=== PATIENT | male | born 1970 | race Caucasian/White ===

== ENCOUNTER → 2016-12-30 | Outpatient (CLI) | payer OTHER ==
[~2016-12-30] MED LIST: ANDROGEL; DDAVP/1; EFFSR150; HYD10; LAMO200T38; LEVO150T48; LRT5; QUET1TAB34; RIZA10TA19; TRAM-10
== END | disposition home or self-care (01) ==
LOC: C.LAB1850 10:53
PROVIDERS: ATTEND Psychiatry & Neurology Neurology
DX: G40.909 Epilepsy, unspecified, not intractable, without status epilepticus (principal)

== ENCOUNTER → 2017-01-14 | Outpatient (CLI) | payer OTHER ==
[2017-01-14 10:18] LABS: BLOOD UREA NITROGEN 16 mg/dl (7-18); BUN/CREATININE RATIO 12.5 (10-20); CALCIUM 9.3 mg/dl (8.5-10.1); CARBON DIOXIDE 28 mmol/L (21-32); CHLORIDE 101 mmol/L (98-107); CHOLESTEROL 207 mg/dl (0-200); GLUCOSE 108 mg/dl (70-99); POTASSIUM 4.4 mmol/L (3.5-5.1); SODIUM 136 mmol/L (136-145); TRIGLYCERIDES 145 mg/dl (0-150); VERY LOW DENSITY LIPOPROT CALC 29 mg/dl
[2017-01-14 10:22] LABS: CHOLESTEROL/HDL RATIO 4.5; HDL CHOLESTEROL 46 mg/dl; LDL CHOLESTEROL CALCULATED 132 mg/dl
== END | disposition home or self-care (01) ==
LOC: C.LAB1850 09:16
PROVIDERS: ATTEND Internal Medicine
DX: R73.9 Hyperglycemia, unspecified (principal); E78.1 Pure hyperglyceridemia

== ENCOUNTER → 2017-02-09 | Outpatient (CLI) | payer OTHER | END | disposition home or self-care (01) | LOC: C.PATHSPEC 14:23 | PROVIDERS: ATTEND Dermatology | DX: L57.0 Actinic keratosis (principal); L91.8 Other hypertrophic disorders of the skin ==

== ENCOUNTER → 2017-03-16 | Outpatient (CLI) | payer OTHER ==
[~2017-03-16] VITALS: Ht 182.9 cm; Wt 96.6 kg
[2017-03-16 09:33] VITALS: BP 154/80; PULSE 85; Ht 182.9 cm; Wt 96.6 kg
== END | disposition home or self-care (01) ==
LOC: C.NEUR 09:16
PROVIDERS: ATTEND Internal Medicine Pulmonary Disease
DX: G47.33 Obstructive sleep apnea (adult) (pediatric) (principal); E23.0 Hypopituitarism

== ENCOUNTER → 2017-04-29 | Outpatient (CLI) | payer OTHER ==
--- NOTE | 2017-04-30 06:12 | PAP/PSG TECHNICIAN REPORT ---
[facility] Content Designer Polysomnogram Report Study name: None Report date: 04/30/2017 Study date: 04/29/2017 Referring Physician: Dr. Mcclellan Name: LINSEY LEIVA JR. Interpreting Physician: Skyler Mcclellan D.O. Date of : 1970 Content Designer: Akash Russell RPSOLIVE. Sex: Male Age: 46 StudyType: PSG Weight: 212 lbs 18.5 inches Height: 46 years, Height 6' 0" Neck Circum: BMI: 28.75 Medications: BENZONATATE 100 MG, LEVOFLOXACIN 500 MG, METHYIPREDNISONE 4 MG, RIZATRIPTAN BENZOATE 10 MG, DIVALPROEX SODIUM 500 MG, FISH OIL 1000 MG, ANDROGEL PUMP, HUMATROPE 12 MG, HYDROCORTISONE 10 MG, SYNTHROID 175 MCG, DESMOPRESSIN ACETATE 0.2 MG, NAPROXEN 500 MG, LORAZEPAM 0.5 MG, Patient History PATIENT HAS HISTORY OF SNORING AND POSSIBLE SLEEP APNEA. OVER THE YEARS HE HAS WORKED SEVERAL JOBS REQUIRING SHIFT WORK. HE STRUGGLES WITH INSOMNIA AND DOESN'T HAVE A REGULAR SLEEP SCHEDULE. HE FEELS HE ONLY SLEEPS FOR 4-5 HOURS AT NIGHT. HE IS HERE TODAY FOR AN EVALUATION FOR CORINA. ESS = 2 RM 7 Parameters Monitored NPSG: E1-M2, E2-M1, Fp1-M2, Fp2-M1, F3-M2, F4-M2, F4-M1, C3-M2, C4-M2, C4-M1, O1-M2, O2-M2, O2-M1, T3-M2, T4-M1, P3-M2, P4-M1, CHIN1, CHIN2, HR, EKG, Legs, PFLOW, SNOR, FLOW, CFLOW, Tidal Volume, THOR, ABDO, SpO2, PLTH, CPRESS, ETCO2 Wave, ETCO2, pH Sleep Architecture Sleep Stages Time at Lights Off 10:46:53 PM STAGES Time (min.) TST (%) Time at Lights On 5:50:53 AM Wake 160.0 -- Total Recording Time (TRT) 424.50 min. N1 4.5 2 Total Sleep Period (TSP) 324.0 min. N2 127.5 48 Total Sleep Time (TST) 264.0min. N3 68.0 26 Awake Time 160.5 min. REM 64.0 24 Wake after Sleep Onset 60.0 min. Sleep Efficiency (SE) 62 % Sleep Onset Latency (MATY) 100.0 min. Number of Stage 1 Shifts None Awakenings 4 Stage Changes 27 Number of REM periods 3 REM 64.0 24 REM Latency 62.5 min. NREM 200.0 76 Body Position Analysis Supine Right Left Side Prone Vertical Total Sleep Time (min.) 309.7 84.0 0.0 84.00 0.0 0.0 Total Sleep Time (%) 68% 32% 0% 32 0% N/A% Total Sleep Time REM (min.) 42.5 21.5 0.0 None 0.0 0.0 Total Sleep Time NREM (min.) 137.5 62.5 0.0 None 0.0 0.0 Intermittent Wake (min.) 129.7 30.3 0.0 None 0.0 0.0 Total Sleep Period (%) 66% None None None None None Arousals Myoclonus (PLM) * Events Count Index Events Count Index Spontaneous 13 3 Events Awake (PLMW) 301 112.9 Respiratory 6 1.4 Events Asleep w/ Arousal (PLMA) 13 3.0 PLM 13 3 Events Asleep w/o Arousal (PLMS) 73 16.6 Snoring 1 0 Total Asleep 86 19.5 Total 33 8 Total 387 55 Respiratory Analysis * CA OA MA CH H RERA Total Count 0 0 0 0 41 3 41 Index 0.0 0.0 0.0 0 9.3 1 10.0 Mean Duration 0.0 0.0 0.0 0.00 23.2 18.7 22.9 Longest Duration 0.0 0.0 0.0 0.00 0.0 20.4 41.2 Respiratory Event Summary Total Supine ~Supine Right Left Prone REM NREM Apneas Count 0 0 0 0 N/A N/A 0 0 Index 0.0 0 0 0.0 N/A N/A 0 0 Hypopneas (4% Desat) Count 41 37 4 4 N/A N/A 6 35 Index 9.3 12.3 3 2.9 N/A N/A 5.6 10.5 Apneas & All Hypopneas Count 41 37 4 4 N/A N/A 6 35 Index 9.3 12 3 3 N/A N/A 5.6 10.5 Respiratory Events (Managed Care Analyst+All Hyp+RERA) Count 41 40 4 4 N/A N/A 6 35 Index 10.0 13 3 2.9 N/A N/A 6.6 11.1 Respiratory Related Arousal Count 6 40 0 0 N/A N/A 1 5 Index 1.4 2 0 0 N/A N/A 1 2 Snoring Analysis Supine Right Left Prone REM NREM Total Snore duration 10.3 min Snores count 120 410 N/A N/A 20 510 530 Snore mean duration 1.2 Sec Snores index 40 293 N/A N/A 18.8 153.0 120.5 TST with snoring (%) 3.9% Desaturation Event Summary: Minimum %SpO2 Event Count Mean/Min/Max Duration(sec.) Desaturation Index % Time In Bed > 90 50 35.2 / 12.3 / 80.9 7.3 98.5 86 - 90 0 N/A 0.0 1.5 81 - 85 0 N/A 0.0 0.0 76 - 80 0 N/A 0.0 0.0 71 - 75 0 N/A 0.0 0.0 66 - 70 0 N/A 0.0 0.0 61 - 65 0 N/A 0.0 0.0 56 - 60 0 N/A 0.0 0.0 51 - 55 0 N/A 0.0 0.0 < 50 0 N/A 0.0 0.0 Total REM NREM Awake <50% 0.0 min. 0.0 min. 0.0 min. 0.0 min. 51 - 60% 0.0 min. 0.0 min. 0.0 min. 0.0 min. 61 - 70% 0.0 min. 0.0 min. 0.0 min. 0.0 min. 71 - 80% 0.0 min. 0.0 min. 0.0 min. 0.0 min. 81 - 90% 6.4 min. 2.2 min. 3.9 min. 0.3 min. 91 - 100% 408.3 min. 61.8 min. 196.1 min. 150.4 min. Average 93 93 93 94 Minimum SpO2 76 86 90 76 Desaturation Event Index 7.1 6.6 10.2 3.4 # Desat. Events below 89% 1 1 N/A N/A Time(%) with Saturation below 89% 0.0 0.0 0.0 0.0 Time(min.) with Saturation below 89% 0.2 0.2 0.0 0.0 Time (mins) REM (mins) NREM (mins) % of TST SpO2 Below 90% 22 6 N16 0.1 SpO2 Below 88% 0 0 0 0 Heart Rate Analysis Min (bpm) Max (bpm) Average (bpm) Awake 54 97 66 NREM 56 88 68 REM 63 90 75 Overall 56 90 70 Supplemental O2 Values Minimum O2 level: None Value Start Time End Time Content Designer Comments Mr. Leiva slept in the right and supine positions. No cardiac arrhythmia noted. Leg movements noted. No bruxism noted. Snoring was noted and scored as a 2 on a scale of 1 through 5. (0=no snoring, 5=snoring loud enough to be heard through a closed door or down the pratt way) Mr. Leiva awoke to use the restroom 2 times during the night. Mr. Leiva stated I slept as well as I do when I am in my own bed. The final report will be interpreted and signed by a sleep physician. The completed physician report will then be placed in the patient medical record. Therapy (cm H2O) 0 TIB (min.) 424.0 TST (min.) 264.0 Sleep Onset (min.) 100.0 REM Onset From Sleep (min.) 62.5 Sleep Efficiency % 62 Wakefulness (%) 38 Wakefulness (min.) 160.5 NREM 1 (%) 2 NREM 1 (min.) 4.5 NREM 2 (%) 48 NREM 2 (min.) 127.5 NREM 3 (%) 26 NREM 3 (min.) 68.0 REM (%) 24 REM (min.) 64.0 # Arousals 33 Arousal Index 8 # Snore 530 Snore Index 120.5 AHI 9.3 AHI Supine 12 AHI Non-Supine 3 NREM AHI 10.5 REM AHI 5.6 RDI 10.0 # Obstructive Apnea 0 # Central Apnea 0 # Mixed Apnea 0 # Hypopneas 41 RERAs 3 Total Respiratory Events 44 Time Below SpO2 89% (min.) 0.2 Mean NREM SpO2 (%) 93 Mean REM SpO2 (%) 93 Mean Sleep SpO2 (%) 93 Min NREM SpO2 (%) 90 Min REM SpO2 (%) 86 Position Supine (min.) 309.7 Position Non-supine (min.) 84.0 LM Index Sleep 19.5 LM Index NREM 21.6 LM Index REM 13.1 Mean Heart Rate (bpm) 70 Min Heart Rate (bpm) 56
--- NOTE | 2017-05-04 12:43 | POLYSOMNOGRAPH REPORT ---
REFERRING PHYSICIAN: Dr. Larry Amaral. CLINICAL DATA: The patient is a 46-year-old male who has a BMI of 28.75. He has a history of having surgical removal of a pituitary adenoma. Following his surgery, it was felt that he likely had obstructive sleep apnea during his hospital stay. He has a history of snoring and sleep onset insomnia and disturbed nocturnal sleep. His Crowley score is only 2 out of a possible 24. This was an in-lab diagnostic polysomnography. SLEEP ARCHITECTURE: The total sleep period was 324 minutes. The total sleep time was 264 minutes. The sleep efficiency was moderately reduced to 62%. Sleep onset latency was severely prolonged to 100 minutes. Wake after sleep onset was increased to 60 minutes. The REM latency was normal at 62.5 minutes. There were 3 REM periods during the night. Sleep consisted of stage N1 of 2%, stage N2 of 48%, stage N3 of 26%, and stage REM 24%. AROUSAL DATA: The patient had a total of 33 arousals including 13 spontaneous arousals, 6 respiratory arousals, 13 PLM arousals, and 1 snoring arousal. The arousal index was 8. PLM DATA: The patient had 86 periodic limb movements of sleep for an index of 19.5. There were 13 arousals, associated with the limb movements for a PLM arousal index of 3.0. EKG: The underlying cardiac rhythm was normal sinus. The cardiac rates ranged from 56 to 90 beats per minute with an average heart rate of 70 beats per minute. RESPIRATORY DATA: The patient had a total of 41 respiratory events, all of which were hypopneas. The hypopneas were scored according to the 4% desaturation rule. The apnea-hypopnea index was 9.3 events per hour. The mean duration of hypopnea was 23.2 seconds. In addition, he had 3 RERAs. The apnea-hypopnea index of 9.3 is compatible with mild obstructive sleep apnea. OXIMETRY DATA: The average saturation for the night was 93%. The minimum saturation was 76%. This appears to be a transient loose probe. This certainly was technical in nature. The patient had 0 minutes below 88%. ASSOCIATE DIRECTOR DATA & ANALYTICS'S COMMENTS: Mr. Leiva slept in the right and supine positions. No cardiac arrhythmia noted. Leg movements noted. No bruxism noted. Snoring was noted and scored as a 2 on a scale of 1 through 5. IMPRESSIONS: 1. Obstructive sleep apnea -- mild. 2. Periodic limb movement disorder. COMMENTS: The patient has mild sleep apnea. He did have a significant delay in sleep onset. This would be compatible with his history of sleep onset insomnia. Also, he was going to bed significantly earlier than he normally does. He spent 66% of the night in the supine position. There was no significant hypoxia. He does have a history of hypertension as well as the hormonal complications related to a pituitary adenoma. Thus, treatment of a sleep apnea likely would be advised. RECOMMENDATIONS: 1. It is suggested that the patient be given a trial of nasal CPAP. He should, however, confer with his neurosurgeon to be certain that they have no objection to nasal CPAP therapy following his surgery. 2. The patient has a mild elevation of body mass index of 28.75. Await reduction program as advised as even mild weight loss may result in improvement in sleep disordered breathing. 3. The patient should avoid sleeping in the supine position if at all possible.
== END | disposition home or self-care (01) ==
LOC: C.NEUR 20:00
PROVIDERS: ATTEND Internal Medicine Pulmonary Disease
DX: G47.33 Obstructive sleep apnea (adult) (pediatric) (principal)

== ENCOUNTER → 2017-05-12 | Outpatient (CLI) | payer OTHER ==
[2017-05-17 16:31] LABS: ILGF1 Z SCORE MALE 1.3 SD (-2.0 - +2.0)
== END | disposition home or self-care (01) ==
LOC: C.LAB1850 10:12
PROVIDERS: ATTEND Internal Medicine Endocrinology, Diabetes & Metabolism
DX: Z87.898 Personal history of other specified conditions (principal)

== ENCOUNTER → 2017-06-08 | Outpatient (CLI) | payer OTHER ==
[~2017-06-08] VITALS: Ht 180.3 cm; Wt 96.3 kg
[2017-06-08 09:38] VITALS: BP 126/85; PULSE 79; Ht 180.3 cm; Wt 96.3 kg
== END | disposition home or self-care (01) ==
LOC: C.NEUR 09:08
PROVIDERS: ATTEND Internal Medicine Pulmonary Disease
DX: G47.33 Obstructive sleep apnea (adult) (pediatric) (principal); G47.00 Insomnia, unspecified; F30.9 Manic episode, unspecified; L30.9 Dermatitis, unspecified; R73.9 Hyperglycemia, unspecified; Z79.899 Other long term (current) drug therapy

== ENCOUNTER → 2017-07-13 | Outpatient (CLI) | payer OTHER ==
[~2017-07-13] MED LIST changes: +GADAVIST IV PRN
--- NOTE | 2017-07-13 08:06 | DIAGNOSTIC IMAGING REPORT ---
BRAIN COMBO FOR PITUITARY CLINICAL HISTORY: 47 years-old Male presenting with PITUITARY NEOPLASM, hypogonadism, to prior surgery. TECHNIQUE: Multisequence, multiplanar MR imaging of the brain was performed before and after the administration of intravenous contrast. IV contrast: 9 mL of Gadavist. COMPARISON: 09/07/2016. FINDINGS: Post surgical changes of the sella with redemonstration of resection of prior pituitary mass. The infundibulum is midline and remains visible. Minimal thickening of the distal aspect of the infundibulum, which enhances on postcontrast imaging, likely normal. Eccentric right-sided hypovascular thick of soft tissue is noted along the floor of the sella, possibly minimal residual pituitary tissue versus postsurgical change. Cavernous portions of the carotid arteries preserved. Mucosal thickening in the sphenoid sinuses and posterior ethmoid air cells on the right. Additional mild mucosal thickening in the maxillary sinuses inferiorly. Ventricles and sulci normal in size. Posterior fossa arachnoid cyst. Brain parenchyma normal in appearance with preserved elias-white differentiation. No mass effect or midline shift. No hemorrhage or acute territorial infarct. T2 skull base flow voids preserved. No abnormal parenchymal enhancement. Bone marrow signal intensity within the calvarium within normal limits. IMPRESSION: Postsurgical changes of pituitary mass resection. Eccentric right-sided hypovascular soft tissue along the floor the sella likely represents postsurgical change versus minimal residual pituitary tissue. No convincing evidence of recurrent mass. Mild mucosal thickening in the paranasal sinuses. No acute intracranial pathology. Electronically signed by: Taye Boogie M.D. 07/13/2017 8:05 AM Dictated Date/Time: 07/13/2017 7:57 AM
== END | disposition home or self-care (01) ==
LOC: C.MRI 06:33
PROVIDERS: ATTEND Internal Medicine Endocrinology, Diabetes & Metabolism
DX: E23.0 Hypopituitarism (principal); E23.2 Diabetes insipidus; Z87.898 Personal history of other specified conditions

== ENCOUNTER → 2017-10-25 | Outpatient (CLI) | payer OTHER ==
[~2017-10-25] MED LIST changes: -GADAVIST IV PRN
== END | disposition home or self-care (01) ==
LOC: C.PATHSPEC 17:11
PROVIDERS: ATTEND Dermatology
DX: D22.4 Melanocytic nevi of scalp and neck (principal); L82.1 Other seborrheic keratosis

== ENCOUNTER → 2017-10-25 | Outpatient (CLI) | payer OTHER ==
[2017-10-25 15:22] LABS: BASO % 0.3 %; BASO ABS # 0.03 K/uL (0-0.2); COMPLETE YES; EOS % 1.1 %; HEMATOCRIT 46.6 % (42-52); IG% 0.3 %; LYMPH % 24.6 %; LYMPH ABS # 2.18 K/uL (1.2-3.4); MEAN CELL VOLUME 84.3 fL (80-100); MEAN CORPUSCULAR HEMOGLOBIN 30.7 pg (25-34); MEAN CORPUSCULAR HGB CONC 36.5 g/dl (32-36); MEAN PLATELET VOLUME 9.1 fL (7.4-10.4); MONO % 6.5 %; NEUT % 67.2 %; PLATELET COUNT 211 K/uL (130-400); RED BLOOD COUNT 5.53 M/uL (4.7-6.1); WHITE BLOOD COUNT 8.86 K/uL (4.8-10.8)
[2017-10-25 15:34] LABS: ALT/SGPT 25 U/L (12-78); BLOOD UREA NITROGEN 17 mg/dl (7-18); BUN/CREATININE RATIO 12.9 (10-20); CALCIUM 9.2 mg/dl (8.5-10.1); CARBON DIOXIDE 27 mmol/L (21-32); CHLORIDE 102 mmol/L (98-107); CREATININE 1.29 mg/dl (0.60-1.40); GLUCOSE 106 mg/dl (70-99); POTASSIUM 3.7 mmol/L (3.5-5.1); SODIUM 137 mmol/L (136-145)
[2017-10-25 15:37] LABS: ALB/GLOB RATIO 1.4 (0.9-2); ALKALINE PHOSPHATASE 91 U/L (45-117); AST/SGOT 13 U/L (15-37)
== END | disposition home or self-care (01) ==
LOC: C.LAB1850 14:15
PROVIDERS: ATTEND Psychiatry & Neurology Neurology
DX: G40.909 Epilepsy, unspecified, not intractable, without status epilepticus (principal); G43.909 Migraine, unspecified, not intractable, without status migrainosus

== ENCOUNTER → 2017-11-23 | Outpatient (CLI) | payer OTHER ==
[~2017-11-23] MED LIST changes: +LAMO200T35; -LAMO200T38
--- NOTE | 2017-11-23 17:58 | DIAGNOSTIC IMAGING REPORT ---
R ELBOW MIN 3 VIEWS ROUTINE HISTORY: 47 years-old Male S59.901A Injury of elbow, [id number] acute right elbow pain status post fall COMPARISON: None available TECHNIQUE: 3 views of the right elbow FINDINGS: No acute fracture, subluxation or significant degenerative changes. No large joint effusion or opaque foreign body. IMPRESSION: No acute bony abnormality. The above report was generated using voice recognition software. It may contain grammatical, syntax or spelling errors. Electronically signed by: Jaime Tolentino M.D. 11/23/2017 5:56 PM Dictated Date/Time: 11/23/2017 5:55 PM
--- NOTE | 2017-11-23 17:59 | DIAGNOSTIC IMAGING REPORT ---
R SHOULDER MIN 2 VIEWS ROUTINE HISTORY: 47 years-old Male S49.91XA Right shoulder [id number] acute right shoulder pain status post trauma COMPARISON: Chest radiographs 08/07/2010 TECHNIQUE: 3 views of the right shoulder FINDINGS: No acute fracture, subluxation or significant degenerative changes. No intra-articular loose body. Imaged lung kong appear clear. IMPRESSION: No acute fracture or dislocation. The above report was generated using voice recognition software. It may contain grammatical, syntax or spelling errors. Electronically signed by: Jaime Tolentino M.D. 11/23/2017 5:58 PM Dictated Date/Time: 11/23/2017 5:57 PM
== END | disposition home or self-care (01) ==
LOC: C.RAD 17:10
PROVIDERS: ATTEND Internal Medicine
DX: S49.91XA Unspecified injury of right shoulder and upper arm, initial encounter (principal); X58.XXXA Exposure to other specified factors, initial encounter; S59.901A Unspecified injury of right elbow, initial encounter

== ENCOUNTER → 2017-11-29 | Outpatient (CLI) | payer OTHER ==
[2017-11-29 09:33] LABS: BASO % 0.7 %; BASO ABS # 0.05 K/uL (0-0.2); EOS % 1.9 %; EOS ABS # 0.13 K/uL (0-0.5); HEMATOCRIT 46.7 % (42-52); IG# 0.01 K/uL (0.00-0.02); LYMPH % 25.7 %; LYMPH ABS # 1.75 K/uL (1.2-3.4); MEAN CELL VOLUME 84.6 fL (80-100); MEAN CORPUSCULAR HEMOGLOBIN 30.8 pg (25-34); MEAN CORPUSCULAR HGB CONC 36.4 g/dl (32-36); MONO % 10.1 %; MONO ABS # 0.69 K/uL (0.11-0.59); NEUT % 61.5 %; NEUT ABS # 4.17 K/uL (1.4-6.5); PLATELET COUNT 214 K/uL (130-400); RED CELL DISTRIBUTION WIDTH CV 13.6 % (11.5-14.5); RED CELL DISTRIBUTION WIDTH SD 41.4 fL (36.4-46.3)
[2017-11-29 10:36] LABS: BLOOD UREA NITROGEN 18 mg/dl (7-18); CALCIUM 9.3 mg/dl (8.5-10.1); CARBON DIOXIDE 27 mmol/L (21-32); CREATININE 1.37 mg/dl (0.60-1.40); GLUCOSE 105 mg/dl (70-99); POTASSIUM 3.6 mmol/L (3.5-5.1); SODIUM 137 mmol/L (136-145)
[2017-11-29 10:49] LABS: ALKALINE PHOSPHATASE 86 U/L (45-117); ALT/SGPT 29 U/L (12-78); AST/SGOT 15 U/L (15-37); CHOLESTEROL 215 mg/dl (0-200); LDL CHOLESTEROL CALCULATED 133 mg/dl; TOTAL PROTEIN 6.9 gm/dl (6.4-8.2)
== END | disposition home or self-care (01) ==
LOC: C.LAB1850 08:49
PROVIDERS: ATTEND Internal Medicine
DX: E78.1 Pure hyperglyceridemia (principal); E03.8 Other specified hypothyroidism; R73.9 Hyperglycemia, unspecified; E23.2 Diabetes insipidus

== ENCOUNTER → 2017-12-07 | Outpatient (CLI) | payer OTHER | END | disposition home or self-care (01) | LOC: C.LABPBG 08:08 | PROVIDERS: ATTEND Psychiatry & Neurology Neurology | DX: G40.909 Epilepsy, unspecified, not intractable, without status epilepticus (principal) ==

== ENCOUNTER → 2017-12-08 | Outpatient (CLI) | payer OTHER | END | disposition home or self-care (01) | LOC: C.LAB1850 09:39 | PROVIDERS: ATTEND Physician Assistant | DX: G40.909 Epilepsy, unspecified, not intractable, without status epilepticus (principal) ==

== ENCOUNTER → 2017-12-19 | Outpatient (CLI) | payer OTHER ==
[~2017-12-19] MED LIST changes: +GADAVIST IV PRN
--- NOTE | 2017-12-19 07:44 | DIAGNOSTIC IMAGING REPORT ---
BRAIN COMBO FOR SEIZURE CLINICAL HISTORY: 47 years-old Male presenting with G40.909 Seizure [id number] headaches, history of surgery x2. TECHNIQUE: Multisequence, multiplanar MR imaging of the brain was performed before and after the administration of intravenous contrast. IV contrast: 9.6 mL of Gadavist. COMPARISON: 07/13/2017. FINDINGS: Postsurgical changes of pituitary mass resection with stable slightly asymmetric soft tissue along the right floor the sella. This is essentially unchanged dating back to 2005. No convincing evidence of recurrent mass. Stable to fossa arachnoid cyst. No hydrocephalus. Brain parenchyma normal in appearance with preserved elias-white differentiation. No mass effect or midline shift. No restricted diffusion to suggest acute ischemia. No hemorrhage. No extra-axial fluid collection. T2 skull base flow voids preserved. No abnormal parenchymal enhancement. Bone marrow signal intensity within the calvarium within normal limits. IMPRESSION: 1. Stable post surgical changes status post pituitary mass resection. The appearance is essentially unchanged dating back to 2005. No convincing evidence of recurrent mass. No acute intracranial pathology. Electronically signed by: Taye Boogie M.D. 12/19/2017 7:42 AM Dictated Date/Time: 12/19/2017 7:33 AM
== END | disposition home or self-care (01) ==
LOC: C.MRI 06:24
PROVIDERS: ATTEND Physician Assistant
DX: R51 Headache (principal); G40.909 Epilepsy, unspecified, not intractable, without status epilepticus; Z98.890 Other specified postprocedural states

== ENCOUNTER → 2018-03-27 | Outpatient (CLI) | payer OTHER ==
[~2018-03-27] MED LIST changes: -GADAVIST IV PRN
--- NOTE | 2018-03-27 16:17 | DIAGNOSTIC IMAGING REPORT ---
CHEST 2 VIEWS ROUTINE HISTORY: 47 years-old Male R05 [id number] acute cough COMPARISON: Chest radiograph 08/07/2010 TECHNIQUE: PA and lateral views of the chest FINDINGS: Cardiomediastinal and hilar silhouettes are within normal limits. There is no pneumothorax, pleural effusion, focal airspace consolidation or overt pulmonary edema. Bones of the chest appear grossly intact. Healed remote left clavicular fracture. IMPRESSION: No acute process. The above report was generated using voice recognition software. It may contain grammatical, syntax or spelling errors. Electronically signed by: Jaime Tolentino M.D. 03/27/2018 4:15 PM Dictated Date/Time: 03/27/2018 4:14 PM
[2018-03-27 16:45] LABS: BASO % 0.4 %; BASO ABS # 0.03 K/uL (0-0.2); EOS % 1.7 %; EOS ABS # 0.13 K/uL (0-0.5); HEMATOCRIT 47.5 % (42-52); HEMOGLOBIN 17.6 g/dL (14.0-18.0); IG# 0.02 K/uL (0.00-0.02); LYMPH % 36.3 %; MEAN CELL VOLUME 83.6 fL (80-100); MEAN CORPUSCULAR HGB CONC 37.1 g/dl (32-36); MEAN PLATELET VOLUME 8.6 fL (7.4-10.4); MONO % 8.2 %; MONO ABS # 0.61 K/uL (0.11-0.59); NEUT % 53.1 %; NEUT ABS # 3.95 K/uL (1.4-6.5); PLATELET COUNT 180 K/uL (130-400); RED CELL DISTRIBUTION WIDTH CV 13.3 % (11.5-14.5); RED CELL DISTRIBUTION WIDTH SD 39.8 fL (36.4-46.3); WHITE BLOOD COUNT 7.44 K/uL (4.8-10.8)
[2018-03-27 17:05] LABS: BLOOD UREA NITROGEN 13 mg/dl (7-18); CALCIUM 8.9 mg/dl (8.5-10.1); CARBON DIOXIDE 29 mmol/L (21-32); CREATININE 1.34 mg/dl (0.60-1.40); GLUCOSE 92 mg/dl (70-99); POTASSIUM 3.7 mmol/L (3.5-5.1); SODIUM 139 mmol/L (136-145)
== END | disposition home or self-care (01) ==
LOC: C.RAD1850 15:59
PROVIDERS: ATTEND Nurse Practitioner Adult Health
DX: E23.2 Diabetes insipidus (principal); E27.49 Other adrenocortical insufficiency; R50.9 Fever, unspecified; R05 Cough; E78.1 Pure hyperglyceridemia

== ENCOUNTER → 2018-04-10 | Outpatient (CLI) | payer OTHER | END | disposition home or self-care (01) | LOC: C.LABPBG 08:55 | PROVIDERS: ATTEND Physician Assistant | DX: G40.909 Epilepsy, unspecified, not intractable, without status epilepticus (principal) ==

== ENCOUNTER → 2018-06-19 | Outpatient (CLI) | payer OTHER | END | disposition home or self-care (01) | LOC: C.LAB1850 16:29 | PROVIDERS: ATTEND Urology | DX: R39.9 Unspecified symptoms and signs involving the genitourinary system (principal) ==

== ENCOUNTER 2021-04-19 18:29 | Observation (INO) ==
[2021-04-19 19:11] LABS: Basophils # (auto) 0.02 K/uL (0-0.2); Basophils % (auto) 0.2 %; Eosinophils % (auto) 0.8 %; Hematocrit (blood only) 48.2 % (42-52); Hemoglobin 17.1 g/dL (14.0-18.0); Immature Granulocytes # (auto) 0.14 K/uL (0.00-0.02); Immature Granulocytes % (auto) 1.2 %; Lymphocytes # (auto) 2.88 K/uL (1.2-3.4); Lymphocytes % (auto) 24.4 %; Mean Corpuscular Hemoglobin 32.7 pg (25-34); Mean Corpuscular Hgb Conc 35.5 g/dL (32-36); Mean Corpuscular Volume 92.2 fL (80-100); Mean Platelet Volume 8.7 fL (7.4-10.4); Monocytes # (auto) 0.81 K/uL (0.11-0.59); Monocytes % (auto) 6.9 %; Neutrophils # (auto) 7.83 K/uL (1.4-6.5); Neutrophils % (auto) 66.5 %; Platelet Count 131 K/uL (130-400); RDW Coefficient of Variation 14.6 % (11.5-14.5); RDW Standard Deviation 49.1 fL (36.4-46.3); Red Blood Count 5.23 M/uL (4.7-6.1); White Blood Count 11.78 K/uL (4.8-10.8)
--- NOTE | 2021-04-19 19:18 | Emergency Department Note ---
Impression & Plan Pulmonary edema, Elevated LFTs, Abnormal weight gain, SOB (shortness of breath) ED Provider Note NAME: LINSEY VIRAMONTES JR AGE: 50 SEX: M : 1970 ARRIVES VIA: Walk-In INFORMANT: Patient, ED PROVIDER(S): Larry Franklin DO CHIEF COMPLAINT: Epigastric pain HPI: The patient is a 50-year-old male who presented to the emergency department for an evaluation of epigastric pain. The patient states he has pain in his epigastric region and behind his sternum which has been ongoing for the last few months. He notices it intermittently. He is also noticed weight gain and shortness of breath. He is also noticed increasing shortness of breath with exertion. The patient did not talk to his family doctor about the symptoms. He did recently have injections into his lumbar spine with Dr. Garcia with pain management. He states he is been compliant with all his other medications. He does have a history of renal insufficiency at times. He is concerned his kidneys may be not working as well as normal. He denies having any fever or cough. He has had no exposure to COVID-19. The patient states his symptoms are moderate to severe at this time. ROS: See above HPI for pertinent positives & negatives. A total of 10 systems reviewed and were otherwise negative. PAST MEDICAL HISTORY: See Below PAST SURGICAL HISTORY: See Below FAMILY HISTORY: See Below SOCIAL HISTORY: See Below HOME MEDICATIONS: See Below ALLERGIES: See Below VITALS: See Below PHYSICAL EXAMINATION: GENERAL: Patient is awake alert in no acute distress patient is resting comfortably and showing no signs of anxiety EYES: The conjunctivae are clear. The pupils are round and reactive. EARS, NOSE, MOUTH AND THROAT: The nose is without any evidence of any deformity. Mucous membranes are moist. Tongue is midline. NECK: The neck is nontender and supple. RESPIRATORY: Diminished breath sounds are noted at both bases. There were rales at both bases right greater than left. CARDIOVASCULAR: Regular rate and rhythm noted there no murmurs rubs or gallops normal S1 normal S2. GASTROINTESTINAL: The abdomen is soft. Abdomen is nontender. MUSCULOSKELETAL/EXTREMITIES: There is no evidence of gross deformity full range of motion is noted in the hips and shoulders. SKIN: Pedal edema was noted bilaterally. Skin was warm and dry. NEUROLOGIC: Patient is awake alert and oriented x3 strength is symmetric patellar reflexes are 2+ bilaterally MEDICAL DECISION MAKING: The patient is a 50-year-old male who presented to the emergency department for an evaluation of difficulty breathing. The patient did notice shortness of breath mostly at night but not necessarily associated with lying flat. The cardiac history but when he talked to visiting nurse this evening he was referre d to the emergency department for further evaluation. The patient did have rales at the bases. Chest x-ray revealed signs of pulmonary edema. He was treated with Lasix in the emergency department. I discussed the patient's laboratory and radiographic studies with him. Since he has no history of similar issues and has significant weight gain his significant other did request that he stay in the hospital for inpatient work-up. The [facility] hospitalist was notified about the patient in the emergency department. They will evaluate the patient in the emergency department. Triage Nursing notes reviewed. Prior medical records reviewed Vital Signs: reviewed and remarkable for elevated blood pressure. Differential diagnosis: Reactive airway disease, pneumonia, pneumothorax, COPD, CHF, infections, cardiac ischemia, pulmonary embolism, musculoskeletal, gastrointestinal, as well as other pathologies. ER treatment provided: See below Diagnostics interpreted by me: ECG: EKG was obtained in the emergency department. My interpretation is normal sinus rhythm at 83 bpm. There is no ectopy. There is no acute ST segment abnormalities noted. This was compared to a tracing from March 01, 2008. No significant changes were noted. Cardiac Monitoring: An order was placed for continuous cardiac monitoring. The monitor shows a rate of 86 bpm with sinus rhythm. Laboratory studies: As stated above and show below. Imaging studies: See below Consultation(s): Dr. Delcid was notified about the patient. 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 last grand mal Oct 2020 > follows Dr. José Luis Tremor Surgical History History of bladder surgery remove mass History of brain [place] x2[place] [facility] [place] [facility]for brain tumors History of colonoscopy History of esophagogastroduodenoscopy (EGD) History of lithotripsy History of prostate surgery remove mass History of tooth extraction History of wisdom tooth extraction Status post right foot surgery replaced 5th metatarsal--hardware in place Family History Grandmother (Paternal) Family history of diabetes mellitus Aunt Family history of diabetes mellitus Uncle Family history of diabetes mellitus Father Prostate cancer Heart disease Mother Cardiac disorder Grandmother (Maternal) Myocardial infarction Other No family history of adverse response to anesthesia Denies family history of Ovarian cancer Breast cancer Colorectal cancer Social History Smoking Status: Never smoker Second Hand Exposure: No; Hx Alcohol Use: No Hx Substance Use: No Preferred Language: Setswana Communication Ability: Effective Visual Impairment: No Limitations Hearing Ability: Normal Color Card Maker Required: No Beliefs That Will Affect Care: None marital status: Legally Current Living Situation: Significant Other current occupational status: unemployed Other Information That Helps Us Care for You: No Feels Safe at Home: Yes Safety Concerns: Feels Safe At This Time Childhood Exposure to Second-Hand Smoke: Yes (parents smoked) Seatbelt Use: always Assistive Devices: Glasses Allergies Allergies Allergy/AdvReac Type Severity Reaction Status Date / Time Iodinated Contrast Media Allergy Severe face/eye Verified 04/19/21 18:59 swelling Quinolones Allergy Intermediate HIVES Verified 04/19/21 18:59 Home Meds Home Medications Medication Instructions Recorded Confirmed naproxen 500 mg tablet 500 mg PO Q12H PRN #60 tab 06/15/19 04/19/21 multivitamin 1 tab PO QAM 07/12/19 04/19/21 Norditropin FlexPro 0.3 mg SQ PM 02/23/21 04/19/21 celecoxib 200 mg PO QAM 02/23/21 04/19/21 diclofenac sodium [Voltaren] 4 g TOPICAL QID PRN 02/23/21 04/19/21 divalproex [Depakote] See Rx Instructions .ROUTE .COMPLEX 02/23/21 04/19/21 rizatriptan 10 mg PO DIRECTED PRN 02/23/21 04/19/21 testosterone 1 pump TOP PM 02/23/21 04/19/21 benztropine 0.5 mg PO BID 04/19/21 04/19/21 duloxetine [Cymbalta] 120 mg PO DAILY 04/19/21 04/19/21 rimegepant [Nurtec ODT] 75 mg PO DAILY PRN 04/19/21 04/19/21 Previous Rx's Medication Instructions Recorded cyclobenzaprine 10 mg tablet 10 mg PO BID PRN 30 Days #60 tab 09/18/20 propranolol 160 mg capsule,24 160 mg PO HS #30 cap 11/11/20 hr,extended release propranolol 20 mg tablet 20 mg PO DAILY PRN #30 tab 11/17/20 hydrocortisone 10 mg tablet 10 mg PO .COMPLEX #135 tab 12/08/20 lorazepam 0.5 mg tablet 0.5 mg PO .COMPLEX PRN 30 Days #30 01/22/21 tab zolmitriptan 5 mg tablet 5 mg PO .COMPLEX PRN #9 tab 01/27/21 desmopressin 0.2 mg tablet 0.2 mg PO BID #60 tab 02/02/21 galcanezumab-gnlm 120 mg/mL 120 mg SQ Q4WK #1 ml 03/12/21 subcutaneous pen injector alfuzosin 10 mg tablet,extended 10 mg PO DAILY #90 tab 04/06/21 release 24 hr dutasteride 0.5 mg capsule 0.5 mg PO DAILY #90 cap 04/06/21 levothyroxine 175 mcg tablet 175 mcg PO QAM #90 tab 04/10/21 Results & Data (ED) Vital Signs Vital Signs - 24 hr 04/19/21 18:38 04/19/21 18:49 04/19/21 18:52 Temperature 36.3 C L Temperature Source Temporal Artery Scan Pulse Rate 86 84 Pulse Rate from SpO2 Sensor 84 Respiratory Rate 22 22 Respiratory Depth Normal Blood Pressure 170/83 H 153/108 H Blood Pressure Mean 112 123 Pulse Oximetry 97 95 95 Oxygen Delivery Method Room Air Room Air Sepsis Recent Fever Within 48 Hours No Sepsis New/Unexplained Change in Mental Status N/A Sepsis Action Taken by Nursing No Action Required 04/19/21 18:54 04/19/21 19:00 04/19/21 19:01 Temperature Temperature Source Pulse Rate 86 85 84 Pulse Rate from SpO2 Sensor 85 86 84 Respiratory Rate 21 20 19 Respiratory Depth Blood Pressure 175/92 H Blood Pressure Mean 119 Pulse Oximetry 95 96 96 Oxygen Delivery Method Sepsis Recent Fever Within 48 Hours Sepsis New/Unexplained Change in Mental Status Sepsis Action Taken by Nursing 04/19/21 19:04 04/19/21 19:10 04/19/21 19:15 Temperature Temperature Source Pulse Rate 81 82 Pulse Rate from SpO2 Sensor 81 82 Respiratory Rate 17 20 Respiratory Depth Blood Pressure 137/90 Blood Pressure Mean 105 Pulse Oximetry 94 95 Oxygen Delivery Method Room Air Sepsis Recent Fever Within 48 Hours Sepsis New/Unexplained Change in Mental Status Sepsis Action Taken by Nursing 04/19/21 19:20 04/19/21 19:30 04/19/21 19:32 Temperature Temperature Source Pulse Rate 79 79 81 Pulse Rate from SpO2 Sensor 79 79 81 Respiratory Rate 16 18 20 Respiratory Depth Blood Pressure 140/93 Blood Pressure Mean 108 Pulse Oximetry 94 95 94 Oxygen Delivery Method Sepsis Recent Fever Within 48 Hours Sepsis New/Unexplained Change in Mental Status Sepsis Action Taken by Nursing 04/19/21 19:33 04/19/21 19:40 04/19/21 19:45 Temperature Temperature Source Pulse Rate 80 80 82 Pulse Rate from SpO2 Sensor 80 80 82 Respiratory Rate 20 17 16 Respiratory Depth Blood Pressure 154/94 H Blood Pressure Mean 114 Pulse Oximetry 94 95 93 Oxygen Delivery Method Sepsis Recent Fever Within 48 Hours Sepsis New/Unexplained Change in Mental Status Sepsis Action Taken by Nursing 04/19/21 19:50 04/19/21 20:00 04/19/21 20:01 Temperature Temperature Source Pulse Rate 76 77 79 Pulse Rate from SpO2 Sensor 76 78 79 Respiratory Rate 17 16 15 Respiratory Depth Blood Pressure 150/86 H Blood Pressure Mean 107 Pulse Oximetry 94 95 95 Oxygen Delivery Method Sepsis Recent Fever Within 48 Hours Sepsis New/Unexplained Change in Mental Status Sepsis Action Taken by Nursing 04/19/21 20:10 04/19/21 20:15 04/19/21 20:20 Temperature Temperature Source Pulse Rate 79 81 79 Pulse Rate from SpO2 Sensor 80 81 79 Respiratory Rate 24 21 16 Respiratory Depth Blood Pressure 137/105 H Blood Pressure Mean 115 Pulse Oximetry 95 96 94 Oxygen Delivery Method Sepsis Recent Fever Within 48 Hours Sepsis New/Unexplained Change in Mental Status Sepsis Action Taken by Nursing 04/19/21 20:30 04/19/21 20:40 04/19/21 20:46 Temperature Temperature Source Pulse Rate 79 80 78 Pulse Rate from SpO2 Sensor 79 81 79 Respiratory Rate 17 18 16 Respiratory Depth Blood Pressure 147/79 H 144/89 H Blood Pressure Mean 101 107 Pulse Oximetry 95 96 96 Oxygen Delivery Method Sepsis Recent Fever Within 48 Hours Sepsis New/Unexplained Change in Mental Status Sepsis Action Taken by Nursing 04/19/21 20:50 04/19/21 21:44 04/19/21 21:46 Temperature Temperature Source Pulse Rate 85 90 80 Pulse Rate from SpO2 Sensor 84 80 Respiratory Rate 32 H 14 16 Respiratory Depth Blood Pressure 152/72 H Blood Pressure Mean 98 Pulse Oximetry 96 97 Oxygen Delivery Method Sepsis Recent Fever Within 48 Hours Sepsis New/Unexplained Change in Mental Status Sepsis Action Taken by Nursing 04/19/21 21:50 04/19/21 22:00 04/19/21 22:01 Temperature Temperature Source Pulse Rate 80 79 82 Pulse Rate from SpO2 Sensor 79 79 82 Respiratory Rate 17 19 Respiratory Depth Blood Pressure 155/110 H Blood Pressure Mean 125 Pulse Oximetry 97 95 95 Oxygen Delivery Method Sepsis Recent Fever Within 48 Hours Sepsis New/Unexplained Change in Mental Status Sepsis Action Taken by Nursing 04/19/21 22:10 04/19/21 22:15 04/19/21 22:16 Temperature Temperature Source Pulse Rate 79 77 76 Pulse Rate from SpO2 Sensor 79 78 77 Respiratory Rate 16 22 18 Respiratory Depth Blood Pressure 159/105 H Blood Pressure Mean 123 Pulse Oximetry 94 97 95 Oxygen Delivery Method Sepsis Recent Fever Within 48 Hours Sepsis New/Unexplained Change in Mental Status Sepsis Action Taken by Jail Medications Current Medication List: was personally reviewed by me Laboratory Data Attestation: I reviewed the patient's lab results. Result diagrams: 04/19/21 18:55 04/19/21 18:55 Lab Results 04/19/21 04/19/21 04/19/21 Range/Units 18:55 18:55 18:55 WBC 11.78 H (4.8-10.8) K/uL RBC 5.23 (4.7-6.1) M/uL Hgb 17.1 (14.0-18.0) g/dL Hct 48.2 (42-52) % MCV 92.2 (80-100) fL MCH 32.7 (25-34) pg MCHC 35.5 (32-36) g/dL RDW Std Deviation 49.1 H (36.4-46.3) fL RDW Coeff of Yanira 14.6 H (11.5-14.5) % Plt Count 131 (130-400) K/uL MPV 8.7 (7.4-10.4) fL Immature Gran % (Auto) 1.2 % Neut % (Auto) 66.5 % Lymph % (Auto) 24.4 % Walker % (Auto) 6.9 % Eos % (Auto) 0.8 % Baso % (Auto) 0.2 % Neut # (Auto) 7.83 H (1.4-6.5) K/uL Lymph # (Auto) 2.88 (1.2-3.4) K/uL Walker # (Auto) 0.81 H (0.11-0.59) K/uL Eos # (Auto) 0.10 (0-0.5) K/uL Baso # (Auto) 0.02 (0-0.2) K/uL Immature Gran # (Auto) 0.14 H (0.00-0.02) K/uL PT 10.9 (9.0-12.0) Seconds INR 1.1 (0.9-1.1) APTT 26.1 (21.0-31.0) Seconds PTT Ratio 1.0 Sodium 136 (136-145) mmol/L Potassium 4.4 (3.5-5.1) mmol/L Chloride 104 (98-107) mmol/L Carbon Dioxide 28 (21-32) mmol/L Anion Gap 5.0 (3-11) BUN 23 H (7-18) mg/dl Creatinine 1.19 (0.6-1.4) mg/dl Est Cr Clr Drug Dosing 95.5 ml/min Est GFR ( Amer) 80.9 ml/min Est GFR (Non-Af Amer) 69.8 ml/min BUN/Creatinine Ratio 18.9 (10-20) Glucose 119 H (70-99) mg/dl Calcium 8.9 (8.5-10.1) mg/dl Magnesium 1.9 (1.8-2.4) mg/dl Total Bilirubin 0.5 (0.2-1) mg/dl AST 58 H (15-37) U/L ALT 97 H (12-78) U/L Alkaline Phosphatase 56 (45-117) U/L Troponin I < 0.015 (0-0.045) ng/ml NT-Pro-B Natriuret Pep 21 (0-900) pg/ml Total Protein 6.2 L (6.4-8.2) gm/dl Albumin 3.5 (3.4-5.0) gm/dl Globulin 2.7 (2.5-4.0) gm/dl Albumin/Globulin Ratio 1.3 (0.9-2) Specimen Hemolysis Urine Color Urine Appearance (Clear) Urine pH (4.5-7.5) Ur Specific [place] (1.000-1.030) Urine Protein (Negative) Urine Glucose (UA) (Negative) Urine Ketones (Negative) Urine Blood (Negative) Urine Nitrite (Negative) Urine Bilirubin (Negative) Urine Urobilinogen (Negative) Ur Leukocyte Esterase (Negative) Urine RBC (0-4) /hpf Urine WBC (0-5) /hpf Ur Epithelial Cells (0-5) /lpf Urine Bacteria (Negative) Urine Mucus (None Prsent) COVID-19 Eval Order SARS-CoV-2 (PCR) (Negative) 04/19/21 04/19/21 04/19/21 Range/Units 21:43 22:14 22:14 WBC (4.8-10.8) K/uL RBC (4.7-6.1) M/uL Hgb (14.0-18.0) g/dL Hct (42-52) % MCV (80-100) fL MCH (25-34) pg MCHC (32-36) g/dL RDW Std Deviation (36.4-46.3) fL RDW Coeff of Yanira (11.5-14.5) % Plt Count (130-400) K/uL MPV (7.4-10.4) fL Immature Gran % (Auto) % Neut % (Auto) % Lymph % (Auto) % Walker % (Auto) % Eos % (Auto) % Baso % (Auto) % Neut # (Auto) (1.4-6.5) K/uL Lymph # (Auto) (1.2-3.4) K/uL Walker # (Auto) (0.11-0.59) K/uL Eos # (Auto) (0-0.5) K/uL Baso # (Auto) (0-0.2) K/uL Immature Gran # (Auto) (0.00-0.02) K/uL PT (9.0-12.0) Seconds INR (0.9-1.1) APTT (21.0-31.0) Seconds PTT Ratio Sodium (136-145) mmol/L Potassium (3.5-5.1) mmol/L Chloride (98-107) mmol/L Carbon Dioxide (21-32) mmol/L Anion Gap (3-11) BUN (7-18) mg/dl Creatinine (0.6-1.4) mg/dl Est Cr Clr Drug Dosing ml/min Est GFR ( Amer) ml/min Est GFR (Non-Af Amer) ml/min BUN/Creatinine Ratio (10-20) Glucose (70-99) mg/dl Calcium (8.5-10.1) mg/dl Magnesium (1.8-2.4) mg/dl Total Bilirubin (0.2-1) mg/dl AST (15-37) U/L ALT (12-78) U/L Alkaline Phosphatase (45-117) U/L Troponin I (0-0.045) ng/ml NT-Pro-B Natriuret Pep (0-900) pg/ml Total Protein (6.4-8.2) gm/dl Albumin (3.4-5.0) gm/dl Globulin (2.5-4.0) gm/dl Albumin/Globulin Ratio (0.9-2) Specimen Hemolysis Urine Color Yellow Urine Appearance Clear (Clear) Urine pH 6.0 (4.5-7.5) Ur Specific [place] >= 1.030 (1.000-1.030) Urine Protein Negative (Negative) Urine Glucose (UA) Negative (Negative) Urine Ketones 1+ H (Negative) Urine Blood Trace-intact H (Negative) Urine Nitrite Negative (Negative) Urine Bilirubin Negative (Negative) Urine Urobilinogen Negative (Negative) Ur Leukocyte Esterase Negative (Negative) Urine RBC 0-4 (0-4) /hpf Urine WBC 0-5 (0-5) /hpf Ur Epithelial Cells 5-10 H (0-5) /lpf Urine Bacteria 1+ H (Negative) Urine Mucus Present A (None Prsent) COVID-19 Eval Order Covid19 at [facility] SARS-CoV-2 (PCR) NEGATIVE (Negative) Administered Medications Discontinued Medications Furosemide (Furosemide 40 Mg/4 Ml Vial) 40 mg IV NOW STA Stop: 04/19/21 21:58 Last Admin: 04/19/21 22:02 Dose: 40 mg Documented by: [id number] Imaging Data Radiologist's Impression: Chest X-Ray 04/19/21 19:01 SINGLE VIEW CHEST CLINICAL HISTORY: Dyspnea. FINDINGS: An AP, portable, upright chest radiograph is compared to study dated 03/27/2018 and correlated with chest CT dated 08/07/2010. The heart is normal for projection. The pulmonary vasculature appears congested. Atelectasis is seen at the lung bases. No airspace consolidation or large pleural effusion is identified. No pneumothorax is seen. The bony thorax is grossly intact. IMPRESSION: Question pulmonary vascular congestion. Clinical correlation will be required. ACT 112: Negative or not required by law. Electronically signed by: Galindo Mejia M.D. 04/19/2021 7:30 PM Discharge Plan Visit Data Chief Complaint: Abdominal Pain Stated Complaint: ABD PAIN ED Provider: Larry Franklin Discharge Problem: Pulmonary edema, Elevated LFTs, Abnormal weight gain, SOB (shortness of breath) Patient Disposition: Admitted As Inpatient Condition: Good Discharge Instructions Interventions: ED Discharge Assessment Last Done: 04/19/21 23:52 Discharge Problem: Pulmonary edema Qualifiers: Chronicity: acute Qualified Code(s): J81.0 - Acute pulmonary edema
[2021-04-19 19:22] LABS: INR 1.1 (0.9-1.1); Partial Thromboplastin Time 26.1 Seconds (21.0-31.0); Prothrombin Time 10.9 Seconds (9.0-12.0)
--- NOTE | 2021-04-19 19:32 | XRay Report ---
SINGLE VIEW CHEST CLINICAL HISTORY: Dyspnea. FINDINGS: An AP, portable, upright chest radiograph is compared to study dated 03/27/2018 and correlate d with chest CT dated 08/07/2010. The heart is normal for projection. The pulmonary vasculature appear s congested. Atelectasis is seen at the lung bases. No airspace consolidation or large pleural effusi on is identified. No pneumothorax is seen. The bony thorax is grossly intact. IMPRESSION: Question pulmonary vascular congestion. Clinical correlation will be required. ACT 112: Negative or not required by law. Electronically signed by: Galindo Mejia M.D. 04/19/2021 7:30 PM
[2021-04-19 19:48] LABS: Alanine Aminotransferase 97 U/L (12-78); Albumin Globulin Ratio 1.3 (0.9-2); Albumin Level 3.5 gm/dl (3.4-5.0); Alkaline Phosphatase 56 U/L (45-117); Aspartate Aminotransferase 58 U/L (15-37); BUN Creatinine Ratio 18.9 (10-20); Bilirubin,Total 0.5 mg/dl (0.2-1); Blood Urea Nitrogen 23 mg/dl (7-18); Calcium 8.9 mg/dl (8.5-10.1); Carbon Dioxide 28 mmol/L (21-32); Chloride 104 mmol/L (98-107); Creatinine Clr Calc Pharmacy 95.5 ml/min; Est GFR (African American) 80.9 ml/min; Est GFR (Non-African American) 69.8 ml/min; Globulin 2.7 gm/dl (2.5-4.0); Glucose 119 mg/dl (70-99); Magnesium 1.9 mg/dl (1.8-2.4); NT Pro B Type Natriuretic Pept 21 pg/ml (0-900); Potassium 4.4 mmol/L (3.5-5.1); Sodium 136 mmol/L (136-145); Total Protein 6.2 gm/dl (6.4-8.2); Troponin I < 0.015 ng/ml (0-0.045)
[2021-04-19 21:55] LABS: Appearance Urine Clear (Clear); Bilirubin Urine Negative (Negative); Blood Urine Trace-intact (Negative); Color Urine Yellow; Glucose Urine UA Negative (Negative); Ketones Urine 1+ (Negative); Leukocyte Esterase Urine Negative (Negative); Nitrite Urine Negative (Negative); Protein Urine Negative (Negative); Specific Gravity Urine >= 1.030 (1.000-1.030); Urobilinogen Urine Negative (Negative)
[2021-04-19] MEDS ORDERED: FUROSEMIDE 40 MG/4 ML VIAL IV STA (21:57)
[2021-04-19 22:03] LABS: Mucus Urine Present (None Prsent); RBC Urine 0-4 /hpf (0-4)
[2021-04-19 22:04] LABS: Bacteria Urine 1+ (Negative); WBC Urine 0-5 /hpf (0-5)
--- NOTE | 2021-04-19 22:44 | History & Physical Report ---
Date of Service April 19, 2021 Assessment & Plan (1) Pulmonary edema: Patient is a medically complex 50 year old male with PMHx Pituitary neoplasm, Bipolar 1, BPH, Growth Hormone Deficiency, Hypothyroidism, Brain surgery for mass x3, Migraines, Pituitary Diabetes insipidus, Pituitary hypogonadism, Secondary Adrenal insufficiency, Seizure Disorder, and Tremor, that presents with multiple chief complaints, but stating that he is concerned about his weight gain the past 2 days. Pulmonary Edema -Suspect the source of patient's initial SOB -Was not found to be hypoxic while in the ED -Apparent diuresis with 40mg IV Lasix, will hold on further diuresis at this time as patient's respiratory status appears improved -Echo in AM -Repeat CXR in AM -Monitor I/O -Daily weights ?Abdominal mass w/ bright red blood per rectum -Rectal exam deferred at this time, so cannot fully rule out hemorrhoids as cause of bright red blood per rectum -Abdominal exam concerning though with questionable masses palpable, ?constipation with large stool burden -Will order for oral contrast CT/Ab as patient is allergic to IV contrast -Hemoccult stools ordered Elevated LFTs -Hepatitis panel -Repeat in AM -CT Ab/Pelv as above 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 -Continue Desmopressin for Diabetes insipidus -Continue Synthroid for Hypothyroidism -Continue somatropin -Continue testosterone gel Hx Adrenal Insufficiency -Will increase patient's home PO to 40mg in AM and 20mg PM for stress dosing BPH -Continue Alfuzosin -Continue Avodart Tremor -Continue Benztropine -Continue Propranolol Bipolar 1 -Continue Cymbalta Hx Seizure -Continue Depakote -PRN Ativan for breakthrough seizure Migraines -Hold home PRN medications at this time Dispo: Med/Surg Telemetry for monitoring of I/O FEN: DM2 diet DVT: SCDs Code: Full (2) Abnormal weight gain: (3) Elevated LFTs: (4) SOB (shortness of breath): (5) Pituitary neoplasm: History of Present Illness Chief Complaint: Weight gain, SOB, Ab pain Primary Care Provider: Larry Amaral MD Patient is a medically complex 50 year old male with PMHx Pituitary neoplasm, Bipolar 1, BPH, Growth Hormone Deficiency, Hypothyroidism, Brain surgery for mass x3, Migraines, Pituitary Diabetes insipidus, Pituitary hypogonadism, Secondary Adrenal insufficiency, Seizure Disorder, and Tremor, that presents with multiple chief complaints, but stating that he is concerned about his weight gain the past 2 days. Patient notes that he has gained 5lbs since yesterday in addition to another 2 lbs since this morning. He notes that he feels somewhat "puffier" and that he has been having ongoing dyspnea on exertion for the past 1 week. His girlfriend who is present in the room also notes that for the past 6 months patient has been having bright red blood per rectum and was supposed to have a colonoscopy, however, he continues to defer it. She states that the past few days his stomach has become more distended and he has been experiencing epigastric pain that feels like "reflux." His last bowel movement he states was yesterday, but that it "wasn't very much." He also notes that 2 weeks ago he was treated for Thrush and has yet to fully regain his voice. Upon arrival to the ED patient was felt to be fluid overloaded with pulmonary edema noted on CXR and given 40mg IV Lasix. Patient notes that he feels his breathing has improved and that he has been urinating non-stop since receiving the lasix. He otherwise denies any fever, chills, chest pain, chest pressure, dizziness, nausea, vomiting, diarrhea. Med Hx: Bipolar 1, BPH, Growth Hormone Deficiency, Hypothyroidism, Brain surgery for mass x3, Migraines, Pituitary Diabetes insipidus, Pituitary hypogonadism, Secondary Adrenal insufficiency, Seizure Disorder, and Surg Hx: Brain tumor removal and surgery x3 (most recent 2016 at [facility]), Renal mass removal, Prostate mass removal Soc Hx: No tobacco or illicit drug use. Quit drinking 3 weeks ago, was drinking 3-4 alcoholic beverages monthly. Allergies Allergy/AdvReac Type Severity Reaction Status Date / Time Iodinated Contrast Media Allergy Severe face/eye Verified 04/19/21 18:59 swelling Quinolones Allergy Intermediate HIVES Verified 04/19/21 18:59 Home Medications Medication Instructions Recorded Confirmed Type naproxen 500 mg tablet 500 mg PO Q12H PRN #60 tab 06/15/19 04/19/21 History multivitamin 1 tab PO QAM 07/12/19 04/19/21 History cyclobenzaprine 10 mg tablet 10 mg PO BID PRN 30 Days #60 tab 09/18/20 04/19/21 Rx propranolol 160 mg capsule,24 160 mg PO HS #30 cap 11/11/20 04/19/21 Rx hr,extended release propranolol 20 mg tablet 20 mg PO DAILY PRN #30 tab 11/17/20 04/19/21 Rx hydrocortisone 10 mg tablet 10 mg PO .COMPLEX #135 tab 12/08/20 04/19/21 Rx lorazepam 0.5 mg tablet 0.5 mg PO .COMPLEX PRN 30 Days #30 01/22/21 04/19/21 Rx tab zolmitriptan 5 mg tablet 5 mg PO .COMPLEX PRN #9 tab 01/27/21 04/19/21 Rx desmopressin 0.2 mg tablet 0.2 mg PO BID #60 tab 02/02/21 04/19/21 Rx Norditropin FlexPro 0.3 mg SQ PM 02/23/21 04/19/21 History celecoxib 200 mg PO QAM 02/23/21 04/19/21 History diclofenac sodium [Voltaren] 4 g TOPICAL QID PRN 02/23/21 04/19/21 History divalproex [Depakote] See Rx Instructions .ROUTE .COMPLEX 02/23/21 04/19/21 History rizatriptan 10 mg PO DIRECTED PRN 02/23/21 04/19/21 History testosterone 1 pump TOP PM 02/23/21 04/19/21 History galcanezumab-gnlm 120 mg/mL 120 mg SQ Q4WK #1 ml 03/12/21 04/19/21 Rx subcutaneous pen injector alfuzosin 10 mg tablet,extended 10 mg PO DAILY #90 tab 04/06/21 04/19/21 Rx release 24 hr dutasteride 0.5 mg capsule 0.5 mg PO DAILY #90 cap 04/06/21 04/19/21 Rx levothyroxine 175 mcg tablet 175 mcg PO QAM #90 tab 04/10/21 04/19/21 Rx Nurtec ODT 75 mg PO DAILY PRN 04/19/21 04/19/21 History benztropine 0.5 mg PO BID 04/19/21 04/19/21 History duloxetine [Cymbalta] 120 mg PO DAILY 04/19/21 04/19/21 History Past Med/Surg History Medical History Bipolar I disorder no meds Bladder mass benign BPH with obstruction/lower urinary tract symptoms Depression no meds Diverticular disease Growth hormone deficiency Hematuria resolved Hypothyroidism Insomnia Kidney stones Lumbar spine pain Migraine without aura and without status migrainosus, not intractable Obstructive sleep apnea of adult cpap Pituitary benign neoplasm 2 tumors Pituitary diabetes insipidus Pituitary hypogonadism Pituitary hypothyroidism Prostate mass benign Secondary adrenal insufficiency Seizure disorder last seizure 2 weeks ago > (non epileptic) lasted approx 30 sec -1min > gets grand mal 3-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 last grand mal Oct 2020 > follows Dr. José Luis Keller Surgical History History of bladder surgery remove mass History of brain surgery x2---2004 @ [facility] [place], 2015 @ [facility]--for brain tumors History of colonoscopy History of esophagogastroduodenoscopy (EGD) History of lithotripsy History of prostate surgery remove mass History of tooth extraction History of wisdom tooth extraction Status post right foot surgery replaced 5th metatarsal--hardware in place Family History Grandmother (Paternal) Family history of diabetes mellitus Aunt Family history of diabetes mellitus Uncle Family history of diabetes mellitus Father Prostate cancer Heart disease Mother Cardiac disorder Grandmother (Maternal) Myocardial infarction Other No family history of adverse response to anesthesia Denies family history of Ovarian cancer Breast cancer Colorectal cancer Social History Smoking Status: Never smoker Second Hand Exposure: No; Hx Alcohol Use: No Hx Substance Use: No Preferred Language: Divehi Communication Ability: Effective Visual Impairment: No Limitations Hearing Ability: Normal Mail Room Required: No Beliefs That Will Affect Care: None marital status: Legally Current Living Situation: Significant Other current occupational status: unemployed Other Information That Helps Us Care for You: No Feels Safe at Home: Yes Safety Concerns: Feels Safe At This Time Childhood Exposure to Second-Hand Smoke: Yes (parents smoked) Seatbelt Use: always Assistive Devices: Glasses Review of Systems Review of Systems: All systems reviewed & are unremarkable except as noted in Subjective Physical Exam Constitutional: well developed and well nourished Eyes: PERRL, conjunctivae normal, anicteric sclerae ENMT: external ear and nose normal, oropharynx normal Neck: trachea midline, no thyromegaly Respiratory: normal respiratory effort, lungs clear to auscultation Cardiovascular: Rate/Rhythm: regular rate and regular rhythm Heart Sounds: no murmur Extremities: + edema (+1) Gastrointestinal (Abdomen): Inspection/Auscultation: + abdomen distended and normal bowel sounds Percussion/Palpation: + abdomen tender (Slight TTP in epigastric region ) Questionable non-tender mass like structures to deep palpation in the RUQ and LUQ near the umbilicus Musculoskeletal: no cyanosis or clubbing, extremities motor strength 5/5 Skin: no rashes, warm and dry Neurologic: patellar DTR's 2+ bilat, sensation intact and PERRL, EOMI, accommodation nl, no face palsy, no dysarthria Psychiatric: A+Ox3, euthymic affect Results & Data Results & Data ([facility]) Vital Signs (Past 12 Hours) Vital Signs Temp Pulse Resp BP Pulse Ox 04/19/21 22:01 82 95 04/19/21 22:00 79 19 155/110 H 95 04/19/21 21:50 80 17 97 04/19/21 21:46 80 16 152/72 H 97 04/19/21 21:44 90 14 04/19/21 20:50 85 32 H 96 04/19/21 20:46 78 16 144/89 H 96 04/19/21 20:40 80 18 96 04/19/21 20:30 79 17 147/79 H 95 04/19/21 20:20 79 16 94 04/19/21 20:15 81 21 137/105 H 96 04/19/21 20:10 79 24 95 04/19/21 20:01 79 15 95 04/19/21 20:00 77 16 150/86 H 95 04/19/21 19:50 76 17 94 04/19/21 19:45 82 16 154/94 H 93 04/19/21 19:40 80 17 95 04/19/21 19:33 80 20 94 04/19/21 19:32 81 20 140/93 94 04/19/21 19:30 79 18 95 04/19/21 19:20 79 16 94 04/19/21 19:15 82 20 137/90 95 04/19/21 19:10 81 17 94 04/19/21 19:01 84 19 96 04/19/21 19:00 85 20 175/92 H 96 04/19/21 18:54 86 21 95 04/19/21 18:52 84 22 153/108 H 95 04/19/21 18:49 95 04/19/21 18:38 36.3 C L 86 22 170/83 H 97 Supervising Physician Co-Signing Physician Notes Attending addendum: I have physically seen this patient, have supervised the medical residents activities, and agree with the H&P unless as otherwise noted. Assessment and Plan: Pulmonary edema- Status post Lasix 40 mg IV in the ED with good response The patient will be admitted to telemetry for serial cardiac enzymes, serial EKG's, cardiac rhythm monitoring and a 2-D echocardiogram with Dopplers. Hold on further diuretics for now Bright red blood per rectum/abnormal LFTs- Hemoccult stools Follow-up imaging CT abdomen and pelvis with oral contrast Consult gastroenterology Panhypopituitarism/status post resection and surgeries of pituitary tumor- Continue all outpatient treatments: Desmopressin, Synthroid, somatotropin, testosterone gel Placed on stress dose oral cortisone dosing by doubling dose to 40 mg in a.m. and 20 mg in p.m. Bipolar 1 disorder- Continue Cymbalta Seizure disorder- Continue Depakote Tremor- Continue benztropine and propranolol Remaining orders and notations as noted Resident Activity Tracking Resident Involvement: Resident Care Provided Care Provided: Adult Hospital Medicine (1) Pulmonary edema Chronicity: acute Qualified Code(s): J81.0 - Acute pulmonary edema
[2021-04-20] MEDS ORDERED: LORazepam 0.5 MG TAB PO PRN ×3 (00:10→00:48)
[2021-04-20] MEDS ORDERED: ONDANSETRON INJ 2 MG/ML 2 ML VIAL IV PRN (00:10)
[2021-04-20] MEDS ORDERED: DIVALPROEX DELAY RELEASE 500 MG TAB PO SCH ×2 (00:10→09:00)
[2021-04-20] MEDS ORDERED: ACETAMINOPHEN 325 MG TAB PO PRN (00:10)
[2021-04-20] MEDS ORDERED: HYDROCORTISONE 10 MG TAB PO SCH ×2 (00:10→09:00)
[2021-04-20] MEDS ORDERED: LORazepam 0.5 MG/1 ML VIAL IV PRN (00:42)
[2021-04-20] MEDS ORDERED: DULoxetine HCL 60 MG CAP PO SCH ×2 (00:45→09:00)
[2021-04-20] MEDS ORDERED: PROPRANOLOL HCL LA 80 MG CAPCR PO ONE (00:45)
[2021-04-20] MEDS: DESMOPRESSIN ACETATE 0.1 MG TAB PO SCH ×2 (01:31→09:15)
[2021-04-20] MEDS: BENZTROPINE MESYLATE 0.5 MG TAB PO SCH ×2 (01:32→09:15)
[2021-04-20 06:29] LABS: Basophils # (auto) 0.03 K/uL (0-0.2); Basophils % (auto) 0.2 %; Eosinophils # (auto) 0.09 K/uL (0-0.5); Eosinophils % (auto) 0.7 %; Hemoglobin 18.1 g/dL (14.0-18.0); Immature Granulocytes # (auto) 0.14 K/uL (0.00-0.02); Lymphocytes # (auto) 2.87 K/uL (1.2-3.4); Lymphocytes % (auto) 21.1 %; Mean Corpuscular Hemoglobin 32.2 pg (25-34); Mean Corpuscular Hgb Conc 34.8 g/dL (32-36); Mean Corpuscular Volume 92.5 fL (80-100); Mean Platelet Volume 8.9 fL (7.4-10.4); Monocytes # (auto) 0.91 K/uL (0.11-0.59); Monocytes % (auto) 6.7 %; Neutrophils # (auto) 9.57 K/uL (1.4-6.5); Neutrophils % (auto) 70.3 %; Platelet Count 136 K/uL (130-400); RDW Coefficient of Variation 14.8 % (11.5-14.5); RDW Standard Deviation 49.7 fL (36.4-46.3); Red Blood Count 5.62 M/uL (4.7-6.1); White Blood Count 13.61 K/uL (4.8-10.8)
[2021-04-20] MEDS ORDERED: LEVOTHYROXINE SODIUM 175 MCG TABLET PO SCH (06:30)
--- NOTE | 2021-04-20 07:01 | CT Scan Report ---
CT abd pelvis oral con only CLINICAL HISTORY: Abdominal pain. Possible intestinal mass. COMPARISON STUDY: CT scan dated 08/10/2010 FINDINGS: The patient was scanned following administration of dilute oral contrast. No intravenous co ntrast was administered. A dose reduction technique was utilized according to the principles of ALARA There is mild dependent atelectasis. No hepatic masses are visualized on this noncontrast study. There is borderline hepatic steatosis and hepatomegaly. No gallbladder abnormalities are visualized. No splenic masses are visualized. No pancreatic masses are visualized. Neither adrenal gland is pathologically enlarged. No renal, ureteral, or bladder calculi are visualized. There are no transition zones indicate bowel obstruction. There is colonic diverticulosis. There is no evidence of acute diverticulitis. The appendix appears n ormal. There is no evidence of abdominal aortic aneurysm. There is a tiny fat-containing umbilical hernia. There is no pathologic adenopathy. There are prostatic calcifications present. There is no free air. There is no ascites. No destructive skeletal lesions are visualized. There is bilateral L5 spondylolysis. IMPRESSION: 1. No evidence of bowel obstruction. No evidence of free air 2. No acute inflammatory changes. Normal appendix. No evidence of acute diverticulitis. 3. Borderline hepatic steatosis and hepatomegaly ACT 112: Negative or not required by law. Electronically signed by: Saud Das M.D. 04/20/2021 6:59 AM
[2021-04-20 07:12] LABS: Est GFR (African American) 68.2 ml/min; Potassium 5.2 mmol/L (3.5-5.1)
[2021-04-20 07:13] LABS: Albumin Level 3.7 gm/dl (3.4-5.0); BUN Creatinine Ratio 16.3 (10-20); Calcium 8.2 mg/dl (8.5-10.1); Creatinine Clr Calc Pharmacy 82.2 ml/min; Est GFR (Non-African American) 58.9 ml/min
[2021-04-20 07:29] LABS: Estimated Average Glucose 120 mg/dl; Hemoglobin A1C 5.8 % (4.5-5.6)
[2021-04-20 07:36] LABS: Albumin Globulin Ratio 1.2 (0.9-2); Bilirubin,Total 0.8 mg/dl (0.2-1); Globulin 3.1 gm/dl (2.5-4.0); Thyroid Stimulating Hormone 0.353 uIu/ml (0.300-4.500); Total Protein 6.8 gm/dl (6.4-8.2)
--- NOTE | 2021-04-20 07:40 | Hospitalist Progress Note ---
Date of Service April 20, 2021 Assessment & Plan (1) Pulmonary edema: Patient is a medically complex 50 year old male with PMHx Pituitary neoplasm, Bipolar 1, BPH, Growth Hormone Deficiency, Hypothyroidism, Brain surgery for mass x3, Migraines, Pituitary Diabetes insipidus, Pituitary hypogonadism, Secondary Adrenal insufficiency, Seizure Disorder, and Tremor, that presents with multiple chief complaints, but stating that he is concerned about his weight gain the past 2 days. Pulmonary Edema Suspect the source of patient's initial SOB Was not found to be hypoxic while in the ED. Apparent diuresis with 40mg IV Lasix, will hold on further diuresis at this time as patient's respiratory status appears improved. No history of cardiac pathology, CHF, cardiac myopathy. Patient reports dry weight is 240 -Echo pending -Monitor I/O -Daily weights Constipation w/ bright red blood per rectum Rectal exam deferred on admission.. Abdominal exam demonstrating firm distended abdomen consistent with constipation. CT scan demonstrating constipation as well. Suspect bright red blood per rectum secondary to hemorrhoids and associated constipation -Hemoccult stools ordered -MiraLAX twice daily scheduled Elevated LFTs -Hepatitis panel pending -CT Ab/Pelv as above -Borderline hepatic steatosis/hepatomegaly recommend follow-up with outpatient GI 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 -Continue Desmopressin for Diabetes insipidus -Continue Synthroid for Hypothyroidism -Continue somatropin -Continue testosterone gel Hx Adrenal Insufficiency -Will increase patient's home PO to 40mg in AM and 20mg PM for stress dosing Hyperkalemia Suspect secondary to relative adrenal insufficiency will repeat BMP at noon today. BPH -Continue Alfuzosin -Continue Avodart Tremor -Continue Benztropine -Continue Propranolol Bipolar 1 -Continue Cymbalta Hx Seizure -Continue Depakote -PRN Ativan for breakthrough seizure Migraines -Hold home PRN medications at this time Dispo: Med/Surg Telemetry for monitoring of I/O FEN: DM2 diet DVT: SCDs Code: Full (2) Abnormal weight gain: (3) Elevated LFTs: (4) SOB (shortness of breath): (5) Pituitary neoplasm: Admission and Anticipated Discharge Date Admission Date: April 19, 2021 Subjective Patient lying in bed this morning in no acute distress. Patient reported doing well overnight with no acute events. Patient reports last bowel movement was 2 days ago, reports voiding well, tolerating his diet and has no acute concerns or complaints. Patient reports his breathing is improved significantly, however still having pain in the center of his chest. Physical Exam Physical Exam: General: No acute distress HEENT: Normocephalic atraumatic Neck: No significant lymphadenopathy, trachea midline, normal to visual inspection Cardiac: Regular rate and rhythm, normal S1, normal S2, I did not appreciated any significant murmurs rubs or gallops, I did not appreciate any significant pedal edema, No calf tenderness, capillary refill is less than 3 seconds Respiratory: Clear to auscultation bilaterally with symmetrical chest rise, I did not appreciate any significant wheezes, rales, rhonchi, no increased work of breathing GI: Normal bowel sounds, soft, nontender in all 4 quadrants, vitamin distended, no rebound or guarding MSK: No sensory or motor changes, moves all extremities without issue, extremities are warm and well-perfused Skin: [place], clean, dry, intact. Neuro: Alert and oriented x4 Psych: Calm, cooperative, logical thought process Results & Data Results & Data ([facility]) Vital Signs (Past 12 Hours) Vital Signs Temp Pulse Pulse Resp BP BP Pulse Ox 04/20/21 07:00 66 04/20/21 04:00 36.4 C L 70 18 131/83 94 04/20/21 03:20 81 04/20/21 00:29 36.8 C 81 18 150/94 H 94 04/19/21 23:46 80 155/130 H 96 04/19/21 23:40 80 17 95 04/19/21 23:33 77 19 96 04/19/21 23:32 80 16 168/107 H 96 04/19/21 23:31 78 15 95 04/19/21 22:16 76 18 95 04/19/21 22:15 77 22 159/105 H 97 04/19/21 22:10 79 16 94 04/19/21 22:01 82 95 04/19/21 22:00 79 19 155/110 H 95 04/19/21 21:50 80 17 97 04/19/21 21:46 80 16 152/72 H 97 04/19/21 21:44 90 14 04/19/21 20:50 85 32 H 96 04/19/21 20:46 78 16 144/89 H 96 04/19/21 20:40 80 18 96 04/19/21 20:30 79 17 147/79 H 95 04/19/21 20:20 79 16 94 04/19/21 20:15 81 21 137/105 H 96 04/19/21 20:10 79 24 95 04/19/21 20:01 79 15 95 04/19/21 20:00 77 16 150/86 H 95 04/19/21 19:50 76 17 94 04/19/21 19:45 82 16 154/94 H 93 04/19/21 19:40 80 17 95 Laboratory Results 04/20/21 04/20/21 04/20/21 Range/Units 07:22 06:15 06:15 WBC (4.8-10.8) K/uL RBC (4.7-6.1) M/uL Hgb (14.0-18.0) g/dL Hct (42-52) % MCV (80-100) fL MCH (25-34) pg MCHC (32-36) g/dL RDW Std Deviation (36.4-46.3) fL RDW Coeff of [place] (11.5-14.5) % Plt Count (130-400) K/uL MPV (7.4-10.4) fL Immature Gran % (Auto) % Neut % (Auto) % Lymph % (Auto) % [place] % (Auto) % Eos % (Auto) % Baso % (Auto) % Neut # (Auto) (1.4-6.5) K/uL Lymph # (Auto) (1.2-3.4) K/uL [place] # (Auto) (0.11-0.59) K/uL Eos # (Auto) (0-0.5) K/uL Baso # (Auto) (0-0.2) K/uL Immature Gran # (Auto) (0.00-0.02) K/uL PT (9.0-12.0) Seconds INR (0.9-1.1) APTT (21.0-31.0) Seconds PTT Ratio Sodium 136 (136-145) mmol/L Potassium 5.2 H D (3.5-5.1) mmol/L Chloride 102 (98-107) mmol/L Carbon Dioxide 31 (21-32) mmol/L Anion Gap 3.0 (3-11) BUN 22 H (7-18) mg/dl Creatinine 1.37 (0.6-1.4) mg/dl Est Cr Clr Drug Dosing 82.2 ml/min Est GFR ( Amer) 68.2 ml/min Est GFR (Non-Af Amer) 58.9 ml/min BUN/Creatinine Ratio 16.3 (10-20) Glucose 96 (70-99) mg/dl POC Glucose 95 (70-99) mg/dl Estimat Average Glucose 120 mg/dl Hemoglobin A1c 5.8 H (4.5-5.6) % Calcium 8.2 L (8.5-10.1) mg/dl Magnesium (1.8-2.4) mg/dl Total Bilirubin 0.8 (0.2-1) mg/dl AST 45 H (15-37) U/L ALT 100 H (12-78) U/L Alkaline Phosphatase 61 (45-117) U/L Troponin I (0-0.045) ng/ml NT-Pro-B Natriuret Pep (0-900) pg/ml Total Protein 6.8 (6.4-8.2) gm/dl Albumin 3.7 (3.4-5.0) gm/dl Globulin 3.1 (2.5-4.0) gm/dl Albumin/Globulin Ratio 1.2 (0.9-2) TSH 0.353 (0.300-4.500) uIu/ml Specimen Hemolysis Urine Color Urine Appearance (Clear) Urine pH (4.5-7.5) Ur Specific [place] (1.000-1.030) Urine Protein (Negative) Urine Glucose (UA) (Negative) Urine Ketones (Negative) Urine Blood (Negative) Urine Nitrite (Negative) Urine Bilirubin (Negative) Urine Urobilinogen (Negative) Ur Leukocyte Esterase (Negative) Urine RBC (0-4) /hpf Urine WBC (0-5) /hpf Ur Epithelial Cells (0-5) /lpf Urine Bacteria (Negative) Urine Mucus (None Prsent) COVID-19 Eval Order SARS-CoV-2 (PCR) (Negative) Hepatitis A IgM Ab Hep Bs Antigen Hep B Core IgM Ab Hepatitis C Antibody 04/20/21 04/20/21 04/19/21 Range/Units 06:15 06:15 22:14 WBC 13.61 H (4.8-10.8) K/uL RBC 5.62 (4.7-6.1) M/uL Hgb 18.1 H (14.0-18.0) g/dL Hct 52.0 (42-52) % MCV 92.5 (80-100) fL MCH 32.2 (25-34) pg MCHC 34.8 (32-36) g/dL RDW Std Deviation 49.7 H (36.4-46.3) fL RDW Coeff of [place] 14.8 H (11.5-14.5) % Plt Count 136 (130-400) K/uL MPV 8.9 (7.4-10.4) fL Immature Gran % (Auto) 1.0 % Neut % (Auto) 70.3 % Lymph % (Auto) 21.1 % [place] % (Auto) 6.7 % Eos % (Auto) 0.7 % Baso % (Auto) 0.2 % Neut # (Auto) 9.57 H (1.4-6.5) K/uL Lymph # (Auto) 2.87 (1.2-3.4) K/uL [place] # (Auto) 0.91 H (0.11-0.59) K/uL Eos # (Auto) 0.09 (0-0.5) K/uL Baso # (Auto) 0.03 (0-0.2) K/uL Immature Gran # (Auto) 0.14 H (0.00-0.02) K/uL PT (9.0-12.0) Seconds INR (0.9-1.1) APTT (21.0-31.0) Seconds PTT Ratio Sodium (136-145) mmol/L Potassium (3.5-5.1) mmol/L Chloride (98-107) mmol/L Carbon Dioxide (21-32) mmol/L Anion Gap (3-11) BUN (7-18) mg/dl Creatinine (0.6-1.4) mg/dl Est Cr Clr Drug Dosing ml/min Est GFR ( Amer) ml/min Est GFR (Non-Af Amer) ml/min BUN/Creatinine Ratio (10-20) Glucose (70-99) mg/dl POC Glucose (70-99) mg/dl Estimat Average Glucose mg/dl Hemoglobin A1c (4.5-5.6) % Calcium (8.5-10.1) mg/dl Magnesium (1.8-2.4) mg/dl Total Bilirubin (0.2-1) mg/dl AST (15-37) U/L ALT (12-78) U/L Alkaline Phosphatase (45-117) U/L Troponin I (0-0.045) ng/ml NT-Pro-B Natriuret Pep (0-900) pg/ml Total Protein (6.4-8.2) gm/dl Albumin (3.4-5.0) gm/dl Globulin (2.5-4.0) gm/dl Albumin/Globulin Ratio (0.9-2) TSH (0.300-4.500) uIu/ml Specimen Hemolysis Urine Color Urine Appearance (Clear) Urine pH (4.5-7.5) Ur Specific [place] (1.000-1.030) Urine Protein (Negative) Urine Glucose (UA) (Negative) Urine Ketones (Negative) Urine Blood (Negative) Urine Nitrite (Negative) Urine Bilirubin (Negative) Urine Urobilinogen (Negative) Ur Leukocyte Esterase (Negative) Urine RBC (0-4) /hpf Urine WBC (0-5) /hpf Ur Epithelial Cells (0-5) /lpf Urine Bacteria (Negative) Urine Mucus (None Prsent) COVID-19 Eval Order SARS-CoV-2 (PCR) NEGATIVE (Negative) Hepatitis A IgM Ab Pending Hep Bs Antigen Hep B Core IgM Ab Pending Hepatitis C Antibody 04/19/21 04/19/21 04/19/21 Range/Units 22:14 21:43 18:55 WBC (4.8-10.8) K/uL RBC (4.7-6.1) M/uL Hgb (14.0-18.0) g/dL Hct (42-52) % MCV (80-100) fL MCH (25-34) pg MCHC (32-36) g/dL RDW Std Deviation (36.4-46.3) fL RDW Coeff of [place] (11.5-14.5) % Plt Count (130-400) K/uL MPV (7.4-10.4) fL Immature Gran % (Auto) % Neut % (Auto) % Lymph % (Auto) % [place] % (Auto) % Eos % (Auto) % Baso % (Auto) % Neut # (Auto) (1.4-6.5) K/uL Lymph # (Auto) (1.2-3.4) K/uL [place] # (Auto) (0.11-0.59) K/uL Eos # (Auto) (0-0.5) K/uL Baso # (Auto) (0-0.2) K/uL Immature Gran # (Auto) (0.00-0.02) K/uL PT (9.0-12.0) Seconds INR (0.9-1.1) APTT (21.0-31.0) Seconds PTT Ratio Sodium (136-145) mmol/L Potassium (3.5-5.1) mmol/L Chloride (98-107) mmol/L Carbon Dioxide (21-32) mmol/L Anion Gap (3-11) BUN (7-18) mg/dl Creatinine (0.6-1.4) mg/dl Est Cr Clr Drug Dosing ml/min Est GFR ( Amer) ml/min Est GFR (Non-Af Amer) ml/min BUN/Creatinine Ratio (10-20) Glucose (70-99) mg/dl POC Glucose (70-99) mg/dl Estimat Average Glucose mg/dl Hemoglobin A1c (4.5-5.6) % Calcium (8.5-10.1) mg/dl Magnesium (1.8-2.4) mg/dl Total Bilirubin (0.2-1) mg/dl AST (15-37) U/L ALT (12-78) U/L Alkaline Phosphatase (45-117) U/L Troponin I (0-0.045) ng/ml NT-Pro-B Natriuret Pep (0-900) pg/ml Total Protein (6.4-8.2) gm/dl Albumin (3.4-5.0) gm/dl Globulin (2.5-4.0) gm/dl Albumin/Globulin Ratio (0.9-2) TSH (0.300-4.500) uIu/ml Specimen Hemolysis Urine Color Yellow Urine Appearance Clear (Clear) Urine pH 6.0 (4.5-7.5) Ur Specific [place] >= 1.030 (1.000-1.030) Urine Protein Negative (Negative) Urine Glucose (UA) Negative (Negative) Urine Ketones 1+ H (Negative) Urine Blood Trace-intact H (Negative) Urine Nitrite Negative (Negative) Urine Bilirubin Negative (Negative) Urine Urobilinogen Negative (Negative) Ur Leukocyte Esterase Negative (Negative) Urine RBC 0-4 (0-4) /hpf Urine WBC 0-5 (0-5) /hpf Ur Epithelial Cells 5-10 H (0-5) /lpf Urine Bacteria 1+ H (Negative) Urine Mucus Present A (None Prsent) COVID-19 Eval Order Covid19 at [facility] SARS-CoV-2 (PCR) (Negative) Hepatitis A IgM Ab Hep Bs Antigen Pending Hep B Core IgM Ab Hepatitis C Antibody Pending 04/19/21 04/19/21 04/19/21 Range/Units 18:55 18:55 18:55 WBC 11.78 H (4.8-10.8) K/uL RBC 5.23 (4.7-6.1) M/uL Hgb 17.1 (14.0-18.0) g/dL Hct 48.2 (42-52) % MCV 92.2 (80-100) fL MCH 32.7 (25-34) pg MCHC 35.5 (32-36) g/dL RDW Std Deviation 49.1 H (36.4-46.3) fL RDW Coeff of [place] 14.6 H (11.5-14.5) % Plt Count 131 (130-400) K/uL MPV 8.7 (7.4-10.4) fL Immature Gran % (Auto) 1.2 % Neut % (Auto) 66.5 % Lymph % (Auto) 24.4 % [place] % (Auto) 6.9 % Eos % (Auto) 0.8 % Baso % (Auto) 0.2 % Neut # (Auto) 7.83 H (1.4-6.5) K/uL Lymph # (Auto) 2.88 (1.2-3.4) K/uL [place] # (Auto) 0.81 H (0.11-0.59) K/uL Eos # (Auto) 0.10 (0-0.5) K/uL Baso # (Auto) 0.02 (0-0.2) K/uL Immature Gran # (Auto) 0.14 H (0.00-0.02) K/uL PT 10.9 (9.0-12.0) Seconds INR 1.1 (0.9-1.1) APTT 26.1 (21.0-31.0) Seconds PTT Ratio 1.0 Sodium 136 (136-145) mmol/L Potassium 4.4 (3.5-5.1) mmol/L Chloride 104 (98-107) mmol/L Carbon Dioxide 28 (21-32) mmol/L Anion Gap 5.0 (3-11) BUN 23 H (7-18) mg/dl Creatinine 1.19 (0.6-1.4) mg/dl Est Cr Clr Drug Dosing 95.5 ml/min Est GFR ( Amer) 80.9 ml/min Est GFR (Non-Af Amer) 69.8 ml/min BUN/Creatinine Ratio 18.9 (10-20) Glucose 119 H (70-99) mg/dl POC Glucose (70-99) mg/dl Estimat Average Glucose mg/dl Hemoglobin A1c (4.5-5.6) % Calcium 8.9 (8.5-10.1) mg/dl Magnesium 1.9 (1.8-2.4) mg/dl Total Bilirubin 0.5 (0.2-1) mg/dl AST 58 H (15-37) U/L ALT 97 H (12-78) U/L Alkaline Phosphatase 56 (45-117) U/L Troponin I < 0.015 (0-0.045) ng/ml NT-Pro-B Natriuret Pep 21 (0-900) pg/ml Total Protein 6.2 L (6.4-8.2) gm/dl Albumin 3.5 (3.4-5.0) gm/dl Globulin 2.7 (2.5-4.0) gm/dl Albumin/Globulin Ratio 1.3 (0.9-2) TSH (0.300-4.500) uIu/ml Specimen Hemolysis Urine Color Urine Appearance (Clear) Urine pH (4.5-7.5) Ur Specific [place] (1.000-1.030) Urine Protein (Negative) Urine Glucose (UA) (Negative) Urine Ketones (Negative) Urine Blood (Negative) Urine Nitrite (Negative) Urine Bilirubin (Negative) Urine Urobilinogen (Negative) Ur Leukocyte Esterase (Negative) Urine RBC (0-4) /hpf Urine WBC (0-5) /hpf Ur Epithelial Cells (0-5) /lpf Urine Bacteria (Negative) Urine Mucus (None Prsent) COVID-19 Eval Order SARS-CoV-2 (PCR) (Negative) Hepatitis A IgM Ab Hep Bs Antigen Hep B Core IgM Ab Hepatitis C Antibody Medications Administered Current Inpatient Medications Acetaminophen (Acetaminophen 325 Mg Tab) 650 mg PO Q4H PRN PRN Reason: Pain or Fever Stop: 05/20/21 00:09 Alfuzosin HCl (Alfuzosin Hcl 10 Mg Tab) 10 mg PO DAILY [facility] Stop: 05/20/21 08:59 Benztropine Mesylate (Benztropine Mesylate 0.5 Mg Tab) 0.5 mg PO BID [facility] Stop: 05/20/21 00:09 Last Admin: 04/20/21 01:32 Dose: 0.5 mg Documented by: Desmopressin Acetate (Desmopressin Acetate 0.1 Mg Tab) 0.2 mg PO BID [facility] Stop: 05/20/21 00:09 Last Admin: 04/20/21 01:31 Dose: 0.2 mg Documented by: Divalproex Sodium (Divalproex Delay Release 500 Mg Tab) 1,500 mg PO [facility] Stop: 05/20/21 00:09 Last Admin: 04/20/21 01:33 Dose: 1,500 mg Documented by: Divalproex Sodium (Divalproex Delay Release 500 Mg Tab) 1,000 mg PO QAM [facility] Stop: 05/20/21 08:59 Duloxetine HCl (Duloxetine Hcl 60 Mg Cap) 120 mg PO [facility] Stop: 05/20/21 00:44 Last Admin: 04/20/21 01:33 Dose: 120 mg Documented by: Hydrocortisone (Hydrocortisone 10 Mg Tab) 20 mg PO HS [facility] Stop: 05/20/21 00:09 Last Admin: 04/20/21 01:30 Dose: 20 mg Documented by: Hydrocortisone (Hydrocortisone 10 Mg Tab) 40 mg PO QAM [facility] Stop: 05/20/21 08:59 Lorazepam (Ativan) 0.5 mg in 1 mls @ 0.5 mls/min IV UD PRN PRN Reason: Seizures Stop: 05/20/21 00:41 Levothyroxine Sodium (Levothyroxine Sodium 175 Mcg Tablet) 175 mcg PO DAILYBB [facility] Stop: 05/20/21 06:29 Last Admin: 04/20/21 06:10 Dose: 175 mcg Documented by: Lorazepam (Lorazepam 0.5 Mg Tab) 0.5 mg PO BID PRN PRN Reason: Anxiety Stop: 05/20/21 00:43 Last Admin: 04/20/21 01:34 Dose: 0.5 mg Documented by: Miscellaneous (Avodart~Order Awaiting Action) 1 ea N/A QS [facility] Stop: 05/20/21 07:59 Miscellaneous (Somatropin~Order Awaiting Action) 1 ea N/A QS [facility] Stop: 05/20/21 07:59 Miscellaneous (Testosterone~Order Awaiting Action) 1 ea N/A QS [facility] Stop: 05/20/21 07:59 Ondansetron HCl (Ondansetron Inj 2 Mg/Ml 2 Ml Vial) 4 mg IV Q6H PRN PRN Reason: Nausea Stop: 05/20/21 00:09 Propranolol HCl (Propranolol Hcl La 80 Mg Capcr) 160 mg PO HS [facility] Stop: 05/20/21 20:59 (1) Pulmonary edema Chronicity: acute Qualified Code(s): J81.0 - Acute pulmonary edema
[2021-04-20] MEDS ORDERED: ALFUZOSIN HCL 10 MG TAB PO SCH (09:00)
[2021-04-20] MEDS ORDERED: POLYETHYLENE (MIRALAX) 17 GM PACK PO ONE (09:13)
[2021-04-20] MEDS: AVODART~ORDER AWAITING ACTION SCH ×2 (09:15→16:23)
[2021-04-20] MEDS: TESTOSTERONE~ORDER AWAITING ACTION SCH ×2 (09:16→16:23)
--- NOTE | 2021-04-20 10:06 | Electrocardiogram Report ---
Test Reason : Blood Pressure : / mmHG Vent. Rate : 083 BPM Atrial Rate : 083 BPM P-R Int : 136 ms QRS Dur : 084 ms QT Int : 340 ms P-R-T Axes : 062 014 046 degrees QTc Int : 399 ms Normal sinus rhythm Normal ECG When compared with ECG of 01-MAR-2008 11:43, No significant change was found Confirmed by Esequiel Mi ([id number] on 04/20/2021 10:05:40 AM Referred By: Larry Franklin Confirmed By:Esequiel Mi
[2021-04-20 10:35] LABS: Hepatitis B Surf Ag Rflx Conf Neg (Neg)
[2021-04-20 11:03] LABS: Hepatitis C IgG 13Yrs+Old_Rflx Neg (Neg)
[2021-04-20] MEDS ORDERED: SUMAtriptan succinate 25 MG TAB PO PRN (12:46)
[2021-04-20] MEDS ORDERED: SUMAtriptan succinate 100 MG TAB PO PRN (13:34)
[2021-04-20 14:33] LABS: BUN Creatinine Ratio 17.6 (10-20); Calcium 8.5 mg/dl (8.5-10.1); Creatinine Clr Calc Pharmacy 76.1 ml/min; Est GFR (African American) 62.2 ml/min; Est GFR (Non-African American) 53.6 ml/min; Potassium 4.5 mmol/L (3.5-5.1)
--- NOTE | 2021-04-20 16:09 | Discharge Summary ---
Date of Service April 20, 2021 Admission HPI Per Admitting Provider Patient is a medically complex 50 year old male with PMHx Pituitary neoplasm, Bipolar 1, BPH, Growth Hormone Deficiency, Hypothyroidism, Brain surgery for mass x3, Migraines, Pituitary Diabetes insipidus, Pituitary hypogonadism, Secondary Adrenal insufficiency, Seizure Disorder, and Tremor, that presents with multiple chief complaints, but stating that he is concerned about his weight gain the past 2 days. Patient notes that he has gained 5lbs since yesterday in addition to another 2 lbs since this morning. He notes that he feels somewhat "puffier" and that he has been having ongoing dyspnea on exertion for the past 1 week. His girlfriend who is present in the room also notes that for the past 6 months patient has been having bright red blood per rectum and was supposed to have a colonoscopy, however, he continues to defer it. She states that the past few days his stomach has become more distended and he has been experiencing epigastric pain that feels like "reflux." His last bowel movement he states was yesterday, but that it "wasn't very much." He also notes that 2 weeks ago he was treated for Thrush and has yet to fully regain his voice. Upon arrival to the ED patient was felt to be fluid overloaded with pulmonary edema noted on CXR and given 40mg IV Lasix. Patient notes that he feels his breathing has improved and that he has been urinating non-stop since receiving the lasix. He otherwise denies any fever, chills, chest pain, chest pressure, dizziness, nausea, vomiting, diarrhea. Med Hx: Bipolar 1, BPH, Growth Hormone Deficiency, Hypothyroidism, Brain surgery for mass x3, Migraines, Pituitary Diabetes insipidus, Pituitary hypogonadism, Secondary Adrenal insufficiency, Seizure Disorder, and Surg Hx: Brain tumor removal and surgery x3 (most recent 2017 at [facility]), Renal mass removal, Prostate mass removal Soc Hx: No tobacco or illicit drug use. Quit drinking 3 weeks ago, was drinking 3-4 alcoholic beverages monthly. Admission Exam Per Admitting Provider Constitutional: well developed and well nourished Eyes: PERRL, conjunctivae normal, anicteric sclerae ENMT: external ear and nose normal, oropharynx normal Neck: trachea midline, no thyromegaly Respiratory: normal respiratory effort, lungs clear to auscultation Cardiovascular: Rate/Rhythm: regular rate and regular rhythm Heart Sounds: no murmur Extremities: + edema (+1) Gastrointestinal (Abdomen): Inspection/Auscultation: + abdomen distended and normal bowel sounds Percussion/Palpation: + abdomen tender (Slight TTP in epigastric region ) Questionable non-tender mass like structures to deep palpation in the RUQ and LUQ near the umbilicus Musculoskeletal: no cyanosis or clubbing, extremities motor strength 5/5 Skin: no rashes, warm and dry Neurologic: patellar DTR's 2+ bilat, sensation intact and PERRL, EOMI, accommodation nl, no face palsy, no dysarthria Psychiatric: A+Ox3, euthymic affect Principal Diagnosis Constipation with bright red blood per rectum, shortness of breath secondary to pulmonary edema Discharge Data Allergies Allergy/AdvReac Type Severity Reaction Status Date / Time Iodinated Contrast Media Allergy Severe face/eye Verified 04/19/21 18:59 swelling Quinolones Allergy Intermediate HIVES Verified 04/19/21 18:59 Consultations 04/19/21 22:04 ED Decision to Admit Stat Ordered Studies 04/19/21 22:43 CT abd pelvis oral con only Urgent Hospital Course (1) Pulmonary edema: Patient is a medically complex 50 year old male with PMHx Pituitary neoplasm, Bipolar 1, BPH, Growth Hormone Deficiency, Hypothyroidism, Brain surgery for mass x3, Migraines, Pituitary Diabetes insipidus, Pituitary hypogonadism, Secondary Adrenal insufficiency, Seizure Disorder, and Tremor, that presents with multiple chief complaints, but stating that he is concerned about his weight gain the past 2 days. Possible Acute diastolic chf/Pulmonary Edema Suspect the source of patient's initial SOB Was not found to be hypoxic while in the ED. Apparent diuresis with 40mg IV Lasix, will hold on further diuresis at this time as patient's respiratory status appears improved. No history of cardiac pathology, CHF, cardiac myopathy. Patient reports dry weight is 240. Patient's breathing is back at baseline, and he is currently asymptomatic. Suspect the pulmonary edema was secondary to obstructive sleep apnea. Recommend patient wear his BiPAP every night as instructed. -Echo demonstrates normal LV and RV function EF 55 to 60%, moderate concentric LV hypertrophy mild MR Constipation w/ bright red blood per rectum Rectal exam deferred on admission.. Abdominal exam demonstrating firm distended abdomen consistent with constipation. CT scan demonstrating constipation as well. Suspect bright red blood per rectum secondary to hemorrhoids and associated constipation. Recommend outpatient follow-up with a GI history is practical. Instructed the patient on concerning signs or symptoms and to return for follow-up should he experience any of these Elevated LFTs -Hepatitis panel pending recommend follow-up with GI -Borderline hepatic steatosis/hepatomegaly recommend follow-up with outpatient GI 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 -Continued Desmopressin for Diabetes insipidus -Continued Synthroid for Hypothyroidism -Continued somatropin -Continued testosterone gel Hx Adrenal Insufficiency -Resume normal dosing on discharge Hyperkalemia Suspect secondary to relative adrenal insufficiency will repeat BMP demonstrated potassium within normal limits BPH -Continued Alfuzosin -Continued Avodart Tremor -Continued Benztropine -Continued Propranolol Bipolar 1 -Continued Cymbalta Hx Seizure -Continued Depakote -PRN Ativan for breakthrough seizure Migraines -Resume as needed medications (2) Abnormal weight gain: (3) Elevated LFTs: (4) SOB (shortness of breath): (5) Pituitary neoplasm: Total Time Total Time Spent Total Time Spent (In Minutes): 30 Discharge Plan Discharge Items Patient Disposition: Home - Self-Care Reason For Visit: WT GAIN, ABD PAIN, CHEST PAIN, SOB Discharge Diagnosis: Constipation with bright red blood per rectum, shortness of breath secondary to pulmonary edema Condition on Discharge: Good Activity: Resume your previous activity Non-emergency contact: Primary Care Provider Call non-emergency contact if: you have any medication questions, your pain is not controlled and your temperature is above 101.5 Follow-up/Referrals: Pro,Larry Crisostomo MD [Primary Care Provider] - Diet: Carb Consistent or DM2 Addtl Attending Provider Instructions: Care instructions: You were admitted to [facility] for treatment of shortness of breath thought to be secondary to pulmonary edema. After ruling out numerous complex etiologies we believe your shortness of breath and pulmonary edema was secondary to noncompliance with your BiPAP. We recommend you wear your BiPAP every night as instructed. Not wearing your BiPAP can contribute to developing the symptoms associated with chronic CORINA obstructive sleep apnea. Bright red blood per rectum: As discussed we think that your rectal bleeding is likely secondary to hemorrhoids. We monitored your hemoglobin while hospitalized and it was stable around 18. We suspect your hemoglobin is elevated to the obstructive sleep apnea that was discussed above. We suggest you follow-up with your primary care provider to further discuss this. Regarding the bright red blood per rectum, we discussed the warning signs, including dizziness while standing, headache, pale color, nailbeds being pale, should you experience any of these symptoms we recommend you return for follow- up otherwise we recommend that you follow-up with a seat mender as soon as practical. A discharge summary will be sent to your primary care physician to ensure continuity of care. Please bring this discharge summary with you to your next office appointment so that your provider can review it at that time. Follow-up appointments: - Keep all your follow-up appointments as already scheduled. If you cannot make an appointment, notify your provider. - Please call to request a follow-up appointment with your primary care physician within one week of discharge. Please let us know if you are unable to obtain an appointment Medications: - Your medication list has been reviewed and reconciled upon discharge to ensure accuracy and continuity of care. - You are provided with a list of all your current medications at this time. Please review this list closely and make note of any changes. - Please take all of your medications exactly as prescribed. - Tell your primary care provider if you cannot afford your medications. - Call your primary care provider if you are having any side effects or any other problems. - Call your primary care provider before taking any over the counter medications or supplements, including herbals and vitamins, because some of these may interact with your current medications and/or make your symptoms worse. Symptoms: Please call your primary care provider for symptoms including, but not limited to: fevers (temperatures greater than 100.4), chills, intractable nausea or vomiting, diarrhea, rash, shortness of breath, bleeding, pain, or if you experience any worsening of the symptoms that brought you to the hospital. For EMERGENCY and VERY SERIOUS health-related issues, such as chest pain, shortness of breath, or sudden onset of the symptoms that brought you to the hospital, you may need to call 911 or go directly to the Emergency Room It has been our privilege to take care of you during your hospital stay. And Above All Else Feel Better! Best Wishes, Gonzales Michele MD PGY2 Resident, Family & Community Medicine [facility] [place] [id number] [place] [address], [address] MC: [address], [place] [address] Pending Studies at Discharge: No Stand-Alone Forms: My [facility] [employer], Smoking Cessation Medications and DC Order Prescriptions: Continued naproxen 500 mg tablet 500 mg PO Q12H PRN (Reason: Pain) Qty: 60 RF: 0 propranolol 20 mg tablet 20 mg PO DAILY PRN (Reason: tremor) Qty: 30 RF: 5 hydrocortisone 10 mg tablet 10 mg PO .COMPLEX Qty: 135 RF: 5 lorazepam 0.5 mg tablet 0.5 mg PO .COMPLEX PRN (Reason: seizures) 30 Days Qty: 30 RF: 0 zolmitriptan [Zomig] 5 mg tablet 5 mg PO .COMPLEX PRN (Reason: migraine headache) Qty: 9 RF: 5 desmopressin 0.2 mg tablet 0.2 mg PO BID Qty: 60 RF: 5 Emgality Pen 120 mg/mL pen injector 120 mg SQ Q4WK Qty: 1 RF: 5 levothyroxine 175 mcg tablet 175 mcg PO QAM Qty: 90 RF: 1 Hold Instructions: try armour propranolol 160 mg capsule,extended release 24 hr 160 mg PO HS Qty: 30 RF: 5 cyclobenzaprine 10 mg tablet 10 mg PO BID PRN (Reason: muscle spasm) 30 Days Qty: 60 RF: 1 alfuzosin 10 mg tablet extended release 24 hr 10 mg PO DAILY Qty: 90 RF: 3 dutasteride [Avodart] 0.5 mg capsule 0.5 mg PO DAILY Qty: 90 RF: 3 multivitamin Tablet 1 tab PO QAM RF: 0 rizatriptan 10 mg Tablet,Disintegrating 10 mg PO DIRECTED PRN (Reason: Migraine Headache) RF: 0 celecoxib 200 mg capsule 200 mg PO QAM RF: 0 divalproex [Depakote] 500 mg tablet,delayed release (DR/EC) See Rx Instructions .ROUTE .COMPLEX RF: 0 Norditropin FlexPro 5 mg/1.5 mL (3.3 mg/mL) pen injector 0.3 mg SQ PM RF: 0 diclofenac sodium [Voltaren] 1 % gel 4 g topical QID PRN (Reason: Pain) RF: 0 testosterone 20.25 mg/1.25 gram (1.62 %) gel in metered-dose pump 1 pump TOP PM RF: 0 duloxetine [Cymbalta] 60 mg capsule,delayed release(DR/EC) 120 mg PO DAILY RF: 0 benztropine 0.5 mg tablet 0.5 mg PO BID RF: 0 Nurtec ODT 75 mg tablet,disintegrating 75 mg PO DAILY PRN (Reason: Migraine Headache) RF: 0 Discharge Orders: Discharge Order (Routine); Ordered 04/20/21 Ordered By: Gonzales Michele Admission Data Admit Date/Time: 04/19/21 23:02 Attending Provider: Judith Feldman Admit Provider: Talha Alexander Primary Care Provider: Larry Amaral Other Providers: Krishna Ronquillo Other Interventions: Discharge Summary Assessment (RN) Last Done: 04/20/21 16:30 Supervising Physician Co-Signing Physician Notes Resident Physician Supervision Note: I independently interviewed and examined the patient and verified the tinoco history and physical, reviewed labs and image studies and agree with resident Dr. Michele findings and care plan. Resident Activity Tracking Resident Involvement: Resident Care Provided Care Provided: Adult Hospital Medicine
[2021-04-20] MEDS ORDERED: POLYETHYLENE (MIRALAX) 17 GM PACK PO SCH (21:00)
[2021-04-20] MEDS ORDERED: PROPRANOLOL HCL LA 80 MG CAPCR PO SCH (21:00)
--- NOTE | 2021-04-20 22:42 | Billing Data ---
Date of Service April 20, 2021 Coding Level of Care Code 05017 OBS Care - Level 3
[2021-04-22 14:01] LABS: Hepatitis A Antibody IgM NON-REACTIVE (NON-REACTIVE); Hepatitis B Core Antibody IgM NON-REACTIVE (NON-REACTIVE)
== END 2021-04-20 17:09 | disposition home or self-care (01) ==
LOC: ED 18:29 → 2N 18:29 → SUATTDRO 23:02 → 2N 23:52

== ENCOUNTER 2021-08-11 10:42 | Observation (INO) ==
[2021-08-11 11:42] LABS: Basophils # (auto) 0.02 K/uL (0-0.2); Basophils % (auto) 0.2 %; Eosinophils # (auto) 0.06 K/uL (0-0.5); Eosinophils % (auto) 0.6 %; Hematocrit (blood only) 45.7 % (42-52); Hemoglobin 15.9 g/dL (14.0-18.0); Immature Granulocytes # (auto) 0.13 K/uL (0.00-0.02); Immature Granulocytes % (auto) 1.3 %; Lymphocytes # (auto) 2.17 K/uL (1.2-3.4); Mean Corpuscular Hemoglobin 33.5 pg (25-34); Mean Corpuscular Hgb Conc 34.8 g/dL (32-36); Mean Corpuscular Volume 96.4 fL (80-100); Mean Platelet Volume 8.7 fL (7.4-10.4); Monocytes # (auto) 0.86 K/uL (0.11-0.59); Monocytes % (auto) 8.7 %; Neutrophils # (auto) 6.64 K/uL (1.4-6.5); Neutrophils % (auto) 67.2 %; Platelet Count 152 K/uL (130-400); RDW Coefficient of Variation 13.5 % (11.5-14.5); RDW Standard Deviation 47.5 fL (36.4-46.3); Red Blood Count 4.74 M/uL (4.7-6.1); White Blood Count 9.88 K/uL (4.8-10.8)
--- NOTE | 2021-08-11 11:48 | XRay Report ---
XR chest 1V portable HISTORY: 51 years-old Male Chest Pain acute atypical chest pain COMPARISON: Chest radiograph and chest CT 07/10/2021 TECHNIQUE: Portable AP view of the chest FINDINGS: Cardiac silhouette is upper limits of normal in size. Prominence of the interstitium is likely second katie to patient body habitus. No pneumothorax, pleural effusion, airspace consolidation or overt pulmo nary edema. Mild blunting of the costophrenic angles, likely from atelectasis. Healed chronic left mi d clavicular fracture deformity. No acute fracture. IMPRESSION: No acute process. ACT 112: Negative or not required by law. The above report was generated using voice recognition software. It may contain grammatical, syntax o r spelling errors. Electronically signed by: Bean Tolentino M.D. 08/11/2021 11:47 AM
[2021-08-11 11:53] LABS: Partial Thromboplastin Time 25.7 Seconds (21.0-31.0); Prothrombin Time 10.5 Seconds (9.0-12.0)
[2021-08-11 12:01] LABS: Alanine Aminotransferase 96 U/L (12-78); Albumin Level 3.7 gm/dl (3.4-5.0); Aspartate Aminotransferase 31 U/L (15-37); BUN Creatinine Ratio 13.3 (10-20); Blood Urea Nitrogen 15 mg/dl (7-18); Calcium 9.3 mg/dl (8.5-10.1); Carbon Dioxide 27 mmol/L (21-32); Chloride 103 mmol/L (98-107); Creatinine Clr Calc Pharmacy 103.7 ml/min; Est GFR (African American) 87.4 ml/min; Est GFR (Non-African American) 75.4 ml/min; Glucose 118 mg/dl (70-99); Potassium 3.9 mmol/L (3.5-5.1); Sodium 138 mmol/L (136-145)
--- NOTE | 2021-08-11 12:04 | Emergency Department Note ---
Impression & Plan Atypical chest pain, Fluid retention ED Provider Note NAME: LINSEY VIRAMONTES JR AGE: 51 SEX: M : 1970 ARRIVES VIA: Ambulance INFORMANT: Patient, ED PROVIDER(S): Curtis Britton MD Chief Complaint: Chest pain, shortness of breath HPI: Patient does present with complaints of chest pain and shortness of breath. Patient states that chest pain began last evening is central with radiation to the back with exertion. Patient did receive nitro in route without much improvement in symptoms. The patient states that he is not supposed to take aspirin based on his other medications. Patient has any fevers or chills. The patient is not vaccinated for Covid. The patient denies infectious symptoms. The patient does chew snuff but denies any smoking. Patient does not use alcohol. Patient dates he has been compliant with his medications. The patient is concerned as he is put on approximately 8 pounds in 3 days. Patient did call his cardiology office yesterday and the patient was told to take an extra dose of Lasix so he took 120 total milligrams yesterday. Patient has had increasing lower extremity edema. The patient has had some nausea but no vomiting. Patient states that his pain is worse with exertion. The patient denies any nausea or vomiting or sweaty episodes. The patient's pain does have associated right upper extremity numbness. Was seen in outpatient clinic by Dr. Phillips on June 26. Patient was stable from cardiac standpoint. Patient does have a history of LVH mitral regurgitation. Patient most recently had echocardiogram that was completed on April 20. Patient had normal LV systolic function without any wall motion abnormalities and had an ejection fraction of 55 to 60%. ROS: See HPI for pertinent positives and negatives. A total of 10 systems were reviewed and otherwise negative. Past medical history: See below Surgical history: See below Social history: See below Physical Exam: GENERAL: NAD, wearing a mask, non-toxic. EYE EXAM: Normal conjunctiva. PERRL, no anisocoria and EOM's grossly intact w/o pain. NECK: Supple, no nuchal rigidity, no adenopathy, non-tender. No signs of meningismus. LUNGS: Clear to auscultation. Normal chest wall mechanics. HEART: NSR, no MRG. ABDOMEN: Abdomen soft, non-tender, normo-active bowel sounds, no masses, no rebound or guarding. BACK: No CVA TTP. SKIN: No rashes and no bruising. UPPER EXTREMITIES: Upper extremities are grossly normal. LOWER EXTREMITIES: Grossly normal, 1-2+ bilateral extraocular extremity edema. NEURO EXAM: A&O x3, cranial nerves II-XII grossly intact, normal speech, moves all 4 extremities on command w/o issue. Differential diagnoses: Cardiac ischemia, aortic dissection, pulmonary embolism, pneumothorax, pneumonia, pericarditis, myocarditis, esophageal rupture, GERD, cholecystitis, pancreatitis, musculoskeletal, as well as other pathologies. Course: Patient was seen and evaluated the bedside. Full history physical exam was performed. EKG interpreted by me Sinus tachycardia, rate of 109, normal intervals, normal axis, no ST changes or T WI. Imaging Studies: See Below Cardiac monitoring: An order was placed for continuous cardiac monitoring. The monitor shows a rate of 92 with sinus rhythm. MDM: Does present concern for chest pain or shortness of breath. Patient has had weight gain as well as lower extremity edema. The patient was given a dose of Lasix. Patient was also ordered pain medication. The patient did receive nitro in route but did not have improvement in symptoms. Chest x-ray is clear. Given the patient's weight gain I did order next dose of IV Lasix was ordered morphine for pain medication. Given the patient's fluid retention and lower extremity edema and weight gain I did speak the on-call hospitalist Dr. Willingham. The patient was admitted to the medicine service. 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 last grand mal Oct 2020 > follows Dr. José Luis LERNER (shortness of breath) on exertion Thrombocytopenia Tremor Surgical History History of bladder surgery remove mass History of brain surgery x2---2004 @ [facility], 2016 @ [facility]--for brain tumors History of colonoscopy History of esophagogastroduodenoscopy (EGD) History of lithotripsy History of prostate surgery remove mass History of tooth extraction History of wisdom tooth extraction S/P epidural steroid injection Status post right foot surgery replaced 5th metatarsal--hardware in place Family History Grandmother (Paternal) Family history of diabetes mellitus Aunt Family history of diabetes mellitus Uncle Family history of diabetes mellitus Father Prostate cancer Heart disease Mother Cardiac disorder Grandmother (Maternal) Myocardial infarction Other No family history of adverse response to anesthesia Denies family history of Ovarian cancer Breast cancer Colorectal cancer Social History Smoking Status: Never smoker Second Hand Exposure: No; Hx Alcohol Use: No Hx Substance Use: No Preferred Language: Tajik Communication Ability: Effective Visual Impairment: No Limitations Hearing Ability: Normal Emr Analyst Required: No Beliefs That Will Affect Care: None marital status: Legally Current Living Situation: Alone current occupational status: unemployed Feels Safe at Home: Yes Childhood Exposure to Second-Hand Smoke: Yes (parents smoked) Seatbelt Use: always Assistive Devices: CPAP and Glasses Allergies Allergies Allergy/AdvReac Type Severity Reaction Status Date / Time Iodinated Contrast Media Allergy Unknown face/eye Verified 08/11/21 13:19 swelling Quinolones Allergy Unknown HIVES Verified 08/11/21 13:19 Home Meds Home Medications Medication Instructions Recorded Confirmed naproxen 500 mg tablet 500 mg PO Q12H PRN #60 tab 06/15/19 08/11/21 multivitamin 1 tab PO QAM 07/12/19 08/11/21 celecoxib 200 mg capsule 200 mg PO QAM 02/23/21 08/11/21 rizatriptan 10 mg disintegrating 10 mg PO DIRECTED PRN 02/23/21 08/11/21 tablet benztropine 0.5 mg tablet 0.5 mg PO BID 04/19/21 08/11/21 lorazepam 0.5 mg tablet 0.5 mg PO BID PRN 05/11/21 08/11/21 zolmitriptan 5 mg tablet (Zomig) 5 mg PO DIRECTED PRN 05/11/21 08/11/21 diclofenac sodium 1 % topical gel 4 g TOPICAL QID PRN 06/09/21 08/11/21 furosemide 40 mg tablet (Lasix) 60 mg PO DAILY 07/10/21 08/11/21 alfuzosin 10 mg tablet,extended 10 mg PO DAILY tab 07/16/21 08/11/21 release 24 hr albuterol sulfate 90 mcg/actuation 1 inh INHALATION QID PRN 07/28/21 08/11/21 aerosol inhaler hydrocortisone 10 mg tablet 10 - 20 mg PO DAILY 07/28/21 08/11/21 propranolol 20 mg tablet 20 mg PO UD PRN 07/28/21 08/11/21 aripiprazole 5 mg tablet 5 mg PO DAILY 08/11/21 08/11/21 divalproex 500 mg tablet,delayed 1,000 mg PO BID 08/11/21 08/11/21 release (Depakote) duloxetine 30 mg capsule,delayed 30 mg PO DAILY 08/11/21 08/11/21 release gabapentin 300 mg capsule 300 mg PO TID 08/11/21 08/11/21 gabapentin 400 mg capsule 400 mg PO TID 08/11/21 08/11/21 Previous Rx's Medication Instructions Recorded cyclobenzaprine 10 mg tablet 10 mg PO BID PRN 30 Days #60 tab 09/18/20 levothyroxine 175 mcg tablet 175 mcg PO QAM #90 tab 04/10/21 propranolol 160 mg capsule,24 160 mg PO HS #30 cap 04/28/21 hr,extended release testosterone 20.25 mg/1.25 gram 2 pump TOP PM #75 g 05/20/21 (1.62 %) transdermal gel pump somatropin 5 mg/1.5 mL (3.3 mg/mL) 0.3 mg SQ PM #3 ml 06/22/21 subcutaneous pen injector (Norditropin FlexPro) dutasteride 0.5 mg capsule 0.5 mg PO DAILY #90 cap 07/16/21 (Avodart) fluticasone propionate 50 1 spray INTRANASAL BID PRN #16 g 07/21/21 mcg/actuation nasal spray,suspension (Flonase Allergy Relief) desmopressin 0.2 mg tablet 0.2 mg PO BID #60 tab 07/23/21 cephalexin 500 mg capsule 500 mg PO BID 10 Days #20 cap 08/05/21 cetirizine 10 mg tablet (Zyrtec) 10 mg PO BID #60 tab 08/05/21 lisinopril 5 mg tablet 5 mg PO DAILY #30 tab 08/05/21 blood pressure monitor #1 ea 08/06/21 galcanezumab-gnlm 120 mg/mL 120 mg SQ Q4WK #1 ml 08/11/21 subcutaneous pen injector (Emgality Pen) Results & Data (ED) Vital Signs Vital Signs - 24 hr 08/11/21 10:58 08/11/21 11:00 08/11/21 11:11 Temperature 36.8 C Temperature Source Oral Pulse Rate 111 H 106 H 105 H Pulse Rate from SpO2 Sensor 112 H 108 H Pulse Rhythm Regular Pulse Strength Normal Respiratory Rate 20 20 23 Respiratory Effort / Characteristics Non-Labored Respiratory Depth Normal Respiratory Pattern Regular Blood Pressure 140/86 140/86 Blood Pressure Mean 104 104 Blood Pressure Position Sitting Pulse Oximetry 93 96 95 Oxygen Delivery Method Room Air Sepsis Recent Fever Within 48 Hours No Sepsis New/Unexplained Change in Mental Status No Sepsis Action Taken by Nursing No Action Required 08/11/21 11:30 08/11/21 12:01 08/11/21 12:30 Temperature Temperature Source Pulse Rate 99 H 96 H 99 H Pulse Rate from SpO2 Sensor 99 H 93 H 99 H Pulse Rhythm Pulse Strength Respiratory Rate 17 19 20 Respiratory Effort / Characteristics Respiratory Depth Respiratory Pattern Blood Pressure 149/100 H 170/109 H 172/108 H Blood Pressure Mean 116 129 129 Blood Pressure Position Pulse Oximetry 95 95 97 Oxygen Delivery Method Sepsis Recent Fever Within 48 Hours Sepsis New/Unexplained Change in Mental Status Sepsis Action Taken by Nursing 08/11/21 13:01 08/11/21 13:30 08/11/21 14:00 Temperature Temperature Source Pulse Rate 98 H 113 H Pulse Rate from SpO2 Sensor 99 H Pulse Rhythm Pulse Strength Respiratory Rate 18 22 Respiratory Effort / Characteristics Respiratory Depth Respiratory Pattern Blood Pressure 164/79 H 160/95 H 167/87 H Blood Pressure Mean 107 116 113 Blood Pressure Position Pulse Oximetry 96 Oxygen Delivery Method Sepsis Recent Fever Within 48 Hours Sepsis New/Unexplained Change in Mental Status Sepsis Action Taken by Nursing 08/11/21 14:30 08/11/21 15:03 08/11/21 15:30 Temperature Temperature Source Pulse Rate 113 H 110 H 111 H Pulse Rate from SpO2 Sensor Pulse Rhythm Pulse Strength Respiratory Rate 19 21 15 Respiratory Effort / Characteristics Respiratory Depth Respiratory Pattern Blood Pressure Blood Pressure Mean Blood Pressure Position Pulse Oximetry Oxygen Delivery Method Sepsis Recent Fever Within 48 Hours Sepsis New/Unexplained Change in Mental Status Sepsis Action Taken by Nursing 08/11/21 16:00 08/11/21 16:31 08/11/21 17:01 Temperature Temperature Source Pulse Rate 113 H 104 H 96 H Pulse Rate from SpO2 Sensor Pulse Rhythm Pulse Strength Respiratory Rate 19 16 15 Respiratory Effort / Characteristics Respiratory Depth Respiratory Pattern Blood Pressure 173/103 H 183/109 H Blood Pressure Mean 126 133 Blood Pressure Position Pulse Oximetry Oxygen Delivery Method Sepsis Recent Fever Within 48 Hours Sepsis New/Unexplained Change in Mental Status Sepsis Action Taken by Nursing 08/11/21 17:30 08/11/21 18:00 Temperature Temperature Source Pulse Rate 98 H 94 H Pulse Rate from SpO2 Sensor 99 H Pulse Rhythm Pulse Strength Respiratory Rate 16 12 Respiratory Effort / Characteristics Respiratory Depth Respiratory Pattern Blood Pressure 168/111 H 166/101 H Blood Pressure Mean 130 122 Blood Pressure Position Pulse Oximetry 94 Oxygen Delivery Method Sepsis Recent Fever Within 48 Hours Sepsis New/Unexplained Change in Mental Status Sepsis Action Taken by Retirement Medications Current Medication List: was personally reviewed by me Laboratory Data Attestation: I reviewed the patient's lab results. Result diagrams: 08/11/21 11:04 08/11/21 11:04 Lab Results 08/11/21 08/11/21 08/11/21 Range/Units 11:04 11:04 11:04 WBC 9.88 (4.8-10.8) K/uL RBC 4.74 (4.7-6.1) M/uL Hgb 15.9 (14.0-18.0) g/dL Hct 45.7 (42-52) % MCV 96.4 (80-100) fL MCH 33.5 (25-34) pg MCHC 34.8 (32-36) g/dL RDW Std Deviation 47.5 H (36.4-46.3) fL RDW Coeff of Yanira 13.5 (11.5-14.5) % Plt Count 152 (130-400) K/uL MPV 8.7 (7.4-10.4) fL Immature Gran % (Auto) 1.3 % Neut % (Auto) 67.2 % Lymph % (Auto) 22.0 % [place] % (Auto) 8.7 % Eos % (Auto) 0.6 % Baso % (Auto) 0.2 % Neut # (Auto) 6.64 H (1.4-6.5) K/uL Lymph # (Auto) 2.17 (1.2-3.4) K/uL [place] # (Auto) 0.86 H (0.11-0.59) K/uL Eos # (Auto) 0.06 (0-0.5) K/uL Baso # (Auto) 0.02 (0-0.2) K/uL Immature Gran # (Auto) 0.13 H (0.00-0.02) K/uL PT 10.5 (9.0-12.0) Seconds INR 1.0 (0.9-1.1) APTT 25.7 (21.0-31.0) Seconds PTT Ratio 1.0 Sodium 138 (136-145) mmol/L Potassium 3.9 (3.5-5.1) mmol/L Chloride 103 (98-107) mmol/L Carbon Dioxide 27 (21-32) mmol/L Anion Gap 8.0 (3-11) BUN 15 (7-18) mg/dl Creatinine 1.11 (0.6-1.4) mg/dl Est Cr Clr Drug Dosing 103.7 ml/min Est GFR ( Amer) 87.4 ml/min Est GFR (Non-Af Amer) 75.4 ml/min BUN/Creatinine Ratio 13.3 (10-20) Glucose 118 H (70-99) mg/dl Calcium 9.3 (8.5-10.1) mg/dl Total Bilirubin 0.5 (0.2-1) mg/dl AST 31 (15-37) U/L ALT 96 H (12-78) U/L Alkaline Phosphatase 46 (45-117) U/L Troponin I < 0.015 (0-0.045) ng/ml NT-Pro-B Natriuret Pep (0-900) pg/ml Total Protein 6.8 (6.4-8.2) gm/dl Albumin 3.7 (3.4-5.0) gm/dl Globulin 3.1 (2.5-4.0) gm/dl Albumin/Globulin Ratio 1.2 (0.9-2) COVID-19 Eval Order SARS-CoV-2 (PCR) (Negative) 08/11/21 08/11/21 08/11/21 Range/Units 11:35 13:13 13:13 WBC (4.8-10.8) K/uL RBC (4.7-6.1) M/uL Hgb (14.0-18.0) g/dL Hct (42-52) % MCV (80-100) fL MCH (25-34) pg MCHC (32-36) g/dL RDW Std Deviation (36.4-46.3) fL RDW Coeff of Yanira (11.5-14.5) % Plt Count (130-400) K/uL MPV (7.4-10.4) fL Immature Gran % (Auto) % Neut % (Auto) % Lymph % (Auto) % [place] % (Auto) % Eos % (Auto) % Baso % (Auto) % Neut # (Auto) (1.4-6.5) K/uL Lymph # (Auto) (1.2-3.4) K/uL [place] # (Auto) (0.11-0.59) K/uL Eos # (Auto) (0-0.5) K/uL Baso # (Auto) (0-0.2) K/uL Immature Gran # (Auto) (0.00-0.02) K/uL PT (9.0-12.0) Seconds INR (0.9-1.1) APTT (21.0-31.0) Seconds PTT Ratio Sodium (136-145) mmol/L Potassium (3.5-5.1) mmol/L Chloride (98-107) mmol/L Carbon Dioxide (21-32) mmol/L Anion Gap (3-11) BUN (7-18) mg/dl Creatinine (0.6-1.4) mg/dl Est Cr Clr Drug Dosing ml/min Est GFR ( Amer) ml/min Est GFR (Non-Af Amer) ml/min BUN/Creatinine Ratio (10-20) Glucose (70-99) mg/dl Calcium (8.5-10.1) mg/dl Total Bilirubin (0.2-1) mg/dl AST (15-37) U/L ALT (12-78) U/L Alkaline Phosphatase (45-117) U/L Troponin I (0-0.045) ng/ml NT-Pro-B Natriuret Pep 31 (0-900) pg/ml Total Protein (6.4-8.2) gm/dl Albumin (3.4-5.0) gm/dl Globulin (2.5-4.0) gm/dl Albumin/Globulin Ratio (0.9-2) COVID-19 Eval Order Covid19 at [facility] SARS-CoV-2 (PCR) NEGATIVE (Negative) Administered Medications Nicotine (Nicotine 21 Mg/24 Hr Tdsy) 21 mg TD QAM OBDULIO Stop: 09/10/21 14:44 Last Admin: 08/11/21 14:58 Dose: 21 mg Documented by: [id number] Discontinued Medications Furosemide (Furosemide 40 Mg/4 Ml Vial) 60 mg IV NOW STA Stop: 08/11/21 12:36 Last Admin: 08/11/21 13:03 Dose: 60 mg Documented by: [id number] Gabapentin (Gabapentin 600 Mg Tab) 600 mg PO NOW STA Stop: 08/11/21 17:50 Last Admin: 08/11/21 18:00 Dose: 600 mg Documented by: [id number] Gabapentin (Gabapentin 100 Mg Cap) 100 mg PO NOW STA Stop: 08/11/21 17:50 Last Admin: 08/11/21 18:07 Dose: 100 mg Documented by: [id number] Morphine Sulfate (Morphine Sulfate 4 Mg/Ml 1 Ml Carp\Vial) 4 mg IV NOW STA Stop: 08/11/21 12:36 Last Admin: 08/11/21 13:04 Dose: 4 mg Documented by: [id number] Ondansetron HCl (Ondansetron Inj 2 Mg/Ml 2 Ml Vial) 4 mg IV NOW STA Stop: 08/11/21 17:50 Last Admin: 08/11/21 18:00 Dose: 4 mg Documented by: [id number] Imaging Data Radiologist's Impression: Chest X-Ray 08/11/21 11:31 XR chest 1V portable HISTORY: 51 years-old Male Chest Pain acute atypical chest pain COMPARISON: Chest radiograph and chest CT 07/10/2021 TECHNIQUE: Portable AP view of the chest FINDINGS: Cardiac silhouette is upper limits of normal in size. Prominence of the interstitium is likely secondary to patient body habitus. No pneumothorax, pleural effusion, airspace consolidation or overt pulmonary edema. Mild blunting of the costophrenic angles, likely from atelectasis. Healed chronic left mid clavicular fracture deformity. No acute fracture. IMPRESSION: No acute process. ACT 112: Negative or not required by law. The above report was generated using voice recognition software. It may contain grammatical, syntax or spelling errors. Electronically signed by: Bean Tolentino M.D. 08/11/2021 11:47 AM Discharge Plan Visit Data Chief Complaint: Chest Pain Stated Complaint: CHEST PAIN ED Provider: Curtis Birtton Discharge Problem: Atypical chest pain, Fluid retention Patient Disposition: Admitted As Inpatient Discharge Instructions Interventions: ED Discharge Assessment Last Done: 08/11/21 18:22 Forms Stand Alone Forms: [employer] Prescriptions Prescriptions: No Action naproxen 500 mg tablet 500 mg PO Q12H PRN (Reason: Pain) Qty: 60 RF: 0 levothyroxine 175 mcg tablet 175 mcg PO QAM Qty: 90 RF: 1 Hold Instructions: try armour propranolol 160 mg capsule,extended release 24 hr 160 mg PO HS Qty: 30 RF: 5 testosterone 20.25 mg/1.25 gram (1.62 %) gel in metered-dose pump 2 pump TOP PM Qty: 75 RF: 5 Norditropin FlexPro 5 mg/1.5 mL (3.3 mg/mL) pen injector 0.3 mg SQ PM Qty: 3 RF: 11 desmopressin 0.2 mg tablet 0.2 mg PO BID Qty: 60 RF: 5 (DME) blood pressure monitor Kit See Rx Instructions .Route Qty: 1 RF: 0 Emgality Pen 120 mg/mL pen injector 120 mg SQ Q4WK Qty: 1 RF: 5 cyclobenzaprine 10 mg tablet 10 mg PO BID PRN (Reason: muscle spasm) 30 Days Qty: 60 RF: 1 fluticasone propionate [Flonase Allergy Relief] 50 mcg/actuation spray,suspension 1 spray intranasal BID PRN (Reason: allergy symptoms) Qty: 16 RF: 0 cetirizine [Zyrtec] 10 mg tablet 10 mg PO BID Qty: 60 RF: 3 lisinopril 5 mg tablet 5 mg PO DAILY Qty: 30 RF: 2 cephalexin 500 mg capsule 500 mg PO BID 10 Days Qty: 20 RF: 0 alfuzosin 10 mg tablet extended release 24 hr 10 mg PO DAILY RF: 0 dutasteride [Avodart] 0.5 mg capsule 0.5 mg PO DAILY Qty: 90 RF: 3 multivitamin Tablet 1 tab PO QAM RF: 0 furosemide [Lasix] 40 mg tablet 60 mg PO DAILY RF: 0 rizatriptan 10 mg Tablet,Disintegrating 10 mg PO DIRECTED PRN (Reason: Migraine Headache) RF: 0 celecoxib 200 mg capsule 200 mg PO QAM RF: 0 benztropine 0.5 mg tablet 0.5 mg PO BID RF: 0 zolmitriptan [Zomig] 5 mg tablet 5 mg PO DIRECTED PRN (Reason: migraine headache) RF: 0 lorazepam 0.5 mg tablet 0.5 mg PO BID PRN (Reason: seizures) RF: 0 diclofenac sodium 1 % Gel 4 g TOPICAL QID PRN (Reason: Pain) RF: 0 hydrocortisone 10 mg tablet 10 - 20 mg PO DAILY RF: 0 albuterol sulfate 90 mcg/actuation HFA aerosol inhaler 1 inh inhalation QID PRN (Reason: DIRECTED) RF: 0 propranolol 20 mg tablet 20 mg PO UD PRN (Reason: tremor) RF: 0 gabapentin 400 mg capsule 400 mg PO TID RF: 0 gabapentin 300 mg Capsule 300 mg PO TID RF: 0 aripiprazole 5 mg Tablet 5 mg PO DAILY RF: 0 duloxetine 30 mg capsule,delayed release(DR/EC) 30 mg PO DAILY RF: 0 divalproex [Depakote] 500 mg tablet,delayed release (DR/EC) 1,000 mg PO BID RF: 0 Referrals Referrals: Pro,Larry Crisostomo MD [Primary Care Provider] -
[2021-08-11 12:05] LABS: Albumin Globulin Ratio 1.2 (0.9-2); Alkaline Phosphatase 46 U/L (45-117); Bilirubin,Total 0.5 mg/dl (0.2-1); Globulin 3.1 gm/dl (2.5-4.0); Total Protein 6.8 gm/dl (6.4-8.2); Troponin I < 0.015 ng/ml (0-0.045)
[2021-08-11] MEDS ORDERED: MoRPHine SULFATE 4 MG/ML 1 ML CARP\\VIAL IV STA (12:35)
[2021-08-11] MEDS ORDERED: FUROSEMIDE 40 MG/4 ML VIAL IV STA (12:35)
--- NOTE | 2021-08-11 14:29 | History & Physical Report ---
Date of Service August 11, 2021 Assessment & Plan (1) Chest pain: Plan: Patient with exertional chest pain over the last 3 to 4 days.. Patient has negative troponin EKG in the ER. He does have risk factors with obesity and diabetes. Patient also was on multiple medications for his pituitary apoplexy. Patient initially felt to be having some symptoms of heart failure but chest x- ray is unremarkable he was given Lasix in the emergency department. Patient morgan l be given aspirin and scheduled for a stress echo on 08/12 unless he has an abnormality of his EKG or troponin. (2) Diabetes: Plan: Blood glucoses seem to be ranging from the 1 20-1 80 range he had previously been on some Metformin as an outpatient but says he is in transition with his outpatient provider globin A1c checked August 05 was 5.7. We will cover him with sliding scale insulin this time and have had a [place] discussed with him any further educational needs for diabetic care. The family believes his blood sugars have ranged more widely abnormal at home over the last 1 month (3) HTN (hypertension): Plan: Patient is having issues as out with outpatient blood pressure control. This is in parallel of difficulty controlling his glucose. Patient typically on Lasix and lisinopril typically taking propranolol which she takes mostly for tremor but is likely also helping his blood pressure (4) Seizure-like activity: Plan: Patient's been maintained on Depakote and gabapentin (5) Pituitary neoplasm: Plan: P patient had a large pituitary tumor diagnosed in 2001 treated at [facility]. Treated with urgent surgery and radiation with significant vision loss with some improvement pathology was nondiagnostic. 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 Voss. (6) Open toe wound: Plan: Patient's been on some Keflex for an open toe wound it looks to be more macerated and does have a foul odor associated with it. He is changed to Augmentin with dressings and once his cardiac evaluation is complete likely be referred to outpatient podiatric care (7) DVT prophylaxis: Plan: Because of the patient's morbid obesity patient be given 1 dose of heparin tonight at 7500 subcu x1 if he remains in the hospital for longer periods of time we will escalate this to a normal dosing routine however if the stress test is abnormal would fully anticipate him to go home History of Present Illness Primary Care Provider: Larry Perez MD 51 M with history of pituitary insufficiency and diabetes, followed by Dr Phillips for HFpEF, presentes with SCOTT that is associated with Chest pain, and some jose martin phoresis. Lasting 30 minutes relieved with reest Pt does have some weight gain but does not have Pulmonary edema seen on CXR nor does he have JVD. He has increased lower extremity edema, has a R great toe that is being treated with Keflex for what appears to be an ingrown nail, and according to daughter has had marked glucose intolerance for the last few weeks, typically managed by Dr Perez for diabetes but sees Dr Voss for his pituitary issues. IN the ER Troponin is negative and ECG non acute Allergies Allergy/AdvReac Type Severity Reaction Status Date / Time Iodinated Contrast Media Allergy Unknown face/eye Verified 08/11/21 13:19 swelling Quinolones Allergy Unknown HIVES Verified 08/11/21 13:19 Home Medications Medication Instructions Recorded Confirmed Type naproxen 500 mg tablet 500 mg PO Q12H PRN #60 tab 06/15/19 08/11/21 History multivitamin 1 tab PO QAM 07/12/19 08/11/21 History cyclobenzaprine 10 mg tablet 10 mg PO BID PRN 30 Days #60 tab 09/18/20 08/11/21 Rx celecoxib 200 mg capsule 200 mg PO QAM 02/23/21 08/11/21 History rizatriptan 10 mg disintegrating 10 mg PO DIRECTED PRN 02/23/21 08/11/21 History tablet levothyroxine 175 mcg tablet 175 mcg PO QAM #90 tab 04/10/21 08/11/21 Rx benztropine 0.5 mg tablet 0.5 mg PO BID 04/19/21 08/11/21 History propranolol 160 mg capsule,24 160 mg PO HS #30 cap 04/28/21 08/11/21 Rx hr,extended release lorazepam 0.5 mg tablet 0.5 mg PO BID PRN 05/11/21 08/11/21 History zolmitriptan 5 mg tablet (Zomig) 5 mg PO DIRECTED PRN 05/11/21 08/11/21 History testosterone 20.25 mg/1.25 gram 2 pump TOP PM #75 g 05/20/21 08/11/21 Rx (1.62 %) transdermal gel pump diclofenac sodium 1 % topical gel 4 g TOPICAL QID PRN 06/09/21 08/11/21 History somatropin 5 mg/1.5 mL (3.3 mg/mL) 0.3 mg SQ PM #3 ml 06/22/21 08/11/21 Rx subcutaneous pen injector (Norditropin FlexPro) furosemide 40 mg tablet (Lasix) 60 mg PO DAILY 07/10/21 08/11/21 History alfuzosin 10 mg tablet,extended 10 mg PO DAILY tab 07/16/21 08/11/21 History release 24 hr dutasteride 0.5 mg capsule 0.5 mg PO DAILY #90 cap 07/16/21 08/11/21 Rx (Avodart) fluticasone propionate 50 1 spray INTRANASAL BID PRN #16 g 07/21/21 08/11/21 Rx mcg/actuation nasal spray,suspension (Flonase Allergy Relief) desmopressin 0.2 mg tablet 0.2 mg PO BID #60 tab 07/23/21 08/11/21 Rx albuterol sulfate 90 mcg/actuation 1 inh INHALATION QID PRN 07/28/21 08/11/21 History aerosol inhaler hydrocortisone 10 mg tablet 10 - 20 mg PO DAILY 07/28/21 08/11/21 History propranolol 20 mg tablet 20 mg PO UD PRN 07/28/21 08/11/21 History cephalexin 500 mg capsule 500 mg PO BID 10 Days #20 cap 08/05/21 08/11/21 Rx cetirizine 10 mg tablet (Zyrtec) 10 mg PO BID #60 tab 08/05/21 08/11/21 Rx lisinopril 5 mg tablet 5 mg PO DAILY #30 tab 08/05/21 08/11/21 Rx blood pressure monitor #1 ea 08/06/21 Rx aripiprazole 5 mg tablet 5 mg PO DAILY 08/11/21 08/11/21 History divalproex 500 mg tablet,delayed 1,000 mg PO BID 08/11/21 08/11/21 History release (Depakote) duloxetine 30 mg capsule,delayed 30 mg PO DAILY 08/11/21 08/11/21 History release gabapentin 300 mg capsule 300 mg PO TID 08/11/21 08/11/21 History gabapentin 400 mg capsule 400 mg PO TID 08/11/21 08/11/21 History galcanezumab-gnlm 120 mg/mL 120 mg SQ Q4WK #1 ml 08/11/21 08/11/21 Rx subcutaneous pen injector (Emgality Pen) Past Med/Surg History Medical History Bipolar I disorder Bladder mass benign BPH with obstruction/lower urinary tract symptoms Depression Diverticular disease Growth hormone deficiency Hematuria resolved Insomnia Kidney stones HX Lumbar radiculopathy Lumbar spine pain Migraine without aura and without status migrainosus, not intractable Obstructive sleep apnea of adult cpap Pituitary diabetes insipidus Pituitary hypogonadism Pituitary hypothyroidism Pituitary neoplasm Prostate mass benign Secondary adrenal insufficiency Seizure disorder last seizure 01/2021 > (non epileptic) gets grand mal 3-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 last grand mal Oct 2020 > follows Dr. José Luis LERNER (shortness of breath) on exertion Thrombocytopenia Tremor Surgical History History of bladder surgery remove mass History of brain surgery x2---2004 @ [facility], 2016 @ [facility]--for brain tumors History of colonoscopy History of esophagogastroduodenoscopy (EGD) History of lithotripsy History of prostate surgery remove mass History of tooth extraction History of wisdom tooth extraction S/P epidural steroid injection Status post right foot surgery replaced 5th metatarsal--hardware in place Family History Grandmother (Paternal) Family history of diabetes mellitus Aunt Family history of diabetes mellitus Uncle Family history of diabetes mellitus Father Prostate cancer Heart disease Mother Cardiac disorder Grandmother (Maternal) Myocardial infarction Other No family history of adverse response to anesthesia Denies family history of Ovarian cancer Breast cancer Colorectal cancer Social History Smoking Status: Never smoker Second Hand Exposure: Yes; Do You Dip or Chew Tobacco: Yes; Tobacco Cessation Education Requested by Patient: No Hx Alcohol Use: No Hx Substance Use: No Preferred Language: Belarusian Communication Ability: Effective Visual Impairment: No Limitations Hearing Ability: Normal Parking Lot Supervisor Required: No Beliefs That Will Affect Care: None marital status: Legally Current Living Situation: Alone current occupational status: unemployed Other Information That Helps Us Care for You: No Feels Safe at Home: Yes Safety Concerns: Feels Safe At This Time Childhood Exposure to Second-Hand Smoke: Yes (parents smoked) Seatbelt Use: always Assistive Devices: CPAP and Glasses Review of Systems Review of Systems: Mild distress and fatigue no headache, no visual changes no speech or swallowing issues Chest discomfort described as pressure associate with exertion relieved after 30 minutes of rest Shortness of breath worsened with exertion over what the patient feels would be appropriate associated diaphoresis no cough or wheezes no abdominal pain, nausea or vomiting, diarrhea or constipation no dysuria, hematuria or frequency no focal joint pain or swelling no back pain, CVA tenderness or radicular pain Is comfort to the medial edge of his right great toenail insistent with an ingrown nail possible infection no focal signs of weakness or numbness or altered sensation no complaints of anxiety or depression.. Physical Exam Physical Exam: The patient appeared well nourished and normally developed. Vital signs as documented. Head exam is normocephalic atraumatic Neck is without JVD, thyromegaly, or carotid bruits. Lungs are clear to auscultation, no focal loss of breath sounds Cardiac exam, Rhythm is regular.. No murmurs, rubs or gallops. Abdominal exam reveals normal bowel sounds, soft non tender, no masses Extremities are 1-2+ edema bilaterally to his knees Neurologic exam is alert and oriented, no focal loss of strength or sensation Skin i right great nail has a medial ingrown toenail with some erythema and maceration of tissue Psychologically is without concerns for anxiety or depression Results & Data Results & Data ([facility]) Vital Signs (Past 12 Hours) Vital Signs Temp Pulse Resp BP Pulse Ox 08/11/21 13:01 98 H 18 164/79 H 96 08/11/21 12:30 99 H 20 172/108 H 97 08/11/21 12:01 96 H 19 170/109 H 95 08/11/21 11:30 99 H 17 149/100 H 95 08/11/21 11:11 98.2 F 105 H 23 140/86 95 08/11/21 11:00 106 H 20 140/86 96 08/11/21 10:58 111 H 20 93 Diagnostic Findings Chest x-ray is without heart failure seen ECG Additional Comments: Normal sinus rhythm without acute changes Code Status & VTE Plan VTE Prophylaxis Plan VTE Prophylaxis will be ordered: Yes PG Care Time/CCT Total # of Minutes Spent Total Time Spent with Patient: Total time spent is greater than 50% in coordination of care (as documented) at patient's floor/unit and/or counseling patient: Coding Level of Care Code INT OBSERVATION CARE 70M LVL 3 Diagnoses HTN (hypertension) I10 Seizure-like activity R56.9 Pituitary neoplasm D49.7 Open toe wound S91.109A Chest pain R07.9 Diabetes E11.9 DVT prophylaxis Z29.9
[2021-08-11] MEDS: NICOTINE 21 MG/24 HR TDSY TD SCH (14:58)
--- NOTE | 2021-08-11 17:00 | Electrocardiogram Report ---
Test Reason : Blood Pressure : / mmHG Vent. Rate : 109 BPM Atrial Rate : 109 BPM P-R Int : 138 ms QRS Dur : 082 ms QT Int : 332 ms P-R-T Axes : 048 -12 026 degrees QTc Int : 447 ms Sinus tachycardia Otherwise normal ECG When compared with ECG of 10-JUL-2021 15:16, No significant change was found Confirmed by Garfield Marx ([id number]) on 08/11/2021 5:00:17 PM Referred By: SELF Confirmed By:Garfield Marx
[2021-08-11] MEDS ORDERED: GABAPENTIN 100 MG CAP PO STA (17:49)
[2021-08-11] MEDS ORDERED: GABAPENTIN 600 MG TAB PO STA (17:49)
[2021-08-11] MEDS ORDERED: ONDANSETRON INJ 2 MG/ML 2 ML VIAL IV STA (17:49)
[2021-08-11] MEDS ORDERED: GLUCAGON FOR INJ 1 MG VIAL SQ PRN (19:27)
[2021-08-11] MEDS ORDERED: DEXTROSE 50% 50 ML SYRINGE IV PRN (19:27)
[2021-08-11] MEDS ORDERED: GLUCOSE 40% GEL 15 GM TUBE PO PRN (19:27)
[2021-08-11] MEDS ORDERED: PHARMACY GLYCEMIC MGMT CONSULT PRN (19:27)
[2021-08-11] MEDS ORDERED: METOPROLOL TARTRATE 1 MG/ML VIAL IV PRN (19:27)
[2021-08-11] MEDS ORDERED: CARBOHYDRATES FOR HYPOGLYCEMIA PO PRN (19:27)
[2021-08-11] MEDS ORDERED: DICLOFENAC SOD 1% GEL 100 GM TUBE EXT PRN (19:27)
[2021-08-11] MEDS ORDERED: hydrALAZINE HCL 20 MG/ML VIAL IV PRN (19:27)
[2021-08-11] MEDS ORDERED: ACETAMINOPHEN 325 MG TAB PO PRN (19:27)
[2021-08-11] MEDS ORDERED: ONDANSETRON INJ 2 MG/ML 2 ML VIAL IV PRN (19:27)
[2021-08-11] MEDS ORDERED: GLUCOSE 10 TABS/TUBE PO PRN (19:27)
[2021-08-11] MEDS ORDERED: ALBUTEROL HFA 8 GM INHALER INH PRN (19:27)
[2021-08-11] MEDS ORDERED: ALUMINUM/MAGNESIUM SUSP 30 ML UDC PO PRN (19:27)
[2021-08-11] MEDS ORDERED: FLUTICASONE PROPIONATE NA SPR 16 GM BTL PRN (19:27)
[2021-08-11] MEDS ORDERED: HEPARIN SOD 5,000 UNIT/0.5 ML VIAL SQ ONE (20:15)
--- NOTE | 2021-08-11 20:59 | Pharmacy Report ---
Pharmacy Glycemic Short Note 2 - Date of Service August 11, 2021 - Glycemic Short BSG Results (Last 24 hours): 08/11/21 08/11/21 11:04 19:33 Glucose 118 H POC Glucose 104 H OUTPATIENT ANTIDIABETIC REGIMEN: * NONE * A1C 5.7% (08/05/21) ASSESSMENT: * Anders is a T2DM male admitted with chest pain * Per H&P, patient was previously on metformin. He is currently not on any anti- diabetic agents. A1c of 5.7% * Will start patient on Novolog (weight + stress 2). Hold off on basal insulin until fasting BSG available. PLAN FOR INPATIENT GLYCEMIC CONTROL: * Hold outpatient oral diabetes medications * Basal insulin * hold for now * Bolus insulin * NovoLog per scale ACHS or Q6hrs while NPO * Goal Range: Low 110 mg/dL - High 140 mg/dL * Correction Factor: 25 mg/dL/unit * Nutritional / Prandial insulin per carb ratio of 1 unit per 8 grams CHO consumed PLAN FOR DISCHARGE: *
[2021-08-11] MEDS ORDERED: PROPRANOLOL HCL LA 80 MG CAPCR PO SCH (21:00)
[2021-08-11] MEDS ORDERED: HYDROCORTISONE 10 MG TAB PO SCH (21:00)
[2021-08-11] MEDS: AMOXICILLIN/CLAVULANATE 875 MG TAB PO SCH (21:13)
[2021-08-11] MEDS: DESMOPRESSIN ACETATE 0.1 MG TAB PO SCH (21:16)
[2021-08-11] MEDS: GABAPENTIN 300 MG CAP PO SCH (21:16)
[2021-08-11] MEDS: DIVALPROEX DELAY RELEASE 500 MG TAB PO SCH (21:17)
[2021-08-11] MEDS: BENZTROPINE MESYLATE 0.5 MG TAB PO SCH (21:18)
[2021-08-11] MEDS: GABAPENTIN 400 MG CAP PO SCH (21:19)
[2021-08-11] MEDS: INSULIN ASPART 100 UNITS/ML 3 ML PEN SC SCH (21:20)
[2021-08-12] MEDS: NITROGLYCERIN SL 0.4 MG/TAB TAB SL PRN (03:38)
[2021-08-12] MEDS: LEVOTHYROXINE SODIUM 175 MCG TABLET PO SCH (06:24)
[2021-08-12 07:22] LABS: Estimated Average Glucose 114 mg/dl; Hemoglobin A1C 5.6 % (4.5-5.6)
[2021-08-12] MEDS: INSULIN ASPART 100 UNITS/ML 3 ML PEN SC SCH ×4 (07:55→20:48)
[2021-08-12] MEDS: AMOXICILLIN/CLAVULANATE 875 MG TAB PO SCH ×2 (07:57→16:57)
[2021-08-12] MEDS: CeleBREX 200 MG CAP PO SCH (07:57)
[2021-08-12] MEDS: DULoxetine HCL 30 MG CAP PO SCH (07:58)
[2021-08-12] MEDS: lisinopril 5 MG TAB PO SCH (07:58)
[2021-08-12] MEDS: GABAPENTIN 300 MG CAP PO SCH ×3 (07:59→20:44)
[2021-08-12] MEDS: MULTIVITAMIN TAB PO SCH (07:59)
[2021-08-12] MEDS: DESMOPRESSIN ACETATE 0.1 MG TAB PO SCH ×2 (07:59→20:46)
[2021-08-12] MEDS: DIVALPROEX DELAY RELEASE 500 MG TAB PO SCH ×2 (08:00→20:46)
[2021-08-12] MEDS: BENZTROPINE MESYLATE 0.5 MG TAB PO SCH ×2 (08:01→20:45)
[2021-08-12] MEDS: GABAPENTIN 400 MG CAP PO SCH ×3 (08:01→20:45)
[2021-08-12] MEDS: CETIRIZINE HCL 10 MG TABLET PO SCH (08:02)
[2021-08-12] MEDS: ARIPiprazole 5 MG TAB PO SCH (08:02)
[2021-08-12] MEDS: ASPIRIN 81 MG ECTAB PO SCH (08:02)
[2021-08-12] MEDS: ALFUZOSIN HCL 10 MG TAB PO SCH (08:02)
[2021-08-12 08:03] LABS: Blood Urea Nitrogen 23 mg/dl (7-18); Calcium 9.1 mg/dl (8.5-10.1); Carbon Dioxide 30 mmol/L (21-32); Chloride 100 mmol/L (98-107); Creatinine Clr Calc Pharmacy 89.2 ml/min; Est GFR (Non-African American) 64.7 ml/min; Glucose 87 mg/dl (70-99); Magnesium 2.3 mg/dl (1.8-2.4); Potassium 4.6 mmol/L (3.5-5.1); Sodium 136 mmol/L (136-145)
--- NOTE | 2021-08-12 08:05 | Electrocardiogram Report ---
Test Reason : Blood Pressure : / mmHG Vent. Rate : 073 BPM Atrial Rate : 073 BPM P-R Int : 150 ms QRS Dur : 088 ms QT Int : 392 ms P-R-T Axes : 064 003 019 degrees QTc Int : 431 ms Normal sinus rhythm Normal ECG When compared with ECG of 11-AUG-2021 10:57, Vent. rate has decreased BY 36 BPM Otherwise no significant change Confirmed by Garfield Marx ([id number]) on 08/12/2021 8:05:27 AM Referred By: REFERRED SELF Confirmed By:Garfield Marx
[2021-08-12 08:09] LABS: Troponin I < 0.015 ng/ml (0-0.045)
[2021-08-12] MEDS: RIZATRIPTAN BENZOATE MLT 10 MG TAB PO PRN ×2 (08:09→21:12)
[2021-08-12] MEDS: HYDROCORTISONE 10 MG TAB PO SCH ×2 (08:14→16:07)
[2021-08-12] MEDS ORDERED: FUROSEMIDE 20 MG TAB PO SCH (09:00)
[2021-08-12] MEDS: NICOTINE 21 MG/24 HR TDSY TD SCH (10:30)
--- NOTE | 2021-08-12 10:44 | XCELERA ---
[id number]
[2021-08-12] MEDS: LORazepam 0.5 MG TAB PO PRN (11:50)
[2021-08-12] MEDS ORDERED: Nursing to Pharmacy Communication SCH ×2 (14:45)
[2021-08-12] MEDS ORDERED: FUROSEMIDE 60 MG in SYRINGE 0 ML IV ONE (15:00)
[2021-08-12] MEDS: SOMATROPIN SQ SCH (20:40)
[2021-08-12] MEDS: DUTASTERIDE PO SCH (20:43)
[2021-08-12] MEDS: PROPRANOLOL HCL 60 MG LA CAP PO SCH (20:44)
[2021-08-12] MEDS: TESTOSTERONE GEL TOP SCH (20:44)
[2021-08-12] MEDS ORDERED: RIZATRIPTAN BENZOATE 10 MG TAB PO STA (21:03)
--- NOTE | 2021-08-12 21:36 | Hospitalist Progress Note ---
Date of Service August 12, 2021 Assessment & Plan (1) Chest pain: Plan: No evidence of ACS (negative troponins, non-ischemic EKGs, etc). [id number] he has multiple CAD risk factors including strong fam Hx (mom/dad), DM, obesity, etc. Exercise stress echo unfortunately was suboptimal as he didn't hit target heart rate during the study. His history and risk factors are concerning, and given the suboptimal stress test today, he may need additional testing. I spoke with Dr Marx from [facility] Cardiology and he will consult tomorrow. In addition to possible CAD he could be having chest symptoms from pulmonary edema. He clearly has evidence of volume overload and edema on exam today. Diuresis to be continued. See below. Cont inderal but lower dose to 120mg daily. Cont asa 81mg daily. Cont YUSUF. Lasix IV x 1. Of note - just had negative LE dopplers earlier this month making VTE causing chest pain less likely. (2) Weight gain: Plan: Patient was ~105kg in February 2021. At time of admission yesterday he was ~120kg. I suspect this is indeed fluid weight gain. He states that by April he was having significant LE edema. At that time lasix was started and he has been taking lasix since that time. Of note - pharmacy records suggest he was started on Abilify in February. It is possible that the ability is contributing to fluid retention/weight gain. Cannot exclude gabapentin contributing to edema. Cannot exclude NSAID use (celebrex). May have element of diastolic CHF as well. No evidence of liver disease, decompensated hypothyroidism, renal disease, severe hypoalbuminemia. Received IV lasix yesterday; will give lasix IV again today. Re-eval tomorrow. (3) Fluid retention: Plan: See above in #1, #2. Lasix 60mg IV x 1 now. Hold am PO lasix; may need additionial IV diuresis. Labs in am. (4) Diabetes: Plan: Recent HbA1C was <6%. BSGs here have been excellent but he had had labile BSGs, per his report, at home. Continue to monitor. (5) HTN (hypertension): Plan: BPs have improved with simply placing him on home regimen and diuresing him. Continue to follow. Propranolol dose decreased today. (6) Seizure-like activity: Plan: Cont Depakote and gabapentin. Most recent depakote level was wnl. (7) Pituitary neoplasm: Plan: Pituitary tumor was first diagnosed in 2001 and subsequently treated at [facility]. Received surgery and radiation. Had vision loss with some improvement thereafter. By report pathology was nondiagnostic. Repeat surgery in [place] - 2016 - after recurrence was seen on imaging. No issues with pituitary since then. 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 (8) Panhypopituitarism: Plan: see above (9) Open toe wound: Plan: great toe - continue augmentin (10) DVT prophylaxis: Plan: heparin 7500 units TID (11) Bipolar I disorder: Plan: cont usual outpatient meds (12) Vertigo: Plan: patient reports 3-4 brief episodes of vertigo brought on by movement over the last few weeks. he has a known arachnoid cyst of the posterior fossa and this was seen on CT head in 2020. consider MRI brain to ensure the cyst is not contributing to his vertigo. meclizine prn in meantime. Admission and Anticipated Discharge Date Admission Date: August 11, 2021 Subjective patient states that he has not had any chest pain since admission except for his stress test today. had central chest pain lasting 5-10 minutes. resolved with time. he reports that up until 1-2 months ago he was going to the gym. since then he has stopped due to chest pain/tightness and dyspnea. much of the above coincides with progressive weight gain and worsening fluid retention. he states he has edema of the legs. abdomen feels distended. patient states that his chest pain episodes typically come on during activity. he has had several episodes of exertional chest pain over the last few weeks. he mentions both his mom and dad had CABG. with respect to dyspnea - worse with activity and laying flat. improved with sitting up. no cough. good appetite. patient takes chronic hydrocortisone for his secondary adrenal insufficiency but he has had no stress dose steroids of late. he did have recent steroid injection into the back by Dr Garcia. Review of Systems 2 Review of Systems: gen - no fevers, no chills CV - multiple episodes of central chest pain GI - no abd pain, nausea, emesis Pulm - no cough, no dyspnea at rest; +SCOTT - voiding ok neuro - 3-4 episodes of vertigo over last few weeks; <1min in duration, brought on by walking; it is not a lightheaded feeling Physical Exam Physical Exam: gen - obese, NAD, pleasant HEENT - mouth, MMM neck - mild JVD present heart - RRR, s1 s2, no murmur lungs - mild decreased BS bases, no rales, no wheeze, no increased work of breathing abd - feels mildly distended (edema?); BS+; NT ext - 2-3+ edema b/l, pulses 2+ b/l psych - a/o x 3 Results & Data Results & Data ([facility]) Vital Signs (Past 12 Hours) Vital Signs Temp Pulse Pulse Resp BP Pulse Ox 08/12/21 19:23 36.7 C 78 16 134/84 93 08/12/21 15:13 79 08/12/21 15:05 36.5 C 81 15 159/73 H 95 08/12/21 11:36 36.4 C L 80 19 132/72 95 Laboratory Results Laboratory Results - last 24 hr 08/12/21 08/12/21 08/12/21 05:53 05:53 07:19 Sodium Cancelled Potassium Cancelled Chloride Cancelled Carbon Dioxide Cancelled Anion Gap Cancelled BUN Cancelled Creatinine Cancelled Est Cr Clr Drug Dosing Cancelled Est GFR ( Amer) Cancelled Est GFR (Non-Af Amer) Cancelled BUN/Creatinine Ratio Cancelled Glucose Cancelled POC Glucose 88 Estimat Average Glucose 114 Hemoglobin A1c 5.6 Calcium Cancelled Magnesium Cancelled Troponin I Cancelled 08/12/21 08/12/21 08/12/21 07:26 11:09 15:55 Sodium 136 Potassium 4.6 D Chloride 100 Carbon Dioxide 30 Anion Gap 6.0 BUN 23 H D Creatinine 1.26 Est Cr Clr Drug Dosing 89.2 Est GFR ( Amer) 75.0 Est GFR (Non-Af Amer) 64.7 BUN/Creatinine Ratio 18.0 Glucose 87 POC Glucose 107 H 87 Estimat Average Glucose Hemoglobin A1c Calcium 9.1 Magnesium 2.3 Troponin I < 0.015 08/12/21 20:08 Sodium Potassium Chloride Carbon Dioxide Anion Gap BUN Creatinine Est Cr Clr Drug Dosing Est GFR ( Amer) Est GFR (Non-Af Amer) BUN/Creatinine Ratio Glucose POC Glucose 77 Estimat Average Glucose Hemoglobin A1c Calcium Magnesium Troponin I PG Care Time/CCT Total # of Minutes Spent Total Time Spent with Patient: Total time spent is greater than 50% in coordination of care (as documented) at patient's floor/unit and/or counseling patient: Coding Level of Care Code 77995 Subseq Obs Care Lvl 3 Diagnoses Chest pain R07.9 Diabetes E11.9 HTN (hypertension) I10 Seizure-like activity R56.9 Pituitary neoplasm D49.7 Open toe wound S91.109A DVT prophylaxis Z29.9 Weight gain R63.5 Fluid retention R60.9 Bipolar I disorder F31.9 Panhypopituitarism E23.0 Vertigo R42
[2021-08-12] MEDS ORDERED: MECLIZINE 12.5 MG TAB PO PRN (22:10)
[2021-08-13] MEDS: HEPARIN SOD 5,000 UNIT/0.5 ML VIAL SQ SCH ×3 (05:31→21:04)
[2021-08-13] MEDS: LEVOTHYROXINE SODIUM 175 MCG TABLET PO SCH (05:31)
[2021-08-13] MEDS: NITROGLYCERIN SL 0.4 MG/TAB TAB SL PRN (05:32)
[2021-08-13] MEDS: INSULIN ASPART 100 UNITS/ML 3 ML PEN SC SCH ×4 (07:52→21:05)
[2021-08-13 08:24] LABS: Calcium 9.1 mg/dl (8.5-10.1); Creatinine Clr Calc Pharmacy 82.7 ml/min; Est GFR (Non-African American) 59.5 ml/min; Magnesium 2.5 mg/dl (1.8-2.4); Potassium 4.1 mmol/L (3.5-5.1)
[2021-08-13] MEDS: NICOTINE 21 MG/24 HR TDSY TD SCH (08:30)
[2021-08-13] MEDS: AMOXICILLIN/CLAVULANATE 875 MG TAB PO SCH ×2 (08:30→16:56)
[2021-08-13] MEDS: DESMOPRESSIN ACETATE 0.1 MG TAB PO SCH ×2 (08:30→21:03)
[2021-08-13] MEDS: MULTIVITAMIN TAB PO SCH (08:31)
[2021-08-13] MEDS: DIVALPROEX DELAY RELEASE 500 MG TAB PO SCH ×2 (08:31→21:02)
[2021-08-13] MEDS: lisinopril 5 MG TAB PO SCH (08:31)
[2021-08-13] MEDS: ASPIRIN 81 MG ECTAB PO SCH (08:32)
[2021-08-13] MEDS: GABAPENTIN 400 MG CAP PO SCH ×3 (08:32→21:00)
[2021-08-13] MEDS: HYDROCORTISONE 10 MG TAB PO SCH ×2 (08:33→16:52)
[2021-08-13] MEDS: DULoxetine HCL 30 MG CAP PO SCH (08:33)
[2021-08-13] MEDS: BENZTROPINE MESYLATE 0.5 MG TAB PO SCH ×2 (08:34→21:03)
[2021-08-13] MEDS: CETIRIZINE HCL 10 MG TABLET PO SCH (08:34)
[2021-08-13] MEDS: ARIPiprazole 5 MG TAB PO SCH (08:34)
[2021-08-13] MEDS: CeleBREX 200 MG CAP PO SCH (08:34)
[2021-08-13] MEDS: GABAPENTIN 300 MG CAP PO SCH ×3 (08:35→21:01)
[2021-08-13] MEDS: ALFUZOSIN HCL 10 MG TAB PO SCH (08:36)
[2021-08-13] MEDS: TESTOSTERONE GEL TOP SCH (08:39)
[2021-08-13] MEDS ORDERED: DUTASTERIDE PO SCH (09:00)
[2021-08-13] MEDS ORDERED: FUROSEMIDE 60 MG in SYRINGE 0 ML IV ONE (09:15)
--- NOTE | 2021-08-13 10:27 | Electrocardiogram Report ---
Test Reason : Blood Pressure : / mmHG Vent. Rate : 066 BPM Atrial Rate : 066 BPM P-R Int : 146 ms QRS Dur : 110 ms QT Int : 438 ms P-R-T Axes : 057 008 008 degrees QTc Int : 459 ms Normal sinus rhythm Normal ECG When compared with ECG of 12-AUG-2021 03:28, No significant change was found Confirmed by Garfield Marx ([id number]) on 08/13/2021 10:27:07 AM Referred By: REFERRED SELF Confirmed By:Garfield Marx
--- NOTE | 2021-08-13 13:58 | Pre Anesthesia Assessment ---
Date of Service August 13, 2021 Pre Sedation Assessment Vital Signs Temp Pulse Pulse Resp BP BP Pulse Ox 08/13/21 13:40 72 20 128/97 96 08/13/21 11:21 36.7 C 75 18 120/67 95 08/13/21 08:00 62 08/13/21 07:24 36.5 C 59 L 18 105/72 96 08/13/21 05:43 110/65 08/13/21 05:33 147/85 H 08/13/21 03:31 36.3 C L 69 16 135/92 95 08/12/21 23:42 36.4 C L 66 16 136/81 90 08/12/21 19:23 36.7 C 78 16 134/84 93 08/12/21 15:13 79 08/12/21 15:05 36.5 C 81 15 159/73 H 95 Cardiovascular + regular rate and + regular rhythm Respiratory + respiratory effort normal Pre-Sedation Airway Assessment Smoking Status: Never smoker Hx Sleep Apnea: No Hx Difficult Intubation: No Short, Thick Neck: Yes Thyromental Distance: > or= 3.5 Finger Breadths Oral Cavity: + WNL Mallampati Class: I ASA: ASA2 NPO Status Date of Last Intake of Fluids: 08/12/21 Date of Last Intake of Solid Food: 08/12/21 Procedure Planning Contraindications for Sedation: none Current Medications Reviewed: Yes Notes The planned sedation has been discussed with the patient. Informed Consent was obtained. I have identified the patient, determined the appropriateness of sedation and have assessed the patient immediately prior to the procedure. All medicine(s) and interventions are by my order.
[2021-08-13] MEDS ORDERED: methylPREDNISolone 125 MG/2 ML VIAL ONE (13:59)
[2021-08-13] MEDS ORDERED: diphenhydrAMINE 50 MG/ML VIAL ONE (13:59)
[2021-08-13] MEDS ORDERED: MIDAZOLAM HCL 1 MG/ML 2ML VIAL ONE (13:59)
[2021-08-13] MEDS ORDERED: HEPARIN (PORCINE) 1000 UNIT/ML 10 ML (CATH LAB USE ONLY) ONE (14:00)
[2021-08-13] MEDS ORDERED: niCARdipine HCL INJ 2.5 MG/ML 10 ML AMP ONE (14:00)
[2021-08-13] MEDS ORDERED: fentaNYL citrate 100 MCG/2 ML VIAL ONE (14:00)
[2021-08-13] MEDS ORDERED: NITROGLYCERIN/D5W 100MCG/ML 20ML SYR ONE (14:00)
--- NOTE | 2021-08-13 14:29 | Post Anesthesia Assessment ---
Date of Service August 13, 2021 Post Sedation Assessment Vital Signs Temp Pulse Pulse Resp BP BP Pulse Ox 08/13/21 13:40 72 20 128/97 96 08/13/21 11:21 36.7 C 75 18 120/67 95 08/13/21 08:00 62 08/13/21 07:24 36.5 C 59 L 18 105/72 96 08/13/21 05:43 110/65 08/13/21 05:33 147/85 H 08/13/21 03:31 36.3 C L 69 16 135/92 95 08/12/21 23:42 36.4 C L 66 16 136/81 90 08/12/21 19:23 36.7 C 78 16 134/84 93 08/12/21 15:13 79 08/12/21 15:05 36.5 C 81 15 159/73 H 95 Recovery Score Activity: Moves 4 extremities Respiration: Deep Breath/Cough Circulation: +/-20% PreAnes Value Consciousness: Arouseable (by name) Oxygen Saturation: > 92% On Room Air Discharge Sedation Level of Care: Fast Track Phase II Post Sedation Plan On clinical assessment, the patient appears to have tolerated the sedation without complications. Patient is recovering as anticipated. Patient will continue to be monitored by nursing and may be discharged when sedation discharge criteria are met per below protocol. Upon Completions of procedure up to 15 minutes continue every 5 minute vital signs and the P.A.R. score; then discharge to a Phase I or Fast Track to Phase II per the following guidelines: * Discharge Patient to appropriate Phase II area if PAR is 8 or greater or return to pre- procedure baseline. The post - procedure orders will be as directed. * If PAR score is less than 8 or not return to pre-procedure baseline then patient will follow Phase I monitoring till PAR is reached for Phase II. The Phase I may be done in procedure room or may call to secure a Phase I area. * If naloxone or flumazenil are used for reversal, hold in Phase I for continued monitoring from when last reversal dose was given for a minimum of 60 minutes or longer pending the nurse and/or physician discretion of patient condition before discharge to Phase II. Please call the Sedation Physician to re-evaluate and complete post-note for discharge to Phase II area. Do NOT discharge from procedure sedation or Phase 1 until post- sedation evaluation note is complete by procedure /sedation MD Sedation Discharge Instructions to be given to the patient at discharge to home.
--- NOTE | 2021-08-13 14:29 | Cardiac Catheterization ---
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 Cardiac Status Clinical evaluation leading to the procedure CAD Presenation: Sx unlikely to be ischemic Diagnostic Physicians Name: Glynn Sheth MD Closure Device Recommendations: Medical Therapy and/or Counseling Cardiac Cath Procedure Full Procedure Date August 13, 2021 Pre-Procedure Diagnosis Pre-Procedure Diagnosis: Cardiothoracic Symptom AUC Score AUC Score: 7 Post-Procedure Diagnosis Post-Procedure Diagnosis: Normal Coronary Arteries Procedure(s) Performed Procedure(s) Performed: Coronary Angiography and Left Heart Cath Lead Application Architect Glynn Sheth MD Estimated Blood Loss Estimated Blood Loss: None Medication(s) Medication(s): Diphenhydramine, Fentanyl, Heparin, Lidocaine 1%, Nicardipine, Nitroglycerin and Versed Summary of Findings Procedure performed: Left heart catheterization, selective coronary angiography 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 Stress testing was nondiagnostic and due to recurrent symptoms and risk factors for coronary disease he is felt be good candidate for coronary angiography. Procedure in detail: The patient was informed of the risk benefits and alternatives to the intended procedure. He understood and wished to proceed. He was taken to the cardiac catheterization suite in the fasting state. Conscious sedation was administered per protocol and the patient was monitored electrocardiographically throughout today's procedure. The right wrist was prepped and draped in usual sterile fashion. This area was anesthetized using subcutaneous ministration of lidoc sarabjit solution. The right radial artery was subsequently accessed using modified Seldinger technique and a sheath was placed over guidewire at this site. The sheath was used to felt a passage of the cardiac catheters for selective coronary angiography and left heart catheterization. Images were obtained in multiple orthogonal views prior to removal of the catheter and sheath. Hemostasis was achieved at the access site using manual pressure. The patient tolerated procedure well. There were no immediate complications. Equipment used: 5 [place] 4 Findings: Coronary angiography Left main: Left main coronary artery was normal in size and caliber and bifurcated into the left anterior descending and left circumflex arteries. There was a small diminutive ramus intermedius branch with approximately 50% stenosis in its proximal portion. Left main had no significant disease. Left anterior descending colon left anterior descending was a large transapical vessel which produced only small diminutive agonal branches. There were no discrete obstructive lesions in this distribution Left circumflex: Left circumflex was a very large system which produced a very high branching first OM system, a very large second and third OM branches and an ongoing AV groove vessel. There were no obstructive lesions in this distribution. Right coronary artery: Right coronary artery was a relatively small codominant vessel. It produced a PDA which was somewhat diminutive in its distal portion. However, no obstructive lesions noted in the right coronary distribution. Impression: Codominant coronary system No obstructive coronary disease Normal intracardiac pressures No evidence of aortic stenosis Hemodynamics Rest Ao:: 93/68 mmHg Final Ao: 104/73 mmHg LV: 95/2 millimeters of mercury Left ventricular end-diastolic pressure 7 mmHg Recommendations Recommendations: Medical Therapy and/or Counseling Specimens Specimens: None Radiation Exposure (mGy) 811 Contrast (mls) 60 Procedural Complication(s) None Disposition PCU I attest to the content of the Intraoperative Record and any orders documented therein. Any exceptions are noted below. [facility] Card Cath Procedure Codes Cardiac Catheterization Procedure 1: Cardiovascular Cath Procedures: 87199 Coronaries and LHC (+/-LV) Moderate Sedation Procedure 1: Sedation/Anesthesia: 49174 Mod Sedation by the same physician;Init15 Min Child Age 5 & Up PG Care Time/CCT Total # of Minutes Spent Total Time Spent with Patient: Total time spent is greater than 50% in coordination of care (as documented) at patient's floor/unit and/or counseling patient:
--- NOTE | 2021-08-13 14:42 | Cardiology Consultation ---
Date of Consultation August 13, 2021 Assessment & Plan (1) Chest pain: (2) Diabetes: (3) HTN (hypertension): (4) Leg edema: Patient with multiple vascular risk factors and negative but suboptimal stress echocardiogram yesterday as ongoing exertional and now rest chest pain as well as a history of volume retention/presumed heart failure with preserved ejection fraction. Very reasonable to proceed to cardiac catheterization to exclude significant coronary artery disease as a contributing factor for his chest pain as well as heart failure. Further recommendations based on results of cardiac catheterization. History of Present Illness Reason for Consultation: ?CAD Requesting Physician: Trenton Owens Attending Physician: Trenton Owens History of Present Illness 51-year-old man with pituitary insufficiency, diabetes mellitus (oral agents), heart failure with preserved ejection fraction (followed by Dr. Phillips), who was admitted 08/11/2021 with progressive exertional dyspnea and exertional chest discomfort. Cardiac enzymes and ECGs were unrevealing. He underwent a stress echocardiogram but achieved only 70% maximum predicted heart rate, no ECG or echocardiographic abnormalities but he did develop exertional chest pain on the treadmill. He had another episode of chest discomfort at rest overnight. Given unexplained congestive heart failure prompting frequent ER visits as well as recurrent exertional chest discomfort and patient with multiple vascular risk factors, when discussing options the patient felt that proceeding to cardiac catheterization would be his preferred option. Allergies Allergy/AdvReac Type Severity Reaction Status Date / Time Iodinated Contrast Media Allergy Unknown face/eye Verified 08/11/21 13:19 swelling Quinolones Allergy Unknown HIVES Verified 08/11/21 13:19 Home Medications Medication Instructions Recorded Confirmed Type naproxen 500 mg tablet 500 mg PO Q12H PRN #60 tab 06/15/19 08/11/21 History multivitamin 1 tab PO QAM 07/12/19 08/11/21 History cyclobenzaprine 10 mg tablet 10 mg PO BID PRN 30 Days #60 tab 09/18/20 08/11/21 Rx celecoxib 200 mg capsule 200 mg PO QAM 02/23/21 08/11/21 History rizatriptan 10 mg disintegrating 10 mg PO DIRECTED PRN 02/23/21 08/11/21 History tablet levothyroxine 175 mcg tablet 175 mcg PO QAM #90 tab 04/10/21 08/11/21 Rx benztropine 0.5 mg tablet 0.5 mg PO BID 04/19/21 08/11/21 History propranolol 160 mg capsule,24 160 mg PO HS #30 cap 04/28/21 08/11/21 Rx hr,extended release lorazepam 0.5 mg tablet 0.5 mg PO BID PRN 05/11/21 08/11/21 History zolmitriptan 5 mg tablet (Zomig) 5 mg PO DIRECTED PRN 05/11/21 08/11/21 History testosterone 20.25 mg/1.25 gram 2 pump TOP PM #75 g 05/20/21 08/11/21 Rx (1.62 %) transdermal gel pump diclofenac sodium 1 % topical gel 4 g TOPICAL QID PRN 06/09/21 08/11/21 History somatropin 5 mg/1.5 mL (3.3 mg/mL) 0.3 mg SQ PM #3 ml 06/22/21 08/11/21 Rx subcutaneous pen injector (Norditropin FlexPro) furosemide 40 mg tablet (Lasix) 60 mg PO DAILY 07/10/21 08/11/21 History alfuzosin 10 mg tablet,extended 10 mg PO DAILY tab 07/16/21 08/11/21 History release 24 hr dutasteride 0.5 mg capsule 0.5 mg PO DAILY #90 cap 07/16/21 08/11/21 Rx (Avodart) fluticasone propionate 50 1 spray INTRANASAL BID PRN #16 g 07/21/21 08/11/21 Rx mcg/actuation nasal spray,suspension (Flonase Allergy Relief) desmopressin 0.2 mg tablet 0.2 mg PO BID #60 tab 07/23/21 08/11/21 Rx albuterol sulfate 90 mcg/actuation 1 inh INHALATION QID PRN 07/28/21 08/11/21 History aerosol inhaler hydrocortisone 10 mg tablet 10 - 20 mg PO DAILY 07/28/21 08/11/21 History propranolol 20 mg tablet 20 mg PO UD PRN 07/28/21 08/11/21 History cephalexin 500 mg capsule 500 mg PO BID 10 Days #20 cap 08/05/21 08/11/21 Rx cetirizine 10 mg tablet (Zyrtec) 10 mg PO BID #60 tab 08/05/21 08/11/21 Rx lisinopril 5 mg tablet 5 mg PO DAILY #30 tab 08/05/21 08/11/21 Rx blood pressure monitor #1 ea 08/06/21 Rx aripiprazole 5 mg tablet 5 mg PO DAILY 08/11/21 08/11/21 History divalproex 500 mg tablet,delayed 1,000 mg PO BID 08/11/21 08/11/21 History release (Depakote) duloxetine 30 mg capsule,delayed 30 mg PO DAILY 08/11/21 08/11/21 History release gabapentin 300 mg capsule 300 mg PO TID 08/11/21 08/11/21 History gabapentin 400 mg capsule 400 mg PO TID 08/11/21 08/11/21 History galcanezumab-gnlm 120 mg/mL 120 mg SQ Q4WK #1 ml 08/11/21 08/11/21 Rx subcutaneous pen injector (Emgality Pen) Patient History Medical History Bipolar I disorder Bladder mass benign BPH with obstruction/lower urinary tract symptoms Depression Diverticular disease Growth hormone deficiency Hematuria resolved Insomnia Kidney stones HX Lumbar radiculopathy Lumbar spine pain Migraine without aura and without status migrainosus, not intractable Obstructive sleep apnea of adult cpap Pituitary diabetes insipidus Pituitary hypogonadism Pituitary hypothyroidism Pituitary neoplasm Prostate mass benign Secondary adrenal insufficiency Seizure disorder last seizure 01/2021 > (non epileptic) gets grand mal 3-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 last grand mal Oct 2020 > follows Dr. José Luis LERNER (shortness of breath) on exertion Thrombocytopenia Tremor Surgical History History of bladder surgery remove mass History of brain surgery x2---2004 @ [facility] – [place], 2016 @ [facility]--for brain tumors History of colonoscopy History of esophagogastroduodenoscopy (EGD) History of lithotripsy History of prostate surgery remove mass History of tooth extraction History of wisdom tooth extraction S/P epidural steroid injection Status post right foot surgery replaced 5th metatarsal--hardware in place Family History Grandmother (Paternal) Family history of diabetes mellitus Aunt Family history of diabetes mellitus Uncle Family history of diabetes mellitus Father Prostate cancer Heart disease Mother Cardiac disorder Grandmother (Maternal) Myocardial infarction Other No family history of adverse response to anesthesia Denies family history of Ovarian cancer Breast cancer Colorectal cancer Social History Smoking Status: Never smoker Second Hand Exposure: Yes; Do You Dip or Chew Tobacco: Yes; Tobacco Cessation Education Requested by Patient: No Hx Alcohol Use: No Hx Substance Use: No Preferred Language: Hebrew Communication Ability: Effective Visual Impairment: No Limitations Hearing Ability: Normal Manager Core Required: No Beliefs That Will Affect Care: None marital status: Legally Current Living Situation: Alone current occupational status: unemployed Other Information That Helps Us Care for You: No Feels Safe at Home: Yes Safety Concerns: Feels Safe At This Time Childhood Exposure to Second-Hand Smoke: Yes (parents smoked) Seatbelt Use: always Assistive Devices: None Physical Exam Physical Exam: Large frame, moderately obese middle-aged white male in no distress. Afebrile. Normotensive. Pulse 72 bpm and regular. Skin: no ecchymoses or generalized lesions. HEENT: unremarkable. Neck: no JVD or carotid bruits. Lungs: clear. Cardiac: regular rhythm, no murmur or gallop. Abdomen: benign. Extremities: 1-2+ pretibial edema edema, pulses intact. Neurologic: normal affect, nonfocal. Results & Data ([facility]) Laboratory Results Troponin negative x3. Normal CBC. Normal electrolytes, BUN 32, creatinine 1.35. Diagnostic Findings ECG showed sinus rhythm at 73 bpm and was unremarkable. Chest x-ray on admission was unremarkable. Stress echo showed no ECG or echocardiographic wall motion abnormalities at 70% maximum predicted heart rate. Patient did develop chest discomfort. Resting echo showed EF 55 to 60% with normal LV wall thickness, mild mitral regurgitation, normal left atrial size. PG Care Time/CCT Total # of Minutes Spent Total Time Spent with Patient: Total time spent is greater than 50% in coordination of care (as documented) at patient's floor/unit and/or counseling patient: Coding Level of Care Code 70564 Inpt Consult Level 4 Diagnoses Chest pain R07.9 Diabetes E11.9 HTN (hypertension) I10 Leg edema R60.0
[2021-08-13] MEDS ORDERED: Nursing to Pharmacy Communication SCH (19:00)
[2021-08-13] MEDS: DUTASTERIDE PO SCH (20:59)
[2021-08-13] MEDS: PROPRANOLOL HCL 60 MG LA CAP PO SCH (21:01)
[2021-08-13] MEDS: SOMATROPIN SQ SCH (21:09)
--- NOTE | 2021-08-13 21:46 | Hospitalist Progress Note ---
Date of Service August 13, 2021 Assessment & Plan (1) Chest pain: Plan: Trops negative this admission. s/p cardiac cath today - nonobstructive CAD. * ramus intermedius branch with approximately 50% stenosis in its proximal portion * L main, L Cx, LAD, RCA all free of disease * intra-cardiac pressures wnl Thus, pain is noncardiac. Plan for CT chest tomorrow. Check a dimer. If dimer is negative then make CT chest with contrast to r/o VTE. (2) Weight gain: Plan: Patient was ~105kg in February 2021. At time of admission he was ~120kg. I suspect this is indeed fluid weight gain. He states that by April he was having significant LE edema. At that time lasix was started and he has been taking lasix since that time. Of note - pharmacy records suggest he was started on Abilify in February. It is possible that the Abilify is contributing to fluid retention/weight gain. Cannot exclude gabapentin contributing to edema. Cannot exclude NSAID use (celebrex). No evidence of liver disease, decompensated hypothyroidism, renal disease, severe hypoalbuminemia. Received IV lasix yesterday; will give lasix IV again today. In light of cardiac cath findings and normal pressures I suspected he does NOT have diastolic CHF/dysfunction. (3) Fluid retention: Plan: See above in #1, #2. Lasix 60mg IV x 1 again today. Cont to hold PO lasix. BMP am. (4) Diabetes: Plan: Recent HbA1C was <6%. BSGs here have been excellent but he had had labile BSGs, per his report, at home. Continue to monitor. (5) HTN (hypertension): Plan: BPs have improved with simply placing him on home regimen and diuresing him. Continue to follow. (6) Seizure-like activity: Plan: Cont Depakote and gabapentin. Most recent depakote level was wnl. (7) Pituitary neoplasm: Plan: Pituitary tumor was first diagnosed in 2001 and subsequently treated at [facility]. Received surgery and radiation. Had vision loss with some improvement thereafter. By report pathology was nondiagnostic. Repeat surgery in [place] - 2016 - after recurrence was seen on imaging. No issues with pituitary since then. 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 (8) Panhypopituitarism: Plan: see above (9) Open toe wound: Plan: great toe - continue augmentin (10) DVT prophylaxis: Plan: heparin 7500 units TID (11) Bipolar I disorder: Plan: cont usual outpatient meds (12) Vertigo: Plan: patient reports 3-4 brief episodes of vertigo brought on by movement over the last few weeks. he has a known arachnoid cyst of the posterior fossa and this was seen on CT head in 2020. consider MRI brain to ensure the cyst is not contributing to his vertigo. meclizine prn in meantime. Plan: change observation status to full admission status Admission and Anticipated Discharge Date Admission Date: August 11, 2021 Subjective overnight no events he walked in hallway - perhaps 4 laps - by the end he was having dyspnea but no chest pain slated for heart cath today - seen by Dr Marx and he recommended such during the visit he was laying completely flat in bed w/o orthopnea no PND overnight LE edema improved today Review of Systems Review of Systems: gen - no fevers or chills, eating well HEENT - hoarse voice, started a few days ago CV - no chest pain while hospitalized pulm - no cough, just SCOTT; no orthopnea or PND Physical Exam Physical Exam: gen - obese, NAD HEENT - mouth, MMM; hoarse voice neck - JVD resolved heart - RRR, s1 s2, no murmur lungs - mild decreased BS bases, no rales, no wheeze, no increased work of breathing abd - soft NT ND BS+ ext - 1+ edema b/l, pulses 2+ b/l psych - a/o x 3 Results & Data Results & Data ([facility]) Vital Signs (Past 12 Hours) Vital Signs Temp Pulse Pulse Resp BP BP Pulse Ox 08/13/21 19:30 36.5 C 82 18 126/83 92 08/13/21 18:44 80 18 134/69 93 08/13/21 17:44 83 133/82 94 08/13/21 16:44 77 137/87 92 08/13/21 15:45 69 18 107/72 96 08/13/21 15:43 66 08/13/21 15:15 67 107/66 94 08/13/21 15:00 70 18 119/72 95 08/13/21 14:43 72 20 133/76 91 08/13/21 14:31 70 20 134/94 93 08/13/21 13:40 72 20 128/97 96 08/13/21 11:21 36.7 C 75 18 120/67 95 Laboratory Results Laboratory Results - last 24 hr 08/13/21 08/13/21 08/13/21 07:21 07:30 10:58 Sodium 137 Potassium 4.1 Chloride 98 Carbon Dioxide 35 H Anion Gap 5.0 BUN 32 H Creatinine 1.35 Est Cr Clr Drug Dosing 82.7 Est GFR ( Amer) 69.0 Est GFR (Non-Af Amer) 59.5 BUN/Creatinine Ratio 24.0 H Glucose 79 POC Glucose 80 96 Calcium 9.1 Magnesium 2.5 H AST 21 ALT 65 08/13/21 08/13/21 16:36 20:18 Sodium Potassium Chloride Carbon Dioxide Anion Gap BUN Creatinine Est Cr Clr Drug Dosing Est GFR ( Amer) Est GFR (Non-Af Amer) BUN/Creatinine Ratio Glucose POC Glucose 106 H 143 H Calcium Magnesium AST ALT PG Care Time/CCT Total # of Minutes Spent Total Time Spent with Patient: Total time spent is greater than 50% in coordination of care (as documented) at patient's floor/unit and/or counseling patient: Coding Level of Care Code 59569 Subseq Hosp Care Lvl 2 Diagnoses Chest pain R07.9 Weight gain R63.5 Fluid retention R60.9 Diabetes E11.9 HTN (hypertension) I10 Seizure-like activity R56.9 Pituitary neoplasm D49.7 Panhypopituitarism E23.0 Open toe wound S91.109A DVT prophylaxis Z29.9 Bipolar I disorder F31.9 Vertigo R42
[2021-08-14] MEDS: HEPARIN SOD 5,000 UNIT/0.5 ML VIAL SQ SCH ×3 (04:50→19:48)
[2021-08-14] MEDS: LEVOTHYROXINE SODIUM 175 MCG TABLET PO SCH (04:50)
[2021-08-14] MEDS: NITROGLYCERIN SL 0.4 MG/TAB TAB SL PRN (05:34)
[2021-08-14 07:44] LABS: D Dimer 360 ug/L FEU (0-500)
[2021-08-14 07:47] LABS: BUN Creatinine Ratio 26.3 (10-20); Calcium 9.3 mg/dl (8.5-10.1); Creatinine Clr Calc Pharmacy 69.9 ml/min; Est GFR (African American) 56.2 ml/min; Est GFR (Non-African American) 48.5 ml/min; Magnesium 2.5 mg/dl (1.8-2.4); Potassium 4.7 mmol/L (3.5-5.1)
--- NOTE | 2021-08-14 08:20 | Pharmacy Report ---
Pharmacy Glycemic Sign Off Nt - Date of Service August 14, 2021 - Assessment & Plan ASSESSMENT: * Pharmacy was consulted by Dr Willingham on 08/11/21 for glycemic control and to write orders per [facility] inpatient glycemic control protocol. * Major changes made by pharmacy to antidiabetic regimen include: * addition of Novolog with adjustments * Patient has been receiving/requiring ~15-20 units of insulin per day for adequate glycemic control * BSGs ranging 77 - 143 mg/dl * Regimen has only required minor adjustments over the past 48hrs to achieve this level of control * Do not anticipate further changes in patient status that would quickly deteriorate glycemic control (i.e. patient to be NPO for upcoming procedure, steroids tapering, starting tube feedings, etc). * Please see recommendations for outpatient antidiabetic regimen below. PLAN FOR INPATIENT GLYCEMIC CONTROL: No changes needed to current regimen. * Continue to hold basal insulin * Continue NovoLog per scale ACHS/Q6hrs while NPO * Goal range = 110 140 mg/dl * CF = 30 mg/dl/unit * CR = 1 unit for ever 10 g CHO consumed * Pharmacy is signing off of glycemic consult and will no longer be making adjustments to inpatient regimen. Please feel free to re-consult if needed. Thank you. DISCHARGE RECOMMENDATIONS: * A1c 5.7 % on 08/05/21 * Will not require any antidiabetic medications on discharge
[2021-08-14] MEDS: DULoxetine HCL 30 MG CAP PO SCH (08:37)
[2021-08-14] MEDS: BENZTROPINE MESYLATE 0.5 MG TAB PO SCH ×2 (08:38→19:49)
[2021-08-14] MEDS: DESMOPRESSIN ACETATE 0.1 MG TAB PO SCH ×2 (08:39→19:51)
[2021-08-14] MEDS: ASPIRIN 81 MG ECTAB PO SCH (08:39)
[2021-08-14] MEDS: MULTIVITAMIN TAB PO SCH (08:39)
[2021-08-14] MEDS: lisinopril 5 MG TAB PO SCH (08:41)
[2021-08-14] MEDS: ALFUZOSIN HCL 10 MG TAB PO SCH (08:41)
[2021-08-14] MEDS: DIVALPROEX DELAY RELEASE 500 MG TAB PO SCH ×2 (08:41→19:50)
[2021-08-14] MEDS: ARIPiprazole 5 MG TAB PO SCH (08:41)
[2021-08-14] MEDS: CETIRIZINE HCL 10 MG TABLET PO SCH (08:42)
[2021-08-14] MEDS: CeleBREX 200 MG CAP PO SCH (08:42)
[2021-08-14] MEDS: GABAPENTIN 300 MG CAP PO SCH ×3 (08:42→19:51)
[2021-08-14] MEDS: AMOXICILLIN/CLAVULANATE 875 MG TAB PO SCH ×2 (08:43→16:53)
[2021-08-14] MEDS: GABAPENTIN 400 MG CAP PO SCH ×3 (08:44→19:50)
[2021-08-14] MEDS: NICOTINE 21 MG/24 HR TDSY TD SCH (08:45)
[2021-08-14] MEDS: HYDROCORTISONE 10 MG TAB PO SCH ×2 (08:45→14:14)
[2021-08-14] MEDS: INSULIN ASPART 100 UNITS/ML 3 ML PEN SC SCH ×5 (08:47→21:14)
--- NOTE | 2021-08-14 11:06 | CT Scan Report ---
CT chest diagnostic wo con INDICATION: [place] ^0915 ^dyspnea, chest pains; eval intrathoracic pathology. TECHNIQUE: Multidetector row helical CT of the chest was performed. Coronal and sagittal reformations were obtained. Automated dose lowering techniques and/or adjustment according to patient size were u tilized for this exam. Comparison: Comparison is made to a chest 07/10/2020 FINDINGS: Lungs and pleura: Normal. Heart and pericardium: Heart size is normal. No pericardial effusion. Vessels: Mild atherosclerotic changes in the aorta and coronary arteries. Mediastinum and maureen: Unremarkable. Chest wall and lower neck: Unremarkable. Abdomen: A hiatal hernia is seen. Bones: Degenerative changes in the thoracic spine. IMPRESSION: Unremarkable evaluation of the chest. ACT 112: Negative or not required by law. Electronically signed by: David Ramirez M.D. 08/14/2021 11:05 AM
--- NOTE | 2021-08-14 14:12 | Cardiology Progress Note ---
Date of Service August 14, 2021 Assessment & Plan (1) Nonocclusive coronary atherosclerosis of [place] coronary artery: (2) Chest pain: (3) Diabetes: (4) HTN (hypertension): (5) Leg edema: Plan: Very minimal coronary atherosclerosis, insufficient to be causing anginal symptoms or heart failure. Would recommend remaining on aspirin and adding a statin to his regimen (statin could be added as an outpatient). His creatinine is slightly elevated after receiving diuretics and contrast agent yesterday, given normal to low left ventricular end-diastolic pressure would not have him take routine diuretics but rather would place on sliding scale regimen (taking his furosemide 60 mg only if he gains more than 3 pounds over his current weight). Will arrange follow-up with Sierra Fernandez PA-C in heart failure clinic for further monitoring of volume status and adjustment of diuretic. Etiology of his chest pain is uncertain, but it does seem to have benefit from nitroglycerin. Although this will falsely stigmatized him as having more significant coronary disease, reasonable to give a sublingual nitroglycerin prescription for symptomatic relief (of esophageal spasm?, Coronary vasospasm? Placebo? ). Cardiology follow-up with Sierra Fernandez PA-C and Rene Phillips MD. Admission and Anticipated Discharge Date Admission Date: August 13, 2021 Subjective He was doing well today, able to walk about the hallway without angina or excessive dyspnea. Cardiac catheterization showed only minor/nonocclusive atherosclerosis (50% stenosis in small ramus intermedius) and normal left ventricular end-diastolic pressure. Physical Exam Physical Exam: Large frame, moderately obese middle-aged white male in no distress. Afebrile. Normotensive. Pulse 74 bpm and regular. Skin: no ecchymoses or generalized lesions. HEENT: unremarkable. Neck: Jugular venous pulse at the clavicle at 90 degrees, no carotid bruits. Lungs: clear. Cardiac: regular rhythm, no murmur or gallop. Abdomen: benign. Extremities: 1+ pretibial edema edema, pulses intact. Right radial access site benign, no hematoma. Neurologic: normal affect, nonfocal. Results & Data ([facility]) Laboratory Results Sodium 133, otherwise normal electrolytes, BUN 42, creatinine 1.6 (up from 1.35). PG Care Time/CCT Total # of Minutes Spent Total Time Spent with Patient: Total time spent is greater than 50% in coordination of care (as documented) at patient's floor/unit and/or counseling patient: Coding Level of Care Code 98363 Subseq Hosp Care Lvl 3 Diagnoses Chest pain R07.9 Diabetes E11.9 HTN (hypertension) I10 Leg edema R60.0 Nonocclusive coronary atherosclerosis of [place] coronary artery I25.10
[2021-08-14] MEDS ORDERED: POLYETHYLENE (MIRALAX) 17 GM PACK PO ONE (18:45)
[2021-08-14] MEDS: DUTASTERIDE PO SCH (19:48)
[2021-08-14] MEDS: HYDROCORTISONE ACETATE 25 MG SUPP PR SCH (19:49)
[2021-08-14] MEDS: TESTOSTERONE GEL TOP SCH (19:52)
[2021-08-14] MEDS: PROPRANOLOL HCL 60 MG LA CAP PO SCH (19:54)
[2021-08-14] MEDS: SOMATROPIN SQ SCH (19:54)
--- NOTE | 2021-08-14 21:34 | Hospitalist Progress Note ---
Date of Service August 14, 2021 Assessment & Plan (1) Chest pain: Plan: Trops negative this admission. s/p cardiac cath - largely normal, minimal nonobstructive CAD. * ramus intermedius branch with approximately 50% stenosis in its proximal portion - only vessel w/ plaque * L main, L Cx, LAD, RCA all free of disease * intra-cardiac pressures wnl Thus, pain is noncardiac. d-dimer negative. recent LE dopplers negative for DVT. CT chest COMPLETELY normal today (no contrast given, but suspicion for PE is very low). Some of his symptoms are at rest - GERD? other? Empiric PPI. f/u cardiology after discharge. (2) Weight gain: Plan: Patient was ~105kg in February 2021. At time of admission he was ~120kg. I suspect this is indeed fluid weight gain. He states that by April he was having significant LE edema. At that time lasix was started and he has been taking lasix since then. Of note - pharmacy records suggest he was started on Abilify in February. It is possible that the Abilify is contributing to fluid retention/weight gain. Cannot exclude gabapentin contributing to edema. Cannot exclude NSAID use (celebrex). No evidence of liver disease, decompensated hypothyroidism, renal disease, severe hypoalbuminemia. s/p diuresis x 3 days. Cr vivian today - he is intravascularly volume depleted now; stop diuresis. In light of cardiac cath findings and normal pressures on the heart cath -- does he really have diastolic dysfunction? Or, alternatively, is his edema due to medications (abilify, depakote, etc)? venous insufficiency? other? will have him f/u with Sierra Fernandez in CHF clinic to try to determine if he truly has diastolic dysfunction/diastolic CHF or not. (3) Fluid retention: Plan: See above in #1, #2. (4) Diabetes: Plan: Recent HbA1C was <6%. BSGs here have been excellent but he had had labile BSGs, per his report, at h ome. Continue to monitor. He asked today if I would prescribe insulin at d/c. In light of rock-solid BSGs here, normal a1c, etc I would be heavily reluctant to do so. We gave him a new meter and perhaps his old meter was spurious? Will have him f/u with Dr Voss post d/c. (5) HTN (hypertension): Plan: BPs acceptable. (6) Seizure-like activity: Plan: Cont Depakote and gabapentin. Most recent depakote level was wnl. (7) Pituitary neoplasm: Plan: Pituitary tumor was first diagnosed in 2001 and subsequently treated at [facility]. Received surgery and radiation. Had vision loss with some improvement thereafter. By report pathology was nondiagnostic. Repeat surgery in [place] - 2016 - after recurrence was seen on imaging. No issues with pituitary since then. 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 (8) Panhypopituitarism: Plan: see above (9) Open toe wound: Plan: great toe - continue augmentin the toenail is ingrown - needs to see podiatry (10) DVT prophylaxis: Plan: heparin 7500 units TID (11) Bipolar I disorder: Plan: cont usual outpatient meds (12) Vertigo: Plan: patient reports 3-4 brief episodes of vertigo brought on by movement over the last few weeks. he has a known arachnoid cyst of the posterior fossa and this was seen on CT head in 2020. consider MRI brain to ensure the cyst is not contributing to his vertigo. meclizine prn in meantime. Plan: hemorrhoid - anusol suppos TID x 7 days repeat BMP am d/c home if Cr is stable/improved Admission and Anticipated Discharge Date Admission Date: August 13, 2021 Subjective pt states he had chest pain today - mainly in his throat region - was at rest no exertional symptoms however no dyspnea today no orthopnea today despite copious diuresis his Cr vivian overnight and he still has LE edema today started having mild "clots" with staining at stool has had hemorrhoids before he had numerous questions about his plan of care, ?diastolic dysfunction, c hronic vertigo, etc Review of Systems Review of Systems: gen - eating well, energy ok CV - see HPI pulm - no cough GI - some heartburn, but no nausea/emesis; blood in stool today with straining Physical Exam Physical Exam: gen - obese, NAD HEENT - mouth - MMM; hoarse voice similar to yesterday neck - no JVD heart - RRR, s1 s2, no murmur lungs - CTA b/l; no rales, no wheeze, no increased work of breathing abd - soft NT ND BS+ ext - 1+ edema b/l, pulses 2+ b/l psych - a/o x 3 rectal - large hemorrhoid at 6 o'clock, tender, tiny bit of bright red blood, no fecal masses or fecal impaction; prostate not assessed Results & Data Results & Data ([facility]) Vital Signs (Past 12 Hours) Vital Signs Temp Pulse Pulse Resp BP Pulse Ox 08/14/21 18:50 36.6 C 80 17 128/74 93 08/14/21 16:15 36.5 C 88 18 125/67 96 08/14/21 12:00 36.6 C 74 22 130/80 93 08/14/21 09:49 73 Laboratory Results Laboratory Results - last 24 hr 08/14/21 08/14/21 08/14/21 06:53 06:53 07:07 D-Dimer 360 Sodium 133 L Potassium 4.7 Chloride 96 L Carbon Dioxide 31 Anion Gap 6.0 BUN 42 H Creatinine 1.60 H Est Cr Clr Drug Dosing 69.9 Est GFR ( Amer) 56.2 Est GFR (Non-Af Amer) 48.5 BUN/Creatinine Ratio 26.3 H Glucose 130 H POC Glucose 121 H Calcium 9.3 Magnesium 2.5 H 08/14/21 08/14/21 08/14/21 11:07 16:41 20:04 D-Dimer Sodium Potassium Chloride Carbon Dioxide Anion Gap BUN Creatinine Est Cr Clr Drug Dosing Est GFR ( Amer) Est GFR (Non-Af Amer) BUN/Creatinine Ratio Glucose POC Glucose 118 H 140 H 127 H Calcium Magnesium PG Care Time/CCT Total # of Minutes Spent Total Time Spent with Patient: Total time spent is greater than 50% in coordination of care (as documented) at patient's floor/unit and/or counseling patient: Coding Level of Care Code 42080 Subseq Hosp Care Lvl 3 Diagnoses Chest pain R07.9 Weight gain R63.5 Fluid retention R60.9 Diabetes E11.9 HTN (hypertension) I10 Seizure-like activity R56.9 Pituitary neoplasm D49.7 Panhypopituitarism E23.0 Open toe wound S91.109A DVT prophylaxis Z29.9 Bipolar I disorder F31.9 Vertigo R42
[2021-08-15] MEDS: LORazepam 0.5 MG TAB PO PRN (04:31)
[2021-08-15] MEDS: LEVOTHYROXINE SODIUM 175 MCG TABLET PO SCH (04:54)
[2021-08-15] MEDS: RIZATRIPTAN BENZOATE MLT 10 MG TAB PO PRN (04:54)
[2021-08-15] MEDS: HEPARIN SOD 5,000 UNIT/0.5 ML VIAL SQ SCH (04:59)
[2021-08-15] MEDS: DULoxetine HCL 30 MG CAP PO SCH (07:56)
[2021-08-15] MEDS: GABAPENTIN 400 MG CAP PO SCH (07:57)
[2021-08-15] MEDS: DIVALPROEX DELAY RELEASE 500 MG TAB PO SCH (07:57)
[2021-08-15] MEDS: ASPIRIN 81 MG ECTAB PO SCH (07:58)
[2021-08-15] MEDS: CETIRIZINE HCL 10 MG TABLET PO SCH (07:58)
[2021-08-15] MEDS: BENZTROPINE MESYLATE 0.5 MG TAB PO SCH (07:58)
[2021-08-15] MEDS: ALFUZOSIN HCL 10 MG TAB PO SCH (07:59)
[2021-08-15] MEDS: MULTIVITAMIN TAB PO SCH (07:59)
[2021-08-15] MEDS: HYDROCORTISONE ACETATE 25 MG SUPP PR SCH (07:59)
[2021-08-15] MEDS: HYDROCORTISONE 10 MG TAB PO SCH (07:59)
[2021-08-15] MEDS: GABAPENTIN 300 MG CAP PO SCH (08:00)
[2021-08-15] MEDS: CeleBREX 200 MG CAP PO SCH (08:00)
[2021-08-15] MEDS: AMOXICILLIN/CLAVULANATE 875 MG TAB PO SCH (08:00)
[2021-08-15] MEDS: ARIPiprazole 5 MG TAB PO SCH (08:00)
[2021-08-15] MEDS: DESMOPRESSIN ACETATE 0.1 MG TAB PO SCH (08:00)
[2021-08-15] MEDS: NICOTINE 21 MG/24 HR TDSY TD SCH (08:01)
[2021-08-15] MEDS: INSULIN ASPART 100 UNITS/ML 3 ML PEN SC SCH (08:03)
[2021-08-15] MEDS ORDERED: POLYETHYLENE (MIRALAX) 17 GM PACK PO SCH (09:00)
[2021-08-15] MEDS ORDERED: PANTOprazole 40 MG TAB PO SCH (09:00)
[2021-08-15 09:21] LABS: BUN Creatinine Ratio 27.9 (10-20); Calcium 9.1 mg/dl (8.5-10.1); Creatinine Clr Calc Pharmacy 74.1 ml/min; Est GFR (African American) 60.2 ml/min
--- NOTE | 2021-08-15 10:57 | Discharge Summary ---
Date of Service date of admission - August 11, 2021 date of discharge - August 15, 2021 Admission HPI Per Admitting Provider 51 M with history of pituitary insufficiency and diabetes, followed by Dr Phillips for HFpEF, presents with SCOTT that is associated with chest pain and some jose martin phoresis. Lasting 30 minutes relieved with rest Pt does have some weight gain but does not have pulmonary edema seen on CXR nor does he have JVD. He has increased lower extremity edema, has a R great toe that is being treated with Keflex for what appears to be an ingrown nail, and according to daughter has had marked glucose intolerance for the last few weeks, typically managed by Dr Amaral for diabetes but sees Dr Voss for his pituitary issues. In the ER Troponin is negative and ECG is without ST changes. Principal Diagnosis 1. dyspnea - resolved pulmonary edema? 2. chest pain - noncardiac, negative heart catheterization 3. ingrown toenail, right great toe 4. cazares-hypopituitarism Discharge Exam Gen: NAD, obese , a/o x 3 Neck: no JVD Heart: RRR, s1 s2, no murmur Lungs: CTA b/l Abd: soft, NT, ND, BS+, no HSM Ext: 1-2+ edema b/l, pulses 2+ b/l Psych: a/o x 3 Skin: right great toenail - ingrown, no active onychia or toe cellulitis Discharge Data Allergies Allergy/AdvReac Type Severity Reaction Status Date / Time Iodinated Contrast Media Allergy Unknown face/eye Verified 08/19/21 12:03 swelling Quinolones Allergy Unknown HIVES Verified 08/19/21 12:03 Consultations [facility] Procedures Performed Exercise Stress Echocardiogram - * suboptimal stress test due to inadequate maximum heart rate * exercise capacity below average * stress EKG response was normal * stress wall motion was normal * patient reported substernal chest pressure at peak exertion which resolved 5- 10 minutes into recovery * no temporarily associated EKG changes or wall motion abnormalities during chest symptoms * LV function wnl - EF 55-60% * normal valvular function Operation Date: 08/13/21 15:00 Actual Procedures s Cineradiography w/Routine Exam - Glynn Sheth MD p Cath, Left with Cors and Vent - Glynn Sheth MD Coronary angiography Left main: Left main coronary artery was normal in size and caliber and bifurcated into the left anterior descending and left circumflex arteries. There was a small diminutive ramus intermedius branch with approximately 50% stenosis in its proximal portion. Left main had no significant disease. Left anterior descending colon left anterior descending was a large transapical vessel which produced only small diminutive agonal branches. There were no discrete obstructive lesions in this distribution Left circumflex: Left circumflex was a very large system which produced a very high branching first OM system, a very large second and third OM branches and an ongoing AV groove vessel. There were no obstructive lesions in this distribution. Right coronary artery: Right coronary artery was a relatively small codominant vessel. It produced a PDA which was somewhat diminutive in its distal portion. However, no obstructive lesions noted in the right coronary distribution. Ordered Studies Chest X-Ray 08/11/21 11:31 XR chest 1V portable HISTORY: 51 years-old Male Chest Pain acute atypical chest pain COMPARISON: Chest radiograph and chest CT 07/10/2021 TECHNIQUE: Portable AP view of the chest FINDINGS: Cardiac silhouette is upper limits of normal in size. Prominence of the interstitium is likely secondary to patient body habitus. No pneumothorax, pleural effusion, airspace consolidation or overt pulmonary edema. Mild blunting of the costophrenic angles, likely from atelectasis. Healed chronic left mid clavicular fracture deformity. No acute fracture. IMPRESSION: No acute process. ACT 112: Negative or not required by law. The above report was generated using voice recognition software. It may contain grammatical, syntax or spelling errors. Electronically signed by: Bean Tolentino M.D. 08/11/2021 11:[address] 08/14/21 08:07 CT chest diagnostic wo con INDICATION: [place] ^0915 ^dyspnea, chest pains; eval intrathoracic pathology. TECHNIQUE: Multidetector row helical CT of the chest was performed. Coronal and sagittal reformations were obtained. Automated dose lowering techniques and/or adjustment according to patient size were utilized for this exam. Comparison: Comparison is made to a chest 07/10/2020 FINDINGS: Lungs and pleura: Normal. Heart and pericardium: Heart size is normal. No pericardial effusion. Vessels: Mild atherosclerotic changes in the aorta and coronary arteries. Mediastinum and maureen: Unremarkable. Chest wall and lower neck: Unremarkable. Abdomen: A hiatal hernia is seen. Bones: Degenerative changes in the thoracic spine. IMPRESSION: Unremarkable evaluation of the chest. ACT 112: Negative or not required by law. Electronically signed by: David Ramirez M.D. 08/14/2021 11:05 AM Hospital Course (1) Chest pain: Troponins negative this admission. Telemetry was normal while here. Exercise stress test was nondiagnostic as he did not reach target heart rate during the study. Due to strong family history of CAD (mother, father) and multiple other CAD risk factors he subsequently underwent heart catheterization by Dr Glynn Sheth. Cath was largely normal with minimal nonobstructive CAD. * ramus intermedius branch with approximately 50% stenosis in its proximal portion - only vessel w/ plaque * L main, L Cx, LAD, RCA all free of disease * intra-cardiac pressures were normal Thus, his chest pain was nonischemic. D-dimer was negative. Recent LE dopplers were negative for DVT. CT chest COMPLETELY normal (no contrast given, but suspicion for PE was very low). Some of his symptoms were at rest - GERD? Pulmonary (bronchoconstriction)? Recent suspected pulmonary edema? Other? Recommended empiric PPI once daily. Advised f/u with [facility] cardiology after discharge for this issue. (2) Weight gain: Patient was ~105kg in February 2021. At time of admission he was ~120kg. I suspect this is indeed fluid weight gain as well as weight gain from other factors. He states that by April 2021 he was having significant LE edema. At that time lasix was started and he has been taking lasix since then. Of note - pharmacy records show he was started on Abilify in February 2021. It is possible that the Abilify has been heavily contributing to fluid retention/weight gain. Cannot exclude gabapentin contributing to edema. Cannot exclude NSAID use (celebrex) contributing to edema. No evidence of liver disease, decompensated hypothyroidism, renal disease, or severe hypoalbuminemia. s/p diuresis x 3 days while here. Creatinine vivian following diuresis. In light of cardiac cath findings and normal pressures on the heart cath -- does he really have diastolic dysfunction? Or, alternatively, is his edema due to medications (abilify, depakote, etc)? venous insufficiency? Combination of factors? Will have him f/u with SEPIDEH Fernandez in CHF clinic to try to determine if he truly has diastolic dysfunction/diastolic CHF or not. At discharge recommended lasix 40mg once daily, starting 24 hours post- discharge. (3) Fluid retention: See above in #1, #2. (4) Diabetes: Recent HbA1C was <6%. BSGs while hospitalized have been excellent but he had had labile BSGs, per his report, at home. We gave him a new meter and perhaps his old meter was spurious? Alternatively, a small percentage of people have erroneous a1c values - ie - BSGs are high chronically but a1c is within normal limits or low. Will have him f/u with Dr Voss post d/c. Regardless, to help with insulin resistance, will utilize metformin 500mg twice daily with meals. (5) HTN (hypertension): BPs acceptable throughout his stay. (6) Seizure-like activity: Cont Depakote and gabapentin. Most recent depakote level was wnl. (7) Pituitary neoplasm: Pituitary tumor was first diagnosed in 2001 and subsequently treated at [facility]. Received surgery and radiation. Had vision loss with some improvement thereafter. Repeat surgery in [place] - 2016 - after recurrence was seen on imaging. No issues with pituitary since then. 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 (8) Panhypopituitarism: see above (9) Open toe wound: great toe - continue augmentin. the toenail is ingrown - needs to see podiatry post-discharge. Refer to Dr Valencia [facility]. (10) Bipolar I disorder: cont usual outpatient meds (11) Vertigo: patient reports 3-4 brief episodes of vertigo brought on by movement over the last few weeks. he has a known arachnoid cyst of the posterior fossa and this was seen on CT head in 2020. consider MRI brain to ensure the cyst is not contributing to his vertigo. meclizine prn in meantime. Patient follows with [facility] Neurology - I asked him to f/u with them to discuss the vertigo and to try to determine the etiology of such. (12) Hemorrhoid: 6 o'clock on FARRAH during the stay. mild BRBPR due to such. Anusol suppository x 7 days. (13) Acute kidney injury: 2nd diuresis. Peak Cr 1.6. Baseline Cr 1.1. Cr at discharge 1.5. Total Time Total Time Spent Total Time Spent (In Minutes): 50 Discharge Plan Discharge Items Patient Disposition: Home - Home Health Services Reason For Visit: CHEST PAIN, SHORTNESS OF BREATH Discharge Diagnosis: 1. chest pain - no evidence of heart attack. Essentially normal heart catheterization. No significant blockages of the heart vessels that would cause chest pain. Normal CAT scan of the chest. Cause of pain not fully certain. Consider reflux disease, possible fluid retention in the lungs, musculoskeletal, etc. as causes. 2. shortness of breath - resolved. Likely due to fluid retention in the lungs. Fluid retention resolved. CAT scan of the lungs/chest on 08/14 was normal (no pneumonia, fluid, etc). 3. intermittent vertigo 4. weight gain - concern that abilify and other bipolar medications are contributing to this. 5. ingrown toenail right big toe - podiatry follow-up needed. Activity: Per Instructions section Exercise/Sports: Wait until after follow-up appointment Non-emergency contact: Primary Care Provider, Specialist and Wrapping Checker Call non-emergency contact if: you have any medication questions and your symptoms worsen Follow-up/Referrals: Larry Amaral MD [Primary Care Provider] - (see Dr Amaral in 1-2 weeks) Jennifer Fernandez PA-C [Physician Hall Tender] - 08/19/21 1:00 pm (Congestive Heart Failure Program Appointment Information Early follow up is essential to managing your heart failure. An appointment has been scheduled for you with the [facility] Program within 7 days of discharge. Anticipate this visit to be 30-60 minutes long. Please expect a community administrator phone call from one of our nurses approximately 48 hours from discharge. They will also be placing an order for lab work to be completed 1-2 days prior to your heart failure follow up appointment. Please be sure to have this done so we can go over the results when you come in. Office Location The cardiology office building is located in front of the hospital at [address] Bring the following with you to your follow-up doctor appointments: Please bring your daily weight log any discharge paperwork all of your medication bottles with you to this visit. ) Alejandrina Valencia DPM [Physician] - (please call Dr Valencia's office to schedule appt for right great toe ingrown toenail) Diet: Carb Consistent or DM2 and Heart Healthy Addtl Attending Provider Instructions: Mr Leiva, You were admitted for the problems listed above in "discharge diagnoses." During your stay you received your furosemide water pill in intravenous form. Your swelling/edema improved with the IV furosemide along with your breathing. Because of your family history of coronary artery disease (mother, father, etc) and your recent chest pains we performed a heart catheterization to check you for coronary artery disease. Your heart catheterization was essentially normal. Thus, your chest pain is not coming from your heart. The exact cause of your chest pain is not fully certain. To cover for the possibility of reflux disease please start pantoprazole 40mg once daily for possible reflux disease. Your shortness of breath improved while here. If there was fluid build-up in the lungs it is now resolved as your lungs are clear and your CAT scan on 08/14 showed normal lungs. Recommendations - 1. HOLD your furosemide water pill today and tomorrow. Resume on Tuesday am, 08/17, but only take 40mg once daily. 2. For hemorrhoids - use anusol suppositories twice daily for 7 days. If your bleeding from your rectum continues or worsens please see your family doctor for this. 3. For vertigo/dizziness - may use meclizine 12.5mg every 6 hours as needed. 4. For elevated blood sugars - take metformin 500mg once daily with breakfast. Start this tomorrow morning. 5. Please LOWER your propranolol to 120mg (from 180mg) once daily. New prescription sent to pharmacy for you. 6. HOLD your lisinopril. 7. DO NOT TAKE [id number]-utqazhe motrin, ibuprofen, naprosyn, alleve, etc. 8. Please follow the instructions below regarding care of your right wrist following your heart catheterization. 9. For your right big toe ingrown nail - soak the foot in warm water with soap added 2-3 times each day for about 20-30 minutes each time. Follow-up - see separate section. In addition, please schedule an appointment in the next few weeks with [facility] to discuss the cyst in the back of the brain and your vertigo/dizziness Return to [facility] if - * your shortness of breath recurs and/or worsens * your right big toe infection worsens * you develop recurrent chest pains * you have severe vertigo that isn't responding to the meclizine medication * you have worsening blood from your rectum * any other concerns Addtl Replenishment Analyst Provider Instructions: Call your Primary Care doctor if any of the following symptoms or problems start or get worse: * Shortness of breath or difficulty breathing * Wake up at night short of breath * Chest pain * Cough * Swelling of your hands, feet, or legs * More fatigued or tired with your normal activity * Palpitations - sudden fast heart beats WEIGHT * Weigh yourself every morning after using the bathroom. * Use the same scale. * Wear the same amount of clothing. * Write your weight down on a chart. * Call your Primary Care doctor if you gain more than 2-3 pounds in 1-2 days. MEDICATIONS * Use this discharge instruction sheet for medication instructions. * Take your medications at the time your doctor ordered. * Do not skip a dose of your medicines. * If you miss a dose of medicine, take it as soon as possible, but DO NOT DOUBLE A DOSE. * Read your medicine information when you get home. * Know all of the side effects of your medicine. If in doubt, ask your pharmacist * Call your Primary Care doctor's office if you have any side effects. * Be sure all of your doctors know what medicine and herbs you take (including cold, flu, and herbal medicine). Take the following with you to your follow-up doctor appointments: * Weight Chart * Medication List * List of questions Do not drink excessive alcohol, beer or wine. Instructions following your heart catheterization - ACTIVITY RECOMMENDATIONS: It is common to feel weak and fatigue for a few days. * Do not drive or operate any motorized equipment for the next three days. * Limit stair usage (2 or 3 trips a day only) for the next three days. * Do not lift anything heavier than 10 pounds for the next three days especially with your right arm/hand. * Do not engage in vigorous exercise or any sports for the next five days. * You may shower at this time. But do not immerse the RIGHT WRIST for three days. Cleanse the site gently with soap and water. SPECIAL CARE INSTRUCTIONS: * After your procedure, it is normal to have a small bruise or small lump at the site. Examine your site daily for any change in the bruise or lump, redness, swelling, drainage or numbness. Notify your doctor if any change. BLEEDING: * If there is a small amount of bleeding at the site, lie down and apply firm pressure with a clean cloth for ten minutes. When the bleeding stops, lie quietly keeping the procedure limb straight for six hours. Notify your doctor as soon as possible. * If the bleeding does not stop after ten minutes or if there is a large amount of bleeding or spurting, call 911 immediately. Continue to lie down and hold firm pressure until help arrives. SKIN IRRITATION: * You may experience some redness and/or swelling in the area where radiation was administered. If any skin irritation occurs, please contact your family physician. Pending Studies at Discharge: No Stand-Alone Forms: [facility] Backtrace I/O, Smoking Cessation Medications and DC Order Prescriptions: New pantoprazole 40 mg Tablet,Delayed Release (Dr/Ec) 40 mg PO QAM Qty: 30 RF: 2 meclizine 12.5 mg tablet 12.5 mg PO QID PRN (Reason: dizziness or vertigo) Qty: 10 RF: 0 Continued levothyroxine 175 mcg tablet 175 mcg PO QAM Qty: 90 RF: 1 Hold Instructions: try armour testosterone 20.25 mg/1.25 gram (1.62 %) gel in metered-dose pump 2 pump TOP PM Qty: 75 RF: 5 Norditropin FlexPro 5 mg/1.5 mL (3.3 mg/mL) pen injector 0.3 mg SQ PM Qty: 3 RF: 11 desmopressin 0.2 mg tablet 0.2 mg PO BID Qty: 60 RF: 5 (DME) blood pressure monitor Kit See Rx Instructions .Route Qty: 1 RF: 0 Emgality Pen 120 mg/mL pen injector 120 mg SQ Q4WK Qty: 1 RF: 5 cyclobenzaprine 10 mg tablet 10 mg PO BID PRN (Reason: muscle spasm) 30 Days Qty: 60 RF: 1 fluticasone propionate [Flonase Allergy Relief] 50 mcg/actuation spray,suspension 1 spray intranasal BID PRN (Reason: allergy symptoms) Qty: 16 RF: 0 cetirizine [Zyrtec] 10 mg tablet 10 mg PO BID Qty: 60 RF: 3 alfuzosin 10 mg tablet extended release 24 hr 10 mg PO DAILY RF: 0 dutasteride [Avodart] 0.5 mg capsule 0.5 mg PO DAILY Qty: 90 RF: 3 multivitamin Tablet 1 tab PO QAM RF: 0 rizatriptan 10 mg Tablet,Disintegrating 10 mg PO DIRECTED PRN (Reason: Migraine Headache) RF: 0 celecoxib 200 mg capsule 200 mg PO QAM RF: 0 benztropine 0.5 mg tablet 0.5 mg PO BID RF: 0 zolmitriptan [Zomig] 5 mg tablet 5 mg PO DIRECTED PRN (Reason: migraine headache) RF: 0 lorazepam 0.5 mg tablet 0.5 mg PO BID PRN (Reason: seizures) RF: 0 diclofenac sodium 1 % Gel 4 g TOPICAL QID PRN (Reason: Pain) RF: 0 albuterol sulfate 90 mcg/actuation HFA aerosol inhaler 1 inh inhalation QID PRN (Reason: DIRECTED) RF: 0 propranolol 20 mg tablet 20 mg PO UD PRN (Reason: tremor) RF: 0 gabapentin 400 mg capsule 400 mg PO TID RF: 0 gabapentin 300 mg Capsule 300 mg PO TID RF: 0 aripiprazole 5 mg Tablet 5 mg PO DAILY RF: 0 duloxetine 30 mg capsule,delayed release(DR/EC) 30 mg PO DAILY RF: 0 Changed propranolol 120 mg capsule,extended release 24 hr 120 mg PO DAILY Qty: 30 RF: 2 hydrocortisone 10 mg tablet 10 - 20 mg PO BID Qty: 0 RF: 0 Discontinued naproxen 500 mg tablet 500 mg PO Q12H PRN (Reason: Pain) Qty: 60 RF: 0 lisinopril 5 mg tablet 5 mg PO DAILY Qty: 30 RF: 2 furosemide [Lasix] 40 mg tablet 60 mg PO DAILY RF: 0 No Action (DME) blood sugar diagnostic Strip See Rx Instructions .Route Qty: 50 RF: 3 (DME) lancets [OneTouch Delica Lancets] 33 gauge misc See Rx Instructions .Route Qty: 100 RF: 3 divalproex [Depakote] 500 mg tablet,delayed release (DR/EC) 1,000 mg PO BID 30 Days Qty: 120 RF: 5 furosemide [Lasix] 40 mg tablet 40 mg PO DAILY Qty: 30 RF: 5 metformin 500 mg tablet 500 mg PO BID Qty: 60 RF: 1 Discharge Orders: Discharge Order (Routine); Ordered 08/15/21 Ordered By: Trenton Owens Admission Data Admit Date/Time: 08/11/21 14:15 Attending Provider: Trenton Owens Admit Provider: Talha Willingham Primary Care Provider: Larry Amaral Other Providers: Talha Willingham ; Garfield Marx Other Interventions: Discharge Summary Assessment (RN) Last Done: 08/15/21 10:47 Coding Level of Care Code D/C DAY MANAGEMENT >30 MINS Diagnoses Chest pain R07.9 Weight gain R63.5 Fluid retention R60.9 Diabetes E11.9 HTN (hypertension) I10 Seizure-like activity R56.9 Pituitary neoplasm D49.7 Panhypopituitarism E23.0 Open toe wound S91.109A Bipolar I disorder F31.9 Vertigo R42 Hemorrhoid K64.9 Acute kidney injury N17.9
== END 2021-08-15 11:39 | disposition home health service (06) ==
LOC: 2S 10:42 → ED 10:42 → SUATTDRO 14:15 → 2S 18:22

== ENCOUNTER 2022-02-22 14:47 | Inpatient (IN) ==
[2022-02-22] MEDS ORDERED: SODIUM CHLORIDE 0.9% 1000ML 1,000 ML IV ONE (15:13)
[2022-02-22 15:25] LABS: Hematocrit (blood only) 44.9 % (42-52); Hemoglobin 15.6 g/dL (14.0-18.0); Mean Corpuscular Hemoglobin 32.4 pg (25-34); Mean Corpuscular Hgb Conc 34.7 g/dL (32-36); Mean Corpuscular Volume 93.2 fL (80-100); RDW Coefficient of Variation 13.6 % (11.5-14.5); RDW Standard Deviation 46.3 fL (36.4-46.3); Red Blood Count 4.82 M/uL (4.7-6.1); White Blood Count 8.69 K/uL (4.8-10.8)
[2022-02-22 16:07] LABS: Basophils # (auto) 0.01 K/uL (0-0.2); Basophils % (auto) 0.1 %; Eosinophils # (auto) 0.09 K/uL (0-0.5); Immature Granulocytes # (auto) 0.06 K/uL (0.00-0.02); Immature Granulocytes % (auto) 0.7 %; Lymphocytes # (auto) 2.57 K/uL (1.2-3.4); Lymphocytes % (auto) 29.6 %; Mean Platelet Volume 9.6 fL (7.4-10.4); Monocytes # (auto) 0.86 K/uL (0.11-0.59); Monocytes % (auto) 9.9 %; Neutrophils % (auto) 58.7 %; Platelet Count 97 K/uL (130-400); Platelet Estimate Decreased (Normal)
--- NOTE | 2022-02-22 16:17 | CT Scan Report ---
CT SCAN OF THE BRAIN WITHOUT IV CONTRAST CLINICAL HISTORY: Seizure. COMPARISON STUDY: CT of the brain dated 08/20/2021. TECHNIQUE: Unenhanced axial CT scan of the brain is performed from the vertex to the skull base. A d ose lowering technique was utilized adhering to the principles of ALARA. CT DOSE: 614.27 mGy.cm FINDINGS: Brain parenchyma: The brain parenchyma is normal in appearance. There is no hemorrhage, mass effect, or evidence of acute territorial ischemia by CT criteria. Paul-white matter differentiation is preser leonardo. No extra-axial fluid collection is seen. Ventricles, sulci, cisterns: Normal in configuration. Megacisterna magna versus arachnoid cyst in the posterior fossa is unchanged. Intracranial vasculature: The visualized intracranial vasculature at the skull base is normal in appe arance. Calvarium: Unremarkable. Sinuses and mastoids: The visualized paranasal sinuses are clear. The mastoid air cells are well pneu matized. Orbits: The bony orbits are grossly intact. IMPRESSION: No acute intracranial abnormality. ACT 112: Negative or not required by law. Electronically signed by: Galindo Mejia M.D. 02/22/2022 4:16 PM
[2022-02-22 16:26] LABS: Appearance Urine Cloudy (Clear); Bilirubin Urine Negative (Negative); Blood Urine Negative (Negative); Color Urine Yellow; Glucose Urine UA Negative (Negative); Ketones Urine Negative (Negative); Leukocyte Esterase Urine Trace (Negative); Nitrite Urine Negative (Negative); Protein Urine Negative (Negative); Specific Gravity Urine 1.015 (1.000-1.030); Urobilinogen Urine Negative (Negative)
--- NOTE | 2022-02-22 16:36 | Emergency Department Note ---
History of Present Illness General Chief Complaint: Seizure Time Seen by Provider: 02/22/22 15:13 History of Present Illness Provider Complaint: + seizure Onset (ago): day(s) (1) Description of Episode: + tonic-clonic movement Witnessed: + yes - by bystander (personal care nurse) Trauma: No Seizure History: + known seizure disorder Place: + home Possible Precipitating Event: + none; no head injury, no fever, no drug use, no alcohol withdrawal, no lack of sleep, no stress or no medication Associated symptoms: no chest pain, no confusion, no cough, no diaphoresis, no fever/chills, no loss of appetite, no malaise, no rash, no shortness of breath, no syncope or no weakness HPI Narrative: Patient reports he had 7 seizures today. Home Medications Medication Instructions Recorded Confirmed Type multivitamin 1 tab PO QAM 07/12/19 02/03/22 History cyclobenzaprine 10 mg tablet 10 mg PO BID PRN 30 Days #60 tab 09/18/20 02/03/22 Rx celecoxib 200 mg capsule 200 mg PO QAM PRN 02/23/21 02/03/22 History somatropin 5 mg/1.5 mL (3.3 mg/mL) 0.3 mg SQ PM #3 ml 06/22/21 02/03/22 Rx subcutaneous pen injector (Norditropin FlexPro) albuterol sulfate 90 mcg/actuation 1 inh INHALATION QID PRN 07/28/21 02/03/22 History aerosol inhaler cetirizine 10 mg tablet (Zyrtec) 10 mg PO BID #60 tab 08/05/21 02/03/22 Rx blood pressure monitor #1 ea 08/06/21 02/03/22 Rx duloxetine 30 mg capsule,delayed 30 mg PO QAM 08/11/21 02/03/22 History release gabapentin 400 mg capsule 400 mg PO TID 08/11/21 02/03/22 History blood sugar diagnostic #50 ea 08/17/21 02/03/22 Rx lancets 33 gauge (OneTouch Delica #100 ea 08/17/21 02/03/22 Rx Lancets) rimegepant 75 mg disintegrating 75 mg PO DAILY PRN 08/20/21 02/03/22 History tablet (Nurtec ODT) lorazepam 0.5 mg tablet 1 mg PO HS tab 09/04/21 02/03/22 History fluticasone propionate 50 1 spray INTRANASAL HS PRN #16 g 10/23/21 02/03/22 Rx mcg/actuation nasal spray,suspension (Flonase Allergy Relief) alfuzosin 10 mg tablet,extended 10 mg PO QAM #90 tab 11/12/21 02/03/22 Rx release 24 hr dutasteride 0.5 mg capsule 0.5 mg PO QAM #90 cap 11/12/21 02/03/22 Rx (Avodart) desmopressin 0.2 mg tablet 0.2 mg PO BID #180 tab 11/17/21 02/03/22 Rx hydrocortisone 10 mg tablet 10 - 20 mg PO BID #400 tab 11/17/21 02/03/22 Rx meclizine 25 mg tablet 25 mg PO BID #180 tab 11/17/21 02/03/22 Rx pantoprazole 40 mg tablet,delayed 40 mg PO QAM #90 tab 11/17/21 02/03/22 Rx release testosterone 20.25 mg/1.25 gram 2 pump TOP PM #75 g 11/25/21 02/03/22 Rx (1.62 %) transdermal gel pump furosemide 40 mg tablet (Lasix) 40 mg PO QAM #90 tab 11/26/21 02/03/22 Rx cholecalciferol (vitamin D3) 50 50 mcg PO DAILY #30 cap 12/17/21 02/03/22 Rx mcg (2,000 unit) capsule metformin 1,000 mg tablet 1,000 mg PO BID #60 tab 12/22/21 02/03/22 Rx onabotulinumtoxinA 200 unit See Rx Instructions IM .COMPLEX #1 12/25/21 02/03/22 Rx solution for injection (Botox) ea insulin aspart U-100 100 unit/mL 1 sliding scale dose SUBCUT 12/29/21 02/03/22 History subcutaneous solution (Novolog USEASDIRECTD U-100 Insulin aspart) lisinopril 5 mg tablet 5 mg PO PM 12/29/21 02/03/22 History levothyroxine 200 mcg tablet 200 mcg PO DAILY #90 tab 02/03/22 02/03/22 Rx propranolol 120 mg capsule,24 120 mg PO DAILY #30 cap 02/12/22 Rx hr,extended release ondansetron HCl 4 mg tablet 4 mg PO Q8H PRN #20 tab 02/17/22 Rx divalproex 500 mg tablet,delayed 1,000 mg PO BID 30 Days #150 tab 02/22/22 02/03/22 Rx release (Depakote) lacosamide 50 mg tablet (Vimpat) 50 mg PO BID 7 Days #30 tab 02/22/22 Rx Allergies Allergy/AdvReac Type Severity Reaction Status Date / Time Iodinated Contrast Media Allergy Intermediate face/eye Verified 02/03/22 10:20 swelling Quinolones Allergy Intermediate HIVES Verified 02/03/22 10:20 Past Med/Surg History Medical History Arthritis Bladder mass benign BPH with obstruction/lower urinary tract symptoms Depression Diverticular disease DM type 2 (diabetes mellitus, type 2) Encounter for pre-operative examination Growth hormone deficiency Hematuria resolved History of COVID-19 10/2021 - fatigue; resolved. Insomnia Kidney stones HX Lumbar radiculopathy Lumbar spine pain Migraine without aura and without status migrainosus, not intractable Mitral valve regurgitation follows with Dr. Phillips Obstructive sleep apnea of adult cpap Pituitary diabetes insipidus Pituitary hypogonadism Pituitary hypothyroidism Pituitary neoplasm Prostate mass benign Rectal bleeding Secondary adrenal insufficiency Seizure disorder last seizure grand mal > gets petite mal more frequent >gets grand mal 3-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 > follows Dr. Ordonez Sensorineural hearing loss of both ears SOB (shortness of breath) on exertion Thrombocytopenia Tremor Surgical History History of bladder surgery remove mass History of brain surgery x2---[address] [facility] [place], 2016 @ [facility]--for brain tumors History of cardiac cath 07/2021 - no stents History of colonoscopy History of esophagogastroduodenoscopy (EGD) History of lithotripsy History of prostate surgery remove mass History of tooth extraction History of wisdom tooth extraction S/P epidural steroid injection Status post right foot surgery replaced 5th metatarsal--hardware in place Family History Grandmother (Paternal) Family history of diabetes mellitus Aunt Family history of diabetes mellitus Uncle Family history of diabetes mellitus Father Prostate cancer Heart disease Mother Cardiac disorder Grandmother (Maternal) Myocardial infarction Other Asthma Cancer Hypertension No family history of adverse response to anesthesia No family history of bleeding disorder Stroke Denies family history of Ovarian cancer Breast cancer Colorectal cancer Social History Smoking Status: Never smoker Second Hand Exposure: No; Hx Alcohol Use: No Hx Substance Use: No Preferred Language: Luxembourgish Communication Ability: Effective Visual Impairment: No Limitations Hearing Ability: Normal Rand Cementer Required: No Beliefs That Will Affect Care: None marital status: Legally Current Living Situation: Alone current occupational status: unemployed Feels Safe at Home: Yes Childhood Exposure to Second-Hand Smoke: Yes (parents smoked) Seatbelt Use: always Assistive Devices: Glasses Review of Systems A total of 10 systems reviewed and were otherwise negative Physical Exam Vital Signs: Vital Signs - 24 hr 02/22/22 14:33 02/22/22 15:02 02/22/22 15:13 Temperature 36.5 C Temperature Source Oral Pulse Rate 65 65 Pulse Rate from Sp O2 Sensor Pulse Rhythm Regular Regular Pulse Strength Normal Respiratory Rate 14 Respiratory Effort / Characteristics Non-Labored Respiratory Depth Shallow Blood Pressure 134/71 Blood Pressure Cecilia n 92 Pulse Oximetry 95 97 95 Oxygen Delivery Me thod Room Air Room Air Room Air Sepsis Recent Feve r Within 48 Hours No Sepsis New/Unexpla ined Change in Men matilde Status N/A Sepsis Action Take n by Nursing No Action Required 02/22/22 15:30 02/22/22 17:08 02/22/22 17:31 Temperature Temperature Source Pulse Rate 63 58 L 57 L Pulse Rate from Sp O2 Sensor 63 57 L 58 L Pulse Rhythm Pulse Strength Respiratory Rate 13 16 13 Respiratory Effort / Characteristics Respiratory Depth Blood Pressure 97/44 L 92/59 L Blood Pressure Cecilia n 61 70 Pulse Oximetry 96 97 99 Oxygen Delivery Me thod Sepsis Recent Feve r Within 48 Hours Sepsis New/Unexpla ined Change in Men matilde Status Sepsis Action Take n by Nursing 02/22/22 17:34 02/22/22 18:00 02/22/22 18:01 Temperature Temperature Source Pulse Rate 58 L 59 L 62 Pulse Rate from Sp O2 Sensor 68 Pulse Rhythm Pulse Strength Respiratory Rate 16 9 L 12 Respiratory Effort / Characteristics Respiratory Depth Blood Pressure 107/78 107/69 Blood Pressure Cecilia n 87 81 Pulse Oximetry 97 Oxygen Delivery Me thod Sepsis Recent Feve r Within 48 Hours Sepsis New/Unexpla ined Change in Men matilde Status Sepsis Action Take n by Nursing 02/22/22 18:31 02/22/22 19:00 Temperature Temperature Source Pulse Rate 61 59 L Pulse Rate from Sp O2 Sensor 62 Pulse Rhythm Pulse Strength Respiratory Rate 15 13 Respiratory Effort / Characteristics Respiratory Depth Blood Pressure 116/73 131/58 L Blood Pressure Cecilia n 87 82 Pulse Oximetry 95 Oxygen Delivery Me thod Sepsis Recent Feve r Within 48 Hours Sepsis New/Unexpla ined Change in Men matilde Status Sepsis Action Take n by Nursing Physical Exam: Physical Exam GENERAL: Patient appears postictal. HENT: Exam performed. - Head: Normocephalic and atraumatic. - Right Ear: External ear normal. No mastoid tenderness. - Left Ear: External ear normal. No mastoid tenderness. - Mouth/Throat: The oropharynx is clear and moist. No trismus in the jaw. No dental abscesses or uvula swelling. No oropharyngeal exudate or tonsillar abscesses. No evidence of tongue bite. EYES: Conjunctivae and EOM are normal. Pupils are equal, round, and reactive to light. Right eye exhibits no discharge. Left eye exhibits no discharge. No s cleral icterus. NECK: Normal range of motion. Neck supple. No JVD present. No spinous process tenderness present. No carotid bruit present. No rigidity. No tracheal deviation and normal range of motion present. No Brudzinski's sign and no Kernig's sign noted. CV: Normal rate, regular rhythm, normal heart sounds and intact distal pulses. There is no peripheral edema. Palpable radial pulses bue. PULM/CHEST: Effort normal and breath sounds normal. No respiratory distress. No stridor. He has no wheezes. He has no rales. - Chest Wall: He exhibits no tenderness. ABD: The abdomen is soft. Bowel sounds are normal. He has no distension. No mass is present. There is no tenderness. MUSC/SKEL: Normal range of motion. There is no peripheral edema, tenderness or deformity. LYMPH: No cervical adenopathy. NEURO: Sensation grossly intact. Course Course 1512: The patient was evaluated in room B2. A complete history and physical exam was performed Cardiac monitoring: An order was placed for continuous cardiac monitoring. The monitor shows a rate of 60 with sinus rhythm Administered Medications Discontinued Medications Sodium Chloride (Nss 1000ml) 1,000 mls @ 999 mls/hr IV .Q1H1M ONE Stop: 02/22/22 16:13 Last Infusion: 02/22/22 17:49 Dose: 0 mls/hr Documented by: [id number] Admin: 02/22/22 16:01 Dose: 999 mls/hr Documented by: [id number] Lacosamide (Lacosamide 50 Mg Tablet) 50 mg PO NOW STA Stop: 02/22/22 18:00 Last Admin: 02/22/22 18:24 Dose: 50 mg Documented by: [id number] Medical Decision Making Laboratory Data Result diagrams: 02/22/22 14:04 02/22/22 14:04 Lab Results 02/22/22 02/22/22 02/22/22 Range/Units 14:04 14:04 14:04 WBC 8.69 (4.8-10.8) K/uL RBC 4.82 (4.7-6.1) M/uL Hgb 15.6 (14.0-18.0) g/dL Hct 44.9 (42-52) % MCV 93.2 (80-100) fL MCH 32.4 (25-34) pg MCHC 34.7 (32-36) g/dL RDW Std Deviation 46.3 (36.4-46.3) fL RDW Coeff of Yanira 13.6 (11.5-14.5) % Plt Count 97 L (130-400) K/uL MPV 9.6 (7.4-10.4) fL Immature Gran % (Auto) 0.7 % Neut % (Auto) 58.7 % Lymph % (Auto) 29.6 % Moody % (Auto) 9.9 % Eos % (Auto) 1.0 % Baso % (Auto) 0.1 % Neut # (Auto) 5.10 (1.4-6.5) K/uL Lymph # (Auto) 2.57 (1.2-3.4) K/uL Moody # (Auto) 0.86 H (0.11-0.59) K/uL Eos # (Auto) 0.09 (0-0.5) K/uL Baso # (Auto) 0.01 (0-0.2) K/uL Immature Gran # (Auto) 0.06 H (0.00-0.02) K/uL Platelet Estimate Decreased L (Normal) PT (9.0-12.0) Seconds INR (0.9-1.1) APTT (21.0-31.0) Seconds PTT Ratio Sodium 135 L (136-145) mmol/L Potassium 4.8 (3.5-5.1) mmol/L Chloride 98 (98-107) mmol/L Carbon Dioxide 25 (21-32) mmol/L Anion Gap 12 H (3-11) BUN 23 (6-23) mg/dl Creatinine 2.71 H (0.6-1.4) mg/dl Est Cr Clr Drug Dosing 39.0 ml/min Est GFR ( Amer) 29.7 ml/min Est GFR (Non-Af Amer) 25.6 ml/min BUN/Creatinine Ratio 8.5 L (10-20) Glucose 103 H (70-99(Fasting)) mg/dl POC Glucose (70-99) mg/dl Lactate (0.4-2.0) mmol/L Calcium 9.5 (8.5-10.1) mg/dl Magnesium 2.0 (1.7-2.4) mg/dl Total Bilirubin (0.2-1.0) mg/dl Direct Bilirubin (0-0.2) mg/dl AST (13-39) U/L ALT (7-52) U/L Alkaline Phosphatase (34-104) U/L Ammonia (18-72) umol/L Total Creatine Kinase (30-223) U/L Total Protein (6.0-8.3) gm/dl Albumin (3.4-5.0) gm/dl Prolactin 1.56 ng/ml Urine Color Urine Appearance (Clear) Urine pH (4.5-7.5) Ur Specific [place] (1.000-1.030) Urine Protein (Negative) Urine Glucose (UA) (Negative) Urine Ketones (Negative) Urine Blood (Negative) Urine Nitrite (Negative) Urine Bilirubin (Negative) Urine Urobilinogen (Negative) Ur Leukocyte Esterase (Negative) Urine WBC (Auto) (0-5) /hpf Urine RBC (Auto) (0-4) /hpf U Hyaline Cast (Auto) (0-5) /lpf U Epithel Cells (Auto) (0-5) /lpf Urine Bacteria (Auto) (Negative) Granular Casts (0) /lpf Valproic Acid (50-100) mcg/ml 02/22/22 02/22/22 02/22/22 Range/Units 15:22 15:59 15:59 WBC (4.8-10.8) K/uL RBC (4.7-6.1) M/uL Hgb (14.0-18.0) g/dL Hct (42-52) % MCV (80-100) fL MCH (25-34) pg MCHC (32-36) g/dL RDW Std Deviation (36.4-46.3) fL RDW Coeff of Yanira (11.5-14.5) % Plt Count (130-400) K/uL MPV (7.4-10.4) fL Immature Gran % (Auto) % Neut % (Auto) % Lymph % (Auto) % Moody % (Auto) % Eos % (Auto) % Baso % (Auto) % Neut # (Auto) (1.4-6.5) K/uL Lymph # (Auto) (1.2-3.4) K/uL Moody # (Auto) (0.11-0.59) K/uL Eos # (Auto) (0-0.5) K/uL Baso # (Auto) (0-0.2) K/uL Immature Gran # (Auto) (0.00-0.02) K/uL Platelet Estimate (Normal) PT (9.0-12.0) Seconds INR (0.9-1.1) APTT (21.0-31.0) Seconds PTT Ratio Sodium (136-145) mmol/L Potassium (3.5-5.1) mmol/L Chloride (98-107) mmol/L Carbon Dioxide (21-32) mmol/L Anion Gap (3-11) BUN (6-23) mg/dl Creatinine (0.6-1.4) mg/dl Est Cr Clr Drug Dosing ml/min Est GFR ( Amer) ml/min Est GFR (Non-Af Amer) ml/min BUN/Creatinine Ratio (10-20) Glucose (70-99(Fasting)) mg/dl POC Glucose 95 (70-99) mg/dl Lactate 1.7 (0.4-2.0) mmol/L Calcium (8.5-10.1) mg/dl Magnesium (1.7-2.4) mg/dl Total Bilirubin (0.2-1.0) mg/dl Direct Bilirubin (0-0.2) mg/dl AST (13-39) U/L ALT (7-52) U/L Alkaline Phosphatase (34-104) U/L Ammonia (18-72) umol/L Total Creatine Kinase (30-223) U/L Total Protein (6.0-8.3) gm/dl Albumin (3.4-5.0) gm/dl Prolactin ng/ml Urine Color Urine Appearance (Clear) Urine pH (4.5-7.5) Ur Specific [place] (1.000-1.030) Urine Protein (Negative) Urine Glucose (UA) (Negative) Urine Ketones (Negative) Urine Blood (Negative) Urine Nitrite (Negative) Urine Bilirubin (Negative) Urine Urobilinogen (Negative) Ur Leukocyte Esterase (Negative) Urine WBC (Auto) (0-5) /hpf Urine RBC (Auto) (0-4) /hpf U Hyaline Cast (Auto) (0-5) /lpf U Epithel Cells (Auto) (0-5) /lpf Urine Bacteria (Auto) (Negative) Granular Casts (0) /lpf Valproic Acid 163 H (50-100) mcg/ml 02/22/22 02/22/22 02/22/22 Range/Units 18:18 18:18 18:33 WBC (4.8-10.8) K/uL RBC (4.7-6.1) M/uL Hgb (14.0-18.0) g/dL Hct (42-52) % MCV (80-100) fL MCH (25-34) pg MCHC (32-36) g/dL RDW Std Deviation (36.4-46.3) fL RDW Coeff of Yanira (11.5-14.5) % Plt Count (130-400) K/uL MPV (7.4-10.4) fL Immature Gran % (Auto) % Neut % (Auto) % Lymph % (Auto) % Moody % (Auto) % Eos % (Auto) % Baso % (Auto) % Neut # (Auto) (1.4-6.5) K/uL Lymph # (Auto) (1.2-3.4) K/uL Moody # (Auto) (0.11-0.59) K/uL Eos # (Auto) (0-0.5) K/uL Baso # (Auto) (0-0.2) K/uL Immature Gran # (Auto) (0.00-0.02) K/uL Platelet Estimate (Normal) PT 15.4 H (9.0-12.0) Seconds INR 1.5 H (0.9-1.1) APTT 36.9 H (21.0-31.0) Seconds PTT Ratio 1.3 Sodium (136-145) mmol/L Potassium (3.5-5.1) mmol/L Chloride (98-107) mmol/L Carbon Dioxide (21-32) mmol/L Anion Gap (3-11) BUN (6-23) mg/dl Creatinine (0.6-1.4) mg/dl Est Cr Clr Drug Dosing ml/min Est GFR ( Amer) ml/min Est GFR (Non-Af Amer) ml/min BUN/Creatinine Ratio (10-20) Glucose (70-99(Fasting)) mg/dl POC Glucose (70-99) mg/dl Lactate (0.4-2.0) mmol/L Calcium (8.5-10.1) mg/dl Magnesium (1.7-2.4) mg/dl Total Bilirubin 0.9 (0.2-1.0) mg/dl Direct Bilirubin 0.1 (0-0.2) mg/dl AST 40 H (13-39) U/L ALT 36 (7-52) U/L Alkaline Phosphatase 46 (34-104) U/L Ammonia 22.0 (18-72) umol/L Total Creatine Kinase 59 (30-223) U/L Total Protein 5.8 L (6.0-8.3) gm/dl Albumin 3.9 (3.4-5.0) gm/dl Prolactin ng/ml Urine Color Urine Appearance (Clear) Urine pH (4.5-7.5) Ur Specific [place] (1.000-1.030) Urine Protein (Negative) Urine Glucose (UA) (Negative) Urine Ketones (Negative) Urine Blood (Negative) Urine Nitrite (Negative) Urine Bilirubin (Negative) Urine Urobilinogen (Negative) Ur Leukocyte Esterase (Negative) Urine WBC (Auto) (0-5) /hpf Urine RBC (Auto) (0-4) /hpf U Hyaline Cast (Auto) (0-5) /lpf U Epithel Cells (Auto) (0-5) /lpf Urine Bacteria (Auto) (Negative) Granular Casts (0) /lpf Valproic Acid (50-100) mcg/ml 02/22/22 Range/Units Unknown WBC (4.8-10.8) K/uL RBC (4.7-6.1) M/uL Hgb (14.0-18.0) g/dL Hct (42-52) % MCV (80-100) fL MCH (25-34) pg MCHC (32-36) g/dL RDW Std Deviation (36.4-46.3) fL RDW Coeff of Yanira (11.5-14.5) % Plt Count (130-400) K/uL MPV (7.4-10.4) fL Immature Gran % (Auto) % Neut % (Auto) % Lymph % (Auto) % Moody % (Auto) % Eos % (Auto) % Baso % (Auto) % Neut # (Auto) (1.4-6.5) K/uL Lymph # (Auto) (1.2-3.4) K/uL Moody # (Auto) (0.11-0.59) K/uL Eos # (Auto) (0-0.5) K/uL Baso # (Auto) (0-0.2) K/uL Immature Gran # (Auto) (0.00-0.02) K/uL Platelet Estimate (Normal) PT (9.0-12.0) Seconds INR (0.9-1.1) APTT (21.0-31.0) Seconds PTT Ratio Sodium (136-145) mmol/L Potassium (3.5-5.1) mmol/L Chloride (98-107) mmol/L Carbon Dioxide (21-32) mmol/L Anion Gap (3-11) BUN (6-23) mg/dl Creatinine (0.6-1.4) mg/dl Est Cr Clr Drug Dosing ml/min Est GFR ( Amer) ml/min Est GFR (Non-Af Amer) ml/min BUN/Creatinine Ratio (10-20) Glucose (70-99(Fasting)) mg/dl POC Glucose (70-99) mg/dl Lactate (0.4-2.0) mmol/L Calcium (8.5-10.1) mg/dl Magnesium (1.7-2.4) mg/dl Total Bilirubin (0.2-1.0) mg/dl Direct Bilirubin (0-0.2) mg/dl AST (13-39) U/L ALT (7-52) U/L Alkaline Phosphatase (34-104) U/L Ammonia (18-72) umol/L Total Creatine Kinase (30-223) U/L Total Protein (6.0-8.3) gm/dl Albumin (3.4-5.0) gm/dl Prolactin ng/ml Urine Color Yellow Urine Appearance Cloudy A (Clear) Urine pH 5.0 (4.5-7.5) Ur Specific [place] 1.015 (1.000-1.030) Urine Protein Negative (Negative) Urine Glucose (UA) Negative (Negative) Urine Ketones Negative (Negative) Urine Blood Negative (Negative) Urine Nitrite Negative (Negative) Urine Bilirubin Negative (Negative) Urine Urobilinogen Negative (Negative) Ur Leukocyte Esterase Trace H (Negative) Urine WBC (Auto) 5-10 H (0-5) /hpf Urine RBC (Auto) 0-4 (0-4) /hpf U Hyaline Cast (Auto) 5-10 H (0-5) /lpf U Epithel Cells (Auto) >30 H (0-5) /lpf Urine Bacteria (Auto) 1+ H (Negative) Granular Casts 1-5 H (0) /lpf Valproic Acid (50-100) mcg/ml Imaging Data Radiologist's Impression: Head CT 02/22/22 15:13 CT SCAN OF THE BRAIN WITHOUT IV CONTRAST CLINICAL HISTORY: Seizure. COMPARISON STUDY: CT of the brain dated 08/20/2021. TECHNIQUE: Unenhanced axial CT scan of the brain is performed from the vertex to the skull base. A dose lowering technique was utilized adhering to the principles of ALARA. CT DOSE: 614.27 mGy.cm FINDINGS: Brain parenchyma: The brain parenchyma is normal in appearance. There is no hemorrhage, mass effect, or evidence of acute territorial ischemia by CT criteria. Paul-white matter differentiation is preserved. No extra-axial fluid collection is seen. Ventricles, sulci, cisterns: Normal in configuration. Megacisterna magna versus arachnoid cyst in the posterior fossa is unchanged. Intracranial vasculature: The visualized intracranial vasculature at the skull base is normal in appearance. Calvarium: Unremarkable. Sinuses and mastoids: The visualized paranasal sinuses are clear. The mastoid air cells are well pneumatized. Orbits: The bony orbits are grossly intact. IMPRESSION: No acute intracranial abnormality. ACT 112: Negative or not required by law. Electronically signed by: Galindo Mejia M.D. 02/22/2022 4:16 PM ECG Data Indication: other (seizure) Rate (beats per minute): 65 Rhythm: normal sinus Findings: no ST depression, no ST elevation or no prolonged QT MDM Narrative Vital signs stable. During the patient's entire emergency department stay the patient has not had any seizure-like activity. Labs show an elevated valproic acid level of 163. Liver function tests, prolactin level, lactic acid level, CK, ammonia are all within normal limits. CT of the head within normal limits. Patient's creatinine is elevated 2.7. I did discuss the case with the [facility] neurology team, Dr. Tapia. He states from a neurological standpoint the patient could be discharged and he recommends adding Vimpat 50 mg twice daily as well as decrease the patient's Depakote to 1000 mg twice daily. However, given the patient's QUENTIN, the patient will be admitted to the [facility] hospitalist team Dr. Michele notified. Impression & Plan QUENTIN (acute kidney injury), Seizure-like activity Discharge Plan Visit Data Chief Complaint: Seizure ED Provider: Henry Higgins Discharge Problem: QUENTIN (acute kidney injury), Seizure-like activity Patient Disposition: Admitted As Inpatient Discharge Instructions Elsy/Other Patient Handouts: ED [facility] Seizure Activity Restrictions/Additional Instructions: Lower your Depakote looses to Depakote 1000 mg twice daily. Forms Stand Alone Forms: My [facility], Virtual Emergency Department, Important Visit Information Prescriptions Prescriptions: New Vimpat 50 mg tablet 50 mg PO BID 7 Days Qty: 30 RF: 0 Changed divalproex [Depakote] 500 mg tablet,delayed release (DR/EC) 1,000 mg PO BID 30 Days Qty: 150 RF: 5 No Action Norditropin FlexPro 5 mg/1.5 mL (3.3 mg/mL) pen injector 0.3 mg SQ PM Qty: 3 RF: 11 (DME) blood pressure monitor Kit See Rx Instructions .Route Qty: 1 RF: 0 (DME) blood sugar diagnostic Strip See Rx Instructions .Route Qty: 50 RF: 3 (DME) lancets [OneTouch Delica Lancets] 33 gauge misc See Rx Instructions .Route Qty: 100 RF: 3 fluticasone propionate [Flonase Allergy Relief] 50 mcg/actuation spray,suspension 1 spray intranasal HS PRN (Reason: allergy symptoms) Qty: 16 RF: 0 dutasteride [Avodart] 0.5 mg capsule 0.5 mg PO QAM Qty: 90 RF: 2 alfuzosin 10 mg tablet extended release 24 hr 10 mg PO QAM Qty: 90 RF: 2 desmopressin 0.2 mg tablet 0.2 mg PO BID Qty: 180 RF: 3 hydrocortisone 10 mg tablet 10 - 20 mg PO BID Qty: 400 RF: 1 testosterone 20.25 mg/1.25 gram (1.62 %) gel in metered-dose pump 2 pump TOP PM Qty: 75 RF: 5 furosemide [Lasix] 40 mg tablet 40 mg PO QAM Qty: 90 RF: 3 cholecalciferol (vitamin D3) 50 mcg (2,000 unit) capsule 50 mcg PO DAILY Qty: 30 RF: 7 metformin 1,000 mg tablet 1,000 mg PO BID Qty: 60 RF: 1 Botox 200 unit recon soln See Rx Instructions IM .COMPLEX Qty: 1 RF: 3 propranolol 120 mg capsule,extended release 24 hr 120 mg PO DAILY Qty: 30 RF: 8 ondansetron HCl 4 mg tablet 4 mg PO Q8H PRN (Reason: nausea and vomiting) Qty: 20 RF: 1 cyclobenzaprine 10 mg tablet 10 mg PO BID PRN (Reason: muscle spasm) 30 Days Qty: 60 RF: 1 meclizine 25 mg tablet 25 mg PO BID Qty: 180 RF: 1 pantoprazole 40 mg tablet,delayed release (DR/EC) 40 mg PO QAM Qty: 90 RF: 3 levothyroxine 200 mcg tablet 200 mcg PO DAILY Qty: 90 RF: 3 cetirizine [Zyrtec] 10 mg tablet 10 mg PO BID Qty: 60 RF: 3 lorazepam 0.5 mg tablet 1 mg PO HS RF: 0 multivitamin Tablet 1 tab PO QAM RF: 0 Nurtec ODT 75 mg tablet,disintegrating 75 mg PO DAILY PRN (Reason: Migraine Headache) RF: 0 insulin aspart U-100 [Novolog U-100 Insulin aspart] 100 unit/mL Solution 1 sliding scale dose SUBCUT USEASDIRECTD RF: 0 lisinopril 5 mg tablet 5 mg PO PM RF: 0 celecoxib 200 mg capsule 200 mg PO QAM PRN (Reason: Pain) RF: 0 albuterol sulfate 90 mcg/actuation HFA aerosol inhaler 1 inh inhalation QID PRN (Reason: DIRECTED) RF: 0 gabapentin 400 mg capsule 400 mg PO TID RF: 0 duloxetine 30 mg capsule,delayed release(DR/EC) 30 mg PO QAM RF: 0 Referrals Referrals: Prince Tapia MD [Physician] - (Follow-up in 1-7 days.) Larry Amaral MD [Primary Care Provider] - (Follow-up in 1-7 days.)
[2022-02-22 17:17] LABS: Potassium 4.8 mmol/L (3.5-5.1)
[2022-02-22 17:18] LABS: BUN Creatinine Ratio 8.5 (10-20); Calcium 9.5 mg/dl (8.5-10.1); Est GFR (African American) 29.7 ml/min; Est GFR (Non-African American) 25.6 ml/min
[2022-02-22 17:23] LABS: Epithelial Cell Urine Auto >30 /lpf (0-5); RBC Urine Automated 0-4 /hpf (0-4)
[2022-02-22 17:24] LABS: Bacteria Urine Automated 1+ (Negative)
[2022-02-22] MEDS ORDERED: LACOSAMIDE 50 MG TABLET PO STA (17:59)
[2022-02-22 18:39] LABS: INR 1.5 (0.9-1.1); Partial Thromboplastin Ratio 1.3; Partial Thromboplastin Time 36.9 Seconds (21.0-31.0); Prothrombin Time 15.4 Seconds (9.0-12.0)
[2022-02-22 19:08] LABS: Albumin Level 3.9 gm/dl (3.4-5.0); Bilirubin Direct 0.1 mg/dl (0-0.2); Bilirubin,Total 0.9 mg/dl (0.2-1.0); Total Protein 5.8 gm/dl (6.0-8.3)
[2022-02-22] MEDS ORDERED: SODIUM CHLORIDE 0.9% 1000ML 1,000 ML IV SCH (19:45)
--- NOTE | 2022-02-22 20:16 | History & Physical Report ---
Date of Service February 22, 2022 Assessment & Plan (1) QUENTIN (acute kidney injury): Plan: 51yo male presenting with reported seizure-like activity. Found with QUENTIN - BUN=23 from 14 (01/26/22), Cr of 2.71 (from 12/12 on 01/26/22). Electrolytes are acceptable. Patient is urinating without difficulty. CK is WNL. Most likely multifactorial. Patient reports decreased oral intake as well as frequent nausea/vomiting/diarrhea associated with food intake suggesting pre-renal co mponent. He is on Lasix, Lisinopril. -Monitor I/O's -Monitor BMP, electrolytes and renal function -Avoid nephrotoxic medications -Renal dosing where needed for CrCl of 39 (2) Seizure-like activity: Plan: Patient with known epilepsy. He is compliant with his medications - previously on Depakote 1000mg qAM and 1500mg qPM. Level measured today high at 163mcg/ml (range 50-100) -Will decrease Depakote to 1000mg po BID -Start Vimpat 50mg po BID -Maintain seizure precautions -Neurology followup outpatient (3) Syncope: Plan: Patient reports episodes of "blacking out". Uncertain if these represent syncope vs seizure activity. He has had fairly extensive workup for this issue already including followup with Neurology and Cardiology. -Cardiac monitoring -Fall precautions -Check orthostatic VS x 1 -2D echo (4) Secondary adrenal insufficiency: Plan: Patient with panhypopituitarism - he had a large pituitary tumor diagnosed in 2001 when he presented with pituitary apoplexy. He was treated at [facility] with urgent surgery and radiation. He had tumor regrowth demonstrated on repeat MRIs - had a repeat surgery by Dr. Liao in [place] in Fall 2015. Repeat imaging has since been clear. 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 -Continue Desmopressin 0.2mg po BID -Continue to monitor I/Os to assess for polyuria Growth hormone deficiency: -Received IGF-1 in 2018, follows with Endocrine Hypogonadotropic hypogonadism -Continue transdermal testosterone Central hypothyroidism -Continue Synthroid 200mcg daily ACTH insufficiency- Is typically on hydrocortisone 20mg qAM and 10mg qPM -Will double dose while hospitalized to cover for increased stress - 40mg po qAM and 20mg po qPM (5) Idiopathic polyneuropathy: Plan: Patient is being referred to [facility] for second opinion (6) Anxiety: Plan: Chronic -Continue Duloxetine -Continue Ativan qHS (7) Essential tremor: Plan: Chronic -Continue Propranolol (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 ?anticipatory nausea/anxiety re: intake. ?poor taste/dysguesia with recent decline in renal function. ?poor gastric emptying -Zofran PRN -PO as tolerated History of Present Illness Chief Complaint: seizure Primary Care Provider: Larry Amaral MD Anders Leiva is a 51yo male with complex medical history presenting with worsening seizure activity. Patient with history of epilepsy. He follows with Neurology - last seen on 01/29/22. He is compliant with his medications - Divalproex 1000mg qAM and 1500mg qPM. He reports increasing seizure frequency over the last couple of months. He typically has a seizure every couple of days. He reports he had 7 episodes of seizure-like activity today prior to arrival. He reports being awake and alert during the episodes but having no control over his movements. Reports tonic-clonic movements of bilateral arms and legs. He denies prodrome. Has some mild confusion after the episodes. Has had fecal incontinence as well. Additionally, patient continues to have episodes of blacking out. He reports "blacking out". Can occur at any time in any position with no warning. These e vents have been discussed with Neurology as well as cardiology. Workup to include tilt-table testing, 30 day cardiac monitoring have been unrevealing. Patient denies chest pain, palpitations, SOB or prodrome. Feels fine after the black outs. These have been going on since July 2021 but have increased in frequency. Additionally the patient reports poor appetite, nausea with vomiting immediately following meals and watery diarrhea after eating. He reports losing appx 25# unintentionally over the last month or two. (Per weight review in chart - please consider different scales/degree of dress/shoes/etc - patient weighs 105.8kg today and was 113kg on 12/29/21). He denies difficulty chewing, dysphagia, odynophagia. Denies fever, chills, chest pain, cough, SOB, abdominal pain, dysuria. States he is able to urinate without difficulty. Occasionally dark yellow in color. Patient has not been vaccinated against Covid-19. His Covid-19 testing today from the ER is NEGATIVE ER Course: Vimpat 50mg, NSS x 1L then 125mL/hr started. Allergies Allergy/AdvReac Type Severity Reaction Status Date / Time Iodinated Contrast Media Allergy Intermediate face/eye Verified 02/22/22 20:45 swelling Quinolones Allergy Intermediate HIVES Verified 02/22/22 20:45 Home Medications Medication Instructions Recorded Confirmed Type multivitamin 1 tab PO QAM 07/12/19 02/22/22 History cyclobenzaprine 10 mg tablet 10 mg PO BID PRN 30 Days #60 tab 09/18/20 02/22/22 Rx celecoxib 200 mg capsule 200 mg PO QAM PRN 02/23/21 02/22/22 History somatropin 5 mg/1.5 mL (3.3 mg/mL) 0.3 mg SQ PM #3 ml 06/22/21 02/22/22 Rx subcutaneous pen injector (Norditropin FlexPro) albuterol sulfate 90 mcg/actuation 1 inh INHALATION QID PRN 07/28/21 02/22/22 History aerosol inhaler cetirizine 10 mg tablet (Zyrtec) 10 mg PO BID #60 tab 08/05/21 02/22/22 Rx blood pressure monitor #1 ea 08/06/21 02/03/22 Rx duloxetine 30 mg capsule,delayed 30 mg PO QAM 08/11/21 02/22/22 History release gabapentin 400 mg capsule 400 mg PO TID 08/11/21 02/22/22 History blood sugar diagnostic #50 ea 08/17/21 02/03/22 Rx lancets 33 gauge (OneTouch Delica #100 ea 08/17/21 02/03/22 Rx Lancets) rimegepant 75 mg disintegrating 75 mg PO DAILY PRN 08/20/21 02/22/22 History tablet (Nurtec ODT) lorazepam 0.5 mg tablet 1 mg PO HS tab 09/04/21 02/22/22 History fluticasone propionate 50 1 spray INTRANASAL HS PRN #16 g 10/23/21 02/22/22 Rx mcg/actuation nasal spray,suspension (Flonase Allergy Relief) alfuzosin 10 mg tablet,extended 10 mg PO QAM #90 tab 11/12/21 02/22/22 Rx release 24 hr dutasteride 0.5 mg capsule 0.5 mg PO QAM #90 cap 11/12/21 02/22/22 Rx (Avodart) desmopressin 0.2 mg tablet 0.2 mg PO BID #180 tab 11/17/21 02/22/22 Rx meclizine 25 mg tablet 25 mg PO BID #180 tab 11/17/21 02/22/22 Rx pantoprazole 40 mg tablet,delayed 40 mg PO QAM #90 tab 11/17/21 02/22/22 Rx release testosterone 20.25 mg/1.25 gram 2 pump TOP PM #75 g 11/25/21 02/22/22 Rx (1.62 %) transdermal gel pump furosemide 40 mg tablet (Lasix) 40 mg PO QAM #90 tab 11/26/21 02/22/22 Rx cholecalciferol (vitamin D3) 50 50 mcg PO DAILY #30 cap 12/17/21 02/22/22 Rx mcg (2,000 unit) capsule metformin 1,000 mg tablet 1,000 mg PO BID #60 tab 12/22/21 02/22/22 Rx onabotulinumtoxinA 200 unit See Rx Instructions IM .COMPLEX #1 12/25/21 02/22/22 Rx solution for injection (Botox) ea insulin aspart U-100 100 unit/mL 1 sliding scale dose SUBCUT TID PRN 12/29/21 02/22/22 History subcutaneous solution (Novolog U-100 Insulin aspart) lisinopril 5 mg tablet 5 mg PO PM 12/29/21 02/22/22 History levothyroxine 200 mcg tablet 200 mcg PO DAILY #90 tab 02/03/22 02/22/22 Rx propranolol 120 mg capsule,24 120 mg PO DAILY #30 cap 02/12/22 02/22/22 Rx hr,extended release ondansetron HCl 4 mg tablet 4 mg PO Q8H PRN #20 tab 02/17/22 02/22/22 Rx divalproex 500 mg tablet,delayed 1,000 mg PO BID 30 Days #150 tab 02/22/22 02/03/22 Rx release (Depakote) hydrocortisone 10 mg tablet 10 mg PO QPM 02/22/22 02/22/22 History hydrocortisone 10 mg tablet 20 mg PO QAM 02/22/22 02/22/22 History lacosamide 50 mg tablet (Vimpat) 50 mg PO BID 7 Days #30 tab 02/22/22 Rx Past Med/Surg History Medical History (Updated 02/22/22 @ 22:54 by Siobhan Michele, DO) Arthritis Bladder mass benign BPH with obstruction/lower urinary tract symptoms Depression Diverticular disease DM type 2 (diabetes mellitus, type 2) Encounter for pre-operative examination Growth hormone deficiency Hematuria resolved History of COVID-19 10/2021 - fatigue; resolved. Insomnia Kidney stones HX Lumbar radiculopathy Lumbar spine pain Migraine without aura and without status migrainosus, not intractable Mitral valve regurgitation follows with Dr. Phillips Obstructive sleep apnea of adult cpap Pituitary diabetes insipidus Pituitary hypogonadism Pituitary hypothyroidism Pituitary neoplasm Prostate mass benign Rectal bleeding Secondary adrenal insufficiency Seizure disorder last seizure grand mal > gets petite mal more frequent >gets grand mal 3-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 > follows Dr. Ordonez Sensorineural hearing loss of both ears SOB (shortness of breath) on exertion Thrombocytopenia Tremor Surgical History History of bladder surgery remove mass History of brain [place] [facility] [place] [facility]--for brain tumors History of cardiac cath 07/2021 - no stents History of colonoscopy History of esophagogastroduodenoscopy (EGD) History of lithotripsy History of prostate surgery remove mass History of tooth extraction History of wisdom tooth extraction S/P epidural steroid injection Status post right foot surgery replaced 5th metatarsal--hardware in place Family History Grandmother (Paternal) Family history of diabetes mellitus Aunt Family history of diabetes mellitus Uncle Family history of diabetes mellitus Father Prostate cancer Heart disease Mother Cardiac disorder Grandmother (Maternal) Myocardial infarction Other Asthma Cancer Hypertension No family history of adverse response to anesthesia No family history of bleeding disorder Stroke Denies family history of Ovarian cancer Breast cancer Colorectal cancer Social History Smoking Status: Never smoker Second Hand Exposure: Yes; Do You Dip or Chew Tobacco: Yes; Tobacco Cessation Education Requested by Patient: No Hx Alcohol Use: No Hx Substance Use: No Preferred Language: Wolof Communication Ability: Effective Visual Impairment: No Limitations Hearing Ability: Normal Family Practice Nurse Practitioner Required: No Beliefs That Will Affect Care: None marital status: Legally Current Living Situation: Alone current occupational status: unemployed Other Information That Helps Us Care for You: No Feels Safe at Home: Yes Safety Concerns: Feels Safe At This Time Childhood Exposure to Second-Hand Smoke: Yes (parents smoked) Seatbelt Use: always Assistive Devices: Cane, CPAP and Walker Review of Systems Review of Systems: All systems reviewed & are unremarkable except as noted in HPI & below Physical Exam Physical Exam: General: patient resting comfortably, NAD, non-toxic in appearance, AA&O x 4 Skin: warm, dry, intact, some bruises and healing lesions noted on forearms, legs HEENT: NC/AT, PERRL, EOMI, anicteric sclera, conjunctiva without injection, external ear normal to inspection and nontender, nares patent, DRY mucus membranes, dentition intact, no oropharyngeal lesions, neck supple, trachea midline, no LAD, no thyromegaly, no JVD Heart: +S1/S2, regular, no m/r/g Lungs: equal air entry bilaterally, no rales/rhonchi/wheezes Abd: +BS, soft, NT/ND, no masses/organomegaly/ascites Ext: warm, 2+ pulses in UE/LE bilaterally, no clubbing/cyanosis or edema Neuro: nonfocal, patient AA&O x 4, speech intact, no facial droop, moving all extremities on command with equal strength 5/5 Results & Data Results & Data ([facility]) Vital Signs (Past 12 Hours) Vital Signs Temp Pulse Resp BP Pulse Ox 02/22/22 20:00 62 15 02/22/22 19:30 59 L 12 02/22/22 19:00 59 L 13 131/58 L 02/22/22 18:31 61 15 116/73 95 02/22/22 18:01 62 12 107/69 02/22/22 18:00 59 L 9 L 02/22/22 17:34 58 L 16 107/78 97 02/22/22 17:31 57 L 13 92/59 L 99 02/22/22 17:08 58 L 16 97/44 L 97 02/22/22 15:30 63 13 96 02/22/22 15:13 65 95 02/22/22 15:02 36.5 C 65 14 134/71 97 02/22/22 14:33 95 Laboratory Results Laboratory Results WBC 8.69 K/uL (4.8-10.8) 02/22/22 14:04 RBC 4.82 M/uL (4.7-6.1) 02/22/22 14:04 Hgb 15.6 g/dL (14.0-18.0) 02/22/22 14:04 Hct 44.9 % (42-52) 02/22/22 14:04 MCV 93.2 fL (80-100) 02/22/22 14:04 MCH 32.4 pg (25-34) 02/22/22 14:04 MCHC 34.7 g/dL (32-36) 02/22/22 14:04 RDW Std Deviation 46.3 fL (36.4-46.3) 02/22/22 14:04 RDW Coeff of Yanira 13.6 % (11.5-14.5) 02/22/22 14:04 Plt Count 97 K/uL (130-400) L 02/22/22 14:04 MPV 9.6 fL (7.4-10.4) 02/22/22 14:04 Immature Gran % (Auto) 0.7 % 02/22/22 14:04 Neut % (Auto) 58.7 % 02/22/22 14:04 Lymph % (Auto) 29.6 % 02/22/22 14:04 [place] % (Auto) 9.9 % 02/22/22 14:04 Eos % (Auto) 1.0 % 02/22/22 14:04 Baso % (Auto) 0.1 % 02/22/22 14:04 Neut # (Auto) 5.10 K/uL (1.4-6.5) 02/22/22 14:04 Lymph # (Auto) 2.57 K/uL (1.2-3.4) 02/22/22 14:04 [place] # (Auto) 0.86 K/uL (0.11-0.59) H 02/22/22 14:04 Eos # (Auto) 0.09 K/uL (0-0.5) 02/22/22 14:04 Baso # (Auto) 0.01 K/uL (0-0.2) 02/22/22 14:04 Immature Gran # (Auto) 0.06 K/uL (0.00-0.02) H 02/22/22 14:04 Platelet Estimate Decreased (Normal) L 02/22/22 14:04 PT 15.4 Seconds (9.0-12.0) H 02/22/22 18:18 INR 1.5 (0.9-1.1) H 02/22/22 18:18 APTT 36.9 Seconds (21.0-31.0) H 02/22/22 18:18 PTT Ratio 1.3 02/22/22 18:18 Sodium 135 mmol/L (136-145) L 02/22/22 14:04 Potassium 4.8 mmol/L (3.5-5.1) 02/22/22 14:04 Chloride 98 mmol/L (98-107) 02/22/22 14:04 Carbon Dioxide 25 mmol/L (21-32) 02/22/22 14:04 Anion Gap 12 (3-11) H 02/22/22 14:04 BUN 23 mg/dl (6-23) 02/22/22 14:04 Creatinine 2.71 mg/dl (0.6-1.4) H 02/22/22 14:04 Est Cr Clr Drug Dosing 39.0 ml/min 02/22/22 14:04 Est GFR ( Amer) 29.7 ml/min 02/22/22 14:04 Est GFR (Non-Af Amer) 25.6 ml/min 02/22/22 14:04 BUN/Creatinine Ratio 8.5 (10-20) L 02/22/22 14:04 Glucose 103 mg/dl (70-99(Fasting)) H 02/22/22 14:04 POC Glucose 95 mg/dl (70-99) 02/22/22 15:22 Lactate 1.7 mmol/L (0.4-2.0) 02/22/22 15:59 Calcium 9.5 mg/dl (8.5-10.1) 02/22/22 14:04 Magnesium 2.0 mg/dl (1.7-2.4) 02/22/22 14:04 Total Bilirubin 0.9 mg/dl (0.2-1.0) 02/22/22 18:18 Direct Bilirubin 0.1 mg/dl (0-0.2) 02/22/22 18:18 AST 40 U/L (13-39) H 02/22/22 18:18 ALT 36 U/L (7-52) 02/22/22 18:18 Alkaline Phosphatase 46 U/L (34-104) 02/22/22 18:18 Ammonia 22.0 umol/L (18-72) 02/22/22 18:33 Total Creatine Kinase 59 U/L (30-223) 02/22/22 18:18 Total Protein 5.8 gm/dl (6.0-8.3) L 02/22/22 18:18 Albumin 3.9 gm/dl (3.4-5.0) 02/22/22 18:18 Prolactin 1.56 ng/ml 02/22/22 14:04 Urine Color Yellow 02/22/22 Unknown Urine Appearance Cloudy (Clear) A 02/22/22 Unknown Urine pH 5.0 (4.5-7.5) 02/22/22 Unknown Ur Specific [place] 1.015 (1.000-1.030) 02/22/22 Unknown Urine Protein Negative (Negative) 02/22/22 Unknown Urine Glucose (UA) Negative (Negative) 02/22/22 Unknown Urine Ketones Negative (Negative) 02/22/22 Unknown Urine Blood Negative (Negative) 02/22/22 Unknown Urine Nitrite Negative (Negative) 02/22/22 Unknown Urine Bilirubin Negative (Negative) 02/22/22 Unknown Urine Urobilinogen Negative (Negative) 02/22/22 Unknown Ur Leukocyte Esterase Trace (Negative) H 02/22/22 Unknown Urine WBC (Auto) 5-10 /hpf (0-5) H 02/22/22 Unknown Urine RBC (Auto) 0-4 /hpf (0-4) 02/22/22 Unknown U Hyaline Cast (Auto) 5-10 /lpf (0-5) H 02/22/22 Unknown U Epithel Cells (Auto) >30 /lpf (0-5) H 02/22/22 Unknown Urine Bacteria (Auto) 1+ (Negative) H 02/22/22 Unknown Granular Casts 1-5 /lpf (0) H 02/22/22 Unknown Valproic Acid 163 mcg/ml (50-100) H 02/22/22 15:59 SARS-CoV-2, RNA, NAAT NEGATIVE (NEGATIVE) 02/22/22 20:[address] 02/22/22 15:13 CT SCAN OF THE BRAIN WITHOUT IV CONTRAST CLINICAL HISTORY: Seizure. COMPARISON STUDY: CT of the brain dated 08/20/2021. TECHNIQUE: Unenhanced axial CT scan of the brain is performed from the vertex to the skull base. A dose lowering technique was utilized adhering to the pr inciples of LEONARDO. CT DOSE: 614.27 mGy.cm FINDINGS: Brain parenchyma: The brain parenchyma is normal in appearance. There is no hemorrhage, mass effect, or evidence of acute territorial ischemia by CT criteria. Paul-white matter differentiation is preserved. No extra-axial fluid collection is seen. Ventricles, sulci, cisterns: Normal in configuration. Megacisterna magna versus arachnoid cyst in the posterior fossa is unchanged. Intracranial vasculature: The visualized intracranial vasculature at the skull base is normal in appearance. Calvarium: Unremarkable. Sinuses and mastoids: The visualized paranasal sinuses are clear. The mastoid air cells are well pneumatized. Orbits: The bony orbits are grossly intact. IMPRESSION: No acute intracranial abnormality. ACT 112: Negative or not required by law. Electronically signed by: Galindo Mejia M.D. 02/22/2022 4:16 PM Code Status & VTE Plan VTE Prophylaxis Plan VTE Prophylaxis will be ordered: Yes PG Care Time/CCT Total # of Minutes Spent Total Time Spent with Patient: Total time spent is greater than 50% in coordination of care (as documented) at patient's floor/unit and/or counseling patient: Coding Level of Care Code 43599 Initial Inpt Care Lvl 3 Diagnoses QUENTIN (acute kidney injury) N17.9 Seizure-like activity R56.9 Idiopathic polyneuropathy G60.9 Syncope R55 Anxiety F41.9 Essential tremor G25.0 BPH with obstruction/lower urinary tract symptoms N40.1; N13.8 Secondary adrenal insufficiency E27.49 Diarrhea R19.7
[2022-02-22] MEDS ORDERED: DESMOPRESSIN ACETATE 0.1 MG TAB PO STA (21:51)
[2022-02-22] MEDS ORDERED: GABAPENTIN 300 MG CAP PO STA (21:51)
[2022-02-22] MEDS ORDERED: HYDROCORTISONE 10 MG TAB PO STA (21:51)
[2022-02-22] MEDS ORDERED: DIVALPROEX DELAY RELEASE 500 MG TAB PO STA (21:53)
[2022-02-22] MEDS ORDERED: ACETAMINOPHEN 325 MG TAB PO PRN (22:17)
[2022-02-22] MEDS ORDERED: CYCLOBENZAPRINE HCL 10 MG TAB PO PRN (22:17)
[2022-02-22] MEDS ORDERED: ONDANSETRON INJ 2 MG/ML 2 ML VIAL IV PRN (22:17)
[2022-02-22] MEDS ORDERED: GLUCAGON FOR INJ 1 MG VIAL SQ PRN (22:17)
[2022-02-22] MEDS ORDERED: DEXTROSE 50% 50 ML SYRINGE IV PRN (22:17)
[2022-02-22] MEDS ORDERED: CARBOHYDRATES FOR HYPOGLYCEMIA PO PRN (22:17)
[2022-02-22] MEDS ORDERED: GLUCOSE 10 TABS/TUBE PO PRN (22:17)
[2022-02-22] MEDS ORDERED: ALBUTEROL HFA 8 GM INHALER INH PRN (22:17)
[2022-02-22] MEDS ORDERED: GLUCOSE 40% GEL 15 GM TUBE PO PRN (22:17)
[2022-02-22] MEDS ORDERED: FLUTICASONE PROPIONATE NA SPR 16 GM BTL PRN (22:17)
[2022-02-22] MEDS: LACTATED RINGER'S 1,000 ML IV SCH (23:13)
[2022-02-23] MEDS: LEVOTHYROXINE SODIUM 200 MCG TABLET PO SCH (05:52)
[2022-02-23] MEDS: LACTATED RINGER'S 1,000 ML IV SCH (05:54)
[2022-02-23 07:02] LABS: Hematocrit (blood only) 42.2 % (42-52); Hemoglobin 14.6 g/dL (14.0-18.0); Mean Corpuscular Hemoglobin 32.4 pg (25-34); Mean Corpuscular Hgb Conc 34.6 g/dL (32-36); Mean Corpuscular Volume 93.6 fL (80-100); RDW Coefficient of Variation 13.3 % (11.5-14.5); RDW Standard Deviation 45.4 fL (36.4-46.3); Red Blood Count 4.51 M/uL (4.7-6.1); White Blood Count 6.51 K/uL (4.8-10.8)
--- NOTE | 2022-02-23 07:10 | Electrocardiogram Report ---
Test Reason : Blood Pressure : / mmHG Vent. Rate : 065 BPM Atrial Rate : 065 BPM P-R Int : 150 ms QRS Dur : 086 ms QT Int : 418 ms P-R-T Axes : 051 -02 022 degrees QTc Int : 434 ms Normal sinus rhythm Normal ECG When compared with ECG of 26-JAN-2022 14:55, Vent. rate has decreased BY 34 BPM Confirmed by Bo Edwards ([id number]) on 02/23/2022 7:10:13 AM Referred By: REFERRED SELF Confirmed By:Bo Edwards
[2022-02-23 07:12] LABS: INR 1.2 (0.9-1.1); Mean Platelet Volume 9.2 fL (7.4-10.4); Platelet Count 79 K/uL (130-400); Prothrombin Time 12.4 Seconds (9.0-12.0)
[2022-02-23 07:27] LABS: Albumin Level 3.8 gm/dl (3.4-5.0); BUN Creatinine Ratio 14.5 (10-20); Bilirubin Direct 0.1 mg/dl (0-0.2); Bilirubin,Total 0.8 mg/dl (0.2-1.0); Calcium 8.7 mg/dl (8.5-10.1); Creatinine Clr Calc Pharmacy 63.5 ml/min; Est GFR (African American) 53.7 ml/min; Est GFR (Non-African American) 46.4 ml/min; Potassium 5.5 mmol/L (3.5-5.1); Total Protein 5.7 gm/dl (6.0-8.3)
[2022-02-23 07:55] LABS: Basophils # (auto) 0.01 K/uL (0-0.2); Basophils % (auto) 0.2 %; Eosinophils # (auto) 0.07 K/uL (0-0.5); Eosinophils % (auto) 1.1 %; Immature Granulocytes # (auto) 0.03 K/uL (0.00-0.02); Immature Granulocytes % (auto) 0.5 %; Lymphocytes # (auto) 1.88 K/uL (1.2-3.4); Lymphocytes % (auto) 28.9 %; Monocytes # (auto) 0.57 K/uL (0.11-0.59); Monocytes % (auto) 8.8 %; Neutrophils # (auto) 3.95 K/uL (1.4-6.5); Neutrophils % (auto) 60.5 %
[2022-02-23] MEDS ORDERED: LACOSAMIDE 50 MG TABLET PO SCH (09:00)
[2022-02-23] MEDS: CETIRIZINE HCL 10 MG TABLET PO SCH ×2 (09:22→20:17)
[2022-02-23] MEDS: INSULIN GLARGINE SOLOSTAR 100 UNITS/ML 3 ML PEN SC SCH ×2 (09:22→20:20)
[2022-02-23] MEDS: ALFUZOSIN HCL 10 MG TAB PO SCH (09:22)
[2022-02-23] MEDS: DULoxetine HCL 30 MG CAP PO SCH (09:22)
[2022-02-23] MEDS: PROPRANOLOL HCL 60 MG LA CAP PO SCH (09:22)
[2022-02-23] MEDS: MECLIZINE HCL 25 MG TAB PO SCH ×2 (09:22→20:21)
[2022-02-23] MEDS: PANTOprazole 40 MG TAB PO SCH (09:23)
[2022-02-23] MEDS: GABAPENTIN 400 MG CAP PO SCH ×3 (09:23→20:19)
[2022-02-23] MEDS: DESMOPRESSIN ACETATE 0.1 MG TAB PO SCH ×2 (09:23→20:18)
[2022-02-23] MEDS: TESTOSTERONE~ORDER AWAITING ACTION SCH ×3 (09:23→23:06)
[2022-02-23] MEDS: HYDROCORTISONE 10 MG TAB PO SCH ×2 (09:23→20:19)
[2022-02-23] MEDS ORDERED: SODIUM CHLORIDE 0.9% 1000ML 1,000 ML IV SCH (09:45)
[2022-02-23] MEDS ORDERED: LACTULOSE SYRUP 20 GM/30 ML UDC PO SCH (10:00)
[2022-02-23] MEDS: INSULIN ASPART PER UNIT SC SCH ×4 (10:04→20:20)
[2022-02-23] MEDS ORDERED: SODIUM CHLORIDE 0.9% 1000ML 250 ML IV ONE (11:01)
--- NOTE | 2022-02-23 11:08 | XCELERA ---
[id number]
[2022-02-23 12:14] LABS: Adenovirus F 40/41 PCR Not Detected (NotDetected); Astrovirus PCR Not Detected (NotDetected); Campylobacter PCR Not Detected (NotDetected); Clostridium diff Toxin A/B PCR Not Detected (NotDetected); Cryptosporidium PCR Not Detected (NotDetected); Cyclospora cayetanensis PCR Not Detected (NotDetected); Entamoeba histolytica PCR Not Detected (NotDetected); Enteroaggregative E.coli(EAEC) Not Detected (NotDetected); Enteropathogenic E.coli (EPEC) Not Detected (NotDetected); Enterotoxigenic E.coli (ETEC) Not Detected (NotDetected); Giardia lamblia PCR Not Detected (NotDetected); Norovirus GI/GII PCR Not Detected (NotDetected); Plesiomonas shigelloides PCR Not Detected (NotDetected); Rotavirus A PCR Not Detected (NotDetected); Salmonella PCR Not Detected (NotDetected); Sapovirus PCR Not Detected (NotDetected); Shiga-like Toxin E.coli (STEC) Not Detected (NotDetected); Shigella/Enteroinvasive E.coli Not Detected (NotDetected); Vibrio cholerae PCR Not Detected (NotDetected); Vibrio species PCR Not Detected (NotDetected); Yersinia enterocolitica PCR Not Detected (NotDetected)
[2022-02-23 14:15] LABS: Anion Gap 3 (3-11); Blood Urea Nitrogen 21 mg/dl (6-23); Calcium 8.7 mg/dl (8.5-10.1); Carbon Dioxide 33 mmol/L (21-32); Chloride 102 mmol/L (98-107); Creatinine Clr Calc Pharmacy 70.2 ml/min; Est GFR (African American) 60.7 ml/min; Est GFR (Non-African American) 52.4 ml/min; Glucose 78 mg/dl (70-99(Fasting)); Magnesium 1.9 mg/dl (1.7-2.4); Phosphorus 2.4 mg/dl (2.5-4.9); Sodium 138 mmol/L (136-145)
[2022-02-23] MEDS ORDERED: LORazepam 2 MG/1 ML VIAL ONE (14:27)
[2022-02-23] MEDS: LORazepam 2 MG/1 ML VIAL IV PRN ×2 (14:30→14:38)
--- NOTE | 2022-02-23 15:15 | Hospitalist Progress Note ---
Date of Service February 23, 2022 Assessment & Plan (1) QUENTIN (acute kidney injury): Plan: 51yo male presenting with reported seizure-like activity. Found with QUENTIN - BUN=23 from 14 (01/26/22), Cr of 2.71 (from 12/12 on 01/26/22). Patient is urinating without difficulty. CK is WNL. Multifactorial with Lasix, lisinopril [employer] and decreased p.o. intake Hyperkalemic 02/23, potassium did normalize with fluids on recheck Creatinine downtrending -Monitor I/O's -Monitor BMP, electrolytes and renal function -Avoid nephrotoxic medications -Creatinine clearance improved to 70 (2) Seizure-like activity: Plan: - Patient with history of epilepsy. He is compliant with his medications - previously on Depakote 1000mg qAM and 1500mg qPM. Level measured today high at 163mcg/ml (range 50-100) As below patient has had observed episodes while on continuous monitoring without EEG epileptiform seizure; Discussed with [facility] neurology as noted below, episodes have been consistent with MARY KAY -Will decrease Depakote to 1000mg po BID -May continue Vimpat 50 mg p.o. twice daily -Maintain seizure precautions -Neurology followup outpatient - At approximately 220 called to bedside as patient had had seizure-like activi ty with clonic appearing contractions in his right hand, left hand, right and left lower extremity most prominent right hand. Patient initially not responsive to this, groggy and unresponsive to sternal rub. BSG 97, lactate normal, repeat BMP without hyperkalemia. Given history patient was given 2 mg IV Ativan with persistent tremors of the right hand and some increased in mental status. Patient was able to intermittently follow commands and open his eyes, although continued to have tremulous repetitive activity in hands and feet. Case was concerning for focal seizure versus nonepileptiform seizure. Patient did receive a second dose of milligram for continued activity and was discussed with neurology. Did reach out to [facility] and initially recommended patient for transfer to their facility. On chart review from their records they were able to obtain a EEG performed during observed activity which was consistent with what patient was displaying at the hospital. This evaluation was consistent with nonepileptiform activity. Given patient's clinical presentation and progression, was recommended that he can continue Vimpat, continue the dose decrease of his valproic acid. Additional Ativan was not recommended. Discussed precautions for overnight episodes, if patient is having recurrent episodes that are not completely generalized/similar to described above patient may be observed and treatment with benzodiazepines or phenobarbital/additional antiseizure meds is not recommended. With this review of records patient was recommended to be observed overnight, discharged with follow-up to neurology as outpatient. (3) Syncope: Plan: Patient reports episodes of "blacking out". Uncertain if these represent syncope vs seizure activity. He has had fairly extensive workup for this issue already including followup with Neurology and Cardiology. -Cardiac monitoring -Fall precautions -TTE: Normal LV size and function. EF 65 to 70%, normal wall motion. 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 He was treated at [facility] with urgent surgery and radiation. He had tumor regrowth demonstrated on repeat MRIs - had a repeat surgery by Dr. iLao in [place] in Fall 2015. Repeat imaging has since been clear. 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 Continue for 3 days, then decrease to normal dosing (5) Idiopathic polyneuropathy: Plan: Patient is being referred to 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 IBS -Stool PCR culture negative including C. difficile Patient does have nausea with meals? Anxiety/anticipatory versus motility Continue Zofran as needed P.o. as tolerated Follow clinically Plan: DVT prophylaxis: SCDs Admission and Anticipated Discharge Date Admission Date: February 22, 2022 Subjective At morning assessment patient is seen at the bedside, is anxious to be discharged from the hospital as ports he has follow-up at [facility] tomorrow with neurology and is anxious to make the meeting. With improving but not yet resolved QUENTIN, and hyperkalemic to 5.5 this morning. Patient denied any seizures overnight since admission to the ER. Denies acute fever, chills, shortness of breath, difficulty breathing, lightheadedness, dizziness, shaking, tremors. Does endorse some loose bowels today. Update: At approximately 220 called to bedside as patient had had seizure-like activity with clonic appearing contractions in his right hand, left hand, right and left lower extremity most prominent right hand. Patient initially not responsive to this, groggy and unresponsive to sternal rub. BSG 97, lactate normal, repeat BMP without hyperkalemia. Given history patient was given 2 mg IV Ativan with persistent tremors of the right hand and some increased in mental status. Patient was able to intermittently follow commands and open his eyes, although continued to have tremulous repetitive activity in hands and feet. Case was concerning for focal seizure versus nonepileptiform seizure. Patient did receive a second dose of milligram for continued activity and was discussed with neurology. Did reach out to [facility] and initially recommended patient for transfer to their facility. On chart review from their records they were able to obtain a EEG performed during observed activity which was consistent with what patient was displaying at the hospital. This evaluation was consisten t with nonepileptiform activity. Given patient's clinical presentation and progression, was recommended that he can continue Vimpat, continue the dose decrease of his valproic acid. Additional Ativan was not recommended. Discussed precautions for overnight episodes, if patient is having recurrent episodes that are not completely generalized/similar to described above patient may be observed and treatment with benzodiazepines or phenobarbital/additional antiseizure meds is not recommended. With this review of records patient was recommended to be observed overnight, discharged with follow-up to neurology as outpatient. Review of Systems Review of Systems: All systems reviewed & are unremarkable except as noted in Subjective Physical Exam Physical Exam: Morning assessment: General: A&Ox3. NAD. Cooperative. HEENT: Atraumatic, normocephalic. Vision/hearing grossly intact Pulm: CTAB A&P. -wheezes, -rales, -rhonchi. Symmetrical chest rise. No increase in work of breathing. No respiratory distress. Cardiac: RRR, -mrg. Radial pulses intact and symmetrical. Abdominal: Nontender, nondistended, soft. BS present. Afternoon episode: Patient with repetitive clonic motions of all 4 extremities but most prominent in the right hand and first 3 fingers. Initially does not arouse to sternal rub or answer questions/follow commands. Following 2 mg of Ativan patient slightly more arousable, clonic motions improved but persistent in right hand. Patient opens eyes and intermittently follows commands but appears sedated. Results & Data Results & Data ([facility]) Vital Signs (Past 12 Hours) Vital Signs Temp Pulse Pulse Resp BP Pulse Ox 02/23/22 14:23 36.8 C 71 18 121/78 95 02/23/22 11:14 36.6 C 65 18 144/76 H 95 02/23/22 07:19 36.5 C 61 18 133/83 96 PG Care Time/CCT Total # of Minutes Spent Total Time Spent with Patient: Total time spent is greater than 50% in coordination of care (as documented) at patient's floor/unit and/or counseling patient: Coding Level of Care Code 20670 Subseq Hosp Care Lvl 3 Diagnoses QUENTIN (acute kidney injury) N17.9 Seizure-like activity R56.9 Syncope R55 Secondary adrenal insufficiency E27.49 Idiopathic polyneuropathy G60.9 Anxiety F41.9 Essential tremor G25.0 BPH with obstruction/lower urinary tract symptoms N40.1; N13.8 Diarrhea R19.7
[2022-02-23] MEDS ORDERED: LORazepam 2 MG/1 ML VIAL IV STA (15:17)
[2022-02-23] MEDS ORDERED: LACOSAMIDE 50 MG in SODIUM CHLORIDE 0.9% 50 ML IV ONE (15:40)
[2022-02-23] MEDS: POT PHOSPHATE MONOBASIC W/ SOD TAB PO SCH (20:22)
[2022-02-23] MEDS: LACOSAMIDE 100 MG in SODIUM CHLORIDE 0.9% 50 ML IV SCH (20:23)
[2022-02-23] MEDS: LORazepam 1 MG TAB PO SCH (20:23)
[2022-02-24] MEDS: LEVOTHYROXINE SODIUM 200 MCG TABLET PO SCH (05:35)
[2022-02-24 07:59] LABS: BUN Creatinine Ratio 18.8 (10-20); Calcium 8.6 mg/dl (8.5-10.1); Creatinine Clr Calc Pharmacy 82.1 ml/min; Est GFR (African American) 73.6 ml/min; Est GFR (Non-African American) 63.5 ml/min
[2022-02-24] MEDS: INSULIN ASPART PER UNIT SC SCH ×4 (08:38→20:34)
[2022-02-24] MEDS: DESMOPRESSIN ACETATE 0.1 MG TAB PO SCH ×2 (08:44→20:35)
[2022-02-24] MEDS: HYDROCORTISONE 10 MG TAB PO SCH ×2 (08:45→20:34)
[2022-02-24] MEDS: CETIRIZINE HCL 10 MG TABLET PO SCH ×2 (08:45→20:36)
[2022-02-24] MEDS: DULoxetine HCL 30 MG CAP PO SCH (08:46)
[2022-02-24] MEDS: PROPRANOLOL HCL 60 MG LA CAP PO SCH ×2 (08:46→08:59)
[2022-02-24] MEDS: POT PHOSPHATE MONOBASIC W/ SOD TAB PO SCH ×2 (08:47→13:19)
[2022-02-24] MEDS: PANTOprazole 40 MG TAB PO SCH (08:47)
[2022-02-24] MEDS: MECLIZINE HCL 25 MG TAB PO SCH ×2 (08:47→20:35)
[2022-02-24] MEDS: ALFUZOSIN HCL 10 MG TAB PO SCH (08:47)
[2022-02-24] MEDS: GABAPENTIN 400 MG CAP PO SCH ×3 (08:48→20:36)
[2022-02-24] MEDS: INSULIN GLARGINE SOLOSTAR 100 UNITS/ML 3 ML PEN SC SCH ×2 (08:50→20:37)
[2022-02-24] MEDS: LACOSAMIDE 100 MG in SODIUM CHLORIDE 0.9% 50 ML IV SCH ×2 (09:09→20:59)
[2022-02-24] MEDS: TESTOSTERONE~ORDER AWAITING ACTION SCH ×2 (10:15→14:05)
[2022-02-24] MEDS ORDERED: KETOROLAC 30 MG/ML VIAL IV ONE (10:48)
--- NOTE | 2022-02-24 18:04 | Hospitalist Progress Note ---
Date of Service February 24, 2022 Assessment & Plan (1) QUENTIN (acute kidney injury): Plan: 51yo male presenting with reported seizure-like activity. Found with QUENTIN -now resolving H/o PNES CK is WNL. Multifactorial with Lasix, lisinopril [employer] and decreased p.o. intake Hyperkalemia resolved -Avoid nephrotoxic medications (2) Seizure-like activity: Plan: - Patient with history of epilepsy. He is compliant with his medications - previously on Depakote 1000mg qAM and 1500mg qPM. Level measured today high at 163mcg/ml (range 50-100) As below patient has had observed episodes while on continuous monitoring without EEG epileptiform seizure; Discussed with [facility] neurology as noted below, episodes have been consistent with PNES -Did decrease Depakote to 1000mg po BID - continue Vimpat 50 mg p.o. twice daily pending level -Maintain seizure precautions -Neurology followup outpatient - Previous provider did reach out to [facility] on chart review from their records they were able to obtain a EEG performed during observed activity which was consistent with what patient was displaying here. There records were consistent with nonepileptiform activity. Given patient's clinical presentation and progression, [facility] recommended that he can continue Vimpat, continue the dose decrease of his valproic acid. Additional Ativan was not recommended. If patient is having recurrent episodes that are not completely generalized/similar to described above patient may be observed and treatment with benzodiazepines or phenobarbital/additional antiseizure meds is not recommended. Follow-up to neurology as outpatient. (3) Syncope: Plan: Patient reports episodes of "blacking out". Uncertain if these represent syncope vs seizure activity. He has had fairly extensive workup for this issue already including followup with Neurology and Cardiology. -Cardiac monitoring -Fall precautions -TTE: Normal LV size and function. EF 65 to 70%, normal wall motion. 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 He was treated at [facility] with urgent surgery and radiation. He had tumor regrowth demonstrated on repeat MRIs - had a repeat surgery by Dr. Liao in [place] in Fall 2015. Repeat imaging has since been clear. 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 IBS -Stool PCR culture negative including C. difficile Plan: DVT prophylaxis: SCDs for persistent headache and prevous craniotomy, will have MRI of brain Admission and Anticipated Discharge Date Admission Date: February 22, 2022 Subjective Patient was lethargic difficult to arouse but when he arose he is appropriate. He complains of bitemporal headache. No visual changes. He had no additional seizure activity throughout the day today. He is agreeable to MRI of the brain there is persistent headache. He had no improvement after Toradol administration for his pain Review of Systems Review of Systems: Mild distress and fatigue bi temporal headache, no visual changes no speech or swallowing issues no chest pain, pressure or palpitations no shortness of breath, cough or wheezes no abdominal pain, nausea or vomiting, diarrhea or constipation no dysuria, hematuria or frequency no focal joint pain or swelling no back pain, CVA tenderness or radicular pain no bruising, bleeding or rashes no focal signs of weakness or numbness or altered sensation no complaints of anxiety or depression.. Physical Exam Physical Exam: The patient appeared well nourished and normally developed. Vital signs as documented. Head exam is normocephalic atraumatic, no specific temporal artery pain Neck is without JVD, thyromegaly, or carotid bruits. Lungs are clear to auscultation, no focal loss of breath sounds Cardiac exam, Rhythm is regular.. No murmurs, rubs or gallops. Abdominal exam reveals normal bowel sounds, soft non tender, no masses Extremities are nonedematous and both pedal pulses are present Neurologic exam is alert and oriented, no focal loss of strength or sensation Skin is without bruises or rashes Psychologically is with concerns for psychologic component to his symptom complex Results & Data Results & Data ([facility]) Vital Signs (Past 12 Hours) Vital Signs Temp Pulse Pulse Resp BP Pulse Ox 02/24/22 15:19 97.9 F 63 16 116/72 95 02/24/22 11:46 98.1 F 60 18 117/75 95 02/24/22 08:00 58 L 02/24/22 07:58 97.5 F L 54 L 16 121/80 98 PG Care Time/CCT Total # of Minutes Spent Total Time Spent with Patient: Total time spent is greater than 50% in coordination of care (as documented) at patient's floor/unit and/or counseling patient: Coding Level of Care Code 81082 Subseq Hosp Care Lvl 3 Diagnoses QUENTIN (acute kidney injury) N17.9 Seizure-like activity R56.9 Syncope R55 Secondary adrenal insufficiency E27.49 Idiopathic polyneuropathy G60.9 Anxiety F41.9 Essential tremor G25.0 BPH with obstruction/lower urinary tract symptoms N40.1; N13.8 Diarrhea R19.7
[2022-02-24] MEDS: LORazepam 1 MG TAB PO SCH (20:43)
[2022-02-24] MEDS ORDERED: GADOBUTROL 65ML VIAL IV ONE (22:56)
[2022-02-25] MEDS: TESTOSTERONE~ORDER AWAITING ACTION SCH ×3 (00:17→15:56)
[2022-02-25] MEDS: LEVOTHYROXINE SODIUM 200 MCG TABLET PO SCH (06:30)
--- NOTE | 2022-02-25 08:59 | Magnetic Resonance Report ---
MR brain wo/w con CLINICAL HISTORY: h/o pit resection, unremitting h/a TECHNIQUE: Multiplanar and multisequence MR images of the brain were obtained prior to and following administration of gadolinium contrast. Comparison: Comparison is made to MRI brain 12/07/2021 FINDINGS: No abnormal restricted diffusion is identified. The white matter is unremarkable. The ventricular sys tem is normal in appearance. There are no masses, mass effect, or midline shift. No abnormal enhancem ent is seen. There is no evidence of acute intraparenchymal hemorrhage. The foramen magnum is noted. Patient is status post pituitary resection. Flow voids of the major intracranial arterial vessels are identified. The imaged portions of the para nasal sinuses, mastoid air cells, and orbits are unremarkable. IMPRESSION: No acute abnormalities are seen to explain headache. Stable negative foramen magnum. Postsurgical roddy nges of pituitary resection are seen. ACT 112: Negative or not required by law. Electronically signed by: David Ramirez M.D. 02/25/2022 8:57 AM
[2022-02-25] MEDS: GABAPENTIN 400 MG CAP PO SCH ×2 (09:37→15:40)
[2022-02-25] MEDS: ALFUZOSIN HCL 10 MG TAB PO SCH (09:37)
[2022-02-25] MEDS: HYDROCORTISONE 10 MG TAB PO SCH (09:37)
[2022-02-25] MEDS: PROPRANOLOL HCL 60 MG LA CAP PO SCH (09:38)
[2022-02-25] MEDS: MECLIZINE HCL 25 MG TAB PO SCH (09:38)
[2022-02-25] MEDS: PANTOprazole 40 MG TAB PO SCH (09:38)
[2022-02-25] MEDS: CETIRIZINE HCL 10 MG TABLET PO SCH (09:38)
[2022-02-25] MEDS: DESMOPRESSIN ACETATE 0.1 MG TAB PO SCH (09:38)
[2022-02-25] MEDS: DULoxetine HCL 30 MG CAP PO SCH (09:38)
[2022-02-25] MEDS: INSULIN GLARGINE SOLOSTAR 100 UNITS/ML 3 ML PEN SC SCH (09:39)
[2022-02-25] MEDS: INSULIN ASPART PER UNIT SC SCH ×2 (09:40→12:30)
[2022-02-25] MEDS: LACOSAMIDE 100 MG in SODIUM CHLORIDE 0.9% 50 ML IV SCH (09:52)
--- NOTE | 2022-02-25 15:54 | Discharge Summary ---
Date of Service February 25, 2022 Admission HPI Per Admitting Provider Anders Leiva is a 51yo male with complex medical history presenting with worsening seizure activity. Patient with history of epilepsy. He follows with Neurology - last seen on 01/29/22. He is compliant with his medications - Divalproex 1000mg qAM and 1500mg qPM. He reports increasing seizure frequency over the last couple of months. He typically has a seizure every couple of days. He reports he had 7 episodes of seizure-like activity today prior to arrival. He reports being awake and alert during the episodes but having no control over his movements. Reports tonic-clonic movements of bilateral arms an d legs. He denies prodrome. Has some mild confusion after the episodes. Has had fecal incontinence as well. Additionally, patient continues to have episodes of blacking out. He reports "blacking out". Can occur at any time in any position with no warning. These events have been discussed with Neurology as well as cardiology. Workup to include tilt-table testing, 30 day cardiac monitoring have been unrevealing. Patient denies chest pain, palpitations, SOB or prodrome. Feels fine after the black outs. These have been going on since July 2021 but have increased in frequency. Additionally the patient reports poor appetite, nausea with vomiting immediately following meals and watery diarrhea after eating. He reports losing appx 25# unintentionally over the last month or two. (Per weight review in chart - please consider different scales/degree of dress/shoes/etc - patient weighs 105.8kg today and was 113kg on 12/29/21). He denies difficulty chewing, dysphagia, odynophagia. Denies fever, chills, chest pain, cough, SOB, abdominal pain, dysuria. States he is able to urinate without difficulty. Occasionally dark yellow in color. Patient has not been vaccinated against Covid-19. His Covid-19 testing today from the ER is NEGATIVE ER Course: Vimpat 50mg, NSS x 1L then 125mL/hr started. Principal Diagnosis PNES Acute kidney injury headache Discharge Exam The patient appeared well Vital signs as documented. Lungs are clear to auscultation and appear unlabored Cardiac exam, Rhythm is regular.. No murmurs, rubs or gallops. Abdominal exam reveals normal bowel sounds, soft non tender, no masses Extremities are nonedematous and both pedal pulses are normal. Neurologic exam is alert and oriented, no focal loss of strength or sensation Skin is without bruises or rashes Psychologically is without concerns for anxiety or depression. Discharge Data Allergies Allergy/AdvReac Type Severity Reaction Status Date / Time Iodinated Contrast Media Allergy Intermediate face/eye Verified 02/22/22 20:45 swelling Quinolones Allergy Intermediate HIVES Verified 02/22/22 20:45 Consultations 02/22/22 19:26 ED Decision to Admit Stat 02/22/22 22:37 Consult Behavioral Health Liaison Routine Ordered Studies 02/22/22 15:13 CT head/brain wo con Stat 02/24/22 16:45 MR brain wo/w con Routine Hospital Course (1) QUENTIN (acute kidney injury): 51yo male presenting with reported seizure-like activity. Found with QUENTIN -now resolving H/o PNES CK is WNL. Multifactorial with Lasix, lisinopril [employer] and decreased p.o. intake Hyperkalemia resolved - will hold lisinopril until pcp follow up, encourage po intake (2) Seizure-like activity: - Patient with history of epilepsy. He is compliant with his medications - previously on Depakote 1000mg qAM and 1500mg qPM. Level measured today high at 163mcg/ml (range 50-100) As below patient has had observed episodes while on continuous monitoring without EEG epileptiform seizure; Discussed with [facility] neurology as noted below, episodes have been consistent with PNES - Depakote to 1000mg po BID - continue Vimpat 50 mg p.o. twice daily pending level -Neurology followup outpatient - Previous provider did reach out to [facility] on chart review from their records they were able to obtain a EEG performed during observed activity which was consistent with what patient was displaying here. There records were consistent with nonepileptiform activity. Given patient's clinical presentation and progression, [facility] recommended that he can continue Vimpat, continue the dose decrease of his valproic acid. Additional Ativan was not recommended. Follow-up to neurology as outpatient. (3) Syncope: Patient reports episodes of "blacking out". Uncertain if these represent syncope vs seizure activity. He has had fairly extensive workup for this issue already including followup with Neurology and Cardiology. -TTE: Normal LV size and function. EF 65 to 70%, normal wall motion. 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 He was treated at [facility] with urgent surgery and radiation. He had tumor regrowth demonstrated on repeat MRIs - had a repeat surgery by Dr. Liao in [place] in Fall 2015. Repeat imaging has since been clear. 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 IBS -Stool PCR culture negative including C. difficile Total Time Total Time Spent Total Time Spent (In Minutes): It required greater than 30 minutes to prepare this patient for discharge Discharge Plan Discharge Items Patient Disposition: Home - Self-Care Reason For Visit: SYNCOPE, SEIZURES Discharge Diagnosis: PNES headache, no acute changes seen on MRI or Ct of head acute kidney injury secondary to dehydration, resolved pre existing cazares hypo pituitary condition Activity: Per Instructions section Non-emergency contact: Primary Care Provider Call non-emergency contact if: your symptoms worsen Follow-up/Referrals: Larry Amaral MD [Primary Care Provider] - Diet: Regular Addtl Attending Provider Instructions: There is no worsening of any of your brain imaging, please continue your home medicines and follow up with a neurologist of your choice. please be sure to continue to hydrate, see your family doctor after discharge for lab recheck do not restart your lisinopril and lasix until you see your doctor for a recheck Pending Studies at Discharge: Yes Studies:: vimpat level Stand-Alone Forms: My [facility], Smoking Cessation Medications and DC Order Prescriptions: New lacosamide [Vimpat] 50 mg tablet 50 mg PO BID 7 Days Qty: 30 RF: 0 Continued Norditropin FlexPro 5 mg/1.5 mL (3.3 mg/mL) pen injector 0.3 mg SQ PM Qty: 3 RF: 11 (DME) blood pressure monitor Kit See Rx Instructions .Route Qty: 1 RF: 0 (DME) blood sugar diagnostic Strip See Rx Instructions .Route Qty: 50 RF: 3 (DME) lancets [OneTouch Delica Lancets] 33 gauge misc See Rx Instructions .Route Qty: 100 RF: 3 fluticasone propionate [Flonase Allergy Relief] 50 mcg/actuation spray,suspension 1 spray intranasal HS PRN (Reason: allergy symptoms) Qty: 16 RF: 0 dutasteride [Avodart] 0.5 mg capsule 0.5 mg PO QAM Qty: 90 RF: 2 alfuzosin 10 mg tablet extended release 24 hr 10 mg PO QAM Qty: 90 RF: 2 desmopressin 0.2 mg tablet 0.2 mg PO BID Qty: 180 RF: 3 testosterone 20.25 mg/1.25 gram (1.62 %) gel in metered-dose pump 2 pump TOP PM Qty: 75 RF: 5 cholecalciferol (vitamin D3) 50 mcg (2,000 unit) capsule 50 mcg PO DAILY Qty: 30 RF: 7 metformin 1,000 mg tablet 1,000 mg PO BID Qty: 60 RF: 1 Botox 200 unit recon soln See Rx Instructions IM .COMPLEX Qty: 1 RF: 3 propranolol 120 mg capsule,extended release 24 hr 120 mg PO DAILY Qty: 30 RF: 8 ondansetron HCl 4 mg tablet 4 mg PO Q8H PRN (Reason: nausea and vomiting) Qty: 20 RF: 1 cyclobenzaprine 10 mg tablet 10 mg PO BID PRN (Reason: muscle spasm) 30 Days Qty: 60 RF: 1 meclizine 25 mg tablet 25 mg PO BID Qty: 180 RF: 1 pantoprazole 40 mg tablet,delayed release (DR/EC) 40 mg PO QAM Qty: 90 RF: 3 levothyroxine 200 mcg tablet 200 mcg PO DAILY Qty: 90 RF: 3 cetirizine [Zyrtec] 10 mg tablet 10 mg PO BID Qty: 60 RF: 3 lorazepam 0.5 mg tablet 1 mg PO HS RF: 0 multivitamin Tablet 1 tab PO QAM RF: 0 Nurtec ODT 75 mg tablet,disintegrating 75 mg PO DAILY PRN (Reason: Migraine Headache) RF: 0 insulin aspart U-100 [Novolog U-100 Insulin aspart] 100 unit/mL Solution 1 sliding scale dose SUBCUT TID PRN (Reason: Hyperglycemia) RF: 0 hydrocortisone 10 mg tablet 20 mg PO QAM RF: 0 hydrocortisone 10 mg tablet 10 mg PO QPM RF: 0 celecoxib 200 mg capsule 200 mg PO QAM PRN (Reason: Pain) RF: 0 albuterol sulfate 90 mcg/actuation HFA aerosol inhaler 1 inh inhalation QID PRN (Reason: Shortness Of Breath Or Wheezing) RF: 0 gabapentin 400 mg capsule 400 mg PO TID RF: 0 duloxetine 30 mg capsule,delayed release(DR/EC) 30 mg PO QAM RF: 0 Changed divalproex [Depakote] 500 mg tablet,delayed release (DR/EC) 1,000 mg PO BID 30 Days Qty: 150 RF: 5 Discontinued furosemide [Lasix] 40 mg tablet 40 mg PO QAM Qty: 90 RF: 3 lisinopril 5 mg tablet 5 mg PO PM RF: 0 Discharge Orders: Discharge Order (Routine); Ordered 02/25/22 Ordered By: Talha Willingham Admission Data Admit Date/Time: 02/22/22 20:15 Attending Provider: Talha Willingham Admit Provider: Siobhan Michele Primary Care Provider: Larry Amaral Other Providers: Siobhan Michele Other Interventions: Discharge Summary Assessment (RN) Last Done: 02/25/22 15:43 Coding Level of Care Code D/C DAY MANAGEMENT >30 MINS Diagnoses QUENTIN (acute kidney injury) N17.9 Seizure-like activity R56.9 Syncope R55 Secondary adrenal insufficiency E27.49 Idiopathic polyneuropathy G60.9 Anxiety F41.9 Essential tremor G25.0 BPH with obstruction/lower urinary tract symptoms N40.1; N13.8 Diarrhea R19.7
== END 2022-02-25 16:28 | disposition home or self-care (01) | DRG 683 ==
LOC: ED 14:47 → SUATTDRO 20:15 → 2N 20:15

== ENCOUNTER 2022-02-27 18:57 | Observation (INO) ==
[2022-02-27] MEDS ORDERED: SODIUM CHLORIDE 0.9% 1000ML 1,000 ML IV SCH (20:00)
--- NOTE | 2022-02-27 20:00 | Emergency Department Note ---
Impression & Plan Acute kidney injury, Seizure-like activity, Abdominal pain, Syncope and collapse ED Provider Note Provider: Travis Tillman MD DATE OF SERVICE: 02/27/2022 CHIEF COMPLAINT: Seizure events/syncope HISTORY OF PRESENT ILLNESS: Patient is a 51-year-old gentleman complex medical history including a history of pituitary lesion, anxiety, polyneuropathy, epilepsy, nonepileptiform events, and BPH presenting here today via ambulance from his home. Patient lives by himself. Reports last night in the middle of the night he went to the bathroom and collapsed in the bathroom. States he has had at least 5 episodes at home and EMS report 2 additional episodes less than a minute each in the ambulance where he had seizure-like activity. Patient describes feeling more related palpitation his legs feel weak and then he loses consciousness. Patient states he has some general aches in his head, chest, and abdomen. Mild frontal headache denies vomiting or diarrhea currently. Patient states has been taking his medications. Had some small amount of water but denies any significant food intake due to these events. Patient states he feels somewhat fatigued currently. Patient has had significant recent work-up here at the hospital as well as further outpatient work-up here and at [facility]. REVIEW OF SYSTEMS: A total of 10 review of systems was obtained and negative except as stated above in the HPI. PAST MEDICAL HISTORY: As noted above MEDICATIONS: Reviewed home medication SOCIAL HISTORY: Denies drug or alcohol usage, lives by himself PHYSICAL EXAM: GENERAL: alert and oriented in no acute distress on stretcher fatigued in appearance Head: normocephalic and atraumatic EYES: No injection, discharge or icterus. PERRL, EOMI. NECK: Trachea midline. Supple. ENT: Mucous membranes pink and moist. No evidence of tongue biting. LUNGS: Airway patent. No retractions. Breath sounds clear with good air entry bilaterally. HEART: Regular rate and rhythm. No chest wall tenderness ABDOMEN: Soft minimal diffuse tenderness. SKIN: Acyanotic, warm, dry, without rashes EXTREMITIES: Without swelling, tenderness or deformity NEUROLOGICAL: No focal deficits. No aphasia. No facial droop or slurred speech. Normal strength and tone in the extremities. Sensation to gross touch normal. EK bpm normal sinus rhythm. No PVC or PAC. No acute ST segment elevation or depression. QTC 414 CONTINUOUS CARDIAC MONITORING: was ordered and showed a heart rate of 60s-80s bpm in normal sinus rhythm GCS 15. Patient's laboratory studies and imaging reviewed. Differential includes Epilepsy, infection, hypoglycemia, electrolyte abnormalities, cardiac sources, intracerebral event, trauma, toxicologic, neurologic, syncope, as well as other pathologies. IMPRESSION/MEDICAL DECISION MAKING: Reviewed recent admission record. Has a history of epileptiform and nonepileptiform seizure events. Multiple seizure syncope events today. Somewhat fatigued upon arrival but no focal deficits. CT head completed given his reported history of some falls with his complaints of abdominal discomfort CT abdomen pelvis obtained. Basic labs and a Depakote level were sent. Prolactin level was sent. Depakote level is therapeutic. Basic labs without severe abnormalities. CT reports noted from the radiology without significant findings. Patient did have another episode he was given a small amount of Ativan as nursing believed it was a true seizure although by the time I arrived he was "postictal "resting but arousable. Prolactin later returns not significantly elevated given his multiple episodes at a lower suspicion that this is recurrent true epileptic seizures. Laboratory studies however do significantly note an elevated creatinine again. Patient states has been drinking fluids okay. No evidence of hydronephrosis on the imaging. Given some IV fluid here. Given his multiple seizure-like activity episodes with the QUENTIN, feel that observation for improvement of his renal function should be pursued as he lives alone. Patient was in agreement. Hospitalist contacted. DIAGNOSIS: QUENTIN, seizure-like activity, abdominal pain, syncope DISPOSITION: Hospitalist will evaluate Patient was agreeable with this plan. Past Med/Surg History Medical History (Updated 02/27/22 @ 21:16 by Travis Tillman M.D.) Arthritis Bladder mass benign BPH with obstruction/lower urinary tract symptoms Depression Diverticular disease DM type 2 (diabetes mellitus, type 2) Encounter for pre-operative examination Growth hormone deficiency Hematuria resolved History of COVID-19 10/2021 - fatigue; resolved. Insomnia Kidney stones HX Lumbar radiculopathy Lumbar spine pain Migraine without aura and without status migrainosus, not intractable Mitral valve regurgitation follows with Dr. Phillips Obstructive sleep apnea of adult cpap Pituitary diabetes insipidus Pituitary hypogonadism Pituitary hypothyroidism Pituitary neoplasm Prostate mass benign Rectal bleeding Secondary adrenal insufficiency Seizure disorder last seizure grand mal > gets petite mal more frequent >gets grand mal 3-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 > follows Dr. José Luis Sensorineural hearing loss of both ears SOB (shortness of breath) on exertion Thrombocytopenia Tremor Surgical History History of bladder surgery remove mass History of brain surgery x2---[address] [facility] [place], 2016 @ [facility]--for brain tumors History of cardiac cath 07/2021 - no stents History of colonoscopy History of esophagogastroduodenoscopy (EGD) History of lithotripsy History of prostate surgery remove mass History of tooth extraction History of wisdom tooth extraction S/P epidural steroid injection Status post right foot surgery replaced 5th metatarsal--hardware in place Family History Grandmother (Paternal) Family history of diabetes mellitus Aunt Family history of diabetes mellitus Uncle Family history of diabetes mellitus Father Prostate cancer Heart disease Mother Cardiac disorder Grandmother (Maternal) Myocardial infarction Other Asthma Cancer Hypertension No family history of adverse response to anesthesia No family history of bleeding disorder Stroke Denies family history of Ovarian cancer Breast cancer Colorectal cancer Social History Smoking Status: Current every day smoker Tobacco Type: Smokeless Tobacco (Dip or Chew) Second Hand Exposure: Yes; Hx Alcohol Use: No Hx Substance Use: No Preferred Language: Korean Communication Ability: Effective Visual Impairment: No Limitations Hearing Ability: Normal 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 Beliefs That Will Affect Care: None marital status: Single Current Living Situation: Alone current occupational status: unemployed Feels Safe at Home: Yes Childhood Exposure to Second-Hand Smoke: Yes (parents smoked) Seatbelt Use: always Assistive Devices: None Allergies Allergies Allergy/AdvReac Type Severity Reaction Status Date / Time Iodinated Contrast Media Allergy Intermediate face/eye Verified 02/27/22 22:35 swelling Quinolones Allergy Intermediate HIVES Verified 02/27/22 22:35 Home Meds Home Medications Medication Instructions Recorded Confirmed multivitamin 1 tab PO QAM 07/12/19 02/27/22 celecoxib 200 mg capsule 200 mg PO QAM PRN 02/23/21 02/27/22 albuterol sulfate 90 mcg/actuation 1 inh INHALATION QID PRN 07/28/21 02/27/22 aerosol inhaler duloxetine 30 mg capsule,delayed 30 mg PO QAM 08/11/21 02/27/22 release gabapentin 400 mg capsule 400 mg PO TID 08/11/21 02/27/22 rimegepant 75 mg disintegrating 75 mg PO DAILY PRN 08/20/21 02/27/22 tablet (Nurtec ODT) lorazepam 0.5 mg tablet 1 mg PO HS tab 09/04/21 02/27/22 insulin aspart U-100 100 unit/mL 1 sliding scale dose SUBCUT TID PRN 12/29/21 02/27/22 subcutaneous solution (Novolog U-100 Insulin aspart) hydrocortisone 10 mg tablet 10 mg PO QPM 02/22/22 02/27/22 hydrocortisone 10 mg tablet 20 mg PO QAM 02/22/22 02/27/22 divalproex 500 mg tablet,delayed 1,500 mg PO .DAILY@MERYL MEAL 02/27/22 02/27/22 release divalproex 500 mg tablet,delayed 1,000 mg PO QAM 02/27/22 02/27/22 release (Depakote) Previous Rx's Medication Instructions Recorded cyclobenzaprine 10 mg tablet 10 mg PO BID PRN 30 Days #60 tab 09/18/20 somatropin 5 mg/1.5 mL (3.3 mg/mL) 0.3 mg SQ PM #3 ml 06/22/21 subcutaneous pen injector (Norditropin FlexPro) cetirizine 10 mg tablet (Zyrtec) 10 mg PO BID #60 tab 08/05/21 blood pressure monitor #1 ea 08/06/21 blood sugar diagnostic #50 ea 08/17/21 lancets 33 gauge (OneTouch Delica #100 ea 08/17/21 Lancets) fluticasone propionate 50 1 spray INTRANASAL HS PRN #16 g 10/23/21 mcg/actuation nasal spray,suspension (Flonase Allergy Relief) alfuzosin 10 mg tablet,extended 10 mg PO QAM #90 tab 11/12/21 release 24 hr dutasteride 0.5 mg capsule 0.5 mg PO QAM #90 cap 11/12/21 (Avodart) desmopressin 0.2 mg tablet 0.2 mg PO BID #180 tab 11/17/21 meclizine 25 mg tablet 25 mg PO BID #180 tab 11/17/21 pantoprazole 40 mg tablet,delayed 40 mg PO QAM #90 tab 11/17/21 release testosterone 20.25 mg/1.25 gram 2 pump TOP PM #75 g 11/25/21 (1.62 %) transdermal gel pump cholecalciferol (vitamin D3) 50 50 mcg PO DAILY #30 cap 12/17/21 mcg (2,000 unit) capsule metformin 1,000 mg tablet 1,000 mg PO BID #60 tab 12/22/21 onabotulinumtoxinA 200 unit See Rx Instructions IM .COMPLEX #1 12/25/21 solution for injection (Botox) ea levothyroxine 200 mcg tablet 200 mcg PO DAILY #90 tab 02/03/22 propranolol 120 mg capsule,24 120 mg PO DAILY #30 cap 02/12/22 hr,extended release ondansetron HCl 4 mg tablet 4 mg PO Q8H PRN #20 tab 02/17/22 lacosamide 50 mg tablet (Vimpat) 50 mg PO BID 7 Days #30 tab 02/22/22 Results & Data (ED) Vital Signs Vital Signs - 24 hr 02/27/22 19:15 02/27/22 19:55 02/27/22 19:57 Temperature 37.4 C Temperature Source Oral Pulse Rate 81 Pulse Rate [Apical] 73 Respiratory Rate 17 16 Respiratory Effort / Characteristics Non-Labored Spontaneous Non-Labored Spontaneous Respiratory Depth Normal Normal Respiratory Pattern Regular Blood Pressure 105/63 Blood Pressure [Left Arm] 110/69 Blood Pressure Mean 77 Blood Pressure Mean [Left Arm] 82 Blood Pressure Position [Left Arm] Semi-fowlers Pulse Oximetry 95 93 93 Oxygen Delivery Method Room Air Room Air Room Air Oxygen Flow Rate Sepsis Recent Fever Within 48 Hours No Sepsis New/Unexplained Change in Mental Status No Sepsis Action Taken by Nursing No Action Required Oxygen Flow Rate - Titration Pulse Oximetry Post Tiitration 02/27/22 20:51 02/27/22 22:00 02/27/22 22:24 Temperature Temperature Source Pulse Rate Pulse Rate [Apical] 67 65 Respiratory Rate 14 14 Respiratory Effort / Characteristics Non-Labored Spontaneous Respiratory Depth Normal Respiratory Pattern Regular Blood Pressure Blood Pressure [Left Arm] 115/64 120/67 Blood Pressure Mean Blood Pressure Mean [Left Arm] 81 84 Blood Pressure Position [Left Arm] Semi-fowlers Semi-fowlers Pulse Oximetry 98 98 91 Oxygen Delivery Method Room Air Room Air Room Air Nasal Cannula Oxygen Flow Rate 0 Sepsis Recent Fever Within 48 Hours Sepsis New/Unexplained Change in Mental Status Sepsis Action Taken by Nursing Oxygen Flow Rate - Titration 2 Pulse Oximetry Post Tiitration 98 02/27/22 23:07 Temperature Temperature Source Pulse Rate Pulse Rate [Apical] 61 Respiratory Rate 18 Respiratory Effort / Characteristics Respiratory Depth Respiratory Pattern Blood Pressure Blood Pressure [Left Arm] 120/64 Blood Pressure Mean Blood Pressure Mean [Left Arm] 82 Blood Pressure Position [Left Arm] Pulse Oximetry 98 Oxygen Delivery Method Nasal Cannula Oxygen Flow Rate 2 Sepsis Recent Fever Within 48 Hours Sepsis New/Unexplained Change in Mental Status Sepsis Action Taken by Nursing Oxygen Flow Rate - Titration Pulse Oximetry Post Tiitration Laboratory Data Result diagrams: 02/27/22 19:14 02/27/22 19:14 Lab Results 02/27/22 02/27/22 02/27/22 Range/Units 19:14 19:14 19:14 WBC 10.55 (4.8-10.8) K/uL RBC 5.00 (4.7-6.1) M/uL Hgb 16.3 (14.0-18.0) g/dL Hct 46.3 (42-52) % MCV 92.6 (80-100) fL MCH 32.6 (25-34) pg MCHC 35.2 (32-36) g/dL RDW Std Deviation 45.6 (36.4-46.3) fL RDW Coeff of Yanira 13.6 (11.5-14.5) % Plt Count 173 (130-400) K/uL MPV 9.7 (7.4-10.4) fL Immature Gran % (Auto) 1.0 % Neut % (Auto) 58.7 % Lymph % (Auto) 28.8 % Mckinley % (Auto) 9.9 % Eos % (Auto) 1.2 % Baso % (Auto) 0.4 % Neut # (Auto) 6.19 (1.4-6.5) K/uL Lymph # (Auto) 3.04 (1.2-3.4) K/uL Mckinley # (Auto) 1.04 H (0.11-0.59) K/uL Eos # (Auto) 0.13 (0-0.5) K/uL Baso # (Auto) 0.04 (0-0.2) K/uL Immature Gran # (Auto) 0.11 H (0.00-0.02) K/uL Sodium 140 (136-145) mmol/L Potassium 4.2 (3.5-5.1) mmol/L Chloride 101 (98-107) mmol/L Carbon Dioxide 28 (21-32) mmol/L Anion Gap 11 (3-11) BUN 32 H (6-23) mg/dl Creatinine 2.45 H (0.6-1.4) mg/dl Est Cr Clr Drug Dosing 44.1 ml/min Est GFR ( Amer) 33.6 ml/min Est GFR (Non-Af Amer) 29.0 ml/min BUN/Creatinine Ratio 13.1 (10-20) Glucose 82 (70-99(Fasting)) mg/dl POC Glucose (70-99) mg/dl Calcium 9.8 (8.5-10.1) mg/dl Magnesium 1.7 (1.7-2.4) mg/dl Total Bilirubin 0.7 (0.2-1.0) mg/dl AST 37 (13-39) U/L ALT 40 (7-52) U/L Alkaline Phosphatase 55 (34-104) U/L Total Creatine Kinase 33 (30-223) U/L Troponin I < 0.03 (0-0.04) ng/ml Total Protein 6.8 (6.0-8.3) gm/dl Albumin 4.4 (3.4-5.0) gm/dl Globulin 2.4 L (2.5-4.0) gm/dl Albumin/Globulin Ratio 1.8 (0.9-2) TSH 0.207 L (0.300-4.500) uIu/ml Free T4 1.10 (0.61-1.60) ng/dl Prolactin ng/ml Urine Color Urine Appearance (Clear) Urine pH (4.5-7.5) Ur Specific Grahn (1.000-1.030) Urine Protein (Negative) Urine Glucose (UA) (Negative) Urine Ketones (Negative) Urine Blood (Negative) Urine Nitrite (Negative) Urine Bilirubin (Negative) Urine Urobilinogen (Negative) Ur Leukocyte Esterase (Negative) Urine WBC (Auto) (0-5) /hpf Urine RBC (Auto) (0-4) /hpf U Hyaline Cast (Auto) (0-5) /lpf U Epithel Cells (Auto) (0-5) /lpf Urine Bacteria (Auto) (Negative) Valproic Acid (50-100) mcg/ml SARS-CoV-2, RNA, NAAT (NEGATIVE) 02/27/22 02/27/22 02/27/22 Range/Units 19:14 19:14 20:13 WBC (4.8-10.8) K/uL RBC (4.7-6.1) M/uL Hgb (14.0-18.0) g/dL Hct (42-52) % MCV (80-100) fL MCH (25-34) pg MCHC (32-36) g/dL RDW Std Deviation (36.4-46.3) fL RDW Coeff of Yanira (11.5-14.5) % Plt Count (130-400) K/uL MPV (7.4-10.4) fL Immature Gran % (Auto) % Neut % (Auto) % Lymph % (Auto) % Mckinley % (Auto) % Eos % (Auto) % Baso % (Auto) % Neut # (Auto) (1.4-6.5) K/uL Lymph # (Auto) (1.2-3.4) K/uL Mckinley # (Auto) (0.11-0.59) K/uL Eos # (Auto) (0-0.5) K/uL Baso # (Auto) (0-0.2) K/uL Immature Gran # (Auto) (0.00-0.02) K/uL Sodium (136-145) mmol/L Potassium (3.5-5.1) mmol/L Chloride (98-107) mmol/L Carbon Dioxide (21-32) mmol/L Anion Gap (3-11) BUN (6-23) mg/dl Creatinine (0.6-1.4) mg/dl Est Cr Clr Drug Dosing ml/min Est GFR ( Amer) ml/min Est GFR (Non-Af Amer) ml/min BUN/Creatinine Ratio (10-20) Glucose (70-99(Fasting)) mg/dl POC Glucose (70-99) mg/dl Calcium (8.5-10.1) mg/dl Magnesium (1.7-2.4) mg/dl Total Bilirubin (0.2-1.0) mg/dl AST (13-39) U/L ALT (7-52) U/L Alkaline Phosphatase (34-104) U/L Total Creatine Kinase (30-223) U/L Troponin I (0-0.04) ng/ml Total Protein (6.0-8.3) gm/dl Albumin (3.4-5.0) gm/dl Globulin (2.5-4.0) gm/dl Albumin/Globulin Ratio (0.9-2) TSH (0.300-4.500) uIu/ml Free T4 (0.61-1.60) ng/dl Prolactin 1.22 ng/ml Urine Color Dark Yellow Urine Appearance Clear (Clear) Urine pH 5.0 (4.5-7.5) Ur Specific Grahn 1.017 (1.000-1.030) Urine Protein Negative (Negative) Urine Glucose (UA) Negative (Negative) Urine Ketones Trace H (Negative) Urine Blood Negative (Negative) Urine Nitrite Negative (Negative) Urine Bilirubin Negative (Negative) Urine Urobilinogen Negative (Negative) Ur Leukocyte Esterase 1+ H (Negative) Urine WBC (Auto) 5-10 H (0-5) /hpf Urine RBC (Auto) 0-4 (0-4) /hpf U Hyaline Cast (Auto) 10-30 H (0-5) /lpf U Epithel Cells (Auto) 20-30 H (0-5) /lpf Urine Bacteria (Auto) Negative (Negative) Valproic Acid 100 (50-100) mcg/ml SARS-CoV-2, RNA, NAAT (NEGATIVE) 02/27/22 02/27/22 Range/Units 20:52 22:37 WBC (4.8-10.8) K/uL RBC (4.7-6.1) M/uL Hgb (14.0-18.0) g/dL Hct (42-52) % MCV (80-100) fL MCH (25-34) pg MCHC (32-36) g/dL RDW Std Deviation (36.4-46.3) fL RDW Coeff of Yanira (11.5-14.5) % Plt Count (130-400) K/uL MPV (7.4-10.4) fL Immature Gran % (Auto) % Neut % (Auto) % Lymph % (Auto) % Mckinley % (Auto) % Eos % (Auto) % Baso % (Auto) % Neut # (Auto) (1.4-6.5) K/uL Lymph # (Auto) (1.2-3.4) K/uL Mckinley # (Auto) (0.11-0.59) K/uL Eos # (Auto) (0-0.5) K/uL Baso # (Auto) (0-0.2) K/uL Immature Gran # (Auto) (0.00-0.02) K/uL Sodium (136-145) mmol/L Potassium (3.5-5.1) mmol/L Chloride (98-107) mmol/L Carbon Dioxide (21-32) mmol/L Anion Gap (3-11) BUN (6-23) mg/dl Creatinine (0.6-1.4) mg/dl Est Cr Clr Drug Dosing ml/min Est GFR ( Amer) ml/min Est GFR (Non-Af Amer) ml/min BUN/Creatinine Ratio (10-20) Glucose (70-99(Fasting)) mg/dl POC Glucose 83 (70-99) mg/dl Calcium (8.5-10.1) mg/dl Magnesium (1.7-2.4) mg/dl Total Bilirubin (0.2-1.0) mg/dl AST (13-39) U/L ALT (7-52) U/L Alkaline Phosphatase (34-104) U/L Total Creatine Kinase (30-223) U/L Troponin I (0-0.04) ng/ml Total Protein (6.0-8.3) gm/dl Albumin (3.4-5.0) gm/dl Globulin (2.5-4.0) gm/dl Albumin/Globulin Ratio (0.9-2) TSH (0.300-4.500) uIu/ml Free T4 (0.61-1.60) ng/dl Prolactin ng/ml Urine Color Urine Appearance (Clear) Urine pH (4.5-7.5) Ur Specific Grahn (1.000-1.030) Urine Protein (Negative) Urine Glucose (UA) (Negative) Urine Ketones (Negative) Urine Blood (Negative) Urine Nitrite (Negative) Urine Bilirubin (Negative) Urine Urobilinogen (Negative) Ur Leukocyte Esterase (Negative) Urine WBC (Auto) (0-5) /hpf Urine RBC (Auto) (0-4) /hpf U Hyaline Cast (Auto) (0-5) /lpf U Epithel Cells (Auto) (0-5) /lpf Urine Bacteria (Auto) (Negative) Valproic Acid (50-100) mcg/ml SARS-CoV-2, RNA, NAAT NEGATIVE (NEGATIVE) Administered Medications Discontinued Medications Sodium Chloride (Nss 1000ml) 1,000 mls @ 999 mls/hr IV .Q1H1M OBDULIO Stop: 02/27/22 21:00 Last Infusion: 02/27/22 21:00 Dose: 0 mls/hr Documented by: [id number] Admin: 02/27/22 19:59 Dose: 999 mls/hr Documented by: [id number] Sodium Chloride (Nss) 500 mls @ 999 mls/hr IV .Q31M ONE Stop: 02/27/22 21:14 Last Infusion: 02/27/22 21:21 Dose: 0 mls/hr Documented by: [id number] Admin: 02/27/22 20:50 Dose: 999 mls/hr Documented by: [id number] Lorazepam (Lorazepam 2 Mg/1 Ml Vial) 1 mg IV NOW STA Stop: 02/27/22 20:40 Last Admin: 02/27/22 20:47 Dose: 1 mg Documented by: [id number] Imaging Data Radiologist's Impression: Abdomen/Pelvis CT 02/27/22 19:50 CT abd pelvis wo con CLINICAL HISTORY: abd pain TECHNIQUE: Helical axial images of the abdomen and pelvis were obtained. Automated dose lowering techniques and/or adjustment according to patient size were utilized for this exam. This exam was performed without intravenous contrast. COMPARISON: Comparison is made to CT abdomen pelvis 04/20/2021 FINDINGS: Lower chest: Body wall thickening is seen. Liver: Unremarkable. No focal lesions are seen. Gallbladder and biliary tree: No calcified gallstones. Normal caliber wall. No intra- or extrahepatic biliary ductal dilation. Pancreas: Unremarkable, no focal lesions. Spleen: Unremarkable. Adrenals: Unremarkable. Kidneys and ureters: Nonobstructive nephrolithiasis is seen. Bladder: Limited evaluation due to underdistention. Reproductive organs: Prostatic calcifications are seen which may represent prior hemorrhage or granulomatous disease. Bowel: Unremarkable appearance of the bowel. The appendix is normal. Lymph nodes Retroperitoneal: Unremarkable. Mesenteric: Unremarkable. Pelvic: Unremarkable. Peritoneum: Normal. Vessels: Unremarkable. Abdominal wall: Unremarkable. Bones: Unremarkable. IMPRESSION: No acute abnormalities. In particular, no evidence of appendicitis, cholecystitis, or pancreatitis. ACT 112: Negative or not required by law. Electronically signed by: David Ramirez M.D. 02/27/2022 9:02 PM Chest X-Ray 02/27/22 19:50 XR chest 1V portable CLINICAL HISTORY: syncope TECHNIQUE: Single frontal radiograph of the chest was obtained. Comparison: Comparison is made to chest one view 01/26/2022 FINDINGS: No lines and tubes are seen. Cardiomegaly is noted. The lungs are clear. No evidence of pleural effusion or pneumothorax. IMPRESSION: No acute chest disease. ACT 112: Negative or not required by law. Electronically signed by: David Ramirez M.D. 02/27/2022 9:[address] 02/27/22 19:50 CT head/brain wo con CLINICAL HISTORY: syncope/fall Technique: Contiguous axial CT images of the head were acquired from the base of the skull to the vertex without intravenous contrast administration. Images were viewed in brain, subdural and bone windows. Automated dose lowering techniques and/or adjustment according to patient size were utilized for this exam. Comparison: Comparison is made to CT head 02/22/2022 Findings: The ventricles, basal cisterns, and cerebral sulci are normal. There is no acute intracranial hemorrhage or evidence of acute territorial infarction. Neither mass effect, shift of the midline structures, nor abnormal extra-axial fluid collections are shown. Imaged portions of the paranasal sinuses and mastoid air cells are clear. The orbits appear normal. There are no acute fractures of the calvaria or scalp swelling. Garrett foramen magnum is seen. Impression: No acute intracranial hemorrhage, no evidence of acute territorial infarction or other acute intracranial disease process. ACT 112: Negative or not required by law. Electronically signed by: David Ramirez M.D. 02/27/2022 8:24 PM Discharge Plan Visit Data Chief Complaint: Seizure ED Provider: Travis Tillman Discharge Problem: Acute kidney injury, Seizure-like activity, Abdominal pain, Syncope and collapse Patient Disposition: Being Evaluated by Hospitalist Discharge Instructions Interventions: ED Discharge Assessment Last Done: 04/09/22 23:16 Forms Stand Alone Forms: My [facility] Prescriptions Prescriptions: No Action Norditropin FlexPro 5 mg/1.5 mL (3.3 mg/mL) pen injector 0.3 mg SQ PM Qty: 3 RF: 11 (DME) blood pressure monitor Kit See Rx Instructions .Route Qty: 1 RF: 0 (DME) blood sugar diagnostic Strip See Rx Instructions .Route Qty: 50 RF: 3 (DME) lancets [OneTouch Delica Lancets] 33 gauge misc See Rx Instructions .Route Qty: 100 RF: 3 fluticasone propionate [Flonase Allergy Relief] 50 mcg/actuation spray,suspension 1 spray intranasal HS PRN (Reason: allergy symptoms) Qty: 16 RF: 0 dutasteride [Avodart] 0.5 mg capsule 0.5 mg PO QAM Qty: 90 RF: 2 alfuzosin 10 mg tablet extended release 24 hr 10 mg PO QAM Qty: 90 RF: 2 desmopressin 0.2 mg tablet 0.2 mg PO BID Qty: 180 RF: 3 testosterone 20.25 mg/1.25 gram (1.62 %) gel in metered-dose pump 2 pump TOP PM Qty: 75 RF: 5 cholecalciferol (vitamin D3) 50 mcg (2,000 unit) capsule 50 mcg PO DAILY Qty: 30 RF: 7 metformin 1,000 mg tablet 1,000 mg PO BID Qty: 60 RF: 1 Botox 200 unit recon soln See Rx Instructions IM .COMPLEX Qty: 1 RF: 3 propranolol 120 mg capsule,extended release 24 hr 120 mg PO DAILY Qty: 30 RF: 8 ondansetron HCl 4 mg tablet 4 mg PO Q8H PRN (Reason: nausea and vomiting) Qty: 20 RF: 1 cyclobenzaprine 10 mg tablet 10 mg PO BID PRN (Reason: muscle spasm) 30 Days Qty: 60 RF: 1 meclizine 25 mg tablet 25 mg PO BID Qty: 180 RF: 1 pantoprazole 40 mg tablet,delayed release (DR/EC) 40 mg PO QAM Qty: 90 RF: 3 levothyroxine 200 mcg tablet 200 mcg PO DAILY Qty: 90 RF: 3 cetirizine [Zyrtec] 10 mg tablet 10 mg PO BID Qty: 60 RF: 3 lorazepam 0.5 mg tablet 1 mg PO HS RF: 0 multivitamin Tablet 1 tab PO QAM RF: 0 Nurtec ODT 75 mg tablet,disintegrating 75 mg PO DAILY PRN (Reason: Migraine Headache) RF: 0 insulin aspart U-100 [Novolog U-100 Insulin aspart] 100 unit/mL Solution 1 sliding scale dose SUBCUT TID PRN (Reason: Hyperglycemia) RF: 0 lacosamide [Vimpat] 50 mg tablet 50 mg PO BID 7 Days Qty: 30 RF: 0 hydrocortisone 10 mg tablet 20 mg PO QAM RF: 0 hydrocortisone 10 mg tablet 10 mg PO QPM RF: 0 celecoxib 200 mg capsule 200 mg PO QAM PRN (Reason: Pain) RF: 0 albuterol sulfate 90 mcg/actuation HFA aerosol inhaler 1 inh inhalation QID PRN (Reason: Shortness Of Breath Or Wheezing) RF: 0 gabapentin 400 mg capsule 400 mg PO TID RF: 0 duloxetine 30 mg capsule,delayed release(DR/EC) 30 mg PO QAM RF: 0 divalproex [Depakote] 500 mg tablet,delayed release (DR/EC) 1,000 mg PO QAM RF: 0 divalproex 500 mg tablet,delayed release (DR/EC) 1,500 mg PO .[email or web address] RF: 0 Referrals Referrals: Larry Amaral MD [Primary Care Provider] - Discharge Problem: Abdominal pain Qualifiers: Abdominal location: generalized Qualified Code(s): R10.84 - Generalized abdominal pain
[2022-02-27 20:02] LABS: Basophils # (auto) 0.04 K/uL (0-0.2); Basophils % (auto) 0.4 %; Eosinophils # (auto) 0.13 K/uL (0-0.5); Eosinophils % (auto) 1.2 %; Hematocrit (blood only) 46.3 % (42-52); Hemoglobin 16.3 g/dL (14.0-18.0); Immature Granulocytes # (auto) 0.11 K/uL (0.00-0.02); Lymphocytes # (auto) 3.04 K/uL (1.2-3.4); Lymphocytes % (auto) 28.8 %; Mean Corpuscular Hemoglobin 32.6 pg (25-34); Mean Corpuscular Hgb Conc 35.2 g/dL (32-36); Mean Corpuscular Volume 92.6 fL (80-100); Mean Platelet Volume 9.7 fL (7.4-10.4); Monocytes # (auto) 1.04 K/uL (0.11-0.59); Monocytes % (auto) 9.9 %; Neutrophils # (auto) 6.19 K/uL (1.4-6.5); Neutrophils % (auto) 58.7 %; Platelet Count 173 K/uL (130-400); RDW Coefficient of Variation 13.6 % (11.5-14.5); RDW Standard Deviation 45.6 fL (36.4-46.3); White Blood Count 10.55 K/uL (4.8-10.8)
[2022-02-27 20:24] LABS: Alanine Aminotransferase 40 U/L (7-52); Albumin Globulin Ratio 1.8 (0.9-2); Albumin Level 4.4 gm/dl (3.4-5.0); Alkaline Phosphatase 55 U/L (34-104); Anion Gap 11 (3-11); Aspartate Aminotransferase 37 U/L (13-39); BUN Creatinine Ratio 13.1 (10-20); Bilirubin,Total 0.7 mg/dl (0.2-1.0); Blood Urea Nitrogen 32 mg/dl (6-23); Calcium 9.8 mg/dl (8.5-10.1); Carbon Dioxide 28 mmol/L (21-32); Chloride 101 mmol/L (98-107); Creatine Kinase 33 U/L (30-223); Creatinine Clr Calc Pharmacy 44.1 ml/min; Est GFR (African American) 33.6 ml/min; Globulin 2.4 gm/dl (2.5-4.0); Glucose 82 mg/dl (70-99(Fasting)); Magnesium 1.7 mg/dl (1.7-2.4); Potassium 4.2 mmol/L (3.5-5.1); Sodium 140 mmol/L (136-145); Total Protein 6.8 gm/dl (6.0-8.3); Troponin I < 0.03 ng/ml (0-0.04)
--- NOTE | 2022-02-27 20:25 | CT Scan Report ---
CT head/brain wo con CLINICAL HISTORY: syncope/fall Technique: Contiguous axial CT images of the head were acquired from the base of the skull to the celina kiara without intravenous contrast administration. Images were viewed in brain, subdural [facility]. Automated dose lowering techniques and/or adjustment according to patient size were utilized for this exam. Comparison: Comparison is made to CT head 02/22/2022 Findings: The ventricles, basal cisterns, and cerebral sulci are normal. There is no acute intracranial hemorrh age or evidence of acute territorial infarction. Neither mass effect, shift of the midline structures , nor abnormal extra-axial fluid collections are shown. Imaged portions of the paranasal sinuses and mastoid air cells are clear. The orbits appear normal. There are no acute fractures of the calvaria or scalp swelling. Garrett foramen magnum is seen. Impression: No acute intracranial hemorrhage, no evidence of acute territorial infarction or other acute intracra nial disease process. ACT 112: Negative or not required by law. Electronically signed by: David Ramirez M.D. 02/27/2022 8:24 PM
[2022-02-27 20:31] LABS: Appearance Urine Clear (Clear); Bacteria Urine Automated Negative (Negative); Bilirubin Urine Negative (Negative); Blood Urine Negative (Negative); Color Urine Dark Yellow; Epithelial Cell Urine Auto 20-30 /lpf (0-5); Glucose Urine UA Negative (Negative); Ketones Urine Trace (Negative); Leukocyte Esterase Urine 1+ (Negative); Nitrite Urine Negative (Negative); Protein Urine Negative (Negative); RBC Urine Automated 0-4 /hpf (0-4); Specific Gravity Urine 1.017 (1.000-1.030); Urobilinogen Urine Negative (Negative)
[2022-02-27] MEDS ORDERED: LORazepam 2 MG/1 ML VIAL IV STA (20:39)
[2022-02-27 20:42] LABS: Thyroid Stimulating Hormone 0.207 uIu/ml (0.300-4.500)
[2022-02-27] MEDS ORDERED: SODIUM CHLORIDE 0.9% 500 ML IV ONE (20:44)
--- NOTE | 2022-02-27 21:04 | CT Scan Report ---
CT abd pelvis wo con CLINICAL HISTORY: abd pain TECHNIQUE: Helical axial images of the abdomen and pelvis were obtained. Automated dose lowering tech niques and/or adjustment according to patient size were utilized for this exam. This exam was perfor med without intravenous contrast. COMPARISON: Comparison is made to CT abdomen pelvis 04/20/2021 FINDINGS: Lower chest: Body wall thickening is seen. Liver: Unremarkable. No focal lesions are seen. Gallbladder and biliary tree: No calcified gallstones. Normal caliber wall. No intra- or extrahepatic biliary ductal dilation. Pancreas: Unremarkable, no focal lesions. Spleen: Unremarkable. Adrenals: Unremarkable. Kidneys and ureters: Nonobstructive nephrolithiasis is seen. Bladder: Limited evaluation due to underdistention. Reproductive organs: Prostatic calcifications are seen which may represent prior hemorrhage or granul omatous disease. Bowel: Unremarkable appearance of the bowel. The appendix is normal. Lymph nodes Retroperitoneal: Unremarkable. Mesenteric: Unremarkable. Pelvic: Unremarkable. Peritoneum: Normal. Vessels: Unremarkable. Abdominal wall: Unremarkable. Bones: Unremarkable. IMPRESSION: No acute abnormalities. In particular, no evidence of appendicitis, cholecystitis, or pancreatitis. ACT 112: Negative or not required by law. Electronically signed by: David Ramirez M.D. 02/27/2022 9:02 PM
--- NOTE | 2022-02-27 21:04 | XRay Report ---
XR chest 1V portable CLINICAL HISTORY: syncope TECHNIQUE: Single frontal radiograph of the chest was obtained. Comparison: Comparison is made to chest one view 01/26/2022 FINDINGS: No lines and tubes are seen. Cardiomegaly is noted. The lungs are clear. No evidence of pleural effus ion or pneumothorax. IMPRESSION: No acute chest disease. ACT 112: Negative or not required by law. Electronically signed by: David Ramirez M.D. 02/27/2022 9:03 PM
[2022-02-27 21:13] LABS: T4 Free Thyroxine 1.1 ng/dl (0.61-1.60)
--- NOTE | 2022-02-27 22:31 | History & Physical Report ---
Date of Service February 27, 2022 Assessment & Plan (1) Elevated serum creatinine: Plan: BUN=32, Cr=2.45. Patient reports decreased oral intake. -LR at 125mL/hr x 2 liters -Hold nephrotoxic agents -Repeat chemistry in AM (2) Seizure-like activity: Plan: Patient with history of epileptic and non-epileptic seizures. He is compliant with his medications. Most recent episodes while on continuous monitoring at outside facility without EEG epileptiform seizure. 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 twice daily pending level -Seizure precautions (3) Secondary adrenal insufficiency: Plan: Blood pressure, electrolytes stable -Continue Hydrocortisone 20mg p qAM and 10mg po qPM (4) Anxiety: Plan: Chronic -Continue Duloxetine -Ativan (5) Pituitary hypothyroidism: Plan: -Continue Synthroid (6) Pituitary hypogonadism: Plan: -Continue topical testosterone (7) Pituitary diabetes insipidus: Plan: -Continue Desmopressin 0.2mg po BID (8) Abdominal pain: Plan: Check Lipase. Vimpat has been associated with pancreatitis -Awaiting level History of Present Illness Chief Complaint: Seizure-like activity, abdominal pain, elevated creatinine Primary Care Provider: Larry Amaral MD Anders Leiva is a 51yo male with history of epileptic and non-epileptiform seizures, history of pituitary apoplexy with panhypopituitarism being followed by Endocrine. Patient was recently admitted to [facility] 02/22 - 02/25 after presenting with increased seizure activity as well as QUENTIN. His Depakote was changed to 1000mg BID and Vimpat 50mg BID was added. 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 Patient had a 2D echo for workup of "black out" episodes which was essentially normal. Patient returns today with ongoing seizure-like activity. He reports at least 5 episodes at home, EMS witnessed 2 events on transport. He has not been eating or drinking. Elevated BUN and Cr. Patient somnolent after receiving Ativan in the ER. Able to answer questions then falls back to sleep - participates minimally with exam. He additionally complains of mid-abdominal pain since this AM. No nausea/vomiting/diarrhea or constipation. He has a mild frontal WRIGHT as well. Allergies Allergy/AdvReac Type Severity Reaction Status Date / Time Iodinated Contrast Media Allergy Intermediate face/eye Verified 02/27/22 22:35 swelling Quinolones Allergy Intermediate HIVES Verified 02/27/22 22:35 Home Medications Medication Instructions Recorded Confirmed Type multivitamin 1 tab PO QAM 07/12/19 02/27/22 History cyclobenzaprine 10 mg tablet 10 mg PO BID PRN 30 Days #60 tab 09/18/20 02/27/22 Rx celecoxib 200 mg capsule 200 mg PO QAM PRN 02/23/21 02/27/22 History somatropin 5 mg/1.5 mL (3.3 mg/mL) 0.3 mg SQ PM #3 ml 06/22/21 02/27/22 Rx subcutaneous pen injector (Norditropin FlexPro) albuterol sulfate 90 mcg/actuation 1 inh INHALATION QID PRN 07/28/21 02/27/22 History aerosol inhaler cetirizine 10 mg tablet (Zyrtec) 10 mg PO BID #60 tab 08/05/21 02/27/22 Rx blood pressure monitor #1 ea 08/06/21 02/26/22 Rx duloxetine 30 mg capsule,delayed 30 mg PO QAM 08/11/21 02/27/22 History release gabapentin 400 mg capsule 400 mg PO TID 08/11/21 02/27/22 History blood sugar diagnostic #50 ea 08/17/21 02/26/22 Rx lancets 33 gauge (OneTouch Delica #100 ea 08/17/21 02/26/22 Rx Lancets) rimegepant 75 mg disintegrating 75 mg PO DAILY PRN 08/20/21 02/27/22 History tablet (Nurtec ODT) lorazepam 0.5 mg tablet 1 mg PO HS tab 09/04/21 02/27/22 History fluticasone propionate 50 1 spray INTRANASAL HS PRN #16 g 10/23/21 02/27/22 Rx mcg/actuation nasal spray,suspension (Flonase Allergy Relief) alfuzosin 10 mg tablet,extended 10 mg PO QAM #90 tab 11/12/21 02/27/22 Rx release 24 hr dutasteride 0.5 mg capsule 0.5 mg PO QAM #90 cap 11/12/21 02/27/22 Rx (Avodart) desmopressin 0.2 mg tablet 0.2 mg PO BID #180 tab 11/17/21 02/27/22 Rx meclizine 25 mg tablet 25 mg PO BID #180 tab 11/17/21 02/27/22 Rx pantoprazole 40 mg tablet,delayed 40 mg PO QAM #90 tab 11/17/21 02/27/22 Rx release testosterone 20.25 mg/1.25 gram 2 pump TOP PM #75 g 11/25/21 02/27/22 Rx (1.62 %) transdermal gel pump cholecalciferol (vitamin D3) 50 50 mcg PO DAILY #30 cap 12/17/21 02/27/22 Rx mcg (2,000 unit) capsule metformin 1,000 mg tablet 1,000 mg PO BID #60 tab 12/22/21 02/27/22 Rx onabotulinumtoxinA 200 unit See Rx Instructions IM .COMPLEX #1 12/25/21 02/27/22 Rx solution for injection (Botox) ea insulin aspart U-100 100 unit/mL 1 sliding scale dose SUBCUT TID PRN 12/29/21 02/27/22 History subcutaneous solution (Novolog U-100 Insulin aspart) levothyroxine 200 mcg tablet 200 mcg PO DAILY #90 tab 02/03/22 02/27/22 Rx propranolol 120 mg capsule,24 120 mg PO DAILY #30 cap 02/12/22 02/27/22 Rx hr,extended release ondansetron HCl 4 mg tablet 4 mg PO Q8H PRN #20 tab 02/17/22 02/27/22 Rx hydrocortisone 10 mg tablet 10 mg PO QPM 02/22/22 02/27/22 History hydrocortisone 10 mg tablet 20 mg PO QAM 02/22/22 02/27/22 History lacosamide 50 mg tablet (Vimpat) 50 mg PO BID 7 Days #30 tab 02/22/22 02/27/22 Rx divalproex 500 mg tablet,delayed 1,500 mg PO .[email or web address] MEAL 02/27/22 02/27/22 History release divalproex 500 mg tablet,delayed 1,000 mg PO QAM 02/27/22 02/27/22 History release (Depakote) Past Med/Surg History Medical History (Updated 02/28/22 @ 03:33 by Siobhan Michele DO) Arthritis Bladder mass benign BPH with obstruction/lower urinary tract symptoms Depression Diverticular disease DM type 2 (diabetes mellitus, type 2) Encounter for pre-operative examination Growth hormone deficiency Hematuria resolved History of COVID-19 10/2021 - fatigue; resolved. Insomnia Kidney stones HX Lumbar radiculopathy Lumbar spine pain Migraine without aura and without status migrainosus, not intractable Mitral valve regurgitation follows with Dr. Phillips Obstructive sleep apnea of adult cpap Pituitary diabetes insipidus Pituitary hypogonadism Pituitary hypothyroidism Pituitary neoplasm Prostate mass benign Rectal bleeding Secondary adrenal insufficiency Seizure disorder last seizure grand mal > gets petite mal more frequent >gets grand mal 3-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 > follows Dr. Ordonez Sensorineural hearing loss of both ears SOB (shortness of breath) on exertion Thrombocytopenia Tremor Surgical History History of bladder surgery remove mass [place] of [place] [facility] [facility] [place] [facility]--for brain tumors History of cardiac cath 07/2021 - no stents History of colonoscopy History of esophagogastroduodenoscopy (EGD) History of lithotripsy History of prostate surgery remove mass History of tooth extraction History of wisdom tooth extraction S/P epidural steroid injection Status post right foot surgery replaced 5th metatarsal--hardware in place Family History Grandmother (Paternal) Family history of diabetes mellitus Aunt Family history of diabetes mellitus Uncle Family history of diabetes mellitus Father Prostate cancer Heart disease Mother Cardiac disorder Grandmother (Maternal) Myocardial infarction Other Asthma Cancer Hypertension No family history of adverse response to anesthesia No family history of bleeding disorder Stroke Denies family history of Ovarian cancer Breast cancer Colorectal cancer Social History Smoking Status: Never smoker Tobacco Type: Smokeless Tobacco (Dip or Chew) Second Hand Exposure: Yes; Do You Dip or Chew Tobacco: Yes; Tobacco Cessation Education Requested by Patient: No Hx Alcohol Use: No Hx Substance Use: No Preferred Language: Belarusian Communication Ability: Effective Visual Impairment: No Limitations Hearing Ability: Normal Imposer Required: No Beliefs That Will Affect Care: None marital status: Single Current Living Situation: Alone current occupational status: unemployed Other Information That Helps Us Care for You: No Feels Safe at Home: Yes Safety Concerns: Feels Safe At This Time Childhood Exposure to Second-Hand Smoke: Yes (parents smoked) Seatbelt Use: always Assistive Devices: Cane and Walker Review of Systems Review of Systems: All systems reviewed & are unremarkable except as noted in HPI & below Physical Exam Physical Exam: General: patient resting comfortably, NAD, non-toxic in appearance, AA&O x 4 Skin: warm, dry, intact, no rashes or lesions HEENT: NC/AT, PERRL, EOMI, anicteric sclera, conjunctiva without injection, external ear normal to inspection and nontender, nares patent, moist mucus membranes, dentition intact, no oropharyngeal lesions, neck supple, trachea midline, no LAD, no thyromegaly, no JVD Heart: +S1/S2, regular, no m/r/g Lungs: equal air entry bilaterally, no rales/rhonchi/wheezes Abd: +BS, soft, NT/ND, no masses/organomegaly/ascites Ext: warm, 2+ pulses in UE/LE bilaterally, no clubbing/cyanosis or edema Neuro: nonfocal, patient AA&O x 4, speech intact, no facial droop, moving all extremities on command with equal strength 5/5 Results & Data Results & Data ([facility]) Vital Signs (Past 12 Hours) Vital Signs Temp Pulse Pulse Resp BP BP Pulse Ox 02/27/22 22:24 91 02/27/22 22:00 65 14 120/67 98 02/27/22 20:51 67 14 115/64 98 02/27/22 19:57 73 16 110/69 93 02/27/22 19:55 93 02/27/22 19:15 37.4 C 81 17 105/63 95 Laboratory Results Laboratory Results WBC 10.55 K/uL (4.8-10.8) 02/27/22 19:14 RBC 5.00 M/uL (4.7-6.1) 02/27/22 19:14 Hgb 16.3 g/dL (14.0-18.0) 02/27/22 19:14 Hct 46.3 % (42-52) 02/27/22 19:14 MCV 92.6 fL (80-100) 02/27/22 19:14 MCH 32.6 pg (25-34) 02/27/22 19:14 MCHC 35.2 g/dL (32-36) 02/27/22 19:14 RDW Std Deviation 45.6 fL (36.4-46.3) 02/27/22 19:14 RDW Coeff of Yanira 13.6 % (11.5-14.5) 02/27/22 19:14 Plt Count 173 K/uL (130-400) 02/27/22 19:14 MPV 9.7 fL (7.4-10.4) 02/27/22 19:14 Immature Gran % (Auto) 1.0 % 02/27/22 19:14 Neut % (Auto) 58.7 % 02/27/22 19:14 Lymph % (Auto) 28.8 % 02/27/22 19:14 [place] % (Auto) 9.9 % 02/27/22 19:14 Eos % (Auto) 1.2 % 02/27/22 19:14 Baso % (Auto) 0.4 % 02/27/22 19:14 Neut # (Auto) 6.19 K/uL (1.4-6.5) 02/27/22 19:14 Lymph # (Auto) 3.04 K/uL (1.2-3.4) 02/27/22 19:14 [place] # (Auto) 1.04 K/uL (0.11-0.59) H 02/27/22 19:14 Eos # (Auto) 0.13 K/uL (0-0.5) 02/27/22 19:14 Baso # (Auto) 0.04 K/uL (0-0.2) 02/27/22 19:14 Immature Gran # (Auto) 0.11 K/uL (0.00-0.02) H 02/27/22 19:14 Sodium 140 mmol/L (136-145) 02/27/22 19:14 Potassium 4.2 mmol/L (3.5-5.1) 02/27/22 19:14 Chloride 101 mmol/L (98-107) 02/27/22 19:14 Carbon Dioxide 28 mmol/L (21-32) 02/27/22 19:14 Anion Gap 11 (3-11) 02/27/22 19:14 BUN 32 mg/dl (6-23) H 02/27/22 19:14 Creatinine 2.45 mg/dl (0.6-1.4) H 02/27/22 19:14 Est Cr Clr Drug Dosing 44.1 ml/min 02/27/22 19:14 Est GFR ( Amer) 33.6 ml/min 02/27/22 19:14 Est GFR (Non-Af Amer) 29.0 ml/min 02/27/22 19:14 BUN/Creatinine Ratio 13.1 (10-20) 02/27/22 19:14 Glucose 82 mg/dl (70-99(Fasting)) 02/27/22 19:14 POC Glucose 83 mg/dl (70-99) 02/27/22 22:37 Calcium 9.8 mg/dl (8.5-10.1) 02/27/22 19:14 Magnesium 1.7 mg/dl (1.7-2.4) 02/27/22 19:14 Total Bilirubin 0.7 mg/dl (0.2-1.0) 02/27/22 19:14 AST 37 U/L (13-39) 02/27/22 19:14 ALT 40 U/L (7-52) 02/27/22 19:14 Alkaline Phosphatase 55 U/L (34-104) 02/27/22 19:14 Total Creatine Kinase 33 U/L (30-223) 02/27/22 19:14 Troponin I < 0.03 ng/ml (0-0.04) 02/27/22 19:14 Total Protein 6.8 gm/dl (6.0-8.3) 02/27/22 19:14 Albumin 4.4 gm/dl (3.4-5.0) 02/27/22 19:14 Globulin 2.4 gm/dl (2.5-4.0) L 02/27/22 19:14 Albumin/Globulin Ratio 1.8 (0.9-2) 02/27/22 19:14 TSH 0.207 uIu/ml (0.300-4.500) L 02/27/22 19:14 Free T4 1.10 ng/dl (0.61-1.60) 02/27/22 19:14 Prolactin 1.22 ng/ml 02/27/22 19:14 Urine Color Dark Yellow 02/27/22 20:13 Urine Appearance Clear (Clear) 02/27/22 20:13 Urine pH 5.0 (4.5-7.5) 02/27/22 20:13 Ur Specific [place] 1.017 (1.000-1.030) 02/27/22 20:13 Urine Protein Negative (Negative) 02/27/22 20:13 Urine Glucose (UA) Negative (Negative) 02/27/22 20:13 Urine Ketones Trace (Negative) H 02/27/22 20:13 Urine Blood Negative (Negative) 02/27/22 20:13 Urine Nitrite Negative (Negative) 02/27/22 20:13 Urine Bilirubin Negative (Negative) 02/27/22 20:13 Urine Urobilinogen Negative (Negative) 02/27/22 20:13 Ur Leukocyte Esterase 1+ (Negative) H 02/27/22 20:13 Urine WBC (Auto) 5-10 /hpf (0-5) H 02/27/22 20:13 Urine RBC (Auto) 0-4 /hpf (0-4) 02/27/22 20:13 U Hyaline Cast (Auto) 10-30 /lpf (0-5) H 02/27/22 20:13 U Epithel Cells (Auto) 20-30 /lpf (0-5) H 02/27/22 20:13 Urine Bacteria (Auto) Negative (Negative) 02/27/22 20:13 Valproic Acid 100 mcg/ml (50-100) 02/27/22 19:14 SARS-CoV-2, RNA, NAAT NEGATIVE (NEGATIVE) 02/27/22 20:52 Impressions Abdomen/Pelvis CT 02/27/22 19:50 CT abd pelvis wo con CLINICAL HISTORY: abd pain TECHNIQUE: Helical axial images of the abdomen and pelvis were obtained. Automated dose lowering techniques and/or adjustment according to patient size were utilized for this exam. This exam was performed without intravenous contrast. COMPARISON: Comparison is made to CT abdomen pelvis 04/20/2021 FINDINGS: Lower chest: Body wall thickening is seen. Liver: Unremarkable. No focal lesions are seen. Gallbladder and biliary tree: No calcified gallstones. Normal caliber wall. No intra- or extrahepatic biliary ductal dilation. Pancreas: Unremarkable, no focal lesions. Spleen: Unremarkable. Adrenals: Unremarkable. Kidneys and ureters: Nonobstructive nephrolithiasis is seen. Bladder: Limited evaluation due to underdistention. Reproductive organs: Prostatic calcifications are seen which may represent prior hemorrhage or granulomatous disease. Bowel: Unremarkable appearance of the bowel. The appendix is normal. Lymph nodes Retroperitoneal: Unremarkable. Mesenteric: Unremarkable. Pelvic: Unremarkable. Peritoneum: Normal. Vessels: Unremarkable. Abdominal wall: Unremarkable. Bones: Unremarkable. IMPRESSION: No acute abnormalities. In particular, no evidence of appendicitis, cholecystitis, or pancreatitis. ACT 112: Negative or not required by law. Electronically signed by: David Ramirez M.D. 02/27/2022 9:02 PM Chest X-Ray 02/27/22 19:50 XR chest 1V portable CLINICAL HISTORY: syncope TECHNIQUE: Single frontal radiograph of the chest was obtained. Comparison: Comparison is made to chest one view 01/26/2022 FINDINGS: No lines and tubes are seen. Cardiomegaly is noted. The lungs are clear. No evidence of pleural effusion or pneumothorax. IMPRESSION: No acute chest disease. ACT 112: Negative or not required by law. Electronically signed by: David Ramirez M.D. 02/27/2022 9:[address] 02/27/22 19:50 CT head/brain wo con CLINICAL HISTORY: syncope/fall Technique: Contiguous axial CT images of the head were acquired from the base of the skull to the vertex without intravenous contrast administration. Images were viewed in brain, subdural and bone windows. Automated dose lowering techniques and/or adjustment according to patient size were utilized for this exam. Comparison: Comparison is made to CT head 02/22/2022 Findings: The ventricles, basal cisterns, and cerebral sulci are normal. There is no acute intracranial hemorrhage or evidence of acute territorial infarction. Neither mass effect, shift of the midline structures, nor abnormal extra-axial fluid collections are shown. Imaged portions of the paranasal sinuses and mastoid air cells are clear. The orbits appear normal. There are no acute fractures of the calvaria or scalp swelling. Garrett foramen magnum is seen. Impression: No acute intracranial hemorrhage, no evidence of acute territorial infarction or other acute intracranial disease process. ACT 112: Negative or not required by law. Electronically signed by: David Ramirez M.D. 02/27/2022 8:24 PM PG Care Time/CCT Total # of Minutes Spent Total Time Spent with Patient: Total time spent is greater than 50% in coordination of care (as documented) at patient's floor/unit and/or counseling patient: Coding Level of Care Code INT OBSERVATION CARE 70M LVL 3 Diagnoses Secondary adrenal insufficiency E27.49 Seizure-like activity R56.9 Anxiety F41.9 Pituitary hypothyroidism E03.8 Pituitary hypogonadism E23.0 Pituitary diabetes insipidus E23.2 Elevated serum creatinine R79.89 Abdominal pain R10.84 Abdominal location: generalized (1) Abdominal pain Abdominal location: generalized Qualified Code(s): R10.84 - Generalized abdominal pain
[2022-02-28] MEDS ORDERED: CYCLOBENZAPRINE HCL 10 MG TAB PO PRN
[2022-02-28] MEDS ORDERED: ACETAMINOPHEN 325 MG TAB PO PRN
[2022-02-28] MEDS ORDERED: LORazepam 1 MG TAB PO PRN
[2022-02-28] MEDS ORDERED: GLUCOSE 10 TABS/TUBE PO PRN
[2022-02-28] MEDS ORDERED: ONDANSETRON INJ 2 MG/ML 2 ML VIAL IV PRN
[2022-02-28] MEDS ORDERED: GLUCAGON FOR INJ 1 MG VIAL SQ PRN
[2022-02-28] MEDS ORDERED: CARBOHYDRATES FOR HYPOGLYCEMIA PO PRN
[2022-02-28] MEDS ORDERED: ALBUTEROL HFA 8 GM INHALER INH PRN
[2022-02-28] MEDS ORDERED: DEXTROSE 50% 50 ML SYRINGE IV PRN
[2022-02-28] MEDS ORDERED: GLUCOSE 40% GEL 15 GM TUBE PO PRN
[2022-02-28] MEDS: LACTATED RINGER'S 1,000 ML IV SCH ×4 (00:05→23:06)
[2022-02-28] MEDS: LEVOTHYROXINE SODIUM 200 MCG TABLET PO SCH (05:31)
[2022-02-28 06:19] LABS: Basophils # (auto) 0.03 K/uL (0-0.2); Basophils % (auto) 0.3 %; Eosinophils # (auto) 0.24 K/uL (0-0.5); Hematocrit (blood only) 41.8 % (42-52); Hemoglobin 14.3 g/dL (14.0-18.0); Immature Granulocytes # (auto) 0.08 K/uL (0.00-0.02); Immature Granulocytes % (auto) 0.7 %; Lymphocytes % (auto) 35.8 %; Mean Corpuscular Hemoglobin 31.7 pg (25-34); Mean Corpuscular Hgb Conc 34.2 g/dL (32-36); Mean Corpuscular Volume 92.7 fL (80-100); Mean Platelet Volume 9.1 fL (7.4-10.4); Monocytes # (auto) 1.07 K/uL (0.11-0.59); Monocytes % (auto) 9.1 %; Neutrophils # (auto) 6.11 K/uL (1.4-6.5); Neutrophils % (auto) 52.1 %; Platelet Count 120 K/uL (130-400); RDW Coefficient of Variation 13.2 % (11.5-14.5); RDW Standard Deviation 44.8 fL (36.4-46.3); Red Blood Count 4.51 M/uL (4.7-6.1); White Blood Count 11.73 K/uL (4.8-10.8)
[2022-02-28 06:36] LABS: BUN Creatinine Ratio 16.4 (10-20); Calcium 8.6 mg/dl (8.5-10.1); Creatinine Clr Calc Pharmacy 65.5 ml/min; Est GFR (African American) 54.1 ml/min; Est GFR (Non-African American) 46.7 ml/min; Potassium 3.9 mmol/L (3.5-5.1)
[2022-02-28] MEDS: TESTOSTERONE~ORDER AWAITING ACTION SCH ×3 (08:15→23:07)
[2022-02-28] MEDS: AVODART~ORDER AWAITING ACTION SCH ×3 (08:15→23:06)
[2022-02-28] MEDS: GABAPENTIN 400 MG CAP PO SCH ×3 (09:26→20:31)
[2022-02-28] MEDS: DULoxetine HCL 30 MG CAP PO SCH (09:26)
[2022-02-28] MEDS: ALFUZOSIN HCL 10 MG TAB PO SCH (09:26)
[2022-02-28] MEDS: DIVALPROEX DELAY RELEASE 500 MG TAB PO SCH ×2 (09:26→20:31)
[2022-02-28] MEDS: CETIRIZINE HCL 10 MG TABLET PO SCH ×2 (09:26→20:31)
[2022-02-28] MEDS: DESMOPRESSIN ACETATE 0.1 MG TAB PO SCH ×2 (09:26→20:30)
[2022-02-28] MEDS: MECLIZINE HCL 25 MG TAB PO SCH ×2 (09:27→20:31)
[2022-02-28] MEDS: HYDROCORTISONE 10 MG TAB PO SCH (09:27)
[2022-02-28] MEDS: PANTOprazole 40 MG TAB PO SCH (09:27)
[2022-02-28] MEDS: PROPRANOLOL HCL 60 MG LA CAP PO SCH (09:27)
[2022-02-28] MEDS: INSULIN ASPART PER UNIT SC SCH ×4 (09:47→21:12)
[2022-02-28 10:14] LABS: Base Excess VBG 4.5 mEq/L; Oxygen Saturation VBG 74.5 %; pH VBG 7.44 (7.36-7.41)
[2022-02-28] MEDS: LACOSAMIDE 50 MG TABLET PO SCH ×2 (10:24→21:09)
[2022-02-28 10:39] LABS: Magnesium 1.7 mg/dl (1.7-2.4)
--- NOTE | 2022-02-28 10:56 | Electrocardiogram Report ---
Test Reason : Blood Pressure : / mmHG Vent. Rate : 077 BPM Atrial Rate : 077 BPM P-R Int : 140 ms QRS Dur : 082 ms QT Int : 366 ms P-R-T Axes : 039 -08 010 degrees QTc Int : 414 ms Normal sinus rhythm Normal ECG When compared with ECG of 22-FEB-2022 15:04, No significant change was found Confirmed by Bo Edwards ([id number]) on 02/28/2022 10:55:50 AM Referred By: REFERRED SELF Confirmed By:Bo Edwards
--- NOTE | 2022-02-28 16:03 | Hospitalist Progress Note ---
Date of Service February 28, 2022 Assessment & Plan (1) Elevated serum creatinine: Plan: Creat improved to 1.65. Patient reports decreased oral intake. Likely due to taking his lasix which was discontinued in the previous hospitalization -continue IVF -Hold nephrotoxic agents -will continue IVF in AM (2) Seizure-like activity: Plan: Patient with history of epileptic and non-epileptic seizures. He is compliant with his medications. Most recent episodes while on continuous monitoring at outside facility without EEG epileptiform seizure. 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 twice daily pending level -Seizure precautions -CK is negative. -This appears to be pseudoseizure. (3) Secondary adrenal insufficiency: Plan: Blood pressure, electrolytes stable -Continue Hydrocortisone 20mg p qAM and 10mg po qPM (4) Anxiety: Plan: Chronic -Continue Duloxetine -Ativan (5) Pituitary hypothyroidism: Plan: -Continue Synthroid (6) Pituitary hypogonadism: Plan: -Continue topical testosterone (7) Pituitary diabetes insipidus: Plan: -Continue Desmopressin 0.2mg po BID (8) Abdominal pain: Plan: Check Lipase. Vimpat has been associated with pancreatitis -Awaiting level Admission and Anticipated Discharge Date Admission Date: February 27, 2022 Subjective 51 yo male had a code purple as he was having generalized tonic clonic movements. As I walked in the room, patient was unresponsive to nursing. But responded to my questions and was tracking with his eyes whereever I was in the room. Patint did not appear to be postictal. Patient reports he is still taking his lasix at home. Review of Systems Review of Systems: All systems reviewed & are unremarkable except as noted in HPI & below Physical Exam Physical Exam: General: patient resting comfortably, NAD, non-toxic in appearance, AA&O x 4 Skin: warm, dry, intact, no rashes or lesions HEENT: NC/AT, PERRL, EOMI, anicteric sclera, conjunctiva without injection, external ear normal to inspection and nontender, nares patent, moist mucus membranes, dentition intact, no oropharyngeal lesions, neck supple, trachea midline, no LAD, no thyromegaly, no JVD Heart: +S1/S2, regular, no m/r/g Lungs: equal air entry bilaterally, no rales/rhonchi/wheezes Abd: +BS, soft, NT/ND, no masses/organomegaly/ascites Ext: warm, 2+ pulses in UE/LE bilaterally, no clubbing/cyanosis or edema Neuro: nonfocal, patient AA&O x 4, speech intact, no facial droop, moving all extremities on command with equal strength 5/5 Results & Data Results & Data ([facility]) Vital Signs (Past 12 Hours) Vital Signs Temp Pulse Pulse Resp BP Pulse Ox 02/28/22 15:43 36.9 C 63 18 106/60 97 02/28/22 10:35 97 02/28/22 09:36 67 16 144/78 H 98 02/28/22 09:23 72 150/67 H 02/28/22 09:20 169/72 H 02/28/22 09:15 78 136/66 100 02/28/22 09:10 37 C 77 18 164/64 H 99 02/28/22 07:29 36.6 C 50 L 16 146/79 H 100 02/28/22 04:04 68 148/67 H 99 PG Care Time/CCT Total # of Minutes Spent Total Time Spent with Patient: Total time spent is greater than 50% in coordination of care (as documented) at patient's floor/unit and/or counseling patient: Coding Level of Care Code 26402 Subseq Obs Care Lvl 3 Diagnoses Elevated serum creatinine R79.89 Seizure-like activity R56.9 Secondary adrenal insufficiency E27.49 Anxiety F41.9 Pituitary hypothyroidism E03.8 Pituitary hypogonadism E23.0 Pituitary diabetes insipidus E23.2 Abdominal pain R10.84 Abdominal location: generalized (1) Abdominal pain Abdominal location: generalized Qualified Code(s): R10.84 - Generalized abdominal pain
[2022-02-28] MEDS ORDERED: HYDROCORTISONE 10 MG TAB PO SCH (21:00)
[2022-03-01] MEDS: LEVOTHYROXINE SODIUM 200 MCG TABLET PO SCH (05:49)
[2022-03-01 07:18] LABS: Hematocrit (blood only) 37.7 % (42-52); Hemoglobin 13.8 g/dL (14.0-18.0); Mean Corpuscular Hemoglobin 32.8 pg (25-34); Mean Corpuscular Hgb Conc 36.6 g/dL (32-36); Mean Corpuscular Volume 89.5 fL (80-100); Mean Platelet Volume 8.5 fL (7.4-10.4); Platelet Count 134 K/uL (130-400); RDW Coefficient of Variation 13.2 % (11.5-14.5); RDW Standard Deviation 42.6 fL (36.4-46.3); Red Blood Count 4.21 M/uL (4.7-6.1); White Blood Count 9.54 K/uL (4.8-10.8)
[2022-03-01 07:49] LABS: BUN Creatinine Ratio 17.2 (10-20); Calcium 8.7 mg/dl (8.5-10.1); Creatinine Clr Calc Pharmacy 88.6 ml/min; Est GFR (Non-African American) 67.3 ml/min
[2022-03-01] MEDS: ALFUZOSIN HCL 10 MG TAB PO SCH (09:05)
[2022-03-01] MEDS: DIVALPROEX DELAY RELEASE 500 MG TAB PO SCH (09:06)
[2022-03-01] MEDS: PANTOprazole 40 MG TAB PO SCH (09:06)
[2022-03-01] MEDS: MECLIZINE HCL 25 MG TAB PO SCH (09:06)
[2022-03-01] MEDS: DULoxetine HCL 30 MG CAP PO SCH (09:06)
[2022-03-01] MEDS: GABAPENTIN 400 MG CAP PO SCH ×2 (09:07→14:00)
[2022-03-01] MEDS: HYDROCORTISONE 10 MG TAB PO SCH (09:07)
[2022-03-01] MEDS: CETIRIZINE HCL 10 MG TABLET PO SCH (09:08)
[2022-03-01] MEDS: DESMOPRESSIN ACETATE 0.1 MG TAB PO SCH (09:08)
[2022-03-01] MEDS: AVODART~ORDER AWAITING ACTION SCH (09:12)
[2022-03-01] MEDS: TESTOSTERONE~ORDER AWAITING ACTION SCH (09:12)
[2022-03-01] MEDS: PROPRANOLOL HCL 60 MG LA CAP PO SCH (09:15)
[2022-03-01] MEDS: INSULIN ASPART PER UNIT SC SCH ×2 (09:21→12:29)
--- NOTE | 2022-03-01 09:27 | Neurology Consultation ---
Date of Consultation March 01, 2022 Assessment & Plan (1) Seizure-like activity: (2) Syncope and collapse: (3) Panhypopituitarism: (4) Depression: (5) Anxiety: (6) Migraine without aura, not intractable, without status migrainosus: (7) Lumbar radiculopathy: (8) Idiopathic polyneuropathy: (9) Essential tremor: This patient is complicated from a neurologic standpoint. He has a history of large pituitary tumor requiring surgery in 2001 then again in 2016 with panhypopituitarism on multiple hormone replacements followed by Endocrinology. Overall this is fairly stable. 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 This was proven early in 2020 and [facility]. He remains having generalized events despite Depakote, gabapentin, and now lacosamide. In addition this patient has "syncopal" events where he collapses and hits his body or head. We have not proven any cardiovascular abnormality despite echocardiogram, event monitor and evaluation. It would be very rare for an adult to have an atonic seizure to explain these events. Therefore I do not believe these are neurologic. Admittedly, the treatment of pseudoseizures is very difficult and requires a combination of Psychiatry and Neurology. He has admitted significant anxiety/depression, and has been labeled with bipolar disorder, followed by psychiatry. Apparently he is only on Cymbalta 30 mg a day. I discussed his case with Dr. Ceron, psychiatry. He has a history of severe migraine headaches in the past which are not a current problem during this hospitalization. He has a history of idiopathic polyneuropathy and a mild right lumbosacral radiculopathy. These are stable. He has a central tremor likely secondary to the usage of Depakote. This is better since his dose has been lowered. Recommendations: 1. continue Depakote ER 1000 mg twice daily. 2. Check a trough level later this week 3. increase lacosamide to 50 mg in the morning and 100 mg at night. There is no need to check levels of this medication at this time. 4. Continue gabapentin 400 mg 3 times a day. 5. Consider increasing Cymbalta to 60 mg a day. There is no need for a formal psychiatric consult in the hospital. He needs follow-up psychiatric care however. 6. neurology can follow up as an outpatient he can see the PA with me in 1-2 weeks after discharge. Overall, I spent a total of 100 minutes with this case including review of records of MRI films, direct evaluation the patient at bedside, and discussion of the case with the patient and RN at bedside, and doctors Any, including differential diagnosis and treatment options. History of Present Illness Reason for Consultation: Patient is a 51-year-old, who I was asked to see the request Dr. Peraza, neurologic consultation regarding seizures versus pseudoseizures. Requesting Physician: Doctor Peraza Attending Physician: Franklyn Peraza History of Present Illness I have been seeing this patient as an outpatient for over a decade For seizure disorder and migraines post intracranial surgery for a very large pituitary tumor. He had panhypopituitarism postoperatively and has been on multiple hormone replacements, followed closely by Dr. Voss (who has seen him most recently February 03 this year). Apparently he is stable from an endocrine standpoint. he had a repeat surgery in the fall of 2015 to remove tumor regrowth. He has been stable since with no evidence of recurrence. His most recent MRI was in February of this year and showed no tumor recurrence. The patient has a history of bipolar disorder/ depression / anxiety since his original surgery, followed by Psychiatry over time. He has been on a number of different medicines. Patient has a history seizures and migraines since The original surgery. He has tried phenytoin, oxcarbazepine, lamotrigine, levetiracetam, all with side effects. He has been on valproic acid for almost a decade. I have seen him as an outpatient , periodically ever since. For several years he has been on Depakote ER 1000 mg in the morning and 1500 mg at night. He would typically have a breakthrough seizure once every so many months. These tended to consist of generalized shaking incontinence lasting a minute. he was doing fairly well however. He did developed tremor likely secondary to the valproic acid and propranolol helped. Patient was having migraine headaches (Despite Depakote and propranolol), and in 2018 was initiated on Emgality. The patient started having more seizures in early 2020. he went to [facility], was weaned off Depakote and Briviact and they diagnosed pseudoseizures after capturing spells on epilepsy monitoring. When I saw him in April of 2021 he was being followed by Psychiatry (Who labeled him as bipolar ) and Emgality was helping his headaches. He remained on Depakote and propranolol (mostly for headaches ). He was taking Nurtec and Zomig as needed for headaches. In early January of 2022 EMG nerve conduction study showed mild underlying polyneuropathy with right lumbosacral radiculopathy of a mild nature. Patient has been having 2 types of events. One is "blackout events" which occur without warning. He then collapse is headache it hurt himself or hit his head. These last up to a minute and during this time he is loosened floppy and not having seizure activity. He will wake up and get back to normal fairly soon. These could occur 3 times in a day or he may go a week without them. He has had seizure-like episodes occurring very frequently recently also. He will start out without warning and have the sudden onset of clenching and tightening of all 4 limbs and his jaws. The right side may be worse than left side he says. He might have incontinence of urine. He can talk but he might be aware of people around him for here thanks. He would tend to wake up after a couple of minutes and be tired her groggy. He was sent to [facility], and they are going to have a follow-up visit with EEGs. He was admitted February 22 or blackouts and seizure activity. Echocardiogram was unremarkable and no change from July of 2021. Event monitor in January showed no cardiac abnormalities. He was initiated on Vimpat. His Depakote level was 163 any was lowered to 1000 mg twice a day. he was readmitted February 27 and a Depakote level was 100 on 1000 mg twice daily. He is up to Vimpat 50 mg twice a day. He had an event last night that he remembers but did not tell the nurses. He had a witnessed event during the day on February [address] Peraza felt this was consistent with pseudoseizures. Apparently the patient was tracking the position around the room despite having his spell. Laboratory studies are unremarkable today with CBC and Chem profile being normal. CK was 40 for TSH and prolactin were low. Allergies Allergy/AdvReac Type Severity Reaction Status Date / Time Iodinated Contrast Media Allergy Intermediate face/eye Verified 02/27/22 22:35 swelling Quinolones Allergy Intermediate HIVES Verified 02/27/22 22:35 Home Medications Medication Instructions Recorded Confirmed Type multivitamin 1 tab PO QAM 07/12/19 02/27/22 History cyclobenzaprine 10 mg tablet 10 mg PO BID PRN 30 Days #60 tab 09/18/20 02/27/22 Rx celecoxib 200 mg capsule 200 mg PO QAM PRN 02/23/21 02/27/22 History somatropin 5 mg/1.5 mL (3.3 mg/mL) 0.3 mg SQ PM #3 ml 06/22/21 02/27/22 Rx subcutaneous pen injector (Norditropin FlexPro) albuterol sulfate 90 mcg/actuation 1 inh INHALATION QID PRN 07/28/21 02/27/22 History aerosol inhaler cetirizine 10 mg tablet (Zyrtec) 10 mg PO BID #60 tab 08/05/21 02/27/22 Rx blood pressure monitor #1 ea 08/06/21 02/26/22 Rx duloxetine 30 mg capsule,delayed 30 mg PO QAM 08/11/21 02/27/22 History release gabapentin 400 mg capsule 400 mg PO TID 08/11/21 02/27/22 History blood sugar diagnostic #50 ea 08/17/21 02/26/22 Rx lancets 33 gauge (OneTouch Delica #100 ea 08/17/21 02/26/22 Rx Lancets) rimegepant 75 mg disintegrating 75 mg PO DAILY PRN 08/20/21 02/27/22 History tablet (Nurtec ODT) lorazepam 0.5 mg tablet 1 mg PO HS tab 09/04/21 02/27/22 History fluticasone propionate 50 1 spray INTRANASAL HS PRN #16 g 10/23/21 02/27/22 Rx mcg/actuation nasal spray,suspension (Flonase Allergy Relief) alfuzosin 10 mg tablet,extended 10 mg PO QAM #90 tab 11/12/21 02/27/22 Rx release 24 hr dutasteride 0.5 mg capsule 0.5 mg PO QAM #90 cap 11/12/21 02/27/22 Rx (Avodart) desmopressin 0.2 mg tablet 0.2 mg PO BID #180 tab 11/17/21 02/27/22 Rx meclizine 25 mg tablet 25 mg PO BID #180 tab 11/17/21 02/27/22 Rx pantoprazole 40 mg tablet,delayed 40 mg PO QAM #90 tab 11/17/21 02/27/22 Rx release testosterone 20.25 mg/1.25 gram 2 pump TOP PM #75 g 11/25/21 02/27/22 Rx (1.62 %) transdermal gel pump cholecalciferol (vitamin D3) 50 50 mcg PO DAILY #30 cap 12/17/21 02/27/22 Rx mcg (2,000 unit) capsule metformin 1,000 mg tablet 1,000 mg PO BID #60 tab 12/22/21 02/27/22 Rx onabotulinumtoxinA 200 unit See Rx Instructions IM .COMPLEX #1 12/25/21 02/27/22 Rx solution for injection (Botox) ea insulin aspart U-100 100 unit/mL 1 sliding scale dose SUBCUT TID PRN 12/29/21 02/27/22 History subcutaneous solution (Novolog U-100 Insulin aspart) levothyroxine 200 mcg tablet 200 mcg PO DAILY #90 tab 02/03/22 02/27/22 Rx propranolol 120 mg capsule,24 120 mg PO DAILY #30 cap 02/12/22 02/27/22 Rx hr,extended release ondansetron HCl 4 mg tablet 4 mg PO Q8H PRN #20 tab 02/17/22 02/27/22 Rx hydrocortisone 10 mg tablet 10 mg PO QPM 02/22/22 02/27/22 History hydrocortisone 10 mg tablet 20 mg PO QAM 02/22/22 02/27/22 History lacosamide 50 mg tablet (Vimpat) 50 mg PO BID 7 Days #30 tab 02/22/22 02/27/22 Rx divalproex 500 mg tablet,delayed 1,500 mg PO .DAILY@MERYL MEAL 02/27/22 02/27/22 History release divalproex 500 mg tablet,delayed 1,000 mg PO QAM 02/27/22 02/27/22 History release (Depakote) Patient History Medical History Arthritis Bladder mass benign BPH with obstruction/lower urinary tract symptoms Depression Diverticular disease DM type 2 (diabetes mellitus, type 2) Encounter for pre-operative examination Growth hormone deficiency Hematuria resolved History of COVID-19 10/2021 - fatigue; resolved. Insomnia Kidney stones HX Lumbar radiculopathy Lumbar spine pain Migraine without aura and without status migrainosus, not intractable Mitral valve regurgitation follows with Dr. Phillips Obstructive sleep apnea of adult cpap Pituitary diabetes insipidus Pituitary hypogonadism Pituitary hypothyroidism Pituitary neoplasm Prostate mass benign Rectal bleeding Secondary adrenal insufficiency Seizure disorder last seizure grand mal > gets petite mal more frequent >gets grand mal 3-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 > follows Dr. Ordonez Sensorineural hearing loss of both ears SOB (shortness of breath) on exertion Thrombocytopenia Tremor Surgical History History of bladder surgery remove mass History of brain surgery x2---[place] @ [facility] [place] @ [facility]--for brain tumors History of cardiac cath 07/2021 - no stents History of colonoscopy History of esophagogastroduodenoscopy (EGD) History of lithotripsy History of prostate surgery remove mass History of tooth extraction History of wisdom tooth extraction S/P epidural steroid injection Status post right foot surgery replaced 5th metatarsal--hardware in place Family History Grandmother (Paternal) Family history of diabetes mellitus Aunt Family history of diabetes mellitus Uncle Family history of diabetes mellitus Father Prostate cancer Heart disease Mother Cardiac disorder Grandmother (Maternal) Myocardial infarction Other Asthma Cancer Hypertension No family history of adverse response to anesthesia No family history of bleeding disorder Stroke Denies family history of Ovarian cancer Breast cancer Colorectal cancer Social History Smoking Status: Never smoker Tobacco Type: Smokeless Tobacco (Dip or Chew) Second Hand Exposure: Yes; Hx Alcohol Use: No Hx Substance Use: No Preferred Language: Trinidadian Communication Ability: Effective Visual Impairment: No Limitations Hearing Ability: Normal Neonatal Social Worker Required: No Beliefs That Will Affect Care: None marital status: Single Current Living Situation: Alone current occupational status: unemployed Feels Safe at Home: Yes Childhood Exposure to Second-Hand Smoke: Yes (parents smoked) Seatbelt Use: always Assistive Devices: Cane and Walker Review of Systems Constitutional: no fever, no fatigue and no weakness Eyes: no diplopia, no eye pain and no worsening vision Ear, Nose, Mouth, Throat: no ear pain, no tinnitus, no hearing loss, no dizziness, no snoring, no hoarseness and no dysphagia Respiratory: no cough and no dyspnea Cardiovascular: no chest pain, no palpitations and no lightheadedness Gastrointestinal: no abdominal pain, no nausea and no vomiting Musculoskeletal: + back pain; no neck pain, no radicular pain, no joint pain and no myalgia Integumentary: no rash and no lesions Neurologic: + tremor(s), + headache(s) and + memory loss; no gait abnormality, no localized weakness, no generalized weakness, no tingling, no numbness, no abnormal movements, no abnormal speech and no confusion Psychiatric: + depression and + anxiety; no irritability, no difficulty concentrating, no confusion and no hallucinations Endocrine: no fatigue and no flushing Hematologic / Lymphatic: no easy bleeding and no easy bruising Allergy / Immunological: no urticaria and no problem reported Exam (Neuro) Physical Exam: The patient is right-handed. The patient is awake, alert, and attentive. Speech is normal without any aphasia or dysarthria. The patient can name objects, repeat phrases, and has normal spontaneous speech. Mentation and thought processes are intact, with orientation to person, place and time, and normal fund of knowledge. Attention and concentration are normal. Mood and affect are normal and appropriate. General appearance and grooming are normal. Short and long-term memory are intact. Pupils are 4 mm bilaterally and reactive to light. Extraocular eye muscles are intact without nystagmus. Visual acuity and visual kong seem normal grossly to confrontation. There are no deficits to sensation in the face in all 3 distributions of the fifth cranial nerve bilaterally. Corneal reflexes are positive bilaterally. Facial strength and symmetry was normal bilaterally. Hearing seems normal bilaterally. Palate moves well without asymmetry. There is normal carrillo ocleidomastoid and trapezius (shoulder shrug) strength bilaterally. Tongue is midline with good strength bilaterally. Neck has a full range of motion without discomfort. There are no cervical bruits bilaterally. There are no cranial or ocular bruits. Heart is without murmur. There is a regular rhythm and rate. Cervical, thoracic, and lumbar spine are nontender to palpation. Gait is narrow based, with good arm swing, turns, and stance. Balance is normal eyes open or closed. With outstretched arms there is no drift. There are no resting, postural, or action tremors. There is no ataxia with finger to nose testing. There is good facility in the hands. No other abnormal involuntary movements are noted. Motor strength is 5/5 diffusely in the arms bilaterally including deltoids, biceps, triceps, brachioradialis, wrist flexors and extensors, drafter tool design, and intrinsic hand muscles. Motor strength is 5/5 diffusely in the legs bilaterally including hip flexors, quadriceps, hamstrings, gastrocnemius, tibialis anterior, tibialis posterior, and Peroneii muscles. Toe extensors are normal and there is good bulk in the extensor digitorum brevis muscles bilaterally. The limbs have good tone without rigidity or spasticity. There is no atrophy noted in the muscles. Muscle bulk is normal, there is no tenderness to palpation, no myotonia to percussion, and no fasciculations seen. Sensory examination is intact to touch and pin throughout all 4 limbs diffusely. Reflexes are 1/4 in the biceps, triceps, brachioradialis, quadriceps, and Achilles tendons bilaterally. There is no clonus bilaterally. Toes are downgoing with plantar stimulation bilaterally. Peripheral pulses are present and of normal quality distally in all 4 limbs. There is no peripheral edema noted in the limbs. Results & Data ([facility] [place]) Vital Signs (Past 12 Hours) Vital Signs Temp Pulse Resp BP Pulse Ox 03/01/22 07:15 36.8 C 51 L 18 121/50 L 94 02/28/22 23:47 36.8 C 60 18 127/78 98 PG Care Time/CCT Total # of Minutes Spent Total Time Spent with Patient: Total time spent is greater than 50% in coordination of care (as documented) at patient's floor/unit and/or counseling patient: Coding Level of Care Code 79047 Office/Outpt Visit, Est Diagnoses Seizure-like activity R56.9 Lumbar radiculopathy M54.16 Depression F32.9 Migraine without aura, not intractable, without status migrainosus G43.009 Anxiety F41.9 Idiopathic polyneuropathy G60.9 Syncope and collapse R55 Panhypopituitarism E23.0 Essential tremor G25.0 Time Spent (min) 100 Comment Add modifiers as able
[2022-03-01] MEDS: LACOSAMIDE 50 MG TABLET PO SCH (09:44)
--- NOTE | 2022-03-07 23:51 | Discharge Summary ---
Date of Service March 01, 2022 Admission HPI Per Admitting Provider Anders Leiva is a 51yo male with history of epileptic and non-epileptiform seizures, history of pituitary apoplexy with panhypopituitarism being followed by Endocrine. Patient was recently admitted to [facility] 02/22 - 02/25 after presenting with increased seizure activity as well as QUENTIN. His Depakote was changed to 1000mg BID and Vimpat 50mg BID was added. 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 Patient had a 2D echo for workup of "black out" episodes which was essentially normal. Patient returns today with ongoing seizure-like activity. He reports at least 5 episodes at home, EMS witnessed 2 events on transport. He has not been eating or drinking. Elevated BUN and Cr. Patient somnolent after receiving Ativan in the ER. Able to answer questions then falls back to sleep - participates minimally with exam. He additionally complains of mid-abdominal pain since this AM. No nausea/vomiting/diarrhea or constipation. He has a mild frontal WRIGHT as well. Principal Diagnosis QUENTIN Discharge Exam General: patient resting comfortably, NAD, non-toxic in appearance, AA&O x 4 Skin: warm, dry, intact, no rashes or lesions HEENT: NC/AT, PERRL, EOMI, anicteric sclera, conjunctiva without injection, external ear normal to inspection and nontender, nares patent, moist mucus membranes, dentition intact, no oropharyngeal lesions, neck supple, trachea midline, no LAD, no thyromegaly, no JVD Heart: +S1/S2, regular, no m/r/g Lungs: equal air entry bilaterally, no rales/rhonchi/wheezes Abd: +BS, soft, NT/ND, no masses/organomegaly/ascites Ext: warm, 2+ pulses in UE/LE bilaterally, no clubbing/cyanosis or edema Neuro: nonfocal, patient AA&O x 4, speech intact, no facial droop, moving all extremities on command with equal strength 5/5 Discharge Data Allergies Allergy/AdvReac Type Severity Reaction Status Date / Time Iodinated Contrast Media Allergy Intermediate face/eye Verified 03/05/22 15:13 swelling Quinolones Allergy Intermediate HIVES Verified 03/05/22 15:13 Consultations 02/27/22 21:23 ED Decision to Admit Stat 02/28/22 09:18 Consult Neurology Routine Ordered Studies 02/27/22 19:50 CT abd pelvis wo con Stat CT head/brain wo con Stat Hospital Course (1) Elevated serum creatinine: Creat improved to 1.65. Patient reports decreased oral intake. Likely due to taking his lasix which was discontinued in the previous hospitalization -improved with IVF. will discharge. -D/W mother and patient is agreeable. -Hold nephrotoxic agents -will continue IVF in AM (2) Seizure-like activity: Patient with history of epileptic and non-epileptic seizures. He is compliant with his medications. Most recent episodes while on continuous monitoring at outside facility without EEG epileptiform seizure. Episodes have been most consistent with PNES - Depakote to 1000mg po BID - will increase vimpat as discussed in discharge instructions below. Patient has PNES and will need to followup with Neuro and Psych as an outpatient -Seizure precautions -CK is negative. -This appears to be pseudoseizure. (3) Secondary adrenal insufficiency: Blood pressure, electrolytes stable -Continue Hydrocortisone 20mg p qAM and 10mg po qPM (4) Anxiety: Chronic -Continue Duloxetine -Ativan (5) Pituitary hypothyroidism: -Continue Synthroid (6) Pituitary hypogonadism: -Continue topical testosterone (7) Pituitary diabetes insipidus: -Continue Desmopressin 0.2mg po BID (8) Abdominal pain: Check Lipase. Vimpat has been associated with pancreatitis -Awaiting level Total Time Total Time Spent Total Time Spent (In Minutes): 35 Discharge Plan Discharge Items Patient Disposition: Home - Home Health Services Reason For Visit: SEIZURE, ELEVATED CREATININE Discharge Diagnosis: seizure, elevated creatinine Activity: Resume your previous activity Non-emergency contact: Primary Care Provider Call non-emergency contact if: you have any medication questions Follow-up/Referrals: [facility] [Other] - 03/05/22 3:00 pm (appt with Sierra Fuentes via telephone) Larry Amaral MD [Primary Care Provider] - (If unable to keep your follow up appointment with Dr. Amaral on 03/05 please call the office. ) Gennaro Ordonez MD [Physician] - 03/08/22 11:45 am (We made you a follow up appointment with SEPIDEH Martinez from Dr. Ordonez's office at neurology. If you are unable to keep this appointment please call the office at [phone].) Diet: Carb Count or DM1 Addtl Attending Provider Instructions: recommen followup with Psych. Appears that this is with [facility]. Also recommend followup with Neuro in 1-2 weeks. Also a friendly reminder to stop the lasix. We are increasing the vimpat to 50 mg in the morning an 100 mg in the evening. Pending Studies at Discharge: No Stand-Alone Forms: My [facility], Smoking Cessation Medications and DC Order Prescriptions: New acetaminophen 325 mg Tablet 650 mg PO Q6H PRN (Reason: pain) Qty: 30 RF: 0 duloxetine 60 mg capsule,delayed release(DR/EC) 60 mg PO DAILY Qty: 30 RF: 0 Continued Norditropin FlexPro 5 mg/1.5 mL (3.3 mg/mL) pen injector 0.3 mg SQ PM Qty: 3 RF: 11 (DME) blood pressure monitor Kit See Rx Instructions .Route Qty: 1 RF: 0 (DME) blood sugar diagnostic Strip See Rx Instructions .Route Qty: 50 RF: 3 (DME) lancets [OneTouch Delica Lancets] 33 gauge misc See Rx Instructions .Route Qty: 100 RF: 3 fluticasone propionate [Flonase Allergy Relief] 50 mcg/actuation spray,suspension 1 spray intranasal HS PRN (Reason: allergy symptoms) Qty: 16 RF: 0 dutasteride [Avodart] 0.5 mg capsule 0.5 mg PO QAM Qty: 90 RF: 2 alfuzosin 10 mg tablet extended release 24 hr 10 mg PO QAM Qty: 90 RF: 2 desmopressin 0.2 mg tablet 0.2 mg PO BID Qty: 180 RF: 3 testosterone 20.25 mg/1.25 gram (1.62 %) gel in metered-dose pump 2 pump TOP PM Qty: 75 RF: 5 cholecalciferol (vitamin D3) 50 mcg (2,000 unit) capsule 50 mcg PO DAILY Qty: 30 RF: 7 metformin 1,000 mg tablet 1,000 mg PO BID Qty: 60 RF: 1 Botox 200 unit recon soln See Rx Instructions IM .COMPLEX Qty: 1 RF: 3 propranolol 120 mg capsule,extended release 24 hr 120 mg PO DAILY Qty: 30 RF: 8 ondansetron HCl 4 mg tablet 4 mg PO Q8H PRN (Reason: nausea and vomiting) Qty: 20 RF: 1 cyclobenzaprine 10 mg tablet 10 mg PO BID PRN (Reason: muscle spasm) 30 Days Qty: 60 RF: 1 meclizine 25 mg tablet 25 mg PO BID Qty: 180 RF: 1 pantoprazole 40 mg tablet,delayed release (DR/EC) 40 mg PO QAM Qty: 90 RF: 3 levothyroxine 200 mcg tablet 200 mcg PO DAILY Qty: 90 RF: 3 cetirizine [Zyrtec] 10 mg tablet 10 mg PO BID Qty: 60 RF: 3 lorazepam 0.5 mg tablet 1 mg PO HS RF: 0 multivitamin Tablet 1 tab PO QAM RF: 0 Nurtec ODT 75 mg tablet,disintegrating 75 mg PO DAILY PRN (Reason: Migraine Headache) RF: 0 insulin aspart U-100 [Novolog U-100 Insulin aspart] 100 unit/mL Solution 1 sliding scale dose SUBCUT TID PRN (Reason: Hyperglycemia) RF: 0 hydrocortisone 10 mg tablet 20 mg PO QAM RF: 0 hydrocortisone 10 mg tablet 10 mg PO QPM RF: 0 albuterol sulfate 90 mcg/actuation HFA aerosol inhaler 1 inh inhalation QID PRN (Reason: Shortness Of Breath Or Wheezing) RF: 0 gabapentin 400 mg capsule 400 mg PO TID RF: 0 divalproex [Depakote] 500 mg tablet,delayed release (DR/EC) 1,000 mg PO QAM RF: 0 divalproex 500 mg tablet,delayed release (DR/EC) 1,500 mg PO .DAILY@MERYL MEAL RF: 0 Discontinued lacosamide [Vimpat] 50 mg tablet 50 mg PO BID 7 Days Qty: 30 RF: 0 celecoxib 200 mg capsule 200 mg PO QAM PRN (Reason: Pain) RF: 0 duloxetine 30 mg capsule,delayed release(DR/EC) 30 mg PO QAM RF: 0 Discharge Orders: Discharge Order (Routine); Ordered 03/01/22 Ordered By: Franklyn Peraza Admission Data Admit Date/Time: 02/27/22 22:30 Attending Provider: Franklyn Peraza Admit Provider: Siobhan Michele Primary Care Provider: Larry Amaral Other Providers: Siobhan Michele ; Prince Tapia ; Gennaro Ordonez ; Tahira Watt ; Rosemary Moore ; Mitzi Grace Other Interventions: Discharge Summary Assessment (RN) Last Done: 03/01/22 14:06 Coding Level of Care Code D/C DAY MANAGEMENT >30 MINS Diagnoses Elevated serum creatinine R79.89 Seizure-like activity R56.9 Secondary adrenal insufficiency E27.49 Anxiety F41.9 Pituitary hypothyroidism E03.8 Pituitary hypogonadism E23.0 Pituitary diabetes insipidus E23.2 Abdominal pain R10.84 Abdominal location: generalized
== END 2022-03-01 16:13 | disposition home health service (06) ==
LOC: 3N 18:57 → ED 18:57 → SUATTDRO 22:30 → 3N 23:16

== ENCOUNTER 2022-05-31 02:46 | Observation (INO) ==
[2022-05-31] MEDS ORDERED: ASPIRIN 81 MG CHEW ONE (03:08)
[2022-05-31 03:27] LABS: Basophils # (auto) 0.06 K/uL (0-0.2); Basophils % (auto) 0.7 %; Eosinophils # (auto) 0.26 K/uL (0-0.50); Eosinophils % (auto) 3.2 %; Hematocrit (blood only) 40.5 % (40.1-51.0); Hemoglobin 14.7 g/dl (14.0-18.0); Immature Granulocytes # (auto) 0.16 K/uL (0.00-0.02); Immature Granulocytes % (auto) 1.9 %; Lymphocytes % (auto) 38.8 %; Mean Corpuscular Hemoglobin 32.1 pg (25.0-34.0); Mean Corpuscular Hgb Conc 36.3 g/dL (32.0-36.0); Mean Corpuscular Volume 88.4 fL (80.0-100.0); Mean Platelet Volume 9.1 fL (9.4-12.4); Monocytes # (auto) 1.26 K/uL (0.24-0.82); Monocytes % (auto) 15.3 %; Neutrophils % (auto) 40.1 %; Platelet Count 162 K/uL (130-400); RDW Coefficient of Variation 12.6 % (11.5-14.5); RDW Standard Deviation 40.2 fL (36.4-46.3); Red Blood Count 4.58 M/uL (4.63-6.08); White Blood Count 8.24 K/ul (4.8-10.8)
[2022-05-31 03:38] LABS: D Dimer < 190 ug/L FEU (0-500); Partial Thromboplastin Ratio 0.9; Partial Thromboplastin Time 25.3 Seconds (21.0-31.0); Prothrombin Time 10.4 Seconds (9.0-12.0)
[2022-05-31 03:54] LABS: Albumin Level 4.1 gm/dl (3.4-5.0); BUN Creatinine Ratio 6.5 (10-20); Bilirubin,Total 0.5 mg/dl (0.2-1.0); Calcium 9.8 mg/dl (8.5-10.1); Creatinine Clr Calc Pharmacy 102.7 ml/min; Est GFR (African American) 91.4 ml/min; Est GFR (Non-African American) 78.8 ml/min; Globulin 2.1 gm/dl (2.5-4.0); Total Protein 6.2 gm/dl (6.0-8.3)
[2022-05-31 03:55] LABS: Potassium 3.6 mmol/L (3.5-5.1)
--- NOTE | 2022-05-31 04:42 | Emergency Department Note ---
Impression & Plan Chest pain, Syncope and collapse ED Provider Note CHIEF COMPLAINT: Chest pain HISTORY OF PRESENT ILLNESS: Anders Leiva is a 51 year old male with history of large pituitary tumor s/p surgical resection, panhypopituitarism, secondary adrenal insufficiency, idiopathic polyneuropathy, anxiety, generalized tonic clonic seizures, CAD, and multiple episodes of syncope and collapse s/p Medtr onic LINQ II ILR 04/29/22 who presents to the Emergency Department for evaluation of persistent sharp, midsternal chest pains since earlier this afternoon. He also associates increased shortness of breath. Currently, he rates his discomfort as a 5/10 which worsens with attempts of exertion such as getting up from his chair to take the dog out and going up steps. He denies radiation of pain down his arms, into his back or neck/jaw. No numbness/tingling. The patient does suffer frequent episodes of syncope and collapse for which he had the Medtronic LINQ placed for monitoring as noted above, currently following with Dr. Phillips of Cardiology. He did note 2 episodes of syncope today. During the fi rst episode at 1500, he states that he woke up flat on his back on the linoleum floor and believes that he hit his head. He was able to get up with help from his family. Following this episode, the patient states that he continued with the sharp midsternal chest pain and he then started to feel dizzy and sweaty. The second episode occurred around 2100 this evening and he states that he must have been "out for a couple of minutes". After waking up, the patient still had chest pain and felt dizzy and sweaty. Due to his ongoing symptoms, EMS was called for transport to the ED. En route, he was given nitroglycerin and ASA 325 mg which he states did help to improve his symptoms. Currently, he rates his discomfort as a 5/10, which he states is down from a 7/10. He does however still feel dizzy. The patient does state that his lower back hurts but he does have history of lumbar radiculopathy and states that he is scheduled for surgery next month. He otherwise denies recent fevers/chills, abdominal pain, nausea, vomiting, diarrhea or urinary symptoms. REVIEW OF SYSTEMS: 10 systems were reviewed and were negative unless otherwise stated in HPI as above PHYSICAL EXAM: VITALS: Vitals are noted on the nurse's note and reviewed by myself. Hypertensive, additional vital signs stable. General: Resting in bed, no acute distress HEENT: Normocephalic/atraumatic, mild tenderness to palpation about the posterior scalp, pupils 2mm and reactive to light with EOMI, mucous membranes moist, oropharynx clear Neck: No mid-line cervical tenderness, ROM intact without pain Resp: Good inspiratory effort on room air, lung sounds clear bilaterally CV: Regular rate and rhythm, normal S1-S2, peripheral pulses palpated Back: Tender to palpation over the midline lumbar spine (notes chronic), no obv ious step-offs or deformities Abd: Soft, non-distended, mild tenderness to palpation about the bilateral upper quadrants, no rebound, guarding or rigidity MSK: Moving all extremities with strength 5/5 and sensation intact throughout Neuro: Awake, alert and oriented x 3, interacting and answering questions appropriately Differential diagnosis includes cardiac ischemia, aortic dissection, pulmonary embolism, pericarditis, myocarditis, esophageal rupture, GERD, cholecystitis, pancreatitis, musculoskeletal, as well as other pathologies. EMERGENCY DEPARTMENT COURSE: Physical exam and history were performed. Nursing triage notes, EMR, and medication list were personally reviewed. Patient appears to have is a 51 year old male with history of large pituitary tumor s/p surgical resection, panhypopituitarism, secondary adrenal insufficiency, idiopathic polyneuropathy, anxiety, generalized tonic clonic seizures, CAD, and multiple episodes of syncope and collapse s/p Medtronic LINQ II ILR 04/29/22 who presents to the Emergency Department for evaluation of persistent sharp, midsternal chest pains since earlier this afternoon. He also associates increased shortness of breath. He suffered 2 syncopal episodes today and did hit his head during one of the falls. Additional history as described above. See physical exam as noted above. The patient was given nitroglycerin and aspirin 324 mg in route to the emergency department with improvement of his symptoms. Continuous environmental monitoring technician: Order was placed for continuous environmental monitoring technician. Patient was placed on the environmental monitoring technician. Patient was noted to be in normal sinus rhythm at an initial rate of 92 bpm. EKG was obtained and reviewed by myself. This that showed normal sinus rhythm at 100 bpm. Possible age-indeterminate inferior infarct. No concern for ectopy or acute ischemic change. When compared to study from 02/27/2022, no significant change was found. IV access was established. Labs were obtained and reviewed by myself as below. Of note, no concern for leukocytosis with a WBC of 8.24. No concern for anemia with hemoglobin 14.7. Coagulation studies WNL. Were not elevated at <190. Electrolytes WNL. Renal indices stable. LFTs WNL. High-sensitivity troponin I not elevated at 5.0. Chest x-ray was obtained and reviewed by radiologist as below. Imaging was not concerning for acute cardiopulmonary process. CAT scan of the head was also obtained for acute intracerebral pathology. Upon reevaluation, the patient was doing well. I discussed the results of the above findings with him at bedside. Given his symptoms and react history, I do feel that he will benefit from continued monitoring in the hospital. I did contact Dr. Saini of the [facility] Hospitalist group who agreed to evaluate the patient. Patient verbalized his understanding and agreement with the treatment plan as above. The chart was completed utilizing [employer] Speech Voice Recognition Software. Grammatical errors, random word insertions, pronoun errors, and incomplete sentences are an occasional consequence of this system due to software limitations, ambient noise, and hardware issues. Any formal questions or conc erns about the content, text, or information contained within the body of this dictation should be directly addressed to the provider for clarification. Past Med/Surg History Medical History Arthritis Bladder mass benign BPH with obstruction/lower urinary tract symptoms Depression Diverticular disease DM type 2 (diabetes mellitus, type 2) Encounter for pre-operative examination Growth hormone deficiency Hematuria resolved History of COVID-19 10/2021 - fatigue; resolved. Insomnia Kidney stones HX Lumbar radiculopathy Lumbar spine pain LVH (left ventricular hypertrophy) Entered in error Migraine without aura and without status migrainosus, not intractable Mitral valve regurgitation follows with Dr. Phillips Obstructive sleep apnea of adult cpap Pituitary diabetes insipidus Pituitary hypogonadism Pituitary hypothyroidism Pituitary neoplasm Prostate mass benign Rectal bleeding Secondary adrenal insufficiency Seizure disorder last seizure grand mal > gets petite mal more frequent >gets grand mal 3-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 > follows Dr. Ordonez Sensorineural hearing loss of both ears SOB (shortness of breath) on exertion Thrombocytopenia Tremor Surgical History History of bladder surgery remove mass History of brain surgery x2---2004 @ [facility] [place], 2016 @ [facility]--for brain tumors History of cardiac cath 07/2021 - no stents History of colonoscopy History of esophagogastroduodenoscopy (EGD) History of lithotripsy History of prostate surgery remove mass History of tooth extraction History of wisdom tooth extraction S/P epidural steroid injection Status post right foot surgery replaced 5th metatarsal--hardware in place Family History Grandmother (Paternal) Family history of diabetes mellitus Aunt Family history of diabetes mellitus Uncle Family history of diabetes mellitus Father Prostate cancer Heart disease Mother Cardiac disorder Grandmother (Maternal) Myocardial infarction Other Asthma Cancer Hypertension No family history of adverse response to anesthesia No family history of bleeding disorder Stroke Denies family history of Ovarian cancer Breast cancer Colorectal cancer Social History Smoking Status: Never smoker Tobacco Type: Smokeless Tobacco (Dip or Chew) Second Hand Exposure: Yes; Hx Alcohol Use: No Hx Substance Use: No Preferred Language: French Communication Ability: Effective Visual Impairment: No Limitations Hearing Ability: Normal Staff Interpreter Required: No Beliefs That Will Affect Care: None marital status: Single Current Living Situation: Alone current occupational status: unemployed Feels Safe at Home: Yes Childhood Exposure to Second-Hand Smoke: Yes (parents smoked) Seatbelt Use: always Assistive Devices: BiPap, Cane and Walker Allergies Allergies Allergy/AdvReac Type Severity Reaction Status Date / Time Iodinated Contrast Media Allergy Intermediate face/eye Verified 05/27/22 15:38 swelling Quinolones Allergy Intermediate HIVES Verified 05/27/22 15:38 Home Meds Home Medications Medication Instructions Recorded Confirmed multivitamin 1 tab PO QAM 07/12/19 05/27/22 albuterol sulfate 90 mcg/actuation 1 inh INHALATION QID PRN 07/28/21 05/27/22 aerosol inhaler gabapentin 400 mg capsule 400 mg PO TID 08/11/21 05/27/22 rimegepant 75 mg disintegrating 75 mg PO DAILY PRN 09/30/21 07/07/22 tablet (Nurtec ODT) lorazepam 0.5 mg tablet 1 mg PO HS tab 09/04/21 05/27/22 hydrocortisone 10 mg tablet 10 mg PO QPM 02/22/22 05/27/22 hydrocortisone 10 mg tablet 20 mg PO QAM 02/22/22 05/27/22 divalproex 500 mg tablet,delayed See Rx Instructions .ROUTE .COMPLEX 05/27/22 05/27/22 release (Depakote) Previous Rx's Medication Instructions Recorded cyclobenzaprine 10 mg tablet 10 mg PO BID PRN 30 Days #60 tab 09/18/20 cetirizine 10 mg tablet (Zyrtec) 10 mg PO BID #60 tab 08/05/21 blood pressure monitor #1 ea 08/06/21 blood sugar diagnostic #50 ea 08/17/21 lancets 33 gauge (OneTouch Delica #100 ea 08/17/21 Lancets) fluticasone propionate 50 1 spray INTRANASAL HS PRN #16 g 10/23/21 mcg/actuation nasal spray,suspension (Flonase Allergy Relief) alfuzosin 10 mg tablet,extended 10 mg PO QAM #90 tab 11/12/21 release 24 hr dutasteride 0.5 mg capsule 0.5 mg PO QAM #90 cap 11/12/21 (Avodart) desmopressin 0.2 mg tablet 0.2 mg PO BID #180 tab 11/17/21 pantoprazole 40 mg tablet,delayed 40 mg PO QAM #90 tab 11/17/21 release cholecalciferol (vitamin D3) 50 50 mcg PO DAILY #30 cap 12/17/21 mcg (2,000 unit) capsule onabotulinumtoxinA 200 unit See Rx Instructions IM .COMPLEX #1 12/25/21 solution for injection (Botox) ea levothyroxine 200 mcg tablet 200 mcg PO DAILY #90 tab 02/03/22 ondansetron HCl 4 mg tablet 4 mg PO Q8H PRN #20 tab 02/17/22 acetaminophen 325 mg tablet 650 mg PO Q6H PRN #30 tab 03/01/22 duloxetine 60 mg capsule,delayed 60 mg PO DAILY #30 cap 03/01/22 release Vimpat 50 mg tablet (lacosamide) See Rx Instructions .ROUTE 03/10/22 .COMPLEX #90 tab NS insulin aspart U-100 100 unit/mL 1 sliding scale dose SUBCUT TID 03/16/22 subcutaneous solution (Novolog PRN #20 ml U-100 Insulin aspart) meclizine 25 mg tablet 25 mg PO BID #180 tab 04/28/22 metformin 1,000 mg tablet 1,000 mg PO BID #60 tab 04/28/22 somatropin 5 mg/1.5 mL (3.3 mg/mL) 0.3 mg SQ PM #3 ml 05/26/22 subcutaneous pen injector (Norditropin FlexPro) testosterone 20.25 mg/1.25 gram 2 pump TOP PM #75 g 05/27/22 (1.62 %) transdermal gel pump Results & Data (ED) Vital Signs Vital Signs - 24 hr 05/31/22 02:56 05/31/22 03:00 05/31/22 03:03 Temperature 36.9 C Temperature Source Oral Pulse Rate 92 H 89 Pulse Rate [Apical] 83 Pulse Rate from SpO2 Sensor 95 H Respiratory Rate 21 14 Respiratory Effort / Characteristics Short of Breath Short of Breath Respiratory Depth Normal Normal Respiratory Pattern Regular Blood Pressure 142/89 H Blood Pressure Mean 106 Blood Pressure Position Lying Pulse Oximetry 96 96 96 Oxygen Delivery Method Room Air Room Air Sepsis Recent Fever Within 48 Hours No Sepsis New/Unexplained Change in Mental Status N/A Sepsis Action Taken by Nursing No Action Required Pulse Oximetry Post Tiitration 96 05/31/22 03:30 05/31/22 03:42 05/31/22 04:00 Temperature Temperature Source Pulse Rate 85 87 83 Pulse Rate [Apical] Pulse Rate from SpO2 Sensor 87 86 83 Respiratory Rate 23 19 19 Respiratory Effort / Characteristics Respiratory Depth Respiratory Pattern Blood Pressure 143/86 H Blood Pressure Mean 105 Blood Pressure Position Pulse Oximetry 98 97 97 Oxygen Delivery Method Sepsis Recent Fever Within 48 Hours Sepsis New/Unexplained Change in Mental Status Sepsis Action Taken by Nursing Pulse Oximetry Post Tiitration 05/31/22 04:30 Temperature Temperature Source Pulse Rate 79 Pulse Rate [Apical] Pulse Rate from SpO2 Sensor 79 Respiratory Rate 14 Respiratory Effort / Characteristics Respiratory Depth Respiratory Pattern Blood Pressure Blood Pressure Mean Blood Pressure Position Pulse Oximetry 99 Oxygen Delivery Method Sepsis Recent Fever Within 48 Hours Sepsis New/Unexplained Change in Mental Status Sepsis Action Taken by Nursing Pulse Oximetry Post Tiitration Laboratory Data Result diagrams: 05/31/22 02:50 05/31/22 02:50 Lab Results 05/31/22 05/31/22 05/31/22 Range/Units 02:50 02:50 02:50 WBC 8.24 (4.8-10.8) K/ul RBC 4.58 L (4.63-6.08) M/uL Hgb 14.7 (14.0-18.0) g/dl Hct 40.5 (40.1-51.0) % MCV 88.4 (80.0-100.0) fL MCH 32.1 (25.0-34.0) pg MCHC 36.3 H (32.0-36.0) g/dL RDW Std Deviation 40.2 (36.4-46.3) fL RDW Coeff of Yanira 12.6 (11.5-14.5) % Plt Count 162 (130-400) K/uL MPV 9.1 L (9.4-12.4) fL Immature Gran % (Auto) 1.9 % Neut % (Auto) 40.1 % Lymph % (Auto) 38.8 % [place] % (Auto) 15.3 % Eos % (Auto) 3.2 % Baso % (Auto) 0.7 % Neut # (Auto) 3.30 (1.4-6.5) K/uL Lymph # (Auto) 3.20 (1.2-3.4) K/uL [place] # (Auto) 1.26 H (0.24-0.82) K/uL Eos # (Auto) 0.26 (0-0.50) K/uL Baso # (Auto) 0.06 (0-0.2) K/uL Immature Gran # (Auto) 0.16 H (0.00-0.02) K/uL PT 10.4 (9.0-12.0) Seconds INR 1.0 (0.9-1.1) APTT 25.3 (21.0-31.0) Seconds PTT Ratio 0.9 D-Dimer < 190 (0-500) ug/L FEU Sodium 142 (136-145) mmol/L Potassium 3.6 (3.5-5.1) mmol/L Chloride 105 (98-107) mmol/L Carbon Dioxide 26 (21-32) mmol/L Anion Gap 11 (3-11) BUN 7 (6-23) mg/dl Creatinine 1.07 (0.6-1.4) mg/dl Est Cr Clr Drug Dosing 102.7 ml/min Est GFR ( Amer) 91.4 ml/min Est GFR (Non-Af Amer) 78.8 ml/min BUN/Creatinine Ratio 6.5 L (10-20) Glucose 121 H (70-99(Fasting)) mg/dl Calcium 9.8 (8.5-10.1) mg/dl Total Bilirubin 0.5 (0.2-1.0) mg/dl AST 27 (13-39) U/L ALT 24 (7-52) U/L Alkaline Phosphatase 45 (34-104) U/L Troponin I High Sens 5.0 (0-20) pg/ml Total Protein 6.2 (6.0-8.3) gm/dl Albumin 4.1 (3.4-5.0) gm/dl Globulin 2.1 L (2.5-4.0) gm/dl Albumin/Globulin Ratio 2.0 (0.9-2) Administered Medications Desmopressin Acetate (Desmopressin Acetate 0.1 Mg Tab) 0.2 mg PO BID [facility] Stop: 06/30/22 08:59 Last Admin: 05/31/22 08:26 Dose: 0.2 mg Documented by: [id number] Divalproex Sodium (Divalproex Delay Release 500 Mg Tab) 1,000 mg PO QAM [facility] Stop: 06/30/22 08:59 Last Admin: 05/31/22 08:26 Dose: 1,000 mg Documented by: [id number] Gabapentin (Gabapentin 400 Mg Cap) 400 mg PO TID [facility] Stop: 06/30/22 08:59 Last Admin: 05/31/22 08:27 Dose: 400 mg Documented by: [id number] Lacosamide (Lacosamide 50 Mg Tablet) 50 mg PO QAM [facility] Stop: 06/30/22 08:59 Last Admin: 05/31/22 08:23 Dose: 50 mg Documented by: [id number] Levothyroxine Sodium (Levothyroxine Sodium 200 Mcg Tablet) 200 mcg PO DAILYBB [facility] Stop: 06/30/22 07:29 Last Admin: 05/31/22 08:23 Dose: 200 mcg Documented by: [id number] [facility]iscellaneous [facility] Order Awaiting Action) 1 ea N/A QS OBDULIO Stop: 06/30/22 07:59 Last Admin: 05/31/22 08:25 Dose: Not Given Documented by: [id number] Miscellaneous (Dutasteride: Order Awaiting Action) 1 ea N/A QS OBDULIO Stop: 06/30/22 07:59 Last Admin: 05/31/22 08:26 Dose: Not Given Documented by: [id number] Miscellaneous (Testosterone: Order Awaiting Action) 1 ea N/A QS OBDULIO Stop: 06/30/22 07:59 Last Admin: 05/31/22 08:25 Dose: Not Given Documented by: [id number] Miscellaneous (Somatropin: Order Awaiting Action) 1 ea N/A QS OBDULIO Stop: 06/30/22 07:59 Last Admin: 05/31/22 08:25 Dose: Not Given Documented by: [id number] Pantoprazole Sodium (Pantoprazole 40 Mg Tab) 40 mg PO QAM OBDULIO Stop: 06/30/22 08:59 Last Admin: 05/31/22 08:27 Dose: 40 mg Documented by: [id number] Vitamin D (Cholecalciferol 1,000 Units 25 Mcg Tab) 2,000 units PO DAILY OBDULIO Stop: 06/30/22 08:59 Last Admin: 05/31/22 08:26 Dose: 2,000 units Documented by: [id number] Discontinued Medications Aspirin (Aspirin 81 Mg Chew) Confirm Administered Dose 324 mg .ROUTE .STK-MED ONE Stop: 05/31/22 03:09 Last Admin: 05/31/22 07:28 Dose: Not Given Documented by: [id number] Imaging Data Radiologist's Impression: Chest X-Ray 05/31/22 03:17 XR chest 1V portable CLINICAL HISTORY: chest pain. COMPARISON STUDY: 02/27/2022 TECHNIQUE: 1 view of the chest FINDINGS: Single frontal view of the chest demonstrates the cardiomediastinal silhouette to be within normal limits. A loop recorder is in place. The lungs are clear of alveolar opacities. There is no evidence for pleural effusion. There is no evidence for vascular congestion. There is no acute osseous pathology. IMPRESSION: 1. No acute cardiopulmonary disease. ACT 112: Negative or not required by law. Electronically signed by: Froylan Boss M.D. 05/31/2022 7:[address] 05/31/22 04:11 CT head/brain wo con CLINICAL HISTORY: syncope, fall and trauma to the back of the head COMPARISON STUDY: 02/27/2022 CT DOSE: 537.48 mGy.cm TECHNIQUE: Standard CT of the Brain was performed without IV contrast. A dose lowering technique was utilized adhering to the principles of ALARA. FINDINGS: Extraaxial space: There is no evidence for subdural hematoma. There are no extra-axial fluid collections. There is a prominent foramen magnum present. Ventricles and cisterns: The ventricles are normal in size and configuration. There is no evidence for midline shift or mass effect. Parenchyma: There is no subarachnoid or intraparenchymal hemorrhage. There is no evidence for an acute infarct or cerebral edema. There is homogeneous attenuation of the brain parenchyma. There are no gross mass lesions. Osseous structures: There is no evidence for an acute fracture. There has been interval development of marked mucosal thickening involving the ethmoid air cells and sphenoid sinuses. The remaining visualized paranasal sinuses are clear. The mastoid air cells are clear bilaterally. Soft tissues: There is no evidence for focal soft tissue swelling. IMPRESSION: 1. No acute intracerebral pathology. 2. Interval development of bilateral ethmoid and sphenoid sinusitis. ACT 112: Negative or not required by law. Electronically signed by: Froylan Boss M.D. 05/31/2022 7:30 AM Discharge Plan Visit Data Chief Complaint: Chest Pain Stated Complaint: CHEST PAIN/SYNCOPE ED Provider: Nano Malin ED Midlevel Provider: Cornelia Dwyer Discharge Problem: Chest pain, Syncope and collapse Patient Disposition: Admitted As Inpatient Discharge Instructions Interventions: ED Discharge Assessment Last Done: 05/31/22 07:03
--- NOTE | 2022-05-31 05:03 | History & Physical Report ---
Date of Service May 31, 2022 Assessment & Plan (1) Orthostatic hypotension: Plan: Orthostatic hypotension/frequent falls/syncope and collapse- This time accompanied by chest pain, headaches and dizziness The patient will be admitted to telemetry for serial cardiac enzymes, serial EKG's, cardiac rhythm monitoring Hold some of the medications which may potentially be contributing to symptoms: Alfuzosin, cyclobenzaprine, duloxetine, and meclizine Consult cardiology, who recently interpreted his laboratory monitor, to assess for any possible further work-up (2) Panhypopituitarism: Plan: Panhypopituitarism/hypothyroidism/hypogonadism/diabetes insipidus/growth hormone deficiency- Continue hydrocortisone, levothyroxine, somatotropin injection and testosterone pump. (3) Syncope and collapse: Plan: See above (4) Seizure disorder: Plan: Seizure disorder/pseudoseizure disorder- Continue divalproex, gabapentin, and Vimpat (5) Pituitary hypothyroidism: Plan: Continue levothyroxine (6) Pituitary hypogonadism: Plan: Continue somatotropin (7) Pituitary diabetes insipidus: Plan: Monitor electrolytes Continue desmopressin (8) Depression: Plan: Holding duloxetine due to potential for orthostasis (9) Idiopathic polyneuropathy: Plan: Continue gabapentin (10) Secondary adrenal insufficiency: Plan: Continue hydrocortisone We will hold on any stress dosing at this time (11) Pseudoseizures: History of Present Illness Chief Complaint: The patient presents to the emergency department with a recurrence of his syncopal episode, reporting to in the past 24 hours. This time however, they were accompanied by chest pain and a headache Primary Care Provider: Larry Amaral MD The patient is a 51-year-old male with a past medical history including orthostatic hypotension, CAD, cardiac recorder, pseudoseizures, panhypopituitary is him, secondary adrenal insufficiency, seizure-like activity, idiopathic polyn europathy, sensorineural hearing loss of both ears, anxiety, mitral regurgitation, QUENTIN, essential tremor, pituitary hypothyroidism, pituitary hypogonadism, pituitary diabetes insipidus, lumbar radiculopathy and depression. The patient has been following with cardiology and neurology over the past several months for frequent falls, with considerations including seizure activity, pseudoseizure activity, orthostatic hypotension. He reports having 2 syncopal episodes in the past 24 hours, however, these were accompanied by chest discomfort and headaches and dizziness. Allergies Allergy/AdvReac Type Severity Reaction Status Date / Time Iodinated Contrast Media Allergy Intermediate face/eye Verified 05/27/22 15:38 swelling Quinolones Allergy Intermediate HIVES Verified 05/27/22 15:38 Home Medications Medication Instructions Recorded Confirmed Type multivitamin 1 tab PO QAM 07/12/19 05/27/22 History cyclobenzaprine 10 mg tablet 10 mg PO BID PRN 30 Days #60 tab 09/18/20 05/27/22 Rx albuterol sulfate 90 mcg/actuation 1 inh INHALATION QID PRN 07/28/21 05/27/22 History aerosol inhaler cetirizine 10 mg tablet (Zyrtec) 10 mg PO BID #60 tab 08/05/21 05/27/22 Rx blood pressure monitor #1 ea 08/06/21 05/27/22 Rx gabapentin 400 mg capsule 400 mg PO TID 08/11/21 05/27/22 History blood sugar diagnostic #50 ea 08/17/21 05/27/22 Rx lancets 33 gauge (OneTouch Delica #100 ea 08/17/21 05/27/22 Rx Lancets) rimegepant 75 mg disintegrating 75 mg PO DAILY PRN 08/20/21 05/27/22 History tablet (Nurtec ODT) lorazepam 0.5 mg tablet 1 mg PO HS tab 09/04/21 05/27/22 History fluticasone propionate 50 1 spray INTRANASAL HS PRN #16 g 10/23/21 05/27/22 Rx mcg/actuation nasal spray,suspension (Flonase Allergy Relief) alfuzosin 10 mg tablet,extended 10 mg PO QAM #90 tab 11/12/21 05/27/22 Rx release 24 hr dutasteride 0.5 mg capsule 0.5 mg PO QAM #90 cap 11/12/21 05/27/22 Rx (Avodart) desmopressin 0.2 mg tablet 0.2 mg PO BID #180 tab 11/17/21 05/27/22 Rx pantoprazole 40 mg tablet,delayed 40 mg PO QAM #90 tab 11/17/21 05/27/22 Rx release cholecalciferol (vitamin D3) 50 50 mcg PO DAILY #30 cap 12/17/21 05/27/22 Rx mcg (2,000 unit) capsule onabotulinumtoxinA 200 unit See Rx Instructions IM .COMPLEX #1 12/25/21 05/27/22 Rx solution for injection (Botox) ea levothyroxine 200 mcg tablet 200 mcg PO DAILY #90 tab 02/03/22 05/27/22 Rx ondansetron HCl 4 mg tablet 4 mg PO Q8H PRN #20 tab 02/17/22 05/27/22 Rx hydrocortisone 10 mg tablet 10 mg PO QPM 02/22/22 05/27/22 History hydrocortisone 10 mg tablet 20 mg PO QAM 02/22/22 05/27/22 History acetaminophen 325 mg tablet 650 mg PO Q6H PRN #30 tab 03/01/22 05/27/22 Rx duloxetine 60 mg capsule,delayed 60 mg PO DAILY #30 cap 03/01/22 05/27/22 Rx release Vimpat 50 mg tablet (lacosamide) See Rx Instructions .ROUTE 03/10/22 05/27/22 Rx .COMPLEX #90 tab NS insulin aspart U-100 100 unit/mL 1 sliding scale dose SUBCUT TID 03/16/22 05/27/22 Rx subcutaneous solution (Novolog PRN #20 ml U-100 Insulin aspart) meclizine 25 mg tablet 25 mg PO BID #180 tab 04/28/22 05/27/22 Rx metformin 1,000 mg tablet 1,000 mg PO BID #60 tab 04/28/22 05/27/22 Rx somatropin 5 mg/1.5 mL (3.3 mg/mL) 0.3 mg SQ PM #3 ml 05/26/22 05/27/22 Rx subcutaneous pen injector (Norditropin FlexPro) divalproex 500 mg tablet,delayed See Rx Instructions .ROUTE .COMPLEX 05/27/22 05/27/22 History release (Depakote) testosterone 20.25 mg/1.25 gram 2 pump TOP PM #75 g 05/27/22 Rx (1.62 %) transdermal gel pump Past Med/Surg History Medical History Arthritis Bladder mass benign BPH with obstruction/lower urinary tract symptoms Depression Diverticular disease DM type 2 (diabetes mellitus, type 2) Encounter for pre-operative examination Growth hormone deficiency Hematuria resolved History of COVID-19 10/2021 - fatigue; resolved. Insomnia Kidney stones HX Lumbar radiculopathy Lumbar spine pain LVH (left ventricular hypertrophy) Entered in error Migraine without aura and without status migrainosus, not intractable Mitral valve regurgitation follows with Dr. Phillips Obstructive sleep apnea of adult cpap Pituitary diabetes insipidus Pituitary hypogonadism Pituitary hypothyroidism Pituitary neoplasm Prostate mass benign Rectal bleeding Secondary adrenal insufficiency Seizure disorder last seizure grand mal > gets petite mal more frequent >gets grand mal 3-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 > follows Dr. Ordonez Sensorineural hearing loss of both ears SOB (shortness of breath) on exertion Thrombocytopenia Tremor Surgical History History of bladder surgery remove mass History of brain surgery x2---2004 @ [facility] [place], [place] @ [facility]--for brain tumors History of cardiac cath 07/2021 - no stents History of colonoscopy History of esophagogastroduodenoscopy (EGD) History of lithotripsy History of prostate surgery remove mass History of tooth extraction History of wisdom tooth extraction S/P epidural steroid injection Status post right foot surgery replaced 5th metatarsal--hardware in place Family History Grandmother (Paternal) Family history of diabetes mellitus Aunt Family history of diabetes mellitus Uncle Family history of diabetes mellitus Father Prostate cancer Heart disease Mother Cardiac disorder Grandmother (Maternal) Myocardial infarction Other Asthma Cancer Hypertension No family history of adverse response to anesthesia No family history of bleeding disorder Stroke Denies family history of Ovarian cancer Breast cancer Colorectal cancer Social History Smoking Status: Never smoker Tobacco Type: Smokeless Tobacco (Dip or Chew) Second Hand Exposure: Yes; Hx Alcohol Use: No Hx Substance Use: No Preferred Language: Latvian Communication Ability: Effective Visual Impairment: No Limitations Hearing Ability: Normal Site Coordinator Required: No Beliefs That Will Affect Care: None marital status: Single Current Living Situation: Alone current occupational status: unemployed Feels Safe at Home: Yes Childhood Exposure to Second-Hand Smoke: Yes (parents smoked) Seatbelt Use: always Assistive Devices: BiPap and Cane Review of Systems Review of Systems: The patient denies palpitations, shortness of breath, dyspnea on exertion, cough, lower extremity swelling, sore throat, fevers, chills, sweats, nausea, vomiting, diarrhea , constipation, abdominal pain, pelvic pain, blood in urine or stool, dysuria, urinary frequency or urgency, rash, abnormal bruising or bleeding, focal weakness, numbness or tingling in arms or legs, generalized arthralgias or myalgias, back or neck pain, or night sweats. The review of systems is otherwise negative other than for that already noted above, and at least 10 systems have been reviewed. Physical Exam Physical Exam: The patient is awake, alert and oriented 3, well developed and well nourished, normocephalic and atraumatic, lying in bed and in no acute distress. HEENT--PERRL, EOMI, mucous membranes and oropharynx normal. Neck--supple. No JVD. No bruits. Thyroid normal, trachea midline, no adenopathy. Heart--normal S1 and S2. No murmurs, rubs or gallops. Lungs--clear bilaterally, no respiratory distress, no accessory muscle use. Abdomen--normal bowel sounds and soft. Nontender. Nondistended, no hernias or masses, no organomegaly. Extremities--no cyanosis or clubbing. No edema. There are good distal pulses b/l. Dermatologic--normal skin turgor, normal color, no abnormal lymph nodes, no rash. Neurologic--cranial nerves II through XII grossly intact. Rheumatologic--normal range of motion. Psychiatric--normal affect. Results & Data Results & Data ([facility]) Vital Signs (Past 12 Hours) Vital Signs Temp Pulse Pulse Resp BP Pulse Ox 05/31/22 04:30 79 14 99 05/31/22 04:00 83 19 97 05/31/22 03:42 87 19 143/86 H 97 05/31/22 03:30 85 23 98 05/31/22 03:03 83 96 05/31/22 03:00 89 14 96 05/31/22 02:56 36.9 C 92 H 21 142/89 H 96 Laboratory Results Laboratory Results WBC 8.24 K/ul (4.8-10.8) 05/31/22 02:50 RBC 4.58 M/uL (4.63-6.08) L 05/31/22 02:50 Hgb 14.7 g/dl (14.0-18.0) 05/31/22 02:50 Hct 40.5 % (40.1-51.0) 05/31/22 02:50 MCV 88.4 fL (80.0-100.0) 05/31/22 02:50 MCH 32.1 pg (25.0-34.0) 05/31/22 02:50 MCHC 36.3 g/dL (32.0-36.0) H 05/31/22 02:50 RDW Std Deviation 40.2 fL (36.4-46.3) 05/31/22 02:50 RDW Coeff of Yanira 12.6 % (11.5-14.5) 05/31/22 02:50 Plt Count 162 K/uL (130-400) 05/31/22 02:50 MPV 9.1 fL (9.4-12.4) L 05/31/22 02:50 Immature Gran % (Auto) 1.9 % 05/31/22 02:50 Neut % (Auto) 40.1 % 05/31/22 02:50 Lymph % (Auto) 38.8 % 05/31/22 02:50 [place] % (Auto) 15.3 % 05/31/22 02:50 Eos % (Auto) 3.2 % 05/31/22 02:50 Baso % (Auto) 0.7 % 05/31/22 02:50 Neut # (Auto) 3.30 K/uL (1.4-6.5) 05/31/22 02:50 Lymph # (Auto) 3.20 K/uL (1.2-3.4) 05/31/22 02:50 [place] # (Auto) 1.26 K/uL (0.24-0.82) H 05/31/22 02:50 Eos # (Auto) 0.26 K/uL (0-0.50) 05/31/22 02:50 Baso # (Auto) 0.06 K/uL (0-0.2) 05/31/22 02:50 Immature Gran # (Auto) 0.16 K/uL (0.00-0.02) H 05/31/22 02:50 PT 10.4 Seconds (9.0-12.0) 05/31/22 02:50 INR 1.0 (0.9-1.1) 05/31/22 02:50 APTT 25.3 Seconds (21.0-31.0) 05/31/22 02:50 PTT Ratio 0.9 05/31/22 02:50 D-Dimer < 190 ug/L FEU (0-500) 05/31/22 02:50 Sodium 142 mmol/L (136-145) 05/31/22 02:50 Potassium 3.6 mmol/L (3.5-5.1) 05/31/22 02:50 Chloride 105 mmol/L (98-107) 05/31/22 02:50 Carbon Dioxide 26 mmol/L (21-32) 05/31/22 02:50 Anion Gap 11 (3-11) 05/31/22 02:50 BUN 7 mg/dl (6-23) 05/31/22 02:50 Creatinine 1.07 mg/dl (0.6-1.4) 05/31/22 02:50 Est Cr Clr Drug Dosing 102.7 ml/min 05/31/22 02:50 Est GFR ( Amer) 91.4 ml/min 05/31/22 02:50 Est GFR (Non-Af Amer) 78.8 ml/min 05/31/22 02:50 BUN/Creatinine Ratio 6.5 (10-20) L 05/31/22 02:50 Glucose 121 mg/dl (70-99(Fasting)) H 05/31/22 02:50 Calcium 9.8 mg/dl (8.5-10.1) 05/31/22 02:50 Total Bilirubin 0.5 mg/dl (0.2-1.0) 05/31/22 02:50 AST 27 U/L (13-39) 05/31/22 02:50 ALT 24 U/L (7-52) 05/31/22 02:50 Alkaline Phosphatase 45 U/L (34-104) 05/31/22 02:50 Troponin I High Sens 5.0 pg/ml (0-20) 05/31/22 02:50 Total Protein 6.2 gm/dl (6.0-8.3) 05/31/22 02:50 Albumin 4.1 gm/dl (3.4-5.0) 05/31/22 02:50 Globulin 2.1 gm/dl (2.5-4.0) L 05/31/22 02:50 Albumin/Globulin Ratio 2.0 (0.9-2) 05/31/22 02:[address] of head is ordered and interpretation by [facility] pending Code Status & VTE Plan Code Status Full code VTE Prophylaxis Plan VTE Prophylaxis will be ordered: Yes PG Care Time/CCT Total # of Minutes Spent Total Time Spent with Patient: Total time spent is greater than 50% in coordination of care (as documented) at patient's floor/unit and/or counseling patient: Coding Level of Care Code INT OBSERVATION CARE 70M LVL 3 Diagnoses Orthostatic hypotension I95.1 Pseudoseizures R56.9 Panhypopituitarism E23.0 Syncope and collapse R55 Seizure disorder G40.909 Pituitary hypothyroidism E03.8 Pituitary hypogonadism E23.0 Pituitary diabetes insipidus E23.2 Depression F32.9 Idiopathic polyneuropathy G60.9 Secondary adrenal insufficiency E27.49
[2022-05-31] MEDS ORDERED: ALBUTEROL HFA 8 GM INHALER INH PRN (07:16)
[2022-05-31] MEDS ORDERED: ONDANSETRON INJ 2 MG/ML 2 ML VIAL IV PRN (07:16)
--- NOTE | 2022-05-31 07:25 | XRay Report ---
XR chest 1V portable CLINICAL HISTORY: chest pain. COMPARISON STUDY: 02/27/2022 TECHNIQUE: 1 view of the chest FINDINGS: Single frontal view of the chest demonstrates the cardiomediastinal silhouette to be within normal li mits. A loop recorder is in place. The lungs are clear of alveolar opacities. There is no evidence fo r pleural effusion. There is no evidence for vascular congestion. There is no acute osseous pathology . IMPRESSION: 1. No acute cardiopulmonary disease. ACT 112: Negative or not required by law. Electronically signed by: Froylan Boss M.D. 05/31/2022 7:24 AM
--- NOTE | 2022-05-31 07:32 | CT Scan Report ---
CT head/brain wo con CLINICAL HISTORY: syncope, fall and trauma to the back of the head COMPARISON STUDY: 02/27/2022 CT DOSE: 537.48 mGy.cm TECHNIQUE: Standard CT of the Brain was performed without IV contrast. A dose lowering technique was utilized adhering to the principles of ALARA. FINDINGS: Extraaxial space: There is no evidence for subdural hematoma. There are no extra-axial fluid collecti ons. There is a prominent foramen magnum present. Ventricles and cisterns: The ventricles are normal in size and configuration. There is no evidence fo r midline shift or mass effect. Parenchyma: There is no subarachnoid or intraparenchymal hemorrhage. There is no evidence for an acut e infarct or cerebral edema. There is homogeneous attenuation of the brain parenchyma. There are no g ross mass lesions. Osseous structures: There is no evidence for an acute fracture. There has been interval development o f marked mucosal thickening involving the ethmoid air cells and sphenoid sinuses. The remaining visua lized paranasal sinuses are clear. The mastoid air cells are clear bilaterally. Soft tissues: There is no evidence for focal soft tissue swelling. IMPRESSION: 1. No acute intracerebral pathology. 2. Interval development of bilateral ethmoid and sphenoid sinusitis. ACT 112: Negative or not required by law. Electronically signed by: Froylan Boss M.D. 05/31/2022 7:30 AM
[2022-05-31] MEDS: LACOSAMIDE 50 MG TABLET PO SCH ×2 (08:23→22:22)
[2022-05-31] MEDS: LEVOTHYROXINE SODIUM 200 MCG TABLET PO SCH (08:23)
[2022-05-31] MEDS: [UNRECOGNIZED DRUG - REMARK] SCH ×2 (08:25→19:14)
[2022-05-31] MEDS: TESTOSTERONE: ORDER AWAITING ACTION SCH ×2 (08:25→19:14)
[2022-05-31] MEDS: DIVALPROEX DELAY RELEASE 500 MG TAB PO SCH (08:26)
[2022-05-31] MEDS: DESMOPRESSIN ACETATE 0.1 MG TAB PO SCH ×2 (08:26→20:37)
[2022-05-31] MEDS: CHOLECALCIFEROL 1,000 UNITS 25 MCG TAB PO SCH (08:26)
[2022-05-31] MEDS: DUTASTERIDE: ORDER AWAITING ACTION SCH ×2 (08:26→19:14)
[2022-05-31] MEDS: PANTOprazole 40 MG TAB PO SCH (08:27)
[2022-05-31] MEDS: GABAPENTIN 400 MG CAP PO SCH ×3 (08:27→20:39)
--- NOTE | 2022-05-31 11:03 | Cardiology Consultation ---
Date of Consultation May 31, 2022 Assessment & Plan (1) Syncope and collapse: -no dysrhythmia identified on telemetry monitoring. -will ask [employer] strategic partnership representative to interrogate his loop recorder. -his extensive workup started back in July and has been normal. -could entertain a trial of Florinef for his orthostasis. (2) Mild CAD: -50% stenosis in the small ramus intermedius on catheterization in July 2021. -high sensitivity troponin is normal. -no concern for coronary ischemia. History of Present Illness Attending Physician: Judith Feldman MD History of Present Illness Mr. Leiva is a 51-year-old male admitted earlier today after 2 episodes of syncope. This consultation was ordered to assist in his management. Of note, the patient is known to me from the outpatient setting. The patient was in his usual state of health until of the day of presentation. On 2 separate occasions, he experienced an episode of syncope while letting his dog outside. Both episodes came without warning. He did not have a postictal state, bowel, or urinary incontinence. At no time has he experience nausea, vomiting, or diaphoresis associated with an episode of syncope. The patient first experienced syncope back in July of 2021. He had extensive workup including a normal stress echocardiogram, tilt-table test, and event monitor. He underwent a cardiac catheterization on August 13 which noted essentially normal coronary arteries. He did have a 50% stenosis in a very small ramus intermedius branch. The patient had a loop recorder placed on April 29 2022 due to his recurrent episodes of syncope. It was interrogated on May 26 and showed no evidence of a dysrhythmia despite his complaints of recurrent syncope. Currently, patient is resting comfortably in bed but complaining of profound fatigue. He does not open his eyes. Past medical and surgical history 1. Moderate left ventricular hypertrophy 2. Mild mitral regurgitation 3. BPH 4. Diverticulosis 5. Bipolar disorder 6. Nephrolithiasis 7. Chronic low back pain 8. Obstructive sleep apnea 9. Migraine headaches 10. Hypothyroidism 11. Pituitary benign neoplasm -2003, 2017 12. Pituitary diabetes insipidus 13. Pituitary hypogonadism 14. Adrenal insufficiency 15. Seizure disorder 16. Essential tremor 17. Left tib-fib fracture repair -2010 18. Right foot surgery-2004 19. Lithotripsy 20. Resection of pituitary tumors -2003, 2017 21. Loop recorder-04/29/2022 Social history Lives with his significant other Has 3 children Currently on disability Retired from the [employer] No tobacco alcohol Family history Mother has had 2 separate heart valve surgeries, 80 years of age Father had bypass surgery at 73, currently 80 Siblings are healthy Review of systems A 10 point review systems was negative except for that described above. Allergies Allergy/AdvReac Type Severity Reaction Status Date / Time Iodinated Contrast Media Allergy Intermediate face/eye Verified 05/27/22 15:38 swelling Quinolones Allergy Intermediate HIVES Verified 05/27/22 15:38 Home Medications Medication Instructions Recorded Confirmed Type multivitamin 1 tab PO QAM 07/12/19 05/27/22 History cyclobenzaprine 10 mg tablet 10 mg PO BID PRN 30 Days #60 tab 09/18/20 05/27/22 Rx albuterol sulfate 90 mcg/actuation 1 inh INHALATION QID PRN 07/28/21 05/27/22 History aerosol inhaler cetirizine 10 mg tablet (Zyrtec) 10 mg PO BID #60 tab 08/05/21 05/27/22 Rx blood pressure monitor #1 ea 08/06/21 05/27/22 Rx gabapentin 400 mg capsule 400 mg PO TID 08/11/21 05/27/22 History blood sugar diagnostic #50 ea 08/17/21 05/27/22 Rx lancets 33 gauge (OneTouch Delica #100 ea 08/17/21 05/27/22 Rx Lancets) rimegepant 75 mg disintegrating 75 mg PO DAILY PRN 08/20/21 05/27/22 History tablet (Nurtec ODT) lorazepam 0.5 mg tablet 1 mg PO HS tab 09/04/21 05/27/22 History fluticasone propionate 50 1 spray INTRANASAL HS PRN #16 g 10/23/21 05/27/22 Rx mcg/actuation nasal spray,suspension (Flonase Allergy Relief) alfuzosin 10 mg tablet,extended 10 mg PO QAM #90 tab 11/12/21 05/27/22 Rx release 24 hr dutasteride 0.5 mg capsule 0.5 mg PO QAM #90 cap 11/12/21 05/27/22 Rx (Avodart) desmopressin 0.2 mg tablet 0.2 mg PO BID #180 tab 11/17/21 05/27/22 Rx pantoprazole 40 mg tablet,delayed 40 mg PO QAM #90 tab 11/17/21 05/27/22 Rx release cholecalciferol (vitamin D3) 50 50 mcg PO DAILY #30 cap 12/17/21 05/27/22 Rx mcg (2,000 unit) capsule onabotulinumtoxinA 200 unit See Rx Instructions IM .COMPLEX #1 12/25/21 05/27/22 Rx solution for injection (Botox) ea levothyroxine 200 mcg tablet 200 mcg PO DAILY #90 tab 02/03/22 05/27/22 Rx ondansetron HCl 4 mg tablet 4 mg PO Q8H PRN #20 tab 02/17/22 05/27/22 Rx hydrocortisone 10 mg tablet 10 mg PO QPM 02/22/22 05/27/22 History hydrocortisone 10 mg tablet 20 mg PO QAM 02/22/22 05/27/22 History acetaminophen 325 mg tablet 650 mg PO Q6H PRN #30 tab 03/01/22 05/27/22 Rx duloxetine 60 mg capsule,delayed 60 mg PO DAILY #30 cap 03/01/22 05/27/22 Rx release Vimpat 50 mg tablet (lacosamide) See Rx Instructions .ROUTE 03/10/22 05/27/22 Rx .COMPLEX #90 tab NS insulin aspart U-100 100 unit/mL 1 sliding scale dose SUBCUT TID 03/16/22 05/27/22 Rx subcutaneous solution (Novolog PRN #20 ml U-100 Insulin aspart) meclizine 25 mg tablet 25 mg PO BID #180 tab 04/28/22 05/27/22 Rx metformin 1,000 mg tablet 1,000 mg PO BID #60 tab 04/28/22 05/27/22 Rx somatropin 5 mg/1.5 mL (3.3 mg/mL) 0.3 mg SQ PM #3 ml 05/26/22 05/27/22 Rx subcutaneous pen injector (Norditropin FlexPro) divalproex 500 mg tablet,delayed See Rx Instructions .ROUTE .COMPLEX 05/27/22 05/27/22 History release (Depakote) testosterone 20.25 mg/1.25 gram 2 pump TOP PM #75 g 05/27/22 Rx (1.62 %) transdermal gel pump Patient History Medical History Arthritis Bladder mass benign BPH with obstruction/lower urinary tract symptoms Depression Diverticular disease DM type 2 (diabetes mellitus, type 2) Encounter for pre-operative examination Growth hormone deficiency Hematuria resolved History of COVID-19 10/2021 - fatigue; resolved. Insomnia Kidney stones HX Lumbar radiculopathy Lumbar spine pain LVH (left ventricular hypertrophy) Entered in error Migraine without aura and without status migrainosus, not intractable Mitral valve regurgitation follows with Dr. Phillips Obstructive sleep apnea of adult cpap Pituitary diabetes insipidus Pituitary hypogonadism Pituitary hypothyroidism Pituitary neoplasm Prostate mass benign Rectal bleeding Secondary adrenal insufficiency Seizure disorder last seizure grand mal > gets petite mal more frequent >gets grand mal 3-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 > follows Dr. Ordonez Sensorineural hearing loss of both ears SOB (shortness of breath) on exertion Thrombocytopenia Tremor Surgical History History of bladder surgery remove mass History of brain surgery x2---2004 @ [facility], 2016 @ [facility]--for brain tumors History of cardiac cath 07/2021 - no stents History of colonoscopy History of esophagogastroduodenoscopy (EGD) History of lithotripsy History of prostate surgery remove mass History of tooth extraction History of wisdom tooth extraction S/P epidural steroid injection Status post right foot surgery replaced 5th metatarsal--hardware in place Family History Grandmother (Paternal) Family history of diabetes mellitus Aunt Family history of diabetes mellitus Uncle Family history of diabetes mellitus Father Prostate cancer Heart disease Mother Cardiac disorder Grandmother (Maternal) Myocardial infarction Other Asthma Cancer Hypertension No family history of adverse response to anesthesia No family history of bleeding disorder Stroke Denies family history of Ovarian cancer Breast cancer Colorectal cancer Social History Smoking Status: Never smoker Tobacco Type: Smokeless Tobacco (Dip or Chew) Second Hand Exposure: Yes; Hx Alcohol Use: No Hx Substance Use: No Preferred Language: Indonesian Communication Ability: Effective Visual Impairment: No Limitations Hearing Ability: Normal Bag Printer Required: No Beliefs That Will Affect Care: None marital status: Single Current Living Situation: Alone current occupational status: unemployed Feels Safe at Home: Yes Childhood Exposure to Second-Hand Smoke: Yes (parents smoked) Seatbelt Use: always Assistive Devices: BiPap, Cane and Walker Physical Exam Physical Exam: In general is well-developed well-nourished white male in no acute distress. HEENT exam is negative. Neck is supple with full carotid upstrokes. No carotid bruits. Jugular is pressure is flat at 90. There is no thyromegaly. Cardiovascular exam reveals a regular rhythm with a normal S1 and S2. No S3, S4, or murmurs are noted. Lungs are clear without rales, rhonchi or wheezes. Abdomen is soft and nontender without bruits. Extremities reveal trace pretibial edema bilaterally. Results & Data ([facility]) Vital Signs (Past 12 Hours) Vital Signs Temp Pulse Pulse Resp BP BP Pulse Ox 05/31/22 08:00 74 05/31/22 07:11 36.9 C 97 H 20 142/97 H 97 05/31/22 04:30 79 14 99 05/31/22 04:00 83 19 97 05/31/22 03:42 87 19 143/86 H 97 05/31/22 03:30 85 23 98 05/31/22 03:03 83 96 05/31/22 03:00 89 14 96 05/31/22 02:56 36.9 C 92 H 21 142/89 H 96 Laboratory Results CBC notes hemoglobin 14.7, hematocrit 40.5, white count 8.2, platelet count [id number]. Electrolytes note a sodium of 142, potassium 3.6, chloride 105, bicarb 26, BUN 7, creatinine 1.07, and glucose of 121. High sensitivity troponin is normal at 5.0. Diagnostic Findings EKG notes normal sinus rhythm without abnormalities. Chest x-ray shows no acute disease. PG Care Time/CCT Total # of Minutes Spent Total Time Spent with Patient: Total time spent is greater than 50% in coordination of care (as documented) at patient's floor/unit and/or counseling patient: Coding Level of Care Code 90590 Office/OBS Consult Lvl 4 Diagnoses Syncope and collapse R55 Mild CAD I25.10
[2022-05-31] MEDS: ACETAMINOPHEN 325 MG TAB PO PRN (12:13)
[2022-05-31 12:58] LABS: iSTAT Allen Test Pass; iSTAT Art Bld Gas pCO2 Correct 46 mmHg (35-46); iSTAT Art Bld Gas pH Corrected 7.434 (7.35-7.45); iSTAT Arterial Blood Gas HCO3 31 meg/L (19-24); iSTAT Arterial Blood Gas pCO2 46 mmHg (35-46); iSTAT Arterial Blood Gas pH 7.43 (7.35-7.45); iSTAT Arterial Blood Gas pO2 70 mmHg (80-95); iSTAT Arterial Blood Gas pO2 C 70; iSTAT Carbon Dioxide 32 mmol/L (24-31); iSTAT Hematocrit 39 % (42-52); iSTAT Hemoglobin 13.3 g/dl (14.0-18.0); iSTAT Potassium 4.2 mmol/L (3.3-5.0); iSTAT Site R Radial; iSTAT Sodium 140 mmol/L (135-144)
--- NOTE | 2022-05-31 13:04 | Electrocardiogram Report ---
Test Reason : Blood Pressure : / mmHG Vent. Rate : 100 BPM Atrial Rate : 100 BPM P-R Int : 138 ms QRS Dur : 076 ms QT Int : 326 ms P-R-T Axes : 060 005 043 degrees QTc Int : 420 ms Normal sinus rhythm Cannot rule out Inferior infarct , age undetermined Abnormal ECG When compared with ECG of 27-FEB-2022 19:07, No significant change was found Confirmed by Glynn Sheth ([id number]) on 05/31/2022 1:04:11 PM Referred By: REFERRED SELF Confirmed By:Avel Sheth
[2022-05-31] MEDS: HYDROCORTISONE 10 MG TAB PO SCH ×2 (16:32→20:39)
--- NOTE | 2022-05-31 19:13 | Hospitalist Progress Note ---
Date of Service May 31, 2022 Assessment & Plan (1) Syncope and collapse: Plan: 51yo male with PMHx including orthostatic hypotension, CAD, cardiac recorder, pseudoseizures, panhypopituitary is him, secondary adrenal insufficiency, seizure-like activity, idiopathic polyneuropathy, sensorineural hearing loss of both ears, anxiety, mitral regurgitation, QUENTIN, essential tremor, pituitary hypothyroidism, pituitary hypogonadism, pituitary diabetes insipidus, lumbar rad iculopathy and depression.The patient has been following with cardiology and neurology over the past several months for frequent falls. Admitted for 2 syncopal episodes in the past 24 hours accompanied by chest discomfort, headaches, and dizziness. Syncope -h/o orthostatic hypotension/frequent falls/syncope, this time syncopal events accompanied by chest pain, headaches and dizziness -EKG normal sinus -Chest XR neg -Echo (02/23): unremarkable -Head CT: no acute bleed -trops normal -Hold home meds which may potentially be contributing to symptoms: Alfuzosin, cyclobenzaprine, duloxetine, and meclizine -Cardiology consulted -no dysrhythmia on tele -[employer] to interrogate loop recorder on 06/01 -consider trial of florinef for his orthostasis Lethargy -progressively becoming more somnolent/sleepy, still alert -cont. BiPaP in hospital while sleeping -ammonia level unable to run due to blood being lipemic. -lyme pending -urine tox negative -no concern of adrenal crisis. -neuro consulted -consider brain MRI on 06/01 following [employer] interrogation of loop recorder CAD -Cath (Jul 2021): 50% stenosis in small ramus intermedius -trops neg -check fasting lipids Panhypopituitarism -Panhypopituitarism/hypothyroidism/hypogonadism/diabetes insipidus/growth hormone deficiency -Continue hydrocortisone, levothyroxine, somatotropin injection and testosterone pump. Seizure disorder, pseudoseizure disorder -Continue divalproex, gabapentin, and Vimpat Pituitary hypothyroidism -Continue levothyroxine Pituitary hypogonadism -Continue somatotropin Pituitary diabetes insipidus -Monitor electrolytes -Continue desmopressin Depression -Holding duloxetine due to potential for orthostasis Idiopathic polyneuropathy -Continue gabapentin Secondary adrenal insufficiency -Continue home dose hydrocortisone -no indication for stress dosing at this time DVT ppx: SCDs FEN/GI: HH Code Status: Full Dispo: PCU/tele (2) Orthostatic hypotension: (3) Panhypopituitarism: (4) Pseudoseizures: (5) Pituitary hypothyroidism: (6) Pituitary hypogonadism: (7) Pituitary diabetes insipidus: (8) Depression: (9) Idiopathic polyneuropathy: (10) Seizure disorder: Admission and Anticipated Discharge Date Admission Date: May 31, 2022 Supervising Physician Co-Signing Physician Notes Resident Physician Supervision Note: I independently interviewed and examined the patient and verified the tinoco history and physical, reviewed labs and image studies and agree with resident Dr. Penny findings and care plan. Subjective Patient seen at bedside this morning. No acute overnight events. Says he feels sleepier than usual and weak all over. At present, denies chest pain, SOB, headache, N/V, vision changes, abdominal pain. Review of Systems Review of Systems: All systems reviewed & are unremarkable except as noted in HPI & below Physical Exam Physical Exam: General-- AO3, lying in bed and in no acute distress, very sleepy HEENT--NCAT. PERRL. EOMI, moist mucous membranes Neck--supple.Thyroid normal, trachea midline, no adenopathy. Heart-- RRR. normal S1 and S2.No murmurs, rubs or gallops. Lungs--CTAB, no respiratory distress, no accessory muscle use. Abdomen-- soft. Nontender. Nondistended, no masses Extremities--no cyanosis or clubbing. No edema. Good distal pulses b/l. Skin--warm, dry, no rash. Neurologic--cranial nerves II through XII grossly intact. Psych--normal affect Results & Data Results & Data ([facility]) Vital Signs (Past 12 Hours) Vital Signs Temp Pulse Pulse Resp BP Pulse Ox 05/31/22 16:00 75 05/31/22 15:36 84 14 94 05/31/22 15:26 37.1 C 104 H 22 139/86 96 05/31/22 15:16 89 17 93 05/31/22 12:30 81 14 94 05/31/22 11:45 36.5 C 75 17 146/92 H 94 05/31/22 08:00 74 05/31/22 07:11 36.9 C 97 H 20 142/97 H 97 Laboratory Results 05/31/22 05/31/22 05/31/22 Range/Units 15:35 12:36 05:10 WBC (4.8-10.8) K/ul RBC (4.63-6.08) M/uL Hgb (14.0-18.0) g/dl POC Hgb 13.3 L (14.0-18.0) g/dl Hct (40.1-51.0) % POC Hct 39 L (42-52) % MCV (80.0-100.0) fL MCH (25.0-34.0) pg MCHC (32.0-36.0) g/dL RDW Std Deviation (36.4-46.3) fL RDW Coeff of Yanira (11.5-14.5) % Plt Count (130-400) K/uL MPV (9.4-12.4) fL Immature Gran % (Auto) % Neut % (Auto) % Lymph % (Auto) % [place] % (Auto) % Eos % (Auto) % Baso % (Auto) % Neut # (Auto) (1.4-6.5) K/uL Lymph # (Auto) (1.2-3.4) K/uL [place] # (Auto) (0.24-0.82) K/uL Eos # (Auto) (0-0.50) K/uL Baso # (Auto) (0-0.2) K/uL Immature Gran # (Auto) (0.00-0.02) K/uL PT (9.0-12.0) Seconds INR (0.9-1.1) APTT (21.0-31.0) Seconds PTT Ratio D-Dimer (0-500) ug/L FEU Sample Site R Radial POC pH 7.43 (7.35-7.45) POC pCO2 46 (35-46) mmHg POC pO2 70 L (80-95) mmHg POC HCO3 31 H (19-24) clovis/L POC Total CO2 32 H (24-31) mmol/L POC Base Excess 6.0 H (-9-1.8) clovis/L ABG pH (Temp Correct) 7.434 (7.35-7.45) ABG pCO2 (Temp Corrct 46 (35-46) mmHg POC ABG pO2 at Pt Temp 70 POC ABG O2 Sat 94.0 (90-95) % Robert Test Pass POC Sodium 140 (135-144) mmol/L Sodium (136-145) mmol/L POC Potassium 4.2 (3.3-5.0) mmol/L Potassium (3.5-5.1) mmol/L Chloride (98-107) mmol/L Carbon Dioxide (21-32) mmol/L Anion Gap (3-11) BUN (6-23) mg/dl Creatinine (0.6-1.4) mg/dl Est Cr Clr Drug Dosing ml/min Est GFR ( Amer) ml/min Est GFR (Non-Af Amer) ml/min BUN/Creatinine Ratio (10-20) Glucose (70-99(Fasting)) mg/dl Calcium (8.5-10.1) mg/dl Total Bilirubin (0.2-1.0) mg/dl AST (13-39) U/L ALT (7-52) U/L Alkaline Phosphatase (34-104) U/L Ammonia Cancelled Troponin I High Sens (0-20) pg/ml Total Protein (6.0-8.3) gm/dl Albumin (3.4-5.0) gm/dl Globulin (2.5-4.0) gm/dl Albumin/Globulin Ratio (0.9-2) Lyme Disease IgG Ab Lyme Disease IgM Ab SARS-CoV-2, RNA, NAAT NEGATIVE (NEGATIVE) 05/31/22 05/31/22 05/31/22 Range/Units 02:50 02:50 02:50 WBC (4.8-10.8) K/ul RBC (4.63-6.08) M/uL Hgb (14.0-18.0) g/dl POC Hgb (14.0-18.0) g/dl Hct (40.1-51.0) % POC Hct (42-52) % MCV (80.0-100.0) fL MCH (25.0-34.0) pg MCHC (32.0-36.0) g/dL RDW Std Deviation (36.4-46.3) fL RDW Coeff of Yanira (11.5-14.5) % Plt Count (130-400) K/uL MPV (9.4-12.4) fL Immature Gran % (Auto) % Neut % (Auto) % Lymph % (Auto) % [place] % (Auto) % Eos % (Auto) % Baso % (Auto) % Neut # (Auto) (1.4-6.5) K/uL Lymph # (Auto) (1.2-3.4) K/uL [place] # (Auto) (0.24-0.82) K/uL Eos # (Auto) (0-0.50) K/uL Baso # (Auto) (0-0.2) K/uL Immature Gran # (Auto) (0.00-0.02) K/uL PT 10.4 (9.0-12.0) Seconds INR 1.0 (0.9-1.1) APTT 25.3 (21.0-31.0) Seconds PTT Ratio 0.9 D-Dimer < 190 (0-500) ug/L FEU Sample Site POC pH (7.35-7.45) POC pCO2 (35-46) mmHg POC pO2 (80-95) mmHg POC HCO3 (19-24) clovis/L POC Total CO2 (24-31) mmol/L POC Base Excess (-9-1.8) clovis/L ABG pH (Temp Correct) (7.35-7.45) ABG pCO2 (Temp Corrct (35-46) mmHg POC ABG pO2 at Pt Temp POC ABG O2 Sat (90-95) % Robert Test POC Sodium (135-144) mmol/L Sodium 142 (136-145) mmol/L POC Potassium (3.3-5.0) mmol/L Potassium 3.6 (3.5-5.1) mmol/L Chloride 105 (98-107) mmol/L Carbon Dioxide 26 (21-32) mmol/L Anion Gap 11 (3-11) BUN 7 (6-23) mg/dl Creatinine 1.07 (0.6-1.4) mg/dl Est Cr Clr Drug Dosing 102.7 ml/min Est GFR ( Amer) 91.4 ml/min Est GFR (Non-Af Amer) 78.8 ml/min BUN/Creatinine Ratio 6.5 L (10-20) Glucose 121 H (70-99(Fasting)) mg/dl Calcium 9.8 (8.5-10.1) mg/dl Total Bilirubin 0.5 (0.2-1.0) mg/dl AST 27 (13-39) U/L ALT 24 (7-52) U/L Alkaline Phosphatase 45 (34-104) U/L Ammonia Troponin I High Sens 5.0 (0-20) pg/ml Total Protein 6.2 (6.0-8.3) gm/dl Albumin 4.1 (3.4-5.0) gm/dl Globulin 2.1 L (2.5-4.0) gm/dl Albumin/Globulin Ratio 2.0 (0.9-2) Lyme Disease IgG Ab Pending Lyme Disease IgM Ab Pending SARS-CoV-2, RNA, NAAT (NEGATIVE) 05/31/22 Range/Units 02:50 WBC 8.24 (4.8-10.8) K/ul RBC 4.58 L (4.63-6.08) M/uL Hgb 14.7 (14.0-18.0) g/dl POC Hgb (14.0-18.0) g/dl Hct 40.5 (40.1-51.0) % POC Hct (42-52) % MCV 88.4 (80.0-100.0) fL MCH 32.1 (25.0-34.0) pg MCHC 36.3 H (32.0-36.0) g/dL RDW Std Deviation 40.2 (36.4-46.3) fL RDW Coeff of Yanira 12.6 (11.5-14.5) % Plt Count 162 (130-400) K/uL MPV 9.1 L (9.4-12.4) fL Immature Gran % (Auto) 1.9 % Neut % (Auto) 40.1 % Lymph % (Auto) 38.8 % [place] % (Auto) 15.3 % Eos % (Auto) 3.2 % Baso % (Auto) 0.7 % Neut # (Auto) 3.30 (1.4-6.5) K/uL Lymph # (Auto) 3.20 (1.2-3.4) K/uL [place] # (Auto) 1.26 H (0.24-0.82) K/uL Eos # (Auto) 0.26 (0-0.50) K/uL Baso # (Auto) 0.06 (0-0.2) K/uL Immature Gran # (Auto) 0.16 H (0.00-0.02) K/uL PT (9.0-12.0) Seconds INR (0.9-1.1) APTT (21.0-31.0) Seconds PTT Ratio D-Dimer (0-500) ug/L FEU Sample Site POC pH (7.35-7.45) POC pCO2 (35-46) mmHg POC pO2 (80-95) mmHg POC HCO3 (19-24) clovsi/L POC Total CO2 (24-31) mmol/L POC Base Excess (-9-1.8) clovis/L ABG pH (Temp Correct) (7.35-7.45) ABG pCO2 (Temp Corrct (35-46) mmHg POC ABG pO2 at Pt Temp POC ABG O2 Sat (90-95) % Robert Test POC Sodium (135-144) mmol/L Sodium (136-145) mmol/L POC Potassium (3.3-5.0) mmol/L Potassium (3.5-5.1) mmol/L Chloride (98-107) mmol/L Carbon Dioxide (21-32) mmol/L Anion Gap (3-11) BUN (6-23) mg/dl Creatinine (0.6-1.4) mg/dl Est Cr Clr Drug Dosing ml/min Est GFR ( Amer) ml/min Est GFR (Non-Af Amer) ml/min BUN/Creatinine Ratio (10-20) Glucose (70-99(Fasting)) mg/dl Calcium (8.5-10.1) mg/dl Total Bilirubin (0.2-1.0) mg/dl AST (13-39) U/L ALT (7-52) U/L Alkaline Phosphatase (34-104) U/L Ammonia Troponin I High Sens (0-20) pg/ml Total Protein (6.0-8.3) gm/dl Albumin (3.4-5.0) gm/dl Globulin (2.5-4.0) gm/dl Albumin/Globulin Ratio (0.9-2) Lyme Disease IgG Ab Lyme Disease IgM Ab SARS-CoV-2, RNA, NAAT (NEGATIVE) Resident Activity Tracking Resident Involvement: Resident Care Provided Care Provided: Adult Hospital Medicine
[2022-05-31 20:02] LABS: Amphetamines+Metham, Urine Neg (Neg); Barbiturates, Urine Neg (Neg); Benzodiazepine, Urine Neg (Neg); Cocaine, Urine Neg (Neg); MDMA (Ecstacy), Urine Neg (Neg); Methadone, Urine Neg (Neg); Opiate, Urine Neg (Neg); Phencyclidine, Urine Neg (Neg)
[2022-05-31] MEDS ORDERED: DIVALPROEX DELAY RELEASE 500 MG TAB PO SCH (21:00)
--- NOTE | 2022-05-31 21:49 | Communication Note ---
Date of Service: May 31, 2022 I was informed by patient's nurse that he has been increasingly somnolent and lethargic throughout the day, and has been sleeping most of the day. Reportedly was started on BiPAP in early afternoon (uses it almost every night for CORINA) but symptoms have not improved. Of note the patient had a syncopal episode, fell and hit the back of his head several days ago. He also reports a worsening occipital headache throughout the day today, which worsens with change in position from supine to sitting. On exam the patient is lying in bed with BiPAP in place, with eyes closed, and appears very somnolent. A+O x3. He is unable to open his eyes completely when instructed to do so. Pupils are dilated but reactive to light and accommodation bilaterally. Patient reports reduced sensation of bilateral V2/V3 distribution. CNII-XII otherwise intact. Strength is 4/5 in bilateral upper/lower extremities - patient feels "generally weak". Sensation is intact in upper/lower extremities. 2+ reflexes bilaterally. No cerebellar signs. lungs CTAB, heart RRR w/o m/r/g. Skin warm, dry, no rash. EKG at bedside showing NSR with HR 93bpm. No segmental abnormalities or ST/T changes. Altered Mental Status: in context of recent fall with head trauma, with some focal neurologic findings on exam. Concerning for acute intracranial pathology. Requires urgent evaluation. - will send for stat CT head w/o contrast - ordered CBC/CMP/Mg, PT/PTT/INR, hsTroponin - check VBG to ensure that hypercapnia is not playing a role
[2022-05-31 22:42] LABS: Base Excess VBG 4.3 mEq/L; HCO3 VBG 30 mmol/L; Oxygen Saturation VBG 91.4 %; PCO2 VBG 47 mmHg (38-50); PO2 VBG 61 mmHg; pH VBG 7.41 (7.36-7.41)
[2022-05-31 22:53] LABS: Basophils # (auto) 0.05 K/uL (0-0.2); Basophils % (auto) 0.5 %; Eosinophils # (auto) 0.24 K/uL (0-0.50); Eosinophils % (auto) 2.3 %; Hematocrit (blood only) 42.5 % (40.1-51.0); Hemoglobin 15.1 g/dl (14.0-18.0); Immature Granulocytes # (auto) 0.17 K/uL (0.00-0.02); Immature Granulocytes % (auto) 1.7 %; Lymphocytes # (auto) 3.07 K/uL (1.2-3.4); Lymphocytes % (auto) 29.9 %; Mean Corpuscular Hemoglobin 31.7 pg (25.0-34.0); Mean Corpuscular Hgb Conc 35.5 g/dL (32.0-36.0); Mean Corpuscular Volume 89.3 fL (80.0-100.0); Mean Platelet Volume 8.5 fL (9.4-12.4); Monocytes # (auto) 1.06 K/uL (0.24-0.82); Monocytes % (auto) 10.3 %; Neutrophils # (auto) 5.69 K/uL (1.4-6.5); Neutrophils % (auto) 55.3 %; Platelet Count 151 K/uL (130-400); RDW Coefficient of Variation 12.4 % (11.5-14.5); Red Blood Count 4.76 M/uL (4.63-6.08); White Blood Count 10.28 K/ul (4.8-10.8)
[2022-05-31 23:06] LABS: Partial Thromboplastin Time 26.3 Seconds (21.0-31.0); Prothrombin Time 10.8 Seconds (9.0-12.0)
[2022-05-31 23:31] LABS: Albumin Globulin Ratio 1.7 (0.9-2); BUN Creatinine Ratio 10.1 (10-20); Bilirubin,Total 0.6 mg/dl (0.2-1.0); Calcium 9.1 mg/dl (8.5-10.1); Creatinine Clr Calc Pharmacy 77.8 ml/min; Est GFR (African American) 66.6 ml/min; Est GFR (Non-African American) 57.5 ml/min; Globulin 2.3 gm/dl (2.5-4.0); Magnesium 1.7 mg/dl (1.7-2.4); Total Protein 6.3 gm/dl (6.0-8.3)
[2022-05-31 23:47] LABS: Potassium 4.5 mmol/L (3.5-5.1)
[2022-06-01] MEDS: [UNRECOGNIZED DRUG - REMARK] SCH ×4 (00:17→23:06)
[2022-06-01] MEDS: DUTASTERIDE: ORDER AWAITING ACTION SCH ×4 (00:17→23:05)
[2022-06-01] MEDS: TESTOSTERONE: ORDER AWAITING ACTION SCH ×4 (00:17→23:06)
[2022-06-01] MEDS ORDERED: KETOROLAC TROMETHAMINE 15 MG/ML VIAL IV ONE (02:53)
[2022-06-01 06:11] LABS: Base Excess ABG 5.2 mEq/L (-9-1.8); HCO3 ABG 30 mmol/L (19-24); PCO2 ABG 43 mmHg (35-46); PO2 ABG 80 mmHg (80-95); pH ABG 7.45 (7.35-7.45)
[2022-06-01 06:18] LABS: Allen Test POS (Pos)
[2022-06-01] MEDS: LEVOTHYROXINE SODIUM 200 MCG TABLET PO SCH (06:23)
[2022-06-01 07:07] LABS: Basophils # (auto) 0.06 K/uL (0-0.2); Basophils % (auto) 0.5 %; Eosinophils # (auto) 0.17 K/uL (0-0.50); Eosinophils % (auto) 1.5 %; Hematocrit (blood only) 41.4 % (40.1-51.0); Immature Granulocytes # (auto) 0.13 K/uL (0.00-0.02); Immature Granulocytes % (auto) 1.2 %; Lymphocytes % (auto) 29.7 %; Mean Corpuscular Hemoglobin 32.3 pg (25.0-34.0); Mean Corpuscular Hgb Conc 36.2 g/dL (32.0-36.0); Mean Corpuscular Volume 89.2 fL (80.0-100.0); Mean Platelet Volume 8.6 fL (9.4-12.4); Monocytes # (auto) 0.97 K/uL (0.24-0.82); Monocytes % (auto) 8.7 %; Neutrophils # (auto) 6.49 K/uL (1.4-6.5); Neutrophils % (auto) 58.4 %; Platelet Count 146 K/uL (130-400); RDW Coefficient of Variation 12.6 % (11.5-14.5); RDW Standard Deviation 40.2 fL (36.4-46.3); Red Blood Count 4.64 M/uL (4.63-6.08); White Blood Count 11.12 K/ul (4.8-10.8)
[2022-06-01 07:42] LABS: Alanine Aminotransferase 22 U/L (7-52); Albumin Globulin Ratio 1.8 (0.9-2); Alkaline Phosphatase 47 U/L (34-104); Anion Gap 10 (3-11); BUN Creatinine Ratio 13.1 (10-20); Bilirubin,Total 0.6 mg/dl (0.2-1.0); Blood Urea Nitrogen 18 mg/dl (6-23); Calcium 8.8 mg/dl (8.5-10.1); Carbon Dioxide 28 mmol/L (21-32); Chloride 100 mmol/L (98-107); Chol HDL Ratio 8.1 (0-5); Cholesterol 283 mg/dl (0-200); Creatinine Clr Calc Pharmacy 78.9 ml/min; Est GFR (African American) 67.8 ml/min; Est GFR (Non-African American) 58.5 ml/min; Globulin 2.2 gm/dl (2.5-4.0); Glucose 100 mg/dl (70-99(Fasting)); HDL Cholesterol 35 mg/dl; Magnesium 1.7 mg/dl (1.7-2.4); Sodium 138 mmol/L (136-145); Total Protein 6.2 gm/dl (6.0-8.3); Triglycerides 637 mg/dl (0-150)
--- NOTE | 2022-06-01 08:23 | CT Scan Report ---
CT head/brain wo con CLINICAL HISTORY: Headache, drowsiness Technique: Contiguous axial CT images of the head were acquired from the base of the skull to the celina kiara without intravenous contrast administration. Images were viewed in brain, subdural and bone [facility]. Automated dose lowering techniques and/or adjustment according to patient size were utilized for this exam. Comparison: Comparison is made to CT head 05/31/2022 Findings: The ventricles, basal cisterns, and cerebral sulci are normal. There is no acute intracranial hemorrh age or evidence of acute territorial infarction. Neither mass effect, shift of the midline structures , nor abnormal extra-axial fluid collections are shown. Garrett cisterna magna is incidentally noted. Sinus disease is noted in the right maxillary sinus, as well as thickening in the ethmoid and sphenoi d sinuses. The orbits appear normal. There are no acute fractures of the calvaria or scalp swelling. Impression: 1. No acute intracranial hemorrhage, no evidence of acute territorial infarction or other acute intr acranial disease process. 2. Sinus disease. ACT 112: Negative or not required by law. Electronically signed by: David Ramirez M.D. 06/01/2022 8:21 AM
[2022-06-01] MEDS: DESMOPRESSIN ACETATE 0.1 MG TAB PO SCH ×2 (08:37→20:04)
[2022-06-01] MEDS: CHOLECALCIFEROL 1,000 UNITS 25 MCG TAB PO SCH (08:37)
[2022-06-01] MEDS: GABAPENTIN 400 MG CAP PO SCH ×3 (08:38→20:04)
[2022-06-01] MEDS: DIVALPROEX DELAY RELEASE 500 MG TAB PO SCH ×2 (08:38→20:03)
[2022-06-01] MEDS: HYDROCORTISONE 10 MG TAB PO SCH ×2 (08:38→20:03)
[2022-06-01] MEDS: PANTOprazole 40 MG TAB PO SCH (08:38)
--- NOTE | 2022-06-01 08:49 | Neurology Consultation ---
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 Patient also has a rather large retrocerebellar arachnoid cyst with associated mass-effect on the cerebellum although no effacement of the fourth ventricle or hydrocephalus, no brainstem compression. Patient's past medical history is also notable for obstructive sleep apnea for which she had previously followed with Dr. Mcclellan although reports inconsistent use of CPAP. The patient did have a recent syncopal episode complicated by collapse to the ground, striking the back of his head. He probably sustained a concussion and has been increasingly lethargic/somnolent in the context of this current hospitalization. He is otherwise neurologically intact, other than left visual field deficit. He is appropriate with questions and does not have focal deficits on examination. Patient's loop recorder was recently implanted and will be interrogated shortly. Previous ambulatory cardiac monitoring has not revealed a significant dysrhythmia, however. His episodes of syncope, dizziness, may be orthostatic as suggested by recent tilt table testing although not clearly meeting the diagnostic criteria for orthostatic syncope. Could have some underlying dysautonomia, vagally mediated episodes? Does have a referral to the [facility] autonomic center. I do note that his valproic acid level has tended to run high. I would recommend checking an up-to-date valproic acid level. If the level remains elevated outside of the standard therapeutic range, would consider reducing his dosage. He is also prescribed Vimpat as an adjunctive medication for his seizures. Would continue with this medication at the current dosage although its benefit is not entirely clear at this time. He is also on gabapentin although prescribed by another provider, possibly for chronic pain related to his lumbar spinal stenosis. It is possible that he could be experiencing some somnolence related in part to polypharmacy, including 3 anticonvulsant medications. Of course, he also has obstructive sleep apnea with reported inconsistent use of CPAP. Neurologic recommendations at this point in time are somewhat limited, but again, would recommend checking an up-to-date valproic acid level. I also think this patient should have a neurosurgical assessment for what appears to be a rather large retrocerebellar arachnoid cyst with associated mass-effect upon the cerebellum, but without effacement of the fourth ventricle, brainstem compression, or hydrocephalus. Nonetheless, I am unable to exclude the possibility that his arachnoid cyst could be contributing to his headaches. In terms of his seizure disorder, which is probably mixed, with both epileptic and nonepileptic seizures, patient should continue with Depakote and Vimpat. Again, however, if his Depakote level is significantly elevated would consider reducing the dosage. Also, I am uncertain if this patient actively follows with sleep medicine currently. Last clinic note from Dr. Mcclellan appears to have been in 2017. He does report inconsistent use of CPAP which could be a factor. I also considered the possibility of recurrent cataplectic attacks due to excessive somnolence/narcolepsy type picture due to sleep apnea. Patient may need an up-to-date sleep medicine evaluation including up-to-date polysomnography and MSLT. 1. Check valproic acid level 2. Consider outpatient neurosurgical evaluation of the patient's large retrocerebellar arachnoid cyst 3. Consider up-to-date sleep medicine evaluation including polysomnography and MSLT. (Could patient be experiencing cataplectic attacks?) 4. Continue to follow with Dr. Ordonez and our advanced practice clinicians in neurology clinic for ongoing management. 5. Continue Depakote and Vimpat at current dosages. Consider reducing Depakote dosage depending on valproic acid level. 5. Continue to monitor for postconcussive symptoms. May need additional outpatient physical therapy to address any lingering postconcussive symptomatology. History of Present Illness Reason for Consultation: Excessive somnolence, recurrent loss of consciousness Requesting Physician: Omer Penny DO Attending Physician: Judith Feldman MD History of Present Illness The patient is a 51-year-old male, known to neurology, has been following with Dr. Ordonez and most recently Rosemary Moore PA-C, for a variety of issues including seizure disorder and migraines occurring in the context of remote large pituitary tumor resection in 2001 presenting with pituitary apoplexy, treated surgically and with radiation, did sustain partial vision loss, incomplete improvement, with residual visual field loss to the left. Unfortunately, his pituitary tumor resection was incomplete and required repeat surgical treatment in 2016. He continues to follow with [facility], last seen this past January for ongoing management of panhypopituitarism. The patient does endorse a history of seizure disorder which began after his first pituitary resection. He has had extensive evaluation including a recent epilepsy evaluation at [facility] last month. He has had generalized tonic-clonic seizures, sometimes with morning headache, and vision change, followed by postictal fatigue. Last generalized tonic-clonic seizure may have occurred this past November. Other spells have consisted of generalized muscular tightening without associated loss of consciousness, may occur from sleep or any time. Feels fatigued afterwards. Patient does endorse tongue bite and incontinence with some of his episodes. Impression was of epilepsy manifesting as generalized convulsions after pituitary resection over 19 years ago, managed with Depakote, some of the spells have been consistent with pseudoseizures or nonepileptic events. Recommendation was to continue with Depakote. Patient also follows with [facility], has a loop recorder. Dr. Phillips did evaluate this patient yesterday for syncope and collapse, no dysrhythmia identified on telemetry monitoring, [employer] sales representative advertising to interrogate his loop recorder which was implanted April 26, 2022. The patient presented to the emergency department yesterday for further evaluation of chest discomfort and shortness of breath occurring in the context of recurrent syncope/collapse/loss of consciousness, 2 episodes reported yesterday prior to his evaluation in the emergency department. He awoke flat on his back on the linoleum floor, had struck the back of his head. Has been complaining of a generalized headache. He has been increasingly somnolent and lethargic in the context of this current hospitalization. He does have a history of sleep apnea and indicates that he has been using his CPAP inconsistently. He has followed with [facility] sleep medicine, Dr. Mcclellan, in the past although last clinic note I could find was from 2017. In spite of inconsistent use of CPAP at home, he does not complain of persistent somnolence. He denies episodes of sleep paralysis or hypnagogic or hypnopompic hallucinations. Again, he has been increasingly somnolent in the context of his current hospitalization, occurring after syncope/collapse/loss of consciousness complicated by fall to the floor, likely concussion. He had 2 head CTs completed yesterday, both of which were negative for hemorrhage or acute process. Upon further questioning, he does endorse a history of frequent global headache, often radiating from the occipital region to the temporal area. No particular pattern, alleviating, or aggravating factors. He has indicated that his headaches are sometimes severe, they sometimes limit his ability to perform usual daily activities, he very often lies down during his headaches, he sometim es feels too tired to work or perform daily activities because of his headaches. He often becomes irritated or felt up due to his headaches. His headaches sometimes limit his ability to concentrate or work on daily activities. He has been receiving Botox for chronic migraine at the [facility] neurology clinic, with Tahira Watt PA-C, last Botox administration was April 09, 2022. Of note, this patient does have a rather large retrocerebellar arachnoid cyst, best seen on his most recent brain MRI completed at [facility] this past February. There does appear to be some mass-effect on the cerebellum which is small, there is no hydrocephalus or compression on the brainstem, however, per my review of the images. The patient is aware that he has a large retrocerebellar arachnoid cyst although does not think he has ever had this evaluated by neurosurgery. He does inform me that he has a pending surgery for his lumbar spine at [facility] shortly, to address lumbar spinal stenosis, told he will need fusion. Allergies Allergy/AdvReac Type Severity Reaction Status Date / Time Iodinated Contrast Media Allergy Intermediate face/eye Verified 05/27/22 15:38 swelling Quinolones Allergy Intermediate HIVES Verified 05/27/22 15:38 Home Medications Medication Instructions Recorded Confirmed Type multivitamin 1 tab PO QAM 07/12/19 05/27/22 History cyclobenzaprine 10 mg tablet 10 mg PO BID PRN 30 Days #60 tab 09/18/20 05/27/22 Rx albuterol sulfate 90 mcg/actuation 1 inh INHALATION QID PRN 07/28/21 05/27/22 History aerosol inhaler cetirizine 10 mg tablet (Zyrtec) 10 mg PO BID #60 tab 08/05/21 05/27/22 Rx blood pressure monitor #1 ea 08/06/21 05/27/22 Rx gabapentin 400 mg capsule 400 mg PO TID 08/11/21 05/27/22 History blood sugar diagnostic #50 ea 08/17/21 05/27/22 Rx lancets 33 gauge (ZulyTouch Delica #100 ea 08/17/21 05/27/22 Rx Lancets) rimegepant 75 mg disintegrating 75 mg PO DAILY PRN 08/20/21 05/27/22 History tablet (Nurtec ODT) lorazepam 0.5 mg tablet 1 mg PO HS tab 09/04/21 05/27/22 History fluticasone propionate 50 1 spray INTRANASAL HS PRN #16 g 10/23/21 05/27/22 Rx mcg/actuation nasal spray,suspension (Flonase Allergy Relief) alfuzosin 10 mg tablet,extended 10 mg PO QAM #90 tab 11/12/21 05/27/22 Rx release 24 hr dutasteride 0.5 mg capsule 0.5 mg PO QAM #90 cap 11/12/21 05/27/22 Rx (Avodart) desmopressin 0.2 mg tablet 0.2 mg PO BID #180 tab 11/17/21 05/27/22 Rx pantoprazole 40 mg tablet,delayed 40 mg PO QAM #90 tab 11/17/21 05/27/22 Rx release cholecalciferol (vitamin D3) 50 50 mcg PO DAILY #30 cap 12/17/21 05/27/22 Rx mcg (2,000 unit) capsule onabotulinumtoxinA 200 unit See Rx Instructions IM .COMPLEX #1 12/25/21 05/27/22 Rx solution for injection (Botox) ea levothyroxine 200 mcg tablet 200 mcg PO DAILY #90 tab 02/03/22 05/27/22 Rx ondansetron HCl 4 mg tablet 4 mg PO Q8H PRN #20 tab 02/17/22 05/27/22 Rx hydrocortisone 10 mg tablet 10 mg PO QPM 02/22/22 05/27/22 History hydrocortisone 10 mg tablet 20 mg PO QAM 02/22/22 05/27/22 History acetaminophen 325 mg tablet 650 mg PO Q6H PRN #30 tab 03/01/22 05/27/22 Rx duloxetine 60 mg capsule,delayed 60 mg PO DAILY #30 cap 03/01/22 05/27/22 Rx release Vimpat 50 mg tablet (lacosamide) See Rx Instructions .ROUTE 03/10/22 05/27/22 Rx .COMPLEX #90 tab NS insulin aspart U-100 100 unit/mL 1 sliding scale dose SUBCUT TID 03/16/22 05/27/22 Rx subcutaneous solution (Novolog PRN #20 ml U-100 Insulin aspart) meclizine 25 mg tablet 25 mg PO BID #180 tab 04/28/22 05/27/22 Rx metformin 1,000 mg tablet 1,000 mg PO BID #60 tab 04/28/22 05/27/22 Rx somatropin 5 mg/1.5 mL (3.3 mg/mL) 0.3 mg SQ PM #3 ml 05/26/22 05/27/22 Rx subcutaneous pen injector (Norditropin FlexPro) divalproex 500 mg tablet,delayed See Rx Instructions .ROUTE .COMPLEX 05/27/22 05/27/22 History release (Depakote) testosterone 20.25 mg/1.25 gram 2 pump TOP PM #75 g 05/27/22 Rx (1.62 %) transdermal gel pump Patient History Medical History Arthritis Bladder mass benign BPH with obstruction/lower urinary tract symptoms Depression Diverticular disease DM type 2 (diabetes mellitus, type 2) Encounter for pre-operative examination Growth hormone deficiency Hematuria resolved History of COVID-19 10/2021 - fatigue; resolved. Insomnia Kidney stones HX Lumbar radiculopathy Lumbar spine pain LVH (left ventricular hypertrophy) Entered in error Migraine without aura and without status migrainosus, not intractable Mitral valve regurgitation follows with Dr. Phillips Obstructive sleep apnea of adult cpap Pituitary diabetes insipidus Pituitary hypogonadism Pituitary hypothyroidism Pituitary neoplasm Prostate mass benign Rectal bleeding Secondary adrenal insufficiency Seizure disorder last seizure grand mal > gets petite mal more frequent >gets grand mal 3-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 > follows Dr. Ordonez Sensorineural hearing loss of both ears SOB (shortness of breath) on exertion Thrombocytopenia Tremor Surgical History History of bladder surgery remove mass History of brain surgery x2---2004 @ [facility] [place], 2016 @ [facility]--for brain tumors History of cardiac cath 07/2021 - no stents History of colonoscopy History of esophagogastroduodenoscopy (EGD) History of lithotripsy History of prostate surgery remove mass History of tooth extraction History of wisdom tooth extraction S/P epidural steroid injection Status post right foot surgery replaced 5th metatarsal--hardware in place Family History Grandmother (Paternal) Family history of diabetes mellitus Aunt Family history of diabetes mellitus Uncle Family history of diabetes mellitus Father Prostate cancer Heart disease Mother Cardiac disorder Grandmother (Maternal) Myocardial infarction Other Asthma Cancer Hypertension No family history of adverse response to anesthesia No family history of bleeding disorder Stroke Denies family history of Ovarian cancer Breast cancer Colorectal cancer Social History Smoking Status: Never smoker Tobacco Type: Smokeless Tobacco (Dip or Chew) Second Hand Exposure: Yes; Hx Alcohol Use: No Hx Substance Use: No Preferred Language: Welsh Communication Ability: Effective Visual Impairment: No Limitations Hearing Ability: Normal Architecture Faculty Member Required: No Beliefs That Will Affect Care: None marital status: Single Current Living Situation: Alone current occupational status: unemployed Feels Safe at Home: Yes Childhood Exposure to Second-Hand Smoke: Yes (parents smoked) Seatbelt Use: always Assistive Devices: BiPap, Cane and Walker Review of Systems Constitutional: + fatigue; no fever and no chills Eyes: as per Subjective / HPI and + blind spots; no diplopia Ear, Nose, Mouth, Throat: no ear pain and no hearing loss Respiratory: no cough and no dyspnea Cardiovascular: no chest pain and no palpitations Gastrointestinal: no constipation and no diarrhea/loose stools Genitourinary: no urinary incontinence or no urinary urgency Musculoskeletal: + back pain; no muscle weakness and no muscle atrophy Integumentary: no rash and no lesions Neurologic: as per Subjective / HPI, + seizure-like activity, + syncope and + headache(s) Psychiatric: + depression and + anxiety Hematologic / Lymphatic: no easy bruising and no lymphadenopathy Exam (Neuro) Constitutional: well developed and well nourished; no acute distress Eyes: normal visual kong by confrontation, PERRL, normal accommodation and EOM intact bilaterally; no fundoscopic abnormality, no nystagmus and no papilledema Cardiovascular: Vessels: normal carotid upstroke; no carotid bruit Neurologic: Oriented to:: Person, Place and Time Memory: Short Term Intact and Remote Intact Attention: Span Intact and Concentration Intact Language: Naming Objects and Repeating Phrases Speech Fluency: negative Dysarthria Speech Aphasia: negative Aphasia Fund of Knowledge: Current Events, Past History and Vocabulary Cranial Nerves: Normal III, IV, (Pupils equal round reactive to light and accommodation, eye movements normal), V (Facial sensation intact), VII (There is no facial droop or weakness), VIII (Hearing intact), IX, X (Palate elevates to midline), XI (Shoulder shrug intact) and XII (Tongue protrudes to midline); Abnorm II (Left visual field loss noted with confrontation testing.) Motor Strength: Normal Lower Extremities and Normal Upper Extremities; negative Pronator Drift Motor Tone: Normal Lower Extremities and Normal Upper Extremities Muscle Bulk/Involuntary Movements: No Involuntary Movements; negative Muscle Atrophy Sensation: Light Touch Intact and Proprioception Intact; negative Pain/Temperature Intact or Vibration Intact Coordination: Normal; negative Limited Balance, Dysdiadochokinesia, Finger-Nose Abnormal or Heel-Hi Abnormal Deep Tendon Reflexes: Rt Triceps: 2+, Lt Triceps: 2+, Rt Biceps: 2+, Lt Biceps: 2+, Rt Brachioradialis: 2+, Lt Brachioradialis: 2+, Rt Patellar: 2+, Lt Patellar: 2+, Rt Ankle: 1+ and Lt Ankle: 1+ Special Tests: negative Babinski Present Details: Gait not tested in the context of patient's current neurological status. Results & Data ([facility]) Vital Signs (Past 12 Hours) Vital Signs Temp Pulse Pulse Resp BP Pulse Ox 06/01/22 08:00 36.6 C 87 22 139/85 92 06/01/22 07:10 87 16 95 06/01/22 04:35 37.2 C 98 H 20 146/99 H 94 06/01/22 03:10 98 H 17 95 06/01/22 00:30 37.2 C 93 H 14 141/98 H 94 05/31/22 22:35 87 19 95 Laboratory Results WBC 10.28, hemoglobin 15.1, hematocrit 42.5, MCV 89.3, platelet count 151, sodium 136, potassium 4.5, BUN 14, creatinine 1.39, calcium 9.1, magnesium 1.7, AST 23, ALT 23, vitamin B12 from this past November was 512, TSH from February 27, 2022 is 0.207, free T4 at that time was 1.10, prolactin 1.22, insulin like growth factor from March 17, 2022 was 223, vitamin D level from this past November was 27.0, urine drug screen completed yesterday was unremarkable. A valproic acid level from March 17, [address] Findings [address] of the head x2 completed yesterday reviewed as well as brain MRI completed February 24, 2022. Reviewed the images as well as the radiologist interpretation of these test, see HPI for further details. I do note that high-resolution images were completed through the temporal lobes did not reveal any significant signal abnormality or changes suggestive of mesial temporal sclerosis. Patient is also had CT angiography of the head and neck completed, in July 2021. No significant abnormalities identified at that time. Electrocardiogram completed yesterday revealed a normal sinus rhythm, 94 bpm Tilt table testing completed April 14, 2022 was considered negative by strict criteria as patient did not have syncope. However, he did experience dizziness and lightheadedness that correlated with a marked decline in blood pressure raising the possibility of orthostatic intolerance of the neurocardiogenic variety. Patient's symptoms were dominated by decline in blood pressure over the heart rate response to symptomatic hypotension was also lacking. Loop recorder implanted April 26, 2022 with [facility] cardiology, Dr. Sheth. An ambulatory EEG completed at a [facility] facility April 05, 2022 revealed bitemporal slowing, at times left greater than right, sharply contoured. There was generalized slowing. No pushbutton events. Impression was of focal and diffuse cerebral dysfunction, no seizures or interictal epileptiform abnormalities recorded. Coding Level of Care Code 74739 Initial Inpt Care Lvl 3 Diagnoses Syncope and collapse R55 Seizure disorder G40.909 Arachnoid cyst of posterior cranial fossa G93.0 Cerebral concussion S06.0X9A Obstructive sleep apnea G47.33 Panhypopituitarism E23.0
[2022-06-01 09:19] LABS: Potassium 4.1 mmol/L (3.5-5.1)
[2022-06-01] MEDS: LACOSAMIDE 50 MG TABLET PO SCH ×2 (09:48→20:20)
[2022-06-01] MEDS: ATORVASTATIN 10 MG TAB PO SCH (11:55)
[2022-06-01 12:00] LABS: Thyroid Stimulating Hormone 0.046 uIu/ml (0.300-4.500)
--- NOTE | 2022-06-01 12:06 | Electrocardiogram Report ---
Test Reason : Blood Pressure : / mmHG Vent. Rate : 094 BPM Atrial Rate : 094 BPM P-R Int : 138 ms QRS Dur : 076 ms QT Int : 350 ms P-R-T Axes : 064 000 038 degrees QTc Int : 437 ms Normal sinus rhythm When compared with ECG of 31-MAY-2022 02:50, No significant change was found Confirmed by Glynn Sheth ([id number]) on 06/01/2022 12:05:53 PM Referred By: REFERRED SELF Confirmed By:Avel Sheth
--- NOTE | 2022-06-01 12:57 | Cardiology Progress Note ---
Date of Service June 01, 2022 Assessment & Plan (1) Syncope and collapse: Plan: -no dysrhythmia identified on telemetry. -interrogation of loop recorder shows no evidence of a dysrhythmia, even with patient activated events. -his extensive workup started back in July was normal. -could entertain a trial of Florinef for his orthostasis. (2) Mild CAD: Plan: -50% stenosis in the small ramus intermedius on catheterization in July 2021. -high sensitivity troponin is normal. -no concern for coronary ischemia. Admission and Anticipated Discharge Date Admission Date: May 31, 2022 Subjective The patient is resting comfortably without complaints of chest pain or dyspnea. Does note fatigue. Barely opens his eyes. Physical Exam Physical Exam: In general is well-developed well-nourished white male in no acute distress. HEENT exam is negative. Neck is supple with full carotid upstrokes. No carotid bruits. No JVD. There is no thyromegaly. Cardiovascular exam reveals a regular rhythm with a normal S1 and S2. No S3, S4, or murmurs are noted. Lungs are clear without rales, rhonchi or wheezes. Abdomen is soft and nontender without bruits. Extremities reveal trace pretibial edema bilaterally. Results & Data ([facility]) Vital Signs (Past 12 Hours) Vital Signs Temp Pulse Pulse Resp BP Pulse Ox 06/01/22 12:06 36.7 C 109 H 20 150/72 H 94 06/01/22 08:00 36.6 C 96 H 87 22 139/85 92 06/01/22 07:10 87 16 95 06/01/22 04:35 37.2 C 98 H 20 146/99 H 94 06/01/22 03:10 98 H 17 95 Diagnostic Findings quality assurance monitor chassis is benign. Device interrogation with [employer] sales representative aircraft shows no dysrhythmia, even during patient activated events. PG Care Time/CCT Total # of Minutes Spent Total Time Spent with Patient: Total time spent is greater than 50% in coordination of care (as documented) at patient's floor/unit and/or counseling patient: Coding Level of Care Code 97021 Subseq Hosp Care Lvl 3 Diagnoses Syncope and collapse R55 Mild CAD I25.10
--- NOTE | 2022-06-01 18:04 | Hospitalist Progress Note ---
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 Admitted for 2 syncopal episodes in the past 24 hours accompanied by chest discomfort, headaches, and dizziness. Syncope -h/o orthostatic hypotension/frequent falls/syncope, this time syncopal events accompanied by chest pain, headaches and dizziness -EKG normal sinus -Chest XR neg -Echo (02/23): unremarkable -Head CT x2: no acute bleed -trops normal -orthostatics pending -Hold home meds which may potentially be contributing to symptoms: Alfuzosin, cyclobenzaprine, duloxetine, and meclizine -Cardiology consulted -no dysrhythmia on tele or loop recorder (interrogated by [employer]) even when patient activated events -consider trial of Florinef for his orthostasis Lethargy, mildly improved -was progressively becoming more somnolent/sleepy -cont. BiPaP in hospital while sleeping -ammonia level unable to run due to blood being lipemic. -lyme neg -urine tox negative -no concern of adrenal crisis -hold MRI for now given improvement -TSH pending -neuro consulted -recheck valproic acid level, elevated 128; decrease depakote to 1000mg BID -Continue to follow with Dr. Ordonez and our advanced practice clinicians in neurology clinic for ongoing management. -Continue Vimpat at current dosage. -Continue to monitor for postconcussive symptoms.May need additional outpatient physical therapy to address any lingering postconcussive symptomatology. Retrocerebellar Cyst -large retrocerebellar arachnoid cyst with associated mass-effect on the cerebellum, no effacement of 4th ventricle or hydrocephalus, no brainstem compression -outpatient neurosurgical evaluation of the patient's large retrocerebellar arachnoid cyst Sleep Disturbance -Consider up-to-date sleep medicine evaluation including polysomnography and MSLT. (Could patient be experiencing cataplectic attacks?) -CPAP/BiPap when sleeping HLD -TGs 637, Cholesterol 283, LDL 132, HDL 35 -started atorvastatin 10mg qam CAD -Cath (Jul 2021): 50% stenosis in small ramus intermedius -trops neg Panhypopituitarism -Panhypopituitarism/hypothyroidism/hypogonadism/diabetes insipidus/growth hormone deficiency -Continue hydrocortisone, levothyroxine, somatotropin injection and testosterone pump. Seizure disorder, pseudoseizure disorder -Continue divalproex, gabapentin, and Vimpat Pituitary hypothyroidism -Continue levothyroxine Pituitary hypogonadism -Continue somatotropin Pituitary diabetes insipidus -Monitor electrolytes -Continue desmopressin Depression -Holding duloxetine due to potential for orthostasis Idiopathic polyneuropathy -Continue gabapentin Secondary adrenal insufficiency -Continue home dose hydrocortisone -no indication for stress dosing at this time DVT ppx:SCDs FEN/GI:HH Code Status:Full Dispo:PCU/tele (2) Orthostatic hypotension: (3) Panhypopituitarism: (4) Pseudoseizures: (5) Pituitary hypothyroidism: (6) Pituitary hypogonadism: (7) Pituitary diabetes insipidus: (8) Depression: (9) Idiopathic polyneuropathy: (10) Seizure disorder: Admission and Anticipated Discharge Date Admission Date: May 31, 2022 Supervising Physician Co-Signing Physician Notes Resident Physician Supervision Note: I independently interviewed and examined the patient and verified the tinoco history and physical, reviewed labs and image studies and agree with resident Dr. Penny findings and care plan. Subjective The patient is resting comfortably without complaints of chest pain or dyspnea. Still feels weak and sleepy but less so than yesterday. Mild WRIGHT. Denies vision changes, dizziness, lightheadedness. Review of Systems Review of Systems: All systems reviewed & are unremarkable except as noted in HPI & below Physical Exam Physical Exam: General-- AO3, lying in bed and in no acute distress, sleepy HEENT--NCAT. PERRL. EOMI, moist mucous membranes Neck--supple.Thyroid normal, trachea midline, no adenopathy. Heart-- RRR.No murmurs, rubs or gallops. Lungs--CTAB, no respiratory distress, no accessory muscle use. Abdomen-- soft. Nontender. Nondistended, no masses Extremities--no cyanosis or clubbing. No edema. Good distal pulses b/l. Skin--warm, dry, no rash. Neurologic--cranial nerves II through XII grossly intact. Psych--normal affect Results & Data Results & Data ([facility]) Vital Signs (Past 12 Hours) Vital Signs Temp Pulse Pulse Resp BP Pulse Ox 06/01/22 15:53 36.5 C 103 H 16 133/69 94 06/01/22 12:06 36.7 C 109 H 20 150/72 H 94 06/01/22 08:00 36.6 C 96 H 87 22 139/85 92 06/01/22 07:10 87 16 95 Laboratory Results 06/01/22 06/01/22 06/01/22 Range/Units 10:58 10:58 08:24 WBC (4.8-10.8) K/ul RBC (4.63-6.08) M/uL Hgb (14.0-18.0) g/dl Hct (40.1-51.0) % MCV (80.0-100.0) fL MCH (25.0-34.0) pg MCHC (32.0-36.0) g/dL RDW Std Deviation (36.4-46.3) fL RDW Coeff of Yanira (11.5-14.5) % Plt Count (130-400) K/uL MPV (9.4-12.4) fL Immature Gran % (Auto) % Neut % (Auto) % Lymph % (Auto) % Henderson % (Auto) % Eos % (Auto) % Baso % (Auto) % Neut # (Auto) (1.4-6.5) K/uL Lymph # (Auto) (1.2-3.4) K/uL Henderson # (Auto) (0.24-0.82) K/uL Eos # (Auto) (0-0.50) K/uL Baso # (Auto) (0-0.2) K/uL Immature Gran # (Auto) (0.00-0.02) K/uL PT (9.0-12.0) Seconds INR (0.9-1.1) APTT (21.0-31.0) Seconds PTT Ratio ABG pH (7.35-7.45) ABG pCO2 (35-46) mmHg ABG pO2 (80-95) mmHg ABG HCO3 (19-24) mmol/L ABG O2 Saturation (90-95) % ABG Base Excess (-9-1.8) mEq/L Robert Test (Pos) VBG pH (7.36-7.41) VBG pCO2 (38-50) mmHg VBG pO2 mmHg VBG HCO3 mmol/L VBG O2 Saturation % VBG Base Excess mEq/L Oxygen Given Sodium (136-145) mmol/L Potassium 4.1 (3.5-5.1) mmol/L Chloride (98-107) mmol/L Carbon Dioxide (21-32) mmol/L Anion Gap (3-11) BUN (6-23) mg/dl Creatinine (0.6-1.4) mg/dl Est Cr Clr Drug Dosing ml/min Est GFR ( Amer) ml/min Est GFR (Non-Af Amer) ml/min BUN/Creatinine Ratio (10-20) Glucose (70-99(Fasting)) mg/dl Calcium (8.5-10.1) mg/dl Magnesium (1.7-2.4) mg/dl Total Bilirubin (0.2-1.0) mg/dl AST 18 (13-39) U/L ALT (7-52) U/L Alkaline Phosphatase (34-104) U/L Troponin I High Sens (0-20) pg/ml Total Protein (6.0-8.3) gm/dl Albumin (3.4-5.0) gm/dl Globulin (2.5-4.0) gm/dl Albumin/Globulin Ratio (0.9-2) Triglycerides (0-150) mg/dl Cholesterol (0-200) mg/dl LDL Cholesterol Direct 132 mg/dl LDL Cholesterol, Calc VLDL Cholesterol, Calc HDL Cholesterol 35 mg/dl Cholesterol/HDL Ratio (0-5) TSH 0.046 L (0.300-4.500) uIu/ml Free T4 1.00 (0.61-1.60) ng/dl Urine Opiates Screen (Neg) Ur Methadone, Qual (Neg) Urine Barbiturates (Neg) Valproic Acid 128 H (50-100) mcg/ml Ur Phencyclidine (PCP) (Neg) U Amphetamin/Meth Scrn (Neg) MDMA (Ecstasy) Screen (Neg) U Benzodiazepines Scrn (Neg) Ur Cocaine Metabolite (Neg) U Marijuana (THC) Screen (Neg) Lyme Disease IgG Ab Lyme Disease IgM Ab 06/01/22 06/01/22 06/01/22 Range/Units 06:01 06:01 06:01 WBC 11.12 H (4.8-10.8) K/ul RBC 4.64 (4.63-6.08) M/uL Hgb 15.0 (14.0-18.0) g/dl Hct 41.4 (40.1-51.0) % MCV 89.2 (80.0-100.0) fL MCH 32.3 (25.0-34.0) pg MCHC 36.2 H (32.0-36.0) g/dL RDW Std Deviation 40.2 (36.4-46.3) fL RDW Coeff of Yanira 12.6 (11.5-14.5) % Plt Count 146 (130-400) K/uL MPV 8.6 L (9.4-12.4) fL Immature Gran % (Auto) 1.2 % Neut % (Auto) 58.4 % Lymph % (Auto) 29.7 % Henderson % (Auto) 8.7 % Eos % (Auto) 1.5 % Baso % (Auto) 0.5 % Neut # (Auto) 6.49 (1.4-6.5) K/uL Lymph # (Auto) 3.30 (1.2-3.4) K/uL Henderson # (Auto) 0.97 H (0.24-0.82) K/uL Eos # (Auto) 0.17 (0-0.50) K/uL Baso # (Auto) 0.06 (0-0.2) K/uL Immature Gran # (Auto) 0.13 H (0.00-0.02) K/uL PT (9.0-12.0) Seconds INR (0.9-1.1) APTT (21.0-31.0) Seconds PTT Ratio ABG pH 7.45 (7.35-7.45) ABG pCO2 43 (35-46) mmHg ABG pO2 80 (80-95) mmHg ABG HCO3 30 H (19-24) mmol/L ABG O2 Saturation 98.0 H (90-95) % ABG Base Excess 5.2 H (-9-1.8) mEq/L Robert Test POS (Pos) VBG pH (7.36-7.41) VBG pCO2 (38-50) mmHg VBG pO2 mmHg VBG HCO3 mmol/L VBG O2 Saturation % VBG Base Excess mEq/L Oxygen Given RA Sodium 138 (136-145) mmol/L Potassium TNP (3.5-5.1) mmol/L Chloride 100 (98-107) mmol/L Carbon Dioxide 28 (21-32) mmol/L Anion Gap 10 (3-11) BUN 18 (6-23) mg/dl Creatinine 1.37 (0.6-1.4) mg/dl Est Cr Clr Drug Dosing 78.9 ml/min Est GFR ( Amer) 67.8 ml/min Est GFR (Non-Af Amer) 58.5 ml/min BUN/Creatinine Ratio 13.1 (10-20) Glucose 100 H (70-99(Fasting)) mg/dl Calcium 8.8 (8.5-10.1) mg/dl Magnesium 1.7 (1.7-2.4) mg/dl Total Bilirubin 0.6 (0.2-1.0) mg/dl AST TNP (13-39) U/L ALT 22 (7-52) U/L Alkaline Phosphatase 47 (34-104) U/L Troponin I High Sens (0-20) pg/ml Total Protein 6.2 (6.0-8.3) gm/dl Albumin 4.0 (3.4-5.0) gm/dl Globulin 2.2 L (2.5-4.0) gm/dl Albumin/Globulin Ratio 1.8 (0.9-2) Triglycerides 637 H (0-150) mg/dl Cholesterol 283 H (0-200) mg/dl LDL Cholesterol Direct mg/dl LDL Cholesterol, Calc TNP VLDL Cholesterol, Calc TNP HDL Cholesterol 35 mg/dl Cholesterol/HDL Ratio 8.1 H (0-5) TSH (0.300-4.500) uIu/ml Free T4 (0.61-1.60) ng/dl Urine Opiates Screen (Neg) Ur Methadone, Qual (Neg) Urine Barbiturates (Neg) Valproic Acid (50-100) mcg/ml Ur Phencyclidine (PCP) (Neg) U Amphetamin/Meth Scrn (Neg) MDMA (Ecstasy) Screen (Neg) U Benzodiazepines Scrn (Neg) Ur Cocaine Metabolite (Neg) U Marijuana (THC) Screen (Neg) Lyme Disease IgG Ab Lyme Disease IgM Ab 05/31/22 05/31/22 05/31/22 Range/Units 22:19 22:19 22:19 WBC (4.8-10.8) K/ul RBC (4.63-6.08) M/uL Hgb (14.0-18.0) g/dl Hct (40.1-51.0) % MCV (80.0-100.0) fL MCH (25.0-34.0) pg MCHC (32.0-36.0) g/dL RDW Std Deviation (36.4-46.3) fL RDW Coeff of Yanira (11.5-14.5) % Plt Count (130-400) K/uL MPV (9.4-12.4) fL Immature Gran % (Auto) % Neut % (Auto) % Lymph % (Auto) % Henderson % (Auto) % Eos % (Auto) % Baso % (Auto) % Neut # (Auto) (1.4-6.5) K/uL Lymph # (Auto) (1.2-3.4) K/uL Henderson # (Auto) (0.24-0.82) K/uL Eos # (Auto) (0-0.50) K/uL Baso # (Auto) (0-0.2) K/uL Immature Gran # (Auto) (0.00-0.02) K/uL PT 10.8 (9.0-12.0) Seconds INR 1.0 (0.9-1.1) APTT 26.3 (21.0-31.0) Seconds PTT Ratio 1.0 ABG pH (7.35-7.45) ABG pCO2 (35-46) mmHg ABG pO2 (80-95) mmHg ABG HCO3 (19-24) mmol/L ABG O2 Saturation (90-95) % ABG Base Excess (-9-1.8) mEq/L Robert Test (Pos) VBG pH 7.41 (7.36-7.41) VBG pCO2 47 (38-50) mmHg VBG pO2 61 mmHg VBG HCO3 30 mmol/L VBG O2 Saturation 91.4 % VBG Base Excess 4.3 mEq/L Oxygen Given Sodium 136 (136-145) mmol/L Potassium 4.5 D (3.5-5.1) mmol/L Chloride 101 (98-107) mmol/L Carbon Dioxide 27 (21-32) mmol/L Anion Gap 8 (3-11) BUN 14 (6-23) mg/dl Creatinine 1.39 D (0.6-1.4) mg/dl Est Cr Clr Drug Dosing 77.8 ml/min Est GFR ( Amer) 66.6 ml/min Est GFR (Non-Af Amer) 57.5 ml/min BUN/Creatinine Ratio 10.1 (10-20) Glucose 112 H (70-99(Fasting)) mg/dl Calcium 9.1 (8.5-10.1) mg/dl Magnesium 1.7 (1.7-2.4) mg/dl Total Bilirubin 0.6 (0.2-1.0) mg/dl AST 23 (13-39) U/L ALT 23 (7-52) U/L Alkaline Phosphatase 51 (34-104) U/L Troponin I High Sens 5.0 (0-20) pg/ml Total Protein 6.3 (6.0-8.3) gm/dl Albumin 4.0 (3.4-5.0) gm/dl Globulin 2.3 L (2.5-4.0) gm/dl Albumin/Globulin Ratio 1.7 (0.9-2) Triglycerides (0-150) mg/dl Cholesterol (0-200) mg/dl LDL Cholesterol Direct mg/dl LDL Cholesterol, Calc VLDL Cholesterol, Calc HDL Cholesterol mg/dl Cholesterol/HDL Ratio (0-5) TSH (0.300-4.500) uIu/ml Free T4 (0.61-1.60) ng/dl Urine Opiates Screen (Neg) Ur Methadone, Qual (Neg) Urine Barbiturates (Neg) Valproic Acid (50-100) mcg/ml Ur Phencyclidine (PCP) (Neg) U Amphetamin/Meth Scrn (Neg) MDMA (Ecstasy) Screen (Neg) U Benzodiazepines Scrn (Neg) Ur Cocaine Metabolite (Neg) U Marijuana (THC) Screen (Neg) Lyme Disease IgG Ab Lyme Disease IgM Ab 05/31/22 05/31/22 05/31/22 Range/Units 22:19 19:25 02:50 WBC 10.28 (4.8-10.8) K/ul RBC 4.76 (4.63-6.08) M/uL Hgb 15.1 (14.0-18.0) g/dl Hct 42.5 (40.1-51.0) % MCV 89.3 (80.0-100.0) fL MCH 31.7 (25.0-34.0) pg MCHC 35.5 (32.0-36.0) g/dL RDW Std Deviation 41.0 (36.4-46.3) fL RDW Coeff of Yanira 12.4 (11.5-14.5) % Plt Count 151 (130-400) K/uL MPV 8.5 L (9.4-12.4) fL Immature Gran % (Auto) 1.7 % Neut % (Auto) 55.3 % Lymph % (Auto) 29.9 % Henderson % (Auto) 10.3 % Eos % (Auto) 2.3 % Baso % (Auto) 0.5 % Neut # (Auto) 5.69 (1.4-6.5) K/uL Lymph # (Auto) 3.07 (1.2-3.4) K/uL Henderson # (Auto) 1.06 H (0.24-0.82) K/uL Eos # (Auto) 0.24 (0-0.50) K/uL Baso # (Auto) 0.05 (0-0.2) K/uL Immature Gran # (Auto) 0.17 H (0.00-0.02) K/uL PT (9.0-12.0) Seconds INR (0.9-1.1) APTT (21.0-31.0) Seconds PTT Ratio ABG pH (7.35-7.45) ABG pCO2 (35-46) mmHg ABG pO2 (80-95) mmHg ABG HCO3 (19-24) mmol/L ABG O2 Saturation (90-95) % ABG Base Excess (-9-1.8) mEq/L Robert Test (Pos) VBG pH (7.36-7.41) VBG pCO2 (38-50) mmHg VBG pO2 mmHg VBG HCO3 mmol/L VBG O2 Saturation % VBG Base Excess mEq/L Oxygen Given Sodium (136-145) mmol/L Potassium (3.5-5.1) mmol/L Chloride (98-107) mmol/L Carbon Dioxide (21-32) mmol/L Anion Gap (3-11) BUN (6-23) mg/dl Creatinine (0.6-1.4) mg/dl Est Cr Clr Drug Dosing ml/min Est GFR ( Amer) ml/min Est GFR (Non-Af Amer) ml/min BUN/Creatinine Ratio (10-20) Glucose (70-99(Fasting)) mg/dl Calcium (8.5-10.1) mg/dl Magnesium (1.7-2.4) mg/dl Total Bilirubin (0.2-1.0) mg/dl AST (13-39) U/L ALT (7-52) U/L Alkaline Phosphatase (34-104) U/L Troponin I High Sens (0-20) pg/ml Total Protein (6.0-8.3) gm/dl Albumin (3.4-5.0) gm/dl Globulin (2.5-4.0) gm/dl Albumin/Globulin Ratio (0.9-2) Triglycerides (0-150) mg/dl Cholesterol (0-200) mg/dl LDL Cholesterol Direct mg/dl LDL Cholesterol, Calc VLDL Cholesterol, Calc HDL Cholesterol mg/dl Cholesterol/HDL Ratio (0-5) TSH (0.300-4.500) uIu/ml Free T4 (0.61-1.60) ng/dl Urine Opiates Screen Neg (Neg) Ur Methadone, Qual Neg (Neg) Urine Barbiturates Neg (Neg) Valproic Acid (50-100) mcg/ml Ur Phencyclidine (PCP) Neg (Neg) U Amphetamin/Meth Scrn Neg (Neg) MDMA (Ecstasy) Screen Neg (Neg) U Benzodiazepines Scrn Neg (Neg) Ur Cocaine Metabolite Neg (Neg) U Marijuana (THC) Screen Neg (Neg) Lyme Disease IgG Ab Cancelled Lyme Disease IgM Ab Cancelled Resident Activity Tracking Resident Involvement: Resident Care Provided Care Provided: Adult [facility] Medicine
[2022-06-02] MEDS: LEVOTHYROXINE SODIUM 200 MCG TABLET PO SCH (05:44)
[2022-06-02 07:47] LABS: Basophils # (auto) 0.05 K/uL (0-0.2); Basophils % (auto) 0.5 %; Hematocrit (blood only) 38.5 % (40.1-51.0); Hemoglobin 13.8 g/dl (14.0-18.0); Immature Granulocytes # (auto) 0.09 K/uL (0.00-0.02); Immature Granulocytes % (auto) 0.9 %; Lymphocytes # (auto) 3.46 K/uL (1.2-3.4); Lymphocytes % (auto) 33.9 %; Mean Corpuscular Hemoglobin 32.1 pg (25.0-34.0); Mean Corpuscular Hgb Conc 35.8 g/dL (32.0-36.0); Mean Corpuscular Volume 89.5 fL (80.0-100.0); Mean Platelet Volume 8.3 fL (9.4-12.4); Monocytes # (auto) 0.74 K/uL (0.24-0.82); Monocytes % (auto) 7.3 %; Neutrophils # (auto) 5.66 K/uL (1.4-6.5); Neutrophils % (auto) 55.4 %; Platelet Count 140 K/uL (130-400); RDW Coefficient of Variation 12.6 % (11.5-14.5); RDW Standard Deviation 40.6 fL (36.4-46.3)
[2022-06-02] MEDS ORDERED: POLYETHYLENE (MIRALAX) 17 GM PACK PO PRN (07:58)
[2022-06-02] MEDS: DIVALPROEX DELAY RELEASE 500 MG TAB PO SCH ×2 (08:08→20:23)
[2022-06-02] MEDS: ATORVASTATIN 10 MG TAB PO SCH (08:08)
[2022-06-02] MEDS: PANTOprazole 40 MG TAB PO SCH (08:08)
[2022-06-02] MEDS: DESMOPRESSIN ACETATE 0.1 MG TAB PO SCH ×2 (08:08→20:22)
[2022-06-02] MEDS: GABAPENTIN 400 MG CAP PO SCH ×3 (08:09→20:21)
[2022-06-02] MEDS: HYDROCORTISONE 10 MG TAB PO SCH ×2 (08:09→20:21)
[2022-06-02] MEDS: CHOLECALCIFEROL 1,000 UNITS 25 MCG TAB PO SCH (08:09)
[2022-06-02 08:10] LABS: Albumin Globulin Ratio 1.7 (0.9-2); Albumin Level 3.7 gm/dl (3.4-5.0); BUN Creatinine Ratio 19.1 (10-20); Bilirubin,Total 0.6 mg/dl (0.2-1.0); Calcium 8.7 mg/dl (8.5-10.1); Est GFR (African American) 83.7 ml/min; Est GFR (Non-African American) 72.3 ml/min; Globulin 2.2 gm/dl (2.5-4.0); Potassium 3.8 mmol/L (3.5-5.1); Total Protein 5.9 gm/dl (6.0-8.3)
[2022-06-02] MEDS: DOCUSATE SODIUM 100 MG CAP PO SCH (08:21)
[2022-06-02] MEDS: LACOSAMIDE 50 MG TABLET PO SCH ×2 (09:06→20:22)
[2022-06-02] MEDS: DUTASTERIDE: ORDER AWAITING ACTION SCH (10:01)
[2022-06-02] MEDS: TESTOSTERONE: ORDER AWAITING ACTION SCH (10:02)
[2022-06-02] MEDS: [UNRECOGNIZED DRUG - REMARK] SCH ×2 (10:02→17:40)
--- NOTE | 2022-06-02 20:16 | Hospitalist Progress Note ---
Date of Service June 02, 2022 Assessment & Plan (1) Syncope and collapse: Plan: 51yo male with PMHx including orthostatic hypotension, CAD, cardiac recorder, pseudoseizures, panhypopituitary is him, secondary adrenal insufficiency, seizure-like activity, idiopathic polyneuropathy, sensorineural hearing loss of both ears, anxiety, mitral regurgitation, QUENTIN, essential tremor, pituitary hypothyroidism, pituitary hypogonadism, pituitary diabetes insipidus, lumbar rad iculopathy and depression.The patient has been following with cardiology and neurology over the past several months for frequent falls. Admitted for 2 syncopal episodes in the past 24 hours accompanied by chest discomfort, headaches, and dizziness. Syncope -h/o orthostatic hypotension (suggested from prior tilt table testing)/frequent falls/syncope, this time syncopal events accompanied by chest pain, headaches and dizziness -EKG normal sinus -Chest XR neg -Echo (02/23): unremarkable -Head CT x2: no acute bleed -trops normal -orthostatics pending -Hold home meds which may potentially be contributing to symptoms: Alfuzosin, cyclobenzaprine, duloxetine, and meclizine -Cardiology consulted -no dysrhythmia on tele or loop recorder (interrogated by [employer]) even when patient activated events -consider trial of Florinef for his orthostasis Lethargy, mildly improved -was progressively becoming more somnolent/sleepy -cont. CPAP/BiPaP in hospital while sleeping -ammonia level unable to run due to blood being lipemic -lyme neg -urine tox negative -no concern of adrenal crisis -hold MRI for now given interval improvement -neuro consulted -recheck valproic acid level, elevated 128; cont. decreased depakote 1000mg BID -Continue to follow with Dr. Ordonez and our advanced practice clinicians in neurology clinic for ongoing management. -Continue Vimpat at current dosage. -Continue to monitor for possible concussive symptoms.May need additional outpatient physical therapy to address any lingering postconcussive symptomatology. Retrocerebellar Cyst -large retrocerebellar arachnoid cyst with associated mass-effect on the cerebellum, no effacement of 4th ventricle or hydrocephalus, no brainstem compression -outpatient neurosurgical evaluation of the patient's large retrocerebellar arachnoid cyst Sleep Disturbance -Consider up-to-date sleep medicine evaluation including polysomnography and MSLT. (Could patient be experiencing cataplectic attacks?) -CPAP/BiPap when sleeping HLD -TGs 637, Cholesterol 283, LDL 132, HDL 35 -started atorvastatin 10mg qam in hospital, cont. CAD -Cath (Jul 2021): 50% stenosis in small ramus intermedius -trops neg Panhypopituitarism -Panhypopituitarism/hypothyroidism/hypogonadism/diabetes insipidus/growth hormone deficiency -Continue hydrocortisone, levothyroxine, somatotropin injection and testosterone pump. Seizure disorder, pseudoseizure disorder -Continue divalproex, gabapentin, and Vimpat Pituitary hypothyroidism -Continue levothyroxine Pituitary hypogonadism -Continue somatotropin Pituitary diabetes insipidus -Monitor electrolytes -Continue desmopressin Depression -Holding duloxetine due to potential for orthostasis Idiopathic polyneuropathy -Continue gabapentin Secondary adrenal insufficiency -Continue home dose hydrocortisone -no indication for stress dosing at this time DVT ppx:SCDs FEN/GI:HH Code Status:Full Dispo:admitted to [facility] tele (2) Orthostatic hypotension: (3) Panhypopituitarism: (4) Pseudoseizures: (5) Pituitary hypothyroidism: (6) Pituitary hypogonadism: (7) Pituitary diabetes insipidus: (8) Depression: (9) Idiopathic polyneuropathy: (10) Seizure disorder: Admission and Anticipated Discharge Date Admission Date: May 31, 2022 Supervising Physician Co-Signing Physician Notes Patient seen and examined with PGY-2 Dr. Penny. Agree with history, exam findings, assessment and plan of care as outlined. In brief, Mr. Perez is a 51 year old male with hx of orthostatic hypotension, CAD, pseudoseizures, cazares-hypopituitary, secondary adrenal insufficiency, anxiety, mitral regurg, and depression admitted with syncope x 2 in 24 hours. Today, reports feeling weak and unable to walk. Feels exhausted. Reports he had some dark red blood in the toilet this morning. Reports a small amount in the toilet; some on the toilet paper--reports a pea-sized clot. Denies pain, constipation. Tells me that he has been disabled. 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 VS and nursing notes reviewed. Awake, alert prior to conversation starting. During our conversation, he andrew nued to keep is eyes closed. Heart with regular rate and rhythm. No edema. Lungs are clear to auscultation. Labs and imaging reviewed. 1. Syncope. Recent episodes associated with chest pain, headaches, and dizziness. EKG unremarkable. Holding alfuzosin, cyclobenzaprine, duloxetine and meclizine that might be contributing. Cardiology consulted. Loop recorder interrogated. Consider florinef to help with orthostasis, but blood pressure have been a bit elevated to will defer this for now. 2. Lethargy. Neuro consulted. Does have an arachnoid cyst that is causing mass effect--as some point will need evaluation with neurosurgery to determine next steps/intervention. 3. Panhypopituitarism. Continue home hydrocortisone, levothyroxine, somatropin injection and testosterone, desmopressin 4. Seizure disorder. Continue home gabapentin, vimpat. Decreased valproate dose given his slightly elevated level. 5. Generalized weakness. Unclear etiology. Would like him to try to work with PT so see what his functional status is. Not sure there is much from a hospital standpoint to do right now for this. 6. Rectal bleeding. Small amount. Suspect a small hemorrhoidal bleed. Deferred rectal exam today. Dispo: pending clinical improvement. Subjective The patient is resting comfortably without complaints of chest pain or dyspnea. Still feels weak and sleepy, similar than yesterday. Mild WRIGHT. Denies vision changes, dizziness, lightheadedness. When ambulating says he feels extremely weak and cannot get far without assistance. Review of Systems Review of Systems: All systems reviewed & are unremarkable except as noted in HPI & below Physical Exam Physical Exam: General-- AO3, lying in bed, in no acute distress, sleepy HEENT--NCAT. EOMI, moist mucous membranes Neck--supple.Thyroid normal, trachea midline, no adenopathy. Heart-- RRR.No murmurs, rubs or gallops. Lungs--CTAB, no respiratory distress, no accessory muscle use. Abdomen-- soft. Nontender. Nondistended, no masses Extremities--no cyanosis. No edema. Good distal pulses b/l. Skin--warm, dry, no rash. Neurologic--cranial nerves II through XII grossly intact. Results & Data Results & Data ([facility]) Vital Signs (Past 12 Hours) Vital Signs Temp Pulse Pulse Resp BP Pulse Ox O2 Del Method 06/02/22 19:39 36.8 C 92 H 17 151/83 H 94 Room Air 06/02/22 16:00 90 06/02/22 16:23 Room Air 06/02/22 15:36 36.5 C 86 20 141/91 H 97 Room Air 06/02/22 11:20 36.7 C 89 20 162/78 H 96 Room Air Laboratory Results 06/02/22 06/02/22 Range/Units 06:56 06:56 WBC 10.20 (4.8-10.8) K/ul RBC 4.30 L (4.63-6.08) M/uL Hgb 13.8 L (14.0-18.0) g/dl Hct 38.5 L (40.1-51.0) % MCV 89.5 (80.0-100.0) fL MCH 32.1 (25.0-34.0) pg MCHC 35.8 (32.0-36.0) g/dL RDW Std Deviation 40.6 (36.4-46.3) fL RDW Coeff of Yanira 12.6 (11.5-14.5) % Plt Count 140 (130-400) K/uL MPV 8.3 L (9.4-12.4) fL Immature Gran % (Auto) 0.9 % Neut % (Auto) 55.4 % Lymph % (Auto) 33.9 % Bryan % (Auto) 7.3 % Eos % (Auto) 2.0 % Baso % (Auto) 0.5 % Neut # (Auto) 5.66 (1.4-6.5) K/uL Lymph # (Auto) 3.46 H (1.2-3.4) K/uL Bryan # (Auto) 0.74 (0.24-0.82) K/uL Eos # (Auto) 0.20 (0-0.50) K/uL Baso # (Auto) 0.05 (0-0.2) K/uL Immature Gran # (Auto) 0.09 H (0.00-0.02) K/uL Sodium 138 (136-145) mmol/L Potassium 3.8 (3.5-5.1) mmol/L Chloride 102 (98-107) mmol/L Carbon Dioxide 30 (21-32) mmol/L Anion Gap 6 (3-11) BUN 22 (6-23) mg/dl Creatinine 1.15 (0.6-1.4) mg/dl Est Cr Clr Drug Dosing 95.0 ml/min Est GFR ( Amer) 83.7 ml/min Est GFR (Non-Af Amer) 72.3 ml/min BUN/Creatinine Ratio 19.1 (10-20) Glucose 85 (70-99(Fasting)) mg/dl Calcium 8.7 (8.5-10.1) mg/dl Magnesium 2.0 (1.7-2.4) mg/dl Total Bilirubin 0.6 (0.2-1.0) mg/dl AST 15 (13-39) U/L ALT 15 (7-52) U/L Alkaline Phosphatase 44 (34-104) U/L Total Protein 5.9 L (6.0-8.3) gm/dl Albumin 3.7 (3.4-5.0) gm/dl Globulin 2.2 L (2.5-4.0) gm/dl Albumin/Globulin Ratio 1.7 (0.9-2) Resident Activity Tracking Resident Involvement: Resident Care Provided Care Provided: Adult Hospital Medicine
[2022-06-02] MEDS: ACETAMINOPHEN 325 MG TAB PO PRN (20:18)
[2022-06-02] MEDS ORDERED: PATIENT'S OWN CONTROLLED MED 2 EXT SCH (21:00)
[2022-06-02] MEDS ORDERED: PATIENT'S OWN CONTROLLED MED 1 EXT SCH (21:00)
[2022-06-02] MEDS ORDERED: FINASTERIDE 5 MG TAB PO SCH (21:00)
[2022-06-02] MEDS ORDERED: TESTOSTERONE GEL TOP SCH (21:00)
[2022-06-03] MEDS: LEVOTHYROXINE SODIUM 200 MCG TABLET PO SCH (05:33)
--- NOTE | 2022-06-03 07:37 | Hospitalist Progress Note ---
Date of Service June 03, 2022 Assessment & Plan (1) Syncope and collapse: Plan: 51yo male with PMHx including orthostatic hypotension, CAD, cardiac recorder, pseudoseizures, panhypopituitary is him, secondary adrenal insufficiency, seizure-like activity, idiopathic polyneuropathy, sensorineural hearing loss of both ears, anxiety, mitral regurgitation, QUENTIN, essential tremor, pituitary hypothyroidism, pituitary hypogonadism, pituitary diabetes insipidus, lumbar rad iculopathy and depression.The patient has been following with cardiology and neurology over the past several months for frequent falls. Admitted for 2 syncopal episodes in the past 24 hours accompanied by chest discomfort, headaches, and dizziness. Syncope -h/o orthostatic hypotension (suggested from prior tilt table testing)/frequent falls/syncope, this time syncopal events accompanied by chest pain, headaches and dizziness -EKG normal sinus -Chest XR neg -Echo (02/23): unremarkable -Head CT x2: no acute bleed -trops normal -orthostatics pending -Hold home meds which may potentially be contributing to symptoms: Alfuzosin, cyclobenzaprine, duloxetine, and meclizine -Cardiology consulted -no dysrhythmia on tele or loop recorder (interrogated by [employer]) even when patient activated events -consider trial of Florinef for his orthostasis Lethargy, mildly improved -was progressively becoming more somnolent/sleepy -cont. CPAP/BiPaP in hospital while sleeping -ammonia level unable to run due to blood being lipemic -lyme neg -urine tox negative -no concern of adrenal crisis -hold MRI for now given interval improvement -neuro consulted -recheck valproic acid level, elevated 128; cont. decreased depakote 1000mg BID -Continue to follow with Dr. Ordonez and our advanced practice clinicians in neurology clinic for ongoing management. -Continue Vimpat at current dosage. -Continue to monitor for possible concussive symptoms.May need additional outpatient physical therapy to address any lingering postconcussive symptomatology. Retrocerebellar Cyst -large retrocerebellar arachnoid cyst with associated mass-effect on the cerebellum, no effacement of 4th ventricle or hydrocephalus, no brainstem compression -outpatient neurosurgical evaluation of the patient's large retrocerebellar arachnoid cyst Sleep Disturbance -Consider up-to-date sleep medicine evaluation including polysomnography and MSLT. (Could patient be experiencing cataplectic attacks?) -CPAP/BiPap when sleeping HLD -TGs 637, Cholesterol 283, LDL 132, HDL 35 -started atorvastatin 10mg qam in hospital, cont. CAD -Cath (Jul 2021): 50% stenosis in small ramus intermedius -trops neg Panhypopituitarism -Panhypopituitarism/hypothyroidism/hypogonadism/diabetes insipidus/growth hormone deficiency -Continue hydrocortisone, levothyroxine, somatotropin injection and testosterone pump. Seizure disorder, pseudoseizure disorder -Continue divalproex, gabapentin, and Vimpat Pituitary hypothyroidism -Continue levothyroxine Pituitary hypogonadism -Continue somatotropin Pituitary diabetes insipidus -Monitor electrolytes -Continue desmopressin Depression -Holding duloxetine due to potential for orthostasis Idiopathic polyneuropathy -Continue gabapentin Secondary adrenal insufficiency -Continue home dose hydrocortisone -no indication for stress dosing at this time DVT ppx:SCDs FEN/GI:HH Code Status:Full Dispo:admitted to [facility] (2) Orthostatic hypotension: (3) Panhypopituitarism: (4) Pseudoseizures: (5) Pituitary hypothyroidism: (6) Pituitary hypogonadism: (7) Pituitary diabetes insipidus: (8) Depression: (9) Idiopathic polyneuropathy: (10) Seizure disorder: Admission and Anticipated Discharge Date Admission Date: June 02, 2022 Subjective The patient is resting comfortably without complaints of chest pain or dyspnea. Still feels weak and sleepy, similar than yesterday. Mild WRIGHT. Denies vision changes, dizziness, lightheadedness. When ambulating says he feels extremely weak and cannot get far without assistance. Physical Exam Physical Exam: General-- AO3, lying in bed, in no acute distress, sleepy HEENT--NCAT. EOMI, moist mucous membranes Neck--supple.Thyroid normal, trachea midline, no adenopathy. Heart-- RRR.No murmurs, rubs or gallops. Lungs--CTAB, no respiratory distress, no accessory muscle use. Abdomen-- soft. Nontender. Nondistended, no masses Extremities--no cyanosis. No edema. Good distal pulses b/l. Skin--warm, dry, no rash. Neurologic--cranial nerves II through XII grossly intact. Results & Data Results & Data ([facility]) Vital Signs (Past 12 Hours) Vital Signs Temp Pulse Pulse Resp BP Pulse Ox O2 Del Method 06/03/22 03:00 89 14 94 06/03/22 02:55 36.8 C 90 20 163/83 H 96 BiPAP 06/02/22 23:47 87 14 92 06/02/22 22:55 36.3 C L 92 H 22 168/81 H 96 BiPAP 06/02/22 22:55 84 06/02/22 20:43 83 18 94 06/02/22 19:39 36.8 C 92 H 17 151/83 H 94 Room Air FiO2 06/03/22 03:00 21 06/03/22 02:55 06/02/22 23:47 21 06/02/22 22:55 06/02/22 22:55 06/02/22 20:43 21 06/02/22 19:39
[2022-06-03 07:38] LABS: Basophils # (auto) 0.05 K/uL (0-0.2); Basophils % (auto) 0.6 %; Eosinophils # (auto) 0.19 K/uL (0-0.50); Eosinophils % (auto) 2.3 %; Hematocrit (blood only) 40.5 % (40.1-51.0); Hemoglobin 14.7 g/dl (14.0-18.0); Immature Granulocytes # (auto) 0.08 K/uL (0.00-0.02); Lymphocytes % (auto) 33.6 %; Mean Corpuscular Hemoglobin 32.5 pg (25.0-34.0); Mean Corpuscular Hgb Conc 36.3 g/dL (32.0-36.0); Mean Corpuscular Volume 89.4 fL (80.0-100.0); Mean Platelet Volume 8.4 fL (9.4-12.4); Monocytes # (auto) 0.77 K/uL (0.24-0.82); Monocytes % (auto) 9.2 %; Neutrophils # (auto) 4.44 K/uL (1.4-6.5); Neutrophils % (auto) 53.3 %; Platelet Count 133 K/uL (130-400); RDW Coefficient of Variation 12.5 % (11.5-14.5); RDW Standard Deviation 40.3 fL (36.4-46.3); Red Blood Count 4.53 M/uL (4.63-6.08); White Blood Count 8.33 K/ul (4.8-10.8)
[2022-06-03 08:05] LABS: BUN Creatinine Ratio 14.2 (10-20); Calcium 9.2 mg/dl (8.5-10.1); Creatinine Clr Calc Pharmacy 85.9 ml/min; Est GFR (African American) 74.3 ml/min; Est GFR (Non-African American) 64.1 ml/min; Potassium 4.1 mmol/L (3.5-5.1)
[2022-06-03] MEDS: HYDROCORTISONE 10 MG TAB PO SCH (08:34)
[2022-06-03] MEDS: DOCUSATE SODIUM 100 MG CAP PO SCH (08:34)
[2022-06-03] MEDS: PANTOprazole 40 MG TAB PO SCH (08:34)
[2022-06-03] MEDS: DIVALPROEX DELAY RELEASE 500 MG TAB PO SCH (08:34)
[2022-06-03] MEDS: GABAPENTIN 400 MG CAP PO SCH ×2 (08:34→13:22)
[2022-06-03] MEDS: ATORVASTATIN 10 MG TAB PO SCH (08:35)
[2022-06-03] MEDS: CHOLECALCIFEROL 1,000 UNITS 25 MCG TAB PO SCH (08:35)
[2022-06-03] MEDS: DESMOPRESSIN ACETATE 0.1 MG TAB PO SCH (08:35)
[2022-06-03] MEDS: LACOSAMIDE 50 MG TABLET PO SCH (09:06)
--- NOTE | 2022-06-03 14:50 | Discharge Summary ---
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 The patient has been following with cardiology and neurology over the past several months for frequent falls, with considerations including seizure activity, pseudoseizure activity, orthostatic hypotension. He reports having 2 syncopal episodes in the past 24 hours, however, these were accompanied by chest discomfort and headaches and dizziness. Principal Diagnosis Syncope Discharge Exam General-- AO3, lying in bed, in no acute distress, less sleepy HEENT--NCAT. EOMI, moist mucous membranes Neck--supple.Thyroid normal, trachea midline. Heart-- RRR.No murmurs, rubs or gallops. Lungs--CTAB, no respiratory distress, no accessory muscle use. Abdomen-- soft. Nontender. Nondistended, no masses Extremities--no cyanosis. No edema. Skin--warm, dry, no rash. Neurologic--cranial nerves II through XII grossly intact. Discharge Data Allergies Allergy/AdvReac Type Severity Reaction Status Date / Time Iodinated Contrast Media Allergy Intermediate face/eye Verified 05/27/22 15:38 swelling Quinolones Allergy Intermediate HIVES Verified 05/27/22 15:38 Consultations 05/31/22 04:45 ED Decision to Admit Stat 05/31/22 07:16 Consult Cardiology Routine 05/31/22 15:18 Consult Neurology Routine Ordered Studies Laboratory Results WBC 8.33 K/ul (4.8-10.8) 06/03/22 06:29 RBC 4.53 M/uL (4.63-6.08) L 06/03/22 06:29 Hgb 14.7 g/dl (14.0-18.0) 06/03/22 06:29 POC Hgb 13.3 g/dl (14.0-18.0) L 05/31/22 12:36 Hct 40.5 % (40.1-51.0) 06/03/22 06:29 POC Hct 39 % (42-52) L 05/31/22 12:36 MCV 89.4 fL (80.0-100.0) 06/03/22 06:29 MCH 32.5 pg (25.0-34.0) 06/03/22 06:29 MCHC 36.3 g/dL (32.0-36.0) H 06/03/22 06:29 RDW Std Deviation 40.3 fL (36.4-46.3) 06/03/22 06: RDW Coeff of Yanira 12.5 % (11.5-14.5) 06/03/22 06: Plt Count 133 K/uL (130-400) 06/03/22 06: MPV 8.4 fL (9.4-12.4) L 06/03/22 06: Immature Gran % (Auto) 1.0 % 06/03/22 06: Neut % (Auto) 53.3 % 06/03/22 06:29 Lymph % (Auto) 33.6 % 06/03/22 06:29 [place] % (Auto) 9.2 % 06/03/22 06:29 Eos % (Auto) 2.3 % 06/03/22 06:29 Baso % (Auto) 0.6 % 06/03/22 06:29 Neut # (Auto) 4.44 K/uL (1.4-6.5) 06/03/22 06:29 Lymph # (Auto) 2.80 K/uL (1.2-3.4) 06/03/22 06:29 [place] # (Auto) 0.77 K/uL (0.24-0.82) 06/03/22 06:29 Eos # (Auto) 0.19 K/uL (0-0.50) 06/03/22 06:29 Baso # (Auto) 0.05 K/uL (0-0.2) 06/03/22 06: Immature Gran # (Auto) 0.08 K/uL (0.00-0.02) H 06/03/22 06:29 PT 10.8 Seconds (9.0-12.0) 05/31/22 22:19 INR 1.0 (0.9-1.1) 05/31/22 22:19 APTT 26.3 Seconds (21.0-31.0) 05/31/22 22: PTT Ratio 1.0 05/31/22 22:19 D-Dimer < 190 ug/L FEU (0-500) 05/31/22 02:50 Sample Site R Radial 05/31/22 12:36 POC pH 7.43 (7.35-7.45) 05/31/22 12:36 POC pCO2 46 mmHg (35-46) 05/31/22 12:36 POC pO2 70 mmHg (80-95) L 05/31/22 12:36 POC HCO3 31 clovis/L (19-24) H 05/31/22 12:36 POC Total CO2 32 mmol/L (24-31) H 05/31/22 12:36 POC Base Excess 6.0 clovis/L (-9-1.8) H 05/31/22 12:36 ABG pH 7.45 (7.35-7.45) 06/01/22 06:01 ABG pH (Temp Correct) 7.434 (7.35-7.45) 05/31/22 12:36 ABG pCO2 43 mmHg (35-46) 06/01/22 06:01 ABG pCO2 (Temp Corrct 46 mmHg (35-46) 05/31/22 12:36 ABG pO2 80 mmHg (80-95) 06/01/22 06:01 POC ABG pO2 at Pt Temp 70 05/31/22 12:36 ABG HCO3 30 mmol/L (19-24) H 06/01/22 06:01 POC ABG O2 Sat 94.0 % (90-95) 05/31/22 12:36 ABG O2 Saturation 98.0 % (90-95) H 06/01/22 06:01 ABG Base Excess 5.2 mEq/L (-9-1.8) H 06/01/22 06:01 Robert Test POS (Pos) 06/01/22 06:01 VBG pH 7.41 (7.36-7.41) 05/31/22 22:19 VBG pCO2 47 mmHg (38-50) 05/31/22 22:19 VBG pO2 61 mmHg 05/31/22 22:19 VBG HCO3 30 mmol/L 05/31/22 22:19 VBG O2 Saturation 91.4 % 05/31/22 22:19 VBG Base Excess 4.3 mEq/L 05/31/22 22:19 Oxygen Given RA 06/01/22 06:01 POC Sodium 140 mmol/L (135-144) 05/31/22 12:36 Sodium 141 mmol/L (136-145) 06/03/22 06:29 POC Potassium 4.2 mmol/L (3.3-5.0) 05/31/22 12:36 Potassium 4.1 mmol/L (3.5-5.1) 06/03/22 06:29 Chloride 104 mmol/L (98-107) 06/03/22 06:29 Carbon Dioxide 30 mmol/L (21-32) 06/03/22 06:29 Anion Gap 7 (3-11) 06/03/22 06:29 BUN 18 mg/dl (6-23) 06/03/22 06:29 Creatinine 1.27 mg/dl (0.6-1.4) 06/03/22 06:29 Est Cr Clr Drug Dosing 85.9 ml/min 06/03/22 06:29 Est GFR ( Amer) 74.3 ml/min 06/03/22 06:29 Est GFR (Non-Af Amer) 64.1 ml/min 06/03/22 06:29 BUN/Creatinine Ratio 14.2 (10-20) 06/03/22 06:29 Glucose 83 mg/dl (70-99(Fasting)) 06/03/22 06:29 Calcium 9.2 mg/dl (8.5-10.1) 06/03/22 06:29 Magnesium 2.0 mg/dl (1.7-2.4) 06/02/22 06:56 Total Bilirubin 0.6 mg/dl (0.2-1.0) 06/02/22 06:56 AST 15 U/L (13-39) 06/02/22 06:56 ALT 15 U/L (7-52) 06/02/22 06:56 Alkaline Phosphatase 44 U/L (34-104) 06/02/22 06:56 Ammonia Cancelled 05/31/22 15:35 Troponin I High Sens 5.0 pg/ml (0-20) 05/31/22 22:19 Total Protein 5.9 gm/dl (6.0-8.3) L 06/02/22 06:56 Albumin 3.7 gm/dl (3.4-5.0) 06/02/22 06:56 Globulin 2.2 gm/dl (2.5-4.0) L 06/02/22 06:56 Albumin/Globulin Ratio 1.7 (0.9-2) 06/02/22 06:56 Triglycerides 637 mg/dl (0-150) H 06/01/22 06:01 Cholesterol 283 mg/dl (0-200) H 06/01/22 06:01 LDL Cholesterol Direct 132 mg/dl 06/01/22 08:24 LDL Cholesterol, Calc TNP 06/01/22 06:01 VLDL Cholesterol, Calc TNP 06/01/22 06:01 HDL Cholesterol 35 mg/dl 06/01/22 08:24 Cholesterol/HDL Ratio 8.1 (0-5) H 06/01/22 06:01 TSH 0.046 uIu/ml (0.300-4.500) L 06/01/22 10:58 Free T4 1.00 ng/dl (0.61-1.60) 06/01/22 10:58 Urine Opiates Screen Neg (Neg) 05/31/22 19:25 Ur Methadone, Qual Neg (Neg) 05/31/22 19:25 Urine Barbiturates Neg (Neg) 05/31/22 19:25 Valproic Acid 128 mcg/ml (50-100) H 06/01/22 10:58 Ur Phencyclidine (PCP) Neg (Neg) 05/31/22 19:25 U Amphetamin/Meth Scrn Neg (Neg) 05/31/22 19:25 MDMA (Ecstasy) Screen Neg (Neg) 05/31/22 19:25 U Benzodiazepines Scrn Neg (Neg) 05/31/22 19:25 Ur Cocaine Metabolite Neg (Neg) 05/31/22 19:25 U Marijuana (THC) Screen Neg (Neg) 05/31/22 19:25 Lyme Disease IgG Ab Cancelled 05/31/22 02:50 Lyme Disease IgM Ab Cancelled 05/31/22 02:50 SARS-CoV-2, RNA, NAAT NEGATIVE (NEGATIVE) 05/31/22 05:10 Impressions Chest X-Ray 05/31/22 03:17 XR chest 1V portable CLINICAL HISTORY: chest pain. COMPARISON STUDY: 02/27/2022 TECHNIQUE: 1 view of the chest FINDINGS: Single frontal view of the chest demonstrates the cardiomediastinal silhouette to be within normal limits. A loop recorder is in place. The lungs are clear of alveolar opacities. There is no evidence for pleural effusion. There is no evidence for vascular congestion. There is no acute osseous pathology. IMPRESSION: 1. No acute cardiopulmonary disease. ACT 112: Negative or not required by law. Electronically signed by: Froylan Boss M.D. 05/31/2022 7:[address] 05/31/22 21:36 CT head/brain wo con CLINICAL HISTORY: Headache, drowsiness Technique: Contiguous axial CT images of the head were acquired from the base of the skull to the vertex without intravenous contrast administration. Images were viewed in brain, subdural and bone windows. Automated dose lowering techniques and/or adjustment according to patient size were utilized for this exam. Comparison: Comparison is made to CT head 05/31/2022 Findings: The ventricles, basal cisterns, and cerebral sulci are normal. There is no acute intracranial hemorrhage or evidence of acute territorial infarction. Neither mass effect, shift of the midline structures, nor abnormal extra-axial fluid collections are shown. Garrett cisterna magna is incidentally noted. Sinus disease is noted in the right maxillary sinus, as well as thickening in the ethmoid and sphenoid sinuses. The orbits appear normal. There are no acute fractures of the calvaria or scalp swelling. Impression: 1. No acute intracranial hemorrhage, no evidence of acute territorial infarction or other acute intracranial disease process. 2. Sinus disease. ACT 112: Negative or not required by law. Electronically signed by: David Ramirez M.D. 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 Admitted for 2 syncopal episodes in the past 24 hours accompanied by chest discomfort, headaches, and dizziness. Syncope -h/o orthostatic hypotension (suggested from prior tilt table testing)/frequent falls/syncope, this time syncopal events accompanied by chest pain, headaches and dizziness -EKG normal sinus -Chest XR neg -Echo (02/23): unremarkable -Head CT x2: no acute bleed -trops normal -Held home meds which may potentially be contributing to symptoms: Alfuzosin, cyclobenzaprine, duloxetine, and meclizine -on discharge will continue all EXCEPT meclizine, patient states he has received no benefit since beginning this medication -Cardiology consulted -no dysrhythmia on tele or loop recorder (interrogated by [employer]) even when patient activated events -consider trial of Florinef for orthostasis -f/u cardiology, pcp outpatient Lethargy, improved -initially progressively becoming more somnolent/sleepy -was on BiPaP in hospital while sleeping which he said did seem to help -ammonia level unable to run due to blood being lipemic -lyme neg -urine tox negative -no concern of adrenal crisis -no MRI performed given interval improvement; also has had recent MRI -neuro consulted -rechecked valproic acid level, elevated 128; cont. decreased depakote to 1000mg BID -Continue to follow with Dr. Ordonez and our advanced practice clinicians in neurology clinic for ongoing management. -Continue Vimpat at current dosage. -Continue to monitor for possible concussive symptoms.May need additional outpatient physical therapy to address any lingering concussive symptomatology. -f/u neurology, pcp outpatient Retrocerebellar Cyst -large retrocerebellar arachnoid cyst with associated mass-effect on the cerebellum, no effacement of 4th ventricle or hydrocephalus, no brainstem compression -outpatient neurosurgical evaluation of the patient's large retrocerebellar arachnoid cyst; referred to [place] neurogsurg Sleep Disturbance -Consider up-to-date sleep medicine evaluation including polysomnography and MSLT. (Could patient be experiencing cataplectic attacks?) -was on BiPaP in hospital while sleeping -referred to sleep medicine HLD -TGs 637, Cholesterol 283, LDL 132, HDL 35 -started atorvastatin 10mg qam in hospital, recommend continuing in outpatient setting -consider dose increase, f/u pcp CAD -Cath (Jul 2021): 50% stenosis in small ramus intermedius -trops neg Panhypopituitarism -Panhypopituitarism/hypothyroidism/hypogonadism/diabetes insipidus/growth hormone deficiency -Continue hydrocortisone, levothyroxine, somatotropin injection and testosterone pump. Seizure disorder, pseudoseizure disorder -Continue divalproex as above, gabapentin, and Vimpat Pituitary hypothyroidism -Continue levothyroxine Pituitary hypogonadism -Continue somatotropin Pituitary diabetes insipidus -Continue desmopressin Depression -restart home duloxetine Idiopathic polyneuropathy -Continue gabapentin, duloxetine Secondary adrenal insufficiency -Continue home dose hydrocortisone -no indication for stress dosing during stay (2) Orthostatic hypotension: (3) Panhypopituitarism: (4) Pseudoseizures: (5) Pituitary hypothyroidism: (6) Pituitary hypogonadism: (7) Pituitary diabetes insipidus: (8) Depression: (9) Idiopathic polyneuropathy: (10) Seizure disorder: Total Time Total Time Spent Total Time Spent (In Minutes): 30 Discharge Plan Discharge Items Patient Disposition: Home - Self-Care Reason For Visit: ORTHOSTATIC HYPOTENSION, FREQUENT FALLS Discharge Diagnosis: Syncope Activity: Per Instructions section Non-emergency contact: Primary Care Provider, [facility] and Neurologist Call non-emergency contact if: you have any medication questions and your symptoms worsen Follow-up/Referrals: Deuce Puente PA-C [Physician Kerrick Kleaner Operator] - 06/10/22 3:00 pm Ricardo Monroy MD [Physician] - (sleep study, evaluate for narcolepsy, possible polysomnography and MSLT, consider cataleptic attacks) Burke Isaac DO [Physician] - 06/11/22 9:20 am Tahira Watt PA-C [Physician Kerrick Kleaner Operator] - 06/09/22 9:00 am Bernard Grigsby [Consulting Physician] - (large retrocerebellar arachnoid cyst in setting of syncope) Diet: Heart Healthy Addtl Attending Provider Instructions: You were admitted to the hospital for two syncopal events with associated chest pains, lethargy, fatigue. Head CT in the hospital did not show any acute bleeding. You are evaluated by our predatory animal trapper and neurologist you follow-up with the outpatient setting. From a cardiology standpoint your heart did not seem to be the cause of your falls. [employer] came into the hospital to test out your loop recorder and did not find any electrical abnormalities to explain her falls even when you had pressed the button manually. You should continue to f/u with cardiology in the outpatient setting. Neurology could not ascertain a specific etiology causing her falls however did have some recommendations. We repeated a valproic acid level since you are on Depakote for seizures. The level did seem to be elevated which prompted us to reduce your dose back to 1000 mg BID. Other recommendations provided to us from neurology are as follows: -Should consider an outpatient neurosurgical evaluation to further evaluate your large retrocerebellar arachnoid cyst found on previous imaging. We have sent a referral out to a neurosurgeon at [place] should be in contact with you shortly. -We also recommend following up with sleep medicine to evaluate for multiple reasons including possible obstructive sleep apnea and the need for a CPAP when you sleep. They will also be able to assess for narcolepsy. There is also been a thought that you could be experiencing cataplectic attacks. -You should continue to follow with Dr. Ordonez in their practice for ongoing management. It seems like they had discussed with you a possible referral to [facility] for further evaluation as well. -As previously stated you should resume your Depakote at a new dose of 1000 mg BID. Continue your Vimpat dose as you were. -Lastly it is also possible that you may have experienced a concussion from your falls prior to arrival to the ED. Concussions can generally last 1 to 2 weeks and progressively improve. You can consider outpatient physical therapy to address any lingering postconcussive symptomatology. Aside from your syncope you were also found to have elevated triglycerides and cholesterol in hospital. He started you on a statin medication to control these levels in the hospital and we recommend you continue this medication in the outpatient setting. You can discuss this further and possible increase in dosage with your primary care provider. You are set up with home health who should be able to help you on a daily basis with any at home needs. Medications discontinued: -Meclizine New Medications: -Atorvastatin 10mg daily- prescription sent to your preferred pharmacy, [facility] Pending Studies at Discharge: No Stand-Alone Forms: My [facility], Smoking Cessation Medications and SD Order Prescriptions: New atorvastatin 10 mg Tablet 10 mg PO QAM 30 Days Qty: 30 0RF Continued (DME) blood pressure monitor Kit See Rx Instructions .Route Qty: 1 0RF Rx Instructions: HYPERTENSION (DME) blood sugar diagnostic Strip See Rx Instructions .Route Qty: 50 3RF Rx Instructions: twice daily (DME) lancets [OneTouch Delica Lancets] 33 gauge misc See Rx Instructions .Route Qty: 100 3RF Rx Instructions: twice daily fluticasone propionate [Flonase Allergy Relief] 50 mcg/actuation spray,suspension 1 spray intranasal HS PRN (Reason: allergy symptoms) Qty: 16 0RF Rx Instructions: administer into each nostril dutasteride [Avodart] 0.5 mg capsule 0.5 mg PO QAM Qty: 90 2RF alfuzosin 10 mg tablet extended release 24 hr 10 mg PO QAM Qty: 90 2RF Rx Instructions: TAKE THIS MED AFTER A MEAL desmopressin 0.2 mg tablet 0.2 mg PO BID Qty: 180 3RF cholecalciferol (vitamin D3) 50 mcg (2,000 unit) capsule 50 mcg PO DAILY Qty: 30 7RF Botox 200 unit recon soln See Rx Instructions IM .COMPLEX Qty: 1 3RF Rx Instructions: 155 UNITS IM IN THE FACE AND NECK MUSCLES EVERY 12 WEEKS PER MIGRAINE PROTOCOL ondansetron HCl 4 mg tablet 4 mg PO Q8H PRN (Reason: nausea and vomiting) Qty: 20 1RF lacosamide [Vimpat] 50 mg tablet See Rx Instructions .ROUTE .COMPLEX Qty: 90 5RF Rx Instructions: 1 tab po in AM and 2 tabs po in PM; insulin aspart U-100 [Novolog U-100 Insulin aspart] 100 unit/mL solution 1 sliding scale dose SUBCUT TID PRN (Reason: Hyperglycemia) Qty: 20 3RF metformin 1,000 mg tablet 1,000 mg PO BID Qty: 60 5RF Norditropin FlexPro 5 mg/1.5 mL (3.3 mg/mL) pen injector 0.3 mg SQ PM Qty: 3 11RF testosterone 20.25 mg/1.25 gram (1.62 %) gel in metered-dose pump 2 pump TOP PM Qty: 75 5RF Rx Instructions: apply 1 pump amount over max area of EACH upper arm and shoulder PDMP Queried ok to fill 7-7-22 DS cyclobenzaprine 10 mg tablet 10 mg PO BID PRN (Reason: muscle spasm) 30 Days Qty: 60 1RF divalproex [Depakote] 500 mg tablet,delayed release (DR/EC) See Rx Instructions .ROUTE .COMPLEX Rx Instructions: 1000mg po in AM and 1500mg in PM pantoprazole 40 mg tablet,delayed release (DR/EC) 40 mg PO QAM Qty: 90 3RF levothyroxine 200 mcg tablet 200 mcg PO DAILY Qty: 90 3RF cetirizine [Zyrtec] 10 mg tablet 10 mg PO BID Qty: 60 3RF lorazepam 0.5 mg tablet 1 mg PO HS Rx Instructions: from psychiatrist 09/04/21 multivitamin Tablet 1 tab PO QAM Nurtec ODT 75 mg tablet,disintegrating 75 mg PO DAILY PRN (Reason: Migraine Headache) hydrocortisone 10 mg tablet 20 mg PO QAM Rx Instructions: TAKE TWO TABLETS IN THE AM. MAY DOUBLE THE DOSE IN TIMES OF STRESS. hydrocortisone 10 mg tablet 10 mg PO QPM Rx Instructions: TAKE ONE TABLET IN THE PM. MAY DOUBLE THE DOSE IN TIMES OF STRESS. albuterol sulfate 90 mcg/actuation HFA aerosol inhaler 1 inh inhalation QID PRN (Reason: Shortness Of Breath Or Wheezing) gabapentin 400 mg capsule 400 mg PO TID acetaminophen 325 mg Tablet 650 mg PO Q6H PRN (Reason: pain) Qty: 30 0RF duloxetine 60 mg capsule,delayed release(DR/EC) 60 mg PO DAILY Qty: 30 0RF Discontinued meclizine 25 mg tablet 25 mg PO BID Qty: 180 1RF Discharge Orders: Discharge Order (Routine); Ordered 06/03/22 Ordered By: Omer Penny Admission Data Admit Date/Time: 06/02/22 20:17 Attending Provider: Emmy Verduzco Admit Provider: Krishna Ronquillo Primary Care Provider: Larry Amaral Other Providers: Krishna Ronquillo ; Glynn Sheth ; Prince Tapia Other Interventions: Discharge Summary Assessment (RN) Last Done: 06/03/22 14:57 Supervising Physician Co-Signing Physician Notes Patient seen and examined independently of PGY-2 Dr. Penny. Agree with history, exam findings, assessment and plan of care as outlined. In brief, Mr. Perez is a 51 year old male with hx of orthostatic hypotension, CAD, pseudoseizures, cazares-hypopituitary, secondary adrenal insufficiency, anxiety, mitral regurg, and depression admitted with syncope x 2 in 24 hours. Today, mother is at the bedside and patient reports that he feels ready to be discharged home. VS and nursing notes reviewed. Awake, alert during conversation. Labs and imaging reviewed. 1. Syncope. Recent episodes associated with chest pain, headaches, and dizziness. EKG unremarkable. Holding alfuzosin, cyclobenzaprine, duloxetine and meclizine that might be contributing. Cardiology consulted. Loop recorder interrogated--no events. Can follow up with sleep medicine for evaluation of cataplexy as an outpatient. 2. Lethargy. Neuro consulted. Does have an arachnoid cyst that is causing mass effect--as some point will need evaluation with neurosurgery to determine next steps/intervention. 3. Panhypopituitarism. Continue home hydrocortisone, levothyroxine, somatropin injection and testosterone, desmopressin 4. Seizure disorder. Continue home gabapentin, vimpat. Decreased valproate dose given his slightly elevated level. 5. Generalized weakness. Unclear etiology. Would like him to try to work with PT so see what his functional status is. Not sure there is much from a hospital standpoint to do right now for this. 6. Rectal bleeding. Small amount. Suspect a small hemorrhoidal bleed. Has not recurred. Dispo: discharge home today with home health. I personally spent 30 minutes discharge planning for this patient. Resident Activity Tracking Resident Involvement: Resident Care Provided Care Provided: Adult Hospital Medicine
== END 2022-06-03 15:15 | disposition home or self-care (01) | DRG 312 ==
LOC: 1E 02:46 → ED 02:46 → SUATTDRO 05:00 → 1E 07:03 → 2S 10:36

== ENCOUNTER 2022-12-06 09:38 | Observation (INO) ==
--- NOTE | 2022-11-29 11:22 | Anesthesiology Consultation ---
Date of Service November 29, 2022 Assessment & Plan (1) Encounter for pre-operative examination: Chart Review Chart Review: Pending: Refer to Additional Notes / Consult section (pending response from neurology and endocrinology, routine heart failure routine appt ) and Patient NOT seen in Pre Admission Testing - Did write workload notes to neurology and endocrinology re: optimization for surgery- awaiting endo response; awaiting Depakote level and response per neuro recommendations (pt getting Depakote level checked 11/30/22 at [facility]) - Awaiting Heart Failure Clinic office note- pt scheduled 11/30/22 (Discussed case with Dr. Ortiz - will await responses from neuro and endocrinology re: surgery- if felt optimized- pt can proceed) - Check BSG AM DOS -Recheck CBC with diff (due to previous leukocytosis) and PRP (due to elevated creat) DOS - Will leave to anesthesiologist discretion DOS if repeat EKG needed Per neuro response regarding upcoming surgery 11/29/22= "I think he should be fine for surgery from a neurologic standpoint. I would, however, check a trough Depakote level this week. let me know the results and I will make any necessary adjustments." -COVID screening: Per PAT nursing assessment on 11/29/22. No known COVID-19 positive contacts or current COVID-19 related symptoms. Travel screen negative. Patient is NOT vaccinated for Covid. At surgeon discretion if preop Covid testing being done. Seen by endocrinology 11/11/22= Patient with major problems with drop attacks and seizures. Seen by cardiology May 2022no cardiac cause of the drop attacks discovered. These events appear real and that he can and has injured himself. Events also appear to be different from his grand mal seizureswhich can cause major injurybroke his femur in September 2022 during seizure. Resulted in hospitalization at [facility] and [facility]. Diabetes insipidusdelays DDAVP 1 time per week or sonotes about a 4-hour differential between onset of polyuria and onset of thirst. Has managed to maintain normal sodium through the events of 2021. Growth hormone deficiencyno symptoms of overtreatment. Hypogonadotrophic hypogonadismon transdermal testosterone. Central hypothyroidismon levothyroxine.Essentially stable. ACTH insufficiencyusual doses 20-10 mgoccasionally uses less/occasionally more. Patient does outstanding job adjusting with fine gradations to different degrees of stress including significant emotional stress. Patient last seen by neurosurgery 06/28/2022 = patient seen for follow-up on cerebellar arachnoid cyst. Also diagnosed with a spinal lipomatosis and is undergoing evaluations with Dr. Mccabe. History of pituitary tumor status post surgeries in [address] performed in May of this year to the earliest brain imaging we have- Cerebellar arachnoid cyst with minimal mass- effect. Calvarial scalloping that would indicate the cyst has been there for many years. Brain MRI from February of this year reviewedno mass lesions visible. In summarypatient with benign cerebellar cyst. At this point patient can follow-up on as-needed basis. Patient seen by neurology 06/23/22 = patient has longstanding history of seizure disorder fairly well controlled although does have occasional breakthrough seizures. Has been having episodes of syncope and collapse which are likely cardiovascular and not epilepsy. Would be very unusual to have sudden tonic seizures in adult. Continue with Botox injectionshelps with headaches. Check Depakote level this week. Keep anticonvulsant medications the same for now but may increase Vimpat if needed. Patient following with cardiology. If continues to have syncopal episodes and cardiology is convinced that these are not vascular in originwould refer him to epileptologist at [place]. Last seen by cardiology 05/26/2022 = patient continues to experience syncope episodes. During episodesLoop recorder interrogation shows sinus rhythm with 100 bpm. Has not had any significant bradycardias, cardiac pauses or evidence of heart block. Did have 7 bradycardic episodesall on 05/14/2022 with heart rates ranging between 38-47 bpmall of which were asymptomatic. On 05/13/2022 had couple episodes of supraventricular tachycardia with rates in the 150s to 160sno syncope associated with this either. Patient also with dyspnea on exer tionhas been less active since syncope episodesdegree of deconditioning. Prior cath in July 2021 showed 50% ramus intermedius stenosiswe will schedule DSE. Discussed loop recorder interrogation todayhe does not have any evidence of arrhythmias contributing to syncopal episodes. Follow up in three months (DSE was negative for ischemia 06/24/22) History Surgery Operation Date: 12/06/22 13:00 Proposed Procedures p Transurethral Resection of Prostate, Transurethral Incision of Prostate - Elliot Mendoza, DO Height/Weight Height: 5 ft 10 in Weight: 104.326 kg Allergies Allergy/AdvReac Type Severity Reaction Status Date / Time Iodinated Contrast Media Allergy Intermediate face/eye Verified 11/29/22 10:13 swelling Quinolones Allergy Intermediate HIVES Verified 11/29/22 10:13 Medications Home Medications Medication Instructions Recorded Confirmed Last Taken cyclobenzaprine 10 mg tablet 10 mg PO BID PRN muscle spasm 30 09/18/20 11/29/22 12/30/21 days #60 tabs albuterol sulfate 90 mcg/actuation 1 inh inhalation QID PRN Shortness 07/28/21 11/29/22 12/30/21 aerosol inhaler Of Breath Or Wheezing gabapentin 400 mg capsule See Rx Instructions .Route .COMPLEX 08/11/21 11/29/22 11/09/22 08:00 rimegepant 75 mg disintegrating 75 mg PO DAILY PRN Migraine 08/20/21 11/29/22 12/30/21 tablet (Nurtec ODT) Headache lorazepam 0.5 mg tablet 1 mg PO HS sleep 09/04/21 11/29/22 11/08/22 fluticasone propionate 50 1 spray intranasal HS PRN allergy 10/23/21 11/29/22 12/30/21 mcg/actuation nasal symptoms #16 grams spray,suspension (Flonase Allergy Relief) onabotulinumtoxinA 200 unit See Rx Instructions IM .COMPLEX #1 12/25/21 11/29/22 01/25/22 solution for injection (Botox) ea acetaminophen 325 mg tablet 650 mg PO Q6H PRN pain #30 tabs 03/01/22 11/29/22 Unknown insulin aspart U-100 100 unit/mL 1 sliding scale dose subcut TID 03/16/22 11/29/22 Unknown subcutaneous solution (Novolog PRN Hyperglycemia #20 mL U-100 Insulin aspart) testosterone 20.25 mg/1.25 gram 2 pump topical PM #75 grams 05/27/22 11/29/22 11/08/22 (1.62 %) transdermal gel pump lithium carbonate 300 mg tablet 300 mg PO AMHS 06/04/22 11/29/22 11/09/22 08:00 somatropin 5 mg/1.5 mL (3.3 mg/mL) 0.3 mg (0.09 mL) subcut PM #3 mL 06/04/22 11/29/22 11/08/22 subcutaneous pen injector (Norditropin FlexPro) trazodone 100 mg tablet 100 mg PO HS 06/04/22 11/29/22 11/08/22 brexpiprazole 3 mg tablet (Rexulti) 3 mg PO QAM 06/23/22 11/29/22 11/09/22 celecoxib 200 mg capsule 200 mg PO DAILY PRN Pain 06/23/22 11/29/22 Unknown duloxetine 30 mg capsule,delayed 30 mg PO QDL 06/23/22 11/29/22 11/09/22 release mirtazapine 30 mg tablet 30 mg PO HS 06/23/22 11/29/22 11/08/22 alfuzosin 10 mg tablet,extended 10 mg PO QAM #90 tabs 08/05/22 11/29/22 11/09/22 release 24 hr dutasteride 0.5 mg capsule 0.5 mg PO QAM #90 caps 08/05/22 11/29/22 11/09/22 (Avodart) blood sugar diagnostic (OneTouch 08/06/22 11/11/22 Unknown Verio test strips) insulin glargine 100 unit/mL (3 10 unit (0.1 mL) subcut QPM #15 mL 08/06/22 11/29/22 11/08/22 mL) subcutaneous pen (Lantus Solostar U-100 Insulin) oxycodone 5 mg tablet 5 mg PO Q6H PRN pain #8 tabs 08/27/22 11/29/22 Unknown atorvastatin 10 mg tablet 10 mg PO QAM 90 days #90 tabs 09/02/22 11/29/22 11/09/22 Vimpat 50 mg tablet (lacosamide) See Rx Instructions .Route 09/03/22 11/29/22 11/09/22 08:00 .COMPLEX #90 tabs prednisone 5 mg tablet 5 mg PO DIRECTED 09/24/22 11/29/22 Unknown cholecalciferol (vitamin D3) 50 50 mcg PO QPM 11/09/22 11/29/22 11/08/22 mcg (2,000 unit) capsule divalproex 500 mg tablet,delayed 750 mg PO BID 11/09/22 11/29/22 11/09/22 08:00 release duloxetine 60 mg capsule,delayed 60 mg PO QDL 11/09/22 11/29/22 11/09/22 release levothyroxine 200 mcg tablet 200 mcg PO QAM 11/09/22 11/29/22 11/09/22 prazosin 5 mg capsule 5 mg PO HS 11/09/22 11/29/22 11/08/22 furosemide 40 mg tablet 40 mg PO QAM #90 tabs 11/18/22 11/29/22 Unknown lisinopril 5 mg tablet 5 mg PO QDL #90 tabs 11/18/22 11/29/22 Unknown meclizine 25 mg tablet 25 mg PO AMPM #180 tabs 11/18/22 11/29/22 Unknown metformin 1,000 mg tablet 1,000 mg PO AMPM #180 tabs 11/18/22 11/29/22 Unknown pantoprazole 40 mg tablet,delayed 40 mg PO QAM #90 tabs 11/18/22 11/29/22 Unknown release desmopressin 0.1 mg tablet 0.4 mg PO BID 90 days #360 tabs 11/19/22 11/29/22 Unknown propranolol 120 mg capsule,24 120 mg PO QPM #90 caps 11/19/22 11/29/22 Unknown hr,extended release hydrocortisone 10 mg tablet 20 mg PO BID 11/29/22 11/29/22 Unknown Past Medical History Medical History (Updated 11/29/22 @ 13:48 by Paula Guillory PAAlliC) Acute kidney injury September 2022 (s/p grand mal seizure) Bladder mass benign BPH with obstruction/lower urinary tract symptoms Depression DM type 2 (diabetes mellitus, type 2) Growth hormone deficiency History of COVID-19 10/2021 - fatigue; resolved. Hx of fracture of foot Sep 2022- right > cast present Insomnia Kidney stones HX Lower extremity edema Lumbar radiculopathy Lumbar spine pain Migraine without aura and without status migrainosus, not intractable Mitral valve regurgitation follows with Dr. Phillips Obstructive sleep apnea of adult cpap Pituitary diabetes insipidus Follows with endocrinology- on DDAVP Pituitary hypogonadism Follows with endocrinology- Pituitary hypothyroidism Follows with endocrinology- Pituitary neoplasm Dx'ed in 2001- s/p surgical resection and XRT Repeat surgery in 2015 secondary to tumor regrowth Presence of cardiac device Loop recorder > last checked summer 2021 Prostate mass benign Rectal bleeding still present Secondary adrenal insufficiency Seizure disorder last seizure grand mal and petite mal on Oct 01, 2022 > follows with Dr. Ordonez and goes to neurology at [facility], unsure of MD's name Sensorineural hearing loss of both ears SOB (shortness of breath) on exertion Syncope and collapse Reason for loop recorder No recent issues since bed bound from femur fracture in Sep 2022 per patient Tremor Past Family History Family History Grandmother (Paternal) Family history of diabetes mellitus Aunt Family history of diabetes mellitus Uncle Family history of diabetes mellitus Father Prostate cancer Heart disease Mother Cardiac disorder Grandmother (Maternal) Myocardial infarction Other Asthma Cancer Hypertension No family history of adverse response to anesthesia No family history of bleeding disorder Stroke Denies family history of Ovarian cancer Breast cancer Colorectal cancer Past Surgical History Surgical History (Updated 11/29/22 @ 10:28 by Siobhan Niño RN) History of bladder surgery remove mass History of brain surgery x2---2004 @ [facility] [place] [facility], 2015 @ [facility]--for brain tumors > caused epilepsy History of cardiac cath 07/2021 - no stents History of colonoscopy History of esophagogastroduodenoscopy (EGD) History of lithotripsy History of lumbar fusion [facility] Jul 2022 History of prostate surgery remove mass History of tooth extraction History of wisdom tooth extraction S/P epidural steroid injection Status post right foot surgery replaced 5th metatarsal--hardware in place Social History Smoking Status: Never smoker tobacco type: smokeless tobacco Do You Dip or Chew Tobacco: Yes (advised npo status) Hx Alcohol Use: Yes Alcohol type: beer alcohol intake frequency: holidays/special occasions only Hx Substance Use: No substance use type: does not use Lab Results Anesthesia Preop Results Results Anesthesia Widget: WBC 15.13 K/ul (4.8-10.8) H 11/09/22 Hgb 14.4 g/dl (14.0-18.0) 11/09/22 Hct 42.8 % (40.1-51.0) 11/09/22 Plt 225 K/uL (130-400) 11/09/22 Na 133 mmol/L (136-145) L 11/09/22 K 3.6 mmol/L (3.5-5.1) 11/09/22 Cl 90 mmol/L (98-107) L 11/09/22 CO2 31 mmol/L (21-32) 11/09/22 BUN 15 mg/dl (6-23) 11/09/22 Creat 1.66 mg/dl (0.6-1.4) H 11/09/22 Glucose Level 110 mg/dl (70-99(Fasting)) H 11/09/22 Urine Color Yellow 11/09/22 Urine Appearance Clear (Clear) 11/09/22 Urine pH 5.5 (4.5-7.5) 11/09/22 Urine Specific [place] 1.005 (1.000-1.030) 11/09/22 Urine Protein Negative (Negative) 11/09/22 Urine Glucose (UA) Negative (Negative) 11/09/22 Urine Ketones Negative (Negative) 11/09/22 Urine Blood Trace (Negative) H 11/09/22 Urine Nitrite Negative (Negative) 11/09/22 Urine Bilirubin Negative (Negative) 11/09/22 Urine Urobilinogen Negative (Negative) 11/09/22 Urine Leukocyte Esterase Negative (Negative) 11/09/22 Urine WBC (Auto) 1-5 /hpf (0-5) 11/09/22 Urine RBC (Auto) 0-4 /hpf (0-4) 11/09/22 Urine Hyaline Casts (Auto) 1-5 /lpf (0-5) 11/09/22 Urine Epithelial Cells (Auto) 0-5 /lpf (0-5) 11/09/22 Urine Bacteria (Auto) Negative (Negative) 11/09/22 Urine Yeast Not Reportable 10/04/22 Coronavirus OC43 (PCR) Not Detected (NotDetected) 11/09/22 Coronavirus HKU1 (PCR) Not Detected (NotDetected) 11/09/22 Coronavirus 229E (PCR) Not Detected (NotDetected) 11/09/22 COVID-19 PCR Not Detected (NotDetected) 11/09/22 Coronavirus NL63 (PCR) Not Detected (NotDetected) 11/09/22 Testing Laboratory Results Leukocytosis- pt in ER at time of labs with RSV - will repeat DOS Creatinine improved from 9.38 in 09/2022 Electrocardiogram Date: 11/09/22 Findings: + ST @ (114bpm ) Nonspecific T wave abnormality When compared to EKG from October 04, 2022ventricular rate has increased by 40 bpm, nonspecific T wave abnormality now evident in lateral leads per cardio (Pt in ER with RSV at time of EKG- will leave to anesthesiologist discretion DOS if repeat EKG needed) Chest X-Ray Date: 11/09/22 Findings: + NAD Echocardiogram Date: 10/20/22 EF: 65-70% LV Function: normal RWMA: + none Other Findings: no LVH Valvular Disease: + no significant valvular disease Stress Test Date: 06/24/22 Type: DSE Negative dobutamine stress echo and EKG for ischemia at 90% MPHR. Appropriate BP response. No arrhythmia. No chest pain reported. Following the procedure, patient had reported shaking/tremors, concerning for seizure-like activity. Cardio was notified and present to bedside immediately. Patient was conscious with palpable pulse, normal heart rate and normal oxygen saturation. Open his eyes with verbal stimuli. Answered questions and denied pain. Stated that he had a seizure disorder. Sent to the ER for evaluation in stable condition. Cardiac Catheterization Date: 08/13/21 Findings: + normal Codominant coronary system No obstructive coronary disease Normal intracardiac pressures No evidence of aortic stenosis Other Testing Loop recorder check 11/21/2022 = [employer] device. Normal battery parameters. [address] 10/04/22= No acute intracranial hemorrhage, no evidence of acute territorial infarction or other acute intracranial disease process. Tilt table test 04/14/2022 = by strict criteria this is a negative head up tilt table test with the patient did not have syncope (the clinical symptom is syncope). Dizziness and lightheadedness that correlated with marked decline in the BP raising the possibility of orthostatic intolerance of the neurocardiogenic variety. Patient symptoms are dominated by the decline in BP with a heart rate response to symptomatic hypotension was also lacking. Recommendation per primary team Brain MRI 02/24/22= No acute abnormalities are seen to explain headache. Stable negative foramen magnum. Postsurgical changes of pituitary resection are seen. Neck/head CTA 08/20/2021 = no evidence of hemorrhage, mass-effect or acute territorial ischemia involving angiographic phase technique. Unremarkable CT angiogram of the brain. Unremarkable CT angiogram of the neck.
[~2022-12-06 09:38] MED LIST changes: -ANDROGEL; -DDAVP/1; -EFFSR150; -HYD10; -LAMO200T35; -LEVO150T48; +LR 15ML/HR IV SCH; -LRT5; -QUET1TAB34; -RIZA10TA19; -TRAM-10; +ceFAZolin 2000MG 2,000 MG/15 ML SYR IV SCH
--- NOTE | 2022-12-06 10:12 | History & Physical Bridge Note ---
Date of Service December 06, 2022 History & Physical Bridge Note I have examined the patient, reviewed the History & Physical and in the interval since the performance of the History & Physical I have noted the following changes of clinical significance: no changes noted
[2022-12-06] MEDS ORDERED: fentaNYL citrate 100 MCG/2 ML VIAL ONE (10:34)
[2022-12-06] MEDS ORDERED: MIDAZOLAM HCL 1 MG/ML 2ML VIAL ONE (10:34)
[2022-12-06 10:36] LABS: Hematocrit (blood only) 47.2 % (40.1-51.0); Hemoglobin 16.3 g/dl (14.0-18.0); Mean Corpuscular Hemoglobin 29.7 pg (25.0-34.0); Mean Corpuscular Hgb Conc 34.5 g/dL (32.0-36.0); Mean Corpuscular Volume 86.1 fL (80.0-100.0); Mean Platelet Volume 8.9 fL (9.4-12.4); Platelet Count 303 K/uL (130-400); RDW Coefficient of Variation 15.5 % (11.5-14.5); RDW Standard Deviation 48.6 fL (36.4-46.3); Red Blood Count 5.48 M/uL (4.63-6.08)
[2022-12-06 11:02] LABS: BUN Creatinine Ratio 3.7 (10-20); Creatinine Clr Calc Pharmacy 64.4 ml/min; Est GFR (African American) 55.4 ml/min; Est GFR (Non-African American) 47.8 ml/min; Potassium 3.8 mmol/L (3.5-5.1)
[2022-12-06] MEDS ORDERED: fentaNYL citrate 100 MCG/2 ML VIAL IV PRN (11:03)
[2022-12-06] MEDS ORDERED: ePHEDrine sulfate 50 MG/ML AMP IV PRN (11:03)
[2022-12-06] MEDS ORDERED: PROMETHAZINE HCL 12.5 MG in SODIUM CHLORIDE 0.9% 50 ML IV PRN (11:03)
[2022-12-06] MEDS ORDERED: HYDROmorphone INJ 2 MG/ML SYR/VIAL IV PRN (11:03)
[2022-12-06] MEDS ORDERED: ONDANSETRON INJ 2 MG/ML 2 ML VIAL IV PRN ×2 (11:03→12:19)
[2022-12-06] MEDS ORDERED: ATROPINE SULFATE 0.1 MG/ML 10ML SYR IV PRN (11:03)
[2022-12-06 11:26] LABS: Basophils % (auto) 0.8 %; Eosinophils # (auto) 0.73 K/uL (0-0.50); Eosinophils % (auto) 5.8 %; Immature Granulocytes # (auto) 0.05 K/uL (0.00-0.02); Immature Granulocytes % (auto) 0.4 %; Monocytes # (auto) 0.67 K/uL (0.24-0.82); Monocytes % (auto) 5.3 %; Neutrophils # (auto) 4.75 K/uL (1.4-6.5); Neutrophils % (auto) 37.7 %; Polychromasia 1+; Smudge Cells Present
[2022-12-06] MEDS ORDERED: PHENAZOPYRIDINE HCL 200 MG TAB PO PRN (12:19)
[2022-12-06] MEDS ORDERED: CYCLOBENZAPRINE HCL 10 MG TAB PO PRN (12:24)
[2022-12-06] MEDS ORDERED: ALBUTEROL HFA 8 GM INHALER INH PRN (12:24)
[2022-12-06] MEDS ORDERED: LACOSAMIDE 50 MG TABLET PO SCH ×2 (12:30→21:00)
[2022-12-06] MEDS ORDERED: GABAPENTIN 400 MG CAP PO SCH (12:30)
[2022-12-06] MEDS ORDERED: PROPOFOL IV EMULSION 10 MG/ML 20 ML VIAL IV ONE (12:49)
[2022-12-06] MEDS ORDERED: DEXAMETHASONE SOD INJ 4 MG/ML VIAL ONE (12:49)
[2022-12-06] MEDS ORDERED: ONDANSETRON INJ 2 MG/ML 2 ML VIAL ONE (12:49)
[2022-12-06] MEDS ORDERED: LIDOCAINE 2% MPF LOCAL 5 ML VIAL INFIL ONE (12:49)
[2022-12-06] MEDS ORDERED: LABETALOL HCL IV 5 MG/ML 20ML IV ONE (13:03)
--- NOTE | 2022-12-06 13:08 | Operative Report ---
PG Post Operative Report Pre & Post Diagnosis Operation Date: 12/06/22 11:40 Pre-Op Diagnosis: Bladder Outlet Obstruction Post-Op Diagnosis: Bladder Outlet Obstruction I identified the patient and participated in the time-out.: Yes Procedure Operation Date: 12/06/22 11:40 Actual Procedures p Transurethral Resection of Prostate and extraction of prostate/bladder stones (Not Applicable) - Elliot Mendoza DO Surgeon Elliot Mendoza, II, DO Auto Rebuilder None Estimated Blood Loss 5 Findings Consistent with Post-Op Diagnosis High bladder neck with stones in bladder. Numerous prostatic stones. Specimens Prostate adenoma. Drains 22Fr Catheter [address] Anesthesia Type General Complications none Disposition Disposition: Recovery Room Indications Patient with obstruction due to prostate enlargement. Risks and benefits discussed at length. Description of Procedure Patient was consented and brought back to the operating room. Patient was placed under anesthesia in the supine position and moved to the dorsal lithotomy position. Patient was prepped and draped in the regular sterile fashion. A time out was completed. A 30degree Cystoscope was placed into the bladder and the entire bladder was examined. The UO's were identified as well as the bladder neck, trigone, dome, and the other important landmarks. The prostatic urethra and large lobes/adenoma was assessed and the veru and bladder neck identified and area/size was assessed. The resection scope was placed and the fine bipolar loop was selected. Starting at the 5 and 7 o'clock positions, a channel was created from bladder neck to the veru. This drastically improved the bladder neck and opened things considerably. The channel was further formed. Numerous bladder/prostatic stones were flushed clear. The Specimen was removed and sent for analysis. The resection bed and any bleeding areas were fulgurated/cauterized and the entire area inspected. All bleeding was controlled. The bladder was inspected a final time. The bladder was emptied and irrigated. All specimen and debris was removed. The scope was removed with the bladder partially full. A catheter was placed and balloon elevated. This was easily irrigated. The patient was cleaned, aroused from anesthesia, and transferred to the pacu in stable condition having tolerated the procedure well with no complications. I was present and participated in all aspects of the procedure. The patient will be monitored in the PACU until transferred. Will maintain catheter. Will monitor overnight with observation. Plan to remove catheter in approx 1 week in office. I attest to the content of the Intraoperative Record and any orders documented therein. Any exceptions are noted below.
[2022-12-06] MEDS ORDERED: LORazepam 2 MG/1 ML VIAL ONE (13:40)
[2022-12-06] MEDS ORDERED: LORazepam 2 MG/1 ML VIAL IV STA ×2 (14:06→14:15)
--- NOTE | 2022-12-06 15:26 | Anesthesiology Progress Note ---
Date of Service December 06, 2022 Anesthesia Post Procedure Vital Signs Vital Signs: Temp Pulse Resp BP BP Pulse Ox O2 Del Method 12/06/22 14:50 91 H 16 145/82 H 94 Room Air 12/06/22 14:35 89 16 126/84 94 Room Air 12/06/22 14:25 36.4 C L 90 16 135/88 94 Room Air 12/06/22 14:15 89 16 145/97 H 94 Room Air 12/06/22 14:05 88 18 142/85 H 97 Oxymask 12/06/22 13:55 86 19 153/97 H 98 Oxymask 12/06/22 13:45 84 19 179/95 H 97 Oxymask 12/06/22 13:35 88 20 164/118 H 95 Oxymask 12/06/22 13:25 83 20 162/101 H 94 Oxymask 12/06/22 13:18 36.2 C L 80 20 177/118 H 95 Oxymask 12/06/22 10:40 36.7 C 108 H 20 171/112 H 135/110 H 95 Room Air O2 Flow Rate 12/06/22 14:50 12/06/22 14:35 12/06/22 14:25 12/06/22 14:15 12/06/22 14:05 5 12/06/22 13:55 5 12/06/22 13:45 5 12/06/22 13:35 5 12/06/22 13:25 5 12/06/22 13:18 5 12/06/22 10:40 Pain Intensity Lower Back: Pain Intensity: 7 Transfer of Care Handoff Completed per policy Notes Mental Status: alert / awake / arousable Patient Amnestic to Procedure: Yes Nausea / Vomiting: adequately controlled Pain: adequately controlled Airway Patency, RR, SpO2: stable & adequate BP & HR: stable & adequate Hydration State: stable & adequate Anesthetic Complications: no major complications apparent Notes: patient had tonic-clonic seizure activity in pacu witnessed by RN. lasted 1-2 minutes, associated with oxygen saturation drop to the 70s. On my arrival, he did have what seemed to be a short post ictal period before again becoming lucid. he has an underlying and longstanding seizure disorder. he was given 0.5mg of IV lorazepam and had no further activity. feeling well and neurologically intact on pacu discharge.
[2022-12-06] MEDS: MoRPHine SULFATE 2 MG/ML CARP IV PRN ×2 (15:43→19:22)
[2022-12-06] MEDS: SODIUM CHLORIDE 0.9% 1000ML 1,000 ML IV SCH (15:44)
[2022-12-06 16:21] LABS: Basophils # (auto) 0.07 K/uL (0-0.2); Basophils % (auto) 0.8 %; Eosinophils # (auto) 0.11 K/uL (0-0.50); Eosinophils % (auto) 1.2 %; Hemoglobin 14.5 g/dl (14.0-18.0); Immature Granulocytes # (auto) 0.03 K/uL (0.00-0.02); Immature Granulocytes % (auto) 0.3 %; Lymphocytes # (auto) 1.55 K/uL (1.2-3.4); Lymphocytes % (auto) 16.8 %; Mean Corpuscular Hemoglobin 29.7 pg (25.0-34.0); Mean Corpuscular Hgb Conc 33.7 g/dL (32.0-36.0); Mean Corpuscular Volume 87.9 fL (80.0-100.0); Mean Platelet Volume 8.5 fL (9.4-12.4); Monocytes # (auto) 0.15 K/uL (0.24-0.82); Monocytes % (auto) 1.6 %; Neutrophils # (auto) 7.33 K/uL (1.4-6.5); Neutrophils % (auto) 79.3 %; Platelet Count 243 K/uL (130-400); RDW Coefficient of Variation 15.6 % (11.5-14.5); RDW Standard Deviation 50.5 fL (36.4-46.3); Red Blood Count 4.89 M/uL (4.63-6.08); White Blood Count 9.24 K/ul (4.8-10.8)
[2022-12-06] MEDS ORDERED: LORazepam 2 MG/1 ML VIAL IV PRN (16:33)
--- NOTE | 2022-12-06 16:44 | History & Physical Report ---
Date of Service December 06, 2022 Assessment & Plan (1) Seizures: Plan: 52-year-old male with an extensive past medical history including seizure disorder status post pituitary surgery x2 who developed postoperative seizures x2 status post TURP. Hospitalist group consulted for evaluation and management of multiple chronic illnesses * Will obtain Depakote level now. * Reached out to Dr. Ordonez. Will dose with 500 mg Depakote now. * Increase daily Depakote dose to 1000 twice daily. * He will need follow-up in approximately 2 weeks with neurology for Depakote trough levels. * Orders placed for seizure precautions * Additional order for Ativan as needed. * In discussion with patient, this breakthrough seizure activity has happened postoperatively in the past. * Will transfer patient to telemetry floor overnight for monitored bed. (2) Panhypopituitarism: Plan: * Continue multiple home medications as ordered. (3) S/P TURP (status post transurethral resection of prostate): Plan: * Deferred to urology. (4) DM type 2 (diabetes mellitus, type 2): Plan: * Hold home medications. * Insulin sliding scale coverage if needed Admission and Anticipated Discharge Date Admission Date: December 06, 2022 History of Present Illness Chief Complaint: Post-op Management, Seizures Primary Care Provider: Larry Amaral MD Patient is a 52-year-old male with a significant past medical history of BPH, depression, panhypopituitarism, ulcerative colitis, hyperlipidemia, CORINA, seizure disorder, diabetes, essential tremor, migraines, and recurrent syncope. Patient is status post neurosurgery for a pituitary tumor in 2001 and 2015. Unfortunately, since that time, the patient has been experiencing petit and grand mal seizures. His previous regime medications had His grand mal seizures that day, however he does report daily petit mals. Patient underwent TURP procedure today under general anesthesia. Unfortunately, in PACU, the patient was noted to have seizure-like activity which responded to low doses of Ativan. Hospitalist service was consulted for ongoing management of the patient's chronic conditions. Upon evaluation at bedside, the patient is awake, alert, and oriented. Patient provides extensive historical information. He reports that he has had increasing frequency of petit mall seizures since his Depakote has been decreased. Otherwise. He reports that he is not concerned with the breakthrough seizure postoperatively as this is happened during each of his surgical interventions. Currently, patient denies complaints of headaches, dizziness, lightheadedness, new blurry vision, chest pain, palpitations, shortness of breath, nausea, vomiting, or abdominal discomfort. Allergies Allergy/AdvReac Type Severity Reaction Status Date / Time Iodinated Contrast Media Allergy Intermediate face/eye Verified 12/06/22 10:30 swelling Quinolones Allergy Intermediate HIVES Verified 12/06/22 10:30 clindamycin Allergy Unknown Verified 12/06/22 10:30 Home Medications Medication Instructions Recorded Confirmed Type cyclobenzaprine 10 mg tablet 10 mg PO BID PRN muscle spasm 30 09/18/20 12/06/22 Rx days #60 tabs albuterol sulfate 90 mcg/actuation 1 inh inhalation QID PRN Shortness 07/28/21 12/06/22 History aerosol inhaler Of Breath Or Wheezing gabapentin 400 mg capsule See Rx Instructions .Route .COMPLEX 08/11/21 12/06/22 History rimegepant 75 mg disintegrating 75 mg PO DAILY PRN Migraine 08/20/21 12/06/22 History tablet (Nurtec ODT) Headache lorazepam 0.5 mg tablet 1 mg PO HS sleep 09/04/21 12/06/22 History fluticasone propionate 50 1 spray intranasal HS PRN allergy 10/23/21 12/06/22 Rx mcg/actuation nasal symptoms #16 grams spray,suspension (Flonase Allergy Relief) onabotulinumtoxinA 200 unit See Rx Instructions IM .COMPLEX #1 12/25/21 12/06/22 Rx solution for injection (Botox) ea acetaminophen 325 mg tablet 650 mg PO Q6H PRN pain #30 tabs 03/01/22 12/06/22 Rx testosterone 20.25 mg/1.25 gram 2 pump topical PM #75 grams 05/27/22 12/06/22 Rx (1.62 %) transdermal gel pump lithium carbonate 300 mg tablet 300 mg PO AMHS 06/04/22 12/06/22 History somatropin 5 mg/1.5 mL (3.3 mg/mL) 0.3 mg (0.09 mL) subcut PM #3 mL 06/04/22 12/06/22 Rx subcutaneous pen injector (Norditropin FlexPro) trazodone 100 mg tablet 100 mg PO HS 06/04/22 12/06/22 History brexpiprazole 3 mg tablet (Rexulti) 3 mg PO QAM 06/23/22 12/06/22 History celecoxib 200 mg capsule 200 mg PO DAILY PRN Pain 06/23/22 12/06/22 History duloxetine 30 mg capsule,delayed 30 mg PO QDL 06/23/22 12/06/22 History release mirtazapine 30 mg tablet (Remeron) 30 mg PO HS 06/23/22 12/06/22 History alfuzosin 10 mg tablet,extended 10 mg PO QAM #90 tabs 08/05/22 12/06/22 Rx release 24 hr dutasteride 0.5 mg capsule 0.5 mg PO QAM #90 caps 08/05/22 12/06/22 Rx (Avodart) blood sugar diagnostic (OneTouch 08/06/22 11/30/22 History Verio test strips) insulin glargine 100 unit/mL (3 10 unit (0.1 mL) subcut QPM #15 mL 08/06/22 12/06/22 Rx mL) subcutaneous pen (Lantus Solostar U-100 Insulin) oxycodone 5 mg tablet 5 mg PO Q6H PRN pain #8 tabs 08/27/22 12/06/22 Rx atorvastatin 10 mg tablet 10 mg PO QAM 90 days #90 tabs 09/02/22 12/06/22 Rx Vimpat 50 mg tablet (lacosamide) See Rx Instructions .Route 09/03/22 12/06/22 Rx .COMPLEX #90 tabs prednisone 5 mg tablet 5 mg PO DIRECTED 09/24/22 12/06/22 History cholecalciferol (vitamin D3) 50 50 mcg PO QPM 11/09/22 12/06/22 History mcg (2,000 unit) capsule duloxetine 60 mg capsule,delayed 60 mg PO QDL 11/09/22 12/06/22 History release levothyroxine 200 mcg tablet 200 mcg PO QAM 11/09/22 12/06/22 History prazosin 5 mg capsule (Minipress) 5 mg PO HS 11/09/22 12/06/22 History furosemide 40 mg tablet 40 mg PO QAM #90 tabs 11/18/22 12/06/22 Rx lisinopril 5 mg tablet 5 mg PO QDL #90 tabs 11/18/22 12/06/22 Rx meclizine 25 mg tablet 25 mg PO AMPM #180 tabs 11/18/22 12/06/22 Rx metformin 1,000 mg tablet 1,000 mg PO AMPM #180 tabs 11/18/22 12/06/22 Rx propranolol 120 mg capsule,24 120 mg PO QPM #90 caps 11/19/22 12/06/22 Rx hr,extended release hydrocortisone 10 mg tablet 20 mg PO BID 11/29/22 12/06/22 History cephalexin 500 mg capsule 500 mg PO BID 3 days #6 caps 12/06/22 12/06/22 Rx desmopressin 0.1 mg tablet (DDAVP) 0.4 mg PO BID 12/06/22 12/06/22 History oxybutynin chloride 5 mg tablet 5 mg PO Q8H PRN bladder spasms #20 12/06/22 12/06/22 Rx tabs oxycodone-acetaminophen 7.5 mg-325 1 tab PO Q8H PRN pain #7 tabs 12/06/22 12/06/22 Rx mg tablet (Percocet) pantoprazole 40 mg tablet,delayed 40 mg PO QAM 12/06/22 12/06/22 History release (Protonix) phenazopyridine 200 mg tablet 200 mg PO Q8H PRN pain #10 tabs 12/06/22 12/06/22 Rx (Pyridium) divalproex 500 mg tablet,delayed 1,000 mg PO BID 30 days #120 tabs 12/07/22 Rx release docusate sodium 100 mg capsule 100 mg PO BID #60 caps 12/07/22 Rx (Colace) Past Med/Surg History Medical History Acute kidney injury September 2022 (s/p grand mal seizure) Bladder mass benign BPH with obstruction/lower urinary tract symptoms Depression DM type 2 (diabetes mellitus, type 2) Growth hormone deficiency History of COVID-19 10/2021 - fatigue; resolved. Hx of fracture of foot Sep 2022- right > cast present Insomnia Kidney stones HX Lower extremity edema Lumbar radiculopathy Lumbar spine pain Migraine without aura and without status migrainosus, not intractable Mitral valve regurgitation follows with Dr. Phillips Obstructive sleep apnea of adult cpap Pituitary diabetes insipidus Follows with endocrinology- on DDAVP Pituitary hypogonadism Follows with endocrinology- Pituitary hypothyroidism Follows with endocrinology- Pituitary neoplasm Dx'ed in 2001- s/p surgical resection and XRT Repeat surgery in 2015 secondary to tumor regrowth Presence of cardiac device Loop recorder > last checked summer 2021 Prostate mass benign Rectal bleeding still present Secondary adrenal insufficiency Seizure disorder last seizure grand mal and petite mal on Oct 01, 2022 > follows with Dr. Ordonez and goes to neurology at [facility], unsure of MD's name Sensorineural hearing loss of both ears SOB (shortness of breath) on exertion Syncope and collapse Reason for loop recorder No recent issues since bed bound from femur fracture in Sep 2022 per patient Tremor Surgical History History of bladder surgery remove mass History of brain surgery x2---[place] @ [facility] [place] @ [facility]--for brain tumors > caused epilepsy History of cardiac cath 07/2021 - no stents History of colonoscopy History of esophagogastroduodenoscopy (EGD) History of lithotripsy History of lumbar fusion [facility] [place] 2022 History of prostate surgery remove mass History of tooth extraction History of wisdom tooth extraction S/P epidural steroid injection Status post right foot surgery replaced 5th metatarsal--hardware in place Family History Grandmother (Paternal) Family history of diabetes mellitus Aunt Family history of diabetes mellitus Uncle Family history of diabetes mellitus Father Prostate cancer Heart disease Mother Cardiac disorder Grandmother (Maternal) Myocardial infarction Other Asthma Cancer Hypertension No family history of adverse response to anesthesia No family history of bleeding disorder Stroke Denies family history of Ovarian cancer Breast cancer Colorectal cancer Social History Smoking Status: Never smoker Tobacco Type: Smokeless Tobacco (Dip or Chew) Second Hand Exposure: Yes; Hx Alcohol Use: No Hx Substance Use: No Preferred Language: Kiswahili Communication Ability: Effective Visual Impairment: No Limitations Hearing Ability: Normal Log Tumbler Required: No Beliefs That Will Affect Care: None marital status: Single Current Living Situation: Alone current occupational status: unemployed Feels Safe at Home: Yes Childhood Exposure to Second-Hand Smoke: Yes (parents smoked) Seatbelt Use: always Assistive Devices: Cane and Walker Review of Systems Review of Systems: A complete 10 point review of systems was reviewed with the patient with pertinent positives and negatives as per history of present illness. All else were negative. Physical Exam Physical Exam: VITAL SIGNS - Vital signs and nursing notes were reviewed. GENERAL - 52-year-old male appearing his stated age who is in no acute distress. Communicates well with provider and answers questions appropriately. HEAD - Normocephalic, Atraumatic. EYES - PERRL with EOMI bilaterally. Sclera anicteric. EARS - No deformities of external structures noted on gross examination bilaterally. NOSE - Midline and without cyanosis. No epistaxis or purulent drainage noted. MOUTH/OROPHARYNX - Without perioral cyanosis. Buccal mucosa pink and moist. NECK - Neck with FROM. Supple to palpation. No lymphadenopathy noted. No nuchal rigidity. LUNGS - Chest wall symmetric without accessory muscle use, intercostals retractions, or central cyanosis. Normal vesicular breath sounds CTA B/L. No wheezes, rales, or rhonchi appreciated. CARDIAC - RRR with S1/S2. No murmur, rubs, or gallops appreciated. ABDOMEN - Abdominal contour flat without pulsations or visible masses. BS normoactive all four quadrants. No tenderness, palpable masses, hepatosplenomegaly, or ascites noted. EXTREMITIES - No pretibial edema present. +3/5 radial and dorsalis pedis pulses palpated throughout. FROM with no tremors or fasciculations noted. +5/5 strength noted in UE/LE bilaterally. NEUROLOGIC - Cranial nerves II through XII grossly intact. Sensory intact to light touch throughout. Patient able to perform rapid alternating movements appropriately. PSYCH - A&Ox3 and cooperates fully with examiner. Pt is very pleasant and interacts well with examiner. Results & Data Results & Data ([facility]) Vital Signs (Past 12 Hours) Vital Signs Temp Pulse Pulse Resp BP BP Pulse Ox 12/06/22 16:26 36.7 C 87 16 153/97 H 93 12/06/22 15:56 36.6 C 90 14 143/84 H 94 12/06/22 15:15 36.9 C 14 130/78 94 12/06/22 14:50 91 H 16 145/82 H 94 12/06/22 14:35 89 16 126/84 94 12/06/22 14:25 36.4 C L 90 16 135/88 94 12/06/22 14:15 89 16 145/97 H 94 12/06/22 14:05 88 18 142/85 H 97 12/06/22 13:55 86 19 153/97 H 98 12/06/22 13:45 84 19 179/95 H 97 12/06/22 13:35 88 20 164/118 H 95 12/06/22 13:25 83 20 162/101 H 94 12/06/22 13:18 36.2 C L 80 20 177/118 H 95 12/06/22 10:40 36.7 C 108 H 20 171/112 H 135/110 H 95 O2 Del Method O2 Flow Rate 12/06/22 16:26 Room Air 12/06/22 15:56 Room Air 12/06/22 15:15 Room Air 12/06/22 14:50 Room Air 12/06/22 14:35 Room Air 12/06/22 14:25 Room Air 12/06/22 14:15 Room Air 12/06/22 14:05 Oxymask 5 12/06/22 13:55 Oxymask 5 12/06/22 13:45 Oxymask 5 12/06/22 13:35 Oxymask 5 12/06/22 13:25 Oxymask 5 12/06/22 13:18 Oxymask 5 12/06/22 10:40 Room Air Code Status & VTE Plan VTE Prophylaxis Plan VTE Prophylaxis will be ordered: Yes Supervising Physician Co-Signing Physician Notes I personally saw and examined the patient. I verified all tinoco points and agree with Fred Pritchett PA-C with the following exceptions and/or additions: 52 year old male POD#0 TURP. 2 seizures lasting for minutes each time post operatively. Received lorazepam 0.5mg IV in the PACU but had a seizure on the floor following this. O/E A&Ox3, HS1+2, RRR, no murmurs, Chest CTAB, Abdo SNT, no lateralizing extremity focal deficit, CN 2-> 12 intact A/P Seizures - prolactin and anti-seizure drug levels ordered. recently decreased Depakote dosing and having more seizures since then. Fred BUNN discussed with Dr Ordonez and will increase his Depakote as above to 1000mg PO BID. No need for repeat brain imaging since this is known condition. Suspect current seizures as a result of anesthesia and recently reduced Depakote. Agree with moving pt for close observation to PCU. Panhypopituitarism - recommend stress dose steroids perioperatively (would recommend this is started prior to surgery on subsequent surgeries), can like be weaned back to his usual or double dosing tomorrow depending on his BP. Follow up with endocrinology regarding recent undetectable free T4 levels. Continue current dose of levothyroxine for now. Continue desmopressin - Na level currently normal. PG Care Time/CCT Total # of Minutes Spent Total Time Spent with Patient: Total time spent is greater than 50% in coordination of care (as documented) at patient's floor/unit and/or counseling patient: Coding Level of Care Code 61502 INT INP/OBS CARE 3/75MIN Diagnoses Seizures R56.9 Panhypopituitarism E23.0 S/P TURP (status post transurethral resection of prostate) Z90.79 DM type 2 (diabetes mellitus, type 2) E11.9 Time Spent (min) 45
[2022-12-06] MEDS ORDERED: DIVALPROEX DELAY RELEASE 500 MG TAB PO ONE (17:03)
[2022-12-06] MEDS: oxyCODONE/ACETAMINOPHEN 5mg/325mg TAB PO PRN (17:03)
[2022-12-06] MEDS ORDERED: GLUCOSE 40% GEL 15 GM TUBE PO PRN (17:19)
[2022-12-06] MEDS ORDERED: GLUCAGON FOR INJ 1 MG VIAL SQ PRN (17:19)
[2022-12-06] MEDS ORDERED: GLUCOSE 10 TAB/TUBE PO PRN (17:19)
[2022-12-06] MEDS ORDERED: DEXTROSE 50% 50 ML SYRINGE IV PRN (17:19)
[2022-12-06] MEDS ORDERED: CARBOHYDRATES FOR HYPOGLYCEMIA PO PRN (17:19)
--- NOTE | 2022-12-06 17:31 | Billing Data ---
Date of Service December 06, 2022 Coding Level of Care Code INP/OBS CONSULT LVL 5, 80 MIN
[2022-12-06 17:38] LABS: Albumin Globulin Ratio 1.8 (0.9-2); Albumin Level 4.4 gm/dl (3.4-5.0); BUN Creatinine Ratio 4.5 (10-20); Bilirubin,Total 0.5 mg/dl (0.2-1.0); Calcium 9.2 mg/dl (8.5-10.1); Est GFR (African American) 57.1 ml/min; Est GFR (Non-African American) 49.2 ml/min; Globulin 2.4 gm/dl (2.5-4.0); Total Protein 6.8 gm/dl (6.0-8.3)
[2022-12-06 17:42] LABS: Lithium < 0.1 mmol/L (0.6-1.2); Valproic Acid < 10 mcg/ml (50-100)
[2022-12-06] MEDS: HYDROCORTISONE SOD 50 MG in SYRINGE 0 ML IV SCH (19:44)
[2022-12-06] MEDS: ceFAZolin 2000MG 2,000 MG/15 ML SYR IV SCH (20:31)
[2022-12-06] MEDS: INSULIN ASPART PER UNIT SC SCH (20:32)
[2022-12-06] MEDS: DOCUSATE SODIUM 100 MG CAP PO SCH (20:34)
[2022-12-06] MEDS: DESMOPRESSIN ACETATE 0.1 MG TAB PO SCH (20:35)
[2022-12-06] MEDS: MECLIZINE HCL 25 MG TAB PO SCH (20:35)
[2022-12-06] MEDS: LITHIUM CARBONATE 300 MG TAB PO SCH (20:35)
[2022-12-06] MEDS ORDERED: traZODone HCL 100 MG TAB PO SCH (21:00)
[2022-12-06] MEDS ORDERED: PROPRANOLOL HCL 60 MG LA CAP PO SCH (21:00)
[2022-12-06] MEDS ORDERED: LORazepam 1 MG TAB PO SCH (21:00)
[2022-12-06] MEDS ORDERED: MIRTAZAPINE TAB 15 MG TAB PO SCH (21:00)
[2022-12-06] MEDS ORDERED: GABAPENTIN 800 MG TAB PO SCH (21:00)
[2022-12-06] MEDS ORDERED: HYDROCORTISONE 10 MG TAB PO SCH ×2 (21:00)
[2022-12-06] MEDS ORDERED: DIVALPROEX DELAY RELEASE 250 MG TABEC PO SCH (21:00)
[2022-12-06] MEDS ORDERED: PRAZOSIN HCL 1 MG CAP PO SCH (21:00)
[2022-12-07] MEDS: [UNRECOGNIZED DRUG - REMARK] SCH ×2 (00:27→07:39)
[2022-12-07] MEDS ORDERED: PHARMACY GLYCEMIC MGMT CONSULT PRN (02:24)
[2022-12-07] MEDS: oxyCODONE/ACETAMINOPHEN 5mg/325mg TAB PO PRN ×2 (03:01→07:36)
[2022-12-07] MEDS: HYDROCORTISONE SOD 50 MG in SYRINGE 0 ML IV SCH ×2 (03:10→11:46)
[2022-12-07] MEDS: ceFAZolin 2000MG 2,000 MG/15 ML SYR IV SCH ×2 (03:35→11:58)
[2022-12-07] MEDS: SODIUM CHLORIDE 0.9% 1000ML 1,000 ML IV SCH (05:08)
[2022-12-07] MEDS ORDERED: LEVOTHYROXINE SODIUM 200 MCG TABLET PO SCH (06:30)
[2022-12-07] MEDS: INSULIN ASPART PER UNIT SC SCH ×2 (07:37→11:50)
--- NOTE | 2022-12-07 08:23 | Progress Note ---
Date of Service December 07, 2022 Assessment & Plan (1) Seizures: Plan: 52-year-old male with an extensive past medical history including seizure disorder status post pituitary surgery x2 who developed postoperative seizures x2 status post TURP. Hospitalist group consulted for evaluation and management of multiple chronic illnesses * Reached out to Dr. Ordonez. Will dose with 500 mg Depakote now (12/06). * Increase daily Depakote dose to 1000 twice daily moving forward. * He will need follow-up in approximately 2 weeks with neurology for Depakote trough levels. * Depakote level <10 mcg/mL on labs yesterday. * Continue with seizure precautions. * Additional order for Ativan as needed. * In discussion with patient, this breakthrough seizure activity has happened postoperatively in the past. * Patient has had no further seizure activity. * Continue with outpatient dosing of Depakote 1000 mg BID until he is seen by neurology in the next few weeks. * From a medicine standpoint, he is stable for discharge to home at the discretion of his surgical team. (2) Panhypopituitarism: Plan: * Continue multiple home medications as ordered. (3) S/P TURP (status post transurethral resection of prostate): Plan: * Deferred to urology. (4) DM type 2 (diabetes mellitus, type 2): Plan: * Hold home medications. * Insulin sliding scale coverage if needed Admission and Anticipated Discharge Date Admission Date: December 06, 2022 Subjective Patient was seen and evaluated at bedside today. No reported seizure activity throughout the night. He offers no complaints today. Review of Systems Review of Systems: A complete 10 point review of systems was reviewed with the patient with pertinent positives and negatives as per history of present illness. All else were negative. Physical Exam Physical Exam: VITAL SIGNS - Vital signs and nursing notes were reviewed. GENERAL - 52-year-old male appearing his stated age who is in no acute distress. Communicates well with provider and answers questions appropriately. HEAD - Normocephalic, Atraumatic. EYES - PERRL with EOMI bilaterally. Sclera anicteric. LUNGS - Chest wall symmetric without accessory muscle use, intercostals retractions, or central cyanosis. Normal vesicular breath sounds CTA B/L. No wheezes, rales, or rhonchi appreciated. CARDIAC - RRR with S1/S2. No murmur, rubs, or gallops appreciated. ABDOMEN - Abdominal contour flat without pulsations or visible masses. BS normoactive all four quadrants. No tenderness, palpable masses, hepatosplenomegaly, or ascites noted. EXTREMITIES - No pretibial edema present. +3/5 radial and dorsalis pedis pulses palpated throughout. NEUROLOGIC - Cranial nerves II through XII grossly intact. PSYCH - A&Ox3 and cooperates fully with examiner. Pt is very pleasant and in teracts well with examiner. Results & Data ([facility]) Vital Signs (Past 12 Hours) Vital Signs Temp Pulse Pulse Resp BP Pulse Ox O2 Del Method 12/07/22 07:30 36.6 C 79 20 126/84 96 Room Air 12/07/22 02:47 36.6 C 87 18 138/86 95 Room Air 12/06/22 23:22 108 H 12/06/22 23:05 36.6 C 97 H 18 148/88 H 97 Room Air PG Care Time/CCT Total # of Minutes Spent Total Time Spent with Patient: Total time spent is greater than 50% in coordination of care (as documented) at patient's floor/unit and/or counseling patient: Coding Level of Care Code 91571 SUB INP/OBS CARE 3/50MIN Diagnoses Seizures R56.9 Panhypopituitarism E23.0 S/P TURP (status post transurethral resection of prostate) Z90.79 DM type 2 (diabetes mellitus, type 2) E11.9 Time Spent (min) 32
--- NOTE | 2022-12-07 08:34 | Urology Progress Note ---
Date of Service December 07, 2022 Assessment & Plan (1) BPH with obstruction/lower urinary tract symptoms: (2) S/P TURP (status post transurethral resection of prostate): Plan: - Pt POD#1 s/p TURP with Dr. Mendoza. - Patient admitted postoperatively due to seizure activity in PACU. - Medicine service consulted for management - appreciate recommendations. - Doing well, progressing as expected. No seizure activity overnight. - Afebrile, WBC 13.45, creatinine pending. - Tolerating PO diet. - 3 way Welsh catheter intact, patent and draining clear urine with CBI on slow. - CBI clamped @0810 - will reassess later this AM and discontinue when appropriate. - Maintain Welsh catheter. - Anticipate home with Welsh catheter later today presuming urine appropriate and he continues to progress as expected. - Expected clinical course reviewed, all questions answered. - Discussed with medicine service and patient stable for discharge from their perspective. - Will arrange outpatient follow-up with our service for voiding trial and post op appointment. - Patient reassessed at 0915 - urine remains clear with CBI clamped. Patient is ready for discharge now. Orders placed. Admission and Anticipated Discharge Date Admission Date: December 06, 2022 Subjective Patient seen and examined at bedside this morning. He is awake and resting in bed. No acute issues overnight. Notes mild irritation from Welsh catheter.. Welsh intact and draining clear yellow urine with CBI running slow. CBI clamped at 810. No nausea or vomiting. No fever or chills. Review of Systems Constitutional: as per Subjective / HPI Gastrointestinal: as per Subjective / HPI Genitourinary: + as per Subjective / HPI Physical Exam Constitutional: well developed and well nourished; no acute distress Respiratory: normal respiratory effort; no respiratory distress and no labored breathing Cardiovascular: Extremities: no pedal edema Gastrointestinal (Abdomen): Inspection/Auscultation: abdomen normal to inspection; abdomen not distended Musculoskeletal: Head/Neck/Chest: normocephalic and head atraumatic Neurologic: moves all extremities and awake Psychiatric: Orientation: alert and oriented x 3 Genitourinary: Welsh intact and draining clear urine with CBI on slow. CBI clamped at 810. Results & Data ([facility]) Vital Signs (Past 12 Hours) Vital Signs Temp Pulse Pulse Resp BP Pulse Ox O2 Del Method 12/07/22 07:30 36.6 C 79 20 126/84 96 Room Air 12/07/22 02:47 36.6 C 87 18 138/86 95 Room Air 12/06/22 23:22 108 H 12/06/22 23:05 36.6 C 97 H 18 148/88 H 97 Room Air PG Care Time/CCT Total # of Minutes Spent Total Time Spent with Patient: Total time spent is greater than 50% in coordination of care (as documented) at patient's floor/unit and/or counseling patient: Coding Level of Care Code None Diagnoses BPH with obstruction/lower urinary tract symptoms N40.1; N13.8 S/P TURP (status post transurethral resection of prostate) Z90.79
[2022-12-07] MEDS: GABAPENTIN 400 MG CAP PO SCH ×2 (08:39→13:25)
[2022-12-07] MEDS: DOCUSATE SODIUM 100 MG CAP PO SCH (08:39)
[2022-12-07] MEDS: DESMOPRESSIN ACETATE 0.1 MG TAB PO SCH (08:39)
[2022-12-07] MEDS: MECLIZINE HCL 25 MG TAB PO SCH (08:40)
[2022-12-07] MEDS: LITHIUM CARBONATE 300 MG TAB PO SCH (08:40)
[2022-12-07] MEDS ORDERED: FUROSEMIDE 40 MG TAB PO SCH (09:00)
[2022-12-07] MEDS ORDERED: ALFUZOSIN HCL 10 MG TAB PO SCH (09:00)
[2022-12-07] MEDS ORDERED: predniSONE 20 MG TAB PO SCH (09:00)
[2022-12-07] MEDS ORDERED: DIVALPROEX DELAY RELEASE 500 MG TAB PO SCH (09:00)
[2022-12-07] MEDS ORDERED: HYDROCORTISONE 10 MG TAB PO SCH (09:00)
[2022-12-07] MEDS ORDERED: PANTOprazole 40 MG TAB PO SCH (09:00)
[2022-12-07] MEDS ORDERED: NovoLIN-N (NPH) PER UNIT CHARGE SQ ONE (09:00)
[2022-12-07] MEDS ORDERED: LACOSAMIDE 50 MG TABLET PO SCH (09:00)
[2022-12-07 09:03] LABS: Basophils # (auto) 0.02 K/uL (0-0.2); Basophils % (auto) 0.1 %; Hematocrit (blood only) 40.1 % (40.1-51.0); Hemoglobin 13.7 g/dl (14.0-18.0); Immature Granulocytes # (auto) 0.15 K/uL (0.00-0.02); Immature Granulocytes % (auto) 1.1 %; Lymphocytes # (auto) 1.63 K/uL (1.2-3.4); Lymphocytes % (auto) 12.1 %; Mean Corpuscular Hemoglobin 29.5 pg (25.0-34.0); Mean Corpuscular Hgb Conc 34.2 g/dL (32.0-36.0); Mean Corpuscular Volume 86.4 fL (80.0-100.0); Mean Platelet Volume 8.6 fL (9.4-12.4); Monocytes # (auto) 0.18 K/uL (0.24-0.82); Monocytes % (auto) 1.3 %; Neutrophils # (auto) 11.47 K/uL (1.4-6.5); Neutrophils % (auto) 85.4 %; Platelet Count 247 K/uL (130-400); RDW Standard Deviation 47.4 fL (36.4-46.3); Red Blood Count 4.64 M/uL (4.63-6.08); White Blood Count 13.45 K/ul (4.8-10.8)
[2022-12-07 09:27] LABS: BUN Creatinine Ratio 6.8 (10-20); Calcium 8.7 mg/dl (8.5-10.1); Creatinine Clr Calc Pharmacy 64.4 ml/min; Est GFR (African American) 55.4 ml/min; Est GFR (Non-African American) 47.8 ml/min; Potassium 5.3 mmol/L (3.5-5.1)
--- NOTE | 2022-12-07 09:39 | Discharge Summary ---
Date of Service December 07, 2022 Admission HPI Per Admitting Provider Patient with BPH with lower urinary tract symptoms here for TURP. Admission Exam Per Admitting Provider General: Alert in no acute distress. HEENT: Normocephalic Atraumatic. Inspection normal. Psychologic: Normal affect. Respiratory: Nonlabored. Cardiovascular: No tachycardia Skin: [place] and Dry. Principal Diagnosis BPH with obstruction/lower urinary tract symptoms Discharge Exam Constitutional well developed and well nourished; no acute distress Respiratory normal respiratory effort; no respiratory distress and no labored breathing Cardiovascular Extremities: no pedal edema Gastrointestinal (Abdomen) Inspection/Auscultation: abdomen normal to inspection; abdomen not distended Musculoskeletal Head/Neck/Chest: normocephalic and head atraumatic Neurologic moves all extremities and awake Psychiatric Orientation: alert and oriented x 3 Genitourinary Welsh patent and draining clear urine with CBI on slow. CBI clamped. On reassessment later in am, urine remained clear with CBI clamped. Discharge Data Allergies Allergy/AdvReac Type Severity Reaction Status Date / Time Iodinated Contrast Media Allergy Intermediate face/eye Verified 12/06/22 10:30 swelling Quinolones Allergy Intermediate HIVES Verified 12/06/22 10:30 clindamycin Allergy Unknown Verified 12/06/22 10:30 Consultations 12/06/22 12:19 Consult Hospitalist Routine Procedures Performed Operation Date: 12/06/22 11:40 Actual Procedures p Transurethral Resection of Prostate, Transurethral Incision of Prostate(Not Applicable) - Elliot Mendoza, DO Hospital Course (1) BPH with obstruction/lower urinary tract symptoms: (2) S/P TURP (status post transurethral resection of prostate): - Pt POD#1 s/p TURP with Dr. Mendoza. - Patient admitted postoperatively due to seizure activity in PACU. - Medicine service consulted for management - appreciate recommendations. - Doing well, progressing as expected. No seizure activity overnight. - Afebrile, WBC 13.45, creatinine pending. - Tolerating PO diet. - 3 way Welsh catheter intact, patent and draining clear urine with CBI on slow. - CBI clamped @0810 - will reassess later this AM and discontinue when appropriate. - Maintain Welsh catheter. - Anticipate home with Welsh catheter later today presuming urine appropriate and he continues to progress as expected. - Expected clinical course reviewed, all questions answered. - Discussed with medicine service and patient stable for discharge from their perspective. - Will arrange outpatient follow-up with our service for voiding trial and post op appointment. - Patient reassessed at 0915 - urine remains clear with CBI clamped. Patient is ready for discharge now. Orders placed. Total Time Total Time Spent Total Time Spent (In Minutes): 29 Discharge Plan Discharge Items Patient Disposition: Home - Self-Care Reason For Visit: Benign Prostatic Hyperplasia with Obstruction Discharge Diagnosis: Same Activity: Resume your previous activity Lifting: No more than 25 pounds Bathing Comment: Okay to shower to discharge, no tub bath or soaking. Sexual Activity: Wait until after follow-up appointment Exercise/Sports: Wait until after follow-up appointment Driving/Machine Use: No driving while taking prescription pain medication Non-emergency contact: Surgeon and Neurologist Call non-emergency contact if: you have any medication questions, your symptoms worsen, your pain is not controlled, your pain is worsening, your pain is unusual for you, your pain is concerning for you, you have a fever and your temperature is above 101.5 Follow-up/Referrals: Larry Amaral MD [Primary Care Provider] - 12/20/22 11:00 am (Will see SADI Chanel) Elliot Mendoza DO [Physician] - 12/21/22 12:00 pm (Phone call visit between 12-4 pm) [facility],Nurse [FAKE FOR SCHEDULES] - 12/13/22 10:30 am Diet: Carb Consistent or DM2 Addtl Attending Provider Instructions: May have blood in urine. May have discomfort. Call if any fevers or chills. Home with catheter. Catheter care instructions per nursing. Office will call to set followup. Please take all medications as prescribed and keep all follow-ups as scheduled. Please call our office at [phone] with any questions, concerns or need to reschedule appointments for any reason. We are happy to assist you. Tips for your recovery at home: Dont be alarmed by brownish or reddish blood or clots in your urine. This is a result of the procedure. This may occur off and on for weeks to months after the procedure but should continue to improve. Drink plenty of fluids during the day (enough to keep your urine very light colored). This will help keep a healthy flow of urine. Do not lift >25 lbs until your followup Avoid constipation. Please use a stool softener (Colace) for the first two weeks after your procedure Be sure to finish the antibiotics as prescribed. If you go home with a catheter, please wash tubing where it enters your body twice daily with mild soap (Dove or Dial). Once your catheter is removed, expect some blood in your urine and some burning when you urinate. You should have an appointment to have this removed, if you do not please call our office to arrange. Please note that your Depakote dose has been increased to 1,000 mg PO twice daily. You will need to follow-up with your neurology team in the next 2 weeks for Depakote level. Pending Studies at Discharge: No Stand-Alone Forms: My [facility] Medications and DC Order Prescriptions: New phenazopyridine [Pyridium] 200 mg tablet 200 mg PO Q8H PRN (Reason: pain) Qty: 10 0RF cephalexin 500 mg capsule 500 mg PO BID 3 Days Qty: 6 0RF oxybutynin chloride 5 mg tablet 5 mg PO Q8H PRN (Reason: bladder spasms) Qty: 20 0RF oxycodone-acetaminophen [Percocet] 7.5-325 mg tablet 1 tab PO Q8H PRN (Reason: pain) Qty: 7 0RF docusate sodium [Colace] 100 mg capsule 100 mg PO BID Qty: 60 0RF Rx Instructions: Take twice daily for 2 weeks, then as needed for constipation. divalproex 500 mg Tablet,Delayed Release (Dr/Ec) 1,000 mg PO BID 30 Days Qty: 120 0RF Continued fluticasone propionate [Flonase Allergy Relief] 50 mcg/actuation spray,suspension 1 spray intranasal HS PRN (Reason: allergy symptoms) Qty: 16 0RF Rx Instructions: administer into each nostril Botox 200 unit recon soln See Rx Instructions IM .COMPLEX Qty: 1 3RF Rx Instructions: 155 UNITS IM IN THE FACE AND NECK MUSCLES EVERY 12 WEEKS PER MIGRAINE PROTOCOL testosterone 20.25 mg/1.25 gram (1.62 %) gel in metered-dose pump 2 pump TOP PM Qty: 75 5RF Rx Instructions: apply 1 pump amount over max area of EACH upper arm and shoulder PDMP Queried ok to fill 05-27-22 DS lithium carbonate 300 mg tablet 300 mg PO AMHS trazodone 100 mg tablet 100 mg PO HS Norditropin FlexPro 5 mg/1.5 mL (3.3 mg/mL) pen injector 0.3 mg SQ PM Qty: 3 11RF dutasteride [Avodart] 0.5 mg capsule 0.5 mg PO QAM Qty: 90 3RF alfuzosin 10 mg tablet extended release 24 hr 10 mg PO QAM Qty: 90 3RF Rx Instructions: TAKE THIS MED AFTER A MEAL insulin glargine [Lantus Solostar U-100 Insulin] 100 unit/mL (3 mL) insulin pen 10 unit subcut QPM Qty: 15 3RF atorvastatin 10 mg tablet 10 mg PO QAM 90 Days Qty: 90 0RF lacosamide [Vimpat] 50 mg tablet See Rx Instructions .ROUTE .COMPLEX Qty: 90 5RF Rx Instructions: 1 tab po in AM and 2 tabs po in PM; furosemide 40 mg tablet 40 mg PO QAM Qty: 90 3RF lisinopril 5 mg tablet 5 mg PO QDL Qty: 90 3RF meclizine 25 mg tablet 25 mg PO AMPM Qty: 180 3RF metformin 1,000 mg tablet 1,000 mg PO AMPM Qty: 180 3RF propranolol 120 mg capsule,extended release 24 hr 120 mg PO QPM Qty: 90 1RF cyclobenzaprine 10 mg tablet 10 mg PO BID PRN (Reason: muscle spasm) 30 Days Qty: 60 1RF prednisone 5 mg tablet 5 mg PO DIRECTED Rx Instructions: PER PT "ON AND OFF REGIMENT HE FOLLOWS". (DME) OneTouch Verio test strips Strip See Rx Instructions .Route Rx Instructions: Test blood sugar two times daily Rexulti 3 mg tablet 3 mg PO QAM duloxetine 30 mg capsule,delayed release(DR/EC) 30 mg PO QDL Rx Instructions: TOTAL DOSE 90 MG--TAKES WITH 60 MG CAP. mirtazapine [Remeron] 30 mg tablet 30 mg PO HS celecoxib 200 mg capsule 200 mg PO DAILY PRN (Reason: Pain) lorazepam 0.5 mg tablet 1 mg PO HS Rx Instructions[facility] tablet,disintegrating 75 mg PO DAILY PRN (Reason: Migraine Headache) oxycodone 5 mg tablet 5 mg PO Q6H PRN (Reason: pain) Qty: 8 0RF prazosin [Minipress] 5 mg capsule 5 mg PO HS levothyroxine 200 mcg tablet 200 mcg PO QAM duloxetine 60 mg capsule,delayed release(DR/EC) 60 mg PO QDL Rx Instructions: TOTAL DOSE 90 MG--TAKES WITH 30 MG CAP. cholecalciferol (vitamin D3) 50 mcg (2,000 unit) capsule 50 mcg PO QPM albuterol sulfate 90 mcg/actuation HFA aerosol inhaler 1 inh inhalation QID PRN (Reason: Shortness Of Breath Or Wheezing) gabapentin 400 mg capsule See Rx Instructions .ROUTE .COMPLEX Rx Instructions: 400 mg orally; TAKES 400 MG QAM AND AFTERNOON, THEN 800 MG HS. acetaminophen 325 mg Tablet 650 mg PO Q6H PRN (Reason: pain) Qty: 30 0RF hydrocortisone 10 mg tablet 20 mg PO BID Rx Instructions: TAKE TWO TABLETS IN THE AM AND 1 TABLET IN THE PM. MAY DOUBLE THE DOSE IN TIMES OF STRESS. pantoprazole [Protonix] 40 mg tablet,delayed release (DR/EC) 40 mg PO QAM desmopressin [DDAVP] 0.1 mg tablet 0.4 mg PO BID Discontinued divalproex [Depakote] 500 mg tablet,delayed release (DR/EC) 750 mg PO BID Discharge Orders: Discharge Order (Routine); Ordered 12/06/22 Ordered By: Elliot Mendoza Admission Data Admit Date/Time: 12/06/22 12:19 Attending Provider: Elliot Mendoza Admit Provider: Elliot Mendoza Primary Care Provider: Larry Amaral Other Providers: Krishna Ronquillo ; Radha Lennon ; Trenton Owens ; Deshaun Pacheco ; Talha Willingham ; James Esqueda ; Galindo Funes ; Taylor Langley ; Angelika Krause ; Fred Pritchett ; José Luis Jackson Elizabeth M ; Osman Isaac ; Ta Suarez ; Donna Poon ; Gali Mcdaniels ; Nayeli Rojas ; Bernard Farrell ; Louie Sanchez ; Princess Neely ; Radha Kaplan ; Emmy Verduzco ; Timothy Jones ; Trenton Carney ; Judith Feldman ; Vernon Caal ; Reginald Tesfaye ; Jenny Verde ; Franklyn Peraza ; Jennifer Magaña ; Taye Shafer ; Betsy Butler ; Homar Cook ; Owen Browning ; Stas Bartlett ; Benito Carty Other Interventions: Discharge Summary Assessment (RN) Last Done: 12/07/22 11:18 Coding Level of Care Code HOSP INP/OBS DISCH 30 MIN/LESS Diagnoses BPH with obstruction/lower urinary tract symptoms N40.1; N13.8 S/P TURP (status post transurethral resection of prostate) Z90.79 Time Spent (min) 29
[2022-12-07] MEDS ORDERED: DULoxetine HCL 30 MG CAP PO SCH (11:30)
[2022-12-07] MEDS ORDERED: DULoxetine HCL 60 MG CAP PO SCH (11:30)
== END 2022-12-07 14:15 | disposition home or self-care (01) ==
LOC: ASU 09:38 → 3N 09:38 → 2S 16:27

== ENCOUNTER 2022-12-09 02:19 | Inpatient (IN) ==
--- NOTE | 2022-12-09 02:45 | Emergency Department Note ---
History of Present Illness General Chief complaint: Altered Mental Status Stated complaint: Fall, Head Injury, Vomiting Time Seen by Provider: 12/09/22 02:27 History of Present Illness 52-year-old male presents via EMS reportedly with alteration mental status and vomiting. Patient did admit to eating Ativan Jasvir. He reportedly vomited 1 time and hit his head. Family had a change in mental status. Patient is well-known to our department with a significant past medical history. EMS states that the patient had some alteration mental status according to the family. They had no further history available to them at the time. Patient does admit to wanting to go to sleep and he did take Ativan. There is no reported seizure activity. Home Medications Medication Instructions Recorded Confirmed Type cyclobenzaprine 10 mg tablet 10 mg PO BID PRN muscle spasm 30 09/18/20 12/09/22 Rx days #60 tabs albuterol sulfate 90 mcg/actuation 1 inh inhalation QID PRN Shortness 07/28/21 12/09/22 History aerosol inhaler Of Breath Or Wheezing gabapentin 400 mg capsule See Rx Instructions .Route .COMPLEX 08/11/21 12/09/22 History rimegepant 75 mg disintegrating 75 mg PO DAILY PRN Migraine 08/20/21 12/09/22 History tablet (Nurtec ODT) Headache lorazepam 0.5 mg tablet 1 mg PO HS sleep 09/04/21 12/09/22 History fluticasone propionate 50 1 spray intranasal HS PRN allergy 10/23/21 12/09/22 Rx mcg/actuation nasal symptoms #16 grams spray,suspension (Flonase Allergy Relief) onabotulinumtoxinA 200 unit See Rx Instructions IM .COMPLEX #1 12/25/21 12/09/22 Rx solution for injection (Botox) ea acetaminophen 325 mg tablet 650 mg PO Q6H PRN pain #30 tabs 03/01/22 12/09/22 Rx testosterone 20.25 mg/1.25 gram 2 pump topical PM #75 grams 05/27/22 12/09/22 Rx (1.62 %) transdermal gel pump lithium carbonate 300 mg tablet 300 mg PO AMHS 06/04/22 12/09/22 History somatropin 5 mg/1.5 mL (3.3 mg/mL) 0.3 mg (0.09 mL) subcut PM #3 mL 06/04/22 12/09/22 Rx subcutaneous pen injector (Norditropin FlexPro) trazodone 100 mg tablet 100 mg PO HS 06/04/22 12/09/22 History brexpiprazole 3 mg tablet (Rexulti) 3 mg PO QAM 06/23/22 12/09/22 History celecoxib 200 mg capsule 200 mg PO DAILY PRN Pain 06/23/22 12/09/22 History duloxetine 30 mg capsule,delayed 30 mg PO QDL 06/23/22 12/09/22 History release mirtazapine 30 mg tablet (Remeron) 30 mg PO HS 06/23/22 12/09/22 History alfuzosin 10 mg tablet,extended 10 mg PO QAM #90 tabs 08/05/22 12/09/22 Rx release 24 hr dutasteride 0.5 mg capsule 0.5 mg PO QAM #90 caps 08/05/22 12/09/22 Rx (Avodart) blood sugar diagnostic (OneTouch 08/06/22 12/08/22 History Verio test strips) insulin glargine 100 unit/mL (3 10 unit (0.1 mL) subcut QPM #15 mL 08/06/22 12/09/22 Rx mL) subcutaneous pen (Lantus Solostar U-100 Insulin) oxycodone 5 mg tablet 5 mg PO Q6H PRN pain #8 tabs 08/27/22 12/09/22 Rx atorvastatin 10 mg tablet 10 mg PO QAM 90 days #90 tabs 09/02/22 12/09/22 Rx Vimpat 50 mg tablet (lacosamide) See Rx Instructions .Route 09/03/22 12/09/22 Rx .COMPLEX #90 tabs prednisone 5 mg tablet 5 mg PO DIRECTED 09/24/22 12/09/22 History cholecalciferol (vitamin D3) 50 50 mcg PO QPM 11/09/22 12/09/22 History mcg (2,000 unit) capsule duloxetine 60 mg capsule,delayed 60 mg PO QDL 11/09/22 12/09/22 History release levothyroxine 200 mcg tablet 200 mcg PO QAM 11/09/22 12/09/22 History prazosin 5 mg capsule (Minipress) 5 mg PO HS 11/09/22 12/09/22 History furosemide 40 mg tablet 40 mg PO QAM #90 tabs 11/18/22 12/09/22 Rx lisinopril 5 mg tablet 5 mg PO QDL #90 tabs 11/18/22 12/09/22 Rx meclizine 25 mg tablet 25 mg PO AMPM #180 tabs 11/18/22 12/09/22 Rx metformin 1,000 mg tablet 1,000 mg PO AMPM #180 tabs 11/18/22 12/09/22 Rx propranolol 120 mg capsule,24 120 mg PO QPM #90 caps 11/19/22 12/09/22 Rx hr,extended release hydrocortisone 10 mg tablet 20 mg PO BID 11/29/22 12/09/22 History desmopressin 0.1 mg tablet (DDAVP) 0.4 mg PO BID 12/06/22 12/09/22 History oxybutynin chloride 5 mg tablet 5 mg PO Q8H PRN bladder spasms #20 12/06/22 12/09/22 Rx tabs oxycodone-acetaminophen 7.5 mg-325 1 tab PO Q8H PRN pain #7 tabs 12/06/22 12/09/22 Rx mg tablet (Percocet) pantoprazole 40 mg tablet,delayed 40 mg PO QAM 12/06/22 12/09/22 History release (Protonix) phenazopyridine 200 mg tablet 200 mg PO Q8H PRN pain #10 tabs 12/06/22 12/09/22 Rx (Pyridium) divalproex 500 mg tablet,delayed 1,000 mg PO BID 30 days #120 tabs 12/07/22 12/09/22 Rx release docusate sodium 100 mg capsule 100 mg PO BID #60 caps 12/07/22 12/09/22 Rx (Colace) Allergies Allergy/AdvReac Type Severity Reaction Status Date / Time clindamycin Allergy Intermediate SWELLING Verified 12/09/22 02:39 Iodinated Contrast Media Allergy Intermediate face/eye Verified 12/09/22 02:39 swelling Quinolones Allergy Intermediate HIVES Verified 12/09/22 02:39 Past Med/Surg History Medical History Acute kidney injury September 2022 (s/p grand mal seizure) Bladder mass benign BPH with obstruction/lower urinary tract symptoms Depression DM type 2 (diabetes mellitus, type 2) Growth hormone deficiency History of COVID-19 10/2021 - fatigue; resolved. Hx of fracture of foot Sep 2022- right > cast present Insomnia Kidney stones HX Lower extremity edema Lumbar radiculopathy Lumbar spine pain Migraine without aura and without status migrainosus, not intractable Mitral valve regurgitation follows with Dr. Phillips Obstructive sleep apnea of adult cpap Pituitary diabetes insipidus Follows with endocrinology- on DDAVP Pituitary hypogonadism Follows with endocrinology- Pituitary hypothyroidism Follows with endocrinology- Pituitary neoplasm Dx'ed in 2001- s/p surgical resection and XRT Repeat surgery in 2016 secondary to tumor regrowth Presence of cardiac device Loop recorder > last checked summer 2021 Prostate mass benign Rectal bleeding still present Secondary adrenal insufficiency Seizure disorder last seizure grand mal and petite mal on Oct 01, 2022 > follows with Dr. Ordonez and goes to neurology at [facility], unsure of MD's name Sensorineural hearing loss of both ears SOB (shortness of breath) on exertion Syncope and collapse Reason for loop recorder No recent issues since bed bound from femur fracture in Sep 2022 per patient Tremor Surgical History History of bladder surgery remove mass History of brain surgery x2---2004 @ [facility] [place], 2016 @ [facility]--for brain tumors > caused epilepsy History of cardiac cath 07/2021 - no stents History of colonoscopy History of esophagogastroduodenoscopy (EGD) History of lithotripsy History of lumbar fusion [facility] Jul 2022 History of prostate surgery remove mass History of tooth extraction History of wisdom tooth extraction S/P epidural steroid injection Status post right foot surgery replaced 5th metatarsal--hardware in place Family History Grandmother (Paternal) Family history of diabetes mellitus Aunt Family history of diabetes mellitus Uncle Family history of diabetes mellitus Father Prostate cancer Heart disease Mother Cardiac disorder Grandmother (Maternal) Myocardial infarction Other Asthma Cancer Hypertension No family history of adverse response to anesthesia No family history of bleeding disorder Stroke Denies family history of Ovarian cancer Breast cancer Colorectal cancer Social History Smoking Status: Unknown if ever smoked Tobacco Type: Smokeless Tobacco (Dip or Chew) Second Hand Exposure: Yes; Hx Alcohol Use: No Hx Substance Use: No Preferred Language: Uzbek Communication Ability: Effective Visual Impairment: No Limitations Hearing Ability: Normal Mathematical Technician Required: No Beliefs That Will Affect Care: None marital status: Single Current Living Situation: Alone current occupational status: unemployed Feels Safe at Home: Yes Childhood Exposure to Second-Hand Smoke: Yes (parents smoked) Seatbelt Use: always Assistive Devices: Special Shoe Review of Systems A total of 10 systems reviewed and were otherwise negative Gastrointestinal: + vomiting Physical Exam Vital Signs Vital Signs - 24 hr 12/09/22 02:33 12/09/22 03:16 12/09/22 03:17 Temperature 36.6 C Temperature Source Oral Pulse Rate 81 Pulse Rate [Apical] 77 Pulse Rhythm [Apical] Regular Pulse Strength [Apical] Normal Respiratory Rate 16 16 Respiratory Effort / Characteristics Non-Labored Spontaneous Non-Labored Spontaneous Respiratory Depth Normal Normal Respiratory Pattern Regular Blood Pressure 170/107 H Blood Pressure [Right Arm] 164/109 H Blood Pressure Mean 128 Blood Pressure Mean [Right Arm] 127 Blood Pressure Position [Right Arm] Semi-fowlers Pulse Oximetry 91 96 96 Oxygen Delivery Method Room Air Room Air Room Air Oxygen Flow Rate 0 Sepsis Recent Fever Within 48 Hours No Sepsis New/Unexplained Change in Mental Status N/A Sepsis Action Taken by Nursing No Action Required GENERAL: Patient is awake alert in no acute distress patient is resting comfortably and showing no signs of anxiety EYES: The conjunctivae are clear. The pupils are round and reactive at 8 mm bilaterally EARS, NOSE, MOUTH AND THROAT: The nose is without any evidence of any deformity. Mucous membranes are moist. Tongue is midline. NECK: The neck is nontender and supple. Nontender midline RESPIRATORY: Normal respiratory effort is noted there is no evidence of wheezing rhonchi or rales CARDIOVASCULAR: Regular rate and rhythm noted there no murmurs rubs or gallops normal S1 normal S2. GASTROINTESTINAL: The abdomen is soft. Abdomen is nontender. PELVIS: The Pelvis is stable. No tenderness to palpation is noted. BACK: No midline tenderness or or step-off noted range of motion in flexion extension as well as rotation no signs of muscle spasm noted MUSCULOSKELETAL/EXTREMITIES: There is no evidence of gross deformity full range of motion is noted in the hips and shoulders. SKIN: There is no obvious evidence of any rash. There are no petechiae, pallor or cyanosis noted. NEUROLOGIC: Patient is awake alert and oriented x3; at times slow to respond but does answer questions does open eyes and does converse with me Course Reevaluation(s) Reevaluation #1: Patient remains somnolent but arousable will follow commands and answer questions at times Time: 05:18 Consultations Consultation #1: [facility]oke with [facility] for [facility]. The patient is excepted for alteration in mental status Time: 05:00 Medical Decision Making Medical Records Attestation: I reviewed the patient's medical records. Home Medications Current Medication List: was personally reviewed by me Laboratory Data Attestation: I reviewed the patient's lab results. Patient has leukocytosis and a subtherapeutic valproic acid 12/09/22 02:30 12/09/22 02:30 Lab Results 12/09/22 12/09/22 12/09/22 Range/Units 02:30 02:30 02:30 WBC 14.01 H (4.8-10.8) K/ul RBC 4.37 L (4.63-6.08) M/uL Hgb 12.8 L (14.0-18.0) g/dl POC Hgb (14.0-18.0) g/dl Hct 38.1 L (40.1-51.0) % POC Hct (42-52) % MCV 87.2 (80.0-100.0) fL MCH 29.3 (25.0-34.0) pg MCHC 33.6 (32.0-36.0) g/dL RDW Std Deviation 48.8 H (36.4-46.3) fL RDW Coeff of Yanira 15.4 H (11.5-14.5) % Plt Count 241 (130-400) K/uL MPV 9.3 L (9.4-12.4) fL Immature Gran % (Auto) 1.0 % Neut % (Auto) 80.7 % Lymph % (Auto) 14.3 % Isabella % (Auto) 3.6 % Eos % (Auto) 0.1 % Baso % (Auto) 0.3 % Neut # (Auto) 11.32 H (1.4-6.5) K/uL Lymph # (Auto) 2.00 (1.2-3.4) K/uL Isabella # (Auto) 0.50 (0.24-0.82) K/uL Eos # (Auto) 0.01 (0-0.50) K/uL Baso # (Auto) 0.04 (0-0.2) K/uL Immature Gran # (Auto) 0.14 H (0.00-0.02) K/uL PT Cancelled INR Cancelled POC Sodium (135-144) mmol/L Sodium 134 L (136-145) mmol/L POC Potassium (3.3-5.0) mmol/L Potassium TNP POC Chloride (101-112) mmol/L Chloride 99 (98-107) mmol/L Carbon Dioxide 28 (21-32) mmol/L POC Total CO2 (24-31) mmol/L Anion Gap 7 (3-11) POC Anion Gap (16-25) mmol/L POC BUN (7-18) mg/dl BUN 12 (6-23) mg/dl Creatinine 1.10 D (0.6-1.4) mg/dl POC Creatinine (0.6-1.3) mg/dl Est Cr Clr Drug Dosing 95.6 ml/min Est GFR ( Amer) 87.7 ml/min Est GFR (Non-Af Amer) 75.7 ml/min BUN/Creatinine Ratio 10.9 (10-20) Glucose 130 H (70-99(Fasting)) mg/dl POC Glucose (other) (70-99) mg/dl Calcium 9.2 (8.5-10.1) mg/dl POC Ioniz Calcium Jeny (1.12-1.32) mmol/l Magnesium 1.7 (1.7-2.4) mg/dl Total Bilirubin 0.4 (0.2-1.0) mg/dl AST TNP ALT 27 (7-52) U/L Alkaline Phosphatase 54 (34-104) U/L Troponin I High Sens 4.1 (0-20) pg/ml Total Protein 6.8 (6.0-8.3) gm/dl Albumin 4.3 (3.4-5.0) gm/dl Globulin 2.5 (2.5-4.0) gm/dl Albumin/Globulin Ratio 1.7 (0.9-2) Urine Opiates Screen (Neg) Ur Methadone, Qual (Neg) Urine Barbiturates (Neg) Valproic Acid (50-100) mcg/ml Ur Phencyclidine (PCP) (Neg) U Amphetamin/Meth Scrn (Neg) MDMA (Ecstasy) Screen (Neg) U Benzodiazepines Scrn (Neg) Ur Cocaine Metabolite (Neg) U Marijuana (THC) Screen (Neg) Ethyl Alcohol mg/dL (<10.0) mg/dl SARS-CoV-2, RNA, NAAT (NEGATIVE) 12/09/22 12/09/22 12/09/22 Range/Units 02:34 03:56 03:56 WBC (4.8-10.8) K/ul RBC (4.63-6.08) M/uL Hgb (14.0-18.0) g/dl POC Hgb 13.9 L (14.0-18.0) g/dl Hct (40.1-51.0) % POC Hct 41 L (42-52) % MCV (80.0-100.0) fL MCH (25.0-34.0) pg MCHC (32.0-36.0) g/dL RDW Std Deviation (36.4-46.3) fL RDW Coeff of Yanira (11.5-14.5) % Plt Count (130-400) K/uL MPV (9.4-12.4) fL Immature Gran % (Auto) % Neut % (Auto) % Lymph % (Auto) % Isabella % (Auto) % Eos % (Auto) % Baso % (Auto) % Neut # (Auto) (1.4-6.5) K/uL Lymph # (Auto) (1.2-3.4) K/uL Isabella # (Auto) (0.24-0.82) K/uL Eos # (Auto) (0-0.50) K/uL Baso # (Auto) (0-0.2) K/uL Immature Gran # (Auto) (0.00-0.02) K/uL PT INR POC Sodium 135 (135-144) mmol/L Sodium (136-145) mmol/L POC Potassium 5.0 (3.3-5.0) mmol/L Potassium POC Chloride 99 L (101-112) mmol/L Chloride (98-107) mmol/L Carbon Dioxide (21-32) mmol/L POC Total CO2 29 (24-31) mmol/L Anion Gap (3-11) POC Anion Gap 13.0 L (16-25) mmol/L POC BUN 14 (7-18) mg/dl BUN (6-23) mg/dl Creatinine (0.6-1.4) mg/dl POC Creatinine 1.2 (0.6-1.3) mg/dl Est Cr Clr Drug Dosing ml/min Est GFR ( Amer) ml/min Est GFR (Non-Af Amer) ml/min BUN/Creatinine Ratio (10-20) Glucose (70-99(Fasting)) mg/dl POC Glucose (other) 134 H (70-99) mg/dl Calcium (8.5-10.1) mg/dl POC Ioniz Calcium Jeny 1.08 L (1.12-1.32) mmol/l Magnesium (1.7-2.4) mg/dl Total Bilirubin (0.2-1.0) mg/dl AST ALT (7-52) U/L Alkaline Phosphatase (34-104) U/L Troponin I High Sens (0-20) pg/ml Total Protein (6.0-8.3) gm/dl Albumin (3.4-5.0) gm/dl Globulin (2.5-4.0) gm/dl Albumin/Globulin Ratio (0.9-2) Urine Opiates Screen (Neg) Ur Methadone, Qual (Neg) Urine Barbiturates (Neg) Valproic Acid 27 L (50-100) mcg/ml Ur Phencyclidine (PCP) (Neg) U Amphetamin/Meth Scrn (Neg) MDMA (Ecstasy) Screen (Neg) U Benzodiazepines Scrn (Neg) Ur Cocaine Metabolite (Neg) U Marijuana (THC) Screen (Neg) Ethyl Alcohol mg/dL < 10.0 (<10.0) mg/dl SARS-CoV-2, RNA, NAAT (NEGATIVE) 12/09/22 12/09/22 12/09/22 Range/Units 03:56 03:56 04:18 WBC (4.8-10.8) K/ul RBC (4.63-6.08) M/uL Hgb (14.0-18.0) g/dl POC Hgb (14.0-18.0) g/dl Hct (40.1-51.0) % POC Hct (42-52) % MCV (80.0-100.0) fL MCH (25.0-34.0) pg MCHC (32.0-36.0) g/dL RDW Std Deviation (36.4-46.3) fL RDW Coeff of Yanira (11.5-14.5) % Plt Count (130-400) K/uL MPV (9.4-12.4) fL Immature Gran % (Auto) % Neut % (Auto) % Lymph % (Auto) % Isabella % (Auto) % Eos % (Auto) % Baso % (Auto) % Neut # (Auto) (1.4-6.5) K/uL Lymph # (Auto) (1.2-3.4) K/uL Isabella # (Auto) (0.24-0.82) K/uL Eos # (Auto) (0-0.50) K/uL Baso # (Auto) (0-0.2) K/uL Immature Gran # (Auto) (0.00-0.02) K/uL PT 10.9 INR 1.0 POC Sodium (135-144) mmol/L Sodium (136-145) mmol/L POC Potassium (3.3-5.0) mmol/L Potassium 4.1 D POC Chloride (101-112) mmol/L Chloride (98-107) mmol/L Carbon Dioxide (21-32) mmol/L POC Total CO2 (24-31) mmol/L Anion Gap (3-11) POC Anion Gap (16-25) mmol/L POC BUN (7-18) mg/dl BUN (6-23) mg/dl Creatinine (0.6-1.4) mg/dl POC Creatinine (0.6-1.3) mg/dl Est Cr Clr Drug Dosing ml/min Est GFR ( Amer) ml/min Est GFR (Non-Af Amer) ml/min BUN/Creatinine Ratio (10-20) Glucose (70-99(Fasting)) mg/dl POC Glucose (other) (70-99) mg/dl Calcium (8.5-10.1) mg/dl POC Ioniz Calcium Jeny (1.12-1.32) mmol/l Magnesium (1.7-2.4) mg/dl Total Bilirubin (0.2-1.0) mg/dl AST 19 ALT (7-52) U/L Alkaline Phosphatase (34-104) U/L Troponin I High Sens (0-20) pg/ml Total Protein (6.0-8.3) gm/dl Albumin (3.4-5.0) gm/dl Globulin (2.5-4.0) gm/dl Albumin/Globulin Ratio (0.9-2) Urine Opiates Screen Neg (Neg) Ur Methadone, Qual Neg (Neg) Urine Barbiturates Neg (Neg) Valproic Acid (50-100) mcg/ml Ur Phencyclidine (PCP) Neg (Neg) U Amphetamin/Meth Scrn Neg (Neg) MDMA (Ecstasy) Screen Neg (Neg) U Benzodiazepines Scrn Pos H (Neg) Ur Cocaine Metabolite Neg (Neg) U Marijuana (THC) Screen Neg (Neg) Ethyl Alcohol mg/dL (<10.0) mg/dl SARS-CoV-2, RNA, NAAT (NEGATIVE) 12/09/22 Range/Units 04:50 WBC (4.8-10.8) K/ul RBC (4.63-6.08) M/uL Hgb (14.0-18.0) g/dl POC Hgb (14.0-18.0) g/dl Hct (40.1-51.0) % POC Hct (42-52) % MCV (80.0-100.0) fL MCH (25.0-34.0) pg MCHC (32.0-36.0) g/dL RDW Std Deviation (36.4-46.3) fL RDW Coeff of Yanira (11.5-14.5) % Plt Count (130-400) K/uL MPV (9.4-12.4) fL Immature Gran % (Auto) % Neut % (Auto) % Lymph % (Auto) % Isabella % (Auto) % Eos % (Auto) % Baso % (Auto) % Neut # (Auto) (1.4-6.5) K/uL Lymph # (Auto) (1.2-3.4) K/uL Isabella # (Auto) (0.24-0.82) K/uL Eos # (Auto) (0-0.50) K/uL Baso # (Auto) (0-0.2) K/uL Immature Gran # (Auto) (0.00-0.02) K/uL PT INR POC Sodium (135-144) mmol/L Sodium (136-145) mmol/L POC Potassium (3.3-5.0) mmol/L Potassium POC Chloride (101-112) mmol/L Chloride (98-107) mmol/L Carbon Dioxide (21-32) mmol/L POC Total CO2 (24-31) mmol/L Anion Gap (3-11) POC Anion Gap (16-25) mmol/L POC BUN (7-18) mg/dl BUN (6-23) mg/dl Creatinine (0.6-1.4) mg/dl POC Creatinine (0.6-1.3) mg/dl Est Cr Clr Drug Dosing ml/min Est GFR ( Amer) ml/min Est GFR (Non-Af Amer) ml/min BUN/Creatinine Ratio (10-20) Glucose (70-99(Fasting)) mg/dl POC Glucose (other) (70-99) mg/dl Calcium (8.5-10.1) mg/dl POC Ioniz Calcium Jeny (1.12-1.32) mmol/l Magnesium (1.7-2.4) mg/dl Total Bilirubin (0.2-1.0) mg/dl AST ALT (7-52) U/L Alkaline Phosphatase (34-104) U/L Troponin I High Sens (0-20) pg/ml Total Protein (6.0-8.3) gm/dl Albumin (3.4-5.0) gm/dl Globulin (2.5-4.0) gm/dl Albumin/Globulin Ratio (0.9-2) Urine Opiates Screen (Neg) Ur Methadone, Qual (Neg) Urine Barbiturates (Neg) Valproic Acid (50-100) mcg/ml Ur Phencyclidine (PCP) (Neg) U Amphetamin/Meth Scrn (Neg) MDMA (Ecstasy) Screen (Neg) U Benzodiazepines Scrn (Neg) Ur Cocaine Metabolite (Neg) U Marijuana (THC) Screen (Neg) Ethyl Alcohol mg/dL (<10.0) mg/dl SARS-CoV-2, RNA, NAAT NEGATIVE (NEGATIVE) Imaging Data Attestation: I personally reviewed and interpreted this imaging study as follows: My Impression: Chest x-ray interpreted by me poor inspiratory effort slight increased markings bilaterally no obvious effusion mild cardiomegaly Radiologist's Impression: * Patient: LINSEY VIRAMONTES JR (Male) : 66 Status: ER Date: 12/09/22 03:17 Room #: History: AMS Slices: 106 Priors: Tech: Timo Mireles @ [phone] Exams: CT HEAD Contrast: Accession Numbers: [id number] Referring Physician: ISABEL ARMENTA Preliminary Findings Only See Final Report For Complete Findings CT HEAD: Prior exam: none Findings: The ventricular system is midline and nondilated. The sulcal pattern is normal for the patient's age. There is no bleed, mass, extra axial fluid collection or mass effect. There is a 4.9 x 3.5 cm right retrocerebellar arachnoid cyst with mild scalloping of the inner table of the skull. The visualized paranasal sinuses are well aerated. The visualized mastoid air cell are well aerated. There is no skull fracture or concerning bone lesion. Impression No evidence of acute intracranial pathology. Right retrocerebellar arachnoid cyst is presumably an incidental finding. Radiologist: Homar Daly MD5:31 AM10 days left ECG Data Attestation: I personally reviewed and interpreted this ECG as follows: Additional Comments: EKG interpreted by me normal sinus rhythm rate of 63 normal intervals normal axis no obvious ST segment elevation or depression MDM Narrative Medical decision making differential diagnosis includes seizure, closed head injury, metabolic derangement, benzo overdose, dehydration, acute renal failure. Plan is to check labs, EKG, CT Nursing notes were reviewed and appreciated EMS notes and presentation at bedside are noted and appreciated External medical records from this patient's multitude of emergency department and admission notes are reviewed and appreciated Patient is an alteration mental status likely due to benzodiazepines There is no seizure activity Patient has extensive medical history Case was discussed with the hospitalist for admission Impression & Plan Acute alteration in mental status, Benzodiazepine overdose, Leukocytosis Discharge Plan Visit Data Chief Complaint: Altered Mental Status Stated Complaint: Fall, Head Injury, Vomiting ED Provider: Isabel Armenta Discharge Problem: Acute alteration in mental status, Benzodiazepine overdose, Leukocytosis Patient Disposition: Admitted As Inpatient Forms Stand Alone Forms: My [facility] Prescriptions Prescriptions: No Action fluticasone propionate [Flonase Allergy Relief] 50 mcg/actuation sp ray,suspension 1 spray intranasal HS PRN (Reason: allergy symptoms) Qty: 16 0RF Rx Instructions: administer into each nostril Botox 200 unit recon soln See Rx Instructions IM .COMPLEX Qty: 1 3RF Rx Instructions: 155 UNITS IM IN THE FACE AND NECK MUSCLES EVERY 12 WEEKS PER MIGRAINE PROTOCOL testosterone 20.25 mg/1.25 gram (1.62 %) gel in metered-dose pump 2 pump TOP PM Qty: 75 5RF Rx Instructions: apply 1 pump amount over max area of EACH upper arm and shoulder PDMP Queried ok to fill 05-27-22 DS lithium carbonate 300 mg tablet 300 mg PO AMHS trazodone 100 mg tablet 100 mg PO HS Norditropin FlexPro 5 mg/1.5 mL (3.3 mg/mL) pen injector 0.3 mg SQ PM Qty: 3 11RF dutasteride [Avodart] 0.5 mg capsule 0.5 mg PO QAM Qty: 90 3RF alfuzosin 10 mg tablet extended release 24 hr 10 mg PO QAM Qty: 90 3RF Rx Instructions: TAKE THIS MED AFTER A MEAL insulin glargine [Lantus Solostar U-100 Insulin] 100 unit/mL (3 mL) insulin pen 10 unit subcut QPM Qty: 15 3RF atorvastatin 10 mg tablet 10 mg PO QAM 90 Days Qty: 90 0RF lacosamide [Vimpat] 50 mg tablet See Rx Instructions .ROUTE .COMPLEX Qty: 90 5RF Rx Instructions: 1 tab po in AM and 2 tabs po in PM; furosemide 40 mg tablet 40 mg PO QAM Qty: 90 3RF lisinopril 5 mg tablet 5 mg PO QDL Qty: 90 3RF meclizine 25 mg tablet 25 mg PO AMPM Qty: 180 3RF metformin 1,000 mg tablet 1,000 mg PO AMPM Qty: 180 3RF propranolol 120 mg capsule,extended release 24 hr 120 mg PO QPM Qty: 90 1RF cyclobenzaprine 10 mg tablet 10 mg PO BID PRN (Reason: muscle spasm) 30 Days Qty: 60 1RF prednisone 5 mg tablet 5 mg PO DIRECTED Rx Instructions: PER PT "ON AND OFF REGIMENT HE FOLLOWS". (DME) OneTouch Verio test strips Strip See Rx Instructions .Route Rx Instructions: Test blood sugar two times daily Rexulti 3 mg tablet 3 mg PO QAM duloxetine 30 mg capsule,delayed release(DR/EC) 30 mg PO QDL Rx Instructions: TOTAL DOSE 90 MG--TAKES WITH 60 MG CAP. mirtazapine [Remeron] 30 mg tablet 30 mg PO HS celecoxib 200 mg capsule 200 mg PO DAILY PRN (Reason: Pain) lorazepam 0.5 mg tablet 1 mg PO HS Rx Instructions: from psychiatrist 09/04/21 [facility] ODT 75 mg tablet,disintegrating 75 mg PO DAILY PRN (Reason: Migraine Headache) oxycodone 5 mg tablet 5 mg PO Q6H PRN (Reason: pain) Qty: 8 0RF prazosin [Minipress] 5 mg capsule 5 mg PO HS levothyroxine 200 mcg tablet 200 mcg PO QAM duloxetine 60 mg capsule,delayed release(DR/EC) 60 mg PO QDL Rx Instructions: TOTAL DOSE 90 MG--TAKES WITH 30 MG CAP. cholecalciferol (vitamin D3) 50 mcg (2,000 unit) capsule 50 mcg PO QPM albuterol sulfate 90 mcg/actuation HFA aerosol inhaler 1 inh inhalation QID PRN (Reason: Shortness Of Breath Or Wheezing) gabapentin 400 mg capsule See Rx Instructions .ROUTE .COMPLEX Rx Instructions: 400 mg orally; TAKES 400 MG QAM AND AFTERNOON, THEN 800 MG HS. acetaminophen 325 mg Tablet 650 mg PO Q6H PRN (Reason: pain) Qty: 30 0RF hydrocortisone 10 mg tablet 20 mg PO BID Rx Instructions: TAKE TWO TABLETS IN THE AM AND 1 TABLET IN THE PM. MAY DOUBLE THE DOSE IN TIMES OF STRESS. phenazopyridine [Pyridium] 200 mg tablet 200 mg PO Q8H PRN (Reason: pain) Qty: 10 0RF oxybutynin chloride 5 mg tablet 5 mg PO Q8H PRN (Reason: bladder spasms) Qty: 20 0RF oxycodone-acetaminophen [Percocet] 7.5-325 mg tablet 1 tab PO Q8H PRN (Reason: pain) Qty: 7 0RF pantoprazole [Protonix] 40 mg tablet,delayed release (DR/EC) 40 mg PO QAM desmopressin [DDAVP] 0.1 mg tablet 0.4 mg PO BID docusate sodium [Colace] 100 mg capsule 100 mg PO BID Qty: 60 0RF Rx Instructions: Take twice daily for 2 weeks, then as needed for constipation. divalproex 500 mg Tablet,Delayed Release (Dr/Ec) 1,000 mg PO BID 30 Days Qty: 120 0RF Referrals Referrals: ProLarry MD [Primary Care Provider] -
[2022-12-09 02:52] LABS: iSTAT Creatinine 1.2 mg/dl (0.6-1.3); iSTAT Hemoglobin 13.9 g/dl (14.0-18.0); iSTAT Ionized Calcium 1.08 mmol/l (1.12-1.32)
[2022-12-09 02:57] LABS: Basophils # (auto) 0.04 K/uL (0-0.2); Basophils % (auto) 0.3 %; Eosinophils # (auto) 0.01 K/uL (0-0.50); Eosinophils % (auto) 0.1 %; Hematocrit (blood only) 38.1 % (40.1-51.0); Hemoglobin 12.8 g/dl (14.0-18.0); Immature Granulocytes # (auto) 0.14 K/uL (0.00-0.02); Lymphocytes % (auto) 14.3 %; Mean Corpuscular Hemoglobin 29.3 pg (25.0-34.0); Mean Corpuscular Hgb Conc 33.6 g/dL (32.0-36.0); Mean Corpuscular Volume 87.2 fL (80.0-100.0); Mean Platelet Volume 9.3 fL (9.4-12.4); Monocytes % (auto) 3.6 %; Neutrophils # (auto) 11.32 K/uL (1.4-6.5); Neutrophils % (auto) 80.7 %; Platelet Count 241 K/uL (130-400); RDW Coefficient of Variation 15.4 % (11.5-14.5); RDW Standard Deviation 48.8 fL (36.4-46.3); Red Blood Count 4.37 M/uL (4.63-6.08); White Blood Count 14.01 K/ul (4.8-10.8)
[2022-12-09 03:27] LABS: Troponin I High Sensitivity 4.1 pg/ml (0-20)
[2022-12-09 04:08] LABS: Alanine Aminotransferase 27 U/L (7-52); Albumin Globulin Ratio 1.7 (0.9-2); Albumin Level 4.3 gm/dl (3.4-5.0); Alkaline Phosphatase 54 U/L (34-104); Anion Gap 7 (3-11); BUN Creatinine Ratio 10.9 (10-20); Bilirubin,Total 0.4 mg/dl (0.2-1.0); Blood Urea Nitrogen 12 mg/dl (6-23); Calcium 9.2 mg/dl (8.5-10.1); Carbon Dioxide 28 mmol/L (21-32); Chloride 99 mmol/L (98-107); Creatinine Clr Calc Pharmacy 95.6 ml/min; Est GFR (African American) 87.7 ml/min; Est GFR (Non-African American) 75.7 ml/min; Globulin 2.5 gm/dl (2.5-4.0); Glucose 130 mg/dl (70-99(Fasting)); Magnesium 1.7 mg/dl (1.7-2.4); Sodium 134 mmol/L (136-145); Total Protein 6.8 gm/dl (6.0-8.3)
[2022-12-09 04:54] LABS: Amphetamines+Metham, Urine Neg (Neg); Barbiturates, Urine Neg (Neg); Benzodiazepine, Urine Pos (Neg); Cocaine, Urine Neg (Neg); MDMA (Ecstacy), Urine Neg (Neg); Methadone, Urine Neg (Neg); Opiate, Urine Neg (Neg); Phencyclidine, Urine Neg (Neg)
[2022-12-09 05:08] LABS: Prothrombin Time 10.9 Seconds (9.0-12.0)
[2022-12-09 05:27] LABS: Potassium 4.1 mmol/L (3.5-5.1)
--- NOTE | 2022-12-09 06:25 | History & Physical Report ---
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: (11) Pituitary hypogonadism: (12) Pituitary hypothyroidism: (13) Depression: (14) BPH with obstruction/lower urinary tract symptoms: Plan Acute alteration in mental status/admitted benzodiazepine overdose to help him sleep/status post TURP on 12/06/2022- The patient will be admitted to telemetry for serial cardiac enzymes, serial EKG's, cardiac rhythm monitorin Status post TURP for BPH with LUTS- Order urine culture and sensitivity Empiric treatment for potential complicated UTI and sepsis with Zosyn 4.5 g IV every 8 hours Follow urine culture and sensitivity Continue alfuzosin and dutasteride Seizure disorder- Continue divalproex and Vimpat and lithium Diabetes mellitus- Hold metformin and glargine Placed on Accu-Cheks with NovoLog SSI Panhypopituitary- Continue desmopressin, testosterone gel, somatotropin, Hypothyroidism- Continue levothyroxine Anxiety with depression- Hold medications until some clearance of mentation as Ativan wears off History of Present Illness Chief Complaint: The patient presents to the emergency department with altered mental status and vomiting. Patient admitted to ED staff that he just needed sleep, so he took a number of his Ativan pills so that he can sleep. Primary Care Provider: Larry Amaral MD The patient is a 52-year-old male with a past medical history including diabetes mellitus type 2, syncope and collapse, anxiety, mitral vegetation, migraine without aura, seizure disorder, idiopathic polyneuropathy, seizure-like activity, panhypopituitary is him, pseudoseizures, arachnoid cyst the posterior cranial fossa, CORINA, ulcerative colitis, mixed hyperlipidemia, pituitary diabetes insipidus, pituitary hypogonadism, pituitary hypothyroidism, depression, BPH with LUTS and sensorineural hearing loss of both ears. Patient was most recently admitted to [facility] from 12/06-12/07/2022 for a TURP procedure by urology. As noted above, he reported to ED staff that he took extra lorazepam pills so he could rest. The patient has come to the ED altered, sedated, confused, and suspected to combination of possible infection from recent TURP procedure, and taking additional benzodiazepines Allergies Allergy/AdvReac Type Severity Reaction Status Date / Time clindamycin Allergy Intermediate SWELLING Verified 12/09/22 02:39 Iodinated Contrast Media Allergy Intermediate face/eye Verified 12/09/22 02:39 swelling Quinolones Allergy Intermediate HIVES Verified 12/09/22 02:39 Home Medications Medication Instructions Recorded Confirmed Type cyclobenzaprine 10 mg tablet 10 mg PO BID PRN muscle spasm 30 09/18/20 12/09/22 Rx days #60 tabs albuterol sulfate 90 mcg/actuation 1 inh inhalation QID PRN Shortness 07/28/21 12/09/22 History aerosol inhaler Of Breath Or Wheezing gabapentin 400 mg capsule See Rx Instructions .Route .COMPLEX 08/11/21 12/09/22 History rimegepant 75 mg disintegrating 75 mg PO DAILY PRN Migraine 08/20/21 12/09/22 History tablet (Nurtec ODT) Headache lorazepam 0.5 mg tablet 1 mg PO HS sleep 09/04/21 12/09/22 History fluticasone propionate 50 1 spray intranasal HS PRN allergy 10/23/21 12/09/22 Rx mcg/actuation nasal symptoms #16 grams spray,suspension (Flonase Allergy Relief) onabotulinumtoxinA 200 unit See Rx Instructions IM .COMPLEX #1 12/25/21 12/09/22 Rx solution for injection (Botox) ea acetaminophen 325 mg tablet 650 mg PO Q6H PRN pain #30 tabs 03/01/22 12/09/22 Rx testosterone 20.25 mg/1.25 gram 2 pump topical PM #75 grams 05/27/22 12/09/22 Rx (1.62 %) transdermal gel pump lithium carbonate 300 mg tablet 300 mg PO AMHS 06/04/22 12/09/22 History somatropin 5 mg/1.5 mL (3.3 mg/mL) 0.3 mg (0.09 mL) subcut PM #3 mL 06/04/22 12/09/22 Rx subcutaneous pen injector (Norditropin FlexPro) trazodone 100 mg tablet 100 mg PO HS 06/04/22 12/09/22 History brexpiprazole 3 mg tablet (Rexulti) 3 mg PO QAM 06/23/22 12/09/22 History celecoxib 200 mg capsule 200 mg PO DAILY PRN Pain 06/23/22 12/09/22 History duloxetine 30 mg capsule,delayed 30 mg PO QDL 06/23/22 12/09/22 History release mirtazapine 30 mg tablet (Remeron) 30 mg PO HS 06/23/22 12/09/22 History alfuzosin 10 mg tablet,extended 10 mg PO QAM #90 tabs 08/05/22 12/09/22 Rx release 24 hr dutasteride 0.5 mg capsule 0.5 mg PO QAM #90 caps 08/05/22 12/09/22 Rx (Avodart) blood sugar diagnostic (OneTouch 08/06/22 12/08/22 History Verio test strips) insulin glargine 100 unit/mL (3 10 unit (0.1 mL) subcut QPM #15 mL 08/06/22 12/09/22 Rx mL) subcutaneous pen (Lantus Solostar U-100 Insulin) oxycodone 5 mg tablet 5 mg PO Q6H PRN pain #8 tabs 08/27/22 12/09/22 Rx atorvastatin 10 mg tablet 10 mg PO QAM 90 days #90 tabs 09/02/22 12/09/22 Rx Vimpat 50 mg tablet (lacosamide) See Rx Instructions .Route 09/03/22 12/09/22 Rx .COMPLEX #90 tabs prednisone 5 mg tablet 5 mg PO DIRECTED 09/24/22 12/09/22 History cholecalciferol (vitamin D3) 50 50 mcg PO QPM 11/09/22 12/09/22 History mcg (2,000 unit) capsule duloxetine 60 mg capsule,delayed 60 mg PO QDL 11/09/22 12/09/22 History release levothyroxine 200 mcg tablet 200 mcg PO QAM 11/09/22 12/09/22 History prazosin 5 mg capsule (Minipress) 5 mg PO HS 11/09/22 12/09/22 History furosemide 40 mg tablet 40 mg PO QAM #90 tabs 11/18/22 12/09/22 Rx lisinopril 5 mg tablet 5 mg PO QDL #90 tabs 11/18/22 12/09/22 Rx meclizine 25 mg tablet 25 mg PO AMPM #180 tabs 11/18/22 12/09/22 Rx metformin 1,000 mg tablet 1,000 mg PO AMPM #180 tabs 11/18/22 12/09/22 Rx propranolol 120 mg capsule,24 120 mg PO QPM #90 caps 11/19/22 12/09/22 Rx hr,extended release hydrocortisone 10 mg tablet 20 mg PO BID 11/29/22 12/09/22 History desmopressin 0.1 mg tablet (DDAVP) 0.4 mg PO BID 12/06/22 12/09/22 History oxybutynin chloride 5 mg tablet 5 mg PO Q8H PRN bladder spasms #20 12/06/22 12/09/22 Rx tabs oxycodone-acetaminophen 7.5 mg-325 1 tab PO Q8H PRN pain #7 tabs 12/06/22 12/09/22 Rx mg tablet (Percocet) pantoprazole 40 mg tablet,delayed 40 mg PO QAM 12/06/22 12/09/22 History release (Protonix) phenazopyridine 200 mg tablet 200 mg PO Q8H PRN pain #10 tabs 12/06/22 12/09/22 Rx (Pyridium) divalproex 500 mg tablet,delayed 1,000 mg PO BID 30 days #120 tabs 12/07/22 12/09/22 Rx release docusate sodium 100 mg capsule 100 mg PO BID #60 caps 12/07/22 12/09/22 Rx (Colace) Past Med/Surg History Medical History Acute kidney injury September 2022 (s/p grand mal seizure) Bladder mass benign BPH with obstruction/lower urinary tract symptoms Depression DM type 2 (diabetes mellitus, type 2) Growth hormone deficiency History of COVID-19 10/2021 - fatigue; resolved. Hx of fracture of foot Sep 2022- right > cast present Insomnia Kidney stones HX Lower extremity edema Lumbar radiculopathy Lumbar spine pain Migraine without aura and without status migrainosus, not intractable Mitral valve regurgitation follows with Dr. Phillips Obstructive sleep apnea of adult cpap Pituitary diabetes insipidus Follows with endocrinology- on DDAVP Pituitary hypogonadism Follows with endocrinology- Pituitary hypothyroidism Follows with endocrinology- Pituitary neoplasm Dx'ed in 2001- s/p surgical resection and XRT Repeat surgery in 2015 secondary to tumor regrowth Presence of cardiac device Loop recorder > last checked summer 2021 Prostate mass benign Rectal bleeding still present Secondary adrenal insufficiency Seizure disorder last seizure grand mal and petite mal on Oct 01, 2022 > follows with Dr. Ordonez and goes to neurology at [facility], unsure of MD's name Sensorineural hearing loss of both ears SOB (shortness of breath) on exertion Syncope and collapse Reason for loop recorder No recent issues since bed bound from femur fracture in Sep 2022 per patient Tremor Surgical History History of bladder surgery remove mass History of brain surgery x2---2004 @ [facility] [place], [facility]for [facility] > caused epilepsy History of cardiac cath 07/2021 - no stents History of colonoscopy History of esophagogastroduodenoscopy (EGD) History of lithotripsy History of lumbar fusion [facility] Jul 2022 History of prostate surgery remove mass History of tooth extraction History of wisdom tooth extraction S/P epidural steroid injection Status post right foot surgery replaced 5th metatarsal--hardware in place Family History Grandmother (Paternal) Family history of diabetes mellitus Aunt Family history of diabetes mellitus Uncle Family history of diabetes mellitus Father Prostate cancer Heart disease Mother Cardiac disorder Grandmother (Maternal) Myocardial infarction Other Asthma Cancer Hypertension No family history of adverse response to anesthesia No family history of bleeding disorder Stroke Denies family history of Ovarian cancer Breast cancer Colorectal cancer Social History Smoking Status: Unknown if ever smoked Tobacco Type: Smokeless Tobacco (Dip or Chew) Second Hand Exposure: Yes; Hx Alcohol Use: No Hx Substance Use: No Preferred Language: Guatemalan Communication Ability: Effective Visual Impairment: No Limitations 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 HEENT--PERRL, EOMI, mucous membranes and oropharynx dry. Neck--supple. No JVD. No bruits. Thyroid normal, trachea midline, no adenopathy. Heart--normal S1 and S2. No murmurs, rubs or gallops. Lungs--clear bilaterally, no respiratory distress, no accessory muscle use. Abdomen--normal bowel sounds and soft. Nontender. Nondistended, no hernias or masses, no organomegaly. Extremities--no cyanosis or clubbing. No edema. Dermatologic--normal skin turgor, normal color, no abnormal lymph nodes, no rash. Neurologic--cranial nerves II through XII grossly intact. Rheumatologic--limited exam Psychiatric--sedated Results & Data Results & Data ([facility]) Vital Signs (Past 12 Hours) Vital Signs Temp Pulse Pulse Resp BP BP Pulse Ox 12/09/22 06:00 79 16 132/106 H 94 12/09/22 03:17 77 16 164/109 H 96 12/09/22 03:16 96 12/09/22 02:33 36.6 C 81 16 170/107 H 91 O2 Del Method O2 Flow Rate 12/09/22 06:00 Room Air 12/09/22 03:17 Room Air 12/09/22 03:16 Room Air 0 12/09/22 02:33 Room Air Laboratory Results Laboratory Results WBC 14.01 K/ul (4.8-10.8) H 12/09/22 02:30 RBC 4.37 M/uL (4.63-6.08) L 12/09/22 02:30 Hgb 12.8 g/dl (14.0-18.0) L 12/09/22 02:30 POC Hgb 13.9 g/dl (14.0-18.0) L 12/09/22 02:34 Hct 38.1 % (40.1-51.0) L 12/09/22 02:30 POC Hct 41 % (42-52) L 12/09/22 02:34 MCV 87.2 fL (80.0-100.0) 12/09/22 02:30 MCH 29.3 pg (25.0-34.0) 12/09/22 02:30 MCHC 33.6 g/dL (32.0-36.0) 12/09/22 02:30 RDW Std Deviation 48.8 fL (36.4-46.3) H 12/09/22 02:30 RDW Coeff of Yanira 15.4 % (11.5-14.5) H 12/09/22 02:30 Plt Count 241 K/uL (130-400) 12/09/22 02:30 MPV 9.3 fL (9.4-12.4) L 12/09/22 02:30 Immature Gran % (Auto) 1.0 % 12/09/22 02:30 Neut % (Auto) 80.7 % 12/09/22 02:30 Lymph % (Auto) 14.3 % 12/09/22 02:30 Morrison % (Auto) 3.6 % 12/09/22 02:30 Eos % (Auto) 0.1 % 12/09/22 02:30 Baso % (Auto) 0.3 % 12/09/22 02:30 Neut # (Auto) 11.32 K/uL (1.4-6.5) H 12/09/22 02:30 Lymph # (Auto) 2.00 K/uL (1.2-3.4) 12/09/22 02:30 Morrison # (Auto) 0.50 K/uL (0.24-0.82) 12/09/22 02:30 Eos # (Auto) 0.01 K/uL (0-0.50) 12/09/22 02:30 Baso # (Auto) 0.04 K/uL (0-0.2) 12/09/22 02:30 Immature Gran # (Auto) 0.14 K/uL (0.00-0.02) H 12/09/22 02:30 PT 10.9 Seconds (9.0-12.0) 12/09/22 03:56 INR 1.0 (0.9-1.1) 12/09/22 03:56 POC Sodium 135 mmol/L (135-144) 12/09/22 02:34 Sodium 134 mmol/L (136-145) L 12/09/22 02:30 POC Potassium 5.0 mmol/L (3.3-5.0) 12/09/22 02:34 Potassium 4.1 mmol/L (3.5-5.1) D 12/09/22 03:56 POC Chloride 99 mmol/L (101-112) L 12/09/22 02:34 Chloride 99 mmol/L (98-107) 12/09/22 02:30 Carbon Dioxide 28 mmol/L (21-32) 12/09/22 02:30 POC Total CO2 29 mmol/L (24-31) 12/09/22 02:34 Anion Gap 7 (3-11) 12/09/22 02:30 POC Anion Gap 13.0 mmol/L (16-25) L 12/09/22 02:34 POC BUN 14 mg/dl (7-18) 12/09/22 02:34 BUN 12 mg/dl (6-23) 12/09/22 02:30 Creatinine 1.10 mg/dl (0.6-1.4) D 12/09/22 02:30 POC Creatinine 1.2 mg/dl (0.6-1.3) 12/09/22 02:34 Est Cr Clr Drug Dosing 95.6 ml/min 12/09/22 02:30 Est GFR ( Amer) 87.7 ml/min 12/09/22 02:30 Est GFR (Non-Af Amer) 75.7 ml/min 12/09/22 02:30 BUN/Creatinine Ratio 10.9 (10-20) 12/09/22 02:30 Glucose 130 mg/dl (70-99(Fasting)) H 12/09/22 02:30 POC Glucose (other) 134 mg/dl (70-99) H 12/09/22 02:34 Calcium 9.2 mg/dl (8.5-10.1) 12/09/22 02:30 POC Ioniz Calcium Jeny 1.08 mmol/l (1.12-1.32) L 12/09/22 02:34 Magnesium 1.7 mg/dl (1.7-2.4) 12/09/22 02:30 Total Bilirubin 0.4 mg/dl (0.2-1.0) 12/09/22 02:30 AST 19 U/L (13-39) 12/09/22 03:56 ALT 27 U/L (7-52) 12/09/22 02:30 Alkaline Phosphatase 54 U/L (34-104) 12/09/22 02:30 Troponin I High Sens 4.1 pg/ml (0-20) 12/09/22 02:30 Total Protein 6.8 gm/dl (6.0-8.3) 12/09/22 02:30 Albumin 4.3 gm/dl (3.4-5.0) 12/09/22 02:30 Globulin 2.5 gm/dl (2.5-4.0) 12/09/22 02:30 Albumin/Globulin Ratio 1.7 (0.9-2) 12/09/22 02:30 Urine Opiates Screen Neg (Neg) 12/09/22 04:18 Ur Methadone, Qual Neg (Neg) 12/09/22 04:18 Urine Barbiturates Neg (Neg) 12/09/22 04:18 Valproic Acid 27 mcg/ml (50-100) L 12/09/22 03:56 Ur Phencyclidine (PCP) Neg (Neg) 12/09/22 04:18 U Amphetamin/Meth Scrn Neg (Neg) 12/09/22 04:18 MDMA (Ecstasy) Screen Neg (Neg) 12/09/22 04:18 U Benzodiazepines Scrn Pos (Neg) H 12/09/22 04:18 Ur Cocaine Metabolite Neg (Neg) 12/09/22 04:18 U Marijuana (THC) Screen Neg (Neg) 12/09/22 04:18 Ethyl Alcohol mg/dL < 10.0 mg/dl (<10.0) 12/09/22 03:56 SARS-CoV-2, RNA, NAAT NEGATIVE (NEGATIVE) 12/09/22 04:50 Diagnostic Findings [facility] Patient: LINSEY VIRAMONTES JR (Male) : 66 Status: ER Date: 12/09/22 03:17 Room #: History: AMS Slices: 106 Priors: Tech: Timo Mireles @ [phone] Exams: CT HEAD Contrast: Accession Numbers: [id number] Referring Physician: ISABEL ARMENTA Preliminary Findings Only See Final Report For Complete Findings CT HEAD: Prior exam: none Findings: The ventricular system is midline and nondilated. The sulcal pattern is normal for the patient's age. There is no bleed, mass, extra axial fluid collection or mass effect. There is a 4.9 x 3.5 cm right retrocerebellar arachnoid cyst with mild scalloping of the inner table of the skull. The visualized paranasal sinuses are well aerated. The visualized mastoid air cell are well aerated. There is no skull fracture or concerning bone lesion. Impression No evidence of acute intracranial pathology. Right retrocerebellar arachnoid cyst is presumably an incidental finding. Radiologist: Homar Daly MD Study ready at 03:21 and initial results transmitted at 05:30 *This report constitutes a preliminary interpretation only. Non-acute findings felt to be unrelated to the clinical presentation may not be discussed in this report. The study will be interpreted and a final report will be generated by the local Radiologist the following shift. To reach the [facility] radiology department call [phone]. If a discrepancy is found between the preliminary and final interpretations of this study, please notify us via our Client Portal at [email or web address], under QA Exams. You can also fax this report with a description of the discrepancy, or include the final report, to our daytime fax number [phone]. If faxing, please indicate the severity of discrepancy using one of the following categories: [ ] 1 - Agree/Informational [ ] 2 - Unlikely to Affect Management [ ] 3 - Possible Eventual Change of Management [ ] 4 - Probable Immediate Change of Management For all other patient related information, please fax us at [phone]. [id number] Code Status & VTE Plan Code Status Full code VTE Prophylaxis Plan VTE Prophylaxis will be ordered: Yes PG Care Time/CCT Total # of Minutes Spent Total Time Spent with Patient: Total time spent is greater than 50% in coordination of care (as documented) at patient's floor/unit and/or counseling patient: Coding Level of Care Code 22637 INT INP/OBS CARE 3/75MIN Diagnoses Acute alteration in mental status R41.82 Benzodiazepine overdose T42.4X1A S/P TURP (status post transurethral resection of prostate) Z90.79 DM type 2 (diabetes mellitus, type 2) E11.9 Anxiety F41.9 Seizure disorder G40.909 Idiopathic polyneuropathy G60.9 Panhypopituitarism E23.0 Pseudoseizures R56.9 Pituitary diabetes insipidus E23.2 Pituitary hypogonadism E23.0 Pituitary hypothyroidism E03.8 Depression F32.9 BPH with obstruction/lower urinary tract symptoms N40.1; N13.8
[2022-12-09] MEDS ORDERED: PIPERACILLIN/TAZOBACTAM 4.5 GM (over 30 mins) IV ONE (06:45)
--- NOTE | 2022-12-09 07:11 | CT Scan Report ---
CT SCAN OF THE BRAIN WITHOUT IV CONTRAST CLINICAL HISTORY: Change in mental status. COMPARISON STUDY: CT of the brain dated 10/04/2022. TECHNIQUE: Unenhanced axial CT scan of the brain is performed from the vertex to the skull base. A d ose lowering technique was utilized adhering to the principles of ALARA. The skull base was scanned t wice due to motion artifact. CT DOSE: 1078.04 mGy.cm FINDINGS: Brain parenchyma: The brain parenchyma is normal in appearance. There is no hemorrhage, mass effect, or evidence of acute territorial ischemia by CT criteria. Paul-white matter differentiation is preser leonardo. No extra-axial fluid collection is seen. Ventricles, sulci, cisterns: Normal in configuration. Megacisterna magna is incidentally noted. Intracranial vasculature: The visualized intracranial vasculature at the skull base is normal in appe arance. Calvarium: Unremarkable. Sinuses and mastoids: The visualized paranasal sinuses are clear. The mastoid air cells are well pneu matized. Orbits: The bony orbits are grossly intact. IMPRESSION: There is no hemorrhage, mass effect, or evidence of acute territorial ischemia by CT du barbosa. ACT 112: Negative or not required by law. Electronically signed by: Galindo Mejia M.D. 12/09/2022 7:09 AM
[2022-12-09] MEDS ORDERED: GABAPENTIN 400 MG CAP PO SCH (08:50)
[2022-12-09] MEDS ORDERED: PHENAZOPYRIDINE HCL 200 MG TAB PO PRN (08:50)
[2022-12-09] MEDS ORDERED: ONDANSETRON INJ 2 MG/ML 2 ML VIAL IV PRN (08:50)
[2022-12-09] MEDS ORDERED: CYCLOBENZAPRINE HCL 10 MG TAB PO PRN (08:50)
[2022-12-09] MEDS ORDERED: CARBOHYDRATES FOR HYPOGLYCEMIA PO PRN (08:50)
[2022-12-09] MEDS ORDERED: ALBUTEROL HFA 8 GM INHALER INH PRN (08:50)
[2022-12-09] MEDS ORDERED: GLUCAGON FOR INJ 1 MG VIAL SQ PRN (08:50)
[2022-12-09] MEDS ORDERED: GLUCOSE 10 TAB/TUBE PO PRN (08:50)
[2022-12-09] MEDS ORDERED: GLUCOSE 40% GEL 15 GM TUBE PO PRN (08:50)
[2022-12-09] MEDS ORDERED: DEXTROSE 50% 50 ML SYRINGE IV PRN (08:50)
[2022-12-09] MEDS ORDERED: NON-FORMULARY MEDICATION (Dutasteride [Avodart] 0.5 mg capsule) PO SCH (09:00)
[2022-12-09] MEDS ORDERED: PANTOprazole 40 MG TAB PO SCH (09:00)
[2022-12-09] MEDS ORDERED: HYDROCORTISONE 10 MG TAB PO SCH (09:00)
[2022-12-09] MEDS ORDERED: ATORVASTATIN 10 MG TAB PO SCH (09:00)
--- NOTE | 2022-12-09 09:49 | XRay Report ---
SINGLE VIEW CHEST CLINICAL HISTORY: Change in mental status. FINDINGS: An AP, portable, upright chest radiograph is compared to study dated 11/09/2022 and correla luisito with chest CT dated 10/04/2022. An electronic device projects over the lower chest. The heart is enlarged. There is pulmonary vascular congestion. Dependent atelectasis is present at the lung bases. No large pleural effusion or pneumothorax is seen. The skeletal structures are osteopenic. There is chronic posttraumatic deformity of the left clavicle. IMPRESSION: Cardiomegaly with pulmonary vascular congestion. ACT 112: Negative or not required by law. Electronically signed by: Galindo Mejia M.D. 12/09/2022 9:47 AM
[2022-12-09] MEDS: INSULIN ASPART PER UNIT SC SCH ×3 (10:34→17:25)
[2022-12-09] MEDS: DIVALPROEX DELAY RELEASE 500 MG TAB PO SCH ×2 (10:35→20:08)
[2022-12-09] MEDS: MECLIZINE HCL 25 MG TAB PO SCH ×2 (10:35→10:36)
[2022-12-09] MEDS: DESMOPRESSIN ACETATE 0.1 MG TAB PO SCH (10:35)
[2022-12-09] MEDS: ALFUZOSIN HCL 10 MG TAB PO SCH (10:35)
[2022-12-09] MEDS: LITHIUM CARBONATE 300 MG TAB PO SCH ×2 (10:36→20:09)
[2022-12-09] MEDS: LEVOTHYROXINE SODIUM 200 MCG TABLET PO SCH (10:36)
[2022-12-09] MEDS: NSS + 20MEQ KCL 20 MEQ/1,000 ML BAG IV SCH ×2 (11:11→20:11)
[2022-12-09] MEDS: DULoxetine HCL 30 MG CAP PO SCH (11:44)
[2022-12-09] MEDS: DULoxetine HCL 60 MG CAP PO SCH (11:44)
[2022-12-09] MEDS: HYDROCORTISONE SOD 50 MG in SYRINGE 0 ML IV SCH ×2 (12:28→20:07)
[2022-12-09] MEDS ORDERED: DESMOPRESSIN ACETATE 1 MCG in SODIUM CHLORIDE 0.9% 50 ML IV ONE (12:30)
[2022-12-09] MEDS: PIPERACILLIN/TAZOBACTAM 4.5 GM in DEXTROSE 5% 100 ML IV SCH ×2 (13:54→20:07)
[2022-12-09] MEDS: LACOSAMIDE 50 MG TABLET PO SCH ×2 (13:55→20:09)
--- NOTE | 2022-12-09 16:17 | Hospitalist Progress Note ---
Date of Service December 09, 2022 Assessment & Plan (1) Acute alteration in mental status: Plan: acute toxic encephalopathy due to benzodiazepine overdose not intent to harm but mis use (2) Benzodiazepine overdose: (3) S/P TURP (status post transurethral resection of prostate): Plan: recent TURP 12/06/22 urine culture and sensitivity Empiric treatment for potential complicated UTI with Zosyn 4.5 g IV every 8 hours Follow urine culture and sensitivity Continue alfuzosin and dutasteride when taking po (4) DM type 2 (diabetes mellitus, type 2): Plan: chronic stable problem, with alteration in alertness and variable po intake will change to basal bolus insulin (5) Seizure disorder: Plan: chronic stable condition Challenging as medications are not able to convert to iv doses, hopeful to awaken to take po, if seizure will consider dose of Keppra also carries DX of PNES (6) Idiopathic polyneuropathy: (7) Panhypopituitarism: Plan: chronic stable, will need to alter dosing of medications as cannot take po at this time will give iv hydrocortisone, and iv desmopressin for Diabetes insipidus (8) Pituitary diabetes insipidus: (9) Pituitary hypogonadism: (10) Pituitary hypothyroidism: (11) Depression: Admission and Anticipated Discharge Date Admission Date: December 09, 2022 Subjective pt was lethargic, no distress Physical Exam Physical Exam: sedate no respiratory distress, clear lungs Results & Data Results & Data ([facility]) Vital Signs (Past 12 Hours) Vital Signs Temp Pulse Pulse Resp BP Pulse Ox O2 Del Method 12/09/22 15:31 97.5 F L 69 12 122/76 94 Room Air 12/09/22 14:14 62 12/09/22 08:14 74 12/09/22 11:07 74 12 115/81 93 Room Air 12/09/22 08:15 98.2 F 74 16 117/79 94 Room Air 12/09/22 06:00 79 16 132/106 H 94 Room Air PG Care Time/CCT Total # of Minutes Spent Total Time Spent with Patient: Total time spent is greater than 50% in coordination of care (as documented) at patient's floor/unit and/or counseling patient: Coding Level of Care Code 42084 SUB INP/OBS CARE 3/50MIN Diagnoses Acute alteration in mental status R41.82 Benzodiazepine overdose T42.4X1A S/P TURP (status post transurethral resection of prostate) Z90.79 DM type 2 (diabetes mellitus, type 2) E11.9 Seizure disorder G40.909 Idiopathic polyneuropathy G60.9 Panhypopituitarism E23.0 Pituitary diabetes insipidus E23.2 Pituitary hypogonadism E23.0 Pituitary hypothyroidism E03.8 Depression F32.9
[2022-12-09] MEDS: PROPRANOLOL HCL 60 MG LA CAP PO SCH (20:10)
[2022-12-09] MEDS: PRAZOSIN HCL 1 MG CAP PO SCH (20:10)
[2022-12-09] MEDS ORDERED: DESMOPRESSIN ACETATE 1 MCG in SODIUM CHLORIDE 0.9% 50 ML IV SCH (21:00)
[2022-12-09] MEDS ORDERED: CHOLECALCIFEROL 1,000 UNITS 25 MCG TAB PO SCH (21:00)
[2022-12-09] MEDS ORDERED: LORazepam 1 MG TAB PO SCH (21:00)
[2022-12-10] MEDS: INSULIN ASPART PER UNIT SC SCH ×5 (00:10→20:37)
[2022-12-10] MEDS: PIPERACILLIN/TAZOBACTAM 4.5 GM in DEXTROSE 5% 100 ML IV SCH ×3 (04:00→19:57)
[2022-12-10] MEDS: HYDROCORTISONE SOD 50 MG in SYRINGE 0 ML IV SCH (04:00)
[2022-12-10] MEDS: NSS + 20MEQ KCL 20 MEQ/1,000 ML BAG IV SCH ×2 (06:02→15:22)
[2022-12-10 07:13] LABS: Basophils # (auto) 0.03 K/uL (0-0.2); Basophils % (auto) 0.3 %; Eosinophils # (auto) 0.01 K/uL (0-0.50); Eosinophils % (auto) 0.1 %; Hematocrit (blood only) 35.6 % (40.1-51.0); Hemoglobin 12.1 g/dl (14.0-18.0); Immature Granulocytes # (auto) 0.13 K/uL (0.00-0.02); Immature Granulocytes % (auto) 1.2 %; Lymphocytes % (auto) 19.1 %; Mean Corpuscular Hemoglobin 29.2 pg (25.0-34.0); Mean Corpuscular Volume 85.8 fL (80.0-100.0); Mean Platelet Volume 8.4 fL (9.4-12.4); Monocytes # (auto) 0.38 K/uL (0.24-0.82); Monocytes % (auto) 3.6 %; Neutrophils # (auto) 7.91 K/uL (1.4-6.5); Neutrophils % (auto) 75.7 %; Platelet Count 234 K/uL (130-400); RDW Coefficient of Variation 15.2 % (11.5-14.5); RDW Standard Deviation 48.5 fL (36.4-46.3); Red Blood Count 4.15 M/uL (4.63-6.08); White Blood Count 10.46 K/ul (4.8-10.8)
[2022-12-10 08:12] LABS: Albumin Level 3.6 gm/dl (3.4-5.0); Bilirubin,Total 0.5 mg/dl (0.2-1.0); Calcium 7.9 mg/dl (8.5-10.1); Magnesium 1.5 mg/dl (1.7-2.4); Potassium 3.9 mmol/L (3.5-5.1)
[2022-12-10] MEDS: DIVALPROEX DELAY RELEASE 500 MG TAB PO SCH ×2 (08:14→20:52)
[2022-12-10] MEDS: HYDROCORTISONE 10 MG TAB PO SCH (08:14)
[2022-12-10] MEDS: LACOSAMIDE 50 MG TABLET PO SCH ×2 (08:15→22:00)
[2022-12-10] MEDS: LITHIUM CARBONATE 300 MG TAB PO SCH ×2 (08:15→20:51)
[2022-12-10] MEDS: DESMOPRESSIN ACETATE 0.1 MG TAB PO SCH ×2 (08:16→20:51)
[2022-12-10] MEDS: LEVOTHYROXINE SODIUM 200 MCG TABLET PO SCH (08:16)
[2022-12-10] MEDS: ALFUZOSIN HCL 10 MG TAB PO SCH (08:16)
[2022-12-10 08:18] LABS: Albumin Globulin Ratio 1.9 (0.9-2); BUN Creatinine Ratio 13.8 (10-20); Creatinine Clr Calc Pharmacy 88.7 ml/min; Est GFR (African American) 88.7 ml/min; Est GFR (Non-African American) 76.5 ml/min; Globulin 1.9 gm/dl (2.5-4.0); Total Protein 5.5 gm/dl (6.0-8.3)
[2022-12-10] MEDS: MAGNESIUM SULFATE / D5W 1 GM/100 ML BAG IV SCH ×2 (09:00→12:29)
--- NOTE | 2022-12-10 10:31 | Electrocardiogram Report ---
Test Reason : Blood Pressure : / mmHG Vent. Rate : 086 BPM Atrial Rate : 086 BPM P-R Int : 144 ms QRS Dur : 094 ms QT Int : 390 ms P-R-T Axes : 046 -20 051 degrees QTc Int : 466 ms Normal sinus rhythm Nonspecific T wave abnormality When compared with ECG of 09-NOV-2022 16:25, No significant change was found Confirmed by Og Cooper ([id number]) on 12/10/2022 10:31:20 AM Referred By: REFERRED SELF Confirmed By:Og Cooper
--- NOTE | 2022-12-10 10:32 | Hospitalist Progress Note ---
Date of Service December 10, 2022 Assessment & Plan (1) Acute alteration in mental status: Plan: acute toxic encephalopathy due to benzodiazepine overdose not intent to harm but mis use, denies suicidal ideation again /12/10/22 (2) Benzodiazepine overdose: (3) S/P TURP (status post transurethral resection of prostate): Plan: recent TURP 12/06/22 urine culture and sensitivity Empiric treatment for potential complicated UTI with Zosyn 4.5 g IV every 8 hours urine culture not collected will transtion to po and complete 5 days empiracally Continue alfuzosin and dutasteride when taking po (4) DM type 2 (diabetes mellitus, type 2): Plan: chronic stable problem, with alteration in alertness and variable po intake will change to basal bolus insulin (5) Seizure disorder: Plan: chronic stable condition Challenging as medications are not able to convert to iv doses, hopeful to awaken to take po, if seizure will consider dose of Keppra also carries DX of PNES (6) Idiopathic polyneuropathy: (7) Panhypopituitarism: Plan: chronic stable, will need to alter dosing of medications as cannot take po at this time will give iv hydrocortisone, and iv desmopressin for Diabetes insipidus (8) Pituitary diabetes insipidus: (9) Pituitary hypogonadism: (10) Pituitary hypothyroidism: (11) Depression: Admission and Anticipated Discharge Date Admission Date: December 09, 2022 Subjective pt is awake and alert, states he may have had a seizure at home, no other issues at this time Physical Exam Physical Exam: The patient appeared stable Vital signs as documented. Lungs are clear to auscultation and appear unlabored Cardiac exam, Rhythm is regular.. No murmurs, rubs or gallops. Abdominal exam reveals normal bowel sounds, soft non tender, no masses Extremities pt has a walking boot right distal fibulae fracture Neurologic exam is alert and oriented, no focal loss of strength or sensation Skin is without bruises or rashes Psychologically is without concerns for anxiety or depression. Results & Data Results & Data ([facility]) Vital Signs (Past 12 Hours) Vital Signs Temp Pulse Resp BP Pulse Ox O2 Del Method 12/10/22 07:48 97.7 F 76 18 144/106 H 96 Room Air 12/10/22 02:54 97.7 F 71 16 130/84 94 Room Air 12/09/22 23:06 98.2 F 71 14 135/79 94 Room Air Diagnostic Findings Reviewed CBC with stable white count red count and platelets Reviewed chemistry panel with normal renal function electrolytes Reviewed liver function test these are also within normal limits PG Care Time/CCT Total # of Minutes Spent Total Time Spent with Patient: Total time spent is greater than 50% in coordination of care (as documented) at patient's floor/unit and/or counseling patient: Coding Level of Care Code 46990 SUB INP/OBS CARE 2/35MIN Diagnoses Acute alteration in mental status R41.82 Benzodiazepine overdose T42.4X1A S/P TURP (status post transurethral resection of prostate) Z90.79 DM type 2 (diabetes mellitus, type 2) E11.9 Seizure disorder G40.909 Idiopathic polyneuropathy G60.9 Panhypopituitarism E23.0 Pituitary diabetes insipidus E23.2 Pituitary hypogonadism E23.0 Pituitary hypothyroidism E03.8 Depression F32.9
--- NOTE | 2022-12-10 10:33 | Electrocardiogram Report ---
Test Reason : Blood Pressure : / mmHG Vent. Rate : 078 BPM Atrial Rate : 078 BPM P-R Int : 148 ms QRS Dur : 094 ms QT Int : 404 ms P-R-T Axes : 060 001 056 degrees QTc Int : 460 ms Normal sinus rhythm Normal ECG When compared with ECG of 09-DEC-2022 02:28, No significant change was found Confirmed by Og Cooper ([id number]) on 12/10/2022 10:33:44 AM Referred By: REFERRED SELF Confirmed By:Og Cooper
[2022-12-10] MEDS: DULoxetine HCL 60 MG CAP PO SCH (11:48)
[2022-12-10] MEDS: DULoxetine HCL 30 MG CAP PO SCH (11:49)
[2022-12-10] MEDS: PROPRANOLOL HCL 60 MG LA CAP PO SCH (20:50)
[2022-12-10] MEDS: PRAZOSIN HCL 1 MG CAP PO SCH (20:51)
[2022-12-10] MEDS ORDERED: HYDROCORTISONE 10 MG TAB PO SCH (21:00)
[2022-12-10] MEDS ORDERED: MIRTAZAPINE TAB 15 MG TAB PO SCH (21:00)
[2022-12-10] MEDS: DOCUSATE SODIUM 100 MG CAP PO SCH (22:00)
[2022-12-10 22:27] LABS: Appearance Urine Clear (Clear); Bacteria Urine Automated Negative (Negative); Bilirubin Urine Negative (Negative); Blood Urine 3+ (Negative); Color Urine Yellow; Glucose Urine UA Negative (Negative); Ketones Urine 1+ (Negative); Leukocyte Esterase Urine Negative (Negative); Nitrite Urine Negative (Negative); RBC Urine Automated >30 /hpf (0-4); Urobilinogen Urine Negative (Negative)
[2022-12-10 22:29] LABS: Protein Urine 2+ (Negative)
[2022-12-10] MEDS: ACETAMINOPHEN 325 MG TAB PO PRN (23:46)
[2022-12-11] MEDS: PIPERACILLIN/TAZOBACTAM 4.5 GM in DEXTROSE 5% 100 ML IV SCH ×2 (03:55→13:38)
[2022-12-11 06:40] LABS: Basophils # (auto) 0.06 K/uL (0-0.2); Basophils % (auto) 0.5 %; Eosinophils # (auto) 0.13 K/uL (0-0.50); Eosinophils % (auto) 1.1 %; Hematocrit (blood only) 37.9 % (40.1-51.0); Immature Granulocytes # (auto) 0.29 K/uL (0.00-0.02); Immature Granulocytes % (auto) 2.5 %; Lymphocytes % (auto) 34.9 %; Mean Corpuscular Hemoglobin 29.8 pg (25.0-34.0); Mean Corpuscular Hgb Conc 34.3 g/dL (32.0-36.0); Mean Corpuscular Volume 86.9 fL (80.0-100.0); Mean Platelet Volume 8.4 fL (9.4-12.4); Monocytes # (auto) 0.45 K/uL (0.24-0.82); Monocytes % (auto) 3.8 %; Neutrophils # (auto) 6.73 K/uL (1.4-6.5); Neutrophils % (auto) 57.2 %; Nucleated RBC # (auto) 0.02 K/uL (0-0); Nucleated RBC % (auto) 0.2 %; Platelet Count 231 K/uL (130-400); RDW Coefficient of Variation 15.1 % (11.5-14.5); RDW Standard Deviation 48.5 fL (36.4-46.3); Red Blood Count 4.36 M/uL (4.63-6.08); White Blood Count 11.76 K/ul (4.8-10.8)
[2022-12-11 07:09] LABS: Albumin Level 3.7 gm/dl (3.4-5.0); Bilirubin,Total 0.5 mg/dl (0.2-1.0); Calcium 8.1 mg/dl (8.5-10.1); Magnesium 2.2 mg/dl (1.7-2.4); Potassium 3.6 mmol/L (3.5-5.1)
[2022-12-11 07:15] LABS: Albumin Globulin Ratio 2.1 (0.9-2); BUN Creatinine Ratio 13.9 (10-20); Est GFR (African American) 83.2 ml/min; Est GFR (Non-African American) 71.7 ml/min; Globulin 1.8 gm/dl (2.5-4.0); Total Protein 5.5 gm/dl (6.0-8.3)
[2022-12-11] MEDS: INSULIN ASPART PER UNIT SC SCH ×2 (08:39→12:54)
[2022-12-11] MEDS: DOCUSATE SODIUM 100 MG CAP PO SCH (09:12)
[2022-12-11] MEDS: DESMOPRESSIN ACETATE 0.1 MG TAB PO SCH (09:15)
[2022-12-11] MEDS: ALFUZOSIN HCL 10 MG TAB PO SCH (09:15)
[2022-12-11] MEDS: DIVALPROEX DELAY RELEASE 500 MG TAB PO SCH (09:16)
[2022-12-11] MEDS: LITHIUM CARBONATE 300 MG TAB PO SCH (09:16)
[2022-12-11] MEDS: HYDROCORTISONE 10 MG TAB PO SCH (09:16)
[2022-12-11] MEDS: LEVOTHYROXINE SODIUM 200 MCG TABLET PO SCH (09:17)
[2022-12-11] MEDS: LACOSAMIDE 50 MG TABLET PO SCH (09:39)
[2022-12-11 09:47] LABS: 7-Aminoclonaz, Confirm NEGATIVE ng/mL (<25); Hydro-Alp Ur, GC/MS NEGATIVE ng/mL (<25); Hydroxyethylflurazepam, Conf NEGATIVE ng/mL (<50); Hydroxymidazolam Ur, GC/MS 161 ng/mL (<50); Hydroxytriazolam NEGATIVE ng/mL (<50); Lorazepam, Ur GC/MS >2000 ng/mL (<50); Nordiazepam, Confirm NEGATIVE ng/mL (<50); Oxazepam Ur, GC/MS NEGATIVE ng/mL (<50); Temazepam, Confirm NEGATIVE ng/mL (<50)
[2022-12-11] MEDS: ACETAMINOPHEN 325 MG TAB PO PRN (10:59)
[2022-12-11] MEDS: DULoxetine HCL 60 MG CAP PO SCH (11:00)
[2022-12-11] MEDS: DULoxetine HCL 30 MG CAP PO SCH (11:00)
--- NOTE | 2022-12-11 16:28 | Discharge Summary ---
Date of Service December 11, 2022 Admission HPI Per Admitting Provider The patient is a 52-year-old male with a past medical history including diabetes mellitus type 2, syncope and collapse, anxiety, mitral vegetation, migraine without aura, seizure disorder, idiopathic polyneuropathy, seizure-like activity, panhypopituitary is him, pseudoseizures, arachnoid cyst the posterior cranial fossa, CORINA, ulcerative colitis, mixed hyperlipidemia, pituitary diabetes insipidus, pituitary hypogonadism, pituitary hypothyroidism, depression, BPH with LUTS and sensorineural hearing loss of both ears. Patient was most recently admitted to [facility] from 12/06-12/07/2022 for a TURP procedure by urology. As noted above, he reported to ED staff that he took extra lorazepam pills so he could rest. The patient has come to the ED altered, sedated, confused, and suspected to combination of possible infection from recent TURP procedure, and taking additional benzodiazepines Principal Diagnosis encephalopathy from benzodiazepine overdose seizure disorder Discharge Exam Patient medical and appropriate no physical complaints still wearing his boot and has a cane for ambulation Discharge Data Allergies Allergy/AdvReac Type Severity Reaction Status Date / Time clindamycin Allergy Intermediate SWELLING Verified 12/09/22 02:39 Iodinated Contrast Media Allergy Intermediate face/eye Verified 12/09/22 02:39 swelling Quinolones Allergy Intermediate HIVES Verified 12/09/22 02:39 Consultations 12/09/22 05:30 ED Decision to Admit Stat Ordered Studies 12/09/22 02:33 CT head/brain wo con Stat Hospital Course (1) Acute alteration in mental status: acute toxic encephalopathy due to benzodiazepine overdose not intent to harm but mis use, denies suicidal ideation again /12/11/22 (2) Benzodiazepine overdose: (3) S/P TURP (status post transurethral resection of prostate): recent TURP 12/06/22 urine culture and sensitivity Urinary tract infection ruled out Continue alfuzosin and dutasteride when taking po (4) DM type 2 (diabetes mellitus, type 2): chronic stable problem, with alteration in alertness and variable po intake will change to basal bolus insulin (5) Seizure disorder: chronic stable condition Challenging as medications are not able to convert to iv doses, hopeful to awaken to take po, if seizure will consider dose of Keppra also carries DX of PNES (6) Idiopathic polyneuropathy: (7) Panhypopituitarism: chronic stable, will need to alter dosing of medications as cannot take po at this time will give iv hydrocortisone, and iv desmopressin for Diabetes insipidus (8) Pituitary diabetes insipidus: (9) Pituitary hypogonadism: (10) Pituitary hypothyroidism: (11) Depression: Total Time Total Time Spent Total Time Spent (In Minutes): It required greater than 30 minutes to prepare this patient for discharge Discharge Plan Discharge Items Patient Disposition: Home - Self-Care Reason For Visit: ALTERED MENTATION, BENZODIAZEPINE OVERDOSE Discharge Diagnosis: benzodiazepine induced sedation Activity: Resume your previous activity Non-emergency contact: Primary Care Provider Call non-emergency contact if: your symptoms worsen Follow-up/Referrals: Pro,Larry Crisostomo MD [Primary Care Provider] - Diet: Carb Consistent or DM2 Addtl Attending Provider Instructions: Please only take your medicines as prescribed follow up with your orthopedic doctor for your ankle fracture Pending Studies at Discharge: No Stand-Alone Forms: My [employer], Pain - Opioid Pain Management, Smoking Cessation Medications and DC Order Prescriptions: Continued fluticasone propionate [Flonase Allergy Relief] 50 mcg/actuation spray,suspension 1 spray intranasal HS PRN (Reason: allergy symptoms) Qty: 16 0RF Rx Instructions: administer into each nostril Botox 200 unit recon soln See Rx Instructions IM .COMPLEX Qty: 1 3RF Rx Instructions: 155 UNITS IM IN THE FACE AND NECK MUSCLES EVERY 12 WEEKS PER MIGRAINE PROTOCOL testosterone 20.25 mg/1.25 gram (1.62 %) gel in metered-dose pump 2 pump TOP PM Qty: 75 5RF Rx Instructions: apply 1 pump amount over max area of EACH upper arm and shoulder PDMP Queried ok to fill 05-27-22 DS lithium carbonate 300 mg tablet 300 mg PO AMHS trazodone 100 mg tablet 100 mg PO HS Norditropin FlexPro 5 mg/1.5 mL (3.3 mg/mL) pen injector 0.3 mg SQ PM Qty: 3 11RF dutasteride [Avodart] 0.5 mg capsule 0.5 mg PO QAM Qty: 90 3RF alfuzosin 10 mg tablet extended release 24 hr 10 mg PO QAM Qty: 90 3RF Rx Instructions: TAKE THIS MED AFTER A MEAL insulin glargine [Lantus Solostar U-100 Insulin] 100 unit/mL (3 mL) insulin pen 10 unit subcut QPM Qty: 15 3RF atorvastatin 10 mg tablet 10 mg PO QAM 90 Days Qty: 90 0RF lacosamide [Vimpat] 50 mg tablet See Rx Instructions .ROUTE .COMPLEX Qty: 90 5RF Rx Instructions: 1 tab po in AM and 2 tabs po in PM; furosemide 40 mg tablet 40 mg PO QAM Qty: 90 3RF lisinopril 5 mg tablet 5 mg PO QDL Qty: 90 3RF meclizine 25 mg tablet 25 mg PO AMPM Qty: 180 3RF metformin 1,000 mg tablet 1,000 mg PO AMPM Qty: 180 3RF propranolol 120 mg capsule,extended release 24 hr 120 mg PO QPM Qty: 90 1RF peg 3350-electrolytes [GaviLyte-G] 236-22.74-6.74 -5.86 gram recon soln 240 ml PO Q10M Qty: 4000 0RF Rx Instructions: until fecal effluent is clear cyclobenzaprine 10 mg tablet 10 mg PO BID PRN (Reason: muscle spasm) 30 Days Qty: 60 1RF prednisone 5 mg tablet 5 mg PO DIRECTED Rx Instructions: PER PT "ON AND OFF REGIMENT HE FOLLOWS". (DME) OneTouch Verio test strips Strip See Rx Instructions .Route Rx Instructions: Test blood sugar two times daily Rexulti 3 mg tablet 3 mg PO QAM duloxetine 30 mg capsule,delayed release(DR/EC) 30 mg PO QDL Rx Instructions: TOTAL DOSE 90 MG--TAKES WITH 60 MG CAP. mirtazapine [Remeron] 30 mg tablet 30 mg PO HS celecoxib 200 mg capsule 200 mg PO DAILY PRN (Reason: Pain) lorazepam 0.5 mg tablet 1 mg PO HS Rx Instructions: from psychiatrist 09/04/21 Nurtec ODT 75 mg tablet,disintegrating 75 mg PO DAILY PRN (Reason: Migraine Headache) oxycodone 5 mg tablet 5 mg PO Q6H PRN (Reason: pain) Qty: 8 0RF prazosin [Minipress] 5 mg capsule 5 mg PO HS levothyroxine 200 mcg tablet 200 mcg PO QAM duloxetine 60 mg capsule,delayed release(DR/EC) 60 mg PO QDL Rx Instructions: TOTAL DOSE 90 MG--TAKES WITH 30 MG CAP. cholecalciferol (vitamin D3) 50 mcg (2,000 unit) capsule 50 mcg PO QPM oxycodone-acetaminophen [Percocet] 7.5-325 mg tablet 1 tab PO Q8H PRN (Reason: pain) Qty: 7 0RF albuterol sulfate 90 mcg/actuation HFA aerosol inhaler 1 inh inhalation QID PRN (Reason: Shortness Of Breath Or Wheezing) gabapentin 400 mg capsule See Rx Instructions .ROUTE .COMPLEX Rx Instructions: 400 mg orally; TAKES 400 MG QAM AND AFTERNOON, THEN 800 MG HS. acetaminophen 325 mg Tablet 650 mg PO Q6H PRN (Reason: pain) Qty: 30 0RF hydrocortisone 10 mg tablet 20 mg PO BID Rx Instructions: TAKE TWO TABLETS IN THE AM AND 1 TABLET IN THE PM. MAY DOUBLE THE DOSE IN TIMES OF STRESS. phenazopyridine [Pyridium] 200 mg tablet 200 mg PO Q8H PRN (Reason: pain) Qty: 10 0RF oxybutynin chloride 5 mg tablet 5 mg PO Q8H PRN (Reason: bladder spasms) Qty: 20 0RF pantoprazole [Protonix] 40 mg tablet,delayed release (DR/EC) 40 mg PO QAM desmopressin [DDAVP] 0.1 mg tablet 0.4 mg PO BID docusate sodium [Colace] 100 mg capsule 100 mg PO BID Qty: 60 0RF Rx Instructions: Take twice daily for 2 weeks, then as needed for constipation. divalproex 500 mg Tablet,Delayed Release (Dr/Ec) 1,000 mg PO BID 30 Days Qty: 120 0RF Discharge Orders: Discharge Order (Routine); Ordered 12/11/22 Ordered By: Talha Chin/Other Patient Handouts: Meds Safe Use Dc Admission Data Admit Date/Time: 12/10/22 16:23 Attending Provider: Talha Willingham Admit Provider: Krishna Ronquillo Primary Care Provider: Larry Amaral Other Providers: Krishna Ronquillo Other Interventions: Discharge Summary Assessment (RN) Last Done: 12/11/22 13:21 Coding Level of Care Code HOSP INP/OBS DISCH >30 MIN Diagnoses Acute alteration in mental status R41.82 Benzodiazepine overdose T42.4X1A S/P TURP (status post transurethral resection of prostate) Z90.79 DM type 2 (diabetes mellitus, type 2) E11.9 Seizure disorder G40.909 Idiopathic polyneuropathy G60.9 Panhypopituitarism E23.0 Pituitary diabetes insipidus E23.2 Pituitary hypogonadism E23.0 Pituitary hypothyroidism E03.8 Depression F32.9
== END 2022-12-11 14:00 | disposition home health service (06) | DRG 917 ==
LOC: 2E 02:19 → ED 02:19 → SUATTDRO 06:24 → 2E 07:39 → 3W 12-10 21:22

== ENCOUNTER 2022-12-27 15:55 | Observation (INO) ==
--- NOTE | 2022-12-27 16:38 | Emergency Department Note ---
Impression & Plan Atypical chest pain, Confusion, Hypernatremia ED Provider Note Provider: Travis Tillman MD DATE OF SERVICE: 12/27/2022 CHIEF COMPLAINT: Confusion, chest pain HISTORY OF PRESENT ILLNESS: Patient is a 52-year-old gentleman history of type 2 diabetes, syncope, seizures and seizure-like activity, panhypopituitarism with a history of arachnoid cyst, ulcerative colitis, and BPH presenting here today via ambulance from his home. Reports apparently last night he had onset of some discomfort in his chest and some slurring of the speech. His home health aide noticed him being confused and off today according EMS report and was brought here for further evaluation. Patient denies falling but states he did not sleep well. Denies use of any illicit drugs or alcohol stick he has been taking his medications prescribed. Denies any falls or trauma. Patient denies significant abdominal pain. Was able to ambulate to the bathroom here but unsteady according to nursing staff. Patient states he feels fatigued. PAST MEDICAL HISTORY: As noted above MEDICATIONS: Reviewed medications, patient present with his medication packs SOCIAL HISTORY: Lives at home alone PHYSICAL EXAM: GENERAL: alert to verbal stimuli resting otherwise with eyes closed, and oriented in no acute distress on stretcher but requires stimulation to stay awake Head: normocephalic and atraumatic EYES: No injection, discharge or icterus. Requires frequent redirection to keep his eyes open for evaluation but PERRL, EOMI. NECK: Trachea midline. Supple without midline cervical tenderness ENT: Mucous membranes pink and moist. LUNGS: Airway patent. No retractions. Breath sounds clear with good air entry bilaterally. HEART: Regular rate and rhythm. No chest wall tenderness ABDOMEN: Soft and non-tender, without guarding or rebound. SKIN: Acyanotic, warm, dry, without rashes EXTREMITIES: Without swelling, tenderness or deformity NEUROLOGICAL: Perhaps slight right facial deficit but no other focal numbness or weakness to the extremities. Somewhat unsteady with ambulation. No significant aphasia but somewhat slow to respond at times. EK bpm some slight artifact but no evidence of PVC or PAC. No acute ST segment elevation or depression with a QTc of 460. CONTINUOUS CARDIAC MONITORING: was ordered and showed a heart rate of 80s-90s bpm in normal sinus rhythm Patient's laboratory studies and imaging reviewed. Differential includes Infection, dehydration, metabolic abnormality, hypo/hyperglycemia, electrolyte disturbance, anemia, hypoxia, cardiac sources, intracerebral event, toxicologic, neurologic, as well as other pathologies. IMPRESSION/MEDICAL DECISION MAKING: Patient drowsy some confusion slightly or speech upon presentation. Patient denies any trauma or illicit drug use or alcohol usage. Admission several weeks ago here for review of records similar presentation but denies any benzodiazepine use illicitly today. Reports some pain in the chest but denies significant abdominal pain. Denies numbness or tingling extremities to me. Patient denies any recent seizures. Is unsteady with ambulation here. History of arachnoid cyst and pituitary issues previously. CT head obtained as well as basic blood work and medical alcohol and UDS. Benign abdomen. EKG obtained wit hout significant acute cardiac findings. Troponin was sent. Not hypoxic here. Doubt this is hypercarbia. Blood work with slight leukocytosis similar to previous. Slightly improved minimal anemia. Normal platelet count. Slight hypernatremia of 147 noted but not enough to explain confusion. Stable renal function. Given some IV fluids. Magnesium slightly low at 1.6. No severe transaminitis noted. No troponin elevation and doubt ACS. Free T4 within normal limits. No evidence of acute UTI. UDS not registering any positives. Unsure why the patient is still a bit lethargic and fatigued with a negative alcohol level here. CT of the head per radiology without evidence of acute change or hydrocephalus. Discussed with the patien. Given that he still appears somewhat confused and needed. I discussed further care with him here and he is in agreement. He lives alone and would not be safe to discharge him at this time. Hospitalist was contacted and discussed I discussed the case with him. DIAGNOSIS: Atypical chest pain, confusion, hyponatremia DISPOSITION: Hospitalist will evaluate Patient was agreeable with this plan. Past Med/Surg History Medical History Acute kidney injury September 2022 (s/p grand mal seizure) Bladder mass benign BPH with obstruction/lower urinary tract symptoms Depression DM type 2 (diabetes mellitus, type 2) Growth hormone deficiency History of COVID-19 10/2021 - fatigue; resolved. Hx of fracture of foot Sep 2022- right > cast present Insomnia Kidney stones HX Lower extremity edema Lumbar radiculopathy Lumbar spine pain Migraine without aura and without status migrainosus, not intractable Mitral valve regurgitation follows with Dr. Phillips Obstructive sleep apnea of adult cpap Pituitary diabetes insipidus Follows with endocrinology- on DDAVP Pituitary hypogonadism Follows with endocrinology- Pituitary hypothyroidism Follows with endocrinology- Pituitary neoplasm Dx'ed in 2001- s/p surgical resection and XRT Repeat surgery in 2015 secondary to tumor regrowth Presence of cardiac device Loop recorder > last checked summer 2021 Prostate mass benign Rectal bleeding still present Secondary adrenal insufficiency Seizure disorder last seizure grand mal and petite mal on Oct 01, 2022 > follows with Dr. Ordonez and goes to neurology at [facility], unsure of MD's name Sensorineural hearing loss of both ears SOB (shortness of breath) on exertion Syncope and collapse Reason for loop recorder No recent issues since bed bound from femur fracture in Sep 2022 per patient Tremor Surgical History History of bladder surgery remove mass History of brain surgery x2---[place] @ [facility] [place], [place] @ [facility]--for brain tumors > caused epilepsy History of cardiac cath 07/2021 - no stents History of colonoscopy History of esophagogastroduodenoscopy (EGD) History of lithotripsy [place] [facility] [place] History of prostate surgery remove mass History of tooth extraction History of wisdom tooth extraction S/P epidural steroid injection Status post right foot surgery replaced 5th metatarsal--hardware in place Family History Grandmother (Paternal) Family history of diabetes mellitus Aunt Family history of diabetes mellitus Uncle Family history of diabetes mellitus Father Prostate cancer Heart disease Mother Cardiac disorder Grandmother (Maternal) Myocardial infarction Other Asthma Cancer Hypertension No family history of adverse response to anesthesia No family history of bleeding disorder Stroke Denies family history of Ovarian cancer Breast cancer Colorectal cancer Social History Smoking Status: Never smoker Tobacco Type: Smokeless Tobacco (Dip or Chew) Second Hand Exposure: Yes; Hx Substance Use: No Preferred Language: Mauritanian Communication Ability: Effective Visual Impairment: No Limitations Hearing Ability: Normal Manager Community Development Required: No Beliefs That Will Affect Care: None marital status: Single Current Living Situation: Alone current occupational status: unemployed Feels Safe at Home: Yes Childhood Exposure to Second-Hand Smoke: Yes (parents smoked) Seatbelt Use: always Assistive Devices: Special Shoe and Walker Allergies Allergies Allergy/AdvReac Type Severity Reaction Status Date / Time clindamycin Allergy Intermediate SWELLING Verified 12/22/22 14:51 Iodinated Contrast Media Allergy Intermediate face/eye Verified 12/22/22 14:51 swelling Quinolones Allergy Intermediate HIVES Verified 12/22/22 14:51 Home Meds Home Medications Medication Instructions Recorded Confirmed albuterol sulfate 90 mcg/actuation 1 inh inhalation QID PRN Shortness 07/28/21 12/27/22 aerosol inhaler Of Breath Or Wheezing gabapentin 400 mg capsule See Rx Instructions .Route .COMPLEX 08/11/21 12/27/22 lorazepam 0.5 mg tablet 0.5 mg PO QPM PRN Anxiety 09/04/21 12/27/22 lithium carbonate 300 mg tablet 300 mg PO AMHS 06/04/22 12/27/22 trazodone 100 mg tablet 100 mg PO HS 06/04/22 12/27/22 brexpiprazole 3 mg tablet (Rexulti) 3 mg PO QAM 06/23/22 12/27/22 celecoxib 200 mg capsule 200 mg PO DAILY PRN Pain 06/23/22 12/27/22 duloxetine 30 mg capsule,delayed 30 mg PO QDL 06/23/22 12/27/22 release mirtazapine 30 mg tablet (Remeron) 30 mg PO HS 06/23/22 12/27/22 blood sugar diagnostic (OneTouch 08/06/22 12/27/22 Verio test strips) cholecalciferol (vitamin D3) 50 50 mcg PO QPM 11/09/22 12/27/22 mcg (2,000 unit) capsule duloxetine 60 mg capsule,delayed 60 mg PO QDL 11/09/22 12/27/22 release levothyroxine 200 mcg tablet 200 mcg PO QAM 11/09/22 12/27/22 prazosin 5 mg capsule (Minipress) 5 mg PO HS 11/09/22 12/27/22 hydrocortisone 10 mg tablet 20 mg PO BID 11/29/22 12/27/22 desmopressin 0.1 mg tablet (DDAVP) 0.4 mg PO BID 12/06/22 12/27/22 pantoprazole 40 mg tablet,delayed 40 mg PO QAM 01/16/23 02/06/23 release (Protonix) docusate sodium 100 mg capsule 100 mg PO BID PRN Constipation 12/27/22 12/27/22 (Colace) Previous Rx's Medication Instructions Recorded cyclobenzaprine 10 mg tablet 10 mg PO BID PRN muscle spasm 30 09/18/20 days #60 tabs fluticasone propionate 50 1 spray intranasal HS PRN allergy 10/23/21 mcg/actuation nasal symptoms #16 grams spray,suspension (Flonase Allergy Relief) onabotulinumtoxinA 200 unit See Rx Instructions IM .COMPLEX #1 12/25/21 solution for injection (Botox) ea acetaminophen 325 mg tablet 650 mg PO Q6H PRN pain #30 tabs 03/01/22 testosterone 2 pump topical PM #75 grams 05/27/22 somatropin 5 mg/1.5 mL (3.3 mg/mL) 0.3 mg (0.09 mL) subcut PM #3 mL 06/04/22 subcutaneous pen injector (Norditropin FlexPro) alfuzosin 10 mg tablet,extended 10 mg PO QAM #90 tabs 08/05/22 release 24 hr dutasteride 0.5 mg capsule 0.5 mg PO QAM #90 caps 08/05/22 (Avodart) insulin glargine 100 unit/mL (3 10 unit (0.1 mL) subcut QPM #15 mL 08/06/22 mL) subcutaneous pen (Lantus Solostar U-100 Insulin) Vimpat 50 mg tablet (lacosamide) See Rx Instructions .Route 09/03/22 .COMPLEX #90 tabs furosemide 40 mg tablet 40 mg PO QAM #90 tabs 11/18/22 lisinopril 5 mg tablet 5 mg PO QDL #90 tabs 11/18/22 meclizine 25 mg tablet 25 mg PO AMPM #180 tabs 11/18/22 metformin 1,000 mg tablet 1,000 mg PO AMPM #180 tabs 11/18/22 oxybutynin chloride 5 mg tablet 5 mg PO Q8H PRN bladder spasms #20 12/06/22 tabs phenazopyridine 200 mg tablet 200 mg PO Q8H PRN pain #10 tabs 12/06/22 (Pyridium) oxycodone-acetaminophen 7.5 mg-325 1 tab PO Q8H PRN pain #7 tabs 12/11/22 mg tablet (Percocet) atorvastatin 10 mg tablet 10 mg PO QAM 90 days #90 tabs 12/15/22 divalproex 500 mg tablet,delayed 1,000 mg PO BID 30 days #120 tabs 12/21/22 release lacosamide 100 mg tablet (Vimpat) 100 mg PO BID #60 tabs 12/21/22 propranolol 120 mg capsule,24 120 mg PO QPM #90 caps 12/21/22 hr,extended release rimegepant 75 mg disintegrating 75 mg PO DAILY PRN Migraine 12/21/22 tablet (Nurtec ODT) Headache #8 tabs Results & Data (ED) Vital Signs Vital Signs - 24 hr 12/27/22 16:13 12/27/22 16:08 12/27/22 16:30 Temperature 36.7 C Temperature Source Oral Pulse Rate 94 H 94 H 94 H Pulse Rate from SpO2 Sensor 94 H Pulse Rhythm Regular Pulse Strength Normal Respiratory Rate 20 19 15 Respiratory Effort / Characteristics Non-Labored Spontaneous Respiratory Depth Normal Respiratory Pattern Regular Blood Pressure 149/92 H Blood Pressure Mean 111 Blood Pressure Position Lying Pulse Oximetry 95 93 Oxygen Delivery Method Room Air Sepsis Recent Fever Within 48 Hours No Sepsis New/Unexplained Change in Mental Status N/A Sepsis Action Taken by Nursing No Action Required 12/27/22 16:53 12/27/22 16:53 12/27/22 17:00 Temperature Temperature Source Pulse Rate Pulse Rate from SpO2 Sensor 91 H Pulse Rhythm Pulse Strength Respiratory Rate Respiratory Effort / Characteristics Respiratory Depth Respiratory Pattern Blood Pressure 138/81 135/82 Blood Pressure Mean 100 99 Blood Pressure Position Pulse Oximetry 92 Oxygen Delivery Method Sepsis Recent Fever Within 48 Hours Sepsis New/Unexplained Change in Mental Status Sepsis Action Taken by Nursing 12/27/22 17:00 12/27/22 17:02 12/27/22 17:30 Temperature Temperature Source Pulse Rate Pulse Rate from SpO2 Sensor 90 94 H Pulse Rhythm Pulse Strength Respiratory Rate Respiratory Effort / Characteristics Respiratory Depth Respiratory Pattern Blood Pressure 139/88 Blood Pressure Mean 105 Blood Pressure Position Pulse Oximetry 90 93 Oxygen Delivery Method Sepsis Recent Fever Within 48 Hours Sepsis New/Unexplained Change in Mental Status Sepsis Action Taken by Nursing 12/27/22 18:00 12/27/22 18:01 12/27/22 18:03 Temperature Temperature Source Pulse Rate Pulse Rate from SpO2 Sensor 82 Pulse Rhythm Pulse Strength Respiratory Rate Respiratory Effort / Characteristics Respiratory Depth Respiratory Pattern Blood Pressure 139/86 Blood Pressure Mean 103 Blood Pressure Position Pulse Oximetry 79 L 81 L Oxygen Delivery Method Sepsis Recent Fever Within 48 Hours Sepsis New/Unexplained Change in Mental Status Sepsis Action Taken by Nursing Laboratory Data 12/27/22 16:30 12/27/22 16:30 Lab Results 12/27/22 12/27/22 12/27/22 Range/Units 16:30 16:30 16:30 WBC 12.84 H (4.8-10.8) K/ul RBC 4.36 L (4.70-6.10) M/uL Hgb 13.3 L (14.0-18.0) g/dl Hct 39.2 L (42.0-52.0) % MCV 89.9 (80.0-100.0) fL MCH 30.5 (25.0-34.0) pg MCHC 33.9 (32.0-36.0) g/dL RDW Std Deviation 47.5 H (36.4-46.3) fL RDW Coeff of Yanira 14.6 H (11.5-14.5) % Plt Count 161 (130-400) K/uL MPV 8.6 L (9.4-12.4) fL Immature Gran % (Auto) 5.4 % Neut % (Auto) 74.4 % Lymph % (Auto) 11.1 % B[place] % (Auto) 7.3 % Eos % (Auto) 0.9 % Baso % (Auto) 0.9 % Neut # (Auto) 9.55 H (1.40-6.50) K/uL Lymph # (Auto) 1.43 (1.2-3.4) K/uL Bingham # (Auto) 0.94 H (0.11-0.59) K/uL Eos # (Auto) 0.12 (0-0.50) K/uL Baso # (Auto) 0.11 (0-0.2) K/uL Immature Gran # (Auto) 0.69 H (0.01-0.20) K/uL Absolute Nucleated RBC 0.02 (0-0.12) K/uL Nucleated RBC % (auto) 0.2 % PT 10.9 (9.0-12.0) Seconds INR 1.0 (0.9-1.1) Sodium 147 H (136-145) mmol/L Potassium 3.2 L (3.5-5.1) mmol/L Chloride 102 (98-107) mmol/L Carbon Dioxide 35 H (21-32) mmol/L Anion Gap 10 (3-11) BUN 11 (6-23) mg/dl Creatinine 1.05 (0.6-1.4) mg/dl Est Cr Clr Drug Dosing 102.2 ml/min Est GFR ( Amer) 92.8 ml/min Est GFR (Non-Af Amer) 80.1 ml/min BUN/Creatinine Ratio 10.5 (10-20) Glucose 131 H (70-99(Fasting)) mg/dl Calcium 10.2 H (8.5-10.1) mg/dl Magnesium 1.6 L (1.7-2.4) mg/dl Total Bilirubin 0.4 (0.2-1.0) mg/dl AST 10 L (13-39) U/L ALT 12 (7-52) U/L Alkaline Phosphatase 63 (34-104) U/L Total Creatine Kinase 31 (30-223) U/L Troponin I High Sens 4.9 (0-20) pg/ml Total Protein 7.1 (6.0-8.3) gm/dl Albumin 4.3 (3.4-5.0) gm/dl Globulin 2.8 (2.5-4.0) gm/dl Albumin/Globulin Ratio 1.5 (0.9-2) TSH (0.300-4.500) uIu/ml Free T4 (0.61-1.60) ng/dl Urine Color Urine Appearance (Clear) Urine pH (4.5-7.5) Ur Specific Sallis (1.000-1.030) Urine Protein (Negative) Urine Glucose (UA) (Negative) Urine Ketones (Negative) Urine Blood (Negative) Urine Nitrite (Negative) Urine Bilirubin (Negative) Urine Urobilinogen (Negative) Ur Leukocyte Esterase (Negative) Urine WBC (Auto) (0-5) /hpf Urine RBC (Auto) (0-4) /hpf U Hyaline Cast (Auto) (0-5) /lpf U Epithel Cells (Auto) (0-5) /lpf Urine Bacteria (Auto) (Negative) Urine Opiates Screen (Neg) Ur Methadone, Qual (Neg) Urine Barbiturates (Neg) Ur Phencyclidine (PCP) (Neg) U Amphetamin/Meth Scrn (Neg) MDMA (Ecstasy) Screen (Neg) U Benzodiazepines Scrn (Neg) Ur Cocaine Metabolite (Neg) U Marijuana (THC) Screen (Neg) Ethyl Alcohol mg/dL (<10.0) mg/dl SARS-CoV-2, RNA, NAAT (NEGATIVE) 12/27/22 12/27/22 12/27/22 Range/Units 16:30 16:30 16:53 WBC (4.8-10.8) K/ul RBC (4.70-6.10) M/uL Hgb (14.0-18.0) g/dl Hct (42.0-52.0) % MCV (80.0-100.0) fL MCH (25.0-34.0) pg MCHC (32.0-36.0) g/dL RDW Std Deviation (36.4-46.3) fL RDW Coeff of Yanira (11.5-14.5) % Plt Count (130-400) K/uL MPV (9.4-12.4) fL Immature Gran % (Auto) % Neut % (Auto) % Lymph % (Auto) % Bingham % (Auto) % Eos % (Auto) % Baso % (Auto) % Neut # (Auto) (1.40-6.50) K/uL Lymph # (Auto) (1.2-3.4) K/uL Bingham # (Auto) (0.11-0.59) K/uL Eos # (Auto) (0-0.50) K/uL Baso # (Auto) (0-0.2) K/uL Immature Gran # (Auto) (0.01-0.20) K/uL Absolute Nucleated RBC (0-0.12) K/uL Nucleated RBC % (auto) % PT (9.0-12.0) Seconds INR (0.9-1.1) Sodium (136-145) mmol/L Potassium (3.5-5.1) mmol/L Chloride (98-107) mmol/L Carbon Dioxide (21-32) mmol/L Anion Gap (3-11) BUN (6-23) mg/dl Creatinine (0.6-1.4) mg/dl Est Cr Clr Drug Dosing ml/min Est GFR ( Amer) ml/min Est GFR (Non-Af Amer) ml/min BUN/Creatinine Ratio (10-20) Glucose (70-99(Fasting)) mg/dl Calcium (8.5-10.1) mg/dl Magnesium (1.7-2.4) mg/dl Total Bilirubin (0.2-1.0) mg/dl AST (13-39) U/L ALT (7-52) U/L Alkaline Phosphatase (34-104) U/L Total Creatine Kinase (30-223) U/L Troponin I High Sens (0-20) pg/ml Total Protein (6.0-8.3) gm/dl Albumin (3.4-5.0) gm/dl Globulin (2.5-4.0) gm/dl Albumin/Globulin Ratio (0.9-2) TSH 0.055 L (0.300-4.500) uIu/ml Free T4 0.76 (0.61-1.60) ng/dl Urine Color Urine Appearance (Clear) Urine pH (4.5-7.5) Ur Specific Sallis (1.000-1.030) Urine Protein (Negative) Urine Glucose (UA) (Negative) Urine Ketones (Negative) Urine Blood (Negative) Urine Nitrite (Negative) Urine Bilirubin (Negative) Urine Urobilinogen (Negative) Ur Leukocyte Esterase (Negative) Urine WBC (Auto) (0-5) /hpf Urine RBC (Auto) (0-4) /hpf U Hyaline Cast (Auto) (0-5) /lpf U Epithel Cells (Auto) (0-5) /lpf Urine Bacteria (Auto) (Negative) Urine Opiates Screen (Neg) Ur Methadone, Qual (Neg) Urine Barbiturates (Neg) Ur Phencyclidine (PCP) (Neg) U Amphetamin/Meth Scrn (Neg) MDMA (Ecstasy) Screen (Neg) U Benzodiazepines Scrn (Neg) Ur Cocaine Metabolite (Neg) U Marijuana (THC) Screen (Neg) Ethyl Alcohol mg/dL < 10.0 (<10.0) mg/dl SARS-CoV-2, RNA, NAAT NEGATIVE (NEGATIVE) 02/06/23 02/06/23 Range/Units 17:06 17:06 WBC (4.8-10.8) K/ul RBC (4.70-6.10) M/uL Hgb (14.0-18.0) g/dl Hct (42.0-52.0) % MCV (80.0-100.0) fL MCH (25.0-34.0) pg MCHC (32.0-36.0) g/dL RDW Std Deviation (36.4-46.3) fL RDW Coeff of Yanira (11.5-14.5) % Plt Count (130-400) K/uL MPV (9.4-12.4) fL Immature Gran % (Auto) % Neut % (Auto) % Lymph % (Auto) % B[place] % (Auto) % Eos % (Auto) % Baso % (Auto) % Neut # (Auto) (1.40-6.50) K/uL Lymph # (Auto) (1.2-3.4) K/uL Bingham # (Auto) (0.11-0.59) K/uL Eos # (Auto) (0-0.50) K/uL Baso # (Auto) (0-0.2) K/uL Immature Gran # (Auto) (0.01-0.20) K/uL Absolute Nucleated RBC (0-0.12) K/uL Nucleated RBC % (auto) % PT (9.0-12.0) Seconds INR (0.9-1.1) Sodium (136-145) mmol/L Potassium (3.5-5.1) mmol/L Chloride (98-107) mmol/L Carbon Dioxide (21-32) mmol/L Anion Gap (3-11) BUN (6-23) mg/dl Creatinine (0.6-1.4) mg/dl Est Cr Clr Drug Dosing ml/min Est GFR ( Amer) ml/min Est GFR (Non-Af Amer) ml/min BUN/Creatinine Ratio (10-20) Glucose (70-99(Fasting)) mg/dl Calcium (8.5-10.1) mg/dl Magnesium (1.7-2.4) mg/dl Total Bilirubin (0.2-1.0) mg/dl AST (13-39) U/L ALT (7-52) U/L Alkaline Phosphatase (34-104) U/L Total Creatine Kinase (30-223) U/L Troponin I High Sens (0-20) pg/ml Total Protein (6.0-8.3) gm/dl Albumin (3.4-5.0) gm/dl Globulin (2.5-4.0) gm/dl Albumin/Globulin Ratio (0.9-2) TSH (0.300-4.500) uIu/ml Free T4 (0.61-1.60) ng/dl Urine Color Yellow Urine Appearance Clear (Clear) Urine pH 7.0 (4.5-7.5) Ur Specific Sallis 1.004 (1.000-1.030) Urine Protein Negative (Negative) Urine Glucose (UA) Negative (Negative) Urine Ketones Negative (Negative) Urine Blood 2+ H (Negative) Urine Nitrite Negative (Negative) Urine Bilirubin Negative (Negative) Urine Urobilinogen Negative (Negative) Ur Leukocyte Esterase Negative (Negative) Urine WBC (Auto) 1-5 (0-5) /hpf Urine RBC (Auto) 0-4 (0-4) /hpf U Hyaline Cast (Auto) 0 (0-5) /lpf U Epithel Cells (Auto) 0-5 (0-5) /lpf Urine Bacteria (Auto) Negative (Negative) Urine Opiates Screen Neg (Neg) Ur Methadone, Qual Neg (Neg) Urine Barbiturates Neg (Neg) Ur Phencyclidine (PCP) Neg (Neg) U Amphetamin/Meth Scrn Neg (Neg) MDMA (Ecstasy) Screen Neg (Neg) U Benzodiazepines Scrn Neg (Neg) Ur Cocaine Metabolite Neg (Neg) U Marijuana (THC) Screen Neg (Neg) Ethyl Alcohol mg/dL (<10.0) mg/dl SARS-CoV-2, RNA, NAAT (NEGATIVE) Administered Medications Magnesium Sulfate/Dextrose (Magnesium Sulfate / D5w) 1 gm in 100 mls @ 50 mls/hr IV Q2H OBDULIO Stop: 12/27/22 22:29 Last Admin: 12/27/22 18:52 Dose: 50 mls/hr Documented By: [id number] Discontinued Medications Lactated Ringer's (Lr) 500 mls @ 999 mls/hr IV .Q31M ONE Stop: 12/27/22 17:59 Last Infusion: 12/27/22 18:41 Dose: 0 mls/hr Documented By: [id number] Admin: 12/27/22 17:52 Dose: 999 mls/hr Documented By: [id number] Potassium Chloride (K Jonathan / Wtr) 10 meq in 100 mls @ 100 mls/hr IV Q1H OBDULIO Stop: 12/27/22 21:29 Last Admin: 12/27/22 19:53 Dose: 100 mls/hr Documented By: [id number] Infusion: 12/27/22 19:52 Dose: 100 mls/hr Documented By: [id number] Admin: 12/27/22 18:52 Dose: 100 mls/hr Documented By: [id number] Imaging Data Radiologist's Impression: Chest X-Ray 12/27/22 16:20 SINGLE VIEW CHEST CLINICAL HISTORY: Change in mental status. Generalized weakness. FINDINGS: An AP, portable, upright chest radiograph is compared to study dated 12/09/2022 and correlated with chest CT dated 10/04/2019. The heart is enlarged noting atherosclerotic calcification of the thoracic aorta. The pulmonary vasculature is noncongested. There are bibasilar airspace opacities. No large pleural effusion or pneumothorax is seen. There is chronic posttraumatic deformity of the left clavicle. IMPRESSION: 1. Cardiomegaly without radiographic evidence of congestive failure. 2. Bibasilar airspace opacities likely represent atelectasis. Correlate clinically for evidence of a superimposed infectious/inflammatory pneumonitis. ACT 112: Negative or not required by law. Electronically signed by: Galindo Mejia M.D. 12/27/2022 5:[address] 12/27/22 16:20 CT SCAN OF THE BRAIN WITHOUT IV CONTRAST CLINICAL HISTORY: Change in mental status. Lethargy. COMPARISON STUDY: CT of the brain dated 12/09/2022. TECHNIQUE: Unenhanced axial CT scan of the brain is performed from the vertex to the skull base. A dose lowering technique was utilized adhering to the principles of ALARA. The skull base was scanned twice due to motion artifact. CT DOSE: 614.27 mGy.cm FINDINGS: Brain parenchyma: The brain parenchyma is normal in appearance. There is no hemorrhage, mass effect, or evidence of acute territorial ischemia by CT criteria. Paul-white matter differentiation is preserved. No extra-axial fluid collection is seen. Ventricles, sulci, cisterns: Normal in configuration. Megacisterna magna is incidentally noted. Intracranial vasculature: There is atherosclerotic calcification of the cavernous carotid arteries. Calvarium: Unremarkable. Sinuses and mastoids: The visualized paranasal sinuses are clear. The mastoid air cells are well pneumatized. Orbits: The bony orbits are grossly intact. IMPRESSION: There is no hemorrhage, mass effect, or evidence of acute territorial ischemia by CT criteria. ACT 112: Negative or not required by law. Electronically signed by: Galindo Mejia M.D. 12/27/2022 4:57 PM Discharge Plan Visit Data Chief Complaint: Chest Pain ED Provider: Travis Tillman Discharge Problem: Atypical chest pain, Confusion, Hypernatremia Patient Disposition: Being Evaluated by Hospitalist Discharge Instructions Interventions: ED Discharge Assessment Last Done: 12/27/22 20:54
[2022-12-27 16:40] LABS: Hematocrit (blood only) 39.2 % (42.0-52.0); Hemoglobin 13.3 g/dl (14.0-18.0); Mean Corpuscular Hemoglobin 30.5 pg (25.0-34.0); Mean Corpuscular Hgb Conc 33.9 g/dL (32.0-36.0); Mean Corpuscular Volume 89.9 fL (80.0-100.0); Mean Platelet Volume 8.6 fL (9.4-12.4); Nucleated RBC # (auto) 0.02 K/uL (0-0.12); Nucleated RBC % (auto) 0.2 %; Platelet Count 161 K/uL (130-400); RDW Coefficient of Variation 14.6 % (11.5-14.5); RDW Standard Deviation 47.5 fL (36.4-46.3); Red Blood Count 4.36 M/uL (4.70-6.10); White Blood Count 12.84 K/ul (4.8-10.8)
[2022-12-27 16:52] LABS: Prothrombin Time 10.9 Seconds (9.0-12.0)
--- NOTE | 2022-12-27 17:00 | CT Scan Report ---
CT SCAN OF THE BRAIN WITHOUT IV CONTRAST CLINICAL HISTORY: Change in mental status. Lethargy. COMPARISON STUDY: CT of the brain dated 12/09/2022. TECHNIQUE: Unenhanced axial CT scan of the brain is performed from the vertex to the skull base. A d ose lowering technique was utilized adhering to the principles of ALARA. The skull base was scanned t wice due to motion artifact. CT DOSE: 614.27 mGy.cm FINDINGS: Brain parenchyma: The brain parenchyma is normal in appearance. There is no hemorrhage, mass effect, or evidence of acute territorial ischemia by CT criteria. Paul-white matter differentiation is preser leonardo. No extra-axial fluid collection is seen. Ventricles, sulci, cisterns: Normal in configuration. Megacisterna magna is incidentally noted. Intracranial vasculature: There is atherosclerotic calcification of the cavernous carotid arteries. Calvarium: Unremarkable. Sinuses and mastoids: The visualized paranasal sinuses are clear. The mastoid air cells are well pneu matized. Orbits: The bony orbits are grossly intact. IMPRESSION: There is no hemorrhage, mass effect, or evidence of acute territorial ischemia by CT du barb[place]. ACT 112: Negative or not required by law. Electronically signed by: Galindo Mejia M.D. 12/27/2022 4:57 PM
[2022-12-27 17:05] LABS: Albumin Globulin Ratio 1.5 (0.9-2); Albumin Level 4.3 gm/dl (3.4-5.0); BUN Creatinine Ratio 10.5 (10-20); Basophils # (auto) 0.11 K/uL (0-0.2); Basophils % (auto) 0.9 %; Bilirubin,Total 0.4 mg/dl (0.2-1.0); Calcium 10.2 mg/dl (8.5-10.1); Creatinine Clr Calc Pharmacy 102.2 ml/min; Eosinophils # (auto) 0.12 K/uL (0-0.50); Eosinophils % (auto) 0.9 %; Est GFR (African American) 92.8 ml/min; Est GFR (Non-African American) 80.1 ml/min; Globulin 2.8 gm/dl (2.5-4.0); Immature Granulocytes # (auto) 0.69 K/uL (0.01-0.20); Immature Granulocytes % (auto) 5.4 %; Lymphocytes # (auto) 1.43 K/uL (1.2-3.4); Lymphocytes % (auto) 11.1 %; Magnesium 1.6 mg/dl (1.7-2.4); Monocytes # (auto) 0.94 K/uL (0.11-0.59); Monocytes % (auto) 7.3 %; Neutrophils # (auto) 9.55 K/uL (1.40-6.50); Neutrophils % (auto) 74.4 %; Potassium 3.2 mmol/L (3.5-5.1); Total Protein 7.1 gm/dl (6.0-8.3)
[2022-12-27 17:08] LABS: Troponin I High Sensitivity 4.9 pg/ml (0-20)
--- NOTE | 2022-12-27 17:13 | XRay Report ---
SINGLE VIEW CHEST CLINICAL HISTORY: Change in mental status. Generalized weakness. FINDINGS: An AP, portable, upright chest radiograph is compared to study dated 12/09/2022 and correlat ed with chest CT dated 10/04/2019. The heart is enlarged noting atherosclerotic calcification of the thoracic aorta. The pulmonary vasculature is noncongested. There are bibasilar airspace opacities. No large pleural effusion or pneumothorax is seen. There is chronic posttraumatic deformity of the left clavicle. IMPRESSION: 1. Cardiomegaly without radiographic evidence of congestive failure. 2. Bibasilar airspace opacities likely represent atelectasis. Correlate clinically for evidence of a superimposed infectious/inflammatory pneumonitis. ACT 112: Negative or not required by law. Electronically signed by: Galindo Mejia M.D. 12/27/2022 5:12 PM
[2022-12-27 17:17] LABS: Thyroid Stimulating Hormone 0.055 uIu/ml (0.300-4.500)
[2022-12-27 17:19] LABS: Appearance Urine Clear (Clear); Bacteria Urine Automated Negative (Negative); Bilirubin Urine Negative (Negative); Blood Urine 2+ (Negative); Cast Urine Automated 0 /lpf (0-5); Color Urine Yellow; Epithelial Cell Urine Auto 0-5 /lpf (0-5); Glucose Urine UA Negative (Negative); Ketones Urine Negative (Negative); Leukocyte Esterase Urine Negative (Negative); Nitrite Urine Negative (Negative); Protein Urine Negative (Negative); RBC Urine Automated 0-4 /hpf (0-4); Specific Gravity Urine 1.004 (1.000-1.030); Urobilinogen Urine Negative (Negative)
[2022-12-27] MEDS ORDERED: LACTATED RINGER'S 500 ML IV ONE (17:29)
[2022-12-27 17:45] LABS: Amphetamines+Metham, Urine Neg (Neg); Barbiturates, Urine Neg (Neg); Benzodiazepine, Urine Neg (Neg); Cocaine, Urine Neg (Neg); MDMA (Ecstacy), Urine Neg (Neg); Methadone, Urine Neg (Neg); Opiate, Urine Neg (Neg); Phencyclidine, Urine Neg (Neg)
--- NOTE | 2022-12-27 17:52 | History & Physical Report ---
Date of Service December 27, 2022 Assessment & Plan (1) Acute alteration in mental status: Plan: Altered mental status, slurring speech History of acute toxic encephalopathy due to benzodiazepine overdose, without SI/intentional - CT-H: There is no hemorrhage, mass effect, or evidence of acute territorial ischemia by CT criteria. TSH 0.055, with pituitary hypothyroidism. Free T4 wnl Sodium 147 Bicarb 35, mildly elevated. VBG pending Serum alcohol negative Urine benzodiazepine:Negative UA: Noninfected appearing -Denies infectious symptoms including fever, chills, sweats, abdominal pain, cough -Bicarb elevated, mild suspect chronic with hypoventilation. VBG pendingCPAP nightly/as needed Only medication change is Vimpat which was recently doubled to 100 mg per patient. We will decrease this to 50 and follow, hold 1 dose tonight Mild volume depletion while in ER, received IV fluids. Continue to follow, may eat if alert and awake enough to swallow safely otherwise hold diet Valproic and lithium levels pending Hold sedating medications including lorazepam at this time Chest pain Resolved by time of admission evaluation Troponin 4.9 on admission, highly reassuring giving time of initial pain. 2 hour repeat ordered EKG without acute ischemic findings Follow on medical telemetry overnight Hypomagnesemia, hypokalemia Repleted, trended Type II DM Hold home metformin, Lantus Continue weight-based basal bolus, goal BSG 850222 Lantus 10 units twice daily, CF 40, ratio 15 Seizure disorder With history of PNES Continue Vimpat, dose decreased as otherwise noted Continue divalproex 500 mg 2 tablets p.o. twice daily, level pending ?supratherapeutic. Hold if high Panhypopituitary is him Chronic, stable Continue desmopressin 0.4 mg p.o. twice daily Continue hydrocortisone 20 mg p.o. twice daily Continue Synthroid 200 mcg p.o. every morning Continue testosterone nightly Somatropin 0.3 mg nightly Mood -Brexpiprazole 3 mg every morning -Duloxetine 30 mg daily -[place] 300 mg p.o. a.m. at bedtime -Mirtazapine 30 mg p.o. at bedtime -Prazosin 5 mg p.o. at bedtime DVT prophylaxis: SCDs, Lovenox Diet: DM diet if alert enough to eat, otherwise n.p.o. Disposition: Medical telemetry for cardiac monitoring and airway monitoring CODE STATUS: Full code (2) DM type 2 (diabetes mellitus, type 2): (3) Lumbar stenosis with neurogenic claudication: (4) Migraine without aura, not intractable, without status migrainosus: (5) Mild CAD: (6) Pituitary diabetes insipidus: (7) Pituitary hypogonadism: (8) Pituitary hypothyroidism: (9) Pseudoseizures: (10) Secondary adrenal insufficiency: (11) S/P TURP (status post transurethral resection of prostate): History of Present Illness Primary Care Provider: Larry Amaral MD Anders is a 52-year-old male with past medical history of DM 2, syncope, migraine, pseudoseizures, pituitary DI/hypogonadism/hypothyroidism, depression, BPH with LUTS who presents to the emergency department by ambulance for confusion and chest pain. Patient reportedly was with slurring speech, and was unsteady and unable to ambulate independently to the bathroom. Patient has had presentation and admission for similar symptoms, denies any illicit benzodiazepine use KNOT BUMPER. EKG without acute ST/T wave changes. Anders is seen at the bedside in the ER. He is sedated and somnolent, but arouses relatively easily and answers questions appropriately before falling back asleep. He reports he has not taken any benzodiazepines or other sedating medications. He reports his only medication change is having Vimpat increased a couple of days ago. He denies any recreational substance, alcohol use. He reports his intensive care medicine specialist was concerned that he was more confused and sedated, and he reports he is felt more somnolent and sedated in the last 24 hours. He reports yesterday he had some chest pain underneath his sternum/chest, this improved by time of arrival to the ER. He denies fever, chills, sweats, chest pain, chest pressure, nausea, vomiting, diarrhea, constipation. Denies focal weakness but feels overall fatigued. Does feel too tired to try to stand. Does not engage in formal strength testing other than tableau report developer strength and hip flexion which are grossly intact. Medical History: Reviewed Medications: Reviewed Surgical History: Reviewed Allergies: Reviewed Social History: Reviewed Code Status: Full code Allergies Allergy/AdvReac Type Severity Reaction Status Date / Time clindamycin Allergy Intermediate SWELLING Verified 12/22/22 14:51 Iodinated Contrast Media Allergy Intermediate face/eye Verified 12/22/22 14:51 swelling Quinolones Allergy Intermediate HIVES Verified 12/22/22 14:51 Home Medications Medication Instructions Recorded Confirmed Type cyclobenzaprine 10 mg tablet 10 mg PO BID PRN muscle spasm 30 09/18/20 12/27/22 Rx days #60 tabs albuterol sulfate 90 mcg/actuation 1 inh inhalation QID PRN Shortness 07/28/21 12/27/22 History aerosol inhaler Of Breath Or Wheezing gabapentin 400 mg capsule See Rx Instructions .Route .COMPLEX 08/11/21 12/27/22 History lorazepam 0.5 mg tablet 0.5 mg PO QPM PRN Anxiety 09/04/21 12/27/22 History fluticasone propionate 50 1 spray intranasal HS PRN allergy 10/23/21 12/27/22 Rx mcg/actuation nasal symptoms #16 grams spray,suspension (Flonase Allergy Relief) onabotulinumtoxinA 200 unit See Rx Instructions IM .COMPLEX #1 12/25/21 12/27/22 Rx solution for injection (Botox) ea acetaminophen 325 mg tablet 650 mg PO Q6H PRN pain #30 tabs 03/01/22 12/27/22 Rx testosterone 2 pump topical PM #75 grams 05/27/22 12/27/22 Rx lithium carbonate 300 mg tablet 300 mg PO AMHS 06/04/22 12/27/22 History somatropin 5 mg/1.5 mL (3.3 mg/mL) 0.3 mg (0.09 mL) subcut PM #3 mL 06/04/22 12/27/22 Rx subcutaneous pen injector (Norditropin FlexPro) trazodone 100 mg tablet 100 mg PO HS 06/04/22 12/27/22 History brexpiprazole 3 mg tablet (Rexulti) 3 mg PO QAM 06/23/22 12/27/22 History celecoxib 200 mg capsule 200 mg PO DAILY PRN Pain 06/23/22 12/27/22 History duloxetine 30 mg capsule,delayed 30 mg PO QDL 06/23/22 12/27/22 History release mirtazapine 30 mg tablet (Remeron) 30 mg PO HS 06/23/22 12/27/22 History alfuzosin 10 mg tablet,extended 10 mg PO QAM #90 tabs 08/05/22 12/27/22 Rx release 24 hr dutasteride 0.5 mg capsule 0.5 mg PO QAM #90 caps 08/05/22 12/27/22 Rx (Avodart) blood sugar diagnostic (OneTouch 08/06/22 12/27/22 History Verio test strips) insulin glargine 100 unit/mL (3 10 unit (0.1 mL) subcut QPM #15 mL 08/06/22 12/27/22 Rx mL) subcutaneous pen (Lantus Solostar U-100 Insulin) Vimpat 50 mg tablet (lacosamide) See Rx Instructions .Route 09/03/22 12/27/22 Rx .COMPLEX #90 tabs cholecalciferol (vitamin D3) 50 50 mcg PO QPM 11/09/22 12/27/22 History mcg (2,000 unit) capsule duloxetine 60 mg capsule,delayed 60 mg PO QDL 11/09/22 12/27/22 History release levothyroxine 200 mcg tablet 200 mcg PO QAM 11/09/22 12/27/22 History prazosin 5 mg capsule (Minipress) 5 mg PO HS 11/09/22 12/27/22 History furosemide 40 mg tablet 40 mg PO QAM #90 tabs 11/18/22 12/27/22 Rx lisinopril 5 mg tablet 5 mg PO QDL #90 tabs 11/18/22 12/27/22 Rx meclizine 25 mg tablet 25 mg PO AMPM #180 tabs 11/18/22 12/27/22 Rx metformin 1,000 mg tablet 1,000 mg PO AMPM #180 tabs 11/18/22 12/27/22 Rx hydrocortisone 10 mg tablet 20 mg PO BID 11/29/22 12/27/22 History desmopressin 0.1 mg tablet (DDAVP) 0.4 mg PO BID 12/06/22 12/27/22 History oxybutynin chloride 5 mg tablet 5 mg PO Q8H PRN bladder spasms #20 12/06/22 12/27/22 Rx tabs pantoprazole 40 mg tablet,delayed 40 mg PO QAM 12/06/22 12/27/22 History release (Protonix) phenazopyridine 200 mg tablet 200 mg PO Q8H PRN pain #10 tabs 12/06/22 12/27/22 Rx (Pyridium) oxycodone-acetaminophen 7.5 mg-325 1 tab PO Q8H PRN pain #7 tabs 12/11/22 12/27/22 Rx mg tablet (Percocet) atorvastatin 10 mg tablet 10 mg PO QAM 90 days #90 tabs 12/15/22 12/27/22 Rx divalproex 500 mg tablet,delayed 1,000 mg PO BID 30 days #120 tabs 12/21/22 12/27/22 Rx release lacosamide 100 mg tablet (Vimpat) 100 mg PO BID #60 tabs 12/21/22 12/27/22 Rx propranolol 120 mg capsule,24 120 mg PO QPM #90 caps 12/21/22 12/27/22 Rx hr,extended release rimegepant 75 mg disintegrating 75 mg PO DAILY PRN Migraine 12/21/22 12/27/22 Rx tablet (Nurtec ODT) Headache #8 tabs docusate sodium 100 mg capsule 100 mg PO BID PRN Constipation 12/27/22 12/27/22 History (Colace) Past Med/Surg History Medical History Acute kidney injury September 2022 (s/p grand mal seizure) Bladder mass benign BPH with obstruction/lower urinary tract symptoms Depression DM type 2 (diabetes mellitus, type 2) Growth hormone deficiency History of COVID-19 10/2021 - fatigue; resolved. Hx of fracture of foot Sep 2022- right > cast present Insomnia Kidney stones HX Lower extremity edema Lumbar radiculopathy Lumbar spine pain Migraine without aura and without status migrainosus, not intractable Mitral valve regurgitation follows with Dr. Phillips Obstructive sleep apnea of adult cpap Pituitary diabetes insipidus Follows with endocrinology- on DDAVP Pituitary hypogonadism Follows with endocrinology- Pituitary hypothyroidism Follows with endocrinology- Pituitary neoplasm Dx'ed in 2001- s/p surgical resection and XRT Repeat surgery in 2015 secondary to tumor regrowth Presence of cardiac device Loop recorder > last checked summer 2021 Prostate mass benign Rectal bleeding still present Secondary adrenal insufficiency Seizure disorder last seizure grand mal and petite mal on Oct 01, 2022 > follows with Dr. Ordonez and goes to neurology at [facility], unsure of MD's name Sensorineural hearing loss of both ears SOB (shortness of breath) on exertion Syncope and collapse Reason for loop recorder No recent issues since bed bound from femur fracture in Sep 2022 per patient Tremor Surgical History History of bladder surgery remove mass History of brain [place] x2[place] [facility] [place] [facility]--for brain tumors > caused epilepsy History of cardiac cath 07/2021 - no stents History of colonoscopy History of esophagogastroduodenoscopy (EGD) History of lithotripsy History of lumbar fusion [facility] [place] Jul 2022 History of prostate surgery remove mass History of tooth extraction History of wisdom tooth extraction S/P epidural steroid injection Status post right foot surgery replaced 5th metatarsal--hardware in place Family History Grandmother (Paternal) Family history of diabetes mellitus Aunt Family history of diabetes mellitus Uncle Family history of diabetes mellitus Father Prostate cancer Heart disease Mother Cardiac disorder Grandmother (Maternal) Myocardial infarction Other Asthma Cancer Hypertension No family history of adverse response to anesthesia No family history of bleeding disorder Stroke Denies family history of Ovarian cancer Breast cancer Colorectal cancer Social History Smoking Status: Never smoker Tobacco Type: Smokeless Tobacco (Dip or Chew) Second Hand Exposure: Yes; Hx Substance Use: No Preferred Language: Croatian Communication Ability: Effective Visual Impairment: No Limitations Hearing Ability: Normal Leather Crafter Required: No Beliefs That Will Affect Care: None marital status: Single Current Living Situation: Alone current occupational status: unemployed Feels Safe at Home: Yes Childhood Exposure to Second-Hand Smoke: Yes (parents smoked) Seatbelt Use: always Assistive Devices: Special Shoe and Walker Review of Systems Review of Systems: All systems reviewed & are unremarkable except as noted in HPI & below Denies falls/injuries. Limited somewhat by somnolence Physical Exam Physical Exam: General: Somnolent, arouses easily to voice before falling back asleep. Oriented to name/year/place HEENT: Atraumatic, normocephalic. Vision/hearing intact. Pupils equal and reactive, are not pinpoint or dilated on exam Pulm: CTAB A&P. -wheezes, -rales, -rhonchi. Symmetrical chest rise. No increased work of breathing. No respiratory distress. Cardiac: RRR, -mrg. Radial pulses intact and symmetrical. Abdominal: Nontender, nondistended, soft. BS present. Extremities: Warm, dry. No shaking/tremor. Cap refill brisk. Strength exam somewhat limited by engagement, hip flexion grossly intact bilaterally, tableau report developer strength intact bilaterally Results & Data Results & Data ([facility]) Vital Signs (Past 12 Hours) Vital Signs Temp Pulse Resp BP Pulse Ox O2 Del Method 12/27/22 16:13 36.7 C 94 H 20 149/92 H 95 Room Air PG Care Time/CCT Total # of Minutes Spent Total Time Spent with Patient: Total time spent is greater than 50% in coordination of care (as documented) at patient's floor/unit and/or counseling patient: Coding Level of Care Code 51369 INT INP/OBS CARE 2/55MIN Diagnoses Acute alteration in mental status R41.82 DM type 2 (diabetes mellitus, type 2) E11.9 Lumbar stenosis with neurogenic claudication M48.062 Migraine without aura, not intractable, without status migrainosus G43.009 Mild CAD I25.10 Pituitary diabetes insipidus E23.2 Pituitary hypogonadism E23.0 Pituitary hypothyroidism E03.8 Pseudoseizures R56.9 Secondary adrenal insufficiency E27.49 S/P TURP (status post transurethral resection of prostate) Z90.79
[2022-12-27 17:54] LABS: T4 Free Thyroxine 0.76 ng/dl (0.61-1.60)
[2022-12-27] MEDS: POTASSIUM CHLORIDE / WTR 10 MEQ/100 ML PLCT IV SCH ×3 (18:52→23:05)
[2022-12-27] MEDS: MAGNESIUM SULFATE / D5W 1 GM/100 ML BAG IV SCH (18:52)
[2022-12-27] MEDS ORDERED: DOCUSATE SODIUM 100 MG CAP PO PRN (21:18)
[2022-12-27] MEDS ORDERED: ALBUTEROL HFA 8 GM INHALER INH PRN (21:18)
[2022-12-27] MEDS ORDERED: CARBOHYDRATES FOR HYPOGLYCEMIA PO PRN (21:18)
[2022-12-27] MEDS ORDERED: GLUCOSE 40% GEL 15 GM TUBE PO PRN (21:18)
[2022-12-27] MEDS ORDERED: NON-FORMULARY MEDICATION (Testosterone 20.25 mg/1.25 gram (1.62 %) gel in metered-dose pum TOP SCH (21:18)
[2022-12-27] MEDS ORDERED: DEXTROSE 50% 50 ML SYRINGE IV PRN (21:18)
[2022-12-27] MEDS ORDERED: OXYBUTYNIN CHLORIDE 5 MG TAB PO PRN (21:18)
[2022-12-27] MEDS ORDERED: NITROGLYCERIN SL 0.4 MG/TAB TAB SL PRN (21:18)
[2022-12-27] MEDS ORDERED: ACETAMINOPHEN 325 MG TAB PO PRN (21:18)
[2022-12-27] MEDS ORDERED: GLUCAGON FOR INJ 1 MG VIAL SQ PRN (21:18)
[2022-12-27] MEDS ORDERED: GLUCOSE 10 TAB/TUBE PO PRN (21:18)
[2022-12-27 21:54] LABS: Base Excess VBG 13.6 mEq/L; HCO3 VBG 40 mmol/L; Oxygen Saturation VBG 68.2 %; PCO2 VBG 58 mmHg (38-50); PO2 VBG 41 mmHg; pH VBG 7.45 (7.36-7.41)
[2022-12-27] MEDS: DIVALPROEX DELAY RELEASE 500 MG TAB PO SCH (23:10)
[2022-12-27] MEDS: PROPRANOLOL HCL 60 MG LA CAP PO SCH (23:11)
[2022-12-27] MEDS: DESMOPRESSIN ACETATE 0.1 MG TAB PO SCH (23:13)
[2022-12-27] MEDS: PRAZOSIN HCL 1 MG CAP PO SCH (23:14)
[2022-12-27] MEDS: LITHIUM CARBONATE 300 MG TAB PO SCH (23:14)
[2022-12-27] MEDS: MIRTAZAPINE TAB 15 MG TAB PO SCH (23:16)
[2022-12-27] MEDS: MECLIZINE HCL 25 MG TAB PO SCH (23:17)
[2022-12-28] MEDS: LACOSAMIDE 50 MG TABLET PO SCH ×3 (01:00→23:08)
[2022-12-28] MEDS: LANTUS PER UNIT CHARGE SQ SCH ×3 (01:00→23:11)
[2022-12-28] MEDS: INSULIN ASPART PER UNIT SC SCH ×5 (01:01→23:11)
[2022-12-28] MEDS: MAGNESIUM SULFATE / D5W 1 GM/100 ML BAG IV SCH (01:02)
[2022-12-28 03:15] LABS: Basophils # (auto) 0.11 K/uL (0-0.2); Basophils % (auto) 0.9 %; Eosinophils # (auto) 0.11 K/uL (0-0.50); Eosinophils % (auto) 0.9 %; Hematocrit (blood only) 37.6 % (42.0-52.0); Hemoglobin 12.5 g/dl (14.0-18.0); Immature Granulocytes # (auto) 0.64 K/uL (0.01-0.20); Lymphocytes # (auto) 2.93 K/uL (1.2-3.4); Mean Corpuscular Hemoglobin 30.3 pg (25.0-34.0); Mean Corpuscular Hgb Conc 33.2 g/dL (32.0-36.0); Mean Corpuscular Volume 91.3 fL (80.0-100.0); Mean Platelet Volume 8.6 fL (9.4-12.4); Monocytes # (auto) 1.03 K/uL (0.11-0.59); Monocytes % (auto) 8.1 %; Neutrophils # (auto) 7.91 K/uL (1.40-6.50); Neutrophils % (auto) 62.1 %; Nucleated RBC # (auto) 0.03 K/uL (0-0.12); Nucleated RBC % (auto) 0.2 %; Platelet Count 155 K/uL (130-400); RDW Coefficient of Variation 15.2 % (11.5-14.5); RDW Standard Deviation 49.6 fL (36.4-46.3); Red Blood Count 4.12 M/uL (4.70-6.10); White Blood Count 12.73 K/ul (4.8-10.8)
[2022-12-28 03:23] LABS: BUN Creatinine Ratio 16.2 (10-20); Calcium 9.4 mg/dl (8.5-10.1); Creatinine Clr Calc Pharmacy 105.9 ml/min; Est GFR (African American) 99.7 ml/min; Potassium 3.5 mmol/L (3.5-5.1)
[2022-12-28] MEDS: LEVOTHYROXINE SODIUM 200 MCG TABLET PO SCH (05:56)
[2022-12-28] MEDS ORDERED: FLUARIX QUADRIVALENT 0.5 ML SYR IM ONE (07:36)
[2022-12-28] MEDS ORDERED: PNEUMOCOCCAL POLYSACCHARIDES 25 MCG/0.5 ML VIAL/SYR IM ONE (07:36)
[2022-12-28] MEDS ORDERED: POTASSIUM CHLORIDE CRTAB 20 MEQ TABCR PO STA (07:54)
--- NOTE | 2022-12-28 08:09 | Electrocardiogram Report ---
Test Reason : Blood Pressure : / mmHG Vent. Rate : 094 BPM Atrial Rate : 094 BPM P-R Int : 140 ms QRS Dur : 104 ms QT Int : 368 ms P-R-T Axes : 067 003 033 degrees QTc Int : 460 ms Poor data quality, interpretation may be adversely affected Sinus rhythm Diffuse Minor Nonspecific T wave abnormality Prolonged QT Abnormal ECG When compared with ECG of 09-DEC-2022 04:33, Nonspecific T wave abnormality now present Confirmed by Garfield Marx ([id number]) on 12/28/2022 8:08:52 AM Referred By: REFERRED SELF Confirmed By:Garfield Marx
[2022-12-28] MEDS: LITHIUM CARBONATE 300 MG TAB PO SCH ×2 (08:34→23:14)
[2022-12-28] MEDS: DESMOPRESSIN ACETATE 0.1 MG TAB PO SCH ×2 (08:34→23:10)
[2022-12-28] MEDS: FUROSEMIDE 40 MG TAB PO SCH (08:34)
[2022-12-28] MEDS: MECLIZINE HCL 25 MG TAB PO SCH (08:36)
[2022-12-28] MEDS: GABAPENTIN 400 MG CAP PO SCH ×2 (08:36→11:07)
[2022-12-28] MEDS: HYDROCORTISONE 10 MG TAB PO SCH ×2 (08:48→23:10)
[2022-12-28] MEDS: ENOXAPARIN INJ 40 MG/0.4 ML SYR SQ SCH (08:48)
[2022-12-28] MEDS: DIVALPROEX DELAY RELEASE 500 MG TAB PO SCH ×2 (08:48→23:10)
[2022-12-28] MEDS: ATORVASTATIN 10 MG TAB PO SCH (08:49)
[2022-12-28] MEDS: ALFUZOSIN HCL 10 MG TAB PO SCH (08:49)
[2022-12-28] MEDS: PANTOprazole 40 MG TAB PO SCH (08:50)
[2022-12-28] MEDS: DULoxetine HCL 30 MG CAP PO SCH (11:08)
[2022-12-28] MEDS: lisinopril 5 MG TAB PO SCH (11:09)
[2022-12-28] MEDS: DULoxetine HCL 60 MG CAP PO SCH (11:09)
--- NOTE | 2022-12-28 12:58 | Hospitalist Progress Note ---
Date of Service December 28, 2022 Assessment & Plan (1) Acute alteration in mental status: Plan: Toxic encephalopathy from medication use or substance abuse is most likely diagnosis. Multiple medications have been discontinued. Supportive care. Head CT scan negative on admission. Serum alcohol negative. Urine benzodiazepine:Negative. UA: Noninfected appearing. Denies infectious symptoms including fever, chills, sweats, abdominal pain, cough Hypomagnesemia, hypokalemia Repleted, trended Type II DM Hold home metformin, Lantus Continue weight-based basal bolus, goal BSG 502999 Lantus 10 units twice daily, CF 40, ratio 15 Seizure disorder With history of PNES Continue Vimpat, dose decreased as otherwise noted Continue divalproex 500 mg 2 tablets p.o. twice daily, level pending ?supratherapeutic. Hold if high Panhypopituitary is him Chronic, stable Continue desmopressin 0.4 mg p.o. twice daily Continue hydrocortisone 20 mg p.o. twice daily Continue Synthroid 200 mcg p.o. every morning Continue testosterone nightly Somatropin 0.3 mg nightly Mood -Brexpiprazole 3 mg every morning -Duloxetine 30 mg daily -[place] 300 mg p.o. a.m. at bedtime -Mirtazapine 30 mg p.o. at bedtime -Prazosin 5 mg p.o. at bedtime DVT prophylaxis: SCDs, Lovenox Diet: DM diet if alert enough to eat, otherwise n.p.o. Disposition: Medical telemetry for cardiac monitoring and airway monitoring CODE STATUS: Full code (2) DM type 2 (diabetes mellitus, type 2): Plan: ADA diet. Sliding scale coverage as needed (3) Lumbar stenosis with neurogenic claudication: Plan: Supportive care. Avoid narcotic medication while encephalopathic (4) Migraine without aura, not intractable, without status migrainosus: Plan: No apparent migraine at this time. (5) Mild CAD: Plan: Continue current medical management. 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 Continue current medications. (7) Pituitary hypogonadism: Plan: Aware (8) Pituitary hypothyroidism: Plan: Continue thyroid replacement (9) Pseudoseizures: Plan: Treated with Vimpat (10) Secondary adrenal insufficiency: Plan: We will monitor electrolytes (11) S/P TURP (status post transurethral resection of prostate): Plan: No intervention necessary at this time (12) Atypical chest pain: Plan: Resolved. Telemetry. No evidence of acute coronary syndrome Plan Hopefully eventual discharge to home. Continue IV fluids. 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 He is disoriented to place and time. Several EXHAUST EQUIPMENT OPERATOR affecting medications have been discontinued. Vital signs remained stable however. Potassium corrected to 3.5. He will need IV fluids until oral intake improves. Lorazepam has been also discontinued on admission. Review of Systems Review of Systems: Unable to comply with review of systems questioning Physical Exam Physical Exam: General-lethargic. Eyes closed. Disoriented HEENT-head atraumatic and normocephalic, pupils equal and reactive to light, extraocular muscles intact Neck-no lymphadenopathy or thyromegaly, trachea midline Chest-clear to auscultation percussion. No rales wheezing or rhonchi Cardiac-regular rate and rhythm, normal S1 and S2 Abdomen-normal bowel sounds, nontender, no hepatosplenomegaly Extremities-no cyanosis, clubbing, or edema Neuro-cranial nerves II through XII intact, motor and sensory function within normal limits, strength symmetrical no focal deficits Psych-lethargic. Cannot assess Results & Data Results & Data ([facility]) Vital Signs (Past 12 Hours) Vital Signs Temp Pulse Pulse Resp BP Pulse Ox O2 Del Method 12/28/22 11:01 36.7 C 72 18 118/75 95 Room Air 12/28/22 07:33 36.3 C L 74 20 138/81 95 Room Air 12/28/22 07:14 72 12/28/22 02:50 36.6 C 77 20 147/93 H 94 Room Air Laboratory Results 12/28/22 02:24 12/28/22 02:24 PG Care Time/CCT Total # of Minutes Spent Total Time Spent with Patient: Total time spent is greater than 50% in coordination of care (as documented) at patient's floor/unit and/or counseling patient: Coding Level of Care Code 69571 SUB INP/OBS CARE 3/50MIN Diagnoses Acute alteration in mental status R41.82 DM type 2 (diabetes mellitus, type 2) E11.9 Lumbar stenosis with neurogenic claudication M48.062 Migraine without aura, not intractable, without status migrainosus G43.009 Mild CAD I25.10 Pituitary diabetes insipidus E23.2 Pituitary hypogonadism E23.0 Pituitary hypothyroidism E03.8 Pseudoseizures R56.9 Secondary adrenal insufficiency E27.49 S/P TURP (status post transurethral resection of prostate) Z90.79 Atypical chest pain R07.89
[2022-12-28] MEDS: NSS + 20MEQ KCL 20 MEQ/1,000 ML BAG IV SCH (14:06)
[2022-12-28] MEDS: PRAZOSIN HCL 1 MG CAP PO SCH (23:08)
[2022-12-28] MEDS: PROPRANOLOL HCL 60 MG LA CAP PO SCH (23:13)
[2022-12-28] MEDS: MIRTAZAPINE TAB 15 MG TAB PO SCH (23:14)
[2022-12-29] MEDS: NSS + 20MEQ KCL 20 MEQ/1,000 ML BAG IV SCH ×2 (02:19→14:30)
[2022-12-29] MEDS: LEVOTHYROXINE SODIUM 200 MCG TABLET PO SCH (06:14)
[2022-12-29] MEDS: INSULIN ASPART PER UNIT SC SCH ×4 (07:46→21:32)
[2022-12-29] MEDS: DIVALPROEX DELAY RELEASE 500 MG TAB PO SCH ×2 (09:08→21:31)
[2022-12-29] MEDS: LITHIUM CARBONATE 300 MG TAB PO SCH ×2 (09:09→21:29)
[2022-12-29] MEDS: PANTOprazole 40 MG TAB PO SCH (09:09)
[2022-12-29] MEDS: ALFUZOSIN HCL 10 MG TAB PO SCH (09:09)
[2022-12-29] MEDS: ATORVASTATIN 10 MG TAB PO SCH (09:09)
[2022-12-29] MEDS: DESMOPRESSIN ACETATE 0.1 MG TAB PO SCH ×2 (09:09→21:28)
[2022-12-29] MEDS: FUROSEMIDE 40 MG TAB PO SCH (09:09)
[2022-12-29] MEDS: HYDROCORTISONE 10 MG TAB PO SCH ×2 (09:09→21:31)
[2022-12-29] MEDS: ENOXAPARIN INJ 40 MG/0.4 ML SYR SQ SCH (09:10)
[2022-12-29] MEDS: LANTUS PER UNIT CHARGE SQ SCH ×2 (09:16→21:35)
[2022-12-29] MEDS: LACOSAMIDE 50 MG TABLET PO SCH ×2 (09:40→21:27)
[2022-12-29 09:47] LABS: BUN Creatinine Ratio 20.6 (10-20); Calcium 8.9 mg/dl (8.5-10.1); Creatinine Clr Calc Pharmacy 103.5 ml/min; Est GFR (African American) 96.1 ml/min; Est GFR (Non-African American) 82.9 ml/min; Magnesium 2.2 mg/dl (1.7-2.4); Potassium 4.2 mmol/L (3.5-5.1)
[2022-12-29] MEDS: lisinopril 5 MG TAB PO SCH (12:03)
[2022-12-29] MEDS: DULoxetine HCL 30 MG CAP PO SCH (12:03)
[2022-12-29] MEDS: DULoxetine HCL 60 MG CAP PO SCH (12:03)
--- NOTE | 2022-12-29 14:19 | Hospitalist Progress Note ---
Date of Service December 29, 2022 Assessment & Plan (1) Acute alteration in mental status: Plan: Toxic encephalopathy from medication use or substance abuse is most likely diagnosis. Multiple medications have been discontinued. He seems to be doing much better now. Continue supportive care. Head CT scan negative on admission. Serum alcohol negative. Urine benzodiazepine:Negative. UA: Noninfected appearing. Denies infectious symptoms including fever, chills, sweats, abdominal pain, cough (2) DM type 2 (diabetes mellitus, type 2): Plan: ADA diet. Sliding scale coverage as needed (3) Lumbar stenosis with neurogenic claudication: Plan: Supportive care. Avoid narcotic medication while encephalopathic (4) Migraine without aura, not intractable, without status migrainosus: Plan: No apparent migraine at this time. (5) Mild CAD: Plan: Continue current medical management. 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 Continue current medications. (7) Pituitary hypogonadism: Plan: Aware. Stable. Continue current medications (8) Pituitary hypothyroidism: Plan: Continue thyroid replacement (9) Pseudoseizures: Plan: Treated with Vimpat (10) Secondary adrenal insufficiency: Plan: We will monitor electrolytes (11) S/P TURP (status post transurethral resection of prostate): Plan: No intervention necessary at this time (12) Atypical chest pain: Plan: Resolved. Telemetry. No evidence of acute coronary syndrome Plan Anticipate discharge to home tomorrow, December 30. 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 Mild confusion remains. Case management entry noted. Lorazepam meclizine and gabapentin have all been discontinued. Potassium corrected to 4.2. Magnesium corrected to 2.2. OT and PT services requested. Review of Systems Review of Systems: Constitutional-no fever or chills ENT-no blurred vision, no double vision, no epistaxis, no sore throat Respiratory-no cough, no wheezing, no shortness of breath Cardiac-no palpitations, no chest pain, no syncope GI-no nausea, vomiting, diarrhea, melena, hematochezia -no urinary retention, no urinary incontinence, no dysuria, no hematuria Musculoskeletal-no joint pain, no muscle tenderness Skin-no bruising, no rashes, no pruritus Neuro-no isolated weakness, no paresthesia, no weakness Psych-no depression, no anxiety Physical Exam Physical Exam: General-alert. Oriented to name and place. HEENT-head atraumatic and normocephalic, pupils equal and reactive to light, extraocular muscles intact Neck-no lymphadenopathy or thyromegaly, trachea midline Chest-clear to auscultation percussion. No rales wheezing or rhonchi Cardiac-regular rate and rhythm, normal S1 and S2 Abdomen-normal bowel sounds, nontender, no hepatosplenomegaly Extremities-no cyanosis, clubbing, or edema Neuro-cranial nerves II through XII intact, motor and sensory function within normal limits, strength symmetrical no focal deficits Psych-alert. Normal affect Results & Data Results & Data ([facility]) Vital Signs (Past 12 Hours) Vital Signs Temp Pulse Pulse Resp BP Pulse Ox O2 Del Method 12/29/22 11:58 36.5 C 76 18 148/92 H 96 Room Air 12/29/22 07:00 79 12/29/22 07:42 36.3 C L 96 H 18 147/91 H 96 Room Air 12/29/22 03:27 36.4 C L 76 16 135/71 93 Room Air Laboratory Results 12/28/22 02:24 12/29/22 08:17 PG Care Time/CCT Total # of Minutes Spent Total Time Spent with Patient: Total time spent is greater than 50% in coordination of care (as documented) at patient's floor/unit and/or counseling patient: Coding Level of Care Code 08804 SUB INP/OBS CARE 3/50MIN Diagnoses Acute alteration in mental status R41.82 DM type 2 (diabetes mellitus, type 2) E11.9 Lumbar stenosis with neurogenic claudication M48.062 Migraine without aura, not intractable, without status migrainosus G43.009 Mild CAD I25.10 Pituitary diabetes insipidus E23.2 Pituitary hypogonadism E23.0 Pituitary hypothyroidism E03.8 Pseudoseizures R56.9 Secondary adrenal insufficiency E27.49 S/P TURP (status post transurethral resection of prostate) Z90.79 Atypical chest pain R07.89
[2022-12-29] MEDS: MIRTAZAPINE TAB 15 MG TAB PO SCH (21:28)
[2022-12-29] MEDS: PRAZOSIN HCL 1 MG CAP PO SCH (21:29)
[2022-12-29] MEDS: PROPRANOLOL HCL 60 MG LA CAP PO SCH (21:30)
[2022-12-30] MEDS: LEVOTHYROXINE SODIUM 200 MCG TABLET PO SCH (06:12)
[2022-12-30 07:57] LABS: BUN Creatinine Ratio 18.6 (10-20); Calcium 8.6 mg/dl (8.5-10.1); Creatinine Clr Calc Pharmacy 92.5 ml/min; Est GFR (African American) 84.9 ml/min; Est GFR (Non-African American) 73.3 ml/min; Potassium 3.8 mmol/L (3.5-5.1)
[2022-12-30] MEDS: ENOXAPARIN INJ 40 MG/0.4 ML SYR SQ SCH (08:27)
[2022-12-30] MEDS: HYDROCORTISONE 10 MG TAB PO SCH (08:27)
[2022-12-30] MEDS: FUROSEMIDE 40 MG TAB PO SCH (08:28)
[2022-12-30] MEDS: ALFUZOSIN HCL 10 MG TAB PO SCH (08:28)
[2022-12-30] MEDS: PANTOprazole 40 MG TAB PO SCH (08:28)
[2022-12-30] MEDS: ATORVASTATIN 10 MG TAB PO SCH (08:28)
[2022-12-30] MEDS: LITHIUM CARBONATE 300 MG TAB PO SCH (08:29)
[2022-12-30] MEDS: DESMOPRESSIN ACETATE 0.1 MG TAB PO SCH (08:29)
[2022-12-30] MEDS: DIVALPROEX DELAY RELEASE 500 MG TAB PO SCH (08:29)
[2022-12-30] MEDS: INSULIN ASPART PER UNIT SC SCH ×2 (08:44→12:26)
[2022-12-30] MEDS: LANTUS PER UNIT CHARGE SQ SCH (08:45)
[2022-12-30] MEDS: LACOSAMIDE 50 MG TABLET PO SCH (09:27)
[2022-12-30] MEDS: DULoxetine HCL 60 MG CAP PO SCH (12:21)
[2022-12-30] MEDS: lisinopril 5 MG TAB PO SCH (12:22)
[2022-12-30] MEDS: DULoxetine HCL 30 MG CAP PO SCH (12:22)
--- NOTE | 2022-12-30 12:44 | Hospitalist Progress Note ---
Date of Service December 30, 2022 Assessment & Plan (1) Acute alteration in mental status: Plan: Toxic encephalopathy from medication use or substance abuse is most likely diagnosis. Multiple medications have been discontinued. He seems to be doing much better now. Continue supportive care. Head CT scan negative on admission. Serum alcohol negative. Urine benzodiazepine:Negative. UA: Noninfected appearing. Denies infectious symptoms including fever, chills, sweats, abdominal pain, cough (2) DM type 2 (diabetes mellitus, type 2): Plan: ADA diet. Sliding scale coverage as needed (3) Lumbar stenosis with neurogenic claudication: Plan: Supportive care. Avoiding narcotic medication (4) Migraine without aura, not intractable, without status migrainosus: Plan: No apparent migraine at this time. (5) Mild CAD: Plan: Continue current medical management. 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 Continue current medications. (7) Pituitary hypogonadism: Plan: Aware. Stable. Continue current medications (8) Pituitary hypothyroidism: Plan: Continue thyroid replacement (9) Pseudoseizures: Plan: Treated with Vimpat (10) Secondary adrenal insufficiency: Plan: We will monitor electrolytes (11) S/P TURP (status post transurethral resection of prostate): Plan: No intervention necessary at this time (12) Atypical chest pain: Plan: Resolved. Telemetry. No evidence of acute coronary syndrome Plan He is willing to to consider short-term rehab placement. Awaiting OT and PT recommendations. Admission and Anticipated Discharge Date Admission Date: December 29, 2022 Subjective Awake, alert and pleasant. He is willing to consider short-term rehab placement at discharge. Potassium corrected to 3.8. Diabetes remains under good control. Lorazepam, gabapentin, meclizine remain on hold. He still has some memory deficits but this may be his baseline Review of Systems Review of Systems: Constitutional-no fever or chills ENT-no blurred vision, no double vision, no epistaxis, no sore throat Respiratory-no cough, no wheezing, no shortness of breath Cardiac-no palpitations, no chest pain, no syncope GI-no nausea, vomiting, diarrhea, melena, hematochezia -no urinary retention, no urinary incontinence, no dysuria, no hematuria Musculoskeletal-no joint pain, no muscle tenderness Skin-no bruising, no rashes, no pruritus Neuro-no isolated weakness, no paresthesia, no weakness Psych-no depression, no anxiety Physical Exam Physical Exam: General-alert. Oriented to name and place. HEENT-head atraumatic and normocephalic, pupils equal and reactive to light, extraocular muscles intact Neck-no lymphadenopathy or thyromegaly, trachea midline Chest-clear to auscultation percussion. No rales wheezing or rhonchi Cardiac-regular rate and rhythm, normal S1 and S2 Abdomen-normal bowel sounds, nontender, no hepatosplenomegaly Extremities-no cyanosis, clubbing, or edema Neuro-cranial nerves II through XII intact, motor and sensory function within normal limits, strength symmetrical no focal deficits Psych-alert. Normal affect Results & Data Results & Data ([facility]) Vital Signs (Past 12 Hours) Vital Signs Temp Pulse Pulse Resp BP BP Pulse Ox 12/30/22 11:54 36.7 C 78 14 132/86 96 12/30/22 08:01 67 12/30/22 07:52 36.5 C 70 14 119/76 96 12/30/22 06:42 36.4 C L 67 18 116/77 95 12/30/22 03:00 36.8 C 71 18 135/82 95 O2 Del Method 12/30/22 11:54 Room Air 12/30/22 08:01 12/30/22 07:52 Room Air 12/30/22 06:42 Room Air 12/30/22 03:00 Room Air Laboratory Results 12/28/22 02:24 12/30/22 07:05 PG Care Time/CCT Total # of Minutes Spent Total Time Spent with Patient: Total time spent is greater than 50% in coordination of care (as documented) at patient's floor/unit and/or counseling patient: Coding Level of Care Code 59547 SUB INP/OBS CARE 3/50MIN Diagnoses Acute alteration in mental status R41.82 DM type 2 (diabetes mellitus, type 2) E11.9 Lumbar stenosis with neurogenic claudication M48.062 Migraine without aura, not intractable, without status migrainosus G43.009 Mild CAD I25.10 Pituitary diabetes insipidus E23.2 Pituitary hypogonadism E23.0 Pituitary hypothyroidism E03.8 Pseudoseizures R56.9 Secondary adrenal insufficiency E27.49 S/P TURP (status post transurethral resection of prostate) Z90.79 Atypical chest pain R07.89
--- NOTE | 2022-12-30 13:08 | Discharge Summary ---
Date of Service December 30, 2022 Admission HPI Per Admitting Provider Anders is a 52-year-old male with past medical history of DM 2, syncope, migraine, pseudoseizures, pituitary DI/hypogonadism/hypothyroidism, depression, BPH with LUTS who presents to the emergency department by ambulance for confusion and chest pain. Patient reportedly was with slurring speech, and was unsteady and unable to ambulate independently to the bathroom. 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 EKG without acute ST/T wave changes. Anders is seen at the bedside in the ER. He is sedated and somnolent, but arouses relatively easily and answers questions appropriately before falling back asleep. He reports he has not taken any benzodiazepines or other sedating medications. He reports his only medication change is having Vimpat increased a couple of days ago. He denies any recreational substance, alcohol use. He reports his long term care phlebotomist was concerned that he was more confused and sedated, and he reports he is felt more somnolent and sedated in the last 24 hours. He reports yesterday he had some chest pain underneath his sternum/chest, this improved by time of arrival to the ER. He denies fever, chills, sweats, chest pain, chest pressure, nausea, vomiting, diarrhea, constipation. Denies focal weakness but feels overall fatigued. Does feel too tired to try to stand. Does not engage in formal strength testing other than hand shaker strength and hip flexion which are grossly intact. Medical History: Reviewed Medications: Reviewed Surgical History: Reviewed Allergies: Reviewed Social History: Reviewed Code Status: Full code Principal Diagnosis Altered mental status due to suspected toxic encephalopathy, hypomagnesemia, hypokalemia Discharge Exam General-alert. Oriented to name and place. HEENT-head atraumatic and normocephalic, pupils equal and reactive to light, extraocular muscles intact Neck-no lymphadenopathy or thyromegaly, trachea midline Chest-clear to auscultation percussion. No rales wheezing or rhonchi Cardiac-regular rate and rhythm, normal S1 and S2 Abdomen-normal bowel sounds, nontender, no hepatosplenomegaly Extremities-no cyanosis, clubbing, or edema Neuro-cranial nerves II through XII intact, motor and sensory function within normal limits, strength symmetrical no focal deficits Psych-alert. Normal affect Discharge Data Allergies Allergy/AdvReac Type Severity Reaction Status Date / Time clindamycin Allergy Intermediate SWELLING Verified 12/22/22 14:51 Iodinated Contrast Media Allergy Intermediate face/eye Verified 12/22/22 14:51 swelling Quinolones Allergy Intermediate HIVES Verified 12/22/22 14:51 Consultations 12/27/22 19:01 ED Decision to Admit Stat Ordered Studies 12/27/22 16:20 CT head/brain wo con Stat Hospital Course (1) Acute alteration in mental status: Toxic encephalopathy from medication use or substance abuse is most likely diagnosis. Multiple medications have been discontinued. He seems to be doing much better now. Continue supportive care. Head CT scan negative on admission. Serum alcohol negative. Urine benzodiazepine:Negative. UA: Noninfected appearing. Denies infectious symptoms including fever, chills, sweats, abdominal pain, cough (2) DM type 2 (diabetes mellitus, type 2): ADA diet. Sliding scale coverage as needed (3) Lumbar stenosis with neurogenic claudication: Supportive care. Avoiding narcotic medication (4) Migraine without aura, not intractable, without status migrainosus: No apparent migraine at this time. (5) Mild CAD: Continue current medical management. 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 Continue current medications. (7) Pituitary hypogonadism: Aware. Stable. Continue current medications (8) Pituitary hypothyroidism: Continue thyroid replacement (9) Pseudoseizures: Treated with Vimpat (10) Secondary adrenal insufficiency: We will monitor electrolytes (11) S/P TURP (status post transurethral resection of prostate): No intervention necessary at this time (12) Atypical chest pain: Resolved. Telemetry. No evidence of acute coronary syndrome Plan T and PT have recommended discharge to home with home health services. He will be discharged home today, December 30 h Total Time Total Time Spent Total Time Spent (In Minutes): 35 minutes Discharge Plan Discharge Items Patient Disposition: Home - Home Health Services Reason For Visit: SEDATION Discharge Diagnosis: Altered mental status due to suspected toxic encephalopathy, hypomagnesemia, hypokalemia Activity: Resume your previous activity Non-emergency contact: Primary Care Provider Call non-emergency contact if: you have any medication questions Follow-up/Referrals: ProLarry MD [Primary Care Provider] - Diet: Carb Consistent or DM2 and Heart Healthy Addtl Attending Provider Instructions: Lorazepam, gabapentin, meclizine have all been discontinued due to neurologic side effects which may have caused your admission to the hospital Pending Studies at Discharge: No Stand-Alone Forms: My [facility], Smoking Cessation Medications and DC Order Prescriptions: Continued fluticasone propionate [Flonase Allergy Relief] 50 mcg/actuation spray,suspension 1 spray intranasal HS PRN (Reason: allergy symptoms) Qty: 16 0RF Rx Instructions: administer into each nostril testosterone 20.25 mg/1.25 gram (1.62 %) gel in metered-dose pump 2 pump TOP PM Qty: 75 5RF Rx Instructions: apply 1 pump amount over max area of EACH upper arm and shoulder PDMP Queried ok to fill 05-27-22 DS lithium carbonate 300 mg tablet 300 mg PO AMHS trazodone 100 mg tablet 100 mg PO HS Norditropin FlexPro 5 mg/1.5 mL (3.3 mg/mL) pen injector 0.3 mg SQ PM Qty: 3 11RF dutasteride [Avodart] 0.5 mg capsule 0.5 mg PO QAM Qty: 90 3RF alfuzosin 10 mg tablet extended release 24 hr 10 mg PO QAM Qty: 90 3RF Rx Instructions: TAKE THIS MED AFTER A MEAL insulin glargine [Lantus Solostar U-100 Insulin] 100 unit/mL (3 mL) insulin pen 10 unit subcut QPM Qty: 15 3RF lacosamide [Vimpat] 50 mg tablet See Rx Instructions .ROUTE .COMPLEX Qty: 90 5RF Rx Instructions: 1 tab po in AM and 2 tabs po in PM; furosemide 40 mg tablet 40 mg PO QAM Qty: 90 3RF lisinopril 5 mg tablet 5 mg PO QDL Qty: 90 3RF metformin 1,000 mg tablet 1,000 mg PO AMPM Qty: 180 3RF atorvastatin 10 mg tablet 10 mg PO QAM 90 Days Qty: 90 1RF Botox 200 unit recon soln See Rx Instructions IM .COMPLEX Qty: 1 3RF Rx Instructions: 155 UNITS IM IN THE FACE AND NECK MUSCLES EVERY 12 WEEKS PER MIGRAINE PROTOCOL cyclobenzaprine 10 mg tablet 10 mg PO BID PRN (Reason: muscle spasm) 30 Days Qty: 60 1RF (DME) OneTouch Verio test strips Strip See Rx Instructions .Route Rx Instructions: Test blood sugar two times daily Rexulti 3 mg tablet 3 mg PO QAM duloxetine 30 mg capsule,delayed release(DR/EC) 30 mg PO QDL Rx Instructions: TOTAL DOSE 90 MG--TAKES WITH 60 MG CAP. mirtazapine [Remeron] 30 mg tablet 30 mg PO HS celecoxib 200 mg capsule 200 mg PO DAILY PRN (Reason: Pain) lacosamide [Vimpat] 100 mg tablet 100 mg PO BID Qty: 60 5RF divalproex 500 mg tablet,delayed release (DR/EC) 1,000 mg PO BID 30 Days Qty: 120 6RF propranolol 120 mg capsule,extended release 24 hr 120 mg PO QPM Qty: 90 2RF Nurtec ODT 75 mg tablet,disintegrating 75 mg PO DAILY PRN (Reason: Migraine Headache) Qty: 8 6RF prazosin [Minipress] 5 mg capsule 5 mg PO HS levothyroxine 200 mcg tablet 200 mcg PO QAM duloxetine 60 mg capsule,delayed release(DR/EC) 60 mg PO QDL Rx Instructions: TOTAL DOSE 90 MG--TAKES WITH 30 MG CAP. cholecalciferol (vitamin D3) 50 mcg (2,000 unit) capsule 50 mcg PO QPM oxycodone-acetaminophen [Percocet] 7.5-325 mg tablet 1 tab PO Q8H PRN (Reason: pain) Qty: 7 0RF albuterol sulfate 90 mcg/actuation HFA aerosol inhaler 1 inh inhalation QID PRN (Reason: Shortness Of Breath Or Wheezing) acetaminophen 325 mg Tablet 650 mg PO Q6H PRN (Reason: pain) Qty: 30 0RF hydrocortisone 10 mg tablet 20 mg PO BID Rx Instructions: TAKE TWO TABLETS IN THE AM AND 1 TABLET IN THE PM. MAY DOUBLE THE DOSE IN TIMES OF STRESS. phenazopyridine [Pyridium] 200 mg tablet 200 mg PO Q8H PRN (Reason: pain) Qty: 10 0RF oxybutynin chloride 5 mg tablet 5 mg PO Q8H PRN (Reason: bladder spasms) Qty: 20 0RF pantoprazole [Protonix] 40 mg tablet,delayed release (DR/EC) 40 mg PO QAM desmopressin [DDAVP] 0.1 mg tablet 0.4 mg PO BID docusate sodium [Colace] 100 mg capsule 100 mg PO BID PRN (Reason: Constipation) Rx Instructions: Take twice daily for 2 weeks, then as needed for constipation. Discontinued meclizine 25 mg tablet 25 mg PO AMPM Qty: 180 3RF lorazepam 0.5 mg tablet 0.5 mg PO QPM PRN (Reason: Anxiety) gabapentin 400 mg capsule See Rx Instructions .ROUTE .COMPLEX Rx Instructions: 400 mg orally; TAKES 400 MG QAM AND AFTERNOON, THEN 800 MG HS. Discharge Orders: Discharge Order (Routine); Ordered 12/30/22 Ordered By: Deshaun Pacheco Admission Data Admit Date/Time: 12/29/22 10:22 Attending Provider: Deshaun Pacheco Admit Provider: Taye Shafer Primary Care Provider: Larry Amaral Other Providers: Taye Shafer Coding Level of Care Code HOSP INP/OBS DISCH >30 MIN Diagnoses Acute alteration in mental status R41.82 DM type 2 (diabetes mellitus, type 2) E11.9 Lumbar stenosis with neurogenic claudication M48.062 Migraine without aura, not intractable, without status migrainosus G43.009 Mild CAD I25.10 Pituitary diabetes insipidus E23.2 Pituitary hypogonadism E23.0 Pituitary hypothyroidism E03.8 Pseudoseizures R56.9 Secondary adrenal insufficiency E27.49 S/P TURP (status post transurethral resection of prostate) Z90.79 Atypical chest pain R07.89
[2022-12-30 16:08] LABS: Valproic Acid, Free 15.4 mg/L (4.8-17.3); Valproic Acid, Total 108.6 mg/L (50.0-100.0)
== END 2022-12-30 15:30 | disposition home health service (06) | DRG 92 ==
LOC: 2N 15:55 → ED 15:55 → SUATTDRO 18:28 → 2N 20:54

== ENCOUNTER 2023-09-28 14:32 | Inpatient (IN) ==
[2023-09-28] MEDS ORDERED: SODIUM CHLORIDE 0.9% 1,000 ML IV ONE (14:38)
[2023-09-28] MEDS ORDERED: VALPROATE SOD 1,000 MG in DEXTROSE 5% 50 ML IV STA (14:40)
[2023-09-28] MEDS ORDERED: LORazepam 1 MG/1 ML SYR ED Inj Use IV STA ×2 (14:41→17:46)
--- NOTE | 2023-09-28 14:44 | Emergency Department Note ---
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 They were preparing the patient for discharge when he had a second breakthrough seizure and so was brought down to the emergency department. The seizure had improved and he was alert and oriented in the hallway and had described that he did take his Depakote and lacosamide today but upon entering the room he had a third seizure where the patient exhibited tonic stiffening of extremities and clenching of jaw and closing of eyes for approximately 2 minutes. He was given 1 mg of IV Ativan and this broke this episode. He did exhibit a postictal period where he would stare blankly with eyes wide open without speech though he would direct his gaze to voice. Given 3 breakthrough seizures within several hours he was given an IV dose of Depakote of 1000 mg, (the patient is on 1000 mg of Depakote twice daily). Review of the patient's outpatient records demonstrate patient had a reassuring neurology follow-up on 09/16 and no changes were recommended at that time to the patient's patient dosing of Depakote 1000 mg twice daily and lacosamide 150 mg twice daily. The patient is afebrile with stable vital signs. He appears clinically dry. Upon resolution of seizure activity he is moving all extremities equally without focal neurologic deficits. EKG without overt acute ischemia. WBC, hemoglobin and platelets within normal limits. Chemistry without metabolic acidosis. Magnesium is 1.4 with IV repletion initiated. LFTs are unremarkable. Random Depakote level was performed and she on the upper limit of therapeutic range though this is not a trough. Otherwise, the patient's lithium level was undetectable. Following administration of Depakote the patient was observed and had no recurrence of breakthrough seizures. He was noted to be somewhat drowsy but spontaneously alert and oriented answering questions appropriately interacting with his family over the bedside. However given the patient's several repeat episodes he does agree with plan for admission for further observation. Case was discussed with Dr. Shafer, [facility] hospitalist, who will evaluate the patient for admission. Unfortunately, subsequently the patient did have 2 repeat seizure episodes. The first apparently happened very quickly where the patient's fianc in the room did not have the opportunity to inform nursing until afterwards. A second occurred and was noticed by RN where he had desaturation on telemetry and I was called to the room and found the patient in a similar tonic seizure episode as previously. He was given 1 mg of Ativan and this seizure had resolved with similar postictal. Open eyes open and blank stare lasting approximately 1-[address] At this time [address] of the head was ordered to further evaluate the patient's breakthrough seizures and this was negative for acute normalities. And thyroid studies also ordered. Random cortisol as well given chronic adrenal insufficiency in the setting of panhypopituitarism. Patient was administered 100 mg of IV hydrocortisone for stress dosing given the patient's procedure and now with recurrent breakthrough seizures. Subsequently case was discussed with Dr. Ordonez, [place] neurology who is familiar with the patient. Agrees with initial loading of Depakote and given recurrent since then recommends additional IV dosing of lacosamide of 100 mg. Otherwise can administer his evening Depakote and lacosamide as scheduled. Suspect that the patient's breakthrough seizures may have been provoked in the setting of his outpatient procedure today. No need to obtain EEG at this time as patient's seizure activity is clearly identified by clinical exam and when the patient recovers he is conversant and interactive at baseline. If the patient's mental status is questionable in the morning then spot EEG could be considered. Subsequently the patient did remain stable from a seizure standpoint. Admitting team was updated regarding the patient's status and neurology recommendations. Further management per admitting team. Of note, the patient's ammonia did result marginally elevated above normal limits at 74. While not significantly elevated this is increased from prior values. Unclear if role for evaluation for carnitine deficiency and/or supplementation. Triage Nursing notes reviewed and agree them. Prior/external medical records reviewed per HPI above. Vital Signs: reviewed Differential diagnosis: Epilepsy, infection, hypoglycemia, electrolyte abnormalities, cardiac sources, intracerebral event, trauma, toxicologic, neurologic, syncope, as well as other pathologies. ER treatment provided: See below. Diagnostics interpreted by me: ECG: Normal sinus rhythm, 81 bpm, no ectopy, no overt ST elevation or depression, QTc 418, QRS 106 Cardiac Monitoring: An order for continuous cardiac monitoring was placed and demonstrated Normal sinus rhythm, 81 bpm, no ectopy. Laboratory studies: See below Imaging studies: See below Consultation(s): Dr. Shafer, [facility] hospitalist. Dr. 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 They were preparing the patient for discharge when he had a second breakthrough seizure and so was brought down to the emergency department. The seizure had improved and he was alert and oriented in the hallway and had described that he did take his Depakote and lacosamide today but upon entering the room he had a third seizure where the patient exhibited tonic stiffening of extremities and clenching of jaw and closing of eyes for approximately 2 minutes. He was given 1 mg of IV Ativan and this broke this episode. He did exhibit a postictal period where he would stare blankly with eyes wide open without speech though he would direct his gaze to voice. Given 3 breakthrough seizures within several hours he was given an IV dose of Depakote of 1000 mg, (the patient is on 1000 mg of Depakote twice daily). Review of the patient's outpatient records demonstrate patient had a reassuring neurology follow-up on 09/16 and no changes were recommended at that time to the patient's patient dosing of Depakote 1000 mg twice daily and lacosamide 150 mg twice daily. ROS: See above HPI for pertinent positives & negatives. A total of 10 systems reviewed and were otherwise negative. VITALS:See Below PHYSICAL EXAMINATION: GENERAL: Awake, alert, fatigued-appearing, in no distress HENT: Normocephalic, atraumatic. Oropharynx with dry mucous membranes and otherwise unremarkable. EYES: Normal conjunctiva. Sclera non-icteric. EOMI. No nystamgus. PEARRL. NECK: Supple. No nuchal rigidity. FROM. No JVD. RESPIRATORY: Clear to auscultation. CARDIAC: Regular rate, normal rhythm. Extremities warm and well perfused. Pulses equal. ABDOMEN: Soft, non-distended. No tenderness to palpation. No rebound or guarding. No masses. RECTAL: Deferred. MUSCULOSKELETAL: Chest examination reveals no tenderness. The back is symmetrical on inspection without obvious abnormality. There is no CVA tenderness to palpation. No joint edema. LOWER EXTREMITIES: Calves are equal size bilaterally and non-tender. No edema. No discoloration. NEURO: No focal sensory or motor deficits noted. SKIN: No rash or jaundice noted. ED COURSE: Critical Care: I have personally spent greater than 75 minutes of critical care time in the direct management of this patient. This includes bedside care, interpretation of diagnostic studies, and testing, discussion with consultants, patient, and family members, and other required patient management activities. This 75 minutes is in excess of all separately billable procedures. Zackery Carbone MD Past Med/Surg History Medical History BPH (benign prostatic hyperplasia) Diabetes Hyperactive gag reflex BRCA gene positive tested positive in Aug 2023 [place] > reason for up coming EGD Family history of BRCA gene mutation PTSD (post-traumatic stress disorder) Epidural lipomatosis Chronic left sacroiliac pain Hypernatremia Leukocytosis Benzodiazepine overdose none since Nov 2022 Presence of cardiac device Loop recorder > last checked fall 2022 Hx of fracture of foot Sep 2022- right > cast since removed > still gets painful Acute renal failure Fracture of fibula, right, closed Lumbar stenosis with neurogenic claudication Neck pain Cerebral concussion May 2023 during seizure > no further issues Syncope and collapse Reason for loop recorder No recent issues since bed bound from femur fracture in Sep 2022 per patient Orthostatic hypotension Mild CAD SCOTT (dyspnea on exertion) Pseudoseizures Sensorineural hearing loss of both ears Rectal bleeding on occasion History of COVID-19 10/2021 - fatigue; resolved. Mitral valve regurgitation follows with Dr. Phillips DM type 2 (diabetes mellitus, type 2) Vertigo BPH with obstruction/lower urinary tract symptoms Migraine without aura, not intractable, without status migrainosus Acute kidney injury September 2022 (s/p grand mal seizure) Nonocclusive coronary atherosclerosis of [place] coronary artery Panhypopituitarism Weight gain Lumbar radiculopathy HTN (hypertension) SOB (shortness of breath) on exertion Lower extremity edema Elevated LFTs Bilateral hand pain Left shoulder pain Lumbar spine pain Pituitary neoplasm Dx'ed in 2001- s/p surgical resection and XRT Repeat surgery in 2018 secondary to tumor regrowth at [facility] Kidney stones HX Prostate mass benign Bladder mass benign Depression Growth hormone deficiency Bipolar I disorder Migraine without aura and without status migrainosus, not intractable Insomnia Obstructive sleep apnea of adult cpap > non compliant per pt Pituitary diabetes insipidus Follows with endocrinology- on DDAVP Pituitary hypogonadism Follows with endocrinology- Pituitary hypothyroidism Follows with endocrinology- Secondary adrenal insufficiency Seizure disorder last seizure grand mal early Aug 2023 > follows with Dr. Ordonez and [facility] [place] [facility] Tremor Surgical History S/P TURP (status post transurethral resection of prostate) History of lumbar fusion [facility] Jul 2022 History of cardiac cath 07/2021 - no stents S/P epidural steroid injection History of lithotripsy Status post right foot surgery replaced 5th metatarsal--hardware in place History of bladder surgery remove mass History of prostate surgery remove mass History of colonoscopy History of esophagogastroduodenoscopy (EGD) History of tooth extraction History of wisdom tooth extraction History of brain surgery x2---2004 @ [facility], 2018 @ [facility]--for brain tumors > caused epilepsy Family History Grandmother (Paternal) Family history of diabetes mellitus Aunt Family history of diabetes mellitus Uncle Family history of diabetes mellitus Father Prostate cancer Heart disease Mother Cardiac disorder Grandmother (Maternal) Myocardial infarction Other Asthma Cancer Hypertension No family history of adverse response to anesthesia No family history of bleeding disorder Stroke Denies family history of Ovarian cancer Breast cancer Colorectal cancer Social History Smoking Status: Unknown if ever smoked Tobacco Type: Smokeless Tobacco (Dip or Chew) Second Hand Exposure: No; Do You Dip or Chew Tobacco: Yes (advised npo status); Hx Alcohol Use: No Hx Substance Use: No Preferred Language: Slovenian Communication Ability: Effective Communication Ability Comment: Unable to obtain due to patient condition. Visual Impairment: No Limitations Hearing Ability: Normal Domestic Laundry Worker Required: No Beliefs That Will Affect Care: None marital status: Single Current Living Situation: Significant Other current occupational status: unemployed Feels Safe at Home: Yes Childhood Exposure to Second-Hand Smoke: Yes (parents smoked) Seatbelt Use: always Assistive Devices: Glasses Allergies Allergies Allergy/AdvReac Type Severity Reaction Status Date / Time clindamycin Allergy Intermediate SWELLING Verified 09/28/23 17:12 Iodinated Contrast Media Allergy Intermediate face/eye Verified 09/28/23 17:12 swelling Quinolones Allergy Intermediate HIVES Verified 09/28/23 17:12 Home Meds Home Medications Medication Instructions Recorded Confirmed lithium carbonate 300 mg tablet 300 mg PO AMHS 06/04/22 09/28/23 trazodone 100 mg tablet 100 mg PO HS 06/04/22 09/28/23 brexpiprazole 3 mg tablet (Rexulti) 3 mg PO QAM 06/23/22 09/28/23 celecoxib 200 mg capsule 200 mg PO DAILY PRN Pain 06/23/22 09/28/23 duloxetine 30 mg capsule,delayed 30 mg PO HS 06/23/22 09/28/23 release mirtazapine 30 mg tablet (Remeron) 30 mg PO HS 06/23/22 09/28/23 blood sugar diagnostic (OneTouch 08/06/22 09/28/23 Verio test strips) duloxetine 60 mg capsule,delayed 60 mg PO QAM 11/09/22 09/28/23 release prazosin 5 mg capsule (Minipress) 5 mg PO HS 11/09/22 09/28/23 docusate sodium 100 mg capsule 100 mg PO BID PRN Constipation 12/27/22 09/28/23 (Colace) ibuprofen 200 mg tablet (Advil) 400 mg PO Q6H PRN Pain 02/21/23 09/28/23 metformin 1,000 mg tablet 1,000 mg PO BID 05/23/23 09/28/23 insulin glargine 100 unit/mL (3 12 unit subcut PM 06/04/23 09/28/23 mL) subcutaneous pen (Lantus Solostar U-100 Insulin) lisinopril 5 mg tablet 5 mg PO QAM 06/04/23 09/28/23 hydrocodone 10 mg-acetaminophen 1 tab PO Q6H PRN Pain 08/03/23 09/28/23 325 mg tablet lorazepam 0.5 mg tablet 0.5 mg PO DAILY PRN Seizure 09/19/23 09/28/23 Activity rosuvastatin 20 mg tablet 20 mg PO QAM 09/19/23 09/28/23 Previous Rx's Medication Instructions Recorded cyclobenzaprine 10 mg tablet 10 mg PO BID PRN muscle spasm 30 09/18/20 days #60 tabs acetaminophen 325 mg tablet 650 mg (2 x 325 mg) PO Q6H PRN 03/01/22 pain #30 tabs alfuzosin 10 mg tablet,extended 10 mg PO QAM #90 tabs 08/05/22 release 24 hr oxybutynin chloride 5 mg tablet 5 mg PO Q8H PRN bladder spasms #20 12/06/22 tabs onabotulinumtoxinA 200 unit See Rx Instructions IM .COMPLEX #1 12/28/22 solution for injection (Botox) ea fluticasone propionate 50 1 spray intranasal HS PRN allergy 03/16/23 mcg/actuation nasal symptoms #16 grams spray,suspension (Flonase Allergy Relief) somatropin 5 mg/1.5 mL (3.3 mg/mL) 0.3 mg (0.09 mL) subcut PM #2 03/17/23 subcutaneous pen injector syringes (Norditropin FlexPro) dutasteride 0.5 mg capsule 0.5 mg PO QAM #90 caps 04/04/23 (Avodart) testosterone 2 pump topical PM #75 grams 04/08/23 FreeStyle Rosalie 2 Romulus (flash #1 ea 05/13/23 glucose scanning reader) semaglutide (weight loss) 0.5 0.5 mg (0.5 mL) subcut Q7D #2 mL 06/17/23 mg/0.5 mL subcutaneous pen injector (Wegovy) FreeStyle Rosalie 2 Sensor (flash #6 ea 06/24/23 glucose sensor) ferrous sulfate 325 mg (65 mg 325 mg PO Q OTHER DAY #45 tabs 08/03/23 iron) tablet cholecalciferol (vitamin D3) 50 50 mcg PO QPM #90 caps 08/29/23 mcg (2,000 unit) capsule furosemide 20 mg tablet 20 mg PO QAM #30 tabs 08/29/23 levothyroxine 200 mcg tablet 200 mcg PO QAM #30 tabs 08/29/23 potassium chloride 20 mEq 20 meq PO QAM #90 tabs 08/30/23 tablet,extended release hydrocortisone 10 mg tablet See Rx Instructions PO BID #135 08/31/23 tabs desmopressin 0.1 mg tablet (DDAVP) 0.4 mg (4 x 0.1 mg) PO BID #240 09/02/23 tabs albuterol sulfate 90 mcg/actuation 1 inh inhalation QID PRN Shortness 09/08/23 aerosol inhaler Of Breath Or Wheezing #6.7 grams divalproex 500 mg tablet,delayed 1,000 mg (2 x 500 mg) PO BID 30 09/14/23 release days #120 tabs lacosamide 150 mg tablet 150 mg PO BID #60 tabs 09/14/23 propranolol 120 mg capsule,24 120 mg PO QPM #30 caps 09/14/23 hr,extended release rimegepant 75 mg disintegrating 75 mg PO DAILY PRN Migraine 09/14/23 tablet (Nurtec ODT) Headache #8 tabs somatropin 12 mg/mL (36 unit/mL) 0.3 mg (0.025 mL) subcut DAILY #2 09/16/23 subcutaneous cartridge ea pantoprazole 40 mg tablet,delayed 40 mg PO BID #60 tabs 09/28/23 release Results & Data (ED) Vital Signs Vital Signs - 24 hr 09/28/23 14:34 09/28/23 14:34 09/28/23 14:38 Temperature 36.9 C Temperature Source Oral Pulse Rate 83 84 Pulse Rate from SpO2 Sensor Respiratory Rate 17 Respiratory Effort / Characteristics Non-Labored Spontaneous Respiratory Depth Normal Respiratory Pattern Regular Blood Pressure 136/81 Blood Pressure Mean 99 Pulse Oximetry 97 97 Oxygen Delivery Method Room Air Room Air Oxygen Flow Rate 0 Sepsis Recent Fever Within 48 Hours No Sepsis New/Unexplained Change in Mental Status N/A Sepsis Action Taken by Nursing No Action Required Oxygen Flow Rate - Titration 0 09/28/23 15:00 09/28/23 15:15 09/28/23 15:30 Temperature Temperature Source Pulse Rate 76 74 73 Pulse Rate from SpO2 Sensor 77 75 73 Respiratory Rate 17 15 18 Respiratory Effort / Characteristics Respiratory Depth Respiratory Pattern Blood Pressure 136/95 120/79 111/84 Blood Pressure Mean 108 92 93 Pulse Oximetry 98 98 96 Oxygen Delivery Method Nasal Cannula Nasal Cannula Nasal Cannula Oxygen Flow Rate Sepsis Recent Fever Within 48 Hours Sepsis New/Unexplained Change in Mental Status Sepsis Action Taken by Nursing Oxygen Flow Rate - Titration 09/28/23 15:45 09/28/23 16:00 09/28/23 16:16 Temperature Temperature Source Pulse Rate 72 65 73 Pulse Rate from SpO2 Sensor 70 66 Respiratory Rate 18 19 17 Respiratory Effort / Characteristics Respiratory Depth Respiratory Pattern Blood Pressure 123/79 139/79 134/94 Blood Pressure Mean 93 99 107 Pulse Oximetry 96 96 96 Oxygen Delivery Method Nasal Cannula Nasal Cannula Nasal Cannula Oxygen Flow Rate Sepsis Recent Fever Within 48 Hours Sepsis New/Unexplained Change in Mental Status Sepsis Action Taken by Nursing Oxygen Flow Rate - Titration 09/28/23 16:30 09/28/23 16:45 09/28/23 17:00 Temperature Temperature Source Pulse Rate 75 68 73 Pulse Rate from SpO2 Sensor 68 73 Respiratory Rate 16 18 17 Respiratory Effort / Characteristics Respiratory Depth Respiratory Pattern Blood Pressure 146/85 H 139/73 153/85 H Blood Pressure Mean 105 95 107 Pulse Oximetry 96 95 96 Oxygen Delivery Method Nasal Cannula Nasal Cannula Nasal Cannula Oxygen Flow Rate 2 2 Sepsis Recent Fever Within 48 Hours Sepsis New/Unexplained Change in Mental Status Sepsis Action Taken by Nursing Oxygen Flow Rate - Titration 09/28/23 17:16 09/28/23 17:30 09/28/23 17:45 Temperature Temperature Source Pulse Rate 71 72 76 Pulse Rate from SpO2 Sensor 72 71 75 Respiratory Rate 18 16 21 Respiratory Effort / Characteristics Respiratory Depth Respiratory Pattern Blood Pressure 132/100 154/89 H 151/85 H Blood Pressure Mean 110 110 107 Pulse Oximetry 96 96 100 Oxygen Delivery Method Nasal Cannula Nasal Cannula Nasal Cannula Oxygen Flow Rate 2 2 2 Sepsis Recent Fever Within 48 Hours Sepsis New/Unexplained Change in Mental Status Sepsis Action Taken by Nursing Oxygen Flow Rate - Titration 09/28/23 18:00 09/28/23 18:32 09/28/23 18:45 Temperature Temperature Source Pulse Rate 75 75 73 Pulse Rate from SpO2 Sensor 75 77 73 Respiratory Rate 18 17 17 Respiratory Effort / Characteristics Respiratory Depth Respiratory Pattern Blood Pressure 143/82 H 141/80 H 136/87 Blood Pressure Mean 102 100 103 Pulse Oximetry 94 95 94 Oxygen Delivery Method Nasal Cannula Nasal Cannula Nasal Cannula Oxygen Flow Rate 2 2 Sepsis Recent Fever Within 48 Hours Sepsis New/Unexplained Change in Mental Status Sepsis Action Taken by Nursing Oxygen Flow Rate - Titration 09/28/23 19:00 09/28/23 19:08 09/28/23 19:15 Temperature Temperature Source Pulse Rate 72 70 69 Pulse Rate from SpO2 Sensor 72 70 Respiratory Rate 19 19 Respiratory Effort / Characteristics Respiratory Depth Respiratory Pattern Blood Pressure 129/91 136/89 Blood Pressure Mean 103 104 Pulse Oximetry 95 92 Oxygen Delivery Method Nasal Cannula Oxygen Flow Rate Sepsis Recent Fever Within 48 Hours Sepsis New/Unexplained Change in Mental Status Sepsis Action Taken by Nursing Oxygen Flow Rate - Titration Laboratory Data Attestation: I reviewed the patient's lab results. 09/28/23 14:52 09/28/23 14:52 Lab Results 09/28/23 09/28/23 09/28/23 Range/Units 14:52 18:39 19:04 WBC 10.70 (4.8-10.8) K/ul RBC 4.73 (4.70-6.10) M/uL Hgb 14.3 (14.0-18.0) g/dl Hct 40.8 L (42.0-52.0) % MCV 86.3 (80.0-100.0) fL MCH 30.2 (25.0-34.0) pg MCHC 35.0 (32.0-36.0) g/dL RDW Std Deviation 42.2 (36.4-46.3) fL RDW Coeff of [place] 13.6 (11.5-14.5) % Plt Count 153 (130-400) K/uL MPV 8.4 L (9.4-12.4) fL Immature Gran % (Auto) 2.1 % Neut % (Auto) 60.2 % Lymph % (Auto) 28.5 % [place] % (Auto) 6.9 % Eos % (Auto) 1.7 % Baso % (Auto) 0.6 % Neut # (Auto) 6.45 (1.40-6.50) K/uL Lymph # (Auto) 3.05 (1.20-3.40) K/uL [place] # (Auto) 0.74 H (0.11-0.59) K/uL Eos # (Auto) 0.18 (0.00-0.50) K/uL Baso # (Auto) 0.06 (0.00-0.20) K/uL Immature Gran # (Auto) 0.22 H (0.01-0.20) K/uL Absolute Nucleated RBC 0.02 (0.00-0.12) K/uL Nucleated RBC % (auto) 0.2 % Sodium 136 (136-145) mmol/L Potassium 3.9 (3.5-5.1) mmol/L Chloride 100 (98-107) mmol/L Carbon Dioxide 28 (21-32) mmol/L Anion Gap 8 (3-11) BUN 11 (6-23) mg/dl Creatinine 0.99 (0.6-1.4) mg/dl Est Cr Clr Drug Dosing 111.9 ml/min Est GFR ( Amer) 99.0 ml/min Est GFR (Non-Af Amer) 85.4 ml/min BUN/Creatinine Ratio 11.1 (10-20) Glucose 99 (70-99(Fasting)) mg/dl Calcium 8.9 (8.6-10.3) mg/dl Phosphorus 3.5 (2.5-4.9) mg/dl Magnesium 1.4 L (1.7-2.4) mg/dl Total Bilirubin 0.5 (0.2-1.0) mg/dl AST 13 (13-39) U/L ALT 12 (7-52) U/L Alkaline Phosphatase 51 (34-104) U/L Ammonia 74.0 H (18-72) umol/L Total Creatine Kinase 124 (30-223) U/L Total Protein 6.3 (6.0-8.3) gm/dl Albumin 4.0 (3.4-5.0) gm/dl Globulin 2.3 L (2.5-4.0) gm/dl Albumin/Globulin Ratio 1.7 (0.9-2) TSH 0.010 L (0.300-4.500) uIu/ml Free T4 1.47 (0.61-1.60) ng/dl Free T3 2.81 (2.3-4.2) pg/ml Random Cortisol 7.32 mcg/dl Urine Color Yellow Urine Appearance Clear (Clear) Urine pH 6.0 (4.5-7.5) Ur Specific [place] 1.022 (1.000-1.030) Urine Protein Trace H (Negative) Urine Glucose (UA) Negative (Negative) Urine Ketones Trace H (Negative) Urine Blood Negative (Negative) Urine Nitrite Negative (Negative) Urine Bilirubin Negative (Negative) Urine Urobilinogen Negative (Negative) Ur Leukocyte Esterase Negative (Negative) Urine WBC (Auto) 1-5 (0-5) /hpf Urine RBC (Auto) 0-4 (0-4) /hpf U Hyaline Cast (Auto) 5-10 H (0-5) /lpf U Epithel Cells (Auto) 20-30 H (0-5) /lpf Urine Bacteria (Auto) Negative (Negative) Valproic Acid 93 (50-100) mcg/ml [place] < 0.1 L (0.6-1.2) mmol/L Administered Medications Albuterol (Albuterol Hfa 8 Gm Inhaler) 1 puffs INH QID PRN PRN Reason: Shortness Of Breath Or Wheezin Stop: 10/28/23 22:06 Last Admin: 09/28/23 23:06 Dose: 1 puffs Documented By: MAEGAN Desmopressin Acetate (Desmopressin Acetate 0.1 Mg Tab) 0.4 mg PO BID [facility] Stop: 10/28/23 22:06 Last Admin: 09/28/23 23:07 Dose: 0.4 mg Documented By: MAEGAN Divalproex Sodium (Divalproex Delay Release 500 Mg Tab) 1,000 mg PO BID OBDULIO Stop: 10/28/23 22:06 Last Admin: 09/28/23 23:09 Dose: 1,000 mg Documented By: MAEGAN Enoxaparin Sodium (Enoxaparin Inj 40 Mg/0.4 Ml Syr) 40 mg SQ HS OBDULIO Stop: 10/28/23 22:06 Last Admin: 09/28/23 23:10 Dose: 40 mg Documented By: MAEGAN Lorazepam 2 mg/ Syringe 2 mls @ 2 mls/min IV PRN PRN PRN Reason: Seizures Stop: 10/28/23 22:06 Last Admin: 09/28/23 23:20 Dose: 2 mls/min Documented By: MAEGAN Lacosamide (Lacosamide 50 Mg Tablet) 150 mg PO BID OBDULIO Stop: 10/28/23 22:06 Last Admin: 09/28/23 23:07 Dose: 150 mg Documented By: MAEGAN Toyei Carbonate (Toyei Carbonate 300 Mg Tab) 300 mg PO BID OBDULIO Stop: 10/28/23 22:06 Last Admin: 09/28/23 23:09 Dose: 300 mg Documented By: MAEGAN Mirtazapine (Mirtazapine Tab 15 Mg Tab) 30 mg PO HS OBDULIO Stop: 10/28/23 22:06 Last Admin: 09/28/23 23:10 Dose: 30 mg Documented By: MAEGAN Pantoprazole Sodium (Pantoprazole 40 Mg Tab) 40 mg PO BID OBDULIO Stop: 10/28/23 22:06 Last Admin: 09/28/23 23:08 Dose: 40 mg Documented By: MAEGAN Prazosin HCl (Prazosin Hcl 1 Mg Cap) 5 mg PO HS OBDULIO Stop: 10/28/23 22:06 Last Admin: 09/28/23 23:08 Dose: 5 mg Documented By: MAEGAN Propranolol HCl (Propranolol Hcl 60 Mg La Cap) 120 mg PO QPM OBDULIO Stop: 10/28/23 22:06 Last Admin: 09/28/23 23:11 Dose: 120 mg Documented By: MAEGAN Discontinued Medications Hydrocortisone Sodium Succinate (Hydrocortisone Sod Succinate 100 Mg/2 Ml Vial) 100 mg IV NOW STA Stop: 09/28/23 17:54 Last Admin: 09/28/23 18:34 Dose: 100 mg Documented By: OSBALDO Sodium Chloride (Nss) 1,000 mls @ 999 mls/hr IV .Q1H1M ONE Stop: 09/28/23 15:38 Last Infusion: 09/28/23 16:40 Dose: Infused Documented By: Admin: 09/28/23 14:46 Dose: 999 mls/hr Documented By: BRADLY Valproic Acid 1,000 mg/ (Dextrose) 60 mls @ 55 mls/hr IV NOW STA Stop: 09/28/23 15:45 Last Infusion: 09/28/23 16:40 Dose: Infused Documented By: Admin: 09/28/23 15:26 Dose: 55 mls/hr Documented By: BRADLY Magnesium Sulfate/Dextrose (Magnesium Sulfate / D5w) 1 gm in 100 mls @ 200 mls/hr IV Q30M OBDULIO Stop: 09/28/23 17:08 Last Infusion: 09/28/23 17:44 Dose: Infused Documented By: Admin: 09/28/23 17:16 Dose: 200 mls/hr Documented By: Infusion: 09/28/23 17:15 Dose: Infused Documented By: Admin: 09/28/23 16:45 Dose: 200 mls/hr Documented By: OSBALDO Magnesium Sulfate/Dextrose (Magnesium Sulfate / D5w) 1 gm in 100 mls @ 200 mls/hr IV Q30M OBDULIO Stop: 09/28/23 18:53 Last Infusion: 09/28/23 23:21 Dose: Infused Documented By: Admin: 09/28/23 19:45 Dose: 200 mls/hr Documented By: Infusion: 09/28/23 19:45 Dose: Infused Documented By: Admin: 09/28/23 19:15 Dose: 200 mls/hr Documented By: OSBALDO Lacosamide 100 mg/ Sodium (Chloride) 60 mls @ 120 mls/hr IV NOW STA Stop: 09/28/23 18:04 Last Infusion: 09/28/23 19:18 Dose: Infused Documented By: Admin: 09/28/23 18:47 Dose: 120 mls/hr Documented By: OSBALDO Lorazepam (Lorazepam 1 Mg/1 Ml Syr Ed Inj Use) 1 mg IV ONE STA Stop: 09/28/23 14:42 Last Admin: 09/28/23 14:30 Dose: 1 mg Documented By: MARK Lorazepam (Lorazepam 2 Mg/1 Ml Vial) Confirm Administered Dose 2 mg .ROUTE .STK- MED ONE Stop: 09/28/23 17:44 Last Admin: 09/28/23 17:47 Dose: Not Given Documented By: OSBALDO Lorazepam (Lorazepam 1 Mg/1 Ml Syr Ed Inj Use) 1 mg IV ONE STA Stop: 09/28/23 17:47 Last Admin: 09/28/23 17:47 Dose: 1 mg Documented By: OSBALDO Lorazepam (Lorazepam 2 Mg/1 Ml Vial) Confirm Administered Dose 2 mg .ROUTE .STK- MED ONE Stop: 09/28/23 23:21 Last Admin: 09/28/23 23:24 Dose: Not Given Documented By: MAEGAN Imaging Data Radiologist's Impression: Head CT 09/28/23 17:48 CT head/brain wo con CLINICAL HISTORY: 53 years-old Male with Recurrent seizures, ho neoplas resec, panhypopit. Acute seizure like activity TECHNIQUE: Multiple axial CT images of the head were obtained without contrast. A dose lowering technique was utilized adhering to the principles of ALARA. CT DOSE: 547.75 mGy.cm COMPARISON: 06/04/2023. FINDINGS: No acute intracranial hemorrhage, midline shift, intracranial mass, hydrocephalus, territorial ischemia or abnormal extra-axial collection. Garrett- cisterna magna redemonstrated. The calvarium is intact. The paranasal sinuses, mastoid air cells, and middle ear cavities are clear. IMPRESSION: No acute intracranial abnormality. ACT 112: Negative or not required by law. The above report was generated using voice recognition software. It may contain grammatical, syntax or spelling errors. Electronically signed by: Bean Tolentino M.D. 09/28/2023 6:25 PM Discharge Plan Visit Data Chief Complaint: Seizure ED Provider: Zackery Carbone Discharge Problem: Recurrent seizures, Hypomagnesemia, Serum ammonia increased, Panhypopituitarism Discharge Instructions Interventions: ED Discharge Assessment Last Done: 09/28/23 22:08
[2023-09-28 15:07] LABS: Basophils # (auto) 0.06 K/uL (0.00-0.20); Basophils % (auto) 0.6 %; Eosinophils # (auto) 0.18 K/uL (0.00-0.50); Eosinophils % (auto) 1.7 %; Hematocrit (blood only) 40.8 % (42.0-52.0); Hemoglobin 14.3 g/dl (14.0-18.0); Immature Granulocytes # (auto) 0.22 K/uL (0.01-0.20); Immature Granulocytes % (auto) 2.1 %; Lymphocytes # (auto) 3.05 K/uL (1.20-3.40); Lymphocytes % (auto) 28.5 %; Mean Corpuscular Hemoglobin 30.2 pg (25.0-34.0); Mean Corpuscular Volume 86.3 fL (80.0-100.0); Mean Platelet Volume 8.4 fL (9.4-12.4); Monocytes # (auto) 0.74 K/uL (0.11-0.59); Monocytes % (auto) 6.9 %; Neutrophils # (auto) 6.45 K/uL (1.40-6.50); Neutrophils % (auto) 60.2 %; Nucleated RBC # (auto) 0.02 K/uL (0.00-0.12); Nucleated RBC % (auto) 0.2 %; Platelet Count 153 K/uL (130-400); RDW Coefficient of Variation 13.6 % (11.5-14.5); RDW Standard Deviation 42.2 fL (36.4-46.3); Red Blood Count 4.73 M/uL (4.70-6.10)
[2023-09-28 15:26] LABS: Albumin Globulin Ratio 1.7 (0.9-2); BUN Creatinine Ratio 11.1 (10-20); Bilirubin,Total 0.5 mg/dl (0.2-1.0); Calcium 8.9 mg/dl (8.6-10.3); Creatinine Clr Calc Pharmacy 111.9 ml/min; Est GFR (Non-African American) 85.4 ml/min; Globulin 2.3 gm/dl (2.5-4.0); Magnesium 1.4 mg/dl (1.7-2.4); Phosphorus 3.5 mg/dl (2.5-4.9); Potassium 3.9 mmol/L (3.5-5.1); Total Protein 6.3 gm/dl (6.0-8.3)
[2023-09-28 16:15] LABS: Lithium < 0.1 mmol/L (0.6-1.2)
[2023-09-28 16:16] LABS: Valproic Acid 93 mcg/ml (50-100)
--- NOTE | 2023-09-28 16:18 | Electrocardiogram Report ---
Test Reason : Blood Pressure : / mmHG Vent. Rate : 081 BPM Atrial Rate : 081 BPM P-R Int : 152 ms QRS Dur : 106 ms QT Int : 360 ms P-R-T Axes : 054 -03 020 degrees QTc Int : 418 ms Poor data quality, interpretation may be adversely affected Normal sinus rhythm Nonspecific ST abnormality Abnormal ECG When compared with ECG of 04-JUN-2023 19:13, No significant change was found Confirmed by Larry Phillips ([id number]) on 09/28/2023 4:17:43 PM Referred By: Confirmed By:Larry Phillips
[2023-09-28] MEDS: MAGNESIUM SULFATE / D5W 1 GM/100 ML BAG IV SCH ×4 (16:45→19:45)
[2023-09-28] MEDS ORDERED: LORazepam 2 MG/1 ML VIAL ONE ×2 (17:43→23:20)
[2023-09-28] MEDS ORDERED: HYDROCORTISONE SOD SUCCINATE 100 MG/2 ML VIAL IV STA (17:53)
[2023-09-28] MEDS ORDERED: LACOSAMIDE 100 MG in SODIUM CHLORIDE 0.9% 50 ML IV STA (18:03)
--- NOTE | 2023-09-28 18:12 | History & Physical Report ---
Date of Service September 28, 2023 Assessment & Plan (1) Recurrent seizures: Plan: Patient was a code purple for seizure in the PACU at 1138 on 09/28 following an endoscopy Seized again at 1345, and then 3 additional times in the ED Received lorazepam 1 mg IV, Depakote 1000 mg, hydrocortisone 100 mg, and lacosamide 100 mg in the ED Hx of recurrent seizures Appreciate neurology consult Keep n.p.o. for now Glucose 99 on arrival Ammonia 74 Continuous telemetry monitoring Supplemental oxygen as needed with target SPO2 >94% Per Neurology, okay to give evening dose of Depakote 1000 mg for a daily total of 3000 mg; also okay to give evening dose of lacosamide 150mg Lacosamide level was drawn prior to IV dose given; pending Valproic acid level WNL at 93 Ativan 2 mg is bacon slicer as needed for active seizures; q5min x 2 max doses Note: CAUTION respiratory depression with continued benzodiazepine use; patient is DNR/DNI and wants no breathing tube under any circumstances Held evening dose of trazodone; reassess prior to evening dose given on 09/[address] Appreciate neurology consult A.m. CBC, BMP, Mag (2) Hypomagnesemia: Plan: Mag 1.4 on arrival Patient given 3 g in the ED Recheck with a.m. mag (3) Diabetes: Plan: Glucose 99 on arrival A1c was 6.0% on 05/13/2020 We will hold Lantus 12 units HS in the setting of recurrent seizures Monitor for hypoglycemia Loose SSI; BSG ACHS with target goal 110-160mg/dL, CF 50, no carb ratio Pharmacy glycemic consult AM A1c (4) Esophageal dysphagia: Plan: Patient underwent endoscopy on 09/28 Keep n.p.o. (5) Panhypopituitarism: Plan: TSH low at 0.010 Random cortisol WNL 7.32 Continue levothyroxine, desmopressin, somatropin, hydrocortisone (6) Bipolar disorder: Plan: [place] level low <0.1 Continue lithium (7) Depression: Plan: Hold duloxetine; while risk of lowering the seizure threshold is low, risk of this medication outweighs benefit in the setting of recurrent seizures (8) BPH (benign prostatic hyperplasia): Plan: Continue dutasteride and alfuzosin (9) Mitral regurgitation: (10) Anxiety: Plan Disposition: Admit to PCU telemetry Keep n.p.o. DNR/DNI VTE PPx: SCDs, Lovenox 40 mg SQ q24h History of Present Illness Chief Complaint: Seizure Primary Care Provider: Larry Amaral MD Anders is a 53-year-old male with PMH of T2DM, bipolar disorder, syncope, MR, migraine, pseudoseizures, pituitary DI/hypogonadism/hypothyroidism, anxiety, depression, and BPH. Presented to the ED after being a code purple for an observed seizure in the PACU at 1138 following an endoscopy for dysphagia. He was given Versed 2 mg IM, and then Versed 2 mg IV, and seizure symptoms resolved. He experienced a second seizure at 1345. Patient was sent to the ED and had a third seizure while awaiting discharge from the ER; given 1 mg of IV Ativan and valproic acid 1000 mg. No at home O2 us. He reports that he took most of his morning meds, but not the ones he held for the endoscopy. Patient's fianc (Alana) is present at the bedside and provides additional history; she reports that he has had 2 additional seizures in the past 1.5 hours. She also reports that he usually has a seizure every 1-2 weeks, but not more than one in a single day. Vitals stable at time of admission. ED course: Lorazepam 1 mg IV, valproic acid 1000 mg, IVF, magnesium sulfate, hydrocortisone 100 mg IV, and lacosamide 100 mg ROS: (Difficult to obtain as patient is lethargic following medications given) Patient endorses photophobia, SOB, pleuritic CP, abdominal cramping, nausea, and urinary incontinence following seizure (per patient). Patient denies fever, chills, nightsweats, biting tongue, CP, abdominal pain, or vomiting. Patient is DNR/DNI and does not want a breathing tube under any circumstances. Allergies Allergy/AdvReac Type Severity Reaction Status Date / Time clindamycin Allergy Intermediate SWELLING Verified 09/28/23 17:12 Iodinated Contrast Media Allergy Intermediate face/eye Verified 09/28/23 17:12 swelling Quinolones Allergy Intermediate HIVES Verified 09/28/23 17:12 Home Medications Medication Instructions Recorded Confirmed Type cyclobenzaprine 10 mg tablet 10 mg PO BID PRN muscle spasm 30 09/18/20 09/28/23 Rx days #60 tabs acetaminophen 325 mg tablet 650 mg (2 x 325 mg) PO Q6H PRN 03/01/22 09/28/23 Rx pain #30 tabs lithium carbonate 300 mg tablet 300 mg PO AMHS 06/04/22 09/28/23 History trazodone 100 mg tablet 100 mg PO HS 06/04/22 09/28/23 History brexpiprazole 3 mg tablet (Rexulti) 3 mg PO QAM 06/23/22 09/28/23 History celecoxib 200 mg capsule 200 mg PO DAILY PRN Pain 06/23/22 09/28/23 History duloxetine 30 mg capsule,delayed 30 mg PO HS 06/23/22 09/28/23 History release mirtazapine 30 mg tablet (Remeron) 30 mg PO HS 06/23/22 09/28/23 History alfuzosin 10 mg tablet,extended 10 mg PO QAM #90 tabs 08/05/22 09/28/23 Rx release 24 hr blood sugar diagnostic (OneTouch 08/06/22 09/28/23 History Verio test strips) duloxetine 60 mg capsule,delayed 60 mg PO QAM 11/09/22 09/28/23 History release prazosin 5 mg capsule (Minipress) 5 mg PO HS 11/09/22 09/28/23 History oxybutynin chloride 5 mg tablet 5 mg PO Q8H PRN bladder spasms #20 12/06/22 09/28/23 Rx tabs docusate sodium 100 mg capsule 100 mg PO BID PRN Constipation 12/27/22 09/28/23 History (Colace) onabotulinumtoxinA 200 unit See Rx Instructions IM .COMPLEX #1 12/28/22 09/28/23 Rx solution for injection (Botox) ea ibuprofen 200 mg tablet (Advil) 400 mg PO Q6H PRN Pain 02/21/23 09/28/23 History fluticasone propionate 50 1 spray intranasal HS PRN allergy 03/16/23 09/28/23 Rx mcg/actuation nasal symptoms #16 grams spray,suspension (Flonase Allergy Relief) somatropin 5 mg/1.5 mL (3.3 mg/mL) 0.3 mg (0.09 mL) subcut PM #2 03/17/23 09/28/23 Rx subcutaneous pen injector syringes (Norditropin FlexPro) dutasteride 0.5 mg capsule 0.5 mg PO QAM #90 caps 04/04/23 09/28/23 Rx (Avodart) testosterone 2 pump topical PM #75 grams 04/08/23 09/28/23 Rx FreeStyle Rosalie 2 [place] (flash #1 ea 05/13/23 09/28/23 Rx glucose scanning reader) metformin 1,000 mg tablet 1,000 mg PO BID 05/23/23 09/28/23 History insulin glargine 100 unit/mL (3 12 unit subcut PM 06/04/23 09/28/23 History mL) subcutaneous pen (Lantus Solostar U-100 Insulin) lisinopril 5 mg tablet 5 mg PO QAM 06/04/23 09/28/23 History semaglutide (weight loss) 0.5 0.5 mg (0.5 mL) subcut Q7D #2 mL 06/17/23 09/28/23 Rx mg/0.5 mL subcutaneous pen injector (Sanjeevvy) FreeStyle Rosalie 2 Sensor (flash #6 ea 06/24/23 09/28/23 Rx glucose sensor) ferrous sulfate 325 mg (65 mg 325 mg PO Q OTHER DAY #45 tabs 08/03/23 09/28/23 Rx iron) tablet hydrocodone 10 mg-acetaminophen 1 tab PO Q6H PRN Pain 08/03/23 09/28/23 History 325 mg tablet cholecalciferol (vitamin D3) 50 50 mcg PO QPM #90 caps 08/29/23 09/28/23 Rx mcg (2,000 unit) capsule furosemide 20 mg tablet 20 mg PO QAM #30 tabs 08/29/23 09/28/23 Rx levothyroxine 200 mcg tablet 200 mcg PO QAM #30 tabs 08/29/23 09/28/23 Rx potassium chloride 20 mEq 20 meq PO QAM #90 tabs 08/30/23 09/28/23 Rx tablet,extended release hydrocortisone 10 mg tablet See Rx Instructions PO BID #135 08/31/23 09/28/23 Rx tabs desmopressin 0.1 mg tablet (DDAVP) 0.4 mg (4 x 0.1 mg) PO BID #240 09/02/23 09/28/23 Rx tabs albuterol sulfate 90 mcg/actuation 1 inh inhalation QID PRN Shortness 09/08/23 09/28/23 Rx aerosol inhaler Of Breath Or Wheezing #6.7 grams divalproex 500 mg tablet,delayed 1,000 mg (2 x 500 mg) PO BID 30 09/14/23 09/28/23 Rx release days #120 tabs lacosamide 150 mg tablet 150 mg PO BID #60 tabs 09/14/23 09/28/23 Rx propranolol 120 mg capsule,24 120 mg PO QPM #30 caps 09/14/23 09/28/23 Rx hr,extended release rimegepant 75 mg disintegrating 75 mg PO DAILY PRN Migraine 09/14/23 09/28/23 Rx tablet (Nurtec ODT) Headache #8 tabs somatropin 12 mg/mL (36 unit/mL) 0.3 mg (0.025 mL) subcut DAILY #2 09/16/23 09/28/23 Rx subcutaneous cartridge ea lorazepam 0.5 mg tablet 0.5 mg PO DAILY PRN Seizure 09/19/23 09/28/23 History Activity rosuvastatin 20 mg tablet 20 mg PO QAM 09/19/23 09/28/23 History pantoprazole 40 mg tablet,delayed 40 mg PO BID #60 tabs 09/28/23 09/28/23 Rx release Past Med/Surg History Medical History (Updated 09/28/23 @ 20:04 by Orlando Jones PA-C) BPH (benign prostatic hyperplasia) Diabetes Hyperactive gag reflex BRCA gene positive tested positive in Aug 2023 [place] > reason for up coming EGD Family history of BRCA gene mutation PTSD (post-traumatic stress disorder) Epidural lipomatosis Chronic left sacroiliac pain Hypernatremia Leukocytosis Benzodiazepine overdose none since Nov 2022 Presence of cardiac device Loop recorder > last checked fall 2022 Hx of fracture of foot Sep 2022- right > cast since removed > still gets painful Acute renal failure Fracture of fibula, right, closed Lumbar stenosis with neurogenic claudication Neck pain Cerebral concussion May 2023 during seizure > no further issues Syncope and collapse Reason for loop recorder No recent issues since bed bound from femur fracture in Sep 2022 per patient Orthostatic hypotension Mild CAD SCOTT (dyspnea on exertion) Pseudoseizures Sensorineural hearing loss of both ears Rectal bleeding on occasion History of COVID-19 10/2021 - fatigue; resolved. Mitral valve regurgitation follows with Dr. Phillips DM type 2 (diabetes mellitus, type 2) Vertigo BPH with obstruction/lower urinary tract symptoms Migraine without aura, not intractable, without status migrainosus Acute kidney injury September 2022 (s/p grand mal seizure) Nonocclusive coronary atherosclerosis of [place] coronary artery Panhypopituitarism Weight gain Lumbar radiculopathy HTN (hypertension) SOB (shortness of breath) on exertion Lower extremity edema Elevated LFTs Bilateral hand pain Left shoulder pain Lumbar spine pain Pituitary neoplasm Dx'ed in 2001- s/p surgical resection and XRT Repeat surgery in 2018 secondary to tumor regrowth at [facility] Kidney stones HX Prostate mass benign Bladder mass benign Depression Growth hormone deficiency Bipolar I disorder Migraine without aura and without status migrainosus, not intractable Insomnia Obstructive sleep apnea of adult cpap > non compliant per pt Pituitary diabetes insipidus Follows with endocrinology- on DDAVP Pituitary hypogonadism Follows with endocrinology- Pituitary hypothyroidism Follows with endocrinology- Secondary adrenal insufficiency Seizure disorder last seizure grand mal early Aug 2023 > follows with Dr. Ordonez and [facility] epilepsy clinic Tremor Surgical History S/P TURP (status post transurethral resection of prostate) History of lumbar fusion [facility] Jul 2022 History of cardiac cath 07/2021 - no stents S/P epidural steroid injection History of lithotripsy Status post right foot surgery replaced 5th metatarsal--hardware in place History of bladder surgery remove mass History of prostate surgery remove mass History of colonoscopy History of esophagogastroduodenoscopy (EGD) History of tooth extraction History of wisdom tooth extraction History of brain surgery x2---2004 @ [facility], 2018 @ [facility]--for brain tumors > caused epilepsy Family History Grandmother (Paternal) Family history of diabetes mellitus Aunt Family history of diabetes mellitus Uncle Family history of diabetes mellitus Father Prostate cancer Heart disease Mother Cardiac disorder Grandmother (Maternal) Myocardial infarction Other Asthma Cancer Hypertension No family history of adverse response to anesthesia No family history of bleeding disorder Stroke Denies family history of Ovarian cancer Breast cancer Colorectal cancer Social History Smoking Status: Unknown if ever smoked Tobacco Type: Smokeless Tobacco (Dip or Chew) Second Hand Exposure: No; Do You Dip or Chew Tobacco: Yes (advised npo status); Hx Alcohol Use: No Hx Substance Use: No Preferred Language: Welsh Communication Ability: Effective Communication Ability Comment: Unable to obtain due to patient condition. 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 Fitting Required: No Beliefs That Will Affect Care: None marital status: Single Current Living Situation: Significant Other current occupational status: unemployed Feels Safe at Home: Yes Childhood Exposure to Second-Hand Smoke: Yes (parents smoked) Seatbelt Use: always Assistive Devices: Glasses Review of Systems Review of Systems: See HPI above Physical Exam Physical Exam: General: no acute distress; lethargic; eyes closed; SPO2 87% on 2L NC; cooperative HEENT: normocephalic, atraumatic; no scleral icterus; moist mucus membrane; no lesions on tongue Neck: supple; no lymphadenopathy; trachea midline Skin: warm, dry without signs of tenting; no cyanosis; no rashes, bruising, lesions, or erythema noted CV: chest wall NTP; RRR; S1/S2 normal; no murmurs/rubs/gallops; pulses intact and symmetric at radial, DP, and PT Lungs: no acute respiratory distress; symmetrical chest wall expansion; clear breath sounds across all lung kong w/o adventitious sounds; no wheezing ABD: Soft, NTP; BS present; no rebound/guarding; no distention MSK: no tics or fasciculations; no edema noted in the LEs b/l Neuro: Lethargic; difficulty keeping eyes open, but responds to questioning with one-word sentences; not oriented to time/location; oriented to name/birthday Results & Data Results & Data Vital Signs (Past 12 Hours) Vital Signs Temp Pulse Resp BP Pulse Ox O2 Del Method O2 Flow Rate 09/28/23 17:45 76 21 151/85 H 100 Nasal Cannula 2 09/28/23 17:30 72 16 154/89 H 96 Nasal Cannula 2 09/28/23 17:16 71 18 132/100 96 Nasal Cannula 2 09/28/23 17:00 73 17 153/85 H 96 Nasal Cannula 2 09/28/23 16:45 68 18 139/73 95 Nasal Cannula 2 09/28/23 16:30 75 16 146/85 H 96 Nasal Cannula 09/28/23 16:16 73 17 134/94 96 Nasal Cannula 09/28/23 16:00 65 19 139/79 96 Nasal Cannula 09/28/23 15:45 72 18 123/79 96 Nasal Cannula 09/28/23 15:30 73 18 111/84 96 Nasal Cannula 09/28/23 15:15 74 15 120/79 98 Nasal Cannula 09/28/23 15:00 76 17 136/95 98 Nasal Cannula 09/28/23 14:38 84 09/28/23 14:34 97 Room Air 0 09/28/23 14:34 36.9 C 83 17 136/81 97 Room Air Supervising Physician Co-Signing Physician Notes Patient seen and examined, chart reviewed, case discussed with Tarik Obando I agree with the assessment and plan as above except as otherwise noted Labs and images reviewed 53-year-old male seen for EGD for dysphagia who subsequently developed seizure- like activity Observed seizure while in PACU. Code purple was called. IV had infiltrated and patient received 2 mg of Versed IM, once IV access was reestablished he was then given an additional 2 mg Versed IV and had cessation of seizure-like activity. Coherent but somnolent on reevaluation. Per anesthesia reevaluation patient had regular tremor-like activity in the feet bilaterally not consistent with typical seizure activity. Patient appears confused, and responded he did not know where he was but was not unconscious. Was recommended for transfer to the ER for further evaluation While preparing from discharge from the ER patient had a third seizure and was given 1 mg of IV Ativan with clinical improvement. Given 3 breakthrough seizures over several hours was given IV Depakote 1000 mg and recommended for admission. At bedside patient opens eyes, follows commands, and nods head appropriately to indicate yes no questions but otherwise gives minimal responses to questions. Miscellaneous Machine Operator strength intact bilaterally, ankle dorsiflexion/plantarflexion intact bilaterally at time bedside assessment. Patient's somnolent but awakens easily. Patient confirms DNR/DNI at bedside, to which his fiance reports this is consistent with what they have discussed and patient also indicates that for declining respiratory status he would not want intubation under any circumstances including to protect his airway temporarily. Case was reviewed by neurology as patient has known history of seizure versus PNES. Recommended giving a dose of Vimpat IV and continuing his home dosing including normal evening doses. Case signed out to evening resident who is aware to evaluate patient at bedside for concerns of seizure activity and patient risk of oversedation. Agree with assessment/management PG Care Time/CCT Total # of Minutes Spent Total Time Spent with Patient: Total time spent is greater than 50% in coordination of care (as documented) at patient's floor/unit and/or counseling patient: [place] [address] INT INP/OBS CARE 3/75MIN Patient Type Established History Comprehensive Exam Comprehensive Medical Decision Making High Complexity Diagnoses Recurrent seizures G40.909 Hypomagnesemia E83.42 Diabetes E11.9 Esophageal dysphagia R13.19 Panhypopituitarism E23.0 Bipolar disorder F31.9 Depression F32.9 BPH (benign prostatic hyperplasia) N40.0 Mitral regurgitation I34.0 Anxiety F41.9
--- NOTE | 2023-09-28 18:27 | CT Scan Report ---
CT head/brain wo con CLINICAL HISTORY: 53 years-old Male with Recurrent seizures, ho neoplas resec, panhypopit. Acute sei zure like activity TECHNIQUE: Multiple axial CT images of the head were obtained without contrast. A dose lowering tech nique was utilized adhering to the principles of ALARA. CT DOSE: 547.75 mGy.cm COMPARISON: 06/04/2023. FINDINGS: No acute intracranial hemorrhage, midline shift, intracranial mass, hydrocephalus, territorial ischem ia or abnormal extra-axial collection. Garrett-cisterna magna redemonstrated. The calvarium is intact. The paranasal sinuses, mastoid air cells, and middle ear cavities are clear . IMPRESSION: No acute intracranial abnormality. ACT 112: Negative or not required by law. The above report was generated using voice recognition software. It may contain grammatical, syntax o r spelling errors. Electronically signed by: Bean Tolentino M.D. 09/28/2023 6:25 PM
[2023-09-28 18:36] LABS: Thyroid Stimulating Hormone 0.01 uIu/ml (0.300-4.500)
[2023-09-28 18:42] LABS: T4 Free Thyroxine 1.47 ng/dl (0.61-1.60)
[2023-09-28 19:18] LABS: Appearance Urine Clear (Clear); Bacteria Urine Automated Negative (Negative); Bilirubin Urine Negative (Negative); Blood Urine Negative (Negative); Color Urine Yellow; Epithelial Cell Urine Auto 20-30 /lpf (0-5); Glucose Urine UA Negative (Negative); Ketones Urine Trace (Negative); Leukocyte Esterase Urine Negative (Negative); Nitrite Urine Negative (Negative); Protein Urine Trace (Negative); RBC Urine Automated 0-4 /hpf (0-4); Specific Gravity Urine 1.022 (1.000-1.030); Urobilinogen Urine Negative (Negative)
[2023-09-28] MEDS ORDERED: CARBOHYDRATES FOR HYPOGLYCEMIA PO PRN (22:07)
[2023-09-28] MEDS ORDERED: LORazepam 2 MG in SYRINGE 1 ML IV PRN (22:07)
[2023-09-28] MEDS ORDERED: oxyBUTYnin chloride 5 MG TAB PO PRN (22:07)
[2023-09-28] MEDS ORDERED: ACETAMINOPHEN 325 MG TAB PO PRN (22:07)
[2023-09-28] MEDS ORDERED: GLUCOSE 10 TAB/TUBE PO PRN (22:07)
[2023-09-28] MEDS ORDERED: PHARMACY GLYCEMIC MGMT CONSULT PRN (22:07)
[2023-09-28] MEDS ORDERED: DOCUSATE SODIUM 100 MG CAP PO PRN (22:07)
[2023-09-28] MEDS ORDERED: GLUCOSE 40% GEL 15 GM TUBE PO PRN (22:07)
[2023-09-28] MEDS ORDERED: CYCLOBENZAPRINE HCL 10 MG TAB PO PRN (22:07)
[2023-09-28] MEDS ORDERED: ALBUTEROL HFA 8 GM INHALER INH PRN (22:07)
[2023-09-28] MEDS ORDERED: GLUCAGON FOR INJ 1 MG VIAL SQ PRN (22:07)
[2023-09-28] MEDS ORDERED: DEXTROSE 50% 50 ML SYRINGE IV PRN (22:07)
[2023-09-28] MEDS: DESMOPRESSIN ACETATE 0.1 MG TAB PO SCH (23:07)
[2023-09-28] MEDS: LACOSAMIDE 50 MG TABLET PO SCH (23:07)
[2023-09-28] MEDS: PANTOprazole 40 MG TAB PO SCH (23:08)
[2023-09-28] MEDS: PRAZOSIN HCL 1 MG CAP PO SCH (23:08)
[2023-09-28] MEDS: DIVALPROEX DELAY RELEASE 500 MG TAB PO SCH (23:09)
[2023-09-28] MEDS: LITHIUM CARBONATE 300 MG TAB PO SCH (23:09)
[2023-09-28] MEDS: ENOXAPARIN INJ 40 MG/0.4 ML SYR SQ SCH (23:10)
[2023-09-28] MEDS: MIRTAZAPINE TAB 15 MG TAB PO SCH (23:10)
[2023-09-28] MEDS: PROPRANOLOL HCL 60 MG LA CAP PO SCH (23:11)
[2023-09-29] MEDS: INSULIN ASPART PER UNIT CHARGE SC SCH ×5 (02:47→21:12)
[2023-09-29] MEDS: LEVOTHYROXINE SODIUM 200 MCG TABLET PO SCH ×2 (05:38→05:42)
[2023-09-29 07:21] LABS: Basophils # (auto) 0.04 K/uL (0.00-0.20); Basophils % (auto) 0.4 %; Eosinophils # (auto) 0.01 K/uL (0.00-0.50); Eosinophils % (auto) 0.1 %; Hematocrit (blood only) 40.6 % (42.0-52.0); Hemoglobin 14.1 g/dl (14.0-18.0); Immature Granulocytes % (auto) 1.8 %; Lymphocytes % (auto) 19.3 %; Mean Corpuscular Hemoglobin 30.7 pg (25.0-34.0); Mean Corpuscular Hgb Conc 34.7 g/dL (32.0-36.0); Mean Corpuscular Volume 88.3 fL (80.0-100.0); Mean Platelet Volume 8.5 fL (9.4-12.4); Monocytes # (auto) 0.52 K/uL (0.11-0.59); Monocytes % (auto) 4.6 %; Neutrophils # (auto) 8.43 K/uL (1.40-6.50); Neutrophils % (auto) 73.8 %; Platelet Count 155 K/uL (130-400); RDW Coefficient of Variation 13.4 % (11.5-14.5); RDW Standard Deviation 43.6 fL (36.4-46.3)
--- NOTE | 2023-09-29 07:46 | Hospitalist Progress Note ---
Date of Service September 29, 2023 Assessment & Plan (1) Recurrent seizures: (2) Esophageal dysphagia: (3) BPH (benign prostatic hyperplasia): (4) Hypomagnesemia: (5) Diabetes: (6) Anxiety: (7) Mitral regurgitation: (8) Panhypopituitarism: (9) Bipolar disorder: (10) Depression: Plan Pt is a 53 yo male with a past medical history of T2DM, bipolar disorder, syncope, MR, migraine, pseudoseizures, pituitary DI/hypogonadism/hypothyroidism, anxiety, depression, and BPH who presents to the hospital on 09/28 for seizure after endoscopy. 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 active seizures; q5min x 2 max doses - pt had another seizure this morning, was alert and oriented immediately after, EEG showed no slowing postictal so likely suggests pt having pseudoseizures - neurology consulted; likely pt having repeat pseudoseizures - will restart pt's duloxetine and explained to him that the pseudoseizures/PNES are likely due to increased stress due to recent procedure and being in the hospital, - will start diet today and monitor overnight, likely to be discharged tomorrow, pt voiced understanding of his condition and agreeable to plan Note: CAUTION respiratory depression with continued benzodiazepine use; patient is DNR/DNI and wants no breathing tube under any circumstances Hypomagnesemia, resolved - Mag 1.4 on arrival, repleted, today was wnl - will monitor daily Diabetes - A1c 5.6 09/29/23 - Monitor for hypoglycemia - Loose SSI; BSG ACHS with target goal 110-160mg/dL, CF 50, no carb ratio Esophageal dysphagia - Patient underwent endoscopy on 09/28 Panhypopituitarism - TSH low at 0.010 - Random cortisol WNL 7.32 - Continue levothyroxine, desmopressin, somatropin, hydrocortisone Bipolar disorder - [place] level low <0.1 - Continue lithium Depression - Hold duloxetine; while risk of lowering the seizure threshold is low, risk of this medication outweighs benefit in the setting of recurrent seizures BPH (benign prostatic hyperplasia) - Continue dutasteride and alfuzosin Mitral regurgitation Anxiety DNR/DNI VTE PPx: SCDs, Lovenox 40 mg SQ q24h Admission and Anticipated Discharge Date Admission Date: September 28, 2023 Supervising Physician Co-Signing Physician Notes I personally examined the patient and verified all [place]oco points of history and exam, discussed case, and agree with decision making with Dr Shannon feels okay. Somewhat sleepy. No acute complaints. Vitals noted, in general he is awake and alert but does fall asleep easily appears no distress. HEENT normocephalic atraumatic mucous membranes moist. Breathing unlabored no accessory muscle use good effort. Skin shows no rashes no pallor or icterus. Seizure-like activitystrongly suspect PNESexplained the diagnosis to patient, he expressed some degree of understanding. Home once he feels more safe, appreciate neurology input. Otherwise as above. Subjective Pt is a 53 yo male with a past medical history of T2DM, bipolar disorder, syncope, MR, migraine, pseudoseizures, pituitary DI/hypogonadism/hypothyroidism, anxiety, depression, and BPH who presents to the hospital on 09/28 for seizure after endoscopy. Today, when pt was seen this morning he states he was tired and hungry but that otherwise he felt okay and better than yesterday. When seen in the later morning after he experienced a suspected pseudoseizure, he was more drowsy and said that he just didn't feel very well. Pt notes that he has pseudoseizures maybe once a week or once a month at home. Review of Systems Review of Systems: Constitutional: denies fever, chills, Cardio: denies chest pain, palpitations Resp: denies shortness of breath, Physical Exam Physical Exam: General:Fatigued but oriented, no acute distress, HEENT: Normocephalic, moist oral mucosa, Cardio: Regular rate and rhythm, no murmur, Resp:Lungs clear to auscultation b/l, no wheezes or rhonchi, GI: Soft and nontender, bowel sounds active Skin: Warm, pink, dry, Psych: Mood-affect congruence. Results & Data Results & Data Vital Signs (Past 12 Hours) Vital Signs Temp Pulse Resp BP BP Pulse Ox O2 Del Method 09/29/23 02:56 36.3 C L 16 130/66 96 Nasal Cannula 09/29/23 02:47 Nasal Cannula 09/29/23 02:39 86 09/28/23 22:45 66 14 151/97 H 95 09/28/23 22:30 73 16 131/89 96 09/28/23 22:00 69 19 119/80 92 09/28/23 21:45 69 19 141/90 H 91 09/28/23 21:30 66 18 151/93 H 92 09/28/23 21:15 71 17 137/81 96 09/28/23 21:00 70 17 142/87 H 94 09/28/23 20:45 70 15 142/90 H 93 09/28/23 20:30 69 16 93 09/28/23 20:15 68 18 129/88 93 09/28/23 20:01 69 19 96 09/28/23 20:00 69 18 119/84 92 09/28/23 19:45 70 17 136/93 94 O2 Flow Rate 09/29/23 02:56 3 09/29/23 02:47 3 09/29/23 02:39 09/28/23 22:45 09/28/23 22:30 09/28/23 22:00 09/28/23 21:45 09/28/23 21:30 09/28/23 21:15 09/28/23 21:00 09/28/23 20:45 09/28/23 20:30 09/28/23 20:15 09/28/23 20:01 09/28/23 20:00 09/28/23 19:45 Resident Activity Tracking Resident Involvement: Resident Care Provided Care Provided: Adult Hospital Medicine
[2023-09-29 07:47] LABS: BUN Creatinine Ratio 16.5 (10-20); Calcium 8.5 mg/dl (8.6-10.3); Creatinine Clr Calc Pharmacy 113.4 ml/min; Est GFR (African American) 101.4 ml/min; Est GFR (Non-African American) 87.5 ml/min; Magnesium 2.2 mg/dl (1.7-2.4); Potassium 4.3 mmol/L (3.5-5.1)
[2023-09-29] MEDS: HYDROCORTISONE 10 MG TAB PO SCH (08:48)
[2023-09-29] MEDS: FUROSEMIDE 20 MG TAB PO SCH (08:48)
[2023-09-29] MEDS: TAMSULOSIN HCL 0.4 MG CAP PO SCH (08:48)
[2023-09-29] MEDS: FINASTERIDE 5 MG TAB PO SCH (08:48)
[2023-09-29] MEDS: POTASSIUM CHLORIDE CRTAB 20 MEQ TABCR PO SCH (08:49)
[2023-09-29] MEDS: lisinopril 5 MG TAB PO SCH (08:49)
[2023-09-29] MEDS: ROSUVASTATIN CALCIUM 20 MG TAB PO SCH (08:49)
[2023-09-29] MEDS: PANTOprazole 40 MG TAB PO SCH ×2 (09:10→20:06)
[2023-09-29] MEDS: DIVALPROEX DELAY RELEASE 500 MG TAB PO SCH ×2 (09:10→20:06)
[2023-09-29 09:22] LABS: Estimated Average Glucose 114 mg/dl; Hemoglobin A1C 5.6 % (4.5-5.6)
[2023-09-29] MEDS: LITHIUM CARBONATE 300 MG TAB PO SCH ×2 (09:36→20:08)
[2023-09-29] MEDS: DESMOPRESSIN ACETATE 0.1 MG TAB PO SCH ×2 (09:36→20:06)
[2023-09-29] MEDS: LACOSAMIDE 50 MG TABLET PO SCH ×2 (09:36→21:11)
--- NOTE | 2023-09-29 09:36 | Neurology Consultation ---
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 He is having multiple spells since an endoscopy procedure yesterday. I came up to him a minute or 2 after a generalized spell witnessed by a nurse and he was lucid, answering questions and following commands well with no focal abnormalities or meningeal signs. I suspect a pseudo-seizure. He may have had pseudoseizures yesterday and he does have significant psychiatric issues on multiple psychiatric medications. He is tried and failed a number of medications for seizures over time as well. He has a history of migraine headaches which are stable on Botox. He has a mild idiopathic polyneuropathy which is stable. There is a history of essential tremor likely due to Depakote. It was not prominent this morning. Patient is post pituitary tumor removal with panhypopituitarism followed by endocrinology. His last MRI was in February of 2022 and showed no recurrence Recommendations: 1. EEG is being performed currently 2. Consider MRI of the brain with and without contrast (with attention to pituitary gland). 3. Continue valproic acid 1000 mg twice daily (p.o. or IV if unable to take p.o.) 4. Continue lacosamide 150 mg twice daily (p.o. or IV if unable to take p.o.). Depending on his clinical course I may increase this to 200 mg twice a day. 5. Increase activity as able Overall, I spent a total of 90 minutes with this case including review of records, review of old MRI films, direct evaluation the patient at bedside, report generation, and discussing the case with the patient and RN at bedside and Dr. Shannon including differential diagnosis and treatment options. History of Present Illness Reason for Consultation: Patient is a 53-year-old, who I was asked to see the request of Orlando Jones PA-C, for neurologic consultation regarding seizures Requesting Physician: Orlando Jones PA-C Attending Physician: James Esqueda DO History of Present Illness I have been following this patient for over a decade for seizure disorder and migraines, post intracranial surgery for a very large pituitary tumor in 2001. He had panhypopituitarism postoperatively and has been on multiple hormone replacements, followed closely by endocrinology. He had a repeat surgery in the fall of 2015 to remove tumor regrowth. He has been stable since with no evidence of recurrence. His most recent MRI of the brain was in February of 2022 and showed no tumor recurrence. The patient has a history of bipolar disorder/ depression / anxiety since his original surgery, followed by Psychiatry over time. He has been on a number of different psychiatric medicines. Currently, he is on lithium 300 mg a day, Cymbalta 90 mg a day, and mirtazapine 30 mg in the evening. He also takes trazodone 100 mg in the evening for sleep. Patient has a history seizures and migraines since 2001. He has tried phenytoin, oxcarbazepine, lamotrigine, levetiracetam, all with side effects. He has been on valproic acid for almost a decade. I have seen him as an outpatient , periodically ever since. For several years he has been on Depakote ER 1000 mg in the morning and 1500 mg at night. He would typically have a breakthrough seizure once every so many months. These tended to consist of generalized shaking incontinence lasting a minute. he was doing fairly well however. He did developed tremor likely secondary to the valproic acid (propranolol helped). The patient started having more seizures in early 2020. he went to [facility], was weaned off Depakote and Briviact and they diagnosed pseudoseizures after capturing spells on epilepsy monitoring. When I saw him in April of 2021 he was being followed by Psychiatry (who labeled him as bipolar ). He remained on Depakote and propranolol (mostly for headaches ). He was taking Nurtec and Zomig as needed for headaches. He has intermittent seizures probably once every 3-4 weeks and currently is on Depakote ER 1000 mg twice a day and lacosamide 150 mg twice a day. Patient was having migraine headaches (Despite Depakote and propranolol), and in 2018 was initiated on Emgality. This has subsequently been discontinued. More recently he has been on Botox every 3 months, which does help some. His headaches are stable. In early January of 2022 EMG nerve conduction study showed mild underlying polyneuropathy with right lumbosacral radiculopathy of a mild nature. The patient was last seen in our clinic on September 14. He was stable with his seizures, headaches, and tremor. The patient had endoscopy on September 28. In the recovery room he had a generalized seizure event around 1130. He was taken to the ER and had another event around 1345. In the emergency room he had 3 additional seizures that afternoon. Was given an extra 1000 mg of valproic acid and an extra 100 mg of lacosamide. He was also given 2 mg of Versed and 1 or 2 mg of Ativan. CBC and Chem profile were unremarkable. Magnesium was low but it was 2.2 this morning. Valproic acid level was 93 and lithium level was less than 0.1. CT scan of the head was unremarkable. This morning he was doing well when around 0902 nursing reported a generalized stiffening of both upper extremities with some shaking. He was not responsive and he was grinding his teeth very loudly. His legs were not overly stiff or shaking according to the nurse. The event lasted anywhere from 1-1-1/2 minutes and then within a minute he was talking and following commands. I was in the room probably no more than 2 minutes after the event and the patient would follow commands, speak and answer questions correctly and did not seem to be overly confused. Blood pressure was 110/62 and pulse 103 just after the event. Allergies Allergy/AdvReac Type Severity Reaction Status Date / Time clindamycin Allergy Intermediate SWELLING Verified 09/28/23 17:12 Iodinated Contrast Media Allergy Intermediate face/eye Verified 09/28/23 17:12 swelling Quinolones Allergy Intermediate HIVES Verified 09/28/23 17:12 Home Medications Medication Instructions Recorded Confirmed Type cyclobenzaprine 10 mg tablet 10 mg PO BID PRN muscle spasm 30 09/18/20 09/28/23 Rx days #60 tabs acetaminophen 325 mg tablet 650 mg (2 x 325 mg) PO Q6H PRN 03/01/22 09/28/23 Rx pain #30 tabs lithium carbonate 300 mg tablet 300 mg PO AMHS 06/04/22 09/28/23 History trazodone 100 mg tablet 100 mg PO HS 06/04/22 09/28/23 History brexpiprazole 3 mg tablet (Rexulti) 3 mg PO QAM 08/03/22 11/08/23 History celecoxib 200 mg capsule 200 mg PO DAILY PRN Pain 06/23/22 09/28/23 History duloxetine 30 mg capsule,delayed 30 mg PO HS 06/23/22 09/28/23 History release mirtazapine 30 mg tablet (Remeron) 30 mg PO HS 06/23/22 09/28/23 History alfuzosin 10 mg tablet,extended 10 mg PO QAM #90 tabs 08/05/22 09/28/23 Rx release 24 hr blood sugar diagnostic (OneTouch 08/06/22 09/28/23 History Verio test strips) duloxetine 60 mg capsule,delayed 60 mg PO QAM 11/09/22 09/28/23 History release prazosin 5 mg capsule (Minipress) 5 mg PO HS 11/09/22 09/28/23 History oxybutynin chloride 5 mg tablet 5 mg PO Q8H PRN bladder spasms #20 12/06/2207/13 Rx tabs docusate sodium 100 mg capsule 100 mg PO BID PRN Constipation 12/27/22 09/28/23 History (Colace) onabotulinumtoxinA 200 unit See Rx Instructions IM .COMPLEX #1 12/28/22 09/28/23 Rx solution for injection (Botox) ea ibuprofen 200 mg tablet (Advil) 400 mg PO Q6H PRN Pain 02/21/23 09/28/23 History fluticasone propionate 50 1 spray intranasal HS PRN allergy 03/16/23 09/28/23 Rx mcg/actuation nasal symptoms #16 grams spray,suspension (Flonase Allergy Relief) somatropin 5 mg/1.5 mL (3.3 mg/mL) 0.3 mg (0.09 mL) subcut PM #2 03/17/23 09/28/23 Rx subcutaneous pen injector syringes (Norditropin FlexPro) dutasteride 0.5 mg capsule 0.5 mg PO QAM #90 caps 04/04/23 09/28/23 Rx (Avodart) testosterone 2 pump topical PM #75 grams 04/08/23 09/28/23 Rx FreeStyle Rosalie 2 [place] (flash #1 ea 05/13/23 09/28/23 Rx glucose scanning reader) metformin 1,000 mg tablet 1,000 mg PO BID 05/23/23 09/28/23 History insulin glargine 100 unit/mL (3 12 unit subcut PM 06/04/23 09/28/23 History mL) subcutaneous pen (Lantus Solostar U-100 Insulin) lisinopril 5 mg tablet 5 mg PO QAM 06/04/23 09/28/23 History semaglutide (weight loss) 0.5 0.5 mg (0.5 mL) subcut Q7D #2 mL 06/17/23 09/28/23 Rx mg/0.5 mL subcutaneous pen injector (Wegovy) FreeStyle Rosalie 2 Sensor (flash #6 ea 06/24/23 09/28/23 Rx glucose sensor) ferrous sulfate 325 mg (65 mg 325 mg PO Q OTHER DAY #45 tabs 08/03/23 09/28/23 Rx iron) tablet hydrocodone 10 mg-acetaminophen 1 tab PO Q6H PRN Pain 08/03/23 09/28/23 History 325 mg tablet cholecalciferol (vitamin D3) 50 50 mcg PO QPM #90 caps 08/29/23 09/28/23 Rx mcg (2,000 unit) capsule furosemide 20 mg tablet 20 mg PO QAM #30 tabs 08/29/23 09/28/23 Rx levothyroxine 200 mcg tablet 200 mcg PO QAM #30 tabs 08/29/23 09/28/23 Rx potassium chloride 20 mEq 20 meq PO QAM #90 tabs 08/30/23 09/28/23 Rx tablet,extended release hydrocortisone 10 mg tablet See Rx Instructions PO BID #135 08/31/23 09/28/23 Rx tabs desmopressin 0.1 mg tablet (DDAVP) 0.4 mg (4 x 0.1 mg) PO BID #240 09/02/23 09/28/23 Rx tabs albuterol sulfate 90 mcg/actuation 1 inh inhalation QID PRN Shortness 09/08/23 09/28/23 Rx aerosol inhaler Of Breath Or Wheezing #6.7 grams divalproex 500 mg tablet,delayed 1,000 mg (2 x 500 mg) PO BID 30 09/14/23 09/28/23 Rx release days #120 tabs lacosamide 150 mg tablet 150 mg PO BID #60 tabs 09/14/23 09/28/23 Rx propranolol 120 mg capsule,24 120 mg PO QPM #30 caps 09/14/23 09/28/23 Rx hr,extended release rimegepant 75 mg disintegrating 75 mg PO DAILY PRN Migraine 09/14/23 09/28/23 Rx tablet (Nurtec ODT) Headache #8 tabs somatropin 12 mg/mL (36 unit/mL) 0.3 mg (0.025 mL) subcut DAILY #2 09/16/23 09/28/23 Rx subcutaneous cartridge ea lorazepam 0.5 mg tablet 0.5 mg PO DAILY PRN Seizure 09/19/23 09/28/23 History Activity rosuvastatin 20 mg tablet 20 mg PO QAM 09/19/23 09/28/23 History pantoprazole 40 mg tablet,delayed 40 mg PO BID #60 tabs 09/28/23 09/28/23 Rx release Patient History Medical History BPH (benign prostatic hyperplasia) Diabetes Hyperactive gag reflex BRCA gene positive tested positive in Aug 2023 [place] > reason for up coming EGD Family history of BRCA gene mutation PTSD (post-traumatic stress disorder) Epidural lipomatosis Chronic left sacroiliac pain Hypernatremia Leukocytosis Benzodiazepine overdose none since Nov 2022 Presence of cardiac device Loop recorder > last checked fall 2022 Hx of fracture of foot Sep 2022- right > cast since removed > still gets painful Acute renal failure Fracture of fibula, right, closed Lumbar stenosis with neurogenic claudication Neck pain Cerebral concussion May 2023 during seizure > no further issues Syncope and collapse Reason for loop recorder No recent issues since bed bound from femur fracture in Sep 2022 per patient Orthostatic hypotension Mild CAD SCOTT (dyspnea on exertion) Pseudoseizures Sensorineural hearing loss of both ears Rectal bleeding on occasion History of COVID-19 10/2021 - fatigue; resolved. Mitral valve regurgitation follows with Dr. Phillips DM type 2 (diabetes mellitus, type 2) Vertigo BPH with obstruction/lower urinary tract symptoms Migraine without aura, not intractable, without status migrainosus Acute kidney injury September 2022 (s/p grand mal seizure) Nonocclusive coronary atherosclerosis of [place] coronary artery Panhypopituitarism Weight gain Lumbar radiculopathy HTN (hypertension) SOB (shortness of breath) on exertion Lower extremity edema Elevated LFTs Bilateral hand pain Left shoulder pain Lumbar spine pain Pituitary neoplasm Dx'ed in 2001- s/p surgical resection and XRT Repeat surgery in 2018 secondary to tumor regrowth at [facility] Kidney stones HX Prostate mass benign Bladder mass benign Depression Growth hormone deficiency Bipolar I disorder Migraine without aura and without status migrainosus, not intractable Insomnia Obstructive sleep apnea of adult cpap > non compliant per pt Pituitary diabetes insipidus Follows with endocrinology- on DDAVP Pituitary hypogonadism Follows with endocrinology- Pituitary hypothyroidism Follows with endocrinology- Secondary adrenal insufficiency Seizure disorder last seizure grand mal early Aug 2023 > follows with Dr. Ordonez and [facility] epilepsy clinic Tremor Surgical History S/P TURP (status post transurethral resection of prostate) History of lumbar fusion [facility] Jul 2022 History of cardiac cath 07/2021 - no stents S/P epidural steroid injection History of lithotripsy Status post right foot surgery replaced 5th metatarsal--hardware in place History of bladder surgery remove mass History of prostate surgery remove mass History of colonoscopy History of esophagogastroduodenoscopy (EGD) History of tooth extraction History of wisdom tooth extraction [place] of brain [place] [facility] [place] [facility]--for brain tumors > caused epilepsy Family History Grandmother (Paternal) Family history of diabetes mellitus Aunt Family history of diabetes mellitus Uncle Family history of diabetes mellitus Father Prostate cancer Heart disease Mother Cardiac disorder Grandmother (Maternal) Myocardial infarction Other Asthma Cancer Hypertension No family history of adverse response to anesthesia No family history of bleeding disorder Stroke Denies family history of Ovarian cancer Breast cancer Colorectal cancer Social History Smoking Status: Never smoker Tobacco Type: Smokeless Tobacco (Dip or Chew) Second Hand Exposure: No; Do You Dip or Chew Tobacco: No; Hx Alcohol Use: No Hx Substance Use: No Preferred Language: [place] Islander Communication Ability: Effective Communication Ability Comment: Unable to obtain due to patient condition. Visual Impairment: No Limitations Hearing Ability: Normal Consumer Loan Specialist Required: No Beliefs That Will Affect Care: None marital status: Single Current Living Situation: Significant Other current occupational status: unemployed Other Information That Helps Us Care for You: No Feels Safe at Home: Yes Safety Concerns: Feels Safe At This Time Childhood Exposure to Second-Hand Smoke: Yes (parents smoked) Seatbelt Use: always Assistive Devices: None Review of Systems Constitutional: + fatigue and + weakness; no fever Eyes: no diplopia, no eye pain and no worsening vision Ear, Nose, Mouth, Throat: no ear pain, no tinnitus, no hearing loss, no dizziness, no snoring, no hoarseness and no dysphagia Respiratory: no cough and no dyspnea Cardiovascular: no chest pain, no palpitations and no lightheadedness Gastrointestinal: no abdominal pain, no nausea and no vomiting Musculoskeletal: + back pain; no neck pain, no radicular pain, no joint pain and no myalgia Integumentary: no rash and no lesions Neurologic: + tremor(s); no gait abnormality, no loc alized weakness, no generalized weakness, no tingling, no numbness, no abnormal movements, no headache(s), no abnormal speech, no confusion and no memory loss Psychiatric: no depression, no irritability, no anxiety, no difficulty concentrating, no confusion and no hallucinations Endocrine: no fatigue and no flushing Hematologic / Lymphatic: no easy bleeding and no easy bruising Allergy / Immunological: no urticaria and no problem reported Exam (Neuro) Physical Exam: The patient is right-handed. The patient is lying still with his hands folded over his chest and his eyes closed. With voice he will open his eyes and answer questions and follow one- step commands. Speech is normal without any aphasia or dysarthria. Mood is normal affect is appropriate and he can remember facts. Pupils are 5 mm bilaterally and reactive to light. Extraocular eye muscles are intact without nystagmus. Visual acuity and visual kong seem normal grossly to confrontation. There are no deficits to sensation in the face in all 3 distributions of the fifth cranial nerve bilaterally. Corneal reflexes are positive bilaterally. Facial strength and symmetry was normal bilaterally. Hearing seems normal bilaterally. Palate moves well without asymmetry. There is normal sternocleidomastoid and trapezius (shoulder shrug) strength bilaterally. Tongue is midline with good strength bilaterally. Neck has a full range of motion without discomfort. There are no cervical bruits bilaterally. There are no cranial or ocular bruits. Heart is without murmur. There is a regular rhythm and rate. Gait was not tested but stance sitting is reasonable With outstretched arms there is no drift. There are no resting, postural, or action tremors. There is no ataxia with finger to nose testing. There is good facility in the hands. No other abnormal involuntary movements are noted. Motor strength is 5/5 diffusely in the arms bilaterally including deltoids, eda ps, triceps, brachioradialis, wrist flexors and extensors, petroleum inspector supervisor, and intrinsic hand muscles. Motor strength is 5/5 diffusely in the legs bilaterally including hip flexors, quadriceps, hamstrings, gastrocnemius, tibialis anterior, tibialis posterior, and Peroneii muscles. Toe extensors are normal and there is good bulk in the extensor digitorum brevis muscles bilaterally. The limbs have good tone without rigidity or spasticity. There is no atrophy noted in the muscles. Muscle bulk is normal, there is no tenderness to palpation, no myotonia to percussion, and no fasciculations seen. Sensory examination is intact to touch and pin throughout all 4 limbs diffusely. Reflexes are 1/4 in the biceps, triceps, brachioradialis, quadriceps, and Achilles tendons bilaterally. There is no clonus bilaterally. Toes are downgoing with plantar stimulation bilaterally. Peripheral pulses are present and of normal quality distally in all 4 limbs. There is no peripheral edema noted in the limbs. Results & Data Vital Signs (Past 12 Hours) Vital Signs Temp Pulse Resp BP BP Pulse Ox O2 Del Method 09/29/23 07:00 77 09/29/23 07:00 36.8 C 09/29/23 02:56 36.3 C L 16 130/66 96 Nasal Cannula 09/29/23 02:47 Nasal Cannula 09/29/23 02:39 86 09/28/23 22:45 66 14 151/97 H 95 09/28/23 22:30 73 16 131/89 96 09/28/23 22:00 69 19 119/80 92 09/28/23 21:45 69 19 141/90 H 91 09/28/23 21:30 66 18 151/93 H 92 O2 Flow Rate 09/29/23 07:00 09/29/23 07:00 09/29/23 02:56 3 09/29/23 02:47 3 09/29/23 02:39 09/28/23 22:45 09/28/23 22:30 09/28/23 22:00 09/28/23 21:45 09/28/23 21:30 PG Care Time/CCT Total # of Minutes Spent Total Time Spent with Patient: Total time spent is greater than 50% in coordination of care (as documented) at patient's floor/unit and/or counseling patient: Coding Level of Care Code 13817 INT INP/OBS CARE 3/75MIN Diagnoses Recurrent seizures G40.909 Panhypopituitarism E23.0 Chronic migraine without aura or status migrainosus G43.709 Essential tremor G25.0 Idiopathic polyneuropathy G60.9 Time Spent (min) 90
--- NOTE | 2023-09-29 10:04 | Electroencephalogram ---
EEG Procedure Note Date of Service September 29, 2023 Start / End Times Start Time: 931 End Time: [address] Shannon History 53-year-old with history of generalized seizure disorder and pseudoseizures with multiple seizure events, including a generalized event that was 5-10 minutes prior to the initiation of this EEG Home Medication List Medication Instructions Recorded Confirmed Type cyclobenzaprine 10 mg tablet 10 mg PO BID PRN muscle spasm 30 09/18/20 09/28/23 Rx days #60 tabs acetaminophen 325 mg tablet 650 mg (2 x 325 mg) PO Q6H PRN 03/01/22 09/28/23 Rx pain #30 tabs lithium carbonate 300 mg tablet 300 mg PO AMHS 06/04/22 09/28/23 History trazodone 100 mg tablet 100 mg PO HS 06/04/22 09/28/23 History brexpiprazole 3 mg tablet (Rexulti) 3 mg PO QAM 06/23/22 09/28/23 History celecoxib 200 mg capsule 200 mg PO DAILY PRN Pain 06/23/22 09/28/23 History duloxetine 30 mg capsule,delayed 30 mg PO HS 06/23/22 09/28/23 History release mirtazapine 30 mg tablet (Remeron) 30 mg PO HS 06/23/22 09/28/23 History alfuzosin 10 mg tablet,extended 10 mg PO QAM #90 tabs 08/05/22 09/28/23 Rx release 24 hr blood sugar diagnostic (OneTouch 08/06/22 09/28/23 History Verio test strips) duloxetine 60 mg capsule,delayed 60 mg PO QAM 11/09/22 09/28/23 History release prazosin 5 mg capsule (Minipress) 5 mg PO HS 11/09/22 09/28/23 History oxybutynin chloride 5 mg tablet 5 mg PO Q8H PRN bladder spasms #20 12/06/22 09/28/23 Rx tabs docusate sodium 100 mg capsule 100 mg PO BID PRN Constipation 12/27/22 09/28/23 History (Colace) onabotulinumtoxinA 200 unit See Rx Instructions IM .COMPLEX #1 12/28/22 09/28/23 Rx solution for injection (Botox) ea ibuprofen 200 mg tablet (Advil) 400 mg PO Q6H PRN Pain 02/21/23 09/28/23 History fluticasone propionate 50 1 spray intranasal HS PRN allergy 03/16/23 09/28/23 Rx mcg/actuation nasal symptoms #16 grams spray,suspension (Flonase Allergy Relief) somatropin 5 mg/1.5 mL (3.3 mg/mL) 0.3 mg (0.09 mL) subcut PM #2 03/17/23 09/28/23 Rx subcutaneous pen injector syringes (Norditropin FlexPro) dutasteride 0.5 mg capsule 0.5 mg PO QAM #90 caps 04/04/23 09/28/23 Rx (Avodart) testosterone 2 pump topical PM #75 grams 04/08/23 09/28/23 Rx FreeStyle Rosalie 2 [place] (flash #1 ea 05/13/23 09/28/23 Rx glucose scanning reader) metformin 1,000 mg tablet 1,000 mg PO BID 05/23/23 09/28/23 History insulin glargine 100 unit/mL (3 12 unit subcut PM 06/04/23 09/28/23 History mL) subcutaneous pen (Lantus Solostar U-100 Insulin) lisinopril 5 mg tablet 5 mg PO QAM 06/04/23 09/28/23 History semaglutide (weight loss) 0.5 0.5 mg (0.5 mL) subcut Q7D #2 mL 06/17/23 09/28/23 Rx mg/0.5 mL subcutaneous pen injector (Wegovy) FreeStyle Rosalie 2 Sensor (flash #6 ea 06/24/23 09/28/23 Rx glucose sensor) ferrous sulfate 325 mg (65 mg 325 mg PO Q OTHER DAY #45 tabs 08/03/23 09/28/23 Rx iron) tablet hydrocodone 10 mg-acetaminophen 1 tab PO Q6H PRN Pain 08/03/23 09/28/23 History 325 mg tablet cholecalciferol (vitamin D3) 50 50 mcg PO QPM #90 caps 08/29/23 09/28/23 Rx mcg (2,000 unit) capsule furosemide 20 mg tablet 20 mg PO QAM #30 tabs 08/29/23 09/28/23 Rx levothyroxine 200 mcg tablet 200 mcg PO QAM #30 tabs 08/29/23 09/28/23 Rx potassium chloride 20 mEq 20 meq PO QAM #90 tabs 08/30/23 09/28/23 Rx tablet,extended release hydrocortisone 10 mg tablet See Rx Instructions PO BID #135 08/31/23 09/28/23 Rx tabs desmopressin 0.1 mg tablet (DDAVP) 0.4 mg (4 x 0.1 mg) PO BID #240 09/02/23 09/28/23 Rx tabs albuterol sulfate 90 mcg/actuation 1 inh inhalation QID PRN Shortness 09/08/23 09/28/23 Rx aerosol inhaler Of Breath Or Wheezing #6.7 grams divalproex 500 mg tablet,delayed 1,000 mg (2 x 500 mg) PO BID 30 09/14/23 09/28/23 Rx release days #120 tabs lacosamide 150 mg tablet 150 mg PO BID #60 tabs 09/14/23 09/28/23 Rx propranolol 120 mg capsule,24 120 mg PO QPM #30 caps 09/14/23 09/28/23 Rx hr,extended release rimegepant 75 mg disintegrating 75 mg PO DAILY PRN Migraine 09/14/23 09/28/23 Rx tablet (Nurtec ODT) Headache #8 tabs somatropin 12 mg/mL (36 unit/mL) 0.3 mg (0.025 mL) subcut DAILY #2 09/16/23 09/28/23 Rx subcutaneous cartridge ea lorazepam 0.5 mg tablet 0.5 mg PO DAILY PRN Seizure 09/19/23 09/28/23 History Activity rosuvastatin 20 mg tablet 20 mg PO QAM 09/19/23 09/28/23 History pantoprazole 40 mg tablet,delayed 40 mg PO BID #60 tabs 09/28/23 09/28/23 Rx release Inpatient Medication List Albuterol (Albuterol Hfa 8 Gm Inhaler) 1 puffs INH QID PRN PRN Reason: Shortness Of Breath Or Wheezin Stop: 10/28/23 22:06 Last Admin: 09/28/23 23:06 Dose: 1 puffs Documented By: MAEGAN Desmopressin Acetate (Desmopressin Acetate 0.1 Mg Tab) 0.4 mg PO BID OBDULIO Stop: 10/28/23 22:06 Last Admin: 09/29/23 09:36 Dose: 0.4 mg Documented By: Admin: 09/28/23 23:07 Dose: 0.4 mg Documented By: MAEGAN Divalproex Sodium (Divalproex Delay Release 500 Mg Tab) 1,000 mg PO BID OBDULIO Stop: 10/28/23 22:06 Last Admin: 09/29/23 09:10 Dose: 1,000 mg Documented By: Admin: 09/28/23 23:09 Dose: 1,000 mg Documented By: MAEGAN Enoxaparin Sodium (Enoxaparin Inj 40 Mg/0.4 Ml Syr) 40 mg SQ HS OBDULIO Stop: 10/28/23 22:06 Last Admin: 09/28/23 23:10 Dose: 40 mg Documented By: MAEGAN Finasteride (Finasteride 5 Mg Tab) 5 mg PO QAM [facility]; Protocol Stop: 10/29/23 08:59 Last Admin: 09/29/23 08:48 Dose: 5 mg Documented By: PUSHPA Furosemide (Furosemide 20 Mg Tab) 20 mg PO QAM [facility] Stop: 10/29/23 08:59 Last Admin: 09/29/23 08:48 Dose: 20 mg Documented By: PUSHPA Hydrocortisone (Hydrocortisone 10 Mg Tab) 20 mg PO QAM [facility] Stop: 10/29/23 08:59 Last Admin: 09/29/23 08:48 Dose: 20 mg Documented By: PUSHPA Lorazepam 2 mg/ Syringe 2 mls @ 2 mls/min IV PRN PRN PRN Reason: Seizures Stop: 10/28/23 22:06 Last Admin: 09/28/23 23:20 Dose: 2 mls/min Documented By: MAEGAN Insulin Aspart (Insulin Aspart Per Unit Charge) 0 units SC Q6 OBDULIO Stop: 10/29/23 00:00 Last Admin: 09/29/23 05:59 Dose: Not Given Documented By: Admin: 09/29/23 02:47 Dose: Not Given Documented By: NESTOR Lacosamide (Lacosamide 50 Mg Tablet) 150 mg PO BID OBDULIO Stop: 10/28/23 22:06 Last Admin: 09/29/23 09:36 Dose: 150 mg Documented By: Admin: 09/28/23 23:07 Dose: 150 mg Documented By: MAEGAN Levothyroxine Sodium (Levothyroxine Sodium 200 Mcg Tablet) 200 mcg PO DAILYBB [facility] Stop: 10/29/23 06:29 Last Admin: 09/29/23 05:42 Dose: Not Given Documented By: NESTOR Lisinopril (Lisinopril 5 Mg Tab) 5 mg PO QAM OBDULIO Stop: 10/29/23 08:59 Last Admin: 09/29/23 08:49 Dose: 5 mg Documented By: PUSHPA Grimes Carbonate (Grimes Carbonate 300 Mg Tab) 300 mg PO BID OBDULIO Stop: 10/28/23 22:06 Last Admin: 09/29/23 09:36 Dose: 300 mg Documented By: Admin: 09/28/23 23:09 Dose: 300 mg Documented By: MAEGAN Mirtazapine (Mirtazapine Tab 15 Mg Tab) 30 mg PO HS OBDULIO Stop: 10/28/23 22:06 Last Admin: 09/28/23 23:10 Dose: 30 mg Documented By: MAEGAN Miscellaneous (Brexpiprazole [Rexulti] - Order Awaiting Action) 1 each N/A QS OBDULIO Stop: 10/29/23 00:00 Last Admin: 09/29/23 09:37 Dose: Not Given Documented By: Admin: 09/29/23 02:27 Dose: Not Given Documented By: NESTOR Miscellaneous (Somatropin 12 Mg/Ml - Order Awaiting Action) 1 each N/A QS OBDULIO Stop: 10/29/23 00:00 Last Admin: 09/29/23 09:37 Dose: Not Given Documented By: Admin: 09/29/23 02:27 Dose: Not Given Documented By: NESTOR Pantoprazole Sodium (Pantoprazole 40 Mg Tab) 40 mg PO BID OBDULIO Stop: 10/28/23 22:06 Last Admin: 09/29/23 09:10 Dose: 40 mg Documented By: Admin: 09/28/23 23:08 Dose: 40 mg Documented By: MAEGAN Potassium Chloride (Potassium Chloride Crtab 20 Meq Tabcr) 20 meq PO QAM OBDULIO Stop: 10/29/23 08:59 Last Admin: 09/29/23 08:49 Dose: 20 meq Documented By: PUSHPA Prazosin HCl (Prazosin Hcl 1 Mg Cap) 5 mg PO HS OBDULIO Stop: 10/28/23 22:06 Last Admin: 09/28/23 23:08 Dose: 5 mg Documented By: MAEGAN Propranolol HCl (Propranolol Hcl 60 Mg [place]) 120 mg PO QPM OBDULIO Stop: 10/28/23 22:06 Last Admin: 09/28/23 23:11 Dose: 120 mg Documented By: MAEGAN Rosuvastatin Calcium (Rosuvastatin Calcium 20 Mg Tab) 20 mg PO QAM OBDULIO Stop: 10/29/23 08:59 Last Admin: 09/29/23 08:49 Dose: 20 mg Documented By: PUSHPA Tamsulosin HCl (Tamsulosin Hcl 0.4 Mg Cap) 0.4 mg PO QAM OBDULIO Stop: 10/29/23 08:59 Last Admin: 09/29/23 08:48 Dose: 0.4 mg Documented By: PUSHPA Discontinued Medications Hydrocortisone Sodium Succinate (Hydrocortisone Sod Succinate 100 Mg/2 Ml Vial) 100 mg IV NOW STA Stop: 09/28/23 17:54 Last Admin: 09/28/23 18:34 Dose: 100 mg Documented By: OSBALDO Sodium Chloride (Nss) 1,000 mls @ 999 mls/hr IV .Q1H1M ONE Stop: 09/28/23 15:38 Last Infusion: 09/28/23 16:40 Dose: Infused Documented By: Admin: 09/28/23 14:46 Dose: 999 mls/hr Documented By: BRADLY Valproic Acid 1,000 mg/ (Dextrose) 60 mls @ 55 mls/hr IV NOW STA Stop: 09/28/23 15:45 Last Infusion: 09/28/23 16:40 Dose: Infused Documented By: Admin: 09/28/23 15:26 Dose: 55 mls/hr Documented By: BRADLY Magnesium Sulfate/Dextrose (Magnesium Sulfate / D5w) 1 gm in 100 mls @ 200 mls/hr IV Q30M OBDULIO Stop: 09/28/23 17:08 Last Infusion: 09/28/23 17:44 Dose: Infused Documented By: Admin: 09/28/23 17:16 Dose: 200 mls/hr Documented By: Infusion: 09/28/23 17:15 Dose: Infused Documented By: Admin: 09/28/23 16:45 Dose: 200 mls/hr Documented By: OSBALDO Magnesium Sulfate/Dextrose (Magnesium Sulfate / D5w) 1 gm in 100 mls @ 200 mls/hr IV Q30M [facility] Stop: 09/28/23 18:53 Last Infusion: 09/28/23 23:21 Dose: Infused Documented By: Admin: 09/28/23 19:45 Dose: 200 mls/hr Documented By: Infusion: 09/28/23 19:45 Dose: Infused Documented By: Admin: 09/28/23 19:15 Dose: 200 mls/hr Documented By: OSBALDO Lacosamide 100 mg/ Sodium (Chloride) 60 mls @ 120 mls/hr IV NOW STA Stop: 09/28/23 18:04 Last Infusion: 09/28/23 19:18 Dose: Infused Documented By: Admin: 09/28/23 18:47 Dose: 120 mls/hr Documented By: OSBALDO Lorazepam (Lorazepam 1 Mg/1 Ml Syr Ed Inj Use) 1 mg IV ONE STA Stop: 09/28/23 14:42 Last Admin: 09/28/23 14:30 Dose: 1 mg Documented By: MARK Lorazepam (Lorazepam 2 Mg/1 Ml Vial) Confirm Administered Dose 2 mg .ROUTE .STK- MED ONE Stop: 09/28/23 17:44 Last Admin: 09/28/23 17:47 Dose: Not Given Documented By: OSBALDO Lorazepam (Lorazepam 1 Mg/1 Ml Syr Ed Inj Use) 1 mg IV ONE STA Stop: 09/28/23 17:47 Last Admin: 09/28/23 17:47 Dose: 1 mg Documented By: OSBALDO Lorazepam (Lorazepam 2 Mg/1 Ml Vial) Confirm Administered Dose 2 mg .ROUTE .STK- MED ONE Stop: 09/28/23 23:21 Last Admin: 09/28/23 23:24 Dose: Not Given Documented By: MAEGAN Description This is a 21 electrode EEG with a single channel dedicated to limited EKG. The electrodes were placed in accordance with the International 10-20 system. Interpretation The predominant background activity consists of a very well modulated 8 Hz activity, of up to 40 mV in amplitude,seen symmetrically distributed over the posterior head regions bilaterally, spreading symmetrically anteriorly. This activity attenuates with eye-opening and other alerting procedures. Photic stimulation was performed and elicited no change in the background activity and no abnormal responses were seen. Hyperventilation was not performed. A minimal amount of muscle and movement artifact activity contaminated the recording and did not hinder interpretation to any significant degree. Throughout the recording, no focal abnormalities, abnormal slow activity, or potentially epileptogenic discharges were seen. The patient did not enter drowsiness or sleep. In summary, this EEG was normal during wakefulness, at a time which was about 5 or 10 minutes after a 1 minute generalized tonic/clonic event. In addition he was awake alert follow commands immediately after the event. No focal abnormalities, potentially epileptogenic discharges, or abnormal slow activity was seen. Clinical Correlation Although seizure disorder can not be excluded with a normal EEG, this EEG was done so close to his event that I feel clinically comfortable to say that this was likely a pseudo-seizure. There was no postictal slowing seen [facility] EEG Procedure Codes Indication for Procedure (1) Recurrent seizures: Neurology Neurology: 56075 EEG include record awake & drowsy
[2023-09-29] MEDS ORDERED: LORazepam 2 MG in SYRINGE 1 ML IV PRN (12:47)
[2023-09-29] MEDS: DULoxetine HCL 60 MG CAP PO SCH (13:27)
--- NOTE | 2023-09-29 17:31 | Billing Data ---
Date of Service September 29, 2023 Coding Level of Care Code 47218 SUB INP/OBS CARE
[2023-09-29] MEDS: PROPRANOLOL HCL 60 MG LA CAP PO SCH (20:07)
[2023-09-29] MEDS: PRAZOSIN HCL 1 MG CAP PO SCH (20:07)
[2023-09-29] MEDS: MIRTAZAPINE TAB 15 MG TAB PO SCH (20:07)
[2023-09-29] MEDS: ENOXAPARIN INJ 40 MG/0.4 ML SYR SQ SCH (20:08)
[2023-09-29] MEDS ORDERED: LANTUS PER UNIT CHARGE SC SCH (21:00)
[2023-09-29] MEDS ORDERED: HYDROCORTISONE 10 MG TAB PO SCH (21:00)
[2023-09-29] MEDS ORDERED: traZODone HCL 100 MG TAB PO SCH (21:00)
[2023-09-29] MEDS ORDERED: DULoxetine HCL 30 MG CAP PO SCH (21:00)
[2023-09-30] MEDS: LEVOTHYROXINE SODIUM 200 MCG TABLET PO SCH (06:35)
[2023-09-30 07:29] LABS: Basophils # (auto) 0.06 K/uL (0.00-0.20); Basophils % (auto) 0.7 %; Eosinophils # (auto) 0.08 K/uL (0.00-0.50); Eosinophils % (auto) 0.9 %; Hematocrit (blood only) 41.3 % (42.0-52.0); Hemoglobin 13.8 g/dl (14.0-18.0); Immature Granulocytes # (auto) 0.19 K/uL (0.01-0.20); Immature Granulocytes % (auto) 2.1 %; Lymphocytes # (auto) 2.87 K/uL (1.20-3.40); Lymphocytes % (auto) 31.1 %; Mean Corpuscular Hemoglobin 29.7 pg (25.0-34.0); Mean Corpuscular Hgb Conc 33.4 g/dL (32.0-36.0); Mean Platelet Volume 8.4 fL (9.4-12.4); Monocytes # (auto) 0.64 K/uL (0.11-0.59); Monocytes % (auto) 6.9 %; Neutrophils # (auto) 5.39 K/uL (1.40-6.50); Neutrophils % (auto) 58.3 %; Nucleated RBC # (auto) 0.02 K/uL (0.00-0.12); Nucleated RBC % (auto) 0.2 %; Platelet Count 144 K/uL (130-400); RDW Coefficient of Variation 13.5 % (11.5-14.5); RDW Standard Deviation 43.7 fL (36.4-46.3); Red Blood Count 4.64 M/uL (4.70-6.10); White Blood Count 9.23 K/ul (4.8-10.8)
[2023-09-30 07:50] LABS: BUN Creatinine Ratio 17.6 (10-20); Calcium 8.7 mg/dl (8.6-10.3); Creatinine Clr Calc Pharmacy 107.2 ml/min; Est GFR (African American) 95.5 ml/min; Est GFR (Non-African American) 82.4 ml/min; Potassium 4.1 mmol/L (3.5-5.1)
[2023-09-30] MEDS: DESMOPRESSIN ACETATE 0.1 MG TAB PO SCH (08:26)
[2023-09-30] MEDS: DIVALPROEX DELAY RELEASE 500 MG TAB PO SCH (08:26)
[2023-09-30] MEDS: LITHIUM CARBONATE 300 MG TAB PO SCH (08:26)
[2023-09-30] MEDS: PANTOprazole 40 MG TAB PO SCH (08:27)
[2023-09-30] MEDS: lisinopril 5 MG TAB PO SCH (08:27)
[2023-09-30] MEDS: FINASTERIDE 5 MG TAB PO SCH (08:27)
[2023-09-30] MEDS: FUROSEMIDE 20 MG TAB PO SCH (08:27)
[2023-09-30] MEDS: DULoxetine HCL 60 MG CAP PO SCH (08:27)
[2023-09-30] MEDS: ROSUVASTATIN CALCIUM 20 MG TAB PO SCH (08:27)
[2023-09-30] MEDS: HYDROCORTISONE 10 MG TAB PO SCH (08:27)
[2023-09-30] MEDS: TAMSULOSIN HCL 0.4 MG CAP PO SCH (08:28)
[2023-09-30] MEDS: INSULIN ASPART PER UNIT CHARGE SC SCH (08:28)
[2023-09-30] MEDS: POTASSIUM CHLORIDE CRTAB 20 MEQ TABCR PO SCH (08:29)
--- NOTE | 2023-09-30 08:41 | Discharge Summary ---
Date of Service September 30, 2023 Admission HPI Per Admitting Provider Anders is a 53-year-old male with PMH of T2DM, bipolar disorder, syncope, MR, migraine, pseudoseizures, pituitary DI/hypogonadism/hypothyroidism, anxiety, depression, and BPH. Presented to the ED after being a code purple for an observed seizure in the PACU at 1138 following an endoscopy for dysphagia. He was given Versed 2 mg IM, and then Versed 2 mg IV, and seizure symptoms resolved. He experienced a second seizure at 1345. Patient was sent to the ED and had a third seizure while awaiting discharge from the ER; given 1 mg of IV Ativan and valproic acid 1000 mg. No at home O2 us. He reports that he took most of his morning meds, but not the ones he held for the endoscopy. Patient's fianc (Alana) is present at the bedside and provides additional history; she reports that he has had 2 additional seizures in the past 1.5 hours. She also reports that he usually has a seizure every 1-2 weeks, but not more than one in a single day. Vitals stable at time of admission. ED course: Lorazepam 1 mg IV, valproic acid 1000 mg, IVF, magnesium sulfate, hydrocortisone 100 mg IV, and lacosamide 100 mg ROS: (Difficult to obtain as patient is lethargic following medications given) Patient endorses photophobia, SOB, pleuritic CP, abdominal cramping, nausea, and urinary incontinence following seizure (per patient). Patient denies fever, chills, nightsweats, biting tongue, CP, abdominal pain, or vomiting. Patient is DNR/DNI and does not want a breathing tube under any circumstances. Admission Exam Per Admitting Provider General: no acute distress; lethargic; eyes closed; SPO2 87% on 2L NC; cooperative HEENT: normocephalic, atraumatic; no scleral icterus; moist mucus membrane; no lesions on tongue Neck: supple; no lymphadenopathy; trachea midline Skin: warm, dry without signs of tenting; no cyanosis; no rashes, bruising, lesions, or erythema noted CV: chest wall NTP; RRR; S1/S2 normal; no murmurs/rubs/gallops; pulses intact and symmetric at radial, DP, and PT Lungs: no acute respiratory distress; symmetrical chest wall expansion; clear breath sounds across all lung kong w/o adventitious sounds; no wheezing ABD: Soft, NTP; BS present; no rebound/guarding; no distention MSK: no tics or fasciculations; no edema noted in the LEs b/l Neuro: Lethargic; difficulty keeping eyes open, but responds to questioning with one-word sentences; not oriented to time/location; oriented to name/birthday Principal Diagnosis Psychogenic nonepileptic seizures Discharge Exam General:Alert and oriented, no acute distress, HEENT: Normocephalic, moist oral mucosa, Cardio: Regular rate and rhythm, no murmur, Resp:Lungs clear to auscultation b/l, no wheezes or rhonchi, GI: Soft and nontender, bowel sounds active Skin: Warm, pink, dry, Psych: Mood-affect congruence. Discharge Data Allergies Allergy/AdvReac Type Severity Reaction Status Date / Time clindamycin Allergy Intermediate SWELLING Verified 09/28/23 17:12 Iodinated Contrast Media Allergy Intermediate face/eye Verified 09/28/23 17:12 swelling Quinolones Allergy Intermediate HIVES Verified 09/28/23 17:12 Consultations 09/28/23 17:14 ED Decision to Admit Stat 09/28/23 22:07 Consult Neurology Routine Ordered Studies 09/28/23 17:48 CT head/brain wo con Stat Hospital Course (1) Recurrent seizures: (2) Esophageal dysphagia: (3) BPH (benign prostatic hyperplasia): (4) Hypomagnesemia: (5) Diabetes: (6) Anxiety: (7) Mitral regurgitation: (8) Panhypopituitarism: (9) Bipolar disorder: (10) Depression: Plan Pt is a 53 yo male with a past medical history of T2DM, bipolar disorder, syncope, MR, migraine, pseudoseizures, pituitary DI/hypogonadism/hypothyroidism, anxiety, depression, and BPH who presents to the hospital on 09/28 for seizure after endoscopy. Pt has been stable overnight and wants to go home at this point. As this is reasonable, will D/C. Pt to f/u with neurology after discharge. Recurrent seizures, likely PNES - pt was a code purple for seizure in the PACU at 1138 on 09/28 following an endoscopy, seized again at 1345, then 3 times in the ED - received lorazepam 1 mg IV, Depakote 1000 mg, hydrocortisone 100 mg, and lacosamide 100 mg in the ED - Valproic acid level WNL at 93, - pt had seizure-like activity yesterday, EEG done at the time showed no slowing postictal so likely suggests pt having pseudoseizures - neurology consulted; likely pt having repeat pseudoseizures but ok for discharge with OP f/u Note: CAUTION respiratory depression with continued benzodiazepine use; patient is DNR/DNI and wants no breathing tube under any circumstances Diabetes - A1c 5.6 09/29/23 - continue home regime at discharge Esophageal dysphagia - Patient underwent endoscopy on 09/28 Panhypopituitarism - TSH low at 0.010 - Random cortisol WNL 7.32 - Continue levothyroxine, desmopressin, somatropin, hydrocortisone Bipolar disorder - Opdyke level low <0.1 - Continue lithium Depression - continue duloxetine BPH (benign prostatic hyperplasia) - Continue dutasteride and alfuzosin Mitral regurgitation Anxiety DNR/DNI VTE PPx: SCDs, Lovenox 40 mg SQ q24h Total Time Total Time Spent Total Time Spent (In Minutes): <30 Discharge Plan Discharge Items Patient Disposition: Home - Self-Care Reason For Visit: SEIZURES Discharge Diagnosis: Psychogenic nonepileptic seizures Activity: Per Instructions section Non-emergency contact: Primary Care Provider and Neurologist Call non-emergency contact if: you have any medication questions and your symptoms worsen Follow-up/Referrals: Larry Amaral MD [Primary Care Provider] - 10/04/23 11:30 am (Follow up scheduled 10/04/23 @ 11:30) Diet: Regular Addtl Attending Provider Instructions: You were admitted for recurrent seizure-like activity. You were found to have psychogenic nonepileptic seizures (PNES). This type of seizure is typically exacerbated by stress or illness, and with your recent EGD, we suspect that the increase in seizure activity is related to the increase in recent stressors. We feel it is safe for you to go home at this time. Medications: Your medication list has been reviewed and reconciled upon discharge to ensure accuracy and continuity of care. An updated list of all your medications is included with your hospital discharge paperwork. Please review this list closely, and make note of any changes. You are to continue your Divalproex 1000 mg twice daily and Lacosamide 150 mg twice daily until your follow-up appointment with neurology. If you have any issues filling these prescriptions, please call [phone] and ask to leave a message for Dr. Shannon. Take your medications as instructed; do not skip a dose of your medicines. Make sure all of your doctors know every medicine you are taking (including [id number] medicines, vitamins, and supplements). Call your primary care provider before taking any new medicines (including over- the-counter medicines, vitamins, and supplements), because some of these may interact with your current medications, or may make your symptoms worse. Tell your primary care provider if you cannot afford your medications. Activity: You can do normal everyday activities as your body allows. Take rest breaks if you feel tired. Do not overexert. Stop activity if you have pain, shortness of breath or feel dizzy. Follow-up appointments: Make an appointment with your primary care physician within one week of discharge. A copy of this summary will be sent to them. Every time you see your primary care physician, or any other doctor, bring your medication list, and a list of questions. Please also make sure you follow-up with your neurologist after discharge from the hospital. CONTACT YOUR PRIMARY CARE PROVIDER if you experience any of the following: Shortness of breath or difficulty breathing Swelling of your feet, ankles, hands or abdomen Feeling tired with normal activity or experiencing dizziness or fainting Difficulty following your treatment plan, or difficulty taking medications CALL 911 OR GO TO THE EMERGENCY DEPARTMENT if you experience any of the following: Severe abdominal pain or nausea/vomiting Severe chest pain, or chest pain that radiates (moves) to your jaw or arm Sudden, severe shortness of breath or difficulty breathing Thank you for allowing us to participate in your care. Pending Studies at Discharge: No Stand-Alone Forms: My [facility] PSafe Medications and DC Order Prescriptions: Continued lithium carbonate 300 mg tablet 300 mg PO AMHS trazodone 100 mg tablet 100 mg PO HS alfuzosin 10 mg tablet extended release 24 hr 10 mg PO QAM Qty: 90 3RF Rx Instructions: TAKE THIS MED AFTER A MEAL Botox 200 unit recon soln See Rx Instructions IM .COMPLEX Qty: 1 3RF Rx Instructions: 155 UNITS IM IN THE FACE AND NECK MUSCLES EVERY 12 WEEKS PER MIGRAINE PROTOCOL fluticasone propionate [Flonase Allergy Relief] 50 mcg/actuation spray,suspension 1 spray intranasal HS PRN (Reason: allergy symptoms) Qty: 16 0RF Rx Instructions: administer into each nostril testosterone 20.25 mg/1.25 gram (1.62 %) gel in metered-dose pump 2 pump TOP PM Qty: 75 5RF Rx Instructions: apply 1 pump amount over max area of EACH upper arm and shoulder PDMP Queried ok to fill 03/17/2023 DS Wegovy 0.5 mg/0.5 mL pen injector 0.5 mg subcut Q7D Qty: 2 3RF Patient Comments: takes on Sundays > last dose 09/18/23 cholecalciferol (vitamin D3) 50 mcg (2,000 unit) capsule 50 mcg PO QPM Qty: 90 1RF furosemide 20 mg tablet 20 mg PO QAM Qty: 30 1RF levothyroxine 200 mcg tablet 200 mcg PO QAM Qty: 30 1RF potassium chloride 20 mEq tablet extended release 20 meq PO QAM Qty: 90 1RF Rx Instructions: to take with furosemide hydrocortisone 10 mg tablet See Rx Instructions PO BID Qty: 135 1RF Rx Instructions: orally twice a day; TAKE TWO TABLETS IN THE AM AND 1 TABLET IN THE PM. MAY DOUBLE THE DOSE IN TIMES OF STRESS. desmopressin [DDAVP] 0.1 mg tablet 0.4 mg PO BID Qty: 240 1RF albuterol sulfate 90 mcg/actuation HFA aerosol inhaler 1 inh inhalation QID PRN (Reason: Shortness Of Breath Or Wheezing) Qty: 6.7 0RF somatropin 12 mg/mL (36 unit/mL) cartridge 0.3 mg subcut DAILY Qty: 2 5RF Rx Instructions: dispose of cartridge after 21 days. cyclobenzaprine 10 mg tablet 10 mg PO BID PRN (Reason: muscle spasm) 30 Days Qty: 60 1RF (DME) FreeStyle Rosalie 2 Sensor Kit See Rx Instructions .Route Qty: 6 3RF Rx Instructions: Change every 14 days hydrocodone-acetaminophen 10-325 mg tablet 1 tab PO Q6H PRN (Reason: Pain) ferrous sulfate 325 mg (65 mg iron) tablet 325 mg PO Q OTHER DAY Qty: 45 3RF Rx Instructions: every other day (DME) FreeStyle Rosalie 2 [place] Misc See Rx Instructions .Route Qty: 1 0RF Rx Instructions: Check blood glucose before each meal (DME) OneTouch Verio test strips Strip See Rx Instructions .Route Rx Instructions: Test blood sugar two times daily Rexulti 3 mg tablet 3 mg PO QAM duloxetine 30 mg capsule,delayed release(DR/EC) 30 mg PO HS mirtazapine [Remeron] 30 mg tablet 30 mg PO HS celecoxib 200 mg capsule 200 mg PO DAILY PRN (Reason: Pain) metformin 1,000 mg tablet 1,000 mg PO BID ibuprofen [Advil] 200 mg tablet 400 mg PO Q6H PRN (Reason: Pain) Nurtec ODT 75 mg tablet,disintegrating 75 mg PO DAILY PRN (Reason: Migraine Headache) Qty: 8 6RF divalproex 500 mg tablet,delayed release (DR/EC) 1,000 mg PO BID 30 Days Qty: 120 6RF lacosamide 150 mg tablet 150 mg PO BID Qty: 60 5RF propranolol 120 mg capsule,extended release 24 hr 120 mg PO QPM Qty: 30 6RF Norditropin FlexPro 5 mg/1.5 mL (3.3 mg/mL) pen injector 0.3 mg SQ PM Qty: 2 5RF Hold Instructions: not availabe right now prazosin [Minipress] 5 mg capsule 5 mg PO HS duloxetine 60 mg capsule,delayed release(DR/EC) 60 mg PO QAM insulin glargine [Lantus Solostar U-100 Insulin] 100 unit/mL (3 mL) Insulin Pen 12 unit SUBCUT PM lisinopril 5 mg tablet 5 mg PO QAM acetaminophen 325 mg Tablet 650 mg PO Q6H PRN (Reason: pain) Qty: 30 0RF oxybutynin chloride 5 mg tablet 5 mg PO Q8H PRN (Reason: bladder spasms) Qty: 20 0RF docusate sodium [Colace] 100 mg capsule 100 mg PO BID PRN (Reason: Constipation) Rx Instructions: Take twice daily for 2 weeks, then as needed for constipation. rosuvastatin 20 mg tablet 20 mg PO QAM lorazepam 0.5 mg Tablet 0.5 mg PO DAILY PRN (Reason: Seizure Activity) pantoprazole 40 mg tablet,delayed release (DR/EC) 40 mg PO BID Qty: 60 5RF No Action dutasteride [Avodart] 0.5 mg capsule 0.5 mg PO QAM Qty: 90 1RF Discharge Orders: Discharge Order (Routine); Ordered 09/30/23 Ordered By: Berta Shannon Admission Data Admit Date/Time: 09/28/23 19:26 Attending Provider: James Esqueda Admit Provider: Taye Shafer Primary Care Provider: Larry Amaral Other Providers: Taye Shafer; Gennaro Ordonez Other Interventions: Discharge Summary Assessment (RN) Last Done: 09/30/23 11:46 Supervising Physician Co-Signing Physician Notes I personally examined the patient and verified all tinoco points of history and exam, discussed case, and agree with decision making with Dr Shannon wants to go home. Vitals noted, in general he is awake and alert but does fall asleep easily appears no distress. HEENT normocephalic atraumatic mucous membranes moist. Breathing unlabored no accessory muscle use good effort. Skin shows no rashes no pallor or icterus. Seizure-like activitystrongly suspect PNESexplained the diagnosis to patient 09/29, he expressed some degree of understanding. Home today since he feels more safe, appreciate neurology input. Otherwise as above. Resident Activity Tracking Resident Involvement: Resident Care Provided Care Provided: Adult Hospital Medicine
--- NOTE | 2023-09-30 08:57 | Neurology Progress Note ---
Date of Service September 30, 2023 Assessment & Plan (1) Recurrent seizures: Plan Patient has a history of seizure disorder with generalized tonic-clonic events and proven generalized events which were pseudoseizures (in an epilepsy monitoring unit at [facility] in 2020). He is having multiple spells since an endoscopy procedure September 28. On September 29, I came up to him a minute or 2 after a generalized spell witnessed by a nurse and he was lucid, answering questions and following commands well with no focal abnormalities or meningeal signs. EEG following this episode (within 5-10 minutes) was perfectly normal with no slowing, focal findings, or potentially epileptogenic discharges. He would another event September 29 in which he was talking throughout bilateral movements and was lucid with positive recall These episodes September 29 were very likely pseudoseizures. He may have had pseudoseizures September 28, although I did not witnessed them. He does have significant psychiatric issues on multiple psychiatric medications. He has tried and failed a number of medications for seizures over time as well. He has a history of migraine headaches which are stable on Botox. He has a mild idiopathic polyneuropathy which is stable. There is a history of essential tremor likely due to Depakote. It was not prominent this morning. Patient is post pituitary tumor removal with panhypopituitarism followed by endocrinology. His last MRI was in February of 2022 and showed no recurrence Recommendations: 1. Consider MRI of the brain with and without contrast (with attention to pituitary gland) as an outpatient. 2. Continue valproic acid 1000 mg twice daily 3. Continue lacosamide 150 mg twice daily 4. I can follow-up as an outpatient as she may have an appointment scheduled already the near future. If not, follow-up with PA in 2-3 weeks. Overall, I spent a total of 35 minutes with this case including review of records, direct evaluation the patient at bedside, report generation, and discussion of the case with the patient and RN at bedside including differential diagnosis and treatment options. Admission and Anticipated Discharge Date Admission Date: September 28, 2023 Subjective Patient has no complaint of pain or headache. Yesterday patient had an episode of jerking of both arms and was talking throughout, according to the nurse. He remembered everything was on his phone almost immediately after the stiffening and jerking stopped. CBC and Chem profile were unremarkable. Glucose was 107. Blood pressure 137/61 with a pulse in the 60s. Results & Data Vital Signs (Past 12 Hours) Vital Signs Temp Pulse Pulse Resp BP Pulse Ox O2 Del Method 09/30/23 07:00 64 09/30/23 07:00 36.6 C 64 14 137/61 97 Room Air 09/30/23 03:27 36.5 C 75 16 109/74 96 Room Air 09/29/23 23:05 36.5 C 87 20 126/75 Room Air 09/29/23 22:05 85 Exam (Neuro) Physical Exam: The patient is awake, alert, and attentive, with normal speech and communication. Mood is normal and affect is appropriate. The patient is fully oriented and has intact long and short term memory. Extraocular eye muscles are intact without nystagmus. Facial strength and symmetry is normal bilaterally. Facial sensation is normal bilaterally in all 3 divisions of the fifth cranial nerve. Tongue is midline with normal strength bilaterally. Stance sitting up is normal Coordination of the arms is normal, without tremor or ataxia bilaterally. Motor strength is 5/5 in all major muscle groups of the arms and legs bilaterally, both proximally and distally. Muscle tone is normal in the limbs, without rigidity or spasticity. PG Care Time/CCT Total # of Minutes Spent Total Time Spent with Patient: Total time spent is greater than 50% in coordination of care (as documented) at patient's floor/unit and/or counseling patient: Coding Level of Care Code 66913 SUB INP/OBS CARE 2/35MIN Diagnoses Recurrent seizures G40.909
[2023-09-30] MEDS ORDERED: FERROUS SULFATE 325 MG TAB PO SCH (09:00)
[2023-09-30] MEDS: LACOSAMIDE 50 MG TABLET PO SCH (09:13)
--- NOTE | 2023-09-30 12:39 | Electrocardiogram Report ---
Test Reason : Blood Pressure : / mmHG Vent. Rate : 075 BPM Atrial Rate : 075 BPM P-R Int : 160 ms QRS Dur : 084 ms QT Int : 374 ms P-R-T Axes : 059 007 031 degrees QTc Int : 417 ms Normal sinus rhythm Normal ECG When compared with ECG of 28-SEP-2023 14:45, No significant change was found Confirmed by Larry Phillips ([id number]) on 09/30/2023 12:38:37 PM Referred By: Srinivas Case Confirmed By:Larry Phillips
--- NOTE | 2023-09-30 18:59 | Billing Data ---
Date of Service September 30, 2023 Coding Level of Care Code 49371 IN/OBS DISCH 30 MIN/LESS
== END 2023-09-30 12:12 | disposition home or self-care (01) | DRG 880 ==
LOC: EDSEX → ED 14:32 → EDINP 19:26 → SUATTDRO 19:26 → 2S 09-29 02:26
DX: Z79.890 Hormone replacement therapy; Z79.85 Long-term (current) use of injectable non-insulin antidiabetic drugs; Z91.199 Patient's noncompliance with other medical treatment and regimen due to unspecified reason; F31.9 Bipolar disorder, unspecified; E27.40 Unspecified adrenocortical insufficiency; Z86.16 Personal history of COVID-19; E11.9 Type 2 diabetes mellitus without complications; Z91.041 Radiographic dye allergy status; F44.5 Conversion disorder with seizures or convulsions; E83.42 Hypomagnesemia; I34.0 Nonrheumatic mitral (valve) insufficiency; G43.909 Migraine, unspecified, not intractable, without status migrainosus; E23.0 Hypopituitarism; Z88.8 Allergy status to other drugs, medicaments and biological substances; G47.33 Obstructive sleep apnea (adult) (pediatric); Z88.1 Allergy status to other antibiotic agents; E29.1 Testicular hypofunction; F43.10 Post-traumatic stress disorder, unspecified; Z99.89 Dependence on other enabling machines and devices; Z98.1 Arthrodesis status; M48.062 Spinal stenosis, lumbar region with neurogenic claudication; N40.1 Benign prostatic hyperplasia with lower urinary tract symptoms; E03.9 Hypothyroidism, unspecified; Z79.899 Other long term (current) drug therapy; Z66 Do not resuscitate; G40.89 Other seizures; I25.10 Atherosclerotic heart disease of native coronary artery without angina pectoris; R13.19 Other dysphagia; M54.16 Radiculopathy, lumbar region; E72.29 Other disorders of urea cycle metabolism

== ENCOUNTER 2023-12-02 09:36 | Observation (INO) ==
[2023-12-02] MEDS ORDERED: SODIUM CHLORIDE 0.9% 1,000 ML IV SCH (10:30)
--- NOTE | 2023-12-02 10:59 | XRay Report ---
XR chest 1V portable HISTORY: weakness COMPARISON: Chest 11/27/2023. FINDINGS: No pneumothorax. No pleural effusions. There are low lung volumes. The heart is mildly enla rged. There is perihilar interstitial/vascular thickening which has progressed suggestive of mild con gestive change. Old, healed left clavicle fracture again noted. No acute fractures identified. Bibasi lar densities favor atelectasis. IMPRESSION: Cardiomegaly with mild congestive change. ACT 112: Negative or not required by law. Electronically signed by: Orlando Garcia M.D. 12/02/2023 10:58 AM
--- NOTE | 2023-12-02 11:16 | Emergency Department Note ---
Impression & Plan Hypoglycemia, Leukocytosis, Hypertension ED Provider Note CHIEF COMPLAINT: Illness HISTORY OF PRESENT ILLNESS: This 53-year-old male patient past medical history of hypopituitariasm, adrenal insufficiency, anxiety, GERD, growth hormone deficiency, uncontrolled type 2 diabetes, bipolar disorder, ulcerative colitis, obstructive sleep apnea presents to the emergency department with complaints of "days" of illness. The patient states he was sent over by Dr. Amaral's office. He is hallucinating a bit, but states he cannot be sick like this anymore. He denies any fevers, but states he has been sweating quite often. REVIEW OF SYSTEMS: A review of systems was performed with positives and pertinent negatives listed in the history of present illness. 10 systems were reviewed and are otherwise negative. ALLERGIES: see below MEDICATIONS: see below PMH: see below SOCIAL HISTORY: see below DDx: Sepsis, viral etiology, metabolic abnormality, medication effect, serotonin syndrome, dehydration, intracranial mass, intracranial hemorrhage, malignancy among others PHYSICAL EXAM: Vital signs reviewed. General: Ill-appearing 53-year-old male, significantly diaphoretic and noted to be hypertensive. HEENT: No scleral icterus, PERRLA, neck supple. Atraumatic. Cardiovascular: Regular rate and rhythm, no extra sounds. Pulmonary: Clear to auscultation bilaterally, normal work of breathing. Abdomen: Soft, obese, nontender, nondistended, positive bowel sounds. Musculoskeletal: Atraumatic, no peripheral edema. Neurologic: Patient somnolent but arousable. Answers some questions appropriately, but seems to be hallucinating. Some answers do not make sense. Skin: Warm, dry, no rash EMERGENCY DEPARTMENT COURSE/MDM: This patient was evaluated and appeared to be in no significant distress. IV access was obtained and laboratory work was drawn. The patient was placed on the traffic monitor specialist noted to be in a normal sinus rhythm. Blood pressure was noted to be markedly elevated. Patient was changed as he was still profusely diaphoretic. Patient's laboratory work was pending and a [id number] blood glucose was obtained and noted to be 28. The patient was given 1 amp of D50 and IV D10 was ordered. A repeat blood glucose was 66 and a second amp of D50 was administered. CT imaging of the head was performed and reveals no evidence of acute intracranial hemorrhage. Chest x-ray was obtained and is clear. Patient's laboratory work reveals a WBC of 30, which is likely reactive secondary to the patient's marked hyperglycemia and recent steroid use. Patient has a complicated past medical history including diabetes insipidus, adrenal insufficiency and hypothyroidism, hypogonadism. Blood cultures were obtained and the patient was placed on IV vancomycin and IV cefepime. MRI of the lumbar spine was ordered to rule out epidural abscess due to his complaints of back pain for the last several weeks and lumbar decompression approximately a year ago. This study is negative for epidural fluid collection. I did discuss the case with the hospitalist service who will evaluate the patient for admission and further management. Patient's daily medications were ordered. MONITORING: An order for cardiac monitoring was placed and the patient is noted to be in a normal sinus rhythm at 91 beats per minute. RADIOLOGY: Chest x-ray to my interpretation reveals no evidence of focal lung consolidation or failure. CT imaging of the head to my interpretation reveals no evidence of acute intracranial hemorrhage. Otherwise defer to radiology's over read. EKG: To my interpretation reveals normal sinus rhythm at [address] segments. No PVC, no PAC. QTc of 428. No significant change from previous, dated November 27 DISPOSITION: admission I have personally spent 60 minutes of critical care time in the direct management of this patient. This was a life/limb threatening event. This 60 minutes is in excess of all separately billable procedures. Past Med/Surg History Medical History Hyperactive gag reflex BRCA gene positive tested positive in Aug 2023 [place] > reason for up coming EGD Family history of BRCA gene mutation PTSD (post-traumatic stress disorder) Epidural lipomatosis Chronic left sacroiliac pain Benzodiazepine overdose none since Nov 2022 Presence of cardiac device Loop recorder > last checked fall 2022 Hx of fracture of foot Sep 2022- right > cast since removed > still gets painful Fracture of fibula, right, closed Cerebral concussion May 2023 during seizure > no further issues Orthostatic hypotension Pseudoseizures Sensorineural hearing loss of both ears Rectal bleeding on occasion History of COVID-19 10/2021 - fatigue; resolved. Mitral valve regurgitation follows with Dr. Jacqueline Rubio Acute kidney injury September 2022 (s/p grand mal seizure) Panhypopituitarism Lower extremity edema Elevated LFTs Bilateral hand pain Pituitary neoplasm Dx'ed in 2001- s/p surgical resection and XRT Repeat surgery in 2018 secondary to tumor regrowth at [facility] Kidney stones HX Prostate mass benign Bladder mass benign Obstructive sleep apnea of adult cpap > non compliant per pt Surgical History S/P TURP (status post transurethral resection of prostate) History of lumbar fusion [facility] Jul 2022 History of cardiac cath 07/2021 - no stents S/P epidural steroid injection History of lithotripsy Status post right foot surgery replaced 5th metatarsal--hardware in place History of bladder surgery remove mass History of prostate surgery remove mass History of colonoscopy History of esophagogastroduodenoscopy (EGD) History of tooth extraction History of wisdom tooth extraction History of brain surgery x2---2004 @ [facility] [place], 2018 @ [facility]--for brain tumors > caused epilepsy Family History Grandmother (Paternal) Family history of diabetes mellitus Aunt Family history of diabetes mellitus Uncle Family history of diabetes mellitus Father Prostate cancer Heart disease Mother Cardiac disorder Grandmother (Maternal) Myocardial infarction Other Asthma Cancer Hypertension No family history of adverse response to anesthesia No family history of bleeding disorder Stroke Denies family history of Ovarian cancer Breast cancer Colorectal cancer Social History Smoking Status: Never smoker Tobacco Type: Smokeless Tobacco (Dip or Chew) Second Hand Exposure: No; Do You Dip or Chew Tobacco: No; Hx Alcohol Use: No Hx Substance Use: No Preferred Language: Amharic Communication Ability: Effective Communication Ability Comment: Unable to obtain due to patient condition. Visual Impairment: No Limitations Hearing Ability: Normal Apprentice Jockey Required: No Beliefs That Will Affect Care: None marital status: Single Current Living Situation: Significant Other current occupational status: unemployed Feels Safe at Home: Yes Childhood Exposure to Second-Hand Smoke: Yes (parents smoked) Seatbelt Use: always Assistive Devices: Cane Allergies Allergies Allergy/AdvReac Type Severity Reaction Status Date / Time clindamycin Allergy Intermediate SWELLING Verified 12/02/23 08:45 Iodinated Contrast Media Allergy Intermediate face/eye Verified 12/02/23 08:45 swelling Quinolones Allergy Intermediate HIVES Verified 12/02/23 08:45 Home Meds Home Medications Medication Instructions Recorded Confirmed lithium carbonate 300 mg tablet 300 mg PO AMHS 06/04/22 12/02/23 trazodone 100 mg tablet 100 mg PO HS 06/04/22 12/02/23 brexpiprazole 3 mg tablet (Rexulti) 3 mg PO QAM 06/23/22 12/02/23 celecoxib 200 mg capsule 200 mg PO DAILY PRN Pain 06/23/22 12/02/23 duloxetine 30 mg capsule,delayed 30 mg PO HS 06/23/22 12/02/23 release mirtazapine 30 mg tablet (Remeron) 30 mg PO HS 06/23/22 12/02/23 blood sugar diagnostic (OneTouch 08/06/22 12/02/23 Verio test strips) duloxetine 60 mg capsule,delayed 60 mg PO QAM 11/09/22 12/02/23 release prazosin 5 mg capsule (Minipress) 5 mg PO HS 11/09/22 12/02/23 docusate sodium 100 mg capsule 100 mg PO BID PRN Constipation 12/27/22 12/02/23 (Colace) ibuprofen 200 mg tablet (Advil) 400 mg PO Q6H PRN Pain 02/21/23 12/02/23 metformin 1,000 mg tablet 0 mg PO BID 05/23/23 12/02/23 insulin glargine 100 unit/mL (3 0 unit subcut PM 06/04/23 12/02/23 mL) subcutaneous pen (Lantus Solostar U-100 Insulin) lisinopril 5 mg tablet 5 mg PO QAM 06/04/23 12/02/23 hydrocodone 10 mg-acetaminophen 1 tab PO Q6H PRN Pain 08/03/23 12/02/23 325 mg tablet lorazepam 0.5 mg tablet 0.5 mg PO DAILY PRN Seizure 09/19/23 12/02/23 Activity rosuvastatin 20 mg tablet 20 mg PO QAM 09/19/23 12/02/23 levothyroxine 200 mcg tablet 0 mcg PO QAM 12/02/23 12/02/23 oxybutynin chloride 5 mg 5 mg PO QAM 12/02/23 12/02/23 tablet,extended release 24 hr somatropin 12 mg/mL (36 unit/mL) 0 mg subcut DAILY 01/12/24 01/12/24 subcutaneous cartridge somatropin 5 mg/1.5 mL (3.3 mg/mL) 0 mg subcut PM 12/02/23 12/02/23 subcutaneous pen injector (Norditropin FlexPro) Previous Rx's Medication Instructions Recorded cyclobenzaprine 10 mg tablet 10 mg PO BID PRN muscle spasm 30 09/18/20 days #60 tabs acetaminophen 325 mg tablet 650 mg (2 x 325 mg) PO Q6H PRN 03/01/22 pain #30 tabs alfuzosin 10 mg tablet,extended 10 mg PO QAM #90 tabs 08/05/22 release 24 hr oxybutynin chloride 5 mg tablet 5 mg PO Q8H PRN bladder spasms #20 12/06/22 tabs onabotulinumtoxinA 200 unit See Rx Instructions IM .COMPLEX #1 12/28/22 solution for injection (Botox) ea fluticasone propionate 50 1 spray intranasal HS PRN allergy 03/16/23 mcg/actuation nasal symptoms #16 grams spray,suspension (Flonase Allergy Relief) FreeStyle Rosalie 2 [place] (flash #1 ea 05/13/23 glucose scanning reader) semaglutide (weight loss) 0.5 0.5 mg (0.5 mL) subcut Q7D #2 mL 06/17/23 mg/0.5 mL subcutaneous pen injector (Wegovy) FreeStyle Rosalie 2 Sensor (flash #6 ea 06/24/23 glucose sensor) ferrous sulfate 325 mg (65 mg 325 mg PO Q OTHER DAY #45 tabs 08/03/23 iron) tablet cholecalciferol (vitamin D3) 50 50 mcg PO QPM #90 caps 08/29/23 mcg (2,000 unit) capsule potassium chloride 20 mEq 20 meq PO QAM #90 tabs 08/30/23 tablet,extended release divalproex 500 mg tablet,delayed 1,000 mg (2 x 500 mg) PO BID 30 09/14/23 release days #120 tabs lacosamide 150 mg tablet 150 mg PO BID #60 tabs 09/14/23 rimegepant 75 mg disintegrating 75 mg PO DAILY PRN Migraine 09/14/23 tablet (Nurtec ODT) Headache #8 tabs pantoprazole 40 mg tablet,delayed 40 mg PO BID #60 tabs 11/08/23 release dutasteride 0.5 mg capsule 0.5 mg PO QAM #90 caps 09/30/23 (Avodart) propranolol 60 mg capsule,24 60 mg PO DAILY #30 caps 10/10/23 hr,extended release furosemide 20 mg tablet 20 mg PO QAM #30 tabs 10/21/23 desmopressin 0.1 mg tablet (DDAVP) 0.4 mg (4 x 0.1 mg) PO BID #240 10/27/23 tabs hydrocortisone 10 mg tablet See Rx Instructions PO BID #135 10/27/23 tabs testosterone 2 pump topical PM #75 grams 11/09/23 thyroid (pork) 300 mg tablet 150 mg (1/2 x 300 mg) PO DAILY #45 11/09/23 (Thor Thyroid) tabs blood sugar diagnostic (OneTouch #150 ea 11/22/23 Verio test strips) blood-glucose meter (JybeTouch #1 ea 11/22/23 Verio Reflect Meter) insulin syringe-needle U-100 1 mL #300 ea 11/22/23 30 gauge x 1/2" (BD Insulin Syringe Ultra-Fine) lancets 33 gauge (OneTouch Delica #150 ea 11/22/23 Plus Lancet) albuterol sulfate 90 mcg/actuation 3 inh inhalation Q6H PRN shortness 11/27/23 aerosol inhaler (Ventolin HFA) of breath or wheezing #6.7 grams glucagon 3 mg/actuation nasal 3 mg intranasal ONCE #2 ea 11/28/23 spray (Baqsimi) Results & Data (ED) Vital Signs Vital Signs - 24 hr 12/02/23 09:30 12/02/23 12:27 12/02/23 12:30 Temperature 36.6 C Temperature Source Temporal Artery Scan Pulse Rate 91 H 81 Pulse Rate [Apical] 81 Respiratory Rate 16 32 H Respiratory Depth Normal Blood Pressure 161/87 H Blood Pressure [Left Arm] 114/74 Blood Pressure Mean 111 Blood Pressure Mean [Left Arm] 87 Pulse Oximetry 95 95 Oxygen Delivery Method Room Air Room Air Sepsis Recent Fever Within 48 Hours No Sepsis New/Unexplained Change in Mental Status N/A Sepsis Action Taken by Nursing No Action Required Home Medications Current Medication List: was personally reviewed by me Laboratory Data Attestation: I reviewed the patient's lab results. 12/02/23 10:35 12/02/23 10:35 Lab Results 12/02/23 12/02/23 12/02/23 Range/Units 10:35 10:45 11:32 WBC 30.38 H* (4.8-10.8) K/ul RBC 4.76 (4.70-6.10) M/uL Hgb 14.0 (14.0-18.0) g/dl Hct 43.0 (42.0-52.0) % MCV 90.3 (80.0-100.0) fL MCH 29.4 (25.0-34.0) pg MCHC 32.6 (32.0-36.0) g/dL RDW Std Deviation 48.0 H (36.4-46.3) fL RDW Coeff of Yanira 14.5 (11.5-14.5) % Plt Count 212 (130-400) K/uL MPV 8.2 L (9.4-12.4) fL Immature Gran % (Auto) 3.4 % Neut % (Auto) 84.6 % Lymph % (Auto) 5.4 % [place] % (Auto) 6.1 % Eos % (Auto) 0.0 % Baso % (Auto) 0.5 % Neut # (Auto) 25.72 H (1.40-6.50) K/uL Lymph # (Auto) 1.63 (1.20-3.40) K/uL [place] # (Auto) 1.86 H (0.11-0.59) K/uL Eos # (Auto) 0.01 (0.00-0.50) K/uL Baso # (Auto) 0.14 (0.00-0.20) K/uL Immature Gran # (Auto) 1.02 H (0.01-0.20) K/uL Polychromasia 1+ VBG pH (7.36-7.41) VBG pCO2 (38-50) mmHg VBG pO2 mmHg VBG HCO3 mmol/L VBG O2 Saturation % VBG Base Excess mEq/L Sodium 140 (136-145) mmol/L Potassium 3.9 (3.5-5.1) mmol/L Chloride 99 (98-107) mmol/L Carbon Dioxide 33 H (21-32) mmol/L Anion Gap 8 (3-11) BUN 23 (6-23) mg/dl Creatinine 1.02 (0.6-1.4) mg/dl Est Cr Clr Drug Dosing Not Reportable Est GFR ( Amer) 95.5 ml/min Est GFR (Non-Af Amer) 82.4 ml/min BUN/Creatinine Ratio 22.5 H (10-20) Glucose 16 L* (70-99(Fasting)) mg/dl POC Glucose 28 L* (70-99) mg/dl Lactate 1.6 (0.4-2.0) mmol/L Calcium 10.3 (8.6-10.3) mg/dl Magnesium 2.0 (1.7-2.4) mg/dl Total Bilirubin 0.7 (0.2-1.0) mg/dl AST 12 L (13-39) U/L ALT 15 (7-52) U/L Alkaline Phosphatase 70 (34-104) U/L Ammonia (18-72) umol/L Troponin I High Sens 19.6 (0-20) pg/ml Total Protein 7.1 (6.0-8.3) gm/dl Albumin 3.9 (3.4-5.0) gm/dl Globulin 3.2 (2.5-4.0) gm/dl Albumin/Globulin Ratio 1.2 (0.9-2) Procalcitonin 0.42 (0-0.5) ng/ml TSH 0.020 L (0.300-4.500) uIu/ml Free T4 1.61 H (0.61-1.60) ng/dl Random Cortisol 27.35 mcg/dl Urine Color Urine Appearance (Clear) Urine pH (4.5-7.5) Ur Specific [place] (1.000-1.030) Urine Protein (Negative) Urine Glucose (UA) (Negative) Urine Ketones (Negative) Urine Blood (Negative) Urine Nitrite (Negative) Urine Bilirubin (Negative) Urine Urobilinogen (Negative) Ur Leukocyte Esterase (Negative) Urine WBC (Auto) (0-5) /hpf Urine RBC (Auto) (0-4) /hpf U Hyaline Cast (Auto) (0-5) /lpf U Epithel Cells (Auto) (0-5) /lpf Urine Bacteria (Auto) (Negative) Valproic Acid (50-100) mcg/ml [place] (0.6-1.2) mmol/L Adenovirus (PCR) (NotDetected) B. pertussis DNA (PCR) (NotDetected) B.parapertussis DNA PCR (NotDetected) C. pneumoniae DNA (PCR) (NotDetected) Coronavirus OC43 (PCR) (NotDetected) Coronavirus HKU1 (PCR) (NotDetected) Coronavirus 229E (PCR) (NotDetected) SARS-CoV-2 (PCR) (NotDetected) Coronavirus NL63 (PCR) (NotDetected) Human Metapneumovir PCR (NotDetected) Influenza Type A (PCR) (NotDetected) Influenza Type B (PCR) (NotDetected) M. pneumoniae (PCR) (NotDetected) Parainfluenza 1 (PCR) (NotDetected) Parainfluenza 2 (PCR) (NotDetected) Parainfluenza 3 (PCR) (NotDetected) Parainfluenza 4 (PCR) (NotDetected) RSV (PCR) (NotDetected) Entero/Rhino (PCR) (NotDetected) 12/02/23 12/02/23 12/02/23 Range/Units 11:42 12:04 12:38 WBC (4.8-10.8) K/ul RBC (4.70-6.10) M/uL Hgb (14.0-18.0) g/dl Hct (42.0-52.0) % MCV (80.0-100.0) fL MCH (25.0-34.0) pg MCHC (32.0-36.0) g/dL RDW Std Deviation (36.4-46.3) fL RDW Coeff of Yanira (11.5-14.5) % Plt Count (130-400) K/uL MPV (9.4-12.4) fL Immature Gran % (Auto) % Neut % (Auto) % Lymph % (Auto) % [place] % (Auto) % Eos % (Auto) % Baso % (Auto) % Neut # (Auto) (1.40-6.50) K/uL Lymph # (Auto) (1.20-3.40) K/uL [place] # (Auto) (0.11-0.59) K/uL Eos # (Auto) (0.00-0.50) K/uL Baso # (Auto) (0.00-0.20) K/uL Immature Gran # (Auto) (0.01-0.20) K/uL Polychromasia VBG pH 7.39 (7.36-7.41) VBG pCO2 65 H (38-50) mmHg VBG pO2 39 mmHg VBG HCO3 39 mmol/L VBG O2 Saturation < 60.0 % VBG Base Excess 11.6 mEq/L Sodium (136-145) mmol/L Potassium (3.5-5.1) mmol/L Chloride (98-107) mmol/L Carbon Dioxide (21-32) mmol/L Anion Gap (3-11) BUN (6-23) mg/dl Creatinine (0.6-1.4) mg/dl Est Cr Clr Drug Dosing Est GFR ( Amer) ml/min Est GFR (Non-Af Amer) ml/min BUN/Creatinine Ratio (10-20) Glucose (70-99(Fasting)) mg/dl POC Glucose 66 L* (70-99) mg/dl Lactate (0.4-2.0) mmol/L Calcium (8.6-10.3) mg/dl Magnesium (1.7-2.4) mg/dl Total Bilirubin (0.2-1.0) mg/dl AST (13-39) U/L ALT (7-52) U/L Alkaline Phosphatase (34-104) U/L Ammonia 23.0 (18-72) umol/L Troponin I High Sens (0-20) pg/ml Total Protein (6.0-8.3) gm/dl Albumin (3.4-5.0) gm/dl Globulin (2.5-4.0) gm/dl Albumin/Globulin Ratio (0.9-2) Procalcitonin (0-0.5) ng/ml TSH (0.300-4.500) uIu/ml Free T4 (0.61-1.60) ng/dl Random Cortisol mcg/dl Urine Color Urine Appearance (Clear) Urine pH (4.5-7.5) Ur Specific [place] (1.000-1.030) Urine Protein (Negative) Urine Glucose (UA) (Negative) Urine Ketones (Negative) Urine Blood (Negative) Urine Nitrite (Negative) Urine Bilirubin (Negative) Urine Urobilinogen (Negative) Ur Leukocyte Esterase (Negative) Urine WBC (Auto) (0-5) /hpf Urine RBC (Auto) (0-4) /hpf U Hyaline Cast (Auto) (0-5) /lpf U Epithel Cells (Auto) (0-5) /lpf Urine Bacteria (Auto) (Negative) Valproic Acid 98 (50-100) mcg/ml [place] < 0.1 L (0.6-1.2) mmol/L Adenovirus (PCR) (NotDetected) B. pertussis DNA (PCR) (NotDetected) B.parapertussis DNA PCR (NotDetected) C. pneumoniae DNA (PCR) (NotDetected) Coronavirus OC43 (PCR) (NotDetected) Coronavirus HKU1 (PCR) (NotDetected) Coronavirus 229E (PCR) (NotDetected) SARS-CoV-2 (PCR) (NotDetected) Coronavirus NL63 (PCR) (NotDetected) Human Metapneumovir PCR (NotDetected) Influenza Type A (PCR) (NotDetected) Influenza Type B (PCR) (NotDetected) M. pneumoniae (PCR) (NotDetected) Parainfluenza 1 (PCR) (NotDetected) Parainfluenza 2 (PCR) (NotDetected) Parainfluenza 3 (PCR) (NotDetected) Parainfluenza 4 (PCR) (NotDetected) RSV (PCR) (NotDetected) Entero/Rhino (PCR) (NotDetected) 12/02/23 12/02/23 12/02/23 Range/Units 13:02 13:47 Unknown WBC (4.8-10.8) K/ul RBC (4.70-6.10) M/uL Hgb (14.0-18.0) g/dl Hct (42.0-52.0) % MCV (80.0-100.0) fL MCH (25.0-34.0) pg MCHC (32.0-36.0) g/dL RDW Std Deviation (36.4-46.3) fL RDW Coeff of Yanira (11.5-14.5) % Plt Count (130-400) K/uL MPV (9.4-12.4) fL Immature Gran % (Auto) % Neut % (Auto) % Lymph % (Auto) % [place] % (Auto) % Eos % (Auto) % Baso % (Auto) % Neut # (Auto) (1.40-6.50) K/uL Lymph # (Auto) (1.20-3.40) K/uL [place] # (Auto) (0.11-0.59) K/uL Eos # (Auto) (0.00-0.50) K/uL Baso # (Auto) (0.00-0.20) K/uL Immature Gran # (Auto) (0.01-0.20) K/uL Polychromasia VBG pH (7.36-7.41) VBG pCO2 (38-50) mmHg VBG pO2 mmHg VBG HCO3 mmol/L VBG O2 Saturation % VBG Base Excess mEq/L Sodium (136-145) mmol/L Potassium (3.5-5.1) mmol/L Chloride (98-107) mmol/L Carbon Dioxide (21-32) mmol/L Anion Gap (3-11) BUN (6-23) mg/dl Creatinine (0.6-1.4) mg/dl Est Cr Clr Drug Dosing Est GFR ( Amer) ml/min Est GFR (Non-Af Amer) ml/min BUN/Creatinine Ratio (10-20) Glucose (70-99(Fasting)) mg/dl POC Glucose 81 (70-99) mg/dl Lactate (0.4-2.0) mmol/L Calcium (8.6-10.3) mg/dl Magnesium (1.7-2.4) mg/dl Total Bilirubin (0.2-1.0) mg/dl AST (13-39) U/L ALT (7-52) U/L Alkaline Phosphatase (34-104) U/L Ammonia (18-72) umol/L Troponin I High Sens (0-20) pg/ml Total Protein (6.0-8.3) gm/dl Albumin (3.4-5.0) gm/dl Globulin (2.5-4.0) gm/dl Albumin/Globulin Ratio (0.9-2) Procalcitonin (0-0.5) ng/ml TSH (0.300-4.500) uIu/ml Free T4 (0.61-1.60) ng/dl Random Cortisol mcg/dl Urine Color Yellow Urine Appearance Clear (Clear) Urine pH 6.0 (4.5-7.5) Ur Specific [place] 1.019 (1.000-1.030) Urine Protein Trace H (Negative) Urine Glucose (UA) Trace H (Negative) Urine Ketones Negative (Negative) Urine Blood 1+ H (Negative) Urine Nitrite Negative (Negative) Urine Bilirubin Negative (Negative) Urine Urobilinogen Positive H (Negative) Ur Leukocyte Esterase Negative (Negative) Urine WBC (Auto) 1-5 (0-5) /hpf Urine RBC (Auto) 5-10 H (0-4) /hpf U Hyaline Cast (Auto) 1-5 (0-5) /lpf U Epithel Cells (Auto) 5-10 H (0-5) /lpf Urine Bacteria (Auto) Negative (Negative) Valproic Acid (50-100) mcg/ml [place] (0.6-1.2) mmol/L Adenovirus (PCR) Not Detected (NotDetected) B. pertussis DNA (PCR) Not Detected (NotDetected) B.parapertussis DNA PCR Not Detected (NotDetected) C. pneumoniae DNA (PCR) Not Detected (NotDetected) Coronavirus OC43 (PCR) Not Detected (NotDetected) Coronavirus HKU1 (PCR) Not Detected (NotDetected) Coronavirus 229E (PCR) Not Detected (NotDetected) SARS-CoV-2 (PCR) Not Detected (NotDetected) Coronavirus NL63 (PCR) Not Detected (NotDetected) Human Metapneumovir PCR Not Detected (NotDetected) Influenza Type A (PCR) Not Detected (NotDetected) Influenza Type B (PCR) Not Detected (NotDetected) M. pneumoniae (PCR) Not Detected (NotDetected) Parainfluenza 1 (PCR) Not Detected (NotDetected) Parainfluenza 2 (PCR) Not Detected (NotDetected) Parainfluenza 3 (PCR) Not Detected (NotDetected) Parainfluenza 4 (PCR) Not Detected (NotDetected) RSV (PCR) Not Detected (NotDetected) Entero/Rhino (PCR) DETECTED A* (NotDetected) Administered Medications Dextrose (D10w) 1,000 mls @ 100 mls/hr IV .Q10H OBDULIO Stop: 01/01/24 12:14 Last Admin: 12/02/23 13:03 Dose: 100 mls/hr Documented By: MAY Discontinued Medications Avendano Syrup (Avendano Syrup 5 Ml Udp) 5 ml PO ONE STA Stop: 12/02/23 13:32 Last Admin: 12/02/23 15:44 Dose: 5 ml Documented By: MAY Dextrose (Dextrose 50% 50 Ml Syringe) 50 ml IV NOW STA Stop: 12/02/23 11:34 Last Admin: 12/02/23 11:40 Dose: 50 ml Documented By: MAY Dextrose (Dextrose 50% 50 Ml Syringe) 50 ml IV NOW STA Stop: 12/02/23 11:56 Last Admin: 12/02/23 12:11 Dose: 50 ml Documented By: MAY Gadobutrol (Gadobutrol 65ml Vial) 11.4 ml IV ONCE ONE Stop: 12/02/23 14:54 Last Admin: 12/02/23 14:55 Dose: 11.4 ml Documented By: RADHA Hydrocortisone Sodium Succinate (Hydrocortisone Sod Succinate 100 Mg/2 Ml Vial) 100 mg IV NOW STA Stop: 12/02/23 13:18 Last Admin: 12/02/23 13:42 Dose: 100 mg Documented By: MAY Sodium Chloride (Nss) 1,000 mls @ 999 mls/hr IV .Q1H1M OBDULIO Stop: 12/02/23 11:30 Last Infusion: 12/02/23 14:28 Dose: Infused Documented By: Admin: 12/02/23 11:04 Dose: 999 mls/hr Documented By: MAY Cefepime HCl (Maxipime) 2,000 mg in 20 mls @ 5 mls/min IV NOW STA; Protocol Stop: 12/02/23 12:28 Last Admin: 12/02/23 13:40 Dose: 5 mls/min Documented By: MAY Vancomycin HCl 2,250 mg/ (Sodium Chloride) 545 mls @ 200 mls/hr IV NOW STA Stop: 12/02/23 15:16 Last Admin: 12/02/23 15:46 Dose: 200 mls/hr Documented By: MAY Vancomycin HCl (Vancomycin Hcl 125 Mg/2.5ml Soln) 125 mg PO ONE STA Stop: 12/02/23 13:32 Last Admin: 12/02/23 15:44 Dose: 125 mg Documented By: MAY Imaging Data Radiologist's Impression: Chest X-Ray 12/02/23 10:25 XR chest 1V portable HISTORY: weakness COMPARISON: Chest 11/27/2023. FINDINGS: No pneumothorax. No pleural effusions. There are low lung volumes. The heart is mildly enlarged. There is perihilar interstitial/vascular thickening which has progressed suggestive of mild congestive change. Old, healed left clavicle fracture again noted. No acute fractures identified. Bibasilar densities favor atelectasis. IMPRESSION: Cardiomegaly with mild congestive change. ACT 112: Negative or not required by law. Electronically signed by: Orlando Garcia M.D. 12/02/2023 10:[address] 12/02/23 10:[address] DOSE: 1094.1 mGy.cm HISTORY: Altered mental status. TECHNIQUE: Multiaxial CT images of the head were performed without the use of intravenous contrast. Automated exposure control was utilized for this study. A dose lowering technique was utilized adhering to the principles of ALARA. Comparison: Head CT 09/28/2023. Findings: Opacified right maxillary sinus. The fluid level within the sphenoid sinus. The mastoid air cells are clear. Mild motion artifact. 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 This remains unchanged and is of doubtful clinical significance. The calvarium and skull base are intact. The ventricles and sulci are within normal limits. There is no mass, hematoma, midline shift, or acute infarct. Impression: No significant change compared to the prior study. No acute intracranial abnormality. ACT 112: Negative or not required by law. Electronically signed by: Orlando Garcia M.D. 12/02/2023 1:10 PM Lumbar Spine MRI 12/02/23 11:52 MRI OF THE LUMBAR SPINE WITH AND WITHOUT CONTRAST CLINICAL HISTORY: lumbar abscess, WBC 30 w worsen pain COMPARISON STUDY: Lumbar spine MRI October 04, 2022. Lumbar spine CT June 04, 2023. TECHNIQUE: Utilizing a 1.5 Francine magnet and dedicated coil, multiplanar, multiecho imaging of the lumbar spine was performed before and after uneventful IV administration of 11.4 mL of Gadavist. FINDINGS: For purposes of numbering on this exam, the L5-S1 disc space is assigned to axial image 27 of 33. Slight anterolisthesis of L5 on S1 is unchanged. There are stable postoperative findings consistent with L5-S1 posterior decompression, fusion and discectomy. Increased T2 signal within the operative bed represents postsurgical change. No operative bed fluid collection is present. There is no epidural fluid collection. No evidence for discitis or osteomyelitis. Vertebral body heights are maintained. Note is made of moderate increased T2 signal and diminished T1 signal within the spinous processes of L2, L3 and L4. This is new since previous MRI. L1-2: The central canal and neural foramen are patent. L2-3: The central canal and neural foramen are patent. L3-4: The central canal and neural foramen are patent. There is mild disc bulge and facet arthrosis. L4-5: There is moderate facet arthrosis. The central canal and neural foramen are patent. L5-S1: Stable postoperative findings are noted. There is no recurrent central canal stenosis. There is no significant neural foraminal stenosis. IMPRESSION: 1. Stable postoperative findings following L5-S1 posterior decompression, discectomy and fusion. Operative bed increased T2 signal represents expected postsurgical change. 2. No fluid collections within the lumbar spine. No evidence for an acute infectious process within the lumbar spine by MRI. 3. T2 hyperintensity within the spinous processes of L2, L3 and L4. The MRI appearance is nonspecific but could reflect acute to subacute fractures or bone contusions. ACT 112: Negative or not required by law. Electronically signed by: Aditya Foley M.D. 12/02/2023 3:30 PM Abdomen/Pelvis CT 12/02/23 13:25 CT OF THE ABDOMEN AND PELVIS WITHOUT CONTRAST CLINICAL HISTORY: left CVA tenderness, sepsis COMPARISON STUDY: CT of the abdomen and pelvis May 25, 2023. TECHNIQUE: Axial images of the abdomen and pelvis were obtained without IV contrast. Images were reviewed in the axial, sagittal, and coronal planes. Automated exposure control was utilized for the study. A dose lowering technique was utilized adhering to the principles of ALARA. FINDINGS: There are trace bilateral pleural effusions. No acute fractures are identified within the visualized lower ribs. No hydronephrosis is present. Sensitivity for detection of urinary calculi is diminished given excreted contrast from recent contrast-enhanced MRI. No pneumatosis, free air or portal venous gas is present. Evaluation of the abdomen and pelvis is suboptimal on this unenhanced exam. Liver, spleen, adrenal glands and pancreas are unremarkable. There is no evidence for a bowel obstruction. The appendix is normal. No fluid collections are present. There is no lymphadenopathy. No acute fractures are identified. Postoperative findings consistent with L5-S1 discectomy, decompression and fusion are present. IMPRESSION: 1. No acute process within the abdomen or pelvis on unenhanced exam. 2. No hydronephrosis. Decreased sensitivity for detection of urinary calculi given excreted MR contrast. However, no definite calculi. ACT 112: Negative or not required by law. Electronically signed by: Aditya Foley M.D. 12/02/2023 3:43 PM Discharge Plan Visit Data Chief Complaint: Illness Stated Complaint: ILLNESS ED Provider: Rebeka Antoine Discharge Problem: Hypoglycemia, Leukocytosis, Hypertension Forms Stand Alone Forms: My [facility] [employer] Prescriptions Prescriptions: No Action lithium carbonate 300 mg tablet 300 mg PO AMHS trazodone 100 mg tablet 100 mg PO HS alfuzosin 10 mg tablet extended release 24 hr 10 mg PO QAM Qty: 90 3RF Rx Instructions: TAKE THIS MED AFTER A MEAL Botox 200 unit recon soln See Rx Instructions IM .COMPLEX Qty: 1 3RF Rx Instructions: 155 UNITS IM IN THE FACE AND NECK MUSCLES EVERY 12 WEEKS PER MIGRAINE PROTOCOL fluticasone propionate [Flonase Allergy Relief] 50 mcg/actuation spray,suspension 1 spray intranasal HS PRN (Reason: allergy symptoms) Qty: 16 0RF Rx Instructions: administer into each nostril Wegovy 0.5 mg/0.5 mL pen injector 0.5 mg subcut Q7D Qty: 2 3RF Hold Instructions: Per patient has been on hold for a few weeks Patient Comments: takes on Sundays > last dose 09/18/23 Rx Instructions: Currently out of stock cholecalciferol (vitamin D3) 50 mcg (2,000 unit) capsule 50 mcg PO QPM Qty: 90 1RF potassium chloride 20 mEq tablet extended release 20 meq PO QAM Qty: 90 1RF Rx Instructions: to take with furosemide dutasteride [Avodart] 0.5 mg capsule 0.5 mg PO QAM Qty: 90 1RF furosemide 20 mg tablet 20 mg PO QAM Qty: 30 1RF desmopressin [DDAVP] 0.1 mg tablet 0.4 mg PO BID Qty: 240 1RF hydrocortisone 10 mg tablet See Rx Instructions PO BID Qty: 135 1RF Rx Instructions: TAKE 20mg IN THE AM AND 10mg IN THE PM. MAY DOUBLE THE DOSE IN TIMES OF STRESS. (DME) insulin syringe-needle U-100 [BD Insulin Syringe Ultra-Fine] 1 mL 30 gauge x 1/2" syringe See Rx Instructions .Route Qty: 300 1RF Rx Instructions: use tid (DME) OneTouch Verio test strips Strip See Rx Instructions .MEDSUPPLY Qty: 150 5RF Rx Instructions: check blood sugars 4 times a day (DME) blood-glucose meter [OneTouch Verio Reflect Meter] Misc See Rx Instructions miscellaneous .MEDSUPPLY Qty: 1 0RF Rx Instructions: As directed (DME) lancets [OneTouch Delica Plus Lancet] 33 gauge misc See Rx Instructions .MEDSUPPLY Qty: 150 5RF Rx Instructions: As directed check blood sugars 4 times a day cyclobenzaprine 10 mg tablet 10 mg PO BID PRN (Reason: muscle spasm) 30 Days Qty: 60 1RF (DME) FreeStyle Rosalie 2 Sensor Kit See Rx Instructions .Route Qty: 6 3RF Rx Instructions: Change every 14 days hydrocodone-acetaminophen 10-325 mg tablet 1 tab PO Q6H PRN (Reason: Pain) ferrous sulfate 325 mg (65 mg iron) tablet 325 mg PO Q OTHER DAY Qty: 45 3RF Rx Instructions: every other day (DME) FreeStyle Rosalie 2 [place] Misc See Rx Instructions .Route Qty: 1 0RF Rx Instructions: Check blood glucose before each meal propranolol 60 mg capsule,extended release 24 hr 60 mg PO DAILY Qty: 30 6RF Thor Thyroid 300 mg tablet 150 mg PO DAILY Qty: 45 3RF testosterone 20.25 mg/1.25 gram (1.62 %) gel in metered-dose pump 2 pump TOP PM Qty: 75 5RF Rx Instructions: apply 1 pump amount over max area of EACH upper arm and shoulder PDMP Queried ok to fill 03/17/2023 DS Baqsimi 3 mg/actuation spray,non-aerosol 3 mg intranasal ONCE Qty: 2 5RF Rx Instructions: for treatment of severe hypoglycemia, second dose may be given if patient does not respond after 15 minutes . Per caregiver, pt has never has to use this medication. (DME) OneTouch Verio test strips Strip See Rx Instructions .Route Rx Instructions: Test blood sugar two times daily Rexulti 3 mg tablet 3 mg PO QAM duloxetine 30 mg capsule,delayed release(DR/EC) 30 mg PO HS mirtazapine [Remeron] 30 mg tablet 30 mg PO HS celecoxib 200 mg capsule 200 mg PO DAILY PRN (Reason: Pain) metformin 1,000 mg tablet 0 mg PO BID Hold Instructions: Per Dr Voss to hold as of 11/23/22 Rx Instructions: Per Dr Voss: to hold as of 11/23/22: Original directions: 1000mg by mouth twice daily ibuprofen [Advil] 200 mg tablet 400 mg PO Q6H PRN (Reason: Pain) Nurtec ODT 75 mg tablet,disintegrating 75 mg PO DAILY PRN (Reason: Migraine Headache) Qty: 8 6RF divalproex 500 mg tablet,delayed release (DR/EC) 1,000 mg PO BID 30 Days Qty: 120 6RF lacosamide 150 mg tablet 150 mg PO BID Qty: 60 5RF prazosin [Minipress] 5 mg capsule 5 mg PO HS duloxetine 60 mg capsule,delayed release(DR/EC) 60 mg PO QAM insulin glargine [Lantus Solostar U-100 Insulin] 100 unit/mL (3 mL) Insulin Pen 0 unit SUBCUT PM Hold Instructions: Has been on hold for a few weeks per pt Rx Instructions: Has been on hold for a few weeks per pt's fianc' due to patient's blood glucose levels being low. Original directions: 12units once in the evening lisinopril 5 mg tablet 5 mg PO QAM oxybutynin chloride 5 mg tablet extended release 24hr 5 mg PO QAM somatropin 12 mg/mL (36 unit/mL) cartridge 0 mg subcut DAILY Rx Instructions: Unable to verify medication with patient/caregiver: Original directions: 0.3mg sq daily: dispose of cartridge after 21 days. levothyroxine 200 mcg tablet 0 mcg PO QAM Rx Instructions: Home medication placed on hold at Doctor's office: Original directions: 200mcg by mouth qam Norditropin FlexPro 5 mg/1.5 mL (3.3 mg/mL) pen injector 0 mg SQ PM Rx Instructions: Unable to verify medication with patient/caregiver: Original directions: 0.3mg sq pm acetaminophen 325 mg Tablet 650 mg PO Q6H PRN (Reason: pain) Qty: 30 0RF oxybutynin chloride 5 mg tablet 5 mg PO Q8H PRN (Reason: bladder spasms) Qty: 20 0RF docusate sodium [Colace] 100 mg capsule 100 mg PO BID PRN (Reason: Constipation) Rx Instructions: Take twice daily for 2 weeks, then as needed for constipation. rosuvastatin 20 mg tablet 20 mg PO QAM lorazepam 0.5 mg Tablet 0.5 mg PO DAILY PRN (Reason: Seizure Activity) pantoprazole 40 mg tablet,delayed release (DR/EC) 40 mg PO BID Qty: 60 5RF albuterol sulfate [Ventolin HFA] 90 mcg/actuation HFA aerosol inhaler 3 inh inhalation Q6H PRN (Reason: shortness of breath or wheezing) Qty: 6.7 0RF Referrals Referrals: ProLarry MD [Primary Care Provider] - Discharge Problem: Leukocytosis Qualifiers: Leukocytosis type: unspecified Qualified Code(s): D72.829 - Elevated white blood cell count, unspecified Hypertension Qualifiers: Hypertension type: primary hypertension Qualified Code(s): I10 - Essential (primary) hypertension
[2023-12-02 11:30] LABS: Mean Corpuscular Hemoglobin 29.4 pg (25.0-34.0); Mean Corpuscular Hgb Conc 32.6 g/dL (32.0-36.0); Mean Corpuscular Volume 90.3 fL (80.0-100.0); Mean Platelet Volume 8.2 fL (9.4-12.4); Platelet Count 212 K/uL (130-400); RDW Coefficient of Variation 14.5 % (11.5-14.5); Red Blood Count 4.76 M/uL (4.70-6.10); White Blood Count 30.38 K/ul (4.8-10.8)
[2023-12-02] MEDS ORDERED: DEXTROSE 50% 50 ML SYRINGE IV STA ×2 (11:33→11:55)
[2023-12-02 11:46] LABS: Alanine Aminotransferase 15 U/L (7-52); Albumin Globulin Ratio 1.2 (0.9-2); Albumin Level 3.9 gm/dl (3.4-5.0); Alkaline Phosphatase 70 U/L (34-104); Anion Gap 8 (3-11); Aspartate Aminotransferase 12 U/L (13-39); BUN Creatinine Ratio 22.5 (10-20); Bilirubin,Total 0.7 mg/dl (0.2-1.0); Blood Urea Nitrogen 23 mg/dl (6-23); Calcium 10.3 mg/dl (8.6-10.3); Carbon Dioxide 33 mmol/L (21-32); Chloride 99 mmol/L (98-107); Est GFR (African American) 95.5 ml/min; Est GFR (Non-African American) 82.4 ml/min; Globulin 3.2 gm/dl (2.5-4.0); Glucose 16 mg/dl (70-99(Fasting)); Potassium 3.9 mmol/L (3.5-5.1); Sodium 140 mmol/L (136-145); Total Protein 7.1 gm/dl (6.0-8.3); Troponin I High Sensitivity 19.6 pg/ml (0-20)
[2023-12-02 11:49] LABS: Basophils # (auto) 0.14 K/uL (0.00-0.20); Basophils % (auto) 0.5 %; Eosinophils # (auto) 0.01 K/uL (0.00-0.50); Immature Granulocytes # (auto) 1.02 K/uL (0.01-0.20); Immature Granulocytes % (auto) 3.4 %; Lymphocytes # (auto) 1.63 K/uL (1.20-3.40); Lymphocytes % (auto) 5.4 %; Monocytes # (auto) 1.86 K/uL (0.11-0.59); Monocytes % (auto) 6.1 %; Neutrophils # (auto) 25.72 K/uL (1.40-6.50); Neutrophils % (auto) 84.6 %; Polychromasia 1+
[2023-12-02] MEDS ORDERED: DEXTRAN 10% / D5W 500 ML IV PRN (11:56)
--- NOTE | 2023-12-02 11:57 | Electrocardiogram Report ---
Test Reason : Blood Pressure : / mmHG Vent. Rate : 090 BPM Atrial Rate : 090 BPM P-R Int : 140 ms QRS Dur : 090 ms QT Int : 350 ms P-R-T Axes : 071 -08 042 degrees QTc Int : 428 ms Normal sinus rhythm Normal ECG When compared with ECG of 27-NOV-2023 12:00, No significant change was found Confirmed by Garfield Marx ([id number]) on 12/02/2023 11:56:57 AM Referred By: Confirmed By:Garfield Marx
[2023-12-02] MEDS ORDERED: D5W AND NSS 1,000 ML IV SCH (12:00)
[2023-12-02] MEDS ORDERED: DEXTROSE 10% 1,000 ML IV SCH (12:15)
[2023-12-02] MEDS ORDERED: DEXTROSE 50% 50 ML SYRINGE IV PRN ×2 (12:22→16:26)
[2023-12-02] MEDS ORDERED: GLUCOSE 10 TAB/TUBE PO PRN ×2 (12:22→16:26)
[2023-12-02] MEDS ORDERED: CARBOHYDRATES FOR HYPOGLYCEMIA PO PRN ×2 (12:22→16:26)
[2023-12-02] MEDS ORDERED: GLUCOSE 40% GEL 15 GM TUBE PO PRN ×2 (12:22→16:26)
[2023-12-02] MEDS ORDERED: GLUCAGON FOR INJ 1 MG VIAL SQ PRN ×2 (12:22→16:26)
[2023-12-02] MEDS ORDERED: VANCOMYCIN HCL IV ONE (12:25)
[2023-12-02] MEDS ORDERED: SODIUM CHLORIDE 0.9% IV ONE (12:25)
[2023-12-02] MEDS ORDERED: VANCOMYCIN CONSULT ACTIVE PRN (12:25)
[2023-12-02] MEDS ORDERED: CEFEPIME 2,000 MG/20 ML VIAL IV STA (12:25)
[2023-12-02] MEDS ORDERED: VANCOMYCIN HCL 2,250 MG in SODIUM CHLORIDE 0.9% 500 ML IV STA (12:33)
[2023-12-02 12:36] LABS: Base Excess VBG 11.6 mEq/L; HCO3 VBG 39 mmol/L; Oxygen Saturation VBG < 60.0 %; PCO2 VBG 65 mmHg (38-50); PO2 VBG 39 mmHg; pH VBG 7.39 (7.36-7.41)
[2023-12-02 12:39] LABS: T4 Free Thyroxine 1.61 ng/dl (0.61-1.60)
[2023-12-02 13:11] LABS: Adenovirus PCR Not Detected (NotDetected); Bordetella parapertussis PCR Not Detected (NotDetected); Bordetella pertussis PCR Not Detected (NotDetected); Chlamydia pneumoniae PCR Not Detected (NotDetected); Coronavirus 229E PCR Not Detected (NotDetected); Coronavirus CoV-2 (COVID19)PCR Not Detected (NotDetected); Coronavirus HKU1 PCR Not Detected (NotDetected); Coronavirus NL63 PCR Not Detected (NotDetected); Coronavirus OC43PCR Not Detected (NotDetected); Human Metapneumovirus PCR Not Detected (NotDetected); Influenza A PCR Not Detected (NotDetected); Influenza B PCR Not Detected (NotDetected); Mycoplasma pneumoniae PCR Not Detected (NotDetected); Parainfluenza Virus 1 PCR Not Detected (NotDetected); Parainfluenza Virus 2 PCR Not Detected (NotDetected); Parainfluenza Virus 3 PCR Not Detected (NotDetected); Parainfluenza Virus 4 PCR Not Detected (NotDetected); Respiratory Syncytial VirusPCR Not Detected (NotDetected)
--- NOTE | 2023-12-02 13:13 | CT Scan Report ---
HEAD CT NONCONTRAST CT DOSE: 1094.1 mGy.cm HISTORY: Altered mental status. TECHNIQUE: Multiaxial CT images of the head were performed without the use of intravenous contrast. A utomated exposure control was utilized for this study. A dose lowering technique was utilized adheri ng to the principles of ALARA. Comparison: Head CT 09/28/2023. Findings: Opacified right maxillary sinus. The fluid level within the sphenoid sinus. The mastoid air cells are clear. Mild motion artifact. 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 This remains unchanged and is of doubtful clinical significance. The calvarium and skull base are intact. The ventricles and sulci are within normal limits. There is no mass, hematoma, midli ne shift, or acute infarct. Impression: No significant change compared to the prior study. No acute intracranial abnormality. ACT 112: Negative or not required by law. Electronically signed by: Orlando Garcia M.D. 12/02/2023 1:10 PM
[2023-12-02] MEDS ORDERED: HYDROCORTISONE SOD SUCCINATE 100 MG/2 ML VIAL IV STA ×2 (13:17)
[2023-12-02 13:25] LABS: Rhinovirus/Enterovirus PCR DETECTED (NotDetected)
--- NOTE | 2023-12-02 13:26 | History & Physical Report ---
Date of Service December 02, 2023 Assessment & Plan (1) Sepsis: Plan: -Admit to the PCU on tele and pulse oximetry -Currently hemodynamically stable and stable on RA -Presented to the ED from his PCP's office for ongoing respiratory symptoms, uncontrolled back pain, and possible syncope last night -Noted to have a leukocytosis of 30 with neutrophile predominance of 25, monocyte count of 1.86, with increased immature granulocyte count of 1.02 -Chest xray and UA are negative for signs of infection -MRI of the lumbar spine and CT of the abd/pelvis wo con were negative for acute signs of infection. -At this time the only source we have not ruled out is his multiple episoes of diarrhea over the past 4-5 days -Gave one dose of PO Vancomycin on admission, will hold further dosing until stool studies are back -Lactate and procal are WNL, CRP is in process -Blood cultures have been obtained -Will continue empiric Cefepime and IV vancomycin for now as he is immunocompromised -If he remains stable and the rest of his infectious workup is negative can discontinued abx -SQ lovenox for DVT PPX -HH/DMII diet with 2gm sodium restriction -AM CBC, CMP, mag (2) Hypoglycemia: Plan: -Patient was noted to be hypoglycemic at 16 on arrival to the ED -Has been an ongoing issue since 11/15 and was being followed by Dr. Voss outpatient -Has been holding his lantus and metformin since his last Endocrinology appointment on 11/28; patient confirms that he has not been taking insulin and says he believes his fiance has been removing the metformin from his pill packets each day -We ordered C-peptide and random insulin as recommended in Dr. Voss's last clinic note -Could possibly be due to significant adrenal insufficiency due to his acute illness and need for stress dosed steroids -Will consult Endocrinology to follow while admitted -Will hold dextrose drip for now as glucose is currently 200 -Monitor BSG q2h for now, goal is 110-140 >Will try and stick to the normal hypoglycemia protocol but if he becomes persistently hypoglycemic again will restart the dextrose drip (3) Syncope and collapse: Plan: -Patient experienced another syncopal episode last night while walking into his kitchen -States he felt weak but denies any other symptoms prior to his fall -Denies seizure like activity, did not check his glucose after the event -Has a long hx of previous syncopal episodes -Will interrogate his loop recorder that was placed after his previous episodes of syncopy -Last echo with LVEF WNL as of january 2023, will obtain repeat tomorrow -Syncope could have been due to hypoglycemic event -Ct of the head/brain today negative for acute changes compared to previous -MRI of the lumbar spine and CT of the abd/pelvis are negative for signs of acute trauma -Patient denies new neurologic symptoms, states his chronic back pain has been exacerbated due to his cough and his fall into their granite table last night -Likely due to musculoskeletal pain on top of his chronic back pain -Will continue his home pain regimen with prn tylenol-hydrocodone and Flexiril -Lidocaine patch and heat as well -Fall precautions ordered (4) Secondary adrenal insufficiency: Plan: -On chronic 10 mg Hydrocortisone daily outpatient -Recently started on additional 10 mg PO prednisone daily x 6 days due to his respiratory symptoms and being found to be Rhinovirus + during his ED visit on 11/27/23 -Random cortisol ordered on admission is in process -Gave 100 mg IV Hydrocortisone at the time of admission, will continue 50 mg IV q6h for now -Hold oral hydrocortisone while on IV steroids (5) Rhinovirus: Plan: -Patient tested positive for rhinovirus during his ED visit on 11/27/23 -Currently stable on RA with CXR negative for focal consolidations -Continue supportive care with incentive spirometry, flutter therapy, prn albuterol -PRN Guaifenesin with codeine for his cough -PRN Narcan for oversedation (6) Panhypopituitarism: Plan: -Continue stress dosed steroids -Continue Desmopressin -Continue Topical testosterone -Continue pork thyroid tablets (7) Recurrent seizures: Plan: -Continue BID Depakote and Lacosamide -Valproic acid level obtained in the ED today was WNL -Seizure precautions -PRN IV ativan q5m for seizure activity -Patient is prescribed HS trazodone, would recommend a taper off with his history of recurrent seizures (8) Obstructive sleep apnea: Plan: -HS CPAP/Bipap ordered (9) Bipolar disorder: Plan: -Continue Lacosamide, duloxetine, Prazosin, HS Mirtazapine -After further discussions with the patient's fiance and review of his external med rec, the patient is no longer on lithium (10) BPH with obstruction/lower urinary tract symptoms: Plan: -Will bladder scan for signs of urinary retention with his increased urinary symptoms -Continue Plan The patient was discussed with Dr. Carney at the time of the admission History of Present Illness Chief Complaint: Illness, fever, cough, syncope, Primary Care Provider: Larry Amaral MD Anders is a 53-year-old male with PMH of T2DM, bipolar disorder on lithium , syncope, MR, migraine, pseudoseizures, hx of multiple pituitary tumors with pituitary apoplexy, S/P multiple pituitary surgeries and radiation therapy at [facility], pituitary DI/hypogonadism/hypothyroidism on chronic hydrocortisone therapy, anxiety, depression, and BPH who presented to the [facility] ED on 12/02/23 with complaints on ongoing illness with cough, fevers, SOB for the past 3 weeks with an episode of syncope at home last night. On arrival to the ED he was noted to he initially hypertensive at 161/87, tachycardic at 118, and otherwise stable. Labs were significant for a leukocytosis of 30 with neutrophil predominance of 25, VBG pH of 7.39 with pCO2 of 65, and pO2 of 39, initial glucose of 16, bicarb of 33, lactate WNL, TSH of 0.020 with free T4 of 1.61, lithium level < 0.1, and full respiratory biorfire positive for rhinovirus. CT of the head was negative for acute findings. Chest xray was read as "Cardiomegaly with mild congestive change.". The patient was intially given 1L NSS, a dose of cefepime and vancomycin, and started on a dextrose drip with his persistent hypoglycemia. MRI of the lumbar spine w/wo con was ordered by the ED but will not be able to be obtained for another 3 hours after discussions with MRI. At the time of the exam the patient was sitting in bed in acute distress due to back pain, history was obtained from the patient and his fiance who is sitting bedside. They state that the patient has been dealing with respiratory symptoms including non-productive cough, SOB, and congestion over the past 3 weeks. He is followed by [facility] endocrinology for his panhypopituitarism and DMII. He was recently see in the office by Dr. Voss for persistent hypoglycemia since 11/15. His fiance states that his metformin and lantus has been on hold since the clinic visit on 11/28/23. He has been experiencing dysuria and increased difficulty voiding over the past 3-4 days. Over this time he has also developed fevers, chills, diaphoresis, and significant back pain at the site of his previous lumbar spine surgery. When asked, he states that he has been having multiple episodes of diarrhea over the past 72 hours. He and his fiance confirm that he has been taking his other medications as prescribed including his hydrocortisone. He completed a 6 day course of prednisone taper starting on 11/27 after he was seen in the [facility] ED for his respiratory symptoms. We discussed code status, he clearly states that he wishes to be a DNR/DNI, he would want his fiance to make medical decisions for him if he cannot make them himself. MRI of the lumbar spine w/wo con and CT of the abd/pelvis wo con were obtained prior to admission. MRI of the lumbar w/wo con was read as "1. Stable postoperative findings following L5-S1 posterior decompression, discectomy and fusion. Operative bed increased T2 signal represents expected postsurgical change. 2. No fluid collections within the lumbar spine. No evidence for an acute infectious process within the lumbar spine by MRI. 3. T2 hyperintensity within the spinous processes of L2, L3 and L4. The MRI appearance is nonspecific but could reflect acute to subacute fractures or bone contusions. Ct of the abd/pelvis wo con was read as "1. No acute process within the abdomen or pelvis on unenhanced exam. 2. No hydronephrosis. Decreased sensitivity for detection of urinary calculi given excreted MR contrast. However, no definite calculi.". Upon further discussions with the patient after his glucose was stable, he states that he had a syncopal episode last night while walking to the kitchen. He states that he felt weak prior to the episode but denies chest pain, dizziness/lightheadedness/vision changes, or other neurologic symptoms prior to the event. He thinks he was out for 1-2 minutes and states that he did not check his glucose after the event. His fiance did not report seeing seizure-like activity after he fell. He states that he fell backwards when he had the episode of syncope and fell backwards into their granite table landing on his back and posterior head. He states that prior to his fall he was having increased chronic back pain from all his recent coughing. After the fall the pain was even worse but he denies new neurologic symptoms. Please refer to Dr. Carney's attestation for any changes to the treatment plan Allergies Allergy/AdvReac Type Severity Reaction Status Date / Time clindamycin Allergy Intermediate SWELLING Verified 12/02/23 08:45 Iodinated Contrast Media Allergy Intermediate face/eye Verified 12/02/23 08:45 swelling Quinolones Allergy Intermediate HIVES Verified 12/02/23 08:45 Home Medications Medication Instructions Recorded Confirmed Type cyclobenzaprine 10 mg tablet 10 mg PO BID PRN muscle spasm 30 09/18/20 12/02/23 Rx days #60 tabs acetaminophen 325 mg tablet 650 mg (2 x 325 mg) PO Q6H PRN 03/01/22 12/02/23 Rx pain #30 tabs lithium carbonate 300 mg tablet 300 mg PO AMHS 06/04/22 12/02/23 History trazodone 100 mg tablet 100 mg PO HS 06/04/22 12/02/23 History brexpiprazole 3 mg tablet (Rexulti) 3 mg PO QAM 06/23/22 12/02/23 History celecoxib 200 mg capsule 200 mg PO DAILY PRN Pain 06/23/22 12/02/23 History duloxetine 30 mg capsule,delayed 30 mg PO HS 06/23/22 12/02/23 History release mirtazapine 30 mg tablet (Remeron) 30 mg PO HS 06/23/22 12/02/23 History alfuzosin 10 mg tablet,extended 10 mg PO QAM #90 tabs 08/05/22 12/02/23 Rx release 24 hr blood sugar diagnostic (OneTouch 08/06/22 12/02/23 History Verio test strips) duloxetine 60 mg capsule,delayed 60 mg PO QAM 11/09/22 12/02/23 History release prazosin 5 mg capsule (Minipress) 5 mg PO HS 11/09/22 12/02/23 History oxybutynin chloride 5 mg tablet 5 mg PO Q8H PRN bladder spasms #20 12/06/22 12/02/23 Rx tabs docusate sodium 100 mg capsule 100 mg PO BID PRN Constipation 12/27/22 12/02/23 History (Colace) onabotulinumtoxinA 200 unit See Rx Instructions IM .COMPLEX #1 12/28/22 12/02/23 Rx solution for injection (Botox) ea ibuprofen 200 mg tablet (Advil) 400 mg PO Q6H PRN Pain 02/21/23 12/02/23 History fluticasone propionate 50 1 spray intranasal HS PRN allergy 03/16/23 12/02/23 Rx mcg/actuation nasal symptoms #16 grams spray,suspension (Flonase Allergy Relief) FreeStyle Rosalie 2 [place] (flash #1 ea 05/13/23 12/02/23 Rx glucose scanning reader) metformin 1,000 mg tablet 0 mg PO BID 05/23/23 12/02/23 History insulin glargine 100 unit/mL (3 0 unit subcut PM 06/04/23 12/02/23 History mL) subcutaneous pen (Lantus Solostar U-100 Insulin) lisinopril 5 mg tablet 5 mg PO QAM 06/04/23 12/02/23 History semaglutide (weight loss) 0.5 0.5 mg (0.5 mL) subcut Q7D #2 mL 06/17/23 12/02/23 Rx mg/0.5 mL subcutaneous pen injector (Wegovy) FreeStyle Rosalie 2 Sensor (flash #6 ea 06/24/23 12/02/23 Rx glucose sensor) ferrous sulfate 325 mg (65 mg 325 mg PO Q OTHER DAY #45 tabs 08/03/23 12/02/23 Rx iron) tablet hydrocodone 10 mg-acetaminophen 1 tab PO Q6H PRN Pain 08/03/23 12/02/23 History 325 mg tablet cholecalciferol (vitamin D3) 50 50 mcg PO QPM #90 caps 08/29/23 12/02/23 Rx mcg (2,000 unit) capsule potassium chloride 20 mEq 20 meq PO QAM #90 tabs 08/30/23 12/02/23 Rx tablet,extended release divalproex 500 mg tablet,delayed 1,000 mg (2 x 500 mg) PO BID 30 09/14/23 12/02/23 Rx release days #120 tabs lacosamide 150 mg tablet 150 mg PO BID #60 tabs 09/14/23 12/02/23 Rx rimegepant 75 mg disintegrating 75 mg PO DAILY PRN Migraine 09/14/23 12/02/23 Rx tablet (Nurtec ODT) Headache #8 tabs lorazepam 0.5 mg tablet 0.5 mg PO DAILY PRN Seizure 09/19/23 12/02/23 History Activity rosuvastatin 20 mg tablet 20 mg PO QAM 09/19/23 12/02/23 History pantoprazole 40 mg tablet,delayed 40 mg PO BID #60 tabs 09/28/23 12/02/23 Rx release dutasteride 0.5 mg capsule 0.5 mg PO QAM #90 caps 09/30/23 12/02/23 Rx (Avodart) propranolol 60 mg capsule,24 60 mg PO DAILY #30 caps 10/10/23 12/02/23 Rx hr,extended release furosemide 20 mg tablet 20 mg PO QAM #30 tabs 10/21/23 12/02/23 Rx desmopressin 0.1 mg tablet (DDAVP) 0.4 mg (4 x 0.1 mg) PO BID #240 10/27/23 12/02/23 Rx tabs hydrocortisone 10 mg tablet See Rx Instructions PO BID #135 10/27/23 12/02/23 Rx tabs testosterone 2 pump topical PM #75 grams 11/09/23 12/02/23 Rx thyroid (pork) 300 mg tablet 150 mg (1/2 x 300 mg) PO DAILY #45 11/09/23 12/02/23 Rx (Boswell Thyroid) tabs blood sugar diagnostic (Oneuch #150 ea 11/22/23 12/02/23 Rx Verio test strips) blood-glucose meter (OneTouch #1 ea 11/22/23 12/02/23 Rx Verio Reflect Meter) insulin syringe-needle U-100 1 mL #300 ea 11/22/23 12/02/23 Rx 30 gauge x 1/2" (BD Insulin Syringe Ultra-Fine) lancets 33 gauge (OneTouch Delica #150 ea 11/22/23 12/02/23 Rx Plus Lancet) albuterol sulfate 90 mcg/actuation 3 inh inhalation Q6H PRN shortness 11/27/23 12/02/23 Rx aerosol inhaler (Ventolin HFA) of breath or wheezing #6.7 grams glucagon 3 mg/actuation nasal 3 mg intranasal ONCE #2 ea 11/28/23 12/02/23 Rx spray (Baqsimi) levothyroxine 200 mcg tablet 0 mcg PO QAM 12/02/23 12/02/23 History oxybutynin chloride 5 mg 5 mg PO QAM 12/02/23 12/02/23 History tablet,extended release 24 hr somatropin 12 mg/mL (36 unit/mL) 0 mg subcut DAILY 12/02/23 12/02/23 History subcutaneous cartridge somatropin 5 mg/1.5 mL (3.3 mg/mL) 0 mg subcut PM 12/02/23 12/02/23 History subcutaneous pen injector (Norditropin FlexPro) Past Med/Surg History Medical History Hyperactive gag reflex BRCA gene positive tested positive in Aug 2023 [place] > reason for up coming EGD Family history of BRCA gene mutation PTSD (post-traumatic stress disorder) Epidural lipomatosis Chronic left sacroiliac pain Benzodiazepine overdose none since Nov 2022 Presence of cardiac device Loop recorder > last checked fall 2022 Hx of fracture of foot Sep 2022- right > cast since removed > still gets painful Fracture of fibula, right, closed Cerebral concussion May 2023 during seizure > no further issues Orthostatic hypotension Pseudoseizures Sensorineural hearing loss of both ears Rectal bleeding on occasion History of COVID-19 10/2021 - fatigue; resolved. Mitral valve regurgitation follows with Dr. Jacqueline Rubio Acute kidney injury September 2022 (s/p grand mal seizure) Panhypopituitarism Lower extremity edema Elevated LFTs Bilateral hand pain Pituitary neoplasm Dx'ed in 2001- s/p surgical resection and XRT Repeat surgery in 2018 secondary to tumor regrowth at [facility] Kidney stones HX Prostate mass benign Bladder mass benign Obstructive sleep apnea of adult cpap > non compliant per pt Surgical History S/P TURP (status post transurethral resection of prostate) History of lumbar fusion [facility] Jul 2022 History of cardiac cath 07/2021 - no stents S/P epidural steroid injection History of lithotripsy Status post right foot surgery replaced 5th metatarsal--hardware in place History of bladder surgery remove mass History of prostate surgery remove mass History of colonoscopy History of esophagogastroduodenoscopy (EGD) History of tooth extraction History of wisdom tooth extraction History of brain surgery x2---2004 @ [facility], 2018 @ [facility]--for brain tumors > caused epilepsy Family History Grandmother (Paternal) Family history of diabetes mellitus Aunt Family history of diabetes mellitus Uncle Family history of diabetes mellitus Father Prostate cancer Heart disease Mother Cardiac disorder Grandmother (Maternal) Myocardial infarction Other Asthma Cancer Hypertension No family history of adverse response to anesthesia No family history of bleeding disorder Stroke Denies family history of Ovarian cancer Breast cancer Colorectal cancer Social History Smoking Status: Never smoker Tobacco Type: Smokeless Tobacco (Dip or Chew) Second Hand Exposure: No; Do You Dip or Chew Tobacco: No; Hx Alcohol Use: No Hx Substance Use: No Preferred Language: Greenlandic Communication Ability: Effective Communication Ability Comment: Unable to obtain due to patient condition. Visual Impairment: No Limitations Hearing Ability: Normal [employer] Skills Required: No Beliefs That Will Affect Care: None marital status: Single Current Living Situation: Spouse current occupational status: unemployed Feels Safe at Home: Yes Safety Concerns: Feels Safe At This Time Childhood Exposure to Second-Hand Smoke: Yes (parents smoked) Seatbelt Use: always Assistive Devices: None Physical Exam Physical Exam: Physical Exam: General: In moderate distress due to back pain, stated age, he is ill jessica earing but non-toxic HEENT: Normocephalic, atraumatic, no scleral icterus, pupils around round, symmetrical, and reactive to light, moist mucus membranes, trachea midline, no thyromegaly Chest/Pulm: No respiratory distress, symmetrical chest expansion, decreased breath sounds in the BL lower lung kong but otherwise CTA Cardiac: RRR, no murmurs noted Abdomen: Obese abdomen, normoactive bowel sounds, soft, tender to palpation in the RLQ without rebound tenderness, non-tender in all other kong Musculoskeletal: patient with swelling over the lower lumbar surgical site which is significantly tender to palpation Extremities: Radial, dorsalis pedis, and posterior tibial pulses are intact and symmetrical, no edema noted in the BL LE's Skin: Warm, dry, no rashes , lesions, or scars noted Neuro: Alert and oriented to person, place, month, year, no focal defects, no tremors noted Psych: Moderate distress due to pain, calm and cooperative during the exam Results & Data Results & Data Vital Signs (Past 12 Hours) Vital Signs Temp Pulse Pulse Resp BP BP Pulse Ox 12/02/23 12:30 81 12/02/23 12:27 81 32 H 114/74 95 12/02/23 09:30 36.6 C 91 H 16 161/87 H 95 O2 Del Method 12/02/23 12:30 12/02/23 12:27 Room Air 12/02/23 09:30 Room Air Laboratory Results Abnormal lab results 12/02/23 12/02/23 12/02/23 Range/Units 10:35 11:32 11:42 WBC 30.38 H* (4.8-10.8) K/ul RDW Std Deviation 48.0 H (36.4-46.3) fL MPV 8.2 L (9.4-12.4) fL Neut # (Auto) 25.72 H (1.40-6.50) K/uL [place] # (Auto) 1.86 H (0.11-0.59) K/uL Immature Gran # (Auto) 1.02 H (0.01-0.20) K/uL VBG pCO2 65 H (38-50) mmHg Carbon Dioxide 33 H (21-32) mmol/L BUN/Creatinine Ratio 22.5 H (10-20) Glucose 16 L* (70-99(Fasting)) mg/dl POC Glucose 28 L* (70-99) mg/dl AST 12 L (13-39) U/L TSH 0.020 L (0.300-4.500) uIu/ml Free T4 1.61 H (0.61-1.60) ng/dl [place] (0.6-1.2) mmol/L Entero/Rhino (PCR) (NotDetected) 12/02/23 12/02/23 12/02/23 Range/Units 12:04 12:38 Unknown WBC (4.8-10.8) K/ul RDW Std Deviation (36.4-46.3) fL MPV (9.4-12.4) fL Neut # (Auto) (1.40-6.50) K/uL [place] # (Auto) (0.11-0.59) K/uL Immature Gran # (Auto) (0.01-0.20) K/uL VBG pCO2 (38-50) mmHg Carbon Dioxide (21-32) mmol/L BUN/Creatinine Ratio (10-20) Glucose (70-99(Fasting)) mg/dl POC Glucose 66 L* (70-99) mg/dl AST (13-39) U/L TSH (0.300-4.500) uIu/ml Free T4 (0.61-1.60) ng/dl [place] < 0.1 L (0.6-1.2) mmol/L Entero/Rhino (PCR) DETECTED A* (NotDetected) ECG Additional Comments: Normal sinus rhythm Normal ECG When compared with ECG of 27-NOV-2023 12:00, No significant change was found Confirmed by Garfield Marx ([id number]) on 12/02/2023 11 :56:57 AM Code Status & VTE Plan Code Status DNR/DNI VTE Prophylaxis Plan VTE Prophylaxis will be ordered: Yes Supervising Physician Co-Signing Physician Notes I personally saw and examined the patient. I verified all tinoco points and agree with Bernard Farrell PA-C with the following exceptions and/or additions: 53 year old male presents to the ER with back pain, confusion, non-productive cough, diarrhea, fever, chills, diaphoresis, difficulty voiding, dysuria. Hypoglycemic in the ER despite holding insulin since 11/28. O/E Alert, orientated to person only, HS RRR, no murmurs, Chest CTAB, Abdo RLQ and suprapubic tenderness without guarding or rebound tenderness, left > right CVA tenderness, central and paraspinal lower back pain, no areas of cellulitis seen. A/P Leukocytosis - concerning for infection although no source on admission. Procalcitonin normal. CRP elevated. Empirically given PO vancomycin due to diarrhea, IV cefepime/vancomycin. Will continue IV antibiotics pending blood culture results. Possible stress reaction to syncopa episode yesterday Adrenal insufficiency - diarrhea, unexplained hypoglycemia, dehydration. Random cortisol. Hydrocortisone 100mg IV now then 50mg IV q6h, suspect can be rapidly weaned over the next few days. Panhypopituitarism - continue desmopressin, testosterone, levothyroxine Hypoglycemia - insulin and c-peptide levels taken per recommendations from prior endocrine notes Back pain - MRI lumbar spine without concerns for infection, suspect MSK due to hitting the granite top last night Recurrent syncope - multiple prior episodes without echo abnormality or loop recorder findings. ?due to hypoglycemia. PG Care Time/CCT Total # of Minutes Spent Total Time Spent with Patient: Total time spent is greater than 50% in coordination of care (as documented) at patient's floor/unit and/or counseling patient: Coding [place] [address] INT INP/OBS CARE 3/75MIN Patient Type Established Medical Decision Making High Complexity Diagnoses Sepsis A41.9 Hypoglycemia E16.2 Syncope and collapse R55 Secondary adrenal insufficiency E27.49 Rhinovirus B34.8 Panhypopituitarism E23.0 Recurrent seizures G40.909 Obstructive sleep apnea G47.33 Bipolar disorder F31.9 BPH with obstruction/lower urinary tract symptoms N40.1; N13.8
[2023-12-02] MEDS ORDERED: VANCOMYCIN HCL 125 MG/2.5ML SOLN PO STA (13:31)
[2023-12-02] MEDS ORDERED: CHERRY SYRUP 5 ML UDP PO STA (13:31)
[2023-12-02 14:50] LABS: Appearance Urine Clear (Clear); Bacteria Urine Automated Negative (Negative); Bilirubin Urine Negative (Negative); Blood Urine 1+ (Negative); Color Urine Yellow; Glucose Urine UA Trace (Negative); Ketones Urine Negative (Negative); Leukocyte Esterase Urine Negative (Negative); Nitrite Urine Negative (Negative); Protein Urine Trace (Negative); Specific Gravity Urine 1.019 (1.000-1.030); Urobilinogen Urine Positive (Negative)
[2023-12-02] MEDS ORDERED: GADOBUTROL 65ML VIAL IV ONE (14:53)
--- NOTE | 2023-12-02 15:32 | Magnetic Resonance Report ---
MRI OF THE LUMBAR SPINE WITH AND WITHOUT CONTRAST CLINICAL HISTORY: lumbar abscess, WBC 30 w worsen pain COMPARISON STUDY: Lumbar spine MRI October 04, 2022. Lumbar spine CT June 04, 2023. TECHNIQUE: Utilizing a 1.5 Francine magnet and dedicated coil, multiplanar, multiecho imaging of the [facility] spine was performed before and after uneventful IV administration of 11.4 mL of Gadavist. FINDINGS: For purposes of numbering on this exam, the L5-S1 disc space is assigned to axial image 27 of 33. Sli ght anterolisthesis of L5 on S1 is unchanged. There are stable postoperative findings consistent with L5-S1 posterior decompression, fusion and discectomy. Increased T2 signal within the operative bed r epresents postsurgical change. No operative bed fluid collection is present. There is no epidural flu id collection. No evidence for discitis or osteomyelitis. Vertebral body heights are maintained. Note is made of moderate increased T2 signal and diminished T1 signal within the spinous processes of L2, L3 and L4. This is new since previous MRI. L1-2: The central canal and neural foramen are patent. L2-3: The central canal and neural foramen are patent. L3-4: The central canal and neural foramen are patent. There is mild disc bulge and facet arthrosis. L4-5: There is moderate facet arthrosis. The central canal and neural foramen are patent. L5-S1: Stable postoperative findings are noted. There is no recurrent central canal stenosis. There i s no significant neural foraminal stenosis. IMPRESSION: 1. Stable postoperative findings following L5-S1 posterior decompression, discectomy and fusion. Oper ative bed increased T2 signal represents expected postsurgical change. 2. No fluid collections within the lumbar spine. No evidence for an acute infectious process within t he lumbar spine by MRI. 3. T2 hyperintensity within the spinous processes of L2, L3 and L4. The MRI appearance is nonspecific but could reflect acute to subacute fractures or bone contusions. ACT 112: Negative or not required by law. Electronically signed by: Aditya Foley M.D. 12/02/2023 3:30 PM
[2023-12-02] MEDS ORDERED: LACOSAMIDE 50 MG TABLET PO STA ×2 (15:39→15:47)
[2023-12-02] MEDS ORDERED: DESMOPRESSIN ACETATE 0.1 MG TAB PO STA (15:39)
[2023-12-02] MEDS ORDERED: PANTOprazole 40 MG TAB PO STA (15:39)
[2023-12-02] MEDS ORDERED: lisinopril 5 MG TAB PO ONE (15:39)
[2023-12-02] MEDS ORDERED: PROPRANOLOL HCL 60 MG LA CAP PO STA (15:39)
[2023-12-02] MEDS ORDERED: LITHIUM CARBONATE 300 MG TAB PO STA (15:39)
[2023-12-02] MEDS ORDERED: DULoxetine HCL 30 MG CAP PO STA (15:39)
[2023-12-02] MEDS ORDERED: ROSUVASTATIN CALCIUM 20 MG TAB PO STA (15:44)
--- NOTE | 2023-12-02 15:44 | CT Scan Report ---
CT OF THE ABDOMEN AND PELVIS WITHOUT CONTRAST CLINICAL HISTORY: left CVA tenderness, sepsis COMPARISON STUDY: CT of the abdomen and pelvis May 25, 2023. TECHNIQUE: Axial images of the abdomen and pelvis were obtained without IV contrast. Images were revi ewed in the axial, sagittal, and coronal planes. Automated exposure control was utilized for the moira dy. A dose lowering technique was utilized adhering to the principles of ALARA. FINDINGS: There are trace bilateral pleural effusions. No acute fractures are identified within the v isualized lower ribs. No hydronephrosis is present. Sensitivity for detection of urinary calculi is d iminished given excreted contrast from recent contrast-enhanced MRI. No pneumatosis, free air or port al venous gas is present. Evaluation of the abdomen and pelvis is suboptimal on this unenhanced exam. Liver, spleen, adrenal glands and pancreas are unremarkable. There is no evidence for a bowel obstru ction. The appendix is normal. No fluid collections are present. There is no lymphadenopathy. No acut e fractures are identified. Postoperative findings consistent with L5-S1 discectomy, decompression an d fusion are present. IMPRESSION: 1. No acute process within the abdomen or pelvis on unenhanced exam. 2. No hydronephrosis. Decreased sensitivity for detection of urinary calculi given excreted MR contra st. However, no definite calculi. ACT 112: Negative or not required by law. Electronically signed by: Aditya Foley M.D. 12/02/2023 3:43 PM
[2023-12-02] MEDS ORDERED: DIVALPROEX DELAY RELEASE 500 MG TAB PO ONE (15:48)
[2023-12-02] MEDS ORDERED: guaiFENesin/CODEINE 100MG/10MG 5ML UDC PO STA (16:17)
[2023-12-02 17:03] LABS: C Reactive Protein 28.01 mg/dl (0-0.5)
[2023-12-02] MEDS ORDERED: CYCLOBENZAPRINE HCL 10 MG TAB PO PRN (17:14)
[2023-12-02] MEDS ORDERED: ALBUTEROL HFA 8 GM INHALER INH PRN (17:14)
[2023-12-02] MEDS ORDERED: guaiFENesin/CODEINE 100MG/10MG 5ML UDC PO PRN (17:14)
[2023-12-02] MEDS ORDERED: FERROUS SULFATE 325 MG TAB PO SCH (18:00)
[2023-12-02] MEDS ORDERED: HYDROCORTISONE SOD SUCCINATE 100 MG/2 ML VIAL IV SCH (19:00)
--- NOTE | 2023-12-02 19:22 | Pharmacy Report ---
Pharmacy Vanc AUC Short Note - Date of Service December 02, 2023 - Assessment & Plan Assessment 53 year old M receiving vancomycin for empiric treatment of sepsis. Day #1 of antimicrobial therapy: 12/02/2023 Plan Vancomycin * Load: Vancomycin 2,250 mg IV once on 12/02/23 at 1546. * Maintenance: Vancomycin 750 mg IV q8h starting 12/03/23 at 0000. * AUC/WINTER is the preferred PK/PD target for vancomycin * AUC guided dosing is effective and associated with decreased risk of nephrotoxicity compared to traditional trough targets * Trough level of 18 mcg/mL is predicted to achieve target AUC/WINTER of 400-600 mg/L.hr and may be associated with a 14% risk of nephrotoxicity * Trough or random level ordered for: 12/04/23 at 0730. Pharmacy will continue to follow and will adjust dose/frequency as necessary. Thank you.
[2023-12-02] MEDS: HYDROcodone/ACETAMINOPHEN 10/325 TAB PO PRN (19:47)
[2023-12-02] MEDS: HYDROCORTISONE SOD 50 MG in SYRINGE 0 ML IV SCH (20:46)
[2023-12-02] MEDS: DESMOPRESSIN ACETATE 0.1 MG TAB PO SCH (21:43)
[2023-12-02] MEDS: DIVALPROEX DELAY RELEASE 500 MG TAB PO SCH (21:44)
[2023-12-02] MEDS: DULoxetine HCL 30 MG CAP PO SCH (21:44)
[2023-12-02] MEDS: LACOSAMIDE 50 MG TABLET PO SCH (21:44)
[2023-12-02] MEDS: PANTOprazole 40 MG TAB PO SCH (22:14)
[2023-12-02] MEDS: ENOXAPARIN INJ 40 MG/0.4 ML SYR SQ SCH (22:14)
[2023-12-02] MEDS: traZODone HCL 100 MG TAB PO SCH (22:15)
[2023-12-02] MEDS: PRAZOSIN HCL 1 MG CAP PO SCH (22:15)
[2023-12-02 23:40] LABS: Adenovirus F 40/41 PCR Not Detected (NotDetected); Astrovirus PCR Not Detected (NotDetected); Campylobacter PCR Not Detected (NotDetected); Cryptosporidium PCR Not Detected (NotDetected); Cyclospora cayetanensis PCR Not Detected (NotDetected); Entamoeba histolytica PCR Not Detected (NotDetected); Enteroaggregative E.coli(EAEC) Not Detected (NotDetected); Enteropathogenic E.coli (EPEC) Not Detected (NotDetected); Enterotoxigenic E.coli (ETEC) Not Detected (NotDetected); Giardia lamblia PCR Not Detected (NotDetected); Norovirus GI/GII PCR Not Detected (NotDetected); Plesiomonas shigelloides PCR Not Detected (NotDetected); Rotavirus A PCR Not Detected (NotDetected); Salmonella PCR Not Detected (NotDetected); Sapovirus PCR Not Detected (NotDetected); Shiga-like Toxin E.coli (STEC) Not Detected (NotDetected); Shigella/Enteroinvasive E.coli Not Detected (NotDetected); Vibrio cholerae PCR Not Detected (NotDetected); Vibrio species PCR Not Detected (NotDetected); Yersinia enterocolitica PCR Not Detected (NotDetected)
[2023-12-02] MEDS: CEFEPIME 2,000 MG in SYRINGE 0 ML IV SCH (23:54)
[2023-12-03] MEDS: HYDROCORTISONE SOD 50 MG in SYRINGE 0 ML IV SCH ×4 (01:49→20:43)
[2023-12-03] MEDS: VANCOMYCIN HCL 750 MG in SODIUM CHLORIDE 0.9% 250 ML IV SCH ×4 (01:52→23:22)
[2023-12-03 04:46] LABS: Hematocrit (blood only) 35.1 % (42.0-52.0); Hemoglobin 11.4 g/dl (14.0-18.0); Mean Corpuscular Hemoglobin 29.3 pg (25.0-34.0); Mean Corpuscular Hgb Conc 32.5 g/dL (32.0-36.0); Mean Corpuscular Volume 90.2 fL (80.0-100.0); Mean Platelet Volume 8.4 fL (9.4-12.4); Platelet Count 115 K/uL (130-400); RDW Coefficient of Variation 14.2 % (11.5-14.5); RDW Standard Deviation 46.9 fL (36.4-46.3); Red Blood Count 3.89 M/uL (4.70-6.10); White Blood Count 24.24 K/ul (4.8-10.8)
[2023-12-03 05:03] LABS: Albumin Globulin Ratio 1.2 (0.9-2); BUN Creatinine Ratio 27.3 (10-20); Bilirubin,Total 0.5 mg/dl (0.2-1.0); Calcium 8.4 mg/dl (8.6-10.3); Est GFR (African American) 118.4 ml/min; Est GFR (Non-African American) 102.2 ml/min; Globulin 2.6 gm/dl (2.5-4.0); Potassium 4.4 mmol/L (3.5-5.1); Total Protein 5.6 gm/dl (6.0-8.3)
[2023-12-03 05:22] LABS: Basophils # (auto) 0.09 K/uL (0.00-0.20); Basophils % (auto) 0.4 %; Immature Granulocytes % (auto) 1.7 %; Lymphocytes # (auto) 1.02 K/uL (1.20-3.40); Lymphocytes % (auto) 4.2 %; Monocytes # (auto) 0.54 K/uL (0.11-0.59); Monocytes % (auto) 2.2 %; Neutrophils # (auto) 22.19 K/uL (1.40-6.50); Neutrophils % (auto) 91.5 %
[2023-12-03] MEDS: CEFEPIME 2,000 MG in SYRINGE 0 ML IV SCH ×3 (08:05→23:13)
[2023-12-03] MEDS: DESMOPRESSIN ACETATE 0.1 MG TAB PO SCH ×2 (08:08→20:35)
[2023-12-03] MEDS: DULoxetine HCL 60 MG CAP PO SCH (08:09)
[2023-12-03] MEDS: DIVALPROEX DELAY RELEASE 500 MG TAB PO SCH ×2 (08:09→20:35)
[2023-12-03] MEDS: FINASTERIDE 5 MG TAB PO SCH (08:10)
[2023-12-03] MEDS: ENOXAPARIN INJ 40 MG/0.4 ML SYR SQ SCH ×2 (08:10→10:07)
[2023-12-03] MEDS: LACOSAMIDE 50 MG TABLET PO SCH ×2 (08:11→20:43)
[2023-12-03] MEDS: PANTOprazole 40 MG TAB PO SCH ×2 (08:12→10:10)
[2023-12-03] MEDS: OXYBUTYNIN CHLORIDE XL 5 MG TABCR PO SCH (08:12)
[2023-12-03] MEDS: PROPRANOLOL HCL 60 MG LA CAP PO SCH (08:13)
[2023-12-03] MEDS: ROSUVASTATIN CALCIUM 20 MG TAB PO SCH (08:13)
[2023-12-03] MEDS: TAMSULOSIN HCL 0.4 MG CAP PO SCH (08:14)
[2023-12-03] MEDS: ARMOUR THYROID 30 MG TAB PO SCH (08:14)
[2023-12-03] MEDS ORDERED: LEVOTHYROXINE SODIUM 200 MCG TABLET PO SCH (09:00)
[2023-12-03] MEDS: LEVOTHYROXINE SODIUM 150 MCG TABLET PO SCH (10:09)
[2023-12-03] MEDS: FERROUS SULFATE 325 MG TAB PO SCH ×2 (10:15→20:35)
[2023-12-03] MEDS: FUROSEMIDE 40 MG/4 ML VIAL IV SCH ×2 (10:15→20:35)
--- NOTE | 2023-12-03 13:00 | Hospitalist Progress Note ---
Date of Service December 03, 2023 Assessment & Plan (1) Acute CHF: Plan: Probably diastolic. Cardiac echo report is pending. Continue parenteral Lasix diuresis. Monitor intake and output. Telemetry (2) Sepsis: Plan: Suspected on admission. He remains on cefepime and vancomycin, day 2. Blood cultures obtained on admission remain negative. Hopefully can discontinue antibiotics tomorrow, December 04 (3) Hypoglycemia: Plan: Present on admission. Now resolved. Serial Accu-Cheks. He denies taking basal insulin therapy at home. (4) Syncope and collapse: Plan: Probably due to hypoglycemia. Telemetry. 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 Currently on parenteral hydrocortisone for now (6) Rhinovirus: Plan: Recent positive test result during his ED visit on 11/27/23. Supportive care (7) Panhypopituitarism: Plan: Steroid-dependent. Continue desmopressin, testosterone, thyroid replacement. Thyroid replacement tapered down due to elevated free T4 levels and suppressed TSH. (8) Recurrent seizures: Plan: Stable. Continue Depakote and lacosamide (9) Bipolar disorder: Plan: Stable. Continue current medical management Plan Anticipate eventual discharge to home Admission and Anticipated Discharge Date Admission Date: December 02, 2023 Subjective Alert and oriented. No complaints. He does complain of recent weight gain, edema, dyspnea on exertion. He appears to have CHF which is probably diastolic. He is now on parenteral Lasix therapy. Will repeat portable chest x-ray again tomorrow, December 04. Free T4 level is slightly elevated and TSH level is suppressed. Thyroid replacement dosage decreased. Parenteral hydrocortisone dosage frequency also decreased. He remains on cefepime and vancomycin for now, day 2. Blood cultures are negative to date. Hyperglycemia present on admission has resolved. He is not on basal insulin therapy Review of Systems 2 Review of Systems: Constitutional-no fever or chills ENT-no blurred vision, no double vision, no epistaxis, no sore throat Respiratory-nonproductive cough. Dyspnea on exertion Cardiac-no palpitations, no chest pain, no syncope GI-no nausea, vomiting, diarrhea, melena, hematochezia -no urinary retention, no urinary incontinence, no dysuria, no hematuria Musculoskeletal-no joint pain, no muscle tenderness Skin-no bruising, no rashes, no pruritus Neuro-no isolated weakness, no paresthesia, no weakness Psych-no depression, no anxiety Physical Exam 2 Physical Exam: General-alert and oriented x3, no fevers, no chills HEENT-head atraumatic and normocephalic, pupils equal and reactive to light, extraocular muscles intact Neck-no lymphadenopathy or thyromegaly, trachea midline Chest-bibasilar inspiratory rales. No wheezing. No dullness to percussion Cardiac-regular rate and rhythm, normal S1 and S2 Abdomen-normal bowel sounds, nontender, no hepatosplenomegaly Extremities-1+ pitting edema bilateral lower extremities below the knees Neuro-cranial nerves II through XII intact, motor and sensory function within normal limits, strength symmetrical , no focal deficits Psych-flat affect Results & Data Results & Data Vital Signs (Past 12 Hours) Vital Signs Pulse Resp BP Pulse Ox O2 Del Method O2 Flow Rate 12/03/23 10:41 83 24 131/75 97 12/03/23 10:00 84 19 132/77 12/03/23 08:00 77 17 133/81 91 12/03/23 07:36 75 12/03/23 06:25 77 127/81 95 Nasal Cannula 2 12/03/23 04:00 89 25 H 101/62 92 Nasal Cannula 2 12/03/23 03:19 82 18 129/96 93 Nasal Cannula 2 Laboratory Results 12/03/23 04:03 12/03/23 04:03 PG Care Time/CCT Total # of Minutes Spent Total Time Spent with Patient: Total time spent is greater than 50% in coordination of care (as documented) at patient's floor/unit and/or counseling patient: Coding Level of Care Code 40907 SUB INP/OBS CARE 3/50MIN Diagnoses Acute CHF I50.9 Sepsis A41.9 Hypoglycemia E16.2 Syncope and collapse R55 Secondary adrenal insufficiency E27.49 Rhinovirus B34.8 Panhypopituitarism E23.0 Recurrent seizures G40.909 Bipolar disorder F31.9
--- NOTE | 2023-12-03 14:04 | XCELERA ---
[id number]
[2023-12-03] MEDS ORDERED: CEFEPIME 2,000 MG/20 ML VIAL ONE (15:17)
[2023-12-03] MEDS: traZODone HCL 100 MG TAB PO SCH (20:35)
[2023-12-03] MEDS: PRAZOSIN HCL 1 MG CAP PO SCH (20:36)
[2023-12-03] MEDS: DULoxetine HCL 30 MG CAP PO SCH (20:36)
[2023-12-03] MEDS: HYDROcodone/ACETAMINOPHEN 10/325 TAB PO PRN (22:22)
[2023-12-03] MEDS ORDERED: LORazepam 0.5 MG TAB PO PRN (22:56)
[2023-12-03] MEDS ORDERED: LORazepam 1 MG in SYRINGE 0.5 ML IV PRN (23:34)
[2023-12-04] MEDS: LEVOTHYROXINE SODIUM 150 MCG TABLET PO SCH (05:49)
[2023-12-04] MEDS: HYDROCORTISONE SOD 50 MG in SYRINGE 0 ML IV SCH (05:49)
[2023-12-04] MEDS: HYDROcodone/ACETAMINOPHEN 10/325 TAB PO PRN (05:50)
[2023-12-04 06:24] LABS: Basophils # (auto) 0.05 K/uL (0.00-0.20); Basophils % (auto) 0.3 %; Eosinophils # (auto) 0.02 K/uL (0.00-0.50); Eosinophils % (auto) 0.1 %; Hemoglobin 11.2 g/dl (14.0-18.0); Immature Granulocytes % (auto) 3.1 %; Lymphocytes % (auto) 8.8 %; Mean Corpuscular Hemoglobin 29.3 pg (25.0-34.0); Mean Corpuscular Hgb Conc 32.9 g/dL (32.0-36.0); Mean Platelet Volume 8.8 fL (9.4-12.4); Monocytes # (auto) 0.53 K/uL (0.11-0.59); Monocytes % (auto) 3.3 %; Neutrophils # (auto) 13.43 K/uL (1.40-6.50); Neutrophils % (auto) 84.4 %; Platelet Count 133 K/uL (130-400); RDW Coefficient of Variation 14.1 % (11.5-14.5); RDW Standard Deviation 46.4 fL (36.4-46.3); Red Blood Count 3.82 M/uL (4.70-6.10); White Blood Count 15.93 K/ul (4.8-10.8)
[2023-12-04] MEDS ORDERED: VANCOMYCIN LEVEL ONE (06:30)
[2023-12-04 06:37] LABS: BUN Creatinine Ratio 29.9 (10-20); Calcium 8.4 mg/dl (8.6-10.3); Est GFR (African American) 118.4 ml/min; Est GFR (Non-African American) 102.2 ml/min; Potassium 3.8 mmol/L (3.5-5.1)
--- NOTE | 2023-12-04 07:09 | XRay Report ---
SINGLE VIEW CHEST CLINICAL HISTORY: Congestive heart failure. FINDINGS: An AP, portable, upright chest radiograph is compared to study dated 12/02/2023. The heart i s mildly enlarged. There is mild pulmonary vascular congestion. Atelectasis is noted at the lung base s. No airspace consolidation or large pleural effusions identified. No pneumothorax is seen. The bony thorax is grossly intact. IMPRESSION: 1. Cardiomegaly with mild pulmonary vascular congestion. This has improved from 12/02/2023. 2. No airspace consolidation or large pleural effusion is identified. ACT 112: Negative or not required by law. Electronically signed by: Galindo Mejia M.D. 12/04/2023 7:07 AM
[2023-12-04] MEDS: CEFEPIME 2,000 MG in SYRINGE 0 ML IV SCH (08:41)
[2023-12-04] MEDS: ENOXAPARIN INJ 40 MG/0.4 ML SYR SQ SCH (08:44)
[2023-12-04] MEDS: ARMOUR THYROID 30 MG TAB PO SCH (08:45)
[2023-12-04] MEDS: OXYBUTYNIN CHLORIDE XL 5 MG TABCR PO SCH (08:46)
[2023-12-04] MEDS: ROSUVASTATIN CALCIUM 20 MG TAB PO SCH (08:47)
[2023-12-04] MEDS: PROPRANOLOL HCL 60 MG LA CAP PO SCH (08:47)
[2023-12-04] MEDS: TAMSULOSIN HCL 0.4 MG CAP PO SCH (08:47)
[2023-12-04] MEDS: FINASTERIDE 5 MG TAB PO SCH (08:48)
[2023-12-04] MEDS: PANTOprazole 40 MG TAB PO SCH (08:48)
[2023-12-04] MEDS: DESMOPRESSIN ACETATE 0.1 MG TAB PO SCH ×2 (08:49→19:40)
[2023-12-04] MEDS: DULoxetine HCL 60 MG CAP PO SCH (08:49)
[2023-12-04] MEDS: DIVALPROEX DELAY RELEASE 500 MG TAB PO SCH ×2 (08:49→19:41)
[2023-12-04] MEDS: FERROUS SULFATE 325 MG TAB PO SCH ×2 (08:49→19:45)
[2023-12-04] MEDS: LACOSAMIDE 50 MG TABLET PO SCH ×2 (09:40→20:34)
[2023-12-04] MEDS: FUROSEMIDE 40 MG/4 ML VIAL IV SCH ×2 (09:54→20:33)
[2023-12-04] MEDS: HYDROCORTISONE 10 MG TAB PO SCH (09:55)
[2023-12-04] MEDS: VANCOMYCIN HCL 750 MG in SODIUM CHLORIDE 0.9% 250 ML IV SCH (09:57)
--- NOTE | 2023-12-04 12:42 | Hospitalist Progress Note ---
Date of Service December 04, 2023 Assessment & Plan (1) Acute CHF: Plan: Diastolic. Cardiac echo reveals moderate LVH with normal ejection fraction and 1+ MR. Responding well to parenteral Lasix diuresis. Monitor intake and output. Telemetry. Chest x-ray done today, December 04, looks better (2) Sepsis: Plan: Ruled out. Cultures negative. Antibiotics have been discontinued. (3) Hypoglycemia: Plan: Present on admission. Now resolved. Serial Accu-Cheks. He denies taking basal insulin therapy at home. (4) Syncope and collapse: Plan: Probably due to hypoglycemia. Telemetry. Will follow (5) Secondary adrenal insufficiency: Plan: Steroid-dependent on Hydrocortisone. Parenteral hydrocortisone has been switched back to oral dosing today, December 04 (6) Rhinovirus: Plan: Recent positive test results on November 27 and December 02. No intervention necessary at this time (7) Panhypopituitarism: Plan: Steroid-dependent. Continue desmopressin, testosterone, thyroid replacement. Thyroid replacement tapered down due to elevated free T4 levels and suppressed TSH. (8) Recurrent seizures: Plan: Stable. Continue Depakote and lacosamide (9) Bipolar disorder: Plan: Stable. Continue current medical management Plan Anticipate eventual discharge to home within the next day or Admission and Anticipated Discharge Date Admission Date: December 02, 2023 Subjective Alert and oriented. Pleasant. He is diuresing well with parenteral Lasix. Chest x-ray today, December 04, looks better. Oxygen has been weaned down to only 1 L/min and will eventually be weaned off. Cultures are negative. Antibiotics have been discontinued. Parenteral hydrocortisone switch back to oral dosing. Cardiac echo reveals normal ejection fraction with moderate LVH and 1+ MR. Glucose 211 this morning. Review of Systems 2 Review of Systems: Constitutional-no fever or chills ENT-no blurred vision, no double vision, no epistaxis, no sore throat Respiratory-nonproductive cough. Dyspnea on exertion Cardiac-no palpitations, no chest pain, no syncope GI-no nausea, vomiting, diarrhea, melena, hematochezia -no urinary retention, no urinary incontinence, no dysuria, no hematuria Musculoskeletal-no joint pain, no muscle tenderness Skin-no bruising, no rashes, no pruritus Neuro-no isolated weakness, no paresthesia, no weakness Psych-no depression, no anxiety Physical Exam 2 Physical Exam: General-alert and oriented x3, no fevers, no chills HEENT-head atraumatic and normocephalic, pupils equal and reactive to light, extraocular muscles intact Neck-no lymphadenopathy or thyromegaly, trachea midline Chest-bibasilar inspiratory rales have lessened. No wheezing. No dullness to percussion Cardiac-regular rate and rhythm, normal S1 and S2 Abdomen-normal bowel sounds, nontender, no hepatosplenomegaly Extremities-1+ pitting edema bilateral lower extremities below the knees has improved considerably Neuro-cranial nerves II through XII intact, motor and sensory function within normal limits, strength symmetrical , no focal deficits Psych-normal affect, pleasant Results & Data Results & Data Vital Signs (Past 12 Hours) Vital Signs Temp Pulse Resp BP Pulse Ox O2 Del Method O2 Flow Rate 12/04/23 11:33 36.4 C L 79 18 150/84 H 94 Nasal Cannula 1 12/04/23 07:35 36.4 C L 75 18 155/92 H 92 Nasal Cannula 1 12/04/23 04:00 36.3 C L 73 18 143/80 H 96 Nasal Cannula 1 Laboratory Results 12/04/23 05:51 12/04/23 05:51 PG Care Time/CCT Total # of Minutes Spent Total Time Spent with Patient: Total time spent is greater than 50% in coordination of care (as documented) at patient's floor/unit and/or counseling patient: Coding Level of Care Code 18977 SUB INP/OBS CARE 3/50MIN Diagnoses Acute CHF I50.9 Sepsis A41.9 Hypoglycemia E16.2 Syncope and collapse R55 Secondary adrenal insufficiency E27.49 Rhinovirus B34.8 Panhypopituitarism E23.0 Recurrent seizures G40.909 Bipolar disorder F31.9
[2023-12-04] MEDS: DULoxetine HCL 30 MG CAP PO SCH (19:43)
[2023-12-04] MEDS: PRAZOSIN HCL 1 MG CAP PO SCH (19:47)
[2023-12-04] MEDS: traZODone HCL 100 MG TAB PO SCH (19:49)
[2023-12-04] MEDS ORDERED: HYDROCORTISONE 10 MG TAB PO SCH (21:00)
[2023-12-05] MEDS: LEVOTHYROXINE SODIUM 150 MCG TABLET PO SCH (04:14)
[2023-12-05 07:18] LABS: BUN Creatinine Ratio 22.9 (10-20); Calcium 8.7 mg/dl (8.6-10.3); Creatinine Clr Calc Pharmacy 117.7 ml/min; Est GFR (African American) 114.8 ml/min; Est GFR (Non-African American) 99.1 ml/min; Potassium 3.5 mmol/L (3.5-5.1)
[2023-12-05 07:22] LABS: Basophils # (auto) 0.01 K/uL (0.00-0.20); Basophils % (auto) 0.1 %; Eosinophils # (auto) 0.04 K/uL (0.00-0.50); Eosinophils % (auto) 0.4 %; Hematocrit (blood only) 37.8 % (42.0-52.0); Hemoglobin 12.6 g/dl (14.0-18.0); Immature Granulocytes # (auto) 0.93 K/uL (0.01-0.20); Immature Granulocytes % (auto) 8.4 %; Lymphocytes % (auto) 25.2 %; Mean Corpuscular Hemoglobin 29.6 pg (25.0-34.0); Mean Corpuscular Hgb Conc 33.3 g/dL (32.0-36.0); Mean Corpuscular Volume 88.9 fL (80.0-100.0); Mean Platelet Volume 8.4 fL (9.4-12.4); Monocytes # (auto) 0.79 K/uL (0.11-0.59); Monocytes % (auto) 7.1 %; Neutrophils # (auto) 6.55 K/uL (1.40-6.50); Neutrophils % (auto) 58.8 %; Nucleated RBC # (auto) 0.05 K/uL (0.00-0.12); Nucleated RBC % (auto) 0.4 %; Platelet Count 186 K/uL (130-400); RDW Standard Deviation 45.1 fL (36.4-46.3); Red Blood Count 4.25 M/uL (4.70-6.10); White Blood Count 11.12 K/ul (4.8-10.8)
[2023-12-05] MEDS: FUROSEMIDE 40 MG/4 ML VIAL IV SCH (08:40)
[2023-12-05] MEDS: ARMOUR THYROID 30 MG TAB PO SCH (08:41)
[2023-12-05] MEDS: OXYBUTYNIN CHLORIDE XL 5 MG TABCR PO SCH (08:41)
[2023-12-05] MEDS: ROSUVASTATIN CALCIUM 20 MG TAB PO SCH (08:41)
[2023-12-05] MEDS: PANTOprazole 40 MG TAB PO SCH (08:41)
[2023-12-05] MEDS: TAMSULOSIN HCL 0.4 MG CAP PO SCH (08:41)
[2023-12-05] MEDS: HYDROCORTISONE 10 MG TAB PO SCH (08:41)
[2023-12-05] MEDS: PROPRANOLOL HCL 60 MG LA CAP PO SCH (08:41)
[2023-12-05] MEDS: FINASTERIDE 5 MG TAB PO SCH (08:42)
[2023-12-05] MEDS: DIVALPROEX DELAY RELEASE 500 MG TAB PO SCH (08:42)
[2023-12-05] MEDS: FERROUS SULFATE 325 MG TAB PO SCH (08:42)
[2023-12-05] MEDS: DULoxetine HCL 60 MG CAP PO SCH (08:42)
[2023-12-05] MEDS: DESMOPRESSIN ACETATE 0.1 MG TAB PO SCH (08:42)
[2023-12-05] MEDS: ENOXAPARIN INJ 40 MG/0.4 ML SYR SQ SCH (08:43)
[2023-12-05] MEDS: LACOSAMIDE 50 MG TABLET PO SCH (09:08)
--- NOTE | 2023-12-05 13:05 | Discharge Summary ---
Date of Service December 05, 2023 Admission HPI Per Admitting Provider Anders is a 53-year-old male with PMH of T2DM, bipolar disorder on lithium , syncope, MR, migraine, pseudoseizures, hx of multiple pituitary tumors with pituitary apoplexy, S/P multiple pituitary surgeries and radiation therapy at [facility] [place], pituitary DI/hypogonadism/hypothyroidism on chronic hydrocortisone therapy, anxiety, depression, and BPH who presented to the [facility] ED on 12/02/23 with complaints on ongoing illness with cough, fevers, SOB for the past 3 weeks with an episode of syncope at home last night. On arrival to the ED he was noted to he initially hypertensive at 161/87, tachycardic at 118, and otherwise stable. Labs were significant for a leukocytosis of 30 with neutrophil predominance of 25, VBG pH of 7.39 with pCO2 of 65, and pO2 of 39, initial glucose of 16, bicarb of 33, lactate WNL, TSH of 0.020 with free T4 of 1.61, lithium level < 0.1, and full respiratory biorfire positive for rhinovirus. CT of the head was negative for acute findings. Chest xray was read as "Cardiomegaly with mild congestive change.". The patient was intially given 1L NSS, a dose of cefepime and vancomycin, and started on a dextrose drip with his persistent hypoglycemia. MRI of the lumbar spine w/wo con was ordered by the ED but will not be able to be obtained for another 3 hours after discussions with MRI. At the time of the exam the patient was sitting in bed in acute distress due to back pain, history was obtained from the patient and his fiance who is sitting bedside. They state that the patient has been dealing with respiratory symptoms including non-productive cough, SOB, and congestion over the past 3 weeks. He is followed [place] [facility] [place] for his panhypopituitarism and DMII. He was recently see in the office by Dr. Voss for persistent hypoglycemia since 11/15. His fiance states that his metformin and lantus has been on hold since the clinic visit on 11/28/23. He has been experiencing dysuria and increased difficulty voiding over the past 3-4 days. Over this time he has also developed fevers, chills, diaphoresis, and significant back pain at the site of his previous lumbar spine surgery. When asked, he states that he has been having multiple episodes of diarrhea over the past 72 hours. He and his fiance confirm that he has been taking his other medications as prescribed including his hydrocortisone. He completed a 6 day course of prednisone taper starting on 11/27 after he was seen in the [facility] ED for his respiratory symptoms. We discussed code status, he clearly states that he wishes to be a DNR/DNI, he would want his fiance to make medical decisions for him if he cannot make them himself. MRI of the lumbar spine w/wo con and CT of the abd/pelvis wo con were obtained prior to admission. MRI of the lumbar w/wo con was read as "1. Stable postoperative findings following L5-S1 posterior decompression, discectomy and fusion. Operative bed increased T2 signal represents expected postsurgical change. 2. No fluid collections within the lumbar spine. No evidence for an acut e infectious process within the lumbar spine by MRI. 3. T2 hyperintensity within the spinous processes of L2, L3 and L4. The MRI appearance is nonspecific but could reflect acute to subacute fractures or bone contusions. Ct of the abd/pelvis wo con was read as "1. No acute process within the abdomen or pelvis on unenhanced exam. 2. No hydronephrosis. Decreased sensitivity for detection of urinary calculi given excreted MR contrast. However, no definite calculi.". Upon further discussions with the patient after his glucose was stable, he states that he had a syncopal episode last night while walking to the kitchen. He states that he felt weak prior to the episode but denies chest pain, dizziness/lightheadedness/vision changes, or other neurologic symptoms prior to the event. He thinks he was out for 1-2 minutes and states that he did not check his glucose after the event. His fiance did not report seeing seizure-like activity after he fell. He states that he fell backwards when he had the episode of syncope and fell backwards into their granite table landing on his back and posterior head. He states that prior to his fall he was having increased chronic back pain from all his recent coughing. After the fall the pain was even worse but he denies new neurologic symptoms. Principal Diagnosis Hypoglycemia secondary to surreptitious insulin injection Discharge Exam The patient is awake, alert and oriented 3, well developed and well nourished, normocephalic and atraumatic, lying in bed and in no acute distress. HEENT--PERRL, EOMI, mucous membranes and oropharynx mildly dry Neck--supple. No JVD. No bruits. Thyroid normal, trachea midline, no adenopathy. Heart--normal S1 and S2. No murmurs, rubs or gallops. Lungs--clear bilaterally, no respiratory distress, no accessory muscle use. Abdomen--normal bowel sounds and soft. Mild epigastric and left sided abdominal pain Extremities--no cyanosis or clubbing. No edema. Dermatologic--normal skin turgor, normal color, no abnormal lymph nodes, no rash. Neurologic--cranial nerves II through XII grossly intact. Rheumatologic--normal range of motion. Psychiatric--normal affect. Discharge Data Allergies Allergy/AdvReac Type Severity Reaction Status Date / Time clindamycin Allergy Intermediate SWELLING Verified 12/02/23 08:45 Iodinated Contrast Media Allergy Intermediate face/eye Verified 12/02/23 08:45 swelling Quinolones Allergy Intermediate HIVES Verified 12/02/23 08:45 Consultations 12/02/23 13:49 ED Decision to Admit Stat 12/02/23 16:42 Consult Endocrinology Routine 12/05/23 09:35 Consult Psychiatry Routine Ordered Studies 12/02/23 10:25 CT head/brain wo con Stat 12/02/23 11:52 MR lumbar spine wo/w con Stat 12/02/23 13:25 CT abd pelvis wo con Stat Hospital Course (1) Hypoglycemia: Most likely due to surreptitious use of insulin as evidenced by his lab work On admission on 12/02/2023 at 10:35 AM laboratory glucose 16 mg/dL, insulin 59.5 IU/mL, C-peptide 0.7 ng/mL; proving unequivocally that he was injecting insulin Patient denied injection of insulin when comforted with this data. Psychiatry was consulted and patient continues to deny. Due to the fact that psychiatry does not have anything to commit him on, he will be discharged. Patient was warned not to continue injecting insulin. Also psychiatry discussed with the spouse. He has been scheduled to follow-up with psychiatry outpatient. (2) Acute CHF: Diastolic. Cardiac echo reveals moderate LVH with normal ejection fraction and 1+ MR. Responding well to parenteral Lasix diuresis. Monitor intake and output. Telemetry. Chest x-ray done today, December 04, looks better (3) Sepsis: Ruled out. Cultures negative. Antibiotics have been discontinued. (4) Syncope and collapse: Probably due to hypoglycemia. Telemetry. 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 Parenteral hydrocortisone has been swi tched back to oral dosing today, December 04 (6) Rhinovirus: Recent positive test results on November 27 and December 02. No intervention necessary at this time (7) Panhypopituitarism: Steroid-dependent. Continue desmopressin, testosterone, thyroid replacement. Thyroid replacement tapered down due to elevated free T4 levels and suppressed TSH. (8) Recurrent seizures: Stable. Continue Depakote and lacosamide (9) Bipolar disorder: Stable. Continue current medical management Plan Anticipate eventual discharge to home within the next day or Total Time Total Time Spent Total Time Spent (In Minutes): 35 Discharge Plan Discharge Items Patient Disposition: Home - Self-Care Reason For Visit: SEPSIS, DIARRHEA, RHINOVIRUS, HYPOGLYCEMIA, ADRENA Discharge Diagnosis: hypoglycemia- surreptitoius use of insulin Activity: Resume your previous activity Non-emergency contact: Primary Care Provider and Psychiatrist Call non-emergency contact if: you have any medication questions Follow-up/Referrals: ProLarry MD [Primary Care Provider] - Diet: Regular Addtl Attending Provider Instructions: Please make appointment to follow-up with a psychiatrist Pending Studies at Discharge: No Stand-Alone Forms: My [facility] [employer], Smoking Cessation Medications and DC Order Prescriptions: Continued lithium carbonate 300 mg tablet 300 mg PO AMHS trazodone 100 mg tablet 100 mg PO HS alfuzosin 10 mg tablet extended release 24 hr 10 mg PO QAM Qty: 90 3RF Rx Instructions: TAKE THIS MED AFTER A MEAL Botox 200 unit recon soln See Rx Instructions IM .COMPLEX Qty: 1 3RF Rx Instructions: 155 UNITS IM IN THE FACE AND NECK MUSCLES EVERY 12 WEEKS PER MIGRAINE PROTOCOL fluticasone propionate [Flonase Allergy Relief] 50 mcg/actuation spray,suspension 1 spray intranasal HS PRN (Reason: allergy symptoms) Qty: 16 0RF Rx Instructions: administer into each nostril Wegovy 0.5 mg/0.5 mL pen injector 0.5 mg subcut Q7D Qty: 2 3RF Hold Instructions: Per patient has been on hold for a few weeks Patient Comments: takes on Sundays > last dose 09/18/23 Rx Instructions: Currently out of stock cholecalciferol (vitamin D3) 50 mcg (2,000 unit) capsule 50 mcg PO QPM Qty: 90 1RF potassium chloride 20 mEq tablet extended release 20 meq PO QAM Qty: 90 1RF Rx Instructions: to take with furosemide dutasteride [Avodart] 0.5 mg capsule 0.5 mg PO QAM Qty: 90 1RF furosemide 20 mg tablet 20 mg PO QAM Qty: 30 1RF desmopressin [DDAVP] 0.1 mg tablet 0.4 mg PO BID Qty: 240 1RF hydrocortisone 10 mg tablet See Rx Instructions PO BID Qty: 135 1RF Rx Instructions: TAKE 20mg IN THE AM AND 10mg IN THE PM. MAY DOUBLE THE DOSE IN TIMES OF STRESS. (DME) insulin syringe-needle U-100 [BD Insulin Syringe Ultra-Fine] 1 mL 30 gauge x 1/2" syringe See Rx Instructions .Route Qty: 300 1RF Rx Instructions: use tid (DME) OneTouch Verio test strips Strip See Rx Instructions .MEDSUPPLY Qty: 150 5RF Rx Instructions: check blood sugars 4 times a day (DME) blood-glucose meter [OneTouch Verio Reflect Meter] Misc See Rx Instructions miscellaneous .MEDSUPPLY Qty: 1 0RF Rx Instructions: As directed (DME) lancets [OneTouch Delica Plus Lancet] 33 gauge misc See Rx Instructions .MEDSUPPLY Qty: 150 5RF Rx Instructions: As directed check blood sugars 4 times a day cyclobenzaprine 10 mg tablet 10 mg PO BID PRN (Reason: muscle spasm) 30 Days Qty: 60 1RF (DME) FreeStyle Rosalie 2 Sensor Kit See Rx Instructions .Route Qty: 6 3RF Rx Instructions: Change every 14 days hydrocodone-acetaminophen 10-325 mg tablet 1 tab PO Q6H PRN (Reason: Pain) ferrous sulfate 325 mg (65 mg iron) tablet 325 mg PO Q OTHER DAY Qty: 45 3RF Rx Instructions: every other day (DME) FreeStyle Rosalie 2 [place] Misc See Rx Instructions .Route Qty: 1 0RF Rx Instructions: Check blood glucose before each meal propranolol 60 mg capsule,extended release 24 hr 60 mg PO DAILY Qty: 30 6RF [place] Thyroid 300 mg tablet 150 mg PO DAILY Qty: 45 3RF testosterone 20.25 mg/1.25 gram (1.62 %) gel in metered-dose pump 2 pump TOP PM Qty: 75 5RF Rx Instructions: apply 1 pump amount over max area of EACH upper arm and shoulder PDMP Queried ok to fill 03/17/2023 DS Baqsimi 3 mg/actuation spray,non-aerosol 3 mg intranasal ONCE Qty: 2 5RF Rx Instructions: for treatment of severe hypoglycemia, second dose may be given if patient does not respond after 15 minutes . Per caregiver, pt has never has to use this medication. (DME) OneTouch Verio test strips Strip See Rx Instructions .Route Rx Instructions: Test blood sugar two times daily Rexulti 3 mg tablet 3 mg PO QAM duloxetine 30 mg capsule,delayed release(DR/EC) 30 mg PO HS mirtazapine [Remeron] 30 mg tablet 30 mg PO HS celecoxib 200 mg capsule 200 mg PO DAILY PRN (Reason: Pain) metformin 1,000 mg tablet 0 mg PO BID Hold Instructions: Per Dr Voss to hold as of 11/23/22 Rx Instructions: Per Dr Voss: to hold as of 11/23/22: Original directions: 1000mg by mouth twice daily ibuprofen [Advil] 200 mg tablet 400 mg PO Q6H PRN (Reason: Pain) Nurtec ODT 75 mg tablet,disintegrating 75 mg PO DAILY PRN (Reason: Migraine Headache) Qty: 8 6RF divalproex 500 mg tablet,delayed release (DR/EC) 1,000 mg PO BID 30 Days Qty: 120 6RF lacosamide 150 mg tablet 150 mg PO BID Qty: 60 5RF prazosin [Minipress] 5 mg capsule 5 mg PO HS duloxetine 60 mg capsule,delayed release(DR/EC) 60 mg PO QAM insulin glargine [Lantus Solostar U-100 Insulin] 100 unit/mL (3 mL) Insulin Pen 0 unit SUBCUT PM Hold Instructions: Has been on hold for a few weeks per pt Rx Instructions: Has been on hold for a few weeks per pt's fianc' due to patient's blood glucose levels being low. Original directions: 12units once in the evening lisinopril 5 mg tablet 5 mg PO QAM oxybutynin chloride 5 mg tablet extended release 24hr 5 mg PO QAM somatropin 12 mg/mL (36 unit/mL) cartridge 0 mg subcut DAILY Rx Instructions: Unable to verify medication with patient/caregiver: Original directions: 0.3mg sq daily: dispose of cartridge after 21 days. levothyroxine 200 mcg tablet 0 mcg PO QAM Rx Instructions: Home medication placed on hold at Doctor's office: Original directions: 200mcg by mouth qam Norditropin FlexPro 5 mg/1.5 mL (3.3 mg/mL) pen injector 0 mg SQ PM Rx Instructions: Unable to verify medication with patient/caregiver: Original directions: 0.3mg sq pm acetaminophen 325 mg Tablet 650 mg PO Q6H PRN (Reason: pain) Qty: 30 0RF oxybutynin chloride 5 mg tablet 5 mg PO Q8H PRN (Reason: bladder spasms) Qty: 20 0RF docusate sodium [Colace] 100 mg capsule 100 mg PO BID PRN (Reason: Constipation) Rx Instructions: Take twice daily for 2 weeks, then as needed for constipation. rosuvastatin 20 mg tablet 20 mg PO QAM lorazepam 0.5 mg Tablet 0.5 mg PO DAILY PRN (Reason: Seizure Activity) pantoprazole 40 mg tablet,delayed release (DR/EC) 40 mg PO BID Qty: 60 5RF albuterol sulfate [Ventolin HFA] 90 mcg/actuation HFA aerosol inhaler 3 inh inhalation Q6H PRN (Reason: shortness of breath or wheezing) Qty: 6.7 0RF Discharge Orders: Discharge Order (Routine); Ordered 12/05/23 Ordered By: Stas Bartlett Admission Data Admit Date/Time: 12/02/23 15:57 Attending Provider: Stas Bartlett Admit Provider: Trenton Carney Primary Care Provider: Larry Amaral Other Providers: Trenton Carney; Martínez Voss; Wendy Trinh; Rachael Ceron; Keon Garcia; Bryce Henley Coding Level of Care Code 56542 INP/OBS DISCH >30 MIN Diagnoses Hypoglycemia E16.2 Acute CHF I50.9 Sepsis A41.9 Syncope and collapse R55 Secondary adrenal insufficiency E27.49 Rhinovirus B34.8 Panhypopituitarism E23.0 Recurrent seizures G40.909 Bipolar disorder F31.9 Time Spent (min) 35
[2023-12-05] MEDS: HYDROcodone/ACETAMINOPHEN 10/325 TAB PO PRN (13:37)
--- NOTE | 2023-12-05 14:13 | Psychiatric Consultation ---
Date of Consultation December 05, 2023 Impression / Recommendations Impression 53 yo male with hx of bipolar and PTSD, seen s/p hypoglycemia/seizure with hospitalist service/endocrinology confirming surreptitious insulin use. Neither he or partner identify SI or safety concerns and deny access. High risk given status, access to polypharmacy (mitigated as able with blister packs), 2 prior OD attempts (the latter just last month). Patient discharged prior to additional follow up with service but aftercare was already in place for 12/06/23. (1) Bipolar disorder: Plan limit quantities of prescriptions dispensed at a time for patient as an ongoing risk mitigation monitor for other causes of surreptitious use other than intentional self harm--ie. malingering (such as to induce seizure to assist with disability claim, etc). He did not present as a typical patient seeking sick role (factitious disorder). as patient was discharged precipitiously and brief medical stay not best place to explore trauma, I suppose differential should also include use within the context of a dissociative flashback, defer to outpatient clinicians. CPT Code Overall, I spent a total of 68 minutes with this case, including review of chart, review of records, direct evaluation of the patient, counseling the patient, coordination with nursing,coordination of care with hospitalist service, and documentation. Psych History Identifying Data Mr. Leiva is a 53 [address] [facility] with established dx of bipolar disorder and PTSD. He resides with his finace in [facility]. Chief Complaint surreptitious insulin use History of Present Illness Consult received, chart reviewed, patient pleasant and meeting with liaison at bedside. Chart review reveals previous liaison consult for risk assessment given his chronic health issues and 09/10 inpatient psych hospitalization (outside) and reported Dec 2021 OD. At that time he was seeing his current providers ([facility] and Juliet Bledsoe). He has also received some EMDR for combat related PTSD and stated he is service connected but hasn't participated in any residual programming. Recent notes from [facility] 11/12 reveal that he was hospitalized up to 1 month ago following a significant hydrocodone and propranolol OD (40 tabs opiate, 11 beta benjamín) within a few days of his father's . As per liaison consult: Met with patient for consult service this morning. Patient resting in bed, bright affect, calm and appropriate. Patient has a history of bipolar disorder and PTSD. He is a [employer] . Patient was inpatient for psychiatric treatment in October @ [facility], for intentional overdose. Patient reports feeling "on top of things and feeling much better". He reports having psychiatric follow up with [facility] and has talk therapy weekly with Juliet Bledsoe. Discussed medication regimen, he reports having bubble packed medications, pre packaged for daily use d/t polypharmacy and to promote compliance. He reports his Metformin is still in his packages d/t the recent change, he does forget to remove the metformin at times. He denies having any access to insulin at home, Lantus was removed by his fiwang (Alana). Patient denies having any thoughts of SI or wishes. He feels supported by [facility] and outpatient providers. Patient gives permission to speak with Alana cisse, for collateral information. This afternoon, noted that patient was ordered to be discharged. Call placed to Alana Fong. Alana had just picked up patient and they were en route to home. Alana denies any safety concerns, including medication safety. Case reviewed with Dr. Bartlett who confirmed both she and endocrinology have confronted patient re: markedly elevated insulin level despite his normal C peptide (marker of endogenous insulin) which means he has been taking exogenous insulin. Both he and his fiance deny access to insulin (no lantus in house), only admit to taking metformin though d/c as already in blister packs and sometimes doesn't discard. He continues to deny SI/misuse of medications and appears bright and future focussed with regards to interviewing new psychiatrist tomorrow and his weekly sessions with Dr. Bledsoe. He is well aware of his multiple risk factors for suicide, including health issues, PTSD, and likely ongoing access to guns. Reviewed with hospitalist that we would contact [facility] directly for additional collateral in case additional safety planning was needed but that currently no criteria for a 302 as not manic, psychotic, and denying SI. Dr. Bartlett ordered discharge/patient left but [facility] was reachable by phone as above. Allergies Allergy/AdvReac Type Severity Reaction Status Date / Time clindamycin Allergy Intermediate SWELLING Verified 12/02/23 08:45 Iodinated Contrast Media Allergy Intermediate face/eye Verified 12/02/23 08:45 swelling Quinolones Allergy Intermediate HIVES Verified 12/02/23 08:45 Home Medications Medication Instructions Recorded Confirmed Type cyclobenzaprine 10 mg tablet 10 mg PO BID PRN muscle spasm 30 09/18/20 12/02/23 Rx days #60 tabs acetaminophen 325 mg tablet 650 mg (2 x 325 mg) PO Q6H PRN 03/01/22 12/02/23 Rx pain #30 tabs lithium carbonate 300 mg tablet 300 mg PO AMHS 06/04/22 12/02/23 History trazodone 100 mg tablet 100 mg PO HS 06/04/22 12/02/23 History brexpiprazole 3 mg tablet (Rexulti) 3 mg PO QAM 06/23/22 12/02/23 History celecoxib 200 mg capsule 200 mg PO DAILY PRN Pain 06/23/22 12/02/23 History duloxetine 30 mg capsule,delayed 30 mg PO HS 06/23/22 12/02/23 History release mirtazapine 30 mg tablet (Remeron) 30 mg PO HS 06/23/22 12/02/23 History alfuzosin 10 mg tablet,extended 10 mg PO QAM #90 tabs 08/05/22 12/02/23 Rx release 24 hr blood sugar diagnostic (OneTouch 08/06/22 12/02/23 History Verio test strips) duloxetine 60 mg capsule,delayed 60 mg PO QAM 11/09/22 12/02/23 History release prazosin 5 mg capsule (Minipress) 5 mg PO HS 11/09/22 12/02/23 History oxybutynin chloride 5 mg tablet 5 mg PO Q8H PRN bladder spasms #20 12/06/22 12/02/23 Rx tabs docusate sodium 100 mg capsule 100 mg PO BID PRN Constipation 12/27/22 12/02/23 History (Colace) onabotulinumtoxinA 200 unit See Rx Instructions IM .COMPLEX #1 12/28/22 12/02/23 Rx solution for injection (Botox) ea ibuprofen 200 mg tablet (Advil) 400 mg PO Q6H PRN Pain 02/21/23 12/02/23 History fluticasone propionate 50 1 spray intranasal HS PRN allergy 03/16/23 12/02/23 Rx mcg/actuation nasal symptoms #16 grams spray,suspension (Flonase Allergy Relief) FreeStyle Rosalie 2 [place] (flash #1 ea 05/13/23 12/02/23 Rx glucose scanning reader) metformin 1,000 mg tablet 0 mg PO BID 05/23/23 12/02/23 History insulin glargine 100 unit/mL (3 0 unit subcut PM 06/04/23 12/02/23 History mL) subcutaneous pen (Lantus Solostar U-100 Insulin) lisinopril 5 mg tablet 5 mg PO QAM 06/04/23 12/02/23 History semaglutide (weight loss) 0.5 0.5 mg (0.5 mL) subcut Q7D #2 mL 06/17/23 12/02/23 Rx mg/0.5 mL subcutaneous pen injector (Gerardo) FreeStyle Rosalie 2 Sensor (flash #6 ea 06/24/23 12/02/23 Rx glucose sensor) ferrous sulfate 325 mg (65 mg 325 mg PO Q OTHER DAY #45 tabs 08/03/23 12/02/23 Rx iron) tablet hydrocodone 10 mg-acetaminophen 1 tab PO Q6H PRN Pain 08/03/23 12/02/23 History 325 mg tablet cholecalciferol (vitamin D3) 50 50 mcg PO QPM #90 caps 08/29/23 12/02/23 Rx mcg (2,000 unit) capsule potassium chloride 20 mEq 20 meq PO QAM #90 tabs 08/30/23 12/02/23 Rx tablet,extended release divalproex 500 mg tablet,delayed 1,000 mg (2 x 500 mg) PO BID 30 09/14/23 12/02/23 Rx release days #120 tabs lacosamide 150 mg tablet 150 mg PO BID #60 tabs 09/14/23 12/02/23 Rx rimegepant 75 mg disintegrating 75 mg PO DAILY PRN Migraine 09/14/23 12/02/23 Rx tablet (Nurtec ODT) Headache #8 tabs lorazepam 0.5 mg tablet 0.5 mg PO DAILY PRN Seizure 09/19/23 12/02/23 History Activity rosuvastatin 20 mg tablet 20 mg PO QAM 09/19/23 12/02/23 History pantoprazole 40 mg tablet,delayed 40 mg PO BID #60 tabs 09/28/23 12/02/23 Rx release dutasteride 0.5 mg capsule 0.5 mg PO QAM #90 caps 09/30/23 12/02/23 Rx (Avodart) propranolol 60 mg capsule,24 60 mg PO DAILY #30 caps 10/10/23 12/02/23 Rx hr,extended release furosemide 20 mg tablet 20 mg PO QAM #30 tabs 10/21/23 12/02/23 Rx desmopressin 0.1 mg tablet (DDAVP) 0.4 mg (4 x 0.1 mg) PO BID #240 10/27/23 12/02/23 Rx tabs hydrocortisone 10 mg tablet See Rx Instructions PO BID #135 10/27/23 12/02/23 Rx tabs testosterone 2 pump topical PM #75 grams 11/09/23 12/02/23 Rx thyroid (pork) 300 mg tablet 150 mg (1/2 x 300 mg) PO DAILY #45 11/09/23 12/02/23 Rx (Cantrall Thyroid) tabs blood sugar diagnostic (FeastTouch #150 ea 11/22/23 12/02/23 Rx Verio test strips) blood-glucose meter (FeastTouch #1 ea 11/22/23 12/02/23 Rx Verio Reflect Meter) insulin syringe-needle U-100 1 mL #300 ea 11/22/23 12/02/23 Rx 30 gauge x 1/2" (BD Insulin Syringe Ultra-Fine) lancets 33 gauge (OneTouch Delica #150 ea 11/22/23 12/02/23 Rx Plus Lancet) albuterol sulfate 90 mcg/actuation 3 inh inhalation Q6H PRN shortness 11/27/23 12/02/23 Rx aerosol inhaler (Ventolin HFA) of breath or wheezing #6.7 grams glucagon 3 mg/actuation nasal 3 mg intranasal ONCE #2 ea 11/28/23 12/02/23 Rx spray (Baqsimi) levothyroxine 200 mcg tablet 0 mcg PO QAM 12/02/23 12/02/23 History oxybutynin chloride 5 mg 5 mg PO QAM 12/02/23 12/02/23 History tablet,extended release 24 hr somatropin 12 mg/mL (36 unit/mL) 0 mg subcut DAILY 12/02/23 12/02/23 History subcutaneous cartridge somatropin 5 mg/1.5 mL (3.3 mg/mL) 0 mg subcut PM 12/02/23 12/02/23 History subcutaneous pen injector (Norditropin FlexPro) Patient History Medical History Hyperactive gag reflex BRCA gene positive tested positive in Aug 2023 [place] > reason for up coming EGD Family history of BRCA gene mutation PTSD (post-traumatic stress disorder) Epidural lipomatosis Chronic left sacroiliac pain Benzodiazepine overdose none since Nov 2022 Presence of cardiac device Loop recorder > last checked fall 2022 Hx of fracture of foot Sep 2022- right > cast since removed > still gets painful Fracture of fibula, right, closed Cerebral concussion May 2023 during seizure > no further issues Orthostatic hypotension Pseudoseizures Sensorineural hearing loss of both ears Rectal bleeding on occasion History of COVID-19 10/2021 - fatigue; resolved. Mitral valve regurgitation follows with Dr. Jacqueline Rubio Acute kidney injury September 2022 (s/p grand mal seizure) Panhypopituitarism Lower extremity edema Elevated LFTs Bilateral hand pain Pituitary neoplasm Dx'ed in 2001- s/p surgical resection and XRT Repeat surgery in 2018 secondary to tumor regrowth at [facility] Kidney stones HX Prostate mass benign Bladder mass benign Obstructive sleep apnea of adult cpap > non compliant per pt Surgical History S/P TURP (status post transurethral resection of prostate) [place] [facility] [place] History of cardiac cath 07/2021 - no stents S/P epidural steroid injection History of lithotripsy Status post right foot surgery replaced 5th metatarsal--hardware in place History of bladder surgery remove mass History of prostate surgery remove mass History of colonoscopy History of esophagogastroduodenoscopy (EGD) History of tooth extraction History of wisdom tooth extraction History of brain surgery x2---[place] @ [facility] [place] @ [facility]--for brain tumors > caused epilepsy Family History Grandmother (Paternal) Family history of diabetes mellitus Aunt Family history of diabetes mellitus Uncle Family history of diabetes mellitus Father Prostate cancer Heart disease Mother Cardiac disorder Grandmother (Maternal) Myocardial infarction Other Asthma Cancer Hypertension No family history of adverse response to anesthesia No family history of bleeding disorder Stroke Denies family history of Ovarian cancer Breast cancer Colorectal cancer Social History Smoking Status: Never smoker Tobacco Type: Smokeless Tobacco (Dip or Chew) Second Hand Exposure: No; Do You Dip or Chew Tobacco: Yes; Hx Alcohol Use: No Hx Substance Use: No Preferred Language: Eritrean Communication Ability: Effective Communication Ability Comment: Unable to obtain due to patient condition. Visual Impairment: No Limitations Hearing Ability: Normal Edge Inker Required: No Beliefs That Will Affect Care: None marital status: Single Current Living Situation: Significant Other current occupational status: unemployed Feels Safe at Home: Yes Childhood Exposure to Second-Hand Smoke: Yes (parents smoked) Seatbelt Use: always Assistive Devices: None Physical Exam Psychiatric: Orientation: alert and oriented x 3 Apperance: appropriately dressed and appropriately groomed Eye Contact: good eye contact Motor Behavior: no abnormal motor movements Speech: normal rate/rhythm/volume of speech Affect: euthymic affect Mood: no depressed mood Thought Process: goal directed thought process Thought Content: reality based without delusions Suicidal Thoughts: denies suicidal thoughts Homicidal Thoughts: denies homicidal thoughts Hallucinations: no auditory hallucinations and no visual hallucinations Cognition: attention grossly intact and language grossly intact Estimated Intelligence: consistent with education level Insight: + limited insight Judgment: + limited judgement Vital Signs (Past 24 Hours): Last Vital Signs Temp 36.4 C L 12/05/23 13:14 Pulse 98 H 12/05/23 13:14 Resp 18 12/05/23 13:14 BP 128/80 12/05/23 13:14 Pulse Ox 94 12/05/23 13:14 O2 Del Method Room Air 12/05/23 11:11 O2 Flow Rate 1 12/04/23 11:33 Review of Systems All systems reviewed & are unremarkable except as noted in HPI & below Results & Data (PSY) Laboratory Results 12/05/23 12/05/23 12/05/23 Range/Units 11:04 07:18 06:31 WBC 11.12 H (4.8-10.8) K/ul RBC 4.25 L (4.70-6.10) M/uL Hgb 12.6 L (14.0-18.0) g/dl Hct 37.8 L (42.0-52.0) % MCV 88.9 (80.0-100.0) fL MCH 29.6 (25.0-34.0) pg MCHC 33.3 (32.0-36.0) g/dL RDW Std Deviation 45.1 (36.4-46.3) fL RDW Coeff of Yanira 14.0 (11.5-14.5) % Plt Count 186 (130-400) K/uL MPV 8.4 L (9.4-12.4) fL Immature Gran % (Auto) 8.4 % Neut % (Auto) 58.8 % Lymph % (Auto) 25.2 % Humphreys % (Auto) 7.1 % Eos % (Auto) 0.4 % Baso % (Auto) 0.1 % Neut # (Auto) 6.55 H (1.40-6.50) K/uL Lymph # (Auto) 2.80 (1.20-3.40) K/uL Humphreys # (Auto) 0.79 H (0.11-0.59) K/uL Eos # (Auto) 0.04 (0.00-0.50) K/uL Baso # (Auto) 0.01 (0.00-0.20) K/uL Immature Gran # (Auto) 0.93 H (0.01-0.20) K/uL Absolute Nucleated RBC 0.05 (0.00-0.12) K/uL Nucleated RBC % (auto) 0.4 % Sodium 141 (136-145) mmol/L Potassium 3.5 (3.5-5.1) mmol/L Chloride 101 (98-107) mmol/L Carbon Dioxide 35 H (21-32) mmol/L Anion Gap 5 (3-11) BUN 19 (6-23) mg/dl Creatinine 0.83 (0.6-1.4) mg/dl Est Cr Clr Drug Dosing 117.7 ml/min Est GFR ( Amer) 114.8 ml/min Est GFR (Non-Af Amer) 99.1 ml/min BUN/Creatinine Ratio 22.9 H (10-20) Glucose 139 H (70-99(Fasting)) mg/dl POC Glucose 199 H 111 H (70-99) mg/dl Fasting Insulin uIU/mL Calcium 8.7 (8.6-10.3) mg/dl 12/05/23 12/05/23 12/04/23 Range/Units 03:11 00:03 20:06 WBC (4.8-10.8) K/ul RBC (4.70-6.10) M/uL Hgb (14.0-18.0) g/dl Hct (42.0-52.0) % MCV (80.0-100.0) fL MCH (25.0-34.0) pg MCHC (32.0-36.0) g/dL RDW Std Deviation (36.4-46.3) fL RDW Coeff of Yanira (11.5-14.5) % Plt Count (130-400) K/uL MPV (9.4-12.4) fL Immature Gran % (Auto) % Neut % (Auto) % Lymph % (Auto) % Humphreys % (Auto) % Eos % (Auto) % Baso % (Auto) % Neut # (Auto) (1.40-6.50) K/uL Lymph # (Auto) (1.20-3.40) K/uL Humphreys # (Auto) (0.11-0.59) K/uL Eos # (Auto) (0.00-0.50) K/uL Baso # (Auto) (0.00-0.20) K/uL Immature Gran # (Auto) (0.01-0.20) K/uL Absolute Nucleated RBC (0.00-0.12) K/uL Nucleated RBC % (auto) % Sodium (136-145) mmol/L Potassium (3.5-5.1) mmol/L Chloride (98-107) mmol/L Carbon Dioxide (21-32) mmol/L Anion Gap (3-11) BUN (6-23) mg/dl Creatinine (0.6-1.4) mg/dl Est Cr Clr Drug Dosing ml/min Est GFR ( Amer) ml/min Est GFR (Non-Af Amer) ml/min BUN/Creatinine Ratio (10-20) Glucose (70-99(Fasting)) mg/dl POC Glucose 218 H 216 H 156 H (70-99) mg/dl Fasting Insulin uIU/mL Calcium (8.6-10.3) mg/dl 12/04/23 12/02/23 Range/Units 16:03 10:35 WBC (4.8-10.8) K/ul RBC (4.70-6.10) M/uL Hgb (14.0-18.0) g/dl Hct (42.0-52.0) % MCV (80.0-100.0) fL MCH (25.0-34.0) pg MCHC (32.0-36.0) g/dL RDW Std Deviation (36.4-46.3) fL RDW Coeff of Yanira (11.5-14.5) % Plt Count (130-400) K/uL MPV (9.4-12.4) fL Immature Gran % (Auto) % Neut % (Auto) % Lymph % (Auto) % Humphreys % (Auto) % Eos % (Auto) % Baso % (Auto) % Neut # (Auto) (1.40-6.50) K/uL Lymph # (Auto) (1.20-3.40) K/uL Humphreys # (Auto) (0.11-0.59) K/uL Eos # (Auto) (0.00-0.50) K/uL Baso # (Auto) (0.00-0.20) K/uL Immature Gran # (Auto) (0.01-0.20) K/uL Absolute Nucleated RBC (0.00-0.12) K/uL Nucleated RBC % (auto) % Sodium (136-145) mmol/L Potassium (3.5-5.1) mmol/L Chloride (98-107) mmol/L Carbon Dioxide (21-32) mmol/L Anion Gap (3-11) BUN (6-23) mg/dl Creatinine (0.6-1.4) mg/dl Est Cr Clr Drug Dosing ml/min Est GFR ( Amer) ml/min Est GFR (Non-Af Amer) ml/min BUN/Creatinine Ratio (10-20) Glucose (70-99(Fasting)) mg/dl POC Glucose 160 H (70-99) mg/dl Fasting Insulin 59.5 H uIU/mL Calcium (8.6-10.3) mg/dl Coding Level of Care Code 62374 [facility] Lvl 2 Diagnoses Bipolar disorder F31.9
== END 2023-12-05 13:50 | disposition home or self-care (01) ==
LOC: ED 09:36 → SUATTDRO 15:57 → INTOOBSV 15:57 → EDINP 15:57 → 2S 16:38

== ENCOUNTER 2024-04-06 10:46 | Observation (INO) ==
--- NOTE | 2024-04-06 11:01 | Emergency Department Note ---
Impression & Plan Shortness of breath, Chest pain, Breathlessness on exertion, Pitting edema ED Provider Note NAME: LINSEY VIRAMONTES Jr AGE: 53 SEX: M : 1970 ARRIVES VIA: Ambulance INFORMANT: Patient ED PROVIDER(S): James Estrada DO CHIEF COMPLAINT: shortness of breath HPI: Patient is a 53-year-old male with a past medical history of A-fib with a recently placed Watchman, adrenal insufficiency, pituitary diabetes, sepsis, nonocclusive CAD, mitral regurg who presents to the ER for shortness of breath which has been present for the past 10 days getting worse. She admits to increased edema in the lower extremities as well as weight gain of fives pounds in the past week. He has a loop recorder and a watchman placed at [place]. He was given aspirin and 2 sprays of nitro prior to arrival via EMS. He has had persistent chest pain for the past 3 days. Does not change with exertion. Shortness of breath is significantly worse with any movement. Denies any belly pain, nausea, vomiting or diarrhea. No dysuria, urgency or frequency. ADDITIONAL HISTORY OBTAINED: Per HPI Chronic Medical/Social Conditions Affecting Care: Per HPI PAST MEDICAL HISTORY:See Below PAST SURGICAL HISTORY:See Below FAMILY HISTORY:See Below SOCIAL HISTORY:See Below HOME MEDICATIONS:See Below ALLERGIES:See Below VITALS:See Below PHYSICAL EXAMINATION: GENERAL: Sitting up in bed, alert, dyspneic with conversation EYE EXAM: normal conjunctiva. PERRL and EOM's grossly intact. OROPHARYNX: no exudate, no erythema, lips, buccal mucosa, and tongue normal and mucous membranes are moist NECK: supple, no nuchal rigidity, no adenopathy, non-tender LUNGS: Clear to auscultation. Normal chest wall mechanics HEART: no murmurs, S1 normal and S2 normal ABDOMEN: abdomen soft, non-tender, normo-active bowel sounds, no masses, no rebound or guarding. UPPER EXTREMITIES: upper extremities are grossly normal. LOWER EXTREMITIES: Significant pitting edema in bilateral lower extremities taking up to the thighs NEURO EXAM: Normal sensorium, cranial nerves II-XII grossly intact, normal speech, no gross weakness of arms, no gross weakness of legs. No drift. Finger to nose intact. Gross sensation intact. MEDICAL DECISION MAKING: Patient is a 53-year-old male who presents ER for the above-stated complaint. IV was established blood work was obtained. Labs show no significant leukocytosis or anemia. BMP with slightly elevated glucose at 193. LFTs bilirubin was unremarkable. Troponin was negative. proBNP was unremarkable. He does have pitting edema on exam but was significantly dyspneic upon arrival. UA was clean. Chest x-ray was clean. EKG nondiagnostic. He was updated at bedside with his negative troponin do not feel this consistent with ACS as he has had chest pain for the past 2 to 3 days fairly persistently. Patient was updated bedside. Discussed case with the hospitalist for further evaluation management treatment of the diffuse peripheral aggressive pitting edema in combination with the chest pain and shortness of breath. Consults/Care Managements Discussions: Per MDM Triage Nursing notes reviewed. Limited review of prior medical records performed Vital Signs: reviewed and remarkable for no significant abnormalities Differential diagnosis: Differential diagnoses includes but is not limited to pneumonia, bronchitis, COPD/Asthma exacerbation, pneumothorax, pulmonary embolism, congestive heart failure, acute coronary syndrome ER treatment provided: See below Diagnostics interpreted by me include EKG and cardiac monitoring as listed below: -Cardiac Monitoring: An order was placed for continuous cardiac monitoring. The monitor shows a rate of 101 with sinus rhythm. -ECG: Sinus rhythm rate of 97 Normal axis No PVCs QTc 421 -Laboratory studies:Interpreted by me as stated above in MDM and shown below. Imaging studies: Xrays: As interpreted by me: Portable AP upright 1 view of the chest shows no focal infiltrate CTs show: none Procedures:none Critical Care: None Past Med/Surg History Problem List (Updated 04/06/24 @ 14:04 by Trenton Carney MD) Shortness of breath on exertion Peripheral edema Chest pain (Acute) Acute dyspnea (Acute) Atrial fibrillation Acute CHF Hypertension (Acute) Leukocytosis (Acute) Rhinovirus Sepsis Secondary adrenal insufficiency Pituitary diabetes insipidus Follows with endocrinology- on DDAVP Pituitary hypogonadism Follows with endocrinology- Pituitary hypothyroidism Follows with endocrinology- Non-occlusive coronary artery disease Lumbar stenosis with neurogenic claudication Hypoglycemia Recurrent seizures (Acute) Esophageal dysphagia Anxiety (Chronic) Mitral regurgitation Essential tremor Paresthesia Internal hemorrhoids Idiopathic polyneuropathy Lumbosacral radiculopathy Panhypopituitarism (Acute) Arachnoid cyst of posterior cranial fossa Obstructive sleep apnea Mixed hyperlipidemia Ulcerative colitis Anemia Bipolar disorder (11/21/22) Chronic migraine without aura or status migrainosus Uncontrolled type 2 diabetes mellitus with hyperglycemia Suspect low glycation index meaning his A1c is typically about 2 points lower than what his average glucose would suggest. Chronic low back pain Current use of proton pump inhibitor Severe obesity (BMI 35.0-35.9 with comorbidity) 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 Growth hormone deficiency Depression BPH with obstruction/lower urinary tract symptoms Syncope and collapse (Acute) Reason for loop recorder No recent issues since bed bound from femur fracture in Sep 2022 per patient Medical History Spondylolysis, lumbar region Seizure disorder (02/15/24) Seizure disorder Right lumbar radiculopathy PTSD (post-traumatic stress disorder) HTN (hypertension) (02/18/24) HTN (hypertension) Epidural lipomatosis Chronic left sacroiliac pain Bipolar disorder Atrial fibrillation (02/15/24) Adrenal insufficiency Pituitary adenoma Diabetes Bleeding (02/16/24) Acute blood loss anemia (02/19/24) Hyperactive gag reflex BRCA gene positive Family history of BRCA gene mutation PTSD (post-traumatic stress disorder) Epidural lipomatosis Chronic left sacroiliac pain Benzodiazepine overdose Presence of cardiac device Hx of fracture of foot Fracture of fibula, right, closed Cerebral concussion Orthostatic hypotension Pseudoseizures Sensorineural hearing loss of both ears Rectal bleeding History of COVID-19 Mitral valve regurgitation Vertigo Acute kidney injury Panhypopituitarism Lower extremity edema Elevated LFTs Bilateral hand pain Pituitary neoplasm Kidney stones Prostate mass Bladder mass Obstructive sleep apnea of adult Surgical History S/P TURP (status post transurethral resection of prostate) History of lumbar fusion History of cardiac cath S/P epidural steroid injection History of lithotripsy Status post right foot surgery History of bladder surgery History of prostate surgery History of colonoscopy History of esophagogastroduodenoscopy (EGD) History of tooth extraction History of wisdom tooth extraction History of brain surgery Family History Grandmother (Paternal) Family history of diabetes mellitus Aunt Family history of diabetes mellitus Uncle Family history of diabetes mellitus Father Prostate cancer Heart disease Mother Cardiac disorder Grandmother (Maternal) Myocardial infarction Other Asthma Cancer Hypertension No family history of adverse response to anesthesia No family history of bleeding disorder Stroke Denies family history of Ovarian cancer Breast cancer Colorectal cancer Social History Smoking Status: Never smoker Tobacco Type: Smokeless Tobacco (Dip or Chew) Second Hand Exposure: No; Do You Dip or Chew Tobacco: Yes; Hx Alcohol Use: No Hx Substance Use: No Preferred Language: [place] Communication Ability: Effective Communication Ability Comment: Unable to obtain due to patient condition. Visual Impairment: Limited Hearing Ability: Normal Small Business Consultant Required: No Beliefs That Will Affect Care: None marital status: Single Current Living Situation: Significant Other current occupational status: disabled How many Children do You have: 3 Feels Safe at Home: Yes Childhood Exposure to Second-Hand Smoke: Yes (parents smoked) Diet: regular Diet Comment: going to be starting low carb/low calorie diet. caffeine: No (1/2 20 oz bottle of mountain dew. ) during the past year weight has: increased > 10 lbs Physical Activity Frequency: Daily Physical Activity Frequency Comment: walking, 1.5 miles daily. Seatbelt Use: always Gender Identity: Male Assistive Devices: Cane, CPAP and Glasses Allergies Allergies Allergy/AdvReac Type Severity Reaction Status Date / Time clindamycin Allergy Intermediate SWELLING Verified 04/06/24 12:22 Iodinated Contrast Media Allergy Intermediate face/eye Verified 04/06/24 12:22 swelling Quinolones Allergy Intermediate HIVES Verified 04/06/24 12:22 Home Meds Home Medications Medication Instructions Recorded Confirmed lithium carbonate 300 mg tablet 300 mg PO AMHS 06/04/22 04/06/24 brexpiprazole 3 mg tablet (Rexulti) 3 mg PO QAM 06/23/22 04/06/24 celecoxib 200 mg capsule 200 mg PO DAILY PRN Pain 06/23/22 04/06/24 duloxetine 30 mg capsule,delayed 30 mg PO HS 06/23/22 04/06/24 release mirtazapine 30 mg tablet (Remeron) See Rx Instructions .Route .COMPLEX 06/23/22 04/06/24 blood sugar diagnostic (OneTouch 08/06/22 04/06/24 Verio test strips) duloxetine 60 mg capsule,delayed 60 mg PO QAM 11/09/22 04/06/24 release prazosin 5 mg capsule (Minipress) 5 mg PO HS 11/09/22 04/06/24 docusate sodium 100 mg capsule 100 mg PO BID PRN Constipation 12/27/22 04/06/24 (Colace) ibuprofen 200 mg tablet (Advil) 400 mg PO Q6H PRN Pain 02/21/23 04/06/24 hydrocodone 10 mg-acetaminophen 1 tab PO Q6H PRN Pain 08/03/23 04/06/24 325 mg tablet lorazepam 0.5 mg tablet 0.5 mg PO DAILY PRN Seizure 09/19/23 04/06/24 Activity rosuvastatin 20 mg tablet 20 mg PO QAM 09/19/23 04/06/24 mirtazapine 15 mg tablet (Remeron) See Rx Instructions .Route .COMPLEX 12/30/23 04/06/24 ferrous sulfate 325 mg (65 mg 325 mg PO QAM 02/20/24 04/06/24 iron) tablet lisinopril 10 mg tablet 20 mg PO QAM 02/24/24 04/06/24 insulin glargine 100 unit/mL (3 14 unit subcut HS 04/02/24 04/06/24 mL) subcutaneous pen (Lantus Solostar U-100 Insulin) amlodipine 5 mg tablet 5 mg PO QAM 04/06/24 04/06/24 aspirin 81 mg tablet,delayed 81 mg PO QAM 04/06/24 04/06/24 release clopidogrel 75 mg tablet 75 mg PO QPM 04/06/24 04/06/24 dutasteride 0.5 mg capsule 0.5 mg PO QAM 04/06/24 04/06/24 glucagon 3 mg/actuation nasal 3 mg intranasal ONCE PRN Severe 04/06/24 04/06/24 spray (Baqsimi) Hypoglycemia onabotulinumtoxinA 200 unit 155 unit IM UD 04/06/24 04/06/24 solution for injection (Botox) oxybutynin chloride 5 mg tablet 5 mg PO HS PRN bladder spasms 04/06/24 04/06/24 propranolol 60 mg capsule,24 60 mg PO HS 04/06/24 04/06/24 hr,extended release Previous Rx's Medication Instructions Recorded cyclobenzaprine 10 mg tablet 10 mg PO BID PRN muscle spasm 30 09/18/20 days #60 tabs acetaminophen 325 mg tablet 650 mg (2 x 325 mg) PO Q6H PRN 03/01/22 pain #30 tabs alfuzosin 10 mg tablet,extended 10 mg PO QAM #90 tabs 08/05/22 release 24 hr fluticasone propionate 50 1 spray intranasal HS PRN allergy 03/16/23 mcg/actuation nasal symptoms #16 grams spray,suspension (Flonase Allergy Relief) FreeStyle Rosalie 2 [place] (flash #1 ea 05/13/23 glucose scanning reader) FreeStyle Rosalie 2 Sensor (flash #6 ea 06/24/23 glucose sensor) divalproex 500 mg tablet,delayed 1,000 mg (2 x 500 mg) PO BID 30 09/14/23 release days #120 tabs rimegepant 75 mg disintegrating 75 mg PO DAILY PRN Migraine 09/14/23 tablet (Nurtec ODT) Headache #8 tabs testosterone 2 pump topical PM #75 grams 11/09/23 blood sugar diagnostic (OneTouch #150 ea 11/22/23 Verio test strips) blood-glucose meter (OneTouch #1 ea 11/22/23 Verio Reflect Meter) insulin syringe-needle U-100 1 mL #300 ea 11/22/23 30 gauge x 1/2" (BD Insulin Syringe Ultra-Fine) lancets 33 gauge (OneTouch Delica #150 ea 11/22/23 Plus Lancet) desmopressin 0.1 mg tablet (DDAVP) 0.4 mg (4 x 0.1 mg) PO BID #240 12/22/23 tabs levothyroxine 200 mcg tablet 200 mcg PO QAM #30 tabs 01/06/24 hydrocortisone 10 mg tablet See Rx Instructions PO BID #135 02/13/24 tabs potassium chloride 20 mEq 20 meq PO QAM #90 tabs 02/13/24 tablet,extended release furosemide 20 mg tablet 20 mg PO QAM #30 tabs 02/16/24 albuterol sulfate 90 mcg/actuation 2 inh inhalation Q6H PRN shortness 02/24/24 aerosol inhaler (Ventolin HFA) of breath or wheezing #6.7 grams nystatin 100,000 unit/gram topical 1 applic topical BID #30 grams 03/02/24 cream metformin 1,000 mg tablet 1,000 mg PO BID #180 tabs 03/03/24 somatropin 5 mg/1.5 mL (3.3 mg/mL) 0.3 mg (0.09 mL) subcut QPM #2 03/13/24 subcutaneous pen injector syringes (Norditropin FlexPro) lacosamide 150 mg tablet 150 mg PO BID #60 tabs 03/23/24 pantoprazole 40 mg tablet,delayed 40 mg PO BID #60 tabs 03/26/24 release cholecalciferol (vitamin D3) 50 50 mcg PO QPM #90 caps 03/28/24 mcg (2,000 unit) capsule Results & Data (ED) Vital Signs Vital Signs - 24 hr 04/06/24 10:53 04/06/24 10:53 04/06/24 10:54 Temperature Temperature Source Pulse Rate 104 H Pulse Rate [Apical] 96 H Pulse Rate from SpO2 Sensor Respiratory Rate 22 Respiratory Effort / Characteristics SOB on Exertion Respiratory Depth Normal Respiratory Pattern Regular Blood Pressure Blood Pressure [Left Arm] 108/71 Blood Pressure Mean Blood Pressure Mean [Left Arm] 83 Pulse Oximetry 91 91 Oxygen Delivery Method Room Air Room Air Sepsis Recent Fever Within 48 Hours Sepsis New/Unexplained Change in Mental Status Sepsis Action Taken by Nursing 04/06/24 10:56 04/06/24 11:00 04/06/24 11:00 Temperature 36.5 C Temperature Source Oral Pulse Rate 92 H 93 H Pulse Rate [Apical] Pulse Rate from SpO2 Sensor 94 H Respiratory Rate 26 H 16 Respiratory Effort / Characteristics Non-Labored Spontaneous Respiratory Depth Normal Respiratory Pattern Blood Pressure 126/83 126/83 Blood Pressure [Left Arm] Blood Pressure Mean 97 97 Blood Pressure Mean [Left Arm] Pulse Oximetry 92 93 Oxygen Delivery Method Room Air Sepsis Recent Fever Within 48 Hours No Sepsis New/Unexplained Change in Mental Status No Sepsis Action Taken by Nursing No Action Required 04/06/24 11:05 04/06/24 11:10 04/06/24 11:16 Temperature Temperature Source Pulse Rate 89 93 H Pulse Rate [Apical] Pulse Rate from SpO2 Sensor 94 H Respiratory Rate 18 17 Respiratory Effort / Characteristics Respiratory Depth Respiratory Pattern Blood Pressure 122/75 Blood Pressure [Left Arm] Blood Pressure Mean 104 Blood Pressure Mean [Left Arm] Pulse Oximetry 92 93 Oxygen Delivery Method Room Air Sepsis Recent Fever Within 48 Hours Sepsis New/Unexplained Change in Mental Status Sepsis Action Taken by Nursing 04/06/24 11:16 04/06/24 11:20 04/06/24 11:30 Temperature Temperature Source Pulse Rate 97 H 87 90 Pulse Rate [Apical] Pulse Rate from SpO2 Sensor 96 H 88 92 H Respiratory Rate 22 17 17 Respiratory Effort / Characteristics Respiratory Depth Respiratory Pattern Blood Pressure Blood Pressure [Left Arm] Blood Pressure Mean Blood Pressure Mean [Left Arm] Pulse Oximetry 93 94 93 Oxygen Delivery Method Sepsis Recent Fever Within 48 Hours Sepsis New/Unexplained Change in Mental Status Sepsis Action Taken by Nursing 04/06/24 11:30 04/06/24 11:40 04/06/24 11:45 Temperature Temperature Source Pulse Rate 90 89 Pulse Rate [Apical] Pulse Rate from SpO2 Sensor 89 88 Respiratory Rate 16 15 Respiratory Effort / Characteristics Respiratory Depth Respiratory Pattern Blood Pressure 125/81 Blood Pressure [Left Arm] Blood Pressure Mean 102 Blood Pressure Mean [Left Arm] Pulse Oximetry 93 92 Oxygen Delivery Method Sepsis Recent Fever Within 48 Hours Sepsis New/Unexplained Change in Mental Status Sepsis Action Taken by Nursing 04/06/24 11:45 04/06/24 11:50 04/06/24 12:00 Temperature Temperature Source Pulse Rate 85 86 Pulse Rate [Apical] Pulse Rate from SpO2 Sensor 85 Respiratory Rate 15 17 Respiratory Effort / Characteristics Respiratory Depth Respiratory Pattern Blood Pressure 114/79 Blood Pressure [Left Arm] Blood Pressure Mean 88 Blood Pressure Mean [Left Arm] Pulse Oximetry 92 Oxygen Delivery Method Sepsis Recent Fever Within 48 Hours Sepsis New/Unexplained Change in Mental Status Sepsis Action Taken by Nursing 04/06/24 12:00 04/06/24 12:10 04/06/24 12:16 Temperature Temperature Source Pulse Rate 85 83 Pulse Rate [Apical] Pulse Rate from SpO2 Sensor 86 Respiratory Rate 17 Respiratory Effort / Characteristics Respiratory Depth Respiratory Pattern Blood Pressure 125/91 Blood Pressure [Left Arm] Blood Pressure Mean 101 Blood Pressure Mean [Left Arm] Pulse Oximetry 95 Oxygen Delivery Method Sepsis Recent Fever Within 48 Hours Sepsis New/Unexplained Change in Mental Status Sepsis Action Taken by Nursing 04/06/24 12:16 04/06/24 12:16 04/06/24 12:20 Temperature Temperature Source Pulse Rate 84 87 Pulse Rate [Apical] Pulse Rate from SpO2 Sensor 83 86 Respiratory Rate 15 16 Respiratory Effort / Characteristics Respiratory Depth Respiratory Pattern Blood Pressure 132/81 Blood Pressure [Left Arm] Blood Pressure Mean 98 Blood Pressure Mean [Left Arm] Pulse Oximetry 94 94 Oxygen Delivery Method Sepsis Recent Fever Within 48 Hours Sepsis New/Unexplained Change in Mental Status Sepsis Action Taken by Nursing 04/06/24 12:30 04/06/24 12:40 Temperature Temperature Source Pulse Rate 91 H 86 Pulse Rate [Apical] Pulse Rate from SpO2 Sensor 85 Respiratory Rate 17 16 Respiratory Effort / Characteristics Respiratory Depth Respiratory Pattern Blood Pressure Blood Pressure [Left Arm] Blood Pressure Mean Blood Pressure Mean [Left Arm] Pulse Oximetry 94 Oxygen Delivery Method Sepsis Recent Fever Within 48 Hours Sepsis New/Unexplained Change in Mental Status Sepsis Action Taken by Nursing Laboratory Data 04/06/24 10:55 04/06/24 10:55 Lab Results 04/06/24 04/06/24 04/06/24 Range/Units 10:55 11:58 13:07 WBC 10.60 (4.8-10.8) K/ul RBC 5.09 (4.70-6.10) M/uL Hgb 16.0 (14.0-18.0) g/dl Hct 48.0 (42.0-52.0) % MCV 94.3 (80.0-100.0) fL MCH 31.4 (25.0-34.0) pg MCHC 33.3 (32.0-36.0) g/dL RDW Std Deviation 50.2 H (36.4-46.3) fL RDW Coeff of [place] 14.5 (11.5-14.5) % Plt Count 191 (130-400) K/uL MPV 8.8 L (9.4-12.4) fL Immature Gran % (Auto) 2.7 % Neut % (Auto) 70.1 % Lymph % (Auto) 19.6 % [place] % (Auto) 6.2 % Eos % (Auto) 0.7 % Baso % (Auto) 0.7 % Neut # (Auto) 7.43 H (1.40-6.50) K/uL Lymph # (Auto) 2.08 (1.20-3.40) K/uL [place] # (Auto) 0.66 H (0.11-0.59) K/uL Eos # (Auto) 0.07 (0.00-0.50) K/uL Baso # (Auto) 0.07 (0.00-0.20) K/uL Immature Gran # (Auto) 0.29 H (0.01-0.20) K/uL ABG pH (7.35-7.45) ABG pCO2 (35-46) mmHg ABG pO2 (80-95) mmHg ABG HCO3 (19-24) mmol/L ABG O2 Saturation (90-95) % ABG Base Excess (-9-1.8) mEq/L Robert Test (Pos) Carboxyhemoglobin 1.7 % THgb Methemoglobin < 0.7 (0.0-1.5) % Oxygen Given Sodium 135 L (136-145) mmol/L Potassium 4.3 (3.5-5.1) mmol/L Chloride 99 (98-107) mmol/L Carbon Dioxide 28 (21-32) mmol/L Anion Gap 8 (3-11) BUN 17 (6-23) mg/dl Creatinine 1.20 (0.6-1.4) mg/dl Est Cr Clr Drug Dosing 94.5 ml/min Est GFR ( Amer) 78.4 ml/min Est GFR (Non-Af Amer) 67.7 ml/min BUN/Creatinine Ratio 14.2 (10-20) Glucose 189 H (70-99(Fasting)) mg/dl Calcium 9.3 (8.6-10.3) mg/dl Magnesium 1.9 (1.7-2.4) mg/dl Total Bilirubin 0.4 (0.2-1.0) mg/dl AST 14 (13-39) U/L ALT 21 (7-52) U/L Alkaline Phosphatase 50 (34-104) U/L Troponin I High Sens 7.8 (0-20) pg/ml B-Natriuretic Peptide 28 (0-100) pg/ml Total Protein 6.5 (6.0-8.3) gm/dl Albumin 4.3 (3.4-5.0) gm/dl Globulin 2.2 L (2.5-4.0) gm/dl Albumin/Globulin Ratio 2.0 (0.9-2) Lipase 33 (11-82) U/L TSH 0.115 L (0.300-4.500) uIu/ml Free T4 0.97 (0.61-1.60) ng/dl Free T3 3.54 (2.3-4.2) pg/ml Urine Color Dark Yellow Urine Appearance Clear (Clear) Urine pH 5.5 (4.5-7.5) Ur Specific [place] 1.031 H (1.000-1.030) Urine Protein 2+ H (Negative) Urine Glucose (UA) 1+ H (Negative) Urine Ketones 1+ H (Negative) Urine Blood 1+ H (Negative) Urine Nitrite Negative (Negative) Urine Bilirubin Negative (Negative) Urine Urobilinogen Negative (Negative) Ur Leukocyte Esterase Negative (Negative) Urine WBC (Auto) 0-5 (0-5) /hpf Urine RBC (Auto) 0-2 (0-2) /hpf U Hyaline Cast (Auto) 6-10 H (0-2) /lpf U Epithel Cells (Auto) 0-2 (0-2) /hpf Urine Bacteria (Auto) None Seen (None Seen) Calcium Oxalate Crystal Present A (None Prsent) Urine Mucus Present A (None Prsent) [place] < 0.1 L (0.6-1.2) mmol/L 04/06/24 Range/Units 13:13 WBC (4.8-10.8) K/ul RBC (4.70-6.10) M/uL Hgb (14.0-18.0) g/dl Hct (42.0-52.0) % MCV (80.0-100.0) fL MCH (25.0-34.0) pg MCHC (32.0-36.0) g/dL RDW Std Deviation (36.4-46.3) fL RDW Coeff of [place] (11.5-14.5) % Plt Count (130-400) K/uL MPV (9.4-12.4) fL Immature Gran % (Auto) % Neut % (Auto) % Lymph % (Auto) % [place] % (Auto) % Eos % (Auto) % Baso % (Auto) % Neut # (Auto) (1.40-6.50) K/uL Lymph # (Auto) (1.20-3.40) K/uL [place] # (Auto) (0.11-0.59) K/uL Eos # (Auto) (0.00-0.50) K/uL Baso # (Auto) (0.00-0.20) K/uL Immature Gran # (Auto) (0.01-0.20) K/uL ABG pH 7.43 (7.35-7.45) ABG pCO2 44 (35-46) mmHg ABG pO2 81 (80-95) mmHg ABG HCO3 29 H (19-24) mmol/L ABG O2 Saturation 97.0 H (90-95) % ABG Base Excess 4.2 H (-9-1.8) mEq/L Robert Test Pos (Pos) Carboxyhemoglobin % THgb Methemoglobin (0.0-1.5) % Oxygen Given ROOM AIR Sodium (136-145) mmol/L Potassium (3.5-5.1) mmol/L Chloride (98-107) mmol/L Carbon Dioxide (21-32) mmol/L Anion Gap (3-11) BUN (6-23) mg/dl Creatinine (0.6-1.4) mg/dl Est Cr Clr Drug Dosing ml/min Est GFR ( Amer) ml/min Est GFR (Non-Af Amer) ml/min BUN/Creatinine Ratio (10-20) Glucose (70-99(Fasting)) mg/dl Calcium (8.6-10.3) mg/dl Magnesium (1.7-2.4) mg/dl Total Bilirubin (0.2-1.0) mg/dl AST (13-39) U/L ALT (7-52) U/L Alkaline Phosphatase (34-104) U/L Troponin I High Sens (0-20) pg/ml B-Natriuretic Peptide (0-100) pg/ml Total Protein (6.0-8.3) gm/dl Albumin (3.4-5.0) gm/dl Globulin (2.5-4.0) gm/dl Albumin/Globulin Ratio (0.9-2) Lipase (11-82) U/L TSH (0.300-4.500) uIu/ml Free T4 (0.61-1.60) ng/dl Free T3 (2.3-4.2) pg/ml Urine Color Urine Appearance (Clear) Urine pH (4.5-7.5) Ur Specific [place] (1.000-1.030) Urine Protein (Negative) Urine Glucose (UA) (Negative) Urine Ketones (Negative) Urine Blood (Negative) Urine Nitrite (Negative) Urine Bilirubin (Negative) Urine Urobilinogen (Negative) Ur Leukocyte Esterase (Negative) Urine WBC (Auto) (0-5) /hpf Urine RBC (Auto) (0-2) /hpf U Hyaline Cast (Auto) (0-2) /lpf U Epithel Cells (Auto) (0-2) /hpf Urine Bacteria (Auto) (None Seen) Calcium Oxalate Crystal (None Prsent) Urine Mucus (None Prsent) [place] (0.6-1.2) mmol/L Administered Medications Discontinued Medications Furosemide (Furosemide 40 Mg/4 Ml Vial) 40 mg IV NOW STA Stop: 04/06/24 12:02 Last Admin: 04/06/24 12:21 Dose: 40 mg Documented By: [facility] Imaging Data Radiologist's Impression: Chest X-Ray 04/06/24 10:56 XR chest 1V portable HISTORY: 53 years-old Male Chest pain, nonspecific COMPARISON: 03/30/2024 TECHNIQUE: AP view of chest FINDINGS: No pneumothorax. No pleural effusions. The cardiac silhouette remains top normal in size. Mild interstitial prominence may be technical. Otherwise, no focal lung consolidations to suggest pneumonia. No evidence for pulmonary edema. There is an old, healed left midshaft clavicle fracture. There is a small electronic device overlying the left chest. IMPRESSION: No acute process. ACT 112: Negative or not required by law. The above report was generated using voice recognition software. It may contain grammatical, syntax or spelling errors. Electronically signed by: Bean Tolentino M.D. 04/06/2024 11:46 AM Discharge Plan Visit Data Chief Complaint: Shortness of Breath/Dyspnea Stated Complaint: EDEMA TO LOWER EXTREMITIES, CHEST PAIN, SOB ED Provider: James Estrada Discharge Problem: Shortness of breath, Chest pain, Breathlessness on exertion, Pitting edema Forms Stand Alone Forms: My [facility] [employer] Prescriptions Prescriptions: No Action lithium carbonate 300 mg tablet 300 mg PO AMHS alfuzosin 10 mg tablet extended release 24 hr 10 mg PO QAM Qty: 90 3RF Rx Instructions: TAKE THIS MED AFTER A MEAL fluticasone propionate [Flonase Allergy Relief] 50 mcg/actuation spray,suspension 1 spray intranasal HS PRN (Reason: allergy symptoms) Qty: 16 0RF Rx Instructions: administer into each nostril (DME) insulin syringe-needle U-100 [BD Insulin Syringe Ultra-Fine] 1 mL 30 gauge x 1/2" syringe See Rx Instructions .Route Qty: 300 1RF Rx Instructions: use tid (DME) OneTouch Verio test strips Strip See Rx Instructions .MEDSUPPLY Qty: 150 5RF Rx Instructions: check blood sugars 4 times a day (DME) blood-glucose meter [OneTouch Verio Reflect Meter] Mis See Rx Instructions miscellaneous .MEDSUPPLY Qty: 1 0RF Rx Instructions: As directed (DME) lancets [OneTouch Delica Plus Lancet] 33 gauge misc See Rx Instructions .MEDSUPPLY Qty: 150 5RF Rx Instructions: As directed check blood sugars 4 times a day desmopressin [DDAVP] 0.1 mg tablet 0.4 mg PO BID Qty: 240 1RF levothyroxine 200 mcg tablet 200 mcg PO QAM Qty: 30 3RF potassium chloride 20 mEq tablet extended release 20 meq PO QAM Qty: 90 1RF Rx Instructions: to take with furosemide hydrocortisone 10 mg tablet See Rx Instructions PO BID Qty: 135 1RF Rx Instructions: TAKE 20mg IN THE AM AND 10mg IN THE PM. MAY DOUBLE THE DOSE IN TIMES OF STRESS. furosemide 20 mg tablet 20 mg PO QAM Qty: 30 5RF metformin 1,000 mg tablet 1,000 mg PO BID Qty: 180 3RF Hold Instructions: Per Dr Voss to hold as of 11/23/22 Norditropin FlexPro 5 mg/1.5 mL (3.3 mg/mL) pen injector 0.3 mg SQ QPM Qty: 2 5RF lacosamide 150 mg tablet 150 mg PO BID Qty: 60 5RF pantoprazole 40 mg tablet,delayed release (DR/EC) 40 mg PO BID Qty: 60 5RF cholecalciferol (vitamin D3) 50 mcg (2,000 unit) capsule 50 mcg PO QPM Qty: 90 1RF cyclobenzaprine 10 mg tablet 10 mg PO BID PRN (Reason: muscle spasm) 30 Days Qty: 60 1RF (DME) FreeStyle Rosalie 2 Sensor Kit See Rx Instructions .Route Qty: 6 3RF Rx Instructions: Change every 14 days hydrocodone-acetaminophen 10-325 mg tablet 1 tab PO Q6H PRN (Reason: Pain) (DME) FreeStyle Rosalie 2 [place] Misc See Rx Instructions .Route Qty: 1 0RF Rx Instructions: Check blood glucose before each meal testosterone 20.25 mg/1.25 gram (1.62 %) gel in metered-dose pump 2 pump TOP PM Qty: 75 5RF Rx Instructions: apply 1 pump amount over max area of EACH upper arm and shoulder PDMP Queried ok to fill 03/17/2023 DS (DME) OneTouch Verio test strips Strip See Rx Instructions .Route Rx Instructions: Test blood sugar two times daily Rexulti 3 mg tablet 3 mg PO QAM duloxetine 30 mg capsule,delayed release(DR/EC) 30 mg PO HS mirtazapine [Remeron] 30 mg tablet See Rx Instructions .ROUTE .COMPLEX Rx Instructions: Take 30mg w/ 15mg tablet to equal 45mg at bedtime. celecoxib 200 mg capsule 200 mg PO DAILY PRN (Reason: Pain) ibuprofen [Advil] 200 mg tablet 400 mg PO Q6H PRN (Reason: Pain) Nurtec ODT 75 mg tablet,disintegrating 75 mg PO DAILY PRN (Reason: Migraine Headache) Qty: 8 6RF divalproex 500 mg tablet,delayed release (DR/EC) 1,000 mg PO BID 30 Days Qty: 120 6RF lisinopril 10 mg tablet 20 mg PO QAM albuterol sulfate [Ventolin HFA] 90 mcg/actuation HFA aerosol inhaler 2 inh inhalation Q6H PRN (Reason: shortness of breath or wheezing) Qty: 6.7 2RF insulin glargine [Lantus Solostar U-100 Insulin] 100 unit/mL (3 mL) insulin pen 14 unit SUBCUT HS Hold Instructions: Has been on hold for a few weeks per pt ferrous sulfate 325 mg (65 mg iron) tablet 325 mg PO QAM mirtazapine [Remeron] 15 mg tablet See Rx Instructions .ROUTE .COMPLEX Rx Instructions: Take 15mg w/ 30mg tablet to equal 45mg at bedtime. nystatin 100,000 unit/gram cream 1 applic topical BID Qty: 30 0RF prazosin [Minipress] 5 mg capsule 5 mg PO HS duloxetine 60 mg capsule,delayed release(DR/EC) 60 mg PO QAM acetaminophen 325 mg Tablet 650 mg PO Q6H PRN (Reason: pain) Qty: 30 0RF docusate sodium [Colace] 100 mg capsule 100 mg PO BID PRN (Reason: Constipation) rosuvastatin 20 mg tablet 20 mg PO QAM lorazepam 0.5 mg Tablet 0.5 mg PO DAILY PRN (Reason: Seizure Activity) propranolol 60 mg capsule,extended release 24 hr 60 mg PO HS clopidogrel 75 mg tablet 75 mg PO QPM amlodipine 5 mg tablet 5 mg PO QAM aspirin 81 mg tablet,delayed release (DR/EC) 81 mg PO QAM oxybutynin chloride 5 mg tablet 5 mg PO HS PRN (Reason: bladder spasms) dutasteride 0.5 mg capsule 0.5 mg PO QAM Rx Instructions: TAKE 1 CAPSULE BY MOUTH DAILY IN THE MORNING Botox 200 unit recon soln 155 unit IM UD Rx Instructions: 155 UNITS IM IN THE FACE AND NECK MUSCLES EVERY 12 WEEKS PER MIGRAINE PROTOCOL Baqsimi 3 mg/actuation spray,non-aerosol 3 mg intranasal ONCE PRN (Reason: Severe Hypoglycemia) Rx Instructions: for treatment of severe hypoglycemia, second dose may be given if patient does not respond after 15 minutes . Per caregiver, pt has never has to use this medication. Referrals Referrals: Larry Amaral MD [Primary Care Provider] - Discharge Problem: Chest pain Qualifiers: Chest pain type: unspecified Qualified Code(s): R07.9 - Chest pain, unspecified
[2024-04-06 11:15] LABS: Basophils # (auto) 0.07 K/uL (0.00-0.20); Basophils % (auto) 0.7 %; Eosinophils # (auto) 0.07 K/uL (0.00-0.50); Eosinophils % (auto) 0.7 %; Immature Granulocytes # (auto) 0.29 K/uL (0.01-0.20); Immature Granulocytes % (auto) 2.7 %; Lymphocytes # (auto) 2.08 K/uL (1.20-3.40); Lymphocytes % (auto) 19.6 %; Mean Corpuscular Hemoglobin 31.4 pg (25.0-34.0); Mean Corpuscular Hgb Conc 33.3 g/dL (32.0-36.0); Mean Corpuscular Volume 94.3 fL (80.0-100.0); Mean Platelet Volume 8.8 fL (9.4-12.4); Monocytes # (auto) 0.66 K/uL (0.11-0.59); Monocytes % (auto) 6.2 %; Neutrophils # (auto) 7.43 K/uL (1.40-6.50); Neutrophils % (auto) 70.1 %; Platelet Count 191 K/uL (130-400); RDW Coefficient of Variation 14.5 % (11.5-14.5); RDW Standard Deviation 50.2 fL (36.4-46.3); Red Blood Count 5.09 M/uL (4.70-6.10)
[2024-04-06 11:27] LABS: Albumin Level 4.3 gm/dl (3.4-5.0); BUN Creatinine Ratio 14.2 (10-20); Bilirubin,Total 0.4 mg/dl (0.2-1.0); Calcium 9.3 mg/dl (8.6-10.3); Creatinine Clr Calc Pharmacy 94.5 ml/min; Est GFR (African American) 78.4 ml/min; Est GFR (Non-African American) 67.7 ml/min; Globulin 2.2 gm/dl (2.5-4.0); Potassium 4.3 mmol/L (3.5-5.1); Total Protein 6.5 gm/dl (6.0-8.3)
[2024-04-06 11:33] LABS: Troponin I High Sensitivity 7.8 pg/ml (0-20)
--- NOTE | 2024-04-06 11:47 | XRay Report ---
XR chest 1V portable HISTORY: 53 years-old Male Chest pain, nonspecific COMPARISON: 03/30/2024 TECHNIQUE: AP view of chest FINDINGS: No pneumothorax. No pleural effusions. The cardiac silhouette remains top normal in size. Mild inters titial prominence may be technical. Otherwise, no focal lung consolidations to suggest pneumonia. No evidence for pulmonary edema. There is an old, healed left midshaft clavicle fracture. There is a sma ll electronic device overlying the left chest. IMPRESSION: No acute process. ACT 112: Negative or not required by law. The above report was generated using voice recognition software. It may contain grammatical, syntax o r spelling errors. Electronically signed by: Bean Tolentino M.D. 04/06/2024 11:46 AM
[2024-04-06] MEDS: FUROSEMIDE 40 MG/4 ML VIAL IV STA (12:21)
--- NOTE | 2024-04-06 12:47 | History & Physical Report ---
Date of Service April 06, 2024 Assessment & Plan (1) Shortness of breath on exertion: Plan: No pulmonary edema to suggest left sided heart failure No CXR or prior CT findings to suggest pneumonia No hypoxia Normal carboxyhemoglobin and methemoglobin levels Normal troponin 02/15/24 Transesophageal echocardiogram with small pericardial effusion - will get limited echocardiogram to reassess Suspect some of his shortness of breath is related to his large distended abdome n - no urine retention on bladder scan, CT A/P ordered Monitor for arrhythmia on med/tele If CT unremarkable, suspect this is due to generalized deconditioning Consider 2 step to make sure not requiring oxygen on exertion PT/OT assessments (2) Peripheral edema: Plan: No evidence of left sided heart failure, possible some of this is right sided failure due to untreated CORINA but no reason this should be acutely worse - this has been untreated for years US venous doppler ?hypothyroidism - free T4/T3 level pending Unlikely benefit from Lasix - Cr has been increase, will repeat with AM labs but suspect he should just go back on his usual dosing (3) Pituitary diabetes insipidus: Plan: Continue desmopressin (4) Pituitary hypogonadism: Plan: Continue testosterone (5) Pituitary hypothyroidism: Plan: free T4/T3 levels (6) Secondary adrenal insufficiency: Plan: Continue his usual hydrocortisone dosing (7) Recurrent seizures: Plan: Continue his usual anti-seizure medications (8) Obstructive sleep apnea: Plan: Does not wear CPAP HS therefore no need to order here (9) Hypertension: Plan: Continue his usual anti-hypertensives (10) Diabetes: Plan: History of surreptitious insulin use HbA1C 6.0 in October Plan VTE Prophylaxis - deferred pending further workup (US venous doppler pending) Diet - T2DM Disposition - observation on med/tele Admission and Anticipated Discharge Date Admission Date: April 06, 2024 History of Present Illness Chief Complaint: Shortness of breath Primary Care Provider: Larry Amaral MD Anders Leiva (Donny) is a 53 year old male who presents to the ER with shortness of breath. He reports progressively worsening shortness of breath with weight gain and peripheral edema over the last 2 weeks. He is finding it difficult now to even walk down the pratt. He has diagnosed obstructive sleep apnea but has never used the CPAP regularly. He has used an inhaler but reports this hasn't helped. He notes his abdomen is distended over the same time period with mild suprapubic pain. He reports taking all medications as prescribed although notably has a history of surreptitious insulin use causing hypoglycemia. No fever, chills, nasal congestion, sinus pain, nausea, vomiting, dysuria, flank pain. Allergies Allergy/AdvReac Type Severity Reaction Status Date / Time clindamycin Allergy Intermediate SWELLING Verified 04/06/24 12:22 Iodinated Contrast Media Allergy Intermediate face/eye Verified 04/06/24 12:22 swelling Quinolones Allergy Intermediate HIVES Verified 04/06/24 12:22 Home Medications Medication Instructions Recorded Confirmed Type cyclobenzaprine 10 mg tablet 10 mg PO BID PRN muscle spasm 30 09/18/20 04/06/24 Rx days #60 tabs acetaminophen 325 mg tablet 650 mg (2 x 325 mg) PO Q6H PRN 03/01/22 04/06/24 Rx pain #30 tabs lithium carbonate 300 mg tablet 300 mg PO AMHS 06/04/22 04/06/24 History brexpiprazole 3 mg tablet (Rexulti) 3 mg PO QAM 06/23/22 04/06/24 History celecoxib 200 mg capsule 200 mg PO DAILY PRN Pain 06/23/22 04/06/24 History duloxetine 30 mg capsule,delayed 30 mg PO HS 06/23/22 04/06/24 History release mirtazapine 30 mg tablet (Remeron) See Rx Instructions .Route .COMPLEX 06/23/22 04/06/24 History alfuzosin 10 mg tablet,extended 10 mg PO QAM #90 tabs 08/05/22 04/06/24 Rx release 24 hr blood sugar diagnostic (OneTouch 08/06/22 04/06/24 History Verio test strips) duloxetine 60 mg capsule,delayed 60 mg PO QAM 11/09/22 04/06/24 History release prazosin 5 mg capsule (Minipress) 5 mg PO HS 11/09/22 04/06/24 History docusate sodium 100 mg capsule 100 mg PO BID PRN Constipation 12/27/22 04/06/24 History (Colace) ibuprofen 200 mg tablet (Advil) 400 mg PO Q6H PRN Pain 02/21/23 04/06/24 History fluticasone propionate 50 1 spray intranasal HS PRN allergy 03/16/23 04/06/24 Rx mcg/actuation nasal symptoms #16 grams spray,suspension (Flonase Allergy Relief) FreeStyle Rosalie 2 [place] (flash #1 ea 05/13/23 04/06/24 Rx glucose scanning reader) FreeStyle Rosalie 2 Sensor (flash #6 ea 06/24/23 04/06/24 Rx glucose sensor) hydrocodone 10 mg-acetaminophen 1 tab PO Q6H PRN Pain 08/03/23 04/06/24 History 325 mg tablet divalproex 500 mg tablet,delayed 1,000 mg (2 x 500 mg) PO BID 30 09/14/23 04/06/24 Rx release days #120 tabs rimegepant 75 mg disintegrating 75 mg PO DAILY PRN Migraine 09/14/23 04/06/24 Rx tablet (Nurtec ODT) Headache #8 tabs lorazepam 0.5 mg tablet 0.5 mg PO DAILY PRN Seizure 09/19/23 04/06/24 History Activity rosuvastatin 20 mg tablet 20 mg PO QAM 09/19/23 04/06/24 History testosterone 2 pump topical PM #75 grams 11/09/23 04/06/24 Rx blood sugar diagnostic (OneTouch #150 ea 11/22/23 04/06/24 Rx Verio test strips) blood-glucose meter (OneTouch #1 ea 11/22/23 04/06/24 Rx Verio Reflect Meter) insulin syringe-needle U-100 1 mL #300 ea 11/22/23 04/06/24 Rx 30 gauge x 1/2" (BD Insulin Syringe Ultra-Fine) lancets 33 gauge (OneTouch Delica #150 ea 11/22/23 04/06/24 Rx Plus Lancet) desmopressin 0.1 mg tablet (DDAVP) 0.4 mg (4 x 0.1 mg) PO BID #240 12/22/23 04/06/24 Rx tabs mirtazapine 15 mg tablet (Remeron) See Rx Instructions .Route .COMPLEX 12/30/23 04/06/24 History levothyroxine 200 mcg tablet 200 mcg PO QAM #30 tabs 01/06/24 04/06/24 Rx hydrocortisone 10 mg tablet See Rx Instructions PO BID #135 02/13/24 04/06/24 Rx tabs potassium chloride 20 mEq 20 meq PO QAM #90 tabs 02/13/24 04/06/24 Rx tablet,extended release furosemide 20 mg tablet 20 mg PO QAM #30 tabs 02/16/24 04/06/24 Rx ferrous sulfate 325 mg (65 mg 325 mg PO QAM 02/20/24 04/06/24 History iron) tablet albuterol sulfate 90 mcg/actuation 2 inh inhalation Q6H PRN shortness 02/24/24 04/06/24 Rx aerosol inhaler (Ventolin HFA) of breath or wheezing #6.7 grams lisinopril 10 mg tablet 20 mg PO QAM 02/24/24 04/06/24 History nystatin 100,000 unit/gram topical 1 applic topical BID #30 grams 03/02/24 04/06/24 Rx cream metformin 1,000 mg tablet 1,000 mg PO BID #180 tabs 03/03/24 04/06/24 Rx somatropin 5 mg/1.5 mL (3.3 mg/mL) 0.3 mg (0.09 mL) subcut QPM #2 03/13/24 04/06/24 Rx subcutaneous pen injector syringes (Norditropin FlexPro) lacosamide 150 mg tablet 150 mg PO BID #60 tabs 03/23/24 04/06/24 Rx pantoprazole 40 mg tablet,delayed 40 mg PO BID #60 tabs 03/26/24 04/06/24 Rx release cholecalciferol (vitamin D3) 50 50 mcg PO QPM #90 caps 03/28/24 04/06/24 Rx mcg (2,000 unit) capsule insulin glargine 100 unit/mL (3 14 unit subcut HS 04/02/24 04/06/24 History mL) subcutaneous pen (Lantus Solostar U-100 Insulin) amlodipine 5 mg tablet 5 mg PO QAM 04/06/24 04/06/24 History aspirin 81 mg tablet,delayed 81 mg PO QAM 04/06/24 04/06/24 History release clopidogrel 75 mg tablet 75 mg PO QPM 04/06/24 04/06/24 History dutasteride 0.5 mg capsule 0.5 mg PO QAM 04/06/24 04/06/24 History glucagon 3 mg/actuation nasal 3 mg intranasal ONCE PRN Severe 04/06/24 04/06/24 History spray (Baqsimi) Hypoglycemia onabotulinumtoxinA 200 unit 155 unit IM UD 04/06/24 04/06/24 History solution for injection (Botox) oxybutynin chloride 5 mg tablet 5 mg PO HS PRN bladder spasms 04/06/24 04/06/24 History propranolol 60 mg capsule,24 60 mg PO HS 04/06/24 04/06/24 History hr,extended release Past Med/Surg History Problem List (Updated 04/07/24 @ 06:28 by Trenton Carney MD) Shortness of breath on exertion Peripheral edema Chest pain (Acute) Acute dyspnea (Acute) Atrial fibrillation Acute CHF Hypertension (Acute) Secondary adrenal insufficiency Pituitary diabetes insipidus Follows with endocrinology- on DDAVP Pituitary hypogonadism Follows with endocrinology- Pituitary hypothyroidism Follows with endocrinology- Non-occlusive coronary artery disease Lumbar stenosis with neurogenic claudication Hypoglycemia Recurrent seizures (Acute) Esophageal dysphagia Anxiety (Chronic) Mitral regurgitation Essential tremor Paresthesia Internal hemorrhoids Idiopathic polyneuropathy Lumbosacral radiculopathy Panhypopituitarism (Acute) Arachnoid cyst of posterior cranial fossa Obstructive sleep apnea Mixed hyperlipidemia Ulcerative colitis Anemia Bipolar disorder (10/11/22) Chronic migraine without aura or status migrainosus Uncontrolled type 2 diabetes mellitus with hyperglycemia Suspect low glycation index meaning his A1c is typically about 2 points lower than what his average glucose would suggest. Chronic low back pain Current use of proton pump inhibitor Severe obesity (BMI 35.0-35.9 with comorbidity) 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 Growth hormone deficiency Depression BPH with obstruction/lower urinary tract symptoms Syncope and collapse (Acute) Reason for loop recorder No recent issues since bed bound from femur fracture in Sep 2022 per patient Medical History Spondylolysis, lumbar region Seizure disorder (02/15/24) Seizure disorder Right lumbar radiculopathy PTSD (post-traumatic stress disorder) HTN (hypertension) (02/18/24) HTN (hypertension) Epidural lipomatosis Chronic left sacroiliac pain Bipolar disorder Atrial fibrillation (02/15/24) Adrenal insufficiency Pituitary adenoma Diabetes Bleeding (02/16/24) Acute blood loss anemia (02/19/24) Hyperactive gag reflex BRCA gene positive Family history of BRCA gene mutation PTSD (post-traumatic stress disorder) Epidural lipomatosis Chronic left sacroiliac pain Benzodiazepine overdose Presence of cardiac device Hx of fracture of foot Fracture of fibula, right, closed Cerebral concussion Orthostatic hypotension Pseudoseizures Sensorineural hearing loss of both ears Rectal bleeding History of COVID-19 Mitral valve regurgitation Vertigo Acute kidney injury Panhypopituitarism Lower extremity edema Elevated LFTs Bilateral hand pain Pituitary neoplasm Kidney stones Prostate mass Bladder mass Obstructive sleep apnea of adult Surgical History S/P TURP (status post transurethral resection of prostate) History of lumbar fusion History of cardiac cath S/P epidural steroid injection History of lithotripsy Status post right foot surgery History of bladder surgery History of prostate surgery History of colonoscopy History of esophagogastroduodenoscopy (EGD) History of tooth extraction History of wisdom tooth extraction History of brain surgery Family History Grandmother (Paternal) Family history of diabetes mellitus Aunt Family history of diabetes mellitus Uncle Family history of diabetes mellitus Father Prostate cancer Heart disease Mother Cardiac disorder Grandmother (Maternal) Myocardial infarction Other Asthma Cancer Hypertension No family history of adverse response to anesthesia No family history of bleeding disorder Stroke Denies family history of Ovarian cancer Breast cancer Colorectal cancer Social History Smoking Status: Never smoker Tobacco Type: Smokeless Tobacco (Dip or Chew) Second Hand Exposure: No; Do You Dip or Chew Tobacco: Yes; Hx Alcohol Use: Yes Alcohol type: beer Alcohol Intake Frequency: Never Hx Substance Use: No Preferred Language: [place] Communication Ability: Effective Communication Ability Comment: Unable to obtain due to patient condition. 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 caffeine: No (1/2 20 oz bottle of mountain dew. ) during the past year weight has: increased > 10 lbs Physical Activity Frequency: Daily Physical Activity Frequency Comment: walking, 1.5 miles daily. Seatbelt Use: always Gender Identity: Male Assistive Devices: Glasses Review of Systems Review of Systems: All systems reviewed & are unremarkable except as noted in HPI & below Physical Exam Constitutional: WD/WN, vitals as above Eyes: PERRL, conjunctivae normal, anicteric sclerae ENMT: external ear and nose normal, oropharynx normal Respiratory: normal respiratory effort; no respiratory distress Auscultation: breath sounds present, no diminished lung sounds, no crackles, no rales, no rhonchi and no wheezes Cardiovascular: Rate/Rhythm: regular rate and regular rhythm Heart Sounds: no murmur Extremities: normal capillary refill and + pedal edema (1+ pitting to knees b/l equal); no calf tenderness Gastrointestinal (Abdomen): Inspection/Auscultation: + abdomen distended Percussion/Palpation: + abdomen tender (suprapubic) and + abdomen rigid; no guarding and + abdomen not soft Skin: no rashes, warm and dry Neurologic: moves all extremities and awake; not confused Psychiatric: A+Ox3, euthymic affect Genitourinary: no CVA tenderness Results & Data Results & Data Vital Signs (Past 12 Hours) Vital Signs Temp Pulse Pulse Resp BP BP Pulse Ox 04/06/24 12:16 83 04/06/24 11:50 85 15 92 04/06/24 11:45 114/79 04/06/24 11:45 89 15 92 04/06/24 11:40 90 16 93 04/06/24 11:30 125/81 04/06/24 11:30 90 17 93 04/06/24 11:20 87 17 94 04/06/24 11:16 97 H 22 93 04/06/24 11:16 122/75 04/06/24 11:10 93 H 17 93 04/06/24 11:05 89 18 92 04/06/24 11:00 126/83 04/06/24 11:00 93 H 16 93 04/06/24 10:56 36.5 C 92 H 26 H 126/83 92 04/06/24 10:54 104 H 04/06/24 10:53 96 H 22 108/71 91 04/06/24 10:53 91 O2 Del Method 04/06/24 12:16 04/06/24 11:50 04/06/24 11:45 04/06/24 11:45 04/06/24 11:40 04/06/24 11:30 04/06/24 11:30 04/06/24 11:20 04/06/24 11:16 04/06/24 11:16 04/06/24 11:10 04/06/24 11:05 Room Air 04/06/24 11:00 04/06/24 11:00 04/06/24 10:56 Room Air 04/06/24 10:54 04/06/24 10:53 Room Air 04/06/24 10:53 Room Air Laboratory Results Abnormal lab results 04/06/24 Range/Units 10:55 RDW Std Deviation 50.2 H (36.4-46.3) fL MPV 8.8 L (9.4-12.4) fL Neut # (Auto) 7.43 H (1.40-6.50) K/uL [place] # (Auto) 0.66 H (0.11-0.59) K/uL Immature Gran # (Auto) 0.29 H (0.01-0.20) K/uL Sodium 135 L (136-145) mmol/L Glucose 189 H (70-99(Fasting)) mg/dl Globulin 2.2 L (2.5-4.0) gm/dl Diagnostic Findings XR chest 1V portable HISTORY: 53 years-old Male Chest pain, nonspecific COMPARISON: 03/30/2024 TECHNIQUE: AP view of chest FINDINGS: No pneumothorax. No pleural effusions. The cardiac silhouette remains top normal in size. Mild interstitial prominence may be technical. Otherwise, no focal lung consolidations to suggest pneumonia. No evidence for pulmonary edema. There is an old, healed left midshaft clavicle fracture. There is a small electronic device overlying the left chest. IMPRESSION: No acute process. Medications Administered ER Medications Given: Furosemide 40mg IV ECG Rate (beats per minute): 97 Rhythm: normal sinus Findings: no acute ischemic change Comparison ECG Date: from (March 30, 2024) Change: no significant change Code Status & VTE Plan Code Status Full VTE Prophylaxis Plan VTE Prophylaxis will be ordered: Yes PG Care Time/CCT Total # of Minutes Spent Total Time Spent with Patient: Total time spent is greater than 50% in coordination of care (as documented) at patient's floor/unit and/or counseling patient: Coding Level of Care Code 68077 INT INP/OBS CARE 3/75MIN Diagnoses Shortness of breath on exertion R06.02 Peripheral edema R60.0 Pituitary diabetes insipidus E23.2 Pituitary hypogonadism E23.0 Pituitary hypothyroidism E03.8 Secondary adrenal insufficiency E27.49 Recurrent seizures G40.909 Obstructive sleep apnea G47.33 Hypertension I10 Hypertension type: primary hypertension Diabetes E11.9 (9) Hypertension Hypertension type: primary hypertension Qualified Code(s): I10 - Essential (primary) hypertension
[2024-04-06 13:13] LABS: Appearance Urine Clear (Clear); Bacteria Urine Automated None Seen (None Seen); Bilirubin Urine Negative (Negative); Blood Urine 1+ (Negative); Calcium Oxalate Crystals Urine Present (None Prsent); Color Urine Dark Yellow; Epithelial Cell Urine Auto 0-2 /hpf (0-2); Glucose Urine UA 1+ (Negative); Ketones Urine 1+ (Negative); Leukocyte Esterase Urine Negative (Negative); Mucus Urine Present (None Prsent); Nitrite Urine Negative (Negative); Protein Urine 2+ (Negative); RBC Urine Automated 0-2 /hpf (0-2); Specific Gravity Urine 1.031 (1.000-1.030); Urobilinogen Urine Negative (Negative); WBC Urine Automated 0-5 /hpf (0-5); pH Urine 5.5 (4.5-7.5)
[2024-04-06 13:22] LABS: Base Excess ABG 4.2 mEq/L (-9-1.8); HCO3 ABG 29 mmol/L (19-24); PCO2 ABG 44 mmHg (35-46); PO2 ABG 81 mmHg (80-95); pH ABG 7.43 (7.35-7.45)
[2024-04-06 13:24] LABS: Allen Test Pos (Pos)
[2024-04-06 13:25] LABS: Carboxyhemoglobin 1.7 % THgb; Methemoglobin < 0.7 % (0.0-1.5)
[2024-04-06 13:46] LABS: Magnesium 1.9 mg/dl (1.7-2.4)
[2024-04-06 14:00] LABS: Thyroid Stimulating Hormone 0.115 uIu/ml (0.300-4.500)
[2024-04-06 14:02] LABS: T4 Free Thyroxine 0.97 ng/dl (0.61-1.60)
[2024-04-06 14:52] LABS: Creatinine Urine Random 181.9 mg/dl; Protein Creatinine Ratio Urine 0.3 (0-0.2); Total Protein Urine Random 57.2 mg/dl (0-11.9)
--- NOTE | 2024-04-06 15:19 | Electrocardiogram Report ---
Test Reason : Blood Pressure : / mmHG Vent. Rate : 097 BPM Atrial Rate : 097 BPM P-R Int : 148 ms QRS Dur : 076 ms QT Int : 332 ms P-R-T Axes : 065 -23 059 degrees QTc Int : 421 ms Normal sinus rhythm Low voltage QRS Poor R wave progression, consider anterior CA vs. lead placement vs. LVH Abnormal ECG When compared with ECG of 30-MAR-2024 11:45, No significant change was found Confirmed by Glynn Sheth ([id number]) on 04/06/2024 3:19:45 PM Referred By: Confirmed By:Avel Sheth
--- NOTE | 2024-04-06 16:03 | CT Scan Report ---
CT SCAN OF THE ABDOMEN AND PELVIS WITHOUT IV CONTRAST CLINICAL HISTORY: Abdominal distention. Generalized abdominal pain. COMPARISON STUDY: Abdominal CT dated 12/02/2023. TECHNIQUE: CT scan of the abdomen and pelvis is performed from the lung bases to the proximal femora. Images are reviewed in the axial, sagittal, and coronal planes. IV contrast was not administered for this examination. A dose lowering technique was utilized adhering to the principles of ALARA. CT DOSE: 1494.53 mGy.cm FINDINGS: Lung bases: The device is partially visualized in the left atrial appendage. The heart is normal in s ize and without pericardial effusion. The lung bases are clear noting bibasilar scarring/atelectasis. Liver: The unenhanced liver is enlarged, measuring 22 cm in length. The liver demonstrates diffusely diminished attenuation indicating steatosis. Fatty sparing is seen adjacent to gallbladder fossa. The re is no intrahepatic biliary ductal dilatation. Gallbladder: Unremarkable. Spleen: Normal in size and attenuation. Pancreas: Unremarkable. Adrenal glands: Atrophic. Kidneys: The unenhanced kidneys are normal in size and without hydronephrosis. There are at least 3 [address] mall nonobstructing right renal calculi which measure up to 3 mm. A 2 mm nonobstructing calculus is s een on the left. No ureteral stone is identified. There is no evidence of contour deforming renal mas s lesion. Abdominal vasculature: The abdominal aorta is normal in course and caliber noting moderate atheroscle rotic calcification. Bowel: Mild fecal retention is noted throughout the colon. No bowel obstruction is seen. The appendix is well-visualized and normal. Peritoneum: There is no intraperitoneal free air or abdominal ascites. There is mild periumbilical in filtration. Lymphadenopathy: None. Pelvic viscera: The bladder, prostate, and seminal vesicles are normal as visualized. Skeletal structures: No lytic or blastic lesions are seen. Postsurgical and spondylotic change is not ed in the lumbar spine. Arthritic change is seen in the hips. Soft tissues: There is mild body wall edema. IMPRESSION: 1. No acute infectious or inflammatory findings are identified in the abdomen or pelvis. 2. Bilateral nephrolithiasis. 3. Hepatomegaly and hepatic steatosis. 4. Additional findings as above. ACT 112: Negative or not required by law. Electronically signed by: Galindo Mejia M.D. 04/06/2024 4:02 PM
--- NOTE | 2024-04-06 16:49 | XCELERA ---
[id number]
--- NOTE | 2024-04-06 17:00 | Ultrasound Report ---
US venous doppler LE BI CLINICAL HISTORY: bilateral leg swelling TECHNIQUE: Bilateral lower extremity real-time compression venous ultrasound with Color Doppler imagi ng. Utilizing real-time ultrasonic imaging multiple real time high-resolution ultrasonic images with compression and noncompression maneuvers of the deep venous system in addition to color doppler imagi ng were performed from the common femoral vein through the proximal calf veins. COMPARISON: Comparison is made to Doppler ultrasound 09/27/2014 FINDINGS/IMPRESSION: Currently there is normal compressibility of the deep venous system from the common femoral vein thro ugh the proximal calf veins. No superficial venous thrombosis is identified. ACT 112: Negative or not required by law. Electronically signed by: David Ramirez M.D. 04/06/2024 4:59 PM
[2024-04-06] MEDS ORDERED: GLUCOSE 10 TAB/TUBE PO PRN (21:38)
[2024-04-06] MEDS ORDERED: DEXTROSE 50% 50 ML SYRINGE IV PRN (21:38)
[2024-04-06] MEDS ORDERED: oxyBUTYnin chloride 5 MG TAB PO PRN (21:38)
[2024-04-06] MEDS ORDERED: MIRTAZAPINE TAB 15 MG TAB PO SCH (21:38)
[2024-04-06] MEDS ORDERED: CARBOHYDRATES FOR HYPOGLYCEMIA PO PRN (21:38)
[2024-04-06] MEDS ORDERED: GLUCOSE 40% GEL 15 GM TUBE PO PRN (21:38)
[2024-04-06] MEDS ORDERED: CYCLOBENZAPRINE HCL 10 MG TAB PO PRN (21:38)
[2024-04-06] MEDS ORDERED: GLUCAGON FOR INJ 1 MG VIAL SQ PRN (21:38)
[2024-04-06] MEDS: LACOSAMIDE 50 MG TABLET PO SCH (22:50)
[2024-04-06] MEDS: HYDROcodone/ACETAMINOPHEN 10/325 TAB PO PRN (22:50)
[2024-04-06] MEDS: MIRTAZAPINE TAB 15 MG TAB PO SCH (22:51)
[2024-04-06] MEDS: CLOPIDOGREL BISULFATE 75 MG TAB PO SCH (22:51)
[2024-04-06] MEDS: PROPRANOLOL HCL 60 MG LA CAP PO SCH (22:51)
[2024-04-06] MEDS: DESMOPRESSIN ACETATE 0.1 MG TAB PO SCH (22:52)
[2024-04-06] MEDS: metFORMIN HCL 500 MG TAB PO SCH (22:52)
[2024-04-06] MEDS: DULoxetine HCL 30 MG CAP PO SCH (22:53)
[2024-04-06] MEDS: PANTOprazole 40 MG TAB PO SCH (22:53)
[2024-04-06] MEDS: NYSTATIN CR 15 GM TUBE EXT SCH (22:53)
[2024-04-06] MEDS: CHOLECALCIFEROL 25 MCG (1000 UNITS) TAB PO SCH (22:53)
[2024-04-06] MEDS: HYDROCORTISONE 10 MG TAB PO SCH (22:53)
[2024-04-06] MEDS: DIVALPROEX DELAY RELEASE 500 MG TAB PO SCH (22:53)
[2024-04-06] MEDS: INSULIN ASPART PER UNIT CHARGE SC SCH (22:54)
[2024-04-06] MEDS: POLYETHYLENE (MIRALAX) 17 GM PACK PO SCH (22:54)
[2024-04-06] MEDS: LITHIUM CARBONATE 300 MG TAB PO SCH (22:54)
[2024-04-06] MEDS: PRAZOSIN HCL 1 MG CAP PO SCH (22:54)
[2024-04-07] MEDS: LEVOTHYROXINE SODIUM 200 MCG TABLET PO SCH (06:03)
[2024-04-07 07:26] LABS: Adenovirus PCR Not Detected (NotDetected); Bordetella parapertussis PCR Not Detected (NotDetected); Bordetella pertussis PCR Not Detected (NotDetected); Chlamydia pneumoniae PCR Not Detected (NotDetected); Coronavirus 229E PCR Not Detected (NotDetected); Coronavirus CoV-2 (COVID19)PCR Not Detected (NotDetected); Coronavirus HKU1 PCR Not Detected (NotDetected); Coronavirus NL63 PCR Not Detected (NotDetected); Coronavirus OC43PCR Not Detected (NotDetected); Human Metapneumovirus PCR Not Detected (NotDetected); Influenza A PCR Not Detected (NotDetected); Influenza B PCR Not Detected (NotDetected); Mycoplasma pneumoniae PCR Not Detected (NotDetected); Parainfluenza Virus 1 PCR Not Detected (NotDetected); Parainfluenza Virus 2 PCR Not Detected (NotDetected); Parainfluenza Virus 3 PCR Not Detected (NotDetected); Parainfluenza Virus 4 PCR Not Detected (NotDetected); Respiratory Syncytial VirusPCR Not Detected (NotDetected); Rhinovirus/Enterovirus PCR Not Detected (NotDetected)
[2024-04-07] MEDS: lisinopril 20 MG TAB PO SCH (07:49)
[2024-04-07] MEDS: POTASSIUM CHLORIDE CRTAB 20 MEQ TABCR PO SCH (07:49)
[2024-04-07] MEDS: ROSUVASTATIN CALCIUM 20 MG TAB PO SCH (07:49)
[2024-04-07] MEDS: FERROUS SULFATE 325 MG TAB PO SCH (07:50)
[2024-04-07] MEDS: HYDROCORTISONE 10 MG TAB PO SCH (07:50)
[2024-04-07] MEDS: DULoxetine HCL 60 MG CAP PO SCH (07:50)
[2024-04-07] MEDS: ASPIRIN 81 MG ECTAB PO SCH (07:51)
[2024-04-07] MEDS: amLODIPine BESYLATE 5 MG TAB PO SCH (07:51)
[2024-04-07] MEDS: TAMSULOSIN HCL 0.4 MG CAP PO SCH (07:51)
[2024-04-07] MEDS: FINASTERIDE 5 MG TAB PO SCH (07:51)
[2024-04-07] MEDS: IBUPROFEN 200 MG TAB PO PRN (08:02)
--- NOTE | 2024-04-07 11:35 | Discharge Summary ---
Date of Service April 07, 2024 Admission HPI Per Admitting Provider Andersethel Leiva (Donny) is a 53 year old male who presents to the ER with shortness of breath. He reports progressively worsening shortness of breath with weight gain and peripheral edema over the last 2 weeks. He is finding it difficult now to even walk down the pratt. He has diagnosed obstructive sleep apnea but has never used the CPAP regularly. He has used an inhaler but reports this hasn't helped. He notes his abdomen is distended over the same time period with mild suprapubic pain. He reports taking all medications as prescribed although notably has a history of surreptitious insulin use causing hypoglycemi a. No fever, chills, nasal congestion, sinus pain, nausea, vomiting, dysuria, flank pain. Principal Diagnosis sob-resolved Discharge Exam The patient is awake, alert and oriented 3, well developed and well nourished, normocephalic and atraumatic, lying in bed and in no acute distress. HEENT--PERRL, EOMI, mucous membranes and oropharynx mildly dry Neck--supple. No JVD. No bruits. Thyroid normal, trachea midline, no adenopathy. Heart--normal S1 and S2. No murmurs, rubs or gallops. Lungs--clear bilaterally, no respiratory distress, no accessory muscle use. Abdomen--normal bowel sounds and soft. Extremities--no cyanosis or clubbing. No edema. Dermatologic--normal skin turgor, normal color, no abnormal lymph nodes, no rash. Neurologic--cranial nerves II through XII grossly intact. Rheumatologic--normal range of motion. Psychiatric--normal affect. Discharge Data Allergies Allergy/AdvReac Type Severity Reaction Status Date / Time clindamycin Allergy Intermediate SWELLING Verified 04/06/24 12:22 Iodinated Contrast Media Allergy Intermediate face/eye Verified 04/06/24 12:22 swelling Quinolones Allergy Intermediate HIVES Verified 04/06/24 12:22 Consultations 04/06/24 12:01 ED Decision to Admit Stat Ordered Studies 04/06/24 13:08 US venous doppler LE BI Stat 04/06/24 14:05 CT abd pelvis wo con Stat Hospital Course (1) Shortness of breath on exertion: No pulmonary edema to suggest left sided heart failure No CXR or prior CT findings to suggest pneumonia No hypoxia Normal carboxyhemoglobin and methemoglobin levels Normal troponin 02/15/24 Transesophageal echocardiogram with small pericardial effusion Reoeat 2 d ECHO was essentially normal BNP was wnl SOB could be due to CORINA and obesity hypoventilation syndrome Plan id outpatient sleep study with pulmonology (2) Peripheral edema: No evidence of left sided heart failure, possible some of this is right sided failure due to untreated CORINA but no reason this should be acutely worse - this has been untreated for years US venous doppler ?hypothyroidism - free T4/T3 level pending Unlikely benefit from Lasix - Cr has been increase, will repeat with AM labs but suspect he should just go back on his usual dosing (3) Pituitary diabetes insipidus: Continue desmopressin (4) Pituitary hypogonadism: Continue testosterone (5) Pituitary hypothyroidism: free T4/T3 levels (6) Secondary adrenal insufficiency: Continue his usual hydrocortisone dosing (7) Recurrent seizures: Continue his usual anti-seizure medications (8) Obstructive sleep apnea: Does not wear CPAP HS therefore no need to order here (9) Hypertension: Continue his usual anti-hypertensives (10) Diabetes: History of surreptitious insulin use HbA1C 6.0 in October Plan VTE Prophylaxis - deferred pending further workup (US venous doppler pending) Diet - T2DM Disposition - observation on med/tele Total Time Total Time Spent Total Time Spent (In Minutes): 35 Discharge Plan Discharge Items Patient Disposition: Home - Self-Care Reason For Visit: SHORTNESS OF BREATH Discharge Diagnosis: CORINA Activity: Resume your previous activity Non-emergency contact: Primary Care Provider and Medical Technologist Hematology Call non-emergency contact if: you have any medication questions and your symptoms worsen Follow-up/Referrals: ProLarry MD [Primary Care Provider] - 04/13/24 3:00 pm Diet: Regular Addtl Attending Provider Instructions: Please keep your appointment with your Medical Technologist Hematology for outpatient sleep study Pending Studies at Discharge: No Stand-Alone Forms: My CREAT, Smoking Cessation Medications and DC Order Prescriptions: Continued lithium carbonate 300 mg tablet 300 mg PO AMHS alfuzosin 10 mg tablet extended release 24 hr 10 mg PO QAM Qty: 90 3RF Rx Instructions: TAKE THIS MED AFTER A MEAL fluticasone propionate [Flonase Allergy Relief] 50 mcg/actuation spray,martha pension 1 spray intranasal HS PRN (Reason: allergy symptoms) Qty: 16 0RF Rx Instructions: administer into each nostril (DME) insulin syringe-needle U-100 [BD Insulin Syringe Ultra-Fine] 1 mL 30 gauge x 1/2" syringe See Rx Instructions .Route Qty: 300 1RF Rx Instructions: use tid (DME) OneTouch Verio test strips Strip See Rx Instructions .MEDSUPPLY Qty: 150 5RF Rx Instructions: check blood sugars 4 times a day (DME) blood-glucose meter [OneTouch Verio Reflect Meter] Misc See Rx Instructions miscellaneous .MEDSUPPLY Qty: 1 0RF Rx Instructions: As directed (DME) lancets [OneTouch Delica Plus Lancet] 33 gauge misc See Rx Instructions .MEDSUPPLY Qty: 150 5RF Rx Instructions: As directed check blood sugars 4 times a day desmopressin [DDAVP] 0.1 mg tablet 0.4 mg PO BID Qty: 240 1RF levothyroxine 200 mcg tablet 200 mcg PO QAM Qty: 30 3RF potassium chloride 20 mEq tablet extended release 20 meq PO QAM Qty: 90 1RF Rx Instructions: to take with furosemide hydrocortisone 10 mg tablet See Rx Instructions PO BID Qty: 135 1RF Rx Instructions: TAKE 20mg IN THE AM AND 10mg IN THE PM. MAY DOUBLE THE DOSE IN TIMES OF STRESS. furosemide 20 mg tablet 20 mg PO QAM Qty: 30 5RF metformin 1,000 mg tablet 1,000 mg PO BID Qty: 180 3RF Hold Instructions: Per Dr Voss to hold as of 11/23/22 Norditropin FlexPro 5 mg/1.5 mL (3.3 mg/mL) pen injector 0.3 mg SQ QPM Qty: 2 5RF lacosamide 150 mg tablet 150 mg PO BID Qty: 60 5RF pantoprazole 40 mg tablet,delayed release (DR/EC) 40 mg PO BID Qty: 60 5RF cholecalciferol (vitamin D3) 50 mcg (2,000 unit) capsule 50 mcg PO QPM Qty: 90 1RF cyclobenzaprine 10 mg tablet 10 mg PO BID PRN (Reason: muscle spasm) 30 Days Qty: 60 1RF (DME) FreeStyle Rosalie 2 Sensor Kit See Rx Instructions .Route Qty: 6 3RF Rx Instructions: Change every 14 days hydrocodone-acetaminophen 10-325 mg tablet 1 tab PO Q6H PRN (Reason: Pain) (DME) FreeStyle Rosalie 2 Ashby Misc See Rx Instructions .Route Qty: 1 0RF Rx Instructions: Check blood glucose before each meal testosterone 20.25 mg/1.25 gram (1.62 %) gel in metered-dose pump 2 pump TOP PM Qty: 75 5RF Rx Instructions: apply 1 pump amount over max area of EACH upper arm and shoulder PDMP Queried ok to fill 03/17/2023 DS (DME) OneTouch Verio test strips Strip See Rx Instructions .Route Rx Instructions: Test blood sugar two times daily Rexulti 3 mg tablet 3 mg PO QAM duloxetine 30 mg capsule,delayed release(DR/EC) 30 mg PO HS mirtazapine [Remeron] 30 mg tablet See Rx Instructions .ROUTE .COMPLEX Rx Instructions: Take 30mg w/ 15mg tablet to equal 45mg at bedtime. celecoxib 200 mg capsule 200 mg PO DAILY PRN (Reason: Pain) ibuprofen [Advil] 200 mg tablet 400 mg PO Q6H PRN (Reason: Pain) Nurtec ODT 75 mg tablet,disintegrating 75 mg PO DAILY PRN (Reason: Migraine Headache) Qty: 8 6RF divalproex 500 mg tablet,delayed release (DR/EC) 1,000 mg PO BID 30 Days Qty: 120 6RF lisinopril 10 mg tablet 20 mg PO QAM albuterol sulfate [Ventolin HFA] 90 mcg/actuation HFA aerosol inhaler 2 inh inhalation Q6H PRN (Reason: shortness of breath or wheezing) Qty: 6.7 2RF insulin glargine [Lantus Solostar U-100 Insulin] 100 unit/mL (3 mL) insulin pen 14 unit SUBCUT HS Hold Instructions: Has been on hold for a few weeks per pt ferrous sulfate 325 mg (65 mg iron) tablet 325 mg PO QAM mirtazapine [Remeron] 15 mg tablet See Rx Instructions .ROUTE .COMPLEX Rx Instructions: Take 15mg w/ 30mg tablet to equal 45mg at bedtime. nystatin 100,000 unit/gram cream 1 applic topical BID Qty: 30 0RF prazosin [Minipress] 5 mg capsule 5 mg PO HS duloxetine 60 mg capsule,delayed release(DR/EC) 60 mg PO QAM acetaminophen 325 mg Tablet 650 mg PO Q6H PRN (Reason: pain) Qty: 30 0RF docusate sodium [Colace] 100 mg capsule 100 mg PO BID PRN (Reason: Constipation) rosuvastatin 20 mg tablet 20 mg PO QAM lorazepam 0.5 mg Tablet 0.5 mg PO DAILY PRN (Reason: Seizure Activity) propranolol 60 mg capsule,extended release 24 hr 60 mg PO HS clopidogrel 75 mg tablet 75 mg PO QPM amlodipine 5 mg tablet 5 mg PO QAM aspirin 81 mg tablet,delayed release (DR/EC) 81 mg PO QAM oxybutynin chloride 5 mg tablet 5 mg PO HS PRN (Reason: bladder spasms) dutasteride 0.5 mg capsule 0.5 mg PO QAM Rx Instructions: TAKE 1 CAPSULE BY MOUTH DAILY IN THE MORNING Botox 200 unit recon soln 155 unit IM UD Rx Instructions: 155 UNITS IM IN THE FACE AND NECK MUSCLES EVERY 12 WEEKS PER MIGRAINE PROTOCOL Baqsimi 3 mg/actuation spray,non-aerosol 3 mg intranasal ONCE PRN (Reason: Severe Hypoglycemia) Rx Instructions: for treatment of severe hypoglycemia, second dose may be given if patient does not respond after 15 minutes . Per caregiver, pt has never has to use this medication. Discharge Orders: Discharge Order (Routine); Ordered 04/07/24 Ordered By: Stas Bartlett Admission Data Admit Date/Time: 04/06/24 13:27 Attending Provider: Stas Bartlett Admit Provider: Trenton Carney Primary Care Provider: Larry Amaral Other Providers: Trenton Carney Other Interventions: Discharge Summary Assessment (RN) Last Done: 04/07/24 11:24 Coding Level of Care Code 53455 INP/OBS DISCH >30 MIN Diagnoses Shortness of breath on exertion R06.02 Peripheral edema R60.0 Pituitary diabetes insipidus E23.2 Pituitary hypogonadism E23.0 Pituitary hypothyroidism E03.8 Secondary adrenal insufficiency E27.49 Recurrent seizures G40.909 Obstructive sleep apnea G47.33 Hypertension I10 Hypertension type: primary hypertension Diabetes E11.9 Time Spent (min) 35
[2024-04-08] MEDS ORDERED: FUROSEMIDE 20 MG TAB PO SCH (09:00)
== END 2024-04-07 13:45 | disposition home or self-care (01) ==
LOC: ED 10:46 → 2N 10:46 → SUATTDRO 13:27 → 2N 21:15

== ENCOUNTER 2024-05-29 09:36 | Observation (INO) ==
--- NOTE | 2024-05-29 10:29 | Emergency Department Note ---
History of Present Illness General Chief complaint: Illness Stated complaint: SOB, TROUBLE BREATHING, FLUID, LETHARGIC Time Seen by Provider: 05/29/24 09:51 History of Present Illness Patient is a 53-year-old male with extensive/complicated past medical history including panhypopituitarism, UC, bipolar disorder, uncontrolled diabetes, depression, CHF, history of A-fib status post Watchman placement, hypertension, among multiple other chronic medical problems who presents to the emergency department for evaluation of multiple complaints. Patient reports that he has had problems with swelling and weight gain for several months. He states that it has been since the Watchman was placed in January. He has been on Lasix, which did not help, he states that just made him tired and give him a dry mouth. He reports swelling in his legs, always into his abdomen, and swelling in his face and hands. More recently, he has been noting a sense of shortness of breath with exertion, but feels like it is coming from his throat. He feels like his throat is obstructed when he tries to breathe out. He has an ENT appointment but not till next month. He does not have throat pain. In the last week he has noticed increased fatigue, and unexplained bruising, on the legs and abdomen. He is not currently on any blood thinners. He denies any epistaxis, bleeding gums, hematuria or blood in his stools. He has been seen by his doctors in the last several weeks. 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 Home Medications Medication Instructions Recorded Confirmed Type cyclobenzaprine 10 mg tablet 10 mg PO BID PRN muscle spasm 30 09/18/20 05/29/24 Rx days #60 tabs acetaminophen 325 mg tablet 650 mg (2 x 325 mg) PO Q6H PRN 03/01/22 05/29/24 Rx pain #30 tabs lithium carbonate 300 mg tablet 300 mg PO AMHS 06/04/22 05/29/24 History brexpiprazole 3 mg tablet (Rexulti) 3 mg PO QAM 06/23/22 05/29/24 History celecoxib 200 mg capsule 200 mg PO DAILY PRN Pain 06/23/22 05/29/24 History duloxetine 30 mg capsule,delayed 30 mg PO HS 06/23/22 05/29/24 History release mirtazapine 30 mg tablet (Remeron) 30 mg PO HS 06/23/22 05/29/24 History alfuzosin 10 mg tablet,extended 10 mg PO QAM #90 tabs 08/05/22 05/29/24 Rx release 24 hr blood sugar diagnostic (OneTouch 08/06/22 05/09/24 History Verio test strips) duloxetine 60 mg capsule,delayed 60 mg PO QAM 11/09/22 05/29/24 History release prazosin 5 mg capsule (Minipress) 5 mg PO HS 11/09/22 05/29/24 History docusate sodium 100 mg capsule 100 mg PO BID PRN Constipation 12/27/22 05/29/24 History (Colace) ibuprofen 200 mg tablet (Advil) 400 mg PO Q6H PRN Pain 02/21/23 05/29/24 History fluticasone propionate 50 1 spray intranasal HS PRN allergy 03/16/23 05/29/24 Rx mcg/actuation nasal symptoms #16 grams spray,suspension (Flonase Allergy Relief) FreeArborMetrix Rosalie 2 [place] (flash #1 ea 05/13/23 05/09/24 Rx glucose scanning reader) hydrocodone 10 mg-acetaminophen 1 tab PO UD PRN Pain 08/03/23 05/29/24 History 325 mg tablet rimegepant 75 mg disintegrating 75 mg PO DAILY PRN Migraine 09/14/23 05/29/24 Rx tablet (Nurtec ODT) Headache #8 tabs lorazepam 0.5 mg tablet 0.5 mg PO DAILY PRN Seizure 09/19/23 05/29/24 History Activity rosuvastatin 20 mg tablet 20 mg PO QAM 09/19/23 05/29/24 History blood sugar diagnostic (OneTouch #150 ea 11/22/23 05/09/24 Rx Verio test strips) blood-glucose meter (OneTouch #1 ea 11/22/23 05/09/24 Rx Verio Reflect Meter) insulin syringe-needle U-100 1 mL #300 ea 11/22/23 05/09/24 Rx 30 gauge x 1/2" (BD Insulin Syringe Ultra-Fine) lancets 33 gauge (OneTouch Jem #150 ea 11/22/23 05/09/24 Rx Plus Lancet) mirtazapine 15 mg tablet (Remeron) 15 mg PO HS 12/30/23 05/29/24 History levothyroxine 200 mcg tablet 200 mcg PO QAM #30 tabs 01/06/24 05/29/24 Rx ferrous sulfate 325 mg (65 mg 325 mg PO QAM 02/20/24 05/29/24 History iron) tablet albuterol sulfate 90 mcg/actuation 2 inh inhalation Q6H PRN shortness 02/24/24 05/29/24 Rx aerosol inhaler (Ventolin HFA) of breath or wheezing #6.7 grams nystatin 100,000 unit/gram topical 1 applic topical BID #30 grams 03/02/24 05/29/24 Rx cream metformin 1,000 mg tablet 1,000 mg PO BID #180 tabs 03/03/24 05/29/24 Rx somatropin 5 mg/1.5 mL (3.3 mg/mL) 0.3 mg (0.09 mL) subcut QPM #2 03/13/24 05/29/24 Rx subcutaneous pen injector syringes (Norditropin FlexPro) pantoprazole 40 mg tablet,delayed 40 mg PO BID #60 tabs 03/26/24 05/29/24 Rx release cholecalciferol (vitamin D3) 50 50 mcg PO QPM #90 caps 03/28/24 05/29/24 Rx mcg (2,000 unit) capsule insulin glargine 100 unit/mL (3 14 unit subcut HS 04/02/24 05/29/24 History mL) subcutaneous pen (Lantus Solostar U-100 Insulin) aspirin 81 mg tablet,delayed 81 mg PO QAM 04/06/24 05/29/24 History release clopidogrel 75 mg tablet 75 mg PO QPM 04/06/24 05/29/24 History dutasteride 0.5 mg capsule 0.5 mg PO QAM 04/06/24 05/29/24 History glucagon 3 mg/actuation nasal 3 mg intranasal ONCE PRN Severe 04/06/24 05/29/24 History spray (Baqsimi) Hypoglycemia onabotulinumtoxinA 200 unit 155 unit IM UD 04/06/24 05/29/24 History solution for injection (Botox) oxybutynin chloride 5 mg tablet 5 mg PO HS PRN bladder spasms 04/06/24 05/29/24 History propranolol 60 mg capsule,24 60 mg PO HS 04/06/24 05/29/24 History hr,extended release divalproex 500 mg tablet,delayed 1,000 mg (2 x 500 mg) PO BID 30 04/18/24 05/29/24 Rx release days #120 tabs desmopressin 0.1 mg tablet (DDAVP) 0.4 mg (4 x 0.1 mg) PO BID #240 04/26/24 05/29/24 Rx tabs lisinopril 40 mg tablet 40 mg PO QAM #90 tabs 04/27/24 05/29/24 Rx ammonium lactate 12 % topical cream 1 applic topical BID #385 grams 05/01/24 05/29/24 Rx FreeStyle Rosalie 2 Sensor (flash #6 ea 05/02/24 05/09/24 Rx glucose sensor) testosterone 2 pump topical PM #75 grams 05/04/24 05/29/24 Rx aripiprazole 5 mg tablet 5 mg PO DAILY 05/29/24 05/29/24 History hydrocortisone 10 mg tablet 10 mg PO UD 05/29/24 05/29/24 History lacosamide 100 mg tablet (Vimpat) 100 mg PO BID 05/29/24 05/29/24 History Allergies Allergy/AdvReac Type Severity Reaction Status Date / Time clindamycin Allergy Intermediate SWELLING Verified 05/09/24 12:24 Iodinated Contrast Media Allergy Intermediate face/eye Verified 05/09/24 12:24 swelling Quinolones Allergy Intermediate HIVES Verified 05/09/24 12:24 Past Med/Surg History Problem List Globus sensation Demyelinating disease Vision loss, bilateral Shortness of breath on exertion Peripheral edema Chest pain (Acute) Acute dyspnea (Acute) Atrial fibrillation Acute CHF Hypertension (Acute) Secondary adrenal insufficiency Pituitary diabetes insipidus Follows with endocrinology- on DDAVP Pituitary hypogonadism Follows with endocrinology- Pituitary hypothyroidism Follows with endocrinology- Non-occlusive coronary artery disease Lumbar stenosis with neurogenic claudication Hypoglycemia Recurrent seizures (Acute) Esophageal dysphagia Anxiety (Chronic) Mitral regurgitation Essential tremor Paresthesia Internal hemorrhoids Idiopathic polyneuropathy Lumbosacral radiculopathy Panhypopituitarism (Acute) Arachnoid cyst of posterior cranial fossa Obstructive sleep apnea Mixed hyperlipidemia Ulcerative colitis Anemia Bipolar disorder (10/11/22) Chronic migraine without aura or status migrainosus Uncontrolled type 2 diabetes mellitus with hyperglycemia Suspect low glycation index meaning his A1c is typically about 2 points lower than what his average glucose would suggest. Chronic low back pain Current use of proton pump inhibitor Severe obesity (BMI 35.0-35.9 with comorbidity) 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 Growth hormone deficiency Depression BPH with obstruction/lower urinary tract symptoms Syncope and collapse (Acute) Reason for loop recorder No recent issues since bed bound from femur fracture in Sep 2022 per patient Medical History Spondylolysis, lumbar region Seizure disorder (02/15/24) Seizure disorder Right lumbar radiculopathy PTSD (post-traumatic stress disorder) HTN (hypertension) (02/18/24) HTN (hypertension) Epidural lipomatosis Chronic left sacroiliac pain Bipolar disorder Atrial fibrillation (02/15/24) Adrenal insufficiency Pituitary adenoma Diabetes Bleeding (02/16/24) Acute blood loss anemia (02/19/24) Hyperactive gag reflex BRCA gene positive tested positive in Aug 2023 [place] > reason for up coming EGD Family history of BRCA gene mutation PTSD (post-traumatic stress disorder) Epidural lipomatosis Chronic left sacroiliac pain Benzodiazepine overdose none since Nov 2022 Presence of cardiac device Loop recorder > last checked fall 2022 Hx of fracture of foot Sep 2022- right > cast since removed > still gets painful Fracture of fibula, right, closed Cerebral concussion May 2023 during seizure > no further issues Orthostatic hypotension Pseudoseizures Sensorineural hearing loss of both ears Rectal bleeding on occasion History of COVID-19 10/2021 - fatigue; resolved. Mitral valve regurgitation follows with Dr. Phillips Vertigo Acute kidney injury September 2022 (s/p grand mal seizure) Panhypopituitarism Lower extremity edema Elevated LFTs Bilateral hand pain Pituitary neoplasm Dx'ed in 2001- s/p surgical resection and XRT Repeat surgery in 2018 secondary to tumor regrowth at [facility] Kidney stones HX Prostate mass benign Bladder mass benign Obstructive sleep apnea of adult cpap > non compliant per pt Surgical History S/P TURP (status post transurethral resection of prostate) History of lumbar fusion [facility] [place] Sept 2022 History of cardiac cath 07/2021 - no stents S/P epidural steroid injection History of lithotripsy Status post right foot surgery replaced 5th metatarsal--hardware in place History of bladder surgery remove mass History of prostate surgery remove mass History of colonoscopy History of esophagogastroduodenoscopy (EGD) History of tooth extraction History of wisdom tooth extraction History of brain surgery x2---2004 @ [facility] [place], 2018 @ [facility]--for brain tumors > caused epilepsy Family History Grandmother (Paternal) Family history of diabetes mellitus Aunt Family history of diabetes mellitus Uncle Family history of diabetes mellitus Father Prostate cancer Heart disease Mother Cardiac disorder Grandmother (Maternal) Myocardial infarction Other Asthma Cancer Hypertension No family history of adverse response to anesthesia No family history of bleeding disorder Stroke Denies family history of Ovarian cancer Breast cancer Colorectal cancer Social History Smoking Status: Never smoker Tobacco Type: Smokeless Tobacco (Dip or Chew) Second Hand Exposure: No; Do You Dip or Chew Tobacco: Yes; Hx Alcohol Use: Yes Alcohol type: beer Alcohol Intake Frequency: Never Hx Substance Use: No Preferred Language: Nicaraguan Communication Ability: Effective Communication Ability Comment: Unable to obtain due to patient condition. 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 caffeine: No (1/2 20 oz bottle of mountain dew. ) during the past year weight has: increased > 10 lbs Physical Activity Frequency: Daily Physical Activity Frequency Comment: walking, 1.5 miles daily. Seatbelt Use: always Gender Identity: Male Assistive Devices: Cane and Walker Review of Systems A total of 10 systems reviewed and were otherwise negative Physical Exam Vital Signs Vital Signs - 24 hr 05/29/24 09:36 05/29/24 10:38 05/29/24 11:00 Temperature 36.6 C Temperature Source Temporal Artery Scan Pulse Rate 87 75 75 Pulse Rate from SpO2 Sensor 75 Respiratory Rate 18 16 Blood Pressure 161/111 H 138/99 Blood Pressure Mean 127 112 Pulse Oximetry 95 93 Sepsis Recent Fever Within 48 Hours No Sepsis New/Unexplained Change in Mental Status N/A Sepsis Action Taken by Nursing No Action Required 05/29/24 11:30 05/29/24 12:00 05/29/24 12:24 Temperature Temperature Source Pulse Rate 70 77 80 Pulse Rate from SpO2 Sensor 75 80 Respiratory Rate 19 13 17 Blood Pressure 163/105 H 148/102 H Blood Pressure Mean 124 117 Pulse Oximetry 97 92 94 Sepsis Recent Fever Within 48 Hours Sepsis New/Unexplained Change in Mental Status Sepsis Action Taken by Nursing 05/29/24 12:30 05/29/24 12:42 05/29/24 13:00 Temperature Temperature Source Pulse Rate 75 75 76 Pulse Rate from SpO2 Sensor 76 74 75 Respiratory Rate 12 14 13 Blood Pressure Blood Pressure Mean Pulse Oximetry 93 94 95 Sepsis Recent Fever Within 48 Hours Sepsis New/Unexplained Change in Mental Status Sepsis Action Taken by Nursing 05/29/24 13:01 05/29/24 13:01 Temperature Temperature Source Pulse Rate Pulse Rate from SpO2 Sensor Respiratory Rate Blood Pressure 173/94 H 173/94 H Blood Pressure Mean 112 112 Pulse Oximetry Sepsis Recent Fever Within 48 Hours Sepsis New/Unexplained Change in Mental Status Sepsis Action Taken by Nursing CONSTITUTIONAL: Patient is a well-appearing 53-year-old male sitting semiupright on the gurney. No acute distress. No conversational dyspnea. EYES: Pupils equal, round, reactive to light and accommodation. EOMs intact without nystagmus. Sclera are anicteric. Periorbital edema noted. ENT: Tympanic membranes intact, with normal landmarks. External canals are clear. Oral and nasopharynx are clear. Airway is patent. No trismus. Patient is handling his secretions well. Mucous membranes are moist, no lesions, tongue and gums appear normal. NECK: No bruits auscultated. Supple without lymphadenopathy. No thyromegaly. No meningeal signs. Full active range of motion without discomfort. CARDIOVASCULAR: Regular rate and rhythm. Peripheral pulses easy to palpable. RESPIRATORY: Breath sounds equal and clear to auscultation. Referred upper airway sounds.. GI: Bowel sounds are present. Abdomen is soft, distended, nontender to percussion and palpation throughout. MUSCULOSKELETAL: Full range of motion of extremities x 4 with good strength. 2+ pitting edema to the pretibial area noted. INTEGUMENTARY: Scattered areas of ecchymosis on the legs, abdomen and flanks. NEUROLOGICAL: Alert, oriented, and cooperative. Cranial nerves, sensation and strength grossly intact. LYMPH: No lymphadenopathy. Course Course Patient was seen and assessed as above. External medical records are reviewed. He has a long, complicated history, and known history of noncompliance. He presented to the emergency department today after having a telehealth visit with his primary care provider yesterday when they suggested that he come to the ED for shortness of breath, chest tightness and peripheral edema. Some of his complaints admittedly have been chronic for the last several months, additional complaints including bruising and fatigue are new. Patient's records were reviewed, he had an echocardiogram at the end of March, noting EF 55%, no wall motion abnormalities. He reports medications have been stable. I did review cardiology notes from the end of March which note that he is still supposed to be on aspirin and Plavix but patient reports that he is not taking Plavix, has not taken it since the Watchman was placed. He is on chronic growth hormone, testosterone, thyroid and hydrocortisone for his hypopituitarism. He has been on diuretics as an outpatient for months, without changes in his peripheral edema. Case discussed with attending physician, Dr. Duran. IV lock was initiated and multiple blood tests were obtained. EKG and chest x- ray were performed. Soft tissue neck CT obtained due to his concern for throat congestion. Diagnostics, as interpreted by me: Laboratory studies: Mild, nonspecifically elevated white count at 14,000 with left shift. No anemia. Platelet count is 201,000. Coags are normal. Sodium 132, potassium 4.1, chloride 93, carbon oxide 28, BUN normal at 16, creatinine slightly elevated from baseline at 1.5. Troponin negative x 1, BNP is normal and not indicative of fulminant CHF. TSH is indicative of a corrected thyroid state. Urine microscopy likely contaminated sample, no overt indicators for infection. Valproic acid level mildly elevated, lithium level is undetectable. Urine toxicology screen positive for opioids consistent with his prescription narcotic use. ECG: Normal sinus rhythm, 81 bpm. No interval prolongation, no acute ischemic changes. Cardiac Monitoring: Cardiac monitoring: An order was placed for continuous cardiac monitoring. The monitor shows a NSR in the 60s per my interpretation. Imaging studies: Chest x-ray cardiomegaly with mild congestive change. Soft tissue neck CT notes Airways patent, with no mass or obstructive process. Patient reviewed with ED case technician, suspecting need for inpatient care. Laboratory and diagnostic imaging studies discussed with the patient and his family. He was feeling anxious from the throat sensation and was given sublingual Ativan. After review of the information above and other included data, I feel the patient requires admission/observation. Patient discussed with the [facility] hospitalist, Dr. Shafer. Differential diagnosis: Airway edema/compromise, globus sensation, reactive airway disease, pneumonia, pneumothorax, COPD, CHF, infection, cardiac ischemia, pulmonary embolism, electrolyte or metabolic abnormality, medication side effect, as well as other pathologies. Administered Medications Discontinued Medications Lorazepam (Lorazepam 1 Mg Tab) 1 mg SL NOW STA Stop: 05/29/24 12:07 Last Admin: 05/29/24 12:26 Dose: 1 mg Documented By: RASHAWN Medical Decision Making Differential Diagnosis See ED course. Medical Records Attestation: I reviewed the patient's medical records. Home Medications Current Medication List: was personally reviewed by me Laboratory Data Attestation: I reviewed the patient's lab results. 05/29/24 09:54 05/29/24 09:54 Lab Results 05/29/24 Range/Units 09:54 WBC 14.03 H (4.8-10.8) K/ul RBC 4.74 (4.70-6.10) M/uL Hgb 15.4 (14.0-18.0) g/dl Hct 43.1 (42.0-52.0) % MCV 90.9 (80.0-100.0) fL MCH 32.5 (25.0-34.0) pg MCHC 35.7 (32.0-36.0) g/dL RDW Std Deviation 46.5 H (36.4-46.3) fL RDW Coeff of Yanira 14.1 (11.5-14.5) % Plt Count 201 (130-400) K/uL MPV 9.1 L (9.4-12.4) fL Immature Gran % (Auto) 2.4 % Neut % (Auto) 65.9 % Lymph % (Auto) 22.7 % [place] % (Auto) 7.5 % Eos % (Auto) 0.9 % Baso % (Auto) 0.6 % Neut # (Auto) 9.24 H (1.40-6.50) K/uL Lymph # (Auto) 3.19 (1.20-3.40) K/uL [place]ancock # (Auto) 1.05 H (0.11-0.59) K/uL Eos # (Auto) 0.13 (0.00-0.50) K/uL Baso # (Auto) 0.08 (0.00-0.20) K/uL Immature Gran # (Auto) 0.34 H (0.01-0.20) K/uL PT 10.9 (9.0-12.0) Seconds INR 1.0 (0.9-1.1) APTT 28 (21-31) Seconds PTT Ratio 1.0 Sodium 132 L (136-145) mmol/L Potassium 4.1 (3.5-5.1) mmol/L Chloride 93 L (98-107) mmol/L Carbon Dioxide 28 (21-32) mmol/L Anion Gap 11 (3-11) BUN 16 (6-23) mg/dl Creatinine 1.51 H (0.6-1.4) mg/dl Est Cr Clr Drug Dosing 74.6 ml/min Est GFR ( Amer) 59.4 ml/min Est GFR (Non-Af Amer) 51.3 ml/min BUN/Creatinine Ratio 10.6 (10-20) Glucose 110 H (70-99(Fasting)) mg/dl Calcium 10.1 (8.6-10.3) mg/dl Total Bilirubin 0.6 (0.2-1.0) mg/dl AST 48 H (13-39) U/L ALT 47 (7-52) U/L Alkaline Phosphatase 44 (34-104) U/L Troponin I High Sens 5.7 (0-20) pg/ml B-Natriuretic Peptide 19 (0-100) pg/ml Total Protein 7.1 (6.0-8.3) gm/dl Albumin 4.8 (3.4-5.0) gm/dl Globulin 2.3 L (2.5-4.0) gm/dl Albumin/Globulin Ratio 2.1 H (0.9-2) TSH 2.525 (0.300-4.500) uIu/ml Urine Color Dark Yellow Urine Appearance Cloudy A (Clear) Urine pH 6.0 (4.5-7.5) Ur Specific [place] 1.042 H (1.000-1.030) Urine Protein 2+ H (Negative) Urine Glucose (UA) Negative (Negative) Urine Ketones 2+ H (Negative) Urine Blood Trace H (Negative) Urine Nitrite Negative (Negative) Urine Bilirubin 1+ H (Negative) Urine Urobilinogen Positive H (Negative) Ur Leukocyte Esterase Trace H (Negative) Urine WBC (Auto) 0-5 (0-5) /hpf Urine RBC (Auto) >20 H (0-2) /hpf U Hyaline Cast (Auto) 0-2 (0-2) /lpf U Epithel Cells (Auto) 0-2 (0-2) /hpf Urine Bacteria (Auto) None Seen (None Seen) Calcium Oxalate Crystal Present A (None Prsent) Urine Yeast Present A (None Prsent) Urine Opiates Screen Pos H (Neg) Ur Methadone, Qual Neg (Neg) Urine Fentanyl Screen Neg (Neg) Urine Barbiturates Neg (Neg) Valproic Acid 153 H (50-100) mcg/ml Ur Phencyclidine (PCP) Neg (Neg) U Amphetamin/Meth Scrn Neg (Neg) MDMA (Ecstasy) Screen Neg (Neg) U Benzodiazepines Scrn Neg (Neg) [place] < 0.1 L (0.6-1.2) mmol/L Ur Cocaine Metabolite Neg (Neg) U Marijuana (THC) Screen Neg (Neg) Lyme Disease Screen Negative (Negative) Imaging Data Attestation: I personally reviewed and interpreted this imaging study as follows: Radiologist's Impression: Chest X-Ray 05/29/24 10:07 XR chest 1V portable HISTORY: Dyspnea COMPARISON: Chest 05/09/2024. FINDINGS: There are low lung volumes. No pneumothorax. The heart remains mildly enlarged. There is mild central pulmonary vascular congestion without overt edema. No pleural effusions. There is normal, healed left clavicle fracture again noted. IMPRESSION: Cardiomegaly with mild congestive change. ACT 112: Negative or not required by law. Electronically signed by: Orlando Garcia M.D. 05/29/2024 12:22 PM Soft Tissue Neck CT 07/09/24 10:18 CT soft tissue neck wo con HISTORY: 53 years-old Male SENSE OF OBSTRUCTION IN THROAT globus sensation COMPARISON: Head CT 12/22/2023 TECHNIQUE: CT neck without IV contrast. A dose lowering technique was used consistent with the principals of LEONARDO. FINDINGS: Garrett cisterna magna versus arachnoid cyst redemonstrated, 5 cm. The imaged intracranial structures appear unremarkable. Unremarkable orbits and soft tissues. No acute inflammatory changes or fluid collections. No pathologically enlarged lymph nodes. Diminutive thyroid. Unremarkable parotid and submandibular glands. Mildly motion degraded study. No acute fracture. Lung apices are clear. Numerous missing teeth. Chronic appearing left clavicular fracture. IMPRESSION: 1. Unremarkable exam without acute inflammatory changes. 2. No lymphadenopathy. 3. Patent airway. ACT 112: Negative or not required by law. The above report was generated using voice recognition software. It may contain grammatical, syntax or spelling errors. Electronically signed by: Bean Tolentino M.D. 05/29/2024 12:22 PM MDM Narrative See ED course. Impression & Plan Generalized edema, Shortness of breath Discharge Plan Visit Data Chief Complaint: Illness Stated Complaint: SOB, TROUBLE BREATHING, FLUID, LETHARGIC ED Provider: Bryce Duran ED Midlevel Provider: Delmi Gay Discharge Problem: Generalized edema, Shortness of breath Patient Disposition: Being Evaluated by Hospitalist Discharge Instructions Interventions: ED Discharge Assessment Last Done: 05/29/24 15:15
[2024-05-29 10:40] LABS: Basophils # (auto) 0.08 K/uL (0.00-0.20); Basophils % (auto) 0.6 %; Eosinophils # (auto) 0.13 K/uL (0.00-0.50); Eosinophils % (auto) 0.9 %; Hematocrit (blood only) 43.1 % (42.0-52.0); Hemoglobin 15.4 g/dl (14.0-18.0); Immature Granulocytes # (auto) 0.34 K/uL (0.01-0.20); Immature Granulocytes % (auto) 2.4 %; Lymphocytes # (auto) 3.19 K/uL (1.20-3.40); Lymphocytes % (auto) 22.7 %; Mean Corpuscular Hemoglobin 32.5 pg (25.0-34.0); Mean Corpuscular Hgb Conc 35.7 g/dL (32.0-36.0); Mean Corpuscular Volume 90.9 fL (80.0-100.0); Mean Platelet Volume 9.1 fL (9.4-12.4); Monocytes # (auto) 1.05 K/uL (0.11-0.59); Monocytes % (auto) 7.5 %; Neutrophils # (auto) 9.24 K/uL (1.40-6.50); Neutrophils % (auto) 65.9 %; Platelet Count 201 K/uL (130-400); RDW Coefficient of Variation 14.1 % (11.5-14.5); RDW Standard Deviation 46.5 fL (36.4-46.3); Red Blood Count 4.74 M/uL (4.70-6.10); White Blood Count 14.03 K/ul (4.8-10.8)
[2024-05-29 10:53] LABS: Lithium < 0.1 mmol/L (0.6-1.2)
[2024-05-29 11:03] LABS: Albumin Level 4.8 gm/dl (3.4-5.0); Bilirubin,Total 0.6 mg/dl (0.2-1.0); Calcium 10.1 mg/dl (8.6-10.3); Potassium 4.1 mmol/L (3.5-5.1)
[2024-05-29 11:07] LABS: Troponin I High Sensitivity 5.7 pg/ml (0-20)
[2024-05-29 11:08] LABS: Albumin Globulin Ratio 2.1 (0.9-2); BUN Creatinine Ratio 10.6 (10-20); Creatinine Clr Calc Pharmacy 74.6 ml/min; Est GFR (African American) 59.4 ml/min; Est GFR (Non-African American) 51.3 ml/min; Globulin 2.3 gm/dl (2.5-4.0); Total Protein 7.1 gm/dl (6.0-8.3)
[2024-05-29 11:18] LABS: Amphetamines+Metham, Urine Neg (Neg); Barbiturates, Urine Neg (Neg); Benzodiazepine, Urine Neg (Neg); Cocaine, Urine Neg (Neg); Fentanyl, Urine Neg (Neg); MDMA (Ecstacy), Urine Neg (Neg); Marijuana, Urine Neg (Neg); Methadone, Urine Neg (Neg); Opiate, Urine Pos (Neg); Partial Thromboplastin Time 28 Seconds (21-31); Phencyclidine, Urine Neg (Neg); Prothrombin Time 10.9 Seconds (9.0-12.0)
[2024-05-29 11:28] LABS: Appearance Urine Cloudy (Clear); Bacteria Urine Automated None Seen (None Seen); Bilirubin Urine 1+ (Negative); Blood Urine Trace (Negative); Cast Urine Automated 0-2 /lpf (0-2); Color Urine Dark Yellow; Epithelial Cell Urine Auto 0-2 /hpf (0-2); Glucose Urine UA Negative (Negative); Ketones Urine 2+ (Negative); Leukocyte Esterase Urine Trace (Negative); Nitrite Urine Negative (Negative); Protein Urine 2+ (Negative); RBC Urine Automated >20 /hpf (0-2); Specific Gravity Urine 1.042 (1.000-1.030); Urobilinogen Urine Positive (Negative); WBC Urine Automated 0-5 /hpf (0-5)
[2024-05-29 11:38] LABS: Thyroid Stimulating Hormone 2.525 uIu/ml (0.300-4.500)
[2024-05-29 11:44] LABS: Calcium Oxalate Crystals Urine Present (None Prsent)
[2024-05-29 12:15] LABS: Valproic Acid 153 mcg/ml (50-100)
--- NOTE | 2024-05-29 12:20 | Electrocardiogram Report ---
Test Reason : Blood Pressure : / mmHG Vent. Rate : 081 BPM Atrial Rate : 081 BPM P-R Int : 162 ms QRS Dur : 090 ms QT Int : 368 ms P-R-T Axes : 067 -08 083 degrees QTc Int : 427 ms Normal sinus rhythm Normal ECG When compared with ECG of 06-APR-2024 10:51, Minimal criteria for Anterior infarct are no longer Present Confirmed by Glynn Sheth ([id number]) on 05/29/2024 12:19:42 PM Referred By: Confirmed By:Avel Sheth
--- NOTE | 2024-05-29 12:23 | CT Scan Report ---
CT soft tissue neck wo con HISTORY: 53 years-old Male SENSE OF OBSTRUCTION IN THROAT globus sensation COMPARISON: Head CT 12/22/2023 TECHNIQUE: CT neck without IV contrast. A dose lowering technique was used consistent with the princi pals of LEONARDO. FINDINGS: Garrett cisterna magna versus arachnoid cyst redemonstrated, 5 cm. The imaged intracranial structures ap pear unremarkable. Unremarkable orbits and soft tissues. No acute inflammatory changes or fluid colle ctions. No pathologically enlarged lymph nodes. Diminutive thyroid. Unremarkable parotid and submandi bular glands. Mildly motion degraded study. No acute fracture. Lung apices are clear. Numerous missin g teeth. Chronic appearing left clavicular fracture. IMPRESSION: 1. Unremarkable exam without acute inflammatory changes. 2. No lymphadenopathy. 3. Patent airway. ACT 112: Negative or not required by law. The above report was generated using voice recognition software. It may contain grammatical, syntax o r spelling errors. Electronically signed by: Bean Tolentino M.D. 05/29/2024 12:22 PM
--- NOTE | 2024-05-29 12:23 | XRay Report ---
XR chest 1V portable HISTORY: Dyspnea COMPARISON: Chest 05/09/2024. FINDINGS: There are low lung volumes. No pneumothorax. The heart remains mildly enlarged. There is mi ld central pulmonary vascular congestion without overt edema. No pleural effusions. There is normal, healed left clavicle fracture again noted. IMPRESSION: Cardiomegaly with mild congestive change. ACT 112: Negative or not required by law. Electronically signed by: Orlando Garcia M.D. 05/29/2024 12:22 PM
[2024-05-29] MEDS: LORazepam 1 MG TAB SL STA (12:26)
--- NOTE | 2024-05-29 12:57 | History & Physical Report ---
Date of Service May 29, 2024 Assessment & Plan (1) Globus sensation: Plan: Globus sensation/feeling of airway obstruction Patient extremely anxious about a feeling of throat tightness. CT of the soft tissue of the neck shows a patent airway, low lymphadenopathy, no acute inflammatory changes. He is able to speak in full sentences. No stridor or wheezing on exam. SpO2 is normal. Examination of the oropharynx is normal with no exudate, no swelling, no uvular deflection and neck is supple/soft without masses or edema. He is not hypercapnic. PPI, follow clinically CT is negative however patient does have a leukocytosis with a left shift. If no improvement in high clinical suspicion without otherwise identified source of infection, becomes febrile rescan with contrast. (2) Peripheral edema: Plan: Lower extremity swelling/weight gain Without pulmonary edema. BNP normal Patient reports Lasix has made him lightheaded or dizzy, has had 40 pounds of weight gain over the last few weeks and has been developing some dyspnea and chest tightness. No chest pain/chest tightness on admission Patient is on desmopressin at baseline. Hyponatremic with volume overload. Desmopressin dose decreased from 0.4 mg twice daily to 0.2 mg twice daily, evening dose held. Follow strict ins and outs. - Patient does have history of CHF however has no significant pulmonary edema and BNP is normal. (3) Pituitary diabetes insipidus: Plan: History of adrenal insufficiency, CDI, hypogonadism He is not hypotensive, potassium is normal. Hydrocortisone 20 mg a.m./10 mg p.m. continued, DDAVP decreased for edema 1x dose held - Somatropin/testosterone continued (4) Leukocytosis: Plan: Left shift. Afebrile. Mild, patient does not appear septic, HR normal, is not hypotensive Has some abdominal tightness/pressure in RUQ and epigastrum although no pain Ulysses is negative. AST is elevated. Liver US pending -Denies urinary symptoms -UA leukocyte esterase but no bacteria or nitrates and he denies urinary symptoms. No CVA tenderness. Is also concentrated while on DDAVP with oxalate crystals? Hypertension send patient with irritation. Follow UCx If becomes febrile or clinically declines obtain blood cultures, start empiric abx, rescan CT-neck w/ contrast. No wheezing, no SoB, and no evidence of PNA on CXR (5) Recurrent seizures: Plan: History of seizures, encephalopathy Was recently seen at [facility] for suspected status epilepticus, was transferred there from [facility] where he was initially evaluated. Was lethargic and somnolent at [facility] evaluation. Topiramate was discontinued, lacosamide was switched to 100 mg twice daily the patient remained seizure-free with gradual improvement in his lethargy. Evaluation 04/20/2024. EEG at that time was normal. Was discharged to outpatient epilepsy follow-up Continue lacosamide 100 mg twice daily, Depakote. Valproic acid level 153 on admission, dose decreased to 500 mg twice daily repeat valproic acid level morning (6) Atrial fibrillation: Plan: S/p Watchman procedure. Continue aspirin/Plavix EKG sinus on admission (7) DM type 2 (diabetes mellitus, type 2): Plan: Glargine 14 units at bedtime, SSI continued Goal BSG [id number] Metformin held (8) Acute kidney injury: Plan: Baseline creatinine around 1.0, recently up to a size around 1.4. 1.51 on admission Lisinopril held Does not appear contracted Trend daily Plan Chronic medical issues: Bipolar/anxiety/depression: Continue aripiprazole, brexpiprazole, duloxetine, lithium, mirtazapine History of migraine: BPH with LUTS: Continue alfuzosin, bladder scan as needed DVT prophylaxis: Medical prophylaxis deferred due to history of recurrent bleeding. SCDs Disposition: PCU, seizure precautions CODE STATUS: Full code Diet: Heart healthy, DM 2, fluid restricted History of Present Illness Primary Care Provider: Larry Amaral MD Anders is a 53-year-old male with a past medical history of panhypopituitary is him, ulcerative colitis, bipolar disorder, DM 2, CHF, A-fib s/p Watchman procedure, hypertension who presents to the ER with weight gain and leg swelling since his watchman was placed 4 months ago. Has not improved with Lasix. Has been with progressive dyspnea on exertion, and feels like his throat is tight and makes it difficult to breathe. PER ER: Lower extremity edema. Has not improved with Lasix daily as outpatient. Leukocytosis of 14 with neutrophilic predominance and slight left shift Creatinine baseline approximately 1-1.4, elevated at 1.51 on admission AST slightly elevated at 48, bilirubin/ALT/alk phos normal BNP is not elevated, 19. TSH is normal UA is with protein, ketones, trace blood, bilirubin, urobilinogen, leukocyte esterase, calcium oxalate crystals but without bacteria and nitrates Valproic acid level elevated at 153. Serum level subtherapeutic/undetectable Chest x-ray: Cardiomegaly with mild central pulmonary vascular congestion but no edema or effusions Seen at bedside. Nondistressed. Reports he has continued and longstanding issues with leg swelling in his legs, arms, and fingers recently has had some feeling of shortness of breath. He feels that his throat was very tight and he was having difficulty breathing earlier today and thinks Ativan helped this. Denies wheezing. He does feel he got a little short of breath recently when laying down and when sleeping. More short of breath on exertion. Has trialed Lasix with no improvement in his leg swelling and which made him lightheaded and dizzy. Has not had any desmopressin adjustments in over 10 years. He reports he is taking lithium, aripiprazole, brexiprazole, cymbalta, and mirtazepine and follows with psychiatry as outpatient for these. Took all his AM meds At time bedside assessment he denies chest pain, chest pressure. He has not been taking aspirin/Plavix as he ran out of these. No abdominal pain. Denies dysuria. Denies wheezing. Was seen for sedation and potential seizure activity at [facility] recently, no sedation or seizure activity since his medications were changed. Topamax was discontinued. Denies fever, chills. No cough. No sinus congestion. Does have his bowels. No blood/melena/juan colored stools. Denies abdominal pain. Notes abdominal distention/feels tight mostly in epigastric quadrant. Medical History: Reviewed Medications: Reviewed Surgical History: Reviewed Family history: Reviewed Allergies: Reviewed Social History: REviewed Code Status: Full Allergies Allergy/AdvReac Type Severity Reaction Status Date / Time clindamycin Allergy Intermediate SWELLING Verified 05/09/24 12:24 Iodinated Contrast Media Allergy Intermediate face/eye Verified 05/09/24 12:24 swelling Quinolones Allergy Intermediate HIVES Verified 05/09/24 12:24 Home Medications Medication Instructions Recorded Confirmed Type cyclobenzaprine 10 mg tablet 10 mg PO BID PRN muscle spasm 30 09/18/20 05/29/24 Rx days #60 tabs acetaminophen 325 mg tablet 650 mg (2 x 325 mg) PO Q6H PRN 03/01/22 05/29/24 Rx pain #30 tabs lithium carbonate 300 mg tablet 300 mg PO AMHS 06/04/22 05/29/24 History brexpiprazole 3 mg tablet (Rexulti) 3 mg PO QAM 06/23/22 05/29/24 History celecoxib 200 mg capsule 200 mg PO DAILY PRN Pain 06/23/22 05/29/24 History duloxetine 30 mg capsule,delayed 30 mg PO HS 06/23/22 05/29/24 History release mirtazapine 30 mg tablet (Remeron) 30 mg PO HS 06/23/22 05/29/24 History alfuzosin 10 mg tablet,extended 10 mg PO QAM #90 tabs 08/05/22 05/29/24 Rx release 24 hr blood sugar diagnostic (OneTouch 08/06/22 05/09/24 History Verio test strips) duloxetine 60 mg capsule,delayed 60 mg PO QAM 11/09/22 05/29/24 History release prazosin 5 mg capsule (Minipress) 5 mg PO HS 11/09/22 05/29/24 History docusate sodium 100 mg capsule 100 mg PO BID PRN Constipation 12/27/22 05/29/24 History (Colace) ibuprofen 200 mg tablet (Advil) 400 mg PO Q6H PRN Pain 02/21/23 05/29/24 History fluticasone propionate 50 1 spray intranasal HS PRN allergy 03/16/23 05/29/24 Rx mcg/actuation nasal symptoms #16 grams spray,suspension (Flonase Allergy Relief) FreeStbiNu Rosalie 2 Penrose (flash #1 ea 05/13/23 05/09/24 Rx glucose scanning reader) hydrocodone 10 mg-acetaminophen 1 tab PO UD PRN Pain 08/03/23 05/29/24 History 325 mg tablet rimegepant 75 mg disintegrating 75 mg PO DAILY PRN Migraine 09/14/23 05/29/24 Rx tablet (Nurtec ODT) Headache #8 tabs lorazepam 0.5 mg tablet 0.5 mg PO DAILY PRN Seizure 09/19/23 05/29/24 History Activity rosuvastatin 20 mg tablet 20 mg PO QAM 09/19/23 05/29/24 History blood sugar diagnostic (OneTouch #150 ea 11/22/23 05/09/24 Rx Verio test strips) blood-glucose meter (OneTouch #1 ea 11/22/23 05/09/24 Rx Verio Reflect Meter) insulin syringe-needle U-100 1 mL #300 ea 11/22/23 05/09/24 Rx 30 gauge x 1/2" (BD Insulin Syringe Ultra-Fine) lancets 33 gauge (OneTouch Delica #150 ea 11/22/23 05/09/24 Rx Plus Lancet) mirtazapine 15 mg tablet (Remeron) 15 mg PO HS 12/30/23 05/29/24 History levothyroxine 200 mcg tablet 200 mcg PO QAM #30 tabs 01/06/24 05/29/24 Rx ferrous sulfate 325 mg (65 mg 325 mg PO QAM 02/20/24 05/29/24 History iron) tablet albuterol sulfate 90 mcg/actuation 2 inh inhalation Q6H PRN shortness 02/24/24 05/29/24 Rx aerosol inhaler (Ventolin HFA) of breath or wheezing #6.7 grams nystatin 100,000 unit/gram topical 1 applic topical BID #30 grams 03/02/24 05/29/24 Rx cream metformin 1,000 mg tablet 1,000 mg PO BID #180 tabs 03/03/24 05/29/24 Rx somatropin 5 mg/1.5 mL (3.3 mg/mL) 0.3 mg (0.09 mL) subcut QPM #2 03/13/24 05/29/24 Rx subcutaneous pen injector syringes (Norditropin FlexPro) pantoprazole 40 mg tablet,delayed 40 mg PO BID #60 tabs 03/26/24 05/29/24 Rx release cholecalciferol (vitamin D3) 50 50 mcg PO QPM #90 caps 03/28/24 05/29/24 Rx mcg (2,000 unit) capsule insulin glargine 100 unit/mL (3 14 unit subcut HS 04/02/24 05/29/24 History mL) subcutaneous pen (Lantus Solostar U-100 Insulin) aspirin 81 mg tablet,delayed 81 mg PO QAM 04/06/24 05/29/24 History release clopidogrel 75 mg tablet 75 mg PO QPM 04/06/24 05/29/24 History dutasteride 0.5 mg capsule 0.5 mg PO QAM 04/06/24 05/29/24 History glucagon 3 mg/actuation nasal 3 mg intranasal ONCE PRN Severe 04/06/24 05/29/24 History spray (Baqsimi) Hypoglycemia onabotulinumtoxinA 200 unit 155 unit IM UD 04/06/24 05/29/24 History solution for injection (Botox) oxybutynin chloride 5 mg tablet 5 mg PO HS PRN bladder spasms 04/06/24 05/29/24 History propranolol 60 mg capsule,24 60 mg PO HS 04/06/24 05/29/24 History hr,extended release divalproex 500 mg tablet,delayed 1,000 mg (2 x 500 mg) PO BID 30 04/18/24 05/29/24 Rx release days #120 tabs desmopressin 0.1 mg tablet (DDAVP) 0.4 mg (4 x 0.1 mg) PO BID #240 04/26/24 05/29/24 Rx tabs lisinopril 40 mg tablet 40 mg PO QAM #90 tabs 04/27/24 05/29/24 Rx ammonium lactate 12 % topical cream 1 applic topical BID #385 grams 05/01/24 05/29/24 Rx FreeStyle Rosalie 2 Sensor (flash #6 ea 05/02/24 05/09/24 Rx glucose sensor) testosterone 2 pump topical PM #75 grams 05/04/24 05/29/24 Rx aripiprazole 5 mg tablet 5 mg PO DAILY 05/29/24 05/29/24 History hydrocortisone 10 mg tablet 10 mg PO UD 05/29/24 05/29/24 History lacosamide 100 mg tablet (Vimpat) 100 mg PO BID 05/29/24 05/29/24 History Past Med/Surg History Problem List (Updated 05/29/24 @ 12:58 by Taye Shafer MD) Globus sensation Demyelinating disease Vision loss, bilateral Shortness of breath on exertion Peripheral edema Chest pain (Acute) Acute dyspnea (Acute) Atrial fibrillation Acute CHF Hypertension (Acute) Secondary adrenal insufficiency Pituitary diabetes insipidus Follows with endocrinology- on DDAVP Pituitary hypogonadism Follows with endocrinology- Pituitary hypothyroidism Follows with endocrinology- Non-occlusive coronary artery disease Lumbar stenosis with neurogenic claudication Hypoglycemia Recurrent seizures (Acute) Esophageal dysphagia Anxiety (Chronic) Mitral regurgitation Essential tremor Paresthesia Internal hemorrhoids Idiopathic polyneuropathy Lumbosacral radiculopathy Panhypopituitarism (Acute) Arachnoid cyst of posterior cranial fossa Obstructive sleep apnea Mixed hyperlipidemia Ulcerative colitis Anemia Bipolar disorder (10/11/22) Chronic migraine without aura or status migrainosus Uncontrolled type 2 diabetes mellitus with hyperglycemia Suspect low glycation index meaning his A1c is typically about 2 points lower than what his average glucose would suggest. Chronic low back pain Current use of proton pump inhibitor Severe obesity (BMI 35.0-35.9 with comorbidity) 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 Growth hormone deficiency Depression BPH with obstruction/lower urinary tract symptoms Syncope and collapse (Acute) Reason for loop recorder No recent issues since bed bound from femur fracture in Sep 2022 per patient Medical History Spondylolysis, lumbar region Seizure disorder (02/15/24) Seizure disorder Right lumbar radiculopathy PTSD (post-traumatic stress disorder) HTN (hypertension) (02/18/24) HTN (hypertension) Epidural lipomatosis Chronic left sacroiliac pain Bipolar disorder Atrial fibrillation (02/15/24) Adrenal insufficiency Pituitary adenoma Diabetes Bleeding (02/16/24) Acute blood loss anemia (02/19/24) Hyperactive gag reflex BRCA gene positive Family history of BRCA gene mutation PTSD (post-traumatic stress disorder) Epidural lipomatosis Chronic left sacroiliac pain Benzodiazepine overdose Presence of cardiac device Hx of fracture of foot Fracture of fibula, right, closed Cerebral concussion Orthostatic hypotension Pseudoseizures Sensorineural hearing loss of both ears Rectal bleeding History of COVID-19 Mitral valve regurgitation Vertigo Acute kidney injury Panhypopituitarism Lower extremity edema Elevated LFTs Bilateral hand pain Pituitary neoplasm Kidney stones Prostate mass Bladder mass Obstructive sleep apnea of adult Surgical History S/P TURP (status post transurethral resection of prostate) History of lumbar fusion History of cardiac cath S/P epidural steroid injection History of lithotripsy Status post right foot surgery History of bladder surgery History of prostate surgery History of colonoscopy History of esophagogastroduodenoscopy (EGD) History of tooth extraction History of wisdom tooth extraction History of brain surgery Family History Grandmother (Paternal) Family history of diabetes mellitus Aunt Family history of diabetes mellitus Uncle Family history of diabetes mellitus Father Prostate cancer Heart disease Mother Cardiac disorder Grandmother (Maternal) Myocardial infarction Other Asthma Cancer Hypertension No family history of adverse response to anesthesia No family history of bleeding disorder Stroke Denies family history of Ovarian cancer Breast cancer Colorectal cancer Social History Smoking Status: Former smoker Tobacco Type: Smokeless Tobacco (Dip or Chew) Second Hand Exposure: No; Do You Dip or Chew Tobacco: Yes; Hx Alcohol Use: Yes Alcohol type: beer Alcohol Intake Frequency: Never Hx Substance Use: No Preferred Language: Japanese Communication Ability: Effective Communication Ability Comment: Unable to obtain due to patient condition. 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 caffeine: No (1/2 20 oz bottle of mountain dew. ) during the past year weight has: increased > 10 lbs Physical Activity Frequency: Daily Physical Activity Frequency Comment: walking, 1.5 miles daily. Seatbelt Use: always Gender Identity: Male Assistive Devices: Glasses Physical Exam Physical Exam: General: A&Ox3. NAD. Cooperative. HEENT: Atraumatic, normocephalic. Posterior oropharynx is without erythema or discharge. Uvula is midline. Palpation of the neck is without any soft tissue masses or swelling Pulm: CTAB A&P. -wheezes, -rales, -rhonchi. Symmetrical chest rise. No increased work of breathing. No respiratory distress. No stridor is noted Cardiac: RRR, -mrg. Radial pulses intact and symmetrical. No JVD is present Abdominal: Softly distended. Endorses pressure in the abdomen epigastric/RUQ, but denies pain/Ulysses negative. BS present. Extremities: Warm, dry. Some pitting edema with soft tissue swelling Results & Data Results & Data Vital Signs (Past 12 Hours) Vital Signs Temp Pulse Resp BP Pulse Ox 05/29/24 09:36 36.6 C 87 18 161/111 H 95 PG Care Time/CCT Total # of Minutes Spent Total Time Spent with Patient: Total time spent is greater than 50% in coordination of care (as documented) at patient's floor/unit and/or counseling patient: Coding Level of Care Code 02460 INT INP/OBS CARE 3/75MIN Diagnoses Globus sensation R09.A2 Peripheral edema R60.0 Pituitary diabetes insipidus E23.2 Leukocytosis D72.829 Recurrent seizures G40.909 Atrial fibrillation I48.91 DM type 2 (diabetes mellitus, type 2) E11.9 Acute kidney injury N17.9
[2024-05-29] MEDS ORDERED: LORazepam 2 MG in SYRINGE 1 ML IV PRN (13:24)
[2024-05-29] MEDS ORDERED: DEXTROSE 50% 50 ML SYRINGE IV PRN (13:32)
[2024-05-29] MEDS ORDERED: GLUCOSE 40% GEL 15 GM TUBE PO PRN (13:32)
[2024-05-29] MEDS ORDERED: GLUCOSE 10 TAB/TUBE PO PRN (13:32)
[2024-05-29] MEDS ORDERED: CARBOHYDRATES FOR HYPOGLYCEMIA PO PRN (13:32)
[2024-05-29] MEDS ORDERED: GLUCAGON FOR INJ 1 MG VIAL SQ PRN (13:32)
[2024-05-29] MEDS ORDERED: LORazepam 1 MG/1 ML SYR ED Inj Use IV PRN (14:02)
--- NOTE | 2024-05-29 15:28 | Ultrasound Report ---
ULTRASOUND RIGHT UPPER QUADRANT ABDOMEN CLINICAL HISTORY: Elevated hepatic transaminases. Right upper quadrant discomfort. COMPARISON STUDY: Abdominal CT dictated 04/06/2024. TECHNIQUE: Real-time, grayscale, and color flow sonography of the right upper quadrant of the abdomen was performed. Images are reviewed in the transverse and longitudinal planes. FINDINGS: Liver: The liver is enlarged and demonstrates heterogeneously increased echotexture indicating severe steatosis. Note that this degrades to penetration of the liver. Fatty sparing is seen adjacent to ga llbladder fossa. There is no intrahepatic biliary ductal dilatation. The main portal vein is patent. Gallbladder: The gallbladder is contracted and not well-visualized. No shadowing gallstones are seen. No pericholecystic fluid is identified. A sonographic Moore's sign is reportedly absent. The common bile duct measures up to 0.4 cm in diameter. Pancreas: Not visualized due to overlying bowel gas. Right kidney: Survey images of the right kidney demonstrate normal size and echotexture. There is no hydronephrosis. A formal or shadowing calculus is seen in the lower pole. Ascites: None. IMPRESSION: 1. Hepatomegaly and severe steatosis. Note that this degrades acoustic penetration of the liver. 2. No gallstones are identified. Note that the gallbladder was not well assessed. 3. Right-sided nephrolithiasis. 4. Nonvisualization of the pancreas. ACT 112: Negative or not required by law. Electronically signed by: Galindo Mejia M.D. 05/29/2024 3:27 PM
[2024-05-29] MEDS ORDERED: ALBUTEROL HFA 8 GM INHALER INH PRN (15:38)
[2024-05-29] MEDS ORDERED: oxyBUTYnin chloride 5 MG TAB PO PRN (15:38)
[2024-05-29] MEDS ORDERED: DOCUSATE SODIUM 100 MG CAP PO PRN (15:38)
[2024-05-29] MEDS ORDERED: HYDROcodone/ACETAMINOPHEN 10/325 TAB PO PRN (15:38)
[2024-05-29] MEDS ORDERED: LORazepam 2 MG/1 ML VIAL IV PRN (15:47)
[2024-05-29] MEDS: INSULIN ASPART PER UNIT CHARGE SC SCH (17:17)
[2024-05-29] MEDS: PIPERACILLIN/TAZOBACTAM 4.5 GM in DEXTROSE 5% MINI-B 100 ML IV ONE (21:29)
[2024-05-29] MEDS: LACTATED RINGER'S 1,000 ML IV SCH (21:30)
[2024-05-29] MEDS: LANTUS PER UNIT CHARGE SQ SCH (21:31)
[2024-05-29] MEDS: MIRTAZAPINE TAB 15 MG TAB PO SCH (21:32)
[2024-05-29] MEDS: LITHIUM CARBONATE 300 MG TAB PO SCH (21:33)
[2024-05-29] MEDS: DULoxetine HCL 30 MG CAP PO SCH (21:33)
[2024-05-29] MEDS: PANTOprazole 40 MG TAB PO SCH (21:34)
[2024-05-29] MEDS: CLOPIDOGREL BISULFATE 75 MG TAB PO SCH (21:34)
[2024-05-29] MEDS: PRAZOSIN HCL 1 MG CAP PO SCH (21:34)
[2024-05-29] MEDS: HYDROCORTISONE 10 MG TAB PO SCH (21:35)
[2024-05-29] MEDS: CHOLECALCIFEROL 25 MCG (1000 UNITS) TAB PO SCH (21:36)
[2024-05-29] MEDS: ACETAMINOPHEN 325 MG TAB PO PRN (21:48)
[2024-05-29] MEDS: LACOSAMIDE 50 MG TABLET PO SCH (21:53)
[2024-05-30] MEDS: PIPERACILLIN/TAZOBACTAM 4.5 GM in DEXTROSE 5% MINI-B 100 ML IV SCH (01:54)
[2024-05-30] MEDS: LEVOTHYROXINE SODIUM 200 MCG TABLET PO SCH (05:13)
--- NOTE | 2024-05-30 07:14 | Hospitalist Progress Note ---
Date of Service May 30, 2024 Assessment & Plan (1) Globus sensation: Plan: Globus sensation/feeling of airway obstruction CT of the soft tissue of the neck shows a patent airway, low lymphadenopathy, no acute inflammatory changes. He is able to speak in full sentences. No stridor or wheezing on exam. Examination of the oropharynx was normal with no exudate, no swelling, no uvular deflection and neck is supple/soft without masses or edema. He is not hypercapnic. PPI, toxic encephalopathy on presentation, divalproex acid is supratherapeutic, dose reduced pt did not offer any additional complaints of this (2) Peripheral edema: Plan: Lower extremity swelling/weight gain, h/o HFpEF, typically on lasix daily however recently stopped due to dizziness BNP normal Patient has had 40 pounds of weight gain over the last few weeks and has been developing some dyspnea and chest tightness. No chest pain/chest tightness on admission Patient is on desmopressin at baseline. Hyponatremic with volume overload. Desmopressin dose 0.2 mg twice daily, pt states has tolerated brand necessary lasix in the past, was given iv dose, 05/30/24. 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 continued, DDAVP decreased for edema 1x dose held - Somatropin/testosterone continued (4) Recurrent seizures: Plan: History of seizures, now toxic encephalopathy from seizure meds Was recently seen at [facility] for suspected status epilepticus, was transferred there from [facility] where he was initially evaluated. Was lethargic and somnolent at [facility] evaluation. Topiramate was discontinued, lacosamide was switched to 100 mg twice daily the patient remained seizure-free with gradual improvement in his lethargy. Evaluation 04/20/2024. EEG at that time was normal. Was discharged to outpatient epilepsy follow-up Continue lacosamide 100 mg twice daily, Depakote increased to 1000 bid at [facility] at discharge . Valproic acid level 153 on admission, dose decreased to 500 mg twice daily repeat valproic acid level morning (5) Atrial fibrillation: Plan: S/p Watchman procedure. Continue aspirin/Plavix, last dose of plavix September- continue aspirin indefinitely EKG sinus on admission (6) DM type 2 (diabetes mellitus, type 2): Plan: Glargine 14 units at bedtime, SSI continued Goal BSG 691231 Metformin held (7) Acute kidney injury: Plan: Baseline creatinine around 1.0, recently up to around 1.4. 1.51 on admission Lisinopril held with edema one dose lasix given in pm 05/30/24 Plan Chronic medical issues: Bipolar/anxiety/depression: Continue aripiprazole, brexpiprazole, duloxetine, lithium, mirtazapine History of migraine: BPH with LUTS: Continue alfuzosin, bladder scan as needed DVT prophylaxis: Medical prophylaxis deferred due to history of recurrent bleeding. SCDs CODE STATUS: Full code Admission and Anticipated Discharge Date Admission Date: May 29, 2024 Subjective pt was lethargic but arousable, did get over weekend that could account for some diet intake that may have encouraged fluid buildup pt is also with elevated valproic acid level which could cause fatigue Physical Exam Physical Exam: after a few moments was awake alert and appropriate cardiac exam is regular lungs are clear extremities are with 1+ b/l edema Results & Data Results & Data Vital Signs (Past 12 Hours) Vital Signs Temp Pulse Pulse Resp BP Pulse Ox O2 Del Method 05/30/24 02:19 97.3 F L 84 20 124/80 93 Room Air 05/30/24 00:00 95 H 05/29/24 23:30 97.2 F L 98 H 20 118/77 93 Oxymask 05/29/24 20:00 Oxymask 05/29/24 20:00 97.7 F 83 20 128/92 95 Oxymask O2 Flow Rate 05/30/24 02:19 05/30/24 00:00 05/29/24 23:30 2 05/29/24 20:00 2 05/29/24 20:00 2 Laboratory Results reviewed cbc reviewed chemistry PG Care Time/CCT Total # of Minutes Spent Total Time Spent with Patient: Total time spent is greater than 50% in coordination of care (as documented) at patient's floor/unit and/or counseling patient: Coding Level of Care Code 46585 SUB INP/OBS CARE 3/50MIN Diagnoses Globus sensation R09.A2 Peripheral edema R60.0 Pituitary diabetes insipidus E23.2 Recurrent seizures G40.909 Atrial fibrillation I48.91 DM type 2 (diabetes mellitus, type 2) E11.9 Acute kidney injury N17.9
[2024-05-30 08:05] LABS: Basophils # (auto) 0.06 K/uL (0.00-0.20); Basophils % (auto) 0.6 %; Eosinophils # (auto) 0.11 K/uL (0.00-0.50); Eosinophils % (auto) 1.2 %; Hematocrit (blood only) 39.3 % (42.0-52.0); Hemoglobin 13.8 g/dl (14.0-18.0); Immature Granulocytes # (auto) 0.18 K/uL (0.01-0.20); Immature Granulocytes % (auto) 1.9 %; Lymphocytes # (auto) 2.57 K/uL (1.20-3.40); Lymphocytes % (auto) 27.1 %; Mean Corpuscular Hemoglobin 31.7 pg (25.0-34.0); Mean Corpuscular Hgb Conc 35.1 g/dL (32.0-36.0); Mean Corpuscular Volume 90.3 fL (80.0-100.0); Mean Platelet Volume 8.9 fL (9.4-12.4); Monocytes # (auto) 0.63 K/uL (0.11-0.59); Monocytes % (auto) 6.6 %; Neutrophils # (auto) 5.95 K/uL (1.40-6.50); Neutrophils % (auto) 62.6 %; Platelet Count 149 K/uL (130-400); RDW Coefficient of Variation 13.8 % (11.5-14.5); RDW Standard Deviation 45.1 fL (36.4-46.3); Red Blood Count 4.35 M/uL (4.70-6.10)
[2024-05-30 08:28] LABS: Albumin Globulin Ratio 2.2 (0.9-2); Albumin Level 4.3 gm/dl (3.4-5.0); BUN Creatinine Ratio 8.5 (10-20); Bilirubin,Total 0.5 mg/dl (0.2-1.0); Creatinine Clr Calc Pharmacy 80.2 ml/min; Est GFR (Non-African American) 55.2 ml/min; Potassium 3.9 mmol/L (3.5-5.1); Total Protein 6.3 gm/dl (6.0-8.3)
[2024-05-30] MEDS: ASPIRIN 81 MG ECTAB PO SCH (08:34)
[2024-05-30] MEDS: HYDROCORTISONE 10 MG TAB PO SCH (08:34)
[2024-05-30] MEDS: FINASTERIDE 5 MG TAB PO SCH (08:34)
[2024-05-30] MEDS: FERROUS SULFATE 325 MG TAB PO SCH (08:34)
[2024-05-30] MEDS: DIVALPROEX DELAY RELEASE 500 MG TAB PO SCH (08:34)
[2024-05-30] MEDS: ARIPiprazole 5 MG TAB PO SCH (08:34)
[2024-05-30] MEDS: DESMOPRESSIN ACETATE 0.1 MG TAB PO SCH (08:34)
[2024-05-30] MEDS: DULoxetine HCL 60 MG CAP PO SCH (08:34)
[2024-05-30] MEDS: ROSUVASTATIN CALCIUM 20 MG TAB PO SCH (08:38)
[2024-05-30] MEDS: FUROSEMIDE 40 MG/4 ML VIAL IV ONE (16:53)
[2024-05-31 06:26] LABS: Basophils # (auto) 0.04 K/uL (0.00-0.20); Basophils % (auto) 0.4 %; Eosinophils # (auto) 0.13 K/uL (0.00-0.50); Eosinophils % (auto) 1.2 %; Hematocrit (blood only) 43.6 % (42.0-52.0); Hemoglobin 14.7 g/dl (14.0-18.0); Immature Granulocytes % (auto) 0.9 %; Mean Corpuscular Hemoglobin 31.3 pg (25.0-34.0); Mean Corpuscular Hgb Conc 33.7 g/dL (32.0-36.0); Mean Corpuscular Volume 92.8 fL (80.0-100.0); Mean Platelet Volume 8.7 fL (9.4-12.4); Monocytes # (auto) 0.76 K/uL (0.11-0.59); Neutrophils # (auto) 7.08 K/uL (1.40-6.50); Neutrophils % (auto) 65.5 %; Platelet Count 143 K/uL (130-400); RDW Coefficient of Variation 14.1 % (11.5-14.5); RDW Standard Deviation 47.2 fL (36.4-46.3); White Blood Count 10.81 K/ul (4.8-10.8)
[2024-05-31 06:49] LABS: Albumin Globulin Ratio 2.1 (0.9-2); Albumin Level 4.7 gm/dl (3.4-5.0); BUN Creatinine Ratio 8.6 (10-20); Bilirubin,Total 0.5 mg/dl (0.2-1.0); Calcium 10.1 mg/dl (8.6-10.3); Creatinine Clr Calc Pharmacy 68.5 ml/min; Est GFR (African American) 54.2 ml/min; Est GFR (Non-African American) 46.7 ml/min; Globulin 2.2 gm/dl (2.5-4.0); Potassium 3.9 mmol/L (3.5-5.1); Total Protein 6.9 gm/dl (6.0-8.3)
[2024-05-31] MEDS ORDERED: hydrALAZINE HCL 20 MG/ML VIAL IV PRN (08:37)
[2024-05-31] MEDS: PROPRANOLOL HCL 20 MG TAB PO ONE (09:39)
--- NOTE | 2024-05-31 14:14 | Discharge Summary ---
Discharge Summary Date of Service May 31, 2024 Principal Dx & Hospital Course #1 = Principal Diagnosis (1) Toxic encephalopathy: toxic encephalopathy on presentation, divalproex acid is supratherapeutic, dose reduced. encephalopathy resolved Globus sensation/feeling of airway obstruction CT of the soft tissue of the neck shows a patent airway, low lymphadenopathy, no acute inflammatory changes. He is able to speak in full sentences. No stridor or wheezing on exam. Examination of the oropharynx was normal with no exudate, no swelling, no uvular deflection and neck is supple/soft without masses or edema. He is not hypercapnic. PPI, Pt declined to hung as once he was alert we could not confirm time for Barium swallow, I did reach out to pcp office and sent clinical task to try to schedule this (2) Peripheral edema: Lower extremity swelling/weight gain, h/o HFpEF, typically on lasix daily however recently stopped due to dizziness BNP normal Patient has had 40 pounds of weight gain over the last few weeks and has been developing some dyspnea and chest tightness. No chest pain/chest tightness on admission Patient is on desmopressin at baseline. Hyponatremic with volume overload. Desmopressin dose 0.2 mg twice daily, pt states has tolerated brand necessary lasix in the past, was given iv dose, 05/30/24. 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 continued, DDAVP decreased for edema 1x dose held - Somatropin/testosterone continued (4) Recurrent seizures: History of seizures, now toxic encephalopathy from seizure meds Was recently seen at [facility] for suspected status epilepticus, was transferred there from [facility] where he was initially evaluated. Was lethargic and somnolent at [facility] evaluation. Topiramate was discontinued, lacosamide was switched to 100 mg twice daily the patient remained seizure-free with gradual improvement in his lethargy. Evaluation 04/20/2024. EEG at that time was normal. Was discharged to outpatient epilepsy follow-up Continue lacosamide 100 mg twice daily, Depakote increased to 1000 bid at [facility] at discharge . Valproic acid level 153 on admission, dose decreased to 500 mg twice daily repeat valproic acid level in therapeutic range (5) Atrial fibrillation: S/p Watchman procedure. Continue aspirin/Plavix, last dose of plavix September- continue aspirin indefinitely EKG sinus on admission (6) DM type 2 (diabetes mellitus, type 2): Glargine 14 units at bedtime, SSI continued Goal BSG [id number] Metformin restarted (7) Acute kidney injury: Baseline creatinine around 1.0, recently up to around 1.4. 1.51 on admission Lisinopril restarted at a lower dose with edema one dose lasix given in pm 05/30/24, with good resolution. 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 Has not improved with Lasix. Has been with progressive dyspnea on exertion, and feels like his throat is tight and makes it difficult to breathe. PER ER: Lower extremity edema. Has not improved with Lasix daily as outpatient. Leukocytosis of 14 with neutrophilic predominance and slight left shift Creatinine baseline approximately 1-1.4, elevated at 1.51 on admission AST slightly elevated at 48, bilirubin/ALT/alk phos normal BNP is not elevated, 19. TSH is normal UA is with protein, ketones, trace blood, bilirubin, urobilinogen, leukocyte esterase, calcium oxalate crystals but without bacteria and nitrates Valproic acid level elevated at 153. Serum level subtherapeutic/undetectable Chest x-ray: Cardiomegaly with mild central pulmonary vascular congestion but no edema or effusions Seen at bedside. Nondistressed. Reports he has continued and longstanding issues with leg swelling in his legs, arms, and fingers recently has had some feeling of shortness of breath. He feels that his throat was very tight and he was having difficulty breathing earlier today and thinks Ativan helped this. Denies wheezing. He does feel he got a little short of breath recently when laying down and when sleeping. More short of breath on exertion. Has trialed Lasix with no improvement in his leg swelling and which made him lightheaded and dizzy. Has not had any desmopressin adjustments in over 10 years. He reports he is taking lithium, aripiprazole, brexiprazole, cymbalta, and mirtazepine and follows with psychiatry as outpatient for these. Took all his AM meds At time bedside assessment he denies chest pain, chest pressure. He has not been taking aspirin/Plavix as he ran out of these. No abdominal pain. Denies dysuria. Denies wheezing. Was seen for sedation and potential seizure activity at [facility] recently, no sedation or seizure activity since his medications were changed. Topamax was discontinued. Denies fever, chills. No cough. No sinus congestion. Does have his bowels. No blood/melena/juan colored stools. Denies abdominal pain. Notes abdominal distention/feels tight mostly in epigastric quadrant. Medical History: Reviewed Medications: Reviewed Surgical History: Reviewed Family history: Reviewed Allergies: Reviewed Social History: REviewed Code Status: Full Updated Medication List Medication Instructions Recorded Confirmed Type acetaminophen 325 mg tablet 650 mg (2 x 325 mg) PO Q6H PRN 03/01/22 05/29/24 Rx pain #30 tabs lithium carbonate 300 mg tablet 300 mg PO AMHS 06/04/22 05/29/24 History brexpiprazole 3 mg tablet (Rexulti) 3 mg PO QAM 06/23/22 05/29/24 History celecoxib 200 mg capsule 200 mg PO DAILY PRN Pain 06/23/22 05/29/24 History duloxetine 30 mg capsule,delayed 30 mg PO HS 06/23/22 05/29/24 History release mirtazapine 30 mg tablet (Remeron) 30 mg PO HS 06/23/22 05/29/24 History blood sugar diagnostic (OneTouch 08/06/22 05/09/24 History Verio test strips) duloxetine 60 mg capsule,delayed 60 mg PO QAM 11/09/22 05/29/24 History release prazosin 5 mg capsule (Minipress) 5 mg PO HS 11/09/22 05/29/24 History docusate sodium 100 mg capsule 100 mg PO BID PRN Constipation 12/27/22 05/29/24 History (Colace) fluticasone propionate 50 1 spray intranasal HS PRN allergy 03/16/23 05/29/24 Rx mcg/actuation nasal symptoms #16 grams spray,suspension (Flonase Allergy Relief) FreeKunlun Rosalie 2 [place] (flash #1 ea 05/13/23 05/09/24 Rx glucose scanning reader) hydrocodone 10 mg-acetaminophen 1 tab PO UD PRN Pain 08/03/23 05/29/24 History 325 mg tablet rimegepant 75 mg disintegrating 75 mg PO DAILY PRN Migraine 09/14/23 05/29/24 Rx tablet (Nurtec ODT) Headache #8 tabs lorazepam 0.5 mg tablet 0.5 mg PO DAILY PRN Seizure 09/19/23 05/29/24 History Activity rosuvastatin 20 mg tablet 20 mg PO QAM 09/19/23 05/29/24 History blood sugar diagnostic (OneTouch #150 ea 11/22/23 05/09/24 Rx Verio test strips) blood-glucose meter (OneTouch #1 ea 11/22/23 05/09/24 Rx Verio Reflect Meter) insulin syringe-needle U-100 1 mL #300 ea 11/22/23 05/09/24 Rx 30 gauge x 1/2" (BD Insulin Syringe Ultra-Fine) lancets 33 gauge (OneTouch Delica #150 ea 11/22/23 05/09/24 Rx Plus Lancet) mirtazapine 15 mg tablet (Remeron) 15 mg PO HS 12/30/23 05/29/24 History levothyroxine 200 mcg tablet 200 mcg PO QAM #30 tabs 01/06/24 05/29/24 Rx ferrous sulfate 325 mg (65 mg 325 mg PO QAM 02/20/24 05/29/24 History iron) tablet albuterol sulfate 90 mcg/actuation 2 inh inhalation Q6H PRN shortness 02/24/24 05/29/24 Rx aerosol inhaler (Ventolin HFA) of breath or wheezing #6.7 grams nystatin 100,000 unit/gram topical 1 applic topical BID #30 grams 03/02/24 05/29/24 Rx cream metformin 1,000 mg tablet 1,000 mg PO BID #180 tabs 03/03/24 05/29/24 Rx somatropin 5 mg/1.5 mL (3.3 mg/mL) 0.3 mg (0.09 mL) subcut QPM #2 03/13/24 05/29/24 Rx subcutaneous pen injector syringes (Norditropin FlexPro) pantoprazole 40 mg tablet,delayed 40 mg PO BID #60 tabs 03/26/24 05/29/24 Rx release cholecalciferol (vitamin D3) 50 50 mcg PO QPM #90 caps 03/28/24 05/29/24 Rx mcg (2,000 unit) capsule insulin glargine 100 unit/mL (3 14 unit subcut HS 04/02/24 05/29/24 History mL) subcutaneous pen (Lantus Solostar U-100 Insulin) aspirin 81 mg tablet,delayed 81 mg PO QAM 04/06/24 05/29/24 History release dutasteride 0.5 mg capsule 0.5 mg PO QAM 04/06/24 05/29/24 History glucagon 3 mg/actuation nasal 3 mg intranasal ONCE PRN Severe 04/06/24 05/29/24 History spray (Baqsimi) Hypoglycemia onabotulinumtoxinA 200 unit 155 unit IM UD 04/06/24 05/29/24 History solution for injection (Botox) oxybutynin chloride 5 mg tablet 5 mg PO HS PRN bladder spasms 04/06/24 05/29/24 History propranolol 60 mg capsule,24 60 mg PO HS 04/06/24 05/29/24 History hr,extended release ammonium lactate 12 % topical cream 1 applic topical BID #385 grams 05/01/24 05/29/24 Rx FreeStyle Rosalie 2 Sensor (flash #6 ea 05/02/24 05/09/24 Rx glucose sensor) testosterone 2 pump topical PM #75 grams 05/04/24 05/29/24 Rx aripiprazole 5 mg tablet 5 mg PO DAILY 05/29/24 05/29/24 History lacosamide 100 mg tablet (Vimpat) 100 mg PO BID 05/29/24 05/29/24 History Lasix 40 mg tablet (furosemide) 40 mg PO UD #20 tabs 05/31/24 Rx clopidogrel 75 mg tablet 75 mg PO QPM #30 tabs 05/31/24 05/29/24 Rx desmopressin 0.1 mg tablet (DDAVP) 0.2 mg (2 x 0.1 mg) PO BID #240 05/31/24 05/29/24 Rx tabs divalproex 500 mg tablet,delayed 500 mg PO BID 30 days #120 tabs 05/31/24 05/29/24 Rx release hydrocortisone 10 mg tablet 10 mg PO UD #0 tabs 05/31/24 05/29/24 Rx Hospital Stay Data Consultations 05/29/24 12:53 ED Decision to Admit Stat Diagnostic Imagining Performed 05/29/24 10:18 CT soft tissue neck wo con Stat 05/29/24 13:55 US liver Urgent Pending Results Patient Have Any Pending Studies at Discharge: No Discharge Instructions Given to Patient (Per Discharging Provider) some of your sleepiness was due to your divalproex level being too high and your dose was reduced to 500 bid with recheck of level in the normal range, continued surveillance maybe helpful for further dose adjustment some of your fluid retention is due to not using lasix and some maybe due to fluid and salt intake, please take brand necessary lasix daily, but if your are dizzy or have fluid weight loss, reduce dose to three times a week and if still symptomatic stop all toghther, if the dose needs to be adjusted always notify Dr Amaral's office for advice Total Time Total Time Spent Total Time Spent (In Minutes): it required greater than 30 minutes to create this discharge summary Coding Level of Care Code 94590 INP/OBS DISCH >30 MIN Diagnoses Toxic encephalopathy G92.9 Peripheral edema R60.0 Pituitary diabetes insipidus E23.2 Recurrent seizures G40.909 Atrial fibrillation I48.91 DM type 2 (diabetes mellitus, type 2) E11.9 Acute kidney injury N17.9
[2024-05-31 15:16] LABS: Codeine Urine NEGATIVE ng/mL (<50); Hydrocodone Urine NEGATIVE ng/mL (<50); Hydromor Urine NEGATIVE ng/mL (<50); Morphine Urine NEGATIVE ng/mL (<50); Norhydrocodone Conf Ur NEGATIVE ng/mL (<50); Noroxycodone Urine NEGATIVE ng/mL (<50); Oxycodone Urine NEGATIVE ng/mL (<50); Oxymorph Urine NEGATIVE ng/mL (<50)
[2024-05-31] MEDS ORDERED: PROPRANOLOL HCL 60 MG LA CAP PO SCH (21:00)
== END 2024-05-31 13:10 | disposition home or self-care (01) ==
LOC: 2W 09:36 → ED 09:36 → SUATTDRO 13:24 → 2W 15:15

== ENCOUNTER 2024-10-23 13:50 | Inpatient (IN) ==
--- NOTE | 2024-10-23 14:07 | Emergency Department Note ---
Impression & Plan Acute hypercapnic respiratory failure, Shortness of breath ED Provider Note NAME: LINSEY VIRAMONTES Jr AGE: 54 SEX: M : 1970 ARRIVES VIA: Ambulance INFORMANT: Patient ED PROVIDER(S): James Estrada DO CHIEF COMPLAINT: Shortness of breath HPI: Patient is a 54-year-old male with a past medical history of arachnoid cyst, mitral regurg, COPD, asthma, respiratory failure, seizure disorder who presents to the ER for shortness of breath that started 2 days ago. He admits to worsening cough and productive sputum. He denies any fevers. No chest pain. No belly pain. No nausea, vomiting, or diarrhea. He admits to feeling weak and rundown. No dysuria, urgency, or frequency. ADDITIONAL HISTORY OBTAINED: Per HPI Chronic Medical/Social Conditions Affecting Care: Per HPI PAST MEDICAL HISTORY:See Below PAST SURGICAL HISTORY:See Below FAMILY HISTORY:See Below SOCIAL HISTORY:See Below HOME MEDICATIONS:See Below ALLERGIES:See Below VITALS:See Below PHYSICAL EXAMINATION: GENERAL: Sitting up in bed, alert, lethargic, on 3 L nasal cannula EYE EXAM: normal conjunctiva. PERRL and EOM's grossly intact. OROPHARYNX: no exudate, no erythema, lips, buccal mucosa, and tongue normal and mucous membranes are moist NECK: supple, no nuchal rigidity, no adenopathy, non-tender LUNGS: Wheezing bilaterally. Normal chest wall mechanics HEART: no murmurs, S1 normal and S2 normal ABDOMEN: abdomen soft, non-tender, normo-active bowel sounds, no masses, no rebound or guarding. UPPER EXTREMITIES: upper extremities are grossly normal. LOWER EXTREMITIES: No pitting edema. NEURO EXAM: Normal sensorium, cranial nerves II-XII grossly intact, normal speech, no gross weakness of arms, no gross weakness of legs. No drift. Finger to nose intact. Gross sensation intact. MEDICAL DECISION MAKING: Patient is a 54-year-old male who presents ER with above-stated complaint. IV was established and blood work was obtained. Upon presentation he was on 4 L nasal cannula. He was very lethargic. Does admit to upper respiratory symptoms. Labs show leukocytosis of 16,000. Mild anemia 11.6. VBG with a pH 7.3 and a CO2 of 65. Patient was placed on BiPAP with this. BMP with mild hyponatremia 129. LFTs and bilirubin were unremarkable. Lipase was normal. Pro-Vincent was normal. Viral panel was normal. Chest x-ray with subtle infiltrates at the bases. Patient was covered with IV antibiotics. He was updated bedside. He was given neb treatments as well as steroids. Discussed case with the hospitalist for further evaluation management treatment. Consults/Care Managements Discussions: Per MDM Triage Nursing notes reviewed. Limited review of prior medical records performed Vital Signs: reviewed and remarkable for hypoxic Differential diagnosis: Differential diagnoses includes but is not limited to pneumonia, bronchitis, COPD/Asthma exacerbation, pneumothorax, pulmonary embolism, congestive heart failure, acute coronary syndrome ER treatment provided: See below Diagnostics interpreted by me include EKG and cardiac monitoring as listed below: -Cardiac Monitoring: An order was placed for continuous cardiac monitoring. The monitor shows a rate of 80 with sinus rhythm. -ECG: Sinus rhythm rate of 74 Normal axis No PVCs QTc 428 -Laboratory studies:Interpreted by me as stated above in MDM and shown below. Imaging studies: Xrays: As interpreted by me: Portable AP upright 1 view of the chest shows subtle opacities at the bases CTs show: none Procedures:none Critical Care: I have personally spent 40 minutes of critical care time in the direct management of this patient. This includes bedside care, interpretation of diagnostic studies, and testing, discussion with consultants, patient, and family members, and other required patient management activities. This 40 minutes is in excess of all separately billable procedures. Past Med/Surg History Problem List (Updated 10/23/24 @ 19:33 by James Estrada DO) Shortness of breath (Acute) Acute hypercapnic respiratory failure (Acute) COPD exacerbation Acute hypercapnic respiratory failure Seizure disorder Chronic respiratory failure with hypoxia Obesity Abnormal PFTs (pulmonary function tests) Abnormal chest CT Dyspnea (Acute) COPD (chronic obstructive pulmonary disease) CKD (chronic kidney disease), stage III Globus sensation Demyelinating disease Vision loss, bilateral Shortness of breath on exertion Peripheral edema Hypertension (Acute) Secondary adrenal insufficiency Pituitary hypogonadism Follows with endocrinology- Pituitary hypothyroidism Follows with endocrinology- Non-occlusive coronary artery disease Lumbar stenosis with neurogenic claudication Esophageal dysphagia Anxiety (Chronic) Mitral regurgitation Essential tremor Paresthesia Idiopathic polyneuropathy Lumbosacral radiculopathy Panhypopituitarism (Acute) Arachnoid cyst of posterior cranial fossa Obstructive sleep apnea Mixed hyperlipidemia Ulcerative colitis Anemia (Acute) Bipolar disorder (10/11/22) Chronic migraine without aura or status migrainosus Uncontrolled type 2 diabetes mellitus with hyperglycemia Suspect low glycation index meaning his A1c is typically about 2 points lower than what his average glucose would suggest. Chronic low back pain Current use of proton pump inhibitor Severe obesity (BMI 35.0-35.9 with comorbidity) 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 Growth hormone deficiency Depression BPH with obstruction/lower urinary tract symptoms Medical History Toxic encephalopathy Chest pain Acute dyspnea Acute CHF Hypoglycemia Syncope and collapse Internal hemorrhoids Atrial fibrillation (02/15/24) Recurrent seizures Pituitary diabetes insipidus Spondylolysis, lumbar region Right lumbar radiculopathy HTN (hypertension) Bipolar disorder Adrenal insufficiency Pituitary adenoma Diabetes Bleeding (02/16/24) Acute blood loss anemia (02/19/24) Hyperactive gag reflex BRCA gene positive Family history of BRCA gene mutation PTSD (post-traumatic stress disorder) Epidural lipomatosis Chronic left sacroiliac pain Benzodiazepine overdose Presence of cardiac device Hx of fracture of foot Fracture of fibula, right, closed Cerebral concussion Orthostatic hypotension Pseudoseizures Sensorineural hearing loss of both ears Rectal bleeding History of COVID-19 Mitral valve regurgitation Vertigo Panhypopituitarism Lower extremity edema Elevated LFTs Bilateral hand pain Pituitary neoplasm Kidney stones Prostate mass Bladder mass Obstructive sleep apnea of adult Surgical History S/P TURP (status post transurethral resection of prostate) History of lumbar fusion History of cardiac cath S/P epidural steroid injection History of lithotripsy Status post right foot surgery History of bladder surgery History of prostate surgery History of colonoscopy History of esophagogastroduodenoscopy (EGD) History of tooth extraction History of wisdom tooth extraction History of brain surgery Family History Grandmother (Paternal) Family history of diabetes mellitus Aunt Family history of diabetes mellitus Uncle Family history of diabetes mellitus Father Prostate cancer Heart disease Mother Cardiac disorder Grandmother (Maternal) Myocardial infarction Other Asthma Cancer Hypertension No family history of adverse response to anesthesia No family history of bleeding disorder Stroke Denies family history of Ovarian cancer Breast cancer Colorectal cancer Social History (Reviewed 10/05/24 @ 14:48 by DALI Jean Smoking Status: Former smoker Tobacco Type: Smokeless Tobacco (Dip or Chew) Second Hand Exposure: No; Do You Dip or Chew Tobacco: No; Tobacco Cessation Education Requested by Patient: No Hx Alcohol Use: Yes Alcohol type: beer Alcohol Intake Frequency: Never Hx Substance Use: No Preferred Language: [place] Communication Ability: Effective Communication Ability Comment: Unable to obtain due to patient condition. Visual Impairment: Limited Hearing Ability: Normal Record Producer Required: No Beliefs That Will Affect Care: None marital status: Single Current Living Situation: Spouse Current Living Situation Comment: lives w/ and daughter current occupational status: disabled How many Children do You have: 3 Other Information That Helps Us Care for You: No Feels Safe at Home: Yes Safety Concerns: Feels Safe At This Time Childhood Exposure to Second-Hand Smoke: Yes (parents smoked) Diet: regular Diet Comment: going to be starting low carb/low calorie diet. caffeine: No (1/2 20 oz bottle of mountain dew. ) during the past year weight has: increased > 10 lbs Physical Activity Frequency: Daily Physical Activity Frequency Comment: walking, 1.5 miles daily. Seatbelt Use: always Gender Identity: Male Assistive Devices: Glasses Allergies Allergies Allergy/AdvReac Type Severity Reaction Status Date / Time clindamycin Allergy Intermediate SWELLING Verified 10/05/24 14:40 Iodinated Contrast Media Allergy Intermediate face/eye Verified 10/05/24 14:40 swelling Quinolones Allergy Intermediate HIVES Verified 10/05/24 14:40 Home Meds Home Medications Medication Instructions Recorded Confirmed lithium carbonate 300 mg tablet 300 mg PO AMHS 06/04/22 10/05/24 celecoxib 200 mg capsule 200 mg PO DAILY PRN Pain 06/23/22 10/05/24 duloxetine 30 mg capsule,delayed 30 mg PO HS 06/23/22 10/05/24 release mirtazapine 30 mg tablet (Remeron) 30 mg PO HS 06/23/22 10/05/24 blood sugar diagnostic (OneTouch 08/06/22 10/05/24 Verio test strips) duloxetine 60 mg capsule,delayed 60 mg PO QAM 11/09/22 10/05/24 release prazosin 5 mg capsule (Minipress) 5 mg PO HS 11/09/22 10/05/24 lorazepam 0.5 mg tablet 0.5 mg PO DAILY PRN Seizure 09/19/23 10/05/24 Activity ferrous sulfate 325 mg (65 mg 325 mg PO QAM 02/20/24 10/05/24 iron) tablet aspirin 81 mg tablet,delayed 81 mg PO QAM 04/06/24 10/05/24 release dutasteride 0.5 mg capsule 0.5 mg PO QAM 04/06/24 10/05/24 glucagon 3 mg/actuation nasal 3 mg intranasal ONCE PRN Severe 04/06/24 10/05/24 spray (Baqsimi) Hypoglycemia oxybutynin chloride 5 mg tablet 5 mg PO HS PRN bladder spasms 04/06/24 10/05/24 aripiprazole 5 mg tablet 5 mg PO DAILY 05/29/24 10/05/24 insulin glargine 100 unit/mL (3 12 unit subcut HS 07/19/24 10/05/24 mL) subcutaneous pen (Lantus Solostar U-100 Insulin) furosemide 20 mg tablet 20 mg PO DAILY 10/03/24 10/05/24 hydrocodone 7.5 mg-acetaminophen 1 tab PO Q6H PRN 10/03/24 10/05/24 325 mg tablet levetiracetam 1,000 mg tablet 1,000 mg PO Q12H 10/03/24 10/05/24 potassium chloride 20 mEq 20 meq PO DAILY 10/03/24 10/05/24 tablet,extended release semaglutide (weight loss) 0.25 0.25 mg subcut Q7D 10/03/24 10/05/24 mg/0.5 mL subcutaneous pen injector (Gerardo) trazodone 100 mg tablet 100 mg PO .qhs 10/03/24 10/05/24 divalproex 250 mg tablet,delayed 1,000 mg PO DAILY 10/05/24 10/05/24 release Previous Rx's Medication Instructions Recorded fluticasone propionate 50 1 spray intranasal HS PRN allergy 03/16/23 mcg/actuation nasal symptoms #16 grams spray,suspension (Flonase Allergy Relief) FreeStyle Rosalie 2 [place] (flash #1 ea 05/13/23 glucose scanning reader) rimegepant 75 mg disintegrating 75 mg PO DAILY PRN Migraine 09/14/23 tablet (Nurtec ODT) Headache #8 tabs blood sugar diagnostic (OneTouch #150 ea 11/22/23 Verio test strips) blood-glucose meter (OneTouch #1 ea 11/22/23 Verio Reflect Meter) insulin syringe-needle U-100 1 mL #300 ea 11/22/23 30 gauge x 1/2" (BD Insulin Syringe Ultra-Fine) lancets 33 gauge (OneTouch Delica #150 ea 11/22/23 Plus Lancet) albuterol sulfate 90 mcg/actuation 2 inh inhalation Q6H PRN shortness 02/24/24 aerosol inhaler (Ventolin HFA) of breath or wheezing #6.7 grams metformin 1,000 mg tablet 1,000 mg PO BID #180 tabs 03/03/24 somatropin 5 mg/1.5 mL (3.3 mg/mL) 0.3 mg (0.09 mL) subcut QPM #2 03/13/24 subcutaneous pen injector syringes (Norditropin FlexPro) FreeStyle Rosalie 2 Sensor (flash #6 ea 05/02/24 glucose sensor) testosterone 2 pump topical PM #75 grams 05/04/24 clopidogrel 75 mg tablet 75 mg PO QPM #30 tabs 05/31/24 nystatin 100,000 unit/gram topical 1 applic topical BID #30 grams 06/19/24 cream ipratropium 0.5 mg-albuterol 3 mg 3 ml inhalation QID PRN wheezing 07/31/24 (2.5 mg base)/3 mL nebulization #90 mL soln nebulizers (Compact Compressor #1 ea 07/31/24 Nebulizer) desmopressin 0.1 mg tablet (DDAVP) 0.4 mg (4 x 0.1 mg) PO BID #240 08/24/24 tabs metoprolol succinate 25 mg 25 mg PO DAILY #30 tabs 08/29/24 tablet,extended release 24 hr Botox 200 unit injection See Rx Instructions IM .COMPLEX #1 09/18/24 (onabotulinumtoxinA) ea cholecalciferol (vitamin D3) 50 50 mcg PO QPM #90 caps 09/19/24 mcg (2,000 unit) capsule lacosamide 150 mg tablet 150 mg PO BID #60 tabs 09/19/24 rosuvastatin 20 mg tablet 20 mg PO QAM #90 tabs 09/19/24 pantoprazole 40 mg tablet,delayed 40 mg PO BID #60 tabs 09/21/24 release hydrocortisone 10 mg tablet 10 mg PO UD #135 tabs 10/16/24 levothyroxine 200 mcg tablet 200 mcg PO QAM #30 tabs 10/22/24 pen needle, diabetic 32 gauge x #100 ea 10/23/24" (BD Vy 2nd Gen Pen Needle) Results & Data (ED) Vital Signs Vital Signs - 24 hr 10/23/24 13:54 10/23/24 14:00 10/23/24 14:02 Temperature 36.6 C Temperature Source Oral Pulse Rate 77 76 Pulse Rate [Finger] Pulse Rhythm Regular Pulse Rhythm [Finger] Pulse Strength Normal Respiratory Rate 18 Respiratory Effort / Characteristics Non-Labored Spontaneous Respiratory Depth Normal Respiratory Pattern Blood Pressure 135/84 Blood Pressure [Right Arm] Blood Pressure Mean 101 Blood Pressure Mean [Right Arm] Blood Pressure Position Sitting Pulse Oximetry 95 90 Oxygen Delivery Method Nasal Cannula Room Air Nasal Cannula Oxygen Flow Rate 4 0 Fraction of Inspired Oxygen SaO2/FiO2 Ratio Sepsis Recent Fever Within 48 Hours No Sepsis New/Unexplained Change in Mental Status N/A Sepsis Action Taken by Nursing No Action Required Oxygen Flow Rate - Titration 4 Pulse Oximetry Post Tiitration 98 10/23/24 14:02 10/23/24 14:02 10/23/24 15:01 Temperature Temperature Source Pulse Rate 73 71 Pulse Rate [Finger] 73 Pulse Rhythm Regular Pulse Rhythm [Finger] Pulse Strength Respiratory Rate 18 17 Respiratory Effort / Characteristics Spontaneous Respiratory Depth Deep Respiratory Pattern Regular Blood Pressure Blood Pressure [Right Arm] Blood Pressure Mean Blood Pressure Mean [Right Arm] Blood Pressure Position Pulse Oximetry 97 98 99 Oxygen Delivery Method Nasal Cannula Nasal Cannula Oxygen Flow Rate 4 4 Fraction of Inspired Oxygen 40 SaO2/FiO2 Ratio Sepsis Recent Fever Within 48 Hours Sepsis New/Unexplained Change in Mental Status Sepsis Action Taken by Nursing Oxygen Flow Rate - Titration Pulse Oximetry Post Tiitration 10/23/24 15:25 10/23/24 16:00 10/23/24 16:28 Temperature Temperature Source Pulse Rate Pulse Rate [Finger] 69 69 69 Pulse Rhythm Pulse Rhythm [Finger] Regular Pulse Strength Respiratory Rate 22 22 17 Respiratory Effort / Characteristics Spontaneous Respiratory Depth Respiratory Pattern Regular Regular Blood Pressure Blood Pressure [Right Arm] 122/83 109/79 Blood Pressure Mean Blood Pressure Mean [Right Arm] 96 89 Blood Pressure Position Pulse Oximetry 100 100 99 Oxygen Delivery Method BiPAP BiPAP BiPAP Oxygen Flow Rate Fraction of Inspired Oxygen 40 40 40 SaO2/FiO2 Ratio 250 250 Sepsis Recent Fever Within 48 Hours Sepsis New/Unexplained Change in Mental Status Sepsis Action Taken by Nursing Oxygen Flow Rate - Titration Pulse Oximetry Post Tiitration 10/23/24 16:42 Temperature Temperature Source Pulse Rate Pulse Rate [Finger] 82 Pulse Rhythm Pulse Rhythm [Finger] Pulse Strength Respiratory Rate 18 Respiratory Effort / Characteristics Spontaneous Respiratory Depth Respiratory Pattern Regular Blood Pressure Blood Pressure [Right Arm] 132/84 Blood Pressure Mean Blood Pressure Mean [Right Arm] 100 Blood Pressure Position Pulse Oximetry 99 Oxygen Delivery Method BiPAP Oxygen Flow Rate Fraction of Inspired Oxygen 40 SaO2/FiO2 Ratio 247 Sepsis Recent Fever Within 48 Hours Sepsis New/Unexplained Change in Mental Status Sepsis Action Taken by Nursing Oxygen Flow Rate - Titration Pulse Oximetry Post Tiitration Laboratory Data 10/23/24 14:05 10/23/24 14:05 Lab Results 10/23/24 10/23/24 10/23/24 Range/Units 14:00 14:05 14:13 WBC 16.38 H (4.8-10.8) K/ul RBC 3.87 L (4.70-6.10) M/uL Hgb 11.6 L (14.0-18.0) g/dl POC Hgb 12.2 L (14.0-18.0) g/dl Hct 35.7 L (42.0-52.0) % POC Hct 36 L (42-52) % MCV 92.2 (80.0-100.0) fL MCH 30.0 (25.0-34.0) pg MCHC 32.5 (32.0-36.0) g/dL RDW Std Deviation 50.6 H (36.4-46.3) fL RDW Coeff of Yanira 15.2 H (11.5-14.5) % Plt Count 179 (130-400) K/uL MPV 8.7 L (9.4-12.4) fL Immature Gran % (Auto) 1.3 % Neut % (Auto) 86.5 % Lymph % (Auto) 7.2 % [place] % (Auto) 4.6 % Eos % (Auto) 0.2 % Baso % (Auto) 0.2 % Neut # (Auto) 14.17 H (1.40-6.50) K/uL Lymph # (Auto) 1.18 L (1.20-3.40) K/uL [place] # (Auto) 0.75 H (0.11-0.59) K/uL Eos # (Auto) 0.03 (0.00-0.50) K/uL Baso # (Auto) 0.04 (0.00-0.20) K/uL Immature Gran # (Auto) 0.21 H (0.01-0.20) K/uL POC pH (7.35-7.45) POC pCO2 (35-46) mmHg POC pO2 (80-95) mmHg POC HCO3 (19-24) clovis/L POC Base Excess (-9-1.8) clovis/L POC ABG O2 Sat (90-95) % VBG pH 7.30 L (7.36-7.41) VBG pCO2 65 H (38-50) mmHg VBG pO2 31 mmHg VBG HCO3 32 mmol/L VBG O2 Saturation < 60.0 % VBG Base Excess 4.0 mEq/L POC Sodium 128 L (135-144) mmol/L Sodium 129 L (136-145) mmol/L POC Potassium 5.1 H (3.3-5.0) mmol/L Potassium 5.1 (3.5-5.1) mmol/L POC Chloride 88 L (101-112) mmol/L Chloride 90 L (98-107) mmol/L Carbon Dioxide 31 (21-32) mmol/L POC Total CO2 27 (24-31) mmol/L Anion Gap 8 (3-11) POC Anion Gap 19.0 (16-25) mmol/L POC BUN 15 (7-18) mg/dl BUN 15 (6-23) mg/dl Creatinine 1.38 (0.6-1.4) mg/dl POC Creatinine 1.5 H (0.6-1.3) mg/dl Est Cr Clr Drug Dosing 82.4 ml/min eGFR 60.02 BUN/Creatinine Ratio 10.9 (10-20) Glucose 156 H (70-99(Fasting)) mg/dl POC Glucose (other) 158 H (70-99) mg/dl Calcium 9.1 (8.6-10.3) mg/dl POC Ioniz Calcium Jeny 1.18 (1.12-1.32) mmol/l Total Bilirubin 0.4 (0.2-1.0) mg/dl AST 9 L (13-39) U/L ALT 8 (7-52) U/L Alkaline Phosphatase 45 (34-104) U/L Troponin I High Sens 4.9 (0-20) pg/ml Total Protein 6.1 (6.0-8.3) gm/dl Albumin 4.1 (3.4-5.0) gm/dl Globulin 2.0 L (2.5-4.0) gm/dl Albumin/Globulin Ratio 2.0 (0.9-2) Lipase 19 (11-82) U/L Procalcitonin < 0.02 (0-0.5) ng/ml Adenovirus (PCR) Not Detected (NotDetected) B. pertussis DNA (PCR) Not Detected (NotDetected) B.parapertussis DNA PCR Not Detected (NotDetected) C. pneumoniae DNA (PCR) Not Detected (NotDetected) Coronavirus OC43 (PCR) Not Detected (NotDetected) Coronavirus HKU1 (PCR) Not Detected (NotDetected) Coronavirus 229E (PCR) Not Detected (NotDetected) SARS-CoV-2 (PCR) Not Detected (NotDetected) Coronavirus NL63 (PCR) Not Detected (NotDetected) Human Metapneumovir PCR Not Detected (NotDetected) Influenza Type A (PCR) Not Detected (NotDetected) Influenza Type B (PCR) Not Detected (NotDetected) M. pneumoniae (PCR) Not Detected (NotDetected) Parainfluenza 1 (PCR) Not Detected (NotDetected) Parainfluenza 2 (PCR) Not Detected (NotDetected) Parainfluenza 3 (PCR) Not Detected (NotDetected) Parainfluenza 4 (PCR) Not Detected (NotDetected) RSV (PCR) Not Detected (NotDetected) Entero/Rhino (PCR) Not Detected (NotDetected) 10/23/24 Range/Units 16:59 WBC (4.8-10.8) K/ul RBC (4.70-6.10) M/uL Hgb (14.0-18.0) g/dl POC Hgb 13.6 L (14.0-18.0) g/dl Hct (42.0-52.0) % POC Hct 40 L (42-52) % MCV (80.0-100.0) fL MCH (25.0-34.0) pg MCHC (32.0-36.0) g/dL RDW Std Deviation (36.4-46.3) fL RDW Coeff of Yanira (11.5-14.5) % Plt Count (130-400) K/uL MPV (9.4-12.4) fL Immature Gran % (Auto) % Neut % (Auto) % Lymph % (Auto) % [place] % (Auto) % Eos % (Auto) % Baso % (Auto) % Neut # (Auto) (1.40-6.50) K/uL Lymph # (Auto) (1.20-3.40) K/uL [place] # (Auto) (0.11-0.59) K/uL Eos # (Auto) (0.00-0.50) K/uL Baso # (Auto) (0.00-0.20) K/uL Immature Gran # (Auto) (0.01-0.20) K/uL POC pH 7.35 (7.35-7.45) POC pCO2 52 H (35-46) mmHg POC pO2 93 (80-95) mmHg POC HCO3 29 H (19-24) clovis/L POC Base Excess 3.0 H (-9-1.8) clovis/L POC ABG O2 Sat 97.0 H (90-95) % VBG pH (7.36-7.41) VBG pCO2 (38-50) mmHg VBG pO2 mmHg VBG HCO3 mmol/L VBG O2 Saturation % VBG Base Excess mEq/L POC Sodium 126 L (135-144) mmol/L Sodium (136-145) mmol/L POC Potassium 4.9 (3.3-5.0) mmol/L Potassium (3.5-5.1) mmol/L POC Chloride (101-112) mmol/L Chloride (98-107) mmol/L Carbon Dioxide (21-32) mmol/L POC Total CO2 30 (24-31) mmol/L Anion Gap (3-11) POC Anion Gap (16-25) mmol/L POC BUN (7-18) mg/dl BUN (6-23) mg/dl Creatinine (0.6-1.4) mg/dl POC Creatinine (0.6-1.3) mg/dl Est Cr Clr Drug Dosing ml/min eGFR BUN/Creatinine Ratio (10-20) Glucose (70-99(Fasting)) mg/dl POC Glucose (other) (70-99) mg/dl Calcium (8.6-10.3) mg/dl POC Ioniz Calcium Jeny (1.12-1.32) mmol/l Total Bilirubin (0.2-1.0) mg/dl AST (13-39) U/L ALT (7-52) U/L Alkaline Phosphatase (34-104) U/L Troponin I High Sens (0-20) pg/ml Total Protein (6.0-8.3) gm/dl Albumin (3.4-5.0) gm/dl Globulin (2.5-4.0) gm/dl Albumin/Globulin Ratio (0.9-2) Lipase (11-82) U/L Procalcitonin (0-0.5) ng/ml Adenovirus (PCR) (NotDetected) B. pertussis DNA (PCR) (NotDetected) B.parapertussis DNA PCR (NotDetected) C. pneumoniae DNA (PCR) (NotDetected) Coronavirus OC43 (PCR) (NotDetected) Coronavirus HKU1 (PCR) (NotDetected) Coronavirus 229E (PCR) (NotDetected) SARS-CoV-2 (PCR) (NotDetected) Coronavirus NL63 (PCR) (NotDetected) Human Metapneumovir PCR (NotDetected) Influenza Type A (PCR) (NotDetected) Influenza Type B (PCR) (NotDetected) M. pneumoniae (PCR) (NotDetected) Parainfluenza 1 (PCR) (NotDetected) Parainfluenza 2 (PCR) (NotDetected) Parainfluenza 3 (PCR) (NotDetected) Parainfluenza 4 (PCR) (NotDetected) RSV (PCR) (NotDetected) Entero/Rhino (PCR) (NotDetected) Administered Medications Discontinued Medications Albuterol (Albut/Ipratrop 3mg/0.5mg Neb 3 Ml Vial) 6 ml NEB NOW STA; Protocol Stop: 10/23/24 14:05 Last Admin: 10/23/24 14:19 Dose: 6 ml Documented By: ABIMAEL Albuterol (Albut/Ipratrop 3mg/0.5mg Neb 3 Ml Vial) 3 ml NEB NOW STA; Protocol Stop: 10/23/24 16:15 Last Admin: 10/23/24 16:27 Dose: 3 ml Documented By: DMITRY Hydrocortisone Sodium Succinate (Hydrocortisone Sod Succinate 100 Mg/2 Ml Vial) 100 mg IV NOW STA Stop: 10/23/24 17:09 Last Admin: 10/23/24 17:34 Dose: 100 mg Documented By: HAYDE Cefepime HCl (Maxipime 2000mg) 2,000 mg in 20 mls @ 5 mls/min IV NOW STA; Protocol Stop: 10/23/24 14:38 Last Admin: 10/23/24 14:41 Dose: 5 mls/min Documented By: ABIMAEL Azithromycin 500 mg/ Sodium (Chloride) 255 mls @ 127.5 mls/hr IV NOW ONE Stop: 10/23/24 19:14 Last Admin: 10/23/24 18:06 Dose: 127.5 mls/hr Documented By: HAYDE Methylprednisolone (Methylprednisolone 125 Mg/2 Ml Vial) 40 mg IV NOW STA Stop: 10/23/24 14:05 Last Admin: 10/23/24 14:19 Dose: 40 mg Documented By: ABIMAEL Imaging Data Radiologist's Impression: Chest X-Ray 10/23/24 13:57 XR chest 1V portable CLINICAL HISTORY: Chest pain, nonspecific COMPARISON STUDY: Chest CT March 30, 2024. Chest CT July 15, 2024. Chest radiograph July 06, 2024. FINDINGS: There is no pneumothorax or pleural effusion. Cardiomegaly is again noted. Pulmonary vascular congestion is similar to prior exam. Right lower lobe opacity is noted. There is also left basilar opacity. IMPRESSION: 1. Cardiomegaly with pulmonary vascular congestion, similar to prior exam. 2. Bibasilar opacities which could reflect pneumonia or atelectasis. Radiographic follow-up to ensure resolution is recommended. ACT 112: Negative or not required by law. Electronically signed by: Aditya Foley M.D. 10/23/2024 2:16 PM KUB X-Ray 10/23/24 16:15 EXAMINATION: X-ray KUB/abdomen 1 view CLINICAL HISTORY: Pain PRIORS: None TECHNIQUE: Single frontal view abdomen FINDINGS: Large body habitus diminishes image quality. Surgical hardware present at L5-S1. Overlying bowel gas and stool obscures fine bone detail. A large amount of formed stool present throughout the colon. Mild gaseous distention of the distal transverse, descending and sigmoid colon present without dilatation. No dilated loops of bowel. No air-fluid levels. No acute osseous abnormality. IMPRESSION: Large amount of formed stool throughout the colon with nondilated, nonobstructed bowel gas pattern Electronically signed by Sanaz Santos 10-23-2024 4:56 PM Discharge Plan Visit Data Chief Complaint: Respiratory Distress Stated Complaint: RESP DIFF. ED Provider: James Estrada Discharge Problem: Acute hypercapnic respiratory failure, Shortness of breath Patient Disposition: Admitted As Inpatient Discharge Instructions Interventions: ED Discharge Assessment Last Done: 10/23/24 18:40
--- NOTE | 2024-10-23 14:18 | XRay Report ---
XR chest 1V portable CLINICAL HISTORY: Chest pain, nonspecific COMPARISON STUDY: Chest CT March 30, 2024. Chest CT July 15, 2024. Chest radiograph July 06, 2024. FINDINGS: There is no pneumothorax or pleural effusion. Cardiomegaly is again noted. Pulmonary vascul ar congestion is similar to prior exam. Right lower lobe opacity is noted. There is also left basilar opacity. IMPRESSION: 1. Cardiomegaly with pulmonary vascular congestion, similar to prior exam. 2. Bibasilar opacities which could reflect pneumonia or atelectasis. Radiographic follow-up to ensure resolution is recommended. ACT 112: Negative or not required by law. Electronically signed by: Aditya Foley M.D. 10/23/2024 2:16 PM
[2024-10-23] MEDS: ALBUT/IPRATROP 3MG/0.5MG NEB 3 ML VIAL NEB STA ×2 (14:19→16:27)
[2024-10-23] MEDS: methylPREDNISolone 125 MG/2 ML VIAL IV STA (14:19)
[2024-10-23 14:20] LABS: HCO3 VBG 32 mmol/L; Oxygen Saturation VBG < 60.0 %; PCO2 VBG 65 mmHg (38-50); PO2 VBG 31 mmHg
[2024-10-23 14:25] LABS: iSTAT Creatinine 1.5 mg/dl (0.6-1.3); iSTAT Hemoglobin 12.2 g/dl (14.0-18.0); iSTAT Ionized Calcium 1.18 mmol/l (1.12-1.32); iSTAT Potassium 5.1 mmol/L (3.3-5.0)
[2024-10-23 14:33] LABS: Basophils # (auto) 0.04 K/uL (0.00-0.20); Basophils % (auto) 0.2 %; Eosinophils # (auto) 0.03 K/uL (0.00-0.50); Eosinophils % (auto) 0.2 %; Hematocrit (blood only) 35.7 % (42.0-52.0); Hemoglobin 11.6 g/dl (14.0-18.0); Immature Granulocytes # (auto) 0.21 K/uL (0.01-0.20); Immature Granulocytes % (auto) 1.3 %; Lymphocytes # (auto) 1.18 K/uL (1.20-3.40); Lymphocytes % (auto) 7.2 %; Mean Corpuscular Hgb Conc 32.5 g/dL (32.0-36.0); Mean Corpuscular Volume 92.2 fL (80.0-100.0); Mean Platelet Volume 8.7 fL (9.4-12.4); Monocytes # (auto) 0.75 K/uL (0.11-0.59); Monocytes % (auto) 4.6 %; Neutrophils # (auto) 14.17 K/uL (1.40-6.50); Neutrophils % (auto) 86.5 %; Platelet Count 179 K/uL (130-400); RDW Coefficient of Variation 15.2 % (11.5-14.5); RDW Standard Deviation 50.6 fL (36.4-46.3); Red Blood Count 3.87 M/uL (4.70-6.10); White Blood Count 16.38 K/ul (4.8-10.8)
[2024-10-23] MEDS: CEFEPIME 2000MG 2,000 MG/20 ML SYR IV STA (14:41)
[2024-10-23 14:50] LABS: Albumin Level 4.1 gm/dl (3.4-5.0); BUN Creatinine Ratio 10.9 (10-20); Bilirubin,Total 0.4 mg/dl (0.2-1.0); Calcium 9.1 mg/dl (8.6-10.3); Creatinine Clr Calc Pharmacy 82.4 ml/min; Potassium 5.1 mmol/L (3.5-5.1); Total Protein 6.1 gm/dl (6.0-8.3)
[2024-10-23 14:55] LABS: Troponin I High Sensitivity 4.9 pg/ml (0-20)
[2024-10-23 15:05] LABS: Adenovirus PCR Not Detected (NotDetected); Bordetella parapertussis PCR Not Detected (NotDetected); Bordetella pertussis PCR Not Detected (NotDetected); Chlamydia pneumoniae PCR Not Detected (NotDetected); Coronavirus 229E PCR Not Detected (NotDetected); Coronavirus CoV-2 (COVID19)PCR Not Detected (NotDetected); Coronavirus HKU1 PCR Not Detected (NotDetected); Coronavirus NL63 PCR Not Detected (NotDetected); Coronavirus OC43PCR Not Detected (NotDetected); Human Metapneumovirus PCR Not Detected (NotDetected); Influenza A PCR Not Detected (NotDetected); Influenza B PCR Not Detected (NotDetected); Mycoplasma pneumoniae PCR Not Detected (NotDetected); Parainfluenza Virus 1 PCR Not Detected (NotDetected); Parainfluenza Virus 2 PCR Not Detected (NotDetected); Parainfluenza Virus 3 PCR Not Detected (NotDetected); Parainfluenza Virus 4 PCR Not Detected (NotDetected); Respiratory Syncytial VirusPCR Not Detected (NotDetected); Rhinovirus/Enterovirus PCR Not Detected (NotDetected)
--- NOTE | 2024-10-23 15:41 | History & Physical Report ---
Date of Service October 23, 2024 Assessment & Plan (1) Acute hypercapnic respiratory failure: (2) COPD exacerbation: (3) Pneumonia: (4) DM type 2 (diabetes mellitus, type 2): (5) Chronic adrenal insufficiency: (6) Benign prostatic hyperplasia with urinary obstruction and other lower urinary tract symptoms: (7) Panhypopituitarism: (8) Bipolar disorder: (9) Obstructive sleep apnea: (10) Seizure disorder: Plan Pt is a 54 yo male with a past medical history of COPD on 2L NC baseline, CORINA, ulcerative colitis, migraines, panhypopituitarism with secondary adrenal insufficency, HTN, CKD stage 3, seizure disorder, DMT2 on insulin, chronic low back pain, bipolar disorder, and BPH who presents to the hospital on 10/23 for SOB. #Acute hypercapnic resp failure - suspect most likely COPD exac in the setting of pneumonia, also noncompliant with CPAP recently - last echo 03/2024; EF 55% with preserved systolic function - continue home furosemide 20 mg po - initial VBG pH 7.3, CO2 65, repeat ABG after 2 hours bipap showed improvement pH 7.35 and CO2 51 #Pneumonia - CXR showed bibasilar opacities pneumonia vs atelectasis and pulm vascular congestion, WBC 16 on admission - procal pending - given 1 dose cefepime in the ED, continue cefepime and add azithromycin #COPD exac - for COPD he is on 2L O2 baseline - antibiotics as above - given 40 mg IV methylpred in the ED, will continue IV steroids for COPD exac IV methylpred - duonebs q4h #Abd distention - KUB; large amount of stool noted - recommend escalated bowel prep once resp status improves #Panhypopituitarism #Hypothyroidism - continue home levothyroxine - continue home desmopressin,consider holding if hyponatremia/hyperkalemia not improved on am labs - home dosing of hydrocortisone 20mg qam and 10 mg qpm, held in setting of IV steroids, was taking double doses for stress dosing the days leading up to admission - given 100 mg hydrocortisone one time on admission, then 50 mg IV q6h scheduled - suspect hyponatremia/hyperkalemia is related to adrenal crisis, to recheck on am labs #CORINA - has not been using his CPAP for "awhile", has appt tomorrow to get a new one - on bipap here currently - CPAP HS #DMT2 on insulin - will hold home metformin and semaglutide - will do SSI and nightly glargine #HTN - continue home metoprolol succinate #Bipolar - continue home lithium - continue home aripiprazole #Seizure disorder - continue home levetiracetam - continue home lacosamide - continue prn ativan 0.5 mg for seizures #Insomnia #Depression/anxiety - continue home duloxetine 30 mg HS and 60 mg qam - continue home mirtazapine held on admission, consider restarting tomorrow - continue home trazodone held on admission, consider restarting tomorrow #BPH - continue home dutasteride or formulary equivalent #Chronic back pain - on hydrocodone-acetaminophen 7.5/325 q6h prn at home - tylenol IV prn for pain, holding opioids in the setting of resp failure for now VTE ppx: lovenox IVF: none Antibiotics: cefepime and azithromycin Diet: NPO as he is on Bipap, pending improved resp status History of Present Illness Chief Complaint: Shortness of breath Primary Care Provider: Larry Amaral MD Pt is a 54 yo male with a past medical history of COPD on 2L NC baseline, CORINA, ulcerative colitis, panhypopituitarism with secondary adrenal insufficency, HTN, CKD stage 3, seizure disorder, DMT2 on insulin, chronic low back pain, bipolar disorder, and BPH who presents to the hospital on 10/23 for SOB. Pt seen at bedside, he is on bipap which somewhat limits conversation clarity. He states that a few days ago he started to feel fatigued with congestion, cough, and chills. He states he has not taken his temperature at home. He states when he started to feel ill he started steroid stress dosing (usually takes 20 mg hydrocortisone qam and 10 mg qpm, doubled both doses for stress dosing). He states that he continued to feel progressively worse. He had some "runny" nonbloody stools a few days ago but has not had any BM in days. Notes abdominal distention but no abdominal pain, just states he does not feel hungry at all and has had very poor po intake the last few days. He states that he has not been using his CPAP for "awhile now" since his device is downstairs and he wants to sleep upstairs in the house. He states he had an appt tomorrow for a new machine. Allergies Allergy/AdvReac Type Severity Reaction Status Date / Time clindamycin Allergy Intermediate SWELLING Verified 10/05/24 14:40 Iodinated Contrast Media Allergy Intermediate face/eye Verified 10/05/24 14:40 swelling Quinolones Allergy Intermediate HIVES Verified 10/05/24 14:40 Home Medications Medication Instructions Recorded Confirmed Type lithium carbonate 300 mg tablet 300 mg PO AMHS 06/04/22 10/05/24 History celecoxib 200 mg capsule 200 mg PO DAILY PRN Pain 06/23/22 10/05/24 History duloxetine 30 mg capsule,delayed 30 mg PO HS 06/23/22 10/05/24 History release mirtazapine 30 mg tablet (Remeron) 30 mg PO HS 06/23/22 10/05/24 History blood sugar diagnostic (OneTouch 08/06/22 10/05/24 History Verio test strips) duloxetine 60 mg capsule,delayed 60 mg PO QAM 11/09/22 10/05/24 History release prazosin 5 mg capsule (Minipress) 5 mg PO HS 11/09/22 10/05/24 History fluticasone propionate 50 1 spray intranasal HS PRN allergy 03/16/23 10/05/24 Rx mcg/actuation nasal symptoms #16 grams spray,suspension (Flonase Allergy Relief) FreeStyle Rosalie 2 Brandon (flash #1 ea 05/13/23 10/05/24 Rx glucose scanning reader) rimegepant 75 mg disintegrating 75 mg PO DAILY PRN Migraine 09/14/23 10/05/24 Rx tablet (Nurtec ODT) Headache #8 tabs lorazepam 0.5 mg tablet 0.5 mg PO DAILY PRN Seizure 09/19/23 10/05/24 History Activity blood sugar diagnostic (OneTouch #150 ea 11/22/23 10/05/24 Rx Verio test strips) blood-glucose meter (OneTouch #1 ea 11/22/23 10/05/24 Rx Verio Reflect Meter) insulin syringe-needle U-100 1 mL #300 ea 11/22/23 10/05/24 Rx 30 gauge x 1/2" (BD Insulin Syringe Ultra-Fine) lancets 33 gauge (OneTouch Delica #150 ea 11/22/23 10/05/24 Rx Plus Lancet) ferrous sulfate 325 mg (65 mg 325 mg PO QAM 02/20/24 10/05/24 History iron) tablet albuterol sulfate 90 mcg/actuation 2 inh inhalation Q6H PRN shortness 02/24/24 10/05/24 Rx aerosol inhaler (Ventolin HFA) of breath or wheezing #6.7 grams metformin 1,000 mg tablet 1,000 mg PO BID #180 tabs 03/03/24 10/05/24 Rx somatropin 5 mg/1.5 mL (3.3 mg/mL) 0.3 mg (0.09 mL) subcut QPM #2 03/13/2409/21 Rx subcutaneous pen injector syringes (Norditropin FlexPro) aspirin 81 mg tablet,delayed 81 mg PO QAM 04/06/24 10/05/24 History release dutasteride 0.5 mg capsule 0.5 mg PO QAM 04/06/24 10/05/24 History glucagon 3 mg/actuation nasal 3 mg intranasal ONCE PRN Severe 04/06/24 10/05/24 History spray (Baqsimi) Hypoglycemia oxybutynin chloride 5 mg tablet 5 mg PO HS PRN bladder spasms 04/06/24 10/05/24 History FreeStyle Rosalie 2 Sensor (flash #6 ea 05/02/24 10/05/24 Rx glucose sensor) testosterone 2 pump topical PM #75 grams 05/04/24 10/05/24 Rx aripiprazole 5 mg tablet 5 mg PO DAILY 05/29/24 10/05/24 History clopidogrel 75 mg tablet 75 mg PO QPM #30 tabs 05/31/24 10/05/24 Rx nystatin 100,000 unit/gram topical 1 applic topical BID #30 grams 06/19/24 1 12/05/23 Rx cream insulin glargine 100 unit/mL (3 12 unit subcut HS 07/19/24 10/05/24 History mL) subcutaneous pen (Lantus Solostar U-100 Insulin) ipratropium 0.5 mg-albuterol 3 mg 3 ml inhalation QID PRN wheezing 07/31/24 10/05/24 Rx (2.5 mg base)/3 mL nebulization #90 mL soln nebulizers (Compact Compressor #1 ea 07/31/24 10/05/24 Rx Nebulizer) metoprolol succinate 25 mg 25 mg PO DAILY #30 tabs 08/29/24 10/05/24 Rx tablet,extended release 24 hr Botox 200 unit injection See Rx Instructions IM .COMPLEX #1 09/18/24 10/05/24 Rx (onabotulinumtoxinA) ea cholecalciferol (vitamin D3) 50 50 mcg PO QPM #90 caps 09/19/24 10/05/24 Rx mcg (2,000 unit) capsule lacosamide 150 mg tablet 150 mg PO BID #60 tabs 09/19/24 10/05/24 Rx rosuvastatin 20 mg tablet 20 mg PO QAM #90 tabs 09/19/24 10/05/24 Rx pantoprazole 40 mg tablet,delayed 40 mg PO BID #60 tabs 09/21/24 10/05/24 Rx release furosemide 20 mg tablet 20 mg PO DAILY 10/03/24 10/05/24 History hydrocodone 7.5 mg-acetaminophen 1 tab PO Q6H PRN 10/03/24 10/05/24 History 325 mg tablet levetiracetam 1,000 mg tablet 1,000 mg PO Q12H 10/03/24 10/05/24 History potassium chloride 20 mEq 20 meq PO DAILY 10/03/24 10/05/24 History tablet,extended release semaglutide (weight loss) 0.25 0.25 mg subcut Q7D 10/03/24 10/05/24 History mg/0.5 mL subcutaneous pen injector (Gerardo) trazodone 100 mg tablet 100 mg PO .qhs 10/03/24 10/05/24 History divalproex 250 mg tablet,delayed 1,000 mg PO DAILY 10/05/24 10/05/24 History release levothyroxine 200 mcg tablet 200 mcg PO QAM #30 tabs 10/22/24 Rx pen needle, diabetic 32 gauge x #100 ea 10/23/24 Rx 32" (BD Vy 2nd Gen Pen Needle) desmopressin 0.1 mg tablet (DDAVP) 0.4 mg (4 x 0.1 mg) PO BID #240 10/24/24 Rx tabs hydrocortisone 10 mg tablet 10 mg PO UD #135 tabs 10/24/24 Rx Past Med/Surg History Problem List (Updated 10/24/24 @ 14:03 by Kam Miller MD) Acute on chronic respiratory failure with hypoxia and hypercapnia Shortness of breath (Acute) Acute hypercapnic respiratory failure (Acute) COPD exacerbation Acute hypercapnic respiratory failure Seizure disorder Chronic respiratory failure with hypoxia Obesity Abnormal PFTs (pulmonary function tests) Abnormal chest CT Dyspnea (Acute) COPD (chronic obstructive pulmonary disease) CKD (chronic kidney disease), stage III Globus sensation Demyelinating disease Vision loss, bilateral Shortness of breath on exertion Peripheral edema Hypertension (Acute) Secondary adrenal insufficiency Pituitary hypogonadism Follows with endocrinology- Pituitary hypothyroidism Follows with endocrinology- Non-occlusive coronary artery disease Lumbar stenosis with neurogenic claudication Esophageal dysphagia Anxiety (Chronic) Mitral regurgitation Essential tremor Paresthesia Idiopathic polyneuropathy Lumbosacral radiculopathy Panhypopituitarism (Acute) Arachnoid cyst of posterior cranial fossa Obstructive sleep apnea Mixed hyperlipidemia Ulcerative colitis Anemia (Acute) Bipolar disorder (10/11/22) Chronic migraine without aura or status migrainosus Uncontrolled type 2 diabetes mellitus with hyperglycemia Suspect low glycation index meaning his A1c is typically about 2 points lower than what his average glucose would suggest. Chronic low back pain Current use of proton pump inhibitor Severe obesity (BMI 35.0-35.9 with comorbidity) 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 Growth hormone deficiency Depression BPH with obstruction/lower urinary tract symptoms Medical History Toxic encephalopathy Chest pain Acute dyspnea Acute CHF Hypoglycemia Syncope and collapse Internal hemorrhoids Atrial fibrillation (02/15/24) Recurrent seizures Pituitary diabetes insipidus Spondylolysis, lumbar region Right lumbar radiculopathy HTN (hypertension) Bipolar disorder Adrenal insufficiency Pituitary adenoma Diabetes Bleeding (02/16/24) Acute blood loss anemia (02/19/24) Hyperactive gag reflex BRCA gene positive Family history of BRCA gene mutation PTSD (post-traumatic stress disorder) Epidural lipomatosis Chronic left sacroiliac pain Benzodiazepine overdose Presence of cardiac device Hx of fracture of foot Fracture of fibula, right, closed Cerebral concussion Orthostatic hypotension Pseudoseizures Sensorineural hearing loss of both ears Rectal bleeding History of COVID-19 Mitral valve regurgitation Vertigo Panhypopituitarism Lower extremity edema Elevated LFTs Bilateral hand pain Pituitary neoplasm Kidney stones Prostate mass Bladder mass Obstructive sleep apnea of adult Surgical History S/P TURP (status post transurethral resection of prostate) History of lumbar fusion History of cardiac cath S/P epidural steroid injection History of lithotripsy Status post right foot surgery History of bladder surgery History of prostate surgery History of colonoscopy History of esophagogastroduodenoscopy (EGD) History of tooth extraction History of wisdom tooth extraction History of brain surgery Family History Grandmother (Paternal) Family history of diabetes mellitus Aunt Family history of diabetes mellitus Uncle Family history of diabetes mellitus Father Prostate cancer Heart disease Mother Cardiac disorder Grandmother (Maternal) Myocardial infarction Other Asthma Cancer Hypertension No family history of adverse response to anesthesia No family history of bleeding disorder Stroke Denies family history of Ovarian cancer Breast cancer Colorectal cancer Social History Smoking Status: Former smoker Tobacco Type: Smokeless Tobacco (Dip or Chew) Second Hand Exposure: No; Do You Dip or Chew Tobacco: No; Tobacco Cessation Education Requested by Patient: No Hx Alcohol Use: Yes Alcohol type: beer Alcohol Intake Frequency: Never Hx Substance Use: No Preferred Language: Ukrainian Communication Ability: Effective Communication Ability Comment: Unable to obtain due to patient condition. Visual Impairment: Limited Hearing Ability: Normal Assistant Business Manager Required: No Beliefs That Will Affect Care: None marital status: Single Current Living Situation: Spouse Current Living Situation Comment: lives w/ and daughter current occupational status: disabled How many Children do You have: 3 Other Information That Helps Us Care for You: No Feels Safe at Home: Yes Safety Concerns: Feels Safe At This Time Childhood Exposure to Second-Hand Smoke: Yes (parents smoked) Diet: regular Diet Comment: going to be starting low carb/low calorie diet. caffeine: No (1/2 20 oz bottle of mountain dew. ) during the past year weight has: increased > 10 lbs Physical Activity Frequency: Daily Physical Activity Frequency Comment: walking, 1.5 miles daily. Seatbelt Use: always Gender Identity: Male Assistive Devices: Cane and Oxygen - Continuous Review of Systems Review of Systems: Per HPI. Physical Exam Physical Exam: General:Awake, alert but very fatigued appearing HEENT: Normocephalic, moist oral mucosa, bipap in place Cardio: Regular rate and rhythm, no murmur, Resp:Poor air movement diffusely GI: Nontender but distended, bowel sounds active Skin: Warm, pink, dry, Results & Data Results & Data Vital Signs (Past 12 Hours) Vital Signs Temp Pulse Pulse Resp BP BP Pulse Ox 10/23/24 15:25 69 22 122/83 100 10/23/24 15:01 71 17 99 10/23/24 14:02 73 98 10/23/24 14:02 73 18 97 10/23/24 14:02 90 10/23/24 14:00 76 10/23/24 13:54 36.6 C 77 18 135/84 95 O2 Del Method O2 Flow Rate FiO2 10/23/24 15:25 BiPAP 10/23/24 15:01 40 10/23/24 14:02 Nasal Cannula 4 10/23/24 14:02 Nasal Cannula 4 10/23/24 14:02 Room Air, Nasal Cannula 0 10/23/24 14:00 10/23/24 13:54 Nasal Cannula 4 Supervising Physician Co-Signing Physician Notes I personally saw and examined the patient. I independently reviewed the labs, EKG, imaging, problem list, medication list, past medical history and family history. I verified all tinoco points and agree with resident physician Dr Berta Shannon DO with the following exceptions and/or additions: 54 year old male with complex medical history as noted above presents to the ER with shortness of breath and lethargy much worse over the last 2 days O/E HS RRR, no murmurs, Chest poor air entry bilaterally with end expiratory wheezing, Abdo SNT, 1+ pedal edema b/l equal A/P Acute hypercapnic respiratory failure - BiPAP, improving with repeat ABG, Continue HS, suspect secondary to COPD, PNA, increased dose of opiates, holding sedating medications, TSH/free T4 levels pending PNA - possible diagnosis vs hypoinflated lungs, procalcitonin added COPD exacerbation - Solu-medrol 40 mg IV daily, Duonebs Possible adrenal crisis - hydrocortisone 100mg IV followed by 50mg IV q6h Hyponatremia - monitor closely while on steroids and desmopressin as likely to decrease and may need Resident Activity Tracking Resident Involvement: Resident Care Provided Care Provided: Adult Hospital Medicine
--- NOTE | 2024-10-23 16:57 | XRay Report ---
EXAMINATION: X-ray KUB/abdomen 1 view CLINICAL HISTORY: Pain PRIORS: None TECHNIQUE: Single frontal view abdomen FINDINGS: Large body habitus diminishes image quality. Surgical hardware present at L5-S1. Overlying bowel gas and stool obscures fine bone detail. A large amount of formed stool present throughout the colon. Mild gaseous distention of the distal transverse, descending and sigmoid colon present without dilatation. No dilated loops of bowel. No air-fluid levels. No acute osseous abnormality. IMPRESSION: Large amount of formed stool throughout the colon with nondilated, nonobstructed bowel gas pattern Electronically signed by Sanaz Santos 10-23-2024 4:56 PM
[2024-10-23 17:11] LABS: iSTAT Arterial Blood Gas HCO3 29 meg/L (19-24); iSTAT Arterial Blood Gas pCO2 52 mmHg (35-46); iSTAT Arterial Blood Gas pH 7.35 (7.35-7.45); iSTAT Arterial Blood Gas pO2 93 mmHg (80-95); iSTAT Carbon Dioxide 30 mmol/L (24-31); iSTAT Hematocrit 40 % (42-52); iSTAT Hemoglobin 13.6 g/dl (14.0-18.0); iSTAT Potassium 4.9 mmol/L (3.3-5.0); iSTAT Sodium 126 mmol/L (135-144)
[2024-10-23] MEDS ORDERED: AZITHROMYCIN 500 MG VIAL IV ONE (17:11)
[2024-10-23] MEDS: HYDROCORTISONE SOD SUCCINATE 100 MG/2 ML VIAL IV STA (17:34)
[2024-10-23] MEDS: AZITHROMYCIN 500 MG in SODIUM CHLORIDE 0.9% 250 ML IV ONE (18:06)
--- NOTE | 2024-10-23 18:42 | XRay Report ---
EXAMINATION: X-ray right knee 1 or 2 view routine CLINICAL HISTORY: Right knee pain PRIORS: None TECHNIQUE: Frontal and lateral view knee. FINDINGS: Bone stock appears preserved. Moderate prepatellar soft tissue swelling or fluid present with small suprapatella joint effusion. No acute fracture or dislocation. Patella is not high riding. A fabella is noted, variant anatomy. Mild medial compartment joint space narrowing. IMPRESSION: Moderate prepatellar soft tissue swelling or bursitis. ACT 112: Positive. There are findings on this examination that require communication between the performing entity and the patient following Patient Test Result Information Act ([place] ACT 112) guidelines. Electronically signed by Sanaz Santos 10-23-2024 6:41 PM
[2024-10-23] MEDS ORDERED: FLUTICASONE PROPIONATE NA SPR 16 GM BTL PRN (19:09)
[2024-10-23] MEDS ORDERED: CARBOHYDRATES FOR HYPOGLYCEMIA PO PRN (19:09)
[2024-10-23] MEDS ORDERED: GLUCAGON FOR INJ 1 MG VIAL SQ PRN (19:09)
[2024-10-23] MEDS ORDERED: LORazepam 0.5 MG TAB PO PRN (19:09)
[2024-10-23] MEDS ORDERED: ACETAMINOPHEN 1,000 MG/100 ML VIAL IV PRN (19:09)
[2024-10-23] MEDS ORDERED: oxyBUTYnin chloride 5 MG TAB PO PRN (19:09)
[2024-10-23] MEDS ORDERED: DEXTROSE 50% 50 ML SYRINGE IV PRN (19:09)
[2024-10-23] MEDS ORDERED: GLUCOSE 10 TAB/TUBE PO PRN (19:09)
[2024-10-23] MEDS ORDERED: POLYETHYLENE (MIRALAX) 17 GM PACK PO PRN (19:09)
[2024-10-23] MEDS ORDERED: GLUCOSE 40% GEL 15 GM TUBE PO PRN (19:09)
[2024-10-23] MEDS: ALBUT/IPRATROP 3MG/0.5MG NEB 3 ML VIAL ONE (19:38)
[2024-10-23] MEDS: ALBUT/IPRATROP 3MG/0.5MG NEB 3 ML VIAL NEB SCH (20:02)
[2024-10-23] MEDS: ENOXAPARIN INJ 40 MG/0.4 ML SYR SQ SCH (21:14)
[2024-10-23] MEDS: levETIRAcetam 500 MG TAB PO SCH (21:16)
[2024-10-23] MEDS: DULoxetine HCL 30 MG CAP PO SCH (21:19)
[2024-10-23] MEDS: LITHIUM CARBONATE 300 MG TAB PO SCH (21:21)
[2024-10-23] MEDS: PANTOprazole 40 MG TAB PO SCH (21:22)
[2024-10-23] MEDS: CEFEPIME 2000MG 2,000 MG/20 ML SYR IV SCH (21:26)
[2024-10-23] MEDS: LANTUS PER UNIT CHARGE SQ SCH (21:26)
[2024-10-23] MEDS: INSULIN ASPART PER UNIT CHARGE SC SCH (21:27)
[2024-10-23 21:59] LABS: Calcium 8.8 mg/dl (8.6-10.3); Potassium 5.4 mmol/L (3.5-5.1)
[2024-10-23] MEDS: DESMOPRESSIN ACETATE 0.1 MG TAB PO SCH (22:08)
[2024-10-23 22:18] LABS: BUN Creatinine Ratio 16.5 (10-20); Creatinine Clr Calc Pharmacy 110.5 ml/min
[2024-10-23] MEDS: CLOPIDOGREL BISULFATE 75 MG TAB PO SCH (23:46)
[2024-10-23] MEDS: LACOSAMIDE 50 MG TABLET PO SCH (23:46)
[2024-10-23] MEDS: PRAZOSIN HCL 1 MG CAP PO SCH (23:47)
[2024-10-23] MEDS: SODIUM ZIRCONIUM CYCLOSILICATE 10 GM PACKET PO SCH (23:47)
[2024-10-23] MEDS: HYDROCORTISONE SOD 50 MG in SYRINGE 0 ML IV SCH (23:48)
[2024-10-24] MEDS ORDERED: HYDROCORTISONE SOD SUCCINATE 100 MG/2 ML VIAL IV SCH (00:05)
[2024-10-24] MEDS ORDERED: MELATONIN 3 MG TAB PO PRN (01:19)
[2024-10-24 01:26] LABS: Thyroid Stimulating Hormone 1.107 uIu/ml (0.300-4.500)
[2024-10-24 01:39] LABS: T4 Free Thyroxine < 0.25 ng/dl (0.61-1.60)
[2024-10-24] MEDS: LEVOTHYROXINE SODIUM 200 MCG TABLET PO SCH (06:02)
[2024-10-24 06:10] LABS: Base Excess VBG 4.8 mEq/L; HCO3 VBG 32 mmol/L; Oxygen Saturation VBG < 60.0 %; PCO2 VBG 60 mmHg (38-50); PO2 VBG 29 mmHg; pH VBG 7.34 (7.36-7.41)
[2024-10-24 06:19] LABS: Basophils # (auto) 0.03 K/uL (0.00-0.20); Basophils % (auto) 0.2 %; Hematocrit (blood only) 37.4 % (42.0-52.0); Hemoglobin 12.5 g/dl (14.0-18.0); Immature Granulocytes # (auto) 0.44 K/uL (0.01-0.20); Immature Granulocytes % (auto) 2.4 %; Lymphocytes % (auto) 9.1 %; Mean Corpuscular Hemoglobin 30.3 pg (25.0-34.0); Mean Corpuscular Hgb Conc 33.4 g/dL (32.0-36.0); Mean Corpuscular Volume 90.6 fL (80.0-100.0); Mean Platelet Volume 8.9 fL (9.4-12.4); Monocytes # (auto) 0.64 K/uL (0.11-0.59); Monocytes % (auto) 3.4 %; Neutrophils % (auto) 84.9 %; Platelet Count 196 K/uL (130-400); RDW Standard Deviation 49.3 fL (36.4-46.3); Red Blood Count 4.13 M/uL (4.70-6.10); White Blood Count 18.71 K/ul (4.8-10.8)
[2024-10-24 06:34] LABS: BUN Creatinine Ratio 12.7 (10-20); Calcium 8.9 mg/dl (8.6-10.3); Creatinine Clr Calc Pharmacy 75.8 ml/min; Magnesium 1.5 mg/dl (1.7-2.4); Phosphorus 3.3 mg/dl (2.5-4.9); Potassium 5.2 mmol/L (3.5-5.1)
[2024-10-24 07:13] LABS: Estimated Average Glucose 108 mg/dl; Hemoglobin A1C 5.4 % (4.5-5.6)
[2024-10-24] MEDS: FUROSEMIDE 20 MG TAB PO SCH (08:53)
[2024-10-24] MEDS: DIVALPROEX DELAY RELEASE 500 MG TAB PO SCH (08:53)
[2024-10-24] MEDS: ARIPiprazole 5 MG TAB PO SCH (08:53)
[2024-10-24] MEDS: AZITHROMYCIN 250 MG TAB PO SCH (08:53)
[2024-10-24] MEDS: DESMOPRESSIN ACETATE 0.1 MG TAB PO SCH (08:54)
[2024-10-24] MEDS: FINASTERIDE 5 MG TAB PO SCH (08:54)
[2024-10-24] MEDS: ROSUVASTATIN CALCIUM 20 MG TAB PO SCH (08:55)
[2024-10-24] MEDS ORDERED: methylPREDNISolone 125 MG/2 ML VIAL IV SCH (09:00)
[2024-10-24] MEDS ORDERED: methylPREDNISolone 40 MG in SYRINGE 0 ML IV SCH (09:00)
[2024-10-24] MEDS ORDERED: PHARMACY GLYCEMIC MGMT CONSULT PRN (09:17)
--- NOTE | 2024-10-24 09:30 | Electrocardiogram Report ---
Test Reason : Blood Pressure : */* mmHG Vent. Rate : 74 BPM Atrial Rate : 74 BPM P-R Int : 168 ms QRS Dur : 86 ms QT Int : 386 ms P-R-T Axes : 70 13 63 degrees QTcB Int : 428 ms Normal sinus rhythm Normal ECG When compared with ECG of 18-Sep-2024 15:28, No significant change was found Confirmed by Larry Phillips ([id number]) on 10/24/2024 9:30:18 AM Referred By: Confirmed By: Larry Phillips
--- NOTE | 2024-10-24 09:37 | Hospitalist Progress Note ---
Date of Service October 24, 2024 Assessment & Plan (1) Acute on chronic respiratory failure with hypoxia and hypercapnia: (2) Obesity: (3) Seizure disorder: (4) COPD (chronic obstructive pulmonary disease): (5) CKD (chronic kidney disease), stage III: (6) Secondary adrenal insufficiency: (7) Pituitary hypogonadism: (8) Pituitary hypothyroidism: (9) Atrial fibrillation: (10) Bipolar disorder: (11) Obstructive sleep apnea: Plan 54-year-old male with past medical history of COPD/CORINA on 2 L of oxygen via nasal cannula, noncompliant with CPAP, diabetes insipidus, morbid obesity, seizure disorder, bipolar disorder, 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, atrial fibrillation with watchman's, CKD stage III, history of CVA, nonobstructive coronary artery disease, chronic low back pain, BPH who presented to the hospital on 10/23/2024 for shortness of breath #Acute on chronic hypoxic and hypercapnic respiratory failure #CORINA noncompliant with CPAP #COPD #Suspected pneumonia #Suspected acute diastolic congestive heart failure Chest x-ray shows vascular congestion with bibasilar infiltrates which may be atelectasis Unclear if patient has pneumonia since procalcitonin levels are normal Bio fire negative Lasix 40 mg IV x 1 dose now Check 2D echo Check CT of the chest Stop Solu-Medrol IV, continue hydrocortisone: Reduce dose to 50 mg IV 3 times daily Continue antibiotics: Cefepime plus azithromycin for now I/O monitoring Daily weights #History of CVA #Nonobstructive coronary disease #Atrial fibrillation status post watchman's Continue aspirin plus Plavix plus Crestor plus Toprol-XL 25 mg daily Monitor vital signs #Panhypopituitarism #Hypothyroidism #Hyponatremia Outpatient detective homicide squad Dr. Martínez Voss Baseline sodium levels around 135 Continue levothyroxine 200 mcg p.o. daily Reduce desmopressin to 0.2 mg p.o. twice daily given hyponatremia Patient is asymptomatic from hyponatremia, monitor sodium levels Continue IV hydrocortisone: Reduced to 50 mg IV 3 times a day with you review of tapering down to home dose of hydrocortisone 20 mg every morning and 10 mg every afternoon #Type 2 diabetes mellitus A1c is 5.4 Pharmacy managing glycemic control while patient is on steroids #Bipolar disorder Continue lithium and aripiprazole #Seizure disorder Continue Keppra plus lacosamide plus Depakote Seizure precautions #Chronic low back pain Avoid opiates Tylenol as needed Continue duloxetine #Morbid obesity BMI is 42.5 Lifestyle counseling regarding diet, exercise and weight loss provided #Constipation Noted on KUB Senna plus MiraLAX CODE STATUS: Confirmed with patient: Wishes to be DNR but not DNI DVT prophylaxis: Lovenox 40 mg subcutaneous daily Care plan discussed with patient, nursing staff Admission and Anticipated Discharge Date Admission Date: October 23, 2024 Subjective Patient seen and examined H&P reviewed Radiology reviewed Vital signs reviewed Labs reviewed Telemetry reviewed Patient resting comfortably, denies any chest pain, shortness of breath, nausea, vomiting, diarrhea, abdominal pain, fever, chills, cough, hematemesis Patient states he has been feeling short of breath over the past 3 to 4 days with increasing leg edema and felt he was gaining weight. He denies fever or chills. He had a cough without any sputum production and was concerned he may have a pneumonia and hence came to the ED. Patient states he has not had any seizures since he was started on Keppra Patient tells me he is noncompliant with his CPAP at bedtime because he does not like the way the mask fits his nose and also did not like the mask provided in the hospital for CPAP Patient removed his BiPAP overnight as he does not like the mask on his face Social history: Denies tobacco use or alcohol use. Ambulates with a cane. Lives at home with his . Does not drive due to seizure disorder. Physical Exam Physical Exam: General: No acute distress, talking in full sentences Psych: Awake and alert, oriented to place person and time. He was able to tell me that Anders Abraham is president elect HEENT: Anicteric sclera, moist oral mucosa CVS: Regular rate and rhythm Lungs: Bilateral air entry with crackles at the base, no wheezing noted Abdomen: Soft, nontender, no rebound, no guarding Ext: 2+ pitting edema noted, no calf tenderness, back of right knee with skin excoriations, no discharge noted Neuro: No focal motor deficits noted Results & Data Results & Data Vital Signs (Past 12 Hours) Vital Signs Temp Pulse Pulse Resp BP Pulse Ox O2 Del Method 10/24/24 07:31 62 18 97 Nasal Cannula 10/24/24 07:25 36.9 C 62 19 118/72 96 Room Air 12/04/24 04:05 36.7 C 86 18 123/88 92 Room Air 10/24/24 00:08 69 18 96 10/24/24 00:02 73 18 94 Nasal Cannula 10/23/24 23:26 36.9 C 77 16 146/60 H 93 Nasal Cannula 10/23/24 21:56 73 O2 Flow Rate FiO2 10/24/24 07:31 2 10/24/24 07:25 2.0 10/24/24 04:05 10/24/24 00:08 30 10/24/24 00:02 2 10/23/24 23:26 10/23/24 21:56 Laboratory Results Laboratory Results - last 24 hr 10/23/24 10/23/24 10/23/24 14:00 14:05 14:13 WBC 16.38 H RBC 3.87 L Hgb 11.6 L POC Hgb 12.2 L Hct 35.7 L POC Hct 36 L MCV 92.2 MCH 30.0 MCHC 32.5 RDW Std Deviation 50.6 H RDW Coeff of Yanira 15.2 H Plt Count 179 MPV 8.7 L Immature Gran % (Auto) 1.3 Neut % (Auto) 86.5 Lymph % (Auto) 7.2 Mellette % (Auto) 4.6 Eos % (Auto) 0.2 Baso % (Auto) 0.2 Neut # (Auto) 14.17 H Lymph # (Auto) 1.18 L Mellette # (Auto) 0.75 H Eos # (Auto) 0.03 Baso # (Auto) 0.04 Immature Gran # (Auto) 0.21 H POC pH POC pCO2 POC pO2 POC HCO3 POC Base Excess POC ABG O2 Sat VBG pH 7.30 L VBG pCO2 65 H VBG pO2 31 VBG HCO3 32 VBG O2 Saturation < 60.0 VBG Base Excess 4.0 POC Sodium 128 L Sodium 129 L POC Potassium 5.1 H Potassium 5.1 POC Chloride 88 L Chloride 90 L Carbon Dioxide 31 POC Total CO2 27 Anion Gap 8 POC Anion Gap 19.0 POC BUN 15 BUN 15 Creatinine 1.38 POC Creatinine 1.5 H Est Cr Clr Drug Dosing 82.4 eGFR 60.02 BUN/Creatinine Ratio 10.9 Glucose 156 H POC Glucose POC Glucose (other) 158 H Estimat Average Glucose Hemoglobin A1c Calcium 9.1 POC Ioniz Calcium Jeny 1.18 Phosphorus Magnesium Total Bilirubin 0.4 AST 9 L ALT 8 Alkaline Phosphatase 45 Troponin I High Sens 4.9 Total Protein 6.1 Albumin 4.1 Globulin 2.0 L Albumin/Globulin Ratio 2.0 Lipase 19 Procalcitonin < 0.02 TSH 1.107 Free T4 < 0.25 L Free T3 1.85 L Nasal Screen MRSA (PCR) [place] Adenovirus (PCR) Not Detected B. pertussis DNA (PCR) Not Detected B.parapertussis DNA PCR Not Detected C. pneumoniae DNA (PCR) Not Detected Coronavirus OC43 (PCR) Not Detected Coronavirus HKU1 (PCR) Not Detected Coronavirus 229E (PCR) Not Detected SARS-CoV-2 (PCR) Not Detected Coronavirus NL63 (PCR) Not Detected Human Metapneumovir PCR Not Detected Influenza Type A (PCR) Not Detected Influenza Type B (PCR) Not Detected M. pneumoniae (PCR) Not Detected Parainfluenza 1 (PCR) Not Detected Parainfluenza 2 (PCR) Not Detected Parainfluenza 3 (PCR) Not Detected Parainfluenza 4 (PCR) Not Detected RSV (PCR) Not Detected Entero/Rhino (PCR) Not Detected 10/23/24 10/23/24 10/23/24 16:59 17:40 19:40 WBC RBC Hgb POC Hgb 13.6 L Hct POC Hct 40 L MCV MCH MCHC RDW Std Deviation RDW Coeff of Yanira Plt Count MPV Immature Gran % (Auto) Neut % (Auto) Lymph % (Auto) Mellette % (Auto) Eos % (Auto) Baso % (Auto) Neut # (Auto) Lymph # (Auto) Mellette # (Auto) Eos # (Auto) Baso # (Auto) Immature Gran # (Auto) POC pH 7.35 POC pCO2 52 H POC pO2 93 POC HCO3 29 H POC Base Excess 3.0 H POC ABG O2 Sat 97.0 H VBG pH VBG pCO2 VBG pO2 VBG HCO3 VBG O2 Saturation VBG Base Excess POC Sodium 126 L Sodium POC Potassium 4.9 Potassium POC Chloride Chloride Carbon Dioxide POC Total CO2 30 Anion Gap POC Anion Gap POC BUN BUN Creatinine POC Creatinine Est Cr Clr Drug Dosing eGFR BUN/Creatinine Ratio Glucose POC Glucose 231 H POC Glucose (other) Estimat Average Glucose Hemoglobin A1c Calcium POC Ioniz Calcium Jeny Phosphorus Magnesium Total Bilirubin AST ALT Alkaline Phosphatase Troponin I High Sens Total Protein Albumin Globulin Albumin/Globulin Ratio Lipase Procalcitonin TSH Free T4 Free T3 Nasal Screen MRSA (PCR) Negative [place] Adenovirus (PCR) B. pertussis DNA (PCR) B.parapertussis DNA PCR C. pneumoniae DNA (PCR) Coronavirus OC43 (PCR) Coronavirus HKU1 (PCR) Coronavirus 229E (PCR) SARS-CoV-2 (PCR) Coronavirus NL63 (PCR) Human Metapneumovir PCR Influenza Type A (PCR) Influenza Type B (PCR) M. pneumoniae (PCR) Parainfluenza 1 (PCR) Parainfluenza 2 (PCR) Parainfluenza 3 (PCR) Parainfluenza 4 (PCR) RSV (PCR) Entero/Rhino (PCR) 10/23/24 10/24/24 10/24/24 21:20 05:50 07:19 WBC 18.71 H RBC 4.13 L Hgb 12.5 L POC Hgb Hct 37.4 L POC Hct MCV 90.6 MCH 30.3 MCHC 33.4 RDW Std Deviation 49.3 H RDW Coeff of Yanira 15.0 H Plt Count 196 MPV 8.9 L Immature Gran % (Auto) 2.4 Neut % (Auto) 84.9 Lymph % (Auto) 9.1 Mellette % (Auto) 3.4 Eos % (Auto) 0.0 Baso % (Auto) 0.2 Neut # (Auto) 15.90 H Lymph # (Auto) 1.70 Mellette # (Auto) 0.64 H Eos # (Auto) 0.00 Baso # (Auto) 0.03 Immature Gran # (Auto) 0.44 H POC pH POC pCO2 POC pO2 POC HCO3 POC Base Excess POC ABG O2 Sat VBG pH 7.34 L VBG pCO2 60 H VBG pO2 29 VBG HCO3 32 VBG O2 Saturation < 60.0 VBG Base Excess 4.8 POC Sodium Sodium 129 L 127 L POC Potassium Potassium 5.4 H 5.2 H POC Chloride Chloride 92 L 89 L Carbon Dioxide 26 30 POC Total CO2 Anion Gap 11 8 POC Anion Gap POC BUN BUN 17 19 Creatinine 1.03 D 1.50 H D POC Creatinine Est Cr Clr Drug Dosing 110.5 75.8 eGFR 85.25 54.30 BUN/Creatinine Ratio 16.5 12.7 Glucose 145 H 130 H POC Glucose 163 H POC Glucose (other) Estimat Average Glucose 108 Hemoglobin A1c 5.4 Calcium 8.8 8.9 POC Ioniz Calcium Jeny Phosphorus 3.3 Magnesium 1.5 L Total Bilirubin AST ALT Alkaline Phosphatase Troponin I High Sens Total Protein Albumin Globulin Albumin/Globulin Ratio Lipase Procalcitonin TSH Cancelled Free T4 Cancelled Free T3 Nasal Screen MRSA (PCR) [place] < 0.1 L Adenovirus (PCR) B. pertussis DNA (PCR) B.parapertussis DNA PCR C. pneumoniae DNA (PCR) Coronavirus OC43 (PCR) Coronavirus HKU1 (PCR) Coronavirus 229E (PCR) SARS-CoV-2 (PCR) Coronavirus NL63 (PCR) Human Metapneumovir PCR Influenza Type A (PCR) Influenza Type B (PCR) M. pneumoniae (PCR) Parainfluenza 1 (PCR) Parainfluenza 2 (PCR) Parainfluenza 3 (PCR) Parainfluenza 4 (PCR) RSV (PCR) Entero/Rhino (PCR) Diagnostic Findings Chest X-Ray 10/23/24 13:57 XR chest 1V portable CLINICAL HISTORY: Chest pain, nonspecific COMPARISON STUDY: Chest CT March 30, 2024. Chest CT July 15, 2024. Chest radiograph July 06, 2024. FINDINGS: There is no pneumothorax or pleural effusion. Cardiomegaly is again noted. Pulmonary vascular congestion is similar to prior exam. Right lower lobe opacity is noted. There is also left basilar opacity. IMPRESSION: 1. Cardiomegaly with pulmonary vascular congestion, similar to prior exam. 2. Bibasilar opacities which could reflect pneumonia or atelectasis. Radiographic follow-up to ensure resolution is recommended. ACT 112: Negative or not required by law. Electronically signed by: Aditya Foley M.D. 10/23/2024 2:16 PM KUB X-Ray 10/23/24 16:15 EXAMINATION: X-ray KUB/abdomen 1 view CLINICAL HISTORY: Pain PRIORS: None TECHNIQUE: Single frontal view abdomen FINDINGS: Large body habitus diminishes image quality. Surgical hardware present at L5-S1. Overlying bowel gas and stool obscures fine bone detail. A large amount of formed stool present throughout the colon. Mild gaseous distention of the distal transverse, descending and sigmoid colon present without dilatation. No dilated loops of bowel. No air-fluid levels. No acute osseous abnormality. IMPRESSION: Large amount of formed stool throughout the colon with nondilated, nonobstructed bowel gas pattern Electronically signed by Sanaz Santos 10-23-2024 4:56 PM Knee X-Ray 10/23/24 18:08 EXAMINATION: X-ray right knee 1 or 2 view routine CLINICAL HISTORY: Right knee pain PRIORS: None TECHNIQUE: Frontal and lateral view knee. FINDINGS: Bone stock appears preserved. Moderate prepatellar soft tissue swelling or fluid present with small suprapatella joint effusion. No acute fracture or dislocation. Patella is not high riding. A fabella is noted, variant anatomy. Mild medial compartment joint space narrowing. IMPRESSION: Moderate prepatellar soft tissue swelling or bursitis. ACT 112: Positive. There are findings on this examination that require communication between the performing entity and the patient following Patient Test Result Information Act ([place] ACT 112) guidelines. Electronically signed by Sanaz Santos 10-23-2024 6:41 PM PG Care Time/CCT Total # of Minutes Spent Total Time Spent with Patient: Total time spent is greater than 50% in coordination of care (as documented) at patient's floor/unit and/or counseling patient: Coding Level of Care Code 36824 SUB INP/OBS CARE 3/50MIN Diagnoses Acute on chronic respiratory failure with hypoxia and hypercapnia J96.21; J96.22 Obesity E66.9 Seizure disorder G40.909 COPD (chronic obstructive pulmonary disease) J44.9 CKD (chronic kidney disease), stage III N18.30 Secondary adrenal insufficiency E27.49 Pituitary hypogonadism E23.0 Pituitary hypothyroidism E03.8 Atrial fibrillation I48.91 Bipolar disorder F31.9 Obstructive sleep apnea G47.33
[2024-10-24] MEDS: DULoxetine HCL 60 MG CAP PO SCH (09:55)
[2024-10-24] MEDS: METOPROLOL SUCC 25MG EXT REL TAB PO SCH (09:55)
--- NOTE | 2024-10-24 10:03 | Pharmacy Report ---
Pharmacy Glycemic Short Note 2 - Date of Service October 24, 2024 - Glycemic Short BSG Results (Last 24 hours): 10/23/24 10/23/24 10/23/24 14:05 14:13 19:40 Glucose 156 H POC Glucose 231 H POC Glucose (other) 158 H 10/23/24 10/24/24 10/24/24 21:20 05:50 07:19 Glucose 145 H 130 H POC Glucose 163 H POC Glucose (other) OUTPATIENT ANTIDIABETIC REGIMEN: * Lantus 12 units hs, metformin 1 gm bid, wegovy 0.25 mg SQ weekly ASSESSMENT: * 54 year old admitted with shortness of breath, concerns for pneumonia. Started on antibiotics. Pharmacy consulted for glycemic management. Received 1/2 dose of home basal insulin last evening, fasting BSG 130 mg/dL - reasonable to continue similar regimen today. May need to tighten CF/CR if BSGs trending upward. PLAN FOR INPATIENT GLYCEMIC CONTROL: * Hold outpatient oral diabetes medications * Basal insulin * Lantus 6 units hs * Bolus insulin * NovoLog per scale ACHS or Q6hrs while NPO * Goal Range: Low 110 mg/dL - High 140 mg/dL * Correction Factor: 25 mg/dL/unit * Nutritional / Prandial insulin per carb ratio of 1 unit per 10 grams CHO consumed
[2024-10-24] MEDS: FUROSEMIDE 40 MG/4 ML VIAL IV ONE (10:07)
[2024-10-24] MEDS: MAGNESIUM OXIDE 400 MG TAB PO SCH (10:35)
[2024-10-24 12:28] LABS: BUN Creatinine Ratio 16.1 (10-20); Calcium 8.8 mg/dl (8.6-10.3); Creatinine Clr Calc Pharmacy 91.8 ml/min; Magnesium 1.4 mg/dl (1.7-2.4); Potassium 4.4 mmol/L (3.5-5.1)
[2024-10-24] MEDS: HYDROCORTISONE SOD 50 MG in SYRINGE 0 ML IV SCH (14:31)
[2024-10-24] MEDS: MAGNESIUM SULFATE / D5W 1 GM/100 ML BAG IV SCH (14:40)
[2024-10-24] MEDS: POLYETHYLENE (MIRALAX) 17 GM PACK PO ONE (14:40)
--- NOTE | 2024-10-24 14:40 | XCELERA ---
[id number]
--- NOTE | 2024-10-24 15:06 | Billing Data ---
Date of Service October 23, 2024 Coding Level of Care Code 63615 INT INP/OBS CARE
--- NOTE | 2024-10-24 15:50 | CT Scan Report ---
CT OF THE CHEST WITHOUT IV CONTRAST CLINICAL HISTORY: sob, ?PNEUMONIA ?CHF COMPARISON STUDY: Chest CT March 30, 2024. Chest radiograph October 23, 2024. CT DOSE: 834.87 mGy.cm TECHNIQUE: Axial images of the chest were obtained without IV contrast. Images were reviewed in the axial, sagittal, and coronal planes. IV contrast was not administered for this examination. Automat ed exposure control was utilized for the study. A dose lowering technique was utilized adhering to t he principles of ALARA. FINDINGS: Left atrial appendage occluder device is in place. The heart is mildly enlarged. There is no pericardial effusion. Prominent mediastinal lymph nodes are unchanged. There is no pneumothorax. T here are small bilateral pleural effusions. Interlobular septal thickening is present with patchy nolan undglass opacities. A few additional alveolar opacities within the right middle and right lower lobe measure up to 1.8 cm. These are new since CT of March 30, 2024. Central airways are patent. There are n o acute fractures within the bony thorax. Visualized portions of the upper abdomen are unremarkable. IMPRESSION: 1. Cardiomegaly with mild pulmonary edema and small bilateral pleural effusions. 2. A few alveolar opacities within the right middle and right lower lobes. The findings favor a super imposed mild infectious process. Alveolar pulmonary edema could appear similar although is considered less likely. A chest CT in 3 months to ensure resolution is recommended. ACT 112: Negative or not required by law. Electronically signed by: Aditya Foley M.D. 10/24/2024 3:49 PM
[2024-10-24] MEDS: FUROSEMIDE INJ 20 MG/2 ML VIAL IV SCH (18:31)
[2024-10-24 20:44] LABS: BUN Creatinine Ratio 17.6 (10-20); Calcium 8.9 mg/dl (8.6-10.3)
[2024-10-24] MEDS: POLYETHYLENE (MIRALAX) 17 GM PACK PO SCH (21:10)
[2024-10-24] MEDS: SENNA 8.6 MG TAB PO SCH (21:10)
[2024-10-25 06:47] LABS: Basophils # (auto) 0.02 K/uL (0.00-0.20); Basophils % (auto) 0.2 %; Eosinophils # (auto) 0.01 K/uL (0.00-0.50); Eosinophils % (auto) 0.1 %; Hematocrit (blood only) 33.9 % (42.0-52.0); Hemoglobin 11.5 g/dl (14.0-18.0); Immature Granulocytes # (auto) 0.22 K/uL (0.01-0.20); Immature Granulocytes % (auto) 1.7 %; Lymphocytes # (auto) 1.27 K/uL (1.20-3.40); Lymphocytes % (auto) 9.6 %; Mean Corpuscular Hemoglobin 29.8 pg (25.0-34.0); Mean Corpuscular Hgb Conc 33.9 g/dL (32.0-36.0); Mean Corpuscular Volume 87.8 fL (80.0-100.0); Mean Platelet Volume 8.7 fL (9.4-12.4); Monocytes # (auto) 0.69 K/uL (0.11-0.59); Monocytes % (auto) 5.2 %; Neutrophils # (auto) 11.07 K/uL (1.40-6.50); Neutrophils % (auto) 83.2 %; Platelet Count 183 K/uL (130-400); RDW Coefficient of Variation 15.1 % (11.5-14.5); RDW Standard Deviation 48.4 fL (36.4-46.3); Red Blood Count 3.86 M/uL (4.70-6.10); White Blood Count 13.28 K/ul (4.8-10.8)
[2024-10-25] MEDS ORDERED: FUROSEMIDE INJ 20 MG/2 ML VIAL IV SCH (07:00)
[2024-10-25 07:03] LABS: BUN Creatinine Ratio 23.6 (10-20); Calcium 8.4 mg/dl (8.6-10.3); Creatinine Clr Calc Pharmacy 102.3 ml/min; Magnesium 2.1 mg/dl (1.7-2.4); Potassium 4.2 mmol/L (3.5-5.1)
[2024-10-25] MEDS: ENOXAPARIN INJ 40 MG/0.4 ML SYR SQ SCH (08:18)
[2024-10-25] MEDS: ASPIRIN 81 MG ECTAB PO SCH (08:18)
--- NOTE | 2024-10-25 09:43 | Hospitalist Progress Note ---
Date of Service October 25, 2024 Assessment & Plan (1) Acute on chronic respiratory failure with hypoxia and hypercapnia: (2) Obesity: (3) Seizure disorder: (4) COPD (chronic obstructive pulmonary disease): (5) CKD (chronic kidney disease), stage III: (6) Secondary adrenal insufficiency: (7) Pituitary hypogonadism: (8) Pituitary hypothyroidism: (9) Atrial fibrillation: (10) Bipolar disorder: (11) Obstructive sleep apnea: Plan 54-year-old male with past medical history of COPD/CORINA on 2 L of oxygen via nasal cannula, noncompliant with CPAP, diabetes insipidus, morbid obesity, seizure disorder, bipolar disorder, 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, atrial fibrillation with watchman's, CKD stage III, history of CVA, nonobstructive coronary artery disease, chronic low back pain, BPH who presented to the hospital on 10/23/2024 for shortness of breath #Acute on chronic hypoxic and hypercapnic respiratory failure #CORINA noncompliant with CPAP #COPD # Right sided multilobar pneumonia # Acute on chronic diastolic congestive heart failure with preserved ejection fraction Chest x-ray shows vascular congestion with bibasilar infiltrates which may be atelectasis Procalcitonin level is normal Bio fire negative CT chest shows cardiomegaly with mild pulmonary edema and small bilateral pleural effusions. Few alveolar opacities within right middle and right lower lobes with findings favoring a superimposed mild infectious process. Radiology reports recommending repeat CT chest in 3 months to ensure resolution. 2D echo from 10/24/2024 shows left ventricular systolic function is normal, EF is 60 to 65%, no significant valvular pathology noted, no regional wall motion abnormalities noted, compared with study from 12/03/2023, no significant change. Patient seems to have combination of CHF and pneumonia in setting of noncompliance with CPAP and underlying COPD Switch hydrocortisone to oral hydrocortisone 25 mg p.o. twice daily Continue antibiotics: Cefepime plus azithromycin (day 3) Patient's respiratory symptoms have also improved with IV Lasix diuresis: Patient is not at his baseline oxygen requirements Switch IV Lasix to Bumex 1 mg p.o. daily Speech therapy consult given right-sided pneumonia I/O monitoring Daily weights #History of CVA #Nonobstructive coronary disease #Atrial fibrillation status post watchman's #Acute on chronic diastolic congestive heart failure with preserved ejection fraction Continue aspirin plus Plavix plus Crestor plus Toprol-XL 25 mg daily Switch IV Lasix to oral Bumex 1 mg p.o. daily I/O monitoring Daily weights Monitor vital signs #Panhypopituitarism #Hypothyroidism #Hyponatremia Outpatient database security administrator Dr. Martínez Voss Baseline sodium levels around 135 Continue levothyroxine 200 mcg p.o. daily Continue desmopressin to 0.2 mg p.o. twice daily given hyponatremia Patient is asymptomatic from hyponatremia, monitor sodium levels which have been stable around 128 Stop IV hydrocortisone and switch to oral hydrocortisone 25 mg p.o. twice daily with view of of tapering down to home dose of hydrocortisone 20 mg every morning and 10 mg every afternoon #Type 2 diabetes mellitus A1c is 5.4 Pharmacy managing glycemic control while patient is on steroids #Bipolar disorder Continue lithium and aripiprazole #Seizure disorder Continue Keppra plus lacosamide plus Depakote Seizure precautions Patient sees Dr. Brian Mariee neurologist in [place]: Appointment is on December 07, 2023 at 3:30 PM #Chronic low back pain Avoid opiates Tylenol as needed Continue duloxetine #Morbid obesity BMI is 42.5 Lifestyle counseling regarding diet, exercise and weight loss provided #Constipation Noted on KUB Senna plus MiraLAX: Patient refusing laxatives CODE STATUS: DNR but not DNI DVT prophylaxis: Lovenox 40 mg subcutaneous daily Awaiting physical therapy consult regarding discharge planning Care plan discussed with patient, nursing staff Admission and Anticipated Discharge Date Admission Date: October 23, 2024 Subjective Patient seen and examined Labs reviewed Echo reviewed Radiology reviewed Telemetry reviewed Patient refused BiPAP overnight and continues to refuse it Discussed importance of wearing CPAP/BiPAP He denies any headache, dizziness, chest pain, shortness of breath. Reports improvement in his shortness of breath and cough and also improvement in leg edema Denies any nausea, vomiting or abdominal pain Physical Exam Physical Exam: General: No acute distress, talking in full sentences Psych: Awake and alert, oriented to place person and time. He was able to tell me that Anders Abraham is president elect HEENT: Anicteric sclera, moist oral mucosa CVS: Regular rate and rhythm Lungs: Bilateral air entry with clear breath sounds, no wheezing noted Abdomen: Soft, nontender, no rebound, no guarding Ext: 2+ pitting edema noted improving, no calf tenderness, back of right knee with skin excoriations, no discharge noted Neuro: No focal motor deficits noted Results & Data Results & Data Vital Signs (Past 12 Hours) Vital Signs Temp Pulse Pulse Resp BP Pulse Ox O2 Del Method 10/25/24 07:29 36.3 C L 72 18 161/85 H 95 Nasal Cannula 10/25/24 07:10 71 16 97 Nasal Cannula 10/25/24 03:56 36.6 C 75 20 126/70 97 Nasal Cannula 10/24/24 22:42 36.5 C 83 20 121/83 91 Nasal Cannula 10/24/24 22:00 Nasal Cannula 10/24/24 21:45 82 O2 Flow Rate 10/25/24 07:29 2.0 10/25/24 07:10 2 10/25/24 03:56 3 10/24/24 22:42 3 10/24/24 22:00 3 10/24/24 21:45 Laboratory Results Laboratory Results - last 24 hr 10/24/24 10/24/24 10/24/24 10:06 11:22 11:28 WBC RBC Hgb Hct MCV MCH MCHC RDW Std Deviation RDW Coeff of Yanira Plt Count MPV Immature Gran % (Auto) Neut % (Auto) Lymph % (Auto) [place] % (Auto) Eos % (Auto) Baso % (Auto) Neut # (Auto) Lymph # (Auto) [place] # (Auto) Eos # (Auto) Baso # (Auto) Immature Gran # (Auto) Sodium 128 L Potassium 4.4 Chloride 88 L Carbon Dioxide 29 Anion Gap 11 BUN 20 Creatinine 1.24 Est Cr Clr Drug Dosing 91.8 eGFR 68.24 BUN/Creatinine Ratio 16.1 Glucose 160 H POC Glucose 121 H 159 H Calcium 8.8 Magnesium 1.4 L B-Natriuretic Peptide 157 H Vitamin B12 10/24/24 10/24/24 10/24/24 16:28 19:32 19:56 WBC RBC Hgb Hct MCV MCH MCHC RDW Std Deviation RDW Coeff of Yanira Plt Count MPV Immature Gran % (Auto) Neut % (Auto) Lymph % (Auto) [place] % (Auto) Eos % (Auto) Baso % (Auto) Neut # (Auto) Lymph # (Auto) [place] # (Auto) Eos # (Auto) Baso # (Auto) Immature Gran # (Auto) Sodium 127 L Potassium 4.0 Chloride 85 L Carbon Dioxide 36 H Anion Gap 6 BUN 22 Creatinine 1.25 Est Cr Clr Drug Dosing 91.0 eGFR 67.58 BUN/Creatinine Ratio 17.6 Glucose 123 H POC Glucose 103 H 132 H Calcium 8.9 Magnesium Cancelled B-Natriuretic Peptide Vitamin B12 10/24/24 10/25/24 10/25/24 21:12 06:16 07:21 WBC 13.28 H RBC 3.86 L Hgb 11.5 L Hct 33.9 L MCV 87.8 MCH 29.8 MCHC 33.9 RDW Std Deviation 48.4 H RDW Coeff of Yanira 15.1 H Plt Count 183 MPV 8.7 L Immature Gran % (Auto) 1.7 Neut % (Auto) 83.2 Lymph % (Auto) 9.6 [place] % (Auto) 5.2 Eos % (Auto) 0.1 Baso % (Auto) 0.2 Neut # (Auto) 11.07 H Lymph # (Auto) 1.27 [place] # (Auto) 0.69 H Eos # (Auto) 0.01 Baso # (Auto) 0.02 Immature Gran # (Auto) 0.22 H Sodium 128 L Potassium 4.2 Chloride 87 L Carbon Dioxide 33 H Anion Gap 8 BUN 25 H Creatinine 1.06 Est Cr Clr Drug Dosing 102.3 eGFR 82.37 BUN/Creatinine Ratio 23.6 H Glucose 134 H POC Glucose 116 H Calcium 8.4 L Magnesium 2.3 2.1 B-Natriuretic Peptide Vitamin B12 [address] 10/24/24 13:42 CT OF THE CHEST WITHOUT IV CONTRAST CLINICAL HISTORY: sob, ?PNEUMONIA ?CHF COMPARISON STUDY: Chest CT March 30, 2024. Chest radiograph October 23, 2024. CT DOSE: 834.87 mGy.cm TECHNIQUE: Axial images of the chest were obtained without IV contrast. Images were reviewed in the axial, sagittal, and coronal planes. IV contrast was not administered for this examination. Automated exposure control was utilized for the study. A dose lowering technique was utilized adhering to the principles of ALARA. FINDINGS: Left atrial appendage occluder device is in place. The heart is mildly enlarged. There is no pericardial effusion. Prominent mediastinal lymph nodes are unchanged. There is no pneumothorax. There are small bilateral pleural effusions. Interlobular septal thickening is present with patchy groundglass opacities. A few additional alveolar opacities within the right middle and right lower lobe measure up to 1.8 cm. These are new since CT of March 30, 2024. Central airways are patent. There are no acute fractures within the bony thorax. Visualized portions of the upper abdomen are unremarkable. IMPRESSION: 1. Cardiomegaly with mild pulmonary edema and small bilateral pleural effusions. 2. A few alveolar opacities within the right middle and right lower lobes. The findings favor a superimposed mild infectious process. Alveolar pulmonary edema could appear similar although is considered less likely. A chest CT in 3 months to ensure resolution is recommended. ACT 112: Negative or not required by law. Electronically signed by: Aditya Foley M.D. 10/24/2024 3:49 PM PG Care Time/CCT Total # of Minutes Spent Total Time Spent with Patient: Total time spent is greater than 50% in coordination of care (as documented) at patient's floor/unit and/or counseling patient: Coding Level of Care Code 13037 SUB INP/OBS CARE 3/50MIN Diagnoses Acute on chronic respiratory failure with hypoxia and hypercapnia J96.21; J96.22 Obesity E66.9 Seizure disorder G40.909 COPD (chronic obstructive pulmonary disease) J44.9 CKD (chronic kidney disease), stage III N18.30 Secondary adrenal insufficiency E27.49 Pituitary hypogonadism E23.0 Pituitary hypothyroidism E03.8 Atrial fibrillation I48.91 Bipolar disorder F31.9 Obstructive sleep apnea G47.33
[2024-10-25] MEDS: CYANOCOBALAMIN 1000 MCG/ML VIAL IM SCH (10:31)
[2024-10-25] MEDS: VITAMIN B COMPLEX TAB PO SCH (10:31)
--- NOTE | 2024-10-25 12:18 | Communication Note ---
Date of Service: October 25, 2024 Patient with right blurry vision, symptoms started about 10 minutes ago. Patient states he has never had blurry vision in his right eye before. He yessica es wearing glasses. He is ambulating, strength is 5 out of 5 in all 4 extremities, no focal motor deficits noted. Right eye peripheral visual field defect noted with patient noting blurry vision during eye exam, right pupil slightly larger than left pupil (unclear if this is new or old since patient does have history of pituitary surgery x 2) Stroke alert called Stat head CT Patient is already on aspirin plus Plavix and statin He has a watchman's device for A-fib Will await tele neurology consult and recommendations. I also spoke with patient's outpatient sales team manager Dr. Martínez Voss: Dis cussed hyponatremia. Per endocrinology standpoint, okay to resume home dose of desmopressin 0.4 mg p.o. twice daily and outpatient follow-up with endocrinology.
--- NOTE | 2024-10-25 12:40 | CT Scan Report ---
CT head/brain wo con CLINICAL HISTORY: 54 years-old Male with right eye blurry vision, NIHH 1. Acute strokelike symptoms with blurred vision. TECHNIQUE: Multiple axial CT images of the head were obtained without contrast. A dose lowering tech nique was utilized adhering to the principles of ALARA. CT DOSE: 625.8 mGy.cm COMPARISON: 09/18/2024 FINDINGS: No acute intracranial hemorrhage, midline shift, intra-axial mass, hydrocephalus, territorial ischemi a or abnormal extra-axial collection. Unchanged appearance of the posterior fossa arachnoid cyst vers us magna cisterna magna. The calvarium is intact. The paranasal sinuses, mastoid air cells, and middle ear cavities are clear . IMPRESSION: No acute intracranial abnormality. ACT 112: Negative or not required by law. The above report was generated using voice recognition software. It may contain grammatical, syntax o r spelling errors. Electronically signed by: Bean Tolentino M.D. 10/25/2024 12:38 PM
--- NOTE | 2024-10-25 13:33 | Communication Note ---
Date of Service: October 25, [address] Jones ([phone]) neurologist from [facility]: He reviewed the CT head which was negative. Patient has painless right eye blurry vision. Neurology is recommending stroke workup with MRI of the brain, MRI of the orbits, MRA of the head and neck without contrast and also recommending ophthalmology consult. No TNK per neurology. As per neurology, continue aspirin and Plavix for now and if any evidence of bleeding noted on scans, to stop aspirin and Plavix. Ophthalmology consulted: I spoke with Dr. Skyler Sen who will see the patient in consultation
[2024-10-25] MEDS: HYDROCORTISONE 10 MG TAB PO SCH (17:52)
--- NOTE | 2024-10-25 18:02 | Ophthalmology Consultation ---
Date of Consultation October 25, 2024 Assessment & Plan (1) Combined form of senile cataract of right eye: Discussed with patient that the primary reason for his blurred vision in the right eye is development of posterior subcapsular cataract. It would be very rare for this type of cataract to develop within minutes to hours or days. It is more likely that this has been going on for several months at least. Discussed with the primary team to cancel the stroke workup. Patient can be seen as an outpatient for a cataract evaluation. He is welcome to schedule with our office as long as we participate with his insurance. (2) Secondary cataract of left eye with vision obscured: Reports history of cataract surgery several years ago by [facility]. He has developed posterior capsule opacity in the left eye that his causing blurred vision in that eye as well. I discussed with him that the treatment for this is a YAG capsulotomy that can be done as an outpatient. (3) Ocular hypertension: His eye pressures were 33 in the right eye and 32 in the left eye when checking with Darshan-Pen, but he was squeezing his eyelids closed when trying to check his pressure which can artificially inflate the readings. He denies any family history for glaucoma or previous high eye pressures. I would recommend that he obtain a glaucoma workup upon discharge. (4) Epiretinal membrane (ERM) of left eye: He has a possible epiretinal membrane in the left macula. This could also be contributing to some blurry vision in his left eye. He should have some retinal imaging done as an outpatient when he comes for his cataract evaluation and glaucoma evaluation. (5) Presbyopia of both eyes: He needs a refraction as an outpatient to check for prescription glasses, but he should get cataract surgery and a YAG PC done prior to getting new glasses regardless. History of Present Illness Reason for Consultation: Blurry vision in the right eye Requesting Physician: Kam Miller MD Attending Physician: Kam Miller MD History of Present Illness This is a patient is a 54-year-old male with past medical history of COPD, CORINA, ulcerative colitis, migraines, hypertension, atrial fibrillation, panhypopituitary is him, seizure disorder, type 2 diabetes, and bipolar disorder who presented to [facility] undergoing 324 for evaluation of shortness of breath he was diagnosed with pneumonia and acute hypercapnic respiratory failure as well as a COPD exacerbation. He complained today of new right eye blurry vision and possible right sided field deficit. Teleneurology was consulted and reviewed a stat head CT that was negative for acute stroke they recommended MRI of the brain and orbits and MRA of the head and neck and an ophthalmology consult. Speaking with the patient, he is unsure of how long the right eye vision has been blurry; he says it has been at least a few days. He denies associated headache, eye redness, discharge, slurred speech, facial droo p, extremity weakness. He has not had his eyes checked in over 3 years. Allergies Allergy/AdvReac Type Severity Reaction Status Date / Time clindamycin Allergy Intermediate SWELLING Verified 10/05/24 14:40 Iodinated Contrast Media Allergy Intermediate face/eye Verified 10/05/24 14:40 swelling Quinolones Allergy Intermediate HIVES Verified 10/05/24 14:40 Home Medications Medication Instructions Recorded Confirmed Type lithium carbonate 300 mg tablet 300 mg PO AMHS 06/04/22 10/05/24 History celecoxib 200 mg capsule 200 mg PO DAILY PRN Pain 06/23/22 10/05/24 History duloxetine 30 mg capsule,delayed 30 mg PO HS 06/23/22 10/05/24 History release mirtazapine 30 mg tablet (Remeron) 30 mg PO HS 06/23/22 10/05/24 History blood sugar diagnostic (OneTouch 08/06/22 10/05/24 History Verio test strips) duloxetine 60 mg capsule,delayed 60 mg PO QAM 11/09/22 10/05/24 History release prazosin 5 mg capsule (Minipress) 5 mg PO HS 11/09/22 10/05/24 History fluticasone propionate 50 1 spray intranasal HS PRN allergy 03/16/23 10/05/24 Rx mcg/actuation nasal symptoms #16 grams spray,suspension (Flonase Allergy Relief) FreeStyle Rosalie 2 [place] (flash #1 ea 05/13/23 10/05/24 Rx glucose scanning reader) rimegepant 75 mg disintegrating 75 mg PO DAILY PRN Migraine 09/14/23 10/05/24 Rx tablet (Nurtec ODT) Headache #8 tabs lorazepam 0.5 mg tablet 0.5 mg PO DAILY PRN Seizure 09/19/23 10/05/24 History Activity blood sugar diagnostic (OneTouch #150 ea 11/22/23 10/05/24 Rx Verio test strips) blood-glucose meter (OneTouch #1 ea 11/22/23 10/05/24 Rx Verio Reflect Meter) insulin syringe-needle U-100 1 mL #300 ea 11/22/23 10/05/24 Rx 30 gauge x 1/2" (BD Insulin Syringe Ultra-Fine) lancets 33 gauge (OneTouch Delica #150 ea 11/22/23 10/05/24 Rx Plus Lancet) ferrous sulfate 325 mg (65 mg 325 mg PO QAM 02/20/24 10/05/24 History iron) tablet albuterol sulfate 90 mcg/actuation 2 inh inhalation Q6H PRN shortness 02/24/24 10/05/24 Rx aerosol inhaler (Ventolin HFA) of breath or wheezing #6.7 grams metformin 1,000 mg tablet 1,000 mg PO BID #180 tabs 03/03/24 10/05/24 Rx somatropin 5 mg/1.5 mL (3.3 mg/mL) 0.3 mg (0.09 mL) subcut QPM #2 03/13/24 10/05/24 Rx subcutaneous pen injector syringes (Norditropin FlexPro) aspirin 81 mg tablet,delayed 81 mg PO QAM 04/06/24 10/05/24 History release dutasteride 0.5 mg capsule 0.5 mg PO QAM 04/06/24 10/05/24 History glucagon 3 mg/actuation nasal 3 mg intranasal ONCE PRN Severe 04/06/24 10/05/24 History spray (Baqsimi) Hypoglycemia oxybutynin chloride 5 mg tablet 5 mg PO HS PRN bladder spasms 04/06/24 10/05/24 History FreeStyle Rosalie 2 Sensor (flash #6 ea 05/02/24 10/05/24 Rx glucose sensor) testosterone 2 pump topical PM #75 grams 05/04/24 10/05/24 Rx aripiprazole 5 mg tablet 5 mg PO DAILY 05/29/24 10/05/24 History clopidogrel 75 mg tablet 75 mg PO QPM #30 tabs 05/31/24 10/05/24 Rx nystatin 100,000 unit/gram topical 1 applic topical BID #30 grams 06/19/2410/05 Rx cream insulin glargine 100 unit/mL (3 12 unit subcut HS 07/19/24 10/05/24 History mL) subcutaneous pen (Lantus Solostar U-100 Insulin) ipratropium 0.5 mg-albuterol 3 mg 3 ml inhalation QID PRN wheezing 07/31/24 10/05/24 Rx (2.5 mg base)/3 mL nebulization #90 mL soln nebulizers (Compact Compressor #1 ea 07/31/24 10/05/24 Rx Nebulizer) metoprolol succinate 25 mg 25 mg PO DAILY #30 tabs 08/29/24 10/05/24 Rx tablet,extended release 24 hr Botox 200 unit injection See Rx Instructions IM .COMPLEX #1 09/18/24 10/05/24 Rx (onabotulinumtoxinA) ea cholecalciferol (vitamin D3) 50 50 mcg PO QPM #90 caps 09/19/24 10/05/24 Rx mcg (2,000 unit) capsule lacosamide 150 mg tablet 150 mg PO BID #60 tabs 09/19/24 10/05/24 Rx rosuvastatin 20 mg tablet 20 mg PO QAM #90 tabs 09/19/24 10/05/24 Rx pantoprazole 40 mg tablet,delayed 40 mg PO BID #60 tabs 09/21/24 10/05/24 Rx release furosemide 20 mg tablet 20 mg PO DAILY 10/03/24 10/05/24 History hydrocodone 7.5 mg-acetaminophen 1 tab PO Q6H PRN 10/03/24 10/05/24 History 325 mg tablet levetiracetam 1,000 mg tablet 1,000 mg PO Q12H 10/03/24 10/05/24 History potassium chloride 20 mEq 20 meq PO DAILY 10/03/24 10/05/24 History tablet,extended release semaglutide (weight loss) 0.25 0.25 mg subcut Q7D 10/03/24 10/05/24 History mg/0.5 mL subcutaneous pen injector (Gerardo) trazodone 100 mg tablet 100 mg PO .qhs 10/03/24 10/05/24 History divalproex 250 mg tablet,delayed 1,000 mg PO DAILY 10/05/24 10/05/24 History release levothyroxine 200 mcg tablet 200 mcg PO QAM #30 tabs 10/22/24 Rx pen needle, diabetic 32 gauge x #100 ea 10/23/24 Rx 32" (BD Vy 2nd Gen Pen Needle) desmopressin 0.1 mg tablet (DDAVP) 0.4 mg (4 x 0.1 mg) PO BID #240 10/24/24 Rx tabs hydrocortisone 10 mg tablet 10 mg PO UD #135 tabs 10/24/24 Rx Patient History Medical History Toxic encephalopathy Chest pain Acute dyspnea Acute CHF Hypoglycemia Syncope and collapse Internal hemorrhoids Atrial fibrillation (02/15/24) Recurrent seizures Pituitary diabetes insipidus Spondylolysis, lumbar region Right lumbar radiculopathy HTN (hypertension) Bipolar disorder Adrenal insufficiency Pituitary adenoma Diabetes Bleeding (02/16/24) Acute blood loss anemia (02/19/24) Hyperactive gag reflex BRCA gene positive Family history of BRCA gene mutation PTSD (post-traumatic stress disorder) Epidural lipomatosis Chronic left sacroiliac pain Benzodiazepine overdose Presence of cardiac device Hx of fracture of foot Fracture of fibula, right, closed Cerebral concussion Orthostatic hypotension Pseudoseizures Sensorineural hearing loss of both ears Rectal bleeding History of COVID-19 Mitral valve regurgitation Vertigo Panhypopituitarism Lower extremity edema Elevated LFTs Bilateral hand pain Pituitary neoplasm Kidney stones Prostate mass Bladder mass Obstructive sleep apnea of adult Surgical History S/P TURP (status post transurethral resection of prostate) History of lumbar fusion History of cardiac cath S/P epidural steroid injection History of lithotripsy Status post right foot surgery History of bladder surgery History of prostate surgery History of colonoscopy History of esophagogastroduodenoscopy (EGD) History of tooth extraction History of wisdom tooth extraction History of brain surgery Family History Grandmother (Paternal) Family history of diabetes mellitus Aunt Family history of diabetes mellitus Uncle Family history of diabetes mellitus Father Prostate cancer Heart disease Mother Cardiac disorder Grandmother (Maternal) Myocardial infarction Other Asthma Cancer Hypertension No family history of adverse response to anesthesia No family history of bleeding disorder Stroke Denies family history of Ovarian cancer Breast cancer Colorectal cancer Social History Smoking Status: Former smoker Tobacco Type: Smokeless Tobacco (Dip or Chew) Second Hand Exposure: No; Do You Dip or Chew Tobacco: No; Tobacco Cessation Education Requested by Patient: No Hx Alcohol Use: Yes Alcohol type: beer Alcohol Intake Frequency: Never Hx Substance Use: No Preferred Language: Cambodian Communication Ability: Effective Communication Ability Comment: Unable to obtain due to patient condition. Visual Impairment: Limited Hearing Ability: Normal Mill Controller Required: No Beliefs That Will Affect Care: None marital status: Single Current Living Situation: Spouse Current Living Situation Comment: lives w/ and daughter current occupational status: disabled How many Children do You have: 3 Other Information That Helps Us Care for You: No Feels Safe at Home: Yes Safety Concerns: Feels Safe At This Time Childhood Exposure to Second-Hand Smoke: Yes (parents smoked) Diet: regular Diet Comment: going to be starting low carb/low calorie diet. caffeine: No (1/2 20 oz bottle of mountain dew. ) during the past year weight has: increased > 10 lbs Physical Activity Frequency: Daily Physical Activity Frequency Comment: walking, 1.5 miles daily. Seatbelt Use: always Gender Identity: Male Assistive Devices: Cane and Oxygen - Continuous Physical Exam Physical Exam: Visual acuity: Checked at near without correction is 20/400 in the right eye and 20/200 in the left eye Intraocular pressures: 33 in the right eye and 32 in the left eye with the patient squeezing Pupils: 8 mm reactive down to 6 mm in the right eye, 8 mm reacting down to 7 L in the left eye, no afferent pupillary defect Confrontational Visual Menard: Full in both eyes Extraocular movements: full in both eyes Slit lamp exam: Lids/Lashes: normal OU Conjunctiva and sclera: Normal OU Cornea: Clear OU Anterior Chamber: Deep and quiet OU Iris: Normal OU Lens: 1+ nuclear, 3-4+ posterior subcapsular, 1+ anterior subcapsular on the right, PCIOL with 2+ PCO on the left Vitreous: Clear OU Optic nerves: 0.3 cup, sharp and pink on the right; 0.3 cup with questionable mild pallor on the left Macula: No hemorrhage OD but poor view secondary to cataract, possible epiret inal membrane on the left. Vessels: Normal in both eyes Peripheral retina: Normal in both eyes Results & Data Vital Signs (Past 12 Hours) Vital Signs Temp Pulse Pulse Resp BP Pulse Ox Pulse Ox 10/25/24 16:53 88 10/25/24 15:38 36.5 C 81 18 143/88 H 93 10/25/24 13:31 77 17 95 10/25/24 13:25 95 10/25/24 11:24 36.5 C 77 19 146/72 H 95 10/25/24 10:24 10/25/24 10:23 74 10/25/24 07:29 36.3 C L 72 18 161/85 H 95 10/25/24 07:10 71 16 97 O2 Del Method O2 Flow Rate O2 Flow Rate 10/25/24 16:53 10/25/24 15:38 Nasal Cannula 2.0 10/25/24 13:31 Nasal Cannula 2 10/25/24 13:25 2 10/25/24 11:24 Nasal Cannula 2.0 10/25/24 10:24 Nasal Cannula 3 10/25/24 10:23 10/25/24 07:29 Nasal Cannula 2.0 10/25/24 07:10 Nasal Cannula 2
[2024-10-25] MEDS: DESMOPRESSIN ACETATE 0.1 MG TAB PO SCH (20:10)
[2024-10-25] MEDS: MAGNESIUM HYDROXIDE SUSP 30 ML UDC PO ONE (20:12)
[2024-10-26 07:24] LABS: Basophils # (auto) 0.03 K/uL (0.00-0.20); Basophils % (auto) 0.3 %; Eosinophils # (auto) 0.02 K/uL (0.00-0.50); Eosinophils % (auto) 0.2 %; Hematocrit (blood only) 34.6 % (42.0-52.0); Hemoglobin 11.9 g/dl (14.0-18.0); Immature Granulocytes # (auto) 0.15 K/uL (0.01-0.20); Immature Granulocytes % (auto) 1.6 %; Lymphocytes # (auto) 1.86 K/uL (1.20-3.40); Lymphocytes % (auto) 19.4 %; Mean Corpuscular Hemoglobin 30.4 pg (25.0-34.0); Mean Corpuscular Hgb Conc 34.4 g/dL (32.0-36.0); Mean Corpuscular Volume 88.3 fL (80.0-100.0); Mean Platelet Volume 8.8 fL (9.4-12.4); Monocytes % (auto) 7.3 %; Neutrophils # (auto) 6.82 K/uL (1.40-6.50); Neutrophils % (auto) 71.2 %; Platelet Count 177 K/uL (130-400); RDW Coefficient of Variation 15.1 % (11.5-14.5); RDW Standard Deviation 49.4 fL (36.4-46.3); Red Blood Count 3.92 M/uL (4.70-6.10); White Blood Count 9.58 K/ul (4.8-10.8)
[2024-10-26] MEDS: BUMETANIDE 1 MG TAB PO SCH (09:05)
[2024-10-26] MEDS: HYDROCORTISONE 10 MG TAB PO SCH (09:05)
[2024-10-26 09:52] LABS: BUN Creatinine Ratio 18.6 (10-20); Calcium 8.7 mg/dl (8.6-10.3); Chol HDL Ratio 3.4 (0-5); Creatinine Clr Calc Pharmacy 106.3 ml/min; Potassium 4.2 mmol/L (3.5-5.1)
[2024-10-26 11:10] VITALS: TEMP 97.9
[2024-10-26 12:14] VITALS: RESP 18; O2SAT 94
--- NOTE | 2024-10-26 13:03 | Discharge Summary ---
Discharge Summary Date of Service October 26, 2024 Principal Dx & Hospital Course #1 = Principal Diagnosis (1) Acute on chronic respiratory failure with hypoxia and hypercapnia: (2) Obesity: (3) Seizure disorder: (4) COPD (chronic obstructive pulmonary disease): (5) CKD (chronic kidney disease), stage III: (6) Secondary adrenal insufficiency: (7) Pituitary hypogonadism: (8) Pituitary hypothyroidism: (9) Atrial fibrillation: (10) Bipolar disorder: (11) Obstructive sleep apnea: Plan 54-year-old male with past medical history of COPD/CORINA on 2 L of oxygen via nasal cannula, not on CPAP, diabetes insipidus, morbid obesity, seizure disorder, bipolar disorder, 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, atrial fibrillation with watchman's, CKD stage III, history of CVA, nonobstructive coronary artery disease, chronic low back pain, BPH who presented to the hospital on 10/23/2024 for shortness of breath #Acute on chronic hypoxic and hypercapnic respiratory failure #CORINA noncompliant with CPAP #COPD # Right sided multilobar pneumonia # Acute on chronic diastolic congestive heart failure with preserved ejection fraction Chest x-ray shows vascular congestion with bibasilar infiltrates which may be atelectasis Procalcitonin level is normal Bio fire negative CT chest shows cardiomegaly with mild pulmonary edema and small bilateral pleural effusions. Few alveolar opacities within right middle and right lower lobes with findings favoring a superimposed mild infectious process. Radiology reports recommending repeat CT chest in 3 months to ensure resolution. 2D echo from 10/24/2024 shows left ventricular systolic function is normal, EF is 60 to 65%, no significant valvular pathology noted, no regional wall motion abnormalities noted, compared with study from 12/03/2023, no significant change. Patient seems to have combination of CHF and pneumonia in setting of underlying COPD Patient is finished 3 days of IV cefepime and azithromycin. Switch to oral Augmentin 875 p.o. twice daily for 5 more days Patient's respiratory symptoms have also improved with IV Lasix diuresis: Patient is at his baseline oxygen requirements Continue Bumex 1 mg p.o. daily Speech therapy saw the patient and no need for modified barium swallow at this point and he can continue on regular diet Patient states he is still waiting for CPAP machine and appears paperwork has not been done by his outpatient providers. He apparently had a sleep study done and needs a new one. I have advised him to follow-up with his PCP to help him arrange sleep study locally and also for him to follow-up with local log skidder Dr. Martínez: Information for pulmonology has been provided to patient. Patient benefited from using CPAP here at bedtime with improvement in his mentation and respiratory symptoms. Patient states he has an appointment with Dr. Brian Mariee in [place]: Appointment is on December 07, 2023 at 3:30 PM, but would prefer to see somebody locally sooner and will follow-up with his PCP for local referral. #History of CVA #Nonobstructive coronary disease #Atrial fibrillation status post watchman's #Acute on chronic diastolic congestive heart failure with preserved ejection fraction #Hyperlipidemia with hypertriglyceridemia Continue aspirin plus Plavix plus Crestor plus Toprol-XL 25 mg daily Continue Bumex 1 mg p.o. daily Outpatient follow-up with PCP and heart failure clinic Patient's triglyceride is 199: Discussed low-fat diet and outpatient follow-up with PCP and endocrinology #Panhypopituitarism #Hypothyroidism #Hyponatremia Outpatient mender hand Dr. Martínez Voss Baseline sodium levels around 135 Continue levothyroxine 200 mcg p.o. daily Continue desmopressin to 0.4 mg p.o. twice daily Patient is asymptomatic from hyponatremia, monitor sodium levels which have been stable around 128 Continue home dose of hydrocortisone 20 mg every morning and 10 mg every afternoon I spoke with his outpatient mender hand Dr. Voss and reviewed medications with him: Dr. Voss believes patient may not be compliant with taking levothyroxine in the morning and is recommended patient can switch it to bedtime if he is having a hard time taking his medications early in the morning. As per endocrinology, okay to continue desmopressin 0.4 mg p.o. twice daily and outpatient follow-up in endocrinology clinic #Type 2 diabetes mellitus A1c is 5.4 I spoke with his outpatient small kick press operator Dr. Voss: Okay to resume metformin and his home dose of Lantus 12 units nightly with outpatient follow-up with endocrinology Patient is also on Wegovy #Bipolar disorder Continue lithium and aripiprazole Resume trazodone and mirtazapine Outpatient follow-up with psychiatry to review medications which can also be sedating #Seizure disorder Continue Keppra plus lacosamide plus Depakote Seizure precautions #Chronic low back pain Avoid opiates Tylenol as needed Continue duloxetine #Morbid obesity BMI is 42.5 Lifestyle counseling regarding diet, exercise and weight loss provided #Constipation Noted on KUB Patient refused laxatives in the hospital but is agreeable to using them as needed outpatient He had a bowel movement this morning #Cataracts #Epiretinal membrane of left eye #Presbyopia of both eyes Patient complained of right eye blurry vision. Initially a stroke alert was called and he was seen by teleneurologist who recommended a stroke workup along with an ophthalmology consult [employer] Dr. Vila saw the patient in consultation and he went through a slit eye eye exam and was found to have right eye cataract. As per ophthalmology, blurry vision is from cataract and no need for stroke workup. Stroke workup was canceled as blurry vision in right eye was noted to be secondary to cataract. Ophthalmology has recommended patient follow-up with ophthalmology as outpatient: This was discussed with the patient Patient seen and examined today. He is at his baseline oxygen requirements of 2 L via nasal cannula. He denies any chest pain or shortness of breath and is clinically improved. He is stable for discharge. I have gone over the discharge care plan, follow-up and medications with the patient in great detail and answered all his questions. I have also provided the patient with written discharge instructions This discharge took greater than 30 minutes to coordinate Admission HPI Per Admitting Provider Pt is a 54 yo male with a past medical history of COPD on 2L NC baseline, CORINA, ulcerative colitis, panhypopituitarism with secondary adrenal insufficency, HTN, CKD stage 3, seizure disorder, DMT2 on insulin, chronic low back pain, bipolar disorder, and BPH who presents to the hospital on 10/23 for SOB. Pt seen at bedside, he is on bipap which somewhat limits conversation clarity. He states that a few days ago he started to feel fatigued with congestion, cough, and chills. He states he has not taken his temperature at home. He states when he started to feel ill he started steroid stress dosing (usually takes 20 mg hydrocortisone qam and 10 mg qpm, doubled both doses for stress dosing). He states that he continued to feel progressively worse. He had some "runny" nonbloody stools a few days ago but has not had any BM in days. Notes abdominal distention but no abdominal pain, just states he does not feel hungry at all and has had very poor po intake the last few days. He states that he has not been using his CPAP for "awhile now" since his device is downstairs and he wants to sleep upstairs in the house. He states he had an appt tomorrow for a new machine. Discharge Exam General: No acute distress, talking in full sentences Psych: Awake and alert, oriented to place person and time. HEENT: Anicteric sclera, moist oral mucosa CVS: Regular rate and rhythm Lungs: Bilateral air entry with clear breath sounds, no wheezing noted Abdomen: Soft, nontender, no rebound, no guarding Ext: trace pitting edema, no calf tenderness, back of right knee with skin excoriations, no discharge noted Neuro: No focal motor deficits noted Discharge Plan Discharge Items Patient Disposition: Home - Self-Care Reason For Visit: [facility] Discharge Diagnosis: #Acute on chronic hypoxic and hypercapnic respiratory failure #CORINA noncompliant with CPAP #COPD # Right sided multilobar pneumonia # Acute on chronic diastolic congestive heart failure with preserved ejection fraction #History of CVA #Nonobstructive coronary disease #Atrial fibrillation status post watchman's #Acute on chronic diastolic congestive heart failure with preserved ejection fraction #Hyperlipidemia with hypertriglyceridemia #Panhypopituitarism #Hypothyroidism #Hyponatremia #Type 2 diabetes mellitus #Bipolar disorder #Seizure disorder #Chronic low back pain #Morbid obesity #Constipation #Right eye cataract #Epiretinal membrane of left eye #Presbyopia of both eyes Activity: As commented below Activity Comment: As tolerated with assistance from your cane Bathing Comment: You may shower but no baths in the bathtub and no swimming Driving/Machine Use: No driving Non-emergency contact: Primary Care Provider Call non-emergency contact if: you have any medication questions, your symptoms worsen, your pain is not controlled and you have a fever Follow-up/Referrals: Larry Amaral MD [Primary Care Provider] - 11/02/24 3:00 pm (Hospital follow up scheduled November 02 at 3:00) Martínez Voss MD [Physician] - (Call to schedule follow up appointment) Sean Sow MD, [facility] [Physician] - 12/04/24 3:00 pm Les Sen DO [Physician] - (Call to schedule follow up appointment) Diet: Carb Consistent or DM2 and Low Fat Diet Comment: Sit upright in a chair for meals and eating meals slowly. Addtl Attending Provider Instructions: DISCHARGE INSTRUCTION TO PATIENT/FAMILY: Follow-up with your primary care provider within 1 week regarding: Posthospital discharge, medication review, medication refills and follow-up on all your medical problems, labs Please take all your discharge medications, discharge information and discharge instructions to all your doctors appointments. Avoid all NSAIDs including ibuprofen, Motrin, Advil, Aleve, naproxen, meloxicam, Toradol, diclofenac Please sit upright in the chair for all meals and eat meals slowly. No sleeping or lying down for at least 1 hour after meals It is very important that you are compliant with your thyroid medication which may be causing fluid overload and also constipation. Ideally you should be taking your thyroid medication levothyroxine on an empty stomach first thing in the morning. If you are having a hard time remembering to take your thyroid medication the morning, you may switch to taking your thyroid medication levothyroxine before going to bed at nighttime. This was discussed with your mender hand Dr. Voss. Please follow-up with your mender hand Dr. Voss in 1 to 2 weeks time Your triglyceride levels are high. Please follow a low-fat diet. Please follow-up with your mender hand and PCP regarding this You have sleep apnea. Please follow-up with your PCP as soon as possible to schedule an outpatient sleep study. Please call and follow-up with log skidder Dr. Sow locally regarding COPD and sleep apnea. You were seen by the management architect Dr. Vila and were found to have cataracts. Please follow-up with the management architect as outpatient in 1 to 2 weeks time Please follow-up with your outpatient psychiatrist to review your outpatient psychiatry medication since you have sleep apnea and some of these medications can be very sedating. You have constipation as evidenced by your x-ray results. You may take [id number] laxatives like MiraLAX and senna to ensure that you are having at least 1 bowel movement a day Labs through PCP in 1 week: CBC, CMP, MG Pending Studies at Discharge: No Stand-Alone Forms: My [facility], Smoking Cessation Medications and DC Order Prescriptions: New amoxicillin-pot clavulanate 875-125 mg Tablet 1 tab PO BIDM Qty: 10 0RF Rx Instructions: for 5 days, take with food bumetanide 1 mg Tablet 1 mg PO QAM Qty: 30 0RF vitamin B complex [Vitamins B Complex] Capsule 1 cap PO QAM Qty: 30 0RF Continued lithium carbonate 300 mg tablet 300 mg PO AMHS fluticasone propionate [Flonase Allergy Relief] 50 mcg/actuation spray,suspension 1 spray intranasal HS PRN (Reason: allergy symptoms) Qty: 16 0RF Rx Instructions: administer into each nostril (DME) insulin syringe-needle U-100 [BD Insulin Syringe Ultra-Fine] 1 mL 30 gauge x 1/2" syringe See Rx Instructions .Route Qty: 300 1RF Rx Instructions: use tid (DME) OneTouch Verio test strips Strip See Rx Instructions .MEDSUPPLY Qty: 150 5RF Rx Instructions: check blood sugars 4 times a day (DME) blood-glucose meter [OneTouch Verio Reflect Meter] Misc See Rx Instructions miscellaneous .MEDSUPPLY Qty: 1 0RF Rx Instructions: As directed (DME) lancets [OneTouch Delica Plus Lancet] 33 gauge misc See Rx Instructions .MEDSUPPLY Qty: 150 5RF Rx Instructions: As directed check blood sugars 4 times a day metformin 1,000 mg tablet 1,000 mg PO BID Qty: 180 3RF Hold Instructions: Per Dr Voss to hold as of 11/23/22 Norditropin FlexPro 5 mg/1.5 mL (3.3 mg/mL) pen injector 0.3 mg SQ QPM Qty: 2 5RF (DME) FreeStyle Rosalie 2 Sensor Kit See Rx Instructions .Route Qty: 6 3RF Rx Instructions: Change every 14 days testosterone 20.25 mg/1.25 gram (1.62 %) gel in metered-dose pump 2 pump TOP PM Qty: 75 5RF Rx Instructions: apply 1 pump amount over max area of EACH upper arm and shoulder PDMP Queried ok to fill 03/17/2023 DS nystatin 100,000 unit/gram cream 1 applic topical BID Qty: 30 0RF metoprolol succinate 25 mg tablet extended release 24 hr 25 mg PO DAILY Qty: 30 2RF Botox 200 unit recon soln See Rx Instructions IM .COMPLEX Qty: 1 3RF Rx Instructions: 155 UNITS IM IN THE FACE AND NECK MUSCLES EVERY 12 WEEKS PER MIGRAINE PROTOCOL lacosamide 150 mg tablet 150 mg PO BID Qty: 60 5RF cholecalciferol (vitamin D3) 50 mcg (2,000 unit) capsule 50 mcg PO QPM Qty: 90 1RF rosuvastatin 20 mg tablet 20 mg PO QAM Qty: 90 2RF pantoprazole 40 mg tablet,delayed release (DR/EC) 40 mg PO BID Qty: 60 5RF levothyroxine 200 mcg tablet 200 mcg PO QAM Qty: 30 3RF (DME) pen needle, diabetic [BD Vy 2nd Gen Pen Needle] 32 gauge x 5/32" needle See Rx Instructions miscellaneous .MEDSUPPLY Qty: 100 3RF Rx Instructions: inject with a new pen needle daily hydrocortisone 10 mg tablet 10 mg PO UD Qty: 135 1RF Rx Instructions: TAKE 20mg IN THE AM AND 10mg IN THE PM. MAY DOUBLE THE DOSE IN TIMES OF STRESS. desmopressin [DDAVP] 0.1 mg tablet 0.4 mg PO BID Qty: 240 1RF (DME) FreeStyle Rosalie 2 [place] Mis See Rx Instructions .Route Qty: 1 0RF Rx Instructions: Check blood glucose before each meal (DME) OneTouch Verio test strips Strip See Rx Instructions .Route Rx Instructions: Test blood sugar two times daily duloxetine 30 mg capsule,delayed release(DR/EC) 30 mg PO HS mirtazapine [Remeron] 30 mg tablet 30 mg PO HS Rx Instructions: Take 30mg w/ 15mg tablet to equal 45mg at bedtime. Nurtec ODT 75 mg tablet,disintegrating 75 mg PO DAILY PRN (Reason: Migraine Headache) Qty: 8 6RF albuterol sulfate [Ventolin HFA] 90 mcg/actuation HFA aerosol inhaler 2 inh inhalation Q6H PRN (Reason: shortness of breath or wheezing) Qty: 6.7 2RF (DME) nebulizers [Compact Compressor Nebulizer] [facility] [place] [facility] See Rx Instructions .Route Qty: 1 0RF Rx Instructions: One compact compressor nebulizer. Use as directed. Please include tubing, mouth piece and cup. ipratropium-albuterol 0.5 mg-3 mg(2.5 mg base)/3 mL solution for nebulization 3 ml inhalation QID PRN (Reason: wheezing) Qty: 90 0RF Wegovy 0.25 mg/0.5 mL pen injector 0.25 mg subcut Q7D Rx Instructions: 10/03/2024-patient does not have yet levetiracetam 1,000 mg tablet 1,000 mg PO Q12H trazodone 100 mg tablet 100 mg PO .qhs ferrous sulfate 325 mg (65 mg iron) tablet 325 mg PO QAM insulin glargine [Lantus Solostar U-100 Insulin] 100 unit/mL (3 mL) insulin pen 12 unit SUBCUT HS Hold Instructions: Has been on hold for a few weeks per pt Patient Comments: PER PT HE IS TAKING 12 UNITS -CONFIRMED ON 07/19/24 divalproex 250 mg tablet,delayed release (DR/EC) 1,000 mg PO DAILY Rx Instructions: extended release prazosin [Minipress] 5 mg capsule 5 mg PO HS duloxetine 60 mg capsule,delayed release(DR/EC) 60 mg PO QAM lorazepam 0.5 mg Tablet 0.5 mg PO DAILY PRN (Reason: Seizure Activity) aspirin 81 mg tablet,delayed release (DR/EC) 81 mg PO QAM oxybutynin chloride 5 mg tablet 5 mg PO HS PRN (Reason: bladder spasms) dutasteride 0.5 mg capsule 0.5 mg PO QAM Rx Instructions: TAKE 1 CAPSULE BY MOUTH DAILY IN THE MORNING Baqsimi 3 mg/actuation spray,non-aerosol 3 mg intranasal ONCE PRN (Reason: Severe Hypoglycemia) Rx Instructions: for treatment of severe hypoglycemia, second dose may be given if patient does not respond after 15 minutes . Per caregiver, pt has never has to use this medication. aripiprazole 5 mg tablet 5 mg PO DAILY clopidogrel 75 mg tablet 75 mg PO QPM Qty: 30 0RF Rx Instructions: last dose 10/14/24 Discontinued celecoxib 200 mg capsule 200 mg PO DAILY PRN (Reason: Pain) Hold Instructions: Resume on 06/07/24. Provider's Order hydrocodone-acetaminophen 7.5-325 mg tablet 1 tab PO Q6H PRN furosemide 20 mg tablet 20 mg PO DAILY potassium chloride 20 mEq tablet extended release 20 meq PO DAILY Discharge Orders: Discharge Order- CHF (Routine); Ordered 10/26/24 Ordered By: Kam Miller Admission Data Admit Date/Time: 10/23/24 17:31 Attending Provider: Kam Miller Admit Provider: Berta Shannon Primary Care Provider: Larry Amaral Other Providers: Trenton Carney; Les Sen Other Interventions: Discharge Summary Assessment (RN) Last Done: 10/26/24 13:46 Hospital Stay Data Consultations 10/23/24 14:37 ED Decision to Admit Stat 10/25/24 13:15 Consult Ophthalmology Stat Diagnostic Imagining Performed 10/24/24 13:42 CT chest diagnostic wo con Stat 10/25/24 12:18 CT head/brain wo con Stat Chest X-Ray 10/23/24 13:57 XR chest 1V portable CLINICAL HISTORY: Chest pain, nonspecific COMPARISON STUDY: Chest CT March 30, 2024. Chest CT July 15, 2024. Chest radiograph July 06, 2024. FINDINGS: There is no pneumothorax or pleural effusion. Cardiomegaly is again noted. Pulmonary vascular congestion is similar to prior exam. Right lower lobe opacity is noted. There is also left basilar opacity. IMPRESSION: 1. Cardiomegaly with pulmonary vascular congestion, similar to prior exam. 2. Bibasilar opacities which could reflect pneumonia or atelectasis. Radiographic follow-up to ensure resolution is recommended. ACT 112: Negative or not required by law. Electronically signed by: Aditya Foley M.D. 10/23/2024 2:16 PM KUB X-Ray 10/23/24 16:15 EXAMINATION: X-ray KUB/abdomen 1 view CLINICAL HISTORY: Pain PRIORS: None TECHNIQUE: Single frontal view abdomen FINDINGS: Large body habitus diminishes image quality. Surgical hardware present at L5-S1. Overlying bowel gas and stool obscures fine bone detail. A large amount of formed stool present throughout the colon. Mild gaseous distention of the distal transverse, descending and sigmoid colon present without dilatation. No dilated loops of bowel. No air-fluid levels. No acute osseous abnormality. IMPRESSION: Large amount of formed stool throughout the colon with nondilated, nonobstructed bowel gas pattern Electronically signed by Sanaz Santos 10-23-2024 4:56 PM Knee X-Ray 10/23/24 18:08 EXAMINATION: X-ray right knee 1 or 2 view routine CLINICAL HISTORY: Right knee pain PRIORS: None TECHNIQUE: Frontal and lateral view knee. FINDINGS: Bone stock appears preserved. Moderate prepatellar soft tissue swelling or fluid present with small suprapatella joint effusion. No acute fracture or dislocation. Patella is not high riding. A fabella is noted, variant anatomy. Mild medial compartment joint space narrowing. IMPRESSION: Moderate prepatellar soft tissue swelling or bursitis. ACT 112: Positive. There are findings on this examination that require communication between the performing entity and the patient following Patient Test Result Information Act ([place] ACT 112) guidelines. Electronically signed by Sanaz Santos 10-23-2024 6:[address] 10/24/24 13:42 CT OF THE CHEST WITHOUT IV CONTRAST CLINICAL HISTORY: sob, ?PNEUMONIA ?CHF COMPARISON STUDY: Chest CT March 30, 2024. Chest radiograph October 23, 2024. CT DOSE: 834.87 mGy.cm TECHNIQUE: Axial images of the chest were obtained without IV contrast. Images were reviewed in the axial, sagittal, and coronal planes. IV contrast was not administered for this examination. Automated exposure control was utilized for the study. A dose lowering technique was utilized adhering to the principles of ALARA. FINDINGS: Left atrial appendage occluder device is in place. The heart is mild ly enlarged. There is no pericardial effusion. Prominent mediastinal lymph nodes are unchanged. There is no pneumothorax. There are small bilateral pleural effusions. Interlobular septal thickening is present with patchy groundglass opacities. A few additional alveolar opacities within the right middle and right lower lobe measure up to 1.8 cm. These are new since CT of March 30, 2024. Central airways are patent. There are no acute fractures within the bony thorax. Visualized portions of the upper abdomen are unremarkable. IMPRESSION: 1. Cardiomegaly with mild pulmonary edema and small bilateral pleural effusions. 2. A few alveolar opacities within the right middle and right lower lobes. The findings favor a superimposed mild infectious process. Alveolar pulmonary edema could appear similar although is considered less likely. A chest CT in 3 months to ensure resolution is recommended. ACT 112: Negative or not required by law. Electronically signed by: Aditya Foley M.D. 10/24/2024 3:[address] 10/25/24 12:18 CT head/brain wo con CLINICAL HISTORY: 54 years-old Male with right eye blurry vision, NIHH 1. Acute strokelike symptoms with blurred vision. TECHNIQUE: Multiple axial CT images of the head were obtained without contrast. A dose lowering technique was utilized adhering to the principles of ALARA. CT DOSE: 625.8 mGy.cm COMPARISON: 09/18/2024 FINDINGS: No acute intracranial hemorrhage, midline shift, intra-axial mass, hydrocephalus, territorial ischemia or abnormal extra-axial collection. Unchanged appearance of the posterior fossa arachnoid cyst versus magna cisterna magna. The calvarium is intact. The paranasal sinuses, mastoid air cells, and middle ear cavities are clear. IMPRESSION: No acute intracranial abnormality. ACT 112: Negative or not required by law. The above report was generated using voice recognition software. It may contain grammatical, syntax or spelling errors. Electronically signed by: Bean Tolentino M.D. 10/25/2024 12:38 PM Laboratory Results - last 48 hr 10/24/24 10/24/24 10/24/24 16:28 19:32 19:56 WBC RBC Hgb Hct MCV MCH MCHC RDW Std Deviation RDW Coeff of Yanira Plt Count MPV Immature Gran % (Auto) Neut % (Auto) Lymph % (Auto) [place] % (Auto) Eos % (Auto) Baso % (Auto) Neut # (Auto) Lymph # (Auto) [place] # (Auto) Eos # (Auto) Baso # (Auto) Immature Gran # (Auto) Sodium 127 L Potassium 4.0 Chloride 85 L Carbon Dioxide 36 H Anion Gap 6 BUN 22 Creatinine 1.25 Est Cr Clr Drug Dosing 91.0 eGFR 67.58 BUN/Creatinine Ratio 17.6 Glucose 123 H POC Glucose 103 H 132 H Calcium 8.9 Magnesium Cancelled Triglycerides Cholesterol LDL Cholesterol, Calc VLDL Cholesterol, Calc HDL Cholesterol Cholesterol/HDL Ratio Vitamin B12 10/24/24 10/25/24 10/25/24 21:12 06:16 07:21 WBC 13.28 H RBC 3.86 L Hgb 11.5 L Hct 33.9 L MCV 87.8 MCH 29.8 MCHC 33.9 RDW Std Deviation 48.4 H RDW Coeff of Yanira 15.1 H Plt Count 183 MPV 8.7 L Immature Gran % (Auto) 1.7 Neut % (Auto) 83.2 Lymph % (Auto) 9.6 [place] % (Auto) 5.2 Eos % (Auto) 0.1 Baso % (Auto) 0.2 Neut # (Auto) 11.07 H Lymph # (Auto) 1.27 [place] # (Auto) 0.69 H Eos # (Auto) 0.01 Baso # (Auto) 0.02 Immature Gran # (Auto) 0.22 H Sodium 128 L Potassium 4.2 Chloride 87 L Carbon Dioxide 33 H Anion Gap 8 BUN 25 H Creatinine 1.06 Est Cr Clr Drug Dosing 102.3 eGFR 82.37 BUN/Creatinine Ratio 23.6 H Glucose 134 H POC Glucose 116 H Calcium 8.4 L Magnesium 2.3 2.1 Triglycerides Cholesterol LDL Cholesterol, Calc VLDL Cholesterol, Calc HDL Cholesterol Cholesterol/HDL Ratio Vitamin B12 379 10/25/24 10/25/24 10/25/24 11:23 16:02 19:52 WBC RBC Hgb Hct MCV MCH MCHC RDW Std Deviation RDW Coeff of Yanira Plt Count MPV Immature Gran % (Auto) Neut % (Auto) Lymph % (Auto) [place] % (Auto) Eos % (Auto) Baso % (Auto) Neut # (Auto) Lymph # (Auto) [place] # (Auto) Eos # (Auto) Baso # (Auto) Immature Gran # (Auto) Sodium Potassium Chloride Carbon Dioxide Anion Gap BUN Creatinine Est Cr Clr Drug Dosing eGFR BUN/Creatinine Ratio Glucose POC Glucose 108 H 106 H 118 H Calcium Magnesium Triglycerides Cholesterol LDL Cholesterol, Calc VLDL Cholesterol, Calc HDL Cholesterol Cholesterol/HDL Ratio Vitamin B12 10/26/24 10/26/24 10/26/24 06:17 07:27 11:41 WBC 9.58 RBC 3.92 L Hgb 11.9 L Hct 34.6 L MCV 88.3 MCH 30.4 MCHC 34.4 RDW Std Deviation 49.4 H RDW Coeff of [place]ira 15.1 H Plt Count 177 MPV 8.8 L Immature Gran % (Auto) 1.6 Neut % (Auto) 71.2 Lymph % (Auto) 19.4 [place] % (Auto) 7.3 Eos % (Auto) 0.2 Baso % (Auto) 0.3 Neut # (Auto) 6.82 H Lymph # (Auto) 1.86 [place] # (Auto) 0.70 H Eos # (Auto) 0.02 Baso # (Auto) 0.03 Immature Gran # (Auto) 0.15 Sodium 128 L Potassium 4.2 Chloride 91 L Carbon Dioxide 32 Anion Gap 5 BUN 19 Creatinine 1.02 Est Cr Clr Drug Dosing 106.3 eGFR 86.26 BUN/Creatinine Ratio 18.6 Glucose 92 POC Glucose 107 H 82 Calcium 8.7 Magnesium 2.0 Triglycerides 199 H Cholesterol 162 LDL Cholesterol, Calc 74 VLDL Cholesterol, Calc 40 H HDL Cholesterol 48 Cholesterol/HDL Ratio 3.4 Vitamin B12 Pending Results Patient Have Any Pending Studies at Discharge: No Discharge Instructions Given to Patient (Per Discharging Provider) DISCHARGE INSTRUCTION TO PATIENT/FAMILY: Follow-up with your primary care provider within 1 week regarding: Posthospital discharge, medication review, medication refills and follow-up on all your medical problems, labs Please take all your discharge medications, discharge information and discharge instructions to all your doctors appointments. Avoid all NSAIDs including ibuprofen, Motrin, Advil, Aleve, naproxen, meloxicam, Toradol, diclofenac Please sit upright in the chair for all meals and eat meals slowly. No sleeping or lying down for at least 1 hour after meals It is very important that you are compliant with your thyroid medication which may be causing fluid overload and also constipation. Ideally you should be taking your thyroid medication levothyroxine on an empty stomach first thing in the morning. If you are having a hard time remembering to take your thyroid medication the morning, you may switch to taking your thyroid medication levothyroxine before going to bed at nighttime. This was discussed with your mender hand Dr. Voss. Please follow-up with your mender hand Dr. Voss in 1 to 2 weeks time Your triglyceride levels are high. Please follow a low-fat diet. Please follow-up with your mender hand and PCP regarding this You have sleep apnea. Please follow-up with your PCP as soon as possible to schedule an outpatient sleep study. Please call and follow-up with log skidder Dr. Sow locally regarding COPD and sleep apnea. You were seen by the management architect Dr. Vila and were found to have cataracts. Please follow-up with the management architect as outpatient in 1 to 2 weeks time Please follow-up with your outpatient psychiatrist to review your outpatient psychiatry medication since you have sleep apnea and some of these medications can be very sedating. You have constipation as evidenced by your x-ray results. You may take [id number] laxatives like MiraLAX and senna to ensure that you are having at least 1 bowel movement a day Labs through PCP in 1 week: CBC, CMP, MG Total Time Total Time Spent Total Time Spent (In Minutes): 45 minutes Coding Level of Care Code 18848 INP/OBS DISCH >30 MIN Diagnoses Acute on chronic respiratory failure with hypoxia and hypercapnia J96.21; J96.22 Obesity E66.9 Seizure disorder G40.909 COPD (chronic obstructive pulmonary disease) J44.9 CKD (chronic kidney disease), stage III N18.30 Secondary adrenal insufficiency E27.49 Pituitary hypogonadism E23.0 Pituitary hypothyroidism E03.8 Atrial fibrillation I48.91 Bipolar disorder F31.9 Obstructive sleep apnea G47.33
[2024-10-26] MEDS: AMOXICILLIN/CLAVULANATE 875 MG TAB PO ONE (13:20)
[2024-10-26 13:47] VITALS: BP 138/81
[2024-10-26 14:35] VITALS: PULSE 89
[2024-10-26] MEDS ORDERED: AMOXICILLIN/CLAVULANATE 875 MG TAB PO SCH (17:00)
[2024-10-26] MEDS ORDERED: LANTUS PER UNIT CHARGE SQ SCH (21:00)
== END 2024-10-26 16:07 | disposition home or self-care (01) | DRG 193 ==
LOC: ED 13:50 → 2S 17:31 → SUATTDRO 17:31 → 2S 18:40

== ENCOUNTER 2024-11-19 09:17 | Observation (INO) ==
--- NOTE | 2024-11-19 11:06 | Emergency Department Note ---
Impression & Plan Cellulitis of leg, right, Acidosis, lactic, Obstructive sleep apnea, Atrial fibrillation, Seizure disorder ED Provider Note NAME: LINSEY VIRAMONTES Jr AGE: 54 SEX: M : 1970 ARRIVES VIA: Walk-In INFORMANT: Patient, significant other ED PROVIDER(S): Curtis Britton MD CHIEF COMPLAINT: Right leg wounds, outpatient referral MEDICAL DECISION MAKING: Patient presents due to concern for right lower extremity wounds and associated erythema. IV was established and blood work was obtained. Patient initially ordered IV Rocephin due to concern for cellulitis pending the results of his blood work.Patient's blood work shows a normal white count hemoglobin 11.5 with a normal platelet count. The patient's kidney function is unremarkable. Procalcitonin is not elevated. Initial lactate of 5. Given the elevated lactate IV fluids ordered and the patient's Rocephin was canceled and instead broad-spectrum antibiotics initiated with vancomycin and Zosyn. Given the elevated lactate do believe the patient would benefit from inpatient treatment for cellulitis. DVT ultrasound negative. The patient does not have evidence of crepitus or neck Fash based on exam and the patient does not exhibit overt signs of compartment syndrome. Compartments are soft. The patient does have decreased sensation to the lower extremity from the mid lugo down but this has been chronic in nature and has a good pedal pulse and no significant pain. I did speak the on-call hospitalist service Amie Rosado PA-C and the patient was admitted to the medicine service by Dr. Willingham. Discussion w/ other healthcare providers: Amie Rosado PA-C and Dr. Willingham inpatient medicine service Prior /Outside records reviewed: None Differential diagnosis: Cellulitis, abscess, MRSA infection, DVT, necrotizing fasciitis, dermatitis, drug eruption, allergic reaction, as well as other pathologies were considered. Diagnostics, as interpreted by me: ECG: None Cardiac monitoring: An order was placed for continuous cardiac monitoring. The monitor shows a rate of 78 with sinus rhythm. Patient was placed on pulse oximetry Medical decision rules: None Imaging studies: I informally interpreted the patient's DVT ultrasound does not show evidence of obvious clot with formal report to follow. HPI: Patient presents due to concern for right lower extremity infection. The patient reports that he had an episode of compartment syndrome which did not require surgery he said it was "too late." Stated that this happened in August but developed wounds in September. The patient states that he was [facility] [place] at the time in August because he had seizures difficulty with breathing as well as this right lower extremity issue concerning for compartment syndrome. Patient states that he had spontaneous drainage of the leg by the time he was transferred to the [facility] and did not require any surgery. Patient states he does not have feeling in the leg for the last 2 weeks. No headache or back pain. Patient states that he was clipping his toenails and believes that he cut the edge of the right fourth toe. Patient was seen in endocrine clinic and was referred here. He states that he has noticed some drainage coming from 2 separate wounds 1 from the back of the calf as well as 1 just proximal to the back of the foot. Patient denies any fevers or chills no nausea vomiting no chest pains or shortness of breath. Patient states he has noted some associated redness. Patient states that he has had a Watchman procedure for his prior A- fib but is not on current anticoagulation but is on aspirin and Plavix. PAST MEDICAL HISTORY: See Below PAST SURGICAL HISTORY: See Below SOCIAL HISTORY: See Below HOME MEDICATIONS: See Below ALLERGIES: See Below VITALS: See Below PHYSICAL EXAMINATION: GENERAL: NAD, non-toxic. EYE EXAM: Normal conjunctiva. PERRL, no anisocoria and EOM's grossly intact w/o pain. OROPHARYNX: Moist mucus membranes, grossly normal dentition. NECK: Trachea midline, no stridor. Supple, no nuchal rigidity, no adenopathy, non-tender. No signs of meningismus. FROM of the neck with good chin to chest and neck extension. LUNGS: Clear to auscultation. Normal chest wall mechanics. HEART: NSR, no MRG. ABDOMEN: Abdomen soft, non-tender, no masses, no rebound or guarding. BACK: No CVA TTP. SKIN: No rashes and no bruising. UPPER EXTREMITIES: Upper extremities are grossly normal. LOWER EXTREMITIES: Grossly normal, slight right greater than left lower extremity swelling with associated erythema which blanches no crepitus, 2 small wounds 1 to the posterior aspect of the right calf as well as just superior to the Achilles insertion. No obvious purulent drainage noted. Compartments are soft throughout. Good DP pulse on the right foot. NEURO EXAM: A&O x3, cranial nerves II-XII grossly intact, normal speech, moves all 4 extremities. Past Med/Surg History Problem List (Updated 11/19/24 @ 18:34 by Curtis Britton MD) Seizure disorder (Acute) Acidosis, lactic (Acute) Cellulitis of leg, right (Acute) Type 2 diabetes mellitus Atrial fibrillation (Acute 02/15/24) Right fibular fracture Cellulitis of right lower extremity Presbyopia of both eyes Epiretinal membrane (ERM) of left eye Ocular hypertension Secondary cataract of left eye with vision obscured Combined form of senile cataract of right eye Acute on chronic respiratory failure with hypoxia and hypercapnia Shortness of breath (Acute) Acute hypercapnic respiratory failure (Acute) COPD exacerbation Acute hypercapnic respiratory failure Seizure disorder Chronic respiratory failure with hypoxia Obesity Abnormal PFTs (pulmonary function tests) Abnormal chest CT Dyspnea (Acute) COPD (chronic obstructive pulmonary disease) CKD (chronic kidney disease), stage III Globus sensation Demyelinating disease Vision loss, bilateral Shortness of breath on exertion Peripheral edema Hypertension (Acute) Secondary adrenal insufficiency Pituitary hypogonadism Follows with endocrinology- Pituitary hypothyroidism Follows with endocrinology- Non-occlusive coronary artery disease Lumbar stenosis with neurogenic claudication Esophageal dysphagia Anxiety (Chronic) Mitral regurgitation Essential tremor Paresthesia Idiopathic polyneuropathy Lumbosacral radiculopathy Panhypopituitarism (Acute) Arachnoid cyst of posterior cranial fossa Obstructive sleep apnea (Acute) Mixed hyperlipidemia Ulcerative colitis Anemia (Acute) Bipolar disorder (10/11/22) Chronic migraine without aura or status migrainosus Uncontrolled type 2 diabetes mellitus with hyperglycemia Suspect low glycation index meaning his A1c is typically about 2 points lower than what his average glucose would suggest. Chronic low back pain Current use of proton pump inhibitor Severe obesity (BMI 35.0-35.9 with comorbidity) 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 Growth hormone deficiency Depression BPH with obstruction/lower urinary tract symptoms Medical History Toxic encephalopathy Chest pain Acute dyspnea Acute CHF Hypoglycemia Syncope and collapse Reason for loop recorder No recent issues since bed bound from femur fracture in Sep 2022 per patient Internal hemorrhoids Recurrent seizures Pituitary diabetes insipidus Follows with endocrinology- on DDAVP Spondylolysis, lumbar region Right lumbar radiculopathy HTN (hypertension) Bipolar disorder Adrenal insufficiency Pituitary adenoma Diabetes Bleeding (02/16/24) Acute blood loss anemia (02/19/24) Hyperactive gag reflex BRCA gene positive tested positive in Aug 2023 [place] > reason for up coming EGD Family history of BRCA gene mutation PTSD (post-traumatic stress disorder) Epidural lipomatosis Chronic left sacroiliac pain Benzodiazepine overdose none since Nov 2022 Presence of cardiac device Loop recorder > last checked fall 2022 Hx of fracture of foot Sep 2022- right > cast since removed > still gets painful Fracture of fibula, right, closed Cerebral concussion May 2023 during seizure > no further issues Orthostatic hypotension Pseudoseizures Sensorineural hearing loss of both ears Rectal bleeding on occasion History of COVID-19 10/2021 - fatigue; resolved. Mitral valve regurgitation follows with Dr. Phillips Verpepe Panhypopituitarism Lower extremity edema Elevated LFTs Bilateral hand pain Pituitary neoplasm Dx'ed in 2001- s/p surgical resection and XRT Repeat surgery in 2017 secondary to tumor regrowth at [facility] Kidney stones HX Prostate mass benign Bladder mass benign Obstructive sleep apnea of adult cpap > non compliant per pt Surgical History S/P TURP (status post transurethral resection of prostate) [place] [facility] [place] History of cardiac cath 07/2021 - no stents S/P epidural steroid injection History of lithotripsy Status post right foot surgery replaced 5th metatarsal--hardware in place History of bladder surgery remove mass History of prostate surgery remove mass History of colonoscopy History of esophagogastroduodenoscopy (EGD) History of tooth extraction History of wisdom tooth extraction History of brain surgery x2---2004 @ [facility], 2018 @ [facility]--for brain tumors > caused epilepsy Family History Grandmother (Paternal) Family history of diabetes mellitus Aunt Family history of diabetes mellitus Uncle Family history of diabetes mellitus Father Prostate cancer Heart disease Mother Cardiac disorder Grandmother (Maternal) Myocardial infarction Other Asthma Cancer Hypertension No family history of adverse response to anesthesia No family history of bleeding disorder Stroke Denies family history of Ovarian cancer Breast cancer Colorectal cancer Social History Smoking Status: Never smoker Tobacco Type: Smokeless Tobacco (Dip or Chew) Second Hand Exposure: No; Do You Dip or Chew Tobacco: No; Hx Alcohol Use: Yes Alcohol type: beer Alcohol Intake Frequency: Never Hx Substance Use: No Preferred Language: Yi Communication Ability: Effective Communication Ability Comment: Unable to obtain due to patient condition. Visual Impairment: Limited Hearing Ability: Normal Clinic Office Assistant Required: No Beliefs That Will Affect Care: None marital status: Single Current Living Situation: Spouse Current Living Situation Comment: lives w/ and daughter current occupational status: disabled How many Children do You have: 3 Feels Safe at Home: Yes Childhood Exposure to Second-Hand Smoke: Yes (parents smoked) Diet: regular Diet Comment: going to be starting low carb/low calorie diet. caffeine: No (1/2 20 oz bottle of mountain dew. ) during the past year weight has: increased > 10 lbs Physical Activity Frequency: Daily Physical Activity Frequency Comment: walking, 1.5 miles daily. Seatbelt Use: always Gender Identity: Male Assistive Devices: Oxygen - Continuous Allergies Allergies Allergy/AdvReac Type Severity Reaction Status Date / Time clindamycin Allergy Intermediate SWELLING Verified 11/19/24 16:36 Iodinated Contrast Media Allergy Intermediate face/eye Verified 11/19/24 16:36 swelling Quinolones Allergy Intermediate HIVES Verified 11/19/24 16:36 Home Meds Home Medications Medication Instructions Recorded Confirmed lithium carbonate 300 mg tablet 300 mg PO AMHS 06/04/22 11/19/24 duloxetine 30 mg capsule,delayed 0 mg PO HS 06/23/22 11/19/24 release mirtazapine 30 mg tablet (Remeron) 30 mg PO HS 06/23/22 11/19/24 blood sugar diagnostic (OneTouch 08/06/22 11/07/24 Verio test strips) duloxetine 60 mg capsule,delayed 0 mg PO QAM 11/09/22 11/19/24 release lorazepam 0.5 mg tablet 0.5 mg PO DAILY PRN Seizure 09/19/23 11/19/24 Activity ferrous sulfate 325 mg (65 mg 325 mg PO QAM 02/20/24 11/19/24 iron) tablet aspirin 81 mg tablet,delayed 81 mg PO QAM 04/06/24 11/19/24 release dutasteride 0.5 mg capsule 0.5 mg PO QAM 04/06/24 11/19/24 glucagon 3 mg/actuation nasal 3 mg intranasal ONCE PRN Severe 04/06/24 11/19/24 spray (Baqsimi) Hypoglycemia aripiprazole 5 mg tablet 5 mg PO DAILY 05/29/24 11/19/24 insulin glargine 100 unit/mL (3 12 unit subcut HS 07/19/24 11/19/24 mL) subcutaneous pen (Lantus Solostar U-100 Insulin) levetiracetam 1,000 mg tablet 1,000 mg PO Q12H 10/03/24 11/19/24 trazodone 100 mg tablet 100 mg PO HS 10/03/24 11/19/24 desmopressin 0.2 mg tablet 0.4 mg PO BID 11/19/24 11/19/24 divalproex 500 mg tablet,delayed 1,000 mg PO QAM 11/19/24 11/19/24 release hydrocodone 7.5 mg-acetaminophen 1 tab PO Q6H 11/19/24 11/19/24 325 mg tablet metoprolol succinate 25 mg 25 mg PO HS 11/19/24 11/19/24 tablet,extended release 24 hr oxybutynin chloride 5 mg 5 mg PO QAM 11/19/24 11/19/24 tablet,extended release 24 hr prazosin 5 mg capsule 5 mg PO HS 11/19/24 11/19/24 propranolol 120 mg capsule,24 120 mg PO HS 11/19/24 11/19/24 hr,extended release Previous Rx's Medication Instructions Recorded fluticasone propionate 50 1 spray intranasal HS PRN allergy 03/16/23 mcg/actuation nasal symptoms #16 grams spray,suspension (Flonase Allergy Relief) FreeStyle Rosalie 2 [place] (flash #1 ea 05/13/23 glucose scanning reader) rimegepant 75 mg disintegrating 75 mg PO DAILY PRN Migraine 09/14/23 tablet ([facility] ODT) Headache #8 tabs blood sugar diagnostic (WEPOWER EcoTouch #150 ea 11/22/23 Verio test strips) blood-glucose meter (WEPOWER EcoTouch #1 ea 11/22/23 Verio Reflect Meter) insulin syringe-needle U-100 1 mL #300 ea 11/22/23 30 gauge x 1/2" (BD Insulin Syringe Ultra-Fine) lancets 33 gauge (OneTouch Delica #150 ea 11/22/23 Plus Lancet) albuterol sulfate 90 mcg/actuation 2 inh inhalation Q6H PRN shortness 02/24/24 aerosol inhaler (Ventolin HFA) of breath or wheezing #6.7 grams metformin 1,000 mg tablet 1,000 mg PO BID #180 tabs 03/03/24 somatropin 5 mg/1.5 mL (3.3 mg/mL) 0.3 mg (0.09 mL) subcut QPM #2 03/13/24 subcutaneous pen injector syringes (Norditropin FlexPro) FreeStyle Rosalie 2 Sensor (flash #6 ea 05/02/24 glucose sensor) testosterone 2 pump topical PM #75 grams 05/04/24 clopidogrel 75 mg tablet 75 mg PO QPM #30 tabs 05/31/24 nystatin 100,000 unit/gram topical 1 applic topical BID #30 grams 06/19/24 cream ipratropium 0.5 mg-albuterol 3 mg 3 ml inhalation QID PRN wheezing 07/31/24 (2.5 mg base)/3 mL nebulization #90 mL soln nebulizers (Compact Compressor #1 ea 07/31/24 Nebulizer) Botox 200 unit injection See Rx Instructions IM .COMPLEX #1 09/18/24 (onabotulinumtoxinA) ea cholecalciferol (vitamin D3) 50 50 mcg PO QPM #90 caps 09/19/24 mcg (2,000 unit) capsule lacosamide 150 mg tablet 150 mg PO BID #60 tabs 09/19/24 rosuvastatin 20 mg tablet 20 mg PO QAM #90 tabs 09/19/24 pantoprazole 40 mg tablet,delayed 40 mg PO BID #60 tabs 09/21/24 release levothyroxine 200 mcg tablet 200 mcg PO QAM #30 tabs 10/22/24 pen needle, diabetic 32 gauge x #100 ea 10/23/24" (BD Vy 2nd Gen Pen Needle) hydrocortisone 10 mg tablet 10 mg PO UD #135 tabs 10/24/24 bumetanide 1 mg tablet 1 mg PO QAM #30 tabs 10/26/24 vitamin B complex (Vitamins B 1 cap PO QAM #30 caps 10/26/24 Complex capsule) Results & Data (ED) Vital Signs Vital Signs - 24 hr 11/19/24 09:25 11/19/24 11:28 11/19/24 13:00 Temperature 36.6 C Temperature Source Oral Pulse Rate 101 H Pulse Rate [Apical] 83 90 Respiratory Rate 18 18 16 Respiratory Effort / Characteristics Non-Labored Spontaneous Respiratory Depth Normal Respiratory Pattern Regular Blood Pressure 123/78 Blood Pressure [Left Arm] 134/92 157/83 H Blood Pressure Mean 93 Blood Pressure Mean [Left Arm] 106 107 Pulse Oximetry 95 99 92 Oxygen Delivery Method Room Air Room Air Room Air Sepsis Recent Fever Within 48 Hours No Sepsis New/Unexplained Change in Mental Status No Sepsis Action Taken by Nursing No Action Required Home Medications Current Medication List: was personally reviewed by me Laboratory Data Attestation: I reviewed the patient's lab results. 11/19/24 11:15 11/19/24 11:15 Lab Results 11/19/24 11/19/24 11/19/24 Range/Units 11:15 11:39 13:51 WBC 10.06 (4.8-10.8) K/ul RBC 3.87 L (4.70-6.10) M/uL Hgb 11.5 L (14.0-18.0) g/dl Hct 35.3 L (42.0-52.0) % MCV 91.2 (80.0-100.0) fL MCH 29.7 (25.0-34.0) pg MCHC 32.6 (32.0-36.0) g/dL RDW Std Deviation 50.1 H (36.4-46.3) fL RDW Coeff of Yanira 15.1 H (11.5-14.5) % Plt Count 191 (130-400) K/uL MPV 8.4 L (9.4-12.4) fL Immature Gran % (Auto) 4.4 % Neut % (Auto) 62.1 % Lymph % (Auto) 20.8 % [place] % (Auto) 10.6 % Eos % (Auto) 1.3 % Baso % (Auto) 0.8 % Neut # (Auto) 6.25 (1.40-6.50) K/uL Lymph # (Auto) 2.09 (1.20-3.40) K/uL [place] # (Auto) 1.07 H (0.11-0.59) K/uL Eos # (Auto) 0.13 (0.00-0.50) K/uL Baso # (Auto) 0.08 (0.00-0.20) K/uL Immature Gran # (Auto) 0.44 H (0.01-0.20) K/uL Absolute Nucleated RBC 0.02 (0.00-0.12) K/uL Nucleated RBC % (auto) 0.2 % PT 11.2 (9.0-12.0) Seconds INR 1.0 (0.9-1.1) Sodium 142 (136-145) mmol/L Potassium 3.6 (3.5-5.1) mmol/L Chloride 101 (98-107) mmol/L Carbon Dioxide 30 (21-32) mmol/L Anion Gap 11 (3-11) BUN 13 (6-23) mg/dl Creatinine 0.99 (0.6-1.4) mg/dl Est Cr Clr Drug Dosing 108.7 ml/min eGFR 89.41 BUN/Creatinine Ratio 13.1 (10-20) Glucose 114 H (70-99(Fasting)) mg/dl Lactate 5.0 H* (0.4-2.0) mmol/L Calcium 9.1 (8.6-10.3) mg/dl Total Bilirubin 0.3 (0.2-1.0) mg/dl AST 17 (13-39) U/L ALT 13 (7-52) U/L Alkaline Phosphatase 42 (34-104) U/L Total Protein 6.9 (6.0-8.3) gm/dl Albumin 4.5 (3.4-5.0) gm/dl Globulin 2.4 L (2.5-4.0) gm/dl Albumin/Globulin Ratio 1.9 (0.9-2) Procalcitonin 0.02 (0-0.5) ng/ml Nasal Screen MRSA (PCR) Negative (Negative) Administered Medications Piperacillin Sod/Tazobactam Sod (Zosyn) 4.5 gm in 100 mls @ 25 mls/hr IV Q8H [facility]; Protocol Stop: 11/26/24 17:59 Last Admin: 11/19/24 18:24 Dose: 25 mls/hr Documented By: DS Discontinued Medications Sodium Chloride (Nss) 1,000 mls @ 999 mls/hr IV .Q1H1M ONE Stop: 11/19/24 13:11 Last Infusion: 11/19/24 14:01 Dose: Infused Documented By: Admin: 11/19/24 12:36 Dose: 999 mls/hr Documented By: SAVANNAH Vancomycin HCl 2,750 mg/ (Sodium Chloride) 555 mls @ 200 mls/hr IV NOW ONE Stop: 11/19/24 14:57 Last Infusion: 11/19/24 17:00 Dose: Infused Documented By: Admin: 11/19/24 12:57 Dose: 200 mls/hr Documented By: SAVANNAH Piperacillin Sod/Tazobactam Sod (Zosyn) 4.5 gm in 100 mls @ 200 mls/hr IV NOW ONE; Protocol Stop: 11/19/24 12:40 Last Infusion: 11/19/24 13:09 Dose: Infused Documented By: Admin: 11/19/24 12:35 Dose: 200 mls/hr Documented By: SAVANNAH Sodium Chloride (Nss) 500 mls @ 999 mls/hr IV .Q31M ONE Stop: 11/19/24 15:02 Last Infusion: 11/19/24 17:00 Dose: Infused Documented By: Admin: 11/19/24 16:29 Dose: 999 mls/hr Documented By: TANMAY Imaging Data Radiologist's Impression: Venous Doppler Study 11/19/24 11:23 US venous doppler LE RT CLINICAL HISTORY: redness, swelling TECHNIQUE: Right lower extremity real-time compression venous ultrasound with Color Doppler imaging. Utilizing real-time ultrasonic imaging multiple real time high-resolution ultrasonic images with compression and noncompression maneuvers of the deep venous system in addition to color doppler imaging were performed from the common femoral vein through the proximal calf veins. COMPARISON: Comparison is made to right lower extremity Doppler 10/29/2024 FINDINGS/IMPRESSION: No deep venous thrombus, there is normal compressibility of the deep venous system from the common femoral vein through the proximal calf veins. No superficial venous thrombosis is identified. ACT 112: Negative or not required by law. Electronically signed by: David Ramirez M.D. 11/19/2024 12:34 PM Discharge Plan Visit Data Chief Complaint: Infection Stated Complaint: INFECTION IN FOOT- REFERRED BY DOCTOR ED Provider: Curtis Britton Discharge Problem: Cellulitis of leg, right, Acidosis, lactic, Obstructive sleep apnea, Atrial fibrillation, Seizure disorder Patient Disposition: Admitted As Inpatient Discharge Instructions Interventions: ED Discharge Assessment Last Done: 11/19/24 15:32 Discharge Problem: Atrial fibrillation Qualifiers: Atrial fibrillation type: unspecified Qualified Code(s): I48.91 - Unspecified atrial fibrillation
[2024-11-19] MEDS ORDERED: cefTRIAXone SODIUM 2,000 MG/50 ML BAG IV STA (11:23)
[2024-11-19 11:56] LABS: Basophils # (auto) 0.08 K/uL (0.00-0.20); Basophils % (auto) 0.8 %; Eosinophils # (auto) 0.13 K/uL (0.00-0.50); Eosinophils % (auto) 1.3 %; Hematocrit (blood only) 35.3 % (42.0-52.0); Hemoglobin 11.5 g/dl (14.0-18.0); Immature Granulocytes # (auto) 0.44 K/uL (0.01-0.20); Immature Granulocytes % (auto) 4.4 %; Lymphocytes # (auto) 2.09 K/uL (1.20-3.40); Lymphocytes % (auto) 20.8 %; Mean Corpuscular Hemoglobin 29.7 pg (25.0-34.0); Mean Corpuscular Hgb Conc 32.6 g/dL (32.0-36.0); Mean Corpuscular Volume 91.2 fL (80.0-100.0); Mean Platelet Volume 8.4 fL (9.4-12.4); Monocytes # (auto) 1.07 K/uL (0.11-0.59); Monocytes % (auto) 10.6 %; Neutrophils # (auto) 6.25 K/uL (1.40-6.50); Neutrophils % (auto) 62.1 %; Nucleated RBC # (auto) 0.02 K/uL (0.00-0.12); Nucleated RBC % (auto) 0.2 %; Platelet Count 191 K/uL (130-400); RDW Coefficient of Variation 15.1 % (11.5-14.5); RDW Standard Deviation 50.1 fL (36.4-46.3); Red Blood Count 3.87 M/uL (4.70-6.10); White Blood Count 10.06 K/ul (4.8-10.8)
[2024-11-19] MEDS ORDERED: VANCOMYCIN CONSULT ACTIVE PRN (12:11)
[2024-11-19 12:18] LABS: Albumin Globulin Ratio 1.9 (0.9-2); Albumin Level 4.5 gm/dl (3.4-5.0); BUN Creatinine Ratio 13.1 (10-20); Bilirubin,Total 0.3 mg/dl (0.2-1.0); Calcium 9.1 mg/dl (8.6-10.3); Creatinine Clr Calc Pharmacy 108.7 ml/min; Globulin 2.4 gm/dl (2.5-4.0); Potassium 3.6 mmol/L (3.5-5.1); Total Protein 6.9 gm/dl (6.0-8.3)
[2024-11-19 12:20] LABS: Prothrombin Time 11.2 Seconds (9.0-12.0)
[2024-11-19] MEDS: PIPERACILLIN/TAZOBACTAM 4.5 GM/100 ML BAG IV ONE (12:35)
--- NOTE | 2024-11-19 12:35 | Ultrasound Report ---
US venous doppler LE RT CLINICAL HISTORY: redness, swelling TECHNIQUE: Right lower extremity real-time compression venous ultrasound with Color Doppler imaging. Utilizing real-time ultrasonic imaging multiple real time high-resolution ultrasonic images with comp ression and noncompression maneuvers of the deep venous system in addition to color doppler imaging w ere performed from the common femoral vein through the proximal calf veins. COMPARISON: Comparison is made to right lower extremity Doppler 10/29/2024 FINDINGS/IMPRESSION: No deep venous thrombus, there is normal compressibility of the deep venous system from the common fe moral vein through the proximal calf veins. No superficial venous thrombosis is identified. ACT 112: Negative or not required by law. Electronically signed by: David Ramirez M.D. 11/19/2024 12:34 PM
[2024-11-19] MEDS: SODIUM CHLORIDE 0.9% 1,000 ML IV ONE (12:36)
[2024-11-19] MEDS: VANCOMYCIN HCL 2,750 MG in SODIUM CHLORIDE 0.9% 500 ML IV ONE (12:57)
--- NOTE | 2024-11-19 13:05 | History & Physical Report ---
Date of Service November 19, 2024 Assessment & Plan (1) Cellulitis of right lower extremity: Plan: patient with right LE cellulitis since August 2024; patient stated he had "compartment syndrome" and hospitalized with [facility] throughout August and September 2 wounds of posterior knee and distal Achilles tendon, along with fourth and fifth metatarsals that are actively bleeding Numbness x 2 weeks Questionable cellulitis however was started on vancomycin and Zosyn in ED - No purulent drainage, if MRSA swab negative will discontinue vancomycin - Continue Zosyn blood cultures pending Wound care every shift as per ordered protocol wound care consulted teds ordered Elevated lactate: 5.0 -> 1L NSS -> 3.8 - No associated leukocytosis, afebrile, VSS - does not meet criteria for SIRS at this time - Added UA and COVID/flu/RSV swab - promote oral hydration - will order additional 500 mL NSS bolus and repeat lactate (2) Right fibular fracture: Plan: 2/2 to fall from seizure in August R tib/fib XR 09/08 showed healed distal fibular fracture repeat XR 10/29 shows chronic fracture deformity of fibula likely contributing to edema with above Tylenol prn for pain however patient reports numbness Nonweightbearing to right LE consult ortho as patient following with PCP for this (3) Chronic respiratory failure with hypoxia: Plan: patient with history of CORINA on CPAP, COPD on chronic O2, HFpEF, recent hospitalization 10/26 with pneumonia currently non-hypoxic on room air Pro-Vincent negative Will order home continuous oxygen via nasal cannula, 3L CPAP at bedtime Continue Bumex 1 Mg teds, heart healthy, low-sodium diet Daily weight (4) Atrial fibrillation: Plan: previous history of afib s/p watchman procedure not anticoagulated given seizure history and high risk of brain bleed continue on aspirin, Plavix, metoprolol XL 25 Mg daily (5) Seizure disorder: Plan: continue Keppra, lacosamide, and Depakote Seizure precautions (6) Type 2 diabetes mellitus: Plan: Controlled on metformin and 12 units lantus HS at home - SSI with target BSG range 110-140mg/dL, CF 35, carb ratio 12 - continue home Lantus 12 U - T2DM diet - BSG ACHS if eating, q6h if npo (7) Panhypopituitarism: Plan: Follows with endocrinology outpatient Continue desmopressin 0.4 BID continue hydrocortisone 20 Mg every morning and 10 Mg q. afternoon Plan Chronic stable diagnoses: hypothyroidismcontinue levothyroxine Bipolar disordercontinue lithium, aripiprazole, trazodone, mirtazapine chronic back painTylenol as needed, continue duloxetine BPH - not currently in retention, bladder scan prn hld - continue statin anemia - continue iron supplement VTE ppx: SCDs + TEDS; defer chemical ppx due to hx of seizures and high bleeding risk Diet: T2dm, heart healthy, low-sodium Dispo: med/telemetry with elevated lactate Admission and Anticipated Discharge Date Admission Date: 11/19/24 History of Present Illness Chief Complaint: infection Primary Care Provider: Larry Amaral MD Patient is a 54-year-old male with a past medical history of A-fib s/p Watchman procedure, epilepsy, panhypopituitarism, hypothyroidism, DM, HFpEF, silicosis/COPD on chronic oxygen, anemia, hypertension, GERD, CAD/HLD, anxiety, depression. He presents today due to numbness of his right lower extremity. He stated that in August he was life flighted to [facility] due to compartment syndrome and status epilepticus needing intubation. He stated that by the time he got there from [facility], the surgeon stated "it was too late" because he had open wounds of his right lower extremity. He stated that he previously had pain around the wounds of his right lower extremity, but now for the past 2 weeks his entire right lower extremity has been numb. He also stated it looks a different color than the left. He has had bleeding from his fourth and fifth right toes. He has home health nurses that have been helping to take care of h im who stated he should come in today. He was using a walker which has transition to cane and now currently crutches. Although he states he is supposed to be nonweightbearing still. He stated he has been using compression stockings on his bilateral lower extremity, he believes he will need compression stockings of his right lower extremity for about 2 years. He also stated that during one of his seizures he hit his right leg resulting in a chronic ankle fracture. He has been following with his PCP for the ankle fracture and possible compartment syndrome. He has a history of epilepsy and his last seizure was approximately 2 weeks ago. He took all of his home medications today. He does not take anticoagulation with his A-fib due to the high risk of brain bleed with his seizures, he has a Watchman procedure. Patient denies fever, chills, headache, dizziness, lightheadedness, cough, dyspnea, dyspnea on exertion, chest pain, abdominal pain. He stated that he lives at home with his and stepchildren who help to take care of him. He stated he has a history of silicosis/COPD and is on chronic oxygen at 3 L, he also uses BiPAP overnight for CORINA. He does have a history of DVT approximately 14 years ago. He wishes to be DNR/DNI; he was very upset about being intubated with previous hospitalizations at other facilities. He would not want intubation under any circumstances. Allergies Allergy/AdvReac Type Severity Reaction Status Date / Time clindamycin Allergy Intermediate SWELLING Verified 11/19/24 16:36 Iodinated Contrast Media Allergy Intermediate face/eye Verified 11/19/24 16:36 swelling Quinolones Allergy Intermediate HIVES Verified 11/19/24 16:36 Home Medications Medication Instructions Recorded Confirmed Type lithium carbonate 300 mg tablet 300 mg PO AMHS 06/04/22 11/07/24 History duloxetine 30 mg capsule,delayed 30 mg PO HS 06/23/22 11/07/24 History release mirtazapine 30 mg tablet (Remeron) 30 mg PO HS 06/23/22 11/07/24 History blood sugar diagnostic (OneTouch 08/06/22 11/07/24 History Verio test strips) duloxetine 60 mg capsule,delayed 60 mg PO QAM 11/09/22 11/07/24 History release prazosin 5 mg capsule (Minipress) 5 mg PO HS 11/09/22 11/07/24 History fluticasone propionate 50 1 spray intranasal HS PRN allergy 03/16/23 11/07/24 Rx mcg/actuation nasal symptoms #16 grams spray,suspension (Flonase Allergy Relief) FreeStyle Rosalie 2 [place] (flash #1 ea 05/13/23 11/07/24 Rx glucose scanning reader) rimegepant 75 mg disintegrating 75 mg PO DAILY PRN Migraine 09/14/23 11/07/24 Rx tablet (Nurtec ODT) Headache #8 tabs lorazepam 0.5 mg tablet 0.5 mg PO DAILY PRN Seizure 09/19/23 11/07/24 History Activity blood sugar diagnostic (OneTouch #150 ea 11/22/23 11/07/24 Rx Verio test strips) blood-glucose meter (OneTouch #1 ea 11/22/23 11/07/24 Rx Verio Reflect Meter) insulin syringe-needle U-100 1 mL #300 ea 11/22/23 11/07/24 Rx 30 gauge x 1/2" (BD Insulin Syringe Ultra-Fine) lancets 33 gauge (OneTouch Delica #150 ea 11/22/23 11/07/24 Rx Plus Lancet) ferrous sulfate 325 mg (65 mg 325 mg PO QAM 02/20/24 11/07/24 History iron) tablet albuterol sulfate 90 mcg/actuation 2 inh inhalation Q6H PRN shortness 02/24/24 11/07/24 Rx aerosol inhaler (Ventolin HFA) of breath or wheezing #6.7 grams metformin 1,000 mg tablet 1,000 mg PO BID #180 tabs 03/03/24 11/19/24 Rx somatropin 5 mg/1.5 mL (3.3 mg/mL) 0.3 mg (0.09 mL) subcut QPM #2 03/13/24 11/07/24 Rx subcutaneous pen injector syringes (Norditropin FlexPro) aspirin 81 mg tablet,delayed 81 mg PO QAM 04/06/24 11/19/24 History release dutasteride 0.5 mg capsule 0.5 mg PO QAM 04/06/24 11/07/24 History glucagon 3 mg/actuation nasal 3 mg intranasal ONCE PRN Severe 04/06/24 11/07/24 History spray (Baqsimi) Hypoglycemia FreeStyle Rosalie 2 Sensor (flash #6 ea 05/02/24 11/07/24 Rx glucose sensor) testosterone 2 pump topical PM #75 grams 05/04/24 11/07/24 Rx aripiprazole 5 mg tablet 5 mg PO DAILY 05/29/24 11/07/24 History clopidogrel 75 mg tablet 75 mg PO QPM #30 tabs 05/31/24 11/19/24 Rx nystatin 100,000 unit/gram topical 1 applic topical BID #30 grams 06/19/24 11/07/24 Rx cream insulin glargine 100 unit/mL (3 12 unit subcut HS 07/19/24 11/19/24 History mL) subcutaneous pen (Lantus Solostar U-100 Insulin) ipratropium 0.5 mg-albuterol 3 mg 3 ml inhalation QID PRN wheezing 07/31/24 11/07/24 Rx (2.5 mg base)/3 mL nebulization #90 mL soln nebulizers (Compact Compressor #1 ea 07/31/24 11/07/24 Rx Nebulizer) metoprolol succinate 25 mg 25 mg PO DAILY #30 tabs 08/29/24 11/07/24 Rx tablet,extended release 24 hr Botox 200 unit injection See Rx Instructions IM .COMPLEX #1 09/18/24 11/07/24 Rx (onabotulinumtoxinA) ea cholecalciferol (vitamin D3) 50 50 mcg PO QPM #90 caps 09/19/24 11/07/24 Rx mcg (2,000 unit) capsule lacosamide 150 mg tablet 150 mg PO BID #60 tabs 09/19/24 11/07/24 Rx rosuvastatin 20 mg tablet 20 mg PO QAM #90 tabs 09/19/24 11/07/24 Rx pantoprazole 40 mg tablet,delayed 40 mg PO BID #60 tabs 09/21/24 11/07/24 Rx release levetiracetam 1,000 mg tablet 1,000 mg PO Q12H 10/03/24 11/07/24 History semaglutide (weight loss) 0.25 0.25 mg subcut Q7D 10/03/24 11/07/24 History mg/0.5 mL subcutaneous pen injector (Gerardo) trazodone 100 mg tablet 100 mg PO .qhs 10/03/24 11/07/24 History divalproex 250 mg tablet,delayed 1,000 mg PO DAILY 10/05/24 11/07/24 History release levothyroxine 200 mcg tablet 200 mcg PO QAM #30 tabs 10/22/24 11/07/24 Rx pen needle, diabetic 32 gauge x #100 ea 10/23/24 11/07/24 Rx 5/32" (BD Vy 2nd Gen Pen Needle) desmopressin 0.1 mg tablet (DDAVP) 0.4 mg (4 x 0.1 mg) PO BID #240 10/24/24 11/07/24 Rx tabs hydrocortisone 10 mg tablet 10 mg PO UD #135 tabs 10/24/24 11/07/24 Rx amoxicillin 875 mg-potassium 1 tab PO BIDM #10 tabs 10/26/24 11/07/24 Rx clavulanate 125 mg tablet bumetanide 1 mg tablet 1 mg PO QAM #30 tabs 10/26/24 11/07/24 Rx vitamin B complex (Vitamins B 1 cap PO QAM #30 caps 10/26/24 11/07/24 Rx Complex capsule) oxybutynin chloride 5 mg See Rx Instructions .Route 11/16/24 Rx tablet,extended release 24 hr .COMPLEX #28 tabs Past Med/Surg History Problem List (Updated 11/19/24 @ 14:17 by Amie Resendiz PA-C) Type 2 diabetes mellitus Atrial fibrillation (02/15/24) Right fibular fracture Cellulitis of right lower extremity Presbyopia of both eyes Epiretinal membrane (ERM) of left eye Ocular hypertension Secondary cataract of left eye with vision obscured Combined form of senile cataract of right eye Acute on chronic respiratory failure with hypoxia and hypercapnia Shortness of breath (Acute) Acute hypercapnic respiratory failure (Acute) COPD exacerbation Acute hypercapnic respiratory failure Seizure disorder Chronic respiratory failure with hypoxia Obesity Abnormal PFTs (pulmonary function tests) Abnormal chest CT Dyspnea (Acute) COPD (chronic obstructive pulmonary disease) CKD (chronic kidney disease), stage III Globus sensation Demyelinating disease Vision loss, bilateral Shortness of breath on exertion Peripheral edema Hypertension (Acute) Secondary adrenal insufficiency Pituitary hypogonadism Follows with endocrinology- Pituitary hypothyroidism Follows with endocrinology- Non-occlusive coronary artery disease Lumbar stenosis with neurogenic claudication Esophageal dysphagia Anxiety (Chronic) Mitral regurgitation Essential tremor Paresthesia Idiopathic polyneuropathy Lumbosacral radiculopathy Panhypopituitarism (Acute) Arachnoid cyst of posterior cranial fossa Obstructive sleep apnea Mixed hyperlipidemia Ulcerative colitis Anemia (Acute) Bipolar disorder (10/11/22) Chronic migraine without aura or status migrainosus Uncontrolled type 2 diabetes mellitus with hyperglycemia Suspect low glycation index meaning his A1c is typically about 2 points lower than what his average glucose would suggest. Chronic low back pain Current use of proton pump inhibitor Severe obesity (BMI 35.0-35.9 with comorbidity) 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 Growth hormone deficiency Depression BPH with obstruction/lower urinary tract symptoms Medical History Toxic encephalopathy Chest pain Acute dyspnea Acute CHF Hypoglycemia Syncope and collapse Internal hemorrhoids Atrial fibrillation (02/15/24) Recurrent seizures Pituitary diabetes insipidus Spondylolysis, lumbar region Right lumbar radiculopathy HTN (hypertension) Bipolar disorder Adrenal insufficiency Pituitary adenoma Diabetes Bleeding (02/16/24) Acute blood loss anemia (02/19/24) Hyperactive gag reflex BRCA gene positive Family history of BRCA gene mutation PTSD (post-traumatic stress disorder) Epidural lipomatosis Chronic left sacroiliac pain Benzodiazepine overdose Presence of cardiac device Hx of fracture of foot Fracture of fibula, right, closed Cerebral concussion Orthostatic hypotension Pseudoseizures Sensorineural hearing loss of both ears Rectal bleeding History of COVID-19 Mitral valve regurgitation Vertigo Panhypopituitarism Lower extremity edema Elevated LFTs Bilateral hand pain Pituitary neoplasm Kidney stones Prostate mass Bladder mass Obstructive sleep apnea of adult Surgical History S/P TURP (status post transurethral resection of prostate) History of lumbar fusion History of cardiac cath S/P epidural steroid injection History of lithotripsy Status post right foot surgery History of bladder surgery History of prostate surgery History of colonoscopy History of esophagogastroduodenoscopy (EGD) History of tooth extraction History of wisdom tooth extraction History of brain surgery Family History Grandmother (Paternal) Family history of diabetes mellitus Aunt Family history of diabetes mellitus Uncle Family history of diabetes mellitus Father Prostate cancer Heart disease Mother Cardiac disorder Grandmother (Maternal) Myocardial infarction Other Asthma Cancer Hypertension No family history of adverse response to anesthesia No family history of bleeding disorder Stroke Denies family history of Ovarian cancer Breast cancer Colorectal cancer Social History Smoking Status: Never smoker Tobacco Type: Smokeless Tobacco (Dip or Chew) Second Hand Exposure: No; Do You Dip or Chew Tobacco: No; Hx Alcohol Use: Yes Alcohol type: beer Alcohol Intake Frequency: Never Hx Substance Use: No Preferred Language: Moldovan Communication Ability: Effective Communication Ability Comment: Unable to obtain due to patient condition. Visual Impairment: Limited Hearing Ability: Normal User Experience Manager Required: No Beliefs That Will Affect Care: None marital status: Single Current Living Situation: Spouse Current Living Situation Comment: lives w/ and daughter current occupational status: disabled How many Children do You have: 3 Feels Safe at Home: Yes Childhood Exposure to Second-Hand Smoke: Yes (parents smoked) Diet: regular Diet Comment: going to be starting low carb/low calorie diet. caffeine: No (1/2 20 oz bottle of mountain dew. ) during the past year weight has: increased > 10 lbs Physical Activity Frequency: Daily Physical Activity Frequency Comment: walking, 1.5 miles daily. Seatbelt Use: always Gender Identity: Male Assistive Devices: Oxygen - Continuous Review of Systems Review of Systems: see HPI Physical Exam Physical Exam: The patient is awake, alert and oriented 3, well developed and well nourished, normocephalic and atraumatic, in no acute distress. Non-toxic appearing. HEENT- EOMI, mucous membranes moist. Hearing grossly intact. Heart-normal S1 and S2. No murmurs, rubs or gallops. Lungs-clear bilaterally, no respiratory distress, no accessory muscle use. Abdomen-normal bowel sounds and soft. No ascites noted. Non-tender. Extremities- Right LE with wounds to posterior knee and along Achilles tendon. Bleeding from right fourth and fifth metatarsals. Rheumatologic-normal range of motion. Psychiatric-normal affect. Results & Data Results & Data Vital Signs (Past 12 Hours) Vital Signs Temp Pulse Pulse Resp BP BP Pulse Ox 11/19/24 11:28 83 18 134/92 99 11/19/24 09:25 36.6 C 101 H 18 123/78 95 O2 Del Method 11/19/24 11:28 Room Air 11/19/24 09:25 Room Air Laboratory Results Reviewed CBC, PT/INR, CMP, lactate, Pro-Vincent Diagnostic Findings reviewed venous Doppler Medications Administered ED: 1L NSS, vancomycin, Zosyn ECG Additional Comments: ordered Code Status & VTE Plan Code Status dnr/dni VTE Prophylaxis Plan VTE Prophylaxis will be ordered: Yes Supervising Physician Co-Signing Physician Notes Patient was seen and examined independently I discussed the case with Amie CARRILLO I reviewed pertinent past medical social family history and also the plan of care and agree with the plan of care. 54-year-old male who presents with discomfort and bleeding to his right foot. Says he is lost sensation he states approximately 2 months ago he was sent to a tertiary center after a seizure with concern for compartment syndrome from trauma reportedly since that time he has had changes to his foot and currently has sustained an injury with bleeding from his right fourth and third toe he also talks about having a chronic ankle fracture His seizure history is with poorly controlled seizures with his last seizure being 2 weeks ago He has a history of A-fib but he had a Watchman procedure due to continued traumatic issues from his poorly controlled seizure disorder Examination finds to be in no particular distress he was bleeding from his right foot he does not have good sensation there there was an abrasion on the distal fourth and fifth toe there is a laceration in the webspace between the third and fourth toe Bleeding controlled at the sites with pressure Local wound care and control of bleeding with pressure there is no suturable areas concern for previous neurovascular injury from compartment syndrome Chronic nonhealed fibular fracture with orthopedic consultation Chronic seizure disorder continue divalproex 1000, Keppra 1000 acute, lacosamide 150 twice daily Hypogonadism on replacement Any exceptions will be noted below PG Care Time/CCT Total # of Minutes Spent Total Time Spent with Patient: Total time spent is greater than 50% in coordination of care (as documented) at patient's floor/unit and/or counseling patient: Coding Level of Care Code 32560 INT INP/OBS CARE 3MIN Diagnoses Cellulitis of right lower extremity L03.115 Right fibular fracture S82.401A Chronic respiratory failure with hypoxia J96.11 Atrial fibrillation I48.91 Seizure disorder G40.909 Type 2 diabetes mellitus E11.9 Panhypopituitarism E23.0
[2024-11-19] MEDS ORDERED: GLUCOSE 40% GEL 15 GM TUBE PO PRN (15:31)
[2024-11-19] MEDS ORDERED: DOCUSATE SODIUM 100 MG CAP PO PRN (15:31)
[2024-11-19] MEDS ORDERED: CARBOHYDRATES FOR HYPOGLYCEMIA PO PRN (15:31)
[2024-11-19] MEDS ORDERED: DEXTROSE 50% 50 ML SYRINGE IV PRN (15:31)
[2024-11-19] MEDS ORDERED: GLUCAGON FOR INJ 1 MG VIAL SQ PRN (15:31)
[2024-11-19] MEDS ORDERED: GLUCOSE 10 TAB/TUBE PO PRN (15:31)
[2024-11-19] MEDS ORDERED: ACETAMINOPHEN 325 MG TAB PO PRN (15:31)
[2024-11-19] MEDS: SODIUM CHLORIDE 0.9% 500 ML IV ONE (16:29)
[2024-11-19 16:44] LABS: Influenza A virus by PCR Negative (Neg); Influenza B virus by PCR Negative (Neg); RSV by PCR Negative (Neg); SARS CoV2 RNA(COVID-19) Ceph NEGATIVE (Negative)
[2024-11-19] MEDS ORDERED: LORazepam 0.5 MG TAB PO PRN (16:55)
[2024-11-19 17:15] LABS: Appearance Urine Clear (Clear); Bacteria Urine Automated None Seen (None Seen); Bilirubin Urine Negative (Negative); Blood Urine 2+ (Negative); Cast Urine Automated 0-2 /lpf (0-2); Color Urine Yellow; Epithelial Cell Urine Auto 0-2 /hpf (0-2); Glucose Urine UA Trace (Negative); Ketones Urine 1+ (Negative); Leukocyte Esterase Urine Negative (Negative); Nitrite Urine Negative (Negative); Protein Urine 2+ (Negative); Specific Gravity Urine 1.035 (1.000-1.030); Urobilinogen Urine Negative (Negative); WBC Urine Automated 0-5 /hpf (0-5); pH Urine 5.5 (4.5-7.5)
[2024-11-19] MEDS: PIPERACILLIN/TAZOBACTAM 4.5 GM/100 ML BAG IV SCH (18:24)
[2024-11-19] MEDS: INSULIN ASPART PER UNIT CHARGE SC SCH (18:50)
--- NOTE | 2024-11-19 20:15 | Orthopedic Consultation ---
Date of Consultation November 19, 2024 Assessment & Plan (1) Closed fracture of right fibula with malunion: (2) Seizure disorder: (3) Laceration of toe of right foot: (4) Type 2 diabetes mellitus: (5) Atrial fibrillation: (6) COPD exacerbation: (7) Obesity: (8) CKD (chronic kidney disease), stage III: (9) Peripheral edema: (10) Paresthesia: (11) Bipolar disorder: Plan This is a quite medically complex 54-year-old gentleman who presents to the hospital primarily for right foot numbness. The patient has a long extensive medical history which is being managed by the medical team. With regards to his orthopedic history, it is significant for a right Gao B fibula fracture that was managed nonoperatively which has gone on to malunion. His fibula is short. He sustained this injury during a seizure which also resulted apparently in compartment syndrome of his right lower extremity that did not go on to require any surgical intervention when he was transferred to an outside hospital. Per the patient, the surgeon at that hospital told him it was "too late to do anything". Despite the fact that the patient had a diagnosis of compartment syndrome in the past, he does not appear to have lost any significant muscle tone in his right lower extremity. He does have some weakness but he notes that the weakness has gotten significantly worse over the last 2 weeks while his foot has been numb, and I would suspect that the weakness would have been present from the outset of his compartment syndrome diagnosis. At current, the patient demonstrates no signs or symptoms consistent with acute compartment syndrome. He does not demonstrate any pain with passive range of motion of his ankle or his toes. Patient has diminished sensation in the foot and this has been the case for the last 2 weeks and this is the reason for his presentation today. He does not have any pallor of his lower extremity and his foot is warm and well-perfused. With regards the patient's history of a distal fibula fracture, this is healed, and although it his fibula is short and he has a malunion, this does not require acute orthopedic intervention. If the patient were to desire orthopedic intervention in the future, he would need to have his lower extremity swelling better controlled to help decrease the risk of infection from this type of surgery. Much more important for the patient at this current juncture is the management of these chronic wounds in his lower extremity. The patient notes that these wounds developed from time to time over the last two years due to the edema in his lower extremities that has been present since his seizure episode a few years ago that required intubation, transferred to [place]. I recommend wound care consult for all of the patient's right lower extremity wounds. No plans for acute orthopedic intervention for these. With regards to the workup for his right lower extremity numbness, consider EMG and nerve conduction studies. Medical team may also consider a consultation to the neurology team as the patient has a history of intracranial tumor status post 2 resections, it is entirely possible that the numbness in his foot is not coming from his foot rather from a more central process. On my current evalu ation, I am unable to definitively define a cause of this numbness. It is also possible that it is related to nerve damage from his previous compartment syndrome, but it is unlikely that this would present almost 2 years later. 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 He presented to the hospital today due to numbness of his right lower extremity that he has had for a few weeks. Patient notes that he has always had numbness in his toes but for the last 2 weeks it has been present in his foot as well. He notes that his troubles stated in August when he was life flighted to [place] due to compartment syndrome and multiple seizures intubation. He notes that he got compartment syndrome from his ankle fracture which was sustained during his seizures. He relates to me that he never had is compartments released once he got to [place] because the surgeon stated "it was too late". Since that time he has been dealing with swelling in his legs that have caused some skin irritation and wounds. most recent wounds include one behind his knee, one over his achilles, and wound on his 4th and 5th toes. He stated that he lives at home with his and stepchildren who help to take care of him. He stated he has a history of silicosis/COPD and is on chronic oxygen at 3 L, he also uses BiPAP overnight for CORINA. He does have a history of DVT approximately 14 years ago. At current, the patient denies any pain. He notes that his primary concern is the numbness in his foot. He states that his ankle and toes have been weak since his diagnosis of compartment syndrome, but they got weaker over the last 2 weeks. Allergies Allergy/AdvReac Type Severity Reaction Status Date / Time clindamycin Allergy Intermediate SWELLING Verified 11/19/24 16:36 Iodinated Contrast Media Allergy Intermediate face/eye Verified 11/19/24 16:36 swelling Quinolones Allergy Intermediate HIVES Verified 11/19/24 16:36 Home Medications Medication Instructions Recorded Confirmed Type lithium carbonate 300 mg tablet 300 mg PO AMHS 06/04/22 11/19/24 History duloxetine 30 mg capsule,delayed 0 mg PO HS 06/23/22 11/19/24 History release mirtazapine 30 mg tablet (Remeron) 30 mg PO HS 06/23/22 11/19/24 History blood sugar diagnostic (OneTouch 08/06/22 11/07/24 History Verio test strips) duloxetine 60 mg capsule,delayed 0 mg PO QAM 11/09/22 11/19/24 History release fluticasone propionate 50 1 spray intranasal HS PRN allergy 03/16/23 11/19/24 Rx mcg/actuation nasal symptoms #16 grams spray,suspension (Flonase Allergy Relief) FreeStyle Rosalie 2 Curtis (flash #1 ea 05/13/23 11/07/24 Rx glucose scanning reader) rimegepant 75 mg disintegrating 75 mg PO DAILY PRN Migraine 09/14/23 11/19/24 Rx tablet (Nurtec ODT) Headache #8 tabs lorazepam 0.5 mg tablet 0.5 mg PO DAILY PRN Seizure 09/19/23 11/19/24 History Activity blood sugar diagnostic (DwollaTouch #150 ea 11/22/23 11/07/24 Rx Verio test strips) blood-glucose meter (DwollaTouch #1 ea 11/22/23 11/07/24 Rx Verio Reflect Meter) insulin syringe-needle U-100 1 mL #300 ea 11/22/23 11/07/24 Rx 30 gauge x 1/2" (BD Insulin Syringe Ultra-Fine) lancets 33 gauge (DwollaTouch Delserjio #150 ea 11/22/23 11/07/24 Rx Plus Lancet) ferrous sulfate 325 mg (65 mg 325 mg PO QAM 02/20/24 11/19/24 History iron) tablet albuterol sulfate 90 mcg/actuation 2 inh inhalation Q6H PRN shortness 02/24/24 11/19/24 Rx aerosol inhaler (Ventolin HFA) of breath or wheezing #6.7 grams metformin 1,000 mg tablet 1,000 mg PO BID #180 tabs 03/03/24 11/19/24 Rx somatropin 5 mg/1.5 mL (3.3 mg/mL) 0.3 mg (0.09 mL) subcut QPM #2 03/13/24 11/19/24 Rx subcutaneous pen injector syringes (Norditropin FlexPro) aspirin 81 mg tablet,delayed 81 mg PO QAM 04/06/24 11/19/24 History release dutasteride 0.5 mg capsule 0.5 mg PO QAM 04/06/24 11/19/24 History glucagon 3 mg/actuation nasal 3 mg intranasal ONCE PRN Severe 04/06/24 11/19/24 History spray (Baqsimi) Hypoglycemia FreeStyle Rosalie 2 Sensor (flash #6 ea 05/02/24 11/07/24 Rx glucose sensor) testosterone 2 pump topical PM #75 grams 05/04/24 11/19/24 Rx aripiprazole 5 mg tablet 5 mg PO DAILY 05/29/24 11/19/24 History clopidogrel 75 mg tablet 75 mg PO QPM #30 tabs 05/31/24 11/19/24 Rx nystatin 100,000 unit/gram topical 1 applic topical BID #30 grams 06/19/24 11/19/24 Rx cream insulin glargine 100 unit/mL (3 12 unit subcut HS 07/19/24 11/19/24 History mL) subcutaneous pen (Lantus Solostar U-100 Insulin) ipratropium 0.5 mg-albuterol 3 mg 3 ml inhalation QID PRN wheezing 07/31/24 11/19/24 Rx (2.5 mg base)/3 mL nebulization #90 mL soln nebulizers (Compact Compressor #1 ea 07/31/24 11/07/24 Rx Nebulizer) Botox 200 unit injection See Rx Instructions IM .COMPLEX #1 09/18/24 11/19/24 Rx (onabotulinumtoxinA) ea cholecalciferol (vitamin D3) 50 50 mcg PO QPM #90 caps 09/19/24 11/19/24 Rx mcg (2,000 unit) capsule lacosamide 150 mg tablet 150 mg PO BID #60 tabs 09/19/24 11/19/24 Rx rosuvastatin 20 mg tablet 20 mg PO QAM #90 tabs 09/19/24 11/19/24 Rx pantoprazole 40 mg tablet,delayed 40 mg PO BID #60 tabs 09/21/24 11/19/24 Rx release levetiracetam 1,000 mg tablet 1,000 mg PO Q12H 10/03/24 11/19/24 History trazodone 100 mg tablet 100 mg PO HS 10/03/24 11/19/24 History levothyroxine 200 mcg tablet 200 mcg PO QAM #30 tabs 10/22/24 11/19/24 Rx pen needle, diabetic 32 gauge x #100 ea 10/23/24 11/07/24 Rx 5/32" (BD Vy 2nd Gen Pen Needle) hydrocortisone 10 mg tablet 10 mg PO UD #135 tabs 10/24/24 11/19/24 Rx bumetanide 1 mg tablet 1 mg PO QAM #30 tabs 10/26/24 11/19/24 Rx vitamin B complex (Vitamins B 1 cap PO QAM #30 caps 10/26/24 11/19/24 Rx Complex capsule) desmopressin 0.2 mg tablet 0.4 mg PO BID 11/19/24 11/19/24 History divalproex 500 mg tablet,delayed 1,000 mg PO QAM 11/19/24 11/19/24 History release hydrocodone 7.5 mg-acetaminophen 1 tab PO Q6H 11/19/24 11/19/24 History 325 mg tablet metoprolol succinate 25 mg 25 mg PO HS 11/19/24 11/19/24 History tablet,extended release 24 hr oxybutynin chloride 5 mg 5 mg PO QAM 11/19/24 11/19/24 History tablet,extended release 24 hr prazosin 5 mg capsule 5 mg PO HS 11/19/24 11/19/24 History propranolol 120 mg capsule,24 120 mg PO HS 11/19/24 11/19/24 History hr,extended release Patient History Medical History Toxic encephalopathy Chest pain Acute dyspnea Acute CHF Hypoglycemia Syncope and collapse Reason for loop recorder No recent issues since bed bound from femur fracture in Sep 2022 per patient Internal hemorrhoids Recurrent seizures Pituitary diabetes insipidus Follows with endocrinology- on DDAVP Spondylolysis, lumbar region Right lumbar radiculopathy HTN (hypertension) Bipolar disorder Adrenal insufficiency Pituitary adenoma Diabetes Bleeding (02/16/24) Acute blood loss anemia (02/19/24) Hyperactive gag reflex BRCA gene positive tested positive in Aug 2023 [place] > reason for up coming EGD Family history of BRCA gene mutation PTSD (post-traumatic stress disorder) Epidural lipomatosis Chronic left sacroiliac pain Benzodiazepine overdose none since Nov 2022 Presence of cardiac device Loop recorder > last checked fall 2022 Hx of fracture of foot Sep 2022- right > cast since removed > still gets painful Fracture of fibula, right, closed Cerebral concussion May 2023 during seizure > no further issues Orthostatic hypotension Pseudoseizures Sensorineural hearing loss of both ears Rectal bleeding on occasion History of COVID-19 10/2021 - fatigue; resolved. Mitral valve regurgitation follows with Dr. Phillips Vertigo Panhypopituitarism Lower extremity edema Elevated LFTs Bilateral hand pain Pituitary neoplasm Dx'ed in 2001- s/p surgical resection and XRT Repeat surgery in 2018 secondary to tumor regrowth at [facility] Kidney stones HX Prostate mass benign Bladder mass benign Obstructive sleep apnea of adult cpap > non compliant per pt Surgical History S/P TURP (status post transurethral resection of prostate) [place] [facility] [place] History of cardiac cath 07/2021 - no stents S/P epidural steroid injection History of lithotripsy Status post right foot surgery replaced 5th metatarsal--hardware in place History of bladder surgery remove mass History of prostate surgery remove mass History of colonoscopy History of esophagogastroduodenoscopy (EGD) History of tooth extraction History of wisdom tooth extraction [place] of [place] [facility] [place] [facility]--for brain tumors > caused epilepsy Family History Grandmother (Paternal) Family history of diabetes mellitus Aunt Family history of diabetes mellitus Uncle Family history of diabetes mellitus Father Prostate cancer Heart disease Mother Cardiac disorder Grandmother (Maternal) Myocardial infarction Other Asthma Cancer Hypertension No family history of adverse response to anesthesia No family history of bleeding disorder Stroke Denies family history of Ovarian cancer Breast cancer Colorectal cancer Social History Smoking Status: Never smoker Tobacco Type: Smokeless Tobacco (Dip or Chew) Second Hand Exposure: No; Do You Dip or Chew Tobacco: No; Hx Alcohol Use: Yes Alcohol type: beer Alcohol Intake Frequency: Never Hx Substance Use: No Preferred Language: French Communication Ability: Effective Communication Ability Comment: Unable to obtain due to patient condition. Visual Impairment: Limited Hearing Ability: Normal Optical Glass Inspector Required: No Beliefs That Will Affect Care: None marital status: Single Current Living Situation: Spouse Current Living Situation Comment: lives w/ and daughter current occupational status: disabled How many Children do You have: 3 Feels Safe at Home: Yes Childhood Exposure to Second-Hand Smoke: Yes (parents smoked) Diet: regular Diet Comment: going to be starting low carb/low calorie diet. caffeine: No (1/2 20 oz bottle of mountain dew. ) during the past year weight has: increased > 10 lbs Physical Activity Frequency: Daily Physical Activity Frequency Comment: walking, 1.5 miles daily. Seatbelt Use: always Gender Identity: Male Assistive Devices: Oxygen - Continuous Review of Systems Review of Systems: All systems reviewed & are unremarkable except as noted in HPI & below Physical Exam Physical Exam: On physical examination of the patient's right lower extremity, he has a superficial wound On theposterior aspect of his knee with some scabbing noted. He also has a superficial wound over his Achilles in the mid substance with some scabbing as well. Both these wounds are quite superficial and do not expose any deep fascia. There is a laceration on the tip of his fourth digit which is quite superficial in nature that is fresh and actively bleeding. Additionally, there is a small laceration on the tip of his fifth digit that is also currently bleeding. With regards to muscle function of his right foot, he demonstrates active dorsiflexion and plantarflexion but this is 3/5 in strength he also demonstrates active EHL and FHL function but additionally these are 3/5 in strength. He has diminished sensation in a stocking-like distribution in the foot. The patient has no pain with passive range of motion of his ankle. He has soft and easily compressible compartments in his lower extremity. His sensation is diminished in the foot and has been for 2 weeks per the patient. His foot is warm and well-perfused. Results & Data Vital Signs (Past 12 Hours) Vital Signs Temp Pulse Pulse Resp BP BP Pulse Ox 11/19/24 19:46 78 21 154/85 H 94 11/19/24 18:53 84 11/19/24 15:54 11/19/24 15:30 78 20 126/81 94 11/19/24 14:18 85 18 148/91 H 95 11/19/24 13:00 90 16 157/83 H 92 11/19/24 11:28 83 18 134/92 99 11/19/24 09:25 36.6 C 101 H 18 123/78 95 Pulse Ox O2 Del Method O2 Del Method 11/19/24 19:46 Room Air 11/19/24 18:53 11/19/24 15:54 96 Room Air 11/19/24 15:30 Room Air 11/19/24 14:18 11/19/24 13:00 Room Air 11/19/24 11:28 Room Air 11/19/24 09:25 Room Air (5) Atrial fibrillation Atrial fibrillation type: unspecified Qualified Code(s): I48.91 - Unspecified atrial fibrillation
[2024-11-19] MEDS: PRAZOSIN HCL 1 MG CAP PO SCH (20:24)
[2024-11-19] MEDS: HYDROCORTISONE 10 MG TAB PO SCH (20:24)
[2024-11-19] MEDS: MIRTAZAPINE TAB 15 MG TAB PO SCH (20:25)
[2024-11-19] MEDS: LACOSAMIDE 50 MG TABLET PO SCH (20:25)
[2024-11-19] MEDS: traZODone HCL 100 MG TAB PO SCH (20:27)
[2024-11-19] MEDS: PANTOprazole 40 MG TAB PO SCH (20:27)
[2024-11-19] MEDS: PROPRANOLOL HCL 60 MG LA CAP PO SCH (20:27)
[2024-11-19] MEDS: levETIRAcetam 500 MG TAB PO SCH (20:28)
[2024-11-19] MEDS: METOPROLOL SUCC 25MG EXT REL TAB PO SCH (20:28)
[2024-11-19] MEDS: LITHIUM CARBONATE 300 MG TAB PO SCH (20:29)
[2024-11-19] MEDS: CLOPIDOGREL BISULFATE 75 MG TAB PO SCH (20:29)
[2024-11-19] MEDS: DULoxetine HCL 30 MG CAP PO SCH (20:34)
--- NOTE | 2024-11-19 22:20 | XRay Report ---
Exam(s): XR RIGHT ANKLE, 3+ views EXAM: XR Right Ankle Complete, 3 or More Views CLINICAL HISTORY: Fracture. TECHNIQUE: Frontal, lateral and oblique views of the right ankle. COMPARISON: No relevant prior studies available. FINDINGS: Bones/joints: Chronic fractures of the distal tibia and fibula. No evidence of acute fracture. No dislocation. Soft tissues: Marked nonspecific soft tissue swelling of the ankle. IMPRESSION: 1. Marked nonspecific soft tissue swelling of the ankle. 2. Chronic fractures of the distal tibia and fibula. No evidence of acute fracture. Electronically signed by: Elaina Pitts MD 11/19/24 22:19 PM
[2024-11-19] MEDS: LANTUS PER UNIT CHARGE SQ SCH (22:27)
[2024-11-19] MEDS: DESMOPRESSIN ACETATE 0.1 MG TAB PO SCH (22:56)
[2024-11-20] MEDS: TESTOSTERONE~ORDER AWAITING ACTION SCH (00:25)
[2024-11-20] MEDS: NURTEC~ORDER AWAITING ACTION SCH (00:25)
[2024-11-20] MEDS: LEVOTHYROXINE SODIUM 200 MCG TABLET PO SCH (06:15)
[2024-11-20 07:10] LABS: Basophils # (auto) 0.06 K/uL (0.00-0.20); Basophils % (auto) 0.6 %; Eosinophils # (auto) 0.15 K/uL (0.00-0.50); Eosinophils % (auto) 1.6 %; Hematocrit (blood only) 32.9 % (42.0-52.0); Hemoglobin 10.8 g/dl (14.0-18.0); Immature Granulocytes # (auto) 0.39 K/uL (0.01-0.20); Immature Granulocytes % (auto) 4.2 %; Lymphocytes # (auto) 2.05 K/uL (1.20-3.40); Lymphocytes % (auto) 22.1 %; Mean Corpuscular Hemoglobin 29.8 pg (25.0-34.0); Mean Corpuscular Hgb Conc 32.8 g/dL (32.0-36.0); Mean Corpuscular Volume 90.6 fL (80.0-100.0); Mean Platelet Volume 8.3 fL (9.4-12.4); Monocytes # (auto) 0.62 K/uL (0.11-0.59); Monocytes % (auto) 6.7 %; Neutrophils # (auto) 6.01 K/uL (1.40-6.50); Neutrophils % (auto) 64.8 %; Platelet Count 167 K/uL (130-400); RDW Coefficient of Variation 15.2 % (11.5-14.5); RDW Standard Deviation 50.2 fL (36.4-46.3); Red Blood Count 3.63 M/uL (4.70-6.10); White Blood Count 9.28 K/ul (4.8-10.8)
[2024-11-20 07:26] LABS: BUN Creatinine Ratio 16.8 (10-20); Potassium 3.7 mmol/L (3.5-5.1)
[2024-11-20 07:35] VITALS: RESP 18
--- NOTE | 2024-11-20 07:45 | Hospitalist Progress Note ---
Date of Service November 20, 2024 Assessment & Plan (1) Cellulitis of right lower extremity: Plan: patient with right LE cellulitis since August 2024; patient stated he had "compartment syndrome" and hospitalized with [facility] throughout August and September 2 wounds of posterior knee and distal Achilles tendon, along with fourth and fifth metatarsals that are actively bleeding Numbness x 2 weeks Questionable cellulitis however was started on vancomycin and Zosyn in ED - Continue Zosyn blood cultures pending Wound care every shift as per ordered protocol wound care consulted, appreciate orthopedic eval, no intervention planned teds ordered elevated lactate likley from tissue injury from lacertion and abrasion (2) Right fibular fracture: Plan: / to fall from seizure in August R tib/fib XR 09/08 showed healed distal fibular fracture repeat XR 10/29 shows chronic fracture deformity of fibula likely contributing to edema with above Tylenol prn for pain however patient reports numbness Nonweightbearing to right LE consult ortho no intervention planned chronic non union (3) Chronic respiratory failure with hypoxia: Plan: patient with history of CORINA on CPAP, COPD on chronic O2, HFpEF, recent hospitalization 10/26 with pneumonia currently non-hypoxic on room air Pro-Vincent negative Will order home continuous oxygen via nasal cannula, 3L CPAP at bedtime Continue Bumex 1 Mg teds, heart healthy, low-sodium diet Daily weight (4) Atrial fibrillation: Plan: previous history of afib s/p watchman procedure not anticoagulated given seizure history and high risk of brain bleed continue on aspirin, Plavix, metoprolol XL 25 Mg daily (5) Seizure disorder: Plan: continue Keppra, lacosamide, and Depakote Seizure precautions (6) Type 2 diabetes mellitus: Plan: Controlled on metformin and 12 units lantus HS at home - SSI with target BSG range 110-140mg/dL, CF 35, carb ratio 12 - continue home Lantus 12 U - T2DM diet - BSG ACHS if eating, q6h if npo (7) Panhypopituitarism: Plan: Follows with endocrinology outpatient Continue desmopressin 0.4 BID continue hydrocortisone 20 Mg every morning and 10 Mg q. afternoon Plan Chronic stable diagnoses: hypothyroidismcontinue levothyroxine Bipolar disordercontinue lithium, aripiprazole, trazodone, mirtazapine chronic back painTylenol as needed, continue duloxetine BPH - not currently in retention, bladder scan prn hld - continue statin anemia - continue iron supplement VTE ppx: SCDs + TEDS; defer chemical ppx due to hx of seizures and high bleeding risk Diet: T2dm, heart healthy, low-sodium Admission and Anticipated Discharge Date Admission Date: November 19, 2024 Results & Data Results & Data Vital Signs (Past 12 Hours) Vital Signs Temp Pulse Pulse Pulse Resp BP BP 11/20/24 07:34 97.5 F L 77 18 154/96 H 11/20/24 07:00 73 11/20/24 03:38 97.0 F L 76 16 131/76 11/20/24 02:30 75 14 11/19/24 23:27 97.5 F L 83 16 117/74 11/19/24 23:15 75 15 11/19/24 22:54 84 11/19/24 22:44 11/19/24 22:44 97.5 F L 84 18 138/85 11/19/24 21:27 83 21 119/86 11/19/24 19:46 78 21 154/85 H Pulse Ox O2 Del Method O2 Flow Rate 11/20/24 07:34 95 Room Air 11/20/24 07:00 11/20/24 03:38 99 CPAP 11/20/24 02:30 98 3 11/19/24 23:27 99 CPAP 11/19/24 23:15 98 3 11/19/24 22:54 11/19/24 22:44 Room Air, BiPAP 11/19/24 22:44 95 Room Air 11/19/24 21:27 93 Room Air 11/19/24 19:46 94 Room Air PG Care Time/CCT Total # of Minutes Spent Total Time Spent with Patient: Total time spent is greater than 50% in coordination of care (as documented) at patient's floor/unit and/or counseling patient: Coding Diagnoses Cellulitis of right lower extremity L03.115 Right fibular fracture S82.401A Chronic respiratory failure with hypoxia J96.11 Atrial fibrillation I48.91 Atrial fibrillation type: unspecified Seizure disorder G40.909 Type 2 diabetes mellitus E11.9 Panhypopituitarism E23.0 (4) Atrial fibrillation Atrial fibrillation type: unspecified Qualified Code(s): I48.91 - Unspecified atrial fibrillation
[2024-11-20] MEDS: ASPIRIN 81 MG ECTAB PO SCH (07:58)
[2024-11-20] MEDS: ROSUVASTATIN CALCIUM 20 MG TAB PO SCH (07:58)
[2024-11-20] MEDS: HYDROCORTISONE 10 MG TAB PO SCH (07:58)
[2024-11-20] MEDS: FINASTERIDE 5 MG TAB PO SCH (07:58)
[2024-11-20] MEDS: OXYBUTYNIN CHLORIDE XL 5 MG TABCR PO SCH (07:59)
[2024-11-20] MEDS: BUMETANIDE 1 MG TAB PO SCH (07:59)
[2024-11-20] MEDS: ARIPiprazole 5 MG TAB PO SCH (07:59)
[2024-11-20] MEDS: DIVALPROEX DELAY RELEASE 500 MG TAB PO SCH (07:59)
[2024-11-20] MEDS: DULoxetine HCL 60 MG CAP PO SCH (08:01)
[2024-11-20] MEDS: FERROUS SULFATE 325 MG TAB PO SCH (08:03)
[2024-11-20 11:30] VITALS: BP 138/91; TEMP 97.9; O2SAT 94
[2024-11-20 12:43] VITALS: PULSE 83
--- NOTE | 2024-11-20 16:25 | Discharge Summary ---
Discharge Summary Date of Service November 20, 2024 Principal Dx & Hospital Course #1 = Principal Diagnosis (1) Cellulitis of right lower extremity: patient with right LE cellulitis since August 2024; patient stated he had "compartment syndrome" and hospitalized with [facility] throughout August and September 2 wounds of posterior knee and distal Achilles tendon, along with fourth and fifth metatarsals that are actively bleeding Numbness x 2 weeks No obvious cellulitis was seen patient did have lacerations that were bleeding will have 3 days of Bactrim after discharge blood cultures pending but negative time of discharge wound care consulted, appreciate orthopedic eval, no intervention planned Patient planning to follow-up with wound care after discharge elevated lactate likely from tissue injury from laceration and abrasion (2) Right fibular fracture: / to fall from seizure in August R tib/fib XR 09/08 showed healed distal fibular fracture repeat XR 10/29 shows chronic fracture deformity of fibula likely contributing to edema with above Tylenol prn for pain however patient reports numbness Nonweightbearing to right LE consult ortho no intervention planned chronic non union (3) Chronic respiratory failure with hypoxia: patient with history of CORINA on CPAP, COPD on chronic O2, HFpEF, recent hospitalization 10/26 with pneumonia currently non-hypoxic on room air Pro-Vincent negative Will order home continuous oxygen via nasal cannula, 3L CPAP at bedtime Continue Bumex 1 Mg (4) Atrial fibrillation: previous history of afib s/p watchman procedure not anticoagulated given seizure history and high risk of brain bleed continue on aspirin, Plavix, metoprolol XL 25 Mg daily (5) Seizure disorder: continue Keppra, lacosamide, and Depakote Seizure precautions (6) Type 2 diabetes mellitus: Controlled on metformin and 12 units lantus HS at home (7) Panhypopituitarism: Follows with endocrinology outpatient Continue desmopressin 0.4 BID continue hydrocortisone 20 Mg every morning and 10 Mg q. afternoon Plan Chronic stable diagnoses: hypothyroidismcontinue levothyroxine Bipolar disordercontinue lithium, aripiprazole, trazodone, mirtazapine chronic back painTylenol as needed, continue duloxetine BPH - not currently in retention, bladder scan prn hld - continue statin anemia - continue iron supplement Admission HPI Per Admitting Provider Patient is a 54-year-old male with a past medical history of A-fib s/p Watchman procedure, epilepsy, panhypopituitarism, hypothyroidism, DM, HFpEF, silicosis/COPD on chronic oxygen, anemia, hypertension, GERD, CAD/HLD, anxiety, depression. He presents today due to numbness of his right lower extremity. He stated that in August he was life flighted to [facility] due to compartment syndrome and status epilepticus needing intubation. He stated that by the time he got there from [facility], the surgeon stated "it was too late" because he had open wounds of his right lower extremity. He stated that he previously had pain around the wounds of his right lower extremity, but now for the past 2 weeks his entire right lower extremity has been numb. He also stated it looks a different color than the left. He has had bleeding from his fourth and fifth right toes. He has home health nurses that have been helping to take care of him who stated he should come in today. He was using a walker which has lentz sition to cane and now currently crutches. Although he states he is supposed to be nonweightbearing still. He stated he has been using compression stockings on his bilateral lower extremity, he believes he will need compression stockings of his right lower extremity for about 2 years. He also stated that during one of his seizures he hit his right leg resulting in a chronic ankle fracture. He has been following with his PCP for the ankle fracture and possible compartment syndrome. He has a history of epilepsy and his last seizure was approximately 2 weeks ago. He took all of his home medications today. He does not take anticoagulation with his A-fib due to the high risk of brain bleed with his seizures, he has a Watchman procedure. Patient denies fever, chills, headache, dizziness, lightheadedness, cough, dyspnea, dyspnea on exertion, chest pain, abdominal pain. He stated that he lives at home with his and stepchildren who help to take care of him. He stated he has a history of silicosis/COPD and is on chronic oxygen at 3 L, he also uses BiPAP overnight for CORINA. He does have a history of DVT approximately 14 years ago. He wishes to be DNR/DNI; he was very upset about being intubated with previous hospitalizations at other facilities. He would not want intubation under any circumstances. Discharge Plan Discharge Items Patient Disposition: Home - Self-Care Reason For Visit: Aidan WETZEL WOUNDS Discharge Diagnosis: right foot laceration Activity: Resume your previous activity Non-emergency contact: Primary Care Provider Call non-emergency contact if: your symptoms worsen Follow-up/Referrals: Larry Amaral MD [Primary Care Provider] - 11/27/24 1:30 pm Diet: Carb Consistent or DM2 Addtl Attending Provider Instructions: wash foot with wounds daily and dry well apply some antibiotic ointment that you can get over the counter and then a dry dressing, wrap loosely to allow moisture out change dressing daily or if soiled or wet be sure to have a provider look at your wounds next week we are going to given you a short course of antibiotics Pending Studies at Discharge: Yes Studies:: cultures are negative for infection but will keep being watched for 4 days Stand-Alone Forms: My [facility] Principle Power, Smoking Cessation Medications and DC Order Prescriptions: New sulfamethoxazole-trimethoprim [Bactrim] 400-80 mg tablet 1 tab PO BID Qty: 6 0RF Continued lithium carbonate 300 mg tablet 300 mg PO AMHS fluticasone propionate [Flonase Allergy Relief] 50 mcg/actuation spray,suspension 1 spray intranasal HS PRN (Reason: allergy symptoms) Qty: 16 0RF Rx Instructions: administer into each nostril (DME) insulin syringe-needle U-100 [BD Insulin Syringe Ultra-Fine] 1 mL 30 gauge x 1/2" syringe See Rx Instructions .Route Qty: 300 1RF Rx Instructions: use tid (DME) OneTouch Verio test strips Strip See Rx Instructions .MEDSUPPLY Qty: 150 5RF Rx Instructions: check blood sugars 4 times a day (DME) blood-glucose meter [OneTouch Verio Reflect Meter] Misc See Rx Instructions miscellaneous .MEDSUPPLY Qty: 1 0RF Rx Instructions: As directed (DME) lancets [OneTouch Delica Plus Lancet] 33 gauge misc See Rx Instructions .MEDSUPPLY Qty: 150 5RF Rx Instructions: As directed check blood sugars 4 times a day metformin 1,000 mg tablet 1,000 mg PO BID Qty: 180 3RF Hold Instructions: Per Dr Voss to hold as of 11/23/22 Norditropin FlexPro 5 mg/1.5 mL (3.3 mg/mL) pen injector 0.3 mg SQ QPM Qty: 2 5RF (DME) FreeStyle Rosalie 2 Sensor Kit See Rx Instructions .Route Qty: 6 3RF Rx Instructions: Change every 14 days testosterone 20.25 mg/1.25 gram (1.62 %) gel in metered-dose pump 2 pump TOP PM Qty: 75 5RF Rx Instructions: apply 1 pump amount over max area of EACH upper arm and shoulder PDMP Queried ok to fill 03/17/2023 DS nystatin 100,000 unit/gram cream 1 applic topical BID Qty: 30 0RF Botox 200 unit recon soln See Rx Instructions IM .COMPLEX Qty: 1 3RF Rx Instructions: 155 UNITS IM IN THE FACE AND NECK MUSCLES EVERY 12 WEEKS PER MIGRAINE PROTOCOL lacosamide 150 mg tablet 150 mg PO BID Qty: 60 5RF cholecalciferol (vitamin D3) 50 mcg (2,000 unit) capsule 50 mcg PO QPM Qty: 90 1RF rosuvastatin 20 mg tablet 20 mg PO QAM Qty: 90 2RF pantoprazole 40 mg tablet,delayed release (DR/EC) 40 mg PO BID Qty: 60 5RF levothyroxine 200 mcg tablet 200 mcg PO QAM Qty: 30 3RF (DME) pen needle, diabetic [BD Vy 2nd Gen Pen Needle] 32 gauge x 5/32" needle See Rx Instructions miscellaneous .MEDSUPPLY Qty: 100 3RF Rx Instructions: inject with a new pen needle daily hydrocortisone 10 mg tablet 10 mg PO UD Qty: 135 1RF Rx Instructions: TAKE 20mg IN THE AM AND 10mg IN THE PM. MAY DOUBLE THE DOSE IN TIMES OF STRESS. (DME) FreeStyle Rosalie 2 [place] Misc See Rx Instructions .Route Qty: 1 0RF Rx Instructions: Check blood glucose before each meal (DME) OneTouch Verio test strips Strip See Rx Instructions .Route Rx Instructions: Test blood sugar two times daily duloxetine 30 mg capsule,delayed release(DR/EC) 0 mg PO HS Rx Instructions: Pt states he takes this in the evening, but pharmacy doesn't show a Duloxetine 30mg on file. Original Directions: 30mg by mouth HS mirtazapine [Remeron] 30 mg tablet 30 mg PO HS Rx Instructions: Take 30mg w/ 15mg tablet to equal 45mg at bedtime. Nurtec ODT 75 mg tablet,disintegrating 75 mg PO DAILY PRN (Reason: Migraine Headache) Qty: 8 6RF albuterol sulfate [Ventolin HFA] 90 mcg/actuation HFA aerosol inhaler 2 inh inhalation Q6H PRN (Reason: shortness of breath or wheezing) Qty: 6.7 2RF (DME) nebulizers [Compact Compressor Nebulizer] Misc See Rx Instructions .Route Qty: 1 0RF Rx Instructions: One compact compressor nebulizer. Use as directed. Please include tubing, mouth piece and cup. ipratropium-albuterol 0.5 mg-3 mg(2.5 mg base)/3 mL solution for nebulization 3 ml inhalation QID PRN (Reason: wheezing) Qty: 90 0RF levetiracetam 1,000 mg tablet 1,000 mg PO Q12H trazodone 100 mg tablet 100 mg PO HS ferrous sulfate 325 mg (65 mg iron) tablet 325 mg PO QAM insulin glargine [Lantus Solostar U-100 Insulin] 100 unit/mL (3 mL) insulin pen 12 unit SUBCUT HS Hold Instructions: Has been on hold for a few weeks per pt Patient Comments: PER PT HE IS TAKING 12 UNITS -CONFIRMED ON 07/19/24 duloxetine 60 mg capsule,delayed release(DR/EC) 0 mg PO QAM Rx Instructions: Pt states that he takes 60mg in the morning and 30mg in the evening. Original Directions: 60mg by mouth twice daily lorazepam 0.5 mg Tablet 0.5 mg PO DAILY PRN (Reason: Seizure Activity) aspirin 81 mg tablet,delayed release (DR/EC) 81 mg PO QAM dutasteride 0.5 mg capsule 0.5 mg PO QAM Rx Instructions: TAKE 1 CAPSULE BY MOUTH DAILY IN THE MORNING Baqsimi 3 mg/actuation spray,non-aerosol 3 mg intranasal ONCE PRN (Reason: Severe Hypoglycemia) Rx Instructions: for treatment of severe hypoglycemia, second dose may be given if patient does not respond after 15 minutes . Per caregiver, pt has never has to use this medication. bumetanide 1 mg Tablet 1 mg PO QAM Qty: 30 0RF vitamin B complex [Vitamins B Complex] Capsule 1 cap PO QAM Qty: 30 0RF desmopressin 0.2 mg tablet 0.4 mg PO BID divalproex 500 mg tablet,delayed release (DR/EC) 1,000 mg PO QAM prazosin 5 mg capsule 5 mg PO HS hydrocodone-acetaminophen 7.5-325 mg tablet 1 tab PO Q6H propranolol 120 mg capsule,extended release 24hr 120 mg PO HS oxybutynin chloride 5 mg tablet extended release 24hr 5 mg PO QAM Rx Instructions: TAKE 1 TABLET BY MOUTH DAILY metoprolol succinate 25 mg tablet extended release 24 hr 25 mg PO HS aripiprazole 5 mg tablet 5 mg PO DAILY clopidogrel 75 mg tablet 75 mg PO QPM Qty: 30 0RF Rx Instructions: last dose 10/14/24 Discharge Orders: Discharge Order (Routine); Ordered 11/20/24 Ordered By: Talha Chin/Other Patient Handouts: ED Cellulitis, ED Leg Fracture, ED Laceration Infect Not Stitched Admission Data Admit Date/Time: 11/19/24 13:54 Attending Provider: Talha Willingham Admit Provider: Talha Willingham Primary Care Provider: Larry Amaral Other Providers: Talha Willingham; Kyle Phillips; Hernandez Fischer [facility] Other Interventions: Discharge Summary Assessment (RN) Last Done: 11/20/24 12:55 Hospital Stay Data Consultations 11/19/24 12:58 ED Decision to Admit Stat 11/19/24 15:43 Consult Orthopedic Surgery Routine Diagnostic Imagining Performed 11/19/24 11:23 US venous doppler LE RT Stat Pending Results Patient Have Any Pending Studies at Discharge: Yes Discharge Instructions Given to Patient (Per Discharging Provider) wash foot with wounds daily and dry well apply some antibiotic ointment that you can get over the counter and then a dry dressing, wrap loosely to allow moisture out change dressing daily or if soiled or wet be sure to have a provider look at your wounds next week we are going to given you a short course of antibiotics Total Time Total Time Spent Total Time Spent (In Minutes): It required greater than 30 minutes to prepare this patient for discharge. Coding Level of Care Code 46411 INP/OBS DISCH >30 MIN Diagnoses Cellulitis of right lower extremity L03.115 Right fibular fracture S82.401A Chronic respiratory failure with hypoxia J96.11 Atrial fibrillation I48.91 Atrial fibrillation type: unspecified Seizure disorder G40.909 Type 2 diabetes mellitus E11.9 Panhypopituitarism E23.0
== END 2024-11-20 13:23 | disposition home or self-care (01) | DRG 603 ==
LOC: ED 09:17 → INTOOBSV 13:54 → EDINP 13:54 → 2N 15:32

== ENCOUNTER 2025-01-16 09:07 | Inpatient (IN) ==
[2025-01-16 09:59] LABS: Appearance Urine Clear (Clear); Bacteria Urine Automated None Seen (None Seen); Bilirubin Urine Negative (Negative); Blood Urine 3+ (Negative); Cast Urine Automated 0-2 /lpf (0-2); Color Urine Dark Yellow; Epithelial Cell Urine Auto 0-2 /hpf (0-2); Glucose Urine UA Negative (Negative); Ketones Urine Trace (Negative); Leukocyte Esterase Urine Negative (Negative); Nitrite Urine Negative (Negative); Protein Urine 1+ (Negative); RBC Urine Automated >20 /hpf (0-2); Specific Gravity Urine 1.024 (1.000-1.030); Urobilinogen Urine Positive (Negative); WBC Urine Automated 0-5 /hpf (0-5)
[2025-01-16 10:08] LABS: Basophils # (auto) 0.03 K/uL (0.00-0.20); Basophils % (auto) 0.4 %; Eosinophils # (auto) 0.04 K/uL (0.00-0.50); Eosinophils % (auto) 0.5 %; Hematocrit (blood only) 39.7 % (42.0-52.0); Hemoglobin 13.3 g/dl (14.0-18.0); Immature Granulocytes # (auto) 0.27 K/uL (0.01-0.20); Immature Granulocytes % (auto) 3.2 %; Lymphocytes # (auto) 1.18 K/uL (1.20-3.40); Lymphocytes % (auto) 13.8 %; Mean Corpuscular Hemoglobin 29.3 pg (25.0-34.0); Mean Corpuscular Hgb Conc 33.5 g/dL (32.0-36.0); Mean Corpuscular Volume 87.4 fL (80.0-100.0); Mean Platelet Volume 8.4 fL (9.4-12.4); Monocytes # (auto) 1.05 K/uL (0.11-0.59); Monocytes % (auto) 12.3 %; Neutrophils # (auto) 5.99 K/uL (1.40-6.50); Neutrophils % (auto) 69.8 %; Nucleated RBC # (auto) 0.04 K/uL (0.00-0.12); Nucleated RBC % (auto) 0.5 %; Platelet Count 133 K/uL (130-400); RDW Coefficient of Variation 14.5 % (11.5-14.5); RDW Standard Deviation 45.6 fL (36.4-46.3); Red Blood Count 4.54 M/uL (4.70-6.10); White Blood Count 8.56 K/ul (4.8-10.8)
[2025-01-16] MEDS: ALBUTEROL 0.5% NEB SOLN 2.5 MG/0.5 ML VIAL NEB STA (10:18)
[2025-01-16] MEDS: SODIUM CHLORIDE 0.9% 1,000 ML IV ONE (10:20)
[2025-01-16 10:24] LABS: Albumin Globulin Ratio 2.2 (0.9-2); Albumin Level 4.4 gm/dl (3.4-5.0); BUN Creatinine Ratio 10.2 (10-20); Bilirubin,Total 0.6 mg/dl (0.2-1.0); Calcium 9.1 mg/dl (8.6-10.3); Creatinine Clr Calc Pharmacy 91.8 ml/min; Magnesium 1.1 mg/dl (1.7-2.4); Potassium 3.5 mmol/L (3.5-5.1); Total Protein 6.4 gm/dl (6.0-8.3)
[2025-01-16 10:31] LABS: Base Excess VBG 4.1 mEq/L; HCO3 VBG 29 mmol/L; PCO2 VBG 41 mmHg (38-50); PO2 VBG 73 mmHg; pH VBG 7.45 (7.36-7.41)
[2025-01-16 10:32] LABS: Troponin I High Sensitivity 19.2 pg/ml (0-20)
--- NOTE | 2025-01-16 10:34 | XRay Report ---
XR chest 1V portable CLINICAL HISTORY: Dyspnea COMPARISON STUDY: 10/23/2024 FINDINGS: There is stable mild cardiomegaly with mild pulmonary vascular congestion. No effusion, con solidation, or pneumothorax. IMPRESSION: Mild CHF. ACT 112: Negative or not required by law. Electronically signed by: Keon Crump M.D. 01/16/2025 10:33 AM
--- NOTE | 2025-01-16 10:39 | Emergency Department Note ---
Impression & Plan Influenza A, Acute hypoxic respiratory failure, Diaphoresis ED Provider Note NAME: LINSEY VIRAMONTES Jr AGE: 54 SEX: M : 1970 ARRIVES VIA: Ambulance INFORMANT: Patient, ED PROVIDER(S): Madalyn Cheek MD CHIEF COMPLAINT: Shortness breath, seizure HPI: This is a 54-year-old male with history of seizure disorder, type 2 diabetes, COPD, restrictive lung disease presenting for shortness of breath and possible seizure. Patient notes that he has had seizures over the past few days. He takes multiple medications for this and this is chronic for him. He does not drink alcohol regularly. He notes he has been having thick phlegm and shortness of breath for the past 2-3 nights. He takes an at home nebulizers treated COPD/asthma. No relief. ROS: See above HPI for pertinent positives & negatives. A total of 10 systems reviewed and were otherwise negative. PAST MEDICAL HISTORY: See Below PAST SURGICAL HISTORY: See Below FAMILY HISTORY: See Below SOCIAL HISTORY: See Below HOME MEDICATIONS: See Below ALLERGIES: See Below VITALS: See Below PHYSICAL EXAMINATION: General: Unwell appearing, diaphoretic Head: Normocephalic and atraumatic Eyes: Normal inspection, extraocular muscles intact Ear, nose, throat: Normal external exam Neck: Normal range of motion Respiratory: Wheezing and crackles in all lung kong Cardiovascular: Regular rate/rhythm, no murmur GI: soft, nontender, no guarding or rebound Extremities: nontender, moves all extremities Neuro: The patient awake and alert, appropriately conversive, no focal deficits, symmetric faces Skin: Warm, dry, and intact MEDICAL DECISION MAKING: This is a 54-year-old male presenting for shortness of breath and seizure. This time patient is febrile, tachycardic, tachypneic. He appears to be in extremis. Will give fluids, albuterol treatment. Will check basic blood work to assess for sepsis, pneumonia. -Blood was reviewed showing no leukocytosis, hemoglobin 13.3. Otherwise no significant dehydration at this time. Patient is of a lactic acid level of 2.5. Troponin nonelevated. -Urinalysis reveals signs of hematuria without infection -Patient positive for influenza A -Chest x-ray reveals mild CHF -Patient did receive 1 L normal saline out of concerns of sepsis initially. With patient not having signs of bacterial etiology, consider this is likely influenza related. Will admit for further workup and hypoxia -Discussed with Dr. Henley for admission Differential diagnosis: Sepsis, pneumonia, PE, URI, influenza Diagnostics interpreted by me: ECG: ECG independently interpreted by me with sinus tachycardia rate of 110, normal axis, normal VT, normal QRS, normal QTc, no ST segment elevations consistent with STEMI criteria Cardiac Monitoring: An order was placed for continuous cardiac monitoring. The monitor shows a rate of 96 with sinus rhythm. Past Med/Surg History Problem List (Updated 01/16/25 @ 17:12 by Madalyn Cheek MD) Diaphoresis (Acute) Acute hypoxic respiratory failure (Acute) Influenza A (Acute) Influenza A LPRD (laryngopharyngeal reflux disease) Arthralgia Anti-cyclic citrullinated peptide antibody positive Restrictive lung disease Fall (Acute) Hematoma (Acute) Venous stasis ulcers (Acute) Chronic venous insufficiency (Chronic) Seizure disorder (Acute) Presbyopia of both eyes Epiretinal membrane (ERM) of left eye Ocular hypertension Secondary cataract of left eye with vision obscured Combined form of senile cataract of right eye Abnormal PFTs (pulmonary function tests) Abnormal chest CT COPD (chronic obstructive pulmonary disease) Demyelinating disease Hypertension (Acute) Secondary adrenal insufficiency Pituitary hypogonadism Follows with endocrinology- Pituitary hypothyroidism Follows with endocrinology- Non-occlusive coronary artery disease Lumbar stenosis with neurogenic claudication Esophageal dysphagia Anxiety (Chronic) Mitral regurgitation Essential tremor Idiopathic polyneuropathy Arachnoid cyst of posterior cranial fossa Obstructive sleep apnea (Acute) Mixed hyperlipidemia Ulcerative colitis Anemia (Acute) Bipolar disorder (10/11/22) Chronic migraine without aura or status migrainosus Uncontrolled type 2 diabetes mellitus with hyperglycemia Suspect low glycation index meaning his A1c is typically about 2 points lower than what his average glucose would suggest. Current use of proton pump inhibitor Severe obesity (BMI 35.0-35.9 with comorbidity) 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 Growth hormone deficiency Depression BPH with obstruction/lower urinary tract symptoms Medical History Presence of Watchman left atrial appendage closure device Status epilepticus (09/13/24) Knee hemarthrosis, right (09/13/24) Acute on chronic anemia (09/13/24) Acute metabolic encephalopathy (09/13/24) Acute hypoxic respiratory failure (09/13/24) Laceration of toe of right foot Closed fracture of right fibula with malunion Type 2 diabetes mellitus Right fibular fracture Acute on chronic respiratory failure with hypoxia and hypercapnia Shortness of breath Acute hypercapnic respiratory failure Acute hypercapnic respiratory failure Chronic respiratory failure with hypoxia Obesity CKD (chronic kidney disease), stage III Peripheral edema Seizure disorder Atrial fibrillation (02/15/24) Chronic low back pain Panhypopituitarism Lumbosacral radiculopathy Toxic encephalopathy Chest pain Acute dyspnea Acute CHF Hypoglycemia Syncope and collapse Internal hemorrhoids Recurrent seizures Pituitary diabetes insipidus Spondylolysis, lumbar region Right lumbar radiculopathy HTN (hypertension) Bipolar disorder Adrenal insufficiency Pituitary adenoma Diabetes Bleeding (02/16/24) Acute blood loss anemia (02/19/24) Hyperactive gag reflex BRCA gene positive Family history of BRCA gene mutation PTSD (post-traumatic stress disorder) Epidural lipomatosis Chronic left sacroiliac pain Benzodiazepine overdose Presence of cardiac device Hx of fracture of foot Fracture of fibula, right, closed Cerebral concussion Orthostatic hypotension Pseudoseizures Sensorineural hearing loss of both ears Rectal bleeding History of COVID-19 Mitral valve regurgitation Vertigo Panhypopituitarism Lower extremity edema Elevated LFTs Bilateral hand pain Pituitary neoplasm Kidney stones Prostate mass Bladder mass Obstructive sleep apnea of adult Surgical History S/P TURP (status post transurethral resection of prostate) History of lumbar fusion History of cardiac cath S/P epidural steroid injection History of lithotripsy Status post right foot surgery History of bladder surgery History of prostate surgery History of colonoscopy History of esophagogastroduodenoscopy (EGD) History of tooth extraction History of wisdom tooth extraction History of brain surgery Family History Grandmother (Paternal) Family history of diabetes mellitus Aunt Family history of diabetes mellitus Uncle Family history of diabetes mellitus Father Prostate cancer Heart disease Osteoarthritis Mother Cardiac disorder Grandmother (Maternal) Myocardial infarction Other Asthma Cancer Hypertension No family history of adverse response to anesthesia No family history of bleeding disorder Stroke Denies family history of Ovarian cancer Breast cancer Colorectal cancer Social History Smoking Status: Never smoker Tobacco Type: Smokeless Tobacco (Dip or Chew) Second Hand Exposure: No; Do You Dip or Chew Tobacco: No; Hx Alcohol Use: No Hx Substance Use: No Preferred Language: Northern Irish Communication Ability: Effective Communication Ability Comment: Unable to obtain due to patient condition. Visual Impairment: Limited Hearing Ability: Normal [employer] Required: No Beliefs That Will Affect Care: None marital status: Single Current Living Situation: Family Current Living Situation Comment: and daughter current occupational status: disabled How many Children do You have: 3 How many Children do You have Comment: able to assist with care if needed Feels Safe at Home: Yes Childhood Exposure to Second-Hand Smoke: Yes (parents smoked) Diet: regular Diet Comment: going to be starting low carb/low calorie diet. caffeine: No (1/2 20 oz bottle of mountain dew. ) during the past year weight has: increased > 10 lbs Physical Activity Frequency: Daily Physical Activity Frequency Comment: walking, 1.5 miles daily. Seatbelt Use: always Do you think of yourself as: straight/heterosexual Gender Identity: Male Assistive Devices: Crutches and Oxygen - Continuous Allergies Allergies Allergy/AdvReac Type Severity Reaction Status Date / Time clindamycin Allergy Intermediate SWELLING Verified 12/18/24 11:27 Iodinated Contrast Media Allergy Intermediate face/eye Verified 12/18/24 11:27 swelling Quinolones Allergy Intermediate HIVES Verified 12/18/24 11:27 Home Meds Home Medications Medication Instructions Recorded Confirmed lithium carbonate 300 mg tablet 300 mg PO AMHS 06/04/22 01/16/25 mirtazapine 30 mg tablet (Remeron) 30 mg PO HS 06/23/22 01/16/25 blood sugar diagnostic (OneTouch 08/06/22 12/18/24 Verio test strips) dutasteride 0.5 mg capsule 0.5 mg PO QAM 04/06/24 01/16/25 glucagon 3 mg/actuation nasal 3 mg intranasal ONCE PRN Severe 04/06/24 01/16/25 spray (Baqsimi) Hypoglycemia aripiprazole 5 mg tablet 5 mg PO DAILY 05/29/24 01/16/25 insulin glargine 100 unit/mL (3 12 unit subcut HS 07/19/24 01/16/25 mL) subcutaneous pen (Lantus Solostar U-100 Insulin) trazodone 100 mg tablet 100 mg PO HS 10/03/24 01/16/25 hydrocodone 7.5 mg-acetaminophen 1 tab PO Q6H 11/19/24 01/16/25 325 mg tablet prazosin 5 mg capsule 5 mg PO HS 11/19/24 01/16/25 propranolol 120 mg capsule,24 120 mg PO HS 11/19/24 01/16/25 hr,extended release lorazepam 0.5 mg tablet 0.5 mg PO DAILY PRN Seizure 11/23/24 01/16/25 Activity duloxetine 60 mg capsule,delayed 60 mg PO BID 11/27/24 01/16/25 release ferrous sulfate 325 mg (65 mg 325 mg PO .qod 11/27/24 01/16/25 iron) tablet clopidogrel 75 mg tablet (Plavix) 75 mg PO DAILY 12/03/24 01/16/25 arformoterol 15 mcg/2 mL solution 2 ml inhalation BID 01/16/25 01/16/25 for nebulization (Brovana) oxybutynin chloride 5 mg 5 mg PO DAILY 01/16/25 01/16/25 tablet,extended release 24 hr Previous Rx's Medication Instructions Recorded fluticasone propionate 50 1 spray intranasal HS PRN allergy 03/16/23 mcg/actuation nasal symptoms #16 grams spray,suspension (Flonase Allergy Relief) FreeStyle Rosalie 2 [place] (flash #1 ea 05/13/23 glucose scanning reader) rimegepant 75 mg disintegrating 75 mg PO DAILY PRN Migraine 09/14/23 tablet (Nurtec ODT) Headache #8 tabs blood sugar diagnostic (OneTouch #150 ea 11/22/23 Verio test strips) blood-glucose meter (OneTouch #1 ea 11/22/23 Verio Reflect Meter) insulin syringe-needle U-100 1 mL #300 ea 11/22/23 30 gauge x 1/2" (BD Insulin Syringe Ultra-Fine) lancets 33 gauge (OneTouch Delica #150 ea 11/22/23 Plus Lancet) albuterol sulfate 90 mcg/actuation 2 inh inhalation Q6H PRN shortness 02/24/24 aerosol inhaler (Ventolin HFA) of breath or wheezing #6.7 grams metformin 1,000 mg tablet 1,000 mg PO BID #180 tabs 03/03/24 FreeStyle Rosalie 2 Sensor (flash #6 ea 05/02/24 glucose sensor) testosterone 2 pump topical PM #75 grams 05/04/24 nystatin 100,000 unit/gram topical 1 applic topical BID #30 grams 06/19/24 cream ipratropium 0.5 mg-albuterol 3 mg 3 ml inhalation QID PRN wheezing 07/31/24 (2.5 mg base)/3 mL nebulization #90 mL soln nebulizers (Compact Compressor #1 ea 07/31/24 Nebulizer) Botox 200 unit injection See Rx Instructions IM .COMPLEX #1 09/18/24 (onabotulinumtoxinA) ea cholecalciferol (vitamin D3) 50 50 mcg PO QPM #90 caps 09/19/24 mcg (2,000 unit) capsule rosuvastatin 20 mg tablet 20 mg PO QAM #90 tabs 09/19/24 pantoprazole 40 mg tablet,delayed 40 mg PO BID #60 tabs 09/21/24 release levothyroxine 200 mcg tablet 200 mcg PO QAM #30 tabs 10/22/24 pen needle, diabetic 32 gauge x #100 ea 10/23/2432" (BD Vy 2nd Gen Pen Needle) bumetanide 1 mg tablet 1 mg PO QAM #30 tabs 10/26/24 vitamin B complex (Vitamins B 1 cap PO QAM #30 caps 10/26/24 Complex capsule) tirzepatide 2.5 mg/0.5 mL 2.5 mg (0.5 mL) subcut Q7D #2 mL 11/22/24 subcutaneous pen injector (Unruly) levetiracetam 1,000 mg tablet 1,000 mg PO Q12H #60 tabs 11/26/24 aspirin 81 mg tablet,delayed 81 mg PO QAM #90 tabs 11/27/24 release desmopressin 0.2 mg tablet 0.4 mg (2 x 0.2 mg) PO BID #120 11/30/24 tabs metoprolol succinate 25 mg 25 mg PO HS #90 tabs 11/30/24 tablet,extended release 24 hr somatropin 5 mg/1.5 mL (3.3 mg/mL) 0.3 mg (0.09 mL) subcut QPM #2 11/30/24 subcutaneous pen injector syringes (Norditropin FlexPro) budesonide 0.5 mg/2 mL suspension 0.5 mg (2 mL) inhalation DAILY #60 12/04/24 for nebulization mL lisinopril 40 mg tablet 40 mg PO DAILY #90 tabs 12/06/24 divalproex 500 mg tablet,delayed 1,000 mg (2 x 500 mg) PO DAILY #60 12/14/24 release tabs hydrocortisone 10 mg tablet 10 mg PO UD #135 tabs 12/19/24 lacosamide 150 mg tablet 150 mg PO BID #60 tabs 12/26/24 famotidine 20 mg tablet (Acid 20 mg PO DAILY 6 weeks #42 tabs 01/11/25 Graduate Teaching Assistant (famotidine)) Results & Data (ED) Vital Signs Vital Signs - 24 hr 01/16/25 09:17 01/16/25 09:19 01/16/25 09:19 Temperature 38.1 C H Temperature Source Oral Pulse Rate 109 H 106 H Pulse Rate [Apical] Respiratory Rate 31 H Respiratory Effort / Characteristics Short of Breath Respiratory Depth Shallow Blood Pressure 158/83 H Blood Pressure [Right Arm] Blood Pressure Mean 108 Blood Pressure Mean [Right Arm] Pulse Oximetry 97 Oxygen Delivery Method Nasal Cannula Nasal Cannula Oxygen Flow Rate 3 3 Sepsis Recent Fever Within 48 Hours Yes Sepsis New/Unexplained Change in Mental Status N/A Sepsis Action Taken by Nursing Physician Notified 01/16/25 09:19 01/16/25 09:19 01/16/25 09:38 Temperature 38.1 C H Temperature Source Oral Pulse Rate 104 H Pulse Rate [Apical] 106 H Respiratory Rate 31 H 30 H Respiratory Effort / Characteristics Respiratory Depth Blood Pressure Blood Pressure [Right Arm] 158/83 H Blood Pressure Mean Blood Pressure Mean [Right Arm] 108 Pulse Oximetry 97 97 97 Oxygen Delivery Method Nasal Cannula Nasal Cannula Nasal Cannula Oxygen Flow Rate 3 3 3 Sepsis Recent Fever Within 48 Hours Sepsis New/Unexplained Change in Mental Status Sepsis Action Taken by Nursing Laboratory Data 01/16/25 09:16 01/16/25 09:16 Lab Results 01/16/25 01/16/25 01/16/25 Range/Units 09:15 09:16 09:34 WBC 8.56 (4.8-10.8) K/ul RBC 4.54 L (4.70-6.10) M/uL Hgb 13.3 L (14.0-18.0) g/dl Hct 39.7 L (42.0-52.0) % MCV 87.4 (80.0-100.0) fL MCH 29.3 (25.0-34.0) pg MCHC 33.5 (32.0-36.0) g/dL RDW Std Deviation 45.6 (36.4-46.3) fL RDW Coeff of Yanira 14.5 (11.5-14.5) % Plt Count 133 (130-400) K/uL MPV 8.4 L (9.4-12.4) fL Immature Gran % (Auto) 3.2 % Neut % (Auto) 69.8 % Lymph % (Auto) 13.8 % Charles % (Auto) 12.3 % Eos % (Auto) 0.5 % Baso % (Auto) 0.4 % Neut # (Auto) 5.99 (1.40-6.50) K/uL Lymph # (Auto) 1.18 L (1.20-3.40) K/uL Charles # (Auto) 1.05 H (0.11-0.59) K/uL Eos # (Auto) 0.04 (0.00-0.50) K/uL Baso # (Auto) 0.03 (0.00-0.20) K/uL Immature Gran # (Auto) 0.27 H (0.01-0.20) K/uL Absolute Nucleated RBC 0.04 (0.00-0.12) K/uL Nucleated RBC % (auto) 0.5 % VBG pH (7.36-7.41) VBG pCO2 (38-50) mmHg VBG pO2 mmHg VBG HCO3 mmol/L VBG O2 Saturation % VBG Base Excess mEq/L Sodium 135 L (136-145) mmol/L Potassium 3.5 (3.5-5.1) mmol/L Chloride 97 L (98-107) mmol/L Carbon Dioxide 29 (21-32) mmol/L Anion Gap 9 (3-11) BUN 12 (6-23) mg/dl Creatinine 1.18 (0.6-1.4) mg/dl Est Cr Clr Drug Dosing 91.8 ml/min eGFR 72.42 BUN/Creatinine Ratio 10.2 (10-20) Glucose 101 H (70-99(Fasting)) mg/dl Lactate (0.4-2.0) mmol/L Calcium 9.1 (8.6-10.3) mg/dl Magnesium 1.1 L (1.7-2.4) mg/dl Total Bilirubin 0.6 (0.2-1.0) mg/dl AST 24 (13-39) U/L ALT 26 (7-52) U/L Alkaline Phosphatase 49 (34-104) U/L Troponin I High Sens 19.2 (0-20) pg/ml Total Protein 6.4 (6.0-8.3) gm/dl Albumin 4.4 (3.4-5.0) gm/dl Globulin 2.0 L (2.5-4.0) gm/dl Albumin/Globulin Ratio 2.2 H (0.9-2) Urine Color Dark Yellow Urine Appearance Clear (Clear) Urine pH 7.0 (4.5-7.5) Ur Specific [place] 1.024 (1.000-1.030) Urine Protein 1+ H (Negative) Urine Glucose (UA) Negative (Negative) Urine Ketones Trace H (Negative) Urine Blood 3+ H (Negative) Urine Nitrite Negative (Negative) Urine Bilirubin Negative (Negative) Urine Urobilinogen Positive H (Negative) Ur Leukocyte Esterase Negative (Negative) Urine WBC (Auto) 0-5 (0-5) /hpf Urine RBC (Auto) >20 H (0-2) /hpf U Hyaline Cast (Auto) 0-2 (0-2) /lpf U Epithel Cells (Auto) 0-2 (0-2) /hpf Urine Bacteria (Auto) None Seen (None Seen) Nasal Influ A H1 2008 PCR DETECTED A (NotDetected) Adenovirus (PCR) Not Detected (NotDetected) B. pertussis DNA (PCR) Not Detected (NotDetected) B.parapertussis DNA PCR Not Detected (NotDetected) C. pneumoniae DNA (PCR) Not Detected (NotDetected) Coronavirus OC43 (PCR) Not Detected (NotDetected) Coronavirus HKU1 (PCR) Not Detected (NotDetected) Coronavirus 229E (PCR) Not Detected (NotDetected) SARS-CoV-2 (PCR) Not Detected (NotDetected) Coronavirus NL63 (PCR) Not Detected (NotDetected) Human Metapneumovir PCR Not Detected (NotDetected) Influenza Type B (PCR) Not Detected (NotDetected) M. pneumoniae (PCR) Not Detected (NotDetected) Parainfluenza 1 (PCR) Not Detected (NotDetected) Parainfluenza 2 (PCR) Not Detected (NotDetected) Parainfluenza 3 (PCR) Not Detected (NotDetected) Parainfluenza 4 (PCR) Not Detected (NotDetected) RSV (PCR) Not Detected (NotDetected) Entero/Rhino (PCR) Not Detected (NotDetected) 01/16/25 01/16/25 Range/Units 09:57 10:03 WBC (4.8-10.8) K/ul RBC (4.70-6.10) M/uL Hgb (14.0-18.0) g/dl Hct (42.0-52.0) % MCV (80.0-100.0) fL MCH (25.0-34.0) pg MCHC (32.0-36.0) g/dL RDW Std Deviation (36.4-46.3) fL RDW Coeff of Yanira (11.5-14.5) % Plt Count (130-400) K/uL MPV (9.4-12.4) fL Immature Gran % (Auto) % Neut % (Auto) % Lymph % (Auto) % Charles % (Auto) % Eos % (Auto) % Baso % (Auto) % Neut # (Auto) (1.40-6.50) K/uL Lymph # (Auto) (1.20-3.40) K/uL Charles # (Auto) (0.11-0.59) K/uL Eos # (Auto) (0.00-0.50) K/uL Baso # (Auto) (0.00-0.20) K/uL Immature Gran # (Auto) (0.01-0.20) K/uL Absolute Nucleated RBC (0.00-0.12) K/uL Nucleated RBC % (auto) % VBG pH 7.45 H (7.36-7.41) VBG pCO2 41 (38-50) mmHg VBG pO2 73 mmHg VBG HCO3 29 mmol/L VBG O2 Saturation 97.0 % VBG Base Excess 4.1 mEq/L Sodium (136-145) mmol/L Potassium (3.5-5.1) mmol/L Chloride (98-107) mmol/L Carbon Dioxide (21-32) mmol/L Anion Gap (3-11) BUN (6-23) mg/dl Creatinine (0.6-1.4) mg/dl Est Cr Clr Drug Dosing ml/min eGFR BUN/Creatinine Ratio (10-20) Glucose (70-99(Fasting)) mg/dl Lactate 2.5 H* (0.4-2.0) mmol/L Calcium (8.6-10.3) mg/dl Magnesium (1.7-2.4) mg/dl Total Bilirubin (0.2-1.0) mg/dl AST (13-39) U/L ALT (7-52) U/L Alkaline Phosphatase (34-104) U/L Troponin I High Sens (0-20) pg/ml Total Protein (6.0-8.3) gm/dl Albumin (3.4-5.0) gm/dl Globulin (2.5-4.0) gm/dl Albumin/Globulin Ratio (0.9-2) Urine Color Urine Appearance (Clear) Urine pH (4.5-7.5) Ur Specific [place] (1.000-1.030) Urine Protein (Negative) Urine Glucose (UA) (Negative) Urine Ketones (Negative) Urine Blood (Negative) Urine Nitrite (Negative) Urine Bilirubin (Negative) Urine Urobilinogen (Negative) Ur Leukocyte Esterase (Negative) Urine WBC (Auto) (0-5) /hpf Urine RBC (Auto) (0-2) /hpf U Hyaline Cast (Auto) (0-2) /lpf U Epithel Cells (Auto) (0-2) /hpf Urine Bacteria (Auto) (None Seen) Nasal Influ A H1 2009 PCR (NotDetected) Adenovirus (PCR) (NotDetected) B. pertussis DNA (PCR) (NotDetected) B.parapertussis DNA PCR (NotDetected) C. pneumoniae DNA (PCR) (NotDetected) Coronavirus OC43 (PCR) (NotDetected) Coronavirus HKU1 (PCR) (NotDetected) Coronavirus 229E (PCR) (NotDetected) SARS-CoV-2 (PCR) (NotDetected) Coronavirus NL63 (PCR) (NotDetected) Human Metapneumovir PCR (NotDetected) Influenza Type B (PCR) (NotDetected) M. pneumoniae (PCR) (NotDetected) Parainfluenza 1 (PCR) (NotDetected) Parainfluenza 2 (PCR) (NotDetected) Parainfluenza 3 (PCR) (NotDetected) Parainfluenza 4 (PCR) (NotDetected) RSV (PCR) (NotDetected) Entero/Rhino (PCR) (NotDetected) Administered Medications Aripiprazole (Aripiprazole 5 Mg Tab) 5 mg PO DAILY [facility] Stop: 02/15/25 12:22 Last Admin: 01/16/25 13:39 Dose: 5 mg Documented By: GONZALO Aspirin (Aspirin 81 Mg Ectab) [facility] [place] 02/15/25 12:22 Last Admin: 01/16/25 13:39 Dose: 81 mg Documented By: GONZALO Budesonide (Budesonide 0.5 Mg/2 Ml Vial (Pulmicort)) 0.5 mg INH DAILY@0700 [facility] Stop: 02/15/25 12:22 Last Admin: 01/16/25 14:35 Dose: Not Given Documented By: TOOTIE Bumetanide (Bumetanide 1 Mg Tab) 1 mg PO QAM [facility] Stop: 02/15/25 12:22 Last Admin: 01/16/25 13:42 Dose: 1 mg Documented By: GONZALO Clopidogrel Bisulfate (Clopidogrel Bisulfate 75 Mg Tab) 75 mg PO DAILY [facility] Stop: 02/15/25 12:22 Last Admin: 01/16/25 13:41 Dose: 75 mg Documented By: GONZALO Desmopressin Acetate (Desmopressin Acetate 0.1 Mg Tab) 0.4 mg PO BID [facility] Stop: 02/15/25 12:22 Last Admin: 01/16/25 13:38 Dose: 0.4 mg Documented By: GONZALO Divalproex Sodium (Divalproex Delay Release 500 Mg Tab) 1,000 mg PO DAILY [facility] Stop: 02/15/25 12:22 Last Admin: 01/16/25 13:38 Dose: 1,000 mg Documented By: GONZALO Duloxetine HCl (Duloxetine Hcl 60 Mg Cap) 60 mg PO BID [facility] Stop: 02/15/25 12:22 Last Admin: 01/16/25 13:40 Dose: 60 mg Documented By: GONZALO Famotidine (Famotidine 20 Mg Tab) 20 mg PO DAILY [facility] Stop: 02/15/25 12:22 Last Admin: 01/16/25 13:41 Dose: 20 mg Documented By: GONZALO Finasteride (Finasteride 5 Mg Tab) 5 mg PO QAM [facility] Stop: 02/15/25 12:44 Last Admin: 01/16/25 13:42 Dose: 5 mg Documented By: GONZALO Hydrocortisone (Hydrocortisone 10 Mg Tab) 20 mg PO QAM [facility] Stop: 02/15/25 12:14 Last Admin: 01/16/25 13:36 Dose: 20 mg Documented By: GONZALO Magnesium Sulfate/Dextrose (Magnesium Sulfate / D5w) 1 gm in 100 mls @ 50 mls/hr IV Q2H [facility] Stop: 01/16/25 19:29 Last Admin: 01/16/25 15:14 Dose: 50 mls/hr Documented By: Infusion: 01/16/25 15:02 Dose: Infused Documented By: Admin: 01/16/25 12:41 Dose: 50 mls/hr Documented By: GONZALO Insulin Aspart (Insulin Aspart Per Unit Charge) 0 units SC ACHS [facility] Stop: 02/15/25 11:29 Last Admin: 01/16/25 13:49 Dose: Not Given Documented By: GONZALO Lacosamide (Lacosamide 50 Mg Tablet) 150 mg PO BID [facility] Stop: 02/15/25 12:44 Last Admin: 01/16/25 13:36 Dose: 150 mg Documented By: GONZALO Levetiracetam (Levetiracetam 500 Mg Tab) 1,000 mg PO Q12 [facility] Stop: 02/15/25 12:22 Last Admin: 01/16/25 13:43 Dose: 1,000 mg Documented By: GONZALO Lisinopril (Lisinopril 40 Mg Tab) 40 mg PO DAILY [facility] Stop: 02/15/25 12:22 Last Admin: 01/16/25 13:39 Dose: 40 mg Documented By: GONZALO Oxybutynin Chloride (Oxybutynin Chloride Xl 5 Mg Tabcr) 5 mg PO DAILY [facility] Stop: 02/15/25 12:22 Last Admin: 01/16/25 13:42 Dose: 5 mg Documented By: AVM Discontinued Medications Albuterol (Albuterol 0.5% Neb Soln 2.5 Mg/0.5 Ml Vial) 2.5 mg NEB NOW STA; Protocol Stop: 01/16/25 09:56 Last Admin: 01/16/25 10:18 Dose: 2.5 mg Documented By: AVM Sodium Chloride (Nss) 1,000 mls @ 999 mls/hr IV .Q1H1M ONE Stop: 01/16/25 11:14 Last Infusion: 01/16/25 12:06 Dose: Infused Documented By: Admin: 01/16/25 10:20 Dose: 999 mls/hr Documented By: AVM Potassium Chloride (K Jonathan / Wtr) 10 meq in 100 mls @ 100 mls/hr IV Q1H [facility] Stop: 01/16/25 13:29 Last Infusion: 01/16/25 15:08 Dose: Infused Documented By: Admin: 01/16/25 14:18 Dose: 100 mls/hr Documented By: Infusion: 01/16/25 13:41 Dose: Infused Documented By: Admin: 01/16/25 12:41 Dose: 100 mls/hr Documented By: AVM Oseltamivir Phosphate (Oseltamivir Phosphate 75 Mg Cap) 75 mg PO ONE ONE Stop: 01/16/25 11:46 Last Admin: 01/16/25 15:43 Dose: Not Given Documented By: ASW Imaging Data Radiologist's Impression: Chest X-Ray 01/16/25 09:36 XR chest 1V portable CLINICAL HISTORY: Dyspnea COMPARISON STUDY: 10/23/2024 FINDINGS: There is stable mild cardiomegaly with mild pulmonary vascular congestion. No effusion, consolidation, or pneumothorax. IMPRESSION: Mild CHF. ACT 112: Negative or not required by law. Electronically signed by: Keon Crump M.D. 01/16/2025 10:33 AM Discharge Plan Visit Data Chief Complaint: Chest Pain Stated Complaint: CHEST PAIN, SOB, SYNCOPE, HEADACHE, COUGH, NAUSEA ED Provider: Madalyn Cheek Discharge Problem: Influenza A, Acute hypoxic respiratory failure, Diaphoresis Discharge Instructions Interventions: ED Discharge Assessment Last Done: 01/16/25 12:24
[2025-01-16 10:48] LABS: Adenovirus PCR Not Detected (NotDetected); Bordetella parapertussis PCR Not Detected (NotDetected); Bordetella pertussis PCR Not Detected (NotDetected); Chlamydia pneumoniae PCR Not Detected (NotDetected); Coronavirus 229E PCR Not Detected (NotDetected); Coronavirus CoV-2 (COVID19)PCR Not Detected (NotDetected); Coronavirus HKU1 PCR Not Detected (NotDetected); Coronavirus NL63 PCR Not Detected (NotDetected); Coronavirus OC43PCR Not Detected (NotDetected); Human Metapneumovirus PCR Not Detected (NotDetected); Influenza A (H1 2009) PCR DETECTED (NotDetected); Influenza B PCR Not Detected (NotDetected); Mycoplasma pneumoniae PCR Not Detected (NotDetected); Parainfluenza Virus 1 PCR Not Detected (NotDetected); Parainfluenza Virus 2 PCR Not Detected (NotDetected); Parainfluenza Virus 3 PCR Not Detected (NotDetected); Parainfluenza Virus 4 PCR Not Detected (NotDetected); Respiratory Syncytial VirusPCR Not Detected (NotDetected); Rhinovirus/Enterovirus PCR Not Detected (NotDetected)
[2025-01-16] MEDS ORDERED: CARBOHYDRATES FOR HYPOGLYCEMIA PO PRN (11:23)
[2025-01-16] MEDS ORDERED: GLUCOSE 40% GEL 15 GM TUBE PO PRN (11:23)
[2025-01-16] MEDS ORDERED: DEXTROSE 50% 50 ML SYRINGE IV PRN (11:23)
[2025-01-16] MEDS ORDERED: GLUCAGON FOR INJ 1 MG VIAL SQ PRN (11:23)
[2025-01-16] MEDS ORDERED: ONDANSETRON INJ 2 MG/ML 2 ML VIAL IV PRN (11:23)
[2025-01-16] MEDS ORDERED: GLUCOSE 10 TAB/TUBE PO PRN (11:23)
--- NOTE | 2025-01-16 11:50 | History & Physical Report ---
Date of Service January 16, 2025 Assessment & Plan (1) Influenza A: Plan: Assessment: 1. Acute influenza A infection. Oral Tamiflu to start stat. Respiratory toilet including nebulizers. 2. Chronic hypoxemic respiratory failure 3 L continuously of oxygen at home. This is his current requirement. Will titrate if needed. 3. History of restrictive lung disease. Follows with pulmonology as an outpatient. 4. Lactic acidosis/lactic acidemia. Repeat lactate is pending. Initially was 2.5. 5. Hypomagnesemia. 1.1. 4 g of magnesium sulfate ordered to be infused. 6. Borderline hypokalemia. Low normal at 3.5. Due to the severe hypomagnesemia will give 10 mill equivalents potassium chloride x 3. Recheck in the AM. 7. Increased shortness of breath. First troponin is reassuring. Given the patient's risk factors we will do serial troponins. He does not endorse any cardiac symptomatology other than the shortness of breath.-No chest pain excetra. 8. Obstructive sleep apnea. Supposed get a CPAP at home. This is not on for months. He still has not gotten the CPAP. He is following with pulmonology. We will do continuous pulse ox. 9. Diabetes mellitus type 2. Basal bolus insulin regimen as ordered. 10. Recent history of cellulitis right lower extremity. Currently healing well. With a recent right fibular fracture August 2024 from seizure. 11. History of seizure disorder with 2 seizures yesterday and 1 earlier this morning. Seizure precautions ordered. Stat lithium levels ordered. Stat valproic acid levels ordered. 12. History of bipolar disorder. Continue home medications. 13. 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 Follows with endocrinology. He is due for his a.m. meds. We have asked the med rec watch technician to place his home meds and will get those ordered MARTINA. I see no need for stress dose IV steroids at this time. He is normotensive if he should become hemodynamically unstable we will consider hydrocortisone IV 100 mg every 6 if necessary. At this point it is not. 14. GERD. Continue medications. 15. Microscopic hematuria. I see where his last few urinalysis he does have microscopic hematuria. He has not seen urology. Would recommend outpatient urological follow-up for evaluation of this on a MARTINA outpatient basis after he is in a well state -for consideration of cystoscopy excetra Plan: As discussed above. Please refer to orders for further planning. History of Present Illness Chief Complaint: Cough, shortness of breath Primary Care Provider: Larry Amaral MD Is a 54-year-old white male with a history of chronic hypoxemic respiratory failure with chronic oxygen dependency 3 L continuously. Over the last 36 hours he has had increased cough and increased shortness of breath. He has not had any need for increase in his oxygen requirements at home. In addition he had multiple seizures yesterday and a seizure earlier this morning he reports. He has a history of seizure disorder and he does have frequent seizures. He presented to the ER for further evaluation and treatment. In the ER he tested positive for influenza A acutely. Lactic acid was mildly elevated 2.5. Other significant laboratory studies that were abnormal including a magnesium of 1.1 and low normal potassium of 3.5. The patient was found to be mildly tachycardic and febrile in the ER. In the ER he had a liter normal saline in the nebulizer treatment. Recall admit the patient for further evaluation and treatment. We have ordered magnesium sulfate 4 g IV stat. Potassium chloride 3K riders 10 mEq each stat. We have ordered repeat stat lactic acid level. A repeat stat troponin level. A lithium level, and a Depakote level. All of these are pending at the time of this dictation. We have also ordered Tamiflu to commence immediately. Allergies Allergy/AdvReac Type Severity Reaction Status Date / Time clindamycin Allergy Intermediate SWELLING Verified 12/18/24 11:27 Iodinated Contrast Media Allergy Intermediate face/eye Verified 12/18/24 11:27 swelling Quinolones Allergy Intermediate HIVES Verified 12/18/24 11:27 Home Medications Medication Instructions Recorded Confirmed Type lithium carbonate 300 mg tablet 300 mg PO AMHS 06/04/22 12/18/24 History mirtazapine 30 mg tablet (Remeron) 30 mg PO HS 06/23/22 12/18/24 History blood sugar diagnostic (OneTouch 08/06/22 12/18/24 History Verio test strips) fluticasone propionate 50 1 spray intranasal HS PRN allergy 03/16/23 12/18/24 Rx mcg/actuation nasal symptoms #16 grams spray,suspension (Flonase Allergy Relief) [place] (flash #1 ea 05/13/23 12/18/24 Rx glucose scanning reader) rimegepant 75 mg disintegrating 75 mg PO DAILY PRN Migraine 09/14/23 12/18/24 Rx tablet (Nurtec ODT) Headache #8 tabs blood sugar diagnostic (OneTouch #150 ea 11/22/23 12/18/24 Rx Verio test strips) blood-glucose meter (OneTouch #1 ea 11/22/23 12/18/24 Rx Verio Reflect Meter) insulin syringe-needle U-100 1 mL #300 ea 11/22/23 12/18/24 Rx 30 gauge x 1/2" (BD Insulin Syringe Ultra-Fine) lancets 33 gauge (OneTouch Delica #150 ea 11/22/23 12/18/24 Rx Plus Lancet) albuterol sulfate 90 mcg/actuation 2 inh inhalation Q6H PRN shortness 02/24/24 12/18/24 Rx aerosol inhaler (Ventolin HFA) of breath or wheezing #6.7 grams metformin 1,000 mg tablet 1,000 mg PO BID #180 tabs 03/03/24 12/18/24 Rx dutasteride 0.5 mg capsule 0.5 mg PO QAM 04/06/24 12/18/24 History glucagon 3 mg/actuation nasal 3 mg intranasal ONCE PRN Severe 04/06/24 12/18/24 History spray (Baqsimi) Hypoglycemia FreeStyle Rosalie 2 Sensor (flash #6 ea 05/02/24 12/18/24 Rx glucose sensor) testosterone 2 pump topical PM #75 grams 05/04/24 12/18/24 Rx aripiprazole 5 mg tablet 5 mg PO DAILY 05/29/24 12/18/24 History nystatin 100,000 unit/gram topical 1 applic topical BID #30 grams 06/19/24 12/18/24 Rx cream insulin glargine 100 unit/mL (3 12 unit subcut HS 07/19/24 12/18/24 History mL) subcutaneous pen (Lantus Solostar U-100 Insulin) ipratropium 0.5 mg-albuterol 3 mg 3 ml inhalation QID PRN wheezing 07/31/24 12/18/24 Rx (2.5 mg base)/3 mL nebulization #90 mL soln nebulizers (Compact Compressor #1 ea 07/31/24 12/18/24 Rx Nebulizer) Botox 200 unit injection See Rx Instructions IM .COMPLEX #1 09/18/24 12/18/24 Rx (onabotulinumtoxinA) ea cholecalciferol (vitamin D3) 50 50 mcg PO QPM #90 caps 09/19/24 12/18/24 Rx mcg (2,000 unit) capsule rosuvastatin 20 mg tablet 20 mg PO QAM #90 tabs 09/19/24 12/18/24 Rx pantoprazole 40 mg tablet,delayed 40 mg PO BID #60 tabs 09/21/24 12/18/24 Rx release trazodone 100 mg tablet 100 mg PO HS 10/03/24 12/18/24 History levothyroxine 200 mcg tablet 200 mcg PO QAM #30 tabs 10/22/24 12/18/24 Rx pen needle, diabetic 32 gauge x #100 ea 10/23/24 12/18/24 Rx 5/32" (BD Vy 2nd Gen Pen Needle) bumetanide 1 mg tablet 1 mg PO QAM #30 tabs 10/26/24 12/18/24 Rx vitamin B complex (Vitamins B 1 cap PO QAM #30 caps 10/26/24 12/18/24 Rx Complex capsule) hydrocodone 7.5 mg-acetaminophen 1 tab PO Q6H 11/19/24 12/18/24 History 325 mg tablet prazosin 5 mg capsule 5 mg PO HS 11/19/24 12/18/24 History propranolol 120 mg capsule,24 120 mg PO HS 11/19/24 12/18/24 History hr,extended release tirzepatide 2.5 mg/0.5 mL 2.5 mg (0.5 mL) subcut Q7D #2 mL 11/22/24 12/18/24 Rx subcutaneous pen injector (Unruly) lorazepam 0.5 mg tablet 0.5 mg PO DAILY PRN Seizure 11/23/24 12/18/24 History Activity levetiracetam 1,000 mg tablet 1,000 mg PO Q12H #60 tabs 11/26/24 12/18/24 Rx aspirin 81 mg tablet,delayed 81 mg PO QAM #90 tabs 11/27/24 12/18/24 Rx release duloxetine 60 mg capsule,delayed 60 mg PO BID 11/27/24 12/18/24 History release ferrous sulfate 325 mg (65 mg 325 mg PO .qod 11/27/24 12/18/24 History iron) tablet desmopressin 0.2 mg tablet 0.4 mg (2 x 0.2 mg) PO BID #120 11/30/24 12/18/24 Rx tabs metoprolol succinate 25 mg 25 mg PO HS #90 tabs 11/30/24 12/18/24 Rx tablet,extended release 24 hr somatropin 5 mg/1.5 mL (3.3 mg/mL) 0.3 mg (0.09 mL) subcut QPM #2 11/30/24 12/18/24 Rx subcutaneous pen injector syringes (Norditropin FlexPro) clopidogrel 75 mg tablet (Plavix) 75 mg PO DAILY 12/03/24 12/18/24 History budesonide 0.5 mg/2 mL suspension 0.5 mg (2 mL) inhalation DAILY #60 12/04/24 12/18/24 Rx for nebulization mL lisinopril 40 mg tablet 40 mg PO DAILY #90 tabs 12/06/24 12/18/24 Rx divalproex 500 mg tablet,delayed 1,000 mg (2 x 500 mg) PO DAILY #60 12/14/24 12/18/24 Rx release tabs hydrocortisone 10 mg tablet 10 mg PO UD #135 tabs 12/19/24 Rx lacosamide 150 mg tablet 150 mg PO BID #60 tabs 12/26/24 Rx famotidine 20 mg tablet (Acid 20 mg PO DAILY 6 weeks #42 tabs 01/11/25 01/11/25 Rx Industrial Safety [employer] Technician (famotidine)) arformoterol 15 mcg/2 mL solution 2 ml inhalation BID 01/16/25 01/16/25 History for nebulization (Brovana) oxybutynin chloride 5 mg 5 mg PO DAILY 01/16/25 01/16/25 History tablet,extended release 24 hr Past Med/Surg History Problem List (Updated 01/16/25 @ 11:44 by Gamaliel Henley, PhD, DO) Influenza A LPRD (laryngopharyngeal reflux disease) Arthralgia Anti-cyclic citrullinated peptide antibody positive Restrictive lung disease Fall (Acute) Hematoma (Acute) Venous stasis ulcers (Acute) Chronic venous insufficiency (Chronic) Seizure disorder (Acute) Presbyopia of both eyes Epiretinal membrane (ERM) of left eye Ocular hypertension Secondary cataract of left eye with vision obscured Combined form of senile cataract of right eye Abnormal PFTs (pulmonary function tests) Abnormal chest CT COPD (chronic obstructive pulmonary disease) Demyelinating disease Hypertension (Acute) Secondary adrenal insufficiency Pituitary hypogonadism Follows with endocrinology- Pituitary hypothyroidism Follows with endocrinology- Non-occlusive coronary artery disease Lumbar stenosis with neurogenic claudication Esophageal dysphagia Anxiety (Chronic) Mitral regurgitation Essential tremor Idiopathic polyneuropathy Arachnoid cyst of posterior cranial fossa Obstructive sleep apnea (Acute) Mixed hyperlipidemia Ulcerative colitis Anemia (Acute) Bipolar disorder (10/11/22) Chronic migraine without aura or status migrainosus Uncontrolled type 2 diabetes mellitus with hyperglycemia Suspect low glycation index meaning his A1c is typically about 2 points lower than what his average glucose would suggest. Current use of proton pump inhibitor Severe obesity (BMI 35.0-35.9 with comorbidity) 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 Growth hormone deficiency Depression BPH with obstruction/lower urinary tract symptoms Medical History Presence of Watchman left atrial appendage closure device Status epilepticus (09/13/24) Knee hemarthrosis, right (09/13/24) Acute on chronic anemia (09/13/24) Acute metabolic encephalopathy (09/13/24) Acute hypoxic respiratory failure (09/13/24) Laceration of toe of right foot Closed fracture of right fibula with malunion Type 2 diabetes mellitus Right fibular fracture Acute on chronic respiratory failure with hypoxia and hypercapnia Shortness of breath Acute hypercapnic respiratory failure Acute hypercapnic respiratory failure Chronic respiratory failure with hypoxia Obesity CKD (chronic kidney disease), stage III Peripheral edema Seizure disorder Atrial fibrillation (02/15/24) Chronic low back pain Panhypopituitarism Lumbosacral radiculopathy Toxic encephalopathy Chest pain Acute dyspnea Acute CHF Hypoglycemia Syncope and collapse Internal hemorrhoids Recurrent seizures Pituitary diabetes insipidus Spondylolysis, lumbar region Right lumbar radiculopathy HTN (hypertension) Bipolar disorder Adrenal insufficiency Pituitary adenoma Diabetes Bleeding (02/16/24) Acute blood loss anemia (02/19/24) Hyperactive gag reflex BRCA gene positive Family history of BRCA gene mutation PTSD (post-traumatic stress disorder) Epidural lipomatosis Chronic left sacroiliac pain Benzodiazepine overdose Presence of cardiac device Hx of fracture of foot Fracture of fibula, right, closed Cerebral concussion Orthostatic hypotension Pseudoseizures Sensorineural hearing loss of both ears Rectal bleeding History of COVID-19 Mitral valve regurgitation Vertigo Panhypopituitarism Lower extremity edema Elevated LFTs Bilateral hand pain Pituitary neoplasm Kidney stones Prostate mass Bladder mass Obstructive sleep apnea of adult Surgical History S/P TURP (status post transurethral resection of prostate) History of lumbar fusion History of cardiac cath S/P epidural steroid injection History of lithotripsy Status post right foot surgery History of bladder surgery History of prostate surgery History of colonoscopy History of esophagogastroduodenoscopy (EGD) History of tooth extraction History of wisdom tooth extraction History of brain surgery Family History Grandmother (Paternal) Family history of diabetes mellitus Aunt Family history of diabetes mellitus Uncle Family history of diabetes mellitus Father Prostate cancer Heart disease Osteoarthritis Mother Cardiac disorder Grandmother (Maternal) Myocardial infarction Other Asthma Cancer Hypertension No family history of adverse response to anesthesia No family history of bleeding disorder Stroke Denies family history of Ovarian cancer Breast cancer Colorectal cancer Social History Smoking Status: Never smoker Tobacco Type: Smokeless Tobacco (Dip or Chew) Second Hand Exposure: No; Do You Dip or Chew Tobacco: No; Hx Alcohol Use: Yes Alcohol type: beer Alcohol Intake Frequency: Never Hx Substance Use: No Preferred Language: Ukrainian Communication Ability: Effective Communication Ability Comment: Unable to obtain due to patient condition. Visual Impairment: Limited Hearing Ability: Normal Hardware Supplies Sales Representative Required: No Beliefs That Will Affect Care: None marital status: Single Current Living Situation: Spouse and Family Current Living Situation Comment: and daughter current occupational status: disabled How many Children do You have: 3 How many Children do You have Comment: able to assist with care if needed Feels Safe at Home: Yes Childhood Exposure to Second-Hand Smoke: Yes (parents smoked) Diet: regular Diet Comment: going to be starting low carb/low calorie diet. caffeine: No (1/2 20 oz bottle of mountain dew. ) during the past year weight has: increased > 10 lbs Physical Activity Frequency: Daily Physical Activity Frequency Comment: walking, 1.5 miles daily. Seatbelt Use: always Do you think of yourself as: straight/heterosexual Gender Identity: Male Assistive Devices: Crutches and Oxygen - Continuous Review of Systems Review of Systems: A 10 point review of system was obtained and unless otherwise stated here or in history of present illness are negative and noncontributory to chief complaint. Physical Exam Physical Exam: In General: In general 54-year-old male is alert and oriented x 3. He has a significantly flat affect which according to nursing staff and known from before his appears to be patient's baseline. He denies any symptoms except his increase shortness of breath and cough. HEENT: Normocephalic atraumatic pupils are equal round and reactive to light bilaterally. No scleral icterus no conjunctival injection external auditory canals are patent septum is in the midline nose is without discharge oral mucosa is pink and moist without lesion. NECK: Supple no rigidity no lymphadenopathy no thyromegaly no carotid bruits no JVD no masses. HEART: Regular rate and rhythm I do not appreciate any ectopy or rub. No murmur. LUNGS: Coarse bilaterally with expiratory wheezing and occasional rhonchi. Chest x-ray is negative for acute infiltrate. ABDOMEN: Soft nontender, no rebound, no peritoneal signs, positive bowel sounds, no appreciable organomegaly. EXTREMITIES: Intact, no peripheral cyanosis, clubbing or edema. Strength is adequate x 4. The patient again is very flat affect and really not able to fully participate in exam as he is not feeling well currently. NEUROLOGICAL: Cranial nerves II through XII are grossly intact with no focal deficit elicited upon examination. Results & Data Results & Data Vital Signs (Past 12 Hours) Vital Signs Temp Pulse Pulse Resp BP BP Pulse Ox 01/16/25 09:38 104 H 30 H 97 01/16/25 09:19 38.1 C H 106 H 31 H 158/83 H 97 01/16/25 09:19 97 01/16/25 09:19 01/16/25 09:19 38.1 C H 106 H 31 H 158/83 H 97 01/16/25 09:17 109 H O2 Del Method O2 Flow Rate 01/16/25 09:38 Nasal Cannula 3 01/16/25 09:19 Nasal Cannula 3 01/16/25 09:19 Nasal Cannula 3 01/16/25 09:19 Nasal Cannula 3 01/16/25 09:19 Nasal Cannula 3 01/16/25 09:17 Code Status & VTE Plan Code Status DNR/DNI. This was his wishes on last admission. Will reconfirm with patient at bedside under no circumstances would he want CPR defibrillation or mechanical ventilation therefore per his wishes he is listed as a DNR/DNI. VTE Prophylaxis Plan VTE Prophylaxis will be ordered: Yes PG Care Time/CCT Total # of Minutes Spent Total Time Spent with Patient: Total time spent is greater than 50% in coordination of care (as documented) at patient's floor/unit and/or counseling patient: Coding Level of Care Code 30254 INT INP/OBS CARE 375MIN Diagnoses Influenza A J10.1
[2025-01-16 12:19] LABS: Lithium < 0.1 mmol/L (0.6-1.2); Valproic Acid 86 mcg/ml (50-100)
[2025-01-16] MEDS ORDERED: FLUTICASONE PROPIONATE NA SPR 16 GM BTL PRN (12:23)
[2025-01-16] MEDS: MAGNESIUM SULFATE / D5W 1 GM/100 ML BAG IV SCH (12:41)
[2025-01-16] MEDS: POTASSIUM CHLORIDE / WTR 10 MEQ/100 ML PLCT IV SCH (12:41)
[2025-01-16] MEDS: HYDROCORTISONE 10 MG TAB PO SCH ×2 (13:36→20:53)
[2025-01-16] MEDS: LACOSAMIDE 50 MG TABLET PO SCH (13:36)
[2025-01-16] MEDS: DIVALPROEX DELAY RELEASE 500 MG TAB PO SCH (13:38)
[2025-01-16] MEDS: DESMOPRESSIN ACETATE 0.1 MG TAB PO SCH (13:38)
[2025-01-16] MEDS: ASPIRIN 81 MG ECTAB PO SCH (13:39)
[2025-01-16] MEDS: lisinopril 40 MG TAB PO SCH (13:39)
[2025-01-16] MEDS: ARIPiprazole 5 MG TAB PO SCH (13:39)
[2025-01-16] MEDS: DULoxetine HCL 60 MG CAP PO SCH (13:40)
[2025-01-16] MEDS: CLOPIDOGREL BISULFATE 75 MG TAB PO SCH (13:41)
[2025-01-16] MEDS: FAMOTIDINE 20 MG TAB PO SCH (13:41)
[2025-01-16] MEDS: BUMETANIDE 1 MG TAB PO SCH (13:42)
[2025-01-16] MEDS: OXYBUTYNIN CHLORIDE XL 5 MG TABCR PO SCH (13:42)
[2025-01-16] MEDS: FINASTERIDE 5 MG TAB PO SCH (13:42)
[2025-01-16] MEDS: levETIRAcetam 500 MG TAB PO SCH (13:43)
[2025-01-16] MEDS: INSULIN ASPART PER UNIT CHARGE SC SCH (13:49)
[2025-01-16] MEDS: BUDESONIDE 0.5 MG/2 ML VIAL (PULMICORT) INH SCH (14:35)
[2025-01-16] MEDS: OSELTAMIVIR PHOSPHATE 75 MG CAP PO ONE (15:43)
[2025-01-16] MEDS: HYDROCODONE/ACETAMINOPHEN 7.5/325MG TAB PO SCH (18:51)
[2025-01-16] MEDS: FORMOTEROL 20 MCG/2 ML VIAL INH SCH (20:08)
[2025-01-16] MEDS: LITHIUM CARBONATE 300 MG TAB PO SCH (20:54)
[2025-01-16] MEDS: OSELTAMIVIR PHOSPHATE 75 MG CAP PO SCH (20:55)
[2025-01-16] MEDS: METOPROLOL SUCC 25MG EXT REL TAB PO SCH (20:55)
[2025-01-16] MEDS: PRAZOSIN HCL 1 MG CAP PO SCH (20:55)
[2025-01-16] MEDS: PROPRANOLOL HCL 60 MG LA CAP PO SCH (20:56)
[2025-01-16] MEDS: traZODone HCL 100 MG TAB PO SCH (20:56)
[2025-01-16] MEDS: LANTUS PER UNIT CHARGE SQ SCH (21:36)
[2025-01-16] MEDS: NYSTATIN CR 15 GM TUBE EXT SCH (21:39)
[2025-01-17] MEDS: LORazepam 2 MG/1 ML VIAL ONE ×2 (02:46→06:19)
[2025-01-17] MEDS: levETIRAcetam 500 MG/5 ML VIAL IV STA (03:06)
[2025-01-17] MEDS: HYDROCORTISONE SOD SUCCINATE 100 MG/2 ML VIAL ONE ×2 (03:06→03:09)
[2025-01-17] MEDS: MAGNESIUM SULFATE / D5W 1 GM/100 ML BAG IV SCH (03:13)
[2025-01-17 03:48] LABS: Alanine Aminotransferase 22 U/L (7-52); Albumin Globulin Ratio 2.1 (0.9-2); Albumin Level 3.7 gm/dl (3.4-5.0); Alkaline Phosphatase 43 U/L (34-104); Anion Gap 21 (3-11); Aspartate Aminotransferase 18 U/L (13-39); Bilirubin,Total 0.6 mg/dl (0.2-1.0); Blood Urea Nitrogen 19 mg/dl (6-23); Calcium 8.3 mg/dl (8.6-10.3); Carbon Dioxide 23 mmol/L (21-32); Chloride 92 mmol/L (98-107); Chol HDL Ratio 3.6 (0-5); Cholesterol 130 mg/dl (0-200); Creatinine Clr Calc Pharmacy 51.3 ml/min; Globulin 1.8 gm/dl (2.5-4.0); Glucose 144 mg/dl (70-99(Fasting)); HDL Cholesterol 36 mg/dl; LDL Cholesterol Calculated 59 mg/dl; Potassium 3.9 mmol/L (3.5-5.1); Sodium 136 mmol/L (136-145); Thyroid Stimulating Hormone < 0.010 uIu/ml (0.300-4.500); Total Protein 5.5 gm/dl (6.0-8.3); Triglycerides 177 mg/dl (0-150); VLDL Cholesterol 35 mg/dl (0-30)
[2025-01-17 03:52] LABS: Basophils # (auto) 0.04 K/uL (0.00-0.20); Basophils % (auto) 0.4 %; Eosinophils # (auto) 0.05 K/uL (0.00-0.50); Eosinophils % (auto) 0.5 %; Hematocrit (blood only) 37.1 % (42.0-52.0); Hemoglobin 11.6 g/dl (14.0-18.0); Immature Granulocytes # (auto) 0.13 K/uL (0.01-0.20); Immature Granulocytes % (auto) 1.2 %; Lymphocytes # (auto) 1.21 K/uL (1.20-3.40); Lymphocytes % (auto) 11.4 %; Mean Corpuscular Hemoglobin 29.2 pg (25.0-34.0); Mean Corpuscular Hgb Conc 31.3 g/dL (32.0-36.0); Mean Corpuscular Volume 93.5 fL (80.0-100.0); Mean Platelet Volume 8.6 fL (9.4-12.4); Monocytes # (auto) 1.03 K/uL (0.11-0.59); Monocytes % (auto) 9.7 %; Neutrophils # (auto) 8.11 K/uL (1.40-6.50); Neutrophils % (auto) 76.8 %; Platelet Count 119 K/uL (130-400); RDW Coefficient of Variation 14.8 % (11.5-14.5); RDW Standard Deviation 50.8 fL (36.4-46.3); Red Blood Count 3.97 M/uL (4.70-6.10); White Blood Count 10.57 K/ul (4.8-10.8)
--- NOTE | 2025-01-17 04:25 | XRay Report ---
EXAM: XR chest 1V portable CLINICAL HISTORY: seizure TECHNIQUE: An X-ray image of the chest is obtained in AP projection. COMPARISON: No prior studies are available for comparison. FINDINGS: Pulmonary Parenchyma: Prominent both maureen with perihilar and basal accentuated broncho vascular markings with possible right lower lung zone infiltrates suggesting ongoing infectious process. Minimal blunting of the left costophrenic angle suggesting minimal left-sided pleural effusion. No evidence of pleural effusion or pleural thickening. Heart and Mediastinum: Heart size can not be assessed due the AP projection. No mediastinal widening or masses. No hilar or mediastinal lymphadenopathy. Bony Thorax: Bony thorax appears intact without fractures or deformities. Soft Tissues: Soft tissues overlying the chest wall are unremarkable. IMPRESSION: Prominent both maureen with perihilar and basal accentuated broncho vascular markings with possible right lower lung zone infiltrates suggesting ongoing infectious/inflammatory process. please correlate clinically. Minimal blunting of the left costophrenic angle suggesting minimal left-sided pleural effusion. Electronically signed by Tone Rodriguez 01-17-2025 04:25 AM
[2025-01-17] MEDS: SODIUM CHLOR 7% 4 ML NEB NEB ONE (04:27)
[2025-01-17] MEDS: ALBUT/IPRATROP 3MG/0.5MG NEB 3 ML VIAL NEB PRN (04:35)
[2025-01-17] MEDS ORDERED: VANCOMYCIN CONSULT ACTIVE PRN (04:43)
[2025-01-17] MEDS: VANCOMYCIN HCL 2,500 MG in SODIUM CHLORIDE 0.9% 500 ML IV STA (05:43)
[2025-01-17] MEDS: PIPERACILLIN/TAZOBACTAM 4.5 GM/100 ML BAG IV STA (06:18)
[2025-01-17] MEDS: LORazepam 2 MG/1 ML VIAL IV PRN (06:29)
--- NOTE | 2025-01-17 06:54 | Hospitalist Progress Note ---
Date of Service January 17, 2025 Assessment & Plan (1) Acute hypoxic respiratory failure: (2) Influenza A: (3) Seizure disorder: Plan #Acute influenza A infection +/- aspiration pneumonia -Possible aspiration pneumonia occurred 01/16 overnight with seizure activity. On empiric treatment pip-tazo 4.5g IV q8h -01/17 CXR showed possible right lower lung zone infiltrates suggesting ongoing infectious/inflammatory process. and minimal left-sided pleural effusion, compared with 01/16 showing mild CHF, no effusion, consolidation -Oral Tamiflu started -Respiratory toilet including nebulizers. #Acute hypoxemia respiratory failure -3 L continuously of oxygen at home -Was on BiPAP this morning, currently on nasal cannula -Etiology likely from restrictive lung disease d/t obesity/BMI 38.8 exacerbated by acute influenza infection and possible aspiration pneumonia -Blood cx pending #Lactic acidosis/lactic acidemia -Repeat lactate is pending -Initially was 2.5 -VBG pH 7.32, pCO2 56, O2 27, HCO3 29 #Seizure disorder - 2 seizures 01/15 and 1 01/16 AM. Overnight 2 seizures. - Seizure precautions ordered -01/17 Li 0.2 -01/17 valproic acid 86 -01/17 EEG showed no focal abnormalities, potentially epileptogenic discharges, or abnormal slow activity. - Continue Keppra 1000mg PO Q12h -With seizure activity, page resident stat #Hypomagnesemia -1.1 on admission --> 2.0 -4 g of magnesium sulfate ordered -Resolved #Borderline hypokalemia -Low normal at 3.5 on admission -Due to the severe hypomagnesemia was given 10 mill equivalents potassium chloride x 3 #Increased shortness of breath -First troponin was reassuring. -On admission did not endorse any cardiac symptomatology other than the shortness of breath. No chest pain etc -01/17 troponin 13.7 #Obstructive sleep apnea -Supposed get a CPAP at home. This is not on for months. He still has not gotten the CPAP. -He is following with pulmonology. -We will do continuous pulse ox. #Recent hx of cellulitis right lower extremity. -Currently healing well. With a recent right fibular fracture August 2024 from seizure. #Panhypopituitary -Follows with endocrinology. -He is normotensive if he should become hemodynamically unstable we will consider hydrocortisone IV 100 mg every 6 if necessary #Microscopic hematuria - He has not seen urology. Would recommend outpatient urological follow-up for evaluation Chronic stable diagnoses: #GERD- Continue medications. #Bipolar disorder- Continue home medications. #Diabetes mellitus type 2- Basal bolus insulin regimen ordered on admission. #History of restrictive lung disease-Follows with pulmonology as an outpatient. #A fib- With watchman device and plavix + aspirin. Admission and Anticipated Discharge Date Admission Date: January 16, 2025 Supervising Physician Co-Signing Physician Notes I personally examined the patient and verified all tinoco points of history and exam, discussed case, and agree with decision making with Dr Shannon and Bonita Rutherford feeling bad breathing bad coughing a lot - but also feeling a little better than this mronign vitals noted fatigued and mildly tachypnic. lungs coarse rhonchi throughout. mild accessory mucsles. awake and able to converse although quite fatigued but this appears to be an improvement from earlier acute hypoxic respiratory failure and acute kidney failure - flu and likely secondary pneumonia (?CAP vs aspiration) - continue abx, antivirals, supportive care. this is superimposed on chronic respiratory failure due to CORINA/OHS restrictive lung disease. DVT proph -lovenox Subjective This morning Waldo was somnolent and unable to fully converse. Nursing reported that he had 2 seizures/pseudoseizures around 3am and 6am. He said that he's had a seizure disorder since his teens. Unable to complete ROS. Review of Systems Review of Systems: As per HPI. Physical Exam Physical Exam: General:Somnolent, no acute distress, minimally responsive. Cardio: Regular rate and rhythm Resp:Wheeze and crackling R >L. GI: Soft and nontender, nondistended. Skin: Warm, pink, clammy. Facial flushing Results & Data Results & Data Vital Signs (Past 12 Hours) Vital Signs Temp Pulse Pulse Pulse Resp BP BP 01/17/25 06:24 01/17/25 05:41 36.6 C 01/17/25 05:37 92 H 22 89/63 L 01/17/25 04:39 92 H 24 94/63 L 01/17/25 04:27 91 H 18 01/17/25 04:18 92 H 21 92/48 L 01/17/25 04:00 94 H 19 92/71 L 01/17/25 03:30 96 H 21 65/54 L 01/17/25 03:03 97 H 23 98/61 L 01/17/25 02:57 94 H 22 113/58 L 01/17/25 02:48 96 H 27 H 83/54 L 01/17/25 02:44 76/49 L 01/17/25 01:45 99 H 23 105/68 01/16/25 22:40 81 24 94/43 L 01/16/25 20:09 91 H 18 01/16/25 19:58 36.6 C 89 21 126/81 01/16/25 19:15 92 H 31 H Pulse Ox O2 Del Method O2 Flow Rate 01/17/25 06:24 Oxymask 10 01/17/25 05:41 01/17/25 05:37 93 Oxymask 10 01/17/25 04:39 95 01/17/25 04:27 98 Non-rebreather 15 01/17/25 04:18 100 01/17/25 04:00 100 Oxymask 10 01/17/25 03:30 100 Non-rebreather 10 01/17/25 03:03 99 Non-rebreather 10 01/17/25 02:57 100 Non-rebreather 10 01/17/25 02:48 97 Non-rebreather 10 01/17/25 02:44 01/17/25 01:45 99 Nasal Cannula 5 01/16/25 22:40 97 Nasal Cannula 5 01/16/25 20:09 94 Nasal Cannula 5 01/16/25 19:58 94 Nasal Cannula 5 01/16/25 19:15 93 Nasal Cannula 5 Resident Activity Tracking Resident Involvement: Resident Care Provided Care Provided: Adult Hospital Medicine Resident Supervision Co-Signing Physician Notes I have personally examined this patient and agree with student doctor Thong with exceptions/elaborations noted below: Pt admitted for influenza A/resp distress. Lactate yesterday 2.5 and 1L NS given. Overnight had 2 possible seizure or seizure like episodes. Pt received multiple bags of magnesium last night as well as depakote loading dose and 2 mg Ativan ordered at 3 am but per system not given until 6:30 am, shortly before I saw him and he was quite sedated then but responsive to voice. VBG ordered and showed acidosis and CO2 slightly elevated. Concern for aspiration based on new CXR findings this morning. Pt was placed on bipap with improvement in resp status/acidosis and able to wean off to NC. No seizures noted throughout the morning. Continue antibiotics for possible aspiration pneumonia. Baseline O2 use 3L at home for his restrictive lung disease. Creatinine worsened from 1.18 yesterday to 2.11 today, QUENTIN. 1L NSS given last night, will hold off on further as he eats/drinks today. May add PT/OT evals tomorrow/Tuesday, defer today due to acute illness. A fib with watchman device and plavix + aspirin.
[2025-01-17] MEDS: LORazepam 2 MG/1 ML VIAL IV STA (07:20)
[2025-01-17] MEDS: LEVOTHYROXINE SODIUM 200 MCG TABLET PO SCH (07:37)
[2025-01-17 08:37] LABS: Base Excess VBG 1.6 mEq/L; HCO3 VBG 29 mmol/L; Oxygen Saturation VBG < 60.0 %; PCO2 VBG 56 mmHg (38-50); PO2 VBG 27 mmHg; pH VBG 7.32 (7.36-7.41)
[2025-01-17] MEDS: ROSUVASTATIN CALCIUM 20 MG TAB PO SCH (08:40)
[2025-01-17 09:01] LABS: Estimated Average Glucose 126 mg/dl
[2025-01-17 10:49] LABS: Base Excess ABG -0.2 mEq/L (-9-1.8); HCO3 ABG 25 mmol/L (19-24); Oxygen Saturation ABG 99.5 % (90-95); PCO2 ABG 41 mmHg (35-46); PO2 ABG 141 mmHg (80-95); pH ABG 7.39 (7.35-7.45)
[2025-01-17 10:50] LABS: Allen Test Pos (Pos)
--- NOTE | 2025-01-17 11:27 | Electroencephalogram ---
EEG Procedure Note Date of Service January 17, 2025 Start / End Times Start Time: 1035 End Time: 1055 Referring Physician Felix Carroll History 54-year-old with history of seizure-like activity and seizures/pseudoseizures. Home Medication List Medication Instructions Recorded Confirmed Type lithium carbonate 300 mg tablet 300 mg PO AMHS 06/04/22 01/16/25 History mirtazapine 30 mg tablet (Remeron) 30 mg PO HS 06/23/22 01/16/25 History blood sugar diagnostic (OneTouch 08/06/22 12/18/24 History Verio test strips) fluticasone propionate 50 1 spray intranasal HS PRN allergy 03/16/23 01/16/25 Rx mcg/actuation nasal symptoms #16 grams spray,suspension (Flonase Allergy Relief) FreeStyle Rosalie 2 [place] (flash #1 ea 05/13/23 12/18/24 Rx glucose scanning reader) rimegepant 75 mg disintegrating 75 mg PO DAILY PRN Migraine 09/14/23 01/16/25 Rx tablet (Nurtec ODT) Headache #8 tabs blood sugar diagnostic (OneTouch #150 ea 11/22/23 12/18/24 Rx Verio test strips) blood-glucose meter (OneTouch #1 ea 11/22/23 12/18/24 Rx Verio Reflect Meter) insulin syringe-needle U-100 1 mL #300 ea 11/22/23 12/18/24 Rx 30 gauge x 1/2" (BD Insulin Syringe Ultra-Fine) lancets 33 gauge (OneTouch Delica #150 ea 11/22/23 12/18/24 Rx Plus Lancet) albuterol sulfate 90 mcg/actuation 2 inh inhalation Q6H PRN shortness 02/24/24 01/16/25 Rx aerosol inhaler (Ventolin HFA) of breath or wheezing #6.7 grams metformin 1,000 mg tablet 1,000 mg PO BID #180 tabs 03/03/24 01/16/25 Rx dutasteride 0.5 mg capsule 0.5 mg PO QAM 04/06/24 01/16/25 History glucagon 3 mg/actuation nasal 3 mg intranasal ONCE PRN Severe 04/06/24 01/16/25 History spray (Baqsimi) Hypoglycemia FreeStyle Rosalie 2 Sensor (flash #6 ea 05/02/24 12/18/24 Rx glucose sensor) testosterone 2 pump topical PM #75 grams 05/04/24 01/16/25 Rx aripiprazole 5 mg tablet 5 mg PO DAILY 05/29/24 01/16/25 History nystatin 100,000 unit/gram topical 1 applic topical BID #30 grams 06/19/24 01/16/25 Rx cream insulin glargine 100 unit/mL (3 12 unit subcut HS 07/19/24 01/16/25 History mL) subcutaneous pen (Lantus Solostar U-100 Insulin) ipratropium 0.5 mg-albuterol 3 mg 3 ml inhalation QID PRN wheezing 07/31/24 01/16/25 Rx (2.5 mg base)/3 mL nebulization #90 mL soln nebulizers (Compact Compressor #1 ea 07/31/24 12/18/24 Rx Nebulizer) Botox 200 unit injection See Rx Instructions IM .COMPLEX #1 09/18/24 01/16/25 Rx (onabotulinumtoxinA) ea cholecalciferol (vitamin D3) 50 50 mcg PO QPM #90 caps 09/19/24 01/16/25 Rx mcg (2,000 unit) capsule rosuvastatin 20 mg tablet 20 mg PO QAM #90 tabs 09/19/24 01/16/25 Rx pantoprazole 40 mg tablet,delayed 40 mg PO BID #60 tabs 09/21/24 01/16/25 Rx release trazodone 100 mg tablet 100 mg PO HS 10/03/24 01/16/25 History levothyroxine 200 mcg tablet 200 mcg PO QAM #30 tabs 10/22/24 01/16/25 Rx pen needle, diabetic 32 gauge x #100 ea 10/23/24 12/18/24 Rx 5/32" (BD Vy 2nd Gen Pen Needle) bumetanide 1 mg tablet 1 mg PO QAM #30 tabs 10/26/24 01/16/25 Rx vitamin B complex (Vitamins B 1 cap PO QAM #30 caps 10/26/24 01/16/25 Rx Complex capsule) hydrocodone 7.5 mg-acetaminophen 1 tab PO Q6H 11/19/24 01/16/25 History 325 mg tablet prazosin 5 mg capsule 5 mg PO HS 11/19/24 01/16/25 History propranolol 120 mg capsule,24 120 mg PO HS 11/19/24 01/16/25 History hr,extended release tirzepatide 2.5 mg/0.5 mL 2.5 mg (0.5 mL) subcut Q7D #2 mL 11/22/24 01/16/25 Rx subcutaneous pen injector ([place]) lorazepam 0.5 mg tablet 0.5 mg PO DAILY PRN Seizure 11/23/24 01/16/25 History Activity levetiracetam 1,000 mg tablet 1,000 mg PO Q12H #60 tabs 11/26/24 01/16/25 Rx aspirin 81 mg tablet,delayed 81 mg PO QAM #90 tabs 11/27/24 01/16/25 Rx release duloxetine 60 mg capsule,delayed 60 mg PO BID 11/27/24 01/16/25 History release ferrous sulfate 325 mg (65 mg 325 mg PO .qod 11/27/24 01/16/25 History iron) tablet desmopressin 0.2 mg tablet 0.4 mg (2 x 0.2 mg) PO BID #120 11/30/24 01/16/25 Rx tabs metoprolol succinate 25 mg 25 mg PO HS #90 tabs 11/30/24 01/16/25 Rx tablet,extended release 24 hr somatropin 5 mg/1.5 mL (3.3 mg/mL) 0.3 mg (0.09 mL) subcut QPM #2 11/30/24 01/16/25 Rx subcutaneous pen injector syringes (Norditropin FlexPro) clopidogrel 75 mg tablet (Plavix) 75 mg PO DAILY 12/03/24 01/16/25 History budesonide 0.5 mg/2 mL suspension 0.5 mg (2 mL) inhalation DAILY #60 12/04/24 01/16/25 Rx for nebulization mL lisinopril 40 mg tablet 40 mg PO DAILY #90 tabs 12/06/24 01/16/25 Rx divalproex 500 mg tablet,delayed 1,000 mg (2 x 500 mg) PO DAILY #60 12/14/24 01/16/25 Rx release tabs hydrocortisone 10 mg tablet 10 mg PO UD #135 tabs 12/19/24 01/16/25 Rx lacosamide 150 mg tablet 150 mg PO BID #60 tabs 12/26/24 01/16/25 Rx famotidine 20 mg tablet (Acid 20 mg PO DAILY 6 weeks #42 tabs 01/11/25 01/16/25 Rx Patient Accounting Representative (famotidine)) arformoterol 15 mcg/2 mL solution 2 ml inhalation BID 01/16/25 01/16/25 History for nebulization (Brovana) oxybutynin chloride 5 mg 5 mg PO DAILY 01/16/25 01/16/25 History tablet,extended release 24 hr Inpatient Medication List Hydrocodone Bitart/Acetaminophen (Hydrocodone/Acetaminophen 7.5/325mg Tab) 1 tab PO Q6 [facility] Stop: 01/30/25 17:59 Last Admin: 01/17/25 06:30 Dose: Not Given Documented By: Admin: 01/17/25 00:38 Dose: 1 tab Documented By: Admin: 01/16/25 18:51 Dose: 1 tab Documented By: JULISA Albuterol (Albut/Ipratrop 3mg/0.5mg Neb 3 Ml Vial) 3 ml NEB Q6R PRN; Protocol PRN Reason: Shortness Of Breath Or Wheezing Stop: 02/16/25 04:02 Last Admin: 01/17/25 04:35 Dose: 3 ml Documented By: HARRY Aripiprazole (Aripiprazole 5 Mg Tab) 5 mg PO DAILY [facility] Stop: 02/15/25 12:22 Last Admin: 01/17/25 08:35 Dose: Not Given Documented By: Admin: 01/16/25 13:39 Dose: 5 mg Documented By: GONZALO Aspirin (Aspirin 81 Mg Ectab) 81 mg PO QAM [facility] Stop: 02/15/25 12:22 Last Admin: 01/17/25 08:36 Dose: Not Given Documented By: Admin: 01/16/25 13:39 Dose: 81 mg Documented By: GONZALO Budesonide (Budesonide 0.5 Mg/2 Ml Vial (Pulmicort)) 0.5 mg INH DAILY@0700 [facility] Stop: 02/15/25 12:22 Last Admin: 01/17/25 07:16 Dose: 0.5 mg Documented By: Admin: 01/16/25 14:35 Dose: Not Given Documented By: CODY(2) Bumetanide (Bumetanide 1 Mg Tab) 1 mg PO QAM [facility] Stop: 02/15/25 12:22 Last Admin: 01/17/25 08:38 Dose: Not Given Documented By: [facility] Admin: 01/16/25 13:42 Dose: 1 mg Documented By: GONZAOL Clopidogrel Bisulfate (Clopidogrel Bisulfate 75 Mg Tab) 75 mg PO DAILY [facility] Stop: 02/15/25 12:22 Last Admin: 01/17/25 08:38 Dose: Not Given Documented By: [facility] Admin: 01/16/25 13:41 Dose: 75 mg Documented By: GONZALO Desmopressin Acetate (Desmopressin Acetate 0.1 Mg Tab) 0.4 mg PO BID [facility] Stop: 02/15/25 12:22 Last Admin: 01/17/25 08:38 Dose: Not Given Documented By: [facility] Admin: 01/16/25 20:50 Dose: 0.4 mg Documented By: Admin: 01/16/25 13:38 Dose: 0.4 mg Documented By: GONZALO Divalproex Sodium (Divalproex Delay Release 500 Mg Tab) 1,000 mg PO DAILY [facility] Stop: 02/15/25 12:22 Last Admin: 01/17/25 08:38 Dose: Not Given Documented By: [facility] Admin: 01/16/25 13:38 Dose: 1,000 mg Documented By: GONZALO Duloxetine HCl (Duloxetine Hcl 60 Mg Cap) 60 mg PO BID [facility] Stop: 02/15/25 12:22 Last Admin: 01/17/25 08:38 Dose: Not Given Documented By: [facility] Admin: 01/16/25 20:53 Dose: 60 mg Documented By: Admin: 01/16/25 13:40 Dose: 60 mg Documented By: GONZALO Famotidine (Famotidine 20 Mg Tab) 20 mg PO DAILY [facility] Stop: 02/15/25 12:22 Last Admin: 01/17/25 08:38 Dose: Not Given Documented By: [facility] Admin: 01/16/25 13:41 Dose: 20 mg Documented By: GONZALO Finasteride (Finasteride 5 Mg Tab) [facility] [place]: 02/15/25 12:44 Last Admin: 01/17/25 08:38 Dose: Not Given Documented By: [facility] Admin: 01/16/25 13:42 Dose: 5 mg Documented By: GONZALO Formoterol Fumarate (Formoterol 20 Mcg/2 Ml Vial) 20 mcg INH BIDR [facility] Stop: 02/15/25 18:59 Last Admin: 01/17/25 07:16 Dose: 20 mcg Documented By: Admin: 01/16/25 20:08 Dose: 20 mcg Documented By: HARRY Hydrocortisone (Hydrocortisone 10 Mg Tab) 20 mg PO QAM [facility] Stop: 02/15/25 12:14 Last Admin: 01/17/25 08:38 Dose: Not Given Documented By: Admin: 01/16/25 13:36 Dose: 20 mg Documented By: GONZALO Hydrocortisone (Hydrocortisone 10 Mg Tab) 10 mg PO QPM [facility] Stop: 02/15/25 20:59 Last Admin: 01/16/25 20:53 Dose: 10 mg Documented By: LEONORW Insulin Aspart (Insulin Aspart Per Unit Charge) 0 units SC ACHS [facility] Stop: 02/15/25 11:29 Last Admin: 01/17/25 07:44 Dose: Not Given Documented By: Admin: 01/16/25 21:20 Dose: Not Given Documented By: LEONORW Co-signed By: ANNE Admin: 01/16/25 17:10 Dose: Not Given Documented By: ASW Co-signed By: RUSTY Admin: 01/16/25 13:49 Dose: Not Given Documented By: GONZALO Insulin Glargine (Lantus Per Unit Charge) 5 units SQ BID [facility] Stop: 02/15/25 20:59 Last Admin: 01/17/25 10:08 Dose: Not Given Documented By: Admin: 01/16/25 21:36 Dose: 5 units Documented By: ASW Co-signed By: CON Lacosamide (Lacosamide 50 Mg Tablet) 150 mg PO BID [facility] Stop: 02/15/25 12:44 Last Admin: 01/17/25 08:39 Dose: Not Given Documented By: Admin: 01/16/25 21:36 Dose: 150 mg Documented By: Admin: 01/16/25 13:36 Dose: 150 mg Documented By: GONZALO Levetiracetam (Levetiracetam 500 Mg Tab) 1,000 mg PO Q12 [facility] Stop: 02/15/25 12:22 Last Admin: 01/17/25 08:39 Dose: Not Given Documented By: Admin: 01/16/25 20:53 Dose: 1,000 mg Documented By: Admin: 01/16/25 13:43 Dose: 1,000 mg Documented By: GONZALO Levothyroxine Sodium (Levothyroxine Sodium 200 Mcg Tablet) 200 mcg PO DAILYBB [facility] Stop: 02/16/25 06:29 Last Admin: 01/17/25 07:37 Dose: Not Given Documented By: ADAN Lisinopril (Lisinopril 40 Mg Tab) 40 mg PO DAILY [facility] Stop: 02/15/25 12:22 Last Admin: 01/17/25 08:39 Dose: Not Given Documented By: Admin: 01/16/25 13:39 Dose: 40 mg Documented By: GONZALO [place] Carbonate ([place] Carbonate 300 Mg Tab) 300 mg PO AMHS [facility] Stop: 02/15/25 20:59 Last Admin: 01/17/25 08:39 Dose: Not Given Documented By: Admin: 01/16/25 20:54 Dose: 300 mg Documented By: JULISA Lorazepam (Lorazepam 2 Mg/1 Ml Vial) 2 mg IV Q1H PRN PRN Reason: seizure activity Stop: 02/16/25 06:14 Last Admin: 01/17/25 06:29 Dose: 2 mg Documented By: ERICA Metoprolol Succinate (Metoprolol Succ 25mg Ext Rel Tab) 25 mg PO HS [facility] Stop: 02/15/25 20:59 Last Admin: 01/16/25 20:55 Dose: 25 mg Documented By: JULISA Miscellaneous (Do Not TubeSomatropin 0.3mg Order Awaiting Action) 1 each N/A QSHIFT [facility] Stop: 02/15/25 15:59 Last Admin: 01/17/25 08:35 Dose: Not Given Documented By: Admin: 01/17/25 00:39 Dose: Not Given Documented By: [facility] Admin: 01/16/25 17:18 Dose: Not Given Documented By: JULISA Miscellaneous (Testosterone 1.62% Gel--Order Awaiting Action) 1 each N/A QS [facility] Stop: 02/15/25 15:59 Last Admin: 01/17/25 08:35 Dose: Not Given Documented By: Admin: 01/17/25 00:39 Dose: Not Given Documented By: Admin: 01/16/25 17:19 Dose: Not Given Documented By: ASW Nystatin (Nystatin Cr 15 Gm Tube) 1 appln EXT BID [facility] Stop: 02/15/25 20:59 Last Admin: 01/17/25 10:09 Dose: 1 appln Documented By: Admin: 01/16/25 21:39 Dose: Not Given Documented By: ASW Oseltamivir Phosphate (Oseltamivir Phosphate 75 Mg Cap) 75 mg PO BID [facility] Stop: 01/21/25 08:59 Last Admin: 01/17/25 08:39 Dose: Not Given Documented By: Admin: 01/16/25 20:55 Dose: 75 mg Documented By: ASW Oxybutynin Chloride (Oxybutynin Chloride Xl 5 Mg Tabcr) 5 mg PO DAILY [facility] Stop: 02/15/25 12:22 Last Admin: 01/17/25 08:39 Dose: Not Given Documented By: Admin: 01/16/25 13:42 Dose: 5 mg Documented By: GONZALO Prazosin HCl (Prazosin Hcl 1 Mg Cap) 5 mg PO HS [facility] Stop: 02/15/25 20:59 Last Admin: 01/16/25 20:55 Dose: 5 mg Documented By: LEONORW Propranolol HCl (Propranolol Hcl 60 Mg La Cap) 120 mg PO [facility] Stop: 02/15/25 20:59 Last Admin: 01/16/25 20:56 Dose: 120 mg Documented By: ASW Rosuvastatin Calcium (Rosuvastatin Calcium 20 Mg Tab) 20 mg PO QA [facility] Stop: 02/16/25 08:59 Last Admin: 01/17/25 08:40 Dose: Not Given Documented By: JESSICA Trazodone HCl (Trazodone Hcl 100 Mg Tab) 100 mg PO [facility] Stop: 02/15/25 20:59 Last Admin: 01/16/25 20:56 Dose: 100 mg Documented By: ASW Discontinued Medications Albuterol (Albuterol 0.5% Neb Soln 2.5 Mg/0.5 Ml Vial) 2.5 mg NEB NOW STA; Protocol Stop: 01/16/25 09:56 Last Admin: 01/16/25 10:18 Dose: 2.5 mg Documented By: GONZALO Hydrocortisone Sodium Succinate (Hydrocortisone Sod Succinate 100 Mg/2 Ml Vial) Confirm Administered Dose 100 mg .ROUTE .STK-MED ONE Stop: 01/17/25 02:43 Last Admin: 01/17/25 03:09 Dose: Not Given Documented By: LESVIA Hydrocortisone Sodium Succinate (Hydrocortisone Sod Succinate 100 Mg/2 Ml Vial) Confirm Administered Dose 100 mg .ROUTE .STK-MED ONE Stop: 01/17/25 02:52 Last Admin: 01/17/25 03:06 Dose: 100 mg Documented By: LESVIA Sodium Chloride (Nss) 1,000 mls @ 999 mls/hr IV .Q1H1M ONE Stop: 01/16/25 11:14 Last Infusion: 01/16/25 12:06 Dose: Infused Documented By: Admin: 01/16/25 10:20 Dose: 999 mls/hr Documented By: GONZALO Magnesium Sulfate/Dextrose (Magnesium Sulfate / D5w) 1 gm in 100 mls @ 50 mls/hr IV Q2H [facility] Stop: 01/16/25 19:29 Last Infusion: 01/16/25 21:41 Dose: Infused Documented By: Admin: 01/16/25 19:56 Dose: 50 mls/hr Documented By: Infusion: 01/16/25 19:16 Dose: Infused Documented By: Admin: 01/16/25 17:16 Dose: 50 mls/hr Documented By: Infusion: 01/16/25 17:11 Dose: Infused Documented By: Admin: 01/16/25 15:14 Dose: 50 mls/hr Documented By: Infusion: 01/16/25 15:02 Dose: Infused Documented By: Admin: 01/16/25 12:41 Dose: 50 mls/hr Documented By: GONZALO Potassium Chloride (K Jonathan / Wtr) 10 meq in 100 mls @ 100 mls/hr IV Q1H [facility] Stop: 01/16/25 13:29 Last Infusion: 01/16/25 15:08 Dose: Infused Documented By: Admin: 01/16/25 14:18 Dose: 100 mls/hr Documented By: Infusion: 01/16/25 13:41 Dose: Infused Documented By: Admin: 01/16/25 12:41 Dose: 100 mls/hr Documented By: GONZALO Magnesium Sulfate/Dextrose (Magnesium Sulfate / D5w) 1 gm in 100 mls @ 50 mls/hr IV Q2H [facility] Stop: 01/17/25 07:14 Last Infusion: 01/17/25 05:42 Dose: Infused Documented By: Admin: 01/17/25 03:25 Dose: 50 mls/hr Documented By: Infusion: 01/17/25 03:25 Dose: Infused Documented By: Admin: 01/17/25 03:13 Dose: 50 mls/hr Documented By: BERNARDINO Vancomycin HCl 2,500 mg/ (Sodium Chloride) 550 mls @ 200 mls/hr IV NOW STA Stop: 01/17/25 07:45 Last Infusion: 01/17/25 09:59 Dose: Infused Documented By: Admin: 01/17/25 05:43 Dose: 200 mls/hr Documented By: MARY Piperacillin Sod/Tazobactam Sod (Zosyn) 4.5 gm in 100 mls @ 200 mls/hr IV NOW STA Stop: 01/17/25 05:32 Last Infusion: 01/17/25 09:59 Dose: Infused Documented By: Admin: 01/17/25 06:18 Dose: 200 mls/hr Documented By: ERICA Levetiracetam (Levetiracetam 500 Mg/5 Ml Vial) 1,000 mg IV NOW STA Stop: 01/17/25 03:01 Last Admin: 01/17/25 03:06 Dose: 1,000 mg Documented By: LESVIA Lorazepam (Lorazepam 2 Mg/1 Ml Vial) Confirm Administered Dose 2 mg .ROUTE .STK- MED ONE Stop: 01/17/25 02:44 Last Admin: 01/17/25 02:46 Dose: 2 mg Documented By: LESVIA Lorazepam (Lorazepam 2 Mg/1 Ml Vial) 2 mg IV NOW STA Stop: 01/17/25 03:20 Last Admin: 01/17/25 07:20 Dose: Not Given Documented By: ADAN Lorazepam (Lorazepam 2 Mg/1 Ml Vial) Confirm Administered Dose 2 mg .ROUTE .STK- MED ONE Stop: 01/17/25 06:16 Last Admin: 01/17/25 06:19 Dose: 2 mg Documented By: ERICA Oseltamivir Phosphate (Oseltamivir Phosphate 75 Mg Cap) 75 mg PO ONE ONE Stop: 01/16/25 11:46 Last Admin: 01/16/25 15:43 Dose: Not Given Documented By: ASW Sodium Chloride (Sodium Chlor 7% 4 Ml Neb) 4 ml NEB ONE ONE Stop: 01/17/25 04:05 Last Admin: 01/17/25 04:27 Dose: 4 ml Documented By: ERD Description This is a 21 electrode EEG with a single channel dedicated to limited EKG. The electrodes were placed in accordance with the International 10-20 system. Interpretation The predominant background activity consists of somewhat irregular 8 hz activity, of up to 40 mV in amplitude,seen symmetrically distributed over the posterior head regions bilaterally, spreading anteriorly symmetrically.. This activity attenuates with eye-opening and other alerting procedures. Photic stimulation was performed and elicited no change in the background activity and no abnormal responses were seen. Hyperventilation was not performed. A mild amount of muscle and movement artifact activity contaminated the recording, yet did not hinder interpretation to any significant degree. Throughout the waking portion of the recording, no focal abnormalities, abnormal slow activity, or potentially epileptogenic discharges were seen. The patient entered the drowsy state and brief periods of stage II sleep with no further activation. In summary, this EEG was normal during wakefulness and light sleep. No focal abnormalities, potentially epileptogenic discharges, or abnormal slow activity was seen. Clinical Correlation The abscence of potentially epileptogenic activity does not exclude a seizure disorder, since interictally, EEGs can be normal. Clinical correlation is required. [facility] EEG Procedure Codes Indication for Procedure (1) Seizure disorder: Neurology Neurology: 16427 EEG include record awake & sleepy
[2025-01-17] MEDS: PIPERACILLIN/TAZOBACTAM 4.5 GM/100 ML BAG IV SCH (12:54)
[2025-01-17] MEDS: ACETAMINOPHEN 325 MG TAB PO PRN (14:26)
[2025-01-17] MEDS: ENOXAPARIN INJ 40 MG/0.4 ML SYR SQ SCH (16:20)
--- NOTE | 2025-01-17 17:44 | Billing Data ---
Date of Service January 17, 2025 Coding Level of Care Code 66605 SUB INP/OBS CARE MIN
--- NOTE | 2025-01-17 21:38 | Electrocardiogram Report ---
Test Reason : Blood Pressure : */* mmHG Vent. Rate : 110 BPM Atrial Rate : 115 BPM P-R Int : 150 ms QRS Dur : 86 ms QT Int : 312 ms P-R-T Axes : 68 -8 54 degrees QTcB Int : 422 ms Sinus tachycardia Otherwise normal ECG When compared with ECG of 23-Oct-2024 13:55, Vent. rate has increased by 36 bpm Confirmed by Og Cooper ([id number]) on 01/17/2025 9:38:07 PM Referred By: REFERRED SELF Confirmed By: Og Cooper
--- NOTE | 2025-01-17 21:38 | Electrocardiogram Report ---
Test Reason : Blood Pressure : */* mmHG Vent. Rate : 85 BPM Atrial Rate : 85 BPM P-R Int : 164 ms QRS Dur : 92 ms QT Int : 392 ms P-R-T Axes : 57 -1 15 degrees QTcB Int : 466 ms Normal sinus rhythm Normal ECG When compared with ECG of 16-Jan-2025 09:11, No significant change was found Confirmed by Og Cooper ([id number]) on 01/17/2025 9:38:23 PM Referred By: REFERRED SELF Confirmed By: Og Cooper
[2025-01-17] MEDS: OSELTAMIVIR PHOSPHATE SUSP 30 MG/5 ML UDP PO SCH (21:56)
[2025-01-18 02:32] LABS: HCO3 VBG 30 mmol/L; Oxygen Saturation VBG 96.2 %; PCO2 VBG 44 mmHg (38-50); PO2 VBG 74 mmHg; pH VBG 7.44 (7.36-7.41)
[2025-01-18 07:22] LABS: BUN Creatinine Ratio 19.8 (10-20); Calcium 8.4 mg/dl (8.6-10.3); Creatinine Clr Calc Pharmacy 108.6 ml/min; Potassium 3.8 mmol/L (3.5-5.1)
[2025-01-18 07:36] LABS: Basophils # (auto) 0.03 K/uL (0.00-0.20); Basophils % (auto) 0.4 %; Eosinophils # (auto) 0.03 K/uL (0.00-0.50); Eosinophils % (auto) 0.4 %; Hematocrit (blood only) 33.2 % (42.0-52.0); Hemoglobin 11.2 g/dl (14.0-18.0); Immature Granulocytes # (auto) 0.06 K/uL (0.01-0.20); Immature Granulocytes % (auto) 0.8 %; Lymphocytes # (auto) 1.66 K/uL (1.20-3.40); Lymphocytes % (auto) 22.4 %; Mean Corpuscular Hemoglobin 28.9 pg (25.0-34.0); Mean Corpuscular Hgb Conc 33.7 g/dL (32.0-36.0); Mean Corpuscular Volume 85.6 fL (80.0-100.0); Mean Platelet Volume 8.7 fL (9.4-12.4); Monocytes # (auto) 0.62 K/uL (0.11-0.59); Monocytes % (auto) 8.4 %; Neutrophils # (auto) 5.02 K/uL (1.40-6.50); Neutrophils % (auto) 67.6 %; Platelet Count 100 K/uL (130-400); RDW Coefficient of Variation 14.4 % (11.5-14.5); RDW Standard Deviation 44.9 fL (36.4-46.3); Red Blood Count 3.88 M/uL (4.70-6.10); White Blood Count 7.42 K/ul (4.8-10.8)
--- NOTE | 2025-01-18 09:13 | Hospitalist Progress Note ---
"Date of Service January 18, 2025 Assessment & Plan (1) Acute hypoxic respiratory failure: (2) Influenza A: (3) Seizure disorder: Plan #Acute influenza A infection +/- aspiration pneumonia | Acute hypoxemic Respiratory Failure -Possible aspiration pneumonia occurred 01/16 overnight with seizure activity. On empiric treatment Zosyn 4.5g IV q8h -01/17 CXR showed possible right lower lung zone infiltrates suggesting ongoing infectious/inflammatory process. and minimal left-sided pleural effusion, compared with 01/16 showing mild CHF, no effusion, consolidation -Oral Tamiflu started. Respiratory toilet including nebulizers. -3 L continuously of oxygen at home -On BiPAP some overnight and this morning, later transitioned to 4L NC -Etiology likely from restrictive lung disease d/t obesity/BMI 38.8 exacerbated by acute influenza infection and possible aspiration pneumonia -01/16 Blood cx NGTD -Nursing reported some change in mental status overnight (01/18) so BiPAP was resumed and VBG obtained: pH 7.44, CO2 44, O2 74, HCO3 30 -Patient more alert this morning but intermittently confused #Seizure disorder - 2 seizures 01/15, 1 seizure 01/16 AM, 2 seizures 01/17 overnight. - Seizure precautions ordered -01/17 Li 0.2, valproic acid 86 -01/17 EEG showed no focal abnormalities, potentially epileptogenic discharges, or abnormal slow activity. - Continue Keppra 1000mg PO Q12h -With seizure activity, page resident stat #Hypomagnesemia, Resolved -1.1 on admission --> 2.0 -Repleted #Increased shortness of breath -Troponin without elevation on admission -On admission did not endorse any cardiac symptomatology other than the shortness of breath. No chest pain #Obstructive sleep apnea -Reportedly was supposed to get CPAP at home but has not done this yet -He is following with pulmonology. -Monitor pulse ox, CPAP nightly while admitted #Recent hx of cellulitis right lower extremity. -Currently healing well. With a recent right fibular fracture August 2024 from seizure. #Panhypopituitary -Follows with endocrinology. -He is normotensive if he should become hemodynamically unstable we will consider hydrocortisone IV 100 mg every 6 if necessary #Microscopic hematuria - He has not seen urology. Would recommend outpatient urological follow-up for evaluation Chronic stable diagnoses: #GERD- Continue medications. #Bipolar disorder- Continue home medications. #Diabetes mellitus type 2- Basal bolus insulin regimen ordered on admission. #History of restrictive lung disease-Follows with pulmonology as an outpatient. #A fib- With watchman device and plavix + aspirin. Admission and Anticipated Discharge Date Admission Date: January 16, 2025 Supervising Physician Co-Signing Physician Notes I personally examined the patient and verified all tinoco points of history and exam, discussed case, and agree with decision making with Dr Fischer and Bonita Rutherford feeling better than before. still soemwhat confused - goes through [facility] ([facility] been closed for ~20yrs to my knowledge) before landing on that he's in [employer] in the hospital - but then relates about being here for some kind of training. vitals noted fatigued but has O2 off when i enter room - ~91 on RA. lungs still scattered coarse rhonchi but way more clear than before. confused but no focal deficits. acute hypoxic respiratory failure and acute kidney failure - flu and likely secondary pneumonia (?CAP vs aspiration) - continue abx (narrow to ceftriaxone), antivirals, supportive care. this is superimposed on chronic respiratory failure due to CORINA/OHS restrictive lung disease. delirium likely due to all of above. is slowly improving. once he's more lucid will definitely need to talk about lifestyle change DVT proph -lovenox Subjective This morning Waldo was more alert today and able to converse but only oriented to person. No seizures reported overnight, but was reported to be restless. No reported headache, chills, SOB, chest pain, abdominal pain. He reports dysuria but says it's been going on for weeks. Review of Systems Review of Systems: As per HPI. Physical Exam Physical Exam: General:No acute distress, sitting in bed. Cardio: Distant heart sounds. Resp:Bilateral inspiratory and expiratory wheezing. GI: Soft and mildly tender, normoactive bowel sounds. Skin: Warm, pink, dry. No LE edema. Results & Data Results & Data Vital Signs (Past 12 Hours) Vital Signs Temp Pulse Pulse Resp BP Pulse Ox O2 Del Method 01/18/25 07:26 35.8 C L 85 16 130/76 99 BiPAP 01/18/25 07:18 81 18 93 Nasal Cannula 01/18/25 02:28 36.5 C 86 20 106/84 97 BiPAP 01/18/25 02:15 85 22 95 01/17/25 23:29 85 01/17/25 23:10 High Flow Nasal Cannula 01/17/25 22:22 36.5 C 85 19 118/82 96 High Flow Nasal Cannula O2 Flow Rate FiO2 01/18/25 07:26 01/18/25 07:18 5 01/18/25 02:28 01/18/25 02:15 40 01/17/25 23:29 01/17/25 23:10 5 01/17/25 22:22 8 Resident Activity Tracking Resident Involvement: Resident Care Provided Care Provided: Adult Hospital Medicine Resident Supervision Co-Signing Physician Notes I saw and examined the patient in conjunction with GUANAKITO Benito and agree with documented physical exam and assessment/plan, adjustments made to documentation as needed. I called and spoke with patient's , Alana, this afternoon to provide and update. Patient today knew he was in [facility], but later made comments about a horse and needing to move the bed- suspect some degree of delirium. No additional seizure activity in last 24 hours. Consider de- escalating from Zosyn to Ceftriaxone tomorrow. Will likely need HH or rehab at discharge. Physical Exam: General: resting comfortably, no acute distress HEENT: no eternal ear or nose abnormality, moist mucous membranes, PERRLA CV: regular rate and rhythm, no lower extremity edema Lungs: Decreased air flow/diminished lung sounds but some wheezing. Occasional cough Abd: soft, nontender, nondistended Psych: oriented to self"
--- NOTE | 2025-01-18 16:59 | Billing Data ---
Date of Service January 18, 2025 Coding Level of Care Code 98986 SUB INP/OBS CARE MIN
[2025-01-18] MEDS: cefTRIAXone SODIUM 2,000 MG/50 ML BAG IV SCH (18:18)
[2025-01-18] MEDS: LORazepam 2 MG/1 ML VIAL ONE (19:56)
[2025-01-18 19:57] LABS: Base Excess VBG 4.8 mEq/L; HCO3 VBG 30 mmol/L; Oxygen Saturation VBG 83.8 %; PCO2 VBG 48 mmHg (38-50); PO2 VBG 54 mmHg; pH VBG 7.41 (7.36-7.41)
[2025-01-18] MEDS: LORazepam 2 MG/1 ML VIAL IM STA (20:02)
[2025-01-18] MEDS: levETIRAcetam 500 MG/5 ML VIAL IV STA (20:29)
--- NOTE | 2025-01-18 20:47 | XRay Report ---
Exam(s): XR CXR 1 VIEW EXAM: XR Chest, 1 View CLINICAL HISTORY: Reason for exam: seizure event. TECHNIQUE: Frontal view of the chest. COMPARISON: 01/17/25 FINDINGS: Lungs: Reduced lung volumes with patchy bilateral airspace opacities. Pleural space: No pleural effusion. No pneumothorax. Heart: Large cardiac silhouette. Mediastinum: Unremarkable. Bones/joints: No acute fracture. Old left rib and clavicular fractures. Tubes, lines and devices: Cardiac loop recorder. Upper abdomen: Unremarkable as visualized. IMPRESSION: Reduced lung volumes with patchy bilateral airspace opacities. Electronically signed by: Nimisha Monk M.D. 01/18/25 20:46 PM
--- NOTE | 2025-01-18 21:17 | CT Scan Report ---
Exam(s): CT HEAD Without Contrast EXAM: CT Head Without Intravenous Contrast CLINICAL HISTORY: Reason for exam: Seizure, ams. TECHNIQUE: Axial computed tomography images of the head/brain without intravenous contrast. CTDI is 45 mGy and DLP is 624 mGy-cm. Automated exposure control was utilized for the study. A dose lowering technique was utilized adhering to the principles of ALARA. COMPARISON: 10/25/24 FINDINGS: Artifacts: Motion. Brain: No intracranial hemorrhage. Redemonstration of patrick- cisterna magna versus arachnoid cyst. Senescent changes. Ventricles: No hydrocephalus. Bones/joints: No acute fracture. Soft tissues: Unremarkable. Sinuses: Minimal sinus mucosal thickening. Mastoid air cells: No mastoid effusion. Orbits: Cataract surgery. IMPRESSION: No acute findings in the head/brain. Electronically signed by: Nimisha Monk M.D. 01/18/25 21:16 PM
[2025-01-18] MEDS: ALBUTEROL HFA 8 GM INHALER INH PRN (21:28)
[2025-01-18] MEDS: OSELTAMIVIR PHOSPHATE 75 MG CAP PO SCH (21:30)
[2025-01-18] MEDS: OLANZapine 10 MG/2.1 ML SDV IM ONE (23:12)
[2025-01-18] MEDS: OLANZapine 10 MG/2.1 ML SDV IM STA (23:13)
--- NOTE | 2025-01-19 07:11 | Hospitalist Progress Note ---
Date of Service January 19, 2025 Assessment & Plan (1) Acute hypoxic respiratory failure: (2) Influenza A: (3) Seizure disorder: Plan Waldo is a 54M w/ PMH of GERD, RLD, venous insufficiency, seizures, COPD, demyelinating disease, HTN, adrenal insufficiency, pituitary hypogonadism, CAD, lumbar stenosis w/ claudication, dysphagia, CORINA, HLD, bipolar disorder, T2DM, growth hormone deficiency, and BPH w/ LUTS who presented for acute increase in cough and dyspnea and was found to have Influenza A. Acute Influenza A w/ Acute Hypoxic Respiratory Failure +/- Aspiration Pneumonia vs Pneumonitis - Patient presented w/ new Influenza A Infection causing AHRF on chronic resp failure requiring 3L at baseline Likely multifactorial presentation in a/w restrictive lung disease and elevated BMI 38 - Chest imaging CXR 01/16: indicated mild CHF w/o effusion or consolidation CXR 01/17: indicated potential RLL infiltrate and L pleural effusion CXR 01/18: Reduced lung volumes with patchy bilateral airspace opacities. - Potential aspiration during seizure episodes inpatient (chewing tobacco during 2 of the episodes) Empiric treatment with Zosyn 2.5 g IV Q8h Transitioned to Ceftriaxone 2g IV Q24h 01/18 01/19 Passed bedside swallow, diet advanced to soft bites - 01/16 blood culture w/o growth - Continue pulmonary toilet (incentive spirometry/flutter valve) - Continue Duonebs PRN - Continue Tamiflu 01/18-01/21 - Ongoing fluctuations in mental status - Vitals stable, with O2 needs returned to baseline 3L NC Would consider CT chest if clinically worsened from pulmonary perspective Seizure disorder - Seizures inpatient: 01/15 (x2), 01/15, 01/17, and 01/18 - Seizure precautions ordered - 01/17 Li 0.2, valproic acid 86 - 01/17 EEG showed no focal abnormalities, potentially epileptogenic discharges, or abnormal slow activity. - Continue Keppra 1000mg PO Q12h - If seizure activity - PAGE RESIDENT STAT Unable to provide PRN benzodiazepine d/t risk of respiratory depression #Hypomagnesemia, Resolved #Obstructive sleep apnea -Reportedly was supposed to get CPAP at home but has not done this yet -He is following with pulmonology. -Monitor pulse ox, CPAP nightly while admitted #Recent hx of cellulitis right lower extremity. -Currently healing well. With a recent right fibular fracture August 2024 from seizure. #Panhypopituitary -Follows with endocrinology. -He is normotensive if he should become hemodynamically unstable we will consider hydrocortisone IV 100 mg Q6h #Microscopic hematuria - He has not seen urology. Would recommend outpatient urological follow-up for evaluation Chronic stable diagnoses: #GERD- Continue medications. #Bipolar disorder- Continue home medications. #Diabetes mellitus type 2- Basal bolus insulin regimen ordered on admission. #History of restrictive lung disease-Follows with pulmonology as an outpatient. #A fib- With watchman device and plavix + aspirin. 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 lungs quiet but more clear - less rhonchi no rales no wheeze no accessory muscles. no focal neuro deficits. no c/c/e no calf tenderness acute hypoxic respiratory failure and acute kidney failure - flu and likely secondary pneumonia (?CAP vs aspiration) - continue abx (narrowed to ceftriaxone), antivirals, supportive care. this is superimposed on chronic respiratory failure due to CORINA/OHS restrictive lung disease. delirium likely due to all of above. breathing is slowly improving. 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 Patient groggy this AM but responsive to questions. Notes productive cough, chest congestion, dyspnea, fevers, and chills. Patient notes his cough has progressed. Nursing at bedside to note that patient has been experiencing hallucinations of spiders on the ceiling and needing to go get things at home, but has remained AO x 1 - AO x 2. No additional agitation episodes this morning. Concern for aspiration event overnight given that patient was chewing tobacco during the seizure. Of note, patient was also chewing tobacco during a previous inpatient seizure. Can is now placed in a cabinet away from bedside to limit aspiration risk. Physical Exam Physical Exam: Gen: NAD, somnolent but arousable to voice, persistent wet cough HEENT: Supple, no LAD, no thyromegaly, no JVD Resp:Non-labored, rhonchi in upper airways bilaterally, no crackles or wheezing CV:RRR, normal S1/S2, no M/R/G Abd: Soft, non-distended, no TTP, normoactive bowels, no masses Extr: 2+ dp bilaterally, no edema Skin: No rashes lesions or erythema Results & Data Results & Data Vital Signs (Past 12 Hours) Vital Signs Temp Pulse Pulse Pulse Resp BP Pulse Ox 01/19/25 06:59 69 16 108/65 95 01/19/25 02:04 36.4 C L 74 22 115/75 95 01/19/25 01:51 74 16 93 01/19/25 01:16 84 01/18/25 22:30 36.5 C 83 20 118/81 96 01/18/25 22:00 01/18/25 20:16 84 16 96 O2 Del Method O2 Flow Rate 01/19/25 06:59 Nasal Cannula 5 01/19/25 02:04 Nasal Cannula 4.5 01/19/25 01:51 Nasal Cannula 4.5 01/19/25 01:16 01/18/25 22:30 Nasal Cannula 4.5 01/18/25 22:00 High Flow Nasal Cannula 4.5 01/18/25 20:16 Nasal Cannula 4.5 Resident Activity Tracking Resident Involvement: Resident Care Provided Care Provided: Adult Hospital Medicine
[2025-01-19 07:13] LABS: Basophils # (auto) 0.01 K/uL (0.00-0.20); Basophils % (auto) 0.2 %; Eosinophils # (auto) 0.05 K/uL (0.00-0.50); Eosinophils % (auto) 1.1 %; Hematocrit (blood only) 33.4 % (42.0-52.0); Hemoglobin 11.3 g/dl (14.0-18.0); Immature Granulocytes # (auto) 0.03 K/uL (0.01-0.20); Immature Granulocytes % (auto) 0.6 %; Lymphocytes % (auto) 25.9 %; Mean Corpuscular Hemoglobin 29.6 pg (25.0-34.0); Mean Corpuscular Hgb Conc 33.8 g/dL (32.0-36.0); Mean Corpuscular Volume 87.4 fL (80.0-100.0); Mean Platelet Volume 8.8 fL (9.4-12.4); Monocytes # (auto) 0.49 K/uL (0.11-0.59); Monocytes % (auto) 10.6 %; Neutrophils # (auto) 2.85 K/uL (1.40-6.50); Neutrophils % (auto) 61.6 %; Platelet Count 105 K/uL (130-400); RDW Coefficient of Variation 14.2 % (11.5-14.5); RDW Standard Deviation 45.5 fL (36.4-46.3); Red Blood Count 3.82 M/uL (4.70-6.10); White Blood Count 4.63 K/ul (4.8-10.8)
[2025-01-19 07:38] LABS: BUN Creatinine Ratio 22.9 (10-20); Calcium 8.4 mg/dl (8.6-10.3); Creatinine Clr Calc Pharmacy 132.1 ml/min; Potassium 3.8 mmol/L (3.5-5.1)
[2025-01-19] MEDS ORDERED: Nursing to Pharmacy Communication SCH ×2 (12:15→15:30)
--- NOTE | 2025-01-19 15:32 | Billing Data ---
Date of Service January 19, 2025 Coding Level of Care Code 11959 SUB INP/OBS CARE MIN
[2025-01-19 16:04] LABS: Base Excess VBG 6.9 mEq/L; HCO3 VBG 33 mmol/L; Oxygen Saturation VBG 80.2 %; PCO2 VBG 52 mmHg (38-50); PO2 VBG 50 mmHg; pH VBG 7.41 (7.36-7.41)
[2025-01-19] MEDS: INSULIN ASPART PER UNIT CHARGE SC SCH (16:36)
[2025-01-19] MEDS: INSULIN ASPART PER UNIT CHARGE ONE (17:09)
[2025-01-19] MEDS ORDERED: INSULIN ASPART PER UNIT CHARGE SC SCH (18:00)
[2025-01-19] MEDS: ALBUT/IPRATROP 3MG/0.5MG NEB 3 ML VIAL NEB PRN (23:14)
[2025-01-20 07:24] LABS: Basophils # (auto) 0.02 K/uL (0.00-0.20); Basophils % (auto) 0.4 %; Eosinophils # (auto) 0.06 K/uL (0.00-0.50); Eosinophils % (auto) 1.2 %; Hematocrit (blood only) 33.9 % (42.0-52.0); Hemoglobin 11.4 g/dl (14.0-18.0); Immature Granulocytes # (auto) 0.05 K/uL (0.01-0.20); Lymphocytes # (auto) 1.31 K/uL (1.20-3.40); Lymphocytes % (auto) 26.7 %; Mean Corpuscular Hemoglobin 29.3 pg (25.0-34.0); Mean Corpuscular Hgb Conc 33.6 g/dL (32.0-36.0); Mean Corpuscular Volume 87.1 fL (80.0-100.0); Mean Platelet Volume 8.5 fL (9.4-12.4); Monocytes # (auto) 0.49 K/uL (0.11-0.59); Neutrophils # (auto) 2.98 K/uL (1.40-6.50); Neutrophils % (auto) 60.7 %; Platelet Count 130 K/uL (130-400); RDW Standard Deviation 44.7 fL (36.4-46.3); Red Blood Count 3.89 M/uL (4.70-6.10); White Blood Count 4.91 K/ul (4.8-10.8)
[2025-01-20 07:40] LABS: BUN Creatinine Ratio 20.5 (10-20); Calcium 8.7 mg/dl (8.6-10.3); Creatinine Clr Calc Pharmacy 131.1 ml/min; Potassium 3.9 mmol/L (3.5-5.1)
--- NOTE | 2025-01-20 10:04 | Hospitalist Progress Note ---
Date of Service January 20, 2025 Assessment & Plan (1) Acute hypoxic respiratory failure: (2) Influenza A: (3) Seizure disorder: Plan Waldo is a 54M w/ PMH of GERD, RLD, venous insufficiency, seizures, COPD, demyelinating disease, HTN, adrenal insufficiency, pituitary hypogonadism, CAD, lumbar stenosis w/ claudication, dysphagia, CORINA, HLD, bipolar disorder, T2DM, growth hormone deficiency, and BPH w/ LUTS who presented for acute increase in cough and dyspnea and was found to have Influenza A. Acute Influenza A w/ Acute Hypoxic Respiratory Failure +/- Aspiration Pneumonia vs Pneumonitis - Patient presented w/ new Influenza A Infection causing AHRF on chronic resp failure requiring 3L at baseline Likely multifactorial presentation in a/w restrictive lung disease and elevated BMI 38 - Chest imaging CXR 01/16: indicated mild CHF w/o effusion or consolidation CXR 01/17: indicated potential RLL infiltrate and L pleural effusion CXR 01/18: Reduced lung volumes with patchy bilateral airspace opacities. - Potential aspiration during seizure episodes inpatient (chewing tobacco during 2 of the episodes) Empiric treatment with Zosyn 2.5 g IV Q8h Transitioned to Ceftriaxone 2g IV Q24h 01/18 01/19 Passed bedside swallow, diet advanced to soft bites - 01/16 blood culture w/o growth - Continue pulmonary toilet (incentive spirometry/flutter valve) - Continue Duonebs PRN and Mucinex - Continue Tamiflu 01/18-01/21 - Ongoing fluctuations in mental status - Vitals stable, with O2 needs returned to baseline 3L NC Would consider CT chest if clinically worsened from pulmonary perspective Seizure disorder - Seizures inpatient: 01/15 (x2), 01/15, 01/17, and 01/18 - Seizure precautions ordered - 01/17 Li 0.2, valproic acid 86 - 01/17 EEG showed no focal abnormalities, potentially epileptogenic discharges, or abnormal slow activity. - Continue Keppra 1000mg PO Q12h - If seizure activity - PAGE RESIDENT STAT Unable to provide PRN benzodiazepine d/t risk of respiratory depression - Patient was scheduled outpatient for MRI brain to evaluate brain mass Ordered inpatient given increased frequency of seizures #Hypomagnesemia, Resolved #Obstructive sleep apnea -Reportedly was supposed to get CPAP at home but has not done this yet -He is following with pulmonology. -Monitor pulse ox, CPAP nightly while admitted #Recent hx of cellulitis right lower extremity. -Currently healing well. With a recent right fibular fracture August 2024 from seizure. #Panhypopituitary -Follows with endocrinology. -He is normotensive if he should become hemodynamically unstable we will consider hydrocortisone IV 100 mg Q6h #Microscopic hematuria - He has not seen urology. Would recommend outpatient urological follow-up for evaluation Chronic stable diagnoses: #GERD- Continue medications. #Bipolar disorder- Continue home medications. #Diabetes mellitus type 2- Basal bolus insulin regimen ordered on admission. #History of restrictive lung disease-Follows with pulmonology as an outpatient. #A fib- With watchman device and plavix + aspirin. Code: DNR/DNI DVT ppx: Lovenox Admission and Anticipated Discharge Date Admission Date: January 16, 2025 Supervising Physician Co-Signing Physician Notes I personally examined the patient and verified all tinoco points of history and exam, discussed case, and agree with decision making with Dr Bautista awake and lucid - when i enter the room he is on his phone. oriented (does take a moment to be able to totally declare that he's in the hospital in [place], but is able to!) still feels sob. wants to get up and do more. vitals noted fatigued but awake and alert/oriented. lungs mostly just coarse throughout (given prior exams would call it c/w "fading rhonchi") no focal findings. no focal neuro deficits. acute hypoxic respiratory failure and acute kidney failure - flu and likely secondary pneumonia (?CAP vs aspiration) - continue abx (narrowed to ceftriaxone), antivirals, supportive care. this is superimposed on chronic resp iratory failure due to CORINA/OHS restrictive lung disease. delirium likely due to all of above but fortunately this has improved. breathing is slowly improving. 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 Patient playing on phone upon arrival to room. 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 Ongoing cough that is non- productive, denies chest pain or dyspnea. No fevers or chills. Patient notes he has inhalers at home for his cough/wheezing but does not use them because they 'do not work'. He does use supplemental oxygen PRN at home. Physical Exam Physical Exam: Gen: NAD, alert, avoidant, persistent wet cough HEENT: Supple, no LAD, no thyromegaly, no JVD Resp:Non-labored, rhonchi in upper airways bilaterally, no crackles or wheezing CV:RRR, normal S1/S2, no M/R/G Abd: Soft, non-distended, no TTP, normoactive bowels, no masses Extr: 2+ dp bilaterally, no edema Skin: No rashes lesions or erythema Results & Data Results & Data Vital Signs (Past 12 Hours) Vital Signs Temp Pulse Pulse Pulse Resp BP Pulse Ox 01/20/25 07:31 71 24 97 01/20/25 07:00 36.8 C 61 18 132/84 97 01/20/25 05:03 72 01/20/25 02:07 36.5 C 75 18 115/67 93 01/19/25 23:17 76 18 96 01/19/25 23:14 76 18 97 01/19/25 22:48 36.5 C 82 24 114/88 94 O2 Del Method O2 Flow Rate FiO2 01/20/25 07:31 BiPAP 40 01/20/25 07:00 CPAP 01/20/25 05:03 01/20/25 02:07 BiPAP 01/19/25 23:17 BiPAP 40 01/19/25 23:14 40 01/19/25 22:48 High Flow Nasal Cannula 3 Resident Activity Tracking Resident Involvement: Resident Care Provided Care Provided: Adult Hospital Medicine
--- NOTE | 2025-01-20 11:07 | Billing Data ---
Date of Service January 20, 2025 Coding Level of Care Code 29476 SUB INP/OBS CARE
[2025-01-20] MEDS: LORazepam 2 MG/1 ML VIAL ONE (19:31)
[2025-01-20] MEDS: guaiFENesin 600 MG TABCR PO SCH (22:06)
[2025-01-20] MEDS: GADOBUTROL 15ML VIAL IV ONE (23:42)
--- NOTE | 2025-01-21 01:41 | Magnetic Resonance Report ---
Exam(s): MRI HEAD W/WO Contrast IV Amt: 12cc gadavist EXAM: MR Head Without and With Intravenous Contrast CLINICAL HISTORY: Reason for exam: Eval brain mass, increased seizures. TECHNIQUE: Magnetic resonance images of the head/brain without and with intravenous contrast in multiple planes. CONTRAST: Patient received 12cc gadavist of IV contrast COMPARISON: Prior head CT from January 18, 2025. FINDINGS: This study is limited secondary to motion artifact. Brain: Minimal nonspecific white matter changes. 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 No mass. No hemorrhage. No acute infarct. The flow voids at the base of the brain are intact. No evidence of abnormal enhancement. The dural venous sinuses are patent. No evidence of mesial temporal sclerosis, cortical dysplasia or heterotopic elias matter. Ventricles: Unremarkable. No ventriculomegaly. Bones/joints: Unremarkable. No acute fracture. Sinuses: Chronic maxillary, ethmoid and sphenoid sinusitis.. No acute sinusitis. Mastoid air cells: Unremarkable as visualized. No mastoid effusion. Orbits: Bilateral lens replacements. IMPRESSION: No evidence of acute intracranial pathology. Electronically signed by: Donna Sommer MD 01/21/25 01:40 AM
[2025-01-21 06:48] LABS: Basophils # (auto) 0.04 K/uL (0.00-0.20); Basophils % (auto) 0.5 %; Eosinophils # (auto) 0.07 K/uL (0.00-0.50); Eosinophils % (auto) 0.8 %; Hematocrit (blood only) 36.4 % (42.0-52.0); Hemoglobin 12.3 g/dl (14.0-18.0); Immature Granulocytes # (auto) 0.23 K/uL (0.01-0.20); Immature Granulocytes % (auto) 2.8 %; Lymphocytes # (auto) 1.68 K/uL (1.20-3.40); Lymphocytes % (auto) 20.3 %; Mean Corpuscular Hemoglobin 29.4 pg (25.0-34.0); Mean Corpuscular Hgb Conc 33.8 g/dL (32.0-36.0); Mean Corpuscular Volume 86.9 fL (80.0-100.0); Mean Platelet Volume 8.5 fL (9.4-12.4); Monocytes # (auto) 0.68 K/uL (0.11-0.59); Monocytes % (auto) 8.2 %; Neutrophils # (auto) 5.59 K/uL (1.40-6.50); Neutrophils % (auto) 67.4 %; Platelet Count 152 K/uL (130-400); RDW Coefficient of Variation 13.9 % (11.5-14.5); Red Blood Count 4.19 M/uL (4.70-6.10); White Blood Count 8.29 K/ul (4.8-10.8)
[2025-01-21 07:13] LABS: BUN Creatinine Ratio 13.4 (10-20); Creatinine Clr Calc Pharmacy 110.9 ml/min; Potassium 3.7 mmol/L (3.5-5.1)
--- NOTE | 2025-01-21 07:40 | Hospitalist Progress Note ---
Date of Service January 21, 2025 Assessment & Plan (1) Acute hypoxic respiratory failure: (2) Influenza A: (3) Seizure disorder: Plan Waldo is a 54M w/ PMH of GERD, RLD, venous insufficiency, seizures, COPD, demyelinating disease, HTN, adrenal insufficiency, pituitary hypogonadism, CAD, lumbar stenosis w/ claudication, dysphagia, CORINA, HLD, bipolar disorder, T2DM, growth hormone deficiency, and BPH w/ LUTS who presented for acute increase in cough and dyspnea and was found to have Influenza A. Acute Influenza A w/ Acute Hypoxic Respiratory Failure +/- Aspiration Pneumonia vs Pneumonitis - Patient presented w/ new Influenza A Infection causing AHRF on chronic resp failure requiring 3L at baseline Likely multifactorial presentation in a/w restrictive lung disease and elevated BMI 38 - Chest imaging CXR 01/16: indicated mild CHF w/o effusion or consolidation CXR 01/17: indicated potential RLL infiltrate and L pleural effusion CXR 01/18: Reduced lung volumes with patchy bilateral airspace opacities. - Potential aspiration during seizure episodes inpatient (chewing tobacco during 2 of the episodes) Empiric treatment with Zosyn 2.5 g IV Q8h Transitioned to Ceftriaxone 2g IV Q24h 01/18 01/19 Passed bedside swallow, diet advanced to soft bites - 01/16 blood culture w/o growth - Continue pulmonary toilet (incentive spirometry/flutter valve) - Continue Duonebs PRN and Mucinex - Continue Tamiflu 01/18-01/21 - Ongoing fluctuations in mental status - Vitals stable, O2 requirement returned to baseline 3L NC Would consider CT chest if clinically worsened from pulmonary perspective Seizure disorder - Seizures inpatient: 01/15 (x2), 01/15, 01/17, and 01/18 - Seizure precautions ordered - 01/17 Li 0.2, valproic acid 86 - 01/17 EEG showed no focal abnormalities, potentially epileptogenic discharges, or abnormal slow activity. - Continue Keppra 1000mg PO Q12h - Unable to provide PRN benzodiazepine d/t risk of respiratory depression - MRI brain neg for acute intracranial pathology #Hypomagnesemia, Resolved #Obstructive sleep apnea -Reportedly was supposed to get CPAP at home but has not done this yet -He is following with pulmonology. -Monitor pulse ox, CPAP nightly while admitted #Recent hx of cellulitis right lower extremity. -Currently healing well. With a recent right fibular fracture August 2024 from seizure. #Panhypopituitary -Follows with endocrinology. -He is normotensive if he should become hemodynamically unstable we will consider hydrocortisone IV 100 mg Q6h #Microscopic hematuria - He has not seen urology. Would recommend outpatient urological follow-up for evaluation Chronic stable diagnoses: #GERD- Continue medications. #Bipolar disorder- Continue home medications. #Diabetes mellitus type 2- Basal bolus insulin regimen ordered on admission. #History of restrictive lung disease-Follows with pulmonology as an outpatient. #A fib- With watchman device and plavix + aspirin. Code: DNR/DNI DVT ppx: Lovenox Dispo: PT / OT eval pending Admission and Anticipated Discharge Date Admission Date: January 16, 2025 Subjective No acute events overnight Currently no new complaints Review of Systems Review of Systems: Comprehensive ROS neg Physical Exam Physical Exam: Gen: NAD, lying in bed comfortable HEENT: NC/AT, anicteric, MMM Lungs: coarse breath sounds, congested, scattered expiratory wheezing CVS: s1s2nl, RRR Abd: nl bowel sounds, soft, NT Ext: no edema Results & Data Results & Data Vital Signs (Past 12 Hours) Vital Signs Temp Pulse Pulse Resp BP Pulse Ox O2 Del Method 01/21/25 07:00 36.6 C 73 20 135/80 98 Nebulizer 01/21/25 07:00 68 18 95 Nasal Cannula 01/21/25 04:06 68 15 96 01/21/25 03:42 37.1 C 67 18 154/85 H 97 BiPAP 01/21/25 03:18 81 01/21/25 00:03 36.6 C 81 18 128/79 94 Nasal Cannula 01/20/25 21:24 74 18 93 01/20/25 21:21 71 20 93 01/20/25 21:15 78 15 97 01/20/25 21:12 78 25 H 91 01/20/25 21:03 82 27 H 96 01/20/25 21:00 77 31 H 90 01/20/25 20:45 79 20 92 01/20/25 20:42 81 13 97 01/20/25 20:30 77 25 H 99 01/20/25 19:57 77 13 97 01/20/25 19:54 81 30 H 96 01/20/25 19:51 74 30 H 98 01/20/25 19:45 75 28 H 99 01/20/25 19:39 89 13 100 01/20/25 19:34 73 28 H 92 Nasal Cannula O2 Flow Rate FiO2 01/21/25 07:00 01/21/25 07:00 2 01/21/25 04:06 40 01/21/25 03:42 01/21/25 03:18 01/21/25 00:03 5.0 01/20/25 21:24 01/20/25 21:21 01/20/25 21:15 01/20/25 21:12 01/20/25 21:03 01/20/25 21:00 01/20/25 20:45 01/20/25 20:42 01/20/25 20:30 01/20/25 19:57 01/20/25 19:54 01/20/25 19:51 01/20/25 19:45 01/20/25 19:39 01/20/25 19:34 2 PG Care Time/CCT Total # of Minutes Spent Total Time Spent with Patient: Total time spent is greater than 50% in coordination of care (as documented) at patient's floor/unit and/or counseling patient: Coding Level of Care Code 72378 SUB INP/OBS CARE 2/35MIN Diagnoses Acute hypoxic respiratory failure J96.01 Influenza A J10.1 Seizure disorder G40.909
[2025-01-22 08:23] LABS: Hemoglobin 12.7 g/dl (14.0-18.0); Mean Corpuscular Hemoglobin 29.7 pg (25.0-34.0); Mean Corpuscular Hgb Conc 34.3 g/dL (32.0-36.0); Mean Corpuscular Volume 86.4 fL (80.0-100.0); Mean Platelet Volume 8.4 fL (9.4-12.4); Platelet Count 152 K/uL (130-400); RDW Coefficient of Variation 13.7 % (11.5-14.5); RDW Standard Deviation 42.7 fL (36.4-46.3); Red Blood Count 4.28 M/uL (4.70-6.10); White Blood Count 8.83 K/ul (4.8-10.8)
[2025-01-22 08:46] LABS: BUN Creatinine Ratio 10.8 (10-20); Calcium 8.9 mg/dl (8.6-10.3); Creatinine Clr Calc Pharmacy 130.6 ml/min; Magnesium 1.6 mg/dl (1.7-2.4); Phosphorus 3.2 mg/dl (2.5-4.9); Potassium 3.9 mmol/L (3.5-5.1)
[2025-01-22 08:59] LABS: Basophils # (auto) 0.12 K/uL (0.00-0.20); Basophils % (auto) 1.4 %; Eosinophils # (auto) 0.16 K/uL (0.00-0.50); Eosinophils % (auto) 1.8 %; Immature Granulocytes # (auto) 0.61 K/uL (0.01-0.20); Immature Granulocytes % (auto) 6.9 %; Lymphocytes # (auto) 2.53 K/uL (1.20-3.40); Lymphocytes % (auto) 28.7 %; Monocytes # (auto) 0.62 K/uL (0.11-0.59); Neutrophils # (auto) 4.79 K/uL (1.40-6.50); Neutrophils % (auto) 54.2 %; Ovalocytes 1+; Polychromasia 1+
[2025-01-22] MEDS: LORazepam 2 MG/1 ML VIAL IV STA (13:33)
[2025-01-22] MEDS: LORazepam 2 MG/1 ML VIAL ONE (13:36)
[2025-01-22] MEDS: MAGNESIUM SULFATE / D5W 1 GM/100 ML BAG IV SCH (18:34)
--- NOTE | 2025-01-22 18:37 | Hospitalist Progress Note ---
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, on 3 liters/minute O2 via nasal cannula [id number] at home, CAD on rosuvastatin 20mg PO qam, HTN on bumex 1mg PO qam, lisinopril 40mg PO daily, metoprolol 25mg PO qhs, bipolar disorder on abilify 5mg PO daily, duloxetine 60mg PO daily, lithium 300mg PO qam and qhs, valproic acid 1000mg PO daily, insomnia disorder on mirtazapine 30mg PO qhs and trazodone 100mg PO qhs, 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 5mg PO qhs, panic attack on propanolol 120mg PO qhs, migraine headache on Nurtec ODT 75mg PO daily prn migraine headache, demyelinating disease not otherwise specified, generalized seizure disorder on lacosamide 150mg PO bid, levetiracetam 1000mg PO q12, valproic acid 1000mg PO daily, and lorazepam 0.5mg PO daily prn seizure, pituitary tumor s/p resections x 2 (first resection ~19 years ago @ [facility] ([facility]); second resection ~5 years ago @ [facility]), 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 Acute hypoxic respiratory failure due to acute influenza A infection with no obvious infiltrate/consolidation on admission 01/16/2025 portable CXR. The following medical issues are being addressed: Acute Influenza A w/ Acute Hypoxic Respiratory Failure +/- Aspiration Pneumonia vs Pneumonitis - Patient presented w/ new influenza A Infection causing AHRF on chronic resp failure requiring 3L at baseline Likely multifactorial presentation in a/w restrictive lung disease and elevated BMI 38 - Chest imaging CXR 01/16: indicated mild CHF w/o effusion or consolidation CXR 01/17: indicated potential RLL infiltrate and L pleural effusion CXR 01/18: Reduced lung volumes with patchy bilateral airspace opacities. - Potential aspiration during seizure episodes inpatient (chewing tobacco during 2 of the episodes) Empiric treatment with Zosyn 2.5 g IV Q8h Transitioned to Ceftriaxone 2g IV Q24h 01/18 01/19 Passed bedside swallow, diet advanced to soft bites - 01/16 blood culture w/o growth - Continue pulmonary toilet (incentive spirometry/flutter valve) - Continue Duonebs PRN and Mucinex - Continue Tamiflu 01/18-01/21 - Ongoing fluctuations in mental status - Vitals stable, O2 requirement returned to baseline 3L NC Would consider CT chest if clinically worsened from pulmonary perspective Seizure disorder - Seizures inpatient: 01/15 (x2), 01/15, 01/17, 01/18, and now 01/22 - Seizure precautions continued - 01/17 Li 0.2, valproic acid 86 - 01/17 EEG showed no focal abnormalities, potentially epileptogenic discharges, or abnormal slow activity. - Continue Keppra 1000mg PO Q12h - Unable to provide PRN benzodiazepine d/t risk of respiratory depression; instead, I ordered lorazepam 4mg IV x 1 dose (01/22/2025, 1:23pm) and patient's generalized seizure ended just a few minutes before administration (01/22/2025, 1:36pm) of this medication. - MRI brain neg for acute intracranial pathology #Hypomagnesemia, RECURRENT with Mg 1.6 mg/dL (01/22/2025, 8:03am). cf., admission Mg 1.1 mg/dL (01/16/2025, 9:16am). Etiology of recurrent hypomagnesemia is most probably due to bumex 1mg PO qam-mediated magne-uresis. Hence, I have opted to supplement with magnesium sulfate 1g IV x 4 bags (starting on 01/22/2025, 6:30pm). I will check repeat Mg level in the 01/23/2025 am. #PRESUMED obstructive sleep apnea -Reportedly was supposed to get CPAP at home but has not been done; instead, Case Management Service will arrange for outpatient sleep study, which must be performed to confirm the diagnosis of presumed CORINA -He is following with pulmonology. -Monitor pulse ox, CPAP nightly while admitted #Recent hx of cellulitis right lower extremity. -Currently healing well on ceftriaxone 2g IV daily (day #1 on 01/18/2025, 6:18pm). With a recent right fibular fracture August 2024 from seizure. #Panhypopituitary -Follows with endocrinology. -He is normotensive if he should become hemodynamically unstable we will consider hydrocortisone IV 100 mg Q6h #Microscopic hematuria - He has not seen urology. Would recommend outpatient urological follow-up for evaluation Chronic stable diagnoses: #GERD- Continue medications. #Bipolar disorder- Continue home medications. #Diabetes mellitus type 2- Basal bolus insulin regimen ordered on admission. 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 #A fib- With watchman device and plavix + aspirin. Code: DNR/DNI DVT ppx: Lovenox Dispo: PT / OT eval pending Admission and Anticipated Discharge Date Admission Date: January 16, 2025 Subjective After I told you I wanted to go home, and I was calling my to come pick me up, I had a seizure. I am ok now." Review of Systems Constitutional: Negative for antecedent/coincident fevers, chills, diaphoresis, cough, wheeze, sore throat, hemoptysis, chest pains, palpitations, pleurisy, nausea, vomiting, diarrhea, abdominal pain, pelvic pain, hematemesis, hematochezia, melena, hematuria, dysuria, frequency, urgency, headaches, dizziness, lightheadedness, visual changes, hearing changes, weakness, falls, syncope, trauma, travel history, sick contacts, or food/drug ingestions novel or new. All other review of systems are reported as negative by the patient on 0 01/22/2025. Physical Exam Constitutional: General: Comfortable, coherent, cooperative. Wide awake and alert. Not confused, lethargic, or obtunded. Patient speaks in complete, fluent, and articulate sentences without pause, interruption, cough, or wheeze. HEENT: Normocephalic, atraumatic. Pupils equally round and reactive to light. Extra-ocular muscles intact. No nystagmus, gaze paresis, anisocoria, miosis, mydriasis, hyphema, scleral injection, conjunctivitis, or pterygium. No rhinorrhea or otorrhea. No pharyngeal discharge or erythema. Neck: Supple, no stridor, bruit, goiter, hepatojugular reflux. Jugular venous pressure is estimated to be 8 cm above the sternal angle of Roberto, which is estimated to be 5 cm above the level of the right atrium. Lymph: No anterior/posterior cervical, supraclavicular/infraclavicular, axillary, epitrochlear, or inguinal adenopathy. Chest: Symmetric rise and fall with respirations. Lungs: Clear to auscultation and percussion. No audible expiratory wheeze, egophony, pectoriloquy, increase in tactile fremitus, or flatness/dullness to percussion at the bases. Heart: RRR, S1 and S2 noted. No S3 or S4 summation gallop noted. No tripartite friction rub. Grade II/ early systolic murmur @ LLSB without radiation to the carotids, axilla, or back, and which remains invariant in regards to the respiratory cycle. Abdomen: Soft, non-tender, non-distended. No rebound, guarding, Moore's sign, or organomegaly. Bowel sounds sounds auscultated in all 4 quadrants. Extremities: No clubbing, cyanosis, or edema. 2+ pedal pulses bilaterally. Skin: No decubitus ulcer, exanthem, or enanthem. Neurology: Alert and oriented to person, place, time, and situation. DTR+ and symmetric. 5/5 motor strength in all 4 extremities, both proximally and distally. No pronator drift. No facial droop. No tremors, tics, or myoclonus. Urology: No puentes. No urethral discharge. Psychiatry: No suicidal ideation. No homicidal ideation. Results & Data Results & Data Vital Signs (Past 12 Hours) Vital Signs Temp Pulse Pulse Pulse Resp BP BP 01/22/25 15:25 36.9 C 79 17 133/79 01/22/25 14:29 73 01/22/25 13:38 129/79 01/22/25 13:37 155/92 H 01/22/25 13:37 138/80 01/22/25 12:03 56 L 01/22/25 11:22 37.0 C 73 18 131/89 01/22/25 09:00 01/22/25 07:27 36.4 C L 58 L 18 127/74 01/22/25 07:21 67 16 Pulse Ox O2 Del Method O2 Flow Rate 01/22/25 15:25 95 Nasal Cannula 1 01/22/25 14:29 01/22/25 13:38 01/22/25 13:37 01/22/25 13:37 01/22/25 12:03 01/22/25 11:22 93 Nasal Cannula 1 01/22/25 09:00 High Flow Nasal Cannula 3 01/22/25 07:27 98 Oxymask, Nebulizer 01/22/25 07:21 98 Nasal Cannula 3 PG Care Time/CCT Total # of Minutes Spent Total Time Spent with Patient: Total time spent is greater than 50% in coordination of care (as documented) at patient's floor/unit and/or counseling patient: Coding Level of Care Code 53835 SUB INP/OBS CARE 3/50MIN Diagnoses Acute hypoxic respiratory failure J96.01 Influenza A J10.1 Seizure disorder G40.909
--- NOTE | 2025-01-23 17:09 | Hospitalist Progress Note ---
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, on 3 liters/minute O2 via nasal cannula [id number] at home, CAD on rosuvastatin 20mg PO qam, HTN on bumex 1mg PO qam, lisinopril 40mg PO daily, metoprolol 25mg PO qhs, bipolar disorder on abilify 5mg PO daily, duloxetine 60mg PO daily, lithium 300mg PO qam and qhs, valproic acid 1000mg PO daily, insomnia disorder on mirtazapine 30mg PO qhs and trazodone 100mg PO qhs, 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 5mg PO qhs, panic attack on propanolol 120mg PO qhs, migraine headache on Nurtec ODT 75mg PO daily prn migraine headache, demyelinating disease not otherwise specified, generalized seizure disorder on lacosamide 150mg PO bid, levetiracetam 1000mg PO q12, valproic acid 1000mg PO daily, and lorazepam 0.5mg PO daily prn seizure, pituitary tumor s/p resections x 2 (first resection ~19 years ago @ [facility] ([facility]); second resection ~5 years ago @ [facility]), 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 for: (a) vasopressin deficiency, treated with desmopressin 0.4mg PO bid, (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 Acute hypoxic respiratory failure due to acute influenza A infection with no obvious infiltrate/consolidation on admission 01/16/2025 portable CXR. The following medical issues are being addressed: Acute Influenza A (positive nasal detection on 01/16/2025, 9:15am) w/ Acute Hypoxic Respiratory Failure +/- Aspiration Pneumonia vs Pneumonitis - Patient presented w/ new influenza A Infection causing AHRF on chronic resp failure requiring 3L at baseline Likely multifactorial presentation in a/w restrictive lung disease and elevated BMI 38 - Chest imaging CXR 01/16: indicated mild CHF w/o effusion or consolidation CXR 01/17: indicated potential RLL infiltrate and L pleural effusion CXR 01/18: Reduced lung volumes with patchy bilateral airspace opacities. - Potential aspiration during seizure episodes inpatient (chewing tobacco during 2 of the episodes) Empiric treatment with Zosyn 2.5 g IV Q8h Transitioned to Ceftriaxone 2g IV Q24h 01/18 01/19 Passed bedside swallow, diet advanced to soft bites - 01/16 blood culture w/o growth - Continue pulmonary toilet (incentive spirometry/flutter valve) - Continue Duonebs PRN and Mucinex - Continue Tamiflu 01/18-01/21 - Ongoing fluctuations in mental status - Vitals stable, O2 requirement returned to baseline 3L NC Would consider CT chest if clinically worsened from pulmonary perspective Chronic seizure disorder with increased frequency of seizure activity after being diagnosed with acute influenza A infection (positive nasal detection on 01/16/2025, 9:15am) - Seizures inpatient: 01/15 (x2), 01/15, 01/17, 01/18, 01/22 (x2) - Seizure precautions continued - 01/17 Li 0.2, valproic acid 86 - 01/17 EEG showed no focal abnormalities, potentially epileptogenic discharges, or abnormal slow activity. - Continue Keppra 1000mg PO Q12h - Unable to provide PRN benzodiazepine d/t risk of respiratory depression; instead, I ordered lorazepam 4mg IV x 1 dose (01/22/2025, 1:23pm) and patient's generalized seizure ended just a few minutes before administration (01/22/2025, 1:36pm) of this medication. - MRI brain neg for acute intracranial pathology #Hypomagnesemia, RECURRENT with Mg 1.6 mg/dL (01/22/2025, 8:03am). cf., admission Mg 1.1 mg/dL (01/16/2025, 9:16am). Etiology of recurrent hypomagnesemia was most probably due to bumex 1mg PO qam-mediated magne-uresis. Hence, I opted to supplement with magnesium sulfate 1g IV x 4 bags (starting on 01/22/2025, 6:30pm), and acute hypomagnesemia RESOLVED with post-supplement Mg 2.1 mg/dL (01/23/2025, 10:09am). I will check repeat Mg level in the 01/24/2025 am. #PRESUMED obstructive sleep apnea -Reportedly was supposed to get CPAP at home but has not been done; instead, Case Management Service will arrange for outpatient sleep study, which must be performed to confirm the diagnosis of presumed CORINA -He is following with pulmonology. -Monitor pulse ox, CPAP nightly while admitted #Recent hx of cellulitis right lower extremity. -Currently healing well on ceftriaxone 2g IV daily (day #1 on 01/18/2025, 6:18pm). With a recent right fibular fracture August 2024 from seizure. #Panhypopituitarism -Follows with endocrinology. -He is normotensive if he should become hemodynamically unstable we will consider hydrocortisone IV 100 mg Q6h #Persistent microscopic hematuria - He has not seen urology. Would recommend outpatient urological follow-up for evaluation of persistent microscopic hematuria (first noted on 12/02/2023, 1:47pm U/A with microscopy, and again on 05/29/2024, 9:54am U/A with microscopy, and again on 11/19/2024, 4:58pm U/A with microscopy, and again on 01/16/2025, 9:34am U/A with microscopy) Chronic stable diagnoses: #GERD- Asymptomatic on famotidine 20mg PO daily. #Bipolar disorder- Continue home medications. #Diabetes mellitus type 2- Basal bolus insulin regimen ordered on admission. 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 #A fib- With watchman device and plavix + aspirin. Code: DNR/DNI DVT ppx: Lovenox Dispo: PT / OT eval pending Admission and Anticipated Discharge Date Admission Date: January 16, 2025 Subjective "I had two more seizures last night, [id number], starting at 8:00pm (01/22/2025). I was in bed. I did not fall out of bed. I peed in the bed, like I do when I have seizures. I woke up confused, like I do when I have seizures. I felt wiped out, no energy, like I do when I have seizures. I didn't have seizures so frequently before I got the influenza. I am ok now." Review of Systems Review of Systems: Comprehensive ROS neg Constitutional: Negative for antecedent/coincident fevers, chills, diaphoresis, cough, wheeze, sore throat, hemoptysis, chest pains, palpitations, pleurisy, nausea, vomiting, diarrhea, abdominal pain, pelvic pain, hematemesis, hematochezia, melena, hematuria, dysuria, frequency, urgency, headaches, dizziness, lightheadedness, visual changes, hearing changes, weakness, falls, syncope, trauma, travel history, sick contacts, or food/drug ingestions novel or new. All other review of systems are reported as negative by the patient on 01/23/2025. Physical Exam Constitutional: General: Comfortable, coherent, cooperative. Wide awake and alert. Not confused, lethargic, or obtunded. Patient speaks in complete, fluent, and articulate sentences without pause, interruption, cough, or wheeze. HEENT: Normocephalic, atraumatic. Pupils equally round and reactive to light. Extra-ocular muscles intact. No nystagmus, gaze paresis, anisocoria, miosis, mydriasis, hyphema, scleral injection, conjunctivitis, or pterygium. No rhinorrhea or otorrhea. No pharyngeal discharge or erythema. Neck: Supple, no stridor, bruit, goiter, hepatojugular reflux. Jugular venous pressure is estimated to be 8 cm above the sternal angle of Roberto, which is estimated to be 5 cm above the level of the right atrium. Lymph: No anterior/posterior cervical, supraclavicular/infraclavicular, axillary, epitrochlear, or inguinal adenopathy. Chest: Symmetric rise and fall with respirations. Lungs: Clear to auscultation and percussion. No audible expiratory wheeze, egophony, pectoriloquy, increase in tactile fremitus, or flatness/dullness to percussion at the bases. Heart: RRR, S1 and S2 noted. No S3 or S4 summation gallop noted. No tripartite friction rub. Grade II/ early systolic murmur @ LLSB without radiation to the carotids, axilla, or back, and which remains invariant in regards to the respiratory cycle. Abdomen: Soft, non-tender, non-distended. No rebound, guarding, Moore's sign, or organomegaly. Bowel sounds sounds auscultated in all 4 quadrants. Extremities: No clubbing, cyanosis, or edema. 2+ pedal pulses bilaterally. Skin: No decubitus ulcer, exanthem, or enanthem. Neurology: Alert and oriented to person, place, time, and situation. DTR+ and symmetric. 5/5 motor strength in all 4 extremities, both proximally and distally. No pronator drift. No facial droop. No tremors, tics, or myoclonus. Urology: No puentes. No urethral discharge. Psychiatry: No suicidal ideation. No homicidal ideation. Results & Data Results & Data Vital Signs (Past 12 Hours) Vital Signs Temp Pulse Pulse Resp BP BP Pulse Ox 01/23/25 15:53 36.7 C 68 19 142/94 H 96 01/23/25 11:29 36.7 C 73 20 144/78 H 95 01/23/25 09:00 01/23/25 09:00 67 01/23/25 07:43 36.4 C L 71 20 148/93 H 95 01/23/25 07:21 71 20 97 O2 Del Method O2 Flow Rate 01/23/25 15:53 Nasal Cannula 3 01/23/25 11:29 Nasal Cannula 3 01/23/25 09:00 Nasal Cannula 2 01/23/25 09:00 01/23/25 07:43 Nasal Cannula 01/23/25 07:21 Nasal Cannula 2 Laboratory Results 01/23/25 01/23/25 01/23/25 16:15 11:28 10:09 POC Glucose 107 H 93 Magnesium 2.1 01/23/25 01/22/25 07:36 20:21 POC Glucose 111 H 128 H Magnesium PG Care Time/CCT Total # of Minutes Spent Total Time Spent with Patient: Total time spent is greater than 50% in coordination of care (as documented) at patient's floor/unit and/or counseling patient: Coding Level of Care Code 53681 SUB INP/OBS CARE 2/35MIN Diagnoses Acute hypoxic respiratory failure J96.01 Influenza A J10.1 Seizure disorder G40.909
--- NOTE | 2025-01-24 09:05 | Neurology Consultation ---
Date of Consultation January 24, 2025 Assessment & Plan (1) Seizure disorder: History of Present Illness Attending Physician: Davy Benoit MD, PhD History of Present Illness S: pt this morning doing well. he states he had "seizure" last night. no clear description other than he had seizure like event. EEG and mri brain again negative. pt not in distress currently and no sign of seizures. pt is followed extensively by neurology clinic by Dr. villa and lucero vaca for seizure and pseudoseizures. chart reviewed. Hospitalist note: 54 years old male with PMH of DNR/DNI @ home, obesity with BMI 38.8 (height 152.4 cm; weight 122.8 kg), presumed CORINA, GERD on famotidine 20mg PO daily and pantoprazole 40mg PO bid, lumbar stenosis w/ claudication, dysphagia, insuin-dependent DM2 with HbA1c 6.0% (01/17/2025, 2:53am) on lantus 12 units SQ qhs and metformin 1000mg PO bid, BPH on dutasteride 0.5mg PO qam, chronic venous insufficiency, chronic hypoxic respiratory failure due to cloth examiner's disease, on 3 liters/minute O2 via nasal cannula [id number] at home, CAD on rosuvastatin 20mg PO qam, HTN on bumex 1mg PO qam, lisinopril 40mg PO daily, metoprolol 25mg PO qhs, bipolar disorder on abilify 5mg PO daily, duloxetine 60mg PO daily, lithium 300mg PO qam and qhs, valproic acid 1000mg PO daily, insomnia disorder on mirtazapine 30mg PO qhs and trazodone 100mg PO qhs, 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 Acute hypoxic respiratory failure due to acute influenza A infection with no obvious infiltrate/consolidation on admission 01/16/2025 portable CXR. Allergies Allergy/AdvReac Type Severity Reaction Status Date / Time clindamycin Allergy Intermediate SWELLING Verified 12/18/24 11:27 Iodinated Contrast Media Allergy Intermediate face/eye Verified 12/18/24 11:27 swelling Quinolones Allergy Intermediate HIVES Verified 12/18/24 11:27 Home Medications Medication Instructions Recorded Confirmed Type lithium carbonate 300 mg tablet 300 mg PO AMHS 06/04/22 01/16/25 History mirtazapine 30 mg tablet (Remeron) 30 mg PO HS 06/23/22 01/16/25 History blood sugar diagnostic (OneTouch 08/06/22 12/18/24 History Verio test strips) fluticasone propionate 50 1 spray intranasal HS PRN allergy 03/16/23 01/16/25 Rx mcg/actuation nasal symptoms #16 grams spray,suspension (Flonase Allergy Relief) FreeStyle Rosalie 2 [place] (flash #1 ea 05/13/23 12/18/24 Rx glucose scanning reader) rimegepant 75 mg disintegrating 75 mg PO DAILY PRN Migraine 09/14/23 01/16/25 Rx tablet (Nurtec ODT) Headache #8 tabs blood sugar diagnostic (OneTouch #150 ea 11/22/23 12/18/24 Rx Verio test strips) blood-glucose meter (OneTouch #1 ea 11/22/23 12/18/24 Rx Verio Reflect Meter) insulin syringe-needle U-100 1 mL #300 ea 11/22/23 12/18/24 Rx 30 gauge x 1/2" (BD Insulin Syringe Ultra-Fine) lancets 33 gauge (OneTouch Delica #150 ea 11/22/23 12/18/24 Rx Plus Lancet) albuterol sulfate 90 mcg/actuation 2 inh inhalation Q6H PRN shortness 02/24/24 01/16/25 Rx aerosol inhaler (Ventolin HFA) of breath or wheezing #6.7 grams metformin 1,000 mg tablet 1,000 mg PO BID #180 tabs 03/03/24 01/16/25 Rx dutasteride 0.5 mg capsule 0.5 mg PO QAM 04/06/24 01/16/25 History glucagon 3 mg/actuation nasal 3 mg intranasal ONCE PRN Severe 04/06/24 01/16/25 History spray (Baqsimi) Hypoglycemia FreeStyle Rosalie 2 Sensor (flash #6 ea 05/02/24 12/18/24 Rx glucose sensor) testosterone 2 pump topical PM #75 grams 05/04/24 01/16/25 Rx aripiprazole 5 mg tablet 5 mg PO DAILY 05/29/24 01/16/25 History nystatin 100,000 unit/gram topical 1 applic topical BID #30 grams 06/19/24 01/16/25 Rx cream insulin glargine 100 unit/mL (3 12 unit subcut HS 07/19/24 01/16/25 History mL) subcutaneous pen (Lantus Solostar U-100 Insulin) ipratropium 0.5 mg-albuterol 3 mg 3 ml inhalation QID PRN wheezing 07/31/24 01/16/25 Rx (2.5 mg base)/3 mL nebulization #90 mL soln nebulizers (Compact Compressor #1 ea 07/31/24 12/18/24 Rx Nebulizer) Botox 200 unit injection See Rx Instructions IM .COMPLEX #1 09/18/24 01/16/25 Rx (onabotulinumtoxinA) ea cholecalciferol (vitamin D3) 50 50 mcg PO QPM #90 caps 09/19/24 01/16/25 Rx mcg (2,000 unit) capsule rosuvastatin 20 mg tablet 20 mg PO QAM #90 tabs 09/19/24 01/16/25 Rx pantoprazole 40 mg tablet,delayed 40 mg PO BID #60 tabs 09/21/24 01/16/25 Rx release trazodone 100 mg tablet 100 mg PO HS 10/03/24 01/16/25 History levothyroxine 200 mcg tablet 200 mcg PO QAM #30 tabs 10/22/24 01/16/25 Rx pen needle, diabetic 32 gauge x #100 ea 10/23/24 12/18/24 Rx 5/32" (BD Vy 2nd Gen Pen Needle) bumetanide 1 mg tablet 1 mg PO QAM #30 tabs 10/26/24 01/16/25 Rx vitamin B complex (Vitamins B 1 cap PO QAM #30 caps 10/26/24 01/16/25 Rx Complex capsule) hydrocodone 7.5 mg-acetaminophen 1 tab PO Q6H 11/19/24 01/16/25 History 325 mg tablet prazosin 5 mg capsule 5 mg PO HS 11/19/24 01/16/25 History propranolol 120 mg capsule,24 120 mg PO HS 11/19/24 01/16/25 History hr,extended release tirzepatide 2.5 mg/0.5 mL 2.5 mg (0.5 mL) subcut Q7D #2 mL 11/22/24 01/16/25 Rx subcutaneous pen injector (Unruly) lorazepam 0.5 mg tablet 0.5 mg PO DAILY PRN Seizure 11/23/24 01/16/25 History Activity levetiracetam 1,000 mg tablet 1,000 mg PO Q12H #60 tabs 11/26/24 01/16/25 Rx aspirin 81 mg tablet,delayed 81 mg PO QAM #90 tabs 11/27/24 01/16/25 Rx release duloxetine 60 mg capsule,delayed 60 mg PO BID 11/27/24 01/16/25 History release ferrous sulfate 325 mg (65 mg 325 mg PO .qod 11/27/24 01/16/25 History iron) tablet desmopressin 0.2 mg tablet 0.4 mg (2 x 0.2 mg) PO BID #120 11/30/24 01/16/25 Rx tabs metoprolol succinate 25 mg 25 mg PO HS #90 tabs 11/30/24 01/16/25 Rx tablet,extended release 24 hr somatropin 5 mg/1.5 mL (3.3 mg/mL) 0.3 mg (0.09 mL) subcut QPM #2 11/30/24 01/16/25 Rx subcutaneous pen injector syringes (Norditropin FlexPro) clopidogrel 75 mg tablet (Plavix) 75 mg PO DAILY 12/03/24 01/16/25 History budesonide 0.5 mg/2 mL suspension 0.5 mg (2 mL) inhalation DAILY #60 12/04/24 01/16/25 Rx for nebulization mL lisinopril 40 mg tablet 40 mg PO DAILY #90 tabs 12/06/24 01/16/25 Rx divalproex 500 mg tablet,delayed 1,000 mg (2 x 500 mg) PO DAILY #60 12/14/24 01/16/25 Rx release tabs hydrocortisone 10 mg tablet 10 mg PO UD #135 tabs 12/19/24 01/16/25 Rx lacosamide 150 mg tablet 150 mg PO BID #60 tabs 12/26/24 01/16/25 Rx famotidine 20 mg tablet (Acid 20 mg PO DAILY 6 weeks #42 tabs 01/11/25 01/16/25 Rx Cv Tech (famotidine)) arformoterol 15 mcg/2 mL solution 2 ml inhalation BID 01/16/25 01/16/25 History for nebulization (Brovana) oxybutynin chloride 5 mg 5 mg PO DAILY 01/16/25 01/16/25 History tablet,extended release 24 hr Patient History Medical History Presence of Watchman left atrial appendage closure device Status epilepticus (09/13/24) Knee hemarthrosis, right (09/13/24) Acute on chronic anemia (09/13/24) Acute metabolic encephalopathy (09/13/24) Acute hypoxic respiratory failure (09/13/24) Laceration of toe of right foot Closed fracture of right fibula with malunion Type 2 diabetes mellitus Right fibular fracture Acute on chronic respiratory failure with hypoxia and hypercapnia Shortness of breath Acute hypercapnic respiratory failure Acute hypercapnic respiratory failure Chronic respiratory failure with hypoxia Obesity CKD (chronic kidney disease), stage III Peripheral edema Seizure disorder Atrial fibrillation (02/15/24) Chronic low back pain Panhypopituitarism Lumbosacral radiculopathy Toxic encephalopathy Chest pain Acute dyspnea Acute CHF Hypoglycemia Syncope and collapse Internal hemorrhoids Recurrent seizures Pituitary diabetes insipidus Spondylolysis, lumbar region Right lumbar radiculopathy HTN (hypertension) Bipolar disorder Adrenal insufficiency Pituitary adenoma Diabetes Bleeding (02/16/24) Acute blood loss anemia (02/19/24) Hyperactive gag reflex BRCA gene positive Family history of BRCA gene mutation PTSD (post-traumatic stress disorder) Epidural lipomatosis Chronic left sacroiliac pain Benzodiazepine overdose Presence of cardiac device Hx of fracture of foot Fracture of fibula, right, closed Cerebral concussion Orthostatic hypotension Pseudoseizures Sensorineural hearing loss of both ears Rectal bleeding History of COVID-19 Mitral valve regurgitation Vertigo Panhypopituitarism Lower extremity edema Elevated LFTs Bilateral hand pain Pituitary neoplasm Kidney stones Prostate mass Bladder mass Obstructive sleep apnea of adult Surgical History S/P TURP (status post transurethral resection of prostate) History of lumbar fusion History of cardiac cath S/P epidural steroid injection History of lithotripsy Status post right foot surgery History of bladder surgery History of prostate surgery History of colonoscopy History of esophagogastroduodenoscopy (EGD) History of tooth extraction History of wisdom tooth extraction History of brain surgery Family History Grandmother (Paternal) Family history of diabetes mellitus Aunt Family history of diabetes mellitus Uncle Family history of diabetes mellitus Father Prostate cancer Heart disease Osteoarthritis Mother Cardiac disorder Grandmother (Maternal) Myocardial infarction Other Asthma Cancer Hypertension No family history of adverse response to anesthesia No family history of bleeding disorder Stroke Denies family history of Ovarian cancer Breast cancer Colorectal cancer Social History Smoking Status: Never smoker Tobacco Type: Smokeless Tobacco (Dip or Chew) Second Hand Exposure: No; Do You Dip or Chew Tobacco: No; Hx Alcohol Use: No Hx Substance Use: No Preferred Language: Divehi Communication Ability: Impaired Communication Ability Comment: Unable to obtain due to patient condition. Visual Impairment: Limited Hearing Ability: Normal Transportation Program Director Required: No Beliefs That Will Affect Care: None marital status: Single Current Living Situation: Family Current Living Situation Comment: and daughter current occupational status: disabled How many Children do You have: 3 How many Children do You have Comment: able to assist with care if needed Feels Safe at Home: Yes Childhood Exposure to Second-Hand Smoke: Yes (parents smoked) Diet: regular Diet Comment: going to be starting low carb/low calorie diet. caffeine: No (1/2 20 oz bottle of mountain dew. ) during the past year weight has: increased > 10 lbs Physical Activity Frequency: Daily Physical Activity Frequency Comment: walking, 1.5 miles daily. Seatbelt Use: always Do you think of yourself as: straight/heterosexual Gender Identity: Male Assistive Devices: Cane, Oxygen - Continuous and Walker Exam (Neuro) Physical Exam: HEENT: normocephalic grossly Neuro: Mental: AOx4, fluent speech, normal comprehension, no apraxia, no L/R confusion, no neglect CN: PERRL, Full EOM, symmetric face, midline T/U/P, grossly full ROM neck Motor: No abnormal movements, moving all limbs well. Coord: intact Impression: 54 yo male with known seizure disorder and Pseudoseizure in setting of respiratory dysfunction and significant psychiatric history. Pt already on 3 seizure meds and in my opinion, the events may not be truly seizure events. Pt likely having increasing spells due to his respiratory issues (as he did in the past), sleep deprivation, increase stress and anxiety. Recommendations: no need to change his seizure meds. consider psych consult for his mood disorders and stress, which likely contributing to his pseudoseizure/spells. improve sleep there is no need to get EEG every time he has spell/seizure, unless pt is in Status. he has now had more than 7 EEGs and alf EEGs and it does not change his management. continue supportive care and metabolic disorder management. will sign off. call again if new question. Chart reviewed I have spent more than 50% educating patient about potential diagnosis and neurological evaluation and coordinating care with patient's treatment team. Total time spent (including chart review and coordination of care): 55 min (this includes chart review). Results & Data Vital Signs (Past 12 Hours) Vital Signs Temp Pulse Pulse Resp BP Pulse Ox O2 Del Method 01/24/25 07:11 36.3 C L 18 148/96 H 100 Nasal Cannula 01/24/25 07:02 86 18 94 Room Air 01/24/25 04:16 95 Nasal Cannula 01/24/25 03:00 36.7 C 69 18 133/74 98 CPAP 01/24/25 02:55 55 L 14 94 01/23/25 23:13 36.7 C 74 18 97/67 L 93 BiPAP 01/23/25 23:10 73 14 95 01/23/25 21:57 75 01/23/25 21:30 99 BiPAP 01/23/25 21:00 Nasal Cannula O2 Flow Rate FiO2 01/24/25 07:11 3 01/24/25 07:02 4 01/24/25 04:16 2 01/24/25 03:00 01/24/25 02:55 35 01/23/25 23:13 01/23/25 23:10 35 01/23/25 21:57 01/23/25 21:30 01/23/25 21:00 PG Care Time/CCT Total # of Minutes Spent Total Time Spent with Patient: Total time spent is greater than 50% in coordination of care (as documented) at patient's floor/unit and/or counseling patient: Coding Level of Care Code 33716 IN/OBS CONSULT LVL 3,45M Diagnoses Seizure disorder G40.909
[2025-01-24] MEDS: LORazepam 2 MG/1 ML VIAL IV STA (14:24)
--- NOTE | 2025-01-24 16:52 | Hospitalist Progress Note ---
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, on 3 liters/minute O2 via nasal cannula [id number] at home, CAD on rosuvastatin 20mg PO qam, HTN on bumex 1mg PO qam, lisinopril 40mg PO daily, metoprolol 25mg PO qhs, bipolar disorder on abilify 5mg PO daily, duloxetine 60mg PO daily, lithium 300mg PO qam and qhs, valproic acid 1000mg PO daily, insomnia disorder on mirtazapine 30mg PO qhs and trazodone 100mg PO qhs, 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 5mg PO qhs, panic attack on propanolol 120mg PO qhs, migraine headache on Nurtec ODT 75mg PO daily prn migraine headache, demyelinating disease not otherwise specified, generalized seizure disorder on lacosamide 150mg PO bid, levetiracetam 1000mg PO q12, valproic acid 1000mg PO daily, and lorazepam 0.5mg PO daily prn seizure, pituitary tumor s/p resections x 2 (first resection ~19 years ago @ [facility] ([facility]); second resection ~5 years ago @ [facility]), 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 for: (a) vasopressin deficiency, treated with desmopressin 0.4mg PO bid, (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 Acute hypoxic respiratory failure due to acute influenza A infection with no obvious infiltrate/consolidation on admission 01/16/2025 portable CXR. The following medical issues are being addressed: Acute Influenza A (positive nasal detection on 01/16/2025, 9:15am) w/ Acute Hypoxic Respiratory Failure +/- Aspiration Pneumonia vs Pneumonitis - Patient presented w/ new influenza A Infection causing AHRF on chronic resp failure requiring 3L at baseline Likely multifactorial presentation in a/w restrictive lung disease and elevated BMI 38 - Chest imaging CXR 01/16: indicated mild CHF w/o effusion or consolidation CXR 01/17: indicated potential RLL infiltrate and L pleural effusion CXR 01/18: Reduced lung volumes with patchy bilateral airspace opacities. - Potential aspiration during seizure episodes inpatient (chewing tobacco during 2 of the episodes) Empiric treatment with Zosyn 2.5 g IV Q8h Transitioned to Ceftriaxone 2g IV Q24h 01/18 01/19 Passed bedside swallow, diet advanced to soft bites - 01/16 blood culture w/o growth - Continue pulmonary toilet (incentive spirometry/flutter valve) - Continue Duonebs PRN and Mucinex - Continue Tamiflu 01/18-01/21 - Ongoing fluctuations in mental status - Vitals stable, O2 requirement returned to baseline 3L NC Would consider CT chest if clinically worsened from pulmonary perspective Chronic seizure disorder with increased frequency of seizure activity after being diagnosed with acute influenza A infection (positive nasal detection on 01/16/2025, 9:15am) - Seizures inpatient: 01/15 (x2), 01/15, 01/17, 01/18, 01/22 (x2) - Seizure precautions continued - 01/17 Li 0.2, valproic acid 86 - 01/17 EEG showed no focal abnormalities, potentially epileptogenic discharges, or abnormal slow activity. - Continue Keppra 1000mg PO Q12h - Unable to provide PRN benzodiazepine d/t risk of respiratory depression; instead, I ordered lorazepam 4mg IV x 1 dose (01/22/2025, 1:33pm) and patient's generalized seizure ended just a few minutes before administration (01/22/2025, 1:36pm) of this medication. Subsequently, I ordered lorazepam 4mg IV x 1 dose (01/24/2025, 2:15pm) and patient's generalized seizure ended just a few minutes before administration (01/24/2025, 2:24pm) of this medication. - MRI brain neg for acute intracranial pathology #Hypomagnesemia, RECURRENT with Mg 1.6 mg/dL (01/22/2025, 8:03am). cf., admission Mg 1.1 mg/dL (01/16/2025, 9:16am). Etiology of recurrent hypomagnesemia was most probably due to bumex 1mg PO qam-mediated magne-uresis. Hence, I opted to supplement with magnesium sulfate 1g IV x 4 bags (starting on 01/22/2025, 6:30pm), and acute hypomagnesemia RESOLVED with post-supplement Mg 2.1 mg/dL (01/23/2025, 10:09am). Current Mg level remains normal at 1.8 mg/dL (01/24/2025, 5:55am). I will check repeat Mg level in the 01/25/2025 am. #PRESUMED obstructive sleep apnea -Reportedly was supposed to get CPAP at home but has not been done; instead, Case Management Service will arrange for outpatient sleep study, which must be performed to confirm the diagnosis of presumed CORINA -He is following with pulmonology. -Monitor pulse ox, CPAP nightly while admitted #Recent hx of cellulitis right lower extremity. -Currently healing well on ceftriaxone 2g IV daily (day #1 on 01/18/2025, 6:18pm). With a recent right fibular fracture August 2024 from seizure. #Panhypopituitarism -Follows with endocrinology. -He is normotensive if he should become hemodynamically unstable we will consider hydrocortisone IV 100 mg Q6h #Persistent microscopic hematuria - He has not seen urology. Would recommend outpatient urological follow-up for evaluation of persistent microscopic hematuria (first noted on 12/02/2023, 1:47p m U/A with microscopy, and again on 05/29/2024, 9:54am U/A with microscopy, and again on 11/19/2024, 4:58pm U/A with microscopy, and again on 01/16/2025, 9:34am U/A with microscopy) Chronic stable diagnoses: #GERD- Asymptomatic on famotidine 20mg PO daily. #Bipolar disorder- Continue home medications. #Diabetes mellitus type 2- Basal bolus insulin regimen ordered on admission. 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 #A fib- With watchman device and plavix + aspirin. Code: DNR/DNI DVT ppx: Lovenox Dispo: PT / OT lillyal pending Admission and Anticipated Discharge Date Admission Date: January 16, 2025 Subjective "I had a seizure this afternoon (01/24/2025, 2:08pm). I was in bed. I did not fall out of bed. I peed in the bed, like I do when I have seizures. I woke up confused, like I do when I have seizures. I felt wiped out, no energy, like I do when I have seizures. I didn't have seizures so frequently before I got the influenza. I am ok now." Review of Systems Constitutional: Positive for generalized seizure (01/24/2025, 2:08pm). Negative for antecedent/coincident fevers, chills, diaphoresis, cough, wheeze, sore throat, hemoptysis, chest pains, palpitations, pleurisy, nausea, vomiting, diarrhea, abdominal pain, pelvic pain, hematemesis, hematochezia, melena, hematuria, dysuria, frequency, urgency, headaches, dizziness, lightheadedness, visual changes, hearing changes, weakness, falls, syncope, trauma, travel history, sick contacts, or food/drug ingestions novel or new. All other review of systems are reported as negative by the patient on 01/24/2025. Physical Exam Constitutional: General: Comfortable, coherent, cooperative. Wide awake and alert. Not confused, lethargic, or obtunded. Patient speaks in complete, fluent, and articulate sentences without pause, interruption, cough, or wheeze. HEENT: Normocephalic, atraumatic. Pupils equally round and reactive to light. Extra-ocular muscles intact. No nystagmus, gaze paresis, anisocoria, miosis, mydriasis, hyphema, scleral injection, conjunctivitis, or pterygium. No rhinorrhea or otorrhea. No pharyngeal discharge or erythema. Neck: Supple, no stridor, bruit, goiter, hepatojugular reflux. Jugular venous pressure is estimated to be 8 cm above the sternal angle of Roberto, which is estimated to be 5 cm above the level of the right atrium. Lymph: No anterior/posterior cervical, supraclavicular/infraclavicular, axillary, epitrochlear, or inguinal adenopathy. Chest: Symmetric rise and fall with respirations. Lungs: Clear to auscultation and percussion. No audible expiratory wheeze, egophony, pectoriloquy, increase in tactile fremitus, or flatness/dullness to percussion at the bases. Heart: RRR, S1 and S2 noted. No S3 or S4 summation gallop noted. No tripartite friction rub. Grade II/ early systolic murmur @ LLSB without radiation to the carotids, axilla, or back, and which remains invariant in regards to the respiratory cycle. Abdomen: Soft, non-tender, non-distended. No rebound, guarding, Moore's sign, or organomegaly. Bowel sounds sounds auscultated in all 4 quadrants. Extremities: No clubbing, cyanosis, or edema. 2+ pedal pulses bilaterally. Skin: No decubitus ulcer, exanthem, or enanthem. Neurology: Alert and oriented to person, place, time, and situation. DTR+ and symmetric. 5/5 motor strength in all 4 extremities, both proximally and distally. No pronator drift. No facial droop. No tremors, tics, or myoclonus. Urology: No puentes. No urethral discharge. Psychiatry: No suicidal ideation. No homicidal ideation. Results & Data Results & Data Vital Signs (Past 12 Hours) Vital Signs Temp Pulse Resp BP BP Pulse Ox O2 Del Method 01/24/25 14:28 88 20 122/80 94 Nasal Cannula 01/24/25 11:09 36.3 C L 68 17 130/76 95 Nasal Cannula 01/24/25 09:00 Nasal Cannula 01/24/25 07:11 36.3 C L 18 148/96 H 100 Nasal Cannula 01/24/25 07:02 86 18 94 Room Air O2 Flow Rate 01/24/25 14:28 2 01/24/25 11:09 01/24/25 09:00 3 01/24/25 07:11 3 01/24/25 07:02 4 Laboratory Results 01/24/25 01/24/25 01/24/25 16:13 11:17 07:07 POC Glucose 94 128 H 99 Magnesium 01/24/25 01/23/25 05:55 20:01 POC Glucose 121 H Magnesium 1.8 PG Care Time/CCT Total # of Minutes Spent Total Time Spent with Patient: Total time spent is greater than 50% in coordination of care (as documented) at patient's floor/unit and/or counseling patient: Coding Level of Care Code 89339 SUB INP/OBS CARE 2/35MIN Diagnoses Acute hypoxic respiratory failure J96.01 Influenza A J10.1 Seizure disorder G40.909
[2025-01-25 11:17] VITALS: PULSE 69
--- NOTE | 2025-01-25 14:27 | Discharge Summary ---
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, on 3 liters/minute O2 via nasal cannula [id number] at home, CAD on rosuvastatin 20mg PO qam, HTN on bumex 1mg PO qam, lisinopril 40mg PO daily, metoprolol 25mg PO qhs, bipolar disorder on abilify 5mg PO daily, duloxetine 60mg PO daily, lithium 300mg PO qam and qhs, valproic acid 1000mg PO daily, insomnia disorder on mirtazapine 30mg PO qhs and trazodone 100mg PO qhs, 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 Acute hypoxic respiratory failure due to acute influenza A infection with no obvious infiltrate/consolidation on admission 01/16/2025 portable CXR. The following medical issues were addressed while the patient remained in [facility] from 01/16/2025 through 01/25/2025: Acute Influenza A (positive nasal detection on 01/16/2025, 9:15am) w/ Acute Hypoxic Respiratory Failure +/- Aspiration Pneumonia vs Pneumonitis - Patient presented w/ new influenza A Infection causing AHRF on chronic resp failure requiring 3L at baseline Likely multifactorial presentation in a/w restrictive lung disease and elevated BMI 38 - Chest imaging CXR 01/16: indicated mild CHF w/o effusion or consolidation CXR 01/17: indicated potential RLL infiltrate and L pleural effusion CXR 01/18: Reduced lung volumes with patchy bilateral airspace opacities. - Potential aspiration during seizure episodes inpatient (chewing tobacco during 2 of the episodes) Empiric treatment with Zosyn 2.5 g IV Q8h Transitioned to Ceftriaxone 2g IV Q24h on 01/18/2025, 6:18pm (day #1/5); completed Ceftriaxone 2g IV Q24h on 01/22/2025, 5:23pm (day #5/). 01/19 Passed bedside swallow, diet advanced to soft bites - 01/16 blood culture w/o growth - s/p pulmonary toilet (incentive spirometry/flutter valve) - s/p Duonebs PRN and Mucinex - s/p Tamiflu 01/18-01/21 - Ongoing fluctuations in mental status - Vitals stable, O2 requirement returned to baseline 3L NC Would consider CT chest if clinically worsened from pulmonary perspective Chronic seizure disorder with increased frequency of seizure activity after being diagnosed with acute influenza A infection (positive nasal detection on 01/16/2025, 9:15am) - Seizures inpatient: 01/15 (x2), 01/15, 01/17, 01/18, 01/22 (x2) - Seizure precautions continued - 01/17 Li 0.2, valproic acid 86 - 01/17 EEG showed no focal abnormalities, potentially epileptogenic discharges, or abnormal slow activity. - Continue Keppra 1000mg PO Q12h - Unable to provide PRN benzodiazepine d/t risk of respiratory depression; instead, I ordered lorazepam 4mg IV x 1 dose (01/22/2025, 1:33pm) and patient's generalized seizure ended just a few minutes before administration (01/22/2025, 1:36pm) of this medication. Subsequently, I ordered lorazepam 4mg IV x 1 dose (01/24/2025, 2:15pm) and patient's generalized seizure ended just a few minutes before administration (01/24/2025, 2:24pm) of this medication. - MRI brain neg for acute intracranial pathology #Hypomagnesemia, RECURRENT with Mg 1.6 mg/dL (01/22/2025, 8:03am). cf., admission Mg 1.1 mg/dL (01/16/2025, 9:16am). Etiology of recurrent hypomagnesemia was most probably due to bumex 1mg PO qam-mediated magne-uresis. Hence, I opted to supplement with magnesium sulfate 1g IV x 4 bags (starting on 01/22/2025, 6:30pm), and acute hypomagnesemia RESOLVED with post-supplement Mg 2.1 mg/dL (01/23/2025, 10:09am). Repeat Mg level remains normal at 1.8 mg/dL (01/24/2025, 5:55am) and discharge Mg level also remainsnormal at 1.7 mg/dL (01/25/2025, 7:21am). #PRESUMED obstructive sleep apnea -Reportedly was supposed to get CPAP at home but has not been done; instead, Case Management Service will arrange for outpatient sleep study, which must be performed to confirm the diagnosis of presumed CORINA -He is following with pulmonology. -Monitor pulse ox, CPAP nightly while admitted #Recent hx of cellulitis right lower extremity. -Currently healing well on ceftriaxone 2g IV daily (day #1/ on 01/18/2025, 6:18pm; day #/ on 01/22/2025, 5:23pm). With a recent right fibular fracture August 2024 from seizure. #Panhypopituitarism -Follows with endocrinology. #Persistent microscopic hematuria - He has not seen urology. Would recommend outpatient urological follow-up for evaluation of persistent microscopic hematuria (first noted on 12/02/2023, 1 :47pm U/A with microscopy, and again on 05/29/2024, 9:54am U/A with microscopy, and again on 11/19/2024, 4:58pm U/A with microscopy, and again on 01/16/2025, 9:34am U/A with microscopy) Chronic stable diagnoses: #GERD- Asymptomatic on famotidine 20mg PO daily. #Bipolar disorder- Continue home medications. #Diabetes mellitus type 2- Basal bolus insulin regimen ordered on admission. 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 #A fib- With watchman device and plavix + aspirin. Code: DNR/DNI DVT ppx: Lovenox Dispo: PT / OT evaluations cleared patient for D/C back to patient's home. Discharge time, 35 minutes. Of this time period, 18 minutes were spent in coordinating patient's discharge. Admission HPI Per Admitting Provider Is a 54-year-old white male with a history of chronic hypoxemic respiratory failure with chronic oxygen dependency 3 L continuously. Over the last 36 hours he has had increased cough and increased shortness of breath. He has not had any need for increase in his oxygen requirements at home. In addition he had multiple seizures yesterday and a seizure earlier this morning he reports. He has a history of seizure disorder and he does have frequent seizures. He presented to the ER for further evaluation and treatment. In the ER he tested positive for influenza A acutely. Lactic acid was mildly elevated 2.5. Other significant laboratory studies that were abnormal including a magnesium of 1.1 and low normal potassium of 3.5. The patient was found to be mildly tachycardic and febrile in the ER. In the ER he had a liter normal saline in the nebulizer treatment. Recall admit the patient for further evaluation and treatment. We have ordered magnesium sulfate 4 g IV stat. Potassium chloride 3K riders 10 mEq each stat. We have ordered repeat stat lactic acid level. A repeat stat troponin level. A lithium level, and a Depakote level. All of these are pending at the time of this dictation. We have also ordered Tamiflu to commence immediately. Discharge Exam Constitutional General: Comfortable, coherent, cooperative. Wide awake and alert. Not confused, lethargic, or obtunded. Patient speaks in complete, fluent, and articulate sentences without pause, interruption, cough, or wheeze. HEENT: Normocephalic, atraumatic. Pupils equally round and reactive to light. Extra-ocular muscles intact. No nystagmus, gaze paresis, anisocoria, miosis, mydriasis, hyphema, scleral injection, conjunctivitis, or pterygium. No rhin orrhea or otorrhea. No pharyngeal discharge or erythema. Neck: Supple, no stridor, bruit, goiter, hepatojugular reflux. Jugular venous pressure is estimated to be 8 cm above the sternal angle of Roberto, which is estimated to be 5 cm above the level of the right atrium. Lymph: No anterior/posterior cervical, supraclavicular/infraclavicular, axillary, epitrochlear, or inguinal adenopathy. Chest: Symmetric rise and fall with respirations. Lungs: Clear to auscultation and percussion. No audible expiratory wheeze, egophony, pectoriloquy, increase in tactile fremitus, or flatness/dullness to percussion at the bases. Heart: RRR, S1 and S2 noted. No S3 or S4 summation gallop noted. No tripartite friction rub. Grade II/ early systolic murmur @ LLSB without radiation to the carotids, axilla, or back, and which remains invariant in regards to the respiratory cycle. Abdomen: Soft, non-tender, non-distended. No rebound, guarding, Moore's sign, or organomegaly. Bowel sounds sounds auscultated in all 4 quadrants. Extremities: No clubbing, cyanosis, or edema. 2+ pedal pulses bilaterally. Skin: No decubitus ulcer, exanthem, or enanthem. Neurology: Alert and oriented to person, place, time, and situation. DTR+ and symmetric. 5/5 motor strength in all 4 extremities, both proximally and distally. No pronator drift. No facial droop. No tremors, tics, or myoclonus. Urology: No puentes. No urethral discharge. Psychiatry: No suicidal ideation. No homicidal ideation. Discharge Plan Discharge Items Patient Disposition: Home - Self-Care Reason For Visit: CHEST PAIN, SOB, SYNCOPE, HEADACHE, COUGH, NAUSEA Discharge Diagnosis: chest pain, acute influenza A infection Condition on Discharge: Fair Activity: Resume your previous activity Non-emergency contact: Primary Care Provider Call non-emergency contact if: you have any medication questions Follow-up/Referrals: Larry Amaral MD [Primary Care Provider] - Diet: Carb Consistent or DM2, Heart Healthy, Low Fat and Low Sodium (2gm) Addtl Attending Provider Instructions: See your PCP Dr. Larry Amaral within 7 days of hospital discharge. See your Neurologist Dr. Gennaro Ordonez within 7 days of hospital discharge. Pending Studies at Discharge: No Stand-Alone Forms: [employer], Smoking Cessation Medications and DC Order Prescriptions: Continued clopidogrel [Plavix] 75 mg tablet 75 mg PO DAILY lithium carbonate 300 mg tablet 300 mg PO AMHS fluticasone propionate [Flonase Allergy Relief] 50 mcg/actuation spray,suspension 1 spray intranasal HS PRN (Reason: allergy symptoms) Qty: 16 0RF Rx Instructions: administer into each nostril (DME) insulin syringe-needle U-100 [BD Insulin Syringe Ultra-Fine] 1 mL 30 gauge x 1/2" syringe See Rx Instructions .Route Qty: 300 1RF Rx Instructions: use tid (DME) OneTouch Verio test strips Strip See Rx Instructions .MEDSUPPLY Qty: 150 5RF Rx Instructions: check blood sugars 4 times a day (DME) blood-glucose meter [OneTouch Verio Reflect Meter] Misc See Rx Instructions miscellaneous .MEDSUPPLY Qty: 1 0RF Rx Instructions: As directed (DME) lancets [OneTouch Delica Plus Lancet] 33 gauge misc See Rx Instructions .MEDSUPPLY Qty: 150 5RF Rx Instructions: As directed check blood sugars 4 times a day metformin 1,000 mg tablet 1,000 mg PO BID Qty: 180 3RF Hold Instructions: Per Dr Voss to hold as of 11/23/22 (DME) FreeStyle Rosalie 2 Sensor Kit See Rx Instructions .Route Qty: 6 3RF Rx Instructions: Change every 14 days testosterone 20.25 mg/1.25 gram (1.62 %) gel in metered-dose pump 2 pump TOP PM Qty: 75 5RF Rx Instructions: apply 1 pump amount over max area of EACH upper arm and shoulder PDMP Queried ok to fill 03/17/2023 DS nystatin 100,000 unit/gram cream 1 applic topical BID Qty: 30 0RF Botox 200 unit recon soln See Rx Instructions IM .COMPLEX Qty: 1 3RF Rx Instructions: 155 UNITS IM IN THE FACE AND NECK MUSCLES EVERY 12 WEEKS PER MIGRAINE PROTOCOL cholecalciferol (vitamin D3) 50 mcg (2,000 unit) capsule 50 mcg PO QPM Qty: 90 1RF rosuvastatin 20 mg tablet 20 mg PO QAM Qty: 90 2RF pantoprazole 40 mg tablet,delayed release (DR/EC) 40 mg PO BID Qty: 60 5RF levothyroxine 200 mcg tablet 200 mcg PO QAM Qty: 30 3RF (DME) pen needle, diabetic [BD Vy 2nd Gen Pen Needle] 32 gauge x 5/32" needle See Rx Instructions miscellaneous .MEDSUPPLY Qty: 100 3RF Rx Instructions: inject with a new pen needle daily lorazepam 0.5 mg tablet 0.5 mg PO DAILY PRN (Reason: Seizure Activity) levetiracetam 1,000 mg tablet 1,000 mg PO Q12H Qty: 60 6RF aspirin 81 mg tablet,delayed release (DR/EC) 81 mg PO QAM Qty: 90 3RF Norditropin FlexPro 5 mg/1.5 mL (3.3 mg/mL) pen injector 0.3 mg SQ QPM Qty: 2 5RF metoprolol succinate 25 mg tablet extended release 24 hr 25 mg PO HS Qty: 90 3RF desmopressin 0.2 mg tablet 0.4 mg PO BID Qty: 120 5RF lisinopril 40 mg tablet 40 mg PO DAILY Qty: 90 2RF divalproex 500 mg tablet,delayed release (DR/EC) 1,000 mg PO DAILY Qty: 60 6RF hydrocortisone 10 mg tablet 10 mg PO UD Qty: 135 1RF Rx Instructions: TAKE 20mg IN THE AM AND 10mg IN THE PM. MAY DOUBLE THE DOSE IN TIMES OF STRESS. lacosamide 150 mg tablet 150 mg PO BID Qty: 60 5RF (DME) FreeStyle Rosalie 2 [facility] [place] See Rx Instructions .Route Qty: 1 0RF Rx Instructions: Check blood glucose before each meal (DME) OneTouch Verio test strips Strip See Rx Instructions .Route Rx Instructions: Test blood sugar two times daily mirtazapine [Remeron] 30 mg tablet 30 mg PO HS Rx Instructions: Take 30mg w/ 15mg tablet to equal 45mg at bedtime. Nurtec ODT 75 mg tablet,disintegrating 75 mg PO DAILY PRN (Reason: Migraine Headache) Qty: 8 6RF albuterol sulfate [Ventolin HFA] 90 mcg/actuation HFA aerosol inhaler 2 inh inhalation Q6H PRN (Reason: shortness of breath or wheezing) Qty: 6.7 2RF budesonide 0.5 mg/2 mL suspension for nebulization 0.5 mg inhalation DAILY Qty: 60 5RF (DME) nebulizers [Compact Compressor Nebulizer] [facility] [place] See Rx Instructions .Route Qty: 1 0RF Rx Instructions: One compact compressor nebulizer. Use as directed. Please include tubing, mouth piece and cup. ipratropium-albuterol 0.5 mg-3 mg(2.5 mg base)/3 mL solution for nebulization 3 ml inhalation QID PRN (Reason: wheezing) Qty: 90 0RF trazodone 100 mg tablet 100 mg PO HS ferrous sulfate 325 mg (65 mg iron) tablet 325 mg PO .qod famotidine [Acid [employer] (famotidine)] 20 mg tablet 20 mg PO DAILY 42 Days Qty: 42 3RF insulin glargine [Lantus Solostar U-100 Insulin] 100 unit/mL (3 mL) insulin pen 12 unit SUBCUT HS Hold Instructions: Has been on hold for a few weeks per pt Patient Comments: PER PT HE IS TAKING 12 UNITS -CONFIRMED ON 07/19/24 Mounjaro 2.5 mg/0.5 mL pen injector 2.5 mg subcut Q7D Qty: 2 3RF duloxetine 60 mg capsule,delayed release(DR/EC) 60 mg PO BID Rx Instructions: Pt states that he takes 60mg in the morning and 30mg in the evening. Original Directions: 60mg by mouth twice daily dutasteride 0.5 mg capsule 0.5 mg PO QAM Rx Instructions: TAKE 1 CAPSULE BY MOUTH DAILY IN THE MORNING Baqsimi 3 mg/actuation spray,non-aerosol 3 mg intranasal ONCE PRN (Reason: Severe Hypoglycemia) Rx Instructions: for treatment of severe hypoglycemia, second dose may be given if patient does not respond after 15 minutes . Per caregiver, pt has never has to use this medication. bumetanide 1 mg Tablet 1 mg PO QAM Qty: 30 0RF vitamin B complex [Vitamins B Complex] Capsule 1 cap PO QAM Qty: 30 0RF prazosin 5 mg capsule 5 mg PO HS hydrocodone-acetaminophen 7.5-325 mg tablet 1 tab PO Q6H propranolol 120 mg capsule,extended release 24hr 120 mg PO HS oxybutynin chloride 5 mg tablet extended release 24hr 5 mg PO DAILY Rx Instructions: TAKE 1 TABLET BY MOUTH DAILY arformoterol [Brovana] 15 mcg/2 mL solution for nebulization 2 ml inhalation BID aripiprazole 5 mg tablet 5 mg PO DAILY Discharge Orders: Discharge Order (Routine); Ordered 01/25/25 Ordered By: Davy Chin/Other Patient Handouts: Managing Type 2 Diabetes Admission Data Admit Date/Time: 01/16/25 11:23 Attending Provider: Davy Benoit Admit Provider: Gamaliel Henley Primary Care Provider: Larry Amaral. Other Providers: Gamaliel Henley; Hernandez Fischer; Gennaro Ordonez Hospital Stay Data Consultations 01/16/25 11:26 ED Decision to Admit Stat 01/23/25 17:24 Consult Neurology Routine Diagnostic Imagining Performed 01/18/25 19:43 CT head/brain wo con Stat 01/20/25 15:48 MRI Brain [MR brain wo/w con] Routine Pending Results Patient Have Any Pending Studies at Discharge: No Discharge Instructions Given to Patient (Per Discharging Provider) See your PCP Dr. Larry Amaral within 7 days of hospital discharge. See your Neurologist Dr. Gennaro Ordonez within 7 days of hospital discharge. Total Time Total Time Spent Total Time Spent (In Minutes): 35 Coding Level of Care Code 36261 INP/OBS DISCH >30 MIN Diagnoses Acute hypoxic respiratory failure J96.01 Influenza A J10.1 Seizure disorder G40.909
[2025-01-25 16:15] VITALS: BP 142/93; RESP 20; TEMP 97.7; O2SAT 96
== END 2025-01-25 16:45 | disposition home health service (06) | DRG 193 ==
LOC: ED 09:07 → SUATTDRO 11:23 → EDINP 11:23 → 2E 12:24
DX: E23.0 Hypopituitarism; K21.9 Gastro-esophageal reflux disease without esophagitis; E87.6 Hypokalemia; F17.220 Nicotine dependence, chewing tobacco, uncomplicated; Z79.02 Long term (current) use of antithrombotics/antiplatelets; N40.1 Benign prostatic hyperplasia with lower urinary tract symptoms; Z83.3 Family history of diabetes mellitus; Z91.041 Radiographic dye allergy status; Z68.38 Body mass index [BMI] 38.0-38.9, adult; E27.40 Unspecified adrenocortical insufficiency; F31.9 Bipolar disorder, unspecified; E66.2 Morbid (severe) obesity with alveolar hypoventilation; E03.9 Hypothyroidism, unspecified; Z99.81 Dependence on supplemental oxygen; J44.9 Chronic obstructive pulmonary disease, unspecified; E83.42 Hypomagnesemia; Z66 Do not resuscitate; M48.062 Spinal stenosis, lumbar region with neurogenic claudication; Z79.890 Hormone replacement therapy; G40.909 Epilepsy, unspecified, not intractable, without status epilepticus; R31.29 Other microscopic hematuria; I50.9 Heart failure, unspecified; E87.20 Acidosis, unspecified; J96.21 Acute and chronic respiratory failure with hypoxia; J69.0 Pneumonitis due to inhalation of food and vomit; E11.9 Type 2 diabetes mellitus without complications; N17.9 Acute kidney failure, unspecified; L03.115 Cellulitis of right lower limb; Z88.1 Allergy status to other antibiotic agents; Z79.85 Long-term (current) use of injectable non-insulin antidiabetic drugs; I11.0 Hypertensive heart disease with heart failure; Z79.84 Long term (current) use of oral hypoglycemic drugs; J10.08 Influenza due to other identified influenza virus with other specified pneumonia; I25.10 Atherosclerotic heart disease of native coronary artery without angina pectoris

== ENCOUNTER 2025-01-27 18:31 | Observation (INO) ==
--- NOTE | 2025-01-27 18:51 | Emergency Department Note ---
Impression & Plan Ambulatory dysfunction Admission ED Provider Note HPI: History obtained from patient. The patient is a 54-year-old gentleman with history of chronic respiratory failure, venous stasis ulcers, seizure disorder, COPD, hypertension, pituitary hypothyroidism, pituitary hypogonadism, bipolar disorder, presents emergency department chief complaint of shortness of breath and acute on chronic pain in his right foot. Patient was just discharged from the hospital 2 days ago for respiratory failure and influenza A. Patient states he felt like he was discharged too early as he has not been doing well at home. He is having trouble ambulating and feels short of breath with exertion. On arrival here to the ED the patient is hemodynamically stable and saturating well on room air, his states that she does not feel that he is safe at home and he is having difficulty getting up the stairs to get to their apartment. ROS: - Per HPI Differential Diagnosis: COPD exacerbation, acute CHF exacerbation, pneumonia, viral upper respiratory infection to include influenza A, physical deconditioning, acute on chronic respiratory failure, amongst other potential pathologies. *Outpatient medications and allergy history reviewed. PE: General: Alert HEENT: Normocephalic, trachea midline Eyes: Extraocular eye movement is intact, no scleral erythema Pulmonary: Clear to auscultation bilaterally, mild expiratory wheezing bilaterally Cardio: Regular rate and rhythm GI: Abdomen is soft to palpation : No suprapubic tenderness MSK: No evidence of trauma or malformation of the extremities, no edema, no malformation of the right foot, there is a palpable dorsalis pedis pulse in the right lower extremity Skin: No evidence of rash Neuro: Alert, no focal deficits Psychiatric: Cooperative INDEPENDENT INTERPRETATIONS: night monitor: (As interpreted by myself): - An order was placed for continuous cardiac monitoring - Patient was noted to be in sinus rhythm with a rate of 80 EKG: (As interpreted by myself): Rate: 86 Rhythm: Normal sinus rhythm Intervals: Within normal limits ST changes: No ST elevation Time: 1844 Chest x-ray: (As interpreted by myself): No focal infiltrate Interventions provided in ED: -DuoNeb breathing treatment, IV Solu-Medrol Medical Decision Making: IV was established and lab work obtained, patient was placed on clinical research monitor. Lab work shows a leukocytosis of 12.3, hemoglobin is stable at 12.8, platelet count is normal, venous blood gas shows a pH of 7.45 with a normal pCO2, CMP does not show any critical findings. Troponin is negative, BNP is within normal limits, chest x-ray shows resolving infiltrate from previous. Viral panel testing was obtained and is negative. On reassessment patient states he is still having some pain in his right foot, he still does have some wheezing and therefore was ordered DuoNeb breathing treatment and IV Solu-Medrol. Patient and his state that they are interested in admission for placement to inpatient rehab as the patient is having ambulatory dysfunction with significant dyspnea at home. Given this, I did discuss the patient's presentation with Dr. Ronquillo, the hospitalist, the patient was placed for admission in stable condition. I did add x-ray imaging of the right foot prior to admission given the patient's complaint of acute on chronic pain. Consultants/Discussions held with other healthcare providers: -Hospitalist, Dr. Ronquillo Disposition discussion held by myself with: -Patient and patient's Diagnosis: 1. COPD exacerbation, acute 2. Dyspnea on exertion, acute 3. Ambulatory dysfunction, acute Disposition: Admission Bryce Duran DO Emergency Medicine Past Med/Surg History Problem List (Updated 01/27/25 @ 22:13 by Bryce Duran DO) Ambulatory dysfunction (Acute) Diaphoresis (Acute) Acute hypoxic respiratory failure (Acute) Influenza A (Acute) Influenza A LPRD (laryngopharyngeal reflux disease) Arthralgia Anti-cyclic citrullinated peptide antibody positive Restrictive lung disease Fall (Acute) Hematoma (Acute) Venous stasis ulcers (Acute) Chronic venous insufficiency (Chronic) Seizure disorder (Acute) Presbyopia of both eyes Epiretinal membrane (ERM) of left eye Ocular hypertension Secondary cataract of left eye with vision obscured Combined form of senile cataract of right eye Abnormal PFTs (pulmonary function tests) Abnormal chest CT COPD (chronic obstructive pulmonary disease) Demyelinating disease Hypertension (Acute) Secondary adrenal insufficiency Pituitary hypogonadism Follows with endocrinology- Pituitary hypothyroidism Follows with endocrinology- Non-occlusive coronary artery disease Lumbar stenosis with neurogenic claudication Esophageal dysphagia Anxiety (Chronic) Mitral regurgitation Essential tremor Idiopathic polyneuropathy Arachnoid cyst of posterior cranial fossa Obstructive sleep apnea (Acute) Mixed hyperlipidemia Ulcerative colitis Anemia (Acute) Bipolar disorder (10/11/22) Chronic migraine without aura or status migrainosus Uncontrolled type 2 diabetes mellitus with hyperglycemia Suspect low glycation index meaning his A1c is typically about 2 points lower than what his average glucose would suggest. Current use of proton pump inhibitor Severe obesity (BMI 35.0-35.9 with comorbidity) 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 Growth hormone deficiency Depression BPH with obstruction/lower urinary tract symptoms Medical History Presence of Watchman left atrial appendage closure device Status epilepticus (09/13/24) Knee hemarthrosis, right (09/13/24) Acute on chronic anemia (09/13/24) Acute metabolic encephalopathy (09/13/24) Acute hypoxic respiratory failure (09/13/24) Laceration of toe of right foot Closed fracture of right fibula with malunion Type 2 diabetes mellitus Right fibular fracture Acute on chronic respiratory failure with hypoxia and hypercapnia Shortness of breath Acute hypercapnic respiratory failure Acute hypercapnic respiratory failure Chronic respiratory failure with hypoxia Obesity CKD (chronic kidney disease), stage III Peripheral edema Seizure disorder Atrial fibrillation (02/15/24) Chronic low back pain Panhypopituitarism Lumbosacral radiculopathy Toxic encephalopathy Chest pain Acute dyspnea Acute CHF Hypoglycemia Syncope and collapse Reason for loop recorder No recent issues since bed bound from femur fracture in Sep 2022 per patient Internal hemorrhoids Recurrent seizures Pituitary diabetes insipidus Follows with endocrinology- on DDAVP Spondylolysis, lumbar region Right lumbar radiculopathy HTN (hypertension) Bipolar disorder Adrenal insufficiency Pituitary adenoma Diabetes Bleeding (02/16/24) Acute blood loss anemia (02/19/24) Hyperactive gag reflex BRCA gene positive tested positive in Aug 2023 [place] > reason for up coming EGD Family history of BRCA gene mutation PTSD (post-traumatic stress disorder) Epidural lipomatosis Chronic left sacroiliac pain Benzodiazepine overdose none since Nov 2022 Presence of cardiac device Loop recorder > last checked fall 2022 Hx of fracture of foot Sep 2022- right > cast since removed > still gets painful Fracture of fibula, right, closed Cerebral concussion May 2023 during seizure > no further issues Orthostatic hypotension Pseudoseizures Sensorineural hearing loss of both ears Rectal bleeding on occasion History of COVID-19 10/2021 - fatigue; resolved. Mitral valve regurgitation follows with Dr. Phillips Vertigo Panhypopituitarism Lower extremity edema Elevated LFTs Bilateral hand pain Pituitary neoplasm Dx'ed in 2001- s/p surgical resection and XRT Repeat surgery in 2018 secondary to tumor regrowth at [facility] Kidney stones HX Prostate mass benign Bladder mass benign Obstructive sleep apnea of adult cpap > non compliant per pt Surgical History S/P TURP (status post transurethral resection of prostate) History of lumbar fusion [facility] [place] Jul 2022 History of cardiac cath 07/2021 - no stents S/P epidural steroid injection History of lithotripsy Status post right foot surgery replaced 5th metatarsal--hardware in place History of bladder surgery remove mass History of prostate surgery remove mass History of colonoscopy History of esophagogastroduodenoscopy (EGD) History of tooth extraction History of wisdom tooth extraction History of brain [place] x2[place] [facility] [place] [facility]--for brain tumors > caused epilepsy Family History Grandmother (Paternal) Family history of diabetes mellitus Aunt Family history of diabetes mellitus Uncle Family history of diabetes mellitus Father Prostate cancer Heart disease Osteoarthritis Mother Cardiac disorder Grandmother (Maternal) Myocardial infarction Other Asthma Cancer Hypertension No family history of adverse response to anesthesia No family history of bleeding disorder Stroke Denies family history of Ovarian cancer Breast cancer Colorectal cancer Social History Smoking Status: Never smoker Tobacco Type: Smokeless Tobacco (Dip or Chew) Second Hand Exposure: No; Do You Dip or Chew Tobacco: No; Hx Alcohol Use: No Hx Substance Use: No Preferred Language: Arabic Communication Ability: Impaired Communication Ability Comment: Unable to obtain due to patient condition. Visual Impairment: Limited Hearing Ability: Normal Chair Finisher Required: No Beliefs That Will Affect Care: None marital status: Single Current Living Situation: Family Current Living Situation Comment: and daughter current occupational status: disabled How many Children do You have: 3 How many Children do You have Comment: able to assist with care if needed Feels Safe at Home: Yes Childhood Exposure to Second-Hand Smoke: Yes (parents smoked) Diet: regular Diet Comment: going to be starting low carb/low calorie diet. caffeine: No (1/2 20 oz bottle of mountain dew. ) during the past year weight has: increased > 10 lbs Physical Activity Frequency: Daily Physical Activity Frequency Comment: walking, 1.5 miles daily. Seatbelt Use: always Do you think of yourself as: straight/heterosexual Gender Identity: Male Assistive Devices: Cane, Oxygen - Continuous and Walker Allergies Allergies Allergy/AdvReac Type Severity Reaction Status Date / Time clindamycin Allergy Intermediate SWELLING Verified 12/18/24 11:27 Iodinated Contrast Media Allergy Intermediate face/eye Verified 12/18/24 11:27 swelling Quinolones Allergy Intermediate HIVES Verified 12/18/24 11:27 tomato AdvReac Verified 01/24/25 12:14 Home Meds Home Medications Medication Instructions Recorded Confirmed lithium carbonate 300 mg tablet 300 mg PO AMHS 06/04/22 01/27/25 mirtazapine 30 mg tablet (Remeron) 30 mg PO HS 06/23/22 01/27/25 blood sugar diagnostic (OneTouch 08/06/22 12/18/24 Verio test strips) dutasteride 0.5 mg capsule 0.5 mg PO QAM 04/06/24 01/27/25 glucagon 3 mg/actuation nasal 3 mg intranasal ONCE PRN Severe 04/06/24 01/27/25 spray (Baqsimi) Hypoglycemia aripiprazole 5 mg tablet 5 mg PO DAILY 05/29/24 01/27/25 insulin glargine 100 unit/mL (3 12 unit subcut HS 07/19/24 01/27/25 mL) subcutaneous pen (Lantus Solostar U-100 Insulin) trazodone 100 mg tablet 100 mg PO HS 10/03/24 01/27/25 hydrocodone 7.5 mg-acetaminophen 1 tab PO Q6H 11/19/24 01/27/25 325 mg tablet prazosin 5 mg capsule 5 mg PO HS 11/19/24 01/27/25 propranolol 120 mg capsule,24 120 mg PO HS 11/19/24 01/27/25 hr,extended release lorazepam 0.5 mg tablet 0.5 mg PO DAILY PRN Seizure 11/23/24 01/27/25 Activity duloxetine 60 mg capsule,delayed 60 mg PO BID 11/27/24 01/27/25 release ferrous sulfate 325 mg (65 mg 325 mg PO .qod 11/27/24 01/27/25 iron) tablet clopidogrel 75 mg tablet (Plavix) 75 mg PO DAILY 12/03/24 01/27/25 arformoterol 15 mcg/2 mL solution 2 ml inhalation BID 01/16/25 01/27/25 for nebulization (Brovana) oxybutynin chloride 5 mg 5 mg PO DAILY 01/16/25 01/27/25 tablet,extended release 24 hr Previous Rx's Medication Instructions Recorded fluticasone propionate 50 1 spray intranasal HS PRN allergy 03/16/23 mcg/actuation nasal symptoms #16 grams spray,suspension (Flonase Allergy Relief) FreeStyle Rosalie 2 [place] (flash #1 ea 05/13/23 glucose scanning reader) rimegepant 75 mg disintegrating 75 mg PO DAILY PRN Migraine 09/14/23 tablet (Nurtec ODT) Headache #8 tabs blood sugar diagnostic (OneTouch #150 ea 11/22/23 Verio test strips) blood-glucose meter (OneTouch #1 ea 11/22/23 Verio Reflect Meter) insulin syringe-needle U-100 1 mL #300 ea 11/22/23 30 gauge x 1/2" (BD Insulin Syringe Ultra-Fine) lancets 33 gauge (OneTouch Delica #150 ea 11/22/23 Plus Lancet) albuterol sulfate 90 mcg/actuation 2 inh inhalation Q6H PRN shortness 02/24/24 aerosol inhaler (Ventolin HFA) of breath or wheezing #6.7 grams metformin 1,000 mg tablet 1,000 mg PO BID #180 tabs 03/03/24 FreeStyle Rosalie 2 Sensor (flash #6 ea 05/02/24 glucose sensor) testosterone 2 pump topical PM #75 grams 05/04/24 nystatin 100,000 unit/gram topical 1 applic topical BID #30 grams 06/19/24 cream ipratropium 0.5 mg-albuterol 3 mg 3 ml inhalation QID PRN wheezing 07/31/24 (2.5 mg base)/3 mL nebulization #90 mL soln nebulizers (Compact Compressor #1 ea 07/31/24 Nebulizer) Botox 200 unit injection See Rx Instructions IM .COMPLEX #1 09/18/24 (onabotulinumtoxinA) ea cholecalciferol (vitamin D3) 50 50 mcg PO QPM #90 caps 09/19/24 mcg (2,000 unit) capsule rosuvastatin 20 mg tablet 20 mg PO QAM #90 tabs 09/19/24 pantoprazole 40 mg tablet,delayed 40 mg PO BID #60 tabs 09/21/24 release levothyroxine 200 mcg tablet 200 mcg PO QAM #30 tabs 10/22/24 pen needle, diabetic 32 gauge x #100 ea 10/23/24 5/32" (BD Vy 2nd Gen Pen Needle) bumetanide 1 mg tablet 1 mg PO QAM #30 tabs 10/26/24 vitamin B complex (Vitamins B 1 cap PO QAM #30 caps 10/26/24 Complex capsule) tirzepatide 2.5 mg/0.5 mL 2.5 mg (0.5 mL) subcut Q7D #2 mL 11/22/24 subcutaneous pen injector (Unruly) levetiracetam 1,000 mg tablet 1,000 mg PO Q12H #60 tabs 11/26/24 aspirin 81 mg tablet,delayed 81 mg PO QAM #90 tabs 11/27/24 release desmopressin 0.2 mg tablet 0.4 mg (2 x 0.2 mg) PO BID #120 11/30/24 tabs metoprolol succinate 25 mg 25 mg PO HS #90 tabs 11/30/24 tablet,extended release 24 hr somatropin 5 mg/1.5 mL (3.3 mg/mL) 0.3 mg (0.09 mL) subcut QPM #2 11/30/24 subcutaneous pen injector syringes (Norditropin FlexPro) budesonide 0.5 mg/2 mL suspension 0.5 mg (2 mL) inhalation DAILY #60 12/04/24 for nebulization mL lisinopril 40 mg tablet 40 mg PO DAILY #90 tabs 12/06/24 divalproex 500 mg tablet,delayed 1,000 mg (2 x 500 mg) PO DAILY #60 12/14/24 release tabs lacosamide 150 mg tablet 150 mg PO BID #60 tabs 12/26/24 famotidine 20 mg tablet (Acid 20 mg PO DAILY 6 weeks #42 tabs 01/11/25 Accountant Manager (famotidine)) hydrocortisone 10 mg tablet 10 mg PO UD #135 tabs 01/25/25 Results & Data (ED) Vital Signs Vital Signs - 24 hr 01/27/25 18:33 01/27/25 18:39 01/27/25 18:39 Temperature 36.7 C Temperature Source Temporal Artery Scan Pulse Rate 88 Pulse Rate [Apical] Pulse Rhythm Respiratory Rate 18 Respiratory Effort / Characteristics Non-Labored Spontaneous Non-Labored Spontaneous Respiratory Depth Normal Normal Respiratory Pattern Regular Blood Pressure 129/73 Blood Pressure [Left Arm] Blood Pressure Mean 91 Blood Pressure Mean [Left Arm] Blood Pressure Position Sitting Blood Pressure Position [Left Arm] Pulse Oximetry 97 Oxygen Delivery Method Room Air Room Air Room Air Sepsis Recent Fever Within 48 Hours No Sepsis New/Unexplained Change in Mental Status N/A Sepsis Action Taken by Nursing No Action Required Pulse Oximetry Post Tiitration 97 01/27/25 18:48 01/27/25 18:57 01/27/25 21:00 Temperature Temperature Source Pulse Rate 85 86 Pulse Rate [Apical] 83 Pulse Rhythm Regular Respiratory Rate 18 18 Respiratory Effort / Characteristics Non-Labored Spontaneous Respiratory Depth Normal Respiratory Pattern Regular Blood Pressure Blood Pressure [Left Arm] 155/84 H Blood Pressure Mean Blood Pressure Mean [Left Arm] 107 Blood Pressure Position Blood Pressure Position [Left Arm] Lying Pulse Oximetry 96 97 Oxygen Delivery Method Room Air Room Air Sepsis Recent Fever Within 48 Hours Sepsis New/Unexplained Change in Mental Status Sepsis Action Taken by Nursing Pulse Oximetry Post Tiitration Laboratory Data 01/27/25 19:09 01/27/25 19:09 Lab Results 01/27/25 01/27/25 Range/Units 19:09 19:17 WBC 12.30 H (4.8-10.8) K/ul RBC 4.39 L (4.70-6.10) M/uL Hgb 12.8 L (14.0-18.0) g/dl Hct 39.3 L (42.0-52.0) % MCV 89.5 (80.0-100.0) fL MCH 29.2 (25.0-34.0) pg MCHC 32.6 (32.0-36.0) g/dL RDW Std Deviation 46.7 H (36.4-46.3) fL RDW Coeff of Yanira 14.5 (11.5-14.5) % Plt Count 186 (130-400) K/uL MPV 8.6 L (9.4-12.4) fL Immature Gran % (Auto) 2.2 % Neut % (Auto) 70.5 % Lymph % (Auto) 20.7 % Ocean % (Auto) 5.5 % Eos % (Auto) 0.6 % Baso % (Auto) 0.5 % Neut # (Auto) 8.68 H (1.40-6.50) K/uL Lymph # (Auto) 2.54 (1.20-3.40) K/uL Ocean # (Auto) 0.68 H (0.11-0.59) K/uL Eos # (Auto) 0.07 (0.00-0.50) K/uL Baso # (Auto) 0.06 (0.00-0.20) K/uL Immature Gran # (Auto) 0.27 H (0.01-0.20) K/uL PT 10.8 (9.0-12.0) Seconds INR 1.0 (0.9-1.1) VBG pH 7.45 H (7.36-7.41) VBG pCO2 38 (38-50) mmHg VBG pO2 73 mmHg VBG HCO3 26 mmol/L VBG O2 Saturation 96.6 % VBG Base Excess 2.4 mEq/L Sodium 143 (136-145) mmol/L Potassium 3.8 (3.5-5.1) mmol/L Chloride 106 (98-107) mmol/L Carbon Dioxide 27 (21-32) mmol/L Anion Gap 10 (3-11) BUN 11 (6-23) mg/dl Creatinine 1.08 (0.6-1.4) mg/dl Est Cr Clr Drug Dosing Not Reportable eGFR 80.54 BUN/Creatinine Ratio 10.2 (10-20) Glucose 155 H (70-99(Fasting)) mg/dl Calcium 9.9 (8.6-10.3) mg/dl Total Bilirubin 0.4 (0.2-1.0) mg/dl AST 15 (13-39) U/L ALT 31 (7-52) U/L Alkaline Phosphatase 45 (34-104) U/L Troponin I High Sens 3.7 (0-20) pg/ml B-Natriuretic Peptide 50 (0-100) pg/ml Total Protein 6.5 (6.0-8.3) gm/dl Albumin 4.3 (3.4-5.0) gm/dl Globulin 2.2 L (2.5-4.0) gm/dl Albumin/Globulin Ratio 2.0 (0.9-2) Adenovirus (PCR) Not Detected (NotDetected) B. pertussis DNA (PCR) Not Detected (NotDetected) B.parapertussis DNA PCR Not Detected (NotDetected) C. pneumoniae DNA (PCR) Not Detected (NotDetected) Coronavirus OC43 (PCR) Not Detected (NotDetected) Coronavirus HKU1 (PCR) Not Detected (NotDetected) Coronavirus 229E (PCR) Not Detected (NotDetected) SARS-CoV-2 (PCR) Not Detected (NotDetected) Coronavirus NL63 (PCR) Not Detected (NotDetected) Human Metapneumovir PCR Not Detected (NotDetected) Influenza Type A (PCR) Not Detected (NotDetected) Influenza Type B (PCR) Not Detected (NotDetected) M. pneumoniae (PCR) Not Detected (NotDetected) Parainfluenza 1 (PCR) Not Detected (NotDetected) Parainfluenza 2 (PCR) Not Detected (NotDetected) Parainfluenza 3 (PCR) Not Detected (NotDetected) Parainfluenza 4 (PCR) Not Detected (NotDetected) RSV (PCR) Not Detected (NotDetected) Entero/Rhino (PCR) Not Detected (NotDetected) Administered Medications Discontinued Medications Albuterol (Albut/Ipratrop 3mg/0.5mg Neb 3 Ml Vial) 3 ml NEB NOW STA; Protocol Stop: 01/27/25 20:36 Last Admin: 01/27/25 20:53 Dose: 3 ml Documented By: Methylprednisolone (Methylprednisolone 125 Mg/2 Ml Vial) 80 mg IV NOW STA Stop: 01/27/25 20:36 Last Admin: 01/27/25 20:53 Dose: 80 mg Documented By: Imaging Data Radiologist's Impression: Chest X-Ray 01/27/25 18:48 EXAM: Radiograph of the Chest 1 View INDICATION: Dyspnea TECHNIQUE: Frontal view of the chest. COMPARISON: 01/17/2025 FINDINGS: Lungs and pleural spaces: Persistent but improved airway thickening and resolved right perihilar infiltrate. No pleural effusion or pneumothorax. Heart: Stable enlarged shadow and loop recorder. Mediastinum: Normal contour. Bones/joints: No fracture, erosion or dislocation. Soft tissues: No abnormality noted. No radiopaque foreign body noted. Upper abdomen: No abnormality noted. IMPRESSION: Persistent but improved airway thickening and resolved right perihilar infiltrate. ACT 112: N/A Electronically signed by Dennise Asher 01-27-2025 7:28 PM Discharge Plan Visit Data Chief Complaint: Shortness of Breath/Dyspnea Stated Complaint: SHAKY, CAN'T WALK OR BREATHE ED Provider: Bryce Duran Discharge Problem: Ambulatory dysfunction Forms Stand Alone Forms: [facility] Prescriptions Prescriptions: No Action clopidogrel [Plavix] 75 mg tablet 75 mg PO DAILY lithium carbonate 300 mg tablet 300 mg PO AMHS fluticasone propionate [Flonase Allergy Relief] 50 mcg/actuation spray,suspension 1 spray intranasal HS PRN (Reason: allergy symptoms) Qty: 16 0RF Rx Instructions: administer into each nostril (DME) insulin syringe-needle U-100 [BD Insulin Syringe Ultra-Fine] 1 mL 30 gauge x 1/2" syringe See Rx Instructions .Route Qty: 300 1RF Rx Instructions: use tid (DME) OneTouch Verio test strips Strip See Rx Instructions .MEDSUPPLY Qty: 150 5RF Rx Instructions: check blood sugars 4 times a day (DME) blood-glucose meter [OneTouch Verio Reflect Meter] Misc See Rx Instructions miscellaneous .MEDSUPPLY Qty: 1 0RF Rx Instructions: [place] [place] lancets [OneTouch Delica Plus Lancet] 33 gauge misc See Rx Instructions .MEDSUPPLY Qty: 150 5RF Rx Instructions: As directed check blood sugars 4 times a day metformin 1,000 mg tablet 1,000 mg PO BID Qty: 180 3RF Hold Instructions: Per Dr Voss to hold as of 11/23/22 [place] FreeStyle Rosalie 2 Sensor Kit See Rx Instructions .Route Qty: 6 3RF Rx Instructions: Change every 14 days testosterone 20.25 mg/1.25 gram (1.62 %) gel in metered-dose pump 2 pump TOP PM Qty: 75 5RF Rx Instructions: apply 1 pump amount over max area of EACH upper arm and shoulder PDMP Queried ok to fill 03/17/2023 DS nystatin 100,000 unit/gram cream 1 applic topical BID Qty: 30 0RF Botox 200 unit recon soln See Rx Instructions IM .COMPLEX Qty: 1 3RF Rx Instructions: 155 UNITS IM IN THE FACE AND NECK MUSCLES EVERY 12 WEEKS PER MIGRAINE PROTOCOL cholecalciferol (vitamin D3) 50 mcg (2,000 unit) capsule 50 mcg PO QPM Qty: 90 1RF rosuvastatin 20 mg tablet 20 mg PO QAM Qty: 90 2RF pantoprazole 40 mg tablet,delayed release (DR/EC) 40 mg PO BID Qty: 60 5RF levothyroxine 200 mcg tablet 200 mcg PO QAM Qty: 30 3RF (DME) pen needle, diabetic [BD Vy 2nd Gen Pen Needle] 32 gauge x 5/32" needle See Rx Instructions miscellaneous .MEDSUPPLY Qty: 100 3RF Rx Instructions: inject with a new pen needle daily lorazepam 0.5 mg tablet 0.5 mg PO DAILY PRN (Reason: Seizure Activity) levetiracetam 1,000 mg tablet 1,000 mg PO Q12H Qty: 60 6RF aspirin 81 mg tablet,delayed release (DR/EC) 81 mg PO QAM Qty: 90 3RF Norditropin FlexPro 5 mg/1.5 mL (3.3 mg/mL) pen injector 0.3 mg SQ QPM Qty: 2 5RF metoprolol succinate 25 mg tablet extended release 24 hr 25 mg PO HS Qty: 90 3RF desmopressin 0.2 mg tablet 0.4 mg PO BID Qty: 120 5RF lisinopril 40 mg tablet 40 mg PO DAILY Qty: 90 2RF divalproex 500 mg tablet,delayed release (DR/EC) 1,000 mg PO DAILY Qty: 60 6RF lacosamide 150 mg tablet 150 mg PO BID Qty: 60 5RF hydrocortisone 10 mg tablet 10 mg PO UD Qty: 135 1RF Rx Instructions: TAKE 20mg IN THE AM AND 10mg IN THE PM. MAY DOUBLE THE DOSE IN TIMES OF STRESS. (DME) FreeStyle Rosalie 2 [place] Misc See Rx Instructions .Route Qty: 1 0RF Rx Instructions: Check blood glucose before each meal (DME) OneTouch Verio test strips Strip See Rx Instructions .Route Rx Instructions: Test blood sugar two times daily mirtazapine [Remeron] 30 mg tablet 30 mg PO HS Rx Instructions: Take 30mg w/ 15mg tablet to equal 45mg at bedtime. Nurtec ODT 75 mg tablet,disintegrating 75 mg PO DAILY PRN (Reason: Migraine Headache) Qty: 8 6RF albuterol sulfate [Ventolin HFA] 90 mcg/actuation HFA aerosol inhaler 2 inh inhalation Q6H PRN (Reason: shortness of breath or wheezing) Qty: 6.7 2RF budesonide 0.5 mg/2 mL suspension for nebulization 0.5 mg inhalation DAILY Qty: 60 5RF (DME) nebulizers [Compact Compressor Nebulizer] Misc See Rx Instructions .Route Qty: 1 0RF Rx Instructions: One compact compressor nebulizer. Use as directed. Please include tubing, mouth piece and cup. ipratropium-albuterol 0.5 mg-3 mg(2.5 mg base)/3 mL solution for nebulization 3 ml inhalation QID PRN (Reason: wheezing) Qty: 90 0RF trazodone 100 mg tablet 100 mg PO HS ferrous sulfate 325 mg (65 mg iron) tablet 325 mg PO .qod famotidine [Acid Accountant Manager (famotidine)] 20 mg tablet 20 mg PO DAILY 42 Days Qty: 42 3RF insulin glargine [Lantus Solostar U-100 Insulin] 100 unit/mL (3 mL) insulin pen 12 unit SUBCUT HS Hold Instructions: Has been on hold for a few weeks per pt Patient Comments: PER PT HE IS TAKING 12 UNITS -CONFIRMED ON 07/19/24 Mounjaro 2.5 mg/0.5 mL pen injector 2.5 mg subcut Q7D Qty: 2 3RF duloxetine 60 mg capsule,delayed release(DR/EC) 60 mg PO BID Rx Instructions: Pt states that he takes 60mg in the morning and 30mg in the evening. Original Directions: 60mg by mouth twice daily dutasteride 0.5 mg capsule 0.5 mg PO QAM Rx Instructions: TAKE 1 CAPSULE BY MOUTH DAILY IN THE MORNING Baqsimi 3 mg/actuation spray,non-aerosol 3 mg intranasal ONCE PRN (Reason: Severe Hypoglycemia) Rx Instructions: for treatment of severe hypoglycemia, second dose may be given if patient does not respond after 15 minutes . Per caregiver, pt has never has to use this medication. bumetanide 1 mg Tablet 1 mg PO QAM Qty: 30 0RF vitamin B complex [Vitamins B Complex] Capsule 1 cap PO QAM Qty: 30 0RF prazosin 5 mg capsule 5 mg PO HS hydrocodone-acetaminophen 7.5-325 mg tablet 1 tab PO Q6H propranolol 120 mg capsule,extended release 24hr 120 mg PO HS oxybutynin chloride 5 mg tablet extended release 24hr 5 mg PO DAILY Rx Instructions: TAKE 1 TABLET BY MOUTH DAILY arformoterol [Brovana] 15 mcg/2 mL solution for nebulization 2 ml inhalation BID aripiprazole 5 mg tablet 5 mg PO DAILY Referrals Referrals: ProLarry MD [Primary Care Provider] -
--- NOTE | 2025-01-27 19:28 | XRay Report ---
EXAM: Radiograph of the Chest 1 View INDICATION: Dyspnea TECHNIQUE: Frontal view of the chest. COMPARISON: 01/17/2025 FINDINGS: Lungs and pleural spaces: Persistent but improved airway thickening and resolved right perihilar infiltrate. No pleural effusion or pneumothorax. Heart: Stable enlarged shadow and loop recorder. Mediastinum: Normal contour. Bones/joints: No fracture, erosion or dislocation. Soft tissues: No abnormality noted. No radiopaque foreign body noted. Upper abdomen: No abnormality noted. IMPRESSION: Persistent but improved airway thickening and resolved right perihilar infiltrate. ACT 112: N/A Electronically signed by Dennise Asher 01-27-2025 7:28 PM
[2025-01-27 19:30] LABS: Basophils # (auto) 0.06 K/uL (0.00-0.20); Basophils % (auto) 0.5 %; Eosinophils # (auto) 0.07 K/uL (0.00-0.50); Eosinophils % (auto) 0.6 %; Hematocrit (blood only) 39.3 % (42.0-52.0); Hemoglobin 12.8 g/dl (14.0-18.0); Immature Granulocytes # (auto) 0.27 K/uL (0.01-0.20); Immature Granulocytes % (auto) 2.2 %; Lymphocytes # (auto) 2.54 K/uL (1.20-3.40); Lymphocytes % (auto) 20.7 %; Mean Corpuscular Hemoglobin 29.2 pg (25.0-34.0); Mean Corpuscular Hgb Conc 32.6 g/dL (32.0-36.0); Mean Corpuscular Volume 89.5 fL (80.0-100.0); Mean Platelet Volume 8.6 fL (9.4-12.4); Monocytes # (auto) 0.68 K/uL (0.11-0.59); Monocytes % (auto) 5.5 %; Neutrophils # (auto) 8.68 K/uL (1.40-6.50); Neutrophils % (auto) 70.5 %; Platelet Count 186 K/uL (130-400); RDW Coefficient of Variation 14.5 % (11.5-14.5); RDW Standard Deviation 46.7 fL (36.4-46.3); Red Blood Count 4.39 M/uL (4.70-6.10)
[2025-01-27 19:36] LABS: Base Excess VBG 2.4 mEq/L; HCO3 VBG 26 mmol/L; Oxygen Saturation VBG 96.6 %; PCO2 VBG 38 mmHg (38-50); PO2 VBG 73 mmHg; pH VBG 7.45 (7.36-7.41)
[2025-01-27 19:45] LABS: Alanine Aminotransferase 31 U/L (7-52); Albumin Level 4.3 gm/dl (3.4-5.0); Alkaline Phosphatase 45 U/L (34-104); Anion Gap 10 (3-11); Aspartate Aminotransferase 15 U/L (13-39); BUN Creatinine Ratio 10.2 (10-20); Bilirubin,Total 0.4 mg/dl (0.2-1.0); Blood Urea Nitrogen 11 mg/dl (6-23); Calcium 9.9 mg/dl (8.6-10.3); Carbon Dioxide 27 mmol/L (21-32); Chloride 106 mmol/L (98-107); Globulin 2.2 gm/dl (2.5-4.0); Glucose 155 mg/dl (70-99(Fasting)); Potassium 3.8 mmol/L (3.5-5.1); Sodium 143 mmol/L (136-145); Total Protein 6.5 gm/dl (6.0-8.3)
[2025-01-27 19:52] LABS: Troponin I High Sensitivity 3.7 pg/ml (0-20)
[2025-01-27 19:54] LABS: Prothrombin Time 10.8 Seconds (9.0-12.0)
[2025-01-27 20:26] LABS: Adenovirus PCR Not Detected (NotDetected); Bordetella parapertussis PCR Not Detected (NotDetected); Bordetella pertussis PCR Not Detected (NotDetected); Chlamydia pneumoniae PCR Not Detected (NotDetected); Coronavirus 229E PCR Not Detected (NotDetected); Coronavirus CoV-2 (COVID19)PCR Not Detected (NotDetected); Coronavirus HKU1 PCR Not Detected (NotDetected); Coronavirus NL63 PCR Not Detected (NotDetected); Coronavirus OC43PCR Not Detected (NotDetected); Human Metapneumovirus PCR Not Detected (NotDetected); Influenza B PCR Not Detected (NotDetected); Mycoplasma pneumoniae PCR Not Detected (NotDetected); Parainfluenza Virus 1 PCR Not Detected (NotDetected); Parainfluenza Virus 2 PCR Not Detected (NotDetected); Parainfluenza Virus 3 PCR Not Detected (NotDetected); Parainfluenza Virus 4 PCR Not Detected (NotDetected); Respiratory Syncytial VirusPCR Not Detected (NotDetected); Rhinovirus/Enterovirus PCR Not Detected (NotDetected)
[2025-01-27] MEDS: methylPREDNISolone 125 MG/2 ML VIAL IV STA (20:53)
[2025-01-27] MEDS: ALBUT/IPRATROP 3MG/0.5MG NEB 3 ML VIAL NEB STA (20:53)
[2025-01-27 21:29] LABS: Influenza A PCR Not Detected (NotDetected)
--- NOTE | 2025-01-27 21:35 | History & Physical Report ---
Date of Service January 27, 2025 Assessment & Plan (1) Dyspnea: (2) Ambulatory dysfunction: (3) Seizure disorder: Plan 54-year-old male PMHx seizure disorder, CORINA, panhypopituitary, GERD, bipolar disorder, T2DM, restrictive lung disease, and A-fib presenting after recent admission from 01/16/2025 until 01/25/2025 (acute hypoxic respiratory failure, influenza) who presents for increased SOB and R foot pain worsening since discharge. ED evaluation with leukocytosis 12.3, H&H 12.8/29.3, PT/INR WNL, pH 7.45, CMP grossly WNL with exception of globulin 2.2 and glucose 155; BioFire negative; persistent but improved airway thickening and resolved right perihilar infiltrate; foot x-ray pending. Provided with methylprednisolone and albuterol nebulizer in ED. #Dyspnea/Hx of restrictive lung disease Worsening SOB present since hospital discharge per patient, with discharge being 01/25/2025 after a 10-day stay for acute hypoxic respiratory failure from influenza/?PNA. Overall hemodynamically stable on admission and not hypoxic. Does follow with pulm. - CBC leukocytosis 12.3, H/H 12.8/39.3, VBGs pH 7.45, PT/INR WNL, CMP grossly WNL; BioFire negative; CXR with improving findings as compared to prior imaging - CBC am - Albuterol nebs prn - Solu-Medrol 40mg qAM - O2 prn (3L baseline); IC #Ambulatory dysfunction Some generalized decline and overall states that he is just not feeling back to normal yet. - PT/OT ordered, appreciate assistance #Seizure disorder States last seizure the night PLASTIC MAKER, grand mal and lasting < 60 seconds per patient ( reports). Seizure vs pseudoseizure noted by neurology consultation. - Seizure precautions - 01/17 EEG no focal abnormalities, potentially epileptogenic discharges, or abnormal slow activity; MRI brain negative for acute findings at that time - Prior risk resp depression so benzos were NOT ordered during last admission #T2DM H/o DMT2 metformin, glargine 12U, mounjaro - Most recent A1C 12/2024 @ 6% - SSI with target BSG range 110-140mg/dL, CF 40, carb ratio 15; Lantus 4 BID - BSG ACHS - Pharm glycemic management consult placed, appreciate assistance- Adjust regimen as needed #CORINA- Follows with pulmonology, CPAP nightly #Panhypopituitary- Follows with endo; Consider stress steroids if pt becomes hem odynamically unstable #GERD- Famotidine, pantoprazole #Psych/Bipolar- Aripiprazole, lithium, lorazepam, mirtazapine, propranolol, prazosin, trazodone #HTN- Lisinopril #HLD- Rosuvastatin #Afib- Watchman device; plavix + ASA, metoprolol Dispo: Admit, PCU VTE Prophylaxis: Lovenox This document was dictated utilizing playnik. Please excuse any grammatical errors that may be secondary to use of this software. Admission and Anticipated Discharge Date Admission Date: 01/27/2025 History of Present Illness Chief Complaint: SOB Primary Care Provider: Larry Amaral MD 54-year-old male PMHx seizure disorder, CORINA, panhypopituitary, GERD, bipolar disorder, T2DM, restrictive lung disease, and A-fib presenting after recent admission from 01/16/2025 until 01/25/2025 (acute hypoxic respiratory failure, influenza) who presents for increased SOB and R foot pain worsening since discharge. Patient states that once arriving home after discharge from [place], he started to feel as though he was having SOB. Over the course of 48 hours elapsed, patient states he is having worsening SOB and having a nonproductive cough. Reports fever of 101 F (Tmax) the day prior to arrival as well as some abdominal pain in his central abdomen. States the abdominal pain is an aching type pain and that he has had increased amount of bowel movements per day, with last BM the day PLASTIC MAKER which was 1 of 5 episodes and was described as loose in nature. Denying N/V. Patient reports most recent seizure the night PLASTIC MAKER lasting approximately 60 seconds and then resolution. Denying chest pain, palpitations, nausea/vomiting, LUTS, new numbness/tingling, or additional URI symptoms. ED evaluation with leukocytosis 12.3, H&H 12.8/29.3, PT/INR WNL, pH 7.45, CMP grossly WNL with exception of globulin 2.2 and glucose 155; BioFire negative; persistent but improved airway thickening and resolved right perihilar infiltrate; foot x-ray pending. Provided with methylprednisolone and albuterol nebulizer in ED. Please see Dr. Ronquillo's attestation for adjustments/additions to treatment plan. Allergies Allergy/AdvReac Type Severity Reaction Status Date / Time clindamycin Allergy Intermediate SWELLING Verified 12/18/24 11:27 Iodinated Contrast Media Allergy Intermediate face/eye Verified 12/18/24 11:27 swelling Quinolones Allergy Intermediate HIVES Verified 12/18/24 11:27 tomato AdvReac Verified 01/24/25 12:14 Home Medications Medication Instructions Recorded Confirmed Type lithium carbonate 300 mg tablet 300 mg PO AMHS 06/04/22 01/27/25 History mirtazapine 30 mg tablet (Remeron) 30 mg PO HS 06/23/22 01/27/25 History blood sugar diagnostic (OneTouch 08/06/22 12/18/24 History Verio test strips) fluticasone propionate 50 1 spray intranasal HS PRN allergy 03/16/23 01/27/25 Rx mcg/actuation nasal symptoms #16 grams spray,suspension (Flonase Allergy Relief) FreeMEDSEEK Rosalie 2 [place] (flash #1 ea 05/13/23 12/18/24 Rx glucose scanning reader) rimegepant 75 mg disintegrating 75 mg PO DAILY PRN Migraine 09/14/23 01/27/25 Rx tablet (Nurtec ODT) Headache #8 tabs [facility] 11/22/23 12/18/24 Rx Verio test strips) blood-glucose meter (OneTouch #1 ea 11/22/23 12/18/24 Rx Verio Reflect Meter) insulin syringe-needle U-100 1 mL #300 ea 11/22/23 12/18/24 Rx 30 gauge x 1/2" (BD Insulin Syringe Ultra-Fine) lancets 33 gauge (OneTouch Delica #150 ea 11/22/23 12/18/24 Rx Plus Lancet) albuterol sulfate 90 mcg/actuation 2 inh inhalation Q6H PRN shortness 02/24/24 01/27/25 Rx aerosol inhaler (Ventolin HFA) of breath or wheezing #6.7 grams metformin 1,000 mg tablet 1,000 mg PO BID #180 tabs 03/03/24 01/27/25 Rx dutasteride 0.5 mg capsule 0.5 mg PO QAM 04/06/24 01/27/25 History glucagon 3 mg/actuation nasal 3 mg intranasal ONCE PRN Severe 04/06/24 01/27/25 History spray (Baqsimi) Hypoglycemia FreeStyle Rosalie 2 Sensor (flash #6 ea 05/02/24 12/18/24 Rx glucose sensor) testosterone 2 pump topical PM #75 grams 05/04/24 01/27/25 Rx aripiprazole 5 mg tablet 5 mg PO DAILY 05/29/24 01/27/25 History nystatin 100,000 unit/gram topical 1 applic topical BID #30 grams 06/19/24 01/27/25 Rx cream insulin glargine 100 unit/mL (3 12 unit subcut HS 07/19/24 01/27/25 History mL) subcutaneous pen (Lantus Solostar U-100 Insulin) ipratropium 0.5 mg-albuterol 3 mg 3 ml inhalation QID PRN wheezing 07/31/24 01/27/25 Rx (2.5 mg base)/3 mL nebulization #90 mL soln nebulizers (Compact Compressor #1 ea 07/31/24 12/18/24 Rx Nebulizer) Botox 200 unit injection See Rx Instructions IM .COMPLEX #1 09/18/24 01/27/25 Rx (onabotulinumtoxinA) ea cholecalciferol (vitamin D3) 50 50 mcg PO QPM #90 caps 09/19/24 01/27/25 Rx mcg (2,000 unit) capsule rosuvastatin 20 mg tablet 20 mg PO QAM #90 tabs 09/19/24 01/27/25 Rx pantoprazole 40 mg tablet,delayed 40 mg PO BID #60 tabs 09/21/24 01/27/25 Rx release trazodone 100 mg tablet 100 mg PO HS 10/03/24 01/27/25 History levothyroxine 200 mcg tablet 200 mcg PO QAM #30 tabs 10/22/24 01/27/25 Rx pen needle, diabetic 32 gauge x #100 ea 10/23/24 12/18/24 Rx 5/32" (BD Vy 2nd Gen Pen Needle) bumetanide 1 mg tablet 1 mg PO QAM #30 tabs 10/26/24 01/27/25 Rx vitamin B complex (Vitamins B 1 cap PO QAM #30 caps 10/26/24 01/27/25 Rx Complex capsule) hydrocodone 7.5 mg-acetaminophen 1 tab PO Q6H 11/19/24 01/27/25 History 325 mg tablet prazosin 5 mg capsule 5 mg PO HS 11/19/24 01/27/25 History propranolol 120 mg capsule,24 120 mg PO HS 11/19/24 01/27/25 History hr,extended release tirzepatide 2.5 mg/0.5 mL 2.5 mg (0.5 mL) subcut Q7D #2 mL 11/22/24 01/27/25 Rx subcutaneous pen injector (Unruly) lorazepam 0.5 mg tablet 0.5 mg PO DAILY PRN Seizure 11/23/24 01/27/25 History Activity levetiracetam 1,000 mg tablet 1,000 mg PO Q12H #60 tabs 11/26/24 01/27/25 Rx aspirin 81 mg tablet,delayed 81 mg PO QAM #90 tabs 11/27/24 01/27/25 Rx release duloxetine 60 mg capsule,delayed 60 mg PO BID 11/27/24 01/27/25 History release ferrous sulfate 325 mg (65 mg 325 mg PO .qod 11/27/24 01/27/25 History iron) tablet desmopressin 0.2 mg tablet 0.4 mg (2 x 0.2 mg) PO BID #120 11/30/24 01/27/25 Rx tabs metoprolol succinate 25 mg 25 mg PO HS #90 tabs 11/30/24 01/27/25 Rx tablet,extended release 24 hr somatropin 5 mg/1.5 mL (3.3 mg/mL) 0.3 mg (0.09 mL) subcut QPM #2 11/30/24 01/27/25 Rx subcutaneous pen injector syringes (Norditropin FlexPro) clopidogrel 75 mg tablet (Plavix) 75 mg PO DAILY 12/03/24 01/27/25 History budesonide 0.5 mg/2 mL suspension 0.5 mg (2 mL) inhalation DAILY #60 12/04/24 01/27/25 Rx for nebulization mL lisinopril 40 mg tablet 40 mg PO DAILY #90 tabs 01/16/25 03/09/25 Rx divalproex 500 mg tablet,delayed 1,000 mg (2 x 500 mg) PO DAILY #60 12/14/24 01/27/25 Rx release tabs lacosamide 150 mg tablet 150 mg PO BID #60 tabs 12/26/24 01/27/25 Rx famotidine 20 mg tablet (Acid 20 mg PO DAILY 6 weeks #42 tabs 01/11/25 01/27/25 Rx Insurance Rater (famotidine)) arformoterol 15 mcg/2 mL solution 2 ml inhalation BID 01/16/25 01/27/25 History for nebulization (Brovana) oxybutynin chloride 5 mg 5 mg PO DAILY 01/16/25 01/27/25 History tablet,extended release 24 hr hydrocortisone 10 mg tablet 10 mg PO UD #135 tabs 01/25/25 01/27/25 Rx Past Med/Surg History Problem List (Updated 01/27/25 @ 22:13 by Bryce Duran, ) Ambulatory dysfunction (Acute) Diaphoresis (Acute) Acute hypoxic respiratory failure (Acute) Influenza A (Acute) Influenza A LPRD (laryngopharyngeal reflux disease) Arthralgia Anti-cyclic citrullinated peptide antibody positive Restrictive lung disease Fall (Acute) Hematoma (Acute) Venous stasis ulcers (Acute) Chronic venous insufficiency (Chronic) Seizure disorder (Acute) Presbyopia of both eyes Epiretinal membrane (ERM) of left eye Ocular hypertension Secondary cataract of left eye with vision obscured Combined form of senile cataract of right eye Abnormal PFTs (pulmonary function tests) Abnormal chest CT COPD (chronic obstructive pulmonary disease) Demyelinating disease Hypertension (Acute) Secondary adrenal insufficiency Pituitary hypogonadism Follows with endocrinology- Pituitary hypothyroidism Follows with endocrinology- Non-occlusive coronary artery disease Lumbar stenosis with neurogenic claudication Esophageal dysphagia Anxiety (Chronic) Mitral regurgitation Essential tremor Idiopathic polyneuropathy Arachnoid cyst of posterior cranial fossa Obstructive sleep apnea (Acute) Mixed hyperlipidemia Ulcerative colitis Anemia (Acute) Bipolar disorder (10/11/22) Chronic migraine without aura or status migrainosus Uncontrolled type 2 diabetes mellitus with hyperglycemia Suspect low glycation index meaning his A1c is typically about 2 points lower than what his average glucose would suggest. Current use of proton pump inhibitor Severe obesity (BMI 35.0-35.9 with comorbidity) 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 Growth hormone deficiency Depression BPH with obstruction/lower urinary tract symptoms Medical History Presence of Watchman left atrial appendage closure device Status epilepticus (09/13/24) Knee hemarthrosis, right (09/13/24) Acute on chronic anemia (09/13/24) Acute metabolic encephalopathy (09/13/24) Acute hypoxic respiratory failure (09/13/24) Laceration of toe of right foot Closed fracture of right fibula with malunion Type 2 diabetes mellitus Right fibular fracture Acute on chronic respiratory failure with hypoxia and hypercapnia Shortness of breath Acute hypercapnic respiratory failure Acute hypercapnic respiratory failure Chronic respiratory failure with hypoxia Obesity CKD (chronic kidney disease), stage III Peripheral edema Seizure disorder Atrial fibrillation (02/15/24) Chronic low back pain Panhypopituitarism Lumbosacral radiculopathy Toxic encephalopathy Chest pain Acute dyspnea Acute CHF Hypoglycemia Syncope and collapse Reason for loop recorder No recent issues since bed bound from femur fracture in Sep 2022 per patient Internal hemorrhoids Recurrent seizures Pituitary diabetes insipidus Follows with endocrinology- on DDAVP Spondylolysis, lumbar region Right lumbar radiculopathy HTN (hypertension) Bipolar disorder Adrenal insufficiency Pituitary adenoma Diabetes Bleeding (02/16/24) Acute blood loss anemia (02/19/24) Hyperactive gag reflex BRCA gene positive tested positive in Aug 2023 [place] > reason for up coming EGD Family history of BRCA gene mutation PTSD (post-traumatic stress disorder) Epidural lipomatosis Chronic left sacroiliac pain Benzodiazepine overdose none since Nov 2022 Presence of cardiac device Loop recorder > last checked fall 2022 Hx of fracture of foot Sep 2022- right > cast since removed > still gets painful Fracture of fibula, right, closed Cerebral concussion May 2023 during seizure > no further issues Orthostatic hypotension Pseudoseizures Sensorineural hearing loss of both ears Rectal bleeding on occasion History of COVID-19 10/2021 - fatigue; resolved. Mitral valve regurgitation follows with Dr. Phillips Vertigo Panhypopituitarism Lower extremity edema Elevated LFTs Bilateral hand pain Pituitary neoplasm Dx'ed in 2001- s/p surgical resection and XRT Repeat surgery in 2018 secondary to tumor regrowth at [facility] Kidney stones HX Prostate mass benign Bladder mass benign Obstructive sleep apnea of adult cpap > non compliant per pt Surgical History S/P TURP (status post transurethral resection of prostate) [place] [facility] [place] History of cardiac cath 07/2021 - no stents S/P epidural steroid injection History of lithotripsy Status post right foot surgery replaced 5th metatarsal--hardware in place History of bladder surgery remove mass History of prostate surgery remove mass History of colonoscopy History of esophagogastroduodenoscopy (EGD) History of tooth extraction History of wisdom tooth extraction History of brain surgery x2---2004 @ [facility] [place] @ [facility]--for brain tumors > caused epilepsy Family History Grandmother (Paternal) Family history of diabetes mellitus Aunt Family history of diabetes mellitus Uncle Family history of diabetes mellitus Father Prostate cancer Heart disease Osteoarthritis Mother Cardiac disorder Grandmother (Maternal) Myocardial infarction Other Asthma Cancer Hypertension No family history of adverse response to anesthesia No family history of bleeding disorder Stroke Denies family history of Ovarian cancer Breast cancer Colorectal cancer Social History Smoking Status: Unknown if ever smoked Tobacco Type: Smokeless Tobacco (Dip or Chew) Second Hand Exposure: No; Do You Dip or Chew Tobacco: No; Hx Alcohol Use: Yes Alcohol type: beer Alcohol Intake Frequency: Never Hx Substance Use: No Preferred Language: Latvian Communication Ability: Effective Communication Ability Comment: Unable to obtain due to patient condition. 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 caffeine: No (1/2 20 oz bottle of mountain dew. ) during the past year weight has: increased > 10 lbs Physical Activity Frequency: Daily Physical Activity Frequency Comment: walking, 1.5 miles daily. Seatbelt Use: always Do you think of yourself as: straight/heterosexual Gender Identity: Male Assistive Devices: Oxygen - at Night Review of Systems Review of Systems: All systems reviewed & are unremarkable except as noted in Subjective Physical Exam Physical Exam: General: No acute distress Skin: Warm and dry; feet with dry skin Head: Normocephalic, atraumatic Eyes: PERRL, conjunctivae clear, sclera non-icteric ENT: External ear and ear canal without swelling; nose atraumatic; good dentition, tongue normal appearance, pharynx normal Neck: Supple, no LAD Cardio: RRR, no M/G/R, S1 and S2 normal Resp: Completing breathing treatment during time of evaluation; no respiratory distress, Lungs CTA in all lobes bilaterally, no wheezes, rales, or rhonchi Abdomen: Soft, symmetric, nontender; No masses or hepatosplenomegaly; Bowel sounds normoactive MSK: No deformities; pulses palpable and equal; no edema. Neuro: Awake, alert; CN grossly intact Psych: Appropriate mood and affect; good judgement and insight. Results & Data Results & Data Vital Signs (Past 12 Hours) Vital Signs Temp Pulse Pulse Resp BP BP Pulse Ox 01/27/25 21:00 83 18 155/84 H 97 01/27/25 18:57 86 01/27/25 18:48 85 18 96 01/27/25 18:39 01/27/25 18:39 01/27/25 18:33 36.7 C 88 18 129/73 97 O2 Del Method 01/27/25 21:00 Room Air 01/27/25 18:57 01/27/25 18:48 Room Air 01/27/25 18:39 Room Air 01/27/25 18:39 Room Air 01/27/25 18:33 Room Air Laboratory Results 01/27/25 01/27/25 19:17 19:09 WBC 12.30 H RBC 4.39 L Hgb 12.8 L Hct 39.3 L MCV 89.5 MCH 29.2 MCHC 32.6 RDW Std Deviation 46.7 H RDW Coeff of Yanira 14.5 Plt Count 186 MPV 8.6 L Immature Gran % (Auto) 2.2 Neut % (Auto) 70.5 Lymph % (Auto) 20.7 [place] % (Auto) 5.5 Eos % (Auto) 0.6 Baso % (Auto) 0.5 Neut # (Auto) 8.68 H Lymph # (Auto) 2.54 [place] # (Auto) 0.68 H Eos # (Auto) 0.07 Baso # (Auto) 0.06 Immature Gran # (Auto) 0.27 H PT 10.8 INR 1.0 VBG pH 7.45 H VBG pCO2 38 VBG pO2 73 VBG HCO3 26 VBG O2 Saturation 96.6 VBG Base Excess 2.4 Sodium 143 Potassium 3.8 Chloride 106 Carbon Dioxide 27 Anion Gap 10 BUN 11 Creatinine 1.08 Est Cr Clr Drug Dosing Not Reportable eGFR 80.54 BUN/Creatinine Ratio 10.2 Glucose 155 H Calcium 9.9 Total Bilirubin 0.4 AST 15 ALT 31 Alkaline Phosphatase 45 Troponin I High Sens 3.7 B-Natriuretic Peptide 50 Total Protein 6.5 Albumin 4.3 Globulin 2.2 L Albumin/Globulin Ratio 2.0 Adenovirus (PCR) Not Detected B. pertussis DNA (PCR) Not Detected B.parapertussis DNA PCR Not Detected C. pneumoniae DNA (PCR) Not Detected Coronavirus OC43 (PCR) Not Detected Coronavirus HKU1 (PCR) Not Detected Coronavirus 229E (PCR) Not Detected SARS-CoV-2 (PCR) Not Detected Coronavirus NL63 (PCR) Not Detected Human Metapneumovir PCR Not Detected Influenza Type A (PCR) Not Detected Influenza Type B (PCR) Not Detected M. pneumoniae (PCR) Not Detected Parainfluenza 1 (PCR) Not Detected Parainfluenza 2 (PCR) Not Detected Parainfluenza 3 (PCR) Not Detected Parainfluenza 4 (PCR) Not Detected RSV (PCR) Not Detected Entero/Rhino (PCR) Not Detected Diagnostic Findings Chest X-Ray 01/27/25 18:48 EXAM: Radiograph of the Chest 1 View INDICATION: Dyspnea TECHNIQUE: Frontal view of the chest. COMPARISON: 01/17/2025 FINDINGS: Lungs and pleural spaces: Persistent but improved airway thickening and resolved right perihilar infiltrate. No pleural effusion or pneumothorax. Heart: Stable enlarged shadow and loop recorder. Mediastinum: Normal contour. Bones/joints: No fracture, erosion or dislocation. Soft tissues: No abnormality noted. No radiopaque foreign body noted. Upper abdomen: No abnormality noted. IMPRESSION: Persistent but improved airway thickening and resolved right perihilar infiltrate. ACT 112: N/A Electronically signed by Dennise Asher 01-27-2025 7:28 PM Medications Administered Methylprednisolone 80mg IV Albuterol 3mL neb Code Status & VTE Plan Code Status DNR/DNI VTE Prophylaxis Plan VTE Prophylaxis will be ordered: Yes Supervising Physician Co-Signing Physician Notes Attending addendum: I have physically seen this patient, have supervised the PAIGE's activities, and agree with the H&P unless as otherwise noted. Assessment and Plan: The patient is a 54-year-old male with past medical history including seizure disorder, CORINA, and hypopituitary is him, GERD, bipolar disorder, diabetes mellitus type 2, restrictive lung disease, and atrial fibrillation, with most recent hospitalizations admitted from 10/23-10/26/2412-11/20/2024, and 01/16- 01/25/2025. Most recent hospitalization was to treat acute hypoxic respiratory failure associated with influenza A. Patient reports that since discharge, he has developed increased shortness of breath again, and reports having had a seiz ure while at home last evening that lasted about 60 seconds. Workup in the emergency department included chest x-ray which showed persistent but improved airway thickening and resolved right perihilar infiltrate. From the emergency department patient received DuoNeb treatment, and Solu-Medrol 80 mg IV. [facility]. #Restrictive lung disease/persistent shortness of breath/dyspnea on exertion- Patient is being readmitted to the hospital after 10-day treatment for acute hypoxic respiratory failure associated with influenza and secondary bacterial infection DuoNebs every 2 hours as needed Solu-Medrol 40 mg IV every morning Nasal cannula oxygen, keep pulse ox 92-94% Respiratory BioFire panel negative #Ambulatory dysfunction- Patient continues to feel generally weak, and does not feel back to baseline Consult PT/OT #Seizure disorder- EEG on 01/17 with no focal abnormalities, potentially epileptic discharges or abnormal slow activity MRI brain on 01/17 negative for acute findings #Diabetes mellitus- Consult pharmacy glycemic management while on steroids #Chronic medical conditions: CORINA-CPAP at bedtime [id number] will act as stress dose steroids GERD-continue famotidine, pantoprazole Bipolar disorder-continuing on aripiprazole, lithium, lorazepam, mirtazapine, propranolol, prazosin, and trazodone. Likely a factor in medical management of lung processes Hyperlipidemia-continue rosuvastatin Atrial fibrillation/hypertension-status post Watchman procedure; continue Plavix, aspirin and metoprolol PG Care Time/CCT Total # of Minutes Spent Total Time Spent with Patient: Total time spent is greater than 50% in coordination of care (as documented) at patient's floor/unit and/or counseling patient: Coding Level of Care Code 85161 INT INP/OBS CARE 3/75MIN Diagnoses Dyspnea R06.00 Dyspnea type: unspecified Ambulatory dysfunction R26.2 Seizure disorder G40.909 (1) Dyspnea Dyspnea type: unspecified Qualified Code(s): R06.00 - Dyspnea, unspecified
[2025-01-27] MEDS: levETIRAcetam 500 MG TAB PO STA (22:30)
--- NOTE | 2025-01-27 23:30 | XRay Report ---
Exam(s): XR RIGHT FOOT, 3+ views EXAM: XR Right Foot Complete, 3 or More Views CLINICAL HISTORY: acute on chronic pain. TECHNIQUE: Frontal, lateral and oblique views of the right foot. COMPARISON: No relevant prior studies available. FINDINGS: Bones/joints: Incidental screws noted in the distal fifth metatarsal diaphysis. No acute osseous abnormality. No abnormal alignment. Mild degenerative changes involve the first metatarsal phalangeal joint. Incidental remote healed fracture involving the distal fibular diaphysis. Soft tissues: No significant soft tissue abnormality. No radiopaque foreign body. IMPRESSION: No acute findings involving the right foot. No significant degenerative changes. Electronically signed by: Niko Lamas MD 01/27/25 23:28 PM
[2025-01-28] MEDS ORDERED: ALBUT/IPRATROP 3MG/0.5MG NEB 3 ML VIAL INH PRN (00:13)
[2025-01-28] MEDS ORDERED: ALBUTEROL HFA 8 GM INHALER INH PRN (00:13)
[2025-01-28] MEDS ORDERED: LORazepam 0.5 MG TAB PO PRN (00:13)
[2025-01-28] MEDS ORDERED: ONDANSETRON INJ 2 MG/ML 2 ML VIAL IV PRN (00:13)
[2025-01-28] MEDS ORDERED: POLYETHYLENE (MIRALAX) 17 GM PACK PO PRN (00:13)
[2025-01-28] MEDS ORDERED: FLUTICASONE PROPIONATE NA SPR 16 GM BTL PRN (00:13)
[2025-01-28] MEDS ORDERED: DEXTROSE 50% 50 ML SYRINGE IV PRN (00:49)
[2025-01-28] MEDS ORDERED: PHARMACY GLYCEMIC MGMT CONSULT PRN (00:49)
[2025-01-28] MEDS ORDERED: GLUCOSE 10 TAB/TUBE PO PRN (00:49)
[2025-01-28] MEDS ORDERED: GLUCOSE 40% GEL 15 GM TUBE PO PRN (00:49)
[2025-01-28] MEDS ORDERED: GLUCAGON FOR INJ 1 MG VIAL SQ PRN (00:49)
[2025-01-28] MEDS ORDERED: CARBOHYDRATES FOR HYPOGLYCEMIA PO PRN (00:49)
[2025-01-28] MEDS ORDERED: Patient's HEIGHT &/or WEIGHT Needed STA (01:04)
[2025-01-28] MEDS: INSULIN ASPART PER UNIT CHARGE SC SCH (01:39)
[2025-01-28] MEDS: LANTUS PER UNIT CHARGE SQ ONE (01:39)
[2025-01-28] MEDS: traZODone HCL 50 MG TAB PO ONE (01:41)
[2025-01-28] MEDS: HYDROCODONE/ACETAMINOPHEN 7.5/325MG TAB PO SCH (01:41)
[2025-01-28] MEDS: LACOSAMIDE 50 MG TABLET PO STA (01:42)
[2025-01-28] MEDS: levETIRAcetam 500 MG TAB PO STA (01:43)
[2025-01-28] MEDS: METOPROLOL SUCC 25MG EXT REL TAB PO STA (01:44)
[2025-01-28] MEDS: MIRTAZAPINE TAB 15 MG TAB PO ONE (01:44)
[2025-01-28] MEDS: PRAZOSIN HCL 1 MG CAP PO STA (01:45)
[2025-01-28] MEDS: PROPRANOLOL HCL 60 MG LA CAP PO STA (01:46)
[2025-01-28] MEDS: LEVOTHYROXINE SODIUM 200 MCG TABLET PO SCH (06:02)
[2025-01-28] MEDS: BUDESONIDE 0.5 MG/2 ML VIAL (PULMICORT) INH SCH (07:20)
[2025-01-28] MEDS: FORMOTEROL 20 MCG/2 ML VIAL INH SCH (07:20)
[2025-01-28 07:23] LABS: Hematocrit (blood only) 36.7 % (42.0-52.0); Hemoglobin 12.4 g/dl (14.0-18.0); Mean Corpuscular Hemoglobin 29.4 pg (25.0-34.0); Mean Corpuscular Hgb Conc 33.8 g/dL (32.0-36.0); Mean Platelet Volume 8.7 fL (9.4-12.4); Platelet Count 168 K/uL (130-400); RDW Coefficient of Variation 14.1 % (11.5-14.5); RDW Standard Deviation 43.9 fL (36.4-46.3); Red Blood Count 4.22 M/uL (4.70-6.10); White Blood Count 16.04 K/ul (4.8-10.8)
[2025-01-28] MEDS: methylPREDNISolone 40 MG in SYRINGE 0 ML IV SCH (08:15)
[2025-01-28] MEDS: FAMOTIDINE 20 MG TAB PO SCH (08:15)
[2025-01-28] MEDS: DESMOPRESSIN ACETATE 0.1 MG TAB PO SCH (08:15)
[2025-01-28] MEDS: DIVALPROEX DELAY RELEASE 500 MG TAB PO SCH (08:16)
[2025-01-28] MEDS: ARIPiprazole 5 MG TAB PO SCH (08:16)
[2025-01-28] MEDS: FINASTERIDE 5 MG TAB PO SCH (08:16)
[2025-01-28] MEDS: levETIRAcetam 500 MG TAB PO SCH (08:17)
[2025-01-28] MEDS: DULoxetine HCL 60 MG CAP PO SCH (08:17)
[2025-01-28] MEDS: lisinopril 40 MG TAB PO SCH (08:18)
[2025-01-28] MEDS: LITHIUM CARBONATE 300 MG TAB PO SCH (08:18)
[2025-01-28] MEDS: CLOPIDOGREL BISULFATE 75 MG TAB PO SCH (08:18)
[2025-01-28] MEDS: ASPIRIN 81 MG ECTAB PO SCH (08:18)
[2025-01-28] MEDS: ROSUVASTATIN CALCIUM 20 MG TAB PO SCH (08:18)
[2025-01-28] MEDS: BUMETANIDE 1 MG TAB PO SCH (08:18)
[2025-01-28] MEDS: PANTOprazole 40 MG TAB PO SCH (08:18)
[2025-01-28] MEDS: OXYBUTYNIN CHLORIDE XL 5 MG TABCR PO SCH (08:18)
[2025-01-28] MEDS: NYSTATIN CR 15 GM TUBE EXT SCH (08:33)
[2025-01-28] MEDS: LACOSAMIDE 50 MG TABLET PO SCH (08:50)
[2025-01-28] MEDS ORDERED: methylPREDNISolone 1000 MG/16 ML IV SCH (09:00)
--- NOTE | 2025-01-28 09:42 | Pharmacy Report ---
Pharmacy Glycemic Short Note 2 - Date of Service January 28, 2025 - Glycemic Short BSG Results (Last 24 hours): 01/27/25 01/28/25 01/28/25 19:09 00:34 06:55 Glucose 155 H POC Glucose 165 H 162 H OUTPATIENT ANTIDIABETIC REGIMEN: * Lantus 20 units SQ QHS (per patient) * metformin 1000mg po BID * Mounjaro 2.5mg SQ weekly HbA1c: 6% on 01/17/25 ASSESSMENT: * 54 year old male admitted 01/27 for increased SOB, seizure, and worsening right foot pain since discharge on 01/25. Pharmacy was consulted for glycemic management while he is admitted. * BSG on admit last evening was 155mg/dL. Methylprednisolone 80mg iv x 1 was given in the ED. Lantus 15 units SQ QHS was started last evening and a weight based bolus insulin regimen with a stress of 2 was also started. * Fasting BSG this morning was 162mg/dL and methylprednisolone 40mg iv daily has been ordered to start today. Lunch BSG was 149mg/dL. Parameters of the bolus insulin were loosened some to prevent overcorrection. PLAN FOR INPATIENT GLYCEMIC CONTROL: * Hold outpatient diabetes medications * Basal insulin * Lantus 15 units SQ QHS * Bolus insulin * NovoLog per scale ACHS or Q6hrs while NPO * Goal Range: Low 110 mg/dL - High 140 mg/dL * Correction Factor: 25 mg/dL/unit * Nutritional / Prandial insulin per carb ratio of 1 unit per 10 grams CHO consumed
--- NOTE | 2025-01-28 15:34 | Hospitalist Progress Note ---
Date of Service January 28, 2025 Assessment & Plan (1) Dyspnea: (2) Ambulatory dysfunction: (3) Seizure disorder: Plan 54-year-old male PMHx seizure disorder, CORINA, panhypopituitary, GERD, bipolar disorder, T2DM, restrictive lung disease, and A-fib presenting after recent admission from 01/16/2025 until 01/25/2025 (acute hypoxic respiratory failure, influenza) who presents for increased SOB and R foot pain worsening since discharge. ED evaluation with leukocytosis 12.3, H&H 12.8/29.3, PT/INR WNL, pH 7.45, CMP grossly WNL with exception of globulin 2.2 and glucose 155; BioFire negative; persistent but improved airway thickening and resolved right perihilar infiltrate; foot x-ray pending. Provided with methylprednisolone and albuterol nebulizer in ED. #Dyspnea/Hx of restrictive lung disease Worsening SOB present since hospital discharge per patient, with discharge being 01/25/2025 after a 10-day stay for acute hypoxic respiratory failure from influenza/?PNA. Overall hemodynamically stable on admission and not hypoxic. Does follow with pulm. 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 - PT/OT ordered, appreciate assistance #Seizure disorder States last seizure the night [employer], grand mal and lasting < 60 seconds per patient ( reports). Seizure vs pseudoseizure noted by neurology consultation. - Seizure precautions - 01/17 EEG no focal abnormalities, potentially epileptogenic discharges, or abnormal slow activity; MRI brain negative for acute findings at that time - Prior risk resp depression so benzos were NOT ordered during last admission #T2DM H/o DMT2 metformin, glargine 12U, mounjaro - Most recent A1C 12/2024 @ 6% - SSI with target BSG range 110-140mg/dL, CF 40, carb ratio 15; Lantus 4 BID - BSG ACHS - Pharm glycemic management consult placed, appreciate assistance- Adjust regimen as needed #CORINA- Follows with pulmonology, CPAP nightly #Panhypopituitary- Follows with endo; Consider stress steroids if pt becomes hemodynamically unstable #GERD- Famotidine, pantoprazole #Psych/Bipolar- Aripiprazole, lithium, lorazepam, mirtazapine, propranolol, prazosin, trazodone #HTN- Lisinopril #HLD- Rosuvastatin #Afib- Watchman device; plavix + ASA, metoprolol Dispo: Admit, PCU VTE Prophylaxis: Lovenox Disposition : Patient needs rehab, awaiting placement Admission and Anticipated Discharge Date Admission Date: January 27, 2025 Subjective Patient seen and examined today his shortness of breath is baseline, but still complains of right foot pain, unable to bear weight right foot Review of Systems Review of Systems: All systems reviewed are negative, apart from the ones contained in the history. Physical Exam Physical Exam: The patient is awake, alert and oriented 3, well developed and well nourished, normocephalic and atraumatic, lying in bed and in no acute distress. HEENT--PERRL, EOMI, mucous membranes and oropharynx mildly dry Neck--supple. No JVD. No bruits. Thyroid normal, trachea midline, no adenopathy. Heart--normal S1 and S2. No murmurs, rubs or gallops. Lungs--clear bilaterally, no respiratory distress, no accessory muscle use. Abdomen--normal bowel sounds and soft. Extremities--no cyanosis or clubbing. No edema. Dermatologic--normal skin turgor, normal color, no abnormal lymph nodes, no rash. Neurologic--cranial nerves II through XII grossly intact. Rheumatologic--normal range of motion. Psychiatric--normal affect. Results & Data Results & Data Vital Signs (Past 12 Hours) Vital Signs Temp Pulse Pulse Resp BP Pulse Ox O2 Del Method 01/28/25 15:15 85 01/28/25 10:33 98.2 F 78 20 132/78 94 Nasal Cannula 01/28/25 08:53 Nasal Cannula 01/28/25 07:20 73 18 93 Nasal Cannula 01/28/25 07:00 97.7 F 72 16 105/67 94 Nasal Cannula O2 Flow Rate 01/28/25 15:15 01/28/25 10:33 3 01/28/25 08:53 3 01/28/25 07:20 3 01/28/25 07:00 PG Care Time/CCT Total # of Minutes Spent Total Time Spent with Patient: Total time spent is greater than 50% in coordination of care (as documented) at patient's floor/unit and/or counseling patient: Coding Level of Care Code 57162 SUB INP/OBS CARE 2/35MIN Diagnoses Dyspnea R06.00 Dyspnea type: unspecified Ambulatory dysfunction R26.2 Seizure disorder G40.909 Time Spent (min) 35 (1) Dyspnea Dyspnea type: unspecified Qualified Code(s): R06.00 - Dyspnea, unspecified
[2025-01-28 20:37] VITALS: RESP 18
[2025-01-28] MEDS: LANTUS PER UNIT CHARGE SC SCH (20:51)
[2025-01-28] MEDS: PRAZOSIN HCL 1 MG CAP PO SCH (20:52)
[2025-01-28] MEDS: traZODone HCL 100 MG TAB PO SCH (20:52)
[2025-01-28] MEDS: PROPRANOLOL HCL 60 MG LA CAP PO SCH (20:53)
[2025-01-28] MEDS: METOPROLOL SUCC 25MG EXT REL TAB PO SCH (20:54)
[2025-01-28] MEDS: MIRTAZAPINE TAB 15 MG TAB PO SCH (20:54)
[2025-01-28] MEDS: TESTOSTERONE TOP SCH (20:56)
[2025-01-29 02:43] VITALS: BP 121/73; TEMP 97.7
--- NOTE | 2025-01-29 06:13 | Electrocardiogram Report ---
Test Reason : Blood Pressure : */* mmHG Vent. Rate : 86 BPM Atrial Rate : 86 BPM P-R Int : 162 ms QRS Dur : 84 ms QT Int : 378 ms P-R-T Axes : 71 -11 53 degrees QTcB Int : 452 ms Normal sinus rhythm Normal ECG When compared with ECG of 17-Jan-2025 06:58, No significant change was found Confirmed by Og Cooper ([id number] on 01/29/2025 6:13:23 AM Referred By: REFERRED SELF Confirmed By: Og Cooper
[2025-01-29 07:12] VITALS: O2SAT 97
[2025-01-29] MEDS: FERROUS SULFATE 325 MG TAB PO SCH (08:38)
[2025-01-29 08:47] LABS: Hematocrit (blood only) 37.3 % (42.0-52.0); Hemoglobin 12.2 g/dl (14.0-18.0); Mean Corpuscular Hemoglobin 28.8 pg (25.0-34.0); Mean Corpuscular Hgb Conc 32.7 g/dL (32.0-36.0); Mean Platelet Volume 8.5 fL (9.4-12.4); Platelet Count 154 K/uL (130-400); RDW Coefficient of Variation 14.4 % (11.5-14.5); RDW Standard Deviation 45.8 fL (36.4-46.3); Red Blood Count 4.24 M/uL (4.70-6.10); White Blood Count 17.82 K/ul (4.8-10.8)
[2025-01-29 10:48] VITALS: PULSE 81
--- NOTE | 2025-01-29 13:51 | Discharge Summary ---
Date of Service January 29, 2025 Admission HPI Per Admitting Provider 54-year-old male PMHx seizure disorder, CORINA, panhypopituitary, GERD, bipolar disorder, T2DM, restrictive lung disease, and A-fib presenting after recent admission from 01/16/2025 until 01/25/2025 (acute hypoxic respiratory failure, influenza) who presents for increased SOB and R foot pain worsening since discharge. Patient states that once arriving home after discharge from [place], he started to feel as though he was having SOB. Over the course of 48 hours elapsed, patient states he is having worsening SOB and having a nonproductive cough. Reports fever of 101 F (Tmax) the day prior to arrival as well as some abdominal pain in his central abdomen. 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 Denying N/V. 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 Denying chest pain, palpitations, nausea/vomiting, LUTS, new numbness/tingling, or additional URI symptoms. ED evaluation with leukocytosis 12.3, H&H 12.8/29.3, PT/INR WNL, pH 7.45, CMP grossly WNL with exception of globulin 2.2 and glucose 155; BioFire negative; persistent but improved airway thickening and resolved right perihilar infiltrate; foot x-ray pending. Provided with methylprednisolone and albuterol nebulizer in ED. Admission Exam (Per Admitting) Constitutional The patient is awake, alert and oriented 3, well developed and well nourished, normocephalic and atraumatic, lying in bed and in no acute distress. HEENT--PERRL, EOMI, mucous membranes and oropharynx mildly dry Neck--supple. No JVD. No bruits. Thyroid normal, trachea midline, no adenopathy. Heart--normal S1 and S2. No murmurs, rubs or gallops. Lungs--clear bilaterally, no respiratory distress, no accessory muscle use. Abdomen--normal bowel sounds and soft. Extremities--no cyanosis or clubbing. No edema. Dermatologic--normal skin turgor, normal color, no abnormal lymph nodes, no rash. Neurologic--cranial nerves II through XII grossly intact. Rheumatologic--normal range of motion. Psychiatric--normal affect. Discharge Data Consultations 01/27/25 20:40 ED Decision to Admit Stat Hospital Course (1) Dyspnea: (2) Ambulatory dysfunction: (3) Seizure disorder: Plan 54-year-old male PMHx seizure disorder, CORINA, panhypopituitary, GERD, bipolar disorder, T2DM, restrictive lung disease, and A-fib presenting after recent admission from 01/16/2025 until 01/25/2025 (acute hypoxic respiratory failure, influenza) who presents for increased SOB and R foot pain worsening since discharge. ED evaluation with leukocytosis 12.3, H&H 12.8/29.3, PT/INR WNL, pH 7.45, CMP grossly WNL with exception of globulin 2.2 and glucose 155; BioFire negative; persistent but improved airway thickening and resolved right perihilar infiltrate; foot x-ray pending. Provided with methylprednisolone and albuterol nebulizer in ED. #Dyspnea/Hx of restrictive lung disease Worsening SOB present since hospital discharge per patient, with discharge being 01/25/2025 after a 10-day stay for acute hypoxic respiratory failure from influenza/?PNA. Overall hemodynamically stable on admission and not hypoxic. Does follow with pulm. 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 - PT/OT ordered, appreciate assistance #Seizure disorder States last seizure the night [employer]IL[employer], grand mal and lasting < 60 seconds per patient ( reports). Seizure vs pseudoseizure noted by neurology consultation. - Seizure precautions - 01/17 EEG no focal abnormalities, potentially epileptogenic discharges, or abnormal slow activity; MRI brain negative for acute findings at that time - Prior risk resp depression so benzos were NOT ordered during last admission #T2DM H/o DMT2 metformin, glargine 12U, mounjaro - Most recent A1C 12/2024 @ 6% - SSI with target BSG range 110-140mg/dL, CF 40, carb ratio 15; Lantus 4 BID - BSG ACHS - Pharm glycemic management consult placed, appreciate assistance- Adjust regimen as needed #CORINA- Follows with pulmonology, CPAP nightly #Panhypopituitary- Follows with endo; Consider stress steroids if pt becomes hemodynamically unstable #GERD- Famotidine, pantoprazole #Psych/Bipolar- Aripiprazole, lithium, lorazepam, mirtazapine, propranolol, prazosin, trazodone #HTN- Lisinopril #HLD- Rosuvastatin #Afib- Watchman device; plavix + ASA, metoprolol Dispo: Admit, PCU VTE Prophylaxis: Lovenox Disposition : d/c home with home health Coding Level of Care Code 09010 INP/OBS DISCH >30 MIN Diagnoses Dyspnea R06.00 Dyspnea type: unspecified Ambulatory dysfunction R26.2 Seizure disorder G40.909 Time Spent (min) 35
[2025-01-29] MEDS ORDERED: LANTUS PER UNIT CHARGE SC SCH (21:00)
== END 2025-01-29 16:42 | disposition home health service (06) | DRG 204 ==
LOC: ED 18:31 → SUATTDRO 21:27 → 2S 21:27 → INTOOBSV 21:27 → 2S 01-28 00:06

== ENCOUNTER 2025-03-19 11:52 | Inpatient (IN) ==
--- NOTE | 2025-03-19 12:29 | Emergency Department Note ---
Impression & Plan Acute on chronic hypoxic respiratory failure, COPD (chronic obstructive pulmonary disease), Leukocytosis, Chronic adrenal insufficiency, Elevated lactic acid level ED Provider Note NAME: LINSEY VIRAMONTES Jr AGE: 54 SEX: M : 1970 ARRIVES VIA: Walk-In INFORMANT: Patient ED PROVIDER(S): Zackery Carbone MD CHIEF COMPLAINT: Shortness of breath, referred PLAN: Disposition: Admit MEDICAL DECISION MAKING: The patient is a pleasant 54-year-old gentleman with a past medical history of hypopituitarism, COPD on home oxygen, seizure disorder who presents to the emergency department via walk-in for evaluation of ongoing cough, congestion, shortness of breath in the setting of being seen at [facility] where he understands he was told he had pneumonia. He reports his primary care provider referred him to the emergency department for additional assessment. Patient reports he has had ongoing fluctuating symptoms for months. He reports chest tightness but denies chest pain. He denies nausea, vomiting, diarrhea. Patient reports he has been taking a double dose of his hydrocortisone as a stress dose over the past several days. On evaluation patient no distress, afebrile with heart rate in the 100s and vital signs otherwise stable. The patient does exhibit wheezing of bilateral lung kong with prolonged expiratory phase and mild increased work of breathing. EKG without overt acute ischemia. CXR with interstitial thickening per my personal preliminary review/interpretation. WBC 18.5 K with neutrophilia and left shift. H/H similar to prior. Platelets within normal limits. VBG without CO2 retention. Chemistry without metabolic acidosis. Initial lactic acid 7.2 with repeat downtrending to 5.9. Magnesium 1.3 with IV repletion initiated. LFTs unremarkable. High-sensitivity troponin 5.9, within normal limits. BNP 124, marginally above upper limit of normal and nonspecific. Procalcitonin is not elevated. UA with WBCs and RBCs however no bacteria. Respiratory BioFire was negative. Given the patient's history of chronic adrenal insufficiency blood cultures were obtained and empiric treatment initiated with IV Zosyn. 100 mg of IV stress dose hydrocortisone administered. Hour-long DuoNeb administered as well as guaifenesin. CT of the chest was performed and demonstrates cardiomegaly without definite pulmonary edema. No definite airspace consolidation. Unchanged subcarinal lymphadenopathy is noted. Mild subsegmental bibasilar atelectasis is present. On reevaluation patient did have improved air movement and decreased respiratory effort however still with mild work of breathing and so patient was placed on BiPAP. Patient agrees with plan for admission for further management. Case was discussed [place] [facility] [place], who will evaluate the patient for admission. Further management per admitting team. Triage Nursing notes reviewed and agree them. Prior/external medical records reviewed Vital Signs: reviewed Differential diagnosis: Reactive airway disease, pneumonia, pneumothorax, COPD, CHF, infections, cardiac ischemia, pulmonary embolism, musculoskeletal, gastrointestinal, as well as other pathologies. ER treatment provided: See below. Diagnostics interpreted by me: ECG: Sinus tachycardia, 114 bpm, no ectopy, no overt ST elevation or depression, QTc 460, QRS 88. Cardiac Monitoring: An order for continuous cardiac monitoring was placed and demonstrated sinus tachycardia, 114 bpm, no ectopy. Laboratory studies: See below Imaging studies: See below Consultation(s): Case was discussed with [place]. Her[place] [facility] [place], who will evaluate the patient for admission. HPI: Per MDM. ROS: See above HPI for pertinent positives & negatives. A total of 10 systems reviewed and were otherwise negative. VITALS:See Below PHYSICAL EXAMINATION: GENERAL: Awake, alert, dyspneic-appearing, in no distress HENT: Normocephalic, atraumatic. Oropharynx with dry mucous membranes and otherwise unremarkable. EYES: Normal conjunctiva. Sclera non-icteric. NECK: Supple. No nuchal rigidity. FROM. No JVD. RESPIRATORY: Wheezes of bilateral lung kong with prolonged expiratory phase and mild increased work of breathing but no acute distress. CARDIAC: Tachycardic rate, normal rhythm. Extremities warm and well perfused. Pulses equal. ABDOMEN: Soft, non-distended. No tenderness to palpation. No rebound or guarding. No masses. MUSCULOSKELETAL: Chest examination reveals no tenderness. The back is symmetrical on inspection without obvious abnormality. There is no CVA tenderness to palpation. No joint edema. LOWER EXTREMITIES: Calves are equal size bilaterally and non-tender. No edema. No discoloration. NEURO: Normal sensorium. No sensory or motor deficits noted. SKIN: No rash or jaundice noted. Zackery Carbone MD+ Past Med/Surg History Problem List (Updated 03/22/25 @ 14:48 by Zackery Carbone MD) Elevated lactic acid level (Acute) Chronic adrenal insufficiency (Acute) Leukocytosis (Acute) Chronic narcotic dependence Lactic acidosis Acute asthma exacerbation Compartment syndrome of lower extremity COPD with exacerbation Acute on chronic hypoxic respiratory failure (Acute) Migraine Ambulatory dysfunction (Acute) LPRD (laryngopharyngeal reflux disease) Arthralgia Anti-cyclic citrullinated peptide antibody positive Restrictive lung disease Fall (Acute) Hematoma (Acute) Venous stasis ulcers (Acute) Chronic venous insufficiency (Chronic) Presbyopia of both eyes Epiretinal membrane (ERM) of left eye Ocular hypertension Secondary cataract of left eye with vision obscured Combined form of senile cataract of right eye Abnormal PFTs (pulmonary function tests) Abnormal chest CT COPD (chronic obstructive pulmonary disease) (Acute) Demyelinating disease Hypertension (Acute) Secondary adrenal insufficiency Pituitary hypogonadism Follows with endocrinology- Pituitary hypothyroidism Follows with endocrinology- Non-occlusive coronary artery disease Lumbar stenosis with neurogenic claudication Esophageal dysphagia Anxiety (Chronic) Mitral regurgitation Essential tremor Idiopathic polyneuropathy Arachnoid cyst of posterior cranial fossa Obstructive sleep apnea (Acute) Mixed hyperlipidemia Ulcerative colitis Anemia (Acute) Bipolar disorder (10/11/22) Chronic migraine without aura or status migrainosus Uncontrolled type 2 diabetes mellitus with hyperglycemia Suspect low glycation index meaning his A1c is typically about 2 points lower than what his average glucose would suggest. Current use of proton pump inhibitor Severe obesity (BMI 35.0-35.9 with comorbidity) 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 Growth hormone deficiency Depression BPH with obstruction/lower urinary tract symptoms Medical History Diaphoresis Acute hypoxic respiratory failure Influenza A Influenza A Seizure disorder Presence of Watchman left atrial appendage closure device Status epilepticus (09/13/24) Knee hemarthrosis, right (09/13/24) Acute on chronic anemia (09/13/24) Acute metabolic encephalopathy (09/13/24) Acute hypoxic respiratory failure (09/13/24) Laceration of toe of right foot Closed fracture of right fibula with malunion Type 2 diabetes mellitus Right fibular fracture Acute on chronic respiratory failure with hypoxia and hypercapnia Shortness of breath Acute hypercapnic respiratory failure Acute hypercapnic respiratory failure Chronic respiratory failure with hypoxia Obesity CKD (chronic kidney disease), stage III Peripheral edema Seizure disorder Atrial fibrillation (02/15/24) Chronic low back pain Panhypopituitarism Lumbosacral radiculopathy Toxic encephalopathy Chest pain Acute dyspnea Acute CHF Hypoglycemia Syncope and collapse Reason for loop recorder No recent issues since bed bound from femur fracture in Sep 2022 per patient Internal hemorrhoids Recurrent seizures Pituitary diabetes insipidus Follows with endocrinology- on DDAVP Spondylolysis, lumbar region Right lumbar radiculopathy HTN (hypertension) Bipolar disorder Adrenal insufficiency Pituitary adenoma Diabetes Bleeding (02/16/24) Acute blood loss anemia (02/19/24) Hyperactive gag reflex BRCA gene positive tested positive in Aug 2023 [place] > reason for up coming EGD Family history of BRCA gene mutation PTSD (post-traumatic stress disorder) Epidural lipomatosis Chronic left sacroiliac pain Benzodiazepine overdose none since Nov 2022 Presence of cardiac device Loop recorder > last checked fall 2022 Hx of fracture of foot Sep 2022- right > cast since removed > still gets painful Fracture of fibula, right, closed Cerebral concussion May 2023 during seizure > no further issues Orthostatic hypotension Pseudoseizures Sensorineural hearing loss of both ears Rectal bleeding on occasion History of COVID-19 10/2021 - fatigue; resolved. Mitral valve regurgitation follows with Dr. Phillips Verpepe Panhypopituitarism Lower extremity edema Elevated LFTs Bilateral hand pain Pituitary neoplasm Dx'ed in 2001- s/p surgical resection and XRT Repeat surgery in 2018 secondary to tumor regrowth at [facility] Kidney stones HX Prostate mass benign Bladder mass benign Obstructive sleep apnea of adult cpap > non compliant per pt Surgical History S/P TURP (status post transurethral resection of prostate) History of lumbar fusion [facility] Jul 2022 History of cardiac cath 07/2021 - no stents S/P epidural steroid injection History of lithotripsy Status post right foot surgery replaced 5th metatarsal--hardware in place History of bladder surgery remove mass History of prostate surgery remove mass History of colonoscopy History of esophagogastroduodenoscopy (EGD) History of tooth extraction History of wisdom tooth extraction History of brain surgery x2---2004 @ [facility] [place], 2018 @ [facility]--for brain tumors > caused epilepsy Family History Grandmother (Paternal) Family history of diabetes mellitus Aunt Family history of diabetes mellitus Uncle Family history of diabetes mellitus Father Prostate cancer Heart disease Osteoarthritis Mother Cardiac disorder Grandmother (Maternal) Myocardial infarction Other Asthma Cancer Hypertension No family history of adverse response to anesthesia No family history of bleeding disorder Stroke Denies family history of Ovarian cancer Breast cancer Colorectal cancer Social History (Updated 03/19/25 @ 23:15 by Trenton Owens MD) Smoking Status: Never smoker Second Hand Exposure: No; Do You Dip or Chew Tobacco: No; Hx Alcohol Use: Yes Alcohol Intake Frequency: Never Hx Substance Use: No Preferred Language: Armenian Communication Ability: Effective Communication Ability Comment: Unable to obtain due to patient condition. Visual Impairment: Limited Hearing Ability: Normal Composite Worker Required: No Beliefs That Will Affect Care: None marital status: Single Current Living Situation: Spouse Current Living Situation Comment: and daughter in [place] current occupational status: disabled How many Children do You have: 3 How many Children do You have Comment: able to assist with care if needed Feels Safe at Home: Yes Childhood Exposure to Second-Hand Smoke: Yes (parents smoked) Diet: regular Diet Comment: going to be starting low carb/low calorie diet. caffeine: No (1/2 20 oz bottle of mountain dew. ) during the past year weight has: increased > 10 lbs Physical Activity Frequency: Daily Physical Activity Frequency Comment: walking, 1.5 miles daily. Seatbelt Use: always Do you think of yourself as: straight/heterosexual Gender Identity: Male Assistive Devices: Cane, CPAP, Oxygen - Continuous and Walker Allergies Allergies Allergy/AdvReac Type Severity Reaction Status Date / Time clindamycin Allergy Intermediate SWELLING Verified 03/18/25 09:26 Iodinated Contrast Media Allergy Intermediate face/eye Verified 03/18/25 09:26 swelling Quinolones Allergy Intermediate HIVES Verified 03/18/25 09:26 tomato AdvReac Verified 03/18/25 09:26 Home Meds Home Medications Medication Instructions Recorded Confirmed lithium carbonate 300 mg tablet 300 mg PO AMHS 06/04/22 03/19/25 mirtazapine 30 mg tablet (Remeron) 30 mg PO UD 06/23/22 03/19/25 blood sugar diagnostic (OneTouch 08/06/22 03/18/25 Verio test strips) dutasteride 0.5 mg capsule 0.5 mg PO QAM 04/06/24 03/19/25 glucagon 3 mg/actuation nasal 3 mg intranasal ONCE PRN Severe 04/06/24 03/19/25 spray (Baqsimi) Hypoglycemia aripiprazole 5 mg tablet 5 mg PO DAILY 05/29/24 03/19/25 insulin glargine 100 unit/mL (3 12 unit subcut HS 07/19/24 03/19/25 mL) subcutaneous pen (Lantus Solostar U-100 Insulin) trazodone 100 mg tablet 100 mg PO HS 10/03/24 03/19/25 hydrocodone 7.5 mg-acetaminophen 1 tab PO Q6H 11/19/24 03/19/25 325 mg tablet propranolol 120 mg capsule,24 120 mg PO HS 11/19/24 03/19/25 hr,extended release lorazepam 0.5 mg tablet 0.5 mg PO DAILY PRN Seizure 11/23/24 03/19/25 Activity duloxetine 60 mg capsule,delayed 60 mg PO UD 11/27/24 03/19/25 release ferrous sulfate 325 mg (65 mg 325 mg PO .qod 11/27/24 03/19/25 iron) tablet clopidogrel 75 mg tablet (Plavix) 75 mg PO DAILY 12/03/24 03/19/25 arformoterol 15 mcg/2 mL solution 2 ml inhalation BID 01/16/25 03/19/25 for nebulization (Brovana) oxybutynin chloride 5 mg 5 mg PO DAILY 01/16/25 03/19/25 tablet,extended release 24 hr Oxygen Home 01/30/25 03/18/25 amoxicillin 875 mg-potassium 1 tab PO BID 03/01/25 03/19/25 clavulanate 125 mg tablet doxycycline hyclate 100 mg tablet 100 mg PO BID 03/01/25 03/19/25 magnesium oxide 400 mg (241.3 mg 400 mg PO DAILY 03/01/25 03/19/25 magnesium) tablet potassium chloride 10 mEq 10 meq PO DAILY 03/01/25 03/19/25 tablet,extended release prazosin 2 mg capsule 2 mg PO TID 03/01/25 03/19/25 nystatin 100,000 unit/gram topical 1 applic topical BID PRN Other 03/19/25 03/19/25 cream quetiapine 50 mg tablet,extended 50 mg PO DAILY 03/19/25 03/19/25 release 24 hr venlafaxine 150 mg 150 mg PO DAILY 03/19/25 03/19/25 capsule,extended release 24 hr Previous Rx's Medication Instructions Recorded fluticasone propionate 50 1 spray intranasal HS PRN allergy 03/16/23 mcg/actuation nasal symptoms #16 grams spray,suspension (Flonase Allergy Relief) FreeStyle Rosalie 2 [place] (flash #1 ea 05/13/23 glucose scanning reader) blood sugar diagnostic (OneTouch #150 ea 11/22/23 Verio test strips) blood-glucose meter (OneTouch #1 ea 11/22/23 Verio Reflect Meter) insulin syringe-needle U-100 1 mL #300 ea 11/22/23 30 gauge x 1/2" (BD Insulin Syringe Ultra-Fine) lancets 33 gauge (JuicyCanvasTouch Delica #150 ea 11/22/23 Plus Lancet) albuterol sulfate 90 mcg/actuation 2 inh inhalation Q6H PRN shortness 02/24/24 aerosol inhaler (Ventolin HFA) of breath or wheezing #6.7 grams FreeStyle Rosalie 2 Sensor (flash #6 ea 05/02/24 glucose sensor) ipratropium 0.5 mg-albuterol 3 mg 3 ml inhalation QID PRN wheezing 07/31/24 (2.5 mg base)/3 mL nebulization #90 mL soln nebulizers (Compact Compressor #1 ea 07/31/24 Nebulizer) Botox 200 unit injection See Rx Instructions IM .COMPLEX #1 09/18/24 (onabotulinumtoxinA) ea cholecalciferol (vitamin D3) 50 50 mcg PO QPM #90 caps 09/19/24 mcg (2,000 unit) capsule rosuvastatin 20 mg tablet 20 mg PO QAM #90 tabs 09/19/24 pantoprazole 40 mg tablet,delayed 40 mg PO BID #60 tabs 09/21/24 release pen needle, diabetic 32 gauge x #100 ea 10/23/24 5/32" (BD Vy 2nd Gen Pen Needle) bumetanide 1 mg tablet 1 mg PO QAM #30 tabs 10/26/24 vitamin B complex (Vitamins B 1 cap PO QAM #30 caps 10/26/24 Complex capsule) tirzepatide 2.5 mg/0.5 mL 2.5 mg (0.5 mL) subcut Q7D #2 mL 11/22/24 subcutaneous pen injector (Unruly) levetiracetam 1,000 mg tablet 1,000 mg PO Q12H #60 tabs 11/26/24 aspirin 81 mg tablet,delayed 81 mg PO QAM #90 tabs 11/27/24 release desmopressin 0.2 mg tablet 0.4 mg (2 x 0.2 mg) PO BID #120 11/30/24 tabs metoprolol succinate 25 mg 25 mg PO HS #90 tabs 11/30/24 tablet,extended release 24 hr somatropin 5 mg/1.5 mL (3.3 mg/mL) 0.3 mg (0.09 mL) subcut QPM #2 11/30/24 subcutaneous pen injector syringes (Norditropin FlexPro) budesonide 0.5 mg/2 mL suspension 0.5 mg (2 mL) inhalation DAILY #60 12/04/24 for nebulization mL lisinopril 40 mg tablet 40 mg PO DAILY #90 tabs 12/06/24 divalproex 500 mg tablet,delayed 1,000 mg (2 x 500 mg) PO DAILY #60 12/14/24 release tabs lacosamide 150 mg tablet 150 mg PO BID #60 tabs 12/26/24 famotidine 20 mg tablet (Acid 20 mg PO DAILY 6 weeks #42 tabs 01/11/25 Ring Making Machine Operator (famotidine)) hydrocortisone 10 mg tablet 10 mg PO UD #135 tabs 01/25/25 levothyroxine 200 mcg tablet 200 mcg PO QAM #30 tabs 02/25/25 metformin 1,000 mg tablet 1,000 mg PO BID #180 tabs 02/26/25 rimegepant 75 mg disintegrating 75 mg PO DAILY PRN Migraine 02/28/25 tablet (Nurtec ODT) Headache #16 tabs testosterone 2 pump topical PM #75 grams 03/18/25 Results & Data (ED) Vital Signs Vital Signs - 24 hr 03/19/25 11:53 03/19/25 12:00 03/19/25 12:10 Temperature 36.5 C Temperature Source Temporal Artery Scan Pulse Rate 123 H 116 H Pulse Rate [Apical] 107 H Pulse Rhythm Regular Pulse Strength Normal Respiratory Rate 18 20 Respiratory Effort / Characteristics Non-Labored Spontaneous Non-Labored Spontaneous Respiratory Depth Normal Normal Respiratory Pattern Regular Blood Pressure 140/74 Blood Pressure [Right Arm] 139/91 Blood Pressure Mean 96 Blood Pressure Mean [Right Arm] 107 Blood Pressure Position Sitting Blood Pressure Position [Right Arm] Sitting Pulse Oximetry 96 96 Oxygen Delivery Method Nasal Cannula Room Air Oxygen Flow Rate 4 Fraction of Inspired Oxygen SaO2/FiO2 Ratio Sepsis Recent Fever Within 48 Hours No Sepsis New/Unexplained Change in Mental Status N/A Sepsis Action Taken by Nursing No Action Required 03/19/25 12:11 03/19/25 13:06 03/19/25 13:53 Temperature Temperature Source Pulse Rate Pulse Rate [Apical] 111 H Pulse Rhythm Pulse Strength Respiratory Rate 20 26 H Respiratory Effort / Characteristics Non-Labored Spontaneous Non-Labored Spontaneous Respiratory Depth Normal Respiratory Pattern Regular Blood Pressure Blood Pressure [Right Arm] 136/78 Blood Pressure Mean Blood Pressure Mean [Right Arm] 97 Blood Pressure Position Blood Pressure Position [Right Arm] Sitting Pulse Oximetry 97 95 96 Oxygen Delivery Method Nasal Cannula Nasal Cannula Nasal Cannula Oxygen Flow Rate 4 4 4 Fraction of Inspired Oxygen SaO2/FiO2 Ratio Sepsis Recent Fever Within 48 Hours Sepsis New/Unexplained Change in Mental Status Sepsis Action Taken by Nursing 03/19/25 14:50 03/19/25 14:50 Temperature Temperature Source Pulse Rate 99 H Pulse Rate [Apical] Pulse Rhythm Pulse Strength Respiratory Rate 20 Respiratory Effort / Characteristics Non-Labored Spontaneous Respiratory Depth Normal Respiratory Pattern Regular Blood Pressure Blood Pressure [Right Arm] Blood Pressure Mean Blood Pressure Mean [Right Arm] Blood Pressure Position Blood Pressure Position [Right Arm] Pulse Oximetry 97 99 Oxygen Delivery Method BiPAP Oxygen Flow Rate Fraction of Inspired Oxygen 36 36 SaO2/FiO2 Ratio 269 Sepsis Recent Fever Within 48 Hours Sepsis New/Unexplained Change in Mental Status Sepsis Action Taken by Nursing Laboratory Data Attestation: I reviewed the patient's lab results. 03/22/25 06:38 03/22/25 06:38 Lab Results 03/19/25 03/19/25 03/19/25 Range/Units 12:19 12:22 12:45 WBC 18.51 H (4.8-10.8) K/ul RBC 4.43 L (4.70-6.10) M/uL Hgb 13.1 L (14.0-18.0) g/dl Hct 38.2 L (42.0-52.0) % MCV 86.2 (80.0-100.0) fL MCH 29.6 (25.0-34.0) pg MCHC 34.3 (32.0-36.0) g/dL RDW Std Deviation 46.2 (36.4-46.3) fL RDW Coeff of Yanira 14.6 H (11.5-14.5) % Plt Count 191 (130-400) K/uL MPV 8.7 L (9.4-12.4) fL Immature Gran % (Auto) 2.3 % Neut % (Auto) 84.9 % Lymph % (Auto) 7.8 % Talbot % (Auto) 4.9 % Eos % (Auto) 0.0 % Baso % (Auto) 0.1 % Neut # (Auto) 15.71 H (1.40-6.50) K/uL Lymph # (Auto) 1.45 (1.20-3.40) K/uL Talbot # (Auto) 0.90 H (0.11-0.59) K/uL Eos # (Auto) 0.00 (0.00-0.50) K/uL Baso # (Auto) 0.02 (0.00-0.20) K/uL Immature Gran # (Auto) 0.43 H (0.01-0.20) K/uL PT 10.5 (9.0-12.0) Seconds INR 1.0 (0.9-1.1) VBG pH (7.36-7.41) VBG pCO2 (38-50) mmHg VBG pO2 mmHg VBG HCO3 mmol/L VBG O2 Saturation % VBG Base Excess mEq/L Sodium 138 (136-145) mmol/L Potassium 4.0 (3.5-5.1) mmol/L Chloride 100 (98-107) mmol/L Carbon Dioxide 25 (21-32) mmol/L Anion Gap 13 H (3-11) BUN 13 (6-23) mg/dl Creatinine 0.81 (0.6-1.4) mg/dl Est Cr Clr Drug Dosing 130.1 ml/min eGFR 103.48 BUN/Creatinine Ratio 16.0 (10-20) Glucose 229 H (70-99(Fasting)) mg/dl Lactate 7.2 H* (0.4-2.0) mmol/L Calcium 9.3 (8.6-10.3) mg/dl Magnesium 1.3 L (1.7-2.4) mg/dl Total Bilirubin 0.4 (0.2-1.0) mg/dl AST 12 L (13-39) U/L ALT 25 (7-52) U/L Alkaline Phosphatase 54 (34-104) U/L Troponin I High Sens 5.9 (0-20) pg/ml B-Natriuretic Peptide 124 H (0-100) pg/ml Total Protein 6.8 (6.0-8.3) gm/dl Albumin 4.4 (3.4-5.0) gm/dl Globulin 2.4 L (2.5-4.0) gm/dl Albumin/Globulin Ratio 1.8 (0.9-2) Lipase 38 (11-82) U/L Procalcitonin < 0.02 (0-0.5) ng/ml Random Cortisol 10.86 mcg/dl Urine Color Urine Appearance (Clear) Urine pH (4.5-7.5) Ur Specific Spencer (1.000-1.030) Urine Protein (Negative) Urine Glucose (UA) (Negative) Urine Ketones (Negative) Urine Blood (Negative) Urine Nitrite (Negative) Urine Bilirubin (Negative) Urine Urobilinogen (Negative) Ur Leukocyte Esterase (Negative) Urine WBC (Auto) (0-5) /hpf Urine RBC (Auto) (0-2) /hpf U Hyaline Cast (Auto) (0-2) /lpf U Epithel Cells (Auto) (0-2) /hpf Urine Bacteria (Auto) (None Seen) Adenovirus (PCR) Not Detected (NotDetected) B. pertussis DNA (PCR) Not Detected (NotDetected) B.parapertussis DNA PCR Not Detected (NotDetected) C. pneumoniae DNA (PCR) Not Detected (NotDetected) Coronavirus OC43 (PCR) Not Detected (NotDetected) Coronavirus HKU1 (PCR) Not Detected (NotDetected) Coronavirus 229E (PCR) Not Detected (NotDetected) SARS-CoV-2 (PCR) Not Detected (NotDetected) Coronavirus NL63 (PCR) Not Detected (NotDetected) Human Metapneumovir PCR Not Detected (NotDetected) Influenza Type A (PCR) Not Detected (NotDetected) Influenza Type B (PCR) Not Detected (NotDetected) M. pneumoniae (PCR) Not Detected (NotDetected) Parainfluenza 1 (PCR) Not Detected (NotDetected) Parainfluenza 2 (PCR) Not Detected (NotDetected) Parainfluenza 3 (PCR) Not Detected (NotDetected) Parainfluenza 4 (PCR) Not Detected (NotDetected) RSV (PCR) Not Detected (NotDetected) Entero/Rhino (PCR) Not Detected (NotDetected) 03/19/25 03/19/25 Range/Units 13:42 14:48 WBC (4.8-10.8) K/ul RBC (4.70-6.10) M/uL Hgb (14.0-18.0) g/dl Hct (42.0-52.0) % MCV (80.0-100.0) fL MCH (25.0-34.0) pg MCHC (32.0-36.0) g/dL RDW Std Deviation (36.4-46.3) fL RDW Coeff of Yanira (11.5-14.5) % Plt Count (130-400) K/uL MPV (9.4-12.4) fL Immature Gran % (Auto) % Neut % (Auto) % Lymph % (Auto) % Talbot % (Auto) % Eos % (Auto) % Baso % (Auto) % Neut # (Auto) (1.40-6.50) K/uL Lymph # (Auto) (1.20-3.40) K/uL Talbot # (Auto) (0.11-0.59) K/uL Eos # (Auto) (0.00-0.50) K/uL Baso # (Auto) (0.00-0.20) K/uL Immature Gran # (Auto) (0.01-0.20) K/uL PT (9.0-12.0) Seconds INR (0.9-1.1) VBG pH 7.44 H (7.36-7.41) VBG pCO2 40 (38-50) mmHg VBG pO2 40 mmHg VBG HCO3 27 mmol/L VBG O2 Saturation 68.0 % VBG Base Excess 2.8 mEq/L Sodium (136-145) mmol/L Potassium (3.5-5.1) mmol/L Chloride (98-107) mmol/L Carbon Dioxide (21-32) mmol/L Anion Gap (3-11) BUN (6-23) mg/dl Creatinine (0.6-1.4) mg/dl Est Cr Clr Drug Dosing ml/min eGFR BUN/Creatinine Ratio (10-20) Glucose (70-99(Fasting)) mg/dl Lactate 5.9 H* (0.4-2.0) mmol/L Calcium (8.6-10.3) mg/dl Magnesium (1.7-2.4) mg/dl Total Bilirubin (0.2-1.0) mg/dl AST (13-39) U/L ALT (7-52) U/L Alkaline Phosphatase (34-104) U/L Troponin I High Sens (0-20) pg/ml B-Natriuretic Peptide (0-100) pg/ml Total Protein (6.0-8.3) gm/dl Albumin (3.4-5.0) gm/dl Globulin (2.5-4.0) gm/dl Albumin/Globulin Ratio (0.9-2) Lipase (11-82) U/L Procalcitonin (0-0.5) ng/ml Random Cortisol mcg/dl Urine Color Yellow Urine Appearance Clear (Clear) Urine pH 5.5 (4.5-7.5) Ur Specific Spencer 1.031 H (1.000-1.030) Urine Protein 1+ H (Negative) Urine Glucose (UA) 1+ H (Negative) Urine Ketones 3+ H (Negative) Urine Blood 3+ H (Negative) Urine Nitrite Negative (Negative) Urine Bilirubin Negative (Negative) Urine Urobilinogen Negative (Negative) Ur Leukocyte Esterase Trace H (Negative) Urine WBC (Auto) 11-20 H (0-5) /hpf Urine RBC (Auto) >20 H (0-2) /hpf U Hyaline Cast (Auto) 0-2 (0-2) /lpf U Epithel Cells (Auto) 0-2 (0-2) /hpf Urine Bacteria (Auto) None Seen (None Seen) Adenovirus (PCR) (NotDetected) B. pertussis DNA (PCR) (NotDetected) B.parapertussis DNA PCR (NotDetected) C. pneumoniae DNA (PCR) (NotDetected) Coronavirus OC43 (PCR) (NotDetected) Coronavirus HKU1 (PCR) (NotDetected) Coronavirus 229E (PCR) (NotDetected) SARS-CoV-2 (PCR) (NotDetected) Coronavirus NL63 (PCR) (NotDetected) Human Metapneumovir PCR (NotDetected) Influenza Type A (PCR) (NotDetected) Influenza Type B (PCR) (NotDetected) M. pneumoniae (PCR) (NotDetected) Parainfluenza 1 (PCR) (NotDetected) Parainfluenza 2 (PCR) (NotDetected) Parainfluenza 3 (PCR) (NotDetected) Parainfluenza 4 (PCR) (NotDetected) RSV (PCR) (NotDetected) Entero/Rhino (PCR) (NotDetected) Administered Medications Hydrocodone Bitart/Acetaminophen (Hydrocodone/Acetaminophen 7.5/325mg Tab) 1 tab PO Q6H [facility] Stop: 04/02/25 17:59 Last Admin: 03/22/25 11:58 Dose: 1 tab Documented By: JOSE ALFREDO Admin: 03/22/25 05:59 Dose: 1 tab Documented By: [facility] Admin: 03/22/25 00:16 Dose: 1 tab Documented By: [facility] Admin: 03/21/25 17:54 Dose: 1 tab Documented By: JOSE ALFREDO Admin: 03/21/25 12:17 Dose: 1 tab Documented By: JOSE ALFREDO Admin: 03/21/25 05:36 Dose: 1 tab Documented By: [facility] Admin: 03/21/25 01:02 Dose: 1 tab Documented By: Admin: 03/20/25 17:26 Dose: 1 tab Documented By: JOSE ALFREDO Admin: 03/20/25 12:08 Dose: 1 tab Documented By: JOSE ALFREDO Admin: 03/20/25 06:10 Dose: 1 tab Documented By: [facility] Admin: 03/20/25 00:58 Dose: 1 tab Documented By: [facility] Admin: 03/19/25 17:55 Dose: 1 tab Documented By: KEG Acetylcysteine (Acetylcysteine 20% Inhal Soln 4ml Dispensed By Resp.) 5 ml INH BIDR [facility] Stop: 04/19/25 18:59 Last Admin: 03/22/25 07:01 Dose: 5 ml Documented By: Admin: 03/21/25 19:11 Dose: 5 ml Documented By: Admin: 03/21/25 07:01 Dose: 5 ml Documented By: Admin: 03/20/25 19:57 Dose: 5 ml Documented By: HARRY Albuterol (Albut/Ipratrop 3mg/0.5mg Neb 3 Ml Vial) 3 ml INH QIDR [facility]; Protocol Stop: 04/18/25 18:59 Last Admin: 03/22/25 14:19 Dose: 3 ml Documented By: Admin: 03/22/25 10:17 Dose: 3 ml Documented By: Admin: 03/22/25 07:46 Dose: Not Given Documented By: Admin: 03/21/25 19:11 Dose: Not Given Documented By: Admin: 03/21/25 15:36 Dose: 3 ml Documented By: Admin: 03/21/25 10:52 Dose: 3 ml Documented By: Admin: 03/21/25 07:07 Dose: Not Given Documented By: Admin: 03/20/25 19:54 Dose: Not Given Documented By: Admin: 03/20/25 14:51 Dose: 3 ml Documented By: Admin: 03/20/25 10:36 Dose: 3 ml Documented By: Admin: 03/20/25 07:00 Dose: Not Given Documented By: Admin: 03/19/25 21:22 Dose: Not Given Documented By: MIGUEL Aripiprazole (Aripiprazole 5 Mg Tab) 5 mg PO DAILY [facility] Stop: 04/19/25 08:59 Last Admin: 03/22/25 08:29 Dose: 5 mg Documented By: JOSE ALFREDO Admin: 03/21/25 08:48 Dose: 5 mg Documented By: JOSE ALFREDO Admin: 03/20/25 08:43 Dose: 5 mg Documented By: JOSE ALFREDO Aspirin (Aspirin 81 Mg Ectab) 81 mg PO QAM [facility] Stop: 04/19/25 08:59 Last Admin: 03/22/25 08:29 Dose: 81 mg Documented By: JOSE ALFREDO Admin: 03/21/25 08:48 Dose: 81 mg Documented By: JOSE ALFREDO Admin: 03/20/25 08:43 Dose: 81 mg Documented By: JOSE ALFREDO Bisacodyl (Bisacodyl 5 Mg Tabec) 10 mg PO BID [facility] Stop: 04/20/25 20:59 Last Admin: 03/22/25 08:28 Dose: 10 mg Documented By: JOSE ALFREDO Admin: 03/21/25 21:41 Dose: 10 mg Documented By: GARDENIA Budesonide (Budesonide 0.5 Mg/2 Ml Vial (Pulmicort)) 0.5 mg NEB BIDR [facility] Stop: 04/18/25 18:59 Last Admin: 03/22/25 07:01 Dose: 0.5 mg Documented By: Admin: 03/21/25 19:11 Dose: 0.5 mg Documented By: Admin: 03/21/25 07:00 Dose: 0.5 mg Documented By: Admin: 03/20/25 19:54 Dose: 0.5 mg Documented By: Admin: 03/20/25 07:00 Dose: 0.5 mg Documented By: Admin: 03/19/25 21:22 Dose: Not Given Documented By: MIGUEL Clopidogrel Bisulfate (Clopidogrel Bisulfate 75 Mg Tab) 75 mg PO DAILY [facility] Stop: 04/19/25 08:59 Last Admin: 03/22/25 08:29 Dose: 75 mg Documented By: JOSE ALFREDO Admin: 03/21/25 08:48 Dose: 75 mg Documented By: JOSE ALFREDO Admin: 03/20/25 08:44 Dose: 75 mg Documented By: JOSE ALFREDO Desmopressin Acetate (Desmopressin Acetate 0.1 Mg Tab) 0.4 mg PO BID [facility] Stop: 04/18/25 20:59 Last Admin: 03/22/25 08:28 Dose: 0.4 mg Documented By: JOSE ALFREDO Admin: 03/21/25 21:41 Dose: 0.4 mg Documented By: Admin: 03/21/25 08:47 Dose: 0.4 mg Documented By: JOSE ALFREDO Admin: 03/20/25 21:27 Dose: 0.4 mg Documented By: Admin: 03/20/25 08:41 Dose: 0.4 mg Documented By: JOSE ALFREDO Admin: 03/19/25 20:58 Dose: 0.4 mg Documented By: GARDENIA Divalproex Sodium (Divalproex Delay Release 500 Mg Tab) 1,000 mg PO DAILY [facility] Stop: 04/19/25 08:59 Last Admin: 03/22/25 08:28 Dose: 1,000 mg Documented By: JOSE ALFREDO Admin: 03/21/25 08:46 Dose: 1,000 mg Documented By: JOSE ALFREDO Admin: 03/20/25 08:41 Dose: 1,000 mg Documented By: JOSE ALFREDO Doxycycline Hyclate (Doxycycline Hyclate 100 Mg Cap) 100 mg PO BID [facility]; Protocol Stop: 03/24/25 20:59 Last Admin: 03/22/25 08:30 Dose: 100 mg Documented By: JOSE ALFREDO Admin: 03/21/25 21:42 Dose: 100 mg Documented By: Admin: 03/21/25 08:47 Dose: 100 mg Documented By: JOSE ALFREDO Admin: 03/20/25 21:28 Dose: 100 mg Documented By: Admin: 03/20/25 08:40 Dose: 100 mg Documented By: JOSE ALFREDO Admin: 03/19/25 20:59 Dose: 100 mg Documented By: GARDENIA Duloxetine HCl (Duloxetine Hcl 60 Mg Cap) 60 mg PO QAM [facility] Stop: 04/19/25 08:59 Last Admin: 03/22/25 08:29 Dose: 60 mg Documented By: JOSE ALFREDO Admin: 03/21/25 08:47 Dose: 60 mg Documented By: JOSE ALFREDO Admin: 03/20/25 08:42 Dose: 60 mg Documented By: JOSE ALFREDO Duloxetine HCl (Duloxetine Hcl 30 Mg Cap) 30 mg PO QPM [facility] Stop: 04/18/25 20:59 Last Admin: 03/21/25 21:43 Dose: 30 mg Documented By: Admin: 03/20/25 21:30 Dose: 30 mg Documented By: Admin: 03/19/25 20:57 Dose: 30 mg Documented By: GARDENIA Enoxaparin Sodium (Enoxaparin Inj 40 Mg/0.4 Ml Syr) 40 mg SQ Q24H [facility] Stop: 04/19/25 08:59 Last Admin: 03/22/25 08:30 Dose: 40 mg Documented By: JOSE ALFREDO Admin: 03/21/25 08:47 Dose: 40 mg Documented By: JOSE ALFREDO Admin: 03/20/25 08:45 Dose: 40 mg Documented By: JOSE ALFREDO Famotidine (Famotidine 20 Mg Tab) 20 mg PO DAILY [facility] Stop: 04/19/25 08:59 Last Admin: 03/22/25 08:28 Dose: 20 mg Documented By: JOSE ALFREDO Admin: 03/21/25 08:45 Dose: 20 mg Documented By: JOSE ALFREDO Admin: 03/20/25 08:34 Dose: 20 mg Documented By: JOSE ALFREDO Finasteride (Finasteride 5 Mg Tab) 5 mg PO QAM [facility] Stop: 04/19/25 08:59 Last Admin: 03/22/25 08:28 Dose: 5 mg Documented By: JOSE ALFREDO Admin: 03/21/25 08:47 Dose: 5 mg Documented By: JOSE ALFREDO Admin: 03/20/25 08:41 Dose: 5 mg Documented By: JOSE ALFREDO Formoterol Fumarate (Formoterol 20 Mcg/2 Ml Vial) 20 mcg NEB BIDR [facility] Stop: 04/18/25 18:59 Last Admin: 03/22/25 07:01 Dose: 20 mcg Documented By: Admin: 03/21/25 19:11 Dose: 20 mcg Documented By: Admin: 03/21/25 07:01 Dose: 20 mcg Documented By: Admin: 03/20/25 19:54 Dose: 20 mcg Documented By: Admin: 03/20/25 07:00 Dose: 20 mcg Documented By: Admin: 03/19/25 21:23 Dose: Not Given Documented By: MIGUEL Methylprednisolone 40 mg/ (Syringe) 0.64 mls @ 1.5 mls/min IV BID [facility] Stop: 04/20/25 20:59 Last Admin: 03/22/25 08:31 Dose: 1.5 mls/min Documented By: JOSE ALFREDO Admin: 03/21/25 21:42 Dose: 1.5 mls/min Documented By: GARDENIA Insulin Aspart (Insulin Aspart Per Unit Charge) 0 units SC ACHS [facility] Stop: 04/18/25 17:44 Last Admin: 03/22/25 11:57 Dose: 7 units Documented By: JOSE ALFREDO Co-signed By: ANNA Admin: 03/22/25 08:27 Dose: 5 units Documented By: JOSE ALFREDO Co-signed By: ANNA Admin: 03/21/25 21:45 Dose: 2 units Documented By: GARDENIA Co-signed By: KALEN Admin: 03/21/25 17:09 Dose: 6 units Documented By: JOSE ALFREDO Co-signed By: SELVIN Admin: 03/21/25 12:02 Dose: 7 units Documented By: JOSE ALFREDO Co-signed By: KETURAH Admin: 03/21/25 08:46 Dose: 7 units Documented By: JOSE ALFREDO Co-signed By: KETURAH Admin: 03/20/25 21:25 Dose: 1 units Documented By: GARDENIA Co-signed By: MILTON Admin: 03/20/25 16:45 Dose: 7 units Documented By: JOSE ALFREDO Co-signed By: Admin: 03/20/25 12:08 Dose: 5 units Documented By: JOSE ALFREDO Co-signed By: Admin: 03/20/25 08:34 Dose: 8 units Documented By: JOSE ALFREDO Co-signed By: SELVIN Admin: 03/19/25 21:14 Dose: 2 units Documented By: GARDENIA Co-signed By: MICHELLE Admin: 03/19/25 17:55 Dose: 1 units Documented By: JOSE ALFREDO Co-signed By: MELIDA Insulin Glargine (Lantus Per Unit Charge) 15 units SC BID [facility] Stop: 04/18/25 20:59 Last Admin: 03/22/25 08:27 Dose: 15 units Documented By: JOSE ALFREDO Co-signed By: ANNA Admin: 03/21/25 21:46 Dose: 15 units Documented By: GARDENIA Co-signed By: KALEN Admin: 03/21/25 08:45 Dose: 15 units Documented By: JOSE ALFREDO Co-signed By: KETURAH Admin: 03/20/25 21:24 Dose: 15 units Documented By: GARDENIA Co-signed By: MILTON Admin: 03/20/25 08:36 Dose: 15 units Documented By: JOSE ALFREDO Co-signed By: SELVIN Admin: 03/19/25 21:13 Dose: 15 units Documented By: GARDENIA Co-signed By: MICHELLE Lacosamide (Lacosamide 50 Mg Tablet) 150 mg PO BID [facility] Stop: 04/18/25 20:59 Last Admin: 03/22/25 08:28 Dose: 150 mg Documented By: JOSE ALFREDO Admin: 03/21/25 21:41 Dose: 150 mg Documented By: Admin: 03/21/25 09:05 Dose: 150 mg Documented By: JOSE ALFREDO Admin: 03/20/25 21:25 Dose: 150 mg Documented By: Admin: 03/20/25 09:31 Dose: 150 mg Documented By: JOSE ALFREDO Admin: 03/19/25 21:13 Dose: 150 mg Documented By: GARDENIA Levetiracetam (Levetiracetam 500 Mg Tab) 1,000 mg PO BID [facility] Stop: 04/18/25 20:59 Last Admin: 03/22/25 08:30 Dose: 1,000 mg Documented By: JOSE ALFREDO Admin: 03/21/25 21:42 Dose: 1,000 mg Documented By: Admin: 03/21/25 08:48 Dose: 1,000 mg Documented By: JOSE ALFREDO Admin: 03/20/25 21:29 Dose: 1,000 mg Documented By: Admin: 03/20/25 08:43 Dose: 1,000 mg Documented By: JOSE ALFREDO Admin: 03/19/25 20:57 Dose: 1,000 mg Documented By: GARDENIA Levothyroxine Sodium (Levothyroxine Sodium 150 Mcg Tablet) 150 mcg PO DAILYBB [facility] Stop: 04/20/25 06:29 Last Admin: 03/22/25 05:59 Dose: 150 mcg Documented By: Admin: 03/21/25 05:36 Dose: 150 mcg Documented By: GARDENIA Lisinopril (Lisinopril 40 Mg Tab) 40 mg PO DAILY [facility] Stop: 04/19/25 08:59 Last Admin: 03/22/25 08:30 Dose: 40 mg Documented By: JOSE ALFREDO Admin: 03/21/25 08:48 Dose: 40 mg Documented By: JOSE ALFREDO Admin: 03/20/25 09:30 Dose: 40 mg Documented By: JOSE ALFREDO Baxley Carbonate (Baxley Carbonate 300 Mg Tab) 300 mg PO BID [facility] Stop: 04/18/25 20:59 Last Admin: 03/22/25 08:30 Dose: 300 mg Documented By: JOSE ALFREDO Admin: 03/21/25 21:41 Dose: 300 mg Documented By: Admin: 03/21/25 08:49 Dose: 300 mg Documented By: JOSE ALFREDO Admin: 03/20/25 21:30 Dose: 300 mg Documented By: Admin: 03/20/25 08:40 Dose: 300 mg Documented By: JOSE ALFREDO Admin: 03/19/25 20:59 Dose: 300 mg Documented By: GARDENIA Magnesium Oxide (Magnesium Oxide 400 Mg Tab) 400 mg PO DAILY [facility] Stop: 04/19/25 08:59 Last Admin: 03/22/25 08:29 Dose: 400 mg Documented By: JOSE ALFREDO Admin: 03/21/25 08:47 Dose: 400 mg Documented By: JOSE ALFREDO Admin: 03/20/25 08:42 Dose: 400 mg Documented By: JOSE ALFREDO Metoprolol Succinate (Metoprolol Succ 25mg Ext Rel Tab) 25 mg PO [facility] Stop: 04/18/25 20:59 Last Admin: 03/21/25 21:43 Dose: 25 mg Documented By: [facility] Admin: 03/20/25 21:30 Dose: 25 mg Documented By: [facility] Admin: 03/19/25 20:57 Dose: 25 mg Documented By: GARDENIA Mirtazapine (Mirtazapine Tab 15 Mg Tab) 45 mg PO [facility] Stop: 04/18/25 20:59 Last Admin: 03/21/25 21:42 Dose: 45 mg Documented By: Admin: 03/20/25 21:31 Dose: 45 mg Documented By: Admin: 03/19/25 20:58 Dose: 45 mg Documented By: GARDENIA Miscellaneous (Somatropin (Norditropin Flexpro)*Order Awaiting Action) 1 each N/A QS [facility] Stop: 04/19/25 17:59 Last Admin: 03/22/25 08:43 Dose: Not Given Documented By: JOSE ALFREDO Admin: 03/21/25 23:03 Dose: Not Given Documented By: Admin: 03/21/25 15:19 Dose: Not Given Documented By: JOSE ALFREDO Admin: 03/21/25 09:16 Dose: Not Given Documented By: Admin: 03/20/25 17:11 Dose: Not Given Documented By: JOSE ALFREDO Miscellaneous (Testosterone 1.62% Gel*Order Awaiting Action) 1 each N/A QS [facility] Stop: 04/18/25 19:59 Last Admin: 03/22/25 08:43 Dose: Not Given Documented By: JOSE ALFREDO Admin: 03/21/25 23:03 Dose: Not Given Documented By: Admin: 03/21/25 15:19 Dose: Not Given Documented By: JOSE ALFREDO Admin: 03/21/25 09:16 Dose: Not Given Documented By: JOSE ALFREDO Admin: 03/21/25 00:33 Dose: Not Given Documented By: Admin: 03/20/25 15:26 Dose: Not Given Documented By: JOSE ALFREDO Admin: 03/20/25 09:05 Dose: Not Given Documented By: JOSE ALFREDO Admin: 03/19/25 21:05 Dose: Not Given Documented By: GARDENIA Pantoprazole Sodium (Pantoprazole 40 Mg Tab) 40 mg PO BID [facility] Stop: 04/18/25 20:59 Last Admin: 03/22/25 08:29 Dose: 40 mg Documented By: JOSE ALFREDO Admin: 03/21/25 21:42 Dose: 40 mg Documented By: Admin: 03/21/25 08:47 Dose: 40 mg Documented By: JOSE ALFREDO Admin: 03/20/25 21:31 Dose: 40 mg Documented By: Admin: 03/20/25 08:43 Dose: 40 mg Documented By: JOSE ALFREDO Admin: 03/19/25 20:56 Dose: 40 mg Documented By: GARDENIA Potassium Chloride (Potassium Chloride 10 Meq Tabcr) 10 meq PO DAILY [facility] Stop: 04/19/25 08:59 Last Admin: 03/22/25 08:31 Dose: 10 meq Documented By: JOSE ALFREDO Admin: 03/21/25 09:05 Dose: 10 meq Documented By: JOSE ALFREDO Admin: 03/20/25 08:34 Dose: 10 meq Documented By: JOSE ALFREDO Prazosin HCl (Prazosin Hcl 1 Mg Cap) 2 mg PO TID [facility] Stop: 04/18/25 20:59 Last Admin: 03/22/25 08:29 Dose: 2 mg Documented By: JOSE ALFREDO Admin: 03/21/25 21:42 Dose: 2 mg Documented By: Admin: 03/21/25 13:58 Dose: 2 mg Documented By: JOSE ALFREDO Admin: 03/21/25 08:48 Dose: 2 mg Documented By: JOSE ALFREDO Admin: 03/20/25 21:29 Dose: 2 mg Documented By: Admin: 03/20/25 13:34 Dose: 2 mg Documented By: JOSE ALFREDO Admin: 03/20/25 08:40 Dose: 2 mg Documented By: JOSE ALFREDO Admin: 03/19/25 20:59 Dose: 2 mg Documented By: GARDENIA Propranolol HCl (Propranolol Hcl 60 Mg La Cap) [facility]: 04/19/25 08:59 Last Admin: 03/22/25 08:29 Dose: 120 mg Documented By: JOSE ALFREDO Admin: 03/21/25 08:48 Dose: 120 mg Documented By: JOSE ALFREDO Admin: 03/20/25 08:37 Dose: 120 mg Documented By: JOSE ALFREDO Quetiapine Fumarate (Quetiapine Fumarate 50 Mg Tabcr) 50 mg PO DAILY [facility] Stop: 04/19/25 08:59 Last Admin: 03/22/25 08:28 Dose: 50 mg Documented By: JOSE ALFREDO Admin: 03/21/25 08:47 Dose: 50 mg Documented By: JOSE ALFREDO Admin: 03/20/25 08:42 Dose: 50 mg Documented By: JOSE ALFREDO Rosuvastatin Calcium (Rosuvastatin Calcium 20 Mg Tab) [facility] [place] Stop: 04/19/25 08:59 Last Admin: 03/22/25 08:29 Dose: 20 mg Documented By: JOSE ALFREDO Admin: 03/21/25 08:47 Dose: 20 mg Documented By: JOSE ALFREDO Admin: 03/20/25 08:44 Dose: 20 mg Documented By: JOSE ALFREDO Sodium Chloride (Sodium Chlor 7% 4 Ml Neb) 4 ml NEB BIDR [facility] Stop: 04/18/25 18:59 Last Admin: 03/22/25 07:01 Dose: 4 ml Documented By: Admin: 03/21/25 19:11 Dose: 4 ml Documented By: EMAshanti Admin: 03/21/25 07:01 Dose: 4 ml Documented By: Admin: 03/20/25 19:54 Dose: 4 ml Documented By: Admin: 03/20/25 07:00 Dose: 4 ml Documented By: Admin: 03/19/25 21:23 Dose: Not Given Documented By: MIGUEL Trazodone HCl (Trazodone Hcl 100 Mg Tab) 100 mg PO HS [facility] Stop: 04/18/25 20:59 Last Admin: 03/21/25 21:43 Dose: 100 mg Documented By: Admin: 03/20/25 21:31 Dose: 100 mg Documented By: Admin: 03/19/25 20:56 Dose: 100 mg Documented By: GARDENIA Umeclidinium [place] (Umeclidinium [place] 62.5mcg/Blister 7 Puffs/Inhaler) 1 puffs INH DAILY [facility] Stop: 04/19/25 08:59 Last Admin: 03/22/25 08:27 Dose: 1 puffs Documented By: JOSE ALFREDO Admin: 03/21/25 08:46 Dose: 1 puffs Documented By: JOSE ALFREDO Admin: 03/20/25 08:36 Dose: 1 puffs Documented By: JOSE ALFREDO Venlafaxine HCl (Venlafaxine Hcl Xr 150 Mg Capxr) 150 mg PO DAILY [facility] Stop: 04/19/25 08:59 Last Admin: 03/22/25 08:29 Dose: 150 mg Documented By: JOSE ALFREDO Admin: 03/21/25 08:48 Dose: 150 mg Documented By: JOSE ALFREDO Admin: 03/20/25 08:42 Dose: 150 mg Documented By: JOSE ALFREDO Vitamin D (Cholecalciferol 25 Mcg (1000 Units) Tab) 50 mcg PO QPM [facility] Stop: 04/18/25 20:59 Last Admin: 03/21/25 21:43 Dose: 50 mcg Documented By: Admin: 03/20/25 21:28 Dose: 50 mcg Documented By: Admin: 03/19/25 20:57 Dose: 50 mcg Documented By: GARDENIA Discontinued Medications Albuterol (Albut/Ipratrop 3mg/0.5mg Neb 3 Ml Vial) 12 ml NEB ONE ONE; Protocol Stop: 03/19/25 12:33 Last Admin: 03/19/25 13:06 Dose: 12 ml Documented By: REMEDIOS Bisacodyl (Bisacodyl 5 Mg Tabec) 10 mg PO BID ONE Stop: 03/21/25 10:58 Last Admin: 03/21/25 12:02 Dose: 10 mg Documented By: JOSE ALFREDO Guaifenesin (Guaifenesin 600 Mg Tabcr) 1,200 mg PO NOW STA Stop: 03/19/25 12:33 Last Admin: 03/19/25 12:49 Dose: 600 mg Documented By: LEONARDO Hydralazine HCl (Hydralazine Hcl 20 Mg/Ml Vial) 5 mg IV NOW ONE Stop: 03/22/25 03:56 Last Admin: 03/22/25 04:25 Dose: 5 mg Documented By: GARDENIA Hydrocortisone Sodium Succinate (Hydrocortisone Sod Succinate 100 Mg/2 Ml Vial) 100 mg IV NOW STA Stop: 03/19/25 12:33 Last Admin: 03/19/25 12:49 Dose: 100 mg Documented By: LEONARDO Sodium Chloride (Nss) 500 mls @ 999 mls/hr IV .Q31M ONE Stop: 03/19/25 13:04 Last Infusion: 03/19/25 13:24 Dose: Infused Documented By: Admin: 03/19/25 12:49 Dose: 999 mls/hr Documented By: LEONARDO Magnesium Sulfate/Dextrose (Magnesium Sulfate / D5w) 1 gm in 100 mls @ 100 mls/hr IV Q1H [facility] Stop: 03/19/25 16:02 Last Infusion: 03/19/25 19:26 Dose: Infused Documented By: Admin: 03/19/25 17:55 Dose: 100 mls/hr Documented By: JOSE ALFREDO Infusion: 03/19/25 17:55 Dose: Infused Documented By: JOSE ALFREDO Admin: 03/19/25 16:57 Dose: 100 mls/hr Documented By: ALBERT Piperacillin Sod/Tazobactam Sod (Zosyn) 4.5 gm in 100 mls @ 200 mls/hr IV NOW ONE; Protocol Stop: 03/19/25 15:07 Last Infusion: 03/19/25 17:37 Dose: Infused Documented By: JOSE ALFREDO Admin: 03/19/25 15:27 Dose: 200 mls/hr Documented By: BLUE Sodium Chloride (Nss) 1,000 mls @ 999 mls/hr IV .Q1H1M ONE Stop: 03/19/25 17:59 Last Infusion: 03/19/25 19:26 Dose: Infused Documented By: Admin: 03/19/25 17:55 Dose: 999 mls/hr Documented By: JOSE ALFREDO Methylprednisolone 40 mg/ (Syringe) 0.64 mls @ 1.5 mls/min IV Q8H [facility] Stop: 04/18/25 17:59 Last Admin: 03/21/25 08:46 Dose: 1.5 mls/min Documented By: JOSE ALFREDO Admin: 03/21/25 01:02 Dose: 1.5 mls/min Documented By: Admin: 03/20/25 16:47 Dose: 1.5 mls/min Documented By: JOSE ALFREDO Admin: 03/20/25 08:39 Dose: 1.5 mls/min Documented By: JOSE ALFREDO Admin: 03/20/25 00:58 Dose: 1.5 mls/min Documented By: Admin: 03/19/25 18:30 Dose: 1.5 mls/min Documented By: JOSE ALFREDO Lactulose (Lactulose Syrup 30 Gm/45 Ml Udp) 30 gm PO NOW STA Stop: 03/22/25 08:33 Last Admin: 03/22/25 10:34 Dose: 30 gm Documented By: JOSE ALFREDO Polyethylene Glycol (Polyethylene (Miralax) 17 Gm Pack) 17 gm PO DAILY [facility] Stop: 04/19/25 08:59 Last Admin: 03/21/25 08:49 Dose: Not Given Documented By: JOSE ALFREDO Admin: 03/20/25 08:44 Dose: 17 gm Documented By: JOSE ALFREDO Imaging Data Radiologist's Impression: Chest X-Ray 03/19/25 12:11 XR chest 1V portable CLINICAL HISTORY: Chest pain, nonspecific COMPARISON STUDY: Chest CT October 24, 2024. Chest radiograph February 04, 2025. FINDINGS: Lung volumes are mildly diminished. There is no pneumothorax or definite pleural effusion. Possible trace left pleural effusion. Cardiomediastinal silhouette is stable. There is mild interstitial thickening. There is no consolidation to suggest pneumonia. Old left clavicular fracture is incidentally noted. IMPRESSION: 1. Cardiomegaly. Interstitial thickening. This may represent pulmonary vascular congestion or an infectious process. No consolidation. 2. Possible trace left pleural effusion. ACT 112: Negative or not required by law. Electronically signed by: Aditya Foley M.D. 03/19/2025 12:[address] 03/19/25 12:33 CT chest diagnostic wo con CT DOSE: 835.35 mGy.cm CLINICAL HISTORY: 54 years-old Male with sob, copd, ?PNA. Acute shortness breath with possible pneumonia TECHNIQUE: Multiaxial CT images of the chest were performed without contrast. A dose lowering technique was utilized adhering to the principles of ALARA. COMPARISON: Chest radiograph of same day, chest CT 10/24/2024 FINDINGS: No thyroid nodule. Mild subcarinal lymphadenopathy is unchanged. Heart is upper limits of normal in size. Left atrial exclusion device. [id number] coronary artery calcifications. No thoracic aortic aneurysm. Trace pleural effusions. Mild linear subsegmental bibasilar atelectasis versus scarring. No definite interstitial pulmonary edema or airspace consolidation typical for pneumonia. Central airways appear patent. No acute upper abdominal abnormality. The liver appears enlarged. Unremarkable soft tissues. No acute fracture is seen. IMPRESSION: 1. Cardiomegaly without definite pulmonary edema or airspace consolidation typical for pneumonia. 2. Unchanged likely benign subcarinal lymphadenopathy. 3. Mild subsegmental bibasilar atelectasis. ACT 112: Negative or not required by law. Electronically signed by: Bean Tolentino M.D. 03/19/2025 1:14 PM Discharge Plan Visit Data Chief Complaint: Cough Stated Complaint: PNEUMONIA ED Provider: Zackery Carbone Discharge Problem: Acute on chronic hypoxic respiratory failure, COPD (chronic obstructive pulmonary disease), Leukocytosis, Chronic adrenal insufficiency, Elevated lactic acid level Patient Disposition: Admitted As Inpatient Condition: Serious Discharge Instructions Interventions: ED Discharge Assessment Last Done: 03/19/25 16:30 Discharge Problem: COPD (chronic obstructive pulmonary disease) Qualifiers: COPD type: COPD with acute lower respiratory infection Qualified Code(s): J44.0 - Chronic obstructive pulmonary disease with (acute) lower respiratory infection Leukocytosis Qualifiers: Leukocytosis type: unspecified Qualified Code(s): D72.829 - Elevated white blood cell count, unspecified
[2025-03-19 12:34] LABS: Basophils # (auto) 0.02 K/uL (0.00-0.20); Basophils % (auto) 0.1 %; Hematocrit (blood only) 38.2 % (42.0-52.0); Hemoglobin 13.1 g/dl (14.0-18.0); Immature Granulocytes # (auto) 0.43 K/uL (0.01-0.20); Immature Granulocytes % (auto) 2.3 %; Lymphocytes # (auto) 1.45 K/uL (1.20-3.40); Lymphocytes % (auto) 7.8 %; Mean Corpuscular Hemoglobin 29.6 pg (25.0-34.0); Mean Corpuscular Hgb Conc 34.3 g/dL (32.0-36.0); Mean Corpuscular Volume 86.2 fL (80.0-100.0); Mean Platelet Volume 8.7 fL (9.4-12.4); Monocytes % (auto) 4.9 %; Neutrophils # (auto) 15.71 K/uL (1.40-6.50); Neutrophils % (auto) 84.9 %; Platelet Count 191 K/uL (130-400); RDW Coefficient of Variation 14.6 % (11.5-14.5); RDW Standard Deviation 46.2 fL (36.4-46.3); Red Blood Count 4.43 M/uL (4.70-6.10); White Blood Count 18.51 K/ul (4.8-10.8)
[2025-03-19 12:46] LABS: Prothrombin Time 10.5 Seconds (9.0-12.0)
[2025-03-19] MEDS: guaiFENesin 600 MG TABCR PO STA (12:49)
[2025-03-19] MEDS: HYDROCORTISONE SOD SUCCINATE 100 MG/2 ML VIAL IV STA (12:49)
[2025-03-19] MEDS: SODIUM CHLORIDE 0.9% 500 ML IV ONE (12:49)
--- NOTE | 2025-03-19 12:51 | XRay Report ---
XR chest 1V portable CLINICAL HISTORY: Chest pain, nonspecific COMPARISON STUDY: Chest CT October 24, 2024. Chest radiograph February 04, 2025. FINDINGS: Lung volumes are mildly diminished. There is no pneumothorax or definite pleural effusion. Possible trace left pleural effusion. Cardiomediastinal silhouette is stable. There is mild interstit ial thickening. There is no consolidation to suggest pneumonia. Old left clavicular fracture is incid entally noted. IMPRESSION: 1. Cardiomegaly. Interstitial thickening. This may represent pulmonary vascular congestion or an infe ctious process. No consolidation. 2. Possible trace left pleural effusion. ACT 112: Negative or not required by law. Electronically signed by: Aditya Foley M.D. 03/19/2025 12:49 PM
[2025-03-19 12:52] LABS: Albumin Level 4.4 gm/dl (3.4-5.0); Bilirubin,Total 0.4 mg/dl (0.2-1.0); Calcium 9.3 mg/dl (8.6-10.3); Magnesium 1.3 mg/dl (1.7-2.4)
[2025-03-19 12:59] LABS: Albumin Globulin Ratio 1.8 (0.9-2); Creatinine Clr Calc Pharmacy 130.1 ml/min; Globulin 2.4 gm/dl (2.5-4.0); Total Protein 6.8 gm/dl (6.0-8.3)
[2025-03-19 13:00] LABS: Troponin I High Sensitivity 5.9 pg/ml (0-20)
[2025-03-19] MEDS: ALBUT/IPRATROP 3MG/0.5MG NEB 3 ML VIAL NEB ONE (13:06)
--- NOTE | 2025-03-19 13:15 | CT Scan Report ---
CT chest diagnostic wo con CT DOSE: 835.35 mGy.cm CLINICAL HISTORY: 54 years-old Male with sob, copd, ?PNA. Acute shortness breath with possible pneum onia TECHNIQUE: Multiaxial CT images of the chest were performed without contrast. A dose lowering techni que was utilized adhering to the principles of ALARA. COMPARISON: Chest radiograph of same day, chest CT 10/24/2024 FINDINGS: No thyroid nodule. Mild subcarinal lymphadenopathy is unchanged. Heart is upper limits of n ormal in size. Left atrial exclusion device. [id number]-[id number] coronary artery calcifications. No thor acic aortic aneurysm. Trace pleural effusions. Mild linear subsegmental bibasilar atelectasis versus scarring. No definite interstitial pulmonary edema or airspace consolidation typical for pneumonia. Central airways appear patent. No acute upper abdominal abnormality. The liver appears enlarged. Unremarkable soft tissues. No acute fracture is seen. IMPRESSION: 1. Cardiomegaly without definite pulmonary edema or airspace consolidation typical for pneumonia. 2. Unchanged likely benign subcarinal lymphadenopathy. 3. Mild subsegmental bibasilar atelectasis. ACT 112: Negative or not required by law. Electronically signed by: Bean Tolentino M.D. 03/19/2025 1:14 PM
[2025-03-19 13:29] LABS: Adenovirus PCR Not Detected (NotDetected); Bordetella parapertussis PCR Not Detected (NotDetected); Bordetella pertussis PCR Not Detected (NotDetected); Chlamydia pneumoniae PCR Not Detected (NotDetected); Coronavirus 229E PCR Not Detected (NotDetected); Coronavirus CoV-2 (COVID19)PCR Not Detected (NotDetected); Coronavirus HKU1 PCR Not Detected (NotDetected); Coronavirus NL63 PCR Not Detected (NotDetected); Coronavirus OC43PCR Not Detected (NotDetected); Human Metapneumovirus PCR Not Detected (NotDetected); Influenza A PCR Not Detected (NotDetected); Influenza B PCR Not Detected (NotDetected); Mycoplasma pneumoniae PCR Not Detected (NotDetected); Parainfluenza Virus 1 PCR Not Detected (NotDetected); Parainfluenza Virus 2 PCR Not Detected (NotDetected); Parainfluenza Virus 3 PCR Not Detected (NotDetected); Parainfluenza Virus 4 PCR Not Detected (NotDetected); Respiratory Syncytial VirusPCR Not Detected (NotDetected); Rhinovirus/Enterovirus PCR Not Detected (NotDetected)
[2025-03-19 14:28] LABS: Appearance Urine Clear (Clear); Bacteria Urine Automated None Seen (None Seen); Bilirubin Urine Negative (Negative); Blood Urine 3+ (Negative); Cast Urine Automated 0-2 /lpf (0-2); Color Urine Yellow; Epithelial Cell Urine Auto 0-2 /hpf (0-2); Glucose Urine UA 1+ (Negative); Ketones Urine 3+ (Negative); Leukocyte Esterase Urine Trace (Negative); Nitrite Urine Negative (Negative); Protein Urine 1+ (Negative); RBC Urine Automated >20 /hpf (0-2); Specific Gravity Urine 1.031 (1.000-1.030); Urobilinogen Urine Negative (Negative); pH Urine 5.5 (4.5-7.5)
--- NOTE | 2025-03-19 14:50 | History & Physical Report ---
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: (11) Hypomagnesemia: (12) Lactic acidosis: (13) BPH with obstruction/lower urinary tract symptoms: (14) Chronic narcotic dependence: Plan 54yo male with panhypopituitarism, chronic resp failue on home O2 3-4 L NC o2, recent hospitalization [facility] February 23- for pneumonia/COPD, T2DM, bipolar disorder, seizure disorder, status epilepticus requiring intubation at [facility] fall), central hypothyroidism, secondary adrenal insufficiency on hy drocortisone, BPH, bipolar disorder, migraines, CORINA on CPAP, PAF with Watchman Device, and chronic narcotic dependence (norco q6h every day). Presenting with severe dyspnea, SCOTT, wheezing, cough, abdominal bloating, and decreased PO intake. Following his admission at [facility] in February his baseline NC O2 requirement was increased from 3 L continuously to 4 L continuously. Today he was switched to BIPAP shortly after arrival here due to significant dyspnea and increased work of breathing as reported by the ER attending. #acute on chronic hypoxic respiratory failure - -acute component most likely 2nd to COPD exacerbation -no pneumonic process seen on CT chest today -PE(s) in the differential but he has contrast allergy and getting CTA chest today would be challenging -although he reports weight gain he does not examine in CHF -will place on high-dose IV solumedrol 40mg IV q8h -cont duonebs QID scheduled -add saline nebs BID -narrow spectrum abx only - doxycycline 100mg BID -send a sputum cx if any sputum is produced -given his refractory symptoms for several months will ask Dr Sow to consult (Dr Sow is his primary product ambassador) -cont home inhalers -check VBG now -check dopplers of legs - r/o DVT; if + then consider VQ scan or perform pre- CT steroid protocol in order to obtain CTA chest to r/o PE #lactic acidosis - -despite the high lactate his VBG showed normal pH -etiology of lactic acidosis? due to dehydration? intra-abdominal process given his c/o abdominal fullness/bloating/etc? metformin? other? -was given 500cc bolus of fluid prior to my assessment; will give 2nd bolus of 1 liter now -hold bumex -hold metformin -fortunately repeat lactate has improved -obtain CT abd/pelvis given his GI complaints & the lactic acidosis #sinus tachycardia - -due to early sepsis? iatrogenic hyperthyroidism? dehydration/addisonian crisis? -he is tachycardic despite use of 2 beta blockers at home (uncertain why he is on 2 different agents - 1 for HTN, 1 for tremor??) -echo 10/2024 with preserved EF -s/p IV fluid bolus x 2 in ER -place on telemetry #abdominal bloating, constipation - -checked KUB x-ray -- gaseous distension (mild) and copious stool -in light of lactic acidosis will obtain CT abd/pelvis to r/o occult intra- abdominal process -at minimum has opiate-induced constipation contributing to symptoms #central hypothyroidism - -free T4 is elevated at 3.5 which would suggest iatrogenic hyperthyroidism -will send message to his primary customs patrol officer Dr Voss -hold levothyroixine in meantime #secondary adrenal insufficiency - -typically on 20mg qam and 10mg qafternoon of Hydrocortisone -last 3-4 weeks has been using 40mg in the am and 20mg in the afternoon -was given IV Hydrocortisone by the ER attending -hold further hydrocortisone for now as he will be getting copious steroids in the form of solumedrol 40mg q8h for his severe COPD flare #growth hormone def, testosterone def - cont home meds #DI - -Na level is wnl -cont desmopressin 0.4mg BID (chronic dose) #Bipolar disorder - -check lithium/depakote levels -cont lithium, depakote, aripiprazole, cymbalta, remeron, seroquel , trazodone, venlafaxine -this is a SIGNIFICANT amount of DRAG SEINER acting agents -I tried to review his pharmacy records and it does seem that most of these meds are indeed accurate -may be helpful to have psychiatry see in consult to attempt to pare down some of them -in addition to his bipolar meds he is on keppra + lacosamide -no sj at this time -the iatrogenic hyperthyroid state will certainly exacerbate his moods #seizure d/o - -cont keppra 1gm BID -cont lacosamide 150mg BID -depakote 1gm daily (this may be for bipolar, however) #T2DM - -with high-dose IV steroids will have hyperglycemia -increase lantus to 15 units BID -novolog SSI - 35 CF, carb rato 1:12, adjust as needed -although he has ketones in the urine, his pH on VBG is normal and anion gap is essentially normal as well -DKA unlikely #tremors - - inderal LA daily? #HTN - -cont meto succ, inderal LA, lisinopril (also on alpha benjamín - uncertain if this is for nightmares, BPH, or both) #BPH - -cont finasteride -cont prazosin 2mg TID #DVT proph - -lovenox 40mg daily #chronic narcotic dependence - -checked PDMP - indeed he is on norco 7.5's QID -cont such -needs bowel regimen -for chronic back pain? will need PT/OT while here once he is medically more stable appreciate Dr Sow's consult History of Present Illness Chief Complaint: cough, dyspnea, ongoing pulmonary symptoms Primary Care Provider: Larry Amaral MD 54yo male with panhypopituitarism, chronic resp failue on home O2 3-4 L NC o2, recent hospitalization [facility] February 23- for pneumonia/COPD, T2DM, bipolar disorder, seizure disorder, central hypothyroidism, secondary adrenal insufficiency on hydrocortisone, BPH, bipolar disorder, migraines, CORINA on CPAP, PAF with Watchman Device, chronic narcotic dependence (norco q6h every day). Presents with ongoing/refractory dyspnea, SCOTT (1 flight of stairs leads to such right now -- typically can walk significantly further distances), dry cough, poor PO intake, chest tightness, and wheezing. Has been on stress dose hydrocortisone for about 1 month - normally takes 20mg qam and 10mg qpm -- recently taking 40mg and 20mg, respectively over that month period. He states he is compliant with CPAP at , NC o2, and his chronic medicines. Reports 12# weight gain in the last month and feels bloated in his abdomen. Retrospectively he feels he never truly recovered from his [facility] Hospitalization in early February. Of note - he was hospitalized at [facility] in late December/early January for influenza infection & COPD exacerbation, then had a 2nd admission a few days after that for dyspnea. ED Course - Upon presentation was tachycardic, had increased work of breathing - placed on BIPAP Received NS bolus (500ml) I gave 2nd NS bolus (1 L) after my assessment Given 2 grams mag sulfate for low mag level Given IV hydrocortisone 100mg x 1 Allergies Allergy/AdvReac Type Severity Reaction Status Date / Time clindamycin Allergy Intermediate SWELLING Verified 03/18/25 09:26 Iodinated Contrast Media Allergy Intermediate face/eye Verified 03/18/25 09:26 swelling Quinolones Allergy Intermediate HIVES Verified 03/18/25 09:26 tomato AdvReac Verified 03/18/25 09:26 Home Medications Medication Instructions Recorded Confirmed Type lithium carbonate 300 mg tablet 300 mg PO AMHS 06/04/22 03/19/25 History mirtazapine 30 mg tablet (Remeron) 30 mg PO UD 06/23/22 03/19/25 History blood sugar diagnostic (OneTouch 08/06/22 03/18/25 History Verio test strips) fluticasone propionate 50 1 spray intranasal HS PRN allergy 03/16/23 03/19/25 Rx mcg/actuation nasal symptoms #16 grams spray,suspension (Flonase Allergy Relief) [employer] Rosalie 2 [place] (flash #1 ea 05/13/23 03/18/25 Rx glucose scanning reader) blood sugar diagnostic ([facility] [employer] #150 ea 11/22/23 03/18/25 Rx Verio test strips) blood-glucose meter ([facility] #1 ea 11/22/23 03/18/25 Rx Verio Reflect Meter) insulin syringe-needle U-100 1 mL #300 ea 11/22/23 03/18/25 Rx 30 gauge x 1/2" (BD Insulin Syringe Ultra-Fine) lancets 33 gauge ([employer] [facility] [employer] Delica #150 ea 11/22/23 03/18/25 Rx Plus Lancet) albuterol sulfate 90 mcg/actuation 2 inh inhalation Q6H PRN shortness 02/24/24 03/19/25 Rx aerosol inhaler (Ventolin HFA) of breath or wheezing #6.7 grams dutasteride 0.5 mg capsule 0.5 mg PO QAM 04/06/24 03/19/25 History glucagon 3 mg/actuation nasal 3 mg intranasal ONCE PRN Severe 04/06/24 03/19/25 History spray (Baqsimi) Hypoglycemia [employer] Rosalie 2 Sensor (flash #6 ea 05/02/24 03/18/25 Rx glucose sensor) aripiprazole 5 mg tablet 5 mg PO DAILY 05/29/24 03/19/25 History insulin glargine 100 unit/mL (3 12 unit subcut HS 07/19/24 03/19/25 History mL) subcutaneous pen (Lantus Solostar U-100 Insulin) ipratropium 0.5 mg-albuterol 3 mg 3 ml inhalation QID PRN wheezing 07/31/24 03/19/25 Rx (2.5 mg base)/3 mL nebulization #90 mL soln nebulizers (Compact Compressor #1 ea 07/31/24 03/18/25 Rx Nebulizer) Botox 200 unit injection See Rx Instructions IM .COMPLEX #1 09/18/24 03/19/25 Rx (onabotulinumtoxinA) ea cholecalciferol (vitamin D3) 50 50 mcg PO QPM #90 caps 09/19/24 03/19/25 Rx mcg (2,000 unit) capsule rosuvastatin 20 mg tablet 20 mg PO QAM #90 tabs 09/19/24 03/19/25 Rx pantoprazole 40 mg tablet,delayed 40 mg PO BID #60 tabs 09/21/24 03/19/25 Rx release trazodone 100 mg tablet 100 mg PO HS 10/03/24 03/19/25 History pen needle, diabetic 32 gauge x #100 ea 10/23/24 03/18/25 Rx 5/32" (BD Vy 2nd Gen Pen Needle) bumetanide 1 mg tablet 1 mg PO QAM #30 tabs 10/26/24 03/19/25 Rx vitamin B complex (Vitamins B 1 cap PO QAM #30 caps 10/26/24 03/19/25 Rx Complex capsule) hydrocodone 7.5 mg-acetaminophen 1 tab PO Q6H 11/19/24 03/19/25 History 325 mg tablet propranolol 120 mg capsule,24 120 mg PO HS 11/19/24 03/19/25 History hr,extended release tirzepatide 2.5 mg/0.5 mL 2.5 mg (0.5 mL) subcut Q7D #2 mL 11/22/24 03/19/25 Rx subcutaneous pen injector (Unruly) lorazepam 0.5 mg tablet 0.5 mg PO DAILY PRN Seizure 11/23/24 03/19/25 History Activity levetiracetam 1,000 mg tablet 1,000 mg PO Q12H #60 tabs 11/26/24 03/19/25 Rx aspirin 81 mg tablet,delayed 81 mg PO QAM #90 tabs 11/27/24 03/19/25 Rx release duloxetine 60 mg capsule,delayed 60 mg PO UD 11/27/24 03/19/25 History release ferrous sulfate 325 mg (65 mg 325 mg PO .qod 11/27/24 03/19/25 History iron) tablet desmopressin 0.2 mg tablet 0.4 mg (2 x 0.2 mg) PO BID #120 11/30/24 03/19/25 Rx tabs metoprolol succinate 25 mg 25 mg PO HS #90 tabs 11/30/24 03/19/25 Rx tablet,extended release 24 hr somatropin 5 mg/1.5 mL (3.3 mg/mL) 0.3 mg (0.09 mL) subcut QPM #2 11/30/24 03/19/25 Rx subcutaneous pen injector syringes (Norditropin FlexPro) clopidogrel 75 mg tablet (Plavix) 75 mg PO DAILY 12/03/24 03/19/25 History budesonide 0.5 mg/2 mL suspension 0.5 mg (2 mL) inhalation DAILY #60 12/04/24 03/19/25 Rx for nebulization mL lisinopril 40 mg tablet 40 mg PO DAILY #90 tabs 12/06/24 03/19/25 Rx divalproex 500 mg tablet,delayed 1,000 mg (2 x 500 mg) PO DAILY #60 12/14/24 03/19/25 Rx release tabs lacosamide 150 mg tablet 150 mg PO BID #60 tabs 12/26/24 03/19/25 Rx famotidine 20 mg tablet (Acid 20 mg PO DAILY 6 weeks #42 tabs 01/11/25 03/19/25 Rx Master Electrician (famotidine)) arformoterol 15 mcg/2 mL solution 2 ml inhalation BID 01/16/25 03/19/25 History for nebulization (Brovana) oxybutynin chloride 5 mg 5 mg PO DAILY 01/16/25 03/19/25 History tablet,extended release 24 hr hydrocortisone 10 mg tablet 10 mg PO UD #135 tabs 01/25/25 03/19/25 Rx Oxygen Home 01/30/25 03/18/25 History levothyroxine 200 mcg tablet 200 mcg PO QAM #30 tabs 02/25/25 03/19/25 Rx metformin 1,000 mg tablet 1,000 mg PO BID #180 tabs 02/26/25 03/19/25 Rx rimegepant 75 mg disintegrating 75 mg PO DAILY PRN Migraine 02/28/25 03/19/25 Rx tablet (Nurtec ODT) Headache #16 tabs amoxicillin 875 mg-potassium 1 tab PO BID 03/01/25 03/19/25 History clavulanate 125 mg tablet doxycycline hyclate 100 mg tablet 100 mg PO BID 03/01/25 03/19/25 History magnesium oxide 400 mg (241.3 mg 400 mg PO DAILY 03/01/25 03/19/25 History magnesium) tablet potassium chloride 10 mEq 10 meq PO DAILY 03/01/25 03/19/25 History tablet,extended release prazosin 2 mg capsule 2 mg PO TID 03/01/25 03/19/25 History testosterone 2 pump topical PM #75 grams 03/18/25 03/19/25 Rx nystatin 100,000 unit/gram topical 1 applic topical BID PRN Other 03/19/25 03/19/25 History cream quetiapine 50 mg tablet,extended 50 mg PO DAILY 03/19/25 03/19/25 History release 24 hr venlafaxine 150 mg 150 mg PO DAILY 03/19/25 03/19/25 History capsule,extended release 24 hr Past Med/Surg History Problem List (Updated 03/19/25 @ 23:27 by Trenton Owens MD) Chronic narcotic dependence Lactic acidosis Acute respiratory failure (Acute) Acute asthma exacerbation Compartment syndrome of lower extremity COPD with exacerbation Acute on chronic hypoxic respiratory failure Migraine Ambulatory dysfunction (Acute) LPRD (laryngopharyngeal reflux disease) Arthralgia Anti-cyclic citrullinated peptide antibody positive Restrictive lung disease Fall (Acute) Hematoma (Acute) Venous stasis ulcers (Acute) Chronic venous insufficiency (Chronic) Presbyopia of both eyes Epiretinal membrane (ERM) of left eye Ocular hypertension Secondary cataract of left eye with vision obscured Combined form of senile cataract of right eye Abnormal PFTs (pulmonary function tests) Abnormal chest CT COPD (chronic obstructive pulmonary disease) (Acute) Demyelinating disease Hypertension (Acute) Secondary adrenal insufficiency Pituitary hypogonadism Follows with endocrinology- Pituitary hypothyroidism Follows with endocrinology- Non-occlusive coronary artery disease Lumbar stenosis with neurogenic claudication Esophageal dysphagia Anxiety (Chronic) Mitral regurgitation Essential tremor Idiopathic polyneuropathy Arachnoid cyst of posterior cranial fossa Obstructive sleep apnea (Acute) Mixed hyperlipidemia Ulcerative colitis Anemia (Acute) Bipolar disorder (10/11/22) Chronic migraine without aura or status migrainosus Uncontrolled type 2 diabetes mellitus with hyperglycemia Suspect low glycation index meaning his A1c is typically about 2 points lower than what his average glucose would suggest. Current use of proton pump inhibitor Severe obesity (BMI 35.0-35.9 with comorbidity) 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 Growth hormone deficiency Depression BPH with obstruction/lower urinary tract symptoms Medical History Diaphoresis Acute hypoxic respiratory failure Influenza A Influenza A Seizure disorder Presence of Watchman left atrial appendage closure device Status epilepticus (09/13/24) Knee hemarthrosis, right (09/13/24) Acute on chronic anemia (09/13/24) Acute metabolic encephalopathy (09/13/24) Acute hypoxic respiratory failure (09/13/24) Laceration of toe of right foot Closed fracture of right fibula with malunion Type 2 diabetes mellitus Right fibular fracture Acute on chronic respiratory failure with hypoxia and hypercapnia Shortness of breath Acute hypercapnic respiratory failure Acute hypercapnic respiratory failure Chronic respiratory failure with hypoxia Obesity CKD (chronic kidney disease), stage III Peripheral edema Seizure disorder Atrial fibrillation (02/15/24) Chronic low back pain Panhypopituitarism Lumbosacral radiculopathy Toxic encephalopathy Chest pain Acute dyspnea Acute CHF Hypoglycemia Syncope and collapse Reason for loop recorder No recent issues since bed bound from femur fracture in Sep 2022 per patient Internal hemorrhoids Recurrent seizures Pituitary diabetes insipidus Follows with endocrinology- on DDAVP Spondylolysis, lumbar region Right lumbar radiculopathy HTN (hypertension) Bipolar disorder Adrenal insufficiency Pituitary adenoma Diabetes Bleeding (02/16/24) Acute blood loss anemia (02/19/24) Hyperactive gag reflex BRCA gene positive tested positive in Aug 2023 [place] > reason for up coming EGD Family history of BRCA gene mutation PTSD (post-traumatic stress disorder) Epidural lipomatosis Chronic left sacroiliac pain Benzodiazepine overdose none since Nov 2022 Presence of cardiac device Loop recorder > last checked fall 2022 Hx of fracture of foot Sep 2022- right > cast since removed > still gets painful Fracture of fibula, right, closed Cerebral concussion May 2023 during seizure > no further issues Orthostatic hypotension Pseudoseizures Sensorineural hearing loss of both ears Rectal bleeding on occasion History of COVID-19 10/2021 - fatigue; resolved. Mitral valve regurgitation follows with Dr. Phillips Vertigo Panhypopituitarism Lower extremity edema Elevated LFTs Bilateral hand pain Pituitary neoplasm Dx'ed in 2001- s/p surgical resection and XRT Repeat surgery in 2018 secondary to tumor regrowth at [facility] Kidney stones HX Prostate mass benign Bladder mass benign Obstructive sleep apnea of adult cpap > non compliant per pt Surgical History S/P TURP (status post transurethral resection of prostate) History of lumbar fusion [facility] Jul 2022 History of cardiac cath 07/2021 - no stents S/P epidural steroid injection History of lithotripsy Status post right foot surgery replaced 5th metatarsal--hardware in place History of bladder surgery remove mass History of prostate surgery remove mass History of colonoscopy History of esophagogastroduodenoscopy (EGD) History of tooth extraction History of wisdom tooth extraction History of brain surgery x2---2004 @ [facility], 2018 @ [facility]--for brain tumors > caused epilepsy Family History Grandmother (Paternal) Family history of diabetes mellitus Aunt Family history of diabetes mellitus Uncle Family history of diabetes mellitus Father Prostate cancer Heart disease Osteoarthritis Mother Cardiac disorder Grandmother (Maternal) Myocardial infarction Other Asthma Cancer Hypertension No family history of adverse response to anesthesia No family history of bleeding disorder Stroke Denies family history of Ovarian cancer Breast cancer Colorectal cancer Social History (Updated 03/19/25 @ 23:15 by Trenton Owens MD) Smoking Status: Never smoker Second Hand Exposure: No; Do You Dip or Chew Tobacco: No; Hx Alcohol Use: No Hx Substance Use: No Preferred Language: Greek Communication Ability: Effective Communication Ability Comment: Unable to obtain due to patient condition. Visual Impairment: Limited Hearing Ability: Normal Bible Reader Required: No Beliefs That Will Affect Care: None marital status: Single Current Living Situation: Spouse Current Living Situation Comment: and daughter in [place] current occupational status: disabled How many Children do You have: 3 How many Children do You have Comment: able to assist with care if needed Feels Safe at Home: Yes Childhood Exposure to Second-Hand Smoke: Yes (parents smoked) Diet: regular Diet Comment: going to be starting low carb/low calorie diet. caffeine: No (1/2 20 oz bottle of mountain dew. ) during the past year weight has: increased > 10 lbs Physical Activity Frequency: Daily Physical Activity Frequency Comment: walking, 1.5 miles daily. Seatbelt Use: always Do you think of yourself as: straight/heterosexual Gender Identity: Male Assistive Devices: BiPap, Cane, Oxygen - Continuous and Walker Review of Systems Review of Systems: gen - had fevers several weeks ago early February, none more recent; no chills; d ecreased PO intake; weight gain (12 pounds), but weights in computer don't reflect that (weights here suggest weight loss) eyes - no visual loss recently HENT - R ear discomfort, popping; no sinus symptoms; no sore throat neck - no pain CV - chest tightness but no pain, no edema of LEs, has PND/orthopnea pulm - cough (dry), wheezing, dyspnea at rest, SCOTT GI - abd bloating but no discrete pain; no vomiting; no nausea; constipation issues - no recent LUTS musculo - chronic back pain - no change endo - DM excellent control skin - no rash neuro - no motor weakness Physical Exam Physical Exam: gen - patient with BIPAP in place; able to speak in full sentences; no distress by the time of my assessment; obese eyes - PERRL HENT - b/l Tms clear, nose clear, mouth - MM dry neck - no JVD, no lymph nodes, no goiter heart - tachy, s1 s2, no murmur lungs - diffuse wheezing all lung segments; mildly decreased BS bases; no rales; no retractions abd - mildly distended, NT, BS+, no HSM ext - no edema, pulses 2+ b/l feet neuro - strength 5/5 x 4 exts; no facial droop skin - no rash psych - a/o x 3; no sj Results & Data Results & Data Vital Signs (Past 12 Hours) Vital Signs Temp Pulse Pulse Resp BP BP Pulse Ox 03/19/25 13:53 111 H 26 H 136/78 96 03/19/25 13:06 20 95 03/19/25 12:11 97 03/19/25 12:10 116 H 03/19/25 12:00 36.5 C 123 H 20 140/74 96 03/19/25 11:53 107 H 18 139/91 96 O2 Del Method O2 Flow Rate 03/19/25 13:53 Nasal Cannula 4 03/19/25 13:06 Nasal Cannula 4 03/19/25 12:11 Nasal Cannula 4 03/19/25 12:10 03/19/25 12:00 Room Air 03/19/25 11:53 Nasal Cannula 4 Laboratory Results Laboratory Results - last 24 hr 03/19/25 03/19/25 03/19/25 12:19 12:22 12:45 WBC 18.51 H RBC 4.43 L Hgb 13.1 L Hct 38.2 L MCV 86.2 MCH 29.6 MCHC 34.3 RDW Std Deviation 46.2 RDW Coeff of Yanira 14.6 H Plt Count 191 MPV 8.7 L Immature Gran % (Auto) 2.3 Neut % (Auto) 84.9 Lymph % (Auto) 7.8 Montgomery % (Auto) 4.9 Eos % (Auto) 0.0 Baso % (Auto) 0.1 Neut # (Auto) 15.71 H Lymph # (Auto) 1.45 Montgomery # (Auto) 0.90 H Eos # (Auto) 0.00 Baso # (Auto) 0.02 Immature Gran # (Auto) 0.43 H PT 10.5 INR 1.0 VBG pH VBG pCO2 VBG pO2 VBG HCO3 VBG O2 Saturation VBG Base Excess Sodium 138 Potassium 4.0 Chloride 100 Carbon Dioxide 25 Anion Gap 13 H BUN 13 Creatinine 0.81 Est Cr Clr Drug Dosing 130.1 eGFR 103.48 BUN/Creatinine Ratio 16.0 Glucose 229 H POC Glucose Lactate 7.2 H* Calcium 9.3 Magnesium 1.3 L Total Bilirubin 0.4 AST 12 L ALT 25 Alkaline Phosphatase 54 Troponin I High Sens 5.9 B-Natriuretic Peptide 124 H Total Protein 6.8 Albumin 4.4 Globulin 2.4 L Albumin/Globulin Ratio 1.8 Lipase 38 Procalcitonin < 0.02 Free T4 Random Cortisol 10.86 Urine Color Urine Appearance Urine pH Ur Specific Dillard Urine Protein Urine Glucose (UA) Urine Ketones Urine Blood Urine Nitrite Urine Bilirubin Urine Urobilinogen Ur Leukocyte Esterase Urine WBC (Auto) Urine RBC (Auto) U Hyaline Cast (Auto) U Epithel Cells (Auto) Urine Bacteria (Auto) Valproic Acid Dresser Adenovirus (PCR) Not Detected B. pertussis DNA (PCR) Not Detected B.parapertussis DNA PCR Not Detected C. pneumoniae DNA (PCR) Not Detected Coronavirus OC43 (PCR) Not Detected Coronavirus HKU1 (PCR) Not Detected Coronavirus 229E (PCR) Not Detected SARS-CoV-2 (PCR) Not Detected Coronavirus NL63 (PCR) Not Detected Human Metapneumovir PCR Not Detected Influenza Type A (PCR) Not Detected Influenza Type B (PCR) Not Detected M. pneumoniae (PCR) Not Detected Parainfluenza 1 (PCR) Not Detected Parainfluenza 2 (PCR) Not Detected Parainfluenza 3 (PCR) Not Detected Parainfluenza 4 (PCR) Not Detected RSV (PCR) Not Detected Entero/Rhino (PCR) Not Detected 03/19/25 03/19/25 03/19/25 13:42 14:48 15:52 WBC RBC Hgb Hct MCV MCH MCHC RDW Std Deviation RDW Coeff of Yanira Plt Count MPV Immature Gran % (Auto) Neut % (Auto) Lymph % (Auto) Montgomery % (Auto) Eos % (Auto) Baso % (Auto) Neut # (Auto) Lymph # (Auto) Montgomery # (Auto) Eos # (Auto) Baso # (Auto) Immature Gran # (Auto) PT INR VBG pH 7.44 H VBG pCO2 40 VBG pO2 40 VBG HCO3 27 VBG O2 Saturation 68.0 VBG Base Excess 2.8 Sodium Potassium Chloride Carbon Dioxide Anion Gap BUN Creatinine Est Cr Clr Drug Dosing eGFR BUN/Creatinine Ratio Glucose POC Glucose Lactate 5.9 H* Calcium Magnesium Total Bilirubin AST ALT Alkaline Phosphatase Troponin I High Sens B-Natriuretic Peptide Total Protein Albumin Globulin Albumin/Globulin Ratio Lipase Procalcitonin Free T4 3.51 H Random Cortisol Urine Color Yellow Urine Appearance Clear Urine pH 5.5 Ur Specific Dillard 1.031 H Urine Protein 1+ H Urine Glucose (UA) 1+ H Urine Ketones 3+ H Urine Blood 3+ H Urine Nitrite Negative Urine Bilirubin Negative Urine Urobilinogen Negative Ur Leukocyte Esterase Trace H Urine WBC (Auto) 11-20 H Urine RBC (Auto) >20 H U Hyaline Cast (Auto) 0-2 U Epithel Cells (Auto) 0-2 Urine Bacteria (Auto) None Seen Valproic Acid 78 Dresser < 0.1 L Adenovirus (PCR) B. pertussis DNA (PCR) B.parapertussis DNA PCR C. pneumoniae DNA (PCR) Coronavirus OC43 (PCR) Coronavirus HKU1 (PCR) Coronavirus 229E (PCR) SARS-CoV-2 (PCR) Coronavirus NL63 (PCR) Human Metapneumovir PCR Influenza Type A (PCR) Influenza Type B (PCR) M. pneumoniae (PCR) Parainfluenza 1 (PCR) Parainfluenza 2 (PCR) Parainfluenza 3 (PCR) Parainfluenza 4 (PCR) RSV (PCR) Entero/Rhino (PCR) Diagnostic Findings Chest X-Ray 03/19/25 12:11 XR chest 1V portable CLINICAL HISTORY: Chest pain, nonspecific COMPARISON STUDY: Chest CT October 24, 2024. Chest radiograph February 04, 2025. FINDINGS: Lung volumes are mildly diminished. There is no pneumothorax or definite pleural effusion. Possible trace left pleural effusion. Cardiomediastinal silhouette is stable. There is mild interstitial thickening. There is no consolidation to suggest pneumonia. Old left clavicular fracture is incidentally noted. IMPRESSION: 1. Cardiomegaly. Interstitial thickening. This may represent pulmonary vascular congestion or an infectious process. No consolidation. 2. Possible trace left pleural effusion. ACT 112: Negative or not required by law. Electronically signed by: Aditya Foley M.D. 03/19/2025 12:[address] 03/19/25 12:33 CT chest diagnostic wo con CT DOSE: 835.35 mGy.cm CLINICAL HISTORY: 54 years-old Male with sob, copd, ?PNA. Acute shortness breath with possible pneumonia TECHNIQUE: Multiaxial CT images of the chest were performed without contrast. A dose lowering technique was utilized adhering to the principles of ALARA. COMPARISON: Chest radiograph of same day, chest CT 10/24/2024 FINDINGS: No thyroid nodule. Mild subcarinal lymphadenopathy is unchanged. Heart is upper limits of normal in size. Left atrial exclusion device. [id number] coronary artery calcifications. No thoracic aortic aneurysm. Trace pleural effusions. Mild linear subsegmental bibasilar atelectasis versus scarring. No definite interstitial pulmonary edema or airspace consolidation typical for pneumonia. Central airways appear patent. No acute upper abdominal abnormality. The liver appears enlarged. Unremarkable soft tissues. No acute fracture is seen. IMPRESSION: 1. Cardiomegaly without definite pulmonary edema or airspace consolidation typical for pneumonia. 2. Unchanged likely benign subcarinal lymphadenopathy. 3. Mild subsegmental bibasilar atelectasis. ACT 112: Negative or not required by law. Electronically signed by: Bean Tolentino M.D. 03/19/2025 1:14 PM KUB X-Ray 03/19/25 15:55 EXAM: XR KUB/Abdomen 1 view CLINICAL HISTORY: Abdominal bloating, ileus, constipation. TECHNIQUE: X-ray images of the abdomen were obtained in supine and upright positions. COMPARISON: Comparison was made on 10/23/2024 study. FINDINGS: Gas Pattern: Mild feces loading is noted in the right, left side, and midline upper regions. No evidence of small bowel obstruction or distention. No evidence of obvious stone in the urinary traces. The abdomen appears distended and has increased blurry radioopacities. Tiny phlebolith calcification is noted in the left side of the pelvis. Metallic fixation materials are seen in the lower lumbar region. Abdominal viscera are unremarkable. IMPRESSION: 1. Mild feces loading noted in the right, left side, and midline upper regions. 2. The distended abdomen has increased blurry radioopacities(Ultrasound or CT is advised for better assessment). 3. In the interval, the left-sided gas pattern seems regressed; however, distention appears mildly prominent. Electronically signed by Ren Madrid 03-19-2025 5:22 PM EKG - my reading - sinus tach, left axis deviation, no ST changes Code Status & VTE Plan Code Status patient reports he has a DNR/DNI status he was intubated when he had compartment syndrome in 2023 and states he "never wants to go thru that again" (intubation/mech ventilation) PG Care Time/CCT Total # of Minutes Spent Total Time Spent with Patient: Total time spent is greater than 50% in coordination of care (as documented) at patient's floor/unit and/or counseling patient: Coding Level of Care Code 30137 INT INP/OBS CARE 3/75MIN Diagnoses Acute on chronic hypoxic respiratory failure J96.21 COPD with exacerbation J44.1 Uncontrolled type 2 diabetes mellitus with hyperglycemia E11.65 Bipolar disorder F31.9 Pituitary hypothyroidism E03.8 Pituitary hypogonadism E23.0 Secondary adrenal insufficiency E27.49 Presence of Watchman left atrial appendage closure device Z95.818 Seizure disorder G40.909 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
[2025-03-19 15:00] LABS: Base Excess VBG 2.8 mEq/L; HCO3 VBG 27 mmol/L; PCO2 VBG 40 mmHg (38-50); PO2 VBG 40 mmHg; pH VBG 7.44 (7.36-7.41)
[2025-03-19] MEDS: PIPERACILLIN/TAZOBACTAM 4.5 GM/100 ML BAG IV ONE (15:27)
--- NOTE | 2025-03-19 15:57 | Pulmonary Consultation ---
Date of Consultation March 19, 2025 Assessment & Plan (1) Acute asthma exacerbation: (2) Anti-cyclic citrullinated peptide antibody positive: (3) Restrictive lung disease: (4) Acute on chronic hypoxic respiratory failure: (5) Abnormal PFTs (pulmonary function tests): (6) Pituitary hypogonadism: (7) Obstructive sleep apnea: Plan CT chest 10/24/2024 personally reviewed: 3 mm upper lobe pulmonary nodule Linear atelectasis bilateral lower lobes, more on the right side Minimal subcarinal mediastinal lymphadenopathy PFT 12/04/2024 personally reviewed: Moderate to severe restrictive lung dysfunction, mild decrease in TLC, air trapping, significant bronchodilator response, mild decrease in DLCO FVC 2.26 L 46%, FEV1 1.76 L 46%, FEV1/FVC 78%, RV 95%, ERV 1%, TLC 73%, RV/TLC 127%, DLCO 71%, DLCO/VA 125% 2D echo 10/24/2024: EF 60-65%, RV normal in size and function --Acute hypoxic respiratory failure secondary to acute asthma exacerbation On budesonide and Brovana at home Respiratory BioFire negative for everything on 03/19/2025 Procalcitonin negative BNP 124 -- Exertional shortness of breath Multifactorial 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 Dry mouth Denies any dry eyes. No difficulty swallowing Labs 08/10/2024: Negative HEBER, rheumatoid factor negative but anti-CCP positive --Restrictive lung disease FVC 46%, TLC 73%, ERV 1%, DLCO 71% Likely from BMI of 37 Weight loss and incentive spirometry will be beneficial --Severe CORINA Polysomnography 07/04/2024: AHI 45.2, average oxygen 88% Using auto CPAP at home, following up with [facility] --Chewing tobacco Advised to quit --Obesity Advised to lose weight diet and exercise --History of A-fib S/p Watchman device Not on any anticoagulation --Panhypopituitarism On desmopressin 0.4 and hydrocortisone 20 mg in the morning and 10 mg in the afternoon --Morning stiffness lasting more than 30 minutes Anti-CCP positive, rheumatoid factor negative Plan: Continue with steroids, nebulized bronchodilators I will add Incruse to the regimen I will order RAST panel to be done tomorrow along with IgE Doppler lower extremity to see if he has any clots. Patient does have allergy to contrast. VQ scan could be thought of if need be I will try to get images from [facility] Case was discussed with primary team Please note the above document was generated using voice recognition software. It may contain grammatical, syntax or spelling errors.Any formal questions or concerns about the content, text or information contained within the body of this dictation should be directly addressed to the provider for clarification. History of Present Illness History of Present Illness 54-year-old male admitted to the hospital with complaints of shortness of breath Past medical history: Hypertension, anxiety/depression, BPH, hypothyroidism, diabetes, history of A-fib s/p Watchman procedure, panhypopituitarism, history of seizures Patient was last seen by me in the clinic on 12/04/2024 In the interim as per the chart patient was admitted to [facility] for influenza A in September 2025, [facility] 02/20/2025 with left lower lobe pneumonia and sepsis He was given antibiotics and discharged home He had another bout of pneumonia as per the patient around 03/10/2025 again at [facility] for which she was given antibiotics and 4 L oxygen He was seen by primary care doctor 03/18/2025 when he was still complaining of shortness of breath, she did reach out to me. And I advised her to send him to the ER Patient is compliant with budesonide and formoterol nebulized twice a day. He says that he has been having issues with his breathing since at least December 2024 He feels chest heaviness and tightness even at rest. He has been coughing but denies any significant chest congestion. No hemoptysis Does have chronic chills but no subjective fever No night sweats, no unintentional weight loss. Patient has actually gained 12 pounds in the recent past Complains of abdominal bloating but no abdominal pain. No nausea or vomiting Denies any new plant, perfume, detergent at home Does complain of Raynaud's along with morning joint stiffness. Dry mouth Denies any dry eyes. No difficulty swallowing No personal or family history of autoimmune disease Social history: Lifetime non-smoker, social alcohol, no illicit drug use, chews tobacco since the age of 10 Works in [employer] Pets: Has dogs at home. No birds or poultry nearby Allergies: Seasonal Asthma: Family history of asthma and kids Lung cancer: No history of lung cancer in the family Allergies Allergy/AdvReac Type Severity Reaction Status Date / Time clindamycin Allergy Intermediate SWELLING Verified 03/18/25 09:26 Iodinated Contrast Media Allergy Intermediate face/eye Verified 03/18/25 09:26 swelling Quinolones Allergy Intermediate HIVES Verified 03/18/25 09:26 tomato AdvReac Verified 03/18/25 09:26 Home Medications Medication Instructions Recorded Confirmed Type lithium carbonate 300 mg tablet 300 mg PO AMHS 06/04/22 03/19/25 History mirtazapine 30 mg tablet (Remeron) 30 mg PO UD 06/23/22 03/19/25 History blood sugar diagnostic (OneTouch 08/06/22 03/18/25 History Verio test strips) fluticasone propionate 50 1 spray intranasal HS PRN allergy 03/16/23 03/19/25 Rx mcg/actuation nasal symptoms #16 grams spray,suspension (Flonase Allergy Relief) FreeStyle Rosalie 2 Abrams (flash #1 ea 05/13/23 03/18/25 Rx glucose scanning reader) [facility] 11/22/23 03/18/25 Rx Verio test strips) blood-glucose meter ([facility] 11/22/23 03/18/25 Rx Verio Reflect Meter) insulin syringe-needle U-100 1 mL #300 ea 11/22/23 03/18/25 Rx 30 gauge x 1/2" (BD Insulin Syringe Ultra-Fine) lancets 33 gauge (OneTouch Delica #150 ea 11/22/23 03/18/25 Rx Plus Lancet) albuterol sulfate 90 mcg/actuation 2 inh inhalation Q6H PRN shortness 02/24/24 03/19/25 Rx aerosol inhaler (Ventolin HFA) of breath or wheezing #6.7 grams dutasteride 0.5 mg capsule 0.5 mg PO QAM 04/06/24 03/19/25 History glucagon 3 mg/actuation nasal 3 mg intranasal ONCE PRN Severe 04/06/24 03/19/25 History spray (Baqsimi) Hypoglycemia FreeStyle Rosalie 2 Sensor (flash #6 ea 05/02/24 03/18/25 Rx glucose sensor) aripiprazole 5 mg tablet 5 mg PO DAILY 05/29/24 03/19/25 History insulin glargine 100 unit/mL (3 12 unit subcut HS 07/19/24 03/19/25 History mL) subcutaneous pen (Lantus Solostar U-100 Insulin) ipratropium 0.5 mg-albuterol 3 mg 3 ml inhalation QID PRN wheezing 07/31/24 03/19/25 Rx (2.5 mg base)/3 mL nebulization #90 mL soln nebulizers (Compact Compressor #1 ea 07/31/24 03/18/25 Rx Nebulizer) Botox 200 unit injection See Rx Instructions IM .COMPLEX #1 09/18/24 03/19/25 Rx (onabotulinumtoxinA) ea cholecalciferol (vitamin D3) 50 50 mcg PO QPM #90 caps 09/19/24 03/19/25 Rx mcg (2,000 unit) capsule rosuvastatin 20 mg tablet 20 mg PO QAM #90 tabs 09/19/24 03/19/25 Rx pantoprazole 40 mg tablet,delayed 40 mg PO BID #60 tabs 09/21/24 03/19/25 Rx release trazodone 100 mg tablet 100 mg PO HS 10/03/24 03/19/25 History pen needle, diabetic 32 gauge x #100 ea 10/23/24 03/18/25 Rx 5/32" (BD Vy 2nd Gen Pen Needle) bumetanide 1 mg tablet 1 mg PO QAM #30 tabs 10/26/24 03/19/25 Rx vitamin B complex (Vitamins B 1 cap PO QAM #30 caps 10/26/24 03/19/25 Rx Complex capsule) hydrocodone 7.5 mg-acetaminophen 1 tab PO Q6H 11/19/24 03/19/25 History 325 mg tablet propranolol 120 mg capsule,24 120 mg PO HS 11/19/24 03/19/25 History hr,extended release tirzepatide 2.5 mg/0.5 mL 2.5 mg (0.5 mL) subcut Q7D #2 mL 11/22/24 03/19/25 Rx subcutaneous pen injector (Unruly) lorazepam 0.5 mg tablet 0.5 mg PO DAILY PRN Seizure 11/23/24 03/19/25 History Activity levetiracetam 1,000 mg tablet 1,000 mg PO Q12H #60 tabs 11/26/24 03/19/25 Rx aspirin 81 mg tablet,delayed 81 mg PO QAM #90 tabs 11/27/24 03/19/25 Rx release duloxetine 60 mg capsule,delayed 60 mg PO UD 11/27/24 03/19/25 History release ferrous sulfate 325 mg (65 mg 325 mg PO .qod 11/27/24 03/19/25 History iron) tablet desmopressin 0.2 mg tablet 0.4 mg (2 x 0.2 mg) PO BID #120 11/30/24 03/19/25 Rx tabs metoprolol succinate 25 mg 25 mg PO HS #90 tabs 11/30/24 03/19/25 Rx tablet,extended release 24 hr somatropin 5 mg/1.5 mL (3.3 mg/mL) 0.3 mg (0.09 mL) subcut QPM #2 11/30/24 03/19/25 Rx subcutaneous pen injector syringes (Norditropin FlexPro) clopidogrel 75 mg tablet (Plavix) 75 mg PO DAILY 12/03/24 03/19/25 History budesonide 0.5 mg/2 mL suspension 0.5 mg (2 mL) inhalation DAILY #60 12/04/24 03/19/25 Rx for nebulization mL lisinopril 40 mg tablet 40 mg PO DAILY #90 tabs 12/06/24 03/19/25 Rx divalproex 500 mg tablet,delayed 1,000 mg (2 x 500 mg) PO DAILY #60 12/14/24 03/19/25 Rx release tabs lacosamide 150 mg tablet 150 mg PO BID #60 tabs 12/26/24 03/19/25 Rx famotidine 20 mg tablet (Acid 20 mg PO DAILY 6 weeks #42 tabs 01/11/25 03/19/25 Rx Quality Assurance Coordinator (famotidine)) arformoterol 15 mcg/2 mL solution 2 ml inhalation BID 01/16/25 03/19/25 History for nebulization (Brovana) oxybutynin chloride 5 mg 5 mg PO DAILY 01/16/25 03/19/25 History tablet,extended release 24 hr hydrocortisone 10 mg tablet 10 mg PO UD #135 tabs 01/25/25 03/19/25 Rx Oxygen Home 01/30/25 03/18/25 History levothyroxine 200 mcg tablet 200 mcg PO QAM #30 tabs 02/25/25 03/19/25 Rx metformin 1,000 mg tablet 1,000 mg PO BID #180 tabs 02/26/25 03/19/25 Rx rimegepant 75 mg disintegrating 75 mg PO DAILY PRN Migraine 02/28/25 03/19/25 Rx tablet (Nurtec ODT) Headache #16 tabs amoxicillin 875 mg-potassium 1 tab PO BID 03/01/25 03/19/25 History clavulanate 125 mg tablet doxycycline hyclate 100 mg tablet 100 mg PO BID 03/01/25 03/19/25 History magnesium oxide 400 mg (241.3 mg 400 mg PO DAILY 03/01/25 03/19/25 History magnesium) tablet potassium chloride 10 mEq 10 meq PO DAILY 03/01/25 03/19/25 History tablet,extended release prazosin 2 mg capsule 2 mg PO TID 03/01/25 03/19/25 History testosterone 2 pump topical PM #75 grams 03/18/25 03/19/25 Rx nystatin 100,000 unit/gram topical 1 applic topical BID PRN Other 03/19/25 03/19/25 History cream quetiapine 50 mg tablet,extended 50 mg PO DAILY 03/19/25 03/19/25 History release 24 hr venlafaxine 150 mg 150 mg PO DAILY 03/19/25 03/19/25 History capsule,extended release 24 hr Patient History Medical History Diaphoresis Acute hypoxic respiratory failure Influenza A Influenza A Seizure disorder Presence of Watchman left atrial appendage closure device Status epilepticus (09/13/24) Knee hemarthrosis, right (09/13/24) Acute on chronic anemia (09/13/24) Acute metabolic encephalopathy (09/13/24) Acute hypoxic respiratory failure (09/13/24) Laceration of toe of right foot Closed fracture of right fibula with malunion Type 2 diabetes mellitus Right fibular fracture Acute on chronic respiratory failure with hypoxia and hypercapnia Shortness of breath Acute hypercapnic respiratory failure Acute hypercapnic respiratory failure Chronic respiratory failure with hypoxia Obesity CKD (chronic kidney disease), stage III Peripheral edema Seizure disorder Atrial fibrillation (02/15/24) Chronic low back pain Panhypopituitarism Lumbosacral radiculopathy Toxic encephalopathy Chest pain Acute dyspnea Acute CHF Hypoglycemia Syncope and collapse Internal hemorrhoids Recurrent seizures Pituitary diabetes insipidus Spondylolysis, lumbar region Right lumbar radiculopathy HTN (hypertension) Bipolar disorder Adrenal insufficiency Pituitary adenoma Diabetes Bleeding (02/16/24) Acute blood loss anemia (02/19/24) Hyperactive gag reflex BRCA gene positive Family history of BRCA gene mutation PTSD (post-traumatic stress disorder) Epidural lipomatosis Chronic left sacroiliac pain Benzodiazepine overdose Presence of cardiac device Hx of fracture of foot Fracture of fibula, right, closed Cerebral concussion Orthostatic hypotension Pseudoseizures Sensorineural hearing loss of both ears Rectal bleeding History of COVID-19 Mitral valve regurgitation Vertigo Panhypopituitarism Lower extremity edema Elevated LFTs Bilateral hand pain Pituitary neoplasm Kidney stones Prostate mass Bladder mass Obstructive sleep apnea of adult Surgical History S/P TURP (status post transurethral resection of prostate) History of lumbar fusion History of cardiac cath S/P epidural steroid injection History of lithotripsy Status post right foot surgery History of bladder surgery History of prostate surgery History of colonoscopy History of esophagogastroduodenoscopy (EGD) History of tooth extraction History of wisdom tooth extraction History of brain surgery Family History Grandmother (Paternal) Family history of diabetes mellitus Aunt Family history of diabetes mellitus Uncle Family history of diabetes mellitus Father Prostate cancer Heart disease Osteoarthritis Mother Cardiac disorder Grandmother (Maternal) Myocardial infarction Other Asthma Cancer Hypertension No family history of adverse response to anesthesia No family history of bleeding disorder Stroke Denies family history of Ovarian cancer Breast cancer Colorectal cancer Social History Smoking Status: Never smoker Second Hand Exposure: No; Do You Dip or Chew Tobacco: No; Hx Alcohol Use: No Hx Substance Use: No Preferred Language: Senegalese Communication Ability: Effective Communication Ability Comment: Unable to obtain due to patient condition. Visual Impairment: Limited Hearing Ability: Normal Search Engine Optimizer Required: No Beliefs That Will Affect Care: None marital status: Single Current Living Situation: Spouse Current Living Situation Comment: and daughter current occupational status: disabled How many Children do You have: 3 How many Children do You have Comment: able to assist with care if needed Feels Safe at Home: Yes Childhood Exposure to Second-Hand Smoke: Yes (parents smoked) Diet: regular Diet Comment: going to be starting low carb/low calorie diet. caffeine: No (1/2 20 oz bottle of mountain dew. ) during the past year weight has: increased > 10 lbs Physical Activity Frequency: Daily Physical Activity Frequency Comment: walking, 1.5 miles daily. Seatbelt Use: always Do you think of yourself as: straight/heterosexual Gender Identity: Male Assistive Devices: Cane and Walker Review of Systems 2 Review of Systems: All systems reviewed & are unremarkable except as noted in HPI & below Physical Exam 2 Physical Exam: Constitutional: No acute distress HEENT: EOMI, PERRLA, short thick neck Respiratory system: Decreased air entry bilaterally, diffuse expiratory wheeze bilaterally, positive rhonchi, no crackles CVS: S1-S2 positive, no murmurs or gallops Abdomen: Soft, nontender, nondistended, positive bowel sounds x4, obese Extremities: +2 pulses bilaterally radialis/ dorsalis pedis, no cyanosis, no edema Neuro: Awake alert oriented x3 Psych: Normal mood and affect G/U: No Welsh Skin: no rashes, warm and dry Lymphatic: no cervical or axillary lymphadenopathy Results & Data Results & Data Vital Signs (Past 12 Hours) Vital Signs Temp Pulse Pulse Resp BP BP Pulse Ox 03/19/25 14:50 99 H 20 99 03/19/25 14:50 97 03/19/25 13:53 111 H 26 H 136/78 96 03/19/25 13:06 20 95 03/19/25 12:11 97 03/19/25 12:10 116 H 03/19/25 12:00 36.5 C 123 H 20 140/74 96 03/19/25 11:53 107 H 18 139/91 96 O2 Del Method O2 Flow Rate FiO2 03/19/25 14:50 36 03/19/25 14:50 BiPAP 36 03/19/25 13:53 Nasal Cannula 4 03/19/25 13:06 Nasal Cannula 4 03/19/25 12:11 Nasal Cannula 4 03/19/25 12:10 03/19/25 12:00 Room Air 03/19/25 11:53 Nasal Cannula 4 Laboratory Results 03/19/25 12:19 03/19/25 12:19 PG Care Time/CCT Total # of Minutes Spent Total Time Spent with Patient: Total time spent is greater than 50% in coordination of care (as documented) at patient's floor/unit and/or counseling patient: Coding Level of Care Code 01855 INT INP/OBS CARE 375MIN Diagnoses Acute asthma exacerbation J45.901 Anti-cyclic citrullinated peptide antibody positive R76.8 Restrictive lung disease J98.4 Acute on chronic hypoxic respiratory failure J96.21 Abnormal PFTs (pulmonary function tests) R94.2 Pituitary hypogonadism E23.0 Obstructive sleep apnea G47.33
[2025-03-19 16:45] LABS: Lithium < 0.1 mmol/L (0.6-1.2); Valproic Acid 78 mcg/ml (50-100)
[2025-03-19] MEDS: MAGNESIUM SULFATE / D5W 1 GM/100 ML BAG IV SCH (16:57)
--- NOTE | 2025-03-19 17:23 | XRay Report ---
EXAM: XR KUB/Abdomen 1 view CLINICAL HISTORY: Abdominal bloating, ileus, constipation. TECHNIQUE: X-ray images of the abdomen were obtained in supine and upright positions. COMPARISON: Comparison was made on 10/23/2024 study. FINDINGS: Gas Pattern: Mild feces loading is noted in the right, left side, and midline upper regions. No evidence of small bowel obstruction or distention. No evidence of obvious stone in the urinary traces. The abdomen appears distended and has increased blurry radioopacities. Tiny phlebolith calcification is noted in the left side of the pelvis. Metallic fixation materials are seen in the lower lumbar region. Abdominal viscera are unremarkable. IMPRESSION: 1. Mild feces loading noted in the right, left side, and midline upper regions. 2. The distended abdomen has increased blurry radioopacities(Ultrasound or CT is advised for better assessment). 3. In the interval, the left-sided gas pattern seems regressed; however, distention appears mildly prominent. Electronically signed by Ren Madrid 03-19-2025 5:22 PM
[2025-03-19] MEDS ORDERED: ONDANSETRON INJ 2 MG/ML 2 ML VIAL IV PRN (17:24)
[2025-03-19] MEDS ORDERED: ACETAMINOPHEN 325 MG TAB PO PRN (17:24)
[2025-03-19] MEDS: SODIUM CHLORIDE 0.9% 1,000 ML IV ONE (17:55)
[2025-03-19] MEDS: HYDROCODONE/ACETAMINOPHEN 7.5/325MG TAB PO SCH (17:55)
[2025-03-19] MEDS: INSULIN ASPART PER UNIT CHARGE SC SCH (17:55)
[2025-03-19] MEDS ORDERED: methylPREDNISolone 10 mg/mL (For Ped Dose < 7mg) IV SCH (18:00)
[2025-03-19] MEDS: methylPREDNISolone 40 MG in SYRINGE 0 ML IV SCH (18:30)
[2025-03-19] MEDS ORDERED: BUDESONIDE 0.5 MG/2 ML VIAL (PULMICORT) INH SCH (19:00)
[2025-03-19] MEDS ORDERED: CARBOHYDRATES FOR HYPOGLYCEMIA PO PRN (20:00)
[2025-03-19] MEDS ORDERED: GLUCOSE 10 TAB/TUBE PO PRN (20:00)
[2025-03-19] MEDS ORDERED: GLUCAGON FOR INJ 1 MG VIAL SQ PRN (20:00)
[2025-03-19] MEDS ORDERED: DEXTROSE 50% 50 ML SYRINGE IV PRN (20:00)
[2025-03-19] MEDS ORDERED: GLUCOSE 40% GEL 15 GM TUBE PO PRN (20:00)
[2025-03-19] MEDS: traZODone HCL 100 MG TAB PO SCH (20:56)
[2025-03-19] MEDS: PANTOprazole 40 MG TAB PO SCH (20:56)
[2025-03-19] MEDS: DULoxetine HCL 30 MG CAP PO SCH (20:57)
[2025-03-19] MEDS: CHOLECALCIFEROL 25 MCG (1000 UNITS) TAB PO SCH (20:57)
[2025-03-19] MEDS: levETIRAcetam 500 MG TAB PO SCH (20:57)
[2025-03-19] MEDS: METOPROLOL SUCC 25MG EXT REL TAB PO SCH (20:57)
[2025-03-19] MEDS: MIRTAZAPINE TAB 15 MG TAB PO SCH (20:58)
[2025-03-19] MEDS: DESMOPRESSIN ACETATE 0.1 MG TAB PO SCH (20:58)
[2025-03-19] MEDS: LITHIUM CARBONATE 300 MG TAB PO SCH (20:59)
[2025-03-19] MEDS: PRAZOSIN HCL 1 MG CAP PO SCH (20:59)
[2025-03-19] MEDS: DOXYCYCLINE HYCLATE 100 MG CAP PO SCH (20:59)
[2025-03-19] MEDS ORDERED: ARFORMOTEROL TART 15MCG/2ML VIAL INH SCH (21:00)
[2025-03-19] MEDS: LACOSAMIDE 50 MG TABLET PO SCH (21:13)
[2025-03-19] MEDS: LANTUS PER UNIT CHARGE SC SCH (21:13)
[2025-03-19] MEDS: BUDESONIDE 0.5 MG/2 ML VIAL (PULMICORT) NEB SCH (21:22)
[2025-03-19] MEDS: ALBUT/IPRATROP 3MG/0.5MG NEB 3 ML VIAL INH SCH (21:22)
[2025-03-19] MEDS: FORMOTEROL 20 MCG/2 ML VIAL NEB SCH (21:23)
[2025-03-19] MEDS: SODIUM CHLOR 7% 4 ML NEB NEB SCH (21:23)
[2025-03-19] MEDS ORDERED: methylPREDNISolone 125 MG/2 ML VIAL IV SCH (22:00)
--- NOTE | 2025-03-20 03:13 | CT Scan Report ---
Exam(s): CT ABDOMEN + PELVIS Without Contrast EXAM: CT Abdomen and Pelvis Without Intravenous Contrast CLINICAL HISTORY: Reason for exam: abd bloating, sepsis, elevated lactate. TECHNIQUE: Axial computed tomography images of the abdomen and pelvis without intravenous contrast. CTDI is 28.14 mGy and DLP is 1549.61 mGy-cm. Automated exposure control was utilized for the study. A dose lowering technique was utilized adhering to the principles of ALARA. COMPARISON: CT abdomen pelvis April 06, 2024. FINDINGS: ABDOMEN: Liver: Unremarkable. Gallbladder and bile ducts: Unremarkable. No calcified stones. No ductal dilation. Pancreas: Unremarkable. No ductal dilation. Spleen: Unremarkable. No splenomegaly. Adrenals: Unremarkable. No mass. Kidneys and ureters: Nonobstructing calculus in the right renal pelvis measuring 8 x 5 x 7 mm. Smaller nonobstructing calculus in the right kidney. No hydronephrosis. No ureteral calculus. Stomach and bowel: Unremarkable. No obstruction. No mucosal thickening. PELVIS: Appendix: No findings to suggest acute appendicitis. Bladder: Unremarkable. No stones. ABDOMEN and PELVIS: Intraperitoneal space: Unremarkable. No free air. No significant fluid collection. Bones/joints: L5 laminectomy. Anterior and posterior fusion at L5/S1. No acute bone abnormality. Soft tissues: Unremarkable. Vasculature: Unremarkable. No abdominal aortic aneurysm. Lymph nodes: Unremarkable. No enlarged lymph nodes. IMPRESSION: No acute findings in the abdomen or pelvis. Electronically signed by: Deshaun Unger MD 03/20/25 02:20 AM
--- NOTE | 2025-03-20 06:02 | Ultrasound Report ---
EXAM: US venous doppler LE CLINICAL HISTORY: r/o DVT. TECHNIQUE: Ultrasound examination of bilateral lower extremity veins was performed in real time and duplex. One or more of the following were performed- spectral analysis, resistive index, waveform analysis, and pulsed Doppler. COMPARISON: None. FINDINGS: Normal phasic, non-pulsatile and spontaneous flow is noted in bilateral GSV, common femoral, superficial femoral, popliteal, anterior tibial, posterior tibial and peroneal veins. Visualized veins of both lower extremities demonstrate normal compressibility. No sonographic evidence of acute deep vein thrombosis (DVT) is detected in the visualized veins of both lower extremities. Compression and Augmentation: All evaluated veins compress fully with applied transducer pressure. Augmentation of venous flow is noted with distal compression. Additional Findings: No evidence of intraluminal thrombus. IMPRESSION: No sonographic evidence of acute DVT detected in bilateral lower extremity veins, at the time of examination. Disclaimer: DVT could be missed early in the disease when clot burden is minimal. For patients with moderate and high pretest probability of DVT and negative ultrasound, the [employer] clinical guidelines recommend testing with a D-dimer assay or repeat ultrasound in 5-7 days. If symptoms worsen, the Society of radiologists in ultrasound recommends repeating ultrasound even earlier. Electronically signed by Ren Madrid 03-20-2025 06:01 AM
[2025-03-20 06:06] LABS: Hematocrit (blood only) 37.4 % (42.0-52.0); Hemoglobin 12.5 g/dl (14.0-18.0); Mean Corpuscular Hemoglobin 29.1 pg (25.0-34.0); Mean Corpuscular Hgb Conc 33.4 g/dL (32.0-36.0); Mean Platelet Volume 8.8 fL (9.4-12.4); Platelet Count 164 K/uL (130-400); RDW Coefficient of Variation 14.8 % (11.5-14.5); RDW Standard Deviation 46.8 fL (36.4-46.3); White Blood Count 19.77 K/ul (4.8-10.8)
[2025-03-20 06:22] LABS: BUN Creatinine Ratio 22.4 (10-20); Calcium 8.9 mg/dl (8.6-10.3); Creatinine Clr Calc Pharmacy 158.8 ml/min; Magnesium 1.6 mg/dl (1.7-2.4); Potassium 4.1 mmol/L (3.5-5.1)
[2025-03-20] MEDS ORDERED: LEVOTHYROXINE SODIUM 200 MCG TABLET PO SCH (06:30)
[2025-03-20] MEDS: POTASSIUM CHLORIDE 10 MEQ TABCR PO SCH (08:34)
[2025-03-20] MEDS: FAMOTIDINE 20 MG TAB PO SCH (08:34)
[2025-03-20] MEDS: UMECLIDINIUM BROMIDE 62.5MCG/BLISTER 7 PUFFS/INHALER INH SCH (08:36)
[2025-03-20] MEDS: PROPRANOLOL HCL 60 MG LA CAP PO SCH (08:37)
[2025-03-20] MEDS: DIVALPROEX DELAY RELEASE 500 MG TAB PO SCH (08:41)
[2025-03-20] MEDS: FINASTERIDE 5 MG TAB PO SCH (08:41)
[2025-03-20] MEDS: DULoxetine HCL 60 MG CAP PO SCH (08:42)
[2025-03-20] MEDS: QUEtiapine FUMARATE 50 MG TABCR PO SCH (08:42)
[2025-03-20] MEDS: MAGNESIUM OXIDE 400 MG TAB PO SCH (08:42)
[2025-03-20] MEDS: VENLAFAXINE HCL XR 150 MG CAPXR PO SCH (08:42)
[2025-03-20] MEDS: ARIPiprazole 5 MG TAB PO SCH (08:43)
[2025-03-20] MEDS: ASPIRIN 81 MG ECTAB PO SCH (08:43)
[2025-03-20] MEDS: POLYETHYLENE (MIRALAX) 17 GM PACK PO SCH (08:44)
[2025-03-20] MEDS: CLOPIDOGREL BISULFATE 75 MG TAB PO SCH (08:44)
[2025-03-20] MEDS: ROSUVASTATIN CALCIUM 20 MG TAB PO SCH (08:44)
[2025-03-20] MEDS: ENOXAPARIN INJ 40 MG/0.4 ML SYR SQ SCH (08:45)
[2025-03-20] MEDS: lisinopril 40 MG TAB PO SCH (09:30)
--- NOTE | 2025-03-20 09:39 | Hospitalist Progress Note ---
Date of Service March 20, 2025 Assessment & Plan (1) Acute on chronic hypoxic respiratory failure: Plan: -likely 2nd to COPD exacerbation -con't steroids -nebs -Incruse added as per pulmonary consultation -RAST panel (2) COPD with exacerbation: Plan: -con't has above (3) Uncontrolled type 2 diabetes mellitus with hyperglycemia: Plan: novolog SSI - 35 CF, carb rato 1:12, adjust as needed (4) Bipolar disorder: Plan: -cont lithium, depakote, aripiprazole, cymbalta, remeron, seroquel , trazodone, venlafaxine (5) Pituitary hypothyroidism: Plan: -free T4 is elevated at 3.5 which would suggest iatrogenic hyperthyroidism -will send message to his primary sales coordinator Dr Voss -hold levothyroixine in meantime (6) Pituitary hypogonadism: (7) Secondary adrenal insufficiency: Plan: -typically on 20mg qam and 10mg qafternoon of Hydrocortisone -last 3-4 weeks has been using 40mg in the am and 20mg in the afternoon -was given IV Hydrocortisone by the ER attending -hold further hydrocortisone for now as he will be getting copious steroids in the form of solumedrol 40mg q8h for his severe COPD flare (8) Presence of Watchman left atrial appendage closure device: (9) Seizure disorder: Plan: -cont keppra 1gm BID -cont lacosamide 150mg BID -depakote 1gm daily (this may be for bipolar, however) (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 due to dehydration? intra-abdominal process given his c/o abdominal fullness/bloating/etc? metformin? other? -was given 500cc bolus of fluid prior to my assessment; will give 2nd bolus of 1 liter now -hold bumex -hold metformin (13) BPH with obstruction/lower urinary tract symptoms: Plan: -cont finasteride -cont prazosin 2mg TID (14) Chronic narcotic dependence: Plan: checked PDMP - indeed he is on norco 7.5's QID -cont such -needs bowel regimen Plan 54yo male with panhypopituitarism, chronic resp failue on home O2 3-4 L NC o2, recent hospitalization [facility] February 23- for pneumonia/COPD, T2DM, bipolar disorder, seizure disorder, status epilepticus requiring intubation at [facility] fall of 2023), central hypothyroidism, secondary adrenal insufficiency on hydrocortisone, BPH, bipolar disorder, migraines, CORINA on CPAP, PAF with Watchman Device, and chronic narcotic dependence (norco q6h every day). Presenting with severe dyspnea, SCOTT, wheezing, cough, abdominal bloating, and decreased PO intake. Following his admission at [facility] in February his baseline NC O2 requirement was increased from 3 L continuously to 4 L continuously. Today he was switched to BIPAP shortly after arrival here due to significant dyspnea and increased work of breathing as reported by the ER attending. Admission and Anticipated Discharge Date Admission Date: March 19, 2025 Subjective No events overnight. Pt resting comfortable, states his breathing has remained the same with not much improvment. Review of Systems Review of Systems: CONST: Negative for fever, body aches and chills. HENT: Negative for neck pain/stiffness, headache, congestion, sore throat, swelling. EYES: Negative for discharge/pain or vision changes. RESP: Negative for cough/hemoptysis and shortness of breath. CV: Negative chest pain, difficulty breathing, palpitations. ABD: Negative pain, nausea, vomiting. : Negative increase frequency, dysuria, blood in urine or stool. MUSC: Negative for muscle aches, edema. SKIN: Negative rash, lesions/sores. NEURO: Negative headache, dizziness, weakness. Physical Exam Physical Exam: GENERAL APPEARANCE NAD, activity normal for age, well developed/ well nourished, no cyanosis, pallor, or diaphoresis. EYES lids/conjunctiva normal. EARS/NOSE/THROAT Mucous membranes moist, nares normal, lips/teeth normal uvula midline without oral pharyngeal erythema, exudate or swelling TMs normal bilaterally. No lymphangitis/lymphedema. HEAD/NECK normocephalic atraumatic, no facial trauma, neck is supple. RESPIRATORY respiratory effort normal, speaks in full sentences, no tripod position, no accessory muscle use. Lungs clear to auscultation without rhonchi, wheezes, rales CARDIAC Regular rate and rhythm, no edema. ABDOMINAL Soft, ND/NT. No evidence of fluid wave. No pulsatile masses on exam, rebound tenderness, Moore sign or pain over Mcburney's point. MUSCLES/EXTREMITIES No abnormal range of motion, no swelling. SKIN Warm, pink and dry. No rashes, dermatoses, petechiae or lesions. NEUROLOGICAL Speech is clear and appropriate. Normal level of consciousness. Gait and coordination are normal. 5/5 strength in all extremities. PSYCH Normal mood and affect. Judgement/competence is appropriate Results & Data Results & Data Vital Signs (Past 12 Hours) Vital Signs Temp Pulse Pulse Resp BP Pulse Ox O2 Del Method 03/20/25 07:12 36.5 C 95 H 16 190/114 H 99 Oxymask 03/20/25 07:00 97 H 18 97 Nasal Cannula 03/20/25 04:02 110 H 22 98 03/20/25 03:14 36.4 C L 96 H 26 H 150/90 H 98 Nasal Cannula 03/20/25 01:49 102 H 22 98 03/19/25 23:53 108 H 03/19/25 23:29 Nasal Cannula, BiPAP 03/19/25 22:58 36.4 C L 107 H 24 140/76 95 Nasal Cannula O2 Flow Rate FiO2 03/20/25 07:12 8 03/20/25 07:00 4 03/20/25 04:02 36 03/20/25 03:14 03/20/25 01:49 36 03/19/25 23:53 03/19/25 23:29 4 03/19/25 22:58 PG Care Time/CCT Total # of Minutes Spent Total Time Spent with Patient: Total time spent is greater than 50% in coordination of care (as documented) at patient's floor/unit and/or counseling patient: Coding Level of Care Code 13483 SUB INP/OBS CARE 2/35MIN Diagnoses Acute on chronic hypoxic respiratory failure J96.21 COPD with exacerbation J44.1 Uncontrolled type 2 diabetes mellitus with hyperglycemia E11.65 Bipolar disorder F31.9 Pituitary hypothyroidism E03.8 Pituitary hypogonadism E23.0 Secondary adrenal insufficiency E27.49 Presence of Watchman left atrial appendage closure device Z95.818 Seizure disorder G40.909 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
--- NOTE | 2025-03-20 10:27 | Pulmonology Progress Note ---
Date of Service March 20, 2025 Assessment & Plan (1) Acute asthma exacerbation: (2) Anti-cyclic citrullinated peptide antibody positive: (3) Restrictive lung disease: (4) Acute on chronic hypoxic respiratory failure: (5) Abnormal PFTs (pulmonary function tests): (6) Pituitary hypogonadism: (7) Obstructive sleep apnea: Plan CT chest 10/24/2024 personally reviewed: 3 mm upper lobe pulmonary nodule Linear atelectasis bilateral lower lobes, more on the right side Minimal subcarinal mediastinal lymphadenopathy PFT 12/04/2024 personally reviewed: Moderate to severe restrictive lung dysfunction, mild decrease in TLC, air trapping, significant bronchodilator response, mild decrease in DLCO FVC 2.26 L 46%, FEV1 1.76 L 46%, FEV1/FVC 78%, RV 95%, ERV 1%, TLC 73%, RV/TLC 127%, DLCO 71%, DLCO/VA 125% 2D echo 10/24/2024: EF 60-65%, RV normal in size and function --Acute hypoxic respiratory failure secondary to acute asthma exacerbation On budesonide and Brovana at home Doppler bilateral lower extremity negative for DVT on 03/19/2025 Respiratory BioFire negative for everything on 03/19/2025 Procalcitonin negative BNP 124 CT chest from [facility] 02/23/2025 did show dense consolidative process appreciated bilateral lower lobes more on the left side -- Exertional shortness of breath Multifactorial Worked in [employer] no clear evidence of pneumoconiosis or interstitial lung disease Strong family history of asthma History of A-fib/HFpEF BMI 37 Does complain of Raynaud's, morning joint stiffness. Dry mouth Denies any dry eyes. No difficulty swallowing Labs 08/10/2024: Negative HEBER, rheumatoid factor negative but anti-CCP positive --Restrictive lung disease FVC 46%, TLC 73%, ERV 1%, DLCO 71% Likely from BMI of 37 Weight loss and incentive spirometry will be beneficial --Severe CORINA Polysomnography 07/04/2024: AHI 45.2, average oxygen 88% Using auto CPAP at home, following up with [place] --Chewing tobacco Advised to quit --Obesity Advised to lose weight diet and exercise --History of A-fib S/p Watchman device Not on any anticoagulation --Panhypopituitarism On desmopressin 0.4 and hydrocortisone 20 mg in the morning and 10 mg in the afternoon --Morning stiffness lasting more than 30 minutes Anti-CCP positive, rheumatoid factor negative Plan: I was able to look at the images from [facility] personally. CT chest from [facility] 02/23/2025 personally reviewed: Dense consolidative process appreciated bilateral lower lobes more on the left side They have resolved on the CAT scan when he presented during this admission. The patient is still wheezing but it has improved from before. He has significant upper airway wheeze and rhonchi. Continue with steroids, nebulized bronchodilators and Incruse Continue with 7% hypertonic saline, I am going to add Mucomyst nebulized to the regimen Follow-up RAST panel along with IgE Doppler lower extremity negative Patient does have allergy to contrast. VQ scan could be thought of if need be in future Case was discussed with primary team as well as RN at bedside Please note the above document was generated using voice recognition software. It may contain grammatical, syntax or spelling errors.Any formal questions or concerns about the content, text or information contained within the body of this dictation should be directly addressed to the provider for clarification. Admission and Anticipated Discharge Date Admission Date: March 19, 2025 Subjective Patient seen and examined at bedside. No acute distress, no adverse events overnight. He was saturating 96% on 4 L nasal cannula, I went down to 2 L. He is saying he is feeling a little bit better compared to before but still complaining of cough and having difficulty bringing up the phlegm No chest pain Fair appetite No nausea vomiting No unusual headache Review of Systems 2 Review of Systems: All systems reviewed & are unremarkable except as noted in Subjective Physical Exam 2 Physical Exam: Constitutional: No acute distress HEENT: EOMI, PERRLA, short thick neck Respiratory system: Decreased air entry bilaterally, minimal expiratory wheeze bilaterally, improved from yesterday, mild rhonchi, no crackles CVS: S1-S2 positive, no murmurs or gallops Abdomen: Soft, nontender, nondistended, positive bowel sounds x4, obese Extremities: +2 pulses bilaterally radialis/ dorsalis pedis, no cyanosis, no edema Neuro: Awake alert oriented x3 Psych: Normal mood and affect G/U: No [place] Skin: no rashes, warm and dry Lymphatic: no cervical or axillary lymphadenopathy Results & Data Results & Data Vital Signs (Past 12 Hours) Vital Signs Temp Pulse Pulse Resp BP Pulse Ox O2 Del Method 03/20/25 09:49 Nasal Cannula 03/20/25 07:12 36.5 C 95 H 16 190/114 H 99 Oxymask 03/20/25 07:00 97 H 18 97 Nasal Cannula 03/20/25 04:02 110 H 22 98 03/20/25 03:14 36.4 C L 96 H 26 H 150/90 H 98 Nasal Cannula 03/20/25 01:49 102 H 22 98 03/19/25 23:53 108 H 03/19/25 23:29 Nasal Cannula, BiPAP 03/19/25 22:58 36.4 C L 107 H 24 140/76 95 Nasal Cannula O2 Flow Rate FiO2 03/20/25 09:49 4 03/20/25 07:12 8 03/20/25 07:00 4 03/20/25 04:02 36 03/20/25 03:14 03/20/25 01:49 36 03/19/25 23:53 03/19/25 23:29 4 03/19/25 22:58 Laboratory Results 03/20/25 05:32 03/20/25 05:32 PG Care Time/CCT Total # of Minutes Spent Total Time Spent with Patient: Total time spent is greater than 50% in coordination of care (as documented) at patient's floor/unit and/or counseling patient: Coding Level of Care Code 91798 SUB INP/OBS CARE 3/50MIN Diagnoses Acute asthma exacerbation J45.901 Anti-cyclic citrullinated peptide antibody positive R76.8 Restrictive lung disease J98.4 Acute on chronic hypoxic respiratory failure J96.21 Abnormal PFTs (pulmonary function tests) R94.2 Pituitary hypogonadism E23.0 Obstructive sleep apnea G47.33
[2025-03-20] MEDS: ACETYLCYSTEINE 20% INHAL SOLN 4ML ***DISPENSED BY RESP. INH SCH (19:57)
[2025-03-21] MEDS: LEVOTHYROXINE SODIUM 150 MCG TABLET PO SCH (05:36)
[2025-03-21 06:15] LABS: Hematocrit (blood only) 35.9 % (42.0-52.0); Hemoglobin 12.1 g/dl (14.0-18.0); Mean Corpuscular Hemoglobin 29.1 pg (25.0-34.0); Mean Corpuscular Hgb Conc 33.7 g/dL (32.0-36.0); Mean Corpuscular Volume 86.3 fL (80.0-100.0); Mean Platelet Volume 8.4 fL (9.4-12.4); Platelet Count 147 K/uL (130-400); RDW Coefficient of Variation 14.9 % (11.5-14.5); Red Blood Count 4.16 M/uL (4.70-6.10); White Blood Count 16.91 K/ul (4.8-10.8)
[2025-03-21 06:29] LABS: Creatinine Clr Calc Pharmacy 142.8 ml/min; Potassium 4.3 mmol/L (3.5-5.1)
--- NOTE | 2025-03-21 09:33 | Electrocardiogram Report ---
Test Reason : Blood Pressure : */* mmHG Vent. Rate : 114 BPM Atrial Rate : 114 BPM P-R Int : 156 ms QRS Dur : 88 ms QT Int : 334 ms P-R-T Axes : 63 1 59 degrees QTcB Int : 460 ms Sinus tachycardia Otherwise normal ECG When compared with ECG of 27-Jan-2025 18:44, No significant change was found Confirmed by Vitor Zamudio ([id number]) on 03/21/2025 9:33:26 AM Referred By: Confirmed By: Vitor Zamudio
--- NOTE | 2025-03-21 10:03 | Hospitalist Progress Note ---
Date of Service March 21, 2025 Assessment & Plan (1) Acute on chronic hypoxic respiratory failure: Plan: -likely 2nd to COPD exacerbation -con't steroids -nebs -Incruse added as per pulmonary consultation -RAST panel -CTA negative for PE (2) COPD with exacerbation: Plan: -con't has above (3) Uncontrolled type 2 diabetes mellitus with hyperglycemia: Plan: novolog SSI - 35 CF, carb rato 1:12, adjust as needed (4) Bipolar disorder: Plan: -cont lithium, depakote, aripiprazole, cymbalta, remeron, seroquel , trazodone, venlafaxine (5) Pituitary hypothyroidism: Plan: -free T4 is elevated at 3.5 which would suggest iatrogenic hyperthyroidism -will send message to his primary [employer] agent Dr Voss -hold levothyroixine in meantime (6) Pituitary hypogonadism: (7) Secondary adrenal insufficiency: Plan: -typically on 20mg qam and 10mg qafternoon of Hydrocortisone -last 3-4 weeks has been using 40mg in the am and 20mg in the afternoon -was given IV Hydrocortisone by the ER attending -hold further hydrocortisone for now as he will be getting copious steroids in the form of solumedrol 40mg q8h for his severe COPD flare (8) Presence of Watchman left atrial appendage closure device: (9) Seizure disorder: Plan: -cont keppra 1gm BID -cont lacosamide 150mg BID -depakote 1gm daily (this may be for bipolar, however) (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 due to dehydration? intra-abdominal process given his c/o abdominal fullness/bloating/etc? metformin? other? -was given 500cc bolus of fluid prior to my assessment; will give 2nd bolus of 1 liter now -hold bumex -hold metformin (13) BPH with obstruction/lower urinary tract symptoms: Plan: -cont finasteride -cont prazosin 2mg TID (14) Chronic narcotic dependence: Plan: checked PDMP - indeed he is on norco 7.5's QID -cont such -needs bowel regimen Plan 54yo male with panhypopituitarism, chronic resp failue on home O2 3-4 L NC o2, recent hospitalization [facility] February 23- for pneumonia/COPD, T2DM, bipolar disorder, seizure disorder, status epilepticus requiring intubation at [facility] fall of 2023), central hypothyroidism, secondary adrenal insufficiency on hydrocortisone, BPH, bipolar disorder, migraines, CORINA on CPAP, PAF with Watchman Device, and chronic narcotic dependence (norco q6h every day). Presenting with severe dyspnea, SCOTT, wheezing, cough, abdominal bloating, and decreased PO intake. Following his admission at [facility] in February his baseline NC O2 requirement was increased from 3 L continuously to 4 L continuously. Today he was switched to BIPAP shortly after arrival here due to significant dyspnea and increased work of breathing as reported by the ER attending. Admission and Anticipated Discharge Date Admission Date: March 19, 2025 Subjective No events overnight, pt states his bleeding has slightly improved. Review of Systems Review of Systems: CONST: Negative for fever, body aches and chills. HENT: Negative for neck pain/stiffness, headache, congestion, sore throat, swelling. EYES: Negative for discharge/pain or vision changes. RESP: Negative for cough/hemoptysis and shortness of breath. CV: Negative chest pain, difficulty breathing, palpitations. ABD: Negative pain, nausea, vomiting. : Negative increase frequency, dysuria, blood in urine or stool. MUSC: Negative for muscle aches, edema. SKIN: Negative rash, lesions/sores. NEURO: Negative headache, dizziness, weakness. Physical Exam Physical Exam: GENERAL APPEARANCE NAD, activity normal for age, well developed/ well nourished, no cyanosis, pallor, or diaphoresis. EYES lids/conjunctiva normal. EARS/NOSE/THROAT Mucous membranes moist, nares normal, lips/teeth normal uvula midline without oral pharyngeal erythema, exudate or swelling TMs normal bilaterally. No lymphangitis/lymphedema. HEAD/NECK normocephalic atraumatic, no facial trauma, neck is supple. RESPIRATORY respiratory effort normal, speaks in full sentences, no tripod position, no accessory muscle use. Lungs clear to auscultation without rhonchi, wheezes, rales CARDIAC Regular rate and rhythm, no edema. ABDOMINAL Soft, ND/NT. No evidence of fluid wave. No pulsatile masses on exam, rebound tenderness, Moore sign or pain over Mcburney's point. MUSCLES/EXTREMITIES No abnormal range of motion, no swelling. SKIN Warm, pink and dry. No rashes, dermatoses, petechiae or lesions. NEUROLOGICAL Speech is clear and appropriate. Normal level of consciousness. Gait and coordination are normal. 5/5 strength in all extremities. PSYCH Normal mood and affect. Judgement/competence is appropriate Results & Data Results & Data Vital Signs (Past 12 Hours) Vital Signs Temp Pulse Pulse Resp BP BP Pulse Ox 03/21/25 09:32 86 03/21/25 09:32 03/21/25 07:17 36.6 C 86 18 176/98 H 98 03/21/25 07:07 90 18 95 03/21/25 03:23 36.8 C 84 19 158/97 H 97 03/21/25 02:23 86 20 97 03/20/25 23:38 92 H 22 99 03/20/25 23:13 03/20/25 23:11 95 H 03/20/25 23:09 36.8 C 93 H 20 158/84 H 95 O2 Del Method O2 Flow Rate FiO2 03/21/25 09:32 03/21/25 09:32 Nasal Cannula 2 03/21/25 07:17 Nasal Cannula 4 03/21/25 07:07 Nasal Cannula 2 03/21/25 03:23 BiPAP 03/21/25 02:23 36 03/20/25 23:38 36 03/20/25 23:13 Nasal Cannula, BiPAP 2 03/20/25 23:11 03/20/25 23:09 Nasal Cannula PG Care Time/CCT Total # of Minutes Spent Total Time Spent with Patient: Total time spent is greater than 50% in coordination of care (as documented) at patient's floor/unit and/or counseling patient: Coding Level of Care Code 79031 SUB INP/OBS CARE 235MIN Diagnoses Acute on chronic hypoxic respiratory failure J96.21 COPD with exacerbation J44.1 Uncontrolled type 2 diabetes mellitus with hyperglycemia E11.65 Bipolar disorder F31.9 Pituitary hypothyroidism E03.8 Pituitary hypogonadism E23.0 Secondary adrenal insufficiency E27.49 Presence of Watchman left atrial appendage closure device Z95.818 Seizure disorder G40.909 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
--- NOTE | 2025-03-21 10:20 | Pulmonology Progress Note ---
Date of Service March 21, 2025 Assessment & Plan (1) Acute asthma exacerbation: (2) Anti-cyclic citrullinated peptide antibody positive: (3) Restrictive lung disease: (4) Acute on chronic hypoxic respiratory failure: (5) Abnormal PFTs (pulmonary function tests): (6) Pituitary hypogonadism: (7) Obstructive sleep apnea: Plan CT chest 10/24/2024 personally reviewed: 3 mm upper lobe pulmonary nodule Linear atelectasis bilateral lower lobes, more on the right side Minimal subcarinal mediastinal lymphadenopathy PFT 12/04/2024 personally reviewed: Moderate to severe restrictive lung dysfunction, mild decrease in TLC, air trapping, significant bronchodilator response, mild decrease in DLCO FVC 2.26 L 46%, FEV1 1.76 L 46%, FEV1/FVC 78%, RV 95%, ERV 1%, TLC 73%, RV/TLC 127%, DLCO 71%, DLCO/VA 125% 2D echo 10/24/2024: EF 60-65%, RV normal in size and function --Acute hypoxic respiratory failure secondary to acute asthma exacerbation On budesonide and Brovana at home Doppler bilateral lower extremity negative for DVT on 03/19/2025 Respiratory BioFire negative for everything on 03/19/2025 Procalcitonin negative BNP 124 CT chest from [facility] 02/23/2025 did show dense consolidative process appreciated bilateral lower lobes more on the left side -- Exertional shortness of breath 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 Dry mouth Denies any dry eyes. No difficulty swallowing Labs 08/10/2024: Negative HEBER, rheumatoid factor negative but anti-CCP positive --Restrictive lung disease FVC 46%, TLC 73%, ERV 1%, DLCO 71% Likely from BMI of 37 Weight loss and incentive spirometry will be beneficial --Severe CORINA Polysomnography 07/04/2024: AHI 45.2, average oxygen 88% Using auto CPAP at home, following up with [place] --Chewing tobacco Advised to quit --Obesity Advised to lose weight diet and exercise --History of A-fib S/p Watchman device Not on any anticoagulation --Panhypopituitarism On desmopressin 0.4 and hydrocortisone 20 mg in the morning and 10 mg in the afternoon --Morning stiffness lasting more than 30 minutes Anti-CCP positive, rheumatoid factor negative Plan: Decrease Solu-Medrol to 40 mg twice daily Continue with nebulized bronchodilators and Incruse while in the hospital Continue with 7% hypertonic saline and Mucomyst nebulized along with flutter valve On discharge recommend adding either Incruse or Spiriva to his nebulized medications at home Follow-up RAST panel along with IgE Patient does have allergy to contrast. VQ scan could be thought of if need be in future Case was discussed with primary team as well as RN at bedside Please note the above document was generated using voice recognition software. It may contain grammatical, syntax or spelling errors.Any formal questions or concerns about the content, text or information contained within the body of this dictation should be directly addressed to the provider for clarification. Admission and Anticipated Discharge Date Admission Date: March 19, 2025 Subjective Patient seen and examined at bedside. No acute distress, no adverse events overnight He says he is feeling better when it comes to his breathing Coughing up clear phlegm Was able to tolerate nebulized Mucomyst on top of 7% saline Was saturating 98% on 2 L, I have put him on room air Fair appetite, no nausea or vomiting Denies any headache Review of Systems 2 Review of Systems: All systems reviewed & are unremarkable except as noted in Subjective Physical Exam 2 Physical Exam: Constitutional: No acute distress HEENT: EOMI, PERRLA, short thick neck Respiratory system: Decreased air entry bilaterally, no wheezing, no rhonchi, no crackles CVS: S1-S2 positive, no murmurs or gallops Abdomen: Soft, nontender, nondistended, positive bowel sounds x4, obese Extremities: +2 pulses bilaterally radialis/ dorsalis pedis, no cyanosis, no edema Neuro: Awake alert oriented x3 Psych: Normal mood and affect G/U: No Welsh Skin: no rashes, warm and dry Lymphatic: no cervical or axillary lymphadenopathy Results & Data Results & Data Vital Signs (Past 12 Hours) Vital Signs Temp Pulse Pulse Resp BP BP Pulse Ox 03/21/25 09:32 86 03/21/25 09:32 03/21/25 07:17 36.6 C 86 18 176/98 H 98 03/21/25 07:07 90 18 95 03/21/25 03:23 36.8 C 84 19 158/97 H 97 03/21/25 02:23 86 20 97 03/20/25 23:38 92 H 22 99 03/20/25 23:13 03/20/25 23:11 95 H 03/20/25 23:09 36.8 C 93 H 20 158/84 H 95 O2 Del Method O2 Flow Rate FiO2 03/21/25 09:32 03/21/25 09:32 Nasal Cannula 2 03/21/25 07:17 Nasal Cannula 4 03/21/25 07:07 Nasal Cannula 2 03/21/25 03:23 BiPAP 03/21/25 02:23 36 03/20/25 23:38 36 03/20/25 23:13 Nasal Cannula, BiPAP 2 03/20/25 23:11 03/20/25 23:09 Nasal Cannula Laboratory Results 03/21/25 05:43 03/21/25 05:43 PG Care Time/CCT Total # of Minutes Spent Total Time Spent with Patient: Total time spent is greater than 50% in coordination of care (as documented) at patient's floor/unit and/or counseling patient: Coding Level of Care Code 75017 SUB INP/OBS CARE 235MIN Diagnoses Acute asthma exacerbation J45.901 Anti-cyclic citrullinated peptide antibody positive R76.8 Restrictive lung disease J98.4 Acute on chronic hypoxic respiratory failure J96.21 Abnormal PFTs (pulmonary function tests) R94.2 Pituitary hypogonadism E23.0 Obstructive sleep apnea G47.33
[2025-03-21] MEDS: bisacodyL 5 MG TABEC PO ONE (12:02)
[2025-03-21 17:07] LABS: Alternaria Class 2; Ash (White) Class 0; Ash (White) IgE <0.10 kU/L; Asperg Fumig Class 0; Asperg Fumig IgE <0.10 kU/L; Bermuda Grass Class 0; Bermuda Grass IgE <0.10 kU/L; Birch Class 0; Cat Dander Class 0; Cat Dander IgE <0.10 kU/L; Cladosporium IgE <0.10 kU/L; Cladosporium her Class 0; Cockroach Allergen Class 0; Cockroach IgE Ab <0.10 kU/L; Cottonwood Class 0; Cottonwood IgE <0.10 kU/L; D. farinae Class 0; D. farinae IgE <0.10 kU/L; D. pteronyssinus Class 0; D. pteronyssinus IgE <0.10 kU/L; Dog Dander Class 0; Elm Class 0; Elm IgE <0.10 kU/L; Immunoglobulin IgE 3 kU/L (<OR=114); Maple (Box Elder) IgE <0.10 kU/L; Maple Class 0; Mountain Cedar Class 0; Mountain Cedar IgE <0.10 kU/L; Mouse Urine Protein Class 0; Mouse Urine Protein IgE <0.10 kU/L; Mugwort (W6) IgE <0.10 kU/L; Mugwort Class 0; Oak-White Class 0; Oak-White IgE <0.10 kU/L; Penic Notatum Class 0; Rough Pigweed Class 0; Rough Pigweed IgE <0.10 kU/L; Sheep Sorrel Class 0; Sheep Sorrel IgE <0.10 kU/L; Short Ragweed Class 0; Short Ragweed IgE <0.10 kU/L; Sycamore Class 0; Sycamore IgE <0.10 kU/L; Timothy Class 0; Timothy IgE <0.10 kU/L; Walnut Tree Class 0; Walnut Tree IgE <0.10 kU/L; White Mulberry Class 0; White Mulberry IgE <0.10 kU/L
[2025-03-21] MEDS: bisacodyL 5 MG TABEC PO SCH (21:41)
[2025-03-21] MEDS: methylPREDNISolone 40 MG in SYRINGE 0 ML IV SCH (21:42)
[2025-03-22] MEDS: hydrALAZINE HCL 20 MG/ML VIAL IV ONE (04:25)
--- NOTE | 2025-03-22 07:04 | Pulmonology Progress Note ---
Date of Service March 22, 2025 Assessment & Plan (1) Acute asthma exacerbation: (2) Anti-cyclic citrullinated peptide antibody positive: (3) Restrictive lung disease: (4) Acute on chronic hypoxic respiratory failure: (5) Abnormal PFTs (pulmonary function tests): (6) Pituitary hypogonadism: (7) Obstructive sleep apnea: Plan CT chest 10/24/2024 personally reviewed: 3 mm upper lobe pulmonary nodule Linear atelectasis bilateral lower lobes, more on the right side Minimal subcarinal mediastinal lymphadenopathy PFT 12/04/2024 personally reviewed: Moderate to severe restrictive lung dysfunction, mild decrease in TLC, air trapping, significant bronchodilator response, mild decrease in DLCO FVC 2.26 L 46%, FEV1 1.76 L 46%, FEV1/FVC 78%, RV 95%, ERV 1%, TLC 73%, RV/TLC 127%, DLCO 71%, DLCO/VA 125% 2D echo 10/24/2024: EF 60-65%, RV normal in size and function --Acute hypoxic respiratory failure secondary to acute asthma exacerbation On budesonide and Brovana at home Doppler bilateral lower extremity negative for DVT on 03/19/2025 Respiratory BioFire negative for everything on 03/19/2025 Procalcitonin negative BNP 124 CT chest from [facility] 02/23/2025 did show dense consolidative process appreciated bilateral lower lobes more on the left side -- Exertional shortness of breath 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 Dry mouth Denies any dry eyes. No difficulty swallowing Labs 08/10/2024: Negative HEBER, rheumatoid factor negative but anti-CCP positive --Restrictive lung disease FVC 46%, TLC 73%, ERV 1%, DLCO 71% Likely from BMI of 37 Weight loss and incentive spirometry will be beneficial --Severe CORINA Polysomnography 07/04/2024: AHI 45.2, average oxygen 88% Using auto CPAP at home, following up with [facility] --Chewing tobacco Advised to quit --Obesity Advised to lose weight diet and exercise --History of A-fib S/p Watchman device Not on any anticoagulation --Panhypopituitarism On desmopressin 0.4 and hydrocortisone 20 mg in the morning and 10 mg in the afternoon --Morning stiffness lasting more than 30 minutes Anti-CCP positive, rheumatoid factor negative Plan: RAST panel of the patient was negative for everything except for Aspergillus Tenius and IgE was only 3 Can transition Solu-Medrol to prednisone tomorrow Continue with nebulized bronchodilators and Incruse while in the hospital Continue with 7% hypertonic saline and Mucomyst nebulized along with flutter valve On discharge recommend adding either Incruse or Spiriva to his nebulized medications at home Patient does have allergy to contrast. VQ scan could be thought of if need be in future Case was discussed with primary team as well as RN at bedside Please note the above document was generated using voice recognition software. It may contain grammatical, syntax or spelling errors.Any formal questions or concerns about the content, text or information contained within the body of this dictation should be directly addressed to the provider for clarification. Admission and Anticipated Discharge Date Admission Date: March 19, 2025 Subjective Patient seen and family bedside. No acute distress, no adverse events overnight He stated that overnight he had some chest tightness and his blood pressure was high. It resolved He did use his BiPAP overnight He was saturating 97-98% on 2 L nasal cannula, I took him off oxygen Coughing up bringing up clear phlegm. Is compliant with flutter valve Denied any nausea or vomiting Fair appetite Review of Systems 2 Review of Systems: All systems reviewed & are unremarkable except as noted in Subjective Physical Exam 2 Physical Exam: Constitutional: No acute distress HEENT: EOMI, PERRLA, short thick neck Respiratory system: Decreased air entry bilaterally, minimal wheezing, no rhonchi, no crackles CVS: S1-S2 positive, no murmurs or gallops Abdomen: Soft, nontender, nondistended, positive bowel sounds x4, obese Extremities: +2 pulses bilaterally radialis/ dorsalis pedis, no cyanosis, no edema Neuro: Awake alert oriented x3 Psych: Normal mood and affect G/U: No Welsh Skin: no rashes, warm and dry Lymphatic: no cervical or axillary lymphadenopathy Results & Data Results & Data Vital Signs (Past 12 Hours) Vital Signs Temp Pulse Pulse Resp BP BP Pulse Ox 03/22/25 07:01 87 16 96 03/22/25 06:09 81 22 97 03/22/25 06:00 170/99 H 03/22/25 03:21 36.8 C 84 16 174/101 H 99 03/21/25 23:11 36.6 C 89 19 168/99 H 94 03/21/25 22:45 03/21/25 22:39 89 03/21/25 20:11 36.8 C 89 22 146/79 H 98 03/21/25 19:13 97 H 20 94 O2 Del Method O2 Flow Rate FiO2 03/22/25 07:01 Nasal Cannula 2 03/22/25 06:09 35 03/22/25 06:00 03/22/25 03:21 Room Air 03/21/25 23:11 Room Air 03/21/25 22:45 Nasal Cannula, BiPAP 2 03/21/25 22:39 03/21/25 20:11 Nebulizer 03/21/25 19:13 Room Air Laboratory Results 03/21/25 05:43 03/21/25 05:43 PG Care Time/CCT Total # of Minutes Spent Total Time Spent with Patient: Total time spent is greater than 50% in coordination of care (as documented) at patient's floor/unit and/or counseling patient: Coding Level of Care Code 00106 SUB INP/OBS CARE MIN Diagnoses Acute asthma exacerbation J45.901 Anti-cyclic citrullinated peptide antibody positive R76.8 Restrictive lung disease J98.4 Acute on chronic hypoxic respiratory failure J96.21 Abnormal PFTs (pulmonary function tests) R94.2 Pituitary hypogonadism E23.0 Obstructive sleep apnea G47.33
[2025-03-22 07:28] LABS: Hematocrit (blood only) 36.9 % (42.0-52.0); Hemoglobin 12.5 g/dl (14.0-18.0); Mean Corpuscular Hemoglobin 29.2 pg (25.0-34.0); Mean Corpuscular Hgb Conc 33.9 g/dL (32.0-36.0); Mean Corpuscular Volume 86.2 fL (80.0-100.0); Mean Platelet Volume 8.5 fL (9.4-12.4); Platelet Count 156 K/uL (130-400); RDW Coefficient of Variation 14.6 % (11.5-14.5); RDW Standard Deviation 46.2 fL (36.4-46.3); Red Blood Count 4.28 M/uL (4.70-6.10); White Blood Count 15.64 K/ul (4.8-10.8)
[2025-03-22 08:00] LABS: BUN Creatinine Ratio 31.3 (10-20); Creatinine Clr Calc Pharmacy 157.8 ml/min
[2025-03-22] MEDS: LACTULOSE SYRUP 30 GM/45 ML UDP PO STA (10:34)
--- NOTE | 2025-03-22 10:45 | Hospitalist Progress Note ---
Date of Service March 22, 2025 Assessment & Plan (1) Acute on chronic hypoxic respiratory failure: Plan: -likely 2nd to COPD exacerbation -con't steroids, solu-medrol decreased to 40mg IV q12 -nebs -Incruse added as per pulmonary consultation -RAST panel -CTA negative for PE (2) COPD with exacerbation: Plan: -con't has above (3) Uncontrolled type 2 diabetes mellitus with hyperglycemia: Plan: novolog SSI - 35 CF, carb rato 1:12, adjust as needed (4) Bipolar disorder: Plan: -cont lithium, depakote, aripiprazole, cymbalta, remeron, seroquel , trazodone, venlafaxine (5) Pituitary hypothyroidism: Plan: -free T4 is elevated at 3.5 which would suggest iatrogenic hyperthyroidism -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 -hold levothyroixine in meantime (6) Pituitary hypogonadism: (7) Secondary adrenal insufficiency: Plan: -typically on 20mg qam and 10mg qafternoon of Hydrocortisone -last 3-4 weeks has been using 40mg in the am and 20mg in the afternoon -was given IV Hydrocortisone by the ER attending -hold further hydrocortisone for now as he will be getting copious steroids in the form of solumedrol 40mg q8h for his severe COPD flare (8) Presence of Watchman left atrial appendage closure device: (9) Seizure disorder: Plan: -cont keppra 1gm BID -cont lacosamide 150mg BID -depakote 1gm daily (this may be for bipolar, however) (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 due to dehydration? intra-abdominal process given his c/o abdominal fullness/bloating/etc? metformin? other? -was given 500cc bolus of fluid prior to my assessment; will give 2nd bolus of 1 liter now -hold bumex -hold metformin (13) BPH with obstruction/lower urinary tract symptoms: Plan: -cont finasteride -cont prazosin 2mg TID (14) Chronic narcotic dependence: Plan: checked PDMP - indeed he is on norco 7.5's QID -cont such -needs bowel regimen Plan 54yo male with panhypopituitarism, chronic resp failue on home O2 3-4 L NC o2, recent hospitalization [facility] February 23- for pneumonia/COPD, T2DM, bipolar disorder, seizure disorder, status epilepticus requiring intubation at [facility] fall), central hypothyroidism, secondary adrenal insufficiency on hydrocortisone, BPH, bipolar disorder, migraines, CORINA on CPAP, PAF with Watchman Device, and chronic narcotic dependence (norco q6h every day). Presenting with severe dyspnea, SCOTT, wheezing, cough, abdominal bloating, and decreased PO intake. Following his admission at [facility] in February his baseline NC O2 requirement was increased from 3 L continuously to 4 L continuously. Today he was switched to BIPAP shortly after arrival here due to significant dyspnea and increased work of breathing as reported by the ER attending. D/C plan for 03/23 Admission and Anticipated Discharge Date Admission Date: March 19, 2025 Review of Systems Review of Systems: CONST: Negative for fever, body aches and chills. HENT: Negative for neck pain/stiffness, headache, congestion, sore throat, swelling. EYES: Negative for discharge/pain or vision changes. RESP: Negative for cough/hemoptysis and shortness of breath. CV: Negative chest pain, difficulty breathing, palpitations. ABD: Negative pain, nausea, vomiting. : Negative increase frequency, dysuria, blood in urine or stool. MUSC: Negative for muscle aches, edema. SKIN: Negative rash, lesions/sores. NEURO: Negative headache, dizziness, weakness. Physical Exam Physical Exam: GENERAL APPEARANCE NAD, activity normal for age, well developed/ well nourished, no cyanosis, pallor, or diaphoresis. EYES lids/conjunctiva normal. EARS/NOSE/THROAT Mucous membranes moist, nares normal, lips/teeth normal uvula midline without oral pharyngeal erythema, exudate or swelling TMs normal bilaterally. No lymphangitis/lymphedema. HEAD/NECK normocephalic atraumatic, no facial trauma, neck is supple. RESPIRATORY respiratory effort normal, speaks in full sentences, no tripod position, no accessory muscle use. Lungs clear to auscultation without rhonchi, wheezes, rales CARDIAC Regular rate and rhythm, no edema. ABDOMINAL Soft, ND/NT. No evidence of fluid wave. No pulsatile masses on exam, rebound tenderness, Moore sign or pain over Mcburney's point. MUSCLES/EXTREMITIES No abnormal range of motion, no swelling. SKIN Warm, pink and dry. No rashes, dermatoses, petechiae or lesions. NEUROLOGICAL Speech is clear and appropriate. Normal level of consciousness. Gait and coordination are normal. 5/5 strength in all extremities. PSYCH Normal mood and affect. Judgement/competence is appropriate Results & Data Results & Data Vital Signs (Past 12 Hours) Vital Signs Temp Pulse Pulse Resp BP BP Pulse Ox 03/22/25 10:17 83 16 96 03/22/25 09:00 03/22/25 08:05 37.0 C 88 18 176/100 H 99 03/22/25 07:01 87 16 96 03/22/25 06:09 81 22 97 03/22/25 06:00 170/99 H 03/22/25 03:21 36.8 C 84 16 174/101 H 99 03/21/25 23:11 36.6 C 89 19 168/99 H 94 03/21/25 22:45 O2 Del Method O2 Flow Rate FiO2 03/22/25 10:17 Room Air 03/22/25 09:00 Room Air 03/22/25 08:05 Room Air 03/22/25 07:01 Nasal Cannula 2 03/22/25 06:09 35 03/22/25 06:00 03/22/25 03:21 Room Air 03/21/25 23:11 Room Air 03/21/25 22:45 Nasal Cannula, BiPAP 2 PG Care Time/CCT Total # of Minutes Spent Total Time Spent with Patient: Total time spent is greater than 50% in coordination of care (as documented) at patient's floor/unit and/or counseling patient: Coding Level of Care Code 56910 SUB INP/OBS CARE 2/35MIN Diagnoses Acute on chronic hypoxic respiratory failure J96.21 COPD with exacerbation J44.1 Uncontrolled type 2 diabetes mellitus with hyperglycemia E11.65 Bipolar disorder F31.9 Pituitary hypothyroidism E03.8 Pituitary hypogonadism E23.0 Secondary adrenal insufficiency E27.49 Presence of Watchman left atrial appendage closure device Z95.818 Seizure disorder G40.909 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
[2025-03-22] MEDS: hydrALAZINE HCL 20 MG/ML VIAL IV PRN (15:27)
[2025-03-23] MEDS: POLYETHYLENE (MIRALAX) 17 GM PACK PO ONE (05:29)
[2025-03-23 06:45] LABS: Hematocrit (blood only) 39.4 % (42.0-52.0); Hemoglobin 13.4 g/dl (14.0-18.0); Mean Corpuscular Hemoglobin 29.6 pg (25.0-34.0); Mean Platelet Volume 8.7 fL (9.4-12.4); Nucleated RBC # (auto) 0.03 K/uL (0.00-0.12); Nucleated RBC % (auto) 0.2 %; Platelet Count 160 K/uL (130-400); RDW Coefficient of Variation 14.6 % (11.5-14.5); RDW Standard Deviation 46.7 fL (36.4-46.3); Red Blood Count 4.53 M/uL (4.70-6.10)
[2025-03-23 07:09] LABS: Calcium 9.3 mg/dl (8.6-10.3); Creatinine Clr Calc Pharmacy 141.3 ml/min; Potassium 4.3 mmol/L (3.5-5.1)
--- NOTE | 2025-03-23 07:14 | Pulmonology Progress Note ---
Date of Service March 23, 2025 Assessment & Plan (1) Acute asthma exacerbation: (2) Anti-cyclic citrullinated peptide antibody positive: (3) Restrictive lung disease: (4) Acute on chronic hypoxic respiratory failure: (5) Abnormal PFTs (pulmonary function tests): (6) Pituitary hypogonadism: (7) Obstructive sleep apnea: Plan CT chest 10/24/2024 personally reviewed: 3 mm upper lobe pulmonary nodule Linear atelectasis bilateral lower lobes, more on the right side Minimal subcarinal mediastinal lymphadenopathy PFT 12/04/2024 personally reviewed: Moderate to severe restrictive lung dysfunction, mild decrease in TLC, air trapping, significant bronchodilator response, mild decrease in DLCO FVC 2.26 L 46%, FEV1 1.76 L 46%, FEV1/FVC 78%, RV 95%, ERV 1%, TLC 73%, RV/TLC 127%, DLCO 71%, DLCO/VA 125% 2D echo 10/24/2024: EF 60-65%, RV normal in size and function --Acute hypoxic respiratory failure secondary to acute asthma exacerbation On budesonide and Brovana at home Doppler bilateral lower extremity negative for DVT on 03/19/2025 Respiratory BioFire negative for everything on 03/19/2025 Procalcitonin negative BNP 124 CT chest from [facility] 02/23/2025 did show dense consolidative process appreciated bilateral lower lobes more on the left side -- Exertional shortness of breath Multifactorial Worked in [employer] no clear evidence of pneumoconiosis or interstitial lung disease Strong family history of asthma History of A-fib/HFpEF BMI 37 Labs 03/20/2025: IgE 3, RAST panel negative for everything except for Alteria tenuis Does complain of Raynaud's, morning joint stiffness. Dry mouth Denies any dry eyes. No difficulty swallowing Labs 08/10/2024: Negative HEBER, rheumatoid factor negative but anti-CCP positive --Restrictive lung disease FVC 46%, TLC 73%, ERV 1%, DLCO 71% Likely from BMI of 37 Weight loss and incentive spirometry will be beneficial --Severe CORINA Polysomnography 07/04/2024: AHI 45.2, average oxygen 88% Using auto CPAP at home, following up with [facility] --Chewing tobacco Advised to quit --Obesity Advised to lose weight diet and exercise --History of A-fib S/p Watchman device Not on any anticoagulation --Panhypopituitarism On desmopressin 0.4 and hydrocortisone 20 mg in the morning and 10 mg in the afternoon --Morning stiffness lasting more than 30 minutes Anti-CCP positive, rheumatoid factor negative Plan: Transition steroids to prednisone 40 mg for 3 days followed by 20 mg for 3 days and 10 mg for 3 days Continue with nebulized bronchodilators and Incruse while in the hospital Continue with 7% hypertonic saline and Mucomyst nebulized along with flutter valve even at home on an as-needed basis Add Spiriva to his nebulized budesonide and formoterol at home Patient does have allergy to contrast. VQ scan could be thought of if need be in future Case was discussed with primary team as well as RN at bedside Please note the above document was generated using voice recognition software. It may contain grammatical, syntax or spelling errors.Any formal questions or concerns about the content, text or information contained within the body of this dictation should be directly addressed to the provider for clarification. Admission and Anticipated Discharge Date Admission Date: March 19, 2025 Subjective Patient seen and examined at bedside. No acute distress, no adverse events overnight He was saturating 95% on room air Did use his CPAP overnight Coughing up bringing up clear phlegm Denies any nausea vomiting Fair appetite Has been passing gas but no bowel movement. Review of Systems 2 Review of Systems: All systems reviewed & are unremarkable except as noted in Subjective Physical Exam 2 Physical Exam: Constitutional: No acute distress HEENT: EOMI, PERRLA, short thick neck Respiratory system: Decreased air entry bilaterally, no wheezing, no rhonchi, no crackles, patient does have some upper airway wheezing occasionally CVS: S1-S2 positive, no murmurs or gallops Abdomen: Soft, nontender, nondistended, positive bowel sounds x4, obese Extremities: +2 pulses bilaterally radialis/ dorsalis pedis, no cyanosis, no edema Neuro: Awake alert oriented x3 Psych: Normal mood and affect G/U: No Welsh Skin: no rashes, warm and dry Lymphatic: no cervical or axillary lymphadenopathy Results & Data Results & Data Vital Signs (Past 12 Hours) Vital Signs Temp Pulse Pulse Pulse Resp BP Pulse Ox 03/23/25 07:02 84 18 97 03/23/25 04:36 36.4 C L 78 18 157/97 H 92 03/23/25 01:49 87 17 97 03/22/25 23:41 36.4 C L 88 19 157/94 H 93 03/22/25 21:53 98 H 03/22/25 20:17 36.5 C 95 H 22 161/95 H 96 03/22/25 20:00 03/22/25 19:22 99 H 19 95 O2 Del Method O2 Flow Rate FiO2 03/23/25 07:02 Room Air 03/23/25 04:36 Nasal Cannula 2 03/23/25 01:49 36 03/22/25 23:41 Nasal Cannula 2 03/22/25 21:53 03/22/25 20:17 Nasal Cannula 2 03/22/25 20:00 Nasal Cannula 2 03/22/25 19:22 Nasal Cannula 2 Laboratory Results 03/23/25 06:01 03/23/25 06:01 PG Care Time/CCT Total # of Minutes Spent Total Time Spent with Patient: Total time spent is greater than 50% in coordination of care (as documented) at patient's floor/unit and/or counseling patient: Coding Level of Care Code 73851 SUB INP/OBS CARE MIN Diagnoses Acute asthma exacerbation J45.901 Anti-cyclic citrullinated peptide antibody positive R76.8 Restrictive lung disease J98.4 Acute on chronic hypoxic respiratory failure J96.21 Abnormal PFTs (pulmonary function tests) R94.2 Pituitary hypogonadism E23.0 Obstructive sleep apnea G47.33
--- NOTE | 2025-03-23 09:44 | Hospitalist Progress Note ---
Date of Service March 23, 2025 Assessment & Plan (1) Acute on chronic hypoxic respiratory failure: Plan: -likely 2nd to COPD exacerbation -will change to prednisone -nebs -Incruse added as per pulmonary consultation -RAST panel -CTA negative for PE (2) COPD with exacerbation: Plan: -con't has above (3) Uncontrolled type 2 diabetes mellitus with hyperglycemia: Plan: novolog SSI - 35 CF, carb rato 1:12, adjust as needed (4) Bipolar disorder: Plan: -cont lithium, depakote, aripiprazole, cymbalta, remeron, seroquel , trazodone, venlafaxine (5) Pituitary hypothyroidism: Plan: -free T4 is elevated at 3.5 which would suggest iatrogenic hyperthyroidism -will send message to his primary labor delivery rn Dr Voss -hold levothyroixine in meantime (6) Pituitary hypogonadism: (7) Secondary adrenal insufficiency: Plan: -typically on 20mg qam and 10mg qafternoon of Hydrocortisone -last 3-4 weeks has been using 40mg in the am and 20mg in the afternoon -was given IV Hydrocortisone by the ER attending -hold further hydrocortisone for now as he will be getting copious steroids in the form of solumedrol 40mg q8h for his severe COPD flare (8) Presence of Watchman left atrial appendage closure device: (9) Seizure disorder: Plan: -cont keppra 1gm BID -cont lacosamide 150mg BID -depakote 1gm daily (this may be for bipolar, however) (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 due to dehydration? intra-abdominal process given his c/o abdominal fullness/bloating/etc? metformin? other? -was given 500cc bolus of fluid prior to my assessment; will give 2nd bolus of 1 liter now -hold bumex -hold metformin (13) BPH with obstruction/lower urinary tract symptoms: Plan: -cont finasteride -cont prazosin 2mg TID (14) Chronic narcotic dependence: Plan: checked PDMP - indeed he is on norco 7.5's QID -cont such -needs bowel regimen Plan 54yo male with panhypopituitarism, chronic resp failue on home O2 3-4 L NC o2, recent hospitalization [facility] February 23- for pneumonia/COPD, T2DM, bipolar disorder, seizure disorder, status epilepticus requiring intubation at [facility] fall of 2023), central hypothyroidism, secondary adrenal insufficiency on hydrocortisone, BPH, bipolar disorder, migraines, CORINA on CPAP, PAF with Watchman Device, and chronic narcotic dependence (norco q6h every day). Presenting with severe dyspnea, SCOTT, wheezing, cough, abdominal bloating, and decreased PO intake. Following his admission at [facility] in February his baseline NC O2 requirement was increased from 3 L continuously to 4 L continuously. Today he was switched to BIPAP shortly after arrival here due to significant dyspnea and increased work of breathing as reported by the ER attending. D/C plan for 03/24 Admission and Anticipated Discharge Date Admission Date: March 19, 2025 Subjective No events overnight. Review of Systems Review of Systems: CONST: Negative for fever, body aches and chills. HENT: Negative for neck pain/stiffness, headache, congestion, sore throat, swelling. EYES: Negative for discharge/pain or vision changes. RESP: Negative for cough/hemoptysis and shortness of breath. CV: Negative chest pain, difficulty breathing, palpitations. ABD: Negative pain, nausea, vomiting. : Negative increase frequency, dysuria, blood in urine or stool. MUSC: Negative for muscle aches, edema. SKIN: Negative rash, lesions/sores. NEURO: Negative headache, dizziness, weakness. Physical Exam Physical Exam: GENERAL APPEARANCE NAD, activity normal for age, well developed/ well nourished, no cyanosis, pallor, or diaphoresis. EYES lids/conjunctiva normal. EARS/NOSE/THROAT Mucous membranes moist, nares normal, lips/teeth normal uvula midline without oral pharyngeal erythema, exudate or swelling TMs normal bilaterally. No lymphangitis/lymphedema. HEAD/NECK normocephalic atraumatic, no facial trauma, neck is supple. RESPIRATORY respiratory effort normal, speaks in full sentences, no tripod position, no accessory muscle use. Lungs clear to auscultation without rhonchi, wheezes, rales CARDIAC Regular rate and rhythm, no edema. ABDOMINAL Soft, ND/NT. No evidence of fluid wave. No pulsatile masses on exam, rebound tenderness, Moore sign or pain over Mcburney's point. MUSCLES/EXTREMITIES No abnormal range of motion, no swelling. SKIN Warm, pink and dry. No rashes, dermatoses, petechiae or lesions. NEUROLOGICAL Speech is clear and appropriate. Normal level of consciousness. Gait and coordination are normal. 5/5 strength in all extremities. PSYCH Normal mood and affect. Judgement/competence is appropriate Results & Data Results & Data Vital Signs (Past 12 Hours) Vital Signs Temp Pulse Pulse Pulse Resp BP BP 03/23/25 07:20 36.8 C 83 19 149/90 H 03/23/25 07:02 84 18 03/23/25 04:36 36.4 C L 78 18 157/97 H 03/23/25 01:49 87 17 03/22/25 23:41 36.4 C L 88 19 157/94 H 03/22/25 21:53 98 H Pulse Ox O2 Del Method O2 Flow Rate FiO2 03/23/25 07:20 99 Nasal Cannula 2 03/23/25 07:02 97 Room Air 03/23/25 04:36 92 Nasal Cannula 2 03/23/25 01:49 97 36 03/22/25 23:41 93 Nasal Cannula 2 03/22/25 21:53 PG Care Time/CCT Total # of Minutes Spent Total Time Spent with Patient: Total time spent is greater than 50% in coordination of care (as documented) at patient's floor/unit and/or counseling patient: Coding Level of Care Code 30457 SUB INP/OBS CARE 2/35MIN Diagnoses Acute on chronic hypoxic respiratory failure J96.21 COPD with exacerbation J44.1 Uncontrolled type 2 diabetes mellitus with hyperglycemia E11.65 Bipolar disorder F31.9 Pituitary hypothyroidism E03.8 Pituitary hypogonadism E23.0 Secondary adrenal insufficiency E27.49 Presence of Watchman left atrial appendage closure device Z95.818 Seizure disorder G40.909 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
[2025-03-23] MEDS: MAGNESIUM CITRATE 296 ML/BTL PO STA (11:02)
[2025-03-23] MEDS: POLYETHYLENE (MIRALAX) 17 GM PACK PO SCH (11:02)
[2025-03-23] MEDS: predniSONE 20 MG TAB PO SCH (11:51)
[2025-03-24 06:06] LABS: Anion Gap 4 (3-11); BUN Creatinine Ratio 27.5 (10-20); Blood Urea Nitrogen 22 mg/dl (6-23); Carbon Dioxide 30 mmol/L (21-32); Chloride 99 mmol/L (98-107); Creatinine Clr Calc Pharmacy 132.5 ml/min; Glucose 161 mg/dl (70-99(Fasting)); Sodium 133 mmol/L (136-145)
[2025-03-24 06:41] LABS: Hematocrit (blood only) 41.1 % (42.0-52.0); Hemoglobin 13.8 g/dl (14.0-18.0); Mean Corpuscular Hemoglobin 29.2 pg (25.0-34.0); Mean Corpuscular Hgb Conc 33.6 g/dL (32.0-36.0); Mean Corpuscular Volume 86.9 fL (80.0-100.0); Mean Platelet Volume 8.6 fL (9.4-12.4); Platelet Count 167 K/uL (130-400); RDW Coefficient of Variation 14.9 % (11.5-14.5); RDW Standard Deviation 47.1 fL (36.4-46.3); Red Blood Count 4.73 M/uL (4.70-6.10); White Blood Count 18.67 K/ul (4.8-10.8)
[2025-03-24 07:21] VITALS: BP 138/85; TEMP 97.9
--- NOTE | 2025-03-24 08:10 | Discharge Summary ---
Discharge Summary Date of Service March 24, 2025 Principal Dx & Hospital Course #1 = Principal Diagnosis (1) Acute on chronic hypoxic respiratory failure: -likely 2nd to COPD exacerbation -will change to prednisone -nebs -Incruse added as per pulmonary consultation -RAST panel -CTA negative for PE (2) COPD with exacerbation: -con't has above (3) Uncontrolled type 2 diabetes mellitus with hyperglycemia: novolog SSI - 35 CF, carb rato 1:12, adjust as needed (4) Bipolar disorder: -cont lithium, depakote, aripiprazole, cymbalta, remeron, seroquel , trazodone, venlafaxine (5) Pituitary hypothyroidism: -free T4 is elevated at 3.5 which would suggest iatrogenic hyperthyroidism -will send message to his primary manager licensing Dr Voss -hold levothyroixine in meantime (6) Pituitary hypogonadism: (7) Secondary adrenal insufficiency: -typically on 20mg qam and 10mg qafternoon of Hydrocortisone -last 3-4 weeks has been using 40mg in the am and 20mg in the afternoon -was given IV Hydrocortisone by the ER attending -hold further hydrocortisone for now as he will be getting copious steroids in the form of solumedrol 40mg q8h for his severe COPD flare (8) Presence of Watchman left atrial appendage closure device: (9) Seizure disorder: -cont keppra 1gm BID -cont lacosamide 150mg BID -depakote 1gm daily (this may be for bipolar, however) (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 due to dehydration? intra-abdominal process given his c/o abdominal fullness/bloating/etc? metformin? other? -was given 500cc bolus of fluid prior to my assessment; will give 2nd bolus of 1 liter now -hold bumex -hold metformin (13) BPH with obstruction/lower urinary tract symptoms: -cont finasteride -cont prazosin 2mg TID (14) Chronic narcotic dependence: checked PDMP - indeed he is on norco 7.5's QID -cont such -needs bowel regimen Plan 54yo male with panhypopituitarism, chronic resp failue on home O2 3-4 L NC o2, recent hospitalization [facility] February 23- for pneumonia/COPD, T2DM, bipolar disorder, seizure disorder, status epilepticus requiring intubation at [facility] fall), central hypothyroidism, secondary adrenal insufficiency on hydrocortisone, BPH, bipolar disorder, migraines, CORINA on CPAP, PAF with Watchman Device, and chronic narcotic dependence (norco q6h every day). Presenting with severe dyspnea, SCOTT, wheezing, cough, abdominal bloating, and decreased PO intake. Following his admission at [facility] in February his baseline NC O2 requirement was increased from 3 L continuously to 4 L continuously. Today he was switched to BIPAP shortly after arrival here due to significant dyspnea and increased work of breathing as reported by the ER attending. D/C plan for 03/24 Admission HPI Per Admitting Provider 54yo male with panhypopituitarism, chronic resp failue on home O2 3-4 L NC o2, recent hospitalization [facility] February 23 for pneumonia/COPD, T2DM, bipolar disorder, seizure disorder, central hypothyroidism, secondary adrenal insufficiency on hydrocortisone, BPH, bipolar disorder, migraines, CORINA on CPAP, PAF with Watchman Device, chronic narcotic dependence (norco q6h every day). Presents with ongoing/refractory dyspnea, SCOTT (1 flight of stairs leads to such right now -- typically can walk significantly further distances), dry cough, poor PO intake, chest tightness, and wheezing. Has been on stress dose hydrocortisone for about 1 month - normally takes 20mg qam and 10mg qpm -- recently taking 40mg and 20mg, respectively over that month period. He states he is compliant with CPAP at , NC o2, and his chronic medicines. Reports 12# weight gain in the last month and feels bloated in his abdomen. Retrospectively he feels he never truly recovered from his [facility] Hospitalization in early February. Of note - he was hospitalized at [facility] in late December/early January for influenza infection & COPD exacerbation, then had a 2nd admission a few days after that for dyspnea. ED Course - Upon presentation was tachycardic, had increased work of breathing - placed on BIPAP Received NS bolus (500ml) I gave 2nd NS bolus (1 L) after my assessment Given 2 grams mag sulfate for low mag level Given IV hydrocortisone 100mg x 1 Discharge Exam GENERAL APPEARANCE NAD, activity normal for age, well developed/ well nourished, no cyanosis, pallor, or diaphoresis. EYES lids/conjunctiva normal. EARS/NOSE/THROAT Mucous membranes moist, nares normal, lips/teeth normal uvula midline without oral pharyngeal erythema, exudate or swelling TMs normal bilaterally. No lymphangitis/lymphedema. HEAD/NECK normocephalic atraumatic, no facial trauma, neck is supple. RESPIRATORY respiratory effort normal, speaks in full sentences, no tripod position, no accessory muscle use. Lungs clear to auscultation without rhonchi, wheezes, rales CARDIAC Regular rate and rhythm, no edema. ABDOMINAL Soft, ND/NT. No evidence of fluid wave. No pulsatile masses on exam, rebound tenderness, Moore sign or pain over Mcburney's point. MUSCLES/EXTREMITIES No abnormal range of motion, no swelling. SKIN Warm, pink and dry. No rashes, dermatoses, petechiae or lesions. NEUROLOGICAL Speech is clear and appropriate. Normal level of consciousness. Gait and coordination are normal. 5/5 strength in all extremities. PSYCH Normal mood and affect. Judgement/competence is appropriate Discharge Plan Discharge Items Patient Disposition: Home - Self-Care Reason For Visit: ACUTE/CHRONIC RESIRATORY FAILURE Discharge Diagnosis: COPD exacerbation Condition on Discharge: Serious Activity: Resume your previous activity Non-emergency contact: Primary Care Provider Call non-emergency contact if: you have any medication questions Follow-up/Referrals: Larry Amaral MD [Primary Care Provider] - Diet: Regular Addtl Attending Provider Instructions: Follow up with PMD in 2 weeks Pending Studies at Discharge: No Stand-Alone Forms: My [facility] [employer], Smoking Cessation Medications and DC Order Prescriptions: New levothyroxine [Synthroid] 150 mcg Tablet 150 mcg PO DAILYBB Qty: 30 0RF formoterol fumarate [Perforomist] 20 mcg/2 mL Solution For Nebulization 20 mcg NEB BIDR Qty: 60 0RF prednisone 10 mg tablet 10 mg PO DIRECTED Qty: 30 0RF Rx Instructions: 4 tabs for 3 days then 3 tabs for 3 days then 2 tabs for 3 days then 1 tab for 3 days Continued clopidogrel [Plavix] 75 mg tablet 75 mg PO DAILY lithium carbonate 300 mg tablet 300 mg PO AMHS fluticasone propionate [Flonase Allergy Relief] 50 mcg/actuation spray,suspension 1 spray intranasal HS PRN (Reason: allergy symptoms) Qty: 16 0RF Rx Instructions: administer into each nostril (DME) insulin syringe-needle U-100 [BD Insulin Syringe Ultra-Fine] 1 mL 30 gauge x 1/2" syringe See Rx Instructions .Route Qty: 300 1RF Rx Instructions: use tid (DME) OneTouch Verio test strips Strip See Rx Instructions .MEDSUPPLY Qty: 150 5RF Rx Instructions: check blood sugars 4 times a day (DME) blood-glucose meter [OneTouch Verio Reflect Meter] Misc See Rx Instructions miscellaneous .MEDSUPPLY Qty: 1 0RF Rx Instructions: As directed (DME) lancets [OneTouch Delica Plus Lancet] 33 gauge misc See Rx Instructions .MEDSUPPLY Qty: 150 5RF Rx Instructions: As directed check blood sugars 4 times a day (DME) FreeStyle Rosalie 2 Sensor Kit See Rx Instructions .Route Qty: 6 3RF Rx Instructions: Change every 14 days Botox 200 unit recon soln See Rx Instructions IM .COMPLEX Qty: 1 3RF Rx Instructions: 155 UNITS IM IN THE FACE AND NECK MUSCLES EVERY 12 WEEKS PER MIGRAINE PROTOCOL cholecalciferol (vitamin D3) 50 mcg (2,000 unit) capsule 50 mcg PO QPM Qty: 90 1RF rosuvastatin 20 mg tablet 20 mg PO QAM Qty: 90 2RF pantoprazole 40 mg tablet,delayed release (DR/EC) 40 mg PO BID Qty: 60 5RF (DME) pen needle, diabetic [BD Vy 2nd Gen Pen Needle] 32 gauge x 5/32" needle See Rx Instructions miscellaneous .MEDSUPPLY Qty: 100 3RF Rx Instructions: inject with a new pen needle daily lorazepam 0.5 mg tablet 0.5 mg PO DAILY PRN (Reason: Seizure Activity) levetiracetam 1,000 mg tablet 1,000 mg PO Q12H Qty: 60 6RF aspirin 81 mg tablet,delayed release (DR/EC) 81 mg PO QAM Qty: 90 3RF Norditropin FlexPro 5 mg/1.5 mL (3.3 mg/mL) pen injector 0.3 mg SQ QPM Qty: 2 5RF metoprolol succinate 25 mg tablet extended release 24 hr 25 mg PO HS Qty: 90 3RF desmopressin 0.2 mg tablet 0.4 mg PO BID Qty: 120 5RF lisinopril 40 mg tablet 40 mg PO DAILY Qty: 90 2RF divalproex 500 mg tablet,delayed release (DR/EC) 1,000 mg PO DAILY Qty: 60 6RF lacosamide 150 mg tablet 150 mg PO BID Qty: 60 5RF hydrocortisone 10 mg tablet 10 mg PO UD Qty: 135 1RF Rx Instructions: TAKE 20mg IN THE AM AND 10mg IN THE afternoon around 2 o clock. MAY DOUBLE THE DOSE IN TIMES OF STRESS. (DME) Oxygen Home Liters Per Minute See Rx Instructions .Route Rx Instructions: 4 L o2 via NC As directed, metformin 1,000 mg tablet 1,000 mg PO BID Qty: 180 3RF Hold Instructions: Per Dr Voss to hold as of 11/23/22 testosterone 20.25 mg/1.25 gram (1.62 %) gel in metered-dose pump 2 pump TOP PM Qty: 75 5RF Rx Instructions: apply 1 pump amount over max area of EACH upper arm and shoulder PDMP Queried ok to fill 03/17/2023 DS (DME) [employer] Rosalie 2 [place] [facility] [place] [place] See Rx Instructions .Route Qty: 1 0RF Rx Instructions: Check blood glucose before each meal (DME) OneTouch Verio test strips Strip See Rx Instructions .Route Rx Instructions: Test blood sugar two times daily mirtazapine [Remeron] 30 mg tablet 30 mg PO UD Rx Instructions: Take 30mg w/ 15mg tablet to equal 45mg at bedtime. albuterol sulfate [Ventolin HFA] 90 mcg/actuation HFA aerosol inhaler 2 inh inhalation Q6H PRN (Reason: shortness of breath or wheezing) Qty: 6.7 2RF budesonide 0.5 mg/2 mL suspension for nebulization 0.5 mg inhalation DAILY Qty: 60 5RF (DME) nebulizers [Compact Compressor Nebulizer] [facility] [place] [place] See Rx Instructions .Route Qty: 1 0RF Rx Instructions: One compact compressor nebulizer. Use as directed. Please include tubing, mouth piece and cup. ipratropium-albuterol 0.5 mg-3 mg(2.5 mg base)/3 mL solution for nebulization 3 ml inhalation QID PRN (Reason: wheezing) Qty: 90 0RF trazodone 100 mg tablet 100 mg PO HS ferrous sulfate 325 mg (65 mg iron) tablet 325 mg PO .qod famotidine [Acid Food Technologist (famotidine)] 20 mg tablet 20 mg PO DAILY 42 Days Qty: 42 3RF insulin glargine [Lantus Solostar U-100 Insulin] 100 unit/mL (3 mL) insulin pen 12 unit SUBCUT HS Hold Instructions: Has been on hold for a few weeks per pt Patient Comments: PER PT HE IS TAKING 12 UNITS -CONFIRMED ON 07/19/24 Mounjaro 2.5 mg/0.5 mL pen injector 2.5 mg subcut Q7D Qty: 2 3RF Rx Instructions: tuesday Nurtec ODT 75 mg tablet,disintegrating 75 mg PO DAILY PRN (Reason: Migraine Headache) Qty: 16 6RF doxycycline hyclate 100 mg tablet 100 mg PO BID magnesium oxide 400 mg (241.3 mg magnesium) tablet 400 mg PO DAILY prazosin 2 mg capsule 2 mg PO TID potassium chloride 10 mEq tablet extended release 10 meq PO DAILY duloxetine 60 mg capsule,delayed release(DR/EC) 60 mg PO UD Rx Instructions: Pt states that he takes 60mg in the morning and 30mg in the evening. Original Directions: 60mg by mouth twice daily dutasteride 0.5 mg capsule 0.5 mg PO QAM Rx Instructions: TAKE 1 CAPSULE BY MOUTH DAILY IN THE MORNING Baqsimi 3 mg/actuation spray,non-aerosol 3 mg intranasal ONCE PRN (Reason: Severe Hypoglycemia) Rx Instructions: for treatment of severe hypoglycemia, second dose may be given if patient does not respond after 15 minutes . Per caregiver, pt has never has to use this medication. bumetanide 1 mg Tablet 1 mg PO QAM Qty: 30 0RF vitamin B complex [Vitamins B Complex] Capsule 1 cap PO QAM Qty: 30 0RF hydrocodone-acetaminophen 7.5-325 mg tablet 1 tab PO Q6H propranolol 120 mg capsule,extended release 24hr 120 mg PO HS oxybutynin chloride 5 mg tablet extended release 24hr 5 mg PO DAILY Rx Instructions: TAKE 1 TABLET BY MOUTH DAILY arformoterol [Brovana] 15 mcg/2 mL solution for nebulization 2 ml inhalation BID venlafaxine 150 mg capsule,extended release 24hr 150 mg PO DAILY quetiapine 50 mg tablet extended release 24 hr 50 mg PO DAILY nystatin 100,000 unit/gram cream 1 applic topical BID PRN (Reason: Other) aripiprazole 5 mg tablet 5 mg PO DAILY Discontinued levothyroxine 200 mcg tablet 200 mcg PO QAM Qty: 30 3RF amoxicillin-pot clavulanate 875-125 mg tablet 1 tab PO BID Discharge Orders: Discharge Order (Routine); Ordered 03/24/25 Ordered By: Marcial Garcia Admission Data Admit Date/Time: 03/19/25 15:41 Attending Provider: Marcial Garcia Admit Provider: Trenton Owens Primary Care Provider: Larry Amaral Other Providers: Sean Sow; Trenton Owens; Hernandez Fischer [facility] Hospital Stay Data Consultations 03/19/25 14:04 ED Decision to Admit Stat 03/19/25 15:41 Consult Pulmonology Routine Diagnostic Imagining Performed 03/19/25 12:33 CT chest diagnostic wo con Stat 03/19/25 17:01 CT Abd and Pelvis [CT abd pelvis wo con] Stat 03/20/25 US venous doppler LE BI Stat Pending Results Patient Have Any Pending Studies at Discharge: No Discharge Instructions Given to Patient (Per Discharging Provider) Follow up with PMD in 2 weeks Total Time Total Time Spent Total Time Spent (In Minutes): 50 Coding Level of Care Code 76813 INP/OBS DISCH >30 MIN Diagnoses Acute on chronic hypoxic respiratory failure J96.21 COPD with exacerbation J44.1 Uncontrolled type 2 diabetes mellitus with hyperglycemia E11.65 Bipolar disorder F31.9 Pituitary hypothyroidism E03.8 Pituitary hypogonadism E23.0 Secondary adrenal insufficiency E27.49 Presence of Watchman left atrial appendage closure device Z95.818 Seizure disorder G40.909 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
--- NOTE | 2025-03-24 10:34 | Pulmonology Progress Note ---
Date of Service March 24, 2025 Assessment & Plan (1) Acute asthma exacerbation: (2) Anti-cyclic citrullinated peptide antibody positive: (3) Restrictive lung disease: (4) Acute on chronic hypoxic respiratory failure: (5) Abnormal PFTs (pulmonary function tests): (6) Pituitary hypogonadism: (7) Obstructive sleep apnea: Plan CT chest 03/19/2025 personally reviewed: No acute pulmonary infiltrate or pulmonary nodule Linear atelectasis in the right lower lobe as well as inferior lobe of the lingula Minimal subcarinal mediastinal lymphadenopathy PFT 12/04/2024 personally reviewed: Moderate to severe restrictive lung dysfunction, mild decrease in TLC, air trapping, significant bronchodilator response, mild decrease in DLCO FVC 2.26 L 46%, FEV1 1.76 L 46%, FEV1/FVC 78%, RV 95%, ERV 1%, TLC 73%, RV/TLC 127%, DLCO 71%, DLCO/VA 125% 2D echo 10/24/2024: EF 60-65%, RV normal in size and function --Acute hypoxic respiratory failure secondary to acute asthma exacerbation On budesonide and Brovana at home Doppler bilateral lower extremity negative for DVT on 03/19/2025 Respiratory BioFire negative for everything on 03/19/2025 Procalcitonin negative BNP 124 CT chest from [facility] 02/23/2025 did show dense consolidative process appreciated bilateral lower lobes more on the left side -- Exertional shortness of breath Multifactorial Worked in [employer] no clear evidence of pneumoconiosis or interstitial lung disease Strong family history of asthma History of A-fib/HFpEF BMI 37 Labs 03/20/2025: IgE 3, RAST panel negative for everything except for Alteria tenuis Does complain of Raynaud's, morning joint stiffness. Dry mouth Denies any dry eyes. No difficulty swallowing Labs 08/10/2024: Negative HEBER, rheumatoid factor negative but anti-CCP positive --Restrictive lung disease FVC 46%, TLC 73%, ERV 1%, DLCO 71% Likely from BMI of 37 Weight loss and incentive spirometry will be beneficial --Severe CORINA Polysomnography 07/04/2024: AHI 45.2, average oxygen 88% Using auto CPAP at home, following up with [facility] --Chewing tobacco Advised to quit --Obesity Advised to lose weight diet and exercise --History of A-fib S/p Watchman device Not on any anticoagulation --Panhypopituitarism On desmopressin 0.4 and hydrocortisone 20 mg in the morning and 10 mg in the afternoon --Morning stiffness lasting more than 30 minutes Anti-CCP positive, rheumatoid factor negative Plan: Continue with prednisone 40 mg for 3 days followed by 20 mg for 3 days and 10 mg for 3 days Continue with nebulized bronchodilators and Incruse while in the hospital Continue with 7% hypertonic saline and Mucomyst nebulized along with flutter valve even at home on an as-needed basis Add Spiriva to his nebulized budesonide and formoterol at home Patient had concerns about pulmonary nodule on the CAT scan of the chest back in October I educated the patient that he is a lifetime non-smoker small nodules diagnosed do not need surveillance He was also supposed to have a CAT scan of the chest done in 2 weeks ordered by primary care. The latest CAT scan already showed improvement in the pneumonia that he had back in February. I do not think he needs another CAT scan of the chest in 2 weeks Case was discussed with primary team as well as RN at bedside Please note the above document was generated using voice recognition software. It may contain grammatical, syntax or spelling errors.Any formal questions or concerns about the content, text or information contained within the body of this dictation should be directly addressed to the provider for clarification. Admission and Anticipated Discharge Date Admission Date: March 19, 2025 Subjective Patient seen and examined at bedside. No acute distress, normal sinus overnight Patient's family was in the room He was ready to go home Stated that he is feeling much better Saturating well on room air Denied any headache or blurry vision Fair appetite, no nausea vomiting Review of Systems 2 Review of Systems: All systems reviewed & are unremarkable except as noted in Subjective Physical Exam 2 Physical Exam: Constitutional: No acute distress HEENT: EOMI, PERRLA, short thick neck Respiratory system: Decreased air entry bilaterally, no wheezing, no rhonchi, no crackles CVS: S1-S2 positive, no murmurs or gallops Abdomen: Soft, nontender, nondistended, positive bowel sounds x4, obese Extremities: +2 pulses bilaterally radialis/ dorsalis pedis, no cyanosis, no edema Neuro: Awake alert oriented x3 Psych: Normal mood and affect G/U: No Welsh Skin: no rashes, warm and dry Lymphatic: no cervical or axillary lymphadenopathy Results & Data Results & Data Vital Signs (Past 12 Hours) Vital Signs Temp Pulse Pulse Resp BP BP Pulse Ox 03/24/25 07:21 36.6 C 80 20 138/85 98 03/24/25 07:02 74 18 96 03/24/25 07:00 77 03/24/25 07:00 03/24/25 04:10 36.4 C L 81 18 154/94 H 96 03/24/25 00:08 36.4 C L 86 19 160/96 H 97 03/23/25 23:51 91 H 21 99 O2 Del Method O2 Flow Rate FiO2 03/24/25 07:21 Nasal Cannula 2 03/24/25 07:02 Room Air 03/24/25 07:00 03/24/25 07:00 Room Air 03/24/25 04:10 Nasal Cannula 2 03/24/25 00:08 Nasal Cannula 2 03/23/25 23:51 36 Laboratory Results 03/24/25 06:31 03/24/25 08:13 PG Care Time/CCT Total # of Minutes Spent Total Time Spent with Patient: Total time spent is greater than 50% in coordination of care (as documented) at patient's floor/unit and/or counseling patient: Coding Level of Care Code 92936 SUB INP/OBS CARE 2/35MIN Diagnoses Acute asthma exacerbation J45.901 Anti-cyclic citrullinated peptide antibody positive R76.8 Restrictive lung disease J98.4 Acute on chronic hypoxic respiratory failure J96.21 Abnormal PFTs (pulmonary function tests) R94.2 Pituitary hypogonadism E23.0 Obstructive sleep apnea G47.33
[2025-03-24 10:41] VITALS: RESP 16; O2SAT 97
[2025-03-24 11:25] VITALS: PULSE 88
== END 2025-03-24 11:37 | disposition home health service (06) | DRG 189 ==
LOC: ED 11:52 → SUATTDRO 15:41 → 2E 15:41

== ENCOUNTER 2025-03-27 11:11 | Inpatient (IN) ==
--- NOTE | 2025-03-27 11:20 | Emergency Department Note ---
Impression & Plan Witnessed seizure-like activity, Acute dehydration ED Provider Note NAME: LINSEY VIRAMONTES Jr AGE: 54 SEX: M : 1970 ARRIVES VIA: Ambulance INFORMANT: Patient, nursing report, ED PROVIDER(S): Curtis Britton MD CHIEF COMPLAINT: Possible seizure MEDICAL DECISION MAKING: Patient presents with the above. IV was established and blood work was obtained. Patient was loaded with IV Keppra 40 mg/kg. Patient did have a shaking-like episode. The patient did seem to clench his eyes and tried to open them but was not following commands. The patient was ordered IV Ativan 1 mg. Did review the patient's history which does show a history of seizures versus psychogenic seizures. Given the episode and the patient's history and prior use I did speak with the on-call neurologist Dr. Ribeiro did not recommend any medication changes at this time. Blood work showed a white count of 18 with a normal hemoglobin platelet count is unremarkable. Kidney function unremarkable LFTs unremarkable. CT head is normal. Given the patient's breakthrough episodes today with his concomitant comorbidities do believe the patient would benefit from inpatient treatment at this time. CT head and chest x-ray unremarkable. I did speak with the on-call hospitalist service and the patient was admitted to the medicine service. Critical Care: I have personally spent 46 minutes of critical care time in direct management of this patient. This includes bedside care, interpretation of diagnostic studies, and testing, discussion with consultants, patient, and family members, and other require inpatient management activities. This 46 minutes is in excess of all separately billable procedures. Discussion w/ other healthcare providers: Dr. Ribeiro neurology Dr. Rodriguez inpatient medicine service Prior /Outside records reviewed: None Differential diagnosis: Epilepsy, infection, hypoglycemia, electrolyte abnormalities, cardiac sources, intracerebral event, trauma, toxicologic, neurologic, syncope, as well as other pathologies. Diagnostics, as interpreted by me: ECG: Sinus tachycardia, rate of 110, normal intervals, left axis deviation no obvious ST elevations. Cardiac monitoring: An order was placed for continuous cardiac monitoring. The monitor shows a rate of 102 with tachycardic and regular rhythm. Patient was placed on pulse oximetry Medical decision rules: None Imaging studies: I informally interpreted the patient's chest x-ray without obvious pneumothorax with formal report to follow. HPI: Patient presents due to concern for shaking-like activity. Patient reportedly was in clinic and today and reports that the patient had generalized shaking like activity that occurred about 20 to 30 seconds in duration and happen 3 separate times. Initially had 2 that were relatively close together and 1 episode that happened about 20 minutes later patient did have a recent inpatient stay due to concerns for pneumonia. The patient was discharged on oxygen. Prior history of CHF as well. Patient denies any cough or fever. Patient denies any headache no numbness tingling or focal weakness. Reportedly compliant with his seizure medications he did take them this morning as well as last evening. PAST MEDICAL HISTORY: See Below PAST SURGICAL HISTORY: See Below SOCIAL HISTORY: See Below HOME MEDICATIONS: See Below ALLERGIES: See Below VITALS: See Below PHYSICAL EXAMINATION: GENERAL: NAD, non-toxic. Nasal cannula in place. EYE EXAM: Normal conjunctiva. PERRL, no anisocoria and EOM's grossly intact w/o pain. OROPHARYNX: Moist mucus membranes, grossly normal dentition. NECK: Trachea midline, no stridor. Supple, no nuchal rigidity, no adenopathy, non-tender. No signs of meningismus. FROM of the neck with good chin to chest and neck extension. LUNGS: Clear to auscultation. Normal chest wall mechanics. HEART: NSR, no MRG. ABDOMEN: Abdomen soft, non-tender, no masses, no rebound or guarding. BACK: No CVA TTP. SKIN: No rashes and no bruising. UPPER EXTREMITIES: Upper extremities are grossly normal. LOWER EXTREMITIES: Grossly normal, no edema. NEURO EXAM: Awake and alert, follows commands, no obvious facial asymmetry, normal speech, moves all 4 extremities. Good [id number], no drift and no sensory deficits. Past Med/Surg History Problem List (Updated 04/01/25 @ 15:47 by Curtis Britton MD) Acute dehydration (Acute) Witnessed seizure-like activity (Acute) Nonepileptic episode Compartment syndrome of lower extremity Ambulatory dysfunction (Acute) LPRD (laryngopharyngeal reflux disease) Arthralgia Venous stasis ulcers (Acute) Chronic venous insufficiency (Chronic) Presbyopia of both eyes Epiretinal membrane (ERM) of left eye Ocular hypertension Secondary cataract of left eye with vision obscured Combined form of senile cataract of right eye Abnormal chest CT COPD (chronic obstructive pulmonary disease) (Chronic) Demyelinating disease Hypertension (Acute) Non-occlusive coronary artery disease Lumbar stenosis with neurogenic claudication Esophageal dysphagia Anxiety (Chronic) Mitral regurgitation Essential tremor Idiopathic polyneuropathy Arachnoid cyst of posterior cranial fossa Mixed hyperlipidemia Ulcerative colitis Anemia (Acute) Chronic migraine without aura or status migrainosus Current use of proton pump inhibitor Severe obesity (BMI 35.0-35.9 with comorbidity) 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 Depression Medical History Chronic narcotic dependence COPD with exacerbation Anti-cyclic citrullinated peptide antibody positive Restrictive lung disease Abnormal PFTs (pulmonary function tests) Uncontrolled type 2 diabetes mellitus with hyperglycemia Suspect low glycation index meaning his A1c is typically about 2 points lower than what his average glucose would suggest. 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 Follows with endocrinology- Pituitary hypothyroidism Follows with endocrinology- Secondary adrenal insufficiency Transient alteration of awareness Elevated lactic acid level Chronic adrenal insufficiency Leukocytosis Lactic acidosis Acute asthma exacerbation Acute on chronic hypoxic respiratory failure Migraine Fall Hematoma Growth hormone deficiency Diaphoresis Acute hypoxic respiratory failure Influenza A Influenza A Seizure disorder Presence of Watchman left atrial appendage closure device Status epilepticus (09/13/24) Knee hemarthrosis, right (09/13/24) Acute on chronic anemia (09/13/24) Acute metabolic encephalopathy (09/13/24) Acute hypoxic respiratory failure (09/13/24) Laceration of toe of right foot Closed fracture of right fibula with malunion Type 2 diabetes mellitus Right fibular fracture Acute on chronic respiratory failure with hypoxia and hypercapnia Shortness of breath Acute hypercapnic respiratory failure Acute hypercapnic respiratory failure Chronic respiratory failure with hypoxia Obesity CKD (chronic kidney disease), stage III Peripheral edema Seizure disorder Atrial fibrillation (02/15/24) Chronic low back pain Panhypopituitarism Lumbosacral radiculopathy Toxic encephalopathy Chest pain Acute dyspnea Acute CHF Hypoglycemia Syncope and collapse Reason for loop recorder No recent issues since bed bound from femur fracture in Sep 2022 per patient Internal hemorrhoids Recurrent seizures Pituitary diabetes insipidus Follows with endocrinology- on DDAVP Spondylolysis, lumbar region Right lumbar radiculopathy HTN (hypertension) Bipolar disorder Adrenal insufficiency Pituitary adenoma Diabetes Bleeding (02/16/24) Acute blood loss anemia (02/19/24) Hyperactive gag reflex BRCA gene positive tested positive in Aug 2023 [place] > reason for up coming EGD Family history of BRCA gene mutation PTSD (post-traumatic stress disorder) Epidural lipomatosis Chronic left sacroiliac pain Benzodiazepine overdose none since Nov 2022 Presence of cardiac device Loop recorder > last checked fall 2022 Hx of fracture of foot Sep 2022- right > cast since removed > still gets painful Fracture of fibula, right, closed Cerebral concussion May 2023 during seizure > no further issues Orthostatic hypotension Pseudoseizures Sensorineural hearing loss of both ears Rectal bleeding on occasion History of COVID-19 10/2021 - fatigue; resolved. Mitral valve regurgitation follows with Dr. Phillips Vertigo Panhypopituitarism Lower extremity edema Elevated LFTs Bilateral hand pain Pituitary neoplasm Dx'ed in 2001- s/p surgical resection and XRT Repeat surgery in 2017 secondary to tumor regrowth at [facility] Kidney stones HX Prostate mass benign Bladder mass benign Obstructive sleep apnea of adult cpap > non compliant per pt Surgical History S/P TURP (status post transurethral resection of prostate) History of lumbar fusion [facility] [place] 2022 History of cardiac cath 07/2021 - no stents S/P epidural steroid injection History of lithotripsy Status post right foot surgery replaced 5th metatarsal--hardware in place History of bladder surgery remove mass History of prostate surgery remove mass History of colonoscopy History of esophagogastroduodenoscopy (EGD) History of tooth extraction History of wisdom tooth extraction History of brain surgery x2---2004 @ [facility] [place], [place] @ [facility]--for brain tumors > caused epilepsy Family History Grandmother (Paternal) Family history of diabetes mellitus Aunt Family history of diabetes mellitus Uncle Family history of diabetes mellitus Father Prostate cancer Heart disease Osteoarthritis Mother Cardiac disorder Grandmother (Maternal) Myocardial infarction Other Asthma Cancer Hypertension No family history of adverse response to anesthesia No family history of bleeding disorder Stroke Denies family history of Ovarian cancer Breast cancer Colorectal cancer Social History Smoking Status: Never smoker Second Hand Exposure: No; Do You Dip or Chew Tobacco: Yes; Hx Alcohol Use: No Hx Substance Use: No Preferred Language: Wolof Communication Ability: Effective Communication Ability Comment: Unable to obtain due to patient condition. 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 caffeine: No (1/2 20 oz bottle of mountain dew. ) during the past year weight has: increased > 10 lbs Physical Activity Frequency: Daily Physical Activity Frequency Comment: walking, 1.5 miles daily. Seatbelt Use: always Do you think of yourself as: straight/heterosexual Gender Identity: Male Assistive Devices: Oxygen - Continuous Allergies Allergies Allergy/AdvReac Type Severity Reaction Status Date / Time clindamycin Allergy Intermediate SWELLING Verified 03/27/25 10:30 Iodinated Contrast Media Allergy Intermediate face/eye Verified 03/27/25 10:30 swelling Quinolones Allergy Intermediate HIVES Verified 03/27/25 10:30 tomato AdvReac Verified 03/27/25 10:30 Home Meds Home Medications Medication Instructions Recorded Confirmed lithium carbonate 300 mg tablet 300 mg PO AMHS 06/04/22 03/27/25 mirtazapine 30 mg tablet (Remeron) 30 mg PO UD 06/23/22 03/27/25 blood sugar diagnostic (OneTouch 08/06/22 03/27/25 Verio test strips) dutasteride 0.5 mg capsule 0.5 mg PO QAM 04/06/24 03/27/25 glucagon 3 mg/actuation nasal 3 mg intranasal ONCE PRN Severe 04/06/24 03/27/25 spray (Baqsimi) Hypoglycemia aripiprazole 5 mg tablet 5 mg PO DAILY 05/29/24 03/27/25 insulin glargine 100 unit/mL (3 12 unit subcut HS 07/19/24 03/27/25 mL) subcutaneous pen (Lantus Solostar U-100 Insulin) trazodone 100 mg tablet 100 mg PO HS 10/03/24 03/27/25 hydrocodone 7.5 mg-acetaminophen 1 tab PO Q6H 11/19/24 03/27/25 325 mg tablet lorazepam 0.5 mg tablet 0.5 mg PO DAILY PRN Seizure 11/23/24 03/27/25 Activity duloxetine 60 mg capsule,delayed 60 mg PO UD 11/27/24 03/27/25 release ferrous sulfate 325 mg (65 mg 325 mg PO .qod 11/27/24 03/27/25 iron) tablet clopidogrel 75 mg tablet (Plavix) 75 mg PO DAILY 12/03/24 03/27/25 arformoterol 15 mcg/2 mL solution 2 ml inhalation BID 01/16/25 03/27/25 for nebulization (Brovana) oxybutynin chloride 5 mg 5 mg PO DAILY 01/16/25 03/27/25 tablet,extended release 24 hr Oxygen Home 01/30/25 03/27/25 doxycycline hyclate 100 mg tablet 100 mg PO BID 03/01/25 03/27/25 magnesium oxide 400 mg (241.3 mg 400 mg PO DAILY 03/01/25 03/27/25 magnesium) tablet potassium chloride 10 mEq 10 meq PO DAILY 03/01/25 03/27/25 tablet,extended release prazosin 2 mg capsule 2 mg PO TID 03/01/25 03/27/25 nystatin 100,000 unit/gram topical 1 applic topical BID PRN Other 03/19/25 03/27/25 cream quetiapine 50 mg tablet,extended 50 mg PO DAILY 03/19/25 03/27/25 release 24 hr venlafaxine 150 mg 150 mg PO DAILY 03/19/25 03/27/25 capsule,extended release 24 hr propranolol 120 mg capsule,24 120 mg PO HS 03/26/25 03/27/25 hr,extended release Previous Rx's Medication Instructions Recorded fluticasone propionate 50 1 spray intranasal HS PRN allergy 03/16/23 mcg/actuation nasal symptoms #16 grams spray,suspension (Flonase Allergy Relief) FreeStyle Rosalie 2 [place] (flash #1 ea 05/13/23 glucose scanning reader) blood sugar diagnostic (OneTouch #150 ea 11/22/23 Verio test strips) blood-glucose meter (OneTouch #1 ea 11/22/23 Verio Reflect Meter) insulin syringe-needle U-100 1 mL #300 ea 01/02/24 30 gauge x 1/2" (BD Insulin Syringe Ultra-Fine) lancets 33 gauge (OneTouch Delica #150 ea 11/22/23 Plus Lancet) albuterol sulfate 90 mcg/actuation 2 inh inhalation Q6H PRN shortness 02/24/24 aerosol inhaler (Ventolin HFA) of breath or wheezing #6.7 grams FreeStyle Rosalie 2 Sensor (flash #6 ea 05/02/24 glucose sensor) ipratropium 0.5 mg-albuterol 3 mg 3 ml inhalation QID PRN wheezing 07/31/24 (2.5 mg base)/3 mL nebulization #90 mL soln nebulizers (Compact Compressor #1 ea 07/31/24 Nebulizer) Botox 200 unit injection See Rx Instructions IM .COMPLEX #1 09/18/24 (onabotulinumtoxinA) ea rosuvastatin 20 mg tablet 20 mg PO QAM #90 tabs 09/19/24 pantoprazole 40 mg tablet,delayed 40 mg PO BID #60 tabs 09/21/24 release pen needle, diabetic 32 gauge x #100 ea 10/23/24 5/32" (BD Vy 2nd Gen Pen Needle) bumetanide 1 mg tablet 1 mg PO QAM #30 tabs 10/26/24 vitamin B complex (Vitamins B 1 cap PO QAM #30 caps 10/26/24 Complex capsule) tirzepatide 2.5 mg/0.5 mL 2.5 mg (0.5 mL) subcut Q7D #2 mL 11/22/24 subcutaneous pen injector (Unruly) levetiracetam 1,000 mg tablet 1,000 mg PO Q12H #60 tabs 11/26/24 aspirin 81 mg tablet,delayed 81 mg PO QAM #90 tabs 11/27/24 release desmopressin 0.2 mg tablet 0.4 mg (2 x 0.2 mg) PO BID #120 11/30/24 tabs metoprolol succinate 25 mg 25 mg PO HS #90 tabs 11/30/24 tablet,extended release 24 hr somatropin 5 mg/1.5 mL (3.3 mg/mL) 0.3 mg (0.09 mL) subcut QPM #2 11/30/24 subcutaneous pen injector syringes (Norditropin FlexPro) budesonide 0.5 mg/2 mL suspension 0.5 mg (2 mL) inhalation DAILY #60 12/04/24 for nebulization mL lisinopril 40 mg tablet 40 mg PO DAILY #90 tabs 12/06/24 divalproex 500 mg tablet,delayed 1,000 mg (2 x 500 mg) PO DAILY #60 12/14/24 release tabs lacosamide 150 mg tablet 150 mg PO BID #60 tabs 12/26/24 famotidine 20 mg tablet (Acid 20 mg PO DAILY 6 weeks #42 tabs 01/11/25 Manager Market (famotidine)) metformin 1,000 mg tablet 1,000 mg PO BID #180 tabs 02/26/25 rimegepant 75 mg disintegrating 75 mg PO DAILY PRN Migraine 02/28/25 tablet (Nurtec ODT) Headache #16 tabs testosterone 2 pump topical PM #75 grams 03/18/25 formoterol fumarate 20 mcg/2 mL 20 mcg (2 mL) NEB BIDR #60 vials 03/24/25 solution for nebulization (Perforomist) levothyroxine 150 mcg tablet 150 mcg PO DAILYBB #30 tabs 03/24/25 (Synthroid) prednisone 10 mg tablet 10 mg PO DIRECTED #30 tabs 03/24/25 acetylcysteine 200 mg/mL (20 %) 2 ml inhalation BID PRN Chest 03/26/25 solution congestion #100 mL cholecalciferol (vitamin D3) 50 50 mcg PO QPM #90 caps 03/26/25 mcg (2,000 unit) capsule sodium chloride 7 % for 1 inh inhalation BID #240 mL 03/26/25 nebulization tiotropium bromide 2.5 2 puff inhalation DAILY #4 grams 03/26/25 mcg/actuation mist for inhalation (Spiriva Respimat) hydrocortisone 10 mg tablet 10 mg PO UD #135 tabs 03/28/25 apixaban 5 mg tablet (Eliquis) 5 mg PO Q12H #180 tabs 04/01/25 Results & Data (ED) Home Medications Current Medication List: was personally reviewed by me Laboratory Data Attestation: I reviewed the patient's lab results. 03/29/25 07:16 03/29/25 07:16 Lab Results 05/07/25 05/07/25 05/07/25 Range/Units 11:21 11:31 11:32 WBC 18.60 H (4.8-10.8) K/ul RBC 5.00 (4.70-6.10) M/uL Hgb 15.0 (14.0-18.0) g/dl POC Hgb 15.3 (14.0-18.0) g/dl Hct 44.5 (42.0-52.0) % POC Hct 45 (42-52) % MCV 89.0 (80.0-100.0) fL MCH 30.0 (25.0-34.0) pg MCHC 33.7 (32.0-36.0) g/dL RDW Std Deviation 48.4 H (36.4-46.3) fL RDW Coeff of Yanira 15.0 H (11.5-14.5) % Plt Count 212 (130-400) K/uL MPV 8.9 L (9.4-12.4) fL Immature Gran % (Auto) 4.8 % Neut % (Auto) 69.5 % Lymph % (Auto) 17.4 % [place] % (Auto) 7.7 % Eos % (Auto) 0.1 % Baso % (Auto) 0.5 % Neut # (Auto) 12.92 H (1.40-6.50) K/uL Lymph # (Auto) 3.23 (1.20-3.40) K/uL [place] # (Auto) 1.43 H (0.11-0.59) K/uL Eos # (Auto) 0.02 (0.00-0.50) K/uL Baso # (Auto) 0.10 (0.00-0.20) K/uL Immature Gran # (Auto) 0.90 H (0.01-0.20) K/uL POC pH (7.35-7.45) POC pCO2 (35-46) mmHg POC pO2 (80-95) mmHg POC HCO3 (19-24) clovis/L POC Base Excess (-9-1.8) clovis/L POC ABG O2 Sat (90-95) % POC Sodium 137 (135-144) mmol/L Sodium 140 (136-145) mmol/L POC Potassium 4.2 (3.3-5.0) mmol/L Potassium 4.2 (3.5-5.1) mmol/L POC Chloride 97 L (101-112) mmol/L Chloride 97 L (98-107) mmol/L Carbon Dioxide 22 (21-32) mmol/L POC Total CO2 19 L (24-31) mmol/L Anion Gap 21 H (3-11) POC Anion Gap 26.0 H (16-25) mmol/L POC BUN 24 H (7-18) mg/dl BUN 26 H (6-23) mg/dl Creatinine 1.21 (0.6-1.4) mg/dl POC Creatinine 1.2 (0.6-1.3) mg/dl Est Cr Clr Drug Dosing 88.1 ml/min eGFR 70.27 BUN/Creatinine Ratio 21.5 H (10-20) Glucose 108 H (70-99(Fasting)) mg/dl POC Glucose 128 H (70-99) mg/dl POC Glucose (other) 107 H (70-99) mg/dl Calcium 9.7 (8.6-10.3) mg/dl POC Ioniz Calcium Jeny 1.20 (1.12-1.32) mmol/l Phosphorus 5.7 H (2.5-4.9) mg/dl Magnesium 2.1 (1.7-2.4) mg/dl Total Bilirubin 0.3 (0.2-1.0) mg/dl AST 10 L (13-39) U/L ALT 24 (7-52) U/L Alkaline Phosphatase 63 (34-104) U/L Total Protein 6.5 (6.0-8.3) gm/dl Albumin 4.3 (3.4-5.0) gm/dl Globulin 2.2 L (2.5-4.0) gm/dl Albumin/Globulin Ratio 2.0 (0.9-2) [place] (0.6-1.2) mmol/L 03/27/25 03/27/25 03/27/25 Range/Units 16:26 21:03 23:14 WBC (4.8-10.8) K/ul RBC (4.70-6.10) M/uL Hgb (14.0-18.0) g/dl POC Hgb (14.0-18.0) g/dl Hct (42.0-52.0) % POC Hct (42-52) % MCV (80.0-100.0) fL MCH (25.0-34.0) pg MCHC (32.0-36.0) g/dL RDW Std Deviation (36.4-46.3) fL RDW Coeff of Yanira (11.5-14.5) % Plt Count (130-400) K/uL MPV (9.4-12.4) fL Immature Gran % (Auto) % Neut % (Auto) % Lymph % (Auto) % [place] % (Auto) % Eos % (Auto) % Baso % (Auto) % Neut # (Auto) (1.40-6.50) K/uL Lymph # (Auto) (1.20-3.40) K/uL [place] # (Auto) (0.11-0.59) K/uL Eos # (Auto) (0.00-0.50) K/uL Baso # (Auto) (0.00-0.20) K/uL Immature Gran # (Auto) (0.01-0.20) K/uL POC pH (7.35-7.45) POC pCO2 (35-46) mmHg POC pO2 (80-95) mmHg POC HCO3 (19-24) clovis/L POC Base Excess (-9-1.8) clovis/L POC ABG O2 Sat (90-95) % POC Sodium (135-144) mmol/L Sodium (136-145) mmol/L POC Potassium (3.3-5.0) mmol/L Potassium (3.5-5.1) mmol/L POC Chloride (101-112) mmol/L Chloride (98-107) mmol/L Carbon Dioxide (21-32) mmol/L POC Total CO2 (24-31) mmol/L Anion Gap (3-11) POC Anion Gap (16-25) mmol/L POC BUN (7-18) mg/dl BUN (6-23) mg/dl Creatinine (0.6-1.4) mg/dl POC Creatinine (0.6-1.3) mg/dl Est Cr Clr Drug Dosing ml/min eGFR BUN/Creatinine Ratio (10-20) Glucose (70-99(Fasting)) mg/dl POC Glucose 96 127 H 114 H (70-99) mg/dl POC Glucose (other) (70-99) mg/dl Calcium (8.6-10.3) mg/dl POC Ioniz Calcium Jeny (1.12-1.32) mmol/l Phosphorus (2.5-4.9) mg/dl Magnesium (1.7-2.4) mg/dl Total Bilirubin (0.2-1.0) mg/dl AST (13-39) U/L ALT (7-52) U/L Alkaline Phosphatase (34-104) U/L Total Protein (6.0-8.3) gm/dl Albumin (3.4-5.0) gm/dl Globulin (2.5-4.0) gm/dl Albumin/Globulin Ratio (0.9-2) [place] (0.6-1.2) mmol/L 03/28/25 03/28/25 03/28/25 Range/Units 03:58 06:32 06:35 WBC 15.02 H (4.8-10.8) K/ul RBC 4.32 L (4.70-6.10) M/uL Hgb 12.7 L (14.0-18.0) g/dl POC Hgb (14.0-18.0) g/dl Hct 38.3 L (42.0-52.0) % POC Hct (42-52) % MCV 88.7 (80.0-100.0) fL MCH 29.4 (25.0-34.0) pg MCHC 33.2 (32.0-36.0) g/dL RDW Std Deviation 48.8 H (36.4-46.3) fL RDW Coeff of Yanira 14.9 H (11.5-14.5) % Plt Count 173 (130-400) K/uL MPV 8.9 L (9.4-12.4) fL Immature Gran % (Auto) % Neut % (Auto) % Lymph % (Auto) % [place] % (Auto) % Eos % (Auto) % Baso % (Auto) % Neut # (Auto) (1.40-6.50) K/uL Lymph # (Auto) (1.20-3.40) K/uL [place] # (Auto) (0.11-0.59) K/uL Eos # (Auto) (0.00-0.50) K/uL Baso # (Auto) (0.00-0.20) K/uL Immature Gran # (Auto) (0.01-0.20) K/uL POC pH (7.35-7.45) POC pCO2 (35-46) mmHg POC pO2 (80-95) mmHg POC HCO3 (19-24) clovis/L POC Base Excess (-9-1.8) clovis/L POC ABG O2 Sat (90-95) % POC Sodium (135-144) mmol/L Sodium 139 (136-145) mmol/L POC Potassium (3.3-5.0) mmol/L Potassium 3.8 (3.5-5.1) mmol/L POC Chloride (101-112) mmol/L Chloride 100 (98-107) mmol/L Carbon Dioxide 36 H (21-32) mmol/L POC Total CO2 (24-31) mmol/L Anion Gap 3 (3-11) POC Anion Gap (16-25) mmol/L POC BUN (7-18) mg/dl BUN 31 H (6-23) mg/dl Creatinine 0.87 D (0.6-1.4) mg/dl POC Creatinine (0.6-1.3) mg/dl Est Cr Clr Drug Dosing 123.9 ml/min eGFR 101.27 BUN/Creatinine Ratio 35.6 H (10-20) Glucose 100 H (70-99(Fasting)) mg/dl POC Glucose 104 H (70-99) mg/dl POC Glucose (other) (70-99) mg/dl Calcium 8.6 (8.6-10.3) mg/dl POC Ioniz Calcium Jeny (1.12-1.32) mmol/l Phosphorus (2.5-4.9) mg/dl Magnesium (1.7-2.4) mg/dl Total Bilirubin (0.2-1.0) mg/dl AST (13-39) U/L ALT (7-52) U/L Alkaline Phosphatase (34-104) U/L Total Protein (6.0-8.3) gm/dl Albumin (3.4-5.0) gm/dl Globulin (2.5-4.0) gm/dl Albumin/Globulin Ratio (0.9-2) [place] 0.2 L (0.6-1.2) mmol/L 03/28/25 03/28/2503/28/25 Range/Units 07:23 08:07 11:26 WBC (4.8-10.8) K/ul RBC (4.70-6.10) M/uL Hgb (14.0-18.0) g/dl POC Hgb 11.9 L (14.0-18.0) g/dl Hct (42.0-52.0) % POC Hct 35 L (42-52) % MCV (80.0-100.0) fL MCH (25.0-34.0) pg MCHC (32.0-36.0) g/dL RDW Std Deviation (36.4-46.3) fL RDW Coeff of Yanira (11.5-14.5) % Plt Count (130-400) K/uL MPV (9.4-12.4) fL Immature Gran % (Auto) % Neut % (Auto) % Lymph % (Auto) % [place] % (Auto) % Eos % (Auto) % Baso % (Auto) % Neut # (Auto) (1.40-6.50) K/uL Lymph # (Auto) (1.20-3.40) K/uL [place] # (Auto) (0.11-0.59) K/uL Eos # (Auto) (0.00-0.50) K/uL Baso # (Auto) (0.00-0.20) K/uL Immature Gran # (Auto) (0.01-0.20) K/uL POC pH 7.45 (7.35-7.45) POC pCO2 48 H (35-46) mmHg POC pO2 48 L (80-95) mmHg POC HCO3 34 H (19-24) clovis/L POC Base Excess 10.0 H (-9-1.8) clovis/L POC ABG O2 Sat 85.0 L (90-95) % POC Sodium 137 (135-144) mmol/L Sodium (136-145) mmol/L POC Potassium 3.6 (3.3-5.0) mmol/L Potassium (3.5-5.1) mmol/L POC Chloride (101-112) mmol/L Chloride (98-107) mmol/L Carbon Dioxide (21-32) mmol/L POC Total CO2 35 H (24-31) mmol/L Anion Gap (3-11) POC Anion Gap (16-25) mmol/L POC BUN (7-18) mg/dl BUN (6-23) mg/dl Creatinine (0.6-1.4) mg/dl POC Creatinine (0.6-1.3) mg/dl Est Cr Clr Drug Dosing ml/min eGFR BUN/Creatinine Ratio (10-20) Glucose (70-99(Fasting)) mg/dl POC Glucose 82 88 (70-99) mg/dl POC Glucose (other) (70-99) mg/dl Calcium (8.6-10.3) mg/dl POC Ioniz Calcium Jeny (1.12-1.32) mmol/l Phosphorus (2.5-4.9) mg/dl Magnesium (1.7-2.4) mg/dl Total Bilirubin (0.2-1.0) mg/dl AST (13-39) U/L ALT (7-52) U/L Alkaline Phosphatase (34-104) U/L Total Protein (6.0-8.3) gm/dl Albumin (3.4-5.0) gm/dl Globulin (2.5-4.0) gm/dl Albumin/Globulin Ratio (0.9-2) [place] (0.6-1.2) mmol/L Administered Medications Discontinued Medications Acetaminophen (Acetaminophen 500 Mg Tab) 1,000 mg PO Q8H PRN PRN Reason: Pain or Fever Stop: 04/26/25 23:19 Last Admin: 03/28/25 20:23 Dose: 1,000 mg Documented By: Admin: 03/27/25 23:36 Dose: 1,000 mg Documented By: TABBY Aripiprazole (Aripiprazole 5 Mg Tab) 5 mg PO DAILY [facility] Stop: 04/27/25 08:59 Last Admin: 03/29/25 08:07 Dose: 5 mg Documented By: Admin: 03/28/25 08:53 Dose: Not Given Documented By: ELISSA [facility]irin (Aspirin 81 Mg Ectab) [facility] [place]: 04/27/25 08:59 Last Admin: 03/29/25 08:07 Dose: 81 mg Documented By: Admin: 03/28/25 08:53 Dose: Not Given Documented By: ELISSA Budesonide (Budesonide 0.5 Mg/2 Ml Vial (Pulmicort)) 0.5 mg INH DAILY [facility] Stop: 04/27/25 08:59 Last Admin: 03/29/25 07:18 Dose: 0.5 mg Documented By: Admin: 03/28/25 07:35 Dose: 0.5 mg Documented By: KOKO Clopidogrel Bisulfate (Clopidogrel Bisulfate 75 Mg Tab) 75 mg PO DAILY [facility] Stop: 04/27/25 08:59 Last Admin: 03/29/25 08:07 Dose: 75 mg Documented By: Admin: 03/28/25 08:53 Dose: Not Given Documented By: AAL Desmopressin Acetate (Desmopressin Acetate 0.1 Mg Tab) 0.4 mg PO BID [facility] Stop: 04/26/25 20:59 Last Admin: 03/29/25 08:09 Dose: 0.4 mg Documented By: Admin: 03/28/25 20:15 Dose: 0.4 mg Documented By: Admin: 03/28/25 08:53 Dose: Not Given Documented By: Admin: 03/27/25 21:19 Dose: 0.4 mg Documented By: TABBY Divalproex Sodium (Divalproex Delay Release 500 Mg Tab) 1,000 mg PO DAILY [facility] Stop: 04/27/25 08:59 Last Admin: 03/29/25 08:09 Dose: 1,000 mg Documented By: Admin: 03/28/25 08:53 Dose: Not Given Documented By: ELISSA Duloxetine HCl (Duloxetine Hcl 60 Mg Cap) 60 mg PO BID [facility] Stop: 04/26/25 20:59 Last Admin: 03/29/25 08:07 Dose: 60 mg Documented By: Admin: 03/28/25 20:17 Dose: 60 mg Documented By: Admin: 03/28/25 08:53 Dose: Not Given Documented By: Admin: 03/27/25 21:19 Dose: 60 mg Documented By: TABBY Famotidine (Famotidine 20 Mg Tab) 20 mg PO DAILY [facility] Stop: 04/27/25 08:59 Last Admin: 03/29/25 08:05 Dose: 20 mg Documented By: Admin: 03/28/25 08:53 Dose: Not Given Documented By: ELISSA Finasteride (Finasteride 5 Mg Tab) 5 mg PO QAM [facility] Stop: 04/27/25 08:59 Last Admin: 03/29/25 08:08 Dose: 5 mg Documented By: Admin: 03/28/25 08:53 Dose: Not Given Documented By: ELISSA Hydrocortisone (Hydrocortisone 10 Mg Tab) 20 mg PO QAM [facility] Stop: 04/27/25 08:59 Last Admin: 03/29/25 08:06 Dose: 20 mg Documented By: Admin: 03/28/25 08:53 Dose: Not Given Documented By: ELISSA Hydrocortisone (Hydrocortisone 10 Mg Tab) 10 mg PO DAILY@1330 [facility] Stop: 04/27/25 13:29 Last Admin: 03/29/25 12:18 Dose: 10 mg Documented By: Admin: 03/28/25 14:55 Dose: Not Given Documented By: ELISSA Hydrocortisone Sodium Succinate (Hydrocortisone Sod Succinate 100 Mg/2 Ml Vial) 50 mg IV NOW STA Stop: 03/27/25 13:08 Last Admin: 03/27/25 13:35 Dose: 50 mg Documented By: DEBBIE Sodium Chloride (Nss) 500 mls @ 999 mls/hr IV .Q31M ONE Stop: 03/27/25 12:02 Last Infusion: 03/27/25 12:30 Dose: Infused Documented By: Admin: 03/27/25 11:35 Dose: 999 mls/hr Documented By: DEBBIE Sodium Chloride (Nss) 500 mls @ 999 mls/hr IV .Q31M ONE Stop: 03/27/25 12:02 Last Infusion: 03/27/25 12:30 Dose: Infused Documented By: Admin: 03/27/25 11:35 Dose: 999 mls/hr Documented By: DEBBIE Acetaminophen (Ofirmev) 1,000 mg in 100 mls @ 400 mls/hr IV NOW STA Stop: 03/27/25 12:12 Last Infusion: 03/27/25 12:41 Dose: Infused Documented By: Admin: 03/27/25 12:25 Dose: 400 mls/hr Documented By: MAY Lacosamide 150 mg/ Sodium (Chloride) 65 mls @ 130 mls/hr IV ONE STA Stop: 03/28/25 05:05 Last Infusion: 03/28/25 05:36 Dose: Infused Documented By: Admin: 03/28/25 04:57 Dose: 130 mls/hr Documented By: LEONARDO Insulin Aspart (Insulin Aspart Per Unit Charge) 0 units SC ACHS [facility] Stop: 04/26/25 20:59 Last Admin: 03/29/25 12:17 Dose: 2 units Documented By: COBY Co-signed By: CELSO Admin: 03/29/25 08:04 Dose: 5 units Documented By: COBY Co-signed By: CELSO Admin: 03/28/25 20:47 Dose: Not Given Documented By: Admin: 03/28/25 17:46 Dose: 1 units Documented By: ELISSA Co-signed By: CELSO Admin: 03/28/25 12:59 Dose: Not Given Documented By: Admin: 03/28/25 08:52 Dose: Not Given Documented By: Admin: 03/27/25 21:13 Dose: Not Given Documented By: TABBY Insulin Glargine (Lantus Per Unit Charge) 5 units SC ONE ONE Stop: 03/27/25 21:46 Last Admin: 03/27/25 22:01 Dose: 5 units Documented By: TABBY Co-signed By: RYLEY Insulin Glargine (Lantus Per Unit Charge) 0 units SC [facility]; Protocol Stop: 04/27/25 20:59 Last Admin: 03/28/25 21:16 Dose: Not Given Documented By: FLACA Lacosamide (Lacosamide 50 Mg Tablet) 150 mg PO BID [facility] Stop: 04/26/25 20:59 Last Admin: 03/27/25 21:19 Dose: 150 mg Documented By: TABBY Lacosamide (Lacosamide 50 Mg Tablet) 150 mg PO BID [facility] Stop: 04/27/25 20:59 Last Admin: 03/29/25 09:27 Dose: 150 mg Documented By: Admin: 03/28/25 20:15 Dose: 150 mg Documented By: FLACA Levetiracetam (Levetiracetam 500 Mg/5 Ml Vial) 4,500 mg IV NOW STA Stop: 03/27/25 11:33 Last Admin: 03/27/25 11:48 Dose: 4,500 mg Documented By: DEBBIE Levetiracetam (Levetiracetam 500 Mg/5 Ml Vial) 1,000 mg IV NOW STA Stop: 03/28/25 04:24 Last Admin: 03/28/25 04:50 Dose: 1,000 mg Documented By: LEONARDO Levetiracetam (Levetiracetam 500 Mg Tab) 1,000 mg PO BID [facility] Stop: 04/27/25 20:59 Last Admin: 03/29/25 08:07 Dose: 1,000 mg Documented By: Admin: 03/28/25 20:16 Dose: 1,000 mg Documented By: FLACA Levothyroxine Sodium (Levothyroxine Sodium 150 Mcg Tablet) 150 mcg PO DAILYBB [facility] Stop: 04/27/25 06:29 Last Admin: 03/29/25 06:23 Dose: 150 mcg Documented By: Admin: 03/28/25 07:28 Dose: Not Given Documented By: ELISSA Moosup Carbonate (Moosup Carbonate 300 Mg Tab) 300 mg PO BID [facility] Stop: 04/26/25 20:59 Last Admin: 03/29/25 08:07 Dose: 300 mg Documented By: Admin: 03/28/25 20:16 Dose: 300 mg Documented By: Admin: 03/28/25 08:53 Dose: Not Given Documented By: Admin: 03/27/25 21:19 Dose: 300 mg Documented By: TABBY Lorazepam (Lorazepam 2 Mg/1 Ml Vial) 1 mg IV NOW STA Stop: 03/27/25 12:51 Last Admin: 03/27/25 12:55 Dose: 1 mg Documented By: DEBBIE Lorazepam (Lorazepam 2 Mg/1 Ml Vial) Confirm Administered Dose 2 mg .ROUTE .STK- MED ONE Stop: 03/27/25 12:52 Last Admin: 03/27/25 12:55 Dose: Not Given Documented By: DEBBIE Lorazepam (Lorazepam 2 Mg/1 Ml Vial) 4 mg IV ONCE PRN PRN Reason: seizure Stop: 04/26/25 19:20 Last Admin: 03/28/25 04:19 Dose: 4 mg Documented By: Admin: 03/28/25 04:08 Dose: 4 mg Documented By: TABBY Lorazepam (Lorazepam 2 Mg/1 Ml Vial) 4 mg IV NOW STA Stop: 03/28/25 04:02 Last Admin: 03/28/25 04:46 Dose: Not Given Documented By: FLACA Lorazepam (Lorazepam 2 Mg/1 Ml Vial) 4 mg IV ONCE PRN PRN Reason: seizure Last Admin: 03/28/25 14:11 Dose: 4 mg Documented By: ELISSA Metoprolol Succinate (Metoprolol Succ 25mg Ext Rel Tab) 25 mg PO HS [facility] Stop: 04/26/25 20:59 Last Admin: 03/28/25 20:17 Dose: 25 mg Documented By: Admin: 03/27/25 21:19 Dose: 25 mg Documented By: TABBY Mirtazapine (Mirtazapine Tab 15 Mg Tab) 30 mg PO DAILY [facility] Stop: 04/27/25 08:59 Last Admin: 03/29/25 08:08 Dose: 30 mg Documented By: Admin: 03/28/25 08:53 Dose: Not Given Documented By: ELISSA Miscellaneous (Remove Lidoderm Patch) 1 each N/A DAILY@2100 [facility] Stop: 04/27/25 20:59 Last Admin: 03/28/25 20:18 Dose: 1 each Documented By: FLACA Quiroga (Remove Nicoderm Patch) 1 each N/A DAILY@0859 [facility] Stop: 04/28/25 08:58 Last Admin: 03/29/25 09:28 Dose: 1 each Documented By: COBY Nicotine (Nicotine 21 Mg/24 Hr Tdsy) [facility] [place]: 04/28/25 08:59 Last Admin: 03/29/25 09:28 Dose: 1 patch Documented By: COBY Ondansetron HCl (Ondansetron Inj 2 Mg/Ml 2 Ml Vial) 4 mg IV NOW STA Stop: 03/27/25 11:59 Last Admin: 03/27/25 12:26 Dose: 4 mg Documented By: MAY Quetiapine Fumarate (Quetiapine Fumarate 50 Mg Tabcr) 50 mg PO DAILY [facility] Stop: 04/27/25 08:59 Last Admin: 03/29/25 08:09 Dose: 50 mg Documented By: Admin: 03/28/25 08:53 Dose: Not Given Documented By: ELISSA Rosuvastatin Calcium (Rosuvastatin Calcium 20 Mg Tab) 20 mg PO QAM [facility] Stop: 04/27/25 08:59 Last Admin: 03/29/25 08:08 Dose: 20 mg Documented By: Admin: 03/28/25 08:54 Dose: Not Given Documented By: ELISSA Trazodone HCl (Trazodone Hcl 100 Mg Tab) 100 mg PO HS [facility] Stop: 04/26/25 20:59 Last Admin: 03/28/25 20:17 Dose: 100 mg Documented By: Admin: 03/27/25 21:19 Dose: 100 mg Documented By: TABBY Venlafaxine HCl (Venlafaxine Hcl Xr 150 Mg Capxr) 150 mg PO DAILY [facility] Stop: 04/27/25 08:59 Last Admin: 03/29/25 08:07 Dose: 150 mg Documented By: Admin: 03/28/25 08:54 Dose: Not Given Documented By: AAL Imaging Data Radiologist's Impression: Chest X-Ray 03/27/25 11:42 XR chest 1V portable CLINICAL HISTORY: seizure COMPARISON STUDY: 03/19/2025 FINDINGS: Stable cardiac recorder. Stable mild cardiomegaly without pulmonary vascular congestion. Inspiration is shallow. There is interval mild stranding at the left lung base. No other consolidation or pleural effusion. No pneumothorax. IMPRESSION: Likely atelectasis left lung base. No other acute findings seen. ACT 112: Negative or not required by law. Electronically signed by: Keon Crump M.D. 03/27/2025 12:[address] 03/27/25 11:58 CT SCAN OF THE BRAIN WITHOUT IV CONTRAST CLINICAL HISTORY: Seizures. COMPARISON STUDY: MRI of the brain January 20, [address] January 18, 2025. TECHNIQUE: Unenhanced axial CT scan of the brain was performed from the vertex to the skull base. A dose lowering technique was utilized adhering to the principles of ALARA. CT DOSE: 703.85 mGy.cm FINDINGS: Brain parenchyma: No acute intracranial hemorrhage is present. A 5.7 x 4 cm retrocerebellar CSF signal intensity focus is unchanged and may represent a patrick cisterna magna or arachnoid cyst Ventricles, sulci, cisterns: There is no hydrocephalus. The basal cisterns are patent. Calvarium: No calvarial fractures. Sinuses and mastoids: The visualized paranasal sinuses are clear. The mastoid air cells are well pneumatized. Orbits: The bony orbits are grossly intact. IMPRESSION: No acute intracranial findings. No change in appearance of the brain. ACT 112: Negative or not required by law. Electronically signed by: Aditya Foley M.D. 03/27/2025 12:59 PM Discharge Plan Visit Data Chief Complaint: Seizure Stated Complaint: SEIZURE ED Provider: Curtis Britton Discharge Problem: Witnessed seizure-like activity, Acute dehydration Patient Disposition: Admitted As Inpatient Condition: Fair Discharge Instructions Interventions: ED Discharge Assessment Last Done: 03/27/25 15:47
[2025-03-27] MEDS: SODIUM CHLORIDE 0.9% 500 ML IV ONE ×2 (11:35)
[2025-03-27 11:43] LABS: iSTAT Creatinine 1.2 mg/dl (0.6-1.3); iSTAT Hemoglobin 15.3 g/dl (14.0-18.0); iSTAT Ionized Calcium 1.2 mmol/l (1.12-1.32); iSTAT Potassium 4.2 mmol/L (3.3-5.0)
[2025-03-27 11:46] LABS: Basophils % (auto) 0.5 %; Eosinophils # (auto) 0.02 K/uL (0.00-0.50); Eosinophils % (auto) 0.1 %; Hematocrit (blood only) 44.5 % (42.0-52.0); Immature Granulocytes % (auto) 4.8 %; Lymphocytes # (auto) 3.23 K/uL (1.20-3.40); Lymphocytes % (auto) 17.4 %; Mean Corpuscular Hgb Conc 33.7 g/dL (32.0-36.0); Mean Platelet Volume 8.9 fL (9.4-12.4); Monocytes # (auto) 1.43 K/uL (0.11-0.59); Monocytes % (auto) 7.7 %; Neutrophils # (auto) 12.92 K/uL (1.40-6.50); Neutrophils % (auto) 69.5 %; Platelet Count 212 K/uL (130-400); RDW Standard Deviation 48.4 fL (36.4-46.3)
[2025-03-27] MEDS: levETIRAcetam 500 MG/5 ML VIAL IV STA (11:48)
[2025-03-27 12:03] LABS: Albumin Level 4.3 gm/dl (3.4-5.0); BUN Creatinine Ratio 21.5 (10-20); Bilirubin,Total 0.3 mg/dl (0.2-1.0); Calcium 9.7 mg/dl (8.6-10.3); Creatinine Clr Calc Pharmacy 88.1 ml/min; Globulin 2.2 gm/dl (2.5-4.0); Magnesium 2.1 mg/dl (1.7-2.4); Phosphorus 5.7 mg/dl (2.5-4.9); Potassium 4.2 mmol/L (3.5-5.1); Total Protein 6.5 gm/dl (6.0-8.3)
--- NOTE | 2025-03-27 12:18 | XRay Report ---
XR chest 1V portable CLINICAL HISTORY: seizure COMPARISON STUDY: 03/19/2025 FINDINGS: Stable cardiac recorder. Stable mild cardiomegaly without pulmonary vascular congestion. In spiration is shallow. There is interval mild stranding at the left lung base. No other consolidation or pleural effusion. No pneumothorax. IMPRESSION: Likely atelectasis left lung base. No other acute findings seen. ACT 112: Negative or not required by law. Electronically signed by: Keon Crump M.D. 03/27/2025 12:16 PM
[2025-03-27] MEDS: ACETAMINOPHEN 1,000 MG/100 ML VIAL IV STA (12:25)
[2025-03-27] MEDS: ONDANSETRON INJ 2 MG/ML 2 ML VIAL IV STA (12:26)
[2025-03-27] MEDS: LORazepam 2 MG/1 ML VIAL ONE (12:55)
[2025-03-27] MEDS: LORazepam 2 MG/1 ML VIAL IV STA (12:55)
--- NOTE | 2025-03-27 13:00 | CT Scan Report ---
CT SCAN OF THE BRAIN WITHOUT IV CONTRAST CLINICAL HISTORY: Seizures. COMPARISON STUDY: MRI of the brain January 20, [address] January 18, 2025. TECHNIQUE: Unenhanced axial CT scan of the brain was performed from the vertex to the skull base. A dose lowering technique was utilized adhering to the principles of ALARA. CT DOSE: 703.85 mGy.cm FINDINGS: Brain parenchyma: No acute intracranial hemorrhage is present. A 5.7 x 4 cm retrocerebellar CSF signa l intensity focus is unchanged and may represent a patrick cisterna magna or arachnoid cyst Ventricles, sulci, cisterns: There is no hydrocephalus. The basal cisterns are patent. Calvarium: No calvarial fractures. Sinuses and mastoids: The visualized paranasal sinuses are clear. The mastoid air cells are well pneu matized. Orbits: The bony orbits are grossly intact. IMPRESSION: No acute intracranial findings. No change in appearance of the brain. ACT 112: Negative or not required by law. Electronically signed by: Aditya Foley M.D. 03/27/2025 12:59 PM
[2025-03-27] MEDS: HYDROCORTISONE SOD SUCCINATE 100 MG/2 ML VIAL IV STA (13:35)
[2025-03-27] MEDS ORDERED: GLUCOSE 10 TAB/TUBE PO PRN (16:16)
[2025-03-27] MEDS ORDERED: GLUCOSE 40% GEL 15 GM TUBE PO PRN (16:16)
[2025-03-27] MEDS ORDERED: ALBUTEROL HFA 8 GM INHALER INH PRN (16:16)
[2025-03-27] MEDS ORDERED: PHARMACY GLYCEMIC MGMT CONSULT PRN (16:16)
[2025-03-27] MEDS ORDERED: GLUCAGON FOR INJ 1 MG VIAL SQ PRN (16:16)
[2025-03-27] MEDS ORDERED: CARBOHYDRATES FOR HYPOGLYCEMIA PO PRN (16:16)
[2025-03-27] MEDS ORDERED: DEXTROSE 50% 50 ML SYRINGE IV PRN (16:16)
[2025-03-27] MEDS ORDERED: ONDANSETRON INJ 2 MG/ML 2 ML VIAL IV PRN (16:16)
--- NOTE | 2025-03-27 16:30 | Electrocardiogram Report ---
Test Reason : Blood Pressure : */* mmHG Vent. Rate : 110 BPM Atrial Rate : 110 BPM P-R Int : 138 ms QRS Dur : 86 ms QT Int : 330 ms P-R-T Axes : 55 -20 72 degrees QTcB Int : 446 ms Sinus tachycardia Poor R wave progression, consider anterior OH vs. lead placement vs. LVH When compared with ECG of 19-Mar-2025 12:09, No significant change was found Confirmed by Og Cooper ([id number]) on 03/27/2025 4:29:50 PM Referred By: Confirmed By: Og Cooper
--- NOTE | 2025-03-27 17:13 | History & Physical Report ---
Date of Service March 27, 2025 Assessment & Plan (1) Seizure disorder: (2) Chronic adrenal insufficiency: (3) Chronic narcotic dependence: (4) Bipolar disorder: (5) Type 2 diabetes mellitus: Plan This is a 54-year-old male who was just discharged from the hospital 3 days ago after being treated for COPD flare and pneumonia, went to his PCP appointment and was found to have multiple seizures. He was thus transferred to the ER. He was also noted to be slightly hypotensive upon presentation 1. Generalized tonic-clonic seizure. The patient has a history of seizure disorder versus pseudoseizure The patient was given IV Keppra and IV Ativan She is not in status epilepticus Will consult neurology Will order EEG Will continue p.o. Depakote, p.o. Keppra, p.o. Vimpat for now Seizure precautions 2. Hypotension The patient initially presented with a blood pressure of 80/60. Per ED physician, the patient appeared to be clinically dehydrated and was thus given a liter of IV fluid The patient was also given 50 mg of IV hydrocortisone His blood pressure has improved Will continue to monitor 3. Leukocytosis Most likely steroid induced as the patient was recently discharged on p.o. prednisone taper 4. 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 Obstructive sleep apnea Continue CPAP 6. Bipolar disorder Continue lithium, Abilify, Remeron, Seroquel, trazodone, venlafaxine 7. Recent COPD/pneumonia Patient is not wheezing Stop prednisone Admission and Anticipated Discharge Date Admission Date: March 27, 2025 History of Present Illness Chief Complaint: Seizure Primary Care Provider: Larry Amaral MD This is a 54-year-old male with panhypopituitary is him, central hypothyroidism, central adrenal insufficiency, chronic respiratory failure on 3 to 4 L of O2, history of COPD and pneumonia (recently discharged on 03/24), bipolar disorder, seizure disorder versus pseudoseizures, history of status epilepticus requiring intubation at [place] in fall 2023, BPH, migraine, obstructive sleep apnea with his CPAP, paroxysmal atrial fibrillation status post Watchman procedure, chronic narcotic dependence using [place] every 6 hours. He went to his PCP for a posthospitalization appointment today. While at the PCPs office, he had 3 episo raymon of seizure at the clinic. His is at the bedside and history was obtained from her primarily. She stated that he has been compliant to his seizure medications. While in the ER, he was noted to be dry with an initial blood pressure of 80/60. He was given IV fluids and 50 mg of IV hydrocortisone. The ED physician spoke to neurologist who recommended admission, repeat EEG. He was given IV Keppra and IV Ativan for seizures. He is currently seizure-free. Allergies Allergy/AdvReac Type Severity Reaction Status Date / Time clindamycin Allergy Intermediate SWELLING Verified 03/27/25 10:30 Iodinated Contrast Media Allergy Intermediate face/eye Verified 03/27/25 10:30 swelling Quinolones Allergy Intermediate HIVES Verified 03/27/25 10:30 tomato AdvReac Verified 03/27/25 10:30 Home Medications Medication Instructions Recorded Confirmed Type lithium carbonate 300 mg tablet 300 mg PO AMHS 06/04/22 03/27/25 History mirtazapine 30 mg tablet (Remeron) 30 mg PO UD 06/23/22 03/27/25 History blood sugar diagnostic (OneTouch 08/06/22 03/27/25 History Verio test strips) fluticasone propionate 50 1 spray intranasal HS PRN allergy 03/16/23 03/27/25 Rx mcg/actuation nasal symptoms #16 grams spray,suspension (Flonase Allergy Relief) FreeStyle Rosalie 2 [place] (flash #1 ea 05/13/23 03/27/25 Rx glucose scanning reader) blood sugar diagnostic (Sharewaveuch #150 ea 11/22/23 03/27/25 Rx Verio test strips) blood-glucose meter (SharewaveTouch #1 ea 11/22/23 03/27/25 Rx Verio Reflect Meter) insulin syringe-needle U-100 1 mL #300 ea 11/22/23 03/27/25 Rx 30 gauge x 1/2" (BD Insulin Syringe Ultra-Fine) lancets 33 gauge (SharewaveTouch Delica #150 ea 11/22/23 03/27/25 Rx Plus Lancet) albuterol sulfate 90 mcg/actuation 2 inh inhalation Q6H PRN shortness 02/24/24 03/27/25 Rx aerosol inhaler (Ventolin HFA) of breath or wheezing #6.7 grams dutasteride 0.5 mg capsule 0.5 mg PO QAM 04/06/24 03/27/25 History glucagon 3 mg/actuation nasal 3 mg intranasal ONCE PRN Severe 04/06/24 03/27/25 History spray (Baqsimi) Hypoglycemia FreeStyle Rosalie 2 Sensor (flash #6 ea 05/02/24 03/27/25 Rx glucose sensor) aripiprazole 5 mg tablet 5 mg PO DAILY 05/29/24 03/27/25 History insulin glargine 100 unit/mL (3 12 unit subcut HS 07/19/24 03/27/25 History mL) subcutaneous pen (Lantus Solostar U-100 Insulin) ipratropium 0.5 mg-albuterol 3 mg 3 ml inhalation QID PRN wheezing 07/31/24 03/27/25 Rx (2.5 mg base)/3 mL nebulization #90 mL soln nebulizers (Compact Compressor #1 ea 07/31/24 03/27/25 Rx Nebulizer) Botox 200 unit injection See Rx Instructions IM .COMPLEX #1 09/18/24 03/27/25 Rx (onabotulinumtoxinA) ea rosuvastatin 20 mg tablet 20 mg PO QAM #90 tabs 09/19/24 03/27/25 Rx pantoprazole 40 mg tablet,delayed 40 mg PO BID #60 tabs 09/21/24 03/27/25 Rx release trazodone 100 mg tablet 100 mg PO HS 10/03/24 03/27/25 History pen needle, diabetic 32 gauge x #100 ea 10/23/24 03/27/25 Rx 5/32" (BD Vy 2nd Gen Pen Needle) bumetanide 1 mg tablet 1 mg PO QAM #30 tabs 10/26/24 03/27/25 Rx vitamin B complex (Vitamins B 1 cap PO QAM #30 caps 10/26/24 03/27/25 Rx Complex capsule) hydrocodone 7.5 mg-acetaminophen 1 tab PO Q6H 11/19/24 03/27/25 History 325 mg tablet tirzepatide 2.5 mg/0.5 mL 2.5 mg (0.5 mL) subcut Q7D #2 mL 11/22/24 03/27/25 Rx subcutaneous pen injector (Unruly) lorazepam 0.5 mg tablet 0.5 mg PO DAILY PRN Seizure 11/23/24 03/27/25 History Activity levetiracetam 1,000 mg tablet 1,000 mg PO Q12H #60 tabs 11/26/24 03/27/25 Rx aspirin 81 mg tablet,delayed 81 mg PO QAM #90 tabs 11/27/24 03/27/25 Rx release duloxetine 60 mg capsule,delayed 60 mg PO UD 11/27/24 03/27/25 History release ferrous sulfate 325 mg (65 mg 325 mg PO .qod 11/27/24 03/27/25 History iron) tablet desmopressin 0.2 mg tablet 0.4 mg (2 x 0.2 mg) PO BID #120 11/30/24 03/27/25 Rx tabs metoprolol succinate 25 mg 25 mg PO HS #90 tabs 11/30/24 03/27/25 Rx tablet,extended release 24 hr somatropin 5 mg/1.5 mL (3.3 mg/mL) 0.3 mg (0.09 mL) subcut QPM #2 11/30/24 03/27/25 Rx subcutaneous pen injector syringes (Norditropin FlexPro) clopidogrel 75 mg tablet (Plavix) 75 mg PO DAILY 12/03/24 03/27/25 History budesonide 0.5 mg/2 mL suspension 0.5 mg (2 mL) inhalation DAILY #60 12/04/24 03/27/25 Rx for nebulization mL lisinopril 40 mg tablet 40 mg PO DAILY #90 tabs 12/06/24 03/27/25 Rx divalproex 500 mg tablet,delayed 1,000 mg (2 x 500 mg) PO DAILY #60 12/14/24 03/27/25 Rx release tabs lacosamide 150 mg tablet 150 mg PO BID #60 tabs 12/26/24 03/27/25 Rx famotidine 20 mg tablet (Acid 20 mg PO DAILY 6 weeks #42 tabs 01/11/25 03/27/25 Rx Still Cleaner (famotidine)) arformoterol 15 mcg/2 mL solution 2 ml inhalation BID 01/16/25 03/27/25 History for nebulization (Brovana) oxybutynin chloride 5 mg 5 mg PO DAILY 01/16/25 03/27/25 History tablet,extended release 24 hr hydrocortisone 10 mg tablet 10 mg PO UD #135 tabs 01/25/25 03/27/25 Rx Oxygen Home 01/30/25 03/27/25 History metformin 1,000 mg tablet 1,000 mg PO BID #180 tabs 02/26/25 03/27/25 Rx rimegepant 75 mg disintegrating 75 mg PO DAILY PRN Migraine 02/28/25 03/27/25 Rx tablet (Nurtec ODT) Headache #16 tabs doxycycline hyclate 100 mg tablet 100 mg PO BID 03/01/25 03/27/25 History magnesium oxide 400 mg (241.3 mg 400 mg PO DAILY 03/01/25 03/27/25 History magnesium) tablet potassium chloride 10 mEq 10 meq PO DAILY 03/01/25 03/27/25 History tablet,extended release prazosin 2 mg capsule 2 mg PO TID 03/01/25 03/27/25 History testosterone 2 pump topical PM #75 grams 03/18/25 03/27/25 Rx nystatin 100,000 unit/gram topical 1 applic topical BID PRN Other 03/19/25 03/27/25 History cream quetiapine 50 mg tablet,extended 50 mg PO DAILY 03/19/25 03/27/25 History release 24 hr venlafaxine 150 mg 150 mg PO DAILY 03/19/25 03/27/25 History capsule,extended release 24 hr formoterol fumarate 20 mcg/2 mL 20 mcg (2 mL) NEB BIDR #60 vials 03/24/25 03/27/25 Rx solution for nebulization (Perforomist) levothyroxine 150 mcg tablet 150 mcg PO DAILYBB #30 tabs 03/24/25 03/27/25 Rx (Synthroid) prednisone 10 mg tablet 10 mg PO DIRECTED #30 tabs 03/24/25 03/27/25 Rx acetylcysteine 200 mg/mL (20 %) 2 ml inhalation BID PRN Chest 03/26/25 03/27/25 Rx solution congestion #100 mL cholecalciferol (vitamin D3) 50 50 mcg PO QPM #90 caps 03/26/25 03/27/25 Rx mcg (2,000 unit) capsule propranolol 120 mg capsule,24 120 mg PO HS 03/26/25 03/27/25 History hr,extended release sodium chloride 7 % for 1 inh inhalation BID #240 mL 03/26/25 03/27/25 Rx nebulization tiotropium bromide 2.5 2 puff inhalation DAILY #4 grams 03/26/25 03/27/25 Rx mcg/actuation mist for inhalation (Spiriva Respimat) Past Med/Surg History Problem List Elevated lactic acid level (Acute) Chronic adrenal insufficiency (Acute) Leukocytosis (Acute) Chronic narcotic dependence Lactic acidosis Acute asthma exacerbation Compartment syndrome of lower extremity COPD with exacerbation Acute on chronic hypoxic respiratory failure (Acute) Migraine Ambulatory dysfunction (Acute) LPRD (laryngopharyngeal reflux disease) Arthralgia Anti-cyclic citrullinated peptide antibody positive Restrictive lung disease Fall (Acute) Hematoma (Acute) Venous stasis ulcers (Acute) Chronic venous insufficiency (Chronic) Presbyopia of both eyes Epiretinal membrane (ERM) of left eye Ocular hypertension Secondary cataract of left eye with vision obscured Combined form of senile cataract of right eye Abnormal PFTs (pulmonary function tests) Abnormal chest CT COPD (chronic obstructive pulmonary disease) (Acute) Demyelinating disease Hypertension (Acute) Secondary adrenal insufficiency Pituitary hypogonadism Follows with endocrinology- Pituitary hypothyroidism Follows with endocrinology- Non-occlusive coronary artery disease Lumbar stenosis with neurogenic claudication Esophageal dysphagia Anxiety (Chronic) Mitral regurgitation Essential tremor Idiopathic polyneuropathy Arachnoid cyst of posterior cranial fossa Obstructive sleep apnea (Acute) Mixed hyperlipidemia Ulcerative colitis Anemia (Acute) Bipolar disorder (10/11/22) Chronic migraine without aura or status migrainosus Uncontrolled type 2 diabetes mellitus with hyperglycemia Suspect low glycation index meaning his A1c is typically about 2 points lower than what his average glucose would suggest. Current use of proton pump inhibitor Severe obesity (BMI 35.0-35.9 with comorbidity) 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 Growth hormone deficiency Depression BPH with obstruction/lower urinary tract symptoms Medical History Diaphoresis Acute hypoxic respiratory failure Influenza A Influenza A Seizure disorder Presence of Watchman left atrial appendage closure device Status epilepticus (09/13/24) Knee hemarthrosis, right (09/13/24) Acute on chronic anemia (09/13/24) Acute metabolic encephalopathy (09/13/24) Acute hypoxic respiratory failure (09/13/24) Laceration of toe of right foot Closed fracture of right fibula with malunion Type 2 diabetes mellitus Right fibular fracture Acute on chronic respiratory failure with hypoxia and hypercapnia Shortness of breath Acute hypercapnic respiratory failure Acute hypercapnic respiratory failure Chronic respiratory failure with hypoxia Obesity CKD (chronic kidney disease), stage III Peripheral edema Seizure disorder Atrial fibrillation (02/15/24) Chronic low back pain Panhypopituitarism Lumbosacral radiculopathy Toxic encephalopathy Chest pain Acute dyspnea Acute CHF Hypoglycemia Syncope and collapse Reason for loop recorder No recent issues since bed bound from femur fracture in Sep 2022 per patient Internal hemorrhoids Recurrent seizures Pituitary diabetes insipidus Follows with endocrinology- on DDAVP Spondylolysis, lumbar region Right lumbar radiculopathy HTN (hypertension) Bipolar disorder Adrenal insufficiency Pituitary adenoma Diabetes Bleeding (02/16/24) Acute blood loss anemia (02/19/24) Hyperactive gag reflex BRCA gene positive tested positive in Aug 2023 [place] > reason for up coming EGD Family history of BRCA gene mutation PTSD (post-traumatic stress disorder) Epidural lipomatosis Chronic left sacroiliac pain Benzodiazepine overdose none since Nov 2022 Presence of cardiac device Loop recorder > last checked fall 2022 Hx of fracture of foot Sep 2022- right > cast since removed > still gets painful Fracture of fibula, right, closed Cerebral concussion May 2023 during seizure > no further issues Orthostatic hypotension Pseudoseizures Sensorineural hearing loss of both ears Rectal bleeding on occasion History of COVID-19 10/2021 - fatigue; resolved. Mitral valve regurgitation follows with Dr. Phillips Vertigo Panhypopituitarism Lower extremity edema Elevated LFTs Bilateral hand pain Pituitary neoplasm Dx'ed in 2001- s/p surgical resection and XRT Repeat surgery in 2018 secondary to tumor regrowth at [facility] Kidney stones HX Prostate mass benign Bladder mass benign Obstructive sleep apnea of adult cpap > non compliant per pt Surgical History S/P TURP (status post transurethral resection of prostate) History of lumbar fusion [facility] [place] Jul 2022 History of cardiac cath 07/2021 - no stents S/P epidural steroid injection History of lithotripsy Status post right foot surgery replaced 5th metatarsal--hardware in place History of bladder surgery remove mass History of prostate surgery remove mass History of colonoscopy History of esophagogastroduodenoscopy (EGD) History of tooth extraction History of wisdom tooth extraction History of brain surgery x2---2004 @ [facility] [place] [place], 2018 @ [facility]--for brain tumors > caused epilepsy Family History Grandmother (Paternal) Family history of diabetes mellitus Aunt Family history of diabetes mellitus Uncle Family history of diabetes mellitus Father Prostate cancer Heart disease Osteoarthritis Mother Cardiac disorder Grandmother (Maternal) Myocardial infarction Other Asthma Cancer Hypertension No family history of adverse response to anesthesia No family history of bleeding disorder Stroke Denies family history of Ovarian cancer Breast cancer Colorectal cancer Social History Smoking Status: Never smoker Second Hand Exposure: No; Do You Dip or Chew Tobacco: Yes; Hx Alcohol Use: No Hx Substance Use: No Preferred Language: Japanese Communication Ability: Effective Communication Ability Comment: Unable to obtain due to patient condition. Visual Impairment: Limited Hearing Ability: Normal Teaseler Required: No Beliefs That Will Affect Care: None marital status: Single Current Living Situation: Spouse Current Living Situation Comment: and daughter in [place] current occupational status: disabled How many Children do You have: 3 How many Children do You have Comment: able to assist with care if needed Feels Safe at Home: Yes Safety Concerns: Feels Safe At This Time Childhood Exposure to Second-Hand Smoke: Yes (parents smoked) Diet: regular Diet Comment: going to be starting low carb/low calorie diet. caffeine: No (1/2 20 oz bottle of mountain dew. ) during the past year weight has: increased > 10 lbs Physical Activity Frequency: Daily Physical Activity Frequency Comment: walking, 1.5 miles daily. Seatbelt Use: always Do you think of yourself as: straight/heterosexual Gender Identity: Male Assistive Devices: CPAP, Glasses, Oxygen - Continuous and Walker Review of Systems Review of Systems: All systems reviewed & are unremarkable except as noted in Subjective Physical Exam Physical Exam: General appearance: Patient is sleepy. But he is able to answer some simple questions appropriately. He is AO x 3. Pupils: Equally reactive to light and accommodation Neck: No masses, no thyromegaly Respiration: Clear to auscultation bilaterally. Normal effort Cardiovascular: S1-S2/regular rate and rhythm. No murmur, rubs or gallop. No edema. Abdomen: Soft, nontender, nondistended. No hepatosplenomegaly Musculoskeletal: No clubbing, no cyanosis, normal range of motion Skin: No rashes, no nodules Neuro exam: Cranial nerves intact, sensation grossly intact Psychiatric: Patient has good judgment and insight. AOx3. Mood and affect appear normal Lymphatics: No cervical or axillary lymphadenopathy noted Results & Data Results & Data Vital Signs (Past 12 Hours) Vital Signs Temp Pulse Pulse Resp BP BP Pulse Ox 03/27/25 16:28 03/27/25 16:17 36.6 C 92 H 18 121/74 98 03/27/25 15:33 88 20 97/70 L 100 03/27/25 14:14 90 20 86/53 L 97 03/27/25 13:47 92 H 20 83/64 L 97 03/27/25 13:37 94 H 18 97/62 L 98 03/27/25 12:31 92 H 16 102/68 98 03/27/25 12:22 92 H 03/27/25 11:48 101 H 21 87/65 L 97 03/27/25 11:23 110 H 18 97/62 L 98 03/27/25 11:23 98 03/27/25 11:23 36.4 C L 110 H 20 97/62 L 98 O2 Del Method O2 Flow Rate 03/27/25 16:28 Nasal Cannula 4 03/27/25 16:17 Nasal Cannula 4 03/27/25 15:33 Nasal Cannula 4 03/27/25 14:14 Room Air 03/27/25 13:47 Nasal Cannula 03/27/25 13:37 Nasal Cannula 4 03/27/25 12:31 Nasal Cannula 4 03/27/25 12:22 03/27/25 11:48 Nasal Cannula 4 03/27/25 11:23 Nasal Cannula 4 03/27/25 11:23 Nasal Cannula 4 03/27/25 11:23 Nasal Cannula 4 Laboratory Results Abnormal lab results 03/27/25 03/27/25 03/27/25 Range/Units 11:21 11:31 11:32 WBC 18.60 H (4.8-10.8) K/ul RDW Std Deviation 48.4 H (36.4-46.3) fL RDW Coeff of Yanira 15.0 H (11.5-14.5) % MPV 8.9 L (9.4-12.4) fL Neut # (Auto) 12.92 H (1.40-6.50) K/uL [place] # (Auto) 1.43 H (0.11-0.59) K/uL Immature Gran # (Auto) 0.90 H (0.01-0.20) K/uL POC Chloride 97 L (101-112) mmol/L Chloride 97 L (98-107) mmol/L POC Total CO2 19 L (24-31) mmol/L Anion Gap 21 H (3-11) POC Anion Gap 26.0 H (16-25) mmol/L POC BUN 24 H (7-18) mg/dl BUN 26 H (6-23) mg/dl BUN/Creatinine Ratio 21.5 H (10-20) Glucose 108 H (70-99(Fasting)) mg/dl POC Glucose 128 H (70-99) mg/dl POC Glucose (other) 107 H (70-99) mg/dl Phosphorus 5.7 H (2.5-4.9) mg/dl AST 10 L (13-39) U/L Globulin 2.2 L (2.5-4.0) gm/dl Diagnostic Findings Chest X-Ray 03/27/25 11:42 XR chest 1V portable CLINICAL HISTORY: seizure COMPARISON STUDY: 03/19/2025 FINDINGS: Stable cardiac recorder. Stable mild cardiomegaly without pulmonary vascular congestion. Inspiration is shallow. There is interval mild stranding at the left lung base. No other consolidation or pleural effusion. No pneumothorax. IMPRESSION: Likely atelectasis left lung base. No other acute findings seen. ACT 112: Negative or not required by law. Electronically signed by: Keon Crump M.D. 03/27/2025 12:[address] 03/27/25 11:58 CT SCAN OF THE BRAIN WITHOUT IV CONTRAST CLINICAL HISTORY: Seizures. COMPARISON STUDY: MRI of the brain January 20, [address] January 18, 2025. TECHNIQUE: Unenhanced axial CT scan of the brain was performed from the vertex to the skull base. A dose lowering technique was utilized adhering to the principles of ALARA. CT DOSE: 703.85 mGy.cm FINDINGS: Brain parenchyma: No acute intracranial hemorrhage is present. A 5.7 x 4 cm retrocerebellar CSF signal intensity focus is unchanged and may represent a patrick cisterna magna or arachnoid cyst Ventricles, sulci, cisterns: There is no hydrocephalus. The basal cisterns are patent. Calvarium: No calvarial fractures. Sinuses and mastoids: The visualized paranasal sinuses are clear. The mastoid air cells are well pneumatized. Orbits: The bony orbits are grossly intact. IMPRESSION: No acute intracranial findings. No change in appearance of the brain. ACT 112: Negative or not required by law. Electronically signed by: Aditya Foley M.D. 03/27/2025 12:59 PM Code Status & VTE Plan VTE Prophylaxis Plan VTE Prophylaxis will be ordered: Yes PG Care Time/CCT Total # of Minutes Spent Total Time Spent with Patient: Total time spent is greater than 50% in coordination of care (as documented) at patient's floor/unit and/or counseling patient: Coding Level of Care Code 54912 INT INP/OBS CARE 2/55MIN Diagnoses Seizure disorder G40.909 Chronic adrenal insufficiency E27.40 Chronic narcotic dependence F11.20 Bipolar disorder F31.9 Type 2 diabetes mellitus E11.9
[2025-03-27] MEDS ORDERED: DULoxetine HCL 30 MG CAP PO SCH (21:00)
[2025-03-27] MEDS: INSULIN ASPART PER UNIT CHARGE SC SCH (21:13)
[2025-03-27] MEDS: METOPROLOL SUCC 25MG EXT REL TAB PO SCH (21:19)
[2025-03-27] MEDS: DESMOPRESSIN ACETATE 0.1 MG TAB PO SCH (21:19)
[2025-03-27] MEDS: LACOSAMIDE 50 MG TABLET PO SCH (21:19)
[2025-03-27] MEDS: traZODone HCL 100 MG TAB PO SCH (21:19)
[2025-03-27] MEDS: DULoxetine HCL 60 MG CAP PO SCH (21:19)
[2025-03-27] MEDS: LITHIUM CARBONATE 300 MG TAB PO SCH (21:19)
[2025-03-27] MEDS: LANTUS PER UNIT CHARGE SC ONE (22:01)
[2025-03-27] MEDS ORDERED: LIDOCAINE 5% 1 PATCH TD PRN (23:19)
[2025-03-27] MEDS ORDERED: DICLOFENAC SOD 1% GEL 100 GM TUBE EXT PRN (23:19)
[2025-03-27] MEDS: ACETAMINOPHEN 500 MG TAB PO PRN (23:36)
[2025-03-28] MEDS: LORazepam 2 MG/1 ML VIAL IV PRN ×2 (04:08→14:11)
--- NOTE | 2025-03-28 04:14 | Communication Note ---
Date of Service: March 28, 2025 Code purple called shortly before 0400 - per RN, patient had a tonic-clonic seizure that broke after administration of IV Ativan 4mg. Upon responding to code, patient was postictal, slightly dazed/confused and lethargic. VSS, blood sugar 104. Patient then had another brief tonic-clonic seizure that spontaneously resolved within a minute, before any meds could be administered. Patient upgraded to PCU. Shortly after transfer, notified by RN that patient had another brief seizure, <1 minute, that broke with another dose of IV Ativan 4mg. AM doses of Keppra and Vimpat given early by IV. PRN IV Ativan 4mg x1 available in case patient has additional breakthrough seizure.
[2025-03-28] MEDS: LORazepam 2 MG/1 ML VIAL IV STA (04:46)
[2025-03-28] MEDS: levETIRAcetam 500 MG/5 ML VIAL IV STA (04:50)
[2025-03-28] MEDS: LACOSAMIDE 150 MG in SODIUM CHLORIDE 0.9% 50 ML IV STA (04:57)
[2025-03-28 07:27] LABS: BUN Creatinine Ratio 35.6 (10-20); Calcium 8.6 mg/dl (8.6-10.3); Creatinine Clr Calc Pharmacy 123.9 ml/min; Potassium 3.8 mmol/L (3.5-5.1)
[2025-03-28] MEDS: LEVOTHYROXINE SODIUM 150 MCG TABLET PO SCH (07:28)
[2025-03-28] MEDS: BUDESONIDE 0.5 MG/2 ML VIAL (PULMICORT) INH SCH (07:35)
[2025-03-28 08:03] LABS: Hematocrit (blood only) 38.3 % (42.0-52.0); Hemoglobin 12.7 g/dl (14.0-18.0); Mean Corpuscular Hemoglobin 29.4 pg (25.0-34.0); Mean Corpuscular Hgb Conc 33.2 g/dL (32.0-36.0); Mean Corpuscular Volume 88.7 fL (80.0-100.0); Mean Platelet Volume 8.9 fL (9.4-12.4); Platelet Count 173 K/uL (130-400); RDW Coefficient of Variation 14.9 % (11.5-14.5); RDW Standard Deviation 48.8 fL (36.4-46.3); Red Blood Count 4.32 M/uL (4.70-6.10); White Blood Count 15.02 K/ul (4.8-10.8)
--- NOTE | 2025-03-28 08:20 | Electroencephalogram ---
EEG Procedure Note Date of Service March 28, 2025 Start / End Times Start Time: 610 End Time: 630 Referring Physician korina coffey History LOC Home Medication List Medication Instructions Recorded Confirmed Type lithium carbonate 300 mg tablet 300 mg PO AMHS 06/04/22 03/27/25 History mirtazapine 30 mg tablet (Remeron) 30 mg PO UD 06/23/22 03/27/25 History blood sugar diagnostic (OneTouch 08/06/22 03/27/25 History Verio test strips) fluticasone propionate 50 1 spray intranasal HS PRN allergy 03/16/23 03/27/25 Rx mcg/actuation nasal symptoms #16 grams spray,suspension (Flonase Allergy Relief) FreeStyle Rosalie 2 [place] (flash #1 ea 05/13/23 03/27/25 Rx glucose scanning reader) blood sugar diagnostic (OneTouch #150 ea 11/22/23 03/27/25 Rx Verio test strips) blood-glucose meter (OneTouch #1 ea 11/22/23 03/27/25 Rx Verio Reflect Meter) insulin syringe-needle U-100 1 mL #300 ea 11/22/23 03/27/25 Rx 30 gauge x 1/2" (BD Insulin Syringe Ultra-Fine) lancets 33 gauge (OneTouch Delica #150 ea 11/22/23 03/27/25 Rx Plus Lancet) albuterol sulfate 90 mcg/actuation 2 inh inhalation Q6H PRN shortness 02/24/24 03/27/25 Rx aerosol inhaler (Ventolin HFA) of breath or wheezing #6.7 grams dutasteride 0.5 mg capsule 0.5 mg PO QAM 04/06/24 03/27/25 History glucagon 3 mg/actuation nasal 3 mg intranasal ONCE PRN Severe 04/06/24 03/27/25 History spray (Baqsimi) Hypoglycemia FreeStyle Rosalie 2 Sensor (flash #6 ea 05/02/24 03/27/25 Rx glucose sensor) aripiprazole 5 mg tablet 5 mg PO DAILY 05/29/24 03/27/25 History insulin glargine 100 unit/mL (3 12 unit subcut HS 07/19/24 03/27/25 History mL) subcutaneous pen (Lantus Solostar U-100 Insulin) ipratropium 0.5 mg-albuterol 3 mg 3 ml inhalation QID PRN wheezing 07/31/24 03/27/25 Rx (2.5 mg base)/3 mL nebulization #90 mL soln nebulizers (Compact Compressor #1 ea 07/31/24 03/27/25 Rx Nebulizer) Botox 200 unit injection See Rx Instructions IM .COMPLEX #1 09/18/24 03/27/25 Rx (onabotulinumtoxinA) ea rosuvastatin 20 mg tablet 20 mg PO QAM #90 tabs 09/19/24 03/27/25 Rx pantoprazole 40 mg tablet,delayed 40 mg PO BID #60 tabs 09/21/24 03/27/25 Rx release trazodone 100 mg tablet 100 mg PO HS 10/03/24 03/27/25 History pen needle, diabetic 32 gauge x #100 ea 10/23/24 03/27/25 Rx 5/32" (BD Vy 2nd Gen Pen Needle) bumetanide 1 mg tablet 1 mg PO QAM #30 tabs 10/26/24 03/27/25 Rx vitamin B complex (Vitamins B 1 cap PO QAM #30 caps 10/26/24 03/27/25 Rx Complex capsule) hydrocodone 7.5 mg-acetaminophen 1 tab PO Q6H 11/19/24 03/27/25 History 325 mg tablet tirzepatide 2.5 mg/0.5 mL 2.5 mg (0.5 mL) subcut Q7D #2 mL 11/22/24 03/27/25 Rx subcutaneous pen injector (Unruly) lorazepam 0.5 mg tablet 0.5 mg PO DAILY PRN Seizure 11/23/24 03/27/25 History Activity levetiracetam 1,000 mg tablet 1,000 mg PO Q12H #60 tabs 11/26/24 03/27/25 Rx aspirin 81 mg tablet,delayed 81 mg PO QAM #90 tabs 11/27/24 03/27/25 Rx release duloxetine 60 mg capsule,delayed 60 mg PO UD 11/27/24 03/27/25 History release ferrous sulfate 325 mg (65 mg 325 mg PO .qod 11/27/24 03/27/25 History iron) tablet desmopressin 0.2 mg tablet 0.4 mg (2 x 0.2 mg) PO BID #120 11/30/24 03/27/25 Rx tabs metoprolol succinate 25 mg 25 mg PO HS #90 tabs 11/30/24 03/27/25 Rx tablet,extended release 24 hr somatropin 5 mg/1.5 mL (3.3 mg/mL) 0.3 mg (0.09 mL) subcut QPM #2 11/30/24 03/27/25 Rx subcutaneous pen injector syringes (Norditropin FlexPro) clopidogrel 75 mg tablet (Plavix) 75 mg PO DAILY 12/03/24 03/27/25 History budesonide 0.5 mg/2 mL suspension 0.5 mg (2 mL) inhalation DAILY #60 12/04/24 03/27/25 Rx for nebulization mL lisinopril 40 mg tablet 40 mg PO DAILY #90 tabs 12/06/24 03/27/25 Rx divalproex 500 mg tablet,delayed 1,000 mg (2 x 500 mg) PO DAILY #60 12/14/24 03/27/25 Rx release tabs lacosamide 150 mg tablet 150 mg PO BID #60 tabs 12/26/24 03/27/25 Rx famotidine 20 mg tablet (Acid 20 mg PO DAILY 6 weeks #42 tabs 01/11/25 03/27/25 Rx Shank Paperer (famotidine)) arformoterol 15 mcg/2 mL solution 2 ml inhalation BID 01/16/25 03/27/25 History for nebulization (Brovana) oxybutynin chloride 5 mg 5 mg PO DAILY 01/16/25 03/27/25 History tablet,extended release 24 hr hydrocortisone 10 mg tablet 10 mg PO UD #135 tabs 01/25/25 03/27/25 Rx Oxygen Home 01/30/25 03/27/25 History metformin 1,000 mg tablet 1,000 mg PO BID #180 tabs 02/26/25 03/27/25 Rx rimegepant 75 mg disintegrating 75 mg PO DAILY PRN Migraine 02/28/25 03/27/25 Rx tablet (Nurtec ODT) Headache #16 tabs doxycycline hyclate 100 mg tablet 100 mg PO BID 03/01/25 03/27/25 History magnesium oxide 400 mg (241.3 mg 400 mg PO DAILY 03/01/25 03/27/25 History magnesium) tablet potassium chloride 10 mEq 10 meq PO DAILY 03/01/25 03/27/25 History tablet,extended release prazosin 2 mg capsule 2 mg PO TID 03/01/25 03/27/25 History testosterone 2 pump topical PM #75 grams 03/18/25 03/27/25 Rx nystatin 100,000 unit/gram topical 1 applic topical BID PRN Other 03/19/25 03/27/25 History cream quetiapine 50 mg tablet,extended 50 mg PO DAILY 03/19/25 03/27/25 History release 24 hr venlafaxine 150 mg 150 mg PO DAILY 03/19/25 03/27/25 History capsule,extended release 24 hr formoterol fumarate 20 mcg/2 mL 20 mcg (2 mL) NEB BIDR #60 vials 03/24/25 03/27/25 Rx solution for nebulization (Perforomist) levothyroxine 150 mcg tablet 150 mcg PO DAILYBB #30 tabs 03/24/25 03/27/25 Rx (Synthroid) prednisone 10 mg tablet 10 mg PO DIRECTED #30 tabs 03/24/25 03/27/25 Rx acetylcysteine 200 mg/mL (20 %) 2 ml inhalation BID PRN Chest 03/26/25 03/27/25 Rx solution congestion #100 mL cholecalciferol (vitamin D3) 50 50 mcg PO QPM #90 caps 03/26/25 03/27/25 Rx mcg (2,000 unit) capsule propranolol 120 mg capsule,24 120 mg PO HS 03/26/25 03/27/25 History hr,extended release sodium chloride 7 % for 1 inh inhalation BID #240 mL 03/26/25 03/27/25 Rx nebulization tiotropium bromide 2.5 2 puff inhalation DAILY #4 grams 03/26/25 03/27/25 Rx mcg/actuation mist for inhalation (Spiriva Respimat) Inpatient Medication List Acetaminophen (Acetaminophen 500 Mg Tab) 1,000 mg PO Q8H PRN PRN Reason: Pain or Fever Stop: 04/26/25 23:19 Last Admin: 03/27/25 23:36 Dose: 1,000 mg Documented By: TABBY Budesonide (Budesonide 0.5 Mg/2 Ml Vial (Pulmicort)) 0.5 mg INH DAILY OBDULIO Stop: 04/27/25 08:59 Last Admin: 03/28/25 07:35 Dose: 0.5 mg Documented By: KMS Desmopressin Acetate (Desmopressin Acetate 0.1 Mg Tab) 0.4 mg PO BID OBDULIO Stop: 04/26/25 20:59 Last Admin: 03/27/25 21:19 Dose: 0.4 mg Documented By: TABBY Duloxetine HCl (Duloxetine Hcl 60 Mg Cap) 60 mg PO BID OBDULIO Stop: 04/26/25 20:59 Last Admin: 03/27/25 21:19 Dose: 60 mg Documented By: TABBY Insulin Aspart (Insulin Aspart Per Unit Charge) 0 units SC ACHS OBDULIO Stop: 04/26/25 20:59 Last Admin: 03/27/25 21:13 Dose: Not Given Documented By: TABBY Levothyroxine Sodium (Levothyroxine Sodium 150 Mcg Tablet) 150 mcg PO DAILYBB OBDULIO Stop: 04/27/25 06:29 Last Admin: 03/28/25 07:28 Dose: Not Given Documented By: AAL [place] Carbonate ([place] Carbonate 300 Mg Tab) 300 mg PO BID OBDULIO Stop: 04/26/25 20:59 Last Admin: 03/27/25 21:19 Dose: 300 mg Documented By: TABBY Metoprolol Succinate (Metoprolol Succ 25mg Ext Rel Tab) 25 mg PO HS [facility] Stop: 04/26/25 20:59 Last Admin: 03/27/25 21:19 Dose: 25 mg Documented By: TABBY Trazodone HCl (Trazodone Hcl 100 Mg Tab) 100 mg PO HS OBDULIO Stop: 04/26/25 20:59 Last Admin: 03/27/25 21:19 Dose: 100 mg Documented By: TABBY Discontinued Medications Hydrocortisone Sodium Succinate (Hydrocortisone Sod Succinate 100 Mg/2 Ml Vial) 50 mg IV NOW STA Stop: 03/27/25 13:08 Last Admin: 03/27/25 13:35 Dose: 50 mg Documented By: ES Sodium Chloride (Nss) 500 mls @ 999 mls/hr IV .Q31M ONE Stop: 03/27/25 12:02 Last Infusion: 03/27/25 12:30 Dose: Infused Documented By: Admin: 03/27/25 11:35 Dose: 999 mls/hr Documented By: ES Sodium Chloride (Nss) 500 mls @ 999 mls/hr IV .Q31M ONE Stop: 03/27/25 12:02 Last Infusion: 03/27/25 12:30 Dose: Infused Documented By: Admin: 03/27/25 11:35 Dose: 999 mls/hr Documented By: DEBBIE Acetaminophen (Ofirmev) 1,000 mg in 100 mls @ 400 mls/hr IV NOW STA Stop: 03/27/25 12:12 Last Infusion: 03/27/25 12:41 Dose: Infused Documented By: Admin: 03/27/25 12:25 Dose: 400 mls/hr Documented By: MAY Lacosamide 150 mg/ Sodium (Chloride) 65 mls @ 130 mls/hr IV ONE STA Stop: 03/28/25 05:05 Last Infusion: 03/28/25 05:36 Dose: Infused Documented By: Admin: 03/28/25 04:57 Dose: 130 mls/hr Documented By: LEONARDO Insulin Glargine (Lantus Per Unit Charge) 5 units SC ONE ONE Stop: 03/27/25 21:46 Last Admin: 03/27/25 22:01 Dose: 5 units Documented By: TABBY Co-signed By: RYLEY Lacosamide (Lacosamide 50 Mg Tablet) 150 mg PO BID OBDULIO Stop: 04/26/25 20:59 Last Admin: 03/27/25 21:19 Dose: 150 mg Documented By: TABBY Levetiracetam (Levetiracetam 500 Mg/5 Ml Vial) 4,500 mg IV NOW STA Stop: 03/27/25 11:33 Last Admin: 03/27/25 11:48 Dose: 4,500 mg Documented By: DEBBIE Levetiracetam (Levetiracetam 500 Mg/5 Ml Vial) 1,000 mg IV NOW STA Stop: 03/28/25 04:24 Last Admin: 03/28/25 04:50 Dose: 1,000 mg Documented By: LEONARDO Lorazepam (Lorazepam 2 Mg/1 Ml Vial) 1 mg IV NOW STA Stop: 03/27/25 12:51 Last Admin: 03/27/25 12:55 Dose: 1 mg Documented By: DEBBIE Lorazepam (Lorazepam 2 Mg/1 Ml Vial) Confirm Administered Dose 2 mg .ROUTE .STK- MED ONE Stop: 03/27/25 12:52 Last Admin: 03/27/25 12:55 Dose: Not Given Documented By: DEBBIE Lorazepam (Lorazepam 2 Mg/1 Ml Vial) 4 mg IV ONCE PRN PRN Reason: seizure Stop: 04/26/25 19:20 Last Admin: 03/28/25 04:19 Dose: 4 mg Documented By: Admin: 03/28/25 04:08 Dose: 4 mg Documented By: TABBY Lorazepam (Lorazepam 2 Mg/1 Ml Vial) 4 mg IV NOW STA Stop: 03/28/25 04:02 Last Admin: 03/28/25 04:46 Dose: Not Given Documented By: FLACA Ondansetron HCl (Ondansetron Inj 2 Mg/Ml 2 Ml Vial) 4 mg IV NOW STA Stop: 03/27/25 11:59 Last Admin: 03/27/25 12:26 Dose: 4 mg Documented By: MAY Description This is a 21 electrode EEG with a single channel dedicated to limited EKG. The electrodes were placed in accordance with the International 10-20 system. Interpretation This is a 21 electrode EEG with a single channel dedicated to limited EKG. The electrodes were placed in accordance with the International 10-20 system. There is a posterior dominant rhythm of 9 Hz which is symmetrically distributed and attenuates with eye opening. There is a normal anterior to posterior organization. Photic stimulation: unremarkable Hyperventilation performed: ___ unremarkable; _x_ not performed. There is no focal slowing. No epileptiform abnormalities. Sleep stage: _x_ not achieved, ___drowsy state, ___ Stage II, ___ REM stage achieved. Interpretation Normal-appearing awake/sleep EEG. A normal EEG does not completely exclude a diagnosis of epilepsy. [facility] Procedure Codes Indication for Procedure (1) Transient alteration of awareness: Neurology Neurology: [id number] EEG include record awake & drowsy
[2025-03-28 08:30] LABS: iSTAT Arterial Blood Gas HCO3 34 meg/L (19-24); iSTAT Arterial Blood Gas pCO2 48 mmHg (35-46); iSTAT Arterial Blood Gas pH 7.45 (7.35-7.45); iSTAT Arterial Blood Gas pO2 48 mmHg (80-95); iSTAT Carbon Dioxide 35 mmol/L (24-31); iSTAT Hematocrit 35 % (42-52); iSTAT Hemoglobin 11.9 g/dl (14.0-18.0); iSTAT Potassium 3.6 mmol/L (3.3-5.0); iSTAT Sodium 137 mmol/L (135-144)
[2025-03-28] MEDS: ASPIRIN 81 MG ECTAB PO SCH (08:53)
[2025-03-28] MEDS: FAMOTIDINE 20 MG TAB PO SCH (08:53)
[2025-03-28] MEDS: QUEtiapine FUMARATE 50 MG TABCR PO SCH (08:53)
[2025-03-28] MEDS: ARIPiprazole 5 MG TAB PO SCH (08:53)
[2025-03-28] MEDS: CLOPIDOGREL BISULFATE 75 MG TAB PO SCH (08:53)
[2025-03-28] MEDS: HYDROCORTISONE 10 MG TAB PO SCH ×2 (08:53→14:55)
[2025-03-28] MEDS: MIRTAZAPINE TAB 15 MG TAB PO SCH (08:53)
[2025-03-28] MEDS: DIVALPROEX DELAY RELEASE 500 MG TAB PO SCH (08:53)
[2025-03-28] MEDS: FINASTERIDE 5 MG TAB PO SCH (08:53)
[2025-03-28] MEDS: ROSUVASTATIN CALCIUM 20 MG TAB PO SCH (08:54)
[2025-03-28] MEDS: VENLAFAXINE HCL XR 150 MG CAPXR PO SCH (08:54)
[2025-03-28] MEDS ORDERED: levETIRAcetam 500 MG TAB PO SCH (09:00)
[2025-03-28] MEDS ORDERED: DULoxetine HCL 60 MG CAP PO SCH (09:00)
--- NOTE | 2025-03-28 09:12 | Neurology Consultation ---
Date of Consultation March 28, 2025 Assessment & Plan (1) Transient alteration of awareness: History of Present Illness Attending Physician: Swati Rodriguez MD History of Present Illness S: pt this morning sleepy but alert and follows command well. EEG normal. pt hypotensive. chart reviewed. 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 He went to his PCP for a posthospitalization appointment today. While at the PCPs office, he had 3 episodes of seizure at the clinic. His is at the bedside and history was obtained from her primarily. She stated that he has been compliant to his seizure medications. While in the ER, he was noted to be dry with an initial blood pressure of 80/60. He was given IV fluids and 50 mg of IV hydrocortisone. The ED physician spoke to neurologist who recommended admission, repeat EEG. He was given IV Keppra and IV Ativan for seizures. He is currently seizure-free. Allergies Allergy/AdvReac Type Severity Reaction Status Date / Time clindamycin Allergy Intermediate SWELLING Verified 03/27/25 10:30 Iodinated Contrast Media Allergy Intermediate face/eye Verified 03/27/25 10:30 swelling Quinolones Allergy Intermediate HIVES Verified 03/27/25 10:30 tomato AdvReac Verified 03/27/25 10:30 Home Medications Medication Instructions Recorded Confirmed Type lithium carbonate 300 mg tablet 300 mg PO AMHS 06/04/22 03/27/25 History mirtazapine 30 mg tablet (Remeron) 30 mg PO UD 06/23/22 03/27/25 History blood sugar diagnostic (OneTouch 08/06/22 03/27/25 History Verio test strips) fluticasone propionate 50 1 spray intranasal HS PRN allergy 03/16/23 03/27/25 Rx mcg/actuation nasal symptoms #16 grams spray,suspension (Flonase Allergy Relief) Data Symmetry [address]al[address] (flash #1 ea 06/23/23 05/07/25 Rx glucose scanning reader) blood sugar diagnostic (Rococo SoftwareTouch #150 ea 11/22/23 03/27/25 Rx Verio test strips) blood-glucose meter (OneTouch #1 ea 11/22/23 03/27/25 Rx Verio Reflect Meter) insulin syringe-needle U-100 1 mL #300 ea 11/22/23 03/27/25 Rx 30 gauge x 1/2" (BD Insulin Syringe Ultra-Fine) lancets 33 gauge (Rococo SoftwareTouch Delica #150 ea 11/22/23 03/27/25 Rx Plus Lancet) albuterol sulfate 90 mcg/actuation 2 inh inhalation Q6H PRN shortness 02/24/24 03/27/25 Rx aerosol inhaler (Ventolin HFA) of breath or wheezing #6.7 grams dutasteride 0.5 mg capsule 0.5 mg PO QAM 04/06/24 03/27/25 History glucagon 3 mg/actuation nasal 3 mg intranasal ONCE PRN Severe 04/06/24 03/27/25 History spray (Baqsimi) Hypoglycemia FreeStyle Rosalie 2 Sensor (flash #6 ea 05/02/24 03/27/25 Rx glucose sensor) aripiprazole 5 mg tablet 5 mg PO DAILY 05/29/24 03/27/25 History insulin glargine 100 unit/mL (3 12 unit subcut HS 07/19/24 03/27/25 History mL) subcutaneous pen (Lantus Solostar U-100 Insulin) ipratropium 0.5 mg-albuterol 3 mg 3 ml inhalation QID PRN wheezing 07/31/24 03/27/25 Rx (2.5 mg base)/3 mL nebulization #90 mL soln nebulizers (Compact Compressor #1 ea 07/31/24 03/27/25 Rx Nebulizer) Botox 200 unit injection See Rx Instructions IM .COMPLEX #1 09/18/24 03/27/25 Rx (onabotulinumtoxinA) ea rosuvastatin 20 mg tablet 20 mg PO QAM #90 tabs 09/19/24 03/27/25 Rx pantoprazole 40 mg tablet,delayed 40 mg PO BID #60 tabs 09/21/24 03/27/25 Rx release trazodone 100 mg tablet 100 mg PO HS 10/03/24 03/27/25 History pen needle, diabetic 32 gauge x #100 ea 10/23/24 03/27/25 Rx 5/32" (BD Vy 2nd Gen Pen Needle) bumetanide 1 mg tablet 1 mg PO QAM #30 tabs 10/26/24 03/27/25 Rx vitamin B complex (Vitamins B 1 cap PO QAM #30 caps 10/26/24 03/27/25 Rx Complex capsule) hydrocodone 7.5 mg-acetaminophen 1 tab PO Q6H 11/19/24 03/27/25 History 325 mg tablet tirzepatide 2.5 mg/0.5 mL 2.5 mg (0.5 mL) subcut Q7D #2 mL 11/22/24 03/27/25 Rx subcutaneous pen injector (Unruly) lorazepam 0.5 mg tablet 0.5 mg PO DAILY PRN Seizure 11/23/24 03/27/25 History Activity levetiracetam 1,000 mg tablet 1,000 mg PO Q12H #60 tabs 11/26/24 03/27/25 Rx aspirin 81 mg tablet,delayed 81 mg PO QAM #90 tabs 11/27/24 03/27/25 Rx release duloxetine 60 mg capsule,delayed 60 mg PO UD 11/27/24 03/27/25 History release ferrous sulfate 325 mg (65 mg 325 mg PO .qod 11/27/24 03/27/25 History iron) tablet desmopressin 0.2 mg tablet 0.4 mg (2 x 0.2 mg) PO BID #120 11/30/24 03/27/25 Rx tabs metoprolol succinate 25 mg 25 mg PO HS #90 tabs 11/30/24 03/27/25 Rx tablet,extended release 24 hr somatropin 5 mg/1.5 mL (3.3 mg/mL) 0.3 mg (0.09 mL) subcut QPM #2 11/30/24 03/27/25 Rx subcutaneous pen injector syringes (Norditropin FlexPro) clopidogrel 75 mg tablet (Plavix) 75 mg PO DAILY 12/03/24 03/27/25 History budesonide 0.5 mg/2 mL suspension 0.5 mg (2 mL) inhalation DAILY #60 12/04/24 03/27/25 Rx for nebulization mL lisinopril 40 mg tablet 40 mg PO DAILY #90 tabs 12/06/24 03/27/25 Rx divalproex 500 mg tablet,delayed 1,000 mg (2 x 500 mg) PO DAILY #60 12/14/24 03/27/25 Rx release tabs lacosamide 150 mg tablet 150 mg PO BID #60 tabs 12/26/24 03/27/25 Rx famotidine 20 mg tablet (Acid 20 mg PO DAILY 6 weeks #42 tabs 01/11/25 03/27/25 Rx Roll Builder (famotidine)) arformoterol 15 mcg/2 mL solution 2 ml inhalation BID 01/16/25 03/27/25 History for nebulization (Brovana) oxybutynin chloride 5 mg 5 mg PO DAILY 01/16/25 03/27/25 History tablet,extended release 24 hr hydrocortisone 10 mg tablet 10 mg PO UD #135 tabs 01/25/25 03/27/25 Rx Oxygen Home 01/30/25 03/27/25 History metformin 1,000 mg tablet 1,000 mg PO BID #180 tabs 02/26/25 03/27/25 Rx rimegepant 75 mg disintegrating 75 mg PO DAILY PRN Migraine 02/28/25 03/27/25 Rx tablet (Nurtec ODT) Headache #16 tabs doxycycline hyclate 100 mg tablet 100 mg PO BID 03/01/25 03/27/25 History magnesium oxide 400 mg (241.3 mg 400 mg PO DAILY 03/01/25 03/27/25 History magnesium) tablet potassium chloride 10 mEq 10 meq PO DAILY 03/01/25 03/27/25 History tablet,extended release prazosin 2 mg capsule 2 mg PO TID 03/01/25 03/27/25 History testosterone 2 pump topical PM #75 grams 03/18/25 03/27/25 Rx nystatin 100,000 unit/gram topical 1 applic topical BID PRN Other 03/19/25 03/27/25 History cream quetiapine 50 mg tablet,extended 50 mg PO DAILY 03/19/25 03/27/25 History release 24 hr venlafaxine 150 mg 150 mg PO DAILY 03/19/25 03/27/25 History capsule,extended release 24 hr formoterol fumarate 20 mcg/2 mL 20 mcg (2 mL) NEB BIDR #60 vials 03/24/25 03/27/25 Rx solution for nebulization (Perforomist) levothyroxine 150 mcg tablet 150 mcg PO DAILYBB #30 tabs 03/24/25 03/27/25 Rx (Synthroid) prednisone 10 mg tablet 10 mg PO DIRECTED #30 tabs 03/24/25 03/27/25 Rx acetylcysteine 200 mg/mL (20 %) 2 ml inhalation BID PRN Chest 03/26/25 03/27/25 Rx solution congestion #100 mL cholecalciferol (vitamin D3) 50 50 mcg PO QPM #90 caps 03/26/25 03/27/25 Rx mcg (2,000 unit) capsule propranolol 120 mg capsule,24 120 mg PO HS 03/26/25 03/27/25 History hr,extended release sodium chloride 7 % for 1 inh inhalation BID #240 mL 03/26/25 03/27/25 Rx nebulization tiotropium bromide 2.5 2 puff inhalation DAILY #4 grams 03/26/25 03/27/25 Rx mcg/actuation mist for inhalation (Spiriva Respimat) Patient History Medical History Diaphoresis Acute hypoxic respiratory failure Influenza A Influenza A Seizure disorder Presence of Watchman left atrial appendage closure device Status epilepticus (09/13/24) Knee hemarthrosis, right (09/13/24) Acute on chronic anemia (09/13/24) Acute metabolic encephalopathy (09/13/24) Acute hypoxic respiratory failure (09/13/24) Laceration of toe of right foot Closed fracture of right fibula with malunion Type 2 diabetes mellitus Right fibular fracture Acute on chronic respiratory failure with hypoxia and hypercapnia Shortness of breath Acute hypercapnic respiratory failure Acute hypercapnic respiratory failure Chronic respiratory failure with hypoxia Obesity CKD (chronic kidney disease), stage III Peripheral edema Seizure disorder Atrial fibrillation (02/15/24) Chronic low back pain Panhypopituitarism Lumbosacral radiculopathy Toxic encephalopathy Chest pain Acute dyspnea Acute CHF Hypoglycemia Syncope and collapse Reason for loop recorder No recent issues since bed bound from femur fracture in Sep 2022 per patient Internal hemorrhoids Recurrent seizures Pituitary diabetes insipidus Follows with endocrinology- on DDAVP Spondylolysis, lumbar region Right lumbar radiculopathy HTN (hypertension) Bipolar disorder Adrenal insufficiency Pituitary adenoma Diabetes Bleeding (02/16/24) Acute blood loss anemia (02/19/24) Hyperactive gag reflex BRCA gene positive tested positive in Aug 2023 [place] > reason for up coming EGD Family history of BRCA gene mutation PTSD (post-traumatic stress disorder) Epidural lipomatosis Chronic left sacroiliac pain Benzodiazepine overdose none since Nov 2022 Presence of cardiac device Loop recorder > last checked fall 2022 Hx of fracture of foot Sep 2022- right > cast since removed > still gets painful Fracture of fibula, right, closed Cerebral concussion May 2023 during seizure > no further issues Orthostatic hypotension Pseudoseizures Sensorineural hearing loss of both ears Rectal bleeding on occasion History of COVID-19 10/2021 - fatigue; resolved. Mitral valve regurgitation follows with Dr. Phillips Verpepe Panhypopituitarism Lower extremity edema Elevated LFTs Bilateral hand pain Pituitary neoplasm Dx'ed in 2001- s/p surgical resection and XRT Repeat surgery in 2017 secondary to tumor regrowth at [facility] Kidney stones HX Prostate mass benign Bladder mass benign Obstructive sleep apnea of adult cpap > non compliant per pt Surgical History S/P TURP (status post transurethral resection of prostate) [place] [facility] [place] History of cardiac cath 07/2021 - no stents S/P epidural steroid injection History of lithotripsy Status post right foot surgery replaced 5th metatarsal--hardware in place History of bladder surgery remove mass History of prostate surgery remove mass History of colonoscopy History of esophagogastroduodenoscopy (EGD) History of tooth extraction History of wisdom tooth extraction History of brain surgery x2---[address] [facility] [place], 2018 @ [facility]--for brain tumors > caused epilepsy Family History Grandmother (Paternal) Family history of diabetes mellitus Aunt Family history of diabetes mellitus Uncle Family history of diabetes mellitus Father Prostate cancer Heart disease Osteoarthritis Mother Cardiac disorder Grandmother (Maternal) Myocardial infarction Other Asthma Cancer Hypertension No family history of adverse response to anesthesia No family history of bleeding disorder Stroke Denies family history of Ovarian cancer Breast cancer Colorectal cancer Social History Smoking Status: Never smoker Second Hand Exposure: No; Do You Dip or Chew Tobacco: Yes; Hx Alcohol Use: No Hx Substance Use: No Preferred Language: Kinyarwanda Communication Ability: Effective Communication Ability Comment: Unable to obtain due to patient condition. Visual Impairment: Limited Hearing Ability: Normal Circulating Nurse Required: No Beliefs That Will Affect Care: None marital status: Single Current Living Situation: Spouse Current Living Situation Comment: and daughter in [place] current occupational status: disabled How many Children do You have: 3 How many Children do You have Comment: able to assist with care if needed Feels Safe at Home: Yes Safety Concerns: Feels Safe At This Time Childhood Exposure to Second-Hand Smoke: Yes (parents smoked) Diet: regular Diet Comment: going to be starting low carb/low calorie diet. caffeine: No (1/2 20 oz bottle of mountain dew. ) during the past year weight has: increased > 10 lbs Physical Activity Frequency: Daily Physical Activity Frequency Comment: walking, 1.5 miles daily. Seatbelt Use: always Do you think of yourself as: straight/heterosexual Gender Identity: Male Assistive Devices: CPAP, Glasses, Oxygen - Continuous and Walker Exam (Neuro) Physical Exam: HEENT: normocephalic grossly Neuro: Mental: Sleepy but able to answer simple questions. fluent speech, no apraxia, CN: PERRL, Full EOM, symmetric face, Motor: No abnormal movements, normal tone, moves all limbs well. Coord: intact grossly. Impression: 54 yo male with known PNES with spell. EEG normal. pt with hypotension and respiratory distress. stable from seizure stand point. Recommendations: no further seizure work up needed. continue same AEDs as outpt. continue medical management for other issues. he can f/u with [facility] as outpt, routine. avoid hypotension call again if new question. Chart reviewed I have spent more than 50% educating patient about potential diagnosis and neurological evaluation and coordinating care with patient's treatment team. Total time spent (including chart review and coordination of care): 45 min (this includes chart review). Results & Data Vital Signs (Past 12 Hours) Vital Signs Temp Pulse Pulse Resp BP BP Pulse Ox 03/28/25 08:10 88 14 99 03/28/25 07:35 90 18 98 03/28/25 07:20 36.6 C 90 18 127/84 98 03/28/25 05:46 100 H 03/28/25 04:31 124/65 03/28/25 04:30 03/28/25 03:47 36.4 C L 89 12 120/80 97 03/27/25 23:43 89 16 120/77 03/27/25 23:05 36.5 C 92 H 14 128/83 97 03/27/25 22:36 92 H O2 Del Method O2 Flow Rate FiO2 03/28/25 08:10 40 03/28/25 07:35 Nasal Cannula 4 03/28/25 07:20 Nasal Cannula 3 03/28/25 05:46 03/28/25 04:31 03/28/25 04:30 Room Air 03/28/25 03:47 Room Air 03/27/25 23:43 03/27/25 23:05 Room Air 03/27/25 22:36 PG Care Time/CCT Total # of Minutes Spent Total Time Spent with Patient: Total time spent is greater than 50% in coordination of care (as documented) at patient's floor/unit and/or counseling patient: Coding Level of Care Code 36693 IN/OBS CONSULT LVL 3,45M Diagnoses Transient alteration of awareness R40.4
--- NOTE | 2025-03-28 12:46 | Pharmacy Report ---
Pharmacy Glycemic Short Note 2 - Date of Service March 28, 2025 - Glycemic Short BSG Results (Last 24 hours): 03/27/25 03/27/25 03/27/25 16:26 21:03 23:14 Glucose POC Glucose 96 127 H 114 H 03/28/25 03/28/25 03/28/25 03:58 06:32 07:23 Glucose 100 H POC Glucose 104 H 82 03/28/25 11:26 Glucose POC Glucose 88 OUTPATIENT ANTIDIABETIC REGIMEN: * Lantus 12 units SQ HS * Mounjaro 2.5mg SQ LACKEY * metformin 1000mg PO BID * HbA1c 5.8% (02/13/25) ASSESSMENT: * Anders is a 54 year old male admitted with seizures/hypotension and a history of type 2 diabetes mellitus. Pharmacy has been consulted to assist with glycemic management while inpatient. * Fasting BSG this below goal range, will add a scale of Lantus at bedtime if BSGs are above goal range. * NovoLog at a weight based stress of 1.5 PLAN FOR INPATIENT GLYCEMIC CONTROL: * Hold outpatient oral diabetes medications * Basal insulin * Lantus 0-5 units SQ HS if BSG is greater than 180mg/dL * Bolus insulin * NovoLog per scale ACHS or Q6hrs while NPO * Goal Range: Low 120 mg/dL - High 160 mg/dL * Correction Factor: 35 mg/dL/unit * Nutritional / Prandial insulin per carb ratio of 1 unit per 10 grams CHO consumed
--- NOTE | 2025-03-28 13:48 | Hospitalist Progress Note ---
Date of Service March 28, 2025 Assessment & Plan (1) Seizure disorder: (2) Chronic adrenal insufficiency: (3) Chronic narcotic dependence: (4) Bipolar disorder: (5) Type 2 diabetes mellitus: Plan This is a 54-year-old male who was just discharged from the hospital 3 days ago after being treated for COPD flare and pneumonia, went to his PCP appointment and was found to have multiple seizures. He was thus transferred to the ER. He was also noted to be slightly hypotensive upon presentation 1. Generalized tonic-clonic seizure. The patient has a history of seizure disorder versus pseudoseizure The patient was given IV Keppra and IV Ativan in the ER The patient continued to have several episodes of seizure overnight. Requiring IV Ativan several times EEG completed Neurology evaluated the patient. This is pseudoseizure per neurology Does not recommend any changes to his home medications and antiseizure medications Will continue p.o. Depakote, p.o. Keppra, p.o. Vimpat for now Seizure precautions 2. Hypotension Seems to have resolved 3. Metabolic encephalopathy Most likely medication induced. Patient was given several doses of Ativan overnight ABG did not show CO2 narcosis even though the patient did not wear CPAP overnight. CPAP was started N.p.o. until the patient wakes up and safely able to tolerate p.o. 3. Leukocytosis Most likely steroid induced as the patient was recently discharged on p.o. prednisone taper 4. 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 Obstructive sleep apnea Continue CPAP 6. Bipolar disorder Continue lithium, Abilify, Remeron, Seroquel, trazodone, venlafaxine 7. Recent COPD/pneumonia Patient is not wheezing Stop prednisone Admission and Anticipated Discharge Date Admission Date: March 28, 2025 Subjective Noted overnight events. Patient has had several episodes of "seizures". He was given several doses of Ativan. This morning, the patient is somnolent Review of Systems Review of Systems: Unobtainable due to cognitive status Physical Exam Physical Exam: General: Drowsy. Arousable with loud vocal stimulus. Obese patient Heart: S1, S2/regular rate and rhythm, no murmur rubs or gallops Lungs: Clear to auscultation bilaterally. Normal effort Abdomen: Soft/nontender/nondistended. No hepatosplenomegaly Extremities: No clubbing/cyanosis. No edema Behavior: Unable to assess Results & Data Results & Data Vital Signs (Past 12 Hours) Vital Signs Temp Pulse Pulse Resp BP Pulse Ox O2 Del Method 03/28/25 11:27 36.5 C 90 18 112/78 98 BiPAP 03/28/25 10:37 BiPAP 03/28/25 08:10 88 14 99 03/28/25 07:35 90 18 98 Nasal Cannula 03/28/25 07:20 36.6 C 90 18 127/84 98 Nasal Cannula 03/28/25 05:46 100 H 03/28/25 04:31 124/65 03/28/25 04:30 Room Air 03/28/25 03:47 36.4 C L 89 12 120/80 97 Room Air O2 Flow Rate FiO2 03/28/25 11:27 03/28/25 10:37 03/28/25 08:10 40 03/28/25 07:35 4 03/28/25 07:20 3 03/28/25 05:46 03/28/25 04:31 03/28/25 04:30 03/28/25 03:47 Laboratory Results Abnormal lab results 03/27/25 03/27/25 03/28/25 Range/Units 21:03 23:14 03:58 WBC (4.8-10.8) K/ul RBC (4.70-6.10) M/uL Hgb (14.0-18.0) g/dl POC Hgb (14.0-18.0) g/dl Hct (42.0-52.0) % POC Hct (42-52) % RDW Std Deviation (36.4-46.3) fL RDW Coeff of Yanira (11.5-14.5) % MPV (9.4-12.4) fL POC pCO2 (35-46) mmHg POC pO2 (80-95) mmHg POC HCO3 (19-24) clovis/L POC Total CO2 (24-31) mmol/L POC Base Excess (-9-1.8) clovis/L POC ABG O2 Sat (90-95) % Carbon Dioxide (21-32) mmol/L BUN (6-23) mg/dl BUN/Creatinine Ratio (10-20) Glucose (70-99(Fasting)) mg/dl POC Glucose 127 H 114 H 104 H (70-99) mg/dl [place] (0.6-1.2) mmol/L 03/28/25 03/28/25 03/28/25 Range/Units 06:32 06:35 08:07 WBC 15.02 H (4.8-10.8) K/ul RBC 4.32 L (4.70-6.10) M/uL Hgb 12.7 L (14.0-18.0) g/dl POC Hgb 11.9 L (14.0-18.0) g/dl Hct 38.3 L (42.0-52.0) % POC Hct 35 L (42-52) % RDW Std Deviation 48.8 H (36.4-46.3) fL RDW Coeff of Yanira 14.9 H (11.5-14.5) % MPV 8.9 L (9.4-12.4) fL POC pCO2 48 H (35-46) mmHg POC pO2 48 L (80-95) mmHg POC HCO3 34 H (19-24) clovis/L POC Total CO2 35 H (24-31) mmol/L POC Base Excess 10.0 H (-9-1.8) clovis/L POC ABG O2 Sat 85.0 L (90-95) % Carbon Dioxide 36 H (21-32) mmol/L BUN 31 H (6-23) mg/dl BUN/Creatinine Ratio 35.6 H (10-20) Glucose 100 H (70-99(Fasting)) mg/dl POC Glucose (70-99) mg/dl [place] 0.2 L (0.6-1.2) mmol/L PG Care Time/CCT Total # of Minutes Spent Total Time Spent with Patient: Total time spent is greater than 50% in coordination of care (as documented) at patient's floor/unit and/or counseling patient: Coding Level of Care Code 55658 SUB INP/OBS CARE 2/35MIN Diagnoses Seizure disorder G40.909 Chronic adrenal insufficiency E27.40 Chronic narcotic dependence F11.20 Bipolar disorder F31.9 Type 2 diabetes mellitus E11.9
[2025-03-28] MEDS: LACOSAMIDE 50 MG TABLET PO SCH (20:15)
[2025-03-28] MEDS: levETIRAcetam 500 MG TAB PO SCH (20:16)
[2025-03-28] MEDS ORDERED: LANTUS PER UNIT CHARGE SC SCH (21:00)
[2025-03-28] MEDS: LANTUS PER UNIT CHARGE SC SCH (21:16)
[2025-03-29 04:53] VITALS: RESP 18
[2025-03-29 07:44] LABS: Hematocrit (blood only) 40.5 % (42.0-52.0); Hemoglobin 13.5 g/dl (14.0-18.0); Mean Corpuscular Hemoglobin 29.3 pg (25.0-34.0); Mean Corpuscular Hgb Conc 33.3 g/dL (32.0-36.0); Mean Corpuscular Volume 87.9 fL (80.0-100.0); Mean Platelet Volume 8.8 fL (9.4-12.4); Platelet Count 170 K/uL (130-400); RDW Coefficient of Variation 15.2 % (11.5-14.5); RDW Standard Deviation 48.8 fL (36.4-46.3); Red Blood Count 4.61 M/uL (4.70-6.10); White Blood Count 12.82 K/ul (4.8-10.8)
[2025-03-29 07:59] LABS: BUN Creatinine Ratio 26.3 (10-20); Creatinine Clr Calc Pharmacy 113.5 ml/min; Potassium 3.9 mmol/L (3.5-5.1)
--- NOTE | 2025-03-29 09:18 | Neurology Progress Note ---
Date of Service March 29, 2025 Assessment & Plan (1) Nonepileptic episode: Admission and Anticipated Discharge Date Admission Date: March 28, 2025 Subjective pt yesterday again had tremors and spells where he is shaking his hands and body and eyes closed. video taken of the event. reviewed the video. pt also with forcible eye closure when try to open the eyes during the event. pt states he had shaking again this morning. pt fully alert and oriented this morning. Results & Data Vital Signs (Past 12 Hours) Vital Signs Temp Pulse Pulse Resp BP BP Pulse Ox 03/29/25 07:20 101 H 18 95 03/29/25 07:03 36.4 C L 105 H 18 133/85 96 03/29/25 04:04 36.9 C 89 18 123/82 98 03/29/25 03:53 99 H 13 99 03/28/25 23:10 101 H 03/28/25 22:56 94 H 19 98 03/28/25 22:49 37.0 C 98 H 18 117/76 97 03/28/25 22:03 O2 Del Method O2 Flow Rate FiO2 03/29/25 07:20 Nasal Cannula 3 03/29/25 07:03 Nasal Cannula 3 03/29/25 04:04 BiPAP 03/29/25 03:53 40 03/28/25 23:10 03/28/25 22:56 40 03/28/25 22:49 BiPAP 03/28/25 22:03 BiPAP 40 Exam (Neuro) Physical Exam: Neuro: Mental: AOx4, fluent speech, normal comprehension, no apraxia, no neglect CN: PERRL, Full EOM, symmetric face, midline T/U/P Motor: nonspecific hand tremors randomly without change in mental status. , 5/5 t/o bilaterally Coord: intact grossly Impression: 54 yo male with overall picture consistent with nonepileptic spells (Pseudo seizures). Reviewed the video of the event and very much consistent with pseudo seizures. he has had extensive work up and evaluation from [facility] and also our neurology clinic with documented nonepileptic spells. his current events very much consistent with nonepileptic in nature. He is already on 3 AEDs and EEG again on this admission normal. Recommendations: -DO NOT sedate pt with ativan whenever h e has spells. get psychiatry consult for management as this is psychiatric condition no need for EEG continue tx for his respiratory issue and other medical issues. call if new question. Chart reviewed I have spent more than 50% educating patient about potential diagnosis and neurological evaluation and coordinating care with patient's treatment team. Total time spent (including chart review and coordination of care): 35 min (this includes chart review). PG Care Time/CCT Total # of Minutes Spent Total Time Spent with Patient: Total time spent is greater than 50% in coordination of care (as documented) at patient's floor/unit and/or counseling patient: Coding Level of Care Code 52548 SUB INP/OBS CARE 2/35MIN Diagnoses Nonepileptic episode R56.9
[2025-03-29] MEDS: NICOTINE 21 MG/24 HR TDSY TD SCH (09:28)
--- NOTE | 2025-03-29 10:40 | Discharge Summary ---
Date of Service March 29, 2025 Admission HPI Per Admitting Provider This is a 54-year-old male with panhypopituitary is him, central hypothyroidism, central adrenal insufficiency, chronic respiratory failure on 3 to 4 L of O2, history of COPD and pneumonia (recently discharged on 03/24), bipolar disorder, seizure disorder versus pseudoseizures, history of status epilepticus requiring intubation at [facility] in fall 2023, BPH, migraine, obstructive sleep apnea with his CPAP, paroxysmal atrial fibrillation status post Watchman procedure, chronic narcotic dependence using [place] every 6 hours. He went to his PCP for a posthospitalization appointment today. While at the PCPs office, he had 3 episodes of seizure at the clinic. His is at the bedside and history was obtained from her primarily. She stated that he has been compliant to his seizure medications. While in the ER, he was noted to be dry with an initial blood pressure of 80/60. He was given IV fluids and 50 mg of IV hydrocortisone. The ED physician spoke to neurologist who recommended admission, repeat EEG. He was given IV Keppra and IV Ativan for seizures. He is currently seizure-free. Principal Diagnosis Pseudoseizures Dehydration Discharge Exam General: Awake, conversant. Obese patient Heart: S1, S2/regular rate and rhythm, no murmur rubs or gallops Lungs: Clear to auscultation bilaterally. Normal effort Abdomen: Soft/nontender/nondistended. No hepatosplenomegaly Extremities: No clubbing/cyanosis. No edema Behavior: Unable to assess Discharge Data Allergies Allergy/AdvReac Type Severity Reaction Status Date / Time clindamycin Allergy Intermediate SWELLING Verified 03/27/25 10:30 Iodinated Contrast Media Allergy Intermediate face/eye Verified 03/27/25 10:30 swelling Quinolones Allergy Intermediate HIVES Verified 03/27/25 10:30 tomato AdvReac Verified 03/27/25 10:30 Consultations 03/27/25 13:08 ED Decision to Admit Stat 03/27/25 16:16 Consult Neurology Routine 03/28/25 14:20 Consult Psychiatry Routine Ordered Studies 03/27/25 11:58 CT head/brain wo con Stat Hospital Course (1) Seizure disorder: (2) Chronic adrenal insufficiency: (3) Chronic narcotic dependence: (4) Bipolar disorder: (5) Type 2 diabetes mellitus: Plan This is a 54-year-old male who was just discharged from the hospital 3 days ago after being treated for COPD flare and pneumonia, went to his PCP appointment and was found to have multiple seizures. He was thus transferred to the ER. He was also noted to be slightly hypotensive upon presentation 1. Generalized tonic-clonic seizure. The patient has a history of seizure disorder versus pseudoseizure The patient was given IV Keppra and IV Ativan in the ER The patient continued to have several episodes of seizure overnight. Requiring IV Ativan several times EEG completed Neurology evaluated the patient. This is pseudoseizure per neurology. Please see neurology notes Does not recommend any changes to his home medications and antiseizure medications Will continue p.o. Depakote, p.o. Keppra, p.o. Vimpat for now Patient will need to see his primary neurologist within 2 weeks, PCP in 1 week and psychiatrist in 2 weeks. 2. Hypotension Seems to have resolved 3. Metabolic encephalopathy Most likely medication induced. Patient was given several doses of Ativan overnight Resolved 3. Leukocytosis Most likely steroid induced as the patient was recently discharged on p.o. prednisone taper 4. 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 Obstructive sleep apnea Continue CPAP 6. Bipolar disorder Continue lithium, Abilify, Remeron, Seroquel, trazodone, venlafaxine 7. Recent COPD/pneumonia Patient is not wheezing Stop prednisone Patient is deemed stable for discharge. I spoke to patient's to explain to her that he has pseudoseizures. He will need to see his psychiatrist and follow-up with his neurologist outpatient Total Time Total Time Spent Total Time Spent (In Minutes): 35 Discharge Plan Discharge Items Patient Disposition: Home - Self-Care Reason For Visit: SEIZURE Discharge Diagnosis: Pseudoseizures Dehydration Activity: Resume your previous activity Non-emergency contact: Primary Care Provider Call non-emergency contact if: you have any medication questions and your symptoms worsen Follow-up/Referrals: Larry Amaral MD [Primary Care Provider] - 04/05/25 10:00 am (Hospital follow up on April 05 at 10 am.) Gennaro Ordonez MD [Physician] - 04/02/25 9:30 am (Hospital follow up on April 02 at 9:30 am.) Diet: Carb Consistent or DM2 Addtl Attending Provider Instructions: Advised to follow-up with PCP in 1 week Advised to follow-up with neurologist in 2 weeks Advised to follow-up with psychiatrist in 2 weeks Pending Studies at Discharge: No Stand-Alone Forms: My [facility] [employer], Smoking Cessation Medications and DC Order Prescriptions: Continued clopidogrel [Plavix] 75 mg tablet 75 mg PO DAILY lithium carbonate 300 mg tablet 300 mg PO AMHS fluticasone propionate [Flonase Allergy Relief] 50 mcg/actuation spray,suspension 1 spray intranasal HS PRN (Reason: allergy symptoms) Qty: 16 0RF Rx Instructions: administer into each nostril (DME) insulin syringe-needle U-100 [BD Insulin Syringe Ultra-Fine] 1 mL 30 gauge x 1/2" syringe See Rx Instructions .Route Qty: 300 1RF Rx Instructions: use tid (DME) OneTouch Verio test strips Strip See Rx Instructions .MEDSUPPLY Qty: 150 5RF Rx Instructions: check blood sugars 4 times a day (DME) blood-glucose meter [OneTouch Verio Reflect Meter] Misc See Rx Instructions miscellaneous .MEDSUPPLY Qty: 1 0RF Rx Instructions: As directed (DME) lancets [OneTouch Delica Plus Lancet] 33 gauge misc See Rx Instructions .MEDSUPPLY Qty: 150 5RF Rx Instructions: As directed check blood sugars 4 times a day (DME) FreeStyle Rosalie 2 Sensor Kit See Rx Instructions .Route Qty: 6 3RF Rx Instructions: Change every 14 days Botox 200 unit recon soln See Rx Instructions IM .COMPLEX Qty: 1 3RF Rx Instructions: 155 UNITS IM IN THE FACE AND NECK MUSCLES EVERY 12 WEEKS PER MIGRAINE PROTOCOL rosuvastatin 20 mg tablet 20 mg PO QAM Qty: 90 2RF pantoprazole 40 mg tablet,delayed release (DR/EC) 40 mg PO BID Qty: 60 5RF (DME) pen needle, diabetic [BD Vy 2nd Gen Pen Needle] 32 gauge x 5/32" needle See Rx Instructions miscellaneous .MEDSUPPLY Qty: 100 3RF Rx Instructions: inject with a new pen needle daily lorazepam 0.5 mg tablet 0.5 mg PO DAILY PRN (Reason: Seizure Activity) levetiracetam 1,000 mg tablet 1,000 mg PO Q12H Qty: 60 6RF aspirin 81 mg tablet,delayed release (DR/EC) 81 mg PO QAM Qty: 90 3RF Norditropin FlexPro 5 mg/1.5 mL (3.3 mg/mL) pen injector 0.3 mg SQ QPM Qty: 2 5RF metoprolol succinate 25 mg tablet extended release 24 hr 25 mg PO HS Qty: 90 3RF desmopressin 0.2 mg tablet 0.4 mg PO BID Qty: 120 5RF lisinopril 40 mg tablet 40 mg PO DAILY Qty: 90 2RF divalproex 500 mg tablet,delayed release (DR/EC) 1,000 mg PO DAILY Qty: 60 6RF lacosamide 150 mg tablet 150 mg PO BID Qty: 60 5RF (DME) Oxygen Home Liters Per Minute See Rx Instructions .Route Rx Instructions: 4 L o2 via NC As directed, metformin 1,000 mg tablet 1,000 mg PO BID Qty: 180 3RF Hold Instructions: Per Dr Voss to hold as of 11/23/22 testosterone 20.25 mg/1.25 gram (1.62 %) gel in metered-dose pump 2 pump TOP PM Qty: 75 5RF Rx Instructions: apply 1 pump amount over max area of EACH upper arm and shoulder PDMP Queried ok to fill 03/17/2023 DS cholecalciferol (vitamin D3) 50 mcg (2,000 unit) capsule 50 mcg PO QPM Qty: 90 1RF hydrocortisone 10 mg tablet 10 mg PO UD Qty: 135 1RF Rx Instructions: TAKE 20mg IN THE AM AND 10mg IN THE afternoon around 2 o clock. MAY DOUBLE THE DOSE IN TIMES OF STRESS. (DME) FreeStyle Rosalie 2 [place] Misc See Rx Instructions .Route Qty: 1 0RF Rx Instructions: Check blood glucose before each meal (DME) OneTouch Verio test strips Strip See Rx Instructions .Route Rx Instructions: Test blood sugar two times daily mirtazapine [Remeron] 30 mg tablet 30 mg PO UD Rx Instructions: Take 30mg w/ 15mg tablet to equal 45mg at bedtime. albuterol sulfate [Ventolin HFA] 90 mcg/actuation HFA aerosol inhaler 2 inh inhalation Q6H PRN (Reason: shortness of breath or wheezing) Qty: 6.7 2RF budesonide 0.5 mg/2 mL suspension for nebulization 0.5 mg inhalation DAILY Qty: 60 5RF (DME) nebulizers [Compact Compressor Nebulizer] Misc See Rx Instructions .Route Qty: 1 0RF Rx Instructions: One compact compressor nebulizer. Use as directed. Please include tubing, mouth piece and cup. ipratropium-albuterol 0.5 mg-3 mg(2.5 mg base)/3 mL solution for nebulization 3 ml inhalation QID PRN (Reason: wheezing) Qty: 90 0RF trazodone 100 mg tablet 100 mg PO HS ferrous sulfate 325 mg (65 mg iron) tablet 325 mg PO .qod famotidine [Acid Hand Spray Operator (famotidine)] 20 mg tablet 20 mg PO DAILY 42 Days Qty: 42 3RF insulin glargine [Lantus Solostar U-100 Insulin] 100 unit/mL (3 mL) insulin pen 12 unit SUBCUT HS Hold Instructions: Has been on hold for a few weeks per pt Patient Comments: PER PT HE IS TAKING 12 UNITS -CONFIRMED ON 07/19/24 Mounjaro 2.5 mg/0.5 mL pen injector 2.5 mg subcut Q7D Qty: 2 3RF Rx Instructions: tuesday Nurtec ODT 75 mg tablet,disintegrating 75 mg PO DAILY PRN (Reason: Migraine Headache) Qty: 16 6RF doxycycline hyclate 100 mg tablet 100 mg PO BID magnesium oxide 400 mg (241.3 mg magnesium) tablet 400 mg PO DAILY prazosin 2 mg capsule 2 mg PO TID potassium chloride 10 mEq tablet extended release 10 meq PO DAILY propranolol 120 mg capsule,extended release 24hr 120 mg PO HS Rx Instructions: Pt sates he thinks endocrinology ordered this for him- currently out Spiriva Respimat 2.5 mcg/actuation mist 2 puff inhalation DAILY Qty: 4 4RF sodium chloride 7 % solution for nebulization 1 inh inhalation BID Qty: 240 3RF acetylcysteine 200 mg/mL (20 %) solution 2 ml inhalation BID PRN (Reason: Chest congestion) Qty: 100 6RF duloxetine 60 mg capsule,delayed release(DR/EC) 60 mg PO UD Rx Instructions: Pt states that he takes 60mg in the morning and 30mg in the evening. Original Directions: 60mg by mouth twice daily dutasteride 0.5 mg capsule 0.5 mg PO QAM Rx Instructions: TAKE 1 CAPSULE BY MOUTH DAILY IN THE MORNING Baqsimi 3 mg/actuation spray,non-aerosol 3 mg intranasal ONCE PRN (Reason: Severe Hypoglycemia) Rx Instructions: for treatment of severe hypoglycemia, second dose may be given if patient does not respond after 15 minutes . Per caregiver, pt has never has to use this medication. bumetanide 1 mg Tablet 1 mg PO QAM Qty: 30 0RF vitamin B complex [Vitamins B Complex] Capsule 1 cap PO QAM Qty: 30 0RF hydrocodone-acetaminophen 7.5-325 mg tablet 1 tab PO Q6H oxybutynin chloride 5 mg tablet extended release 24hr 5 mg PO DAILY Rx Instructions: TAKE 1 TABLET BY MOUTH DAILY arformoterol [Brovana] 15 mcg/2 mL solution for nebulization 2 ml inhalation BID venlafaxine 150 mg capsule,extended release 24hr 150 mg PO DAILY quetiapine 50 mg tablet extended release 24 hr 50 mg PO DAILY nystatin 100,000 unit/gram cream 1 applic topical BID PRN (Reason: Other) levothyroxine [Synthroid] 150 mcg Tablet 150 mcg PO DAILYBB Qty: 30 0RF formoterol fumarate [Perforomist] 20 mcg/2 mL Solution For Nebulization 20 mcg NEB BIDR Qty: 60 0RF prednisone 10 mg tablet 10 mg PO DIRECTED Qty: 30 0RF Rx Instructions: 4 tabs for 3 days then 3 tabs for 3 days then 2 tabs for 3 days then 1 tab for 3 days aripiprazole 5 mg tablet 5 mg PO DAILY Discharge Orders: Discharge Order (Routine); Ordered 03/29/25 Ordered By: Swati Rodriguez Admission Data Admit Date/Time: 03/28/25 12:50 Attending Provider: Swati Rodriguez Admit Provider: Swati Rodriguez Primary Care Provider: Larry Amaral Other Providers: Swati Rodriguez; Ricardo Ribeiro; Wendy Trinh; Keon Garcia; Damaris Galeano; Mary Garadi,Bijan R; Rodrigue Mathew; [facility] Other Interventions: Discharge Summary Assessment (RN) Last Done: 03/29/25 14:39
[2025-03-29 11:10] VITALS: BP 135/85; PULSE 106; TEMP 97.9; O2SAT 99
--- NOTE | 2025-03-29 13:14 | Psychiatric Consultation ---
Date of Consultation March 29, 2025 Impression / Recommendations Impression Diagnostically no evidence for major mood disorder symptoms at this time. Agree that increased stress, anxiety or depression can certainly precipitate psychogenic nonepileptic seizures. Reviewed common that an inidivudal can have both PNES and epileptic seizures and importance of continuing to work with neurology and take his prescribed medications. We also reviewed PNES and how these differ from epileptic seizure events and why ongoing psychotherapy is the recommended treatment for this component of his seizures. There are no FDA approved medications for treatment of PNES and psychotherapy such as CBT remains the mainstay of treatment. Encouragingly he is already established with a therapist and attends weekly sessions, encourage he continue with this. No current reason to make any changes to his psychiatric medications however, encouraged him to consider outpatient psychiatry and discussed local option for this. Would closely monitor use of dual SNRI medications (duloxetine AND Effexor) as well as [place], trazodone, mirtazapine, abilify and Seroquel as these all increase risk for serotonin syndrome. Overall, I spent a total of 60 minutes with this case including review of chart records, review of labwork, review of EKG QTc, direct evaluation of the patient at bedside, counseling the patient, discussion of the patient with the hospitalist provider, discussion with the psychiatric liason during clinical rounds and documentation in the electronic health record. (1) Nonepileptic episode: (2) Anxiety: (3) Depression: Plan -No new psychiatric recommendations, discussed option for him to consider [place] for outpatient psychiatry if he becomes interested in this (reviewed that he can call to self-refer if he desires this) -Continue with weekly outpatient psychotherapy -Continue with outpatient neurology follow-up Psych History Identifying Data 54 yo man with multiple medical diagnoses including hypothyroidism, adrenal insufficiency, chronic respiratory failure on 3 to 4 L of oxygen, seizure disorder, psychogenic nonepileptic seizures (PNES) and bipolar disorder admitted medically following multiple seizures. Psychiatry consulted by neurology for recommendations regarding psychogenic nonepileptic seizures. Chief Complaint "Tired". History of Present Illness Waldo was last seen by the psychiatry consult service in November 2023 and Novem 2022. Per admission H&P on 03/27/[address] Rodriguez: " He went to his PCP for a posthospitalization appointment today. While at the PCPs office, he had 3 episodes of seizure at the clinic. His is at the bedside and history was obtained from her primarily. She stated that he has been compliant to his seizure medications. While in the ER, he was noted to be dry with an initial blood pressure of 80/60. He was given IV fluids and 50 mg of IV hydrocortisone. The ED physician spoke to neurologist who recommended admission, repeat EEG. He was given IV Keppra and IV Ativan for seizures. He is currently seizure-free." Today he reports feeling tired. He attributes this to his breathing difficulty. Reports some symptoms of depression and anxiety but denies any SI nor any safety concerns. No symptoms of psychosis nor sj. He likes his current psychiatric medications and denies side effects. He continues to work with his outpatient therapist, Susan, at [facility] weekly. Allergies Allergy/AdvReac Type Severity Reaction Status Date / Time clindamycin Allergy Intermediate SWELLING Verified 03/27/25 10:30 Iodinated Contrast Media Allergy Intermediate face/eye Verified 03/27/25 10:30 swelling Quinolones Allergy Intermediate HIVES Verified 03/27/25 10:30 tomato AdvReac Verified 03/27/25 10:30 Home Medications Medication Instructions Recorded Confirmed Type lithium carbonate 300 mg tablet 300 mg PO AMHS 06/04/22 03/27/25 History mirtazapine 30 mg tablet (Remeron) 30 mg PO UD 06/23/22 03/27/25 History blood sugar diagnostic (iWeb TechnologiesTouch 08/06/22 03/27/25 History Verio test strips) fluticasone propionate 50 1 spray intranasal HS PRN allergy 03/16/23 03/27/25 Rx mcg/actuation nasal symptoms #16 grams spray,suspension (Flonase Allergy Relief) FreeStyle Rosalie 2 [place] (flash #1 ea 05/13/23 03/27/25 Rx glucose scanning reader) blood sugar diagnostic (Magikflixuch #150 ea 11/22/23 03/27/25 Rx Verio test strips) blood-glucose meter (Magikflixuch #1 ea 11/22/23 03/27/25 Rx Verio Reflect Meter) insulin syringe-needle U-100 1 mL #300 ea 11/22/23 03/27/25 Rx 30 gauge x 1/2" (BD Insulin Syringe Ultra-Fine) lancets 33 gauge (Vascular Designs #150 ea 11/22/23 03/27/25 Rx Plus Lancet) albuterol sulfate 90 mcg/actuation 2 inh inhalation Q6H PRN shortness 02/24/24 03/27/25 Rx aerosol inhaler (Ventolin HFA) of breath or wheezing #6.7 grams dutasteride 0.5 mg capsule 0.5 mg PO QAM 04/06/24 03/27/25 History glucagon 3 mg/actuation nasal 3 mg intranasal ONCE PRN Severe 04/06/24 03/27/25 History spray (Baqsimi) Hypoglycemia FreeStyle Rosalie 2 Sensor (flash #6 ea 05/02/24 03/27/25 Rx glucose sensor) aripiprazole 5 mg tablet 5 mg PO DAILY 05/29/24 03/27/25 History insulin glargine 100 unit/mL (3 12 unit subcut HS 07/19/24 03/27/25 History mL) subcutaneous pen (Lantus Solostar U-100 Insulin) ipratropium 0.5 mg-albuterol 3 mg 3 ml inhalation QID PRN wheezing 07/31/24 03/27/25 Rx (2.5 mg base)/3 mL nebulization #90 mL soln nebulizers (Compact Compressor #1 ea 07/31/24 03/27/25 Rx Nebulizer) Botox 200 unit injection See Rx Instructions IM .COMPLEX #1 09/18/24 03/27/25 Rx (onabotulinumtoxinA) ea rosuvastatin 20 mg tablet 20 mg PO QAM #90 tabs 09/19/24 03/27/25 Rx pantoprazole 40 mg tablet,delayed 40 mg PO BID #60 tabs 09/21/24 03/27/25 Rx release trazodone 100 mg tablet 100 mg PO HS 10/03/24 03/27/25 History pen needle, diabetic 32 gauge x #100 ea 10/23/24 03/27/25 Rx 5/32" (BD Vy 2nd Gen Pen Needle) bumetanide 1 mg tablet 1 mg PO QAM #30 tabs 10/26/24 03/27/25 Rx vitamin B complex (Vitamins B 1 cap PO QAM #30 caps 10/26/24 03/27/25 Rx Complex capsule) hydrocodone 7.5 mg-acetaminophen 1 tab PO Q6H 11/19/24 03/27/25 History 325 mg tablet tirzepatide 2.5 mg/0.5 mL 2.5 mg (0.5 mL) subcut Q7D #2 mL 11/22/24 03/27/25 Rx subcutaneous pen injector (Unruly) lorazepam 0.5 mg tablet 0.5 mg PO DAILY PRN Seizure 11/23/24 03/27/25 History Activity levetiracetam 1,000 mg tablet 1,000 mg PO Q12H #60 tabs 11/26/24 03/27/25 Rx aspirin 81 mg tablet,delayed 81 mg PO QAM #90 tabs 11/27/24 03/27/25 Rx release duloxetine 60 mg capsule,delayed 60 mg PO UD 11/27/24 03/27/25 History release ferrous sulfate 325 mg (65 mg 325 mg PO .qod 11/27/24 03/27/25 History iron) tablet desmopressin 0.2 mg tablet 0.4 mg (2 x 0.2 mg) PO BID #120 11/30/24 03/27/25 Rx tabs metoprolol succinate 25 mg 25 mg PO HS #90 tabs 11/30/24 03/27/25 Rx tablet,extended release 24 hr somatropin 5 mg/1.5 mL (3.3 mg/mL) 0.3 mg (0.09 mL) subcut QPM #2 11/30/24 03/27/25 Rx subcutaneous pen injector syringes (Norditropin FlexPro) clopidogrel 75 mg tablet (Plavix) 75 mg PO DAILY 12/03/24 03/27/25 History budesonide 0.5 mg/2 mL suspension 0.5 mg (2 mL) inhalation DAILY #60 12/04/24 03/27/25 Rx for nebulization mL lisinopril 40 mg tablet 40 mg PO DAILY #90 tabs 12/06/24 03/27/25 Rx divalproex 500 mg tablet,delayed 1,000 mg (2 x 500 mg) PO DAILY #60 12/14/24 03/27/25 Rx release tabs lacosamide 150 mg tablet 150 mg PO BID #60 tabs 12/26/24 03/27/25 Rx famotidine 20 mg tablet (Acid 20 mg PO DAILY 6 weeks #42 tabs 01/11/25 03/27/25 Rx Recruitment Assistant (famotidine)) arformoterol 15 mcg/2 mL solution 2 ml inhalation BID 01/16/25 03/27/25 History for nebulization (Brovana) oxybutynin chloride 5 mg 5 mg PO DAILY 01/16/25 03/27/25 History tablet,extended release 24 hr Oxygen Home 01/30/25 03/27/25 History metformin 1,000 mg tablet 1,000 mg PO BID #180 tabs 02/26/25 03/27/25 Rx rimegepant 75 mg disintegrating 75 mg PO DAILY PRN Migraine 02/28/25 03/27/25 Rx tablet (Nurtec ODT) Headache #16 tabs doxycycline hyclate 100 mg tablet 100 mg PO BID 03/01/25 03/27/25 History magnesium oxide 400 mg (241.3 mg 400 mg PO DAILY 03/01/25 03/27/25 History magnesium) tablet potassium chloride 10 mEq 10 meq PO DAILY 03/01/25 03/27/25 History tablet,extended release prazosin 2 mg capsule 2 mg PO TID 03/01/25 03/27/25 History testosterone 2 pump topical PM #75 grams 03/18/25 03/27/25 Rx nystatin 100,000 unit/gram topical 1 applic topical BID PRN Other 03/19/25 03/27/25 History cream quetiapine 50 mg tablet,extended 50 mg PO DAILY 03/19/25 03/27/25 History release 24 hr venlafaxine 150 mg 150 mg PO DAILY 03/19/25 03/27/25 History capsule,extended release 24 hr formoterol fumarate 20 mcg/2 mL 20 mcg (2 mL) NEB BIDR #60 vials 03/24/25 03/27/25 Rx solution for nebulization (Perforomist) levothyroxine 150 mcg tablet 150 mcg PO DAILYBB #30 tabs 03/24/25 03/27/25 Rx (Synthroid) prednisone 10 mg tablet 10 mg PO DIRECTED #30 tabs 03/24/25 03/27/25 Rx acetylcysteine 200 mg/mL (20 %) 2 ml inhalation BID PRN Chest 03/26/25 03/27/25 Rx solution congestion #100 mL cholecalciferol (vitamin D3) 50 50 mcg PO QPM #90 caps 03/26/25 03/27/25 Rx mcg (2,000 unit) capsule propranolol 120 mg capsule,24 120 mg PO HS 03/26/25 03/27/25 History hr,extended release sodium chloride 7 % for 1 inh inhalation BID #240 mL 03/26/25 03/27/25 Rx nebulization tiotropium bromide 2.5 2 puff inhalation DAILY #4 grams 03/26/25 03/27/25 Rx mcg/actuation mist for inhalation (Spiriva Respimat) hydrocortisone 10 mg tablet 10 mg PO UD #135 tabs 03/28/25 Rx Patient History Medical History Migraine Chronic adrenal insufficiency Growth hormone deficiency Leukocytosis Hematoma Fall Acute on chronic hypoxic respiratory failure Acute asthma exacerbation Lactic acidosis Elevated lactic acid level Transient alteration of awareness Diaphoresis Acute hypoxic respiratory failure Influenza A Influenza A Presence of Watchman left atrial appendage closure device Seizure disorder Obesity CKD (chronic kidney disease), stage III Peripheral edema Atrial fibrillation (02/15/24) Panhypopituitarism Lumbosacral radiculopathy Chronic low back pain Type 2 diabetes mellitus Seizure disorder Chronic respiratory failure with hypoxia Acute hypercapnic respiratory failure Acute hypercapnic respiratory failure Shortness of breath Acute on chronic respiratory failure with hypoxia and hypercapnia Right fibular fracture Closed fracture of right fibula with malunion Laceration of toe of right foot Status epilepticus (09/13/24) Knee hemarthrosis, right (09/13/24) Acute on chronic anemia (09/13/24) Acute metabolic encephalopathy (09/13/24) Acute hypoxic respiratory failure (09/13/24) Syncope and collapse Internal hemorrhoids Hypoglycemia Acute CHF Acute dyspnea Chest pain Toxic encephalopathy Spondylolysis, lumbar region Right lumbar radiculopathy HTN (hypertension) Bipolar disorder Adrenal insufficiency Pituitary adenoma Diabetes Bleeding (02/16/24) Acute blood loss anemia (02/19/24) Recurrent seizures Hyperactive gag reflex BRCA gene positive Family history of BRCA gene mutation PTSD (post-traumatic stress disorder) Epidural lipomatosis Chronic left sacroiliac pain Benzodiazepine overdose Presence of cardiac device Hx of fracture of foot Fracture of fibula, right, closed Cerebral concussion Orthostatic hypotension Pseudoseizures Sensorineural hearing loss of both ears Rectal bleeding History of COVID-19 Mitral valve regurgitation Vertigo Panhypopituitarism Lower extremity edema Elevated LFTs Bilateral hand pain Pituitary neoplasm Kidney stones Prostate mass Bladder mass Obstructive sleep apnea of adult Pituitary diabetes insipidus Surgical History S/P TURP (status post transurethral resection of prostate) History of lumbar fusion [facility] [place] History of cardiac cath 07/2021 - no stents S/P epidural steroid injection History of lithotripsy Status post right foot surgery replaced 5th metatarsal--hardware in place History of bladder surgery remove mass History of prostate surgery remove mass History of colonoscopy History of esophagogastroduodenoscopy (EGD) History of tooth extraction History of wisdom tooth extraction History of brain surgery x2---2004 @ [facility] [place], 2018 @ [facility]--for brain tumors > caused epilepsy Family History Grandmother (Paternal) Family history of diabetes mellitus Aunt Family history of diabetes mellitus Uncle Family history of diabetes mellitus Father Prostate cancer Heart disease Osteoarthritis Mother Cardiac disorder Grandmother (Maternal) Myocardial infarction Other Asthma Cancer Hypertension No family history of adverse response to anesthesia No family history of bleeding disorder Stroke Denies family history of Ovarian cancer Breast cancer Colorectal cancer Social History Smoking Status: Never smoker Second Hand Exposure: No; Do You Dip or Chew Tobacco: Yes; Hx Alcohol Use: No Hx Substance Use: No Preferred Language: Ukrainian Communication Ability: Effective Communication Ability Comment: Unable to obtain due to patient condition. Visual Impairment: Limited Hearing Ability: Normal Orientation & Mobility Specialist Required: No Beliefs That Will Affect Care: None marital status: Single Current Living Situation: Spouse Current Living Situation Comment: and daughter in [place] current occupational status: disabled How many Children do You have: 3 How many Children do You have Comment: able to assist with care if needed Feels Safe at Home: Yes Childhood Exposure to Second-Hand Smoke: Yes (parents smoked) Diet: regular Diet Comment: going to be starting low carb/low calorie diet. caffeine: No (1/2 20 oz bottle of mountain dew. ) during the past year weight has: increased > 10 lbs Physical Activity Frequency: Daily Physical Activity Frequency Comment: walking, 1.5 miles daily. Seatbelt Use: always Do you think of yourself as: straight/heterosexual Gender Identity: Male Assistive Devices: Oxygen - Continuous Physical Exam Vital Signs (Past 24 Hours): Last Vital Signs Temp 36.6 C 03/29/25 11:09 Pulse 106 H 03/29/25 11:09 Resp 18 03/29/25 11:09 BP 135/85 03/29/25 11:09 Pulse Ox 99 03/29/25 11:09 O2 Del Method BiPAP 03/29/25 11:09 O2 Flow Rate 3 03/29/25 08:00 FiO2 40 03/29/25 03:53 Results & Data (PSY) Medications Administered Acetaminophen (Acetaminophen 500 Mg Tab) 1,000 mg PO Q8H PRN PRN Reason: Pain or Fever Stop: 04/26/25 23:19 Last Admin: 03/28/25 20:23 Dose: 1,000 mg Documented By: Admin: 03/27/25 23:36 Dose: 1,000 mg Documented By: TABBY Aripiprazole (Aripiprazole 5 Mg Tab) 5 mg PO DAILY OBDULIO Stop: 04/27/25 08:59 Last Admin: 03/29/25 08:07 Dose: 5 mg Documented By: Admin: 03/28/25 08:53 Dose: Not Given Documented By: AAAshanti Aspirin (Aspirin 81 Mg Ectab) 81 mg PO QAM [facility] Stop: 04/27/25 08:59 Last Admin: 03/29/25 08:07 Dose: 81 mg Documented By: Admin: 03/28/25 08:53 Dose: Not Given Documented By: AAL Budesonide (Budesonide 0.5 Mg/2 Ml Vial (Pulmicort)) 0.5 mg INH DAILY O[facility] Stop: 04/27/25 08:59 Last Admin: 03/29/25 07:18 Dose: 0.5 mg Documented By: Admin: 03/28/25 07:35 Dose: 0.5 mg Documented By: KOKO Clopidogrel Bisulfate (Clopidogrel Bisulfate 75 Mg Tab) 75 mg PO DAILY OBD[facility]IO Stop: 04/27/25 08:59 Last Admin: 03/29/25 08:07 Dose: 75 mg Documented By: Admin: 03/28/25 08:53 Dose: Not Given Documented By: AAL Desmopressin Acetate (Desmopressin Acetate 0.1 Mg Tab) 0.4 mg PO BID OBDULIO Stop: 04/26/25 20:59 Last Admin: 03/29/25 08:09 Dose: 0.4 mg Documented By: Admin: 03/28/25 20:15 Dose: 0.4 mg Documented By: Admin: 03/28/25 08:53 Dose: Not Given Documented By: Admin: 03/27/25 21:19 Dose: 0.4 mg Documented By: TABBY Divalproex Sodium (Divalproex Delay Release 500 Mg Tab) 1,000 mg PO DAILY OBDULIO Stop: 04/27/25 08:59 Last Admin: 03/29/25 08:09 Dose: 1,000 mg Documented By: Admin: 03/28/25 08:53 Dose: Not Given Documented By: ELISSA Duloxetine HCl (Duloxetine Hcl 60 Mg Cap) 60 mg PO BID OBDULIO Stop: 04/26/25 20:59 Last Admin: 03/29/25 08:07 Dose: 60 mg Documented By: Admin: 03/28/25 20:17 Dose: 60 mg Documented By: Admin: 03/28/25 08:53 Dose: Not Given Documented By: Admin: 03/27/25 21:19 Dose: 60 mg Documented By: TABBY Famotidine (Famotidine 20 Mg Tab) 20 mg PO DAILY OBDULIO Stop: 04/27/25 08:59 Last Admin: 03/29/25 08:05 Dose: 20 mg Documented By: Admin: 03/28/25 08:53 Dose: Not Given Documented By: ELISSA Finasteride (Finasteride 5 Mg Tab) 5 mg PO QAM [facility] Stop: 04/27/25 08:59 Last Admin: 03/29/25 08:08 Dose: 5 mg Documented By: Admin: 03/28/25 08:53 Dose: Not Given Documented By: ELISSA Hydrocortisone (Hydrocortisone 10 Mg Tab) 20 mg PO QAM [facility] Stop: 04/27/25 08:59 Last Admin: 03/29/25 08:06 Dose: 20 mg Documented By: Admin: 03/28/25 08:53 Dose: Not Given Documented By: ELISSA Hydrocortisone (Hydrocortisone 10 Mg Tab) 10 mg PO DAILY@1330 [facility] Stop: 04/27/25 13:29 Last Admin: 03/29/25 12:18 Dose: 10 mg Documented By: Admin: 03/28/25 14:55 Dose: Not Given Documented By: ELISSA Insulin Aspart (Insulin Aspart Per Unit Charge) 0 units SC ACHS [facility] Stop: 04/26/25 20:59 Last Admin: 03/29/25 12:17 Dose: 2 units Documented By: COBY Co-signed By: CELSO Admin: 03/29/25 08:04 Dose: 5 units Documented By: COBY Co-signed By: CELSO Admin: 03/28/25 20:47 Dose: Not Given Documented By: Admin: 03/28/25 17:46 Dose: 1 units Documented By: ELISSA Co-signed By: CELSO Admin: 03/28/25 12:59 Dose: Not Given Documented By: Admin: 03/28/25 08:52 Dose: Not Given Documented By: Admin: 03/27/25 21:13 Dose: Not Given Documented By: TABBY Insulin Glargine (Lantus Per Unit Charge) 0 units SC [facility]; Protocol Stop: 04/27/25 20:59 Last Admin: 03/28/25 21:16 Dose: Not Given Documented By: FLACA Lacosamide (Lacosamide 50 Mg Tablet) 150 mg PO BID [facility] Stop: 04/27/25 20:59 Last Admin: 03/29/25 09:27 Dose: 150 mg Documented By: Admin: 03/28/25 20:15 Dose: 150 mg Documented By: FLACA Levetiracetam (Levetiracetam 500 Mg Tab) 1,000 mg PO BID [facility] Stop: 04/27/25 20:59 Last Admin: 03/29/25 08:07 Dose: 1,000 mg Documented By: Admin: 03/28/25 20:16 Dose: 1,000 mg Documented By: FLACA Levothyroxine Sodium (Levothyroxine Sodium 150 Mcg Tablet) 150 mcg PO DAILYBB [facility] Stop: 04/27/25 06:29 Last Admin: 03/29/25 06:23 Dose: 150 mcg Documented By: Admin: 03/28/25 07:28 Dose: Not Given Documented By: ELISSA [place] Carbonate ([place] Carbonate 300 Mg Tab) 300 mg PO BID [facility] Stop: 04/26/25 20:59 Last Admin: 03/29/25 08:07 Dose: 300 mg Documented By: Admin: 03/28/25 20:16 Dose: 300 mg Documented By: Admin: 03/28/25 08:53 Dose: Not Given Documented By: Admin: 03/27/25 21:19 Dose: 300 mg Documented By: TABBY Metoprolol Succinate (Metoprolol Succ 25mg Ext Rel Tab) 25 mg PO [facility] Stop: 04/26/25 20:59 Last Admin: 03/28/25 20:17 Dose: 25 mg Documented By: Admin: 03/27/25 21:19 Dose: 25 mg Documented By: TABBY Mirtazapine (Mirtazapine Tab 15 Mg Tab) 30 mg PO DAILY [facility] Stop: 04/27/25 08:59 Last Admin: 03/29/25 08:08 Dose: 30 mg Documented By: Admin: 03/28/25 08:53 Dose: Not Given Documented By: ELISSA Miscellaneous (Remove Lidoderm Patch) 1 each N/A DAILY@2100 [facility] Stop: 04/27/25 20:59 Last Admin: 03/28/25 20:18 Dose: 1 each Documented By: FLACA Qu[place] (Remove Nicoderm Patch) 1 each N/A DAILY@0859 [facility] Stop: 04/28/25 08:58 Last Admin: 03/29/25 09:28 Dose: 1 each Documented By: COBY Nicotine (Nicotine 21 Mg/24 Hr Tdsy) 1 patch TD QAM [facility] Stop: 04/28/25 08:59 Last Admin: 03/29/25 09:28 Dose: 1 patch Documented By: COBY Quetiapine Fumarate (Quetiapine Fumarate 50 Mg Tabcr) 50 mg PO DAILY [facility] Stop: 04/27/25 08:59 Last Admin: 03/29/25 08:09 Dose: 50 mg Documented By: Admin: 03/28/25 08:53 Dose: Not Given Documented By: ELISSA Rosuvastatin Calcium (Rosuvastatin Calcium 20 Mg Tab) 20 mg PO QAM [facility] Stop: 04/27/25 08:59 Last Admin: 03/29/25 08:08 Dose: 20 mg Documented By: Admin: 03/28/25 08:54 Dose: Not Given Documented By: ELISSA Trazodone HCl (Trazodone Hcl 100 Mg Tab) 100 mg PO [facility] Stop: 04/26/25 20:59 Last Admin: 03/28/25 20:17 Dose: 100 mg Documented By: Admin: 03/27/25 21:19 Dose: 100 mg Documented By: TABBY Venlafaxine HCl (Venlafaxine Hcl Xr 150 Mg Capxr) 150 mg PO DAILY [facility] Stop: 04/27/25 08:59 Last Admin: 03/29/25 08:07 Dose: 150 mg Documented By: Admin: 03/28/25 08:54 Dose: Not Given Documented By: AAL Coding Level of Care Code 10782 IN/OBS CONSULT LVL 4,60M Diagnoses Nonepileptic episode R56.9 Anxiety F41.9 Depression F32.9
== END 2025-03-29 14:40 | disposition home health service (06) | DRG 100 ==
LOC: 2N 11:11 → ED 11:11 → 2N 15:47 → 2S 03-28 04:13

== ENCOUNTER 2025-04-06 12:39 | Inpatient (IN) ==
--- NOTE | 2025-04-06 13:11 | Emergency Department Note ---
History of Present Illness General Chief Complaint: Hematuria Stated Complaint: HEMATURIA, PAIN Time Seen by Provider: 04/06/25 12:52 History of Present Illness Provider Complaint: flank pain Onset (ago): 2 day(s) Pain Consistency: constant Location: R flank Migration to: RLQ Maximum Pain Intensity: 8 Current Pain Intensity: 8 Quality: + stabbing and + sharp Relieved By: + nothing Exacerbated By: + other (Urinating) Context: no foreign travel, no possible food poisoning, no recent antibiotic use or no recent surgery/procedure Associated Symptoms: + hematuria; no nausea, no vomiting, no diarrhea, no fever, no chills, no constipation, no dysuria, no hematemesis, no hematochezia, no melena, no syncope, no headache, no chest pain and no breathing difficulty Home Medications Medication Instructions Recorded Confirmed Type lithium carbonate 300 mg tablet 300 mg PO AMHS 06/04/22 04/05/25 History mirtazapine 30 mg tablet (Remeron) 30 mg PO UD 06/23/22 04/05/25 History blood sugar diagnostic (OneTouch 08/06/22 04/05/25 History Verio test strips) fluticasone propionate 50 1 spray intranasal HS PRN allergy 03/16/23 04/05/25 Rx mcg/actuation nasal symptoms #16 grams spray,suspension (Flonase Allergy Relief) FreeStyle Rosalie 2 [place] (flash #1 ea 05/13/23 04/05/25 Rx glucose scanning reader) [facility] 11/22/23 04/05/25 Rx Verio test strips) blood-glucose meter ([facility] 11/22/23 04/05/25 Rx Verio Reflect Meter) insulin syringe-needle U-100 1 mL #300 ea 11/22/23 04/05/25 Rx 30 gauge x 1/2" (BD Insulin Syringe Ultra-Fine) lancets 33 gauge (TheOfficialBoardTouch Delserjio #150 ea 11/22/23 04/05/25 Rx Plus Lancet) albuterol sulfate 90 mcg/actuation 2 inh inhalation Q6H PRN shortness 02/24/24 04/05/25 Rx aerosol inhaler (Ventolin HFA) of breath or wheezing #6.7 grams dutasteride 0.5 mg capsule 0.5 mg PO QAM 04/06/24 04/05/25 History glucagon 3 mg/actuation nasal 3 mg intranasal ONCE PRN Severe 04/06/24 04/05/25 History spray (Baqsimi) Hypoglycemia FreeStyle Rosalie 2 Sensor (flash #6 ea 05/02/24 04/05/25 Rx glucose sensor) aripiprazole 5 mg tablet 5 mg PO DAILY 05/29/24 04/05/25 History insulin glargine 100 unit/mL (3 12 unit subcut HS 07/19/24 04/05/25 History mL) subcutaneous pen (Lantus Solostar U-100 Insulin) ipratropium 0.5 mg-albuterol 3 mg 3 ml inhalation QID PRN wheezing 07/31/24 04/05/25 Rx (2.5 mg base)/3 mL nebulization #90 mL soln nebulizers (Compact Compressor #1 ea 07/31/24 04/05/25 Rx Nebulizer) Botox 200 unit injection See Rx Instructions IM .COMPLEX #1 09/18/24 04/05/25 Rx (onabotulinumtoxinA) ea rosuvastatin 20 mg tablet 20 mg PO QAM #90 tabs 09/19/24 04/05/25 Rx pantoprazole 40 mg tablet,delayed 40 mg PO BID #60 tabs 09/21/24 04/05/25 Rx release trazodone 100 mg tablet 100 mg PO HS 10/03/24 04/05/25 History pen needle, diabetic 32 gauge x #100 ea 10/23/24 04/05/25 Rx 5/32" (BD Vy 2nd Gen Pen Needle) bumetanide 1 mg tablet 1 mg PO QAM #30 tabs 10/26/24 04/05/25 Rx vitamin B complex (Vitamins B 1 cap PO QAM #30 caps 10/26/24 04/05/25 Rx Complex capsule) hydrocodone 7.5 mg-acetaminophen 1 tab PO Q6H 11/19/24 04/05/25 History 325 mg tablet lorazepam 0.5 mg tablet 0.5 mg PO DAILY PRN Seizure 11/23/24 04/05/25 History Activity levetiracetam 1,000 mg tablet 1,000 mg PO Q12H #60 tabs 11/26/24 04/05/25 Rx aspirin 81 mg tablet,delayed 81 mg PO QAM #90 tabs 11/27/24 04/05/25 Rx release duloxetine 60 mg capsule,delayed 60 mg PO UD 11/27/24 04/05/25 History release ferrous sulfate 325 mg (65 mg 325 mg PO .qod 11/27/24 04/05/25 History iron) tablet desmopressin 0.2 mg tablet 0.4 mg (2 x 0.2 mg) PO BID #120 11/30/24 04/05/25 Rx tabs metoprolol succinate 25 mg 25 mg PO HS #90 tabs 11/30/24 04/05/25 Rx tablet,extended release 24 hr somatropin 5 mg/1.5 mL (3.3 mg/mL) 0.3 mg (0.09 mL) subcut QPM #2 11/30/24 04/05/25 Rx subcutaneous pen injector syringes (Norditropin FlexPro) clopidogrel 75 mg tablet (Plavix) 75 mg PO DAILY 12/03/24 04/05/25 History budesonide 0.5 mg/2 mL suspension 0.5 mg (2 mL) inhalation DAILY #60 12/04/24 04/05/25 Rx for nebulization mL lisinopril 40 mg tablet 40 mg PO DAILY #90 tabs 12/06/24 04/05/25 Rx divalproex 500 mg tablet,delayed 1,000 mg (2 x 500 mg) PO DAILY #60 12/14/24 04/05/25 Rx release tabs lacosamide 150 mg tablet 150 mg PO BID #60 tabs 12/26/24 04/05/25 Rx famotidine 20 mg tablet (Acid 20 mg PO DAILY 6 weeks #42 tabs 01/11/25 04/05/25 Rx Guardian Ad Litem (famotidine)) arformoterol 15 mcg/2 mL solution 2 ml inhalation BID 01/16/25 04/05/25 History for nebulization (Brovana) oxybutynin chloride 5 mg 5 mg PO DAILY 01/16/25 04/05/25 History tablet,extended release 24 hr Oxygen Home 01/30/25 04/05/25 History metformin 1,000 mg tablet 1,000 mg PO BID #180 tabs 02/26/25 04/05/25 Rx rimegepant 75 mg disintegrating 75 mg PO DAILY PRN Migraine 02/28/25 04/05/25 Rx tablet (Nurtec ODT) Headache #16 tabs doxycycline hyclate 100 mg tablet 100 mg PO BID 03/01/25 04/05/25 History magnesium oxide 400 mg (241.3 mg 400 mg PO DAILY 03/01/25 04/05/25 History magnesium) tablet potassium chloride 10 mEq 10 meq PO DAILY 03/01/25 04/05/25 History tablet,extended release testosterone 2 pump topical PM #75 grams 03/18/25 04/05/25 Rx nystatin 100,000 unit/gram topical 1 applic topical BID PRN Other 03/19/25 04/05/25 History cream quetiapine 50 mg tablet,extended 50 mg PO DAILY 03/19/25 04/05/25 History release 24 hr venlafaxine 150 mg 150 mg PO DAILY 03/19/25 04/05/25 History capsule,extended release 24 hr formoterol fumarate 20 mcg/2 mL 20 mcg (2 mL) NEB BIDR #60 vials 03/24/25 04/05/25 Rx solution for nebulization (Perforomist) levothyroxine 150 mcg tablet 150 mcg PO DAILYBB #30 tabs 03/24/25 04/05/25 Rx (Synthroid) prednisone 10 mg tablet 10 mg PO DIRECTED #30 tabs 03/24/25 04/05/25 Rx acetylcysteine 200 mg/mL (20 %) 2 ml inhalation BID PRN Chest 03/26/25 04/05/25 Rx solution congestion #100 mL cholecalciferol (vitamin D3) 50 50 mcg PO QPM #90 caps 03/26/25 04/05/25 Rx mcg (2,000 unit) capsule propranolol 120 mg capsule,24 120 mg PO HS 03/26/25 04/05/25 History hr,extended release sodium chloride 7 % for 1 inh inhalation BID #240 mL 03/26/25 04/05/25 Rx nebulization tiotropium bromide 2.5 2 puff inhalation DAILY #4 grams 03/26/25 04/05/25 Rx mcg/actuation mist for inhalation (Spiriva Respimat) hydrocortisone 10 mg tablet 10 mg PO UD #135 tabs 03/28/25 04/05/25 Rx apixaban 5 mg tablet (Eliquis) 5 mg PO Q12H #180 tabs 04/01/25 04/05/25 Rx blood-glucose sensor (FreeStyle #2 ea 04/05/25 04/05/25 Rx Rosalie 2 Plus Sensor device) prazosin 5 mg capsule 5 mg PO DAILY 04/05/25 04/05/25 History ramelteon 8 mg tablet 8 mg PO ONCE 04/05/25 04/05/25 History tirzepatide 5 mg/0.5 mL 5 mg (0.5 mL) subcut Q7D #2 mL 04/05/25 04/05/25 Rx subcutaneous pen injector venlafaxine 75 mg capsule,extended 75 mg PO DAILY 04/05/25 04/05/25 History release 24 hr Allergies Allergy/AdvReac Type Severity Reaction Status Date / Time clindamycin Allergy Intermediate SWELLING Verified 04/05/25 09:51 Iodinated Contrast Media Allergy Intermediate face/eye Verified 04/05/25 09:51 swelling Quinolones Allergy Intermediate HIVES Verified 04/05/25 09:51 tomato AdvReac Verified 04/05/25 09:51 Past Med/Surg History Problem List (Updated 04/06/25 @ 15:05 by Elliot Mendoza DO) Sepsis Lactic acidosis Pyelonephritis Urinary tract obstruction due to kidney stone Uncontrolled type 2 diabetes mellitus with hyperglycemia Suspect low glycation index meaning his A1c is typically about 2 points lower than what his average glucose would suggest. Compartment syndrome of lower extremity Ambulatory dysfunction (Acute) LPRD (laryngopharyngeal reflux disease) Arthralgia Venous stasis ulcers (Acute) Chronic venous insufficiency (Chronic) Presbyopia of both eyes Epiretinal membrane (ERM) of left eye Ocular hypertension Secondary cataract of left eye with vision obscured Combined form of senile cataract of right eye Abnormal chest CT Demyelinating disease Lumbar stenosis with neurogenic claudication Esophageal dysphagia Anxiety (Chronic) Mitral regurgitation Essential tremor Idiopathic polyneuropathy Arachnoid cyst of posterior cranial fossa Mixed hyperlipidemia Ulcerative colitis Anemia (Acute) Chronic migraine without aura or status migrainosus Current use of proton pump inhibitor Severe obesity (BMI 35.0-35.9 with comorbidity) 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 Depression Medical History Hypothyroidism COPD (chronic obstructive pulmonary disease) Hypertension Non-occlusive coronary artery disease Acute dehydration Witnessed seizure-like activity Nonepileptic episode Chronic narcotic dependence COPD with exacerbation Anti-cyclic citrullinated peptide antibody positive Restrictive lung disease Abnormal PFTs (pulmonary function tests) 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 Follows with endocrinology- Secondary adrenal insufficiency Transient alteration of awareness Elevated lactic acid level Chronic adrenal insufficiency Leukocytosis Lactic acidosis Acute asthma exacerbation Acute on chronic hypoxic respiratory failure Migraine Fall Hematoma Growth hormone deficiency Diaphoresis Acute hypoxic respiratory failure Influenza A Presence of Watchman left atrial appendage closure device Status epilepticus (09/13/24) Knee hemarthrosis, right (09/13/24) Acute on chronic anemia (09/13/24) Acute metabolic encephalopathy (09/13/24) Laceration of toe of right foot Closed fracture of right fibula with malunion Type 2 diabetes mellitus Right fibular fracture Acute on chronic respiratory failure with hypoxia and hypercapnia Shortness of breath Chronic respiratory failure with hypoxia Obesity CKD (chronic kidney disease), stage III Peripheral edema Seizure disorder Atrial fibrillation (02/15/24) Chronic low back pain Panhypopituitarism Lumbosacral radiculopathy Toxic encephalopathy Chest pain Acute dyspnea Acute CHF Hypoglycemia Syncope and collapse Reason for loop recorder No recent issues since bed bound from femur fracture in Sep 2022 per patient Internal hemorrhoids Recurrent seizures Pituitary diabetes insipidus Follows with endocrinology- on DDAVP Spondylolysis, lumbar region Right lumbar radiculopathy HTN (hypertension) Bipolar disorder Adrenal insufficiency Pituitary adenoma Diabetes Bleeding (02/16/24) Acute blood loss anemia (02/19/24) Hyperactive gag reflex BRCA gene positive tested positive in Aug 2023 [place] > reason for up coming EGD Family history of BRCA gene mutation PTSD (post-traumatic stress disorder) Epidural lipomatosis Chronic left sacroiliac pain Benzodiazepine overdose none since Nov 2022 Presence of cardiac device Loop recorder > last checked fall 2022 Hx of fracture of foot Sep 2022- right > cast since removed > still gets painful Fracture of fibula, right, closed Cerebral concussion May 2023 during seizure > no further issues Orthostatic hypotension Pseudoseizures Sensorineural hearing loss of both ears Rectal bleeding on occasion History of COVID-19 10/2021 - fatigue; resolved. Mitral valve regurgitation follows with Dr. Jacqueline Rubio Panhypopituitarism Lower extremity edema Elevated LFTs Bilateral hand pain Pituitary neoplasm Dx'ed in 2001- s/p surgical resection and XRT Repeat surgery in 2018 secondary to tumor regrowth at [facility] Kidney stones HX Prostate mass benign Bladder mass benign Obstructive sleep apnea of adult cpap > non compliant per pt Surgical History S/P TURP (status post transurethral resection of prostate) History of [place] [facility] [place] History of cardiac cath 07/2021 - no stents S/P epidural steroid injection History of lithotripsy Status post right foot surgery replaced 5th metatarsal--hardware in place History of bladder surgery remove mass History of prostate surgery remove mass History of colonoscopy History of esophagogastroduodenoscopy (EGD) History of tooth extraction History of wisdom tooth extraction History of brain surgery x2---2004 @ [facility] [place], 2018 @ [facility]--for brain tumors > caused epilepsy Family History Grandmother (Paternal) Family history of diabetes mellitus Aunt Family history of diabetes mellitus Uncle Family history of diabetes mellitus Father Prostate cancer Heart disease Osteoarthritis Mother Cardiac disorder Grandmother (Maternal) Myocardial infarction Other Asthma Cancer Hypertension No family history of adverse response to anesthesia No family history of bleeding disorder Stroke Denies family history of Ovarian cancer Breast cancer Colorectal cancer Social History Smoking Status: Never smoker Second Hand Exposure: No; Do You Dip or Chew Tobacco: Yes; Hx Alcohol Use: No Hx Substance Use: No Preferred Language: [place] Communication Ability: Effective Communication Ability Comment: Unable to obtain due to patient condition. Visual Impairment: Limited Hearing Ability: Normal Director Of Safety Required: No Beliefs That Will Affect Care: None marital status: Single Current Living Situation: Spouse Current Living Situation Comment: and daughter in [place] current occupational status: disabled How many Children do You have: 3 How many Children do You have Comment: able to assist with care if needed Feels Safe at Home: Yes Childhood Exposure to Second-Hand Smoke: Yes (parents smoked) Diet: regular Diet Comment: going to be starting low carb/low calorie diet. caffeine: No (1/2 20 oz bottle of mountain dew. ) during the past year weight has: increased > 10 lbs Physical Activity Frequency: Daily Physical Activity Frequency Comment: walking, 1.5 miles daily. Seatbelt Use: always Do you think of yourself as: straight/heterosexual Gender Identity: Male Assistive Devices: Oxygen - Continuous Physical Exam 2 Vital Signs: Vital Signs - 24 hr 04/06/25 12:40 04/06/25 12:54 04/06/25 12:55 Temperature 36.8 C Temperature Source Temporal Artery Sc an Pulse Rate 110 H 104 H 104 H Pulse Rate from Sp O2 Sensor Respiratory Rate 20 21 Respiratory Effort / Characteristics Non-Labored Respiratory Depth Normal Respiratory Patter n Regular Blood Pressure 156/88 H Blood Pressure Cecilia n 110 Blood Pressure Pos ition Sitting Pulse Oximetry 95 Oxygen Delivery Me thod Nasal Cannula Oxygen Flow Rate 4 Sepsis Recent Feve r Within 48 Hours No Sepsis New/Unexpla ined Change in Men matilde Status N/A Sepsis Action Take n by Nursing No Action Required 04/06/25 13:03 04/06/25 13:09 04/06/25 13:10 Temperature Temperature Source Pulse Rate 101 H 103 H 101 H Pulse Rate from Sp O2 Sensor 102 H Respiratory Rate 22 19 Respiratory Effort / Characteristics Respiratory Depth Respiratory Patter n Blood Pressure 146/80 H Blood Pressure Cecilia n 102 Blood Pressure Pos ition Pulse Oximetry 98 93 Oxygen Delivery Me thod Nasal Cannula Oxygen Flow Rate 4 Sepsis Recent Feve r Within 48 Hours Sepsis New/Unexpla ined Change in Men matilde Status Sepsis Action Take n by Nursing 04/06/25 13:30 04/06/25 13:42 04/06/25 13:45 Temperature Temperature Source Pulse Rate 101 H 109 H 97 H Pulse Rate from Sp O2 Sensor 101 H 103 H 98 H Respiratory Rate 22 14 23 Respiratory Effort / Characteristics Respiratory Depth Respiratory Patter n Blood Pressure 156/92 H 156/97 H Blood Pressure Cecilia n 113 116 Blood Pressure Pos ition Pulse Oximetry 99 95 99 Oxygen Delivery Me thod Oxygen Flow Rate Sepsis Recent Feve r Within 48 Hours Sepsis New/Unexpla ined Change in Men matilde Status Sepsis Action Take n by Nursing 04/06/25 14:00 04/06/25 14:00 04/06/25 14:00 Temperature Temperature Source Pulse Rate 96 H Pulse Rate from Sp O2 Sensor 96 H Respiratory Rate 20 Respiratory Effort / Characteristics Respiratory Depth Respiratory Patter n Blood Pressure 152/93 H 152/93 H Blood Pressure Cecilia n 112 112 Blood Pressure Pos ition Pulse Oximetry 98 Oxygen Delivery Me thod Oxygen Flow Rate Sepsis Recent Feve r Within 48 Hours Sepsis New/Unexpla ined Change in Men matilde Status Sepsis Action Take n by Nursing 04/06/25 14:12 04/06/25 14:30 04/06/25 14:30 Temperature Temperature Source Pulse Rate 96 H Pulse Rate from Sp O2 Sensor 96 H Respiratory Rate 23 Respiratory Effort / Characteristics Respiratory Depth Respiratory Patter n Blood Pressure 158/97 H 158/97 H Blood Pressure Cecilia n 115 115 Blood Pressure Pos ition Pulse Oximetry 98 Oxygen Delivery Me thod Oxygen Flow Rate Sepsis Recent Feve r Within 48 Hours Sepsis New/Unexpla ined Change in Men matilde Status Sepsis Action Take n by Nursing 04/06/25 14:30 04/06/25 14:30 04/06/25 14:39 Temperature Temperature Source Pulse Rate 96 H Pulse Rate from Sp O2 Sensor 96 H Respiratory Rate 21 Respiratory Effort / Characteristics Respiratory Depth Respiratory Patter n Blood Pressure 158/97 H 179/102 H Blood Pressure Cecilia n 115 135 Blood Pressure Pos ition Pulse Oximetry 98 Oxygen Delivery Me thod Oxygen Flow Rate Sepsis Recent Feve r Within 48 Hours Sepsis New/Unexpla ined Change in Men matilde Status Sepsis Action Take n by Nursing 04/06/25 14:39 04/06/25 14:45 04/06/25 14:48 Temperature Temperature Source Pulse Rate 98 H 101 H Pulse Rate from Sp O2 Sensor 101 H Respiratory Rate 20 22 Respiratory Effort / Characteristics Respiratory Depth Respiratory Patter n Blood Pressure 130/94 Blood Pressure Cecilia n 102 Blood Pressure Pos ition Pulse Oximetry 97 Oxygen Delivery Me thod Oxygen Flow Rate Sepsis Recent Feve r Within 48 Hours Sepsis New/Unexpla ined Change in Men matilde Status Sepsis Action Take n by Nursing 04/06/25 15:01 04/06/25 15:01 Temperature Temperature Source Pulse Rate Pulse Rate from Sp O2 Sensor Respiratory Rate Respiratory Effort / Characteristics Respiratory Depth Respiratory Patter n Blood Pressure 157/95 H 157/95 H Blood Pressure Cecilia n 112 112 Blood Pressure Pos ition Pulse Oximetry Oxygen Delivery Me thod Oxygen Flow Rate Sepsis Recent Feve r Within 48 Hours Sepsis New/Unexpla ined Change in Men matilde Status Sepsis Action Take n by Nursing Physical Exam: Physical Exam GENERAL: oriented to person, place, and time. appears well-developed and well- nourished. She does not appear distressed. HENT: Exam performed. -Head: Normocephalic and atraumatic. -Right Ear: External ear normal. No mastoid erythema -Left Ear: External ear normal. No mastoid erythema -Mouth/Throat: The oropharynx is clear and moist. No trismus in the jaw. No dental abscesses or uvula swelling. No oropharyngeal exudate or tonsillar abscesses. EYES: Conjunctivae and EOM are normal.Right eye exhibits no discharge. Left eye exhibits no discharge. No scleral icterus. NECK: Normal range of motion. Neck supple. No JVD present. No tracheal deviation and normal range of motion present. CV: Normal rate, regular rhythm, normal heart sounds and intact distal pulses. There is no peripheral edema. Palpable radial pulses bue. PULM/CHEST: Effort normal and breath sounds normal. No respiratory distress. No stridor. no wheezes.no rales. -Chest Wall: no tenderness to palpation ABD: The abdomen is soft. Bowel sounds are normal. no distension. No mass is present. There is no tenderness. There is no rebound, no guarding, no Moore's sign and no tenderness at McBurney's point. Rovsig negative. Left-sided CVA tenderness. MUSC/SKEL: Normal range of motion. There is no peripheral edema, tenderness or deformity. NEURO: Motor and sensation grossly intact. SKIN: Skin is warm and dry. not diaphoretic. PSYCH: normal mood and affect. Behavior is normal. Judgment and thought content normal. Course Course 1252: The patient was evaluated in room C10. A complete history and physical exam was performed Cardiac monitoring: An order was placed for continuous cardiac monitoring. The monitor shows a rate of 100 with sinus rhythm interpreted by in 1350: Vital signs stable. Patient's lactic acid 3.9. Patient treated with 30 cc/kg normal saline bolus of IV fluids based on the patient's ideal body weight. Urinalysis appears infected. Rocephin ordered for the patient. Imaging shows a 10 mm kidney stone. Discussed case with Dr. Mendoza on-call urology who states he would prefer to take the patient to the OR today to deal with this kidney stone. Patient last ate at [address] Mendoza was made aware of this. [facility]. Administered Medications Discontinued Medications Albuterol (Albut/Ipratrop 3mg/0.5mg Neb 3 Ml Vial) 3 ml NEB NOW STA; Protocol Stop: 04/06/25 14:49 Last Admin: 04/06/25 14:57 Dose: 3 ml Documented By: BALAJI Sodium Chloride (Nss) 1,000 mls @ 999 mls/hr IV .Q1H1M ONE Stop: 04/06/25 13:54 Last Admin: 04/06/25 13:33 Dose: 999 mls/hr Documented By: BALAJI Sodium Chloride (Nss) 500 mls @ 999 mls/hr IV .Q31M ONE Stop: 04/06/25 13:54 Last Admin: 04/06/25 13:33 Dose: 999 mls/hr Documented By: BALAJI Sodium Chloride (Nss) 1,000 mls @ 999 mls/hr IV .Q1H1M ONE Stop: 04/06/25 14:24 Last Admin: 04/06/25 13:33 Dose: 999 mls/hr Documented By: BALAJI Ceftriaxone Sodium (Rocephin) 2,000 mg in 50 mls @ 100 mls/hr IV NOW STA Stop: 04/06/25 14:11 Last Infusion: 04/06/25 15:10 Dose: Infused Documented By: Admin: 04/06/25 13:56 Dose: 100 mls/hr Documented By: BALAJI Methylprednisolone (Methylprednisolone 125 Mg/2 Ml Vial) 125 mg IV NOW STA Stop: 04/06/25 14:49 Last Admin: 04/06/25 14:57 Dose: 125 mg Documented By: BALAJI Medical Decision Making Laboratory Data Attestation: I reviewed the patient's lab results. 04/06/25 13:05 04/06/25 13:05 Lab Results 04/06/25 Range/Units 13:05 WBC 12.41 H (4.8-10.8) K/ul RBC 4.13 L (4.70-6.10) M/uL Hgb 12.2 L (14.0-18.0) g/dl Hct 36.8 L (42.0-52.0) % MCV 89.1 (80.0-100.0) fL MCH 29.5 (25.0-34.0) pg MCHC 33.2 (32.0-36.0) g/dL RDW Std Deviation 49.4 H (36.4-46.3) fL RDW Coeff of Yanira 15.3 H (11.5-14.5) % Plt Count 199 (130-400) K/uL MPV 8.6 L (9.4-12.4) fL Immature Gran % (Auto) 3.2 % Neut % (Auto) 61.9 % Lymph % (Auto) 25.6 % [place] % (Auto) 8.4 % Eos % (Auto) 0.3 % Baso % (Auto) 0.6 % Neut # (Auto) 7.68 H (1.40-6.50) K/uL Lymph # (Auto) 3.18 (1.20-3.40) K/uL [place] # (Auto) 1.04 H (0.11-0.59) K/uL Eos # (Auto) 0.04 (0.00-0.50) K/uL Baso # (Auto) 0.07 (0.00-0.20) K/uL Immature Gran # (Auto) 0.40 H (0.01-0.20) K/uL Absolute Nucleated RBC 0.07 (0.00-0.12) K/uL Nucleated RBC % (auto) 0.6 % PT 10.7 (9.0-12.0) Seconds INR 1.0 (0.9-1.1) APTT 21 (21-31) Seconds PTT Ratio 0.8 Sodium 147 H (136-145) mmol/L Potassium 3.5 (3.5-5.1) mmol/L Chloride 105 (98-107) mmol/L Carbon Dioxide 30 (21-32) mmol/L Anion Gap 12 H (3-11) BUN 17 (6-23) mg/dl Creatinine 0.71 (0.6-1.4) mg/dl Est Cr Clr Drug Dosing 148.5 ml/min eGFR 107.68 BUN/Creatinine Ratio 23.9 H (10-20) Glucose 113 H (70-99(Fasting)) mg/dl Lactate 3.9 H* (0.4-2.0) mmol/L Calcium 9.8 (8.6-10.3) mg/dl Total Creatine Kinase 20 L (30-223) U/L Urine Color Brown Urine Appearance Turbid A (Clear) Urine pH 6.0 (4.5-7.5) Ur Specific Zullinger >= 1.030 (1.000-1.030) Urine Protein 3+ H (Negative) Urine Glucose (UA) Negative (Negative) Urine Ketones Trace H (Negative) Urine Blood 3+ H (Negative) Urine Nitrite Negative (Negative) Urine Bilirubin 1+ H (Negative) Urine Urobilinogen Negative (Negative) Ur Leukocyte Esterase 2+ H (Negative) Urine RBC >20 H (0-2) /hpf Urine WBC 21-50 H (0-5) /hpf Ur Epithelial Cells 0-2 (0-2) /hpf Urine Bacteria 1+ H (None Seen) Urine Comment Rulo < 0.1 L (0.6-1.2) mmol/L Imaging Data Radiologist's Impression: Abdomen/Pelvis CT 04/06/25 12:[address] WITHOUT CONTRAST CT DOSE: 1550.64 mGy.cm HISTORY: Acute hematuria hematuria TECHNIQUE: Multiaxial CT images of the abdomen and pelvis were performed without contrast. A dose lowering technique was utilized adhering to the principles of ALARA. COMPARISON STUDY: 03/19/2025 FINDINGS: Partially imaged left atrial exclusion device. Mild subsegmental bibasilar atelectasis. No pneumatosis or pneumoperitoneum. The unenhanced spleen, pancreas, adrenal glands and contracted gallbladder appear unremarkable. The liver is within normal limits. Mild nonspecific bilateral perinephric stranding. 4 mm nonobstructing calculus at the interpolar left kidney. There are a few punctate nonobstructing calculi in the right kidney. 10 mm calculus in the right renal pelvis. Mild pelviectasis with urothelial thickening. No significant hydronephrosis. Decompressed bladder with mild wall thickening. Mild prostatomegaly. Atherosclerosis of the aorta without aneurysm. No lymphadenopathy. No bowel infarction or bowel wall thickening. Mild to moderate colonic fecal retention. Normal appendix. Degenerative and postoperative changes of the spine. 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 No acute fracture identified. IMPRESSION: 1. 10 mm calculus in the right renal pelvis causes mild pelviectasis with likely reactive urothelial thickening. No significant hydronephrosis. 2. Nonobstructing bilateral nephrolithiasis. 3. Incidental findings as above. ACT 112: Negative or not required by law. The above report was generated using voice recognition software. It may contain grammatical, syntax or spelling errors. Electronically signed by: Bean Tolentino M.D. 04/06/2025 1:30 PM [facility] Narrative 1252: The patient was evaluated in room C10. A complete history and physical exam was performed Cardiac monitoring: An order was placed for continuous cardiac monitoring. The monitor shows a rate of 100 with sinus rhythm interpreted by me 1350: Vital signs stable. Patient's lactic acid 3.9. Patient treated with 30 cc/kg normal saline bolus of IV fluids based on the patient's ideal body weight. Urinalysis appears infected. Rocephin ordered for the patient. Imaging shows a 10 mm kidney stone. Discussed case with Dr. Mendoza on-call urology who states he would prefer to take the patient to the OR today to deal with this kidney stone. Patient last ate at [address] Mendoza was made aware of this. [facility]ression & Plan Kidney stone, Pyelonephritis, Urinary tract obstruction due to kidney stone, Lactic acidosis Critical Care Time Critical Care Time: Yes Total Critical Care Time: 56 I have personally spent greater than 56 minutes of critical care time in the direct management of this patient. This includes bedside care, interpretation of diagnostic studies, and testing, discussion with consultants, patient, and family members, and other required patient management activities. This 56 minutes is in excess of all separately billable procedures. Discharge Plan Visit Data Chief Complaint: Hematuria Stated Complaint: HEMATURIA, PAIN ED Provider: Henry Higgins Discharge Problem: Kidney stone, Pyelonephritis, Urinary tract obstruction due to kidney stone, Lactic acidosis Patient Disposition: Admitted As Inpatient Condition: Serious Forms Stand Alone Forms: [facility], Important Visit Information Prescriptions Prescriptions: No Action clopidogrel [Plavix] 75 mg tablet 75 mg PO DAILY lithium carbonate 300 mg tablet 300 mg PO [facility] fluticasone propionate [Flonase Allergy Relief] 50 mcg/actuation spray,suspension 1 spray intranasal HS PRN (Reason: allergy symptoms) Qty: 16 0RF Rx Instructions: administer into each nostril (DME) insulin syringe-needle U-100 [BD Insulin Syringe Ultra-Fine] 1 mL 30 gauge x 1/2" syringe See Rx Instructions .Route Qty: 300 1RF Rx Instructions: use tid (DME) OneTouch Verio test strips Strip See Rx Instructions .MEDSUPPLY Qty: 150 5RF Rx Instructions: check blood sugars 4 times a day (DME) blood-glucose meter [OneTouch Verio Reflect Meter] Misc See Rx Instructions miscellaneous .MEDSUPPLY Qty: 1 0RF Rx Instructions: As directed (DME) lancets [OneTouch Delica Plus Lancet] 33 gauge misc See Rx Instructions .MEDSUPPLY Qty: 150 5RF Rx Instructions: As directed check blood sugars 4 times a day (DME) FreeStyle Rosalie 2 Sensor Kit See Rx Instructions .Route Qty: 6 3RF Rx Instructions: Change every 14 days Botox 200 unit recon soln See Rx Instructions IM .COMPLEX Qty: 1 3RF Rx Instructions: 155 UNITS IM IN THE FACE AND NECK MUSCLES EVERY 12 WEEKS PER MIGRAINE PROTOCOL rosuvastatin 20 mg tablet 20 mg PO QAM Qty: 90 2RF pantoprazole 40 mg tablet,delayed release (DR/EC) 40 mg PO BID Qty: 60 5RF (DME) pen needle, diabetic [BD Vy 2nd Gen Pen Needle] 32 gauge x 5/32" needle See Rx Instructions miscellaneous .MEDSUPPLY Qty: 100 3RF Rx Instructions: inject with a new pen needle daily lorazepam 0.5 mg tablet 0.5 mg PO DAILY PRN (Reason: Seizure Activity) levetiracetam 1,000 mg tablet 1,000 mg PO Q12H Qty: 60 6RF aspirin 81 mg tablet,delayed release (DR/EC) 81 mg PO QAM Qty: 90 3RF Norditropin FlexPro 5 mg/1.5 mL (3.3 mg/mL) pen injector 0.3 mg SQ QPM Qty: 2 5RF metoprolol succinate 25 mg tablet extended release 24 hr 25 mg PO HS Qty: 90 3RF desmopressin 0.2 mg tablet 0.4 mg PO BID Qty: 120 5RF lisinopril 40 mg tablet 40 mg PO DAILY Qty: 90 2RF divalproex 500 mg tablet,delayed release (DR/EC) 1,000 mg PO DAILY Qty: 60 6RF lacosamide 150 mg tablet 150 mg PO BID Qty: 60 5RF (DME) Oxygen Home Liters Per Minute See Rx Instructions .Route Rx Instructions: 4 L o2 via NC As directed, metformin 1,000 mg tablet 1,000 mg PO BID Qty: 180 3RF Hold Instructions: Per Dr Voss to hold as of 11/23/22 testosterone 20.25 mg/1.25 gram (1.62 %) gel in metered-dose pump 2 pump TOP PM Qty: 75 5RF Rx Instructions: apply 1 pump amount over max area of EACH upper arm and shoulder PDMP Queried ok to fill 03/17/2023 DS cholecalciferol (vitamin D3) 50 mcg (2,000 unit) capsule 50 mcg PO QPM Qty: 90 1RF hydrocortisone 10 mg tablet 10 mg PO UD Qty: 135 1RF Rx Instructions: TAKE 20mg IN THE AM AND 10mg IN THE afternoon around 2 o clock. MAY DOUBLE THE DOSE IN TIMES OF STRESS. Eliquis 5 mg tablet 5 mg PO Q12H Qty: 180 3RF (DME) FreeStyle [facility]al[facility] 2 [facility] See Rx Instructions .Route Qty: 1 0RF Rx Instructions: Check blood glucose before each meal (DME) OneTouch Verio test strips Strip See Rx Instructions .Route Rx Instructions: Test blood sugar two times daily mirtazapine [Remeron] 30 mg tablet 30 mg PO UD Rx Instructions: Take 30mg w/ 15mg tablet to equal 45mg at bedtime. albuterol sulfate [Ventolin HFA] 90 mcg/actuation HFA aerosol inhaler 2 inh inhalation Q6H PRN (Reason: shortness of breath or wheezing) Qty: 6.7 2RF budesonide 0.5 mg/2 mL suspension for nebulization 0.5 mg inhalation DAILY Qty: 60 5RF venlafaxine 75 mg capsule,extended release 24hr 75 mg PO DAILY Rx Instructions: Take with 150mg cap prazosin 5 mg capsule 5 mg PO DAILY ramelteon 8 mg tablet 8 mg PO ONCE (DME) FreeStyle Rosalie 2 Plus Sensor Device See Rx Instructions .Route Qty: 2 12RF Rx Instructions: Change every 15 days Mounjaro 5 mg/0.5 mL pen injector 5 mg subcut Q7D Qty: 2 4RF Rx Instructions: tuesday (DME) nebulizers [Compact Compressor Nebulizer] [facility] See Rx Instructions .Route Qty: 1 0RF Rx Instructions: One compact compressor nebulizer. Use as directed. Please include tubing, mouth piece and cup. ipratropium-albuterol 0.5 mg-3 mg(2.5 mg base)/3 mL solution for nebulization 3 ml inhalation QID PRN (Reason: wheezing) Qty: 90 0RF trazodone 100 mg tablet 100 mg PO HS ferrous sulfate 325 mg (65 mg iron) tablet 325 mg PO .qod famotidine [Acid Guardian Ad Litem (famotidine)] 20 mg tablet 20 mg PO DAILY 42 Days Qty: 42 3RF insulin glargine [Lantus Solostar U-100 Insulin] 100 unit/mL (3 mL) insulin pen 12 unit SUBCUT HS Hold Instructions: Has been on hold for a few weeks per pt Patient Comments: PER PT HE IS TAKING 12 UNITS -CONFIRMED ON 07/19/24 Nurtec ODT 75 mg tablet,disintegrating 75 mg PO DAILY PRN (Reason: Migraine Headache) Qty: 16 6RF doxycycline hyclate 100 mg tablet 100 mg PO BID magnesium oxide 400 mg (241.3 mg magnesium) tablet 400 mg PO DAILY potassium chloride 10 mEq tablet extended release 10 meq PO DAILY propranolol 120 mg capsule,extended release 24hr 120 mg PO HS Rx Instructions: Pt sates he thinks endocrinology ordered this for him- currently out Spiriva Respimat 2.5 mcg/actuation mist 2 puff inhalation DAILY Qty: 4 4RF sodium chloride 7 % solution for nebulization 1 inh inhalation BID Qty: 240 3RF acetylcysteine 200 mg/mL (20 %) solution 2 ml inhalation BID PRN (Reason: Chest congestion) Qty: 100 6RF duloxetine 60 mg capsule,delayed release(DR/EC) 60 mg PO UD Rx Instructions: Pt states that he takes 60mg in the morning and 30mg in the evening. Original Directions: 60mg by mouth twice daily dutasteride 0.5 mg capsule 0.5 mg PO QAM Rx Instructions: TAKE 1 CAPSULE BY MOUTH DAILY IN THE MORNING Baqsimi 3 mg/actuation spray,non-aerosol 3 mg intranasal ONCE PRN (Reason: Severe Hypoglycemia) Rx Instructions: for treatment of severe hypoglycemia, second dose may be given if patient does not respond after 15 minutes . Per caregiver, pt has never has to use this medication. bumetanide 1 mg Tablet 1 mg PO QAM Qty: 30 0RF vitamin B complex [Vitamins B Complex] Capsule 1 cap PO QAM Qty: 30 0RF hydrocodone-acetaminophen 7.5-325 mg tablet 1 tab PO Q6H oxybutynin chloride 5 mg tablet extended release 24hr 5 mg PO DAILY Rx Instructions: TAKE 1 TABLET BY MOUTH DAILY arformoterol [Brovana] 15 mcg/2 mL solution for nebulization 2 ml inhalation BID venlafaxine 150 mg capsule,extended release 24hr 150 mg PO DAILY quetiapine 50 mg tablet extended release 24 hr 50 mg PO DAILY nystatin 100,000 unit/gram cream 1 applic topical BID PRN (Reason: Other) levothyroxine [Synthroid] 150 mcg Tablet 150 mcg PO DAILYBB Qty: 30 0RF formoterol fumarate [Perforomist] 20 mcg/2 mL Solution For Nebulization 20 mcg NEB BIDR Qty: 60 0RF prednisone 10 mg tablet 10 mg PO DIRECTED Qty: 30 0RF Rx Instructions: 4 tabs for 3 days then 3 tabs for 3 days then 2 tabs for 3 days then 1 tab for 3 days aripiprazole 5 mg tablet 5 mg PO DAILY Referrals Referrals: Larry Amaral MD [Primary Care Provider] -
[2025-04-06 13:23] LABS: Basophils # (auto) 0.07 K/uL (0.00-0.20); Basophils % (auto) 0.6 %; Eosinophils # (auto) 0.04 K/uL (0.00-0.50); Eosinophils % (auto) 0.3 %; Hematocrit (blood only) 36.8 % (42.0-52.0); Hemoglobin 12.2 g/dl (14.0-18.0); Immature Granulocytes % (auto) 3.2 %; Lymphocytes # (auto) 3.18 K/uL (1.20-3.40); Lymphocytes % (auto) 25.6 %; Mean Corpuscular Hemoglobin 29.5 pg (25.0-34.0); Mean Corpuscular Hgb Conc 33.2 g/dL (32.0-36.0); Mean Corpuscular Volume 89.1 fL (80.0-100.0); Mean Platelet Volume 8.6 fL (9.4-12.4); Monocytes # (auto) 1.04 K/uL (0.11-0.59); Monocytes % (auto) 8.4 %; Neutrophils # (auto) 7.68 K/uL (1.40-6.50); Neutrophils % (auto) 61.9 %; Nucleated RBC # (auto) 0.07 K/uL (0.00-0.12); Nucleated RBC % (auto) 0.6 %; Platelet Count 199 K/uL (130-400); RDW Coefficient of Variation 15.3 % (11.5-14.5); RDW Standard Deviation 49.4 fL (36.4-46.3); Red Blood Count 4.13 M/uL (4.70-6.10); White Blood Count 12.41 K/ul (4.8-10.8)
[2025-04-06 13:32] LABS: Appearance Urine Turbid (Clear); Bilirubin Urine 1+ (Negative); Blood Urine 3+ (Negative); Color Urine Brown; Glucose Urine UA Negative (Negative); Ketones Urine Trace (Negative); Nitrite Urine Negative (Negative); Protein Urine 3+ (Negative); Specific Gravity Urine >= 1.030 (1.000-1.030); Urobilinogen Urine Negative (Negative)
--- NOTE | 2025-04-06 13:32 | CT Scan Report ---
ABDOMEN AND PELVIS CT WITHOUT CONTRAST CT DOSE: 1550.64 mGy.cm HISTORY: Acute hematuria hematuria TECHNIQUE: Multiaxial CT images of the abdomen and pelvis were performed without contrast. A dose lo wering technique was utilized adhering to the principles of ALARA. COMPARISON STUDY: 03/19/2025 FINDINGS: Partially imaged left atrial exclusion device. Mild subsegmental bibasilar atelectasis. No pneumatosis or pneumoperitoneum. The unenhanced spleen, pancreas, adrenal glands and contracted gallb ladder appear unremarkable. The liver is within normal limits. Mild nonspecific bilateral perinephric stranding. 4 mm nonobstructing calculus at the interpolar left kidney. There are a few punctate nono bstructing calculi in the right kidney. 10 mm calculus in the right renal pelvis. Mild pelviectasis w ith urothelial thickening. No significant hydronephrosis. Decompressed bladder with mild wall thicken ing. Mild prostatomegaly. Atherosclerosis of the aorta without aneurysm. No lymphadenopathy. No bowel infarction or bowel wall thickening. Mild to moderate colonic fecal retention. Normal append ix. Degenerative and postoperative changes of the spine. 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 No acute fracture identified. IMPRESSION: 1. 10 mm calculus in the right renal pelvis causes mild pelviectasis with likely reactive urothelial thickening. No significant hydronephrosis. 2. Nonobstructing bilateral nephrolithiasis. 3. Incidental findings as above. ACT 112: Negative or not required by law. The above report was generated using voice recognition software. It may contain grammatical, syntax o r spelling errors. Electronically signed by: Bean Tolentino M.D. 04/06/2025 1:30 PM
[2025-04-06] MEDS: SODIUM CHLORIDE 0.9% 1,000 ML IV ONE ×2 (13:33)
[2025-04-06] MEDS: SODIUM CHLORIDE 0.9% 500 ML IV ONE (13:33)
[2025-04-06 13:35] LABS: Leukocyte Esterase Urine 2+ (Negative)
[2025-04-06 13:36] LABS: Bacteria Urine 1+ (None Seen); Epithelial Cell Urine 0-2 /hpf (0-2); RBC Urine >20 /hpf (0-2); WBC Urine 21-50 /hpf (0-5)
[2025-04-06 13:40] LABS: BUN Creatinine Ratio 23.9 (10-20); Calcium 9.8 mg/dl (8.6-10.3); Creatinine Clr Calc Pharmacy 148.5 ml/min; Potassium 3.5 mmol/L (3.5-5.1)
[2025-04-06] MEDS: cefTRIAXone SODIUM 2,000 MG/50 ML BAG IV STA (13:56)
[2025-04-06 14:00] LABS: Partial Thromboplastin Ratio 0.8; Partial Thromboplastin Time 21 Seconds (21-31); Prothrombin Time 10.7 Seconds (9.0-12.0)
[2025-04-06] MEDS ORDERED: PROPOFOL IV EMULSION 10 MG/ML 20 ML VIAL IV ONE ×4 (14:27→14:51)
--- NOTE | 2025-04-06 14:31 | Anesthesiology Consultation ---
Date of Service April 06, 2025 Assessment & Plan Chart Review Chart Review: Acceptable Risk for Surgery Consults Requested none ASA ASA4 Proposed Anesthesia Anesthesia Type: General Risk / Benefits Reviewed With: PT / POA / Parent / Guardian, Accepts Plan and Informed Consent Obtained Additional Comments: DuoNeb and IV stress dose steroids prior to the OR. Will utilize additional benzodiazepines to minimize seizure risk. Patient advised on risks benefits expectations and agrees to proceed. History Surgery Operation Date: 04/06/25 15:30 Proposed Procedures p Cystoscopy Retrograde(Right) - Elliot Mendoza DO Height/Weight Height: 5 ft 10 in Weight: 116.4 kg Allergies Allergy/AdvReac Type Severity Reaction Status Date / Time clindamycin Allergy Intermediate SWELLING Verified 04/05/25 09:51 Iodinated Contrast Media Allergy Intermediate face/eye Verified 04/05/25 09:51 swelling Quinolones Allergy Intermediate HIVES Verified 04/05/25 09:51 tomato AdvReac Verified 04/05/25 09:51 Medications Home Medications Medication Instructions Recorded Confirmed Last Taken lithium carbonate 300 mg tablet 300 mg PO AMHS 06/04/22 04/05/25 11/19/24 mirtazapine 30 mg tablet (Remeron) 30 mg PO UD 06/23/22 04/05/25 11/18/24 blood sugar diagnostic (IndiegogoTouch 08/06/22 04/05/25 Unknown Verio test strips) fluticasone propionate 50 1 spray intranasal HS PRN allergy 03/16/23 04/05/25 Unknown mcg/actuation nasal symptoms #16 grams spray,suspension (Flonase Allergy Relief) FreeStyle Rosalie 2 [place] (flash #1 ea 05/13/23 04/05/25 Unknown glucose scanning reader) blood sugar diagnostic (Indiegogouch #150 ea 11/22/23 04/05/25 Unknown Verio test strips) blood-glucose meter ([employer]iegogoTouch #1 ea 11/22/23 04/05/25 Unknown Verio Reflect Meter) insulin syringe-needle U-100 1 mL #300 ea 11/22/23 04/05/25 Unknown 30 gauge x 1/2" (BD Insulin Syringe Ultra-Fine) lancets 33 gauge (IndiegogoTouch Delica #150 ea 11/22/23 04/05/25 Unknown Plus Lancet) albuterol sulfate 90 mcg/actuation 2 inh inhalation Q6H PRN shortness 02/24/24 04/05/25 Unknown aerosol inhaler (Ventolin HFA) of breath or wheezing #6.7 grams dutasteride 0.5 mg capsule 0.5 mg PO QAM 04/06/24 04/05/25 11/19/24 glucagon 3 mg/actuation nasal 3 mg intranasal ONCE PRN Severe 04/06/24 04/05/25 Unknown spray (Baqsimi) Hypoglycemia FreeStyle Rosalie 2 Sensor (flash #6 ea 05/02/24 04/05/25 Unknown glucose sensor) aripiprazole 5 mg tablet 5 mg PO DAILY 05/29/24 04/05/25 Unknown insulin glargine 100 unit/mL (3 12 unit subcut HS 07/19/24 04/05/25 11/18/24 mL) subcutaneous pen (Lantus Solostar U-100 Insulin) ipratropium 0.5 mg-albuterol 3 mg 3 ml inhalation QID PRN wheezing 07/31/24 04/05/25 Unknown (2.5 mg base)/3 mL nebulization #90 mL soln nebulizers (Compact Compressor #1 ea 07/31/24 04/05/25 Unknown Nebulizer) Botox 200 unit injection See Rx Instructions IM .COMPLEX #1 09/18/24 04/05/25 Unknown (onabotulinumtoxinA) ea rosuvastatin 20 mg tablet 20 mg PO QAM #90 tabs 09/19/24 04/05/25 11/19/24 pantoprazole 40 mg tablet,delayed 40 mg PO BID #60 tabs 09/21/24 04/05/25 11/19/24 release trazodone 100 mg tablet 100 mg PO HS 10/03/24 04/05/25 11/18/24 pen needle, diabetic 32 gauge x #100 ea 10/23/24 04/05/25 Unknown 5/32" (BD Vy 2nd Gen Pen Needle) bumetanide 1 mg tablet 1 mg PO QAM #30 tabs 10/26/24 04/05/25 11/19/24 vitamin B complex (Vitamins B 1 cap PO QAM #30 caps 10/26/24 04/05/25 11/19/24 Complex capsule) hydrocodone 7.5 mg-acetaminophen 1 tab PO Q6H 1204/05/25 11/19/24 325 mg tablet lorazepam 0.5 mg tablet 0.5 mg PO DAILY PRN Seizure 11/23/24 04/05/25 Unknown Activity levetiracetam 1,000 mg tablet 1,000 mg PO Q12H #60 tabs 11/26/24 04/05/25 Unknown aspirin 81 mg tablet,delayed 81 mg PO QAM #90 tabs 11/27/24 04/05/25 Unknown release duloxetine 60 mg capsule,delayed 60 mg PO UD 11/27/24 04/05/25 Unknown release ferrous sulfate 325 mg (65 mg 325 mg PO .qod 11/27/24 04/05/25 Unknown iron) tablet desmopressin 0.2 mg tablet 0.4 mg (2 x 0.2 mg) PO BID #120 11/30/24 04/05/25 Unknown tabs metoprolol succinate 25 mg 25 mg PO HS #90 tabs 11/30/24 04/05/25 Unknown tablet,extended release 24 hr somatropin 5 mg/1.5 mL (3.3 mg/mL) 0.3 mg (0.09 mL) subcut QPM #2 11/30/24 04/05/25 Unknown subcutaneous pen injector syringes (Norditropin FlexPro) clopidogrel 75 mg tablet (Plavix) 75 mg PO DAILY 12/03/24 04/05/25 Unknown budesonide 0.5 mg/2 mL suspension 0.5 mg (2 mL) inhalation DAILY #60 12/04/24 04/05/25 Unknown for nebulization mL lisinopril 40 mg tablet 40 mg PO DAILY #90 tabs 12/06/24 04/05/25 Unknown divalproex 500 mg tablet,delayed 1,000 mg (2 x 500 mg) PO DAILY #60 12/14/24 04/05/25 Unknown release tabs lacosamide 150 mg tablet 150 mg PO BID #60 tabs 12/26/24 04/05/25 Unknown famotidine 20 mg tablet (Acid 20 mg PO DAILY 6 weeks #42 tabs 01/11/25 04/05/25 Unknown Optical Mechanic Apprentice (famotidine)) arformoterol 15 mcg/2 mL solution 2 ml inhalation BID 01/16/25 04/05/25 Unknown for nebulization (Brovana) oxybutynin chloride 5 mg 5 mg PO DAILY 01/16/25 04/05/25 Unknown tablet,extended release 24 hr Oxygen Home 01/30/25 04/05/25 Unknown metformin 1,000 mg tablet 1,000 mg PO BID #180 tabs 02/26/25 04/05/25 Unknown rimegepant 75 mg disintegrating 75 mg PO DAILY PRN Migraine 02/28/25 04/05/25 Unknown tablet (Nurtec ODT) Headache #16 tabs doxycycline hyclate 100 mg tablet 100 mg PO BID 03/01/25 04/05/25 Unknown magnesium oxide 400 mg (241.3 mg 400 mg PO DAILY 03/01/25 04/05/25 Unknown magnesium) tablet potassium chloride 10 mEq 10 meq PO DAILY 03/01/25 04/05/25 Unknown tablet,extended release testosterone 2 pump topical PM #75 grams 03/18/25 04/05/25 Unknown nystatin 100,000 unit/gram topical 1 applic topical BID PRN Other 03/19/25 04/05/25 Unknown cream quetiapine 50 mg tablet,extended 50 mg PO DAILY 03/19/25 04/05/25 Unknown release 24 hr venlafaxine 150 mg 150 mg PO DAILY 03/19/25 04/05/25 Unknown capsule,extended release 24 hr formoterol fumarate 20 mcg/2 mL 20 mcg (2 mL) NEB BIDR #60 vials 03/24/25 04/05/25 Unknown solution for nebulization (Perforomist) levothyroxine 150 mcg tablet 150 mcg PO DAILYBB #30 tabs 03/24/25 04/05/25 Unknown (Synthroid) prednisone 10 mg tablet 10 mg PO DIRECTED #30 tabs 03/24/25 04/05/25 Unknown acetylcysteine 200 mg/mL (20 %) 2 ml inhalation BID PRN Chest 03/26/25 04/05/25 Unknown solution congestion #100 mL cholecalciferol (vitamin D3) 50 50 mcg PO QPM #90 caps 03/26/25 04/05/25 Unknown mcg (2,000 unit) capsule propranolol 120 mg capsule,24 120 mg PO HS 03/26/25 04/05/25 Unknown hr,extended release sodium chloride 7 % for 1 inh inhalation BID #240 mL 03/26/25 04/05/25 Unknown nebulization tiotropium bromide 2.5 2 puff inhalation DAILY #4 grams 03/26/25 04/05/25 Unknown mcg/actuation mist for inhalation (Spiriva Respimat) hydrocortisone 10 mg tablet 10 mg PO UD #135 tabs 03/28/25 04/05/25 Unknown apixaban 5 mg tablet (Eliquis) 5 mg PO Q12H #180 tabs 04/01/25 04/05/25 Unknown blood-glucose sensor (FreeStyle #2 ea 04/05/25 04/05/25 Unknown Rosalie 2 Plus Sensor device) prazosin 5 mg capsule 5 mg PO DAILY 04/05/25 04/05/25 Unknown ramelteon 8 mg tablet 8 mg PO ONCE 04/05/25 04/05/25 Unknown tirzepatide 5 mg/0.5 mL 5 mg (0.5 mL) subcut Q7D #2 mL 04/05/25 04/05/25 Unknown subcutaneous pen injector venlafaxine 75 mg capsule,extended 75 mg PO DAILY 04/05/25 04/05/25 Unknown release 24 hr NPO Date Last Intake of Fluids: 04/06/25 Time Last Intake of Fluids: 07:00 Last Intake of Fluids Comment: Water Date Last Intake of Solids: 04/05/25 Time Last Intake of Solids: 07:00 Last Intake of Solids Comment: Ronda toast Past Medical History Medical History (Updated 04/06/25 @ 14:44 by Jennifer Carreon DO) Hypothyroidism COPD (chronic obstructive pulmonary disease) Hypertension Non-occlusive coronary artery disease Acute dehydration Witnessed seizure-like activity Nonepileptic episode Chronic narcotic dependence COPD with exacerbation Anti-cyclic citrullinated peptide antibody positive Restrictive lung disease Abnormal PFTs (pulmonary function tests) 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 Follows with endocrinology- Secondary adrenal insufficiency Transient alteration of awareness Elevated lactic acid level Chronic adrenal insufficiency Leukocytosis Lactic acidosis Acute asthma exacerbation Acute on chronic hypoxic respiratory failure Migraine Fall Hematoma Growth hormone deficiency Diaphoresis Acute hypoxic respiratory failure Influenza A Presence of Watchman left atrial appendage closure device Status epilepticus (09/13/24) Knee hemarthrosis, right (09/13/24) Acute on chronic anemia (09/13/24) Acute metabolic encephalopathy (09/13/24) Laceration of toe of right foot Closed fracture of right fibula with malunion Type 2 diabetes mellitus Right fibular fracture Acute on chronic respiratory failure with hypoxia and hypercapnia Shortness of breath Chronic respiratory failure with hypoxia Obesity CKD (chronic kidney disease), stage III Peripheral edema Seizure disorder Atrial fibrillation (02/15/24) Chronic low back pain Panhypopituitarism Lumbosacral radiculopathy Toxic encephalopathy Chest pain Acute dyspnea Acute CHF Hypoglycemia Syncope and collapse Reason for loop recorder No recent issues since bed bound from femur fracture in Sep 2022 per patient Internal hemorrhoids Recurrent seizures Pituitary diabetes insipidus Follows with endocrinology- on DDAVP Spondylolysis, lumbar region Right lumbar radiculopathy HTN (hypertension) Bipolar disorder Adrenal insufficiency Pituitary adenoma Diabetes Bleeding (02/16/24) Acute blood loss anemia (02/19/24) Hyperactive gag reflex BRCA gene positive tested positive in Aug 2023 [place] > reason for up coming EGD Family history of BRCA gene mutation PTSD (post-traumatic stress disorder) Epidural lipomatosis Chronic left sacroiliac pain Benzodiazepine overdose none since Nov 2022 Presence of cardiac device Loop recorder > last checked fall 2022 Hx of fracture of foot Sep 2022- right > cast since removed > still gets painful Fracture of fibula, right, closed Cerebral concussion May 2023 during seizure > no further issues Orthostatic hypotension Pseudoseizures Sensorineural hearing loss of both ears Rectal bleeding on occasion History of COVID-19 10/2021 - fatigue; resolved. Mitral valve regurgitation follows with Dr. Jacqueline Rubio Panhypopituitarism Lower extremity edema Elevated LFTs Bilateral hand pain Pituitary neoplasm Dx'ed in 2001- s/p surgical resection and XRT Repeat surgery in 2018 secondary to tumor regrowth at [facility] Kidney stones HX Prostate mass benign Bladder mass benign Obstructive sleep apnea of adult cpap > non compliant per pt Patient reports fair control of seizures. Most recent seizure 2 weeks ago requiring bolus dosing. Has not had a seizure since then. Prior history of intubation for status epilepticus. Patient reports COPD and asthma have been under fair control but has had some shortness of breath with exertion at times. He did not use his inhalers this morning. He reports good control of his panhypopituitary is him and took all of his routine medications this a.m. Patient reports good compliance with his auto CPAP. He reports history of atrial fibrillation status post watchman and initial dosing of Eliquis this a.m. Exercise / Class Metabolic Activity II 4-5 Yardwork/Stairs/Walk up hill Past Family History Family History Grandmother (Paternal) Family history of diabetes mellitus Aunt Family history of diabetes mellitus Uncle Family history of diabetes mellitus Father Prostate cancer Heart disease Osteoarthritis Mother Cardiac disorder Grandmother (Maternal) Myocardial infarction Other Asthma Cancer Hypertension No family history of adverse response to anesthesia No family history of bleeding disorder Stroke Denies family history of Ovarian cancer Breast cancer Colorectal cancer Past Surgical History Surgical History S/P TURP (status post transurethral resection of prostate) History of lumbar fusion [facility] Jul 2022 History of cardiac cath 07/2021 - no stents S/P epidural steroid injection History of lithotripsy Status post right foot surgery replaced 5th metatarsal--hardware in place History of bladder surgery remove mass History of prostate surgery remove mass History of colonoscopy History of esophagogastroduodenoscopy (EGD) History of tooth extraction History of wisdom tooth extraction History of brain surgery x2---2004 @ [facility], 2018 @ [facility]--for brain tumors > caused epilepsy Past Anesthesia History No Hx of Anesthesia Complications and No Family Hx of Anesthesia Complications History of PONV No Hx of PONV and No Hx of Motion Sickness Social History Smoking Status: Never smoker tobacco type: smokeless tobacco Do You Dip or Chew Tobacco: Yes Hx Alcohol Use: No alcohol intake frequency: holidays/special occasions only Hx Substance Use: No substance use type: does not use Last Used Substance: Just Prior to Arrival Last Used Substance Other:: Unable to obtain due to patient condition. Physical Exam Vital Signs Last Vital Signs Temp 36.8 C 04/06/25 12:40 Pulse 97 H 04/06/25 13:45 Resp 23 04/06/25 13:45 BP 156/97 H 04/06/25 13:45 Pulse Ox 99 04/06/25 13:45 O2 Del Method Nasal Cannula 04/06/25 13:10 O2 Flow Rate 4 04/06/25 13:10 Constitutional + morbidly obese ENMT Mouth: + dental caries and + poor dentition (Multiple missing teeth. None tongue loose. ); no TMJ abnormality Thyromental Distance: > or= 3.5 Finger Breadths Mallampati Class: II Neck normal visual inspection, trachea midline and + facial hair; neck extension not limited Respiratory normal respiratory effort and + cough Auscultation: + diminished lung sounds and + wheezes Cardiovascular Rate/Rhythm: regular rate and regular rhythm Heart Sounds: no murmur Musculoskeletal Spine: normal cervical ROM Extremities: full ROM of extremities Neurologic moves all extremities Psychiatric Orientation: alert and oriented x 3 Testing Laboratory Results 04/06/25 13:05 04/06/25 13:05 PT 10.7 Seconds (9.0-12.0) 04/06/25 13:05 INR 1.0 (0.9-1.1) 04/06/25 13:05 APTT 21 Seconds (21-31) 04/06/25 13:05 Urine Color Brown 04/06/25 13:05 Urine Appearance Turbid (Clear) A 04/06/25 13:05 Urine pH 6.0 (4.5-7.5) 04/06/25 13:05 Ur Specific [place] >= 1.030 (1.000-1.030) 04/06/25 13:05 Urine Protein 3+ (Negative) H 04/06/25 13:05 Urine Glucose (UA) Negative (Negative) 04/06/25 13:05 Urine Ketones Trace (Negative) H 04/06/25 13:05 Urine Nitrite Negative (Negative) 04/06/25 13:05 Ur Leukocyte Esterase 2+ (Negative) H 04/06/25 13:05 Urine RBC >20 /hpf (0-2) H 04/06/25 13:05 Urine WBC 21-50 /hpf (0-5) H 04/06/25 13:05 Ur Epithelial Cells 0-2 /hpf (0-2) 04/06/25 13:05 Electrocardiogram Date: 03/27/25 Vent. Rate : 110 BPM Atrial Rate : 110 BPM P-R Int : 138 ms QRS Dur : 86 ms QT Int : 330 ms P-R-T Axes : 55 -20 72 degrees QTcB Int : 446 ms Sinus tachycardia Poor R wave progression, consider anterior MT vs. lead placement vs. LVH When compared with ECG of 19-Mar-2025 12:09, No significant change was found Chest X-Ray Date: 03/27/25 Findings: + atelectasis (left base) Echocardiogram Date: 10/24/24 EF: 60-65% LV Function: normal RWMA: + none Valvular Disease: + no significant valvular disease Pulmonary Function Test Date: 12/04/24 Severe restrictive lung dysfunction. Mild decrease in TLC with very severe decrease in ERV. Significant bronchodilator response with no obstruction. Air- trapping. Mild decrease in DLCO
[2025-04-06] MEDS ORDERED: LIDOCAINE 2% 2 ML VIAL/AMP(20MG/ML) INFIL ONE ×2 (14:51)
[2025-04-06] MEDS ORDERED: MIDAZOLAM HCL 1 MG/ML 2ML VIAL ONE (14:52)
[2025-04-06] MEDS ORDERED: fentaNYL citrate PF 100 MCG/2 ML VIAL ONE (14:52)
[2025-04-06] MEDS ORDERED: ONDANSETRON INJ 2 MG/ML 2 ML VIAL ONE (14:55)
[2025-04-06] MEDS: methylPREDNISolone 125 MG/2 ML VIAL IV STA (14:57)
[2025-04-06] MEDS: ALBUT/IPRATROP 3MG/0.5MG NEB 3 ML VIAL NEB STA (14:57)
[2025-04-06] MEDS ORDERED: ePHEDrine sulfate 50 MG/ML AMP IV PRN (15:03)
[2025-04-06] MEDS ORDERED: ALBUTEROL 0.083% NEBU SOLN 3 ML VIAL INH PRN (15:03)
[2025-04-06] MEDS ORDERED: ONDANSETRON INJ 2 MG/ML 2 ML VIAL IV PRN ×3 (15:03→17:21)
[2025-04-06] MEDS ORDERED: ATROPINE SULFATE 0.1 MG/ML 10ML SYR IV PRN (15:03)
[2025-04-06] MEDS ORDERED: HYDROmorphone INJ 1 MG/ML SYRINGE IV PRN (15:03)
[2025-04-06] MEDS ORDERED: POLYETHYLENE (MIRALAX) 17 GM PACK PO PRN ×2 (15:05→17:21)
--- NOTE | 2025-04-06 15:05 | Urology Consultation ---
Date of Consultation April 06, 2025 Assessment & Plan (1) Urinary tract obstruction due to kidney stone: (2) Pyelonephritis: (3) Lactic acidosis: (4) Sepsis: (5) Uncontrolled type 2 diabetes mellitus with hyperglycemia: (6) LPRD (laryngopharyngeal reflux disease): (7) Severe obesity (BMI 35.0-35.9 with comorbidity): (8) Pituitary diabetes insipidus: (9) Chronic adrenal insufficiency: (10) Pituitary hypogonadism: (11) BPH with obstruction/lower urinary tract symptoms: (12) Obstructive sleep apnea: (13) Nonepileptic episode: (14) COPD (chronic obstructive pulmonary disease): Plan Emergent consultation for possible sepsis with lactic acidosis and obstructing kidney stone. Patient found to have bilateral kidney stones. Has a large 1 cm stone in the UPJ/renal pelvis on the right side with significant perinephric stranding. Patient was found to have significant lactic acidosis. Has significant hypertension and tachycardia. Patient with possible acute illness. Patient has previously had significant issues. Has extremely complicated history with previous brain surgery has significant hormonal/pituitary issues. Is on replacement therapy for panhypopituitary is him. Patient has significant history of adrenal insufficiency. Major concern for possible development of severe poorly controlled infection with possibility of possible adrenal crisis if severe sepsis or infection develops. Patient also was having shortness of breath. Is undergoing extensive workup and assessment with the emergency department and urology was consulted due to acute findings with suspicion of sepsis and obstructing stone. Patient is well-known to urology. Previously has followed with myself. Has known history of obstructive issues in the past. Has previously had stones. Extensively reviewed with patient and family today. Discussed concerns and issues. Patient independently assessed, examined, interviewed, and evaluated. Evaluated in emergency setting secondary to possible developing sepsis Patient's vitals and labs were all reviewed. Pertinent values in the HPI and plan section. White count 12.41 creatinine 0.71 most recent PSA from the summer of last year was 1.076. Patient's lactic acid was significantly elevated at 3. Additionally patient had UA which was suspicious for possible UTI and concern for ascending infection/pyelonephritis. Imaging was reviewed interpreted by myself. Large 1 cm stone in the right renal pelvis/UPJ region. Perinephric stranding. Additionally stones on the right side. Agree with read. Vitals were reviewed. Currently afebrile. Significant tachycardia with heart rate at 101 blood pressure was elevated at 157/95. Respirations elevated at 22 with mild labored breathing. O2 sat was 97% on nasal cannula with 4 L/min. O2. Tmax was 36.8. Discussed findings extensively with patient and family. Reviewed with emergency providers as well as anesthesia for anticipated surgical intervention. Patient is undergoing assessment and likely close monitoring and observation by the medical team. Will likely need significant supportive care. Actively undergoing resuscitation due to lactic acidosis. He is also undergoing breathing treatment secondary to shortness of breath and known respiratory issues. Patient was going to be receiving a nebulizer treatment shortly after assessment. Patient's complicated medical and surgical history was reviewed and summarized above. Patient's surgical, medical, social, and family history were all reviewed with pertinent values as above. Discussed patient's current diagnosis as well as concerns and issues. Reviewed different options moving forward. Discussed potential risks and benefits as well as possible options and concerns. Reviewed potential surgical options and interventions. Discussed potential issues and concerns related to intervention. Risk and benefits were discussed extensively with patient and any available family. Discussed potential risks related to anesthesia. Discussed risks of bleeding infection and injury. Discussed options for conservative measure and maximum expulsion medical therapy and symptom controlled. Discussed ESWL. Discussed Ureteroscopy with extraction and/or laser lithotripsy. Risks and benefits were discussed. Stone free rates were also discussed as well as possibility of multiple procedures. Ureteral stents were discussed as well as post-operative issues and pain management. All questions were answered. Risks and benefits discussed at length for procedure. These include bleeding, infection, injury to surrounding tissues or organs, and risks associated with anesthesia. Patient states understanding and agrees to proceed. Will sign consent and proceed. Reviewed extensively with patient and family concern and suspicion for developing sepsis especially with patient's known history of adrenal insufficiency and the possibility of adrenal crisis. Reviewed concerns and issues. Discussed high risk concern related to major infection with obstructing stone. Reviewed need for broad-spectrum antibiotics. Agree with plan for admission and close monitoring with the medical team. Reviewed thoroughly risk and benefits of surgical procedure including possible risk related to anesthesia. Patient has been evaluated with the anesthesia team. Plan will move forward with the intervention as soon as patient completes his nebulizer treatment for his acute on chronic respiratory distress issues. Plan for urgent/emergent procedure. Concerning risk for potential major complication of life or limb if patient does develop severe sepsis with his significant chronic medical issues. Plan to move forward with cystoscopy with possible right stent placement possible stone treatment if unable to place stent due to large size of stone. History of Present Illness Attending Physician: Cleo Torres DO History of Present Illness Urgent/emergent consultation for patient with obstructing stone and significant history of severe infections. Patient presented with significant lactic acidosis. With patient's previous history of significant hormonal problems and previous issues with adrenal insufficiency concern for development of severe acute illness and possibly sepsis with possible UTI/Pyelo, discomfort, and ill feelings. Patient developed sudden onset of pain into flank going down and radiating into groin and back in waves comes and goes. Can be severe at times. Patient does have significant deconditioning due to acute illness Discussed and reviewed patient's personal medical, surgical, social, and family history for any history of issues, infections, and disease. Also, discussed patient's medical/surgery history especially related to any history of urinary issues or stone disease. Reviewed patient's previous history. Discussed previous issues with stone disease and previous major issues with severe infections. Discussed patient's findings of significant lactic acidosis with lactic acid at 3. Discussed concerns for developing sepsis. Discussed concerns related to p yelonephritis with obstructing stones. Discussed possible severe major infection issues. Patient is undergoing full workup in the emergency department with critical management for acute illness with possible sepsis and is being admitted to undergo close observation with broad-spectrum antibiotics Hospitalist will be placing admission and is undergoing observation and resuscitation with broad spectrum IV antibiotics and IV fluids. Allergies Allergy/AdvReac Type Severity Reaction Status Date / Time clindamycin Allergy Intermediate SWELLING Verified 04/05/25 09:51 Iodinated Contrast Media Allergy Intermediate face/eye Verified 04/05/25 09:51 swelling Quinolones Allergy Intermediate HIVES Verified 04/05/25 09:51 tomato AdvReac Verified 04/05/25 09:51 Home Medications Medication Instructions Recorded Confirmed Type lithium carbonate 300 mg tablet 300 mg PO AMHS 06/04/22 04/05/25 History mirtazapine 30 mg tablet (Remeron) 30 mg PO UD 06/23/22 04/05/25 History blood sugar diagnostic (OneTouch 08/06/22 04/05/25 History Verio test strips) fluticasone propionate 50 1 spray intranasal HS PRN allergy 03/16/23 04/05/25 Rx mcg/actuation nasal symptoms #16 grams spray,suspension (Flonase Allergy Relief) FreeStyle Rosalie 2 [place] (flash #1 ea 05/13/23 04/05/25 Rx glucose scanning reader) blood sugar diagnostic (OneTouch #150 ea 11/22/23 04/05/25 Rx Verio test strips) blood-glucose meter (OneTouch #1 ea 11/22/23 04/05/25 Rx Verio Reflect Meter) insulin syringe-needle U-100 1 mL #300 ea 11/22/23 04/05/25 Rx 30 gauge x 1/2" (BD Insulin Syringe Ultra-Fine) lancets 33 gauge (OneTouch Delica #150 ea 11/22/23 04/05/25 Rx Plus Lancet) albuterol sulfate 90 mcg/actuation 2 inh inhalation Q6H PRN shortness 02/24/24 04/05/25 Rx aerosol inhaler (Ventolin HFA) of breath or wheezing #6.7 grams dutasteride 0.5 mg capsule 0.5 mg PO QAM 04/06/24 04/05/25 History glucagon 3 mg/actuation nasal 3 mg intranasal ONCE PRN Severe 04/06/24 04/05/25 History spray (Baqsimi) Hypoglycemia FreeStyle Rosalie 2 Sensor (flash #6 ea 05/02/24 04/05/25 Rx glucose sensor) aripiprazole 5 mg tablet 5 mg PO DAILY 05/29/24 04/05/25 History insulin glargine 100 unit/mL (3 12 unit subcut HS 07/19/24 04/05/25 History mL) subcutaneous pen (Lantus Solostar U-100 Insulin) ipratropium 0.5 mg-albuterol 3 mg 3 ml inhalation QID PRN wheezing 07/31/24 04/05/25 Rx (2.5 mg base)/3 mL nebulization #90 mL soln nebulizers (Compact Compressor #1 ea 07/31/24 04/05/25 Rx Nebulizer) Botox 200 unit injection See Rx Instructions IM .COMPLEX #1 09/18/24 04/05/25 Rx (onabotulinumtoxinA) ea rosuvastatin 20 mg tablet 20 mg PO QAM #90 tabs 09/19/24 04/05/25 Rx pantoprazole 40 mg tablet,delayed 40 mg PO BID #60 tabs 09/21/24 04/05/25 Rx release trazodone 100 mg tablet 100 mg PO HS 10/03/24 04/05/25 History pen needle, diabetic 32 gauge x #100 ea 10/23/24 04/05/25 Rx 5/32" (BD Vy 2nd Gen Pen Needle) bumetanide 1 mg tablet 1 mg PO QAM #30 tabs 10/26/24 04/05/25 Rx vitamin B complex (Vitamins B 1 cap PO QAM #30 caps 10/26/24 04/05/25 Rx Complex capsule) hydrocodone 7.5 mg-acetaminophen 1 tab PO Q6H 11/19/24 04/05/25 History 325 mg tablet lorazepam 0.5 mg tablet 0.5 mg PO DAILY PRN Seizure 11/23/24 04/05/25 History Activity levetiracetam 1,000 mg tablet 1,000 mg PO Q12H #60 tabs 11/26/24 04/05/25 Rx aspirin 81 mg tablet,delayed 81 mg PO QAM #90 tabs 11/27/24 04/05/25 Rx release duloxetine 60 mg capsule,delayed 60 mg PO UD 11/27/24 04/05/25 History release ferrous sulfate 325 mg (65 mg 325 mg PO .qod 11/27/24 04/05/25 History iron) tablet desmopressin 0.2 mg tablet 0.4 mg (2 x 0.2 mg) PO BID #120 11/30/24 04/05/25 Rx tabs metoprolol succinate 25 mg 25 mg PO HS #90 tabs 11/30/24 04/05/25 Rx tablet,extended release 24 hr somatropin 5 mg/1.5 mL (3.3 mg/mL) 0.3 mg (0.09 mL) subcut QPM #2 11/30/24 04/05/25 Rx subcutaneous pen injector syringes (Norditropin FlexPro) clopidogrel 75 mg tablet (Plavix) 75 mg PO DAILY 12/03/24 04/05/25 History budesonide 0.5 mg/2 mL suspension 0.5 mg (2 mL) inhalation DAILY #60 12/04/24 04/05/25 Rx for nebulization mL lisinopril 40 mg tablet 40 mg PO DAILY #90 tabs 12/06/24 04/05/25 Rx divalproex 500 mg tablet,delayed 1,000 mg (2 x 500 mg) PO DAILY #60 12/14/24 04/05/25 Rx release tabs lacosamide 150 mg tablet 150 mg PO BID #60 tabs 12/26/24 04/05/25 Rx famotidine 20 mg tablet (Acid 20 mg PO DAILY 6 weeks #42 tabs 01/11/25 04/05/25 Rx Ceramic Tile Installer (famotidine)) arformoterol 15 mcg/2 mL solution 2 ml inhalation BID 01/16/25 04/05/25 History for nebulization (Brovana) oxybutynin chloride 5 mg 5 mg PO DAILY 01/16/25 04/05/25 History tablet,extended release 24 hr Oxygen Home 01/30/25 04/05/25 History metformin 1,000 mg tablet 1,000 mg PO BID #180 tabs 02/26/25 04/05/25 Rx rimegepant 75 mg disintegrating 75 mg PO DAILY PRN Migraine 02/28/25 04/05/25 Rx tablet (Nurtec ODT) Headache #16 tabs doxycycline hyclate 100 mg tablet 100 mg PO BID 03/01/25 04/05/25 History magnesium oxide 400 mg (241.3 mg 400 mg PO DAILY 03/01/25 04/05/25 History magnesium) tablet potassium chloride 10 mEq 10 meq PO DAILY 03/01/25 04/05/25 History tablet,extended release testosterone 2 pump topical PM #75 grams 03/18/25 04/05/25 Rx nystatin 100,000 unit/gram topical 1 applic topical BID PRN Other 03/19/25 04/05/25 History cream quetiapine 50 mg tablet,extended 50 mg PO DAILY 03/19/25 04/05/25 History release 24 hr venlafaxine 150 mg 150 mg PO DAILY 03/19/25 04/05/25 History capsule,extended release 24 hr formoterol fumarate 20 mcg/2 mL 20 mcg (2 mL) NEB BIDR #60 vials 03/24/25 04/05/25 Rx solution for nebulization (Perforomist) levothyroxine 150 mcg tablet 150 mcg PO DAILYBB #30 tabs 03/24/25 04/05/25 Rx (Synthroid) prednisone 10 mg tablet 10 mg PO DIRECTED #30 tabs 03/24/25 04/05/25 Rx acetylcysteine 200 mg/mL (20 %) 2 ml inhalation BID PRN Chest 03/26/25 04/05/25 Rx solution congestion #100 mL cholecalciferol (vitamin D3) 50 50 mcg PO QPM #90 caps 03/26/25 04/05/25 Rx mcg (2,000 unit) capsule propranolol 120 mg capsule,24 120 mg PO HS 03/26/25 04/05/25 History hr,extended release sodium chloride 7 % for 1 inh inhalation BID #240 mL 03/26/25 04/05/25 Rx nebulization tiotropium bromide 2.5 2 puff inhalation DAILY #4 grams 03/26/25 04/05/25 Rx mcg/actuation mist for inhalation (Spiriva Respimat) hydrocortisone 10 mg tablet 10 mg PO UD #135 tabs 03/28/25 04/05/25 Rx apixaban 5 mg tablet (Eliquis) 5 mg PO Q12H #180 tabs 04/01/25 04/05/25 Rx blood-glucose sensor (FreeStyle #2 ea 04/05/25 04/05/25 Rx Rosalie 2 Plus Sensor device) prazosin 5 mg capsule 5 mg PO DAILY 04/05/25 04/05/25 History ramelteon 8 mg tablet 8 mg PO ONCE 04/05/25 04/05/25 History tirzepatide 5 mg/0.5 mL 5 mg (0.5 mL) subcut Q7D #2 mL 04/05/25 04/05/25 Rx subcutaneous pen injector venlafaxine 75 mg capsule,extended 75 mg PO DAILY 04/05/25 04/05/25 History release 24 hr Patient History Medical History Hypothyroidism COPD (chronic obstructive pulmonary disease) Hypertension Non-occlusive coronary artery disease Acute dehydration Witnessed seizure-like activity Nonepileptic episode Chronic narcotic dependence COPD with exacerbation Anti-cyclic citrullinated peptide antibody positive Restrictive lung disease Abnormal PFTs (pulmonary function tests) 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 Follows with endocrinology- Secondary adrenal insufficiency Transient alteration of awareness Elevated lactic acid level Chronic adrenal insufficiency Leukocytosis Acute asthma exacerbation Acute on chronic hypoxic respiratory failure Migraine Fall Hematoma Growth hormone deficiency Diaphoresis Acute hypoxic respiratory failure Influenza A Presence of Watchman left atrial appendage closure device Status epilepticus (09/13/24) Knee hemarthrosis, right (09/13/24) Acute on chronic anemia (09/13/24) Acute metabolic encephalopathy (09/13/24) Laceration of toe of right foot Closed fracture of right fibula with malunion Type 2 diabetes mellitus Right fibular fracture Acute on chronic respiratory failure with hypoxia and hypercapnia Shortness of breath Chronic respiratory failure with hypoxia Obesity CKD (chronic kidney disease), stage III Peripheral edema Seizure disorder Atrial fibrillation (02/15/24) Chronic low back pain Panhypopituitarism Lumbosacral radiculopathy Toxic encephalopathy Chest pain Acute dyspnea Acute CHF Hypoglycemia Syncope and collapse Reason for loop recorder No recent issues since bed bound from femur fracture in Sep 2022 per patient Internal hemorrhoids Recurrent seizures Pituitary diabetes insipidus Follows with endocrinology- on DDAVP Spondylolysis, lumbar region Right lumbar radiculopathy HTN (hypertension) Bipolar disorder Adrenal insufficiency Pituitary adenoma Diabetes Bleeding (02/16/24) Acute blood loss anemia (02/19/24) Hyperactive gag reflex BRCA gene positive tested positive in Aug 2023 [place] > reason for up coming EGD Family history of BRCA gene mutation PTSD (post-traumatic stress disorder) Epidural lipomatosis Chronic left sacroiliac pain Benzodiazepine overdose none since Nov 2022 Presence of cardiac device Loop recorder > last checked fall 2022 Hx of fracture of foot Sep 2022- right > cast since removed > still gets painful Fracture of fibula, right, closed Cerebral concussion May 2023 during seizure > no further issues Orthostatic hypotension Pseudoseizures Sensorineural hearing loss of both ears Rectal bleeding on occasion History of COVID-19 10/2021 - fatigue; resolved. Mitral valve regurgitation follows with Dr. Phillips Vertigo Panhypopituitarism Lower extremity edema Elevated LFTs Bilateral hand pain Pituitary neoplasm Dx'ed in 2001- s/p surgical resection and XRT Repeat surgery in 2018 secondary to tumor regrowth at [facility] Kidney stones HX Prostate mass benign Bladder mass benign Obstructive sleep apnea of adult cpap > non compliant per pt Surgical History S/P TURP (status post transurethral resection of prostate) History of lumbar fusion [facility] [place] Jul 2022 History of cardiac cath 07/2021 - no stents S/P epidural steroid injection History of lithotripsy Status post right foot surgery replaced 5th metatarsal--hardware in place History of bladder surgery remove mass History of prostate surgery remove mass History of colonoscopy History of esophagogastroduodenoscopy (EGD) History of tooth extraction History of wisdom tooth extraction History of brain [place] x2[place] [facility] [place] [facility]--for brain tumors > caused epilepsy Family History Grandmother (Paternal) Family history of diabetes mellitus Aunt Family history of diabetes mellitus Uncle Family history of diabetes mellitus Father Prostate cancer Heart disease Osteoarthritis Mother Cardiac disorder Grandmother (Maternal) Myocardial infarction Other Asthma Cancer Hypertension No family history of adverse response to anesthesia No family history of bleeding disorder Stroke Denies family history of Ovarian cancer Breast cancer Colorectal cancer Social History Smoking Status: Never smoker Second Hand Exposure: No; Do You Dip or Chew Tobacco: Yes; Hx Alcohol Use: No Hx Substance Use: No Preferred Language: Tajik Communication Ability: Effective Communication Ability Comment: Unable to obtain due to patient condition. Visual Impairment: Limited Hearing Ability: Normal Cake Wrapper Required: No Beliefs That Will Affect Care: None marital status: Single Current Living Situation: Spouse Current Living Situation Comment: and daughter in [place] current occupational status: disabled How many Children do You have: 3 How many Children do You have Comment: able to assist with care if needed Feels Safe at Home: Yes Childhood Exposure to Second-Hand Smoke: Yes (parents smoked) Diet: regular Diet Comment: going to be starting low carb/low calorie diet. caffeine: No (1/2 20 oz bottle of mountain dew. ) during the past year weight has: increased > 10 lbs Physical Activity Frequency: Daily Physical Activity Frequency Comment: walking, 1.5 miles daily. Seatbelt Use: always Do you think of yourself as: straight/heterosexual Gender Identity: Male Assistive Devices: Oxygen - Continuous Review of Systems Review of Systems: All systems reviewed & are unremarkable except as noted in HPI & below Limited due to patient illness Physical Exam Physical Exam: General: Acutely ill. Suspicion for acute severe infection. Morbid obesity HEENT: Normocephalic Atraumatic. Inspection normal. Cranial Nerves 2-12 Grossly intact. Nares are clear. Neck is supple. Normal inspection of face. Normal inspection of neck. Neurologic: No deficits on inspection. Baseline for motor function and sensory. Psychologic: Anxious, no significant or severe acute delirium secondary to illness. Respiratory: Mild labored. No use of accessory muscles. No severe dyspnea. Cardiovascular: tachycardia Skin: [place] and Dry. No rashes or visible lesions. Febrile Extremities: Moving without issues. No motor deficits on inspection Lymphatics: Mild edema Abdomen: Morbid obesity mildly distended. No rebound or guarding. Mild suprapubic/flank tenderness Results & Data Vital Signs (Past 12 Hours) Vital Signs Temp Pulse Resp BP Pulse Ox O2 Del Method O2 Flow Rate 04/06/25 13:45 97 H 23 156/97 H 99 04/06/25 13:42 109 H 14 95 04/06/25 13:30 101 H 22 156/92 H 99 04/06/25 13:10 101 H 93 Nasal Cannula 4 04/06/25 13:09 103 H 19 98 04/06/25 13:03 101 H 22 146/80 H 04/06/25 12:55 104 H 04/06/25 12:54 104 H 21 04/06/25 12:40 36.8 C 110 H 20 156/88 H 95 Nasal Cannula 4 PG Care Time/CCT Total # of Minutes Spent Total Time Spent with Patient: Total time spent is greater than 50% in coordination of care (as documented) at patient's floor/unit and/or counseling patient: Coding Level of Care Code 35325 IN/OBS CONSULT LVL 5,80M Diagnoses Urinary tract obstruction due to kidney stone N20.0; N13.8 Pyelonephritis N12 Lactic acidosis E87.20 Sepsis A41.9 Uncontrolled type 2 diabetes mellitus with hyperglycemia E11.65 LPRD (laryngopharyngeal reflux disease) K21.9 Severe obesity (BMI 35.0-35.9 with comorbidity) E66.01; Z68.35 Pituitary diabetes insipidus E23.2 Chronic adrenal insufficiency E27.40 Pituitary hypogonadism E23.0 BPH with obstruction/lower urinary tract symptoms N40.1; N13.8 Obstructive sleep apnea G47.33 Nonepileptic episode R56.9 COPD (chronic obstructive pulmonary disease) J44.0 COPD type: COPD with acute lower respiratory infection (14) COPD (chronic obstructive pulmonary disease) COPD type: COPD with acute lower respiratory infection Qualified Code(s): J44.0 - Chronic obstructive pulmonary disease with (acute) lower respiratory infection
--- NOTE | 2025-04-06 15:20 | History & Physical Report ---
Date of Service April 06, 2025 Assessment & Plan (1) Urinary tract obstruction due to kidney stone: (2) Pyelonephritis: (3) Lactic acidosis: (4) Sepsis: (5) Uncontrolled type 2 diabetes mellitus with hyperglycemia: (6) LPRD (laryngopharyngeal reflux disease): (7) Severe obesity (BMI 35.0-35.9 with comorbidity): (8) Pituitary diabetes insipidus: (9) Pituitary hypogonadism: (10) BPH with obstruction/lower urinary tract symptoms: (11) Nonepileptic episode: Francois Haas is a 54 yo male with PMH of COPD on home 4L continuous O2, DMT2- insulin dependent, CHF, A-fib with watchman, HTN, venous insufficiency, idiopathic polyneuropathy, bipolar disorder, seizure disorder, chronic LBP, pituitary and adrenal insufficiency, and BPH who presents with 2 day history of bilateral flank pain and onset of hematuria this morning. Pt presented to ED with sepsis with elevated WBC, lactate of 3 and tachycardia. Likely urinary source is due to CT findings of 10mm calculus in right renal pelvis and urothelial thickening. Resuscitation of IVF was started and 2g of IV CTX were given in ED, however pt was taken to OR emergently for cystoscopy with urethral dilation and right ureteral stent placement. #Urinary tract obstruction/Pyelonephritis/Sepsis Pt presented to ED in sepsis with likely urinary source. CT showed urinary obstruction at left renal pelvis due to calculus. Sepsis resuscitation was started in ED with IVF and IV CTX. IVF was continued in OR where pt underwent cystoscopy, urethral dilation, right retrograde pyelogram, aspiration and right ureteral stent placement. - Urology consulted, following. Appreciate recommendations Maintain puentes catheter, consider removal in 2-5 days Maintain stent while right stone is treated, consider stones on left side Continue broad spectrum antibiotics and close monitoring of sepsis res uscitation - Continue IV CTX 2g q24h - Repeat lactate, follow - Urine culture pending, follow #DMT2 Last A1c was 5.8% in 01/2025 - BSG ACHS - Continue Glargine 12 units qhs - Short acting insulin on sliding scale #Hx of Seizures/pseudoseizures Pt has history of seisure like activity with illness or post anesthesia - Seizure precautions - Ativan 1mg IV PRN for acute seizure - Continue levetiracetam 1000mg BID - Continue lacosamide 150 BID #COPD Pt on continuous O2 at 4L. No respiratory distress noted - Continue supplemental O2 titrated to maintain O2 sat >88% - Continue ipratropium/albuterol QID PRN - Continue Brovana BID - Continue budesonide neb daily #CHF/Chronic A-fib s/p watchman procedure Last echo in 10/2024 reports EF of 60-65% - Will resume Apixaban 5mg BID on 04/07/25 - Resume clopidogrel and asa on 04/07/25 - Continue bumetanide 1 mg qam - Will continue to monitor as needed due resuscitation IVF Chronic conditions: HTN- Continue PO lisinopril, metoprolol GERD- Continue PO famotidine, pantoprazole [place]eronimo hypopituitarism/adrenal insufficiency- Continue desmopressin, somatropin, dutasteride, prednisone, hydrocortisone HLD- Continue PO rosuvastatin Bipolar/depression- Continue lithium, trazodone, mirtazapine, venlafaxine - [place] level ordered for AM labs Neuropathy- Continue PO duloxetine Dispo: PCU Diet: DM2/carb controlled DVT prophylaxis: Resume apixaban 5mg BID 04/07/25 History of Present Illness Chief Complaint: Hematuria, flank pain Primary Care Provider: Larry Amaral MD Pt is a 54 yo male with PMH of COPD on home 4L continuous O2, DMT2- insulin dependent, HTN, venous insufficiency, idiopathic polyneuropathy, bipolar disorder, seizure disorder, chronic LBP, pituitary and adrenal insufficiency, and BPH who presents with 2 day history of bilateral flank pain and onset of hematuria this morning. Pt denies recent illness or trauma. Pt has history of renal stone and lithotripsy 15 years ago. Pt states pain is an 8/10 at R>L flank and lower abdomen. Pt denies fever/chills, chest pain, nausea/vomiting. Pt uses 4L of oxygen at home and denies increased SOB. Pt endorses diarrhea, though cycles between constipation and diarrhea chronically. Pt also reports having a headache, though has history of chronic migraines. Allergies Allergy/AdvReac Type Severity Reaction Status Date / Time clindamycin Allergy Intermediate SWELLING Verified 04/05/25 09:51 Iodinated Contrast Media Allergy Intermediate face/eye Verified 04/05/25 09:51 swelling Quinolones Allergy Intermediate HIVES Verified 04/05/25 09:51 tomato AdvReac Verified 04/05/25 09:51 Home Medications Medication Instructions Recorded Confirmed Type lithium carbonate 300 mg tablet 300 mg PO AMHS 06/04/22 04/05/25 History mirtazapine 30 mg tablet (Remeron) 30 mg PO UD 06/23/22 04/05/25 History blood sugar diagnostic (OneTouch 08/06/22 04/05/25 History Verio test strips) fluticasone propionate 50 1 spray intranasal HS PRN allergy 03/16/23 04/05/25 Rx mcg/actuation nasal symptoms #16 grams spray,suspension (Flonase Allergy Relief) FreeStyle Rosalie 2 [place] (flash #1 ea 05/13/23 04/05/25 Rx glucose scanning reader) blood sugar diagnostic (OneTouch #150 ea 11/22/23 04/05/25 Rx Verio test strips) blood-glucose meter (SolsTouch #1 ea 11/22/23 04/05/25 Rx Verio Reflect Meter) insulin syringe-needle U-100 1 mL #300 ea 11/22/23 04/05/25 Rx 30 gauge x 1/2" (BD Insulin Syringe Ultra-Fine) lancets 33 gauge (OneTouch Delica #150 ea 11/22/23 04/05/25 Rx Plus Lancet) albuterol sulfate 90 mcg/actuation 2 inh inhalation Q6H PRN shortness 02/24/24 04/05/25 Rx aerosol inhaler (Ventolin HFA) of breath or wheezing #6.7 grams dutasteride 0.5 mg capsule 0.5 mg PO QAM 04/06/24 04/05/25 History glucagon 3 mg/actuation nasal 3 mg intranasal ONCE PRN Severe 04/06/24 04/05/25 History spray (Baqsimi) Hypoglycemia FreeStyle Rosalie 2 Sensor (flash #6 ea 05/02/24 04/05/25 Rx glucose sensor) aripiprazole 5 mg tablet 5 mg PO DAILY 05/29/24 04/05/25 History insulin glargine 100 unit/mL (3 12 unit subcut HS 07/19/24 04/05/25 History mL) subcutaneous pen (Lantus Solostar U-100 Insulin) ipratropium 0.5 mg-albuterol 3 mg 3 ml inhalation QID PRN wheezing 07/31/24 04/05/25 Rx (2.5 mg base)/3 mL nebulization #90 mL soln nebulizers (Compact Compressor #1 ea 07/31/24 04/05/25 Rx Nebulizer) Botox 200 unit injection See Rx Instructions IM .COMPLEX #1 09/18/24 04/05/25 Rx (onabotulinumtoxinA) ea rosuvastatin 20 mg tablet 20 mg PO QAM #90 tabs 09/19/24 04/05/25 Rx pantoprazole 40 mg tablet,delayed 40 mg PO BID #60 tabs 09/21/24 04/05/25 Rx release trazodone 100 mg tablet 100 mg PO HS 10/03/24 04/05/25 History pen needle, diabetic 32 gauge x #100 ea 10/23/24 04/05/25 Rx " (BD Vy 2nd Gen Pen Needle) bumetanide 1 mg tablet 1 mg PO QAM #30 tabs 10/26/24 04/05/25 Rx vitamin B complex (Vitamins B 1 cap PO QAM #30 caps 10/26/24 04/05/25 Rx Complex capsule) hydrocodone 7.5 mg-acetaminophen 1 tab PO Q6H 11/19/24 04/05/25 History 325 mg tablet lorazepam 0.5 mg tablet 0.5 mg PO DAILY PRN Seizure 11/23/24 04/05/25 History Activity levetiracetam 1,000 mg tablet 1,000 mg PO Q12H #60 tabs 11/26/24 04/05/25 Rx aspirin 81 mg tablet,delayed 81 mg PO QAM #90 tabs 11/27/24 04/05/25 Rx release duloxetine 60 mg capsule,delayed 60 mg PO UD 11/27/24 04/05/25 History release ferrous sulfate 325 mg (65 mg 325 mg PO .qod 11/27/24 04/05/25 History iron) tablet desmopressin 0.2 mg tablet 0.4 mg (2 x 0.2 mg) PO BID #120 11/30/24 04/05/25 Rx tabs metoprolol succinate 25 mg 25 mg PO HS #90 tabs 11/30/24 04/05/25 Rx tablet,extended release 24 hr somatropin 5 mg/1.5 mL (3.3 mg/mL) 0.3 mg (0.09 mL) subcut QPM #2 11/30/24 04/05/25 Rx subcutaneous pen injector syringes (Norditropin FlexPro) clopidogrel 75 mg tablet (Plavix) 75 mg PO DAILY 12/03/24 04/05/25 History budesonide 0.5 mg/2 mL suspension 0.5 mg (2 mL) inhalation DAILY #60 12/04/24 04/05/25 Rx for nebulization mL lisinopril 40 mg tablet 40 mg PO DAILY #90 tabs 12/06/24 04/05/25 Rx divalproex 500 mg tablet,delayed 1,000 mg (2 x 500 mg) PO DAILY #60 12/14/24 04/05/25 Rx release tabs lacosamide 150 mg tablet 150 mg PO BID #60 tabs 12/26/24 04/05/25 Rx famotidine 20 mg tablet (Acid 20 mg PO DAILY 6 weeks #42 tabs 01/11/25 04/05/25 Rx Chairperson Anesthesiology (famotidine)) arformoterol 15 mcg/2 mL solution 2 ml inhalation BID 01/16/25 04/05/25 History for nebulization (Brovana) oxybutynin chloride 5 mg 5 mg PO DAILY 01/16/25 04/05/25 History tablet,extended release 24 hr Oxygen Home 01/30/25 04/05/25 History metformin 1,000 mg tablet 1,000 mg PO BID #180 tabs 02/26/25 04/05/25 Rx rimegepant 75 mg disintegrating 75 mg PO DAILY PRN Migraine 02/28/25 04/05/25 Rx tablet (Nurtec ODT) Headache #16 tabs doxycycline hyclate 100 mg tablet 100 mg PO BID 03/01/25 04/05/25 History magnesium oxide 400 mg (241.3 mg 400 mg PO DAILY 03/01/25 04/05/25 History magnesium) tablet potassium chloride 10 mEq 10 meq PO DAILY 03/01/25 04/05/25 History tablet,extended release testosterone 2 pump topical PM #75 grams 03/18/25 04/05/25 Rx nystatin 100,000 unit/gram topical 1 applic topical BID PRN Other 03/19/25 04/05/25 History cream quetiapine 50 mg tablet,extended 50 mg PO DAILY 03/19/25 04/05/25 History release 24 hr venlafaxine 150 mg 150 mg PO DAILY 03/19/25 04/05/25 History capsule,extended release 24 hr formoterol fumarate 20 mcg/2 mL 20 mcg (2 mL) NEB BIDR #60 vials 03/24/25 04/05/25 Rx solution for nebulization (Perforomist) levothyroxine 150 mcg tablet 150 mcg PO DAILYBB #30 tabs 03/24/25 04/05/25 Rx (Synthroid) prednisone 10 mg tablet 10 mg PO DIRECTED #30 tabs 03/24/25 04/05/25 Rx acetylcysteine 200 mg/mL (20 %) 2 ml inhalation BID PRN Chest 03/26/25 04/05/25 Rx solution congestion #100 mL cholecalciferol (vitamin D3) 50 50 mcg PO QPM #90 caps 03/26/25 04/05/25 Rx mcg (2,000 unit) capsule propranolol 120 mg capsule,24 120 mg PO HS 03/26/25 04/05/25 History hr,extended release sodium chloride 7 % for 1 inh inhalation BID #240 mL 03/26/25 04/05/25 Rx nebulization tiotropium bromide 2.5 2 puff inhalation DAILY #4 grams 03/26/25 04/05/25 Rx mcg/actuation mist for inhalation (Spiriva Respimat) hydrocortisone 10 mg tablet 10 mg PO UD #135 tabs 03/28/25 04/05/25 Rx apixaban 5 mg tablet (Eliquis) 5 mg PO Q12H #180 tabs 04/01/25 04/05/25 Rx blood-glucose sensor (FreeStyle #2 ea 04/05/25 04/05/25 Rx Rosalie 2 Plus Sensor device) prazosin 5 mg capsule 5 mg PO DAILY 04/05/25 04/05/25 History ramelteon 8 mg tablet 8 mg PO ONCE 04/05/25 04/05/25 History tirzepatide 5 mg/0.5 mL 5 mg (0.5 mL) subcut Q7D #2 mL 04/05/25 04/05/25 Rx subcutaneous pen injector venlafaxine 75 mg capsule,extended 75 mg PO DAILY 04/05/25 04/05/25 History release 24 hr Past Med/Surg History Problem List Sepsis Lactic acidosis Pyelonephritis Urinary tract obstruction due to kidney stone Uncontrolled type 2 diabetes mellitus with hyperglycemia Suspect low glycation index meaning his A1c is typically about 2 points lower than what his average glucose would suggest. Compartment syndrome of lower extremity Ambulatory dysfunction (Acute) LPRD (laryngopharyngeal reflux disease) Arthralgia Venous stasis ulcers (Acute) Chronic venous insufficiency (Chronic) Presbyopia of both eyes Epiretinal membrane (ERM) of left eye Ocular hypertension Secondary cataract of left eye with vision obscured Combined form of senile cataract of right eye Abnormal chest CT Demyelinating disease Lumbar stenosis with neurogenic claudication Esophageal dysphagia Anxiety (Chronic) Mitral regurgitation Essential tremor Idiopathic polyneuropathy Arachnoid cyst of posterior cranial fossa Mixed hyperlipidemia Ulcerative colitis Anemia (Acute) Chronic migraine without aura or status migrainosus Current use of proton pump inhibitor Severe obesity (BMI 35.0-35.9 with comorbidity) 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 Depression Medical History Hypothyroidism COPD (chronic obstructive pulmonary disease) Hypertension Non-occlusive coronary artery disease Acute dehydration Witnessed seizure-like activity Nonepileptic episode Chronic narcotic dependence COPD with exacerbation Anti-cyclic citrullinated peptide antibody positive Restrictive lung disease Abnormal PFTs (pulmonary function tests) 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 Follows with endocrinology- Secondary adrenal insufficiency Transient alteration of awareness Elevated lactic acid level Chronic adrenal insufficiency Leukocytosis Acute asthma exacerbation Acute on chronic hypoxic respiratory failure Migraine Fall Hematoma Growth hormone deficiency Diaphoresis Acute hypoxic respiratory failure Influenza A Presence of Watchman left atrial appendage closure device Status epilepticus (09/13/24) Knee hemarthrosis, right (09/13/24) Acute on chronic anemia (09/13/24) Acute metabolic encephalopathy (09/13/24) Laceration of toe of right foot Closed fracture of right fibula with malunion Type 2 diabetes mellitus Right fibular fracture Acute on chronic respiratory failure with hypoxia and hypercapnia Shortness of breath Chronic respiratory failure with hypoxia Obesity CKD (chronic kidney disease), stage III Peripheral edema Seizure disorder Atrial fibrillation (02/15/24) Chronic low back pain Panhypopituitarism Lumbosacral radiculopathy Toxic encephalopathy Chest pain Acute dyspnea Acute CHF Hypoglycemia Syncope and collapse Reason for loop recorder No recent issues since bed bound from femur fracture in Sep 2022 per patient Internal hemorrhoids Recurrent seizures Pituitary diabetes insipidus Follows with endocrinology- on DDAVP Spondylolysis, lumbar region Right lumbar radiculopathy HTN (hypertension) Bipolar disorder Adrenal insufficiency Pituitary adenoma Diabetes Bleeding (02/16/24) Acute blood loss anemia (02/19/24) Hyperactive gag reflex BRCA gene positive tested positive in Aug 2023 [place] > reason for up coming EGD Family history of BRCA gene mutation PTSD (post-traumatic stress disorder) Epidural lipomatosis Chronic left sacroiliac pain Benzodiazepine overdose none since Nov 2022 Presence of cardiac device Loop recorder > last checked fall 2022 Hx of fracture of foot Sep 2022- right > cast since removed > still gets painful Fracture of fibula, right, closed Cerebral concussion May 2023 during seizure > no further issues Orthostatic hypotension Pseudoseizures Sensorineural hearing loss of both ears Rectal bleeding on occasion History of COVID-19 10/2021 - fatigue; resolved. Mitral valve regurgitation follows with Dr. Phillips Vertigo Panhypopituitarism Lower extremity edema Elevated LFTs Bilateral hand pain Pituitary neoplasm Dx'ed in 2001- s/p surgical resection and XRT Repeat surgery in 2018 secondary to tumor regrowth at [facility] Kidney stones HX Prostate mass benign Bladder mass benign Obstructive sleep apnea of adult cpap > non compliant per pt Surgical History S/P TURP (status post transurethral resection of prostate) History of lumbar fusion [facility] [place] Jul 2022 History of cardiac cath 07/2021 - no stents S/P epidural steroid injection History of lithotripsy Status post right foot surgery replaced 5th metatarsal--hardware in place History of bladder surgery remove mass History of prostate surgery remove mass History of colonoscopy History of esophagogastroduodenoscopy (EGD) History of tooth extraction History of wisdom tooth extraction History of brain surgery x2---2004 @ [facility] [place], 2018 @ [facility]--for brain tumors > caused epilepsy Family History Grandmother (Paternal) Family history of diabetes mellitus Aunt Family history of diabetes mellitus Uncle Family history of diabetes mellitus Father Prostate cancer Heart disease Osteoarthritis Mother Cardiac disorder Grandmother (Maternal) Myocardial infarction Other Asthma Cancer Hypertension No family history of adverse response to anesthesia No family history of bleeding disorder Stroke Denies family history of Ovarian cancer Breast cancer Colorectal cancer Social History Smoking Status: Never smoker Second Hand Exposure: No; Do You Dip or Chew Tobacco: Yes; Hx Alcohol Use: No Hx Substance Use: No Preferred Language: Albanian Communication Ability: Effective Communication Ability Comment: Unable to obtain due to patient condition. 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 caffeine: No (1/2 20 oz bottle of mountain dew. ) during the past year weight has: increased > 10 lbs Physical Activity Frequency: Daily Physical Activity Frequency Comment: walking, 1.5 miles daily. Seatbelt Use: always Do you think of yourself as: straight/heterosexual Gender Identity: Male Assistive Devices: Oxygen - Continuous Review of Systems Review of Systems: As per HPI Physical Exam Physical Exam: General: Pt laying in bed. NAD. Obesity noted HEENT: Normocephalic, Atraumatic. Trachea midline, no lymphadenopathy. Neck is supple. Normal inspection of face. Normal inspection of neck. Respiratory: Wearing NC, 4L. No increased work of breathing. CTAB Cardiovascular: RRR, tachycardic at 95 bmp, no murmurs, rubs or clicks noted. Abdomen: Soft, mildly distended. No rebound or guarding. Moderate suprapubic and bilateral flank tenderness Skin: [place] and Dry. No rashes or visible lesions. Extremities: Moving without issues. No motor deficits on inspection Neurologic: No deficits on inspection. Baseline for motor function and sensory. Results & Data Results & Data Vital Signs (Past 12 Hours) Vital Signs Temp Pulse Resp BP Pulse Ox O2 Del Method O2 Flow Rate 04/06/25 15:01 157/95 H 04/06/25 15:01 157/95 H 04/06/25 14:48 101 H 22 97 04/06/25 14:45 130/94 04/06/25 14:39 98 H 20 04/06/25 14:39 179/102 H 04/06/25 14:30 96 H 21 98 04/06/25 14:30 158/97 H 04/06/25 14:30 158/97 H 04/06/25 14:30 158/97 H 04/06/25 14:12 96 H 23 98 04/06/25 14:00 152/93 H 04/06/25 14:00 152/93 H 04/06/25 14:00 96 H 20 98 04/06/25 13:45 97 H 23 156/97 H 99 04/06/25 13:42 109 H 14 95 04/06/25 13:30 101 H 22 156/92 H 99 04/06/25 13:10 101 H 93 Nasal Cannula 4 04/06/25 13:09 103 H 19 98 04/06/25 13:03 101 H 22 146/80 H 04/06/25 12:55 104 H 04/06/25 12:54 104 H 21 04/06/25 12:40 36.8 C 110 H 20 156/88 H 95 Nasal Cannula 4 Laboratory Results Abnormal lab results 04/06/25 Range/Units 13:05 WBC 12.41 H (4.8-10.8) K/ul RBC 4.13 L (4.70-6.10) M/uL Hgb 12.2 L (14.0-18.0) g/dl Hct 36.8 L (42.0-52.0) % RDW Std Deviation 49.4 H (36.4-46.3) fL RDW Coeff of Yanira 15.3 H (11.5-14.5) % MPV 8.6 L (9.4-12.4) fL Neut # (Auto) 7.68 H (1.40-6.50) K/uL [place]ven # (Auto) 1.04 H (0.11-0.59) K/uL Immature Gran # (Auto) 0.40 H (0.01-0.20) K/uL Sodium 147 H (136-145) mmol/L Anion Gap 12 H (3-11) BUN/Creatinine Ratio 23.9 H (10-20) Glucose 113 H (70-99(Fasting)) mg/dl Lactate 3.9 H* (0.4-2.0) mmol/L Total Creatine Kinase 20 L (30-223) U/L Urine Appearance Turbid A (Clear) Urine Protein 3+ H (Negative) Urine Ketones Trace H (Negative) Urine Blood 3+ H (Negative) Urine Bilirubin 1+ H (Negative) Ur Leukocyte Esterase 2+ H (Negative) Urine RBC >20 H (0-2) /hpf Urine WBC 21-50 H (0-5) /hpf Urine Bacteria 1+ H (None Seen) [place] < 0.1 L (0.6-1.2) mmol/L Diagnostic Findings Abdomen/Pelvis CT 04/06/25 12:[address] WITHOUT CONTRAST CT DOSE: 1550.64 mGy.cm HISTORY: Acute hematuria hematuria TECHNIQUE: Multiaxial CT images of the abdomen and pelvis were performed without contrast. A dose lowering technique was utilized adhering to the principles of ALARA. COMPARISON STUDY: 03/19/2025 FINDINGS: Partially imaged left atrial exclusion device. Mild subsegmental bibasilar atelectasis. No pneumatosis or pneumoperitoneum. The unenhanced splee n, pancreas, adrenal glands and contracted gallbladder appear unremarkable. The liver is within normal limits. Mild nonspecific bilateral perinephric stranding. 4 mm nonobstructing calculus at the interpolar left kidney. There are a few punctate nonobstructing calculi in the right kidney. 10 mm calculus in the right renal pelvis. Mild pelviectasis with urothelial thickening. No significant hydronephrosis. Decompressed bladder with mild wall thickening. Mild prostatomegaly. Atherosclerosis of the aorta without aneurysm. No lymphadenopathy. No bowel infarction or bowel wall thickening. Mild to moderate colonic fecal retention. Normal appendix. Degenerative and postoperative changes of the spine. 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 No acute fracture identified. IMPRESSION: 1. 10 mm calculus in the right renal pelvis causes mild pelviectasis with likely reactive urothelial thickening. No significant hydronephrosis. 2. Nonobstructing bilateral nephrolithiasis. 3. Incidental findings as above. ACT 112: Negative or not required by law. The above report was generated using voice recognition software. It may contain grammatical, syntax or spelling errors. Electronically signed by: Bean Tolentino M.D. 04/06/2025 1:30 PM Supervising Physician Co-Signing Physician Notes I personally examined the patient and verified tinoco points of history and exam, discussed case, and agree with decision making and plan documented by Dr. Mosley. Patient with complex medical history on admission for hematuria. Urology urgently performed right ureteral stent placement, right stone removal, dilation of bulbar urethra. Presenting with sepsis and lactic acidosis, fluids resusc itation, on Rocephin, cultures pending, monitor closely. On seizure precautions and telemetry. Restart eliquis in am if hemodynamically stable. Resident Activity Tracking Resident Involvement: Resident Care Provided Care Provided: Adult Hospital Medicine
[2025-04-06] MEDS: DIATRIZOATE MEGLUMINE 30% 100ML VIAL INSTIL ONE (16:00)
--- NOTE | 2025-04-06 16:05 | Operative Report ---
PG Post Operative Report Pre & Post Diagnosis Operation Date: 04/06/25 15:30 Pre-Op Diagnosis: Urinary tract obstruction due to kidney stone Post-Op Diagnosis: Urinary tract obstruction due to kidney stone, urethral stricture I identified the patient and participated in the time-out.: Yes Procedure Operation Date: 04/06/25 15:30 Actual Procedures Cystoscopy with Urethral Dilation, Right Retrograde Pyelogram, Aspiration of Right Kidney, and right Ureteral Stent Placement(Right) - Elliot Mendoza DO Surgeon Elliot Mendoza, II, DO [employer] None Estimated Blood Loss 1 Findings Consistent with Post-Op Diagnosis Significant stricture of the bulbar urethra. This had to be dilated after a wire was placed. After dilation the scope was then able to advance. Bloody appearing urine from the right kidney. Sent for culture. Stent placed in good position. Specimens Urine for culture from right kidney Drains 6 Fr Multilength 20 Beninese hoh tip catheter Anesthesia Type MAC Complications none Disposition Disposition: Recovery Room Indications Patient with obstruction and possible sepsis. Risks and benefits discussed at length. Description of Procedure Patient was consented and brought back to the operating room. Patient had met SIRS criteria based on elevated lactic acid, elevated white count, and tachycardia. Patient with obstructing right UPJ stone. Patient was placed under anesthesia in the supine position and moved to the dorsal lithotomy position. Patient was prepped and draped in the regular sterile fashion. A time out was completed. A 30degree Cystoscope was placed into the urethra and advanced. At the bulbar urethra a significant stricture was encountered. A wire was placed and after the wire was placed the stricture was dilated. The scope was then advanced. There was some minor oozing from the site of dilation but no major injury or other problem. The scope was able to advance into the bladder. Once in the bladder the entire bladder was inspected. There was some mild clot in the bladder which was flushed out and the entire bladder was examined. The UO's were identified. The UO was cannulized with a catheter which was advanced to the renal pelvis. Urine was aspirated once the catheter passed the stone and this was sent for analysis. The catheter was then slightly pulled back and a retrograde pyelogram was completed. A wire was then placed. With the wire in place, a 6 Fr Double J stent was placed. It was confirmed with fluoroscopy. With the stent in place, the bladder was emptied. The scope was removed. Because of the area of stricture requiring dilation it was decided to leave the catheter. A 20 Beninese hoh tip catheter was placed and found to be in good position. The patient was cleaned, aroused from anesthesia, and transferred to the pacu in stable condition having tolerated the procedure well with no complications. I was present and participated in all aspects of the procedure. The patient will be monitored in the PACU until transferred. Plan to maintain catheter overnight. Could consider removal in the next 2 to 5 days. Will maintain stent until right stone is able to be treated. Additionally has stones on left side. Recommend broad-spectrum antibiotics and close monitoring with resuscitation as needed after procedure with obstructing stone and SIRS. I attest to the content of the Intraoperative Record and any orders documented therein. Any exceptions are noted below.
[2025-04-06] MEDS ORDERED: GLUCOSE 40% GEL 15 GM TUBE PO PRN (16:37)
[2025-04-06] MEDS ORDERED: CARBOHYDRATES FOR HYPOGLYCEMIA PO PRN ×2 (16:37→18:30)
[2025-04-06] MEDS ORDERED: GLUCOSE 10 TAB/TUBE PO PRN (16:37)
[2025-04-06] MEDS ORDERED: GLUCAGON FOR INJ 1 MG VIAL SQ PRN (16:37)
[2025-04-06] MEDS ORDERED: DEXTROSE 50% 50 ML SYRINGE IV PRN (16:37)
[2025-04-06] MEDS: fentaNYL citrate PF 100 MCG/2 ML VIAL IV PRN (16:41)
[2025-04-06] MEDS ORDERED: ALBUT/IPRATROP 3MG/0.5MG NEB 3 ML VIAL INH PRN (17:21)
[2025-04-06] MEDS ORDERED: HYDROCORTISONE 10 MG TAB PO SCH (17:21)
[2025-04-06] MEDS ORDERED: DULoxetine HCL 60 MG CAP PO SCH (17:21)
[2025-04-06] MEDS ORDERED: predniSONE 10 MG TABLET PO SCH (17:21)
[2025-04-06] MEDS ORDERED: ACETAMINOPHEN 325 MG TAB PO PRN (17:21)
[2025-04-06] MEDS ORDERED: ALBUTEROL HFA 8 GM INHALER INH PRN (17:21)
[2025-04-06] MEDS ORDERED: LORazepam 0.5 MG TAB PO PRN (17:21)
[2025-04-06] MEDS ORDERED: MELATONIN 3 MG TAB PO PRN (17:21)
[2025-04-06] MEDS: KETOROLAC TROMETHAMINE 15 MG/ML VIAL IV ONE (17:34)
--- NOTE | 2025-04-06 17:57 | Anesthesiology Progress Note ---
Date of Service April 06, 2025 no further episodes of tonic clonic activity. pt aao x 3 suspect pseudoseizure due to presentatin and immed ability to follow commands and speak to answer questions appropriately signed out of phase 1. Anesthesia Post Procedure Vital Signs Vital Signs: Temp Pulse Pulse Resp BP BP Pulse Ox 04/06/25 17:36 04/06/25 17:21 36.6 C 104 H 16 150/87 H 95 04/06/25 17:10 104 H 20 152/78 H 94 04/06/25 17:00 36.8 C 105 H 20 150/82 H 96 04/06/25 16:50 105 H 19 136/77 94 04/06/25 16:40 103 H 17 152/80 H 95 04/06/25 16:30 100 H 21 163/82 H 98 04/06/25 16:20 103 H 17 139/75 96 04/06/25 16:10 36.2 C L 99 H 21 153/90 H 95 04/06/25 15:01 157/95 H 04/06/25 15:01 157/95 H 04/06/25 14:48 101 H 22 97 04/06/25 14:45 130/94 04/06/25 14:39 98 H 20 04/06/25 14:39 179/102 H 04/06/25 14:30 96 H 21 98 04/06/25 14:30 158/97 H 04/06/25 14:30 158/97 H 04/06/25 14:30 158/97 H 04/06/25 14:12 96 H 23 98 04/06/25 14:00 152/93 H 04/06/25 14:00 152/93 H 04/06/25 14:00 96 H 20 98 04/06/25 13:45 97 H 23 156/97 H 99 04/06/25 13:42 109 H 14 95 04/06/25 13:30 101 H 22 156/92 H 99 04/06/25 13:10 101 H 93 04/06/25 13:09 103 H 19 98 04/06/25 13:03 101 H 22 146/80 H 04/06/25 12:55 104 H 04/06/25 12:54 104 H 21 04/06/25 12:40 36.8 C 110 H 20 156/88 H 95 O2 Del Method O2 Flow Rate 05/17/25 17:36 Nasal Cannula 4 04/06/25 17:21 Nasal Cannula 4 04/06/25 17:10 Nasal Cannula 4 04/06/25 17:00 Nasal Cannula 4 04/06/25 16:50 Oxymask 4 04/06/25 16:40 Oxymask 4 04/06/25 16:30 Oxymask 8 04/06/25 16:20 Oxymask 8 04/06/25 16:10 Oxymask 8 04/06/25 15:01 04/06/25 15:01 04/06/25 14:48 04/06/25 14:45 04/06/25 14:39 04/06/25 14:39 04/06/25 14:30 04/06/25 14:30 04/06/25 14:30 04/06/25 14:30 04/06/25 14:12 04/06/25 14:00 04/06/25 14:00 04/06/25 14:00 04/06/25 13:45 04/06/25 13:42 04/06/25 13:30 04/06/25 13:10 Nasal Cannula 4 04/06/25 13:09 04/06/25 13:03 04/06/25 12:55 04/06/25 12:54 04/06/25 12:40 Nasal Cannula 4 Pain Intensity Right Back: Pain Intensity: 6 Transfer of Care Handoff Completed per policy Notes Mental Status: alert / awake / arousable Patient Amnestic to Procedure: Yes Nausea / Vomiting: adequately controlled Pain: adequately controlled Airway Patency, RR, SpO2: stable & adequate BP & HR: stable & adequate Hydration State: stable & adequate Anesthetic Complications: no major complications apparent and Pt Satisfied with anesthetic care
[2025-04-06] MEDS ORDERED: Nursing to Pharmacy Communication SCH (18:45)
[2025-04-06] MEDS: NON-FORMULARY MEDICATION (Oxygen Home Liters per Minute) SCH (19:14)
[2025-04-06] MEDS: HYDROCODONE/ACETAMINOPHEN 7.5/325MG TAB PO SCH (19:32)
[2025-04-06] MEDS: SODIUM CHLORIDE 0.9% 1,000 ML IV SCH (19:33)
[2025-04-06] MEDS: FORMOTEROL 20 MCG/2 ML VIAL NEB SCH (19:43)
[2025-04-06] MEDS: SODIUM CHLOR 7% 4 ML NEB INH SCH (19:43)
[2025-04-06] MEDS: levETIRAcetam 500 MG TAB PO SCH (19:52)
[2025-04-06] MEDS: LITHIUM CARBONATE 300 MG TAB PO SCH (19:53)
[2025-04-06] MEDS: traZODone HCL 100 MG TAB PO SCH (19:53)
[2025-04-06] MEDS: PANTOprazole 40 MG TAB PO SCH (19:53)
[2025-04-06] MEDS: METOPROLOL SUCC 25MG EXT REL TAB PO SCH (19:53)
[2025-04-06] MEDS: PROPRANOLOL HCL 60 MG LA CAP PO SCH (19:53)
[2025-04-06] MEDS ORDERED: ARFORMOTEROL TART 15MCG/2ML VIAL INH SCH (21:00)
[2025-04-06] MEDS: DULoxetine HCL 30 MG CAP PO SCH (21:23)
[2025-04-06] MEDS: LACOSAMIDE 50 MG TABLET PO SCH (21:23)
[2025-04-06] MEDS: DESMOPRESSIN ACETATE 0.1 MG TAB PO SCH (21:23)
[2025-04-06] MEDS: MIRTAZAPINE TAB 15 MG TAB PO SCH (21:24)
[2025-04-06] MEDS: INSULIN ASPART PER UNIT CHARGE SC SCH (21:24)
[2025-04-06] MEDS: LANTUS PER UNIT CHARGE SC SCH (21:24)
[2025-04-07 00:51] LABS: Base Excess VBG 5.8 mEq/L; HCO3 VBG 31 mmol/L; Oxygen Saturation VBG 95.2 %; PCO2 VBG 47 mmHg (38-50); PO2 VBG 73 mmHg; pH VBG 7.43 (7.36-7.41)
--- NOTE | 2025-04-07 01:54 | XRay Report ---
EXAM: XR chest 1V portable CLINICAL HISTORY: Elevated lactate. TECHNIQUE: An X-ray image of the chest is obtained in AP projection. COMPARISON: 01/27/2025. FINDINGS: Pulmonary Parenchyma: Accentuated bilateral hilar, perihilar, and bibasilar bronchovascular markings, which may be attributed to chronic bronchitis or mild pulmonary congestion Questionable, ill-defined infiltrates at the left lung base, suggesting an underlying early infectious process Veiling of the left costophrenic region suggests underlying minimal left pleural effusion. Heart and Mediastinum: Apparent cardiomegaly, which may be projectional. Unfolded aorta Soft Tissues: Soft tissues overlying the chest wall are unremarkable. IMPRESSION: 1. Accentuated bilateral hilar, perihilar, and bibasilar bronchovascular markings, which may be attributed to chronic bronchitis or mild pulmonary congestion. Mild progression since the last study. 2. Questionable ill defined infiltrates at the left lung base suggest the possibility of an underlying early infectious process. Mild progression since the last study. Please correlate clinically 3. Veiling of the left costophrenic region suggests underlying minimal left pleural effusion. Stable. 4. Apparent cardiomegaly, which may be projectional. Electronically signed by Ren Madrid 04-07-2025 01:53 AM
[2025-04-07] MEDS: LEVOTHYROXINE SODIUM 150 MCG TABLET PO SCH (05:37)
[2025-04-07 06:09] LABS: Basophils # (auto) 0.04 K/uL (0.00-0.20); Basophils % (auto) 0.3 %; Hematocrit (blood only) 35.4 % (42.0-52.0); Hemoglobin 11.8 g/dl (14.0-18.0); Immature Granulocytes # (auto) 0.54 K/uL (0.01-0.20); Immature Granulocytes % (auto) 3.7 %; Lymphocytes # (auto) 1.22 K/uL (1.20-3.40); Lymphocytes % (auto) 8.4 %; Mean Corpuscular Hemoglobin 29.3 pg (25.0-34.0); Mean Corpuscular Hgb Conc 33.3 g/dL (32.0-36.0); Mean Corpuscular Volume 87.8 fL (80.0-100.0); Mean Platelet Volume 8.5 fL (9.4-12.4); Monocytes # (auto) 0.77 K/uL (0.11-0.59); Monocytes % (auto) 5.3 %; Neutrophils # (auto) 11.97 K/uL (1.40-6.50); Neutrophils % (auto) 82.3 %; Nucleated RBC # (auto) 0.03 K/uL (0.00-0.12); Nucleated RBC % (auto) 0.2 %; Platelet Count 180 K/uL (130-400); RDW Coefficient of Variation 15.1 % (11.5-14.5); RDW Standard Deviation 47.7 fL (36.4-46.3); Red Blood Count 4.03 M/uL (4.70-6.10); White Blood Count 14.54 K/ul (4.8-10.8)
[2025-04-07 06:58] LABS: Albumin Level 3.7 gm/dl (3.4-5.0); Bilirubin,Total 0.3 mg/dl (0.2-1.0); Calcium 9.2 mg/dl (8.6-10.3); Potassium 3.9 mmol/L (3.5-5.1)
[2025-04-07 07:04] LABS: Albumin Globulin Ratio 2.2 (0.9-2); BUN Creatinine Ratio 23.9 (10-20); Creatinine Clr Calc Pharmacy 161.2 ml/min; Globulin 1.7 gm/dl (2.5-4.0); Total Protein 5.4 gm/dl (6.0-8.3)
[2025-04-07] MEDS: BUDESONIDE 0.5 MG/2 ML VIAL (PULMICORT) INH SCH (07:11)
--- NOTE | 2025-04-07 07:21 | Fluoroscopy Report ---
FL retrograde includes kub CLINICAL HISTORY: cysto COMPARISON STUDY: CT abdomen and pelvis of same day FLUOROSCOPY TIME: 31.4 seconds FLUOROSCOPY IMAGES: 4 EXPOSURE DOSE: 18.37 mGy FINDINGS: Mild dilation of the right renal pelvis. Status post placement of a right ureteral stent wh ich appears to be in satisfactory positioning. IMPRESSION: Fluoroscopic assistance as above. ACT 112: Negative or not required by law. Electronically signed by: Bean Tolentino M.D. 04/07/2025 7:20 AM
[2025-04-07] MEDS: PRAZOSIN HCL 1 MG CAP PO SCH (07:51)
[2025-04-07] MEDS: MAGNESIUM OXIDE 400 MG TAB PO SCH (07:53)
[2025-04-07] MEDS: lisinopril 40 MG TAB PO SCH (07:53)
[2025-04-07] MEDS: VENLAFAXINE HCL XR 75 MG CAPXR PO SCH (07:54)
[2025-04-07] MEDS: DIVALPROEX DELAY RELEASE 500 MG TAB PO SCH (07:55)
[2025-04-07] MEDS: QUEtiapine FUMARATE 50 MG TABCR PO SCH (07:56)
[2025-04-07] MEDS: HYDROCORTISONE 10 MG TAB PO SCH ×2 (07:56→13:21)
[2025-04-07] MEDS: OXYBUTYNIN CHLORIDE XL 5 MG TABCR PO SCH (07:56)
[2025-04-07] MEDS: ASPIRIN 81 MG ECTAB PO SCH (07:56)
[2025-04-07] MEDS: BUMETANIDE 1 MG TAB PO SCH (07:57)
[2025-04-07] MEDS: ARIPiprazole 5 MG TAB PO SCH (07:57)
[2025-04-07] MEDS: CLOPIDOGREL BISULFATE 75 MG TAB PO SCH (07:58)
[2025-04-07] MEDS: ROSUVASTATIN CALCIUM 20 MG TAB PO SCH (07:58)
[2025-04-07] MEDS: FINASTERIDE 5 MG TAB PO SCH (07:59)
[2025-04-07] MEDS: DULoxetine HCL 60 MG CAP PO SCH (07:59)
[2025-04-07] MEDS: UMECLIDINIUM BROMIDE 62.5MCG/BLISTER 7 PUFFS/INHALER INH SCH (08:00)
[2025-04-07] MEDS: VENLAFAXINE HCL XR 150 MG CAPXR PO SCH (08:02)
[2025-04-07] MEDS: FAMOTIDINE 20 MG TAB PO SCH (08:08)
[2025-04-07] MEDS: POTASSIUM CHLORIDE 10 MEQ TABCR PO SCH (08:09)
[2025-04-07] MEDS: CEFEPIME 2000MG 2,000 MG/20 ML SYR IV SCH (09:16)
--- NOTE | 2025-04-07 10:30 | Urology Progress Note ---
Date of Service April 07, 2025 Assessment & Plan (1) Urinary tract obstruction due to kidney stone: (2) Pyelonephritis: (3) Lactic acidosis: (4) COPD (chronic obstructive pulmonary disease): (5) Chronic adrenal insufficiency: (6) Syncope and collapse: (7) Pituitary adenoma: (8) Panhypopituitarism: (9) Kidney stones: (10) Pituitary neoplasm: Plan Postop day 1 status post right stent placement for obstructing 1 cm UPJ/renal pelvis stone. Patient also has undergone cystoscopy with dilation of urethra secondary to bulbar urethral stricture. Patient has stent on right side. Additionally has catheter in place. Very mild hematuria this morning with the catheter. Urine appeared to be light pink. No major clots. Patient not having severe or significant pain. Does have history of significant adrenal insufficiency and potential adrenal crisis. Had significant lactic acidosis and concern for SIRS versus sepsis. Patient also has history of seizure-like activity. Did have some issues after anesthesia. He has previously had issues with this afterwards. Has been monitored closely by the medicine team. Anesthesia has also been following. No major increase in symptoms or bother. Patient is currently resting comfortably. Did discuss urine culture which was taken from the right kidney yesterday. Will likely take 48 hours for full results. May need to wait until full results are available before able to discharge as likely will need full course of an tibiotics for potential infection. Will recommend continued IV antibiotics until able to de-escalate with culture results. Patient otherwise has been improving and still having some hypertensive issues. Patient also has chronic respiratory issues. Is currently on 4 L nasal cannula for oxygen. Will plan to observe for now. Will likely need treatment of stone in the coming weeks/months depending on results of culture. Will likely need to coordinate with the patient's known severe chronic medical issues for treatment and may need to consider treatment while inpatient in order to safely move forward with intervention. Admission and Anticipated Discharge Date Admission Date: April 06, 2025 Subjective Postop from stent placement for obstruction issues. Patient presented with SIRS possible sepsis. Had significant lactic acidosis with tachycardia and elevated white count. Patient has extremely complicated chronic medical issue history. Has previously had brain surgery has significant panhypopituitarism. Has significant hormonal imbalance issues and other problems. Patient has also had significant episodes of adrenal crisis/insufficiency. Patient had presented with significant lactic acidosis. Has known pseudoseizure disorder. Patient found to have 1 cm obstructing stone. Had elected to move forward with stent placement. Patient was incidentally found to have bulbar urethral stricture. This was dilated and the catheter was. Patient has been tolerating well. Has noticed some frequency and urgency. Has not had severe pain in the back and flank. Does have occasional burning and irritation. No severe episodes or major changes. No new nausea or vomiting. Had tolerated anesthesia without major problems Review of Systems Review of Systems: All systems reviewed & are unremarkable except as noted in HPI & below Physical Exam Physical Exam: General: Alert in no acute distress. HEENT: Normocephalic Atraumatic. Inspection normal. Cranial Nerves 2-12 Grossly intact. Normal inspection of face. Normal inspection of neck. Psychologic: Normal affect. Respiratory: Nonlabored. No use of accessory muscles. No tachypnea or dyspnea. Cardiovascular: No tachycardia Skin: [place] and Dry. No rashes or visible lesions. Extremities/Lymphatics: No edema Abdomen: Soft Non-distended. No rebound or guarding. : Catheter in place draining light pink urine Results & Data Vital Signs (Past 12 Hours) Vital Signs Temp Pulse Pulse Resp BP Pulse Ox O2 Del Method 04/07/25 09:28 61 04/07/25 08:00 Nasal Cannula 04/07/25 07:26 36.8 C 81 18 172/79 H 98 Nasal Cannula 04/07/25 07:11 20 97 Nasal Cannula 04/07/25 02:39 36.4 C L 91 H 18 177/91 H 95 Nasal Cannula 04/06/25 23:25 36.6 C 95 H 16 159/84 H 97 Nasal Cannula 04/06/25 23:05 97 H 14 98 O2 Flow Rate 04/07/25 09:28 04/07/25 08:00 4 04/07/25 07:26 4.0 04/07/25 07:11 4 04/07/25 02:39 4 04/06/25 23:25 4 04/06/25 23:05 4 PG Care Time/CCT Total # of Minutes Spent Total Time Spent with Patient: Total time spent is greater than 50% in coordination of care (as documented) at patient's floor/unit and/or counseling patient: Coding Level of Care Code 71920 SUB INP/OBS CARE 3/50MIN Diagnoses Urinary tract obstruction due to kidney stone N20.0; N13.8 Pyelonephritis N12 Lactic acidosis E87.20 COPD (chronic obstructive pulmonary disease) J44.0 COPD type: COPD with acute lower respiratory infection Chronic adrenal insufficiency E27.40 Syncope and collapse R55 Pituitary adenoma D35.2 Panhypopituitarism E23.0 Kidney stones N20.0 Pituitary neoplasm D49.7 (4) COPD (chronic obstructive pulmonary disease) COPD type: COPD with acute lower respiratory infection Qualified Code(s): J44.0 - Chronic obstructive pulmonary disease with (acute) lower respiratory infection
[2025-04-07] MEDS ORDERED: cefTRIAXone SODIUM 2,000 MG/50 ML BAG IV SCH (14:00)
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
[2025-04-07] MEDS: APIXABAN 5 MG TABLET PO SCH (20:21)
[2025-04-07] MEDS: ACETAMINOPHEN 325 MG TAB PO PRN (20:35)
[2025-04-08 06:22] LABS: Basophils # (auto) 0.05 K/uL (0.00-0.20); Basophils % (auto) 0.4 %; Eosinophils # (auto) 0.07 K/uL (0.00-0.50); Eosinophils % (auto) 0.5 %; Hematocrit (blood only) 36.5 % (42.0-52.0); Immature Granulocytes % (auto) 3.1 %; Lymphocytes # (auto) 3.48 K/uL (1.20-3.40); Lymphocytes % (auto) 27.3 %; Mean Corpuscular Hemoglobin 29.3 pg (25.0-34.0); Mean Corpuscular Hgb Conc 32.9 g/dL (32.0-36.0); Mean Platelet Volume 8.3 fL (9.4-12.4); Monocytes # (auto) 0.87 K/uL (0.11-0.59); Monocytes % (auto) 6.8 %; Neutrophils # (auto) 7.88 K/uL (1.40-6.50); Neutrophils % (auto) 61.9 %; Nucleated RBC # (auto) 0.07 K/uL (0.00-0.12); Nucleated RBC % (auto) 0.5 %; Platelet Count 159 K/uL (130-400); RDW Coefficient of Variation 15.3 % (11.5-14.5); RDW Standard Deviation 48.9 fL (36.4-46.3); White Blood Count 12.75 K/ul (4.8-10.8)
[2025-04-08 06:47] LABS: Albumin Globulin Ratio 2.2 (0.9-2); Albumin Level 3.5 gm/dl (3.4-5.0); BUN Creatinine Ratio 23.3 (10-20); Bilirubin,Total 0.4 mg/dl (0.2-1.0); Calcium 8.8 mg/dl (8.6-10.3); Creatinine Clr Calc Pharmacy 148.8 ml/min; Globulin 1.6 gm/dl (2.5-4.0); Potassium 3.5 mmol/L (3.5-5.1); Total Protein 5.1 gm/dl (6.0-8.3)
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
[2025-04-08] MEDS: MELATONIN 3 MG TAB PO PRN (20:15)
[2025-04-09 06:52] LABS: Basophils # (auto) 0.07 K/uL (0.00-0.20); Basophils % (auto) 0.6 %; Eosinophils # (auto) 0.13 K/uL (0.00-0.50); Eosinophils % (auto) 1.1 %; Hematocrit (blood only) 38.8 % (42.0-52.0); Hemoglobin 12.6 g/dl (14.0-18.0); Immature Granulocytes # (auto) 0.35 K/uL (0.01-0.20); Immature Granulocytes % (auto) 3.1 %; Lymphocytes # (auto) 3.21 K/uL (1.20-3.40); Mean Corpuscular Hemoglobin 29.1 pg (25.0-34.0); Mean Corpuscular Hgb Conc 32.5 g/dL (32.0-36.0); Mean Corpuscular Volume 89.6 fL (80.0-100.0); Mean Platelet Volume 8.3 fL (9.4-12.4); Monocytes # (auto) 0.89 K/uL (0.11-0.59); Monocytes % (auto) 7.8 %; Neutrophils # (auto) 6.82 K/uL (1.40-6.50); Neutrophils % (auto) 59.4 %; Nucleated RBC # (auto) 0.03 K/uL (0.00-0.12); Nucleated RBC % (auto) 0.3 %; Platelet Count 141 K/uL (130-400); RDW Coefficient of Variation 15.2 % (11.5-14.5); RDW Standard Deviation 49.3 fL (36.4-46.3); Red Blood Count 4.33 M/uL (4.70-6.10); White Blood Count 11.47 K/ul (4.8-10.8)
[2025-04-09 07:15] LABS: Albumin Globulin Ratio 1.9 (0.9-2); Albumin Level 3.7 gm/dl (3.4-5.0); BUN Creatinine Ratio 19.4 (10-20); Bilirubin,Total 0.4 mg/dl (0.2-1.0); Creatinine Clr Calc Pharmacy 150.9 ml/min; Potassium 3.9 mmol/L (3.5-5.1); Total Protein 5.7 gm/dl (6.0-8.3)
[2025-04-09 10:48] VITALS: BP 106/68; PULSE 85; RESP 18; TEMP 97.7; O2SAT 97
--- NOTE | 2025-04-09 11:59 | Discharge Summary ---
Discharge Summary Date of Service April 09, 2025 Principal Dx & Hospital Course #1 = Principal Diagnosis (1) Urinary tract obstruction due to kidney stone: (2) Pyelonephritis: (3) Lactic acidosis: (4) Sepsis: (5) Uncontrolled type 2 diabetes mellitus with hyperglycemia: (6) LPRD (laryngopharyngeal reflux disease): (7) Severe obesity (BMI 35.0-35.9 with comorbidity): (8) Pituitary diabetes insipidus: (9) Pituitary hypogonadism: (10) BPH with obstruction/lower urinary tract symptoms: (11) Nonepileptic episode: Plan 54 years old male with PMH of FULL CODE @ home, obesity with BMI 38.6 (height 177.8 cm; weight 121.9 kg), presumed CORINA, chronic normocytic, normochromic anemia with baseline Hb range, 12.1 g/dL to 13.7 g/dL (12/07/2022 - 03/29/2025), chronic ambulatory dysfunction (due to rappelling 40 feet from a [email or web address] helicopter to the ground 200 times and landing on his feet 200 times on the [place] for 10 months ( War), leading to chronic lumbago, s/p insertion of 2 steel rods into the spine, and physical therapy-recommended walker not utilized by patient who is too proud and ashamed to let passers-by see him utilizing a walker), GERD on famotidine 20mg PO daily and pantoprazole 40mg PO bid, lumbar stenosis w/ claudication, dysphagia, insulin-dependent DM2 with HbA1c 6.0% (01/17/2025, 2:53am) on lantus 12 units SQ qhs and metformin 1000mg PO bid, BPH on dutasteride 0.5mg PO qam, urinary incontinence on oxybutynin 5mg PO daily, chronic venous insufficiency, allergic rhinitis on fluticasone 50ug/spray, 1 spray to each nostril qhs prn allergic rhinitis, tobacco-naive chronic hypoxic respiratory failure due to (a) 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 [place] 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 with no mask or ventilator provided to patient and to (b) daily inhalation of tar and 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 in the burning [place] of [place] for 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 that developed after spending 10 months on the burning oil [place] in [place] ( War) on prazosin 5mg PO qhs, panic attack on propanolol 120mg PO qhs, migraine headache on rimegepant ODT 75mg PO daily prn migraine headache, demyelinating disease not otherwise specified, generalized tonic-clonic seizure disorder on lacosamide 150mg PO bid, levetiracetam 1000mg PO q12, valproic acid 1000mg PO daily, and lorazepam 0.5mg PO daily prn seizure, pituitary tumor s/p resections x 2 (first resection ~19 years ago @ [facility] ([facility]); second resection ~5 years ago @ [facility]), 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 for: (a) vasopressin deficiency, treated with desmopressin 0.4mg PO bid, (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, (c) adrenal insufficiency, treated with hydrocortisone 20mg PO qam and hydrocortisone 10mg PO q2pm, (d) acquired hypothyroidism, treated with levothyroxine 150ug PO qam, (e) hypogonadism, treated with testosterone 20.25mg/1.25g (1.62% gel) 2 pumps topically qpm, who was subsequently treated for "double pneumonia" (July 2024, [facility]), who was subsequently treated for a 1 week-belated/delayed diagnosis of compartment syndrome of right lower extremity, culminating in cardiac arrest x 4 episodes (August 2024, [facility]), followed by helicopter transfer out of [facility] and to [facility] for emergent fasciotomy and IV antibiotics, during which time, patient's of 34 years left patient abruptly for a younger, healthy man "because she could not accept all of my medical problems or deal with them", who presented to [facility] on 01/16/2025 for acute increase in cough and dyspnea and was admitted to the inpatient hospitalist service @ [facility] on 01/16/2025 with the following diagnosis: 1. Acute hypoxic respiratory failure due to acute influenza A infection with no obvious infiltrate/consolidation on admission 01/16/2025 portable CXR. Patient was discharged back to his home on 01/25/2025, only to be re-admitted on 01/27/2025 with SOB/SCOTT, but no acute hypoxic respiratory failure, followed by discharge back to home on 01/29/2025. Patient was subsequently admitted to [facility] on 04/06/2025 with complaints of 2 days of bilateral flank pain and gross hematuria on the morning of 04/06/2025. Patient was subsequently admitted to [facility] Residency Service on 04/06/2025 with the following diagnoses: 1. Severe sepsis, but not septic shock, due to acute UTI, R/O gram negative jelani-associated bacteremia. 2. Acute urinary tract obstruction due to 10 cm renal calculus with no acute kidney failure given normal creatinine 0.71 mg/dL (04/06/2025, 1:05pm). The following medical issues were addressed while the patient remained in [facility] from 04/06/2025 through 04/09/2025: To address #1, patient remains afebrile with initially increasing WBC and persistently elevated lactic acid levels, as shown below: WBC 12.41, N62 L26 M8 B1 (04/06/2025, 1:05pm) WBC 14.54, N82 L 8 M5 (04/07/2025, 5:48am) Lactic acid #1 3.9 mmol/L (04/06/2025, 1:05pm) Lactic acid #2 4.8 mmol/L (04/06/2025, 5:46pm) Lactic acid #3 4.8 mmol/L (04/06/2025, 10:53pm) Lactic acid #4 4.6 mmol/L (04/07/2025, 12:39am) Lactic acid #5 3.2 mmol/L (04/07/2025, 8:31am) Lactic acid #6 4.9 mmol/L (04/07/2025, 12:14pm) Patient received ceftriaxone 2g IV x 1 dose (04/06/2025, 1:56pm) in [facility] ER. While ceftriaxone covers several gram negative aerobes, it does not cover gram negative aerobe Pseudomonas aeruginosa. Hence, I started patient on cefepime 2g IV q8 (day #1/ on 04/07/2025, 9:16am, 5:16pm). Subsequently, both WBC and lactic acid levels have declined, as shown below: WBC 12.75, N62 L27 M7 E1 (04/08/2025, 5:55am) WBC 11.47, N59 L28 M8 E1 B1 (04/09/2025, 5:56am). Lactic acid #7 1.4 mmol/L (04/08/2025, 5:55am) Lactic acid #8 2.0 mmol/L (04/09/2025, 8:37am). Patient remains afebrile and reports "I feel great. I want to go home home without the puentes catheter today. Hence, patient's puentes catheter (placed in [facility] ER on 04/06/2025, 3:00pm) was removed prior to hospital discharge home on 04/09/2025, with patient voiding urine spontaneously thereafter, and right ureteral stent (placed in [facility] OR on 04/06/2025, 2:39pm, Urologist Dr. Elliot Mendoza), remained in situ on hospital discharge home on 04/09/2025. Patient will follow up the final results of his blood culture #1 (04/07/2025, 8:35am), and blood culture #2 (04/07/2025, 8:40pm) with his PCP Dr. Larry Amaral within 5 days of hospital discharge. Patient reports that he will comply with this recommendation. In the interim, patient's [facility] [place] store [id number], [address] [place] [address] received an electronic prescription for cefdinir 300mg PO bid, #10 capsules, no refills, on 04/09/2025, prior to hospital discharge home on 04/09/2025, despite urine cultu re (04/06/2025, 1:05pm) reveals < 1,000 cfu/mL, as the clinical index of suspicion for acute UTI remains high. To address #2, patient underwent right retrograde pyelogram, aspiration of right kidney, and right ureteral stent placement (04/06/2025, 2:39pm, Urologist Dr. Elliot Mendoza). Patient maintains brisk urine output via puentes catheter on 04/07/2025. As per Urology Service, puentes catheter could be removed in 2-5 days, and hence, it was removed on 04/09/2025 prior to hospital discharge home on 04/09/2025, and patient voided urine spontaneously. Patient was advised to follow up with his Urologist Dr. Elliot Mendoza within 5 days of hospital discharge. Patient reports that he will comply with this recommendation. Other secondary medical issues include: #DMT2 Last A1c was 5.8% in 01/2025 - BSG ACHS - Continue Glargine 12 units qhs - Short acting insulin on sliding scale #Hx of Seizures/pseudoseizures Pt has history of seisure like activity with illness or post anesthesia - Seizure precautions - Ativan 1mg IV PRN for acute seizure - Continue levetiracetam 1000mg BID - Continue lacosamide 150 BID #COPD Pt on continuous O2 at 4L. No respiratory distress noted - Continue supplemental O2 titrated to maintain O2 sat >88% - Continue ipratropium/albuterol QID PRN - Continue Brovana BID - Continue budesonide neb daily #CHF/Chronic A-fib s/p watchman procedure Last echo in 10/2024 reports EF of 60-65% - Will resume Apixaban 5mg BID on 04/07/25 - Resume clopidogrel and asa on 04/07/25 - Continue bumetanide 1 mg qam - Will continue to monitor as needed due resuscitation IVF Chronic conditions: HTN- Continue PO lisinopril, metoprolol GERD- Continue PO famotidine, pantoprazole Cazares hypopituitarism/adrenal insufficiency- Continue desmopressin, somatropin, dutasteride, prednisone, hydrocortisone HLD- Continue PO rosuvastatin Bipolar/depression- Continue lithium, trazodone, mirtazapine, venlafaxine - Lutz level ordered for AM labs Neuropathy- Continue PO duloxetine Dispo: PCU Diet: DM2/carb controlled DVT prophylaxis: Resume apixaban 5mg BID 04/07/25 Admission HPI Per Admitting Provider Pt is a 54 yo male with PMH of COPD on home 4L continuous O2, DMT2- insulin dependent, HTN, venous insufficiency, idiopathic polyneuropathy, bipolar disorder, seizure disorder, chronic LBP, pituitary and adrenal insufficiency, and BPH who presents with 2 day history of bilateral flank pain and onset of hematuria this morning. Pt denies recent illness or trauma. Pt has history of renal stone and lithotripsy 15 years ago. Pt states pain is an 8/10 at R>L flank and lower abdomen. Pt denies fever/chills, chest pain, nausea/vomiting. Pt uses 4L of oxygen at home and denies increased SOB. Pt endorses diarrhea, though cy cles between constipation and diarrhea chronically. Pt also reports having a headache, though has history of chronic migraines. Discharge Exam Constitutional General: Comfortable, coherent, and cooperative. Wide awake and alert. Not confused, lethargic, or obtunded. Patient speaks in complete, fluent, and articulate sentences without pause, interruption, cough, or wheeze with O2 sat 97% on 4 liters/minute via nasal cannula (04/09/2025, 10:47am). HEENT: Normocephalic, atraumatic. No nystagmus, gaze paresis, anisocoria, miosis, mydriasis, hyphema, scleral injection, conjunctivitis, or pterygium. No otorrhea or rhinorrhea. No pharyngeal erythema, edema, or discharge. Neck: Supple, no stridor, bruit, goiter, or hepato-jugular reflux. Jugular venous pressure is estimated to be 3 cm above the sternal angle of Roberto, which in turn, is 5 cm above the level of the right atrium; with jugular venous pressure estimated to be 8 cm, then, there is no jugular venous distention on 04/09/2025. Lymphatics: No cervical (anterior/posterior), supraclavicular, infraclavic ular, axillary, epitrochlear, or inguinal adenopathy. Chest: Symmetric rise and fall with respirations. Non-tender to palpation. Lungs: Clear to auscultation and percussion. Heart: Regular rate and rhythm. S1 and S2 noted. No S3 or S4 summation gallop. No tripartite friction rub. Grade II/ early systolic murmur @ LLSB without radiation to the carotids, axilla, or back, and which remains invariant in regards to the respiratory cycle. Abdomen: Soft, non-tender, non-distended. No rebound, guarding, Moore's sign, or organomegaly. Bowel sounds auscultated in all 4 quadrants. Extremities: No clubbing, cyanosis, or edema. Skin: No decubitus ulcer, exanthem, or enanthem. Genito-urinary: No urethral discharge. + puentes catheter with 300 cc of clear yellow urine on 04/09/2025. Neurology: Alert and oriented in regards to person, place, time, and situation. DTR+ and symmetric. 5/5 motor strength in all 4 extremities, both proximally and distally. No pronator drift. No facial droop. No dysarthria. Psychiatry: No homicidal ideation. No suicidal ideation. No flat affect; smiles appropriately. Discharge Plan Discharge Items Patient Disposition: Home - Self-Care Reason For Visit: HEMATURIA,FLANK PAIN Discharge Diagnosis: 1. Severe sepsis due to acute UTI. 2. Acute urinary tract obstruction due to 10mm right renal pelvic calculus, with no acute kidney failure given normal creatinine 0.71 mg/dL (04/06/2025, 1:05pm). Condition on Discharge: Fair Activity: Resume your previous activity Lifting: Gradually increase as tolerated Bathing: No limitations Sexual Activity: When tolerated Driving/Machine Use: No limitations Weightbearing: Full weightbearing Non-emergency contact: Primary Care Provider Call non-emergency contact if: you have any medication questions Follow-up/Referrals: Larry Amaral MD [Primary Care Provider] - 04/16/25 8:30 am (Hospital follow up on April 16 at 8:30 am.) Elliot Mendoza DO [Physician] - Diet: Heart Healthy Addtl Attending Provider Instructions: See your Urologist Dr. Elliot Mendoza within 5 days of hospital discharge. Pending Studies at Discharge: Yes Studies:: final results of blood culture #1 (04/07/2025, 8:35am), and blood culture #2 (04/07/2025, 8:40pm) Stand-Alone Forms: My [facility] [employer], Smoking Cessation, Important Visit Information Medications and DC Order Prescriptions: New aspirin 81 mg Tablet,Delayed Release (Dr/Ec) 81 mg PO QAM Qty: 30 0RF hydrocortisone [Cortef] 10 mg Tablet 20 mg PO QAM Qty: 30 0RF hydrocortisone [Cortef] 10 mg Tablet 10 mg PO DAILY@1400 Qty: 30 0RF duloxetine 30 mg Capsule,Delayed Release(Dr/Ec) 30 mg PO PM Qty: 30 0RF duloxetine 60 mg Capsule,Delayed Release(Dr/Ec) 60 mg PO QAM Qty: 30 0RF cefdinir 300 mg capsule 300 mg PO BID 5 Days Qty: 10 0RF Continued clopidogrel [Plavix] 75 mg tablet 75 mg PO DAILY lithium carbonate 300 mg tablet 300 mg PO AMHS fluticasone propionate [Flonase Allergy Relief] 50 mcg/actuation spray,suspension 1 spray intranasal HS PRN (Reason: allergy symptoms) Qty: 16 0RF Rx Instructions: administer into each nostril (DME) insulin syringe-needle U-100 [BD Insulin Syringe Ultra-Fine] 1 mL 30 gauge x 1/2" syringe See Rx Instructions .Route Qty: 300 1RF Rx Instructions: use tid (DME) OneTouch Verio test strips Strip See Rx Instructions .MEDSUPPLY Qty: 150 5RF Rx Instructions: check blood sugars 4 times a day (DME) blood-glucose meter [OneTouch Verio Reflect Meter] Misc See Rx Instructions miscellaneous .MEDSUPPLY Qty: 1 0RF Rx Instructions: As directed (DME) lancets [OneTouch Delica Plus Lancet] 33 gauge mis See Rx Instructions .MEDSUPPLY Qty: 150 5RF Rx Instructions: As directed check blood sugars 4 times a day (DME) FreeStyle Rosalie 2 Sensor Kit See Rx Instructions .Route Qty: 6 3RF Rx Instructions: Change every 14 days Botox 200 unit recon soln See Rx Instructions IM .COMPLEX Qty: 1 3RF Rx Instructions: 155 UNITS IM IN THE FACE AND NECK MUSCLES EVERY 12 WEEKS PER MIGRAINE PROTOCOL rosuvastatin 20 mg tablet 20 mg PO QAM Qty: 90 2RF pantoprazole 40 mg tablet,delayed release (DR/EC) 40 mg PO BID Qty: 60 5RF (DME) pen needle, diabetic [BD Vy 2nd Gen Pen Needle] 32 gauge x 5/32" needle See Rx Instructions miscellaneous .MEDSUPPLY Qty: 100 3RF Rx Instructions: inject with a new pen needle daily lorazepam 0.5 mg tablet 0.5 mg PO DAILY PRN (Reason: Seizure Activity) levetiracetam 1,000 mg tablet 1,000 mg PO Q12H Qty: 60 6RF aspirin 81 mg tablet,delayed release (DR/EC) 81 mg PO QAM Qty: 90 3RF Norditropin FlexPro 5 mg/1.5 mL (3.3 mg/mL) pen injector 0.3 mg SQ QPM Qty: 2 5RF metoprolol succinate 25 mg tablet extended release 24 hr 25 mg PO HS Qty: 90 3RF desmopressin 0.2 mg tablet 0.4 mg PO BID Qty: 120 5RF lisinopril 40 mg tablet 40 mg PO DAILY Qty: 90 2RF divalproex 500 mg tablet,delayed release (DR/EC) 1,000 mg PO DAILY Qty: 60 6RF lacosamide 150 mg tablet 150 mg PO BID Qty: 60 5RF (DME) Oxygen Home Liters Per Minute See Rx Instructions .Route Rx Instructions: 4 L o2 via NC As directed, metformin 1,000 mg tablet 1,000 mg PO BID Qty: 180 3RF Hold Instructions: Per Dr Voss to hold as of 11/23/22 testosterone 20.25 mg/1.25 gram (1.62 %) gel in metered-dose pump 2 pump TOP PM Qty: 75 5RF Rx Instructions: apply 1 pump amount over max area of EACH upper arm and shoulder PDMP Queried ok to fill 03/17/2023 DS cholecalciferol (vitamin D3) 50 mcg (2,000 unit) capsule 50 mcg PO QPM Qty: 90 1RF Eliquis 5 mg tablet 5 mg PO Q12H Qty: 180 3RF (DME) [facility] See Rx Instructions .Route Qty: 1 0RF Rx Instructions: Check blood glucose before each meal (DME) OneTouch Verio test strips Strip See Rx Instructions .Route Rx Instructions: Test blood sugar two times daily mirtazapine [Remeron] 30 mg tablet 30 mg PO UD Rx Instructions: Take 30mg w/ 15mg tablet to equal 45mg at bedtime. albuterol sulfate [Ventolin HFA] 90 mcg/actuation HFA aerosol inhaler 2 inh inhalation Q6H PRN (Reason: shortness of breath or wheezing) Qty: 6.7 2RF budesonide 0.5 mg/2 mL suspension for nebulization 0.5 mg inhalation DAILY Qty: 60 5RF venlafaxine 75 mg capsule,extended release 24hr 75 mg PO DAILY Rx Instructions: Take with 150mg cap prazosin 5 mg capsule 5 mg PO DAILY ramelteon 8 mg tablet 8 mg PO ONCE (DME) FreeStyle Rosalie 2 Plus Sensor Device See Rx Instructions .Route Qty: 2 12RF Rx Instructions: Change every 15 days tirzepatide 5 mg/0.5 mL pen injector 5 mg subcut Q7D Qty: 2 4RF Rx Instructions: tuesday (DME) nebulizers [Compact Compressor Nebulizer[place] [facility] [place] Rx Instructions .Route Qty: 1 0RF Rx Instructions: One compact compressor nebulizer. Use as directed. Please include tubing, mouth piece and cup. ipratropium-albuterol 0.5 mg-3 mg(2.5 mg base)/3 mL solution for nebulization 3 ml inhalation QID PRN (Reason: wheezing) Qty: 90 0RF trazodone 100 mg tablet 100 mg PO HS ferrous sulfate 325 mg (65 mg iron) tablet 325 mg PO .qod famotidine [Acid Associate Director Of Sales (famotidine)] 20 mg tablet 20 mg PO DAILY 42 Days Qty: 42 3RF insulin glargine [Lantus Solostar U-100 Insulin] 100 unit/mL (3 mL) insulin pen 12 unit SUBCUT HS Hold Instructions: Has been on hold for a few weeks per pt Patient Comments: PER PT HE IS TAKING 12 UNITS -CONFIRMED ON 07/19/24 Nurtec ODT 75 mg tablet,disintegrating 75 mg PO DAILY PRN (Reason: Migraine Headache) Qty: 16 6RF magnesium oxide 400 mg (241.3 mg magnesium) tablet 400 mg PO DAILY potassium chloride 10 mEq tablet extended release 10 meq PO DAILY propranolol 120 mg capsule,extended release 24hr 120 mg PO HS Rx Instructions: Pt sates he thinks endocrinology ordered this for him- currently out Spiriva Respimat 2.5 mcg/actuation mist 2 puff inhalation DAILY Qty: 4 4RF sodium chloride 7 % solution for nebulization 1 inh inhalation BID Qty: 240 3RF acetylcysteine 200 mg/mL (20 %) solution 2 ml inhalation BID PRN (Reason: Chest congestion) Qty: 100 6RF duloxetine 60 mg capsule,delayed release(DR/EC) 60 mg PO UD Rx Instructions: Pt states that he takes 60mg in the morning and 30mg in the evening. Original Directions: 60mg by mouth twice daily dutasteride 0.5 mg capsule 0.5 mg PO QAM Rx Instructions: TAKE 1 CAPSULE BY MOUTH DAILY IN THE MORNING Baqsimi 3 mg/actuation spray,non-aerosol 3 mg intranasal ONCE PRN (Reason: Severe Hypoglycemia) Rx Instructions: for treatment of severe hypoglycemia, second dose may be given if patient does not respond after 15 minutes . Per caregiver, pt has never has to use this medication. bumetanide 1 mg Tablet 1 mg PO QAM Qty: 30 0RF vitamin B complex [Vitamins B Complex] Capsule 1 cap PO QAM Qty: 30 0RF hydrocodone-acetaminophen 7.5-325 mg tablet 1 tab PO Q6H oxybutynin chloride 5 mg tablet extended release 24hr 5 mg PO DAILY Rx Instructions: TAKE 1 TABLET BY MOUTH DAILY arformoterol [Brovana] 15 mcg/2 mL solution for nebulization 2 ml inhalation BID venlafaxine 150 mg capsule,extended release 24hr 150 mg PO DAILY quetiapine 50 mg tablet extended release 24 hr 50 mg PO DAILY nystatin 100,000 unit/gram cream 1 applic topical BID PRN (Reason: Other) levothyroxine [Synthroid] 150 mcg Tablet 150 mcg PO DAILYBB Qty: 30 0RF formoterol fumarate [Perforomist] 20 mcg/2 mL Solution For Nebulization 20 mcg NEB BIDR Qty: 60 0RF prednisone 10 mg tablet 10 mg PO DIRECTED Qty: 30 0RF Rx Instructions: 4 tabs for 3 days then 3 tabs for 3 days then 2 tabs for 3 days then 1 tab for 3 days aripiprazole 5 mg tablet 5 mg PO DAILY Discontinued hydrocortisone 10 mg tablet 10 mg PO UD Qty: 135 1RF Rx Instructions: TAKE 20mg IN THE AM AND 10mg IN THE afternoon around 2 o clock. MAY DOUBLE THE DOSE IN TIMES OF STRESS. doxycycline hyclate 100 mg tablet 100 mg PO BID Discharge Orders: Discharge Order (Routine); Ordered 04/09/25 Ordered By: Davy Benoit Admission Data Admit Date/Time: 04/06/25 16:37 Attending Provider: Davy Benoit Admit Provider: Alejandrina Mosley Primary Care Provider: Larry Amaral Other Providers: Elliot Mendoza; Deshaun Pacheco; Hernandez Fischer [facility] Hospital Stay Data Consultations 04/06/25 13:49 Consult Urology Stat 04/06/25 13:50 ED Decision to Admit Stat Procedures Performed Operation Date: 04/06/25 15:30 Actual Procedures p Cystoscopy, Urethral Dilation, Right Retrograde Pyelogram, Aspiration of Right Kidney, Right Ureteral Stent Placement(Right) - Elliot Mendoza, Diagnostic Imagining Performed 04/06/25 12:55 CT abd pelvis wo con Stat 04/06/25 14:39 FL retrograde includes kub Routine Pending Results Patient Have Any Pending Studies at Discharge: No Discharge Instructions Given to Patient (Per Discharging Provider) See your Urologist Dr. Elliot Mendoza within 5 days of hospital discharge. Total Time Total Time Spent Total Time Spent (In Minutes): 35 minutes. Of this time period, 19 minutes were spent in coordinating patient's discharge. Coding Level of Care Code 22026 INP/OBS DISCH >30 MIN Diagnoses Urinary tract obstruction due to kidney stone N20.0; N13.8 Pyelonephritis N12 Lactic acidosis E87.20 Sepsis A41.9 Uncontrolled type 2 diabetes mellitus with hyperglycemia E11.65 LPRD (laryngopharyngeal reflux disease) K21.9 Severe obesity (BMI 35.0-35.9 with comorbidity) E66.01; Z68.35 Pituitary diabetes insipidus E23.2 Pituitary hypogonadism E23.0 BPH with obstruction/lower urinary tract symptoms N40.1; N13.8 Nonepileptic episode R56.9
== END 2025-04-09 14:26 | disposition home or self-care (01) | DRG 853 ==
LOC: SUATTDRO → ED 12:39 → OR 15:31 → SUATTDRO 16:37 → 2S 16:37

== ENCOUNTER 2025-05-03 19:37 | Inpatient (IN) ==
[2025-05-03 20:02] LABS: Appearance Urine Clear (Clear); Bacteria Urine Automated None Seen (None Seen); Basophils # (auto) 0.05 K/uL (0.00-0.20); Basophils % (auto) 0.5 %; Bilirubin Urine Negative (Negative); Blood Urine 3+ (Negative); Cast Urine Automated 0-2 /lpf (0-2); Color Urine Red; Epithelial Cell Urine Auto 0-2 /hpf (0-2); Glucose Urine UA Negative (Negative); Hematocrit (blood only) 38.6 % (42.0-52.0); Immature Granulocytes # (auto) 0.12 K/uL (0.01-0.20); Immature Granulocytes % (auto) 1.2 %; Ketones Urine Negative (Negative); Leukocyte Esterase Urine 2+ (Negative); Lymphocytes # (auto) 2.95 K/uL (1.20-3.40); Lymphocytes % (auto) 30.4 %; Mean Corpuscular Hemoglobin 29.3 pg (25.0-34.0); Mean Corpuscular Hgb Conc 33.7 g/dL (32.0-36.0); Mean Corpuscular Volume 87.1 fL (80.0-100.0); Mean Platelet Volume 8.4 fL (9.4-12.4); Monocytes # (auto) 0.75 K/uL (0.11-0.59); Monocytes % (auto) 7.7 %; Neutrophils # (auto) 5.73 K/uL (1.40-6.50); Neutrophils % (auto) 59.2 %; Nitrite Urine Negative (Negative); Platelet Count 225 K/uL (130-400); Protein Urine 2+ (Negative); RBC Urine Automated >20 /hpf (0-2); RDW Coefficient of Variation 13.7 % (11.5-14.5); RDW Standard Deviation 43.8 fL (36.4-46.3); Red Blood Count 4.43 M/uL (4.70-6.10); Specific Gravity Urine 1.006 (1.000-1.030); Urobilinogen Urine Negative (Negative); pH Urine 7.5 (4.5-7.5)
[2025-05-03 20:20] LABS: Albumin Globulin Ratio 1.7 (0.9-2); BUN Creatinine Ratio 8.6 (10-20); Bilirubin,Total 0.3 mg/dl (0.2-1.0); Calcium 10.1 mg/dl (8.6-10.3); Creatinine Clr Calc Pharmacy 128.2 ml/min; Globulin 2.5 gm/dl (2.5-4.0); Potassium 3.7 mmol/L (3.5-5.1); Total Protein 6.8 gm/dl (6.0-8.3)
--- NOTE | 2025-05-03 20:29 | Emergency Department Note ---
History of Present Illness General Chief Complaint: Kidney Stone Stated Complaint: REFERED TO BY GRETCHEN, KIDNEY STONES Time Seen by Provider: 05/03/25 19:56 History of Present Illness Provider Complaint: flank pain Location: L flank and R flank Severity: severe Maximum Pain Intensity: 10 Quality: + stabbing and + sharp Relieved By: + nothing Exacerbated By: + nothing Context: + history of similar episodes (History of kidney stones) Associated Symptoms: + nausea and + vomiting; no diarrhea, no fever, no chills, no constipation, no dysuria, no hematemesis, no hematochezia, no melena, no hematuria, no headache and no chest pain Home Medications Medication Instructions Recorded Confirmed Type lithium carbonate 300 mg tablet 300 mg PO AMHS 06/04/22 05/03/25 History mirtazapine 30 mg tablet (Remeron) 30 mg PO HS 06/23/22 05/03/25 History fluticasone propionate 50 1 spray intranasal HS PRN allergy 03/16/23 05/03/25 Rx mcg/actuation nasal symptoms #16 grams spray,suspension (Flonase Allergy Relief) FreeStyle Rosalie 2 [place] (flash #1 ea 05/13/23 05/02/25 Rx glucose scanning reader) blood sugar diagnostic (OneTouch #150 ea 11/22/23 05/02/25 Rx Verio test strips) blood-glucose meter (OneTouch #1 ea 11/22/23 05/02/25 Rx Verio Reflect Meter) insulin syringe-needle U-100 1 mL #300 ea 11/22/23 05/02/25 Rx 30 gauge x 1/2" (BD Insulin Syringe Ultra-Fine) lancets 33 gauge (OneTouch Delica #150 ea 11/22/23 05/02/25 Rx Plus Lancet) albuterol sulfate 90 mcg/actuation 2 inh inhalation Q6H PRN shortness 02/24/24 05/03/25 Rx aerosol inhaler (Ventolin HFA) of breath or wheezing #6.7 grams dutasteride 0.5 mg capsule 0.5 mg PO QAM 04/06/24 05/03/25 History glucagon 3 mg/actuation nasal 3 mg intranasal ONCE PRN Severe 04/06/24 05/03/25 History spray (Baqsimi) Hypoglycemia FreeStyle Rosalie 2 Sensor (flash #6 ea 05/02/24 05/02/25 Rx glucose sensor) aripiprazole 5 mg tablet 5 mg PO QAM 05/29/24 05/03/25 History insulin glargine 100 unit/mL (3 12 unit subcut HS 07/19/24 05/03/25 History mL) subcutaneous pen (Lantus Solostar U-100 Insulin) ipratropium 0.5 mg-albuterol 3 mg 3 ml inhalation QID PRN wheezing 07/31/24 05/03/25 Rx (2.5 mg base)/3 mL nebulization #90 mL soln nebulizers (Compact Compressor #1 ea 07/31/24 05/02/25 Rx Nebulizer) Botox 200 unit injection See Rx Instructions IM .COMPLEX #1 09/18/24 05/03/25 Rx (onabotulinumtoxinA) ea rosuvastatin 20 mg tablet 20 mg PO QAM #90 tabs 09/19/24 05/03/25 Rx pantoprazole 40 mg tablet,delayed 40 mg PO BID #60 tabs 09/21/24 05/03/25 Rx release trazodone 100 mg tablet 100 mg PO HS 10/03/24 05/03/25 History pen needle, diabetic 32 gauge x #100 ea 10/23/24 05/02/25 Rx 5/32" (BD Vy 2nd Gen Pen Needle) bumetanide 1 mg tablet 1 mg PO QAM #30 tabs 10/26/24 05/03/25 Rx vitamin B complex (Vitamins B 1 cap PO QAM #30 caps 10/26/24 05/03/25 Rx Complex capsule) lorazepam 0.5 mg tablet 0.5 mg PO DAILY PRN Seizure 11/23/24 05/03/25 History Activity levetiracetam 1,000 mg tablet 1,000 mg PO Q12H #60 tabs 11/26/24 05/03/25 Rx ferrous sulfate 325 mg (65 mg 325 mg PO Q OTHER DAY 11/27/24 05/03/25 History iron) tablet desmopressin 0.2 mg tablet 0.4 mg (2 x 0.2 mg) PO BID #120 11/30/24 05/03/25 Rx tabs metoprolol succinate 25 mg 25 mg PO HS #90 tabs 11/30/24 05/03/25 Rx tablet,extended release 24 hr somatropin 5 mg/1.5 mL (3.3 mg/mL) 0.3 mg (0.09 mL) subcut QPM #2 11/30/24 05/03/25 Rx subcutaneous pen injector syringes (Norditropin FlexPro) clopidogrel 75 mg tablet (Plavix) 75 mg PO QPM 12/03/24 05/03/25 History lacosamide 150 mg tablet 150 mg PO BID #60 tabs 12/26/24 05/03/25 Rx arformoterol 15 mcg/2 mL solution 2 ml inhalation BID 01/16/25 05/03/25 History for nebulization (Brovana) oxybutynin chloride 5 mg 5 mg PO QAM 01/16/25 05/03/25 History tablet,extended release 24 hr Oxygen Home 01/30/25 05/02/25 History metformin 1,000 mg tablet 1,000 mg PO BID #180 tabs 02/26/25 05/03/25 Rx rimegepant 75 mg disintegrating 75 mg PO DAILY PRN Migraine 02/28/25 05/03/25 Rx tablet (Nurtec ODT) Headache #16 tabs magnesium oxide 400 mg (241.3 mg 400 mg PO DAILY 03/01/25 05/03/25 History magnesium) tablet potassium chloride 10 mEq 10 meq PO QPM 03/01/25 05/03/25 History tablet,extended release testosterone 2 pump topical PM #75 grams 03/18/25 05/03/25 Rx nystatin 100,000 unit/gram topical 1 applic topical BID PRN Other 03/19/25 05/03/25 History cream quetiapine 50 mg tablet,extended 50 mg PO QAM 03/19/25 05/03/25 History release 24 hr venlafaxine 150 mg 150 mg PO QAM 03/19/25 05/03/25 History capsule,extended release 24 hr formoterol fumarate 20 mcg/2 mL 20 mcg (2 mL) NEB BIDR #60 vials 03/24/25 05/03/25 Rx solution for nebulization (Perforomist) levothyroxine 150 mcg tablet 150 mcg PO DAILYBB #30 tabs 03/24/25 05/03/25 Rx (Synthroid) acetylcysteine 200 mg/mL (20 %) 2 ml inhalation BID PRN Chest 03/26/25 05/03/25 Rx solution congestion #100 mL cholecalciferol (vitamin D3) 50 50 mcg PO QPM #90 caps 03/26/25 05/03/25 Rx mcg (2,000 unit) capsule propranolol 120 mg capsule,24 120 mg PO HS 03/26/25 05/03/25 History hr,extended release sodium chloride 7 % for 1 inh inhalation BID #240 mL 03/26/25 05/03/25 Rx nebulization tiotropium bromide 2.5 2 puff inhalation DAILY #4 grams 03/26/25 05/03/25 Rx mcg/actuation mist for inhalation (Spiriva Respimat) apixaban 5 mg tablet (Eliquis) 5 mg PO Q12H #180 tabs 04/01/25 05/03/25 Rx prazosin 5 mg capsule 5 mg PO HS 04/05/25 05/03/25 History ramelteon 8 mg tablet 8 mg PO HS 04/05/25 05/03/25 History venlafaxine 75 mg capsule,extended 75 mg PO QAM 04/05/25 05/03/25 History release 24 hr duloxetine 30 mg capsule,delayed 30 mg PO HS #30 caps 04/12/25 05/03/25 Rx release ondansetron 8 mg disintegrating 8 mg PO Q8H PRN nausea and 04/29/25 05/03/25 Rx tablet vomiting #30 tabs phenazopyridine 200 mg tablet 200 mg PO TID #9 tabs 04/29/25 05/03/25 Rx (Pyridium) aspirin 81 mg capsule 81 mg PO QPM 05/03/25 05/03/25 History budesonide 0.5 mg/2 mL suspension 0.5 mg inhalation QPM 05/03/25 05/03/25 History for nebulization divalproex 500 mg tablet,delayed 1,000 mg PO QAM 05/03/25 05/03/25 History release duloxetine 60 mg capsule,delayed 60 mg PO QAM 05/03/25 05/03/25 History release famotidine 20 mg tablet (Acid 20 mg PO QAM 05/03/25 05/03/25 History Associate Consulting Engineer (famotidine)) hydrocortisone 10 mg tablet 10 - 20 mg PO UD 05/03/25 05/03/25 History lisinopril 40 mg tablet 40 mg PO QAM 05/03/25 05/03/25 History oxycodone-acetaminophen 5 mg-325 1.5 tab PO Q6H PRN pain (scale 05/03/25 05/03/25 History mg tablet (Percocet) score 7-10) tirzepatide 5 mg/0.5 mL 5 mg subcut WK 05/03/25 05/03/25 History subcutaneous pen injector Allergies Allergy/AdvReac Type Severity Reaction Status Date / Time clindamycin Allergy Intermediate SWELLING Verified 05/03/25 22:08 Iodinated Contrast Media Allergy Intermediate face/eye Verified 05/03/25 22:08 swelling Quinolones Allergy Intermediate HIVES Verified 05/03/25 22:08 tomato AdvReac Unknown Unknown Verified 05/03/25 22:08 Past Med/Surg History Problem List (Updated 05/03/25 @ 22:27 by Henry Higgins MD) Intractable back pain (Acute) Encounter for preoperative assessment (Acute) Numbness of right foot Advanced care planning/counseling discussion Palliative care by specialist Back pain at L4-L5 level Bilateral nephrolithiasis (Chronic) Acute flank pain Elevated lactic acid level Compartment syndrome of lower extremity Ambulatory dysfunction (Acute) Arthralgia Venous stasis ulcers (Acute) Chronic venous insufficiency (Chronic) Presbyopia of both eyes Epiretinal membrane (ERM) of left eye Ocular hypertension Secondary cataract of left eye with vision obscured Combined form of senile cataract of right eye Abnormal chest CT Demyelinating disease Esophageal dysphagia 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 Current use of proton pump inhibitor Chronic migraine without aura or status migrainosus Anemia (Acute) Ulcerative colitis Mixed hyperlipidemia Lumbar stenosis with neurogenic claudication Arachnoid cyst of posterior cranial fossa Pseudoseizures Idiopathic polyneuropathy Essential tremor Mitral regurgitation Depression Anxiety (Chronic) Medical History (Updated 05/03/25 @ 22:27 by Henry Higgins MD) History of pneumonia (03/2025) states has been admitted for total of 36 days ytd at [facility] for pneumonia, last was approxl 1 month ago Ocular hypertension Ulcerative colitis Mixed hyperlipidemia Lumbar stenosis with neurogenic claudication Idiopathic polyneuropathy Essential tremor Demyelinating disease Compartment syndrome of lower extremity (02/2025) per hx Chronic venous insufficiency Back pain at L4-L5 level Arthralgia Depression with anxiety Hx of fall (11/2024) History of dysphagia Hematuria On home O2 4 L nc History of recent hospitalization states has been in hospital 36 days this year so far with pneumonia- last was approx 1 month ago Sepsis Pyelonephritis Urinary tract obstruction due to kidney stone Lactic acidosis LPRD (laryngopharyngeal reflux disease) Severe obesity (BMI 35.0-35.9 with comorbidity) Uncontrolled type 2 diabetes mellitus with hyperglycemia Suspect low glycation index meaning his A1c is typically about 2 points lower than what his average glucose would suggest. Hypothyroidism Hypertension Non-occlusive coronary artery disease Acute dehydration hx Witnessed seizure-like activity Nonepileptic episode Chronic narcotic dependence COPD with exacerbation (03/2025) follows with dr. mccarthy (last seen while in hospital at [facility] with pneumonia ~) Anti-cyclic citrullinated peptide antibody positive Restrictive lung disease follows with dr. mccarthy, on O2 4L nc at all times Abnormal PFTs (pulmonary function tests) Bipolar disorder (10/11/22) Obstructive sleep apnea cpap 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 Follows with endocrinology- Secondary adrenal insufficiency Transient alteration of awareness Chronic adrenal insufficiency Leukocytosis Acute asthma exacerbation hx Acute on chronic hypoxic respiratory failure O2 4L nc Migraine Hematoma Growth hormone deficiency Diaphoresis hx Acute hypoxic respiratory failure hx Influenza A (12/2024) hx- Status epilepticus (09/13/24) Knee hemarthrosis, right (09/13/24) Acute on chronic anemia (09/13/24) Acute metabolic encephalopathy (09/13/24) hx Laceration of toe of right foot Closed fracture of right fibula with malunion Right fibular fracture hx Acute on chronic respiratory failure with hypoxia and hypercapnia Shortness of breath only if not wearing oxygen Chronic respiratory failure with hypoxia Obesity CKD (chronic kidney disease), stage III Peripheral edema Atrial fibrillation (02/15/24) no cardioversion- has loop recorder and watchmans device, follows with dr. kilgore (03/2025 while inpt.) Chronic low back pain Panhypopituitarism Lumbosacral radiculopathy Toxic encephalopathy Chest pain hx Acute dyspnea hx Acute CHF hx Hypoglycemia hx Syncope and collapse Reason for loop recorder No recent issues since bed bound from femur fracture in Sep 2022 per patient Internal hemorrhoids Recurrent seizures (05/01/25) goes sometimes months without seizures, then may may have 2 in one day- last seizure- 05/01/25- grand mal, lost control of bowel and bladder- informed neuro, dr. villa- told to stay on meds (last saw dr. villa on tu04/30/25) Pituitary diabetes insipidus Spondylolysis, lumbar region Right lumbar radiculopathy HTN (hypertension) Adrenal insufficiency Pituitary adenoma Hyperactive gag reflex BRCA gene positive tested positive in Aug 2023 [place] Family history of BRCA gene mutation PTSD (post-traumatic stress disorder) Epidural lipomatosis Chronic left sacroiliac pain Benzodiazepine overdose hx Presence of cardiac device Loop recorder > placed at [facility]- last checked fall 2023 Hx of fracture of foot Sep 2022- right > cast since removed > still gets painful Fracture of fibula, right, closed Cerebral concussion May 2023 during seizure > no further issues Orthostatic hypotension Sensorineural hearing loss of both ears Rectal bleeding on occasion History of COVID-19 10/2021 - fatigue; resolved. Mitral valve regurgitation follows with Dr. kilgore Vertigo Lower extremity edema Elevated LFTs Bilateral hand pain Pituitary neoplasm Dx'ed in 2001- s/p surgical resection and XRT Repeat surgery in 2017 secondary to tumor regrowth at [facility] Kidney stones currently causing severe pain Prostate mass benign Bladder mass benign Surgical History Presence of Watchman left atrial appendage closure device (02/2024) eric History of arthroplasty of left knee (2014) S/P TURP (status post transurethral resection of prostate) [place] of [place] [facility] [place] [facility] [place] History of cardiac cath (07/2021) 07/2021 - no stents- no ga - [facility]- follows with dr. kilgore S/P epidural steroid injection History of lithotripsy Status post right foot surgery replaced 5th metatarsal--hardware in place History of bladder surgery remove mass History of prostate surgery (2016) remove mass- not malignant History of colonoscopy History of esophagogastroduodenoscopy (EGD) History of tooth extraction History of wisdom tooth extraction History of brain [place] x2[place] [facility] [place] [facility]--for brain tumors > caused epilepsy Family History Grandmother (Paternal) Family history of diabetes mellitus Aunt Family history of diabetes mellitus Uncle Family history of diabetes mellitus Father Prostate cancer Heart disease Osteoarthritis Mother Cardiac disorder Grandmother (Maternal) Myocardial infarction Other Asthma Cancer Hypertension No family history of adverse response to anesthesia No family history of bleeding disorder Stroke Denies family history of Ovarian cancer Breast cancer Colorectal cancer Social History Smoking Status: Never smoker Second Hand Exposure: No; Do You Dip or Chew Tobacco: No; Hx Alcohol Use: No Hx Substance Use: No Preferred Language: Spanish Communication Ability: Effective Communication Ability Comment: Unable to obtain due to patient condition. Visual Impairment: Limited Hearing Ability: Normal Psychiatric Orderly Required: No Beliefs That Will Affect Care: None marital status: Single Current Living Situation: Spouse Current Living Situation Comment: and daughter in [place] current occupational status: disabled How many Children do You have: 3 How many Children do You have Comment: able to assist with care if needed Feels Safe at Home: Yes Childhood Exposure to Second-Hand Smoke: Yes (parents smoked) Diet: regular Diet Comment: going to be starting low carb/low calorie diet. caffeine: No (1/2 20 oz bottle of mountain dew. ) during the past year weight has: increased > 10 lbs Physical Activity Frequency: Daily Physical Activity Frequency Comment: walking, 1.5 miles daily. Seatbelt Use: always Do you think of yourself as: straight/heterosexual Gender Identity: Male Assistive Devices: CPAP and Nebulizer Physical Exam 2 Vital Signs: Vital Signs - 24 hr 05/03/25 19:39 05/03/25 20:01 05/03/25 20:34 Temperature 36.6 C Temperature Source Oral Pulse Rate 105 H 101 H Pulse Rate [Apical ] 97 H Respiratory Rate 18 16 Respiratory Effort / Characteristics Non-Labored Sponta neous Non-Labored Sponta neous Respiratory Depth Normal Respiratory Patter n Regular Blood Pressure 159/96 H Blood Pressure [Le ft Arm] 161/106 H Blood Pressure Cecilia n 117 Blood Pressure Cecilia n [Left Arm] 124 Blood Pressure Pos ition Sitting Pulse Oximetry 99 99 Oxygen Delivery Me thod Nasal Cannula Nasal Cannula Oxygen Flow Rate 4 Sepsis Recent Feve r Within 48 Hours No Sepsis New/Unexpla ined Change in Men matilde Status N/A Sepsis Action Take n by Nursing No Action Required 05/03/25 22:00 Temperature Temperature Source Pulse Rate Pulse Rate [Apical ] 91 H Respiratory Rate 16 Respiratory Effort / Characteristics Non-Labored Sponta neous Respiratory Depth Respiratory Patter n Blood Pressure Blood Pressure [Le ft Arm] 179/100 H Blood Pressure Cecilia n Blood Pressure Cecilia n [Left Arm] 126 Blood Pressure Pos ition Pulse Oximetry 100 Oxygen Delivery Me thod Nasal Cannula Oxygen Flow Rate 4 Sepsis Recent Feve r Within 48 Hours Sepsis New/Unexpla ined Change in Men matilde Status Sepsis Action Take n by Nursing Physical Exam: Physical Exam GENERAL: oriented to person, place, and time. appears well-developed and well- nourished. HENT: Exam performed. - Head: Normocephalic and atraumatic. EYES: Conjunctivae and EOM are normal. Right eye exhibits no discharge. Left eye exhibits no discharge. No scleral icterus. NECK: Normal range of motion. Neck supple. No JVD present. CV: Normal rate, regular rhythm, normal heart sounds and intact distal pulses. There is no peripheral edema. Palpable radial pulses bue. PULM/CHEST: Effort normal and breath sounds normal. No respiratory distress. No stridor. no wheezes. no rales. ABD: The abdomen is soft. There is no tenderness. NEURO: Motor and sensation grossly intact. SKIN: Skin is warm and dry. He is not diaphoretic. PSYCH: normal mood and affect. Behavior is normal. Judgment and thought content normal. Course Course 1955: The patient was evaluated in room A2. A complete history and physical exam was performed Cardiac monitoring: An order was placed for continuous cardiac monitoring. The monitor shows a rate of 100 with sinus rhythm interpreted by me 2140: Vital signs stable. Patient still having flank pain. Labs are unremarkable with exception of a lactic acid of 2.4. Patient is chronically elevated lactic acid. Spoke with urology on-call Dr. Mccormick. He states no need for any emergent procedure and they will evaluate him in the hospital when he is admitted for intractable flank pain. Administered Medications Discontinued Medications Sodium Chloride (Nss) 1,000 mls @ 999 mls/hr IV .Q1H1M ONE Stop: 05/03/25 20:57 Last Infusion: 05/03/25 21:36 Dose: Infused Documented By: Admin: 05/03/25 20:31 Dose: 999 mls/hr Documented By: KIANNA Ketorolac Tromethamine (Ketorolac Tromethamine 15 Mg/Ml Vial) 15 mg IV NOW STA Stop: 05/03/25 20:15 Last Admin: 05/03/25 20:31 Dose: 15 mg Documented By: KIANNA Morphine Sulfate (Morphine Sulfate 4 Mg/Ml 1 Ml Carp\\Vial) 4 mg IV NOW STA Stop: 05/03/25 21:16 Last Admin: 05/03/25 21:19 Dose: 4 mg Documented By: KIANNA Medical Decision Making Medical Records Attestation: I reviewed the patient's medical records. External medical records reviewed. Patient had outpatient renal ultrasound today which showed: RENAL ULTRASOUND CLINICAL HISTORY: N28.9 - Disorder of kidney and ureter, unspecified. Stones. COMPARISON STUDY: CT of the abdomen and pelvis April 06, 2025. TECHNIQUE: Sonography of the kidneys and the urinary bladder was performed. FINDINGS: The right kidney measures 13.9 cm in maximal dimension and the left measures 13.2 cm. There is no hydronephrosis. The distal aspect of the right ureteral stent within the bladder is noted. A 7 mm right upper pole renal calculus is noted. No left renal calculi are visualized by sonography. IMPRESSION: 1. No hydronephrosis. 2. Partially visualized right ureteral stent. 3. 7 mm right renal calculus. ACT 112: Negative or not required by law. Laboratory Data Attestation: I reviewed the patient's lab results. 05/03/25 19:49 05/03/25 19:49 Lab Results 05/03/25 05/03/25 05/03/25 Range/Units 19:49 20:05 22:00 WBC 9.70 (4.8-10.8) K/ul RBC 4.43 L (4.70-6.10) M/uL Hgb 13.0 L (14.0-18.0) g/dl Hct 38.6 L (42.0-52.0) % MCV 87.1 (80.0-100.0) fL MCH 29.3 (25.0-34.0) pg MCHC 33.7 (32.0-36.0) g/dL RDW Std Deviation 43.8 (36.4-46.3) fL RDW Coeff of Yanira 13.7 (11.5-14.5) % Plt Count 225 (130-400) K/uL MPV 8.4 L (9.4-12.4) fL Immature Gran % (Auto) 1.2 % Neut % (Auto) 59.2 % Lymph % (Auto) 30.4 % [place] % (Auto) 7.7 % Eos % (Auto) 1.0 % Baso % (Auto) 0.5 % Neut # (Auto) 5.73 (1.40-6.50) K/uL Lymph # (Auto) 2.95 (1.20-3.40) K/uL [place] # (Auto) 0.75 H (0.11-0.59) K/uL Eos # (Auto) 0.10 (0.00-0.50) K/uL Baso # (Auto) 0.05 (0.00-0.20) K/uL Immature Gran # (Auto) 0.12 (0.01-0.20) K/uL Sodium 145 (136-145) mmol/L Potassium 3.7 (3.5-5.1) mmol/L Chloride 107 (98-107) mmol/L Carbon Dioxide 29 (21-32) mmol/L Anion Gap 9 (3-11) BUN 7 (6-23) mg/dl Creatinine 0.81 (0.6-1.4) mg/dl Est Cr Clr Drug Dosing 128.2 ml/min eGFR 103.48 BUN/Creatinine Ratio 8.6 L (10-20) Glucose 114 H (70-99(Fasting)) mg/dl Lactate 2.4 H* 1.5 (0.4-2.0) mmol/L Calcium 10.1 (8.6-10.3) mg/dl Total Bilirubin 0.3 (0.2-1.0) mg/dl AST 42 H (13-39) U/L ALT 52 (7-52) U/L Alkaline Phosphatase 65 (34-104) U/L Total Protein 6.8 (6.0-8.3) gm/dl Albumin 4.3 (3.4-5.0) gm/dl Globulin 2.5 (2.5-4.0) gm/dl Albumin/Globulin Ratio 1.7 (0.9-2) Procalcitonin < 0.02 (0-0.5) ng/ml Urine Color Red Urine Appearance Clear (Clear) Urine pH 7.5 (4.5-7.5) Ur Specific [place] 1.006 (1.000-1.030) Urine Protein 2+ H (Negative) Urine Glucose (UA) Negative (Negative) Urine Ketones Negative (Negative) Urine Blood 3+ H (Negative) Urine Nitrite Negative (Negative) Urine Bilirubin Negative (Negative) Urine Urobilinogen Negative (Negative) Ur Leukocyte Esterase 2+ H (Negative) Urine WBC (Auto) 11-20 H (0-5) /hpf Urine RBC (Auto) >20 H (0-2) /hpf U Hyaline Cast (Auto) 0-2 (0-2) /lpf U Epithel Cells (Auto) 0-2 (0-2) /hpf Urine Bacteria (Auto) None Seen (None Seen) Urine Comment MDM Narrative 1955: The patient was evaluated in room A2. A complete history and physical exam was performed Cardiac monitoring: An order was placed for continuous cardiac monitoring. The monitor shows a rate of 100 with sinus rhythm interpreted by me 2140: Vital signs stable. Patient still having flank pain. Labs are unremarkable with exception of a lactic acid of 2.4. Patient is chronically elevated lactic acid. Spoke with urology on-call Dr. Mccormick. He states no need for any emergent procedure and they will evaluate him in the hospital when he is admitted for intractable flank pain. Impression & Plan Intractable back pain Discharge Plan Visit Data Chief Complaint: Kidney Stone Stated Complaint: REFERED TO BY DOC, KIDNEY STONES ED Provider: Henry Higgins Discharge Problem: Intractable back pain Patient Disposition: Being Evaluated by Hospitalist Condition: Fair Forms Stand Alone Forms: My [facility] Prescriptions Prescriptions: No Action clopidogrel [Plavix] 75 mg tablet 75 mg PO QPM lithium carbonate 300 mg tablet 300 mg PO AMHS fluticasone propionate [Flonase Allergy Relief] 50 mcg/actuation spray,suspension 1 spray intranasal HS PRN (Reason: allergy symptoms) Qty: 16 0RF Rx Instructions: administer into each nostril (DME) insulin syringe-needle U-100 [BD Insulin Syringe Ultra-Fine] 1 mL 30 gauge x 1/2" syringe See Rx Instructions .Route Qty: 300 1RF Rx Instructions: use tid (DME) OneTouch Verio test strips Strip See Rx Instructions .MEDSUPPLY Qty: 150 5RF Rx Instructions: check blood sugars 4 times a day (DME) blood-glucose meter [OneTouch Verio Reflect Meter] Misc See Rx Instructions miscellaneous .MEDSUPPLY Qty: 1 0RF Rx Instructions: As directed (DME) lancets [OneTouch Delica Plus Lancet] 33 gauge misc See Rx Instructions .MEDSUPPLY Qty: 150 5RF Rx Instructions: As directed check blood sugars 4 times a day (DME) FreeStyle Rosalie 2 Sensor Kit See Rx Instructions .Route Qty: 6 3RF Rx Instructions: Change every 14 days Botox 200 unit recon soln See Rx Instructions IM .COMPLEX Qty: 1 3RF Rx Instructions: 155 UNITS IM IN THE FACE AND NECK MUSCLES EVERY 12 WEEKS PER MIGRAINE PROTOCOL rosuvastatin 20 mg tablet 20 mg PO QAM Qty: 90 2RF pantoprazole 40 mg tablet,delayed release (DR/EC) 40 mg PO BID Qty: 60 5RF (DME) pen needle, diabetic [BD Vy 2nd Gen Pen Needle] 32 gauge x 5/32" needle See Rx Instructions miscellaneous .MEDSUPPLY Qty: 100 3RF Rx Instructions: inject with a new pen needle daily lorazepam 0.5 mg tablet 0.5 mg PO DAILY PRN (Reason: Seizure Activity) levetiracetam 1,000 mg tablet 1,000 mg PO Q12H Qty: 60 6RF Norditropin FlexPro 5 mg/1.5 mL (3.3 mg/mL) pen injector 0.3 mg SQ QPM Qty: 2 5RF metoprolol succinate 25 mg tablet extended release 24 hr 25 mg PO HS Qty: 90 3RF desmopressin 0.2 mg tablet 0.4 mg PO BID Qty: 120 5RF lacosamide 150 mg tablet 150 mg PO BID Qty: 60 5RF (DME) Oxygen Home Liters Per Minute See Rx Instructions .Route Rx Instructions: 4 L o2 via NC As directed, metformin 1,000 mg tablet 1,000 mg PO BID Qty: 180 3RF Hold Instructions: Per Dr Voss to hold as of 11/23/22 testosterone 20.25 mg/1.25 gram (1.62 %) gel in metered-dose pump 2 pump TOP PM Qty: 75 5RF Rx Instructions: apply 1 pump amount over max area of EACH upper arm and shoulder PDMP Queried ok to fill 03/17/2023 DS cholecalciferol (vitamin D3) 50 mcg (2,000 unit) capsule 50 mcg PO QPM Qty: 90 1RF Eliquis 5 mg tablet 5 mg PO Q12H Qty: 180 3RF (DME) FreeStyle Rosalie 2 [facility] [place] See Rx Instructions .Route Qty: 1 0RF Rx Instructions: Check blood glucose before each meal mirtazapine [Remeron] 30 mg tablet 30 mg PO HS albuterol sulfate [Ventolin HFA] 90 mcg/actuation HFA aerosol inhaler 2 inh inhalation Q6H PRN (Reason: shortness of breath or wheezing) Qty: 6.7 2RF venlafaxine 75 mg capsule,extended release 24hr 75 mg PO QAM Rx Instructions: Take with 150mg cap prazosin 5 mg capsule 5 mg PO HS ramelteon 8 mg tablet 8 mg PO HS (DME) nebulizers [Compact Compressor Nebulizer] [facility] [place] See Rx Instructions .Route Qty: 1 0RF Rx Instructions: One compact compressor nebulizer. Use as directed. Please include tubing, mouth piece and cup. ipratropium-albuterol 0.5 mg-3 mg(2.5 mg base)/3 mL solution for nebulization 3 ml inhalation QID PRN (Reason: wheezing) Qty: 90 0RF trazodone 100 mg tablet 100 mg PO HS ondansetron 8 mg tablet,disintegrating 8 mg PO Q8H PRN (Reason: nausea and vomiting) Qty: 30 0RF phenazopyridine [Pyridium] 200 mg tablet 200 mg PO TID Qty: 9 2RF Rx Instructions: Can take three times daily for up to three days; then must give the body a two day break ferrous sulfate 325 mg (65 mg iron) tablet 325 mg PO Q OTHER DAY insulin glargine [Lantus Solostar U-100 Insulin] 100 unit/mL (3 mL) insulin pen 12 unit SUBCUT HS Hold Instructions: Has been on hold for a few weeks per pt Patient Comments: PER PT HE IS TAKING 12 UNITS -CONFIRMED ON 07/19/24 Nurtec ODT 75 mg tablet,disintegrating 75 mg PO DAILY PRN (Reason: Migraine Headache) Qty: 16 6RF magnesium oxide 400 mg (241.3 mg magnesium) tablet 400 mg PO DAILY potassium chloride 10 mEq tablet extended release 10 meq PO QPM propranolol 120 mg capsule,extended release 24hr 120 mg PO HS Spiriva Respimat 2.5 mcg/actuation mist 2 puff inhalation DAILY Qty: 4 4RF sodium chloride 7 % solution for nebulization 1 inh inhalation BID Qty: 240 3RF acetylcysteine 200 mg/mL (20 %) solution 2 ml inhalation BID PRN (Reason: Chest congestion) Qty: 100 6RF dutasteride 0.5 mg capsule 0.5 mg PO QAM Rx Instructions: TAKE 1 CAPSULE BY MOUTH DAILY IN THE MORNING Baqsimi 3 mg/actuation spray,non-aerosol 3 mg intranasal ONCE PRN (Reason: Severe Hypoglycemia) Rx Instructions: for treatment of severe hypoglycemia, second dose may be given if patient does not respond after 15 minutes . Per caregiver, pt has never has to use this medication. bumetanide 1 mg Tablet 1 mg PO QAM Qty: 30 0RF vitamin B complex [Vitamins B Complex] Capsule 1 cap PO QAM Qty: 30 0RF oxybutynin chloride 5 mg tablet extended release 24hr 5 mg PO QAM Rx Instructions: TAKE 1 TABLET BY MOUTH DAILY arformoterol [Brovana] 15 mcg/2 mL solution for nebulization 2 ml inhalation BID venlafaxine 150 mg capsule,extended release 24hr 150 mg PO QAM quetiapine 50 mg tablet extended release 24 hr 50 mg PO QAM nystatin 100,000 unit/gram cream 1 applic topical BID PRN (Reason: Other) levothyroxine [Synthroid] 150 mcg Tablet 150 mcg PO DAILYBB Qty: 30 0RF formoterol fumarate [Perforomist] 20 mcg/2 mL Solution For Nebulization 20 mcg NEB BIDR Qty: 60 0RF duloxetine 30 mg capsule,delayed release(DR/EC) 30 mg PO HS Qty: 30 0RF tirzepatide 5 mg/0.5 mL pen injector 5 mg subcut WK Rx Instructions: tuesday PER PT "HOLDING DOSE ON 05/05/25 FOR PROCEDURE". aripiprazole 5 mg tablet 5 mg PO QAM divalproex 500 mg tablet,delayed release (DR/EC) 1,000 mg PO QAM oxycodone-acetaminophen [Percocet] 5-325 mg tablet 1.5 tab PO Q6H PRN (Reason: pain (scale score 7-10)) famotidine [Acid Associate Consulting Engineer (famotidine)] 20 mg tablet 20 mg PO QAM budesonide 0.5 mg/2 mL suspension for nebulization 0.5 mg inhalation QPM hydrocortisone 10 mg tablet 10 - 20 mg PO UD Rx Instructions: 2 tabs (20mg) in AM, 1 tab (10mg) in PM lisinopril 40 mg tablet 40 mg PO QAM duloxetine 60 mg capsule,delayed release(DR/EC) 60 mg PO QAM aspirin 81 mg capsule 81 mg PO QPM Referrals Referrals: Larry Amaral MD [Primary Care Provider] -
[2025-05-03] MEDS: SODIUM CHLORIDE 0.9% 1,000 ML IV ONE (20:31)
[2025-05-03] MEDS: KETOROLAC TROMETHAMINE 15 MG/ML VIAL IV STA (20:31)
[2025-05-03] MEDS: MoRPHine SULFATE 4 MG/ML 1 ML CARP\\VIAL IV STA (21:19)
--- NOTE | 2025-05-03 23:11 | History & Physical Report ---
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 States his pain has been present since he was discharged in late March/2025 and is noted in bilateral flanks but more bothersome in right side. Admitted for management of nephrolithiasis. Bilateral Kidney Stones - Follows with urology after recent admission for similar concern - Has stent placed on right side and there were plans for possible stent placement on the left as well as procedure mentioned above - Renal US showing non-obstructing 7 mm right renal calculus - Will admit patient to PCU/Tele - Pain management with Tylenol 1000 mg q8h abi, Dilaudid 0.5mg q3h prn for moderate pain, and Dilaudid 1 mg q3h prn for severe pain - Flomax and IVF - Urology consult placed. Will appreciate reccs. Hematuria - Persisted since shortly after last admission, per patient - Possibly the cause of noted suprapubic tenderness and dysuria, but given noted leuk esterase in U/A and onset of dysuria 4 days ago, cannot r/o UTI. Add Ceftriaxone; U/Cx pending - Has continued to take Eliquis despite noted hematuria - Hold Eliquis - Urology consult. Would appreciate their recs PNES versus Seizure - Unsure if recent episode described by patient was a seizure episode or PNES - Follows neurology as an outpatient - Continue valproic acid, lacosamide, and levetiracetam pA-fib - mild sinus tachycardia with HR between 100-110s in ER - Continue metoprolol - Eliquis on hold due to hematuria Adrenal Insufficiency - Continue home hydrocortisone 20 qam and 10 at 2pm Asthma/COPD - Uses home oxygen 2 lpm at rest and 4 lpm with activity - Continue home inhalers and prn neb Hypothyroidism - Continue Levothyroxine HTN - Continue Lisinopril, Propranolol HLD - Continue Rosuvastatin DM-2 - On Lantus 12U qhs, Metformin 1000mg bid and Mounjaro at home which he takes as prescribed - Hgb A1c 5.8% - Lantus and SSI while admitted; bsg checks achs Lumbar stenosis // chronic pain - On home Percocet and takes as prescribed; held for now - Dilaudid and Tylenol during this admission Anxiety // Depression - Follow psychiatry as an outpatient - Continue Abilify, duloxetine, lithium, mirtazapine, quetiapine, venlafaxine, and trazodone CORINA - Continue nighttime CPAP Dispo: PCU/Tele Fluids: NSS Diet: NPO Pain Control: Tylenol, Dilaudid VTE ppx: Eliquis on hold due to hematuria; SCDs Code Status: DNR/DNI History of Present Illness Chief Complaint: Flank Pain Primary Care Provider: Larry Amaral MD Patient is a 54 y/o M w/ PMHx of pAfib (on Eliquis), Adrenal Insufficiency, DM- 2, HTN, HLD, PNES, lumbar stenosis w/ neurogenic claudication, recent admission for b/l nephrolithiasis w/ obstructing stone on right side and possible subsequent sepsis, stent placement in (R) side in this recent admission and plans for upcoming urologic procedure on (05/09/25; ureteral dilation, right-sided retrograde pyelogram, and aspiration) who was referred to ED by urology office after he called them to notify progressively worsening flank pain. States his pain has been present since he was discharged in late March/2025 and is noted in bilateral flanks but more bothersome in right side. also endorses having hematuria but no urinary symptoms. Has been taking prescribed Percocet q6h and no other pain medications. Does take Eliquis due to hx of a-fib and has continued to do so (last dose was this am). Patient states that a few days ago the pain was worse and he felt lightheaded/dizzy and then cannot recall anything that happened afterwards, but his daughter who was with him states that he fell down and was seizing, and when he woke up he had urinated himself. He does not remember the episode itself and recalls what happened from when he stood up after the episode. No recurrence since then, and has been taking anticonvulsants as prescribed. ED Course: Given Morphine 4mg x1, Toradol 15 mg IV x1, NSS 1L bolus; ED physician discussed with cash control specialist Urologist who stated that they would evaluate patient tomorrow morning Labs/Imaging: CBC w/o leukocytosis, hgb of 13, plt of 225. CMP w/o significant electrolyte abnormalities, Creatinine of 0.81, and bsg of 144. hgb A1c was 5.8%. Lactate was 2.4 which improved to 1.5 after fluid bolus. Calcium was 10.1. U/A with noted blood and leuk esterase but no bacteria. Urine culture pending). Renal US showing 7mm on right upper renal pole that is non obstructing, and no hydronephrosis noted. Medical History: [Reviewed] Medications: [Reviewed] Surgical History: [Reviewed] Family history: [Reviewed] Allergies: [Reviewed] Social History: [Reviewed] Code Status: DNR/DNI Allergies Allergy/AdvReac Type Severity Reaction Status Date / Time clindamycin Allergy Intermediate SWELLING Verified 05/20/25 11:34 Iodinated Contrast Media Allergy Intermediate face/eye Verified 05/20/25 11:34 swelling Quinolones Allergy Intermediate HIVES Verified 05/20/25 11:34 tomato AdvReac Unknown swelling Verified 05/20/25 11:34 Home Medications Medication Instructions Recorded Confirmed Type lithium carbonate 300 mg tablet 300 mg PO AMHS 06/04/22 05/13/25 History mirtazapine 30 mg tablet (Remeron) 30 mg PO HS 06/23/22 05/13/25 History fluticasone propionate 50 1 spray intranasal HS PRN allergy 03/16/23 05/13/25 Rx mcg/actuation nasal symptoms #16 grams spray,suspension (Flonase Allergy Relief) [facility] [place] (flash #1 ea 05/13/23 05/02/25 Rx glucose scanning reader) blood sugar diagnostic ([facility]a 11/22/23 05/02/25 Rx Verio test strips) blood-glucose meter (OneTouch #1 ea 11/22/23 05/02/25 Rx Verio Reflect Meter) insulin syringe-needle U-100 1 mL #300 ea 11/22/23 05/02/25 Rx 30 gauge x 1/2" (BD Insulin Syringe Ultra-Fine) lancets 33 gauge ([employer] Delica #150 ea 11/22/23 05/02/25 Rx Plus Lancet) albuterol sulfate 90 mcg/actuation 2 inh inhalation Q6H PRN shortness 02/24/24 05/13/25 Rx aerosol inhaler (Ventolin HFA) of breath or wheezing #6.7 grams dutasteride 0.5 mg capsule 0.5 mg PO QAM 04/06/24 05/13/25 History glucagon 3 mg/actuation nasal 3 mg intranasal ONCE PRN Severe 04/06/24 05/13/25 History spray (Baqsimi) Hypoglycemia aripiprazole 5 mg tablet 5 mg PO QAM 05/29/24 05/13/25 History insulin glargine 100 unit/mL (3 12 unit subcut HS 07/19/24 05/13/25 History mL) subcutaneous pen (Lantus Solostar U-100 Insulin) ipratropium 0.5 mg-albuterol 3 mg 3 ml inhalation QID PRN wheezing 07/31/24 05/13/25 Rx (2.5 mg base)/3 mL nebulization #90 mL soln nebulizers (Compact Compressor #1 ea 07/31/24 05/02/25 Rx Nebulizer) Botox 200 unit injection See Rx Instructions IM .COMPLEX #1 09/18/24 05/13/25 Rx (onabotulinumtoxinA) ea rosuvastatin 20 mg tablet 20 mg PO QAM #90 tabs 09/19/24 05/13/25 Rx pantoprazole 40 mg tablet,delayed 40 mg PO BID #60 tabs 09/21/24 05/13/25 Rx release trazodone 100 mg tablet 100 mg PO HS 10/03/24 05/13/25 History pen needle, diabetic 32 gauge x #100 ea 10/23/24 05/02/25 Rx 5/32" (BD Vy 2nd Gen Pen Needle) bumetanide 1 mg tablet 1 mg PO QAM #30 tabs 10/26/24 05/13/25 Rx vitamin B complex (Vitamins B 1 cap PO QAM #30 caps 10/26/24 05/13/25 Rx Complex capsule) lorazepam 0.5 mg tablet 0.5 mg PO DAILY PRN Seizure 11/23/24 05/13/25 History Activity levetiracetam 1,000 mg tablet 1,000 mg PO Q12H #60 tabs 11/26/24 05/13/25 Rx ferrous sulfate 325 mg (65 mg 325 mg PO Q OTHER DAY 11/27/24 05/13/25 History iron) tablet metoprolol succinate 25 mg 25 mg PO HS #90 tabs 11/30/24 05/13/25 Rx tablet,extended release 24 hr somatropin 5 mg/1.5 mL (3.3 mg/mL) 0.3 mg (0.09 mL) subcut QPM #2 11/30/24 05/13/25 Rx subcutaneous pen injector syringes (Norditropin FlexPro) clopidogrel 75 mg tablet (Plavix) 75 mg PO QPM 12/03/24 05/13/25 History lacosamide 150 mg tablet 150 mg PO BID #60 tabs 12/26/24 05/13/25 Rx arformoterol 15 mcg/2 mL solution 2 ml inhalation BID 01/16/25 05/13/25 History for nebulization (Brovana) oxybutynin chloride 5 mg 5 mg PO QAM 01/16/25 05/13/25 History tablet,extended release 24 hr Oxygen Home 01/30/25 05/02/25 History metformin 1,000 mg tablet 1,000 mg PO BID #180 tabs 02/26/25 05/13/25 Rx rimegepant 75 mg disintegrating 75 mg PO DAILY PRN Migraine 02/28/25 05/13/25 Rx tablet (Nurtec ODT) Headache #16 tabs magnesium oxide 400 mg (241.3 mg 400 mg PO DAILY 03/01/25 05/13/25 History magnesium) tablet potassium chloride 10 mEq 10 meq PO QPM 03/01/25 05/13/25 History tablet,extended release testosterone 2 pump topical PM #75 grams 03/18/25 05/13/25 Rx nystatin 100,000 unit/gram topical 1 applic topical BID PRN Other 03/19/25 05/13/25 History cream quetiapine 50 mg tablet,extended 50 mg PO QAM 03/19/25 05/13/25 History release 24 hr venlafaxine 150 mg 150 mg PO QAM 03/19/25 05/13/25 History capsule,extended release 24 hr formoterol fumarate 20 mcg/2 mL 20 mcg (2 mL) NEB BIDR #60 vials 03/24/25 05/13/25 Rx solution for nebulization (Perforomist) acetylcysteine 200 mg/mL (20 %) 2 ml inhalation BID PRN Chest 03/26/25 05/13/25 Rx solution congestion #100 mL cholecalciferol (vitamin D3) 50 50 mcg PO QPM #90 caps 03/26/25 05/13/25 Rx mcg (2,000 unit) capsule propranolol 120 mg capsule,24 120 mg PO HS 03/26/25 05/13/25 History hr,extended release sodium chloride 7 % for 1 inh inhalation BID #240 mL 03/26/25 05/13/25 Rx nebulization tiotropium bromide 2.5 2 puff inhalation DAILY #4 grams 03/26/25 05/13/25 Rx mcg/actuation mist for inhalation (Spiriva Respimat) prazosin 5 mg capsule 5 mg PO HS 04/05/25 05/13/25 History ramelteon 8 mg tablet 8 mg PO HS 04/05/25 05/13/25 History venlafaxine 75 mg capsule,extended 75 mg PO QAM 04/05/25 05/13/25 History release 24 hr duloxetine 30 mg capsule,delayed 30 mg PO HS #30 caps 04/12/25 05/13/25 Rx release ondansetron 8 mg disintegrating 8 mg PO Q8H PRN nausea and 04/29/25 05/13/25 Rx tablet vomiting #30 tabs phenazopyridine 200 mg tablet 200 mg PO TID #9 tabs 04/29/25 05/13/25 Rx (Pyridium) aspirin 81 mg capsule 81 mg PO QPM 05/03/25 05/13/25 History budesonide 0.5 mg/2 mL suspension 0.5 mg inhalation QPM 05/03/25 05/13/25 History for nebulization divalproex 500 mg tablet,delayed 1,000 mg PO QAM 05/03/25 05/13/25 History release duloxetine 60 mg capsule,delayed 60 mg PO QAM 05/03/25 05/13/25 History release famotidine 20 mg tablet (Acid 20 mg PO QAM 05/03/25 05/13/25 History Custodial Engineer (famotidine)) hydrocortisone 10 mg tablet 10 - 20 mg PO UD 05/03/25 05/13/25 History lisinopril 40 mg tablet 40 mg PO QAM 05/03/25 05/13/25 History tirzepatide 5 mg/0.5 mL 5 mg subcut WK 05/03/25 05/13/25 History subcutaneous pen injector FreeStyle Rosalie 2 Sensor (flash #6 ea 05/06/25 Rx glucose sensor) levothyroxine 150 mcg tablet 150 mcg PO DAILYBB #30 tabs 05/06/25 05/13/25 Rx (Synthroid) desmopressin 0.2 mg tablet 0.4 mg (2 x 0.2 mg) PO BID #120 05/16/25 Rx tabs naloxone 4 mg/actuation nasal 1 spray intranasal ONCE PRN opioid 05/18/25 Rx spray (Narcan) overdose #2 ea oxycodone 5 mg tablet 15 mg (3 x 5 mg) PO Q4H PRN pain 05/18/25 Rx #84 tabs Past Med/Surg History Problem List (Updated 05/19/25 @ 00:07 by Background Daana) Therapeutic opioid-induced constipation (OIC) Counseling regarding advanced directives and goals of care Generalized pain Bipolar 1 disorder Diabetes Psychogenic nonepileptic seizure Asthma COPD (chronic obstructive pulmonary disease) Intractable back pain (Acute) Encounter for preoperative assessment (Acute) Numbness of right foot Advanced care planning/counseling discussion Palliative care by specialist Back pain at L4-L5 level Bilateral nephrolithiasis (Chronic) Elevated lactic acid level Compartment syndrome of lower extremity Ambulatory dysfunction (Acute) Arthralgia Venous stasis ulcers (Acute) Chronic venous insufficiency (Chronic) Presbyopia of both eyes Epiretinal membrane (ERM) of left eye Ocular hypertension Secondary cataract of left eye with vision obscured Combined form of senile cataract of right eye Abnormal chest CT Demyelinating disease Esophageal dysphagia 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 Current use of proton pump inhibitor Chronic migraine without aura or status migrainosus Anemia (Acute) Ulcerative colitis Mixed hyperlipidemia Lumbar stenosis with neurogenic claudication Arachnoid cyst of posterior cranial fossa Pseudoseizures Idiopathic polyneuropathy Essential tremor Mitral regurgitation Depression Anxiety (Chronic) Medical History History of pneumonia (03/2025) states has been admitted for total of 36 days ytd at [facility] for pneumonia, last was approxl 1 month ago Ocular hypertension Ulcerative colitis Mixed hyperlipidemia Lumbar stenosis with neurogenic claudication Idiopathic polyneuropathy Essential tremor Demyelinating disease Compartment syndrome of lower extremity (02/2025) per hx Chronic venous insufficiency Back pain at L4-L5 level Arthralgia Depression with anxiety Hx of fall (11/2024) History of dysphagia Hematuria On home O2 4 L nc History of recent hospitalization states has been in hospital 36 days this year so far with pneumonia- last was approx 1 month ago Sepsis Pyelonephritis Urinary tract obstruction due to kidney stone Lactic acidosis LPRD (laryngopharyngeal reflux disease) Severe obesity (BMI 35.0-35.9 with comorbidity) Uncontrolled type 2 diabetes mellitus with hyperglycemia Suspect low glycation index meaning his A1c is typically about 2 points lower than what his average glucose would suggest. Hypothyroidism Hypertension Non-occlusive coronary artery disease Acute dehydration hx Witnessed seizure-like activity Nonepileptic episode Chronic narcotic dependence COPD with exacerbation (03/2025) follows with dr. mccarthy (last seen while in hospital at [facility] with pneumonia ~) Anti-cyclic citrullinated peptide antibody positive Restrictive lung disease follows with dr. mccarthy, on O2 4L nc at all times Abnormal PFTs (pulmonary function tests) Bipolar disorder (10/11/22) Obstructive sleep apnea cpap 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 Follows with endocrinology- Secondary adrenal insufficiency Transient alteration of awareness Chronic adrenal insufficiency Leukocytosis Acute asthma exacerbation hx Acute on chronic hypoxic respiratory failure O2 4L nc Migraine Hematoma Growth hormone deficiency Diaphoresis hx Acute hypoxic respiratory failure hx Influenza A (12/2024) hx- Status epilepticus (09/13/24) Knee hemarthrosis, right (09/13/24) Acute on chronic anemia (09/13/24) Acute metabolic encephalopathy (09/13/24) hx Laceration of toe of right foot Closed fracture of right fibula with malunion Right fibular fracture hx Acute on chronic respiratory failure with hypoxia and hypercapnia Shortness of breath only if not wearing oxygen Chronic respiratory failure with hypoxia Obesity CKD (chronic kidney disease), stage III Peripheral edema Atrial fibrillation (02/15/24) no cardioversion- has loop recorder and watchmans device, follows with dr. kilgore (03/2025 while inpt.) Chronic low back pain Panhypopituitarism Lumbosacral radiculopathy Toxic encephalopathy Chest pain hx Acute dyspnea hx Acute CHF hx Hypoglycemia hx Syncope and collapse Reason for loop recorder No recent issues since bed bound from femur fracture in Sep 2022 per patient Internal hemorrhoids Recurrent seizures (05/01/25) goes sometimes months without seizures, then may may have 2 in one day- last seizure- 05/01/25- grand mal, lost control of bowel and bladder- informed neuro, dr. villa- told to stay on meds (last saw dr. villa on tues 04/30/25) Pituitary diabetes insipidus Spondylolysis, lumbar region Right lumbar radiculopathy HTN (hypertension) Adrenal insufficiency Pituitary adenoma Hyperactive gag reflex BRCA gene positive tested positive in Aug 2023 [place] Family history of BRCA gene mutation PTSD (post-traumatic stress disorder) Epidural lipomatosis Chronic left sacroiliac pain Benzodiazepine overdose hx Presence of cardiac device Loop recorder > placed at [facility]- last checked fall 2023 Hx of fracture of foot Sep 2022- right > cast since removed > still gets painful Fracture of fibula, right, closed Cerebral concussion May 2023 during seizure > no further issues Orthostatic hypotension Sensorineural hearing loss of both ears Rectal bleeding on occasion History of COVID-19 10/2021 - fatigue; resolved. Mitral valve regurgitation follows with Dr. kilgore Vertigo Lower extremity edema Elevated LFTs Bilateral hand pain Pituitary neoplasm Dx'ed in 2001- s/p surgical resection and XRT Repeat surgery in 2018 secondary to tumor regrowth at [facility] Prostate mass benign Bladder mass benign Surgical History Presence of Watchman left atrial appendage closure device (02/2024) eric History of arthroplasty of left knee (2014) S/P TURP (status post transurethral resection of prostate) History of lumbar fusion (07/2022) [facility] Jul 2022 History of cardiac cath (07/2021) 07/2021 - no stents- no [facility]- follows with dr. kilgore S/P epidural steroid injection History of lithotripsy Status post right foot surgery replaced 5th metatarsal--hardware in place History of bladder surgery remove mass History of prostate surgery (2017) remove mass- not malignant History of colonoscopy History of esophagogastroduodenoscopy (EGD) History of tooth extraction History of wisdom tooth extraction History of brain surgery x2---[place] @ [facility] [place] @ [facility]--for brain tumors > caused epilepsy Family History Grandmother (Paternal) Family history of diabetes mellitus Aunt Family history of diabetes mellitus Uncle Family history of diabetes mellitus Father Prostate cancer Heart disease Osteoarthritis Mother Cardiac disorder Grandmother (Maternal) Myocardial infarction Other Asthma Cancer Hypertension No family history of adverse response to anesthesia No family history of bleeding disorder Stroke Denies family history of Ovarian cancer Breast cancer Colorectal cancer Social History Smoking Status: Never smoker Tobacco Type: Smokeless Tobacco (Dip or Chew) Second Hand Exposure: No; Do You Dip or Chew Tobacco: Yes; Hx Alcohol Use: No Hx Substance Use: No Preferred Language: Arabic Communication Ability: Effective Communication Ability Comment: Unable to obtain due to patient condition. Visual Impairment: Limited Hearing Ability: Normal Template Storage Clerk Required: No Beliefs That Will Affect Care: Episcopal marital status: Single Current Living Situation: Spouse Current Living Situation Comment: and daughter in [place] current occupational status: disabled How many Children do You have: 3 How many Children do You have Comment: able to assist with care if needed Feels Safe at Home: Yes Childhood Exposure to Second-Hand Smoke: Yes (parents smoked) Diet: regular Diet Comment: going to be starting low carb/low calorie diet. caffeine: No (1/2 20 oz bottle of mountain dew. ) during the past year weight has: increased > 10 lbs Physical Activity Frequency: Daily Physical Activity Frequency Comment: walking, 1.5 miles daily. Seatbelt Use: always Do you think of yourself as: straight/heterosexual Gender Identity: Male Assistive Devices: Cane and Walker Review of Systems Review of Systems: As per HPI Physical Exam Physical Exam: GENERAL: AAOx3, afebrile, uncomfortable, NAD HEAD: AT, NC EYES: EOM intact, ANNA CHEST: symmetric chest expansions with respirations CARDIO: RRR, no r/m/g PULMONARY: CTA bilaterally, normal respiratory effort, no respiratory distress GI: tenderness to palpation in suprapubic region, mildly distended, normal bowel sounds, no peritoneal signs EXTREMITIES: no swelling or calf tenderness to palpation SKIN: no rashes Results & Data Results & Data Vital Signs (Past 12 Hours) Vital Signs Temp Pulse Pulse Resp BP BP Pulse Ox 05/03/25 23:05 98 H 22 180/109 H 94 05/03/25 22:00 91 H 16 179/100 H 100 05/03/25 20:34 97 H 16 161/106 H 99 05/03/25 20:01 101 H 05/03/25 19:39 36.6 C 105 H 18 159/96 H 99 O2 Del Method O2 Flow Rate 05/03/25 23:05 Room Air 4 05/03/25 22:00 Nasal Cannula 4 05/03/25 20:34 Nasal Cannula 4 05/03/25 20:01 05/03/25 19:39 Nasal Cannula Supervising Physician Co-Signing Physician Notes I personally saw and examined the patient. I independently reviewed the labs, EKG, imaging, problem list, medication list, past medical history and family history. I verified all tinoco points and agree with resident physician Dr Angela Bernal MD with the following exceptions and/or additions: 54 year old male presents to the ER with worsening flank pain with hematuria as advised by urology following recent admission for b/l nephrolithiasis w/ ob structing stone on right side and possible subsequent sepsis although subsequent cultures negative with right stent placement and plan for upcoming urologic procedure on (05/09/25). Pain has been present since discharge but progressively getting worse. O/E HS RRR, no murmurs, Chest CTAB, Abdo SNT, bilateral CVA tenderness A/P Bilateral Kidney Stones Stent placed on right side, may need to stay as inpatient for stent removal as pain sets of his PNES. Consult urology. Hematuria - suspect secondary to stent, place on antibiotics pending urine culture, hold eliquis Resident Activity Tracking Resident Involvement: Resident Care Provided Care Provided: Adult [facility] Medicine
[2025-05-03] MEDS ORDERED: CARBOHYDRATES FOR HYPOGLYCEMIA PO PRN (23:23)
[2025-05-03] MEDS ORDERED: DEXTROSE 50% 50 ML SYRINGE IV PRN (23:23)
[2025-05-03] MEDS ORDERED: GLUCOSE 40% GEL 15 GM TUBE PO PRN (23:23)
[2025-05-03] MEDS ORDERED: GLUCOSE 10 TAB/TUBE PO PRN (23:23)
[2025-05-03] MEDS ORDERED: GLUCAGON FOR INJ 1 MG VIAL SQ PRN (23:23)
[2025-05-04] MEDS ORDERED: POLYETHYLENE (MIRALAX) 17 GM PACK PO PRN (01:16)
[2025-05-04] MEDS ORDERED: HYDROmorphone INJ 1 MG/ML SYRINGE IV PRN (01:16)
[2025-05-04] MEDS ORDERED: ALBUTEROL HFA 8 GM INHALER INH PRN (01:16)
[2025-05-04] MEDS ORDERED: ONDANSETRON INJ 2 MG/ML 2 ML VIAL IV PRN (01:16)
[2025-05-04] MEDS ORDERED: HYDROmorphone INJ 0.5 MG/0.5 ML SYR IV PRN (01:16)
[2025-05-04] MEDS ORDERED: ALBUT/IPRATROP 3MG/0.5MG NEB 3 ML VIAL NEB PRN (02:06)
[2025-05-04] MEDS: SODIUM CHLORIDE 0.9% 1,000 ML IV SCH (02:07)
[2025-05-04] MEDS: cefTRIAXone SODIUM 2,000 MG/50 ML BAG IV SCH (02:07)
[2025-05-04] MEDS: TAMSULOSIN HCL 0.4 MG CAP PO ONE (02:10)
[2025-05-04] MEDS: ACETAMINOPHEN 500 MG TAB PO SCH ×2 (02:10→20:36)
[2025-05-04] MEDS ORDERED: DIVALPROEX DELAY RELEASE 500 MG TAB PO SCH ×2 (02:30→09:00)
[2025-05-04] MEDS: ACETAMINOPHEN 1,000 MG/100 ML VIAL IV SCH (02:55)
[2025-05-04] MEDS: LACOSAMIDE 50 MG TABLET PO SCH ×2 (03:04→10:04)
[2025-05-04] MEDS: levETIRAcetam 500 MG TAB PO SCH ×2 (03:04→10:03)
[2025-05-04] MEDS: LORazepam 2 MG/1 ML VIAL ONE ×2 (04:34→05:30)
--- NOTE | 2025-05-04 04:41 | Communication Note ---
Date of Service: May 04, 2025 Code jeramie called after patient started having seizure-like activity. RN was at bedside when lower extremities started to shake, patient was still able to respond to questions at this time and had told the nurse this sometimes precedes him having a seizure. Shortly after, patient stopped answering questions and started to have whole body jerking movements. Patient unable to respond to questions during this time. Arrived at bedside and patient was having this seizure-like activity but shortly after, jerking stopped w/o administration of Ativan. RN states that entire episode may have lasted around 3 minutes. After episode ended, patient was looking around the room dazed and still not answering questions. Checked bsg at this time and was found to be 77. A few minutes after this initial episode, patient's eyes rolled back and started to have whole body jerking movements with clenched hands and teeth, was grunting, and not answering questions. Ativan 2 mg IV given and seizure-like activity stopped. This episode lasted ~30 seconds. Patient looking around room and not answering questions or responding when called, and not following commands. After 30-35 minutes, patient was asked to give a thumbs up and relax his hands and he followed these direction, still not answering questions but eyes now following people across the room. VS at the t tim with BP 140s over 90s, tachycardia of 112, and oxygen saturation of 94% with NC at 4lpm. Repeat episode occurred 40-45 minutes after previous one. Lasted for ~25 seconds with same presentation as that described above. Given Ativan IV 2 mg and seizure-activity stopped. On re-evaluation, patient is asleep and in NAD. VSS. Resident Activity Tracking Resident Involvement: Resident Care Provided Care Provided: Adult Hospital Medicine
[2025-05-04] MEDS: LEVOTHYROXINE SODIUM 150 MCG TABLET PO SCH (05:31)
[2025-05-04] MEDS: INSULIN ASPART PER UNIT CHARGE SC SCH ×2 (06:44→17:38)
[2025-05-04] MEDS ORDERED: FORMOTEROL 20 MCG/2 ML VIAL NEB SCH (07:00)
[2025-05-04 07:23] LABS: Basophils # (auto) 0.05 K/uL (0.00-0.20); Basophils % (auto) 0.6 %; Eosinophils # (auto) 0.14 K/uL (0.00-0.50); Eosinophils % (auto) 1.7 %; Hematocrit (blood only) 33.8 % (42.0-52.0); Hemoglobin 11.3 g/dl (14.0-18.0); Immature Granulocytes # (auto) 0.09 K/uL (0.01-0.20); Immature Granulocytes % (auto) 1.1 %; Lymphocytes # (auto) 2.78 K/uL (1.20-3.40); Lymphocytes % (auto) 33.8 %; Mean Corpuscular Hgb Conc 33.4 g/dL (32.0-36.0); Mean Corpuscular Volume 86.7 fL (80.0-100.0); Mean Platelet Volume 8.6 fL (9.4-12.4); Monocytes # (auto) 0.93 K/uL (0.11-0.59); Monocytes % (auto) 11.3 %; Neutrophils # (auto) 4.23 K/uL (1.40-6.50); Neutrophils % (auto) 51.5 %; Platelet Count 184 K/uL (130-400); RDW Coefficient of Variation 13.8 % (11.5-14.5); RDW Standard Deviation 43.3 fL (36.4-46.3); White Blood Count 8.22 K/ul (4.8-10.8)
[2025-05-04] MEDS: FORMOTEROL 20 MCG/2 ML VIAL INH SCH (07:27)
[2025-05-04 07:39] LABS: BUN Creatinine Ratio 11.7 (10-20); Calcium 8.8 mg/dl (8.6-10.3); Creatinine Clr Calc Pharmacy 136.7 ml/min; Potassium 3.7 mmol/L (3.5-5.1)
[2025-05-04] MEDS ORDERED: levETIRAcetam 500 MG TAB PO SCH (09:00)
[2025-05-04] MEDS ORDERED: LACOSAMIDE 50 MG TABLET PO SCH (09:00)
[2025-05-04] MEDS: levETIRAcetam 500 MG/5 ML VIAL IV STA (09:43)
--- NOTE | 2025-05-04 09:56 | Hospitalist Progress Note ---
Date of Service May 04, 2025 Assessment & Plan (1) Kidney stones: (2) COPD (chronic obstructive pulmonary disease): (3) Presence of Watchman left atrial appendage closure device: (4) Pseudoseizures: (5) Hypothyroidism: (6) Bipolar disorder: (7) Pituitary hypogonadism: (8) Chronic adrenal insufficiency: (9) CKD (chronic kidney disease), stage III: (10) Obesity: (11) Atrial fibrillation: (12) Panhypopituitarism: Plan 54-year-old male with past medical history of COPD/CORINA on oxygen via nasal cannula, noncompliant with CPAP, type 2 diabetes mellitus, morbid obesity, pseudoseizures, bipolar disorder, 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 #Bilateral kidney stones #Right ureteric stent in place #BPH Continue IV ceftriaxone Follow-up urine culture Continue Flomax Await urology consult and recommendations #Pseudoseizures versus seizures Patient had multiple episodes overnight for which she has received 4 mg of IV Ativan Neurology consulted: Await neurology consult and recommendations Seizure precautions Switch oral antiepileptics to IV given patient's mentation at this point IV lacosamide, IV Keppra, IV Depakote #COIRNA noncompliant with CPAP #COPD - Uses home oxygen 2 lpm at rest and 4 lpm with activity - Continue home inhalers and prn neb #History of CVA #Nonobstructive coronary disease # Paroxysmal atrial fibrillation status post watchman's #Chronic diastolic congestive heart failure with preserved ejection fraction #Essential hypertension Continue aspirin plus Plavix plus Crestor plus Toprol-XL 25 mg daily Entering patient's records, no history of PE/DVT and unclear why patient was also getting apixaban when he has a watchman's device Will stop apixaban Telemetry monitoring shows sinus rhythm Reduce lisinopril to 20 mg daily with hold parameters I/O monitoring Daily weights Monitor vital signs #Panhypopituitarism #Hypothyroidism 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 daily Continue desmopressin twice daily Continue home dose of hydrocortisone 20 mg every morning and 10 mg every af ternoon Monitor sodium level and electrolytes #Type 2 diabetes mellitus A1c is 6.0 Pharmacy consult for glycemic control #Bipolar disorder Continue lithium, mirtazapine, prazosin, propranolol, Effexor, trazodone and aripiprazole #Chronic low back pain Avoid opiates Tylenol as needed Continue duloxetine #Morbid obesity BMI is 36.7 Outpatient follow-up with PCP CODE STATUS: DNR/DNI DVT prophylaxis: Bilateral SCD Discharge planning: Will order PT/OT for discharge recommendations Admission and Anticipated Discharge Date Admission Date: May 03, 2025 Subjective Patient seen and examined H&P reviewed Labs reviewed Patient somnolent and lethargic: Received 4 mg of Ativan overnight for suspected seizures He is responding to sternal rubs but not to verbal stimuli Vital signs are stable Physical Exam Physical Exam: General: No acute distress Psych: Somnolent and lethargic HEENT: Anicteric sclera CVS: Regular rate and rhythm Lungs: Bilateral air entry, no wheezing noted Abdomen: Soft, nontender, no rebound, no guarding Ext: No lower extremity edema, no calf tenderness Neuro: Unable to do neurological exam at this point due to patient's mentation, not following commands Results & Data Results & Data Vital Signs (Past 12 Hours) Vital Signs Temp Pulse Pulse Resp BP BP Pulse Ox 05/04/25 08:51 36.3 C L 97 H 20 145/84 H 98 05/04/25 08:00 05/04/25 07:57 105 H 05/04/25 07:37 36.7 C 98 H 24 145/80 H 100 05/04/25 07:30 106 H 16 97 05/04/25 05:40 107 H 126/83 95 05/04/25 05:22 112 H 18 141/98 H 94 05/04/25 03:46 90 05/04/25 03:42 36.5 C 91 H 18 148/92 H 98 05/04/25 02:15 05/04/25 01:19 153/96 H 05/04/25 00:30 88 20 153/88 H 95 05/04/25 00:00 93 H 18 152/100 H 100 05/04/25 00:00 91 H 05/03/25 23:30 91 H 19 164/94 H 100 05/03/25 23:05 98 H 22 180/109 H 94 05/03/25 22:00 91 H 16 179/100 H 100 O2 Del Method O2 Flow Rate 05/04/25 08:51 Nasal Cannula 3 05/04/25 08:00 Nasal Cannula 3 05/04/25 07:57 05/04/25 07:37 Nebulizer 05/04/25 07:30 Nasal Cannula 3 05/04/25 05:40 Nasal Cannula 3 05/04/25 05:22 Nasal Cannula 4 05/04/25 03:46 05/04/25 03:42 Nasal Cannula 2 05/04/25 02:15 Nasal Cannula, BiPAP 2 05/04/25 01:19 05/04/25 00:30 05/04/25 00:00 05/04/25 00:00 05/03/25 23:30 05/03/25 23:05 Room Air 4 05/03/25 22:00 Nasal Cannula 4 Laboratory Results Laboratory Results - last 24 hr 05/03/25 05/03/25 05/03/25 19:49 20:05 22:00 WBC 9.70 RBC 4.43 L Hgb 13.0 L Hct 38.6 L MCV 87.1 MCH 29.3 MCHC 33.7 RDW Std Deviation 43.8 RDW Coeff of [place] 13.7 Plt Count 225 MPV 8.4 L Immature Gran % (Auto) 1.2 Neut % (Auto) 59.2 Lymph % (Auto) 30.4 [place] % (Auto) 7.7 Eos % (Auto) 1.0 Baso % (Auto) 0.5 Neut # (Auto) 5.73 Lymph # (Auto) 2.95 [place] # (Auto) 0.75 H Eos # (Auto) 0.10 Baso # (Auto) 0.05 Immature Gran # (Auto) 0.12 Sodium 145 Potassium 3.7 Chloride 107 Carbon Dioxide 29 Anion Gap 9 BUN 7 Creatinine 0.81 Est Cr Clr Drug Dosing 128.2 eGFR 103.48 BUN/Creatinine Ratio 8.6 L Glucose 114 H POC Glucose Lactate 2.4 H* 1.5 Calcium 10.1 Total Bilirubin 0.3 AST 42 H ALT 52 Alkaline Phosphatase 65 Total Protein 6.8 Albumin 4.3 Globulin 2.5 Albumin/Globulin Ratio 1.7 Procalcitonin < 0.02 Urine Color Red Urine Appearance Clear Urine pH 7.5 Ur Specific [place] 1.006 Urine Protein 2+ H Urine Glucose (UA) Negative Urine Ketones Negative Urine Blood 3+ H Urine Nitrite Negative Urine Bilirubin Negative Urine Urobilinogen Negative Ur Leukocyte Esterase 2+ H Urine WBC (Auto) 11-20 H Urine RBC (Auto) >20 H U Hyaline Cast (Auto) 0-2 U Epithel Cells (Auto) 0-2 Urine Bacteria (Auto) None Seen Urine Comment [place] 05/04/25 05/04/25 05/04/25 01:30 04:34 06:42 WBC RBC Hgb Hct MCV MCH MCHC RDW Std Deviation RDW Coeff of [place] Plt Count MPV Immature Gran % (Auto) Neut % (Auto) Lymph % (Auto) [place] % (Auto) Eos % (Auto) Baso % (Auto) Neut # (Auto) Lymph # (Auto) [place] # (Auto) Eos # (Auto) Baso # (Auto) Immature Gran # (Auto) Sodium Potassium Chloride Carbon Dioxide Anion Gap BUN Creatinine Est Cr Clr Drug Dosing eGFR BUN/Creatinine Ratio Glucose POC Glucose 90 77 89 Lactate Calcium Total Bilirubin AST ALT Alkaline Phosphatase Total Protein Albumin Globulin Albumin/Globulin Ratio Procalcitonin Urine Color Urine Appearance Urine pH Ur Specific [place] Urine Protein Urine Glucose (UA) Urine Ketones Urine Blood Urine Nitrite Urine Bilirubin Urine Urobilinogen Ur Leukocyte Esterase Urine WBC (Auto) Urine RBC (Auto) U Hyaline Cast (Auto) U Epithel Cells (Auto) Urine Bacteria (Auto) Urine Comment [place] 05/04/25 06:56 WBC 8.22 RBC 3.90 L Hgb 11.3 L Hct 33.8 L MCV 86.7 MCH 29.0 MCHC 33.4 RDW Std Deviation 43.3 RDW Coeff of [place] 13.8 Plt Count 184 MPV 8.6 L Immature Gran % (Auto) 1.1 Neut % (Auto) 51.5 Lymph % (Auto) 33.8 [place] % (Auto) 11.3 Eos % (Auto) 1.7 Baso % (Auto) 0.6 Neut # (Auto) 4.23 Lymph # (Auto) 2.78 [place] # (Auto) 0.93 H Eos # (Auto) 0.14 Baso # (Auto) 0.05 Immature Gran # (Auto) 0.09 Sodium 147 H Potassium 3.7 Chloride 112 H Carbon Dioxide 28 Anion Gap 7 BUN 9 Creatinine 0.77 Est Cr Clr Drug Dosing 136.7 eGFR 105.07 BUN/Creatinine Ratio 11.7 Glucose 96 POC Glucose Lactate Calcium 8.8 Total Bilirubin AST ALT Alkaline Phosphatase Total Protein Albumin Globulin Albumin/Globulin Ratio Procalcitonin Urine Color Urine Appearance Urine pH Ur Specific [place] Urine Protein Urine Glucose (UA) Urine Ketones Urine Blood Urine Nitrite Urine Bilirubin Urine Urobilinogen Ur Leukocyte Esterase Urine WBC (Auto) Urine RBC (Auto) U Hyaline Cast (Auto) U Epithel Cells (Auto) Urine Bacteria (Auto) Urine Comment [place] Pending PG Care Time/CCT Total # of Minutes Spent Total Time Spent with Patient: Total time spent is greater than 50% in coordination of care (as documented) at patient's floor/unit and/or counseling patient: Coding Level of Care Code 37236 SUB INP/OBS CARE 3/50MIN Diagnoses Kidney stones N20.0 COPD (chronic obstructive pulmonary disease) J44.9 Presence of Watchman left atrial appendage closure device Z95.818 Pseudoseizures R56.9 Hypothyroidism E03.9 Bipolar disorder F31.9 Pituitary hypogonadism E23.0 Chronic adrenal insufficiency E27.40 CKD (chronic kidney disease), stage III N18.30 Obesity E66.9 Atrial fibrillation I48.91 Atrial fibrillation type: unspecified Panhypopituitarism E23.0 (11) Atrial fibrillation Atrial fibrillation type: unspecified Qualified Code(s): I48.91 - Unspecified atrial fibrillation
--- NOTE | 2025-05-04 09:57 | Urology Consultation ---
Date of Consultation May 04, 2025 Assessment & Plan (1) Bilateral nephrolithiasis: (2) Acute flank pain: Plan 54-year-old male with right ureteral stent in place due to previously right obstructing stone. CT scan had previously demonstrated nonobstructing stone in the left kidney and there is no new hydronephrosis on ultrasound to suggest this has changed. With his recent overnight seizure activity, I would hold off on stone treatment as it appears that everything is draining well at this time. Agree with urine culture which is currently pending. Would defer to medicine team regarding further evaluation of seizure and comorbidities. Urology will follow along, pending clinical course potentially we could treat his stone while he is here in the hospital. History of Present Illness Reason for Consultation: Nephrolithiasis Attending Physician: Kam Miller MD History of Present Illness This is a 54-year-old male previously seen by urology for nephrolithiasis. He underwent cystoscopy and right ureteral stent placement on 04/06/2025 due to an obstructing stone and concern for urinary tract infection. He has significant medical comorbidities including seizure disorder, Adrenal insufficiency, asthma/COPD, type 2 diabetes. He had been seen in the urology office on 04/26/2025 and the plan was made for cystoscopy and ureteroscopy with stone removal as an outpatient. Due to worsening pain, he presented to the emergency department on 05/03/2025. Workup in the ED demonstrated no leukocytosis (WBC 9.7). Creatinine was 0.81 and glucose was 114. Urinalysis demonstrated 2+ leukocyte esterase, 11-20 WBC/hpf, no bacteria. He had a renal ultrasound performed on 05/03/2025. I independently reviewed these images. I do not appreciate any hydronephrosis of either kidney. His right ureteral stent looks to be in good position. He was admitted for pain control. Overnight he had code purple called due to seizure activity. He was treated with Ativan although had a second episode later as well. This morning he remains somnolent and could not provide any contributory history. Allergies Allergy/AdvReac Type Severity Reaction Status Date / Time clindamycin Allergy Intermediate SWELLING Verified 05/03/25 22:08 Iodinated Contrast Media Allergy Intermediate face/eye Verified 05/03/25 22:08 swelling Quinolones Allergy Intermediate HIVES Verified 05/03/25 22:08 tomato AdvReac Unknown Unknown Verified 05/03/25 22:08 Home Medications Medication Instructions Recorded Confirmed Type lithium carbonate 300 mg tablet 300 mg PO AMHS 06/04/22 05/03/25 History mirtazapine 30 mg tablet (Remeron) 30 mg PO HS 06/23/22 05/03/25 History fluticasone propionate 50 1 spray intranasal HS PRN allergy 03/16/23 05/03/25 Rx mcg/actuation nasal symptoms #16 grams spray,suspension (Flonase Allergy Relief) FreeStyle Rosalie 2 [place] (flash #1 ea 05/13/23 05/02/25 Rx glucose scanning reader) blood sugar diagnostic (QoofTouch #150 ea 11/22/23 05/02/25 Rx Verio test strips) blood-glucose meter (QoofTouch #1 ea 11/22/23 05/02/25 Rx Verio Reflect Meter) insulin syringe-needle U-100 1 mL #300 ea 11/22/23 05/02/25 Rx 30 gauge x 1/2" (BD Insulin Syringe Ultra-Fine) lancets 33 gauge (QoofTouch Delica #150 ea 11/22/23 05/02/25 Rx Plus Lancet) albuterol sulfate 90 mcg/actuation 2 inh inhalation Q6H PRN shortness 02/24/24 05/03/25 Rx aerosol inhaler (Ventolin HFA) of breath or wheezing #6.7 grams dutasteride 0.5 mg capsule 0.5 mg PO QAM 04/06/24 05/03/25 History glucagon 3 mg/actuation nasal 3 mg intranasal ONCE PRN Severe 04/06/24 05/03/25 History spray (Baqsimi) Hypoglycemia FreeStyle Rosalie 2 Sensor (flash #6 ea 05/02/24 05/02/25 Rx glucose sensor) aripiprazole 5 mg tablet 5 mg PO QAM 05/29/24 05/03/25 History insulin glargine 100 unit/mL (3 12 unit subcut HS 07/19/24 05/03/25 History mL) subcutaneous pen (Lantus Solostar U-100 Insulin) ipratropium 0.5 mg-albuterol 3 mg 3 ml inhalation QID PRN wheezing 07/31/24 05/03/25 Rx (2.5 mg base)/3 mL nebulization #90 mL soln nebulizers (Compact Compressor #1 ea 07/31/24 05/02/25 Rx Nebulizer) Botox 200 unit injection See Rx Instructions IM .COMPLEX #1 09/18/24 05/03/25 Rx (onabotulinumtoxinA) ea rosuvastatin 20 mg tablet 20 mg PO QAM #90 tabs 09/19/24 05/03/25 Rx pantoprazole 40 mg tablet,delayed 40 mg PO BID #60 tabs 09/21/24 05/03/25 Rx release trazodone 100 mg tablet 100 mg PO HS 10/03/24 05/03/25 History pen needle, diabetic 32 gauge x #100 ea 10/23/24 05/02/25 Rx 5/32" (BD Vy 2nd Gen Pen Needle) bumetanide 1 mg tablet 1 mg PO QAM #30 tabs 10/26/24 05/03/25 Rx vitamin B complex (Vitamins B 1 cap PO QAM #30 caps 10/26/24 05/03/25 Rx Complex capsule) lorazepam 0.5 mg tablet 0.5 mg PO DAILY PRN Seizure 11/23/24 05/03/25 History Activity levetiracetam 1,000 mg tablet 1,000 mg PO Q12H #60 tabs 11/26/24 05/03/25 Rx ferrous sulfate 325 mg (65 mg 325 mg PO Q OTHER DAY 11/27/24 05/03/25 History iron) tablet desmopressin 0.2 mg tablet 0.4 mg (2 x 0.2 mg) PO BID #120 11/30/24 05/03/25 Rx tabs metoprolol succinate 25 mg 25 mg PO HS #90 tabs 11/30/24 05/03/25 Rx tablet,extended release 24 hr somatropin 5 mg/1.5 mL (3.3 mg/mL) 0.3 mg (0.09 mL) subcut QPM #2 11/30/24 05/03/25 Rx subcutaneous pen injector syringes (Norditropin FlexPro) clopidogrel 75 mg tablet (Plavix) 75 mg PO QPM 12/03/24 05/03/25 History lacosamide 150 mg tablet 150 mg PO BID #60 tabs 12/26/24 05/03/25 Rx arformoterol 15 mcg/2 mL solution 2 ml inhalation BID 01/16/25 05/03/25 History for nebulization (Brovana) oxybutynin chloride 5 mg 5 mg PO QAM 01/16/25 05/03/25 History tablet,extended release 24 hr Oxygen Home 01/30/25 05/02/25 History metformin 1,000 mg tablet 1,000 mg PO BID #180 tabs 02/26/25 05/03/25 Rx rimegepant 75 mg disintegrating 75 mg PO DAILY PRN Migraine 02/28/25 05/03/25 Rx tablet (Nurtec ODT) Headache #16 tabs magnesium oxide 400 mg (241.3 mg 400 mg PO DAILY 03/01/25 05/03/25 History magnesium) tablet potassium chloride 10 mEq 10 meq PO QPM 03/01/25 05/03/25 History tablet,extended release testosterone 2 pump topical PM #75 grams 03/18/25 05/03/25 Rx nystatin 100,000 unit/gram topical 1 applic topical BID PRN Other 03/19/25 05/03/25 History cream quetiapine 50 mg tablet,extended 50 mg PO QAM 03/19/25 05/03/25 History release 24 hr venlafaxine 150 mg 150 mg PO QAM 03/19/25 05/03/25 History capsule,extended release 24 hr formoterol fumarate 20 mcg/2 mL 20 mcg (2 mL) NEB BIDR #60 vials 03/24/25 05/03/25 Rx solution for nebulization (Perforomist) levothyroxine 150 mcg tablet 150 mcg PO DAILYBB #30 tabs 03/24/25 05/03/25 Rx (Synthroid) acetylcysteine 200 mg/mL (20 %) 2 ml inhalation BID PRN Chest 03/26/25 05/03/25 Rx solution congestion #100 mL cholecalciferol (vitamin D3) 50 50 mcg PO QPM #90 caps 03/26/25 05/03/25 Rx mcg (2,000 unit) capsule propranolol 120 mg capsule,24 120 mg PO HS 03/26/25 05/03/25 History hr,extended release sodium chloride 7 % for 1 inh inhalation BID #240 mL 03/26/25 05/03/25 Rx nebulization tiotropium bromide 2.5 2 puff inhalation DAILY #4 grams 03/26/25 05/03/25 Rx mcg/actuation mist for inhalation (Spiriva Respimat) apixaban 5 mg tablet (Eliquis) 5 mg PO Q12H #180 tabs 04/01/25 05/03/25 Rx prazosin 5 mg capsule 5 mg PO HS 04/05/25 05/03/25 History ramelteon 8 mg tablet 8 mg PO HS 04/05/25 05/03/25 History venlafaxine 75 mg capsule,extended 75 mg PO QAM 04/05/25 05/03/25 History release 24 hr duloxetine 30 mg capsule,delayed 30 mg PO HS #30 caps 04/12/25 05/03/25 Rx release ondansetron 8 mg disintegrating 8 mg PO Q8H PRN nausea and 04/29/25 05/03/25 Rx tablet vomiting #30 tabs phenazopyridine 200 mg tablet 200 mg PO TID #9 tabs 04/29/25 05/03/25 Rx (Pyridium) aspirin 81 mg capsule 81 mg PO QPM 05/03/25 05/03/25 History budesonide 0.5 mg/2 mL suspension 0.5 mg inhalation QPM 05/03/25 05/03/25 History for nebulization divalproex 500 mg tablet,delayed 1,000 mg PO QAM 05/03/25 05/03/25 History release duloxetine 60 mg capsule,delayed 60 mg PO QAM 05/03/25 05/03/25 History release famotidine 20 mg tablet (Acid 20 mg PO QAM 05/03/25 05/03/25 History Breeding Technician (famotidine)) hydrocortisone 10 mg tablet 10 - 20 mg PO UD 05/03/25 05/03/25 History lisinopril 40 mg tablet 40 mg PO QAM 05/03/25 05/03/25 History oxycodone-acetaminophen 5 mg-325 1.5 tab PO Q6H PRN pain (scale 05/03/25 05/03/25 History mg tablet (Percocet) score 7-10) tirzepatide 5 mg/0.5 mL 5 mg subcut WK 05/03/25 05/03/25 History subcutaneous pen injector Patient History Medical History (Updated 05/04/25 @ 02:03 by Angela Bernal MD) History of pneumonia (03/2025) states has been admitted for total of 36 days ytd at [facility] for pneumonia, last was approxl 1 month ago Ocular hypertension Ulcerative colitis Mixed hyperlipidemia Lumbar stenosis with neurogenic claudication Idiopathic polyneuropathy Essential tremor Demyelinating disease Compartment syndrome of lower extremity (02/2025) per hx Chronic venous insufficiency Back pain at L4-L5 level Arthralgia Depression with anxiety Hx of fall (11/2024) History of dysphagia Hematuria On home O2 4 L nc History of recent hospitalization states has been in hospital 36 days this year so far with pneumonia- last was approx 1 month ago Sepsis Pyelonephritis Urinary tract obstruction due to kidney stone Lactic acidosis LPRD (laryngopharyngeal reflux disease) Severe obesity (BMI 35.0-35.9 with comorbidity) Uncontrolled type 2 diabetes mellitus with hyperglycemia Suspect low glycation index meaning his A1c is typically about 2 points lower than what his average glucose would suggest. Hypothyroidism Hypertension Non-occlusive coronary artery disease Acute dehydration hx Witnessed seizure-like activity Nonepileptic episode Chronic narcotic dependence COPD with exacerbation (03/2025) follows with dr. mccarthy (last seen while in hospital at [facility] with pneumonia ~) Anti-cyclic citrullinated peptide antibody positive Restrictive lung disease follows with dr. mccarthy, on O2 4L nc at all times Abnormal PFTs (pulmonary function tests) Bipolar disorder (10/11/22) Obstructive sleep apnea cpap 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 Follows with endocrinology- Secondary adrenal insufficiency Transient alteration of awareness Chronic adrenal insufficiency Leukocytosis Acute asthma exacerbation hx Acute on chronic hypoxic respiratory failure O2 4L nc Migraine Hematoma Growth hormone deficiency Diaphoresis hx Acute hypoxic respiratory failure hx Influenza A (12/2024) hx- Status epilepticus (09/13/24) Knee hemarthrosis, right (09/13/24) Acute on chronic anemia (09/13/24) Acute metabolic encephalopathy (09/13/24) hx Laceration of toe of right foot Closed fracture of right fibula with malunion Right fibular fracture hx Acute on chronic respiratory failure with hypoxia and hypercapnia Shortness of breath only if not wearing oxygen Chronic respiratory failure with hypoxia Obesity CKD (chronic kidney disease), stage III Peripheral edema Atrial fibrillation (02/15/24) no cardioversion- has loop recorder and watchmans device, follows with dr. kilgore (03/2025 while inpt.) Chronic low back pain Panhypopituitarism Lumbosacral radiculopathy Toxic encephalopathy Chest pain hx Acute dyspnea hx Acute CHF hx Hypoglycemia hx Syncope and collapse Reason for loop recorder No recent issues since bed bound from femur fracture in Sep 2022 per patient Internal hemorrhoids Recurrent seizures (05/01/25) goes sometimes months without seizures, then may may have 2 in one day- last seizure- 05/01/25- grand mal, lost control of bowel and bladder- informed neuro, dr. villa- told to stay on meds (last saw dr. villa on tu04/30/25) Pituitary diabetes insipidus Spondylolysis, lumbar region Right lumbar radiculopathy HTN (hypertension) Adrenal insufficiency Pituitary adenoma Hyperactive gag reflex BRCA gene positive tested positive in Aug 2023 [place] Family history of BRCA gene mutation PTSD (post-traumatic stress disorder) Epidural lipomatosis Chronic left sacroiliac pain Benzodiazepine overdose hx Presence of cardiac device Loop recorder > placed at [facility]- last checked fall 2023 Hx of fracture of foot Sep 2022- right > cast since removed > still gets painful Fracture of fibula, right, closed Cerebral concussion May 2023 during seizure > no further issues Orthostatic hypotension Sensorineural hearing loss of both ears Rectal bleeding on occasion History of COVID-19 10/2021 - fatigue; resolved. Mitral valve regurgitation follows with Dr. kilgore Vertigo Lower extremity edema Elevated LFTs Bilateral hand pain Pituitary neoplasm Dx'ed in 2001- s/p surgical resection and XRT Repeat surgery in 2018 secondary to tumor regrowth at [facility] Kidney stones currently causing severe pain Prostate mass benign Bladder mass benign Surgical History Presence of Watchman left atrial appendage closure device (02/2024) eric History of arthroplasty of left knee (2014) S/P TURP (status post transurethral resection of prostate) History of lumbar fusion (07/2022) [place] Jul 2022 History of cardiac cath (07/2021) 07/2021 - no stents- no ct - [facility]- follows with dr. kilgore S/P epidural steroid injection History of lithotripsy Status post right foot surgery replaced 5th metatarsal--hardware in place History of bladder surgery remove mass History of prostate surgery (2016) remove mass- not malignant History of colonoscopy History of esophagogastroduodenoscopy (EGD) History of tooth extraction History of wisdom tooth extraction History of brain surgery x2---2004 @ [facility] [place], 2018 @ [facility]--for brain tumors > caused epilepsy Family History Grandmother (Paternal) Family history of diabetes mellitus Aunt Family history of diabetes mellitus Uncle Family history of diabetes mellitus Father Prostate cancer Heart disease Osteoarthritis Mother Cardiac disorder Grandmother (Maternal) Myocardial infarction Other Asthma Cancer Hypertension No family history of adverse response to anesthesia No family history of bleeding disorder Stroke Denies family history of Ovarian cancer Breast cancer Colorectal cancer Social History Smoking Status: Never smoker Second Hand Exposure: No; Do You Dip or Chew Tobacco: No; Tobacco Cessation Education Requested by Patient: No Hx Alcohol Use: No Hx Substance Use: No Preferred Language: Croatian Communication Ability: Effective Communication Ability Comment: Unable to obtain due to patient condition. Visual Impairment: Limited Hearing Ability: Normal Party Plan Sales Unit Advisor Required: No Beliefs That Will Affect Care: None marital status: Single Current Living Situation: Spouse Current Living Situation Comment: and daughter in [place] current occupational status: disabled How many Children do You have: 3 How many Children do You have Comment: able to assist with care if needed Other Information That Helps Us Care for You: No Feels Safe at Home: Yes Safety Concerns: Feels Safe At This Time Childhood Exposure to Second-Hand Smoke: Yes (parents smoked) Diet: regular Diet Comment: going to be starting low carb/low calorie diet. caffeine: No (1/2 20 oz bottle of mountain dew. ) during the past year weight has: increased > 10 lbs Physical Activity Frequency: Daily Physical Activity Frequency Comment: walking, 1.5 miles daily. Seatbelt Use: always Do you think of yourself as: straight/heterosexual Gender Identity: Male Assistive Devices: Cane, Oxygen - Continuous and Walker Review of Systems Review of Systems: Unable to participate in review of systems due to mental status Physical Exam Physical Exam: Somnolent, reacts to stimuli however quickly goes back to sleep Results & Data Vital Signs (Past 12 Hours) Vital Signs Temp Pulse Pulse Resp BP BP Pulse Ox 05/04/25 08:51 36.3 C L 97 H 20 145/84 H 98 05/04/25 08:00 05/04/25 07:57 105 H 05/04/25 07:37 36.7 C 98 H 24 145/80 H 100 05/04/25 07:30 106 H 16 97 05/04/25 05:40 107 H 126/83 95 05/04/25 05:22 112 H 18 141/98 H 94 05/04/25 03:46 90 05/04/25 03:42 36.5 C 91 H 18 148/92 H 98 05/04/25 02:15 05/04/25 01:19 153/96 H 05/04/25 00:30 88 20 153/88 H 95 05/04/25 00:00 93 H 18 152/100 H 100 05/04/25 00:00 91 H 05/03/25 23:30 91 H 19 164/94 H 100 05/03/25 23:05 98 H 22 180/109 H 94 05/03/25 22:00 91 H 16 179/100 H 100 O2 Del Method O2 Flow Rate 05/04/25 08:51 Nasal Cannula 3 05/04/25 08:00 Nasal Cannula 3 05/04/25 07:57 05/04/25 07:37 Nebulizer 05/04/25 07:30 Nasal Cannula 3 05/04/25 05:40 Nasal Cannula 3 05/04/25 05:22 Nasal Cannula 4 05/04/25 03:46 05/04/25 03:42 Nasal Cannula 2 05/04/25 02:15 Nasal Cannula, BiPAP 2 05/04/25 01:19 05/04/25 00:30 05/04/25 00:00 05/04/25 00:00 05/03/25 23:30 05/03/25 23:05 Room Air 4 05/03/25 22:00 Nasal Cannula 4 PG Care Time/CCT Total # of Minutes Spent Total Time Spent with Patient: Total time spent is greater than 50% in coordination of care (as documented) at patient's floor/unit and/or counseling patient: Coding Level of Care Code 66798 IN/OBS CONSULT LVL 4,60M Diagnoses Bilateral nephrolithiasis N20.0 Acute flank pain R10.9
[2025-05-04] MEDS: PANTOprazole 40 MG TAB PO SCH (10:04)
[2025-05-04] MEDS: LITHIUM CARBONATE 300 MG TAB PO SCH (10:04)
[2025-05-04] MEDS: DESMOPRESSIN ACETATE 0.1 MG TAB PO SCH (10:05)
--- NOTE | 2025-05-04 12:25 | Neurology Consultation ---
Date of Consultation May 04, 2025 Assessment & Plan (1) Witnessed seizure-like activity: (2) Pseudoseizures: (3) Depression with anxiety: Plan This patient is challenging from a neurologic standpoint. He continues to have seizure-like activity and spells but most of these events are pseudoseizures. He has had multiple EEGs and monitoring without actual potentially epileptogenic activity. He is on 3 anticonvulsants. Patient has depression, anxiety, and bipolar disorder on multiple psychiatric medications including Abilify, duloxetine, lithium, mirtazapine, quetiapine, venlafaxine, and trazodone Every time he has an event that is lasting more than 30 seconds to a minute he gets Ativan. He received 4 mg of Ativan last night and despite that amount he is fairly alert, oriented and cooperative by noon time today. I am uncertain what to do for him from a neurologic standpoint since I cannot be sure he is or is not having seizures. We do not have any prolonged EEG monitoring here and routine EEGs have always been normal. We suspect pseudoseizures for all of these spells. He has had prolonged EEG monitoring with no seizure activity recorded. Many times he does not have events when he is on monitoring however. Recommendations: 1. It is reasonable to transfer to a Medical Center where he can have continuous EEG monitoring to sort out seizure versus pseudoseizure. He can get psychiatric input also (in dealing with pseudoseizures). 2. Check lacosamide, levetiracetam, and valproic acid levels. When they come back, I can adjust accordingly. All of these medicines can be given IV or p.o., But if given IV, I would give valproic acid 500 mg twice a day, instead of all at once. The others are already twice daily medicines. 3. I am not going to add a fourth anticonvulsant medicine. 4. Can consult psychiatry for their opinion on how to treat pseudoseizures in this patient on multiple psychiatric medications. Each time we done this consultation, however, we do not get any real specific treatment plan. 5. AVOID giving this patient Ativan for his spells-if you ask me, how then to treat the spells, I do not have a good answer. Neither benzodiazepines or anticonvulsants are the answer for pseudoseizures 6. I do not have any other neurologic recommendations to make at this time overall, I spent a total of 90 minutes with this case including review of records, direct evaluation the patient, report generation, and discussion of the case with the patient and at bedside, RN at bedside, and Dr. Miller putting differential diagnosis and treatment options. History of Present Illness Reason for Consultation: Patient is a 54-year-old, who I was asked to see at the request of Dr. Miller, for neurologic evaluation regarding seizures. Requesting Physician: Dr. Miller Attending Physician: Kam Miller MD History of Present Illness This is an extremely complicated patient from a neurologic standpoint insofar as how to properly deal with pseudoseizures (and not treat them like real seizures). I last saw this patient as an outpatient April 23. At that time he was stable and had an event 3 weeks previous. He has had 6 admissions this year to [facility]. The admission previous he had an event that was most likely a pseudoseizure. Psychiatry was consulted but they had no significant recommendations to make at that time. Most recent EEG was December of this year and was unremarkable/normal. 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 He has bipolar disorder and remote history of seizures. He has been at [facility] multiple times to try distinguish between seizures and pseudoseizures no seizure-like activity has been identified despite multiple testing prolonged and routine in the last 2 years. For seizures, he currently is on divalproex 1000 mg in the morning, lacosamide 150 mg twice a day, and levetiracetam 1000 mg twice a day. For his bipolar and other psychiatric conditions he takes venlafaxine 225 mg, trazodone 100 mg at bedtime, quetiapine ER 50 mg in the morning, mirtazapine 30 mg at bedtime, lithium 300 mg in the morning, duloxetine 30 mg at night and 60 mg in the morning, and aripiprazole 5 mg in the morning. He did not have any obvious extrapyramidal or other neurologic side effects to these medicines when I last saw him April 23. Patient follows with [facility] ([place]) as an outpatient (Dr. Woods). He has a history of migraine headaches helped with Botox to prevent headaches and Nurtec as needed. The patient was admitted May 03 with low back and acute flank pain likely bilateral nephrolithiasis. He is being followed by urology. He has had hematuria as well. Last night the patient had seizure-like activity starting with lower extremity shaking bilaterally but still be able to respond and talk. He then stopped talking and had whole body jerking movements and would not respond to questions. That event lasted 3 minutes. He then had a second episode and was given 2 milligrams of Ativan. That episode lasted 30 seconds. Another episode occurred 40 to 45 minutes after that episode and he was given 2 mg of Ativan. Had a total of 4 mg Ativan last night. Around noon the patient is awake and can follow commands and answer questions. He does seem a little sleepy. He has had no seizures today so far. He headache but does have low back and flank pain. He states he has "no control" over the events that he had last night. He tends to remember these events Allergies Allergy/AdvReac Type Severity Reaction Status Date / Time clindamycin Allergy Intermediate SWELLING Verified 05/03/25 22:08 Iodinated Contrast Media Allergy Intermediate face/eye Verified 05/03/25 22:08 swelling Quinolones Allergy Intermediate HIVES Verified 05/03/25 22:08 tomato AdvReac Unknown Unknown Verified 05/03/25 22:08 Home Medications Medication Instructions Recorded Confirmed Type lithium carbonate 300 mg tablet 300 mg PO AMHS 06/04/22 05/03/25 History mirtazapine 30 mg tablet (Remeron) 30 mg PO HS 06/23/22 05/03/25 History fluticasone propionate 50 1 spray intranasal HS PRN allergy 03/16/23 05/03/25 Rx mcg/actuation nasal symptoms #16 grams spray,suspension (Flonase Allergy Relief) FreeStyle Rosalie 2 [place] (flash #1 ea 05/13/23 05/02/25 Rx glucose scanning reader) blood sugar diagnostic (Hipui #150 ea 11/22/23 05/02/25 Rx Verio test strips) blood-glucose meter (Synterna Technologiesuch #1 ea 11/22/23 05/02/25 Rx Verio Reflect Meter) insulin syringe-needle U-100 1 mL #300 ea 11/22/23 05/02/25 Rx 30 gauge x 1/2" (BD Insulin Syringe Ultra-Fine) lancets 33 gauge (3TEN8 #150 ea 11/22/23 05/02/25 Rx Plus Lancet) albuterol sulfate 90 mcg/actuation 2 inh inhalation Q6H PRN shortness 02/24/24 05/03/25 Rx aerosol inhaler (Ventolin HFA) of breath or wheezing #6.7 grams dutasteride 0.5 mg capsule 0.5 mg PO QAM 04/06/24 05/03/25 History glucagon 3 mg/actuation nasal 3 mg intranasal ONCE PRN Severe 04/06/24 05/03/25 History spray (Baqsimi) Hypoglycemia FreeStyle Rosalie 2 Sensor (flash #6 ea 05/02/24 05/02/25 Rx glucose sensor) aripiprazole 5 mg tablet 5 mg PO QAM 05/29/24 05/03/25 History insulin glargine 100 unit/mL (3 12 unit subcut HS 07/19/24 05/03/25 History mL) subcutaneous pen (Lantus Solostar U-100 Insulin) ipratropium 0.5 mg-albuterol 3 mg 3 ml inhalation QID PRN wheezing 07/31/24 05/03/25 Rx (2.5 mg base)/3 mL nebulization #90 mL soln nebulizers (Compact Compressor #1 ea 07/31/24 05/02/25 Rx Nebulizer) Botox 200 unit injection See Rx Instructions IM .COMPLEX #1 09/18/24 05/03/25 Rx (onabotulinumtoxinA) ea rosuvastatin 20 mg tablet 20 mg PO QAM #90 tabs 09/19/24 05/03/25 Rx pantoprazole 40 mg tablet,delayed 40 mg PO BID #60 tabs 09/21/24 05/03/25 Rx release trazodone 100 mg tablet 100 mg PO HS 10/03/24 05/03/25 History pen needle, diabetic 32 gauge x #100 ea 10/23/24 05/02/25 Rx 5/32" (BD Vy 2nd Gen Pen Needle) bumetanide 1 mg tablet 1 mg PO QAM #30 tabs 10/26/24 05/03/25 Rx vitamin B complex (Vitamins B 1 cap PO QAM #30 caps 10/26/24 05/03/25 Rx Complex capsule) lorazepam 0.5 mg tablet 0.5 mg PO DAILY PRN Seizure 11/23/24 05/03/25 History Activity levetiracetam 1,000 mg tablet 1,000 mg PO Q12H #60 tabs 11/26/24 05/03/25 Rx ferrous sulfate 325 mg (65 mg 325 mg PO Q OTHER DAY 11/27/24 05/03/25 History iron) tablet desmopressin 0.2 mg tablet 0.4 mg (2 x 0.2 mg) PO BID #120 11/30/24 05/03/25 Rx tabs metoprolol succinate 25 mg 25 mg PO HS #90 tabs 11/30/24 05/03/25 Rx tablet,extended release 24 hr somatropin 5 mg/1.5 mL (3.3 mg/mL) 0.3 mg (0.09 mL) subcut QPM #2 11/30/24 05/03/25 Rx subcutaneous pen injector syringes (Norditropin FlexPro) clopidogrel 75 mg tablet (Plavix) 75 mg PO QPM 12/03/24 05/03/25 History lacosamide 150 mg tablet 150 mg PO BID #60 tabs 12/26/24 05/03/25 Rx arformoterol 15 mcg/2 mL solution 2 ml inhalation BID 01/16/25 05/03/25 History for nebulization (Brovana) oxybutynin chloride 5 mg 5 mg PO QAM 01/16/25 05/03/25 History tablet,extended release 24 hr Oxygen Home 01/30/25 05/02/25 History metformin 1,000 mg tablet 1,000 mg PO BID #180 tabs 02/26/25 05/03/25 Rx rimegepant 75 mg disintegrating 75 mg PO DAILY PRN Migraine 02/28/25 05/03/25 Rx tablet (Nurtec ODT) Headache #16 tabs magnesium oxide 400 mg (241.3 mg 400 mg PO DAILY 03/01/25 05/03/25 History magnesium) tablet potassium chloride 10 mEq 10 meq PO QPM 03/01/25 05/03/25 History tablet,extended release testosterone 2 pump topical PM #75 grams 03/18/25 05/03/25 Rx nystatin 100,000 unit/gram topical 1 applic topical BID PRN Other 03/19/25 05/03/25 History cream quetiapine 50 mg tablet,extended 50 mg PO QAM 03/19/25 05/03/25 History release 24 hr venlafaxine 150 mg 150 mg PO QAM 03/19/25 05/03/25 History capsule,extended release 24 hr formoterol fumarate 20 mcg/2 mL 20 mcg (2 mL) NEB BIDR #60 vials 03/24/25 05/03/25 Rx solution for nebulization (Perforomist) levothyroxine 150 mcg tablet 150 mcg PO DAILYBB #30 tabs 03/24/25 05/03/25 Rx (Synthroid) acetylcysteine 200 mg/mL (20 %) 2 ml inhalation BID PRN Chest 03/26/25 05/03/25 Rx solution congestion #100 mL cholecalciferol (vitamin D3) 50 50 mcg PO QPM #90 caps 03/26/25 05/03/25 Rx mcg (2,000 unit) capsule propranolol 120 mg capsule,24 120 mg PO HS 03/26/25 05/03/25 History hr,extended release sodium chloride 7 % for 1 inh inhalation BID #240 mL 03/26/25 05/03/25 Rx nebulization tiotropium bromide 2.5 2 puff inhalation DAILY #4 grams 03/26/25 05/03/25 Rx mcg/actuation mist for inhalation (Spiriva Respimat) apixaban 5 mg tablet (Eliquis) 5 mg PO Q12H #180 tabs 04/01/25 05/03/25 Rx prazosin 5 mg capsule 5 mg PO HS 04/05/25 05/03/25 History ramelteon 8 mg tablet 8 mg PO HS 04/05/25 05/03/25 History venlafaxine 75 mg capsule,extended 75 mg PO QAM 04/05/25 05/03/25 History release 24 hr duloxetine 30 mg capsule,delayed 30 mg PO HS #30 caps 04/12/25 05/03/25 Rx release ondansetron 8 mg disintegrating 8 mg PO Q8H PRN nausea and 04/29/25 05/03/25 Rx tablet vomiting #30 tabs phenazopyridine 200 mg tablet 200 mg PO TID #9 tabs 04/29/25 05/03/25 Rx (Pyridium) aspirin 81 mg capsule 81 mg PO QPM 05/03/25 05/03/25 History budesonide 0.5 mg/2 mL suspension 0.5 mg inhalation QPM 05/03/25 05/03/25 History for nebulization divalproex 500 mg tablet,delayed 1,000 mg PO QAM 05/03/25 05/03/25 History release duloxetine 60 mg capsule,delayed 60 mg PO QAM 05/03/25 05/03/25 History release famotidine 20 mg tablet (Acid 20 mg PO QAM 05/03/25 05/03/25 History Pensionholder Information Clerk (famotidine)) hydrocortisone 10 mg tablet 10 - 20 mg PO UD 05/03/25 05/03/25 History lisinopril 40 mg tablet 40 mg PO QAM 05/03/25 05/03/25 History oxycodone-acetaminophen 5 mg-325 1.5 tab PO Q6H PRN pain (scale 05/03/25 05/03/25 History mg tablet (Percocet) score 7-10) tirzepatide 5 mg/0.5 mL 5 mg subcut WK 05/03/25 05/03/25 History subcutaneous pen injector Patient History Medical History (Updated 05/04/25 @ 02:03 by Angela Bernal MD) History of pneumonia (03/2025) states has been admitted for total of 36 days ytd at [facility] for pneumonia, last was approxl 1 month ago Ocular hypertension Ulcerative colitis Mixed hyperlipidemia Lumbar stenosis with neurogenic claudication Idiopathic polyneuropathy Essential tremor Demyelinating disease Compartment syndrome of lower extremity (02/2025) per hx Chronic venous insufficiency Back pain at L4-L5 level Arthralgia Depression with anxiety Hx of fall (11/2024) History of dysphagia Hematuria On home O2 4 L nc History of recent hospitalization states has been in hospital 36 days this year so far with pneumonia- last was approx 1 month ago Sepsis Pyelonephritis Urinary tract obstruction due to kidney stone Lactic acidosis LPRD (laryngopharyngeal reflux disease) Severe obesity (BMI 35.0-35.9 with comorbidity) Uncontrolled type 2 diabetes mellitus with hyperglycemia Suspect low glycation index meaning his A1c is typically about 2 points lower than what his average glucose would suggest. Hypothyroidism Hypertension Non-occlusive coronary artery disease Acute dehydration hx Witnessed seizure-like activity Nonepileptic episode Chronic narcotic dependence COPD with exacerbation (03/2025) follows with dr. mccarthy (last seen while in hospital at [facility] with pneumonia ~) Anti-cyclic citrullinated peptide antibody positive Restrictive lung disease follows with dr. mccarthy, on O2 4L nc at all times Abnormal PFTs (pulmonary function tests) Bipolar disorder (10/11/22) Obstructive sleep apnea cpap 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 Follows with endocrinology- Secondary adrenal insufficiency Transient alteration of awareness Chronic adrenal insufficiency Leukocytosis Acute asthma exacerbation hx Acute on chronic hypoxic respiratory failure O2 4L nc Migraine Hematoma Growth hormone deficiency Diaphoresis hx Acute hypoxic respiratory failure hx Influenza A (12/2024) hx- Status epilepticus (09/13/24) Knee hemarthrosis, right (09/13/24) Acute on chronic anemia (09/13/24) Acute metabolic encephalopathy (09/13/24) hx Laceration of toe of right foot Closed fracture of right fibula with malunion Right fibular fracture hx Acute on chronic respiratory failure with hypoxia and hypercapnia Shortness of breath only if not wearing oxygen Chronic respiratory failure with hypoxia Obesity CKD (chronic kidney disease), stage III Peripheral edema Atrial fibrillation (02/15/24) no cardioversion- has loop recorder and watchmans device, follows with dr. kilgore (03/2025 while inpt.) Chronic low back pain Panhypopituitarism Lumbosacral radiculopathy Toxic encephalopathy Chest pain hx Acute dyspnea hx Acute CHF hx Hypoglycemia hx Syncope and collapse Reason for loop recorder No recent issues since bed bound from femur fracture in Sep 2022 per patient Internal hemorrhoids Recurrent seizures (05/01/25) goes sometimes months without seizures, then may may have 2 in one day- last seizure- 05/01/25- grand mal, lost control of bowel and bladder- informed neuro, dr. villa- told to stay on meds (last saw dr. villa on tu04/30/25) Pituitary diabetes insipidus Spondylolysis, lumbar region Right lumbar radiculopathy HTN (hypertension) Adrenal insufficiency Pituitary adenoma Hyperactive gag reflex BRCA gene positive tested positive in Aug 2023 [place] Family history of BRCA gene mutation PTSD (post-traumatic stress disorder) Epidural lipomatosis Chronic left sacroiliac pain Benzodiazepine overdose hx Presence of cardiac device Loop recorder > placed at [facility]- last checked fall 2023 Hx of fracture of foot Sep 2022- right > cast since removed > still gets painful Fracture of fibula, right, closed Cerebral concussion May 2023 during seizure > no further issues Orthostatic hypotension Sensorineural hearing loss of both ears Rectal bleeding on occasion History of COVID-19 10/2021 - fatigue; resolved. Mitral valve regurgitation follows with Dr. kilgore Vertigo Lower extremity edema Elevated LFTs Bilateral hand pain Pituitary neoplasm Dx'ed in 2001- s/p surgical resection and XRT Repeat surgery in 2018 secondary to tumor regrowth at [facility] Kidney stones currently causing severe pain Prostate mass benign Bladder mass benign Surgical History Presence of Watchman left atrial appendage closure device (02/2024) eric History of arthroplasty of left knee (2014) S/P TURP (status post transurethral resection of prostate) History of lumbar fusion (07/2022) [facility] [place] Jul 2022 History of cardiac cath (07/2021) 07/2021 - no stents- no [facility]- follows with dr. kilgore S/P epidural steroid injection History of lithotripsy Status post right foot surgery replaced 5th metatarsal--hardware in place History of bladder surgery remove mass History of prostate surgery (2016) remove mass- not malignant History of colonoscopy History of esophagogastroduodenoscopy (EGD) History of tooth extraction History of wisdom tooth extraction History of brain surgery x2---[place] @ [facility] [place], 2018 @ [facility]--for brain tumors > caused epilepsy Family History Grandmother (Paternal) Family history of diabetes mellitus Aunt Family history of diabetes mellitus Uncle Family history of diabetes mellitus Father Prostate cancer Heart disease Osteoarthritis Mother Cardiac disorder Grandmother (Maternal) Myocardial infarction Other Asthma Cancer Hypertension No family history of adverse response to anesthesia No family history of bleeding disorder Stroke Denies family history of Ovarian cancer Breast cancer Colorectal cancer Social History Smoking Status: Never smoker Second Hand Exposure: No; Do You Dip or Chew Tobacco: No; Tobacco Cessation Education Requested by Patient: No Hx Alcohol Use: No Hx Substance Use: No Preferred Language: Malagasy Communication Ability: Effective Communication Ability Comment: Unable to obtain due to patient condition. Visual Impairment: Limited Hearing Ability: Normal Enterprise Application Analyst Required: No Beliefs That Will Affect Care: None marital status: Single Current Living Situation: Spouse Current Living Situation Comment: and daughter in [place] current occupational status: disabled How many Children do You have: 3 How many Children do You have Comment: able to assist with care if needed Other Information That Helps Us Care for You: No Feels Safe at Home: Yes Safety Concerns: Feels Safe At This Time Childhood Exposure to Second-Hand Smoke: Yes (parents smoked) Diet: regular Diet Comment: going to be starting low carb/low calorie diet. caffeine: No (1/2 20 oz bottle of mountain dew. ) during the past year weight has: increased > 10 lbs Physical Activity Frequency: Daily Physical Activity Frequency Comment: walking, 1.5 miles daily. Seatbelt Use: always Do you think of yourself as: straight/heterosexual Gender Identity: Male Assistive Devices: Cane, Oxygen - Continuous and Walker Review of Systems Constitutional: + fatigue; no fever and no weakness Eyes: no diplopia, no eye pain and no worsening vision Ear, Nose, Mouth, Throat: no ear pain, no tinnitus, no hearing loss, no dizziness, no snoring, no hoarseness and no dysphagia Respiratory: no cough and no dyspnea Cardiovascular: no chest pain, no palpitations and no lightheadedness Gastrointestinal: no abdominal pain, no nausea and no vomiting Musculoskeletal: + back pain; no neck pain, no radicular pain, no joint pain and no myalgia Integumentary: no rash and no lesions Neurologic: no gait abnormality, no localized weakness, no generalized weakness, no tingling, no numbness, no tremor(s), no abnormal movements, no headache(s), no abnormal speech, no confusion and no memory loss Psychiatric: no depression, no irritability, no anxiety, no difficulty concentrating, no confusion and no hallucinations Endocrine: no fatigue and no flushing Hematologic / Lymphatic: no easy bleeding and no easy bruising Allergy / Immunological: no urticaria and no problem reported Exam (Neuro) Physical Exam: The patient is right-handed. The patient is sleepy but easily arousable and maintains a level of alertness during the interview and exam. Speech is normal without any aphasia or dysarthria. Mood is reasonable and affect is appropriate. Thought processes are impaired because of Ativan but he follows commands well and is pleasant and cooperative. Pupils are 4 mm bilaterally and reactive to light. Extraocular eye muscles are intact without nystagmus. Visual acuity and visual kong seem normal grossly to confrontation. There are no deficits to sensation in the face in all 3 distributions of the fifth cranial nerve bilaterally. Corneal reflexes are positive bilaterally. Facial strength and symmetry was normal bilaterally. Hearing seems intact grossly to voice and finger rub bilaterally. Palate moves well without asymmetry. There is normal sternocleidomastoid and trapezius strength bilaterally. Tongue is midline with good strength bilaterally. Neck has a full range of motion without discomfort. Gait was not tested and it is hard for him to sit up in bed. With outstretched arms there is no drift. There are no resting, postural, or action tremors. There is no ataxia with finger to nose testing. There is good facility in the hands. No other abnormal involuntary movements are noted. Motor strength is 5/5 diffusely in the arms bilaterally including deltoids, biceps, triceps, brachioradialis, wrist flexors and extensors, supervisor housecleaner, and intrinsic hand muscles. Motor strength is 5/5 diffusely in the legs bilaterally including hip flexors, quadriceps, hamstrings, gastrocnemius, tibialis anterior, tibialis posterior, and Peroneii muscles bilaterally. Toe extensors are normal and there is good bulk in the extensor digitorum brevis muscles bilaterally. The limbs have good tone without rigidity or spasticity. There is no atrophy no luisito in the muscles. Muscle bulk is normal, there is no tenderness to palpation, no myotonia to percussion, and no fasciculations seen. Sensory examination is intact to touch and pin throughout all 4 limbs diffusely. Reflexes are 1/4 in the biceps, triceps, brachioradialis, quadriceps, and Achilles tendons bilaterally. Toes are downgoing with plantar stimulation bilaterally. Peripheral pulses are present and of normal quality distally in all 4 limbs. There is no peripheral edema noted in the limbs. Results & Data Vital Signs (Past 12 Hours) Vital Signs Temp Pulse Pulse Resp BP BP Pulse Ox 05/04/25 10:57 36.4 C L 90 19 130/80 98 05/04/25 08:51 36.3 C L 97 H 20 145/84 H 98 05/04/25 08:00 05/04/25 07:57 105 H 05/04/25 07:37 36.7 C 98 H 24 145/80 H 100 05/04/25 07:30 106 H 16 97 05/04/25 05:40 107 H 126/83 95 05/04/25 05:22 112 H 18 141/98 H 94 05/04/25 03:46 90 05/04/25 03:42 36.5 C 91 H 18 148/92 H 98 05/04/25 02:15 05/04/25 01:19 153/96 H 05/04/25 00:30 88 20 153/88 H 95 O2 Del Method O2 Flow Rate 05/04/25 10:57 Nasal Cannula 3 05/04/25 08:51 Nasal Cannula 3 05/04/25 08:00 Nasal Cannula 3 05/04/25 07:57 05/04/25 07:37 Nebulizer 05/04/25 07:30 Nasal Cannula 3 05/04/25 05:40 Nasal Cannula 3 05/04/25 05:22 Nasal Cannula 4 05/04/25 03:46 05/04/25 03:42 Nasal Cannula 2 05/04/25 02:15 Nasal Cannula, BiPAP 2 05/04/25 01:19 05/04/25 00:30 PG Care Time/CCT Total # of Minutes Spent Total Time Spent with Patient: Total time spent is greater than 50% in coordination of care (as documented) at patient's floor/unit and/or counseling patient: Coding Level of Care Code 56910 INT INP/OBS CARE 3/75MIN Diagnoses Witnessed seizure-like activity R56.9 Pseudoseizures R56.9 Depression with anxiety F41.8 Time Spent (min) 90
[2025-05-04] MEDS: DIVALPROEX DELAY RELEASE 500 MG TAB PO SCH (13:03)
--- NOTE | 2025-05-04 13:44 | Communication Note ---
Date of Service: May 04, 2025 Patient was seen by neurologist Dr. Ordonez who initially recommended transfer to [facility]. Joint call with [facility] transfer center, neurologist Dr. Sweet at [facility], Dr. Ordonez neurologist and myself and after Dr. Ordonez and Dr. Sweet spoke, decision was made to not transfer the patient, to avoid any Ativan given the fact the patient has had multiple EEGs at [facility] not showing any seizure activity and working diagnosis is of pseudoseizures for which Ativan is of no help. Dr. Kang recommended getting levels of lacosamide, valproic acid and Keppra today and any further adjustments to medications per Dr. Ordonez after levels are back. General consensus is this patient needs a psychiatry consult. Psych has been consulted. Avoid Ativan/benzodiazepines in this patient per recommendations from Dr. Ordonez and Dr. Doan neurologist at [facility]
[2025-05-04] MEDS: LACOSAMIDE 150 MG in SODIUM CHLORIDE 0.9% 50 ML IV SCH (13:52)
[2025-05-04] MEDS: VALPROATE SOD 500 MG in DEXTROSE 5% 50 ML IV SCH (13:52)
[2025-05-04] MEDS: HYDROCORTISONE 10 MG TAB PO SCH ×2 (14:00→14:39)
[2025-05-04] MEDS: ARIPiprazole 5 MG TAB PO SCH (14:06)
[2025-05-04] MEDS: ROSUVASTATIN CALCIUM 20 MG TAB PO SCH (14:06)
[2025-05-04] MEDS: TAMSULOSIN HCL 0.4 MG CAP PO SCH (14:07)
[2025-05-04] MEDS: QUEtiapine FUMARATE 50 MG TABCR PO SCH (14:09)
[2025-05-04] MEDS: DULoxetine HCL 60 MG CAP PO SCH (14:09)
[2025-05-04] MEDS: FINASTERIDE 5 MG TAB PO SCH (14:10)
[2025-05-04] MEDS: VENLAFAXINE HCL XR 150 MG CAPXR PO SCH (14:12)
[2025-05-04] MEDS: VENLAFAXINE HCL XR 75 MG CAPXR PO SCH (14:12)
[2025-05-04] MEDS: MAGNESIUM OXIDE 400 MG TAB PO SCH (14:12)
[2025-05-04] MEDS ORDERED: PHARMACY GLYCEMIC MGMT CONSULT PRN (14:13)
[2025-05-04] MEDS: lisinopril 40 MG TAB PO SCH (14:15)
[2025-05-04] MEDS: UMECLIDINIUM BROMIDE 62.5MCG/BLISTER 7 PUFFS/INHALER INH SCH (14:18)
--- NOTE | 2025-05-04 14:41 | Pharmacy Report ---
Pharmacy Glycemic Short Note 2 - Date of Service May 04, 2025 - Glycemic Short BSG Results (Last 24 hours): 05/03/25 05/04/25 05/04/25 19:49 01:30 04:34 Glucose 114 H POC Glucose 90 77 05/04/25 05/04/25 05/04/25 06:42 06:56 11:29 Glucose 96 POC Glucose 89 95 OUTPATIENT ANTIDIABETIC REGIMEN: * Lantus 12 units SQ HS * Mounjaro 5mg SQ LACKEY * metformin 1000mg PO BID * HbA1c 5.8% (05/03/25) ASSESSMENT: * Anders is a 54 year old male admitted with flank pain, and pseudoseizures, T2DM. Pharmacy has been consulted to assist with glycemic management while inpatient. * Patient NPO, blood sugars at goal, starting T2DM diet at lunch, will start with similar regimen as last admission in March, which was euglycemic. PLAN FOR INPATIENT GLYCEMIC CONTROL: * Hold outpatient diabetes medications * Basal insulin * Lantus 5 units SQ HS if BSG is greater than 180mg/dL * Bolus insulin * NovoLog per scale ACHS or Q6hrs while NPO * Goal Range: Low 110 mg/dL - High 140 mg/dL * Correction Factor: 35 mg/dL/unit * Nutritional / Prandial insulin per carb ratio of 1 unit per 10 grams CHO consumed
[2025-05-04] MEDS: PRAZOSIN HCL 1 MG CAP PO SCH (20:18)
[2025-05-04] MEDS: METOPROLOL SUCC 25MG EXT REL TAB PO SCH (20:19)
[2025-05-04] MEDS: PROPRANOLOL HCL 60 MG LA CAP PO SCH (20:19)
[2025-05-04] MEDS: traZODone HCL 100 MG TAB PO SCH (20:20)
[2025-05-04] MEDS: DULoxetine HCL 30 MG CAP PO SCH (20:20)
[2025-05-04] MEDS: CLOPIDOGREL BISULFATE 75 MG TAB PO SCH (20:20)
[2025-05-04] MEDS: MIRTAZAPINE TAB 15 MG TAB PO SCH (20:20)
[2025-05-04] MEDS: levETIRAcetam 500 MG/5 ML VIAL IV SCH (20:21)
[2025-05-04] MEDS: ASPIRIN 81 MG ECTAB PO SCH (20:21)
[2025-05-04] MEDS: BUDESONIDE 0.5 MG/2 ML VIAL (PULMICORT) INH SCH (20:23)
[2025-05-04] MEDS: LANTUS PER UNIT CHARGE SQ SCH (20:44)
[2025-05-04] MEDS ORDERED: LANTUS PER UNIT CHARGE SQ SCH (21:00)
[2025-05-05 07:37] LABS: Basophils # (auto) 0.04 K/uL (0.00-0.20); Basophils % (auto) 0.5 %; Eosinophils # (auto) 0.14 K/uL (0.00-0.50); Eosinophils % (auto) 1.7 %; Hematocrit (blood only) 33.1 % (42.0-52.0); Hemoglobin 10.9 g/dl (14.0-18.0); Immature Granulocytes # (auto) 0.08 K/uL (0.01-0.20); Lymphocytes # (auto) 2.59 K/uL (1.20-3.40); Lymphocytes % (auto) 31.5 %; Mean Corpuscular Hemoglobin 28.4 pg (25.0-34.0); Mean Corpuscular Hgb Conc 32.9 g/dL (32.0-36.0); Mean Corpuscular Volume 86.2 fL (80.0-100.0); Mean Platelet Volume 8.3 fL (9.4-12.4); Monocytes # (auto) 0.83 K/uL (0.11-0.59); Monocytes % (auto) 10.1 %; Neutrophils # (auto) 4.53 K/uL (1.40-6.50); Neutrophils % (auto) 55.2 %; Platelet Count 149 K/uL (130-400); RDW Coefficient of Variation 13.6 % (11.5-14.5); RDW Standard Deviation 42.6 fL (36.4-46.3); Red Blood Count 3.84 M/uL (4.70-6.10); White Blood Count 8.21 K/ul (4.8-10.8)
[2025-05-05 07:55] LABS: Alanine Aminotransferase 57 U/L (7-52); Albumin Globulin Ratio 2.2 (0.9-2); Alkaline Phosphatase 62 U/L (34-104); Anion Gap 7 (3-11); Aspartate Aminotransferase 37 U/L (13-39); BUN Creatinine Ratio 13.2 (10-20); Bilirubin,Total 0.3 mg/dl (0.2-1.0); Blood Urea Nitrogen 10 mg/dl (6-23); C Reactive Protein < 0.50 mg/dl (0-0.5); Calcium 8.8 mg/dl (8.6-10.3); Carbon Dioxide 31 mmol/L (21-32); Chloride 107 mmol/L (98-107); Creatinine Clr Calc Pharmacy 139.2 ml/min; Globulin 1.7 gm/dl (2.5-4.0); Glucose 122 mg/dl (70-99(Fasting)); Magnesium 1.7 mg/dl (1.7-2.4); Potassium 3.5 mmol/L (3.5-5.1); Sodium 145 mmol/L (136-145); Total Protein 5.4 gm/dl (6.0-8.3)
[2025-05-05] MEDS: lisinopril 20 MG TAB PO SCH (08:31)
[2025-05-05] MEDS: MAGNESIUM SULFATE / D5W 1 GM/100 ML BAG IV SCH (09:37)
[2025-05-05] MEDS: POTASSIUM CHLORIDE CRTAB 20 MEQ TABCR PO STA (09:37)
--- NOTE | 2025-05-05 10:00 | Urology Progress Note ---
Date of Service May 05, 2025 Assessment & Plan (1) Kidney stones: Plan 54-year-old male with indwelling right ureteral stent, nonobstructing stone on the left. Still having some flank pain. Currently on Tylenol, narcotic, receiving tamsulosin. Could consider adding Pyridium. Will hold off surgical intervention today, however tentatively make him n.p.o. at midnight as his primary urologist Dr. Mendoza is here tomorrow. Admission and Anticipated Discharge Date Admission Date: May 03, 2025 Subjective Feeling okay this morning, denies any fevers or chills Reports ongoing flank pain related to the stent WBC 8.21, creatinine 0.76, glucose 124. Urine culture from 05/03/2025 with no growth Physical Exam Physical Exam: Resting comfortably in bed, NAD Results & Data Vital Signs (Past 12 Hours) Vital Signs Temp Pulse Pulse Resp BP Pulse Ox Pulse Ox 05/05/25 08:02 36.7 C 90 22 140/75 97 05/05/25 07:17 05/05/25 06:57 90 05/05/25 06:55 87 18 99 05/05/25 03:07 36.3 C L 93 H 16 124/76 95 05/05/25 01:16 97 05/05/25 00:39 108 H 05/04/25 23:38 106 H 16 99 05/04/25 23:05 36.7 C 105 H 16 151/90 H 96 O2 Del Method O2 Del Method O2 Flow Rate O2 Flow Rate FiO2 05/05/25 08:02 Nasal Cannula 3 05/05/25 07:17 Nasal Cannula 2 05/05/25 06:57 05/05/25 06:55 Nasal Cannula 3 05/05/25 03:07 Nasal Cannula 3 05/05/25 01:16 Nasal Cannula 3 05/05/25 00:39 05/04/25 23:38 40 05/04/25 23:05 Nasal Cannula 3 PG Care Time/CCT Total # of Minutes Spent Total Time Spent with Patient: Total time spent is greater than 50% in coordination of care (as documented) at patient's floor/unit and/or counseling patient: Coding Level of Care Code 00230 SUB INP/OBS CARE 2/35MIN Diagnoses Kidney stones N20.0
--- NOTE | 2025-05-05 10:32 | Hospitalist Progress Note ---
Date of Service May 05, 2025 Assessment & Plan (1) Kidney stones: (2) COPD (chronic obstructive pulmonary disease): (3) Presence of Watchman left atrial appendage closure device: (4) Pseudoseizures: (5) Hypothyroidism: (6) Bipolar disorder: (7) Pituitary hypogonadism: (8) Chronic adrenal insufficiency: (9) CKD (chronic kidney disease), stage III: (10) Obesity: (11) Atrial fibrillation: (12) Panhypopituitarism: Plan 54-year-old male with past medical history of COPD/CORINA on oxygen via nasal cannula, noncompliant with CPAP, type 2 diabetes mellitus, morbid obesity, pseudoseizures, bipolar disorder, 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 #Bilateral kidney stones #Right ureteric stent in place #BPH Continue IV ceftriaxone (day 2) Urine culture shows no growth, less than 1000 CFU Continue Flomax Tylenol as needed, add oxycodone as needed for severe pain related to kidney stones Urology has made him n.p.o. for possible procedure tomorrow #Pseudoseizures versus seizures Outpatient neurologist Dr. Ordonez Patient had multiple episodes overnight for which she has received 4 mg of IV Ativan Neurology saw the patient and initially recommended transfer to [place] but after Dr. Ordonez spoke with neurologist Dr. Sweet at [facility], plan was to keep patient here as patient has had multiple transfers to [facility] with multiple video EEGs showing no epileptiform activity and consensus is that patient has pseudoseizures and they both recommended psychiatry consult Seizure precautions Continue IV lacosamide, IV Keppra, IV Depakote Lacosamide, Keppra and Depakote levels sent per neurology recommendations on 05/04/2025: Results pending #CORINA noncompliant with CPAP #COPD - Uses home oxygen 2 lpm at rest and 4 lpm with activity - Continue home inhalers and prn neb #History of CVA #Nonobstructive coronary disease # Paroxysmal atrial fibrillation status post watchman's #Chronic diastolic congestive heart failure with preserved ejection fraction #Essential hypertension Continue aspirin plus Plavix plus Crestor plus Toprol-XL 25 mg daily Reviewed patient's records, no history of PE/DVT and unclear why patient was also getting apixaban when he has a watchman's device Apixaban has been stopped. Telemetry monitoring shows sinus rhythm Increase lisinopril to 40 mg daily per home dose with hold parameters I/O monitoring Daily weights Monitor vital signs Patient will need follow-up with cardiology as outpatient #Panhypopituitarism #Hypothyroidism Outpatient shrimp header Dr. Martínez Voss Continue levothyroxine 150 mcg p.o. daily Continue desmopressin twice daily Continue home dose of hydrocortisone 20 mg every morning and 10 mg every afternoon Monitor sodium level and electrolytes #Type 2 diabetes mellitus A1c is 6.0 Pharmacy managing glycemic control #Bipolar disorder Continue lithium, mirtazapine, prazosin, propranolol, Effexor, trazodone and aripiprazole Psychiatry consulted per neurology recommendations: Awaiting psychiatry consult and recommendations #Chronic low back pain Tylenol as needed Continue duloxetine #Morbid obesity BMI is 36.7 Outpatient follow-up with PCP CODE STATUS: DNR/DNI DVT prophylaxis: Bilateral SCD Discharge planning: Based on clinical improvement, psychiatry consult and recommendations, urology recommendations postprocedure, PT/OT recommendations likely in the next 48 to 72 hours Admission and Anticipated Discharge Date Admission Date: May 03, 2025 Subjective Patient seen and examined Telemetry reviewed Labs reviewed He is awake and alert and answering questions appropriately He is tolerating oral diet without issues Patient complaining of flank pain, right-sided: He was seen by urology and no procedure today but plan is for n.p.o. after midnight for possible procedure tomorrow with his own urologist Dr. Mendoza Patient denies any fever, chills, chest pain or shortness of breath He has not seen his outpatient psychiatrist in a very long time and is open to meeting with psychiatry here as recommended by neurology team Physical Exam Physical Exam: General: No acute distress Psych: Awake and alert, oriented to place and person HEENT: Anicteric sclera CVS: Regular rate and rhythm Lungs: Bilateral air entry, no wheezing noted Abdomen: Soft, nontender, no rebound, no guarding Ext: No lower extremity edema, no calf tenderness Neuro: No focal deficits noted, able to move all 4 extremities Results & Data Results & Data Vital Signs (Past 12 Hours) Vital Signs Temp Pulse Pulse Resp BP Pulse Ox Pulse Ox 05/05/25 08:02 36.7 C 90 22 140/75 97 05/05/25 07:17 05/05/25 06:57 90 05/05/25 06:55 87 18 99 05/05/25 03:07 36.3 C L 93 H 16 124/76 95 05/05/25 01:16 97 05/05/25 00:39 108 H 05/04/25 23:38 106 H 16 99 05/04/25 23:05 36.7 C 105 H 16 151/90 H 96 O2 Del Method O2 Del Method O2 Flow Rate O2 Flow Rate FiO2 05/05/25 08:02 Nasal Cannula 3 05/05/25 07:17 Nasal Cannula 2 05/05/25 06:57 05/05/25 06:55 Nasal Cannula 3 05/05/25 03:07 Nasal Cannula 3 05/05/25 01:16 Nasal Cannula 3 05/05/25 00:39 05/04/25 23:38 40 05/04/25 23:05 Nasal Cannula 3 Laboratory Results Laboratory Results - last 24 hr 05/04/25 05/04/25 05/04/25 06:56 11:29 14:09 WBC RBC Hgb Hct MCV MCH MCHC RDW Std Deviation RDW Coeff of Yanira Plt Count MPV Immature Gran % (Auto) Neut % (Auto) Lymph % (Auto) Hale % (Auto) Eos % (Auto) Baso % (Auto) Neut # (Auto) Lymph # (Auto) Hale # (Auto) Eos # (Auto) Baso # (Auto) Immature Gran # (Auto) Sodium Potassium Chloride Carbon Dioxide Anion Gap BUN Creatinine Est Cr Clr Drug Dosing eGFR BUN/Creatinine Ratio Glucose POC Glucose 95 Calcium Magnesium Total Bilirubin AST ALT Alkaline Phosphatase C-Reactive Protein Total Protein Albumin Globulin Albumin/Globulin Ratio Free Valproic Acid Pending Total Valproic Acid Pending Lacosamide Level Pending Levetiracetam Pending Hawkeye < 0.1 L 05/04/25 05/04/25 05/04/25 14:43 16:42 20:39 WBC RBC Hgb Hct MCV MCH MCHC RDW Std Deviation RDW Coeff of Yanira Plt Count MPV Immature Gran % (Auto) Neut % (Auto) Lymph % (Auto) Hale % (Auto) Eos % (Auto) Baso % (Auto) Neut # (Auto) Lymph # (Auto) Hale # (Auto) Eos # (Auto) Baso # (Auto) Immature Gran # (Auto) Sodium Potassium Chloride Carbon Dioxide Anion Gap BUN Creatinine Est Cr Clr Drug Dosing eGFR BUN/Creatinine Ratio Glucose POC Glucose 80 106 H 127 H Calcium Magnesium Total Bilirubin AST ALT Alkaline Phosphatase C-Reactive Protein Total Protein Albumin Globulin Albumin/Globulin Ratio Free Valproic Acid Total Valproic Acid Lacosamide Level Levetiracetam Hawkeye 05/05/25 05/05/25 07:13 07:21 WBC 8.21 RBC 3.84 L Hgb 10.9 L Hct 33.1 L MCV 86.2 MCH 28.4 MCHC 32.9 RDW Std Deviation 42.6 RDW Coeff of Yanira 13.6 Plt Count 149 MPV 8.3 L Immature Gran % (Auto) 1.0 Neut % (Auto) 55.2 Lymph % (Auto) 31.5 Hale % (Auto) 10.1 Eos % (Auto) 1.7 Baso % (Auto) 0.5 Neut # (Auto) 4.53 Lymph # (Auto) 2.59 Hale # (Auto) 0.83 H Eos # (Auto) 0.14 Baso # (Auto) 0.04 Immature Gran # (Auto) 0.08 Sodium 145 Potassium 3.5 Chloride 107 Carbon Dioxide 31 Anion Gap 7 BUN 10 Creatinine 0.76 Est Cr Clr Drug Dosing 139.2 eGFR 105.49 BUN/Creatinine Ratio 13.2 Glucose 122 H POC Glucose 124 H Calcium 8.8 Magnesium 1.7 Total Bilirubin 0.3 AST 37 ALT 57 H Alkaline Phosphatase 62 C-Reactive Protein < 0.50 Total Protein 5.4 L D Albumin 3.7 Globulin 1.7 L Albumin/Globulin Ratio 2.2 H Free Valproic Acid Total Valproic Acid Lacosamide Level Levetiracetam Hawkeye PG Care Time/CCT Total # of Minutes Spent Total Time Spent with Patient: Total time spent is greater than 50% in coordination of care (as documented) at patient's floor/unit and/or counseling patient: Coding Level of Care Code 51915 SUB INP/OBS CARE 50MIN Diagnoses Kidney stones N20.0 COPD (chronic obstructive pulmonary disease) J44.9 Presence of Watchman left atrial appendage closure device Z95.818 Pseudoseizures R56.9 Hypothyroidism E03.9 Bipolar disorder F31.9 Pituitary hypogonadism E23.0 Chronic adrenal insufficiency E27.40 CKD (chronic kidney disease), stage III N18.30 Obesity E66.9 Atrial fibrillation I48.91 Atrial fibrillation type: unspecified Panhypopituitarism E23.0 (11) Atrial fibrillation Atrial fibrillation type: unspecified Qualified Code(s): I48.91 - Unspecified atrial fibrillation
[2025-05-05] MEDS: POLYETHYLENE (MIRALAX) 17 GM PACK PO SCH (11:22)
[2025-05-05] MEDS: lisinopril 20 MG TAB PO STA (14:40)
[2025-05-05] MEDS: MELATONIN 3 MG TAB PO PRN (19:40)
[2025-05-05] MEDS: oxyCODONE HCL IR 5 MG TAB (IMMEDIATE RELEASE) PO PRN (19:41)
[2025-05-05] MEDS: SENNA 8.6 MG TAB PO SCH (19:55)
[2025-05-06] MEDS ORDERED: Nursing to Pharmacy Communication SCH ×2 (06:30→15:45)
[2025-05-06 06:41] LABS: Basophils # (auto) 0.05 K/uL (0.00-0.20); Basophils % (auto) 0.6 %; Eosinophils # (auto) 0.18 K/uL (0.00-0.50); Hematocrit (blood only) 32.4 % (42.0-52.0); Hemoglobin 10.8 g/dl (14.0-18.0); Immature Granulocytes # (auto) 0.14 K/uL (0.01-0.20); Immature Granulocytes % (auto) 1.6 %; Lymphocytes # (auto) 2.95 K/uL (1.20-3.40); Lymphocytes % (auto) 32.7 %; Mean Corpuscular Hemoglobin 28.6 pg (25.0-34.0); Mean Corpuscular Hgb Conc 33.3 g/dL (32.0-36.0); Mean Corpuscular Volume 85.9 fL (80.0-100.0); Mean Platelet Volume 8.8 fL (9.4-12.4); Monocytes # (auto) 0.82 K/uL (0.11-0.59); Monocytes % (auto) 9.1 %; Neutrophils # (auto) 4.87 K/uL (1.40-6.50); Platelet Count 158 K/uL (130-400); RDW Coefficient of Variation 13.6 % (11.5-14.5); RDW Standard Deviation 42.5 fL (36.4-46.3); Red Blood Count 3.77 M/uL (4.70-6.10); White Blood Count 9.01 K/ul (4.8-10.8)
[2025-05-06 07:03] LABS: BUN Creatinine Ratio 11.8 (10-20); Calcium 8.8 mg/dl (8.6-10.3); Creatinine Clr Calc Pharmacy 139.1 ml/min; Magnesium 1.7 mg/dl (1.7-2.4); Potassium 3.6 mmol/L (3.5-5.1)
[2025-05-06] MEDS: POTASSIUM CHLORIDE CRTAB 20 MEQ TABCR PO STA (08:42)
[2025-05-06] MEDS: lisinopril 40 MG TAB PO SCH (08:44)
[2025-05-06] MEDS: MAGNESIUM OXIDE 400 MG TAB PO SCH (08:53)
--- NOTE | 2025-05-06 09:32 | Urology Progress Note ---
Date of Service May 06, 2025 Assessment & Plan (1) Bilateral nephrolithiasis: (2) Kidney stones: Plan 54-year-old male with indwelling right ureteral stent, nonobstructing stone on the left. Patient afebrile, labs reviewed. Urine culture no growth. Continues to have right flank pain. Currently on Tylenol, narcotic, receiving tamsulosin. Could consider adding Pyridium. Patient would like to proceed with surgical intervention today. Case reviewed with Dr. Mendoza. Will proceed to OR today for cystoscopy, bilateral ureteroscopy, possible bilateral stone treatment, right stent exchange, and possible left stent placement. Keep NPO for procedure. Will continue with scheduled antibiotic preoperatively. Continue medical management per hospital medicine service. will follow. Attending note: Patient independently assessed, examined, interviewed, and evaluated. Agree with note as above. Patient's vitals and labs were all reviewed. Pertinent values in the HPI and plan section. Imaging was reviewed interpreted by myself. Agree with read. Vitals were reviewed. Discussed findings extensively with patient and family. Reviewed with nurse practitioner as well as consulting physicians/team. Patient's complicated medical and surgical history was reviewed and summarized above. Patient's surgical, medical, social, and family history were all reviewed with pertinent values as above. Discussed patient's current diagnosis as well as concerns and issues. Reviewed different options moving forward. Discussed potential risks and benefits as well as possible options and concerns. Reviewed potential surgical options and interventions. Discussed potential issues and concerns related to intervention. Risk and benefits were discussed extensively with patient and any available family. Discussed potential risks related to anesthesia. Discussed risks of bleeding infection and injury. Discussed options for conservative measure and maximum expulsion medical therapy and symptom controlled. Discussed ESWL. Discussed Ureteroscopy with extraction and/or laser lithotripsy. Risks and benefits were discussed. Stone free rates were also discussed as well as possibility of multiple procedures. Ureteral stents were discussed as well as post-operative issues and pain management. All questions were answered. Risks and benefits discussed at length for procedure. These include bleeding, infection, injury to surrounding tissues or organs, and risks associated with anesthesia. Patient states understanding and agrees to proceed. Will sign consent and proceed. Plan for cystoscopy with possible bilateral ureteroscopy and stone treatment Admission and Anticipated Discharge Date Admission Date: May 03, 2025 Subjective Patient seen and examined at bedside this morning He reports he is feeling okay Reports ongoing flank pain related to the stent Denies fevers Voiding spontaneously WBC 9.01, creatinine 0.76 Urine culture from 05/03/2025 with no growth Review of Systems Review of Systems: All systems reviewed & are unremarkable except as noted in HPI & below Constitutional: as per Subjective / HPI Genitourinary: + as per Subjective / HPI Physical Exam Physical Exam: General: Alert in no acute distress. Obese HEENT: Normocephalic Atraumatic. Inspection normal. Cranial Nerves 2-12 Grossly intact. Normal inspection of face. Normal inspection of neck. Psychologic: Normal affect. Respiratory: Nonlabored. No use of accessory muscles. No tachypnea or dyspnea. Cardiovascular: No tachycardia Skin: [place] and Dry. No rashes or visible lesions. Extremities/Lymphatics: No edema Abdomen: Soft Non-distended. No rebound or guarding. Respiratory: no respiratory distress and no labored breathing Psychiatric: Orientation: alert and oriented x 3 Results & Data Vital Signs (Past 12 Hours) Vital Signs Temp Pulse Pulse Resp BP Pulse Ox O2 Del Method 05/06/25 07:37 36.5 C 80 18 145/83 H 100 Nasal Cannula 05/06/25 07:19 81 18 94 Nasal Cannula 05/06/25 07:18 80 05/06/25 02:56 36.3 C L 81 18 149/89 H 96 Nasal Cannula 05/06/25 01:33 21 05/06/25 01:00 05/05/25 23:03 36.6 C 91 H 17 152/84 H 98 Nasal Cannula 05/05/25 21:46 93 H O2 Del Method O2 Flow Rate FiO2 05/06/25 07:37 3 05/06/25 07:19 3 05/06/25 07:18 05/06/25 02:56 3 05/06/25 01:33 40 05/06/25 01:00 BiPAP 05/05/25 23:03 3 05/05/25 21:46 PG Care Time/CCT Total # of Minutes Spent Total Time Spent with Patient: Total time spent is greater than 50% in coordination of care (as documented) at patient's floor/unit and/or counseling patient: Coding Level of Care Code 64072 SUB INP/OBS CARE 3/50MIN Diagnoses Bilateral nephrolithiasis N20.0 Kidney stones N20.0
--- NOTE | 2025-05-06 10:11 | Hospitalist Progress Note ---
Date of Service May 06, 2025 Assessment & Plan (1) Kidney stones: (2) COPD (chronic obstructive pulmonary disease): (3) Presence of Watchman left atrial appendage closure device: (4) Pseudoseizures: (5) Hypothyroidism: (6) Bipolar disorder: (7) Pituitary hypogonadism: (8) Chronic adrenal insufficiency: (9) CKD (chronic kidney disease), stage III: (10) Obesity: (11) Atrial fibrillation: (12) Panhypopituitarism: Plan 54-year-old male with past medical history of COPD/CORINA on oxygen via nasal cannula, noncompliant with CPAP, type 2 diabetes mellitus, morbid obesity, pseudoseizures, bipolar disorder, 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 #Bilateral kidney stones #Right ureteric stent in place #BPH Continue IV ceftriaxone (day 3) Urine culture shows no growth, less than 1000 CFU Continue Flomax Tylenol as needed, and oxycodone as needed for severe pain related to kidney stones Urology has made him n.p.o. for procedure today #Pseudoseizures versus seizures Outpatient neurologist Dr. Ordonez Patient had multiple episodes overnight for which she has received 4 mg of IV Ativan Neurology saw the patient and initially recommended transfer to [place] but after Dr. Ordonez spoke with neurologist Dr. Sweet at [facility], plan was to keep patient here as patient has had multiple transfers to [facility] with multiple video EEGs showing no epileptiform activity and consensus is that patient has pseudoseizures and they both recommended psychiatry consult Seizure precautions Continue IV lacosamide, IV Keppra, IV Depakote Lacosamide, Keppra and Depakote levels sent per neurology recommendations on 05/04/2025: Results pending #CORINA noncompliant with CPAP #COPD - Uses home oxygen 2 lpm at rest and 4 lpm with activity - Continue home inhalers and prn neb #History of CVA #Nonobstructive coronary disease # Paroxysmal atrial fibrillation status post watchman's #Chronic diastolic congestive heart failure with preserved ejection fraction #Essential hypertension Continue aspirin plus Plavix plus Crestor plus Toprol-XL 25 mg daily Reviewed patient's records, no history of PE/DVT and unclear why patient was also getting apixaban when he has a watchman's device Apixaban has been stopped. Telemetry monitoring shows sinus rhythm Increase lisinopril to 40 mg daily per home dose with hold parameters I/O monitoring Daily weights Monitor vital signs Patient will need follow-up with cardiology as outpatient #Panhypopituitarism #Hypothyroidism Outpatient business area manager Dr. Martínez Voss Continue levothyroxine 150 mcg p.o. daily Continue desmopressin twice daily Continue home dose of hydrocortisone 20 mg every morning and 10 mg every afternoon Monitor sodium level and electrolytes #Type 2 diabetes mellitus A1c is 6.0 Pharmacy managing glycemic control #Bipolar disorder Outpatient psychiatrist is Dr. Woods Continue lithium, mirtazapine, prazosin, propranolol, Effexor, trazodone and aripiprazole Psychiatry consulted per neurology recommendations: Awaiting psychiatry consult and recommendations #Chronic low back pain Tylenol as needed Continue duloxetine #Morbid obesity BMI is 36.7 Outpatient follow-up with PCP CODE STATUS: DNR/DNI DVT prophylaxis: Bilateral SCD Discharge planning: Based on clinical improvement, psychiatry consult and recommendations, urology recommendations postprocedure, PT/OT recommendations likely in the next 24 to hours Care plan discussed with patient, nursing staff and updated at bedside Admission and Anticipated Discharge Date Admission Date: May 03, 2025 Subjective Patient seen and examined cody at bedside Denies any chest pain, shortness of breath Smiling, complaining of flank pain, n.p.o. currently for urological procedure today Denies any fever or chills Physical Exam Physical Exam: General: No acute distress Psych: Awake and alert, oriented to place and person HEENT: Anicteric sclera CVS: Regular rate and rhythm Lungs: Bilateral air entry, no wheezing noted Abdomen: Soft, nontender, no rebound, no guarding Ext: No lower extremity edema, no calf tenderness Neuro: No focal deficits noted, able to move all 4 extremities Results & Data Results & Data Vital Signs (Past 12 Hours) Vital Signs Temp Pulse Pulse Resp BP Pulse Ox O2 Del Method 05/06/25 07:37 36.5 C 80 18 145/83 H 100 Nasal Cannula 05/06/25 07:19 81 18 94 Nasal Cannula 05/06/25 07:18 80 05/06/25 02:56 36.3 C L 81 18 149/89 H 96 Nasal Cannula 05/06/25 01:33 21 05/06/25 01:00 05/05/25 23:03 36.6 C 91 H 17 152/84 H 98 Nasal Cannula O2 Del Method O2 Flow Rate FiO2 05/06/25 07:37 3 05/06/25 07:19 3 05/06/25 07:18 05/06/25 02:56 3 05/06/25 01:33 40 05/06/25 01:00 BiPAP 05/05/25 23:03 3 Laboratory Results 05/03/25 19:49 Urine Culture - Final Urine,Clean Catch No growth - less than 1,000 colonies/mL. 05/06/25 05/06/25 05/05/25 06:27 06:18 20:10 WBC 9.01 RBC 3.77 L Hgb 10.8 L Hct 32.4 L MCV 85.9 MCH 28.6 MCHC 33.3 RDW Std Deviation 42.5 RDW Coeff of Yanira 13.6 Plt Count 158 MPV 8.8 L Immature Gran % (Auto) 1.6 Neut % (Auto) 54.0 Lymph % (Auto) 32.7 [place] % (Auto) 9.1 Eos % (Auto) 2.0 Baso % (Auto) 0.6 Neut # (Auto) 4.87 Lymph # (Auto) 2.95 [place] # (Auto) 0.82 H Eos # (Auto) 0.18 Baso # (Auto) 0.05 Immature Gran # (Auto) 0.14 Sodium 145 Potassium 3.6 Chloride 108 H Carbon Dioxide 30 Anion Gap 7 BUN 9 Creatinine 0.76 Est Cr Clr Drug Dosing 139.1 eGFR 105.49 BUN/Creatinine Ratio 11.8 Glucose 100 H POC Glucose 96 138 H Calcium 8.8 Magnesium 1.7 05/05/25 05/05/25 16:24 11:20 WBC RBC Hgb Hct MCV MCH MCHC RDW Std Deviation RDW Coeff of Yanira Plt Count MPV Immature Gran % (Auto) Neut % (Auto) Lymph % (Auto) [place] % (Auto) Eos % (Auto) Baso % (Auto) Neut # (Auto) Lymph # (Auto) [place] # (Auto) Eos # (Auto) Baso # (Auto) Immature Gran # (Auto) Sodium Potassium Chloride Carbon Dioxide Anion Gap BUN Creatinine Est Cr Clr Drug Dosing eGFR BUN/Creatinine Ratio Glucose POC Glucose 139 H 111 H Calcium Magnesium PG Care Time/CCT Total # of Minutes Spent Total Time Spent with Patient: Total time spent is greater than 50% in coordination of care (as documented) at patient's floor/unit and/or counseling patient: Coding Level of Care Code 20722 SUB INP/OBS CARE 2/35MIN Diagnoses Kidney stones N20.0 COPD (chronic obstructive pulmonary disease) J44.9 Presence of Watchman left atrial appendage closure device Z95.818 Pseudoseizures R56.9 Hypothyroidism E03.9 Bipolar disorder F31.9 Pituitary hypogonadism E23.0 Chronic adrenal insufficiency E27.40 CKD (chronic kidney disease), stage III N18.30 Obesity E66.9 Atrial fibrillation I48.91 Atrial fibrillation type: unspecified Panhypopituitarism E23.0 (11) Atrial fibrillation Atrial fibrillation type: unspecified Qualified Code(s): I48.91 - Unspecified atrial fibrillation
[2025-05-06] MEDS: MAGNESIUM SULFATE / D5W 1 GM/100 ML BAG IV SCH (10:40)
[2025-05-06] MEDS: INSULIN ASPART PER UNIT CHARGE SC SCH ×2 (11:43→16:45)
[2025-05-06] MEDS ORDERED: MIDAZOLAM HCL 1 MG/ML 2ML VIAL ONE (11:55)
[2025-05-06] MEDS ORDERED: LIDOCAINE 2% 2 ML VIAL/AMP(20MG/ML) INFIL ONE (11:56)
[2025-05-06] MEDS ORDERED: PROPOFOL IV EMULSION 10 MG/ML 20 ML VIAL IV ONE (11:56)
[2025-05-06] MEDS ORDERED: ONDANSETRON INJ 2 MG/ML 2 ML VIAL ONE (11:56)
[2025-05-06] MEDS ORDERED: fentaNYL citrate PF 100 MCG/2 ML VIAL ONE (11:56)
[2025-05-06] MEDS ORDERED: DEXAMETHASONE SOD INJ 4 MG/ML VIAL ONE (11:56)
[2025-05-06] MEDS: LACTATED RINGER'S 1,000 ML IV SCH (12:03)
[2025-05-06] MEDS ORDERED: ATROPINE SULFATE 0.1 MG/ML 10ML SYR IV PRN (12:27)
[2025-05-06] MEDS ORDERED: ePHEDrine sulfate 50 MG/ML AMP IV PRN (12:27)
[2025-05-06] MEDS ORDERED: PROMETHAZINE HCL 6.25 MG in SODIUM CHLORIDE 0.9% 50 ML IV PRN (12:27)
[2025-05-06] MEDS ORDERED: PHENYLEPHRINE 100MCG/ML 5ML SYR ONE (12:52)
[2025-05-06] MEDS: DIATRIZOATE MEGLUMINE 30% 100ML VIAL INSTIL ONE (13:13)
--- NOTE | 2025-05-06 13:23 | Pharmacy Report ---
Pharmacy Glycemic Short Note 2 - Date of Service May 06, 2025 - Glycemic Short BSG Results (Last 24 hours): 05/05/25 05/05/25 05/06/25 16:24 20:10 06:18 Glucose 100 H POC Glucose 139 H 138 H 05/06/25 05/06/25 06:27 11:39 Glucose POC Glucose 96 142 H OUTPATIENT ANTIDIABETIC REGIMEN: * Lantus 12 units SQ HS * Mounjaro 5mg SQ LACKEY * metformin 1000mg PO BID HbA1c: 5.8% (05/03/25) ASSESSMENT: 05/06/25: * Blood sugars have been well-controlled since time of admission * Received 16 units of bolus insulin only yesterday * NPO today, cystoscopy w/ stent exchange 05/04/25: * Anders is a 54 year old male admitted with flank pain, and pseudoseizures, T2DM. Pharmacy has been consulted to assist with glycemic management while inpatient. * Patient NPO, blood sugars at goal, starting T2DM diet at lunch, will start with similar regimen as last admission in March, which was euglycemic. PLAN FOR INPATIENT GLYCEMIC CONTROL: * Hold outpatient diabetes medications * Basal insulin * Lantus 5 units SQ HS if BSG is greater than 180mg/dL * Bolus insulin * NovoLog per scale ACHS or Q6hrs while NPO * Goal Range: Low 110 mg/dL - High 140 mg/dL * Correction Factor: 35 mg/dL/unit * Nutritional / Prandial insulin per carb ratio of 1 unit per 12 grams CHO consumed
--- NOTE | 2025-05-06 13:29 | Operative Report ---
PG Post Operative Report Pre & Post Diagnosis Operation Date: 05/06/25 10:50 Pre-Op Diagnosis: Bilateral Nephrolithiasis, Kidney Stones Post-Op Diagnosis: Bilateral Nephrolithiasis, Kidney Stones I identified the patient and participated in the time-out.: Yes Procedure Operation Date: 05/06/25 10:50 Actual Procedures Cystoscopy with bilateral retrograde pyelogram. Left Ureteroscopy and Stone Basket extraction Right Ureteroscopy with Right Laser Lithotripsy, Right stone extraction, and Right Stent Removal - Elliot Mendoza DO Surgeon Elliot Mendoza, II, DO Tax Record Clerk None Estimated Blood Loss 1 Findings Consistent with Post-Op Diagnosis Severely obstructing stone in the proximal ureter on right with stent in place. Small Stone in left upper pole kidney Left Stone extracted Right Stone destroyed to dust and small fragments and larger fragments removed. Specimens Stone Fragments: 1. Right Ureter 2. Left Renal Drains 20 Fr Coude Anesthesia Type General Complications none Disposition Disposition: Recovery Room Indications Patient with bothersome stones. Risks and benefits discussed at length. Description of Procedure Patient was consented and brought back to the operating room. Patient was placed under anesthesia in the supine position and moved to the dorsal lithotomy position. Patient was prepped and draped in the regular sterile fashion. A time out was completed identifying the correct patient and procedure. A 30degree Cystoscope was placed into the bladder and the entire bladder was examined. The UO's were identified. The stent on the right was identified. It was partially removed and a wire placed. It was then fully removed. A retrograde pyelogram was completed over the wire. Significant obstruction was noted from the right ureteral stone with in the proximal ureter. The left UO was cannulized with a catheter and a retrograde pyelogram was completed. A wire was then placed. Attention was taken to the left first. A ureteral access sheath and second safety wire was placed. The flexible ureteroscope was taken into the ureter. The entire ureter and renal pelvis were examined. The stone in the upper pole was identified. No other stones or abnormalities were discovered. The stone appeared to be approximately 4mm consistent with the imaging. The basket was selected. The stone was grasped and removed and sent for analysis. A retrograde pyelogram was completed. The entire area was once again examined. No residual large fragments or areas of concern were noted. The scope was slowly removed with the wire left in place. Contrast was placed through the scope for a pyelogram. Good drainage films were noted. No sign of obstruction. It was decided to hold off on stent placement on the left due to the patients severe reaction with the right stent. Attention was then taken to the right. A ureteral access sheath and second safety wire was placed. The flexible ureteroscope was taken into the ureter. The entire ureter and renal pelvis were examined. The stone was discovered in the proximal ureter. A laser fiber was selected and the stones were pulverized to dust and small fragments. Larger fragments were grasped and removed and sent for analysis. The entire ureter was inspected. No severe stricture. The entire ureter was examined as the scope was slowly removed. No obstructions or other areas of concern were noted. A retrograde pyelogram was completed again through the scope. Once again good drainage films were noted. No significant blockage. With good drainage and due to the patient's severe issues with stent on the right previously it was decided to hold off on stent placement. The scope was removed. An 20 Fr Coude catheter was placed. The patient was cleaned, aroused from anesthesia, and transferred to the pacu in stable condition having tolerated the procedure well with no complications. I was present and participated in all aspects of the procedure. The patient will be monitored in the PACU until transferred. Plan to remove catheter tomorrow if patient stable. Will monitor function. Can followup with [facility] in approx 1-2 months with repeat ARNOLDO. I attest to the content of the Intraoperative Record and any orders documented therein. Any exceptions are noted below.
[2025-05-06] MEDS: HYDROmorphone INJ 2 MG/ML SYR/VIAL IV PRN (13:45)
--- NOTE | 2025-05-06 13:45 | Communication Note ---
Date of Service: May 06, 2025 Patient presenting with chronic history of pseudoseizures over 10 years s/p brain tumor removal. Seen by psychiatry consults 1 month ago, seen not to be in a major mood episode, and recommended outpatient CBT given no acute modifiable treatments available. Psychiatric medication regimen reviewed, appears optimized, and no further recommendations to be made. Recent neurology w/u negative for epileptic seizures. Pt currently denies any change in the status of his mental health conditions. Unlikely his pseudoseizures are a result of active trauma response, depression, dissociation, interpersonal stress or secondary gain. Psychogenic nonepileptic seizures can be precipitated by increased psychological stress and pain. Recommend to continue outpatient psychiatry follow-up.
--- NOTE | 2025-05-06 13:53 | Fluoroscopy Report ---
FL retrograde includes kub CLINICAL HISTORY: B/L CYSTO STENT COMPARISON STUDY: None FLUOROSCOPY TIME: 53 seconds FLUOROSCOPY IMAGES: 4 EXPOSURE DOSE: 23 mGy FINDINGS: Fluoroscopy was provided for urologic procedure. IMPRESSION: Intraoperative fluoroscopy. ACT 112: Negative or not required by law. Electronically signed by: Keon Crump M.D. 05/06/2025 1:52 PM
--- NOTE | 2025-05-06 15:02 | Anesthesiology Progress Note ---
Date of Service May 06, 2025 Anesthesia Post Procedure Vital Signs Vital Signs: Temp Pulse Pulse Resp BP BP Pulse Ox 05/06/25 15:01 36.8 C 101 H 16 186/120 H 93 05/06/25 14:32 36.7 C 101 H 16 175/115 H 93 05/06/25 14:18 100 H 12 176/112 H 93 05/06/25 14:05 37.0 C 100 H 20 165/97 H 92 05/06/25 13:55 100 H 13 174/104 H 92 05/06/25 13:45 98 H 16 184/100 H 93 05/06/25 13:35 99 H 16 179/115 H 93 05/06/25 13:27 36.5 C 99 H 12 175/103 H 91 05/06/25 11:58 36.6 C 91 H 18 146/77 H 95 05/06/25 11:00 36.4 C L 91 H 18 126/78 91 05/06/25 07:37 36.5 C 80 18 145/83 H 100 05/06/25 07:19 81 18 94 05/06/25 07:18 80 05/06/25 02:56 36.3 C L 81 18 149/89 H 96 05/06/25 01:33 21 05/06/25 01:00 05/05/25 23:03 36.6 C 91 H 17 152/84 H 98 05/05/25 21:46 93 H 05/05/25 19:38 36.4 C L 92 H 19 172/84 H 98 05/05/25 18:07 102 H 18 95 05/05/25 15:58 36.7 C 100 H 24 147/86 H 96 05/05/25 15:11 Pulse Ox Pulse Ox Pulse Ox O2 Del Method O2 Del Method O2 Flow Rate O2 Flow Rate 05/06/25 15:01 Nasal Cannula 4 05/06/25 14:32 Nasal Cannula 3 05/06/25 14:18 Oxymask 4 05/06/25 14:05 Oxymask 4 05/06/25 13:55 Oxymask 3 05/06/25 13:45 Oxymask 6 05/06/25 13:35 Oxymask 6 05/06/25 13:27 Oxymask 6 05/06/25 11:58 Nasal Cannula 3 05/06/25 11:00 Room Air 06/16/25 07:37 Nasal Cannula 3 05/06/25 07:19 Nasal Cannula 3 05/06/25 07:18 05/06/25 02:56 Nasal Cannula 3 05/06/25 01:33 05/06/25 01:00 BiPAP 05/05/25 23:03 Nasal Cannula 3 05/05/25 21:46 05/05/25 19:38 Nasal Cannula 3 05/05/25 18:07 Nasal Cannula 3 05/05/25 15:58 Nasal Cannula 3 05/05/25 15:11 96 97 95 3 O2 Flow Rate O2 Flow Rate FiO2 05/06/25 15:01 05/06/25 14:32 05/06/25 14:18 05/06/25 14:05 05/06/25 13:55 05/06/25 13:45 05/06/25 13:35 05/06/25 13:27 05/06/25 11:58 05/06/25 11:00 05/06/25 07:37 05/06/25 07:19 05/06/25 07:18 05/06/25 02:56 05/06/25 01:33 40 05/06/25 01:00 05/05/25 23:03 05/05/25 21:46 05/05/25 19:38 05/05/25 18:07 05/05/25 15:58 05/05/25 15:11 3 0 Pain Intensity Right Flank: Pain Intensity: 10 Transfer of Care Handoff Completed per policy Notes Mental Status: alert / awake / arousable and participated in evaluation Nausea / Vomiting: adequately controlled Pain: adequately controlled Airway Patency, RR, SpO2: stable & adequate BP & HR: stable & adequate Hydration State: stable & adequate Anesthetic Complications: no major complications apparent and Pt Satisfied with anesthetic care
[2025-05-06] MEDS: KETOROLAC 30 MG/ML VIAL IV PRN (15:45)
[2025-05-06] MEDS: TAMSULOSIN HCL 0.4 MG CAP PO ONE (15:46)
[2025-05-06] MEDS: PHENAZOPYRIDINE HCL 200 MG TAB PO STA (15:46)
[2025-05-06] MEDS: MoRPHine SULFATE 2 MG/ML CARP IV PRN (19:33)
[2025-05-07 07:01] LABS: BUN Creatinine Ratio 6.9 (10-20); Calcium 8.7 mg/dl (8.6-10.3); Creatinine Clr Calc Pharmacy 34.7 ml/min; Magnesium 2.2 mg/dl (1.7-2.4); Potassium 5.1 mmol/L (3.5-5.1)
[2025-05-07] MEDS: SODIUM CHLORIDE 0.9% 1,000 ML IV SCH (09:01)
[2025-05-07 09:02] LABS: BUN Creatinine Ratio 7.1 (10-20); Calcium 8.5 mg/dl (8.6-10.3); Potassium 5.1 mmol/L (3.5-5.1)
--- NOTE | 2025-05-07 09:53 | Hospitalist Progress Note ---
Date of Service May 07, 2025 Assessment & Plan (1) Kidney stones: (2) COPD (chronic obstructive pulmonary disease): (3) Presence of Watchman left atrial appendage closure device: (4) Pseudoseizures: (5) Hypothyroidism: (6) Bipolar disorder: (7) Pituitary hypogonadism: (8) Chronic adrenal insufficiency: (9) CKD (chronic kidney disease), stage III: (10) Obesity: (11) Atrial fibrillation: (12) Panhypopituitarism: Plan 54-year-old male with past medical history of COPD/CORINA on oxygen via nasal cannula, noncompliant with CPAP, type 2 diabetes mellitus, morbid obesity, pseudoseizures, bipolar disorder, 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 #Bilateral kidney stones #Right ureteric stent in place #BPH #Hematuria #QUENTIN: Suspect obstructive picture Continue IV ceftriaxone (day 4/5) Urine culture shows no growth, less than 1000 CFU Continue Flomax Tylenol as needed, and oxycodone as needed for severe pain related to kidney stones Patient understands went cystoscopy with bilateral retrograde pyelogram, left ureteroscopy and stone basket extraction, right ureteroscopy with right laser lithotripsy, right stone extraction and right stent removal by Dr. Elliot Mendoza urologist on 05/06/2025: Stone analysis sent: Results pending Check renal ultrasound to assess for any obstruction Hold lisinopril in light of QUENTIN Stop Toradol Avoid nephrotoxic agents including NSAIDs, monitor renal function and electrolytes Patient now with new Welsh catheter post cystoscopy, maranda hematuria: Hold aspirin plus Plavix, spoke with urology and plan is for repeat cystoscopy for bilateral stent placement today #Pseudoseizures versus seizures Outpatient neurologist Dr. Ordonez Patient had multiple episodes overnight for which she has received 4 mg of IV Ativan Neurology saw the patient and initially recommended transfer to [facility] but after Dr. Ordonez spoke with neurologist Dr. Sweet at [facility], plan was to keep patient here as patient has had multiple transfers to [facility] with multiple video EEGs showing no epileptiform activity and consensus is that patient has pseudoseizures and they both recommended psychiatry consult Psychiatry wrote a note on 05/06/2025 and have recommended outpatient CBT, they reviewed psychiatry medications and no other recommendations made regarding medications and they recommend continuing outpatient psychiatry follow-up Seizure precautions Continue IV lacosamide, IV Keppra, IV Depakote Lacosamide, Keppra and Depakote levels sent per neurology recommendations on 05/04/2025: Results pending #CORINA noncompliant with CPAP #COPD - Uses home oxygen 2 lpm at rest and 4 lpm with activity - Continue home inhalers and prn neb #History of CVA #Nonobstructive coronary disease # Paroxysmal atrial fibrillation status post watchman's #Chronic diastolic congestive heart failure with preserved ejection fraction #Essential hypertension Continue Crestor plus Toprol-XL 25 mg daily Hold aspirin and Plavix in light of maranda hematuria: Resume based on urology recommendations post cystoscopy Reviewed patient's records, no history of PE/DVT and unclear why patient was also getting apixaban when he has a watchman's device Apixaban has been stopped. Telemetry monitoring shows sinus rhythm Hold lisinopril in light of QUENTIN I/O monitoring Daily weights Monitor vital signs Patient will need follow-up with cardiology as outpatient #Panhypopituitarism #Hypothyroidism Outpatient kennel keeper Dr. Martínez Voss Continue levothyroxine 150 mcg p.o. daily Continue desmopressin twice daily Continue home dose of hydrocortisone 20 mg every morning and 10 mg every afternoon Monitor sodium level and electrolytes #Type 2 diabetes mellitus A1c is 6.0 Pharmacy managing glycemic control #Bipolar disorder Outpatient psychiatrist is Dr. Woods Continue lithium, mirtazapine, prazosin, propranolol, Effexor, trazodone and aripiprazole Psychiatry consulted per neurology recommendations Psychiatry wrote a note on 05/06/2025 and have recommended outpatient CBT, they reviewed psychiatry medications and no other recommendations made regarding medications and they recommend continuing outpatient psychiatry follow-up #Chronic low back pain Tylenol as needed Continue duloxetine #Morbid obesity BMI is 36.7 Outpatient follow-up with PCP CODE STATUS: DNR/DNI DVT prophylaxis: Bilateral SCD Discharge planning: Based on clinical improvement, urology recommendations postprocedure likely in the next 48 to 72 hours Care plan discussed with patient, nursing staff Admission and Anticipated Discharge Date Admission Date: May 03, 2025 Subjective Patient seen and examined Still complaining of right flank pain, feels it is worse than admission He has a Welsh catheter placed after cystoscopy yesterday which has maranda blood with not much output Creatinine has gone up abruptly Patient denies any fever or chills, denies any chest pain or shortness of breath Physical Exam Physical Exam: General: No acute distress Psych: Awake and alert, oriented to place and person HEENT: Anicteric sclera CVS: Regular rate and rhythm Lungs: Bilateral air entry, no wheezing noted Abdomen: Soft, nontender, no rebound, no guarding Ext: No lower extremity edema, no calf tenderness Neuro: No focal deficits noted, able to move all 4 extremities : Indwelling Welsh catheter with hematuria noted Results & Data Results & Data Vital Signs (Past 12 Hours) Vital Signs Temp Pulse Pulse Resp BP BP Pulse Ox 05/07/25 07:52 05/07/25 07:40 36.6 C 90 18 150/88 H 98 05/07/25 07:24 91 H 05/07/25 07:17 80 20 94 05/07/25 03:45 18 05/07/25 03:24 36.6 C 91 H 22 166/97 H 96 05/06/25 23:44 36.5 C 103 H 16 162/90 H 96 O2 Del Method O2 Flow Rate FiO2 05/07/25 07:52 Nasal Cannula 2 05/07/25 07:40 Nasal Cannula 2 05/07/25 07:24 05/07/25 07:17 Nasal Cannula 4 05/07/25 03:45 40 05/07/25 03:24 Room Air 05/06/25 23:44 Room Air Laboratory Results 05/07/25 05/07/25 05/07/25 08:01 07:30 06:12 Sodium 138 139 Potassium 5.1 5.1 D Chloride 103 105 Carbon Dioxide 24 26 Anion Gap 11 8 BUN 23 21 Creatinine 3.22 H 3.06 H D Est Cr Clr Drug Dosing 33.0 34.7 eGFR 21.71 23.08 BUN/Creatinine Ratio 7.1 L 6.9 L Glucose 167 H 136 H POC Glucose 164 H Calcium 8.5 L 8.7 Magnesium 2.2 05/06/25 05/06/25 05/06/25 20:38 14:51 13:35 Sodium Potassium Chloride Carbon Dioxide Anion Gap BUN Creatinine Est Cr Clr Drug Dosing eGFR BUN/Creatinine Ratio Glucose POC Glucose 146 H 151 H 149 H Calcium Magnesium 05/06/25 11:39 Sodium Potassium Chloride Carbon Dioxide Anion Gap BUN Creatinine Est Cr Clr Drug Dosing eGFR BUN/Creatinine Ratio Glucose POC Glucose 142 H Calcium Magnesium PG Care Time/CCT Total # of Minutes Spent Total Time Spent with Patient: Total time spent is greater than 50% in coordination of care (as documented) at patient's floor/unit and/or counseling patient: Coding Level of Care Code 30701 SUB INP/OBS CARE 3/50MIN Diagnoses Kidney stones N20.0 COPD (chronic obstructive pulmonary disease) J44.9 Presence of Watchman left atrial appendage closure device Z95.818 Pseudoseizures R56.9 Hypothyroidism E03.9 Bipolar disorder F31.9 Pituitary hypogonadism E23.0 Chronic adrenal insufficiency E27.40 CKD (chronic kidney disease), stage III N18.30 Obesity E66.9 Atrial fibrillation I48.91 Atrial fibrillation type: unspecified Panhypopituitarism E23.0 (11) Atrial fibrillation Atrial fibrillation type: unspecified Qualified Code(s): I48.91 - Unspecified atrial fibrillation
--- NOTE | 2025-05-07 11:13 | Ultrasound Report ---
RENAL ULTRASOUND HISTORY: QUENTIN COMPARISON: 05/03/2025 FINDINGS: Welsh catheter is present and the urinary bladder is decompressed, not well evaluated. Right kidney measures 15 x 5 cm. There is minimal right hydronephrosis. There is normal Doppler flow. No renal calculi seen. Left kidney measures 14 x 5 cm. There is no hydronephrosis. No gross renal calculi are seen. There is Doppler flow. Renal cortical thickness is normal. IMPRESSION: Minimal hydronephrosis on the right. No hydronephrosis on the left. ACT 112: Negative or not required by law. Electronically signed by: Keon Crump M.D. 05/07/2025 11:11 AM
--- NOTE | 2025-05-07 11:44 | Urology Progress Note ---
Date of Service May 07, 2025 Assessment & Plan (1) Kidney stones: Plan: Patient POD #1 s/p Cystoscopy with bilateral retrograde pyelogram; Left Ureteroscopy and Stone Basket extraction; Right Ureteroscopy with Right Laser Lithotripsy, Right stone extraction, and Right Stent Removal Patient afebrile, hemodynamically stable Lab work reviewedcreatinine 3.06 this morning, repeat creatinine 3.22 Minimal urine output overnight and this morning, bladder scan 0 mL Renal ultrasound today showed minimal hydronephrosis on the right, no hydronephrosis on the left; Welsh in place, bladder decompressed Patient subjectively having bilateral flank discomfort and lower abd/pelvic discomfort Reviewed discussed lab work and findings with patient Case reviewed and discussed with Dr. King Recommend cystoscopy and bilateral stent placement to maximize drainage Patient made n.p.o. for surgical intervention He is agreeable to the plan Proceed to OR for cystoscopy and bilateral stent placement Continue supportive care medical management per hospital medicine service Gu will follow Admission and Anticipated Discharge Date Admission Date: May 03, 2025 Supervising Physician Co-Signing Physician Notes Limited urine output today, rising creatinine Moderate flank pain Will plan for cystoscopy bilateral stent placement now Subjective Patient seen and examined at bedside this morning He reports bilateral flank pain, some pelvic pain Welsh catheter intact, small amount of bloody urine Minimal urine output overnight and this morning No fever or chills Creatinine 3.06 this morning, repeat was 3.22 RN performed bladder scan - 0 mL Renal ultrasound today showed minimal hydronephrosis on the right, no hydronephrosis on the left; Welsh in place, bladder decompressed Review of Systems Constitutional: as per Subjective / HPI Genitourinary: + as per Subjective / HPI Physical Exam Constitutional: no acute distress Respiratory: no respiratory distress and no labored breathing Neurologic: moves all extremities and awake Psychiatric: Orientation: alert and oriented x 3 Genitourinary: Welsh with small amount of bloody urine Results & Data Vital Signs (Past 12 Hours) Vital Signs Temp Pulse Pulse Resp BP BP Pulse Ox 05/07/25 11:31 36.5 C 87 18 112/72 98 05/07/25 07:52 05/07/25 07:40 36.6 C 90 18 150/88 H 98 05/07/25 07:24 91 H 05/07/25 07:17 80 20 94 05/07/25 03:45 18 05/07/25 03:24 36.6 C 91 H 22 166/97 H 96 05/06/25 23:44 36.5 C 103 H 16 162/90 H 96 O2 Del Method O2 Flow Rate FiO2 05/07/25 11:31 Nasal Cannula 2 05/07/25 07:52 Nasal Cannula 2 05/07/25 07:40 Nasal Cannula 2 05/07/25 07:24 05/07/25 07:17 Nasal Cannula 4 05/07/25 03:45 40 05/07/25 03:24 Room Air 05/06/25 23:44 Room Air PG Care Time/CCT Total # of Minutes Spent Total Time Spent with Patient: Total time spent is greater than 50% in coordination of care (as documented) at patient's floor/unit and/or counseling patient: Coding Level of Care Code 89145 SUB INP/OBS CARE 2/35MIN Diagnoses Kidney stones N20.0
[2025-05-07 12:34] LABS: BUN Creatinine Ratio 6.6 (10-20); Calcium 8.8 mg/dl (8.6-10.3); Creatinine Clr Calc Pharmacy 27.9 ml/min
[2025-05-07] MEDS ORDERED: PROPOFOL IV EMULSION 10 MG/ML 20 ML VIAL IV ONE ×2 (14:59→15:01)
[2025-05-07] MEDS ORDERED: ONDANSETRON INJ 2 MG/ML 2 ML VIAL ONE (14:59)
[2025-05-07] MEDS ORDERED: LIDOCAINE 2% 2 ML VIAL/AMP(20MG/ML) INFIL ONE (14:59)
[2025-05-07] MEDS ORDERED: DEXAMETHASONE SOD INJ 4 MG/ML VIAL ONE (14:59)
[2025-05-07] MEDS ORDERED: MIDAZOLAM HCL 1 MG/ML 2ML VIAL ONE (15:00)
[2025-05-07] MEDS ORDERED: fentaNYL citrate PF 100 MCG/2 ML VIAL ONE (15:00)
[2025-05-07] MEDS ORDERED: ROCURONIUM BROMIDE 10 MG/ML 5 ML VIAL IV ONE (15:09)
[2025-05-07] MEDS ORDERED: SUCCINYLCHOLINE 100MG/5ML SYR IV ONE (15:10)
--- NOTE | 2025-05-07 15:11 | Anesthesiology Consultation ---
Date of Service May 07, 2025 Assessment & Plan Chart Review Chart Review: Acceptable Risk for Surgery Consults Requested none History Surgery Operation Date: 05/06/25 10:50 Proposed Procedures p Cystoscopy, Bilateral Ureteroscopy and Laser Lithotripsy, Right Stent Exchange, Possible Left Stent - Elliot Mendoza DO Operation Date: 05/07/25 12:05 Proposed Procedures p Cystoscopy, Bilateral Ureteral Stent Placement - Glynn King MD Height/Weight Height: 5 ft 10 in Weight: 118 kg Allergies Allergy/AdvReac Type Severity Reaction Status Date / Time clindamycin Allergy Intermediate SWELLING Verified 05/06/25 11:57 Iodinated Contrast Media Allergy Intermediate face/eye Verified 05/06/25 11:57 swelling Quinolones Allergy Intermediate HIVES Verified 05/06/25 11:57 tomato AdvReac Unknown Unknown Verified 05/06/25 11:57 Medications Home Medications Medication Instructions Recorded Confirmed Last Taken lithium carbonate 300 mg tablet 300 mg PO AMHS 06/04/22 05/03/25 05/03/25 08:00 mirtazapine 30 mg tablet (Remeron) 30 mg PO HS 06/23/22 05/03/25 05/02/25 fluticasone propionate 50 1 spray intranasal HS PRN allergy 03/16/23 05/03/25 Unknown mcg/actuation nasal symptoms #16 grams spray,suspension (Flonase Allergy Relief) FreeStyle Rosalie 2 [place] (flash #1 ea 05/13/23 05/02/25 Unknown glucose scanning reader) blood sugar diagnostic (RiffRaffTouch #150 ea 11/22/23 05/02/25 Unknown Verio test strips) blood-glucose meter (OneTouch #1 ea 11/22/23 05/02/25 Unknown Verio Reflect Meter) insulin syringe-needle U-100 1 mL #300 ea 11/22/23 05/02/25 Unknown 30 gauge x 1/2" (BD Insulin Syringe Ultra-Fine) lancets 33 gauge (OneTouch Delica #150 ea 11/22/23 05/02/25 Unknown Plus Lancet) albuterol sulfate 90 mcg/actuation 2 inh inhalation Q6H PRN shortness 02/24/24 05/03/25 Unknown aerosol inhaler (Ventolin HFA) of breath or wheezing #6.7 grams dutasteride 0.5 mg capsule 0.5 mg PO QAM 05/17/24 06/13/25 06/13/25 glucagon 3 mg/actuation nasal 3 mg intranasal ONCE PRN Severe 04/06/24 05/03/25 Unknown spray (Baqsimi) Hypoglycemia aripiprazole 5 mg tablet 5 mg PO QAM 05/29/24 05/03/25 05/03/25 insulin glargine 100 unit/mL (3 12 unit subcut HS 07/19/24 05/03/25 05/02/25 mL) subcutaneous pen (Lantus Solostar U-100 Insulin) ipratropium 0.5 mg-albuterol 3 mg 3 ml inhalation QID PRN wheezing 07/31/24 05/03/25 Unknown (2.5 mg base)/3 mL nebulization #90 mL soln nebulizers (Compact Compressor #1 ea 07/31/24 05/02/25 Unknown Nebulizer) Botox 200 unit injection See Rx Instructions IM .COMPLEX #1 09/18/24 05/03/25 Unknown (onabotulinumtoxinA) ea rosuvastatin 20 mg tablet 20 mg PO QAM #90 tabs 09/19/24 05/03/25 05/03/25 pantoprazole 40 mg tablet,delayed 40 mg PO BID #60 tabs 09/21/24 05/03/25 05/03/25 08:00 release trazodone 100 mg tablet 100 mg PO HS 10/03/24 05/03/25 05/02/25 pen needle, diabetic 32 gauge x #100 ea 10/23/24 05/02/25 Unknown 5/32" (BD Vy 2nd Gen Pen Needle) bumetanide 1 mg tablet 1 mg PO QAM #30 tabs 10/26/24 05/03/25 05/03/25 vitamin B complex (Vitamins B 1 cap PO QAM #30 caps 10/26/24 05/03/25 05/03/25 Complex capsule) lorazepam 0.5 mg tablet 0.5 mg PO DAILY PRN Seizure 11/23/24 05/03/25 Unknown Activity levetiracetam 1,000 mg tablet 1,000 mg PO Q12H #60 tabs 11/26/24 05/03/25 05/03/25 08:00 ferrous sulfate 325 mg (65 mg 325 mg PO Q OTHER DAY 11/27/24 05/03/25 05/02/25 iron) tablet desmopressin 0.2 mg tablet 0.4 mg (2 x 0.2 mg) PO BID #120 11/30/24 05/03/25 05/03/25 08:00 tabs metoprolol succinate 25 mg 25 mg PO HS #90 tabs 11/30/24 05/03/25 05/02/25 tablet,extended release 24 hr somatropin 5 mg/1.5 mL (3.3 mg/mL) 0.3 mg (0.09 mL) subcut QPM #2 11/30/24 05/03/25 05/02/25 subcutaneous pen injector syringes (Norditropin FlexPro) clopidogrel 75 mg tablet (Plavix) 75 mg PO QPM 12/03/24 05/03/25 05/02/25 lacosamide 150 mg tablet 150 mg PO BID #60 tabs 12/26/24 05/03/25 05/03/25 08:00 arformoterol 15 mcg/2 mL solution 2 ml inhalation BID 01/16/25 05/03/25 05/03/25 08:00 for nebulization (Brovana) oxybutynin chloride 5 mg 5 mg PO QAM 01/16/25 05/03/25 05/03/25 tablet,extended release 24 hr Oxygen Home 01/30/25 05/02/25 Unknown metformin 1,000 mg tablet 1,000 mg PO BID #180 tabs 02/26/25 05/03/25 05/03/25 08:00 rimegepant 75 mg disintegrating 75 mg PO DAILY PRN Migraine 02/28/25 05/03/25 Unknown tablet (Nurtec ODT) Headache #16 tabs magnesium oxide 400 mg (241.3 mg 400 mg PO DAILY 03/01/25 05/03/25 05/03/25 magnesium) tablet potassium chloride 10 mEq 10 meq PO QPM 03/01/25 05/03/25 05/02/25 tablet,extended release testosterone 2 pump topical PM #75 grams 03/18/25 05/03/25 05/02/25 nystatin 100,000 unit/gram topical 1 applic topical BID PRN Other 03/19/25 05/03/25 Unknown cream quetiapine 50 mg tablet,extended 50 mg PO QAM 03/19/25 05/03/25 05/03/25 release 24 hr venlafaxine 150 mg 150 mg PO QAM 03/19/25 05/03/25 05/03/25 capsule,extended release 24 hr formoterol fumarate 20 mcg/2 mL 20 mcg (2 mL) NEB BIDR #60 vials 03/24/25 05/03/25 05/03/25 08:00 solution for nebulization (Perforomist) acetylcysteine 200 mg/mL (20 %) 2 ml inhalation BID PRN Chest 03/26/25 05/03/25 Unknown solution congestion #100 mL cholecalciferol (vitamin D3) 50 50 mcg PO QPM #90 caps 03/26/25 05/03/25 05/02/25 mcg (2,000 unit) capsule propranolol 120 mg capsule,24 120 mg PO HS 03/26/25 05/03/25 05/02/25 hr,extended release sodium chloride 7 % for 1 inh inhalation BID #240 mL 03/26/25 05/03/25 05/03/25 08:00 nebulization tiotropium bromide 2.5 2 puff inhalation DAILY #4 grams 03/26/25 05/03/25 05/03/25 mcg/actuation mist for inhalation (Spiriva Respimat) apixaban 5 mg tablet (Eliquis) 5 mg PO Q12H #180 tabs 04/01/25 05/03/25 05/03/25 08:00 prazosin 5 mg capsule 5 mg PO HS 04/05/25 05/03/25 05/02/25 ramelteon 8 mg tablet 8 mg PO HS 04/05/25 05/03/25 05/02/25 venlafaxine 75 mg capsule,extended 75 mg PO QAM 04/05/25 05/03/25 05/03/25 release 24 hr duloxetine 30 mg capsule,delayed 30 mg PO HS #30 caps 04/12/25 05/03/25 05/02/25 release ondansetron 8 mg disintegrating 8 mg PO Q8H PRN nausea and 04/29/25 05/03/25 Unknown tablet vomiting #30 tabs phenazopyridine 200 mg tablet 200 mg PO TID #9 tabs 04/29/25 05/03/25 05/03/25 14:00 (Pyridium) aspirin 81 mg capsule 81 mg PO QPM 05/03/25 05/03/25 05/02/25 budesonide 0.5 mg/2 mL suspension 0.5 mg inhalation QPM 05/03/25 05/03/25 05/02/25 for nebulization divalproex 500 mg tablet,delayed 1,000 mg PO QAM 05/03/25 05/03/25 05/03/25 release duloxetine 60 mg capsule,delayed 60 mg PO QAM 05/03/25 05/03/25 05/03/25 release famotidine 20 mg tablet (Acid 20 mg PO QAM 05/03/25 05/03/25 05/03/25 Pancake Professional (famotidine)) hydrocortisone 10 mg tablet 10 - 20 mg PO UD 05/03/25 05/03/25 Unknown lisinopril 40 mg tablet 40 mg PO QAM 05/03/25 05/03/25 05/03/25 oxycodone-acetaminophen 5 mg-325 1.5 tab PO Q6H PRN pain (scale 05/03/25 05/03/25 Unknown mg tablet (Percocet) score 7-10) tirzepatide 5 mg/0.5 mL 5 mg subcut WK 05/03/25 05/03/25 04/28/25 subcutaneous pen injector FreeStyle Rosalie 2 Sensor (flash #6 ea 05/06/25 Unknown glucose sensor) levothyroxine 150 mcg tablet 150 mcg PO DAILYBB #30 tabs 05/06/25 Unknown (Synthroid) Active Medications Generic Name Dose Route Start Last Admin Trade Name Freq PRN Reason Stop Dose Admin Acetaminophen 1,000 mg 05/04/25 21:00 05/07/25 13:19 Acetaminophen 500 Mg Tab PO 06/03/25 20:59 1,000 mg TID OBDULIO Administration Aripiprazole 5 mg 05/04/25 09:00 05/07/25 09:04 Aripiprazole 5 Mg Tab PO 06/03/25 08:59 5 mg QAM OBDULIO Administration Aspirin 81 mg 05/04/25 21:00 05/06/25 20:04 Aspirin 81 Mg Ectab PO 06/03/25 20:59 81 mg QPM OBDULIO Administration Budesonide 0.5 mg 05/04/25 21:00 05/06/25 19:52 Budesonide 0.5 Mg/2 Ml Vial (Pulmicort) INH 06/03/25 20:59 0.5 mg QPM OBDULIO Administration Clopidogrel Bisulfate 75 mg 05/04/25 21:00 05/06/25 20:04 Clopidogrel Bisulfate 75 Mg Tab PO 06/03/25 20:59 75 mg QPM OBDULIO Administration Desmopressin Acetate 0.4 mg 05/04/25 09:00 05/07/25 09:02 Desmopressin Acetate 0.1 Mg Tab PO 06/03/25 08:59 0.4 mg BID OBDULIO Administration Divalproex Sodium 1,000 mg 05/04/25 09:00 05/04/25 13:03 Divalproex Delay Release 500 Mg Tab PO 06/03/25 08:59 Not Given QAM OBDULIO Duloxetine HCl 60 mg 05/04/25 09:00 05/07/25 09:03 Duloxetine Hcl 60 Mg Cap PO 06/03/25 08:59 60 mg QAM OBDULIO Administration Duloxetine HCl 30 mg 05/04/25 21:00 05/06/25 20:09 Duloxetine Hcl 30 Mg Cap PO 06/03/25 20:59 30 mg HS OBDULIO Administration Finasteride 5 mg 05/04/25 09:00 05/07/25 09:04 Finasteride 5 Mg Tab PO 06/03/25 08:59 5 mg QAM OBDULIO Administration Formoterol Fumarate 20 mcg 05/04/25 07:00 05/07/25 07:17 Formoterol 20 Mcg/2 Ml Vial INH 06/03/25 06:59 20 mcg BIDR OBDULIO Administration Hydrocortisone 10 mg 05/04/25 14:00 05/07/25 13:19 Hydrocortisone 10 Mg Tab PO 06/03/25 13:59 10 mg 1400 OBDULIO Administration Hydrocortisone 20 mg 05/04/25 09:00 05/07/25 09:05 Hydrocortisone 10 Mg Tab PO 06/03/25 08:59 20 mg QAM OBDULIO Administration Ceftriaxone Sodium 2,000 mg in 50 mls @ 100 mls/hr 05/04/25 02:00 05/07/25 02:43 Rocephin IV 05/09/25 01:59 Infused Q24H OBDULIO Infusion Valproic Acid 500 mg/ Dextrose 55 mls @ 55 mls/hr 05/04/25 13:00 05/07/25 10:22 IV 06/03/25 12:59 Infused BID OBDULIO Infusion Lacosamide 150 mg/ Sodium 65 mls @ 130 mls/hr 05/04/25 13:00 05/07/25 09:33 Chloride IV 06/03/25 12:59 Infused BID OBDULIO Infusion Sodium Chloride 1,000 mls @ 100 mls/hr 05/07/25 08:15 05/07/25 09:01 Nss IV 05/10/25 08:14 100 mls/hr .Q10H OBDULIO Administration Insulin Aspart 0 units 05/06/25 16:30 05/07/25 11:11 Insulin Aspart Per Unit Charge SC 06/05/25 11:59 Not Given ACHS OBDULIO Insulin Glargine 0 units 05/04/25 21:00 05/06/25 20:42 Lantus Per Unit Charge SQ 06/03/25 20:59 Not Given HS OBDULIO Protocol Lacosamide 150 mg 05/04/25 09:00 05/04/25 10:04 Lacosamide 50 Mg Tablet PO 06/03/25 08:59 Not Given BID OBDULIO Levetiracetam 1,000 mg 05/04/25 09:00 05/04/25 10:03 Levetiracetam 500 Mg Tab PO 06/03/25 08:59 Not Given BID OBDULIO Levetiracetam 1,000 mg 05/04/25 21:00 05/07/25 09:03 Levetiracetam 500 Mg/5 Ml Vial IV 06/03/25 20:59 1,000 mg Q12H OBDULIO Administration Levothyroxine Sodium 150 mcg 05/04/25 06:30 05/07/25 06:26 Levothyroxine Sodium 150 Mcg Tablet PO 06/03/25 06:29 150 mcg DAILYBB OBDULIO Administration Lisinopril 40 mg 05/06/25 09:00 05/06/25 08:44 Lisinopril 40 Mg Tab PO 06/05/25 08:59 40 mg QAM OBDULIO Administration Dinosaur Carbonate 300 mg 05/04/25 09:00 05/07/25 09:07 Dinosaur Carbonate 300 Mg Tab PO 06/03/25 08:59 300 mg AMHS OBDULIO Administration Magnesium Oxide 400 mg 05/06/25 09:00 05/07/25 09:02 Magnesium Oxide 400 Mg Tab PO 06/05/25 08:59 400 mg BID OBDULIO Administration Melatonin 3 mg 05/04/25 01:16 05/06/25 20:40 Melatonin 3 Mg Tab PO 06/03/25 01:15 3 mg HS PRN Administration Sleep Metoprolol Succinate 25 mg 05/04/25 21:00 05/06/25 20:07 Metoprolol Succ 25mg Ext Rel Tab PO 06/03/25 20:59 25 mg HS OBDULIO Administration Mirtazapine 30 mg 05/04/25 21:00 05/06/25 20:05 Mirtazapine Tab 15 Mg Tab PO 06/03/25 20:59 30 mg HS OBDULIO Administration Miscellaneous 1 each 05/04/25 08:00 05/07/25 14:10 (Ramelteon 8 Mg Tablet)~Order Awaiting Action N/A 06/03/25 07:59 Not Given QS OBDULIO Morphine Sulfate 2 mg 05/06/25 16:00 05/07/25 14:27 Morphine Sulfate 2 Mg/Ml Carp IV 05/20/25 15:59 2 mg Q4 PRN Administration Pain Oxycodone HCl 5 mg 05/05/25 09:07 05/07/25 02:09 Oxycodone Hcl Ir 5 Mg Tab (Immediate Release) PO 05/19/25 09:06 5 mg TID PRN Administration Severe Pain (Scale 7, 8, 9,10) Pantoprazole Sodium 40 mg 05/04/25 09:00 05/07/25 09:04 Pantoprazole 40 Mg Tab PO 06/03/25 08:59 40 mg BID OBDULIO Administration Polyethylene Glycol 17 gm 05/05/25 09:00 05/07/25 09:07 Polyethylene (Miralax) 17 Gm Pack PO 06/04/25 08:59 Not Given DAILY OBDULIO Prazosin HCl 5 mg 05/04/25 21:00 05/06/25 20:06 Prazosin Hcl 1 Mg Cap PO 06/03/25 20:59 5 mg HS OBDULIO Administration Propranolol HCl 120 mg 05/04/25 21:00 05/06/25 20:07 Propranolol Hcl 60 Mg La Cap PO 06/03/25 20:59 120 mg HS OBDULIO Administration Quetiapine Fumarate 50 mg 05/04/25 09:00 05/07/25 09:02 Quetiapine Fumarate 50 Mg Tabcr PO 06/03/25 08:59 50 mg QAM OBDULIO Administration Rosuvastatin Calcium 20 mg 05/04/25 09:00 05/07/25 09:04 Rosuvastatin Calcium 20 Mg Tab PO 06/03/25 08:59 20 mg QAM OBDULIO Administration Sennosides 17.2 mg 05/05/25 21:00 05/06/25 20:06 Senna 8.6 Mg Tab PO 06/04/25 20:59 Not Given HS OBDULIO Tamsulosin HCl 0.4 mg 05/04/25 09:00 05/07/25 09:03 Tamsulosin Hcl 0.4 Mg Cap PO 06/03/25 08:59 0.4 mg QAM OBDULIO Administration Trazodone HCl 100 mg 05/04/25 21:00 05/06/25 20:06 Trazodone Hcl 100 Mg Tab PO 06/03/25 20:59 100 mg HS OBDULIO Administration Umeclidinium [place] 1 puffs 05/04/25 09:00 05/07/25 09:07 Umeclidinium [place] 62.5mcg/Blister 7 Puffs/Inhaler INH 06/03/25 08:59 1 puffs DAILY OBDULIO Administration Venlafaxine HCl 75 mg 05/04/25 09:00 05/07/25 09:04 Venlafaxine Hcl Xr 75 Mg Capxr PO 06/03/25 08:59 75 mg QAM OBDULIO Administration Venlafaxine HCl 150 mg 05/04/25 09:00 05/07/25 09:03 Venlafaxine Hcl Xr 150 Mg Capxr PO 06/03/25 08:59 150 mg QAM OBDULIO Administration NPO Date Last Intake of Fluids: 05/07/25 Time Last Intake of Fluids: 08:00 Last Intake of Fluids Comment: sips of water with pills Date Last Intake of Solids: 05/07/25 Time Last Intake of Solids: 08:00 Past Medical History Medical History (Updated 05/04/25 @ 13:55 by Kam Miller MD) History of pneumonia (03/2025) states has been admitted for total of 36 days ytd at [facility] for pneumonia, last was approxl 1 month ago Ocular hypertension Ulcerative colitis Mixed hyperlipidemia Lumbar stenosis with neurogenic claudication Idiopathic polyneuropathy Essential tremor Demyelinating disease Compartment syndrome of lower extremity (02/2025) per hx Chronic venous insufficiency Back pain at L4-L5 level Arthralgia Depression with anxiety Hx of fall (11/2024) History of dysphagia Hematuria On home O2 4 L nc History of recent hospitalization states has been in hospital 36 days this year so far with pneumonia- last was approx 1 month ago Sepsis Pyelonephritis Urinary tract obstruction due to kidney stone Lactic acidosis LPRD (laryngopharyngeal reflux disease) Severe obesity (BMI 35.0-35.9 with comorbidity) Uncontrolled type 2 diabetes mellitus with hyperglycemia Suspect low glycation index meaning his A1c is typically about 2 points lower than what his average glucose would suggest. Hypothyroidism Hypertension Non-occlusive coronary artery disease Acute dehydration hx Witnessed seizure-like activity Nonepileptic episode Chronic narcotic dependence COPD with exacerbation (03/2025) follows with dr. mccarthy (last seen while in hospital at [facility] with pneumonia ~) Anti-cyclic citrullinated peptide antibody positive Restrictive lung disease follows with dr. mccarthy, on O2 4L nc at all times Abnormal PFTs (pulmonary function tests) Bipolar disorder (10/11/22) Obstructive sleep apnea cpap 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 Follows with endocrinology- Secondary adrenal insufficiency Transient alteration of awareness Chronic adrenal insufficiency Leukocytosis Acute asthma exacerbation hx Acute on chronic hypoxic respiratory failure O2 4L nc Migraine Hematoma Growth hormone deficiency Diaphoresis hx Acute hypoxic respiratory failure hx Influenza A (12/2024) hx- Status epilepticus (09/13/24) Knee hemarthrosis, right (09/13/24) Acute on chronic anemia (09/13/24) Acute metabolic encephalopathy (09/13/24) hx Laceration of toe of right foot Closed fracture of right fibula with malunion Right fibular fracture hx Acute on chronic respiratory failure with hypoxia and hypercapnia Shortness of breath only if not wearing oxygen Chronic respiratory failure with hypoxia Obesity CKD (chronic kidney disease), stage III Peripheral edema Atrial fibrillation (02/15/24) no cardioversion- has loop recorder and watchmans device, follows with dr. kilgore (03/2025 while inpt.) Chronic low back pain Panhypopituitarism Lumbosacral radiculopathy Toxic encephalopathy Chest pain hx Acute dyspnea hx Acute CHF hx Hypoglycemia hx Syncope and collapse Reason for loop recorder No recent issues since bed bound from femur fracture in Sep 2022 per patient Internal hemorrhoids Recurrent seizures (05/01/25) goes sometimes months without seizures, then may may have 2 in one day- last seizure- 05/01/25- grand mal, lost control of bowel and bladder- informed neuro, dr. villa- told to stay on meds (last saw dr. villa on 04/30/25) Pituitary diabetes insipidus Spondylolysis, lumbar region Right lumbar radiculopathy HTN (hypertension) Adrenal insufficiency Pituitary adenoma Hyperactive gag reflex BRCA gene positive tested positive in Aug 2023 [place] Family history of BRCA gene mutation PTSD (post-traumatic stress disorder) Epidural lipomatosis Chronic left sacroiliac pain Benzodiazepine overdose hx Presence of cardiac device Loop recorder > placed at [facility]- last checked fall 2023 Hx of fracture of foot Sep 2022- right > cast since removed > still gets painful Fracture of fibula, right, closed Cerebral concussion May 2023 during seizure > no further issues Orthostatic hypotension Sensorineural hearing loss of both ears Rectal bleeding on occasion History of COVID-19 10/2021 - fatigue; resolved. Mitral valve regurgitation follows with Dr. kilgore Vertigo Lower extremity edema Elevated LFTs Bilateral hand pain Pituitary neoplasm Dx'ed in 2001- s/p surgical resection and XRT Repeat surgery in 2018 secondary to tumor regrowth at [facility] Prostate mass benign Bladder mass benign Past Family History Family History Grandmother (Paternal) Family history of diabetes mellitus Aunt Family history of diabetes mellitus Uncle Family history of diabetes mellitus Father Prostate cancer Heart disease Osteoarthritis Mother Cardiac disorder Grandmother (Maternal) Myocardial infarction Other Asthma Cancer Hypertension No family history of adverse response to anesthesia No family history of bleeding disorder Stroke Denies family history of Ovarian cancer Breast cancer Colorectal cancer Past Surgical History Surgical History Presence of Watchman left atrial appendage closure device (02/2024) eric History of arthroplasty of left knee (2014) S/P TURP (status post transurethral resection of prostate) [place] of [place] [facility] [place] History of cardiac cath (07/2021) 07/2021 - no stents- no mi - [facility]- follows with dr. kilgore S/P epidural steroid injection History of lithotripsy Status post right foot surgery replaced 5th metatarsal--hardware in place History of bladder surgery remove mass History of prostate surgery (2017) remove mass- not malignant History of colonoscopy History of esophagogastroduodenoscopy (EGD) History of tooth extraction History of wisdom tooth extraction History of brain surgery x2---2004 @ [facility] [place], 2018 @ [facility]--for brain tumors > caused epilepsy Social History Smoking Status: Never smoker tobacco type: smokeless tobacco Do You Dip or Chew Tobacco: No Hx Alcohol Use: No alcohol intake frequency: holidays/special occasions only Hx Substance Use: No substance use type: does not use Last Used Substance: Just Prior to Arrival Last Used Substance Other:: Unable to obtain due to patient condition. Physical Exam Vital Signs Last Vital Signs Temp 36.9 C 05/07/25 14:54 Pulse 85 05/07/25 14:54 Resp 20 05/07/25 14:54 BP 131/75 05/07/25 14:54 Pulse Ox 97 05/07/25 14:54 O2 Del Method Room Air 05/07/25 14:54 O2 Flow Rate 2 05/07/25 11:31 FiO2 40 05/07/25 03:45 Testing Laboratory Results 05/06/25 06:18 05/07/25 11:58 Urine Color Red 05/03/25 19:49 Urine Appearance Clear (Clear) 05/03/25 19:49 Urine pH 7.5 (4.5-7.5) 05/03/25 19:49 Ur Specific [place] 1.006 (1.000-1.030) 05/03/25 19:49 Urine Protein 2+ (Negative) H 05/03/25 19:49 Urine Glucose (UA) Negative (Negative) 05/03/25 19:49 Urine Ketones Negative (Negative) 05/03/25 19:49 Urine Nitrite Negative (Negative) 05/03/25 19:49 Ur Leukocyte Esterase 2+ (Negative) H 05/03/25 19:49 Urine WBC (Auto) 11-20 /hpf (0-5) H 05/03/25 19:49 Urine RBC (Auto) >20 /hpf (0-2) H 05/03/25 19:49 U Hyaline Cast (Auto) 0-2 /lpf (0-2) 05/03/25 19:49 U Epithel Cells (Auto) 0-2 /hpf (0-2) 05/03/25 19:49 Urine Bacteria (Auto) None Seen (None Seen) 05/03/25 19:49 05/03/25 19:49 Urine Culture - Final Urine,Clean Catch No growth - less than 1,000 colonies/mL. 05/07/25 05/07/25 11:06 07:30 POC Glucose 142 H 164 H
[2025-05-07] MEDS ORDERED: ePHEDrine sulfate 50 MG/ML AMP IV PRN (15:15)
[2025-05-07] MEDS ORDERED: PROMETHAZINE HCL 6.25 MG in SODIUM CHLORIDE 0.9% 50 ML IV PRN (15:15)
[2025-05-07] MEDS ORDERED: HYDROmorphone INJ 2 MG/ML SYR/VIAL IV PRN (15:15)
[2025-05-07] MEDS ORDERED: ONDANSETRON INJ 2 MG/ML 2 ML VIAL IV PRN (15:15)
[2025-05-07] MEDS ORDERED: ATROPINE SULFATE 0.1 MG/ML 10ML SYR IV PRN (15:15)
[2025-05-07] MEDS ORDERED: fentaNYL citrate PF 100 MCG/2 ML VIAL IV PRN (15:15)
[2025-05-07] MEDS ORDERED: PHENYLEPHRINE 100MCG/ML 5ML SYR ONE (16:13)
[2025-05-07] MEDS ORDERED: SUGAMMADEX SODIUM 200 MG/2 ML VIAL IV ONE ×2 (16:16→16:18)
[2025-05-07] MEDS ORDERED: ePHEDrine sulfate 50 MG/ML AMP ONE (16:17)
--- NOTE | 2025-05-07 16:35 | Operative Report ---
PG Post Operative Report Pre & Post Diagnosis Operation Date: 05/07/25 12:05 Pre-Op Diagnosis: flank pain; bilateral ureteral obstruction Post-Op Diagnosis: flank pain; bilateral ureteral obstruction; large clot within the bladder I identified the patient and participated in the time-out.: Yes Procedure Operation Date: 05/07/25 12:05 Actual Procedures p Cystoscopy, Clot Evacuation, Bilateral Ureteral Stent Placement(Bilateral) - Glynn King MD Surgeon Glynn King MD Branch Service Specialist None Estimated Blood Loss 0 Findings Consistent with Post-Op Diagnosis Specimens none Anesthesia Type General Complications none Disposition Disposition: Recovery Room Description of Procedure The patient was identified in the preoperative holding area, appropriate informed consents were reviewed and completed and the patient was transferred to the operative suite. Upon arrival, appropriate antibiotics and anesthesia were administered and the patient was placed in dorsal lithotomy position and prepped and draped in sterile fashion. Begin the case I passed a 21 Martiniquais cystoscope with 30 degree lens per inspection of the healthy-appearing urethra and moderately enlarged prostate. Upon entry into the bladder immediately encountered some large clots. These clots were free-floating within the bladder and not adherent to the wall or the ureters. I was able to visualize the ureters both appear to be quite edematous with some debris intraluminally. I turned my attention first to the right UO and I cannulated with a sensor wire and a 5 Martiniquais open-ended catheter. The wire advanced the kidney without difficulty and there is immediate discharge of bloody urine after advancing the wire. I then proceeded to place a 7 Martiniquais by 26 cm Coloplast double-J stent. There was good curl in the kidney as well as the bladder and there was good drainage through the stent. I then turned my attention to the left UO and cannulated the left UO with a sensor wire. Similar to the right side there was an immediate discharge of bloody urine. I then proceeded to place a 7 Martiniquais by 26 cm double-J stent on the left. There was good curl in the bladder and kidney. There was drainage through and around the stent. I then turned my attention of the clot which was in the dependent portion of the bladder/posterior wall of the bladder. I utilized a Darnell syringe and I was able to irrigate this clot out of the bladder. In total I irrigated approximately 200 cc of clot from the bladder. Urine was relatively clear at that point and there was no active bleeding that I could perceive other than the blood coming from the stents/kidneys. I decided to leave him without a Welsh catheter in the case was concluded after I emptied the bladder. He was reversed of anesthesia and taken to the recovery room in stable condition peer there were no complications. I attest to the content of the Intraoperative Record and any orders documented therein. Any exceptions are noted below.
--- NOTE | 2025-05-07 17:19 | Anesthesiology Progress Note ---
Date of Service May 07, 2025 Anesthesia Post Procedure Vital Signs Vital Signs: Temp Pulse Pulse Resp BP BP Pulse Ox 05/07/25 17:10 88 14 114/64 95 05/07/25 17:00 89 13 98/68 L 97 05/07/25 16:50 88 16 106/58 L 92 05/07/25 16:40 36.7 C 83 17 96/52 L 89 L 05/07/25 15:40 84 05/07/25 14:54 36.9 C 85 20 131/75 97 05/07/25 11:31 36.5 C 87 18 112/72 98 05/07/25 07:52 05/07/25 07:40 36.6 C 90 18 150/88 H 98 05/07/25 07:24 91 H 05/07/25 07:17 80 20 94 05/07/25 03:45 18 05/07/25 03:24 36.6 C 91 H 22 166/97 H 96 05/06/25 23:44 36.5 C 103 H 16 162/90 H 96 05/06/25 21:47 100 H 05/06/25 19:55 89 18 97 05/06/25 19:50 05/06/25 19:34 36.5 C 99 H 18 168/112 H 96 05/06/25 17:32 37.2 C 109 H 20 126/79 95 O2 Del Method O2 Flow Rate FiO2 05/07/25 17:10 Oxymask 4 05/07/25 17:00 Oxymask 13 05/07/25 16:50 Oxymask 15 05/07/25 16:40 Oxymask 15 05/07/25 15:40 05/07/25 14:54 Room Air 05/07/25 11:31 Nasal Cannula 2 05/07/25 07:52 Nasal Cannula 2 05/07/25 07:40 Nasal Cannula 2 05/07/25 07:24 05/07/25 07:17 Nasal Cannula 4 05/07/25 03:45 40 05/07/25 03:24 Room Air 05/06/25 23:44 Room Air 05/06/25 21:47 05/06/25 19:55 Nasal Cannula 4 05/06/25 19:50 Nasal Cannula 4 05/06/25 19:34 Nasal Cannula 4 05/06/25 17:32 Nasal Cannula 4 Pain Intensity Right Flank: Pain Intensity: 10 Transfer of Care Handoff Completed per policy Notes Mental Status: alert / awake / arousable Patient Amnestic to Procedure: Yes Nausea / Vomiting: adequately controlled Pain: adequately controlled Airway Patency, RR, SpO2: stable & adequate BP & HR: stable & adequate Hydration State: stable & adequate Anesthetic Complications: no major complications apparent
[2025-05-08] MEDS: PHENAZOPYRIDINE HCL 200 MG TAB PO PRN (06:11)
[2025-05-08 06:29] LABS: Hematocrit (blood only) 30.3 % (42.0-52.0); Mean Corpuscular Hemoglobin 28.7 pg (25.0-34.0); Mean Corpuscular Volume 87.1 fL (80.0-100.0); Mean Platelet Volume 9.2 fL (9.4-12.4); Platelet Count 136 K/uL (130-400); RDW Coefficient of Variation 13.8 % (11.5-14.5); RDW Standard Deviation 43.8 fL (36.4-46.3); Red Blood Count 3.48 M/uL (4.70-6.10); White Blood Count 12.04 K/ul (4.8-10.8)
[2025-05-08 06:47] LABS: Albumin Globulin Ratio 1.6 (0.9-2); BUN Creatinine Ratio 11.2 (10-20); Bilirubin,Total 0.2 mg/dl (0.2-1.0); Calcium 8.3 mg/dl (8.6-10.3); Creatinine Clr Calc Pharmacy 42.9 ml/min; Globulin 2.1 gm/dl (2.5-4.0); Magnesium 2.3 mg/dl (1.7-2.4); Potassium 4.3 mmol/L (3.5-5.1); Total Protein 5.5 gm/dl (6.0-8.3)
--- NOTE | 2025-05-08 08:06 | Urology Progress Note ---
Date of Service May 08, 2025 Assessment & Plan (1) Kidney stones: Plan Postop day #1 status post emergent stent placement yesterday secondary to bilateral ureteral obstruction Has improved urine output overnight Uncertain he is emptying his bladder completely secondary to BPH We can check PVRs and if necessary replace the catheter Creatinine improving Overall feels about as he should Admission and Anticipated Discharge Date Admission Date: May 03, 2025 Subjective Doing okay overall Has expected levels of pain from the stents Is urinating but does not feel that he empties completely Results & Data Vital Signs (Past 12 Hours) Vital Signs Temp Pulse Pulse Resp BP BP Pulse Ox 05/08/25 07:34 05/08/25 07:33 36.7 C 79 18 161/81 H 94 05/08/25 06:55 80 16 94 05/08/25 03:08 36.7 C 85 16 138/78 94 05/08/25 01:08 80 15 98 05/07/25 23:00 36.8 C 80 14 96 05/07/25 20:24 84 18 100/57 L 96 05/07/25 20:14 85 18 93 O2 Del Method O2 Flow Rate FiO2 05/08/25 07:34 Nasal Cannula 1.5 05/08/25 07:33 Nasal Cannula 2 05/08/25 06:55 Nasal Cannula 1.5 05/08/25 03:08 Room Air 2 05/08/25 01:08 40 05/07/25 23:00 Nasal Cannula 2 05/07/25 20:24 Nasal Cannula 05/07/25 20:14 Nasal Cannula PG Care Time/CCT Total # of Minutes Spent Total Time Spent with Patient: Total time spent is greater than 50% in coordination of care (as documented) at patient's floor/unit and/or counseling patient: Coding Level of Care Code 87862 SUB INP/OBS CARE 2/35MIN Diagnoses Kidney stones N20.0
--- NOTE | 2025-05-08 10:14 | Pharmacy Report ---
Pharmacy Glycemic Short Note 2 - Date of Service May 08, 2025 - Glycemic Short BSG Results (Last 24 hours): 05/07/25 05/07/25 05/07/25 11:06 11:58 16:45 Glucose 123 H POC Glucose 142 H 133 H 05/07/25 05/07/25 05/08/25 18:43 19:53 05:53 Glucose 108 H POC Glucose 142 H 132 H 05/08/25 07:31 Glucose POC Glucose 111 H OUTPATIENT ANTIDIABETIC REGIMEN: * Lantus 12 units SQ HS * Mounjaro 5mg SQ LACKEY * metformin 1000mg PO BID HbA1c: 5.8% (05/03/25) ASSESSMENT: 05/08/25: * Waldo received 5 units of bolus insulin yesterday (NPO most of the day) * Fasting BSG this AM, will continue basal scale if BSGs trend up * No changes to NovoLog at this time. 05/06/25: * Blood sugars have been well-controlled since time of admission * Received 16 units of bolus insulin only yesterday * NPO today, cystoscopy w/ stent exchange 05/04/25: * Anders is a 54 year old male admitted with flank pain, and pseudoseizures, T2DM. Pharmacy has been consulted to assist with glycemic management while inpatient. * Patient NPO, blood sugars at goal, starting T2DM diet at lunch, will start with similar regimen as last admission in March, which was euglycemic. PLAN FOR INPATIENT GLYCEMIC CONTROL: * Hold outpatient diabetes medications * Basal insulin * Lantus 5 units SQ HS if BSG is greater than 180mg/dL * Bolus insulin * NovoLog per scale ACHS or Q6hrs while NPO * Goal Range: Low 110 mg/dL - High 140 mg/dL * Correction Factor: 35 mg/dL/unit * Nutritional / Prandial insulin per carb ratio of 1 unit per 12 grams CHO consumed
[2025-05-08] MEDS: MoRPHine SULFATE 4 MG/ML 1 ML CARP\\VIAL IV STA (21:49)
[2025-05-08] MEDS: MoRPHine SULFATE 10 MG/ML CARP/VIAL IV STA (21:56)
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
[2025-05-09 03:03] LABS: Appearance Urine Cloudy (Clear); Bacteria Urine Automated None Seen (None Seen); Bilirubin Urine 1+ (Negative); Blood Urine 3+ (Negative); Cast Urine Automated 0-2 /lpf (0-2); Color Urine Dark Yellow; Epithelial Cell Urine Auto 0-2 /hpf (0-2); Glucose Urine UA Negative (Negative); Ketones Urine Negative (Negative); Leukocyte Esterase Urine 2+ (Negative); Nitrite Urine Positive (Negative); Protein Urine 2+ (Negative); RBC Urine Automated >20 /hpf (0-2); Specific Gravity Urine 1.021 (1.000-1.030); Urobilinogen Urine Negative (Negative); WBC Urine Automated >50 /hpf (0-5); pH Urine 5.5 (4.5-7.5)
[2025-05-09 08:14] LABS: BUN Creatinine Ratio 15.3 (10-20); Calcium 8.5 mg/dl (8.6-10.3); Creatinine Clr Calc Pharmacy 91.6 ml/min; Potassium 4.3 mmol/L (3.5-5.1)
[2025-05-09 09:46] LABS: Basophils # (auto) 0.04 K/uL (0.00-0.20); Basophils % (auto) 0.4 %; Eosinophils # (auto) 0.17 K/uL (0.00-0.50); Eosinophils % (auto) 1.8 %; Hematocrit (blood only) 31.2 % (42.0-52.0); Hemoglobin 10.2 g/dl (14.0-18.0); Immature Granulocytes # (auto) 0.21 K/uL (0.01-0.20); Immature Granulocytes % (auto) 2.2 %; Lymphocytes % (auto) 27.4 %; Mean Corpuscular Hemoglobin 28.7 pg (25.0-34.0); Mean Corpuscular Hgb Conc 32.7 g/dL (32.0-36.0); Mean Corpuscular Volume 87.6 fL (80.0-100.0); Mean Platelet Volume 8.6 fL (9.4-12.4); Monocytes # (auto) 0.92 K/uL (0.11-0.59); Monocytes % (auto) 9.7 %; Neutrophils # (auto) 5.56 K/uL (1.40-6.50); Neutrophils % (auto) 58.5 %; Platelet Count 128 K/uL (130-400); RDW Coefficient of Variation 13.7 % (11.5-14.5); RDW Standard Deviation 43.8 fL (36.4-46.3); Red Blood Count 3.56 M/uL (4.70-6.10)
[2025-05-09] MEDS: MoRPHine SULFATE 2 MG/ML CARP ONE (10:19)
[2025-05-09] MEDS: MoRPHine SULFATE 10 MG/ML CARP/VIAL IV STA (10:20)
[2025-05-09] MEDS: MoRPHine SULFATE 4 MG/ML 1 ML CARP\\VIAL ONE (10:20)
--- NOTE | 2025-05-09 13:42 | Urology Progress Note ---
Date of Service May 09, 2025 Assessment & Plan (1) Kidney stones: Plan Postop day #2 status post emergent stent placement secondary to bilateral ureteral obstruction Patient afebrile, hemodynamically stable Labs reviewedcreatinine improved to 1.18 today, no leukocytosis He is voiding spontaneously, PVR was 0 yesterday Continue to check BladderScan/PVR as needed He is having discomfort from bilateral stents Continue tamsulosin for stent management, can also consider addition of Pyridium and oxybutynin for stent management Continue supportive care and pain management per hospital medicine service Will arrange outpatient follow-up with our service for stent removal and ongoing management will sign off, please contact her service with any additional questions or concerns Admission and Anticipated Discharge Date Admission Date: May 03, 2025 Subjective Patient seen and examined at bedside this afternoon. He is awake and resting in bed. He reports bilateral flank discomfort. He is voiding spontaneously. Reports small frequent voids. Postvoid residual bladder scan yesterday was 0 mL. Reports occasional chills. No fevers. Review of Systems Constitutional: as per Subjective / HPI Genitourinary: + as per Subjective / HPI Physical Exam Constitutional: no acute distress Respiratory: normal respiratory effort; no respiratory distress and no labored breathing Musculoskeletal: Head/Neck/Chest: normocephalic Neurologic: moves all extremities and awake Psychiatric: Orientation: alert and oriented x 3 Results & Data Vital Signs (Past 12 Hours) Vital Signs Temp Pulse Pulse Resp BP BP Pulse Ox 05/09/25 10:38 37.1 C 84 18 145/83 H 96 05/09/25 08:00 75 05/09/25 08:00 05/09/25 07:45 36.7 C 99 H 17 143/84 H 93 05/09/25 07:25 76 16 96 05/09/25 03:35 36.4 C L 76 20 144/85 H 91 O2 Del Method O2 Flow Rate 05/09/25 10:38 Nasal Cannula 1.5 05/09/25 08:00 05/09/25 08:00 Nasal Cannula 1.5 05/09/25 07:45 Nasal Cannula 1.5 05/09/25 07:25 Nasal Cannula 1.5 05/09/25 03:35 Room Air PG Care Time/CCT Total # of Minutes Spent Total Time Spent with Patient: Total time spent is greater than 50% in coordination of care (as documented) at patient's floor/unit and/or counseling patient: Coding Level of Care Code 40706 SUB INP/OBS CARE Diagnoses Kidney stones N20.0
--- NOTE | 2025-05-09 20:48 | Hospitalist Progress Note ---
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: Plan 54 years old male with PMH of FULL CODE @ home, obesity with BMI 38.6 (height 177.8 cm; weight 121.9 kg), presumed CORINA, chronic normocytic, normochromic anemia with baseline Hb range, 12.1 g/dL to 13.7 g/dL (12/07/2022 - 03/29/2025), chronic ambulatory dysfunction (due to rappelling 40 feet from a [employer] helicopter to the ground 200 times and landing on his feet 200 times on the [place] for 10 months (), leading to chronic lumbago, s/p insertion of 2 steel rods into the spine, and physical therapy-recommended walker not utilized by patient who is too proud and ashamed to let passers-by see him utilizing a walker), GERD on famotidine 20mg PO daily and pantoprazole 40mg PO bid, lumbar stenosis w/ claudication, dysphagia, insulin-dependent DM2 with HbA1c 6.0% (01/17/2025, 2:53am) on lantus 12 units SQ qhs and metformin 1000mg PO bid, BPH on dutasteride 0.5mg PO qam, urinary incontinence on oxybutynin 5mg PO daily, chronic venous insufficiency, allergic rhinitis on fluticasone 50ug/spray, 1 spray to each nostril qhs prn allergic rhinitis, tobacco-naive chronic hypoxic respiratory failure due to (a) 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 with no mask or ventilator provided to patient and to (b) daily inhalation of 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 and 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 in the [place] for 10 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 that developed after spending 10 months on the burning [place] in [place] ( War) on prazosin 5mg PO qhs, panic attack on propanolol 120mg PO qhs, migraine headache on rimegepant ODT 75mg PO daily prn migraine headache, demyelinating disease not otherwise specified, generalized tonic-clonic seizure disorder on lacosamide 150mg PO bid, levetiracetam 1000mg PO q12, valproic acid 1000mg PO daily, and lorazepam 0.5mg PO daily prn seizure, pituitary tumor s/p resections x 2 (first resection ~19 years ago @ [facility]); second resection ~5 years ago @ 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, (c) adrenal insufficiency, treated with hydrocortisone 20mg PO qam and hydrocortisone 10mg PO q2pm, (d) acquired hypothyroidism, treated with levothyroxine 150ug PO qam, (e) hypogonadism, treated with testosterone 20.25mg/1.25g (1.62% gel) 2 pumps topically qpm, who was subsequently treated for "double pneumonia" (July 2024, [facility]), who was subsequently treated for a 1 week-belated/delayed diagnosis of compartm ent syndrome of right lower extremity, culminating in cardiac arrest x 4 episodes (August 2024, [facility]), followed by helicopter transfer out of [facility] and to [facility] for emergent fasciotomy and IV antibiotics, during which time, patient's of 34 years left patient abruptly for a younger, healthy man "because she could not accept all of my medical problems or deal with them", who presented to [facility] on 01/16/2025 for acute increase in cough and dyspnea and was admitted to the inpatient hospitalist service @ [facility] on 01/16/2025 with the following diagnosis: 1. Acute hypoxic respiratory failure due to acute influenza A infection with no obvious infiltrate/consolidation on admission 01/16/2025 portable CXR. Patient was discharged back to his home on 01/25/2025, only to be re-admitted on 01/27/2025 with SOB/SCOTT, but no acute hypoxic respiratory failure, followed by discharge back to home on 01/29/2025. Patient was subsequently admitted to [facility] on 04/06/2025 with complaints of 2 days of bilateral flank pain and gross hematuria on the morning of 04/06/2025. Patient was subsequently admitted to [facility] on 04/06/2025 with the following diagnoses: 1. Severe sepsis, but not septic shock, due to acute UTI, R/O gram negative jelani-associated bacteremia. 2. Acute urinary tract obstruction due to 10 cm renal calculus with no acute kidney failure given normal creatinine 0.71 mg/dL (04/06/2025, 1:05pm). Patient was subsequently discharged back to his home on 04/09/2025. Patient was subsequently re-admitted to the inpatient hospitalist service @ [facility] on 05/03/2025 with the following diagnoses: 1. Recurrent 7mm right upper pole renal calculus with partially visualized right ureteral stent causing worsening right-sided flank pain, but no hydrone phrosis (as reported on 05/03/2025, 2:30pm renal U/S). The following medical issues are being addressed on 05/09/2025: #Bilateral kidney stones #Right ureteric stent in place #BPH #Hematuria #QUENTIN: Suspect obstructive picture s/p IV ceftriaxone (day #1/5 on 05/04/2025, 2:07am; day #5/5 on 05/08/2025, 2:26am) Urine culture shows no growth, less than 1000 cfu/mL Continue Flomax Tylenol as needed, and oxycodone as needed for severe pain related to kidney stones Patient understands went cystoscopy with bilateral retrograde pyelogram, left ureteroscopy and stone basket extraction, right ureteroscopy with right laser lithotripsy, right stone extraction and right stent removal by Dr. Elliot Mendoza urologist on 05/06/2025: Stone analysis sent: Results pending Hold lisinopril in light of QUENTIN Stop Toradol Avoid nephrotoxic agents including NSAIDs, monitor renal function and electro lytes Patient now with new Welsh catheter post cystoscopy, maranda hematuria: Hold aspirin plus Plavix, spoke with urology and plan is for repeat cystoscopy for bilateral stent placement today #Pseudoseizures versus seizures Outpatient neurologist Dr. Ordonez Patient had multiple episodes overnight for which she has received 4 mg of IV Ativan Neurology saw the patient and initially recommended transfer to [place] but after Dr. Ordonez spoke with neurologist Dr. Sweet at [facility], plan was to keep patient here as patient has had multiple transfers to [facility] with multiple video EEGs showing no epileptiform activity and consensus is that patient has pseudoseizures and they both recommended psychiatry consult Psychiatry wrote a note on 05/06/2025 and have recommended outpatient CBT, they reviewed psychiatry medications and no other recommendations made regarding medications and they recommend continuing outpatient psychiatry follow-up Seizure precautions Continue IV lacosamide, IV Keppra, IV Depakote Lacosamide, Keppra and Depakote levels sent per neurology recommendations on 05/04/2025: Results pending #CORINA noncompliant with CPAP #COPD - Uses home oxygen 2 lpm at rest and 4 lpm with activity - Continue home inhalers and prn neb #History of CVA #Nonobstructive coronary disease # Paroxysmal atrial fibrillation status post watchman's #Chronic diastolic congestive heart failure with preserved ejection fraction #Essential hypertension Continue Crestor plus Toprol-XL 25 mg daily Hold aspirin and Plavix in light of maranda hematuria: Resume based on urology recommendations post cystoscopy Reviewed patient's records, no history of PE/DVT and unclear why patient was also getting apixaban when he has a watchman's device Apixaban has been stopped. Telemetry monitoring shows sinus rhythm Hold lisinopril in light of QUENTIN I/O monitoring Daily weights Monitor vital signs Patient will need follow-up with cardiology as outpatient #Panhypopituitarism #Hypothyroidism Outpatient publication specialist Dr. Martínez Voss Continue levothyroxine 150 mcg p.o. daily Continue desmopressin twice daily Continue home dose of hydrocortisone 20 mg every morning and 10 mg every afternoon Monitor sodium level and electrolytes #Type 2 diabetes mellitus A1c is 6.0 Pharmacy managing glycemic control #Bipolar disorder Outpatient psychiatrist is Dr. Woods Continue lithium, mirtazapine, prazosin, propranolol, Effexor, trazodone and aripiprazole Psychiatry consulted per neurology recommendations Psychiatry wrote a note on 05/06/2025 and have recommended outpatient CBT, they reviewed psychiatry medications and no other recommendations made regarding medications and they recommend continuing outpatient psychiatry follow-up #Chronic low back pain Tylenol as needed Continue duloxetine #Morbid obesity BMI is 36.7 Outpatient follow-up with PCP CODE STATUS: DNR/DNI DVT prophylaxis: Bilateral SCD Discharge planning: Based on clinical improvement, D/C back to home in the 05/10/2025 am and F/U with Urologist Dr. Glynn King within 5-7 days of hospital discharge. Care plan discussed with patient, nursing staff Admission and Anticipated Discharge Date Admission Date: May 03, 2025 Subjective "I feel a lot better today. The pain in my right back going to my left back is at a 6 today (05/09/2025); yesterday, it was an 8 (05/08/2025). I should be able to go home tomorrow (05/10/2025) because it is my first year wedding anniversary and I need to be home with my , you know?" Review of Systems Constitutional: Positive for bilateral qfgur-gm-lbvy flank pains, less intense on 05/09/2025, compared to 05/08/2025. Negative for chills on 05/09/2025. Negative for antecedent/coincident fevers, diaphoresis, cough, wheeze, sore throat, hemoptysis, chest pains, palpitations, pleurisy, nausea, vomiting, diarrhea, abdominal pain, pelvic pain, hematemesis, hematochezia, melena, hematuria, dysuria, frequency, urgency, headaches, dizziness, lightheadedness, visual changes, hearing changes, weakness, falls, syncope, trauma, travel history, sick contacts, or food/drug ingestions novel or new. All other review of systems are reported as negative by the patient on 05/09/2025. Physical Exam Constitutional: General: Comfortable, coherent, and cooperative. Wide awake and alert. Not confused, lethargic, or obtunded. Patient speaks in complete, fluent, and articulate sentences without pause, interruption, cough, or wheeze with O2 sat 95% on 1.5 liters/minute via nasal cannula (05/09/2025, 7:54pm). HEENT: Normocephalic, atraumatic. No nystagmus, gaze paresis, anisocoria, miosis, mydriasis, hyphema, scleral injection, conjunctivitis, or pterygium. No otorrhea or rhinorrhea. No pharyngeal erythema, edema, or discharge. Neck: Supple, no stridor, bruit, goiter, or hepato-jugular reflux. Jugular venous pressure is estimated to be 3 cm above the sternal angle of Roberto, which in turn, is 5 cm above the level of the right atrium; with jugular venous pressure estimated to be 8 cm, then, there is no jugular venous distention on 05/09/2025. Lymphatics: No cervical (anterior/posterior), supraclavicular, infracla vicular, axillary, epitrochlear, or inguinal adenopathy. Chest: Symmetric rise and fall with respirations. Non-tender to palpation. Lungs: Clear to auscultation and percussion. Heart: Regular rate and rhythm. S1 and S2 noted. No S3 or S4 summation gallop. No tripartite friction rub. Grade II/ early systolic murmur @ LLSB without radiation to the carotids, axilla, or back, and which remains invariant in regards to the respiratory cycle. Abdomen: Soft, non-tender, non-distended. No rebound, guarding, Moore's sign, or organomegaly. Bowel sounds auscultated in all 4 quadrants. Extremities: No clubbing, cyanosis, or edema. Skin: No decubitus ulcer, exanthem, or enanthem. Genito-urinary: No urethral discharge. s/p 05/06/2025, 1:18pm cystoscopy, bilateral ureteroscopy, laser destruction of R stone with bucket extraction, and R ureteral stent removal ([facility] Urologist Dr. Ck Mendoza); s/p 05/07/2025, 4:33pm cystoscopy, clot evacuation, and bilateral ureteral stent insertion ([facility] Urologist Dr. Glynn King). Neurology: Alert and oriented in regards to person, place, time, and situation. DTR+ and symmetric. 5/5 motor strength in all 4 extremities, both proximally and distally. No pronator drift. No facial droop. No dysarthria. Psychiatry: No homicidal ideation. No suicidal ideation. No flat affect; smiles appropriately. Results & Data Results & Data Vital Signs (Past 12 Hours) Vital Signs Temp Pulse Pulse Resp BP BP Pulse Ox 05/09/25 19:54 78 16 95 05/09/25 19:42 36.9 C 81 20 149/81 H 94 05/09/25 15:01 36.8 C 81 17 147/81 H 95 05/09/25 14:31 85 05/09/25 10:38 37.1 C 84 18 145/83 H 96 O2 Del Method O2 Flow Rate 05/09/25 19:54 Nasal Cannula 1.5 05/09/25 19:42 Nasal Cannula 05/09/25 15:01 Nasal Cannula 2 05/09/25 14:31 05/09/25 10:38 Nasal Cannula 1.5 Laboratory Results U/A (05/09/2025, 2:00am): cloudy yellow, nitrite+, LE 2+, WBC > 50, RBC > 20, epithelial cells 0-2, bacteria none seen Urine culture (05/09/2025, 2:00am): Procalcitonin (05/08/2025, 9:35pm): < 0.02 ng/mL Procalcitonin (05/09/2025, 7:41am): < 0.02 ng/mL Lactic acid (05/08/2025, 9:35pm): 1.5 mmol/L Lactic acid (05/09/2025, 9:26am): 0.8 mmol/L PG Care Time/CCT Total # of Minutes Spent Total Time Spent with Patient: Total time spent is greater than 50% in coordination of care (as documented) at patient's floor/unit and/or counseling patient: Coding Level of Care Code 89518 SUB INP/OBS CARE 3/50MIN Diagnoses Kidney stones N20.0 COPD (chronic obstructive pulmonary disease) J44.9 Presence of Watchman left atrial appendage closure device Z95.818 Pseudoseizures R56.9 Hypothyroidism E03.9 Bipolar disorder F31.9 Pituitary hypogonadism E23.0 Chronic adrenal insufficiency E27.40 CKD (chronic kidney disease), stage III N18.30 Obesity E66.9 Atrial fibrillation I48.91 Atrial fibrillation type: unspecified Panhypopituitarism E23.0 (11) Atrial fibrillation Atrial fibrillation type: unspecified Qualified Code(s): I48.91 - Unspecified atrial fibrillation
[2025-05-10 07:43] LABS: Basophils # (auto) 0.04 K/uL (0.00-0.20); Basophils % (auto) 0.4 %; Eosinophils # (auto) 0.16 K/uL (0.00-0.50); Eosinophils % (auto) 1.8 %; Hematocrit (blood only) 30.2 % (42.0-52.0); Hemoglobin 10.1 g/dl (14.0-18.0); Immature Granulocytes % (auto) 3.3 %; Lymphocytes # (auto) 2.68 K/uL (1.20-3.40); Lymphocytes % (auto) 29.6 %; Mean Corpuscular Hemoglobin 29.3 pg (25.0-34.0); Mean Corpuscular Hgb Conc 33.4 g/dL (32.0-36.0); Mean Corpuscular Volume 87.5 fL (80.0-100.0); Mean Platelet Volume 8.6 fL (9.4-12.4); Monocytes # (auto) 0.76 K/uL (0.11-0.59); Monocytes % (auto) 8.4 %; Neutrophils # (auto) 5.12 K/uL (1.40-6.50); Neutrophils % (auto) 56.5 %; Platelet Count 137 K/uL (130-400); RDW Coefficient of Variation 13.6 % (11.5-14.5); RDW Standard Deviation 43.7 fL (36.4-46.3); Red Blood Count 3.45 M/uL (4.70-6.10); White Blood Count 9.06 K/ul (4.8-10.8)
[2025-05-10 07:57] LABS: BUN Creatinine Ratio 12.9 (10-20); Calcium 8.7 mg/dl (8.6-10.3); Creatinine Clr Calc Pharmacy 107.1 ml/min; Potassium 4.3 mmol/L (3.5-5.1)
[2025-05-10 09:18] LABS: INR 0.9 (0.9-1.1)
[2025-05-10] MEDS: MoRPHine SULFATE 10 MG/ML CARP/VIAL IV STA ×2 (09:44→20:49)
--- NOTE | 2025-05-10 13:44 | Pharmacy Report ---
Pharmacy Glycemic Short Note 2 - Date of Service May 10, 2025 - Glycemic Short BSG Results (Last 24 hours): 05/09/25 05/09/25 05/10/25 16:12 20:17 07:27 Glucose 92 POC Glucose 127 H 129 H 90 05/10/25 11:31 Glucose POC Glucose 131 H OUTPATIENT ANTIDIABETIC REGIMEN: * Lantus 12 units SQ HS * Mounjaro 5mg SQ LACKEY * metformin 1000mg PO BID HbA1c: 5.8% (05/03/25) ASSESSMENT: 05/10/25: * Waldo received 10 units of bolus insulin yesterday * BSGs well controlled, fasting BSG this AM slighly below goal range, will increase goal range for NovoLog and HS basal insulin 05/08/25 * Waldo received 5 units of bolus insulin yesterday (NPO most of the day) * Fasting BSG this AM, will continue basal scale if BSGs trend up * No changes to NovoLog at this time. 05/06/25: * Blood sugars have been well-controlled since time of admission * Received 16 units of bolus insulin only yesterday * NPO today, cystoscopy w/ stent exchange 05/04/25: * Anders is a 54 year old male admitted with flank pain, and pseudoseizures, T2DM. Pharmacy has been consulted to assist with glycemic management while inpatient. * Patient NPO, blood sugars at goal, starting T2DM diet at lunch, will start with similar regimen as last admission in March, which was euglycemic. PLAN FOR INPATIENT GLYCEMIC CONTROL: * Hold outpatient diabetes medications * Basal insulin * Lantus 5 units SQ HS if BSG is greater than 180mg/dL * Bolus insulin * NovoLog per scale ACHS or Q6hrs while NPO * Goal Range: Low 110 mg/dL - High 140 mg/dL * Correction Factor: 35 mg/dL/unit * Nutritional / Prandial insulin per carb ratio of 1 unit per 12 grams CHO consumed
[2025-05-10] MEDS: HYDROmorphone INJ 1 MG/ML SYRINGE IV STA (16:31)
[2025-05-10] MEDS ORDERED: MoRPHine SULFATE 10 MG/ML CARP/VIAL IV STA (19:21)
--- NOTE | 2025-05-10 20:10 | Hospitalist Progress Note ---
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: Plan 54 years old male with PMH of FULL CODE @ home, obesity with BMI 38.6 (height 177.8 cm; weight 121.9 kg), presumed CORINA, chronic normocytic, normochromic anemia with baseline Hb range, 12.1 g/dL to 13.7 g/dL (12/07/2022 - 03/29/2025), chronic ambulatory dysfunction (due to rappelling 40 feet from a [employer] helicopter to the ground 200 times and landing on his feet 200 times on the [place] for 10 months (), leading to chronic lumbago, s/p insertion of 2 steel rods into the spine, and physical therapy-recommended walker not utilized by patient who is too proud and ashamed to let passers-by see him utilizing a walker), GERD on famotidine 20mg PO daily and pantoprazole 40mg PO bid, lumbar stenosis w/ claudication, dysphagia, insulin-dependent DM2 with HbA1c 6.0% (01/17/2025, 2:53am) on lantus 12 units SQ qhs and metformin 1000mg PO bid, BPH on dutasteride 0.5mg PO qam, urinary incontinence on oxybutynin 5mg PO daily, chronic venous insufficiency, allergic rhinitis on fluticasone 50ug/spray, 1 spray to each nostril qhs prn allergic rhinitis, tobacco-naive chronic hypoxic respiratory failure due to (a) 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 with no mask or ventilator provided to patient and to (b) daily inhalation of tar and 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 in the [place] for 10 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 that developed after spending 10 months on the burning [place] in [place] ( War) on prazosin 5mg PO qhs, panic attack on propanolol 120mg PO qhs, migraine headache on rimegepant ODT 75mg PO daily prn migraine headache, demyelinating disease not otherwise specified, generalized tonic-clonic seizure disorder on lacosamide 150mg PO bid, levetiracetam 1000mg PO q12, valproic acid 1000mg PO daily, and lorazepam 0.5mg PO daily prn seizure, pituitary tumor s/p resections x 2 (first resection ~19 years ago @ [facility]); second resection ~5 years ago @ 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, (c) adrenal insufficiency, treated with hydrocortisone 20mg PO qam and hydrocortisone 10mg PO q2pm, (d) acquired hypothyroidism, treated with levothyroxine 150ug PO qam, (e) hypogonadism, treated with testosterone 20.25mg/1.25g (1.62% gel) 2 pumps topically qpm, who was subsequently treated for "double pneumonia" (July 2024, [facility]), who was subsequently treated for a 1 week-belated/delayed diagnosis of compartm ent syndrome of right lower extremity, culminating in cardiac arrest x 4 episodes (August 2024, [facility]), followed by helicopter transfer out of [facility] and to [facility] for emergent fasciotomy and IV antibiotics, during which time, patient's of 34 years left patient abruptly for a younger, healthy man "because she could not accept all of my medical problems or deal with them", who presented to [facility] on 01/16/2025 for acute increase in cough and dyspnea and was admitted to the inpatient hospitalist service @ [facility] on 01/16/2025 with the following diagnosis: 1. Acute hypoxic respiratory failure due to acute influenza A infection with no obvious infiltrate/consolidation on admission 01/16/2025 portable CXR. Patient was discharged back to his home on 01/25/2025, only to be re-admitted on 01/27/2025 with SOB/SCOTT, but no acute hypoxic respiratory failure, followed by discharge back to home on 01/29/2025. Patient was subsequently admitted to [facility] on 04/06/2025 with complaints of 2 days of bilateral flank pain and gross hematuria on the morning of 04/06/2025. Patient was subsequently admitted to [facility] Family Medicine Residency Service on 04/06/2025 with the following diagnoses: 1. Severe sepsis, but not septic shock, due to acute UTI, R/O gram negative jelani-associated bacteremia. 2. Acute urinary tract obstruction due to 10 cm renal calculus with no acute kidney failure given normal creatinine 0.71 mg/dL (04/06/2025, 1:05pm). Patient was subsequently discharged back to his home on 04/09/2025. Patient was subsequently re-admitted to the inpatient hospitalist service @ [facility] on 05/03/2025 with the following diagnoses: 1. Recurrent 7mm right upper pole renal calculus with partially visualized right ureteral stent causing worsening right-sided flank pain, but no hydrone phrosis (as reported on 05/03/2025, 2:30pm renal U/S). The following medical issues are being addressed on 05/10/2025: #Bilateral kidney stones causing QUENTIN, NOW RESOLVED. Genito-urinary: s/p 05/06/2025, 1:18pm cystoscopy, bilateral ureteroscopy, laser destruction of R stone with bucket extraction, and R ureteral stent removal ([facility] Urologist Dr. Ck Mendoza) Genito-urinary: s/p 05/07/2025, 4:33pm cystoscopy, clot evacuation, and bilateral ureteral stent insertion ([facility] Urologist Dr. Glynn King). Genito-urinary: s/p 05/10/2025, 8:58am insertion of puentes catheter Genito-urinary: s/p 05/10/2025, 4:06pm initiation of continuous bladder irrigation given gross hematuria with blood clots clogging up puentes catheter #NOW with Gross Hematuria with blood clots clogging up puentes catheter (inserted on 05/10/2025, 8:58am), requiring initiation of CBI (05/10/2025, 4:06pm). s/p IV ceftriaxone (day #1/5 on 05/04/2025, 2:07am; day #5/5 on 05/08/2025, 2:26am) Urine culture shows no growth, less than 1000 cfu/mL Continue expulsive therapy with flomax Tylenol as needed, and oxycodone as needed for severe pain related to kidney stones Patient understands went cystoscopy with bilateral retrograde pyelogram, left ureteroscopy and stone basket extraction, right ureteroscopy with right laser lithotripsy, right stone extraction and right stent removal by Dr. Elliot Mendoza urologist on 05/06/2025: Stone analysis sent: Results pending Hold off lisinopril in light of QUENTIN with post-admission creatinine 3.06 mg/dL (05/07/2025, 6:12am), repeat creatinine 3.22 mg/dL (05/07/2025, 8:01am), repeat creatinine 3.81 mg/dL (05/07/2025, 11:58am), repeat creatinine 2.50 mg/dL (05/08/2025, 5:53am), now RESOLVED with creatinine 1.18 mg/dL (05/09/2025, 7:32am) and current creatinine 1.01 mg/dL (05/10/2025, 7:27am). Avoid nephrotoxic agents including NSAIDs (like toradol), monitor renal function and electrolytes #Pseudoseizures versus seizures Outpatient neurologist Dr. Gennaro Ordonez Patient had multiple episodes overnight for which she has received 4 mg of IV Ativan Neurology saw the patient and initially recommended transfer to [place] but after Dr. Ordonez spoke with neurologist Dr. Sweet at [facility], plan was to keep patient here as patient has had multiple transfers to [facility] with multiple video EEGs showing no epileptiform activity and consensus is that patient has pseudoseizures and they both recommended psychiatry consult Psychiatry wrote a note on 05/06/2025 and have recommended outpatient CBT, they reviewed psychiatry medications and no other recommendations made regarding medications and they recommend continuing outpatient psychiatry follow-up Seizure precautions Continue IV lacosamide, IV Keppra, IV Depakote Lacosamide, Keppra and Depakote levels sent per neurology recommendations on 05/04/2025: Results pending #CORINA noncompliant with CPAP #COPD - Uses home oxygen 2 lpm at rest and 4 lpm with activity - Continue home inhalers and prn neb #History of CVA #Nonobstructive coronary disease # Paroxysmal atrial fibrillation status post watchman's #Chronic diastolic congestive heart failure with preserved ejection fraction #Essential hypertension Continue Crestor plus Toprol-XL 25 mg daily Hold aspirin and Plavix in light of maranda hematuria: Resume based on urology recommendations post cystoscopy Reviewed patient's records, no history of PE/DVT and unclear why patient was also getting apixaban when he has a watchman's device Apixaban has been stopped. Telemetry monitoring shows sinus rhythm Hold lisinopril in light of QUENTIN I/O monitoring Daily weights Monitor vital signs Patient will need follow-up with cardiology as outpatient #Panhypopituitarism #Hypothyroidism Outpatient shut off worker Dr. Martínez Voss Continue levothyroxine 150 mcg p.o. daily Continue desmopressin twice daily Continue home dose of hydrocortisone 20 mg every morning and 10 mg every afternoon Monitor sodium level and electrolytes #Type 2 diabetes mellitus A1c is 6.0 Pharmacy managing glycemic control #Bipolar disorder Outpatient psychiatrist is Dr. Woods Continue lithium, mirtazapine, prazosin, propranolol, Effexor, trazodone and aripiprazole Psychiatry consulted per neurology recommendations Psychiatry wrote a note on 05/06/2025 and have recommended outpatient CBT, they reviewed psychiatry medications and no other recommendations made regarding medications and they recommend continuing outpatient psychiatry follow-up #Chronic low back pain Tylenol as needed Continue duloxetine #Morbid obesity BMI is 36.7 Outpatient follow-up with PCP CODE STATUS: DNR/DNI DVT prophylaxis: Bilateral SCD Discharge planning: Based on clinical improvement, D/C back to home in the 05/11/2025 am IF continuous bladder irrigation clears up gross hematuria and blood clots in puentes catheter (which was inserted on 05/10/2025, 8:58am), and F/U with Urologist Dr. Glynn King within 5-7 days of hospital discharge. Care plan discussed with patient, patient's , and nursing staff on 05/10, 7:49pm. Admission and Anticipated Discharge Date Admission Date: May 03, 2025 Subjective "I feel a lot better today. The pain in my right back going to my left back is at a 6 today (05/09/2025); yesterday, it was an 8 (05/08/2025). I should be able to go home tomorrow (05/10/2025) because it is my first year wedding anniversary and I need to be home with my , you know?" Review of Systems Constitutional: Positive for 8 out of 10 bilateral lfqmv-[id number] flank pains, more intense on 05/10/2025, compared to 05/09/2025, when patient complained of 6 out of 10 bilateral zdomn-ce-ffya flank pains. Positive for gross hematuria with blood clots on 05/10/2025, necessitating insertion of puentes catheter on 05/10/2025, and which subsequently became clogged with blood clots on 05/10/2025, and which could not become unclogged with simple normal saline instillation, and hence, patient was started on continuous bladder irrigation on 05/10/2025, 4:06pm. Negative for chills on 05/09/2025 and 05/10/2025. Negative for antecedent/coincident fevers, diaphoresis, cough, wheeze, sore throat, hemoptysis, chest pains, palpitations, pleurisy, nausea, vomiting, diarrhea, abdominal pain, pelvic pain, hematemesis, hematochezia, melena, dysuria, frequency, urgency, headaches, dizziness, lightheadedness, visual changes, hearing changes, weakness, falls, syncope, trauma, travel history, sick contacts, or food/drug ingestions novel or new. All other review of systems are reported as negative by the patient on 05/10/2025. Physical Exam Constitutional: General: Comfortable, coherent, and cooperative. Wide awake and alert. Not confused, lethargic, or obtunded. Patient speaks in complete, fluent, and articulate sentences without pause, interruption, cough, or wheeze with O2 sat 95% on 1.5 liters/minute via nasal cannula (05/09/2025, 7:54pm). O2 sat 95% on 2 liters/minute via nasal cannula (05/10/2025, 7:46pm). HEENT: Normocephalic, atraumatic. No nystagmus, gaze paresis, anisocoria, miosis, mydriasis, hyphema, scleral injection, conjunctivitis, or pterygium. No otorrhea or rhinorrhea. No pharyngeal erythema, edema, or discharge. Neck: Supple, no stridor, bruit, goiter, or hepato-jugular reflux. Jugular venous pressure is estimated to be 3 cm above the sternal angle of Roberto, which in turn, is 5 cm above the level of the right atrium; with jugular venous pressure estimated to be 8 cm, then, there is no jugular venous distention on 05/10/2025. Lymphatics: No cervical (anterior/posterior), supraclavicular, infraclavicular, axillary, epitrochlear, or inguinal adenopathy. Chest: Symmetric rise and fall with respirations. Non-tender to palpation. Lungs: Clear to auscultation and percussion. Heart: Regular rate and rhythm. S1 and S2 noted. No S3 or S4 summation gallop. No tripartite friction rub. Grade II/ early systolic murmur @ LLSB without radiation to the carotids, axilla, or back, and which remains invariant in regards to the respiratory cycle. Abdomen: Soft, non-tender, non-distended. No rebound, guarding, Moore's sign, or organomegaly. Bowel sounds auscultated in all 4 quadrants. Extremities: No clubbing, cyanosis, or edema. Skin: No decubitus ulcer, exanthem, or enanthem. Genito-urinary: No urethral discharge. Genito-urinary: s/p 05/06/2025, 1:18pm cystoscopy, bilateral ureteroscopy, laser destruction of R stone with bucket extraction, and R ureteral stent removal ([facility] Urologist Dr. Ck Mendoza) Genito-urinary: s/p 05/07/2025, 4:33pm cystoscopy, clot evacuation, and bilateral ureteral stent insertion ([facility] Urologist Dr. Glynn King). Genito-urinary: s/p 05/10/2025, 8:58am insertion of puentes catheter Genito-urinary: s/p 05/10/2025, 4:06pm initiation of continuous bladder irrigation given gross hematuria with blood clots clogging up puentes catheter Neurology: Alert and oriented in regards to person, place, time, and situation. DTR+ and symmetric. 5/5 motor strength in all 4 extremities, both proximally and distally. No pronator drift. No facial droop. No dysarthria. Psychiatry: No homicidal ideation. No suicidal ideation. No flat affect; smiles appropriately. Results & Data Results & Data Vital Signs (Past 12 Hours) Vital Signs Temp Pulse Pulse Pulse Resp BP BP 05/10/25 19:46 37.0 C 86 18 186/94 H 05/10/25 19:37 74 16 05/10/25 17:31 80 05/10/25 15:18 36.8 C 78 18 149/94 H 05/10/25 12:10 36.7 C 84 18 176/104 H 151/87 H 05/10/25 11:13 71 05/10/25 11:13 05/10/25 08:24 36.8 C 80 19 172/92 H Pulse Ox O2 Del Method O2 Flow Rate 05/10/25 19:46 95 Nasal Cannula 2 05/10/25 19:37 94 Nasal Cannula 1.5 05/10/25 17:31 05/10/25 15:18 95 Nasal Cannula 2.0 05/10/25 12:10 95 Nasal Cannula 2.0 05/10/25 11:13 05/10/25 11:13 Nasal Cannula 1.5 05/10/25 08:24 96 Nasal Cannula 2.0 Laboratory Results U/A (05/09/2025, 2:00am): cloudy yellow, nitrite+, LE 2+, WBC > 50, RBC > 20, epithelial cells 0-2, bacteria none seen Urine culture (05/09/2025, 2:00am): < 1,000 cfu/mL Procalcitonin (05/08/2025, 9:35pm): < 0.02 ng/mL Procalcitonin (05/09/2025, 7:41am): < 0.02 ng/mL Procalcitonin (05/10/2025, 7:27am): < 0.02 ng/mL Lactic acid (05/08/2025, 9:35pm): 1.5 mmol/L Lactic acid (05/09/2025, 9:26am): 0.8 mmol/L Lactic acid (05/10/2025, 7:29am): 1.0 mmol/L PG Care Time/CCT Total # of Minutes Spent Total Time Spent with Patient: Total time spent is greater than 50% in coordination of care (as documented) at patient's floor/unit and/or counseling patient: Coding Level of Care Code 52709 SUB INP/OBS CARE 3/50MIN Diagnoses Kidney stones N20.0 COPD (chronic obstructive pulmonary disease) J44.9 Presence of Watchman left atrial appendage closure device Z95.818 Pseudoseizures R56.9 Hypothyroidism E03.9 Bipolar disorder F31.9 Pituitary hypogonadism E23.0 Chronic adrenal insufficiency E27.40 CKD (chronic kidney disease), stage III N18.30 Obesity E66.9 Atrial fibrillation I48.91 Atrial fibrillation type: unspecified Panhypopituitarism E23.0 (11) Atrial fibrillation Atrial fibrillation type: unspecified Qualified Code(s): I48.91 - Unspecified atrial fibrillation
[2025-05-10] MEDS: MoRPHine SULFATE 4 MG/ML 1 ML CARP\\VIAL ONE (20:49)
[2025-05-11 09:58] LABS: Lacosamide 8.4 mcg/mL; Levetiracetam Keppra 31.6 mcg/mL (6.0-46.0); Valproic Acid, Free <4.0 mg/L (4.8-17.3); Valproic Acid, Total 29.9 mg/L (50.0-100.0)
[2025-05-11 17:32] LABS: Component 2 DNR; Source LEFT RENAL STONE; Source RIGHT URETERAL STONE
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
[2025-05-12 11:18] VITALS: RESP 20
--- NOTE | 2025-05-12 14:01 | Pharmacy Report ---
Pharmacy Glycemic Short Note 2 - Date of Service May 12, 2025 - Glycemic Short BSG Results (Last 24 hours): 05/11/25 05/11/25 05/12/25 16:27 20:38 07:19 POC Glucose 132 H 117 H 125 H 05/12/25 11:07 POC Glucose 188 H OUTPATIENT ANTIDIABETIC REGIMEN: * Lantus 12 units SQ HS * Mounjaro 5mg SQ LACKEY * metformin 1000mg PO BID HbA1c: 5.8% (05/03/25) ASSESSMENT: 05/12/25: * BSGs [id number] mg/dL yesterday with 6 units of novolog * Fasting this AM 125 mg/dL- will continue to hold basal, consider adding back if upward trend * Continue current novolog parameters 05/10/25: * Waldo received 10 units of bolus insulin yesterday * BSGs well controlled, fasting BSG this AM slighly below goal range, will increase goal range for NovoLog and HS basal insulin 05/08/25 * Waldo received 5 units of bolus insulin yesterday (NPO most of the day) * Fasting BSG this AM, will continue basal scale if BSGs trend up * No changes to NovoLog at this time. 05/06/25: * Blood sugars have been well-controlled since time of admission * Received 16 units of bolus insulin only yesterday * NPO today, cystoscopy w/ stent exchange 05/04/25: * Anders is a 54 year old male admitted with flank pain, and pseudoseizures, T2DM. Pharmacy has been consulted to assist with glycemic management while inpatient. * Patient NPO, blood sugars at goal, starting T2DM diet at lunch, will start with similar regimen as last admission in March, which was euglycemic. PLAN FOR INPATIENT GLYCEMIC CONTROL: * Hold outpatient diabetes medications * Basal insulin * Hold * Bolus insulin * NovoLog per scale ACHS or Q6hrs while NPO * Goal Range: Low 110 mg/dL - High 140 mg/dL * Correction Factor: 35 mg/dL/unit * Nutritional / Prandial insulin per carb ratio of 1 unit per 12 grams CHO consumed
[2025-05-12 16:08] VITALS: BP 169/96; PULSE 79; TEMP 97.7; O2SAT 96
--- NOTE | 2025-05-12 17:33 | Discharge Summary ---
Date of Service May 12, 2025 Admission HPI Per Admitting Provider Patient is a 54 y/o M w/ PMHx of pAfib (on Eliquis), Adrenal Insufficiency, DM- 2, HTN, HLD, PNES, lumbar stenosis w/ neurogenic claudication, recent admission for b/l nephrolithiasis w/ obstructing stone on right side and possible subsequent sepsis, stent placement in (R) side in this recent admission and plans for upcoming urologic procedure on (05/09/25; ureteral dilation, right-sided retrograde pyelogram, and aspiration) who was referred to ED by urology office after he called them to notify progressively worsening flank pain. States his pain has been present since he was discharged in late March/2025 and is noted in bilateral flanks but more bothersome in right side. also endorses having hematuria but no urinary symptoms. Has been taking prescribed Percocet q6h and no other pain medications. Does take Eliquis due to hx of a-fib and has continued to do so (last dose was this am). Patient states that a few days ago the pain was worse and he felt lightheaded/dizzy and then cannot recall anything that happened afterwards, but his daughter who was with him states that he fell down and was seizing, and when he woke up he had urinated himself. He does not remember the episode itself and recalls what happened from when he stood up after the episode. No recurrence since then, and has been taking anticonvulsants as prescribed. ED Course: Given Morphine 4mg x1, Toradol 15 mg IV x1, NSS 1L bolus; ED physician discussed with avionics safety inspector Urologist who stated that they would evaluate patient tomorrow morning Labs/Imaging: CBC w/o leukocytosis, hgb of 13, plt of 225. CMP w/o significant electrolyte abnormalities, Creatinine of 0.81, and bsg of 144. hgb A1c was 5.8%. Lactate was 2.4 which improved to 1.5 after fluid bolus. Calcium was 10.1. U/A with noted blood and leuk esterase but no bacteria. Urine culture pending). Renal US showing 7mm on right upper renal pole that is non obstructing, and no hydronephrosis noted. Medical History: [Reviewed] Medications: [Reviewed] Surgical History: [Reviewed] Family history: [Reviewed] Allergies: [Reviewed] Social History: [Reviewed] Code Status: DNR/DNI Admission Exam (Per Admitting) Constitutional General: Comfortable, coherent, and cooperative. Wide awake and alert. Not confused, lethargic, or obtunded. Patient speaks in complete, fluent, and articulate sentences without pause, interruption, cough, or wheeze with O2 sat 95% on 1.5 liters/minute via nasal cannula (05/09/2025, 7:54pm). O2 sat 95% on 2 liters/minute via nasal cannula (05/10/2025, 7:46pm). HEENT: Normocephalic, atraumatic. No nystagmus, gaze paresis, anisocoria, miosis, mydriasis, hyphema, scleral injection, conjunctivitis, or pterygium. No otorrhea or rhinorrhea. No pharyngeal erythema, edema, or discharge. Neck: Supple, no stridor, bruit, goiter, or hepato-jugular reflux. Jugular venous pressure is estimated to be 3 cm above the sternal angle of Roberto, which in turn, is 5 cm above the level of the right atrium; with jugular venous pressure estimated to be 8 cm, then, there is no jugular venous distention on 05/10/2025. Lymphatics: No cervical (anterior/posterior), supraclavicular, infraclavicular, axillary, epitrochlear, or inguinal adenopathy. Chest: Symmetric rise and fall with respirations. Non-tender to palpation. Lungs: Clear to auscultation and percussion. Heart: Regular rate and rhythm. S1 and S2 noted. No S3 or S4 summation gallop. No tripartite friction rub. Grade II/ early systolic murmur @ LLSB without radiation to the carotids, axilla, or back, and which remains invariant in regards to the respiratory cycle. Abdomen: Soft, non-tender, non-distended. No rebound, guarding, Moore's sign, or organomegaly. Bowel sounds auscultated in all 4 quadrants. Extremities: No clubbing, cyanosis, or edema. Skin: No decubitus ulcer, exanthem, patient insisted that he wants the to go home without the catheter catheter was removed post removal patient was able to pee 75 mL with some blood clot discussed and educated patient that he should be drinking enough water and follow-up outpatient with urology Discharge Data Consultations 05/03/25 21:40 ED Decision to Admit Stat 05/04/25 01:16 Consult Urology Routine 05/04/25 09:59 Consult Neurology Routine Procedures Performed Operation Date: 05/07/25 12:05 Actual Procedures p Cystoscopy, Clot Evacuation, Bilateral Ureteral Stent Placement(Bilateral) - Glynn King MD Hospital Course (1) Kidney stones: (2) COPD (chronic obstructive pulmonary disease): (3) Presence of Watchman left atrial appendage closure device: (4) Pseudoseizures: (5) Hypothyroidism: (6) Bipolar disorder: (7) Pituitary hypogonadism: (8) Chronic adrenal insufficiency: (9) CKD (chronic kidney disease), stage III: (10) Obesity: (11) Atrial fibrillation: (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 helicopter to the ground 200 times and landing on his feet 200 times on the [place] for 10 months ( War), leading to chronic lumbago, s/p insertion of 2 steel rods into the spine, and physical therapy-recommended walker not utilized by patient who is too proud and ashamed to let passers-by see him utilizing a walker), GERD on famotidine 20mg PO daily and pantoprazole 40mg PO bid, lumbar stenosis w/ claudication, dysphagia, insulin-dependent DM2 with HbA1c 6.0% (01/17/2025, 2:53am) on lantus 12 units SQ qhs and metformin 1000mg PO bid, BPH on dutasteride 0.5mg PO qam, urinary incontinence on oxybutynin 5mg PO daily, chronic venous insufficiency, allergic rhinitis on fluticasone 50ug/spray, 1 spray to each nostril qhs prn allergic rhinitis, tobacco-naive chronic hypoxic respiratory failure due to (a) 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 with no mask or ventilator provided to patient, now diagnosed with COPD and committed to 4 liters/minute O2 via nasal cannula [id number] at home, arformoterol 15ug/2mL neb PO bid, budesonide 0.5mg neb daily, and duonebs q6 prn SOB/wheeze, CAD on rosuvastatin 2 0mg PO qam, HTN on bumex 1mg PO qam, lisinopril 40mg PO daily, metoprolol succinate XL 25mg PO qhs, paroxsymal AFIB on metoprolol succinate XL 25mg PO qhs, s/p left atrial appendage occlusion (e.g., Watchman Procedure, 02/15/2024, [facility] Interventional CARDS Dr. Grabiel Carpenter, to provide a non-pharmacologic solution for ischemic stroke prevention instead of pharm acologic strategies utilizing apixaban or xarelto given patient's multiple falls in the setting of generalized tonic-clonic seizure disorder), but still on apixaban 5mg PO bid for unclear reasons, bipolar disorder on aripiprazole 5mg PO daily, duloxetine 60mg PO daily, duloxetine 30mg PO qpm, lithium 300mg PO bid, valproic acid 1000mg PO daily, insomnia disorder on mirtazapine 45mg PO qhs and trazodone 100mg PO qhs, parasominia disorder/nightmare disorder (due to PTSD that developed after spending 10 months on the burning oil [place] in [place] ( War) on prazosin 5mg PO qhs, panic attack on propanolol 120mg PO qhs, migraine headache on rimegepant ODT 75mg PO daily prn migraine headache, demyelinating disease not otherwise specified, generalized tonic-clonic seizure disorder on lacosamide 150mg PO bid, levetiracetam 1000mg PO q12, valproic acid 1000mg PO daily, and lorazepam 0.5mg PO daily prn seizure, pituitary tumor s/p resections x 2 (first resection ~19 years ago @ [facility] ([facility]); second resection ~5 years ago @ 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, (c) adrenal insufficiency, treated with hydrocortisone 20mg PO qam and hydrocortisone 10mg PO q2pm, (d) acquired hypothyroidism, treated with levothyroxine 150ug PO qam, (e) hypogonadism, treated with testosterone 20.25mg/1.25g (1.62% gel) 2 pumps topically qpm, who was subsequently treated for "double pneumonia" (July 2024, [facility]), who was subsequently treated for a 1 week-belated/delayed diagnosis of compartment syndrome of right lower extremity, culminating in cardiac arrest x 4 episodes (August 2024, [facility]), followed by helicopter transfer out of [facility] and to [facility] for emergent fasciotomy and IV antibiotics, during which time, patient's of 34 years left patient abruptly for a younger, healthy man "because she could not accept all of my medical problems or deal with them", who presented to [facility] on 01/16/2025 for acute increase in cough and dyspnea and was admitted to the inpatient hospitalist service @ [facility] on 01/16/2025 with the following diagnosis: 1. Acute hypoxic respiratory failure due to acute influenza A infection with no obvious infiltrate/consolidation on admission 01/16/2025 portable CXR. Patient was discharged back to his home on 01/25/2025, only to be re-admitted on 01/27/2025 with SOB/SCOTT, but no acute hypoxic respiratory failure, followed by discharge back to home on 01/29/2025. Patient was subsequently admitted to [facility] on 04/06/2025 with complaints of 2 days of bilateral flank pain and gross hematuria on the morning of 04/06/2025. Patient was subsequently admitted to [facility] on 04/06/2025 with the following diagnoses: 1. Severe sepsis, but not septic shock, due to acute UTI, R/O gram negative jelani-associated bacteremia. 2. Acute urinary tract obstruction due to 10 cm renal calculus with no acute kidney failure given normal creatinine 0.71 mg/dL (04/06/2025, 1:05pm). Patient was subsequently discharged back to his home on 04/09/2025. Patient was subsequently re-admitted to the inpatient hospitalist service @ [facility] on 05/03/2025 with the following diagnoses: 1. Recurrent 7mm right upper pole renal calculus with partially visualized right ureteral stent causing worsening right-sided flank pain, but no hydronephrosis (as reported on 05/03/2025, 2:30pm renal U/S). The following medical issues are being addressed on 05/10/2025: #Bilateral kidney stones causing QUENTIN, NOW RESOLVED. Genito-urinary: s/p 05/06/2025, 1:18pm cystoscopy, bilateral ureteroscopy, laser destruction of R stone with bucket extraction, and R ureteral stent removal ([facility] Urologist Dr. Ck Mendoza) Genito-urinary: s/p 05/07/2025, 4:33pm cystoscopy, clot evacuation, and bilateral ureteral stent insertion ([facility] Urologist Dr. Glynn King). Genito-urinary: s/p 05/10/2025, 8:58am insertion of puentes catheter Genito-urinary: s/p 05/10/2025, 4:06pm initiation of continuous bladder irrigation given gross hematuria with blood clots clogging up puentes catheter #NOW with Gross Hematuria with blood clots clogging up puentes catheter (inserted on 05/10/2025, 8:58am), requiring initiation of CBI (05/10/2025, 4:06pm). s/p IV ceftriaxone (day #1/5 on 05/04/2025, 2:07am; day #5/5 on 05/08/2025, 2:26am) Urine culture shows no growth, less than 1000 cfu/mL Continue expulsive therapy with flomax Tylenol as needed, and oxycodone as needed for severe pain related to kidney stones Patient understands went cystoscopy with bilateral retrograde pyelogram, left ureteroscopy and stone basket extraction, right ureteroscopy with right laser lithotripsy, right stone extraction and right stent removal by Dr. Elliot Mendoza urologist on 05/06/2025: Stone analysis sent: Results pending Hold off lisinopril in light of QUENTIN with post-admission creatinine 3.06 mg/dL (05/07/2025, 6:12am), repeat creatinine 3.22 mg/dL (05/07/2025, 8:01am), repeat creatinine 3.81 mg/dL (05/07/2025, 11:58am), repeat creatinine 2.50 mg/dL (05/08/2025, 5:53am), now RESOLVED with creatinine 1.18 mg/dL (05/09/2025, 7:32am) and current creatinine 1.01 mg/dL (05/10/2025, 7:27am). Avoid nephrotoxic agents including NSAIDs (like toradol), monitor renal function and electrolytes #Pseudoseizures versus seizures Outpatient neurologist Dr. Gennaro Ordonez Patient had multiple episodes overnight for which she has received 4 mg of IV Ativan Neurology saw the patient and initially recommended transfer to [place] but after Dr. Ordonez spoke with neurologist Dr. Sweet at [facility], plan was to keep patient here as patient has had multiple transfers to [facility] with multiple video EEGs showing no epileptiform activity and consensus is that patient has pseudoseizures and they both recommended psychiatry consult Psychiatry wrote a note on 05/06/2025 and have recommended outpatient CBT, they reviewed psychiatry medications and no other recommendations made regarding medications and they recommend continuing outpatient psychiatry follow-up Seizure precautions Continue IV lacosamide, IV Keppra, IV Depakote Lacosamide, Keppra and Depakote levels sent per neurology recommendations on 05/04/2025: Results pending #CORINA noncompliant with CPAP #COPD - Uses home oxygen 2 lpm at rest and 4 lpm with activity - Continue home inhalers and prn neb #History of CVA #Nonobstructive coronary disease # Paroxysmal atrial fibrillation status post watchman's #Chronic diastolic congestive heart failure with preserved ejection fraction #Essential hypertension Continue Crestor plus Toprol-XL 25 mg daily Hold aspirin and Plavix in light of maranda hematuria: Resume based on urology recommendations post cystoscopy Reviewed patient's records, no history of PE/DVT and unclear why patient was also getting apixaban when he has a watchman's device Apixaban has been stopped. Telemetry monitoring shows sinus rhythm Hold lisinopril in light of QUENTIN I/O monitoring Daily weights Monitor vital signs Patient will need follow-up with cardiology as outpatient #Panhypopituitarism #Hypothyroidism Outpatient pressure washer Dr. Martínez Voss Continue levothyroxine 150 mcg p.o. daily Continue desmopressin twice daily Continue home dose of hydrocortisone 20 mg every morning and 10 mg every afternoon Monitor sodium level and electrolytes #Type 2 diabetes mellitus A1c is 6.0 Pharmacy managing glycemic control #Bipolar disorder Outpatient psychiatrist is Dr. Woods Continue lithium, mirtazapine, prazosin, propranolol, Effexor, trazodone and aripiprazole Psychiatry consulted per neurology recommendations Psychiatry wrote a note on 05/06/2025 and have recommended outpatient CBT, they reviewed psychiatry medications and no other recommendations made regarding medications and they recommend continuing outpatient psychiatry follow-up #Chronic low back pain Tylenol as needed Continue duloxetine #Morbid obesity BMI is 36.7 Outpatient follow-up with PCP CODE STATUS: DNR/DNI DVT prophylaxis: Bilateral SCD Discharge planning: Based on clinical improvement, D/C back to home in the 05/11/2025 am IF continuous bladder irrigation clears up gross hematuria and blood clots in puentes catheter (which was inserted on 05/10/2025, 8:58am), and F/U with Urologist Dr. Glynn King within 5-7 days of hospital discharge. Care plan discussed with patient, patient's , and nursing staff on 05/10/2025, 7:49pm. Discharge Instructions Follow /U with Urologist Dr. Glynn King within 5-7 days of hospital discharge. Coding Level of Care Code 66611 INP/OBS DISCH >30 MIN Diagnoses Kidney stones N20.0 COPD (chronic obstructive pulmonary disease) J44.9 Presence of Watchman left atrial appendage closure device Z95.818 Pseudoseizures R56.9 Hypothyroidism E03.9 Bipolar disorder F31.9 Pituitary hypogonadism E23.0 Chronic adrenal insufficiency E27.40 CKD (chronic kidney disease), stage III N18.30 Obesity E66.9 Atrial fibrillation I48.91 Atrial fibrillation type: unspecified Panhypopituitarism E23.0
--- NOTE | 2025-05-22 06:20 | Billing Data ---
Date of Service May 03, 2025 Coding Level of Care Code 49380 INT INP/OBS CARE
== END 2025-05-12 18:03 | disposition home or self-care (01) | DRG 660 ==
LOC: ED 19:37 → SUATTDRO 23:08 → 2S 23:08

== ENCOUNTER 2025-05-13 13:15 | Inpatient (IN) ==
--- NOTE | 2025-05-13 13:32 | Emergency Department Note ---
Impression & Plan Acute UTI, Abdominal pain, Seizure, Anemia ED Provider Note NAME: LINSEY VIRAMONTES Jr AGE: 54 SEX: M : 1970 ARRIVES VIA: Ambulance INFORMANT: Patient ED PROVIDER(S): James Estrada DO CHIEF COMPLAINT: seizure and post op pain HPI: Patient is a 54-year-old male who presents to the ER for abdominal pain and had a witnessed seizure via EMS. Patient has a PMHx of pAfib (on Eliquis), Adrenal Insufficiency, DM-2, HTN, HLD, PNES, lumbar stenosis w/ neurogenic claudication, recent admission for b/l nephrolithiasis w/ obstructing stone on right side and possible subsequent sepsis, stent placement in (R) side in this recent admission. Patient presents to the ER today for worsening pain. Was brought in by EMS and had a witnessed seizure which initially started in 1 arm and traveled to both and then was tonic-clonic. Patient received 5 mg of IV Versed. Additional history is otherwise unobtainable from patient. ADDITIONAL HISTORY OBTAINED: History obtained from EMS as described above Chronic Medical/Social Conditions Affecting Care: Per HPI PAST MEDICAL HISTORY:See Below PAST SURGICAL HISTORY:See Below FAMILY HISTORY:See Below SOCIAL HISTORY:See Below HOME MEDICATIONS:See Below ALLERGIES:See Below VITALS:See Below PHYSICAL EXAMINATION: GENERAL: Lying in bed and opens eyes to painful stimuli and withdrawals EYE EXAM: normal conjunctiva. PERRL and EOM's grossly intact. OROPHARYNX: no exudate, no erythema, lips, buccal mucosa, and tongue normal and mucous membranes are moist NECK: supple, no nuchal rigidity, no adenopathy, non-tender LUNGS: Clear to auscultation. Normal chest wall mechanics HEART: no murmurs, S1 normal and S2 normal ABDOMEN: abdomen soft, non-tender, normo-active bowel sounds, no masses, no rebound or guarding. BACK: Back is symmetrical on inspection and there is no deformity, no midline tenderness, no CVA tenderness. SKIN: no rashes and no bruising UPPER EXTREMITIES: upper extremities are grossly normal. LOWER EXTREMITIES: No pitting edema. NEURO EXAM: Normal sensorium, cranial nerves II-XII intact, withdraws lower and upper extremities to painful stimuli MEDICAL DECISION MAKING: Patient is a 54-year-old male who was just discharged following over a week stay at [facility] yesterday. He returns for worsening pain. And route he was found to have a seizure and was given 5 of Versed. IVs were established and blood work was obtained. Labs show no significant leukocytosis. Mild anemia at 9.7. BMP along with LFTs bilirubin and troponin was negative. Lipase is normal. UA with leuks whites and a small amount epithelial cells. Do favor this likely infectious. Patient was given IV Rocephin. CT abdomen pelvis was unremarkable. CT head was negative. Patient's mentation improved significantly throughout his stay but he does not remember why he came in I do believe that this is likely secondary to the Versed. He notes he is having pain in the lower abdomen. He was given morphine. Discussed the case with the hospitalist for further evaluation management and treatment as he was just discharged. Consults/Care Managements Discussions: Per [facility] Triage Nursing notes reviewed. Limited review of prior medical records performed Vital Signs: reviewed and remarkable for HTN Differential diagnosis: Differential diagnosis includes etiologies such as infection, hypoglycemia, electrolyte abnormalities, cardiac sources, intracerebral event, trauma, toxicologic, neurologic, as well as others were entertained. ER treatment provided: See below Diagnostics interpreted by me include EKG and cardiac monitoring as listed below: -Cardiac Monitoring: An order was placed for continuous cardiac monitoring. The monitor shows a rate of 92 with sinus rhythm. -ECG: Sinus rhythm rate of 99 Normal axis No PVCs QTc 472 -Laboratory studies:Interpreted by me as stated above in MDM and shown below. Imaging studies: Xrays: As interpreted by me: KUB was unremarkable CTs show: CT head and abdomen pelvis as described above Procedures:none Critical Care: None Past Med/Surg History Problem List (Updated 05/13/25 @ 18:21 by James Estrada DO) Seizure (Acute) Abdominal pain (Acute) Acute UTI (Acute) Bipolar 1 disorder Diabetes Psychogenic nonepileptic seizure Kidney stones currently causing severe pain Asthma COPD (chronic obstructive pulmonary disease) Intractable back pain (Acute) Encounter for preoperative assessment (Acute) Numbness of right foot Advanced care planning/counseling discussion Palliative care by specialist Back pain at L4-L5 level Bilateral nephrolithiasis (Chronic) Acute flank pain Elevated lactic acid level Compartment syndrome of lower extremity Ambulatory dysfunction (Acute) Arthralgia Venous stasis ulcers (Acute) Chronic venous insufficiency (Chronic) Presbyopia of both eyes Epiretinal membrane (ERM) of left eye Ocular hypertension Secondary cataract of left eye with vision obscured Combined form of senile cataract of right eye Abnormal chest CT Demyelinating disease Esophageal dysphagia 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 Current use of proton pump inhibitor Chronic migraine without aura or status migrainosus Anemia (Acute) Ulcerative colitis Mixed hyperlipidemia Lumbar stenosis with neurogenic claudication Arachnoid cyst of posterior cranial fossa Pseudoseizures Idiopathic polyneuropathy Essential tremor Mitral regurgitation Depression Anxiety (Chronic) Medical History (Updated 05/13/25 @ 18:21 by James Estrada DO) History of pneumonia (03/2025) states has been admitted for total of 36 days ytd at [facility] for pneumonia, last was approxl 1 month ago Ocular hypertension Ulcerative colitis Mixed hyperlipidemia Lumbar stenosis with neurogenic claudication Idiopathic polyneuropathy Essential tremor Demyelinating disease Compartment syndrome of lower extremity (02/2025) per hx Chronic venous insufficiency Back pain at L4-L5 level Arthralgia Depression with anxiety Hx of fall (11/2024) History of dysphagia Hematuria On home O2 4 L nc History of recent hospitalization states has been in hospital 36 days this year so far with pneumonia- last was approx 1 month ago Sepsis Pyelonephritis Urinary tract obstruction due to kidney stone Lactic acidosis LPRD (laryngopharyngeal reflux disease) Severe obesity (BMI 35.0-35.9 with comorbidity) Uncontrolled type 2 diabetes mellitus with hyperglycemia Suspect low glycation index meaning his A1c is typically about 2 points lower than what his average glucose would suggest. Hypothyroidism Hypertension Non-occlusive coronary artery disease Acute dehydration hx Witnessed seizure-like activity Nonepileptic episode Chronic narcotic dependence COPD with exacerbation (03/2025) follows with dr. mccarthy (last seen while in hospital at [facility] with pneumonia ~) Anti-cyclic citrullinated peptide antibody positive Restrictive lung disease follows with dr. mccarthy, on O2 4L nc at all times Abnormal PFTs (pulmonary function tests) Bipolar disorder (10/11/22) Obstructive sleep apnea cpap 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 Follows with endocrinology- Secondary adrenal insufficiency Transient alteration of awareness Chronic adrenal insufficiency Leukocytosis Acute asthma exacerbation hx Acute on chronic hypoxic respiratory failure O2 4L nc Migraine Hematoma Growth hormone deficiency Diaphoresis hx Acute hypoxic respiratory failure hx Influenza A (12/2024) hx- Status epilepticus (09/13/24) Knee hemarthrosis, right (09/13/24) Acute on chronic anemia (09/13/24) Acute metabolic encephalopathy (09/13/24) hx Laceration of toe of right foot Closed fracture of right fibula with malunion Right fibular fracture hx Acute on chronic respiratory failure with hypoxia and hypercapnia Shortness of breath only if not wearing oxygen Chronic respiratory failure with hypoxia Obesity CKD (chronic kidney disease), stage III Peripheral edema Atrial fibrillation (02/15/24) no cardioversion- has loop recorder and watchmans device, follows with dr. kilgore (03/2025 while inpt.) Chronic low back pain Panhypopituitarism Lumbosacral radiculopathy Toxic encephalopathy Chest pain hx Acute dyspnea hx Acute CHF hx Hypoglycemia hx Syncope and collapse Reason for loop recorder No recent issues since bed bound from femur fracture in Sep 2022 per patient Internal hemorrhoids Recurrent seizures (05/01/25) goes sometimes months without seizures, then may may have 2 in one day- last seizure- 05/01/25- grand mal, lost control of bowel and bladder- informed neuro, dr. villa- told to stay on meds (last saw dr. villa on tu04/30/25) Pituitary diabetes insipidus Spondylolysis, lumbar region Right lumbar radiculopathy HTN (hypertension) Adrenal insufficiency Pituitary adenoma Hyperactive gag reflex BRCA gene positive tested positive in Aug 2023 [place] Family history of BRCA gene mutation PTSD (post-traumatic stress disorder) Epidural lipomatosis Chronic left sacroiliac pain Benzodiazepine overdose hx Presence of cardiac device Loop recorder > placed at [facility]- last checked fall 2023 Hx of fracture of foot Sep 2022- right > cast since removed > still gets painful Fracture of fibula, right, closed Cerebral concussion May 2023 during seizure > no further issues Orthostatic hypotension Sensorineural hearing loss of both ears Rectal bleeding on occasion History of COVID-19 10/2021 - fatigue; resolved. Mitral valve regurgitation follows with Dr. kilgore Vertigo Lower extremity edema Elevated LFTs Bilateral hand pain Pituitary neoplasm Dx'ed in 2001- s/p surgical resection and XRT Repeat surgery in 2018 secondary to tumor regrowth at [facility] Prostate mass benign Bladder mass benign Surgical History Presence of Watchman left atrial appendage closure device (02/2024) eric History of arthroplasty of left knee (2014) S/P TURP (status post transurethral resection of prostate) History of lumbar fusion (07/2022) [facility] Jul 2022 History of cardiac cath (07/2021) 07/2021 - no stents- no [facility]- follows with dr. kilgore S/P epidural steroid injection History of lithotripsy Status post right foot surgery replaced 5th metatarsal--hardware in place History of bladder surgery remove mass History of prostate surgery (2016) remove mass- not malignant History of colonoscopy History of esophagogastroduodenoscopy (EGD) History of tooth extraction History of wisdom tooth extraction History of brain surgery x2---2004 @ [facility], 2018 @ [facility]--for brain tumors > caused epilepsy Family History Grandmother (Paternal) Family history of diabetes mellitus Aunt Family history of diabetes mellitus Uncle Family history of diabetes mellitus Father Prostate cancer Heart disease Osteoarthritis Mother Cardiac disorder Grandmother (Maternal) Myocardial infarction Other Asthma Cancer Hypertension No family history of adverse response to anesthesia No family history of bleeding disorder Stroke Denies family history of Ovarian cancer Breast cancer Colorectal cancer Social History Smoking Status: Unknown if ever smoked Second Hand Exposure: No; Do You Dip or Chew Tobacco: No; Hx Alcohol Use: No Hx Substance Use: No Preferred Language: Tamazight Communication Ability: Effective Communication Ability Comment: Unable to obtain due to patient condition. Visual Impairment: Limited Hearing Ability: Normal Ribbing Machine Operator Required: No Beliefs That Will Affect Care: Adventism marital status: Single Current Living Situation: Spouse Current Living Situation Comment: and daughter in [place] current occupational status: disabled How many Children do You have: 3 How many Children do You have Comment: able to assist with care if needed Feels Safe at Home: Yes Childhood Exposure to Second-Hand Smoke: Yes (parents smoked) Diet: regular Diet Comment: going to be starting low carb/low calorie diet. caffeine: No (1/2 20 oz bottle of mountain dew. ) during the past year weight has: increased > 10 lbs Physical Activity Frequency: Daily Physical Activity Frequency Comment: walking, 1.5 miles daily. Seatbelt Use: always Do you think of yourself as: straight/heterosexual Gender Identity: Male Assistive Devices: Cane and Oxygen - Continuous Allergies Allergies Allergy/AdvReac Type Severity Reaction Status Date / Time clindamycin Allergy Intermediate SWELLING Verified 05/06/25 11:57 Iodinated Contrast Media Allergy Intermediate face/eye Verified 05/06/25 11:57 swelling Quinolones Allergy Intermediate HIVES Verified 05/06/25 11:57 tomato AdvReac Unknown Unknown Verified 05/06/25 11:57 Home Meds Home Medications Medication Instructions Recorded Confirmed lithium carbonate 300 mg tablet 300 mg PO AMHS 06/04/22 05/13/25 mirtazapine 30 mg tablet (Remeron) 30 mg PO HS 06/23/22 05/13/25 dutasteride 0.5 mg capsule 0.5 mg PO QAM 04/06/24 05/13/25 glucagon 3 mg/actuation nasal 3 mg intranasal ONCE PRN Severe 04/06/24 05/13/25 spray (Baqsimi) Hypoglycemia aripiprazole 5 mg tablet 5 mg PO QAM 05/29/24 05/13/25 insulin glargine 100 unit/mL (3 12 unit subcut HS 07/19/24 05/13/25 mL) subcutaneous pen (Lantus Solostar U-100 Insulin) trazodone 100 mg tablet 100 mg PO HS 10/03/24 05/13/25 lorazepam 0.5 mg tablet 0.5 mg PO DAILY PRN Seizure 11/23/24 05/13/25 Activity ferrous sulfate 325 mg (65 mg 325 mg PO Q OTHER DAY 11/27/24 05/13/25 iron) tablet clopidogrel 75 mg tablet (Plavix) 75 mg PO QPM 12/03/24 05/13/25 arformoterol 15 mcg/2 mL solution 2 ml inhalation BID 01/16/25 05/13/25 for nebulization (Brovana) oxybutynin chloride 5 mg 5 mg PO QAM 01/16/25 05/13/25 tablet,extended release 24 hr Oxygen Home 01/30/25 05/02/25 magnesium oxide 400 mg (241.3 mg 400 mg PO DAILY 03/01/25 05/13/25 magnesium) tablet potassium chloride 10 mEq 10 meq PO QPM 03/01/25 05/13/25 tablet,extended release nystatin 100,000 unit/gram topical 1 applic topical BID PRN Other 03/19/25 05/13/25 cream quetiapine 50 mg tablet,extended 50 mg PO QAM 03/19/25 05/13/25 release 24 hr venlafaxine 150 mg 150 mg PO QAM 03/19/25 05/13/25 capsule,extended release 24 hr propranolol 120 mg capsule,24 120 mg PO HS 03/26/25 05/13/25 hr,extended release prazosin 5 mg capsule 5 mg PO HS 04/05/25 05/13/25 ramelteon 8 mg tablet 8 mg PO HS 04/05/25 05/13/25 venlafaxine 75 mg capsule,extended 75 mg PO QAM 04/05/25 05/13/25 release 24 hr aspirin 81 mg capsule 81 mg PO QPM 05/03/25 05/13/25 budesonide 0.5 mg/2 mL suspension 0.5 mg inhalation QPM 05/03/25 05/13/25 for nebulization divalproex 500 mg tablet,delayed 1,000 mg PO QAM 05/03/25 05/13/25 release duloxetine 60 mg capsule,delayed 60 mg PO QAM 05/03/25 05/13/25 release famotidine 20 mg tablet (Acid 20 mg PO QAM 05/03/25 05/13/25 Truck Cleaner (famotidine)) hydrocortisone 10 mg tablet 10 - 20 mg PO UD 05/03/25 05/13/25 lisinopril 40 mg tablet 40 mg PO QAM 05/03/25 05/13/25 oxycodone-acetaminophen 5 mg-325 1.5 tab PO Q6H PRN pain (scale 05/03/25 05/13/25 mg tablet (Percocet) score 7-10) tirzepatide 5 mg/0.5 mL 5 mg subcut WK 05/03/25 05/13/25 subcutaneous pen injector Previous Rx's Medication Instructions Recorded fluticasone propionate 50 1 spray intranasal HS PRN allergy 03/16/23 mcg/actuation nasal symptoms #16 grams spray,suspension (Flonase Allergy Relief) FreeStyle Rosalie 2 [place] (flash #1 ea 05/13/23 glucose scanning reader) blood sugar diagnostic (Arisdyne Systemsuch #150 ea 11/22/23 Verio test strips) blood-glucose meter (MadeiraMadeiraTouch #1 ea 11/22/23 Verio Reflect Meter) insulin syringe-needle U-100 1 mL #300 ea 11/22/23 30 gauge x 1/2" (BD Insulin Syringe Ultra-Fine) lancets 33 gauge (OneTouch Delica #150 ea 11/22/23 Plus Lancet) albuterol sulfate 90 mcg/actuation 2 inh inhalation Q6H PRN shortness 02/24/24 aerosol inhaler (Ventolin HFA) of breath or wheezing #6.7 grams ipratropium 0.5 mg-albuterol 3 mg 3 ml inhalation QID PRN wheezing 07/31/24 (2.5 mg base)/3 mL nebulization #90 mL soln nebulizers (Compact Compressor #1 ea 07/31/24 Nebulizer) Botox 200 unit injection See Rx Instructions IM .COMPLEX #1 09/18/24 (onabotulinumtoxinA) ea rosuvastatin 20 mg tablet 20 mg PO QAM #90 tabs 09/19/24 pantoprazole 40 mg tablet,delayed 40 mg PO BID #60 tabs 09/21/24 release pen needle, diabetic 32 gauge x #100 ea 10/23/24 5/32" (BD Vy 2nd Gen Pen Needle) bumetanide 1 mg tablet 1 mg PO QAM #30 tabs 10/26/24 vitamin B complex (Vitamins B 1 cap PO QAM #30 caps 10/26/24 Complex capsule) levetiracetam 1,000 mg tablet 1,000 mg PO Q12H #60 tabs 11/26/24 desmopressin 0.2 mg tablet 0.4 mg (2 x 0.2 mg) PO BID #120 11/30/24 tabs metoprolol succinate 25 mg 25 mg PO HS #90 tabs 11/30/24 tablet,extended release 24 hr somatropin 5 mg/1.5 mL (3.3 mg/mL) 0.3 mg (0.09 mL) subcut QPM #2 11/30/24 subcutaneous pen injector syringes (Norditropin FlexPro) lacosamide 150 mg tablet 150 mg PO BID #60 tabs 12/26/24 metformin 1,000 mg tablet 1,000 mg PO BID #180 tabs 02/26/25 rimegepant 75 mg disintegrating 75 mg PO DAILY PRN Migraine 04/10/25 tablet (Nurtec ODT) Headache #16 tabs testosterone 2 pump topical PM #75 grams 03/18/25 formoterol fumarate 20 mcg/2 mL 20 mcg (2 mL) NEB BIDR #60 vials 03/24/25 solution for nebulization (Perforomist) acetylcysteine 200 mg/mL (20 %) 2 ml inhalation BID PRN Chest 03/26/25 solution congestion #100 mL cholecalciferol (vitamin D3) 50 50 mcg PO QPM #90 caps 03/26/25 mcg (2,000 unit) capsule sodium chloride 7 % for 1 inh inhalation BID #240 mL 03/26/25 nebulization tiotropium bromide 2.5 2 puff inhalation DAILY #4 grams 03/26/25 mcg/actuation mist for inhalation (Spiriva Respimat) apixaban 5 mg tablet (Eliquis) 5 mg PO Q12H #180 tabs 04/01/25 duloxetine 30 mg capsule,delayed 30 mg PO HS #30 caps 04/12/25 release ondansetron 8 mg disintegrating 8 mg PO Q8H PRN nausea and 04/29/25 tablet vomiting #30 tabs phenazopyridine 200 mg tablet 200 mg PO TID #9 tabs 04/29/25 (Pyridium) FreeStyle Rosalie 2 Sensor (flash #6 ea 05/06/25 glucose sensor) levothyroxine 150 mcg tablet 150 mcg PO DAILYBB #30 tabs 05/06/25 (Synthroid) Results & Data (ED) Vital Signs Vital Signs - 24 hr 05/13/25 13:24 05/13/25 13:33 05/13/25 13:34 Temperature 37 C Temperature Source Axillary Pulse Rate 97 H 99 H Pulse Rate [Apical] Pulse Rhythm [Apical] Pulse Strength [Apical] Respiratory Rate 12 Respiratory Effort / Characteristics Non-Labored Respiratory Depth Normal Respiratory Pattern Blood Pressure 150/89 H Blood Pressure [Left Arm] Blood Pressure Mean 109 Blood Pressure Mean [Left Arm] Pulse Oximetry 96 96 Oxygen Delivery Method Nasal Cannula Nasal Cannula Oxygen Flow Rate 2 2 Sepsis Recent Fever Within 48 Hours No Sepsis New/Unexplained Change in Mental Status No Sepsis Action Taken by Nursing No Action Required End-Tidal CO2 40 05/13/25 14:03 05/13/25 14:17 05/13/25 16:12 Temperature Temperature Source Pulse Rate 88 Pulse Rate [Apical] 87 76 Pulse Rhythm [Apical] Regular Pulse Strength [Apical] Normal Respiratory Rate 20 18 Respiratory Effort / Characteristics Non-Labored Respiratory Depth Normal Normal Respiratory Pattern Regular Blood Pressure Blood Pressure [Left Arm] 166/82 H 130/87 Blood Pressure Mean Blood Pressure Mean [Left Arm] 110 101 Pulse Oximetry 96 96 97 Oxygen Delivery Method Nasal Cannula Nasal Cannula Room Air Oxygen Flow Rate 2 2 Sepsis Recent Fever Within 48 Hours Sepsis New/Unexplained Change in Mental Status Sepsis Action Taken by Nursing End-Tidal CO2 05/13/25 18:08 Temperature Temperature Source Pulse Rate 69 Pulse Rate [Apical] Pulse Rhythm [Apical] Pulse Strength [Apical] Respiratory Rate Respiratory Effort / Characteristics Respiratory Depth Respiratory Pattern Blood Pressure Blood Pressure [Left Arm] Blood Pressure Mean Blood Pressure Mean [Left Arm] Pulse Oximetry Oxygen Delivery Method Oxygen Flow Rate Sepsis Recent Fever Within 48 Hours Sepsis New/Unexplained Change in Mental Status Sepsis Action Taken by Nursing End-Tidal CO2 Laboratory Data 05/13/25 13:34 05/13/25 13:34 Lab Results 05/13/25 05/13/25 05/13/25 Range/Units 13:24 13:34 13:42 WBC 10.70 (4.8-10.8) K/ul RBC 3.41 L (4.70-6.10) M/uL Hgb 9.7 L (14.0-18.0) g/dl Hct 29.4 L (42.0-52.0) % MCV 86.2 (80.0-100.0) fL MCH 28.4 (25.0-34.0) pg MCHC 33.0 (32.0-36.0) g/dL RDW Std Deviation 42.9 (36.4-46.3) fL RDW Coeff of Yanira 13.9 (11.5-14.5) % Plt Count 193 (130-400) K/uL MPV 8.9 L (9.4-12.4) fL Immature Gran % (Auto) 4.3 % Neut % (Auto) 72.9 % Lymph % (Auto) 14.3 % [place] % (Auto) 5.3 % Eos % (Auto) 2.7 % Baso % (Auto) 0.5 % Neut # (Auto) 7.80 H (1.40-6.50) K/uL Lymph # (Auto) 1.53 (1.20-3.40) K/uL [place] # (Auto) 0.57 (0.11-0.59) K/uL Eos # (Auto) 0.29 (0.00-0.50) K/uL Baso # (Auto) 0.05 (0.00-0.20) K/uL Immature Gran # (Auto) 0.46 H (0.01-0.20) K/uL Sodium 138 (136-145) mmol/L Potassium 4.1 (3.5-5.1) mmol/L Chloride 103 (98-107) mmol/L Carbon Dioxide 26 (21-32) mmol/L Anion Gap 9 (3-11) BUN 9 (6-23) mg/dl Creatinine 1.08 (0.6-1.4) mg/dl Est Cr Clr Drug Dosing 100.9 ml/min eGFR 80.54 BUN/Creatinine Ratio 8.3 L (10-20) Glucose 146 H (70-99(Fasting)) mg/dl POC Glucose 156 H (70-99) mg/dl Calcium 8.8 (8.6-10.3) mg/dl Total Bilirubin 0.2 (0.2-1.0) mg/dl AST 12 L (13-39) U/L ALT 8 (7-52) U/L Alkaline Phosphatase 60 (34-104) U/L Troponin I High Sens 5.9 (0-20) pg/ml Total Protein 5.7 L (6.0-8.3) gm/dl Albumin 3.4 (3.4-5.0) gm/dl Globulin 2.3 L (2.5-4.0) gm/dl Albumin/Globulin Ratio 1.5 (0.9-2) Lipase 34 (11-82) U/L Urine Color Red Urine Appearance Cloudy A (Clear) Urine pH 6.0 (4.5-7.5) Ur Specific [place] 1.013 (1.000-1.030) Urine Protein 2+ H (Negative) Urine Glucose (UA) Negative (Negative) Urine Ketones Negative (Negative) Urine Blood 3+ H (Negative) Urine Nitrite Negative (Negative) Urine Bilirubin Negative (Negative) Urine Urobilinogen Negative (Negative) Ur Leukocyte Esterase 3+ H (Negative) Urine WBC (Auto) 21-50 H (0-5) /hpf Urine RBC (Auto) >20 H (0-2) /hpf U Hyaline Cast (Auto) 0-2 (0-2) /lpf U Epithel Cells (Auto) 3-5 H (0-2) /hpf Urine Bacteria (Auto) None Seen (None Seen) Urine Comment Administered Medications Discontinued Medications Sodium Chloride (Nss) 1,000 mls @ 999 mls/hr IV .Q1H1M ONE Stop: 05/13/25 14:34 Last Infusion: 05/13/25 14:45 Dose: Infused Documented By: Admin: 05/13/25 13:44 Dose: 999 mls/hr Documented By: MAY Ceftriaxone Sodium (Rocephin) 2,000 mg in 50 mls @ 100 mls/hr IV NOW STA Stop: 05/13/25 15:55 Last Infusion: 05/13/25 16:07 Dose: Infused Documented By: Admin: 05/13/25 16:07 Dose: 100 mls/hr Documented By: KAVYA Ketorolac Tromethamine (Ketorolac Tromethamine 15 Mg/Ml Vial) 10 mg IV NOW ONE Stop: 05/13/25 16:29 Last Admin: 05/13/25 16:45 Dose: 10 mg Documented By: KAVYA Morphine Sulfate (Morphine Sulfate 4 Mg/Ml 1 Ml Carp\\Vial) 4 mg IV NOW STA Stop: 05/13/25 16:29 Last Admin: 05/13/25 16:45 Dose: 4 mg Documented By: KAVYA Imaging Data Radiologist's Impression: Head CT 05/13/25 13:32 CT head/brain wo con CLINICAL HISTORY: seizure. TECHNIQUE: Multiple axial CT images of the head were obtained without contrast. A dose lowering technique was utilized adhering to the principles of ALARA. CT DOSE: 813.12 mGy.cm COMPARISON: 03/27/2025 FINDINGS: 6 cm arachnoid cyst versus patrick cisterna magna again seen posterior aspect of the posterior cranial fossa. No intracranial hemorrhage seen. No mass effect, midline shift, or hydrocephalus. No skull fracture seen. Visualized paranasal sinuses and mastoid air cells are clear. IMPRESSION: No acute findings. ACT 112: Negative or not required by law. The above report was generated using voice recognition software. It may contain grammatical, syntax or spelling errors. Electronically signed by: Keon Crump M.D. 05/13/2025 2:08 PM KUB X-Ray 05/13/25 13:32 KUB HISTORY: abd pain COMPARISON STUDY: 05/07/2025 FINDINGS: Bilateral ureteral stents appear well-positioned. There is mild retained stool. No bowel obstruction seen. No gross free air. IMPRESSION: No acute findings. ACT 112: Negative or not required by law. The above report was generated using voice recognition software. It may contain grammatical, syntax or spelling errors. Electronically signed by: Keon Crump M.D. 05/13/2025 2:56 PM Abdomen/Pelvis CT 05/13/25 15:26 EXAMINATION: CT of the abdomen and pelvis performed without contrast TECHNIQUE: Helical CT images from the lung bases through the symphysis pubis were obtained without contrast. Coronal and sagittal reformatted images were generated at a workstation for further assessment. Dose reduction techniques were achieved by using automatic exposure control and/or adjustment of mA and/or kV according to patient size and/or use of iterative reconstruction technique. COMPARISON: 04/06/2024 HISTORY: Abdominal pain FINDINGS: Lower chest: No consolidation. No pleural effusion or pneumothorax. Liver: No suspicious liver lesions. Gallbladder: No gallstones. No evidence of acute cholecystitis. Spleen: Normal size. Pancreas: No suspicious pancreatic lesions. The pancreatic duct is not dilated. Adrenal glands: No adrenal nodules. Kidneys: No hydronephrosis or obstructing renal stones. Bilateral nephroureteral stents. Bladder / Pelvic organs: Unremarkable. Bowel: No bowel obstruction. No abnormal bowel wall thickening. The appendix is unremarkable. Lymph nodes: No retroperitoneal, mesenteric, or pelvic lymphadenopathy. Peritoneum / Retroperitoneum: A small area of fluid in the left lower quadrant measuring 3 cm in diameter is seen and new from prior. Vessels: No infrarenal aortic aneurysm. Bones and soft tissues: No suspicious lesion in the bones. IMPRESSION: Bilateral nephroureteral stents, appear unremarkable. A small area of fluid in the left lower quadrant measuring 3 cm in diameter is seen and new from prior. No other acute finding. Electronically signed by Glynn Nguyen 05-13-2025 4:16 PM Discharge Plan Visit Data Chief Complaint: Seizure ED Provider: James Estrada Discharge Problem: Acute UTI, Abdominal pain, Seizure, Anemia Condition: Fair Forms Stand Alone Forms: [facility] Prescriptions Prescriptions: No Action clopidogrel [Plavix] 75 mg tablet 75 mg PO QPM lithium carbonate 300 mg tablet 300 mg PO AMHS fluticasone propionate [Flonase Allergy Relief] 50 mcg/actuation spray,suspension 1 spray intranasal HS PRN (Reason: allergy symptoms) Qty: 16 0RF Rx Instructions: administer into each nostril (DME) insulin syringe-needle U-100 [BD Insulin Syringe Ultra-Fine] 1 mL 30 gauge x 1/2" syringe See Rx Instructions .Route Qty: 300 1RF Rx Instructions: use tid (DME) MadeiraMadeiraTouch Verio test strips Strip See Rx Instructions .MEDSUPPLY Qty: 150 5RF Rx Instructions: check blood sugars 4 times a day (DME) blood-glucose meter [OneTouch Verio Reflect Meter] Misc See Rx Instructions miscellaneous .MEDSUPPLY Qty: 1 0RF Rx Instructions: As directed (DME) lancets [OneTouch Delica Plus Lancet] 33 gauge misc See Rx Instructions .MEDSUPPLY Qty: 150 5RF Rx Instructions: As directed check blood sugars 4 times a day Botox 200 unit recon soln See Rx Instructions IM .COMPLEX Qty: 1 3RF Rx Instructions: 155 UNITS IM IN THE FACE AND NECK MUSCLES EVERY 12 WEEKS PER MIGRAINE PROTOCOL rosuvastatin 20 mg tablet 20 mg PO QAM Qty: 90 2RF pantoprazole 40 mg tablet,delayed release (DR/EC) 40 mg PO BID Qty: 60 5RF (DME) pen needle, diabetic [BD Vy 2nd Gen Pen Needle] 32 gauge x 5/32" needle See Rx Instructions miscellaneous .MEDSUPPLY Qty: 100 3RF Rx Instructions: inject with a new pen needle daily lorazepam 0.5 mg tablet 0.5 mg PO DAILY PRN (Reason: Seizure Activity) levetiracetam 1,000 mg tablet 1,000 mg PO Q12H Qty: 60 6RF Norditropin FlexPro 5 mg/1.5 mL (3.3 mg/mL) pen injector 0.3 mg SQ QPM Qty: 2 5RF metoprolol succinate 25 mg tablet extended release 24 hr 25 mg PO HS Qty: 90 3RF desmopressin 0.2 mg tablet 0.4 mg PO BID Qty: 120 5RF lacosamide 150 mg tablet 150 mg PO BID Qty: 60 5RF (DME) Oxygen Home Liters Per Minute See Rx Instructions .Route Rx Instructions: 4 L o2 via NC As directed, metformin 1,000 mg tablet 1,000 mg PO BID Qty: 180 3RF Hold Instructions: Per Dr Voss to hold as of 11/23/22 testosterone 20.25 mg/1.25 gram (1.62 %) gel in metered-dose pump 2 pump TOP PM Qty: 75 5RF Rx Instructions: apply 1 pump amount over max area of EACH upper arm and shoulder PDMP Queried ok to fill 03/17/2023 DS cholecalciferol (vitamin D3) 50 mcg (2,000 unit) capsule 50 mcg PO QPM Qty: 90 1RF Eliquis 5 mg tablet 5 mg PO Q12H Qty: 180 3RF Hold Instructions: Resume on 05/20/34. Hold aspirin and Plavix in light of maranda hematuria: Resume based on urology recommendations post cystoscopy Reviewed patient's records, no history of PE/DVT and unclear why patient was also getting apixaban when he has a watchman's device Apixaban has been stopped. levothyroxine [Synthroid] 150 mcg tablet 150 mcg PO DAILYBB Qty: 30 5RF (DME) FreeStyle Rosalie 2 Sensor Kit See Rx Instructions .Route Qty: 6 3RF Rx Instructions: Change every 14 days (DME) FreeStyle Rosalie 2 [place] Misc See Rx Instructions .Route Qty: 1 0RF Rx Instructions: Check blood glucose before each meal mirtazapine [Remeron] 30 mg tablet 30 mg PO HS albuterol sulfate [Ventolin HFA] 90 mcg/actuation HFA aerosol inhaler 2 inh inhalation Q6H PRN (Reason: shortness of breath or wheezing) Qty: 6.7 2RF venlafaxine 75 mg capsule,extended release 24hr 75 mg PO QAM Rx Instructions: Take with 150mg cap prazosin 5 mg capsule 5 mg PO HS ramelteon 8 mg tablet 8 mg PO HS (DME) nebulizers [Compact Compressor Nebulizer] Misc See Rx Instructions .Route Qty: 1 0RF Rx Instructions: One compact compressor nebulizer. Use as directed. Please include tubing, mouth piece and cup. ipratropium-albuterol 0.5 mg-3 mg(2.5 mg base)/3 mL solution for nebulization 3 ml inhalation QID PRN (Reason: wheezing) Qty: 90 0RF trazodone 100 mg tablet 100 mg PO HS ondansetron 8 mg tablet,disintegrating 8 mg PO Q8H PRN (Reason: nausea and vomiting) Qty: 30 0RF phenazopyridine [Pyridium] 200 mg tablet 200 mg PO TID Qty: 9 2RF Rx Instructions: Can take three times daily for up to three days; then must give the body a two day break ferrous sulfate 325 mg (65 mg iron) tablet 325 mg PO Q OTHER DAY insulin glargine [Lantus Solostar U-100 Insulin] 100 unit/mL (3 mL) insulin pen 12 unit SUBCUT HS Hold Instructions: Has been on hold for a few weeks per pt Patient Comments: PER PT HE IS TAKING 12 UNITS -CONFIRMED ON 07/19/24 Nurtec ODT 75 mg tablet,disintegrating 75 mg PO DAILY PRN (Reason: Migraine Headache) Qty: 16 6RF magnesium oxide 400 mg (241.3 mg magnesium) tablet 400 mg PO DAILY potassium chloride 10 mEq tablet extended release 10 meq PO QPM propranolol 120 mg capsule,extended release 24hr 120 mg PO HS Spiriva Respimat 2.5 mcg/actuation mist 2 puff inhalation DAILY Qty: 4 4RF sodium chloride 7 % solution for nebulization 1 inh inhalation BID Qty: 240 3RF acetylcysteine 200 mg/mL (20 %) solution 2 ml inhalation BID PRN (Reason: Chest congestion) Qty: 100 6RF dutasteride 0.5 mg capsule 0.5 mg PO QAM Rx Instructions: TAKE 1 CAPSULE BY MOUTH DAILY IN THE MORNING Baqsimi 3 mg/actuation spray,non-aerosol 3 mg intranasal ONCE PRN (Reason: Severe Hypoglycemia) Rx Instructions: for treatment of severe hypoglycemia, second dose may be given if patient does not respond after 15 minutes . Per caregiver, pt has never has to use this medication. bumetanide 1 mg Tablet 1 mg PO QAM Qty: 30 0RF vitamin B complex [Vitamins B Complex] Capsule 1 cap PO QAM Qty: 30 0RF oxybutynin chloride 5 mg tablet extended release 24hr 5 mg PO QAM Rx Instructions: TAKE 1 TABLET BY MOUTH DAILY arformoterol [Brovana] 15 mcg/2 mL solution for nebulization 2 ml inhalation BID venlafaxine 150 mg capsule,extended release 24hr 150 mg PO QAM quetiapine 50 mg tablet extended release 24 hr 50 mg PO QAM nystatin 100,000 unit/gram cream 1 applic topical BID PRN (Reason: Other) formoterol fumarate [Perforomist] 20 mcg/2 mL Solution For Nebulization 20 mcg NEB BIDR Qty: 60 0RF duloxetine 30 mg capsule,delayed release(DR/EC) 30 mg PO HS Qty: 30 0RF tirzepatide 5 mg/0.5 mL pen injector 5 mg subcut WK Rx Instructions: tuesday PER PT "HOLDING DOSE ON 05/05/25 FOR PROCEDURE". aripiprazole 5 mg tablet 5 mg PO QAM divalproex 500 mg tablet,delayed release (DR/EC) 1,000 mg PO QAM oxycodone-acetaminophen [Percocet] 5-325 mg tablet 1.5 tab PO Q6H PRN (Reason: pain (scale score 7-10)) famotidine [Acid Truck Cleaner (famotidine)] 20 mg tablet 20 mg PO QAM budesonide 0.5 mg/2 mL suspension for nebulization 0.5 mg inhalation QPM hydrocortisone 10 mg tablet 10 - 20 mg PO UD Rx Instructions: 2 tabs (20mg) in AM, 1 tab (10mg) in PM lisinopril 40 mg tablet 40 mg PO QAM duloxetine 60 mg capsule,delayed release(DR/EC) 60 mg PO QAM aspirin 81 mg capsule 81 mg PO QPM Referrals Referrals: Pro,Larry Crisostomo MD [Primary Care Provider] - Discharge Problem: Abdominal pain Qualifiers: Abdominal location: unspecified location Qualified Code(s): R10.9 - Unspecified abdominal pain Anemia Qualifiers: Anemia type: unspecified type Qualified Code(s): D64.9 - Anemia, unspecified
[2025-05-13] MEDS: SODIUM CHLORIDE 0.9% 1,000 ML IV ONE (13:44)
[2025-05-13 13:55] LABS: Basophils # (auto) 0.05 K/uL (0.00-0.20); Basophils % (auto) 0.5 %; Eosinophils # (auto) 0.29 K/uL (0.00-0.50); Eosinophils % (auto) 2.7 %; Hematocrit (blood only) 29.4 % (42.0-52.0); Hemoglobin 9.7 g/dl (14.0-18.0); Immature Granulocytes # (auto) 0.46 K/uL (0.01-0.20); Immature Granulocytes % (auto) 4.3 %; Lymphocytes # (auto) 1.53 K/uL (1.20-3.40); Lymphocytes % (auto) 14.3 %; Mean Corpuscular Hemoglobin 28.4 pg (25.0-34.0); Mean Corpuscular Volume 86.2 fL (80.0-100.0); Mean Platelet Volume 8.9 fL (9.4-12.4); Monocytes # (auto) 0.57 K/uL (0.11-0.59); Monocytes % (auto) 5.3 %; Neutrophils % (auto) 72.9 %; Platelet Count 193 K/uL (130-400); RDW Coefficient of Variation 13.9 % (11.5-14.5); RDW Standard Deviation 42.9 fL (36.4-46.3); Red Blood Count 3.41 M/uL (4.70-6.10)
--- NOTE | 2025-05-13 14:09 | CT Scan Report ---
CT head/brain wo con CLINICAL HISTORY: seizure. TECHNIQUE: Multiple axial CT images of the head were obtained without contrast. A dose lowering tech nique was utilized adhering to the principles of ALARA. CT DOSE: 813.12 mGy.cm COMPARISON: 03/27/2025 FINDINGS: 6 cm arachnoid cyst versus patrick cisterna magna again seen posterior aspect of the posterior cranial fossa. No intracranial hemorrhage seen. No mass effect, midline shift, or hydrocephalus. No skull fracture seen. Visualized paranasal sinuses and mastoid air cells are clear. IMPRESSION: No acute findings. ACT 112: Negative or not required by law. The above report was generated using voice recognition software. It may contain grammatical, syntax o r spelling errors. Electronically signed by: Keon Crump M.D. 05/13/2025 2:08 PM
[2025-05-13 14:12] LABS: Appearance Urine Cloudy (Clear); Bacteria Urine Automated None Seen (None Seen); Bilirubin Urine Negative (Negative); Blood Urine 3+ (Negative); Cast Urine Automated 0-2 /lpf (0-2); Color Urine Red; Glucose Urine UA Negative (Negative); Ketones Urine Negative (Negative); Leukocyte Esterase Urine 3+ (Negative); Nitrite Urine Negative (Negative); Protein Urine 2+ (Negative); RBC Urine Automated >20 /hpf (0-2); Specific Gravity Urine 1.013 (1.000-1.030); Urobilinogen Urine Negative (Negative); WBC Urine Automated 21-50 /hpf (0-5)
[2025-05-13 14:23] LABS: Albumin Level 3.4 gm/dl (3.4-5.0); Bilirubin,Total 0.2 mg/dl (0.2-1.0); Calcium 8.8 mg/dl (8.6-10.3); Potassium 4.1 mmol/L (3.5-5.1)
[2025-05-13 14:29] LABS: Albumin Globulin Ratio 1.5 (0.9-2); BUN Creatinine Ratio 8.3 (10-20); Creatinine Clr Calc Pharmacy 100.9 ml/min; Globulin 2.3 gm/dl (2.5-4.0); Total Protein 5.7 gm/dl (6.0-8.3)
[2025-05-13 14:32] LABS: Troponin I High Sensitivity 5.9 pg/ml (0-20)
--- NOTE | 2025-05-13 14:57 | XRay Report ---
KUB HISTORY: abd pain COMPARISON STUDY: 05/07/2025 FINDINGS: Bilateral ureteral stents appear well-positioned. There is mild retained stool. No bowel ob struction seen. No gross free air. IMPRESSION: No acute findings. ACT 112: Negative or not required by law. The above report was generated using voice recognition software. It may contain grammatical, syntax o r spelling errors. Electronically signed by: Keon Crump M.D. 05/13/2025 2:56 PM
[2025-05-13] MEDS: cefTRIAXone SODIUM 2,000 MG/50 ML BAG IV STA (16:07)
--- NOTE | 2025-05-13 16:16 | CT Scan Report ---
EXAMINATION: CT of the abdomen and pelvis performed without contrast TECHNIQUE: Helical CT images from the lung bases through the symphysis pubis were obtained without contrast. Coronal and sagittal reformatted images were generated at a workstation for further assessment. Dose reduction techniques were achieved by using automatic exposure control and/or adjustment of mA and/or kV according to patient size and/or use of iterative reconstruction technique. COMPARISON: 04/06/2024 HISTORY: Abdominal pain FINDINGS: Lower chest: No consolidation. No pleural effusion or pneumothorax. Liver: No suspicious liver lesions. Gallbladder: No gallstones. No evidence of acute cholecystitis. Spleen: Normal size. Pancreas: No suspicious pancreatic lesions. The pancreatic duct is not dilated. Adrenal glands: No adrenal nodules. Kidneys: No hydronephrosis or obstructing renal stones. Bilateral nephroureteral stents. Bladder / Pelvic organs: Unremarkable. Bowel: No bowel obstruction. No abnormal bowel wall thickening. The appendix is unremarkable. Lymph nodes: No retroperitoneal, mesenteric, or pelvic lymphadenopathy. Peritoneum / Retroperitoneum: A small area of fluid in the left lower quadrant measuring 3 cm in diameter is seen and new from prior. Vessels: No infrarenal aortic aneurysm. Bones and soft tissues: No suspicious lesion in the bones. IMPRESSION: Bilateral nephroureteral stents, appear unremarkable. A small area of fluid in the left lower quadrant measuring 3 cm in diameter is seen and new from prior. No other acute finding. Electronically signed by Glynn Nguyen 05-13-2025 4:16 PM
[2025-05-13] MEDS: KETOROLAC TROMETHAMINE 15 MG/ML VIAL IV ONE (16:45)
[2025-05-13] MEDS: MoRPHine SULFATE 4 MG/ML 1 ML CARP\\VIAL IV STA (16:45)
--- NOTE | 2025-05-13 17:12 | History & Physical Report ---
Date of Service May 13, 2025 Assessment & Plan (1) Kidney stones: (2) Panhypopituitarism: (3) Atrial fibrillation: (4) Psychogenic nonepileptic seizure: (5) Diabetes: (6) Bipolar 1 disorder: Plan 54-year-old male Re presents after 1 day discharge with abdominal pain with recent ureteral stent placement. Patient reportedly had seizure-like activity en route and has a history of pending MARY KAY. He was given 6 mg of Versed. Upon awakening after the Versed he continues have significant intractable pain #Abdominal pain/renal colic patient will be brought in our facility continued cultures and antibiotics. Pain control with parenteral opiate therapy good hydration with intravenous fluid x 2 L. Patient has a new area of fluid collection on CT scan however this is on the contralateral side of where his most pain is. ureteral stents are in good position antibiotics will be ceftriaxone, urine cultures reobtained. Discussed electronically with Dr. Reji Mendoza will see in consultation or someone from his group tomorrow he may need to have ureteral stents removed due to pain and hematuria we will keep him n.p.o. after midnight #Panhypopituitary, typically sees Dr. Voss Takes desmopressin 0.4 p.o. twice daily Adrenal insufficiency treated with hydrocortisone 20 mg in the morning 10 mg at 2 PM Acquired hypothyroidism with levothyroxine 150 mcg a day Hypogonadism treated with testosterone to 20.25 mg / 1.25 g gel 2 pumps topically every afternoon #Atrial fibrillation patient reportedly had a Watchman procedure January 2024 remains on Toprol XL (also on propranolol for tremor) for rate control and Eliquis therapy, its unclear if this was restarted after watchman, . Is on dual antiplatelet therapy that was held for cystoscopy. #Diabetes patient is on metformin, glargine and monjouro. 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 Mention the patient is on Botox and Nurtec #Bipolar disorder continues on Abilify lithium mirtazapine prazosin and propranolol Effexor trazodone typically followed by Dr. Berry we will check a lithium level #Chronic low back pain typically taken duloxetine DVT prevention is Eliquis therapy History of Present Illness Primary Care Provider: Larry Amaral MD 54-year-old male with a past medical history of recent bilateral ureteral stent placed 07 May who was discharged on 12 May. Patient comes in with abdominal pain seizure-like activity en route receiving 6 mg of Versed. History of A-fib on Eliquis despite having Watchman procedure in 2023, type 2 diabetes hypertension hyperlipidemia PNES, lumbar stenosis with neurogenic claudication, panhypopituitary chronic kidney disease stage III chronic adrenal insufficiency. Reportedly patient is having significant pain and discomfort Allergies Allergy/AdvReac Type Severity Reaction Status Date / Time clindamycin Allergy Intermediate SWELLING Verified 05/06/25 11:57 Iodinated Contrast Media Allergy Intermediate face/eye Verified 05/06/25 11:57 swelling Quinolones Allergy Intermediate HIVES Verified 05/06/25 11:57 tomato AdvReac Unknown Unknown Verified 05/06/25 11:57 Home Medications Medication Instructions Recorded Confirmed Type lithium carbonate 300 mg tablet 300 mg PO AMHS 06/04/22 05/13/25 History mirtazapine 30 mg tablet (Remeron) 30 mg PO HS 06/23/22 05/13/25 History fluticasone propionate 50 1 spray intranasal HS PRN allergy 03/16/23 05/13/25 Rx mcg/actuation nasal symptoms #16 grams spray,suspension (Flonase Allergy Relief) FreeStyle Rosalie 2 [place] (flash #1 ea 05/13/23 05/02/25 Rx glucose scanning reader) blood sugar diagnostic (RingTouch #150 ea 11/22/23 05/02/25 Rx Verio test strips) blood-glucose meter (OneTouch #1 ea 11/22/23 05/02/25 Rx Verio Reflect Meter) insulin syringe-needle U-100 1 mL #300 ea 11/22/23 05/02/25 Rx 30 gauge x 1/2" (BD Insulin Syringe Ultra-Fine) lancets 33 gauge (OneTouch Delica #150 ea 11/22/23 05/02/25 Rx Plus Lancet) albuterol sulfate 90 mcg/actuation 2 inh inhalation Q6H PRN shortness 02/24/24 05/13/25 Rx aerosol inhaler (Ventolin HFA) of breath or wheezing #6.7 grams dutasteride 0.5 mg capsule 0.5 mg PO QAM 04/06/24 05/13/25 History glucagon 3 mg/actuation nasal 3 mg intranasal ONCE PRN Severe 04/06/24 05/13/25 History spray (Baqsimi) Hypoglycemia aripiprazole 5 mg tablet 5 mg PO QAM 05/29/24 05/13/25 History insulin glargine 100 unit/mL (3 12 unit subcut HS 07/19/24 05/13/25 History mL) subcutaneous pen (Lantus Solostar U-100 Insulin) ipratropium 0.5 mg-albuterol 3 mg 3 ml inhalation QID PRN wheezing 07/31/24 05/13/25 Rx (2.5 mg base)/3 mL nebulization #90 mL soln nebulizers (Compact Compressor #1 ea 07/31/24 05/02/25 Rx Nebulizer) Botox 200 unit injection See Rx Instructions IM .COMPLEX #1 09/18/24 05/13/25 Rx (onabotulinumtoxinA) ea rosuvastatin 20 mg tablet 20 mg PO QAM #90 tabs 09/19/24 05/13/25 Rx pantoprazole 40 mg tablet,delayed 40 mg PO BID #60 tabs 09/21/24 05/13/25 Rx release trazodone 100 mg tablet 100 mg PO HS 10/03/24 05/13/25 History pen needle, diabetic 32 gauge x #100 ea 10/23/24 05/02/25 Rx 5/32" (BD Vy 2nd Gen Pen Needle) bumetanide 1 mg tablet 1 mg PO QAM #30 tabs 10/26/24 05/13/25 Rx vitamin B complex (Vitamins B 1 cap PO QAM #30 caps 10/26/24 05/13/25 Rx Complex capsule) lorazepam 0.5 mg tablet 0.5 mg PO DAILY PRN Seizure 11/23/24 05/13/25 History Activity levetiracetam 1,000 mg tablet 1,000 mg PO Q12H #60 tabs 11/26/24 05/13/25 Rx ferrous sulfate 325 mg (65 mg 325 mg PO Q OTHER DAY 11/27/24 05/13/25 History iron) tablet desmopressin 0.2 mg tablet 0.4 mg (2 x 0.2 mg) PO BID #120 11/30/24 05/13/25 Rx tabs metoprolol succinate 25 mg 25 mg PO HS #90 tabs 11/30/24 05/13/25 Rx tablet,extended release 24 hr somatropin 5 mg/1.5 mL (3.3 mg/mL) 0.3 mg (0.09 mL) subcut QPM #2 11/30/24 05/13/25 Rx subcutaneous pen injector syringes (Norditropin FlexPro) clopidogrel 75 mg tablet (Plavix) 75 mg PO QPM 12/03/24 05/13/25 History lacosamide 150 mg tablet 150 mg PO BID #60 tabs 12/26/24 05/13/25 Rx arformoterol 15 mcg/2 mL solution 2 ml inhalation BID 01/16/25 05/13/25 History for nebulization (Brovana) oxybutynin chloride 5 mg 5 mg PO QAM 01/16/25 05/13/25 History tablet,extended release 24 hr Oxygen Home 01/30/25 05/02/25 History metformin 1,000 mg tablet 1,000 mg PO BID #180 tabs 02/26/25 05/13/25 Rx rimegepant 75 mg disintegrating 75 mg PO DAILY PRN Migraine 02/28/25 05/13/25 Rx tablet (Nurtec ODT) Headache #16 tabs magnesium oxide 400 mg (241.3 mg 400 mg PO DAILY 03/01/25 05/13/25 History magnesium) tablet potassium chloride 10 mEq 10 meq PO QPM 03/01/25 05/13/25 History tablet,extended release testosterone 2 pump topical PM #75 grams 03/18/25 05/13/25 Rx nystatin 100,000 unit/gram topical 1 applic topical BID PRN Other 03/19/25 05/13/25 History cream quetiapine 50 mg tablet,extended 50 mg PO QAM 03/19/25 05/13/25 History release 24 hr venlafaxine 150 mg 150 mg PO QAM 03/19/25 05/13/25 History capsule,extended release 24 hr formoterol fumarate 20 mcg/2 mL 20 mcg (2 mL) NEB BIDR #60 vials 03/24/25 05/13/25 Rx solution for nebulization (Perforomist) acetylcysteine 200 mg/mL (20 %) 2 ml inhalation BID PRN Chest 03/26/25 05/13/25 Rx solution congestion #100 mL cholecalciferol (vitamin D3) 50 50 mcg PO QPM #90 caps 03/26/25 05/13/25 Rx mcg (2,000 unit) capsule propranolol 120 mg capsule,24 120 mg PO HS 03/26/25 05/13/25 History hr,extended release sodium chloride 7 % for 1 inh inhalation BID #240 mL 03/26/25 05/13/25 Rx nebulization tiotropium bromide 2.5 2 puff inhalation DAILY #4 grams 03/26/25 05/13/25 Rx mcg/actuation mist for inhalation (Spiriva Respimat) apixaban 5 mg tablet (Eliquis) 5 mg PO Q12H #180 tabs 04/01/25 05/13/25 Rx prazosin 5 mg capsule 5 mg PO HS 04/05/25 05/13/25 History ramelteon 8 mg tablet 8 mg PO HS 04/05/25 05/13/25 History venlafaxine 75 mg capsule,extended 75 mg PO QAM 04/05/25 05/13/25 History release 24 hr duloxetine 30 mg capsule,delayed 30 mg PO HS #30 caps 04/12/25 05/13/25 Rx release ondansetron 8 mg disintegrating 8 mg PO Q8H PRN nausea and 04/29/25 05/13/25 Rx tablet vomiting #30 tabs phenazopyridine 200 mg tablet 200 mg PO TID #9 tabs 04/29/25 05/13/25 Rx (Pyridium) aspirin 81 mg capsule 81 mg PO QPM 05/03/25 05/13/25 History budesonide 0.5 mg/2 mL suspension 0.5 mg inhalation QPM 05/03/25 05/13/25 History for nebulization divalproex 500 mg tablet,delayed 1,000 mg PO QAM 05/03/25 05/13/25 History release duloxetine 60 mg capsule,delayed 60 mg PO QAM 05/03/25 05/13/25 History release famotidine 20 mg tablet (Acid 20 mg PO QAM 05/03/25 05/13/25 History Commission Auditor (famotidine)) hydrocortisone 10 mg tablet 10 - 20 mg PO UD 05/03/25 05/13/25 History lisinopril 40 mg tablet 40 mg PO QAM 05/03/25 05/13/25 History oxycodone-acetaminophen 5 mg-325 1.5 tab PO Q6H PRN pain (scale 05/03/25 05/13/25 History mg tablet (Percocet) score 7-10) tirzepatide 5 mg/0.5 mL 5 mg subcut WK 05/03/25 05/13/25 History subcutaneous pen injector FreeStyle Rosalie 2 Sensor (flash #6 ea 05/06/25 Rx glucose sensor) levothyroxine 150 mcg tablet 150 mcg PO DAILYBB #30 tabs 05/06/25 05/13/25 Rx (Synthroid) Past Med/Surg History Problem List (Updated 05/13/25 @ 17:01 by Talha Willingham MD) Bipolar 1 disorder Diabetes Psychogenic nonepileptic seizure Kidney stones currently causing severe pain Asthma COPD (chronic obstructive pulmonary disease) Intractable back pain (Acute) Encounter for preoperative assessment (Acute) Numbness of right foot Advanced care planning/counseling discussion Palliative care by specialist Back pain at L4-L5 level Bilateral nephrolithiasis (Chronic) Acute flank pain Elevated lactic acid level Compartment syndrome of lower extremity Ambulatory dysfunction (Acute) Arthralgia Venous stasis ulcers (Acute) Chronic venous insufficiency (Chronic) Presbyopia of both eyes Epiretinal membrane (ERM) of left eye Ocular hypertension Secondary cataract of left eye with vision obscured Combined form of senile cataract of right eye Abnormal chest CT Demyelinating disease Esophageal dysphagia 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 Current use of proton pump inhibitor Chronic migraine without aura or status migrainosus Anemia (Acute) Ulcerative colitis Mixed hyperlipidemia Lumbar stenosis with neurogenic claudication Arachnoid cyst of posterior cranial fossa Pseudoseizures Idiopathic polyneuropathy Essential tremor Mitral regurgitation Depression Anxiety (Chronic) Medical History (Updated 05/13/25 @ 17:01 by Talha Willingham MD) History of pneumonia (03/2025) states has been admitted for total of 36 days ytd at [facility] for pneumonia, last was approxl 1 month ago Ocular hypertension Ulcerative colitis Mixed hyperlipidemia Lumbar stenosis with neurogenic claudication Idiopathic polyneuropathy Essential tremor Demyelinating disease Compartment syndrome of lower extremity (02/2025) per hx Chronic venous insufficiency Back pain at L4-L5 level Arthralgia Depression with anxiety Hx of fall (11/2024) History of dysphagia Hematuria On home O2 4 L nc History of recent hospitalization states has been in hospital 36 days this year so far with pneumonia- last was approx 1 month ago Sepsis Pyelonephritis Urinary tract obstruction due to kidney stone Lactic acidosis LPRD (laryngopharyngeal reflux disease) Severe obesity (BMI 35.0-35.9 with comorbidity) Uncontrolled type 2 diabetes mellitus with hyperglycemia Suspect low glycation index meaning his A1c is typically about 2 points lower than what his average glucose would suggest. Hypothyroidism Hypertension Non-occlusive coronary artery disease Acute dehydration hx Witnessed seizure-like activity Nonepileptic episode Chronic narcotic dependence COPD with exacerbation (03/2025) follows with dr. mccarthy (last seen while in hospital at [facility] with pneumonia ~) Anti-cyclic citrullinated peptide antibody positive Restrictive lung disease follows with dr. mccarthy, on O2 4L nc at all times Abnormal PFTs (pulmonary function tests) Bipolar disorder (10/11/22) Obstructive sleep apnea cpap 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 Follows with endocrinology- Secondary adrenal insufficiency Transient alteration of awareness Chronic adrenal insufficiency Leukocytosis Acute asthma exacerbation hx Acute on chronic hypoxic respiratory failure O2 4L nc Migraine Hematoma Growth hormone deficiency Diaphoresis hx Acute hypoxic respiratory failure hx Influenza A (12/2024) hx- Status epilepticus (09/13/24) Knee hemarthrosis, right (09/13/24) Acute on chronic anemia (09/13/24) Acute metabolic encephalopathy (09/13/24) hx Laceration of toe of right foot Closed fracture of right fibula with malunion Right fibular fracture hx Acute on chronic respiratory failure with hypoxia and hypercapnia Shortness of breath only if not wearing oxygen Chronic respiratory failure with hypoxia Obesity CKD (chronic kidney disease), stage III Peripheral edema Atrial fibrillation (02/15/24) no cardioversion- has loop recorder and watchmans device, follows with dr. kilgore (03/2025 while inpt.) Chronic low back pain Panhypopituitarism Lumbosacral radiculopathy Toxic encephalopathy Chest pain hx Acute dyspnea hx Acute CHF hx Hypoglycemia hx Syncope and collapse Reason for loop recorder No recent issues since bed bound from femur fracture in Sep 2022 per patient Internal hemorrhoids Recurrent seizures (05/01/25) goes sometimes months without seizures, then may may have 2 in one day- last seizure- 05/01/25- grand mal, lost control of bowel and bladder- informed neuro, dr. villa- told to stay on meds (last saw dr. villa on tu04/30/25) Pituitary diabetes insipidus Spondylolysis, lumbar region Right lumbar radiculopathy HTN (hypertension) Adrenal insufficiency Pituitary adenoma Hyperactive gag reflex BRCA gene positive tested positive in Aug 2023 [place] Family history of BRCA gene mutation PTSD (post-traumatic stress disorder) Epidural lipomatosis Chronic left sacroiliac pain Benzodiazepine overdose hx Presence of cardiac device Loop recorder > placed at [facility]- last checked fall 2023 Hx of fracture of foot Sep 2022- right > cast since removed > still gets painful Fracture of fibula, right, closed Cerebral concussion May 2023 during seizure > no further issues Orthostatic hypotension Sensorineural hearing loss of both ears Rectal bleeding on occasion History of COVID-19 10/2021 - fatigue; resolved. Mitral valve regurgitation follows with Dr. kilgore Vertigo Lower extremity edema Elevated LFTs Bilateral hand pain Pituitary neoplasm Dx'ed in 2001- s/p surgical resection and XRT Repeat surgery in 2018 secondary to tumor regrowth at [facility] Prostate mass benign Bladder mass benign Surgical History Presence of Watchman left atrial appendage closure device (02/2024) eric History of arthroplasty of left knee (2014) S/P TURP (status post transurethral resection of prostate) History of lumbar fusion (07/2022[place] [facility] [place] History of cardiac cath (07/2021) 07/2021 - no stents- no ms - [facility]- follows with dr. kilgore S/P epidural steroid injection History of lithotripsy Status post right foot surgery replaced 5th metatarsal--hardware in place History of bladder surgery remove mass History of prostate surgery (2016) remove mass- not malignant History of colonoscopy History of esophagogastroduodenoscopy (EGD) History of tooth extraction History of wisdom tooth extraction History of brain surgery x2---[place] @ [facility] [place] [facility] [place] @ [facility]--for brain tumors > caused epilepsy Family History Grandmother (Paternal) Family history of diabetes mellitus Aunt Family history of diabetes mellitus Uncle Family history of diabetes mellitus Father Prostate cancer Heart disease Osteoarthritis Mother Cardiac disorder Grandmother (Maternal) Myocardial infarction Other Asthma Cancer Hypertension No family history of adverse response to anesthesia No family history of bleeding disorder Stroke Denies family history of Ovarian cancer Breast cancer Colorectal cancer Social History Smoking Status: Unknown if ever smoked Second Hand Exposure: No; Do You Dip or Chew Tobacco: No; Hx Alcohol Use: No Hx Substance Use: No Preferred Language: Polish Communication Ability: Effective Communication Ability Comment: Unable to obtain due to patient condition. Visual Impairment: Limited Hearing Ability: Normal Senior Contracts Manager Required: No Beliefs That Will Affect Care: Lutheran marital status: Single Current Living Situation: Spouse Current Living Situation Comment: and daughter in [place] current occupational status: disabled How many Children do You have: 3 How many Children do You have Comment: able to assist with care if needed Feels Safe at Home: Yes Childhood Exposure to Second-Hand Smoke: Yes (parents smoked) Diet: regular Diet Comment: going to be starting low carb/low calorie diet. caffeine: No (1/2 20 oz bottle of mountain dew. ) during the past year weight has: increased > 10 lbs Physical Activity Frequency: Daily Physical Activity Frequency Comment: walking, 1.5 miles daily. Seatbelt Use: always Do you think of yourself as: straight/heterosexual Gender Identity: Male Assistive Devices: Cane and Oxygen - Continuous Review of Systems Review of Systems: Moderate to severe distress and fatigue no headache, no visual changes no speech or swallowing issues no chest pain, pressure or palpitations no shortness of breath, cough or wheezes Right-sided flank pain nausea without vomiting Difficulty urinating urinating clots and a vivian colored urine no focal joint pain or swelling Right CVA angle tenderness no bruising, bleeding or rashes no focal signs of weakness or numbness or altered sensation no complaints of anxiety or depression.. Physical Exam Physical Exam: The patient appeared well nourished and normally developed. Rates pain a 7/10 crescendo decrescendo right-sided CVA area worse with some movement Vital signs as documented. Head exam is normocephalic atraumatic Neck is without JVD, thyromegaly, or carotid bruits. Lungs are clear to auscultation, no focal loss of breath sounds Cardiac exam, Rhythm is regular.. No murmurs, rubs or gallops. Abdominal exam reveals normal bowel sounds, soft tenderness to right side abdomen and CVA area Extremities are nonedematous and both pedal pulses are present Neurologic exam is alert and oriented, no focal loss of strength or sensation Skin is without bruises or rashes Psychologically is without concerns for anxiety or depression.. Results & Data Results & Data Vital Signs (Past 12 Hours) Vital Signs Temp Pulse Pulse Resp BP BP Pulse Ox 05/13/25 16:12 76 18 130/87 97 05/13/25 14:17 87 20 166/82 H 96 05/13/25 14:03 88 96 05/13/25 13:34 96 05/13/25 13:33 99 H 05/13/25 13:24 98.6 F 97 H 12 150/89 H 96 O2 Del Method O2 Flow Rate 05/13/25 16:12 Room Air 05/13/25 14:17 Nasal Cannula 2 05/13/25 14:03 Nasal Cannula 2 05/13/25 13:34 Nasal Cannula 2 05/13/25 13:33 05/13/25 13:24 Nasal Cannula 2 Laboratory Results Reviewed previous hospital discharge CBC chemistries EKG showing sinus rhythm CT abdomen pelvis showing renal stents in good position fluid in the left lower quadrant measuring 3 cm in diameter from prior PG Care Time/CCT Total # of Minutes Spent Total Time Spent with Patient: Total time spent is greater than 50% in coordination of care (as documented) at patient's floor/unit and/or counseling patient: Coding Level of Care Code 72946 INT INP/OBS CARE 3/75MIN Diagnoses Kidney stones N20.0 Panhypopituitarism E23.0 Atrial fibrillation I48.91 Atrial fibrillation type: unspecified Psychogenic nonepileptic seizure F44.5 Diabetes E11.9 Bipolar 1 disorder F31.9 (3) Atrial fibrillation Atrial fibrillation type: unspecified Qualified Code(s): I48.91 - Unspecified atrial fibrillation
[2025-05-13] MEDS ORDERED: PHARMACY GLYCEMIC MGMT CONSULT PRN ×2 (17:41→20:33)
--- NOTE | 2025-05-13 18:35 | Pharmacy Report ---
Pharmacy Glycemic Short Note 2 - Date of Service May 13, 2025 - Glycemic Short BSG Results (Last 24 hours): 05/13/25 05/13/25 13:24 13:34 Glucose 146 H POC Glucose 156 H OUTPATIENT ANTIDIABETIC REGIMEN: * Lantus 12 units SQ HS * Mounjaro 5mg SQ LACKEY * metformin 1000mg PO BID ASSESSMENT: * 54-year-old male presenting with abdominal pain with recent ureteral stent placement, possible seizure activity. Pharmacy consulted for glycemic management. Recently admitted, will plan to utilize similar parameters to prior admission. PLAN FOR INPATIENT GLYCEMIC CONTROL: * Hold outpatient oral diabetes medications * Basal insulin * Lantus - hold * Bolus insulin * NovoLog per scale ACHS or Q6hrs while NPO * Goal Range: Low 110 mg/dL - High 140 mg/dL * Correction Factor: 35 mg/dL/unit * Nutritional / Prandial insulin per carb ratio of 1 unit per 12 grams CHO consumed
[2025-05-13] MEDS ORDERED: GLUCOSE 10 TAB/TUBE PO PRN ×2 (18:45→20:33)
[2025-05-13] MEDS ORDERED: CARBOHYDRATES FOR HYPOGLYCEMIA PO PRN ×2 (18:45→20:33)
[2025-05-13] MEDS ORDERED: DEXTROSE 50% 50 ML SYRINGE IV PRN ×2 (18:45→20:33)
[2025-05-13] MEDS ORDERED: GLUCAGON FOR INJ 1 MG VIAL SQ PRN ×2 (18:45→20:33)
[2025-05-13] MEDS ORDERED: GLUCOSE 40% GEL 15 GM TUBE PO PRN ×2 (18:45→20:33)
[2025-05-13] MEDS: SODIUM CHLORIDE 0.9% 1,000 ML IV SCH (19:35)
[2025-05-13] MEDS ORDERED: FLUTICASONE PROPIONATE NA SPR 16 GM BTL PRN (20:33)
[2025-05-13] MEDS ORDERED: MoRPHine SULFATE 2 MG/ML CARP IV PRN (20:33)
[2025-05-13] MEDS ORDERED: ONABOTULINUMTOXINA 200 UNIT IM SCH (20:33)
[2025-05-13] MEDS ORDERED: ALBUT/IPRATROP 3MG/0.5MG NEB 3 ML VIAL INH PRN (20:33)
[2025-05-13] MEDS ORDERED: LORazepam 0.5 MG TAB PO PRN (20:33)
[2025-05-13] MEDS ORDERED: TIRZEPATIDE 5 MG/0.5 ML SQ SCH (20:33)
[2025-05-13] MEDS ORDERED: NON-FORMULARY MEDICATION (Testosterone 20.25 mg/1.25 gram (1.62 %) gel in metered-dose pum TOP SCH (21:00)
[2025-05-13] MEDS ORDERED: NON-FORMULARY MEDICATION (Insulin Glargine [Lantus Solostar U-100 Insulin] 100 unit/mL (3 SQ SCH (21:00)
[2025-05-13] MEDS ORDERED: INSULIN ASPART PER UNIT CHARGE SC SCH (21:00)
--- NOTE | 2025-05-13 21:10 | Urology Consultation ---
Date of Consultation May 13, 2025 Assessment & Plan (1) Acute flank pain: The patient has been admitted on the hospitalist service. From urologic perspective we recommend the following: I suspect the patient's back/flank pain and lower abdominal pain are secondary to colic from his ureteral stents. Recommend making the patient n.p.o. after midnight Patient [facility] and a determination was made if patient should have his stents removed while he is currently hospitalized In the interim analgesics and antiemetic should be provided Patient is experiencing hematuria but he is able to void on his own (the nurses noted that he they did BladderScan him upon arrival to the floor and he had less than 50 cc on this study). If the patient should develop urinary retention straight catheterization with bladder flushing/irrigation may be required There is concern the patient may have an underlying urinary tract infection he has been placed on antibiotics in form of Rocephin which should continue. Appropriate urine culture has been sent and antibiotics can be tailored based on the results of this culture Additional recommendations be forthcoming based on his clinical course as unfolds History of Present Illness Reason for Consultation: Ureteral stent pain Hematuria Attending Physician: Talha Willingham MD History of Present Illness This is a 54-year-old male well-known to urology. The patient has had 2 recent cystoscopic interventions within the last month. On May 06 Dr. Mendoza performed a cystoscopy with a laser lithotripsy as well as kidney stone extraction. Patient was ultimately taken back to the operating room on 05/07/2025 where patient had bilateral ureteral stents placed. Patient presented to the emergency department today secondary to reported seizure-like activity. The patient was also complaining of bilateral flank pain with some radiation to his abdomen. He notes that he is able to urinate but he is passing gross hematuria with occasional blood clots making it somewhat difficult at times to urinate. He denies any fevers, shakes, or chills. He does not report any nausea or vomiting. Since arrival to the emergency department the patient has had labs and imaging which independent reviewed. CT scan of the head showed no acute intracranial findings. A KUB was performed which showed bilateral ureteral stents which appear to be well-positioned. There is no free intraperitoneal air noted. Patient also underwent a CT scan of the abdomen pelvis that showed again the patient had bilateral ureteral stents which appear to be in good position. Labs included CBC white blood cell count was normal. His platelet count was normal. Hemoglobin and hematocrit were 9.7 and 29.4. (When compared to previous levels this did not represent a precipitous drop). Chemistry profile showed sodium and potassium were normal. BUN and creatinine were both noted to be normal. Urinalysis showed 21-50 white blood cells per high-power field as well as 3+ leukocyte Estrace. There is no bacteria noted on the study. The specimen was also negative for nitrites. At the time of my interview patient was resting comfortably in bed he was in no distress. Allergies Allergy/AdvReac Type Severity Reaction Status Date / Time clindamycin Allergy Intermediate SWELLING Verified 05/06/25 11:57 Iodinated Contrast Media Allergy Intermediate face/eye Verified 05/06/25 11:57 swelling Quinolones Allergy Intermediate HIVES Verified 05/06/25 11:57 tomato AdvReac Unknown Unknown Verified 05/06/25 11:57 Home Medications Medication Instructions Recorded Confirmed Type lithium carbonate 300 mg tablet 300 mg PO AMHS 06/04/22 05/13/25 History mirtazapine 30 mg tablet (Remeron) 30 mg PO HS 06/23/22 05/13/25 History fluticasone propionate 50 1 spray intranasal HS PRN allergy 03/16/23 05/13/25 Rx mcg/actuation nasal symptoms #16 grams spray,suspension (Flonase Allergy Relief) [employer] Rosalie 2 Chama (flash #1 ea 05/13/23 05/02/25 Rx glucose scanning reader) blood sugar diagnostic (eASICuch #150 ea 11/22/23 05/02/25 Rx Verio test strips) blood-glucose meter (eASICuch #1 ea 11/22/23 05/02/25 Rx Verio Reflect Meter) insulin syringe-needle U-100 1 mL #300 ea 11/22/23 05/02/25 Rx 30 gauge x 1/2" (BD Insulin Syringe Ultra-Fine) lancets 33 gauge ([employer] Delica #150 ea 11/22/23 05/02/25 Rx Plus Lancet) albuterol sulfate 90 mcg/actuation 2 inh inhalation Q6H PRN shortness 02/24/24 05/13/25 Rx aerosol inhaler (Ventolin HFA) of breath or wheezing #6.7 grams dutasteride 0.5 mg capsule 0.5 mg PO QAM 04/06/24 05/13/25 History glucagon 3 mg/actuation nasal 3 mg intranasal ONCE PRN Severe 04/06/24 05/13/25 History spray (Baqsimi) Hypoglycemia aripiprazole 5 mg tablet 5 mg PO QAM 05/29/24 05/13/25 History insulin glargine 100 unit/mL (3 12 unit subcut HS 07/19/24 05/13/25 History mL) subcutaneous pen (Lantus Solostar U-100 Insulin) ipratropium 0.5 mg-albuterol 3 mg 3 ml inhalation QID PRN wheezing 07/31/24 05/13/25 Rx (2.5 mg base)/3 mL nebulization #90 mL soln nebulizers (Compact Compressor #1 ea 07/31/24 05/02/25 Rx Nebulizer) Botox 200 unit injection See Rx Instructions IM .COMPLEX #1 09/18/24 05/13/25 Rx (onabotulinumtoxinA) ea rosuvastatin 20 mg tablet 20 mg PO QAM #90 tabs 09/19/24 05/13/25 Rx pantoprazole 40 mg tablet,delayed 40 mg PO BID #60 tabs 09/21/24 05/13/25 Rx release trazodone 100 mg tablet 100 mg PO HS 10/03/24 05/13/25 History pen needle, diabetic 32 gauge x #100 ea 10/23/24 05/02/25 Rx 5/32" (BD Vy 2nd Gen Pen Needle) bumetanide 1 mg tablet 1 mg PO QAM #30 tabs 10/26/24 05/13/25 Rx vitamin B complex (Vitamins B 1 cap PO QAM #30 caps 10/26/24 05/13/25 Rx Complex capsule) lorazepam 0.5 mg tablet 0.5 mg PO DAILY PRN Seizure 11/23/24 05/13/25 History Activity levetiracetam 1,000 mg tablet 1,000 mg PO Q12H #60 tabs 11/26/24 05/13/25 Rx ferrous sulfate 325 mg (65 mg 325 mg PO Q OTHER DAY 11/27/24 05/13/25 History iron) tablet desmopressin 0.2 mg tablet 0.4 mg (2 x 0.2 mg) PO BID #120 11/30/24 05/13/25 Rx tabs metoprolol succinate 25 mg 25 mg PO HS #90 tabs 11/30/24 05/13/25 Rx tablet,extended release 24 hr somatropin 5 mg/1.5 mL (3.3 mg/mL) 0.3 mg (0.09 mL) subcut QPM #2 11/30/24 05/13/25 Rx subcutaneous pen injector syringes (Norditropin FlexPro) clopidogrel 75 mg tablet (Plavix) 75 mg PO QPM 12/03/24 05/13/25 History lacosamide 150 mg tablet 150 mg PO BID #60 tabs 12/26/24 05/13/25 Rx arformoterol 15 mcg/2 mL solution 2 ml inhalation BID 01/16/25 05/13/25 History for nebulization (Brovana) oxybutynin chloride 5 mg 5 mg PO QAM 01/16/25 05/13/25 History tablet,extended release 24 hr Oxygen Home 01/30/25 05/02/25 History metformin 1,000 mg tablet 1,000 mg PO BID #180 tabs 02/26/25 05/13/25 Rx rimegepant 75 mg disintegrating 75 mg PO DAILY PRN Migraine 02/28/25 05/13/25 Rx tablet (Nurtec ODT) Headache #16 tabs magnesium oxide 400 mg (241.3 mg 400 mg PO DAILY 03/01/25 05/13/25 History magnesium) tablet potassium chloride 10 mEq 10 meq PO QPM 03/01/25 05/13/25 History tablet,extended release testosterone 2 pump topical PM #75 grams 03/18/25 05/13/25 Rx nystatin 100,000 unit/gram topical 1 applic topical BID PRN Other 03/19/25 05/13/25 History cream quetiapine 50 mg tablet,extended 50 mg PO QAM 03/19/25 05/13/25 History release 24 hr venlafaxine 150 mg 150 mg PO QAM 03/19/25 05/13/25 History capsule,extended release 24 hr formoterol fumarate 20 mcg/2 mL 20 mcg (2 mL) NEB BIDR #60 vials 03/24/25 05/13/25 Rx solution for nebulization (Perforomist) acetylcysteine 200 mg/mL (20 %) 2 ml inhalation BID PRN Chest 03/26/25 05/13/25 Rx solution congestion #100 mL cholecalciferol (vitamin D3) 50 50 mcg PO QPM #90 caps 03/26/25 05/13/25 Rx mcg (2,000 unit) capsule propranolol 120 mg capsule,24 120 mg PO HS 03/26/25 05/13/25 History hr,extended release sodium chloride 7 % for 1 inh inhalation BID #240 mL 03/26/25 05/13/25 Rx nebulization tiotropium bromide 2.5 2 puff inhalation DAILY #4 grams 03/26/25 05/13/25 Rx mcg/actuation mist for inhalation (Spiriva Respimat) apixaban 5 mg tablet (Eliquis) 5 mg PO Q12H #180 tabs 04/01/25 05/13/25 Rx prazosin 5 mg capsule 5 mg PO HS 04/05/25 05/13/25 History ramelteon 8 mg tablet 8 mg PO HS 04/05/25 05/13/25 History venlafaxine 75 mg capsule,extended 75 mg PO QAM 04/05/25 05/13/25 History release 24 hr duloxetine 30 mg capsule,delayed 30 mg PO HS #30 caps 04/12/25 05/13/25 Rx release ondansetron 8 mg disintegrating 8 mg PO Q8H PRN nausea and 04/29/25 05/13/25 Rx tablet vomiting #30 tabs phenazopyridine 200 mg tablet 200 mg PO TID #9 tabs 04/29/25 05/13/25 Rx (Pyridium) aspirin 81 mg capsule 81 mg PO QPM 05/03/25 05/13/25 History budesonide 0.5 mg/2 mL suspension 0.5 mg inhalation QPM 05/03/25 05/13/25 History for nebulization divalproex 500 mg tablet,delayed 1,000 mg PO QAM 05/03/25 05/13/25 History release duloxetine 60 mg capsule,delayed 60 mg PO QAM 05/03/25 05/13/25 History release famotidine 20 mg tablet (Acid 20 mg PO QAM 05/03/25 05/13/25 History Atmospheric Scientist (famotidine)) hydrocortisone 10 mg tablet 10 - 20 mg PO UD 05/03/25 05/13/25 History lisinopril 40 mg tablet 40 mg PO QAM 05/03/25 05/13/25 History oxycodone-acetaminophen 5 mg-325 1.5 tab PO Q6H PRN pain (scale 05/03/25 05/13/25 History mg tablet (Percocet) score 7-10) tirzepatide 5 mg/0.5 mL 5 mg subcut WK 05/03/25 05/13/25 History subcutaneous pen injector FreeStyle Rosalie 2 Sensor (flash #6 ea 05/06/25 Rx glucose sensor) levothyroxine 150 mcg tablet 150 mcg PO DAILYBB #30 tabs 05/06/25 05/13/25 Rx (Synthroid) Patient History Medical History History of pneumonia (03/2025) states has been admitted for total of 36 days ytd at [facility] for pneumonia, last was approxl 1 month ago Ocular hypertension Ulcerative colitis Mixed hyperlipidemia Lumbar stenosis with neurogenic claudication Idiopathic polyneuropathy Essential tremor Demyelinating disease Compartment syndrome of lower extremity (02/2025) per hx Chronic venous insufficiency Back pain at L4-L5 level Arthralgia Depression with anxiety Hx of fall (11/2024) History of dysphagia Hematuria On home O2 4 L nc History of recent hospitalization states has been in hospital 36 days this year so far with pneumonia- last was approx 1 month ago Sepsis Pyelonephritis Urinary tract obstruction due to kidney stone Lactic acidosis LPRD (laryngopharyngeal reflux disease) Severe obesity (BMI 35.0-35.9 with comorbidity) Uncontrolled type 2 diabetes mellitus with hyperglycemia Suspect low glycation index meaning his A1c is typically about 2 points lower than what his average glucose would suggest. Hypothyroidism Hypertension Non-occlusive coronary artery disease Acute dehydration hx Witnessed seizure-like activity Nonepileptic episode Chronic narcotic dependence COPD with exacerbation (03/2025) follows with dr. mccarthy (last seen while in hospital at [facility] with pneumonia ~) Anti-cyclic citrullinated peptide antibody positive Restrictive lung disease follows with dr. mccarthy, on O2 4L nc at all times Abnormal PFTs (pulmonary function tests) Bipolar disorder (10/11/22) Obstructive sleep apnea cpap 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 Follows with endocrinology- Secondary adrenal insufficiency Transient alteration of awareness Chronic adrenal insufficiency Leukocytosis Acute asthma exacerbation hx Acute on chronic hypoxic respiratory failure O2 4L nc Migraine Hematoma Growth hormone deficiency Diaphoresis hx Acute hypoxic respiratory failure hx Influenza A (12/2024) hx- Status epilepticus (09/13/24) Knee hemarthrosis, right (09/13/24) Acute on chronic anemia (09/13/24) Acute metabolic encephalopathy (09/13/24) hx Laceration of toe of right foot Closed fracture of right fibula with malunion Right fibular fracture hx Acute on chronic respiratory failure with hypoxia and hypercapnia Shortness of breath only if not wearing oxygen Chronic respiratory failure with hypoxia Obesity CKD (chronic kidney disease), stage III Peripheral edema Atrial fibrillation (02/15/24) no cardioversion- has loop recorder and watchmans device, follows with dr. kilgore (03/2025 while inpt.) Chronic low back pain Panhypopituitarism Lumbosacral radiculopathy Toxic encephalopathy Chest pain hx Acute dyspnea hx Acute CHF hx Hypoglycemia hx Syncope and collapse Reason for loop recorder No recent issues since bed bound from femur fracture in Sep 2022 per patient Internal hemorrhoids Recurrent seizures (05/01/25) goes sometimes months without seizures, then may may have 2 in one day- last seizure- 05/01/25- grand mal, lost control of bowel and bladder- informed neuro, dr. villa- told to stay on meds (last saw dr. villa on tu04/30/25) Pituitary diabetes insipidus Spondylolysis, lumbar region Right lumbar radiculopathy HTN (hypertension) Adrenal insufficiency Pituitary adenoma Hyperactive gag reflex BRCA gene positive tested positive in Aug 2023 [place] Family history of BRCA gene mutation PTSD (post-traumatic stress disorder) Epidural lipomatosis Chronic left sacroiliac pain Benzodiazepine overdose hx Presence of cardiac device Loop recorder > placed at [facility]- last checked fall 2023 Hx of fracture of foot Sep 2022- right > cast since removed > still gets painful Fracture of fibula, right, closed Cerebral concussion May 2023 during seizure > no further issues Orthostatic hypotension Sensorineural hearing loss of both ears Rectal bleeding on occasion History of COVID-19 10/2021 - fatigue; resolved. Mitral valve regurgitation follows with Dr. kilgore Vertigo Lower extremity edema Elevated LFTs Bilateral hand pain Pituitary neoplasm Dx'ed in 2001- s/p surgical resection and XRT Repeat surgery in 2018 secondary to tumor regrowth at [facility] Prostate mass benign Bladder mass benign Surgical History Presence of Watchman left atrial appendage closure device (02/2024) eric History of arthroplasty of left knee (2014) S/P TURP (status post transurethral resection of prostate) History of lumbar fusion (07/2022) [facility] [place] 2022 History of cardiac cath (07/2021) 07/2021 - no stents- no sd - [facility]- follows with dr. kilgore S/P epidural steroid injection History of lithotripsy Status post right foot surgery replaced 5th metatarsal--hardware in place History of bladder surgery remove mass History of prostate surgery (2016) remove mass- not malignant History of colonoscopy History of esophagogastroduodenoscopy (EGD) History of tooth extraction History of wisdom tooth extraction History of brain surgery x2---2004 @ [facility], 2018 @ [facility]--for brain tumors > caused epilepsy Family History Grandmother (Paternal) Family history of diabetes mellitus Aunt Family history of diabetes mellitus Uncle Family history of diabetes mellitus Father Prostate cancer Heart disease Osteoarthritis Mother Cardiac disorder Grandmother (Maternal) Myocardial infarction Other Asthma Cancer Hypertension No family history of adverse response to anesthesia No family history of bleeding disorder Stroke Denies family history of Ovarian cancer Breast cancer Colorectal cancer Social History Smoking Status: Unknown if ever smoked Second Hand Exposure: No; Do You Dip or Chew Tobacco: No; Hx Alcohol Use: No Hx Substance Use: No Preferred Language: Guatemalan Communication Ability: Effective Communication Ability Comment: Unable to obtain due to patient condition. 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 caffeine: No (1/2 20 oz bottle of mountain dew. ) during the past year weight has: increased > 10 lbs Physical Activity Frequency: Daily Physical Activity Frequency Comment: walking, 1.5 miles daily. Seatbelt Use: always Do you think of yourself as: straight/heterosexual Gender Identity: Male Assistive Devices: Cane and Oxygen - Continuous Review of Systems Review of Systems: All systems reviewed & are unremarkable except as noted in HPI & below Physical Exam Constitutional: WD/WN, vitals as above Eyes: no conjunctival abnormality ENMT: Ears: no hearing impairment and no external ear abnormality Mouth: no oropharynx abnormality Neck: trachea midline Respiratory: normal respiratory effort; no respiratory distress and no labored breathing Cardiovascular: Rate/Rhythm: regular rate and regular rhythm Gastrointestinal (Abdomen): Abdomen is soft without rigidity, rebound tenderness, guarding, or signs of peritonitis. There was some slight pain noted with palpation in the lower abdomen Musculoskeletal: No calf tenderness Skin: no rashes Neurologic: moves all extremities Psychiatric: A+Ox3, euthymic affect Genitourinary: Slight bilateral CVA tenderness noted with percussion bilaterally Results & Data Vital Signs (Past 12 Hours) Vital Signs Temp Pulse Pulse Resp BP BP Pulse Ox 05/13/25 20:33 36.6 C 76 18 169/96 H 98 05/13/25 20:33 05/13/25 20:24 05/13/25 20:03 74 16 95 05/13/25 20:00 174/100 H 05/13/25 19:45 67 23 96 05/13/25 19:03 70 22 96 05/13/25 19:00 165/106 H 05/13/25 19:00 165/106 H 05/13/25 19:00 165/106 H 05/13/25 19:00 165/106 H 05/13/25 18:42 92 H 20 98 05/13/25 18:12 76 12 96 05/13/25 18:08 69 05/13/25 17:15 75 17 98 05/13/25 16:12 130/87 05/13/25 16:12 76 18 130/87 97 05/13/25 16:06 77 12 98 05/13/25 15:03 83 17 98 05/13/25 14:17 87 20 166/82 H 96 05/13/25 14:06 89 94 05/13/25 14:05 166/95 H 05/13/25 14:03 88 96 05/13/25 13:45 93 H 20 97 05/13/25 13:34 96 05/13/25 13:33 99 H 05/13/25 13:30 150/89 H 05/13/25 13:30 150/89 H 05/13/25 13:24 97 H 18 95 05/13/25 13:24 37 C 97 H 12 150/89 H 96 05/13/25 13:22 113/78 05/13/25 13:22 113/78 05/13/25 13:22 113/78 Pulse Ox O2 Del Method O2 Del Method O2 Flow Rate O2 Flow Rate 05/13/25 20:33 Nasal Cannula 2 05/13/25 20:33 98 Nasal Cannula 2 05/13/25 20:24 Nasal Cannula 2 05/13/25 20:03 05/13/25 20:00 05/13/25 19:45 05/13/25 19:03 05/13/25 19:00 05/13/25 19:00 05/13/25 19:00 05/13/25 19:00 05/13/25 18:42 05/13/25 18:12 05/13/25 18:08 05/13/25 17:15 05/13/25 16:12 05/13/25 16:12 Room Air 05/13/25 16:06 05/13/25 15:03 05/13/25 14:17 Nasal Cannula 2 05/13/25 14:06 05/13/25 14:05 05/13/25 14:03 Nasal Cannula 2 05/13/25 13:45 05/13/25 13:34 Nasal Cannula 2 05/13/25 13:33 05/13/25 13:30 05/13/25 13:30 05/13/25 13:24 05/13/25 13:24 Nasal Cannula 2 05/13/25 13:22 05/13/25 13:22 05/13/25 13:22 PG Care Time/CCT Total # of Minutes Spent Total Time Spent with Patient: Total time spent is greater than 50% in coordination of care (as documented) at patient's floor/unit and/or counseling patient: Coding Level of Care Code 62760 IN/OBS CONSULT LVL 5,80M Diagnoses Acute flank pain R10.9
[2025-05-13] MEDS: FORMOTEROL 20 MCG/2 ML VIAL NEB STA (21:23)
[2025-05-13] MEDS: BUDESONIDE 0.5 MG/2 ML VIAL (PULMICORT) INH SCH (21:23)
[2025-05-13] MEDS: POTASSIUM CHLORIDE 10 MEQ TABCR PO SCH (21:35)
[2025-05-13] MEDS: MoRPHine SULFATE 4 MG/ML 1 ML CARP\\VIAL IV PRN (21:35)
[2025-05-13] MEDS: APIXABAN 5 MG TABLET PO SCH (21:35)
[2025-05-13] MEDS: CHOLECALCIFEROL 25 MCG (1000 UNITS) TAB PO SCH (21:35)
[2025-05-13] MEDS: PRAZOSIN HCL 1 MG CAP PO SCH (21:48)
[2025-05-13] MEDS: PANTOprazole 40 MG TAB PO SCH (21:48)
[2025-05-13] MEDS: DULoxetine HCL 30 MG CAP PO SCH (21:48)
[2025-05-13] MEDS: DESMOPRESSIN ACETATE 0.1 MG TAB PO SCH (21:48)
[2025-05-13] MEDS: traZODone HCL 100 MG TAB PO SCH (21:49)
[2025-05-13] MEDS: LITHIUM CARBONATE 300 MG TAB PO SCH (21:49)
[2025-05-13] MEDS: HYDROCORTISONE 10 MG TAB PO SCH (21:49)
[2025-05-13] MEDS: levETIRAcetam 500 MG TAB PO SCH (21:49)
[2025-05-13] MEDS: MIRTAZAPINE TAB 15 MG TAB PO SCH (21:51)
[2025-05-13] MEDS: LACOSAMIDE 50 MG TABLET PO SCH (21:55)
[2025-05-13] MEDS: METOPROLOL SUCC 25MG EXT REL TAB PO SCH (21:55)
[2025-05-13] MEDS: PROPRANOLOL HCL 60 MG LA CAP PO SCH (21:56)
[2025-05-13] MEDS: INSULIN ASPART PER UNIT CHARGE SC SCH (22:10)
[2025-05-13] MEDS: oxyCODONE HCL IR 5 MG TAB (IMMEDIATE RELEASE) PO PRN (23:10)
[2025-05-14] MEDS ORDERED: Nursing to Pharmacy Communication SCH (03:00)
[2025-05-14] MEDS: LEVOTHYROXINE SODIUM 150 MCG TABLET PO SCH (05:46)
[2025-05-14 06:19] LABS: Hematocrit (blood only) 31.2 % (42.0-52.0); Hemoglobin 10.2 g/dl (14.0-18.0); Mean Corpuscular Hemoglobin 28.3 pg (25.0-34.0); Mean Corpuscular Hgb Conc 32.7 g/dL (32.0-36.0); Mean Corpuscular Volume 86.4 fL (80.0-100.0); Mean Platelet Volume 8.5 fL (9.4-12.4); Platelet Count 196 K/uL (130-400); RDW Coefficient of Variation 13.7 % (11.5-14.5); RDW Standard Deviation 42.6 fL (36.4-46.3); Red Blood Count 3.61 M/uL (4.70-6.10); White Blood Count 14.12 K/ul (4.8-10.8)
[2025-05-14 06:36] LABS: Calcium 8.6 mg/dl (8.6-10.3); Potassium 4.3 mmol/L (3.5-5.1)
[2025-05-14 06:41] LABS: Creatinine Clr Calc Pharmacy 107.2 ml/min
[2025-05-14] MEDS: FORMOTEROL 20 MCG/2 ML VIAL INH SCH (07:03)
--- NOTE | 2025-05-14 07:55 | Urology Progress Note ---
Date of Service May 14, 2025 Assessment & Plan (1) Abdominal pain: (2) Kidney stones: (3) Ureteral stent present: Plan Pt afebrile, hemodynamically stable Labs- WBCs 14.12, Hemoglobin 10.2, Creatinine 1.0 Urine culture pending. Prior UC 05/[address] shows bilateral stents in appropriate position. Continues with flank pain and hematuria which is likely due to the ureteral stents. Will plan to proceed to OR today for cystoscopy, bilateral retrograde pyelogram, bilateral ureteral stent removal. Risks/benefits to be reviewed with patient by Dr. King. Keep NPO. He is covered with IV Ceftriaxone. Continue pain management as needed. Urology will follow. Admission and Anticipated Discharge Date Admission Date: May 13, 2025 Supervising Physician Co-Signing Physician Notes Plan for stent removal in the OR today Subjective Pt seen at bedside today Awake and resting in bed on arrival No acute distress Has been NPO Review of Systems Constitutional: as per Subjective / HPI Genitourinary: + as per Subjective / HPI Physical Exam Constitutional: no acute distress Respiratory: no respiratory distress and no labored breathing Neurologic: moves all extremities and awake Psychiatric: A+Ox3, euthymic affect Results & Data Vital Signs (Past 12 Hours) Vital Signs Temp Pulse Pulse Resp BP BP Pulse Ox 05/14/25 07:07 36.6 C 66 17 150/81 H 98 05/14/25 07:05 68 18 98 05/14/25 03:10 36.6 C 66 18 132/87 96 05/13/25 23:07 36.7 C 74 18 157/95 H 96 05/13/25 21:58 73 05/13/25 21:52 73 166/96 H 05/13/25 21:23 71 18 97 05/13/25 20:57 05/13/25 20:33 36.6 C 76 18 169/96 H 98 05/13/25 20:33 05/13/25 20:29 69 05/13/25 20:24 05/13/25 20:03 74 16 95 05/13/25 20:00 174/100 H Pulse Ox O2 Del Method O2 Del Method O2 Flow Rate O2 Flow Rate 05/14/25 07:07 Nasal Cannula 2 05/14/25 07:05 Nasal Cannula 2 05/14/25 03:10 Nasal Cannula 2 05/13/25 23:07 Nasal Cannula 2 05/13/25 21:58 05/13/25 21:52 05/13/25 21:23 Nasal Cannula 2 05/13/25 20:57 Nasal Cannula 2 05/13/25 20:33 Nasal Cannula 2 05/13/25 20:33 98 Nasal Cannula 2 05/13/25 20:29 05/13/25 20:24 Nasal Cannula 2 05/13/25 20:03 05/13/25 20:00 PG Care Time/CCT Total # of Minutes Spent Total Time Spent with Patient: Total time spent is greater than 50% in coordination of care (as documented) at patient's floor/unit and/or counseling patient: Coding Level of Care Code 68947 SUB INP/OBS CARE 2/35MIN Diagnoses Abdominal pain R10.9 Abdominal location: unspecified location Kidney stones N20.0 Ureteral stent present Z96.0 (1) Abdominal pain Abdominal location: unspecified location Qualified Code(s): R10.9 - Unspecified abdominal pain
[2025-05-14] MEDS ORDERED: ONDANSETRON INJ 2 MG/ML 2 ML VIAL ONE (08:19)
[2025-05-14] MEDS ORDERED: PROPOFOL IV EMULSION 10 MG/ML 20 ML VIAL IV ONE (08:19)
[2025-05-14] MEDS ORDERED: MIDAZOLAM HCL 1 MG/ML 2ML VIAL ONE (08:20)
[2025-05-14] MEDS ORDERED: fentaNYL citrate PF 100 MCG/2 ML VIAL ONE (08:20)
[2025-05-14] MEDS: DIVALPROEX DELAY RELEASE 500 MG TAB PO SCH (08:51)
--- NOTE | 2025-05-14 09:22 | Anesthesiology Consultation ---
Date of Service May 14, 2025 Assessment & Plan Chart Review Chart Review: Acceptable Risk for Surgery Consults Requested none History Surgery Operation Date: 05/14/25 09:40 Proposed Procedures p Cystoscopy Bilateral Stent Removal - Glynn King MD Height/Weight Height: 5 ft 10 in Weight: 120.3 kg Allergies Allergy/AdvReac Type Severity Reaction Status Date / Time clindamycin Allergy Intermediate SWELLING Verified 05/14/25 08:22 Iodinated Contrast Media Allergy Intermediate face/eye Verified 05/14/25 08:22 swelling Quinolones Allergy Intermediate HIVES Verified 05/14/25 08:22 tomato AdvReac Unknown swelling Verified 05/14/25 08:22 Medications Home Medications Medication Instructions Recorded Confirmed Last Taken lithium carbonate 300 mg tablet 300 mg PO AMHS 06/04/22 05/13/25 05/03/25 08:00 mirtazapine 30 mg tablet (Remeron) 30 mg PO HS 06/23/22 05/13/25 05/02/25 fluticasone propionate 50 1 spray intranasal HS PRN allergy 03/16/23 05/13/25 Unknown mcg/actuation nasal symptoms #16 grams spray,suspension (Flonase Allergy Relief) FreeStyle Rosalie 2 Jackson (flash #1 ea 05/13/23 05/02/25 Unknown glucose scanning reader) blood sugar diagnostic (Mr. YouthTouch #150 ea 11/22/23 05/02/25 Unknown Verio test strips) blood-glucose meter (OneTouch #1 ea 11/22/23 05/02/25 Unknown Verio Reflect Meter) insulin syringe-needle U-100 1 mL #300 ea 11/22/23 05/02/25 Unknown 30 gauge x 1/2" (BD Insulin Syringe Ultra-Fine) lancets 33 gauge (OneTouch Delica #150 ea 11/22/23 05/02/25 Unknown Plus Lancet) albuterol sulfate 90 mcg/actuation 2 inh inhalation Q6H PRN shortness 02/24/24 05/13/25 Unknown aerosol inhaler (Ventolin HFA) of breath or wheezing #6.7 grams dutasteride 0.5 mg capsule 0.5 mg PO QAM 04/06/24 05/13/25 05/03/25 glucagon 3 mg/actuation nasal 3 mg intranasal ONCE PRN Severe 04/06/24 05/13/25 Unknown spray (Baqsimi) Hypoglycemia aripiprazole 5 mg tablet 5 mg PO QAM 05/29/24 05/13/25 05/03/25 insulin glargine 100 unit/mL (3 12 unit subcut HS 07/19/24 05/13/25 05/02/25 mL) subcutaneous pen (Lantus Solostar U-100 Insulin) ipratropium 0.5 mg-albuterol 3 mg 3 ml inhalation QID PRN wheezing 07/31/24 05/13/25 Unknown (2.5 mg base)/3 mL nebulization #90 mL soln nebulizers (Compact Compressor #1 ea 07/31/24 05/02/25 Unknown Nebulizer) Botox 200 unit injection See Rx Instructions IM .COMPLEX #1 09/18/24 05/13/25 Unknown (onabotulinumtoxinA) ea rosuvastatin 20 mg tablet 20 mg PO QAM #90 tabs 09/19/24 05/13/25 05/03/25 pantoprazole 40 mg tablet,delayed 40 mg PO BID #60 tabs 09/21/24 05/13/25 05/03/25 08:00 release trazodone 100 mg tablet 100 mg PO HS 10/03/24 05/13/25 05/02/25 pen needle, diabetic 32 gauge x #100 ea 10/23/24 05/02/25 Unknown 5/32" (BD Vy 2nd Gen Pen Needle) bumetanide 1 mg tablet 1 mg PO QAM #30 tabs 10/26/24 05/13/25 05/03/25 vitamin B complex (Vitamins B 1 cap PO QAM #30 caps 10/26/24 05/13/25 05/03/25 Complex capsule) lorazepam 0.5 mg tablet 0.5 mg PO DAILY PRN Seizure 11/23/24 05/13/25 Unknown Activity levetiracetam 1,000 mg tablet 1,000 mg PO Q12H #60 tabs 11/26/24 05/13/25 05/03/25 08:00 ferrous sulfate 325 mg (65 mg 325 mg PO Q OTHER DAY 11/27/24 05/13/25 05/02/25 iron) tablet desmopressin 0.2 mg tablet 0.4 mg (2 x 0.2 mg) PO BID #120 11/30/24 05/13/25 05/03/25 08:00 tabs metoprolol succinate 25 mg 25 mg PO HS #90 tabs 11/30/24 05/13/25 05/02/25 tablet,extended release 24 hr somatropin 5 mg/1.5 mL (3.3 mg/mL) 0.3 mg (0.09 mL) subcut QPM #2 11/30/24 05/13/25 05/02/25 subcutaneous pen injector syringes (Norditropin FlexPro) clopidogrel 75 mg tablet (Plavix) 75 mg PO QPM 12/03/24 05/13/25 05/02/25 lacosamide 150 mg tablet 150 mg PO BID #60 tabs 12/26/24 05/13/25 05/03/25 08:00 arformoterol 15 mcg/2 mL solution 2 ml inhalation BID 01/16/25 05/13/25 05/03/25 08:00 for nebulization (Brovana) oxybutynin chloride 5 mg 5 mg PO QAM 01/16/25 05/13/25 05/03/25 tablet,extended release 24 hr Oxygen Home 01/30/25 05/02/25 Unknown metformin 1,000 mg tablet 1,000 mg PO BID #180 tabs 02/26/25 05/13/25 05/03/25 08:00 rimegepant 75 mg disintegrating 75 mg PO DAILY PRN Migraine 02/28/25 05/13/25 Unknown tablet (Nurtec ODT) Headache #16 tabs magnesium oxide 400 mg (241.3 mg 400 mg PO DAILY 03/01/25 05/13/25 05/03/25 magnesium) tablet potassium chloride 10 mEq 10 meq PO QPM 03/01/25 05/13/25 05/02/25 tablet,extended release testosterone 2 pump topical PM #75 grams 03/18/25 05/13/25 05/02/25 nystatin 100,000 unit/gram topical 1 applic topical BID PRN Other 03/19/25 05/13/25 Unknown cream quetiapine 50 mg tablet,extended 50 mg PO QAM 03/19/25 05/13/25 05/03/25 release 24 hr venlafaxine 150 mg 150 mg PO QAM 03/19/25 05/13/25 05/03/25 capsule,extended release 24 hr formoterol fumarate 20 mcg/2 mL 20 mcg (2 mL) NEB BIDR #60 vials 03/24/25 05/13/25 05/03/25 08:00 solution for nebulization (Perforomist) acetylcysteine 200 mg/mL (20 %) 2 ml inhalation BID PRN Chest 03/26/25 05/13/25 Unknown solution congestion #100 mL cholecalciferol (vitamin D3) 50 50 mcg PO QPM #90 caps 03/26/25 05/13/25 05/02/25 mcg (2,000 unit) capsule propranolol 120 mg capsule,24 120 mg PO HS 03/26/25 05/13/25 05/02/25 hr,extended release sodium chloride 7 % for 1 inh inhalation BID #240 mL 03/26/25 05/13/25 05/03/25 08:00 nebulization tiotropium bromide 2.5 2 puff inhalation DAILY #4 grams 03/26/25 05/13/25 05/03/25 mcg/actuation mist for inhalation (Spiriva Respimat) apixaban 5 mg tablet (Eliquis) 5 mg PO Q12H #180 tabs 04/01/25 05/13/25 05/03/25 08:00 prazosin 5 mg capsule 5 mg PO HS 04/05/25 05/13/25 05/02/25 ramelteon 8 mg tablet 8 mg PO HS 04/05/25 05/13/25 05/02/25 venlafaxine 75 mg capsule,extended 75 mg PO QAM 04/05/25 05/13/25 05/03/25 release 24 hr duloxetine 30 mg capsule,delayed 30 mg PO HS #30 caps 04/12/25 05/13/25 05/02/25 release ondansetron 8 mg disintegrating 8 mg PO Q8H PRN nausea and 04/29/25 05/13/25 Unknown tablet vomiting #30 tabs phenazopyridine 200 mg tablet 200 mg PO TID #9 tabs 04/29/25 05/13/25 05/03/25 14:00 (Pyridium) aspirin 81 mg capsule 81 mg PO QPM 05/03/25 05/13/25 05/02/25 budesonide 0.5 mg/2 mL suspension 0.5 mg inhalation QPM 05/03/25 05/13/25 05/02/25 for nebulization divalproex 500 mg tablet,delayed 1,000 mg PO QAM 05/03/25 05/13/25 05/03/25 release duloxetine 60 mg capsule,delayed 60 mg PO QAM 05/03/25 05/13/25 05/03/25 release famotidine 20 mg tablet (Acid 20 mg PO QAM 05/03/25 05/13/25 05/03/25 Audiometric Technician (famotidine)) hydrocortisone 10 mg tablet 10 - 20 mg PO UD 05/03/25 05/13/25 Unknown lisinopril 40 mg tablet 40 mg PO QAM 05/03/25 05/13/25 05/03/25 oxycodone-acetaminophen 5 mg-325 1.5 tab PO Q6H PRN pain (scale 05/03/25 05/13/25 Unknown mg tablet (Percocet) score 7-10) tirzepatide 5 mg/0.5 mL 5 mg subcut WK 05/03/25 05/13/25 04/28/25 subcutaneous pen injector FreeStyle Rosalie 2 Sensor (flash #6 ea 05/06/25 Unknown glucose sensor) levothyroxine 150 mcg tablet 150 mcg PO DAILYBB #30 tabs 05/06/25 05/13/25 Unknown (Synthroid) Active Medications Generic Name Dose Route Start Last Admin Trade Name Freq PRN Reason Stop Dose Admin Apixaban 5 mg 05/13/25 21:00 05/13/25 21:35 Apixaban 5 Mg Tablet PO 06/12/25 20:59 5 mg Q12H OBDULIO Administration Budesonide 0.5 mg 05/13/25 21:00 05/14/25 07:03 Budesonide 0.5 Mg/2 Ml Vial (Pulmicort) INH 06/12/25 20:59 0.5 mg QPM OBDULIO Administration Desmopressin Acetate 0.4 mg 05/13/25 21:00 05/13/25 21:48 Desmopressin Acetate 0.1 Mg Tab PO 06/12/25 20:59 0.4 mg BID OBDULIO Administration Divalproex Sodium 1,000 mg 05/14/25 09:00 05/14/25 08:51 Divalproex Delay Release 500 Mg Tab PO 06/13/25 08:59 1,000 mg QAM OBDULIO Administration Duloxetine HCl 30 mg 05/13/25 21:00 05/13/25 21:48 Duloxetine Hcl 30 Mg Cap PO 06/12/25 20:59 30 mg HS OBDULIO Administration Formoterol Fumarate 20 mcg 05/14/25 07:00 05/14/25 07:03 Formoterol 20 Mcg/2 Ml Vial INH 06/13/25 06:59 20 mcg BIDR OBDULIO Administration Hydrocortisone 10 mg 05/13/25 21:15 05/13/25 21:49 Hydrocortisone 10 Mg Tab PO 06/12/25 21:14 10 mg HS OBDULIO Administration Sodium Chloride 1,000 mls @ 100 mls/hr 05/13/25 18:00 05/14/25 05:32 Nss IV 05/14/25 15:29 100 mls/hr .Q10H OBDULIO Administration Insulin Aspart 0 units 05/13/25 22:15 05/14/25 05:46 Insulin Aspart Per Unit Charge SC 06/12/25 22:14 Not Given Q6 OBDULIO Lacosamide 150 mg 05/13/25 21:00 05/14/25 08:51 Lacosamide 50 Mg Tablet PO 06/12/25 20:59 150 mg BID OBDULIO Administration Levetiracetam 1,000 mg 05/13/25 21:15 05/14/25 08:50 Levetiracetam 500 Mg Tab PO 06/12/25 21:14 1,000 mg BID OBDULIO Administration Levothyroxine Sodium 150 mcg 05/14/25 06:30 05/14/25 05:46 Levothyroxine Sodium 150 Mcg Tablet PO 06/13/25 06:29 150 mcg DAILYBB OBDULIO Administration [place] Carbonate 300 mg 05/13/25 21:00 05/13/25 21:49 [place] Carbonate 300 Mg Tab PO 06/12/25 20:59 300 mg AMHS OBDULIO Administration Metoprolol Succinate 25 mg 05/13/25 21:00 05/13/25 21:55 Metoprolol Succ 25mg Ext Rel Tab PO 06/12/25 20:59 25 mg HS OBDULIO Administration Mirtazapine 30 mg 05/13/25 21:00 05/13/25 21:51 Mirtazapine Tab 15 Mg Tab PO 06/12/25 20:59 30 mg HS OBDULIO Administration Morphine Sulfate 4 mg 05/13/25 20:33 05/14/25 07:53 Morphine Sulfate 4 Mg/Ml 1 Ml Carp\\Vial IV 05/27/25 20:32 4 mg Q4 PRN Administration Severe Pain (Scale 7, 8, 9,10) Oxycodone HCl 10 mg 05/13/25 20:33 05/13/25 23:10 Oxycodone Hcl Ir 5 Mg Tab (Immediate Release) PO 05/27/25 20:32 10 mg Q6H PRN Administration Moderate Pain 4-6/10 Pantoprazole Sodium 40 mg 05/13/25 21:00 05/13/25 21:48 Pantoprazole 40 Mg Tab PO 06/12/25 20:59 40 mg BID OBDULIO Administration Potassium Chloride 10 meq 05/13/25 21:00 05/13/25 21:35 Potassium Chloride 10 Meq Tabcr PO 06/12/25 20:59 10 meq QPM OBDULIO Administration Prazosin HCl 5 mg 05/13/25 21:00 05/13/25 21:48 Prazosin Hcl 1 Mg Cap PO 06/12/25 20:59 5 mg HS OBDULIO Administration Propranolol HCl 120 mg 05/13/25 21:00 05/13/25 21:56 Propranolol Hcl 60 Mg La Cap PO 06/12/25 20:59 120 mg HS OBDULIO Administration Trazodone HCl 100 mg 05/13/25 21:00 05/13/25 21:49 Trazodone Hcl 100 Mg Tab PO 06/12/25 20:59 100 mg HS OBDULIO Administration Vitamin D 50 mcg 05/13/25 21:00 05/13/25 21:35 Cholecalciferol 25 Mcg (1000 Units) Tab PO 06/12/25 20:59 50 mcg QPM OBDULIO Administration NPO Date Last Intake of Fluids: 05/13/25 Time Last Intake of Fluids: 23:00 Date Last Intake of Solids: 05/13/25 Time Last Intake of Solids: 23:00 Past Medical History Medical History History of pneumonia (03/2025) states has been admitted for total of 36 days ytd at [facility] for pneumonia, last was approxl 1 month ago Ocular hypertension Ulcerative colitis Mixed hyperlipidemia Lumbar stenosis with neurogenic claudication Idiopathic polyneuropathy Essential tremor Demyelinating disease Compartment syndrome of lower extremity (02/2025) per hx Chronic venous insufficiency Back pain at L4-L5 level Arthralgia Depression with anxiety Hx of fall (11/2024) History of dysphagia Hematuria On home O2 4 L nc History of recent hospitalization states has been in hospital 36 days this year so far with pneumonia- last was approx 1 month ago Sepsis Pyelonephritis Urinary tract obstruction due to kidney stone Lactic acidosis LPRD (laryngopharyngeal reflux disease) Severe obesity (BMI 35.0-35.9 with comorbidity) Uncontrolled type 2 diabetes mellitus with hyperglycemia Suspect low glycation index meaning his A1c is typically about 2 points lower than what his average glucose would suggest. Hypothyroidism Hypertension Non-occlusive coronary artery disease Acute dehydration hx Witnessed seizure-like activity Nonepileptic episode Chronic narcotic dependence COPD with exacerbation (03/2025) follows with dr. mccarthy (last seen while in hospital at [facility] with pneumonia ~) Anti-cyclic citrullinated peptide antibody positive Restrictive lung disease follows with dr. mccarthy, on O2 4L nc at all times Abnormal PFTs (pulmonary function tests) Bipolar disorder (10/11/22) Obstructive sleep apnea cpap 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 Follows with endocrinology- Secondary adrenal insufficiency Transient alteration of awareness Chronic adrenal insufficiency Leukocytosis Acute asthma exacerbation hx Acute on chronic hypoxic respiratory failure O2 4L nc Migraine Hematoma Growth hormone deficiency Diaphoresis hx Acute hypoxic respiratory failure hx Influenza A (12/2024) hx- Status epilepticus (09/13/24) Knee hemarthrosis, right (09/13/24) Acute on chronic anemia (09/13/24) Acute metabolic encephalopathy (09/13/24) hx Laceration of toe of right foot Closed fracture of right fibula with malunion Right fibular fracture hx Acute on chronic respiratory failure with hypoxia and hypercapnia Shortness of breath only if not wearing oxygen Chronic respiratory failure with hypoxia Obesity CKD (chronic kidney disease), stage III Peripheral edema Atrial fibrillation (02/15/24) no cardioversion- has loop recorder and watchmans device, follows with dr. kilgore (03/2025 while inpt.) Chronic low back pain Panhypopituitarism Lumbosacral radiculopathy Toxic encephalopathy Chest pain hx Acute dyspnea hx Acute CHF hx Hypoglycemia hx Syncope and collapse Reason for loop recorder No recent issues since bed bound from femur fracture in Sep 2022 per patient Internal hemorrhoids Recurrent seizures (05/01/25) goes sometimes months without seizures, then may may have 2 in one day- last seizure- 05/01/25- grand mal, lost control of bowel and bladder- informed neuro, dr. villa- told to stay on meds (last saw dr. villa on tu04/30/25) Pituitary diabetes insipidus Spondylolysis, lumbar region Right lumbar radiculopathy HTN (hypertension) Adrenal insufficiency Pituitary adenoma Hyperactive gag reflex BRCA gene positive tested positive in Aug 2023 [place] Family history of BRCA gene mutation PTSD (post-traumatic stress disorder) Epidural lipomatosis Chronic left sacroiliac pain Benzodiazepine overdose hx Presence of cardiac device Loop recorder > placed at [facility]- last checked fall 2023 Hx of fracture of foot Sep 2022- right > cast since removed > still gets painful Fracture of fibula, right, closed Cerebral concussion May 2023 during seizure > no further issues Orthostatic hypotension Sensorineural hearing loss of both ears Rectal bleeding on occasion History of COVID-19 10/2021 - fatigue; resolved. Mitral valve regurgitation follows with Dr. kilgore Vertigo Lower extremity edema Elevated LFTs Bilateral hand pain Pituitary neoplasm Dx'ed in 2001- s/p surgical resection and XRT Repeat surgery in 2018 secondary to tumor regrowth at [facility] Prostate mass benign Bladder mass benign Past Family History Family History Grandmother (Paternal) Family history of diabetes mellitus Aunt Family history of diabetes mellitus Uncle Family history of diabetes mellitus Father Prostate cancer Heart disease Osteoarthritis Mother Cardiac disorder Grandmother (Maternal) Myocardial infarction Other Asthma Cancer Hypertension No family history of adverse response to anesthesia No family history of bleeding disorder Stroke Denies family history of Ovarian cancer Breast cancer Colorectal cancer Past Surgical History Surgical History Presence of Watchman left atrial appendage closure device (02/2024) eric History of arthroplasty of left knee (2014) S/P TURP (status post transurethral resection of prostate) History of lumbar fusion (07/2022) [facility] Jul 2022 History of cardiac cath (07/2021) 07/2021 - no stents- no mi - [facility]- follows with dr. kilgore S/P epidural steroid injection History of lithotripsy Status post right foot surgery replaced 5th metatarsal--hardware in place History of bladder surgery remove mass History of prostate surgery (2017) remove mass- not malignant History of colonoscopy History of esophagogastroduodenoscopy (EGD) History of tooth extraction History of wisdom tooth extraction History of brain surgery x2---2004 @ [facility] [place], [facility] > caused epilepsy Social History Smoking Status: Never smoker tobacco type: smokeless tobacco Do You Dip or Chew Tobacco: Yes Hx Alcohol Use: No alcohol intake frequency: holidays/special occasions only Hx Substance Use: No substance use type: does not use Last Used Substance: Just Prior to Arrival Last Used Substance Other:: Unable to obtain due to patient condition. Physical Exam Vital Signs Last Vital Signs Temp 36.9 C 05/14/25 08:23 Pulse 66 05/14/25 08:23 Resp 20 05/14/25 08:23 BP 192/93 H 05/14/25 08:23 Pulse Ox 95 05/14/25 08:23 O2 Del Method Nasal Cannula 05/14/25 08:32 O2 Flow Rate 2 05/14/25 08:32 Testing Laboratory Results 05/14/25 05:52 05/14/25 05:52 Urine Color Red 05/13/25 13:42 Urine Appearance Cloudy (Clear) A 05/13/25 13:42 Urine pH 6.0 (4.5-7.5) 05/13/25 13:42 Ur Specific [place] 1.013 (1.000-1.030) 05/13/25 13:42 Urine Protein 2+ (Negative) H 05/13/25 13:42 Urine Glucose (UA) Negative (Negative) 05/13/25 13:42 Urine Ketones Negative (Negative) 05/13/25 13:42 Urine Nitrite Negative (Negative) 05/13/25 13:42 Ur Leukocyte Esterase 3+ (Negative) H 05/13/25 13:42 Urine WBC (Auto) 21-50 /hpf (0-5) H 05/13/25 13:42 Urine RBC (Auto) >20 /hpf (0-2) H 05/13/25 13:42 U Hyaline Cast (Auto) 0-2 /lpf (0-2) 05/13/25 13:42 U Epithel Cells (Auto) 3-5 /hpf (0-2) H 05/13/25 13:42 Urine Bacteria (Auto) None Seen (None Seen) 05/13/25 13:42 05/14/25 05/14/25 08:20 05:45 POC Glucose 94 91
[2025-05-14] MEDS ORDERED: HYDROmorphone INJ 2 MG/ML SYR/VIAL IV PRN (09:24)
[2025-05-14] MEDS ORDERED: ePHEDrine sulfate 50 MG/ML AMP IV PRN (09:24)
[2025-05-14] MEDS ORDERED: ONDANSETRON INJ 2 MG/ML 2 ML VIAL IV PRN (09:24)
[2025-05-14] MEDS ORDERED: fentaNYL citrate PF 100 MCG/2 ML VIAL IV PRN (09:24)
[2025-05-14] MEDS ORDERED: ATROPINE SULFATE 0.1 MG/ML 10ML SYR IV PRN (09:24)
[2025-05-14] MEDS ORDERED: PROMETHAZINE HCL 6.25 MG in SODIUM CHLORIDE 0.9% 50 ML IV PRN (09:24)
[2025-05-14] MEDS: DIATRIZOATE MEGLUMINE 30% 100ML VIAL INSTIL ONE (10:07)
--- NOTE | 2025-05-14 10:18 | Operative Report ---
PG Post Operative Report Pre & Post Diagnosis Operation Date: 05/14/25 09:40 Pre-Op Diagnosis: Acute flank pain Post-Op Diagnosis: Acute flank pain I identified the patient and participated in the time-out.: Yes Procedure Operation Date: 05/14/25 09:40 Actual Procedures p Cystoscopy Bilateral Stent Removal(Bilateral) - Glynn King MD Surgeon Glynn King MD Director Data none Estimated Blood Loss 0 Findings Consistent with Post-Op Diagnosis Specimens none Description of Procedure The patient was identified in the preoperative holding area, appropriate informed consents were reviewed and completed and the patient was transferred to the operative suite. Upon arrival, appropriate antibiotics and anesthesia were administered and the patient was placed in dorsal lithotomy position and prepped and draped in sterile fashion. To be the case to pass a 21 Dutch cystoscope with 30 degree lens. Inspection revealed a healthy appearing urethra and prostate. There was some blood within the bladder and I was able to irrigate this out of the bladder to begin my hand evaluation. Stents were identified protruding from both orifices. They were in excellent position. I grasped the distal aspect of the left stent withdrew to the meatus. I intubated with a sensor wire and the wire advanced to the kidney. I used a 10 Dutch double-lumen catheter placed into the mid ureter to introduce contrast and evaluate the system. Left retrograde pyelogram: I, mild dilation of the renal pelvis with sharp calyces, no filling defects appreciated. No dilation of the ureter. I subsequently removed the left wire and 10 Dutch double-lumen the left him stent free on the left. I then reentered the bladder and grasped the distal aspect of the right stent and withdrew it to the meatus. I used a wire and a 10 Dutch double-lumen catheter to allow retrograde pyelogram. Right retrograde pyelogram: There was mild dilation of the renal pelvis, slightly greater than the left side, however no large filling defects or other abnormalities appreciated. The ureter was not dilated and I elected to withdraw the wire and a 10 Dutch double-lumen catheter. I then rinsed out his bladder 1 final time and concluded the case. I attest to the content of the Intraoperative Record and any orders documented therein. Any exceptions are noted below.
[2025-05-14] MEDS: ARIPiprazole 5 MG TAB PO SCH (10:52)
[2025-05-14] MEDS: HYDROCORTISONE 10 MG TAB PO SCH (10:53)
[2025-05-14] MEDS: VENLAFAXINE HCL XR 150 MG CAPXR PO SCH (10:53)
[2025-05-14] MEDS: OXYBUTYNIN CHLORIDE XL 5 MG TABCR PO SCH (10:53)
[2025-05-14] MEDS: MAGNESIUM OXIDE 400 MG TAB PO SCH (10:53)
[2025-05-14] MEDS: VENLAFAXINE HCL XR 75 MG CAPXR PO SCH (10:54)
[2025-05-14] MEDS: lisinopril 40 MG TAB PO SCH (10:54)
[2025-05-14] MEDS: VITAMIN B COMPLEX TAB PO SCH (10:54)
[2025-05-14] MEDS: QUEtiapine FUMARATE 50 MG TABCR PO SCH (10:55)
[2025-05-14] MEDS: TAMSULOSIN HCL 0.4 MG CAP PO SCH (10:55)
[2025-05-14] MEDS: FERROUS SULFATE 325 MG TAB PO SCH (10:55)
[2025-05-14] MEDS: DULoxetine HCL 60 MG CAP PO SCH (10:55)
[2025-05-14] MEDS: UMECLIDINIUM BROMIDE 62.5MCG/BLISTER 7 PUFFS/INHALER INH SCH (10:56)
[2025-05-14] MEDS: BUMETANIDE 1 MG TAB PO SCH (11:00)
[2025-05-14] MEDS: FAMOTIDINE 20 MG TAB PO SCH (11:00)
--- NOTE | 2025-05-14 11:11 | Fluoroscopy Report ---
FL retrograde includes kub CLINICAL HISTORY: B/L RETROGRADES COMPARISON STUDY: None FLUOROSCOPY TIME: 16 FLUOROSCOPY IMAGES: 6 EXPOSURE DOSE: 8 mGy FINDINGS: Fluoroscopy was provided for urologic procedure. IMPRESSION: Intraoperative fluoroscopy. ACT 112: Negative or not required by law. Electronically signed by: Keon Crump M.D. 05/14/2025 11:10 AM
--- NOTE | 2025-05-14 12:12 | Anesthesiology Progress Note ---
Date of Service May 14, 2025 Anesthesia Post Procedure Vital Signs Vital Signs: Temp Pulse Pulse Resp BP BP Pulse Ox 05/14/25 11:15 36.6 C 65 17 167/88 H 99 05/14/25 10:25 69 12 154/86 H 95 05/14/25 10:18 36 C L 70 12 174/97 H 92 05/14/25 09:34 68 05/14/25 08:32 05/14/25 08:23 36.9 C 66 20 192/93 H 95 05/14/25 07:07 36.6 C 66 17 150/81 H 98 05/14/25 07:05 68 18 98 05/14/25 03:10 36.6 C 66 18 132/87 96 05/13/25 23:07 36.7 C 74 18 157/95 H 96 05/13/25 21:58 73 05/13/25 21:52 73 166/96 H 05/13/25 21:23 71 18 97 05/13/25 20:57 05/13/25 20:33 36.6 C 76 18 169/96 H 98 05/13/25 20:33 05/13/25 20:29 69 05/13/25 20:24 05/13/25 20:03 74 16 95 05/13/25 20:00 174/100 H 05/13/25 19:45 67 23 96 05/13/25 19:03 70 22 96 05/13/25 19:00 165/106 H 05/13/25 19:00 165/106 H 05/13/25 19:00 165/106 H 05/13/25 19:00 165/106 H 05/13/25 18:42 92 H 20 98 05/13/25 18:12 76 12 96 05/13/25 18:08 69 05/13/25 17:15 75 17 98 05/13/25 16:12 130/87 05/13/25 16:12 76 18 130/87 97 05/13/25 16:06 77 12 98 05/13/25 15:03 83 17 98 05/13/25 14:17 87 20 166/82 H 96 05/13/25 14:06 89 94 05/13/25 14:05 166/95 H 05/13/25 14:03 88 96 05/13/25 13:45 93 H 20 97 05/13/25 13:34 96 05/13/25 13:33 99 H 05/13/25 13:30 150/89 H 05/13/25 13:30 150/89 H 05/13/25 13:24 97 H 18 95 05/13/25 13:24 37 C 97 H 12 150/89 H 96 05/13/25 13:22 113/78 05/13/25 13:22 113/78 05/13/25 13:22 113/78 Pulse Ox O2 Del Method O2 Del Method O2 Flow Rate O2 Flow Rate 05/14/25 11:15 Nasal Cannula 2 05/14/25 10:25 Nasal Cannula 2 05/14/25 10:18 Nasal Cannula 2 05/14/25 09:34 05/14/25 08:32 Nasal Cannula 2 05/14/25 08:23 Nasal Cannula 2 05/14/25 07:07 Nasal Cannula 2 05/14/25 07:05 Nasal Cannula 2 05/14/25 03:10 Nasal Cannula 2 05/13/25 23:07 Nasal Cannula 2 05/13/25 21:58 05/13/25 21:52 05/13/25 21:23 Nasal Cannula 2 05/13/25 20:57 Nasal Cannula 2 05/13/25 20:33 Nasal Cannula 2 05/13/25 20:33 98 Nasal Cannula 2 05/13/25 20:29 05/13/25 20:24 Nasal Cannula 2 05/13/25 20:03 05/13/25 20:00 05/13/25 19:45 05/13/25 19:03 05/13/25 19:00 05/13/25 19:00 05/13/25 19:00 05/13/25 19:00 05/13/25 18:42 05/13/25 18:12 05/13/25 18:08 05/13/25 17:15 05/13/25 16:12 05/13/25 16:12 Room Air 05/13/25 16:06 05/13/25 15:03 05/13/25 14:17 Nasal Cannula 2 05/13/25 14:06 05/13/25 14:05 05/13/25 14:03 Nasal Cannula 2 05/13/25 13:45 05/13/25 13:34 Nasal Cannula 2 05/13/25 13:33 05/13/25 13:30 05/13/25 13:30 05/13/25 13:24 05/13/25 13:24 Nasal Cannula 2 05/13/25 13:22 05/13/25 13:22 05/13/25 13:22 Pain Intensity Bilateral Flank: Pain Intensity: 9 Pelvic: Pain Intensity: 7 Transfer of Care Handoff Completed per policy Notes Mental Status: alert / awake / arousable and participated in evaluation Patient Amnestic to Procedure: Yes Nausea / Vomiting: adequately controlled Pain: adequately controlled Airway Patency, RR, SpO2: stable & adequate BP & HR: stable & adequate Hydration State: stable & adequate Anesthetic Complications: no major complications apparent
[2025-05-14] MEDS: INSULIN ASPART PER UNIT CHARGE SC SCH (12:26)
[2025-05-14] MEDS ORDERED: LORazepam 2 MG/1 ML VIAL IV PRN (12:34)
--- NOTE | 2025-05-14 13:45 | Hospitalist Progress Note ---
Date of Service May 14, 2025 Assessment & Plan (1) Kidney stones: (2) Panhypopituitarism: (3) Atrial fibrillation: (4) Psychogenic nonepileptic seizure: (5) Diabetes: (6) Bipolar 1 disorder: Plan 54-year-old male Re presents after 1 day discharge with abdominal pain with recent ureteral stent placement. Patient reportedly had seizure-like activity en route and has a history of pending MARY KAY. He was given 6 mg of Versed. Upon awakening after the Versed he continues have significant intractable pain #Abdominal pain/renal colic Etiology of his pain could be his bilateral ueretraal stents He is now s/p Cystoscopy and Bilateral Stent Removal Says he feels better Stll has some dysuria and blood in urine Appreciate urology continue pain mgt #Panhypopituitary, typically sees Dr. Voss Takes desmopressin 0.4 p.o. twice daily Adrenal insufficiency treated with hydrocortisone 20 mg in the morning 10 mg at 2 PM Acquired hypothyroidism with levothyroxine 150 mcg a day Hypogonadism treated with testosterone to 20.25 mg / 1.25 g gel 2 pumps topically every afternoon #Atrial fibrillation patient reportedly had a Watchman procedure January 2024 remains on Toprol XL (also on propranolol for tremor) for rate control and Eliquis therapy, its unclear if this was restarted after watchman, . Is on dual antiplatelet therapy that was held for cystoscopy. COPD At baseline continue duonebs scheuled and prn #Diabetes patient is on metformin, glargine and monjouro. 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 Mention the patient is on Botox and Nurtec #Bipolar disorder continues on Abilify lithium mirtazapine prazosin and propranolol Effexor trazodone typically followed by Dr. Berry we will check a lithium level #Chronic low back pain typically taken duloxetine DVT prevention is Eliquis therapy Admission and Anticipated Discharge Date Admission Date: May 13, 2025 Subjective patient seen and examined, still has some hematuria, came back from stent removal, says his pain is better Review of Systems Review of Systems: All systems reviewed are negative, apart from the ones contained in the history. Physical Exam Physical Exam: The patient is awake, alert and oriented 3, well developed and well nourished, normocephalic and atraumatic, lying in bed and in no acute distress. HEENT--PERRL, EOMI, mucous membranes and oropharynx mildly dry Neck--supple. No JVD. No bruits. Thyroid normal, trachea midline, no adenopathy. Heart--normal S1 and S2. No murmurs, rubs or gallops. Lungs--clear bilaterally, no respiratory distress, no accessory muscle use. Abdomen--normal bowel sounds and soft. Extremities--no cyanosis or clubbing. No edema. Dermatologic--normal skin turgor, normal color, no abnormal lymph nodes, no rash. Neurologic--cranial nerves II through XII grossly intact. Rheumatologic--normal range of motion. Psychiatric--normal affect. Results & Data Results & Data Vital Signs (Past 12 Hours) Vital Signs Temp Pulse Pulse Resp BP Pulse Ox O2 Del Method 05/14/25 11:15 97.9 F 65 17 167/88 H 99 Nasal Cannula 05/14/25 10:25 69 12 154/86 H 95 Nasal Cannula 05/14/25 10:18 96.8 F L 70 12 174/97 H 92 Nasal Cannula 05/14/25 09:34 68 05/14/25 08:32 Nasal Cannula 05/14/25 08:23 98.4 F 66 20 192/93 H 95 Nasal Cannula 05/14/25 07:07 97.9 F 66 17 150/81 H 98 Nasal Cannula 05/14/25 07:05 68 18 98 Nasal Cannula 05/14/25 03:10 97.9 F 66 18 132/87 96 Nasal Cannula O2 Flow Rate 05/14/25 11:15 2 05/14/25 10:25 2 05/14/25 10:18 2 05/14/25 09:34 05/14/25 08:32 2 05/14/25 08:23 2 05/14/25 07:07 2 05/14/25 07:05 2 05/14/25 03:10 2 PG Care Time/CCT Total # of Minutes Spent Total Time Spent with Patient: Total time spent is greater than 50% in coordination of care (as documented) at patient's floor/unit and/or counseling patient: Coding Level of Care Code 07789 SUB INP/OBS CARE 235MIN Diagnoses Kidney stones N20.0 Panhypopituitarism E23.0 Atrial fibrillation I48.91 Atrial fibrillation type: unspecified Psychogenic nonepileptic seizure F44.5 Diabetes E11.9 Bipolar 1 disorder F31.9 Time Spent (min) 35 (3) Atrial fibrillation Atrial fibrillation type: unspecified Qualified Code(s): I48.91 - Unspecified atrial fibrillation
[2025-05-14] MEDS: cefTRIAXone SODIUM 2,000 MG/50 ML BAG IV SCH (15:39)
[2025-05-14] MEDS ORDERED: INSULIN ASPART PER UNIT CHARGE SC SCH (19:00)
[2025-05-14] MEDS: ONDANSETRON INJ 2 MG/ML 2 ML VIAL IV PRN (19:45)
[2025-05-14] MEDS: LANTUS PER UNIT CHARGE SC SCH (20:50)
[2025-05-15 07:00] LABS: Hematocrit (blood only) 25.7 % (42.0-52.0); Hemoglobin 8.4 g/dl (14.0-18.0); Mean Corpuscular Hemoglobin 28.3 pg (25.0-34.0); Mean Corpuscular Hgb Conc 32.7 g/dL (32.0-36.0); Mean Corpuscular Volume 86.5 fL (80.0-100.0); Mean Platelet Volume 8.5 fL (9.4-12.4); Platelet Count 194 K/uL (130-400); RDW Coefficient of Variation 13.6 % (11.5-14.5); RDW Standard Deviation 42.6 fL (36.4-46.3); Red Blood Count 2.97 M/uL (4.70-6.10)
[2025-05-15 07:19] LABS: BUN Creatinine Ratio 7.6 (10-20); Calcium 8.5 mg/dl (8.6-10.3)
--- NOTE | 2025-05-15 10:50 | Palliative Care Consultation ---
Date of Consultation May 15, 2025 Assessment & Plan (1) Abdominal pain: Increase to OxyIR to 15mg PO q6h prn/Hold for somnolence or RR less than 14; please document RR with each dose administration. At prior clinic visit, we began a trial of Percocet 5/325mg po q6h prn along with bowel regimen of Senna-S 1-2 tabs BID Abdominal location: unspecified location Qualified Code(s): R10.9 - Unspecified abdominal pain (2) Generalized pain: (3) Lumbar stenosis with neurogenic claudication: Chronic pain from a broken back which was an injury from 4 yr ago - had surgery has a seizure disorder feels dizzy a lot, +blackouts x few minutes 38 broken bones to dates d/t martial arts, sports - states he is supposed to have kidney stone surgery, another brain tumor surgery near pituitary gland (managed by Eric) and an ankle surgery very severe chronic pain "all the time", all over body but worst in back at L4/5 to S1 region where he was injured. Significant pain knees, ankles, shoulders (4) Advanced care planning/counseling discussion: A face to face ACP meeting was held with Waldo and at bedside for 20min - He states he is a DNR/DNI. he has completed AD paperwork attesting to this but it is not on file with [facility]. he states last night around 930pm "a natalee with pointy shoes came in to my room to talk about being a DNR and made me sign some pink form." Of note, this presumed POLST cannot be located on the unit -he states he was very upset they did CPR during recent admission and placed him on a vent. I reviewed his hospital chart - in d/w teams he had elected full code. he states he cannot recall those discussions. - I have requested to bring a copy of advanced directive at next visit for inclusion in medical records - he is DNR/DNI, order written - he tells me his suffering seems to be growing. He has more thoughts of "just stopping everything, all the meds all the procedures and just letting nature take its course." has had conversations about this with his , she is supportive. he shares a private home with her, 1 small dog, her 2 adult children (ages 21 and 18yo) and the 21yo son's girlfriend. Her daughter and son's girlfriend do not work. None of them contribute to household. They do not drive, do not assist patient with his needs, do not transport him to medical appointments. - he is frustrated by recent back and forth admissions, complications and increased pain/colic/now with puentes. Feels much of this has been demoralizing and he feels defeated in the sense of "nothing is working, is this worthwhile anymore?" We discussed the importance to not make major decisions while acutely ill, and agreed to follow up in clinic within 2-3 weeks of dc (5) Palliative care by specialist: Introduced Palliative Medicine and explained our role in patient's care. Patient and/or family were receptive to palliative services for goals of care discussions. Reviewed we are different from hospice, a home health nurse visiting service. (6) Back pain at L4-L5 level: (7) Acute flank pain: Plan As above History of Present Illness Reason for Consultation: goals of care Attending Physician: Stas Bartlett MD History of Present Illness Admitted with colic following stent removal Known to us from outpatient pall med clinic, last seen 04/18/25 (this was initial visit) has been back and forth with admissions for past 4-5 weeks feeling increased pain [address], +bloody urine with clots increased abd and back pain appetite ok had a seizure en route to hospital this time states 'some natalee in pointy shoes came in last night at like 930pm to talk to me about my DNR, he had me sign some pink form." Chronic pain from a broken back which was an injury from 4 yr ago - had surgery has a seizure disorder feels dizzy a lot, +blackouts x few minutes 38 broken bones to dates d/t martial arts, sports states he is supposed to have kidney stone surgery, another brain tumor surgery near pituitary gland (managed by Eric) and an ankle surgery very severe chronic pain "all the time", all over body but worst in back at L4/5 to S1 region where he was injured. Significant pain knees, ankles, shoulders He is followed closely by outpatient care mgt, Paula Vilchis. Allergies Allergy/AdvReac Type Severity Reaction Status Date / Time clindamycin Allergy Intermediate SWELLING Verified 05/14/25 08:22 Iodinated Contrast Media Allergy Intermediate face/eye Verified 05/14/25 08:22 swelling Quinolones Allergy Intermediate HIVES Verified 05/14/25 08:22 tomato AdvReac Unknown swelling Verified 05/14/25 08:22 Home Medications Medication Instructions Recorded Confirmed Type lithium carbonate 300 mg tablet 300 mg PO AMHS 06/04/22 05/13/25 History mirtazapine 30 mg tablet (Remeron) 30 mg PO HS 06/23/22 05/13/25 History fluticasone propionate 50 1 spray intranasal HS PRN allergy 03/16/23 05/13/25 Rx mcg/actuation nasal symptoms #16 grams spray,suspension (Flonase Allergy Relief) FreeStyle Rosalie 2 [place] (flash #1 ea 05/13/23 05/02/25 Rx glucose scanning reader) blood sugar diagnostic (AppscendTouch #150 ea 11/22/23 05/02/25 Rx Verio test strips) blood-glucose meter (AppscendTouch #1 ea 11/22/23 05/02/25 Rx Verio Reflect Meter) insulin syringe-needle U-100 1 mL #300 ea 11/22/23 05/02/25 Rx 30 gauge x 1/2" (BD Insulin Syringe Ultra-Fine) lancets 33 gauge (OneTouch Delica #150 ea 11/22/23 05/02/25 Rx Plus Lancet) albuterol sulfate 90 mcg/actuation 2 inh inhalation Q6H PRN shortness 02/24/24 05/13/25 Rx aerosol inhaler (Ventolin HFA) of breath or wheezing #6.7 grams dutasteride 0.5 mg capsule 0.5 mg PO QAM 04/06/24 05/13/25 History glucagon 3 mg/actuation nasal 3 mg intranasal ONCE PRN Severe 04/06/24 05/13/25 History spray (Baqsimi) Hypoglycemia aripiprazole 5 mg tablet 5 mg PO QAM 05/29/24 05/13/25 History insulin glargine 100 unit/mL (3 12 unit subcut HS 07/19/24 05/13/25 History mL) subcutaneous pen (Lantus Solostar U-100 Insulin) ipratropium 0.5 mg-albuterol 3 mg 3 ml inhalation QID PRN wheezing 07/31/24 05/13/25 Rx (2.5 mg base)/3 mL nebulization #90 mL soln nebulizers (Compact Compressor #1 ea 07/31/24 05/02/25 Rx Nebulizer) Botox 200 unit injection See Rx Instructions IM .COMPLEX #1 09/18/24 05/13/25 Rx (onabotulinumtoxinA) ea rosuvastatin 20 mg tablet 20 mg PO QAM #90 tabs 09/19/24 05/13/25 Rx pantoprazole 40 mg tablet,delayed 40 mg PO BID #60 tabs 09/21/24 05/13/25 Rx release trazodone 100 mg tablet 100 mg PO HS 10/03/24 05/13/25 History pen needle, diabetic 32 gauge x #100 ea 10/23/24 05/02/25 Rx " (BD Vy 2nd Gen Pen Needle) bumetanide 1 mg tablet 1 mg PO QAM #30 tabs 10/26/24 05/13/25 Rx vitamin B complex (Vitamins B 1 cap PO QAM #30 caps 10/26/24 05/13/25 Rx Complex capsule) lorazepam 0.5 mg tablet 0.5 mg PO DAILY PRN Seizure 11/23/24 05/13/25 History Activity levetiracetam 1,000 mg tablet 1,000 mg PO Q12H #60 tabs 11/26/24 05/13/25 Rx ferrous sulfate 325 mg (65 mg 325 mg PO Q OTHER DAY 11/27/24 05/13/25 History iron) tablet desmopressin 0.2 mg tablet 0.4 mg (2 x 0.2 mg) PO BID #120 11/30/24 05/13/25 Rx tabs metoprolol succinate 25 mg 25 mg PO HS #90 tabs 11/30/24 05/13/25 Rx tablet,extended release 24 hr somatropin 5 mg/1.5 mL (3.3 mg/mL) 0.3 mg (0.09 mL) subcut QPM #2 11/30/24 05/13/25 Rx subcutaneous pen injector syringes (Norditropin FlexPro) clopidogrel 75 mg tablet (Plavix) 75 mg PO QPM 12/03/24 05/13/25 History lacosamide 150 mg tablet 150 mg PO BID #60 tabs 12/26/24 05/13/25 Rx arformoterol 15 mcg/2 mL solution 2 ml inhalation BID 01/16/25 05/13/25 History for nebulization (Brovana) oxybutynin chloride 5 mg 5 mg PO QAM 01/16/25 05/13/25 History tablet,extended release 24 hr Oxygen Home 01/30/25 05/02/25 History metformin 1,000 mg tablet 1,000 mg PO BID #180 tabs 02/26/25 05/13/25 Rx rimegepant 75 mg disintegrating 75 mg PO DAILY PRN Migraine 02/28/25 05/13/25 Rx tablet (Nurtec ODT) Headache #16 tabs magnesium oxide 400 mg (241.3 mg 400 mg PO DAILY 03/01/25 05/13/25 History magnesium) tablet potassium chloride 10 mEq 10 meq PO QPM 03/01/25 05/13/25 History tablet,extended release testosterone 2 pump topical PM #75 grams 03/18/25 05/13/25 Rx nystatin 100,000 unit/gram topical 1 applic topical BID PRN Other 03/19/25 05/13/25 History cream quetiapine 50 mg tablet,extended 50 mg PO QAM 03/19/25 05/13/25 History release 24 hr venlafaxine 150 mg 150 mg PO QAM 03/19/25 05/13/25 History capsule,extended release 24 hr formoterol fumarate 20 mcg/2 mL 20 mcg (2 mL) NEB BIDR #60 vials 03/24/25 05/13/25 Rx solution for nebulization (Perforomist) acetylcysteine 200 mg/mL (20 %) 2 ml inhalation BID PRN Chest 03/26/25 05/13/25 Rx solution congestion #100 mL cholecalciferol (vitamin D3) 50 50 mcg PO QPM #90 caps 03/26/25 05/13/25 Rx mcg (2,000 unit) capsule propranolol 120 mg capsule,24 120 mg PO HS 03/26/25 05/13/25 History hr,extended release sodium chloride 7 % for 1 inh inhalation BID #240 mL 03/26/25 05/13/25 Rx nebulization tiotropium bromide 2.5 2 puff inhalation DAILY #4 grams 03/26/25 05/13/25 Rx mcg/actuation mist for inhalation (Spiriva Respimat) apixaban 5 mg tablet (Eliquis) 5 mg PO Q12H #180 tabs 04/01/25 05/13/25 Rx prazosin 5 mg capsule 5 mg PO HS 04/05/25 05/13/25 History ramelteon 8 mg tablet 8 mg PO HS 04/05/25 05/13/25 History venlafaxine 75 mg capsule,extended 75 mg PO QAM 04/05/25 05/13/25 History release 24 hr duloxetine 30 mg capsule,delayed 30 mg PO HS #30 caps 04/12/25 05/13/25 Rx release ondansetron 8 mg disintegrating 8 mg PO Q8H PRN nausea and 04/29/25 05/13/25 Rx tablet vomiting #30 tabs phenazopyridine 200 mg tablet 200 mg PO TID #9 tabs 04/29/25 05/13/25 Rx (Pyridium) aspirin 81 mg capsule 81 mg PO QPM 05/03/25 05/13/25 History budesonide 0.5 mg/2 mL suspension 0.5 mg inhalation QPM 05/03/25 05/13/25 History for nebulization divalproex 500 mg tablet,delayed 1,000 mg PO QAM 05/03/25 05/13/25 History release duloxetine 60 mg capsule,delayed 60 mg PO QAM 05/03/25 05/13/25 History release famotidine 20 mg tablet (Acid 20 mg PO QAM 05/03/25 05/13/25 History Refrigerator Car Icer (famotidine)) hydrocortisone 10 mg tablet 10 - 20 mg PO UD 05/03/25 05/13/25 History lisinopril 40 mg tablet 40 mg PO QAM 05/03/25 05/13/25 History oxycodone-acetaminophen 5 mg-325 1.5 tab PO Q6H PRN pain (scale 05/03/25 05/13/25 History mg tablet (Percocet) score 7-10) tirzepatide 5 mg/0.5 mL 5 mg subcut WK 05/03/25 05/13/25 History subcutaneous pen injector FreeStyle Rosalie 2 Sensor (flash #6 ea 05/06/25 Rx glucose sensor) levothyroxine 150 mcg tablet 150 mcg PO DAILYBB #30 tabs 05/06/25 05/13/25 Rx (Synthroid) Patient History Medical History History of pneumonia (03/2025) states has been admitted for total of 36 days ytd at [facility] for pneumonia, last was approxl 1 month ago Ocular hypertension Ulcerative colitis Mixed hyperlipidemia Lumbar stenosis with neurogenic claudication Idiopathic polyneuropathy Essential tremor Demyelinating disease Compartment syndrome of lower extremity (02/2025) per hx Chronic venous insufficiency Back pain at L4-L5 level Arthralgia Depression with anxiety Hx of fall (11/2024) History of dysphagia Hematuria On home O2 4 L nc History of recent hospitalization states has been in hospital 36 days this year so far with pneumonia- last was approx 1 month ago Sepsis Pyelonephritis Urinary tract obstruction due to kidney stone Lactic acidosis LPRD (laryngopharyngeal reflux disease) Severe obesity (BMI 35.0-35.9 with comorbidity) Uncontrolled type 2 diabetes mellitus with hyperglycemia Suspect low glycation index meaning his A1c is typically about 2 points lower than what his average glucose would suggest. Hypothyroidism Hypertension Non-occlusive coronary artery disease Acute dehydration hx Witnessed seizure-like activity Nonepileptic episode Chronic narcotic dependence COPD with exacerbation (03/2025) follows with dr. mccarthy (last seen while in hospital at [facility] with pneumonia ~) Anti-cyclic citrullinated peptide antibody positive Restrictive lung disease follows with dr. mccarthy, on O2 4L nc at all times Abnormal PFTs (pulmonary function tests) Bipolar disorder (10/11/22) Obstructive sleep apnea cpap 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 Follows with endocrinology- Secondary adrenal insufficiency Transient alteration of awareness Chronic adrenal insufficiency Leukocytosis Acute asthma exacerbation hx Acute on chronic hypoxic respiratory failure O2 4L nc Migraine Hematoma Growth hormone deficiency Diaphoresis hx Acute hypoxic respiratory failure hx Influenza A (12/2024) hx- Status epilepticus (09/13/24) Knee hemarthrosis, right (09/13/24) Acute on chronic anemia (09/13/24) Acute metabolic encephalopathy (09/13/24) hx Laceration of toe of right foot Closed fracture of right fibula with malunion Right fibular fracture hx Acute on chronic respiratory failure with hypoxia and hypercapnia Shortness of breath only if not wearing oxygen Chronic respiratory failure with hypoxia Obesity CKD (chronic kidney disease), stage III Peripheral edema Atrial fibrillation (03/27/24) no cardioversion- has loop recorder and watchmans device, follows with dr. kilgore (03/2025 while inpt.) Chronic low back pain Panhypopituitarism Lumbosacral radiculopathy Toxic encephalopathy Chest pain hx Acute dyspnea hx Acute CHF hx Hypoglycemia hx Syncope and collapse Reason for loop recorder No recent issues since bed bound from femur fracture in Sep 2022 per patient Internal hemorrhoids Recurrent seizures (05/01/25) goes sometimes months without seizures, then may may have 2 in one day- last seizure- 05/01/25- grand mal, lost control of bowel and bladder- informed neuro, dr. villa- told to stay on meds (last saw dr. villa on tu04/30/25) Pituitary diabetes insipidus Spondylolysis, lumbar region Right lumbar radiculopathy HTN (hypertension) Adrenal insufficiency Pituitary adenoma Hyperactive gag reflex BRCA gene positive tested positive in Aug 2023 [place] Family history of BRCA gene mutation PTSD (post-traumatic stress disorder) Epidural lipomatosis Chronic left sacroiliac pain Benzodiazepine overdose hx Presence of cardiac device Loop recorder > placed at [facility]- last checked fall 2023 Hx of fracture of foot Sep 2022- right > cast since removed > still gets painful Fracture of fibula, right, closed Cerebral concussion May 2023 during seizure > no further issues Orthostatic hypotension Sensorineural hearing loss of both ears Rectal bleeding on occasion History of COVID-19 10/2021 - fatigue; resolved. Mitral valve regurgitation follows with Dr. kilgore Vertigo Lower extremity edema Elevated LFTs Bilateral hand pain Pituitary neoplasm Dx'ed in 2001- s/p surgical resection and XRT Repeat surgery in 2018 secondary to tumor regrowth at [facility] Prostate mass benign Bladder mass benign Surgical History Presence of Watchman left atrial appendage closure device (02/2024) eric History of arthroplasty of left knee (2014) S/P TURP (status post transurethral resection of prostate) [place] of [place] [facility] [place] History of cardiac cath (07/2021) 07/2021 - no stents- no wv - [facility]- follows with dr. kilgore S/P epidural steroid injection History of lithotripsy Status post right foot surgery replaced 5th metatarsal--hardware in place History of bladder surgery remove mass History of prostate surgery (2017) remove mass- not malignant History of colonoscopy History of esophagogastroduodenoscopy (EGD) History of tooth extraction History of wisdom tooth extraction History of brain surgery x2---2004 @ [facility] [place], 2018 @ [facility]--for brain tumors > caused epilepsy Family History Grandmother (Paternal) Family history of diabetes mellitus Aunt Family history of diabetes mellitus Uncle Family history of diabetes mellitus Father Prostate cancer Heart disease Osteoarthritis Mother Cardiac disorder Grandmother (Maternal) Myocardial infarction Other Asthma Cancer Hypertension No family history of adverse response to anesthesia No family history of bleeding disorder Stroke Denies family history of Ovarian cancer Breast cancer Colorectal cancer Social History Smoking Status: Never smoker Tobacco Type: Smokeless Tobacco (Dip or Chew) Second Hand Exposure: No; Do You Dip or Chew Tobacco: Yes; Hx Alcohol Use: No Hx Substance Use: No Preferred Language: Romansh Communication Ability: Effective Communication Ability Comment: Unable to obtain due to patient condition. Visual Impairment: Limited Hearing Ability: Normal Internal Security Manager Required: No Beliefs That Will Affect Care: None marital status: Single Current Living Situation: Spouse Current Living Situation Comment: and daughter in [place] current occupational status: disabled How many Children do You have: 3 How many Children do You have Comment: able to assist with care if needed Feels Safe at Home: Yes Childhood Exposure to Second-Hand Smoke: Yes (parents smoked) Diet: regular Diet Comment: going to be starting low carb/low calorie diet. caffeine: No (1/2 20 oz bottle of mountain dew. ) during the past year weight has: increased > 10 lbs Physical Activity Frequency: Daily Physical Activity Frequency Comment: walking, 1.5 miles daily. Seatbelt Use: always Do you think of yourself as: straight/heterosexual Gender Identity: Male Assistive Devices: Cane and Walker Review of Systems Review of Systems: All systems reviewed & are unremarkable except as noted in Subjective Physical Exam Physical Exam: General: mod discomfort noted, mood sl anxious NCAT; PERRLA, no pharyngeal erythema, edema, or discharge. Neck supple, no stridor No signif lymphadenopathy Resp effort at baseline, mild conversational dyspnea Irreg irreg Abdomen soft, BS+ ; +puentes, +bloody dark red urine AAOx3 Mood subdued, sl anxious affect skin pale/warm Results & Data Vital Signs (Past 12 Hours) Vital Signs Temp Pulse Pulse Resp BP Pulse Ox O2 Del Method 05/15/25 10:39 36.8 C 68 17 174/81 H 99 Nasal Cannula 05/15/25 07:08 36.8 C 74 18 145/86 H 92 Nasal Cannula 05/15/25 07:06 67 05/15/25 06:55 66 18 97 Nasal Cannula 05/15/25 02:37 36.6 C 67 18 159/84 H 97 Nasal Cannula O2 Flow Rate 05/15/25 10:39 2 05/15/25 07:08 3 05/15/25 07:06 05/15/25 06:55 2 05/15/25 02:37 Laboratory Results 05/15/25 05/15/25 05/14/25 Range/Units 07:06 06:12 20:21 WBC 11.80 H (4.8-10.8) K/ul RBC 2.97 L (4.70-6.10) M/uL Hgb 8.4 L (14.0-18.0) g/dl Hct 25.7 L (42.0-52.0) % MCV 86.5 (80.0-100.0) fL MCH 28.3 (25.0-34.0) pg MCHC 32.7 (32.0-36.0) g/dL RDW Std Deviation 42.6 (36.4-46.3) fL RDW Coeff of Yanira 13.6 (11.5-14.5) % Plt Count 194 (130-400) K/uL MPV 8.5 L (9.4-12.4) fL Immature Gran % (Auto) % Neut % (Auto) % Lymph % (Auto) % [place] % (Auto) % Eos % (Auto) % Baso % (Auto) % Neut # (Auto) (1.40-6.50) K/uL Lymph # (Auto) (1.20-3.40) K/uL [place] # (Auto) (0.11-0.59) K/uL Eos # (Auto) (0.00-0.50) K/uL Baso # (Auto) (0.00-0.20) K/uL Immature Gran # (Auto) (0.01-0.20) K/uL Sodium 140 (136-145) mmol/L Potassium 4.0 (3.5-5.1) mmol/L Chloride 103 (98-107) mmol/L Carbon Dioxide 33 H (21-32) mmol/L Anion Gap 4 (3-11) BUN 8 (6-23) mg/dl Creatinine 1.05 (0.6-1.4) mg/dl Est Cr Clr Drug Dosing 102.0 ml/min eGFR 83.31 BUN/Creatinine Ratio 7.6 L (10-20) Glucose 146 H (70-99(Fasting)) mg/dl POC Glucose 138 H 92 (70-99) mg/dl Calcium 8.5 L (8.6-10.3) mg/dl Total Bilirubin (0.2-1.0) mg/dl AST (13-39) U/L ALT (7-52) U/L Alkaline Phosphatase (34-104) U/L Troponin I High Sens (0-20) pg/ml Total Protein (6.0-8.3) gm/dl Albumin (3.4-5.0) gm/dl Globulin (2.5-4.0) gm/dl Albumin/Globulin Ratio (0.9-2) Lipase (11-82) U/L Urine Color Urine Appearance (Clear) Urine pH (4.5-7.5) Ur Specific [place] (1.000-1.030) Urine Protein (Negative) Urine Glucose (UA) (Negative) Urine Ketones (Negative) Urine Blood (Negative) Urine Nitrite (Negative) Urine Bilirubin (Negative) Urine Urobilinogen (Negative) Ur Leukocyte Esterase (Negative) Urine WBC (Auto) (0-5) /hpf Urine RBC (Auto) (0-2) /hpf U Hyaline Cast (Auto) (0-2) /lpf U Epithel Cells (Auto) (0-2) /hpf Urine Bacteria (Auto) (None Seen) Urine Comment [place] (0.6-1.2) mmol/L 05/14/25 05/14/25 05/14/25 Range/Units 15:57 11:22 08:20 WBC (4.8-10.8) K/ul RBC (4.70-6.10) M/uL Hgb (14.0-18.0) g/dl Hct (42.0-52.0) % MCV (80.0-100.0) fL MCH (25.0-34.0) pg MCHC (32.0-36.0) g/dL RDW Std Deviation (36.4-46.3) fL RDW Coeff of Yanira (11.5-14.5) % Plt Count (130-400) K/uL MPV (9.4-12.4) fL Immature Gran % (Auto) % Neut % (Auto) % Lymph % (Auto) % [place] % (Auto) % Eos % (Auto) % Baso % (Auto) % Neut # (Auto) (1.40-6.50) K/uL Lymph # (Auto) (1.20-3.40) K/uL [place] # (Auto) (0.11-0.59) K/uL Eos # (Auto) (0.00-0.50) K/uL Baso # (Auto) (0.00-0.20) K/uL Immature Gran # (Auto) (0.01-0.20) K/uL Sodium (136-145) mmol/L Potassium (3.5-5.1) mmol/L Chloride (98-107) mmol/L Carbon Dioxide (21-32) mmol/L Anion Gap (3-11) BUN (6-23) mg/dl Creatinine (0.6-1.4) mg/dl Est Cr Clr Drug Dosing ml/min eGFR BUN/Creatinine Ratio (10-20) Glucose (70-99(Fasting)) mg/dl POC Glucose 154 H 92 94 (70-99) mg/dl Calcium (8.6-10.3) mg/dl Total Bilirubin (0.2-1.0) mg/dl AST (13-39) U/L ALT (7-52) U/L Alkaline Phosphatase (34-104) U/L Troponin I High Sens (0-20) pg/ml Total Protein (6.0-8.3) gm/dl Albumin (3.4-5.0) gm/dl Globulin (2.5-4.0) gm/dl Albumin/Globulin Ratio (0.9-2) Lipase (11-82) U/L Urine Color Urine Appearance (Clear) Urine pH (4.5-7.5) Ur Specific [place] (1.000-1.030) Urine Protein (Negative) Urine Glucose (UA) (Negative) Urine Ketones (Negative) Urine Blood (Negative) Urine Nitrite (Negative) Urine Bilirubin (Negative) Urine Urobilinogen (Negative) Ur Leukocyte Esterase (Negative) Urine WBC (Auto) (0-5) /hpf Urine RBC (Auto) (0-2) /hpf U Hyaline Cast (Auto) (0-2) /lpf U Epithel Cells (Auto) (0-2) /hpf Urine Bacteria (Auto) (None Seen) Urine Comment [place] (0.6-1.2) mmol/L 05/14/25 05/14/25 05/13/25 Range/Units 05:52 05:45 20:38 WBC 14.12 H (4.8-10.8) K/ul RBC 3.61 L (4.70-6.10) M/uL Hgb 10.2 L (14.0-18.0) g/dl Hct 31.2 L (42.0-52.0) % MCV 86.4 (80.0-100.0) fL MCH 28.3 (25.0-34.0) pg MCHC 32.7 (32.0-36.0) g/dL RDW Std Deviation 42.6 (36.4-46.3) fL RDW Coeff of Yanira 13.7 (11.5-14.5) % Plt Count 196 (130-400) K/uL MPV 8.5 L (9.4-12.4) fL Immature Gran % (Auto) % Neut % (Auto) % Lymph % (Auto) % [place] % (Auto) % Eos % (Auto) % Baso % (Auto) % Neut # (Auto) (1.40-6.50) K/uL Lymph # (Auto) (1.20-3.40) K/uL [place] # (Auto) (0.11-0.59) K/uL Eos # (Auto) (0.00-0.50) K/uL Baso # (Auto) (0.00-0.20) K/uL Immature Gran # (Auto) (0.01-0.20) K/uL Sodium 140 (136-145) mmol/L Potassium 4.3 (3.5-5.1) mmol/L Chloride 104 (98-107) mmol/L Carbon Dioxide 27 (21-32) mmol/L Anion Gap 9 (3-11) BUN 8 (6-23) mg/dl Creatinine 1.00 (0.6-1.4) mg/dl Est Cr Clr Drug Dosing 107.2 ml/min eGFR 88.33 BUN/Creatinine Ratio 8.0 L (10-20) Glucose 96 (70-99(Fasting)) mg/dl POC Glucose 91 90 (70-99) mg/dl Calcium 8.6 (8.6-10.3) mg/dl Total Bilirubin (0.2-1.0) mg/dl AST (13-39) U/L ALT (7-52) U/L Alkaline Phosphatase (34-104) U/L Troponin I High Sens (0-20) pg/ml Total Protein (6.0-8.3) gm/dl Albumin (3.4-5.0) gm/dl Globulin (2.5-4.0) gm/dl Albumin/Globulin Ratio (0.9-2) Lipase (11-82) U/L Urine Color Urine Appearance (Clear) Urine pH (4.5-7.5) Ur Specific [place] (1.000-1.030) Urine Protein (Negative) Urine Glucose (UA) (Negative) Urine Ketones (Negative) Urine Blood (Negative) Urine Nitrite (Negative) Urine Bilirubin (Negative) Urine Urobilinogen (Negative) Ur Leukocyte Esterase (Negative) Urine WBC (Auto) (0-5) /hpf Urine RBC (Auto) (0-2) /hpf U Hyaline Cast (Auto) (0-2) /lpf U Epithel Cells (Auto) (0-2) /hpf Urine Bacteria (Auto) (None Seen) Urine Comment [place] 0.6 (0.6-1.2) mmol/L 05/13/25 05/13/25 05/13/25 Range/Units 13:42 13:34 13:24 WBC 10.70 (4.8-10.8) K/ul RBC 3.41 L (4.70-6.10) M/uL Hgb 9.7 L (14.0-18.0) g/dl Hct 29.4 L (42.0-52.0) % MCV 86.2 (80.0-100.0) fL MCH 28.4 (25.0-34.0) pg MCHC 33.0 (32.0-36.0) g/dL RDW Std Deviation 42.9 (36.4-46.3) fL RDW Coeff of Yanira 13.9 (11.5-14.5) % Plt Count 193 (130-400) K/uL MPV 8.9 L (9.4-12.4) fL Immature Gran % (Auto) 4.3 % Neut % (Auto) 72.9 % Lymph % (Auto) 14.3 % [place] % (Auto) 5.3 % Eos % (Auto) 2.7 % Baso % (Auto) 0.5 % Neut # (Auto) 7.80 H (1.40-6.50) K/uL Lymph # (Auto) 1.53 (1.20-3.40) K/uL [place] # (Auto) 0.57 (0.11-0.59) K/uL Eos # (Auto) 0.29 (0.00-0.50) K/uL Baso # (Auto) 0.05 (0.00-0.20) K/uL Immature Gran # (Auto) 0.46 H (0.01-0.20) K/uL Sodium 138 (136-145) mmol/L Potassium 4.1 (3.5-5.1) mmol/L Chloride 103 (98-107) mmol/L Carbon Dioxide 26 (21-32) mmol/L Anion Gap 9 (3-11) BUN 9 (6-23) mg/dl Creatinine 1.08 (0.6-1.4) mg/dl Est Cr Clr Drug Dosing 100.9 ml/min eGFR 80.54 BUN/Creatinine Ratio 8.3 L (10-20) Glucose 146 H (70-99(Fasting)) mg/dl POC Glucose 156 H (70-99) mg/dl Calcium 8.8 (8.6-10.3) mg/dl Total Bilirubin 0.2 (0.2-1.0) mg/dl AST 12 L (13-39) U/L ALT 8 (7-52) U/L Alkaline Phosphatase 60 (34-104) U/L Troponin I High Sens 5.9 (0-20) pg/ml Total Protein 5.7 L (6.0-8.3) gm/dl Albumin 3.4 (3.4-5.0) gm/dl Globulin 2.3 L (2.5-4.0) gm/dl Albumin/Globulin Ratio 1.5 (0.9-2) Lipase 34 (11-82) U/L Urine Color Red Urine Appearance Cloudy A (Clear) Urine pH 6.0 (4.5-7.5) Ur Specific [place] 1.013 (1.000-1.030) Urine Protein 2+ H (Negative) Urine Glucose (UA) Negative (Negative) Urine Ketones Negative (Negative) Urine Blood 3+ H (Negative) Urine Nitrite Negative (Negative) Urine Bilirubin Negative (Negative) Urine Urobilinogen Negative (Negative) Ur Leukocyte Esterase 3+ H (Negative) Urine WBC (Auto) 21-50 H (0-5) /hpf Urine RBC (Auto) >20 H (0-2) /hpf U Hyaline Cast (Auto) 0-2 (0-2) /lpf U Epithel Cells (Auto) 3-5 H (0-2) /hpf Urine Bacteria (Auto) None Seen (None Seen) Urine Comment [place] (0.6-1.2) mmol/L Diagnostic Findings Head CT 05/13/25 13:32 CT head/brain wo con CLINICAL HISTORY: seizure. TECHNIQUE: Multiple axial CT images of the head were obtained without contrast. A dose lowering technique was utilized adhering to the principles of ALARA. CT DOSE: 813.12 mGy.cm COMPARISON: 03/27/2025 FINDINGS: 6 cm arachnoid cyst versus patrick cisterna magna again seen posterior aspect of the posterior cranial fossa. No intracranial hemorrhage seen. No mass effect, midline shift, or hydrocephalus. No skull fracture seen. Visualized paranasal sinuses and mastoid air cells are clear. IMPRESSION: No acute findings. ACT 112: Negative or not required by law. The above report was generated using voice recognition software. It may contain grammatical, syntax or spelling errors. Electronically signed by: Keon Crump M.D. 05/13/2025 2:08 PM KUB X-Ray 05/13/25 13:32 KUB HISTORY: abd pain COMPARISON STUDY: 05/07/2025 FINDINGS: Bilateral ureteral stents appear well-positioned. There is mild retained stool. No bowel obstruction seen. No gross free air. IMPRESSION: No acute findings. ACT 112: Negative or not required by law. The above report was generated using voice recognition software. It may contain grammatical, syntax or spelling errors. Electronically signed by: Keon Crump M.D. 05/13/2025 2:56 PM Abdomen/Pelvis CT 05/13/25 15:26 EXAMINATION: CT of the abdomen and pelvis performed without contrast TECHNIQUE: Helical CT images from the lung bases through the symphysis pubis were obtained without contrast. Coronal and sagittal reformatted images were generated at a workstation for further assessment. Dose reduction techniques were achieved by using automatic exposure control and/or adjustment of mA and/or kV according to patient size and/or use of iterative reconstruction technique. COMPARISON: 04/06/2024 HISTORY: Abdominal pain FINDINGS: Lower chest: No consolidation. No pleural effusion or pneumothorax. Liver: No suspicious liver lesions. Gallbladder: No gallstones. No evidence of acute cholecystitis. Spleen: Normal size. Pancreas: No suspicious pancreatic lesions. The pancreatic duct is not dilated. Adrenal glands: No adrenal nodules. Kidneys: No hydronephrosis or obstructing renal stones. Bilateral nephroureteral stents. Bladder / Pelvic organs: Unremarkable. Bowel: No bowel obstruction. No abnormal bowel wall thickening. The appendix is unremarkable. Lymph nodes: No retroperitoneal, mesenteric, or pelvic lymphadenopathy. Peritoneum / Retroperitoneum: A small area of fluid in the left lower quadrant measuring 3 cm in diameter is seen and new from prior. Vessels: No infrarenal aortic aneurysm. Bones and soft tissues: No suspicious lesion in the bones. IMPRESSION: Bilateral nephroureteral stents, appear unremarkable. A small area of fluid in the left lower quadrant measuring 3 cm in diameter is seen and new from prior. No other acute finding. Electronically signed by Glynn Nguyen 05-13-2025 4:16 PM Retrograde Pyelogram 05/14/25 00:00 FL retrograde includes kub CLINICAL HISTORY: B/L RETROGRADES COMPARISON STUDY: None FLUOROSCOPY TIME: 16 FLUOROSCOPY IMAGES: 6 EXPOSURE DOSE: 8 mGy FINDINGS: Fluoroscopy was provided for urologic procedure. IMPRESSION: Intraoperative fluoroscopy. ACT 112: Negative or not required by law. Electronically signed by: Keon Crump M.D. 05/14/2025 11:10 AM PG Care Time/CCT Total # of Minutes Spent Total Time Spent with Patient: Total time spent is greater than 50% in coordination of care (as documented) at patient's floor/unit and/or counseling patient: I spent 70 minutes overall addressing this case: 10 min in medical data review/discussion with referring provider(s) and/or preparation for the visit 10 min in direct interaction with the patient/exam 25 min in Advance Care Planning/Goals of Care discussions as detailed above in note (must be >16min) 10 min in subsequent review and synthesis of assessment and plan 15 min communicating with other providers regarding the patient's case: primary team, nursing Advanced Care Planning 51562 Advanced Care Planning 30 [place] [address] IN/OBS CONSULT LVL 3,45M (25 - SIGNIFICANT, SEPARATELY IDENTIFIABLE ) Patient Type New Medical Decision Making High Complexity Diagnoses Abdominal pain R10.9 Abdominal location: unspecified location Generalized pain R52 Lumbar stenosis with neurogenic claudication M48.062 Advanced care planning/counseling discussion Z71.89 Palliative care by specialist Z51.5 Back pain at L4-L5 level M54.50 Acute flank pain R10.9 Additional Codes Advanced Care Planning - 59352 Advanced Care Planning 30 Min: 05460 Advanced Care Planning 30 Min ([id number]) Comment [id number], [id number]
[2025-05-15] MEDS: oxyCODONE HCL IR 5 MG TAB (IMMEDIATE RELEASE) PO PRN (11:53)
--- NOTE | 2025-05-15 12:04 | Hospitalist Progress Note ---
Date of Service May 15, 2025 Assessment & Plan (1) Kidney stones: (2) Panhypopituitarism: (3) Atrial fibrillation: (4) Psychogenic nonepileptic seizure: (5) Diabetes: (6) Bipolar 1 disorder: Plan 54-year-old male Re presents after 1 day discharge with abdominal pain with recent ureteral stent placement. Patient reportedly had seizure-like activity en route and has a history of pending MARY KAY. He was given 6 mg of Versed. Upon awakening after the Versed he continues have significant intractable pain #Abdominal pain/renal colic Etiology of his pain could be his bilateral ureteral stents, with some chronic pains He is now day1 s/p Cystoscopy and Bilateral Stent Removal Says he feels better, but the pain is there Still has some dysuria and blood in urine Palliative is involved in pain mgt Appreciate urology continue pain mgt #Panhypopituitary, typically sees Dr. Voss Takes desmopressin 0.4 p.o. twice daily Adrenal insufficiency treated with hydrocortisone 20 mg in the morning 10 mg at 2 PM Acquired hypothyroidism with levothyroxine 150 mcg a day Hypogonadism treated with testosterone to 20.25 mg / 1.25 g gel 2 pumps topically every afternoon #Atrial fibrillation patient reportedly had a Watchman procedure January 2024 remains on Toprol XL (also on propranolol for tremor) for rate control and Eliquis therapy, its unclear if this was restarted after watchman, . Is on dual antiplatelet therapy that was held for cystoscopy. COPD At baseline continue duonebs scheuled and prn #Diabetes patient is on metformin, glargine and monjouro. 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 Mention the patient is on Botox and Nurtec #Bipolar disorder continues on Abilify lithium mirtazapine prazosin and propranolol Effexor trazodone typically followed by Dr. Berry we will check a lithium level #Chronic low back pain typically taken duloxetine DVT prevention is Eliquis therapy DNR/DNI Admission and Anticipated Discharge Date Admission Date: May 13, 2025 Subjective patient seen and examined, still has some hematuria, came back from stent removal, says his pain is better Review of Systems Review of Systems: All systems reviewed are negative, apart from the ones contained in the history. Physical Exam Physical Exam: The patient is awake, alert and oriented 3, well developed and well nourished, normocephalic and atraumatic, lying in bed and in no acute distress. HEENT--PERRL, EOMI, mucous membranes and oropharynx mildly dry Neck--supple. No JVD. No bruits. Thyroid normal, trachea midline, no adenopathy. Heart--normal S1 and S2. No murmurs, rubs or gallops. Lungs--clear bilaterally, no respiratory distress, no accessory muscle use. Abdomen--normal bowel sounds and soft. Extremities--no cyanosis or clubbing. No edema. Dermatologic--normal skin turgor, normal color, no abnormal lymph nodes, no rash. Neurologic--cranial nerves II through XII grossly intact. Rheumatologic--normal range of motion. Psychiatric--normal affect. Results & Data Results & Data Vital Signs (Past 12 Hours) Vital Signs Temp Pulse Pulse Resp BP Pulse Ox O2 Del Method 05/15/25 11:02 Nasal Cannula 05/15/25 10:39 98.2 F 68 17 174/81 H 99 Nasal Cannula 05/15/25 07:08 98.2 F 74 18 145/86 H 92 Nasal Cannula 05/15/25 07:06 67 05/15/25 06:55 66 18 97 Nasal Cannula 05/15/25 02:37 97.9 F 67 18 159/84 H 97 Nasal Cannula O2 Flow Rate 05/15/25 11:02 2 05/15/25 10:39 2 05/15/25 07:08 3 05/15/25 07:06 05/15/25 06:55 2 05/15/25 02:37 PG Care Time/CCT Total # of Minutes Spent Total Time Spent with Patient: Total time spent is greater than 50% in coordination of care (as documented) at patient's floor/unit and/or counseling patient: Coding Level of Care Code 60290 SUB INP/OBS CARE 2/35MIN Diagnoses Kidney stones N20.0 Panhypopituitarism E23.0 Atrial fibrillation I48.91 Atrial fibrillation type: unspecified Psychogenic nonepileptic seizure F44.5 Diabetes E11.9 Bipolar 1 disorder F31.9 Time Spent (min) 35 (3) Atrial fibrillation Atrial fibrillation type: unspecified Qualified Code(s): I48.91 - Unspecified atrial fibrillation
--- NOTE | 2025-05-15 12:17 | Urology Progress Note ---
Date of Service May 15, 2025 Assessment & Plan (1) Abdominal pain: (2) Kidney stones: (3) Ureteral stent present: Plan POD #1 s/p cystoscopy and bilateral ureteral stent removal. 20Fr Welsh catheter placed by nursing staff last evening due to clot obstruction. Catheter is currently draining appropriately- urine is pink. Patient continues to have flank and pelvic discomfort. He is afebrile, hemodynamically stable. Labs today - WBCs 11.80, Hemoglobin 10.2 -8.4 today, Creatinine 1.05 Urine culture was negative. Maintain Welsh catheter for now and monitor urine output. Okay to hand irrigate as needed for clots, retention, suprapubic pain. Patient is adamant that he does not want to go home with the catheter so can offer void trial prior to discharge. Continue supportive care and pain management as needed. Continue to trend labs. Urology will follow along, please call with any questions/concerns. Admission and Anticipated Discharge Date Admission Date: May 13, 2025 Subjective Pt seen at bedside today Awake and resting in bed on arrival No acute distress Welsh placed yesterday for clot retention- currently draining light pink urine Still with flank and pelvic discomfort No fevers Review of Systems Constitutional: as per Subjective / HPI Genitourinary: + as per Subjective / HPI Physical Exam Constitutional: no acute distress Respiratory: no respiratory distress and no labored breathing Neurologic: moves all extremities and awake Psychiatric: A+Ox3, euthymic affect Genitourinary: Welsh intact and draining pink urine Results & Data Vital Signs (Past 12 Hours) Vital Signs Temp Pulse Pulse Resp BP Pulse Ox O2 Del Method 05/15/25 11:02 Nasal Cannula 05/15/25 10:39 36.8 C 68 17 174/81 H 99 Nasal Cannula 05/15/25 07:08 36.8 C 74 18 145/86 H 92 Nasal Cannula 05/15/25 07:06 67 05/15/25 06:55 66 18 97 Nasal Cannula 05/15/25 02:37 36.6 C 67 18 159/84 H 97 Nasal Cannula O2 Flow Rate 05/15/25 11:02 2 05/15/25 10:39 2 05/15/25 07:08 3 05/15/25 07:06 05/15/25 06:55 2 05/15/25 02:37 PG Care Time/CCT Total # of Minutes Spent Total Time Spent with Patient: Total time spent is greater than 50% in coordination of care (as documented) at patient's floor/unit and/or counseling patient: Coding Level of Care Code 18389 SUB INP/OBS CARE 2/35MIN Diagnoses Abdominal pain R10.9 Abdominal location: unspecified location Kidney stones N20.0 Ureteral stent present Z96.0 (1) Abdominal pain Abdominal location: unspecified location Qualified Code(s): R10.9 - Unspecified abdominal pain
--- NOTE | 2025-05-15 15:28 | Electrocardiogram Report ---
Test Reason : Blood Pressure : */* mmHG Vent. Rate : 99 BPM Atrial Rate : 99 BPM P-R Int : 162 ms QRS Dur : 90 ms QT Int : 368 ms P-R-T Axes : 53 6 46 degrees QTcB Int : 472 ms Normal sinus rhythm Normal ECG When compared with ECG of 27-Mar-2025 11:15, No significant change was found Confirmed by Bo Edwards [id number] on 05/15/2025 3:27:47 PM Referred By: Confirmed By: Bo Edwards
[2025-05-15] MEDS: POLYETHYLENE (MIRALAX) 17 GM PACK PO ONE (18:45)
[2025-05-16 09:06] LABS: Hematocrit (blood only) 25.8 % (42.0-52.0); Hemoglobin 8.5 g/dl (14.0-18.0); Mean Corpuscular Hemoglobin 28.9 pg (25.0-34.0); Mean Corpuscular Hgb Conc 32.9 g/dL (32.0-36.0); Mean Corpuscular Volume 87.8 fL (80.0-100.0); Mean Platelet Volume 8.2 fL (9.4-12.4); Platelet Count 204 K/uL (130-400); RDW Standard Deviation 44.1 fL (36.4-46.3); Red Blood Count 2.94 M/uL (4.70-6.10); White Blood Count 11.91 K/ul (4.8-10.8)
--- NOTE | 2025-05-16 09:17 | Palliative Care Progress Note ---
Date of Service May 16, 2025 Assessment & Plan (1) Palliative care by specialist: Plan: Palliative care will continue to follow for ongoing symptom management and pt / family support. (2) Back pain at L4-L5 level: (3) Generalized pain: Plan: Seen and followed in clinic by Dr Lindo who just yesterday Increased to OxyIR to 15mg PO q6h prn/Hold for somnolence or RR less than 14; please document RR with each dose administration. Pt shared that his pain is currently well controlled and is happy with current regime. We discussed that he has continued to require frequent morphine IV PRN for breakthrough pain. He shared that the oxyIR offers adequate relief but not lasting long enough. We discussed shortening PRN interval to better manage pain and I encouraged only taking the IV morphine if oxy does not offer adequate relief. Pt agreeable to this and plans to follow in palliative outpt clinic in 2-3 weeks. 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 Significant pain knees, ankles, shoulders (4) Counseling regarding advanced directives and goals of care: Plan: Met with pt and his today for 35min. discussed and reinforced previous conversation about goals of care. Pt states that he wishes to be DNR/DNI, POLST will need to be re-completed prior to discharge. Pt discussed his advanced directive and stated that it is consistent with his expressed wish for DNR/DNI. Pt states that he does wish for ongoing life prolonging treatment at this time, he is happy with current course of treatment and hopeful that we will be able to continue adequate pain management. He reinforced his desire to not be resuscitated nor placed on mechanical ventilation, and if such is required he would opt for transition to comfort directed care. His is supportive with his wishes. From previous palliative care team notes: - He states he is a DNR/DNI. he has completed AD paperwork attesting to this but it is not on file with [employer]. he states last night around 930pm "a natalee with pointy shoes came in to my room to talk about being a DNR and made me sign some pink form." Of note, this presumed POLST cannot be located on the unit -he states he was very upset they did CPR during recent admission and placed him on a vent. I reviewed his hospital chart - in d/w teams he had elected full code. he states he cannot recall those discussions. - I have requested to bring a copy of advanced directive at next visit for inclusion in medical records - he is DNR/DNI, order written - he tells me his suffering seems to be growing. He has more thoughts of "just stopping everything, all the meds all the procedures and just letting nature take its course." has had conversations about this with his , she is supportive. he shares a private home with her, 1 small dog, her 2 adult children (ages 21 and 18yo) and the 21yo son's girlfriend. Her daughter and son's girlfriend do not work. None of them contribute to household. They do not drive, do not assist patient with his needs, do not transport him to medical appointments. - he is frustrated by recent back and forth admissions, complications and increased pain/colic/now with puentes. Feels much of this has been demoralizing and he feels defeated in the sense of "nothing is working, is this worthwhile anymore?" We discussed the importance to not make major decisions while acutely ill, and agreed to follow up in clinic within 2-3 weeks of dc Plan as above Admission and Anticipated Discharge Date Admission Date: May 13, 2025 Subjective Assessed pt at bedside, JOSEFA. pt awake and alert and pleasantly communicative. He shared that his pain is well managed at a 4-5::10 scale. was at bedside. Review of Systems Review of Systems: All systems reviewed & are unremarkable except as noted in Subjective Physical Exam Constitutional: no acute distress Respiratory: no respiratory distress and no labored breathing Neurologic: moves all extremities and awake Psychiatric: A+Ox3, euthymic affect Genitourinary: Puentes intact and draining with hematuria Results & Data Vital Signs (Past 12 Hours) Vital Signs Temp Pulse Pulse Resp BP BP Pulse Ox 05/16/25 07:50 36.5 C 75 18 114/69 96 05/16/25 07:17 69 18 98 05/16/25 02:35 36.5 C 74 16 160/87 H 99 05/15/25 23:19 36.5 C 68 16 151/77 H 94 05/15/25 22:06 81 O2 Del Method O2 Flow Rate 05/16/25 07:50 Nasal Cannula 2 05/16/25 07:17 Nasal Cannula 3 05/16/25 02:35 Nasal Cannula 2 05/15/25 23:19 Nasal Cannula 2 05/15/25 22:06 Laboratory Results Abnormal lab results 05/15/25 05/16/25 05/16/25 Range/Units 16:03 07:24 08:43 WBC 11.91 H (4.8-10.8) K/ul RBC 2.94 L (4.70-6.10) M/uL Hgb 8.5 L (14.0-18.0) g/dl Hct 25.8 L (42.0-52.0) % MPV 8.2 L (9.4-12.4) fL Carbon Dioxide 35 H (21-32) mmol/L BUN/Creatinine Ratio 6.6 L (10-20) Glucose 173 H (70-99(Fasting)) mg/dl POC Glucose 168 H 112 H (70-99) mg/dl Calcium 8.5 L (8.6-10.3) mg/dl 05/16/25 Range/Units 10:59 WBC (4.8-10.8) K/ul RBC (4.70-6.10) M/uL Hgb (14.0-18.0) g/dl Hct (42.0-52.0) % MPV (9.4-12.4) fL Carbon Dioxide (21-32) mmol/L BUN/Creatinine Ratio (10-20) Glucose (70-99(Fasting)) mg/dl POC Glucose 115 H (70-99) mg/dl Calcium (8.6-10.3) mg/dl Diagnostic Findings Head CT 05/13/25 13:32 CT head/brain wo con CLINICAL HISTORY: seizure. TECHNIQUE: Multiple axial CT images of the head were obtained without contrast. A dose lowering technique was utilized adhering to the principles of ALARA. CT DOSE: 813.12 mGy.cm COMPARISON: 03/27/2025 FINDINGS: 6 cm arachnoid cyst versus patrick cisterna magna again seen posterior aspect of the posterior cranial fossa. No intracranial hemorrhage seen. No mass effect, midline shift, or hydrocephalus. No skull fracture seen. Visualized paranasal sinuses and mastoid air cells are clear. IMPRESSION: No acute findings. ACT 112: Negative or not required by law. The above report was generated using voice recognition software. It may contain grammatical, syntax or spelling errors. Electronically signed by: Keon Crump M.D. 05/13/2025 2:08 PM KUB X-Ray 05/13/25 13:32 KUB HISTORY: abd pain COMPARISON STUDY: 05/07/2025 FINDINGS: Bilateral ureteral stents appear well-positioned. There is mild retained stool. No bowel obstruction seen. No gross free air. IMPRESSION: No acute findings. ACT 112: Negative or not required by law. The above report was generated using voice recognition software. It may contain grammatical, syntax or spelling errors. Electronically signed by: Keon Crump M.D. 05/13/2025 2:56 PM Abdomen/Pelvis CT 05/13/25 15:26 EXAMINATION: CT of the abdomen and pelvis performed without contrast TECHNIQUE: Helical CT images from the lung bases through the symphysis pubis were obtained without contrast. Coronal and sagittal reformatted images were generated at a workstation for further assessment. Dose reduction techniques were achieved by using automatic exposure control and/or adjustment of mA and/or kV according to patient size and/or use of iterative reconstruction technique. COMPARISON: 04/06/2024 HISTORY: Abdominal pain FINDINGS: Lower chest: No consolidation. No pleural effusion or pneumothorax. Liver: No suspicious liver lesions. Gallbladder: No gallstones. No evidence of acute cholecystitis. Spleen: Normal size. Pancreas: No suspicious pancreatic lesions. The pancreatic duct is not dilated. Adrenal glands: No adrenal nodules. Kidneys: No hydronephrosis or obstructing renal stones. Bilateral nephroureteral stents. Bladder / Pelvic organs: Unremarkable. Bowel: No bowel obstruction. No abnormal bowel wall thickening. The appendix is unremarkable. Lymph nodes: No retroperitoneal, mesenteric, or pelvic lymphadenopathy. Peritoneum / Retroperitoneum: A small area of fluid in the left lower quadrant measuring 3 cm in diameter is seen and new from prior. Vessels: No infrarenal aortic aneurysm. Bones and soft tissues: No suspicious lesion in the bones. IMPRESSION: Bilateral nephroureteral stents, appear unremarkable. A small area of fluid in the left lower quadrant measuring 3 cm in diameter is seen and new from prior. No other acute finding. Electronically signed by Glynn Nguyen 05-13-2025 4:16 PM Retrograde Pyelogram 05/14/25 00:00 FL retrograde includes kub CLINICAL HISTORY: B/L RETROGRADES COMPARISON STUDY: None FLUOROSCOPY TIME: 16 FLUOROSCOPY IMAGES: 6 EXPOSURE DOSE: 8 mGy FINDINGS: Fluoroscopy was provided for urologic procedure. IMPRESSION: Intraoperative fluoroscopy. ACT 112: Negative or not required by law. Electronically signed by: Keon Crump M.D. 05/14/2025 11:10 AM Medications Administered Current Inpatient Medications Albuterol (Albut/Ipratrop 3mg/0.5mg Neb 3 Ml Vial) 3 ml INH QID PRN; Protocol PRN Reason: wheezing Stop: 06/12/25 20:32 Aripiprazole (Aripiprazole 5 Mg Tab) 5 mg PO QAM OBDULIO Stop: 06/13/25 08:59 Last Admin: 05/16/25 08:15 Dose: 5 mg Bisacodyl (Bisacodyl 10 Mg Supp) 10 mg SC DAILY PRN PRN Reason: Constipation Stop: 06/15/25 09:22 Budesonide (Budesonide 0.5 Mg/2 Ml Vial (Pulmicort)) 0.5 mg INH QPM OBDULIO Stop: 06/12/25 20:59 Last Admin: 05/15/25 18:22 Dose: 0.5 mg Bumetanide (Bumetanide 1 Mg Tab) 1 mg PO QAM OBDULIO Stop: 06/13/25 08:59 Last Admin: 05/16/25 08:15 Dose: 1 mg Desmopressin Acetate (Desmopressin Acetate 0.1 Mg Tab) 0.4 mg PO BID OBDULIO Stop: 06/12/25 20:59 Last Admin: 05/16/25 08:18 Dose: 0.4 mg Dextrose (Dextrose 50% 50 Ml Syringe) 25 - 50 ml IV UD PRN; Protocol PRN Reason: Hypoglycemia Protocol Stop: 06/12/25 18:44 Divalproex Sodium (Divalproex Delay Release 500 Mg Tab) 1,000 mg PO QAM [facility] Stop: 06/13/25 08:59 Last Admin: 05/16/25 08:18 Dose: 1,000 mg Duloxetine HCl (Duloxetine Hcl 30 Mg Cap) 30 mg PO HS [facility] Stop: 06/12/25 20:59 Last Admin: 05/15/25 21:13 Dose: 30 mg Duloxetine HCl (Duloxetine Hcl 60 Mg Cap) 60 mg PO QAM [facility] Stop: 06/13/25 08:59 Last Admin: 05/16/25 08:17 Dose: 60 mg Famotidine (Famotidine 20 Mg Tab) 20 mg PO QAM [facility] Stop: 06/13/25 08:59 Last Admin: 05/16/25 08:13 Dose: 20 mg Ferrous Sulfate (Ferrous Sulfate 325 Mg Tab) 325 mg PO Q2D [facility] Stop: 06/13/25 08:59 Last Admin: 05/16/25 08:17 Dose: 325 mg Fluticasone Propionate (Fluticasone Propionate Na Spr 16 Gm Btl) 1 sprays NA HS PRN PRN Reason: allergy symptoms Stop: 06/12/25 20:32 Formoterol Fumarate (Formoterol 20 Mcg/2 Ml Vial) 20 mcg INH BIDR OBDULIO Stop: 06/13/25 06:59 Last Admin: 05/16/25 07:16 Dose: 20 mcg Glucagon (Glucagon For Inj 1 Mg Vial) 1 mg SQ UD PRN; Protocol PRN Reason: Hypoglycemia Protocol Stop: 06/12/25 18:44 Glucose (Glucose 40% Gel 15 Gm Tube) 15 - 30 gm PO UD PRN; Protocol PRN Reason: Hypoglycemia Protocol Stop: 06/12/25 18:44 Glucose (Glucose 10 Tab/Tube) 4 - 8 tab PO UD PRN; Protocol PRN Reason: Hypoglycemia Protocol Stop: 06/12/25 18:44 Hydrocortisone (Hydrocortisone 10 Mg Tab) 20 mg PO QAM [facility] Stop: 06/13/25 08:59 Last Admin: 05/16/25 08:16 Dose: 20 mg Hydrocortisone (Hydrocortisone 10 Mg Tab) 10 mg PO HS OBDULIO Stop: 06/12/25 21:14 Last Admin: 05/15/25 21:12 Dose: 10 mg Ceftriaxone Sodium (Rocephin) 2,000 mg in 50 mls @ 100 mls/hr IV Q24H OBDULIO Stop: 05/23/25 15:59 Last Infusion: 05/15/25 16:16 Dose: Infused Insulin Aspart (Insulin Aspart Per Unit Charge) 0 units SC ACHS OBDULIO Stop: 06/13/25 11:44 Last Admin: 05/16/25 12:25 Dose: 1 units Lacosamide (Lacosamide 50 Mg Tablet) 150 mg PO BID OBDULIO Stop: 06/12/25 20:59 Last Admin: 05/16/25 08:13 Dose: 150 mg Levetiracetam (Levetiracetam 500 Mg Tab) 1,000 mg PO BID OBDULIO Stop: 06/12/25 21:14 Last Admin: 05/16/25 08:17 Dose: 1,000 mg Levothyroxine Sodium (Levothyroxine Sodium 150 Mcg Tablet) 150 mcg PO DAILYBB OBDULIO Stop: 06/13/25 06:29 Last Admin: 05/16/25 05:50 Dose: 150 mcg Lisinopril (Lisinopril 40 Mg Tab) 40 mg PO QAM OBDULIO Stop: 06/13/25 08:59 Last Admin: 05/16/25 08:15 Dose: 40 mg [place] Carbonate ([place] Carbonate 300 Mg Tab) 300 mg PO AMHS OBDULIO Stop: 06/12/25 20:59 Last Admin: 05/16/25 09:02 Dose: 300 mg Lorazepam (Lorazepam 0.5 Mg Tab) 0.5 mg PO DAILY PRN PRN Reason: Seizure Activity Stop: 06/12/25 20:32 Lorazepam (Lorazepam 2 Mg/1 Ml Vial) 4 mg IV Q2H PRN PRN Reason: seizure Stop: 06/13/25 12:33 Magnesium Oxide (Magnesium Oxide 400 Mg Tab) 400 mg PO DAILY OBDULIO Stop: 06/13/25 08:59 Last Admin: 05/16/25 08:15 Dose: 400 mg Metoprolol Succinate (Metoprolol Succ 25mg Ext Rel Tab) 25 mg PO HS [facility] Stop: 06/12/25 20:59 Last Admin: 05/15/25 21:11 Dose: 25 mg Mirtazapine (Mirtazapine Tab 15 Mg Tab) 30 mg PO HS [facility] Stop: 06/12/25 20:59 Last Admin: 05/15/25 21:13 Dose: 30 mg Miscellaneous (Carbohydrates For Hypoglycemia ) 15 - 30 gm PO UD PRN PRN Reason: Hypoglycemia Treatment Stop: 06/12/25 18:44 Miscellaneous Information (Pharmacy Glycemic Mgmt Consult) 1 each N/A UD PRN; Protocol PRN Reason: Consult Stop: 06/12/25 17:40 Morphine Sulfate (Morphine Sulfate 2 Mg/Ml Carp) 2 mg IV Q4 PRN PRN Reason: Moderate Pain (Scale 4, 5, 6) Stop: 05/27/25 20:32 Morphine Sulfate (Morphine Sulfate 4 Mg/Ml 1 Ml Carp\\Vial) 4 mg IV Q4 PRN PRN Reason: Severe Pain (Scale 7, 8, 9,10) Stop: 05/27/25 20:32 Last Admin: 05/15/25 23:16 Dose: 4 mg Ondansetron HCl (Ondansetron Inj 2 Mg/Ml 2 Ml Vial) 4 mg IV Q6H PRN PRN Reason: Nausea Stop: 06/12/25 20:32 Last Admin: 05/14/25 19:45 Dose: 4 mg Oxybutynin Chloride (Oxybutynin Chloride Xl 5 Mg Tabcr) 5 mg PO QAM [facility] Stop: 06/13/25 08:59 Last Admin: 05/16/25 08:16 Dose: 5 mg Oxycodone HCl (Oxycodone Hcl Ir 5 Mg Tab (Immediate Release)) 15 mg PO Q4H PRN PRN Reason: Moderate Pain 4-6/10 Stop: 05/29/25 10:41 Last Admin: 05/16/25 12:26 Dose: 15 mg Pantoprazole Sodium (Pantoprazole 40 Mg Tab) 40 mg PO BID [facility] Stop: 06/12/25 20:59 Last Admin: 05/16/25 08:18 Dose: 40 mg Polyethylene Glycol (Polyethylene (Miralax) 17 Gm Pack) 17 gm PO BID PRN PRN Reason: Constipation Stop: 06/15/25 09:22 Last Admin: 05/16/25 10:16 Dose: 17 gm Potassium Chloride (Potassium Chloride 10 Meq Tabcr) 10 meq PO QPM [facility] Stop: 06/12/25 20:59 Last Admin: 05/15/25 21:14 Dose: 10 meq Prazosin HCl (Prazosin Hcl 1 Mg Cap) 5 mg PO [facility] Stop: 06/12/25 20:59 Last Admin: 05/15/25 21:12 Dose: 5 mg Propranolol HCl (Propranolol Hcl 60 Mg [place]) 120 mg PO [facility] Stop: 06/12/25 20:59 Last Admin: 05/15/25 21:12 Dose: 120 mg Quetiapine Fumarate (Quetiapine Fumarate 50 Mg Tabcr) 50 mg PO QA [facility] Stop: 06/13/25 08:59 Last Admin: 05/16/25 08:16 Dose: 50 mg Tamsulosin HCl (Tamsulosin Hcl 0.4 Mg Cap) [facility] Stop: 06/13/25 08:59 Last Admin: 05/16/25 08:17 Dose: 0.4 mg Trazodone HCl (Trazodone Hcl 100 Mg Tab) 100 mg PO [facility] Stop: 06/12/25 20:59 Last Admin: 05/15/25 21:12 Dose: 100 mg Umeclidinium Antimony (Umeclidinium Antimony 62.5mcg/Blister 7 Puffs/Inhaler) 1 puffs INH DAILY [facility] Stop: 06/13/25 08:59 Last Admin: 05/16/25 08:14 Dose: 1 puffs Venlafaxine HCl (Venlafaxine Hcl Xr 75 Mg Capxr) [facility] [place] Stop: 06/13/25 08:59 Last Admin: 05/16/25 08:15 Dose: 75 mg Venlafaxine HCl (Venlafaxine Hcl Xr 150 Mg Capxr) 150 mg PO QA OBDULIO Stop: 06/13/25 08:59 Last Admin: 05/16/25 08:15 Dose: 150 mg Vitamin B Complex (Vitamin B Complex Tab) 1 tab PO QAM [facility] Stop: 06/13/25 08:59 Last Admin: 05/16/25 08:15 Dose: 1 tab Vitamin D (Cholecalciferol 25 Mcg (1000 Units) Tab) 50 mcg PO QPM [facility] Stop: 06/12/25 20:59 Last Admin: 05/15/25 21:12 Dose: 50 mcg PG Care Time/CCT Total # of Minutes Spent Total Time Spent with Patient: Total time spent is greater than 50% in coordination of care (as documented) at patient's floor/unit and/or counseling patient: Advanced Care Planning 08221 Advanced Care Planning 30 Min [place] [address] SUB INP/OBS CARE 2/35MIN Patient Type Established History Expanded Problem Focused Exam Expanded Problem Focused Medical Decision Making Moderate Complexity Diagnoses Palliative care by specialist Z51.5 Back pain at L4-L5 level M54.50 Generalized pain R52 Counseling regarding advanced directives and goals of care Z71.89 Additional Codes Advanced Care Planning - 93029 Advanced Care Planning 30 Min: 95346 Advanced Care Planning 30 Min ([id number])
[2025-05-16 09:22] LABS: BUN Creatinine Ratio 6.6 (10-20); Calcium 8.5 mg/dl (8.6-10.3); Creatinine Clr Calc Pharmacy 101.2 ml/min; Potassium 3.6 mmol/L (3.5-5.1)
[2025-05-16] MEDS ORDERED: bisacodyL 10 MG SUPP PR PRN (09:23)
[2025-05-16] MEDS: POLYETHYLENE (MIRALAX) 17 GM PACK PO PRN (10:16)
--- NOTE | 2025-05-16 11:01 | Urology Progress Note ---
Date of Service May 16, 2025 Assessment & Plan (1) Abdominal pain: (2) Kidney stones: (3) Ureteral stent present: Plan POD #2 s/p cystoscopy and bilateral ureteral stent removal. He is afebrile, hemodynamically stable. Labs today - WBCs 11.91, Hemoglobin 8.5 (was 8.4 yesterday), Creatinine 1.06. Urine culture was negative. Welsh intact and draining adequately - urine is light red. Maintain Welsh catheter for now and monitor urine output. Okay to hand irrigate as needed for clots, retention, suprapubic pain. Patient is adamant that he does not want to go home with the catheter so can offer void trial prior to discharge - Can likely plan for void trial in morning on 05/17. Continue supportive care and pain management as needed. Continue to trend labs. Urology will follow along, please call with any questions/concerns. Admission and Anticipated Discharge Date Admission Date: May 13, 2025 Subjective Pt seen at bedside today Awake and resting in bed on arrival No acute distress Still with some flank and pelvic discomfort Welsh draining with hematuria No fevers Review of Systems Constitutional: as per Subjective / HPI Genitourinary: + as per Subjective / HPI Physical Exam Constitutional: no acute distress Respiratory: no respiratory distress and no labored breathing Neurologic: moves all extremities and awake Psychiatric: A+Ox3, euthymic affect Genitourinary: Welsh intact and draining with hematuria Results & Data Vital Signs (Past 12 Hours) Vital Signs Temp Pulse Pulse Resp BP BP Pulse Ox 05/16/25 09:49 05/16/25 09:45 71 05/16/25 07:50 36.5 C 75 18 114/69 96 05/16/25 07:17 69 18 98 05/16/25 02:35 36.5 C 74 16 160/87 H 99 05/15/25 23:19 36.5 C 68 16 151/77 H 94 O2 Del Method O2 Flow Rate 05/16/25 09:49 Nasal Cannula 2 05/16/25 09:45 05/16/25 07:50 Nasal Cannula 2 05/16/25 07:17 Nasal Cannula 3 05/16/25 02:35 Nasal Cannula 2 05/15/25 23:19 Nasal Cannula 2 PG Care Time/CCT Total # of Minutes Spent Total Time Spent with Patient: Total time spent is greater than 50% in coordination of care (as documented) at patient's floor/unit and/or counseling patient: Coding Level of Care Code 06443 SUB INP/OBS CARE 2/35MIN Diagnoses Abdominal pain R10.9 Abdominal location: unspecified location Kidney stones N20.0 Ureteral stent present Z96.0 (1) Abdominal pain Abdominal location: unspecified location Qualified Code(s): R10.9 - Unspecified abdominal pain
[2025-05-16] MEDS: oxyCODONE HCL IR 5 MG TAB (IMMEDIATE RELEASE) PO PRN (12:26)
--- NOTE | 2025-05-16 12:36 | Pharmacy Report ---
Pharmacy Glycemic Short Note 2 - Date of Service May 16, 2025 - Glycemic Short BSG Results (Last 24 hours): 05/15/25 05/15/25 05/16/25 16:03 20:24 07:24 Glucose POC Glucose 168 H 89 112 H 05/16/25 05/16/25 08:43 10:59 Glucose 173 H POC Glucose 115 H OUTPATIENT ANTIDIABETIC REGIMEN: * Lantus 12 units SQ HS * Mounjaro 5mg SQ LACKEY * metformin 1000mg PO BID ASSESSMENT: 05/16: * Anders received a 15 units of insulin yesterday, all were bolus. BSGs were [phone]/dL * Fasting BSG was below goal this morning. Will continue to hold Lantus and will loosen the carb ratio of the bolus insulin. 05/13: * 54-year-old male presenting with abdominal pain with recent ureteral stent placement, possible seizure activity. Pharmacy consulted for glycemic management. Recently admitted, will plan to utilize similar parameters to prior admission. PLAN FOR INPATIENT GLYCEMIC CONTROL: * Hold outpatient oral diabetes medications * Basal insulin * Lantus - hold * Bolus insulin * NovoLog per scale ACHS or Q6hrs while NPO * Goal Range: Low 120 mg/dL - High 160 mg/dL * Correction Factor: 35 mg/dL/unit * Nutritional / Prandial insulin per carb ratio of 1 unit per 18 grams CHO consumed
--- NOTE | 2025-05-16 19:24 | Hospitalist Progress Note ---
Date of Service May 16, 2025 Assessment & Plan (1) Kidney stones: (2) Panhypopituitarism: (3) Atrial fibrillation: (4) Psychogenic nonepileptic seizure: (5) Diabetes: (6) Bipolar 1 disorder: Plan 54-year-old male Re presents after 1 day discharge with abdominal pain with recent ureteral stent placement. Patient reportedly had seizure-like activity en route and has a history of nonepileptic seizures. He was given 6 mg of Versed. Upon awakening after the Versed he continued to have significant intractable pain #Abdominal pain/renal colic Etiology of his pain could be his bilateral ureteral stents, with underlying chronic pain. He underwent cystoscopy and bilateral stent removal. Feeling better, acute on chronic pain improved after adjustment of medications by palliative care he continues to have hematuria and had some clots requiring irrigation this morning I have held his apixaban, see discussion below. DAPT also held for procedures and gross hematuria reviewed recommendations and neurology note continue to monitor for clots overnight, potential discharge after voiding trial tomorrow #Atrial fibrillation with history of a Watchman procedure 01/2024 also appears to have a loop recorder continue propranolol for tremor and Toprol-XL for rate control DAPT has been held for procedures and hematuria I completed an extensive chart review of recent hospitalist discharge summaries and H&P's, cardiology notes, pharmacy database. Plan going forward from [facility] following watchman was to not be on anticoagulation and continue DAPT which was documented in last cardiology clinic note 04/02/2024.. When he was discharged 03/29 of this year he was not on apixaban. On 04/01 he self reported apixaban in a transitional care note. Around this time 04/05 he had a new prescription from cardiology Deuce Puente to resume apixaban. When admitted 04/09 he was on apixaban and this was continued through the present. Roel states that the apixaban was restarted because his "hematocrit was high" however his hematocrit has never been elevated and this does not really make sense. Apixaban held for now and will discuss further with Deuce Puente who was the prescriber. #Acute blood loss anemia - Hg decreased from 10-->8.5 since mid April, related to hematuria -iron supplement at discharge q48h follow up with PCP for repeat Hg and iron panel #Panhypopituitarism, typically sees Dr. Voss Takes desmopressin 0.4 p.o. twice daily Adrenal insufficiency treated with hydrocortisone 20 mg in the morning 10 mg at 2 PM Acquired hypothyroidism with levothyroxine 150 mcg a day Hypogonadism treated with testosterone to 20.25 mg / 1.25 g gel 2 pumps topically every afternoon - stable, continue these medications #COPD At baseline continue duonebs scheuled and prn #Diabetes patient is on metformin, glargine and monjouro. He is on lisinopril for renal protective effects-glycemic consult #History of seizures and also PNES - reviewed last note by Dr. 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 No recurrence at this point. Better to avoid IV BZD with PNES, however, difficult to do in practice with epileptic seizure history remains on lacosamide Keppra and Depakote #migraine headache - botox and nurtec #Bipolar disorder continues on Abilify lithium mirtazapine prazosin and propranolol Effexor trazodone typically followed by Dr. Berry -lithium level was 0.6 #Chronic low back pain -duloxetine -oxycodone IR as per palliative care management DVT prevention is Eliquis therapy - held last dose this AM DNR/DNI Admission and Anticipated Discharge Date Admission Date: May 13, 2025 Subjective urine still pink in Welsh though translucent, he reports that it required hand irrigation for clots this morning no shortness of breath no chest pain or abdominal pain is chronic pain is a little better controlled on current regimen palliative care when queried he says that the Eliquis was restarted by Deuce Puente in March because "my hematocrit was high" and because of his A-fib Physical Exam 2 Physical Exam: Last 24h vitals reviewed GEN: no acute distress, sitting in bed HEENT: pupils equal, sclerae anicteric, moist MM RESP: normal WOB, CTAB CV: reg no mrg ABD: soft/nt/nd +BT : Roddy-Aid pink urine without any visible clots SKIN: warm and dry, no generalized rashes lower extremities warm and well-perfused no edema NEURO: AOx person, place, and situation. Face symmetric, speech normal, moves 4 ext spontaneously and equally Results & Data Results & Data Vital Signs (Past 12 Hours) Vital Signs Temp Pulse Pulse Resp BP Pulse Ox O2 Del Method 05/16/25 15:06 36.8 C 76 20 130/89 98 Room Air 05/16/25 14:20 81 05/16/25 11:00 36.8 C 74 20 131/79 94 Nasal Cannula 05/16/25 09:49 Nasal Cannula 05/16/25 09:45 71 05/16/25 07:50 36.5 C 75 18 114/69 96 Nasal Cannula 05/16/25 07:17 69 18 98 Nasal Cannula O2 Flow Rate 05/16/25 15:06 05/16/25 14:20 05/16/25 11:00 2 05/16/25 09:49 2 05/16/25 09:45 05/16/25 07:50 2 05/16/25 07:17 3 Laboratory Results 05/16/25 08:43 05/16/25 08:43 PG Care Time/CCT Total # of Minutes Spent Total Time Spent with Patient: I personally spent: 55 minutes today on clinical care activities including: reviewing chart notes and vital signs extensive review of old charts in [facility] regarding cardiology/apixaban and neurological history reviewing labs discussion with director of critical care examining and counseling the patient counseling the patient's family writing orders documentation Coding Level of Care Code 07019 SUB INP/OBS CARE 3/50MIN Diagnoses Kidney stones N20.0 Panhypopituitarism E23.0 Atrial fibrillation I48.91 Atrial fibrillation type: unspecified Psychogenic nonepileptic seizure F44.5 Diabetes E11.9 Bipolar 1 disorder F31.9 (3) Atrial fibrillation Atrial fibrillation type: unspecified Qualified Code(s): I48.91 - Unspecified atrial fibrillation
[2025-05-17 06:26] LABS: Hematocrit (blood only) 26.4 % (42.0-52.0); Hemoglobin 8.4 g/dl (14.0-18.0); Mean Corpuscular Hemoglobin 28.4 pg (25.0-34.0); Mean Corpuscular Hgb Conc 31.8 g/dL (32.0-36.0); Mean Corpuscular Volume 89.2 fL (80.0-100.0); Mean Platelet Volume 8.3 fL (9.4-12.4); Platelet Count 227 K/uL (130-400); RDW Coefficient of Variation 13.9 % (11.5-14.5); RDW Standard Deviation 44.6 fL (36.4-46.3); Red Blood Count 2.96 M/uL (4.70-6.10); White Blood Count 14.08 K/ul (4.8-10.8)
[2025-05-17 06:50] LABS: BUN Creatinine Ratio 6.7 (10-20); Calcium 8.7 mg/dl (8.6-10.3); Creatinine Clr Calc Pharmacy 102.2 ml/min; Potassium 3.6 mmol/L (3.5-5.1)
--- NOTE | 2025-05-17 08:17 | Urology Progress Note ---
Date of Service May 17, 2025 Assessment & Plan (1) Abdominal pain: (2) Kidney stones: (3) Ureteral stent present: Plan POD #3 s/p cystoscopy and bilateral ureteral stent removal. He is afebrile, hemodynamically stable. Labs today - WBCs 14.08, Hemoglobin 8.4, Creatinine 1.05. Urine culture was negative. Welsh intact and draining adequately - urine is light red without clot. Okay to remove catheter and monitor for void. Bladder scan as needed. Continue supportive care and pain management as needed. Continue to trend labs. Urology will follow along, please call with any questions/concerns. Attending note: Patient independently assessed, examined, interviewed, and evaluated. As mentioned above, patient had episode earlier in the day with fall and significant injury. Had struck face and head. Patient is resting comfortably at this point. Did respond to questions appropriately. Met once again with patient's and family. Note was updated, otherwise agree with note as above. Patient's vitals and labs were all reviewed. Pertinent values in the HPI and plan section. Vitals were reviewed. Discussed findings extensively with patient and family. Reviewed with nurse practitioner as well as consulting physicians/team. Discussed patient's current diagnosis as well as concerns and issues. Since catheter was removed patient has been able to void. Has fairly clear urine. Has not had severe episodes of pain or discomfort. Is largely comp laining of pain around the face and head secondary to the fall and injury. Patient's other major concern is being able to be discharged soon. With the fall is uncertain when he will be cleared for discharge. Will defer to the primary team/ hospitalist for finalizing that plan. Did discuss options and plans for reevaluation. Patient has both stents out. Most recent imaging showed no residual stone. Patient is now voiding without major issue. From a standpoint has stabilized significantly. Was having significant flank and back pain however this is now been decreased but may be likely due to the increased pain and discomfort from his recent injury. Reviewed different options moving forward. Will need follow-up in the office. Will plan to follow-up in approximately 4 to 8 weeks for repeat imaging with [facility] team. Will plan to coordinate. While patient is still admitted we will continue to monitor patient. If any major changes development of significant retention significant QUENTIN or bleeding or development of severe pain or nausea or vomiting can reassess options for repeat imaging. Admission and Anticipated Discharge Date Admission Date: May 13, 2025 Subjective Patient seen at bedside today Awake and resting in bed on arrival No acute distress Welsh draining thin light red urine without clot He would like to do a void trial this morning Still with reports of pelvic pain No fevers Attending update: Patient had episode earlier in the day in the bathroom when trying to use the facilities. Patient fell and struck face and head on the commode and floor. Patient was assessed. Has significant injury of the face from fall. Patient and family had both stated that they were hoping to go home tomorrow but with the recent episode and fall he will that he will likely stay Review of Systems Constitutional: as per Subjective / HPI Genitourinary: + as per Subjective / HPI Physical Exam Physical Exam: Inspection of face shows recent trauma from fall today. Has ecchymosis noted changes along the forehead and around the right eye. No significant pain. Constitutional: no acute distress Respiratory: no respiratory distress and no labored breathing Neurologic: moves all extremities and awake Psychiatric: A+Ox3, euthymic affect Genitourinary: Welsh intact and draining with hematuria As of 17: 13 the catheter had been removed earlier in the day and patient has since voided. Results & Data Vital Signs (Past 12 Hours) Vital Signs Temp Pulse Pulse Resp BP Pulse Ox O2 Del Method 05/17/25 07:37 36.7 C 70 20 124/65 98 Nasal Cannula 05/17/25 06:49 66 18 96 Nasal Cannula 05/17/25 03:13 36.5 C 78 12 166/71 H 94 Nasal Cannula 05/16/25 22:36 36.5 C 81 16 145/87 H 95 Nasal Cannula 05/16/25 21:45 78 O2 Flow Rate 05/17/25 07:37 2 05/17/25 06:49 2 05/17/25 03:13 2 05/16/25 22:36 2 05/16/25 21:45 PG Care Time/CCT Total # of Minutes Spent Total Time Spent with Patient: Total time spent is greater than 50% in coordination of care (as documented) at patient's floor/unit and/or counseling patient: Coding Level of Care Code 27311 SUB INP/OBS CARE 3/50MIN Diagnoses Abdominal pain R10.9 Abdominal location: unspecified location Kidney stones N20.0 Ureteral stent present Z96.0 (1) Abdominal pain Abdominal location: unspecified location Qualified Code(s): R10.9 - Unspecified abdominal pain
--- NOTE | 2025-05-17 11:19 | Palliative Care Progress Note ---
Date of Service May 17, 2025 Assessment & Plan (1) Palliative care by specialist: Plan: Palliative care will continue to follow for ongoing symptom management and pt / family support. Pt will continue to follow with out patient palliative care clinic for ongoing pain management after discharge. (2) Back pain at L4-L5 level: (3) Generalized pain: Plan: Today, 05/17: Pt states that pain well managed with OxyIr 15mg PRN; he has not required any morphine over previous 24hrs. He has taken th eOxrIR only 4 times over previous 24hrs and states he slept well and feels "good this morning". Patient agreeable with plan for pt to follow up with Dr Lindo (palliative outpt clinic) in 2-3 weeks. Discontinue PRN morphine Continue OxyIR to 15mg PO q4h prn for moderate/severe pain - Pt to be discharged on this. 05/16: Seen and followed in clinic by Dr Lindo who just yesterday Increased to OxyIR to 15mg PO q6h prn/Hold for somnolence or RR less than 14; please document RR with each dose administration. Pt shared that his pain is currently well controlled and is happy with current regime. We discussed that he has continued to require frequent morphine IV PRN for breakthrough pain. He shared that the oxyIR offers adequate relief but not lasting long enough. We discussed shortening PRN interval to better manage pain and I encouraged only taking the IV morphine if oxy does not offer adequate relief. Pt agreeable to this and plans to follow in palliative outpt clinic in 2-3 weeks. 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 Significant pain knees, ankles, shoulders (4) Counseling regarding advanced directives and goals of care: Plan: Met with pt and his today for 35min. discussed and reinforced previous conversation about goals of care. Pt states that he wishes to be DNR/DNI, POLST will need to be re-completed prior to discharge. Pt discussed his advanced directive and stated that it is consistent with his expressed wish for DNR/DNI. Pt states that he does wish for ongoing life prolonging treatment at this time, he is happy with current course of treatment and hopeful that we will be able to continue adequate pain management. He reinforced his desire to not be resuscitated nor placed on mechanical ventilation, and if such is required he would opt for transition to comfort directed care. His is supportive with his wishes. From previous palliative care team notes: - He states he is a DNR/DNI. he has completed AD paperwork attesting to this but it is not on file with [facility]. he states last night around 930pm "a natalee with pointy shoes came in to my room to talk about being a DNR and made me sign some pink form." Of note, this presumed POLST cannot be located on the unit -he states he was very upset they did CPR during recent admission and placed him on a vent. I reviewed his hospital chart - in d/w teams he had elected full code. he states he cannot recall those discussions. - I have requested to bring a copy of advanced directive at next visit for inclusion in medical records - he is DNR/DNI, order written - he tells me his suffering seems to be growing. He has more thoughts of "just stopping everything, all the meds all the procedures and just letting nature take its course." has had conversations about this with his , she is supportive. he shares a private home with her, 1 small dog, her 2 adult children (ages 21 and 18yo) and the 21yo son's girlfriend. Her daughter and son's girlfriend do not work. None of them contribute to household. They do not drive, do not assist patient with his needs, do not transport him to medical appointments. - he is frustrated by recent back and forth admissions, complications and increased pain/colic/now with puentes. Feels much of this has been demoralizing and he feels defeated in the sense of "nothing is working, is this worthwhile anymore?" We discussed the importance to not make major decisions while acutely ill, and agreed to follow up in clinic within 2-3 weeks of dc (5) Therapeutic opioid-induced constipation (OIC): Plan: Discussed with pt the need for preventative bowel regime while taking opioid analgesia. Pt does not currently have issues with constipation, but will require daily preventative bowel regime. Should be dicharged on miralax and senna as preventative for bowel maintenance. Plan as above Admission and Anticipated Discharge Date Admission Date: May 13, 2025 Subjective Assessed pt at bedside, JOSEFA. pt awake and alert and pleasantly communicative. He shared that his pain is well managed at a 3-4::10 scale. Puentes has been removed. No visitors at bedside. Review of Systems Review of Systems: All systems reviewed & are unremarkable except as noted in Subjective Physical Exam Constitutional: no acute distress Respiratory: no respiratory distress and no labored breathing Neurologic: moves all extremities and awake Psychiatric: A+Ox3, euthymic affect Results & Data Vital Signs (Past 12 Hours) Vital Signs Temp Pulse Pulse Resp BP Pulse Ox O2 Del Method 05/17/25 09:39 Nasal Cannula 05/17/25 07:43 70 05/17/25 07:37 36.7 C 70 20 124/65 98 Nasal Cannula 05/17/25 06:49 66 18 96 Nasal Cannula 05/17/25 03:13 36.5 C 78 12 166/71 H 94 Nasal Cannula O2 Flow Rate 05/17/25 09:39 2 05/17/25 07:43 05/17/25 07:37 2 05/17/25 06:49 2 05/17/25 03:13 2 Laboratory Results Abnormal lab results 05/16/25 05/16/25 05/17/25 Range/Units 15:57 20:07 05:43 WBC 14.08 H (4.8-10.8) K/ul RBC 2.96 L (4.70-6.10) M/uL Hgb 8.4 L (14.0-18.0) g/dl Hct 26.4 L (42.0-52.0) % MCHC 31.8 L (32.0-36.0) g/dL MPV 8.3 L (9.4-12.4) fL Carbon Dioxide 35 H (21-32) mmol/L BUN/Creatinine Ratio 6.7 L (10-20) Glucose 116 H (70-99(Fasting)) mg/dl POC Glucose 121 H 140 H (70-99) mg/dl 05/17/25 05/17/25 Range/Units 07:19 11:25 WBC (4.8-10.8) K/ul RBC (4.70-6.10) M/uL Hgb (14.0-18.0) g/dl Hct (42.0-52.0) % MCHC (32.0-36.0) g/dL MPV (9.4-12.4) fL Carbon Dioxide (21-32) mmol/L BUN/Creatinine Ratio (10-20) Glucose (70-99(Fasting)) mg/dl POC Glucose 108 H 117 H (70-99) mg/dl Diagnostic Findings Head CT 05/13/25 13:32 CT head/brain wo con CLINICAL HISTORY: seizure. TECHNIQUE: Multiple axial CT images of the head were obtained without contrast. A dose lowering technique was utilized adhering to the principles of ALARA. CT DOSE: 813.12 mGy.cm COMPARISON: 03/27/2025 FINDINGS: 6 cm arachnoid cyst versus patrick cisterna magna again seen posterior aspect of the posterior cranial fossa. No intracranial hemorrhage seen. No mass effect, midline shift, or hydrocephalus. No skull fracture seen. Visualized paranasal sinuses and mastoid air cells are clear. IMPRESSION: No acute findings. ACT 112: Negative or not required by law. The above report was generated using voice recognition software. It may contain grammatical, syntax or spelling errors. Electronically signed by: Keon Crump M.D. 05/13/2025 2:08 PM KUB X-Ray 05/13/25 13:32 KUB HISTORY: abd pain COMPARISON STUDY: 05/07/2025 FINDINGS: Bilateral ureteral stents appear well-positioned. There is mild retained stool. No bowel obstruction seen. No gross free air. IMPRESSION: No acute findings. ACT 112: Negative or not required by law. The above report was generated using voice recognition software. It may contain grammatical, syntax or spelling errors. Electronically signed by: Keon Crump M.D. 05/13/2025 2:56 PM Abdomen/Pelvis CT 05/13/25 15:26 EXAMINATION: CT of the abdomen and pelvis performed without contrast TECHNIQUE: Helical CT images from the lung bases through the symphysis pubis were obtained without contrast. Coronal and sagittal reformatted images were generated at a workstation for further assessment. Dose reduction techniques were achieved by using automatic exposure control and/or adjustment of mA and/or kV according to patient size and/or use of iterative reconstruction technique. COMPARISON: 04/06/2024 HISTORY: Abdominal pain FINDINGS: Lower chest: No consolidation. No pleural effusion or pneumothorax. Liver: No suspicious liver lesions. Gallbladder: No gallstones. No evidence of acute cholecystitis. Spleen: Normal size. Pancreas: No suspicious pancreatic lesions. The pancreatic duct is not dilated. Adrenal glands: No adrenal nodules. Kidneys: No hydronephrosis or obstructing renal stones. Bilateral nephroureteral stents. Bladder / Pelvic organs: Unremarkable. Bowel: No bowel obstruction. No abnormal bowel wall thickening. The appendix is unremarkable. Lymph nodes: No retroperitoneal, mesenteric, or pelvic lymphadenopathy. Peritoneum / Retroperitoneum: A small area of fluid in the left lower quadrant measuring 3 cm in diameter is seen and new from prior. Vessels: No infrarenal aortic aneurysm. Bones and soft tissues: No suspicious lesion in the bones. IMPRESSION: Bilateral nephroureteral stents, appear unremarkable. A small area of fluid in the left lower quadrant measuring 3 cm in diameter is seen and new from prior. No other acute finding. Electronically signed by Glynn Nguyen 05-13-2025 4:16 PM Retrograde Pyelogram 05/14/25 00:00 FL retrograde includes kub CLINICAL HISTORY: B/L RETROGRADES COMPARISON STUDY: None FLUOROSCOPY TIME: 16 FLUOROSCOPY IMAGES: 6 EXPOSURE DOSE: 8 mGy FINDINGS: Fluoroscopy was provided for urologic procedure. IMPRESSION: Intraoperative fluoroscopy. ACT 112: Negative or not required by law. Electronically signed by: Keon Crump M.D. 05/14/2025 11:10 AM Medications Administered Current Inpatient Medications Albuterol (Albut/Ipratrop 3mg/0.5mg Neb 3 Ml Vial) 3 ml INH QID PRN; Protocol PRN Reason: wheezing Stop: 06/12/25 20:32 Aripiprazole (Aripiprazole 5 Mg Tab) 5 mg PO QAM [facility] Stop: 06/13/25 08:59 Last Admin: 05/17/25 08:15 Dose: 5 mg Bisacodyl (Bisacodyl 10 Mg Supp) 10 mg [place] DAILY PRN PRN Reason: Constipation Stop: 06/15/25 09:22 Budesonide (Budesonide 0.5 Mg/2 Ml Vial (Pulmicort)) 0.5 mg INH QPM [facility] Stop: 06/12/25 20:59 Last Admin: 05/16/25 19:13 Dose: 0.5 mg Bumetanide (Bumetanide 1 Mg Tab) 1 mg PO QAM [facility] Stop: 06/13/25 08:59 Last Admin: 05/17/25 08:16 Dose: 1 mg Desmopressin Acetate (Desmopressin Acetate 0.1 Mg Tab) 0.4 mg PO BID [facility] Stop: 06/12/25 20:59 Last Admin: 05/17/25 08:16 Dose: 0.4 mg Dextrose (Dextrose 50% 50 Ml Syringe) 25 - 50 ml IV UD PRN; Protocol PRN Reason: Hypoglycemia Protocol Stop: 06/12/25 18:44 Divalproex Sodium (Divalproex Delay Release 500 Mg Tab) 1,000 mg PO QAM [facility] Stop: 06/13/25 08:59 Last Admin: 05/17/25 08:16 Dose: 1,000 mg Duloxetine HCl (Duloxetine Hcl 30 Mg Cap) 30 mg PO HS [facility] Stop: 06/12/25 20:59 Last Admin: 05/16/25 20:25 Dose: 30 mg Duloxetine HCl (Duloxetine Hcl 60 Mg Cap) 60 mg PO QAM [facility] Stop: 06/13/25 08:59 Last Admin: 05/17/25 08:17 Dose: 60 mg Famotidine (Famotidine 20 Mg Tab) 20 mg PO QAM [facility] Stop: 06/13/25 08:59 Last Admin: 05/17/25 08:17 Dose: 20 mg Ferrous Sulfate (Ferrous Sulfate 325 Mg Tab) 325 mg PO Q2D [facility] Stop: 06/13/25 08:59 Last Admin: 05/16/25 08:17 Dose: 325 mg Fluticasone Propionate (Fluticasone Propionate Na Spr 16 Gm Btl) 1 sprays NA HS PRN PRN Reason: allergy symptoms Stop: 06/12/25 20:32 Formoterol Fumarate (Formoterol 20 Mcg/2 Ml Vial) 20 mcg INH BIDR [facility] Stop: 06/13/25 06:59 Last Admin: 05/17/25 06:49 Dose: 20 mcg Glucagon (Glucagon For Inj 1 Mg Vial) 1 mg SQ UD PRN; Protocol PRN Reason: Hypoglycemia Protocol Stop: 06/12/25 18:44 Glucose (Glucose 40% Gel 15 Gm Tube) 15 - 30 gm PO UD PRN; Protocol PRN Reason: Hypoglycemia Protocol Stop: 06/12/25 18:44 Glucose (Glucose 10 Tab/Tube) 4 - 8 tab PO UD PRN; Protocol PRN Reason: Hypoglycemia Protocol Stop: 06/12/25 18:44 Hydrocortisone (Hydrocortisone 10 Mg Tab) 20 mg PO QAM [facility] Stop: 06/13/25 08:59 Last Admin: 05/17/25 08:17 Dose: 20 mg Hydrocortisone (Hydrocortisone 10 Mg Tab) 10 mg PO HS [facility] Stop: 06/12/25 21:14 Last Admin: 05/16/25 20:24 Dose: 10 mg Ceftriaxone Sodium (Rocephin) 2,000 mg in 50 mls @ 100 mls/hr IV Q24H [facility] Stop: 05/23/25 15:59 Last Infusion: 05/16/25 19:06 Dose: Infused Insulin Aspart (Insulin Aspart Per Unit Charge) 0 units SC [facility] Stop: 06/13/25 11:44 Last Admin: 05/17/25 12:25 Dose: 4 units Insulin Glargine (Lantus Per Unit Charge) 0 units SC [facility]; Protocol Stop: 06/16/25 20:59 Lacosamide (Lacosamide 50 Mg Tablet) 150 mg PO BID [facility] Stop: 06/12/25 20:59 Last Admin: 05/17/25 08:17 Dose: 150 mg Levetiracetam (Levetiracetam 500 Mg Tab) 1,000 mg PO BID [facility] Stop: 06/12/25 21:14 Last Admin: 05/17/25 08:17 Dose: 1,000 mg Levothyroxine Sodium (Levothyroxine Sodium 150 Mcg Tablet) 150 mcg PO DAILYBB [facility] Stop: 06/13/25 06:29 Last Admin: 05/17/25 05:40 Dose: 150 mcg Lisinopril (Lisinopril 40 Mg Tab) 40 mg PO QAM [facility] Stop: 06/13/25 08:59 Last Admin: 05/17/25 08:18 Dose: 40 mg [place] Carbonate ([place] Carbonate 300 Mg Tab) 300 mg PO AMHS [facility] Stop: 06/12/25 20:59 Last Admin: 05/17/25 08:18 Dose: 300 mg Lorazepam (Lorazepam 0.5 Mg Tab) 0.5 mg PO DAILY PRN PRN Reason: Seizure Activity Stop: 06/12/25 20:32 Lorazepam (Lorazepam 2 Mg/1 Ml Vial) 4 mg IV Q2H PRN PRN Reason: seizure Stop: 06/13/25 12:33 Magnesium Oxide (Magnesium Oxide 400 Mg Tab) 400 mg PO DAILY [facility] Stop: 06/13/25 08:59 Last Admin: 05/17/25 08:18 Dose: 400 mg Metoprolol Succinate (Metoprolol Succ 25mg Ext Rel Tab) 25 mg PO HS [facility] Stop: 06/12/25 20:59 Last Admin: 05/16/25 20:25 Dose: 25 mg Mirtazapine (Mirtazapine Tab 15 Mg Tab) 30 mg PO [facility] Stop: 06/12/25 20:59 Last Admin: 05/16/25 20:24 Dose: 30 mg Miscellaneous (Carbohydrates For Hypoglycemia ) 15 - 30 gm PO UD PRN PRN Reason: Hypoglycemia Treatment Stop: 06/12/25 18:44 Miscellaneous Information (Pharmacy Glycemic Mgmt Consult) 1 each N/A UD PRN; Protocol PRN Reason: Consult Stop: 06/12/25 17:40 Ondansetron HCl (Ondansetron Inj 2 Mg/Ml 2 Ml Vial) 4 mg IV Q6H PRN PRN Reason: Nausea Stop: 06/12/25 20:32 Last Admin: 05/14/25 19:45 Dose: 4 mg Oxybutynin Chloride (Oxybutynin Chloride Xl 5 Mg Tabcr) [facility] Stop: 06/13/25 08:59 Last Admin: 05/17/25 08:18 Dose: 5 mg Oxycodone HCl (Oxycodone Hcl Ir 5 Mg Tab (Immediate Release)) 15 mg PO Q4H PRN PRN Reason: Moderate Pain 4-6/10 Stop: 05/29/25 10:41 Last Admin: 05/17/25 12:24 Dose: 15 mg Pantoprazole Sodium (Pantoprazole 40 Mg Tab) 40 mg PO BID [facility] Stop: 06/12/25 20:59 Last Admin: 05/17/25 08:18 Dose: 40 mg Polyethylene Glycol (Polyethylene (Miralax) 17 Gm Pack) 17 gm PO BID PRN PRN Reason: Constipation Stop: 06/15/25 09:22 Last Admin: 05/17/25 05:40 Dose: 17 gm Potassium Chloride (Potassium Chloride 10 Meq Tabcr) 10 meq PO QPM [facility] Stop: 06/12/25 20:59 Last Admin: 05/16/25 20:25 Dose: 10 meq Prazosin HCl (Prazosin Hcl 1 Mg Cap) 5 mg PO HS [facility] Stop: 06/12/25 20:59 Last Admin: 05/16/25 20:26 Dose: 5 mg Propranolol HCl (Propranolol Hcl 60 Mg [place]) 120 mg PO HS [facility] Stop: 06/12/25 20:59 Last Admin: 05/16/25 20:25 Dose: 120 mg Quetiapine Fumarate (Quetiapine Fumarate 50 Mg Tabcr) 50 mg PO QAM [facility] Stop: 06/13/25 08:59 Last Admin: 05/17/25 08:19 Dose: 50 mg Tamsulosin HCl (Tamsulosin Hcl 0.4 Mg Cap) 0.4 mg PO QAM [facility] Stop: 06/13/25 08:59 Last Admin: 05/17/25 08:19 Dose: 0.4 mg Trazodone HCl (Trazodone Hcl 100 Mg Tab) 100 mg PO [facility] Stop: 06/12/25 20:59 Last Admin: 05/16/25 20:26 Dose: 100 mg Umeclidinium [place] (Umeclidinium [place] 62.5mcg/Blister 7 Puffs/Inhaler) 1 puffs INH DAILY [facility] Stop: 06/13/25 08:59 Last Admin: 05/17/25 08:19 Dose: 1 puffs Venlafaxine HCl (Venlafaxine Hcl Xr 75 Mg Capxr) 75 mg PO QAM [facility] Stop: 06/13/25 08:59 Last Admin: 05/17/25 08:19 Dose: 75 mg Venlafaxine HCl (Venlafaxine Hcl Xr 150 Mg Capxr) 150 mg PO QAM [facility] Stop: 06/13/25 08:59 Last Admin: 05/17/25 08:19 Dose: 150 mg Vitamin B Complex (Vitamin B Complex Tab) 1 tab PO QAM [facility] Stop: 06/13/25 08:59 Last Admin: 05/17/25 08:19 Dose: 1 tab Vitamin D (Cholecalciferol 25 Mcg (1000 Units) Tab) 50 mcg PO QPM [facility] Stop: 06/12/25 20:59 Last Admin: 05/16/25 20:24 Dose: 50 mcg PG Care Time/CCT Total # of Minutes Spent Total Time Spent with Patient: Total time spent is greater than 50% in coordination of care (as documented) at patient's floor/unit and/or counseling patient: Coding [place] [address] SUB INP/OBS CARE 2/35MIN Patient Type Established History Problem Focused Exam Problem Focused Medical Decision Making Low Complexity Diagnoses Palliative care by specialist Z51.5 Back pain at L4-L5 level M54.50 Generalized pain R52 Counseling regarding advanced directives and goals of care Z71.89 Therapeutic opioid-induced constipation (OIC) K59.03; [id number]
[2025-05-17] MEDS: LORazepam 2 MG/1 ML VIAL IV STA (14:05)
--- NOTE | 2025-05-17 14:31 | CT Scan Report ---
CT head/brain wo con CLINICAL HISTORY: hit head, headache, anticoagulated. TECHNIQUE: Multiple axial CT images of the head were obtained without contrast. A dose lowering tech nique was utilized adhering to the principles of ALARA. CT DOSE: 1562.41 mGy.cm COMPARISON: 05/13/2025 FINDINGS: No intracranial hemorrhage seen. No mass effect, midline shift, or hydrocephalus. Stable 6 cm arachnoid cyst versus patrick cisterna magna at the posterior cranial fossa. No skull fracture seen. Visualized paranasal sinuses and mastoid air cells are clear. IMPRESSION: No acute findings. ACT 112: Negative or not required by law. The above report was generated using voice recognition software. It may contain grammatical, syntax o r spelling errors. Electronically signed by: Keno Crump M.D. 05/17/2025 2:30 PM
--- NOTE | 2025-05-17 15:40 | Pharmacy Report ---
Pharmacy Glycemic Short Note 2 - Date of Service May 17, 2025 - Glycemic Short BSG Results (Last 24 hours): 05/16/25 05/16/25 05/17/25 15:57 20:07 05:43 Glucose 116 H POC Glucose 121 H 140 H 05/17/25 05/17/25 07:19 11:25 Glucose POC Glucose 108 H 117 H OUTPATIENT ANTIDIABETIC REGIMEN: * Lantus 12 units SQ HS * Mounjaro 5mg SQ LACKEY * metformin 1000mg PO BID ASSESSMENT: 05/16: * Anders received 7 units of bolus insulin yesterday * Fasting BSG this AM acceptable, will continue Lantus scale HS if BSGs become elevated * Slight adjustment to NovoLog carbohydrate ratio. Loosen goal range to prevent overcorrection. 05/16 * Anders received a 15 units of insulin yesterday, all were bolus. BSGs were [phone]/dL * Fasting BSG was below goal this morning. Will continue to hold Lantus and will loosen the carb ratio of the bolus insulin. 05/13: * 54-year-old male presenting with abdominal pain with recent ureteral stent placement, possible seizure activity. Pharmacy consulted for glycemic management. Recently admitted, will plan to utilize similar parameters to prior admission. PLAN FOR INPATIENT GLYCEMIC CONTROL: * Hold outpatient oral diabetes medications * Basal insulin * Lantus 0-5 units SQ HS (5 units if BSG greater than 180mg/dL) * Bolus insulin * NovoLog per scale ACHS or Q6hrs while NPO * Goal Range: Low 120 mg/dL - High 180 mg/dL * Correction Factor: 35 mg/dL/unit * Nutritional / Prandial insulin per carb ratio of 1 unit per 15 grams CHO consumed
--- NOTE | 2025-05-17 16:10 | Hospitalist Progress Note ---
Date of Service May 17, 2025 Assessment & Plan (1) Kidney stones: (2) Panhypopituitarism: (3) Atrial fibrillation: (4) Psychogenic nonepileptic seizure: (5) Diabetes: (6) Bipolar 1 disorder: Plan 54-year-old male Re presents after 1 day discharge with abdominal pain with recent ureteral stent placement. Patient reportedly had seizure-like activity en route and has a history of nonepileptic seizures. He was given 6 mg of Versed. Upon awakening after the Versed he continued to have significant intractable pain #Abdominal pain/renal colic Etiology of his pain could be his bilateral ureteral stents, with underlying chronic pain. He underwent cystoscopy and bilateral stent removal. Feeling better, acute on chronic pain improved after adjustment of medications by palliative care hematuria is clearing, no clotting overnight, urology removed Puentes # seizure - had 2 seizure events and quick's assessment and this afternoon during the first 1 he fell and hit his head in the bathroom. I have witnessed the second one. I am unable to definitively determine whether it was seizure or pseudoseizure. He was given lorazepam 2 mg IV and had to head CT which was negative for any acute intracranial changes. His known arachnoid cyst is visible and unchanged. I personally reviewed the CT films and agree with the radiologist report. #History of seizures and also PNES - reviewed last note by Dr. 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 No recurrence at this point. Better to avoid IV BZD with PNES, however, difficult to do in practice with epileptic seizure history remains on lacosamide Keppra and Depakote #Atrial fibrillation with history of a Watchman procedure 01/2024 also appears to have a loop recorder continue propranolol for tremor and Toprol-XL for rate control DAPT has been held for procedures and hematuria - Resume tomorrow if hematuria resolves discussed with outpatient cardiology today and confirmed that he should be on DAPT and he should not also be on apixaban. Apixaban stopped and should not resume after discharge #Acute blood loss anemia - Hg decreased from 10-->8.5 since mid April, related to hematuria -iron supplement at discharge q48h follow up with PCP for repeat Hg and iron panel #Panhypopituitarism, typically sees Dr. Voss Takes desmopressin 0.4 p.o. twice daily Adrenal insufficiency treated with hydrocortisone 20 mg in the morning 10 mg at 2 PM Acquired hypothyroidism with levothyroxine 150 mcg a day Hypogonadism treated with testosterone to 20.25 mg / 1.25 g gel 2 pumps topically every afternoon - stable, continue these medications #COPD At baseline continue duonebs scheuled and prn #Diabetes patient is on metformin, glargine and mounjaro. He is on lisinopril for renal protective effects-glycemic consult - reviewed blood glucose glucoses which are at goal today he has not had any hypoglycemias #migraine headache - botox and nurtec #Bipolar disorder continues on Abilify lithium mirtazapine prazosin and propranolol Effexor trazodone typically followed by Dr. Berry -lithium level was 0.6 #Chronic low back pain -duloxetine -oxycodone IR as per palliative care management with improvement in his pain DVT prevention is Eliquis therapy - based on half-life it is still effectively 50% active today. Start subcu heparin if not able to discharge tomorrow DNR/DNI Admission and Anticipated Discharge Date Admission Date: May 13, 2025 Subjective [place] good this AM. No further clots in urine and no further irrigaton needed. Later AM urology removed puentes catheter. Discussion of discharge tonight or in AM Early afternoon had seizure episode while up in the bathroom, witnessed by RN - had staring followed by tonic-clonic shaking fell and hit forehead on the sink. I saw him few minutes later, stiff lying off kilter on bed, opening eyes and tracking. After being put on bed he had another seizure episode with stiffening and shaking of all 4 limbs. No incontinence or tongue biting. Lasted apx 30 seconds. Soon afterward was verbal again. 2 mg IV lorazepam given and taken to head CT. Physical Exam 2 Physical Exam: Last 24h vitals reviewed GEN: no acute distress, sitting in bed HEENT: pupils equal, sclerae anicteric, moist MM RESP: normal WOB, CTAB CV: reg no mrg ABD: soft/nt/nd +BT : Roddy-Aid pink urine without any visible clots SKIN: warm and dry, no generalized rashes lower extremities warm and well-perfused no edema NEURO: AOx person, place, and situation. Face symmetric, speech normal, moves 4 ext spontaneously and equally Results & Data Results & Data Vital Signs (Past 12 Hours) Vital Signs Temp Pulse Pulse Resp BP Pulse Ox O2 Del Method 05/17/25 15:55 63 05/17/25 13:50 76 15 98 Room Air 05/17/25 12:09 36.8 C 76 17 168/76 H 94 Room Air 05/17/25 09:39 Nasal Cannula 05/17/25 07:43 70 05/17/25 07:37 36.7 C 70 20 124/65 98 Nasal Cannula 05/17/25 06:49 66 18 96 Nasal Cannula O2 Flow Rate FiO2 05/17/25 15:55 05/17/25 13:50 21 05/17/25 12:09 05/17/25 09:39 2 05/17/25 07:43 05/17/25 07:37 2 05/17/25 06:49 2 Laboratory Results 05/17/25 05:43 05/17/25 05:43 PG Care Time/CCT Total # of Minutes Spent Total Time Spent with Patient: Total time spent is greater than 50% in coordination of care (as documented) at patient's floor/unit and/or counseling patient: Coding Level of Care Code 58655 SUB INP/OBS CARE 3/50MIN Diagnoses Kidney stones N20.0 Panhypopituitarism E23.0 Atrial fibrillation I48.91 Atrial fibrillation type: unspecified Psychogenic nonepileptic seizure F44.5 Diabetes E11.9 Bipolar 1 disorder F31.9 (3) Atrial fibrillation Atrial fibrillation type: unspecified Qualified Code(s): I48.91 - Unspecified atrial fibrillation
[2025-05-17] MEDS: LANTUS PER UNIT CHARGE SC SCH (20:12)
[2025-05-18 08:10] VITALS: RESP 20
--- NOTE | 2025-05-18 08:39 | Urology Progress Note ---
Date of Service May 18, 2025 Assessment & Plan (1) Kidney stones: (2) Panhypopituitarism: (3) Atrial fibrillation: (4) Psychogenic nonepileptic seizure: (5) Diabetes: (6) Bipolar 1 disorder: (7) Abdominal pain: (8) Ureteral stent present: Plan POD #4 s/p cystoscopy and bilateral ureteral stent removal. He is afebrile, hemodynamically stable. Had fall yesterday with significant injury of the face. Has recovered from that episode. Patient is currently resting comfortably. Labs have remained stable Welsh removed yesterday without major issue. Patient is voiding well without major concern and no blood. Continue supportive care and pain management as needed. Patient being monitored after episode of pseudoseizure/tremor activity and fall with injury to face. Will defer to hospitalist as far as timing of discharge. Patient is hoping/anticipating discharge soon. Did discuss options for monitoring. Patient's flank and back pain have somewhat improved. Difficult to fully determine as major complaint at this point is the injury from the fall. Otherwise has not had major increase in issues. Has not had complete resolution but is eval voiding on his own. Urology will follow along, please call with any questions/concerns. Reviewed different options moving forward. Will need follow-up in the office. Will plan to follow-up in approximately 4 to 8 weeks for repeat imaging with [facility] team. Will plan to coordinate. While patient is still admitted we will continue to monitor patient. If any major changes development of significant retention significant QUENTIN or bleeding or development of severe pain or nausea or vomiting can reassess options for repeat imaging. Admission and Anticipated Discharge Date Admission Date: May 13, 2025 Subjective Patient seen at bedside today Awake and resting in bed on arrival No acute distress Welsh draining thin light red urine without clot He would like to do a void trial this morning Still with reports of pelvic pain No fevers Patient had episode yesterday in the bathroom when trying to use the facilities. Patient fell and struck face and head on the commode and floor. Patient was assessed by primary team Has significant injury of the face from fall. Patient stated that they were hoping to go home. Review of Systems Review of Systems: All systems reviewed & are unremarkable except as noted in Subjective Physical Exam Physical Exam: Inspection of face shows recent trauma from fall. Has ecchymosis noted, as well as edema/swelling along the forehead and around the right eye. No significant tenderness. Constitutional: no acute distress Respiratory: no respiratory distress and no labored breathing Neurologic: moves all extremities and awake Psychiatric: A+Ox3, euthymic affect Genitourinary: Patient voiding spontaneously with no hematuria. Clear yellow urine in the bedside urinal. Results & Data Vital Signs (Past 12 Hours) Vital Signs Temp Pulse Pulse Resp BP Pulse Ox O2 Del Method 05/18/25 08:09 36.6 C 77 20 135/73 96 Room Air 05/18/25 08:00 74 05/18/25 07:10 68 18 97 Room Air 05/18/25 03:53 36.7 C 76 21 149/71 H 96 Room Air 05/17/25 22:28 36.5 C 85 18 129/77 95 Room Air PG Care Time/CCT Total # of Minutes Spent Total Time Spent with Patient: Total time spent is greater than 50% in coordination of care (as documented) at patient's floor/unit and/or counseling patient: Coding Level of Care Code 68243 SUB INP/OBS CARE 3/50MIN Diagnoses Kidney stones N20.0 Panhypopituitarism E23.0 Atrial fibrillation I48.91 Atrial fibrillation type: unspecified Psychogenic nonepileptic seizure F44.5 Diabetes E11.9 Bipolar 1 disorder F31.9 Abdominal pain R10.9 Abdominal location: unspecified location Ureteral stent present Z96.0 (3) Atrial fibrillation Atrial fibrillation type: unspecified Qualified Code(s): I48.91 - Unspecified atrial fibrillation (7) Abdominal pain Abdominal location: unspecified location Qualified Code(s): R10.9 - Unspecified abdominal pain
[2025-05-18 10:52] VITALS: PULSE 84; TEMP 98.2; O2SAT 93
[2025-05-18 11:13] VITALS: BP 160/87
--- NOTE | 2025-05-18 16:36 | Discharge Summary ---
Discharge Summary Date of Service May 18, 2025 Principal Dx & Hospital Course #1 = Principal Diagnosis (1) Kidney stones: (2) Panhypopituitarism: (3) Atrial fibrillation: (4) Psychogenic nonepileptic seizure: (5) Diabetes: (6) Bipolar 1 disorder: Plan 54-year-old male readmitted with abdominal pain after recent ureteral stent placement. Reportedly had seizure-like activity en route and has a history of nonepileptic and epileptic seizures. He was given 6 mg of Versed. Upon awakening after the Versed he continued to have significant intractable pain #Abdominal pain/renal colic Etiology of his pain his bilateral ureteral stents, with underlying chronic pain. He underwent cystoscopy and bilateral stent removal. Feeling better, acute on chronic pain improved after adjustment of medications by palliative care hematuria is virtually cleared, no clotting overnight, urology removed Puentes yesterday and voiding spontaneously - follow-up with urology as scheduled # seizure - had 2 seizure events successively yesterday afternoon - during the first 1 he fell and hit his head in the bathroom. I witnessed the second one. I am unable to definitively determine whether it was seizure or pseudoseizure. It was brief <30 sec, had tonic-clonic stiffening of 4 extremities, no tongue biting or incontinence, seemed woozy for a minute afterward but quickly was verbal again. He was given lorazepam 2 mg IV and had head CT which was negative for any acute intracranial changes. His known arachnoid cyst is visible and unchanged. I personally reviewed the CT films and agree with the radiologist report. #History of seizures and also PNES - reviewed last note by Dr. Orodnez - recently has had PNES and unable to prove any recent epileptic seizures seizure at presentation and on 05/17 this hospitalization was treated with IV BZD. No recurrence at this point. Better to avoid IV BZD with PNES, however, difficult to do in practice with epileptic seizure history remains on lacosamide Keppra and Depakote #Atrial fibrillation with history of a Watchman procedure 01/2024 also appears to have a loop recorder continue propranolol for tremor and Toprol-XL for rate control DAPT has been held for procedures and hematuria - Resume tomorrow if hematuria resolves discussed with outpatient cardiology today and confirmed that he should be on DAPT and he should not also be on apixaban. Apixaban stopped, which helped resolve the hematuria #Acute blood loss anemia - Hg decreased from 10-->8.5 since mid April, related to hematuria -continue iron supplement follow up with PCP for repeat Hg and iron panel #Panhypopituitarism, typically sees Dr. Voss Takes desmopressin 0.4 p.o. twice daily Adrenal insufficiency treated with hydrocortisone 20 mg in the morning 10 mg at 2 PM Acquired hypothyroidism with levothyroxine 150 mcg a day Hypogonadism treated with testosterone to 20.25 mg / 1.25 g gel 2 pumps topically every afternoon - stable, continue these medications #COPD At baseline continue duonebs scheuled and prn #Diabetes - resume metformin, glargine and mounjaro. He is on lisinopril for renal protective effects #migraine headache - botox and nurtec #Bipolar disorder continues on Abilify lithium mirtazapine prazosin and propranolol Effexor trazodone typically followed by Dr. Berry -lithium level was 0.6 #Chronic low back pain -duloxetine -changed from percocet to 15 mg oxycodone IR as per palliative care management with improvement in his pain. I filled Rx for seven days supply, has been taking round the clock in hospital. I asked him to please contact Dr. Natalie ramsey's office this week to arrange refills. He will have appt with her in 2-3 weeks. Instructed on bowel regimen. Gave Rx for intranasal naloxone. DNR/DNI Notes For Next Care Provider Medication Changes From Visit percocet changed to oxycodone IR at increased dose per Palliative Care apixaban STOPPED. he has had Watchman procedure and does not need to be on anticoagulation. Discussed with cardiology. Continued DAPT Admission HPI Per Admitting Provider 54-year-old male with a past medical history of recent bilateral ureteral stent placed 07 May who was discharged on 12 May. Patient comes in with abdominal pain seizure-like activity en route receiving 6 mg of Versed. History of A-fib on Eliquis despite having Watchman procedure in 2023, type 2 diabetes hypertension hyperlipidemia PNES, lumbar stenosis with neurogenic claudication, panhypopituitary chronic kidney disease stage III chronic adrenal insufficiency. Reportedly patient is having significant pain and discomfort Discharge Exam Last 24h vitals reviewed GEN: no acute distress, sitting in bed, awake HEENT: pupils equal, sclerae anicteric, moist MM RESP: normal WOB, CTAB CV: reg no mrg ABD: soft/nt/nd +BT : puentes was removed SKIN: warm and dry, no generalized rashes lower extremities warm and well-perfused no edema NEURO: AOx person, place, and situation. Face symmetric, speech normal, moves 4 ext spontaneously and equally Discharge Plan Discharge Items Patient Disposition: Home - Self-Care Reason For Visit: INTRACTABLE PAIN, SEIZURE DISORDER, AFIB Discharge Diagnosis: urinary stent pain, hematuria, seizure Condition on Discharge: Fair Activity: Resume your previous activity Non-emergency contact: Primary Care Provider and Urologist Call non-emergency contact if: you have any medication questions, your symptoms worsen and you have a fever Follow-up/Referrals: Jen Edmonds PA-C [Physician General Repair Mechanic] - 05/27/25 3:00 pm (Jen is a Physician General Repair Mechanic that works with Dr. Amaral. She will see you for your hospital follow up. Please arrive 15 min. before your scheduled appointment. Thank you!) Elliot Mendoza DO [Physician] - 05/22/25 10:15 am Tahira Watt PA-C [Physician General Repair Mechanic] - 05/29/25 11:00 am Margarette Lindo DNP [Nurse Practitioner] - 05/30/25 10:00 am Diet: Heart Healthy Addtl Attending Provider Instructions: Urinary tract pain - urinary stents were removed Blood in urine - resolving Follow up with Urology STOP Eliquis (apixaban) - you do not need to be on this because you had the Watchman procedure. I confirmed with cardiology. Continue aspirin and plavix Follow up with cardiology Follow up with Dr. Lindo - palliative care -I sent a week supply of the oxycodone. You will need to contact her office this week to arrange refill(s) -I sent a prescription for naloxone - use this in case of overdose and call 911 -keep this medication locked up, where no one can access it including children or visitors -opioids can cause constipation, nausea, itching, sedation and carry risk of addiction. Do not drive or operate heavy machinery For constipation: Miralax 1 capful daily or twice a day as needed Senna tabs 1-2 tabs daily as needed -these are both safe to take intermediate Dulcolax 5-10 mg tab daily as needed if the above meds are ineffective Dulcolax suppository per rectum daily as needed -these are for more severe constipation and are for short term use These medications are all available over the counter at the drugstore It was a pleasure taking care of you in the hospital, Ivana Mahoney MD Pending Studies at Discharge: No Stand-Alone Forms: My [facility], Pain - Opioid Pain Management, Smoking Cessation Medications and DC Order Prescriptions: New oxycodone 5 mg Tablet 15 mg PO Q4H PRN (Reason: pain) Qty: 84 0RF naloxone [Narcan] 4 mg/actuation spray,non-aerosol 1 spray intranasal ONCE PRN (Reason: opioid overdose) Qty: 2 2RF Continued clopidogrel [Plavix] 75 mg tablet 75 mg PO QPM lithium carbonate 300 mg tablet 300 mg PO AMHS fluticasone propionate [Flonase Allergy Relief] 50 mcg/actuation spray,suspension 1 spray intranasal HS PRN (Reason: allergy symptoms) Qty: 16 0RF Rx Instructions: administer into each nostril (DME) insulin syringe-needle U-100 [BD Insulin Syringe Ultra-Fine] 1 mL 30 gauge x 1/2" syringe See Rx Instructions .Route Qty: 300 1RF Rx Instructions: use tid (DME) OneTouch Verio test strips Strip See Rx Instructions .MEDSUPPLY Qty: 150 5RF Rx Instructions: check blood sugars 4 times a day (DME) blood-glucose meter [OneTouch Verio Reflect Meter] Misc See Rx Instructions miscellaneous .MEDSUPPLY Qty: 1 0RF Rx Instructions: As directed (DME) lancets [OneTouch Delica Plus Lancet] 33 gauge misc See Rx Instructions .MEDSUPPLY Qty: 150 5RF Rx Instructions: As directed check blood sugars 4 times a day Botox 200 unit recon soln See Rx Instructions IM .COMPLEX Qty: 1 3RF Rx Instructions: 155 UNITS IM IN THE FACE AND NECK MUSCLES EVERY 12 WEEKS PER MIGRAINE PROTOCOL rosuvastatin 20 mg tablet 20 mg PO QAM Qty: 90 2RF pantoprazole 40 mg tablet,delayed release (DR/EC) 40 mg PO BID Qty: 60 5RF (DME) pen needle, diabetic [BD Vy 2nd Gen Pen Needle] 32 gauge x 5/32" needle See Rx Instructions miscellaneous .MEDSUPPLY Qty: 100 3RF Rx Instructions: inject with a new pen needle daily lorazepam 0.5 mg tablet 0.5 mg PO DAILY PRN (Reason: Seizure Activity) levetiracetam 1,000 mg tablet 1,000 mg PO Q12H Qty: 60 6RF Norditropin FlexPro 5 mg/1.5 mL (3.3 mg/mL) pen injector 0.3 mg SQ QPM Qty: 2 5RF metoprolol succinate 25 mg tablet extended release 24 hr 25 mg PO HS Qty: 90 3RF lacosamide 150 mg tablet 150 mg PO BID Qty: 60 5RF (DME) Oxygen Home Liters Per Minute See Rx Instructions .Route Rx Instructions: 4 L o2 via NC As directed, metformin 1,000 mg tablet 1,000 mg PO BID Qty: 180 3RF Hold Instructions: Per Dr Voss to hold as of 11/23/22 testosterone 20.25 mg/1.25 gram (1.62 %) gel in metered-dose pump 2 pump TOP PM Qty: 75 5RF Rx Instructions: apply 1 pump amount over max area of EACH upper arm and shoulder PDMP Queried ok to fill 03/17/2023 DS cholecalciferol (vitamin D3) 50 mcg (2,000 unit) capsule 50 mcg PO QPM Qty: 90 1RF levothyroxine [Synthroid] 150 mcg tablet 150 mcg PO DAILYBB Qty: 30 5RF (DME) FreeStyle Rosalie 2 Sensor Kit See Rx Instructions .Route Qty: 6 3RF Rx Instructions: Change every 14 days desmopressin 0.2 mg tablet 0.4 mg PO BID Qty: 120 5RF (DME) FreeStyle Rosalie 2 [place] Misc See Rx Instructions .Route Qty: 1 0RF Rx Instructions: Check blood glucose before each meal mirtazapine [Remeron] 30 mg tablet 30 mg PO HS albuterol sulfate [Ventolin HFA] 90 mcg/actuation HFA aerosol inhaler 2 inh inhalation Q6H PRN (Reason: shortness of breath or wheezing) Qty: 6.7 2RF venlafaxine 75 mg capsule,extended release 24hr 75 mg PO QAM Rx Instructions: Take with 150mg cap prazosin 5 mg capsule 5 mg PO HS ramelteon 8 mg tablet 8 mg PO HS (DME) nebulizers [Compact Compressor Nebulizer] Misc See Rx Instructions .Route Qty: 1 0RF Rx Instructions: One compact compressor nebulizer. Use as directed. Please include tubing, mouth piece and cup. ipratropium-albuterol 0.5 mg-3 mg(2.5 mg base)/3 mL solution for nebulization 3 ml inhalation QID PRN (Reason: wheezing) Qty: 90 0RF trazodone 100 mg tablet 100 mg PO HS ondansetron 8 mg tablet,disintegrating 8 mg PO Q8H PRN (Reason: nausea and vomiting) Qty: 30 0RF phenazopyridine [Pyridium] 200 mg tablet 200 mg PO TID Qty: 9 2RF Rx Instructions: Can take three times daily for up to three days; then must give the body a two day break ferrous sulfate 325 mg (65 mg iron) tablet 325 mg PO Q OTHER DAY insulin glargine [Lantus Solostar U-100 Insulin] 100 unit/mL (3 mL) insulin pen 12 unit SUBCUT HS Hold Instructions: Has been on hold for a few weeks per pt Patient Comments: PER PT HE IS TAKING 12 UNITS -CONFIRMED ON 07/19/24 Nurtec ODT 75 mg tablet,disintegrating 75 mg PO DAILY PRN (Reason: Migraine Headache) Qty: 16 6RF magnesium oxide 400 mg (241.3 mg magnesium) tablet 400 mg PO DAILY potassium chloride 10 mEq tablet extended release 10 meq PO QPM propranolol 120 mg capsule,extended release 24hr 120 mg PO HS Spiriva Respimat 2.5 mcg/actuation mist 2 puff inhalation DAILY Qty: 4 4RF sodium chloride 7 % solution for nebulization 1 inh inhalation BID Qty: 240 3RF acetylcysteine 200 mg/mL (20 %) solution 2 ml inhalation BID PRN (Reason: Chest congestion) Qty: 100 6RF dutasteride 0.5 mg capsule 0.5 mg PO QAM Rx Instructions: TAKE 1 CAPSULE BY MOUTH DAILY IN THE MORNING Baqsimi 3 mg/actuation spray,non-aerosol 3 mg intranasal ONCE PRN (Reason: Severe Hypoglycemia) Rx Instructions: for treatment of severe hypoglycemia, second dose may be given if patient does not respond after 15 minutes . Per caregiver, pt has never has to use this medication. bumetanide 1 mg Tablet 1 mg PO QAM Qty: 30 0RF vitamin B complex [Vitamins B Complex] Capsule 1 cap PO QAM Qty: 30 0RF oxybutynin chloride 5 mg tablet extended release 24hr 5 mg PO QAM Rx Instructions: TAKE 1 TABLET BY MOUTH DAILY arformoterol [Brovana] 15 mcg/2 mL solution for nebulization 2 ml inhalation BID venlafaxine 150 mg capsule,extended release 24hr 150 mg PO QAM quetiapine 50 mg tablet extended release 24 hr 50 mg PO QAM nystatin 100,000 unit/gram cream 1 applic topical BID PRN (Reason: Other) formoterol fumarate [Perforomist] 20 mcg/2 mL Solution For Nebulization 20 mcg NEB BIDR Qty: 60 0RF duloxetine 30 mg capsule,delayed release(DR/EC) 30 mg PO HS Qty: 30 0RF tirzepatide 5 mg/0.5 mL pen injector 5 mg subcut WK Rx Instructions: tuesday PER PT "HOLDING DOSE ON 05/05/25 FOR PROCEDURE". aripiprazole 5 mg tablet 5 mg PO QAM divalproex 500 mg tablet,delayed release (DR/EC) 1,000 mg PO QAM famotidine [Acid Crane Ladle Person (famotidine)] 20 mg tablet 20 mg PO QAM budesonide 0.5 mg/2 mL suspension for nebulization 0.5 mg inhalation QPM hydrocortisone 10 mg tablet 10 - 20 mg PO UD Rx Instructions: 2 tabs (20mg) in AM, 1 tab (10mg) in PM lisinopril 40 mg tablet 40 mg PO QAM duloxetine 60 mg capsule,delayed release(DR/EC) 60 mg PO QAM aspirin 81 mg capsule 81 mg PO QPM Discontinued Eliquis 5 mg tablet 5 mg PO Q12H Qty: 180 3RF Hold Instructions: Resume on 05/20/34. Hold aspirin and Plavix in light of maranda hematuria: Resume based on urology recommendations post cystoscopy Reviewed patient's records, no history of PE/DVT and unclear why patient was also getting apixaban when he has a watchman's device Apixaban has been stopped. oxycodone-acetaminophen [Percocet] 5-325 mg tablet 1.5 tab PO Q6H PRN (Reason: pain (scale score 7-10)) Discharge Orders: Discharge Order (Routine); Ordered 05/18/25 Ordered By: Ivana Mahoney Admission Data Admit Date/Time: 05/13/25 17:54 Attending Provider: Ivana Mahoney Admit Provider: Talha Willingham Primary Care Provider: Larry Amaral Other Providers: Talha Willingham; Elliot Mendoza; Margarette Lindo Other Interventions: Discharge Summary Assessment (RN) Last Done: 05/18/25 11:11 Hospital Stay Data Consultations 05/13/25 16:29 ED Decision to Admit Stat 05/13/25 20:33 Consult Urology Routine 05/15/25 10:04 Consult Palliative Care Routine Procedures Performed Operation Date: 05/14/25 09:40 Actual Procedures p Cystoscopy Bilateral Stent Removal, retrograde pyelogram(Bilateral) - Glynn King MD Diagnostic Imagining Performed 05/13/25 13:32 CT head/brain wo con Stat 05/13/25 15:26 CT stones [CT abd pelvis wo con] Stat 05/14/25 [place] retrograde includes kub Routine 05/17/25 13:58 CT head/brain wo con Stat Pending Results Patient Have Any Pending Studies at Discharge: No Discharge Instructions Given to Patient (Per Discharging Provider) Urinary tract pain - urinary stents were removed Blood in urine - resolving Follow up with Urology STOP Eliquis (apixaban) - you do not need to be on this because you had the Watchman procedure. I confirmed with cardiology. Continue aspirin and plavix Follow up with cardiology Follow up with Dr. Lindo - palliative care -I sent a week supply of the oxycodone. You will need to contact her office this week to arrange refill(s) -I sent a prescription for naloxone - use this in case of overdose and call 911 -keep this medication locked up, where no one can access it including children or visitors -opioids can cause constipation, nausea, itching, sedation and carry risk of addiction. Do not drive or operate heavy machinery For constipation: Miralax 1 capful daily or twice a day as needed Senna tabs 1-2 tabs daily as needed -these are both safe to take intermediate Dulcolax 5-10 mg tab daily as needed if the above meds are ineffective Dulcolax suppository per rectum daily as needed -these are for more severe constipation and are for short term use These medications are all available over the counter at the drugstore It was a pleasure taking care of you in the hospital, Ivana Mahoney MD Total Time Total Time Spent Total Time Spent (In Minutes): I personally spent: 35 minutes today on clinical care activities including: reviewing chart notes and vital signs reviewing urology recommendations discussion with bedside nurse examining and counseling the patient writing orders writing prescriptions, discharge instructions documentation Coding Level of Care Code 10081 INP/OBS DISCH >30 MIN Diagnoses Kidney stones N20.0 Panhypopituitarism E23.0 Atrial fibrillation I48.91 Atrial fibrillation type: unspecified Psychogenic nonepileptic seizure F44.5 Diabetes E11.9 Bipolar 1 disorder F31.9
== END 2025-05-18 12:13 | disposition home or self-care (01) | DRG 699 ==
LOC: ED 13:15 → 2S 17:54 → SUATTDRO 17:54 → 2S 20:24
DX: Z91.041 Radiographic dye allergy status; Z79.82 Long term (current) use of aspirin; F31.9 Bipolar disorder, unspecified; E23.0 Hypopituitarism; I48.0 Paroxysmal atrial fibrillation; Z88.0 Allergy status to penicillin; S09.90XA Unspecified injury of head, initial encounter; F44.5 Conversion disorder with seizures or convulsions; N18.30 Chronic kidney disease, stage 3 unspecified; M54.50 Low back pain, unspecified; Z91.018 Allergy to other foods; Z79.02 Long term (current) use of antithrombotics/antiplatelets; Z79.899 Other long term (current) drug therapy; N20.0 Calculus of kidney; I12.9 Hypertensive chronic kidney disease with stage 1 through stage 4 chronic kidney disease, or unspecified chronic kidney disease; T83.84XA Pain due to genitourinary prosthetic devices, implants and grafts, initial encounter; Z79.01 Long term (current) use of anticoagulants; Z79.890 Hormone replacement therapy; M48.062 Spinal stenosis, lumbar region with neurogenic claudication; D62 Acute posthemorrhagic anemia; Z79.4 Long term (current) use of insulin; Z66 Do not resuscitate; Z79.84 Long term (current) use of oral hypoglycemic drugs; E11.22 Type 2 diabetes mellitus with diabetic chronic kidney disease; G89.29 Other chronic pain; G40.909 Epilepsy, unspecified, not intractable, without status epilepticus; Y92.231 Patient bathroom in hospital as the place of occurrence of the external cause; N23 Unspecified renal colic; W01.198A Fall on same level from slipping, tripping and stumbling with subsequent striking against other object, initial encounter; Z88.8 Allergy status to other drugs, medicaments and biological substances; E78.5 Hyperlipidemia, unspecified; J44.9 Chronic obstructive pulmonary disease, unspecified; Z51.5 Encounter for palliative care; E27.40 Unspecified adrenocortical insufficiency

== ENCOUNTER 2025-05-25 12:10 | Inpatient (IN) ==
[2025-05-25] MEDS: SODIUM CHLORIDE 0.9% 1,000 ML IV SCH ×2 (12:30→14:02)
[2025-05-25] MEDS: ONDANSETRON INJ 2 MG/ML 2 ML VIAL ONE (12:35)
[2025-05-25 12:51] LABS: Hematocrit (blood only) 26.6 % (42.0-52.0); Hemoglobin 9.0 g/dl (14.0-18.0); Immature Granulocytes # (auto) 0.08 K/uL (0.01-0.20); Immature Granulocytes % (auto) 1.2 %; Mean Corpuscular Hemoglobin 28.4 pg (25.0-34.0); Mean Corpuscular Volume 83.9 fL (80.0-100.0); Platelet Count 232 K/uL (130-400); RDW Standard Deviation 45.0 fL (36.4-46.3); Red Blood Count 3.17 M/uL (4.70-6.10); White Blood Count 6.70 K/ul (4.8-10.8)
--- NOTE | 2025-05-25 12:54 | Emergency Department Note ---
Impression & Plan CHI (closed head injury), QUENTIN (acute kidney injury), Dizziness, Hypomagnesemia, Contusion of face ED Provider Note ED Provider Note NAME: LINSEY VIRAMONTES Jr AGE:54 SEX: Male : 1970 ARRIVES VIA: EMS INFORMANT: Patient, EMS ED PROVIDER(s): Tammy Luciano DO CHIEF COMPLAINT: Dizziness, tremors, fall HPI: This is a 54-year-old male brought in by EMS after sustaining a fall at home. Family reported to EMS patient has been dizzy and off balance and had increased tremors recently. Today patient was more symptomatic and fell forward striking his head/face. Family reports no recent change in medications. Patient does have history of seizures but has been taking his medications. EMS reported patient was minimally responsive and route for them. They did place an NPA in order to help maintain his airway and had him on some oxygen as a precaution. First blood pressure for them was reassuring however he then became hypotensive and so an IV and IV fluids were started. They state due to chronic narcotic use they did give the patient a dose of Narcan and he did have an improvement in his respiratory drive and slowly began to awaken by arrival here. I did not notice any seizure activity en route. Patient at this time complains of headache and chest pain. He states he has been taking his medications as prescribed. He states he did recently have a kidney stone and was admitted. He denies any change in urine or stools. PAST MEDICAL HISTORY:See Below PAST SURGICAL HISTORY:See Below FAMILY HISTORY:See Below SOCIAL HISTORY:See Below HOME MEDICATIONS:See Below ALLERGIES:See Below VITALS:See Below PHYSICAL EXAMINATION: Primary Survey Airway: Intact Breathing: Normal, breath sounds equal bilaterally Circulation: Skin warm, distal pulses 2+, capillary refill less than 2 seconds Disability Pupils: Equal and reactive to light, 2 mm, brisk GCS: 15, Motor Function: Moves all extremities. Sensory: No deficits Secondary Survey GENERAL: alert, unwell appearing, well nourished, no distress, non-toxic HEAD: normal cephalic, contusion and laceration noted to left central inferior forehead with small amount of active bleeding, no facial bone tenderness, no midface instability; area of resolving ecchymosis noted to the right periorbital region that EMS reported was from a prior recent fall. EYE EXAM: normal conjunctiva, PERRL and EOM's grossly intact OROPHARYNX: no exudate, no erythema, lips, buccal mucosa, and tongue normal and mucous membranes are dry EARS: TMs clear b/l without hemotympanum NECK: supple, no nuchal rigidity, no adenopathy, non-tender CHEST: stable to compression anteriorly and posteriorly, no crepitus LUNGS: clear to auscultation. Normal chest wall mechanics, no w/r/r HEART: no murmurs, S1 normal and S2 normal ABDOMEN: abdomen soft, non-tender, normo-active bowel sounds, no masses, no rebound or guarding. PELVIS: stable to compression BACK: Back is symmetrical on inspection and there is no deformity, no midline tenderness, no CVA tenderness. UPPER EXTREMITIES: full active and passive range of motion of all joints without tenderness to palpation, no obvious deformities, sensation intact bilaterally, normal pulses bilaterally LOWER EXTREMITIES: full active and passive range of motion of all joints without tenderness to palpation, no obvious deformities, sensation intact bilaterally, normal pulses bilaterally; healing superficial appearing abrasion noted to the left prepatellar region. NEURO EXAM: Normal sensorium, cranial nerves II-XII grossly intact, normal speech, no gross weakness of arms, no gross weakness of legs. GCS: 15. Vital Signs: reviewed and remarkable Differential Diagnosis: ICH, CHI, fracture, contusion, sprain, strain, laceration, abrasions, hemoperitoneum, occult spine injury, acute ligamentous injury, retroperitoneal bleeding, as well as others were considered MEDICAL DECISION MAKING: This is a 54-year-old male brought in by EMS as a trauma alert following fall with obvious facial injury and decreased responsiveness as well as hypotension. Patient with complicated past medical history as well as recent admissions. Patient noted to be somnolent with decreased responsiveness on arrival here, vital signs were improved. Patient did become hypotensive again and additional IV fluids were given. Labs drawn and sent, IV established, EKG and x-rays performed at bedside and interpreted by me and patient monitored on telemetry. He was taken for urgent CT imaging to rule out additional acute traumatic injury. Patient's blood pressure improved with further IV fluids. Due to persistent somnolence he was given an additional dose of IV Narcan with improvement. CT did not reveal any other acutely concerning pathology. Orbital floor fracture was noted however radiology feels this is more likely subacute as patient did have other recent falls. Patient was noted to have seizure-like activity here which family states neurology has told him likely pseudoseizures related to stress. Patient was not given any additional benzodiazepines. Levels of the patient's seizure medications were sent and are still pending. Patient noted to have QUENTIN. Given clinical appearance of dehydration, I suspect patient is not hydrating well enough. Upon arrival with family at bedside they did report the same that he has not been eating and drinking much. Anemia noted however stable compared to prior. They also report he has verbalized passive suicidal statements. They state patient's medications were recently changed and he has been taking. Oxycodone additionally following recent urologic procedure and kidney stones. They state he did take it this morning. I suspect this was contributing to his hypotension and somnolence. Patient was given IV magnesium due to prolonged QTc noted on EKG initially. Ultimately patient found to have hypomagnesemia also. Case discussed with the hospitalist team for additional evaluation and management. Consultation(s): 1501: Discussed with Dr. Benoit. ER Treatment Provided: See below 1402: C-collar removed by me. 1415: I was called urgently to the room due to concern for possible seizure. Nursing staff noted 30 to 45 seconds of seizure-like activity with spontaneous resolution. and sister at bedside state he has been having seizures every other day. They state his neurologist is aware and feels he is likely having pseudoseizures. They admit to recent increased family stress and states he was also recently diagnosed with bladder cancer. They state he has not been eating or drinking very much. He has made passing statements of suicidal ideation. They state he did take his medications this morning but did not have anything to eat or drink. He did take oxycodone this morning additionally. Diagnostics Interpreted By Me: -ECG: Normal sinus at 89, normal axis, normal QRS, prolonged QTc at 511, nonspecific ST/T wave changes -Cardiac Monitoring: An order was placed for continuous cardiac monitoring. The monitor shows a rate of 80 with normal sinus rhythm. -Laboratory studies: As stated above and show below. -Imaging studies: X-ray Chest: A single view study of the chest was reviewed and was negative for cardiomegaly, focal infiltrate, effusion, pulmonary edema, or wide mediastinum. Triage Nursing Note Reviewed Prior/Outside Records Reviewed Critical Care: Critical care of 48 min performed to assess and manage high likelihood of life-threatening trauma, involving labs and imaging performed with assessment to evaluate fall, head injury, hypotension diagnosis with frequent reassessment. This time includes bedside time, treatment discussions with patient/family/consultants, documentation time and excludes procedure time. Past Med/Surg History Problem List (Updated 05/26/25 @ 16:12 by Tammy Luciano, DO) Contusion of face (Acute) Hypomagnesemia (Acute) Opiate dependence Hypotension Toxic metabolic encephalopathy Hyperphosphatemia Hypomagnesemia Hypocalcemia Acute hyponatremia Dizziness (Acute) QUENTIN (acute kidney injury) (Acute) CHI (closed head injury) (Acute) Therapeutic opioid-induced constipation (OIC) Counseling regarding advanced directives and goals of care Generalized pain Bipolar 1 disorder Diabetes Psychogenic nonepileptic seizure Asthma COPD (chronic obstructive pulmonary disease) Intractable back pain (Acute) Encounter for preoperative assessment (Acute) Numbness of right foot Advanced care planning/counseling discussion Palliative care by specialist Back pain at L4-L5 level Bilateral nephrolithiasis (Chronic) Elevated lactic acid level Compartment syndrome of lower extremity Ambulatory dysfunction (Acute) Arthralgia Venous stasis ulcers (Acute) Chronic venous insufficiency (Chronic) Presbyopia of both eyes Epiretinal membrane (ERM) of left eye Ocular hypertension Secondary cataract of left eye with vision obscured Combined form of senile cataract of right eye Abnormal chest CT Demyelinating disease Esophageal dysphagia 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 Current use of proton pump inhibitor Chronic migraine without aura or status migrainosus Anemia (Acute) Ulcerative colitis Mixed hyperlipidemia Lumbar stenosis with neurogenic claudication Arachnoid cyst of posterior cranial fossa Pseudoseizures Idiopathic polyneuropathy Essential tremor Mitral regurgitation Depression Anxiety (Chronic) Medical History Acute flank pain Kidney stones currently causing severe pain History of pneumonia (03/2025) states has been admitted for total of 36 days ytd at [facility] for pneumonia, last was approxl 1 month ago Ocular hypertension Ulcerative colitis Mixed hyperlipidemia Lumbar stenosis with neurogenic claudication Idiopathic polyneuropathy Essential tremor Demyelinating disease Compartment syndrome of lower extremity (02/2025) per hx Chronic venous insufficiency Back pain at L4-L5 level Arthralgia Depression with anxiety Hx of fall (11/2024) History of dysphagia Hematuria On home O2 4 L nc History of recent hospitalization states has been in hospital 36 days this year so far with pneumonia- last was approx 1 month ago Sepsis Pyelonephritis Urinary tract obstruction due to kidney stone Lactic acidosis LPRD (laryngopharyngeal reflux disease) Severe obesity (BMI 35.0-35.9 with comorbidity) Uncontrolled type 2 diabetes mellitus with hyperglycemia Suspect low glycation index meaning his A1c is typically about 2 points lower than what his average glucose would suggest. Hypothyroidism Hypertension Non-occlusive coronary artery disease Acute dehydration hx Witnessed seizure-like activity Nonepileptic episode Chronic narcotic dependence COPD with exacerbation (03/2025) follows with dr. mccarthy (last seen while in hospital at [facility] with pneumonia ~) Anti-cyclic citrullinated peptide antibody positive Restrictive lung disease follows with dr. mccarthy, on O2 4L nc at all times Abnormal PFTs (pulmonary function tests) Bipolar disorder (10/11/22) Obstructive sleep apnea cpap 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 Follows with endocrinology- Secondary adrenal insufficiency Transient alteration of awareness Chronic adrenal insufficiency Leukocytosis Acute asthma exacerbation hx Acute on chronic hypoxic respiratory failure O2 4L nc Migraine Hematoma Growth hormone deficiency Diaphoresis hx Acute hypoxic respiratory failure hx Influenza A (12/2024) hx- Status epilepticus (09/13/24) Knee hemarthrosis, right (09/13/24) Acute on chronic anemia (09/13/24) Acute metabolic encephalopathy (09/13/24) hx Laceration of toe of right foot Closed fracture of right fibula with malunion Right fibular fracture hx Acute on chronic respiratory failure with hypoxia and hypercapnia Shortness of breath only if not wearing oxygen Chronic respiratory failure with hypoxia Obesity CKD (chronic kidney disease), stage III Peripheral edema Atrial fibrillation (02/15/24) no cardioversion- has loop recorder and watchmans device, follows with dr. kilgore (03/2025 while inpt.) Chronic low back pain Panhypopituitarism Lumbosacral radiculopathy Toxic encephalopathy Chest pain hx Acute dyspnea hx Acute CHF hx Hypoglycemia hx Syncope and collapse Reason for loop recorder No recent issues since bed bound from femur fracture in Sep 2022 per patient Internal hemorrhoids Recurrent seizures (05/01/25) goes sometimes months without seizures, then may may have 2 in one day- last seizure- 05/01/25- grand mal, lost control of bowel and bladder- informed neuro, dr. villa- told to stay on meds (last saw dr. villa on tu04/30/25) Pituitary diabetes insipidus Spondylolysis, lumbar region Right lumbar radiculopathy HTN (hypertension) Adrenal insufficiency Pituitary adenoma Hyperactive gag reflex BRCA gene positive tested positive in Aug 2023 [place] Family history of BRCA gene mutation PTSD (post-traumatic stress disorder) Epidural lipomatosis Chronic left sacroiliac pain Benzodiazepine overdose hx Presence of cardiac device Loop recorder > placed at [facility]- last checked fall 2023 Hx of fracture of foot Sep 2022- right > cast since removed > still gets painful Fracture of fibula, right, closed Cerebral concussion May 2023 during seizure > no further issues Orthostatic hypotension Sensorineural hearing loss of both ears Rectal bleeding on occasion History of COVID-19 10/2021 - fatigue; resolved. Mitral valve regurgitation follows with Dr. kilgore Vertigo Lower extremity edema Elevated LFTs Bilateral hand pain Pituitary neoplasm Dx'ed in 2001- s/p surgical resection and XRT Repeat surgery in 2018 secondary to tumor regrowth at [facility] Prostate mass benign Bladder mass benign Surgical History Presence of Watchman left atrial appendage closure device (02/2024) eric History of arthroplasty of left knee (2014) S/P TURP (status post transurethral resection of prostate) [place] of [place] [facility] History of cardiac cath (07/2021) 07/2021 - no stents- no mi - [facility]- follows with dr. kilgore S/P epidural steroid injection History of lithotripsy Status post right foot surgery replaced 5th metatarsal--hardware in place History of bladder surgery remove mass History of prostate surgery (2016) remove mass- not malignant History of colonoscopy History of esophagogastroduodenoscopy (EGD) History of tooth extraction History of wisdom tooth extraction History of brain surgery x2---2004 @ [facility] [place], 2018 @ [facility]--for brain tumors > caused epilepsy Family History (Updated 05/25/25 @ 18:37 by Davy Benoit MD, PhD) Grandmother (Paternal) Family history of diabetes mellitus Aunt Family history of diabetes mellitus Uncle Family history of diabetes mellitus Father , at 85 years of age from dementia. Prostate cancer Heart disease Osteoarthritis Mother , at 84 years of age from acute UT. Cardiac disorder Grandmother (Maternal) Myocardial infarction Other Asthma Cancer Hypertension No family history of adverse response to anesthesia No family history of bleeding disorder Stroke Denies family history of Ovarian cancer Breast cancer Colorectal cancer Social History Smoking Status: Never smoker Tobacco Type: Smokeless Tobacco (Dip or Chew) Second Hand Exposure: No; Do You Dip or Chew Tobacco: Yes; Hx Alcohol Use: No Hx Substance Use: No Preferred Language: Yi Communication Ability: Effective Communication Ability Comment: Unable to obtain due to patient condition. Visual Impairment: Limited Hearing Ability: Normal Certified Social Workers In Health Care Required: No Beliefs That Will Affect Care: None marital status: Single Current Living Situation: Spouse Current Living Situation Comment: and daughter in [place] current occupational status: disabled How many Children do You have: 3 How many Children do You have Comment: able to assist with care if needed Other Information That Helps Us Care for You: No Feels Safe at Home: Yes Safety Concerns: Feels Safe At This Time Childhood Exposure to Second-Hand Smoke: Yes (parents smoked) Diet: regular Diet Comment: going to be starting low carb/low calorie diet. caffeine: No (1/2 20 oz bottle of mountain dew. ) during the past year weight has: increased > 10 lbs Physical Activity Frequency: Daily Physical Activity Frequency Comment: walking, 1.5 miles daily. Seatbelt Use: always Do you think of yourself as: straight/heterosexual Gender Identity: Male Assistive Devices: Oxygen - Continuous and Walker Allergies Allergies Allergy/AdvReac Type Severity Reaction Status Date / Time clindamycin Allergy Intermediate SWELLING Verified 05/20/25 11:34 Iodinated Contrast Media Allergy Intermediate face/eye Verified 05/20/25 11:34 swelling Quinolones Allergy Intermediate HIVES Verified 05/20/25 11:34 tomato AdvReac Unknown swelling Verified 05/20/25 11:34 Home Meds Home Medications Medication Instructions Recorded Confirmed lithium carbonate 300 mg tablet 300 mg PO [facility] 06/04/22 05/25/25 mirtazapine 30 mg tablet (Remeron) 30 mg PO HS 06/23/22 05/25/25 dutasteride 0.5 mg capsule 0.5 mg PO QAM 04/06/24 05/25/25 glucagon 3 mg/actuation nasal 3 mg intranasal ONCE PRN Severe 04/06/24 05/25/25 spray (Baqsimi) Hypoglycemia aripiprazole 5 mg tablet 5 mg PO QAM 05/29/24 05/25/25 insulin glargine 100 unit/mL (3 12 unit subcut HS 07/19/24 05/25/25 mL) subcutaneous pen (Lantus Solostar U-100 Insulin) trazodone 100 mg tablet 100 mg PO HS 10/03/24 05/25/25 lorazepam 0.5 mg tablet 0.5 mg PO DAILY PRN Seizure 11/23/24 05/25/25 Activity ferrous sulfate 325 mg (65 mg 325 mg PO Q OTHER DAY 11/27/24 05/25/25 iron) tablet clopidogrel 75 mg tablet (Plavix) 75 mg PO QPM 12/03/24 05/25/25 arformoterol 15 mcg/2 mL solution 2 ml inhalation BID 01/16/25 05/25/25 for nebulization (Brovana) oxybutynin chloride 5 mg 5 mg PO [facility] 01/16/25 05/25/25 tablet,extended release 24 hr Oxygen Home 01/30/25 05/02/25 magnesium oxide 400 mg (241.3 mg 400 mg PO DAILY 03/01/25 05/25/25 magnesium) tablet potassium chloride 10 mEq 10 meq PO QPM 03/01/25 05/25/25 tablet,extended release nystatin 100,000 unit/gram topical 1 applic topical BID PRN Other 03/19/25 05/25/25 cream quetiapine 50 mg tablet,extended 50 mg PO [facility] 03/19/25 05/25/25 release 24 hr venlafaxine 150 mg 150 mg PO [facility] 03/19/25 05/25/25 capsule,extended release 24 hr propranolol 120 mg capsule,24 120 mg PO HS 03/26/25 05/25/25 hr,extended release prazosin 5 mg capsule 5 mg PO HS 04/05/25 05/25/25 ramelteon 8 mg tablet 8 mg PO HS 04/05/25 05/25/25 venlafaxine 75 mg capsule,extended 75 mg PO QAM 04/05/25 05/25/25 release 24 hr aspirin 81 mg capsule 81 mg PO QPM 05/03/25 05/25/25 budesonide 0.5 mg/2 mL suspension 0.5 mg inhalation QPM 05/03/25 05/25/25 for nebulization divalproex 500 mg tablet,delayed 1,000 mg PO QAM 05/03/25 05/25/25 release duloxetine 60 mg capsule,delayed 60 mg PO QAM 05/03/25 05/25/25 release famotidine 20 mg tablet (Acid 20 mg PO QAM 05/03/25 05/25/25 Hospital Unit Coordinator (famotidine)) hydrocortisone 10 mg tablet 10 - 20 mg PO UD 05/03/25 05/25/25 lisinopril 40 mg tablet 40 mg PO QAM 05/03/25 05/25/25 tirzepatide 5 mg/0.5 mL 5 mg subcut WK 05/03/25 05/25/25 subcutaneous pen injector Previous Rx's Medication Instructions Recorded fluticasone propionate 50 1 spray intranasal HS PRN allergy 03/16/23 mcg/actuation nasal symptoms #16 grams spray,suspension (Flonase Allergy Relief) [employer] Rosalie [address] [place] (flash #1 ea 05/13/23 glucose scanning reader) blood sugar diagnostic (HDB NewcoTouch #150 ea 11/22/23 Verio test strips) blood-glucose meter (OneTouch #1 ea 11/22/23 Verio Reflect Meter) insulin syringe-needle U-100 1 mL #300 ea 11/22/23 30 gauge x 1/2" (BD Insulin Syringe Ultra-Fine) lancets 33 gauge (OneTouch Delica #150 ea 11/22/23 Plus Lancet) albuterol sulfate 90 mcg/actuation 2 inh inhalation Q6H PRN shortness 02/24/24 aerosol inhaler (Ventolin HFA) of breath or wheezing #6.7 grams ipratropium 0.5 mg-albuterol 3 mg 3 ml inhalation QID PRN wheezing 07/31/24 (2.5 mg base)/3 mL nebulization #90 mL soln nebulizers (Compact Compressor #1 ea 07/31/24 Nebulizer) Botox 200 unit injection See Rx Instructions IM .COMPLEX #1 09/18/24 (onabotulinumtoxinA) ea rosuvastatin 20 mg tablet 20 mg PO QAM #90 tabs 09/19/24 pantoprazole 40 mg tablet,delayed 40 mg PO BID #60 tabs 09/21/24 release pen needle, diabetic 32 gauge x #100 ea 10/23/24 532" (BD Vy 2nd Gen Pen Needle) bumetanide 1 mg tablet 1 mg PO QAM #30 tabs 10/26/24 vitamin B complex (Vitamins B 1 cap PO QAM #30 caps 10/26/24 Complex capsule) levetiracetam 1,000 mg tablet 1,000 mg PO Q12H #60 tabs 11/26/24 metoprolol succinate 25 mg 25 mg PO HS #90 tabs 11/30/24 tablet,extended release 24 hr somatropin 5 mg/1.5 mL (3.3 mg/mL) 0.3 mg (0.09 mL) subcut QPM #2 11/30/24 subcutaneous pen injector syringes (Norditropin FlexPro) lacosamide 150 mg tablet 150 mg PO BID #60 tabs 12/26/24 metformin 1,000 mg tablet 1,000 mg PO BID #180 tabs 02/26/25 rimegepant 75 mg disintegrating 75 mg PO DAILY PRN Migraine 02/28/25 tablet (Nurtec ODT) Headache #16 tabs testosterone 2 pump topical PM #75 grams 03/18/25 formoterol fumarate 20 mcg/2 mL 20 mcg (2 mL) NEB BIDR #60 vials 03/24/25 solution for nebulization (Perforomist) acetylcysteine 200 mg/mL (20 %) 2 ml inhalation BID PRN Chest 03/26/25 solution congestion #100 mL cholecalciferol (vitamin D3) 50 50 mcg PO QPM #90 caps 03/26/25 mcg (2,000 unit) capsule sodium chloride 7 % for 1 inh inhalation BID #240 mL 03/26/25 nebulization tiotropium bromide 2.5 2 puff inhalation DAILY #4 grams 03/26/25 mcg/actuation mist for inhalation (Spiriva Respimat) duloxetine 30 mg capsule,delayed 30 mg PO HS #30 caps 04/12/25 release ondansetron 8 mg disintegrating 8 mg PO Q8H PRN nausea and 04/29/25 tablet vomiting #30 tabs phenazopyridine 200 mg tablet 200 mg PO TID #9 tabs 04/29/25 (Pyridium) [employer] Rosalie 2 Sensor (flash #6 ea 05/06/25 glucose sensor) levothyroxine 150 mcg tablet 150 mcg PO DAILYBB #30 tabs 05/06/25 (Synthroid) desmopressin 0.2 mg tablet 0.4 mg (2 x 0.2 mg) PO BID #120 05/16/25 tabs naloxone 4 mg/actuation nasal 1 spray intranasal ONCE PRN opioid 05/18/25 spray (Narcan) overdose #2 ea oxycodone 5 mg tablet 15 mg (3 x 5 mg) PO Q4H PRN pain 05/18/25 #84 tabs Results & Data (ED) Vital Signs Vital Signs - 24 hr 05/25/25 12:20 05/25/25 12:20 05/25/25 12:20 Temperature 36.6 C 36.6 C Temperature Source Oral Pulse Rate 88 88 Pulse Rate from SpO2 Sensor Respiratory Rate 24 24 Blood Pressure 88/76 L 88/76 L Blood Pressure Mean 80 Pulse Oximetry 98 98 Oxygen Delivery Method Room Air Room Air Room Air Oxygen Flow Rate 0 Sepsis New/Unexplained Change in Mental Status No Sepsis Action Taken by Nursing Physician Notified 05/25/25 12:29 05/25/25 12:30 05/25/25 12:54 Temperature Temperature Source Pulse Rate 85 Pulse Rate from SpO2 Sensor Respiratory Rate Blood Pressure 110/66 Blood Pressure Mean 77 Pulse Oximetry 97 Oxygen Delivery Method Room Air Oxygen Flow Rate Sepsis New/Unexplained Change in Mental Status Sepsis Action Taken by Nursing 05/25/25 13:00 05/25/25 13:00 05/25/25 13:09 Temperature Temperature Source Pulse Rate 87 86 Pulse Rate from SpO2 Sensor 87 86 Respiratory Rate 24 19 Blood Pressure 105/65 Blood Pressure Mean 84 Pulse Oximetry 96 94 Oxygen Delivery Method Room Air Room Air Oxygen Flow Rate Sepsis New/Unexplained Change in Mental Status Sepsis Action Taken by Nursing 05/25/25 13:15 05/25/25 13:21 05/25/25 13:24 Temperature Temperature Source Pulse Rate 84 86 Pulse Rate from SpO2 Sensor 85 86 Respiratory Rate 22 21 Blood Pressure 100/54 L Blood Pressure Mean 61 Pulse Oximetry 96 95 Oxygen Delivery Method Room Air Room Air Oxygen Flow Rate Sepsis New/Unexplained Change in Mental Status Sepsis Action Taken by Nursing 05/25/25 13:30 05/25/25 13:33 05/25/25 13:45 Temperature Temperature Source Pulse Rate 85 85 Pulse Rate from SpO2 Sensor 85 85 Respiratory Rate 23 21 Blood Pressure 102/57 L Blood Pressure Mean 71 Pulse Oximetry 94 95 Oxygen Delivery Method Room Air Oxygen Flow Rate Sepsis New/Unexplained Change in Mental Status Sepsis Action Taken by Nursing 05/25/25 13:45 05/25/25 13:48 05/25/25 13:54 Temperature Temperature Source Pulse Rate 84 Pulse Rate from SpO2 Sensor 84 Respiratory Rate 23 Blood Pressure 81/54 L 83/51 L Blood Pressure Mean 63 55 Pulse Oximetry 95 Oxygen Delivery Method Oxygen Flow Rate Sepsis New/Unexplained Change in Mental Status Sepsis Action Taken by Nursing 05/25/25 14:00 05/25/25 14:00 05/25/25 14:12 Temperature Temperature Source Pulse Rate 86 88 Pulse Rate from SpO2 Sensor 86 88 Respiratory Rate 21 23 Blood Pressure 109/62 Blood Pressure Mean 74 Pulse Oximetry 96 94 Oxygen Delivery Method Room Air Room Air Oxygen Flow Rate Sepsis New/Unexplained Change in Mental Status Sepsis Action Taken by Nursing 05/25/25 14:15 05/25/25 14:24 05/25/25 14:30 Temperature Temperature Source Pulse Rate 87 Pulse Rate from SpO2 Sensor 87 Respiratory Rate 21 Blood Pressure 103/59 L 105/62 Blood Pressure Mean 68 71 Pulse Oximetry 95 Oxygen Delivery Method Room Air Oxygen Flow Rate Sepsis New/Unexplained Change in Mental Status Sepsis Action Taken by Nursing 05/25/25 14:36 05/25/25 14:42 05/25/25 14:45 Temperature Temperature Source Pulse Rate 87 87 Pulse Rate from SpO2 Sensor 87 88 Respiratory Rate 23 24 Blood Pressure 115/66 Blood Pressure Mean 74 Pulse Oximetry 95 97 Oxygen Delivery Method Room Air Oxygen Flow Rate Sepsis New/Unexplained Change in Mental Status Sepsis Action Taken by Nursing 05/25/25 14:48 05/25/25 15:00 Temperature Temperature Source Pulse Rate 88 88 Pulse Rate from SpO2 Sensor 89 88 Respiratory Rate 22 19 Blood Pressure Blood Pressure Mean Pulse Oximetry 97 95 Oxygen Delivery Method Oxygen Flow Rate Sepsis New/Unexplained Change in Mental Status Sepsis Action Taken by Nursing Laboratory Data 05/26/25 05:22 05/26/25 05:22 Lab Results 05/25/25 05/25/25 05/25/25 Range/Units 12:15 12:23 12:33 WBC 6.70 (4.8-10.8) K/ul RBC 3.17 L (4.70-6.10) M/uL Hgb 9.0 L (14.0-18.0) g/dl POC Hgb 8.2 L (14.0-18.0) g/dl Hct 26.6 L (42.0-52.0) % POC Hct 24 L (42-52) % MCV 83.9 (80.0-100.0) fL MCH 28.4 (25.0-34.0) pg MCHC 33.8 (32.0-36.0) g/dL RDW Std Deviation 45.0 (36.4-46.3) fL RDW Coeff of Yanira 14.7 H (11.5-14.5) % Plt Count 232 (130-400) K/uL MPV 9.0 L (9.4-12.4) fL Immature Gran % (Auto) 1.2 % Neut % (Auto) 39.0 % Lymph % (Auto) 37.8 % [place] % (Auto) 14.2 % Eos % (Auto) 7.2 % Baso % (Auto) 0.6 % Neut # (Auto) 2.62 (1.40-6.50) K/uL Lymph # (Auto) 2.53 (1.20-3.40) K/uL [place] # (Auto) 0.95 H (0.11-0.59) K/uL Eos # (Auto) 0.48 (0.00-0.50) K/uL Baso # (Auto) 0.04 (0.00-0.20) K/uL Immature Gran # (Auto) 0.08 (0.01-0.20) K/uL PT 11.8 (9.0-12.0) Seconds INR 1.1 (0.9-1.1) APTT 33 H (21-31) Seconds PTT Ratio 1.2 POC Sodium 134 L (135-144) mmol/L Sodium 135 L (136-145) mmol/L POC Potassium 4.2 (3.3-5.0) mmol/L Potassium 4.2 (3.5-5.1) mmol/L POC Chloride 96 L (101-112) mmol/L Chloride 98 (98-107) mmol/L Carbon Dioxide 25 (21-32) mmol/L POC Total CO2 24 (24-31) mmol/L Anion Gap 12 H (3-11) POC Anion Gap 19.0 (16-25) mmol/L POC BUN 11 (7-18) mg/dl BUN 12 (6-23) mg/dl Creatinine 2.79 H (0.6-1.4) mg/dl POC Creatinine 3.0 H (0.6-1.3) mg/dl Est Cr Clr Drug Dosing Not Reportable eGFR 25.79 BUN/Creatinine Ratio 4.3 L (10-20) Glucose 108 H (70-99(Fasting)) mg/dl POC Glucose 126 H (70-99) mg/dl POC Glucose (other) 108 H (70-99) mg/dl Calcium 8.3 L (8.6-10.3) mg/dl POC Ioniz Calcium Jeny 1.11 L (1.12-1.32) mmol/l Phosphorus 5.5 H (2.5-4.9) mg/dl Magnesium 1.2 L (1.7-2.4) mg/dl Total Bilirubin 0.5 (0.2-1.0) mg/dl AST 33 (13-39) U/L ALT 29 (7-52) U/L Alkaline Phosphatase 64 (34-104) U/L Troponin I High Sens 4.6 (0-20) pg/ml Total Protein 5.6 L (6.0-8.3) gm/dl Albumin 3.5 (3.4-5.0) gm/dl Globulin 2.1 L (2.5-4.0) gm/dl Albumin/Globulin Ratio 1.7 (0.9-2) Lipase 28 (11-82) U/L Valproic Acid 101 H (50-100) mcg/ml Administered Medications Aripiprazole (Aripiprazole 5 Mg Tab) 5 mg PO QAM ON LICENSE OF [facility] Stop: 06/25/25 08:59 Last Admin: 05/26/25 09:36 Dose: 5 mg Documented By: ESL Aspirin (Aspirin 81 Mg Ectab) 81 mg PO QPM ON LICENSE OF [facility] Stop: 06/24/25 20:59 Last Admin: 05/25/25 19:55 Dose: 81 mg Documented By: MCS Budesonide (Budesonide 0.5 Mg/2 Ml Vial (Pulmicort)) 0.5 mg INH DAILY@1900 ON LICENSE OF [facility] Stop: 06/24/25 18:59 Last Admin: 05/25/25 19:40 Dose: 0.5 mg Documented By: TONYP Clopidogrel Bisulfate (Clopidogrel Bisulfate 75 Mg Tab) 75 mg PO QPM ON LICENSE OF [facility] Stop: 06/24/25 20:59 Last Admin: 05/25/25 19:55 Dose: 75 mg Documented By: MCS Desmopressin Acetate (Desmopressin Acetate 0.1 Mg Tab) 0.4 mg PO BID OBDULIO Stop: 06/24/25 20:59 Last Admin: 05/26/25 09:36 Dose: 0.4 mg Documented By: Admin: 05/25/25 19:52 Dose: 0.4 mg Documented By: MCS Divalproex Sodium (Divalproex Delay Release 500 Mg Tab) [facility] Stop: 06/25/25 08:59 Last Admin: 05/26/25 09:36 Dose: 1,000 mg Documented By: ESL Duloxetine HCl (Duloxetine Hcl 60 Mg Cap) [facility] [place] Stop: 06/25/25 08:59 Last Admin: 05/26/25 09:36 Dose: 60 mg Documented By: ESL Duloxetine HCl (Duloxetine Hcl 30 Mg Cap) 30 mg PO [facility] Stop: 06/24/25 20:59 Last Admin: 05/25/25 19:53 Dose: 30 mg Documented By: [facility] Famotidine (Famotidine 20 Mg Tab) 20 [facility] Stop: 06/25/25 08:59 Last Admin: 05/26/25 09:56 Dose: 20 mg Documented By: ESL Formoterol Fumarate (Formoterol 20 Mcg/2 Ml Vial) 20 mcg INH BIDR ON LICENSE OF [facility] Stop: 06/24/25 18:59 Last Admin: 05/26/25 07:18 Dose: 20 mcg Documented By: [id number] Admin: 05/25/25 19:40 Dose: 20 mcg Documented By: TONYP Hydrocortisone (Hydrocortisone 10 Mg Tab) 10 mg PO [facility] Stop: 06/24/25 20:59 Last Admin: 05/25/25 19:52 Dose: 10 mg Documented By: MCS Hydrocortisone (Hydrocortisone 10 Mg Tab) 20 mg PO QAM ON LICENSE OF [facility] Stop: 06/25/25 08:59 Last Admin: 05/26/25 09:36 Dose: 20 mg Documented By: ESL Sodium Chloride (Nss) 1,000 mls @ 121 mls/hr IV .Q8H16M ONE Stop: 05/26/25 16:45 Last Admin: 05/26/25 08:31 Dose: 121 mls/hr Documented By: RANDY Insulin Aspart (Insulin Aspart Per Unit Charge) 0 units SC ACHS OBDULIO Stop: 06/25/25 07:29 Last Admin: 05/26/25 12:42 Dose: Not Given Documented By: Admin: 05/26/25 09:55 Dose: Not Given Documented By: RANDY Lacosamide (Lacosamide 50 Mg Tablet) 150 mg PO BID OBDULIO Stop: 06/24/25 20:59 Last Admin: 05/26/25 09:56 Dose: 150 mg Documented By: Admin: 05/25/25 20:46 Dose: 150 mg Documented By: MICHAEL Levetiracetam (Levetiracetam 500 Mg Tab) 1,000 mg PO Q12 OBDULIO Stop: 06/24/25 20:59 Last Admin: 05/26/25 09:36 Dose: 1,000 mg Documented By: Admin: 05/25/25 19:54 Dose: 1,000 mg Documented By: MICHAEL Levothyroxine Sodium (Levothyroxine Sodium 150 Mcg Tablet) 150 mcg PO DAILYBB ON LICENSE OF [facility] Stop: 06/25/25 06:29 Last Admin: 05/26/25 05:46 Dose: 150 mcg Documented By: MICHAEL Naloxone HCl (Naloxone Hcl 0.4 Mg/1 Ml Vial/Carp) 0.4 mg IV NOW PRN PRN Reason: Sedation Stop: 06/24/25 12:24 Last Admin: 05/25/25 13:59 Dose: 0.4 mg Documented By: NEHAL Umeclidinium [place] (Umeclidinium [place] 62.5mcg/Blister 7 Puffs/Inhaler) 1 puffs INH DAILY ON LICENSE OF [facility] Stop: 06/24/25 15:14 Last Admin: 05/26/25 09:37 Dose: 1 puffs Documented By: Admin: 05/25/25 16:15 Dose: 1 puffs Documented By: TEODORO Venlafaxine HCl (Venlafaxine Hcl Xr 75 Mg Capxr) 75 mg PO QAM ON LICENSE OF [facility] Stop: 06/25/25 08:59 Last Admin: 05/26/25 09:37 Dose: 75 mg Documented By: ESL Venlafaxine HCl (Venlafaxine Hcl Xr 150 Mg Capxr) 150 mg PO QAM OBDULIO Stop: 06/25/25 08:59 Last Admin: 05/26/25 09:37 Dose: 150 mg Documented By: ESL Discontinued Medications Divalproex Sodium (Divalproex Delay Release 500 Mg Tab) 1,000 mg PO ONE ONE Stop: 05/25/25 15:31 Last Admin: 05/25/25 16:15 Dose: 1,000 mg Documented By: ANT Duloxetine HCl (Duloxetine Hcl 60 Mg Cap) 60 mg PO ONE ONE Stop: 05/25/25 15:31 Last Admin: 05/25/25 16:14 Dose: 60 mg Documented By: ANT Famotidine (Famotidine 20 Mg Tab) 20 mg PO ONE ONE Stop: 05/25/25 15:31 Last Admin: 05/25/25 16:14 Dose: 20 mg Documented By: ANT Sodium Chloride (Nss) 1,000 mls @ 999 mls/hr IV .Q1H1M OBDULIO Stop: 05/25/25 13:30 Last Infusion: 05/25/25 13:41 Dose: Infused Documented By: Admin: 05/25/25 12:30 Dose: 999 mls/hr Documented By: NEHAL Magnesium Sulfate/Dextrose (Magnesium Sulfate / D5w) 1 gm in 100 mls @ 100 mls/hr IV NOW STA Stop: 05/25/25 13:26 Last Infusion: 05/25/25 14:00 Dose: Infused Documented By: Admin: 05/25/25 13:00 Dose: 100 mls/hr Documented By: NEHAL Sodium Chloride (Nss) 1,000 mls @ 999 mls/hr IV .Q1H1M OBDULIO Stop: 05/25/25 14:56 Last Infusion: 05/25/25 15:09 Dose: Infused Documented By: Admin: 05/25/25 14:02 Dose: 999 mls/hr Documented By: NEHAL Sodium Chloride (Nss) 500 mls @ 121 mls/hr IV .Q4H8M ONE Stop: 05/25/25 19:29 Last Infusion: 05/25/25 20:25 Dose: Infused Documented By: Admin: 05/25/25 16:15 Dose: 121 mls/hr Documented By: ANT Calcium Gluconate () 1,000 mg in 60 mls @ 240 mls/hr IV Q15M OBDULIO Stop: 05/25/25 18:44 Last Infusion: 05/25/25 20:10 Dose: Infused Documented By: Admin: 05/25/25 19:48 Dose: 240 mls/hr Documented By: Infusion: 05/25/25 19:43 Dose: Infused Documented By: Admin: 05/25/25 19:34 Dose: 240 mls/hr Documented By: Infusion: 05/25/25 19:30 Dose: Infused Documented By: Admin: 05/25/25 19:15 Dose: 240 mls/hr Documented By: MCS Magnesium Sulfate/Dextrose (Magnesium Sulfate / D5w) 1 gm in 100 mls @ 50 mls/hr IV Q2H ON LICENSE OF [facility] Stop: 05/26/25 02:29 Last Infusion: 05/26/25 03:02 Dose: Infused Documented By: Admin: 05/26/25 01:15 Dose: 50 mls/hr Documented By: Infusion: 05/26/25 01:10 Dose: Infused Documented By: Admin: 05/25/25 23:03 Dose: 50 mls/hr Documented By: Infusion: 05/25/25 23:03 Dose: Infused Documented By: Admin: 05/25/25 21:15 Dose: 50 mls/hr Documented By: Infusion: 05/25/25 21:15 Dose: Infused Documented By: Admin: 05/25/25 19:15 Dose: 50 mls/hr Documented By: MCS Acetaminophen (Ofirmev) 1,000 mg in 100 mls @ 400 mls/hr IV NOW STA Stop: 05/25/25 23:27 Last Infusion: 05/26/25 00:02 Dose: Infused Documented By: Admin: 05/25/25 23:37 Dose: 400 mls/hr Documented By: MCS Lorazepam (Lorazepam 2 Mg/1 Ml Vial) Confirm Administered Dose 2 mg .ROUTE .STK- MED ONE Stop: 05/25/25 23:00 Last Admin: 05/25/25 23:01 Dose: 2 mg Documented By: MCS Lorazepam (Lorazepam 2 Mg/1 Ml Vial) 0.5 mg IV NOW STA Stop: 05/25/25 23:01 Last Admin: 05/25/25 23:38 Dose: 0.5 mg Documented By: MCS Naloxone HCl (Naloxone Hcl 0.4 Mg/1 Ml Vial/Carp) 0.4 mg IV NOW STA Stop: 05/25/25 18:34 Last Admin: 05/25/25 19:13 Dose: 0.4 mg Documented By: MICHAEL Ondansetron HCl (Ondansetron Inj 2 Mg/Ml 2 Ml Vial) Confirm Administered Dose 4 mg .ROUTE .STK-MED ONE Stop: 05/25/25 12:36 Last Admin: 05/25/25 12:35 Dose: 4 mg Documented By: NEHAL Imaging Data Radiologist's Impression: Abdomen/Pelvis CT 05/25/25 12:24 CT OF THE ABDOMEN AND PELVIS WITHOUT CONTRAST CLINICAL HISTORY: Trauma COMPARISON STUDY: CT of the abdomen and pelvis May 13, 2025. TECHNIQUE: Axial images of the abdomen and pelvis were obtained without IV contrast. Images were reviewed in the axial, sagittal, and coronal planes. Automated exposure control was utilized for the study. A dose lowering technique was utilized adhering to the principles of ALARA. FINDINGS: Please note that the chest CT will be reported separately. No hemoperitoneum or pneumoperitoneum is present. Solid abdominal viscera are suboptimally assessed on unenhanced exam. However, there is no evidence for traumatic injury to the liver, spleen, adrenal glands, kidneys or pancreas. The right lower pole renal calculi are present. There are no ureteral calculi. No hydronephrosis. There is no evidence for a bowel obstruction. Colonic diverticulosis without evidence for acute diverticulitis. Lumbar spine CT will be reported separately. No acute fractures within the lumbar spine, pelvis or hips are identified. L5-S1 decompression and fusion is noted. IMPRESSION: No acute traumatic findings within the abdomen or pelvis on unenhanced exam. ACT 112: Negative or not required by law. Electronically signed by: Aditya Foley M.D. 05/25/2025 1:[address] 05/25/25 12:24 CT SCAN OF THE CERVICAL SPINE CLINICAL HISTORY: Trauma. COMPARISON STUDY: Cervical spine CT June 04, 2023. TECHNIQUE: CT scan of the cervical spine is performed from the skull base to the upper thoracic spine. Images are reviewed in the axial, sagittal, and coronal planes. IV contrast was not administered for this examination. A dose lowering technique was utilized adhering to the principles of ALARA. CT DOSE: 2845.95 mGy.cm FINDINGS: Skeletal structures: Mild motion artifact is noted. There is no evidence of fracture or subluxation involving the cervical spine. Vertebral body height and alignment are maintained. The odontoid process and lateral masses are intact. The atlantoaxial articulation is preserved. The spinous processes appear intact. Moderate disc space narrowing and osteophytosis at C4-C5 is unchanged. There is moderate multilevel facet arthrosis. Soft tissues: The prevertebral and paraspinous soft tissues are within normal limits. Calvarium: The visualized calvarium at the skull base appears intact. Brain parenchyma: Partially visualized brain parenchyma at the skull base is within normal limits. Lung apices: Clear as visualized. IMPRESSION: No acute cervical spine fracture or subluxation. Mild motion artifact. ACT 112: Negative or not required by law. Electronically signed by: Aditya Foley M.D. 05/25/2025 1:[address] 05/25/25 12:24 CT OF THE CHEST WITHOUT IV CONTRAST CLINICAL HISTORY: trauma COMPARISON STUDY: Chest CT March 19, 2025. Chest radiograph performed earlier today. TECHNIQUE: Axial images of the chest were obtained without IV contrast. Images were reviewed in the axial, sagittal, and coronal planes. IV contrast was not administered for this examination. Automated exposure control was utilized for the study. A dose lowering technique was utilized adhering to the principles of ALARA. FINDINGS: This exam is mildly compromised by motion artifact. Subpleural opacities favor atelectasis. There is no pneumothorax or pleural effusion. No pulmonary contusion is present. Moderate cardiomegaly is again noted. Thoracic aorta is suboptimally assessed on unenhanced exam but there is no mediastinal hematoma. Left atrial appendage occluder device is in place. No acute rib or thoracic spine fractures are present. There is an old fracture of the anterior left fourth rib. There is no distal left clavicular fracture. IMPRESSION: 1. Mild motion artifact. No acute traumatic findings within the chest on unenhanced exam. 2. Subpleural airspace opacities of suggestive of atelectasis. 3. No pneumothorax. ACT 112: Negative or not required by law. Electronically signed by: Aditya Foley M.D. 05/25/2025 1:40 PM Chest X-Ray 05/25/25 12:24 XR chest 1V portable CLINICAL HISTORY: Trauma. COMPARISON STUDY: Chest CT March 19, 2025. Chest radiograph April 10, 2025. FINDINGS: Low lung volumes are unchanged. Cardiomegaly is unchanged. There is no evidence for pulmonary edema. No pneumothorax or pleural effusion is identified. There is been no significant change in appearance of the chest. There is an old left clavicular fracture. IMPRESSION: No acute cardiopulmonary findings. No significant change in appearance of the chest. ACT 112: Negative or not required by law. Electronically signed by: Aditya Foley M.D. 05/25/2025 12:[address] 05/25/25 12:[address] WITHOUT CONTRAST CLINICAL HISTORY: Trauma. COMPARISON STUDY: Head CT May 17, 2025. TECHNIQUE: A maxillofacial CT was performed without IV contrast. Coronal and sagittal reformats were viewed. Automated exposure control was utilized for the study. A dose lowering technique was utilized adhering to the principles of ALARA. FINDINGS: Globes are intact. There is no retrobulbar hematoma. Note is made of comminuted mildly displaced right orbital floor fracture. Fracture is displaced approximately 5 mm. In retrospect, this fracture was present on CT of May 17, 2025 is better depicted on current exam. No additional facial fractures are present. A small amount of orbital fat extends through the defect. Small amount hemorrhage/mucosal thickening within the adjacent portion of the right maxillary sinus is present. Alignment of the temporomandibular joints is anatomic. IMPRESSION: 1. No acute facial fracture. 2. Comminuted mildly displaced right orbital floor fracture, as described above. This is likely subacute. ACT 112: Negative or not required by law. Electronically signed by: Aditya Foley M.D. 05/25/2025 1:[address] 05/25/25 12:24 CT SCAN OF THE BRAIN WITHOUT IV CONTRAST CLINICAL HISTORY: Trauma. COMPARISON STUDY: MRI of the brain January 20, 2025. Head CT May 17, 2025. TECHNIQUE: Unenhanced axial CT scan of the brain was performed from the vertex to the skull base. A dose lowering technique was utilized adhering to the principles of ALARA. FINDINGS: This exam is moderately compromised by motion artifact. The ventricular system is unremarkable. Basal cisterns are patent. There are no extra-axial collections. Posterior fossa arachnoid cyst is incidentally noted. This is unchanged. No calvarial fractures are identified. IMPRESSION: 1. No acute intracranial findings. Moderate motion artifact. 2. No calvarial fractures identified. ACT 112: Negative or not required by law. Electronically signed by: Aditya Foley M.D. 05/25/2025 1:[address] 05/25/25 12:24 CT lumbar spine wo con CLINICAL HISTORY: trauma COMPARISON STUDY: Lumbar spine MRI December 02, 2023. CT of the abdomen and pelvis May 13, 2025. TECHNIQUE: Axial images of the lumbar spine were obtained without IV contrast. Sagittal and coronal reformats were viewed. A dose lowering technique was utilized adhering to the principles of ALARA. FINDINGS: Alignment of the lumbar spine is anatomic. There are no lumbar spine fractures. There are stable postoperative findings consistent with L5-S1 discectomy with interbody spacer placement, posterior decompression and bilateral pedicle screw fusion. No osseous lesions are identified. Central canal and neural foramen are suboptimally assessed given CT technique. IMPRESSION: 1. No acute lumbar spine fracture or subluxation. 2. Stable findings following L5-S1 decompression and fusion. ACT 112: Negative or not required by law. Electronically signed by: Aditya Foley M.D. 05/25/2025 1:48 PM Discharge Plan Visit Data Chief Complaint: Trauma Stated Complaint: WEAKNESS, SYNCOPE, FALL, AMS ED Provider: Tammy Luciano Discharge Problem: CHI (closed head injury), QUENTIN (acute kidney injury), Dizziness, Hypomagnesemia, Contusion of face Patient Disposition: Admitted As Inpatient Condition: Fair Discharge Instructions Interventions: ED Discharge Assessment Last Done: 05/25/25 18:16
--- NOTE | 2025-05-25 12:56 | XRay Report ---
XR chest 1V portable CLINICAL HISTORY: Trauma. COMPARISON STUDY: Chest CT March 19, 2025. Chest radiograph April 10, 2025. FINDINGS: Low lung volumes are unchanged. Cardiomegaly is unchanged. There is no evidence for pulmona ry edema. No pneumothorax or pleural effusion is identified. There is been no significant change in a ppearance of the chest. There is an old left clavicular fracture. IMPRESSION: No acute cardiopulmonary findings. No significant change in appearance of the chest. ACT 112: Negative or not required by law. Electronically signed by: Aditya Foley M.D. 05/25/2025 12:55 PM
[2025-05-25] MEDS: MAGNESIUM SULFATE / D5W 1 GM/100 ML BAG IV STA (13:00)
[2025-05-25 13:09] LABS: Alanine Aminotransferase 29 U/L (7-52); Albumin Globulin Ratio 1.7 (0.9-2); Alkaline Phosphatase 64 U/L (34-104); Anion Gap 12 (3-11); Bilirubin,Total 0.5 mg/dl (0.2-1.0); Blood Urea Nitrogen 12 mg/dl (6-23); Calcium 8.3 mg/dl (8.6-10.3); Carbon Dioxide 25 mmol/L (21-32); Chloride 98 mmol/L (98-107); Globulin 2.1 gm/dl (2.5-4.0); Glucose 108 mg/dl (70-99(Fasting)); Lipase 28 U/L (11-82); Potassium 4.2 mmol/L (3.5-5.1); Sodium 135 mmol/L (136-145); Total Protein 5.6 gm/dl (6.0-8.3)
--- NOTE | 2025-05-25 13:12 | CT Scan Report ---
CT SCAN OF THE BRAIN WITHOUT IV CONTRAST CLINICAL HISTORY: Trauma. COMPARISON STUDY: MRI of the brain January 20, 2025. Head CT May 17, 2025. TECHNIQUE: Unenhanced axial CT scan of the brain was performed from the vertex to the skull base. A dose lowering technique was utilized adhering to the principles of ALARA. FINDINGS: This exam is moderately compromised by motion artifact. The ventricular system is unremarka ble. Basal cisterns are patent. There are no extra-axial collections. Posterior fossa arachnoid cyst is incidentally noted. This is unchanged. No calvarial fractures are identified. IMPRESSION: 1. No acute intracranial findings. Moderate motion artifact. 2. No calvarial fractures identified. ACT 112: Negative or not required by law. Electronically signed by: Aditya Foley M.D. 05/25/2025 1:10 PM
--- NOTE | 2025-05-25 13:19 | CT Scan Report ---
MAXILLOFACIAL CT WITHOUT CONTRAST CLINICAL HISTORY: Trauma. COMPARISON STUDY: Head CT May 17, 2025. TECHNIQUE: A maxillofacial CT was performed without IV contrast. Coronal and sagittal reformats were viewed. Automated exposure control was utilized for the study. A dose lowering technique was utiliz ed adhering to the principles of ALARA. FINDINGS: Globes are intact. There is no retrobulbar hematoma. Note is made of comminuted mildly disp laced right orbital floor fracture. Fracture is displaced approximately 5 mm. In retrospect, this fra cture was present on CT of May 17, 2025 is better depicted on current exam. No additional facial fra ctures are present. A small amount of orbital fat extends through the defect. Small amount hemorrhage /mucosal thickening within the adjacent portion of the right maxillary sinus is present. Alignment of the temporomandibular joints is anatomic. IMPRESSION: 1. No acute facial fracture. 2. Comminuted mildly displaced right orbital floor fracture, as described above. This is likely subac [place]. ACT 112: Negative or not required by law. Electronically signed by: Aditya Foley M.D. 05/25/2025 1:17 PM
[2025-05-25 13:28] LABS: INR 1.1 (0.9-1.1); Partial Thromboplastin Time 33 Seconds (21-31); Prothrombin Time 11.8 Seconds (9.0-12.0)
--- NOTE | 2025-05-25 13:33 | CT Scan Report ---
CT SCAN OF THE CERVICAL SPINE CLINICAL HISTORY: Trauma. COMPARISON STUDY: Cervical spine CT June 04, 2023. TECHNIQUE: CT scan of the cervical spine is performed from the skull base to the upper thoracic spine . Images are reviewed in the axial, sagittal, and coronal planes. IV contrast was not administered fo r this examination. A dose lowering technique was utilized adhering to the principles of ALARA. CT DOSE: 2845.95 mGy.cm FINDINGS: Skeletal structures: Mild motion artifact is noted. There is no evidence of fracture or subluxation i nvolving the cervical spine. Vertebral body height and alignment are maintained. The odontoid proces s and lateral masses are intact. The atlantoaxial articulation is preserved. The spinous processes ap pear intact. Moderate disc space narrowing and osteophytosis at C4-C5 is unchanged. There is moderate multilevel facet arthrosis. Soft tissues: The prevertebral and paraspinous soft tissues are within normal limits. Calvarium: The visualized calvarium at the skull base appears intact. Brain parenchyma: Partially visualized brain parenchyma at the skull base is within normal limits. Lung apices: Clear as visualized. IMPRESSION: No acute cervical spine fracture or subluxation. Mild motion artifact. ACT 112: Negative or not required by law. Electronically signed by: Aditya Foley M.D. 05/25/2025 1:31 PM
--- NOTE | 2025-05-25 13:42 | CT Scan Report ---
CT OF THE CHEST WITHOUT IV CONTRAST CLINICAL HISTORY: trauma COMPARISON STUDY: Chest CT March 19, 2025. Chest radiograph performed earlier today. TECHNIQUE: Axial images of the chest were obtained without IV contrast. Images were reviewed in the axial, sagittal, and coronal planes. IV contrast was not administered for this examination. Automat ed exposure control was utilized for the study. A dose lowering technique was utilized adhering to t he principles of ALARA. FINDINGS: This exam is mildly compromised by motion artifact. Subpleural opacities favor atelectasis . There is no pneumothorax or pleural effusion. No pulmonary contusion is present. Moderate cardiomeg shawna is again noted. Thoracic aorta is suboptimally assessed on unenhanced exam but there is no medias tinal hematoma. Left atrial appendage occluder device is in place. No acute rib or thoracic spine fra ctures are present. There is an old fracture of the anterior left fourth rib. There is no distal left clavicular fracture. IMPRESSION: 1. Mild motion artifact. No acute traumatic findings within the chest on unenhanced exam. 2. Subpleural airspace opacities of suggestive of atelectasis. 3. No pneumothorax. ACT 112: Negative or not required by law. Electronically signed by: Aditya Foley M.D. 05/25/2025 1:40 PM
--- NOTE | 2025-05-25 13:48 | CT Scan Report ---
CT OF THE ABDOMEN AND PELVIS WITHOUT CONTRAST CLINICAL HISTORY: Trauma COMPARISON STUDY: CT of the abdomen and pelvis May 13, 2025. TECHNIQUE: Axial images of the abdomen and pelvis were obtained without IV contrast. Images were revi ewed in the axial, sagittal, and coronal planes. Automated exposure control was utilized for the moira dy. A dose lowering technique was utilized adhering to the principles of ALARA. FINDINGS: Please note that the chest CT will be reported separately. No hemoperitoneum or pneumoperit oneum is present. Solid abdominal viscera are suboptimally assessed on unenhanced exam. However, ther e is no evidence for traumatic injury to the liver, spleen, adrenal glands, kidneys or pancreas. The right lower pole renal calculi are present. There are no ureteral calculi. No hydronephrosis. There i s no evidence for a bowel obstruction. Colonic diverticulosis without evidence for acute diverticulit is. Lumbar spine CT will be reported separately. No acute fractures within the lumbar spine, pelvis o r hips are identified. L5-S1 decompression and fusion is noted. IMPRESSION: No acute traumatic findings within the abdomen or pelvis on unenhanced exam. ACT 112: Negative or not required by law. Electronically signed by: Aditya Foley M.D. 05/25/2025 1:46 PM
--- NOTE | 2025-05-25 13:50 | CT Scan Report ---
CT lumbar spine wo con CLINICAL HISTORY: trauma COMPARISON STUDY: Lumbar spine MRI December 02, 2023. CT of the abdomen and pelvis May 13, 2025. TECHNIQUE: Axial images of the lumbar spine were obtained without IV contrast. Sagittal and coronal r eformats were viewed. A dose lowering technique was utilized adhering to the principles of ALARA. FINDINGS: Alignment of the lumbar spine is anatomic. There are no lumbar spine fractures. 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 No osseous lesions are identified. Central christin l and neural foramen are suboptimally assessed given CT technique. IMPRESSION: 1. No acute lumbar spine fracture or subluxation. 2. Stable findings following L5-S1 decompression and fusion. ACT 112: Negative or not required by law. Electronically signed by: Aditya Foley M.D. 05/25/2025 1:48 PM
[2025-05-25] MEDS: NALOXONE HCL 0.4 MG/1 ML VIAL/CARP IV PRN (13:59)
[2025-05-25] MEDS ORDERED: FLUTICASONE PROPIONATE NA SPR 16 GM BTL PRN (15:08)
[2025-05-25] MEDS ORDERED: LORazepam 0.5 MG TAB PO PRN (15:08)
[2025-05-25] MEDS ORDERED: NALOXONE NASAL SPRAY 4 MG ER HOMEPACK PRN (15:08)
[2025-05-25] MEDS ORDERED: ALBUT/IPRATROP 3MG/0.5MG NEB 3 ML VIAL INH PRN (15:08)
[2025-05-25] MEDS: FAMOTIDINE 20 MG TAB PO ONE (16:14)
[2025-05-25] MEDS: SODIUM CHLORIDE 0.9% 500 ML IV ONE (16:15)
[2025-05-25] MEDS: UMECLIDINIUM BROMIDE 62.5MCG/BLISTER 7 PUFFS/INHALER INH SCH (16:15)
[2025-05-25] MEDS: DIVALPROEX DELAY RELEASE 500 MG TAB PO ONE (16:15)
[2025-05-25 17:35] LABS: Appearance Urine Cloudy (Clear); Bacteria Urine Automated None Seen (None Seen); Cast Urine Automated >20 /lpf (0-2); Epithelial Cell Urine Auto 0-2 /hpf (0-2); Glucose Urine UA Negative (Negative); RBC Urine Automated 0-2 /hpf (0-2); WBC Urine Automated 0-5 /hpf (0-5)
--- NOTE | 2025-05-25 17:41 | History & Physical Report ---
Date of Service May 25, 2025 Assessment & Plan (1) QUENTIN (acute kidney injury): Plan: As above in the History of Present Illness. (2) Acute hyponatremia: Plan: As above in the History of Present Illness. (3) Hypocalcemia: Plan: As above in the History of Present Illness. (4) Hypomagnesemia: Plan: As above in the History of Present Illness. (5) Hyperphosphatemia: Plan: As above in the History of Present Illness. (6) Toxic metabolic encephalopathy: Plan: As above in the History of Present Illness. (7) Hypotension: Plan: As above in the History of Present Illness. (8) Opiate dependence: Plan: As above in the History of Present Illness. History of Present Illness Chief Complaint: "I'm weak. I'm nauseated. No eating or drinking for 2 days now. No appetite. No diarrhea. I fell today (05/25/2025, 11:45am) in the living room after 10 steps. Landed on my face. Then my said I passed out on the floor for 1 minute, and then I woke up. I know where I am. I did not bite my tongue. I didn't piss or poop in my pants. I'm weak." Primary Care Provider: Larry Amaral MD 54 years old male with PMH of FULL CODE @ home, obesity with BMI 38.6 (height 177.8 cm; weight 121.9 kg), presumed CORINA, chronic normocytic, normochromic anemia with baseline Hb range, 12.1 g/dL to 13.7 g/dL (12/07/2022 - 03/29/2025), chronic ambulatory dysfunction (due to rappelling 40 feet from a [employer] helicopter to the ground 200 times and landing on his feet 200 times on the [place] for 10 months ([place], [place] War), leading to chronic lumbago, s/p insertion of 2 steel rods into the spine, and physical therapy-recommended walker not utilized by patient who is too proud and ashamed to let passers-by see him utilizing a walker), GERD on famotidine 20mg PO daily and pantoprazole 40mg PO bid, lumbar stenosis w/ claudication, dysphagia, insulin-dependent DM2 with HbA1c 6.0% (01/17/2025, 2:53am) on lantus 12 units SQ qhs and metformin 1000mg PO bid, BPH on dutasteride 0.5mg PO qam, urinary incontinence on oxybutynin 5mg PO daily, chronic venous insufficiency, allergic rhinitis on fluticasone 50ug/spray, 1 spray to each nostril qhs prn allergic rhinitis, tobacco-naive chronic hypoxic respiratory failure due to (a) 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 [place] 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 with no mask or ventilator provided to patient and to (b) daily inhalation of t ar and 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 in the burning [place] of [place] for 10 months ( 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 that developed after spending 10 months on the burning oil [place] in [place] ( War) on prazosin 5mg PO qhs, panic attack on propanolol 120mg PO qhs, migraine headache on rimegepant ODT 75mg PO daily prn migraine headache, demyelinating disease not otherwise specified, generalized tonic-clonic seizure disorder on lacosamide 150mg PO bid, levetiracetam 1000mg PO q12, valproic acid 1000mg PO daily, and lorazepam 0.5mg PO daily prn seizure, pituitary tumor s/p resections x 2 (first resection ~19 years ago @ [facility]); second resection ~5 years ago @ [facility]), 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 for: (a) vasopressin deficiency, treated with desmopressin 0.4mg PO bid, (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, (c) adrenal insufficiency, treated with hydrocortisone 20mg PO qam and hydrocortisone 10mg PO q2pm, (d) acquired hypothyroidism, treated with levothyroxine 150ug PO qam, (e) hypogonadism, treated with testosterone 20.25mg/1.25g (1.62% gel) 2 pumps topically qpm, who was subsequently treated for "double pneumonia" (July 2024, [facility]), who was subsequently treated for a 1 week-belated/delayed diagnosis of compartment syndrome of right lower extremity, culminating in cardiac arrest x 4 episodes (August 2024, [facility]), followed by helicopter transfer out of [facility] and to [facility] for emergent fasciotomy and IV antibiotics, during which time, patient's of 34 years left patient abruptly for a younger, healthy man "because she could not accept all of my medical problems or deal with them", who presented to [facility] on 01/16/2025 for acute increase in cough and dyspnea and was admitted to the inpatient hospitalist service @ [facility] on 01/16/2025 with the following diagnosis: 1. Acute hypoxic respiratory failure due to acute influenza A infection with no obvious infiltrate/consolidation on admission 01/16/2025 portable CXR. Patient was discharged back to his home on 01/25/2025, only to be re-admitted on 01/27/2025 with SOB/SCOTT, but no acute hypoxic respiratory failure, followed by discharge back to home on 01/29/2025. Patient was subsequently admitted to [facility] on 04/06/2025 with complaints of 2 days of bilateral flank pain and gross hematuria on the morning of 04/06/2025. Patient was subsequently admitted to [facility] Medicine Residency Service on 04/06/2025 with the following diagnoses: 1. Severe sepsis, but not septic shock, due to acute UTI, R/O gram negative jelani-associated bacteremia. 2. Acute urinary tract obstruction due to 10 cm renal calculus with no acute kidney failure given normal creatinine 0.71 mg/dL (04/06/2025, 1:05pm). Patient was subsequently discharged back to his home on 04/09/2025. Patient was subsequently re-admitted to the inpatient hospitalist service @ [facility] on 05/03/2025 with the following diagnoses: 1. Recurrent 7mm right upper pole renal calculus with partially visualized right ureteral stent causing worsening right-sided flank pain, but no hydronephrosis (as reported on 05/03/2025, 2:30pm renal U/S). Patient subsequently underwent: a. 05/06/2025, 1:18pm cystoscopy, bilateral ureteroscopy, laser destruction of R stone with bucket extraction, and R ureteral stent removal ([facility] Urologist Dr. Ck Mendoza) b. 05/07/2025, 4:33pm cystoscopy, clot evacuation, and bilateral ureteral stent insertion ([facility] Urologist Dr. Glynn King). c. 05/10/2025, 8:58am insertion of puentes catheter d. 05/10/2025, 4:06pm initiation of continuous bladder irrigation given gross hematuria with blood clots clogging up puentes catheter Patient subsequently developed gross hematuria with blood clots clogging up puentes catheter (inserted on 05/10/2025, 8:58am), requiring initiation of CBI (05/10/2025, 4:06pm). Patient subsequently was discharged back to his home on 05/12/2025 with gross hematuria RESOLVED with puentes catheter in situ and no further need for CBI on hospital discharge back to his home on 05/12/2025. Patient subsequently reported feeling well on hospital discharge back to his home on 05/12/2025. Patient subsequently was re-admitted to [facility] on 05/13/2025 with intractable, generalized abdominal pain. Patient subsequently underwent removal of bilateral ureteral stents (05/14/2025, 10:16am, [facility] Urologist Dr. Glynn King). Patient subsequently was discharged back to his home on 05/18/2025 with prescriptions for: a. oxycodone 15mg PO q4 prn pain, #84 tablets, no refills. b. naloxone 4mg/spray, 1 spray intranasal once prn opioid intoxication. Patient subsequently returns to [facility] ER on 05/25/2025 with complaints of: "I'm weak. I'm nauseated. No eating or drinking for 2 days now. No appetite. No diarrhea. I fell today (05/25/2025, 11:45am) in the living room after 10 steps. Landed on my face. Then my said I passed out on the floor for 1 minute, and then I woke up. I know where I am. I did not bite my tongue. I didn't piss or poop in my pants. I'm weak." Patient denies antecedent/coincident fevers, chills, diaphoresis, cough, wheeze, sore throat, hemoptysis, shortness of breath, dyspnea on exertion, chest pains, palpitations, pleurisy, vomiting, diarrhea, abdominal pain, pelvic pain, hematemesis, hematochezia, melena, hematuria, dysuria, frequency, urgency, headaches, dizziness, lightheadedness, visual changes, hearing changes, travel history, sick contacts, or food/drug ingestions novel or new. All other review of systems are reported as negative by the patient on admission date 05/25/2025. EMS subsequently arrived to patient's home and found patient to be minimally arousable and administered naloxone (aka, Narcan) 4mg intranasal spray x 1 dose and patient "woke up." EMS subsequently transported patient to [facility] ER for further evaluation. In [facility] ER bed #A12B, patient was afebrile @ 36.6 degrees Celsius, HR 88, RR 24, O2 sat 98% on room air, and BP 88/76, MAP 80 (05/25/2025, 12:20pm). Exam was noted for right periorbital ecchymosis without cranial nerve III entrapment, chemosis, hyphema, scleral icterus/hyperemia, conjunctivitis, nystagmus, gaze paresis, or pterygium. Labs in [facility] ER bed #A12B included: WBC 6.70, N39 L38 M14 E7 B1, Hb 9.0, MCV 83.9, MCHC 33.8, platelet 232 (05/25/2025, 12:23pm). INR 1.1 (05/25/2025, 12:23pm). Na 135, K 4.2, BUN 12, creatinine 2.79, GFR 25.79, glucose 108, Ca 8.3, Ca ionized 1.11 (05/25/2025, 12:23pm). Mg 1.2 mg/dL (05/25/2025, 12:23pm). PO4 5.5 mg/dL (05/25/2025, 12:23pm). AST 33, ALT 29, ALK PHOS 64, TBili 0.5 (05/25/2025, 12:23pm). U/A: cloudy yellow, ketones trace, 2+ blood with 0-2 RBC, LE-, nitrite-, WBC 0- 5, epithelial cells 0-2, bacteria 0 (05/25/2025, 5:10pm). Urine drug screen (05/25/2025, 5:10pm): Additional testing in [facility] ER bed #A12B included: CT abd/pelvis without IV contrast (05/25/2025, 12:24pm): 1. No acute traumatic findings within the abdomen or pelvis on unenhanced exam. CT cervical spine without IV contrast (05/25/2025, 12:24pm): 1. No acute cervical spine fracture or subluxation. Mild motion artifact. CT chest without IV contrast (05/25/2025, 12:24pm): 1. Mild motion artifact. No acute traumatic findings within the chest on unenhanced exam. 2. Subpleural airspace opacities of suggestive of atelectasis. 3. No pneumothorax. Portable CXR (05/25/2025, 12:24pm): 1. Cardiomegaly, old left clavicular fracture. 2. No infiltrate, effusion, pulmonary vascular congestion, or pneumothorax. (by my review). Maxillofacial CT without IV contrast (05/25/2025, 12:24pm): 1. No acute facial fracture. 2. Comminuted mildly displaced right orbital floor fracture, as described above. This is likely subacute. CT brain without IV contrast (05/25/2025, 12:24pm): 1. No acute intracranial findings. Moderate motion artifact. 2. No calvarial fractures identified. CT lumbar spine without IV contrast (05/25/2025, 12:24pm): 1. No acute lumbar spine fracture or subluxation. 2. Stable findings following L5-S1 decompression and fusion. Patient was subsequently admitted to the inpatient hospitalist service @ [facility] on 05/25/2025 with the following diagnoses: 1. Acute kidney injury with admission creatinine 2.79 mg/dL, GFR 25.79 mL/min (05/25/2025, 12:23pm), probably due to home-scheduled bumex 1mg PO qam and lisinopril 40mg PO qam. 2. Acute hypovolemic hyponatremia with admission Na 135 mmol/L (05/25/2025, 12:23pm), probably due to home-scheduled bumex 1mg PO qam and bumex-mediated natri-uresis. 3. Acute hypocalcemia with admission Ca 8.3 mg/dL, Ca ionized 1.11 mg/dL (05/25/2025, 12:23pm), probably due to home-scheduled bumex 1mg PO qam and bumex-mediated calci-uresis. 4. Acute hypomagnesemia with admission Mg 1.2 mg/dL (05/25/2025, 12:23pm), probably due to home-scheduled bumex 1mg PO qam and bumex-mediated calci-uresis. 5. Acute hyperphosphatemia with admission PO4 5.5 mg/dL (05/25/2025, 12:23pm), probably due to acute kidney injury. 6. Acute toxic metabolic encephalopathy due to (a) acute kidney injury and (b) chronic opiate dependence (cf., oxycodone 15mg PO q4 prn pain, #84 tablets, no refills, prescribed on discharge date 05/18/2025). 7. Acute hypotension with admission BP 88/76, MAP 80 (05/25/2025, 12:20pm), probably due to (a) acute dehydration from home-scheduled bumex 1mg PO qam and (b) chronic opiate dependence (cf., oxycodone 15mg PO q4 prn pain, #84 tablets, no refills, prescribed on discharge date 05/18/2025). To address #1, patient received 2 liters of 0.9% NS @ 999 mL/hr (05/25/2025, 12:30pm, 2:02pm), followed by 0.5 liters of 0.9% NS @ 121 mL/hr (05/25/2025, 4:15pm), based on a delivery rate of 1 mL of 0.9% NS per kg of body weight per hour, and a body weight of 120.7 kg. At the same time, patient is being held off his home-scheduled bumex 1mg PO qam and lisinopril 40mg PO qam. I will check repeat creatinine level in the 05/26/2025 am. To address #2, patient received 2 liters of 0.9% NS @ 999 mL/hr (05/25/2025, 12:30pm, 2:02pm), followed by 0.5 liters of 0.9% NS @ 121 mL/hr (05/25/2025, 4:15pm), based on a delivery rate of 1 mL of 0.9% NS per kg of body weight per hour, and a body weight of 120.7 kg. At the same time, patient is being held off his home-scheduled bumex 1mg PO qam. I will check repeat Na level in the 05/26/2025 am. To address #3, patient will receive calcium gluconate 1g IV x 3 doses (starting on , 5:57pm). At the same time, patient is being held off his home- scheduled bumex 1mg PO qam. I will check repeat Ca level in the 05/26/2025 am. To address #4, patient received magnesium sulfate 1g I x 1 dose (05/25/2025, 1:00pm), followed by magnesium sulfate 1g IV q2 x 4 doses (starting on 05/25/2025, 6:30pm). At the same time, patient is being held off his home- scheduled bumex 1mg PO qam. I will check repeat Mg level in the 05/26/2025 am. To address #5, patient is being held off his home-scheduled bumex 1mg PO qam and lisinopril 40mg PO qam. I will check repeat PO4 level in the 05/26/2025 am. To address #6, patient received naloxone (aka, Narcan) 0.4mg IV x 1 dose (05/25/2025, 1:59pm) and patient "woke" up transiently, before falling asleep again. Subsequently, patient patient will receive naloxone 0.4mg IV x 1 dose (05/25/2025, 6:33pm) as patient is being held off his home-scheduled oxycodone 15mg PO q4 prn pain, #84 tablets, no refills, prescribed on discharge date 05/18/2025). I will check neuro exam 15 minutes after naloxone 0.4mg IV x 1 dose (05/25/2025, 6:33pm), and again in the 05/26/2025 am. To address #7, patient received 2 liters of 0.9% NS @ 999 mL/hr (05/25/2025, 12:30pm, 2:02pm), followed by 0.5 liters of 0.9% NS @ 121 mL/hr (05/25/2025, 4:15pm), based on a delivery rate of 1 mL of 0.9% NS per kg of body weight per hour, and a body weight of 120.7 kg. At the same time, patient is being held off his home-scheduled bumex 1mg PO qam and lisinopril 40mg PO qam. I will check repeat BP q shift as patient strives to maintain MAP > 65 mm Hg. Allergies Allergy/AdvReac Type Severity Reaction Status Date / Time clindamycin Allergy Intermediate SWELLING Verified 05/20/25 11:34 Iodinated Contrast Media Allergy Intermediate face/eye Verified 05/20/25 11:34 swelling Quinolones Allergy Intermediate HIVES Verified 05/20/25 11:34 tomato AdvReac Unknown swelling Verified 05/20/25 11:34 Home Medications Medication Instructions Recorded Confirmed Type lithium carbonate 300 mg tablet 300 mg PO AMHS 06/04/22 05/25/25 History mirtazapine 30 mg tablet (Remeron) 30 mg PO HS 06/23/22 05/25/25 History fluticasone propionate 50 1 spray intranasal HS PRN allergy 03/16/23 05/25/25 Rx mcg/actuation nasal symptoms #16 grams spray,suspension (Flonase Allergy Relief) FreeStyle Rosalie 2 [place] (flash #1 ea 05/13/23 05/02/25 Rx glucose scanning reader) blood sugar diagnostic (oohiloveTouch #150 ea 11/22/23 05/02/25 Rx Verio test strips) blood-glucose meter (OneTouch #1 ea 11/22/23 05/02/25 Rx Verio Reflect Meter) insulin syringe-needle U-100 1 mL #300 ea 11/22/23 05/02/25 Rx 30 gauge x 1/2" (BD Insulin Syringe Ultra-Fine) lancets 33 gauge (OneTouch Delica #150 ea 11/22/23 05/02/25 Rx Plus Lancet) albuterol sulfate 90 mcg/actuation 2 inh inhalation Q6H PRN shortness 02/24/24 05/25/25 Rx aerosol inhaler (Ventolin HFA) of breath or wheezing #6.7 grams dutasteride 0.5 mg capsule 0.5 mg PO QAM 04/06/24 05/25/25 History glucagon 3 mg/actuation nasal 3 mg intranasal ONCE PRN Severe 04/06/24 05/25/25 History spray (Baqsimi) Hypoglycemia aripiprazole 5 mg tablet 5 mg PO QAM 05/29/24 05/25/25 History insulin glargine 100 unit/mL (3 12 unit subcut HS 07/19/24 05/25/25 History mL) subcutaneous pen (Lantus Solostar U-100 Insulin) ipratropium 0.5 mg-albuterol 3 mg 3 ml inhalation QID PRN wheezing 07/31/24 05/25/25 Rx (2.5 mg base)/3 mL nebulization #90 mL soln nebulizers (Compact Compressor #1 ea 07/31/24 05/02/25 Rx Nebulizer) Botox 200 unit injection See Rx Instructions IM .COMPLEX #1 09/18/24 05/25/25 Rx (onabotulinumtoxinA) ea rosuvastatin 20 mg tablet 20 mg PO QAM #90 tabs 09/19/24 05/25/25 Rx pantoprazole 40 mg tablet,delayed 40 mg PO BID #60 tabs 09/21/24 05/25/25 Rx release trazodone 100 mg tablet 100 mg PO HS 10/03/24 05/25/25 History pen needle, diabetic 32 gauge x #100 ea 10/23/24 05/02/25 Rx 5/32" (BD Vy 2nd Gen Pen Needle) bumetanide 1 mg tablet 1 mg PO QAM #30 tabs 10/26/24 05/25/25 Rx vitamin B complex (Vitamins B 1 cap PO QAM #30 caps 10/26/24 05/25/25 Rx Complex capsule) lorazepam 0.5 mg tablet 0.5 mg PO DAILY PRN Seizure 11/23/24 05/25/25 History Activity levetiracetam 1,000 mg tablet 1,000 mg PO Q12H #60 tabs 11/26/24 05/25/25 Rx ferrous sulfate 325 mg (65 mg 325 mg PO Q OTHER DAY 11/27/24 05/25/25 History iron) tablet metoprolol succinate 25 mg 25 mg PO HS #90 tabs 11/30/24 05/25/25 Rx tablet,extended release 24 hr somatropin 5 mg/1.5 mL (3.3 mg/mL) 0.3 mg (0.09 mL) subcut QPM #2 11/30/24 05/25/25 Rx subcutaneous pen injector syringes (Norditropin FlexPro) clopidogrel 75 mg tablet (Plavix) 75 mg PO QPM 12/03/24 05/25/25 History lacosamide 150 mg tablet 150 mg PO BID #60 tabs 12/26/24 05/25/25 Rx arformoterol 15 mcg/2 mL solution 2 ml inhalation BID 01/16/25 05/25/25 History for nebulization (Brovana) oxybutynin chloride 5 mg 5 mg PO QAM 01/16/25 05/25/25 History tablet,extended release 24 hr Oxygen Home 01/30/25 05/02/25 History metformin 1,000 mg tablet 1,000 mg PO BID #180 tabs 02/26/25 05/25/25 Rx rimegepant 75 mg disintegrating 75 mg PO DAILY PRN Migraine 02/28/25 05/25/25 Rx tablet (Nurtec ODT) Headache #16 tabs magnesium oxide 400 mg (241.3 mg 400 mg PO DAILY 03/01/25 05/25/25 History magnesium) tablet potassium chloride 10 mEq 10 meq PO QPM 03/01/25 05/25/25 History tablet,extended release testosterone 2 pump topical PM #75 grams 03/18/25 05/25/25 Rx nystatin 100,000 unit/gram topical 1 applic topical BID PRN Other 03/19/25 05/25/25 History cream quetiapine 50 mg tablet,extended 50 mg PO QAM 03/19/25 05/25/25 History release 24 hr venlafaxine 150 mg 150 mg PO QAM 03/19/25 05/25/25 History capsule,extended release 24 hr formoterol fumarate 20 mcg/2 mL 20 mcg (2 mL) NEB BIDR #60 vials 03/24/25 05/25/25 Rx solution for nebulization (Perforomist) acetylcysteine 200 mg/mL (20 %) 2 ml inhalation BID PRN Chest 03/26/25 05/25/25 Rx solution congestion #100 mL cholecalciferol (vitamin D3) 50 50 mcg PO QPM #90 caps 03/26/25 05/25/25 Rx mcg (2,000 unit) capsule propranolol 120 mg capsule,24 120 mg PO HS 03/26/25 05/25/25 History hr,extended release sodium chloride 7 % for 1 inh inhalation BID #240 mL 03/26/25 05/25/25 Rx nebulization tiotropium bromide 2.5 2 puff inhalation DAILY #4 grams 03/26/25 05/25/25 Rx mcg/actuation mist for inhalation (Spiriva Respimat) prazosin 5 mg capsule 5 mg PO HS 04/05/25 05/25/25 History ramelteon 8 mg tablet 8 mg PO HS 04/05/25 05/25/25 History venlafaxine 75 mg capsule,extended 75 mg PO QAM 04/05/25 05/25/25 History release 24 hr duloxetine 30 mg capsule,delayed 30 mg PO HS #30 caps 04/12/25 05/25/25 Rx release ondansetron 8 mg disintegrating 8 mg PO Q8H PRN nausea and 04/29/25 05/25/25 Rx tablet vomiting #30 tabs phenazopyridine 200 mg tablet 200 mg PO TID #9 tabs 04/29/25 05/25/25 Rx (Pyridium) aspirin 81 mg capsule 81 mg PO QPM 05/03/25 05/25/25 History budesonide 0.5 mg/2 mL suspension 0.5 mg inhalation QPM 05/03/25 05/25/25 History for nebulization divalproex 500 mg tablet,delayed 1,000 mg PO QAM 05/03/25 05/25/25 History release duloxetine 60 mg capsule,delayed 60 mg PO QAM 05/03/25 05/25/25 History release famotidine 20 mg tablet (Acid 20 mg PO QAM 05/03/25 05/25/25 History [employer] (famotidine)) hydrocortisone 10 mg tablet 10 - 20 mg PO UD 05/03/25 05/25/25 History lisinopril 40 mg tablet 40 mg PO QAM 05/03/25 05/25/25 History tirzepatide 5 mg/0.5 mL 5 mg subcut WK 05/03/25 05/25/25 History subcutaneous pen injector FreeStyle Rosalie 2 S[place] (flash #6 ea 05/06/25 Rx glucose sensor) levothyroxine 150 mcg tablet 150 mcg PO DAILYBB #30 tabs 05/06/25 05/25/25 Rx (Synthroid) desmopressin 0.2 mg tablet 0.4 mg (2 x 0.2 mg) PO BID #120 05/16/25 05/25/25 Rx tabs naloxone 4 mg/actuation nasal 1 spray intranasal ONCE PRN opioid 05/18/25 05/25/25 Rx spray (Narcan) overdose #2 ea oxycodone 5 mg tablet 15 mg (3 x 5 mg) PO Q4H PRN pain 05/18/25 05/25/25 Rx #84 tabs Past Med/Surg History Problem List (Updated 05/25/25 @ 18:42 by Davy Benoit MD, PhD) Opiate dependence Hypotension Toxic metabolic encephalopathy Hyperphosphatemia Hypomagnesemia Hypocalcemia Acute hyponatremia Dizziness (Acute) QUENTIN (acute kidney injury) (Acute) CHI (closed head injury) (Acute) Therapeutic opioid-induced constipation (OIC) Counseling regarding advanced directives and goals of care Generalized pain Bipolar 1 disorder Diabetes Psychogenic nonepileptic seizure Asthma COPD (chronic obstructive pulmonary disease) Intractable back pain (Acute) Encounter for preoperative assessment (Acute) Numbness of right foot Advanced care planning/counseling discussion Palliative care by specialist Back pain at L4-L5 level Bilateral nephrolithiasis (Chronic) Elevated lactic acid level Compartment syndrome of lower extremity Ambulatory dysfunction (Acute) Arthralgia Venous stasis ulcers (Acute) Chronic venous insufficiency (Chronic) Presbyopia of both eyes Epiretinal membrane (ERM) of left eye Ocular hypertension Secondary cataract of left eye with vision obscured Combined form of senile cataract of right eye Abnormal chest CT Demyelinating disease Esophageal dysphagia 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 Current use of proton pump inhibitor Chronic migraine without aura or status migrainosus Anemia (Acute) Ulcerative colitis Mixed hyperlipidemia Lumbar stenosis with neurogenic claudication Arachnoid cyst of posterior cranial fossa Pseudoseizures Idiopathic polyneuropathy Essential tremor Mitral regurgitation Depression Anxiety (Chronic) Medical History Acute flank pain Kidney stones currently causing severe pain History of pneumonia (03/2025) states has been admitted for total of 36 days ytd at [facility] for pneumonia, last was approxl 1 month ago Ocular hypertension Ulcerative colitis Mixed hyperlipidemia Lumbar stenosis with neurogenic claudication Idiopathic polyneuropathy Essential tremor Demyelinating disease Compartment syndrome of lower extremity (02/2025) per hx Chronic venous insufficiency Back pain at L4-L5 level Arthralgia Depression with anxiety Hx of fall (11/2024) History of dysphagia Hematuria On home O2 4 L nc History of recent hospitalization states has been in hospital 36 days this year so far with pneumonia- last was approx 1 month ago Sepsis Pyelonephritis Urinary tract obstruction due to kidney stone Lactic acidosis LPRD (laryngopharyngeal reflux disease) Severe obesity (BMI 35.0-35.9 with comorbidity) Uncontrolled type 2 diabetes mellitus with hyperglycemia Suspect low glycation index meaning his A1c is typically about 2 points lower than what his average glucose would suggest. Hypothyroidism Hypertension Non-occlusive coronary artery disease Acute dehydration hx Witnessed seizure-like activity Nonepileptic episode Chronic narcotic dependence COPD with exacerbation (03/2025) follows with dr. mccarthy (last seen while in hospital at [facility] with pneumonia ~) Anti-cyclic citrullinated peptide antibody positive Restrictive lung disease follows with dr. mccarthy, on O2 4L nc at all times Abnormal PFTs (pulmonary function tests) Bipolar disorder (10/11/22) Obstructive sleep apnea cpap 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 Follows with endocrinology- Secondary adrenal insufficiency Transient alteration of awareness Chronic adrenal insufficiency Leukocytosis Acute asthma exacerbation hx Acute on chronic hypoxic respiratory failure O2 4L nc Migraine Hematoma Growth hormone deficiency Diaphoresis hx Acute hypoxic respiratory failure hx Influenza A (12/2024) hx- Status epilepticus (09/13/24) Knee hemarthrosis, right (09/13/24) Acute on chronic anemia (09/13/24) Acute metabolic encephalopathy (09/13/24) hx Laceration of toe of right foot Closed fracture of right fibula with malunion Right fibular fracture hx Acute on chronic respiratory failure with hypoxia and hypercapnia Shortness of breath only if not wearing oxygen Chronic respiratory failure with hypoxia Obesity CKD (chronic kidney disease), stage III Peripheral edema Atrial fibrillation (02/15/24) no cardioversion- has loop recorder and watchmans device, follows with dr. kilgore (03/2025 while inpt.) Chronic low back pain Panhypopituitarism Lumbosacral radiculopathy Toxic encephalopathy Chest pain hx Acute dyspnea hx Acute CHF hx Hypoglycemia hx Syncope and collapse Reason for loop recorder No recent issues since bed bound from femur fracture in Sep 2022 per patient Internal hemorrhoids Recurrent seizures (05/01/25) goes sometimes months without seizures, then may may have 2 in one day- last seizure- 05/01/25- grand mal, lost control of bowel and bladder- informed neuro, dr. villa- told to stay on meds (last saw dr. villa on 04/30/25) Pituitary diabetes insipidus Spondylolysis, lumbar region Right lumbar radiculopathy HTN (hypertension) Adrenal insufficiency Pituitary adenoma Hyperactive gag reflex BRCA gene positive tested positive in Aug 2023 [place] Family history of BRCA gene mutation PTSD (post-traumatic stress disorder) Epidural lipomatosis Chronic left sacroiliac pain Benzodiazepine overdose hx Presence of cardiac device Loop recorder > placed at [facility]- last checked fall 2023 Hx of fracture of foot Sep 2022- right > cast since removed > still gets painful Fracture of fibula, right, closed Cerebral concussion May 2023 during seizure > no further issues Orthostatic hypotension Sensorineural hearing loss of both ears Rectal bleeding on occasion History of COVID-19 10/2021 - fatigue; resolved. Mitral valve regurgitation follows with Dr. kilgore Vertigo Lower extremity edema Elevated LFTs Bilateral hand pain Pituitary neoplasm Dx'ed in 2001- s/p surgical resection and XRT Repeat surgery in 2018 secondary to tumor regrowth at [facility] Prostate mass benign Bladder mass benign Surgical History Presence of Watchman left atrial appendage closure device (02/2024) eric History of arthroplasty of left knee (2014) S/P TURP (status post transurethral resection of prostate) History of lumbar fusion (07/2022[place] [facility] [place] History of cardiac cath (07/2021) 07/2021 - no stents- no mi - [facility]- follows with dr. 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 Prostate cancer Heart disease Osteoarthritis Mother , at 84 years of age from acute [place]. Cardiac disorder Grandmother (Maternal) Myocardial infarction Other Asthma Cancer Hypertension No family history of adverse response to anesthesia No family history of bleeding disorder Stroke Denies family history of Ovarian cancer Breast cancer Colorectal cancer Social History Smoking Status: Never smoker Tobacco Type: Smokeless Tobacco (Dip or Chew) Second Hand Exposure: No; Do You Dip or Chew Tobacco: Yes; Hx Alcohol Use: No Hx Substance Use: No Preferred Language: Grenadian Communication Ability: Effective Communication Ability Comment: Unable to obtain due to patient condition. Visual Impairment: Limited Hearing Ability: Normal [employer] Required: No Beliefs That Will Affect Care: None marital status: Single Current Living Situation: Spouse Current Living Situation Comment: and daughter in [place] current occupational status: disabled How many Children do You have: 3 How many Children do You have Comment: able to assist with care if needed Feels Safe at Home: Yes Childhood Exposure to Second-Hand Smoke: Yes (parents smoked) Diet: regular Diet Comment: going to be starting low carb/low calorie diet. caffeine: No (1/2 20 oz bottle of mountain dew. ) during the past year weight has: increased > 10 lbs Physical Activity Frequency: Daily Physical Activity Frequency Comment: walking, 1.5 miles daily. Seatbelt Use: always Do you think of yourself as: straight/heterosexual Gender Identity: Male Assistive Devices: Oxygen - Continuous and Walker Review of Systems Constitutional: As above in the History of Present Illness. Physical Exam Constitutional: General: Comfortable, coherent, and cooperative. Not confused or obtunded, but lethargic. Patient speaks very slowly, but in complete, fluent, and articulate 3-5 word sentences without pause, interruption, cough, or wheeze with O2 sat 94% on room air (05/25/2025, 6:30pm).. HEENT: Normocephalic, atraumatic. No nystagmus, gaze paresis, anisocoria, miosis, mydriasis, hyphema, scleral injection, conjunctivitis, or pterygium. No otorrhea or rhinorrhea. No pharyngeal erythema, edema, or discharge. Neck: Supple, no stridor, bruit, goiter, or hepato-jugular reflux. Jugular venous pressure is estimated to be 3 cm above the sternal angle of Roberto, which in turn, is 5 cm above the level of the right atrium; with jugular venous pressure estimated to be 8 cm, then, there is no jugular venous distention on 05/25/2025. Lymphatics: No cervical (anterior/posterior), supraclavicular, infraclavicular, axillary, epitrochlear, or inguinal adenopathy. Chest: Symmetric rise and fall with respirations. Non-tender to palpation. Lungs: Clear to auscultation and percussion. Heart: Regular rate and rhythm. S1 and S2 noted. No S3 or S4 summation gallop. No tripartite friction rub. Grade II/ early systolic murmur @ LLSB without radiation to the carotids, axilla, or back, and which remains invariant in regards to the respiratory cycle. Abdomen: Soft, non-tender, non-distended. No rebound, guarding, Moore's sign, or organomegaly. Bowel sounds auscultated in all 4 quadrants. Extremities: No clubbing, cyanosis, or edema. Skin: No decubitus ulcer, exanthem, or enanthem. Neuro: Awake, but lethargic and oriented in regards to person, place, time, and situation. DTR+. 5/5 motor strength in all 4 extremities, both proximally and distally. No myoclonus, tremors, or tics. Genito-urinary: No urethral discharge. No puentes catheter. Results & Data Results & Data Vital Signs (Past 12 Hours) Vital Signs Temp Pulse Pulse Resp BP BP Pulse Ox 05/25/25 17:00 92 H 19 90/51 L 93 05/25/25 16:45 90 20 93/55 L 96 05/25/25 16:41 92 H 05/25/25 16:30 90 16 100/59 L 92 05/25/25 16:15 92 H 20 106/60 96 05/25/25 16:00 91 H 21 114/66 96 05/25/25 15:45 89 20 94/59 L 94 05/25/25 15:30 89 20 88/63 L 94 05/25/25 15:04 87 22 84/48 L 94 05/25/25 15:00 88 18 84/48 L 96 05/25/25 15:00 88 19 95 05/25/25 14:48 88 22 97 05/25/25 14:45 115/66 05/25/25 14:42 87 24 97 05/25/25 14:36 87 23 95 05/25/25 14:30 105/62 05/25/25 14:24 87 21 95 05/25/25 14:15 103/59 L 05/25/25 14:12 88 23 94 05/25/25 14:00 86 21 96 05/25/25 14:00 109/62 05/25/25 13:54 83/51 L 05/25/25 13:48 84 23 95 05/25/25 13:45 81/54 L 05/25/25 13:45 85 21 95 05/25/25 13:33 85 23 94 05/25/25 13:30 102/57 L 05/25/25 13:24 86 21 95 05/25/25 13:21 84 22 96 05/25/25 13:15 100/54 L 05/25/25 13:09 86 19 94 05/25/25 13:00 87 24 96 05/25/25 13:00 105/65 05/25/25 12:54 110/66 05/25/25 12:30 97 05/25/25 12:29 85 05/25/25 12:20 36.6 C 88 24 88/76 L 98 05/25/25 12:20 36.6 C 88 24 88/76 L 98 05/25/25 12:20 O2 Del Method O2 Flow Rate 05/25/25 17:00 05/25/25 16:45 05/25/25 16:41 05/25/25 16:30 05/25/25 16:15 05/25/25 16:00 05/25/25 15:45 05/25/25 15:30 05/25/25 15:04 05/25/25 15:00 Room Air 05/25/25 15:00 05/25/25 14:48 05/25/25 14:45 05/25/25 14:42 05/25/25 14:36 Room Air 05/25/25 14:30 05/25/25 14:24 Room Air 05/25/25 14:15 05/25/25 14:12 Room Air 05/25/25 14:00 Room Air 05/25/25 14:00 05/25/25 13:54 05/25/25 13:48 05/25/25 13:45 05/25/25 13:45 05/25/25 13:33 Room Air 05/25/25 13:30 05/25/25 13:24 Room Air 05/25/25 13:21 Room Air 05/25/25 13:15 05/25/25 13:09 Room Air 05/25/25 13:00 Room Air 05/25/25 13:00 05/25/25 12:54 05/25/25 12:30 Room Air 05/25/25 12:29 05/25/25 12:20 Room Air 0 05/25/25 12:20 Room Air 05/25/25 12:20 Room Air Laboratory Results As above in the History of Present Illness. Diagnostic Findings As above in the History of Present Illness. Medications Administered As above in the History of Present Illness. Code Status & VTE Plan VTE Prophylaxis Plan VTE Prophylaxis will be ordered: Yes PG Care Time/CCT Total # of Minutes Spent Total Time Spent with Patient: Total time spent is greater than 50% in coordination of care (as documented) at patient's floor/unit and/or counseling patient: Coding Level of Care Code 70293 INT INP/OBS CARE 3/75MIN Diagnoses QUENTIN (acute kidney injury) N17.9 Acute hyponatremia E87.1 Hypocalcemia E83.51 Hypomagnesemia E83.42 Hyperphosphatemia E83.39 Toxic metabolic encephalopathy G92.8 Hypotension I95.9 Opiate dependence F11.20
[2025-05-25 18:11] LABS: Amphetamines+Metham, Urine Neg (Neg); MDMA (Ecstacy), Urine Neg (Neg); Marijuana, Urine Neg (Neg)
[2025-05-25 18:20] LABS: Magnesium 1.2 mg/dl (1.7-2.4)
[2025-05-25] MEDS: NALOXONE HCL 0.4 MG/1 ML VIAL/CARP IV STA (19:13)
[2025-05-25] MEDS: CALCIUM GLUCONATE 1,000 MG/60 ML BAG IV SCH (19:15)
[2025-05-25] MEDS: MAGNESIUM SULFATE / D5W 1 GM/100 ML BAG IV SCH (19:15)
[2025-05-25] MEDS: FORMOTEROL 20 MCG/2 ML VIAL INH SCH (19:40)
[2025-05-25] MEDS: BUDESONIDE 0.5 MG/2 ML VIAL (PULMICORT) INH SCH (19:40)
[2025-05-25] MEDS: HYDROCORTISONE 10 MG TAB PO SCH (19:52)
[2025-05-25] MEDS: DESMOPRESSIN ACETATE 0.1 MG TAB PO SCH (19:52)
[2025-05-25] MEDS: levETIRAcetam 500 MG TAB PO SCH (19:54)
[2025-05-25] MEDS: CLOPIDOGREL BISULFATE 75 MG TAB PO SCH (19:55)
[2025-05-25] MEDS: ASPIRIN 81 MG ECTAB PO SCH (19:55)
[2025-05-25] MEDS: LACOSAMIDE 50 MG TABLET PO SCH (20:46)
[2025-05-25] MEDS ORDERED: NON-FORMULARY MEDICATION (Testosterone 20.25 mg/1.25 gram (1.62 %) gel in metered-dose pum TOP SCH (21:00)
[2025-05-25] MEDS ORDERED: PHENAZOPYRIDINE HCL 200 MG TAB PO SCH (21:00)
[2025-05-25] MEDS: ACETAMINOPHEN 1,000 MG/100 ML VIAL IV STA (23:37)
[2025-05-26] MEDS ORDERED: DEXTROSE 50% 50 ML SYRINGE IV PRN (03:35)
[2025-05-26] MEDS ORDERED: GLUCAGON FOR INJ 1 MG VIAL SQ PRN (03:35)
[2025-05-26] MEDS ORDERED: CARBOHYDRATES FOR HYPOGLYCEMIA PO PRN (03:35)
[2025-05-26] MEDS ORDERED: GLUCOSE 40% GEL 15 GM TUBE PO PRN (03:35)
[2025-05-26] MEDS ORDERED: GLUCOSE 10 TAB/TUBE PO PRN (03:35)
[2025-05-26] MEDS: LEVOTHYROXINE SODIUM 150 MCG TABLET PO SCH (05:46)
[2025-05-26 06:01] LABS: Hematocrit (blood only) 25.9 % (42.0-52.0); Hemoglobin 8.6 g/dl (14.0-18.0); Immature Granulocytes # (auto) 0.03 K/uL (0.01-0.20); Immature Granulocytes % (auto) 0.7 %; Mean Corpuscular Hemoglobin 28.6 pg (25.0-34.0); Mean Corpuscular Volume 86.0 fL (80.0-100.0); Platelet Count 194 K/uL (130-400); RDW Standard Deviation 45.4 fL (36.4-46.3); Red Blood Count 3.01 M/uL (4.70-6.10); White Blood Count 4.58 K/ul (4.8-10.8)
[2025-05-26 06:37] LABS: Alanine Aminotransferase 25.0 U/L (7-52); Albumin Globulin Ratio 2.1 (0.9-2); Alkaline Phosphatase 61.0 U/L (34-104); Anion Gap 6.0 (3-11); Bilirubin,Total 0.4 mg/dl (0.2-1.0); Blood Urea Nitrogen 12.0 mg/dl (6-23); Calcium 8.5 mg/dl (8.6-10.3); Carbon Dioxide 26.0 mmol/L (21-32); Chloride 102.0 mmol/L (98-107); Creatinine Clr Calc Pharmacy 61.0 ml/min; Globulin 1.7 gm/dl (2.5-4.0); Glucose 98.0 mg/dl (70-99(Fasting)); Magnesium 2.1 mg/dl (1.7-2.4); Potassium 4.7 mmol/L (3.5-5.1); Sodium 134.0 mmol/L (136-145); Total Protein 5.2 gm/dl (6.0-8.3)
[2025-05-26] MEDS: SODIUM CHLORIDE 0.9% 1,000 ML IV ONE (08:31)
[2025-05-26] MEDS: HYDROCORTISONE 10 MG TAB PO SCH (09:36)
[2025-05-26] MEDS: ARIPiprazole 5 MG TAB PO SCH (09:36)
[2025-05-26] MEDS: DIVALPROEX DELAY RELEASE 500 MG TAB PO SCH (09:36)
[2025-05-26] MEDS: VENLAFAXINE HCL XR 150 MG CAPXR PO SCH (09:37)
[2025-05-26] MEDS: VENLAFAXINE HCL XR 75 MG CAPXR PO SCH (09:37)
[2025-05-26] MEDS: INSULIN ASPART PER UNIT CHARGE SC SCH (09:55)
[2025-05-26] MEDS: FAMOTIDINE 20 MG TAB PO SCH (09:56)
--- NOTE | 2025-05-26 12:45 | Electrocardiogram Report ---
Test Reason : Blood Pressure : */* mmHG Vent. Rate : 89 BPM Atrial Rate : 89 BPM P-R Int : 194 ms QRS Dur : 104 ms QT Int : 380 ms P-R-T Axes : 59 3 36 degrees QTcB Int : 463 ms Normal sinus rhythm Normal ECG When compared with ECG of 13-May-2025 13:31, No significant change was found Confirmed by Bo Edwards ([id number]) on 05/26/2025 12:45:03 PM Referred By: REFERRED SELF Confirmed By: Bo Edwards
[2025-05-26] MEDS: ACETAMINOPHEN 1,000 MG/100 ML VIAL IV STA (21:20)
--- NOTE | 2025-05-26 22:00 | Hospitalist Progress Note ---
Date of Service May 26, 2025 Assessment & Plan (1) QUENTIN (acute kidney injury): Plan: As above in the History of Present Illness. (2) Acute hyponatremia: Plan: As above in the History of Present Illness. (3) Hypocalcemia: Plan: As above in the History of Present Illness. (4) Hypomagnesemia: Plan: As above in the History of Present Illness. (5) Hyperphosphatemia: Plan: As above in the History of Present Illness. (6) Toxic metabolic encephalopathy: Plan: As above in the History of Present Illness. (7) Hypotension: Plan: As above in the History of Present Illness. (8) Opiate dependence: Plan: As above in the History of Present Illness. Admission and Anticipated Discharge Date Admission Date: May 25, 2025 Subjective "I feel better than yesterday. Still weak, though." Review of Systems Constitutional: Positive for tremors generalized. Negative for antecedent/coincident fevers, chills, diaphoresis, cough, wheeze, sore throat, hemoptysis, chest pains, palpitations, pleurisy, nausea, vomiting, diarrhea, abdominal pain, pelvic pain, hematemesis, hematochezia, melena, hematuria, dysuria, frequency, urgency, headaches, dizziness, lightheadedness, visual changes, hearing changes, syncope, travel history, sick contacts, or food/drug ingestions novel or new. All other review of systems are reported as negative by the patient on 05/26/2025. Physical Exam Constitutional: General: Comfortable, coherent, and cooperative. Not confused, obtunded, or lethargic. Patient speaks very slowly, but in complete, fluent, and articulate 3-5 word sentences without pause, interruption, cough, or wheeze with O2 sat 96% on 2 liters/minute O2 via nasal cannula (05/26/2025, 8:10pm). HEENT: Normocephalic, traumatic with central forehead ecchymosis. No nystagmus, gaze paresis, anisocoria, miosis, mydriasis, hyphema, scleral injection, conjunctivitis, or pterygium. No otorrhea or rhinorrhea. No pharyngeal erythema, edema, or discharge. Neck: Supple, no stridor, bruit, goiter, or hepato-jugular reflux. Jugular venous pressure is estimated to be 3 cm above the sternal angle of Roberto, which in turn, is 5 cm above the level of the right atrium; with jugular venous pressure estimated to be 8 cm, then, there is no jugular venous distention on 05/26/2025. Lymphatics: No cervical (anterior/posterior), supraclavicular, infraclavicular, axillary, epitrochlear, or inguinal adenopathy. Chest: Symmetric rise and fall with respirations. Non-tender to palpation. Lungs: Clear to auscultation and percussion. Heart: Regular rate and rhythm. S1 and S2 noted. No S3 or S4 summation gallop. No tripartite friction rub. Grade II/ early systolic murmur @ LLSB without radiation to the carotids, axilla, or back, and which remains invariant in regards to the respiratory cycle. Abdomen: Soft, non-tender, non-distended. No rebound, guarding, Moore's sign, or organomegaly. Bowel sounds auscultated in all 4 quadrants. Extremities: No clubbing, cyanosis, or edema. Skin: No decubitus ulcer, exanthem, or enanthem. Neuro: Awake and oriented in regards to person, place, time, and situation. DTR+. 5/5 motor strength in all 4 extremities, both proximally and distally. No myoclonus or tics. Positive for generalized tremors. Genito-urinary: No urethral discharge. No puentes catheter. Results & Data Results & Data Vital Signs (Past 12 Hours) Vital Signs Temp Pulse Pulse Resp BP Pulse Ox O2 Del Method 05/26/25 20:10 37.3 C 100 H 18 164/79 H 96 Nasal Cannula 05/26/25 19:34 99 H 17 96 Nasal Cannula 05/26/25 15:38 36.9 C 98 H 20 135/86 97 Room Air 05/26/25 14:07 95 H 05/26/25 12:24 36.7 C 88 20 156/83 H 93 Nasal Cannula 05/26/25 10:43 86 O2 Flow Rate 05/26/25 20:10 2 05/26/25 19:34 2 05/26/25 15:38 05/26/25 14:07 05/26/25 12:24 2 05/26/25 10:43 Laboratory Results WBC 6.70, N39 L38 M14 E7 B1, Hb 9.0, MCV 83.9, MCHC 33.8, platelet 232 (05/25/2025, 12:23pm). INR 1.1 (05/25/2025, 12:23pm). Na 135, K 4.2, BUN 12, creatinine 2.79, GFR 25.79, glucose 108, Ca 8.3, Ca ionized 1.11 (05/25/2025, 12:23pm). Mg 1.2 mg/dL (05/25/2025, 12:23pm). PO4 5.5 mg/dL (05/25/2025, 12:23pm). AST 33, ALT 29, ALK PHOS 64, TBili 0.5 (05/25/2025, 12:23pm). U/A: cloudy yellow, ketones trace, 2+ blood with 0-2 RBC, LE-, nitrite-, WBC 0- 5, epithelial cells 0-2, bacteria 0 (05/25/2025, 5:10pm). Urine drug screen (05/25/2025, 5:10pm): preliminary results positive for opiates as of 05/26/2025, 9:55pm. Diagnostic Findings CT abd/pelvis without IV contrast (05/25/2025, 12:24pm): 1. No acute traumatic findings within the abdomen or pelvis on unenhanced exam. CT cervical spine without IV contrast (05/25/2025, 12:24pm): 1. No acute cervical spine fracture or subluxation. Mild motion artifact. CT chest without IV contrast (05/25/2025, 12:24pm): 1. Mild motion artifact. No acute traumatic findings within the chest on unenhanced exam. 2. Subpleural airspace opacities of suggestive of atelectasis. 3. No pneumothorax. Portable CXR (05/25/2025, 12:24pm): 1. Cardiomegaly, old left clavicular fracture. 2. No infiltrate, effusion, pulmonary vascular congestion, or pneumothorax. (by my review). Maxillofacial CT without IV contrast (05/25/2025, 12:24pm): 1. No acute facial fracture. 2. Comminuted mildly displaced right orbital floor fracture, as described above. This is likely subacute. CT brain without IV contrast (05/25/2025, 12:24pm): 1. No acute intracranial findings. Moderate motion artifact. 2. No calvarial fractures identified. CT lumbar spine without IV contrast (05/25/2025, 12:24pm): 1. No acute lumbar spine fracture or subluxation. 2. Stable findings following L5-S1 decompression and fusion. CT brain without IV contrast (05/26/2025, 6:10pm): (to evaluate for possible post-admission development of acute bleed, mass, or midline shift in patient with occasional generalized tremors on 05/26/2025 am exam)(cf., acute CVA is deemed unlikely; in contrast, opiate withdrawal in the setting of chronic pain disorder on oxycodone 15mg PO q4 prn (but actually taking q4 [id number] at home) for chronic lower back pain is considered very likely on 05/26/2025). If acute CVA is ruled out on 05/26/2025, 6:10pm CT brain without IV contrast, patient may be restarted on his home-scheduled oxycodone 15mg PO q4 prn for chronic lower back pain on 05/26/2025 pm. PG Care Time/CCT Total # of Minutes Spent Total Time Spent with Patient: Total time spent is greater than 50% in coordination of care (as documented) at patient's floor/unit and/or counseling patient: Coding Level of Care Code 26978 SUB INP/OBS CARE 3/50MIN Diagnoses QUENTIN (acute kidney injury) N17.9 Acute hyponatremia E87.1 Hypocalcemia E83.51 Hypomagnesemia E83.42 Hyperphosphatemia E83.39 Toxic metabolic encephalopathy G92.8 Hypotension I95.9 Opiate dependence F11.20
--- NOTE | 2025-05-27 01:52 | CT Scan Report ---
Exam(s): CT HEAD Without Contrast EXAM: CT Head Without Intravenous Contrast CLINICAL HISTORY: Reason for exam: tremors s/p fall with face plant onto ground. TECHNIQUE: Axial computed tomography images of the head/brain without intravenous contrast. CTDI is 37.42 mGy and DLP is 625.8 mGy-cm. Automated exposure control was utilized for the study. A dose lowering technique was utilized adhering to the principles of ALARA. COMPARISON: Prior head CT from May 25, 2025. FINDINGS: This study is limited secondary to motion artifact. Brain: Unremarkable. No hemorrhage. No significant white matter disease. No edema. Ventricles: Unremarkable. No ventriculomegaly. Bones/joints: Unremarkable. No acute fracture. Soft tissues: Unremarkable. Sinuses: Unremarkable as visualized. No acute sinusitis. Mastoid air cells: Unremarkable as visualized. No mastoid effusion. IMPRESSION: No evidence of acute intracranial pathology. Electronically signed by: Donna Sommer MD 05/27/25 01:52 AM
[2025-05-27 06:37] LABS: Anion Gap 7.0 (3-11); Blood Urea Nitrogen 6.0 mg/dl (6-23); Calcium 9.0 mg/dl (8.6-10.3); Carbon Dioxide 28.0 mmol/L (21-32); Chloride 105.0 mmol/L (98-107); Creatinine Clr Calc Pharmacy 118.2 ml/min; Glucose 109.0 mg/dl (70-99(Fasting)); Magnesium 1.5 mg/dl (1.7-2.4); Potassium 4.2 mmol/L (3.5-5.1); Sodium 140.0 mmol/L (136-145)
[2025-05-27] MEDS ORDERED: SODIUM PHOSPHATE 3 MMOL/1 ML 5 ML VIAL IV STA (07:57)
[2025-05-27] MEDS: ACETAMINOPHEN 325 MG TAB PO PRN (08:39)
[2025-05-27] MEDS: POT PHOSPHATE MONOBASIC W/ SOD TAB PO SCH (08:55)
[2025-05-27] MEDS: MAGNESIUM SULFATE / D5W 1 GM/100 ML BAG IV SCH (08:56)
[2025-05-27 12:57] LABS: Magnesium 1.8 mg/dl (1.7-2.4)
[2025-05-27 14:35] LABS: Creatine Kinase 83.0 U/L (30-223)
[2025-05-27] MEDS ORDERED: SODIUM PHOSPHATE 3 MMOL/1 ML INFUSION IV STA (14:48)
--- NOTE | 2025-05-27 16:00 | Discharge Summary ---
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 quadrants. Extremities: No clubbing, cyanosis, or edema. Skin: No decubitus ulcer, exanthem, or enanthem. Neuro: Awake and oriented in regards to person, place, time, and situation. DTR+. 5/5 motor strength in all 4 extremities, both proximally and distally. No myoclonus or tics or tremors. Genito-urinary: No urethral discharge. No puentes catheter. Discharge Plan Discharge Items Patient Disposition: Home - Self-Care Reason For Visit: ACUTE KIDNEY INJURY Discharge Diagnosis: 1. Acute kidney injury with admission creatinine 2.79 mg/dL, GFR 25.79 mL/min (05/25/2025, 12:23pm), probably due to home-scheduled bumex 1mg PO qam and lisinopril 40mg PO qam. RESOLVED with discharge creatinine 0.88 mg/dL, GFR 100.9 mL/min (05/27/2025, 5:51am), OFF home-scheduled bumex 1mg PO qam and OFF lisinopril 40mg PO qam. 2. Acute hypovolemic hyponatremia with admission Na 135 mmol/L (05/25/2025, 12:23pm), probably due to home-scheduled bumex 1mg PO qam and bumex-mediated natri-uresis. RESOLVED with discharge Na 140 mmol/L (05/27/2025, 5:51am), OFF home-scheduled bumex 1mg PO qam. 3. Acute hypocalcemia with admission Ca 8.3 mg/dL, Ca ionized 1.11 mg/dL (05/25/2025, 12:23pm), probably due to home-scheduled bumex 1mg PO qam and bumex-mediated calci-uresis. RESOLVED with discharge Ca 9.0 mg/dL (05/27/2025, 5:51am), OFF home-scheduled bumex 1mg PO qam. 4. Acute hypomagnesemia with admission Mg 1.2 mg/dL (05/25/2025, 12:23pm), probably due to home-scheduled bumex 1mg PO qam and bumex-mediated calci-uresis. RESOLVED with discharge Mg 1.8 mg/dL (05/27/2025, 11:33am), OFF home-scheduled bumex 1mg PO qam. 5. Acute hyperphosphatemia with admission PO4 5.5 mg/dL (05/25/2025, 12:23pm), probably due to acute kidney injury. RESOLVED with discharge PO4 2.0 mg/dL (05/27/2025, 1:48pm). Hence, patient has actually developed acute hypophosphatemia on hospital discharge date 05/27/2025. 6. Acute toxic metabolic encephalopathy due to (a) acute kidney injury and (b) chronic opiate dependence (cf., oxycodone 15mg PO q4 prn pain, #84 tablets, no refills, prescribed on discharge date 05/18/2025). RESOLVED given resolution of (a) acute kidney injury and holding OFF home-scheduled oxycodone 15mg PO q4 prn pain (which the patient actually takes on an [id number] basis at home) while patient remained in [facility]. 7. Acute hypotension with admission BP 88/76, MAP 80 (05/25/2025, 12:20pm), probably due to (a) acute dehydration from home-scheduled bumex 1mg PO qam and (b) chronic opiate dependence (cf., oxycodone 15mg PO q4 prn pain, #84 tablets, no refills, prescribed on discharge date 05/18/2025). RESOLVED with discharge BP 144/81 (05/27/2025, 2:45pm) given resolution of (a) acute dehydration from home-scheduled bumex 1mg PO qam and holding OFF home-scheduled oxycodone 15mg PO q4 prn pain (which the patient actually takes on an [id number] basis at home) while patient remained in [facility]. Condition on Discharge: Fair Activity: Resume your previous activity Lifting: Gradually increase as tolerated Bathing: No limitations Sexual Activity: When tolerated Exercise/Sports: Gradually increase as tolerated Weightbearing: Full weightbearing Non-emergency contact: Primary Care Provider Call non-emergency contact if: you have any medication questions Follow-up/Referrals: Larry Amaral MD [Primary Care Provider] - 06/13/25 10:30 am (APPT. W/ Laura Pro PA-C) Diet: Heart Healthy Addtl Attending Provider Instructions: See your PCP Dr. Larry Amaral within 5-7 days of hospital discharge to discuss whether you should resume or not resume your home-scheduled bumex 1mg PO qam and your home-scheduled lisinopril 40mg PO qam. Until then, do NOT resume your home-scheduled bumex 1mg PO qam or your home-scheduled lisinopril 40mg PO qam on hospital discharge date 05/27/2025. Pending Studies at Discharge: Yes Studies:: Repeat phosphorus level testing within 5-7 days of hospital discharge. Stand-Alone Forms: [facility], Smoking Cessation Medications and DC Order Prescriptions: New potassium phosphate, monobasic 500 mg tablet,soluble 1,000 mg PO BID Qty: 2 0RF Continued clopidogrel [Plavix] 75 mg tablet 75 mg PO QPM lithium carbonate 300 mg tablet 300 mg PO AMHS fluticasone propionate [Flonase Allergy Relief] 50 mcg/actuation spray,suspension 1 spray intranasal HS PRN (Reason: allergy symptoms) Qty: 16 0RF Rx Instructions: administer into each nostril (DME) insulin syringe-needle U-100 [BD Insulin Syringe Ultra-Fine] 1 mL 30 gauge x 1/2" syringe See Rx Instructions .Route Qty: 300 1RF Rx Instructions: use tid (DME) OneTouch Verio test strips Strip See Rx Instructions .MEDSUPPLY Qty: 150 5RF Rx Instructions: check blood sugars 4 times a day (DME) blood-glucose meter [OneTouch Verio Reflect Meter] Misc See Rx Instructions miscellaneous .MEDSUPPLY Qty: 1 0RF Rx Instructions: As directed (DME) lancets [OneTouch Delica Plus Lancet] 33 gauge misc See Rx Instructions .MEDSUPPLY Qty: 150 5RF Rx Instructions: As directed check blood sugars 4 times a day Botox 200 unit recon soln See Rx Instructions IM .COMPLEX Qty: 1 3RF Rx Instructions: 155 UNITS IM IN THE FACE AND NECK MUSCLES EVERY 12 WEEKS PER MIGRAINE PROTOCOL rosuvastatin 20 mg tablet 20 mg PO QAM Qty: 90 2RF (DME) pen needle, diabetic [BD Vy 2nd Gen Pen Needle] 32 gauge x 5/32" needle See Rx Instructions miscellaneous .MEDSUPPLY Qty: 100 3RF Rx Instructions: inject with a new pen needle daily lorazepam 0.5 mg tablet 0.5 mg PO DAILY PRN (Reason: Seizure Activity) levetiracetam 1,000 mg tablet 1,000 mg PO Q12H Qty: 60 6RF Norditropin FlexPro 5 mg/1.5 mL (3.3 mg/mL) pen injector 0.3 mg SQ QPM Qty: 2 5RF metoprolol succinate 25 mg tablet extended release 24 hr 25 mg PO HS Qty: 90 3RF lacosamide 150 mg tablet 150 mg PO BID Qty: 60 5RF (DME) Oxygen Home Liters Per Minute See Rx Instructions .Route Rx Instructions: 4 L o2 via NC As directed, metformin 1,000 mg tablet 1,000 mg PO BID Qty: 180 3RF Hold Instructions: Per Dr Voss to hold as of 11/23/22 testosterone 20.25 mg/1.25 gram (1.62 %) gel in metered-dose pump 2 pump TOP PM Qty: 75 5RF Rx Instructions: apply 1 pump amount over max area of EACH upper arm and shoulder PDMP Queried ok to fill 03/17/2023 DS cholecalciferol (vitamin D3) 50 mcg (2,000 unit) capsule 50 mcg PO QPM Qty: 90 1RF levothyroxine [Synthroid] 150 mcg tablet 150 mcg PO DAILYBB Qty: 30 5RF (DME) FreeStyle Rosalie 2 Sensor Kit See Rx Instructions .Route Qty: 6 3RF Rx Instructions: Change every 14 days desmopressin 0.2 mg tablet 0.4 mg PO BID Qty: 120 5RF (DME) FreeStyle Rosalie 2 [place] Misc See Rx Instructions .Route Qty: 1 0RF Rx Instructions: Check blood glucose before each meal mirtazapine [Remeron] 30 mg tablet 30 mg PO HS albuterol sulfate [Ventolin HFA] 90 mcg/actuation HFA aerosol inhaler 2 inh inhalation Q6H PRN (Reason: shortness of breath or wheezing) Qty: 6.7 2RF venlafaxine 75 mg capsule,extended release 24hr 75 mg PO QAM Rx Instructions: Take with 150mg cap prazosin 5 mg capsule 5 mg PO HS ramelteon 8 mg tablet 8 mg PO HS (DME) nebulizers [Compact Compressor Nebulizer] [facility] [place] See Rx Instructions .Route Qty: 1 0RF Rx Instructions: One compact compressor nebulizer. Use as directed. Please include tubing, mouth piece and cup. ipratropium-albuterol 0.5 mg-3 mg(2.5 mg base)/3 mL solution for nebulization 3 ml inhalation QID PRN (Reason: wheezing) Qty: 90 0RF trazodone 100 mg tablet 100 mg PO HS ondansetron 8 mg tablet,disintegrating 8 mg PO Q8H PRN (Reason: nausea and vomiting) Qty: 30 0RF phenazopyridine [Pyridium] 200 mg tablet 200 mg PO TID Qty: 9 2RF Rx Instructions: Can take three times daily for up to three days; then must give the body a two day break ferrous sulfate 325 mg (65 mg iron) tablet 325 mg PO Q OTHER DAY insulin glargine [Lantus Solostar U-100 Insulin] 100 unit/mL (3 mL) insulin pen 12 unit SUBCUT HS Hold Instructions: Has been on hold for a few weeks per pt Patient Comments: PER PT HE IS TAKING 12 UNITS -CONFIRMED ON 07/19/24 Nurtec ODT 75 mg tablet,disintegrating 75 mg PO DAILY PRN (Reason: Migraine Headache) Qty: 16 6RF magnesium oxide 400 mg (241.3 mg magnesium) tablet 400 mg PO DAILY potassium chloride 10 mEq tablet extended release 10 meq PO QPM propranolol 120 mg capsule,extended release 24hr 120 mg PO HS Spiriva Respimat 2.5 mcg/actuation mist 2 puff inhalation DAILY Qty: 4 4RF sodium chloride 7 % solution for nebulization 1 inh inhalation BID Qty: 240 3RF acetylcysteine 200 mg/mL (20 %) solution 2 ml inhalation BID PRN (Reason: Chest congestion) Qty: 100 6RF dutasteride 0.5 mg capsule 0.5 mg PO QAM Rx Instructions: TAKE 1 CAPSULE BY MOUTH DAILY IN THE MORNING Baqsimi 3 mg/actuation spray,non-aerosol 3 mg intranasal ONCE PRN (Reason: Severe Hypoglycemia) Rx Instructions: for treatment of severe hypoglycemia, second dose may be given if patient does not respond after 15 minutes . Per caregiver, pt has never has to use this medication. vitamin B complex [Vitamins B Complex] Capsule 1 cap PO QAM Qty: 30 0RF arformoterol [Brovana] 15 mcg/2 mL solution for nebulization 2 ml inhalation BID venlafaxine 150 mg capsule,extended release 24hr 150 mg PO QAM quetiapine 50 mg tablet extended release 24 hr 50 mg PO QAM nystatin 100,000 unit/gram cream 1 applic topical BID PRN (Reason: Other) duloxetine 30 mg capsule,delayed release(DR/EC) 30 mg PO HS Qty: 30 0RF aripiprazole 5 mg tablet 5 mg PO QAM divalproex 500 mg tablet,delayed release (DR/EC) 1,000 mg PO QAM famotidine [Acid Discharge Planner (famotidine)] 20 mg tablet 20 mg PO QAM budesonide 0.5 mg/2 mL suspension for nebulization 0.5 mg inhalation QPM hydrocortisone 10 mg tablet 10 - 20 mg PO UD Rx Instructions: 2 tabs (20mg) in AM, 1 tab (10mg) in PM duloxetine 60 mg capsule,delayed release(DR/EC) 60 mg PO QAM aspirin 81 mg capsule 81 mg PO QPM oxycodone 5 mg Tablet 15 mg PO Q4H PRN (Reason: pain) Qty: 84 0RF naloxone [Narcan] 4 mg/actuation spray,non-aerosol 1 spray intranasal ONCE PRN (Reason: opioid overdose) Qty: 2 2RF Held bumetanide 1 mg Tablet 1 mg PO QAM Qty: 30 0RF Hold Instructions: Resume on 06/03/25. lisinopril 40 mg tablet 40 mg PO QAM Hold Instructions: Resume on 06/03/25. Discontinued pantoprazole 40 mg tablet,delayed release (DR/EC) 40 mg PO BID Qty: 60 5RF oxybutynin chloride 5 mg tablet extended release 24hr 5 mg PO QAM Rx Instructions: TAKE 1 TABLET BY MOUTH DAILY formoterol fumarate [Perforomist] 20 mcg/2 mL Solution For Nebulization 20 mcg NEB BIDR Qty: 60 0RF tirzepatide 5 mg/0.5 mL pen injector 5 mg subcut WK Rx Instructions: tuesday PER PT "HOLDING DOSE ON 05/05/25 FOR PROCEDURE". Discharge Orders: Discharge Order (Routine); Ordered 05/27/25 Ordered By: Davy Benoit Admission Data Admit Date/Time: 05/25/25 15:04 Attending Provider: Davy Benoit Admit Provider: Davy Benoit Primary Care Provider: Larry Amaral Other Providers: Davy Benoit Hospital Stay Data Consultations 05/25/25 14:47 ED Decision to Admit Stat Diagnostic Imagining Performed 05/25/25 12:24 CT abd pelvis wo con Stat CT cervical spine wo con Stat CT chest diagnostic wo con Stat CT facial bones wo con Stat CT head/brain wo con Stat CT lumbar spine wo con Stat 05/26/25 18:10 CT Brain [CT head/brain wo con] Stat Pending Results Patient Have Any Pending Studies at Discharge: Yes Discharge Instructions Given to Patient (Per Discharging Provider) See your PCP Dr. Larry Amaral within 5-7 days of hospital discharge to discuss whether you should resume or not resume your home-scheduled bumex 1mg PO qam and your home-scheduled lisinopril 40mg PO qam. Until then, do NOT resume your home-scheduled bumex 1mg PO qam or your home-scheduled lisinopril 40mg PO qam on hospital discharge date 05/27/2025. Total Time Total Time Spent Total Time Spent (In Minutes): 35 minutes. Of this time period, 19 minutes were spent in coordinating patient's discharge. Coding Level of Care Code 73852 INP/OBS DISCH >30 MIN
[2025-05-27] MEDS: SODIUM PHOSPHATE 40 MMOL in SODIUM CHLORIDE 0.9% 1,000 ML IV ONE (17:46)
[2025-05-28 09:29] LABS: Magnesium 1.5 mg/dl (1.7-2.4)
[2025-05-28 10:21] LABS: Anion Gap 12.0 (3-11); Blood Urea Nitrogen 3.0 mg/dl (6-23); Calcium 8.9 mg/dl (8.6-10.3); Carbon Dioxide 26.0 mmol/L (21-32); Chloride 111.0 mmol/L (98-107); Creatinine Clr Calc Pharmacy 111.4 ml/min; Glucose 93.0 mg/dl (70-99(Fasting)); Potassium 3.3 mmol/L (3.5-5.1); Sodium 149.0 mmol/L (136-145)
[2025-05-28] MEDS: MAGNESIUM SULFATE / D5W 1 GM/100 ML BAG IV SCH (10:57)
[2025-05-28] MEDS: POTASSIUM CHLORIDE CRTAB 20 MEQ TABCR PO STA (14:26)
[2025-05-28 15:58] VITALS: BP 169/104; PULSE 112; RESP 18; TEMP 98.1; O2SAT 100
[2025-05-28 16:15] LABS: Magnesium 1.9 mg/dl (1.7-2.4)
--- NOTE | 2025-05-28 16:51 | Discharge Summary ---
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 No myoclonus or tics or tremors. Genito-urinary: No urethral discharge. No puentes catheter. Discharge Plan Discharge Items Patient Disposition: Home - Self-Care Reason For Visit: ACUTE KIDNEY INJURY Discharge Diagnosis: 1. Acute kidney injury with admission creatinine 2.79 mg/dL, GFR 25.79 mL/min (05/25/2025, 12:23pm), probably due to home-scheduled bumex 1mg PO qam and lisinopril 40mg PO qam. RESOLVED with discharge creatinine 0.92 mg/dL, GFR 97.6 mL/min (05/28/2025, 8:42am), OFF home-scheduled bumex 1mg PO qam and OFF lisinopril 40mg PO qam. 2. Acute hypovolemic hyponatremia with admission Na 135 mmol/L (05/25/2025, 12:23pm), probably due to home-scheduled bumex 1mg PO qam and bumex-mediated natri-uresis. RESOLVED with discharge Na 149 mmol/L (05/28/2025, 8:42am), OFF home-scheduled bumex 1mg PO qam. 3. Acute hypocalcemia with admission Ca 8.3 mg/dL, Ca ionized 1.11 mg/dL (05/25/2025, 12:23pm), probably due to home-scheduled bumex 1mg PO qam and bumex-mediated calci-uresis. RESOLVED with discharge Ca 8.9 mg/dL (05/28/2025, 8:42am), OFF home-scheduled bumex 1mg PO qam. 4. Acute hypomagnesemia with admission Mg 1.2 mg/dL (05/25/2025, 12:23pm), probably due to home-scheduled bumex 1mg PO qam and bumex-mediated calci-uresis. RESOLVED with discharge Mg 1.9 mg/dL (05/28/2025, 3:07pm), OFF home-scheduled bumex 1mg PO qam. 5. Acute hyperphosphatemia with admission PO4 5.5 mg/dL (05/25/2025, 12:23pm), probably due to acute kidney injury. RESOLVED with discharge PO4 3.3 mg/dL (05/28/2025, 3:07pm). 6. Acute toxic metabolic encephalopathy due to (a) acute kidney injury and (b) chronic opiate dependence (cf., oxycodone 15mg PO q4 prn pain, #84 tablets, no refills, prescribed on discharge date 05/18/2025). RESOLVED given resolution of (a) acute kidney injury and holding OFF home-scheduled oxycodone 15mg PO q4 prn pain (which the patient actually takes on an ozsact-eop-eoxws basis at home) and holding OFF home-scheduled oxybutynin 5mg PO qam while patient remained in [facility] from 05/25/2025 to 05/28/2025 7. Acute hypotension with admission BP 88/76, MAP 80 (05/25/2025, 12:20pm), probably due to (a) acute dehydration from home-scheduled bumex 1mg PO qam and (b) chronic opiate dependence (cf., oxycodone 15mg PO q4 prn pain, #84 tablets, no refills, prescribed on discharge date 05/18/2025). RESOLVED with discharge BP 149/80 (05/28/2025, 2:48pm) given resolution of (a) acute dehydration from home-scheduled bumex 1mg PO qam and by holding OFF home-scheduled oxycodone 15mg PO q4 prn pain (which the patient actually takes on an qtpirm-bbn-znlvw basis at home) while patient remained in [facility] from 05/25/2025 to 05/28/2025.ally takes on an kbmlcj-dwa-grjyb basis at home) while patient remained in [facility]. Condition on Discharge: Fair Activity: Resume your previous activity Lifting: Gradually increase as tolerated Bathing: No limitations Sexual Activity: When tolerated Exercise/Sports: Gradually increase as tolerated Weightbearing: Full weightbearing Non-emergency contact: Primary Care Provider Call non-emergency contact if: you have any medication questions Follow-up/Referrals: Larry Amaral MD [Primary Care Provider] - 06/13/25 10:30 am (APPT. Ilene/ Laura ZHU PA-C) Diet: Heart Healthy Addtl Attending Provider Instructions: See your PCP Dr. Larry Amaral within 5-7 days of hospital discharge to discuss whether you should resume or not resume your home-scheduled bumex 1mg PO qam and your home-scheduled lisinopril 40mg PO qam. Until then, do NOT resume your home-scheduled bumex 1mg PO qam or your home-scheduled lisinopril 40mg PO qam on hospital discharge date 05/27/2025. Pending Studies at Discharge: Yes Studies:: Repeat Na testing within 5-7 days of hospital discharge. Stand-Alone Forms: [facility], Smoking Cessation Medications and DC Order Prescriptions: New potassium phosphate, monobasic 500 mg tablet,soluble 1,000 mg PO BID Qty: 2 0RF Continued clopidogrel [Plavix] 75 mg tablet 75 mg PO QPM lithium carbonate 300 mg tablet 300 mg PO AMHS fluticasone propionate [Flonase Allergy Relief] 50 mcg/actuation spray,suspension 1 spray intranasal HS PRN (Reason: allergy symptoms) Qty: 16 0RF Rx Instructions: administer into each nostril (DME) insulin syringe-needle U-100 [BD Insulin Syringe Ultra-Fine] 1 mL 30 gauge x 1/2" syringe See Rx Instructions .Route Qty: 300 1RF Rx Instructions: use tid (DME) OneTouch Verio test strips Strip See Rx Instructions .MEDSUPPLY Qty: 150 5RF Rx Instructions: check blood sugars 4 times a day (DME) blood-glucose meter [OneTouch Verio Reflect Meter] Misc See Rx Instructions miscellaneous .MEDSUPPLY Qty: 1 0RF Rx Instructions: As directed (DME) lancets [OneTouch Delica Plus Lancet] 33 gauge misc See Rx Instructions .MEDSUPPLY Qty: 150 5RF Rx Instructions: As directed check blood sugars 4 times a day Botox 200 unit recon soln See Rx Instructions IM .COMPLEX Qty: 1 3RF Rx Instructions: 155 UNITS IM IN THE FACE AND NECK MUSCLES EVERY 12 WEEKS PER MIGRAINE PROTOCOL rosuvastatin 20 mg tablet 20 mg PO QAM Qty: 90 2RF (DME) pen needle, diabetic [BD Vy 2nd Gen Pen Needle] 32 gauge x 5/32" needle See Rx Instructions miscellaneous .MEDSUPPLY Qty: 100 3RF Rx Instructions: inject with a new pen needle daily lorazepam 0.5 mg tablet 0.5 mg PO DAILY PRN (Reason: Seizure Activity) levetiracetam 1,000 mg tablet 1,000 mg PO Q12H Qty: 60 6RF Norditropin FlexPro 5 mg/1.5 mL (3.3 mg/mL) pen injector 0.3 mg SQ QPM Qty: 2 5RF metoprolol succinate 25 mg tablet extended release 24 hr 25 mg PO HS Qty: 90 3RF lacosamide 150 mg tablet 150 mg PO BID Qty: 60 5RF (DME) Oxygen Home Liters Per Minute See Rx Instructions .Route Rx Instructions: 4 L o2 via NC As directed, metformin 1,000 mg tablet 1,000 mg PO BID Qty: 180 3RF Hold Instructions: Per Dr Voss to hold as of 11/23/22 testosterone 20.25 mg/1.25 gram (1.62 %) gel in metered-dose pump 2 pump TOP PM Qty: 75 5RF Rx Instructions: apply 1 pump amount over max area of EACH upper arm and shoulder PDMP Queried ok to fill 03/17/2023 DS cholecalciferol (vitamin D3) 50 mcg (2,000 unit) capsule 50 mcg PO QPM Qty: 90 1RF levothyroxine [Synthroid] 150 mcg tablet 150 mcg PO DAILYBB Qty: 30 5RF (DME) FreeStyle Rosalie 2 Sensor Kit See Rx Instructions .Route Qty: 6 3RF Rx Instructions: Change every 14 days desmopressin 0.2 mg tablet 0.4 mg PO BID Qty: 120 5RF (DME) [facility] See Rx Instructions .Route Qty: 1 0RF Rx Instructions: Check blood glucose before each meal mirtazapine [Remeron] 30 mg tablet 30 mg PO HS albuterol sulfate [Ventolin HFA] 90 mcg/actuation HFA aerosol inhaler 2 inh inhalation Q6H PRN (Reason: shortness of breath or wheezing) Qty: 6.7 2RF venlafaxine 75 mg capsule,extended release 24hr 75 mg PO QAM Rx Instructions: Take with 150mg cap prazosin 5 mg capsule 5 mg PO HS ramelteon 8 mg tablet 8 mg PO HS (DME) nebulizers [Compact Compressor Nebulizer] [facility] See Rx Instructions .Route Qty: 1 0RF Rx Instructions: One compact compressor nebulizer. Use as directed. Please include tubing, mouth piece and cup. ipratropium-albuterol 0.5 mg-3 mg(2.5 mg base)/3 mL solution for nebulization 3 ml inhalation QID PRN (Reason: wheezing) Qty: 90 0RF trazodone 100 mg tablet 100 mg PO HS ondansetron 8 mg tablet,disintegrating 8 mg PO Q8H PRN (Reason: nausea and vomiting) Qty: 30 0RF phenazopyridine [Pyridium] 200 mg tablet 200 mg PO TID Qty: 9 2RF Rx Instructions: Can take three times daily for up to three days; then must give the body a two day break ferrous sulfate 325 mg (65 mg iron) tablet 325 mg PO Q OTHER DAY insulin glargine [Lantus Solostar U-100 Insulin] 100 unit/mL (3 mL) insulin pen 12 unit SUBCUT HS Hold Instructions: Has been on hold for a few weeks per pt Patient Comments: PER PT HE IS TAKING 12 UNITS -CONFIRMED ON 07/19/24 Nurtec ODT 75 mg tablet,disintegrating 75 mg PO DAILY PRN (Reason: Migraine Headache) Qty: 16 6RF magnesium oxide 400 mg (241.3 mg magnesium) tablet 400 mg PO DAILY potassium chloride 10 mEq tablet extended release 10 meq PO QPM propranolol 120 mg capsule,extended release 24hr 120 mg PO HS Spiriva Respimat 2.5 mcg/actuation mist 2 puff inhalation DAILY Qty: 4 4RF sodium chloride 7 % solution for nebulization 1 inh inhalation BID Qty: 240 3RF acetylcysteine 200 mg/mL (20 %) solution 2 ml inhalation BID PRN (Reason: Chest congestion) Qty: 100 6RF dutasteride 0.5 mg capsule 0.5 mg PO QAM Rx Instructions: TAKE 1 CAPSULE BY MOUTH DAILY IN THE MORNING Baqsimi 3 mg/actuation spray,non-aerosol 3 mg intranasal ONCE PRN (Reason: Severe Hypoglycemia) Rx Instructions: for treatment of severe hypoglycemia, second dose may be given if patient does not respond after 15 minutes . Per caregiver, pt has never has to use this medication. vitamin B complex [Vitamins B Complex] Capsule 1 cap PO QAM Qty: 30 0RF arformoterol [Brovana] 15 mcg/2 mL solution for nebulization 2 ml inhalation BID venlafaxine 150 mg capsule,extended release 24hr 150 mg PO QAM quetiapine 50 mg tablet extended release 24 hr 50 mg PO QAM nystatin 100,000 unit/gram cream 1 applic topical BID PRN (Reason: Other) duloxetine 30 mg capsule,delayed release(DR/EC) 30 mg PO HS Qty: 30 0RF aripiprazole 5 mg tablet 5 mg PO QAM divalproex 500 mg tablet,delayed release (DR/EC) 1,000 mg PO QAM famotidine [Acid Furnace Checker (famotidine)] 20 mg tablet 20 mg PO QAM budesonide 0.5 mg/2 mL suspension for nebulization 0.5 mg inhalation QPM hydrocortisone 10 mg tablet 10 - 20 mg PO UD Rx Instructions: 2 tabs (20mg) in AM, 1 tab (10mg) in PM duloxetine 60 mg capsule,delayed release(DR/EC) 60 mg PO QAM aspirin 81 mg capsule 81 mg PO QPM oxycodone 5 mg Tablet 15 mg PO Q4H PRN (Reason: pain) Qty: 84 0RF naloxone [Narcan] 4 mg/actuation spray,non-aerosol 1 spray intranasal ONCE PRN (Reason: opioid overdose) Qty: 2 2RF Held bumetanide 1 mg Tablet 1 mg PO QAM Qty: 30 0RF Hold Instructions: Resume on 06/03/25. lisinopril 40 mg tablet 40 mg PO QAM Hold Instructions: Resume on 06/03/25. Discontinued pantoprazole 40 mg tablet,delayed release (DR/EC) 40 mg PO BID Qty: 60 5RF oxybutynin chloride 5 mg tablet extended release 24hr 5 mg PO QAM Rx Instructions: TAKE 1 TABLET BY MOUTH DAILY formoterol fumarate [Perforomist] 20 mcg/2 mL Solution For Nebulization 20 mcg NEB BIDR Qty: 60 0RF tirzepatide 5 mg/0.5 mL pen injector 5 mg subcut WK Rx Instructions: tuesday PER PT "HOLDING DOSE ON 05/05/25 FOR PROCEDURE". Discharge Orders: Discharge Order (Routine); Ordered 05/28/25 Ordered By: Davy Benoit Admission Data Admit Date/Time: 05/25/25 15:04 Attending Provider: Davy Benoit Admit Provider: Davy Benoit Primary Care Provider: Larry Amaral Other Providers: Davy Benoit Other Interventions: Discharge Summary Assessment (RN) Last Done: 05/28/25 14:48 Hospital Stay Data Consultations 05/25/25 14:47 ED Decision to Admit Stat Diagnostic Imagining Performed 05/25/25 12:24 CT abd pelvis wo con Stat CT cervical spine wo con Stat CT chest diagnostic wo con Stat CT facial bones wo con Stat CT head/brain wo con Stat CT lumbar spine wo con Stat 05/26/25 18:10 CT Brain [CT head/brain wo con] Stat Pending Results Patient Have Any Pending Studies at Discharge: Yes Discharge Instructions Given to Patient (Per Discharging Provider) See your PCP Dr. Larry Amaral within 5-7 days of hospital discharge to discuss whether you should resume or not resume your home-scheduled bumex 1mg PO qam and your home-scheduled lisinopril 40mg PO qam. Until then, do NOT resume your home-scheduled bumex 1mg PO qam or your home-scheduled lisinopril 40mg PO qam on hospital discharge date 05/27/2025. Total Time Total Time Spent Total Time Spent (In Minutes): 35 minutes. Of this time period, 19 minutes were spent in coordinating patient's discharge. Coding Level of Care Code 04860 INP/OBS DISCH >30 MIN
[2025-05-30 11:26] LABS: Hydrocodone Urine NEGATIVE ng/mL (<50); Hydromor Urine NEGATIVE ng/mL (<50); Noroxycodone Urine 2230 ng/mL (<50); Oxymorph Urine 1910 ng/mL (<50)
== END 2025-05-28 16:46 | disposition home or self-care (01) | DRG 682 ==
LOC: ED 12:10 → 2N 15:04

== ENCOUNTER 2025-05-29 09:27 | Inpatient (IN) ==
--- NOTE | 2025-05-29 09:33 | Emergency Department Note ---
Impression & Plan Sepsis, Hypomagnesemia, Generalized weakness, Frequent falls, Abrasion of knee, Hypokalemia ED Provider Note NAME: LINSEY VIRAMONTES Jr AGE: 54 SEX: M : 1970 ARRIVES VIA: Ambulance INFORMANT: Patient, EMS ED PROVIDER(S): Sonu Cobos DO CHIEF COMPLAINT: falls HPI: This is a 54-year-old male with the PMHx of PNES, chronic pain syndrome, IDDM, BPH, COPD with chronic respiratory failure on LFNC, CAD, bipolar disorder, iatrogenic cazares-hypopituitarism, adrenal insufficiency, paroxysmal atrial fibrillation and obesity presenting to [facility] for further evaluation of fevers and multiple falls. Patient is accompanied by EMS who provide additional history. patient was recently discharged from [facility] after an admission for QUENTIN and generalized weakness. Patient has not been doing well at home. He has been able to ambulate but has fallen multiple times overnight. Most recent fall led to a posterior head strike with unknown loss of consciousness. Given worsening falls and ambulatory status as well as fevers at home, EMS was called. Patient had a Tmax reported of 104 F at home. He currently reports back pain as well as knee pain on the left. Patient does report some neck pain. They deny fever or chills. No cough or congestion. Denies chest pain or palpitations. No shortness of breath. They deny abdominal pain, nausea and vomiting. No urinary complaints. No recent changes in bowel movements. Patient denies recent changes in medications or OTC supplements. Patient offers no other complaints, today. ADDITIONAL HISTORY OBTAINED: Per HPI Chronic Medical/Social Conditions Affecting Care: Per HPI PAST MEDICAL HISTORY: See Below PAST SURGICAL HISTORY: See Below FAMILY HISTORY: See Below SOCIAL HISTORY: See Below HOME MEDICATIONS: See Below ALLERGIES: See Below VITALS: See Below PHYSICAL EXAMINATION: GENERAL: Sitting up in bed, alert, well appearing, well nourished, no distress, non-toxic HEAD: right facial abrasions, no coronado sign EYE EXAM: normal conjunctiva. PERRL and EOM's grossly intact. OROPHARYNX: no exudate, no erythema, lips, buccal mucosa, and tongue normal and mucous membranes are dry NECK: supple, no nuchal rigidity, no adenopathy, non-tender LUNGS: Clear to auscultation. Normal chest wall mechanics HEART: no murmurs, tachycardic rate, regular rhythm ABDOMEN: abdomen soft, non-tender, normo-active bowel sounds, no masses, no rebound or guarding. ecchymoses over the left upper quadrant that appears old. BACK: Back is symmetrical on inspection and there is no deformity, midline L- spine tenderness, no CVA tenderness. 2+ patellar reflexes. 5 out of 5 strength. 2+ DP pulses. Brisk capillary refill. No significant edema SKIN: no rashes. Ecchymoses throughout the extremities that appear old. New abrasion over the left knee. UPPER EXTREMITIES: upper extremities are grossly normal. LOWER EXTREMITIES: No pitting edema. NEURO EXAM: Normal sensorium, cranial nerves II-XII grossly intact, normal speech, no gross weakness of arms, no gross weakness of legs. No drift. Finger to nose intact. Gross sensation intact. MEDICAL DECISION MAKING: Differential diagnoses includes but not limited to mechanical fall, syncope, electrolyte derangements, sepsis, bacteremia, complicated UTI, viral URI, ACS, dysrhythmia, fracture, dislocation, soft tissue injury, intra-abdominal trauma In summary, this is a 54 year old male who presented with falls, weakness and fevers. Differential as above. Nursing notes and pertinent past medical records reviewed. Vital signs reviewed and the patient is Febrile, tachycardic and borderline hypotensive. Vital signs are concerning for possible infectious etiology. Given that he meets SIRS criteria, the patient will have sepsis workup in the ED. Given his shock index, I am also concerned for bleeding in the setting of trauma. Patient will require whole-body CT scans. History and presentation revealed recent admission and I reviewed documentation. Physical examination revealed as above.. As a result of my initial evaluation, the patient was recently evaluated in the emergency department and admitted to the hospital. He was recently discharged yesterday morning. He has had multiple falls from standing position in the past day. Patient did report positive head strike with unknown loss of consciousness. Patient reports that he hit his posterior skull. Patient currently complaining of left knee pain with an abrasion. He also has low back pain. Patient has noticed fevers over the last few days. Patient arrives with hemodynamic instability including tachycardia and borderline hypotension as well as a fever. Plan for sepsis evaluation as well as traumatic injury workup including whole-body CT scans given his dual antiplatelet therapy. Diagnostics interpreted by me include EKG and cardiac monitoring as listed below: -Cardiac Monitoring: An order was placed for continuous cardiac monitoring. The monitor shows a rate of 130s with slightly irregular rhythm. -ECG: EKG independently interpreted me reveals sinus tachycardia that could be atrial fibrillation with RVR. No significant ST segment changes suggest STEMI. Intervals are otherwise within normal limits. Patient completed laboratory studies and imaging. Results independently interpreted by me are mild anemia that is actually improved from prior. No significant leukocytosis. procalcitonin is normal. Troponin is elevated in the setting of tachycardia. We will plan for repeat. Kidney function and electrolytes are stable. Lactate is normal with normal mentation doubting significant hypoperfusion at this time. The patient was managed with gentle IV fluid resuscitation and pain control. Tylenol for his fever as well as pain as well as IV fentanyl for further pain control. On reevaluation, the patient's fever continued to rise. Patient pending further CT scans. Patient was given a dose of Tylenol. Fever now 102 F. Plan for IV Toradol. Magnesium and potassium replenishment ordered. I reevaluated the patient. Patient was hypotensive briefly. Still borderline blood pressure. Continues to have sinus tachycardia versus atrial fibrillation with RVR. Patient did take his home medications. WBCT were independently interpreted by me as negative for traumatic injuries. Troponin on repeat was stable. His vital signs in the setting of a fever are concerning for sepsis. Ongoing workup. Have not been able to identify a source of infection at this time. Remains on broad-spectrum antibiotics. Will continue with IV fluid resuscitation and antipyretics. Do not believe it is necessary to rate control the patient at this time given this is probably reactive to his infectious source. infectious workup did not identify a source. Patient does have an elevated CRP but negative procalcitonin and ESR. In the setting of back pain, could have possible spinal pathology but feel this is less likely. He is neurovascularly intact exam for his lower extremities. Does have midline tenderness. Patient may require further imaging as an inpatient. Patient became afebrile, less tachycardic and blood pressure improved following IV fluid resuscitation and antipyretics. Patient was discussed with the hospitalist team for admission. He was subsequently admitted to the [facility] hospitalist group for further care. Consults/Care Managements Discussions: Per MDM ER treatment provided: See above Procedures:none Critical Care: None Past Med/Surg History Problem List (Updated 05/29/25 @ 17:01 by Sonu Cobos DO) Hypokalemia (Acute) Abrasion of knee (Acute) Frequent falls (Acute) Generalized weakness (Acute) Hypomagnesemia (Acute) Sepsis (Acute) Fever of unknown origin Contusion of face (Acute) Hypomagnesemia (Acute) Opiate dependence Hypotension Toxic metabolic encephalopathy Hyperphosphatemia Hypomagnesemia Hypocalcemia Acute hyponatremia Dizziness (Acute) QUENTIN (acute kidney injury) (Acute) CHI (closed head injury) (Acute) Therapeutic opioid-induced constipation (OIC) Counseling regarding advanced directives and goals of care Generalized pain Bipolar 1 disorder Diabetes Psychogenic nonepileptic seizure Asthma COPD (chronic obstructive pulmonary disease) Intractable back pain (Acute) Numbness of right foot Advanced care planning/counseling discussion Palliative care by specialist Back pain at L4-L5 level Bilateral nephrolithiasis (Chronic) Elevated lactic acid level Compartment syndrome of lower extremity Ambulatory dysfunction (Acute) Arthralgia Venous stasis ulcers (Acute) Chronic venous insufficiency (Chronic) Presbyopia of both eyes Epiretinal membrane (ERM) of left eye Ocular hypertension Secondary cataract of left eye with vision obscured Combined form of senile cataract of right eye Abnormal chest CT Demyelinating disease Esophageal dysphagia 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 Current use of proton pump inhibitor Chronic migraine without aura or status migrainosus Anemia (Acute) Ulcerative colitis Mixed hyperlipidemia Lumbar stenosis with neurogenic claudication Arachnoid cyst of posterior cranial fossa Pseudoseizures Idiopathic polyneuropathy Essential tremor Mitral regurgitation Depression Anxiety (Chronic) Medical History Acute flank pain Kidney stones currently causing severe pain History of pneumonia (03/2025) states has been admitted for total of 36 days ytd at [facility] for pneumonia, last was approxl 1 month ago Ocular hypertension Ulcerative colitis Mixed hyperlipidemia Lumbar stenosis with neurogenic claudication Idiopathic polyneuropathy Essential tremor Demyelinating disease Compartment syndrome of lower extremity (02/2025) per hx Chronic venous insufficiency Back pain at L4-L5 level Arthralgia Depression with anxiety Hx of fall (11/2024) History of dysphagia Hematuria On home O2 4 L nc History of recent hospitalization states has been in hospital 36 days this year so far with pneumonia- last was approx 1 month ago Sepsis Pyelonephritis Urinary tract obstruction due to kidney stone Lactic acidosis LPRD (laryngopharyngeal reflux disease) Severe obesity (BMI 35.0-35.9 with comorbidity) Uncontrolled type 2 diabetes mellitus with hyperglycemia Suspect low glycation index meaning his A1c is typically about 2 points lower than what his average glucose would suggest. Hypothyroidism Hypertension Non-occlusive coronary artery disease Acute dehydration hx Witnessed seizure-like activity Nonepileptic episode Chronic narcotic dependence COPD with exacerbation (03/2025) follows with dr. mccarthy (last seen while in hospital at [facility] with pneumonia ~) Anti-cyclic citrullinated peptide antibody positive Restrictive lung disease follows with dr. mccarthy, on O2 4L nc at all times Abnormal PFTs (pulmonary function tests) Bipolar disorder (10/11/22) Obstructive sleep apnea cpap 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 Follows with endocrinology- Secondary adrenal insufficiency Transient alteration of awareness Chronic adrenal insufficiency Leukocytosis Acute asthma exacerbation hx Acute on chronic hypoxic respiratory failure O2 4L nc Migraine Hematoma Growth hormone deficiency Diaphoresis hx Acute hypoxic respiratory failure hx Influenza A (12/2024) hx- Status epilepticus (09/13/24) Knee hemarthrosis, right (09/13/24) Acute on chronic anemia (09/13/24) Acute metabolic encephalopathy (09/13/24) hx Laceration of toe of right foot Closed fracture of right fibula with malunion Right fibular fracture hx Acute on chronic respiratory failure with hypoxia and hypercapnia Shortness of breath only if not wearing oxygen Chronic respiratory failure with hypoxia Obesity CKD (chronic kidney disease), stage III Peripheral edema Atrial fibrillation (02/15/24) no cardioversion- has loop recorder and watchmans device, follows with dr. kilgore (03/2025 while inpt.) Chronic low back pain Panhypopituitarism Lumbosacral radiculopathy Toxic encephalopathy Chest pain hx Acute dyspnea hx Acute CHF hx Hypoglycemia hx Syncope and collapse Reason for loop recorder No recent issues since bed bound from femur fracture in Sep 2022 per patient Internal hemorrhoids Recurrent seizures (05/01/25) goes sometimes months without seizures, then may may have 2 in one day- last seizure- 05/01/25- grand mal, lost control of bowel and bladder- informed neuro, dr. villa- told to stay on meds (last saw dr. villa on tu04/30/25) Pituitary diabetes insipidus Spondylolysis, lumbar region Right lumbar radiculopathy HTN (hypertension) Adrenal insufficiency Pituitary adenoma Hyperactive gag reflex BRCA gene positive tested positive in Aug 2023 [place] Family history of BRCA gene mutation PTSD (post-traumatic stress disorder) Epidural lipomatosis Chronic left sacroiliac pain Benzodiazepine overdose hx Presence of cardiac device Loop recorder > placed at [facility]- last checked fall 2023 Hx of fracture of foot Sep 2022- right > cast since removed > still gets painful Fracture of fibula, right, closed Cerebral concussion May 2023 during seizure > no further issues Orthostatic hypotension Sensorineural hearing loss of both ears Rectal bleeding on occasion History of COVID-19 10/2021 - fatigue; resolved. Mitral valve regurgitation follows with Dr. kilgore Vertigo Lower extremity edema Elevated LFTs Bilateral hand pain Pituitary neoplasm Dx'ed in 2001- s/p surgical resection and XRT Repeat surgery in 2017 secondary to tumor regrowth at [facility] Prostate mass benign Bladder mass benign Surgical History Presence of Watchman left atrial appendage closure device (02/2024) eric History of arthroplasty of left knee (2014) S/P TURP (status post transurethral resection of prostate) History of lumbar fusion (07/2022) [facility] [place] Jul 2022 History of cardiac cath (07/2021) 07/2021 - no stents- no mi - [facility]- follows with dr. kilgore S/P epidural steroid injection History of lithotripsy Status post right foot surgery replaced 5th metatarsal--hardware in place History of bladder surgery remove mass History of prostate surgery (2016) remove mass- not malignant History of colonoscopy History of esophagogastroduodenoscopy (EGD) History of tooth extraction History of wisdom tooth extraction History of brain surgery x2---2004 @ [facility] [place], 2018 @ [facility]--for brain tumors > caused epilepsy Family History Grandmother (Paternal) Family history of diabetes mellitus Aunt Family history of diabetes mellitus Uncle Family history of diabetes mellitus Father , at 85 years of age from dementia. Prostate cancer Heart disease Osteoarthritis Mother , at 84 years of age from acute [place]. Cardiac disorder Grandmother (Maternal) Myocardial infarction Other Asthma Cancer Hypertension No family history of adverse response to anesthesia No family history of bleeding disorder Stroke Denies family history of Ovarian cancer Breast cancer Colorectal cancer Social History Smoking Status: Never smoker Tobacco Type: Smokeless Tobacco (Dip or Chew) Second Hand Exposure: No; Do You Dip or Chew Tobacco: Yes; Hx Alcohol Use: No Hx Substance Use: No Preferred Language: Turkmen Communication Ability: Effective Communication Ability Comment: Unable to obtain due to patient condition. Visual Impairment: Limited Hearing Ability: Normal Dobby Loom Chain Pegger Required: No Beliefs That Will Affect Care: None marital status: Single Current Living Situation: Spouse Current Living Situation Comment: and daughter in [place] current occupational status: disabled How many Children do You have: 3 How many Children do You have Comment: able to assist with care if needed Feels Safe at Home: Yes Childhood Exposure to Second-Hand Smoke: Yes (parents smoked) Diet: regular Diet Comment: going to be starting low carb/low calorie diet. caffeine: No (1/2 20 oz bottle of mountain dew. ) during the past year weight has: increased > 10 lbs Physical Activity Frequency: Daily Physical Activity Frequency Comment: walking, 1.5 miles daily. Seatbelt Use: always Do you think of yourself as: straight/heterosexual Gender Identity: Male Assistive Devices: Cane and CPAP Allergies Allergies Allergy/AdvReac Type Severity Reaction Status Date / Time clindamycin Allergy Intermediate SWELLING Verified 05/20/25 11:34 Iodinated Contrast Media Allergy Intermediate face/eye Verified 05/20/25 11:34 swelling Quinolones Allergy Intermediate HIVES Verified 05/20/25 11:34 tomato AdvReac Unknown swelling Verified 05/20/25 11:34 Home Meds Home Medications Medication Instructions Recorded Confirmed lithium carbonate 300 mg tablet 300 mg PO AMHS 06/04/22 05/29/25 mirtazapine 30 mg tablet (Remeron) 30 mg PO HS 06/23/22 05/29/25 dutasteride 0.5 mg capsule 0.5 mg PO QAM 04/06/24 05/29/25 glucagon 3 mg/actuation nasal 3 mg intranasal ONCE PRN Severe 04/06/24 05/29/25 spray (Baqsimi) Hypoglycemia aripiprazole 5 mg tablet 5 mg PO QAM 05/29/24 05/29/25 insulin glargine 100 unit/mL (3 12 unit subcut HS 08/29/24 07/09/25 mL) subcutaneous pen (Lantus Solostar U-100 Insulin) trazodone 100 mg tablet 100 mg PO HS 10/03/24 05/29/25 lorazepam 0.5 mg tablet 0.5 mg PO DAILY PRN Seizure 11/23/24 05/29/25 Activity ferrous sulfate 325 mg (65 mg 325 mg PO Q OTHER DAY 11/27/24 05/29/25 iron) tablet clopidogrel 75 mg tablet (Plavix) 75 mg PO QPM 12/03/24 05/29/25 arformoterol 15 mcg/2 mL solution 2 ml inhalation BID 01/16/25 05/29/25 for nebulization (Brovana) Oxygen Home 01/30/25 05/02/25 magnesium oxide 400 mg (241.3 mg 400 mg PO DAILY 03/01/25 05/29/25 magnesium) tablet nystatin 100,000 unit/gram topical 1 applic topical BID PRN Other 03/19/25 05/29/25 cream quetiapine 50 mg tablet,extended 50 mg PO QA 03/19/25 05/29/25 release 24 hr venlafaxine 150 mg 150 mg PO [facility] 03/19/25 05/29/25 capsule,extended release 24 hr propranolol 120 mg capsule,24 120 mg PO HS 03/26/25 05/29/25 hr,extended release prazosin 5 mg capsule 5 mg PO HS 04/05/25 05/29/25 ramelteon 8 mg tablet 8 mg PO HS 04/05/25 05/29/25 venlafaxine 75 mg capsule,extended 75 mg PO QA 04/05/25 05/29/25 release 24 hr aspirin 81 mg capsule 81 mg PO QPM 05/03/25 05/29/25 budesonide 0.5 mg/2 mL suspension 0.5 mg inhalation QPM 05/03/25 05/29/25 for nebulization divalproex 500 mg tablet,delayed 1,000 mg PO QAM 05/03/25 05/29/25 release duloxetine 60 mg capsule,delayed 60 mg PO QAM 05/03/25 05/29/25 release hydrocortisone 10 mg tablet 10 - 20 mg PO UD 05/03/25 05/29/25 lisinopril 40 mg tablet 40 mg PO QAM 05/03/25 05/29/25 somatropin 5 mg/1.5 mL (3.3 mg/mL) 0 mg subcut QPM 05/29/25 05/29/25 subcutaneous pen injector (Norditropin FlexPro) Previous Rx's Medication Instructions Recorded fluticasone propionate 50 1 spray intranasal HS PRN allergy 03/16/23 mcg/actuation nasal symptoms #16 grams spray,suspension (Flonase Allergy Relief) FreeStyle Rosalie 2 [place] (flash #1 ea 05/13/23 glucose scanning reader) blood sugar diagnostic (OneTouch #150 ea 11/22/23 Verio test strips) blood-glucose meter (OneTouch #1 ea 11/22/23 Verio Reflect Meter) insulin syringe-needle U-100 1 mL #300 ea 11/22/23 30 gauge x 1/2" (BD Insulin Syringe Ultra-Fine) lancets 33 gauge (OneTouch Delica #150 ea 11/22/23 Plus Lancet) albuterol sulfate 90 mcg/actuation 2 inh inhalation Q6H PRN shortness 02/24/24 aerosol inhaler (Ventolin HFA) of breath or wheezing #6.7 grams ipratropium 0.5 mg-albuterol 3 mg 3 ml inhalation QID PRN wheezing 07/31/24 (2.5 mg base)/3 mL nebulization #90 mL soln nebulizers (Compact Compressor #1 ea 07/31/24 Nebulizer) Botox 200 unit injection See Rx Instructions IM .COMPLEX #1 09/18/24 (onabotulinumtoxinA) ea rosuvastatin 20 mg tablet 20 mg PO QAM #90 tabs 09/19/24 pen needle, diabetic 32 gauge x #100 ea 10/23/24 5/32" (BD Vy 2nd Gen Pen Needle) bumetanide 1 mg tablet 1 mg PO QAM #30 tabs 10/26/24 vitamin B complex (Vitamins B 1 cap PO QAM #30 caps 10/26/24 Complex capsule) levetiracetam 1,000 mg tablet 1,000 mg PO Q12H #60 tabs 11/26/24 metoprolol succinate 25 mg 25 mg PO HS #90 tabs 11/30/24 tablet,extended release 24 hr lacosamide 150 mg tablet 150 mg PO BID #60 tabs 12/26/24 metformin 1,000 mg tablet 1,000 mg PO BID #180 tabs 02/26/25 rimegepant 75 mg disintegrating 75 mg PO DAILY PRN Migraine 02/28/25 tablet (Nurtec ODT) Headache #16 tabs testosterone 2 pump topical PM #75 grams 03/18/25 acetylcysteine 200 mg/mL (20 %) 2 ml inhalation BID PRN Chest 03/26/25 solution congestion #100 mL cholecalciferol (vitamin D3) 50 50 mcg PO QPM #90 caps 03/26/25 mcg (2,000 unit) capsule sodium chloride 7 % for 1 inh inhalation BID #240 mL 03/26/25 nebulization tiotropium bromide 2.5 2 puff inhalation DAILY #4 grams 03/26/25 mcg/actuation mist for inhalation (Spiriva Respimat) duloxetine 30 mg capsule,delayed 30 mg PO HS #30 caps 04/12/25 release ondansetron 8 mg disintegrating 8 mg PO Q8H PRN nausea and 04/29/25 tablet vomiting #30 tabs phenazopyridine 200 mg tablet 200 mg PO TID #9 tabs 04/29/25 (Pyridium) FreeStyle Rosalie 2 Sensor (flash #6 ea 05/06/25 glucose sensor) levothyroxine 150 mcg tablet 150 mcg PO DAILYBB #30 tabs 05/06/25 (Synthroid) desmopressin 0.2 mg tablet 0.4 mg (2 x 0.2 mg) PO BID #120 05/16/25 tabs naloxone 4 mg/actuation nasal 1 spray intranasal ONCE PRN opioid 05/18/25 spray (Narcan) overdose #2 ea oxycodone 5 mg tablet 15 mg (3 x 5 mg) PO Q4H PRN pain 05/18/25 #84 tabs potassium phosphate, monobasic 500 1,000 mg (2 x 500 mg) PO BID #2 05/27/25 mg soluble tablet tabs Results & Data (ED) Vital Signs Vital Signs - 24 hr 05/29/25 09:42 05/29/25 09:42 05/29/25 09:42 Temperature 38.7 C H 38.7 C H Temperature Source Oral Oral Pulse Rate 136 H Pulse Rate [Apical] 136 H Pulse Rate from SpO2 Sensor Respiratory Rate 30 H 30 H Respiratory Effort / Characteristics Spontaneous Labored Short of Breath Spontaneous Short of Breath Respiratory Depth Shallow Shallow Respiratory Pattern Rapid/Shallow Rapid/Shallow Blood Pressure 91/64 L Blood Pressure [Right Arm] 91/64 L Blood Pressure Mean 73 Blood Pressure Mean [Right Arm] 73 Blood Pressure Position Lying Blood Pressure Position [Right Arm] Lying Pulse Oximetry 99 99 99 Oxygen Delivery Method Nasal Cannula Nasal Cannula Nasal Cannula Oxygen Flow Rate 4 4 4 Sepsis Recent Fever Within 48 Hours Yes Sepsis New/Unexplained Change in Mental Status No Sepsis Action Taken by Nursing Physician Notified 05/29/25 09:46 05/29/25 10:02 05/29/25 10:15 Temperature Temperature Source Pulse Rate 136 H 137 H Pulse Rate [Apical] Pulse Rate from SpO2 Sensor Respiratory Rate 30 H Respiratory Effort / Characteristics Respiratory Depth Respiratory Pattern Blood Pressure Blood Pressure [Right Arm] Blood Pressure Mean Blood Pressure Mean [Right Arm] Blood Pressure Position Blood Pressure Position [Right Arm] Pulse Oximetry 99 Oxygen Delivery Method Nasal Cannula Nasal Cannula Oxygen Flow Rate 4 4 Sepsis Recent Fever Within 48 Hours Sepsis New/Unexplained Change in Mental Status Sepsis Action Taken by Nursing 05/29/25 10:30 05/29/25 10:40 05/29/25 10:41 Temperature 38.9 C H Temperature Source Oral Pulse Rate Pulse Rate [Apical] 128 H 130 H Pulse Rate from SpO2 Sensor Respiratory Rate 28 H 30 H Respiratory Effort / Characteristics Spontaneous Short of Breath Spontaneous Short of Breath Respiratory Depth Shallow Respiratory Pattern Rapid/Shallow Blood Pressure 98/65 L Blood Pressure [Right Arm] 86/56 L 98/65 L Blood Pressure Mean 72 Blood Pressure Mean [Right Arm] 66 76 Blood Pressure Position Blood Pressure Position [Right Arm] Lying Lying Pulse Oximetry 96 96 Oxygen Delivery Method Nasal Cannula Nasal Cannula Oxygen Flow Rate 4 4 Sepsis Recent Fever Within 48 Hours Sepsis New/Unexplained Change in Mental Status Sepsis Action Taken by Nursing 05/29/25 10:42 05/29/25 10:50 05/29/25 11:00 Temperature Temperature Source Pulse Rate 129 H 126 H Pulse Rate [Apical] 126 H Pulse Rate from SpO2 Sensor 130 H Respiratory Rate 27 H 30 H 30 H Respiratory Effort / Characteristics Non-Labored Spontaneous Respiratory Depth Normal Respiratory Pattern Regular Blood Pressure 102/54 L Blood Pressure [Right Arm] 83/51 L Blood Pressure Mean 71 Blood Pressure Mean [Right Arm] 61 Blood Pressure Position Blood Pressure Position [Right Arm] Pulse Oximetry 96 97 96 Oxygen Delivery Method Nasal Cannula Nasal Cannula Nasal Cannula Oxygen Flow Rate 4 4 4 Sepsis Recent Fever Within 48 Hours Sepsis New/Unexplained Change in Mental Status Sepsis Action Taken by Nursing 05/29/25 11:20 05/29/25 11:30 05/29/25 11:40 Temperature Temperature Source Pulse Rate 123 H 123 H 116 H Pulse Rate [Apical] Pulse Rate from SpO2 Sensor Respiratory Rate 28 H 28 H 28 H Respiratory Effort / Characteristics Respiratory Depth Respiratory Pattern Blood Pressure 109/69 102/72 95/70 L Blood Pressure [Right Arm] Blood Pressure Mean 85 79 82 Blood Pressure Mean [Right Arm] Blood Pressure Position Blood Pressure Position [Right Arm] Pulse Oximetry 97 97 98 Oxygen Delivery Method Nasal Cannula Nasal Cannula Nasal Cannula Oxygen Flow Rate 4 4 4 Sepsis Recent Fever Within 48 Hours Sepsis New/Unexplained Change in Mental Status Sepsis Action Taken by Nursing 05/29/25 11:42 05/29/25 12:00 05/29/25 12:25 Temperature 37.5 C Temperature Source Oral Pulse Rate 116 H Pulse Rate [Apical] 114 H Pulse Rate from SpO2 Sensor 115 H Respiratory Rate 27 H 20 Respiratory Effort / Characteristics Non-Labored Spontaneous Respiratory Depth Normal Respiratory Pattern Regular Blood Pressure Blood Pressure [Right Arm] 131/63 Blood Pressure Mean Blood Pressure Mean [Right Arm] 85 Blood Pressure Position Blood Pressure Position [Right Arm] Pulse Oximetry 98 100 Oxygen Delivery Method Nasal Cannula Oxygen Flow Rate 4 Sepsis Recent Fever Within 48 Hours Sepsis New/Unexplained Change in Mental Status Sepsis Action Taken by Nursing 05/29/25 13:00 05/29/25 13:00 05/29/25 13:10 Temperature Temperature Source Pulse Rate 106 H Pulse Rate [Apical] 108 H Pulse Rate from SpO2 Sensor 106 H Respiratory Rate 22 21 Respiratory Effort / Characteristics Non-Labored Spontaneous Respiratory Depth Normal Respiratory Pattern Regular Blood Pressure 141/77 H 141/78 H Blood Pressure [Right Arm] 141/77 H Blood Pressure Mean 98 97 Blood Pressure Mean [Right Arm] 98 Blood Pressure Position Blood Pressure Position [Right Arm] Pulse Oximetry 97 98 Oxygen Delivery Method Nasal Cannula Oxygen Flow Rate 4 Sepsis Recent Fever Within 48 Hours Sepsis New/Unexplained Change in Mental Status Sepsis Action Taken by Nursing 05/29/25 13:20 05/29/25 13:30 05/29/25 13:40 Temperature Temperature Source Pulse Rate 111 H Pulse Rate [Apical] Pulse Rate from SpO2 Sensor 112 H Respiratory Rate 25 H Respiratory Effort / Characteristics Respiratory Depth Respiratory Pattern Blood Pressure 161/77 H 150/80 H 103/82 Blood Pressure [Right Arm] Blood Pressure Mean 108 103 88 Blood Pressure Mean [Right Arm] Blood Pressure Position Blood Pressure Position [Right Arm] Pulse Oximetry 99 Oxygen Delivery Method Oxygen Flow Rate Sepsis Recent Fever Within 48 Hours Sepsis New/Unexplained Change in Mental Status Sepsis Action Taken by Nursing 05/29/25 13:48 05/29/25 13:51 05/29/25 14:00 Temperature 36.8 C Temperature Source Oral Pulse Rate 109 H Pulse Rate [Apical] 110 H Pulse Rate from SpO2 Sensor 111 H Respiratory Rate 23 20 Respiratory Effort / Characteristics Non-Labored Spontaneous Respiratory Depth Respiratory Pattern Regular Blood Pressure 122/73 Blood Pressure [Right Arm] 147/80 H Blood Pressure Mean 91 Blood Pressure Mean [Right Arm] 102 Blood Pressure Position Blood Pressure Position [Right Arm] Pulse Oximetry 98 100 Oxygen Delivery Method Nasal Cannula Room Air Nasal Cannula Oxygen Flow Rate 4 4 Sepsis Recent Fever Within 48 Hours Sepsis New/Unexplained Change in Mental Status Sepsis Action Taken by Nursing 05/29/25 14:01 05/29/25 14:10 Temperature Temperature Source Pulse Rate 112 H Pulse Rate [Apical] Pulse Rate from SpO2 Sensor Respiratory Rate Respiratory Effort / Characteristics Respiratory Depth Respiratory Pattern Blood Pressure 125/85 Blood Pressure [Right Arm] Blood Pressure Mean 97 Blood Pressure Mean [Right Arm] Blood Pressure Position Blood Pressure Position [Right Arm] Pulse Oximetry Oxygen Delivery Method Oxygen Flow Rate Sepsis Recent Fever Within 48 Hours Sepsis New/Unexplained Change in Mental Status Sepsis Action Taken by Nursing Laboratory Data 05/29/25 09:50 05/29/25 09:50 Lab Results 05/29/25 05/29/25 05/29/25 Range/Units 09:50 09:58 10:01 WBC 7.55 (4.8-10.8) K/ul RBC 3.22 L (4.70-6.10) M/uL Hgb 9.4 L (14.0-18.0) g/dl POC Hgb 9.5 L (14.0-18.0) g/dl Hct 28.1 L (42.0-52.0) % POC Hct 28 L (42-52) % MCV 87.3 (80.0-100.0) fL MCH 29.2 (25.0-34.0) pg MCHC 33.5 (32.0-36.0) g/dL RDW Std Deviation 46.9 H (36.4-46.3) fL RDW Coeff of Yanira 14.9 H (11.5-14.5) % Plt Count 159 (130-400) K/uL MPV 9.2 L (9.4-12.4) fL Immature Gran % (Auto) 0.4 % Neut % (Auto) 50.0 % Lymph % (Auto) 36.0 % [place] % (Auto) 12.6 % Eos % (Auto) 0.5 % Baso % (Auto) 0.5 % Neut # (Auto) 3.77 (1.40-6.50) K/uL Lymph # (Auto) 2.72 (1.20-3.40) K/uL [place] # (Auto) 0.95 H (0.11-0.59) K/uL Eos # (Auto) 0.04 (0.00-0.50) K/uL Baso # (Auto) 0.04 (0.00-0.20) K/uL Immature Gran # (Auto) 0.03 (0.01-0.20) K/uL Absolute Nucleated RBC 0.05 (0.00-0.12) K/uL Nucleated RBC % (auto) 0.7 % ESR 8 (0-20) mm/hr PT 11.6 (9.0-12.0) Seconds INR 1.1 (0.9-1.1) APTT 26 (21-31) Seconds PTT Ratio 1.0 POC Sodium 140 (135-144) mmol/L Sodium 139 D (136-145) mmol/L POC Potassium 3.3 (3.3-5.0) mmol/L Potassium 3.3 L (3.5-5.1) mmol/L POC Chloride 103 (101-112) mmol/L Chloride 105 (98-107) mmol/L Carbon Dioxide 24 (21-32) mmol/L POC Total CO2 22 L (24-31) mmol/L Anion Gap 10 (3-11) POC Anion Gap 20.0 (16-25) mmol/L POC BUN < 3 L (7-18) mg/dl BUN 2 L (6-23) mg/dl Creatinine 1.40 D (0.6-1.4) mg/dl POC Creatinine 1.6 H (0.6-1.3) mg/dl Est Cr Clr Drug Dosing 74.5 ml/min eGFR 58.99 BUN/Creatinine Ratio 1.4 L (10-20) Glucose 102 H (70-99(Fasting)) mg/dl POC Glucose (other) 101 H (70-99) mg/dl Lactate 1.8 (0.4-2.0) mmol/L Calcium 8.8 (8.6-10.3) mg/dl POC Ioniz Calcium Jeny 1.13 (1.12-1.32) mmol/l Magnesium 1.1 L (1.7-2.4) mg/dl Total Bilirubin 0.4 (0.2-1.0) mg/dl AST 22 (13-39) U/L ALT 22 (7-52) U/L Alkaline Phosphatase 63 (34-104) U/L Total Creatine Kinase 101 (30-223) U/L Troponin I High Sens 31.9 H (0-20) pg/ml C-Reactive Protein 2.16 H (0-0.5) mg/dl Total Protein 6.0 (6.0-8.3) gm/dl Albumin 3.8 (3.4-5.0) gm/dl Globulin 2.2 L (2.5-4.0) gm/dl Albumin/Globulin Ratio 1.7 (0.9-2) Lipase 60 (11-82) U/L Procalcitonin 0.10 (0-0.5) ng/ml Ethyl Alcohol mg/dL (<10.0) mg/dl Adenovirus (PCR) Not Detected (NotDetected) B. pertussis DNA (PCR) Not Detected (NotDetected) B.parapertussis DNA PCR Not Detected (NotDetected) C. pneumoniae DNA (PCR) Not Detected (NotDetected) Coronavirus OC43 (PCR) Not Detected (NotDetected) Coronavirus HKU1 (PCR) Not Detected (NotDetected) Coronavirus 229E (PCR) Not Detected (NotDetected) SARS-CoV-2 (PCR) Not Detected (NotDetected) Coronavirus NL63 (PCR) Not Detected (NotDetected) Human Metapneumovir PCR Not Detected (NotDetected) Influenza Type A (PCR) Not Detected (NotDetected) Influenza Type B (PCR) Not Detected (NotDetected) M. pneumoniae (PCR) Not Detected (NotDetected) Parainfluenza 1 (PCR) Not Detected (NotDetected) Parainfluenza 2 (PCR) Not Detected (NotDetected) Parainfluenza 3 (PCR) Not Detected (NotDetected) Parainfluenza 4 (PCR) Not Detected (NotDetected) RSV (PCR) Not Detected (NotDetected) Entero/Rhino (PCR) Not Detected (NotDetected) Blood Type Antibody Screen 05/29/25 05/29/25 05/29/25 Range/Units 10:25 11:26 13:14 WBC (4.8-10.8) K/ul RBC (4.70-6.10) M/uL Hgb (14.0-18.0) g/dl POC Hgb (14.0-18.0) g/dl Hct (42.0-52.0) % POC Hct (42-52) % MCV (80.0-100.0) fL MCH (25.0-34.0) pg MCHC (32.0-36.0) g/dL RDW Std Deviation (36.4-46.3) fL RDW Coeff of Yanira (11.5-14.5) % Plt Count (130-400) K/uL MPV (9.4-12.4) fL Immature Gran % (Auto) % Neut % (Auto) % Lymph % (Auto) % [place] % (Auto) % Eos % (Auto) % Baso % (Auto) % Neut # (Auto) (1.40-6.50) K/uL Lymph # (Auto) (1.20-3.40) K/uL [place] # (Auto) (0.11-0.59) K/uL Eos # (Auto) (0.00-0.50) K/uL Baso # (Auto) (0.00-0.20) K/uL Immature Gran # (Auto) (0.01-0.20) K/uL Absolute Nucleated RBC (0.00-0.12) K/uL Nucleated RBC % (auto) % ESR (0-20) mm/hr PT (9.0-12.0) Seconds INR (0.9-1.1) APTT (21-31) Seconds PTT Ratio POC Sodium (135-144) mmol/L Sodium (136-145) mmol/L POC Potassium (3.3-5.0) mmol/L Potassium (3.5-5.1) mmol/L POC Chloride (101-112) mmol/L Chloride (98-107) mmol/L Carbon Dioxide (21-32) mmol/L POC Total CO2 (24-31) mmol/L Anion Gap (3-11) POC Anion Gap (16-25) mmol/L POC BUN (7-18) mg/dl BUN (6-23) mg/dl Creatinine (0.6-1.4) mg/dl POC Creatinine (0.6-1.3) mg/dl Est Cr Clr Drug Dosing ml/min eGFR BUN/Creatinine Ratio (10-20) Glucose (70-99(Fasting)) mg/dl POC Glucose (other) (70-99) mg/dl Lactate (0.4-2.0) mmol/L Calcium (8.6-10.3) mg/dl POC Ioniz Calcium Jeny (1.12-1.32) mmol/l Magnesium (1.7-2.4) mg/dl Total Bilirubin (0.2-1.0) mg/dl AST (13-39) U/L ALT (7-52) U/L Alkaline Phosphatase (34-104) U/L Total Creatine Kinase (30-223) U/L Troponin I High Sens 30.5 H 24.1 H (0-20) pg/ml C-Reactive Protein (0-0.5) mg/dl Total Protein (6.0-8.3) gm/dl Albumin (3.4-5.0) gm/dl Globulin (2.5-4.0) gm/dl Albumin/Globulin Ratio (0.9-2) Lipase (11-82) U/L Procalcitonin (0-0.5) ng/ml Ethyl Alcohol mg/dL < 10.0 (<10.0) mg/dl Adenovirus (PCR) (NotDetected) B. pertussis DNA (PCR) (NotDetected) B.parapertussis DNA PCR (NotDetected) C. pneumoniae DNA (PCR) (NotDetected) Coronavirus OC43 (PCR) (NotDetected) Coronavirus HKU1 (PCR) (NotDetected) Coronavirus 229E (PCR) (NotDetected) SARS-CoV-2 (PCR) (NotDetected) Coronavirus NL63 (PCR) (NotDetected) Human Metapneumovir PCR (NotDetected) Influenza Type A (PCR) (NotDetected) Influenza Type B (PCR) (NotDetected) M. pneumoniae (PCR) (NotDetected) Parainfluenza 1 (PCR) (NotDetected) Parainfluenza 2 (PCR) (NotDetected) Parainfluenza 3 (PCR) (NotDetected) Parainfluenza 4 (PCR) (NotDetected) RSV (PCR) (NotDetected) Entero/Rhino (PCR) (NotDetected) Blood Type A Negative Antibody Screen NEGATIVE Administered Medications Discontinued Medications Acetaminophen (Acetaminophen 500 Mg Tab) 1,000 mg PO NOW STA Stop: 05/29/25 09:47 Last Admin: 05/29/25 09:56 Dose: 1,000 mg Documented By: DIONISIO Fentanyl Citrate (Fentanyl Citrate Pf 100 Mcg/2 Ml Vial) 50 mcg IV NOW STA Stop: 05/29/25 09:42 Last Admin: 05/29/25 09:56 Dose: 50 mcg Documented By: DIONISIO Hydrocortisone Sodium Succinate (Hydrocortisone Sod Succinate 100 Mg/2 Ml Vial) 100 mg IV NOW STA Stop: 05/29/25 14:15 Last Admin: 05/29/25 15:09 Dose: 100 mg Documented By: BRADLY Parenteral Electrolytes (Plasma-Lyte A Ph 7.4) 1,000 mls @ 999 mls/hr IV .Q1H1M ONE Stop: 05/29/25 10:41 Last Infusion: 05/29/25 12:49 Dose: Infused Documented By: Admin: 05/29/25 09:56 Dose: 999 mls/hr Documented By: DIONISIO Cefepime HCl (Maxipime 2000mg) 2,000 mg in 20 mls @ 5 mls/min IV NOW STA; Protocol Stop: 05/29/25 09:50 Last Admin: 05/29/25 10:30 Dose: 5 mls/min Documented By: TNK Parenteral Electrolytes (Plasma-Lyte A Ph 7.4) 1,000 mls @ 999 mls/hr IV .Q1H1M ONE Stop: 05/29/25 11:59 Last Infusion: 05/29/25 12:49 Dose: Infused Documented By: Admin: 05/29/25 11:19 Dose: 999 mls/hr Documented By: BRADLY Magnesium Sulfate/Dextrose (Magnesium Sulfate / D5w) 1 gm in 100 mls @ 100 mls/hr IV Q1H OBDULIO Stop: 05/29/25 14:46 Last Infusion: 05/29/25 15:05 Dose: Infused Documented By: Admin: 05/29/25 14:05 Dose: 100 mls/hr Documented By: Infusion: 05/29/25 13:52 Dose: Infused Documented By: Admin: 05/29/25 12:52 Dose: 100 mls/hr Documented By: BRADLY Ketorolac Tromethamine (Ketorolac Tromethamine 15 Mg/Ml Vial) 15 mg IV NOW STA Stop: 05/29/25 11:00 Last Admin: 05/29/25 11:20 Dose: 15 mg Documented By: BRADLY Potassium Chloride (Potassium Chloride Crtab 20 Meq Tabcr) 40 meq PO NOW STA Stop: 05/29/25 11:08 Last Admin: 05/29/25 11:20 Dose: 40 meq Documented By: BRADLY Imaging Data Radiologist's Impression: Chest X-Ray 05/29/25 09:41 XR chest 1V portable HISTORY: 54 years-old Male Trauma acute chest trauma COMPARISON: Chest CT same day TECHNIQUE: AP view of the chest FINDINGS: Cardiac silhouette is mildly enlarged. Electronic device projects over the left heart border. Mild subsegmental bibasilar atelectasis. No pneumothorax, pleural effusion or airspace consolidation. Left atrial appendage exclusion device. Degenerative changes of the shoulders and spine.. Chronic left clavicular fracture. No acute displaced rib fracture identified by radiography. IMPRESSION: Cardiomegaly without acute process. ACT 112: Negative or not required by law. The above report was generated using voice recognition software. It may contain grammatical, syntax or spelling errors. Electronically signed by: Bean Tolentino M.D. 05/29/2025 10:43 AM Abdomen/Pelvis CT 05/29/25 09:42 CT SCAN OF THE ABDOMEN AND PELVIS WITHOUT IV CONTRAST CLINICAL HISTORY: Trauma. Fall. Diffuse cazares. COMPARISON STUDY: Abdominal CT dated 05/25/2025. TECHNIQUE: CT scan of the abdomen and pelvis is performed from the lung bases to the proximal femora. Images are reviewed in the axial, sagittal, and coronal planes. IV contrast was not administered for this examination. Note that the examination was performed in significantly suboptimal fashion without IV contrast. A dose lowering technique was utilized adhering to the principles of ALARA. FINDINGS: Lung bases: The heart is normal in size noting trace pericardial effusion. There is coronary artery atherosclerosis. A left atrial appendage occlusion device is in place. There is a tiny calcified granuloma right lung base. The lung bases are otherwise clear noting dependent atelectasis. There is a small hiatal hernia. Liver: The unenhanced liver is enlarged, measuring 19.8 cm in length. Attenuation is diffusely diminished indicating mild steatosis. There is no intrahepatic biliary ductal dilatation. Gallbladder: Unremarkable. Spleen: Normal in size and attenuation. Pancreas: Unremarkable. Adrenal glands: Unremarkable. Kidneys: The unenhanced kidneys are normal in size and without hydronephrosis. There are punctate nonobstructing calculi in the right lower pole. No left renal calculi are identified and there is no ureteral stone. There is no evidence of contour deforming renal mass lesion. Abdominal vasculature: The abdominal aorta is normal in course and caliber noting moderate atherosclerotic calcification. Bowel: The small bowel and colon are normal in course and caliber. The appendix is well-visualized and normal. Peritoneum: There is no intraperitoneal free air or abdominal ascites. There is a small fat-containing umbilical hernia. Lymphadenopathy: None. Pelvic viscera: The bladder, prostate gland is diminutive and heterogeneous. The bladder wall appears thickened/trabeculated indicating chronic outlet obstruction. Skeletal structures: The lumbosacral spine, bony pelvis, and proximal femora appear intact. Mild lumbosacral spondylosis is observed. There is postsurgical change from laminectomy and posterior fusion at L5-S1. No lytic or blastic lesions are seen. 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 IMPRESSION: 1. There is no evidence of solid organ injury in the abdomen or pelvis on this unenhanced examination. 2. The liver is mildly enlarged and steatotic. 3. Right-sided nephrolithiasis. 4. Coronary artery atherosclerosis. 5. 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 6. Additional findings as above. ACT 112: Negative or not required by law. Electronically signed by: Galindo Mejia M.D. 05/29/2025 11:[address] 05/29/25 09:42 CT cervical spine wo con CLINICAL HISTORY: 54 years-old Male with Trauma. Acute neck, with dizziness status post fall COMPARISON: Head CT of same day, CT cervical spine 05/25/2025 TECHNIQUE: Multiple axial CT images of the cervical spine were obtained without contrast. A dose lowering technique was utilized adhering to the principles of ALARA. FINDINGS: No acute fracture or subluxation. Moderate intervertebral disc space narrowing with anterior bridging osteophytes at C4-C5. Mild to moderate multilevel facet arthrosis. Multilevel neural foraminal narrowing, suboptimally assessed by CT technique. The cervical soft tissues appear unremarkable. At CT dictated separately. The visualized lung apices appear clear. IMPRESSION: No acute cervical spine fracture or subluxation. ACT 112: Negative or not required by law. The above report was generated using voice recognition software. It may contain grammatical, syntax or spelling errors. Electronically signed by: Bean Tolentino M.D. 05/29/2025 11:[address] 05/29/25 09:42 CT OF THE CHEST WITHOUT IV CONTRAST CLINICAL HISTORY: trauma COMPARISON STUDY: Chest CT May 25, 2025. TECHNIQUE: Axial images of the chest were obtained without IV contrast. Images were reviewed in the axial, sagittal, and coronal planes. IV contrast was not administered for this examination. Automated exposure control was utilized for the study. A dose lowering technique was utilized adhering to the principles of ALARA. FINDINGS: Thoracic aorta is suboptimally assessed on unenhanced exam but no mediastinal hematoma is present. Cardiomegaly is again noted. Left atrial appendage occluder device is in place. Prominent subcarinal lymph nodes are unchanged. These are likely benign. There is no pericardial effusion. No pneumothorax or pleural effusion is present. Ground glass opacities favor atelectasis. There is no consolidation to suggest pneumonia. No definite pulmonary contusion. No acute rib or thoracic spine fractures are identified. Abdomen and pelvis CT will be reported separately. IMPRESSION: No acute traumatic findings within the chest. ACT 112: Negative or not required by law. Electronically signed by: Rohit Adam/9/2025 10:[address] 05/29/25 09:42 CT SCAN OF THE BRAIN WITHOUT IV CONTRAST CLINICAL HISTORY: Fall. COMPARISON STUDY: Head CT May 26, 2025. TECHNIQUE: Unenhanced axial CT scan of the brain was performed from the vertex to the skull base. A dose lowering technique was utilized adhering to the principles of ALARA. CT DOSE: 3810.42 mGy.cm FINDINGS: Brain parenchyma: No acute intracranial hemorrhage, midline shift or mass effect is present. Paul-white matter differentiation is preserved. There are no extra- axial fluid collections. There are no findings to suggest acute dural sinus thrombosis or acute territorial infarct. Posterior fossa arachnoid cyst is incidentally noted. Ventricles, sulci, cisterns: There is no hydrocephalus. The basal cisterns are patent. Calvarium: There are no calvarial fractures. Sinuses and mastoids: The visualized paranasal sinuses are clear. The mastoid air cells are well pneumatized. Orbits: The bony orbits are grossly intact. IMPRESSION: 1. No acute intracranial findings. 2. No calvarial fractures. ACT 112: Negative or not required by law. Electronically signed by: Aditya Foley M.D. 05/29/2025 10:39 AM Knee X-Ray 05/29/25 10:17 XR knee LT 3V HISTORY: 54 years-old Male fall, pain, abrasion acute left knee pain status post fall COMPARISON: None TECHNIQUE: 3 views of the left knee FINDINGS: Mild tricompartmental osteoarthritis. 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 Mild anteromedial soft tissue swelling. No acute fracture, dislocation or large joint effusion. IMPRESSION: Soft tissue swelling without acute fracture. ACT 112: Negative or not required by law. The above report was generated using voice recognition software. It may contain grammatical, syntax or spelling errors. Electronically signed by: Bean Tolentino M.D. 05/29/2025 11:01 AM Discharge Plan Visit Data Chief Complaint: Weakness Stated Complaint: WEAKNESS, DIZZINESS, FALLS ED Provider: Sonu Cobos Discharge Problem: Sepsis, Hypomagnesemia, Generalized weakness, Frequent falls, Abrasion of knee, Hypokalemia Patient Disposition: Admitted As Inpatient Condition: Fair
[2025-05-29] MEDS: PLASMA-LYTE A 1,000 ML IV ONE ×2 (09:56→11:19)
[2025-05-29] MEDS: ACETAMINOPHEN 500 MG TAB PO STA (09:56)
[2025-05-29 10:23] LABS: Hematocrit (blood only) 28.1 % (42.0-52.0); Hemoglobin 9.4 g/dl (14.0-18.0); Immature Granulocytes # (auto) 0.03 K/uL (0.01-0.20); Immature Granulocytes % (auto) 0.4 %; Mean Corpuscular Hemoglobin 29.2 pg (25.0-34.0); Mean Corpuscular Volume 87.3 fL (80.0-100.0); Platelet Count 159 K/uL (130-400); RDW Standard Deviation 46.9 fL (36.4-46.3); Red Blood Count 3.22 M/uL (4.70-6.10); White Blood Count 7.55 K/ul (4.8-10.8)
[2025-05-29] MEDS: CEFEPIME 2000MG 2,000 MG/20 ML SYR IV STA (10:30)
--- NOTE | 2025-05-29 10:40 | CT Scan Report ---
CT SCAN OF THE BRAIN WITHOUT IV CONTRAST CLINICAL HISTORY: Fall. COMPARISON STUDY: Head CT May 26, 2025. TECHNIQUE: Unenhanced axial CT scan of the brain was performed from the vertex to the skull base. A dose lowering technique was utilized adhering to the principles of ALARA. CT DOSE: 3810.42 mGy.cm FINDINGS: Brain parenchyma: No acute intracranial hemorrhage, midline shift or mass effect is present. Paul-whi te matter differentiation is preserved. There are no extra-axial fluid collections. There are no find ings to suggest acute dural sinus thrombosis or acute territorial infarct. Posterior fossa arachnoid cyst is incidentally noted. Ventricles, sulci, cisterns: There is no hydrocephalus. The basal cisterns are patent. Calvarium: There are no calvarial fractures. Sinuses and mastoids: The visualized paranasal sinuses are clear. The mastoid air cells are well pneu matized. Orbits: The bony orbits are grossly intact. IMPRESSION: 1. No acute intracranial findings. 2. No calvarial fractures. ACT 112: Negative or not required by law. Electronically signed by: Aditya Foley M.D. 05/29/2025 10:39 AM
--- NOTE | 2025-05-29 10:44 | XRay Report ---
XR chest 1V portable HISTORY: 54 years-old Male Trauma acute chest trauma COMPARISON: Chest CT same day TECHNIQUE: AP view of the chest FINDINGS: Cardiac silhouette is mildly enlarged. Electronic device projects over the left heart border. Mild fischer bsegmental bibasilar atelectasis. No pneumothorax, pleural effusion or airspace consolidation. Left a trial appendage exclusion device. Degenerative changes of the shoulders and spine.. Chronic left clav icular fracture. No acute displaced rib fracture identified by radiography. IMPRESSION: Cardiomegaly without acute process. ACT 112: Negative or not required by law. The above report was generated using voice recognition software. It may contain grammatical, syntax o r spelling errors. Electronically signed by: Bena Tolentino M.D. 05/29/2025 10:43 AM
[2025-05-29 10:46] LABS: Alanine Aminotransferase 22.0 U/L (7-52); Albumin Globulin Ratio 1.7 (0.9-2); Alkaline Phosphatase 63.0 U/L (34-104); Anion Gap 10.0 (3-11); Bilirubin,Total 0.4 mg/dl (0.2-1.0); Blood Urea Nitrogen 2.0 mg/dl (6-23); Calcium 8.8 mg/dl (8.6-10.3); Carbon Dioxide 24.0 mmol/L (21-32); Chloride 105.0 mmol/L (98-107); Creatine Kinase 101.0 U/L (30-223); Creatinine Clr Calc Pharmacy 74.5 ml/min; Globulin 2.2 gm/dl (2.5-4.0); Glucose 102.0 mg/dl (70-99(Fasting)); Lipase 60.0 U/L (11-82); Potassium 3.3 mmol/L (3.5-5.1); Sodium 139.0 mmol/L (136-145); Total Protein 6.0 gm/dl (6.0-8.3)
--- NOTE | 2025-05-29 10:55 | CT Scan Report ---
CT OF THE CHEST WITHOUT IV CONTRAST CLINICAL HISTORY: trauma COMPARISON STUDY: Chest CT May 25, 2025. TECHNIQUE: Axial images of the chest were obtained without IV contrast. Images were reviewed in the axial, sagittal, and coronal planes. IV contrast was not administered for this examination. Automat ed exposure control was utilized for the study. A dose lowering technique was utilized adhering to t he principles of ALARA. FINDINGS: Thoracic aorta is suboptimally assessed on unenhanced exam but no mediastinal hematoma is present. Cardiomegaly is again noted. Left atrial appendage occluder device is in place. Prominent fischer bcarinal lymph nodes are unchanged. These are likely benign. There is no pericardial effusion. No pne umothorax or pleural effusion is present. Ground glass opacities favor atelectasis. There is no conso lidation to suggest pneumonia. No definite pulmonary contusion. No acute rib or thoracic spine fractu res are identified. Abdomen and pelvis CT will be reported separately. IMPRESSION: No acute traumatic findings within the chest. ACT 112: Negative or not required by law. Electronically signed by: Aditya Foley M.D. 05/29/2025 10:54 AM
[2025-05-29 10:58] LABS: INR 1.1 (0.9-1.1); Partial Thromboplastin Time 26 Seconds (21-31); Prothrombin Time 11.6 Seconds (9.0-12.0)
--- NOTE | 2025-05-29 11:02 | XRay Report ---
XR knee LT 3V HISTORY: 54 years-old Male fall, pain, abrasion acute left knee pain status post fall COMPARISON: None TECHNIQUE: 3 views of the left knee FINDINGS: Mild tricompartmental osteoarthritis. 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 Mild anteromedial soft tissue swelling. No acute fracture, dislocation or large joint effusion. IMPRESSION: Soft tissue swelling without acute fracture. ACT 112: Negative or not required by law. The above report was generated using voice recognition software. It may contain grammatical, syntax o r spelling errors. Electronically signed by: Bean Tolentino M.D. 05/29/2025 11:01 AM
--- NOTE | 2025-05-29 11:09 | CT Scan Report ---
CT cervical spine wo con CLINICAL HISTORY: 54 years-old Male with Trauma. Acute neck, with dizziness status post fall COMPARISON: Head CT of same day, CT cervical spine 05/25/2025 TECHNIQUE: Multiple axial CT images of the cervical spine were obtained without contrast. A dose low ering technique was utilized adhering to the principles of ALARA. FINDINGS: No acute fracture or subluxation. Moderate intervertebral disc space narrowing with anterio r bridging osteophytes at C4-C5. Mild to moderate multilevel facet arthrosis. Multilevel neural leslie inal narrowing, suboptimally assessed by CT technique. The cervical soft tissues appear unremarkable. At CT dictated separately. The visualized lung apices appear clear. IMPRESSION: No acute cervical spine fracture or subluxation. ACT 112: Negative or not required by law. The above report was generated using voice recognition software. It may contain grammatical, syntax o r spelling errors. Electronically signed by: Bean Tolentino M.D. 05/29/2025 11:07 AM
[2025-05-29 11:13] LABS: Chlamydia pneumoniae PCR Not Detected (NotDetected); Coronavirus 229E PCR Not Detected (NotDetected); Coronavirus CoV-2 (COVID19)PCR Not Detected (NotDetected); Coronavirus HKU1 PCR Not Detected (NotDetected); Coronavirus NL63 PCR Not Detected (NotDetected); Coronavirus OC43PCR Not Detected (NotDetected); Human Metapneumovirus PCR Not Detected (NotDetected); Parainfluenza Virus 1 PCR Not Detected (NotDetected); Parainfluenza Virus 2 PCR Not Detected (NotDetected); Parainfluenza Virus 3 PCR Not Detected (NotDetected); Parainfluenza Virus 4 PCR Not Detected (NotDetected); Respiratory Syncytial VirusPCR Not Detected (NotDetected); Rhinovirus/Enterovirus PCR Not Detected (NotDetected)
--- NOTE | 2025-05-29 11:13 | CT Scan Report ---
CT SCAN OF THE ABDOMEN AND PELVIS WITHOUT IV CONTRAST CLINICAL HISTORY: Trauma. Fall. Diffuse cazares. COMPARISON STUDY: Abdominal CT dated 05/25/2025. TECHNIQUE: CT scan of the abdomen and pelvis is performed from the lung bases to the proximal femora. Images are reviewed in the axial, sagittal, and coronal planes. IV contrast was not administered for this examination. Note that the examination was performed in significantly suboptimal fashion withou t IV contrast. A dose lowering technique was utilized adhering to the principles of ALARA. FINDINGS: Lung bases: The heart is normal in size noting trace pericardial effusion. There is coronary artery a therosclerosis. A left atrial appendage occlusion device is in place. There is a tiny calcified granu jeana right lung base. The lung bases are otherwise clear noting dependent atelectasis. There is a sma ll hiatal hernia. Liver: The unenhanced liver is enlarged, measuring 19.8 cm in length. Attenuation is diffusely dimini shed indicating mild steatosis. There is no intrahepatic biliary ductal dilatation. Gallbladder: Unremarkable. Spleen: Normal in size and attenuation. Pancreas: Unremarkable. Adrenal glands: Unremarkable. Kidneys: The unenhanced kidneys are normal in size and without hydronephrosis. There are punctate non obstructing calculi in the right lower pole. No left renal calculi are identified and there is no ure teral stone. There is no evidence of contour deforming renal mass lesion. Abdominal vasculature: The abdominal aorta is normal in course and caliber noting moderate atheroscle rotic calcification. Bowel: The small bowel and colon are normal in course and caliber. The appendix is well-visualized a nd normal. Peritoneum: There is no intraperitoneal free air or abdominal ascites. There is a small fat-containin g umbilical hernia. Lymphadenopathy: None. Pelvic viscera: The bladder, prostate gland is diminutive and heterogeneous. The bladder wall appears thickened/trabeculated indicating chronic outlet obstruction. Skeletal structures: The lumbosacral spine, bony pelvis, and proximal femora appear intact. Mild lumb osacral spondylosis is observed. There is postsurgical change from laminectomy and posterior fusion a t L5-S1. No lytic or blastic lesions are seen. 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 IMPRESSION: 1. There is no evidence of solid organ injury in the abdomen or pelvis on this unenhanced examination . 2. The liver is mildly enlarged and steatotic. 3. Right-sided nephrolithiasis. 4. Coronary artery atherosclerosis. 5. 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 6. Additional findings as above. ACT 112: Negative or not required by law. Electronically signed by: Galindo Mejia M.D. 05/29/2025 11:12 AM
[2025-05-29] MEDS: POTASSIUM CHLORIDE CRTAB 20 MEQ TABCR PO STA (11:20)
[2025-05-29] MEDS: KETOROLAC TROMETHAMINE 15 MG/ML VIAL IV STA (11:20)
[2025-05-29 12:30] LABS: Magnesium 1.1 mg/dl (1.7-2.4)
[2025-05-29] MEDS: MAGNESIUM SULFATE / D5W 1 GM/100 ML BAG IV SCH (12:52)
--- NOTE | 2025-05-29 13:09 | History & Physical Report ---
Date of Service May 29, 2025 Assessment & Plan (1) Toxic metabolic encephalopathy: (2) Hypomagnesemia: (3) Fever of unknown origin: (4) Hypotension: (5) Generalized pain: (6) Bipolar 1 disorder: (7) Diabetes: (8) Hypokalemia: Plan #Fever of unknown origin - Admit to PCU - Diabetic diet (may eat when more awake/alert) - VS per unit protocol - Obtain VBG d/t somnolence - Welsh catheter ordered to be inserted - Pt panscanned w/o evidence of traumatic fx/infectious source - CRP mildly elevated at 2, ESR and PCT WNL - No leukocytosis or shift on CBC - Fever reported at home 104F and in ED 38.9C - Blood cultures x2 sets obtained/pending - Given dose of IV Cefepime in ED - UA w/ reflex culture ordered - await results, if obvious source continue broad spectrum coverage and await sensitivities to tailor abx choice accordingly - If UA negative, LP to be ordered and consider ID consult - S/P 2L of plasmalyte in ED, defer further IVF at present - Stress dose Solu-Cortef 100mg IV x1 now and 50mg q6 #Frequent falls - Fall precautions - PT/OT eval and tx - Panscanned w/o evidence of traumatic injuries #Encephalopathy - metabolic vs. toxic - ?Related to potential infection vs medication effect from fentanyl given in ED - No witnessed seizure activity - VBG as noted above - PCU with end-tidal CO2 - Pending UA, consider MRI + LP #Hypotension - S/P 2L of IVF as noted above - Hold Bumex and Lisinopril - Metoprolol can be given with parameters #Hypokalemia and hypomagnesemia - Mag Sulfate 1g IVx2 doses given in ED - Increase oral mag ox to 400mg BID - Replace potassium - Repeat CMP + mag in am #Chronic Back Pain - Continue oxycodone and cymbalta #Seizure disorder - Continue lamictal, depakote, vimpat #Bipolar D/O/PTSD/MDD - Continue lithium, Seroquel, Trazodone, Abilify and Effexor #Diabetes Mellitus T2 - Continue Lantus 6u BID - SSI w/ CF 65 and CR 22 - AC and HS BSG checks - Diabetic diet ordered #CAD/DLD - Continue aspirin, plavix, metoprolol and Crestor #COPD/Chronic respiratory failure - Continue supplemental O2 via NC to maintain pulse ox ~92% - Continue neb/inhalers VTE ppx will be covered with Lovenox 40mg sq daily. AM labs have been ordered. Therapy eval as above. Plan has been d/w Dr. Carney who will also see and evaluate this patient. Further orders will be implemented as clinically warranted. History of Present Illness Chief Complaint: Falls Primary Care Provider: Larry Amaral MD Waldo is a 54 yo M with a pmhx of obesity, chronic pain, IDDM, BPH, COPD with chronic respiratory failure, CAD, bipolar disorder, iatrogenic cazares- hypopituitarism, adrenal insufficiency, paroxysmal afib and generalized tonic- clonic seizure disorder who presented to the ER today due to frequent falls at home and reported fever. Patient is not able to provide any history due to somnolence. reports temp 104 at home last PM. Was up twice to the use the bathroom, reported once was for voiding, second was for BM. No urinary complaints, cough, congestion, chest pain, or abd pain. No n/v/d. She reports that he fell multiple times last evening. Just discharged from [facility] on 05/28 after a stay 05/25-05/28 after a stay for generalized weakness, QUENTIN, and electrolyte derangements. Work up today is notable for a mag of 1.1, potassium 3.3, and a fever of 38.9C Tmax. He was noted to have a soft BP of 83/51, claims that he has been taking his medications for adrenal insufficiency as prescribed and hasn't missed any doses. He is also mildly tachycardic. He is currently on 4L of nasal cannula O2 with a sat of 100%. He is s/p 2L of plasmalyte, a dose of acetaminophen, fentanyl d/t complaints of back pain, and also a dose of cefepime to cover possible sepsis. He has been referred to hospital medicine team for further care. Allergies Allergy/AdvReac Type Severity Reaction Status Date / Time clindamycin Allergy Intermediate SWELLING Verified 05/20/25 11:34 Iodinated Contrast Media Allergy Intermediate face/eye Verified 05/20/25 11:34 swelling Quinolones Allergy Intermediate HIVES Verified 05/20/25 11:34 tomato AdvReac Unknown swelling Verified 05/20/25 11:34 Home Medications Medication Instructions Recorded Confirmed Type lithium carbonate 300 mg tablet 300 mg PO AMHS 06/04/22 05/29/25 History mirtazapine 30 mg tablet (Remeron) 30 mg PO HS 06/23/22 05/29/25 History fluticasone propionate 50 1 spray intranasal HS PRN allergy 03/16/23 05/29/25 Rx mcg/actuation nasal symptoms #16 grams spray,suspension (Flonase Allergy Relief) FreeStyle Rosalie 2 [place] (flash #1 ea 05/13/23 05/02/25 Rx glucose scanning reader) blood sugar diagnostic (WindtronicsTouch #150 ea 11/22/23 05/02/25 Rx Verio test strips) blood-glucose meter (WindtronicsTouch #1 ea 11/22/23 05/02/25 Rx Verio Reflect Meter) insulin syringe-needle U-100 1 mL #300 ea 11/22/23 05/02/25 Rx 30 gauge x 1/2" (BD Insulin Syringe Ultra-Fine) lancets 33 gauge (WindtronicsTouch Delica #150 ea 11/22/23 05/02/25 Rx Plus Lancet) albuterol sulfate 90 mcg/actuation 2 inh inhalation Q6H PRN shortness 02/24/24 05/29/25 Rx aerosol inhaler (Ventolin HFA) of breath or wheezing #6.7 grams dutasteride 0.5 mg capsule 0.5 mg PO QAM 04/06/24 05/29/25 History glucagon 3 mg/actuation nasal 3 mg intranasal ONCE PRN Severe 04/06/24 05/29/25 History spray (Baqsimi) Hypoglycemia aripiprazole 5 mg tablet 5 mg PO QAM 05/29/24 05/29/25 History insulin glargine 100 unit/mL (3 12 unit subcut HS 07/19/24 05/29/25 History mL) subcutaneous pen (Lantus Solostar U-100 Insulin) ipratropium 0.5 mg-albuterol 3 mg 3 ml inhalation QID PRN wheezing 07/31/24 05/29/25 Rx (2.5 mg base)/3 mL nebulization #90 mL soln nebulizers (Compact Compressor #1 ea 07/31/24 05/02/25 Rx Nebulizer) Botox 200 unit injection See Rx Instructions IM .COMPLEX #1 09/18/24 05/29/25 Rx (onabotulinumtoxinA) ea rosuvastatin 20 mg tablet 20 mg PO QAM #90 tabs 09/19/24 05/29/25 Rx trazodone 100 mg tablet 100 mg PO HS 10/03/24 05/29/25 History pen needle, diabetic 32 gauge x #100 ea 10/23/24 05/02/25 Rx 5/32" (BD Vy 2nd Gen Pen Needle) bumetanide 1 mg tablet 1 mg PO QAM #30 tabs 10/26/24 05/29/25 Rx vitamin B complex (Vitamins B 1 cap PO QAM #30 caps 10/26/24 05/29/25 Rx Complex capsule) lorazepam 0.5 mg tablet 0.5 mg PO DAILY PRN Seizure 11/23/24 05/29/25 History Activity levetiracetam 1,000 mg tablet 1,000 mg PO Q12H #60 tabs 11/26/24 05/29/25 Rx ferrous sulfate 325 mg (65 mg 325 mg PO Q OTHER DAY 11/27/24 05/29/25 History iron) tablet metoprolol succinate 25 mg 25 mg PO HS #90 tabs 11/30/24 05/29/25 Rx tablet,extended release 24 hr clopidogrel 75 mg tablet (Plavix) 75 mg PO QPM 12/03/24 05/29/25 History lacosamide 150 mg tablet 150 mg PO BID #60 tabs 12/26/24 05/29/25 Rx arformoterol 15 mcg/2 mL solution 2 ml inhalation BID 01/16/25 05/29/25 History for nebulization (Brovana) Oxygen Home 01/30/25 05/02/25 History metformin 1,000 mg tablet 1,000 mg PO BID #180 tabs 02/26/25 05/29/25 Rx rimegepant 75 mg disintegrating 75 mg PO DAILY PRN Migraine 02/28/25 05/29/25 Rx tablet (Nurtec ODT) Headache #16 tabs magnesium oxide 400 mg (241.3 mg 400 mg PO DAILY 03/01/25 05/29/25 History magnesium) tablet testosterone 2 pump topical PM #75 grams 03/18/25 05/29/25 Rx nystatin 100,000 unit/gram topical 1 applic topical BID PRN Other 03/19/25 05/29/25 History cream quetiapine 50 mg tablet,extended 50 mg PO QAM 03/19/25 05/29/25 History release 24 hr venlafaxine 150 mg 150 mg PO QAM 03/19/25 05/29/25 History capsule,extended release 24 hr acetylcysteine 200 mg/mL (20 %) 2 ml inhalation BID PRN Chest 03/26/25 05/29/25 Rx solution congestion #100 mL cholecalciferol (vitamin D3) 50 50 mcg PO QPM #90 caps 03/26/25 05/29/25 Rx mcg (2,000 unit) capsule propranolol 120 mg capsule,24 120 mg PO HS 03/26/25 05/29/25 History hr,extended release sodium chloride 7 % for 1 inh inhalation BID #240 mL 03/26/25 05/29/25 Rx nebulization tiotropium bromide 2.5 2 puff inhalation DAILY #4 grams 03/26/25 05/29/25 Rx mcg/actuation mist for inhalation (Spiriva Respimat) prazosin 5 mg capsule 5 mg PO HS 04/05/25 05/29/25 History ramelteon 8 mg tablet 8 mg PO HS 04/05/25 05/29/25 History venlafaxine 75 mg capsule,extended 75 mg PO QAM 04/05/25 05/29/25 History release 24 hr duloxetine 30 mg capsule,delayed 30 mg PO HS #30 caps 04/12/25 05/29/25 Rx release ondansetron 8 mg disintegrating 8 mg PO Q8H PRN nausea and 04/29/25 05/29/25 Rx tablet vomiting #30 tabs phenazopyridine 200 mg tablet 200 mg PO TID #9 tabs 04/29/25 05/29/25 Rx (Pyridium) aspirin 81 mg capsule 81 mg PO QPM 05/03/25 05/29/25 History budesonide 0.5 mg/2 mL suspension 0.5 mg inhalation QPM 05/03/25 05/29/25 History for nebulization divalproex 500 mg tablet,delayed 1,000 mg PO QAM 05/03/25 05/29/25 History release duloxetine 60 mg capsule,delayed 60 mg PO QAM 05/03/25 05/29/25 History release hydrocortisone 10 mg tablet 10 - 20 mg PO UD 05/03/25 05/29/25 History lisinopril 40 mg tablet 40 mg PO QAM 05/03/25 05/29/25 History FreeStyle Rosalie 2 Sensor (flash #6 ea 05/06/25 Rx glucose sensor) levothyroxine 150 mcg tablet 150 mcg PO DAILYBB #30 tabs 05/06/25 05/29/25 Rx (Synthroid) desmopressin 0.2 mg tablet 0.4 mg (2 x 0.2 mg) PO BID #120 05/16/25 05/29/25 Rx tabs naloxone 4 mg/actuation nasal 1 spray intranasal ONCE PRN opioid 05/18/25 05/29/25 Rx spray (Narcan) overdose #2 ea oxycodone 5 mg tablet 15 mg (3 x 5 mg) PO Q4H PRN pain 05/18/25 05/29/25 Rx #84 tabs somatropin 5 mg/1.5 mL (3.3 mg/mL) 0 mg subcut QPM 05/29/25 05/29/25 History subcutaneous pen injector (Norditropin FlexPro) linezolid 600 mg tablet 600 mg PO BID #23 tabs 05/31/25 Rx Past Med/Surg History Problem List (Updated 06/02/25 @ 00:08 by Background Daana) Therapeutic opioid-induced constipation (OIC) Counseling regarding advanced directives and goals of care Bipolar 1 disorder Diabetes Psychogenic nonepileptic seizure Asthma COPD (chronic obstructive pulmonary disease) Intractable back pain (Acute) Numbness of right foot Advanced care planning/counseling discussion Palliative care by specialist Back pain at L4-L5 level Bilateral nephrolithiasis (Chronic) Elevated lactic acid level Compartment syndrome of lower extremity Ambulatory dysfunction (Acute) Arthralgia Venous stasis ulcers (Acute) Chronic venous insufficiency (Chronic) Presbyopia of both eyes Epiretinal membrane (ERM) of left eye Ocular hypertension Secondary cataract of left eye with vision obscured Combined form of senile cataract of right eye Abnormal chest CT Demyelinating disease Esophageal dysphagia 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 Current use of proton pump inhibitor Chronic migraine without aura or status migrainosus Anemia (Acute) Ulcerative colitis Mixed hyperlipidemia Lumbar stenosis with neurogenic claudication Arachnoid cyst of posterior cranial fossa Pseudoseizures Idiopathic polyneuropathy Essential tremor Mitral regurgitation Depression Anxiety (Chronic) Medical History Acute flank pain Kidney stones currently causing severe pain History of pneumonia (03/2025) states has been admitted for total of 36 days ytd at [facility] for pneumonia, last was approxl 1 month ago Ocular hypertension Ulcerative colitis Mixed hyperlipidemia Lumbar stenosis with neurogenic claudication Idiopathic polyneuropathy Essential tremor Demyelinating disease Compartment syndrome of lower extremity (02/2025) per hx Chronic venous insufficiency Back pain at L4-L5 level Arthralgia Depression with anxiety Hx of fall (11/2024) History of dysphagia Hematuria On home O2 4 L nc History of recent hospitalization states has been in hospital 36 days this year so far with pneumonia- last was approx 1 month ago Sepsis Pyelonephritis Urinary tract obstruction due to kidney stone Lactic acidosis LPRD (laryngopharyngeal reflux disease) Severe obesity (BMI 35.0-35.9 with comorbidity) Uncontrolled type 2 diabetes mellitus with hyperglycemia Suspect low glycation index meaning his A1c is typically about 2 points lower than what his average glucose would suggest. Hypothyroidism Hypertension Non-occlusive coronary artery disease Acute dehydration hx Witnessed seizure-like activity Nonepileptic episode Chronic narcotic dependence COPD with exacerbation (03/2025) follows with dr. mccarthy (last seen while in hospital at [facility] with pneumonia ~) Anti-cyclic citrullinated peptide antibody positive Restrictive lung disease follows with dr. mccarthy, on O2 4L nc at all times Abnormal PFTs (pulmonary function tests) Bipolar disorder (10/11/22) Obstructive sleep apnea cpap 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 Follows with endocrinology- Secondary adrenal insufficiency Transient alteration of awareness Chronic adrenal insufficiency Leukocytosis Acute asthma exacerbation hx Acute on chronic hypoxic respiratory failure O2 4L nc Migraine Hematoma Growth hormone deficiency Diaphoresis hx Acute hypoxic respiratory failure hx Influenza A (12/2024) hx- Status epilepticus (09/13/24) Knee hemarthrosis, right (09/13/24) Acute on chronic anemia (09/13/24) Acute metabolic encephalopathy (09/13/24) hx Laceration of toe of right foot Closed fracture of right fibula with malunion Right fibular fracture hx Acute on chronic respiratory failure with hypoxia and hypercapnia Shortness of breath only if not wearing oxygen Chronic respiratory failure with hypoxia Obesity CKD (chronic kidney disease), stage III Peripheral edema Atrial fibrillation (03/27/24) no cardioversion- has loop recorder and watchmans device, follows with dr. kilgore (03/2025 while inpt.) Chronic low back pain Panhypopituitarism Lumbosacral radiculopathy Toxic encephalopathy Chest pain hx Acute dyspnea hx Acute CHF hx Hypoglycemia hx Syncope and collapse Reason for loop recorder No recent issues since bed bound from femur fracture in Sep 2022 per patient Internal hemorrhoids Recurrent seizures (05/01/25) goes sometimes months without seizures, then may may have 2 in one day- last seizure- 05/01/25- grand mal, lost control of bowel and bladder- informed neuro, dr. villa- told to stay on meds (last saw dr. villa on tu04/30/25) Pituitary diabetes insipidus Spondylolysis, lumbar region Right lumbar radiculopathy HTN (hypertension) Adrenal insufficiency Pituitary adenoma Hyperactive gag reflex BRCA gene positive tested positive in Aug 2023 [place] Family history of BRCA gene mutation PTSD (post-traumatic stress disorder) Epidural lipomatosis Chronic left sacroiliac pain Benzodiazepine overdose hx Presence of cardiac device Loop recorder > placed at [facility]- last checked fall 2023 Hx of fracture of foot Sep 2022- right > cast since removed > still gets painful Fracture of fibula, right, closed Cerebral concussion May 2023 during seizure > no further issues Orthostatic hypotension Sensorineural hearing loss of both ears Rectal bleeding on occasion History of COVID-19 10/2021 - fatigue; resolved. Mitral valve regurgitation follows with Dr. kilgore Vertigo Lower extremity edema Elevated LFTs Bilateral hand pain Pituitary neoplasm Dx'ed in 2001- s/p surgical resection and XRT Repeat surgery in 2018 secondary to tumor regrowth at [facility] Prostate mass benign Bladder mass benign Surgical History Presence of Watchman left atrial appendage closure device (02/2024) eric History of arthroplasty of left knee (2014) S/P TURP (status post transurethral resection of prostate) History of lumbar fusion (07/2022) [facility] Jul 2022 History of cardiac cath (07/2021) 07/2021 - no stents- no mi - [facility]- follows with dr. kilgore S/P epidural steroid injection History of lithotripsy Status post right foot surgery replaced 5th metatarsal--hardware in place History of bladder surgery remove mass History of prostate surgery (2017) remove mass- not malignant History of colonoscopy History of esophagogastroduodenoscopy (EGD) History of tooth extraction History of wisdom tooth extraction History of brain surgery x2---2004 @ [facility], 2018 @ [facility]--for brain tumors > caused epilepsy Family History Grandmother (Paternal) Family history of diabetes mellitus Aunt Family history of diabetes mellitus Uncle Family history of diabetes mellitus Father , at 85 years of age from dementia. Prostate cancer Heart disease Osteoarthritis Mother , at 84 years of age from acute NE. Cardiac disorder Grandmother (Maternal) Myocardial infarction Other Asthma Cancer Hypertension No family history of adverse response to anesthesia No family history of bleeding disorder Stroke Denies family history of Ovarian cancer Breast cancer Colorectal cancer Social History Smoking Status: Never smoker Tobacco Type: Smokeless Tobacco (Dip or Chew) Second Hand Exposure: No; Do You Dip or Chew Tobacco: No; Hx Alcohol Use: No Hx Substance Use: No Preferred Language: Romansh Communication Ability: Effective Communication Ability Comment: Unable to obtain due to patient condition. Visual Impairment: Limited Hearing Ability: Normal Dispatcher Tugboat Required: No Beliefs That Will Affect Care: None marital status: Single Current Living Situation: Spouse Current Living Situation Comment: and daughter in [place] current occupational status: disabled How many Children do You have: 3 How many Children do You have Comment: able to assist with care if needed Feels Safe at Home: Yes Childhood Exposure to Second-Hand Smoke: Yes (parents smoked) Diet: regular Diet Comment: going to be starting low carb/low calorie diet. caffeine: No (1/2 20 oz bottle of mountain dew. ) during the past year weight has: increased > 10 lbs Physical Activity Frequency: Daily Physical Activity Frequency Comment: walking, 1.5 miles daily. Seatbelt Use: always Do you think of yourself as: straight/heterosexual Gender Identity: Male Assistive Devices: Cane, Oxygen - Continuous and Walker Review of Systems 2 Review of Systems: ROS not obtained d/t pt's current level of somnolence Physical Exam 2 Physical Exam: GENERAL: 54 yo obese middle aged WM. Somnolent but no distress. LUNGS: Clear to auscultation bilaterally. No W/R/R. CARDIOVASCULAR: Tachycardic ABDOMEN: Soft, non-tender and non-distended. Bowel sounds normoactive x 4 quad. EXTREMITIES: Trace b/l LE edema. Non-tender. Peripheral pulses +2/4. SKIN: Warm, dry, intact. No rashes or lesions. Results & Data Results & Data Vital Signs (Past 12 Hours) Vital Signs Temp Pulse Pulse Resp BP BP Pulse Ox 05/29/25 12:25 37.5 C 05/29/25 12:00 114 H 20 131/63 100 05/29/25 11:42 116 H 27 H 98 05/29/25 11:40 116 H 28 H 95/70 L 98 05/29/25 11:30 123 H 28 H 102/72 97 05/29/25 11:20 123 H 28 H 109/69 97 05/29/25 11:00 126 H 30 H 83/51 L 96 05/29/25 10:50 126 H 30 H 102/54 L 97 05/29/25 10:42 129 H 27 H 96 05/29/25 10:41 38.9 C H 130 H 30 H 98/65 L 96 05/29/25 10:40 98/65 L 05/29/25 10:30 128 H 28 H 86/56 L 96 05/29/25 10:15 137 H 30 H 05/29/25 10:02 99 05/29/25 09:46 136 H 05/29/25 09:42 99 05/29/25 09:42 38.7 C H 136 H 30 H 91/64 L 99 05/29/25 09:42 38.7 C H 136 H 30 H 91/64 L 99 O2 Del Method O2 Flow Rate 05/29/25 12:25 05/29/25 12:00 Nasal Cannula 4 05/29/25 11:42 05/29/25 11:40 Nasal Cannula 4 05/29/25 11:30 Nasal Cannula 4 05/29/25 11:20 Nasal Cannula 4 05/29/25 11:00 Nasal Cannula 4 05/29/25 10:50 Nasal Cannula 4 05/29/25 10:42 Nasal Cannula 4 05/29/25 10:41 Nasal Cannula 4 05/29/25 10:40 05/29/25 10:30 Nasal Cannula 4 05/29/25 10:15 Nasal Cannula 4 05/29/25 10:02 Nasal Cannula 4 05/29/25 09:46 05/29/25 09:42 Nasal Cannula 4 05/29/25 09:42 Nasal Cannula 4 05/29/25 09:42 Nasal Cannula 4 Laboratory Results 05/29/25 09:50 05/29/25 09:50 Diagnostic Findings Chest X-Ray 05/29/25 09:41 XR chest 1V portable HISTORY: 54 years-old Male Trauma acute chest trauma COMPARISON: Chest CT same day TECHNIQUE: AP view of the chest FINDINGS: Cardiac silhouette is mildly enlarged. Electronic device projects over the left heart border. Mild subsegmental bibasilar atelectasis. No pneumothorax, pleural effusion or airspace consolidation. Left atrial appendage exclusion device. Degenerative changes of the shoulders and spine.. Chronic left clavicular fracture. No acute displaced rib fracture identified by radiography. IMPRESSION: Cardiomegaly without acute process. ACT 112: Negative or not required by law. The above report was generated using voice recognition software. It may contain grammatical, syntax or spelling errors. Electronically signed by: Bean Tolentino M.D. 05/29/2025 10:43 AM Abdomen/Pelvis CT 05/29/25 09:42 CT SCAN OF THE ABDOMEN AND PELVIS WITHOUT IV CONTRAST CLINICAL HISTORY: Trauma. Fall. Diffuse cazares. COMPARISON STUDY: Abdominal CT dated 05/25/2025. TECHNIQUE: CT scan of the abdomen and pelvis is performed from the lung bases to the proximal femora. Images are reviewed in the axial, sagittal, and coronal planes. IV contrast was not administered for this examination. Note that the examination was performed in significantly suboptimal fashion without IV contrast. A dose lowering technique was utilized adhering to the principles of ALARA. FINDINGS: Lung bases: The heart is normal in size noting trace pericardial effusion. There is coronary artery atherosclerosis. A left atrial appendage occlusion device is in place. There is a tiny calcified granuloma right lung base. The lung bases are otherwise clear noting dependent atelectasis. There is a small hiatal hernia. Liver: The unenhanced liver is enlarged, measuring 19.8 cm in length. Attenuation is diffusely diminished indicating mild steatosis. There is no intrahepatic biliary ductal dilatation. Gallbladder: Unremarkable. Spleen: Normal in size and attenuation. Pancreas: Unremarkable. Adrenal glands: Unremarkable. Kidneys: The unenhanced kidneys are normal in size and without hydronephrosis. There are punctate nonobstructing calculi in the right lower pole. No left renal calculi are identified and there is no ureteral stone. There is no evidence of contour deforming renal mass lesion. Abdominal vasculature: The abdominal aorta is normal in course and caliber noting moderate atherosclerotic calcification. Bowel: The small bowel and colon are normal in course and caliber. The appendix is well-visualized and normal. Peritoneum: There is no intraperitoneal free air or abdominal ascites. There is a small fat-containing umbilical hernia. Lymphadenopathy: None. Pelvic viscera: The bladder, prostate gland is diminutive and heterogeneous. The bladder wall appears thickened/trabeculated indicating chronic outlet obstruction. Skeletal structures: The lumbosacral spine, bony pelvis, and proximal femora appear intact. Mild lumbosacral spondylosis is observed. There is postsurgical change from laminectomy and posterior fusion at L5-S1. No lytic or blastic lesions are seen. 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 IMPRESSION: 1. There is no evidence of solid organ injury in the abdomen or pelvis on this unenhanced examination. 2. The liver is mildly enlarged and steatotic. 3. Right-sided nephrolithiasis. 4. Coronary artery atherosclerosis. 5. 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 6. Additional findings as above. ACT 112: Negative or not required by law. Electronically signed by: Galindo Mejia M.D. 05/29/2025 11:[address] 05/29/25 09:42 CT cervical spine wo con CLINICAL HISTORY: 54 years-old Male with Trauma. Acute neck, with dizziness status post fall COMPARISON: Head CT of same day, CT cervical spine 05/25/2025 TECHNIQUE: Multiple axial CT images of the cervical spine were obtained without contrast. A dose lowering technique was utilized adhering to the principles of ALARA. FINDINGS: No acute fracture or subluxation. Moderate intervertebral disc space narrowing with anterior bridging osteophytes at C4-C5. Mild to moderate multilevel facet arthrosis. Multilevel neural foraminal narrowing, suboptimally assessed by CT technique. The cervical soft tissues appear unremarkable. At CT dictated separately. The visualized lung apices appear clear. IMPRESSION: No acute cervical spine fracture or subluxation. ACT 112: Negative or not required by law. The above report was generated using voice recognition software. It may contain grammatical, syntax or spelling errors. Electronically signed by: Bean Tolentino M.D. 05/29/2025 11:[address] 05/29/25 09:42 CT OF THE CHEST WITHOUT IV CONTRAST CLINICAL HISTORY: trauma COMPARISON STUDY: Chest CT May 25, 2025. TECHNIQUE: Axial images of the chest were obtained without IV contrast. Images were reviewed in the axial, sagittal, and coronal planes. IV contrast was not administered for this examination. Automated exposure control was utilized for the study. A dose lowering technique was utilized adhering to the principles of ALARA. FINDINGS: Thoracic aorta is suboptimally assessed on unenhanced exam but no mediastinal hematoma is present. Cardiomegaly is again noted. Left atrial appendage occluder device is in place. Prominent subcarinal lymph nodes are unchanged. These are likely benign. There is no pericardial effusion. No pneumothorax or pleural effusion is present. Ground glass opacities favor atelectasis. There is no consolidation to suggest pneumonia. No definite pulmonary contusion. No acute rib or thoracic spine fractures are identified. Abdomen and pelvis CT will be reported separately. IMPRESSION: No acute traumatic findings within the chest. ACT 112: Negative or not required by law. Electronically signed by: Aditya Foley M.D. 05/29/2025 10:[address] 05/29/25 09:42 CT SCAN OF THE BRAIN WITHOUT IV CONTRAST CLINICAL HISTORY: Fall. COMPARISON STUDY: Head CT May 26, 2025. TECHNIQUE: Unenhanced axial CT scan of the brain was performed from the vertex to the skull base. A dose lowering technique was utilized adhering to the principles of ALARA. CT DOSE: 3810.42 mGy.cm FINDINGS: Brain parenchyma: No acute intracranial hemorrhage, midline shift or mass effect is present. Paul-white matter differentiation is preserved. There are no extra- axial fluid collections. There are no findings to suggest acute dural sinus thrombosis or acute territorial infarct. Posterior fossa arachnoid cyst is incidentally noted. Ventricles, sulci, cisterns: There is no hydrocephalus. The basal cisterns are patent. Calvarium: There are no calvarial fractures. Sinuses and mastoids: The visualized paranasal sinuses are clear. The mastoid air cells are well pneumatized. Orbits: The bony orbits are grossly intact. IMPRESSION: 1. No acute intracranial findings. 2. No calvarial fractures. ACT 112: Negative or not required by law. Electronically signed by: Aditya Foley M.D. 05/29/2025 10:39 AM Knee X-Ray 05/29/25 10:17 XR knee LT 3V HISTORY: 54 years-old Male fall, pain, abrasion acute left knee pain status post fall COMPARISON: None TECHNIQUE: 3 views of the left knee FINDINGS: Mild tricompartmental osteoarthritis. 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 Mild anteromedial soft tissue swelling. No acute fracture, dislocation or large joint effusion. IMPRESSION: Soft tissue swelling without acute fracture. ACT 112: Negative or not required by law. The above report was generated using voice recognition software. It may contain grammatical, syntax or spelling errors. Electronically signed by: Bean Tolentino M.D. 05/29/2025 11:01 AM Code Status & VTE Plan Code Status DNR/DNI - confirmed with Alana via phone Supervising Physician Co-Signing Physician Notes I personally saw and examined the patient. I independently reviewed the labs, EKG, imaging, problem list, medication list, past medical history and family history. I verified all tinoco points and agree with Jenny Verde PA-C with the following exceptions and/or additions: 54 year old male presents to the ER with fever. Patient is currently responsive only to loud verbal commands when seen. O/E Alert to voice only, HS RRR, no murmurs, Chest CTAB, Abdo soft, unable to roll patient due to size A/P Fever - unknown source but historically the problem has been urinary. UA pending. Welsh catheter ordered. Start IV cefepime. Follow up blood and urine cultures Unresponsiveness - suspect somewhat due to Fentanyl. Unable to take anything PO at this time. Hold further opiates. VBG reassuring. PG Care Time/CCT Total # of Minutes Spent Total Time Spent with Patient: Total time spent is greater than 50% in coordination of care (as documented) at patient's floor/unit and/or counseling patient: 80 minutes Coding Level of Care Code 73522 INT INP/OBS CARE 3/75MIN Diagnoses Toxic metabolic encephalopathy G92.8 Hypomagnesemia E83.42 Fever of unknown origin R50.9 Hypotension I95.9 Generalized pain R52 Bipolar 1 disorder F31.9 Diabetes E11.9 Hypokalemia E87.6
[2025-05-29 15:03] LABS: Base Excess VBG -2.1 mEq/L; HCO3 VBG 23 mmol/L; Oxygen Saturation VBG 67.8 %; PCO2 VBG 41 mmHg (38-50); PO2 VBG 42 mmHg; pH VBG 7.36 (7.36-7.41)
[2025-05-29] MEDS: HYDROCORTISONE SOD SUCCINATE 100 MG/2 ML VIAL IV STA (15:09)
[2025-05-29 15:56] LABS: Appearance Urine Clear (Clear); Bacteria Urine Automated None Seen (None Seen); Epithelial Cell Urine Auto 0-2 /hpf (0-2); Glucose Urine UA Negative (Negative); RBC Urine Automated 0-2 /hpf (0-2); WBC Urine Automated 0-5 /hpf (0-5)
[2025-05-29] MEDS ORDERED: GLUCOSE 10 TAB/TUBE PO PRN (17:01)
[2025-05-29] MEDS ORDERED: ALBUT/IPRATROP 3MG/0.5MG NEB 3 ML VIAL INH PRN (17:01)
[2025-05-29] MEDS ORDERED: GLUCAGON FOR INJ 1 MG VIAL SQ PRN (17:01)
[2025-05-29] MEDS ORDERED: ONDANSETRON INJ 2 MG/ML 2 ML VIAL IV PRN (17:01)
[2025-05-29] MEDS ORDERED: LORazepam 0.5 MG TAB PO PRN (17:01)
[2025-05-29] MEDS ORDERED: GLUCOSE 40% GEL 15 GM TUBE PO PRN (17:01)
[2025-05-29] MEDS ORDERED: ALBUTEROL HFA 8 GM INHALER INH PRN (17:01)
[2025-05-29] MEDS ORDERED: DEXTROSE 50% 50 ML SYRINGE IV PRN (17:01)
[2025-05-29] MEDS ORDERED: ALUMINUM/MAGNESIUM SUSP 30 ML UDC PO PRN (17:01)
[2025-05-29] MEDS ORDERED: CARBOHYDRATES FOR HYPOGLYCEMIA PO PRN (17:01)
[2025-05-29] MEDS ORDERED: MAGNESIUM HYDROXIDE SUSP 30 ML UDC PO PRN (17:01)
--- NOTE | 2025-05-29 17:44 | Electrocardiogram Report ---
Test Reason : Blood Pressure : */* mmHG Vent. Rate : 136 BPM Atrial Rate : 136 BPM P-R Int : 142 ms QRS Dur : 84 ms QT Int : 388 ms P-R-T Axes : 64 -20 63 degrees QTcB Int : 583 ms Sinus tachycardia Poor R wave progression, consider anterior AZ vs. lead placement vs. LVH Abnormal ECG When compared with ECG of 25-May-2025 12:21, Vent. rate has increased by 47 bpm QRS duration has decreased Confirmed by Glynn Sheth ([id number]) on 05/29/2025 5:44:00 PM Referred By: REFERRED SELF Confirmed By: Glynn Sheth
[2025-05-29] MEDS: POTASSIUM CHLORIDE / WTR 10 MEQ/100 ML PLCT IV ONE (18:21)
[2025-05-29] MEDS: INSULIN ASPART PER UNIT CHARGE SC SCH (18:34)
[2025-05-29] MEDS: FORMOTEROL 20 MCG/2 ML VIAL INH SCH (20:26)
[2025-05-29] MEDS: BUDESONIDE 0.5 MG/2 ML VIAL (PULMICORT) INH SCH (20:26)
[2025-05-29] MEDS: LANTUS PER UNIT CHARGE SQ SCH (20:47)
[2025-05-29] MEDS: HYDROCORTISONE SOD 50 MG in SYRINGE 0 ML IV SCH (20:48)
[2025-05-29] MEDS: DESMOPRESSIN ACETATE 0.1 MG TAB PO SCH (20:49)
[2025-05-29] MEDS: ASPIRIN 81 MG ECTAB PO SCH (20:51)
[2025-05-29] MEDS: LITHIUM CARBONATE 300 MG TAB PO SCH (20:51)
[2025-05-29] MEDS: PROPRANOLOL HCL 60 MG LA CAP PO SCH (20:54)
[2025-05-29] MEDS: levETIRAcetam 500 MG TAB PO SCH (20:54)
[2025-05-29] MEDS: MAGNESIUM OXIDE 400 MG TAB PO SCH (20:55)
[2025-05-29] MEDS: MIRTAZAPINE TAB 15 MG TAB PO SCH (20:56)
[2025-05-29] MEDS: METOPROLOL SUCC 25MG EXT REL TAB PO SCH (20:57)
[2025-05-29] MEDS: PRAZOSIN HCL 1 MG CAP PO SCH (20:58)
[2025-05-29] MEDS ORDERED: HYDROCORTISONE SOD SUCCINATE 100 MG/2 ML VIAL IV SCH (21:00)
[2025-05-29] MEDS: LACOSAMIDE 50 MG TABLET PO SCH (21:30)
[2025-05-29] MEDS: CLOPIDOGREL BISULFATE 75 MG TAB PO SCH (21:32)
[2025-05-30 00:05] LABS: A calco-baum cmplx NotReported Not Detected (NotDetected); Bact fragilis Not Reported Not Detected (NotDetected); Blood Culture Id Panel See PCR Comment (NotDetected); C auris Not Reported Not Detected (NotDetected); Calbicans Not Reported Not Detected (NotDetected); Candida glabrata Not Reported Not Detected (NotDetected); Candida krusei Not Reported Not Detected (NotDetected); Cneoformans/gatti Not Reported Not Detected (NotDetected); Cparapsilosis Not Reported Not Detected (NotDetected); Ctropicalis Not Reported Not Detected (NotDetected); E cloacae compx Not Reported Not Detected (NotDetected); Efaecalis Not Reported Not Detected (NotDetected); Efaecium Not Reported Not Detected (NotDetected); Enterobacterales Not Reported Not Detected (NotDetected); Escherichia coli Not Reported Not Detected (NotDetected); H influenzae Not Reported Not Detected (NotDetected); K aerogenes Not Reported Not Detected (NotDetected); Koxytoca Not Reported Not Detected (NotDetected); Kpneumoniae grp Not Reported Not Detected (NotDetected); Lmonocyt Not Reported Not Detected (NotDetected); N meningitidis Not Reported Not Detected (NotDetected); P aeruginosa Not Reported Not Detected (NotDetected); Proteus spp Not Reported Not Detected (NotDetected); Salmonella spp Not Reported Not Detected (NotDetected); Staph lugdunensis Not Reported Not Detected (NotDetected); Staph spp. Not Reported DETECTED (NotDetected); Staphaureus Not Reported DETECTED (NotDetected); Staphepi Not Reported Not Detected (NotDetected); Staphylococcus spp. DETECTED (NotDetected); Stenmaltophilia Not Reported Not Detected (NotDetected); Strep agal(GrpB) Not Reported Not Detected (NotDetected); Strep pneum Not Reported Not Detected (NotDetected); Strep pyog (GrpA) Not Reported Not Detected (NotDetected); Strep spp Not Reported Not Detected (NotDetected)
[2025-05-30 00:47] LABS: mecAC+MREJ Resistant Gene MRSA DETECTED (NotDetected)
[2025-05-30] MEDS: DAPTOmycin 700 MG in SYRINGE 0 ML IV SCH (01:26)
[2025-05-30] MEDS: LEVOTHYROXINE SODIUM 150 MCG TABLET PO SCH (05:54)
[2025-05-30 07:18] LABS: Hematocrit (blood only) 26.3 % (42.0-52.0); Hemoglobin 8.8 g/dl (14.0-18.0); Immature Granulocytes # (auto) 0.05 K/uL (0.01-0.20); Immature Granulocytes % (auto) 0.7 %; Mean Corpuscular Hemoglobin 29.2 pg (25.0-34.0); Mean Corpuscular Volume 87.4 fL (80.0-100.0); Platelet Count 152 K/uL (130-400); RDW Standard Deviation 45.7 fL (36.4-46.3); Red Blood Count 3.01 M/uL (4.70-6.10); White Blood Count 6.92 K/ul (4.8-10.8)
[2025-05-30 07:41] LABS: Alanine Aminotransferase 17.0 U/L (7-52); Albumin Globulin Ratio 1.7 (0.9-2); Alkaline Phosphatase 52.0 U/L (34-104); Anion Gap 5.0 (3-11); Bilirubin,Total 0.4 mg/dl (0.2-1.0); Blood Urea Nitrogen 6.0 mg/dl (6-23); Calcium 8.6 mg/dl (8.6-10.3); Carbon Dioxide 26.0 mmol/L (21-32); Chloride 110.0 mmol/L (98-107); Creatinine Clr Calc Pharmacy 128.3 ml/min; Globulin 2.1 gm/dl (2.5-4.0); Glucose 204.0 mg/dl (70-99(Fasting)); Magnesium 1.8 mg/dl (1.7-2.4); Potassium 4.4 mmol/L (3.5-5.1); Sodium 141.0 mmol/L (136-145); Total Protein 5.7 gm/dl (6.0-8.3)
[2025-05-30] MEDS: DIVALPROEX DELAY RELEASE 500 MG TAB PO SCH (08:07)
[2025-05-30] MEDS: FINASTERIDE 5 MG TAB PO SCH (08:07)
[2025-05-30] MEDS: ARIPiprazole 5 MG TAB PO SCH (08:08)
[2025-05-30] MEDS: ENOXAPARIN INJ 40 MG/0.4 ML SYR SQ SCH (08:08)
[2025-05-30] MEDS: VENLAFAXINE HCL XR 150 MG CAPXR PO SCH (08:08)
[2025-05-30] MEDS: ROSUVASTATIN CALCIUM 20 MG TAB PO SCH (08:08)
[2025-05-30] MEDS: UMECLIDINIUM BROMIDE 62.5MCG/BLISTER 7 PUFFS/INHALER INH SCH (08:08)
[2025-05-30] MEDS: VENLAFAXINE HCL XR 75 MG CAPXR PO SCH (09:30)
--- NOTE | 2025-05-30 21:42 | Hospitalist Progress Note ---
Date of Service May 30, 2025 Assessment & Plan (1) Sepsis due to cellulitis: Plan: Patient fell down 13 steps at his home on 05/29/2025, 8:00am, as patient announced to his that he was going to work on 05/29/2025, 8:00am, even though patient is unemployed. Patient subsequently developed a positive exanthem @ left knee with 3 cm circular region of denuded flesh with granulation tissue covering denuded region completely, with surrounding warmth, slight erythema, NO induration, tenderness, crepitus, fluctuance, discharge (sanguineous, serous, suppurative), ulceration, malodor, or lymphangitic streaking, consistent with cellulitis. Patient subsequently developed sepsis due to acute left knee cellulitis. cf., Blood culture #1 (05/29/2025, 9:50am): GPC clusters cf., Blood culture #2 (05/29/2025, 10:25am): Staphylococcus aureus cf., Blood culture #3 (05/30/2025, 2:45pm): cf., Blood culture #4 (05/30/2025, 2:45pm): Patient received cefepime 2g IV x 1 dose (05/29/2025, 10:30am) in [facility] ER. Patient received daptomycin 700mg IV daily x 1 dose (05/30/2025, 1:26am) in [facility] Med-Surg bd #E212-1 and will continue this antibiotic on 05/31/2025 am. 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 Await identification of Staphylococcus aureus species on 05/29/2025, 10:25am blood culture #2 in order to tailor future antibiotic therapy. (2) Staphylococcus aureus bacteremia with sepsis: Plan: Patient fell down 13 steps at his home on 05/29/2025, 8:00am, as patient announced to his that he was going to work on 05/29/2025, 8:00am, even though patient is unemployed. Patient subsequently developed a positive exanthem @ left knee with 3 cm circular region of denuded flesh with granulation tissue covering denuded region completely, with surrounding warmth, slight erythema, NO induration, tenderness, crepitus, fluctuance, discharge (sanguineous, serous, suppurative), ulceration, malodor, or lymphangitic streaking, consistent with cellulitis. Patient subsequently developed sepsis due to acute non-suppurative, non-bullous staphylococcal cellulitis of left knee. cf., Blood culture #1 (05/29/2025, 9:50am): GPC clusters cf., Blood culture #2 (05/29/2025, 10:25am): Staphylococcus aureus cf., Blood culture #3 (05/30/2025, 2:45pm): cf., Blood culture #4 (05/30/2025, 2:45pm): Patient received cefepime 2g IV x 1 dose (05/29/2025, 10:30am) in [facility] ER. Patient received daptomycin 700mg IV daily x 1 dose (05/30/2025, 1:26am) in [facility] Med-Surg bd #E212-1 and will continue this antibiotic on 05/31/2025 am. 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 Await identification of Staphylococcus aureus species on 05/29/2025, 10:25am blood culture #2 in order to tailor future antibiotic therapy. (3) Toxic metabolic encephalopathy: Plan: Etiology of toxic metabolic encephalopathy was due to acute non-suppurative, non-bullous staphylococcal cellulitis of left knee with hematogenous dissemination (e.g., staphylococcal bacteremia). Subsequently, toxic metabolic encephalopathy RESOLVED rapidly after patient received cefepime 2g IV x 1 dose (05/29/2025, 10:30am) in [facility] ER, followed by daptomycin 700mg IV daily x 1 dose (05/30/2025, 1:26am) in [facility] Med-Surg bd #E21 2-1 and will continue this antibiotic on 05/31/2025 am. (4) Hypomagnesemia: Plan: cf., Mg 1.1 mg/dL (05/29/2025, 9:50am). cf., Mg 1.8 mg/dL (05/30/2025, 6:26am). Etiology of acute hypomagnesemia remains unclear, but was probably due to decreased oral intake of magnesium-containing foods. Patient subsequently received magnesium sulfate 1g IV bid x 2 doses (05/29/2025, 12:52pm, 2:05pm), and magnesium oxide 400mg PO bid x 1 dose (05/29/2025, 8:55pm), and acute hypomagnesemia RESOLVED. Patient subsequently received magnesium oxide 400mg PO bid x 2 doses (05/30/2025, 8:08am, 8:25pm). I will check repeat Mg level in the 05/31/2025 am. (5) Fever of unknown origin: Plan: Due to sepsis, due to: (a) acute left knee non-suppurative, non-bullous staphylococcal cellulitis. (b) acute staphylococcal bacteremia. (6) Hypokalemia: Plan: cf., K 3.3 mmol/L (05/29/2025, 9:50am). cf., K 4.4 mmol/L (05/30/2025, 6:26am). Etiology of acute hypokalemia remains unclear, but was probably due to decreased oral intake of potassium-containing foods. Patient subsequently received KCl 40meq PO x 1 dose (05/29/2025, 11:20am), KCl 10meq IV x 1 dose (05/29/2025, 6:21pm), and acute hypokalemia RESOLVED. I will check repeat K level in the 05/31/2025 am. Plan #Fever of unknown origin - Admit to PCU - Diabetic diet (may eat when more awake/alert) - VS per unit protocol - Obtain VBG d/t somnolence - Puentes catheter ordered to be inserted - Pt panscanned w/o evidence of traumatic fx/infectious source - CRP mildly elevated at 2, ESR and PCT WNL - No leukocytosis or shift on CBC - Fever reported at home 104F and in ED 38.9C - Blood cultures x2 sets obtained/pending - Given dose of IV Cefepime in ED - UA w/ reflex culture ordered - await results, if obvious source continue broad spectrum coverage and await sensitivities to tailor abx choice accordingly - If UA negative, LP to be ordered and consider ID consult - S/P 2L of plasmalyte in ED, defer further IVF at present - Stress dose Solu-Cortef 100mg IV x1 now and 50mg q6 #Frequent falls - Fall precautions - PT/OT eval and tx - Panscanned w/o evidence of traumatic injuries #Encephalopathy - metabolic vs. toxic - ?Related to potential infection vs medication effect from fentanyl given in ED - No witnessed seizure activity - VBG as noted above - PCU with end-tidal CO2 - Pending UA, consider MRI + LP #Hypotension - S/P 2L of IVF as noted above - Hold Bumex and Lisinopril - Metoprolol can be given with parameters #Hypokalemia and hypomagnesemia - Mag Sulfate 1g IVx2 doses given in ED - Increase oral mag ox to 400mg BID - Replace potassium - Repeat CMP + mag in am #Chronic Back Pain - Continue oxycodone and cymbalta #Seizure disorder - Continue lamictal, depakote, vimpat #Bipolar D/O/PTSD/MDD - Continue lithium, Seroquel, Trazodone, Abilify and Effexor #Diabetes Mellitus T2 - Continue Lantus 6u BID - SSI w/ CF 65 and CR 22 - AC and HS BSG checks - Diabetic diet ordered #CAD/DLD - Continue aspirin, plavix, metoprolol and Crestor #COPD/Chronic respiratory failure - Continue supplemental O2 via NC to maintain pulse ox ~92% - Continue neb/inhalers VTE ppx will be covered with Lovenox 40mg sq daily. AM labs have been ordered. Therapy eval as above. Plan has been d/w Dr. Carney who will also see and evaluate this patient. Further orders will be implemented as clinically wa rranted. Admission and Anticipated Discharge Date Admission Date: May 29, 2025 Subjective "I feel great, doc. The antibiotics are helping me a lot." Review of Systems Constitutional: Negative for antecedent/coincident fevers, chills, diaphoresis, cough, wheeze, sore throat, hemoptysis, chest pains, palpitations, pleurisy, nausea, vomiting, diarrhea, abdominal pain, pelvic pain, hematemesis, hematochezia, melena, hematuria, dysuria, frequency, urgency, headaches, dizziness, lightheadedness, visual changes, hearing changes, syncope, travel history, sick contacts, or food/drug ingestions novel or new. All other review of systems are reported as negative by the patient on 05/30/2025. Physical Exam Constitutional: General: Comfortable, coherent, and cooperative. Not confused, obtunded, or lethargic. Patient speaks with regular darren, and in complete, fluent, and articulate 7-9 word sentences without pause, interruption, cough, or wheeze with O2 sat 98% on 3 liters/minute O2 via nasal cannula (05/30/2025, 8:40pm). HEENT: Normocephalic, atraumatic. No nystagmus, gaze paresis, anisocoria, miosis, mydriasis, hyphema, scleral injection, conjunctivitis, or pterygium. No otorrhea or rhinorrhea. No pharyngeal erythema, edema, or discharge. Neck: Supple, no stridor, bruit, goiter, or hepato-jugular reflux. Jugular venous pressure is estimated to be 3 cm above the sternal angle of Roberto, which in turn, is 5 cm above the level of the right atrium; with jugular venous pressure estimated to be 8 cm, then, there is no jugular venous distention on 05/30/2025. Lymphatics: No cervical (anterior/posterior), supraclavicular, infraclavicular, axillary, epitrochlear, or inguinal adenopathy. Chest: Symmetric rise and fall with respirations. Non-tender to palpation. Lungs: Clear to auscultation and percussion. Heart: Regular rate and rhythm. S1 and S2 noted. No S3 or S4 summation gallop. No tripartite friction rub. Grade II/ early systolic murmur @ LLSB without radiation to the carotids, axilla, or back, and which remains invariant in regards to the respiratory cycle. Abdomen: Soft, non-tender, non-distended. No rebound, guarding, Moore's sign, or organomegaly. Bowel sounds auscultated in all 4 quadrants. Extremities: No clubbing, cyanosis, or edema. Skin: No decubitus ulcer or enanthem. Positive exanthem @ left knee with 3 cm circular region of denuded flesh with granulation tissue covering denuded region completely, with surrounding warmth, slight erythema, NO induration, tenderness, crepitus, fluctuance, discharge (sanguineous, serous, suppurative), ulceration, malodor, or lymphangitic streaking, s/p fall down 13 steps at patient's home on 05/29/2025, 8:00am. Neuro: Awake and oriented in regards to person, place, time, and situation. DTR+. 5/5 motor strength in all 4 extremities, both proximally and distally. No myoclonus or tics or tremors. Genito-urinary: No urethral discharge. No puentes catheter. Results & Data Results & Data Vital Signs (Past 12 Hours) Vital Signs Temp Pulse Pulse Resp BP Pulse Ox O2 Del Method 05/30/25 20:40 85 18 98 Nasal Cannula 05/30/25 19:35 36.5 C 83 25 H 131/83 99 Nasal Cannula 05/30/25 19:20 Nasal Cannula 05/30/25 17:57 81 05/30/25 17:57 87 05/30/25 15:41 36.8 C 85 21 144/74 H 96 Nasal Cannula 05/30/25 14:58 99 05/30/25 11:46 36.8 C 85 13 123/77 97 Nasal Cannula O2 Flow Rate 05/30/25 20:40 3 05/30/25 19:35 05/30/25 19:20 4 05/30/25 17:57 05/30/25 17:57 05/30/25 15:41 05/30/25 14:58 05/30/25 11:46 4 Laboratory Results WBC 7.55, N50 L36 M13 E1 B1, Hb 9.5, MCV 87.3, MCHC 33.5, platelet 159 (05/29/2025, 9:50am). WBC 6.92, N84 L9 M6, Hb 8.8, MCV 87.4, MCHC 33.5, platelet 152 (05/30/2025, 6:26am). Na 140, K 3.3, BUN < 3, creatinine 1.60, glucose 101, Ca ionized 1.13 (05/29/2025, 9:58am). Na 141, K 4.4, BUN 6, creatinine 0.81, glucose 204, Ca 8.6 (05/30/2025, 6:26am). Lactic acid #1 1.8 mmol/L (05/29/2025, 9:50am). Lactic acid #2 1.0 mmol/L (05/30/2025, 8:09am). Procalcitonin #1 0.10 ng/mL (05/29/2025, 9:50am). Procalcitonin #2 0.04 ng/mL (05/30/2025, 8:09am). Blood culture #1 (05/29/2025, 9:50am): GPC clusters Blood culture #2 (05/29/2025, 10:25am): Staphylococcus aureus Blood culture #3 (05/30/2025, 2:45pm): Blood culture #4 (05/30/2025, 2:45pm): Diagnostic Findings Portable CXR (05/29/2025, 9:41am): 1. No infiltrate, effusion, pulmonary vascular congestion, pneumothorax. 2. Cardiomegaly. (by my review). CT abd/pelvis without IV contrast (05/29/2025, 9:42am): 1. There is no evidence of solid organ injury in the abdomen or pelvis on this unenhanced examination. 2. The liver is mildly enlarged and steatotic. 3. Right-sided nephrolithiasis. 4. Coronary artery atherosclerosis. 5. 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 CT cervical spine without IV contrast (05/29/2025, 9:42am): 1. No acute cervical spine fracture or subluxation. CT chest without IV contrast (05/29/2025, 9:42am): 1. No acute traumatic findings in chest. CT brain without IV contrast (05/29/2025, 9:42am): 1. No acute bleed, mass, or midline shift. Left knee xray (05/29/2025, 10:17am). 1. Soft tissue swelling. 2. No acute fracture. PG Care Time/CCT Total # of Minutes Spent Total Time Spent with Patient: Total time spent is greater than 50% in coordination of care (as documented) at patient's floor/unit and/or counseling patient: Coding Level of Care Code 23291 SUB INP/OBS CARE 3/50MIN Diagnoses Sepsis due to cellulitis L03.90; A41.9 Staphylococcus aureus bacteremia with sepsis A41.01 Toxic metabolic encephalopathy G92.8 Hypomagnesemia E83.42 Fever of unknown origin R50.9 Hypokalemia E87.6
[2025-05-31 05:58] LABS: Hematocrit (blood only) 23.5 % (42.0-52.0); Hemoglobin 7.8 g/dl (14.0-18.0); Immature Granulocytes # (auto) 0.09 K/uL (0.01-0.20); Immature Granulocytes % (auto) 0.9 %; Mean Corpuscular Hemoglobin 28.9 pg (25.0-34.0); Mean Corpuscular Volume 87.0 fL (80.0-100.0); Platelet Count 139 K/uL (130-400); RDW Standard Deviation 46.1 fL (36.4-46.3); Red Blood Count 2.70 M/uL (4.70-6.10); White Blood Count 10.58 K/ul (4.8-10.8)
[2025-05-31 06:14] LABS: Anion Gap 7.0 (3-11); Blood Urea Nitrogen 9.0 mg/dl (6-23); Calcium 8.3 mg/dl (8.6-10.3); Carbon Dioxide 25.0 mmol/L (21-32); Chloride 108.0 mmol/L (98-107); Creatinine Clr Calc Pharmacy 144.7 ml/min; Glucose 191.0 mg/dl (70-99(Fasting)); Potassium 4.1 mmol/L (3.5-5.1); Sodium 140.0 mmol/L (136-145)
[2025-05-31 06:41] LABS: Dohle Bodies 1+; Polychromasia 1+; Tear Drop Cells 1+
--- NOTE | 2025-05-31 09:23 | Palliative Care Consultation ---
Date of Consultation May 31, 2025 Assessment & Plan (1) Generalized pain: Using OxyIR 15mg tabs for pain mgt, tolerating well. Numerous prior opioid trials/failures/meds not covered - see [facility] OP notes for full details. (2) Generalized weakness: (3) Therapeutic opioid-induced constipation (OIC): Bowel regimen per OP protocol (4) Palliative care by specialist: Plan As above Thank you for allowing us to participate in the ongoing care of this patient. Please page with any additional concerns. Katelyn Lindo DNP Director, Palliative Medicine History of Present Illness Reason for Consultation: patient requests Palliative Care consult Attending Physician: Davy Benoit MD, PhD History of Present Illness Waldo is well known to me from OP [facility] where he is followed for a severe chronically complex pain syndrome. Chronic pain from a broken back which was an injury from 4 yr ago - had surgery has a seizure disorder feels dizzy a lot, +blackouts x few minutes 38 broken bones to dates d/t martial arts, sports states he is supposed to have kidney stone surgery, another brain tumor surgery near pituitary gland (managed by Eric) and an ankle surgery very severe chronic pain "all the time", all over body but worst in back at L4/5 to S1 region where he was injured. Significant pain knees, ankles, shoulders He returned to [facility] approx 12 hr after prior admission with a fall at home, fever, hypotension, inc confusion/AMS, found to be infected with +Staphylococcus aureus growing in cultures His Toxic metabolic encephalopathy etiology of toxic metabolic encephalopathy was due to acute non-suppurative, non-bullous staphylococcal cellulitis of left knee with hematogenous dissemination (e.g., staphylococcal bacteremia). Doing better now, planning for dc home tomorrow with VNS and home PT is back at work Waldo notes he has had to apply for waiver program, to get some daytime support Allergies Allergy/AdvReac Type Severity Reaction Status Date / Time clindamycin Allergy Intermediate SWELLING Verified 05/20/25 11:34 Iodinated Contrast Media Allergy Intermediate face/eye Verified 05/20/25 11:34 swelling Quinolones Allergy Intermediate HIVES Verified 05/20/25 11:34 tomato AdvReac Unknown swelling Verified 05/20/25 11:34 Home Medications Medication Instructions Recorded Confirmed Type lithium carbonate 300 mg tablet 300 mg PO AMHS 06/04/22 05/29/25 History mirtazapine 30 mg tablet (Remeron) 30 mg PO HS 06/23/22 05/29/25 History fluticasone propionate 50 1 spray intranasal HS PRN allergy 03/16/23 05/29/25 Rx mcg/actuation nasal symptoms #16 grams spray,suspension (Flonase Allergy Relief) FreeStyle Rosalie 2 [place] (flash #1 ea 05/13/23 05/02/25 Rx glucose scanning reader) blood sugar diagnostic (Bright ComputingTouch #150 ea 11/22/23 05/02/25 Rx Verio test strips) blood-glucose meter (Bright ComputingTouch #1 ea 11/22/23 05/02/25 Rx Verio Reflect Meter) insulin syringe-needle U-100 1 mL #300 ea 11/22/23 05/02/25 Rx 30 gauge x 1/2" (BD Insulin Syringe Ultra-Fine) lancets 33 gauge (OneTouch Delica #150 ea 11/22/23 05/02/25 Rx Plus Lancet) albuterol sulfate 90 mcg/actuation 2 inh inhalation Q6H PRN shortness 02/24/24 05/29/25 Rx aerosol inhaler (Ventolin HFA) of breath or wheezing #6.7 grams dutasteride 0.5 mg capsule 0.5 mg PO QAM 04/06/24 05/29/25 History glucagon 3 mg/actuation nasal 3 mg intranasal ONCE PRN Severe 04/06/24 05/29/25 History spray (Baqsimi) Hypoglycemia aripiprazole 5 mg tablet 5 mg PO QAM 05/29/24 05/29/25 History insulin glargine 100 unit/mL (3 12 unit subcut HS 07/19/24 05/29/25 History mL) subcutaneous pen (Lantus Solostar U-100 Insulin) ipratropium 0.5 mg-albuterol 3 mg 3 ml inhalation QID PRN wheezing 07/31/24 05/29/25 Rx (2.5 mg base)/3 mL nebulization #90 mL soln nebulizers (Compact Compressor #1 ea 07/31/24 05/02/25 Rx Nebulizer) Botox 200 unit injection See Rx Instructions IM .COMPLEX #1 09/18/24 05/29/25 Rx (onabotulinumtoxinA) ea rosuvastatin 20 mg tablet 20 mg PO QAM #90 tabs 09/19/24 05/29/25 Rx trazodone 100 mg tablet 100 mg PO HS 10/03/24 05/29/25 History pen needle, diabetic 32 gauge x #100 ea 10/23/24 05/02/25 Rx 5/32" (BD Vy 2nd Gen Pen Needle) bumetanide 1 mg tablet 1 mg PO QAM #30 tabs 10/26/24 05/29/25 Rx vitamin B complex (Vitamins B 1 cap PO QAM #30 caps 10/26/24 05/29/25 Rx Complex capsule) lorazepam 0.5 mg tablet 0.5 mg PO DAILY PRN Seizure 11/23/24 05/29/25 History Activity levetiracetam 1,000 mg tablet 1,000 mg PO Q12H #60 tabs 11/26/24 05/29/25 Rx ferrous sulfate 325 mg (65 mg 325 mg PO Q OTHER DAY 11/27/24 05/29/25 History iron) tablet metoprolol succinate 25 mg 25 mg PO HS #90 tabs 11/30/24 05/29/25 Rx tablet,extended release 24 hr clopidogrel 75 mg tablet (Plavix) 75 mg PO QPM 12/03/24 05/29/25 History lacosamide 150 mg tablet 150 mg PO BID #60 tabs 12/26/24 05/29/25 Rx arformoterol 15 mcg/2 mL solution 2 ml inhalation BID 01/16/25 05/29/25 History for nebulization (Brovana) Oxygen Home 01/30/25 05/02/25 History metformin 1,000 mg tablet 1,000 mg PO BID #180 tabs 02/26/25 05/29/25 Rx rimegepant 75 mg disintegrating 75 mg PO DAILY PRN Migraine 02/28/25 05/29/25 Rx tablet (Nurtec ODT) Headache #16 tabs magnesium oxide 400 mg (241.3 mg 400 mg PO DAILY 03/01/25 05/29/25 History magnesium) tablet testosterone 2 pump topical PM #75 grams 03/18/25 05/29/25 Rx nystatin 100,000 unit/gram topical 1 applic topical BID PRN Other 03/19/25 05/29/25 History cream quetiapine 50 mg tablet,extended 50 mg PO QAM 03/19/25 05/29/25 History release 24 hr venlafaxine 150 mg 150 mg PO QAM 03/19/25 05/29/25 History capsule,extended release 24 hr acetylcysteine 200 mg/mL (20 %) 2 ml inhalation BID PRN Chest 03/26/25 05/29/25 Rx solution congestion #100 mL cholecalciferol (vitamin D3) 50 50 mcg PO QPM #90 caps 03/26/25 05/29/25 Rx mcg (2,000 unit) capsule propranolol 120 mg capsule,24 120 mg PO HS 03/26/25 05/29/25 History hr,extended release sodium chloride 7 % for 1 inh inhalation BID #240 mL 03/26/25 05/29/25 Rx nebulization tiotropium bromide 2.5 2 puff inhalation DAILY #4 grams 03/26/25 05/29/25 Rx mcg/actuation mist for inhalation (Spiriva Respimat) prazosin 5 mg capsule 5 mg PO HS 04/05/25 05/29/25 History ramelteon 8 mg tablet 8 mg PO HS 04/05/25 05/29/25 History venlafaxine 75 mg capsule,extended 75 mg PO QAM 04/05/25 05/29/25 History release 24 hr duloxetine 30 mg capsule,delayed 30 mg PO HS #30 caps 04/12/25 05/29/25 Rx release ondansetron 8 mg disintegrating 8 mg PO Q8H PRN nausea and 04/29/25 05/29/25 Rx tablet vomiting #30 tabs phenazopyridine 200 mg tablet 200 mg PO TID #9 tabs 04/29/25 05/29/25 Rx (Pyridium) aspirin 81 mg capsule 81 mg PO QPM 05/03/25 05/29/25 History budesonide 0.5 mg/2 mL suspension 0.5 mg inhalation QPM 05/03/25 05/29/25 History for nebulization divalproex 500 mg tablet,delayed 1,000 mg PO QAM 05/03/25 05/29/25 History release duloxetine 60 mg capsule,delayed 60 mg PO QAM 05/03/25 05/29/25 History release hydrocortisone 10 mg tablet 10 - 20 mg PO UD 05/03/25 05/29/25 History lisinopril 40 mg tablet 40 mg PO QAM 05/03/25 05/29/25 History FreeStyle Rosalie 2 Sensor (flash #6 ea 05/06/25 Rx glucose sensor) levothyroxine 150 mcg tablet 150 mcg PO DAILYBB #30 tabs 05/06/25 05/29/25 Rx (Synthroid) desmopressin 0.2 mg tablet 0.4 mg (2 x 0.2 mg) PO BID #120 05/16/25 05/29/25 Rx tabs naloxone 4 mg/actuation nasal 1 spray intranasal ONCE PRN opioid 05/18/25 05/29/25 Rx spray (Narcan) overdose #2 ea oxycodone 5 mg tablet 15 mg (3 x 5 mg) PO Q4H PRN pain 05/18/25 05/29/25 Rx #84 tabs somatropin 5 mg/1.5 mL (3.3 mg/mL) 0 mg subcut QPM 05/29/25 05/29/25 History subcutaneous pen injector (Norditropin FlexPro) linezolid 600 mg tablet 600 mg PO BID #23 tabs 05/31/25 Rx Patient History Medical History Acute flank pain Kidney stones currently causing severe pain History of pneumonia (03/2025) states has been admitted for total of [address] [facility] for pneumonia, last was approxl 1 month ago Ocular hypertension Ulcerative colitis Mixed hyperlipidemia Lumbar stenosis with neurogenic claudication Idiopathic polyneuropathy Essential tremor Demyelinating disease Compartment syndrome of lower extremity (02/2025) per hx Chronic venous insufficiency Back pain at L4-L5 level Arthralgia Depression with anxiety Hx of fall (11/2024) History of dysphagia Hematuria On home O2 4 L nc History of recent hospitalization states has been in hospital 36 days this year so far with pneumonia- last was approx 1 month ago Sepsis Pyelonephritis Urinary tract obstruction due to kidney stone Lactic acidosis LPRD (laryngopharyngeal reflux disease) Severe obesity (BMI 35.0-35.9 with comorbidity) Uncontrolled type 2 diabetes mellitus with hyperglycemia Suspect low glycation index meaning his A1c is typically about 2 points lower than what his average glucose would suggest. Hypothyroidism Hypertension Non-occlusive coronary artery disease Acute dehydration hx Witnessed seizure-like activity Nonepileptic episode Chronic narcotic dependence COPD with exacerbation (03/2025) follows with dr. mccarthy (last seen while in hospital at [facility] with pneumonia ~) Anti-cyclic citrullinated peptide antibody positive Restrictive lung disease follows with dr. mccarthy, on O2 4L nc at all times Abnormal PFTs (pulmonary function tests) Bipolar disorder (10/11/22) Obstructive sleep apnea cpap 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 Follows with endocrinology- Secondary adrenal insufficiency Transient alteration of awareness Chronic adrenal insufficiency Leukocytosis Acute asthma exacerbation hx Acute on chronic hypoxic respiratory failure O2 4L nc Migraine Hematoma Growth hormone deficiency Diaphoresis hx Acute hypoxic respiratory failure hx Influenza A (12/2024) hx- Status epilepticus (09/13/24) Knee hemarthrosis, right (09/13/24) Acute on chronic anemia (09/13/24) Acute metabolic encephalopathy (09/13/24) hx Laceration of toe of right foot Closed fracture of right fibula with malunion Right fibular fracture hx Acute on chronic respiratory failure with hypoxia and hypercapnia Shortness of breath only if not wearing oxygen Chronic respiratory failure with hypoxia Obesity CKD (chronic kidney disease), stage III Peripheral edema Atrial fibrillation (02/15/24) no cardioversion- has loop recorder and watchmans device, follows with dr. kilgore (03/2025 while inpt.) Chronic low back pain Panhypopituitarism Lumbosacral radiculopathy Toxic encephalopathy Chest pain hx Acute dyspnea hx Acute CHF hx Hypoglycemia hx Syncope and collapse Reason for loop recorder No recent issues since bed bound from femur fracture in Sep 2022 per patient Internal hemorrhoids Recurrent seizures (05/01/25) goes sometimes months without seizures, then may may have 2 in one day- last seizure- 05/01/25- grand mal, lost control of bowel and bladder- informed neuro, dr. villa- told to stay on meds (last saw dr. villa on tu04/30/25) Pituitary diabetes insipidus Spondylolysis, lumbar region Right lumbar radiculopathy HTN (hypertension) Adrenal insufficiency Pituitary adenoma Hyperactive gag reflex BRCA gene positive tested positive in Aug 2023 [place] Family history of BRCA gene mutation PTSD (post-traumatic stress disorder) Epidural lipomatosis Chronic left sacroiliac pain Benzodiazepine overdose hx Presence of cardiac device Loop recorder > placed at [facility]- last checked fall 2023 Hx of fracture of foot Sep 2022- right > cast since removed > still gets painful Fracture of fibula, right, closed Cerebral concussion May 2023 during seizure > no further issues Orthostatic hypotension Sensorineural hearing loss of both ears Rectal bleeding on occasion History of COVID-19 10/2021 - fatigue; resolved. Mitral valve regurgitation follows with Dr. kilgore Vertigo Lower extremity edema Elevated LFTs Bilateral hand pain Pituitary neoplasm Dx'ed in 2001- s/p surgical resection and XRT Repeat surgery in 2018 secondary to tumor regrowth at [facility] Prostate mass benign Bladder mass benign Surgical History Presence of Watchman left atrial appendage closure device (02/2024) eric History of arthroplasty of left knee (2014) S/P TURP (status post transurethral resection of prostate) History of lumbar fusion (07/2022) [facility] Jul 2022 History of cardiac cath (07/2021) 07/2021 - no stents- no mi - [facility]- follows with dr. kilgore S/P epidural steroid injection History of lithotripsy Status post right foot surgery replaced 5th metatarsal--hardware in place History of bladder surgery remove mass History of prostate surgery (2017) remove mass- not malignant History of colonoscopy History of esophagogastroduodenoscopy (EGD) History of tooth extraction History of wisdom tooth extraction History of brain surgery x2---2004 @ [facility] [place], 2018 @ [facility]--for brain tumors > caused epilepsy Family History Grandmother (Paternal) Family history of diabetes mellitus Aunt Family history of diabetes mellitus Uncle Family history of diabetes mellitus Father , at 85 years of age from dementia. Prostate cancer Heart disease Osteoarthritis Mother , at 84 years of age from acute [place]. Cardiac disorder Grandmother (Maternal) Myocardial infarction Other Asthma Cancer Hypertension No family history of adverse response to anesthesia No family history of bleeding disorder Stroke Denies family history of Ovarian cancer Breast cancer Colorectal cancer Social History Smoking Status: Never smoker Tobacco Type: Smokeless Tobacco (Dip or Chew) Second Hand Exposure: No; Do You Dip or Chew Tobacco: No; Hx Alcohol Use: No Hx Substance Use: No Preferred Language: Persian Communication Ability: Effective Communication Ability Comment: Unable to obtain due to patient condition. 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 caffeine: No (1/2 20 oz bottle of mountain dew. ) during the past year weight has: increased > 10 lbs Physical Activity Frequency: Daily Physical Activity Frequency Comment: walking, 1.5 miles daily. Seatbelt Use: always Do you think of yourself as: straight/heterosexual Gender Identity: Male Assistive Devices: Cane, Oxygen - Continuous and Walker Review of Systems Review of Systems: All systems reviewed & are unremarkable except as noted in Subjective Physical Exam Constitutional: + physical limitations, cooperative and comfortable Eyes: PERRL, conjunctivae normal, anicteric sclerae ENMT: external ear and nose normal, oropharynx normal dentition fair Neck: + short neck, + limited neck extension a nd + facial hair Thyroid: no thyromegaly Respiratory: normal respiratory effort, able to speak in complete sentences and symmetric chest movement; no respiratory distress Auscultation: lungs clear to auscultation bilaterally Cardiovascular: RRR, no murmur, no edema Gastrointestinal (Abdomen): Inspection/Auscultation: abdomen normal to inspection and normal bowel sounds; abdomen not distended Percussion/Palpation: abdomen soft; abdomen nontender and no guarding Musculoskeletal: Head/Neck/Chest: normocephalic and head atraumatic (healing scabs) Skin: + turgor decreased Neurologic: PERRL, EOMI, accommodation nl, no face palsy, no dysarthria Cranial Nerves: no nystagmus Psychiatric: A+Ox3, euthymic affect Eye Contact: good eye contact Results & Data Vital Signs (Past 12 Hours) Vital Signs Temp Pulse Pulse Resp BP Pulse Ox O2 Del Method 05/31/25 08:17 Nasal Cannula 05/31/25 07:40 36.7 C 80 16 135/77 97 Room Air, Nasal Cannula 05/31/25 07:05 84 16 96 Room Air 05/31/25 02:57 36.9 C 80 17 129/71 95 Nasal Cannula 05/31/25 00:00 87 05/30/25 23:10 86 15 98 05/30/25 22:57 36.9 C 90 15 139/70 97 Nasal Cannula O2 Flow Rate FiO2 05/31/25 08:17 4 05/31/25 07:40 1 05/31/25 07:05 05/31/25 02:57 05/31/25 00:00 05/30/25 23:10 30 05/30/25 22:57 PG Care Time/CCT Total # of Minutes Spent Total Time Spent with Patient: Total time spent is greater than 50% in coordination of care (as documented) at patient's floor/unit and/or counseling patient: I spent 55 minutes overall addressing this case: 15 min in medical data review/discussion with referring provider(s) and/or preparation for the visit 15 min in direct interaction with the patient/exam 000 min in Advance Care Planning/Goals of Care discussions as detailed above in note (must be >16min) 10 min in subsequent review and synthesis of assessment and plan 15 min communicating with other providers regarding the patient's case: [place] [address] IN/OBS CONSULT LVL 4,60M Patient Type New History Comprehensive Exam Comprehensive Medical Decision Making High Complexity Diagnoses Generalized pain R52 Generalized weakness R53.1 Therapeutic opioid-induced constipation (OIC) K59.03; T40.2X5A Palliative care by specialist Z51.5 Comment [id number]
[2025-05-31] MEDS: LINEZOLID 600 MG TAB PO SCH (10:30)
--- NOTE | 2025-05-31 19:11 | Hospitalist Progress Note ---
Date of Service May 30, 2025 Assessment & Plan (1) Sepsis due to cellulitis: Plan: Patient fell down 13 steps at his home on 05/29/2025, 8:00am, as patient announced to his that he was going to work on 05/29/2025, 8:00am, even though patient is unemployed. Patient subsequently developed a positive exanthem @ left knee with 3 cm circular region of denuded flesh with granulation tissue covering denuded region completely, with surrounding warmth, slight erythema, NO induration, tenderness, crepitus, fluctuance, discharge (sanguineous, serous, suppurative), ulceration, malodor, or lymphangitic streaking, consistent with cellulitis. Patient subsequently developed sepsis due to acute left knee cellulitis. cf., Blood culture #1 (05/29/2025, 9:50am): MRSA cf., Blood culture #2 (05/29/2025, 10:25am): MRSA cf., Blood culture #3 (05/30/2025, 2:45pm): cf., Blood culture #4 (05/30/2025, 2:45pm): Patient received cefepime 2g IV x 1 dose (05/29/2025, 10:30am) in [facility]. Patient received daptomycin 700mg IV daily x 2 doses (05/30/2025, 1:26am; 05/31/2025, 12:42am) in [facility] bd #[id number]. Patient subsequently was transitioned off daptomycin 700mg IV daily and started on linezolid 600mg PO bid (day #1 on 05/31/2025, 10:30am) with anticipated D/C home in the 06/01/2025 am on linezolid 600mg PO bid for 12 more days, to complete a total of 14 days of antibiotic therapy, starting with the 05/30/2025, 2:45pm blood cultures #3 and #4, assuming that both blood cultures remain negative/normal. 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 (2) Staphylococcus aureus bacteremia with sepsis: Plan: Patient fell down 13 steps at his home on 05/29/2025, 8:00am, as patient announced to his that he was going to work on 05/29/2025, 8:00am, even though patient is unemployed. Patient subsequently developed a positive exanthem @ left knee with 3 cm circular region of denuded flesh with granulation tissue covering denuded region completely, with surrounding warmth, slight erythema, NO induration, tenderness, crepitus, fluctuance, discharge (sanguineous, serous, suppurative), ulceration, malodor, or lymphangitic streaking, consistent with cellulitis. Patient subsequently developed sepsis due to acute left knee cellulitis. cf., Blood culture #1 (05/29/2025, 9:50am): MRSA cf., Blood culture #2 (05/29/2025, 10:25am): MRSA cf., Blood culture #3 (05/30/2025, 2:45pm): cf., Blood culture #4 (05/30/2025, 2:45pm): Patient received cefepime 2g IV x 1 dose (05/29/2025, 10:30am) in [facility]. Patient received daptomycin 700mg IV daily x 2 doses (05/30/2025, 1:26am; 05/31/2025, 12:42am) in [facility] bd #E212-1. Patient subsequently was transitioned off daptomycin 700mg IV daily and started on linezolid 600mg PO bid (day #1 on 05/31/2025, 10:30am) with anticipated D/C home in the 06/01/2025 am on linezolid 600mg PO bid for 12 more days, to complete a total of 14 days of antibiotic therapy, starting with the 05/30/2025, 2:45pm blood cultures #3 and #4, assuming that both blood cultures remain n egative/normal. 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 (3) Toxic metabolic encephalopathy: Plan: Etiology of toxic metabolic encephalopathy was due to acute non-suppurative, non-bullous staphylococcal cellulitis of left knee with hematogenous dissemination (e.g., staphylococcal bacteremia). Subsequently, toxic metabolic encephalopathy RESOLVED rapidly after patient received cefepime 2g IV x 1 dose (05/29/2025, 10:30am) in [facility], followed by daptomycin 700mg IV daily x 2 doses (05/30/2025, 1:26am; 05/31/2025, 12:42am) in [facility] bd #E212-1. Patient subsequently was transitioned off daptomycin 700mg IV daily and started on linezolid 600mg PO bid (day #1 on 05/31/2025, 10:30am) with anticipated D/C home in the 06/01/2025 am on linezolid 600mg PO bid for 12 more days, to complete a total of 14 days of antibiotic therapy, starting with the 05/30/2025, 2:45pm blood cultures #3 and #4, assuming that both blood cultures remain negative/normal. (4) Hypomagnesemia: Plan: cf., Mg 1.1 mg/dL (05/29/2025, 9:50am). cf., Mg 1.8 mg/dL (05/30/2025, 6:26am). Etiology of acute hypomagnesemia remains unclear, but was probably due to decreased oral intake of magnesium-containing foods. Patient subsequently received magnesium sulfate 1g IV bid x 2 doses (05/29/2025, 12:52pm, 2:05pm), and magnesium oxide 400mg PO bid x 1 dose (05/29/2025, 8:55pm), and acute hypomagnesemia RESOLVED. Patient subsequently received magnesium oxide 400mg PO bid x 2 doses (05/30/2025, 8:08am, 8:25pm). I will check repeat Mg level in the 06/01/2025 am. (5) Fever of unknown origin: Plan: Due to sepsis, due to: (a) acute left knee non-suppurative, non-bullous staphylococcal cellulitis. (b) acute staphylococcal bacteremia. (6) Hypokalemia: Plan: cf., K 3.3 mmol/L (05/29/2025, 9:50am). cf., K 4.4 mmol/L (05/30/2025, 6:26am). cf., K 4.1 mmol/L (05/31/2025, 5:40am). Etiology of acute hypokalemia remains unclear, but was probably due to decreased oral intake of potassium-containing foods. Patient subsequently received KCl 40meq PO x 1 dose (05/29/2025, 11:20am), KCl 10meq IV x 1 dose (05/29/2025, 6:21pm), and acute hypokalemia RESOLVED. I will check repeat K level in the 06/01/2025 am. Plan #Fever of unknown origin - Admit to PCU - Diabetic diet (may eat when more awake/alert) - VS per unit protocol - Obtain VBG d/t somnolence - Puentes catheter ordered to be inserted - Pt panscanned w/o evidence of traumatic fx/infectious source - CRP mildly elevated at 2, ESR and PCT WNL - No leukocytosis or shift on CBC - Fever reported at home 104F and in ED 38.9C - Blood cultures x2 sets obtained/pending - Given dose of IV Cefepime in ED - UA w/ reflex culture ordered - await results, if obvious source continue broad spectrum coverage and await sensitivities to tailor abx choice accordingly - If UA negative, LP to be ordered and consider ID consult - S/P 2L of plasmalyte in ED, defer further IVF at present - Stress dose Solu-Cortef 100mg IV x1 now and 50mg q6 #Frequent falls - Fall precautions - PT/OT eval and tx - Panscanned w/o evidence of traumatic injuries #Encephalopathy - metabolic vs. toxic - ?Related to potential infection vs medication effect from fentanyl given in ED - No witnessed seizure activity - VBG as noted above - PCU with end-tidal CO2 - Pending UA, consider MRI + LP #Hypotension - S/P 2L of IVF as noted above - Hold Bumex and Lisinopril - Metoprolol can be given with parameters #Hypokalemia and hypomagnesemia - Mag Sulfate 1g IVx2 doses given in ED - Increase oral mag ox to 400mg BID - Replace potassium - Repeat CMP + mag in am #Chronic Back Pain - Continue oxycodone and cymbalta #Seizure disorder - Continue lamictal, depakote, vimpat #Bipolar D/O/PTSD/MDD - Continue lithium, Seroquel, Trazodone, Abilify and Effexor #Diabetes Mellitus T2 - Continue Lantus 6u BID - SSI w/ CF 65 and CR 22 - AC and HS BSG checks - Diabetic diet ordered #CAD/DLD - Continue aspirin, plavix, metoprolol and Crestor #COPD/Chronic respiratory failure - Continue supplemental O2 via NC to maintain pulse ox ~92% - Continue neb/inhalers VTE ppx will be covered with Lovenox 40mg sq daily. AM labs have been ordered. Therapy eval as above. Plan has been d/w Dr. Carney who will also see and evaluate this patient. Further orders will be implemented as clinically warranted. Admission and Anticipated Discharge Date Admission Date: May 29, 2025 Subjective "I feel fine today, but at home, my beloved 15 years old Min Pin (e.g., miniature Doberman Pinscher) is being put down as he is wobbly and weak in the legs. I'm gonna miss him; I had him since he was a puppy in [place], [place] 15 years ago. My is taking him to the press setup operator today to be put down, so if I can stay today and go home tomorrow, that would be great." Review of Systems Constitutional: Negative for antecedent/coincident fevers, chills, diaphoresis, cough, wheeze, sore throat, hemoptysis, chest pains, palpitations, pleurisy, nausea, vomiting, diarrhea, abdominal pain, pelvic pain, hematemesis, hematochezia, melena, hematuria, dysuria, frequency, urgency, headaches, dizziness, lightheadedness, visual changes, hearing changes, syncope, travel history, sick contacts, or food/drug ingestions novel or new. All other review of systems are reported as negative by the patient on 05/31/2025. Physical Exam Constitutional: General: Comfortable, coherent, and cooperative. Not confused, obtunded, or lethargic. Patient speaks with regular darren, and in complete, fluent, and articulate 7-9 word sentences without pause, interruption, cough, or wheeze with O2 sat 98% on 3 liters/minute O2 via nasal cannula (05/30/2025, 8:40pm). O2 sat 97% on 1 liter/minute O2 via nasal cannula (05/31/2025, 7:40am). HEENT: Normocephalic, atraumatic. No nystagmus, gaze paresis, anisocoria, miosis, mydriasis, hyphema, scleral injection, conjunctivitis, or pterygium. No otorrhea or rhinorrhea. No pharyngeal erythema, edema, or disch arge. Neck: Supple, no stridor, bruit, goiter, or hepato-jugular reflux. Jugular venous pressure is estimated to be 3 cm above the sternal angle of Roberto, which in turn, is 5 cm above the level of the right atrium; with jugular venous pressure estimated to be 8 cm, then, there is no jugular venous distention on 05/31/2025. Lymphatics: No cervical (anterior/posterior), supraclavicular, infraclavicular, axillary, epitrochlear, or inguinal adenopathy. Chest: Symmetric rise and fall with respirations. Non-tender to palpation. Lungs: Clear to auscultation and percussion. Heart: Regular rate and rhythm. S1 and S2 noted. No S3 or S4 summation gallop. No tripartite friction rub. Grade II/ early systolic murmur @ LLSB without radiation to the carotids, axilla, or back, and which remains invariant in regards to the respiratory cycle. Abdomen: Soft, non-tender, non-distended. No rebound, guarding, Moore's sign, or organomegaly. Bowel sounds auscultated in all 4 quadrants. Extremities: No clubbing, cyanosis, or edema. Skin: No decubitus ulcer or enanthem. Positive exanthem @ left knee with 3 cm circular region of denuded flesh with granulation tissue covering denuded region completely, with surrounding, but DECREASED warmth, slight erythema on 05/31/2025, compared to 05/30/2025 exam, still NO induration, tenderness, crepitus, fluctuance, discharge (sanguineous, serous, suppurative), ulceration, malodor, or lymphangitic streaking, s/p fall down 13 steps at patient's home on 05/29/2025, 8:00am. Neuro: Awake and oriented in regards to person, place, time, and situation. DTR+. 5/5 motor strength in all 4 extremities, both proximally and distally. No myoclonus or tics or tremors. Genito-urinary: No urethral discharge. No puentes catheter. Results & Data Results & Data Vital Signs (Past 12 Hours) Vital Signs Temp Pulse Pulse Resp BP Pulse Ox O2 Del Method 05/30/25 20:40 85 18 98 Nasal Cannula 05/30/25 19:35 36.5 C 83 25 H 131/83 99 Nasal Cannula 05/30/25 19:20 Nasal Cannula 05/30/25 17:57 81 05/30/25 17:57 87 05/30/25 15:41 36.8 C 85 21 144/74 H 96 Nasal Cannula 05/30/25 14:58 99 05/30/25 11:46 36.8 C 85 13 123/77 97 Nasal Cannula O2 Flow Rate 05/30/25 20:40 3 05/30/25 19:35 05/30/25 19:20 4 05/30/25 17:57 05/30/25 17:57 05/30/25 15:41 05/30/25 14:58 05/30/25 11:46 4 Laboratory Results WBC 7.55, N50 L36 M13 E1 B1, Hb 9.5, MCV 87.3, MCHC 33.5, platelet 159 (05/29/2025, 9:50am). WBC 6.92, N84 L9 M6, Hb 8.8, MCV 87.4, MCHC 33.5, platelet 152 (05/30/2025, 6:26am). WBC 10.58, N81 L12 M6, Hb 7.8, MCV 87.0, MCHC 33.2, platelet 139 (05/31/2025, 5:40am). Na 140, K 3.3, BUN < 3, creatinine 1.60, glucose 101, Ca ionized 1.13 (05/29/2025, 9:58am). Na 141, K 4.4, BUN 6, creatinine 0.81, glucose 204, Ca 8.6 (05/30/2025, 6:26am). Na 140, K 4.1, BUN 9, creatinine 0.72, glucose 191, Ca 8.3 (05/31/2025, 5:40am). Lactic acid #1 1.8 mmol/L (05/29/2025, 9:50am). Lactic acid #2 1.0 mmol/L (05/30/2025, 8:09am). Lactic acid #3 2.0 mmol/L (05/31/2025, 5:45am). Procalcitonin #1 0.10 ng/mL (05/29/2025, 9:50am). Procalcitonin #2 0.04 ng/mL (05/30/2025, 8:09am). Procalcitonin #3 < 0.02 ng/mL (05/31/2025, 5:40am). Blood culture #1 (05/29/2025, 9:50am): MRSA Blood culture #2 (05/29/2025, 10:25am): MRSA Blood culture #3 (05/30/2025, 2:45pm): Blood culture #4 (05/30/2025, 2:45pm): Diagnostic Findings Portable CXR (05/29/2025, 9:41am): 1. No infiltrate, effusion, pulmonary vascular congestion, pneumothorax. 2. Cardiomegaly. (by my review). CT abd/pelvis without IV contrast (05/29/2025, 9:42am): 1. There is no evidence of solid organ injury in the abdomen or pelvis on this unenhanced examination. 2. The liver is mildly enlarged and steatotic. 3. Right-sided nephrolithiasis. 4. Coronary artery atherosclerosis. 5. 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 CT cervical spine without IV contrast (05/29/2025, 9:42am): 1. No acute cervical spine fracture or subluxation. CT chest without IV contrast (05/29/2025, 9:42am): 1. No acute traumatic findings in chest. CT brain without IV contrast (05/29/2025, 9:42am): 1. No acute bleed, mass, or midline shift. Left knee xray (05/29/2025, 10:17am). 1. Soft tissue swelling. 2. No acute fracture. PG Care Time/CCT Total # of Minutes Spent Total Time Spent with Patient: Total time spent is greater than 50% in coordination of care (as documented) at patient's floor/unit and/or counseling patient: Coding Level of Care Code 15669 SUB INP/OBS CARE 2/35MIN Diagnoses Sepsis due to cellulitis L03.90; A41.9 Staphylococcus aureus bacteremia with sepsis A41.01 Toxic metabolic encephalopathy G92.8 Hypomagnesemia E83.42 Fever of unknown origin R50.9 Hypokalemia E87.6
[2025-05-31 19:45] LABS: Magnesium 1.8 mg/dl (1.7-2.4)
[2025-06-01 06:54] LABS: Hematocrit (blood only) 25.9 % (42.0-52.0); Hemoglobin 8.3 g/dl (14.0-18.0); Immature Granulocytes # (auto) 0.23 K/uL (0.01-0.20); Immature Granulocytes % (auto) 2.3 %; Mean Corpuscular Hemoglobin 28.6 pg (25.0-34.0); Mean Corpuscular Volume 89.3 fL (80.0-100.0); Platelet Count 152 K/uL (130-400); RDW Standard Deviation 48.1 fL (36.4-46.3); Red Blood Count 2.90 M/uL (4.70-6.10); White Blood Count 9.90 K/ul (4.8-10.8)
[2025-06-01 07:10] LABS: Anion Gap 5.0 (3-11); Blood Urea Nitrogen 15.0 mg/dl (6-23); Calcium 8.6 mg/dl (8.6-10.3); Carbon Dioxide 29.0 mmol/L (21-32); Chloride 109.0 mmol/L (98-107); Creatinine Clr Calc Pharmacy 119.5 ml/min; Glucose 185.0 mg/dl (70-99(Fasting)); Magnesium 1.9 mg/dl (1.7-2.4); Potassium 4.5 mmol/L (3.5-5.1); Sodium 143.0 mmol/L (136-145)
--- NOTE | 2025-06-01 22:22 | Hospitalist Progress Note ---
Date of Service June 01, 2025 Assessment & Plan (1) Sepsis due to cellulitis: Plan: Patient fell down 13 steps at his home on 05/29/2025, 8:00am, as patient announced to his that he was going to work on 05/29/2025, 8:00am, even though patient is unemployed. Patient subsequently developed a positive exanthem @ left knee with 3 cm circular region of denuded flesh with granulation tissue covering denuded region completely, with surrounding warmth, slight erythema, NO induration, tenderness, crepitus, fluctuance, discharge (sanguineous, serous, suppurative), ulceration, malodor, or lymphangitic streaking, consistent with cellulitis. Patient subsequently developed sepsis due to acute left knee cellulitis. cf., Blood culture #1 (05/29/2025, 9:50am): MRSA cf., Blood culture #2 (05/29/2025, 10:25am): MRSA cf., Blood culture #3 (05/30/2025, 2:45pm): cf., Blood culture #4 (05/30/2025, 2:45pm): Patient received cefepime 2g IV x 1 dose (05/29/2025, 10:30am) in [facility]. Patient received daptomycin 700mg IV daily x 2 doses (05/30/2025, 1:26am; 05/31/2025, 12:42am) in [facility] Med-Surg bd #[id number]. Patient subsequently was transitioned off daptomycin 700mg IV daily and started on linezolid 600mg PO bid (day #1 on 05/31/2025, 10:30am) with anticipated D/C home or to [facility] (if patient's insurance company approves patient for acute rehab @ [facility]) in the 06/04/2025 am, on linezolid 600mg PO bid for 12 more days, to complete a total of 14 days of antibiotic therapy, starting with the 05/30/2025, 2:45pm blood cultures #3 and #4, assuming that both blood cultures remain negative/normal. 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 (2) Staphylococcus aureus bacteremia with sepsis: Plan: Patient fell down 13 steps at his home on 05/29/2025, 8:00am, as patient announced to his that he was going to work on 05/29/2025, 8:00am, even though patient is unemployed. Patient subsequently developed a positive exanthem @ left knee with 3 cm circular region of denuded flesh with granulation tissue covering denuded region completely, with surrounding warmth, slight erythema, NO induration, tenderness, crepitus, fluctuance, discharge (sanguineous, serous, suppurative), ulceration, malodor, or lymphangitic streaking, consistent with cellulitis. Patient subsequently developed sepsis due to acute left knee cellulitis. cf., Blood culture #1 (05/29/2025, 9:50am): MRSA cf., Blood culture #2 (05/29/2025, 10:25am): MRSA cf., Blood culture #3 (05/30/2025, 2:45pm): cf., Blood culture #4 (05/30/2025, 2:45pm): Patient received cefepime 2g IV x 1 dose (05/29/2025, 10:30am) in [facility]. Patient received daptomycin 700mg IV daily x 2 doses (05/30/2025, 1:26am; 05/31/2025, 12:42am) in [facility] Med-Surg bd #[id number]. Patient subsequently was transitioned off daptomycin 700mg IV daily and started on linezolid 600mg PO bid (day #1 on 05/31/2025, 10:30am) with anticipated D/C home or to [facility] (if patient's insurance company approves patient for acute rehab @ [facility]) in the 06/04/2025 am, on linezolid 600mg PO bid for 12 more days, to complete a total of 14 days of antibiotic therapy, starting with the 05/30/2025, 2:45pm blood cultures #3 and #4, assuming that both blood cultures remain negative/normal. 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 (3) Toxic metabolic encephalopathy: Plan: Etiology of toxic metabolic encephalopathy was due to acute non-suppurative, non-bullous staphylococcal cellulitis of left knee with hematogenous dissemination (e.g., staphylococcal bacteremia). Subsequently, toxic metabolic encephalopathy RESOLVED rapidly after patient received cefepime 2g IV x 1 dose (05/29/2025, 10:30am) in [facility], followed by daptomycin 700mg IV daily x 2 doses (05/30/2025, 1:26am; 05/31/2025, 12:42am) in [facility] Med-Surg bd #[id number]. Patient subsequently was transitioned off daptomycin 700mg IV daily and started on linezolid 600mg PO bid (day #1 on 05/31/2025, 10:30am) with anticipated D/C home or to [facility] (if patient's insurance company approves patient for acute rehab @ [facility]) in the 06/04/2025 am, on linezolid 600mg PO bid for 12 more days, to complete a total of 14 days of antibiotic therapy, starting with the 05/30/2025, 2:45pm blood cultures #3 and #4, assuming that both blood cultures remain negative/normal. (4) Hypomagnesemia: Plan: cf., Mg 1.1 mg/dL (05/29/2025, 9:50am). cf., Mg 1.8 mg/dL (05/30/2025, 6:26am). cf., Mg 1.8 mg/dL (05/31/2025, 5:40am). cf., Mg 1.9 mg/dL (06/01/2025, 6:34am). Etiology of acute hypomagnesemia remains unclear, but was probably due to decreased oral intake of magnesium-containing foods. Patient subsequently received magnesium sulfate 1g IV bid x 2 doses (05/29/2025, 12:52pm, 2:05pm), and magnesium oxide 400mg PO bid x 1 dose (05/29/2025, 8:55pm), and acute hypomagnesemia RESOLVED. Patient subsequently received magnesium oxide 400mg PO bid x 2 doses (05/30/2025, 8:08am, 8:25pm). I will check repeat Mg level in the 06/02/2025 am for any recurrence of acute hypomagnesemia. (5) Fever of unknown origin: Plan: Due to sepsis, due to: (a) acute left knee non-suppurative, non-bullous staphy lococcal cellulitis. (b) acute staphylococcal bacteremia. (6) Hypokalemia: Plan: cf., K 3.3 mmol/L (05/29/2025, 9:50am). cf., K 4.4 mmol/L (05/30/2025, 6:26am). cf., K 4.1 mmol/L (05/31/2025, 5:40am). cf., K 4.5 mmol/L (06/01/2025, 6:35am). Etiology of acute hypokalemia remains unclear, but was probably due to decreased oral intake of potassium-containing foods. Patient subsequently received KCl 40meq PO x 1 dose (05/29/2025, 11:20am), KCl 10meq IV x 1 dose (05/29/2025, 6:21pm), and acute hypokalemia RESOLVED. I will check repeat K level in the 06/02/2025 am for any recurrence of acute hypokalemia. Plan #Fever of unknown origin - Admit to PCU - Diabetic diet (may eat when more awake/alert) - VS per unit protocol - Obtain VBG d/t somnolence - Puentes catheter ordered to be inserted - Pt panscanned w/o evidence of traumatic fx/infectious source - CRP mildly elevated at 2, ESR and PCT WNL - No leukocytosis or shift on CBC - Fever reported at home 104F and in ED 38.9C - Blood cultures x2 sets obtained/pending - Given dose of IV Cefepime in ED - UA w/ reflex culture ordered - await results, if obvious source continue broad spectrum coverage and await sensitivities to tailor abx choice accordingly - If UA negative, LP to be ordered and consider ID consult - S/P 2L of plasmalyte in ED, defer further IVF at present - Stress dose Solu-Cortef 100mg IV x1 now and 50mg q6 #Frequent falls - Fall precautions - PT/OT eval and tx - Panscanned w/o evidence of traumatic injuries #Encephalopathy - metabolic vs. toxic - ?Related to potential infection vs medication effect from fentanyl given in ED - No witnessed seizure activity - VBG as noted above - PCU with end-tidal CO2 - Pending UA, consider MRI + LP #Hypotension - S/P 2L of IVF as noted above - Hold Bumex and Lisinopril - Metoprolol can be given with parameters #Hypokalemia and hypomagnesemia - Mag Sulfate 1g IVx2 doses given in ED - Increase oral mag ox to 400mg BID - Replace potassium - Repeat CMP + mag in am #Chronic Back Pain - Continue oxycodone and cymbalta #Seizure disorder - Continue lamictal, depakote, vimpat #Bipolar D/O/PTSD/MDD - Continue lithium, Seroquel, Trazodone, Abilify and Effexor #Diabetes Mellitus T2 - Continue Lantus 6u BID - SSI w/ CF 65 and CR 22 - AC and HS BSG checks - Diabetic diet ordered #CAD/DLD - Continue aspirin, plavix, metoprolol and Crestor #COPD/Chronic respiratory failure - Continue supplemental O2 via NC to maintain pulse ox ~92% - Continue neb/inhalers VTE ppx will be covered with Lovenox 40mg sq daily. AM labs have been ordered. Therapy eval as above. Plan has been d/w Dr. Carney who will also see and evaluate this patient. Further orders will be implemented as clinically warranted. Admission and Anticipated Discharge Date Admission Date: May 29, 2025 Subjective "Today is a bad day. I had to put my beloved 15 years old Min Pin (e.g., miniature Doberman Pinscher) down as he is wobbly and weak in the legs. I'm gonna miss him; I had him since he was a puppy in [place], [place] 15 years ago. My took him to the medical assembly today to be put down, so I just can't go home today. I can't even stand up from the bed here in the hospital. I am weak." Review of Systems Constitutional: Positive for major depression (mild, no suicidal ideation) at having his beloved 15 years old Min Pin (e.g., miniature Doberman Pinscher) down as he is wobbly and weak in the legs. I'm gonna miss him; I had him since he was a puppy in [place], [place] 15 years ago. My took him to the medical assembly today to be put down, so I just can't go home today." Negative for antecedent/coincident fevers, chills, diaphoresis, cough, wheeze, sore throat, hemoptysis, chest pains, palpitations, pleurisy, nausea, vomiting, diarrhea, abdominal pain, pelvic pain, hematemesis, hematochezia, melena, hematuria, dysuria, frequency, urgency, headaches, dizziness, lightheadedness, visual changes, hearing changes, syncope, travel history, sick contacts, or food/drug ingestions novel or new. All other review of systems are reported as negative by the patient on 06/01/2025. Physical Exam Constitutional: General: Comfortable, coherent, and cooperative. Not confused, obtunded, or lethargic. Patient speaks with regular darren, and in complete, fluent, and articulate 7-9 word sentences without pause, interruption, cough, or wheeze with O2 sat 98% on 3 liters/minute O2 via nasal cannula (05/30/2025, 8:40pm). O2 sat 97% on 1 liter/minute O2 via nasal cannula (05/31/2025, 7:40am). O2 sat 99% on 4 liters/minute O2 via nasal cannula (06/01/2025, 7:30pm). HEENT: Normocephalic, atraumatic. No nystagmus, gaze paresis, anisocoria, miosis, mydriasis, hyphema, scleral injection, conjunctivitis, or pterygium. No otorrhea or rhinorrhea. No pharyngeal erythema, edema, or discharge. Neck: Supple, no stridor, bruit, goiter, or hepato-jugular reflux. Jugular venous pressure is estimated to be 3 cm above the sternal angle of Roberto, which in turn, is 5 cm above the level of the right atrium; with jugular venous pressure estimated to be 8 cm, then, there is no jugular venous distention on 06/01/2025. Lymphatics: No cervical (anterior/posterior), supraclavicular, infraclavicular, axillary, epitrochlear, or inguinal adenopathy. Chest: Symmetric rise and fall with respirations. Non-tender to palpation. Lungs: Clear to auscultation and percussion. Heart: Regular rate and rhythm. S1 and S2 noted. No S3 or S4 summation gallop. No tripartite friction rub. Grade II/ early systolic murmur @ LLSB without radiation to the carotids, axilla, or back, and which remains invariant in regards to the respiratory cycle. Abdomen: Soft, non-tender, non-distended. No rebound, guarding, Mur phy's sign, or organomegaly. Bowel sounds auscultated in all 4 quadrants. Extremities: No clubbing, cyanosis, or edema. Skin: No decubitus ulcer or enanthem. Positive exanthem @ left knee with 3 cm circular region of denuded flesh with granulation tissue covering denuded region completely, with NO warmth, NO erythema on 06/01/2025, compared to 05/31/2025 exam; still NO induration, tenderness, crepitus, fluctuance, discharge (sanguineous, serous, suppurative), ulceration, malodor, or lymphangitic streaking, s/p fall down 13 steps at patient's home on 05/29/2025, 8:00am. Neuro: Awake and oriented in regards to person, place, time, and situation. DTR+. 5/5 motor strength in all 4 extremities, both proximally and distally. No myoclonus or tics or tremors. Genito-urinary: No urethral discharge. No puenets catheter. Results & Data Results & Data Vital Signs (Past 12 Hours) Vital Signs Temp Pulse Pulse Resp BP Pulse Ox O2 Del Method 06/01/25 19:30 Nasal Cannula 06/01/25 19:07 81 16 99 Nasal Cannula 06/01/25 19:00 37.0 C 73 30 H 178/88 H 99 Nasal Cannula 06/01/25 16:00 36.8 C 76 22 144/70 H 96 Nasal Cannula 06/01/25 11:47 76 06/01/25 11:36 99 Nasal Cannula 06/01/25 10:45 36.7 C 75 24 158/81 H O2 Flow Rate 06/01/25 19:30 4 06/01/25 19:07 3 06/01/25 19:00 2 06/01/25 16:00 2 06/01/25 11:47 06/01/25 11:36 2 06/01/25 10:45 Laboratory Results WBC 7.55, N50 L36 M13 E1 B1, Hb 9.5, MCV 87.3, MCHC 33.5, platelet 159 (05/29/2025, 9:50am). WBC 6.92, N84 L9 M6, Hb 8.8, MCV 87.4, MCHC 33.5, platelet 152 (05/30/2025, 6:26am). WBC 10.58, N81 L12 M6, Hb 7.8, MCV 87.0, MCHC 33.2, platelet 139 (05/31/2025, 5:40am). WBC 9.90, N83 L10 M4, Hb 8.3, MCV 89.3, MCHC 32.0, platelet 152 (06/01/2025, 6:34am). Na 140, K 3.3, BUN < 3, creatinine 1.60, glucose 101, Ca ionized 1.13 ( 025, 9:58am). Na 141, K 4.4, BUN 6, creatinine 0.81, glucose 204, Ca 8.6 (05/30/2025, 6:26am). Na 140, K 4.1, BUN 9, creatinine 0.72, glucose 191, Ca 8.3 (05/31/2025, 5:40am). Na 143, K 4.5, BUN 15, creatinine 0.87, glucose 185, Ca 8.6 (06/01/2025, 6:34am). Mg 1.1 mg/dL (05/29/2025, 9:50am). Mg 1.8 mg/dL (05/30/2025, 6:26am). Mg 1.8 mg/dL (05/31/2025, 5:40am). Mg 1.9 mg/dL (06/01/2025, 6:34am). Lactic acid #1 1.8 mmol/L (05/29/2025, 9:50am). Lactic acid #2 1.0 mmol/L (05/30/2025, 8:09am). Lactic acid #3 2.0 mmol/L (05/31/2025, 5:45am). Lactic acid #4 2.0 mmol/L (06/01/2025, 6:34am). Procalcitonin #1 0.10 ng/mL (05/29/2025, 9:50am). Procalcitonin #2 0.04 ng/mL (05/30/2025, 8:09am). Procalcitonin #3 < 0.02 ng/mL (05/31/2025, 5:40am). Procalcitonin #4 0.03 ng/mL (06/01/2025, 6:34am). Blood culture #1 (05/29/2025, 9:50am): MRSA Blood culture #2 (05/29/2025, 10:25am): MRSA Blood culture #3 (05/30/2025, 2:45pm): Blood culture #4 (05/30/2025, 2:45pm): Diagnostic Findings Portable CXR (05/29/2025, 9:41am): 1. No infiltrate, effusion, pulmonary vascular congestion, pneumothorax. 2. Cardiomegaly. (by my review). CT abd/pelvis without IV contrast (05/29/2025, 9:42am): 1. There is no evidence of solid organ injury in the abdomen or pelvis on this unenhanced examination. 2. The liver is mildly enlarged and steatotic. 3. Right-sided nephrolithiasis. 4. Coronary artery atherosclerosis. 5. 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 CT cervical spine without IV contrast (05/29/2025, 9:42am): 1. No acute cervical spine fracture or subluxation. CT chest without IV contrast (05/29/2025, 9:42am): 1. No acute traumatic findings in chest. CT brain without IV contrast (05/29/2025, 9:42am): 1. No acute bleed, mass, or midline shift. Left knee xray (05/29/2025, 10:17am). 1. Soft tissue swelling. 2. No acute fracture. PG Care Time/CCT Total # of Minutes Spent Total Time Spent with Patient: Total time spent is greater than 50% in coordination of care (as documented) at patient's floor/unit and/or counseling patient: Coding Level of Care Code 04585 SUB INP/OBS CARE 2/35MIN Diagnoses Sepsis due to cellulitis L03.90; A41.9 Staphylococcus aureus bacteremia with sepsis A41.01 Toxic metabolic encephalopathy G92.8 Hypomagnesemia E83.42 Fever of unknown origin R50.9 Hypokalemia E87.6
[2025-06-02 06:31] LABS: Hematocrit (blood only) 26.9 % (42.0-52.0); Hemoglobin 8.6 g/dl (14.0-18.0); Mean Corpuscular Hemoglobin 28.4 pg (25.0-34.0); Mean Corpuscular Volume 88.8 fL (80.0-100.0); Platelet Count 147 K/uL (130-400); RDW Standard Deviation 46.5 fL (36.4-46.3); Red Blood Count 3.03 M/uL (4.70-6.10); White Blood Count 11.88 K/ul (4.8-10.8)
[2025-06-02 07:03] LABS: Anion Gap 7.0 (3-11); Blood Urea Nitrogen 14.0 mg/dl (6-23); Calcium 8.6 mg/dl (8.6-10.3); Carbon Dioxide 29.0 mmol/L (21-32); Chloride 107.0 mmol/L (98-107); Creatinine Clr Calc Pharmacy 121.8 ml/min; Glucose 150.0 mg/dl (70-99(Fasting)); Magnesium 2.0 mg/dl (1.7-2.4); Potassium 4.0 mmol/L (3.5-5.1); Sodium 143.0 mmol/L (136-145)
[2025-06-02 07:51] LABS: Immature Granulocytes # (auto) 0.85 K/uL (0.01-0.20); Immature Granulocytes % (auto) 7.2 %; Ovalocytes 1+; Polychromasia 1+
[2025-06-02 10:32] LABS: Lipase 26.0 U/L (11-82)
[2025-06-02] MEDS: ACETAMINOPHEN 325 MG TAB PO PRN (16:22)
--- NOTE | 2025-06-02 20:13 | Hospitalist Progress Note ---
Date of Service June 02, 2025 Assessment & Plan (1) Sepsis due to cellulitis: Plan: Patient fell down 13 steps at his home on 05/29/2025, 8:00am, as patient announced to his that he was going to work on 05/29/2025, 8:00am, even though patient is unemployed. Patient subsequently developed a positive exanthem @ left knee with 3 cm circular region of denuded flesh with granulation tissue covering denuded region completely, with surrounding warmth, slight erythema, NO induration, tenderness, crepitus, fluctuance, discharge (sanguineous, serous, suppurative), ulceration, malodor, or lymphangitic streaking, consistent with cellulitis. Patient subsequently developed sepsis due to acute left knee cellulitis. cf., Blood culture #1 (05/29/2025, 9:50am): MRSA cf., Blood culture #2 (05/29/2025, 10:25am): MRSA cf., Blood culture #3 (05/30/2025, 2:45pm): cf., Blood culture #4 (05/30/2025, 2:45pm): Patient received cefepime 2g IV x 1 dose (05/29/2025, 10:30am) in [facility] ER. Patient received daptomycin 700mg IV daily x 2 doses (05/30/2025, 1:26am; 05/31/2025, 12:42am) in [facility] Med-Surg bd #[id number]. Patient subsequently was transitioned off daptomycin 700mg IV daily and started on linezolid 600mg PO bid (day #1 on 05/31/2025, 10:30am) with anticipated D/C home or to [facility] (if patient's insurance company approves patient for acute rehab @ [facility]) in the 06/04/2025 am, on linezolid 600mg PO bid for 12 more days, to complete a total of 14 days of antibiotic therapy, starting with the 05/30/2025, 2:45pm blood cultures #3 and #4, assuming that both blood cultures remain negative/normal. 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 (2) Staphylococcus aureus bacteremia with sepsis: Plan: Patient fell down 13 steps at his home on 05/29/2025, 8:00am, as patient announced to his that he was going to work on 05/29/2025, 8:00am, even though patient is unemployed. Patient subsequently developed a positive exanthem @ left knee with 3 cm circular region of denuded flesh with granulation tissue covering denuded region completely, with surrounding warmth, slight erythema, NO induration, tenderness, crepitus, fluctuance, discharge (sanguineous, serous, suppurative), ulceration, malodor, or lymphangitic streaking, consistent with cellulitis. Patient subsequently developed sepsis due to acute left knee cellulitis. cf., Blood culture #1 (05/29/2025, 9:50am): MRSA cf., Blood culture #2 (05/29/2025, 10:25am): MRSA cf., Blood culture #3 (05/30/2025, 2:45pm): cf., Blood culture #4 (05/30/2025, 2:45pm): Patient received cefepime 2g IV x 1 dose (05/29/2025, 10:30am) in [facility] ER. Patient received daptomycin 700mg IV daily x 2 doses (05/30/2025, 1:26am; 05/31/2025, 12:42am) in [facility] Med-Surg bd #[id number]. Patient subsequently was transitioned off daptomycin 700mg IV daily and started on linezolid 600mg PO bid (day #1 on 05/31/2025, 10:30am) with anticipated D/C home or to [facility] (if patient's insurance company approves patient for acute rehab @ [facility]) in the 06/04/2025 am, on linezolid 600mg PO bid for 12 more days, to complete a total of 14 days of antibiotic therapy, starting with the 05/30/2025, 2:45pm blood cultures #3 and #4, assuming that both blood cultures remain negative/normal. 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 (3) Toxic metabolic encephalopathy: Plan: Etiology of toxic metabolic encephalopathy was due to acute non-suppurative, non-bullous staphylococcal cellulitis of left knee with hematogenous dissemination (e.g., staphylococcal bacteremia). Subsequently, toxic metabolic encephalopathy RESOLVED rapidly after patient received cefepime 2g IV x 1 dose (05/29/2025, 10:30am) in [facility] ER, followed by daptomycin 700mg IV daily x 2 doses (05/30/2025, 1:26am; 05/31/2025, 12:42am) in [facility] Med-Surg bd #[id number]. Patient subsequently was transitioned off daptomycin 700mg IV daily and started on linezolid 600mg PO bid (day #1 on 05/31/2025, 10:30am) with anticipated D/C home or to [facility] (if patient's insurance company approves patient for acute rehab @ [facility]) in the 06/04/2025 am, on linezolid 600mg PO bid for 12 more days, to complete a total of 14 days of antibiotic therapy, starting with the 05/30/2025, 2:45pm blood cultures #3 and #4, assuming that both blood cultures remain negative/normal. (4) Hypomagnesemia: Plan: cf., Mg 1.1 mg/dL (05/29/2025, 9:50am). cf., Mg 1.8 mg/dL (05/30/2025, 6:26am). cf., Mg 1.8 mg/dL (05/31/2025, 5:40am). cf., Mg 1.9 mg/dL (06/01/2025, 6:34am). cf., Mg 2.0 mg/dL (06/02/2025, 6:15am). Etiology of acute hypomagnesemia remains unclear, but was probably due to decreased oral intake of magnesium-containing foods. Patient subsequently received magnesium sulfate 1g IV bid x 2 doses (05/29/2025, 12:52pm, 2:05pm), and magnesium oxide 400mg PO bid x 1 dose (05/29/2025, 8:55pm ), and acute hypomagnesemia RESOLVED. Patient subsequently received magnesium oxide 400mg PO bid x 2 doses (05/30/2025, 8:08am, 8:25pm). I will check repeat Mg level in the 06/03/2025 am for any recurrence of acute hypomagnesemia. (5) Fever of unknown origin: Plan: Due to sepsis, due to: (a) acute left knee non-suppurative, non-bullous staphylococcal cellulitis. (b) acute staphylococcal bacteremia. (6) Hypokalemia: Plan: cf., K 3.3 mmol/L (05/29/2025, 9:50am). cf., K 4.4 mmol/L (05/30/2025, 6:26am). cf., K 4.1 mmol/L (05/31/2025, 5:40am). cf., K 4.5 mmol/L (06/01/2025, 6:35am). cf., K 4.0 mmol/L (06/02/2025, 6:15am). Etiology of acute hypokalemia remains unclear, but was probably due to decreased oral intake of potassium-containing foods. Patient subsequently received KCl 40meq PO x 1 dose (05/29/2025, 11:20am), KCl 10meq IV x 1 dose (05/29/2025, 6:21pm), and acute hypokalemia RESOLVED. I will check repeat K level in the 06/03/2025 am for any recurrence of acute hypokalemia. Plan #Fever of unknown origin - Admit to PCU - Diabetic diet (may eat when more awake/alert) - VS per unit protocol - Obtain VBG d/t somnolence - Puentes catheter ordered to be inserted - Pt panscanned w/o evidence of traumatic fx/infectious source - CRP mildly elevated at 2, ESR and PCT WNL - No leukocytosis or shift on CBC - Fever reported at home 104F and in ED 38.9C - Blood cultures x2 sets obtained/pending - Given dose of IV Cefepime in ED - UA w/ reflex culture ordered - await results, if obvious source continue broad spectrum coverage and await sensitivities to tailor abx choice accordingly - If UA negative, LP to be ordered and consider ID consult - S/P 2L of plasmalyte in ED, defer further IVF at present - Stress dose Solu-Cortef 100mg IV x1 now and 50mg q6 #Frequent falls - Fall precautions - PT/OT eval and tx - Panscanned w/o evidence of traumatic injuries #Encephalopathy - metabolic vs. toxic - ?Related to potential infection vs medication effect from fentanyl given in ED - No witnessed seizure activity - VBG as noted above - PCU with end-tidal CO2 - Pending UA, consider MRI + LP #Hypotension - S/P 2L of IVF as noted above - Hold Bumex and Lisinopril - Metoprolol can be given with parameters #Hypokalemia and hypomagnesemia - Mag Sulfate 1g IVx2 doses given in ED - Increase oral mag ox to 400mg BID - Replace potassium - Repeat CMP + mag in am #Chronic Back Pain - Continue oxycodone and cymbalta #Seizure disorder - Continue lamictal, depakote, vimpat #Bipolar D/O/PTSD/MDD - Continue lithium, Seroquel, Trazodone, Abilify and Effexor #Diabetes Mellitus T2 - Continue Lantus 6u BID - SSI w/ CF 65 and CR 22 - AC and HS BSG checks - Diabetic diet ordered #CAD/DLD - Continue aspirin, plavix, metoprolol and Crestor #COPD/Chronic respiratory failure - Continue supplemental O2 via NC to maintain pulse ox ~92% - Continue neb/inhalers VTE ppx will be covered with Lovenox 40mg sq daily. AM labs have been ordered. Therapy eval as above. Plan has been d/w Dr. Carney who will also see and evaluate this patient. Further orders will be implemented as clinically warranted. Admission and Anticipated Discharge Date Admission Date: May 29, 2025 Subjective "Today is a bad day. I had to put my beloved 15 years old Min Pin (e.g., miniature Doberman Pinscher) down as he is wobbly and weak in the legs. I'm gonna miss him; I had him since he was a puppy in [place], [place] 15 years ago. My took him to the hairspring fabrication supervisor today to be put down, so I just can't go home today. I can't even stand up from the bed here in the hospital. I am weak." Review of Systems Constitutional: Positive for major depression (mild, no suicidal ideation) at having his beloved 15 years old Min Pin (e.g., miniature beramarilis Pinscher) down as he is wobbly and weak in the legs. I'm gonna miss him; I had him since he was a puppy in [place], [place] 15 years ago. My took him to the hairspring fabrication supervisor today to be put down, so I just can't go home today." Negative for antecedent/coincident fevers, chills, diaphoresis, cough, wheeze, sore throat, hemoptysis, chest pains, palpitations, pleurisy, nausea, vomiting, diarrhea, abdominal pain, pelvic pain, hematemesis, hematochezia, melena, hematuria, dysuria, frequency, urgency, headaches, dizziness, lightheadedness, visual changes, hearing changes, syncope, travel history, sick contacts, or food/drug ingestions novel or new. All other review of systems are reported as negative by the patient on 06/02/2025. Physical Exam Constitutional: General: Comfortable, coherent, and cooperative. Not confused, obtunded, or lethargic. Patient speaks with regular darren, and in complete, fluent, and articulate 7-9 word sentences without pause, interruption, cough, or wheeze with O2 sat 98% on 3 liters/minute O2 via nasal cannula (05/30/2025, 8:40pm). O2 sat 97% on 1 liter/minute O2 via nasal cannula (05/31/2025, 7:40am). O2 sat 99% on 4 liters/minute O2 via nasal cannula (06/01/2025, 7:30pm)(06/02/2025, 8:07pm). HEENT: Normocephalic, atraumatic. No nystagmus, gaze paresis, anisocoria, miosis, mydriasis, hyphema, scleral injection, conjunctivitis, or pterygium. No otorrhea or rhinorrhea. No pharyngeal erythema, edema, or discharge. Neck: Supple, no stridor, bruit, goiter, or hepato-jugular ref lux. Jugular venous pressure is estimated to be 3 cm above the sternal angle of Roberto, which in turn, is 5 cm above the level of the right atrium; with jugular venous pressure estimated to be 8 cm, then, there is no jugular venous distention on 06/02/2025. Lymphatics: No cervical (anterior/posterior), supraclavicular, infraclavicular, axillary, epitrochlear, or inguinal adenopathy. Chest: Symmetric rise and fall with respirations. Non-tender to palpation. Lungs: Clear to auscultation and percussion. Heart: Regular rate and rhythm. S1 and S2 noted. No S3 or S4 summation gallop. No tripartite friction rub. Grade II/ early systolic murmur @ LLSB without radiation to the carotids, axilla, or back, and which remains invariant in regards to the respiratory cycle. Abdomen: Soft, non-tender, non-distended. No rebound, guarding, Moore's sign, or organomegaly. Bowel sounds auscultated in all 4 quadrants. Extremities: No clubbing, cyanosis, or edema. Skin: No decubitus ulcer or enanthem. Positive exanthem @ left knee with 3 cm circular region of denuded flesh with granulation tissue covering denuded region completely, with NO warmth, NO erythema on 06/01/2025, compared to 05/31/2025 exam; still NO induration, tenderness, crepitus, fluctuance, discharge (sanguineous, serous, suppurative), ulceration, malodor, or lymphangitic streaking, s/p fall down 13 steps at patient's home on 05/29/2025, 8:00am. Neuro: Awake and oriented in regards to person, place, time, and situation. DTR+. 5/5 motor strength in all 4 extremities, both proximally and distally. No myoclonus or tics or tremors. Genito-urinary: No urethral discharge. No puentes catheter. Results & Data Results & Data Vital Signs (Past 12 Hours) Vital Signs Temp Pulse Resp BP Pulse Ox O2 Del Method O2 Flow Rate 06/02/25 20:07 15 99 Nasal Cannula 4 06/02/25 20:00 36.6 C 61 16 178/84 H 99 Nasal Cannula 4 06/02/25 12:32 Nasal Cannula 4 06/02/25 12:32 36.5 C 65 18 176/101 H 99 Nasal Cannula 4 06/02/25 10:48 Nasal Cannula 4 Laboratory Results WBC 7.55, N50 L36 M13 E1 B1, Hb 9.5, MCV 87.3, MCHC 33.5, platelet 159 (05/29/2025, 9:50am). WBC 6.92, N84 L9 M6, Hb 8.8, MCV 87.4, MCHC 33.5, platelet 152 (05/30/2025, 6:26am). WBC 10.58, N81 L12 M6, Hb 7.8, MCV 87.0, MCHC 33.2, platelet 139 (05/31/2025, 5:40am). WBC 9.90, N83 L10 M4, Hb 8.3, MCV 89.3, MCHC 32.0, platelet 152 (06/01/2025, 6:34am). WBC 11.88, N74 L12 M6, Hb 8.6, MCV 88.8, MCHC 32.0, platelet 147 (06/02/2025, 6:15am). Na 140, K 3.3, BUN < 3, creatinine 1.60, glucose 101, Ca ionized 1.13 (05/29/2025, 9:58am). Na 141, K 4.4, BUN 6, creatinine 0.81, glucose 204, Ca 8.6 (05/30/2025, 6:26am). Na 140, K 4.1, BUN 9, creatinine 0.72, glucose 191, Ca 8.3 (05/31/2025, 5:40am). Na 143, K 4.5, BUN 15, creatinine 0.87, glucose 185, Ca 8.6 (06/01/2025, 6:34am). Na 143, K 4.0, BUN 14, creatinine 0.82, glucose 150, Ca 8.6 (06/02/2025, 6:15am). Mg 1.1 mg/dL (05/29/2025, 9:50am). Mg 1.8 mg/dL (05/30/2025, 6:26am). Mg 1.8 mg/dL (05/31/2025, 5:40am). Mg 1.9 mg/dL (06/01/2025, 6:34am). Mg 2.0 mg/dL (06/02/2025, 6:15am). Lactic acid #1 1.8 mmol/L (05/29/2025, 9:50am). Lactic acid #2 1.0 mmol/L (05/30/2025, 8:09am). Lactic acid #3 2.0 mmol/L (05/31/2025, 5:45am). Lactic acid #4 2.0 mmol/L (06/01/2025, 6:34am). Lactic acid #5 2.3 mmol/L (06/02/2025, 6:15am). Lactic acid #6 1.9 mmol/L (, 10:16am). Procalcitonin #1 0.10 ng/mL (05/29/2025, 9:50am). Procalcitonin #2 0.04 ng/mL (05/30/2025, 8:09am). Procalcitonin #3 < 0.02 ng/mL (05/31/2025, 5:40am). Procalcitonin #4 0.03 ng/mL (06/01/2025, 6:34am). Procalcitonin #5 < 0.02 ng/mL (06/02/2025, 6:15am). Blood culture #1 (05/29/2025, 9:50am): MRSA Blood culture #2 (05/29/2025, 10:25am): MRSA Blood culture #3 (05/30/2025, 2:45pm): Blood culture #4 (05/30/2025, 2:45pm): Diagnostic Findings Portable CXR (05/29/2025, 9:41am): 1. No infiltrate, effusion, pulmonary vascular congestion, pneumothorax. 2. Cardiomegaly. (by my review). CT abd/pelvis without IV contrast (05/29/2025, 9:42am): 1. There is no evidence of solid organ injury in the abdomen or pelvis on this unenhanced examination. 2. The liver is mildly enlarged and steatotic. 3. Right-sided nephrolithiasis. 4. Coronary artery atherosclerosis. 5. 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 CT cervical spine without IV contrast (05/29/2025, 9:42am): 1. No acute cervical spine fracture or subluxation. CT chest without IV contrast (05/29/2025, 9:42am): 1. No acute traumatic findings in chest. CT brain without IV contrast (05/29/2025, 9:42am): 1. No acute bleed, mass, or midline shift. Left knee xray (05/29/2025, 10:17am). 1. Soft tissue swelling. 2. No acute fracture. PG Care Time/CCT Total # of Minutes Spent Total Time Spent with Patient: Total time spent is greater than 50% in coordination of care (as documented) at patient's floor/unit and/or counseling patient: Coding Level of Care Code 58298 SUB INP/OBS CARE 2/35MIN Diagnoses Sepsis due to cellulitis L03.90; A41.9 Staphylococcus aureus bacteremia with sepsis A41.01 Toxic metabolic encephalopathy G92.8 Hypomagnesemia E83.42 Fever of unknown origin R50.9 Hypokalemia E87.6
[2025-06-03 11:06] LABS: Hematocrit (blood only) 25.6 % (42.0-52.0); Hemoglobin 8.7 g/dl (14.0-18.0); Mean Corpuscular Hemoglobin 29.3 pg (25.0-34.0); Mean Corpuscular Volume 86.2 fL (80.0-100.0); Platelet Count 163 K/uL (130-400); RDW Standard Deviation 44.3 fL (36.4-46.3); Red Blood Count 2.97 M/uL (4.70-6.10); White Blood Count 14.32 K/ul (4.8-10.8)
[2025-06-03 11:18] LABS: Anion Gap 6.0 (3-11); Blood Urea Nitrogen 20.0 mg/dl (6-23); Calcium 8.6 mg/dl (8.6-10.3); Carbon Dioxide 30.0 mmol/L (21-32); Chloride 103.0 mmol/L (98-107); Creatinine Clr Calc Pharmacy 100.9 ml/min; Glucose 118.0 mg/dl (70-99(Fasting)); Potassium 4.2 mmol/L (3.5-5.1); Sodium 139.0 mmol/L (136-145)
[2025-06-03 11:28] LABS: Acanthocytes 1+; Immature Granulocytes # (auto) 0.96 K/uL (0.01-0.20); Immature Granulocytes % (auto) 6.7 %; Polychromasia 1+; Tear Drop Cells 1+
--- NOTE | 2025-06-03 15:31 | Palliative Care Progress Note ---
Date of Service June 03, 2025 Assessment & Plan (1) Palliative care by specialist: Plan: Palliative care will continue to follow for ongoing pain management and pt / family support. Pt will continue to follow with out patient palliative care clinic for ongoing pain management after discharge. (2) Back pain at L4-L5 level: (3) Generalized pain: Plan: Pt states that oral analgesia "does not last long enough", he shared that the OxrIr 15mg does relieve his pain, but wears off too quickly. We discussed that the OxyIR is ordered PRN q4h and he has been only asking for med 2-3x per day. Encouraged pt verbalizing to RN that he needs pain meds when pain level climbs above mild pain for more consistent coverage of pain. Pt agreeable. NO changes in plan at this time; pt not optimizing use of PRN medication as ordered. Palliative care will continue to follow for pain managment. (4) Therapeutic opioid-induced constipation (OIC): Plan: Discussed with pt the need for preventative bowel regime while taking opioid analgesia. Pt does not currently have issues with constipation, but will require daily preventative bowel regime. Should be dicharged on miralax and senna as preventative for bowel maintenance. Plan as above Admission and Anticipated Discharge Date Admission Date: May 29, 2025 Subjective Assessed pt at bedside. No acute events over weekend. Pt shared that he had a "horrible weekend" that his pain was "out of control" and that the pain medications are wearing off too quickly. Review of Systems Review of Systems: All systems reviewed & are unremarkable except as noted in Subjective Physical Exam Constitutional: no acute distress Respiratory: no respiratory distress and no labored breathing Neurologic: moves all extremities and awake Psychiatric: A+Ox3, euthymic affect Results & Data Vital Signs (Past 12 Hours) Vital Signs Temp Pulse Resp BP Pulse Ox O2 Del Method O2 Flow Rate 06/03/25 14:44 2 06/03/25 07:40 Nasal Cannula 2 06/03/25 07:40 37.1 C 68 18 154/71 H 98 Nasal Cannula 2 06/03/25 07:04 65 18 100 Nasal Cannula 4 Laboratory Results Abnormal lab results 06/02/25 06/02/25 06/03/25 Range/Units 16:40 20:33 07:38 WBC (4.8-10.8) K/ul RBC (4.70-6.10) M/uL Hgb (14.0-18.0) g/dl Hct (42.0-52.0) % MPV (9.4-12.4) fL Neut # (Auto) (1.40-6.50) K/uL [place] # (Auto) (0.11-0.59) K/uL Immature Gran # (Auto) (0.01-0.20) K/uL BUN/Creatinine Ratio (10-20) Glucose (70-99(Fasting)) mg/dl POC Glucose 151 H 195 H 149 H (70-99) mg/dl Lactate (0.4-2.0) mmol/L 06/03/25 06/03/25 06/03/25 Range/Units 10:43 10:49 11:49 WBC 14.32 H (4.8-10.8) K/ul RBC 2.97 L (4.70-6.10) M/uL Hgb 8.7 L (14.0-18.0) g/dl Hct 25.6 L (42.0-52.0) % MPV 9.0 L (9.4-12.4) fL Neut # (Auto) 10.55 H (1.40-6.50) K/uL [place] # (Auto) 1.22 H (0.11-0.59) K/uL Immature Gran # (Auto) 0.96 H (0.01-0.20) K/uL BUN/Creatinine Ratio 20.2 H (10-20) Glucose 118 H (70-99(Fasting)) mg/dl POC Glucose 117 H (70-99) mg/dl Lactate 3.1 H* (0.4-2.0) mmol/L Diagnostic Findings Chest X-Ray 05/29/25 09:41 XR chest 1V portable HISTORY: 54 years-old Male Trauma acute chest trauma COMPARISON: Chest CT same day TECHNIQUE: AP view of the chest FINDINGS: Cardiac silhouette is mildly enlarged. Electronic device projects over the left heart border. Mild subsegmental bibasilar atelectasis. No pneumothorax, pleural effusion or airspace consolidation. Left atrial appendage exclusion device. Degenerative changes of the shoulders and spine.. Chronic left clavicular fracture. No acute displaced rib fracture identified by radiography. IMPRESSION: Cardiomegaly without acute process. ACT 112: Negative or not required by law. The above report was generated using voice recognition software. It may contain grammatical, syntax or spelling errors. Electronically signed by: Bean Tolentino M.D. 05/29/2025 10:43 AM Abdomen/Pelvis CT 05/29/25 09:42 CT SCAN OF THE ABDOMEN AND PELVIS WITHOUT IV CONTRAST CLINICAL HISTORY: Trauma. Fall. Diffuse cazares. COMPARISON STUDY: Abdominal CT dated 05/25/2025. TECHNIQUE: CT scan of the abdomen and pelvis is performed from the lung bases to the proximal femora. Images are reviewed in the axial, sagittal, and coronal planes. IV contrast was not administered for this examination. Note that the examination was performed in significantly suboptimal fashion without IV contrast. A dose lowering technique was utilized adhering to the principles of ALARA. FINDINGS: Lung bases: The heart is normal in size noting trace pericardial effusion. There is coronary artery atherosclerosis. A left atrial appendage occlusion device is in place. There is a tiny calcified granuloma right lung base. The lung bases are otherwise clear noting dependent atelectasis. There is a small hiatal hernia. Liver: The unenhanced liver is enlarged, measuring 19.8 cm in length. Attenuation is diffusely diminished indicating mild steatosis. There is no intrahepatic biliary ductal dilatation. Gallbladder: Unremarkable. Spleen: Normal in size and attenuation. Pancreas: Unremarkable. Adrenal glands: Unremarkable. Kidneys: The unenhanced kidneys are normal in size and without hydronephrosis. There are punctate nonobstructing calculi in the right lower pole. No left renal calculi are identified and there is no ureteral stone. There is no evidence of contour deforming renal mass lesion. Abdominal vasculature: The abdominal aorta is normal in course and caliber noting moderate atherosclerotic calcification. Bowel: The small bowel and colon are normal in course and caliber. The appendix is well-visualized and normal. Peritoneum: There is no intraperitoneal free air or abdominal ascites. There is a small fat-containing umbilical hernia. Lymphadenopathy: None. Pelvic viscera: The bladder, prostate gland is diminutive and heterogeneous. The bladder wall appears thickened/trabeculated indicating chronic outlet obstruction. Skeletal structures: The lumbosacral spine, bony pelvis, and proximal femora appear intact. Mild lumbosacral spondylosis is observed. There is postsurgical change from laminectomy and posterior fusion at L5-S1. No lytic or blastic lesions are seen. 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 IMPRESSION: 1. There is no evidence of solid organ injury in the abdomen or pelvis on this unenhanced examination. 2. The liver is mildly enlarged and steatotic. 3. Right-sided nephrolithiasis. 4. Coronary artery atherosclerosis. 5. 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 6. Additional findings as above. ACT 112: Negative or not required by law. Electronically signed by: Galindo Mejia M.D. 05/29/2025 11:[address] 05/29/25 09:42 CT cervical spine wo con CLINICAL HISTORY: 54 years-old Male with Trauma. Acute neck, with dizziness status post fall COMPARISON: Head CT of same day, CT cervical spine 05/25/2025 TECHNIQUE: Multiple axial CT images of the cervical spine were obtained without contrast. A dose lowering technique was utilized adhering to the principles of ALARA. FINDINGS: No acute fracture or subluxation. Moderate intervertebral disc space narrowing with anterior bridging osteophytes at C4-C5. Mild to moderate multilevel facet arthrosis. Multilevel neural foraminal narrowing, suboptimally assessed by CT technique. The cervical soft tissues appear unremarkable. At CT dictated separately. The visualized lung apices appear clear. IMPRESSION: No acute cervical spine fracture or subluxation. ACT 112: Negative or not required by law. The above report was generated using voice recognition software. It may contain grammatical, syntax or spelling errors. Electronically signed by: Bean Tolentino M.D. 05/29/2025 11:[address] 05/29/25 09:42 CT OF THE CHEST WITHOUT IV CONTRAST CLINICAL HISTORY: trauma COMPARISON STUDY: Chest CT May 25, 2025. TECHNIQUE: Axial images of the chest were obtained without IV contrast. Images were reviewed in the axial, sagittal, and coronal planes. IV contrast was not administered for this examination. Automated exposure control was utilized for the study. A dose lowering technique was utilized adhering to the principles of ALARA. FINDINGS: Thoracic aorta is suboptimally assessed on unenhanced exam but no mediastinal hematoma is present. Cardiomegaly is again noted. Left atrial ap pendage occluder device is in place. Prominent subcarinal lymph nodes are unchanged. These are likely benign. There is no pericardial effusion. No pneumothorax or pleural effusion is present. Ground glass opacities favor atelectasis. There is no consolidation to suggest pneumonia. No definite pulmonary contusion. No acute rib or thoracic spine fractures are identified. Abdomen and pelvis CT will be reported separately. IMPRESSION: No acute traumatic findings within the chest. ACT 112: Negative or not required by law. Electronically signed by: Aditya Foley M.D. 05/29/2025 10:[address] 05/29/25 09:42 CT SCAN OF THE BRAIN WITHOUT IV CONTRAST CLINICAL HISTORY: Fall. COMPARISON STUDY: Head CT May 26, 2025. TECHNIQUE: Unenhanced axial CT scan of the brain was performed from the vertex to the skull base. A dose lowering technique was utilized adhering to the principles of ALARA. CT DOSE: 3810.42 mGy.cm FINDINGS: Brain parenchyma: No acute intracranial hemorrhage, midline shift or mass effect is present. Paul-white matter differentiation is preserved. There are no extra- axial fluid collections. There are no findings to suggest acute dural sinus thrombosis or acute territorial infarct. Posterior fossa arachnoid cyst is incidentally noted. Ventricles, sulci, cisterns: There is no hydrocephalus. The basal cisterns are patent. Calvarium: There are no calvarial fractures. Sinuses and mastoids: The visualized paranasal sinuses are clear. The mastoid air cells are well pneumatized. Orbits: The bony orbits are grossly intact. IMPRESSION: 1. No acute intracranial findings. 2. No calvarial fractures. ACT 112: Negative or not required by law. Electronically signed by: Aditya Foley M.D. 05/29/2025 10:39 AM Knee X-Ray 05/29/25 10:17 XR knee LT 3V HISTORY: 54 years-old Male fall, pain, abrasion acute left knee pain status post fall COMPARISON: None TECHNIQUE: 3 views of the left knee FINDINGS: Mild tricompartmental osteoarthritis. 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 Mild anteromedial soft tissue swelling. No acute fracture, dislocation or large joint effusion. IMPRESSION: Soft tissue swelling without acute fracture. ACT 112: Negative or not required by law. The above report was generated using voice recognition software. It may contain grammatical, syntax or spelling errors. Electronically signed by: Bean Tolentino M.D. 05/29/2025 11:01 AM Medications Administered Current Inpatient Medications Acetaminophen (Acetaminophen 325 Mg Tab) 650 mg PO Q4H PRN PRN Reason: Pain or Fever Stop: 06/28/25 17:00 Last Admin: 06/02/25 16:22 Dose: 650 mg Al Hydrox/Mg Hydrox/Simethicone (Aluminum/Magnesium Susp 30 Ml Udc) 15 ml PO Q4H PRN PRN Reason: Dyspepsia Stop: 06/28/25 17:00 Albuterol (Albuterol Hfa 8 Gm Inhaler) 2 puffs INH Q6H PRN PRN Reason: shortness of breath or wheezing Stop: 06/28/25 17:00 Albuterol (Albut/Ipratrop 3mg/0.5mg Neb 3 Ml Vial) 3 ml INH QID PRN; Protocol PRN Reason: wheezing Stop: 06/28/25 17:00 Aripiprazole (Aripiprazole 5 Mg Tab) 5 mg PO QAM [facility] Stop: 06/29/25 08:59 Last Admin: 06/03/25 08:41 Dose: 5 mg Aspirin (Aspirin 81 Mg Ectab) 81 mg PO HS [facility] Stop: 06/28/25 20:59 Last Admin: 06/02/25 19:54 Dose: 81 mg Budesonide (Budesonide 0.5 Mg/2 Ml Vial (Pulmicort)) 0.5 mg INH QPM [facility] Stop: 06/28/25 20:59 Last Admin: 06/02/25 20:07 Dose: 0.5 mg Clopidogrel Bisulfate (Clopidogrel Bisulfate 75 Mg Tab) 75 mg PO QPM [facility] Stop: 06/28/25 20:59 Last Admin: 06/02/25 19:56 Dose: 75 mg Desmopressin Acetate (Desmopressin Acetate 0.1 Mg Tab) 0.4 mg PO BID [facility] Stop: 06/28/25 20:59 Last Admin: 06/03/25 08:42 Dose: 0.4 mg Dextrose (Dextrose 50% 50 Ml Syringe) 25 - 50 ml IV UD PRN; Protocol PRN Reason: Hypoglycemia Protocol Stop: 06/28/25 17:00 Divalproex Sodium (Divalproex Delay Release 500 Mg Tab) 1,000 mg PO QAM [facility] Stop: 06/29/25 08:59 Last Admin: 06/03/25 08:40 Dose: 1,000 mg Duloxetine HCl (Duloxetine Hcl 60 Mg Cap) 60 mg PO QAM [facility] Stop: 06/29/25 08:59 Last Admin: 06/03/25 08:40 Dose: 60 mg Duloxetine HCl (Duloxetine Hcl 30 Mg Cap) 30 mg PO HS [facility] Stop: 06/28/25 20:59 Last Admin: 06/02/25 19:56 Dose: 30 mg Enoxaparin Sodium (Enoxaparin Inj 40 Mg/0.4 Ml Syr) 40 mg SQ QAM [facility] Stop: 06/29/25 08:59 Last Admin: 06/03/25 08:43 Dose: 40 mg Finasteride (Finasteride 5 Mg Tab) 5 mg PO DAILY [facility] Stop: 06/29/25 08:59 Last Admin: 06/03/25 08:41 Dose: 5 mg Formoterol Fumarate (Formoterol 20 Mcg/2 Ml Vial) 20 mcg INH BIDR [facility] Stop: 06/28/25 18:59 Last Admin: 06/03/25 07:03 Dose: 20 mcg Glucagon (Glucagon For Inj 1 Mg Vial) 1 mg SQ UD PRN; Protocol PRN Reason: Hypoglycemia Protocol Stop: 06/28/25 17:00 Glucose (Glucose 40% Gel 15 Gm Tube) 15 - 30 gm PO UD PRN; Protocol PRN Reason: Hypoglycemia Protocol Stop: 06/28/25 17:00 Glucose (Glucose 10 Tab/Tube) 4 - 8 tab PO UD PRN; Protocol PRN Reason: Hypoglycemia Protocol Stop: 06/28/25 17:00 Hydrocortisone Sodium (Succinate 50 mg/ Syringe) 1 mls @ 4 mls/min IV Q6H [facility] Stop: 06/28/25 20:59 Last Admin: 06/03/25 08:45 Dose: 4 mls/min Insulin Aspart (Insulin Aspart Per Unit Charge) 0 units SC ACHS [facility] Stop: 06/28/25 17:00 Last Admin: 06/03/25 12:57 Dose: 1 units Insulin Glargine (Lantus Per Unit Charge) 6 units SQ BID [facility] Stop: 06/28/25 20:59 Last Admin: 06/03/25 09:27 Dose: 6 units Lacosamide (Lacosamide 50 Mg Tablet) 150 mg PO BID [facility] Stop: 06/28/25 20:59 Last Admin: 06/03/25 09:36 Dose: 150 mg Levetiracetam (Levetiracetam 500 Mg Tab) 1,000 mg PO Q12H [facility] Stop: 06/28/25 20:59 Last Admin: 06/03/25 08:41 Dose: 1,000 mg Levothyroxine Sodium (Levothyroxine Sodium 150 Mcg Tablet) 150 mcg PO DAILYBB [facility] Stop: 06/29/25 06:29 Last Admin: 06/03/25 04:53 Dose: 150 mcg Linezolid (Linezolid 600 Mg Tab) 600 mg PO BID [facility] Stop: 06/11/25 21:01 Last Admin: 06/03/25 08:40 Dose: 600 mg [place] Carbonate ([place] Carbonate 300 Mg Tab) 300 mg PO BID [facility] Stop: 06/28/25 20:59 Last Admin: 06/03/25 08:44 Dose: 300 mg Lorazepam (Lorazepam 0.5 Mg Tab) 0.5 mg PO DAILY PRN PRN Reason: Seizure Activity Stop: 06/28/25 17:00 Magnesium Hydroxide (Magnesium Hydroxide Susp 30 Ml Udc) 30 ml PO Q12H PRN PRN Reason: Constipation Stop: 06/28/25 17:00 Magnesium Oxide (Magnesium Oxide 400 Mg Tab) 400 mg PO BID [facility] Stop: 06/28/25 20:59 Last Admin: 06/03/25 10:30 Dose: 400 mg Metoprolol Succinate (Metoprolol Succ 25mg Ext Rel Tab) 25 mg PO [facility] Stop: 06/28/25 20:59 Last Admin: 06/02/25 20:04 Dose: 25 mg Mirtazapine (Mirtazapine Tab 15 Mg Tab) 30 mg PO HS [facility] Stop: 06/28/25 20:59 Last Admin: 06/02/25 19:54 Dose: 30 mg Miscellaneous (Carbohydrates For Hypoglycemia ) 15 - 30 gm PO UD PRN PRN Reason: Hypoglycemia Protocol Stop: 06/28/25 17:00 Ondansetron HCl (Ondansetron Inj 2 Mg/Ml 2 Ml Vial) 4 mg IV Q6H PRN PRN Reason: Nausea Stop: 06/28/25 17:00 Oxycodone HCl (Oxycodone Hcl Ir 5 Mg Tab (Immediate Release)) 15 mg PO Q4H PRN PRN Reason: pain Stop: 06/12/25 17:00 Last Admin: 06/03/25 13:35 Dose: 15 mg Prazosin HCl (Prazosin Hcl 1 Mg Cap) 5 mg PO [facility] Stop: 06/28/25 20:59 Last Admin: 06/02/25 20:03 Dose: 5 mg Propranolol HCl (Propranolol Hcl 60 Mg [place]) 120 mg PO [facility] Stop: 06/28/25 20:59 Last Admin: 06/02/25 20:03 Dose: 120 mg Quetiapine Fumarate (Quetiapine Fumarate 50 Mg Tabcr) [facility] [place] Stop: 06/29/25 08:59 Last Admin: 06/03/25 08:44 Dose: 50 mg Rosuvastatin Calcium (Rosuvastatin Calcium 20 Mg Tab) 20 [facility] [place] Stop: 06/29/25 08:59 Last Admin: 06/03/25 08:44 Dose: 20 mg Trazodone HCl (Trazodone Hcl 100 Mg Tab) 100 mg PO [facility] Stop: 06/28/25 20:59 Last Admin: 06/02/25 19:55 Dose: 100 mg Umeclidinium Cable (Umeclidinium Cable 62.5mcg/Blister 7 Puffs/Inhaler) 1 puffs INH DAILY [facility] Stop: 06/29/25 08:59 Last Admin: 06/03/25 08:45 Dose: 1 puffs Venlafaxine HCl (Venlafaxine Hcl Xr 75 Mg Capxr) 75 [facility] [place] Stop: 06/29/25 08:59 Last Admin: 06/03/25 08:41 Dose: 75 mg Venlafaxine HCl (Venlafaxine Hcl Xr 150 Mg Capxr) 150 mg [facility] [place] Stop: 06/29/25 08:59 Last Admin: 06/03/25 08:43 Dose: 150 mg PG Care Time/CCT Total # of Minutes Spent Total Time Spent with Patient: Total time spent is greater than 50% in coordination of care (as documented) at patient's floor/unit and/or counseling patient: [place]oding [place] [address] SUB INP/OBS CARE 2/35MIN Patient Type Established History Problem Focused Exam Problem Focused Medical Decision Making Low Complexity Diagnoses Palliative care by specialist Z51.5 Back pain at L4-L5 level M54.50 Generalized pain R52 Therapeutic opioid-induced constipation (OIC) K59.03; [id number]
--- NOTE | 2025-06-03 19:20 | Hospitalist Progress Note ---
Date of Service June 03, 2025 Assessment & Plan (1) Sepsis due to cellulitis: Plan: Patient fell down 13 steps at his home on 05/29/2025, 8:00am, as patient announced to his that he was going to work on 05/29/2025, 8:00am, even though patient is unemployed. Patient subsequently developed a positive exanthem @ left knee with 3 cm circular region of denuded flesh with granulation tissue covering denuded region completely, with surrounding warmth, slight erythema, NO induration, tenderness, crepitus, fluctuance, discharge (sanguineous, serous, suppurative), ulceration, malodor, or lymphangitic streaking, consistent with cellulitis. Patient subsequently developed sepsis due to acute left knee cellulitis. cf., Blood culture #1 (05/29/2025, 9:50am): MRSA cf., Blood culture #2 (05/29/2025, 10:25am): MRSA cf., Blood culture #3 (05/30/2025, 2:45pm): cf., Blood culture #4 (05/30/2025, 2:45pm): Patient received cefepime 2g IV x 1 dose (05/29/2025, 10:30am) in [facility] ER. Patient received daptomycin 700mg IV daily x 2 doses (05/30/2025, 1:26am; 05/31/2025, 12:42am) in [facility] Med-Surg bd #E212-1. Patient subsequently was transitioned off daptomycin 700mg IV daily and started on linezolid 600mg PO bid (day #1 on 05/31/2025, 10:30am) with anticipated D/C home or to [facility] (if patient's insurance company approves patient for acute rehab @ [facility]) in the 06/04/2025 am, on linezolid 600mg PO bid for 12 more days, to complete a total of 14 days of antibiotic therapy, starting with the 05/30/2025, 2:45pm blood cultures #3 and #4, assuming that both blood cultures remain negative/normal. 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 (2) Staphylococcus aureus bacteremia with sepsis: Plan: Patient fell down 13 steps at his home on 05/29/2025, 8:00am, as patient announced to his that he was going to work on 05/29/2025, 8:00am, even though patient is unemployed. Patient subsequently developed a positive exanthem @ left knee with 3 cm circular region of denuded flesh with granulation tissue covering denuded region completely, with surrounding warmth, slight erythema, NO induration, tenderness, crepitus, fluctuance, discharge (sanguineous, serous, suppurative), ulceration, malodor, or lymphangitic streaking, consistent with cellulitis. Patient subsequently developed sepsis due to acute left knee cellulitis. cf., Blood culture #1 (05/29/2025, 9:50am): MRSA cf., Blood culture #2 (05/29/2025, 10:25am): MRSA cf., Blood culture #3 (05/30/2025, 2:45pm): cf., Blood culture #4 (05/30/2025, 2:45pm): Patient received cefepime 2g IV x 1 dose (05/29/2025, 10:30am) in [facility] ER. Patient received daptomycin 700mg IV daily x 2 doses (05/30/2025, 1:26am; 05/31/2025, 12:42am) in [facility] Med-Surg bd #E212-1. Patient subsequently was transitioned off daptomycin 700mg IV daily and started on linezolid 600mg PO bid (day #1 on 05/31/2025, 10:30am) with anticipated D/C home or to [facility] (if patient's insurance company approves patient for acute rehab @ [facility]) in the 06/04/2025 am, on linezolid 600mg PO bid for 12 more days, to complete a total of 14 days of antibiotic therapy, starting with the 05/30/2025, 2:45pm blood cultures #3 and #4, assuming that both blood cultures remain negative/normal. 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 (3) Toxic metabolic encephalopathy: Plan: Etiology of toxic metabolic encephalopathy was due to acute non-suppurative, non-bullous staphylococcal cellulitis of left knee with hematogenous dissemination (e.g., staphylococcal bacteremia). Subsequently, toxic metabolic encephalopathy RESOLVED rapidly after patient received cefepime 2g IV x 1 dose (05/29/2025, 10:30am) in [facility] ER, followed by daptomycin 700mg IV daily x 2 doses (05/30/2025, 1:26am; 05/31/2025, 12:42am) in [facility] Med-Surg bd #E212-1. Patient subsequently was transitioned off daptomycin 700mg IV daily and started on linezolid 600mg PO bid (day #1 on 05/31/2025, 10:30am) with anticipated D/C home or to [facility] (if patient's insurance company approves patient for acute rehab @ [facility]) in the 06/04/2025 am, on linezolid 600mg PO bid for 12 more days, to complete a total of 14 days of antibiotic therapy, starting with the 05/30/2025, 2:45pm blood cultures #3 and #4, assuming that both blood cultures remain negative/normal. (4) Hypomagnesemia: Plan: cf., Mg 1.1 mg/dL (05/29/2025, 9:50am). cf., Mg 1.8 mg/dL (05/30/2025, 6:26am). cf., Mg 1.8 mg/dL (05/31/2025, 5:40am). cf., Mg 1.9 mg/dL (06/01/2025, 6:34am). cf., Mg 2.0 mg/dL (06/02/2025, 6:15am). Etiology of acute hypomagnesemia remains unclear, but was probably due to decreased oral intake of magnesium-containing foods. Patient subsequently received magnesium sulfate 1g IV bid x 2 doses (05/29/2025, 12:52pm, 2:05pm), and magnesium oxide 400mg PO bid x 1 dose (05/29/2025, 8:55pm ), and acute hypomagnesemia RESOLVED. Patient subsequently received magnesium oxide 400mg PO bid x 2 doses (05/30/2025, 8:08am, 8:25pm). I will check repeat Mg level in the 06/04/2025 am for any recurrence of acute hypomagnesemia. (5) Fever of unknown origin: Plan: Due to sepsis, due to: (a) acute left knee non-suppurative, non-bullous staphylococcal cellulitis. (b) acute staphylococcal bacteremia. (6) Hypokalemia: Plan: cf., K 3.3 mmol/L (05/29/2025, 9:50am). cf., K 4.4 mmol/L (05/30/2025, 6:26am). cf., K 4.1 mmol/L (05/31/2025, 5:40am). cf., K 4.5 mmol/L (06/01/2025, 6:35am). cf., K 4.0 mmol/L (06/02/2025, 6:15am). cf., K 4.2 mmol/L (06/03/2025, 10:43am). Etiology of acute hypokalemia remains unclear, but was probably due to decreased oral intake of potassium-containing foods. Patient subsequently received KCl 40meq PO x 1 dose (05/29/2025, 11:20am), KCl 10meq IV x 1 dose (05/29/2025, 6:21pm), and acute hypokalemia RESOLVED. I will check repeat K level in the 06/04/2025 am for any recurrence of acute hypokalemia. Plan #Fever of unknown origin - Admit to PCU - Diabetic diet (may eat when more awake/alert) - VS per unit protocol - Obtain VBG d/t somnolence - Puentes catheter ordered to be inserted - Pt panscanned w/o evidence of traumatic fx/infectious source - CRP mildly elevated at 2, ESR and PCT WNL - No leukocytosis or shift on CBC - Fever reported at home 104F and in ED 38.9C - Blood cultures x2 sets obtained/pending - Given dose of IV Cefepime in ED - UA w/ reflex culture ordered - await results, if obvious source continue broad spectrum coverage and await sensitivities to tailor abx choice accordingly - If UA negative, LP to be ordered and consider ID consult - S/P 2L of plasmalyte in ED, defer further IVF at present - Stress dose Solu-Cortef 100mg IV x1 now and 50mg q6 #Frequent falls - Fall precautions - PT/OT eval and tx - Panscanned w/o evidence of traumatic injuries #Encephalopathy - metabolic vs. toxic - ?Related to potential infection vs medication effect from fentanyl given in ED - No witnessed seizure activity - VBG as noted above - PCU with end-tidal CO2 - Pending UA, consider MRI + LP #Hypotension - S/P 2L of IVF as noted above - Hold Bumex and Lisinopril - Metoprolol can be given with parameters #Hypokalemia and hypomagnesemia - Mag Sulfate 1g IVx2 doses given in ED - Increase oral mag ox to 400mg BID - Replace potassium - Repeat CMP + mag in am #Chronic Back Pain - Continue oxycodone and cymbalta #Seizure disorder - Continue lamictal, depakote, vimpat #Bipolar D/O/PTSD/MDD - Continue lithium, Seroquel, Trazodone, Abilify and Effexor #Diabetes Mellitus T2 - Continue Lantus 6u BID - SSI w/ CF 65 and CR 22 - AC and HS BSG checks - Diabetic diet ordered #CAD/DLD - Continue aspirin, plavix, metoprolol and Crestor #COPD/Chronic respiratory failure - Continue supplemental O2 via NC to maintain pulse ox ~92% - Continue neb/inhalers VTE ppx will be covered with Lovenox 40mg sq daily. AM labs have been ordered. Therapy eval as above. Plan has been d/w Dr. Carney who will also see and evaluate this patient. Further orders will be implemented as clinically warranted. Admission and Anticipated Discharge Date Admission Date: May 29, 2025 Subjective Assessed pt at bedside. No acute events over weekend. Pt shared that he had a "horrible weekend" that his pain was "out of control" and that the pain medications are wearing off too quickly. Review of Systems Constitutional: Positive for major depression (mild, no suicidal ideation) after his beloved 15 years old Min Pin (e.g., janes Marrero) on 06/02/2025. Negative for antecedent/coincident fevers, chills, diaphoresis, cough, wheeze, sore throat, hemoptysis, chest pains, palpitations, pleurisy, nausea, vomiting, diarrhea, abdominal pain, pelvic pain, hematemesis, hematochezia, melena, hematuria, dysuria, frequency, urgency, headaches, dizziness, lightheadedness, visual changes, hearing changes, syncope, travel history, sick contacts, or food/drug ingestions novel or new. All other review of systems are reported as negative by the patient on 06/03/2025. Physical Exam Constitutional: General: Comfortable, coherent, and cooperative. Not confused, obtunded, or lethargic. Patient speaks with regular darren, and in complete, fluent, and articulate 7-9 word sentences without pause, interruption, cough, or wheeze with O2 sat 98% on 3 liters/minute O2 via nasal cannula (05/30/2025, 8:40pm). O2 sat 97% on 1 liter/minute O2 via nasal cannula (05/31/2025, 7:40am). O2 sat 99% on 4 liters/minute O2 via nasal cannula (06/01/2025, 7:30pm)(06/02/2025, 8:07pm). O2 sat 97% on 2 liters/minute O2 via nasal cannula (06/03/2025, 4:21pm). HEENT: Normocephalic, atraumatic. No nystagmus, gaze paresis, anisocoria, miosis, mydriasis, hyphema, scleral injection, conjunctivitis, or pterygium. No otorrhea or rhinorrhea. No pharyngeal erythema, edema, or discharge. Neck: Supple, no stridor, bruit, goiter, or hepato-jugular reflux. Jugular venous pressure is estimated to be 3 cm above the sternal angle of Roberto, which in turn, is 5 cm above the level of the right atrium; with jugular venous pressure estimated to be 8 cm, then, there is no jugular venous distention on 06/03/2025. Lymphatics: No cervical (anterior/posterior), supraclavicular, infraclavicular, axillary, epitrochlear, or inguinal adenopathy. Chest: Symmetric rise and fall with respirations. Non-tender to palpation. Lungs: Clear to auscultation and percussion. Heart: Regular rate and rhythm. S1 and S2 noted. No S3 or S4 summation gallop. No tripartite friction rub. Grade II/ early systolic murmur @ LLSB without radiation to the carotids, axilla, or back, and which remains invariant in regards to the respiratory cycle. Abdomen: Soft, non-tender, non-distended. No rebound, guarding, Moore's sign, or organomegaly. Bowel sounds auscultated in all 4 quadrants. Extremities: No clubbing, cyanosis, or edema. Skin: No decubitus ulcer or enanthem. Positive exanthem @ left knee with 3 cm circular region of denuded flesh with granulation tissue covering denuded region completely, with NO warmth, NO erythema on 06/01/2025 - 0 06/03/2025 exams, compared to 05/31/2025 exam; still NO induration, tenderness, crepitus, fluctuance, discharge (sanguineous, serous, suppurative), ulceration, malodor, or lymphangitic streaking, s/p fall down 13 steps at patient's home on 05/29/2025, 8:00am. Neuro: Awake and oriented in regards to person, place, time, and situation. DTR+. 5/5 motor strength in all 4 extremities, both proximally and distally. No myoclonus or tics or tremors. Genito-urinary: No urethral discharge. No puentes catheter. Results & Data Results & Data Vital Signs (Past 12 Hours) Vital Signs Temp Pulse Resp BP Pulse Ox O2 Del Method O2 Flow Rate 06/03/25 16:21 68 18 159/89 H 97 Nasal Cannula 2 06/03/25 14:44 2 06/03/25 07:40 Nasal Cannula 2 06/03/25 07:40 37.1 C 68 18 154/71 H 98 Nasal Cannula 2 Laboratory Results WBC 7.55, N50 L36 M13 E1 B1, Hb 9.5, MCV 87.3, MCHC 33.5, platelet 159 (05/29/2025, 9:50am). WBC 6.92, N84 L9 M6, Hb 8.8, MCV 87.4, MCHC 33.5, platelet 152 (05/30/2025, 6:26am). WBC 10.58, N81 L12 M6, Hb 7.8, MCV 87.0, MCHC 33.2, platelet 139 (05/31/2025, 5:40am). WBC 9.90, N83 L10 M4, Hb 8.3, MCV 89.3, MCHC 32.0, platelet 152 (06/01/2025, 6:34am). WBC 11.88, N74 L12 M6, Hb 8.6, MCV 88.8, MCHC 32.0, platelet 147 (06/02/2025, 6:15am). WBC 14.32, N74 L11 M9, Hb 8.7, MCV 86.2, MCHC 34.0, platelet 163 (06/03/2025, 10:43am). Na 140, K 3.3, BUN < 3, creatinine 1.60, glucose 101, Ca ionized 1.13 (05/29/2025, 9:58am). Na 141, K 4.4, BUN 6, creatinine 0.81, glucose 204, Ca 8.6 (05/30/2025, 6:26am). Na 140, K 4.1, BUN 9, creatinine 0.72, glucose 191, Ca 8.3 (05/31/2025, 5:40am). Na 143, K 4.5, BUN 15, creatinine 0.87, glucose 185, Ca 8.6 (06/01/2025, 6:34am). Na 143, K 4.0, BUN 14, creatinine 0.82, glucose 150, Ca 8.6 (06/02/2025, 6:15am). Na 139, K 4.2, BUN 20, creatinine 0.99, glucose 118, Ca 8.6 (06/03/2025, 10:43am). Mg 1.1 mg/dL (05/29/2025, 9:50am). Mg 1.8 mg/dL (05/30/2025, 6:26am). Mg 1.8 mg/dL (05/31/2025, 5:40am). Mg 1.9 mg/dL (06/01/2025, 6:34am). Mg 2.0 mg/dL (06/02/2025, 6:15am). Lactic acid #1 1.8 mmol/L (05/29/2025, 9:50am). Lactic acid #2 1.0 mmol/L (05/30/2025, 8:09am). Lactic acid #3 2.0 mmol/L (05/31/2025, 5:45am). Lactic acid #4 2.0 mmol/L (06/01/2025, 6:34am). Lactic acid #5 2.3 mmol/L (06/02/2025, 6:15am). Lactic acid #6 1.9 mmol/L (06/02/2025, 10:16am). Lactic acid #7 3.1 mmol/L (06/03/2025, 10:49am). Procalcitonin #1 0.10 ng/mL (05/29/2025, 9:50am). Procalcitonin #2 0.04 ng/mL (05/30/2025, 8:09am). Procalcitonin #3 < 0.02 ng/mL (05/31/2025, 5:40am). Procalcitonin #4 0.03 ng/mL (06/01/2025, 6:34am). Procalcitonin #5 < 0.02 ng/mL (06/02/2025, 6:15am). Procalcitonin #6 < 0.02 ng/mL (06/03/2025, 10:43am). Blood culture #1 (05/29/2025, 9:50am): MRSA Blood culture #2 (05/29/2025, 10:25am): MRSA Blood culture #3 (05/30/2025, 2:45pm): Blood culture #4 (05/30/2025, 2:45pm): Diagnostic Findings Portable CXR (05/29/2025, 9:41am): 1. No infiltrate, effusion, pulmonary vascular congestion, pneumothorax. 2. Cardiomegaly. (by my review). CT abd/pelvis without IV contrast (05/29/2025, 9:42am): 1. There is no evidence of solid organ injury in the abdomen or pelvis on this unenhanced examination. 2. The liver is mildly enlarged and steatotic. 3. Right-sided nephrolithiasis. 4. Coronary artery atherosclerosis. 5. 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 CT cervical spine without IV contrast (05/29/2025, 9:42am): 1. No acute cervical spine fracture or subluxation. CT chest without IV contrast (05/29/2025, 9:42am): 1. No acute traumatic findings in chest. CT brain without IV contrast (05/29/2025, 9:42am): 1. No acute bleed, mass, or midline shift. Left knee xray (05/29/2025, 10:17am). 1. Soft tissue swelling. 2. No acute fracture. PG Care Time/CCT Total # of Minutes Spent Total Time Spent with Patient: Total time spent is greater than 50% in coordination of care (as documented) at patient's floor/unit and/or counseling patient: Coding Level of Care Code 79910 SUB INP/OBS CARE 2/35MIN Diagnoses Sepsis due to cellulitis L03.90; A41.9 Staphylococcus aureus bacteremia with sepsis A41.01 Toxic metabolic encephalopathy G92.8 Hypomagnesemia E83.42 Fever of unknown origin R50.9 Hypokalemia E87.6
[2025-06-03] MEDS: LACTATED RINGER'S 500 ML IV ONE (22:54)
[2025-06-04 06:03] LABS: Hematocrit (blood only) 26.0 % (42.0-52.0); Hemoglobin 8.5 g/dl (14.0-18.0); Mean Corpuscular Hemoglobin 28.4 pg (25.0-34.0); Mean Corpuscular Volume 87.0 fL (80.0-100.0); Platelet Count 136 K/uL (130-400); RDW Standard Deviation 44.6 fL (36.4-46.3); Red Blood Count 2.99 M/uL (4.70-6.10); White Blood Count 11.96 K/ul (4.8-10.8)
[2025-06-04 06:19] LABS: Anion Gap 6.0 (3-11); Blood Urea Nitrogen 21.0 mg/dl (6-23); Calcium 8.4 mg/dl (8.6-10.3); Carbon Dioxide 32.0 mmol/L (21-32); Chloride 102.0 mmol/L (98-107); Creatinine Clr Calc Pharmacy 103.0 ml/min; Glucose 150.0 mg/dl (70-99(Fasting)); Magnesium 2.1 mg/dl (1.7-2.4); Potassium 4.3 mmol/L (3.5-5.1); Sodium 140.0 mmol/L (136-145)
[2025-06-04 06:52] LABS: Immature Granulocytes # (auto) 0.91 K/uL (0.01-0.20); Immature Granulocytes % (auto) 7.6 %; Polychromasia 1+
--- NOTE | 2025-06-04 16:25 | Hospitalist Progress Note ---
Date of Service June 04, 2025 Assessment & Plan (1) Sepsis due to cellulitis: Plan: Patient fell down 13 steps at his home on 05/29/2025, 8:00am, as patient announced to his that he was going to work on 05/29/2025, 8:00am, even though patient is unemployed. Patient subsequently developed a positive exanthem @ left knee with 3 cm circular region of denuded flesh with granulation tissue covering denuded region completely, with surrounding warmth, slight erythema, NO induration, tenderness, crepitus, fluctuance, discharge (sanguineous, serous, suppurative), ulceration, malodor, or lymphangitic streaking, consistent with cellulitis. Patient subsequently developed sepsis due to acute left knee cellulitis. cf., Blood culture #1 (05/29/2025, 9:50am): MRSA cf., Blood culture #2 (05/29/2025, 10:25am): MRSA cf., Blood culture #3 (05/30/2025, 2:45pm): cf., Blood culture #4 (05/30/2025, 2:45pm): Patient received cefepime 2g IV x 1 dose (05/29/2025, 10:30am) in [facility] ER. Patient received daptomycin 700mg IV daily x 2 doses (05/30/2025, 1:26am; 05/31/2025, 12:42am) in [facility] Med-Surg bd #E212-1. Patient subsequently was transitioned off daptomycin 700mg IV daily and started on linezolid 600mg PO bid (day #1 on 05/31/2025, 10:30am) with anticipated D/C home or to [facility] (if patient's insurance company approves patient for acute rehab @ [facility]) in the 06/04/2025 am, on linezolid 600mg PO bid for 12 more days, to complete a total of 14 days of antibiotic therapy, starting with the 05/30/2025, 2:45pm blood cultures #3 and #4, assuming that both blood cultures remain negative/normal. 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 (2) Staphylococcus aureus bacteremia with sepsis: Plan: Patient fell down 13 steps at his home on 05/29/2025, 8:00am, as patient announced to his that he was going to work on 05/29/2025, 8:00am, even though patient is unemployed. Patient subsequently developed a positive exanthem @ left knee with 3 cm circular region of denuded flesh with granulation tissue covering denuded region completely, with surrounding warmth, slight erythema, NO induration, tenderness, crepitus, fluctuance, discharge (sanguineous, serous, suppurative), ulceration, malodor, or lymphangitic streaking, consistent with cellulitis. Patient subsequently developed sepsis due to acute left knee cellulitis. cf., Blood culture #1 (05/29/2025, 9:50am): MRSA cf., Blood culture #2 (05/29/2025, 10:25am): MRSA cf., Blood culture #3 (05/30/2025, 2:45pm): cf., Blood culture #4 (05/30/2025, 2:45pm): Patient received cefepime 2g IV x 1 dose (05/29/2025, 10:30am) in [facility] ER. Patient received daptomycin 700mg IV daily x 2 doses (05/30/2025, 1:26am; 05/31/2025, 12:42am) in [facility] Med-Surg bd #E212-1. Patient subsequently was transitioned off daptomycin 700mg IV daily and started on linezolid 600mg PO bid (day #1 on 05/31/2025, 10:30am) with anticipated D/C home or to [facility] (if patient's insurance company approves patient for acute rehab @ [facility]) in the 06/04/2025 am, on linezolid 600mg PO bid for 12 more days, to complete a total of 14 days of antibiotic therapy, starting with the 05/30/2025, 2:45pm blood cultures #3 and #4, assuming that both blood cultures remain negative/normal. 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 (3) Toxic metabolic encephalopathy: Plan: Etiology of toxic metabolic encephalopathy was due to acute non-suppurative, non-bullous staphylococcal cellulitis of left knee with hematogenous dissemination (e.g., staphylococcal bacteremia). Subsequently, toxic metabolic encephalopathy RESOLVED rapidly after patient received cefepime 2g IV x 1 dose (05/29/2025, 10:30am) in [facility] ER, followed by daptomycin 700mg IV daily x 2 doses (05/30/2025, 1:26am; 05/31/2025, 12:42am) in [facility] Med-Surg bd #E212-1. Patient subsequently was transitioned off daptomycin 700mg IV daily and started on linezolid 600mg PO bid (day #1 on 05/31/2025, 10:30am) with anticipated D/C home or to [facility] (if patient's insurance company approves patient for acute rehab @ [facility]) in the 06/04/2025 am, on linezolid 600mg PO bid for 12 more days, to complete a total of 14 days of antibiotic therapy, starting with the 05/30/2025, 2:45pm blood cultures #3 and #4, assuming that both blood cultures remain negative/normal. (4) Hypomagnesemia: Plan: cf., Mg 1.1 mg/dL (05/29/2025, 9:50am). cf., Mg 1.8 mg/dL (05/30/2025, 6:26am). cf., Mg 1.8 mg/dL (05/31/2025, 5:40am). cf., Mg 1.9 mg/dL (06/01/2025, 6:34am). cf., Mg 2.0 mg/dL (06/02/2025, 6:15am). cf., Mg 2.1 mg/dL (06/04/2025, 5:41am). Etiology of acute hypomagnesemia remains unclear, but was probably due to decreased oral intake of magnesium-containing foods. Patient subsequently received magnesium sulfate 1g IV bid x 2 doses (05/29/2025, 12:52pm, 2:05pm), and magnesium oxide 400mg PO bid x 1 dose (05/29/2025, 8:55pm), and acute hypomagnesemia RESOLVED. Patient subsequently received magnesium oxide 400mg PO bid x 2 doses (05/30/2025, 8:08am, 8:25pm). I will check repeat Mg level in the 06/05/2025 am for any recurrence of acute hypomagnesemia. (5) Fever of unknown origin: Plan: Due to sepsis, due to: (a) acute left knee non-suppurative, non-bullous staphylococcal cellulitis. (b) acute staphylococcal bacteremia. (6) Hypokalemia: Plan: cf., K 3.3 mmol/L (05/29/2025, 9:50am). cf., K 4.4 mmol/L (05/30/2025, 6:26am). cf., K 4.1 mmol/L (05/31/2025, 5:40am). cf., K 4.5 mmol/L (06/01/2025, 6:35am). cf., K 4.0 mmol/L (06/02/2025, 6:15am). cf., K 4.2 mmol/L (06/03/2025, 10:43am). cf., K 4.3 mmol/L (06/04/2025, 5:41am). Etiology of acute hypokalemia remains unclear, but was probably due to decreased oral intake of potassium-containing foods. Patient subsequently received KCl 40meq PO x 1 dose (05/29/2025, 11:20am), KCl 10meq IV x 1 dose (05/29/2025, 6:21pm), and acute hypokalemia RESOLVED. I will check repeat K level in the 06/05/2025 am for any recurrence of acute hypokalemia. Plan #Fever of unknown origin - Admit to PCU - Diabetic diet (may eat when more awake/alert) - VS per unit protocol - Obtain VBG d/t somnolence - Puentes catheter ordered to be inserted - Pt panscanned w/o evidence of traumatic fx/infectious source - CRP mildly elevated at 2, ESR and PCT WNL - No leukocytosis or shift on CBC - Fever reported at home 104F and in ED 38.9C - Blood cultures x2 sets obtained/pending - Given dose of IV Cefepime in ED - UA w/ reflex culture ordered - await results, if obvious source continue broad spectrum coverage and await sensitivities to tailor abx choice accordingly - If UA negative, LP to be ordered and consider ID consult - S/P 2L of plasmalyte in ED, defer further IVF at present - Stress dose Solu-Cortef 100mg IV x1 now and 50mg q6 #Frequent falls - Fall precautions - PT/OT eval and tx - Panscanned w/o evidence of traumatic injuries #Encephalopathy - metabolic vs. toxic - ?Related to potential infection vs medication effect from fentanyl given in ED - No witnessed seizure activity - VBG as noted above - PCU with end-tidal CO2 - Pending UA, consider MRI + LP #Hypotension - S/P 2L of IVF as noted above - Hold Bumex and Lisinopril - Metoprolol can be given with parameters #Hypokalemia and hypomagnesemia - Mag Sulfate 1g IVx2 doses given in ED - Increase oral mag ox to 400mg BID - Replace potassium - Repeat CMP + mag in am #Chronic Back Pain - Continue oxycodone and cymbalta #Seizure disorder - Continue lamictal, depakote, vimpat #Bipolar D/O/PTSD/MDD - Continue lithium, Seroquel, Trazodone, Abilify and Effexor #Diabetes Mellitus T2 - Continue Lantus 6u BID - SSI w/ CF 65 and CR 22 - AC and HS BSG checks - Diabetic diet ordered #CAD/DLD - Continue aspirin, plavix, metoprolol and Crestor #COPD/Chronic respiratory failure - Continue supplemental O2 via NC to maintain pulse ox ~92% - Continue neb/inhalers VTE ppx will be covered with Lovenox 40mg sq daily. AM labs have been ordered. Therapy eval as above. Plan has been d/w Dr. Carney who will also see and evaluate this patient. Further orders will be implemented as clinically warranted. Admission and Anticipated Discharge Date Admission Date: May 29, 2025 Subjective "I am still sad. I lost my best friend (e.g., beloved 15 years old Min Pin (e.g., janes Marrero) on 06/02/2025 at patient's home while patient remains in [facility] Med-Surg bed #E312-1. Review of Systems Constitutional: Positive for major depression (mild, no suicidal ideation) after his beloved 15 years old Saleem Beck (e.g., janes Marrero) on 06/02/2025 at patient's home while patient remains in [facility] Med-Surg bed #E312-1. Negative for antecedent/coincident fevers, chills, diaphoresis, cough, wheeze, sore throat, hemoptysis, chest pains, palpitations, pleurisy, nausea, vomiting, diarrhea, abdominal pain, pelvic pain, hematemesis, hematochezia, melena, hematuria, dysuria, frequency, urgency, headaches, dizziness, lightheadedness, visual changes, hearing changes, syncope, travel history, sick contacts, or food/drug ingestions novel or new. All other review of systems are reported as negative by the patient on 06/04/2025. Physical Exam Constitutional: General: Comfortable, coherent, and cooperative. Not confused, obtunded, or lethargic. Patient speaks with regular darren, and in complete, fluent, and articulate 7-9 word sentences without pause, interruption, cough, or wheeze with O2 sat 98% on 3 liters/minute O2 via nasal cannula (05/30/2025, 8:40pm). O2 sat 97% on 1 liter/minute O2 via nasal cannula (05/31/2025, 7:40am). O2 sat 99% on 4 liters/minute O2 via nasal cannula (06/01/2025, 7:30pm)(06/02/2025, 8:07pm). O2 sat 97% on 2 liters/minute O2 via nasal cannula (06/03/2025, 4:21pm). O2 sat 99% on 2 liters/minute O2 via nasal cannula (06/04/2025, 3:39pm). HEENT: Normocephalic, atraumatic. No nystagmus, gaze paresis, anisocoria, miosis, mydriasis, hyphema, scleral injection, conjunctivitis, or pterygium. No otorrhea or rhinorrhea. No pharyngeal erythema, edema, or discharge. Neck: Supple, no stridor, bruit, goiter, or hepato-jugular reflux. Jugular venous pressure is estimated to be 3 cm above the sternal angle of Roberto, which in turn, is 5 cm above the level of the right atrium; with jugular venous pressure estimated to be 8 cm, then, there is no jugular venous distention on 06/04/2025. Lymphatics: No cervical (anterior/posterior), supraclavicular, infraclavicular, axillary, epitrochlear, or inguinal adenopathy. Chest: Symmetric rise and fall with respirations. Non-tender to palpation. Lungs: Clear to auscultation and percussion. Heart: Regular rate and rhythm. S1 and S2 noted. No S3 or S4 summation gallop. No tripartite friction rub. Grade II/ early systolic murmur @ LLSB without radiation to the carotids, axilla, or back, and which remains invariant in regards to the respiratory cycle. Abdomen: Soft, non-tender, non-distended. No rebound, guarding, Moore's sign, or organomegaly. Bowel sounds auscultated in all 4 quadrants. Extremities: No clubbing, cyanosis, or edema. Skin: No decubitus ulcer or enanthem. Positive exanthem @ left knee with 3 cm circular region of denuded flesh with granulation tissue covering denuded region completely, with NO warmth, NO erythema on 06/01/2025 - 06/04/2025 exams, compared to 05/31/2025 exam; still NO induration, tenderness, crepitus, fluctuance, discharge (sanguineous, serous, suppurative), ulceration, malodor, or lymphangitic streaking, s/p fall down 13 steps at patient's home on 05/29/2025, 8:00am. Neuro: Awake and oriented in regards to person, place, time, and situation. DTR+. 5/5 motor strength in all 4 extremities, both proximally and distally. No myoclonus or tics or tremors. Genito-urinary: No urethral discharge. No puentes catheter. Results & Data Results & Data Vital Signs (Past 12 Hours) Vital Signs Temp Pulse Pulse Resp BP BP Pulse Ox 06/04/25 15:39 37.1 C 62 16 176/97 H 99 06/04/25 09:48 58 L 183/93 H 99 06/04/25 07:11 37 C 61 180/95 H 100 06/04/25 07:03 74 16 98 O2 Del Method O2 Flow Rate 06/04/25 15:39 Nasal Cannula 2 06/04/25 09:48 Nasal Cannula 2 06/04/25 07:11 Nasal Cannula 2 06/04/25 07:03 Nasal Cannula 2 Laboratory Results WBC 7.55, N50 L36 M13 E1 B1, Hb 9.5, MCV 87.3, MCHC 33.5, platelet 159 (05/29/2025, 9:50am). WBC 6.92, N84 L9 M6, Hb 8.8, MCV 87.4, MCHC 33.5, platelet 152 (05/30/2025, 6:26am). WBC 10.58, N81 L12 M6, Hb 7.8, MCV 87.0, MCHC 33.2, platelet 139 (05/31/2025, 5:40am). WBC 9.90, N83 L10 M4, Hb 8.3, MCV 89.3, MCHC 32.0, platelet 152 (06/01/2025, 6:34am). WBC 11.88, N74 L12 M6, Hb 8.6, MCV 88.8, MCHC 32.0, platelet 147 (06/02/2025, 6:15am). WBC 14.32, N74 L11 M9, Hb 8.7, MCV 86.2, MCHC 34.0, platelet 163 (06/03/2025, 10:43am). WBC 11.96, N75 L 9 M8, Hb 8.5, MCV 87.0, MCHC 32.7, platelet 136 (06/04/2025, 5:41am). Na 140, K 3.3, BUN < 3, creatinine 1.60, glucose 101, Ca ionized 1.13 (05/29/2025, 9:58am). Na 141, K 4.4, BUN 6, creatinine 0.81, glucose 204, Ca 8.6 (05/30/2025, 6:26am). Na 140, K 4.1, BUN 9, creatinine 0.72, glucose 191, Ca 8.3 (05/31/2025, 5:40am). Na 143, K 4.5, BUN 15, creatinine 0.87, glucose 185, Ca 8.6 (06/01/2025, 6:34am). Na 143, K 4.0, BUN 14, creatinine 0.82, glucose 150, Ca 8.6 (06/02/2025, 6:15am). Na 139, K 4.2, BUN 20, creatinine 0.99, glucose 118, Ca 8.6 (06/03/2025, 10:43am). Na 140, K 4.3, BUN 21, creatinine 0.97, glucose 150, Ca 8.4 (06/04/2025, 5:41am). Mg 1.1 mg/dL (05/29/2025, 9:50am). Mg 1.8 mg/dL (05/30/2025, 6:26am). Mg 1.8 mg/dL (05/31/2025, 5:40am). Mg 1.9 mg/dL (06/01/2025, 6:34am). Mg 2.0 mg/dL (06/02/2025, 6:15am). Mg 2.1 mg/dL (06/04/2025, 5:41am). Lactic acid #1 1.8 mmol/L (05/29/2025, 9:50am). Lactic acid #2 1.0 mmol/L (05/30/2025, 8:09am). Lactic acid #3 2.0 mmol/L (05/31/2025, 5:45am). Lactic acid #4 2.0 mmol/L (06/01/2025, 6:34am). Lactic acid #5 2.3 mmol/L (06/02/2025, 6:15am). Lactic acid #6 1.9 mmol/L (06/02/2025, 10:16am). Lactic acid #7 3.1 mmol/L (06/03/2025, 10:49am). Lactic acid #8 2.0 mmol/L (06/04/2025, 5:45am). Procalcitonin #1 0.10 ng/mL (05/29/2025, 9:50am). Procalcitonin #2 0.04 ng/mL (05/30/2025, 8:09am). Procalcitonin #3 < 0.02 ng/mL (05/31/2025, 5:40am). Procalcitonin #4 0.03 ng/mL (06/01/2025, 6:34am). Procalcitonin #5 < 0.02 ng/mL (06/02/2025, 6:15am). Procalcitonin #6 < 0.02 ng/mL (06/03/2025, 10:43am). Procalcitonin #7 < 0.02 ng/mL (06/04/2025, 5:41am). Blood culture #1 (05/29/2025, 9:50am): MRSA Blood culture #2 (05/29/2025, 10:25am): MRSA Blood culture #3 (05/30/2025, 2:45pm): Blood culture #4 (05/30/2025, 2:45pm): Diagnostic Findings Portable CXR (05/29/2025, 9:41am): 1. No infiltrate, effusion, pulmonary vascular congestion, pneumothorax. 2. Cardiomegaly. (by my review). CT abd/pelvis without IV contrast (05/29/2025, 9:42am): 1. There is no evidence of solid organ injury in the abdomen or pelvis on this unenhanced examination. 2. The liver is mildly enlarged and steatotic. 3. Right-sided nephrolithiasis. 4. Coronary artery atherosclerosis. 5. 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 CT cervical spine without IV contrast (05/29/2025, 9:42am): 1. No acute cervical spine fracture or subluxation. CT chest without IV contrast (05/29/2025, 9:42am): 1. No acute traumatic findings in chest. CT brain without IV contrast (05/29/2025, 9:42am): 1. No acute bleed, mass, or midline shift. Left knee xray (05/29/2025, 10:17am). 1. Soft tissue swelling. 2. No acute fracture. PG Care Time/CCT Total # of Minutes Spent Total Time Spent with Patient: Total time spent is greater than 50% in coordination of care (as documented) at patient's floor/unit and/or counseling patient: Coding Level of Care Code 01941 SUB INP/OBS CARE 2/35MIN Diagnoses Sepsis due to cellulitis L03.90; A41.9 Staphylococcus aureus bacteremia with sepsis A41.01 Toxic metabolic encephalopathy G92.8 Hypomagnesemia E83.42 Fever of unknown origin R50.9 Hypokalemia E87.6
[2025-06-05 07:14] LABS: Hematocrit (blood only) 26.2 % (42.0-52.0); Hemoglobin 8.6 g/dl (14.0-18.0); Mean Corpuscular Hemoglobin 28.5 pg (25.0-34.0); Mean Corpuscular Volume 86.8 fL (80.0-100.0); Platelet Count 147 K/uL (130-400); RDW Standard Deviation 44.7 fL (36.4-46.3); Red Blood Count 3.02 M/uL (4.70-6.10); White Blood Count 12.71 K/ul (4.8-10.8)
[2025-06-05 07:22] VITALS: RESP 16
[2025-06-05 07:31] LABS: Anion Gap 5.0 (3-11); Blood Urea Nitrogen 18.0 mg/dl (6-23); Calcium 8.3 mg/dl (8.6-10.3); Carbon Dioxide 33.0 mmol/L (21-32); Chloride 102.0 mmol/L (98-107); Creatinine Clr Calc Pharmacy 109.8 ml/min; Glucose 209.0 mg/dl (70-99(Fasting)); Magnesium 2.0 mg/dl (1.7-2.4); Potassium 4.3 mmol/L (3.5-5.1); Sodium 140.0 mmol/L (136-145)
[2025-06-05 07:54] LABS: Acanthocytes 1+; Anisocytosis Present; Immature Granulocytes # (auto) 1.12 K/uL (0.01-0.20); Immature Granulocytes % (auto) 8.8 %; Polychromasia 1+
[2025-06-05 08:26] LABS: Alanine Aminotransferase 22.0 U/L (7-52); Alkaline Phosphatase 41.0 U/L (34-104); Bilirubin,Total 0.3 mg/dl (0.2-1.0); Total Protein 5.3 gm/dl (6.0-8.3)
[2025-06-05 12:14] VITALS: PULSE 71; O2SAT 95
--- NOTE | 2025-06-05 15:24 | Discharge Summary ---
Discharge Summary Date of Service June 05, 2025 Principal Dx & Hospital Course #1 = Principal Diagnosis (1) Sepsis due to cellulitis: Sepsis has RESOLVED on discharge date 06/05/2025. Left knee cellulitis has RESOLVED on discharge date 06/05/2025. Sepsis due to left knee cellulitis began when: Patient fell down 13 steps at his home on 05/29/2025, 8:00am, as patient announced to his that he was going to work on 05/29/2025, 8:00am, even though patient is unemployed. Patient subsequently developed a positive exanthem @ left knee with 3 cm circular region of denuded flesh with granulation tissue covering denuded region completely, with surrounding warmth, slight erythema, NO induration, tenderness, crepitus, fluctuance, discharge (sanguineous, serous, suppurative), ulceration, malodor, or lymphangitic streaking, consistent with cellulitis. Patient subsequently developed sepsis due to acute left knee cellulitis. cf., Blood culture #1 (05/29/2025, 9:50am): MRSA cf., Blood culture #2 (05/29/2025, 10:25am): MRSA cf., Blood culture #3 (05/30/2025, 2:45pm): negative (final result). cf., Blood culture #4 (05/30/2025, 2:45pm): negative (final result). Patient received cefepime 2g IV x 1 dose (05/29/2025, 10:30am) in [facility] ER. Patient received daptomycin 700mg IV daily x 2 doses (05/30/2025, 1:26am; 05/31/2025, 12:42am) in [facility] Med-Surg bed #E212-1. Patient received daptomycin 700mg PO bid x 11 doses (05/31/2025, 10:30am, 8:34pm; 06/01/2025, 8:08am, 8:04pm; 06/02/2025, 9:19am, 7:53pm; 06/03/2025, 8:40am, 7:47pm; 06/04/2025, 8:21am, 9:10pm; 06/05/2025, 7:37am) in [facility] Med-Surg bed #E312-1. Daptomycin 700mg PO bid was discontinued AFTER patient received 06/05/2025, 7:37am dose, due to subsequent development of acute lactic acidosis with lactic acid 5.0 mmol/L (06/05/2025, 10:45am). Repeat lactic acid level declined to 3.1 mmol/L (06/05/2025, 2:20pm). Hence, I surmise that lactic acid level will continue to decline as patient is no longer receiving daptomycin. Notwithstanding this belief that patient's lactic acid levels will continue to decline, I advised the patient to undergo repeat lactic acid level testing within 5-7 days of hospital discharge with his PCP Dr. Larry Amaral. Patient reports that he will comply with this recommendation. In the interim, patient was discharged to [facility] ([address] [place] [address]) for short-term sub-acute rehab (e.g., less than 3 hours of physical therapy per day) on 06/05/2025 with a prescription for doxycycline 100mg PO bid, #13 capsules (starting on 06/05/2025, 8:00pm and stopping after 06/11/2025, 8:00pm dose), no refills, and which the patient will start after he arrives to [facility] ([address] [place] [address]) on 06/05/2025, 4:00pm. 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 Subsequently, patient did not receive vancomycin at all while in [facility] from admission date 05/29/2025 through discharge date 06/05/2025. (2) Staphylococcus aureus bacteremia with sepsis: See bullet #1 above for details regarding the treatment of MRSA bacteremia due to acute left knee cellulitis, leading to sepsis, NOT septic shock. (3) Toxic metabolic encephalopathy: Etiology of acute toxic metabolic encephalopathy was due to acute non- suppurative, non-bullous staphylococcal cellulitis of left knee with hematogenous dissemination (e.g., staphylococcal bacteremia). Subsequently, acute toxic metabolic encephalopathy RESOLVED rapidly after patient received cefepime 2g IV x 1 dose (05/29/2025, 10:30am) in [facility] ER, followed by daptomycin 700mg IV daily x 2 doses (05/30/2025, 1:26am; 05/31/2025, 12:42am) in [facility] Med-Surg bd #E212-1. Patient subsequently was transitioned off daptomycin 700mg IV daily and started on linezolid 600mg PO bid (day #1 on 05/31/2025, 10:30am) with initially anticipated D/C home or to [facility] (if patient's insurance company approves patient for acute rehab @ [facility]) in the 06/04/2025 am, on linezolid 600mg PO bid for 12 more days, to complete a total of 14 days of antibiotic therapy, starting with the 05/30/2025, 2:45pm blood cultures #3 and #4, assuming that both blood cultures remain negative/normal. Patient subsequently felt too weak to go back home or to go to [facility], and hence, patient remained in [facility]. Patient subsequently received daptomycin 700mg PO bid x 11 doses (05/31/2025, 10:30am, 8:34pm; 06/01/2025, 8:08am, 8:04pm; 06/02/2025, 9:19am, 7:53pm; 06/03/2025, 8:40am, 7:47pm; 06/04/2025, 8:21am, 9:10pm; 06/05/2025, 7:37am) in [facility]-Surg bed #E312-1. Daptomycin 700mg PO bid was discontinued AFTER patient received 06/05/2025, 7:37am dose, due to subsequent development of acute lactic acidosis with lactic acid 5.0 mmol/L (06/05/2025, 10:45am). Repeat lactic acid level declined to 3.1 mmol/L (06/05/2025, 2:20pm). Hence, I surmise that lactic acid level will continue to decline as patient is no longer receiving daptomycin. Notwithstanding this belief that patient's lactic acid levels will continue to decline, I advised the patient to undergo repeat lactic acid level testing within 5-7 days of hospital discharge with his PCP Dr. Larry Amaral. Patient reports that he will comply with this recommendation. In the interim, patient was discharged to [facility] ([address] [place] [address]) for short-term sub-acute rehab (e.g., less than 3 hours of physical therapy per day) on 06/05/2025 with a prescription for doxycycline 100mg PO bid, #13 capsules (starting on 06/05/2025, 8:00pm and stopping after 06/11/2025, 8:00pm dose), no refills, and which the patient will start after he arrives to [facility] ([address] [place] [address]) on 06/05/2025, 4:00pm. Of note, acute toxic metabolic encephalopathy did not recur while patient rem ained in [facility] from admission date 05/29/2025 through discharge date 06/05/2025. Patient speaks clearly, fluently, and articulately on hospital discharge date 06/05/2025. Patient is not confused, lethargic, or obtunded on hospital discharge date 06/05/2025. (4) Hypomagnesemia: cf., Mg 1.1 mg/dL (05/29/2025, 9:50am). cf., Mg 1.8 mg/dL (05/30/2025, 6:26am). cf., Mg 1.8 mg/dL (05/31/2025, 5:40am). cf., Mg 1.9 mg/dL (06/01/2025, 6:34am). cf., Mg 2.0 mg/dL (06/02/2025, 6:15am). cf., Mg 2.1 mg/dL (06/04/2025, 5:41am). cf., Mg 2.0 mg/dL (06/05/2025, 6:50am). Etiology of acute hypomagnesemia remains unclear, but was probably due to decreased oral intake of magnesium-containing foods. Patient subsequently received magnesium sulfate 1g IV bid x 2 doses (05/29/2025, 12:52pm, 2:05pm), and magnesium oxide 400mg PO bid x 1 dose (05/29/2025, 8:55pm), and acute hypomagnesemia RESOLVED. Patient subsequently received magnesium oxide 400mg PO bid x 2 doses (05/30/2025, 8:08am, 8:25pm). Acute hypomagnesemia never recurred while patient remained in [facility] from 05/30/2025 through 06/05/2025. Observe. (5) Fever of unknown origin: Due to sepsis, due to: (a) acute left knee non-suppurative, non-bullous staphylococcal cellulitis. (b) acute staphylococcal bacteremia. (6) Hypokalemia: cf., K 3.3 mmol/L (05/29/2025, 9:50am). cf., K 4.4 mmol/L (05/30/2025, 6:26am). cf., K 4.1 mmol/L (05/31/2025, 5:40am). cf., K 4.5 mmol/L (06/01/2025, 6:35am). cf., K 4.0 mmol/L (06/02/2025, 6:15am). cf., K 4.2 mmol/L (06/03/2025, 10:43am). cf., K 4.3 mmol/L (06/04/2025, 5:41am). cf., K 4.3 mmol/L (06/05/2025, 6:50am). Etiology of acute hypokalemia remains unclear, but was probably due to decreased oral intake of potassium-containing foods. Patient subsequently received KCl 40meq PO x 1 dose (05/29/2025, 11:20am), KCl 10meq IV x 1 dose (05/29/2025, 6:21pm), and acute hypokalemia RESOLVED. Acute hypokalemia never recurred while patient remained in [facility] from 05/30/2025 through 06/05/2025. Observe. Plan Initial Hospitalist Plan of Action on Admission Date 05/29/2025: #Fever of unknown origin - Admit to PCU - Diabetic diet (may eat when more awake/alert) - VS per unit protocol - Obtain VBG d/t somnolence - Puentes catheter ordered to be inserted - Pt panscanned w/o evidence of traumatic fx/infectious source - CRP mildly elevated at 2, ESR and PCT WNL - No leukocytosis or shift on CBC - Fever reported at home 104F and in ED 38.9C - Blood cultures x2 sets obtained/pending - Given dose of IV Cefepime in ED - UA w/ reflex culture ordered - await results, if obvious source continue broad spectrum coverage and await sensitivities to tailor abx choice accordingly - If UA negative, LP to be ordered and consider ID consult - S/P 2L of plasmalyte in ED, defer further IVF at present - Stress dose Solu-Cortef 100mg IV x1 now and 50mg q6 #Frequent falls - Fall precautions - PT/OT eval and tx - Panscanned w/o evidence of traumatic injuries #Encephalopathy - metabolic vs. toxic - ?Related to potential infection vs medication effect from fentanyl given in ED - No witnessed seizure activity - VBG as noted above - PCU with end-tidal CO2 - Pending UA, consider MRI + LP #Hypotension - S/P 2L of IVF as noted above - Hold Bumex and Lisinopril - Metoprolol can be given with parameters #Hypokalemia and hypomagnesemia - Mag Sulfate 1g IVx2 doses given in ED - Increase oral mag ox to 400mg BID - Replace potassium - Repeat CMP + mag in am #Chronic Back Pain - Continue oxycodone and cymbalta #Seizure disorder - Continue lamictal, depakote, vimpat #Bipolar D/O/PTSD/MDD - Continue lithium, Seroquel, Trazodone, Abilify and Effexor #Diabetes Mellitus T2 - Continue Lantus 6u BID - SSI w/ CF 65 and CR 22 - AC and HS BSG checks - Diabetic diet ordered #CAD/DLD - Continue aspirin, plavix, metoprolol and Crestor #COPD/Chronic respiratory failure - Continue supplemental O2 via NC to maintain pulse ox ~92% - Continue neb/inhalers VTE ppx will be covered with Lovenox 40mg sq daily. AM labs have been ordered. Therapy eval as above. Plan has been d/w Dr. Carney who will also see and evaluate this patient. Further orders will be implemented as clinically warranted. Admission HPI Per Admitting Provider Waldo is a 54 yo M with a pmhx of obesity, chronic pain, IDDM, BPH, COPD with chronic respiratory failure, CAD, bipolar disorder, iatrogenic cazares- hypopituitarism, adrenal insufficiency, paroxysmal afib and generalized tonic- clonic seizure disorder who presented to the ER today due to frequent falls at home and reported fever. Patient is not able to provide any history due to somnolence. reports temp 104 at home last PM. Was up twice to the use the bathroom, reported once was for voiding, second was for BM. No urinary complaints, cough, congestion, chest pain, or abd pain. No n/v/d. She reports that he fell multiple times last evening. Just discharged from [facility] on 05/28 after a stay 05/25-05/28 after a stay for generalized weakness, QUENTIN, and electrolyte derangements. Work up today is notable for a mag of 1.1, potassium 3.3, and a fever of 38.9C Tmax. He was noted to have a soft BP of 83/51, claims that he has been taking his medications for adrenal insufficiency as prescribed and hasn't missed any doses. He is also mildly tachycardic. He is currently on 4L of nasal cannula O2 with a sat of 100%. He is s/p 2L of plasmalyte, a dose of acetaminophen, fentanyl d/t complaints of back pain, and also a dose of cefepime to cover possible sepsis. He has been referred to hospital medicine team for further care. Discharge Exam Constitutional General: Comfortable, coherent, and cooperative. Not confused, obtunded, or lethargic. Patient speaks with regular darren, and in complete, fluent, and articulate 7-9 word sentences without pause, interruption, cough, or wheeze with: O2 sat 98% on 3 liters/minute O2 via nasal cannula (05/30/2025, 8:40pm). O2 sat 97% on 1 liter /minute O2 via nasal cannula (05/31/2025, 7:40am). O2 sat 99% on 4 liters/minute O2 via nasal cannula (06/01/2025, 7:30pm) O2 sat 99% on 4 liters/minute O2 via nasal cannula (06/02/2025, 8:07pm). O2 sat 97% on 2 liters/minute O2 via nasal cannula (06/03/2025, 4:21pm). O2 sat 99% on 2 liters/minute O2 via nasal cannula (06/04/2025, 3:39pm). O2 sat 95% on room air (06/05/2025, 12:13pm). HEENT: Normocephalic, atraumatic. No nystagmus, gaze paresis, anisocoria, miosis, mydriasis, hyphema, scleral injection, conjunctivitis, or pterygium. No otorrhea or rhinorrhea. No pharyngeal erythema, edema, or discharge. Neck: Supple, no stridor, bruit, goiter, or hepato-jugular reflux. Jugular venous pressure is estimated to be 3 cm above the sternal angle of Roberto, which in turn, is 5 cm above the level of the right atrium; with jugular venous pressure estimated to be 8 cm, then, there is no jugular venous distention on 06/05/2025. Lymphatics: No cervical (anterior/posterior), supraclavicular, infra clavicular, axillary, epitrochlear, or inguinal adenopathy. Chest: Symmetric rise and fall with respirations. Non-tender to palpation. Lungs: Clear to auscultation and percussion. Heart: Regular rate and rhythm. S1 and S2 noted. No S3 or S4 summation gallop. No tripartite friction rub. Grade II/ early systolic murmur @ LLSB without radiation to the carotids, axilla, or back, and which remains invariant in regards to the respiratory cycle. Abdomen: Soft, non-tender, non-distended. No rebound, guarding, Moore's sign, or organomegaly. Bowel sounds auscultated in all 4 quadrants. Extremities: No clubbing, cyanosis, or edema. Skin: No decubitus ulcer or enanthem. RESOLVED: Positive exanthem @ left knee with 3 cm circular region of denuded flesh with granulation tissue covering denuded region completely, with NO warmth, NO erythema on 06/01/2025 - 06/05/2025 exams, compared to 05/31/2025 exam; still NO induration, tenderness, crepitus, fluctuance, discharge (sanguineous, serous, suppurative), ulceration, malodor, or lymphangitic streaking, s/p fall down 13 steps at patient's home on 05/29/2025, 8:00am. Neuro: Awake and oriented in regards to person, place, time, and situation. DTR+. 5/5 motor strength in all 4 extremities, both proximally and distally. No myoclonus or tics or tremors. Genito-urinary: No urethral discharge. No puentes catheter. Discharge Plan Discharge Items Patient Disposition: Transfer [facility] Reason For Visit: RECURRENT FALLS, FUO Discharge Diagnosis: 1. Sepsis due to acute MRSA cellulitis of left knee. 2. Acute MRSA bacteremia (as noted on 05/29/2025, 9:50am, 10:25am blood cultures). 3. Acute toxic metabolic encephalopathy due to #1 and #2 above. 4. Acute hypomagnesemia with admission Mg 1.1 mg/dL (05/29/2025, 9:50am). 5. Acute hypokalemia with admission K 3.3 mmol/L (05/29/2025, 9:50am). Condition on Discharge: Fair Activity: Resume your previous activity Lifting: Gradually increase as tolerated Bathing: No limitations Sexual Activity: When tolerated Exercise/Sports: Gradually increase as tolerated Weightbearing: Full weightbearing Non-emergency contact: Primary Care Provider Call non-emergency contact if: you have any medication questions Follow-up/Referrals: Larry Amaral MD [Primary Care Provider] - 06/04/25 11:00 am (Hospital follow up is scheduled for June 04, 2025 at 11:00 am) Margarette Lindo DNP [Nurse Practitioner] - 06/20/25 10:00 am Diet: Heart Healthy Addtl Attending Provider Instructions: 1. See your PCP Dr. Larry Amaral within 5-7 days of hospital discharge for routine, follow up visit, and to repeat lactic acid level testing, now that linezolid 600mg PO bid x 11 doses (05/31/2025, 10:30am to 06/05/2025, 7:37am) has been discontinued as it most likely caused acute lactic acidosis with lactic acid 5.0 mmol/L (06/05/2025, 10:45am), RESOLVED with lactic acid 3.1 mmol/L (06/05/2025, 2:20pm). 2. See your Palliative Care Dr. Margarette Lindo within 5-7 days of hospital discharge to discuss palliation of chronic pain, now treated well with home- scheduled oxycodone IR 15mg PO q4 prn pain in [facility]. Pending Studies at Discharge: Yes Studies:: 1. See your PCP Dr. Larry Amaral within 5-7 days of hospital discharge for routine, follow up visit, and to repeat lactic acid level testing, now that linezolid 600mg PO bid x 11 doses (05/31/2025, 10:30am to 06/05/2025, 7:37am) has been discontinued as it most likely caused acute lactic acidosis with lactic acid 5.0 mmol/L (06/05/2025, 10:45am), RESOLVED with lactic acid 3.1 mmol/L (06/05/2025, 2:20pm). Stand-Alone Forms: My [facility], Smoking Cessation Skilled Items Patient informed of condition?: Yes DNR: Yes Discharge Level of Care: Skilled Communicable Disease: No Discharge Prognosis: Stable Lines: None Urinary Catheter: Yes Medications and DC Order Prescriptions: New doxycycline hyclate 100 mg capsule 100 mg PO BID 7 Days Qty: 13 0RF Continued clopidogrel [Plavix] 75 mg tablet 75 mg PO QPM lithium carbonate 300 mg tablet 300 mg PO AMHS fluticasone propionate [Flonase Allergy Relief] 50 mcg/actuation spray,suspension 1 spray intranasal HS PRN (Reason: allergy symptoms) Qty: 16 0RF Rx Instructions: administer into each nostril (DME) insulin syringe-needle U-100 [BD Insulin Syringe Ultra-Fine] 1 mL 30 gauge x 1/2" syringe See Rx Instructions .Route Qty: 300 1RF Rx Instructions: use tid (DME) OneTouch Verio test strips Strip See Rx Instructions .MEDSUPPLY Qty: 150 5RF Rx Instructions: check blood sugars 4 times a day (DME) blood-glucose meter [OneTouch Verio Reflect Meter] Misc See Rx Instructions miscellaneous .MEDSUPPLY Qty: 1 0RF Rx Instructions: As directed (DME) lancets [OneTouch Delica Plus Lancet] 33 gauge misc See Rx Instructions .MEDSUPPLY Qty: 150 5RF Rx Instructions: As directed check blood sugars 4 times a day Botox 200 unit recon soln See Rx Instructions IM .COMPLEX Qty: 1 3RF Rx Instructions: 155 UNITS IM IN THE FACE AND NECK MUSCLES EVERY 12 WEEKS PER MIGRAINE PROTOC OL rosuvastatin 20 mg tablet 20 mg PO QAM Qty: 90 2RF (DME) pen needle, diabetic [BD Vy 2nd Gen Pen Needle] 32 gauge x 5/32" needle See Rx Instructions miscellaneous .MEDSUPPLY Qty: 100 3RF Rx Instructions: inject with a new pen needle daily lorazepam 0.5 mg tablet 0.5 mg PO DAILY PRN (Reason: Seizure Activity) levetiracetam 1,000 mg tablet 1,000 mg PO Q12H Qty: 60 6RF metoprolol succinate 25 mg tablet extended release 24 hr 25 mg PO HS Qty: 90 3RF lacosamide 150 mg tablet 150 mg PO BID Qty: 60 5RF (DME) Oxygen Home Liters Per Minute See Rx Instructions .Route Rx Instructions: 4 L o2 via NC As directed, metformin 1,000 mg tablet 1,000 mg PO BID Qty: 180 3RF Hold Instructions: Per Dr Voss to hold as of 11/23/22 testosterone 20.25 mg/1.25 gram (1.62 %) gel in metered-dose pump 2 pump TOP PM Qty: 75 5RF Rx Instructions: apply 1 pump amount over max area of EACH upper arm and shoulder PDMP Queried ok to fill 03/17/2023 DS cholecalciferol (vitamin D3) 50 mcg (2,000 unit) capsule 50 mcg PO QPM Qty: 90 1RF levothyroxine [Synthroid] 150 mcg tablet 150 mcg PO DAILYBB Qty: 30 5RF (DME) FreeStyle Rosalie 2 Sensor Kit See Rx Instructions .Route Qty: 6 3RF Rx Instructions: Change every 14 days desmopressin 0.2 mg tablet 0.4 mg PO BID Qty: 120 5RF (DME) FreeStyle Rosalie 2 [place] Misc See Rx Instructions .Route Qty: 1 0RF Rx Instructions: Check blood glucose before each meal mirtazapine [Remeron] 30 mg tablet 30 mg PO HS albuterol sulfate [Ventolin HFA] 90 mcg/actuation HFA aerosol inhaler 2 inh inhalation Q6H PRN (Reason: shortness of breath or wheezing) Qty: 6.7 2RF venlafaxine 75 mg capsule,extended release 24hr 75 mg PO QAM Rx Instructions: Take with 150mg cap prazosin 5 mg capsule 5 mg PO HS ramelteon 8 mg tablet 8 mg PO HS (DME) nebulizers [Compact Compressor Nebulizer] Misc See Rx Instructions .Route Qty: 1 0RF Rx Instructions: One compact compressor nebulizer. Use as directed. Please include tubing, mouth piece and cup. ipratropium-albuterol 0.5 mg-3 mg(2.5 mg base)/3 mL solution for nebulization 3 ml inhalation QID PRN (Reason: wheezing) Qty: 90 0RF trazodone 100 mg tablet 100 mg PO HS ondansetron 8 mg tablet,disintegrating 8 mg PO Q8H PRN (Reason: nausea and vomiting) Qty: 30 0RF phenazopyridine [Pyridium] 200 mg tablet 200 mg PO TID Qty: 9 2RF Rx Instructions: Can take three times daily for up to three days; then must give the body a two day break ferrous sulfate 325 mg (65 mg iron) tablet 325 mg PO Q OTHER DAY insulin glargine [Lantus Solostar U-100 Insulin] 100 unit/mL (3 mL) insulin pen 12 unit SUBCUT HS Hold Instructions: Has been on hold for a few weeks per pt Patient Comments: PER PT HE IS TAKING 12 UNITS -CONFIRMED ON 07/19/24 Nurtec ODT 75 mg tablet,disintegrating 75 mg PO DAILY PRN (Reason: Migraine Headache) Qty: 16 6RF magnesium oxide 400 mg (241.3 mg magnesium) tablet 400 mg PO DAILY propranolol 120 mg capsule,extended release 24hr 120 mg PO HS Spiriva Respimat 2.5 mcg/actuation mist 2 puff inhalation DAILY Qty: 4 4RF sodium chloride 7 % solution for nebulization 1 inh inhalation BID Qty: 240 3RF acetylcysteine 200 mg/mL (20 %) solution 2 ml inhalation BID PRN (Reason: Chest congestion) Qty: 100 6RF dutasteride 0.5 mg capsule 0.5 mg PO QAM Rx Instructions: TAKE 1 CAPSULE BY MOUTH DAILY IN THE MORNING Baqsimi 3 mg/actuation spray,non-aerosol 3 mg intranasal ONCE PRN (Reason: Severe Hypoglycemia) Rx Instructions: for treatment of severe hypoglycemia, second dose may be given if patient does not respond after 15 minutes . Per caregiver, pt has never has to use this medication. bumetanide 1 mg Tablet 1 mg PO QAM Qty: 30 0RF Hold Instructions: Resume on 06/03/25. Patient Comments: Medication on hold until 06/03/25 per patient. vitamin B complex [Vitamins B Complex] Capsule 1 cap PO QAM Qty: 30 0RF arformoterol [Brovana] 15 mcg/2 mL solution for nebulization 2 ml inhalation BID venlafaxine 150 mg capsule,extended release 24hr 150 mg PO QAM quetiapine 50 mg tablet extended release 24 hr 50 mg PO QAM nystatin 100,000 unit/gram cream 1 applic topical BID PRN (Reason: Other) duloxetine 30 mg capsule,delayed release(DR/EC) 30 mg PO HS Qty: 30 0RF Norditropin FlexPro 5 mg/1.5 mL (3.3 mg/mL) pen injector 0 mg SQ QPM Patient Comments: Pt is unsure of this medication at this date/time. It is on pt's med list from pharmacy as last filled 05/06/25 x30 day supply. Original Directions: 0.3mg sc qpm aripiprazole 5 mg tablet 5 mg PO QAM divalproex 500 mg tablet,delayed release (DR/EC) 1,000 mg PO QAM budesonide 0.5 mg/2 mL suspension for nebulization 0.5 mg inhalation QPM hydrocortisone 10 mg tablet 10 - 20 mg PO UD Rx Instructions: 2 tabs (20mg) in AM, 1 tab (10mg) in PM duloxetine 60 mg capsule,delayed release(DR/EC) 60 mg PO QAM oxycodone 5 mg Tablet 15 mg PO Q4H PRN (Reason: pain) Qty: 84 0RF naloxone [Narcan] 4 mg/actuation spray,non-aerosol 1 spray intranasal ONCE PRN (Reason: opioid overdose) Qty: 2 2RF Held lisinopril 40 mg tablet 40 mg PO QAM Hold Instructions: Resume on 06/03/25. Patient Comments: Medication on hold until 06/03/25 per patient. aspirin 81 mg capsule 81 mg PO QPM Hold Instructions: Resume on 06/12/25. Hold OFF aspirin while you are taking linezolid 600mg PO bid (05/31/2025 pm through 06/11/2025 pm) as linezolid can lower your platelet count. Restart aspirin on 06/12/2025 am. Discontinued potassium phosphate, monobasic 500 mg tablet,soluble 1,000 mg PO BID Qty: 2 0RF No Action (DME) FreeStyle Rosalie 2 Plus Sensor Device See Rx Instructions .Route Qty: 6 3RF Rx Instructions: change every 15 days Discharge Orders: Discharge Order (Routine); Ordered 06/05/25 Ordered By: Davy Benoit Admission Data Admit Date/Time: 05/29/25 14:14 Attending Provider: Davy Benoit Admit Provider: Trenton Carney Primary Care Provider: Larry Amaral Other Providers: Trenton Carney; Aide Beck; Margarette Lindo; Jonny Fuller Other Interventions: Discharge Summary Assessment (RN) Last Done: 05/31/25 13:58 Hospital Stay Data Consultations 05/29/25 12:46 ED Decision to Admit Stat 05/30/25 14:20 Consult Palliative Care Routine Diagnostic Imagining Performed 05/29/25 09:42 CT abd pelvis wo con Stat CT cervical spine wo con Stat CT chest diagnostic wo con Stat CT head/brain wo con Stat Pending Results Patient Have Any Pending Studies at Discharge: Yes Discharge Instructions Given to Patient (Per Discharging Provider) 1. See your PCP Dr. Larry Amaral within 5-7 days of hospital discharge for routine, follow up visit, and to repeat lactic acid level testing, now that linezolid 600mg PO bid x 11 doses (05/31/2025, 10:30am to 06/05/2025, 7:37am) has been discontinued as it most likely caused acute lactic acidosis with lactic acid 5.0 mmol/L (06/05/2025, 10:45am), RESOLVED with lactic acid 3.1 mmol/L (06/05/2025, 2:20pm). 2. See your Palliative Care Dr. Margarette Lindo within 5-7 days of hospital discharge to discuss palliation of chronic pain, now treated well with home- scheduled oxycodone IR 15mg PO q4 prn pain in [facility]. Total Time Total Time Spent Total Time Spent (In Minutes): 35 minutes. Of this time period, 19 minutes were spent in coordinating patient's discharge. Coding Level of Care Code 28153 INP/OBS DISCH >30 MIN Diagnoses Sepsis due to cellulitis L03.90; A41.9 Staphylococcus aureus bacteremia with sepsis A41.01 Toxic metabolic encephalopathy G92.8 Hypomagnesemia E83.42 Fever of unknown origin R50.9 Hypokalemia E87.6
[2025-06-05 15:27] VITALS: BP 165/74; TEMP 97.9
== END 2025-06-05 15:35 | DRG 871 ==
LOC: ED 09:27 → EDINP 14:14 → SUATTDRO 14:14 → 2S 18:42 → 2E 05-30 01:28 → 3E 06-02 12:29

== ENCOUNTER 2025-06-16 19:14 | Observation (INO) ==
--- NOTE | 2025-06-16 19:22 | Emergency Department Note ---
Impression & Plan Acute encephalopathy, Acidosis, lactic, Hyperphosphatemia, Hypomagnesemia, Chronic anemia, Abrasion of knee, QUENTIN (acute kidney injury) ED Provider Note NAME: LINSEY VIRAMONTES Jr AGE: 54 SEX: M : 1970 ARRIVES VIA: Ambulance INFORMANT: Patient, EMS, ED PROVIDER(S): Sonu Cobos DO CHIEF COMPLAINT: AMS HPI: This is a 55-year-old male with the PMHx of PNES, chronic pain syndrome, IDDM, BPH, COPD with chronic respiratory failure on LFNC, CAD, bipolar disorder, iatrogenic cazares-hypopituitarism, adrenal insufficiency, paroxysmal atrial fibrillation and obesity presenting to [facility] for further evaluation of unresponsive episode. Patient is accompanied by EMS who provide additional history. EMS reports that the patient had a 20-minute episode of unresponsiveness. Does appear that he fell. Patient has an abrasion to the left knee. They report that he had lower blood pressures when they arrived. The patient has been largely nonverbal and unresponsive. Further history obtained from the patient's . The patient has been under an immense amount of stress. Patient has had issues with his children not speaking with him. The patient was at a family member's house today and had 2 alcoholic beverages. He seemed off throughout the day. He has had a poor appetite. The patient is retrospectively saying that he needs his daughter. The patient is unable to provide further history or review of systems. Further review of systems obtained from the . They deny fever or chills. No cough or congestion. Denies chest pain or palpitations. No shortness of breath. They deny abdominal pain, nausea and vomiting. No urinary complaints. No recent changes in bowel movements. Patient denies recent changes in medications or OTC supplements. Patient offers no other complaints, today. ADDITIONAL HISTORY OBTAINED: Per HPI Chronic Medical/Social Conditions Affecting Care: Per HPI PAST MEDICAL HISTORY: See Below PAST SURGICAL HISTORY: See Below FAMILY HISTORY: See Below SOCIAL HISTORY: See Below HOME MEDICATIONS: See Below ALLERGIES: See Below VITALS: See Below PHYSICAL EXAMINATION: GENERAL: Sitting up in bed, confused, repetitive speech, well appearing, well nourished, no distress, non-toxic EYE EXAM: normal conjunctiva. PERRL and EOM's grossly intact. OROPHARYNX: no exudate, no erythema, lips, buccal mucosa, and tongue normal and mucous membranes are moist NECK: supple, no nuchal rigidity, no adenopathy, non-tender LUNGS: Clear to auscultation. Normal chest wall mechanics HEART: no murmurs, regular rate, regular rhythm ABDOMEN: abdomen soft, non-tender, normo-active bowel sounds, no masses, no rebound or guarding. BACK: Back is symmetrical on inspection and there is no deformity, no midline tenderness, no CVA tenderness. SKIN: no rashes and no bruising UPPER EXTREMITIES: upper extremities are grossly normal. LOWER EXTREMITIES: No pitting edema. there is an abrasion over the lateral aspect of the left knee. NEURO EXAM: GCS 13. The patient is initially unresponsive. Does respond to pain. Patient then proceeds to repetitively say that he needs his daughter. Patient intermittently follows commands. This lasted for approximately 5 to 10 minutes and he became more responsive but slightly confused. He is inattentive. No gross weakness of the extremities. Sensation is intact. MEDICAL DECISION MAKING: Differential diagnoses includes but not limited to hypoglycemia, electrolyte derangements, dehydration, shock, CVA, ICH, hydrocephalus, NPH, UTI, pneumonia, viral URI, postictal period, ACS, dysrhythmia, metabolic encephalopathy, multifactorial encephalopathy, hypercapnia, hypoxia, polypharmacy, substance use, PNES, stress response In summary, this is a 55 year old male who presented with AMS. Differential as above. Nursing notes and pertinent past medical records reviewed. Vital signs reviewed and the patient is afebrile and HDS. While EMS documented hypotension, no evidence of shock in the ED. History and presentation revealed Extensive past medical history. Unclear if he has epilepsy or PNES. Patient has immense amount of stress at home and had an unresponsive episode today. It sounds like he did fall and possible head strike but no significant evidence of trauma besides a left knee abrasion on my evaluation. The patient's evaluation initially shows altered mental status. He does seem mildly confused. His unresponsiveness is not clear but he is clearly protecting himself. I do feel there is a psychiatric component to the patient's presentation today. They cannot deny that the patient has significant comorbidities and recent illness. Plan to recheck labs and a CT head for further evaluation. I do feel the patient is struggling at home. has noted significant ambulatory dysfunction and weakness with increased episodes of unresponsiveness. The patient may benefit from further inpatient management for rehabilitation services. on arrival, the patient's [id number] glucose is normal. Patient had significant difficulty with obtaining IV access. I placed an ultrasound- guided peripheral IV as below. IV fluid resuscitation was initiated. The patient's mentation continued to improve during the beginning parts of his ED course. Diagnostics interpreted by me include EKG and cardiac monitoring as listed below: -Cardiac Monitoring: An order was placed for continuous cardiac monitoring. The monitor shows a rate of 80-100s with regular rhythm. -ECG: EKG independently interpreted by me demonstrates rhythm at a ventricular rate of [address] segment changes suggest STEMI. Intervals are within normal limits. Patient completed laboratory studies and imaging. Results independently interpreted by me are mild metabolic acidosis in the form of an anion gap. Appears to be from elevated lactate. IV fluid resuscitation was ongoing.. QUENTIN noted from baseline. Electrolyte derangements include mild hypomagnesemia and hyperphosphatemia No significant leukocytosis. The patient does have stable anemia. IV fluid resuscitation was continued in the emergency department. CTH independently interpreted by me reveals no evidence of ICH. No significant hydrocephalus. No major skull fractures. CTH does not demonstrate findings to suggest an etiology of the patient's symptoms or presentation, today. CXR independently interpreted by me reveals no evidence of focal consolidation to suggest pna. No large pneumothorax or pleural effusion. While I do agree of radiology regarding low lung volumes, they do note opacifications in the bilateral lungs. As compared to prior chest x-rays this appears similar. Patient having further unresponsive episodes. Patient is blankly staring at me. Clearly protecting himself. With raise of arm overhead, the patient does not allow the arm to strike his head. Vital signs remained normal. No seizure-like activity. Discussed extensively with the patient's partner at the bedside. I discussed my concerns while the patient does have medical issues some of this is behavioral and psychological. I do not doubt that he has an QUENTIN. I do not doubt there is ambulatory dysfunction and weakness. I have significant concerns safely discharging this patient. It is unclear if he had significant trauma today but CT head is reassuring. Unclear if he is having epileptic seizures versus nonepileptic seizures. Unclear if he had a seizure today. I do feel that the patient's encephalopathy is likely multifactorial. Likely a component of possible polypharmacy, metabolic derangements and psychogenic. The patient has no systemic signs of illness including fever. No findings to suggest infectious etiologies. Nonfocal exam and doubt stroke. Has had an extensive workup in the hospital as well as with outpatient neurology. Patient has been compliant with his home medications including AEDs. Patient is unsafe to return home at this time. The patient was discussed with the hospitalist team for admission. Admission request was sent for acute encephalopathy, QUENTIN with electrolyte derangements including hypophosphatemia and lactic acidosis. I discussed the case with the [facility] hospitalist service via [employer] and they are agreeable to admit the patient to their services by Dr. Michele. Based on the above, including the patient's age, coexisting illnesses, labs, imaging, and exam findings the decision to treat as an inpatient. I discussed the patient with the hospitalist team who recommended admission to their services. They received the medications, treatments, interventions indicated above and their condition remained guarded. I discussed my findings with the patient and their family and they understand and agree with the treatment plan. All patient / family questions were answered to their satisfaction. Consults/Care Managements Discussions: Per MDM ER treatment provided: See above Procedures: Peripheral IV inserted under ultrasound guidance by me. Left brachial 20-gauge inserted. Collapsible vein with appropriate diameter confirmed. Puncture of anterior wall confirmed with US and flash. Advanced with ultrasound guidance. Flushed with easy advancement. Flushed without issue. Good return. IV functioning appropriately. Secure dressing placed by nursing staff. Critical Care: None The chart was completed utilizing [employer] ([employer]) Speech voice recognition software. Grammatical errors, random word insertions, pronoun errors, and incomplete sentences are an occasional consequence of this system due to software limitations, ambient noise, and hardware issues. Any formal questions or concerns about the content, text, or information contained within the body of this dictation should be directly addressed to the physician for clarification. Past Med/Surg History Problem List (Updated 06/19/25 @ 15:42 by Sonu Cobos DO) QUENTIN (acute kidney injury) (Acute) Abrasion of knee (Acute) Chronic anemia (Acute) Hypomagnesemia (Acute) Hyperphosphatemia (Acute) Acidosis, lactic (Acute) Acute encephalopathy (Acute) Vision loss, left eye Hypopituitarism Fall (Acute) Abrasion of knee, left (Acute) Counseling regarding advanced directives and goals of care Psychogenic nonepileptic seizure Asthma COPD (chronic obstructive pulmonary disease) Intractable back pain (Acute) Numbness of right foot Advanced care planning/counseling discussion Bilateral nephrolithiasis (Chronic) Elevated lactic acid level Compartment syndrome of lower extremity Ambulatory dysfunction (Acute) Arthralgia Venous stasis ulcers (Acute) Chronic venous insufficiency (Chronic) Presbyopia of both eyes Epiretinal membrane (ERM) of left eye Ocular hypertension Secondary cataract of left eye with vision obscured Combined form of senile cataract of right eye Abnormal chest CT Demyelinating disease Esophageal dysphagia 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 Current use of proton pump inhibitor Chronic migraine without aura or status migrainosus Anemia (Acute) Ulcerative colitis Mixed hyperlipidemia Lumbar stenosis with neurogenic claudication Arachnoid cyst of posterior cranial fossa Pseudoseizures Idiopathic polyneuropathy Essential tremor Mitral regurgitation Depression Anxiety (Chronic) Medical History Therapeutic opioid-induced constipation (OIC) Bipolar 1 disorder Diabetes Palliative care by specialist Back pain at L4-L5 level Staphylococcus aureus bacteremia with sepsis Sepsis due to cellulitis Hypokalemia Abrasion of knee Frequent falls Generalized weakness Hypomagnesemia Sepsis Fever of unknown origin Generalized pain Contusion of face Hypomagnesemia Opiate dependence Hypotension Toxic metabolic encephalopathy Hyperphosphatemia Hypomagnesemia Hypocalcemia Acute hyponatremia Dizziness QUENTIN (acute kidney injury) CHI (closed head injury) Acute flank pain Kidney stones currently causing severe pain History of pneumonia (03/2025) states has been admitted for total of 36 days ytd at [facility] for pneumonia, last was approxl 1 month ago Ocular hypertension Ulcerative colitis Mixed hyperlipidemia Lumbar stenosis with neurogenic claudication Idiopathic polyneuropathy Essential tremor Demyelinating disease Compartment syndrome of lower extremity (02/2025) per hx Chronic venous insufficiency Back pain at L4-L5 level Arthralgia Depression with anxiety Hx of fall (11/2024) History of dysphagia Hematuria On home O2 4 L nc History of recent hospitalization states has been in hospital 36 days this year so far with pneumonia- last was approx 1 month ago Sepsis Pyelonephritis Urinary tract obstruction due to kidney stone Lactic acidosis LPRD (laryngopharyngeal reflux disease) Severe obesity (BMI 35.0-35.9 with comorbidity) Uncontrolled type 2 diabetes mellitus with hyperglycemia Suspect low glycation index meaning his A1c is typically about 2 points lower than what his average glucose would suggest. Hypothyroidism Hypertension Non-occlusive coronary artery disease Acute dehydration hx Witnessed seizure-like activity Nonepileptic episode Chronic narcotic dependence COPD with exacerbation (03/2025) follows with dr. mccarthy (last seen while in hospital at [facility] with pneumonia ~) Anti-cyclic citrullinated peptide antibody positive Restrictive lung disease follows with dr. mccarthy, on O2 4L nc at all times Abnormal PFTs (pulmonary function tests) Bipolar disorder (10/11/22) Obstructive sleep apnea cpap 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 Follows with endocrinology- Secondary adrenal insufficiency Transient alteration of awareness Chronic adrenal insufficiency Leukocytosis Acute asthma exacerbation hx Acute on chronic hypoxic respiratory failure O2 4L nc Migraine Hematoma Growth hormone deficiency Diaphoresis hx Acute hypoxic respiratory failure hx Influenza A (12/2024) hx- Status epilepticus (09/13/24) Knee hemarthrosis, right (09/13/24) Acute on chronic anemia (09/13/24) Acute metabolic encephalopathy (09/13/24) hx Laceration of toe of right foot Closed fracture of right fibula with malunion Right fibular fracture hx Acute on chronic respiratory failure with hypoxia and hypercapnia Shortness of breath only if not wearing oxygen Chronic respiratory failure with hypoxia Obesity CKD (chronic kidney disease), stage III Peripheral edema Atrial fibrillation (02/15/24) no cardioversion- has loop recorder and watchmans device, follows with dr. kilgore (03/2025 while inpt.) Chronic low back pain Panhypopituitarism Lumbosacral radiculopathy Toxic encephalopathy Chest pain hx Acute dyspnea hx Acute CHF hx Hypoglycemia hx Syncope and collapse Reason for loop recorder No recent issues since bed bound from femur fracture in Sep 2022 per patient Internal hemorrhoids Recurrent seizures (05/01/25) goes sometimes months without seizures, then may may have 2 in one day- last seizure- 05/01/25- grand mal, lost control of bowel and bladder- informed neuro, dr. villa- told to stay on meds (last saw dr. villa on 04/30/25) Pituitary diabetes insipidus Spondylolysis, lumbar region Right lumbar radiculopathy HTN (hypertension) Adrenal insufficiency Pituitary adenoma Hyperactive gag reflex BRCA gene positive tested positive in Aug 2023 [place] Family history of BRCA gene mutation PTSD (post-traumatic stress disorder) Epidural lipomatosis Chronic left sacroiliac pain Benzodiazepine overdose hx Presence of cardiac device Loop recorder > placed at [facility]- last checked fall 2023 Hx of fracture of foot Sep 2022- right > cast since removed > still gets painful Fracture of fibula, right, closed Cerebral concussion May 2023 during seizure > no further issues Orthostatic hypotension Sensorineural hearing loss of both ears Rectal bleeding on occasion History of COVID-19 10/2021 - fatigue; resolved. Mitral valve regurgitation follows with Dr. kilgore Vertigo Lower extremity edema Elevated LFTs Bilateral hand pain Pituitary neoplasm Dx'ed in 2001- s/p surgical resection and XRT Repeat surgery in 2017 secondary to tumor regrowth at [facility] Prostate mass benign Bladder mass benign Surgical History Presence of Watchman left atrial appendage closure device (02/2024) eric History of arthroplasty of left knee (2014) S/P TURP (status post transurethral resection of prostate) History of lumbar fusion (07/2022) [facility] Jul 2022 History of cardiac cath (07/2021) 07/2021 - no stents- no mi - [facility]- follows with dr. kilgore S/P epidural steroid injection History of lithotripsy Status post right foot surgery replaced 5th metatarsal--hardware in place History of bladder surgery remove mass History of prostate surgery (2016) remove mass- not malignant History of colonoscopy History of esophagogastroduodenoscopy (EGD) History of tooth extraction History of wisdom tooth extraction History of brain surgery x2---2004 @ [facility] [place], 2018 @ [facility]--for brain tumors > caused epilepsy Family History Grandmother (Paternal) Family history of diabetes mellitus Aunt Family history of diabetes mellitus Uncle Family history of diabetes mellitus Father , at 85 years of age from dementia. Prostate cancer Heart disease Osteoarthritis Mother , at 84 years of age from acute VT. Cardiac disorder Grandmother (Maternal) Myocardial infarction Other Asthma Cancer Hypertension No family history of adverse response to anesthesia No family history of bleeding disorder Stroke Denies family history of Ovarian cancer Breast cancer Colorectal cancer Social History Smoking Status: Never smoker Tobacco Type: Smokeless Tobacco (Dip or Chew) Second Hand Exposure: No; Do You Dip or Chew Tobacco: No; Hx Alcohol Use: No Hx Substance Use: No Preferred Language: Czech Communication Ability: Effective Communication Ability Comment: Unable to obtain due to patient condition. Visual Impairment: Limited Hearing Ability: Normal Outreach Manager Required: No Beliefs That Will Affect Care: Holiness marital status: Single Current Living Situation: Family Current Living Situation Comment: and daughter in [place] current occupational status: disabled How many Children do You have: 3 How many Children do You have Comment: able to assist with care if needed Feels Safe at Home: Yes Childhood Exposure to Second-Hand Smoke: Yes (parents smoked) Diet: regular Diet Comment: going to be starting low carb/low calorie diet. caffeine: No (1/2 20 oz bottle of mountain dew. ) during the past year weight has: increased > 10 lbs Physical Activity Frequency: Daily Physical Activity Frequency Comment: walking, 1.5 miles daily. Seatbelt Use: always Do you think of yourself as: straight/heterosexual Gender Identity: Male Assistive Devices: Cane, Oxygen - at Night and Walker Allergies Allergies Allergy/AdvReac Type Severity Reaction Status Date / Time clindamycin Allergy Intermediate SWELLING Verified 06/13/25 11:21 Iodinated Contrast Media Allergy Intermediate face/eye Verified 06/13/25 11:21 swelling Quinolones Allergy Intermediate HIVES Verified 06/13/25 11:21 tomato AdvReac Unknown swelling Verified 06/13/25 11:21 Home Meds Home Medications Medication Instructions Recorded Confirmed mirtazapine 30 mg tablet (Remeron) 30 mg PO HS 06/23/22 06/16/25 glucagon 3 mg/actuation nasal 3 mg intranasal ONCE PRN Severe 04/06/24 06/16/25 spray (Baqsimi) Hypoglycemia aripiprazole 5 mg tablet 5 mg PO QAM 05/29/24 06/16/25 insulin glargine 100 unit/mL (3 12 unit subcut HS 07/19/24 06/16/25 mL) subcutaneous pen (Lantus Solostar U-100 Insulin) lorazepam 0.5 mg tablet 0.5 mg PO DAILY PRN Seizure 11/23/24 06/16/25 Activity clopidogrel 75 mg tablet (Plavix) 75 mg PO QPM 12/03/24 06/16/25 arformoterol 15 mcg/2 mL solution 2 ml inhalation BID 02/26/25 07/27/25 for nebulization (Brovana) Oxygen Home 01/30/25 06/13/25 magnesium oxide 400 mg (241.3 mg 400 mg PO HS 03/01/25 06/16/25 magnesium) tablet quetiapine 50 mg tablet,extended 50 mg PO QAM 03/19/25 06/16/25 release 24 hr venlafaxine 150 mg 150 mg PO QAM 03/19/25 06/16/25 capsule,extended release 24 hr propranolol 120 mg capsule,24 120 mg PO HS 03/26/25 06/16/25 hr,extended release prazosin 5 mg capsule 5 mg PO HS 04/05/25 06/16/25 aspirin 81 mg capsule 81 mg PO QPM 05/03/25 06/16/25 budesonide 0.5 mg/2 mL suspension 0.5 mg inhalation QPM 05/03/25 06/16/25 for nebulization divalproex 500 mg tablet,delayed 1,000 mg PO QAM 05/03/25 06/16/25 release duloxetine 60 mg capsule,delayed 60 mg PO QAM 05/03/25 06/16/25 release somatropin 5 mg/1.5 mL (3.3 mg/mL) 3 mg subcut QPM 05/29/25 06/16/25 subcutaneous pen injector (Norditropin FlexPro) doxycycline hyclate 100 mg capsule 100 mg PO BID 06/12/25 06/16/25 sumatriptan 1 dose PO UD PRN Migraine Headache 06/12/25 06/16/25 tirzepatide 5 mg/0.5 mL 5 mg subcut WK 06/12/25 06/16/25 subcutaneous pen injector (Mounjaro) hydrocortisone 10 mg tablet 10 - 20 mg PO UD 06/13/25 06/16/25 Previous Rx's Medication Instructions Recorded fluticasone propionate 50 1 spray intranasal HS PRN allergy 03/16/23 mcg/actuation nasal symptoms #16 grams spray,suspension (Flonase Allergy Relief) [employer] Rosalie 2 [place] (flash #1 ea 05/13/23 glucose scanning reader) blood sugar diagnostic (IPM [place] #150 ea 11/22/23 Verio test strips) blood-glucose meter ([employer] #1 ea 11/22/23 Verio Reflect Meter) insulin syringe-needle U-100 1 mL #300 ea 11/22/23 30 gauge x 1/2" (BD Insulin Syringe Ultra-Fine) lancets 33 gauge (OneTouch Delica #150 ea 11/22/23 Plus Lancet) albuterol sulfate 90 mcg/actuation 2 inh inhalation Q6H PRN shortness 02/24/24 aerosol inhaler (Ventolin HFA) of breath or wheezing #6.7 grams ipratropium 0.5 mg-albuterol 3 mg 3 ml inhalation QID PRN wheezing 07/31/24 (2.5 mg base)/3 mL nebulization #90 mL soln nebulizers (Compact Compressor #1 ea 07/31/24 Nebulizer) Botox 200 unit injection See Rx Instructions IM .COMPLEX #1 09/18/24 (onabotulinumtoxinA) ea rosuvastatin 20 mg tablet 20 mg PO QAM #90 tabs 09/19/24 pen needle, diabetic 32 gauge x #100 ea 10/23/24 5/32" (BD Vy 2nd Gen Pen Needle) bumetanide 1 mg tablet 1 mg PO QAM #30 tabs 10/26/24 vitamin B complex (Vitamins B 1 cap PO QAM #30 caps 10/26/24 Complex capsule) levetiracetam 1,000 mg tablet 1,000 mg PO Q12H #60 tabs 11/26/24 metoprolol succinate 25 mg 25 mg PO HS #90 tabs 11/30/24 tablet,extended release 24 hr lacosamide 150 mg tablet 150 mg PO BID #60 tabs 12/26/24 metformin 1,000 mg tablet 1,000 mg PO BID #180 tabs 02/26/25 testosterone 2 pump topical PM #75 grams 03/18/25 acetylcysteine 200 mg/mL (20 %) 2 ml inhalation BID PRN Chest 03/26/25 solution congestion #100 mL cholecalciferol (vitamin D3) 50 50 mcg PO QPM #90 caps 03/26/25 mcg (2,000 unit) capsule sodium chloride 7 % for 1 inh inhalation BID #240 mL 03/26/25 nebulization duloxetine 30 mg capsule,delayed 30 mg PO HS #30 caps 04/12/25 release ondansetron 8 mg disintegrating 8 mg PO Q8H PRN nausea and 04/29/25 tablet vomiting #30 tabs FreeStyle Rosalie 2 Sensor (flash #6 ea 05/06/25 glucose sensor) levothyroxine 150 mcg tablet 150 mcg PO DAILYBB #30 tabs 05/06/25 (Synthroid) desmopressin 0.2 mg tablet 0.4 mg (2 x 0.2 mg) PO BID #120 05/16/25 tabs naloxone 4 mg/actuation nasal 1 spray intranasal ONCE PRN opioid 05/18/25 spray (Narcan) overdose #2 ea oxycodone 5 mg tablet 15 mg (3 x 5 mg) PO Q4H PRN pain 05/18/25 #84 tabs FreeStyle Rosalie 2 Plus Sensor #6 ea 06/04/25 (blood-glucose sensor) ascorbic acid (vitamin C) 250 mg 250 mg PO BID #60 tabs 06/13/25 tablet ferrous sulfate 325 mg (65 mg 325 mg PO BID #60 tabs 06/13/25 iron) tablet lisinopril 10 mg tablet 10 mg PO DAILY #30 tabs 06/13/25 mupirocin 2 % topical ointment 1 applic topical BID #22 grams 06/13/25 dutasteride 0.5 mg capsule 0.5 mg PO QAM #90 caps 06/19/25 Results & Data (ED) Vital Signs Vital Signs - 24 hr 06/16/25 19:19 06/16/25 19:23 06/16/25 19:55 Temperature 36.9 C Temperature Source Oral Pulse Rate 90 89 Pulse Rate [Apical] Respiratory Rate 16 Respiratory Effort / Characteristics Non-Labored Spontaneous Respiratory Pattern Regular Blood Pressure 124/72 Blood Pressure [Right Arm] Blood Pressure Mean 89 Blood Pressure Mean [Right Arm] Blood Pressure Position Lying Blood Pressure Position [Right Arm] Pulse Oximetry 98 100 Oxygen Delivery Method Non-rebreather Room Air Non-rebreather Oxygen Flow Rate 15 15 Sepsis Recent Fever Within 48 Hours No Sepsis New/Unexplained Change in Mental Status Yes Sepsis Action Taken by Nursing No Action Required Oxygen Flow Rate - Titration 0 Pulse Oximetry Post Tiitration 100 06/16/25 20:00 06/16/25 20:23 Temperature Temperature Source Pulse Rate 90 Pulse Rate [Apical] 89 Respiratory Rate 17 16 Respiratory Effort / Characteristics Non-Labored Spontaneous Respiratory Pattern Blood Pressure Blood Pressure [Right Arm] 110/83 Blood Pressure Mean Blood Pressure Mean [Right Arm] 92 Blood Pressure Position Blood Pressure Position [Right Arm] Lying Pulse Oximetry 93 93 Oxygen Delivery Method Room Air Room Air Oxygen Flow Rate Sepsis Recent Fever Within 48 Hours Sepsis New/Unexplained Change in Mental Status Sepsis Action Taken by Nursing Oxygen Flow Rate - Titration Pulse Oximetry Post Tiitration Laboratory Data 06/18/25 14:12 06/18/25 14:12 Lab Results 06/16/25 06/16/25 06/16/25 Range/Units 19:19 19:32 19:34 WBC 6.22 (4.8-10.8) K/ul RBC 3.38 L (4.70-6.10) M/uL Hgb 9.8 L (14.0-18.0) g/dl POC Hgb 10.2 L (14.0-18.0) g/dl Hct 29.5 L (42.0-52.0) % POC Hct 30 L (42-52) % MCV 87.3 (80.0-100.0) fL MCH 29.0 (25.0-34.0) pg MCHC 33.2 (32.0-36.0) g/dL RDW Std Deviation 46.4 H (36.4-46.3) fL RDW Coeff of Yanira 14.8 H (11.5-14.5) % Plt Count 194 (130-400) K/uL MPV 9.1 L (9.4-12.4) fL Immature Gran % (Auto) 1.1 % Neut % (Auto) 54.1 % Lymph % (Auto) 31.8 % [place] % (Auto) 10.0 % Eos % (Auto) 2.4 % Baso % (Auto) 0.6 % Neut # (Auto) 3.36 (1.40-6.50) K/uL Lymph # (Auto) 1.98 (1.20-3.40) K/uL [place] # (Auto) 0.62 H (0.11-0.59) K/uL Eos # (Auto) 0.15 (0.00-0.50) K/uL Baso # (Auto) 0.04 (0.00-0.20) K/uL Immature Gran # (Auto) 0.07 (0.01-0.20) K/uL PT Cancelled INR Cancelled APTT Cancelled PTT Ratio Cancelled VBG pH 7.29 L (7.36-7.41) VBG pCO2 49 (38-50) mmHg VBG pO2 28 mmHg VBG HCO3 24 mmol/L VBG O2 Saturation < 60.0 % VBG Base Excess -3.4 mEq/L POC Sodium 135 (135-144) mmol/L Sodium 136 (136-145) mmol/L POC Potassium 4.8 (3.3-5.0) mmol/L Potassium 4.6 (3.5-5.1) mmol/L POC Chloride 100 L (101-112) mmol/L Chloride 100 (98-107) mmol/L Carbon Dioxide 24 (21-32) mmol/L POC Total CO2 24 (24-31) mmol/L Anion Gap 12 H (3-11) POC Anion Gap 18.0 (16-25) mmol/L POC BUN 12 (7-18) mg/dl BUN 11 (6-23) mg/dl Creatinine 2.81 H (0.6-1.4) mg/dl POC Creatinine 3.0 H (0.6-1.3) mg/dl Est Cr Clr Drug Dosing 36.5 ml/min eGFR 25.57 BUN/Creatinine Ratio 3.9 L (10-20) Glucose 128 H (70-99(Fasting)) mg/dl POC Glucose 158 H (70-99) mg/dl POC Glucose (other) 125 H (70-99) mg/dl Lactate 3.5 H* (0.4-2.0) mmol/L Calcium 9.3 (8.6-10.3) mg/dl POC Ioniz Calcium Jeny 1.17 (1.12-1.32) mmol/l Phosphorus 5.9 H (2.5-4.9) mg/dl Magnesium 1.4 L (1.7-2.4) mg/dl Total Bilirubin 0.4 (0.2-1.0) mg/dl AST 31 (13-39) U/L ALT 26 (7-52) U/L Alkaline Phosphatase 58 (34-104) U/L Total Creatine Kinase 42 (30-223) U/L Total Protein 6.7 (6.0-8.3) gm/dl Albumin 4.2 (3.4-5.0) gm/dl Globulin 2.5 (2.5-4.0) gm/dl Albumin/Globulin Ratio 1.7 (0.9-2) Urine Color Urine Appearance (Clear) Urine pH (4.5-7.5) Ur Specific [place] (1.000-1.030) Urine Protein (Negative) Urine Glucose (UA) (Negative) Urine Ketones (Negative) Urine Blood (Negative) Urine Nitrite (Negative) Urine Bilirubin (Negative) Urine Urobilinogen (Negative) Ur Leukocyte Esterase (Negative) Urine RBC (0-2) /hpf Urine WBC (0-5) /hpf Ur Epithelial Cells (0-2) /hpf Urine Bacteria (None Seen) Hyaline Casts (None Presnt) /lpf Urine Mucus (None Prsent) Urine Comment Urine Opiates Screen (Neg) U Codeine Confrm GC/MS (<50) ng/mL Ur Morphine (GC/MS) (<50) ng/mL Ur Hydrocodone (GC/MS) (<50) ng/mL Ur Norhydrocodone (<50) ng/mL Ur Noroxycodone (<50) ng/mL Urine Oxycodone (GC/MS) (<50) ng/mL U Oxymorphone GC/MS (<50) ng/mL Ur Methadone, Qual (Neg) Ur Hydromorphone (GC/MS) (<50) ng/mL Urine Fentanyl Screen (Neg) Urine Barbiturates (Neg) Ur Phencyclidine (PCP) (Neg) U Amphetamin/Meth Scrn (Neg) MDMA (Ecstasy) Screen (Neg) U Benzodiazepines Scrn (Neg) Ur Cocaine Metabolite (Neg) U Marijuana (THC) Screen (Neg) Drug Screen Comment Ethyl Alcohol mg/dL < 10.0 (<10.0) mg/dl 06/16/25 06/16/25 Range/Units 20:25 21:30 WBC (4.8-10.8) K/ul RBC (4.70-6.10) M/uL Hgb (14.0-18.0) g/dl POC Hgb (14.0-18.0) g/dl Hct (42.0-52.0) % POC Hct (42-52) % MCV (80.0-100.0) fL MCH (25.0-34.0) pg MCHC (32.0-36.0) g/dL RDW Std Deviation (36.4-46.3) fL RDW Coeff of Yanira (11.5-14.5) % Plt Count (130-400) K/uL MPV (9.4-12.4) fL Immature Gran % (Auto) % Neut % (Auto) % Lymph % (Auto) % [place] % (Auto) % Eos % (Auto) % Baso % (Auto) % Neut # (Auto) (1.40-6.50) K/uL Lymph # (Auto) (1.20-3.40) K/uL [place] # (Auto) (0.11-0.59) K/uL Eos # (Auto) (0.00-0.50) K/uL Baso # (Auto) (0.00-0.20) K/uL Immature Gran # (Auto) (0.01-0.20) K/uL PT 11.3 INR 1.0 APTT 23 PTT Ratio 0.9 VBG pH (7.36-7.41) VBG pCO2 (38-50) mmHg VBG pO2 mmHg VBG HCO3 mmol/L VBG O2 Saturation % VBG Base Excess mEq/L POC Sodium (135-144) mmol/L Sodium (136-145) mmol/L POC Potassium (3.3-5.0) mmol/L Potassium (3.5-5.1) mmol/L POC Chloride (101-112) mmol/L Chloride (98-107) mmol/L Carbon Dioxide (21-32) mmol/L POC Total CO2 (24-31) mmol/L Anion Gap (3-11) POC Anion Gap (16-25) mmol/L POC BUN (7-18) mg/dl BUN (6-23) mg/dl Creatinine (0.6-1.4) mg/dl POC Creatinine (0.6-1.3) mg/dl Est Cr Clr Drug Dosing ml/min eGFR BUN/Creatinine Ratio (10-20) Glucose (70-99(Fasting)) mg/dl POC Glucose (70-99) mg/dl POC Glucose (other) (70-99) mg/dl Lactate (0.4-2.0) mmol/L Calcium (8.6-10.3) mg/dl POC Ioniz Calcium Jeny (1.12-1.32) mmol/l Phosphorus (2.5-4.9) mg/dl Magnesium (1.7-2.4) mg/dl Total Bilirubin (0.2-1.0) mg/dl AST (13-39) U/L ALT (7-52) U/L Alkaline Phosphatase (34-104) U/L Total Creatine Kinase (30-223) U/L Total Protein (6.0-8.3) gm/dl Albumin (3.4-5.0) gm/dl Globulin (2.5-4.0) gm/dl Albumin/Globulin Ratio (0.9-2) Urine Color Yellow Urine Appearance Clear (Clear) Urine pH 5.5 (4.5-7.5) Ur Specific [place] 1.025 (1.000-1.030) Urine Protein 1+ H (Negative) Urine Glucose (UA) Negative (Negative) Urine Ketones Negative (Negative) Urine Blood 1+ H (Negative) Urine Nitrite Negative (Negative) Urine Bilirubin Negative (Negative) Urine Urobilinogen Negative (Negative) Ur Leukocyte Esterase Negative (Negative) Urine RBC 6-10 H (0-2) /hpf Urine WBC 6-10 H (0-5) /hpf Ur Epithelial Cells 11-20 H (0-2) /hpf Urine Bacteria 1+ H (None Seen) Hyaline Casts Present A (None Presnt) /lpf Urine Mucus Present A (None Prsent) Urine Comment Urine Opiates Screen Pos H (Neg) U Codeine Confrm GC/MS NEGATIVE (<50) ng/mL Ur Morphine (GC/MS) NEGATIVE (<50) ng/mL Ur Hydrocodone (GC/MS) NEGATIVE (<50) ng/mL Ur Norhydrocodone NEGATIVE (<50) ng/mL Ur Noroxycodone 1610 H (<50) ng/mL Urine Oxycodone (GC/MS) 2450 H (<50) ng/mL U Oxymorphone GC/MS 1190 H (<50) ng/mL Ur Methadone, Qual Neg (Neg) Ur Hydromorphone (GC/MS) NEGATIVE (<50) ng/mL Urine Fentanyl Screen Neg (Neg) Urine Barbiturates Neg (Neg) Ur Phencyclidine (PCP) Neg (Neg) U Amphetamin/Meth Scrn Neg (Neg) MDMA (Ecstasy) Screen Neg (Neg) U Benzodiazepines Scrn Neg (Neg) Ur Cocaine Metabolite Neg (Neg) U Marijuana (THC) Screen Neg (Neg) Drug Screen Comment SEE NOTE Ethyl Alcohol mg/dL (<10.0) mg/dl Administered Medications Discontinued Medications Aripiprazole (Aripiprazole 5 Mg Tab) 5 mg PO QAM [facility] [place] Stop: 07/17/25 08:59 Last Admin: 06/18/25 08:28 Dose: 5 mg Documented By: Admin: 06/17/25 07:55 Dose: 5 mg Documented By: FRANNIE Aspirin (Aspirin 81 Mg Ectab) 81 mg PO QPM [facility] Stop: 07/17/25 20:59 Last Admin: 06/17/25 20:18 Dose: 81 mg Documented By: ZONIA Budesonide (Budesonide 0.5 Mg/2 Ml Vial (Pulmicort)) 0.5 mg INH QPM [facility] [place] Stop: 07/17/25 20:59 Last Admin: 06/17/25 17:46 Dose: 0.5 mg Documented By: KOKO Clopidogrel Bisulfate (Clopidogrel Bisulfate 75 Mg Tab) 75 mg PO QPM [facility] Stop: 07/17/25 20:59 Last Admin: 06/17/25 20:19 Dose: 75 mg Documented By: ZONIA Desmopressin Acetate (Desmopressin Acetate 0.1 Mg Tab) 0.4 mg PO BID [facility] [place] Stop: 07/17/25 08:59 Last Admin: 06/18/25 08:28 Dose: 0.4 mg Documented By: Admin: 06/17/25 20:17 Dose: 0.4 mg Documented By: Admin: 06/17/25 07:56 Dose: 0.4 mg Documented By: FRANNIE Divalproex Sodium (Divalproex Delay Release 500 Mg Tab) 1,000 mg PO QAM [facility] [place] Stop: 07/17/25 08:59 Last Admin: 06/18/25 08:29 Dose: 1,000 mg Documented By: Admin: 06/17/25 07:55 Dose: 1,000 mg Documented By: FRANNIE Duloxetine HCl (Duloxetine Hcl 60 Mg Cap) 60 mg PO QAM [facility] [place] Stop: 07/17/25 08:59 Last Admin: 06/18/25 08:27 Dose: 60 mg Documented By: Admin: 06/17/25 07:55 Dose: 60 mg Documented By: FRANNIE Duloxetine HCl (Duloxetine Hcl 30 Mg Cap) 30 mg PO HS [facility] Stop: 07/17/25 20:59 Last Admin: 06/17/25 20:18 Dose: 30 mg Documented By: ZONIA Formoterol Fumarate (Formoterol 20 Mcg/2 Ml Vial) 20 mcg INH BIDR [facility] Stop: 07/17/25 06:59 Last Admin: 06/18/25 07:23 Dose: 20 mcg Documented By: [id number] Admin: 06/17/25 17:47 Dose: 20 mcg Documented By: Admin: 06/17/25 07:04 Dose: 20 mcg Documented By: KOKO Hydrocortisone (Hydrocortisone 10 Mg Tab) 20 mg PO QAM [facility] Stop: 07/17/25 08:59 Last Admin: 06/18/25 08:27 Dose: 20 mg Documented By: Admin: 06/17/25 07:56 Dose: 20 mg Documented By: FRANNIE Sodium Chloride (Nss) 1,000 mls @ 999 mls/hr IV .Q1H1M STA Stop: 06/16/25 20:23 Last Infusion: 06/16/25 20:39 Dose: Infused Documented By: Admin: 06/16/25 19:30 Dose: 999 mls/hr Documented By: BERNARDINO Lactated Ringer's (Lr) 1,000 mls @ 125 mls/hr IV .Q8H [facility] Stop: 06/17/25 17:12 Last Infusion: 06/17/25 18:39 Dose: Infused Documented By: Admin: 06/17/25 09:20 Dose: 125 mls/hr Documented By: Infusion: 06/17/25 09:20 Dose: Infused Documented By: Admin: 06/17/25 02:15 Dose: 125 mls/hr Documented By: CLIVE Magnesium Sulfate/Dextrose (Magnesium Sulfate / D5w) 1 gm in 100 mls @ 50 mls/hr IV Q2H [facility] Stop: 06/17/25 18:14 Last Infusion: 06/17/25 19:46 Dose: Infused Documented By: Admin: 06/17/25 17:26 Dose: 50 mls/hr Documented By: Infusion: 06/17/25 17:26 Dose: Infused Documented By: Admin: 06/17/25 15:22 Dose: 50 mls/hr Documented By: Infusion: 06/17/25 15:21 Dose: Infused Documented By: Admin: 06/17/25 13:15 Dose: 50 mls/hr Documented By: FRANNIE Piperacillin Sod/Tazobactam Sod (Zosyn) 4.5 gm in 100 mls @ 200 mls/hr IV NOW ONE; Protocol Stop: 06/17/25 22:50 Last Infusion: 06/17/25 23:43 Dose: Infused Documented By: Admin: 06/17/25 23:13 Dose: 200 mls/hr Documented By: ZONIA Insulin Aspart (Insulin Aspart Per Unit Charge) 0 units SC ACHS [facility] [place] Stop: 07/17/25 07:29 Last Admin: 06/18/25 12:26 Dose: Not Given Documented By: Admin: 06/18/25 09:17 Dose: Not Given Documented By: Admin: 06/17/25 22:05 Dose: Not Given Documented By: ZONIA Co-signed By: JACKELYN Admin: 06/17/25 17:30 Dose: Not Given Documented By: Admin: 06/17/25 12:32 Dose: Not Given Documented By: Admin: 06/17/25 09:18 Dose: Not Given Documented By: FRANNIE Insulin Glargine (Lantus Per Unit Charge) 5 units SQ BID [facility] [place] Stop: 07/17/25 08:59 Last Admin: 06/18/25 08:43 Dose: 5 units Documented By: LUCÍA Co-signed By: CRIS Admin: 06/17/25 22:05 Dose: 5 units Documented By: ZONIA Co-signed By: JACKELYN Admin: 06/17/25 09:21 Dose: 5 units Documented By: FRANNIE Co-signed By: CRIS Lacosamide (Lacosamide 50 Mg Tablet) 150 mg PO BID [facility] [place] Stop: 07/17/25 08:59 Last Admin: 06/18/25 08:41 Dose: 150 mg Documented By: Admin: 06/17/25 20:17 Dose: 150 mg Documented By: Admin: 06/17/25 08:03 Dose: 150 mg Documented By: FRANNIE Levetiracetam (Levetiracetam 500 Mg Tab) 1,000 mg PO Q12H [facility] [place] Stop: 07/17/25 08:59 Last Admin: 06/18/25 08:28 Dose: 1,000 mg Documented By: Admin: 06/17/25 20:19 Dose: 1,000 mg Documented By: Admin: 06/17/25 07:55 Dose: 1,000 mg Documented By: FRANNIE Levothyroxine Sodium (Levothyroxine Sodium 150 Mcg Tablet) 150 mcg PO DAILY [facility] Stop: 07/17/25 06:29 Last Admin: 06/18/25 06:30 Dose: 150 mcg Documented By: Admin: 06/17/25 05:59 Dose: 150 mcg Documented By: CLIVE Metoprolol Succinate (Metoprolol Succ 25mg Ext Rel Tab) 25 mg PO [facility] Stop: 07/17/25 20:59 Last Admin: 06/17/25 20:18 Dose: 25 mg Documented By: ZONIA Mirtazapine (Mirtazapine Tab 15 Mg Tab) 30 mg PO [facility] Stop: 07/17/25 20:59 Last Admin: 06/17/25 20:18 Dose: 30 mg Documented By: ZONIA Prazosin HCl (Prazosin Hcl 1 Mg Cap) 5 mg PO [facility] Stop: 07/17/25 20:59 Last Admin: 06/17/25 20:18 Dose: 5 mg Documented By: ZONIA Propranolol HCl (Propranolol Hcl 60 Mg [place]) 120 mg PO [facility] Stop: 07/17/25 20:59 Last Admin: 06/17/25 20:18 Dose: 120 mg Documented By: ZONIA Quetiapine Fumarate (Quetiapine Fumarate 50 Mg Tabcr) 50 mg PO [facility] Stop: 07/17/25 08:59 Last Admin: 06/18/25 08:30 Dose: 50 mg Documented By: Admin: 06/17/25 07:55 Dose: 50 mg Documented By: FRANNIE Rosuvastatin Calcium (Rosuvastatin Calcium 20 Mg Tab) [facility] [place] [place]: 07/17/25 08:59 Last Admin: 06/18/25 08:28 Dose: 20 mg Documented By: Admin: 06/17/25 07:56 Dose: 20 mg Documented By: FRANNIE Sodium Chloride (Sodium Chlor 7% 4 Ml Neb) 4 ml INH BIDR [facility] [place] Stop: 07/17/25 06:59 Last Admin: 06/18/25 07:23 Dose: 4 ml Documented By: [id number] Admin: 06/17/25 17:46 Dose: 4 ml Documented By: Admin: 06/17/25 07:04 Dose: 4 ml Documented By: KOKO Venlafaxine HCl (Venlafaxine Hcl Xr 150 Mg Capxr) 150 mg PO QAM [facility] [place] Stop: 07/17/25 08:59 Last Admin: 06/18/25 08:27 Dose: 150 mg Documented By: Admin: 06/17/25 07:55 Dose: 150 mg Documented By: [facility] Discharge Plan Visit Data Chief Complaint: Altered Mental Status Stated Complaint: AMS ED Provider: Sonu Cobos Discharge Problem: Acute encephalopathy, Acidosis, lactic, Hyperphosphatemia, Hypomagnesemia, Chronic anemia, Abrasion of knee, QUENTIN (acute kidney injury) Patient Disposition: Admitted As Inpatient Condition: Fair Discharge Instructions Interventions: ED Discharge Assessment Last Done: 06/16/25 23:30
[2025-06-16] MEDS: SODIUM CHLORIDE 0.9% 1,000 ML IV STA (19:30)
[2025-06-16 19:49] LABS: Base Excess VBG -3.4 mEq/L; HCO3 VBG 24 mmol/L; Oxygen Saturation VBG < 60.0 %; PCO2 VBG 49 mmHg (38-50); PO2 VBG 28 mmHg; pH VBG 7.29 (7.36-7.41)
[2025-06-16 20:09] LABS: Hematocrit (blood only) 29.5 % (42.0-52.0); Hemoglobin 9.8 g/dl (14.0-18.0); Immature Granulocytes # (auto) 0.07 K/uL (0.01-0.20); Immature Granulocytes % (auto) 1.1 %; Mean Corpuscular Hemoglobin 29.0 pg (25.0-34.0); Mean Corpuscular Volume 87.3 fL (80.0-100.0); Platelet Count 194 K/uL (130-400); RDW Standard Deviation 46.4 fL (36.4-46.3); Red Blood Count 3.38 M/uL (4.70-6.10); White Blood Count 6.22 K/ul (4.8-10.8)
[2025-06-16 20:19] LABS: Alanine Aminotransferase 26.0 U/L (7-52); Albumin Globulin Ratio 1.7 (0.9-2); Alkaline Phosphatase 58.0 U/L (34-104); Anion Gap 12.0 (3-11); Bilirubin,Total 0.4 mg/dl (0.2-1.0); Blood Urea Nitrogen 11.0 mg/dl (6-23); Calcium 9.3 mg/dl (8.6-10.3); Carbon Dioxide 24.0 mmol/L (21-32); Chloride 100.0 mmol/L (98-107); Creatine Kinase 42.0 U/L (30-223); Creatinine Clr Calc Pharmacy 36.5 ml/min; Globulin 2.5 gm/dl (2.5-4.0); Glucose 128.0 mg/dl (70-99(Fasting)); Magnesium 1.4 mg/dl (1.7-2.4); Potassium 4.6 mmol/L (3.5-5.1); Sodium 136.0 mmol/L (136-145); Total Protein 6.7 gm/dl (6.0-8.3)
[2025-06-16 21:22] LABS: INR 1.0 (0.9-1.1); Partial Thromboplastin Time 23 Seconds (21-31); Prothrombin Time 11.3 Seconds (9.0-12.0)
--- NOTE | 2025-06-16 21:23 | CT Scan Report ---
Exam(s): CT HEAD Without Contrast EXAM: CT Head Without Intravenous Contrast CLINICAL HISTORY: Altered mental status and fall TECHNIQUE: Axial computed tomography images of the head/brain without intravenous contrast. CTDI is 36.9 mGy and DLP is 625.8 mGy-cm. Automated exposure control was utilized for the study. A dose lowering technique was utilized adhering to the principles of ALARA. COMPARISON: CT head 06/12/2025 FINDINGS: Brain: No intracranial hemorrhage, mass-effect or midline shift. No abnormal extra axial fluid. No evidence of acute infarct. 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 Incidentally noted patrick cisterna magna. Ventricles: Unremarkable. No ventriculomegaly. Bones/joints: Unremarkable. No acute fracture. Soft tissues: Unremarkable. Sinuses: Unremarkable as visualized. No acute sinusitis. Mastoid air cells: Unremarkable as visualized. No mastoid effusion. IMPRESSION: No acute intracranial finding. Electronically signed by: Eliana Pitts MD 06/16/25 21:22 PM
--- NOTE | 2025-06-16 21:38 | History & Physical Report ---
Date of Service June 16, 2025 Assessment & Plan (1) QUENTIN (acute kidney injury): (2) Psychogenic nonepileptic seizure: (3) Diabetes: (4) Hypertension: (5) COPD (chronic obstructive pulmonary disease): (6) Anxiety: (7) Bipolar 1 disorder: (8) Hypothyroidism: Plan 54yo male with multiple medical comorbidities presenting with episode of unresponsiveness that occurred earlier today lasting approximately 20 minutes. Patient also with QUENTIN on labs. #QUENTIN - Cr=2.81, increased from 1.13 most recently 06/13/25. Patient reports decreased oral intake and poor appetite. Electrolytes are acceptable. Patient reports difficulty passing urine. Possibly some retention vs pre-renal etiology contributing -Admit to medical with telemetry -Welsh in place, monitor strict I/Os -Check CK -Avoid nephrotoxic agents, renal dosing where needed -LR at 125mL/hr x 2L ordered #Psychogenic nonepileptic seizure - possibly source of patient's episode of unresponsiveness earlier today. He has had a lot of increased family stress of late as his daughter recently told hi that she didn't want to associate with him anymore. Patient is obviously distressed about this but does not readily admit so - states that he doesn't want to look "weak" or "crazy". -Maintain seizure precautions #Diabetes - well controlled. Last [id number]=4.4 on 06/13/25. -Lantus 5u BID -ISS #History of MRSA bacteremia - patient completed course of antibiotics. Repeat blood cultures from 05/30/25 remain negative to date. Per protocol, hospital needs two sets of negative blood cultures to clear patient from isolation -Repeat blood cultures x 2 sets -No antibiotics for now #Adrenal insufficiency - HD stable -Continue Hydrocortisone at home dose -Continue Desmopressin #Ambulatory dysfunction -PT/OT evaluation appreciated -Maintain fall precautions #COPD -Hypertonic nebs BID -Formoterol -Budesonide -Duonebs -Albuterol #Hypertension -Continue Metoprolol 25mg po qHS #Hyperlipidemia -Continue Crestor -Awaiting CK results - will need to DC Crestor if elevated value #Hypothyroid -Continue Sythroid #Seizure Disorder -Continue Keppra -Continue Vimpat -Continue Divalproex #Anxiety/Depression/Bipolar 1/ PTSD/Mental health -Encourage patient to resume care with Psychiatry outpatient - may be of use to him during this stressful family time. 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 Patient recently admitted to [facility] 05/29 - 06/05 with sepsis secondary to cellulitis of the left knee. He had blood cultures from 05/29/25 that were POSITIVE for MRSA. He was treated with Daptomycin while inpatient and ultimately discharged home on Doxycycline 100mg po BID x 7 days to complete course. Repeat blood cultures from 05/30/25 NGTD/Final. Patient ultimately discharged to [facility] and then returned home. Patient has not been doing well at home overall. He has had generalized weakness, falls. Today patient was at a family's house and developed a severe sharp/stabbing headache. He came home and went to his chair. His girlfriend then found him to be minimally responsive. She tried to sternal rub him but he did not wake up. She reports that he was staring off in a daze for approximately 20 minutes. No tonic-clonic activity, blinking, incontinence. EMS was notified and patient woke up when they arrived - no medications given. Girlfriend does report that patient was confused and sleepy after he woke up. He is now back to baseline. Patient reports poor appetite with decreased oral intake for the last several weeks. Mild SOB and SCOTT at baseline, largely unchanged. Patient has had some increased stress and anxiety in his personal life of late - his daughter told him that she didn't want anything to do with him anymore. Allergies Allergy/AdvReac Type Severity Reaction Status Date / Time clindamycin Allergy Intermediate SWELLING Verified 06/13/25 11:21 Iodinated Contrast Media Allergy Intermediate face/eye Verified 06/13/25 11:21 swelling Quinolones Allergy Intermediate HIVES Verified 06/13/25 11:21 tomato AdvReac Unknown swelling Verified 06/13/25 11:21 Home Medications Medication Instructions Recorded Confirmed Type mirtazapine 30 mg tablet (Remeron) 30 mg PO HS 06/23/22 06/16/25 History fluticasone propionate 50 1 spray intranasal HS PRN allergy 03/16/23 06/16/25 Rx mcg/actuation nasal symptoms #16 grams spray,suspension (Flonase Allergy Relief) FreeStyle Rosalie 2 [place]on[place] (flash #1 ea 05/13/23 06/13/25 Rx glucose scanning reader) blood sugar diagnostic (PacketFrontTouch #150 ea 11/22/23 06/13/25 Rx Verio test strips) blood-glucose meter (Univauch #1 ea 11/22/23 06/13/25 Rx Verio Reflect Meter) insulin syringe-needle U-100 1 mL #300 ea 11/22/23 06/13/25 Rx 30 gauge x 1/2" (BD Insulin Syringe Ultra-Fine) lancets 33 gauge (OneTouch Delica #150 ea 11/22/23 06/13/25 Rx Plus Lancet) albuterol sulfate 90 mcg/actuation 2 inh inhalation Q6H PRN shortness 02/24/24 06/16/25 Rx aerosol inhaler (Ventolin HFA) of breath or wheezing #6.7 grams dutasteride 0.5 mg capsule 0.5 mg PO QAM 04/06/24 06/16/25 History glucagon 3 mg/actuation nasal 3 mg intranasal ONCE PRN Severe 04/06/24 06/16/25 History spray (Baqsimi) Hypoglycemia aripiprazole 5 mg tablet 5 mg PO QAM 05/29/24 06/16/25 History insulin glargine 100 unit/mL (3 12 unit subcut HS 07/19/24 06/16/25 History mL) subcutaneous pen (Lantus Solostar U-100 Insulin) ipratropium 0.5 mg-albuterol 3 mg 3 ml inhalation QID PRN wheezing 07/31/24 06/16/25 Rx (2.5 mg base)/3 mL nebulization #90 mL soln nebulizers (Compact Compressor #1 ea 07/31/24 06/13/25 Rx Nebulizer) Botox 200 unit injection See Rx Instructions IM .COMPLEX #1 09/18/24 06/16/25 Rx (onabotulinumtoxinA) ea rosuvastatin 20 mg tablet 20 mg PO QAM #90 tabs 09/19/24 06/16/25 Rx pen needle, diabetic 32 gauge x #100 ea 10/23/24 06/13/25 Rx 5/32" (BD Vy 2nd Gen Pen Needle) bumetanide 1 mg tablet 1 mg PO QAM #30 tabs 10/26/24 06/13/25 Rx vitamin B complex (Vitamins B 1 cap PO QAM #30 caps 10/26/24 06/16/25 Rx Complex capsule) lorazepam 0.5 mg tablet 0.5 mg PO DAILY PRN Seizure 11/23/24 06/16/25 History Activity levetiracetam 1,000 mg tablet 1,000 mg PO Q12H #60 tabs 11/26/24 06/16/25 Rx metoprolol succinate 25 mg 25 mg PO HS #90 tabs 11/30/24 06/16/25 Rx tablet,extended release 24 hr clopidogrel 75 mg tablet (Plavix) 75 mg PO QPM 12/03/24 06/16/25 History lacosamide 150 mg tablet 150 mg PO BID #60 tabs 12/26/24 06/16/25 Rx arformoterol 15 mcg/2 mL solution 2 ml inhalation BID 01/16/25 06/16/25 History for nebulization (Brovana) Oxygen Home 01/30/25 06/13/25 History metformin 1,000 mg tablet 1,000 mg PO BID #180 tabs 02/26/25 06/16/25 Rx magnesium oxide 400 mg (241.3 mg 400 mg PO HS 03/01/25 06/16/25 History magnesium) tablet testosterone 2 pump topical PM #75 grams 03/18/25 06/16/25 Rx quetiapine 50 mg tablet,extended 50 mg PO QAM 03/19/25 06/16/25 History release 24 hr venlafaxine 150 mg 150 mg PO QAM 03/19/25 06/16/25 History capsule,extended release 24 hr acetylcysteine 200 mg/mL (20 %) 2 ml inhalation BID PRN Chest 03/26/25 06/16/25 Rx solution congestion #100 mL cholecalciferol (vitamin D3) 50 50 mcg PO QPM #90 caps 03/26/25 06/16/25 Rx mcg (2,000 unit) capsule propranolol 120 mg capsule,24 120 mg PO HS 03/26/25 06/16/25 History hr,extended release sodium chloride 7 % for 1 inh inhalation BID #240 mL 03/26/25 06/16/25 Rx nebulization prazosin 5 mg capsule 5 mg PO HS 04/05/25 06/16/25 History duloxetine 30 mg capsule,delayed 30 mg PO HS #30 caps 04/12/25 06/16/25 Rx release ondansetron 8 mg disintegrating 8 mg PO Q8H PRN nausea and 04/29/25 06/16/25 Rx tablet vomiting #30 tabs aspirin 81 mg capsule 81 mg PO QPM 05/03/25 06/16/25 History budesonide 0.5 mg/2 mL suspension 0.5 mg inhalation QPM 05/03/25 06/16/25 History for nebulization divalproex 500 mg tablet,delayed 1,000 mg PO QAM 05/03/25 06/16/25 History release duloxetine 60 mg capsule,delayed 60 mg PO QAM 05/03/25 06/16/25 History release FreeStyle Rosalie 2 Sensor (flash #6 ea 05/06/25 06/13/25 Rx glucose sensor) levothyroxine 150 mcg tablet 150 mcg PO DAILYBB #30 tabs 05/06/25 06/16/25 Rx (Synthroid) desmopressin 0.2 mg tablet 0.4 mg (2 x 0.2 mg) PO BID #120 05/16/25 06/16/25 Rx tabs naloxone 4 mg/actuation nasal 1 spray intranasal ONCE PRN opioid 05/18/25 06/16/25 Rx spray (Narcan) overdose #2 ea oxycodone 5 mg tablet 15 mg (3 x 5 mg) PO Q4H PRN pain 05/18/25 06/16/25 Rx #84 tabs somatropin 5 mg/1.5 mL (3.3 mg/mL) 3 mg subcut QPM 05/29/25 06/16/25 History subcutaneous pen injector (Norditropin FlexPro) FreeStyle Rosalie 2 Plus Sensor #6 ea 06/04/25 06/13/25 Rx (blood-glucose sensor) apixaban 5 mg tablet 5 mg PO BID 06/12/25 06/13/25 History doxycycline hyclate 100 mg capsule 100 mg PO BID 06/12/25 06/16/25 History sumatriptan 1 dose PO UD PRN Migraine Headache 06/12/25 06/16/25 History tirzepatide 5 mg/0.5 mL 5 mg subcut WK 06/12/25 06/16/25 History subcutaneous pen injector (Mounjaro) ascorbic acid (vitamin C) 250 mg 250 mg PO BID #60 tabs 06/13/25 06/16/25 Rx tablet ferrous sulfate 325 mg (65 mg 325 mg PO BID #60 tabs 06/13/25 06/16/25 Rx iron) tablet hydrocortisone 10 mg tablet 10 - 20 mg PO UD 06/13/25 06/16/25 History lisinopril 10 mg tablet 10 mg PO DAILY #30 tabs 06/13/25 06/16/25 Rx mupirocin 2 % topical ointment 1 applic topical BID #22 grams 06/13/25 06/16/25 Rx Past Med/Surg History Problem List Vision loss, left eye Hypopituitarism Fall (Acute) Abrasion of knee, left (Acute) Counseling regarding advanced directives and goals of care Psychogenic nonepileptic seizure Asthma COPD (chronic obstructive pulmonary disease) Intractable back pain (Acute) Numbness of right foot Advanced care planning/counseling discussion Bilateral nephrolithiasis (Chronic) Elevated lactic acid level Compartment syndrome of lower extremity Ambulatory dysfunction (Acute) Arthralgia Venous stasis ulcers (Acute) Chronic venous insufficiency (Chronic) Presbyopia of both eyes Epiretinal membrane (ERM) of left eye Ocular hypertension Secondary cataract of left eye with vision obscured Combined form of senile cataract of right eye Abnormal chest CT Demyelinating disease Esophageal dysphagia 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 Current use of proton pump inhibitor Chronic migraine without aura or status migrainosus Anemia (Acute) Ulcerative colitis Mixed hyperlipidemia Lumbar stenosis with neurogenic claudication Arachnoid cyst of posterior cranial fossa Pseudoseizures Idiopathic polyneuropathy Essential tremor Mitral regurgitation Depression Anxiety (Chronic) Medical History Therapeutic opioid-induced constipation (OIC) Bipolar 1 disorder Diabetes Palliative care by specialist Back pain at L4-L5 level Staphylococcus aureus bacteremia with sepsis Sepsis due to cellulitis Hypokalemia Abrasion of knee Frequent falls Generalized weakness Hypomagnesemia Sepsis Fever of unknown origin Generalized pain Contusion of face Hypomagnesemia Opiate dependence Hypotension Toxic metabolic encephalopathy Hyperphosphatemia Hypomagnesemia Hypocalcemia Acute hyponatremia Dizziness QUENTIN (acute kidney injury) CHI (closed head injury) Acute flank pain Kidney stones currently causing severe pain History of pneumonia (03/2025) states has been admitted for total of 36 days ytd at [facility] for pneumonia, last was approxl 1 month ago Ocular hypertension Ulcerative colitis Mixed hyperlipidemia Lumbar stenosis with neurogenic claudication Idiopathic polyneuropathy Essential tremor Demyelinating disease Compartment syndrome of lower extremity (02/2025) per hx Chronic venous insufficiency Back pain at L4-L5 level Arthralgia Depression with anxiety Hx of fall (11/2024) History of dysphagia Hematuria On home O2 4 L nc History of recent hospitalization states has been in hospital 36 days this year so far with pneumonia- last was approx 1 month ago Sepsis Pyelonephritis Urinary tract obstruction due to kidney stone Lactic acidosis LPRD (laryngopharyngeal reflux disease) Severe obesity (BMI 35.0-35.9 with comorbidity) Uncontrolled type 2 diabetes mellitus with hyperglycemia Suspect low glycation index meaning his A1c is typically about 2 points lower than what his average glucose would suggest. Hypothyroidism Hypertension Non-occlusive coronary artery disease Acute dehydration hx Witnessed seizure-like activity Nonepileptic episode Chronic narcotic dependence COPD with exacerbation (03/2025) follows with dr. mccarthy (last seen while in hospital at [facility] with pneumonia ~) Anti-cyclic citrullinated peptide antibody positive Restrictive lung disease follows with dr. mccarthy, on O2 4L nc at all times Abnormal PFTs (pulmonary function tests) Bipolar disorder (10/11/22) Obstructive sleep apnea cpap 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 Follows with endocrinology- Secondary adrenal insufficiency Transient alteration of awareness Chronic adrenal insufficiency Leukocytosis Acute asthma exacerbation hx Acute on chronic hypoxic respiratory failure O2 4L nc Migraine Hematoma Growth hormone deficiency Diaphoresis hx Acute hypoxic respiratory failure hx Influenza A (12/2024) hx- Status epilepticus (09/13/24) Knee hemarthrosis, right (09/13/24) Acute on chronic anemia (09/13/24) Acute metabolic encephalopathy (09/13/24) hx Laceration of toe of right foot Closed fracture of right fibula with malunion Right fibular fracture hx Acute on chronic respiratory failure with hypoxia and hypercapnia Shortness of breath only if not wearing oxygen Chronic respiratory failure with hypoxia Obesity CKD (chronic kidney disease), stage III Peripheral edema Atrial fibrillation (02/15/24) no cardioversion- has loop recorder and watchmans device, follows with dr. kilgore (03/2025 while inpt.) Chronic low back pain Panhypopituitarism Lumbosacral radiculopathy Toxic encephalopathy Chest pain hx Acute dyspnea hx Acute CHF hx Hypoglycemia hx Syncope and collapse Reason for loop recorder No recent issues since bed bound from femur fracture in Sep 2022 per patient Internal hemorrhoids Recurrent seizures (05/01/25) goes sometimes months without seizures, then may may have 2 in one day- last seizure- 05/01/25- grand mal, lost control of bowel and bladder- informed neuro, dr. villa- told to stay on meds (last saw dr. villa on tu04/30/25) Pituitary diabetes insipidus Spondylolysis, lumbar region Right lumbar radiculopathy HTN (hypertension) Adrenal insufficiency Pituitary adenoma Hyperactive gag reflex BRCA gene positive tested positive in Aug 2023 [place] Family history of BRCA gene mutation PTSD (post-traumatic stress disorder) Epidural lipomatosis Chronic left sacroiliac pain Benzodiazepine overdose hx Presence of cardiac device Loop recorder > placed at [facility]- last checked fall 2023 Hx of fracture of foot Sep 2022- right > cast since removed > still gets painful Fracture of fibula, right, closed Cerebral concussion May 2023 during seizure > no further issues Orthostatic hypotension Sensorineural hearing loss of both ears Rectal bleeding on occasion History of COVID-19 10/2021 - fatigue; resolved. Mitral valve regurgitation follows with Dr. kilgore Vertigo Lower extremity edema Elevated LFTs Bilateral hand pain Pituitary neoplasm Dx'ed in 2001- s/p surgical resection and XRT Repeat surgery in 2018 secondary to tumor regrowth at [facility] Prostate mass benign Bladder mass benign Surgical History Presence of Watchman left atrial appendage closure device (02/2024) eric History of arthroplasty of left knee (2014) S/P TURP (status post transurethral resection of prostate) History of lumbar fusion (07/2022) [facility] Jul 2022 History of cardiac cath (07/2021) 07/2021 - no stents- no il - [facility]- follows with dr. kilgore S/P epidural steroid injection History of lithotripsy Status post right foot surgery replaced 5th metatarsal--hardware in place History of bladder surgery remove mass History of prostate surgery (2017) remove mass- not malignant History of colonoscopy History of esophagogastroduodenoscopy (EGD) History of tooth extraction History of wisdom tooth extraction History of brain surgery x2---2004 @ [facility], 2018 @ [facility]--for brain tumors > caused epilepsy Family History Grandmother (Paternal) Family history of diabetes mellitus Aunt Family history of diabetes mellitus Uncle Family history of diabetes mellitus Father , at 85 years of age from dementia. Prostate cancer Heart disease Osteoarthritis Mother , at 84 years of age from acute NE. Cardiac disorder Grandmother (Maternal) Myocardial infarction Other Asthma Cancer Hypertension No family history of adverse response to anesthesia No family history of bleeding disorder Stroke Denies family history of Ovarian cancer Breast cancer Colorectal cancer Social History Smoking Status: Never smoker Tobacco Type: Smokeless Tobacco (Dip or Chew) Second Hand Exposure: No; Do You Dip or Chew Tobacco: No; Hx Alcohol Use: No Hx Substance Use: No Preferred Language: Citizen Of [place] Communication Ability: Effective Communication Ability Comment: Unable to obtain due to patient condition. 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 caffeine: No (1/2 20 oz bottle of mountain dew. ) during the past year weight has: increased > 10 lbs Physical Activity Frequency: Daily Physical Activity Frequency Comment: walking, 1.5 miles daily. Seatbelt Use: always Do you think of yourself as: straight/heterosexual Gender Identity: Male Assistive Devices: Walker Review of Systems Review of Systems: All systems reviewed & are unremarkable except as noted in HPI & below Physical Exam Physical Exam: General: patient resting comfortably, NAD, non-toxic in appearance, AA&O x 4 Skin: warm, dry, intact, no rashes or lesions HEENT: NC/AT, PERRL, EOMI, anicteric sclera, conjunctiva without injection, external ear normal to inspection and nontender, nares patent, moist mucus membranes, dentition intact, no oropharyngeal lesions, neck supple, trachea midline, no LAD, no thyromegaly, no JVD Heart: +S1/S2, regular, no m/r/g Lungs: equal air entry bilaterally, no rales/rhonchi/wheezes Abd: +BS, soft, NT/ND, no masses/organomegaly/ascites Ext: warm, 2+ pulses in UE/LE bilaterally, no clubbing/cyanosis or edema Neuro: nonfocal, patient AA&O x 4, speech intact, no facial droop, moving all extremities on command with equal strength 5/5 Results & Data Results & Data Vital Signs (Past 12 Hours) Vital Signs Temp Pulse Pulse Resp BP BP Pulse Ox 06/16/25 20:39 89 14 141/93 H 94 06/16/25 20:23 90 16 93 06/16/25 20:00 89 17 110/83 93 06/16/25 19:55 100 06/16/25 19:23 36.9 C 89 16 124/72 98 06/16/25 19:19 90 O2 Del Method O2 Flow Rate 06/16/25 20:39 Room Air 06/16/25 20:23 Room Air 06/16/25 20:00 Room Air 06/16/25 19:55 Room Air, Non-rebreather 15 06/16/25 19:23 Non-rebreather 15 06/16/25 19:19 Laboratory Results Laboratory Results WBC 6.22 K/ul (4.8-10.8) 06/16/25 19:34 RBC 3.38 M/uL (4.70-6.10) L 06/16/25 19:34 Hgb 9.8 g/dl (14.0-18.0) L 06/16/25 19:34 POC Hgb 10.2 g/dl (14.0-18.0) L 06/16/25 19:32 Hct 29.5 % (42.0-52.0) L 06/16/25 19:34 POC Hct 30 % (42-52) L 06/16/25 19:32 MCV 87.3 fL (80.0-100.0) 06/16/25 19:34 MCH 29.0 pg (25.0-34.0) 06/16/25 19:34 MCHC 33.2 g/dL (32.0-36.0) 06/16/25 19:34 RDW Std Deviation 46.4 fL (36.4-46.3) H 06/16/25 19:34 RDW Coeff of Yanira 14.8 % (11.5-14.5) H 06/16/25 19:34 Plt Count 194 K/uL (130-400) 06/16/25 19:34 MPV 9.1 fL (9.4-12.4) L 06/16/25 19:34 Immature Gran % (Auto) 1.1 % 06/16/25 19:34 Neut % (Auto) 54.1 % 06/16/25 19:34 Lymph % (Auto) 31.8 % 06/16/25 19:34 Atlantic % (Auto) 10.0 % 06/16/25 19:34 Eos % (Auto) 2.4 % 06/16/25 19:34 Baso % (Auto) 0.6 % 06/16/25 19:34 Neut # (Auto) 3.36 K/uL (1.40-6.50) 06/16/25 19:34 Lymph # (Auto) 1.98 K/uL (1.20-3.40) 06/16/25 19:34 Atlantic # (Auto) 0.62 K/uL (0.11-0.59) H 06/16/25 19:34 Eos # (Auto) 0.15 K/uL (0.00-0.50) 06/16/25 19:34 Baso # (Auto) 0.04 K/uL (0.00-0.20) 06/16/25 19:34 Immature Gran # (Auto) 0.07 K/uL (0.01-0.20) 06/16/25 19:34 PT 11.3 Seconds (9.0-12.0) 06/16/25 20:25 INR 1.0 (0.9-1.1) 06/16/25 20:25 APTT 23 Seconds (21-31) 06/16/25 20:25 PTT Ratio 0.9 06/16/25 20:25 VBG pH 7.29 (7.36-7.41) L 06/16/25 19:34 VBG pCO2 49 mmHg (38-50) 06/16/25 19:34 VBG pO2 28 mmHg 06/16/25 19:34 VBG HCO3 24 mmol/L 06/16/25 19:34 VBG O2 Saturation < 60.0 % 06/16/25 19:34 VBG Base Excess -3.4 mEq/L 06/16/25 19:34 POC Sodium 135 mmol/L (135-144) 06/16/25 19:32 Sodium 136 mmol/L (136-145) 06/16/25 19:34 POC Potassium 4.8 mmol/L (3.3-5.0) 06/16/25 19:32 Potassium 4.6 mmol/L (3.5-5.1) 06/16/25 19:34 POC Chloride 100 mmol/L (101-112) L 06/16/25 19:32 Chloride 100 mmol/L (98-107) 06/16/25 19:34 Carbon Dioxide 24 mmol/L (21-32) 06/16/25 19:34 POC Total CO2 24 mmol/L (24-31) 06/16/25 19:32 Anion Gap 12 (3-11) H 06/16/25 19:34 POC Anion Gap 18.0 mmol/L (16-25) 06/16/25 19:32 POC BUN 12 mg/dl (7-18) 06/16/25 19:32 BUN 11 mg/dl (6-23) 06/16/25 19:34 Creatinine 2.81 mg/dl (0.6-1.4) H 06/16/25 19:34 POC Creatinine 3.0 mg/dl (0.6-1.3) H 06/16/25 19:32 Est Cr Clr Drug Dosing 36.5 ml/min 06/16/25 19:34 eGFR 25.57 06/16/25 19:34 BUN/Creatinine Ratio 3.9 (10-20) L 06/16/25 19:34 Glucose 128 mg/dl (70-99(Fasting)) H 06/16/25 19:34 POC Glucose 158 mg/dl (70-99) H 06/16/25 19:19 POC Glucose (other) 125 mg/dl (70-99) H 06/16/25 19:32 Lactate 3.5 mmol/L (0.4-2.0) H* 06/16/25 19:34 Calcium 9.3 mg/dl (8.6-10.3) 06/16/25 19:34 POC Ioniz Calcium Jeny 1.17 mmol/l (1.12-1.32) 06/16/25 19:32 Phosphorus 5.9 mg/dl (2.5-4.9) H 06/16/25 19:34 Magnesium 1.4 mg/dl (1.7-2.4) L 06/16/25 19:34 Total Bilirubin 0.4 mg/dl (0.2-1.0) 06/16/25 19:34 AST 31 U/L (13-39) 06/16/25 19:34 ALT 26 U/L (7-52) 06/16/25 19:34 Alkaline Phosphatase 58 U/L (34-104) 06/16/25 19:34 Total Creatine Kinase 42 U/L (30-223) 06/16/25 19:34 Total Protein 6.7 gm/dl (6.0-8.3) 06/16/25 19:34 Albumin 4.2 gm/dl (3.4-5.0) 06/16/25 19:34 Globulin 2.5 gm/dl (2.5-4.0) 06/16/25 19:34 Albumin/Globulin Ratio 1.7 (0.9-2) 06/16/25 19:34 Urine Color Yellow 06/16/25 21:30 Urine Appearance Clear (Clear) 06/16/25 21:30 Urine pH 5.5 (4.5-7.5) 06/16/25 21:30 Ur Specific [place] 1.025 (1.000-1.030) 06/16/25 21:30 Urine Protein 1+ (Negative) H 06/16/25 21:30 Urine Glucose (UA) Negative (Negative) 06/16/25 21:30 Urine Ketones Negative (Negative) 06/16/25 21:30 Urine Blood 1+ (Negative) H 06/16/25 21:30 Urine Nitrite Negative (Negative) 06/16/25 21:30 Urine Bilirubin Negative (Negative) 06/16/25 21: Urine Urobilinogen Negative (Negative) 06/16/25 21:30 Ur Leukocyte Esterase Negative (Negative) 06/16/25 21:30 Urine RBC 6-10 /hpf (0-2) H 06/16/25 21: Urine WBC 6-10 /hpf (0-5) H 06/16/25 21:30 Ur Epithelial Cells 11-20 /hpf (0-2) H 06/16/25 21:30 Urine Bacteria 1+ (None Seen) H 06/16/25 21:30 Hyaline Casts Present /lpf (None Presnt) A 06/16/25 21:30 Urine Mucus Present (None Prsent) A 06/16/25 21:30 Urine Comment 06/16/25 21:30 Salicylates < 3.0 mg/dl (3.0-30) L 06/16/25 22:57 Urine Opiates Screen Pos (Neg) H 06/16/25 21:30 Ur Methadone, Qual Neg (Neg) 06/16/25 21:30 Urine Fentanyl Screen Neg (Neg) 06/16/25 21:30 Acetaminophen 3 ug/ml (10-30) L 06/16/25 22:57 Urine Barbiturates Neg (Neg) 06/16/25 21:30 Ur Phencyclidine (PCP) Neg (Neg) 06/16/25 21:30 U Amphetamin/Meth Scrn Neg (Neg) 06/16/25 21:30 MDMA (Ecstasy) Screen Neg (Neg) 06/16/25 21:30 U Benzodiazepines Scrn Neg (Neg) 06/16/25 21:30 Ur Cocaine Metabolite Neg (Neg) 06/16/25 21:30 U Marijuana (THC) Screen Neg (Neg) 06/16/25 21:30 Ethyl Alcohol mg/dL < 10.0 mg/dl (<10.0) 06/16/25 19:34 Impressions Chest X-Ray 06/16/25 19:23 Exam(s): XR CXR 1 VIEW EXAM: XR Chest, 1 View CLINICAL HISTORY: Altered mental status. TECHNIQUE: Frontal view of the chest. COMPARISON: Chest radiograph 01/18/2025 FINDINGS: Lungs: Low lung volumes accentuate pulmonary markings. Bilateral airspace opacities are present. Pleural space: Question small left pleural effusion. No pneumothorax. Heart: Unremarkable. No cardiomegaly. Mediastinum: Unremarkable. Normal mediastinal contour. Bones/joints: There are degenerative changes of the spine. No acute fracture. Tubes, lines and devices: Redemonstrated implanted cardiac device. IMPRESSION: 1. Low lung volumes accentuate pulmonary markings. Bilateral airspace opacities may represent atelectasis, pulmonary edema or atypical infection. 2. Question small left pleural effusion. Electronically signed by: Elaina Pitts MD 06/16/25 21:[address] 06/16/25 19:23 Exam(s): CT HEAD Without Contrast EXAM: CT Head Without Intravenous Contrast CLINICAL HISTORY: Altered mental status and fall TECHNIQUE: Axial computed tomography images of the head/brain without intravenous contrast. CTDI is 36.9 mGy and DLP is 625.8 mGy-cm. Automated exposure control was utilized for the study. A dose lowering technique was utilized adhering to the principles of ALARA. COMPARISON: CT head 06/12/2025 FINDINGS: Brain: No intracranial hemorrhage, mass-effect or midline shift. No abnormal extra axial fluid. No evidence of acute infarct. 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 Incidentally noted patrick cisterna magna. Ventricles: Unremarkable. No ventriculomegaly. Bones/joints: Unremarkable. No acute fracture. Soft tissues: Unremarkable. Sinuses: Unremarkable as visualized. No acute sinusitis. Mastoid air cells: Unremarkable as visualized. No mastoid effusion. IMPRESSION: No acute intracranial finding. Electronically signed by: Elaina Pitts MD 06/16/25 21:22 PM Code Status & VTE Plan VTE Prophylaxis Plan VTE Prophylaxis will be ordered: Yes PG Care Time/CCT Total # of Minutes Spent Total Time Spent with Patient: Total time spent is greater than 50% in coordination of care (as documented) at patient's floor/unit and/or counseling patient: Coding Level of Care Code 94431 INT INP/OBS CARE MIN Diagnoses QUENTIN (acute kidney injury) N17.9 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
--- NOTE | 2025-06-16 21:45 | XRay Report ---
Exam(s): XR CXR 1 VIEW EXAM: XR Chest, 1 View CLINICAL HISTORY: Altered mental status. TECHNIQUE: Frontal view of the chest. COMPARISON: Chest radiograph 01/18/2025 FINDINGS: Lungs: Low lung volumes accentuate pulmonary markings. Bilateral airspace opacities are present. Pleural space: Question small left pleural effusion. No pneumothorax. Heart: Unremarkable. No cardiomegaly. Mediastinum: Unremarkable. Normal mediastinal contour. Bones/joints: There are degenerative changes of the spine. No acute fracture. Tubes, lines and devices: Redemonstrated implanted cardiac device. IMPRESSION: 1. Low lung volumes accentuate pulmonary markings. Bilateral airspace opacities may represent atelectasis, pulmonary edema or atypical infection. 2. Question small left pleural effusion. Electronically signed by: Elaina Pitts MD 06/16/25 21:44 PM
[2025-06-16 22:45] LABS: Appearance Urine Clear (Clear); Glucose Urine UA Negative (Negative)
[2025-06-16 22:51] LABS: Amphetamines+Metham, Urine Neg (Neg); MDMA (Ecstacy), Urine Neg (Neg); Marijuana, Urine Neg (Neg)
[2025-06-17 00:19] LABS: Acetaminophen 3 ug/ml (10-30); Salicylate < 3.0 mg/dl (3.0-30)
[2025-06-17] MEDS ORDERED: DEXTROSE 50% 50 ML SYRINGE IV PRN (01:13)
[2025-06-17] MEDS ORDERED: GLUCOSE 10 TAB/TUBE PO PRN (01:13)
[2025-06-17] MEDS ORDERED: ALBUT/IPRATROP 3MG/0.5MG NEB 3 ML VIAL INH PRN (01:13)
[2025-06-17] MEDS ORDERED: GLUCOSE 40% GEL 15 GM TUBE PO PRN (01:13)
[2025-06-17] MEDS ORDERED: ALBUTEROL HFA 8 GM INHALER INH PRN (01:13)
[2025-06-17] MEDS ORDERED: GLUCAGON FOR INJ 1 MG VIAL SQ PRN (01:13)
[2025-06-17] MEDS ORDERED: CARBOHYDRATES FOR HYPOGLYCEMIA PO PRN (01:13)
[2025-06-17] MEDS ORDERED: ONDANSETRON INJ 2 MG/ML 2 ML VIAL IV PRN (01:13)
[2025-06-17] MEDS ORDERED: ACETYLCYSTEINE 20% INHAL SOLN 30ML INH PRN (01:13)
[2025-06-17] MEDS ORDERED: ACETAMINOPHEN 325 MG TAB PO PRN (01:13)
[2025-06-17] MEDS: LACTATED RINGER'S 1,000 ML IV SCH (02:15)
[2025-06-17] MEDS: LEVOTHYROXINE SODIUM 150 MCG TABLET PO SCH (05:59)
[2025-06-17 06:27] LABS: Hematocrit (blood only) 25.8 % (42.0-52.0); Hemoglobin 8.7 g/dl (14.0-18.0); Mean Corpuscular Hemoglobin 28.8 pg (25.0-34.0); Mean Corpuscular Volume 85.4 fL (80.0-100.0); Platelet Count 171 K/uL (130-400); RDW Standard Deviation 44.7 fL (36.4-46.3); Red Blood Count 3.02 M/uL (4.70-6.10); White Blood Count 4.57 K/ul (4.8-10.8)
[2025-06-17 06:51] LABS: Alanine Aminotransferase 20.0 U/L (7-52); Alkaline Phosphatase 49.0 U/L (34-104); Anion Gap 8.0 (3-11); Bilirubin,Total 0.3 mg/dl (0.2-1.0); Blood Urea Nitrogen 12.0 mg/dl (6-23); Calcium 8.7 mg/dl (8.6-10.3); Carbon Dioxide 26.0 mmol/L (21-32); Chloride 102.0 mmol/L (98-107); Creatinine Clr Calc Pharmacy 64.2 ml/min; Glucose 89.0 mg/dl (70-99(Fasting)); Potassium 3.9 mmol/L (3.5-5.1); Sodium 136.0 mmol/L (136-145); Total Protein 5.4 gm/dl (6.0-8.3)
[2025-06-17] MEDS: FORMOTEROL 20 MCG/2 ML VIAL INH SCH (07:04)
[2025-06-17] MEDS: SODIUM CHLOR 7% 4 ML NEB INH SCH (07:04)
[2025-06-17] MEDS: levETIRAcetam 500 MG TAB PO SCH (07:55)
[2025-06-17] MEDS: VENLAFAXINE HCL XR 150 MG CAPXR PO SCH (07:55)
[2025-06-17] MEDS: ARIPiprazole 5 MG TAB PO SCH (07:55)
[2025-06-17] MEDS: DIVALPROEX DELAY RELEASE 500 MG TAB PO SCH (07:55)
[2025-06-17] MEDS: DESMOPRESSIN ACETATE 0.1 MG TAB PO SCH (07:56)
[2025-06-17] MEDS: HYDROCORTISONE 10 MG TAB PO SCH (07:56)
[2025-06-17] MEDS: ROSUVASTATIN CALCIUM 20 MG TAB PO SCH (07:56)
[2025-06-17] MEDS: LACOSAMIDE 50 MG TABLET PO SCH (08:03)
[2025-06-17] MEDS: INSULIN ASPART PER UNIT CHARGE SC SCH (09:18)
[2025-06-17] MEDS: LANTUS PER UNIT CHARGE SQ SCH (09:21)
[2025-06-17 09:28] LABS: Magnesium 1.5 mg/dl (1.7-2.4)
[2025-06-17] MEDS: MAGNESIUM SULFATE / D5W 1 GM/100 ML BAG IV SCH (13:15)
[2025-06-17] MEDS: BUDESONIDE 0.5 MG/2 ML VIAL (PULMICORT) INH SCH (17:46)
--- NOTE | 2025-06-17 19:03 | Hospitalist Progress Note ---
Date of Service June 17, 2025 Assessment & Plan (1) QUENTIN (acute kidney injury): (2) Psychogenic nonepileptic seizure: (3) Diabetes: (4) Hypertension: (5) COPD (chronic obstructive pulmonary disease): (6) Anxiety: (7) Bipolar 1 disorder: (8) Hypothyroidism: Plan 54yo male with multiple medical comorbidities including history of epileptic seizures as well as ongoing PNES, and extreme polypharmacy presenting with QUENTIN and episode of unresponsiveness lasting approximately 20 minutes. Patient also with QUENTIN on labs. I don't know what yesterday's episode was, but no seizure was witnessed and it was not typical of his PNES, it also was not syncope. Family reports BP per medics was 60, however, BP was normal on arrival to ED. His QUENTIN is prerenal and quickly improving and he was dehydrated. In addition he had two beers and was out in the heat on top of his polypharmacy which certainly could have caused episode of altered level of consciousness. It also could have been psychogenic episode and he has had increased personal stress recently. Regardless I think the cause was benign and has resolved. #QUENTIN - prerenal and quickly resolving with IVF. Good UOP. Rule out obstructive, currently has puentes -IVF -AM BMP -voiding trial tomorrow #Psychogenic nonepileptic seizures as well as remote epileptic seizures but no proven/clearcut ones in a long time per his neurologist -Continue Keppra -Continue Vimpat -Continue Divalproex #Diabetes - well controlled. Last [id number]=5.4 on 06/13/25. -Lantus 5u BID, premeal -BG reviewed well controlled #History of MRSA bacteremia - patient completed course of antibiotics. Repeat blood cultures from 05/30/25 remain negative to date. -follow up repeat blood cultures -No antibiotics for now #Adrenal insufficiency - HD stable -Continue Hydrocortisone at home dose -Continue Desmopressin #Ambulatory dysfunction -PT/OT evaluation appreciated -Maintain fall precautions #COPD -Hypertonic nebs BID -Formoterol -Budesonide -Duonebs -Albuterol #Hypertension -Continue Metoprolol 25mg po qHS #Hyperlipidemia -Continue Crestor -CK wnl #Hypothyroid -Continue Sythroid #Anxiety/Depression/Bipolar 1/ PTSD/Mental health -Encourage patient to resume care with Psychiatry outpatient - may be of use to him during this stressful family time. 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 May be from oral iron. AM CBC Consulted palliative care, Dr. Lindo follows him outpatient for symptom management. Started on oxycodone for chronic pain this spring. Its possible his lower appetite and poor taste in mouth is a drug side effect Admission and Anticipated Discharge Date Admission Date: June 16, 2025 Subjective I saw Waldo with his at bedside She reports 20 minute episode where he was unresponsive though not unconscious ie awake/eyes open. No shaking or seizure like movements. She says that when medics arrived SBP was 60. I can't see the report but BG was 88 per ED triage and initial BP in ED was 124/72. He had another unresponsive spell in the ED but when the doc dropped his arm toward his face, Waldo moved his arm to the danisha e to prevent hitting his face, so he was aware at that time. He says he can't remember events of yesterday or being in the ED. He says he uses meds per his blister packs and didn't take additional PRN meds. [place] and it was hot though he stayed in shade. He had two beers. Doesn't usually drink much last time he had beers was around [place]. Recently he's had poor appetite and po intake because food doesn't taste good. No recent URI symptoms. He reports having black formed stool this week, not taking pepto-bismol Physical Exam Physical Exam: Last 24h vitals reviewed GEN: no acute distress, sitting in bed, pleasant HEENT: pupils equal, sclerae anicteric, moist MM RESP: normal WOB, CTAB CV: reg no mrg ABD: soft/nt/nd +BT : puentes with light yellow urine SKIN: warm and dry, no generalized rashes NEURO: AOx person, place, and situation. Face symmetric, speech normal, moves 4 ext spontaneously and equally Results & Data Results & Data Vital Signs (Past 12 Hours) Vital Signs Temp Pulse Pulse Resp BP Pulse Ox O2 Del Method 06/17/25 17:47 91 H 18 96 Room Air 06/17/25 16:13 36.8 C 92 H 20 121/79 93 Room Air 06/17/25 15:36 89 06/17/25 11:30 36.6 C 86 18 143/78 H 95 Room Air 06/17/25 07:50 Room Air 06/17/25 07:38 36.6 C 84 18 123/75 97 Room Air 06/17/25 07:34 84 06/17/25 07:04 91 H 16 97 Room Air Laboratory Results Notable for Cr improved from 2.81-->1.6 with goodd UOP Mag low 1.4 Hg 8.7 which dropped from 9.8 yesterday but likely dilutional because Hg was mid 8's ten to 14 days ago Diagnostic Findings UA did not meet criteria for culture Head CT and CXR with no acute findings PG Care Time/CCT Total # of Minutes Spent Total Time Spent with Patient: Total time spent is greater than 50% in coordination of care (as documented) at patient's floor/unit and/or counseling patient: Coding Level of Care Code 45788 SUB INP/OBS CARE 3/50MIN Diagnoses QUENTIN (acute kidney injury) N17.9 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
[2025-06-17] MEDS: METOPROLOL SUCC 25MG EXT REL TAB PO SCH (20:18)
[2025-06-17] MEDS: MIRTAZAPINE TAB 15 MG TAB PO SCH (20:18)
[2025-06-17] MEDS: ASPIRIN 81 MG ECTAB PO SCH (20:18)
[2025-06-17] MEDS: PRAZOSIN HCL 1 MG CAP PO SCH (20:18)
[2025-06-17] MEDS: PROPRANOLOL HCL 60 MG LA CAP PO SCH (20:18)
[2025-06-17] MEDS: CLOPIDOGREL BISULFATE 75 MG TAB PO SCH (20:19)
[2025-06-17 20:41] LABS: A calco-baum cmplx NotReported Not Detected (NotDetected); Bact fragilis Not Reported Not Detected (NotDetected); Blood Culture Id Panel PCR Panel Negative (NotDetected); C auris Not Reported Not Detected (NotDetected); Calbicans Not Reported Not Detected (NotDetected); Candida glabrata Not Reported Not Detected (NotDetected); Candida krusei Not Reported Not Detected (NotDetected); Cneoformans/gatti Not Reported Not Detected (NotDetected); Cparapsilosis Not Reported Not Detected (NotDetected); Ctropicalis Not Reported Not Detected (NotDetected); E cloacae compx Not Reported Not Detected (NotDetected); Efaecalis Not Reported Not Detected (NotDetected); Efaecium Not Reported Not Detected (NotDetected); Enterobacterales Not Reported Not Detected (NotDetected); Escherichia coli Not Reported Not Detected (NotDetected); H influenzae Not Reported Not Detected (NotDetected); K aerogenes Not Reported Not Detected (NotDetected); Koxytoca Not Reported Not Detected (NotDetected); Kpneumoniae grp Not Reported Not Detected (NotDetected); Lmonocyt Not Reported Not Detected (NotDetected); N meningitidis Not Reported Not Detected (NotDetected); P aeruginosa Not Reported Not Detected (NotDetected); Proteus spp Not Reported Not Detected (NotDetected); Salmonella spp Not Reported Not Detected (NotDetected); Staph lugdunensis Not Reported Not Detected (NotDetected); Staph spp. Not Reported Not Detected (NotDetected); Staphaureus Not Reported Not Detected (NotDetected); Staphepi Not Reported Not Detected (NotDetected); Stenmaltophilia Not Reported Not Detected (NotDetected); Strep agal(GrpB) Not Reported Not Detected (NotDetected); Strep pneum Not Reported Not Detected (NotDetected); Strep pyog (GrpA) Not Reported Not Detected (NotDetected); Strep spp Not Reported Not Detected (NotDetected)
--- NOTE | 2025-06-17 22:34 | Electrocardiogram Report ---
Test Reason : Blood Pressure : */* mmHG Vent. Rate : 89 BPM Atrial Rate : 89 BPM P-R Int : 208 ms QRS Dur : 104 ms QT Int : 402 ms P-R-T Axes : * -12 -21 degrees QTcB Int : 489 ms Sinus rhythm with 1st degree A-V block Inferior infarct , age undetermined Abnormal ECG When compared with ECG of 12-Jun-2025 18:38, Nonspecific T wave abnormality now evident in Inferior leads Confirmed by Og Cooper ([id number] on 06/17/2025 10:34:43 PM Referred By: REFERRED SELF Confirmed By: Og Cooper
[2025-06-17] MEDS: PIPERACILLIN/TAZOBACTAM 4.5 GM/100 ML BAG IV ONE (23:13)
[2025-06-18 10:29] VITALS: RESP 20
[2025-06-18 14:42] LABS: Hematocrit (blood only) 30.6 % (42.0-52.0); Hemoglobin 9.7 g/dl (14.0-18.0); Immature Granulocytes # (auto) 0.04 K/uL (0.01-0.20); Immature Granulocytes % (auto) 0.7 %; Mean Corpuscular Hemoglobin 27.5 pg (25.0-34.0); Mean Corpuscular Volume 86.7 fL (80.0-100.0); Platelet Count 186 K/uL (130-400); RDW Standard Deviation 47.1 fL (36.4-46.3); Red Blood Count 3.53 M/uL (4.70-6.10); White Blood Count 5.56 K/ul (4.8-10.8)
[2025-06-18 14:57] LABS: Anion Gap 10.0 (3-11); Blood Urea Nitrogen 10.0 mg/dl (6-23); Calcium 10.0 mg/dl (8.6-10.3); Carbon Dioxide 25.0 mmol/L (21-32); Chloride 104.0 mmol/L (98-107); Creatinine Clr Calc Pharmacy 86.1 ml/min; Glucose 123.0 mg/dl (70-99(Fasting)); Potassium 4.4 mmol/L (3.5-5.1); Sodium 139.0 mmol/L (136-145)
[2025-06-18 15:18] VITALS: BP 116/78; TEMP 97.9; O2SAT 96
[2025-06-18 15:45] VITALS: PULSE 89
--- NOTE | 2025-06-18 19:52 | Discharge Summary ---
Discharge Summary Date of Service June 18, 2025 Principal Dx & Hospital Course #1 = Principal Diagnosis (1) QUENTIN (acute kidney injury): (2) Psychogenic nonepileptic seizure: (3) Diabetes: (4) Hypertension: (5) COPD (chronic obstructive pulmonary disease): (6) Anxiety: (7) Bipolar 1 disorder: (8) Hypothyroidism: Plan 54yo male with multiple medical comorbidities including history of epileptic seizures as well as ongoing PNES, and extreme polypharmacy presenting with QUENTIN and episode of unresponsiveness lasting approximately 20 minutes. Patient also with QUENTIN on labs. #Episode of altered level of consciousness - probably acute toxic metabolic encephalopathy but also could have been psychogenic I don't know what the 20 minute episode of altered consciousness was, but no seizure was witnessed and it was not typical of his PNES, it also was not syncope. Family reports BP per medics was 60, however, BP was normal on arrival to ED. ED triage/charting does not make mention of this and I do not have access to the medic report. His QUENTIN was prerenal probably related to dehydration and quickly resolved with IVF. In addition he had two beers and was out in the heat on top of his polypharmacy which certainly could have caused episode of altered level of consciousness. It also could have been psychogenic episode and he has had increased personal stress recently. In the ED he had a spell but failed the "drop arm" test by the ED doc proving that he was aware. Regardless I think the cause was benign and has resolved. #QUENTIN - relatively mild, prerenal and resolved with IVF. Welsh removed and passed voiding trial. #Abnormal blood culture - has acinetobacter species in 1 out of four bottles drawn in ED. This particular species is a human skin bacteria and usually represents contaminated blood culture, though it can cause disease in immunocompromised individuals. He is mildly immunocompromised from diabetes and chronic steroids. No clinical s/sx bacteremia. Follow up blood cultures were drawn and are pending, NGTD at 48h. #Psychogenic nonepileptic seizures as well as remote epileptic seizures but no proven/clearcut ones in a long time per his neurologist No Seizures this admission. -Continue Keppra -Continue Vimpat -Continue Divalproex #Diabetes - well controlled. Last [id number] on 06/13/25. -continue usual home regimen #History of MRSA bacteremia mid May - mild SSTI presumed source (knee abrasion/infection). However, on my further chart review he was treated with 7 days IV daptomycin then changed to doxycycline. No TTE. Typical treatment would be 14 days IV antibiotics. Nonetheless he does not have evidence of ongoing MRSA infection. He has loop recorder, L spine hardware, hardware in LE from multiple orthopedic surgeries. No evidence of inflammation or infection of these areas at this time. All subsequent follow up blood cultures have been negative to date for staph (mutiple cultures) so this has probably resolved. #Adrenal insufficiency - HD stable -Continue Hydrocortisone at home dose -Continue Desmopressin #Ambulatory dysfunction -at baseline by discharge #COPD- not in exacerbation -Hypertonic nebs BID -Formoterol -Budesonide -Duonebs -Albuterol #Hypertension -Continue Metoprolol 25mg po qHS #Hyperlipidemia -Continue Crestor -CK wnl #Hypothyroid -Continue Sythroid #Anxiety/Depression/Bipolar 1/ PTSD/Mental health -Encourage patient to resume care with Psychiatry outpatient - may be of use to him during this stressful family time. 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 Probably from oral iron. Hg remained stable. Dr. Lindo follows him outpatient for symptom management. Started on oxycodone for chronic pain this spring. Its possible his lower appetite and poor taste in mouth is a drug side effect - especailly from the course of doxycycline which has been recently completed. Notes For Next Care Provider Follow up blood cultures pending Medication Changes From Visit None Admission HPI Per Admitting Provider Anders Leiva is a 54yo male with multiple medical comorbidities, most notably DM, HTN, Adrenal insufficiency, Atrial Fibrillation, CKD, COPD as well as PTSD associated with prior service and Bipolar 1 disorder. Patient recently admitted to [facility] 05/29 - 06/05 with sepsis secondary to cellulitis of the left knee. He had blood cultures from 05/29/25 that were POSITIVE for MRSA. He was treated with Daptomycin while inpatient and ultimately discharged home on Doxycycline 100mg po BID x 7 days to complete course. Repeat blood cultures from 05/30/25 NGTD/Final. Patient ultimately discharged to [place] swing bed and then returned home. Patient has not been doing well at home overall. He has had generalized weakness, falls. Today patient was at a family's house and developed a severe sharp/stabbing headache. He came home and went to his chair. His girlfriend then found him to be minimally responsive. She tried to sternal rub him but he did not wake up. She reports that he was staring off in a daze for approximately 20 minutes. No tonic-clonic activity, blinking, incontinence. EMS was notified and patient woke up when they arrived - no medications given. Girlfriend does report that patient was confused and sleepy after he woke up. He is now back to baseline. Patient reports poor appetite with decreased oral intake for the last several weeks. Mild SOB and SCOTT at baseline, largely unchanged. Patient has had some increased stress and anxiety in his personal life of late - his daughter told him that she didn't want anything to do with him anymore. Discharge Exam Last 24h vitals reviewed GEN: no acute distress, sitting in bed, pleasant Appears well, AOx4 HEENT: pupils equal, sclerae anicteric, moist MM RESP: normal WOB SKIN: warm and dry, no generalized rashes NEURO: AOx person, place, and situation. Face symmetric, speech normal, moves 4 ext spontaneously and equally Discharge Plan Discharge Items Patient Disposition: Home - Self-Care Reason For Visit: UNRESPONSIVE EPISODE, QUENTIN Discharge Diagnosis: Acute kidney injury Activity: Resume your previous activity Non-emergency contact: Primary Care Provider Call non-emergency contact if: you have any medication questions and your symptoms worsen Follow-up/Referrals: Pro,Larry Crisostomo MD [Primary Care Provider] - 06/21/25 8:30 am (APPOINTMENT WITH [facility]) Diet: Carb Consistent or DM2 Addtl Attending Provider Instructions: You were treated for acute kidney injury with IV fluids This reversed very quickly so it was related to dehydration I am not sure exactly what the 20 minute spell was - it does not sound like seizure, pseudoseizure, or syncope (true loss of consciousness). It probably was side effects of your usual medications plus kidney dysfunction, plus dehydration and beers. You have a bacteria in one blood culture bottle which is probably skin contamination. Occasionally it is a true infection, however. If the other three bottles from the ED and the bottles drawn today stay negative for bacteria, its skin contamination. If the other bottles turn positive we will have to call you back in for IV antibiotics and further evaluation. Seek medical attention if you get sick, especially fevers/chills malaise weakness etc. I did not change any of your usual medications Its possible the doxycycline antibiotic was causing some of your poor appetite It was a pleasure taking care of you in the hospital, Ivana Mahoney MD Addtl Medical Detail Representative Provider Instructions: DISCHARGE RECOMMENDATIONS: 1.) Given increased weakness/falls as well as fair appetite/intake, your provider may consider holding the Mounjaro. Otherwise, would consider decreasing Lantus to 8 units daily to help prevent any hypoglycemia, which could contribute to falls/weakness. 2.) Recommend upgrading to the FlytenowStyle Libre3+ sensor for 24/7 monitoring without the need to scan. Left message with your outpatient provider. 3.) Focus on consuming regular/balanced meals + protein thru the day to help s upport strengthening. Pending Studies at Discharge: Yes (blood cultures) Stand-Alone Forms: My [facility] [employer], Smoking Cessation Medications and DC Order Prescriptions: Continued clopidogrel [Plavix] 75 mg tablet 75 mg PO QPM fluticasone propionate [Flonase Allergy Relief] 50 mcg/actuation spray,suspension 1 spray intranasal HS PRN (Reason: allergy symptoms) Qty: 16 0RF Rx Instructions: administer into each nostril (DME) insulin syringe-needle U-100 [BD Insulin Syringe Ultra-Fine] 1 mL 30 gauge x 1/2" syringe See Rx Instructions .Route Qty: 300 1RF Rx Instructions: use tid (DME) OneTouch Verio test strips Strip See Rx Instructions .MEDSUPPLY Qty: 150 5RF Rx Instructions: check blood sugars 4 times a day (DME) blood-glucose meter [OneTouch Verio Reflect Meter] Misc See Rx Instructions miscellaneous .MEDSUPPLY Qty: 1 0RF Rx Instructions: As directed (DME) lancets [OneTouch Delica Plus Lancet] 33 gauge misc See Rx Instructions .MEDSUPPLY Qty: 150 5RF Rx Instructions: As directed check blood sugars 4 times a day Botox 200 unit recon soln See Rx Instructions IM .COMPLEX Qty: 1 3RF Rx Instructions: 155 UNITS IM IN THE FACE AND NECK MUSCLES EVERY 12 WEEKS PER MIGRAINE PROTOCOL rosuvastatin 20 mg tablet 20 mg PO QAM Qty: 90 2RF (DME) pen needle, diabetic [BD Vy 2nd Gen Pen Needle] 32 gauge x 5/32" needle See Rx Instructions miscellaneous .MEDSUPPLY Qty: 100 3RF Rx Instructions: inject with a new pen needle daily lorazepam 0.5 mg tablet 0.5 mg PO DAILY PRN (Reason: Seizure Activity) levetiracetam 1,000 mg tablet 1,000 mg PO Q12H Qty: 60 6RF metoprolol succinate 25 mg tablet extended release 24 hr 25 mg PO HS Qty: 90 3RF lacosamide 150 mg tablet 150 mg PO BID Qty: 60 5RF (DME) Oxygen Home Liters Per Minute See Rx Instructions .Route Rx Instructions: 4 L o2 via NC As directed, metformin 1,000 mg tablet 1,000 mg PO BID Qty: 180 3RF Hold Instructions: Per Dr Voss to hold as of 11/23/22 testosterone 20.25 mg/1.25 gram (1.62 %) gel in metered-dose pump 2 pump TOP PM Qty: 75 5RF Rx Instructions: apply 1 pump amount over max area of EACH upper arm and shoulder PDMP Queried ok to fill 03/17/2023 DS cholecalciferol (vitamin D3) 50 mcg (2,000 unit) capsule 50 mcg PO QPM Qty: 90 1RF levothyroxine [Synthroid] 150 mcg tablet 150 mcg PO DAILYBB Qty: 30 5RF (DME) FreeStyle Rosalie 2 Sensor Kit See Rx Instructions .Route Qty: 6 3RF Rx Instructions: Change every 14 days desmopressin 0.2 mg tablet 0.4 mg PO BID Qty: 120 5RF (DME) FreeStyle Rosalie 2 Plus Sensor Device See Rx Instructions .Route Qty: 6 3RF Rx Instructions: change every 15 days (DME) FreeStyle Rosalie 2 [place] Misc See Rx Instructions .Route Qty: 1 0RF Rx Instructions: Check blood glucose before each meal mirtazapine [Remeron] 30 mg tablet 30 mg PO HS albuterol sulfate [Ventolin HFA] 90 mcg/actuation HFA aerosol inhaler 2 inh inhalation Q6H PRN (Reason: shortness of breath or wheezing) Qty: 6.7 2RF prazosin 5 mg capsule 5 mg PO HS doxycycline hyclate 100 mg capsule 100 mg PO BID Patient Comments: confirmed w/ pt and on PH dc summary 06/12/25 (DME) nebulizers [Compact Compressor Nebulizer] Misc See Rx Instructions .Route Qty: 1 0RF Rx Instructions: One compact compressor nebulizer. Use as directed. Please include tubing, mouth piece and cup. ipratropium-albuterol 0.5 mg-3 mg(2.5 mg base)/3 mL solution for nebulization 3 ml inhalation QID PRN (Reason: wheezing) Qty: 90 0RF ondansetron 8 mg tablet,disintegrating 8 mg PO Q8H PRN (Reason: nausea and vomiting) Qty: 30 0RF ferrous sulfate 325 mg (65 mg iron) tablet 325 mg PO BID Qty: 60 2RF ascorbic acid (vitamin C) 250 mg tablet 250 mg PO BID Qty: 60 2RF hydrocortisone 10 mg tablet 10 - 20 mg PO UD Rx Instructions: 2 tabs (20mg) in AM, 2 tab (10mg) in PM double dose in times of stress lisinopril 10 mg tablet 10 mg PO DAILY Qty: 30 2RF mupirocin 2 % ointment 1 applic topical BID Qty: 22 2RF Rx Instructions: until healed insulin glargine [Lantus Solostar U-100 Insulin] 100 unit/mL (3 mL) insulin pen 12 unit SUBCUT HS Hold Instructions: Has been on hold for a few weeks per pt Patient Comments: PER PT HE IS TAKING 12 UNITS -CONFIRMED ON 07/19/24 magnesium oxide 400 mg (241.3 mg magnesium) tablet 400 mg PO HS propranolol 120 mg capsule,extended release 24hr 120 mg PO HS sodium chloride 7 % solution for nebulization 1 inh inhalation BID Qty: 240 3RF acetylcysteine 200 mg/mL (20 %) solution 2 ml inhalation BID PRN (Reason: Chest congestion) Qty: 100 6RF dutasteride 0.5 mg capsule 0.5 mg PO QAM Rx Instructions: TAKE 1 CAPSULE BY MOUTH DAILY IN THE MORNING Baqsimi 3 mg/actuation spray,non-aerosol 3 mg intranasal ONCE PRN (Reason: Severe Hypoglycemia) Rx Instructions: for treatment of severe hypoglycemia, second dose may be given if patient does not respond after 15 minutes . Per caregiver, pt has never has to use this medication. bumetanide 1 mg Tablet 1 mg PO QAM Qty: 30 0RF Hold Instructions: hypotension Patient Comments: Medication on hold until 06/03/25 per patient. vitamin B complex [Vitamins B Complex] Capsule 1 cap PO QAM Qty: 30 0RF arformoterol [Brovana] 15 mcg/2 mL solution for nebulization 2 ml inhalation BID venlafaxine 150 mg capsule,extended release 24hr 150 mg PO QAM quetiapine 50 mg tablet extended release 24 hr 50 mg PO QAM duloxetine 30 mg capsule,delayed release(DR/EC) 30 mg PO HS Qty: 30 0RF Norditropin FlexPro 5 mg/1.5 mL (3.3 mg/mL) pen injector 3 mg SQ QPM aripiprazole 5 mg tablet 5 mg PO QAM divalproex 500 mg tablet,delayed release (DR/EC) 1,000 mg PO QAM budesonide 0.5 mg/2 mL suspension for nebulization 0.5 mg inhalation QPM duloxetine 60 mg capsule,delayed release(DR/EC) 60 mg PO QAM aspirin 81 mg capsule 81 mg PO QPM Hold Instructions: Resume on 06/12/25. Hold OFF aspirin while you are taking linezolid 600mg PO bid (05/31/2025 pm through 06/11/2025 pm) as linezolid can lower your platelet count. Restart aspirin on 06/12/2025 am. oxycodone 5 mg Tablet 15 mg PO Q4H PRN (Reason: pain) Qty: 84 0RF Rx Instructions: 3 tablet dose naloxone [Narcan] 4 mg/actuation spray,non-aerosol 1 spray intranasal ONCE PRN (Reason: opioid overdose) Qty: 2 2RF sumatriptan 1 dose PO UD PRN (Reason: Migraine Headache) Rx Instructions: pt unsure of doseage Mounjaro 5 mg/0.5 mL pen injector 5 mg SUBCUT WK Rx Instructions: sundays Discharge Orders: Discharge Order (Routine); Ordered 06/18/25 Ordered By: Ivana Mahoney Admission Data Admit Date/Time: 06/16/25 21:37 Attending Provider: Ivana Mahoney Admit Provider: Siobhan Michele Primary Care Provider: Larry Amaral Other Interventions: Discharge Summary Assessment (RN) Last Done: 06/18/25 15:53 Hospital Stay Data Diagnostic Imagining Performed 06/16/25 19:23 CT head/brain wo con Stat Pending Results Patient Have Any Pending Studies at Discharge: Yes (blood cultures) Discharge Instructions Given to Patient (Per Discharging Provider) You were treated for acute kidney injury with IV fluids This reversed very quickly so it was related to dehydration I am not sure exactly what the 20 minute spell was - it does not sound like seizure, pseudoseizure, or syncope (true loss of consciousness). It probably was side effects of your usual medications plus kidney dysfunction, plus dehydration and beers. You have a bacteria in one blood culture bottle which is probably skin contamination. Occasionally it is a true infection, however. If the other three bottles from the ED and the bottles drawn today stay negative for bacteria, its skin contamination. If the other bottles turn positive we will have to call you back in for IV antibiotics and further evaluation. Seek medical attention if you get sick, especially fevers/chills malaise weakness etc. I did not change any of your usual medications Its possible the doxycycline antibiotic was causing some of your poor appetite It was a pleasure taking care of you in the hospital, Ivana Mahoney MD Total Time Total Time Spent Total Time Spent (In Minutes): I personally spent: 40minutes today on clinical care activities including: x reviewing chart notes and vital signs, discussion with bedside RN [x] reviewing labs x examining and counseling the patient [x] counseling the patient's family x writing orders [x] discharge instructions documentation Coding Level of Care Code 77911 INP/OBS DISCH >30 MIN Diagnoses QUENTIN (acute kidney injury) N17.9 Psychogenic nonepileptic seizure F44.5 Diabetes E11.9 Hypertension I10 Hypertension type: primary hypertension COPD (chronic obstructive pulmonary disease) J44.9 Anxiety F41.9 Bipolar 1 disorder F31.9 Hypothyroidism E03.9
[2025-06-19 12:08] LABS: Hydrocodone Urine NEGATIVE ng/mL (<50); Hydromor Urine NEGATIVE ng/mL (<50); Noroxycodone Urine 1610 ng/mL (<50); Oxymorph Urine 1190 ng/mL (<50)
== END 2025-06-18 15:54 | disposition home or self-care (01) | DRG 683 ==
LOC: ED 19:14 → 2W 21:37 → INTOOBSV 21:37 → SUATTDRO 21:37 → 2W 23:30

== ENCOUNTER 2025-07-02 10:07 | Inpatient (IN) ==
[2025-07-02 10:55] LABS: Hematocrit (blood only) 23.8 % (42.0-52.0); Hemoglobin 7.8 g/dl (14.0-18.0); Mean Corpuscular Hemoglobin 28.1 pg (25.0-34.0); Mean Corpuscular Volume 85.6 fL (80.0-100.0); Platelet Count 162 K/uL (130-400); RDW Standard Deviation 46.3 fL (36.4-46.3); Red Blood Count 2.78 M/uL (4.70-6.10); White Blood Count 5.00 K/ul (4.8-10.8)
--- NOTE | 2025-07-02 10:57 | Emergency Department Note ---
History of Present Illness General Chief complaint: GI Bleed Stated complaint: INJURY ALERT, GI BLEED, DIZZY, VOMITING Time Seen by Provider: 07/02/25 10:15 History of Present Illness Provider complaint: fall/neck pain/GI bleed Maximum Pain Intensity: 7 Home Medications Medication Instructions Recorded Confirmed Type mirtazapine 30 mg tablet (Remeron) 30 mg PO HS 06/23/22 07/01/25 History fluticasone propionate 50 1 spray intranasal HS PRN allergy 03/16/23 07/01/25 Rx mcg/actuation nasal symptoms #16 grams spray,suspension (Flonase Allergy Relief) FreeStyle Rosalie 2 Applegate (flash #1 ea 05/13/23 07/01/25 Rx glucose scanning reader) blood sugar diagnostic (OneTouch #150 ea 11/22/23 07/01/25 Rx Verio test strips) blood-glucose meter (Quest appTouch #1 ea 11/22/23 07/01/25 Rx Verio Reflect Meter) insulin syringe-needle U-100 1 mL #300 ea 11/22/23 07/01/25 Rx 30 gauge x 1/2" (BD Insulin Syringe Ultra-Fine) lancets 33 gauge (OneTouch Delica #150 ea 11/22/23 07/01/25 Rx Plus Lancet) glucagon 3 mg/actuation nasal 3 mg intranasal ONCE PRN Severe 04/06/24 07/01/25 History spray (Baqsimi) Hypoglycemia aripiprazole 5 mg tablet 5 mg PO QAM 05/29/24 07/01/25 History ipratropium 0.5 mg-albuterol 3 mg 3 ml inhalation QID PRN wheezing 07/31/24 07/01/25 Rx (2.5 mg base)/3 mL nebulization #90 mL soln nebulizers (Compact Compressor #1 ea 07/31/24 07/01/25 Rx Nebulizer) rosuvastatin 20 mg tablet 20 mg PO QAM #90 tabs 09/19/24 07/01/25 Rx pen needle, diabetic 32 gauge x #100 ea 10/23/24 07/01/25 Rx 5/32" (BD Vy 2nd Gen Pen Needle) vitamin B complex (Vitamins B 1 cap PO QAM #30 caps 10/26/24 07/01/25 Rx Complex capsule) lorazepam 0.5 mg tablet 0.5 mg PO DAILY PRN Seizure 11/23/24 07/01/25 History Activity levetiracetam 1,000 mg tablet 1,000 mg PO Q12H #60 tabs 11/26/24 07/01/25 Rx metoprolol succinate 25 mg 25 mg PO HS #90 tabs 11/30/24 07/01/25 Rx tablet,extended release 24 hr clopidogrel 75 mg tablet (Plavix) 75 mg PO QPM 12/03/24 07/01/25 History lacosamide 150 mg tablet 150 mg PO BID #60 tabs 12/26/24 07/01/25 Rx Oxygen Home 01/30/25 07/01/25 History magnesium oxide 400 mg (241.3 mg 400 mg PO HS 03/01/25 07/01/25 History magnesium) tablet testosterone 2 pump topical PM #75 grams 03/18/25 07/01/25 Rx quetiapine 50 mg tablet,extended 50 mg PO QAM 03/19/25 07/01/25 History release 24 hr venlafaxine 150 mg 150 mg PO QAM 03/19/25 07/01/25 History capsule,extended release 24 hr acetylcysteine 200 mg/mL (20 %) 2 ml inhalation BID PRN Chest 03/26/25 07/01/25 Rx solution congestion #100 mL cholecalciferol (vitamin D3) 50 50 mcg PO QPM #90 caps 03/26/25 07/01/25 Rx mcg (2,000 unit) capsule propranolol 120 mg capsule,24 120 mg PO HS 03/26/25 07/01/25 History hr,extended release sodium chloride 7 % for 1 inh inhalation BID #240 mL 03/26/25 07/01/25 Rx nebulization prazosin 5 mg capsule 5 mg PO HS 04/05/25 07/01/25 History duloxetine 30 mg capsule,delayed 30 mg PO HS #30 caps 04/12/25 07/01/25 Rx release ondansetron 8 mg disintegrating 8 mg PO Q8H PRN nausea and 04/29/25 07/01/25 Rx tablet vomiting #30 tabs aspirin 81 mg capsule 81 mg PO QPM 05/03/25 07/01/25 History divalproex 500 mg tablet,delayed 1,000 mg PO QAM 05/03/25 07/01/25 History release duloxetine 60 mg capsule,delayed 60 mg PO QAM 05/03/25 07/01/25 History release FreeStyle Rosalie 2 Sensor (flash #6 ea 05/06/25 07/01/25 Rx glucose sensor) levothyroxine 150 mcg tablet 150 mcg PO DAILYBB #30 tabs 05/06/25 07/01/25 Rx (Synthroid) desmopressin 0.2 mg tablet 0.4 mg (2 x 0.2 mg) PO BID #120 05/16/25 07/01/25 Rx tabs naloxone 4 mg/actuation nasal 1 spray intranasal ONCE PRN opioid 05/18/25 07/01/25 Rx spray (Narcan) overdose #2 ea somatropin 5 mg/1.5 mL (3.3 mg/mL) 3 mg subcut QPM 05/29/25 07/01/25 History subcutaneous pen injector (Norditropin FlexPro) FreeStyle Rosalie 2 Plus Sensor #6 ea 06/04/25 07/01/25 Rx (blood-glucose sensor) tirzepatide 5 mg/0.5 mL 5 mg subcut WK 06/12/25 07/01/25 History subcutaneous pen injector (Mounjaro) ascorbic acid (vitamin C) 250 mg 250 mg PO BID #60 tabs 06/13/25 07/01/25 Rx tablet hydrocortisone 10 mg tablet 10 - 20 mg PO DIRECTED 06/13/25 07/01/25 History dutasteride 0.5 mg capsule 0.5 mg PO QAM #90 caps 06/19/25 07/01/25 Rx sumatriptan succinate 50 mg tablet 0 mg PO .COMPLEX PRN Migraine 06/23/25 07/01/25 History Headache ferrous sulfate 325 mg (65 mg 325 mg PO Q48H #60 tabs 06/27/25 07/01/25 Rx iron) tablet zinc sulfate 50 mg zinc (220 mg) 200 mg (4 x 50 mg zinc (220 mg)) 06/27/25 07/01/25 Rx capsule (Orazinc) PO QAM #0 caps albuterol sulfate 90 mcg/actuation 2 inh inhalation Q6H PRN shortness 07/01/25 07/01/25 Rx aerosol inhaler (Ventolin HFA) of breath or wheezing #6.7 grams arformoterol 15 mcg/2 mL solution 2 ml inhalation BID #120 mL 07/01/25 07/01/25 Rx for nebulization (Brovana) budesonide 0.5 mg/2 mL suspension 0.5 mg (2 mL) inhalation BID #60 mL 07/01/25 07/01/25 Rx for nebulization insulin glargine 100 unit/mL (3 4 unit (0.04 mL) subcut HS #15 mL 07/01/25 07/01/25 Rx mL) subcutaneous pen (Lantus Solostar U-100 Insulin) lisinopril 5 mg tablet 5 mg PO DAILY #30 tabs 07/01/25 07/01/25 Rx metformin 1,000 mg tablet 1,000 mg PO DAILY #90 tabs 07/01/25 07/01/25 Rx oxycodone 5 mg tablet 5 mg PO TID PRN pain #84 tabs 07/01/25 07/01/25 Rx tiotropium bromide 2.5 2 puff inhalation DAILY #4 grams 07/01/25 07/01/25 Rx mcg/actuation mist for inhalation (Spiriva Respimat) Allergies Allergy/AdvReac Type Severity Reaction Status Date / Time clindamycin Allergy Intermediate SWELLING Verified 07/01/25 10:56 Iodinated Contrast Media Allergy Intermediate face/eye Verified 07/01/25 10:56 swelling Quinolones Allergy Intermediate HIVES Verified 07/01/25 10:56 tomato Allergy Intermediate swelling Verified 07/01/25 10:56 Past Med/Surg History Problem List (Updated 07/02/25 @ 11:56 by Archana Salvador DO) Hematochezia (Acute) Muscular deconditioning Hyponatremia Lumbosacral radiculopathy Nausea & vomiting (Acute) Dizziness (Acute) Acute hyponatremia (Acute) QUENTIN (acute kidney injury) (Acute) Abrasion of knee (Acute) Chronic anemia (Acute) Hypomagnesemia (Acute) Hyperphosphatemia (Acute) Acidosis, lactic (Acute) Acute encephalopathy (Acute) Vision loss, left eye Hypopituitarism Counseling regarding advanced directives and goals of care Psychogenic nonepileptic seizure Asthma COPD (chronic obstructive pulmonary disease) Intractable back pain (Acute) Numbness of right foot Advanced care planning/counseling discussion Bilateral nephrolithiasis (Chronic) Elevated lactic acid level Compartment syndrome of lower extremity Ambulatory dysfunction (Acute) Arthralgia Venous stasis ulcers (Acute) Chronic venous insufficiency (Chronic) Presbyopia of both eyes Epiretinal membrane (ERM) of left eye Ocular hypertension Secondary cataract of left eye with vision obscured Combined form of senile cataract of right eye Abnormal chest CT Demyelinating disease Esophageal dysphagia 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 Current use of proton pump inhibitor Chronic migraine without aura or status migrainosus Anemia (Acute) Ulcerative colitis Mixed hyperlipidemia Lumbar stenosis with neurogenic claudication Arachnoid cyst of posterior cranial fossa Pseudoseizures Idiopathic polyneuropathy Essential tremor Mitral regurgitation Depression Anxiety (Chronic) Medical History Therapeutic opioid-induced constipation (OIC) Bipolar 1 disorder Diabetes Palliative care by specialist Back pain at L4-L5 level Staphylococcus aureus bacteremia with sepsis Sepsis due to cellulitis Hypokalemia Abrasion of knee Frequent falls Generalized weakness Hypomagnesemia Sepsis Fever of unknown origin Generalized pain Contusion of face Hypomagnesemia Opiate dependence Hypotension Toxic metabolic encephalopathy Hyperphosphatemia Hypomagnesemia Hypocalcemia Acute hyponatremia Dizziness QUENTIN (acute kidney injury) CHI (closed head injury) Acute flank pain Kidney stones History of pneumonia (03/2025) Ocular hypertension Ulcerative colitis Mixed hyperlipidemia Lumbar stenosis with neurogenic claudication Idiopathic polyneuropathy Essential tremor Demyelinating disease Compartment syndrome of lower extremity (02/2025) Chronic venous insufficiency Back pain at L4-L5 level Arthralgia Depression with anxiety Hx of fall (11/2024) History of dysphagia Hematuria On home O2 History of recent hospitalization Sepsis Pyelonephritis Urinary tract obstruction due to kidney stone Lactic acidosis LPRD (laryngopharyngeal reflux disease) Severe obesity (BMI 35.0-35.9 with comorbidity) Uncontrolled type 2 diabetes mellitus with hyperglycemia Hypothyroidism Hypertension Non-occlusive coronary artery disease Acute dehydration Witnessed seizure-like activity Nonepileptic episode Chronic narcotic dependence COPD with exacerbation (03/2025) Anti-cyclic citrullinated peptide antibody positive Restrictive lung disease Abnormal PFTs (pulmonary function tests) 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 Secondary adrenal insufficiency Transient alteration of awareness Chronic adrenal insufficiency Leukocytosis Acute asthma exacerbation Acute on chronic hypoxic respiratory failure Migraine Hematoma Growth hormone deficiency Diaphoresis Acute hypoxic respiratory failure Influenza A (12/2024) Status epilepticus (09/13/24) Knee hemarthrosis, right (09/13/24) Acute on chronic anemia (09/13/24) Acute metabolic encephalopathy (09/13/24) Laceration of toe of right foot Closed fracture of right fibula with malunion Right fibular fracture Acute on chronic respiratory failure with hypoxia and hypercapnia Shortness of breath Chronic respiratory failure with hypoxia Obesity CKD (chronic kidney disease), stage III Peripheral edema Atrial fibrillation (02/15/24) Chronic low back pain Panhypopituitarism Toxic encephalopathy Chest pain Acute dyspnea Acute CHF Hypoglycemia Syncope and collapse Internal hemorrhoids Recurrent seizures (05/01/25) Pituitary diabetes insipidus Spondylolysis, lumbar region Right lumbar radiculopathy HTN (hypertension) Adrenal insufficiency Pituitary adenoma Hyperactive gag reflex BRCA gene positive Family history of BRCA gene mutation PTSD (post-traumatic stress disorder) Epidural lipomatosis Chronic left sacroiliac pain Benzodiazepine overdose Presence of cardiac device Hx of fracture of foot Fracture of fibula, right, closed Cerebral concussion Orthostatic hypotension Sensorineural hearing loss of both ears Rectal bleeding History of COVID-19 Mitral valve regurgitation Vertigo Lower extremity edema Elevated LFTs Bilateral hand pain Pituitary neoplasm Prostate mass Bladder mass Surgical History Presence of Watchman left atrial appendage closure device (02/2024) History of arthroplasty of left knee (2014) S/P TURP (status post transurethral resection of prostate) History of lumbar fusion (07/2022) History of cardiac cath (07/2021) S/P epidural steroid injection History of lithotripsy Status post right foot surgery History of bladder surgery History of prostate surgery (2016) History of colonoscopy History of esophagogastroduodenoscopy (EGD) History of tooth extraction History of wisdom tooth extraction History of brain surgery Family History Grandmother (Paternal) Family history of diabetes mellitus Aunt Family history of diabetes mellitus Uncle Family history of diabetes mellitus Father Prostate cancer Heart disease Osteoarthritis Mother Cardiac disorder Grandmother (Maternal) Myocardial infarction Other Asthma Cancer Hypertension No family history of adverse response to anesthesia No family history of bleeding disorder Stroke Denies family history of Ovarian cancer Breast cancer Colorectal cancer Social History Smoking Status: Never smoker Tobacco Type: Smokeless Tobacco (Dip or Chew) Second Hand Exposure: No; Do You Dip or Chew Tobacco: No; Hx Alcohol Use: No Hx Substance Use: No Preferred Language: [place]rugu[place] Communication Ability: Effective Communication Ability Comment: Unable to obtain due to patient condition. Visual Impairment: Limited Hearing Ability: Normal Biomedical Engineering Director Required: No Beliefs That Will Affect Care: None marital status: Single Current Living Situation: Family Current Living Situation Comment: and daughter in [place] current occupational status: disabled How many Children do You have: 3 How many Children do You have Comment: able to assist with care if needed Feels Safe at Home: Yes Childhood Exposure to Second-Hand Smoke: Yes (parents smoked) Diet: regular Diet Comment: going to be starting low carb/low calorie diet. caffeine: No (1/2 20 oz bottle of mountain dew. ) during the past year weight has: increased > 10 lbs Physical Activity Frequency: Daily Physical Activity Frequency Comment: walking, 1.5 miles daily. Seatbelt Use: always Do you think of yourself as: straight/heterosexual Gender Identity: Male Assistive Devices: Oxygen - at Night and Walker Physical Exam Vital Signs Vital Signs - 24 hr 07/02/25 10:15 07/02/25 10:17 07/02/25 10:21 Temperature Temperature Source Pulse Rate 92 H 92 H Pulse Rate [Apical] Pulse Rate from SpO2 Sensor Respiratory Rate 20 Respiratory Effort / Characteristics Non-Labored Spontaneous Respiratory Depth Normal Respiratory Pattern Regular Blood Pressure 107/71 107/71 Blood Pressure [Right Arm] Blood Pressure Mean 88 83 Blood Pressure Mean [Right Arm] Pulse Oximetry 95 Oxygen Delivery Method Room Air Sepsis Recent Fever Within 48 Hours No Sepsis New/Unexplained Change in Mental Status No Sepsis Action Taken by Nursing No Action Required 07/02/25 10:30 07/02/25 10:33 07/02/25 10:53 Temperature Temperature Source Pulse Rate 91 H 89 Pulse Rate [Apical] Pulse Rate from SpO2 Sensor 91 H 89 Respiratory Rate 16 Respiratory Effort / Characteristics Respiratory Depth Respiratory Pattern Blood Pressure 99/68 L Blood Pressure [Right Arm] Blood Pressure Mean 73 Blood Pressure Mean [Right Arm] Pulse Oximetry 94 97 Oxygen Delivery Method Room Air Room Air Sepsis Recent Fever Within 48 Hours Sepsis New/Unexplained Change in Mental Status Sepsis Action Taken by Nursing 07/02/25 10:55 07/02/25 11:01 07/02/25 11:11 Temperature Temperature Source Pulse Rate 88 Pulse Rate [Apical] Pulse Rate from SpO2 Sensor 89 Respiratory Rate Respiratory Effort / Characteristics Respiratory Depth Respiratory Pattern Blood Pressure 96/69 L Blood Pressure [Right Arm] 90/52 L Blood Pressure Mean 74 Blood Pressure Mean [Right Arm] 64 Pulse Oximetry 95 Oxygen Delivery Method Sepsis Recent Fever Within 48 Hours Sepsis New/Unexplained Change in Mental Status Sepsis Action Taken by Nursing 07/02/25 11:13 07/02/25 11:14 07/02/25 11:14 Temperature 36.8 C Temperature Source Oral Pulse Rate 89 Pulse Rate [Apical] Pulse Rate from SpO2 Sensor 89 Respiratory Rate 17 23 Respiratory Effort / Characteristics Respiratory Depth Normal Respiratory Pattern Blood Pressure Blood Pressure [Right Arm] Blood Pressure Mean Blood Pressure Mean [Right Arm] Pulse Oximetry 95 Oxygen Delivery Method Sepsis Recent Fever Within 48 Hours Sepsis New/Unexplained Change in Mental Status Sepsis Action Taken by Nursing 07/02/25 11:15 07/02/25 11:15 07/02/25 11:15 Temperature Temperature Source Pulse Rate Pulse Rate [Apical] Pulse Rate from SpO2 Sensor Respiratory Rate Respiratory Effort / Characteristics Respiratory Depth Respiratory Pattern Blood Pressure 110/68 110/68 110/68 Blood Pressure [Right Arm] Blood Pressure Mean 83 83 83 Blood Pressure Mean [Right Arm] Pulse Oximetry Oxygen Delivery Method Sepsis Recent Fever Within 48 Hours Sepsis New/Unexplained Change in Mental Status Sepsis Action Taken by Nursing 07/02/25 11:26 07/02/25 11:30 07/02/25 11:30 Temperature Temperature Source Pulse Rate 89 Pulse Rate [Apical] Pulse Rate from SpO2 Sensor 89 Respiratory Rate 20 Respiratory Effort / Characteristics Respiratory Depth Respiratory Pattern Blood Pressure 106/68 106/68 Blood Pressure [Right Arm] Blood Pressure Mean 90 90 Blood Pressure Mean [Right Arm] Pulse Oximetry 96 Oxygen Delivery Method Sepsis Recent Fever Within 48 Hours Sepsis New/Unexplained Change in Mental Status Sepsis Action Taken by Nursing 07/02/25 11:37 07/02/25 11:41 07/02/25 11:45 Temperature 36.8 C Temperature Source Oral Pulse Rate 90 89 Pulse Rate [Apical] Pulse Rate from SpO2 Sensor 89 Respiratory Rate 18 22 Respiratory Effort / Characteristics Respiratory Depth Respiratory Pattern Blood Pressure 106/68 111/70 Blood Pressure [Right Arm] Blood Pressure Mean 80 89 Blood Pressure Mean [Right Arm] Pulse Oximetry 97 96 Oxygen Delivery Method Sepsis Recent Fever Within 48 Hours Sepsis New/Unexplained Change in Mental Status Sepsis Action Taken by Nursing 07/02/25 11:45 08/12/25 11:45 07/02/25 11:51 Temperature 36.7 C Temperature Source Oral Pulse Rate 91 H Pulse Rate [Apical] Pulse Rate from SpO2 Sensor Respiratory Rate 16 Respiratory Effort / Characteristics Respiratory Depth Respiratory Pattern Blood Pressure 111/70 111/70 111/70 Blood Pressure [Right Arm] Blood Pressure Mean 89 89 83 Blood Pressure Mean [Right Arm] Pulse Oximetry 97 Oxygen Delivery Method Sepsis Recent Fever Within 48 Hours Sepsis New/Unexplained Change in Mental Status Sepsis Action Taken by Nursing 07/02/25 11:53 07/02/25 11:56 07/02/25 11:56 Temperature 36.8 C Temperature Source Oral Pulse Rate 91 H Pulse Rate [Apical] Pulse Rate from SpO2 Sensor Respiratory Rate 16 Respiratory Effort / Characteristics Respiratory Depth Respiratory Pattern Blood Pressure 105/57 L 105/57 L 105/57 L Blood Pressure [Right Arm] Blood Pressure Mean 73 79 79 Blood Pressure Mean [Right Arm] Pulse Oximetry 97 Oxygen Delivery Method Sepsis Recent Fever Within 48 Hours Sepsis New/Unexplained Change in Mental Status Sepsis Action Taken by Nursing 07/02/25 11:59 07/02/25 12:06 07/02/25 12:08 Temperature 36.8 C Temperature Source Oral Pulse Rate 92 H 89 Pulse Rate [Apical] Pulse Rate from SpO2 Sensor 92 H Respiratory Rate 15 15 Respiratory Effort / Characteristics Respiratory Depth Respiratory Pattern Blood Pressure 115/29 L 108/62 Blood Pressure [Right Arm] Blood Pressure Mean 84 77 Blood Pressure Mean [Right Arm] Pulse Oximetry 97 99 Oxygen Delivery Method Sepsis Recent Fever Within 48 Hours Sepsis New/Unexplained Change in Mental Status Sepsis Action Taken by Nursing 07/02/25 12:09 07/02/25 12:10 07/02/25 12:10 Temperature Temperature Source Pulse Rate 90 Pulse Rate [Apical] Pulse Rate from SpO2 Sensor 90 Respiratory Rate 16 Respiratory Effort / Characteristics Respiratory Depth Respiratory Pattern Blood Pressure 108/62 108/62 Blood Pressure [Right Arm] Blood Pressure Mean 65 65 Blood Pressure Mean [Right Arm] Pulse Oximetry 98 Oxygen Delivery Method Sepsis Recent Fever Within 48 Hours Sepsis New/Unexplained Change in Mental Status Sepsis Action Taken by Nursing 07/02/25 12:15 07/02/25 12:18 07/02/25 12:19 Temperature Temperature Source Pulse Rate 90 91 H Pulse Rate [Apical] Pulse Rate from SpO2 Sensor 91 H Respiratory Rate 15 20 Respiratory Effort / Characteristics Respiratory Depth Respiratory Pattern Blood Pressure 115/67 Blood Pressure [Right Arm] Blood Pressure Mean 81 Blood Pressure Mean [Right Arm] Pulse Oximetry 94 Oxygen Delivery Method Sepsis Recent Fever Within 48 Hours Sepsis New/Unexplained Change in Mental Status Sepsis Action Taken by Nursing 07/02/25 12:19 07/02/25 12:38 07/02/25 13:02 Temperature 36.9 C Temperature Source Oral Pulse Rate 90 Pulse Rate [Apical] 92 H Pulse Rate from SpO2 Sensor Respiratory Rate 16 14 Respiratory Effort / Characteristics Respiratory Depth Respiratory Pattern Blood Pressure 115/67 106/64 Blood Pressure [Right Arm] 104/57 L Blood Pressure Mean 81 78 Blood Pressure Mean [Right Arm] 72 Pulse Oximetry 96 96 Oxygen Delivery Method Sepsis Recent Fever Within 48 Hours Sepsis New/Unexplained Change in Mental Status Sepsis Action Taken by Nursing GENERAL APPEARANCE: well nourished PSYCH: no acute distress NEURO: Alert and oriented x3 EENT: Sclera anicteric, conjunctiva pink. No oral lesions, mouth sores. Oral mucosa moist and pink. No cervical, supraclavicular, infraclavicular or axillary adenopathy No thyromegaly. CARDIAC: Normal S1 and S2. No S3, S4 or rubs, murmurs or gallops. Rhythm is regular. LUNGS: Clear to auscultation without rales, rhonchi, wheezing or diminished breath sounds. ABDOMEN: Positive bowel sounds. Soft, nondistended. Tenderness to palpation of RUQ and RLQ.. No guarding or rebound. No masses or hernias. No hepatosplenomegaly. EXTREMITIES: No significant deformity or joint abnormality. No edema, cyanosis or clubbing. Peripheral pulses intact. No sign of DVT SKIN: Skin normal color, texture and turgor with no lesions or eruptions. Constitutional WD/WN, vitals as above well developed, + morbidly obese and cooperative; no acute distress Eyes PERRL, conjunctivae normal, anicteric sclerae ENMT external ear and nose normal, oropharynx normal Neck trachea midline, no thyromegaly Respiratory normal respiratory effort, lungs clear to auscultation Cardiovascular RRR, no murmur, no edema Gastrointestinal (Abdomen) Inspection/Auscultation: abdomen normal to inspection Percussion/Palpation: + abdomen tender (RLQ and RUQ) and abdomen soft; no guarding Musculoskeletal no cyanosis or clubbing, extremities motor strength 5/5 Skin no rashes, warm and dry Neurologic PERRL, EOMI, accommodation nl, no face palsy, no dysarthria Psychiatric A+Ox3, euthymic affect Course Course Sterling Leiva is a 55 y/o M PMHx asthma/COPD, atrial fibrillation on aspirin and Plavix, and psychogenic nonepileptic seizure presents to the ED via EMS for evaluation of GI bleeding. Reports multiple episodes of bloody diarrhea yesterday, associated with right lower abdominal pain, N/V. Reports has not been able to tolerate foods because everything he eats makes him vomit. Denies bloody emesis. Patient also states he fell this morning while walking into his walk-in freezer. Reports he has been dizzy and lost his balance, causing the fall. Patient does state he hit is head when he fell. Endorses neck pain. Denies LOC. Of note, patient was recently seen in ED on 06/26 for acute encephalopathy secondary to a fall at home. Denies chest pain, SOB, palpitations. On evaluation, patient was tired-appearing but no obvious distress. C-collar in place given head injury and neck pain. Slightly hypotensive at 96/69 otherwise vitals are stable. Physical exam is positive for tenderness to palpation of the RUQ and RLQ. Abdomen is soft without guarding .There is no obvious deformity of upper and lower extremities bilaterally. Patient responding appropriately, A&Ox3. POC H&H 6.8 & 20. CBC completed with H&H 7.8 & 23.8. Will continue to plan for transfusion of 2 units packed red blood cells, given lower GI bleeding in the status of anticoagulation and soft blood pressures. CT head, neck, thoracic, and lumbar spine ordered and results pending. Will continue observation, serial abdominal exams, and re-evaluation. Administered Medications Discontinued Medications Pantoprazole Sodium 80 mg/ (Dextrose) 120 mls @ 480 mls/hr IV ONE STA Stop: 07/02/25 11:00 Last Infusion: 07/02/25 11:44 Dose: Infused Documented By: Admin: 07/02/25 11:08 Dose: 480 mls/hr Documented By: ANAMARIA Medical Decision Making Differential Diagnosis lower GI bleeding Medical Records Attestation: I reviewed the patient's medical records. Home Medications Current Medication List: was personally reviewed by me Laboratory Data Attestation: I reviewed the patient's lab results. 07/02/25 10:15 07/02/25 10:15 Lab Results 07/02/25 07/02/25 07/02/25 Range/Units 10:12 10:15 10:23 WBC 5.00 (4.8-10.8) K/ul RBC 2.78 L (4.70-6.10) M/uL Hgb 7.8 L (14.0-18.0) g/dl POC Hgb 6.8 L* (14.0-18.0) g/dl Hct 23.8 L (42.0-52.0) % POC Hct 20 L* (42-52) % MCV 85.6 (80.0-100.0) fL MCH 28.1 (25.0-34.0) pg MCHC 32.8 (32.0-36.0) g/dL RDW Std Deviation 46.3 (36.4-46.3) fL RDW Coeff of Yanira 14.7 H (11.5-14.5) % Plt Count 162 (130-400) K/uL MPV 8.9 L (9.4-12.4) fL PT 13.0 H (9.0-12.0) Seconds INR 1.2 H (0.9-1.1) APTT 33 H (21-31) Seconds PTT Ratio 1.2 POC Sodium 136 (135-144) mmol/L Sodium 136 (136-145) mmol/L POC Potassium 4.4 (3.3-5.0) mmol/L Potassium 4.4 (3.5-5.1) mmol/L POC Chloride 101 (101-112) mmol/L Chloride 103 (98-107) mmol/L Carbon Dioxide 23 (21-32) mmol/L POC Total CO2 22 L (24-31) mmol/L Anion Gap 10 (3-11) POC Anion Gap 19.0 (16-25) mmol/L POC BUN 6 L (7-18) mg/dl BUN 8 (6-23) mg/dl Creatinine 2.54 H (0.6-1.4) mg/dl POC Creatinine 2.7 H (0.6-1.3) mg/dl Est Cr Clr Drug Dosing 40.6 ml/min eGFR 28.68 BUN/Creatinine Ratio 3.1 L (10-20) Glucose 90 (70-99(Fasting)) mg/dl POC Glucose 87 (70-99) mg/dl POC Glucose (other) 87 (70-99) mg/dl Calcium 8.2 L (8.6-10.3) mg/dl POC Ioniz Calcium Jeny 1.11 L (1.12-1.32) mmol/l Total Bilirubin 0.5 (0.2-1.0) mg/dl AST 46 H (13-39) U/L ALT 45 (7-52) U/L Alkaline Phosphatase 51 (34-104) U/L Troponin I High Sens 4.0 (0-20) pg/ml Total Protein 5.0 L (6.0-8.3) gm/dl Albumin 3.2 L (3.4-5.0) gm/dl Globulin 1.8 L (2.5-4.0) gm/dl Albumin/Globulin Ratio 1.8 (0.9-2) Blood Type Antibody Screen Crossmatch 07/02/25 Range/Units 10:29 WBC (4.8-10.8) K/ul RBC (4.70-6.10) M/uL Hgb (14.0-18.0) g/dl POC Hgb (14.0-18.0) g/dl Hct (42.0-52.0) % POC Hct (42-52) % MCV (80.0-100.0) fL MCH (25.0-34.0) pg MCHC (32.0-36.0) g/dL RDW Std Deviation (36.4-46.3) fL RDW Coeff of Yanira (11.5-14.5) % Plt Count (130-400) K/uL MPV (9.4-12.4) fL PT (9.0-12.0) Seconds INR (0.9-1.1) APTT (21-31) Seconds PTT Ratio POC Sodium (135-144) mmol/L Sodium (136-145) mmol/L POC Potassium (3.3-5.0) mmol/L Potassium (3.5-5.1) mmol/L POC Chloride (101-112) mmol/L Chloride (98-107) mmol/L Carbon Dioxide (21-32) mmol/L POC Total CO2 (24-31) mmol/L Anion Gap (3-11) POC Anion Gap (16-25) mmol/L POC BUN (7-18) mg/dl BUN (6-23) mg/dl Creatinine (0.6-1.4) mg/dl POC Creatinine (0.6-1.3) mg/dl Est Cr Clr Drug Dosing ml/min eGFR BUN/Creatinine Ratio (10-20) Glucose (70-99(Fasting)) mg/dl POC Glucose (70-99) mg/dl POC Glucose (other) (70-99) mg/dl Calcium (8.6-10.3) mg/dl POC Ioniz Calcium Jeny (1.12-1.32) mmol/l Total Bilirubin (0.2-1.0) mg/dl AST (13-39) U/L ALT (7-52) U/L Alkaline Phosphatase (34-104) U/L Troponin I High Sens (0-20) pg/ml Total Protein (6.0-8.3) gm/dl Albumin (3.4-5.0) gm/dl Globulin (2.5-4.0) gm/dl Albumin/Globulin Ratio (0.9-2) Blood Type A Negative Antibody Screen NEGATIVE Crossmatch See Detail Imaging Data Radiologist's Impression: Cervical Spine CT 07/02/25 10:32 CT cervical spine wo con CT DOSE: 1298.04 mGy.cm CLINICAL HISTORY: fall. COMPARISON: 06/26/2025 TECHNIQUE: Multiple axial CT images of the cervical spine were obtained without contrast. A dose lowering technique was utilized adhering to the principles of ALARA. FINDINGS: There are degenerative changes at C4-5. No fracture or subluxation seen. IMPRESSION: No cervical spine fracture seen. ACT 112: Negative or not required by law. The above report was generated using voice recognition software. It may contain grammatical, syntax or spelling errors. Electronically signed by: Keon Crump M.D. 07/02/2025 10:[address] 07/02/25 10:32 CT head/brain wo con CLINICAL HISTORY: 55 years-old Male with fall. Acute head injury status post fall TECHNIQUE: Multiple axial CT images of the head were obtained without contrast. A dose lowering technique was utilized adhering to the principles of ALARA. COMPARISON: 06/26/2025 FINDINGS: No acute intracranial hemorrhage, midline shift, intra-axial mass, hydrocephalus, territorial ischemia or abnormal extra-axial collection. Garrett cisterna magna versus arachnoid cyst on image 11 series 2 is unchanged measuring up to 5.9 cm. The calvarium is intact. Partially empty sella. Prior bilateral lens repair. The paranasal sinuses, mastoid air cells, and middle ear cavities are clear. IMPRESSION: No acute intracranial abnormality or calvarial fracture. ACT 112: Negative or not required by law. The above report was generated using voice recognition software. It may contain grammatical, syntax or spelling errors. Electronically signed by: Bean Tolentino M.D. 07/02/2025 11:16 AM Abdomen/Pelvis CT 07/02/25 10:[address] WITHOUT CONTRAST CT DOSE: 3245 HISTORY: Fall. GI bleed TECHNIQUE: Multiaxial CT images of the abdomen and pelvis were performed without contrast. A dose lowering technique was utilized adhering to the principles of ALARA. COMPARISON STUDY: 06/12/2025 FINDINGS: There is mild dependent scarring or atelectasis in the lung bases. ABDOMEN: Liver, gallbladder, spleen, pancreas, adrenal glands, and kidneys show no evidence of acute injury on this noncontrast exam. There is no hydronephrosis. There are scattered atherosclerotic calcifications. No abdominal aortic aneurysm. Pelvis: Prostate is mildly enlarged with multiple calcifications. Urinary bladder is decompressed. There are a few colonic diverticula without evidence of acute diverticulitis. Normal appendix. No bowel inflammation or obstruction seen. No free fluid, free air, or abscess. No enlarged adenopathy. No hematoma seen. Osseous structures: No acute fracture seen at the visualized osseous structures. IMPRESSION: No acute findings seen. Otherwise as described. ACT 112: Negative or not required by law. The above report was generated using voice recognition software. It may contain grammatical, syntax or spelling errors. Electronically signed by: Keon Crump M.D. 07/02/2025 11:[address] 07/02/25 10:42 CT lumbar spine wo con CLINICAL HISTORY: fall/ back pain COMPARISON STUDY: 06/12/2025 FINDINGS: Stable posterior metallic fusion at L5-S1. Stable grade 1 anterolisthesis of L5 on S1. Stable minimal retrolisthesis of L4 on 5. Otherwise normal alignment. No lumbar spine fracture seen. IMPRESSION: No lumbar spine fracture seen. ACT 112: Negative or not required by law. Electronically signed by: Keon Crump M.D. 07/02/2025 11:[address] 07/02/25 10:42 CT thoracic spine wo con HISTORY: 55 years-old Male fall/ back pain acute mid back pain status post fall COMPARISON: CT lumbar spine of same day, and also 06/12/2025, chest CT 05/29/2025 TECHNIQUE: Multiple axial CT images of the thoracic spine were obtained without IV contrast. A dose lowering technique was used consistent with the principals of ALARA. FINDINGS: Mild multilevel intervertebral disc space narrowing with mild to moderate spondylitic spurring and moderate facet arthrosis. No acute fracture or subluxation identified. No high-grade central canal or neural foraminal narrowing identified. A few tiny annular disc bulges are noted. Coronary artery calcifications. Left atrial occlusion device. Dependent bibasilar atelectasis. Hepatic steatosis. IMPRESSION: No acute fracture or subluxation identified. ACT 112: Negative or not required by law. The above report was generated using voice recognition software. It may contain grammatical, syntax or spelling errors. Electronically signed by: Bean Tolentino M.D. 07/02/2025 11:48 AM MDM Narrative Patient is a 55 y/o M presenting for evaluation of lower GI bleed in the setting of anticoagulation. POC H&H 6.8 & 20 on arrival. CBC resulted 7.8 & 23.8. Imaging of head/neck/thoracic/lumbar spine without acute pathology. CT abdomen/pelvis resulted showing no acute pathology. Patient was discussed with my attending, Dr. Jason, who will continue patient care at this time. Impression & Plan Hematochezia Discharge Plan Visit Data Chief Complaint: GI Bleed Stated Complaint: INJURY ALERT, GI BLEED, DIZZY, VOMITING ED Provider: Prince Jason Discharge Problem: Hematochezia Patient Disposition: Home - Self-Care Condition: Fair Forms Stand Alone Forms: My [facility], Important Visit Information Prescriptions Prescriptions: No Action clopidogrel [Plavix] 75 mg tablet 75 mg PO QPM fluticasone propionate [Flonase Allergy Relief] 50 mcg/actuation spray,suspension 1 spray intranasal HS PRN (Reason: allergy symptoms) Qty: 16 0RF Rx Instructions: administer into each nostril (DME) insulin syringe-needle U-100 [BD Insulin Syringe Ultra-Fine] 1 mL 30 gauge x 1/2" syringe See Rx Instructions .Route Qty: 300 1RF Rx Instructions: use tid (DME) OneTouch Verio test strips Strip See Rx Instructions .MEDSUPPLY Qty: 150 5RF Rx Instructions: check blood sugars 4 times a day (DME) blood-glucose meter [OneTouch Verio Reflect Meter] Misc See Rx Instructions miscellaneous .MEDSUPPLY Qty: 1 0RF Rx Instructions: As directed (DME) lancets [OneTouch Delica Plus Lancet] 33 gauge misc See Rx Instructions .MEDSUPPLY Qty: 150 5RF Rx Instructions: As directed check blood sugars 4 times a day rosuvastatin 20 mg tablet 20 mg PO QAM Qty: 90 2RF (DME) pen needle, diabetic [BD Vy 2nd Gen Pen Needle] 32 gauge x 5/32" needle See Rx Instructions miscellaneous .MEDSUPPLY Qty: 100 3RF Rx Instructions: inject with a new pen needle daily lorazepam 0.5 mg tablet 0.5 mg PO DAILY PRN (Reason: Seizure Activity) levetiracetam 1,000 mg tablet 1,000 mg PO Q12H Qty: 60 6RF metoprolol succinate 25 mg tablet extended release 24 hr 25 mg PO HS Qty: 90 3RF lacosamide 150 mg tablet 150 mg PO BID Qty: 60 5RF (DME) Oxygen Home Liters Per Minute See Rx Instructions .Route Rx Instructions: 4 L o2 via NC As directed, testosterone 20.25 mg/1.25 gram (1.62 %) gel in metered-dose pump 2 pump TOP PM Qty: 75 5RF Rx Instructions: apply 1 pump amount over max area of EACH upper arm and shoulder PDMP Queried ok to fill 03/17/2023 DS cholecalciferol (vitamin D3) 50 mcg (2,000 unit) capsule 50 mcg PO QPM Qty: 90 1RF levothyroxine [Synthroid] 150 mcg tablet 150 mcg PO DAILYBB Qty: 30 5RF (DME) FreeStyle Rosalie 2 Sensor Kit See Rx Instructions .Route Qty: 6 3RF Rx Instructions: Change every 14 days desmopressin 0.2 mg tablet 0.4 mg PO BID Qty: 120 5RF (DME) FreeStyle Rosalie 2 Plus Sensor Device See Rx Instructions .Route Qty: 6 3RF Rx Instructions: change every 15 days dutasteride 0.5 mg capsule 0.5 mg PO QAM Qty: 90 2RF Rx Instructions: TAKE 1 CAPSULE BY MOUTH DAILY IN THE MORNING (DME) FreeStyle Rosalie 2 Applegate Misc See Rx Instructions .Route Qty: 1 0RF Rx Instructions: Check blood glucose before each meal mirtazapine [Remeron] 30 mg tablet 30 mg PO HS prazosin 5 mg capsule 5 mg PO HS (DME) nebulizers [Compact Compressor Nebulizer[place] [facility] [place]ructions .Route Qty: 1 0RF Rx Instructions: One compact compressor nebulizer. Use as directed. Please include tubing, mouth piece and cup. ipratropium-albuterol 0.5 mg-3 mg(2.5 mg base)/3 mL solution for nebulization 3 ml inhalation QID PRN (Reason: wheezing) Qty: 90 0RF ondansetron 8 mg tablet,disintegrating 8 mg PO Q8H PRN (Reason: nausea and vomiting) Qty: 30 0RF insulin glargine [Lantus Solostar U-100 Insulin] 100 unit/mL (3 mL) insulin pen 4 unit SUBCUT HS Qty: 15 0RF Hold Instructions: Has been on hold for a few weeks per pt lisinopril 5 mg tablet 5 mg PO DAILY Qty: 30 5RF metformin 1,000 mg tablet 1,000 mg PO DAILY Qty: 90 3RF Hold Instructions: Per Dr Voss to hold as of 11/23/22 oxycodone 5 mg tablet 5 mg PO TID PRN (Reason: pain) Qty: 84 0RF Rx Instructions: 3 tablet dose albuterol sulfate [Ventolin HFA] 90 mcg/actuation HFA aerosol inhaler 2 inh inhalation Q6H PRN (Reason: shortness of breath or wheezing) Qty: 6.7 2RF arformoterol [Brovana] 15 mcg/2 mL solution for nebulization 2 ml inhalation BID Qty: 120 7RF budesonide 0.5 mg/2 mL suspension for nebulization 0.5 mg inhalation BID Qty: 60 7RF Spiriva Respimat 2.5 mcg/actuation mist 2 puff inhalation DAILY Qty: 4 7RF ascorbic acid (vitamin C) 250 mg tablet 250 mg PO BID Qty: 60 2RF hydrocortisone 10 mg tablet 10 - 20 mg PO DIRECTED Rx Instructions: 2 tabs (20mg) in AM, 2 tab (10mg) in PM double dose in times of stress magnesium oxide 400 mg (241.3 mg magnesium) tablet 400 mg PO HS propranolol 120 mg capsule,extended release 24hr 120 mg PO HS sodium chloride 7 % solution for nebulization 1 inh inhalation BID Qty: 240 3RF acetylcysteine 200 mg/mL (20 %) solution 2 ml inhalation BID PRN (Reason: Chest congestion) Qty: 100 6RF Baqsimi 3 mg/actuation spray,non-aerosol 3 mg intranasal ONCE PRN (Reason: Severe Hypoglycemia) Rx Instructions: for treatment of severe hypoglycemia, second dose may be given if patient does not respond after 15 minutes . Per caregiver, pt has never has to use this medication. vitamin B complex [Vitamins B Complex] Capsule 1 cap PO QAM Qty: 30 0RF venlafaxine 150 mg capsule,extended release 24hr 150 mg PO QAM quetiapine 50 mg tablet extended release 24 hr 50 mg PO QAM duloxetine 30 mg capsule,delayed release(DR/EC) 30 mg PO HS Qty: 30 0RF Norditropin FlexPro 5 mg/1.5 mL (3.3 mg/mL) pen injector 3 mg SQ QPM sumatriptan succinate 50 mg Tablet 0 mg PO .COMPLEX PRN (Reason: Migraine Headache) Rx Instructions: UNABLE TO VERIFY STRENGTH, PT UNSURE. take 1 tab at onset of headache; if no relief may repeat 1 tab after at least 2 hrs; max = 4 tabs/24 hr aripiprazole 5 mg tablet 5 mg PO QAM divalproex 500 mg tablet,delayed release (DR/EC) 1,000 mg PO QAM duloxetine 60 mg capsule,delayed release(DR/EC) 60 mg PO QAM aspirin 81 mg capsule 81 mg PO QPM Hold Instructions: Resume on 06/12/25. Hold OFF aspirin while you are taking linezolid 600mg PO bid (05/31/2025 pm through 06/11/2025 pm) as linezolid can lower your platelet count. Restart aspirin on 06/12/2025 am. naloxone [Narcan] 4 mg/actuation spray,non-aerosol 1 spray intranasal ONCE PRN (Reason: opioid overdose) Qty: 2 2RF Mounjaro 5 mg/0.5 mL pen injector 5 mg SUBCUT WK Rx Instructions: sundays zinc sulfate [Orazinc] 50 mg zinc (220 mg) Capsule 200 mg PO QAM Qty: 0 0RF Rx Instructions: buy over the counter, reduce to 1 cap after 2-4 weeks ferrous sulfate 325 mg (65 mg iron) tablet 325 mg PO Q48H Qty: 60 2RF Referrals Referrals: Larry Amaral MD [Primary Care Provider] - Addendum July 02, 2025 13:18 Teaching Physician Attestation by Dr. Jason: I personally saw and examined the patient. I have reviewed and agree with the residents findings including all diagnostic interpretations, and treatment plans as written. I was present for the tinoco portions of any procedures performed ALL INFORMATION BELOW HAS BEEN PROVIDED EXCLUSIVELY BY THE ED (TEACHING) PHYSICIAN: 1) I have personally performed tinoco portions of the medical history, physical examination, and medical decision making. I have personally supervised all documented procedures, and I agree with the medical necessity to perform these, as well as the Residents description. I agree with the medical necessity to perform all documented lab and radiology tests on this patient. This entire note was authenticated by the ED (Teaching) Physician at the time of service. Additional Teaching physicians Summary of Findings and Medical Decision Making are noted below (or in a separate document): Patient is a 55-year-old male presents with bright red blood per rectum that started last night. He has also had multiple syncopal episodes over the past 24 hours where he has struck his head and neck. No focal neurologic deficits. GCS of 15. He was made an injury alert on arrival due to head injury on antiplatelets. Initial blood pressure for EMS was 76/49 however after 800 mL of fluid's arrival BP is 107/71. Patient not having any active rectal hemorrhage here in the ED. Hemoglobin is 7.8. Patient was typed and crossed for [address] imaging of the head shows no acute intracranial trauma. CT of the CT and L- spine negative for acute fracture or subluxation. CT of the abdomen and pelvis was done without contrast due to patient's chronic kidney disease. No acute abdominal or pelvic abnormalities noted on CT. No indication for reversal of antiplatelet agents at this time. Patient denies taking Eliquis for greater than 1 month. Will admit to hospitalist for workup of bright red blood per rectum.
--- NOTE | 2025-07-02 10:58 | CT Scan Report ---
CT cervical spine wo con CT DOSE: 1298.04 mGy.cm CLINICAL HISTORY: fall. COMPARISON: 06/26/2025 TECHNIQUE: Multiple axial CT images of the cervical spine were obtained without contrast. A dose low ering technique was utilized adhering to the principles of ALARA. FINDINGS: There are degenerative changes at C4-5. No fracture or subluxation seen. IMPRESSION: No cervical spine fracture seen. ACT 112: Negative or not required by law. The above report was generated using voice recognition software. It may contain grammatical, syntax o r spelling errors. Electronically signed by: Keon Crump M.D. 07/02/2025 10:56 AM
[2025-07-02] MEDS ORDERED: SODIUM CHLORIDE 0.9% 100 ML IV PRN (11:05)
--- NOTE | 2025-07-02 11:05 | CT Scan Report ---
CT lumbar spine wo con CLINICAL HISTORY: fall/ back pain COMPARISON STUDY: 06/12/2025 FINDINGS: Stable posterior metallic fusion at L5-S1. Stable grade 1 anterolisthesis of L5 on S1. Stab le minimal retrolisthesis of L4 on 5. Otherwise normal alignment. No lumbar spine fracture seen. IMPRESSION: No lumbar spine fracture seen. ACT 112: Negative or not required by law. Electronically signed by: Keon Crump M.D. 07/02/2025 11:03 AM
[2025-07-02 11:08] LABS: Alanine Aminotransferase 45.0 U/L (7-52); Albumin Globulin Ratio 1.8 (0.9-2); Alkaline Phosphatase 51.0 U/L (34-104); Anion Gap 10.0 (3-11); Bilirubin,Total 0.5 mg/dl (0.2-1.0); Blood Urea Nitrogen 8.0 mg/dl (6-23); Calcium 8.2 mg/dl (8.6-10.3); Carbon Dioxide 23.0 mmol/L (21-32); Chloride 103.0 mmol/L (98-107); Creatinine Clr Calc Pharmacy 40.6 ml/min; Globulin 1.8 gm/dl (2.5-4.0); Glucose 90.0 mg/dl (70-99(Fasting)); Potassium 4.4 mmol/L (3.5-5.1); Sodium 136.0 mmol/L (136-145); Total Protein 5.0 gm/dl (6.0-8.3)
--- NOTE | 2025-07-02 11:13 | CT Scan Report ---
ABDOMEN AND PELVIS CT WITHOUT CONTRAST CT DOSE: 3245 HISTORY: Fall. GI bleed TECHNIQUE: Multiaxial CT images of the abdomen and pelvis were performed without contrast. A dose lo wering technique was utilized adhering to the principles of ALARA. COMPARISON STUDY: 06/12/2025 FINDINGS: There is mild dependent scarring or atelectasis in the lung bases. ABDOMEN: Liver, gallbladder, spleen, pancreas, adrenal glands, and kidneys show no evidence of acute injury on this noncontrast exam. There is no hydronephrosis. There are scattered atherosclerotic calc ifications. No abdominal aortic aneurysm. Pelvis: Prostate is mildly enlarged with multiple calcifications. Urinary bladder is decompressed. Th ere are a few colonic diverticula without evidence of acute diverticulitis. Normal appendix. No bowel inflammation or obstruction seen. No free fluid, free air, or abscess. No enlarged adenopathy. No he matoma seen. Osseous structures: No acute fracture seen at the visualized osseous structures. IMPRESSION: No acute findings seen. Otherwise as described. ACT 112: Negative or not required by law. The above report was generated using voice recognition software. It may contain grammatical, syntax o r spelling errors. Electronically signed by: Keon Crump M.D. 07/02/2025 11:12 AM
--- NOTE | 2025-07-02 11:19 | CT Scan Report ---
CT head/brain wo con CLINICAL HISTORY: 55 years-old Male with fall. Acute head injury status post fall TECHNIQUE: Multiple axial CT images of the head were obtained without contrast. A dose lowering tech nique was utilized adhering to the principles of ALARA. COMPARISON: 06/26/2025 FINDINGS: No acute intracranial hemorrhage, midline shift, intra-axial mass, hydrocephalus, territorial ischemi a or abnormal extra-axial collection. Garrett cisterna magna versus arachnoid cyst on image 11 series 2 is unchanged measuring up to 5.9 cm. The calvarium is intact. Partially empty sella. Prior bilateral lens repair. The paranasal sinuses, m astoid air cells, and middle ear cavities are clear. IMPRESSION: No acute intracranial abnormality or calvarial fracture. ACT 112: Negative or not required by law. The above report was generated using voice recognition software. It may contain grammatical, syntax o r spelling errors. Electronically signed by: Bean Tolentino M.D. 07/02/2025 11:16 AM
[2025-07-02 11:37] LABS: INR 1.2 (0.9-1.1); Partial Thromboplastin Time 33 Seconds (21-31); Prothrombin Time 13.0 Seconds (9.0-12.0)
--- NOTE | 2025-07-02 11:50 | CT Scan Report ---
CT thoracic spine wo con HISTORY: 55 years-old Male fall/ back pain acute mid back pain status post fall COMPARISON: CT lumbar spine of same day, and also 06/12/2025, chest CT 05/29/2025 TECHNIQUE: Multiple axial CT images of the thoracic spine were obtained without IV contrast. A dose l owering technique was used consistent with the principals of LEONARDO. FINDINGS: Mild multilevel intervertebral disc space narrowing with mild to moderate spondylitic spurring and mo derate facet arthrosis. No acute fracture or subluxation identified. No high-grade central canal or n eural foraminal narrowing identified. A few tiny annular disc bulges are noted. Coronary artery calcifications. Left atrial occlusion device. Dependent bibasilar atelectasis. Hepati c steatosis. IMPRESSION: No acute fracture or subluxation identified. ACT 112: Negative or not required by law. The above report was generated using voice recognition software. It may contain grammatical, syntax o r spelling errors. Electronically signed by: Bean Tolentino M.D. 07/02/2025 11:48 AM
[2025-07-02] MEDS: ACETAMINOPHEN 1,000 MG/100 ML VIAL IV STA (13:20)
--- NOTE | 2025-07-02 13:39 | Electrocardiogram Report ---
Test Reason : Blood Pressure : */* mmHG Vent. Rate : 92 BPM Atrial Rate : 92 BPM P-R Int : 196 ms QRS Dur : 102 ms QT Int : 378 ms P-R-T Axes : 13 -12 -16 degrees QTcB Int : 467 ms Poor data quality, interpretation may be adversely affected Normal sinus rhythm Inferior infarct , age undetermined Abnormal ECG When compared with ECG of 26-Jun-2025 20:10, ST no longer depressed in Anterior leads T wave inversion now evident in Inferior leads Nonspecific T wave abnormality no longer evident in Anterior leads Confirmed by Larry Phillips ([id number]) on 07/02/2025 1:39:09 PM Referred By: REFERRED SELF Confirmed By: Larry Phillips
[2025-07-02] MEDS ORDERED: ONDANSETRON INJ 2 MG/ML 2 ML VIAL IV PRN (14:33)
[2025-07-02] MEDS ORDERED: ALUMINUM/MAGNESIUM SUSP 30 ML UDC PO PRN (14:33)
--- NOTE | 2025-07-02 14:44 | History & Physical Report ---
Date of Service July 02, 2025 Assessment & Plan (1) Hematochezia: (2) Blood loss anemia: Plan Anders Leiva is a 55 yo male with PMH of ulcerative colitis, A-fib (off eliquis), adrenal insufficiency, CKD, COPD (2 liter), PTSD, bipolar, anxiety disorder, hypothyroidism, LPRD, he's been having recurrent fall episodes. was just dc from our hospuital with dehydration, QUENTIN, urinary hesitancy. he's was orthostatic on that admission. at that time, bumex switched to PRN and there was plan to reduced his propranolol if falling episode persist. there also concern about polypharmacy from his psych med on 07/02, presented with blood loss anemia, QUENTIN on CKD and falling episode, he still on aspirin plavix, GI was consulted. s/p 2 units of pRBC by ED attending 1. blood loss anemia 2. QUENTIN on CKD 3. falling episodes 4. hx of ulcerative colitis 5. adrenal insufficiency 6. diabetes (insulin dependent) 7. CKD 8. COPD ( two liter) 9. seizure disorder 10. PTSD, bipolar, anxiety disorder, depression 11. urinary hesitancy, strong Fhx of prostate cancer 12. chronic back pain. overall plan rectal bleeding, QUENTIN, hold lisinopril s/p blood transfusion, trend h/h q8 hours GI consulted; he's stated last colonoscpoy was 2-3 years ago normally he's following with Dr. Betty douglas PT and OT eval likely will have lumbar and cervical MRI to eval his recurent may need to reduce his propranolol urinary hesistancy, bladder scan, f/u on PSA level 1. blood loss anemia s/p CT abdomen without contrast GI consulted. defer to their input about colonoscopy h/h q8 hours. 2. QUENTIN on CKD hold lisinopril, hold metformin lower dose of insulin. 3. falling episode, been having multiple fall f/u on MRI lumbar, Cervical spine MRI, orthostatic BP likely polypharmacy 4. 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 COPD 2 liter (he's on formterol, budesonide, duoneb, hypertonic saline) 6. adrenal insufficiency, hydrocortisone and desmopressin 7. A-fib, hypertension, he's on metoprolol 25mg ER, he's also on propranolol 120mg qHS 8. PTSD, bipolar, anxiety disorder, depression he's on prazosin 5mg, abilify 5mg qam, venlafaxine 150mg qAM he's also on cymbalta 50mg 9. diabetes he's usually on metformin 1000mg BID, this need to be renally dose he's on lantus 8 units qHS he's mounjaro 5mg sub-Q 10, hypothyroidism-synthyroid 150 mcg 11. HLD, strong FHx of heart disease, he's on cresto 20mg 12. BPH, he's on dusteride 0.5mg History of Present Illness Chief Complaint: rectal bleeding for 24 hours QUENTIN recurrent fall urinary hesitancy strong FHx of prostate cancer Primary Care Provider: Larry Amaral MD Mr. Anders Leiva is a 55 yo male with PMH of ulcerative colitis, A-fib s/p watchman, adrenal insufficiency, seizure disorder, tremor (on propranolol) diabetes. depression, PTSD, bipolar, COPD (2 liter). he's still on aspirin and plavix. Hospitalized from 06/26--06/27 for trouble urinating, falling and found to has QUENTIN, hemoconcentrated. his bumex was switched to PRN and there was concern for polypharmacy at that time. he's also was having limited appetite. our hospitalist collegaue was considerring cut down his other BP med and beta- benjamín if recurrent fall episodes. he's is on multiple different psych meds, but ED attending deferring adjusting his psych regime on 07/02/2025, he's presented to ED with rectal bleeding 4-5 times since yesterday; dizziness, found to be in QUENTIN on CKD . in addition, he was again having recurrent fall. he was also having nausea and vomiting and CT abdomen was completed. ED attending started him on 2 pRBC and s/p IV fluid. GI was consulted. given his falling episodes. CT head, C-spine, T spine and L-spine was completed. he's denied any easy bleeding or bruising he's denied taking eliquis. no chest pain, no shortness of breath he's been having constant dizziness sensation. Allergies Allergy/AdvReac Type Severity Reaction Status Date / Time clindamycin Allergy Intermediate SWELLING Verified 07/01/25 10:56 Iodinated Contrast Media Allergy Intermediate face/eye Verified 07/01/25 10:56 swelling Quinolones Allergy Intermediate HIVES Verified 07/01/25 10:56 tomato Allergy Intermediate swelling Verified 07/01/25 10:56 Home Medications Medication Instructions Recorded Confirmed Type mirtazapine 30 mg tablet (Remeron) 30 mg PO HS 06/23/22 07/02/25 History fluticasone propionate 50 1 spray intranasal HS PRN allergy 03/16/23 07/02/25 Rx mcg/actuation nasal symptoms #16 grams spray,suspension (Flonase Allergy Relief) FreeStyle Rosalie 2 [place] (flash #1 ea 05/13/23 07/01/25 Rx glucose scanning reader) blood sugar diagnostic (BioVigilant SystemsTouch #150 ea 11/22/23 07/01/25 Rx Verio test strips) blood-glucose meter (BioVigilant SystemsTouch #1 ea 11/22/23 07/01/25 Rx Verio Reflect Meter) insulin syringe-needle U-100 1 mL #300 ea 11/22/23 07/01/25 Rx 30 gauge x 1/2" (BD Insulin Syringe Ultra-Fine) lancets 33 gauge (OneTouch Delica #150 ea 11/22/23 07/01/25 Rx Plus Lancet) glucagon 3 mg/actuation nasal 3 mg intranasal ONCE PRN Severe 04/06/24 07/02/25 History spray (Baqsimi) Hypoglycemia aripiprazole 5 mg tablet 5 mg PO QAM 05/29/24 07/02/25 History ipratropium 0.5 mg-albuterol 3 mg 3 ml inhalation QID PRN wheezing 07/31/24 07/02/25 Rx (2.5 mg base)/3 mL nebulization #90 mL soln nebulizers (Compact Compressor #1 ea 07/31/24 07/01/25 Rx Nebulizer) rosuvastatin 20 mg tablet 20 mg PO QAM #90 tabs 09/19/24 07/02/25 Rx pen needle, diabetic 32 gauge x #100 ea 10/23/24 07/01/25 Rx 5/32" (BD Vy 2nd Gen Pen Needle) vitamin B complex (Vitamins B 1 cap PO QAM #30 caps 10/26/24 07/02/25 Rx Complex capsule) lorazepam 0.5 mg tablet 0.5 mg PO DAILY PRN Seizure 11/23/24 07/02/25 History Activity levetiracetam 1,000 mg tablet 1,000 mg PO Q12H #60 tabs 11/26/24 07/02/25 Rx metoprolol succinate 25 mg 25 mg PO HS #90 tabs 11/30/24 07/02/25 Rx tablet,extended release 24 hr clopidogrel 75 mg tablet (Plavix) 75 mg PO QPM 12/03/24 07/02/25 History lacosamide 150 mg tablet 150 mg PO BID #60 tabs 12/26/24 07/02/25 Rx Oxygen Home 01/30/25 07/01/25 History magnesium oxide 400 mg (241.3 mg 400 mg PO HS 03/01/25 07/02/25 History magnesium) tablet quetiapine 50 mg tablet,extended 50 mg PO QAM 03/19/25 07/02/25 History release 24 hr venlafaxine 150 mg 150 mg PO QAM 03/19/25 07/02/25 History capsule,extended release 24 hr acetylcysteine 200 mg/mL (20 %) 2 ml inhalation BID PRN Chest 03/26/25 07/02/25 Rx solution congestion #100 mL cholecalciferol (vitamin D3) 50 50 mcg PO QPM #90 caps 03/26/25 07/02/25 Rx mcg (2,000 unit) capsule propranolol 120 mg capsule,24 120 mg PO HS 03/26/25 07/02/25 History hr,extended release sodium chloride 7 % for 1 inh inhalation BID #240 mL 03/26/25 07/02/25 Rx nebulization prazosin 5 mg capsule 5 mg PO HS 04/05/25 07/02/25 History duloxetine 30 mg capsule,delayed 30 mg PO HS #30 caps 04/12/25 07/02/25 Rx release ondansetron 8 mg disintegrating 8 mg PO Q8H PRN nausea and 04/29/25 07/02/25 Rx tablet vomiting #30 tabs aspirin 81 mg capsule 81 mg PO QPM 05/03/25 07/02/25 History divalproex 500 mg tablet,delayed 1,000 mg PO QAM 05/03/25 07/02/25 History release duloxetine 60 mg capsule,delayed 60 mg PO QAM 05/03/25 07/02/25 History release FreeStyle Rosalie 2 Sensor (flash #6 ea 05/06/25 07/01/25 Rx glucose sensor) levothyroxine 150 mcg tablet 150 mcg PO DAILYBB #30 tabs 05/06/25 07/02/25 Rx (Synthroid) desmopressin 0.2 mg tablet 0.4 mg (2 x 0.2 mg) PO BID #120 05/16/25 07/02/25 Rx tabs naloxone 4 mg/actuation nasal 1 spray intranasal ONCE PRN opioid 05/18/25 07/02/25 Rx spray (Narcan) overdose #2 ea somatropin 5 mg/1.5 mL (3.3 mg/mL) 3 mg subcut QPM 05/29/25 07/02/25 History subcutaneous pen injector (Norditropin FlexPro) FreeStyle Rosalie 2 Plus Sensor #6 ea 06/04/25 07/01/25 Rx (blood-glucose sensor) tirzepatide 5 mg/0.5 mL 5 mg subcut WK 06/12/25 07/02/25 History subcutaneous pen injector (Mounjaro) ascorbic acid (vitamin C) 250 mg 250 mg PO BID #60 tabs 06/13/25 07/02/25 Rx tablet hydrocortisone 10 mg tablet 10 mg PO QPM 06/13/25 07/02/25 History dutasteride 0.5 mg capsule 0.5 mg PO QAM #90 caps 06/19/25 07/02/25 Rx sumatriptan succinate 50 mg tablet 0 mg PO .COMPLEX PRN Migraine 06/23/25 07/02/25 History Headache zinc sulfate 50 mg zinc (220 mg) 200 mg (4 x 50 mg zinc (220 mg)) 06/27/25 07/02/25 Rx capsule (Orazinc) PO QAM #0 caps albuterol sulfate 90 mcg/actuation 2 inh inhalation Q6H PRN shortness 07/01/25 07/02/25 Rx aerosol inhaler (Ventolin HFA) of breath or wheezing #6.7 grams arformoterol 15 mcg/2 mL solution 2 ml inhalation BID #120 mL 07/01/25 07/02/25 Rx for nebulization (Brovana) budesonide 0.5 mg/2 mL suspension 0.5 mg (2 mL) inhalation BID #60 mL 07/01/25 07/02/25 Rx for nebulization insulin glargine 100 unit/mL (3 4 unit (0.04 mL) subcut HS #15 mL 07/01/25 07/02/25 Rx mL) subcutaneous pen (Lantus Solostar U-100 Insulin) oxycodone 5 mg tablet 5 mg PO TID PRN pain #84 tabs 07/01/25 07/02/25 Rx tiotropium bromide 2.5 2 puff inhalation DAILY #4 grams 07/01/25 07/02/25 Rx mcg/actuation mist for inhalation (Spiriva Respimat) bumetanide 1 mg tablet 1 mg PO QAM 07/02/25 07/02/25 History famotidine 20 mg tablet 20 mg PO QAM 07/02/25 07/02/25 History ferrous sulfate 325 mg (65 mg 650 mg PO QPM 07/02/25 07/02/25 History iron) tablet hydrocortisone 10 mg tablet 20 mg PO QAM 07/02/25 07/02/25 History lisinopril 10 mg tablet 10 mg PO QAM 07/02/25 07/02/25 History metformin 1,000 mg tablet 1,000 mg PO BID 07/02/25 07/02/25 History mupirocin 2 % topical ointment 1 applic topical DAILY 07/02/25 07/02/25 History testosterone 2 pump topical QPM 07/02/25 07/02/25 History Past Med/Surg History Problem List (Updated 07/02/25 @ 15:03 by Mirta Brewer DO) Blood loss anemia Hematochezia (Acute) Muscular deconditioning Hyponatremia Lumbosacral radiculopathy Nausea & vomiting (Acute) Dizziness (Acute) Acute hyponatremia (Acute) QUENTIN (acute kidney injury) (Acute) Abrasion of knee (Acute) Chronic anemia (Acute) Hypomagnesemia (Acute) Hyperphosphatemia (Acute) Acidosis, lactic (Acute) Acute encephalopathy (Acute) Vision loss, left eye Hypopituitarism Counseling regarding advanced directives and goals of care Psychogenic nonepileptic seizure Asthma COPD (chronic obstructive pulmonary disease) Intractable back pain (Acute) Numbness of right foot Advanced care planning/counseling discussion Bilateral nephrolithiasis (Chronic) Elevated lactic acid level Compartment syndrome of lower extremity Ambulatory dysfunction (Acute) Arthralgia Venous stasis ulcers (Acute) Chronic venous insufficiency (Chronic) Presbyopia of both eyes Epiretinal membrane (ERM) of left eye Ocular hypertension Secondary cataract of left eye with vision obscured Combined form of senile cataract of right eye Abnormal chest CT Demyelinating disease Esophageal dysphagia 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 Current use of proton pump inhibitor Chronic migraine without aura or status migrainosus Anemia (Acute) Ulcerative colitis Mixed hyperlipidemia Lumbar stenosis with neurogenic claudication Arachnoid cyst of posterior cranial fossa Pseudoseizures Idiopathic polyneuropathy Essential tremor Mitral regurgitation Depression Anxiety (Chronic) Medical History Therapeutic opioid-induced constipation (OIC) Bipolar 1 disorder Diabetes Palliative care by specialist Back pain at L4-L5 level Staphylococcus aureus bacteremia with sepsis Sepsis due to cellulitis Hypokalemia Abrasion of knee Frequent falls Generalized weakness Hypomagnesemia Sepsis Fever of unknown origin Generalized pain Contusion of face Hypomagnesemia Opiate dependence Hypotension Toxic metabolic encephalopathy Hyperphosphatemia Hypomagnesemia Hypocalcemia Acute hyponatremia Dizziness QUENTIN (acute kidney injury) CHI (closed head injury) Acute flank pain Kidney stones History of pneumonia (03/2025) Ocular hypertension Ulcerative colitis Mixed hyperlipidemia Lumbar stenosis with neurogenic claudication Idiopathic polyneuropathy Essential tremor Demyelinating disease Compartment syndrome of lower extremity (02/2025) Chronic venous insufficiency Back pain at L4-L5 level Arthralgia Depression with anxiety Hx of fall (11/2024) History of dysphagia Hematuria On home O2 History of recent hospitalization Sepsis Pyelonephritis Urinary tract obstruction due to kidney stone Lactic acidosis LPRD (laryngopharyngeal reflux disease) Severe obesity (BMI 35.0-35.9 with comorbidity) Uncontrolled type 2 diabetes mellitus with hyperglycemia Hypothyroidism Hypertension Non-occlusive coronary artery disease Acute dehydration Witnessed seizure-like activity Nonepileptic episode Chronic narcotic dependence COPD with exacerbation (03/2025) Anti-cyclic citrullinated peptide antibody positive Restrictive lung disease Abnormal PFTs (pulmonary function tests) 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 Secondary adrenal insufficiency Transient alteration of awareness Chronic adrenal insufficiency Leukocytosis Acute asthma exacerbation Acute on chronic hypoxic respiratory failure Migraine Hematoma Growth hormone deficiency Diaphoresis Acute hypoxic respiratory failure Influenza A (12/2024) Status epilepticus (09/13/24) Knee hemarthrosis, right (09/13/24) Acute on chronic anemia (09/13/24) Acute metabolic encephalopathy (09/13/24) Laceration of toe of right foot Closed fracture of right fibula with malunion Right fibular fracture Acute on chronic respiratory failure with hypoxia and hypercapnia Shortness of breath Chronic respiratory failure with hypoxia Obesity CKD (chronic kidney disease), stage III Peripheral edema Atrial fibrillation (02/15/24) Chronic low back pain Panhypopituitarism Toxic encephalopathy Chest pain Acute dyspnea Acute CHF Hypoglycemia Syncope and collapse Internal hemorrhoids Recurrent seizures (05/01/25) Pituitary diabetes insipidus Spondylolysis, lumbar region Right lumbar radiculopathy HTN (hypertension) Adrenal insufficiency Pituitary adenoma Hyperactive gag reflex BRCA gene positive Family history of BRCA gene mutation PTSD (post-traumatic stress disorder) Epidural lipomatosis Chronic left sacroiliac pain Benzodiazepine overdose Presence of cardiac device Hx of fracture of foot Fracture of fibula, right, closed Cerebral concussion Orthostatic hypotension Sensorineural hearing loss of both ears Rectal bleeding History of COVID-19 Mitral valve regurgitation Vertigo Lower extremity edema Elevated LFTs Bilateral hand pain Pituitary neoplasm Prostate mass Bladder mass Surgical History Presence of Watchman left atrial appendage closure device (02/2024) History of arthroplasty of left knee (2014) S/P TURP (status post transurethral resection of prostate) History of lumbar fusion (07/2022) History of cardiac cath (07/2021) S/P epidural steroid injection History of lithotripsy Status post right foot surgery History of bladder surgery History of prostate surgery (2016) History of colonoscopy History of esophagogastroduodenoscopy (EGD) History of tooth extraction History of wisdom tooth extraction History of brain surgery Family History Grandmother (Paternal) Family history of diabetes mellitus Aunt Family history of diabetes mellitus Uncle Family history of diabetes mellitus Father Prostate cancer Heart disease Osteoarthritis Mother Cardiac disorder Grandmother (Maternal) Myocardial infarction Other Asthma Cancer Hypertension No family history of adverse response to anesthesia No family history of bleeding disorder Stroke Denies family history of Ovarian cancer Breast cancer Colorectal cancer Social History Smoking Status: Never smoker Tobacco Type: Smokeless Tobacco (Dip or Chew) Second Hand Exposure: No; Do You Dip or Chew Tobacco: No; Hx Alcohol Use: No Hx Substance Use: No Preferred Language: Citizen Of [place] Communication Ability: Effective Communication Ability Comment: Unable to obtain due to patient condition. Visual Impairment: Limited Hearing Ability: Normal Copy Writer Required: No Beliefs That Will Affect Care: None marital status: Single Current Living Situation: Family Current Living Situation Comment: and daughter in [place] current occupational status: disabled How many Children do You have: 3 How many Children do You have Comment: able to assist with care if needed Feels Safe at Home: Yes Childhood Exposure to Second-Hand Smoke: Yes (parents smoked) Diet: regular Diet Comment: going to be starting low carb/low calorie diet. caffeine: No (1/2 20 oz bottle of mountain dew. ) during the past year weight has: increased > 10 lbs Physical Activity Frequency: Daily Physical Activity Frequency Comment: walking, 1.5 miles daily. Seatbelt Use: always Do you think of yourself as: straight/heterosexual Gender Identity: Male Assistive Devices: Oxygen - at Night and Walker Review of Systems Review of Systems: Constitutional: No Weight Change, No Fever, No Chills, No Night Sweats, No Fatigue, No Malaise Cardiovascular: No Chest Pain, No SOB, No PND, No Dyspnea on Exertion, No Orthopnea, No Claudication, No Edema, No Palpitations + for strong Fhx of CAD Respiratory: No Cough, No Sputum, No Wheezing, No Smoke Exposure, No Dyspnea + for COPD (2 liter) Gastrointestinal: + for rectal bleeding; + for nausea and vomiting; no outside food; no abdominal pain Genitourinary: + for urinary hesistancy; + for strong Fhx of prostate cancer Musculoskeletal: No Arthralgias, No Myalgias, No Joint Swelling, No Joint Stiffness, No Back Pain, No Neck Pain, No Injury History Neuro: + for seizure; + for falling; + for dizziness; Psych:+ for depression; PTSD; nightmare; bipolar Heme/Lymph: No Bruising, No Bleeding, Endocrine: + for diabetes Physical Exam Physical Exam: VITALS: Reviewed. WEIGHT/BMI reviewed. GEN: Healthy appearing, well-developed, NAD. PSYCH: Good Judgment. AOx3. -Head: NC/AT; -Eyes: PERRL, EOMI. No discharge or redn ess; NECK: Supple, with no masses. CV: RRR, no m/r/g. LUNGS: CTAB, no w/r/c. ABD: Soft, NT/ND, NBS, no masses or organomegaly. no ascites. : N/A EXT: No clubbing, cyanosis, or edema. NEURO: AAOx3; no babiski sign; normal finger to nose; strength symmetric; normal sensation to soft touch Results & Data Results & Data Vital Signs (Past 12 Hours) Vital Signs Temp Pulse Pulse Resp BP BP Pulse Ox 07/02/25 14:31 91 H 07/02/25 13:36 36.6 C 91 H 15 111/72 97 07/02/25 13:02 92 H 14 104/57 L 96 07/02/25 12:38 36.9 C 90 16 106/64 96 07/02/25 12:19 115/67 07/02/25 12:19 115/67 07/02/25 12:18 91 H 20 07/02/25 12:15 90 15 94 07/02/25 12:10 108/62 07/02/25 12:10 108/62 07/02/25 12:09 90 16 98 07/02/25 12:08 36.8 C 89 15 108/62 99 07/02/25 12:06 115/29 L 07/02/25 11:59 92 H 15 97 07/02/25 11:56 105/57 L 07/02/25 11:56 105/57 L 07/02/25 11:53 36.8 C 91 H 16 105/57 L 97 07/02/25 11:51 36.7 C 91 H 16 111/70 97 07/02/25 11:45 111/70 07/02/25 11:45 111/70 07/02/25 11:45 111/70 07/02/25 11:41 89 22 96 07/02/25 11:37 36.8 C 90 18 106/68 97 07/02/25 11:30 106/68 07/02/25 11:30 106/68 07/02/25 11:26 89 20 96 07/02/25 11:15 110/68 07/02/25 11:15 110/68 07/02/25 11:15 110/68 07/02/25 11:14 89 23 95 07/02/25 11:14 17 07/02/25 11:13 36.8 C 07/02/25 11:11 88 95 07/02/25 11:01 96/69 L 07/02/25 10:55 90/52 L 07/02/25 10:53 89 97 07/02/25 10:33 91 H 16 94 07/02/25 10:30 99/68 L 07/02/25 10:21 92 H 07/02/25 10:17 92 H 20 107/71 95 07/02/25 10:15 107/71 O2 Del Method 07/02/25 14:31 07/02/25 13:36 07/02/25 13:02 07/02/25 12:38 07/02/25 12:19 07/02/25 12:19 07/02/25 12:18 07/02/25 12:15 07/02/25 12:10 07/02/25 12:10 07/02/25 12:09 07/02/25 12:08 07/02/25 12:06 07/02/25 11:59 07/02/25 11:56 07/02/25 11:56 07/02/25 11:53 07/02/25 11:51 07/02/25 11:45 07/02/25 11:45 07/02/25 11:45 07/02/25 11:41 07/02/25 11:37 07/02/25 11:30 07/02/25 11:30 07/02/25 11:26 07/02/25 11:15 07/02/25 11:15 07/02/25 11:15 07/02/25 11:14 07/02/25 11:14 07/02/25 11:13 07/02/25 11:11 07/02/25 11:01 07/02/25 10:55 07/02/25 10:53 Room Air 07/02/25 10:33 Room Air 07/02/25 10:30 07/02/25 10:21 07/02/25 10:17 Room Air 07/02/25 10:15 Laboratory Results Laboratory Results - last 72 hr 07/02/25 07/02/25 07/02/25 10:12 10:15 10:23 WBC 5.00 RBC 2.78 L Hgb 7.8 L POC Hgb 6.8 L* Hct 23.8 L POC Hct 20 L* MCV 85.6 MCH 28.1 MCHC 32.8 RDW Std Deviation 46.3 RDW Coeff of Yanira 14.7 H Plt Count 162 MPV 8.9 L PT 13.0 H INR 1.2 H APTT 33 H PTT Ratio 1.2 POC Sodium 136 Sodium 136 POC Potassium 4.4 Potassium 4.4 POC Chloride 101 Chloride 103 Carbon Dioxide 23 POC Total CO2 22 L Anion Gap 10 POC Anion Gap 19.0 POC BUN 6 L BUN 8 Creatinine 2.54 H POC Creatinine 2.7 H Est Cr Clr Drug Dosing 40.6 eGFR 28.68 BUN/Creatinine Ratio 3.1 L Glucose 90 POC Glucose 87 POC Glucose (other) 87 Calcium 8.2 L POC Ioniz Calcium Jeny 1.11 L Total Bilirubin 0.5 AST 46 H ALT 45 Alkaline Phosphatase 51 Troponin I High Sens 4.0 Total Protein 5.0 L Albumin 3.2 L Globulin 1.8 L Albumin/Globulin Ratio 1.8 Blood Type Antibody Screen Crossmatch 07/02/25 10:29 WBC RBC Hgb POC Hgb Hct POC Hct MCV MCH MCHC RDW Std Deviation RDW Coeff of Yanira Plt Count MPV PT INR APTT PTT Ratio POC Sodium Sodium POC Potassium Potassium POC Chloride Chloride Carbon Dioxide POC Total CO2 Anion Gap POC Anion Gap POC BUN BUN Creatinine POC Creatinine Est Cr Clr Drug Dosing eGFR BUN/Creatinine Ratio Glucose POC Glucose POC Glucose (other) Calcium POC Ioniz Calcium Jeny Total Bilirubin AST ALT Alkaline Phosphatase Troponin I High Sens Total Protein Albumin Globulin Albumin/Globulin Ratio Blood Type A Negative Antibody Screen NEGATIVE Crossmatch See Detail Diagnostic Findings Cervical Spine CT 07/02/25 10:32 CT cervical spine wo con CT DOSE: 1298.04 mGy.cm CLINICAL HISTORY: fall. COMPARISON: 06/26/2025 TECHNIQUE: Multiple axial CT images of the cervical spine were obtained without contrast. A dose lowering technique was utilized adhering to the principles of ALARA. FINDINGS: There are degenerative changes at C4-5. No fracture or subluxation seen. IMPRESSION: No cervical spine fracture seen. ACT 112: Negative or not required by law. The above report was generated using voice recognition software. It may contain grammatical, syntax or spelling errors. Electronically signed by: Keon Crump M.D. 07/02/2025 10:[address] 07/02/25 10:32 CT head/brain wo con CLINICAL HISTORY: 55 years-old Male with fall. Acute head injury status post fall TECHNIQUE: Multiple axial CT images of the head were obtained without contrast. A dose lowering technique was utilized adhering to the principles of ALARA. COMPARISON: 06/26/2025 FINDINGS: No acute intracranial hemorrhage, midline shift, intra-axial mass, hydrocephalus, territorial ischemia or abnormal extra-axial collection. Garrett cisterna magna versus arachnoid cyst on image 11 series 2 is unchanged measuring up to 5.9 cm. The calvarium is intact. Partially empty sella. Prior bilateral lens repair. The paranasal sinuses, mastoid air cells, and middle ear cavities are clear. IMPRESSION: No acute intracranial abnormality or calvarial fracture. ACT 112: Negative or not required by law. The above report was generated using voice recognition software. It may contain grammatical, syntax or spelling errors. Electronically signed by: Bean Tolentino M.D. 07/02/2025 11:16 AM Abdomen/Pelvis CT 07/02/25 10:[address] WITHOUT CONTRAST CT DOSE: 3245 HISTORY: Fall. GI bleed TECHNIQUE: Multiaxial CT images of the abdomen and pelvis were performed without contrast. A dose lowering technique was utilized adhering to the principles of ALARA. COMPARISON STUDY: 06/12/2025 FINDINGS: There is mild dependent scarring or atelectasis in the lung bases. ABDOMEN: Liver, gallbladder, spleen, pancreas, adrenal glands, and kidneys show no evidence of acute injury on this noncontrast exam. There is no hydronephrosis. There are scattered atherosclerotic calcifications. No abdominal aortic aneurysm. Pelvis: Prostate is mildly enlarged with multiple calcifications. Urinary bladder is decompressed. There are a few colonic diverticula without evidence of acute diverticulitis. Normal appendix. No bowel inflammation or obstruction seen. No free fluid, free air, or abscess. No enlarged adenopathy. No hematoma seen. Osseous structures: No acute fracture seen at the visualized osseous structures. IMPRESSION: No acute findings seen. Otherwise as described. ACT 112: Negative or not required by law. The above report was generated using voice recognition software. It may contain grammatical, syntax or spelling errors. Electronically signed by: Keon Crump M.D. 07/02/2025 11:[address] 07/02/25 10:42 CT lumbar spine wo con CLINICAL HISTORY: fall/ back pain COMPARISON STUDY: 06/12/2025 FINDINGS: Stable posterior metallic fusion at L5-S1. Stable grade 1 anter olisthesis of L5 on S1. Stable minimal retrolisthesis of L4 on 5. Otherwise normal alignment. No lumbar spine fracture seen. IMPRESSION: No lumbar spine fracture seen. ACT 112: Negative or not required by law. Electronically signed by: Keon Crump M.D. 07/02/2025 11:[address] 07/02/25 10:42 CT thoracic spine wo con HISTORY: 55 years-old Male fall/ back pain acute mid back pain status post fall COMPARISON: CT lumbar spine of same day, and also 06/12/2025, chest CT 05/29/2025 TECHNIQUE: Multiple axial CT images of the thoracic spine were obtained without IV contrast. A dose lowering technique was used consistent with the principals of ALARA. FINDINGS: Mild multilevel intervertebral disc space narrowing with mild to moderate spondylitic spurring and moderate facet arthrosis. No acute fracture or subluxation identified. No high-grade central canal or neural foraminal narrowing identified. A few tiny annular disc bulges are noted. Coronary artery calcifications. Left atrial occlusion device. Dependent bibasilar atelectasis. Hepatic steatosis. IMPRESSION: No acute fracture or subluxation identified. ACT 112: Negative or not required by law. The above report was generated using voice recognition software. It may contain grammatical, syntax or spelling errors. Electronically signed by: Bean Tolentino M.D. 07/02/2025 11:48 AM Code Status & VTE Plan VTE Prophylaxis Plan VTE Prophylaxis will be ordered: No Reason for no VTE drug order: Contraindicated PG Care Time/CCT Total # of Minutes Spent Total Time Spent with Patient: Total time spent is greater than 50% in coordination of care (as documented) at patient's floor/unit and/or counseling patient: Coding Level of Care Code 83239 INT INP/OBS CARE 2/55MIN Diagnoses Hematochezia K92.1 Blood loss anemia D50.0 Time Spent (min) 55
[2025-07-02 15:24] LABS: Hematocrit (blood only) 26.6 % (42.0-52.0); Hemoglobin 9.0 g/dl (14.0-18.0)
--- NOTE | 2025-07-02 15:34 | Gastrointestinal Consultation ---
Date of Consultation July 02, 2025 Assessment & Plan (1) Hematochezia: (2) Blood loss anemia: Plan 55yowm with h/o panhypopituitarism with diabetes insipidus, hypothyroidism, growth hormone deficiency, adrenal insufficiency, T2DM, psychogenic nonepileptic seizure, lumbar radiculopathy, COPD, Asthma, Venous stasis ulcer, Demyelinating disease, BRCA gene mutation positive. Migraine, Idiopathic polyneuropathy, Depression and anxiety is seen today in ER for blood loss anemia and reported hematochezia and questionable ulcerative colitis. (1) Blood loss anemia and hematochezia. - Continue to monitor for overt bleeding and CBC with transfusion to maintain Hgb > 7.0 per primary team. - Check CRP, Ferritin, Iron studies, Vitamin B12 and folate. - Clear liquids diet. - Plan for evaluation in the morning with consideration to add on for flexible sigmoidoscopy. - Further recommendations to come with Supervising GI provider on medical rounds. Please see co-signature comments. Supervising Physician Co-Signing Physician Notes History of possible ulcerative pancolitis. Last admission 2 to 3 years ago colonoscopy did not show inflammatory bowel disease. Awaiting iron studies in regards to anemia. Patient having 5-6 bowel movements per day with blood. Likely needs endoscopic procedure this may be a flexible sigmoidoscopy or colonoscopy. Reevaluate tomorrow. Patient has some tenderness in the left lower quadrant and fullness without guarding rebound or rigidity. Does appear somewhat pale. Bowel sounds were present. CT looks normal History of Present Illness Reason for Consultation: Rectal Bleeding, QUENTIN on ASA and plavix. Requesting Physician: Dr. Kirby Attending Physician: Dr. Kirby History of Present Illness 55yowm with h/o panhypopituitarism with diabetes insipidus, hypothyroidism, growth hormone deficiency, adrenal insufficiency, T2DM, psychogenic nonepileptic seizure, lumbar radiculopathy, COPD, Asthma, Venous stasis ulcer, Demyelinating disease, BRCA gene mutation positive. Migraine, Idiopathic polyneuropathy, Depression and anxiety is seen today in ER for blood loss anemia and reported hematochezia and questionable ulcerative colitis. Patient states he was diagnosed at age 20 [address] [facility]. He doesn't recall when the last time he was prescribed medications or what he took. He was last seen by our GI office 09/2022 for reported history of ulcerative colitis that was diagnosed at [facility] and a reported history of pancolitis on CT scan. Per those notes [facility] was contacted and they didn't have any records of colonoscopy. At that time patient was ordered stool studies to assess pancolitis for infection, stool calprotectin in addition to routine labs and f/u Colonoscopy. Patient hasn't been seen since then. Last colonoscopy 12/2021 was done for rectal bleeding which revealed only internal hemorrhoids. Recommended a 10 year follow up. He reports today that he typically has 5-6 loose BMs a day. About 1/3rd have bright red blood mixed in. Over the last couple days these have been 100% bloody with vomiting x 2 days. Associated with + Urgency, nocturna stools (rarely), + weight loss (270=> 231# over 4 months per patient). He reports cramping but denies any issues until reported vomiting over the last couple of days. Vomit is described as clear He denies any fevers, tenesmus, black tarry stools, dysphagia, SOB or CP. He denies coffee grounds or blood. Social History - Denies alcohol, drug or tobacco use. Surgical History - Denies any GI surgeries. Has gallbladder, appendix. No hx of resection. Family history - + Mother for IBS. No IBD or celiac disease. Pertinent History - POC Hgb 6.8 on arrival CBC 07/02/25 - 7.8g/dl Hct 23.8%, Plt 162k/ul, WBC 5.0 k/ul. POC Hgb 9.0/26.6% after 2UPRBCs. CMP 07/02/25 - Glucose 90, BUN 8 Cr 2.54, Cl 103, CO2 23, Na 136, K 4.4 Ionized Ca 1.11, T Bili 0.5, AST 46, ALT 45, Alk phos 51 CT abd/pelvis 07/02/25 ABDOMEN: Liver, gallbladder, spleen, pancreas, adrenal glands, and kidneys show no evidence of acute injury on this noncontrast exam. There is no hydronephrosis. There are scattered atherosclerotic calcifications. No abdominal aortic aneurysm. Pelvis: Prostate is mildly enlarged with multiple calcifications. Urinary bladder is decompressed. There are a few colonic diverticula without evidence of acute diverticulitis. Normal appendix. No bowel inflammation or obstruction seen. No free fluid, free air, or abscess. No enlarged adenopathy. No hematoma seen. Osseous structures: No acute fracture seen at the visualized osseous structures. IMPRESSION: No acute findings seen. Otherwise as described. CT head, Cervical spine, thoracic spine 07/02/25 - negative for fracture. CT scan abd/pelvis - on dates 09/2022, 05/2023, 11/2023, 03/2024, 06/2024, 08/31/24, 02/2025, 03/2025, 04/2025, 05/29/2025, 06/12/2025 and 07/02/25 reviewed - No bowel pathology or inflammation noted on these scans Colonoscopy completed in 01/26/11, 07/25/2019 and 12/31/21 reviewed. No documented history of colitis on these. Colonoscopy 12/31/21 Rectal bleeding. Findings: The perianal and digital rectal examinations were normal. Non-bleeding internal hemorrhoids were found during retroflexion. The hemorrhoids were small. The exam was otherwise without abnormality. Impression: - Non-bleeding internal hemorrhoids. - The examination was otherwise normal. - No specimens collected. Recommendation: - Resume previous diet. - Continue present medications. - Repeat colonoscopy in 10 years for surveillance. - Return to primary care physician as previously scheduled. Allergies Allergy/AdvReac Type Severity Reaction Status Date / Time clindamycin Allergy Intermediate SWELLING Verified 07/01/25 10:56 Iodinated Contrast Media Allergy Intermediate face/eye Verified 07/01/25 10:56 swelling Quinolones Allergy Intermediate HIVES Verified 07/01/25 10:56 tomato Allergy Intermediate swelling Verified 07/01/25 10:56 Home Medications Medication Instructions Recorded Confirmed Type mirtazapine 30 mg tablet (Remeron) 30 mg PO HS 06/23/22 07/02/25 History fluticasone propionate 50 1 spray intranasal HS PRN allergy 03/16/23 07/02/25 Rx mcg/actuation nasal symptoms #16 grams spray,suspension (Flonase Allergy Relief) FreeStyle Rosalie 2 [place] (flash #1 ea 05/13/23 07/01/25 Rx glucose scanning reader) blood sugar diagnostic (MVious XoticsTouch #150 ea 11/22/23 07/01/25 Rx Verio test strips) blood-glucose meter (OneTouch #1 ea 11/22/23 07/01/25 Rx Verio Reflect Meter) insulin syringe-needle U-100 1 mL #300 ea 11/22/23 07/01/25 Rx 30 gauge x 1/2" (BD Insulin Syringe Ultra-Fine) lancets 33 gauge (OneTouch Delica #150 ea 11/22/23 07/01/25 Rx Plus Lancet) glucagon 3 mg/actuation nasal 3 mg intranasal ONCE PRN Severe 04/06/24 07/02/25 History spray (Baqsimi) Hypoglycemia aripiprazole 5 mg tablet 5 mg PO QAM 05/29/24 07/02/25 History ipratropium 0.5 mg-albuterol 3 mg 3 ml inhalation QID PRN wheezing 07/31/24 07/02/25 Rx (2.5 mg base)/3 mL nebulization #90 mL soln nebulizers (Compact Compressor #1 ea 07/31/24 07/01/25 Rx Nebulizer) rosuvastatin 20 mg tablet 20 mg PO QAM #90 tabs 09/19/24 07/02/25 Rx pen needle, diabetic 32 gauge x #100 ea 10/23/24 07/01/25 Rx 5/32" (BD Vy 2nd Gen Pen Needle) vitamin B complex (Vitamins B 1 cap PO QAM #30 caps 10/26/24 07/02/25 Rx Complex capsule) lorazepam 0.5 mg tablet 0.5 mg PO DAILY PRN Seizure 11/23/24 07/02/25 History Activity levetiracetam 1,000 mg tablet 1,000 mg PO Q12H #60 tabs 11/26/24 07/02/25 Rx metoprolol succinate 25 mg 25 mg PO HS #90 tabs 11/30/24 07/02/25 Rx tablet,extended release 24 hr clopidogrel 75 mg tablet (Plavix) 75 mg PO QPM 12/03/24 07/02/25 History lacosamide 150 mg tablet 150 mg PO BID #60 tabs 12/26/24 07/02/25 Rx Oxygen Home 01/30/25 07/01/25 History magnesium oxide 400 mg (241.3 mg 400 mg PO HS 03/01/25 07/02/25 History magnesium) tablet quetiapine 50 mg tablet,extended 50 mg PO QAM 03/19/25 07/02/25 History release 24 hr venlafaxine 150 mg 150 mg PO QAM 03/19/25 07/02/25 History capsule,extended release 24 hr acetylcysteine 200 mg/mL (20 %) 2 ml inhalation BID PRN Chest 03/26/25 07/02/25 Rx solution congestion #100 mL cholecalciferol (vitamin D3) 50 50 mcg PO QPM #90 caps 03/26/25 07/02/25 Rx mcg (2,000 unit) capsule propranolol 120 mg capsule,24 120 mg PO HS 03/26/25 07/02/25 History hr,extended release sodium chloride 7 % for 1 inh inhalation BID #240 mL 03/26/25 07/02/25 Rx nebulization prazosin 5 mg capsule 5 mg PO HS 04/05/25 07/02/25 History duloxetine 30 mg capsule,delayed 30 mg PO HS #30 caps 04/12/25 07/02/25 Rx release ondansetron 8 mg disintegrating 8 mg PO Q8H PRN nausea and 04/29/25 07/02/25 Rx tablet vomiting #30 tabs aspirin 81 mg capsule 81 mg PO QPM 05/03/25 07/02/25 History divalproex 500 mg tablet,delayed 1,000 mg PO QAM 05/03/25 07/02/25 History release duloxetine 60 mg capsule,delayed 60 mg PO QAM 05/03/25 07/02/25 History release FreeStyle Rosalie 2 Sensor (flash #6 ea 05/06/25 07/01/25 Rx glucose sensor) levothyroxine 150 mcg tablet 150 mcg PO DAILYBB #30 tabs 05/06/25 07/02/25 Rx (Synthroid) desmopressin 0.2 mg tablet 0.4 mg (2 x 0.2 mg) PO BID #120 05/16/25 07/02/25 Rx tabs naloxone 4 mg/actuation nasal 1 spray intranasal ONCE PRN opioid 05/18/25 07/02/25 Rx spray (Narcan) overdose #2 ea somatropin 5 mg/1.5 mL (3.3 mg/mL) 3 mg subcut QPM 05/29/25 07/02/25 History subcutaneous pen injector (Norditropin FlexPro) FreeStyle Rosalie 2 Plus Sensor #6 ea 06/04/25 07/01/25 Rx (blood-glucose sensor) tirzepatide 5 mg/0.5 mL 5 mg subcut WK 06/12/25 07/02/25 History subcutaneous pen injector (Mounjaro) ascorbic acid (vitamin C) 250 mg 250 mg PO BID #60 tabs 06/13/25 07/02/25 Rx tablet hydrocortisone 10 mg tablet 10 mg PO QPM 06/13/25 07/02/25 History dutasteride 0.5 mg capsule 0.5 mg PO QAM #90 caps 06/19/25 07/02/25 Rx sumatriptan succinate 50 mg tablet 0 mg PO .COMPLEX PRN Migraine 06/23/25 07/02/25 History Headache zinc sulfate 50 mg zinc (220 mg) 200 mg (4 x 50 mg zinc (220 mg)) 06/27/25 07/02/25 Rx capsule (Orazinc) PO QAM #0 caps albuterol sulfate 90 mcg/actuation 2 inh inhalation Q6H PRN shortness 07/01/25 07/02/25 Rx aerosol inhaler (Ventolin HFA) of breath or wheezing #6.7 grams arformoterol 15 mcg/2 mL solution 2 ml inhalation BID #120 mL 07/01/25 07/02/25 Rx for nebulization (Brovana) budesonide 0.5 mg/2 mL suspension 0.5 mg (2 mL) inhalation BID #60 mL 07/01/25 07/02/25 Rx for nebulization insulin glargine 100 unit/mL (3 4 unit (0.04 mL) subcut HS #15 mL 07/01/25 07/02/25 Rx mL) subcutaneous pen (Lantus Solostar U-100 Insulin) oxycodone 5 mg tablet 5 mg PO TID PRN pain #84 tabs 07/01/25 07/02/25 Rx tiotropium bromide 2.5 2 puff inhalation DAILY #4 grams 07/01/25 07/02/25 Rx mcg/actuation mist for inhalation (Spiriva Respimat) bumetanide 1 mg tablet 1 mg PO QAM 07/02/25 07/02/25 History famotidine 20 mg tablet 20 mg PO QAM 07/02/25 07/02/25 History ferrous sulfate 325 mg (65 mg 650 mg PO QPM 07/02/25 07/02/25 History iron) tablet hydrocortisone 10 mg tablet 20 mg PO QAM 07/02/25 07/02/25 History lisinopril 10 mg tablet 10 mg PO QAM 07/02/25 07/02/25 History metformin 1,000 mg tablet 1,000 mg PO BID 07/02/25 07/02/25 History mupirocin 2 % topical ointment 1 applic topical DAILY 07/02/25 07/02/25 History testosterone 2 pump topical QPM 07/02/25 07/02/25 History Patient History Medical History Therapeutic opioid-induced constipation (OIC) Bipolar 1 disorder Diabetes Palliative care by specialist Back pain at L4-L5 level Staphylococcus aureus bacteremia with sepsis Sepsis due to cellulitis Hypokalemia Abrasion of knee Frequent falls Generalized weakness Hypomagnesemia Sepsis Fever of unknown origin Generalized pain Contusion of face Hypomagnesemia Opiate dependence Hypotension Toxic metabolic encephalopathy Hyperphosphatemia Hypomagnesemia Hypocalcemia Acute hyponatremia Dizziness QUENTIN (acute kidney injury) CHI (closed head injury) Acute flank pain Kidney stones History of pneumonia (03/2025) Ocular hypertension Ulcerative colitis Mixed hyperlipidemia Lumbar stenosis with neurogenic claudication Idiopathic polyneuropathy Essential tremor Demyelinating disease Compartment syndrome of lower extremity (02/2025) Chronic venous insufficiency Back pain at L4-L5 level Arthralgia Depression with anxiety Hx of fall (11/2024) History of dysphagia Hematuria On home O2 History of recent hospitalization Sepsis Pyelonephritis Urinary tract obstruction due to kidney stone Lactic acidosis LPRD (laryngopharyngeal reflux disease) Severe obesity (BMI 35.0-35.9 with comorbidity) Uncontrolled type 2 diabetes mellitus with hyperglycemia Hypothyroidism Hypertension Non-occlusive coronary artery disease Acute dehydration Witnessed seizure-like activity Nonepileptic episode Chronic narcotic dependence COPD with exacerbation (03/2025) Anti-cyclic citrullinated peptide antibody positive Restrictive lung disease Abnormal PFTs (pulmonary function tests) 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 Secondary adrenal insufficiency Transient alteration of awareness Chronic adrenal insufficiency Leukocytosis Acute asthma exacerbation Acute on chronic hypoxic respiratory failure Migraine Hematoma Growth hormone deficiency Diaphoresis Acute hypoxic respiratory failure Influenza A (12/2024) Status epilepticus (09/13/24) Knee hemarthrosis, right (09/13/24) Acute on chronic anemia (09/13/24) Acute metabolic encephalopathy (09/13/24) Laceration of toe of right foot Closed fracture of right fibula with malunion Right fibular fracture Acute on chronic respiratory failure with hypoxia and hypercapnia Shortness of breath Chronic respiratory failure with hypoxia Obesity CKD (chronic kidney disease), stage III Peripheral edema Atrial fibrillation (02/15/24) Chronic low back pain Panhypopituitarism Toxic encephalopathy Chest pain Acute dyspnea Acute CHF Hypoglycemia Syncope and collapse Internal hemorrhoids Recurrent seizures (05/01/25) Pituitary diabetes insipidus Spondylolysis, lumbar region Right lumbar radiculopathy HTN (hypertension) Adrenal insufficiency Pituitary adenoma Hyperactive gag reflex BRCA gene positive Family history of BRCA gene mutation PTSD (post-traumatic stress disorder) Epidural lipomatosis Chronic left sacroiliac pain Benzodiazepine overdose Presence of cardiac device Hx of fracture of foot Fracture of fibula, right, closed Cerebral concussion Orthostatic hypotension Sensorineural hearing loss of both ears Rectal bleeding History of COVID-19 Mitral valve regurgitation Vertigo Lower extremity edema Elevated LFTs Bilateral hand pain Pituitary neoplasm Prostate mass Bladder mass Surgical History Presence of Watchman left atrial appendage closure device (02/2024) History of arthroplasty of left knee (2014) S/P TURP (status post transurethral resection of prostate) History of lumbar fusion (07/2022) History of cardiac cath (07/2021) S/P epidural steroid injection History of lithotripsy Status post right foot surgery History of bladder surgery History of prostate surgery (2016) History of colonoscopy History of esophagogastroduodenoscopy (EGD) History of tooth extraction History of wisdom tooth extraction History of brain surgery Family History Grandmother (Paternal) Family history of diabetes mellitus Aunt Family history of diabetes mellitus Uncle Family history of diabetes mellitus Father Prostate cancer Heart disease Osteoarthritis Mother Cardiac disorder Grandmother (Maternal) Myocardial infarction Other Asthma Cancer Hypertension No family history of adverse response to anesthesia No family history of bleeding disorder Stroke Denies family history of Ovarian cancer Breast cancer Colorectal cancer Social History Smoking Status: Never smoker Tobacco Type: Smokeless Tobacco (Dip or Chew) Second Hand Exposure: No; Do You Dip or Chew Tobacco: No; Hx Alcohol Use: No Hx Substance Use: No Preferred Language: Hungarian Communication Ability: Effective Communication Ability Comment: Unable to obtain due to patient condition. Visual Impairment: Limited Hearing Ability: Normal Spinal Surgeon Required: No Beliefs That Will Affect Care: None marital status: Single Current Living Situation: Family Current Living Situation Comment: and daughter in [place] current occupational status: disabled How many Children do You have: 3 How many Children do You have Comment: able to assist with care if needed Feels Safe at Home: Yes Childhood Exposure to Second-Hand Smoke: Yes (parents smoked) Diet: regular Diet Comment: going to be starting low carb/low calorie diet. caffeine: No (1/2 20 oz bottle of mountain dew. ) during the past year weight has: increased > 10 lbs Physical Activity Frequency: Daily Physical Activity Frequency Comment: walking, 1.5 miles daily. Seatbelt Use: always Do you think of yourself as: straight/heterosexual Gender Identity: Male Assistive Devices: Walker Physical Exam Physical Exam: Constitutional: NAD. Alert. Answering questions appropriately. Respiratory: Breathing is even, non-labored. Lungs kong are clear to auscultation anteriorly. Cardiovascular: Regular Rate and Rhythm, no murmurs, rubs or gallops appreciated. Gastrointestinal (Abdomen): Normoactive bowel sounds x4, soft, non-distended, non-tender. Musculoskeletal: Lying in bed comfortably. No peripheral edema. Results & Data Vital Signs (Past 12 Hours) Vital Signs Temp Pulse Pulse Resp BP BP Pulse Ox 07/02/25 15:24 89 16 116/66 97 07/02/25 14:54 91 H 20 116/66 98 07/02/25 14:31 91 H 07/02/25 14:14 23 07/02/25 13:42 91 H 23 118/70 94 07/02/25 13:36 97.9 F 91 H 15 111/72 97 07/02/25 13:18 92 H 18 120/59 L 98 07/02/25 13:02 92 H 14 104/57 L 96 07/02/25 13:00 90 16 104/57 L 98 07/02/25 12:38 98.4 F 90 16 106/64 96 07/02/25 12:19 115/67 07/02/25 12:19 115/67 07/02/25 12:18 91 H 20 07/02/25 12:15 90 15 94 07/02/25 12:10 108/62 07/02/25 12:10 108/62 07/02/25 12:09 90 16 98 07/02/25 12:08 98.2 F 89 15 108/62 99 07/02/25 12:06 115/29 L 07/02/25 11:59 92 H 15 97 07/02/25 11:56 105/57 L 07/02/25 11:56 105/57 L 07/02/25 11:53 98.2 F 91 H 16 105/57 L 97 07/02/25 11:51 98.1 F 91 H 16 111/70 97 07/02/25 11:45 111/70 07/02/25 11:45 111/70 07/02/25 11:45 111/70 07/02/25 11:41 89 22 96 07/02/25 11:37 98.2 F 90 18 106/68 97 07/02/25 11:30 106/68 07/02/25 11:30 106/68 07/02/25 11:26 89 20 96 07/02/25 11:15 110/68 07/02/25 11:15 110/68 07/02/25 11:15 110/68 07/02/25 11:14 89 23 95 07/02/25 11:14 17 07/02/25 11:13 98.2 F 07/02/25 11:11 88 95 07/02/25 11:01 96/69 L 07/02/25 10:55 90/52 L 07/02/25 10:53 89 97 07/02/25 10:33 91 H 16 94 07/02/25 10:30 99/68 L 07/02/25 10:21 92 H 07/02/25 10:17 92 H 20 107/71 95 07/02/25 10:15 107/71 O2 Del Method 07/02/25 15:24 Room Air 07/02/25 14:54 Room Air 07/02/25 14:31 07/02/25 14:14 07/02/25 13:42 Room Air 07/02/25 13:36 07/02/25 13:18 Room Air 07/02/25 13:02 07/02/25 13:00 Room Air 07/02/25 12:38 07/02/25 12:19 07/02/25 12:19 07/02/25 12:18 07/02/25 12:15 07/02/25 12:10 07/02/25 12:10 07/02/25 12:09 07/02/25 12:08 07/02/25 12:06 07/02/25 11:59 07/02/25 11:56 07/02/25 11:56 07/02/25 11:53 07/02/25 11:51 07/02/25 11:45 07/02/25 11:45 07/02/25 11:45 07/02/25 11:41 07/02/25 11:37 07/02/25 11:30 07/02/25 11:30 07/02/25 11:26 07/02/25 11:15 07/02/25 11:15 07/02/25 11:15 07/02/25 11:14 07/02/25 11:14 07/02/25 11:13 07/02/25 11:11 07/02/25 11:01 07/02/25 10:55 07/02/25 10:53 Room Air 07/02/25 10:33 Room Air 07/02/25 10:30 07/02/25 10:21 07/02/25 10:17 Room Air 07/02/25 10:15 PG Care Time/CCT Total # of Minutes Spent Total Time Spent with Patient: Total time spent is greater than 50% in coordination of care (as documented) at patient's floor/unit and/or counseling patient: Coding Level of Care Code 38989 IN/OBS CONSULT LVL 3,45M Diagnoses Hematochezia K92.1 Blood loss anemia D50.0
[2025-07-02] MEDS ORDERED: LORazepam 0.5 MG TAB PO PRN (16:01)
[2025-07-02] MEDS ORDERED: FLUTICASONE PROPIONATE NA SPR 16 GM BTL PRN (16:01)
[2025-07-02] MEDS ORDERED: ALBUTEROL HFA 8 GM INHALER INH PRN (16:01)
[2025-07-02] MEDS ORDERED: ACETYLCYSTEINE 20% INHAL SOLN 4ML ***DISPENSED BY RESP. INH PRN (16:22)
[2025-07-02] MEDS ORDERED: GLUCAGON FOR INJ 1 MG VIAL SQ PRN (16:30)
[2025-07-02 17:39] LABS: Iron 36.0 mcg/dl (35-175); Total Iron Binding Cap Calc 314.0 mcg/dl (250-450); Transferrin 224.0 mg/dl (200-360); Transferrin (FE) Percent Satur 11.0 % (20-50)
[2025-07-02 18:16] LABS: Ferritin 54.8 ng/ml (8-388)
[2025-07-02 18:33] LABS: Folate (Folic Acid),Ser orPlas 15.0 ng/ml (>5.38)
[2025-07-02 18:34] LABS: Vitamin B12 579.0 pg/ml (180-914)
[2025-07-02] MEDS: SODIUM CHLORIDE 0.9% 1,000 ML IV SCH (18:39)
[2025-07-02] MEDS: BUDESONIDE 0.5 MG/2 ML VIAL (PULMICORT) INH SCH (19:32)
[2025-07-02] MEDS: FORMOTEROL 20 MCG/2 ML VIAL INH SCH (19:32)
[2025-07-02] MEDS: SODIUM CHLOR 7% 4 ML NEB INH SCH (19:32)
[2025-07-02] MEDS: LACOSAMIDE 50 MG TABLET PO SCH (21:33)
[2025-07-02] MEDS: ASCORBIC ACID 500 MG TAB PO SCH (21:34)
[2025-07-02] MEDS: HYDROCORTISONE 10 MG TAB PO SCH (21:36)
[2025-07-02] MEDS: CHOLECALCIFEROL 25 MCG (1000 UNITS) TAB PO SCH (21:36)
[2025-07-02] MEDS: METOPROLOL SUCC 25MG EXT REL TAB PO SCH (21:38)
[2025-07-02] MEDS: levETIRAcetam 500 MG TAB PO SCH (21:40)
[2025-07-02] MEDS: DESMOPRESSIN ACETATE 0.1 MG TAB PO SCH (21:40)
[2025-07-02] MEDS: MIRTAZAPINE TAB 15 MG TAB PO SCH (21:42)
[2025-07-02] MEDS: PRAZOSIN HCL 1 MG CAP PO SCH (21:42)
[2025-07-02] MEDS: MAGNESIUM OXIDE 400 MG TAB PO SCH (21:43)
[2025-07-03] MEDS: LEVOTHYROXINE SODIUM 150 MCG TABLET PO SCH (05:32)
[2025-07-03 05:58] LABS: Hematocrit (blood only) 25.4 % (42.0-52.0); Hemoglobin 8.5 g/dl (14.0-18.0); Mean Corpuscular Hemoglobin 28.1 pg (25.0-34.0); Mean Corpuscular Volume 83.8 fL (80.0-100.0); Platelet Count 140 K/uL (130-400); RDW Standard Deviation 42.7 fL (36.4-46.3); Red Blood Count 3.03 M/uL (4.70-6.10); White Blood Count 3.88 K/ul (4.8-10.8)
[2025-07-03 06:17] LABS: Alanine Aminotransferase 30.0 U/L (7-52); Albumin Globulin Ratio 2.2 (0.9-2); Alkaline Phosphatase 49.0 U/L (34-104); Anion Gap 6.0 (3-11); Bilirubin,Total 0.6 mg/dl (0.2-1.0); Blood Urea Nitrogen 12.0 mg/dl (6-23); Calcium 7.9 mg/dl (8.6-10.3); Carbon Dioxide 24.0 mmol/L (21-32); Chloride 106.0 mmol/L (98-107); Creatinine Clr Calc Pharmacy 60.5 ml/min; Globulin 1.5 gm/dl (2.5-4.0); Glucose 108.0 mg/dl (70-99(Fasting)); Potassium 4.6 mmol/L (3.5-5.1); Sodium 136.0 mmol/L (136-145); Total Protein 4.8 gm/dl (6.0-8.3)
[2025-07-03] MEDS: ROSUVASTATIN CALCIUM 20 MG TAB PO SCH (08:10)
[2025-07-03] MEDS: VENLAFAXINE HCL XR 150 MG CAPXR PO SCH (08:10)
[2025-07-03] MEDS: VITAMIN B COMPLEX TAB PO SCH (08:10)
[2025-07-03] MEDS: ZINC SULFATE 220 MG CAPSULE PO SCH (08:10)
[2025-07-03] MEDS: DIVALPROEX DELAY RELEASE 500 MG TAB PO SCH (08:11)
[2025-07-03] MEDS: HYDROCORTISONE 10 MG TAB PO SCH (08:11)
[2025-07-03] MEDS: ARIPiprazole 5 MG TAB PO SCH (08:12)
[2025-07-03] MEDS: FINASTERIDE 5 MG TAB PO SCH (08:12)
[2025-07-03] MEDS: MUPIROCIN 2% OINT 22 GM TUBE TOP SCH (08:13)
[2025-07-03] MEDS: UMECLIDINIUM BROMIDE 62.5MCG/BLISTER 7 PUFFS/INHALER INH SCH (08:14)
--- NOTE | 2025-07-03 08:15 | History & Physical Bridge Note ---
Date of Service July 03, 2025 History & Physical Bridge Note I have examined the patient, reviewed the History & Physical and in the interval since the performance of the History & Physical I have noted the following changes of clinical significance: no changes noted Saw patient this morning. No vomiting or hemotochezia since arrival. He has not had anything to eat. Continue NPO orders. Plan for add on Flexible Sigmoidoscopy for evaluation of hematochezia and possible ulcerative colitis. Supervising Physician Co-Signing Physician Notes For flexible sigmoidoscopy today. Notes decreased bleeding. Denies abdominal pain exam benign. Proceed with flexible sigmoidoscopy today for evaluation of history of ulcerative colitis bleeding and anemia.
[2025-07-03] MEDS ORDERED: SODIUM CHLORIDE 0.9% 100 ML IV PRN (08:17)
[2025-07-03] MEDS: FAMOTIDINE 20 MG TAB PO SCH (08:22)
[2025-07-03] MEDS ORDERED: PROPOFOL IV EMULSION 10 MG/ML 20 ML VIAL IV ONE (12:00)
[2025-07-03] MEDS ORDERED: LIDOCAINE 2% 2 ML VIAL/AMP(20MG/ML) INFIL ONE (12:00)
--- NOTE | 2025-07-03 12:00 | Anesthesiology Consultation ---
Date of Service July 03, 2025 Assessment & Plan Chart Review Chart Review: Acceptable Risk for Surgery Consults Requested none ASA ASA3 Proposed Anesthesia Anesthesia Type: General Risk / Benefits Reviewed With: PT / POA / Parent / Guardian, Accepts Plan and Informed Consent Obtained Additional Comments: Pt has morning anti-seizure and steroid/desmopressin doses. He is currently nauseated and feels like his stomach is full. Stress dose steroids warranted with GETA. History Surgery Operation Date: 07/03/25 08:20 Proposed Procedures p Flexible Sigmoidoscopy - Sean Patel MD Height/Weight Height: 5 ft 10 in Weight: 109.7 kg Allergies Allergy/AdvReac Type Severity Reaction Status Date / Time clindamycin Allergy Intermediate SWELLING Verified 07/01/25 10:56 Iodinated Contrast Media Allergy Intermediate face/eye Verified 07/01/25 10:56 swelling Quinolones Allergy Intermediate HIVES Verified 07/01/25 10:56 tomato Allergy Intermediate swelling Verified 07/01/25 10:56 Medications Home Medications Medication Instructions Recorded Confirmed Last Taken mirtazapine 30 mg tablet (Remeron) 30 mg PO HS 06/23/22 07/02/25 07/01/25 fluticasone propionate 50 1 spray intranasal HS PRN allergy 03/16/23 07/02/25 06/22/25 mcg/actuation nasal symptoms #16 grams spray,suspension (Flonase Allergy Relief) FreeStyle Rosalie 2 [place] (flash #1 ea 05/13/23 07/01/25 Unknown glucose scanning reader) blood sugar diagnostic (AmimonTouch #150 ea 11/22/23 07/01/25 Unknown Verio test strips) blood-glucose meter (OneTouch #1 ea 11/22/23 07/01/25 Unknown Verio Reflect Meter) insulin syringe-needle U-100 1 mL #300 ea 11/22/23 07/01/25 Unknown 30 gauge x 1/2" (BD Insulin Syringe Ultra-Fine) lancets 33 gauge (OneTouch Delica #150 ea 11/22/23 07/01/25 Unknown Plus Lancet) glucagon 3 mg/actuation nasal 3 mg intranasal ONCE PRN Severe 04/06/24 07/02/25 Unknown spray (Baqsimi) Hypoglycemia aripiprazole 5 mg tablet 5 mg PO QAM 05/29/24 07/02/25 07/02/25 ipratropium 0.5 mg-albuterol 3 mg 3 ml inhalation QID PRN wheezing 07/31/24 07/02/25 Unknown (2.5 mg base)/3 mL nebulization #90 mL soln nebulizers (Compact Compressor #1 ea 07/31/24 07/01/25 Unknown Nebulizer) rosuvastatin 20 mg tablet 20 mg PO QAM #90 tabs 09/19/24 07/02/25 07/02/25 pen needle, diabetic 32 gauge x #100 ea 10/23/24 07/01/25 Unknown 32" (BD Vy 2nd Gen Pen Needle) vitamin B complex (Vitamins B 1 cap PO QAM #30 caps 10/26/24 07/02/25 07/02/25 Complex capsule) lorazepam 0.5 mg tablet 0.5 mg PO DAILY PRN Seizure 11/23/24 07/02/25 06/08/25 Activity levetiracetam 1,000 mg tablet 1,000 mg PO Q12H #60 tabs 11/26/24 07/02/25 07/02/25 metoprolol succinate 25 mg 25 mg PO HS #90 tabs 11/30/24 07/02/25 07/01/25 tablet,extended release 24 hr clopidogrel 75 mg tablet (Plavix) 75 mg PO QPM 12/03/24 07/02/25 07/01/25 lacosamide 150 mg tablet 150 mg PO BID #60 tabs 12/26/24 07/02/25 07/02/25 Oxygen Home 01/30/25 07/01/25 Unknown magnesium oxide 400 mg (241.3 mg 400 mg PO HS 03/01/25 07/02/25 07/01/25 magnesium) tablet quetiapine 50 mg tablet,extended 50 mg PO QAM 03/19/25 07/02/25 07/02/25 release 24 hr venlafaxine 150 mg 150 mg PO QAM 03/19/25 07/02/25 07/02/25 capsule,extended release 24 hr acetylcysteine 200 mg/mL (20 %) 2 ml inhalation BID PRN Chest 03/26/25 07/02/25 Unknown solution congestion #100 mL cholecalciferol (vitamin D3) 50 50 mcg PO QPM #90 caps 03/26/25 07/02/25 07/01/25 mcg (2,000 unit) capsule propranolol 120 mg capsule,24 120 mg PO HS 03/26/25 07/02/25 07/01/25 hr,extended release sodium chloride 7 % for 1 inh inhalation BID #240 mL 03/26/25 07/02/25 07/02/25 nebulization prazosin 5 mg capsule 5 mg PO HS 04/05/25 07/02/25 07/01/25 duloxetine 30 mg capsule,delayed 30 mg PO HS #30 caps 04/12/25 07/02/25 07/01/25 release ondansetron 8 mg disintegrating 8 mg PO Q8H PRN nausea and 04/29/25 07/02/25 Unknown tablet vomiting #30 tabs aspirin 81 mg capsule 81 mg PO QPM 05/03/25 07/02/25 07/01/25 divalproex 500 mg tablet,delayed 1,000 mg PO QAM 05/03/25 07/02/25 07/02/25 release duloxetine 60 mg capsule,delayed 60 mg PO QAM 05/03/25 07/02/25 07/02/25 release FreeStyle Rosalie 2 Sensor (flash #6 ea 05/06/25 07/01/25 Unknown glucose sensor) levothyroxine 150 mcg tablet 150 mcg PO DAILYBB #30 tabs 05/06/25 07/02/25 07/02/25 (Synthroid) desmopressin 0.2 mg tablet 0.4 mg (2 x 0.2 mg) PO BID #120 05/16/25 07/02/25 07/02/25 tabs naloxone 4 mg/actuation nasal 1 spray intranasal ONCE PRN opioid 05/18/25 07/02/25 Unknown spray (Narcan) overdose #2 ea somatropin 5 mg/1.5 mL (3.3 mg/mL) 3 mg subcut QPM 05/29/25 07/02/25 07/01/25 subcutaneous pen injector (Norditropin FlexPro) FreeStyle Rosalie 2 Plus Sensor #6 ea 06/04/25 07/01/25 Unknown (blood-glucose sensor) tirzepatide 5 mg/0.5 mL 5 mg subcut WK 06/12/25 07/02/25 06/30/25 subcutaneous pen injector (Mounjaro) ascorbic acid (vitamin C) 250 mg 250 mg PO BID #60 tabs 06/13/25 07/02/25 07/02/25 tablet hydrocortisone 10 mg tablet 10 mg PO QPM 06/13/25 07/02/25 07/01/25 dutasteride 0.5 mg capsule 0.5 mg PO QAM #90 caps 06/19/25 07/02/25 07/02/25 sumatriptan succinate 50 mg tablet 0 mg PO .COMPLEX PRN Migraine 06/23/25 07/02/25 Unknown Headache zinc sulfate 50 mg zinc (220 mg) 200 mg (4 x 50 mg zinc (220 mg)) 06/27/25 07/02/25 07/02/25 capsule (Orazinc) PO QAM #0 caps albuterol sulfate 90 mcg/actuation 2 inh inhalation Q6H PRN shortness 07/01/25 07/02/25 Unknown aerosol inhaler (Ventolin HFA) of breath or wheezing #6.7 grams arformoterol 15 mcg/2 mL solution 2 ml inhalation BID #120 mL 07/01/25 07/02/25 07/02/25 for nebulization (Brovana) budesonide 0.5 mg/2 mL suspension 0.5 mg (2 mL) inhalation BID #60 mL 07/01/25 07/02/25 07/02/25 for nebulization insulin glargine 100 unit/mL (3 4 unit (0.04 mL) subcut HS #15 mL 07/01/25 07/02/25 07/01/25 mL) subcutaneous pen (Lantus Solostar U-100 Insulin) oxycodone 5 mg tablet 5 mg PO TID PRN pain #84 tabs 07/01/25 07/02/25 Unknown tiotropium bromide 2.5 2 puff inhalation DAILY #4 grams 07/01/25 07/02/25 Unknown mcg/actuation mist for inhalation (Spiriva Respimat) bumetanide 1 mg tablet 1 mg PO QAM 07/02/25 07/02/25 07/02/25 famotidine 20 mg tablet 20 mg PO QAM 07/02/25 07/02/25 07/02/25 ferrous sulfate 325 mg (65 mg 650 mg PO QPM 07/02/25 07/02/25 07/01/25 iron) tablet hydrocortisone 10 mg tablet 20 mg PO QAM 07/02/25 07/02/25 07/02/25 lisinopril 10 mg tablet 10 mg PO QAM 07/02/25 07/02/25 07/02/25 metformin 1,000 mg tablet 1,000 mg PO BID 07/02/25 07/02/25 07/02/25 mupirocin 2 % topical ointment 1 applic topical DAILY 07/02/25 07/02/25 07/01/25 testosterone 2 pump topical QPM 07/02/25 07/02/25 07/01/25 Active Medications Generic Name Dose Route Start Last Admin Trade Name Anton PRN Reason Stop Dose Admin Aripiprazole 5 mg 07/03/25 09:00 07/03/25 08:12 Aripiprazole 5 Mg Tab PO 08/02/25 08:59 5 mg QAM OBDULIO Administration Ascorbic Acid 250 mg 07/02/25 21:00 07/03/25 08:11 Ascorbic Acid 500 Mg Tab PO 08/01/25 20:59 250 mg BID OBDULIO Administration Budesonide 0.5 mg 07/02/25 19:00 07/03/25 07:25 Budesonide 0.5 Mg/2 Ml Vial (Pulmicort) INH 08/01/25 18:59 0.5 mg BIDR OBDULIO Administration Desmopressin Acetate 0.4 mg 07/02/25 21:00 07/03/25 08:12 Desmopressin Acetate 0.1 Mg Tab PO 08/01/25 20:59 0.4 mg BID OBDULIO Administration Divalproex Sodium 1,000 mg 07/03/25 09:00 07/03/25 08:11 Divalproex Delay Release 500 Mg Tab PO 08/02/25 08:59 1,000 mg QAM OBDULIO Administration Duloxetine HCl 30 mg 07/02/25 21:00 07/02/25 21:37 Duloxetine Hcl 30 Mg Cap PO 08/01/25 20:59 30 mg HS OBDULIO Administration Duloxetine HCl 60 mg 07/03/25 09:00 07/03/25 08:12 Duloxetine Hcl 60 Mg Cap PO 08/02/25 08:59 60 mg QAM OBDULIO Administration Famotidine 20 mg 07/03/25 09:00 07/03/25 08:22 Famotidine 20 Mg Tab PO 08/02/25 08:59 20 mg QAM OBDULIO Administration Finasteride 5 mg 07/03/25 09:00 07/03/25 08:12 Finasteride 5 Mg Tab PO 08/02/25 08:59 5 mg QAM OBDULIO Administration Formoterol Fumarate 20 mcg 07/02/25 19:00 07/03/25 07:25 Formoterol 20 Mcg/2 Ml Vial INH 08/01/25 18:59 20 mcg BIDR OBDULIO Administration Hydrocortisone 10 mg 07/02/25 21:00 07/02/25 21:36 Hydrocortisone 10 Mg Tab PO 08/01/25 20:59 10 mg QPM OBDULIO Administration Hydrocortisone 20 mg 07/03/25 09:00 07/03/25 08:11 Hydrocortisone 10 Mg Tab PO 08/02/25 08:59 20 mg QAM OBDULIO Administration Lacosamide 150 mg 07/02/25 21:00 07/03/25 08:21 Lacosamide 50 Mg Tablet PO 08/01/25 20:59 150 mg BID OBDULIO Administration Levetiracetam 1,000 mg 07/02/25 21:00 07/03/25 08:15 Levetiracetam 500 Mg Tab PO 08/01/25 20:59 1,000 mg Q12H OBDULIO Administration Levothyroxine Sodium 150 mcg 07/03/25 06:30 07/03/25 05:32 Levothyroxine Sodium 150 Mcg Tablet PO 08/02/25 06:29 150 mcg DAILYBB OBDULIO Administration Magnesium Oxide 400 mg 07/02/25 21:00 07/02/25 21:43 Magnesium Oxide 400 Mg Tab PO 08/01/25 20:59 400 mg HS OBDULIO Administration Metoprolol Succinate 25 mg 07/02/25 21:00 07/02/25 21:38 Metoprolol Succ 25mg Ext Rel Tab PO 08/01/25 20:59 25 mg HS OBDULIO Administration Mirtazapine 30 mg 07/02/25 21:00 07/02/25 21:42 Mirtazapine Tab 15 Mg Tab PO 08/01/25 20:59 30 mg HS OBDULIO Administration Miscellaneous 1 each 07/03/25 00:00 07/03/25 08:09 Somatropin Flexpro: Order Awaiting Action N/A 08/02/25 00:00 Not Given QS OBDULIO Mupirocin 1 appln 07/03/25 09:00 08/13/25 08:13 Mupirocin 2% Oint 22 Gm Tube TOP 08/02/25 08:59 Not Given DAILY OBDULIO Oxycodone HCl 5 mg 07/02/25 16:01 07/03/25 08:22 Oxycodone Hcl Ir 5 Mg Tab (Immediate Release) PO 07/16/25 16:00 5 mg TID PRN Administration pain Prazosin HCl 5 mg 07/02/25 21:00 07/02/25 21:42 Prazosin Hcl 1 Mg Cap PO 08/01/25 20:59 5 mg HS OBDULIO Administration Rosuvastatin Calcium 20 mg 07/03/25 09:00 07/03/25 08:10 Rosuvastatin Calcium 20 Mg Tab PO 08/02/25 08:59 20 mg QAM OBDULIO Administration Sodium Chloride 4 ml 07/02/25 19:00 07/03/25 07:25 Sodium Chlor 7% 4 Ml Neb INH 08/01/25 18:59 4 ml BIDR OBDULIO Administration Umeclidinium [place] 1 puffs 07/03/25 09:00 07/03/25 08:14 Umeclidinium [place] 62.5mcg/Blister 7 Puffs/Inhaler INH 08/02/25 08:59 1 puffs DAILY OBDULIO Administration Venlafaxine HCl 150 mg 07/03/25 09:00 07/03/25 08:10 Venlafaxine Hcl Xr 150 Mg Capxr PO 08/02/25 08:59 150 mg QAM OBDULIO Administration Vitamin B Complex 1 tab 07/03/25 09:00 07/03/25 08:10 Vitamin B Complex Tab PO 08/02/25 08:59 1 tab QAM OBDULIO Administration Vitamin D 50 mcg 07/02/25 21:00 07/02/25 21:36 Cholecalciferol 25 Mcg (1000 Units) Tab PO 08/01/25 20:59 50 mcg QPM OBDULIO Administration Zinc Sulfate 220 mg 07/03/25 09:00 07/03/25 08:10 Zinc Sulfate 220 Mg Capsule PO 08/02/25 08:59 220 mg QAM OBDULIO Administration NPO Date Last Intake of Fluids: 07/02/25 Time Last Intake of Fluids: 18:00 Date Last Intake of Solids: 06/30/25 Time Last Intake of Solids: 14:00 Past Medical History Medical History Therapeutic opioid-induced constipation (OIC) Bipolar 1 disorder Diabetes Palliative care by specialist Back pain at L4-L5 level Staphylococcus aureus bacteremia with sepsis Sepsis due to cellulitis Hypokalemia Abrasion of knee Frequent falls Generalized weakness Hypomagnesemia Sepsis Fever of unknown origin Generalized pain Contusion of face Hypomagnesemia Opiate dependence Hypotension Toxic metabolic encephalopathy Hyperphosphatemia Hypomagnesemia Hypocalcemia Acute hyponatremia Dizziness QUENTIN (acute kidney injury) CHI (closed head injury) Acute flank pain Kidney stones History of pneumonia (03/2025) Ocular hypertension Ulcerative colitis Mixed hyperlipidemia Lumbar stenosis with neurogenic claudication Idiopathic polyneuropathy Essential tremor Demyelinating disease Compartment syndrome of lower extremity (02/2025) Chronic venous insufficiency Back pain at L4-L5 level Arthralgia Depression with anxiety Hx of fall (11/2024) History of dysphagia Hematuria On home O2 History of recent hospitalization Sepsis Pyelonephritis Urinary tract obstruction due to kidney stone Lactic acidosis LPRD (laryngopharyngeal reflux disease) Severe obesity (BMI 35.0-35.9 with comorbidity) Uncontrolled type 2 diabetes mellitus with hyperglycemia Hypothyroidism Hypertension Non-occlusive coronary artery disease Acute dehydration Witnessed seizure-like activity Nonepileptic episode Chronic narcotic dependence COPD with exacerbation (03/2025) Anti-cyclic citrullinated peptide antibody positive Restrictive lung disease Abnormal PFTs (pulmonary function tests) 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 Secondary adrenal insufficiency Transient alteration of awareness Chronic adrenal insufficiency Leukocytosis Acute asthma exacerbation Acute on chronic hypoxic respiratory failure Migraine Hematoma Growth hormone deficiency Diaphoresis Acute hypoxic respiratory failure Influenza A (12/2024) Status epilepticus (09/13/24) Knee hemarthrosis, right (09/13/24) Acute on chronic anemia (09/13/24) Acute metabolic encephalopathy (09/13/24) Laceration of toe of right foot Closed fracture of right fibula with malunion Right fibular fracture Acute on chronic respiratory failure with hypoxia and hypercapnia Shortness of breath Chronic respiratory failure with hypoxia Obesity CKD (chronic kidney disease), stage III Peripheral edema Atrial fibrillation (02/15/24) Chronic low back pain Panhypopituitarism Toxic encephalopathy Chest pain Acute dyspnea Acute CHF Hypoglycemia Syncope and collapse Internal hemorrhoids Recurrent seizures (05/01/25) Pituitary diabetes insipidus Spondylolysis, lumbar region Right lumbar radiculopathy HTN (hypertension) Adrenal insufficiency Pituitary adenoma Hyperactive gag reflex BRCA gene positive Family history of BRCA gene mutation PTSD (post-traumatic stress disorder) Epidural lipomatosis Chronic left sacroiliac pain Benzodiazepine overdose Presence of cardiac device Hx of fracture of foot Fracture of fibula, right, closed Cerebral concussion Orthostatic hypotension Sensorineural hearing loss of both ears Rectal bleeding History of COVID-19 Mitral valve regurgitation Vertigo Lower extremity edema Elevated LFTs Bilateral hand pain Pituitary neoplasm Prostate mass Bladder mass Exercise / Class Metabolic Activity III < 4 Walking/Shop/Light housework Past Family History Family History Grandmother (Paternal) Family history of diabetes mellitus Aunt Family history of diabetes mellitus Uncle Family history of diabetes mellitus Father Prostate cancer Heart disease Osteoarthritis Mother Cardiac disorder Grandmother (Maternal) Myocardial infarction Other Asthma Cancer Hypertension No family history of adverse response to anesthesia No family history of bleeding disorder Stroke Denies family history of Ovarian cancer Breast cancer Colorectal cancer Past Surgical History Surgical History Presence of Watchman left atrial appendage closure device (02/2024) eric History of arthroplasty of left knee (2014) S/P TURP (status post transurethral resection of prostate) [place] of [place]22[place] [facility] [place] [facility] [place] of cardiac cath (07/2021) 07/2021 - no stents- no [facility]- follows with dr. kilgore S/P epidural steroid injection History of lithotripsy Status post right foot surgery replaced 5th metatarsal--hardware in place History of bladder surgery remove mass History of prostate surgery (2016) remove mass- not malignant History of colonoscopy History of esophagogastroduodenoscopy (EGD) History of tooth extraction History of wisdom tooth extraction History of brain surgery x2---2004 @ [facility] [place], [place] @ [facility]--for brain tumors > caused epilepsy Past Anesthesia History No Hx of Anesthesia Complications and No Family Hx of Anesthesia Complications History of PONV No Hx of PONV and No Hx of Motion Sickness Social History Smoking Status: Never smoker tobacco type: smokeless tobacco Do You Dip or Chew Tobacco: No Hx Alcohol Use: No alcohol intake frequency: holidays/special occasions only Hx Substance Use: No substance use type: does not use Last Used Substance: Just Prior to Arrival Last Used Substance Other:: Unable to obtain due to patient condition. Physical Exam Vital Signs Last Vital Signs Temp 36.9 C 07/03/25 11:15 Pulse 90 07/03/25 11:15 Resp 20 07/03/25 11:15 BP 144/87 H 07/03/25 11:15 Pulse Ox 93 07/03/25 11:15 O2 Del Method Room Air 07/03/25 11:15 Constitutional + obese; no acute distress ENMT Mouth: + TMJ abnormality, + dentition abnormality, + dental caries, + poor dentition and + chipped teeth Thyromental Distance: > or= 3.5 Finger Breadths Mallampati Class: III Neck normal visual inspection Respiratory normal respiratory effort; no respiratory distress Auscultation: lungs clear to auscultation bilaterally Cardiovascular Rate/Rhythm: regular rate and regular rhythm Musculoskeletal Spine: + limited cervical ROM Neurologic moves all extremities Psychiatric Orientation: alert and oriented x 3 Testing Laboratory Results 07/03/25 05:23 07/03/25 05:23 PT 13.0 Seconds (9.0-12.0) H 07/02/25 10:15 INR 1.2 (0.9-1.1) H 07/02/25 10:15 APTT 33 Seconds (21-31) H 07/02/25 10:15 Blood Type A Negative 07/02/25 10:29 Antibody Screen NEGATIVE 07/02/25 10:29 Electrocardiogram Date: 07/02/25 Findings: + NSR @ and + T wave inversion Chest X-Ray Date: 06/26/25 Findings: + NAD Echocardiogram Date: 10/24/24 EF: 60% LV Function: normal RWMA: + none Valvular Disease: + no significant valvular disease Day of Procedure Evaluation. Date of Surgery July 03, 2025 Height/Weight Height: 5 ft 10 in Weight: 109.7 kg Vital Signs Last Vital Signs Temp 36.9 C 07/03/25 11:15 Pulse 90 07/03/25 11:15 Resp 20 07/03/25 11:15 BP 144/87 H 07/03/25 11:15 Pulse Ox 93 07/03/25 11:15 O2 Del Method Room Air 07/03/25 11:15 Allergies Allergy/AdvReac Type Severity Reaction Status Date / Time clindamycin Allergy Intermediate SWELLING Verified 07/01/25 10:56 Iodinated Contrast Media Allergy Intermediate face/eye Verified 07/01/25 10:56 swelling Quinolones Allergy Intermediate HIVES Verified 07/01/25 10:56 tomato Allergy Intermediate swelling Verified 07/01/25 10:56 Medications Home Medications Medication Instructions Recorded Confirmed Last Taken mirtazapine 30 mg tablet (Remeron) 30 mg PO HS 06/23/22 07/02/25 07/01/25 fluticasone propionate 50 1 spray intranasal HS PRN allergy 03/16/23 07/02/25 06/22/25 mcg/actuation nasal symptoms #16 grams spray,suspension (Flonase Allergy Relief) FreeStyle Rosalie 2 [place] (flash #1 ea 05/13/23 07/01/25 Unknown glucose scanning reader) blood sugar diagnostic (OneTouch #150 ea 11/22/23 07/01/25 Unknown Verio test strips) blood-glucose meter (AmimonTouch #1 ea 11/22/23 07/01/25 Unknown Verio Reflect Meter) insulin syringe-needle U-100 1 mL #300 ea 11/22/23 07/01/25 Unknown 30 gauge x 1/2" (BD Insulin Syringe Ultra-Fine) lancets 33 gauge (OneTouch Delica #150 ea 11/22/23 07/01/25 Unknown Plus Lancet) glucagon 3 mg/actuation nasal 3 mg intranasal ONCE PRN Severe 04/06/24 07/02/25 Unknown spray (Baqsimi) Hypoglycemia aripiprazole 5 mg tablet 5 mg PO QAM 05/29/24 07/02/25 07/02/25 ipratropium 0.5 mg-albuterol 3 mg 3 ml inhalation QID PRN wheezing 07/31/24 07/02/25 Unknown (2.5 mg base)/3 mL nebulization #90 mL soln nebulizers (Compact Compressor #1 ea 07/31/24 07/01/25 Unknown Nebulizer) rosuvastatin 20 mg tablet 20 mg PO QAM #90 tabs 09/19/24 07/02/25 07/02/25 pen needle, diabetic 32 gauge x #100 ea 10/23/24 07/01/25 Unknown 5/32" (BD Vy 2nd Gen Pen Needle) vitamin B complex (Vitamins B 1 cap PO QAM #30 caps 10/26/24 07/02/25 07/02/25 Complex capsule) lorazepam 0.5 mg tablet 0.5 mg PO DAILY PRN Seizure 11/23/24 07/02/25 06/08/25 Activity levetiracetam 1,000 mg tablet 1,000 mg PO Q12H #60 tabs 11/26/24 07/02/25 07/02/25 metoprolol succinate 25 mg 25 mg PO HS #90 tabs 11/30/24 07/02/25 07/01/25 tablet,extended release 24 hr clopidogrel 75 mg tablet (Plavix) 75 mg PO QPM 12/03/24 07/02/25 07/01/25 lacosamide 150 mg tablet 150 mg PO BID #60 tabs 12/26/24 07/02/25 07/02/25 Oxygen Home 01/30/25 07/01/25 Unknown magnesium oxide 400 mg (241.3 mg 400 mg PO HS 03/01/25 07/02/25 07/01/25 magnesium) tablet quetiapine 50 mg tablet,extended 50 mg PO QAM 03/19/25 07/02/25 07/02/25 release 24 hr venlafaxine 150 mg 150 mg PO QAM 03/19/25 07/02/25 07/02/25 capsule,extended release 24 hr acetylcysteine 200 mg/mL (20 %) 2 ml inhalation BID PRN Chest 03/26/25 07/02/25 Unknown solution congestion #100 mL cholecalciferol (vitamin D3) 50 50 mcg PO QPM #90 caps 03/26/25 07/02/25 07/01/25 mcg (2,000 unit) capsule propranolol 120 mg capsule,24 120 mg PO HS 03/26/25 07/02/25 07/01/25 hr,extended release sodium chloride 7 % for 1 inh inhalation BID #240 mL 03/26/25 07/02/25 07/02/25 nebulization prazosin 5 mg capsule 5 mg PO HS 04/05/25 07/02/25 07/01/25 duloxetine 30 mg capsule,delayed 30 mg PO HS #30 caps 04/12/25 07/02/25 07/01/25 release ondansetron 8 mg disintegrating 8 mg PO Q8H PRN nausea and 04/29/25 07/02/25 Unknown tablet vomiting #30 tabs aspirin 81 mg capsule 81 mg PO QPM 05/03/25 07/02/25 07/01/25 divalproex 500 mg tablet,delayed 1,000 mg PO QAM 05/03/25 07/02/25 07/02/25 release duloxetine 60 mg capsule,delayed 60 mg PO QAM 05/03/25 07/02/25 07/02/25 release FreeStyle Rosalie 2 Sensor (flash #6 ea 05/06/25 07/01/25 Unknown glucose sensor) levothyroxine 150 mcg tablet 150 mcg PO DAILYBB #30 tabs 05/06/25 07/02/25 07/02/25 (Synthroid) desmopressin 0.2 mg tablet 0.4 mg (2 x 0.2 mg) PO BID #120 05/16/25 07/02/25 07/02/25 tabs naloxone 4 mg/actuation nasal 1 spray intranasal ONCE PRN opioid 05/18/25 07/02/25 Unknown spray (Narcan) overdose #2 ea somatropin 5 mg/1.5 mL (3.3 mg/mL) 3 mg subcut QPM 05/29/25 07/02/25 07/01/25 subcutaneous pen injector (Norditropin FlexPro) FreeStyle Rosalie 2 Plus Sensor #6 ea 06/04/25 07/01/25 Unknown (blood-glucose sensor) tirzepatide 5 mg/0.5 mL 5 mg subcut WK 06/12/25 07/02/25 06/30/25 subcutaneous pen injector (Mounjaro) ascorbic acid (vitamin C) 250 mg 250 mg PO BID #60 tabs 06/13/25 07/02/25 07/02/25 tablet hydrocortisone 10 mg tablet 10 mg PO QPM 06/13/25 07/02/25 07/01/25 dutasteride 0.5 mg capsule 0.5 mg PO QAM #90 caps 06/19/25 07/02/25 07/02/25 sumatriptan succinate 50 mg tablet 0 mg PO .COMPLEX PRN Migraine 06/23/25 07/02/25 Unknown Headache zinc sulfate 50 mg zinc (220 mg) 200 mg (4 x 50 mg zinc (220 mg)) 06/27/25 07/02/25 07/02/25 capsule (Orazinc) PO QAM #0 caps albuterol sulfate 90 mcg/actuation 2 inh inhalation Q6H PRN shortness 07/01/25 07/02/25 Unknown aerosol inhaler (Ventolin HFA) of breath or wheezing #6.7 grams arformoterol 15 mcg/2 mL solution 2 ml inhalation BID #120 mL 07/01/25 07/02/25 07/02/25 for nebulization (Brovana) budesonide 0.5 mg/2 mL suspension 0.5 mg (2 mL) inhalation BID #60 mL 07/01/25 07/02/25 07/02/25 for nebulization insulin glargine 100 unit/mL (3 4 unit (0.04 mL) subcut HS #15 mL 07/01/25 07/02/25 07/01/25 mL) subcutaneous pen (Lantus Solostar U-100 Insulin) oxycodone 5 mg tablet 5 mg PO TID PRN pain #84 tabs 07/01/25 07/02/25 Unknown tiotropium bromide 2.5 2 puff inhalation DAILY #4 grams 07/01/25 07/02/25 Unknown mcg/actuation mist for inhalation (Spiriva Respimat) bumetanide 1 mg tablet 1 mg PO QAM 07/02/25 07/02/25 07/02/25 famotidine 20 mg tablet 20 mg PO QAM 07/02/25 07/02/25 07/02/25 ferrous sulfate 325 mg (65 mg 650 mg PO QPM 07/02/25 07/02/25 07/01/25 iron) tablet hydrocortisone 10 mg tablet 20 mg PO QAM 07/02/25 07/02/25 07/02/25 lisinopril 10 mg tablet 10 mg PO QAM 07/02/25 07/02/25 07/02/25 metformin 1,000 mg tablet 1,000 mg PO BID 07/02/25 07/02/25 07/02/25 mupirocin 2 % topical ointment 1 applic topical DAILY 07/02/25 07/02/25 07/01/25 testosterone 2 pump topical QPM 07/02/25 07/02/25 07/01/25 Active Medications Generic Name Dose Route Start Last Admin Trade Name Freq PRN Reason Stop Dose Admin Aripiprazole 5 mg 07/03/25 09:00 07/03/25 08:12 Aripiprazole 5 Mg Tab PO 08/02/25 08:59 5 mg QAM OBDULIO Administration Ascorbic Acid 250 mg 07/02/25 21:00 07/03/25 08:11 Ascorbic Acid 500 Mg Tab PO 08/01/25 20:59 250 mg BID OBDULIO Administration Budesonide 0.5 mg 07/02/25 19:00 07/03/25 07:25 Budesonide 0.5 Mg/2 Ml Vial (Pulmicort) INH 08/01/25 18:59 0.5 mg BIDR OBDULIO Administration Desmopressin Acetate 0.4 mg 07/02/25 21:00 07/03/25 08:12 Desmopressin Acetate 0.1 Mg Tab PO 08/01/25 20:59 0.4 mg BID OBDULIO Administration Divalproex Sodium 1,000 mg 07/03/25 09:00 07/03/25 08:11 Divalproex Delay Release 500 Mg Tab PO 08/02/25 08:59 1,000 mg QAM OBDULIO Administration Duloxetine HCl 30 mg 07/02/25 21:00 07/02/25 21:37 Duloxetine Hcl 30 Mg Cap PO 08/01/25 20:59 30 mg HS OBDULIO Administration Duloxetine HCl 60 mg 07/03/25 09:00 07/03/25 08:12 Duloxetine Hcl 60 Mg Cap PO 08/02/25 08:59 60 mg QAM OBDULIO Administration Famotidine 20 mg 07/03/25 09:00 07/03/25 08:22 Famotidine 20 Mg Tab PO 08/02/25 08:59 20 mg QAM OBDULIO Administration Finasteride 5 mg 07/03/25 09:00 07/03/25 08:12 Finasteride 5 Mg Tab PO 08/02/25 08:59 5 mg QAM OBDULIO Administration Formoterol Fumarate 20 mcg 07/02/25 19:00 07/03/25 07:25 Formoterol 20 Mcg/2 Ml Vial INH 08/01/25 18:59 20 mcg BIDR OBDULIO Administration Hydrocortisone 10 mg 07/02/25 21:00 07/02/25 21:36 Hydrocortisone 10 Mg Tab PO 08/01/25 20:59 10 mg QPM OBDULIO Administration Hydrocortisone 20 mg 07/03/25 09:00 07/03/25 08:11 Hydrocortisone 10 Mg Tab PO 08/02/25 08:59 20 mg QAM OBDULIO Administration Lacosamide 150 mg 07/02/25 21:00 07/03/25 08:21 Lacosamide 50 Mg Tablet PO 08/01/25 20:59 150 mg BID OBDULIO Administration Levetiracetam 1,000 mg 07/02/25 21:00 07/03/25 08:15 Levetiracetam 500 Mg Tab PO 08/01/25 20:59 1,000 mg Q12H OBDULIO Administration Levothyroxine Sodium 150 mcg 07/03/25 06:30 07/03/25 05:32 Levothyroxine Sodium 150 Mcg Tablet PO 08/02/25 06:29 150 mcg DAILYBB OBDULIO Administration Magnesium Oxide 400 mg 07/02/25 21:00 07/02/25 21:43 Magnesium Oxide 400 Mg Tab PO 08/01/25 20:59 400 mg HS OBDULIO Administration Metoprolol Succinate 25 mg 07/02/25 21:00 07/02/25 21:38 Metoprolol Succ 25mg Ext Rel Tab PO 08/01/25 20:59 25 mg HS OBDULIO Administration Mirtazapine 30 mg 07/02/25 21:00 07/02/25 21:42 Mirtazapine Tab 15 Mg Tab PO 08/01/25 20:59 30 mg HS OBDULIO Administration Miscellaneous 1 each 07/03/25 00:00 07/03/25 08:09 Somatropin Flexpro: Order Awaiting Action N/A 08/02/25 00:00 Not Given QS OBDULIO Mupirocin 1 appln 07/03/25 09:00 07/03/25 08:13 Mupirocin 2% Oint 22 Gm Tube TOP 08/02/25 08:59 Not Given DAILY OBDULIO Oxycodone HCl 5 mg 07/02/25 16:01 07/03/25 08:22 Oxycodone Hcl Ir 5 Mg Tab (Immediate Release) PO 07/16/25 16:00 5 mg TID PRN Administration pain Prazosin HCl 5 mg 07/02/25 21:00 07/02/25 21:42 Prazosin Hcl 1 Mg Cap PO 08/01/25 20:59 5 mg HS OBDULIO Administration Rosuvastatin Calcium 20 mg 07/03/25 09:00 07/03/25 08:10 Rosuvastatin Calcium 20 Mg Tab PO 08/02/25 08:59 20 mg QAM OBDULIO Administration Sodium Chloride 4 ml 07/02/25 19:00 07/03/25 07:25 Sodium Chlor 7% 4 Ml Neb INH 08/01/25 18:59 4 ml BIDR OBDULIO Administration Umeclidinium [place] 1 puffs 07/03/25 09:00 07/03/25 08:14 Umeclidinium [place] 62.5mcg/Blister 7 Puffs/Inhaler INH 08/02/25 08:59 1 puffs DAILY OBDULIO Administration Venlafaxine HCl 150 mg 07/03/25 09:00 07/03/25 08:10 Venlafaxine Hcl Xr 150 Mg Capxr PO 08/02/25 08:59 150 mg QAM OBDULIO Administration Vitamin B Complex 1 tab 07/03/25 09:00 07/03/25 08:10 Vitamin B Complex Tab PO 08/02/25 08:59 1 tab QAM OBDULIO Administration Vitamin D 50 mcg 07/02/25 21:00 07/02/25 21:36 Cholecalciferol 25 Mcg (1000 Units) Tab PO 08/01/25 20:59 50 mcg QPM OBDULIO Administration Zinc Sulfate 220 mg 07/03/25 09:00 07/03/25 08:10 Zinc Sulfate 220 Mg Capsule PO 08/02/25 08:59 220 mg QAM OBDULIO Administration Past Anesthesia History No Hx of Anesthesia Complications and No Family Hx of Anesthesia Complications History of PONV No Hx of PONV and No Hx of Motion Sickness NPO Date Last Intake of Fluids: 07/02/25 Time Last Intake of Fluids: 18:00 Date Last Intake of Solids: 06/30/25 Time Last Intake of Solids: 14:00 Home Medications Home Medications Medication Instructions Recorded Confirmed Last Taken mirtazapine 30 mg tablet (Remeron) 30 mg PO HS 06/23/22 07/02/25 07/01/25 fluticasone propionate 50 1 spray intranasal HS PRN allergy 03/16/23 07/02/25 06/22/25 mcg/actuation nasal symptoms #16 grams spray,suspension (Flonase Allergy Relief) FreeStyle Rosalie 2 [place] (flash #1 ea 05/13/23 07/01/25 Unknown glucose scanning reader) blood sugar diagnostic (OneTouch #150 ea 11/22/23 07/01/25 Unknown Verio test strips) blood-glucose meter (OneTouch #1 ea 11/22/23 07/01/25 Unknown Verio Reflect Meter) insulin syringe-needle U-100 1 mL #300 ea 11/22/23 07/01/25 Unknown 30 gauge x 1/2" (BD Insulin Syringe Ultra-Fine) lancets 33 gauge (OneTouch Delica #150 ea 11/22/23 07/01/25 Unknown Plus Lancet) glucagon 3 mg/actuation nasal 3 mg intranasal ONCE PRN Severe 04/06/24 07/02/25 Unknown spray (Baqsimi) Hypoglycemia aripiprazole 5 mg tablet 5 mg PO QAM 05/29/24 07/02/25 07/02/25 ipratropium 0.5 mg-albuterol 3 mg 3 ml inhalation QID PRN wheezing 07/31/24 07/02/25 Unknown (2.5 mg base)/3 mL nebulization #90 mL soln nebulizers (Compact Compressor #1 ea 07/31/24 07/01/25 Unknown Nebulizer) rosuvastatin 20 mg tablet 20 mg PO QAM #90 tabs 09/19/24 07/02/25 07/02/25 pen needle, diabetic 32 gauge x #100 ea 10/23/24 07/01/25 Unknown 5/32" (BD Vy 2nd Gen Pen Needle) vitamin B complex (Vitamins B 1 cap PO QAM #30 caps 10/26/24 07/02/25 07/02/25 Complex capsule) lorazepam 0.5 mg tablet 0.5 mg PO DAILY PRN Seizure 11/23/24 07/02/25 06/08/25 Activity levetiracetam 1,000 mg tablet 1,000 mg PO Q12H #60 tabs 11/26/24 07/02/25 07/02/25 metoprolol succinate 25 mg 25 mg PO HS #90 tabs 11/30/24 07/02/25 07/01/25 tablet,extended release 24 hr clopidogrel 75 mg tablet (Plavix) 75 mg PO QPM 12/03/24 07/02/25 07/01/25 lacosamide 150 mg tablet 150 mg PO BID #60 tabs 12/26/24 07/02/25 07/02/25 Oxygen Home 01/30/25 07/01/25 Unknown magnesium oxide 400 mg (241.3 mg 400 mg PO HS 03/01/25 07/02/25 07/01/25 magnesium) tablet quetiapine 50 mg tablet,extended 50 mg PO QAM 03/19/25 07/02/25 07/02/25 release 24 hr venlafaxine 150 mg 150 mg PO QAM 03/19/25 07/02/25 07/02/25 capsule,extended release 24 hr acetylcysteine 200 mg/mL (20 %) 2 ml inhalation BID PRN Chest 03/26/25 07/02/25 Unknown solution congestion #100 mL cholecalciferol (vitamin D3) 50 50 mcg PO QPM #90 caps 03/26/25 07/02/25 07/01/25 mcg (2,000 unit) capsule propranolol 120 mg capsule,24 120 mg PO HS 03/26/25 07/02/25 07/01/25 hr,extended release sodium chloride 7 % for 1 inh inhalation BID #240 mL 03/26/25 07/02/25 07/02/25 nebulization prazosin 5 mg capsule 5 mg PO HS 04/05/25 07/02/25 07/01/25 duloxetine 30 mg capsule,delayed 30 mg PO HS #30 caps 04/12/25 07/02/25 07/01/25 release ondansetron 8 mg disintegrating 8 mg PO Q8H PRN nausea and 04/29/25 07/02/25 Unknown tablet vomiting #30 tabs aspirin 81 mg capsule 81 mg PO QPM 05/03/25 07/02/25 07/01/25 divalproex 500 mg tablet,delayed 1,000 mg PO QAM 05/03/25 07/02/25 07/02/25 release duloxetine 60 mg capsule,delayed 60 mg PO QAM 05/03/25 07/02/25 07/02/25 release FreeStyle Rosalie 2 Sensor (flash #6 ea 05/06/25 07/01/25 Unknown glucose sensor) levothyroxine 150 mcg tablet 150 mcg PO DAILYBB #30 tabs 05/06/25 07/02/25 07/02/25 (Synthroid) desmopressin 0.2 mg tablet 0.4 mg (2 x 0.2 mg) PO BID #120 05/16/25 07/02/25 07/02/25 tabs naloxone 4 mg/actuation nasal 1 spray intranasal ONCE PRN opioid 05/18/25 07/02/25 Unknown spray (Narcan) overdose #2 ea somatropin 5 mg/1.5 mL (3.3 mg/mL) 3 mg subcut QPM 05/29/25 07/02/25 07/01/25 subcutaneous pen injector (Norditropin FlexPro) FreeStyle Rosalie 2 Plus Sensor #6 ea 06/04/25 07/01/25 Unknown (blood-glucose sensor) tirzepatide 5 mg/0.5 mL 5 mg subcut WK 06/12/25 07/02/25 06/30/25 subcutaneous pen injector (Mounjaro) ascorbic acid (vitamin C) 250 mg 250 mg PO BID #60 tabs 06/13/25 07/02/25 07/02/25 tablet hydrocortisone 10 mg tablet 10 mg PO QPM 06/13/25 07/02/25 07/01/25 dutasteride 0.5 mg capsule 0.5 mg PO QAM #90 caps 06/19/25 07/02/25 07/02/25 sumatriptan succinate 50 mg tablet 0 mg PO .COMPLEX PRN Migraine 06/23/25 07/02/25 Unknown Headache zinc sulfate 50 mg zinc (220 mg) 200 mg (4 x 50 mg zinc (220 mg)) 06/27/25 07/02/25 07/02/25 capsule (Orazinc) PO QAM #0 caps albuterol sulfate 90 mcg/actuation 2 inh inhalation Q6H PRN shortness 07/01/25 07/02/25 Unknown aerosol inhaler (Ventolin HFA) of breath or wheezing #6.7 grams arformoterol 15 mcg/2 mL solution 2 ml inhalation BID #120 mL 07/01/25 07/02/25 07/02/25 for nebulization (Brovana) budesonide 0.5 mg/2 mL suspension 0.5 mg (2 mL) inhalation BID #60 mL 07/01/25 07/02/25 07/02/25 for nebulization insulin glargine 100 unit/mL (3 4 unit (0.04 mL) subcut HS #15 mL 07/01/25 07/02/25 07/01/25 mL) subcutaneous pen (Lantus Solostar U-100 Insulin) oxycodone 5 mg tablet 5 mg PO TID PRN pain #84 tabs 07/01/25 07/02/25 Unknown tiotropium bromide 2.5 2 puff inhalation DAILY #4 grams 07/01/25 07/02/25 Unknown mcg/actuation mist for inhalation (Spiriva Respimat) bumetanide 1 mg tablet 1 mg PO QAM 07/02/25 07/02/25 07/02/25 famotidine 20 mg tablet 20 mg PO QAM 07/02/25 07/02/25 07/02/25 ferrous sulfate 325 mg (65 mg 650 mg PO QPM 07/02/25 07/02/25 07/01/25 iron) tablet hydrocortisone 10 mg tablet 20 mg PO QAM 07/02/25 07/02/25 07/02/25 lisinopril 10 mg tablet 10 mg PO QAM 07/02/25 07/02/25 07/02/25 metformin 1,000 mg tablet 1,000 mg PO BID 07/02/25 07/02/25 07/02/25 mupirocin 2 % topical ointment 1 applic topical DAILY 07/02/25 07/02/25 07/01/25 testosterone 2 pump topical QPM 07/02/25 07/02/25 07/01/25 Active Medications Generic Name Dose Route Start Last Admin Trade Name Freq PRN Reason Stop Dose Admin Aripiprazole 5 mg 07/03/25 09:00 07/03/25 08:12 Aripiprazole 5 Mg Tab PO 08/02/25 08:59 5 mg QAM OBDUILO Administration Ascorbic Acid 250 mg 07/02/25 21:00 07/03/25 08:11 Ascorbic Acid 500 Mg Tab PO 08/01/25 20:59 250 mg BID OBDULIO Administration Budesonide 0.5 mg 07/02/25 19:00 07/03/25 07:25 Budesonide 0.5 Mg/2 Ml Vial (Pulmicort) INH 08/01/25 18:59 0.5 mg BIDR OBDULIO Administration Desmopressin Acetate 0.4 mg 07/02/25 21:00 07/03/25 08:12 Desmopressin Acetate 0.1 Mg Tab PO 08/01/25 20:59 0.4 mg BID BODULIO Administration Divalproex Sodium 1,000 mg 07/03/25 09:00 07/03/25 08:11 Divalproex Delay Release 500 Mg Tab PO 08/02/25 08:59 1,000 mg QAM OBDULIO Administration Duloxetine HCl 30 mg 07/02/25 21:00 07/02/25 21:37 Duloxetine Hcl 30 Mg Cap PO 08/01/25 20:59 30 mg HS OBDULIO Administration Duloxetine HCl 60 mg 07/03/25 09:00 07/03/25 08:12 Duloxetine Hcl 60 Mg Cap PO 08/02/25 08:59 60 mg QAM OBDULIO Administration Famotidine 20 mg 07/03/25 09:00 07/03/25 08:22 Famotidine 20 Mg Tab PO 08/02/25 08:59 20 mg QAM OBUDLIO Administration Finasteride 5 mg 07/03/25 09:00 07/03/25 08:12 Finasteride 5 Mg Tab PO 08/02/25 08:59 5 mg QAM OBDULIO Administration Formoterol Fumarate 20 mcg 07/02/25 19:00 07/03/25 07:25 Formoterol 20 Mcg/2 Ml Vial INH 08/01/25 18:59 20 mcg BIDR OBDULIO Administration Hydrocortisone 10 mg 07/02/25 21:00 07/02/25 21:36 Hydrocortisone 10 Mg Tab PO 08/01/25 20:59 10 mg QPM OBDULIO Administration Hydrocortisone 20 mg 07/03/25 09:00 07/03/25 08:11 Hydrocortisone 10 Mg Tab PO 08/02/25 08:59 20 mg QAM OBDULIO Administration Lacosamide 150 mg 07/02/25 21:00 07/03/25 08:21 Lacosamide 50 Mg Tablet PO 08/01/25 20:59 150 mg BID OBDULIO Administration Levetiracetam 1,000 mg 07/02/25 21:00 07/03/25 08:15 Levetiracetam 500 Mg Tab PO 08/01/25 20:59 1,000 mg Q12H OBDULIO Administration Levothyroxine Sodium 150 mcg 07/03/25 06:30 07/03/25 05:32 Levothyroxine Sodium 150 Mcg Tablet PO 08/02/25 06:29 150 mcg DAILYBB OBDULIO Administration Magnesium Oxide 400 mg 07/02/25 21:00 07/02/25 21:43 Magnesium Oxide 400 Mg Tab PO 08/01/25 20:59 400 mg HS OBDULIO Administration Metoprolol Succinate 25 mg 07/02/25 21:00 07/02/25 21:38 Metoprolol Succ 25mg Ext Rel Tab PO 08/01/25 20:59 25 mg HS OBDULIO Administration Mirtazapine 30 mg 07/02/25 21:00 07/02/25 21:42 Mirtazapine Tab 15 Mg Tab PO 08/01/25 20:59 30 mg HS OBDULIO Administration Miscellaneous 1 each 07/03/25 00:00 07/03/25 08:09 Somatropin Flexpro: Order Awaiting Action N/A 08/02/25 00:00 Not Given QS OBDULIO Mupirocin 1 appln 07/03/25 09:00 07/03/25 08:13 Mupirocin 2% Oint 22 Gm Tube TOP 08/02/25 08:59 Not Given DAILY OBDULIO Oxycodone HCl 5 mg 07/02/25 16:01 07/03/25 08:22 Oxycodone Hcl Ir 5 Mg Tab (Immediate Release) PO 07/16/25 16:00 5 mg TID PRN Administration pain Prazosin HCl 5 mg 07/02/25 21:00 07/02/25 21:42 Prazosin Hcl 1 Mg Cap PO 08/01/25 20:59 5 mg HS OBDULIO Administration Rosuvastatin Calcium 20 mg 07/03/25 09:00 07/03/25 08:10 Rosuvastatin Calcium 20 Mg Tab PO 08/02/25 08:59 20 mg QAM OBDULIO Administration Sodium Chloride 4 ml 07/02/25 19:00 07/03/25 07:25 Sodium Chlor 7% 4 Ml Neb INH 08/01/25 18:59 4 ml BIDR OBDULIO Administration Umeclidinium [place] 1 puffs 07/03/25 09:00 07/03/25 08:14 Umeclidinium [place] 62.5mcg/Blister 7 Puffs/Inhaler INH 08/02/25 08:59 1 puffs DAILY OBDULIO Administration Venlafaxine HCl 150 mg 07/03/25 09:00 07/03/25 08:10 Venlafaxine Hcl Xr 150 Mg Capxr PO 08/02/25 08:59 150 mg QAM OBDULIO Administration Vitamin B Complex 1 tab 07/03/25 09:00 07/03/25 08:10 Vitamin B Complex Tab PO 08/02/25 08:59 1 tab QAM OBDULIO Administration Vitamin D 50 mcg 07/02/25 21:00 07/02/25 21:36 Cholecalciferol 25 Mcg (1000 Units) Tab PO 08/01/25 20:59 50 mcg QPM OBDULIO Administration Zinc Sulfate 220 mg 07/03/25 09:00 07/03/25 08:10 Zinc Sulfate 220 Mg Capsule PO 08/02/25 08:59 220 mg QAM OBDULIO Administration Exercise / Class Metabolic Activity Metabolic Activity: III < 4 Walking/Shop/Light housework Physical Exam Constitutional: + obese; no acute distress Mouth: + TMJ abnormality, + dentition abnormality, + caries, + poor dentition and + chipped teeth Thyromental Distance: > or= 3.5 Finger Breadths Mallampati Class: III Neck: + visual inspection normal Respiratory: + respiratory effort normal and + clear to auscultation bilaterally; no respiratory distress Cardiovascular: + regular rate and + regular rhythm Musculoskeletal: + limited cervical ROM Neurologic: + moves all extremities Psychiatric: + alert and + oriented x 3 ASA ASA3 Proposed Anesthesia Proposed Anesthesia: General Risk / Benefits Reviewed With: PT / POA / Parent / Guardian, Accepts Plan and Informed Consent Obtained
[2025-07-03] MEDS ORDERED: MIDAZOLAM HCL 1 MG/ML 2ML VIAL ONE (12:01)
[2025-07-03] MEDS ORDERED: SUCCINYLCHOLINE CHLORIDE 20 MG/ML 10 ML VIAL IV ONE (12:02)
[2025-07-03] MEDS ORDERED: HYDROCORTISONE SOD SUCCINATE 100 MG/2 ML VIAL ONE (12:03)
[2025-07-03] MEDS ORDERED: ONDANSETRON INJ 2 MG/ML 2 ML VIAL ONE (12:07)
[2025-07-03] MEDS ORDERED: ATROPINE SULFATE 0.1 MG/ML 10ML SYR IV PRN (12:08)
[2025-07-03] MEDS ORDERED: ONDANSETRON INJ 2 MG/ML 2 ML VIAL IV PRN (12:08)
[2025-07-03] MEDS ORDERED: PHENYLEPHRINE 100MCG/ML 5ML SYR ONE (13:01)
--- NOTE | 2025-07-03 13:18 | Communication Note ---
Date of Service: July 03, 2025 Flexible sigmoidoscopy to descending colon. There is blood around the anus and anal canal. There is no blood in the rectum itself. There was nonbloody stool in the sigmoid and descending colon. Scope could not be advanced beyond here due to solid fecal material and lack of luminal visualization. There is grade 2 hemorrhoids. There is a posterior anal fissure with spontaneous bleeding. This accounts for the bleeding noted today. I whether he has concomitant hemorrhoidal bleeding in addition is possible. There was certainly no evidence of inflammatory bowel disease. Patient had a full colonoscopy by Dr. Watt in 2023 for possible colitis again negative for that disease. At this point I would treat him with a fiber supplement Benefiber every day or every other day. Can use Anusol or Preparation H for noted hemorrhoids. The fissure does not show significant induration suggest surgical intervention is required. Should heal with time. Patient does have evidence of some iron deficiency. Percent saturation 11 though other iron stores normal. May benefit from an iron supplement. Follow-up in 2 to 3 weeks with GI as an outpatient.
--- NOTE | 2025-07-03 13:27 | GI REPORT ---
[facility] Patient: LINSEY VIRAMONTES : 1970 Sex at : Male Age: 55 Years Procedure: Flexible Sigmoidoscopy Date: 07/03/2025 Attending Physician: Sean Patel MD Referring MD: Referred Self Indications: - Rectal hemorrhage Medications: - See the Anesthesia note for documentation of the administered medications Complications: - No immediate complications. Estimated Blood Loss: - Estimated blood loss: None. Procedure: - The adult colonoscope was introduced through the anus and advanced to the descending colon. - The flexible sigmoidoscopy was accomplished without difficulty. - The patient tolerated the procedure well. - The quality of the bowel preparation was fair. Findings: - An anal fissure was found on perianal exam. - Internal hemorrhoids were found during retroflexion. The hemorrhoids were medium-sized. - Rectum sigmoid and descending colon mucosa was free of any evidence of inflammatory bowel disease polyps or neoplasia. There was no blood in the left colon. There was fresh blood around the anal area consistent with the anal fissure and hemorrhoids identified as source Impression: - Preparation of the colon was fair. - Anal fissure found on perianal exam. - Internal hemorrhoids. - Rectum sigmoid and descending colon mucosa was free of any evidence of inflammatory bowel disease polyps or neoplasia. There was no blood in the left colon. There was fresh blood around the anal area consistent with the anal fissure and hemorrhoids identified as source - No specimens collected. - Anal fissure hemorrhoids a source of bleeding. Colace 100 twice daily x 2 to 3 months. Can use preparation or Anusol cream for hemorrhoids. Recommendation: Procedure Code(s): - 94626, Sigmoidoscopy, flexible; diagnostic, including collection of specimen(s) by brushing or washing, when performed (separate procedure) Diagnosis Code(s): - K62.5, Hemorrhage of anus and rectum - K60.2, Anal fissure, unspecified - K64.8, Other hemorrhoids CPT(R) - 2023 copyright [employer]. All Rights Reserved. The CPT codes, CCI edits and ICD codes generated are intended as suggestions and were generated based on input data. These codes are preliminary and upon animal science professor review may be revised to meet current compliance and payer requirements. The provider is responsible for the final determination of appropriate codes, and modifiers. Sean Patel MD This document has been electronically signed. Note Initiated:07/03/2025 Note Completed:07/03/2025 1:26 PM \\[id number]
--- NOTE | 2025-07-03 13:46 | Anesthesiology Progress Note ---
Date of Service July 03, 2025 Anesthesia Post Procedure Vital Signs Vital Signs: Temp Pulse Pulse Pulse Resp BP BP 07/03/25 13:40 90 16 128/76 07/03/25 13:30 88 18 131/76 07/03/25 13:23 36.0 C L 88 12 129/77 07/03/25 11:15 36.9 C 90 20 144/87 H 07/03/25 07:40 84 07/03/25 07:26 75 18 07/03/25 07:16 36.7 C 81 18 129/74 07/03/25 03:20 36.5 C 83 18 115/72 07/02/25 22:42 36.5 C 83 18 123/76 07/02/25 19:58 36.6 C 81 18 114/62 07/02/25 19:33 87 18 07/02/25 18:17 87 07/02/25 17:48 36.4 C L 85 18 147/87 H 07/02/25 16:01 87 16 130/53 L 07/02/25 15:24 89 16 116/66 07/02/25 15:00 90 16 130/53 L 07/02/25 14:54 91 H 20 116/66 07/02/25 14:31 91 H 07/02/25 14:14 23 Pulse Ox O2 Del Method O2 Flow Rate 07/03/25 13:40 94 Oxymask 6 07/03/25 13:30 94 Oxymask 8 07/03/25 13:23 93 Oxymask 10 07/03/25 11:15 93 Room Air 07/03/25 07:40 07/03/25 07:26 91 Room Air 07/03/25 07:16 92 Room Air 07/03/25 03:20 93 Room Air 07/02/25 22:42 94 Room Air 07/02/25 19:58 96 Room Air 07/02/25 19:33 93 Room Air 07/02/25 18:17 07/02/25 17:48 96 Room Air 07/02/25 16:01 99 Room Air 07/02/25 15:24 97 Room Air 07/02/25 15:00 98 Room Air 07/02/25 14:54 98 Room Air 07/02/25 14:31 07/02/25 14:14 Pain Intensity Head: Pain Intensity: 5 Left Knee: Pain Intensity: 8 Bilateral Lower Abdomen: Pain Intensity: 6 Transfer of Care Handoff Completed per policy Notes Mental Status: alert / awake / arousable Patient Amnestic to Procedure: Yes Nausea / Vomiting: adequately controlled Pain: adequately controlled Airway Patency, RR, SpO2: stable & adequate BP & HR: stable & adequate Hydration State: stable & adequate Anesthetic Complications: no major complications apparent and Pt Satisfied with anesthetic care
--- NOTE | 2025-07-03 16:43 | Hospitalist Progress Note ---
Date of Service July 03, 2025 Assessment & Plan (1) Hematochezia: (2) Blood loss anemia: Plan Anders Leiva is a 55 yo male with PMH of ulcerative colitis, A-fib (off eliquis), adrenal insufficiency, CKD, COPD (2 liter), PTSD, bipolar, anxiety disorder, hypothyroidism, LPRD, he's been having recurrent fall episodes. was just dc from our hospuital with dehydration, QUENTIN, urinary hesitancy. he's was orthostatic on that admission. at that time, bumex switched to PRN and there was plan to reduced his propranolol if falling episode persist. there also concern about polypharmacy from his psych med on 07/02, presented with blood loss anemia, QUENTIN on CKD and falling episode, he still on aspirin plavix, GI was consulted. s/p 2 units of pRBC by ED attending on 07/03, s/p sigmoidoscopy with anal hemorrhage and anal fissure. still has urinary hesistancy, stil has dizziness 1. blood loss anemia 2. QUENTIN on CKD 3. falling episodes 4. hx of ulcerative colitis 5. adrenal insufficiency 6. diabetes (insulin dependent) 7. CKD 8. COPD ( two liter) 9. seizure disorder 10. PTSD, bipolar, anxiety disorder, depression 11. urinary hesitancy, strong Fhx of prostate cancer 12. chronic back pain. overall plan still has dizziness, need PT clearance carb control diet restarted, sigmoidoscopy found anal hemorrhoid doucsate BID for 2-3 months bladder scan for urinary hesistancy may need to adjust his prostate medicine lumbar and cervical spine MRI to recurrent fall 1. blood loss anemia, rectal hemorrhoid s/p CT abdomen without contrast sigmoidoscopy on 07/03. docusate BID for 3 moths 2. QUENTIN on CKD hold lisinopril, hold metformin bladder scan to r/o retentio n lower dose of insulin. 3. falling episode, been having multiple fall f/u on MRI lumbar, Cervical spine MRI, orthostatic BP likely polypharmacy 4. 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 COPD 2 liter (he's on formterol, budesonide, duoneb, hypertonic saline) 6. adrenal insufficiency, hydrocortisone and desmopressin 7. A-fib, hypertension, he's on metoprolol 25mg ER, he's also on propranolol 120mg qHS 8. PTSD, bipolar, anxiety disorder, depression he's on prazosin 5mg, abilify 5mg qam, venlafaxine 150mg qAM he's also on cymbalta 50mg 9. diabetes he's usually on metformin 1000mg BID, this need to be renally dose he's on lantus 8 units qHS he's mounjaro 5mg sub-Q 10, hypothyroidism-synthyroid 150 mcg 11. HLD, strong FHx of heart disease, he's on crestor 20mg 12. BPH, he's on dusteride 0.5mg Admission and Anticipated Discharge Date Admission Date: July 02, 2025 Subjective he s/p sigmoidoscopy and found bleeding anal hemorrhoid and anal fissue recommended by GI for colace BID for 2-3 months and anusol cream he still has dizziness and urinary retention bladder scan and need PT clearance prior to discharge Review of Systems Review of Systems: Constitutional: No Weight Change, No Fever, No Chills, No Night Sweats, No Fatigue, No Malaise Cardiovascular: No Chest Pain, No SOB, No PND, No Dyspnea on Exertion, No Orthopnea, No Claudication, No Edema, No Palpitations Respiratory: No Cough, No Sputum, No Wheezing, No Smoke Exposure, No Dyspnea Gastrointestinal: + for rectal bleeding; no abdominal pain; no melena Genitourinary: + for urinary hesitancy Neuro: + for dizziness; + for hx of seizure Heme/Lymph: No Bruising, No Bleeding, No Transfusions History, No Lymphadenopathy Endocrine: No Polyuria, No Polydipsia, No Temperature Intolerance Physical Exam Physical Exam: VITALS: Reviewed. WEIGHT/BMI reviewed. GEN: Healthy appearing, well-developed, NAD. PSYCH: Good Judgment. AOx3. -Head: NC/AT; NECK: Supple, with no masses. CV: RRR, no m/r/g. LUNGS: CTAB, no w/r/c. ABD: Soft, NT/ND, NBS, no masses or organomegaly. + for suprapubic tenderness; soft to touch : N/A SKIN: Warm, well perfused. No skin rashes or abnormal lesions. MSK: No deformities, Normal gait. EXT: No clubbing, cyanosis, or edema. NEURO: AAOx3 . Results & Data Results & Data Vital Signs (Past 12 Hours) Vital Signs Temp Pulse Pulse Pulse Resp BP Pulse Ox 07/03/25 15:19 36.6 C 87 18 136/85 91 07/03/25 13:50 36.6 C 88 20 127/86 95 07/03/25 13:40 90 16 128/76 94 07/03/25 13:30 88 18 131/76 94 07/03/25 13:23 36.0 C L 88 12 129/77 93 07/03/25 11:15 36.9 C 90 20 144/87 H 93 07/03/25 07:40 84 07/03/25 07:26 75 18 91 07/03/25 07:16 36.7 C 81 18 129/74 92 O2 Del Method O2 Flow Rate 07/03/25 15:19 Room Air 07/03/25 13:50 Oxymask 3 07/03/25 13:40 Oxymask 6 07/03/25 13:30 Oxymask 8 07/03/25 13:23 Oxymask 10 07/03/25 11:15 Room Air 07/03/25 07:40 07/03/25 07:26 Room Air 07/03/25 07:16 Room Air Laboratory Results Laboratory Results - last 72 hr 07/02/25 07/02/25 07/02/25 10:12 10:15 10:23 WBC 5.00 RBC 2.78 L Hgb 7.8 L POC Hgb 6.8 L* Hct 23.8 L POC Hct 20 L* MCV 85.6 MCH 28.1 MCHC 32.8 RDW Std Deviation 46.3 RDW Coeff of Yanira 14.7 H Plt Count 162 MPV 8.9 L PT 13.0 H INR 1.2 H APTT 33 H PTT Ratio 1.2 POC Sodium 136 Sodium 136 POC Potassium 4.4 Potassium 4.4 POC Chloride 101 Chloride 103 Carbon Dioxide 23 POC Total CO2 22 L Anion Gap 10 POC Anion Gap 19.0 POC BUN 6 L BUN 8 Creatinine 2.54 H POC Creatinine 2.7 H Est Cr Clr Drug Dosing 40.6 eGFR 28.68 BUN/Creatinine Ratio 3.1 L Glucose 90 POC Glucose 87 POC Glucose (other) 87 Calcium 8.2 L POC Ioniz Calcium Jeny 1.11 L Iron 36 TIBC 314 Transferrin 224 Transferrin % Sat 11 L Ferritin 54.8 Total Bilirubin 0.5 AST 46 H ALT 45 Alkaline Phosphatase 51 Troponin I High Sens 4.0 C-Reactive Protein 1.99 H Total Protein 5.0 L Albumin 3.2 L Globulin 1.8 L Albumin/Globulin Ratio 1.8 Prostate Specific Ag Vitamin B12 579 Folate 15.00 Blood Type Antibody Screen Crossmatch 07/02/25 07/02/25 07/02/25 10:29 14:56 17:45 WBC RBC Hgb 9.0 L POC Hgb Hct 26.6 L POC Hct MCV MCH MCHC RDW Std Deviation RDW Coeff of Yanira Plt Count MPV PT INR APTT PTT Ratio POC Sodium Sodium POC Potassium Potassium POC Chloride Chloride Carbon Dioxide POC Total CO2 Anion Gap POC Anion Gap POC BUN BUN Creatinine POC Creatinine Est Cr Clr Drug Dosing eGFR BUN/Creatinine Ratio Glucose POC Glucose 82 POC Glucose (other) Calcium POC Ioniz Calcium Jeny Iron TIBC Transferrin Transferrin % Sat Ferritin Total Bilirubin AST ALT Alkaline Phosphatase Troponin I High Sens C-Reactive Protein Total Protein Albumin Globulin Albumin/Globulin Ratio Prostate Specific Ag Vitamin B12 Folate Blood Type A Negative Antibody Screen NEGATIVE Crossmatch See Detail 07/03/25 05:23 WBC 3.88 L RBC 3.03 L Hgb 8.5 L POC Hgb Hct 25.4 L POC Hct MCV 83.8 MCH 28.1 MCHC 33.5 RDW Std Deviation 42.7 RDW Coeff of Yanira 13.9 Plt Count 140 MPV 9.0 L PT INR APTT PTT Ratio POC Sodium Sodium 136 POC Potassium Potassium 4.6 POC Chloride Chloride 106 Carbon Dioxide 24 POC Total CO2 Anion Gap 6 POC Anion Gap POC BUN BUN 12 Creatinine 1.67 H D POC Creatinine Est Cr Clr Drug Dosing 60.5 eGFR 47.44 BUN/Creatinine Ratio 7.2 L Glucose 108 H POC Glucose POC Glucose (other) Calcium 7.9 L POC Ioniz Calcium Jeny Iron TIBC Transferrin Transferrin % Sat Ferritin Total Bilirubin 0.6 AST 24 ALT 30 Alkaline Phosphatase 49 Troponin I High Sens C-Reactive Protein Total Protein 4.8 L Albumin 3.3 L Globulin 1.5 L Albumin/Globulin Ratio 2.2 H Prostate Specific Ag 0.009 Vitamin B12 Folate Blood Type Antibody Screen Crossmatch PG Care Time/CCT Total # of Minutes Spent Total Time Spent with Patient: Total time spent is greater than 50% in coordination of care (as documented) at patient's floor/unit and/or counseling patient: Coding Level of Care Code 49648 SUB INP/OBS CARE 2/35MIN Diagnoses Hematochezia K92.1 Blood loss anemia D50.0 Time Spent (min) 35
--- NOTE | 2025-07-03 20:32 | Magnetic Resonance Report ---
MRI CERVICAL SPINE WITHOUT CONTRAST TECHNIQUE: An MRI examination of the cervical spine was performed. The examination consists of sagittal T1-weighted, inversion recovery and T2 weighted images as well as axial T1-weighted, T2-weighted and gradient echo images. INDICATION: Neck pain COMPARISON: None. FINDINGS: No significant vertebral body height loss. No significant spondylolisthesis. Bone marrow signal is unremarkable. he spinal cord bulk is normal. Visualized soft tissues of the neck, brain and thorax are unremarkable. There are multilevel degenerative changes of the cervical spine as below: C2-3: Mild disc osteophyte complex, bilateral facet and uncovertebral hypertrophy. No significant spinal canal or neural foraminal narrowing identified at this level. C3-4: Disc osteophyte complex that is more eccentric to the left, bilateral facet and uncovertebral hypertrophy. These changes result in moderate narrowing of the left neural foramen and mild narrowing of the right neural foramen. No significant spinal canal narrowing. C4-5: Prominent disc osteophyte complex, bilateral facet and uncovertebral hypertrophy resulting in bilateral severe neural foraminal narrowing. No significant spinal canal narrowing. C5-6: Disc osteophyte complex, bilateral facet and uncovertebral hypertrophy resulting in bilateral moderate neural foraminal narrowing. No significant spinal canal narrowing. C6-7: Mild disc osteophyte complex, bilateral facet and uncovertebral hypertrophy. No significant spinal canal or neural foraminal narrowing identified at this level. C7-T1: Mild disc osteophyte complex, bilateral facet and uncovertebral hypertrophy. No significant spinal canal or neural foraminal narrowing identified at this level. Large retrocerebellar cystic spaces likely representing arachnoid cysts IMPRESSION: No acute process identified in the cervical spine. Multilevel degenerative changes of the cervical spine, most pronounced at C4-6. Electronically signed by Leobardo Larry 07-03-2025 8:32 PM
[2025-07-03] MEDS: DOCUSATE SODIUM SYRUP 100 MG/10 ML UDC PO SCH (20:47)
[2025-07-03] MEDS: DOCUSATE SODIUM 100 MG CAP PO SCH (20:47)
--- NOTE | 2025-07-03 21:38 | Magnetic Resonance Report ---
Exam(s): MRI L SPINE Without Contrast EXAM: MR Lumbar Spine Without Intravenous Contrast CLINICAL HISTORY: recurrent fall, r/o lumbar stenosis. TECHNIQUE: Magnetic resonance images of the lumbar spine without intravenous contrast in multiple planes. COMPARISON: CT lumbar spine 07/02/2025. FINDINGS: Vertebrae: Status post posterior laminectomy at L5. Metal artifact from bilateral pedicle screws and a posterior paraspinal vertical fixation rods at L5 and S1. Maintenance of height of the vertebral bodies. Minimal posterior subluxation of L4 on L5 and anterior subluxation of L5 on S1, unchanged. Mild degenerative related marrow changes centered at L5-S1. Marrow signal intensity is otherwise within normal limits. No evidence for acute fracture, discitis or osteomyelitis. Spinal cord: Conus medullaris is T12-L1 and is unremarkable. Cauda equina is unremarkable. No intraspinal mass or collection. Soft tissues: No paraspinal collection. Postoperative changes in the posterior paraspinal fat from L4 through S1. DISCS/SPINAL CANAL/NEURAL FORAMINA: L1-L2: Unremarkable. No significant disc disease. No stenosis. L2-L3: Unremarkable. No significant disc disease. No stenosis. L3-L4: Unremarkable. No significant disc disease. No stenosis. L4-L5: Minimal posterior disc bulge abutting the ventral epidural fat. Moderate bilateral facet and ligamentum flavum hypertrophy. No significant central canal stenosis. Mild bilateral neural foraminal stenosis. L5-S1: Posterior laminectomy defect. Prominent epidural fat in the anterior aspect of the spinal canal. Interbody fusion material. Minimal posterior disc bulge or scarring effacing the ventral epidural fat. Bilateral partial facetectomy with fat in the posterior paraspinal defects. No significant central canal stenosis. Mild bilateral neural foraminal stenosis. IMPRESSION: Postoperative changes at L5-S1 as described above without associated significant stenosis. Mild disc and facet degenerative changes at L4-5 with associated mild bilateral neural foraminal stenosis. Otherwise no change. Electronically signed by: Brad Cordova M.D. 07/03/25 21:37 PM
[2025-07-04 06:23] LABS: Hematocrit (blood only) 23.1 % (42.0-52.0); Hemoglobin 8.1 g/dl (14.0-18.0); Mean Corpuscular Hemoglobin 28.7 pg (25.0-34.0); Mean Corpuscular Volume 81.9 fL (80.0-100.0); Platelet Count 148 K/uL (130-400); RDW Standard Deviation 41.1 fL (36.4-46.3); Red Blood Count 2.82 M/uL (4.70-6.10); White Blood Count 6.15 K/ul (4.8-10.8)
[2025-07-04 06:41] LABS: Alanine Aminotransferase 21.0 U/L (7-52); Albumin Globulin Ratio 2.3 (0.9-2); Alkaline Phosphatase 50.0 U/L (34-104); Anion Gap 6.0 (3-11); Bilirubin,Total 0.4 mg/dl (0.2-1.0); Blood Urea Nitrogen 12.0 mg/dl (6-23); Calcium 7.7 mg/dl (8.6-10.3); Carbon Dioxide 25.0 mmol/L (21-32); Chloride 104.0 mmol/L (98-107); Creatinine Clr Calc Pharmacy 95.4 ml/min; Globulin 1.5 gm/dl (2.5-4.0); Glucose 149.0 mg/dl (70-99(Fasting)); Potassium 3.8 mmol/L (3.5-5.1); Sodium 135.0 mmol/L (136-145); Total Protein 4.9 gm/dl (6.0-8.3)
[2025-07-04 07:05] VITALS: O2SAT 96
[2025-07-04 07:38] VITALS: RESP 19
[2025-07-04 11:08] VITALS: BP 125/87; TEMP 97.9
--- NOTE | 2025-07-04 12:45 | Gastroenterology Progress Note ---
Date of Service July 04, 2025 Assessment & Plan (1) Hematochezia: (2) Blood loss anemia: Plan 55yowm with h/o panhypopituitarism with diabetes insipidus, hypothyroidism, growth hormone deficiency, adrenal insufficiency, T2DM, psychogenic nonepileptic seizure, lumbar radiculopathy, COPD, Asthma, Venous stasis ulcer, Demyelinating disease, BRCA gene mutation positive. Migraine, Idiopathic polyneuropathy, Depression and anxiety is seen today in ER for blood loss anemia and reported hematochezia and questionable ulcerative colitis. (1) Blood loss anemia and hematochezia 2/2 hemorrhoidal fissure. Iron deficiency - Recommended ongoing treatment with Colace x 2-3 months to allow healing. - Recommend follow up with outpatient GI if s/s are persistent. - He was found to be iron deficient as evidenced with Ferritin 54.8 and transferrin saturation of 11%. Recommend Ferrous sulfate 325mg QD with f/u CBC and iron studies (ferritin and iron panel) in 4-6 weeks with PCP follow up. Patient educated on potential for black stools and constipation. May use Miralax and/or colace to assist with constipation. If not well tolerated then may f/u with PCP to discuss parenteral Iron replacement. Admission and Anticipated Discharge Date Admission Date: July 02, 2025 Supervising Physician Co-Signing Physician Notes dischargwe prior to being seen Subjective 55yowm with h/o panhypopituitarism with diabetes insipidus, hypothyroidism, growth hormone deficiency, adrenal insufficiency, T2DM, psychogenic nonepileptic seizure, lumbar radiculopathy, COPD, Asthma, Venous stasis ulcer, Demyelinating disease, BRCA gene mutation positive. Migraine, Idiopathic polyneuropathy, Depression and anxiety is seen today in ER for blood loss anemia and reported hematochezia and questionable ulcerative colitis. HPI 07/04/25 - GI rounds Patient seen today on GI rounds. Patient states he's feeling great. No concerns. Ready to go home. Sigmoidoscopy 07/03/25 Dr. Patel Impression: - Preparation of the colon was fair. - Anal fissure found on perianal exam. - Internal hemorrhoids. - Rectum sigmoid and descending colon mucosa was free of any evidence of inflammatory bowel disease polyps or neoplasia. There was no blood in the left colon. There was fresh blood around the anal area consistent with the anal fissure and hemorrhoids identified as source - No specimens collected. - Anal fissure hemorrhoids a source of bleeding. Colace 100 twice daily x 2 to 3 months. Can use preparation or Anusol cream for hemorrhoids. Denies any fevers, chills, abdominal pain, N/V/D, melena or hematochezia. HPI 07/02/25 - Initial GI consult Patient states he was diagnosed at age 20 at [facility]. He doesn't recall when the last time he was prescribed medications or what he took. He was last seen by our GI office 09/2022 for reported history of ulcerative colitis that was diagnosed at [facility] and a reported history of pancolitis on CT scan. Per those notes [facility] was contacted and they didn't have any records of colonoscopy. At that time patient was ordered stool studies to assess pancolitis for infection, stool calprotectin in addition to routine labs and f/u Colonoscopy. Patient hasn't been seen since then. Last colonoscopy 12/2021 was done for rectal bleeding which revealed only internal hemorrhoids. Recommended a 10 year follow up. On the day of his arrival that he typically has 5-6 loose BMs a day. About 1/3rd have bright red blood mixed in. Over the last couple days these have been 100% bloody with vomiting x 2 days. Associated with + Urgency, nocturna stools (rarely), + weight loss (270=> 231# over 4 months per patient). He reports cramping but denies any issues until reported vomiting over the last couple of days. Vomit is described as clear He denies any fevers, tenesmus, black tarry stools, dysphagia, SOB or CP. He denies coffee grounds or blood. Social History - Denies alcohol, drug or tobacco use. Surgical History - Denies any GI surgeries. Has gallbladder, appendix. No hx of resection. Family history - + Mother for IBS. No IBD or celiac disease. Pertinent History - POC Hgb 6.8 on arrival CBC 07/02/25 - 7.8g/dl Hct 23.8%, Plt 162k/ul, WBC 5.0 k/ul. POC Hgb 9.0/26.6% after 2UPRBCs. CMP 07/02/25 - Glucose 90, BUN 8 Cr 2.54, Cl 103, CO2 23, Na 136, K 4.4 Ionized Ca 1.11, T Bili 0.5, AST 46, ALT 45, Alk phos 51 CT abd/pelvis 07/02/25 ABDOMEN: Liver, gallbladder, spleen, pancreas, adrenal glands, and kidneys show no evidence of acute injury on this noncontrast exam. There is no hydronephrosis. There are scattered atherosclerotic calcifications. No abdominal aortic aneurysm. Pelvis: Prostate is mildly enlarged with multiple calcifications. Urinary bladder is decompressed. There are a few colonic diverticula without evidence of acute diverticulitis. Normal appendix. No bowel inflammation or obstruction seen. No free fluid, free air, or abscess. No enlarged adenopathy. No hematoma seen. Osseous structures: No acute fracture seen at the visualized osseous structures. IMPRESSION: No acute findings seen. Otherwise as described. CT head, Cervical spine, thoracic spine 07/02/25 - negative for fracture. CT scan abd/pelvis - on dates 09/2022, 05/2023, 11/2023, 03/2024, 06/2024, 08/31/24, 02/2025, 03/2025, 04/2025, 05/29/2025, 06/12/2025 and 07/02/25 reviewed - No bowel pathology or inflammation noted on these scans Colonoscopy completed in 01/26/11, 07/25/2019 and 12/31/21 reviewed. No documented history of colitis on these. Colonoscopy 12/31/21 Rectal bleeding. Findings: The perianal and digital rectal examinations were normal. Non-bleeding internal hemorrhoids were found during retroflexion. The hemorrhoids were small. The exam was otherwise without abnormality. Impression: - Non-bleeding internal hemorrhoids. - The examination was otherwise normal. - No specimens collected. Recommendation: - Resume previous diet. - Continue present medications. - Repeat colonoscopy in 10 years for surveillance. - Return to primary care physician as previously scheduled. Review of Systems Review of Systems: See HPI Physical Exam Physical Exam: Constitutional: NAD. Alert. Answering questions appropriately. Respiratory: Breathing is even, non-labored. Lungs kong are clear to auscultation anteriorly. Cardiovascular: Regular Rate and Rhythm, no murmurs, rubs or gallops appreciated. Gastrointestinal (Abdomen): Normoactive bowel sounds x4, soft, non-distended, non-tender. Musculoskeletal: Lying in bed comfortably. No peripheral edema. Results & Data Results & Data Vital Signs (Past 12 Hours) Vital Signs Temp Pulse Pulse Resp BP Pulse Ox O2 Del Method 07/04/25 11:07 97.9 F 106 H 19 125/87 96 Room Air 07/04/25 07:37 97.5 F L 87 19 143/84 H 96 Room Air 07/04/25 07:04 87 18 96 Room Air 07/04/25 05:13 89 07/04/25 03:20 97.5 F L 86 19 141/81 H 94 Room Air PG Care Time/CCT Total # of Minutes Spent Total Time Spent with Patient: Total time spent is greater than 50% in coordination of care (as documented) at patient's floor/unit and/or counseling patient: Coding Level of Care Code 28104 SUB INP/OBS CARE 12/15MIN Diagnoses Hematochezia K92.1 Blood loss anemia D50.0
[2025-07-04 14:56] VITALS: PULSE 106
--- NOTE | 2025-07-04 19:11 | Discharge Summary ---
Discharge Summary Date of Service July 04, 2025 Principal Dx & Hospital Course #1 = Principal Diagnosis (1) Hematochezia: he's been having hematochezia for 24-48 hours and noted to has blood loss anemia, with H/H of 6.8 and s/p blood transfusion he was seen by GI; s/p sigmoidoscopy and found to has anal hemorrhoid, and anal fissure. he was started on docusate BID, miralax BID and PRN anusol cream to hemorrhoidal cream. he was advised that he need to take ferrous supplement for several weeks and GI will monitor for his iron panel he's understand that he may required IV iron infusion if iron remained low on admission, he was in QUENTIN with creatinine of 2.7 lisinopril held for 48 hours and creatinine improved from 1.67 (07/03)--> 1.06 (07/04) for his recurrent fall, cervical and lumbar MRI negative for stenosis. patient was advised about fall precaution. he's was dc home and his casey saw operator noted already set up with home services with [facility] updated. (2) Blood loss anemia: Francois Leiva is a 55 yo male with PMH of ulcerative colitis, A-fib (off eliquis), adrenal insufficiency, CKD, COPD (2 liter), PTSD, bipolar, anxiety disorder, hypothyroidism, LPRD, he's been having recurrent fall episodes. was just dc from our hospuital with dehydration, QUENTIN, urinary hesitancy. he's was orthostatic on that admission. at that time, bumex switched to PRN and there was plan to reduced his propranolol if falling episode persist. there also concern about polypharmacy from his psych med on 07/02, presented with blood loss anemia, QUENTIN on CKD and falling episode, he still on aspirin plavix, GI was consulted. s/p 2 units of pRBC by ED attending on 07/03, s/p sigmoidoscopy with anal hemorrhage and anal fissure. still has urinary hesistancy, stil has dizziness 1. blood loss anemia 2. QUENTIN on CKD 3. falling episodes 4. hx of ulcerative colitis 5. adrenal insufficiency 6. diabetes (insulin dependent) 7. CKD 8. COPD ( two liter) 9. seizure disorder 10. PTSD, bipolar, anxiety disorder, depression 11. urinary hesitancy, strong Fhx of prostate cancer 12. chronic back pain. overall plan still has dizziness, need PT clearance carb control diet restarted, sigmoidoscopy found anal hemorrhoid doucsate BID for 2-3 months bladder scan for urinary hesistancy may need to adjust his prostate medicine lumbar and cervical spine MRI to recurrent fall 1. blood loss anemia, rectal hemorrhoid s/p CT abdomen without contrast sigmoidoscopy on 07/03. docusate BID for 3 moths 2. QUENTIN on CKD hold lisinopril, hold metformin bladder scan to r/o retentio n lower dose of insulin. 3. falling episode, been having multiple fall f/u on MRI lumbar, Cervical spine MRI, orthostatic BP likely polypharmacy 4. 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 COPD 2 liter (he's on formterol, budesonide, duoneb, hypertonic saline) 6. adrenal insufficiency, hydrocortisone and desmopressin 7. A-fib, hypertension, he's on metoprolol 25mg ER, he's also on propranolol 120mg qHS 8. PTSD, bipolar, anxiety disorder, depression he's on prazosin 5mg, abilify 5mg qam, venlafaxine 150mg qAM he's also on cymbalta 50mg 9. diabetes he's usually on metformin 1000mg BID, this need to be renally dose he's on lantus 8 units qHS he's mounjaro 5mg sub-Q 10, hypothyroidism-synthyroid 150 mcg 11. HLD, strong FHx of heart disease, he's on crestor 20mg 12. BPH, he's on dusteride 0.5mg Admission HPI Per Admitting Provider Mr. Anders Leiva is a 55 yo male with PMH of ulcerative colitis, A-fib s/p watchman, adrenal insufficiency, seizure disorder, tremor (on propranolol) diabetes. depression, PTSD, bipolar, COPD (2 liter). he's still on aspirin and plavix. Hospitalized from 06/26--06/27 for trouble urinating, falling and found to has QUENTIN, hemoconcentrated. his bumex was switched to PRN and there was concern for polypharmacy at that time. he's also was having limited appetite. our hospitalist collegaue was considerring cut down his other BP med and beta- benjamín if recurrent fall episodes. he's is on multiple different psych meds, but ED attending deferring adjusting his psych regime on 07/02/2025, he's presented to ED with rectal bleeding 4-5 times since yesterday; dizziness, found to be in QUENTIN on CKD . in addition, he was again having recurrent fall. he was also having nausea and vomiting and CT abdomen was completed. ED attending started him on 2 pRBC and s/p IV fluid. GI was consulted. given his falling episodes. CT head, C-spine, T spine and L-spine was completed. he's denied any easy bleeding or bruising he's denied taking eliquis. no chest pain, no shortness of breath he's been having constant dizziness sensation. Discharge Exam VITALS: Reviewed. WEIGHT/BMI reviewed. GEN: Healthy appearing, well-developed, NAD. -Head: NC/AT; NECK: Supple, with no masses. psych: no sign of psychosis; speech linear and goal directed. CV: RRR, no m/r/g. LUNGS: CTAB, no w/r/c. ABD: Soft, NT/ND, NBS, no masses or organomegaly. SKIN: Warm, well perfused. No skin rashes or abnormal lesions. MSK: No deformities, Normal gait. EXT: No clubbing, cyanosis, or edema. NEURO: Ambulating with no limitations. Normal muscle strength and tone. No focal deficits. Discharge Plan Discharge Items Patient Disposition: Home - Self-Care Reason For Visit: LOWER GI BLEEDING, QUENTIN, RECURRENT FALL Discharge Diagnosis: rectal bleeding, acute kidney injury anal hemorrhoid, anal fissure chronic constipation Condition on Discharge: Fair Activity: Per Instructions section Lifting: Gradually increase as tolerated Non-emergency contact: Primary Care Provider and Police Department Secretary Call non-emergency contact if: your symptoms worsen and you have a fever Follow-up/Referrals: Larry Amaral MD [Primary Care Provider] - 07/12/25 10:30 am Sean Patel MD [Physician] - (Please call to schedule follow up) Diet: Heart Healthy Addtl Attending Provider Instructions: repeat your kidney function in 7-10 days in addition, avoid NSAID (ibuprofen, aleve) you need to work with your primary care doctor, urologist about having prostate cancer screening. Pending Studies at Discharge: Yes Studies:: repeat basic metabolic panel to assess kidney function Stand-Alone Forms: My [facility], Smoking Cessation Medications and DC Order Prescriptions: New docusate sodium 100 mg Capsule 100 mg PO BID 30 Days Qty: 60 0RF hydrocortisone [Proctosol HC] 2.5 % cream with perineal applicator 1 applic CA DAILY PRN (Reason: hemorrhoids) 14 Days Qty: 30 0RF polyethylene glycol 3350 [Miralax] 17 gram/dose powder 17 g PO BID 30 Days Qty: 1020 0RF Continued clopidogrel [Plavix] 75 mg tablet 75 mg PO QPM fluticasone propionate [Flonase Allergy Relief] 50 mcg/actuation spray,suspension 1 spray intranasal HS PRN (Reason: allergy symptoms) Qty: 16 0RF Rx Instructions: administer into each nostril (DME) insulin syringe-needle U-100 [BD Insulin Syringe Ultra-Fine] 1 mL 30 gauge x 1/2" syringe See Rx Instructions .Route Qty: 300 1RF Rx Instructions: use tid (DME) OneTouch Verio test strips Strip See Rx Instructions .MEDSUPPLY Qty: 150 5RF Rx Instructions: check blood sugars 4 times a day (DME) blood-glucose meter [OneTouch Verio Reflect Meter] Misc See Rx Instructions miscellaneous .MEDSUPPLY Qty: 1 0RF Rx Instructions: As directed (DME) lancets [OneTouch Delica Plus Lancet] 33 gauge misc See Rx Instructions .MEDSUPPLY Qty: 150 5RF Rx Instructions: As directed check blood sugars 4 times a day rosuvastatin 20 mg tablet 20 mg PO QAM Qty: 90 2RF (DME) pen needle, diabetic [BD Vy 2nd Gen Pen Needle] 32 gauge x 5/32" needle See Rx Instructions miscellaneous .MEDSUPPLY Qty: 100 3RF Rx Instructions: inject with a new pen needle daily lorazepam 0.5 mg tablet 0.5 mg PO DAILY PRN (Reason: Seizure Activity) levetiracetam 1,000 mg tablet 1,000 mg PO Q12H Qty: 60 6RF metoprolol succinate 25 mg tablet extended release 24 hr 25 mg PO HS Qty: 90 3RF lacosamide 150 mg tablet 150 mg PO BID Qty: 60 5RF (DME) Oxygen Home Liters Per Minute See Rx Instructions .Route Rx Instructions: 4 L o2 via NC As directed, cholecalciferol (vitamin D3) 50 mcg (2,000 unit) capsule 50 mcg PO QPM Qty: 90 1RF levothyroxine [Synthroid] 150 mcg tablet 150 mcg PO DAILYBB Qty: 30 5RF (DME) FreeStyle Orsalie 2 Sensor Kit See Rx Instructions .Route Qty: 6 3RF Rx Instructions: Change every 14 days desmopressin 0.2 mg tablet 0.4 mg PO BID Qty: 120 5RF (DME) FreeStyle Rosalie 2 Plus Sensor Device See Rx Instructions .Route Qty: 6 3RF Rx Instructions: change every 15 days dutasteride 0.5 mg capsule 0.5 mg PO QAM Qty: 90 2RF Rx Instructions: TAKE 1 CAPSULE BY MOUTH DAILY IN THE MORNING (DME) FreeStyle Rosalie 2 [place] Misc See Rx Instructions .Route Qty: 1 0RF Rx Instructions: Check blood glucose before each meal mirtazapine [Remeron] 30 mg tablet 30 mg PO HS prazosin 5 mg capsule 5 mg PO HS (DME) nebulizers [Compact Compressor Nebulizer] Misc See Rx Instructions .Route Qty: 1 0RF Rx Instructions: One compact compressor nebulizer. Use as directed. Please include tubing, mouth piece and cup. ipratropium-albuterol 0.5 mg-3 mg(2.5 mg base)/3 mL solution for nebulization 3 ml inhalation QID PRN (Reason: wheezing) Qty: 90 0RF ondansetron 8 mg tablet,disintegrating 8 mg PO Q8H PRN (Reason: nausea and vomiting) Qty: 30 0RF insulin glargine [Lantus Solostar U-100 Insulin] 100 unit/mL (3 mL) insulin pen 4 unit SUBCUT HS Qty: 15 0RF Hold Instructions: Has been on hold for a few weeks per pt oxycodone 5 mg tablet 5 mg PO TID PRN (Reason: pain) Qty: 84 0RF albuterol sulfate [Ventolin HFA] 90 mcg/actuation HFA aerosol inhaler 2 inh inhalation Q6H PRN (Reason: shortness of breath or wheezing) Qty: 6.7 2RF arformoterol [Brovana] 15 mcg/2 mL solution for nebulization 2 ml inhalation BID Qty: 120 7RF budesonide 0.5 mg/2 mL suspension for nebulization 0.5 mg inhalation BID Qty: 60 7RF Spiriva Respimat 2.5 mcg/actuation mist 2 puff inhalation DAILY Qty: 4 7RF ascorbic acid (vitamin C) 250 mg tablet 250 mg PO BID Qty: 60 2RF hydrocortisone 10 mg tablet 10 mg PO QPM Rx Instructions: 2 tabs (20mg) in AM, 1 tab (10mg) in PM double dose in times of stress magnesium oxide 400 mg (241.3 mg magnesium) tablet 400 mg PO HS propranolol 120 mg capsule,extended release 24hr 120 mg PO HS sodium chloride 7 % solution for nebulization 1 inh inhalation BID Qty: 240 3RF acetylcysteine 200 mg/mL (20 %) solution 2 ml inhalation BID PRN (Reason: Chest congestion) Qty: 100 6RF Baqsimi 3 mg/actuation spray,non-aerosol 3 mg intranasal ONCE PRN (Reason: Severe Hypoglycemia) Rx Instructions: for treatment of severe hypoglycemia, second dose may be given if patient does not respond after 15 minutes . Per caregiver, pt has never has to use this medication. vitamin B complex [Vitamins B Complex] Capsule 1 cap PO QAM Qty: 30 0RF venlafaxine 150 mg capsule,extended release 24hr 150 mg PO QAM quetiapine 50 mg tablet extended release 24 hr 50 mg PO QAM duloxetine 30 mg capsule,delayed release(DR/EC) 30 mg PO HS Qty: 30 0RF Norditropin FlexPro 5 mg/1.5 mL (3.3 mg/mL) pen injector 3 mg SQ QPM sumatriptan succinate 50 mg Tablet 0 mg PO .COMPLEX PRN (Reason: Migraine Headache) Rx Instructions: UNABLE TO VERIFY STRENGTH, PT UNSURE. take 1 tab at onset of headache; if no relief may repeat 1 tab after at least 2 hrs; max = 4 tabs/24 hr aripiprazole 5 mg tablet 5 mg PO QAM divalproex 500 mg tablet,delayed release (DR/EC) 1,000 mg PO QAM duloxetine 60 mg capsule,delayed release(DR/EC) 60 mg PO QAM aspirin 81 mg capsule 81 mg PO QPM Hold Instructions: Resume on 06/12/25. Hold OFF aspirin while you are taking linezolid 600mg PO bid (05/31/2025 pm through 06/11/2025 pm) as linezolid can lower your platelet count. Restart aspirin on 06/12/2025 am. naloxone [Narcan] 4 mg/actuation spray,non-aerosol 1 spray intranasal ONCE PRN (Reason: opioid overdose) Qty: 2 2RF Mounjaro 5 mg/0.5 mL pen injector 5 mg SUBCUT WK Rx Instructions: sundays zinc sulfate [Orazinc] 50 mg zinc (220 mg) Capsule 200 mg PO QAM Qty: 0 0RF Rx Instructions: buy over the counter, reduce to 1 cap after 2-4 weeks famotidine 20 mg tablet 20 mg PO QAM lisinopril 10 mg tablet 10 mg PO QAM bumetanide 1 mg tablet 1 mg PO QAM mupirocin 2 % ointment 1 applic TOPICAL DAILY hydrocortisone 10 mg tablet 20 mg PO QAM Rx Instructions: 2 tabs (20mg) in AM, 1 tab (10mg) in PM double dose in times of stress testosterone 20.25 mg/1.25 gram (1.62 %) gel in metered-dose pump 2 pump topical QPM metformin 1,000 mg tablet 1,000 mg PO BID Changed ferrous sulfate 325 mg (65 mg iron) tablet 650 mg PO QPM 30 Days Qty: 0 0RF Discharge Orders: Discharge Order (Routine); Ordered 07/04/25 Ordered By: Mirta Chin/Other Patient Handouts: Understanding Anal Fissures, Understanding Rectal Bleeding, Diagnosing Hemorrhoids Admission Data Admit Date/Time: 07/02/25 14:20 Attending Provider: Mirta Brewer Admit Provider: Mirta Brewer Primary Care Provider: Larry Amaral Other Providers: Mirta Brewer; Sean Patel Hospital Stay Data Consultations 07/02/25 13:32 ED Decision to Admit Stat 07/02/25 14:32 Consult Gastroenterology Stat Procedures Performed Operation Date: 07/03/25 08:20 <No data on this case meets the specified criteria> Diagnostic Imagining Performed 07/02/25 10:32 CT cervical spine wo con Stat CT head/brain wo con Stat 07/02/25 10:42 CT Abdomen and Pelvis [CT abd pelvis wo con] Stat CT lumbar spine wo con Stat CT thoracic spine wo con Stat 07/03/25 16:43 MR lumbar spine wo con Routine MRI Cervical [MR cervical spine wo con] Routine Pending Results Patient Have Any Pending Studies at Discharge: Yes Discharge Instructions Given to Patient (Per Discharging Provider) repeat your kidney function in 7-10 days in addition, avoid NSAID (ibuprofen, aleve) you need to work with your primary care doctor, urologist about having prostate cancer screening. Total Time Total Time Spent Total Time Spent (In Minutes): 35 Coding Level of Care Code 71563 INP/OBS DISCH >30 MIN Diagnoses Hematochezia K92.1 Blood loss anemia D50.0 Time Spent (min) 35
== END 2025-07-04 15:15 | disposition home health service (06) | DRG 394 ==
LOC: ED 10:07 → EDINP 14:20 → 4W 16:01
DX: I48.91 Unspecified atrial fibrillation; N40.1 Benign prostatic hyperplasia with lower urinary tract symptoms; R39.11 Hesitancy of micturition; E03.9 Hypothyroidism, unspecified; Z83.3 Family history of diabetes mellitus; Z79.02 Long term (current) use of antithrombotics/antiplatelets; K64.1 Second degree hemorrhoids; E78.5 Hyperlipidemia, unspecified; K60.2 Anal fissure, unspecified; Z88.1 Allergy status to other antibiotic agents; Z79.4 Long term (current) use of insulin; E11.22 Type 2 diabetes mellitus with diabetic chronic kidney disease; E23.2 Diabetes insipidus; J44.9 Chronic obstructive pulmonary disease, unspecified; E27.40 Unspecified adrenocortical insufficiency; F31.9 Bipolar disorder, unspecified; I95.1 Orthostatic hypotension; D50.0 Iron deficiency anemia secondary to blood loss (chronic); F41.9 Anxiety disorder, unspecified; F43.10 Post-traumatic stress disorder, unspecified; Z95.828 Presence of other vascular implants and grafts; Z91.041 Radiographic dye allergy status; N18.9 Chronic kidney disease, unspecified; K51.90 Ulcerative colitis, unspecified, without complications; Z79.82 Long term (current) use of aspirin; Z79.890 Hormone replacement therapy; G40.909 Epilepsy, unspecified, not intractable, without status epilepticus; N17.9 Acute kidney failure, unspecified; R29.6 Repeated falls; K92.1 Melena

== ENCOUNTER 2025-07-12 11:15 | Observation (INO) ==
--- NOTE | 2025-07-12 11:40 | Emergency Department Note ---
Impression & Plan Generalized weakness, Dizziness, Acute dehydration, Elevated lactic acid level ED Provider Note HISTORY OF PRESENT ILLNESS: Patient is a 55-year-old male presenting with lightheadedness, nausea and diarrhea. Patient reports that he was recently admitted to the hospital and has had symptoms since discharge. He states that the symptoms have been getting progressively worse. He states he feels very lightheaded and dizzy like he is going to pass out. He reports he has been nauseous and has had a few episodes of vomiting in the last week. He does report having loose stool and states there is some dark discoloration to his stool. He reports he is also been getting progressively weaker. He denies any chest pain but reports intermittent shortness of breath. He was seen by his primary care provider today for a follow-up from his hospital discharge, and they noted that he was pale and with his symptoms that he might need a blood transfusion and referred him to the emergency department. Patient states that he got so lightheaded 3 days ago that he fell. He does not think he struck his head. He is on aspirin and Plavix. He denies any abdominal pain or chest pain at this time. Patient denies any chest pain or shortness of breath with lightheadedness. He is on aspirin and Plavix. Denies any DVT or PE history. ROS: as above PHYSICAL EXAM: Constitutional: Patient appears in no acute distress. HENT: Head: Normocephalic and atraumatic. Eyes: EOMI, PERRL Mouth/Throat: Mucous membranes moist. Neck: Trachea midline. Neck supple. Cardiovascular: RRR, No murmurs, rubs or gallops. Intact distal pulses. Pulmonary/Chest: No respiratory distress. Breath sounds clear and equal bilaterally. No wheezes or rales. Abdominal: Abdomen soft, no tenderness, rebound or guarding. Musculoskeletal: No edema, tenderness or deformity noted. Skin: Warm and dry. No rash, erythema, or cyanosis Psychiatric: Appropriate mood and affect for situation. Neurological: Alert and keenly responsive. CN II-XII grossly intact, moving all extremities equally and fully. MDM: - Vitals signs stable. - History obtained via patient. History as above. - Chronic conditions affecting care: ulcerative colitis; Afib (s/p watchman); adrenal insufficiency; seizure disorder; DM-2; depression; COPD - Differential diagnoses include, but are not limited to: Anemia; ACS; pneumonia; UTI; dysrhythmia; electrolyte abnormality; CVA intracranial hemorrhage; - Order placed for continuous cardiac monitoring. At this time, monitor showed rate of 69 bpm with normal sinus rhythm, per my interpretation. - External medical records reviewed. Primary care visit note from today was reviewed. They sent to the ER due to "ongoing dizziness and unsteadiness on his feet as well as ongoing GI symptoms." - EKG image interpreted by myself showed normal sinus rhythm. Rate 69 bpm. QT 438. No acute ischemic changes. - Laboratory workup interpreted by myself showed normal WBC; anemia (Hgb 10.5 - improved from previous 8.1); normal PT/INR; elevated lactic acid (2.6); normal troponin; normal AST/ALT; normal lipase - UA negative for infection. Noted to have trace ketonuria. - CT head wo contrast for acute intracranial pathology. - Elevated lactic acid likely secondary to acute dehydration. - Patient given 1L NS and 4 mg IV zofran in ER. On reassessment, the patient reports feeling improved. - Orthostatic vital signs within normal limits. Patient ambulated in the emergency department without any gait instability or significant dizziness. - Repeat lactic acid level rising. - Discussed results with patient. Initially plan to discharge the patient home, but with his repeat lactate level being elevated despite IV fluid hydration, will admit to hospitalist service. Initial 1 L normal saline was ordered and procalcitonin was added to the workup. Could be compounded by the patient's metformin use causing the lactic acidosis. - Discussion was had with sample case porter about patient's case and need for admission - Hospitalist consulted for admission - Patient admitted to [facility] hospitalist service for further evaluation and management. ASSESSMENT AND PLAN: Diagnosis: Generalized weakness; dizziness; acute dehydration; elevated lactic acid level Plan: Admit Past Med/Surg History Problem List (Updated 07/12/25 @ 16:13 by Homa Kelley MD) Elevated lactic acid level (Acute) Acute dehydration (Acute) Dizziness (Acute) Generalized weakness (Acute) Palliative care by specialist (Chronic) DO NOT DELETE. FOLLOWED BY PALL MED FOR COMPELX SEVERE CHRONIC PAIN SYNDROME Muscular deconditioning Hyponatremia Lumbosacral radiculopathy Nausea & vomiting (Acute) Dizziness (Acute) Acute hyponatremia (Acute) QUENTIN (acute kidney injury) (Acute) Abrasion of knee (Acute) Chronic anemia (Acute) Hypomagnesemia (Acute) Hyperphosphatemia (Acute) Acidosis, lactic (Acute) Acute encephalopathy (Acute) Vision loss, left eye Hypopituitarism Counseling regarding advanced directives and goals of care Psychogenic nonepileptic seizure Asthma COPD (chronic obstructive pulmonary disease) Intractable back pain (Acute) Numbness of right foot Advanced care planning/counseling discussion Bilateral nephrolithiasis (Chronic) Elevated lactic acid level Compartment syndrome of lower extremity Ambulatory dysfunction (Acute) Arthralgia Venous stasis ulcers (Acute) Chronic venous insufficiency (Chronic) Presbyopia of both eyes Epiretinal membrane (ERM) of left eye Ocular hypertension Secondary cataract of left eye with vision obscured Combined form of senile cataract of right eye Abnormal chest CT Demyelinating disease Esophageal dysphagia 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 Current use of proton pump inhibitor Chronic migraine without aura or status migrainosus Anemia (Acute) Ulcerative colitis Mixed hyperlipidemia Lumbar stenosis with neurogenic claudication Arachnoid cyst of posterior cranial fossa Pseudoseizures Idiopathic polyneuropathy Essential tremor Mitral regurgitation Depression Anxiety (Chronic) Medical History Therapeutic opioid-induced constipation (OIC) Bipolar 1 disorder Diabetes Palliative care by specialist Back pain at L4-L5 level Staphylococcus aureus bacteremia with sepsis Sepsis due to cellulitis Hypokalemia Abrasion of knee Frequent falls Generalized weakness Hypomagnesemia Sepsis Fever of unknown origin Generalized pain Contusion of face Hypomagnesemia Opiate dependence Hypotension Toxic metabolic encephalopathy Hyperphosphatemia Hypomagnesemia Hypocalcemia Acute hyponatremia Dizziness QUENTIN (acute kidney injury) CHI (closed head injury) Acute flank pain Kidney stones History of pneumonia (03/2025) Ocular hypertension Ulcerative colitis Mixed hyperlipidemia Lumbar stenosis with neurogenic claudication Idiopathic polyneuropathy Essential tremor Demyelinating disease Compartment syndrome of lower extremity (02/2025) Chronic venous insufficiency Back pain at L4-L5 level Arthralgia Depression with anxiety Hx of fall (11/2024) History of dysphagia Hematuria On home O2 History of recent hospitalization Sepsis Pyelonephritis Urinary tract obstruction due to kidney stone Lactic acidosis LPRD (laryngopharyngeal reflux disease) Severe obesity (BMI 35.0-35.9 with comorbidity) Uncontrolled type 2 diabetes mellitus with hyperglycemia Hypothyroidism Hypertension Non-occlusive coronary artery disease Acute dehydration Witnessed seizure-like activity Nonepileptic episode Chronic narcotic dependence COPD with exacerbation (03/2025) Anti-cyclic citrullinated peptide antibody positive Restrictive lung disease Abnormal PFTs (pulmonary function tests) 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 Secondary adrenal insufficiency Transient alteration of awareness Chronic adrenal insufficiency Leukocytosis Acute asthma exacerbation Acute on chronic hypoxic respiratory failure Migraine Hematoma Growth hormone deficiency Diaphoresis Acute hypoxic respiratory failure Influenza A (12/2024) Status epilepticus (09/13/24) Knee hemarthrosis, right (09/13/24) Acute on chronic anemia (09/13/24) Acute metabolic encephalopathy (09/13/24) Laceration of toe of right foot Closed fracture of right fibula with malunion Right fibular fracture Acute on chronic respiratory failure with hypoxia and hypercapnia Shortness of breath Chronic respiratory failure with hypoxia Obesity CKD (chronic kidney disease), stage III Peripheral edema Atrial fibrillation (02/15/24) Chronic low back pain Panhypopituitarism Toxic encephalopathy Chest pain Acute dyspnea Acute CHF Hypoglycemia Syncope and collapse Internal hemorrhoids Recurrent seizures (05/01/25) Pituitary diabetes insipidus Spondylolysis, lumbar region Right lumbar radiculopathy HTN (hypertension) Adrenal insufficiency Pituitary adenoma Hyperactive gag reflex BRCA gene positive Family history of BRCA gene mutation PTSD (post-traumatic stress disorder) Epidural lipomatosis Chronic left sacroiliac pain Benzodiazepine overdose Presence of cardiac device Hx of fracture of foot Fracture of fibula, right, closed Cerebral concussion Orthostatic hypotension Sensorineural hearing loss of both ears Rectal bleeding History of COVID-19 Mitral valve regurgitation Vertigo Lower extremity edema Elevated LFTs Bilateral hand pain Pituitary neoplasm Prostate mass Bladder mass Surgical History Presence of Watchman left atrial appendage closure device (02/2024) History of arthroplasty of left knee (2014) S/P TURP (status post transurethral resection of prostate) History of lumbar fusion (07/2022) History of cardiac cath (07/2021) S/P epidural steroid injection History of lithotripsy Status post right foot surgery History of bladder surgery History of prostate surgery (2016) History of colonoscopy History of esophagogastroduodenoscopy (EGD) History of tooth extraction History of wisdom tooth extraction History of brain surgery Family History Grandmother (Paternal) Family history of diabetes mellitus Aunt Family history of diabetes mellitus Uncle Family history of diabetes mellitus Father Prostate cancer Heart disease Osteoarthritis Mother Cardiac disorder Grandmother (Maternal) Myocardial infarction Other Asthma Cancer Hypertension No family history of adverse response to anesthesia No family history of bleeding disorder Stroke Denies family history of Ovarian cancer Breast cancer Colorectal cancer Social History Smoking Status: Never smoker Tobacco Type: Smokeless Tobacco (Dip or Chew) Second Hand Exposure: No; Do You Dip or Chew Tobacco: No; Hx Alcohol Use: No Hx Substance Use: No Preferred Language: Romanian Communication Ability: Impaired Communication Ability Comment: Unable to obtain due to patient condition. Visual Impairment: Limited Hearing Ability: Normal Wellness Director Required: No Beliefs That Will Affect Care: Uatsdin marital status: Single Current Living Situation: Family Current Living Situation Comment: and daughter in [place] current occupational status: disabled How many Children do You have: 3 How many Children do You have Comment: able to assist with care if needed Feels Safe at Home: Yes Childhood Exposure to Second-Hand Smoke: Yes (parents smoked) Diet: regular Diet Comment: going to be starting low carb/low calorie diet. caffeine: No (1/2 20 oz bottle of mountain dew. ) during the past year weight has: increased > 10 lbs Physical Activity Frequency: Daily Physical Activity Frequency Comment: walking, 1.5 miles daily. Seatbelt Use: always Do you think of yourself as: straight/heterosexual Gender Identity: Male Assistive Devices: Wheelchair Allergies Allergies Allergy/AdvReac Type Severity Reaction Status Date / Time clindamycin Allergy Intermediate SWELLING Verified 07/12/25 10:33 Iodinated Contrast Media Allergy Intermediate face/eye Verified 07/12/25 10:33 swelling Quinolones Allergy Intermediate HIVES Verified 07/12/25 10:33 tomato Allergy Intermediate swelling Verified 07/12/25 10:33 Home Meds Home Medications Medication Instructions Recorded Confirmed mirtazapine 30 mg tablet (Remeron) 30 mg PO HS 06/23/22 07/12/25 glucagon 3 mg/actuation nasal 3 mg intranasal ONCE PRN Severe 04/06/24 07/12/25 spray (Baqsimi) Hypoglycemia aripiprazole 5 mg tablet 5 mg PO QAM 05/29/24 07/12/25 lorazepam 0.5 mg tablet 0.5 mg PO DAILY PRN Seizure 11/23/24 07/12/25 Activity clopidogrel 75 mg tablet (Plavix) 75 mg PO QPM 12/03/24 07/12/25 Oxygen Home 01/30/25 07/12/25 magnesium oxide 400 mg (241.3 mg 400 mg PO HS 03/01/25 07/12/25 magnesium) tablet quetiapine 50 mg tablet,extended 50 mg PO QAM 03/19/25 07/12/25 release 24 hr venlafaxine 150 mg 150 mg PO QAM 03/19/25 07/12/25 capsule,extended release 24 hr propranolol 120 mg capsule,24 120 mg PO HS 03/26/25 07/12/25 hr,extended release prazosin 5 mg capsule 5 mg PO HS 04/05/25 07/12/25 aspirin 81 mg capsule 81 mg PO QPM 05/03/25 07/12/25 divalproex 500 mg tablet,delayed 1,000 mg PO QAM 05/03/25 07/12/25 release duloxetine 60 mg capsule,delayed 60 mg PO QAM 05/03/25 07/12/25 release somatropin 5 mg/1.5 mL (3.3 mg/mL) 3 mg subcut QPM 05/29/25 07/12/25 subcutaneous pen injector (Norditropin FlexPro) tirzepatide 5 mg/0.5 mL 5 mg subcut WK 06/12/25 07/12/25 subcutaneous pen injector (Mounjaro) hydrocortisone 10 mg tablet 10 mg PO QPM 06/13/25 07/12/25 sumatriptan succinate 50 mg tablet 0 mg PO .COMPLEX PRN Migraine 06/23/25 07/12/25 Headache bumetanide 1 mg tablet 1 mg PO QAM 07/02/25 07/12/25 hydrocortisone 10 mg tablet 20 mg PO QAM 07/02/25 07/12/25 lisinopril 10 mg tablet 10 mg PO QAM 07/02/25 07/12/25 metformin 1,000 mg tablet 1,000 mg PO BID 07/02/25 07/12/25 mupirocin 2 % topical ointment 1 applic topical DAILY 07/02/25 07/12/25 testosterone 2 pump topical QPM 07/02/25 07/12/25 Previous Rx's Medication Instructions Recorded fluticasone propionate 50 1 spray intranasal HS PRN allergy 03/16/23 mcg/actuation nasal symptoms #16 grams spray,suspension (Flonase Allergy Relief) FreeStyle Rosalie 2 [place] (flash #1 ea 05/13/23 glucose scanning reader) blood sugar diagnostic (OneTouch #150 ea 11/22/23 Verio test strips) blood-glucose meter (OneTouch #1 ea 11/22/23 Verio Reflect Meter) insulin syringe-needle U-100 1 mL #300 ea 11/22/23 30 gauge x 1/2" (BD Insulin Syringe Ultra-Fine) lancets 33 gauge (OneTouch Delica #150 ea 11/22/23 Plus Lancet) ipratropium 0.5 mg-albuterol 3 mg 3 ml inhalation QID PRN wheezing 07/31/24 (2.5 mg base)/3 mL nebulization #90 mL soln nebulizers (Compact Compressor #1 ea 07/31/24 Nebulizer) pen needle, diabetic 32 gauge x #100 ea 10/23/24 5/32" (BD Vy 2nd Gen Pen Needle) vitamin B complex (Vitamins B 1 cap PO QAM #30 caps 10/26/24 Complex capsule) metoprolol succinate 25 mg 25 mg PO HS #90 tabs 11/30/24 tablet,extended release 24 hr lacosamide 150 mg tablet 150 mg PO BID #60 tabs 12/26/24 acetylcysteine 200 mg/mL (20 %) 2 ml inhalation BID PRN Chest 03/26/25 solution congestion #100 mL cholecalciferol (vitamin D3) 50 50 mcg PO QPM #90 caps 03/26/25 mcg (2,000 unit) capsule sodium chloride 7 % for 1 inh inhalation BID #240 mL 03/26/25 nebulization duloxetine 30 mg capsule,delayed 30 mg PO HS #30 caps 04/12/25 release FreeStyle Rosalie 2 Sensor (flash #6 ea 05/06/25 glucose sensor) levothyroxine 150 mcg tablet 150 mcg PO DAILYBB #30 tabs 05/06/25 (Synthroid) desmopressin 0.2 mg tablet 0.4 mg (2 x 0.2 mg) PO BID #120 05/16/25 tabs naloxone 4 mg/actuation nasal 1 spray intranasal ONCE PRN opioid 05/18/25 spray (Narcan) overdose #2 ea FreeStyle Rosalie 2 Plus Sensor #6 ea 06/04/25 (blood-glucose sensor) ascorbic acid (vitamin C) 250 mg 250 mg PO BID #60 tabs 06/13/25 tablet dutasteride 0.5 mg capsule 0.5 mg PO QAM #90 caps 06/19/25 zinc sulfate 50 mg zinc (220 mg) 200 mg (4 x 50 mg zinc (220 mg)) 06/27/25 capsule (Orazinc) PO QAM #0 caps albuterol sulfate 90 mcg/actuation 2 inh inhalation Q6H PRN shortness 07/01/25 aerosol inhaler (Ventolin HFA) of breath or wheezing #6.7 grams arformoterol 15 mcg/2 mL solution 2 ml inhalation BID #120 mL 07/01/25 for nebulization (Brovana) budesonide 0.5 mg/2 mL suspension 0.5 mg (2 mL) inhalation BID #60 mL 07/01/25 for nebulization insulin glargine 100 unit/mL (3 4 unit (0.04 mL) subcut HS #15 mL 07/01/25 mL) subcutaneous pen (Lantus Solostar U-100 Insulin) tiotropium bromide 2.5 2 puff inhalation DAILY #4 grams 07/01/25 mcg/actuation mist for inhalation (Spiriva Respimat) docusate sodium 100 mg capsule 100 mg PO BID 30 days #60 caps 07/04/25 ferrous sulfate 325 mg (65 mg 650 mg (2 x 325 mg (65 mg iron)) 07/04/25 iron) tablet PO QPM 30 days #0 tabs hydrocortisone 2.5 % topical cream 1 applic LA DAILY PRN hemorrhoids 07/04/25 with perineal applicator 14 days #30 grams (Proctosol HC) polyethylene glycol 3350 17 17 g PO BID 30 days #1,020 grams 07/04/25 gram/dose oral powder (Miralax) levetiracetam 1,000 mg tablet 1,000 mg PO Q12H #60 tabs 07/05/25 ondansetron 8 mg disintegrating 8 mg PO Q8H PRN nausea and 07/08/25 tablet vomiting #30 tabs famotidine 20 mg tablet 20 mg PO QAM #90 tabs 07/11/25 oxycodone-acetaminophen 5 mg-325 1 tab PO Q4H PRN severe complex 07/11/25 mg tablet (Percocet) multifocal pain 1 month #180 tabs rosuvastatin 20 mg tablet 20 mg PO QAM #90 tabs 07/11/25 Results & Data (ED) Vital Signs Vital Signs - 24 hr 07/12/25 11:19 07/12/25 11:30 07/12/25 11:30 Temperature 36.5 C 36.8 C Temperature Source Oral Oral Pulse Rate - Lying Pulse Rate - Sitting Pulse Rate - Standing Pulse Rate 74 Pulse Rate [Apical] 65 Pulse Rhythm [Apical] Pulse Strength [Apical] Respiratory Rate 18 18 Respiratory Effort / Characteristics Non-Labored Spontaneous Non-Labored Spontaneous Respiratory Depth Normal Normal Respiratory Pattern Regular Regular Blood Pressure - Lying Blood Pressure - Sitting Blood Pressure- Standing Blood Pressure 135/87 Blood Pressure [Right Arm] 137/65 Blood Pressure Mean 103 Blood Pressure Mean [Right Arm] 89 Blood Pressure Position [Right Arm] Pulse Oximetry 98 99 99 Oxygen Delivery Method Room Air Room Air Room Air Sepsis Recent Fever Within 48 Hours No Sepsis New/Unexplained Change in Mental Status N/A Sepsis Action Taken by Nursing No Action Required 07/12/25 12:00 07/12/25 12:28 07/12/25 13:00 Temperature 36.4 C L Temperature Source Oral Pulse Rate - Lying Pulse Rate - Sitting Pulse Rate - Standing Pulse Rate Pulse Rate [Apical] 67 66 69 Pulse Rhythm [Apical] Regular Regular Pulse Strength [Apical] Normal Normal Normal Respiratory Rate 18 18 18 Respiratory Effort / Characteristics Non-Labored Non-Labored Spontaneous Non-Labored Spontaneous Respiratory Depth Normal Normal Normal Respiratory Pattern Regular Regular Regular Blood Pressure - Lying Blood Pressure - Sitting Blood Pressure- Standing Blood Pressure Blood Pressure [Right Arm] 148/84 H 155/96 H 151/88 H Blood Pressure Mean Blood Pressure Mean [Right Arm] 105 115 109 Blood Pressure Position [Right Arm] Pulse Oximetry 97 95 Oxygen Delivery Method Room Air Room Air Room Air Sepsis Recent Fever Within 48 Hours Sepsis New/Unexplained Change in Mental Status Sepsis Action Taken by Nursing 07/12/25 13:02 07/12/25 14:00 07/12/25 14:29 Temperature 36.8 C Temperature Source Oral Pulse Rate - Lying 71 Pulse Rate - Sitting 81 Pulse Rate - Standing 76 Pulse Rate 66 Pulse Rate [Apical] 71 Pulse Rhythm [Apical] Regular Pulse Strength [Apical] Normal Respiratory Rate 18 Respiratory Effort / Characteristics Non-Labored Respiratory Depth Normal Respiratory Pattern Regular Blood Pressure - Lying 151/94 H Blood Pressure - Sitting 156/91 H Blood Pressure- Standing 147/84 H Blood Pressure Blood Pressure [Right Arm] 160/90 H Blood Pressure Mean Blood Pressure Mean [Right Arm] 113 Blood Pressure Position [Right Arm] Pulse Oximetry 96 Oxygen Delivery Method Room Air Sepsis Recent Fever Within 48 Hours Sepsis New/Unexplained Change in Mental Status Sepsis Action Taken by Nursing 07/12/25 14:45 07/12/25 15:00 07/12/25 16:00 Temperature Temperature Source Pulse Rate - Lying Pulse Rate - Sitting Pulse Rate - Standing Pulse Rate Pulse Rate [Apical] 69 81 74 Pulse Rhythm [Apical] Pulse Strength [Apical] Normal Respiratory Rate 17 20 20 Respiratory Effort / Characteristics Non-Labored Spontaneous Respiratory Depth Normal Respiratory Pattern Regular Blood Pressure - Lying Blood Pressure - Sitting Blood Pressure- Standing Blood Pressure Blood Pressure [Right Arm] 147/84 H 148/92 H 158/92 H Blood Pressure Mean Blood Pressure Mean [Right Arm] 105 110 114 Blood Pressure Position [Right Arm] Sitting Pulse Oximetry 98 98 98 Oxygen Delivery Method Room Air Room Air Room Air Sepsis Recent Fever Within 48 Hours Sepsis New/Unexplained Change in Mental Status Sepsis Action Taken by Nursing Laboratory Data 07/12/25 11:44 07/12/25 11:44 Lab Results 07/12/25 07/12/25 07/12/25 Range/Units 11:44 12:36 15:58 WBC 6.92 (4.8-10.8) K/ul RBC 3.75 L (4.70-6.10) M/uL Hgb 10.5 L (14.0-18.0) g/dl Hct 31.6 L (42.0-52.0) % MCV 84.3 (80.0-100.0) fL MCH 28.0 (25.0-34.0) pg MCHC 33.2 (32.0-36.0) g/dL RDW Std Deviation 44.5 (36.4-46.3) fL RDW Coeff of Yanira 14.6 H (11.5-14.5) % Plt Count 175 (130-400) K/uL MPV 8.9 L (9.4-12.4) fL Immature Gran % (Auto) 0.9 % Neut % (Auto) 70.0 % Lymph % (Auto) 21.2 % [place] % (Auto) 6.5 % Eos % (Auto) 1.0 % Baso % (Auto) 0.4 % Neut # (Auto) 4.84 (1.40-6.50) K/uL Lymph # (Auto) 1.47 (1.20-3.40) K/uL [place] # (Auto) 0.45 (0.11-0.59) K/uL Eos # (Auto) 0.07 (0.00-0.50) K/uL Baso # (Auto) 0.03 (0.00-0.20) K/uL Immature Gran # (Auto) 0.06 (0.01-0.20) K/uL PT Cancelled 11.5 INR Cancelled 1.1 Sodium 140 (136-145) mmol/L Potassium 3.9 (3.5-5.1) mmol/L Chloride 103 (98-107) mmol/L Carbon Dioxide 27 (21-32) mmol/L Anion Gap 10 (3-11) BUN 6 (6-23) mg/dl Creatinine 0.79 (0.6-1.4) mg/dl Est Cr Clr Drug Dosing 127.0 ml/min eGFR 103.62 BUN/Creatinine Ratio 7.6 L (10-20) Glucose 115 H (70-99(Fasting)) mg/dl Lactate 2.6 H* 3.0 H* (0.4-2.0) mmol/L Calcium 9.1 (8.6-10.3) mg/dl Total Bilirubin 0.4 (0.2-1.0) mg/dl AST 29 (13-39) U/L ALT 22 (7-52) U/L Alkaline Phosphatase 52 (34-104) U/L Troponin I High Sens 3.8 (0-20) pg/ml Total Protein 6.2 (6.0-8.3) gm/dl Albumin 3.9 (3.4-5.0) gm/dl Globulin 2.3 L (2.5-4.0) gm/dl Albumin/Globulin Ratio 1.7 (0.9-2) Lipase 52 (11-82) U/L Urine Color Urine Appearance (Clear) Urine pH (4.5-7.5) Ur Specific [place] (1.000-1.030) Urine Protein (Negative) Urine Glucose (UA) (Negative) Urine Ketones (Negative) Urine Blood (Negative) Urine Nitrite (Negative) Urine Bilirubin (Negative) Urine Urobilinogen (Negative) Ur Leukocyte Esterase (Negative) Urine WBC (Auto) (0-5) /hpf Urine RBC (Auto) (0-2) /hpf U Hyaline Cast (Auto) (0-2) /lpf U Epithel Cells (Auto) (0-2) /hpf Urine Bacteria (Auto) (None Seen) Urine Comment Blood Type A Negative Antibody Screen NEGATIVE 07/12/25 Range/Units Unknown WBC (4.8-10.8) K/ul RBC (4.70-6.10) M/uL Hgb (14.0-18.0) g/dl Hct (42.0-52.0) % MCV (80.0-100.0) fL MCH (25.0-34.0) pg MCHC (32.0-36.0) g/dL RDW Std Deviation (36.4-46.3) fL RDW Coeff of Yanira (11.5-14.5) % Plt Count (130-400) K/uL MPV (9.4-12.4) fL Immature Gran % (Auto) % Neut % (Auto) % Lymph % (Auto) % [place] % (Auto) % Eos % (Auto) % Baso % (Auto) % Neut # (Auto) (1.40-6.50) K/uL Lymph # (Auto) (1.20-3.40) K/uL [place] # (Auto) (0.11-0.59) K/uL Eos # (Auto) (0.00-0.50) K/uL Baso # (Auto) (0.00-0.20) K/uL Immature Gran # (Auto) (0.01-0.20) K/uL PT INR Sodium (136-145) mmol/L Potassium (3.5-5.1) mmol/L Chloride (98-107) mmol/L Carbon Dioxide (21-32) mmol/L Anion Gap (3-11) BUN (6-23) mg/dl Creatinine (0.6-1.4) mg/dl Est Cr Clr Drug Dosing ml/min eGFR BUN/Creatinine Ratio (10-20) Glucose (70-99(Fasting)) mg/dl Lactate (0.4-2.0) mmol/L Calcium (8.6-10.3) mg/dl Total Bilirubin (0.2-1.0) mg/dl AST (13-39) U/L ALT (7-52) U/L Alkaline Phosphatase (34-104) U/L Troponin I High Sens (0-20) pg/ml Total Protein (6.0-8.3) gm/dl Albumin (3.4-5.0) gm/dl Globulin (2.5-4.0) gm/dl Albumin/Globulin Ratio (0.9-2) Lipase (11-82) U/L Urine Color Dark Yellow Urine Appearance Clear (Clear) Urine pH 5.0 (4.5-7.5) Ur Specific [place] 1.024 (1.000-1.030) Urine Protein Trace H (Negative) Urine Glucose (UA) Negative (Negative) Urine Ketones Trace H (Negative) Urine Blood Negative (Negative) Urine Nitrite Negative (Negative) Urine Bilirubin Negative (Negative) Urine Urobilinogen Negative (Negative) Ur Leukocyte Esterase Negative (Negative) Urine WBC (Auto) 0-5 (0-5) /hpf Urine RBC (Auto) 0-2 (0-2) /hpf U Hyaline Cast (Auto) 3-5 H (0-2) /lpf U Epithel Cells (Auto) 3-5 H (0-2) /hpf Urine Bacteria (Auto) None Seen (None Seen) Urine Comment Blood Type Antibody Screen Administered Medications Sodium Chloride (Nss) 1,000 mls @ 999 mls/hr IV .Q1H1M ONE Stop: 07/12/25 17:13 Last Admin: 07/12/25 16:20 Dose: 999 mls/hr Documented By: QGV Discontinued Medications Sodium Chloride (Nss) 1,000 mls @ 999 mls/hr IV .Q1H1M ONE Stop: 07/12/25 12:35 Last Infusion: 07/12/25 13:39 Dose: Infused Documented By: Admin: 07/12/25 12:29 Dose: 999 mls/hr Documented By: SUNSHINE Ondansetron HCl (Ondansetron Inj 2 Mg/Ml 2 Ml Vial) 4 mg IV NOW STA Stop: 07/12/25 11:37 Last Admin: 07/12/25 12:30 Dose: 4 mg Documented By: SUNSHINE Imaging Data Radiologist's Impression: Head CT 07/12/25 11:35 CT SCAN OF THE BRAIN WITHOUT IV CONTRAST CLINICAL HISTORY: Fall. COMPARISON STUDY: CT of the brain dated 07/02/2025 TECHNIQUE: Unenhanced axial CT scan of the brain is performed from the vertex to the skull base. Images are reviewed in the axial, sagittal, and coronal planes. A dose lowering technique was utilized adhering to the principles of ALARA. CT DOSE: 625.8 mGy.cm FINDINGS: Brain parenchyma: The brain parenchyma is normal in appearance. There is no hemorrhage, mass effect, or evidence of acute territorial ischemia by CT criteria. Paul-white matter differentiation is preserved. No extra-axial fluid collection is seen. Ventricles, sulci, cisterns: Normal in configuration. 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 Intracranial vasculature: There is atherosclerotic calcification of the cavernous carotid arteries. Calvarium: Unremarkable. Sinuses and mastoids: The visualized paranasal sinuses are clear. The mastoid air cells are well pneumatized. Orbits: The bony orbits are grossly intact. There are bilateral ocular lens implants. IMPRESSION: There is no hemorrhage, mass effect, or evidence of acute territorial ischemia by CT criteria. ACT 112: Negative or not required by law. Electronically signed by: Galindo Mejia M.D. 07/12/2025 12:19 PM Discharge Plan Visit Data Chief Complaint: Illness Stated Complaint: Weakness ED Provider: Homa Kelley Discharge Problem: Generalized weakness, Dizziness, Acute dehydration, Elevated lactic acid level Patient Disposition: Home - Self-Care Condition: Fair Discharge Instructions Krames/Other Patient Handouts: ED Dizziness, Uncertain Cause Activity Restrictions/Additional Instructions: Your laboratory workup in the emergency department did not show any acute abnormality other than a slightly elevated lactic acid level, which can be seen in setting of dehydration. Your urine does show you are slightly dehydrated as you had slightly elevated ketone levels. Your CT scan of your head did not show any acute abnormality. Recommend staying well-hydrated the next 2 days. Please follow-up closely with your primary care provider. Return to the emergency department if you have any further episodes of significant dizziness or lightheadedness, passing out, chest pain or shortness of breath, vomiting or inability to tolerate oral intake, or any new or worsening symptoms. Forms Stand Alone Forms: [facility], Important Visit Information Prescriptions Prescriptions: No Action clopidogrel [Plavix] 75 mg tablet 75 mg PO QPM fluticasone propionate [Flonase Allergy Relief] 50 mcg/actuation spray,suspension 1 spray intranasal HS PRN (Reason: allergy symptoms) Qty: 16 0RF Rx Instructions: administer into each nostril (DME) insulin syringe-needle U-100 [BD Insulin Syringe Ultra-Fine] 1 mL 30 gauge x 1/2" syringe See Rx Instructions .Route Qty: 300 1RF Rx Instructions: use tid (DME) OneTouch Verio test strips Strip See Rx Instructions .MEDSUPPLY Qty: 150 5RF Rx Instructions: check blood sugars 4 times a day (DME) blood-glucose meter [OneTouch Verio Reflect Meter] Misc See Rx Instructions miscellaneous .MEDSUPPLY Qty: 1 0RF Rx Instructions: As directed (DME) lancets [OneTouch Delica Plus Lancet] 33 gauge misc See Rx Instructions .MEDSUPPLY Qty: 150 5RF Rx Instructions: As directed check blood sugars 4 times a day (DME) pen needle, diabetic [BD Vy 2nd Gen Pen Needle] 32 gauge x 5/32" needle See Rx Instructions miscellaneous .MEDSUPPLY Qty: 100 3RF Rx Instructions: inject with a new pen needle daily lorazepam 0.5 mg tablet 0.5 mg PO DAILY PRN (Reason: Seizure Activity) metoprolol succinate 25 mg tablet extended release 24 hr 25 mg PO HS Qty: 90 3RF lacosamide 150 mg tablet 150 mg PO BID Qty: 60 5RF (DME) Oxygen Home Liters Per Minute See Rx Instructions .Route Rx Instructions: 4 L o2 via NC As directed, cholecalciferol (vitamin D3) 50 mcg (2,000 unit) capsule 50 mcg PO QPM Qty: 90 1RF levothyroxine [Synthroid] 150 mcg tablet 150 mcg PO DAILYBB Qty: 30 5RF (DME) FreeStyle Rosalie 2 Sensor Kit See Rx Instructions .Route Qty: 6 3RF Rx Instructions: Change every 14 days desmopressin 0.2 mg tablet 0.4 mg PO BID Qty: 120 5RF (DME) FreeStyle Rosalie 2 Plus Sensor Device See Rx Instructions .Route Qty: 6 3RF Rx Instructions: change every 15 days dutasteride 0.5 mg capsule 0.5 mg PO QAM Qty: 90 2RF Rx Instructions: TAKE 1 CAPSULE BY MOUTH DAILY IN THE MORNING levetiracetam 1,000 mg tablet 1,000 mg PO Q12H Qty: 60 6RF ondansetron 8 mg tablet,disintegrating 8 mg PO Q8H PRN (Reason: nausea and vomiting) Qty: 30 0RF famotidine 20 mg tablet 20 mg PO QAM Qty: 90 1RF rosuvastatin 20 mg tablet 20 mg PO QAM Qty: 90 2RF (DME) FreeStyle Rosalie 2 [place] Misc See Rx Instructions .Route Qty: 1 0RF Rx Instructions: Check blood glucose before each meal mirtazapine [Remeron] 30 mg tablet 30 mg PO HS prazosin 5 mg capsule 5 mg PO HS (DME) nebulizers [Compact Compressor Nebulizer] Misc See Rx Instructions .Route Qty: 1 0RF Rx Instructions: One compact compressor nebulizer. Use as directed. Please include tubing, mouth piece and cup. ipratropium-albuterol 0.5 mg-3 mg(2.5 mg base)/3 mL solution for nebulization 3 ml inhalation QID PRN (Reason: wheezing) Qty: 90 0RF insulin glargine [Lantus Solostar U-100 Insulin] 100 unit/mL (3 mL) insulin pen 4 unit SUBCUT HS Qty: 15 0RF Hold Instructions: Has been on hold for a few weeks per pt albuterol sulfate [Ventolin HFA] 90 mcg/actuation HFA aerosol inhaler 2 inh inhalation Q6H PRN (Reason: shortness of breath or wheezing) Qty: 6.7 2RF arformoterol [Brovana] 15 mcg/2 mL solution for nebulization 2 ml inhalation BID Qty: 120 7RF budesonide 0.5 mg/2 mL suspension for nebulization 0.5 mg inhalation BID Qty: 60 7RF Spiriva Respimat 2.5 mcg/actuation mist 2 puff inhalation DAILY Qty: 4 7RF ascorbic acid (vitamin C) 250 mg tablet 250 mg PO BID Qty: 60 2RF hydrocortisone 10 mg tablet 10 mg PO QPM Rx Instructions: 2 tabs (20mg) in AM, 1 tab (10mg) in PM double dose in times of stress magnesium oxide 400 mg (241.3 mg magnesium) tablet 400 mg PO HS propranolol 120 mg capsule,extended release 24hr 120 mg PO HS sodium chloride 7 % solution for nebulization 1 inh inhalation BID Qty: 240 3RF acetylcysteine 200 mg/mL (20 %) solution 2 ml inhalation BID PRN (Reason: Chest congestion) Qty: 100 6RF oxycodone-acetaminophen [Percocet] 5-325 mg tablet 1 tab PO Q4H PRN (Reason: severe complex multifocal pain) 30 Days Qty: 180 0RF Baqsimi 3 mg/actuation spray,non-aerosol 3 mg intranasal ONCE PRN (Reason: Severe Hypoglycemia) Rx Instructions: for treatment of severe hypoglycemia, second dose may be given if patient does not respond after 15 minutes . Per caregiver, pt has never has to use this medication. vitamin B complex [Vitamins B Complex] Capsule 1 cap PO QAM Qty: 30 0RF venlafaxine 150 mg capsule,extended release 24hr 150 mg PO QAM quetiapine 50 mg tablet extended release 24 hr 50 mg PO QAM duloxetine 30 mg capsule,delayed release(DR/EC) 30 mg PO HS Qty: 30 0RF Norditropin FlexPro 5 mg/1.5 mL (3.3 mg/mL) pen injector 3 mg SQ QPM sumatriptan succinate 50 mg Tablet 0 mg PO .COMPLEX PRN (Reason: Migraine Headache) Rx Instructions: UNABLE TO VERIFY STRENGTH, PT UNSURE. take 1 tab at onset of headache; if no relief may repeat 1 tab after at least 2 hrs; max = 4 tabs/24 hr aripiprazole 5 mg tablet 5 mg PO QAM divalproex 500 mg tablet,delayed release (DR/EC) 1,000 mg PO QAM duloxetine 60 mg capsule,delayed release(DR/EC) 60 mg PO QAM aspirin 81 mg capsule 81 mg PO QPM Hold Instructions: Resume on 06/12/25. Hold OFF aspirin while you are taking linezolid 600mg PO bid (05/31/2025 pm through 06/11/2025 pm) as linezolid can lower your platelet count. Restart aspirin on 06/12/2025 am. naloxone [Narcan] 4 mg/actuation spray,non-aerosol 1 spray intranasal ONCE PRN (Reason: opioid overdose) Qty: 2 2RF Mounjaro 5 mg/0.5 mL pen injector 5 mg SUBCUT WK Rx Instructions: sundays zinc sulfate [Orazinc] 50 mg zinc (220 mg) Capsule 200 mg PO QAM Qty: 0 0RF Rx Instructions: buy over the counter, reduce to 1 cap after 2-4 weeks lisinopril 10 mg tablet 10 mg PO QAM bumetanide 1 mg tablet 1 mg PO QAM mupirocin 2 % ointment 1 applic TOPICAL DAILY hydrocortisone 10 mg tablet 20 mg PO QAM Rx Instructions: 2 tabs (20mg) in AM, 1 tab (10mg) in PM double dose in times of stress testosterone 20.25 mg/1.25 gram (1.62 %) gel in metered-dose pump 2 pump topical QPM metformin 1,000 mg tablet 1,000 mg PO BID docusate sodium 100 mg Capsule 100 mg PO BID 30 Days Qty: 60 0RF hydrocortisone [Proctosol HC] 2.5 % cream with perineal applicator 1 applic LA DAILY PRN (Reason: hemorrhoids) 14 Days Qty: 30 0RF ferrous sulfate 325 mg (65 mg iron) tablet 650 mg PO QPM 30 Days Qty: 0 0RF polyethylene glycol 3350 [Miralax] 17 gram/dose powder 17 g PO BID 30 Days Qty: 1020 0RF Referrals Referrals: Pro,Larry Crisostomo MD [Primary Care Provider] -
[2025-07-12 12:09] LABS: Appearance Urine Clear (Clear); Bacteria Urine Automated None Seen (None Seen); Glucose Urine UA Negative (Negative); RBC Urine Automated 0-2 /hpf (0-2); WBC Urine Automated 0-5 /hpf (0-5)
[2025-07-12 12:09] LABS: Hematocrit (blood only) 31.6 % (42.0-52.0); Hemoglobin 10.5 g/dl (14.0-18.0); Immature Granulocytes # (auto) 0.06 K/uL (0.01-0.20); Immature Granulocytes % (auto) 0.9 %; Mean Corpuscular Hemoglobin 28.0 pg (25.0-34.0); Mean Corpuscular Volume 84.3 fL (80.0-100.0); Platelet Count 175 K/uL (130-400); RDW Standard Deviation 44.5 fL (36.4-46.3); Red Blood Count 3.75 M/uL (4.70-6.10); White Blood Count 6.92 K/ul (4.8-10.8)
--- NOTE | 2025-07-12 12:21 | CT Scan Report ---
CT SCAN OF THE BRAIN WITHOUT IV CONTRAST CLINICAL HISTORY: Fall. COMPARISON STUDY: CT of the brain dated 07/02/2025 TECHNIQUE: Unenhanced axial CT scan of the brain is performed from the vertex to the skull base. Imag es are reviewed in the axial, sagittal, and coronal planes. A dose lowering technique was utilized a dhering to the principles of ALARA. CT DOSE: 625.8 mGy.cm FINDINGS: Brain parenchyma: The brain parenchyma is normal in appearance. There is no hemorrhage, mass effect, or evidence of acute territorial ischemia by CT criteria. Paul-white matter differentiation is preser leonardo. No extra-axial fluid collection is seen. Ventricles, sulci, cisterns: Normal in configuration. 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 Intracranial vasculature: There is atherosclerotic calcification of the cavernous carotid arteries. Calvarium: Unremarkable. Sinuses and mastoids: The visualized paranasal sinuses are clear. The mastoid air cells are well pneu matized. Orbits: The bony orbits are grossly intact. There are bilateral ocular lens implants. IMPRESSION: There is no hemorrhage, mass effect, or evidence of acute territorial ischemia by CT du [place]. ACT 112: Negative or not required by law. Electronically signed by: Galindo Mejia M.D. 07/12/2025 12:19 PM
[2025-07-12 12:29] LABS: Alanine Aminotransferase 22.0 U/L (7-52); Albumin Globulin Ratio 1.7 (0.9-2); Alkaline Phosphatase 52.0 U/L (34-104); Anion Gap 10.0 (3-11); Bilirubin,Total 0.4 mg/dl (0.2-1.0); Blood Urea Nitrogen 6.0 mg/dl (6-23); Calcium 9.1 mg/dl (8.6-10.3); Carbon Dioxide 27.0 mmol/L (21-32); Chloride 103.0 mmol/L (98-107); Creatinine Clr Calc Pharmacy 127.0 ml/min; Globulin 2.3 gm/dl (2.5-4.0); Glucose 115.0 mg/dl (70-99(Fasting)); Lipase 52.0 U/L (11-82); Potassium 3.9 mmol/L (3.5-5.1); Sodium 140.0 mmol/L (136-145); Total Protein 6.2 gm/dl (6.0-8.3)
[2025-07-12] MEDS: SODIUM CHLORIDE 0.9% 1,000 ML IV ONE ×3 (12:29→18:18)
[2025-07-12] MEDS: ONDANSETRON INJ 2 MG/ML 2 ML VIAL IV STA (12:30)
[2025-07-12 13:34] LABS: INR 1.1 (0.9-1.1); Prothrombin Time 11.5 Seconds (9.0-12.0)
--- NOTE | 2025-07-12 14:24 | Electrocardiogram Report ---
Test Reason : Blood Pressure : */* mmHG Vent. Rate : 69 BPM Atrial Rate : 69 BPM P-R Int : 162 ms QRS Dur : 88 ms QT Int : 438 ms P-R-T Axes : -12 -13 -10 degrees QTcB Int : 469 ms Normal sinus rhythm Inferior infarct (cited on or before 02-Jul-2025) Abnormal ECG When compared with ECG of 02-Jul-2025 10:12, No significant change was found Confirmed by Bo Edwards ([id number]) on 07/12/2025 2:24:20 PM Referred By: Confirmed By: Bo Edwards
--- NOTE | 2025-07-12 16:42 | XRay Report ---
Chest radiograph, one view History: Chest pain Comparison: None Findings: Single AP view of the chest performed. No focal consolidation or pleural effusion. No pneumothorax. The cardiomediastinal silhouette is within normal limits. Normal pulmonary vascularity. No evidence for lymphadenopathy. No visualized bony or soft tissue abnormality. Loop recorder device over the left chest. Impression: Normal chest radiograph Electronically signed by Glynn Nguyen 07-12-2025 4:42 PM
[2025-07-12 17:16] LABS: Base Excess VBG -2.2 mEq/L; HCO3 VBG 24 mmol/L; Oxygen Saturation VBG < 60.0 %; PCO2 VBG 47 mmHg (38-50); PO2 VBG 26 mmHg; pH VBG 7.32 (7.36-7.41)
--- NOTE | 2025-07-12 18:40 | History & Physical Report ---
Date of Service July 12, 2025 Assessment & Plan (1) Elevated lactic acid level: (2) Acute dehydration: (3) Nausea & vomiting: (4) Diabetes: Plan 55-year-old man with DM type 2, HTN, adrenal insufficiency, A-fib, CKD, COPD, PTSD, bipolar 1 disorder, ulcerative colitis as well as additional medical comorbidities presenting with persistent nausea / vomiting and nonbloody diarrhea for the past week. He has some generalized central abdominal pain but exam is benign. Lactate elevated to 2.6-->3.0 did not go down with 1 liter of fluids #N/V/D abdominal pain - no recent mounjaro, does have some chronic nausea. Ddx acute gastroenteritis, C. diff, flare of diabetic gastroparesis. Defer on abdominal imaging for now -IV fluids -IV ondansetron 4 mg q6h prn -check stool C. diff and biofire -hold stool softeners and laxatives -stop metformin -prn loperamide -history of UC but this has been nonbloody, seems less likely flare of UC #Elevated lactate - I reviewed old labs and lactate has been elevated mostly between 2.5-5.0 consistently since 2023 with few exceptions. Sometimes elevated well into hospital stays. -repeat level pending -stop metformin -check B1, empiric thiamine replacement after level is drawn -additional liter of IV fluid #Syncopal events - seem to be mixture of orthostatic events and also has had vasovagal events (while sitting on toilet) -monitor tele -check orthostatic VS. Many potential med culprits for this including B- blockers, dutasteride #T2DM H/o DMT2- metformin stopped, mounjaro held -continue glargine 4u HS and prn/premeal aspart. Has had hypoglycemias #Psychogenic nonepileptic seizures- and remote history of epileptic seizures - Keppra, Vimpat, divalproex - continue -talk with him about stopping one of these. I previously discussed with Dr. Villa - he is fine with trial of stopping AEDs #Adrenal insufficiency- Hydrocortisone, desmopressin - continue #COPD- Hypertonic nebs, formoterol, budesonide, DuoNebs, albuterol - continue, not in exacerbation #Afib, HTN- Metoprolol, DOAC #HLD- Crestor - continue #Hypothyroidism- Levothyroxine - continue #Anxiety/depression/bipolar 1/PTSD- [employer] ; venlafaxine, Seroquel, prazosin, Remeron, duloxetine, Abilify - continue #Tremor- Propranolol - continue #Chronic back pain- Oxycodone, duloxetine; PDMP independently reviewed - continue Dysgeusia - zinc supplement did not help. check B1. B12 recently ok. Could be medication side effect Recent bleeding anal fissure - resolved MRSA bacteremia mid May - did not get IV abx very long. Follow up blood cultures have fortunately been negative, except for a skin contaminant. History of Present Illness Primary Care Provider: Larry Amaral MD 55-year-old man with DM type 2, HTN, adrenal insufficiency, A-fib, CKD, COPD, PTSD, bipolar 1 disorder, ulcerative colitis, tremor, depression and anxiety, hypothyroidism as well as additional medical comorbidities presenting with persistent nausea / vomiting and diarrhea for the past week. I reviewed the charts from last two recent admissions in [facility]. He was here with hypovolemia and QUENTIN leading to a syncopal episode and bumex was changed to PRN. Most recently he had an admission for hematochezia and was found to have a bleeding anal tear. He was transfused. Once discharged he started to have ongoing nausea/vomiting, vomiting repetitively soon after meals. He does have chronic nausea and has had flares of vomiting before. He has had green nonbloody diarrhea. He has mid-abdominal pain that is diffuse, not relieved by vomiting. No fever/chills. Has not taken mounjaro in at least a few weeks. Metformin reduced to 500 mg bid in primary care recently. No sick contacts. Feeling weak and dehydrated so came to ED. Rectal bleeding has stopped. He continues to have syncopal episodes - occurs with standing or sitting, not lying down. He sometimes has vertigo when lying down which is different. He hasn't had opioids for a week, just filled Rx, but prior to that wasn't taking more than once a day so should not be having withdrawal symptoms. He's not been having trouble with seizures recently. Allergies Allergy/AdvReac Type Severity Reaction Status Date / Time clindamycin Allergy Intermediate SWELLING Verified 07/12/25 10:33 Iodinated Contrast Media Allergy Intermediate face/eye Verified 07/12/25 10:33 swelling Quinolones Allergy Intermediate HIVES Verified 07/12/25 10:33 tomato Allergy Intermediate swelling Verified 07/12/25 10:33 Home Medications Medication Instructions Recorded Confirmed Type mirtazapine 30 mg tablet (Remeron) 30 mg PO HS 06/23/22 07/12/25 History fluticasone propionate 50 1 spray intranasal HS PRN allergy 03/16/23 07/12/25 Rx mcg/actuation nasal symptoms #16 grams spray,suspension (Flonase Allergy Relief) FreeStyle Rosalie 2 [place] (flash #1 ea 05/13/23 07/12/25 Rx glucose scanning reader) blood sugar diagnostic (GadgetATMTouch #150 ea 11/22/23 07/12/25 Rx Verio test strips) blood-glucose meter (GadgetATMTouch #1 ea 11/22/23 07/12/25 Rx Verio Reflect Meter) insulin syringe-needle U-100 1 mL #300 ea 11/22/23 07/12/25 Rx 30 gauge x 1/2" (BD Insulin Syringe Ultra-Fine) lancets 33 gauge (GadgetATMTouch Delica #150 ea 11/22/23 07/12/25 Rx Plus Lancet) glucagon 3 mg/actuation nasal 3 mg intranasal ONCE PRN Severe 04/06/24 07/12/25 History spray (Baqsimi) Hypoglycemia aripiprazole 5 mg tablet 5 mg PO QAM 05/29/24 07/12/25 History ipratropium 0.5 mg-albuterol 3 mg 3 ml inhalation QID PRN wheezing 07/31/24 07/12/25 Rx (2.5 mg base)/3 mL nebulization #90 mL soln nebulizers (Compact Compressor #1 ea 07/31/24 07/12/25 Rx Nebulizer) pen needle, diabetic 32 gauge x #100 ea 10/23/24 07/12/25 Rx 5/32" (BD Vy 2nd Gen Pen Needle) vitamin B complex (Vitamins B 1 cap PO QAM #30 caps 10/26/24 07/12/25 Rx Complex capsule) lorazepam 0.5 mg tablet 0.5 mg PO DAILY PRN Seizure 11/23/24 07/12/25 History Activity metoprolol succinate 25 mg 25 mg PO HS #90 tabs 11/30/24 07/12/25 Rx tablet,extended release 24 hr clopidogrel 75 mg tablet (Plavix) 75 mg PO QPM 12/03/24 07/12/25 History lacosamide 150 mg tablet 150 mg PO BID #60 tabs 12/26/24 07/12/25 Rx Oxygen Home 01/30/25 07/12/25 History magnesium oxide 400 mg (241.3 mg 400 mg PO HS 03/01/25 07/12/25 History magnesium) tablet quetiapine 50 mg tablet,extended 50 mg PO QAM 03/19/25 07/12/25 History release 24 hr venlafaxine 150 mg 150 mg PO QAM 03/19/25 07/12/25 History capsule,extended release 24 hr acetylcysteine 200 mg/mL (20 %) 2 ml inhalation BID PRN Chest 03/26/25 07/12/25 Rx solution congestion #100 mL cholecalciferol (vitamin D3) 50 50 mcg PO QPM #90 caps 03/26/25 07/12/25 Rx mcg (2,000 unit) capsule propranolol 120 mg capsule,24 120 mg PO HS 03/26/25 07/12/25 History hr,extended release sodium chloride 7 % for 1 inh inhalation BID #240 mL 03/26/25 07/12/25 Rx nebulization prazosin 5 mg capsule 5 mg PO HS 04/05/25 07/12/25 History duloxetine 30 mg capsule,delayed 30 mg PO HS #30 caps 04/12/25 07/12/25 Rx release aspirin 81 mg capsule 81 mg PO QPM 05/03/25 07/12/25 History divalproex 500 mg tablet,delayed 1,000 mg PO QAM 05/03/25 07/12/25 History release duloxetine 60 mg capsule,delayed 60 mg PO QAM 05/03/25 07/12/25 History release FreeStyle Rosalie 2 Sensor (flash #6 ea 05/06/25 07/12/25 Rx glucose sensor) levothyroxine 150 mcg tablet 150 mcg PO DAILYBB #30 tabs 05/06/25 07/12/25 Rx (Synthroid) desmopressin 0.2 mg tablet 0.4 mg (2 x 0.2 mg) PO BID #120 05/16/25 07/12/25 Rx tabs naloxone 4 mg/actuation nasal 1 spray intranasal ONCE PRN opioid 05/18/25 07/12/25 Rx spray (Narcan) overdose #2 ea somatropin 5 mg/1.5 mL (3.3 mg/mL) 3 mg subcut QPM 05/29/25 07/12/25 History subcutaneous pen injector (Norditropin FlexPro) FreeStyle Rosalie 2 Plus Sensor #6 ea 06/04/25 07/12/25 Rx (blood-glucose sensor) tirzepatide 5 mg/0.5 mL 5 mg subcut WK 06/12/25 07/12/25 History subcutaneous pen injector (Mounjaro) ascorbic acid (vitamin C) 250 mg 250 mg PO BID #60 tabs 06/13/25 07/12/25 Rx tablet hydrocortisone 10 mg tablet 10 mg PO QPM 06/13/25 07/12/25 History dutasteride 0.5 mg capsule 0.5 mg PO QAM #90 caps 06/19/25 07/12/25 Rx sumatriptan succinate 50 mg tablet 0 mg PO .COMPLEX PRN Migraine 06/23/25 07/12/25 History Headache zinc sulfate 50 mg zinc (220 mg) 200 mg (4 x 50 mg zinc (220 mg)) 06/27/25 07/12/25 Rx capsule (Orazinc) PO QAM #0 caps albuterol sulfate 90 mcg/actuation 2 inh inhalation Q6H PRN shortness 07/01/25 07/12/25 Rx aerosol inhaler (Ventolin HFA) of breath or wheezing #6.7 grams arformoterol 15 mcg/2 mL solution 2 ml inhalation BID #120 mL 07/01/25 07/12/25 Rx for nebulization (Brovana) budesonide 0.5 mg/2 mL suspension 0.5 mg (2 mL) inhalation BID #60 mL 07/01/25 07/12/25 Rx for nebulization insulin glargine 100 unit/mL (3 4 unit (0.04 mL) subcut HS #15 mL 07/01/25 07/12/25 Rx mL) subcutaneous pen (Lantus Solostar U-100 Insulin) tiotropium bromide 2.5 2 puff inhalation DAILY #4 grams 07/01/25 07/12/25 Rx mcg/actuation mist for inhalation (Spiriva Respimat) bumetanide 1 mg tablet 1 mg PO QAM 07/02/25 07/12/25 History hydrocortisone 10 mg tablet 20 mg PO QAM 07/02/25 07/12/25 History lisinopril 10 mg tablet 10 mg PO QAM 07/02/25 07/12/25 History metformin 1,000 mg tablet 1,000 mg PO BID 07/02/25 07/12/25 History mupirocin 2 % topical ointment 1 applic topical DAILY 07/02/25 07/12/25 History testosterone 2 pump topical QPM 07/02/25 07/12/25 History docusate sodium 100 mg capsule 100 mg PO BID 30 days #60 caps 07/04/25 07/12/25 Rx ferrous sulfate 325 mg (65 mg 650 mg (2 x 325 mg (65 mg iron)) 07/04/25 07/12/25 Rx iron) tablet PO QPM 30 days #0 tabs hydrocortisone 2.5 % topical cream 1 applic MD DAILY PRN hemorrhoids 07/04/25 07/12/25 Rx with perineal applicator 14 days #30 grams (Proctosol HC) polyethylene glycol 3350 17 17 g PO BID 30 days #1,020 grams 07/04/25 07/12/25 Rx gram/dose oral powder (Miralax) levetiracetam 1,000 mg tablet 1,000 mg PO Q12H #60 tabs 07/05/25 07/12/25 Rx ondansetron 8 mg disintegrating 8 mg PO Q8H PRN nausea and 07/08/25 07/12/25 Rx tablet vomiting #30 tabs famotidine 20 mg tablet 20 mg PO QAM #90 tabs 07/11/25 07/12/25 Rx oxycodone-acetaminophen 5 mg-325 1 tab PO Q4H PRN severe complex 07/11/25 07/12/25 Rx mg tablet (Percocet) multifocal pain 1 month #180 tabs rosuvastatin 20 mg tablet 20 mg PO QAM #90 tabs 07/11/25 07/12/25 Rx Past Med/Surg History Problem List Elevated lactic acid level (Acute) Acute dehydration (Acute) Dizziness (Acute) Generalized weakness (Acute) Palliative care by specialist (Chronic) DO NOT DELETE. FOLLOWED BY P[facility] FOR COMPELX SEVERE CHRONIC PAIN SYNDROME Muscular deconditioning Hyponatremia Lumbosacral radiculopathy Nausea & vomiting (Acute) Dizziness (Acute) Acute hyponatremia (Acute) QUENTIN (acute kidney injury) (Acute) Abrasion of knee (Acute) Chronic anemia (Acute) Hypomagnesemia (Acute) Hyperphosphatemia (Acute) Acidosis, lactic (Acute) Acute encephalopathy (Acute) Vision loss, left eye Hypopituitarism Counseling regarding advanced directives and goals of care Psychogenic nonepileptic seizure Asthma COPD (chronic obstructive pulmonary disease) Intractable back pain (Acute) Numbness of right foot Advanced care planning/counseling discussion Bilateral nephrolithiasis (Chronic) Elevated lactic acid level Compartment syndrome of lower extremity Ambulatory dysfunction (Acute) Arthralgia Venous stasis ulcers (Acute) Chronic venous insufficiency (Chronic) Presbyopia of both eyes Epiretinal membrane (ERM) of left eye Ocular hypertension Secondary cataract of left eye with vision obscured Combined form of senile cataract of right eye Abnormal chest CT Demyelinating disease Esophageal dysphagia 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 Current use of proton pump inhibitor Chronic migraine without aura or status migrainosus Anemia (Acute) Ulcerative colitis Mixed hyperlipidemia Lumbar stenosis with neurogenic claudication Arachnoid cyst of posterior cranial fossa Pseudoseizures Idiopathic polyneuropathy Essential tremor Mitral regurgitation Depression Anxiety (Chronic) Medical History Blood loss anemia Hematochezia Therapeutic opioid-induced constipation (OIC) Bipolar 1 disorder Diabetes Back pain at L4-L5 level Staphylococcus aureus bacteremia with sepsis Sepsis due to cellulitis Hypokalemia Abrasion of knee Frequent falls Generalized weakness Hypomagnesemia Sepsis Fever of unknown origin Generalized pain Contusion of face Hypomagnesemia Opiate dependence Hypotension Toxic metabolic encephalopathy Hyperphosphatemia Hypomagnesemia Hypocalcemia Acute hyponatremia Dizziness QUENTIN (acute kidney injury) CHI (closed head injury) Acute flank pain Kidney stones currently causing severe pain History of pneumonia (03/2025) states has been admitted for total of 36 days ytd at [facility] for pneumonia, last was approxl 1 month ago Ocular hypertension Ulcerative colitis Mixed hyperlipidemia Lumbar stenosis with neurogenic claudication Idiopathic polyneuropathy Essential tremor Demyelinating disease Compartment syndrome of lower extremity (02/2025) per hx Chronic venous insufficiency Back pain at L4-L5 level Arthralgia Depression with anxiety Hx of fall (11/2024) History of dysphagia Hematuria On home O2 4 L nc History of recent hospitalization states has been in hospital 36 days this year so far with pneumonia- last was approx 1 month ago Sepsis Pyelonephritis Urinary tract obstruction due to kidney stone Lactic acidosis LPRD (laryngopharyngeal reflux disease) Severe obesity (BMI 35.0-35.9 with comorbidity) Uncontrolled type 2 diabetes mellitus with hyperglycemia Suspect low glycation index meaning his A1c is typically about 2 points lower than what his average glucose would suggest. Hypothyroidism Hypertension Non-occlusive coronary artery disease Acute dehydration hx Witnessed seizure-like activity Nonepileptic episode Chronic narcotic dependence COPD with exacerbation (03/2025) follows with dr. mccarthy (last seen while in hospital at [facility] with pneumonia ~) Anti-cyclic citrullinated peptide antibody positive Restrictive lung disease follows with dr. mccarthy, on O2 4L nc at all times Abnormal PFTs (pulmonary function tests) Bipolar disorder (10/11/22) Obstructive sleep apnea cpap 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 Follows with endocrinology- Secondary adrenal insufficiency Transient alteration of awareness Chronic adrenal insufficiency Leukocytosis Acute asthma exacerbation hx Acute on chronic hypoxic respiratory failure O2 4L nc Migraine Hematoma Growth hormone deficiency Diaphoresis hx Acute hypoxic respiratory failure hx Influenza A (12/2024) hx- Status epilepticus (09/13/24) Knee hemarthrosis, right (09/13/24) Acute on chronic anemia (09/13/24) Acute metabolic encephalopathy (09/13/24) hx Laceration of toe of right foot Closed fracture of right fibula with malunion Right fibular fracture hx Acute on chronic respiratory failure with hypoxia and hypercapnia Shortness of breath only if not wearing oxygen Chronic respiratory failure with hypoxia Obesity CKD (chronic kidney disease), stage III Peripheral edema Atrial fibrillation (02/15/24) no cardioversion- has loop recorder and watchmans device, follows with dr. kilgore (03/2025 while inpt.) Chronic low back pain Panhypopituitarism Toxic encephalopathy Chest pain hx Acute dyspnea hx Acute CHF hx Hypoglycemia hx Syncope and collapse Reason for loop recorder No recent issues since bed bound from femur fracture in Sep 2022 per patient Internal hemorrhoids Recurrent seizures (05/01/25) goes sometimes months without seizures, then may may have 2 in one day- last seizure- 05/01/25- grand mal, lost control of bowel and bladder- informed neuro, dr. villa- told to stay on meds (last saw dr. villa on tues 04/30/25) Pituitary diabetes insipidus Spondylolysis, lumbar region Right lumbar radiculopathy HTN (hypertension) Adrenal insufficiency Pituitary adenoma Hyperactive gag reflex BRCA gene positive tested positive in Aug 2023 [place] Family history of BRCA gene mutation PTSD (post-traumatic stress disorder) Epidural lipomatosis Chronic left sacroiliac pain Benzodiazepine overdose hx Presence of cardiac device Loop recorder > placed at [facility]- last checked fall 2023 Hx of fracture of foot Sep 2022- right > cast since removed > still gets painful Fracture of fibula, right, closed Cerebral concussion May 2023 during seizure > no further issues Orthostatic hypotension Sensorineural hearing loss of both ears Rectal bleeding on occasion History of COVID-19 10/2021 - fatigue; resolved. Mitral valve regurgitation follows with Dr. kilgore Vertigo Lower extremity edema Elevated LFTs Bilateral hand pain Pituitary neoplasm Dx'ed in 2001- s/p surgical resection and XRT Repeat surgery in 2017 secondary to tumor regrowth at [facility] Prostate mass benign Bladder mass benign Surgical History Presence of Watchman left atrial appendage closure device (02/2024) eric History of arthroplasty of left knee (2014) S/P TURP (status post transurethral resection of prostate) History of lumbar fusion (07/2022) [facility] [place] Jul 2022 History of cardiac cath (07/2021) 07/2021 - no stents- no hi - [facility]- follows with dr. kilgore S/P epidural steroid injection History of lithotripsy Status post right foot surgery replaced 5th metatarsal--hardware in place History of bladder surgery remove mass History of prostate surgery (2017) remove mass- not malignant History of colonoscopy History of esophagogastroduodenoscopy (EGD) History of tooth extraction History of wisdom tooth extraction History of brain surgery x2---2004 @ [facility], 2018 @ [facility]--for brain tumors > caused epilepsy Family History Grandmother (Paternal) Family history of diabetes mellitus Aunt Family history of diabetes mellitus Uncle Family history of diabetes mellitus Father , at 85 years of age from dementia. Prostate cancer Heart disease Osteoarthritis Mother , at 84 years of age from acute ND. Cardiac disorder Grandmother (Maternal) Myocardial infarction Other Asthma Cancer Hypertension No family history of adverse response to anesthesia No family history of bleeding disorder Stroke Denies family history of Ovarian cancer Breast cancer Colorectal cancer Social History Smoking Status: Never smoker Tobacco Type: Smokeless Tobacco (Dip or Chew) Second Hand Exposure: No; Do You Dip or Chew Tobacco: No; Hx Alcohol Use: No Hx Substance Use: No Preferred Language: Kiswahili Communication Ability: Impaired Communication Ability Comment: Unable to obtain due to patient condition. Visual Impairment: Limited Hearing Ability: Normal Fisher Dip Net Required: No Beliefs That Will Affect Care: Hindu marital status: Single Current Living Situation: Family Current Living Situation Comment: and daughter in [place] current occupational status: disabled How many Children do You have: 3 How many Children do You have Comment: able to assist with care if needed Feels Safe at Home: Yes Childhood Exposure to Second-Hand Smoke: Yes (parents smoked) Diet: regular Diet Comment: going to be starting low carb/low calorie diet. caffeine: No (1/2 20 oz bottle of mountain dew. ) during the past year weight has: increased > 10 lbs Physical Activity Frequency: Daily Physical Activity Frequency Comment: walking, 1.5 miles daily. Seatbelt Use: always Do you think of yourself as: straight/heterosexual Gender Identity: Male Assistive Devices: Wheelchair Review of Systems 2 Review of Systems: All systems reviewed & are unremarkable except as noted in HPI & below Physical Exam 2 Physical Exam: Last 24h vitals reviewed GEN: no acute distress, sitting in bed HEENT: pupils equal, sclerae anicteric, moist MM RESP: normal WOB, CTAB CV: reg no mrg ABD: soft/nt/nd +BT : no puentes SKIN: warm and dry, no generalized rashes NEURO: AOx person, place, and situation. Face symmetric, speech normal, moves 4 ext spontaneously and equally Results & Data Results & Data Vital Signs (Past 12 Hours) Vital Signs Temp Pulse Pulse Resp BP BP Pulse Ox 07/12/25 17:30 62 15 96 07/12/25 17:15 62 10 L 96 07/12/25 17:00 66 18 98 07/12/25 16:51 65 16 98 07/12/25 16:33 68 15 99 07/12/25 16:31 139/82 07/12/25 16:31 139/82 07/12/25 16:31 139/82 07/12/25 16:24 72 19 96 07/12/25 16:20 149/81 H 07/12/25 16:20 149/81 H 07/12/25 16:18 66 17 97 07/12/25 16:00 72 17 97 07/12/25 16:00 74 20 158/92 H 98 07/12/25 15:54 67 16 95 07/12/25 15:30 158/92 H 07/12/25 15:30 158/92 H 07/12/25 15:30 66 16 97 07/12/25 15:12 65 10 L 97 07/12/25 15:03 69 17 99 07/12/25 15:00 150/81 H 07/12/25 15:00 81 20 148/92 H 98 07/12/25 14:57 69 17 100 07/12/25 14:51 66 18 100 07/12/25 14:45 69 17 147/84 H 98 07/12/25 14:33 70 14 99 07/12/25 14:32 147/84 H 07/12/25 14:32 147/84 H 07/12/25 14:32 147/84 H 07/12/25 14:30 151/94 H 07/12/25 14:27 71 26 H 95 07/12/25 14:21 71 20 96 07/12/25 14:03 70 18 96 07/12/25 14:00 160/90 H 07/12/25 14:00 160/90 H 07/12/25 14:00 160/90 H 07/12/25 14:00 36.8 C 71 18 160/90 H 96 07/12/25 13:45 68 18 95 07/12/25 13:30 151/88 H 07/12/25 13:30 151/88 H 07/12/25 13:30 67 18 95 07/12/25 13:12 66 16 96 07/12/25 13:02 66 07/12/25 13:00 163/94 H 07/12/25 13:00 163/94 H 07/12/25 13:00 67 17 94 08/22/25 13:00 69 18 151/88 H 95 07/12/25 12:45 66 18 98 07/12/25 12:30 157/86 H 07/12/25 12:30 157/86 H 07/12/25 12:28 155/96 H 07/12/25 12:28 36.4 C L 66 18 155/96 H 07/12/25 12:27 67 13 97 07/12/25 12:00 67 18 148/84 H 97 07/12/25 11:48 69 13 07/12/25 11:31 148/84 H 07/12/25 11:31 148/84 H 07/12/25 11:30 99 07/12/25 11:30 36.8 C 65 18 137/65 99 07/12/25 11:19 36.5 C 74 18 135/87 98 O2 Del Method 07/12/25 17:30 07/12/25 17:15 07/12/25 17:00 07/12/25 16:51 07/12/25 16:33 07/12/25 16:31 07/12/25 16:31 07/12/25 16:31 07/12/25 16:24 07/12/25 16:20 07/12/25 16:20 07/12/25 16:18 07/12/25 16:00 07/12/25 16:00 Room Air 07/12/25 15:54 07/12/25 15:30 07/12/25 15:30 07/12/25 15:30 07/12/25 15:12 07/12/25 15:03 07/12/25 15:00 07/12/25 15:00 Room Air 07/12/25 14:57 07/12/25 14:51 07/12/25 14:45 Room Air 07/12/25 14:33 07/12/25 14:32 07/12/25 14:32 07/12/25 14:32 07/12/25 14:30 07/12/25 14:27 07/12/25 14:21 07/12/25 14:03 07/12/25 14:00 07/12/25 14:00 07/12/25 14:00 07/12/25 14:00 Room Air 07/12/25 13:45 07/12/25 13:30 07/12/25 13:30 07/12/25 13:30 07/12/25 13:12 07/12/25 13:02 07/12/25 13:00 07/12/25 13:00 07/12/25 13:00 07/12/25 13:00 Room Air 07/12/25 12:45 07/12/25 12:30 07/12/25 12:30 07/12/25 12:28 07/12/25 12:28 Room Air 07/12/25 12:27 07/12/25 12:00 Room Air 07/12/25 11:48 07/12/25 11:31 07/12/25 11:31 07/12/25 11:30 Room Air 07/12/25 11:30 Room Air 07/12/25 11:19 Room Air Laboratory Results 07/12/25 11:44 07/12/25 11:44 LFT and lipase normal Tn normal vbg without hypercarbia lactic acid elevated at 2.5-->3.0 Diagnostic Findings CXR - clear, personally reviewed film EKG - personally reviewed - NSR, old Qs in III and aVf, unchanged from previous Code Status & VTE Plan VTE Prophylaxis Plan VTE Prophylaxis will be ordered: Yes PG Care Time/CCT Total # of Minutes Spent Total Time Spent with Patient: Total time spent is greater than 50% in coordination of care (as documented) at patient's floor/unit and/or counseling patient: Coding Level of Care Code 96631 INT INP/OBS CARE 3/75MIN Diagnoses Elevated lactic acid level R79.89 Acute dehydration E86.0 Nausea & vomiting R11.2 Vomiting type: unspecified Diabetes E11.9 (3) Nausea & vomiting Vomiting type: unspecified Qualified Code(s): R11.2 - Nausea with vomiting, unspecified
[2025-07-12] MEDS ORDERED: HYDROCORTISONE HC 2.5% CRM 30GM TUBE EXT PRN (21:01)
[2025-07-12] MEDS ORDERED: ONDANSETRON INJ 2 MG/ML 2 ML VIAL IV PRN (21:01)
[2025-07-12] MEDS ORDERED: ALBUTEROL HFA 8 GM INHALER INH PRN (21:01)
[2025-07-12] MEDS ORDERED: GLUCOSE 40% GEL 15 GM TUBE PO PRN (21:01)
[2025-07-12] MEDS ORDERED: GLUCAGON FOR INJ 1 MG VIAL SQ PRN (21:01)
[2025-07-12] MEDS ORDERED: GLUCOSE 10 TAB/TUBE PO PRN (21:01)
[2025-07-12] MEDS ORDERED: ACETAMINOPHEN 325 MG TAB PO PRN (21:01)
[2025-07-12] MEDS ORDERED: CARBOHYDRATES FOR HYPOGLYCEMIA PO PRN (21:01)
[2025-07-12] MEDS ORDERED: DEXTROSE 50% 50 ML SYRINGE IV PRN (21:01)
[2025-07-12] MEDS ORDERED: FLUTICASONE PROPIONATE NA SPR 16 GM BTL PRN (21:01)
[2025-07-12] MEDS ORDERED: ALUMINUM/MAGNESIUM SUSP 30 ML UDC PO PRN (21:01)
[2025-07-12] MEDS ORDERED: LORazepam 0.5 MG TAB PO PRN (21:01)
[2025-07-12] MEDS ORDERED: ACETYLCYSTEINE 20% INHAL SOLN 4ML ***DISPENSED BY RESP. INH PRN (21:09)
[2025-07-12] MEDS: INSULIN ASPART PER UNIT CHARGE SC SCH (21:32)
[2025-07-12] MEDS: PROPRANOLOL HCL 60 MG LA CAP PO SCH (21:55)
[2025-07-12] MEDS: METOPROLOL SUCC 25MG EXT REL TAB PO SCH (21:56)
[2025-07-12] MEDS: DESMOPRESSIN ACETATE 0.1 MG TAB PO SCH (21:56)
[2025-07-12] MEDS: CLOPIDOGREL BISULFATE 75 MG TAB PO SCH (21:56)
[2025-07-12] MEDS: MIRTAZAPINE TAB 15 MG TAB PO SCH (21:56)
[2025-07-12] MEDS: HYDROCORTISONE 10 MG TAB PO SCH (21:56)
[2025-07-12] MEDS: PRAZOSIN HCL 1 MG CAP PO SCH (21:56)
[2025-07-12] MEDS: ASPIRIN 81 MG ECTAB PO SCH (21:56)
[2025-07-12] MEDS: ASCORBIC ACID 500 MG TAB PO SCH (21:57)
[2025-07-12] MEDS: MELATONIN 3 MG TAB PO PRN (22:02)
[2025-07-12] MEDS: LACOSAMIDE 50 MG TABLET PO SCH (22:02)
[2025-07-12 22:51] VITALS: RESP 18; TEMP 97.9
[2025-07-12] MEDS: SODIUM CHLOR 7% 4 ML NEB INH SCH (22:54)
[2025-07-12] MEDS: FORMOTEROL 20 MCG/2 ML VIAL INH SCH (22:54)
[2025-07-13] MEDS: LEVOTHYROXINE SODIUM 150 MCG TABLET PO SCH (05:48)
[2025-07-13 06:22] LABS: Cdiff Toxin B Gene (2yr or >) Negative Cdiff Gene (Neg)
[2025-07-13 06:52] LABS: Adenovirus F 40/41 PCR Not Detected (NotDetected); Campylobacter PCR Not Detected (NotDetected); Enteroaggregative E.coli(EAEC) Not Detected (NotDetected); Shiga-like Toxin E.coli (STEC) Not Detected (NotDetected); Vibrio species PCR Not Detected (NotDetected)
[2025-07-13 07:45] LABS: Anion Gap 6.0 (3-11); Blood Urea Nitrogen 7.0 mg/dl (6-23); Calcium 8.3 mg/dl (8.6-10.3); Carbon Dioxide 28.0 mmol/L (21-32); Chloride 105.0 mmol/L (98-107); Creatinine Clr Calc Pharmacy 147.9 ml/min; Glucose 100.0 mg/dl (70-99(Fasting)); Magnesium 1.4 mg/dl (1.7-2.4); Potassium 3.7 mmol/L (3.5-5.1); Sodium 139.0 mmol/L (136-145)
[2025-07-13 07:51] VITALS: BP 156/80; O2SAT 94
[2025-07-13] MEDS: DIVALPROEX DELAY RELEASE 500 MG TAB PO SCH (08:17)
[2025-07-13] MEDS: FINASTERIDE 5 MG TAB PO SCH (08:17)
[2025-07-13] MEDS: ARIPiprazole 5 MG TAB PO SCH (08:17)
[2025-07-13] MEDS: ZINC SULFATE 220 MG CAPSULE PO SCH (08:18)
[2025-07-13] MEDS: VITAMIN B COMPLEX TAB PO SCH (08:18)
[2025-07-13] MEDS: VENLAFAXINE HCL XR 150 MG CAPXR PO SCH (08:18)
[2025-07-13] MEDS: ROSUVASTATIN CALCIUM 20 MG TAB PO SCH (08:18)
[2025-07-13] MEDS: FERROUS SULFATE 325 MG TAB PO SCH (08:19)
[2025-07-13] MEDS: HYDROCORTISONE 10 MG TAB PO SCH (08:20)
[2025-07-13] MEDS: UMECLIDINIUM BROMIDE 62.5MCG/BLISTER 7 PUFFS/INHALER INH SCH (08:20)
[2025-07-13] MEDS: FAMOTIDINE 20 MG TAB PO SCH (08:44)
[2025-07-13] MEDS: MAGNESIUM SULFATE / D5W 1 GM/100 ML BAG IV SCH (10:18)
[2025-07-13] MEDS: THIAMINE HCL 500 MG in SODIUM CHLORIDE 0.9% 50 ML IV SCH (10:18)
--- NOTE | 2025-07-13 13:02 | Hospitalist Progress Note ---
Date of Service July 13, 2025 Assessment & Plan (1) Elevated lactic acid level: (2) Acute dehydration: (3) Nausea & vomiting: (4) Diabetes: Plan 55-year-old man with DM type 2, HTN, adrenal insufficiency, A-fib, CKD, COPD, PTSD, bipolar 1 disorder, ulcerative colitis as well as additional medical comorbidities presenting with persistent nausea / vomiting and nonbloody diarrhea for the past week. He has some generalized central abdominal pain but exam is benign. Lactate elevated to 2.6-->3.0 did not go down with 1 liter of fluids #N/V/D abdominal pain - no recent mounjaro, does have some chronic nausea. Ddx acute gastroenteritis, C. diff, flare of diabetic gastroparesis. Defer on abdominal imaging for now -IV fluids -IV ondansetron 4 mg q6h prn -check stool C. diff and biofire -hold stool softeners and laxatives -stop metformin -prn loperamide -history of UC but this has been nonbloody, seems less likely flare of UC #Elevated lactate - I reviewed old labs and lactate has been elevated mostly between 2.5-5.0 consistently since 2023 with few exceptions. Sometimes elevated well into hospital stays. -repeat level pending -stop metformin -check B1, empiric thiamine replacement after level is drawn -additional liter of IV fluid #Syncopal events - seem to be mixture of orthostatic events and also has had vasovagal events (while sitting on toilet) -monitor tele -check orthostatic VS. Many potential med culprits for this including B- blockers, dutasteride #T2DM H/o DMT2- metformin stopped, mounjaro held -continue glargine 4u HS and prn/premeal aspart. Has had hypoglycemias #Psychogenic nonepileptic seizures- and remote history of epileptic seizures - Keppra, Vimpat, divalproex - continue -talk with him about stopping one of these. I previously discussed with Dr. Ordonez - he is fine with trial of stopping AEDs #Adrenal insufficiency- Hydrocortisone, desmopressin - continue #COPD- Hypertonic nebs, formoterol, budesonide, DuoNebs, albuterol - continue, not in exacerbation #Afib, HTN- Metoprolol, DOAC #HLD- Crestor - continue #Hypothyroidism- Levothyroxine - continue #Anxiety/depression/bipolar 1/PTSD- [employer] ; venlafaxine, Seroquel, prazosin, Remeron, duloxetine, Abilify - continue #Tremor- Propranolol - continue #Chronic back pain- Oxycodone, duloxetine; PDMP independently reviewed - continue Dysgeusia - zinc supplement did not help. check B1. B12 recently ok. Could be medication side effect Recent bleeding anal fissure - resolved MRSA bacteremia mid May - did not get IV abx very long. Follow up blood cultures have fortunately been negative, except for a skin contaminant. Admission and Anticipated Discharge Date Admission Date: July 12, 2025 Physical Exam Physical Exam: Last 24h vitals reviewed GEN: no acute distress, sitting in bed HEENT: pupils equal, sclerae anicteric, moist MM RESP: normal WOB, CTAB CV: reg no mrg ABD: soft/nt/nd +BT : no puentes SKIN: warm and dry, no generalized rashes NEURO: AOx person, place, and situation. Face symmetric, speech normal, moves 4 ext spontaneously and equally Results & Data Results & Data Vital Signs (Past 12 Hours) Vital Signs Temp Pulse Resp BP Pulse Ox O2 Del Method 07/13/25 07:50 36.6 C 68 18 156/80 H 94 Room Air 07/13/25 07:14 66 18 95 Room Air 07/13/25 04:00 133/78 PG Care Time/CCT Total # of Minutes Spent Total Time Spent with Patient: Total time spent is greater than 50% in coordination of care (as documented) at patient's floor/unit and/or counseling patient: Coding Diagnoses Elevated lactic acid level R79.89 Acute dehydration E86.0 Nausea & vomiting R11.2 Vomiting type: unspecified Diabetes E11.9 (3) Nausea & vomiting Vomiting type: unspecified Qualified Code(s): R11.2 - Nausea with vomiting, unspecified
[2025-07-13 13:12] VITALS: PULSE 74
--- NOTE | 2025-07-13 19:39 | Discharge Summary ---
Discharge Summary Date of Service July 13, 2025 Principal Dx & Hospital Course #1 = Principal Diagnosis (1) Elevated lactic acid level: (2) Acute dehydration: (3) Nausea & vomiting: (4) Diabetes: Plan 55-year-old man with DM type 2, HTN, adrenal insufficiency, A-fib, CKD, COPD, PTSD, bipolar 1 disorder, ulcerative colitis as well as additional medical comorbidities presenting with persistent nausea / vomiting and nonbloody diarrhea for the past week. He has some generalized central abdominal pain but exam is benign. Lactate elevated to 2.6-->3.0 did not go down with 1 liter of fluids Basically dehydrated from gastroenteritis and symptoms resolved with IVF Metformin stopped because of multiply recurrent / persistent elevated lactate since 2021 I counted #44 lactate checks from [id number] and only 14/44 were in the normal range Big picture he would benefit from continuing to slowly decrease or stop medications one at a time and reduce his polypharmacy - he's willing at this time #N/V/D abdominal pain - no recent mounjaro, does have some chronic nausea. Ddx acute gastroenteritis, C. diff, flare of diabetic gastroparesis. Defer on abdominal imaging for now -dehydration treated with 2L IVF -stool C. diff and biofire negative -hold stool softeners and laxatives -stop metformin -prn loperamide -history of UC but this has been nonbloody, not seem like flare of UC -symptoms significantly improved overnight - stool thickening up, no nausea or emesis, ate a good breakfast #Elevated lactate - I reviewed old labs and lactate has been elevated mostly between 2.5-5.0 consistently since 2023 with few exceptions. Sometimes elevated well into hospital stays. -2.4-->3.0-->2.6 with 2L IV fluids last night and no evidence of sepsis or adrenal crisis etc -check B1, pending -stop metformin #Syncopal events - seem to be mixture of orthostatic events and also has had vasovagal events (while sitting on toilet) -nothing on tele over serial admissions -Many potential med culprits for this including B-blockers, dutasteride, prazosin -I personally checked his orthostatics today at 2 minute intervals and they were normal, he was asymptomatic 165/90-->156/100-->161/92 #T2DM H/o DMT2- metformin stopped, mounjaro held -continue glargine 4u HS and prn/premeal aspart. Has had hypoglycemias #Psychogenic nonepileptic seizures- and remote history of epileptic seizures - Maria Teresa Garnica - continue. I'm not clear on whether the VPA is intended to be AED or mood stabilizer -Roel reports PNES have not been troublesome recently -He's open to tapering off one or more AEDs. I previously discussed with Dr. Ordonez - he is also fine with trial of stopping AEDs. Can be addressed at upcoming neurology visit, or if he is admitted and misses it, doses can be tapered during hospitalizations #Adrenal insufficiency- Hydrocortisone, desmopressin - continue #COPD- Hypertonic nebs, formoterol, budesonide, DuoNebs, albuterol - continue, not in exacerbation #Afib, HTN- Metoprolol, DOAC #HLD- Crestor - continue #Hypothyroidism- Levothyroxine - continue #Anxiety/depression/bipolar 1/PTSD- [employer] ; venlafaxine, Seroquel, prazosin, Remeron, duloxetine, Abilify - continue #Tremor- Propranolol - continue #Chronic back pain- Oxycodone, duloxetine; PDMP independently reviewed - continue Dysgeusia - zinc supplement did not help. check B1. B12 recently ok. Could be medication side effect Recent bleeding anal fissure - resolved MRSA bacteremia mid May - did not get IV abx very long. Follow up blood cultures have fortunately been negative, except for a skin contaminant. Notes For Next Care Provider Medication Changes From Visit Stopped metformin - recurrently elevated lactate Admission HPI Per Admitting Provider 55-year-old man with DM type 2, HTN, adrenal insufficiency, A-fib, CKD, COPD, PTSD, bipolar 1 disorder, ulcerative colitis, tremor, depression and anxiety, hypothyroidism as well as additional medical comorbidities presenting with persistent nausea / vomiting and diarrhea for the past week. I reviewed the charts from last two recent admissions in [facility]. He was here with hypovolemia and QUENTIN leading to a syncopal episode and bumex was changed to PRN. Most recently he had an admission for hematochezia and was found to have a bleeding anal tear. He was transfused. Once discharged he started to have ongoing nausea/vomiting, vomiting repetitively soon after meals. He does have chronic nausea and has had flares of vomiting before. He has had green nonbloody diarrhea. He has mid-abdominal pain that is diffuse, not relieved by vomiting. No fever/chills. Has not taken mounjaro in at least a few weeks. Metformin reduced to 500 mg bid in primary care recently. No sick contacts. Feeling weak and dehydrated so came to ED. Rectal bleeding has stopped. He continues to have syncopal episodes - occurs with standing or sitting, not lying down. He sometimes has vertigo when lying down which is different. He hasn't had opioids for a week, just filled Rx, but prior to that wasn't taking more than once a day so should not be having withdrawal symptoms. He's not been having trouble with seizures recently. Discharge Plan Discharge Items Patient Disposition: Home - Self-Care Reason For Visit: GASTROENTERITIS Discharge Diagnosis: Acute gastroenteritis, dehydration Condition on Discharge: Good Activity: Resume your previous activity Non-emergency contact: Primary Care Provider and Neurologist Call non-emergency contact if: you have any medication questions and your symptoms worsen Follow-up/Referrals: Elliot Phelps MD [Physician] - Pro,Larry Crisostomo MD [Primary Care Provider] - Gennaro Ordonez MD [Physician] - Diet: Carb Consistent or DM2 Addtl Attending Provider Instructions: You were treated for dehydration related to nausea/vomiting and diarrhea. This might have been a gastroenteritis (like norovirus, E. coli etc) and may have run its course. Hold laxatives like docusate, miralax, and your magnesium supplement until diarrhea resolved I will call you if stool tests show anything. The blacking out episodes might be related to low blood pressure on standing. Dehydration, blood pressure medications, prazosin, and prostate medications can aggravate or cause this. It sounds like you've also had episodes of vasovagal syncope in the past so this is a possibility. Today your standing blood pressure did not fall, but you had IV fluids last night. Continue only using the bumetanide on an "as needed" basis I'm worried that the metformin is causing you to have a rare side effect called lactic acidosis. I've only seen one or two true cases in my career, however, your blood lactic acid level has been elevated far more often than not over the course of many hospitalizations since 2021. Dehydration and other illnesses like infections can cause high lactic acid, however, your pattern is not like that because it doesn't clear up quickly with fluids and other treatments. Its possible that some drug interaction is making you more sensitive to the metformin. I think its gary to stop the metformin, which can also cause GI side effects. Follow up with Dr. Phelps When you see Dr. Ordonez, talk to him about trying to taper some of the epilepsy medicine. Its been a pleasure taking care of you in the hospital, Ivana Mahoney MD Pending Studies at Discharge: Yes Stand-Alone Forms: My [facility], Smoking Cessation Medications and DC Order Prescriptions: Continued clopidogrel [Plavix] 75 mg tablet 75 mg PO QPM fluticasone propionate [Flonase Allergy Relief] 50 mcg/actuation spray,suspension 1 spray intranasal HS PRN (Reason: allergy symptoms) Qty: 16 0RF Rx Instructions: administer into each nostril (DME) insulin syringe-needle U-100 [BD Insulin Syringe Ultra-Fine] 1 mL 30 gauge x 1/2" syringe See Rx Instructions .Route Qty: 300 1RF Rx Instructions: use tid (DME) OneTouch Verio test strips Strip See Rx Instructions .MEDSUPPLY Qty: 150 5RF Rx Instructions: check blood sugars 4 times a day (DME) blood-glucose meter [OneTouch Verio Reflect Meter] Misc See Rx Instructions miscellaneous .MEDSUPPLY Qty: 1 0RF Rx Instructions: As directed (DME) lancets [OneTouch Delica Plus Lancet] 33 gauge misc See Rx Instructions .MEDSUPPLY Qty: 150 5RF Rx Instructions: As directed check blood sugars 4 times a day (DME) pen needle, diabetic [BD Vy 2nd Gen Pen Needle] 32 gauge x 5/32" needle See Rx Instructions miscellaneous .MEDSUPPLY Qty: 100 3RF Rx Instructions: inject with a new pen needle daily lorazepam 0.5 mg tablet 0.5 mg PO DAILY PRN (Reason: Seizure Activity) metoprolol succinate 25 mg tablet extended release 24 hr 25 mg PO HS Qty: 90 3RF lacosamide 150 mg tablet 150 mg PO BID Qty: 60 5RF (DME) Oxygen Home Liters Per Minute See Rx Instructions .Route Rx Instructions: 4 L o2 via NC As directed, cholecalciferol (vitamin D3) 50 mcg (2,000 unit) capsule 50 mcg PO QPM Qty: 90 1RF levothyroxine [Synthroid] 150 mcg tablet 150 mcg PO DAILYBB Qty: 30 5RF (DME) FreeStyle Rosalie 2 Sensor Kit See Rx Instructions .Route Qty: 6 3RF Rx Instructions: Change every 14 days desmopressin 0.2 mg tablet 0.4 mg PO BID Qty: 120 5RF (DME) FreeStyle Rosalie 2 Plus Sensor Device See Rx Instructions .Route Qty: 6 3RF Rx Instructions: change every 15 days dutasteride 0.5 mg capsule 0.5 mg PO QAM Qty: 90 2RF levetiracetam 1,000 mg tablet 1,000 mg PO Q12H Qty: 60 6RF ondansetron 8 mg tablet,disintegrating 8 mg PO Q8H PRN (Reason: nausea and vomiting) Qty: 30 0RF famotidine 20 mg tablet 20 mg PO QAM Qty: 90 1RF rosuvastatin 20 mg tablet 20 mg PO QAM Qty: 90 2RF (DME) FreeStyle Rosalie 2 [place] Misc See Rx Instructions .Route Qty: 1 0RF Rx Instructions: Check blood glucose before each meal mirtazapine [Remeron] 30 mg tablet 30 mg PO HS prazosin 5 mg capsule 5 mg PO HS (DME) nebulizers [Compact Compressor Nebulizer] Misc See Rx Instructions .Route Qty: 1 0RF Rx Instructions: One compact compressor nebulizer. Use as directed. Please include tubing, mouth piece and cup. ipratropium-albuterol 0.5 mg-3 mg(2.5 mg base)/3 mL solution for nebulization 3 ml inhalation QID PRN (Reason: wheezing) Qty: 90 0RF insulin glargine [Lantus Solostar U-100 Insulin] 100 unit/mL (3 mL) insulin pen 4 unit SUBCUT HS Qty: 15 0RF Hold Instructions: Has been on hold for a few weeks per pt albuterol sulfate [Ventolin HFA] 90 mcg/actuation HFA aerosol inhaler 2 inh inhalation Q6H PRN (Reason: shortness of breath or wheezing) Qty: 6.7 2RF arformoterol [Brovana] 15 mcg/2 mL solution for nebulization 2 ml inhalation BID Qty: 120 7RF budesonide 0.5 mg/2 mL suspension for nebulization 0.5 mg inhalation BID Qty: 60 7RF Spiriva Respimat 2.5 mcg/actuation mist 2 puff inhalation DAILY Qty: 4 7RF ascorbic acid (vitamin C) 250 mg tablet 250 mg PO BID Qty: 60 2RF hydrocortisone 10 mg tablet 10 mg PO QPM Rx Instructions: 2 tabs (20mg) in AM, 1 tab (10mg) in PM double dose in times of stress propranolol 120 mg capsule,extended release 24hr 120 mg PO HS sodium chloride 7 % solution for nebulization 1 inh inhalation BID Qty: 240 3RF acetylcysteine 200 mg/mL (20 %) solution 2 ml inhalation BID PRN (Reason: Chest congestion) Qty: 100 6RF oxycodone-acetaminophen [Percocet] 5-325 mg tablet 1 tab PO Q4H PRN (Reason: severe complex multifocal pain) 30 Days Qty: 180 0RF Baqsimi 3 mg/actuation spray,non-aerosol 3 mg intranasal ONCE PRN (Reason: Severe Hypoglycemia) Rx Instructions: for treatment of severe hypoglycemia, second dose may be given if patient does not respond after 15 minutes . Per caregiver, pt has never has to use this medication. vitamin B complex [Vitamins B Complex] Capsule 1 cap PO QAM Qty: 30 0RF venlafaxine 150 mg capsule,extended release 24hr 150 mg PO QAM quetiapine 50 mg tablet extended release 24 hr 50 mg PO QAM duloxetine 30 mg capsule,delayed release(DR/EC) 30 mg PO HS Qty: 30 0RF Norditropin FlexPro 5 mg/1.5 mL (3.3 mg/mL) pen injector 3 mg SQ QPM sumatriptan succinate 50 mg Tablet 0 mg PO .COMPLEX PRN (Reason: Migraine Headache) Rx Instructions: UNABLE TO VERIFY STRENGTH, PT UNSURE. take 1 tab at onset of headache; if no relief may repeat 1 tab after at least 2 hrs; max = 4 tabs/24 hr aripiprazole 5 mg tablet 5 mg PO QAM divalproex 500 mg tablet,delayed release (DR/EC) 1,000 mg PO QAM duloxetine 60 mg capsule,delayed release(DR/EC) 60 mg PO QAM aspirin 81 mg capsule 81 mg PO QPM Hold Instructions: Resume on 06/12/25. Hold OFF aspirin while you are taking linezolid 600mg PO bid (05/31/2025 pm through 06/11/2025 pm) as linezolid can lower your platelet count. Restart aspirin on 06/12/2025 am. naloxone [Narcan] 4 mg/actuation spray,non-aerosol 1 spray intranasal ONCE PRN (Reason: opioid overdose) Qty: 2 2RF lisinopril 10 mg tablet 10 mg PO QAM mupirocin 2 % ointment 1 applic TOPICAL DAILY hydrocortisone 10 mg tablet 20 mg PO QAM Rx Instructions: 2 tabs (20mg) in AM, 1 tab (10mg) in PM double dose in times of stress testosterone 20.25 mg/1.25 gram (1.62 %) gel in metered-dose pump 2 pump topical QPM hydrocortisone [Proctosol HC] 2.5 % cream with perineal applicator 1 applic MO DAILY PRN (Reason: hemorrhoids) 14 Days Qty: 30 0RF Changed ferrous sulfate 325 mg (65 mg iron) tablet 650 mg PO Q OTHER DAY 30 Days Qty: 30 0RF Rx Instructions: you can take this every other day - it works just as well and causes fewer bowel problems bumetanide 1 mg tablet 1 mg PO QAM PRN (Reason: PRN) Qty: 0 0RF Rx Instructions: as needed for leg edema / water weight Held magnesium oxide 400 mg (241.3 mg magnesium) tablet 400 mg PO HS Hold Instructions: hold until diarrhea resolved - magnesium supplement can cause diarrhea Mounjaro 5 mg/0.5 mL pen injector 5 mg SUBCUT WK Hold Instructions: don't take until nausea/vomiting resolved Rx Instructions: sundays docusate sodium 100 mg Capsule 100 mg PO BID 30 Days Qty: 60 0RF Hold Instructions: don't take when you are having diarrhea/loose stool polyethylene glycol 3350 [Miralax] 17 gram/dose powder 17 g PO BID 30 Days Qty: 1020 0RF Hold Instructions: don't take when you're having diarrhea Discontinued zinc sulfate [Orazinc] 50 mg zinc (220 mg) Capsule 200 mg PO QAM Qty: 0 0RF Rx Instructions: buy over the counter, reduce to 1 cap after 2-4 weeks metformin 1,000 mg tablet 1,000 mg PO BID Discharge Orders: Discharge Order (Routine); Ordered 07/13/25 Ordered By: Ivana Mahoney Admission Data Admit Date/Time: 07/12/25 18:30 Attending Provider: Ivana Mahoney Admit Provider: Ivana Mahoney Primary Care Provider: Larry Amaral Other Providers: Ivana Mahoney Other Interventions: Discharge Summary Assessment (RN) Last Done: 07/13/25 13:11 Hospital Stay Data Consultations 07/12/25 16:20 ED Decision to Admit Stat Diagnostic Imagining Performed 07/12/25 11:35 CT head/brain wo con Stat Pending Results Patient Have Any Pending Studies at Discharge: Yes Discharge Instructions Given to Patient (Per Discharging Provider) You were treated for dehydration related to nausea/vomiting and diarrhea. This might have been a gastroenteritis (like norovirus, E. coli etc) and may have run its course. Hold laxatives like docusate, miralax, and your magnesium supplement until diarrhea resolved I will call you if stool tests show anything. The blacking out episodes might be related to low blood pressure on standing. Dehydration, blood pressure medications, prazosin, and prostate medications can aggravate or cause this. It sounds like you've also had episodes of vasovagal syncope in the past so this is a possibility. Today your standing blood pressure did not fall, but you had IV fluids last night. Continue only using the bumetanide on an "as needed" basis I'm worried that the metformin is causing you to have a rare side effect called lactic acidosis. I've only seen one or two true cases in my career, however, your blood lactic acid level has been elevated far more often than not over the course of many hospitalizations since 2021. Dehydration and other illnesses like infections can cause high lactic acid, however, your pattern is not like that because it doesn't clear up quickly with fluids and other treatments. Its possible that some drug interaction is making you more sensitive to the metformin. I think its gary to stop the metformin, which can also cause GI side effects. Follow up with Dr. Phelps When you see Dr. Ordonez, talk to him about trying to taper some of the epilepsy medicine. Its been a pleasure taking care of you in the hospital, Ivana Mahoney MD Total Time Total Time Spent Total Time Spent (In Minutes): I personally spent: 45 minutes today on clinical care activities including: reviewing chart notes and vital signs reviewing labs examining and counseling the patient writing orders discharge instructions documentation Coding Level of Care Code 23976 INP/OBS DISCH >30 MIN Diagnoses Elevated lactic acid level R79.89 Acute dehydration E86.0 Nausea & vomiting R11.2 Vomiting type: unspecified Diabetes E11.9
[2025-07-13] MEDS ORDERED: CHOLECALCIFEROL 25 MCG (1000 UNITS) TAB PO SCH (21:00)
== END 2025-07-13 13:34 | disposition home or self-care (01) ==
LOC: SUATTDRO → 3N 11:15 → ED 11:15 → 3N 20:57

== ENCOUNTER 2025-09-13 20:34 | Inpatient (IN) ==
--- NOTE | 2025-09-13 20:45 | Emergency Department Note ---
Impression & Plan Atrial tachycardia, Hypomagnesemia, Prolonged QT interval syndrome, Acute hypokalemia ED Provider Note NAME: LINSEY VIRAMONTES Jr AGE: 55 SEX: M : 1970 ARRIVES VIA: Ambulance INFORMANT: Patient ED PROVIDER(S): James Estrada DO CHIEF COMPLAINT: Seizures HPI: Patient is a 55-year-old male with a past medical history of seizures, bipolar disorder, arthralgias, hypertension, history of Watchman procedure and A-fib, and prostate mass who presents to the ER for seizures. He notes he had several seizures today. He stopped taking his medications on Tuesday which included all of his medications. He denies any headache or change in vision. No chest pain or shortness of breath. No belly pain. No nausea, vomiting or diarrhea. No dysuria, urgency or frequency. No other exacerbating or remitting factors. He does admit to pain all over. ADDITIONAL HISTORY OBTAINED: Per HPI Chronic Medical/Social Conditions Affecting Care: Per HPI PAST MEDICAL HISTORY:See Below PAST SURGICAL HISTORY:See Below FAMILY HISTORY:See Below SOCIAL HISTORY:See Below HOME MEDICATIONS:See Below ALLERGIES:See Below VITALS:See Below PHYSICAL EXAMINATION: GENERAL: Sitting up in bed, alert, well appearing, well nourished, no distress, non-toxic EYE EXAM: normal conjunctiva. PERRL and EOM's intact. OROPHARYNX: no exudate, no erythema, lips, buccal mucosa, and tongue normal and mucous membranes are moist NECK: supple, no nuchal rigidity, no adenopathy, non-tender LUNGS: Clear to auscultation. Normal chest wall mechanics HEART: no murmurs, S1 normal and S2 normal ABDOMEN: abdomen soft, non-tender, normo-active bowel sounds, no masses, no rebound or guarding. BACK: Back is symmetrical on inspection and there is no deformity, no midline tenderness, no CVA tenderness. SKIN: no rashes and no bruising UPPER EXTREMITIES: upper extremities are grossly normal. LOWER EXTREMITIES: No pitting edema. NEURO EXAM: Normal sensorium, cranial nerves II-XII intact, normal speech, no weakness of arms, no weakness of legs. No drift. Finger to nose intact. Gross sensation intact. MEDICAL DECISION MAKING: Patient is a 55-year-old male who presents ER for above-stated complaint. Patient stopped taking all of his medications on Tuesday. IV was established and blood work is obtained. Labs showed a mild leukopenia 4.7 thousand. No significant anemia. BMP with a hypokalemia at 2.7. This was repleted with 40 mill equivalents orally and 10 mill IV. Mag was low at 1.3. This was repeated to the IV was 1 g. LFTs and T. bili is unremarkable. Troponin is negative. Lipase normal. Valproic normal. CT head was negative. Chest x-ray unremarkable. Patient was given IV fluids in combination with IV Ativan. His shaking did improve/tremors. Heart rate has been trending down to low 120s. He does have a prolonged QTc. Patient was given IV mag and oral potassium. Discussed with the hospitalist for further evaluation management treatment. I do feel like this is consistent with a sinus rhythm as opposed to A-fib or a flutter. Patient remained on his chronic 4 L nasal cannula throughout his stay in the ER. D-dimer was pending upon admission. Please see the hospitalist notes for further details. Consults/Care Managements Discussions: Per [facility] Triage Nursing notes reviewed. Limited review of prior medical records performed Vital Signs: reviewed and remarkable for no significant abnormalities Differential diagnosis: Differential diagnosis includes etiologies such as infection, hypoglycemia, electrolyte abnormalities, cardiac sources, intracerebral event, trauma, toxicologic, neurologic, as well as others were entertained. ER treatment provided: See below Diagnostics interpreted by me include EKG and cardiac monitoring as listed below: -Cardiac Monitoring: An order was placed for continuous cardiac monitoring. The monitor shows a rate of 122 with sinus rhythm. -ECG: Sinus tachycardia rate of 134 Normal axis No PVCs QTc 564 -Laboratory studies:Interpreted by me as stated above in [facility] and shown below. Imaging studies: Xrays: As interpreted by me: Portable AP upright 1 view of the chest shows no focal Lutrate CTs show: CT head was negative per radiology Procedures:none Critical Care: None Past Med/Surg History Problem List (Updated 09/13/25 @ 23:40 by James Estrada DO) Acute hypokalemia (Acute) Prolonged QT interval syndrome (Acute) Hypomagnesemia (Acute) Atrial tachycardia (Acute) Decreased appetite (Acute) Calcium nephrolithiasis (Chronic) Bipolar disorder (Acute) Seizure disorder Urgency of urination Diabetes insipidus Muscular deconditioning Hyponatremia Dizziness (Acute) Abrasion of knee (Acute) Chronic anemia (Acute) Hypomagnesemia (Acute) Hyperphosphatemia (Acute) Vision loss, left eye Entered 05/2025 Hypopituitarism Psychogenic nonepileptic seizure Asthma Intractable back pain (Acute) Encounter for preoperative assessment (Acute) Numbness of right foot Palliative care by specialist (Chronic) DO NOT DELETE. FOLLOWED BY [facility] SEVERE CHRONIC PAIN SYNDROME Bilateral nephrolithiasis (Chronic) Elevated lactic acid level Compartment syndrome of lower extremity Entered 02/2025 Ambulatory dysfunction (Acute) Arthralgia Venous stasis ulcers (Acute) Chronic venous insufficiency (Chronic) Presbyopia of both eyes Epiretinal membrane (ERM) of left eye Ocular hypertension Secondary cataract of left eye with vision obscured Combined form of senile cataract of right eye Abnormal chest CT Demyelinating disease Esophageal dysphagia 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 tested positive in Aug 2023 [place] Current use of proton pump inhibitor Chronic migraine without aura or status migrainosus Ulcerative colitis Mixed hyperlipidemia Lumbar stenosis with neurogenic claudication Pseudoseizures Lumbosacral radiculopathy Idiopathic polyneuropathy Essential tremor Mitral regurgitation Depression Anxiety (Chronic) Hx of hematuria Hematochezia History of dysphagia Anti-cyclic citrullinated peptide antibody positive Abnormal PFTs (pulmonary function tests) Internal hemorrhoids Prostate mass benign Family history of BRCA gene mutation Medical History Adrenal insufficiency On hydrocortisone Arachnoid cyst of posterior cranial fossa Benign congenital arachnoid cyst in the posterior fossa per 01/2025 brain MRI Atrial fibrillation (02/15/24) no cardioversion- has loop recorder and watchmans device, follows with dr. kilgore (will see 09/18/25) Back pain at L4-L5 level will see [facility] surgeon on 09/13/25 Bilateral hand pain Bipolar 1 disorder Bladder mass benign Blood loss anemia (06/2025) admit to [facility], required blood transfusion BPH with obstruction/lower urinary tract symptoms Cerebral concussion May 2023 during seizure > no further issues CHF (congestive heart failure) EF WNL on 10/2024 ECHO CHI (closed head injury) reports multiple due to seizures/falls Chronic left sacroiliac pain Chronic narcotic dependence Chronic respiratory failure with hypoxia O2 4L nc Chronic venous insufficiency CKD (chronic kidney disease), stage III follows with neph- dr. espinoza (will see 10/2025) Closed fracture of right fibula with malunion will see [facility] surgeon on 09/13/25- wears boot daily Compartment syndrome of lower extremity (02/2025) per hx COPD (chronic obstructive pulmonary disease) follows with dr. mccarthy (last seen april 2025)- well controlled with nebs/inhaler- last used rescue inhaler jun 2025- wears O24L at all times Demyelinating disease Depression with anxiety Epidural lipomatosis Essential tremor Frequent falls most recent- last week, states "im very sore" - states will see pcp dr. rodrigues on 09/13/25 Generalized pain Generalized weakness Growth hormone deficiency on medication (treated with growth hormone per endocrine) History of COVID-19 10/2021 - fatigue; resolved. History of pneumonia (03/2025) states has been admitted for total of 36 days ytd at [facility] for pneumonia History of recent hospitalization reports has been admitted to hospital over 100 days in 2024- last was at [facility] 06/2025- all at [facility] HTN (hypertension) Hyperactive gag reflex Hyperphosphatemia Hypokalemia Hypomagnesemia Hypothyroidism Central hypothyroidism Idiopathic polyneuropathy Kidney stones no current pain Lower extremity edema LPRD (laryngopharyngeal reflux disease) Lumbar stenosis with neurogenic claudication Migraine Mitral valve regurgitation follows with Dr. 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 on medication (DDAVP) follows with endocrine Pituitary hypogonadism Follows with endocrinology- Pituitary neoplasm Dx'ed in 2001- s/p surgical resection and XRT Repeat surgery in 2018 secondary to tumor regrowth at [facility] - Follows with endo- repeat pituitary MRI scheduled 2027 Presence of cardiac device Loop recorder > placed at [facility]- last checked fall 2023 PTSD (post-traumatic stress disorder) Rectal bleeding on occasion Recurrent seizures - PNES per records goes sometimes months without seizures, then may may have 2 in one day- last seizure-June 2025- grand mal- follows with dr. villa (07/2025) Restrictive lung disease follows with dr. mccarthy, on O2 4L nc at all times Right leg pain had seizure 09/2024 "that messed up my back and leg" pt reports will go to [facility] on 09/13/25 to see a neurosurgeon Right lumbar radiculopathy Secondary adrenal insufficiency Sensorineural hearing loss of both ears Shortness of breath only if not wearing oxygen Spondylolysis, lumbar region Syncope and collapse Reason for loop recorder No recent issues since bed bound from femur fracture in Sep 2022 per patient Therapeutic opioid-induced constipation (OIC) Transient alteration of awareness Ulcerative colitis Uncontrolled type 2 diabetes mellitus with hyperglycemia Suspect low glycation index meaning his A1c is typically about 2 points lower than what his average glucose would suggest. Urinary tract obstruction due to kidney stone Vertigo Surgical History History of arthroplasty of left knee (2014) History of bladder surgery remove mass History of brain surgery (2017) x2---2004 @ [facility], 2018 @ [facility]--for brain tumors > caused epilepsy History of cardiac cath (07/2021) 07/2021 - no stents- no mi - [facility]- follows with dr. kilgore History of colonoscopy History of esophagogastroduodenoscopy (EGD) History of lithotripsy History of lumbar fusion (07/2022) [facility] [place] - History of open reduction and internal fixation (ORIF) procedure (2009) right 5th metatarsal, has pins and cadaver bone, still gets painful- 2009 right femur- as a child History of prostate surgery (2016) remove mass- not malignant History of tooth extraction History of wisdom tooth extraction Hx of flexible sigmoidoscopy (07/03/25) Presence of Watchman left atrial appendage closure device (02/2024) eric S/P epidural steroid injection S/P TURP (status post transurethral resection of prostate) Family History Grandmother (Paternal) Family history of diabetes mellitus Aunt Family history of diabetes mellitus Uncle Family history of diabetes mellitus Father , at 85 years of age from dementia. Prostate cancer Heart disease Osteoarthritis Mother , at 84 years of age from acute RI. Cardiac disorder Grandmother (Maternal) Myocardial infarction Other Asthma Cancer Hypertension No family history of adverse response to anesthesia No family history of bleeding disorder Stroke Denies family history of Ovarian cancer Breast cancer Colorectal cancer Social History Smoking Status: Never smoker Tobacco Type: Smokeless Tobacco (Dip or Chew) Second Hand Exposure: No; Do You Dip or Chew Tobacco: Yes (chews daily (advised)); Hx Alcohol Use: No Hx Substance Use: No Preferred Language: Mosotho Communication Ability: Effective Communication Ability Comment: Unable to obtain due to patient condition. Visual Impairment: Limited Hearing Ability: Normal Oral Communication Instructor Required: No Beliefs That Will Affect Care: None marital status: Single Current Living Situation: Family Current Living Situation Comment: and daughter in [place] current occupational status: disabled How many Children do You have: 3 How many Children do You have Comment: able to assist with care if needed Feels Safe at Home: Yes Childhood Exposure to Second-Hand Smoke: Yes (parents smoked) Diet: regular Diet Comment: going to be starting low carb/low calorie diet. caffeine: No (1/2 20 oz bottle of mountain dew. ) during the past year weight has: increased > 10 lbs Physical Activity Frequency: Daily Physical Activity Frequency Comment: walking, 1.5 miles daily. Seatbelt Use: always Do you think of yourself as: straight/heterosexual Gender Identity: Male Assistive Devices: Cane, CPAP, Nebulizer, Oxygen - Continuous and Other Allergies Allergies Allergy/AdvReac Type Severity Reaction Status Date / Time clindamycin Allergy Intermediate SWELLING Verified 09/11/25 11:02 Iodinated Contrast Media Allergy Intermediate face/eye Verified 09/11/25 11:02 swelling Quinolones Allergy Intermediate HIVES Verified 09/11/25 11:02 tomato Allergy Intermediate swelling Verified 09/11/25 11:02 metformin AdvReac Unknown lactic Verified 09/11/25 11:02 acidosis Home Meds Home Medications Medication Instructions Recorded Confirmed mirtazapine 30 mg tablet (Remeron) 30 mg PO HS 06/23/22 09/11/25 glucagon 3 mg/actuation nasal 3 mg intranasal ONCE PRN Severe 04/06/24 09/11/25 spray (Baqsimi) Hypoglycemia Oxygen Home 01/30/25 09/05/25 magnesium oxide 400 mg (241.3 mg 400 mg PO HS 03/01/25 09/11/25 magnesium) tablet quetiapine 50 mg tablet,extended 50 mg PO QAM 03/19/25 09/11/25 release 24 hr venlafaxine 150 mg 150 mg PO QAM 03/19/25 09/11/25 capsule,extended release 24 hr prazosin 5 mg capsule 7 mg PO HS 04/05/25 09/11/25 somatropin 5 mg/1.5 mL (3.3 mg/mL) 3 mg subcut QPM 05/29/25 09/11/25 subcutaneous pen injector (Norditropin FlexPro) hydrocortisone 10 mg tablet 10 mg PO QPM 06/13/25 09/11/25 hydrocortisone 10 mg tablet 20 mg PO QAM 07/02/25 09/11/25 clopidogrel 75 mg tablet 75 mg PO QPM 08/06/25 09/11/25 famotidine 20 mg tablet 20 mg PO QAM 08/06/25 09/11/25 lacosamide 150 mg tablet 100 mg PO BID 08/06/25 09/11/25 levetiracetam 1,000 mg tablet 250 mg PO BID 08/06/25 09/11/25 levothyroxine 200 mcg tablet 200 mcg PO QAM 08/06/25 09/11/25 lisinopril 10 mg tablet 20 mg PO QPM 08/06/25 09/11/25 ramelteon 8 mg tablet 8 mg PO QPM 08/06/25 09/11/25 divalproex 500 mg tablet,extended 500 mg PO QAM 09/11/25 09/11/25 release 24 hr Previous Rx's Medication Instructions Recorded fluticasone propionate 50 1 spray intranasal HS PRN allergy 03/16/23 mcg/actuation nasal symptoms #16 grams spray,suspension (Flonase Allergy Relief) FreeStyle Rosalie 2 [place] (flash #1 ea 05/13/23 glucose scanning reader) blood sugar diagnostic (OneTouch #150 ea 11/22/23 Verio test strips) blood-glucose meter (OneTouch #1 ea 11/22/23 Verio Reflect Meter) lancets 33 gauge (OneTouch Delica #150 ea 11/22/23 Plus Lancet) ipratropium 0.5 mg-albuterol 3 mg 3 ml inhalation QID PRN wheezing 07/31/24 (2.5 mg base)/3 mL nebulization #90 mL soln nebulizers (Compact Compressor #1 ea 07/31/24 Nebulizer) vitamin B complex (Vitamins B 1 cap PO QAM #30 caps 10/26/24 Complex capsule) acetylcysteine 200 mg/mL (20 %) 2 ml inhalation BID PRN Chest 03/26/25 solution congestion #100 mL cholecalciferol (vitamin D3) 50 50 mcg PO QPM #90 caps 03/26/25 mcg (2,000 unit) capsule sodium chloride 7 % for 1 inh inhalation BID #240 mL 03/26/25 nebulization FreeStyle Rosalie 2 Sensor (flash #6 ea 05/06/25 glucose sensor) desmopressin 0.2 mg tablet 0.4 mg (2 x 0.2 mg) PO BID #120 05/16/25 tabs naloxone 4 mg/actuation nasal 1 spray intranasal ONCE PRN opioid 05/18/25 spray (Narcan) overdose #2 ea FreeStyle Rosalie 2 Plus Sensor #6 ea 06/04/25 (blood-glucose sensor) dutasteride 0.5 mg capsule 0.5 mg PO QAM #90 caps 06/19/25 albuterol sulfate 90 mcg/actuation 2 inh inhalation Q6H PRN shortness 07/01/25 aerosol inhaler (Ventolin HFA) of breath or wheezing #6.7 grams arformoterol 15 mcg/2 mL solution 2 ml inhalation BID #120 mL 07/01/25 for nebulization (Brovana) budesonide 0.5 mg/2 mL suspension 0.5 mg (2 mL) inhalation BID #60 mL 07/01/25 for nebulization insulin glargine 100 unit/mL (3 10 unit (0.1 mL) subcut HS #15 mL 07/15/ mL) subcutaneous pen (Lantus Solostar U-100 Insulin) propranolol 120 mg capsule,24 120 mg PO HS #90 caps 08/12/25 hr,extended release docusate sodium 100 mg capsule 100 mg PO BID 30 days #60 caps 08/13/25 ascorbic acid (vitamin C) 250 mg 250 mg PO BID #60 tabs 08/30/25 tablet ferrous sulfate 325 mg (65 mg 650 mg (2 x 325 mg (65 mg iron)) 08/30/25 iron) tablet PO Q OTHER DAY 30 days #30 tabs oxycodone-acetaminophen 5 mg-325 1 tab PO Q6H PRN very severe pain 09/04/25 mg tablet (Percocet) only 1 month #120 tabs ondansetron 8 mg disintegrating 8 mg PO Q8H PRN nausea and 09/10/25 tablet vomiting #90 tabs Results & Data (ED) Vital Signs Vital Signs - 24 hr 09/13/25 20:44 09/13/25 20:45 09/13/25 20:45 Temperature 36.8 C Temperature Source Oral Pulse Rate 134 H 131 H Pulse Rate [Apical] Respiratory Rate 20 Respiratory Effort / Characteristics Non-Labored Spontaneous Respiratory Depth Normal Blood Pressure 121/78 Blood Pressure [Left Arm] Blood Pressure Mean 92 Blood Pressure Mean [Left Arm] Pulse Oximetry 99 99 Oxygen Delivery Method Nasal Cannula Nasal Cannula Oxygen Flow Rate 4 4 Sepsis Recent Fever Within 48 Hours No Sepsis New/Unexplained Change in Mental Status No Sepsis Action Taken by Nursing No Action Required 09/13/25 22:41 Temperature Temperature Source Pulse Rate Pulse Rate [Apical] 129 H Respiratory Rate 18 Respiratory Effort / Characteristics Non-Labored Spontaneous Respiratory Depth Normal Blood Pressure Blood Pressure [Left Arm] 96/70 L Blood Pressure Mean Blood Pressure Mean [Left Arm] 78 Pulse Oximetry 95 Oxygen Delivery Method Oxygen Flow Rate 4 Sepsis Recent Fever Within 48 Hours Sepsis New/Unexplained Change in Mental Status Sepsis Action Taken by Nursing Laboratory Data 09/13/25 20:50 09/13/25 20:50 Lab Results 09/13/25 Range/Units 20:50 WBC 4.72 L (4.8-10.8) K/ul RBC 4.84 (4.70-6.10) M/uL Hgb 13.8 L (14.0-18.0) g/dl Hct 40.3 L (42.0-52.0) % MCV 83.3 (80.0-100.0) fL MCH 28.5 (25.0-34.0) pg MCHC 34.2 (32.0-36.0) g/dL RDW Std Deviation 43.3 (36.4-46.3) fL RDW Coeff of Yanira 14.4 (11.5-14.5) % Plt Count 129 L (130-400) K/uL MPV 9.5 (9.4-12.4) fL Immature Gran % (Auto) 0.2 % Neut % (Auto) 32.4 % Lymph % (Auto) 54.7 % [place] % (Auto) 8.7 % Eos % (Auto) 3.2 % Baso % (Auto) 0.8 % Neut # (Auto) 1.53 (1.40-6.50) K/uL Lymph # (Auto) 2.58 (1.20-3.40) K/uL [place] # (Auto) 0.41 (0.11-0.59) K/uL Eos # (Auto) 0.15 (0.00-0.50) K/uL Baso # (Auto) 0.04 (0.00-0.20) K/uL Immature Gran # (Auto) 0.01 (0.01-0.20) K/uL Platelet Estimate Decreased L (Normal) Sodium 139 (136-145) mmol/L Potassium 2.7 L (3.5-5.1) mmol/L Chloride 104 (98-107) mmol/L Carbon Dioxide 24 (21-32) mmol/L Anion Gap 11 (3-11) BUN 3 L (6-23) mg/dl Creatinine 1.21 (0.6-1.4) mg/dl Est Cr Clr Drug Dosing 81.0 ml/min eGFR 69.84 BUN/Creatinine Ratio 2.5 L (10-20) Glucose 189 H (70-99(Fasting)) mg/dl Calcium 9.5 (8.6-10.3) mg/dl Magnesium 1.3 L (1.7-2.4) mg/dl Total Bilirubin 1.2 H (0.2-1.0) mg/dl AST 76 H (13-39) U/L ALT 41 (7-52) U/L Alkaline Phosphatase 43 (34-104) U/L Troponin I High Sens 5.1 (0-20) pg/ml Total Protein 6.1 (6.0-8.3) gm/dl Albumin 3.7 (3.4-5.0) gm/dl Globulin 2.4 L (2.5-4.0) gm/dl Albumin/Globulin Ratio 1.5 (0.9-2) Lipase 53 (11-82) U/L Valproic Acid < 10 L (50-100) mcg/ml Administered Medications Discontinued Medications Sodium Chloride (Nss) 1,000 mls @ 999 mls/hr IV .Q1H1M ONE Stop: 09/13/25 21:45 Last Admin: 09/13/25 21:04 Dose: 999 mls/hr Documented By: CARISSA Magnesium Sulfate/Dextrose (Magnesium Sulfate / D5w) 1 gm in 100 mls @ 100 mls/hr IV Q1H OBDULIO Stop: 09/13/25 22:49 Last Admin: 09/13/25 22:17 Dose: 100 mls/hr Documented By: Infusion: 09/13/25 22:01 Dose: Infused Documented By: Admin: 09/13/25 21:01 Dose: 100 mls/hr Documented By: CARISSA Potassium Chloride (K Jonathan / Wtr) 10 meq in 100 mls @ 100 mls/hr IV ONE ONE Stop: 09/13/25 22:26 Last Admin: 09/13/25 22:32 Dose: 100 mls/hr Documented By: CARISSA Levetiracetam (Levetiracetam 500 Mg/5 Ml Vial) 2,000 mg IV NOW STA Stop: 09/13/25 21:26 Last Admin: 09/13/25 22:31 Dose: 2,000 mg Documented By: CARISSA Lorazepam (Lorazepam 1 Mg/1 Ml Syr Ed Inj Use) 1 mg IV ONE STA Stop: 09/13/25 20:46 Last Admin: 09/13/25 21:00 Dose: 1 mg Documented By: CARISSA Potassium Chloride (Potassium Chloride Crtab 20 Meq Tabcr) 40 meq PO NOW STA Stop: 09/13/25 21:28 Last Admin: 09/13/25 22:31 Dose: 40 meq Documented By: CARISSA Imaging Data Radiologist's Impression: Chest X-Ray 09/13/25 20:45 Exam(s): XR CXR 1 VIEW EXAM: XR Chest, 1 View CLINICAL HISTORY: Reason for exam: Chest pain, nonspecific. TECHNIQUE: Frontal view of the chest. COMPARISON: No relevant prior studies available. FINDINGS: Lungs: No consolidation. No overt edema. Pleural space: No pleural effusion. No pneumothorax. Heart: Unremarkable. No cardiomegaly. Tubes, lines and devices: Cardiac loop recorder device in place. IMPRESSION: No acute findings in the chest. Electronically signed by: Brandon Torres MD 09/13/25 21:[address] 09/13/25 20:45 Exam(s): CT HEAD Without Contrast EXAM: CT Head Without Intravenous Contrast CLINICAL HISTORY: Reason for exam: seizure. TECHNIQUE: Axial computed tomography images of the head/brain without intravenous contrast. Automated exposure control was utilized for the study. A dose lowering technique was utilized adhering to the principles of ALARA. COMPARISON: Head CT 07/12/2025. FINDINGS: Brain: No hemorrhage, extra-axial fluid collection, mass effect, or edema. Ventricles: Unremarkable. Bones/joints: Unremarkable. No fracture. Soft tissues: Unremarkable. Sinuses: No acute sinusitis. Mastoid air cells: Unremarkable as visualized. IMPRESSION: 1. No acute intracranial abnormality. Electronically signed by: Brandon Torres MD 09/13/25 22:37 PM Discharge Plan Visit Data Chief Complaint: Seizure Stated Complaint: SEIZURE ED Provider: James Estrada Discharge Problem: Atrial tachycardia, Hypomagnesemia, Prolonged QT interval syndrome, Acute hypokalemia Condition: Fair Forms Stand Alone Forms: [employer] Prescriptions Prescriptions: No Action fluticasone propionate [Flonase Allergy Relief] 50 mcg/actuation spray,suspension 1 spray intranasal HS PRN (Reason: allergy symptoms) Qty: 16 0RF Rx Instructions: administer into each nostril (DME) OneTouch Verio test strips Strip See Rx Instructions .MEDSUPPLY Qty: 150 5RF Rx Instructions: check blood sugars 4 times a day (DME) blood-glucose meter [OneTouch Verio Reflect Meter] Misc See Rx Instructions miscellaneous .MEDSUPPLY Qty: 1 0RF Rx Instructions: As directed (DME) lancets [OneTouch Delica Plus Lancet] 33 gauge misc See Rx Instructions .MEDSUPPLY Qty: 150 5RF Rx Instructions: As directed check blood sugars 4 times a day (DME) Oxygen Home Liters Per Minute See Rx Instructions .Route Rx Instructions: 4 L o2 via [place] As directed, cholecalciferol (vitamin D3) 50 mcg (2,000 unit) capsule 50 mcg PO QPM Qty: 90 1RF (DME) FreeStyle Rosalie 2 Sensor Kit See Rx Instructions .Route Qty: 6 3RF Rx Instructions: Change every 14 days desmopressin 0.2 mg tablet 0.4 mg PO BID Qty: 120 5RF (DME) FreeStyle Rosalie 2 Plus Sensor Device See Rx Instructions .Route Qty: 6 3RF Rx Instructions: change every 15 days dutasteride 0.5 mg capsule 0.5 mg PO QAM Qty: 90 2RF propranolol 120 mg capsule,extended release 24hr 120 mg PO HS Qty: 90 3RF docusate sodium 100 mg capsule 100 mg PO BID 30 Days Qty: 60 1RF ferrous sulfate 325 mg (65 mg iron) tablet 650 mg PO Q OTHER DAY 30 Days Qty: 30 0RF Rx Instructions: you can take this every other day - it works just as well and causes fewer bowel problems ascorbic acid (vitamin C) 250 mg tablet 250 mg PO BID Qty: 60 2RF oxycodone-acetaminophen [Percocet] 5-325 mg tablet 1 tab PO Q6H PRN (Reason: very severe pain only) 30 Days Qty: 120 0RF ondansetron 8 mg tablet,disintegrating 8 mg PO Q8H PRN (Reason: nausea and vomiting) Qty: 90 1RF (DME) FreeStyle Rosalie 2 [place] Misc See Rx Instructions .Route Qty: 1 0RF Rx Instructions: Check blood glucose before each meal mirtazapine [Remeron] 30 mg tablet 30 mg PO HS prazosin 5 mg capsule 7 mg PO HS Rx Instructions: take a total of 7 mg (DME) nebulizers [Compact Compressor Nebulizer] Misc See Rx Instructions .Route Qty: 1 0RF Rx Instructions: One compact compressor nebulizer. Use as directed. Please include tubing, mouth piece and cup. ipratropium-albuterol 0.5 mg-3 mg(2.5 mg base)/3 mL solution for nebulization 3 ml inhalation QID PRN (Reason: wheezing) Qty: 90 0RF albuterol sulfate [Ventolin HFA] 90 mcg/actuation HFA aerosol inhaler 2 inh inhalation Q6H PRN (Reason: shortness of breath or wheezing) Qty: 6.7 2RF arformoterol [Brovana] 15 mcg/2 mL solution for nebulization 2 ml inhalation BID Qty: 120 7RF budesonide 0.5 mg/2 mL suspension for nebulization 0.5 mg inhalation BID Qty: 60 7RF hydrocortisone 10 mg tablet 10 mg PO QPM Rx Instructions: 2 tabs (20mg) in AM, 1 tab (10mg) in PM double dose in times of stress magnesium oxide 400 mg (241.3 mg magnesium) tablet 400 mg PO HS Hold Instructions: hold until diarrhea resolved - magnesium supplement can cause diarrhea sodium chloride 7 % solution for nebulization 1 inh inhalation BID Qty: 240 3RF acetylcysteine 200 mg/mL (20 %) solution 2 ml inhalation BID PRN (Reason: Chest congestion) Qty: 100 6RF insulin glargine [Lantus Solostar U-100 Insulin] 100 unit/mL (3 mL) insulin pen 10 unit SUBCUT HS Qty: 15 0RF Hold Instructions: Has been on hold for a few weeks per pt Rx Instructions: Per Dr. Linares last pt last spoke w. him. Baqsimi 3 mg/actuation spray,non-aerosol 3 mg intranasal ONCE PRN (Reason: Severe Hypoglycemia) Rx Instructions: for treatment of severe hypoglycemia, second dose may be given if patient does not respond after 15 minutes . Per caregiver, pt has never has to use this medication. vitamin B complex [Vitamins B Complex] Capsule 1 cap PO QAM Qty: 30 0RF venlafaxine 150 mg capsule,extended release 24hr 150 mg PO QAM quetiapine 50 mg tablet extended release 24 hr 50 mg PO QAM Norditropin FlexPro 5 mg/1.5 mL (3.3 mg/mL) pen injector 3 mg SQ QPM divalproex 500 mg tablet extended release 24 hr 500 mg PO QAM naloxone [Narcan] 4 mg/actuation spray,non-aerosol 1 spray intranasal ONCE PRN (Reason: opioid overdose) Qty: 2 2RF hydrocortisone 10 mg tablet 20 mg PO QAM Rx Instructions: 2 tabs (20mg) in AM, 1 tab (10mg) in PM double dose in times of stress clopidogrel 75 mg tablet 75 mg PO QPM famotidine 20 mg tablet 20 mg PO QAM lisinopril 10 mg tablet 20 mg PO QPM levothyroxine 200 mcg tablet 200 mcg PO QAM ramelteon 8 mg tablet 8 mg PO QPM levetiracetam 1,000 mg tablet 250 mg PO BID lacosamide 150 mg tablet 100 mg PO BID Referrals Referrals: Pro,Larry Crisostomo MD [Primary Care Provider] -
[2025-09-13] MEDS: LORazepam 1 MG/1 ML SYR ED Inj Use IV STA (21:00)
[2025-09-13] MEDS: MAGNESIUM SULFATE / D5W 1 GM/100 ML BAG IV SCH (21:01)
[2025-09-13] MEDS: SODIUM CHLORIDE 0.9% 1,000 ML IV ONE ×2 (21:04→23:47)
--- NOTE | 2025-09-13 21:17 | XRay Report ---
Exam(s): XR CXR 1 VIEW EXAM: XR Chest, 1 View CLINICAL HISTORY: Reason for exam: Chest pain, nonspecific. TECHNIQUE: Frontal view of the chest. COMPARISON: No relevant prior studies available. FINDINGS: Lungs: No consolidation. No overt edema. Pleural space: No pleural effusion. No pneumothorax. Heart: Unremarkable. No cardiomegaly. Tubes, lines and devices: Cardiac loop recorder device in place. IMPRESSION: No acute findings in the chest. Electronically signed by: Brandon Torres MD 09/13/25 21:16 PM
[2025-09-13 21:25] LABS: Alanine Aminotransferase 41.0 U/L (7-52); Albumin Globulin Ratio 1.5 (0.9-2); Albumin Level 3.7 gm/dl (3.4-5.0); Alkaline Phosphatase 43.0 U/L (34-104); Anion Gap 11.0 (3-11); Bilirubin,Total 1.2 mg/dl (0.2-1.0); Blood Urea Nitrogen 3.0 mg/dl (6-23); Calcium 9.5 mg/dl (8.6-10.3); Carbon Dioxide 24.0 mmol/L (21-32); Chloride 104.0 mmol/L (98-107); Creatinine Clr Calc Pharmacy 81.0 ml/min; Globulin 2.4 gm/dl (2.5-4.0); Glucose 189.0 mg/dl (70-99(Fasting)); Lipase 53.0 U/L (11-82); Potassium 2.7 mmol/L (3.5-5.1); Sodium 139.0 mmol/L (136-145); Total Protein 6.1 gm/dl (6.0-8.3)
[2025-09-13 21:44] LABS: Magnesium 1.3 mg/dl (1.7-2.4)
[2025-09-13] MEDS: POTASSIUM CHLORIDE CRTAB 20 MEQ TABCR PO STA (22:31)
[2025-09-13] MEDS: POTASSIUM CHLORIDE / WTR 10 MEQ/100 ML PLCT IV ONE (22:32)
--- NOTE | 2025-09-13 22:37 | CT Scan Report ---
Exam(s): CT HEAD Without Contrast EXAM: CT Head Without Intravenous Contrast CLINICAL HISTORY: Reason for exam: seizure. TECHNIQUE: Axial computed tomography images of the head/brain without intravenous contrast. Automated exposure control was utilized for the study. A dose lowering technique was utilized adhering to the principles of ALARA. COMPARISON: Head CT 07/12/2025. FINDINGS: Brain: No hemorrhage, extra-axial fluid collection, mass effect, or edema. Ventricles: Unremarkable. Bones/joints: Unremarkable. No fracture. Soft tissues: Unremarkable. Sinuses: No acute sinusitis. Mastoid air cells: Unremarkable as visualized. IMPRESSION: 1. No acute intracranial abnormality. Electronically signed by: Brandon Torres MD 09/13/25 22:37 PM
[2025-09-13 22:56] LABS: Hematocrit (blood only) 40.3 % (42.0-52.0); Hemoglobin 13.8 g/dl (14.0-18.0); Immature Granulocytes # (auto) 0.01 K/uL (0.01-0.20); Immature Granulocytes % (auto) 0.2 %; Mean Corpuscular Hemoglobin 28.5 pg (25.0-34.0); Mean Corpuscular Volume 83.3 fL (80.0-100.0); Platelet Count 129 K/uL (130-400); RDW Standard Deviation 43.3 fL (36.4-46.3); Red Blood Count 4.84 M/uL (4.70-6.10); White Blood Count 4.72 K/ul (4.8-10.8)
--- NOTE | 2025-09-13 23:35 | History & Physical Report ---
Date of Service September 13, 2025 Assessment & Plan (1) Medical non-compliance: (2) Acute hypokalemia: (3) Hypomagnesemia: (4) Bipolar disorder: (5) Seizure disorder: Plan The patient is a 55-year-old male with past medical history including seizure disorder, bipolar disorder, medical noncompliance, diabetes insipidus, panhypopituitarism, psychogenic nonepileptic seizure, asthma, seen by palliative care in the past, demyelinating disease, GERD, ulcerative colitis, and depressio n and anxiety. Patient reportedly stopped taking all of his medications 6 days ago, because he did not want to take all the pills. He reportedly had several seizures today, and family arranged for him to come to the emergency department for assessment. The patient is not very cooperative with relaying information related to review of systems or HPI. EMS gave the patient Versed 2 mg and route to the hospital, which stopped tremors. In the emergency department the patient was given Keppra 2000 mg IV, 1 L normal saline x 2, lorazepam 1 mg IV, magnesium 2 g IV, and potassium chloride 40 mill equivalents p.o. and 10 mEq IV. He was then referred for evaluation for [facility]. He was noted to have a potassium of 2.7, magnesium 1.3, glucose 189, AST 76, valproic acid level less than 10. Chest x-ray was normal, and CT scan of the head was normal. Medical noncompliance- Patient stopped all of his medications 6 days ago, reportedly because he did not want to take all the pills. Bipolar disorder/seizure disorder- Patient was given Keppra 2000 mg IV and lorazepam 1 mg IV in ED In the morning will psychiatry to help place patient on his oral dosing of Keppra, divalproex, lacosamide, mirtazapine, prazosin, quetiapine, ramelteon, and venlafaxine. At this point, patient does not want to take any more pills. Electrolyte disturbances/hypokalemia/hypomagnesemia- Potassium 2.7, has been written for Klor-Con 40 mill equivalents p.o. and potassium chloride 10 mill equivalents IV by the ED Hypomagnesemia magnesium 1.3, has been written for magnesium sulfate 2 g IV by the ED Repeat laboratories in the a.m. Further treatment can occur with drug supplementation as needed, and indirectly by optimizing his medication regimen for panhypopituitarism, diabetes insipidus, and diabetes mellitus. Diabetes insipidus/panhypopituitarism- Is supposed to be on hydrocortisone 20 mg in the morning and 10 mg in the evening Will place him on hydrocortisone 100 mg IV every 8 hours with first dose now Will start desmopressin in the a.m. Asthma- For tonight placed him on DuoNebs every 2 hours as needed Can attempt to place him on his usual inhalers /nebulizers in the a.m. Diabetes mellitus- Glucose 189 on admission Hold glargine Placed on Accu-Cheks with NovoLog SSI History of Present Illness Chief Complaint: The patient is referred to the emergency department due to seizures Primary Care Provider: Larry Amaral MD The patient is a 55-year-old male with past medical history including seizure disorder, bipolar disorder, medical noncompliance, diabetes insipidus, panhypopituitarism, psychogenic nonepileptic seizure, asthma, seen by palliative care in the past, demyelinating disease, GERD, ulcerative colitis, and depression and anxiety. Patient reportedly stopped taking all of his medicat ions 6 days ago, because he did not want to take all the pills. He reportedly had several seizures today, and family arranged for him to come to the emergency department for assessment. The patient is not very cooperative with relaying information related to review of systems or HPI. EMS gave the patient Versed 2 mg and route to the hospital, which stopped tremors. In the emergency department the patient was given Keppra 2000 mg IV, 1 L normal saline x 2, lorazepam 1 mg IV, magnesium 2 g IV, and potassium chloride 40 mill equivalents p.o. and 10 mEq IV. He was then referred for evaluation for admission to the [facility]. He was noted to have a potassium of 2.7, magnesium 1.3, glucose 189, AST 76, valproic acid level less than 10. Chest x- ray was normal, and CT scan of the head was normal. Allergies Allergy/AdvReac Type Severity Reaction Status Date / Time clindamycin Allergy Intermediate SWELLING Verified 09/11/25 11:02 Iodinated Contrast Media Allergy Intermediate face/eye Verified 09/11/25 11:02 swelling Quinolones Allergy Intermediate HIVES Verified 09/11/25 11:02 tomato Allergy Intermediate swelling Verified 09/11/25 11:02 metformin AdvReac Unknown lactic Verified 09/11/25 11:02 acidosis Home Medications Medication Instructions Recorded Confirmed Type mirtazapine 30 mg tablet (Remeron) 30 mg PO HS 06/23/22 09/14/25 History fluticasone propionate 50 1 spray intranasal HS PRN allergy 03/16/23 09/14/25 Rx mcg/actuation nasal symptoms #16 grams spray,suspension (Flonase Allergy Relief) FreeStyle Rosalie 2 [place] (flash #1 ea 05/13/23 09/05/25 Rx glucose scanning reader) blood sugar diagnostic (OneTouch #150 ea 11/22/23 09/05/25 Rx Verio test strips) blood-glucose meter (OneTouch #1 ea 11/22/23 09/05/25 Rx Verio Reflect Meter) lancets 33 gauge (OneTouch Delica #150 ea 11/22/23 09/05/25 Rx Plus Lancet) glucagon 3 mg/actuation nasal 3 mg intranasal ONCE PRN Severe 04/06/24 09/14/25 History spray (Baqsimi) Hypoglycemia ipratropium 0.5 mg-albuterol 3 mg 3 ml inhalation QID PRN wheezing 07/31/24 09/14/25 Rx (2.5 mg base)/3 mL nebulization #90 mL soln nebulizers (Compact Compressor #1 ea 07/31/24 09/05/25 Rx Nebulizer) vitamin B complex (Vitamins B 1 cap PO QAM #30 caps 10/26/24 09/11/25 Rx Complex capsule) Oxygen Home 01/30/25 09/05/25 History magnesium oxide 400 mg (241.3 mg 400 mg PO HS 03/01/25 09/14/25 History magnesium) tablet quetiapine 50 mg tablet,extended 50 mg PO QAM 03/19/25 09/14/25 History release 24 hr venlafaxine 150 mg 300 mg PO QAM 03/19/25 09/14/25 History capsule,extended release 24 hr acetylcysteine 200 mg/mL (20 %) 2 ml inhalation BID PRN Chest 03/26/25 09/14/25 Rx solution congestion #100 mL cholecalciferol (vitamin D3) 50 50 mcg PO QPM #90 caps 03/26/25 09/14/25 Rx mcg (2,000 unit) capsule sodium chloride 7 % for 1 inh inhalation BID #240 mL 03/26/25 09/14/25 Rx nebulization prazosin 5 mg capsule 5 mg PO HS 04/05/25 09/14/25 History FreeStyle Rosalie 2 Sensor (flash #6 ea 05/06/25 09/05/25 Rx glucose sensor) desmopressin 0.2 mg tablet 0.4 mg (2 x 0.2 mg) PO BID #120 05/16/25 09/14/25 Rx tabs naloxone 4 mg/actuation nasal 1 spray intranasal ONCE PRN opioid 05/18/25 09/14/25 Rx spray (Narcan) overdose #2 ea somatropin 5 mg/1.5 mL (3.3 mg/mL) 3 mg subcut QPM 05/29/25 09/14/25 History subcutaneous pen injector (Norditropin FlexPro) FreeStyle Rosalie 2 Plus Sensor #6 ea 06/04/25 09/05/25 Rx (blood-glucose sensor) hydrocortisone 10 mg tablet 10 mg PO QPM 06/13/25 09/14/25 History dutasteride 0.5 mg capsule 0.5 mg PO QAM #90 caps 06/19/25 09/14/25 Rx albuterol sulfate 90 mcg/actuation 2 inh inhalation Q6H PRN shortness 07/01/25 09/14/25 Rx aerosol inhaler (Ventolin HFA) of breath or wheezing #6.7 grams arformoterol 15 mcg/2 mL solution 2 ml inhalation BID #120 mL 07/01/25 09/14/25 Rx for nebulization (Brovana) budesonide 0.5 mg/2 mL suspension 0.5 mg (2 mL) inhalation BID #60 mL 07/01/25 09/14/25 Rx for nebulization hydrocortisone 10 mg tablet 20 mg PO QAM 07/02/25 09/14/25 History clopidogrel 75 mg tablet 75 mg PO QPM 08/06/25 09/14/25 History famotidine 20 mg tablet 20 mg PO QAM 08/06/25 09/14/25 History lacosamide 150 mg tablet 150 mg PO BID 08/06/25 09/14/25 History levetiracetam 1,000 mg tablet 250 mg PO BID 08/06/25 09/14/25 History levothyroxine 200 mcg tablet 200 mcg PO QAM 08/06/25 09/14/25 History lisinopril 10 mg tablet 20 mg PO QPM 08/06/25 09/14/25 History ramelteon 8 mg tablet 8 mg PO QPM 08/06/25 09/14/25 History propranolol 120 mg capsule,24 120 mg PO HS #90 caps 08/12/25 09/14/25 Rx hr,extended release docusate sodium 100 mg capsule 100 mg PO BID 30 days #60 caps 08/13/25 09/11/25 Rx ascorbic acid (vitamin C) 250 mg 250 mg PO BID #60 tabs 08/30/25 09/14/25 Rx tablet oxycodone-acetaminophen 5 mg-325 1 tab PO Q6H PRN very severe pain 09/04/25 09/14/25 Rx mg tablet (Percocet) only 1 month #120 tabs ondansetron 8 mg disintegrating 8 mg PO Q8H PRN nausea and 09/10/25 09/14/25 Rx tablet vomiting #90 tabs divalproex 500 mg tablet,extended 1,000 mg PO QAM 09/11/25 09/14/25 History release 24 hr ferrous sulfate 325 mg (65 mg 325 mg PO BID 09/14/25 09/14/25 History iron) tablet insulin glargine 100 unit/mL (3 12 unit subcut HS 09/14/25 09/14/25 History mL) subcutaneous pen (Lantus Solostar U-100 Insulin) Past Med/Surg History Problem List (Updated 09/14/25 @ 03:52 by Krishna Ronquillo MD) Medical non-compliance Acute hypokalemia (Acute) Prolonged QT interval syndrome (Acute) Hypomagnesemia (Acute) Atrial tachycardia (Acute) Decreased appetite (Acute) Calcium nephrolithiasis (Chronic) Bipolar disorder (Acute) Seizure disorder Urgency of urination Diabetes insipidus Muscular deconditioning Hyponatremia Dizziness (Acute) Abrasion of knee (Acute) Chronic anemia (Acute) Hypomagnesemia (Acute) Hyperphosphatemia (Acute) Vision loss, left eye Entered 05/2025 Hypopituitarism Psychogenic nonepileptic seizure Asthma Intractable back pain (Acute) Encounter for preoperative assessment (Acute) Numbness of right foot Palliative care by specialist (Chronic) DO NOT DELETE. 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 tested positive in Aug 2023 [place] Current use of proton pump inhibitor Chronic migraine without aura or status migrainosus Ulcerative colitis Mixed hyperlipidemia Lumbar stenosis with neurogenic claudication Pseudoseizures Lumbosacral radiculopathy Idiopathic polyneuropathy Essential tremor Mitral regurgitation Depression Anxiety (Chronic) Hx of hematuria Hematochezia History of dysphagia Anti-cyclic citrullinated peptide antibody positive Abnormal PFTs (pulmonary function tests) Internal hemorrhoids Prostate mass benign Family history of BRCA gene mutation Medical History Adrenal insufficiency On hydrocortisone Arachnoid cyst of posterior cranial fossa Benign congenital arachnoid cyst in the posterior fossa per 01/2025 brain MRI Atrial fibrillation (02/15/24) no cardioversion- has loop recorder and watchmans device, follows with dr. kilgore (will see 09/18/25) Back pain at L4-L5 level will see [facility] surgeon on 09/13/25 Bilateral hand pain Bipolar 1 disorder Bladder mass benign Blood loss anemia (06/2025) admit to [facility], required blood transfusion BPH with obstruction/lower urinary tract symptoms Cerebral concussion May 2023 during seizure > no further issues CHF (congestive heart failure) EF WNL on 10/2024 ECHO CHI (closed head injury) reports multiple due to seizures/falls Chronic left sacroiliac pain Chronic narcotic dependence Chronic respiratory failure with hypoxia O2 4L nc Chronic venous insufficiency CKD (chronic kidney disease), stage III follows with neph- dr. espinoza (will see 10/2025) Closed fracture of right fibula with malunion will see [facility] surgeon on 09/13/25- wears boot daily Compartment syndrome of lower extremity (02/2025) per hx COPD (chronic obstructive pulmonary disease) follows with dr. mccarthy (last seen april 2025)- well controlled with nebs/inhaler- last used rescue inhaler jun 2025- wears O24L at all times Demyelinating disease Depression with anxiety Epidural lipomatosis Essential tremor Frequent falls most recent- last week, states "im very sore" - states will see pcp dr. amaral on 09/13/25 Generalized pain Generalized weakness Growth hormone deficiency on medication (treated with growth hormone per endocrine) History of COVID-19 10/2021 - fatigue; resolved. History of pneumonia (03/2025) states has been admitted for total of 36 days ytd at [facility] for pneumonia History of recent hospitalization reports has been admitted to hospital over 100 days in 2024- last was at [facility] 06/2025- all at [facility] HTN (hypertension) Hyperactive gag reflex Hyperphosphatemia Hypokalemia Hypomagnesemia Hypothyroidism Central hypothyroidism Idiopathic polyneuropathy Kidney stones no current pain Lower extremity edema LPRD (laryngopharyngeal reflux disease) Lumbar stenosis with neurogenic claudication Migraine Mitral valve regurgitation follows with Dr. 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 on medication (DDAVP) follows with endocrine Pituitary hypogonadism Follows with endocrinology- Pituitary neoplasm Dx'ed in 2001- s/p surgical resection and XRT Repeat surgery in 2018 secondary to tumor regrowth at [facility] - Follows with endo- repeat pituitary MRI scheduled 2027 Presence of cardiac device Loop recorder > placed at [facility]- last checked fall 2023 PTSD (post-traumatic stress disorder) Rectal bleeding on occasion Recurrent seizures - PNES per records goes sometimes months without seizures, then may may have 2 in one day- last seizure-June 2025- grand mal- follows with dr. villa (07/2025) Restrictive lung disease follows with dr. mccarthy, on O2 4L nc at all times Right leg pain had seizure 09/2024 "that messed up my back and leg" pt reports will go to [facility] on 09/13/25 to see a neurosurgeon Right lumbar radiculopathy Secondary adrenal insufficiency Sensorineural hearing loss of both ears Shortness of breath only if not wearing oxygen Spondylolysis, lumbar region Syncope and collapse Reason for loop recorder No recent issues since bed bound from femur fracture in Sep 2022 per patient Therapeutic opioid-induced constipation (OIC) Transient alteration of awareness Ulcerative colitis Uncontrolled type 2 diabetes mellitus with hyperglycemia Suspect low glycation index meaning his A1c is typically about 2 points lower than what his average glucose would suggest. Urinary tract obstruction due to kidney stone Vertigo Surgical History History of arthroplasty of left knee (2014) History of bladder surgery remove mass History of brain surgery (2017) x2---2004 @ [facility] [place], 2018 @ [facility]--for brain tumors > caused epilepsy History of cardiac cath (07/2021) 07/2021 - no stents- no mi - [facility]- follows with dr. kilgore History of colonoscopy History of esophagogastroduodenoscopy (EGD) History of lithotripsy History of lumbar fusion (07/2022) [facility] Jul 2022 - History of open reduction and internal fixation (ORIF) procedure (2009) right 5th metatarsal, has pins and cadaver bone, still gets painful- 2009 right femur- as a child History of prostate surgery (2016) remove mass- not malignant History of tooth extraction History of wisdom tooth extraction Hx of flexible sigmoidoscopy (07/03/25) Presence of Watchman left atrial appendage closure device (02/2024) eric S/P epidural steroid injection S/P TURP (status post transurethral resection of prostate) Family History Grandmother (Paternal) Family history of diabetes mellitus Aunt Family history of diabetes mellitus Uncle Family history of diabetes mellitus Father , at 85 years of age from dementia. Prostate cancer Heart disease Osteoarthritis Mother , at 84 years of age from acute MS. Cardiac disorder Grandmother (Maternal) Myocardial infarction Other Asthma Cancer Hypertension No family history of adverse response to anesthesia No family history of bleeding disorder Stroke Denies family history of Ovarian cancer Breast cancer Colorectal cancer Social History Smoking Status: Never smoker Tobacco Type: Smokeless Tobacco (Dip or Chew) Second Hand Exposure: No; Do You Dip or Chew Tobacco: Yes (chews daily (advised)); Hx Alcohol Use: No Hx Substance Use: No Preferred Language: [place] Communication Ability: Effective Communication Ability Comment: Unable to obtain due to patient condition. Visual Impairment: Limited Hearing Ability: Normal Balance Bridge Inspector Required: No Beliefs That Will Affect Care: None marital status: Single Current Living Situation: Family Current Living Situation Comment: and daughter in [place] current occupational status: disabled How many Children do You have: 3 How many Children do You have Comment: able to assist with care if needed Feels Safe at Home: Yes Childhood Exposure to Second-Hand Smoke: Yes (parents smoked) Diet: regular Diet Comment: going to be starting low carb/low calorie diet. caffeine: No (1/2 20 oz bottle of mountain dew. ) during the past year weight has: increased > 10 lbs Physical Activity Frequency: Daily Physical Activity Frequency Comment: walking, 1.5 miles daily. Seatbelt Use: always Do you think of yourself as: straight/heterosexual Gender Identity: Male Assistive Devices: Cane, CPAP, Nebulizer, Oxygen - Continuous and Other Review of Systems Review of Systems: As noted above, patient was not cooperative with contributing to HPI or review of systems Physical Exam Physical Exam: The patient is awake, intermittently agitated, normocephalic and atraumatic, lying in bed and in no acute distress. HEENT--PERRL, EOMI, mucous membranes and oropharynx dry. Neck--supple. No JVD. No bruits. Thyroid normal, trachea midline, no adenopathy. Heart--mildly tachycardic and regular. No murmurs, rubs or gallops. Lungs--clear bilaterally, no respiratory distress, no accessory muscle use. Abdomen--normal bowel sounds and soft. Nontender. Nondistended. Obese Extremities--No edema. There are good distal pulses b/l. Dermatologic--skin is mildly dry Neurologic--cranial nerves II through XII grossly intact. Rheumatologic--limited exam Psychiatric--mildly confused/agitated Results & Data Results & Data Vital Signs (Past 12 Hours) Vital Signs Temp Pulse Pulse Resp BP BP Pulse Ox 09/13/25 22:41 129 H 18 96/70 L 95 09/13/25 20:45 99 09/13/25 20:45 36.8 C 131 H 20 121/78 99 09/13/25 20:44 134 H O2 Del Method O2 Flow Rate 09/13/25 22:41 4 09/13/25 20:45 Nasal Cannula 4 09/13/25 20:45 Nasal Cannula 4 09/13/25 20:44 Laboratory Results Laboratory Results WBC 4.72 K/ul (4.8-10.8) L 09/13/25 20:50 RBC 4.84 M/uL (4.70-6.10) 09/13/25 20:50 Hgb 13.8 g/dl (14.0-18.0) L 09/13/25 20:50 Hct 40.3 % (42.0-52.0) L 09/13/25 20:50 MCV 83.3 fL (80.0-100.0) 09/13/25 20:50 MCH 28.5 pg (25.0-34.0) 09/13/25 20:50 MCHC 34.2 g/dL (32.0-36.0) 09/13/25 20:50 RDW Std Deviation 43.3 fL (36.4-46.3) 09/13/25 20:50 RDW Coeff of Yanira 14.4 % (11.5-14.5) 09/13/25 20:50 Plt Count 129 K/uL (130-400) L 09/13/25 20:50 MPV 9.5 fL (9.4-12.4) 09/13/25 20:50 Immature Gran % (Auto) 0.2 % 09/13/25 20:50 Neut % (Auto) 32.4 % 09/13/25 20:50 Lymph % (Auto) 54.7 % 09/13/25 20:50 [place] % (Auto) 8.7 % 09/13/25 20:50 Eos % (Auto) 3.2 % 09/13/25 20:50 Baso % (Auto) 0.8 % 09/13/25 20:50 Neut # (Auto) 1.53 K/uL (1.40-6.50) 09/13/25 20:50 Lymph # (Auto) 2.58 K/uL (1.20-3.40) 09/13/25 20:50 [place] # (Auto) 0.41 K/uL (0.11-0.59) 09/13/25 20:50 Eos # (Auto) 0.15 K/uL (0.00-0.50) 09/13/25 20:50 Baso # (Auto) 0.04 K/uL (0.00-0.20) 09/13/25 20:50 Immature Gran # (Auto) 0.01 K/uL (0.01-0.20) 09/13/25 20:50 Platelet Estimate Decreased (Normal) L 09/13/25 20:50 D-Dimer 360 ug/L FEU (0-500) 09/13/25 20:50 Sodium 139 mmol/L (136-145) 09/13/25 20:50 Potassium 2.7 mmol/L (3.5-5.1) L 09/13/25 20:50 Chloride 104 mmol/L (98-107) 09/13/25 20:50 Carbon Dioxide 24 mmol/L (21-32) 09/13/25 20:50 Anion Gap 11 (3-11) 09/13/25 20:50 BUN 3 mg/dl (6-23) L 09/13/25 20:50 Creatinine 1.21 mg/dl (0.6-1.4) 09/13/25 20:50 Est Cr Clr Drug Dosing 81.0 ml/min 09/13/25 20:50 eGFR 69.84 09/13/25 20:50 BUN/Creatinine Ratio 2.5 (10-20) L 09/13/25 20:50 Glucose 189 mg/dl (70-99(Fasting)) H 09/13/25 20:50 Calcium 9.5 mg/dl (8.6-10.3) 09/13/25 20:50 Magnesium 1.3 mg/dl (1.7-2.4) L 09/13/25 20:50 Total Bilirubin 1.2 mg/dl (0.2-1.0) H 09/13/25 20:50 AST 76 U/L (13-39) H 09/13/25 20:50 ALT 41 U/L (7-52) 09/13/25 20:50 Alkaline Phosphatase 43 U/L (34-104) 09/13/25 20:50 Troponin I High Sens 5.1 pg/ml (0-20) 09/13/25 20:50 Total Protein 6.1 gm/dl (6.0-8.3) 09/13/25 20:50 Albumin 3.7 gm/dl (3.4-5.0) 09/13/25 20:50 Globulin 2.4 gm/dl (2.5-4.0) L 09/13/25 20:50 Albumin/Globulin Ratio 1.5 (0.9-2) 09/13/25 20:50 Lipase 53 U/L (11-82) 09/13/25 20:50 Valproic Acid < 10 mcg/ml (50-100) L 09/13/25 20:50 Impressions Chest X-Ray 09/13/25 20:45 Exam(s): XR CXR 1 VIEW EXAM: XR Chest, 1 View CLINICAL HISTORY: Reason for exam: Chest pain, nonspecific. TECHNIQUE: Frontal view of the chest. COMPARISON: No relevant prior studies available. FINDINGS: Lungs: No consolidation. No overt edema. Pleural space: No pleural effusion. No pneumothorax. Heart: Unremarkable. No cardiomegaly. Tubes, lines and devices: Cardiac loop recorder device in place. IMPRESSION: No acute findings in the chest. Electronically signed by: Brandon Torres MD 09/13/25 21:[address] 09/13/25 20:45 Exam(s): CT HEAD Without Contrast EXAM: CT Head Without Intravenous Contrast CLINICAL HISTORY: Reason for exam: seizure. TECHNIQUE: Axial computed tomography images of the head/brain without intravenous contrast. Automated exposure control was utilized for the study. A dose lowering technique was utilized adhering to the principles of ALARA. COMPARISON: Head CT 07/12/2025. FINDINGS: Brain: No hemorrhage, extra-axial fluid collection, mass effect, or edema. Ventricles: Unremarkable. Bones/joints: Unremarkable. No fracture. Soft tissues: Unremarkable. Sinuses: No acute sinusitis. Mastoid air cells: Unremarkable as visualized. IMPRESSION: 1. No acute intracranial abnormality. Electronically signed by: Brandon Torres MD 09/13/25 22:37 PM Code Status & VTE Plan Code Status Full code VTE Prophylaxis Plan VTE Prophylaxis will be ordered: Yes PG Care Time/CCT Total # of Minutes Spent Total Time Spent with Patient: Total time spent is greater than 50% in coordination of care (as documented) at patient's floor/unit and/or counseling patient: Coding Level of Care Code 12727 INT INP/OBS CARE MIN Diagnoses Medical non-compliance Z91.199 Acute hypokalemia E87.6 Hypomagnesemia E83.42 Bipolar disorder F31.9 Seizure disorder G40.909
[2025-09-14] MEDS: HYDROCORTISONE SOD 100 MG in SYRINGE 0 ML IV SCH (01:22)
[2025-09-14] MEDS ORDERED: GLUCOSE 10 TAB/TUBE PO PRN (01:43)
[2025-09-14] MEDS ORDERED: CARBOHYDRATES FOR HYPOGLYCEMIA PO PRN (01:43)
[2025-09-14] MEDS ORDERED: GLUCAGON FOR INJ 1 MG VIAL SQ PRN (01:43)
[2025-09-14] MEDS ORDERED: ALBUT/IPRATROP 3MG/0.5MG NEB 3 ML VIAL NEB PRN (01:43)
[2025-09-14] MEDS ORDERED: ACETAMINOPHEN 325 MG TAB PO PRN (01:43)
[2025-09-14] MEDS ORDERED: DEXTROSE 50% 50 ML SYRINGE IV PRN (01:43)
[2025-09-14] MEDS ORDERED: GLUCOSE 40% GEL 15 GM TUBE PO PRN (01:43)
[2025-09-14] MEDS: PLASMA-LYTE A 1,000 ML IV SCH (01:56)
[2025-09-14 04:59] LABS: Hematocrit (blood only) 35.8 % (42.0-52.0); Hemoglobin 12.4 g/dl (14.0-18.0); Immature Granulocytes # (auto) 0.00 K/uL (0.01-0.20); Immature Granulocytes % (auto) 0.0 %; Mean Corpuscular Hemoglobin 28.6 pg (25.0-34.0); Mean Corpuscular Volume 82.5 fL (80.0-100.0); Platelet Count 120 K/uL (130-400); RDW Standard Deviation 43.9 fL (36.4-46.3); Red Blood Count 4.34 M/uL (4.70-6.10); White Blood Count 3.38 K/ul (4.8-10.8)
[2025-09-14 05:43] LABS: Alanine Aminotransferase 41.0 U/L (7-52); Albumin Globulin Ratio 1.3 (0.9-2); Albumin Level 3.3 gm/dl (3.4-5.0); Alkaline Phosphatase 38.0 U/L (34-104); Anion Gap 10.0 (3-11); Bilirubin,Total 1.0 mg/dl (0.2-1.0); Blood Urea Nitrogen 3.0 mg/dl (6-23); Calcium 8.7 mg/dl (8.6-10.3); Carbon Dioxide 21.0 mmol/L (21-32); Chloride 108.0 mmol/L (98-107); Creatinine Clr Calc Pharmacy 89.1 ml/min; Globulin 2.5 gm/dl (2.5-4.0); Glucose 165.0 mg/dl (70-99(Fasting)); Magnesium 1.7 mg/dl (1.7-2.4); Potassium 3.4 mmol/L (3.5-5.1); Sodium 139.0 mmol/L (136-145); Total Protein 5.8 gm/dl (6.0-8.3)
[2025-09-14] MEDS: INSULIN ASPART PER UNIT CHARGE SC SCH (07:20)
[2025-09-14] MEDS ORDERED: ALBUT/IPRATROP 3MG/0.5MG NEB 3 ML VIAL INH PRN (07:42)
[2025-09-14 08:04] LABS: Hemoglobin A1C 5.2 % (4.5-5.6)
[2025-09-14] MEDS: POTASSIUM CHLORIDE CRTAB 20 MEQ TABCR PO ONE (09:04)
[2025-09-14] MEDS: MAGNESIUM SULFATE / D5W 1 GM/100 ML BAG IV SCH (09:05)
[2025-09-14] MEDS: LEVOTHYROXINE SODIUM 200 MCG TABLET PO SCH (09:05)
[2025-09-14] MEDS: HYDROCORTISONE 10 MG TAB PO SCH ×2 (09:05→17:47)
[2025-09-14] MEDS: BUDESONIDE 0.5 MG/2 ML VIAL (PULMICORT) INH SCH (10:46)
[2025-09-14] MEDS: FORMOTEROL 20 MCG/2 ML VIAL INH SCH (10:46)
[2025-09-14] MEDS: DIVALPROEX EXTENDED RELEASE 500 MG TAB PO SCH (11:01)
[2025-09-14] MEDS: DESMOPRESSIN ACETATE 0.1 MG TAB PO SCH (11:02)
[2025-09-14] MEDS: LACOSAMIDE 50 MG TABLET PO SCH (11:26)
--- NOTE | 2025-09-14 12:55 | Hospitalist Progress Note ---
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 He says that he was awake during the shaking episodes yesterday so it is probable that these were PNES. 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 Today he does not have any active SI and with respect to recently depressed mood he said that he is past that # electrolyte disturbances -severe hypokalemia, hypomagnesemia- treated with IV replacements and resolved. reviewed BMP potassium and magnesium are low normal today this is a consequence of not taking his hydrocortisone and DDAVP # panhypopituitarism - followed by wali humphrey, reviewed last note 08/28 - given stress dose steroids overnight, stop IV hydrocortisone resume oral hydrocortisone cortisone at double normal dosing - resume DDAVP 0.4 mg p.o. twice daily for diabetes insipidus - continue levothyroxine - outpatient growth hormone and testosterone treatment - monitor heart rate, blood pressure, electrolyte- sa.m. BMP and magnesium # PNES, remote epileptic seizures Sounds like exacerbation of PNES - continue oral VPA and Vimpat, levetiracetam currently held pending further discussion with him - resume at bedtime long-acting. propranolol which may help with his tremors - lorazepam IV/po PRN seizures, tremors # pancytopenia - all three cell lines down this am. Possible diluted sample. Recheck in AM. Has had chronic anemia. If persisting most likely medication effect (AEDs) # Diabetes type 2 No longer on metformin because of recurrent lactic acidosis Recently hypoglycemias have been more of the issue - continue glarginge and premeal/correctional aspart. BG this AM 160 # Bipolar disorder and PTSD - sees therapist twice a week. Followed by Dr. Woods - consult inpatient psychiatry. Reordered usual mental health meds # Atrial fibrillation - watchman 02/15/24 - rate controlled with propranolol LA # HTN and HLD - b-benjamín, lisinopril, rosuvastatin # COPD - not in exacerbation -resume budesonide, aformoterol nebs, PRN duonebs # chronic back and R foot/ankle pain -followed in palliative care clinic -continue PRN percocet -planning a R ankle surgery with Dr. Phillips, uses CAM boot when up -seeing regulatory affairs strategy specialist at [facility] this upcoming week # Hx syncope - vasovagal episodes and orthostatic hypotension -reviewed recent loop recorder interrogation 08/19, no events DVT ppx - enox Admission and Anticipated Discharge Date Admission Date: September 13, 2025 Subjective Brad is sleepy/sedated but verbal this morning he says that he had stopped taking all of his medications because he was tired of them he was previously feeling depressed but says "that is over" he does had not gotten around to restarting his medications. He said that he had severe shaking yesterday and that he was awake throughout he was said to have seizures yesterday was treated with 2 mg IV Versed by medics and then 1 mg IV lorazepam by the ED no further episodes since then Physical Exam Physical Exam: PHYSICAL EXAMINATION Last 24h vital signs reviewed, see documentation in flowsheet General: comfortable appearing, no distress HEENT: Normocephalic, atraumatic, pupils round and equal, sclerae anicteric, no conjunctival injection, moist mucus membranes Lungs: Normal respiratory effort. Clear to auscultation bilaterally. No RRW Heart: Regular rate and rhythm, no murmurs. No JVD Abdomen: Soft, nontender, nondistended. Bowel sounds present. Extremities: Warm, dry, well-perfused. No extremity edema. Neuro: sleepy, mildly sedated oriented x 4, face symmetric, moves 4 extremities well Psych: Normal affect and behavior, denied depressed mood right now Results & Data Results & Data Vital Signs (Past 12 Hours) Vital Signs Pulse Pulse Resp BP BP Pulse Ox Pulse Ox 09/14/25 10:10 91 H 20 129/78 91 09/14/25 08:30 94 H 20 131/81 97 09/14/25 07:04 96 H 09/14/25 07:03 98 H 20 134/77 96 09/14/25 04:43 99 H 20 120/74 95 09/14/25 03:35 97 09/14/25 03:00 108 H 22 133/72 96 09/14/25 01:04 118 H 18 108/68 95 09/14/25 00:45 124 H O2 Del Method O2 Del Method O2 Flow Rate O2 Flow Rate 09/14/25 10:10 Room Air 09/14/25 08:30 Room Air 09/14/25 07:04 09/14/25 07:03 Room Air 09/14/25 04:43 Room Air 09/14/25 03:35 Nasal Cannula 4 09/14/25 03:00 09/14/25 01:04 Nasal Cannula 4 09/14/25 00:45 Laboratory Results white blood count 3.3 hemoglobin 12.4 platelets 120 sodium 139 BUN 3 creatinine 1.10 yesterday hypokalemic on arrival at 2.7 now increased to 34, was hypomagnesemia at 1.3 improved to 1.7 VPA level was less than [address] of the head without any acute findings, chest x-ray negative I reviewed the AED levels that were checked by Dr. Ordonez earlier in July, VPA level was on the high side 133, lacosamide 0.5, Keppra 48 which is high end of therapeutic range PG Care Time/CCT Total # of Minutes Spent Total Time Spent with Patient: Total time spent is greater than 50% in coordination of care (as documented) at patient's floor/unit and/or counseling patient: Coding Level of Care Code 26131 SUB INP/OBS CARE 3/50MIN Diagnoses Medical non-compliance Z91.199 Acute hypokalemia E87.6 Hypomagnesemia E83.42 Bipolar disorder F31.9 Seizure disorder G40.909
[2025-09-14] MEDS: LORazepam 1 MG TAB SL PRN (13:04)
[2025-09-14] MEDS: ENOXAPARIN INJ 40 MG/0.4 ML SYR SQ SCH (13:54)
[2025-09-14] MEDS: LORazepam Inj 0.25 MG in SYRINGE 0.125 ML IV STA (16:05)
[2025-09-14] MEDS ORDERED: LORazepam Inj 0.5 MG in SYRINGE 0.25 ML IV PRN (16:12)
--- NOTE | 2025-09-14 16:28 | Psychiatric Consultation ---
Date of Consultation September 14, 2025 Impression / Recommendations Impression Diagnostically consistent with unspecified depressive disorder likely major depressive disorder vs bipolar affective disorder current depressive episode (less likely given no clear history of sj) vs depression 2/2 past TBI/brain surgery vs depression 2/2 physical pain issues. Suspect that his periods of abrupt medication discontinuation and non-adherence are also likely negatively contributing to his mood due to potential for withdrawal side effects. Acute risk of self-harm is low given denial of SI, very future-oriented and hopeful about medical appointments, outpatient providers and strong det errent/reason for living of his . Chronic risk is moderate to high given multiple non-modifiable risk factors (past attempts, past psych hospitalizations, psychiatric co-morbid conditions, periods of impulsivity) but also with some protective factors including marriage, outpatient providers, sense of responsibility to family and social supports, positive coping skills. Counseled on ways to reduce acute and chronic risk including engaging with outpatient providers, finding ways to add purpose and meaning like answering mechanics questions online to help others and use his skill set, utilizing supports, and taking medication. He's interested in minimizing psychiatric medications and po medications as much as possible. Given limited benefit from his medications due to his frequent non-adherence reviewed non-po options. He'd like to switch from prazosin to clonidine TD patch for off-label use for PTSD symptoms and trial po risperidone for mood stabilization and if effective consider option for VEGA. He's willing to consider fluoxetine in the future for depression (reviewed long half-life could make it a good option) but declines starting this now. He prefers not to restart any of his other psychiatric medications. Defer to neurology but would consider discontinuing Depakote given goal of minimizing his polypharmacy and due to elevated AST, low platelets and CBC changes. His QTc is elevated on EKG automatic read but suspect this is falsely elevated due to sinus tachycardia. If QTc is accurate as >500ms then hold risperidone. Overall, I spent a total of 80 minutes with this case including review of chart records, review of labwork, review of EKG QTc, direct evaluation of the patient at bedside, counseling the patient, discussion of the patient with the hospitalist provider, discussion with the psychiatric liason during clinical rounds, review of collateral historian information from the family and documentation in the electronic health record. (1) Bipolar disorder: (2) Depression: (3) PTSD (post-traumatic stress disorder): Plan -Do not restart his prior to admission psychiatric medications that he disc ontinued last week (mirtazapine, prazosin, Seroquel, Effexor) * Start clonidine 0.1mg TD q7 day patch, consider further titration in outpt setting as tolerated If QTc is <500ms then recommend: * Starting risperidone 2mg po daily and if tolerated will consider VEGA tomorrow (his preference) -Counseled he and his on reducing access to lethal means (ensuring guns continue to remain secured and without him having access to his depression) -He signed HELEN for records to be sent to his outpatient psychiatry provider for coordination of care Psych History Identifying Data Waldo Leiva is a 55-year-old man with past medical history including seizure disorder, bipolar disorder, medical noncompliance, diabetes insipidus, panhypopituitarism, psychogenic nonepileptic seizure, asthma, seen by palliative care in the past, demyelinating disease, GERD, ulcerative colitis, and depression and anxiety. Psychiatry consulted for depression, PTSD and stopping his medications for recommendations about which medications to restart. Chief Complaint "I've been having a lot of PTSD memories". History of Present Illness Waldo is known to the consult service and has been seen by our service in the past last in March 2025 and by psychiatric liaison service periodically. He endorses a history of depression and PTSD and possible bipolar disorder though he does not identify any clear history of sj in the past. He states he is here because "I take so many meds and I get tired of taking them and the side effects are worse than the benefits". States he last took his medications a week ago on 09/07/2025. He denies experiencing any significant SNRI withdraw side effects from Effexor but also states this is a newer medication. He cannot identify many specific side effects other than lower appetite and "I just feel blah". He identifies symptoms of depression including feeling worthless and not having a purpose and feeling like a burden at times for his family. He endorses sometimes having passive suicidal thoughts of wanting to but states he would never act on these thoughts due to making his a promise that he would never by suicide. He identifies reasons for living including his and is hopeful about the possibility of getting improved mobility and pain management through an upcoming appointment in 2 days at the [facility] where he will see neurology and the orthopedic service. He feels well supported with his outpatient providers through [facility] where he is seen for outpatient psychiatry as well as therapy with 2 therapy appointments this coming week. He feels most frustrated by "my bad leg and my bad back and I cannot do sh*t". He denies any current thoughts of suicide. He would like to focus on minimizing medications stating he wishes he could just take "2 pills a day" though he does recognize that this seems not possible given his multiple medical comorbidities as well. Endorses poor appetite and sleep difficulty which he attributes to PTSD night terrors and flashbacks. Psychiatric history notable for recent inpatient admission at [facility] in July 2025 where he was admitted for 72 hours for depression. Lifetime total of about 4 inpatient hospitalizations all within the last 5 years. He does have guns at home but his who he wanted at bedside throughout the interview confirm these are secured and he does not have access. History of 2-3 prior suicide attempts last in 2022. Reviewed potential for using alternative options to oral medications such as a transdermal patch or long-acting injectable medication and he is very interested and motivated by these options. Allergies Allergy/AdvReac Type Severity Reaction Status Date / Time clindamycin Allergy Intermediate SWELLING Verified 09/11/25 11:02 Iodinated Contrast Media Allergy Intermediate face/eye Verified 09/11/25 11:02 swelling Quinolones Allergy Intermediate HIVES Verified 09/11/25 11:02 tomato Allergy Intermediate swelling Verified 09/11/25 11:02 metformin AdvReac Unknown lactic Verified 09/11/25 11:02 acidosis Home Medications Medication Instructions Recorded Confirmed Type mirtazapine 30 mg tablet (Remeron) 30 mg PO HS 06/23/22 09/14/25 History fluticasone propionate 50 1 spray intranasal HS PRN allergy 03/16/23 09/14/25 Rx mcg/actuation nasal symptoms #16 grams spray,suspension (Flonase Allergy Relief) FreeStyle Rosalie 2 [place] (flash #1 ea 05/13/23 09/05/25 Rx glucose scanning reader) blood sugar diagnostic (RODECO ICT ServicesTouch #150 ea 11/22/23 09/05/25 Rx Verio test strips) blood-glucose meter (OneTouch #1 ea 11/22/23 09/05/25 Rx Verio Reflect Meter) lancets 33 gauge (OneTouch Delica #150 ea 11/22/23 09/05/25 Rx Plus Lancet) glucagon 3 mg/actuation nasal 3 mg intranasal ONCE PRN Severe 04/06/24 09/14/25 History spray (Baqsimi) Hypoglycemia ipratropium 0.5 mg-albuterol 3 mg 3 ml inhalation QID PRN wheezing 07/31/24 09/14/25 Rx (2.5 mg base)/3 mL nebulization #90 mL soln nebulizers (Compact Compressor #1 ea 07/31/24 09/05/25 Rx Nebulizer) vitamin B complex (Vitamins B 1 cap PO QAM #30 caps 10/26/24 09/14/25 Rx Complex capsule) Oxygen Home 01/30/25 09/05/25 History magnesium oxide 400 mg (241.3 mg 400 mg PO HS 03/01/25 09/14/25 History magnesium) tablet quetiapine 50 mg tablet,extended 50 mg PO QAM 03/19/25 09/14/25 History release 24 hr venlafaxine 150 mg 300 mg PO QAM 03/19/25 09/14/25 History capsule,extended release 24 hr acetylcysteine 200 mg/mL (20 %) 2 ml inhalation BID PRN Chest 03/26/25 09/14/25 Rx solution congestion #100 mL cholecalciferol (vitamin D3) 50 50 mcg PO QPM #90 caps 03/26/25 09/14/25 Rx mcg (2,000 unit) capsule sodium chloride 7 % for 1 inh inhalation BID #240 mL 03/26/25 09/14/25 Rx nebulization prazosin 5 mg capsule 5 mg PO HS 04/05/25 09/14/25 History FreeStyle Rosalie 2 Sensor (flash #6 ea 05/06/25 09/05/25 Rx glucose sensor) desmopressin 0.2 mg tablet 0.4 mg (2 x 0.2 mg) PO BID #120 05/16/25 09/14/25 Rx tabs naloxone 4 mg/actuation nasal 1 spray intranasal ONCE PRN opioid 05/18/25 09/14/25 Rx spray (Narcan) overdose #2 ea somatropin 5 mg/1.5 mL (3.3 mg/mL) 3 mg subcut QPM 05/29/25 09/14/25 History subcutaneous pen injector (Norditropin FlexPro) FreeStyle Rosalie 2 Plus Sensor #6 ea 06/04/25 09/05/25 Rx (blood-glucose sensor) hydrocortisone 10 mg tablet 10 mg PO QPM 06/13/25 09/14/25 History dutasteride 0.5 mg capsule 0.5 mg PO QAM #90 caps 06/19/25 09/14/25 Rx albuterol sulfate 90 mcg/actuation 2 inh inhalation Q6H PRN shortness 07/01/25 09/14/25 Rx aerosol inhaler (Ventolin HFA) of breath or wheezing #6.7 grams arformoterol 15 mcg/2 mL solution 2 ml inhalation BID #120 mL 07/01/25 09/14/25 Rx for nebulization (Brovana) budesonide 0.5 mg/2 mL suspension 0.5 mg (2 mL) inhalation BID #60 mL 07/01/25 09/14/25 Rx for nebulization hydrocortisone 10 mg tablet 20 mg PO QAM 07/02/25 09/14/25 History clopidogrel 75 mg tablet 75 mg PO QPM 08/06/25 09/14/25 History famotidine 20 mg tablet 20 mg PO QAM 08/06/25 09/14/25 History lacosamide 150 mg tablet 150 mg PO BID 08/06/25 09/14/25 History levetiracetam 1,000 mg tablet 250 mg PO BID 08/06/25 09/14/25 History levothyroxine 200 mcg tablet 200 mcg PO QAM 08/06/25 09/14/25 History lisinopril 10 mg tablet 20 mg PO QPM 08/06/25 09/14/25 History ramelteon 8 mg tablet 8 mg PO QPM 08/06/25 09/14/25 History propranolol 120 mg capsule,24 120 mg PO HS #90 caps 08/12/25 09/14/25 Rx hr,extended release docusate sodium 100 mg capsule 100 mg PO BID 30 days #60 caps 08/13/25 09/14/25 Rx ascorbic acid (vitamin C) 250 mg 250 mg PO BID #60 tabs 08/30/25 09/14/25 Rx tablet oxycodone-acetaminophen 5 mg-325 1 tab PO Q6H PRN very severe pain 09/04/25 09/14/25 Rx mg tablet (Percocet) only 1 month #120 tabs ondansetron 8 mg disintegrating 8 mg PO Q8H PRN nausea and 09/10/25 09/14/25 Rx tablet vomiting #90 tabs divalproex 500 mg tablet,extended 1,000 mg PO QAM 09/11/25 09/14/25 History release 24 hr ferrous sulfate 325 mg (65 mg 325 mg PO BID 09/14/25 09/14/25 History iron) tablet insulin glargine 100 unit/mL (3 12 unit subcut HS 09/14/25 09/14/25 History mL) subcutaneous pen (Lantus Solostar U-100 Insulin) Patient History Medical History Adrenal insufficiency On hydrocortisone Arachnoid cyst of posterior cranial fossa Benign congenital arachnoid cyst in the posterior fossa per 01/2025 brain MRI Atrial fibrillation (02/15/24) no cardioversion- has loop recorder and watchmans device, follows with dr. kilgore (will see 09/18/25) Back pain at L4-L5 level will see [facility] surgeon on 09/13/25 Bilateral hand pain Bipolar 1 disorder Bladder mass benign Blood loss anemia (06/2025) admit to [facility], required blood transfusion BPH with obstruction/lower urinary tract symptoms Cerebral concussion May 2023 during seizure > no further issues CHF (congestive heart failure) EF WNL on 10/2024 ECHO CHI (closed head injury) reports multiple due to seizures/falls Chronic left sacroiliac pain Chronic narcotic dependence Chronic respiratory failure with hypoxia O2 4L nc Chronic venous insufficiency CKD (chronic kidney disease), stage III follows with neph- dr. espinoza (will see 10/2025) Closed fracture of right fibula with malunion will see [facility] surgeon on 09/13/25- wears boot daily Compartment syndrome of lower extremity (02/2025) per hx COPD (chronic obstructive pulmonary disease) follows with dr. mccarthy (last seen april 2025)- well controlled with nebs/inhaler- last used rescue inhaler jun 2025- wears O24L at all times Demyelinating disease Depression with anxiety Epidural lipomatosis Essential tremor Frequent falls most recent- last week, states "im very sore" - states will see pcp dr. rodrigues on 09/13/25 Generalized pain Generalized weakness Growth hormone deficiency on medication (treated with growth hormone per endocrine) History of COVID-19 10/2021 - fatigue; resolved. History of pneumonia (03/2025) states has been admitted for total of 36 days ytd at [facility] for pneumonia History of recent hospitalization reports has been admitted to hospital over 100 days in 2024- last was at [facility] 06/2025- all at [facility] HTN (hypertension) Hyperactive gag reflex Hyperphosphatemia Hypokalemia Hypomagnesemia Hypothyroidism Central hypothyroidism Idiopathic polyneuropathy Kidney stones no current pain Lower extremity edema LPRD (laryngopharyngeal reflux disease) Lumbar stenosis with neurogenic claudication Migraine Mitral valve regurgitation follows with Dr. 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 on medication (DDAVP) follows with endocrine Pituitary hypogonadism Follows with endocrinology- Pituitary neoplasm Dx'ed in 2001- s/p surgical resection and XRT Repeat surgery in 2018 secondary to tumor regrowth at [facility] - Follows with endo- repeat pituitary MRI scheduled 2027 Presence of cardiac device Loop recorder > placed at [facility]- last checked fall 2023 PTSD (post-traumatic stress disorder) Rectal bleeding on occasion Recurrent seizures - PNES per records goes sometimes months without seizures, then may may have 2 in one day- last seizure-June 2025- grand mal- follows with dr. villa (07/2025) Restrictive lung disease follows with dr. mccarthy, on O2 4L nc at all times Right leg pain had seizure 09/2024 "that messed up my back and leg" pt reports will go to [facility] on 09/13/25 to see a neurosurgeon Right lumbar radiculopathy Secondary adrenal insufficiency Sensorineural hearing loss of both ears Shortness of breath only if not wearing oxygen Spondylolysis, lumbar region Syncope and collapse Reason for loop recorder No recent issues since bed bound from femur fracture in Sep 2022 per patient Therapeutic opioid-induced constipation (OIC) Transient alteration of awareness Ulcerative colitis Uncontrolled type 2 diabetes mellitus with hyperglycemia Suspect low glycation index meaning his A1c is typically about 2 points lower than what his average glucose would suggest. Urinary tract obstruction due to kidney stone Vertigo Surgical History History of arthroplasty of left knee (2014) History of bladder surgery remove mass History of brain surgery (2017) x2[place] [facility] [facility]--for brain tumors > caused epilepsy History of cardiac cath (07/2021) 07/2021 - no stents- no mi - [facility]- follows with dr. kilgore History of colonoscopy History of esophagogastroduodenoscopy (EGD) History of lithotripsy History of lumbar fusion (07/2022) [facility] [place] Jul 2022 - History of open reduction and internal fixation (ORIF) procedure (2009) right 5th metatarsal, has pins and cadaver bone, still gets painful- 2009 right femur- as a child History of prostate surgery (2016) remove mass- not malignant History of tooth extraction History of wisdom tooth extraction Hx of flexible sigmoidoscopy (07/03/25) Presence of Watchman left atrial appendage closure device (02/2024) eric S/P epidural steroid injection S/P TURP (status post transurethral resection of prostate) Family History Grandmother (Paternal) Family history of diabetes mellitus Aunt Family history of diabetes mellitus Uncle Family history of diabetes mellitus Father , at 85 years of age from dementia. Prostate cancer Heart disease Osteoarthritis Mother , at 84 years of age from acute AR. Cardiac disorder Grandmother (Maternal) Myocardial infarction Other Asthma Cancer Hypertension No family history of adverse response to anesthesia No family history of bleeding disorder Stroke Denies family history of Ovarian cancer Breast cancer Colorectal cancer Social History Smoking Status: Never smoker Tobacco Type: Smokeless Tobacco (Dip or Chew) Second Hand Exposure: No; Do You Dip or Chew Tobacco: No; Tobacco Cessation Education Requested by Patient: No Hx Alcohol Use: No Hx Substance Use: No Preferred Language: Spanish Communication Ability: Effective Communication Ability Comment: Unable to obtain due to patient condition. Visual Impairment: Limited Hearing Ability: Normal Tow Car Driver Required: No Beliefs That Will Affect Care: None marital status: Single Current Living Situation: Spouse Current Living Situation Comment: and daughter in [place] current occupational status: disabled How many Children do You have: 3 How many Children do You have Comment: able to assist with care if needed Other Information That Helps Us Care for You: No Feels Safe at Home: Yes Safety Concerns: Feels Safe At This Time Childhood Exposure to Second-Hand Smoke: Yes (parents smoked) Diet: regular Diet Comment: going to be starting low carb/low calorie diet. caffeine: No (1/2 20 oz bottle of mountain dew. ) during the past year weight has: increased > 10 lbs Physical Activity Frequency: Daily Physical Activity Frequency Comment: walking, 1.5 miles daily. Seatbelt Use: always Do you think of yourself as: straight/heterosexual Gender Identity: Male Assistive Devices: CPAP and Oxygen - at Night Physical Exam Vital Signs (Past 24 Hours): Last Vital Signs Temp 36.5 C 09/14/25 13:19 Pulse 88 09/14/25 13:50 Resp 20 09/14/25 10:10 BP 128/70 09/14/25 13:19 Pulse Ox 97 09/14/25 13:19 O2 Del Method Room Air 09/14/25 13:19 O2 Flow Rate 4 09/14/25 03:35 Results & Data (PSY) Medications Administered Budesonide (Budesonide 0.5 Mg/2 Ml Vial (Pulmicort)) 0.5 mg INH BID OBDULIO Stop: 10/14/25 08:59 Last Admin: 09/14/25 10:46 Dose: Not Given Documented By: REMEDIOS Desmopressin Acetate (Desmopressin Acetate 0.1 Mg Tab) 0.4 mg PO BID OBDULIO Stop: 10/14/25 08:59 Last Admin: 09/14/25 11:02 Dose: 0.4 mg Documented By: ROXIE Divalproex Sodium (Divalproex Extended Release 500 Mg Tab) 1,000 mg PO QAM OBDULIO Stop: 10/14/25 08:59 Last Admin: 09/14/25 11:01 Dose: 1,000 mg Documented By: ROXIE Enoxaparin Sodium (Enoxaparin Inj 40 Mg/0.4 Ml Syr) 40 mg SQ QAM OBDULIO Stop: 10/14/25 12:59 Last Admin: 09/14/25 13:54 Dose: 40 mg Documented By: ROXIE Formoterol Fumarate (Formoterol 20 Mcg/2 Ml Vial) 20 mcg INH BID [facility] Stop: 10/14/25 08:59 Last Admin: 09/14/25 10:46 Dose: Not Given Documented By: REMEDIOS Hydrocortisone (Hydrocortisone 10 Mg Tab) 40 mg PO QAM [facility] Stop: 10/14/25 08:59 Last Admin: 09/14/25 09:05 Dose: 40 mg Documented By: DEBBIE Insulin Aspart (Insulin Aspart Per Unit Charge) 0 units SC ACHS [facility] Stop: 10/14/25 07:29 Last Admin: 09/14/25 12:22 Dose: 7 units Documented By: ANNA Co-signed By: FLACA Admin: 09/14/25 07:20 Dose: 1 units Documented By: DEBBIE Co-signed By: PIERRE Lacosamide (Lacosamide 50 Mg Tablet) 150 mg PO BID [facility] Stop: 10/14/25 08:59 Last Admin: 09/14/25 11:26 Dose: 150 mg Documented By: ROXIE Levothyroxine Sodium (Levothyroxine Sodium 200 Mcg Tablet) 200 mcg PO DAILYBB [facility] Stop: 10/14/25 08:14 Last Admin: 09/14/25 09:05 Dose: 200 mcg Documented By: DEBBIE Lorazepam (Lorazepam 1 Mg Tab) 1 mg SL Q8H PRN PRN Reason: tremors/shakes Stop: 10/14/25 12:59 Last Admin: 09/14/25 13:04 Dose: 1 mg Documented By: ROXIE Oxycodone/Acetaminophen (Oxycodone/Acetaminophen 5mg/325mg Tab) 1 tab PO Q6H PRN PRN Reason: Pain Stop: 09/28/25 07:41 Last Admin: 09/14/25 13:25 Dose: 1 tab Documented By: ROXIE Coding Level of Care Code 38333 IN/OBS CONSULT LVL 5,80M Diagnoses Bipolar disorder F31.9 Depression F32.9 PTSD (post-traumatic stress disorder) F43.10
--- NOTE | 2025-09-14 16:48 | Electrocardiogram Report ---
Test Reason : Blood Pressure : */* mmHG Vent. Rate : 134 BPM Atrial Rate : 134 BPM P-R Int : 120 ms QRS Dur : 84 ms QT Int : 378 ms P-R-T Axes : * -10 59 degrees QTcB Int : 564 ms Sinus tachycardia Otherwise normal ECG When compared with ECG of 07-Aug-2025 05:05, Vent. rate has increased by 54 bpm Nonspecific T wave abnormality no longer evident in Anterior leads Confirmed by Glynn Sheth ([id number]) on 09/14/2025 4:48:00 PM Referred By: REFERRED SELF Confirmed By: Glynn Sheth
[2025-09-14] MEDS: REMOVE CLONIDINE PATCH SCH (17:49)
[2025-09-14] MEDS ORDERED: PRAZOSIN HCL 1 MG CAP PO SCH (21:00)
[2025-09-14] MEDS ORDERED: MIRTAZAPINE TAB 15 MG TAB PO SCH (21:00)
[2025-09-14] MEDS: MAGNESIUM OXIDE 400 MG TAB PO SCH (21:32)
[2025-09-14] MEDS: LANTUS PER UNIT CHARGE SQ SCH (21:33)
[2025-09-14] MEDS: CLOPIDOGREL BISULFATE 75 MG TAB PO SCH (21:34)
[2025-09-14] MEDS: PROPRANOLOL HCL 60 MG LA CAP PO SCH (21:36)
[2025-09-15] MEDS: CHECK CLONIDINE PATCH PLACEMENT SCH
[2025-09-15 06:53] VITALS: O2SAT 97
--- NOTE | 2025-09-15 07:18 | Hospitalist Progress Note ---
Date of Service September 15, 2025 Assessment & Plan Admission and Anticipated Discharge Date Admission Date: September 13, 2025 Results & Data Results & Data Vital Signs (Past 12 Hours) Vital Signs Temp Pulse Pulse Resp BP Pulse Ox O2 Del Method 09/15/25 07:07 74 09/15/25 06:52 74 18 97 Nasal Cannula 09/15/25 04:22 36.5 C 73 20 109/71 95 Nasal Cannula 09/15/25 00:37 36.7 C 95 H 22 101/55 L 95 Room Air 09/14/25 21:42 105 H 09/14/25 20:03 77 17 94 Nasal Cannula 09/14/25 20:02 36.7 C 81 20 118/62 94 Room Air 09/14/25 20:00 Nasal Cannula O2 Flow Rate 09/15/25 07:07 09/15/25 06:52 2 09/15/25 04:22 1 09/15/25 00:37 09/14/25 21:42 09/14/25 20:03 1 09/14/25 20:02 09/14/25 20:00 1 PG Care Time/CCT Total # of Minutes Spent Total Time Spent with Patient: Total time spent is greater than 50% in coordination of care (as documented) at patient's floor/unit and/or counseling patient: Coding
[2025-09-15 07:23] LABS: Hematocrit (blood only) 32.0 % (42.0-52.0); Hemoglobin 11.3 g/dl (14.0-18.0); Immature Granulocytes # (auto) 0.09 K/uL (0.01-0.20); Immature Granulocytes % (auto) 0.6 %; Mean Corpuscular Hemoglobin 29.5 pg (25.0-34.0); Mean Corpuscular Volume 83.6 fL (80.0-100.0); Platelet Count 156 K/uL (130-400); RDW Standard Deviation 44.9 fL (36.4-46.3); Red Blood Count 3.83 M/uL (4.70-6.10); White Blood Count 14.27 K/ul (4.8-10.8)
[2025-09-15 07:40] LABS: Alanine Aminotransferase 26.0 U/L (7-52); Albumin Globulin Ratio 1.5 (0.9-2); Albumin Level 3.2 gm/dl (3.4-5.0); Alkaline Phosphatase 23.0 U/L (34-104); Anion Gap 7.0 (3-11); Bilirubin,Total 0.6 mg/dl (0.2-1.0); Blood Urea Nitrogen 3.0 mg/dl (6-23); Calcium 8.5 mg/dl (8.6-10.3); Carbon Dioxide 24.0 mmol/L (21-32); Chloride 110.0 mmol/L (98-107); Creatinine Clr Calc Pharmacy 111.2 ml/min; Globulin 2.1 gm/dl (2.5-4.0); Glucose 114.0 mg/dl (70-99(Fasting)); Magnesium 2.0 mg/dl (1.7-2.4); Potassium 3.9 mmol/L (3.5-5.1); Sodium 141.0 mmol/L (136-145); Total Protein 5.3 gm/dl (6.0-8.3)
[2025-09-15] MEDS ORDERED: VENLAFAXINE HCL XR 150 MG CAPXR PO SCH (09:00)
[2025-09-15 10:05] VITALS: BP 124/61; RESP 22; TEMP 97.5
[2025-09-15 10:19] VITALS: PULSE 70
--- NOTE | 2025-09-15 13:16 | Discharge Summary ---
Discharge Summary Date of Service September 15, 2025 Principal Dx & Hospital Course #1 = Principal Diagnosis (1) Nonadherence to medication: (2) PTSD (post-traumatic stress disorder): (3) Bipolar disorder: (4) Psychogenic nonepileptic seizure: (5) Hypopituitarism: Plan In summary this is a 55-year-old male who was admitted due to multiple severe electrolyte abnormalities, EKG changes, and witnessed seizure activity. The patient's presentation was precipitated by self discontinuation of multiple medications including DDAVP, hydrocortisone, multiple psychiatric medications for management of severe major depressive disorder with features of anxiety as well as PTSD in addition to discontinuation of antiepileptics for which they are prescribed for remote epilepsy and subsequent diagnosis of psychogenic nonepileptic seizures. After prolonged discussion with both the primary hospitalist service as well as consultation with psychiatry, medication adjustments were made based on risk, and the patient's acceptance of relative risk. He is willing and will continue to take their entirety of his previously prescribed medications for management of his panhypopituitarism. Adjustments have been made as further detailed below regarding his psychiatric medications. There has been no adjustment made to his epileptic medications, we recommend he follows with his outpatient neurologist for further management and adjustment. Notes For Next Care Provider Medication Changes From Visit Discontinue mirtazapine, prazosin, quetiapine, venlafaxine Start clonidine 0.1 mg transdermal patch changing every 7 days Start risperidone 2 mg p.o. daily Admission HPI Per Admitting Provider The patient is a 55-year-old male with past medical history including seizure disorder, bipolar disorder, medical noncompliance, diabetes insipidus, panhypopituitarism, psychogenic nonepileptic seizure, asthma, seen by palliative care in the past, demyelinating disease, GERD, ulcerative colitis, and depression and anxiety. Patient reportedly stopped taking all of his medications 6 days ago, because he did not want to take all the pills. He reportedly had several seizures today, and family arranged for him to come to the emergency department for assessment. The patient is not very cooperative with relaying information related to review of systems or HPI. EMS gave the patient Versed 2 mg and route to the hospital, which stopped tremors. In the emergency department the patient was given Keppra 2000 mg IV, 1 L normal saline x 2, lorazepam 1 mg IV, magnesium 2 g IV, and potassium chloride 40 mill equivalents p.o. and 10 mEq IV. He was then referred for evaluation for admissi on to the [facility] hospitalist service. He was noted to have a potassium of 2.7, magnesium 1.3, glucose 189, AST 76, valproic acid level less than 10. Chest x-ray was normal, and CT scan of the head was normal. Discharge Exam General: Adult male in no acute distress Vital Signs: Reviewed HEENT: Pupils equally round and reactive to light, extraocular motion intact Pulmonary: Symmetric chest wall excursion without restriction Cardiovascular: Regular rate and rhythm Neurologic: Cranial nerves II through XII grossly intact; no discernible focal weakness or paresthesia Discharge Plan Discharge Items Patient Disposition: Home - Self-Care Reason For Visit: SEIZURE DISORDER, BIPOLAR DISORDER, NONCOMPLIANCE Discharge Diagnosis: Severe electrolyte abnormalities // Nonadherence to medication regimen Condition on Discharge: Fair Activity: Per Instructions section Non-emergency contact: Primary Care Provider, Neurologist and Psychiatrist Call non-emergency contact if: your symptoms worsen Follow-up/Referrals: ProLarry MD [Primary Care Provider] - 09/24/25 10:30 am (Hospital follow up scheduled for September 24, 2025 at 10:30am.) Diet: Regular Fluids: 2000ml (8 cups) Addtl Attending Provider Instructions: You were admitted to [facility] for severe electrolyte a bnormalities and complications related to self discontinuation of your prescribed medication regimen. Your electrolyte abnormalities resolved with resuming your usually prescribed medications. After discussion with psychiatry, recommendations from their provider will be continued at discharge aligning with your preferences regarding medication regimen. We will send a prescription for clonidine 0.1 mg transdermal patch to be changed weekly in addition to risperidone 2 mg p.o. daily to be transition to a long-acting based on your discussions with your psychiatrist. It is imperative, with respect to your medications for your hypopituitarism that you maintain adherence with this regimen given the severe consequences that can occur with electrolyte abnormalities that can occur with inadequate management. Thank you for choosing [facility] as your healthcare provider. Pending Studies at Discharge: No Stand-Alone Forms: My [facility], Smoking Cessation Medications and DC Order Prescriptions: New clonidine 0.1 mg/24 hr Patch Weekly 1 patch transdermal Q7D 28 Days Qty: 4 0RF risperidone 2 mg Tablet 2 mg PO QAM 30 Days Qty: 30 0RF Continued fluticasone propionate [Flonase Allergy Relief] 50 mcg/actuation spray,suspension 1 spray intranasal HS PRN (Reason: allergy symptoms) Qty: 16 0RF Rx Instructions: administer into each nostril (DME) OneTouch Verio test strips Strip See Rx Instructions .MEDSUPPLY Qty: 150 5RF Rx Instructions: check blood sugars 4 times a day (DME) blood-glucose meter [OneTouch Verio Reflect Meter] Misc See Rx Instructions miscellaneous .MEDSUPPLY Qty: 1 0RF Rx Instructions: As directed (DME) lancets [OneTouch Delica Plus Lancet] 33 gauge misc See Rx Instructions .MEDSUPPLY Qty: 150 5RF Rx Instructions: As directed check blood sugars 4 times a day (DME) Oxygen Home Liters Per Minute See Rx Instructions .Route Rx Instructions: 4 L o2 via NC As directed, cholecalciferol (vitamin D3) 50 mcg (2,000 unit) capsule 50 mcg PO QPM Qty: 90 1RF (DME) FreeStyle Rosalie 2 Sensor Kit See Rx Instructions .Route Qty: 6 3RF Rx Instructions: Change every 14 days desmopressin 0.2 mg tablet 0.4 mg PO BID Qty: 120 5RF (DME) FreeStyle Rosalie 2 Plus Sensor Device See Rx Instructions .Route Qty: 6 3RF Rx Instructions: change every 15 days dutasteride 0.5 mg capsule 0.5 mg PO QAM Qty: 90 2RF propranolol 120 mg capsule,extended release 24hr 120 mg PO HS Qty: 90 3RF docusate sodium 100 mg capsule 100 mg PO BID 30 Days Qty: 60 1RF Patient Comments: 09/14- otc unable to verify ascorbic acid (vitamin C) 250 mg tablet 250 mg PO BID Qty: 60 2RF oxycodone-acetaminophen [Percocet] 5-325 mg tablet 1 tab PO Q6H PRN (Reason: very severe pain only) 30 Days Qty: 120 0RF ondansetron 8 mg tablet,disintegrating 8 mg PO Q8H PRN (Reason: nausea and vomiting) Qty: 90 1RF (DME) FreeStyle Rosalie 2 [place] Misc See Rx Instructions .Route Qty: 1 0RF Rx Instructions: Check blood glucose before each meal (DME) nebulizers [Compact Compressor Nebulizer] Misc See Rx Instructions .Route Qty: 1 0RF Rx Instructions: One compact compressor nebulizer. Use as directed. Please include tubing, mouth piece and cup. ipratropium-albuterol 0.5 mg-3 mg(2.5 mg base)/3 mL solution for nebulization 3 ml inhalation QID PRN (Reason: wheezing) Qty: 90 0RF albuterol sulfate [Ventolin HFA] 90 mcg/actuation HFA aerosol inhaler 2 inh inhalation Q6H PRN (Reason: shortness of breath or wheezing) Qty: 6.7 2RF arformoterol [Brovana] 15 mcg/2 mL solution for nebulization 2 ml inhalation BID Qty: 120 7RF budesonide 0.5 mg/2 mL suspension for nebulization 0.5 mg inhalation BID Qty: 60 7RF hydrocortisone 10 mg tablet 10 mg PO QPM Rx Instructions: 2 tabs (20mg) in AM, 1 tab (10mg) in PM double dose in times of stress magnesium oxide 400 mg (241.3 mg magnesium) tablet 400 mg PO HS Hold Instructions: hold until diarrhea resolved - magnesium supplement can cause diarrhea sodium chloride 7 % solution for nebulization 1 inh inhalation BID Qty: 240 3RF acetylcysteine 200 mg/mL (20 %) solution 2 ml inhalation BID PRN (Reason: Chest congestion) Qty: 100 6RF Baqsimi 3 mg/actuation spray,non-aerosol 3 mg intranasal ONCE PRN (Reason: Severe Hypoglycemia) Rx Instructions: for treatment of severe hypoglycemia, second dose may be given if patient does not respond after 15 minutes . Per caregiver, pt has never has to use this medication. vitamin B complex [Vitamins B Complex] Capsule 1 cap PO QAM Qty: 30 0RF Patient Comments: 09/14- otc unable to verify Norditropin FlexPro 5 mg/1.5 mL (3.3 mg/mL) pen injector 3 mg SQ QPM divalproex 500 mg tablet extended release 24 hr 1,000 mg PO QAM naloxone [Narcan] 4 mg/actuation spray,non-aerosol 1 spray intranasal ONCE PRN (Reason: opioid overdose) Qty: 2 2RF hydrocortisone 10 mg tablet 20 mg PO QAM Rx Instructions: 2 tabs (20mg) in AM, 1 tab (10mg) in PM double dose in times of stress clopidogrel 75 mg tablet 75 mg PO QPM famotidine 20 mg tablet 20 mg PO QAM lisinopril 10 mg tablet 20 mg PO QPM levothyroxine 200 mcg tablet 200 mcg PO QAM ramelteon 8 mg tablet 8 mg PO QPM levetiracetam 1,000 mg tablet 250 mg PO BID lacosamide 150 mg tablet 150 mg PO BID ferrous sulfate 325 mg (65 mg iron) tablet 325 mg PO BID Rx Instructions: you can take this every other day - it works just as well and causes fewer bowel problems insulin glargine [Lantus Solostar U-100 Insulin] 100 unit/mL (3 mL) insulin pen 12 unit SUBCUT HS Rx Instructions: Per Dr. Linares last pt last spoke w. him. Discontinued mirtazapine [Remeron] 30 mg tablet 30 mg PO HS prazosin 5 mg capsule 5 mg PO HS Rx Instructions: take a total of 7 mg venlafaxine 150 mg capsule,extended release 24hr 300 mg PO QAM quetiapine 50 mg tablet extended release 24 hr 50 mg PO QAM Discharge Orders: Discharge Order (Routine); Ordered 09/15/25 Ordered By: David Ponce Admission Data Admit Date/Time: 09/13/25 23:34 Attending Provider: David Ponce Admit Provider: Krishna Ronquillo Primary Care Provider: Larry Amaral Other Providers: Krishna Ronquillo; Wendy Trinh; Keon Garcia; Damaris Galeano; Mary Gar; Bijan Valiente; Rodrigue Mathew; Ashley Hedrick; Sun Arguelles Other Interventions: Discharge Summary Assessment (RN) Last Done: 09/15/25 10:19 Hospital Stay Data Consultations 09/13/25 22:56 ED Decision to Admit Stat 09/14/25 07:52 Consult Psychiatry Routine Diagnostic Imagining Performed 09/13/25 20:45 CT head/brain wo con Stat Pending Results Patient Have Any Pending Studies at Discharge: No Discharge Instructions Given to Patient (Per Discharging Provider) You were admitted to [facility] for severe electrolyte abnormalities and complications related to self discontinuation of your prescribed medication regimen. Your electrolyte abnormalities resolved with resuming your usually prescribed medications. After discussion with psychiatry, recommendations from their provider will be continued at discharge aligning with your preferences regarding medication regimen. We will send a prescription for clonidine 0.1 mg transdermal patch to be changed weekly in addition to risperidone 2 mg p.o. daily to be transition to a long-acting based on your discussions with your psychiatrist. It is imperative, with respect to your medications for your hypopituitarism that you maintain adherence with this regimen given the severe consequences that can occur with electrolyte abnormalities that can occur with inadequate management. Thank you for choosing [facility] as your healthcare provider. Total Time Total Time Spent Total Time Spent (In Minutes): I personally spent 40 minutes in the coordination of patient's discharge including bedside counseling, physical exam, chart review, and medication reconciliation Coding Level of Care Code 40948 INP/OBS DISCH >30 MIN Diagnoses Nonadherence to medication Z91.148 PTSD (post-traumatic stress disorder) F43.10 Bipolar disorder F31.9 Psychogenic nonepileptic seizure F44.5 Hypopituitarism E23.0
--- NOTE | 2025-09-15 18:32 | Communication Note ---
Date of Service: September 15, 2025 Brief Psychiatry Update: Patient discharged before he could be seen by psychiatry consult service this afternoon to follow up on psychiatric medication changes. Yesterday we discussed option to transition from risperidone po to Uzedy VEGA for 1-2 month duration of antipsychotic mood stabilization and off-label depression augmentation. Given his discharge recommend he explore this in the outpatient setting with his outpatient psychiatric provider at [facility] (HELEN signed, records and this update will be sent to them). P: -Consider transition from risperidone po to risperidone VEGA in outpatient setting if he wants to further reduce his daily pill burden.
--- NOTE | 2025-09-16 08:06 | Electrocardiogram Report ---
Test Reason : Blood Pressure : */* mmHG Vent. Rate : 73 BPM Atrial Rate : 73 BPM P-R Int : 162 ms QRS Dur : 96 ms QT Int : 504 ms P-R-T Axes : 50 -1 5 degrees QTcB Int : 555 ms Normal sinus rhythm Nonspecific T wave abnormality Prolonged QT Abnormal ECG When compared with ECG of 13-Sep-2025 20:44, Vent. rate has decreased by 61 bpm Nonspecific T wave abnormality now evident in Inferior leads Nonspecific T wave abnormality now evident in Anterior leads Confirmed by Glynn Sheth ([id number]) on 09/15/2025 10:39:53 AM Referred By: REFERRED SELF Confirmed By: Glynn Sheth
== END 2025-09-15 11:00 | disposition home or self-care (01) | DRG 641 ==
LOC: SUATTDRO → ED 20:34 → SUATTDRO 23:34 → EDINP 23:34 → 2S 09-14 10:47

== ENCOUNTER 2025-09-24 11:09 | Observation (INO) ==
--- NOTE | 2025-09-24 11:42 | Emergency Department Note ---
Impression & Plan Generalized weakness, Ambulatory dysfunction, Hypomagnesemia, QUENTIN (acute kidney injury), Hypoxia ED Provider Note HISTORY OF PRESENT ILLNESS: Patient is a 55-year-old male presenting with fatigue and weakness. Patient reports that he has been feeling "blah" since last night. He was evaluated by physical therapy this morning and they thought the patient was may be having a stroke secondary to his weakness and recommended he be evaluated in the emergency department. Patient denies any focal symptoms. He reports he just does not feel well. He reports nausea but denies any vomiting or diarrhea. He denies any chest pain or shortness of breath. Denies any recent head injury or fall in the last 72 hours. ROS: as above PHYSICAL EXAM: Constitutional: Patient appears in no acute distress. HENT: Head: Normocephalic and atraumatic. Eyes: EOMI, PERRL Mouth/Throat: Mucous membranes moist. Neck: Trachea midline. Neck supple. Cardiovascular: RRR, No murmurs, rubs or gallops. Intact distal pulses. Pulmonary/Chest: No respiratory distress. Breath sounds clear and equal bilaterally. No wheezes or rales. Abdominal: Abdomen soft, no tenderness, rebound or guarding. Musculoskeletal: No edema, tenderness or deformity noted. Walking boot on right lower extremity. Skin: Warm and dry. No rash, erythema, pallor or cyanosis Psychiatric: Appropriate mood and affect for situation. Neurological: Alert and keenly responsive. CN II-XII grossly intact, moving all extremities equally and fully. MDM: - Vitals signs stable. - History obtained via patient. History as above. - Chronic conditions affecting care: HLD; hypopituitarism; COPD; seizure disorder; CHF; COPD - Differential diagnoses include, but are not limited to: viral syndrome; UTI; pneumonia; electrolyte abnormality; CVA; intracranial hemorrhage; ACS; dysrhythmia - Order placed for continuous cardiac monitoring. At this time, monitor showed rate of 68 bpm with normal sinus rhythm, per my interpretation. - External medical records reviewed. Discharge summary dated 09/15/2025 was reviewed. Patient was admitted due to multiple electrolyte abnormalities, EKG changes and witnessed seizure-like activity. - EKG image interpreted by myself showed normal sinus rhythm. Rate 69 bpm. QT 438. No acute ischemic changes. - Laboratory workup interpreted by myself showed normal WBC; normal PT/INR; stable electrolytes; hypomagnesemia (Mg 1.4); QUENTIN (Cr 2.17); normal troponin; normal AST/ALT - Viral respiratory panel negative - CT head wo contrast negative for acute pathology - VBG showed slight respiratory acidosis - CXR image reviewed by myself was negative for pneumonia, per my interpretation. Radiology notes interval blunting of the left costophrenic angle which could be atelectasis versus early pneumonia versus a small pleural effusion. - Patient given 1L NS and 1g IV magnesium for electrolyte replacement. - On reassessment, patient was unable to get out of bed with nursing staff to attempt ambulatory trial secondary to his weakness. - Patient did have some transient hypoxia and hypotension in the ER. He was placed on 2 L nasal cannula. He was given additional 1 L normal saline at 1g IV magnesium - Discussion was had with case repairer about patient's case and need for admission - Hospitalist consulted for admission - [facility] ASSESSMENT AND PLAN: Diagnosis: Generalized weakness; hypomagnesemia; ambulatory dysfunction; QUENTIN; hypoxia Plan: admit Past Med/Surg History Problem List (Updated 09/24/25 @ 16:59 by Homa Kelley MD) Hypoxia (Acute) QUENTIN (acute kidney injury) (Acute) Hypomagnesemia (Acute) Ambulatory dysfunction (Acute) Generalized weakness (Acute) Nonadherence to medication PTSD (post-traumatic stress disorder) Diabetes insipidus Chronic anemia (Acute) Vision loss, left eye Entered 05/2025 Hypopituitarism Psychogenic nonepileptic seizure Asthma Presbyopia of both eyes Epiretinal membrane (ERM) of left eye Ocular hypertension Demyelinating disease Esophageal dysphagia 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 tested positive in Aug 2023 [place] Current use of proton pump inhibitor Chronic migraine without aura or status migrainosus Ulcerative colitis Mixed hyperlipidemia Lumbar stenosis with neurogenic claudication Essential tremor Mitral regurgitation Anti-cyclic citrullinated peptide antibody positive Internal hemorrhoids Prostate mass benign Medical History Adrenal insufficiency On hydrocortisone Arachnoid cyst of posterior cranial fossa Benign congenital arachnoid cyst in the posterior fossa per 01/2025 brain MRI Atrial fibrillation (02/15/24) no cardioversion- has loop recorder and watchmans device, follows with dr. kilgore (will see 09/18/25) Back pain at L4-L5 level will see [facility] surgeon on 09/13/25 Bilateral hand pain Bipolar 1 disorder Bladder mass benign Blood loss anemia (06/2025) admit to [facility], required blood transfusion BPH with obstruction/lower urinary tract symptoms Cerebral concussion May 2023 during seizure > no further issues CHF (congestive heart failure) EF WNL on 10/2024 ECHO CHI (closed head injury) reports multiple due to seizures/falls Chronic left sacroiliac pain Chronic narcotic dependence Chronic respiratory failure with hypoxia O2 4L nc Chronic venous insufficiency CKD (chronic kidney disease), stage III follows with neph- dr. espinoza (will see 10/2025) Closed fracture of right fibula with malunion will see [facility] surgeon on 09/13/25- wears boot daily Compartment syndrome of lower extremity (02/2025) per hx COPD (chronic obstructive pulmonary disease) follows with dr. mccarthy (last seen april 2025)- well controlled with nebs/inhaler- last used rescue inhaler jun 2025- wears O24L at all times Demyelinating disease Depression with anxiety Epidural lipomatosis Essential tremor Frequent falls most recent- last week, states "im very sore" - states will see pcp dr. rodrigues on 09/13/25 Generalized pain Generalized weakness Growth hormone deficiency on medication (treated with growth hormone per endocrine) History of COVID-19 10/2021 - fatigue; resolved. History of pneumonia (03/2025) states has been admitted for total of 36 days ytd at [facility] for pneumonia History of recent hospitalization reports has been admitted to hospital over 100 days in 2024- last was at [facility] 06/2025- all at [facility] HTN (hypertension) Hyperactive gag reflex Hyperphosphatemia Hypokalemia Hypomagnesemia Hypothyroidism Central hypothyroidism Idiopathic polyneuropathy Kidney stones no current pain Lower extremity edema LPRD (laryngopharyngeal reflux disease) Lumbar stenosis with neurogenic claudication Migraine Mitral valve regurgitation follows with Dr. 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 on medication (DDAVP) follows with endocrine Pituitary hypogonadism Follows with endocrinology- Pituitary neoplasm Dx'ed in 2001- s/p surgical resection and XRT Repeat surgery in 2018 secondary to tumor regrowth at [facility] - Follows with endo- repeat pituitary MRI scheduled 2027 Presence of cardiac device Loop recorder > placed at [facility]- last checked fall 2023 PTSD (post-traumatic stress disorder) Rectal bleeding on occasion Recurrent seizures - PNES per records goes sometimes months without seizures, then may may have 2 in one day- last seizure-June 2025- grand mal- follows with dr. villa (07/2025) Restrictive lung disease follows with dr. mccarthy, on O2 4L nc at all times Right leg pain had seizure 09/2024 "that messed up my back and leg" pt reports will go to [facility] on 09/13/25 to see a neurosurgeon Right lumbar radiculopathy Secondary adrenal insufficiency Sensorineural hearing loss of both ears Shortness of breath only if not wearing oxygen Spondylolysis, lumbar region Syncope and collapse Reason for loop recorder No recent issues since bed bound from femur fracture in Sep 2022 per patient Therapeutic opioid-induced constipation (OIC) Transient alteration of awareness Ulcerative colitis Uncontrolled type 2 diabetes mellitus with hyperglycemia Suspect low glycation index meaning his A1c is typically about 2 points lower than what his average glucose would suggest. Urinary tract obstruction due to kidney stone Vertigo Surgical History History of arthroplasty of left knee (2014) History of bladder surgery remove mass History of brain surgery (2018) x2---2004 @ [facility], 2018 @ [facility]--for brain tumors > caused epilepsy History of cardiac cath (07/2021) 07/2021 - no stents- no hi - [facility]- follows with dr. kilgore History of colonoscopy History of esophagogastroduodenoscopy (EGD) History of lithotripsy History of lumbar fusion (07/2022) [facility] Jul 2022 - History of open reduction and internal fixation (ORIF) procedure (2009) right 5th metatarsal, has pins and cadaver bone, still gets painful- 2009 right femur- as a child History of prostate surgery (2016) remove mass- not malignant History of tooth extraction History of wisdom tooth extraction Hx of flexible sigmoidoscopy (07/03/25) Presence of Watchman left atrial appendage closure device (02/2024) eric S/P epidural steroid injection S/P TURP (status post transurethral resection of prostate) Family History Grandmother (Paternal) Family history of diabetes mellitus Aunt Family history of diabetes mellitus Uncle Family history of diabetes mellitus Father , at 85 years of age from dementia. Prostate cancer Heart disease Osteoarthritis Mother , at 84 years of age from acute [place]. Cardiac disorder Grandmother (Maternal) Myocardial infarction Other Asthma Cancer Hypertension No family history of adverse response to anesthesia No family history of bleeding disorder Stroke Denies family history of Ovarian cancer Breast cancer Colorectal cancer Social History Smoking Status: Never smoker Tobacco Type: Smokeless Tobacco (Dip or Chew) Second Hand Exposure: No; Do You Dip or Chew Tobacco: No; Hx Alcohol Use: No Hx Substance Use: No Preferred Language: Turkmen Communication Ability: Effective Communication Ability Comment: Unable to obtain due to patient condition. Visual Impairment: Limited Hearing Ability: Normal Social Media Marketing Manager Required: No Beliefs That Will Affect Care: None marital status: Single Current Living Situation: Spouse Current Living Situation Comment: and daughter in [place] current occupational status: disabled How many Children do You have: 3 How many Children do You have Comment: able to assist with care if needed Feels Safe at Home: Yes Childhood Exposure to Second-Hand Smoke: Yes (parents smoked) Diet: regular Diet Comment: going to be starting low carb/low calorie diet. caffeine: No (1/2 20 oz bottle of mountain dew. ) during the past year weight has: increased > 10 lbs Physical Activity Frequency: Daily Physical Activity Frequency Comment: walking, 1.5 miles daily. Seatbelt Use: always Do you think of yourself as: straight/heterosexual Gender Identity: Male Assistive Devices: CPAP and Oxygen - at Night Allergies Allergies Allergy/AdvReac Type Severity Reaction Status Date / Time clindamycin Allergy Intermediate SWELLING Verified 09/11/25 11:02 Iodinated Contrast Media Allergy Intermediate face/eye Verified 09/11/25 11:02 swelling Quinolones Allergy Intermediate HIVES Verified 09/11/25 11:02 tomato Allergy Intermediate swelling Verified 09/11/25 11:02 metformin AdvReac Unknown lactic Verified 09/11/25 11:02 acidosis Home Meds Home Medications Medication Instructions Recorded Confirmed glucagon 3 mg/actuation nasal 3 mg intranasal ONCE PRN Severe 04/06/24 09/14/25 spray (Baqsimi) Hypoglycemia Oxygen Home 01/30/25 09/05/25 magnesium oxide 400 mg (241.3 mg 400 mg PO HS 03/01/25 09/14/25 magnesium) tablet somatropin 5 mg/1.5 mL (3.3 mg/mL) 3 mg subcut QPM 05/29/25 09/14/25 subcutaneous pen injector (Norditropin FlexPro) hydrocortisone 10 mg tablet 10 mg PO QPM 06/13/25 09/14/25 hydrocortisone 10 mg tablet 20 mg PO QAM 07/02/25 09/14/25 clopidogrel 75 mg tablet 75 mg PO QPM 08/06/25 09/14/25 famotidine 20 mg tablet 20 mg PO QAM 08/06/25 09/14/25 lacosamide 150 mg tablet 150 mg PO BID 08/06/25 09/14/25 levetiracetam 1,000 mg tablet 250 mg PO BID 08/06/25 09/14/25 levothyroxine 200 mcg tablet 200 mcg PO QAM 08/06/25 09/14/25 lisinopril 10 mg tablet 20 mg PO QPM 08/06/25 09/14/25 ramelteon 8 mg tablet 8 mg PO QPM 08/06/25 09/14/25 divalproex 500 mg tablet,extended 1,000 mg PO QAM 09/11/25 09/14/25 release 24 hr ferrous sulfate 325 mg (65 mg 325 mg PO BID 09/14/25 09/14/25 iron) tablet insulin glargine 100 unit/mL (3 12 unit subcut HS 09/14/25 09/14/25 mL) subcutaneous pen (Lantus Solostar U-100 Insulin) Previous Rx's Medication Instructions Recorded fluticasone propionate 50 1 spray intranasal HS PRN allergy 03/16/23 mcg/actuation nasal symptoms #16 grams spray,suspension (Flonase Allergy Relief) FreeStyle Rosalie 2 [place] (flash #1 ea 05/13/23 glucose scanning reader) blood sugar diagnostic (TriposoTouch #150 ea 11/22/23 Verio test strips) blood-glucose meter (OneTouch #1 ea 11/22/23 Verio Reflect Meter) lancets 33 gauge (OneTouch Delica #150 ea 11/22/23 Plus Lancet) ipratropium 0.5 mg-albuterol 3 mg 3 ml inhalation QID PRN wheezing 07/31/24 (2.5 mg base)/3 mL nebulization #90 mL soln nebulizers (Compact Compressor #1 ea 07/31/24 Nebulizer) vitamin B complex (Vitamins B 1 cap PO QAM #30 caps 10/26/24 Complex capsule) acetylcysteine 200 mg/mL (20 %) 2 ml inhalation BID PRN Chest 03/26/25 solution congestion #100 mL cholecalciferol (vitamin D3) 50 50 mcg PO QPM #90 caps 03/26/25 mcg (2,000 unit) capsule sodium chloride 7 % for 1 inh inhalation BID #240 mL 03/26/25 nebulization FreeStyle Rosalie 2 Sensor (flash #6 ea 05/06/25 glucose sensor) desmopressin 0.2 mg tablet 0.4 mg (2 x 0.2 mg) PO BID #120 05/16/25 tabs naloxone 4 mg/actuation nasal 1 spray intranasal ONCE PRN opioid 05/18/25 spray (Narcan) overdose #2 ea FreeStyle Rosalie 2 Plus Sensor #6 ea 06/04/25 (blood-glucose sensor) dutasteride 0.5 mg capsule 0.5 mg PO QAM #90 caps 06/19/25 albuterol sulfate 90 mcg/actuation 2 inh inhalation Q6H PRN shortness 07/01/25 aerosol inhaler (Ventolin HFA) of breath or wheezing #6.7 grams arformoterol 15 mcg/2 mL solution 2 ml inhalation BID #120 mL 07/01/25 for nebulization (Brovana) budesonide 0.5 mg/2 mL suspension 0.5 mg (2 mL) inhalation BID #60 mL 07/01/25 for nebulization propranolol 120 mg capsule,24 120 mg PO HS #90 caps 08/12/25 hr,extended release docusate sodium 100 mg capsule 100 mg PO BID 30 days #60 caps 08/13/25 ascorbic acid (vitamin C) 250 mg 250 mg PO BID #60 tabs 08/30/25 tablet oxycodone-acetaminophen 5 mg-325 1 tab PO Q6H PRN very severe pain 09/04/25 mg tablet (Percocet) only 1 month #120 tabs ondansetron 8 mg disintegrating 8 mg PO Q8H PRN nausea and 09/10/25 tablet vomiting #90 tabs clonidine 0.1 mg/24 hr weekly 1 patch transdermal Q7D 28 days #4 09/15/25 transdermal patch ea risperidone 2 mg tablet 2 mg PO QAM 30 days #30 tabs 09/15/25 Results & Data (ED) Vital Signs Vital Signs - 24 hr 09/24/25 11:15 09/24/25 11:23 09/24/25 11:29 Temperature 37.0 C Temperature Source Oral Pulse Rate 70 70 Pulse Rate [Apical] Pulse Rate from SpO2 Sensor Pulse Rhythm Regular Respiratory Rate 22 Respiratory Effort / Characteristics Non-Labored Spontaneous Respiratory Depth Normal Blood Pressure 134/75 Blood Pressure [Right Arm] Blood Pressure Mean 94 Blood Pressure Mean [Right Arm] Blood Pressure Position Sitting Pulse Oximetry 98 97 Oxygen Delivery Method Room Air Room Air Oxygen Flow Rate Sepsis Recent Fever Within 48 Hours No Sepsis New/Unexplained Change in Mental Status N/A Sepsis Action Taken by Nursing No Action Required 09/24/25 11:39 09/24/25 12:06 09/24/25 13:00 Temperature Temperature Source Pulse Rate 69 65 Pulse Rate [Apical] Pulse Rate from SpO2 Sensor Pulse Rhythm Respiratory Rate 10 L 14 Respiratory Effort / Characteristics Respiratory Depth Blood Pressure 114/66 136/74 Blood Pressure [Right Arm] Blood Pressure Mean 82 94 Blood Pressure Mean [Right Arm] Blood Pressure Position Pulse Oximetry 96 95 96 Oxygen Delivery Method Room Air Room Air Room Air Oxygen Flow Rate Sepsis Recent Fever Within 48 Hours Sepsis New/Unexplained Change in Mental Status Sepsis Action Taken by Nursing 09/24/25 13:00 09/24/25 14:06 09/24/25 15:00 Temperature Temperature Source Pulse Rate 67 67 68 Pulse Rate [Apical] Pulse Rate from SpO2 Sensor 62 Pulse Rhythm Respiratory Rate 15 20 23 Respiratory Effort / Characteristics Respiratory Depth Blood Pressure 118/75 125/72 Blood Pressure [Right Arm] Blood Pressure Mean 89 89 Blood Pressure Mean [Right Arm] Blood Pressure Position Pulse Oximetry 96 94 Oxygen Delivery Method Room Air Room Air Oxygen Flow Rate Sepsis Recent Fever Within 48 Hours Sepsis New/Unexplained Change in Mental Status Sepsis Action Taken by Nursing 09/24/25 15:54 09/24/25 16:11 09/24/25 16:11 Temperature Temperature Source Pulse Rate 68 Pulse Rate [Apical] Pulse Rate from SpO2 Sensor Pulse Rhythm Respiratory Rate Respiratory Effort / Characteristics Respiratory Depth Blood Pressure Blood Pressure [Right Arm] Blood Pressure Mean Blood Pressure Mean [Right Arm] Blood Pressure Position Pulse Oximetry 88 L 92 Oxygen Delivery Method Room Air Nasal Cannula Oxygen Flow Rate 2 Sepsis Recent Fever Within 48 Hours Sepsis New/Unexplained Change in Mental Status Sepsis Action Taken by Nursing 09/24/25 16:26 Temperature Temperature Source Pulse Rate Pulse Rate [Apical] 68 Pulse Rate from SpO2 Sensor Pulse Rhythm Respiratory Rate 16 Respiratory Effort / Characteristics Respiratory Depth Normal Blood Pressure Blood Pressure [Right Arm] 103/61 Blood Pressure Mean Blood Pressure Mean [Right Arm] 75 Blood Pressure Position Pulse Oximetry 97 Oxygen Delivery Method Nasal Cannula Oxygen Flow Rate 2 Sepsis Recent Fever Within 48 Hours Sepsis New/Unexplained Change in Mental Status Sepsis Action Taken by Nursing Laboratory Data 09/24/25 12:55 09/24/25 12:55 Lab Results 09/24/25 09/24/25 09/24/25 Range/Units 11:24 11:26 12:55 WBC 6.02 (4.8-10.8) K/ul RBC 4.48 L (4.70-6.10) M/uL Hgb 13.1 L (14.0-18.0) g/dl Hct 38.0 L (42.0-52.0) % MCV 84.8 (80.0-100.0) fL MCH 29.2 (25.0-34.0) pg MCHC 34.5 (32.0-36.0) g/dL RDW Std Deviation 43.8 (36.4-46.3) fL RDW Coeff of Yanira 14.3 (11.5-14.5) % Plt Count 155 (130-400) K/uL MPV 9.3 L (9.4-12.4) fL Immature Gran % (Auto) 0.7 % Neut % (Auto) 40.6 % Lymph % (Auto) 44.0 % [place] % (Auto) 9.3 % Eos % (Auto) 4.7 % Baso % (Auto) 0.7 % Neut # (Auto) 2.45 (1.40-6.50) K/uL Lymph # (Auto) 2.65 (1.20-3.40) K/uL [place] # (Auto) 0.56 (0.11-0.59) K/uL Eos # (Auto) 0.28 (0.00-0.50) K/uL Baso # (Auto) 0.04 (0.00-0.20) K/uL Immature Gran # (Auto) 0.04 (0.01-0.20) K/uL PT 11.1 (9.0-12.0) Seconds INR 1.1 (0.9-1.1) VBG pH 7.32 L (7.36-7.41) VBG pCO2 56 H (38-50) mmHg VBG pO2 32 mmHg VBG HCO3 29 mmol/L VBG O2 Saturation < 60.0 % VBG Base Excess 1.6 mEq/L Sodium 138 (136-145) mmol/L Potassium 4.1 (3.5-5.1) mmol/L Chloride 102 (98-107) mmol/L Carbon Dioxide 28 (21-32) mmol/L Anion Gap 8 (3-11) BUN 10 (6-23) mg/dl Creatinine 2.17 H (0.6-1.4) mg/dl Est Cr Clr Drug Dosing 45.9 ml/min eGFR 34.65 BUN/Creatinine Ratio 4.6 L (10-20) Glucose 92 (70-99(Fasting)) mg/dl POC Glucose 79 (70-99) mg/dl Calcium 8.8 (8.6-10.3) mg/dl Magnesium 1.4 L (1.7-2.4) mg/dl Total Bilirubin 0.5 (0.2-1.0) mg/dl AST 19 (13-39) U/L ALT 16 (7-52) U/L Alkaline Phosphatase 58 (34-104) U/L Troponin I High Sens 5.9 (0-20) pg/ml Total Protein 6.1 (6.0-8.3) gm/dl Albumin 3.7 (3.4-5.0) gm/dl Globulin 2.4 L (2.5-4.0) gm/dl Albumin/Globulin Ratio 1.5 (0.9-2) TSH 0.092 L (0.300-4.500) uIu/ml Free T4 1.29 (0.61-1.60) ng/dl Adenovirus (PCR) Not Detected (NotDetected) B. pertussis DNA (PCR) Not Detected (NotDetected) B.parapertussis DNA PCR Not Detected (NotDetected) C. pneumoniae DNA (PCR) Not Detected (NotDetected) Coronavirus OC43 (PCR) Not Detected (NotDetected) Coronavirus HKU1 (PCR) Not Detected (NotDetected) Coronavirus 229E (PCR) Not Detected (NotDetected) SARS-CoV-2 (PCR) Not Detected (NotDetected) Coronavirus NL63 (PCR) Not Detected (NotDetected) Human Metapneumovir PCR Not Detected (NotDetected) Influenza Type A (PCR) Not Detected (NotDetected) Influenza Type B (PCR) Not Detected (NotDetected) M. pneumoniae (PCR) Not Detected (NotDetected) Parainfluenza 1 (PCR) Not Detected (NotDetected) Parainfluenza 2 (PCR) Not Detected (NotDetected) Parainfluenza 3 (PCR) Not Detected (NotDetected) Parainfluenza 4 (PCR) Not Detected (NotDetected) RSV (PCR) Not Detected (NotDetected) Entero/Rhino (PCR) Not Detected (NotDetected) 09/24/25 Range/Units 16:20 WBC (4.8-10.8) K/ul RBC (4.70-6.10) M/uL Hgb (14.0-18.0) g/dl Hct (42.0-52.0) % MCV (80.0-100.0) fL MCH (25.0-34.0) pg MCHC (32.0-36.0) g/dL RDW Std Deviation (36.4-46.3) fL RDW Coeff of Yanira (11.5-14.5) % Plt Count (130-400) K/uL MPV (9.4-12.4) fL Immature Gran % (Auto) % Neut % (Auto) % Lymph % (Auto) % [place] % (Auto) % Eos % (Auto) % Baso % (Auto) % Neut # (Auto) (1.40-6.50) K/uL Lymph # (Auto) (1.20-3.40) K/uL [place] # (Auto) (0.11-0.59) K/uL Eos # (Auto) (0.00-0.50) K/uL Baso # (Auto) (0.00-0.20) K/uL Immature Gran # (Auto) (0.01-0.20) K/uL PT (9.0-12.0) Seconds INR (0.9-1.1) VBG pH (7.36-7.41) VBG pCO2 (38-50) mmHg VBG pO2 mmHg VBG HCO3 mmol/L VBG O2 Saturation % VBG Base Excess mEq/L Sodium (136-145) mmol/L Potassium (3.5-5.1) mmol/L Chloride (98-107) mmol/L Carbon Dioxide (21-32) mmol/L Anion Gap (3-11) BUN (6-23) mg/dl Creatinine (0.6-1.4) mg/dl Est Cr Clr Drug Dosing ml/min eGFR BUN/Creatinine Ratio (10-20) Glucose (70-99(Fasting)) mg/dl POC Glucose 95 (70-99) mg/dl Calcium (8.6-10.3) mg/dl Magnesium (1.7-2.4) mg/dl Total Bilirubin (0.2-1.0) mg/dl AST (13-39) U/L ALT (7-52) U/L Alkaline Phosphatase (34-104) U/L Troponin I High Sens (0-20) pg/ml Total Protein (6.0-8.3) gm/dl Albumin (3.4-5.0) gm/dl Globulin (2.5-4.0) gm/dl Albumin/Globulin Ratio (0.9-2) TSH (0.300-4.500) uIu/ml Free T4 (0.61-1.60) ng/dl Adenovirus (PCR) (NotDetected) B. pertussis DNA (PCR) (NotDetected) B.parapertussis DNA PCR (NotDetected) C. pneumoniae DNA (PCR) (NotDetected) Coronavirus OC43 (PCR) (NotDetected) Coronavirus HKU1 (PCR) (NotDetected) Coronavirus 229E (PCR) (NotDetected) SARS-CoV-2 (PCR) (NotDetected) Coronavirus NL63 (PCR) (NotDetected) Human Metapneumovir PCR (NotDetected) Influenza Type A (PCR) (NotDetected) Influenza Type B (PCR) (NotDetected) M. pneumoniae (PCR) (NotDetected) Parainfluenza 1 (PCR) (NotDetected) Parainfluenza 2 (PCR) (NotDetected) Parainfluenza 3 (PCR) (NotDetected) Parainfluenza 4 (PCR) (NotDetected) RSV (PCR) (NotDetected) Entero/Rhino (PCR) (NotDetected) Administered Medications Sodium Chloride (Nss) 1,000 mls @ 999 mls/hr IV .Q1H1M ONE Stop: 09/24/25 17:44 Last Admin: 09/24/25 16:47 Dose: 999 mls/hr Documented By: MAY Discontinued Medications Magnesium Sulfate/Dextrose (Magnesium Sulfate / D5w) 1 gm in 100 mls @ 100 mls/hr IV NOW STA Stop: 09/24/25 15:46 Last Infusion: 09/24/25 16:20 Dose: Infused Documented By: Admin: 09/24/25 15:02 Dose: 100 mls/hr Documented By: PURVI Imaging Data Radiologist's Impression: Chest X-Ray 09/24/25 11:15 XR chest 1V portable CLINICAL HISTORY: weakness COMPARISON STUDY: 09/13/2025 FINDINGS: Stable cardiac recorder. Stable mild cardiomegaly without pulmonary vascular congestion. Inspiration is shallow. There is interval blunting of the left costophrenic angle. No other consolidation or pleural effusion. No pneumothorax. IMPRESSION: Shallow inspiration with interval blunting of the left costophrenic angle. This could represent atelectasis, early pneumonia, or small left pleural effusion. ACT 112: Negative or not required by law. Electronically signed by: Keon Crump M.D. 09/24/2025 1:[address] 09/24/25 11:33 CT SCAN OF THE BRAIN WITHOUT IV CONTRAST CLINICAL HISTORY: Change in mental status. COMPARISON STUDY: CT of the brain dated 09/13/2025 TECHNIQUE: Unenhanced CT scan of the brain is performed from the vertex to the skull base. Images are reviewed in the axial, sagittal, and coronal planes. A dose lowering technique was utilized adhering to the principles of ALARA. CT DOSE: 625.8 mGy.cm FINDINGS: Brain parenchyma: The brain parenchyma is normal in appearance. There is no hemorrhage, mass effect, or evidence of acute territorial ischemia by CT criteria. Paul-white matter differentiation is preserved. No extra-axial fluid collection is seen. Ventricles, sulci, cisterns: Normal in configuration. 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 Intracranial vasculature: There is atherosclerotic calcification of the cavernous carotid arteries. Calvarium: Unremarkable. Sinuses and mastoids: The visualized paranasal sinuses are clear. The mastoid air cells are well pneumatized. Orbits: The bony orbits are grossly intact. There are bilateral ocular lens implants. IMPRESSION: There is no hemorrhage, mass effect, or evidence of acute territorial ischemia by CT criteria. ACT 112: Negative or not required by law. Electronically signed by: Galindo Mejia M.D. 09/24/2025 1:34 PM Discharge Plan Visit Data Chief Complaint: Weakness Stated Complaint: WEAKNESS ED Provider: Homa Kelley Discharge Problem: Generalized weakness, Ambulatory dysfunction, Hypomagnesemia, QUENTIN (acute kidney injury), Hypoxia Patient Disposition: Admitted As Inpatient Condition: Fair Forms Stand Alone Forms: [facility] Prescriptions Prescriptions: No Action fluticasone propionate [Flonase Allergy Relief] 50 mcg/actuation spray,suspension 1 spray intranasal HS PRN (Reason: allergy symptoms) Qty: 16 0RF Rx Instructions: administer into each nostril (DME) OneTouch Verio test strips Strip See Rx Instructions .MEDSUPPLY Qty: 150 5RF Rx Instructions: check blood sugars 4 times a day (DME) blood-glucose meter [OneTouch Verio Reflect Meter] Misc See Rx Instructions miscellaneous .MEDSUPPLY Qty: 1 0RF Rx Instructions: As directed (DME) lancets [OneTouch Delica Plus Lancet] 33 gauge misc See Rx Instructions .MEDSUPPLY Qty: 150 5RF Rx Instructions: As directed check blood sugars 4 times a day (DME) Oxygen Home Liters Per Minute See Rx Instructions .Route Rx Instructions: 4 L o2 via [place] As directed, cholecalciferol (vitamin D3) 50 mcg (2,000 unit) capsule 50 mcg PO QPM Qty: 90 1RF (DME) FreeStyle Rosalie 2 Sensor Kit See Rx Instructions .Route Qty: 6 3RF Rx Instructions: Change every 14 days desmopressin 0.2 mg tablet 0.4 mg PO BID Qty: 120 5RF (DME) FreeStyle Rosalie 2 Plus Sensor Device See Rx Instructions .Route Qty: 6 3RF Rx Instructions: change every 15 days dutasteride 0.5 mg capsule 0.5 mg PO QAM Qty: 90 2RF propranolol 120 mg capsule,extended release 24hr 120 mg PO HS Qty: 90 3RF docusate sodium 100 mg capsule 100 mg PO BID 30 Days Qty: 60 1RF Patient Comments: 09/14- otc unable to verify ascorbic acid (vitamin C) 250 mg tablet 250 mg PO BID Qty: 60 2RF oxycodone-acetaminophen [Percocet] 5-325 mg tablet 1 tab PO Q6H PRN (Reason: very severe pain only) 30 Days Qty: 120 0RF ondansetron 8 mg tablet,disintegrating 8 mg PO Q8H PRN (Reason: nausea and vomiting) Qty: 90 1RF (DME) FreeStyle Rosalie 2 [place] Misc See Rx Instructions .Route Qty: 1 0RF Rx Instructions: Check blood glucose before each meal (DME) nebulizers [Compact Compressor Nebulizer] Misc See Rx Instructions .Route Qty: 1 0RF Rx Instructions: One compact compressor nebulizer. Use as directed. Please include tubing, mouth piece and cup. ipratropium-albuterol 0.5 mg-3 mg(2.5 mg base)/3 mL solution for nebulization 3 ml inhalation QID PRN (Reason: wheezing) Qty: 90 0RF albuterol sulfate [Ventolin HFA] 90 mcg/actuation HFA aerosol inhaler 2 inh inhalation Q6H PRN (Reason: shortness of breath or wheezing) Qty: 6.7 2RF arformoterol [Brovana] 15 mcg/2 mL solution for nebulization 2 ml inhalation BID Qty: 120 7RF budesonide 0.5 mg/2 mL suspension for nebulization 0.5 mg inhalation BID Qty: 60 7RF hydrocortisone 10 mg tablet 10 mg PO QPM Rx Instructions: 2 tabs (20mg) in AM, 1 tab (10mg) in PM double dose in times of stress magnesium oxide 400 mg (241.3 mg magnesium) tablet 400 mg PO HS Hold Instructions: hold until diarrhea resolved - magnesium supplement can cause diarrhea sodium chloride 7 % solution for nebulization 1 inh inhalation BID Qty: 240 3RF acetylcysteine 200 mg/mL (20 %) solution 2 ml inhalation BID PRN (Reason: Chest congestion) Qty: 100 6RF Baqsimi 3 mg/actuation spray,non-aerosol 3 mg intranasal ONCE PRN (Reason: Severe Hypoglycemia) Rx Instructions: for treatment of severe hypoglycemia, second dose may be given if patient does not respond after 15 minutes . Per caregiver, pt has never has to use this medication. vitamin B complex [Vitamins B Complex] Capsule 1 cap PO QAM Qty: 30 0RF Patient Comments: 09/14- otc unable to verify Norditropin FlexPro 5 mg/1.5 mL (3.3 mg/mL) pen injector 3 mg SQ QPM divalproex 500 mg tablet extended release 24 hr 1,000 mg PO QAM naloxone [Narcan] 4 mg/actuation spray,non-aerosol 1 spray intranasal ONCE PRN (Reason: opioid overdose) Qty: 2 2RF hydrocortisone 10 mg tablet 20 mg PO QAM Rx Instructions: 2 tabs (20mg) in AM, 1 tab (10mg) in PM double dose in times of stress clopidogrel 75 mg tablet 75 mg PO QPM famotidine 20 mg tablet 20 mg PO QAM lisinopril 10 mg tablet 20 mg PO QPM levothyroxine 200 mcg tablet 200 mcg PO QAM ramelteon 8 mg tablet 8 mg PO QPM levetiracetam 1,000 mg tablet 250 mg PO BID lacosamide 150 mg tablet 150 mg PO BID ferrous sulfate 325 mg (65 mg iron) tablet 325 mg PO BID Rx Instructions: you can take this every other day - it works just as well and causes fewer bowel problems insulin glargine [Lantus Solostar U-100 Insulin] 100 unit/mL (3 mL) insulin pen 12 unit SUBCUT HS Rx Instructions: Per Dr. Linares last pt last spoke w. him. clonidine 0.1 mg/24 hr Patch Weekly 1 patch transdermal Q7D 28 Days Qty: 4 0RF risperidone 2 mg Tablet 2 mg PO QAM 30 Days Qty: 30 0RF Referrals Referrals: Pro,Larry Crisostomo MD [Primary Care Provider] -
[2025-09-24 12:23] LABS: Chlamydia pneumoniae PCR Not Detected (NotDetected); Coronavirus 229E PCR Not Detected (NotDetected); Coronavirus CoV-2 (COVID19)PCR Not Detected (NotDetected); Coronavirus HKU1 PCR Not Detected (NotDetected); Coronavirus NL63 PCR Not Detected (NotDetected); Coronavirus OC43PCR Not Detected (NotDetected); Human Metapneumovirus PCR Not Detected (NotDetected); Parainfluenza Virus 1 PCR Not Detected (NotDetected); Parainfluenza Virus 2 PCR Not Detected (NotDetected); Parainfluenza Virus 3 PCR Not Detected (NotDetected); Parainfluenza Virus 4 PCR Not Detected (NotDetected); Respiratory Syncytial VirusPCR Not Detected (NotDetected); Rhinovirus/Enterovirus PCR Not Detected (NotDetected)
[2025-09-24 13:12] LABS: Base Excess VBG 1.6 mEq/L; HCO3 VBG 29 mmol/L; Oxygen Saturation VBG < 60.0 %; PCO2 VBG 56 mmHg (38-50); PO2 VBG 32 mmHg; pH VBG 7.32 (7.36-7.41)
--- NOTE | 2025-09-24 13:27 | Electrocardiogram Report ---
Test Reason : Blood Pressure : */* mmHG Vent. Rate : 69 BPM Atrial Rate : 69 BPM P-R Int : 188 ms QRS Dur : 98 ms QT Int : 438 ms P-R-T Axes : 48 -19 32 degrees QTcB Int : 469 ms Normal sinus rhythm Normal ECG When compared with ECG of 15-Sep-2025 05:25, Nonspecific T wave abnormality no longer evident in Anterior leads QT has shortened Confirmed by Larry Phillips ([id number]) on 09/24/2025 1:27:17 PM Referred By: Confirmed By: Larry Phillips
[2025-09-24 13:33] LABS: Hematocrit (blood only) 38.0 % (42.0-52.0); Hemoglobin 13.1 g/dl (14.0-18.0); Immature Granulocytes # (auto) 0.04 K/uL (0.01-0.20); Immature Granulocytes % (auto) 0.7 %; Mean Corpuscular Hemoglobin 29.2 pg (25.0-34.0); Mean Corpuscular Volume 84.8 fL (80.0-100.0); Platelet Count 155 K/uL (130-400); RDW Standard Deviation 43.8 fL (36.4-46.3); Red Blood Count 4.48 M/uL (4.70-6.10); White Blood Count 6.02 K/ul (4.8-10.8)
--- NOTE | 2025-09-24 13:36 | CT Scan Report ---
CT SCAN OF THE BRAIN WITHOUT IV CONTRAST CLINICAL HISTORY: Change in mental status. COMPARISON STUDY: CT of the brain dated 09/13/2025 TECHNIQUE: Unenhanced CT scan of the brain is performed from the vertex to the skull base. Images are reviewed in the axial, sagittal, and coronal planes. A dose lowering technique was utilized adherin g to the principles of ALARA. CT DOSE: 625.8 mGy.cm FINDINGS: Brain parenchyma: The brain parenchyma is normal in appearance. There is no hemorrhage, mass effect, or evidence of acute territorial ischemia by CT criteria. Paul-white matter differentiation is preser leonardo. No extra-axial fluid collection is seen. Ventricles, sulci, cisterns: Normal in configuration. 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 Intracranial vasculature: There is atherosclerotic calcification of the cavernous carotid arteries. Calvarium: Unremarkable. Sinuses and mastoids: The visualized paranasal sinuses are clear. The mastoid air cells are well pneu matized. Orbits: The bony orbits are grossly intact. There are bilateral ocular lens implants. IMPRESSION: There is no hemorrhage, mass effect, or evidence of acute territorial ischemia by CT [place]. ACT 112: Negative or not required by law. Electronically signed by: Galindo Mejia M.D. 09/24/2025 1:34 PM
[2025-09-24 13:49] LABS: Alanine Aminotransferase 16.0 U/L (7-52); Albumin Globulin Ratio 1.5 (0.9-2); Albumin Level 3.7 gm/dl (3.4-5.0); Alkaline Phosphatase 58.0 U/L (34-104); Anion Gap 8.0 (3-11); Bilirubin,Total 0.5 mg/dl (0.2-1.0); Blood Urea Nitrogen 10.0 mg/dl (6-23); Calcium 8.8 mg/dl (8.6-10.3); Carbon Dioxide 28.0 mmol/L (21-32); Chloride 102.0 mmol/L (98-107); Creatinine Clr Calc Pharmacy 45.9 ml/min; Globulin 2.4 gm/dl (2.5-4.0); Glucose 92.0 mg/dl (70-99(Fasting)); Magnesium 1.4 mg/dl (1.7-2.4); Potassium 4.1 mmol/L (3.5-5.1); Sodium 138.0 mmol/L (136-145); Total Protein 6.1 gm/dl (6.0-8.3)
[2025-09-24 13:52] LABS: INR 1.1 (0.9-1.1); Prothrombin Time 11.1 Seconds (9.0-12.0)
--- NOTE | 2025-09-24 13:55 | XRay Report ---
XR chest 1V portable CLINICAL HISTORY: weakness COMPARISON STUDY: 09/13/2025 FINDINGS: Stable cardiac recorder. Stable mild cardiomegaly without pulmonary vascular congestion. In spiration is shallow. There is interval blunting of the left costophrenic angle. No other consolidati on or pleural effusion. No pneumothorax. IMPRESSION: Shallow inspiration with interval blunting of the left costophrenic angle. This could re present atelectasis, early pneumonia, or small left pleural effusion. ACT 112: Negative or not required by law. Electronically signed by: Keon Crump M.D. 09/24/2025 1:54 PM
[2025-09-24 13:57] LABS: Thyroid Stimulating Hormone 0.092 uIu/ml (0.300-4.500)
[2025-09-24 14:34] LABS: T4 Free Thyroxine 1.29 ng/dl (0.61-1.60)
[2025-09-24] MEDS: MAGNESIUM SULFATE / D5W 1 GM/100 ML BAG IV STA ×2 (15:02→17:14)
[2025-09-24] MEDS: SODIUM CHLORIDE 0.9% 1,000 ML IV ONE ×2 (16:47→18:14)
--- NOTE | 2025-09-24 17:38 | History & Physical Report ---
Date of Service September 24, 2025 Assessment & Plan (1) Generalized weakness: (2) Ambulatory dysfunction: (3) QUENTIN (acute kidney injury): (4) Hypomagnesemia: Francois Haas is a 55-year-old man with past medical history of psychogenic nonepileptic seizure, bipolar disorder, diabetes insipidus, panhypopituitarism, asthma, demyelinating disease, GERD, ulcerative colitis, depression, anxiety, and medication noncompliance. He presented to the ED at the advice of his outpatient physical therapist due to generalized weakness, fatigue, and ambulatory dysfunction. He was not wearing supplemental O2 on arrival however became hypoxic on room air and was placed on 2 L NC. Patient reports he wears 4 L NC during the daytime and uses CPAP at bedtime. Workup in the ED revealed electrolyte abnormalities, QUENTIN. He was admitted for management of such. #Generalized weakness | Ambulatory dysfunction - Likely multifactorial between electrolyte abnormalities, dehydration, and generalized deconditioning from frequent hospitalizations - PT/OT consulted - Additional treatment as outlined below #QUENTIN - Baseline Cr 0.7-1.0. Creatinine on admission 2.17 - Suspect secondary to poor oral intake - S/p 2 L NSS in ED. Continue with maintenance IV fluids with NSS @80 ml/h - Hold lisinopril - Trend BMP with AM labs #Hypomagnesemia - Mag low at 1.4 on admission - S/p 1 g mag IV x 2 in ED. Replete with additional 1 g mag IV x 1 on admission - Continue home Mag-Ox 400 mg daily - Trend mag with AM labs #Asthma/COPD | Chronic hypoxemic respiratory failure | CORINA - baseline O2 requirement of 4 L via NC during the daytime and CPAP HS - CXR notes shallow inspiration with interval blunting of the left costophrenic angle - this could represent atelectasis, early pneumonia, or small left pleural effusion - Respiratory BioFire negative - Encourage incentive spirometer Q1HWA - Duonebs available PRN - Continue home inhalers/nebs - CPAP HS #PNES, remote epileptic seizures - Continue oral VPA, Vimpat, levetiracetam #Panhypopituitarism | Diabetes insipidus - followed by [facility] endo - Continue levothyroxine - Continue desmopressin - Provide stress dose steroids with oral hydrocortisone at double normal dosing - Can resume growth hormone and testosterone treatment outpatient #Diabetes type 2 - No longer on metformin because of recurrent lactic acidosis. Recently hypoglycemias have been more of the issue - Home regimen held while inpatient - Use SSI while admitted - Pharmacy glycemic consult placed given stress dose steroid usage - A1c added to AM labs #Bipolar disorder | PTSD - Sees therapist every other week. Followed by Dr. Woods - Continue usual mental health meds #Atrial fibrillation - S/p watchman 02/15/24 - Continue Plavix, aspirin, propranolol #HTN | HLD - continue beta benjamín, rosuvastatin - Lisinopril on hold with QUENTIN #Chronic back and R foot/ankle pain - Followed with palliative care clinic previously - Continue home Percocet PRN - Uses CAM boot when ambulating. Follows with Dr. Phillips and [facility] PPx: SCDs Dispo: Admission to [facility] Reviewed prior medical records. History of Present Illness Chief Complaint: Generalized weakness Primary Care Provider: Larry Amaral MD Waldo is a 55-year-old man with past medical history of psychogenic nonepileptic seizure, bipolar disorder, diabetes insipidus, panhypopituitarism, asthma, demyelinating disease, GERD, ulcerative colitis, depression, anxiety, and medication noncompliance he presented from home at the advice of his outpatient physical therapist with generalized weakness and fatigue. At the time of my exam, the patient was lying in bed sleeping soundly. He initially did not arouse to my voice or gentle touch but did arouse once sternal rub was performed. History is limited due to his lethargy. He reports "feeling blah" x 1 week. He reports his weakness has progressively worsened over this week. He has also had a reduced appetite and oral intake. He denies any specific symptoms including headache, sinus congestion, cough, sore throat, shortness of breath, chest pain, N/V/D, abdominal pain, urinary symptoms. He reports his main complaints at this time are feeling extremely weak and fatigued. He failed his ambulatory trial in the ED. Patient initially reports stopping his medications 1 week ago. He then clarifies that he stopped his medications for 1 week prior to his last hospitalization, but has been consistently taking them since his most recent hospital discharge. He reports taking his regular morning medications today. During his last hospitalization, he was started on a clonidine patch weekly and risperidone 2 mg daily, and he was discontinued on Remeron, quetiapine, venlafaxine, prazosin. He reports using supplemental O2 at baseline and reports wearing 4 L O2 via NC during the daytime and using a CPAP at bedtime. Vitals on admission are stable. Labs on admission are significant for anemia with Hgb 13.1 which is improved from prior, mild respiratory acidosis, QUENTIN with creatinine 2.17, hypomagnesemia with mag 1.4, TSH low at 0.092 with normal free T4. No leukocytosis. Platelets WNL. Sodium and potassium WNL. Liver enzymes WNL. Respiratory BioFire negative. CXR on admission reveals shallow inspiration with interval blunting of the left costophrenic anglethis could represent atelectasis, early pneumonia, or small left pleural effusion. Head CT reveals no hemorrhage, mass effect, or evidence of acute territorial ischemia. We discussed code status, patient wishes to be a full code. Allergies Allergy/AdvReac Type Severity Reaction Status Date / Time clindamycin Allergy Intermediate SWELLING Verified 09/24/25 17:25 Iodinated Contrast Media Allergy Intermediate face/eye Verified 09/24/25 17:25 swelling Quinolones Allergy Intermediate HIVES Verified 09/24/25 17:25 tomato Allergy Intermediate swelling Verified 09/24/25 17:25 metformin AdvReac Unknown lactic Verified 09/24/25 17:25 acidosis Home Medications Medication Instructions Recorded Confirmed Type fluticasone propionate 50 1 spray intranasal HS PRN allergy 03/16/23 09/24/25 Rx mcg/actuation nasal symptoms #16 grams spray,suspension (Flonase Allergy Relief) FreeStyle Rosalie 2 [place] (flash #1 ea 05/13/23 09/05/25 Rx glucose scanning reader) blood sugar diagnostic (FashioholicTouch #150 ea 11/22/23 09/05/25 Rx Verio test strips) blood-glucose meter (FashioholicTouch #1 ea 11/22/23 09/05/25 Rx Verio Reflect Meter) lancets 33 gauge (OneTouch Delica #150 ea 11/22/23 09/05/25 Rx Plus Lancet) glucagon 3 mg/actuation nasal 3 mg intranasal DIRECTED PRN 04/06/24 09/24/25 History spray (Baqsimi) Severe Hypoglycemia ipratropium 0.5 mg-albuterol 3 mg 3 ml inhalation QID PRN wheezing 07/31/24 09/24/25 Rx (2.5 mg base)/3 mL nebulization #90 mL soln nebulizers (Compact Compressor #1 ea 07/31/24 09/05/25 Rx Nebulizer) vitamin B complex (Vitamins B 1 cap PO QAM #30 caps 10/26/24 09/24/25 Rx Complex capsule) Oxygen Home 01/30/25 09/05/25 History magnesium oxide 400 mg (241.3 mg 400 mg PO HS 03/01/25 09/24/25 History magnesium) tablet acetylcysteine 200 mg/mL (20 %) 2 ml inhalation BID PRN Chest 03/26/25 09/24/25 Rx solution congestion #100 mL cholecalciferol (vitamin D3) 50 50 mcg PO QPM #90 caps 03/26/25 09/24/25 Rx mcg (2,000 unit) capsule sodium chloride 7 % for 1 inh inhalation BID #240 mL 03/26/25 09/24/25 Rx nebulization FreeStyle Rosalie 2 Sensor (flash #6 ea 05/06/25 09/05/25 Rx glucose sensor) desmopressin 0.2 mg tablet 0.4 mg (2 x 0.2 mg) PO BID #120 05/16/25 09/24/25 Rx tabs naloxone 4 mg/actuation nasal 1 spray intranasal ONCE PRN opioid 05/18/25 09/24/25 Rx spray (Narcan) overdose #2 ea somatropin 5 mg/1.5 mL (3.3 mg/mL) 3 mg subcut QPM 05/29/25 09/24/25 History subcutaneous pen injector (Norditropin FlexPro) FreeStyle Rosalie 2 Plus Sensor #6 ea 06/04/25 09/05/25 Rx (blood-glucose sensor) hydrocortisone 10 mg tablet 10 mg PO QPM 06/13/25 09/24/25 History dutasteride 0.5 mg capsule 0.5 mg PO QAM #90 caps 06/19/25 09/24/25 Rx albuterol sulfate 90 mcg/actuation 2 inh inhalation Q6H PRN shortness 07/01/25 09/24/25 Rx aerosol inhaler (Ventolin HFA) of breath or wheezing #6.7 grams arformoterol 15 mcg/2 mL solution 2 ml inhalation BID #120 mL 07/01/25 09/24/25 Rx for nebulization (Brovana) budesonide 0.5 mg/2 mL suspension 0.5 mg (2 mL) inhalation BID #60 mL 07/01/25 09/24/25 Rx for nebulization hydrocortisone 10 mg tablet 20 mg PO QAM 07/02/25 09/24/25 History clopidogrel 75 mg tablet 75 mg PO QPM 08/06/25 09/24/25 History famotidine 20 mg tablet 20 mg PO QAM 08/06/25 09/24/25 History lacosamide 150 mg tablet 150 mg PO BID 08/06/25 09/24/25 History levetiracetam 1,000 mg tablet 250 mg PO BID 08/06/25 09/24/25 History levothyroxine 200 mcg tablet 200 mcg PO QAM 08/06/25 09/24/25 History lisinopril 10 mg tablet 20 mg PO QPM 08/06/25 09/24/25 History ramelteon 8 mg tablet 8 mg PO QPM 08/06/25 09/24/25 History propranolol 120 mg capsule,24 120 mg PO HS #90 caps 08/12/25 09/24/25 Rx hr,extended release docusate sodium 100 mg capsule 100 mg PO BID 30 days #60 caps 08/13/25 09/24/25 Rx ascorbic acid (vitamin C) 250 mg 250 mg PO BID #60 tabs 08/30/25 09/24/25 Rx tablet oxycodone-acetaminophen 5 mg-325 1 tab PO Q6H PRN very severe pain 09/04/25 09/24/25 Rx mg tablet (Percocet) only 1 month #120 tabs ondansetron 8 mg disintegrating 8 mg PO Q8H PRN nausea and 09/10/25 09/24/25 Rx tablet vomiting #90 tabs divalproex 500 mg tablet,extended 1,000 mg PO QAM 09/11/25 09/24/25 History release 24 hr ferrous sulfate 325 mg (65 mg 325 mg PO BID 09/14/25 09/24/25 History iron) tablet insulin glargine 100 unit/mL (3 12 unit subcut HS 09/14/25 09/24/25 History mL) subcutaneous pen (Lantus Solostar U-100 Insulin) clonidine 0.1 mg/24 hr weekly 1 patch transdermal Q7D 28 days #4 09/15/25 09/24/25 Rx transdermal patch ea risperidone 2 mg tablet 2 mg PO QAM 30 days #30 tabs 09/15/25 09/24/25 Rx Past Med/Surg History Problem List (Updated 09/24/25 @ 16:59 by Homa Kelley MD) Hypoxia (Acute) QUENTIN (acute kidney injury) (Acute) Hypomagnesemia (Acute) Ambulatory dysfunction (Acute) Generalized weakness (Acute) Nonadherence to medication PTSD (post-traumatic stress disorder) Diabetes insipidus Chronic anemia (Acute) Vision loss, left eye Entered 05/2025 Hypopituitarism Psychogenic nonepileptic seizure Asthma Presbyopia of both eyes Epiretinal membrane (ERM) of left eye Ocular hypertension Demyelinating disease Esophageal dysphagia 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 tested positive in Aug 2023 [place] Current use of proton pump inhibitor Chronic migraine without aura or status migrainosus Ulcerative colitis Mixed hyperlipidemia Lumbar stenosis with neurogenic claudication Essential tremor Mitral regurgitation Anti-cyclic citrullinated peptide antibody positive Internal hemorrhoids Prostate mass benign Medical History Adrenal insufficiency On hydrocortisone Arachnoid cyst of posterior cranial fossa Benign congenital arachnoid cyst in the posterior fossa per 01/2025 brain MRI Atrial fibrillation (02/15/24) no cardioversion- has loop recorder and watchmans device, follows with dr. kilgore (will see 09/18/25) Back pain at L4-L5 level will see [facility] surgeon on 09/13/25 Bilateral hand pain Bipolar 1 disorder Bladder mass benign Blood loss anemia (06/2025) admit to [facility], required blood transfusion BPH with obstruction/lower urinary tract symptoms Cerebral concussion May 2023 during seizure > no further issues CHF (congestive heart failure) EF WNL on 10/2024 ECHO CHI (closed head injury) reports multiple due to seizures/falls Chronic left sacroiliac pain Chronic narcotic dependence Chronic respiratory failure with hypoxia O2 4L nc Chronic venous insufficiency CKD (chronic kidney disease), stage III follows with neph- dr. espinoza (will see 10/2025) Closed fracture of right fibula with malunion will see [facility] surgeon on 09/13/25- wears boot daily Compartment syndrome of lower extremity (02/2025) per hx COPD (chronic obstructive pulmonary disease) follows with dr. mccarthy (last seen april 2025)- well controlled with nebs/inhaler- last used rescue inhaler jun 2025- wears O24L at all times Demyelinating disease Depression with anxiety Epidural lipomatosis Essential tremor Frequent falls most recent- last week, states "im very sore" - states will see pcp dr. amaral on 09/13/25 Generalized pain Generalized weakness Growth hormone deficiency on medication (treated with growth hormone per endocrine) History of COVID-19 10/2021 - fatigue; resolved. History of pneumonia (03/2025) states has been admitted for total of 36 days ytd at [facility] for pneumonia History of recent hospitalization reports has been admitted to hospital over 100 days in 2024- last was at [facility] 06/2025- all at [facility] HTN (hypertension) Hyperactive gag reflex Hyperphosphatemia Hypokalemia Hypomagnesemia Hypothyroidism Central hypothyroidism Idiopathic polyneuropathy Kidney stones no current pain Lower extremity edema LPRD (laryngopharyngeal reflux disease) Lumbar stenosis with neurogenic claudication Migraine Mitral valve regurgitation follows with Dr. 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 on medication (DDAVP) follows with endocrine Pituitary hypogonadism Follows with endocrinology- Pituitary neoplasm Dx'ed in 2001- s/p surgical resection and XRT Repeat surgery in 2018 secondary to tumor regrowth at [facility] - Follows with endo- repeat pituitary MRI scheduled 2027 Presence of cardiac device Loop recorder > placed at [facility]- last checked fall 2023 PTSD (post-traumatic stress disorder) Rectal bleeding on occasion Recurrent seizures - PNES per records goes sometimes months without seizures, then may may have 2 in one day- last seizure-June 2025- grand mal- follows with dr. villa (07/2025) Restrictive lung disease follows with dr. mccarthy, on O2 4L nc at all times Right leg pain had seizure 09/2024 "that messed up my back and leg" pt reports will go to [facility] on 09/13/25 to see a neurosurgeon Right lumbar radiculopathy Secondary adrenal insufficiency Sensorineural hearing loss of both ears Shortness of breath only if not wearing oxygen Spondylolysis, lumbar region Syncope and collapse Reason for loop recorder No recent issues since bed bound from femur fracture in Sep 2022 per patient Therapeutic opioid-induced constipation (OIC) Transient alteration of awareness Ulcerative colitis Uncontrolled type 2 diabetes mellitus with hyperglycemia Suspect low glycation index meaning his A1c is typically about 2 points lower than what his average glucose would suggest. Urinary tract obstruction due to kidney stone Vertigo Surgical History History of arthroplasty of left knee (2014) History of bladder surgery remove mass History of brain surgery (2017) x2---2004 @ [facility] [place], 2018 @ [facility]--for brain tumors > caused epilepsy History of cardiac cath (07/2021) 07/2021 - no stents- no mi - [facility]- follows with dr. kilgore History of colonoscopy History of esophagogastroduodenoscopy (EGD) History of lithotripsy History of lumbar fusion (07/2022) [facility] Jul 2022 - History of open reduction and internal fixation (ORIF) procedure (2009) right 5th metatarsal, has pins and cadaver bone, still gets painful- 2009 right femur- as a child History of prostate surgery (2016) remove mass- not malignant History of tooth extraction History of wisdom tooth extraction Hx of flexible sigmoidoscopy (07/03/25) Presence of Watchman left atrial appendage closure device (02/2024) eric S/P epidural steroid injection S/P TURP (status post transurethral resection of prostate) Family History Grandmother (Paternal) Family history of diabetes mellitus Aunt Family history of diabetes mellitus Uncle Family history of diabetes mellitus Father , at 85 years of age from dementia. Prostate cancer Heart disease Osteoarthritis Mother , at 84 years of age from acute MD. Cardiac disorder Grandmother (Maternal) Myocardial infarction Other Asthma Cancer Hypertension No family history of adverse response to anesthesia No family history of bleeding disorder Stroke Denies family history of Ovarian cancer Breast cancer Colorectal cancer Social History Smoking Status: Never smoker Tobacco Type: Smokeless Tobacco (Dip or Chew) Second Hand Exposure: No; Do You Dip or Chew Tobacco: No; Hx Alcohol Use: No Hx Substance Use: No Preferred Language: Albanian Communication Ability: Effective Communication Ability Comment: Unable to obtain due to patient condition. Visual Impairment: Limited Hearing Ability: Normal Historical Site Guide Required: No Beliefs That Will Affect Care: None marital status: Single Current Living Situation: Spouse Current Living Situation Comment: and daughter in [place] current occupational status: disabled How many Children do You have: 3 How many Children do You have Comment: able to assist with care if needed Feels Safe at Home: Yes Childhood Exposure to Second-Hand Smoke: Yes (parents smoked) Diet: regular Diet Comment: going to be starting low carb/low calorie diet. caffeine: No (1/2 20 oz bottle of mountain dew. ) during the past year weight has: increased > 10 lbs Physical Activity Frequency: Daily Physical Activity Frequency Comment: walking, 1.5 miles daily. Seatbelt Use: always Do you think of yourself as: straight/heterosexual Gender Identity: Male Assistive Devices: CPAP and Oxygen - at Night Review of Systems Review of Systems: All systems reviewed & are unremarkable except as noted in HPI & below Physical Exam Physical Exam: General: No acute distress, nondiaphoretic, well-developed, well-nourished. Very lethargic. Skin: Warm, dry. No rashes or peripheral edema noted. Appears clinically dehydrated with poor skin turgor and dry mucous membranes. Cardiac: Regular rate and rhythm without murmurs gallops or rubs. Pulm: Clear to auscultation bilaterally without wheezes, rales or rhonchi. Normal respiratory effort. 98% on 2 L NC. Abdominal: Soft, nontender, nondistended. Bowel sounds present. MSK: RLE in walking boot. Neuro: A&O x3. No focal neurological deficits. Results & Data Results & Data Vital Signs (Past 12 Hours) Vital Signs Temp Pulse Pulse Resp BP BP Pulse Ox 09/24/25 16:26 68 16 103/61 97 09/24/25 16:11 92 09/24/25 16:11 88 L 09/24/25 15:54 68 09/24/25 15:00 68 23 09/24/25 14:06 67 20 125/72 94 09/24/25 13:00 67 15 118/75 96 09/24/25 13:00 96 09/24/25 12:06 65 14 136/74 95 09/24/25 11:39 69 10 L 114/66 96 09/24/25 11:29 97 09/24/25 11:23 70 09/24/25 11:15 98.6 F 70 22 134/75 98 O2 Del Method O2 Flow Rate 09/24/25 16:26 Nasal Cannula 2 09/24/25 16:11 Nasal Cannula 2 09/24/25 16:11 Room Air 09/24/25 15:54 09/24/25 15:00 09/24/25 14:06 Room Air 09/24/25 13:00 Room Air 09/24/25 13:00 Room Air 09/24/25 12:06 Room Air 09/24/25 11:39 Room Air 09/24/25 11:29 Room Air 09/24/25 11:23 09/24/25 11:15 Room Air Laboratory Results Reviewed CBC with differential Reviewed coagulation studies Reviewed VBG Reviewed CMP/chemistries Reviewed respiratory bio fire Diagnostic Findings Reviewed CXR Reviewed head CT Reviewed EKG Supervising Physician Co-Signing Physician Notes I personally examined the patient and verified all tinoco points of history and exam, discussed case, and agree with decision making with Morteza CARRILLO Lethargic for me, although in discussion with admitting PA, he was lethargic for her as well until she did a sternal rub, at which point he woke up and said "you are pretty, I will talk to you"he gave no such response to me. Vitals noted, in general he is somewhat somnolent although he does grunt to physical exam. HEENT normocephalic atraumatic mucous membranes slightly dry. Cardio is regular rate. Lungs clear without rales rhonchi or wheezes. Abdomen soft nondistended nontender no masses organomegaly. Right lower extremity is in a walking boot, he has no edema no calf tenderness. No lateralizing signs. Lethargy and weaknessalmost certainly multifactorial including deconditioning, probably polypharmacybut also given his acute renal failure and somewhat hypotensive blood pressure readingshave to suspect a degree of hypovolemia. He has been given 2 L of saline by the ER, will continue with 125 an hour of LR, and hold his clonidine and propranolol as well as stress dose steroids for now. Follow his hemodynamics and follow his labs. PT/OT eval and treat. Otherwise as above. Repeat blood gas. PG Care Time/CCT Total # of Minutes Spent Total Time Spent with Patient: Total time spent is greater than 50% in coordination of care (as documented) at patient's floor/unit and/or counseling patient: Coding Level of Care Code 28991 INT INP/OBS CARE 3/75MIN Diagnoses Generalized weakness R53.1 Ambulatory dysfunction R26.2 QUENTIN (acute kidney injury) N17.9 Hypomagnesemia E83.42
[2025-09-24 19:43] LABS: Appearance Urine Cloudy (Clear); Bacteria Urine Automated None Seen (None Seen); Epithelial Cell Urine Auto 0-2 /hpf (0-2); Glucose Urine UA Negative (Negative); WBC Urine Automated 0-5 /hpf (0-5)
[2025-09-24] MEDS ORDERED: GLUCOSE 10 TAB/TUBE PO PRN (20:30)
[2025-09-24] MEDS ORDERED: ALUMINUM/MAGNESIUM SUSP 30 ML UDC PO PRN (20:30)
[2025-09-24] MEDS ORDERED: PHARMACY GLYCEMIC MGMT CONSULT PRN (20:30)
[2025-09-24] MEDS ORDERED: DEXTROSE 50% 50 ML SYRINGE IV PRN (20:30)
[2025-09-24] MEDS ORDERED: POLYETHYLENE (MIRALAX) 17 GM PACK PO PRN (20:30)
[2025-09-24] MEDS ORDERED: GLUCOSE 40% GEL 15 GM TUBE PO PRN (20:30)
[2025-09-24] MEDS ORDERED: CARBOHYDRATES FOR HYPOGLYCEMIA PO PRN (20:30)
[2025-09-24] MEDS ORDERED: ALBUT/IPRATROP 3MG/0.5MG NEB 3 ML VIAL NEB PRN (20:30)
[2025-09-24] MEDS ORDERED: ALBUTEROL HFA 8 GM INHALER INH PRN (20:30)
[2025-09-24] MEDS ORDERED: ONDANSETRON INJ 2 MG/ML 2 ML VIAL IV PRN (20:30)
[2025-09-24] MEDS ORDERED: GLUCAGON FOR INJ 1 MG VIAL SQ PRN (20:30)
[2025-09-24] MEDS: LACTATED RINGER'S 1,000 ML IV SCH (20:40)
--- NOTE | 2025-09-24 20:57 | Pharmacy Report ---
Pharmacy Glycemic Short Note 2 - Date of Service September 24, 2025 - Glycemic Short BSG Results (Last 24 hours): 09/24/25 09/24/25 09/24/25 11:24 12:55 16:20 Glucose 92 POC Glucose 79 95 09/24/25 20:43 Glucose POC Glucose 78 OUTPATIENT ANTIDIABETIC REGIMEN: * Lantus 12 units HS ASSESSMENT: * Patient admitted with weakness/QUENTIN - pharmacy consulted for glycemic management. BSGs<100 on admission, will hold basal insulin and utilize novolog for now. PLAN FOR INPATIENT GLYCEMIC CONTROL: * Hold outpatient oral diabetes medications * Basal insulin * Lantus - hold * Bolus insulin * NovoLog per scale ACHS or Q6hrs while NPO * Goal Range: Low 120 mg/dL - High 160 mg/dL * Correction Factor: 35 mg/dL/unit * Nutritional / Prandial insulin per carb ratio of 1 unit per 12 grams CHO consumed
[2025-09-24] MEDS ORDERED: LANTUS PER UNIT CHARGE SQ SCH (21:00)
[2025-09-24] MEDS ORDERED: SODIUM CHLOR 7% 4 ML NEB INH SCH (21:00)
[2025-09-24] MEDS: INSULIN ASPART PER UNIT CHARGE SC SCH (21:18)
[2025-09-24] MEDS: BUDESONIDE 0.5 MG/2 ML VIAL (PULMICORT) INH SCH (21:23)
[2025-09-24] MEDS: SODIUM CHLOR 7% 4 ML NEB INH SCH (21:23)
[2025-09-24] MEDS: FORMOTEROL 20 MCG/2 ML VIAL INH SCH (21:23)
[2025-09-24 21:27] LABS: iSTAT Art Bld Gas Base Excess -2.0 mmol/L (-9-1.8); iSTAT Art Bld Gas pCO2 Correct 48 mmHg (35-46); iSTAT Art Bld Gas pH Corrected 7.318 (7.35-7.45); iSTAT Arterial Blood Gas pO2 C 121
[2025-09-24] MEDS: MAGNESIUM SULFATE / D5W 1 GM/100 ML BAG IV ONE (21:42)
[2025-09-24] MEDS: DOCUSATE SODIUM 100 MG CAP PO SCH (21:42)
[2025-09-24] MEDS: REMOVE CLONIDINE PATCH STA (21:46)
[2025-09-24] MEDS: MAGNESIUM OXIDE 400 MG TAB PO SCH (21:47)
[2025-09-24] MEDS: CHOLECALCIFEROL 25 MCG (1000 UNITS) TAB PO SCH (21:47)
[2025-09-24] MEDS: FERROUS SULFATE 325 MG TAB PO SCH (21:47)
[2025-09-24] MEDS: DESMOPRESSIN ACETATE 0.1 MG TAB PO SCH (21:47)
[2025-09-24] MEDS: levETIRAcetam 250 MG TAB PO SCH (21:47)
[2025-09-24] MEDS: CLOPIDOGREL BISULFATE 75 MG TAB PO SCH (21:47)
[2025-09-24] MEDS: HYDROCORTISONE 10 MG TAB PO SCH (21:47)
[2025-09-24] MEDS: LACOSAMIDE 50 MG TABLET PO SCH (21:51)
[2025-09-25] MEDS: LORazepam 0.5 MG TAB PO STA (03:35)
[2025-09-25] MEDS: LEVOTHYROXINE SODIUM 200 MCG TABLET PO SCH (06:15)
[2025-09-25 06:35] LABS: Hematocrit (blood only) 35.3 % (42.0-52.0); Hemoglobin 12.1 g/dl (14.0-18.0); Immature Granulocytes # (auto) 0.02 K/uL (0.01-0.20); Immature Granulocytes % (auto) 0.4 %; Mean Corpuscular Hemoglobin 28.9 pg (25.0-34.0); Mean Corpuscular Volume 84.4 fL (80.0-100.0); Platelet Count 152 K/uL (130-400); RDW Standard Deviation 42.5 fL (36.4-46.3); Red Blood Count 4.18 M/uL (4.70-6.10); White Blood Count 5.61 K/ul (4.8-10.8)
[2025-09-25 06:59] LABS: Anion Gap 6.0 (3-11); Blood Urea Nitrogen 11.0 mg/dl (6-23); Calcium 8.8 mg/dl (8.6-10.3); Carbon Dioxide 26.0 mmol/L (21-32); Chloride 105.0 mmol/L (98-107); Creatinine Clr Calc Pharmacy 63.6 ml/min; Glucose 136.0 mg/dl (70-99(Fasting)); Magnesium 2.0 mg/dl (1.7-2.4); Potassium 4.6 mmol/L (3.5-5.1); Sodium 137.0 mmol/L (136-145)
[2025-09-25 07:21] LABS: Hemoglobin A1C 5.4 % (4.5-5.6)
[2025-09-25] MEDS: DIVALPROEX EXTENDED RELEASE 500 MG TAB PO SCH (09:28)
[2025-09-25] MEDS: ASPIRIN 81 MG ECTAB PO SCH (09:28)
[2025-09-25] MEDS: HYDROCORTISONE 10 MG TAB PO SCH (09:29)
[2025-09-25] MEDS: FINASTERIDE 5 MG TAB PO SCH (09:29)
[2025-09-25] MEDS: VITAMIN B COMPLEX TAB PO SCH (09:30)
[2025-09-25] MEDS: FAMOTIDINE 20 MG TAB PO SCH (09:35)
--- NOTE | 2025-09-25 13:20 | Pharmacy Report ---
Pharmacy Glycemic Short Note 2 - Date of Service September 25, 2025 - Glycemic Short BSG Results (Last 24 hours): 09/24/25 09/24/25 09/24/25 12:55 16:20 20:43 Glucose 92 POC Glucose 95 78 09/25/25 09/25/25 09/25/25 05:27 07:38 11:16 Glucose 136 H POC Glucose 119 H 103 H OUTPATIENT ANTIDIABETIC REGIMEN: * Lantus 12 units HS ASSESSMENT: 09/25 * Anders has received no insulin thus far this admission. BSGs at goal so far today (119, 103 mg/dL) * Will order a Lantus dose per scale for this evening (0-8 units). * Unable to evaluate Novolog parameters given no meal-time insulin has been n eeded 09/24 * Patient admitted with weakness/QUENTIN - pharmacy consulted for glycemic management. BSGs<100 on admission, will hold basal insulin and utilize novolog for now. PLAN FOR INPATIENT GLYCEMIC CONTROL: * Hold outpatient oral diabetes medications * Basal insulin * Lantus 0-8 units SC HS (0 units for BSG less than 140) * Bolus insulin * NovoLog per scale ACHS or Q6hrs while NPO * Goal Range: Low 120 mg/dL - High 160 mg/dL * Correction Factor: 30 mg/dL/unit * Nutritional / Prandial insulin per carb ratio of 1 unit per 10 grams CHO consumed
--- NOTE | 2025-09-25 17:33 | Hospitalist Progress Note ---
"Date of Service September 25, 2025 Assessment & Plan (1) Lethargy: (2) Generalized weakness: (3) Ambulatory dysfunction: (4) QUENTIN (acute kidney injury): (5) Chronic respiratory failure with hypoxia: Plan Waldo is a 55-year-old man with past medical history of psychogenic nonepileptic seizure, bipolar disorder, diabetes insipidus, panhypopituitarism, asthma, demyelinating disease, GERD, ulcerative colitis, depression, anxiety, and medication noncompliance. He presented to the ED at the advice of his outpatient physical therapist due to generalized weakness, fatigue, and ambulatory dysfunction. He was not wearing supplemental O2 on arrival however became hypoxic on room air and was placed on 2 L NC. Patient reports he wears 4 L NC during the daytime and uses CPAP at bedtime. Workup in the ED revealed electrolyte abnormalities, QUENTIN. He was admitted for management of such. #Generalized weakness | Ambulatory dysfunction - Likely multifactorial between electrolyte abnormalities, dehydration, and generalized deconditioning from frequent hospitalizations - PT/OT recommending inpatient rehab - Additional treatment as outlined below #QUENTIN - Suspect secondary to poor oral intake - Baseline Cr 0.7-1.0. Creatinine on admission 2.17, now improved to 1.56 following IV fluids - Continue maintenance IV fluids with LR @125 ml/h - Hold lisinopril - Trend BMP with AM labs #Asthma/COPD | Chronic hypoxemic respiratory failure | CORINA - baseline O2 requirement of 4 L via NC during the daytime and CPAP HS - CXR notes shallow inspiration with interval blunting of the left costophrenic angle - this could represent atelectasis, early pneumonia, or small left pleural effusion - Respiratory BioFire negative - Encourage incentive spirometer Q1HWA - Duonebs available PRN - Continue home inhalers/nebs - CPAP HS - ABG overnight revealed mild respiratory acidosis with pH 7.32 and CO2 48 and minimal compensation with HCO3 25. Consider repeating ABG if patient remains lethargic #Hypomagnesemia - Mag low at 1.4 on admission, repleted with 1 g mag IV x 3, with improvement in mag to 2.0 - Continue home Mag-Ox 400 mg daily #PNES, remote epileptic seizures - Continue oral VPA, Vimpat, levetiracetam #Panhypopituitarism | Diabetes insipidus - [facility] - Continue levothyroxine - Continue desmopressin - Provide stress dose steroids with oral hydrocortisone at double normal dosing - Can resume growth hormone and testosterone treatment outpatient #Diabetes type 2 - No longer on metformin because of recurrent lactic acidosis. Recently hypoglycemias have been more of the issue - Home regimen held while inpatient - Use SSI while admitted - Pharmacy glycemic consult placed given stress dose steroid usage - A1c added to AM labs #Bipolar disorder | PTSD - Sees therapist every other week. Followed by Dr. Woods - Continue usual mental health meds #Atrial fibrillation - S/p watchman 02/15/24 - Continue Plavix, aspirin, propranolol #HTN | HLD - continue beta benjamín, rosuvastatin - Lisinopril on hold with QUENTIN #Chronic back and R foot/ankle pain - Followed with palliative care clinic previously - Continue home Percocet PRN - Uses CAM boot when ambulating. Follows with Dr. Phillips and [facility] VTE PPx: SCDs Dispo: PT/OT recommending inpatient rehab Admission and Anticipated Discharge Date Admission Date: September 24, 2025 Supervising Physician Co-Signing Physician Notes chart reviewed and case d/w S William AVITIA, as above Subjective Patient seen and evaluated at bedside. He remains lethargic today but does arouse to my voice and gentle touch. However he was frequently falling asleep mid conversation with me. He did work with therapy earlier and is recommended to go to rehab. Discussed with his RN who does not voice any complaints or concerns regarding Mr. Leiva at this time. Physical Exam Physical Exam: General: No acute distress, nondiaphoretic, well-developed, well-nourished. Very lethargic. Skin: Warm, dry. No rashes or peripheral edema noted. Cardiac: Regular rate and rhythm without murmurs gallops or rubs. Pulm: Clear to auscultation bilaterally without wheezes, rales or rhonchi. Normal respiratory effort. 99% on 4 L NC. Abdominal: Soft, nontender, nondistended. Bowel sounds present. Neuro: A&O x3. No focal neurological deficits. Results & Data Results & Data Vital Signs (Past 12 Hours) Vital Signs Temp Pulse Resp BP Pulse Ox O2 Del Method O2 Flow Rate 09/25/25 15:33 97.3 F L 67 17 121/77 99 Nasal Cannula 09/25/25 07:55 97.9 F 69 18 99/63 L 97 Nasal Cannula 09/25/25 07:08 64 18 96 Nasal Cannula 4 Laboratory Results Reviewed CBC with differential Reviewed ABG Reviewed BMP, mag PG Care Time/CCT Total # of Minutes Spent Total Time Spent with Patient: Total time spent is greater than 50% in coordination of care (as documented) at patient's floor/unit and/or counseling patient: Coding Level of Care Code 05906 SUB INP/OBS CARE 2/35MIN Diagnoses Lethargy R53.83 Generalized weakness R53.1 Ambulatory dysfunction R26.2 QUENTIN (acute kidney injury) N17.9 Chronic respiratory failure with hypoxia J96.11"
[2025-09-25] MEDS: LANTUS PER UNIT CHARGE SC SCH (21:13)
[2025-09-26 06:10] LABS: Hematocrit (blood only) 28.9 % (42.0-52.0); Hemoglobin 10.3 g/dl (14.0-18.0); Mean Corpuscular Hemoglobin 29.3 pg (25.0-34.0); Mean Corpuscular Volume 82.1 fL (80.0-100.0); Platelet Count 139 K/uL (130-400); RDW Standard Deviation 40.3 fL (36.4-46.3); Red Blood Count 3.52 M/uL (4.70-6.10); White Blood Count 7.44 K/ul (4.8-10.8)
[2025-09-26 06:31] LABS: Anion Gap 6.0 (3-11); Blood Urea Nitrogen 7.0 mg/dl (6-23); Calcium 8.7 mg/dl (8.6-10.3); Carbon Dioxide 28.0 mmol/L (21-32); Chloride 104.0 mmol/L (98-107); Creatinine Clr Calc Pharmacy 100.3 ml/min; Glucose 190.0 mg/dl (70-99(Fasting)); Potassium 3.9 mmol/L (3.5-5.1); Sodium 138.0 mmol/L (136-145)
--- NOTE | 2025-09-26 10:02 | Hospitalist Progress Note ---
"Date of Service September 26, 2025 Assessment & Plan (1) Lethargy: (2) Generalized weakness: (3) Ambulatory dysfunction: (4) QUENTIN (acute kidney injury): (5) Chronic respiratory failure with hypoxia: Plan Waldo is a 55-year-old man with past medical history of psychogenic nonepileptic seizure, bipolar disorder, diabetes insipidus, panhypopituitarism, asthma, demyelinating disease, GERD, ulcerative colitis, depression, anxiety, and medication noncompliance. He presented to the ED at the advice of his outpatient physical therapist due to generalized weakness, fatigue, and ambulatory dysfunction. He was not wearing supplemental O2 on arrival however became hypoxic on room air and was placed on 2 L NC. Patient reports he wears 4 L NC during the daytime and uses CPAP at bedtime. Workup in the ED revealed electrolyte abnormalities, QUENTIN. He was admitted for management of such. #Generalized weakness | Ambulatory dysfunction - Likely multifactorial between electrolyte abnormalities, dehydration, and generalized deconditioning from frequent hospitalizations - PT/OT recommending inpatient rehab - Additional treatment as outlined below #QUENTIN - Now resolved. Suspect this was secondary to poor oral intake - Baseline Cr 0.7-1.0. Creatinine on admission 2.17, now at 0.99 following IV fluids - Now that patient is more awake and having better po intake, can discontinue maintenance IV fluids - Hold lisinopril - labile BP past day, monitor BP throughout day, if persistently elevated, can resume lisinopril - Trend BMP with AM labs #Asthma/COPD | Chronic hypoxemic respiratory failure | [place] - baseline O2 requirement of 4 L via NC during the daytime and CPAP HS - CXR notes shallow inspiration with interval blunting of the left costophrenic angle - this could represent atelectasis, early pneumonia, or small left pleural effusion - Encourage incentive spirometer Q1HWA - Duonebs available PRN - Continue home inhalers/nebs - CPAP HS #Hypomagnesemia - Continue home Mag-Ox 400 mg daily #PNES, remote epileptic seizures - Continue oral VPA, Vimpat, levetiracetam #Panhypopituitarism | Diabetes insipidus - [place] [facility] [place] - Continue levothyroxine - Continue desmopressin - Provide stress dose steroids with oral hydrocortisone at double normal dosing - Can resume growth hormone and testosterone treatment outpatient #Diabetes type 2 - A1c 5.4% in September 2025. No longer on metformin because of recurrent lactic acidosis. Recently hypoglycemias have been more of the issue - Home regimen held while inpatient - Use SSI while admitted - Pharmacy glycemic consult placed given stress dose steroid usage #Bipolar disorder | PTSD - Sees therapist every other week. Followed by Dr. Woods - Continue usual mental health meds #Atrial fibrillation - S/p watchman 02/15/24 - Continue Plavix, aspirin, propranolol #HTN | HLD - continue beta benjamín, rosuvastatin - Lisinopril on hold #Chronic back and R foot/ankle pain - Followed with palliative care clinic previously - Continue home Percocet PRN - Uses CAM boot when ambulating. Follows with Dr. Phillips and [facility] VTE PPx: SCDs Dispo: PT/OT recommending inpatient rehab Discontinued IV fluids Discussed discharge planning with CM Admission and Anticipated Discharge Date Admission Date: September 24, 2025 Supervising Physician Co-Signing Physician Notes chart reviewed and case d/w S William AVITIA, as above Subjective Patient seen and evaluated at bedside. He is much more awake and talkative today. He reports feeling fatigued in general but no acute or specific complaints. We discussed therapy's recommendation of rehab. I told him that I recommend he goes to rehab as well given his functional status is below his baseline. He is agreeable to rehab and provided his CM with his facility preferences. We also discussed the results of his lab work and that his QUENTIN has resolved. No additional complaints or concerns at this time. Physical Exam Physical Exam: General: No acute distress, nondiaphoretic, well-developed, well-nourished. Much more awake and talkative today. Skin: Warm, dry. No rashes or peripheral edema noted. Cardiac: Regular rate and rhythm without murmurs gallops or rubs. Pulm: Clear to auscultation bilaterally without wheezes, rales or rhonchi. Normal respiratory effort. 93% on 3 L NC. Abdominal: Soft, nontender, nondistended. Bowel sounds present. Neuro: A&O x3. No focal neurological deficits. Results & Data Results & Data Vital Signs (Past 12 Hours) Vital Signs Temp Pulse Pulse Resp BP Pulse Ox O2 Del Method 09/26/25 08:04 98.1 F 67 18 150/77 H 98 Nasal Cannula 09/26/25 07:28 68 16 97 Nasal Cannula 09/25/25 23:12 68 17 96 09/25/25 23:03 97.9 F 68 18 131/67 96 Room Air, CPAP O2 Flow Rate 09/26/25 08:04 3 09/26/25 07:28 4 09/25/25 23:12 4 09/25/25 23:03 Laboratory Results Reviewed CBC, BMP PG Care Time/CCT Total # of Minutes Spent Total Time Spent with Patient: Total time spent is greater than 50% in coordination of care (as documented) at patient's floor/unit and/or counseling patient: Coding Level of Care Code 85837 SUB INP/OBS CARE 3/50MIN Diagnoses Lethargy R53.83 Generalized weakness R53.1 Ambulatory dysfunction R26.2 QUENTIN (acute kidney injury) N17.9 Chronic respiratory failure with hypoxia J96.11"
[2025-09-27 06:07] LABS: Hematocrit (blood only) 32.0 % (42.0-52.0); Hemoglobin 11.1 g/dl (14.0-18.0); Mean Corpuscular Hemoglobin 28.8 pg (25.0-34.0); Mean Corpuscular Volume 83.1 fL (80.0-100.0); Platelet Count 162 K/uL (130-400); RDW Standard Deviation 42.0 fL (36.4-46.3); Red Blood Count 3.85 M/uL (4.70-6.10); White Blood Count 8.46 K/ul (4.8-10.8)
[2025-09-27 06:23] LABS: Anion Gap 9.0 (3-11); Blood Urea Nitrogen 8.0 mg/dl (6-23); Calcium 9.1 mg/dl (8.6-10.3); Carbon Dioxide 26.0 mmol/L (21-32); Chloride 108.0 mmol/L (98-107); Creatinine Clr Calc Pharmacy 110.3 ml/min; Glucose 121.0 mg/dl (70-99(Fasting)); Potassium 3.8 mmol/L (3.5-5.1); Sodium 143.0 mmol/L (136-145)
--- NOTE | 2025-09-27 12:27 | Hospitalist Progress Note ---
Date of Service September 27, 2025 Assessment & Plan (1) Lethargy: (2) Generalized weakness: (3) Ambulatory dysfunction: (4) QUENTIN (acute kidney injury): (5) Chronic respiratory failure with hypoxia: Plan Waldo is a 55-year-old man with past medical history of psychogenic nonepileptic seizure, bipolar disorder, diabetes insipidus, panhypopituitarism, asthma, demyelinating disease, GERD, ulcerative colitis, depression, anxiety, and medication noncompliance. He presented to the ED at the advice of his outpatient physical therapist due to generalized weakness, fatigue, and ambulatory dysfunction. He was not wearing supplemental O2 on arrival however became hypoxic on room air and was placed on 2 L NC. Patient reports he wears 4 L NC during the daytime and uses CPAP at bedtime. Workup in the ED revealed electrolyte abnormalities, QUENTIN. He was admitted for management of such. #Generalized weakness | Ambulatory dysfunction - Likely multifactorial between electrolyte abnormalities, dehydration, and generalized deconditioning from frequent hospitalizations - PT/OT recommending inpatient rehab #QUENTIN - Now resolved. Suspect this was secondary to poor oral intake - Baseline Cr 0.7-1.0. Creatinine on admission 2.17, now back to his baseline following IV fluids - Now that patient is more awake and having better po intake, maintenance IV fluids have been discontinued. Encourage oral hydration #Asthma/COPD | Chronic hypoxemic respiratory failure | [place] - baseline O2 requirement of 4 L via NC during the daytime and CPAP HS - CXR notes shallow inspiration with interval blunting of the left costophrenic angle - this could represent atelectasis, early pneumonia, or small left pleural effusion - Encourage incentive spirometer Q1HWA - Duonebs available PRN - Continue home inhalers/nebs - CPAP HS #Hypomagnesemia - Continue home Mag-Ox 400 mg daily #PNES, remote epileptic seizures - Continue oral VPA, Vimpat, levetiracetam #Panhypopituitarism | Diabetes insipidus - followed [place] [facility] [place] - Continue levothyroxine - Continue desmopressin - Provide stress dose steroids with oral hydrocortisone at double normal dosing - Can resume growth hormone and testosterone treatment outpatient #Diabetes type 2 - A1c 5.4% in September 2025. No longer on metformin because of recurrent lactic acidosis. Recently hypoglycemias have been more of the issue - Home regimen held while inpatient - Use SSI while admitted - Pharmacy glycemic consult placed given stress dose steroid usage #Bipolar disorder | PTSD - Sees therapist every other week. Followed by Dr. Woods - Continue usual mental health meds #Atrial fibrillation - S/p watchman 02/15/24 - Continue Plavix, aspirin, propranolol #HTN | HLD - continue beta benjamín, rosuvastatin - Lisinopril now resumed #Chronic back and R foot/ankle pain - Followed with palliative care clinic previously - Continue home Percocet PRN - Uses CAM boot when ambulating. Follows with Dr. Phillips and [facility] VTE PPx: SCDs Dispo: Medically stable. Awaiting rehab placement. Resumed lisinopril Admission and Anticipated Discharge Date Admission Date: September 24, 2025 Subjective Patient seen and evaluated at bedside. He reports feeling "weak and wobbly." He also reports intermittent confusion noting that sometimes he cannot remember why he is in the hospital. At this time, he is fully alert and oriented. Continuing to wait for rehab placement. Patient denies any additional complaints or concerns at this time. Informed by RN in the afternoon that patient wants to go home. He made comments to her that he was not going to be approved for rehab. RN reminded him that he has referrals pending at multiple rehab facilities. Physical Exam Physical Exam: General: No acute distress, nondiaphoretic, well-developed, well-nourished. Skin: Warm, dry. No rashes or peripheral edema noted. Cardiac: Regular rate and rhythm without murmurs gallops or rubs. Pulm: Clear to auscultation bilaterally without wheezes, rales or rhonchi. Normal respiratory effort. 99% on 3 L NC. Abdominal: Soft, nontender, nondistended. Bowel sounds present. Neuro: A&O x3. No focal neurological deficits. Results & Data Results & Data Vital Signs (Past 12 Hours) Vital Signs Temp Pulse Resp BP Pulse Ox O2 Del Method O2 Flow Rate 09/27/25 10:04 68 16 162/83 H 99 Nasal Cannula 3 09/27/25 08:28 73 16 167/88 H 98 Nasal Cannula 3 09/27/25 07:54 97.9 F 56 L 16 169/91 H 97 Nasal Cannula 2 09/27/25 07:30 Nasal Cannula 3 09/27/25 07:07 53 L 18 98 Nasal Cannula 2 Laboratory Results Reviewed CBC Reviewed BMP PG Care Time/CCT Total # of Minutes Spent Total Time Spent with Patient: Total time spent is greater than 50% in coordination of care (as documented) at patient's floor/unit and/or counseling patient: Coding Level of Care Code 16606 SUB INP/OBS CARE 3/50MIN Diagnoses Lethargy R53.83 Generalized weakness R53.1 Ambulatory dysfunction R26.2 QUENTIN (acute kidney injury) N17.9 Chronic respiratory failure with hypoxia J96.11
--- NOTE | 2025-09-27 13:03 | Pharmacy Report ---
Pharmacy Glycemic Short Note 2 - Date of Service September 27, 2025 - Glycemic Short BSG Results (Last 24 hours): 09/26/25 09/26/25 09/27/25 16:13 20:23 05:20 Glucose 121 H POC Glucose 158 H 215 H 09/27/25 09/27/25 07:43 11:01 Glucose POC Glucose 112 H 118 H OUTPATIENT ANTIDIABETIC REGIMEN: * Lantus 12 units HS ASSESSMENT: 09/27/25: * Blood sugars remain reasonably well-controlled w/ one episode of hyperglycemia (215 mg/dL ) last evening * Received 21 units of insulin (8 units of basal and 13 units of prandial/correctional bolus) * Hydrocortisone 40 mg PO qAM, 20 mg PO qPM 09/25 * Anders has received no insulin thus far this admission. BSGs at goal so far today (119, 103 mg/dL) * Will order a Lantus dose per scale for this evening (0-8 units). * Unable to evaluate Novolog parameters given no meal-time insulin has been needed 09/24 * Patient admitted with weakness/QUENTIN - pharmacy consulted for glycemic management. BSGs<100 on admission, will hold basal insulin and utilize novolog for now. PLAN FOR INPATIENT GLYCEMIC CONTROL: * Basal insulin * Lantus 0-4-8 units SC HS (see EHR for details) * Bolus insulin * NovoLog per scale ACHS or Q6hrs while NPO * Goal Range: Low 120 mg/dL - High 160 mg/dL * Correction Factor: 30 mg/dL/unit * Nutritional / Prandial insulin per carb ratio of 1 unit per 10 grams CHO consumed
[2025-09-28 06:16] LABS: Anion Gap 10.0 (3-11); Blood Urea Nitrogen 14.0 mg/dl (6-23); Calcium 8.8 mg/dl (8.6-10.3); Carbon Dioxide 25.0 mmol/L (21-32); Chloride 105.0 mmol/L (98-107); Creatinine Clr Calc Pharmacy 107.9 ml/min; Glucose 164.0 mg/dl (70-99(Fasting)); Potassium 3.4 mmol/L (3.5-5.1); Sodium 140.0 mmol/L (136-145)
[2025-09-28] MEDS: POTASSIUM CHLORIDE CRTAB 20 MEQ TABCR PO STA (09:32)
[2025-09-28] MEDS: ACETAMINOPHEN 325 MG TAB PO PRN (11:32)
--- NOTE | 2025-09-28 15:57 | Hospitalist Progress Note ---
"Date of Service September 28, 2025 Assessment & Plan (1) Lethargy: (2) Generalized weakness: (3) Ambulatory dysfunction: (4) QUENTIN (acute kidney injury): (5) Chronic respiratory failure with hypoxia: Plan Waldo is a 55-year-old man with past medical history of psychogenic nonepileptic seizure, bipolar disorder, diabetes insipidus, panhypopituitarism, asthma, demyelinating disease, GERD, ulcerative colitis, depression, anxiety, and medication noncompliance. He presented to the ED at the advice of his outpatient physical therapist due to generalized weakness, fatigue, and ambulatory dysfunction. He was not wearing supplemental O2 on arrival however became hypoxic on room air and was placed on 2 L NC. Patient reports he wears 4 L NC during the daytime and uses CPAP at bedtime. Workup in the ED revealed electrolyte abnormalities, QUENTIN. He was admitted for management of such. #Generalized weakness | Ambulatory dysfunction - Likely multifactorial between electrolyte abnormalities, dehydration, and generalized deconditioning from frequent hospitalizations - PT/OT recommending inpatient rehab #QUENTIN - Now resolved. Suspect this was secondary to poor oral intake - Baseline Cr 0.7-1.0. Creatinine on admission 2.17, now back to his baseline following IV fluids - Now that patient is more awake and having better po intake, maintenance IV fluids have been discontinued. Encourage oral hydration #Asthma/COPD | Chronic hypoxemic respiratory failure | [place] - baseline O2 requirement of 4 L via NC during the daytime and CPAP HS - CXR notes shallow inspiration with interval blunting of the left costophrenic angle - this could represent atelectasis, early pneumonia, or small left pleural effusion - Encourage incentive spirometer Q1HWA - Duonebs available PRN - Continue home inhalers/nebs - CPAP HS #Hypomagnesemia | Acute hypokalemia - Continue home Mag-Ox 400 mg daily - Mild hypokalemia with K 3.4 - repleted with 20 mEq KCl p.o. x1. Trend with AM labs #PNES, remote epileptic seizures - Continue oral VPA, Vimpat, levetiracetam #Panhypopituitarism | Diabetes insipidus - [place] [facility] - Continue levothyroxine - Continue desmopressin - Provide stress dose steroids with oral hydrocortisone at double normal dosing - Can resume growth hormone and testosterone treatment outpatient #Diabetes type 2 - A1c 5.4% in September 2025. No longer on metformin because of recurrent lactic acidosis. Recently hypoglycemias have been more of the issue - Home regimen held while inpatient - Use SSI while admitted - Pharmacy glycemic consult placed given stress dose steroid usage #Bipolar disorder | PTSD - Sees therapist every other week. Followed by Dr. Woods - Continue usual mental health meds #Atrial fibrillation - S/p watchman 02/15/24 - Continue Plavix, aspirin, propranolol #HTN | HLD - continue beta benjamín, rosuvastatin - Lisinopril now resumed #Chronic back and R foot/ankle pain - Followed with palliative care clinic previously - Continue home Percocet PRN - Uses CAM boot when ambulating. Follows with Dr. Phillips and [facility] VTE PPx: SCDs Dispo: Medically stable. Awaiting rehab placement. Repleted potassium Ordered melatonin Admission and Anticipated Discharge Date Admission Date: September 24, 2025 Subjective Patient seen and evaluated at bedside. He reports having a headache this morning. He had a dose of Tylenol which somewhat improved his headache. He denies wanting any additional medications for his headache when offered. He reports he has had very poor sleep the past 2 nights in the hospital. He usually takes 5 mg of melatonin at home for sleep. We discussed trying melatonin tonight and hopefully he will have better sleep. He continues to feel weak. RN reports he typically refuses to get out of bed. Continuing to wait for rehab placement. Physical Exam Physical Exam: General: No acute distress, nondiaphoretic, well-developed, well-nourished. Skin: Warm, dry. No rashes or peripheral edema noted. Cardiac: Regular rate and rhythm without murmurs gallops or rubs. Pulm: Clear to auscultation bilaterally without wheezes, rales or rhonchi. Normal respiratory effort. 96% on 1 L NC. Abdominal: Soft, nontender, nondistended. Bowel sounds present. Neuro: A&O x3. No focal neurological deficits. Results & Data Results & Data Vital Signs (Past 12 Hours) Vital Signs Temp Pulse Resp BP Pulse Ox O2 Del Method O2 Flow Rate 09/28/25 14:23 97.7 F 56 L 16 167/80 H 96 Nasal Cannula 1 09/28/25 10:10 55 L 16 99 Nasal Cannula 2 09/28/25 08:46 58 L 16 163/81 H 97 Room Air 2 09/28/25 07:40 Nasal Cannula 2 09/28/25 07:18 98.1 F 51 L 16 159/78 H 98 Nasal Cannula 2 Laboratory Results Reviewed BMP PG Care Time/CCT Total # of Minutes Spent Total Time Spent with Patient: Total time spent is greater than 50% in coordination of care (as documented) at patient's floor/unit and/or counseling patient: Coding Level of Care Code 52686 SUB INP/OBS CARE 3/50MIN Diagnoses Lethargy R53.83 Generalized weakness R53.1 Ambulatory dysfunction R26.2 QUENTIN (acute kidney injury) N17.9 Chronic respiratory failure with hypoxia J96.11"
[2025-09-28] MEDS: MELATONIN 3 MG TAB PO SCH (23:31)
[2025-09-29] MEDS: IBUPROFEN 600 MG TAB PO STA (00:01)
[2025-09-29] MEDS: FAMOTIDINE 40 MG TABLET PO ONE (00:09)
[2025-09-29 06:01] LABS: Anion Gap 8.0 (3-11); Calcium 8.9 mg/dl (8.6-10.3); Carbon Dioxide 26.0 mmol/L (21-32); Chloride 110.0 mmol/L (98-107); Potassium 3.5 mmol/L (3.5-5.1); Sodium 144.0 mmol/L (136-145)
[2025-09-29 06:07] LABS: Blood Urea Nitrogen 18.0 mg/dl (6-23); Creatinine Clr Calc Pharmacy 96.4 ml/min; Glucose 108.0 mg/dl (70-99(Fasting))
--- NOTE | 2025-09-29 12:33 | Hospitalist Progress Note ---
Date of Service September 29, 2025 Assessment & Plan (1) Lethargy: (2) Generalized weakness: (3) Ambulatory dysfunction: (4) QUENTIN (acute kidney injury): (5) Chronic respiratory failure with hypoxia: Plan Waldo is a 55-year-old man with past medical history of psychogenic nonepileptic seizure, bipolar disorder, diabetes insipidus, panhypopituitarism, asthma, demyelinating disease, GERD, ulcerative colitis, depression, anxiety, and medication noncompliance. He presented to the ED at the advice of his outpatient physical therapist due to generalized weakness, fatigue, and ambulatory dysfunction. He was not wearing supplemental O2 on arrival however became hypoxic on room air and was placed on 2 L NC. Patient reports he wears 4 L NC during the daytime and uses CPAP at bedtime. Workup in the ED revealed electrolyte abnormalities, QUENTIN. He was admitted for management of such. #Generalized weakness | Ambulatory dysfunction - Likely multifactorial between electrolyte abnormalities, dehydration, and generalized deconditioning from frequent hospitalizations - PT/OT recommending inpatient rehab #QUENTIN - Now resolved. Suspect this was secondary to poor oral intake - Baseline Cr 0.7-1.0. Creatinine on admission 2.17, now back to his baseline following IV fluids - Now that patient is more awake and having better po intake, maintenance IV fluids have been discontinued. Encourage oral hydration #Asthma/COPD | Chronic hypoxemic respiratory failure | CORINA - baseline O2 requirement of 4 L via NC during the daytime and CPAP HS - CXR notes shallow inspiration with interval blunting of the left costophrenic angle - this could represent atelectasis, early pneumonia, or small left pleural effusion - Encourage incentive spirometer Q1HWA - Duonebs available PRN - Continue home inhalers/nebs - CPAP HS #Hypomagnesemia | Acute hypokalemia - Continue home Mag-Ox 400 mg daily - Mild hypokalemia resolved after oral repletion #PNES, remote epileptic seizures - Continue oral VPA, Vimpat, levetiracetam #Panhypopituitarism | Diabetes insipidus - followed by [facility] [place] - Continue levothyroxine - Continue desmopressin - Provide stress dose steroids with oral hydrocortisone at double normal dosing - Can resume growth hormone and testosterone treatment outpatient #Diabetes type 2 - A1c 5.4% in September 2025. No longer on metformin because of recurrent lactic acidosis. Recently hypoglycemias have been more of the issue - Home regimen held while inpatient - Use SSI while admitted - Pharmacy glycemic consult placed given stress dose steroid usage #Bipolar disorder | PTSD - Sees therapist every other week. Followed by Dr. Woods - Continue usual mental health meds #Atrial fibrillation - S/p watchman 02/15/24 - Continue Plavix, aspirin, propranolol #HTN | HLD - continue beta benjamín, rosuvastatin, lisinopril - IV Hydralazine available PRN with parameters #Chronic back and R foot/ankle pain - Followed with palliative care clinic previously - Continue home Percocet PRN - Uses CAM boot when ambulating. Follows with Dr. Phillips and [facility]TE PPx: SCDs Dispo: Medically stable. Awaiting rehab placement. Ordered IV Hydralazine PRN Admission and Anticipated Discharge Date Admission Date: September 24, 2025 Subjective Patient seen and evaluated at bedside. He reports feeling better today. He notes his headache has resolved. He slept "off and on" overnight. He refused his melatonin last night and reports "I must've been confused, I'm not sure why I didn't want it last night." He reports he had a BM today. He denies any additional complaints or concerns at this time. His RN informed me that overnight he complained of chest pain, shortness of breath, headache, and his BP was elevated. His EKG did not show signs of acute ischemia. Overnight resident evaluated him at that time and ordered ibuprofen for his headache. When dayshift RN followed up on these complaints this morning, he denied any CP, SOB, or WRIGHT. His BP was still elevated this morning, but it has not been re-checked since his morning dose of lisinopril was given. Physical Exam Physical Exam: General: No acute distress, nondiaphoretic, well-developed, well-nourished. Skin: Warm, dry. No rashes or peripheral edema noted. Cardiac: Regular rate and rhythm without murmurs gallops or rubs. Pulm: Clear to auscultation bilaterally without wheezes, rales or rhonchi. Normal respiratory effort. 100% on 1 L NC. Abdominal: Soft, nontender, nondistended. Bowel sounds present. Neuro: A&O x3. No focal neurological deficits. Results & Data Results & Data Vital Signs (Past 12 Hours) Vital Signs Temp Pulse Pulse Resp BP BP Pulse Ox 09/29/25 09:35 09/29/25 09:26 98.2 F 50 L 16 166/81 H 100 09/29/25 07:43 97.7 F 45 L 16 175/90 H 99 09/29/25 07:10 64 16 95 09/29/25 01:24 60 162/78 H O2 Del Method O2 Flow Rate 09/29/25 09:35 Nasal Cannula 1 09/29/25 09:26 Nasal Cannula 1 09/29/25 07:43 Nebulizer 09/29/25 07:10 Nasal Cannula 1 09/29/25 01:24 Laboratory Results Reviewed BMP PG Care Time/CCT Total # of Minutes Spent Total Time Spent with Patient: Total time spent is greater than 50% in coordination of care (as documented) at patient's floor/unit and/or counseling patient: Coding Level of Care Code 45465 SUB INP/OBS CARE 3/50MIN Diagnoses Lethargy R53.83 Generalized weakness R53.1 Ambulatory dysfunction R26.2 QUENTIN (acute kidney injury) N17.9 Chronic respiratory failure with hypoxia J96.11
[2025-09-29 22:30] VITALS: BP 146/74; TEMP 97.9
[2025-09-30 06:58] LABS: Anion Gap 6.0 (3-11); Blood Urea Nitrogen 17.0 mg/dl (6-23); Calcium 8.7 mg/dl (8.6-10.3); Carbon Dioxide 29.0 mmol/L (21-32); Chloride 105.0 mmol/L (98-107); Creatinine Clr Calc Pharmacy 112.8 ml/min; Glucose 131.0 mg/dl (70-99(Fasting)); Potassium 3.2 mmol/L (3.5-5.1); Sodium 140.0 mmol/L (136-145)
[2025-09-30 07:10] VITALS: PULSE 53; RESP 16; O2SAT 98
[2025-09-30] MEDS ORDERED: POTASSIUM CHLORIDE CRTAB 20 MEQ TABCR PO STA (08:15)
--- NOTE | 2025-09-30 09:24 | Discharge Summary ---
Discharge Summary Date of Service September 30, 2025 Principal Dx & Hospital Course #1 = Principal Diagnosis (1) Lethargy: (2) Generalized weakness: (3) Ambulatory dysfunction: (4) QUENTIN (acute kidney injury): (5) Chronic respiratory failure with hypoxia: Francois Haas is a 55-year-old man with past medical history of psychogenic nonepileptic seizure, bipolar disorder, diabetes insipidus, panhypopituitarism, asthma, demyelinating disease, GERD, ulcerative colitis, depression, anxiety, and medication noncompliance. He presented to the ED at the advice of his outpatient physical therapist due to generalized weakness, fatigue, and ambulatory dysfunction. He was not wearing supplemental O2 on arrival however became hypoxic on room air and was placed on 2 L NC. Patient reports he wears 4 L NC during the daytime and uses CPAP at bedtime. Workup in the ED revealed electrolyte abnormalities, QUENTIN. He was admitted for management of such. #Generalized weakness | Ambulatory dysfunction Likely multifactorial between electrolyte abnormalities, dehydration, and generalized deconditioning from frequent hospitalizations PT/OT recommending inpatient rehab --> to go to [facility] on discharge. #QUENTIN Now resolved. Suspect this was secondary to poor oral intake Baseline Cr 0.7-1.0. Creatinine on admission 2.17, now back to his baseline following IV fluids Encourage oral hydration #Asthma/COPD | Chronic hypoxemic respiratory failure | CORINA baseline O2 requirement of 4 L via NC during the daytime and CPAP HS CXR notes shallow inspiration with interval blunting of the left costophrenic angle - this could represent atelectasis, early pneumonia, or small left pleural effusion Continue home inhalers/nebs CPAP HS #Hypomagnesemia | Acute hypokalemia Continue home Mag-Ox 400 mg daily Mild hypokalemia resolved after oral repletion #PNES, remote epileptic seizures - Continue oral VPA, Vimpat, levetiracetam #Panhypopituitarism | Diabetes insipidus followed by [facility] Continue levothyroxine & desmopressin s/p stress dosing while inpatient. Can resume growth hormone and testosterone treatment outpatient #Diabetes type 2 A1c 5.4% in September 2025. No longer on metformin because of recurrent lactic acidosis. Recently hypoglycemias have been more of the issue Can resume home regimen on discharge. #Bipolar disorder | PTSD Sees therapist every other week. Followed by Dr. Woods Continue usual mental health meds Psych eval patient 09/30 prior to dc --> if anxiety persists @ [facility] consider restarting Clonidine patch 0.1mg q7 days if HR/BP can tolerate it VS Buspar 5mg TID PO #Atrial fibrillation S/p watchman 02/15/24 Continue Plavix, aspirin, propranolol #HTN | HLD - continue beta benjamín, rosuvastatin, lisinopril #Chronic back and R foot/ankle pain Followed with palliative care clinic previously Continue home Percocet PRN Uses CAM boot when ambulating. Follows with Dr. Phillips and [facility] Discharged to [facility] 09/30. Notes For Next Care Provider may need adjustments in anxiety medications as above. Admission HPI Per Admitting Provider Waldo is a 55-year-old man with past medical history of psychogenic nonepileptic seizure, bipolar disorder, diabetes insipidus, panhypopituitarism, asthma, demyelinating disease, GERD, ulcerative colitis, depression, anxiety, and medication noncompliance he presented from home at the advice of his outpatient physical therapist with generalized weakness and fatigue. At the time of my exam, the patient was lying in bed sleeping soundly. He initially did not arouse to my voice or gentle touch but did arouse once sternal rub was performed. History is limited due to his lethargy. He reports "feeling blah" x 1 week. He reports his weakness has progressively worsened over this week. He has also had a reduced appetite and oral intake. He denies any specific symptoms including headache, sinus congestion, cough, sore throat, shortness of breath, chest pain, N/V/D, abdominal pain, urinary symptoms. He reports his main complaints at this time are feeling extremely weak and fatigued. He failed his ambulatory trial in the ED. Patient initially reports stopping his medications 1 week ago. He then clarifies that he stopped his medications for 1 week prior to his last hospitalization, but has been consistently taking them since his most recent hospital discharge. He reports taking his regular morning medications today. During his last hospitalization, he was started on a clonidine patch weekly and risperidone 2 mg daily, and he was discontinued on Remeron, quetiapine, venlafaxine, prazosin. He reports using supplemental O2 at baseline and reports wearing 4 L O2 via NC during the daytime and using a CPAP at bedtime. Vitals on admission are stable. Labs on admission are significant for anemia with Hgb 13.1 which is improved from prior, mild respiratory acidosis, QUENTIN with creatinine 2.17, hypomagnesemia with mag 1.4, TSH low at 0.092 with normal free T4. No leukocytosis. Platelets WNL. Sodium and potassium WNL. Liver enzymes WNL. Respiratory BioFire negative. CXR on admission reveals shallow inspiration with interval blunting of the left costophrenic anglethis could represent atelectasis, early pneumonia, or small left pleural effusion. Head CT reveals no hemorrhage, mass effect, or evidence of acute territorial ischemia. We discussed code status, patient wishes to be a full code. Discharge Exam General: NAD, VS: BP 146/74; P53; R16; T36.6C Resp: normal respiratory effort Extremities: Moves all extremities, no edema Neuro: A&O x3 Skin: intact, no lesions noted Discharge Plan Discharge Items Patient Disposition: Transfer Inpatient Rehab Fac Reason For Visit: WEAKNESS, QUENTIN, HYPOG, HYPOXIA Discharge Diagnosis: Weakness, QUENTIN Condition on Discharge: Fair Activity: Resume your previous activity Non-emergency contact: Primary Care Provider Call non-emergency contact if: you have any medication questions and your symptoms worsen Follow-up/Referrals: Pro,Larry Crisostomo MD [Primary Care Provider] - Diet: Carb Consistent or DM2 Addtl Attending Provider Instructions: Mr. Leiva, You were recently hospitalized secondary to weakness. You were found to have abnormalities of your electrolytes and kidney function that have been corrected. You are going to rehab to get stronger prior to returning home. Medications: Your medication list has been reviewed and reconciled upon discharge to ensure accuracy and continuity of care. An updated list of all your medications is included with your hospital discharge paperwork. Please review this list closely, and make note of any changes. No new medications have been prescribed to you on discharge. Take your medications as instructed; do not skip a dose of your medicines. Make sure all of your doctors know every medicine you are taking (including dwkg-erb-hatjdhy medicines, vitamins, and supplements). Call your primary care provider before taking any new medicines (including over- the-counter medicines, vitamins, and supplements), because some of these may interact with your current medications, or may make your symptoms worse. Tell your primary care provider if you cannot afford your medications. Activity: You can do normal everyday activities as your body allows. Take rest breaks if you feel tired. Do not overexert. Stop activity if you have pain, shortness of breath or feel dizzy. Follow-up appointments: Make an appointment with your primary care physician within one week of discharge. A copy of this summary will be sent to them. Every time you see your primary care physician, or any other doctor, bring your medication list, and a list of questions. CONTACT YOUR PRIMARY CARE PROVIDER if you experience any of the following: Shortness of breath or difficulty breathing Fevers or chills Feeling tired with normal activity or experiencing dizziness or fainting Difficulty following your treatment plan, or difficulty taking medications CALL 911 OR GO TO THE EMERGENCY DEPARTMENT if you experience any of the following: Severe abdominal pain or nausea/vomiting Severe chest pain, or chest pain that radiates (moves) to your jaw or arm Sudden, severe shortness of breath or difficulty breathing Thank you for allowing us to participate in your care. Pending Studies at Discharge: No Stand-Alone Forms: My [facility] Skilled Items Patient informed of condition?: Yes DNR: No Discharge Level of Care: Acute rehab Communicable Disease: No Discharge Prognosis: Stable Lines: None Urinary Catheter: No Medications and DC Order Prescriptions: Continued fluticasone propionate [Flonase Allergy Relief] 50 mcg/actuation spr ay,suspension 1 spray intranasal HS PRN (Reason: allergy symptoms) Qty: 16 0RF Rx Instructions: administer into each nostril cholecalciferol (vitamin D3) 50 mcg (2,000 unit) capsule 50 mcg PO QPM Qty: 90 1RF desmopressin 0.2 mg tablet 0.4 mg PO BID Qty: 120 5RF dutasteride 0.5 mg capsule 0.5 mg PO QAM Qty: 90 2RF propranolol 120 mg capsule,extended release 24hr 120 mg PO HS Qty: 90 3RF docusate sodium 100 mg capsule 100 mg PO BID 30 Days Qty: 60 1RF Patient Comments: 09/14- otc unable to verify ascorbic acid (vitamin C) 250 mg tablet 250 mg PO BID Qty: 60 2RF oxycodone-acetaminophen [Percocet] 5-325 mg tablet 1 tab PO Q6H PRN (Reason: very severe pain only) 30 Days Qty: 120 0RF ondansetron 8 mg tablet,disintegrating 8 mg PO Q8H PRN (Reason: nausea and vomiting) Qty: 90 1RF ipratropium-albuterol 0.5 mg-3 mg(2.5 mg base)/3 mL solution for nebulization 3 ml inhalation QID PRN (Reason: wheezing) Qty: 90 0RF albuterol sulfate [Ventolin HFA] 90 mcg/actuation HFA aerosol inhaler 2 inh inhalation Q6H PRN (Reason: shortness of breath or wheezing) Qty: 6.7 2RF arformoterol [Brovana] 15 mcg/2 mL solution for nebulization 2 ml inhalation BID Qty: 120 7RF budesonide 0.5 mg/2 mL suspension for nebulization 0.5 mg inhalation BID Qty: 60 7RF hydrocortisone 10 mg tablet 10 mg PO QPM Rx Instructions: 2 tabs (20mg) in AM, 1 tab (10mg) in PM double dose in times of stress magnesium oxide 400 mg (241.3 mg magnesium) tablet 400 mg PO HS Hold Instructions: hold until diarrhea resolved - magnesium supplement can cause diarrhea sodium chloride 7 % solution for nebulization 1 inh inhalation BID Qty: 240 3RF acetylcysteine 200 mg/mL (20 %) solution 2 ml inhalation BID PRN (Reason: Chest congestion) Qty: 100 6RF Baqsimi 3 mg/actuation spray,non-aerosol 3 mg intranasal DIRECTED PRN (Reason: Severe Hypoglycemia) Rx Instructions: for treatment of severe hypoglycemia, second dose may be given if patient does not respond after 15 minutes . Per caregiver, pt has never has to use this medication. vitamin B complex [Vitamins B Complex] Capsule 1 cap PO QAM Qty: 30 0RF Norditropin FlexPro 5 mg/1.5 mL (3.3 mg/mL) pen injector 3 mg SQ QPM divalproex 500 mg tablet extended release 24 hr 1,000 mg PO QAM naloxone [Narcan] 4 mg/actuation spray,non-aerosol 1 spray intranasal ONCE PRN (Reason: opioid overdose) Qty: 2 2RF hydrocortisone 10 mg tablet 20 mg PO QAM Rx Instructions: 2 tabs (20mg) in AM, 1 tab (10mg) in PM double dose in times of stress clopidogrel 75 mg tablet 75 mg PO QPM famotidine 20 mg tablet 20 mg PO QAM lisinopril 10 mg tablet 20 mg PO QPM levothyroxine 200 mcg tablet 200 mcg PO QAM ramelteon 8 mg tablet 8 mg PO QPM levetiracetam 1,000 mg tablet 250 mg PO BID lacosamide 150 mg tablet 150 mg PO BID ferrous sulfate 325 mg (65 mg iron) tablet 325 mg PO BID Rx Instructions: you can take this every other day - it works just as well and causes fewer bowel problems insulin glargine [Lantus Solostar U-100 Insulin] 100 unit/mL (3 mL) insulin pen 12 unit SUBCUT HS Rx Instructions: Per Dr. Linares last pt last spoke w. him. clonidine 0.1 mg/24 hr Patch Weekly 1 patch transdermal Q7D 28 Days Qty: 4 0RF risperidone 2 mg Tablet 2 mg PO QAM 30 Days Qty: 30 0RF No Action (DME) OneTouch Verio test strips Strip See Rx Instructions .MEDSUPPLY Qty: 150 5RF Rx Instructions: check blood sugars 4 times a day (DME) blood-glucose meter [OneTouch Verio Reflect Meter] Mis See Rx Instructions miscellaneous .MEDSUPPLY Qty: 1 0RF Rx Instructions: As directed (DME) lancets [OneTouch Delica Plus Lancet] 33 gauge mis See Rx Instructions .MEDSUPPLY Qty: 150 5RF Rx Instructions: As directed check blood sugars 4 times a day (DME) Oxygen Home Liters Per Minute See Rx Instructions .Route Rx Instructions: 4 L o2 via NC As directed, (DME) FreeStyle Rosalie 2 Sensor Kit See Rx Instructions .Route Qty: 6 3RF Rx Instructions: Change every 14 days (DME) FreeStyle Rosalie 2 Plus Sensor Device See Rx Instructions .Route Qty: 6 3RF Rx Instructions: change every 15 days (DME) FreeStyle Rosalie 2 [place] Misc See Rx Instructions .Route Qty: 1 0RF Rx Instructions: Check blood glucose before each meal (DME) nebulizers [Compact Compressor Nebulizer] Misc See Rx Instructions .Route Qty: 1 0RF Rx Instructions: One compact compressor nebulizer. Use as directed. Please include tubing, mouth piece and cup. Discharge Orders: Discharge Order (Routine); Ordered 09/30/25 Ordered By: Jade Reece Admission Data Admit Date/Time: 09/24/25 14:47 Attending Provider: Deshaun Pacheco Admit Provider: James Esqueda Primary Care Provider: Larry Amaral Other Providers: James Esqueda; [place]; [facility]; [facility]; Wendy Trinh; Keon Garcia; Damaris Galeano; Mary Gar; Bijan Valiente; Rodrigue Mathew; Ashley Hedrick; Sun Arguelles Other Interventions: Discharge Summary Assessment (RN) Last Done: 09/30/25 16:20 Hospital Stay Data Consultations 09/24/25 16:54 ED Decision to Admit Stat 09/29/25 19:35 Consult Psychiatry Routine Diagnostic Imagining Performed 09/24/25 11:33 CT head/brain wo con Stat Pending Results Patient Have Any Pending Studies at Discharge: No Discharge Instructions Given to Patient (Per Discharging Provider) Mr. Leiva, You were recently hospitalized secondary to weakness. You were found to have abnormalities of your electrolytes and kidney function that have been corrected. You are going to rehab to get stronger prior to returning home. Medications: Your medication list has been reviewed and reconciled upon discharge to ensure accuracy and continuity of care. An updated list of all your medications is included with your hospital discharge paperwork. Please review this list closely, and make note of any changes. No new medications have been prescribed to you on discharge. Take your medications as instructed; do not skip a dose of your medicines. Make sure all of your doctors know every medicine you are taking (including vgyz-wew-swnxkce medicines, vitamins, and supplements). Call your primary care provider before taking any new medicines (including over- the-counter medicines, vitamins, and supplements), because some of these may interact with your current medications, or may make your symptoms worse. Tell your primary care provider if you cannot afford your medications. Activity: You can do normal everyday activities as your body allows. Take rest breaks if you feel tired. Do not overexert. Stop activity if you have pain, shortness of breath or feel dizzy. Follow-up appointments: Make an appointment with your primary care physician within one week of discharge. A copy of this summary will be sent to them. Every time you see your primary care physician, or any other doctor, bring your medication list, and a list of questions. CONTACT YOUR PRIMARY CARE PROVIDER if you experience any of the following: Shortness of breath or difficulty breathing Fevers or chills Feeling tired with normal activity or experiencing dizziness or fainting Difficulty following your treatment plan, or difficulty taking medications CALL 911 OR GO TO THE EMERGENCY DEPARTMENT if you experience any of the following: Severe abdominal pain or nausea/vomiting Severe chest pain, or chest pain that radiates (moves) to your jaw or arm Sudden, severe shortness of breath or difficulty breathing Thank you for allowing us to participate in your care. Supervising Physician Co-Signing Physician Notes The patient was not seen by me. The chart was reviewed. Case discussed with SEPIDEH Ybarra. Agree with assessment and plan Total Time Total Time Spent Total Time Spent (In Minutes): 50 Total Time Includes: Examination of the Patient, Discharge Planning and Medication Reconciliation Coding Level of Care Code 34679 INP/OBS DISCH >30 MIN Diagnoses Lethargy R53.83 Generalized weakness R53.1 Ambulatory dysfunction R26.2 QUENTIN (acute kidney injury) N17.9 Chronic respiratory failure with hypoxia J96.11
[2025-09-30] MEDS: POTASSIUM CHLORIDE CRTAB 20 MEQ TABCR PO SCH (10:48)
--- NOTE | 2025-09-30 11:59 | Psychiatric Consultation ---
Date of Consultation September 30, 2025 Impression / Recommendations Impression Diagnostically consistent with unspecified depressive disorder likely adjustment disorder with depressed and anxious mood in setting of increased physical pain and need for subacute rehab and being away from his . Encouragingly has been consistent with his medications since reducing his psychiatric polypharmacy during previous medical admission. However, he worries about increased anxiety so reasonable to consider use of clonidine or buspar if symptoms worsen at [facility]. Acute risk of self-harm is low given denial of SI, very future-oriented and hopeful about increased mobility gains at subacute rehab, outpatient providers and strong deterrent/reason for living of his . Chronic risk is moderate to high given multiple non-modifiable risk factors (past attempts, past psych hospitalizations, psychiatric co-morbid conditions, periods of impulsivity) but also with some protective factors including marriage, outpatient providers, sense of responsibility to family and social supports, positive coping skills. Counseled on ways to reduce acute and chronic risk including engaging with outpatient providers, finding ways to add purpose and meaning, utilizing supports, and taking medication. Overall, I spent a total of 60 minutes with this case including review of chart records, review of labwork, review of EKG QTc, direct evaluation of the patient at bedside, counseling the patient, discussion of the patient with the hospitalist provider, discussion with the psychiatric liason during clinical rounds, review of collateral historian information from the family and documentation in the electronic health record. (1) Ambulatory dysfunction: (2) Generalized weakness: (3) Adjustment disorder with mixed anxiety and depressed mood: (4) PTSD (post-traumatic stress disorder): Plan -If anxiety persists at [facility] would recommend use of * Clonidine 0.1mg po or q7day patch to limit pill burden as off-label for anxiety if BP/HR can tolerate this * OR Buspar 5mg TID po -Continue risperidone and melatonin Psych History Identifying Data Waldo is a 55-year-old man with past medical history of psychogenic nonepileptic seizure, bipolar disorder, diabetes insipidus, panhypopituitarism, asthma, demyelinating disease, GERD, ulcerative colitis, depression, anxiety, and medication noncompliance he presented from home at the advice of his outpatient physical therapist with generalized weakness and fatigue. Chief Complaint "I get more pain and then it impacts my mobility level and then it makes my depression and anxiety worse". History of Present Illness Waldo is known to the psychiatry consult service from previous inpatient medical admissions and was last seen on 09/14/2025 at which time we reduced some of his medications in an effort to increase adherence. Since then he reports being adherent with all of his medications. He feels his anxiety is increased because he knows he will be going to [facility] for physical rehab and that "being stuck over there without my makes it hard". Asked about current mood symptoms he reports some depression and anxiety related largely to his pain level and mobility level and fluctuating based on how well he responds to pain medications. He reports "I have no suicidality". With psychiatric liaison yesterday he reported frequent passive suicidal ideation but he remains full code, wants to be alive and is very future oriented including returning home to be with his once his pain and mobility improves. He is interested in any medications that could be used short-term while he is at [facility] to help with his anxiety as he anticipates it could increase while he is there. He denies any other questions or concerns. Continues to find risperidone helpful. He missed his last appointment at [facility] but states they typically get him in within a week and so he and his agreed to call to reschedule once he is nearing the end of his stay at [facility]. Allergies Allergy/AdvReac Type Severity Reaction Status Date / Time clindamycin Allergy Intermediate SWELLING Verified 09/24/25 17:25 Iodinated Contrast Media Allergy Intermediate face/eye Verified 09/24/25 17:25 swelling Quinolones Allergy Intermediate HIVES Verified 09/24/25 17:25 tomato Allergy Intermediate swelling Verified 09/24/25 17:25 metformin AdvReac Unknown lactic Verified 09/24/25 17:25 acidosis Home Medications Medication Instructions Recorded Confirmed Type fluticasone propionate 50 1 spray intranasal HS PRN allergy 03/16/23 09/24/25 Rx mcg/actuation nasal symptoms #16 grams spray,suspension (Flonase Allergy Relief) FreeStyle Rosalie 2 [place] (flash #1 ea 05/13/23 09/05/25 Rx glucose scanning reader) blood sugar diagnostic (Qbixuch #150 ea 11/22/23 09/05/25 Rx Verio test strips) blood-glucose meter (Qbixuch #1 ea 11/22/23 09/05/25 Rx Verio Reflect Meter) lancets 33 gauge (OneToCraneware Delica #150 ea 11/22/23 09/05/25 Rx Plus Lancet) glucagon 3 mg/actuation nasal 3 mg intranasal DIRECTED PRN 04/06/24 09/24/25 History spray (Baqsimi) Severe Hypoglycemia ipratropium 0.5 mg-albuterol 3 mg 3 ml inhalation QID PRN wheezing 07/31/24 09/24/25 Rx (2.5 mg base)/3 mL nebulization #90 mL soln nebulizers (Compact Compressor #1 ea 07/31/24 09/05/25 Rx Nebulizer) vitamin B complex (Vitamins B 1 cap PO QAM #30 caps 10/26/24 09/24/25 Rx Complex capsule) Oxygen Home 01/30/25 09/05/25 History magnesium oxide 400 mg (241.3 mg 400 mg PO HS 03/01/25 09/24/25 History magnesium) tablet acetylcysteine 200 mg/mL (20 %) 2 ml inhalation BID PRN Chest 03/26/25 09/24/25 Rx solution congestion #100 mL cholecalciferol (vitamin D3) 50 50 mcg PO QPM #90 caps 03/26/25 09/24/25 Rx mcg (2,000 unit) capsule sodium chloride 7 % for 1 inh inhalation BID #240 mL 03/26/25 09/24/25 Rx nebulization FreeStyle Rosalie 2 Sensor (flash #6 ea 05/06/25 09/05/25 Rx glucose sensor) desmopressin 0.2 mg tablet 0.4 mg (2 x 0.2 mg) PO BID #120 05/16/25 09/24/25 Rx tabs naloxone 4 mg/actuation nasal 1 spray intranasal ONCE PRN opioid 05/18/25 09/24/25 Rx spray (Narcan) overdose #2 ea somatropin 5 mg/1.5 mL (3.3 mg/mL) 3 mg subcut QPM 05/29/25 09/24/25 History subcutaneous pen injector (Norditropin FlexPro) FreeStyle Rosalie 2 Plus Sensor #6 ea 06/04/25 09/05/25 Rx (blood-glucose sensor) hydrocortisone 10 mg tablet 10 mg PO QPM 06/13/25 09/24/25 History dutasteride 0.5 mg capsule 0.5 mg PO QAM #90 caps 06/19/25 09/24/25 Rx albuterol sulfate 90 mcg/actuation 2 inh inhalation Q6H PRN shortness 07/01/25 09/24/25 Rx aerosol inhaler (Ventolin HFA) of breath or wheezing #6.7 grams arformoterol 15 mcg/2 mL solution 2 ml inhalation BID #120 mL 07/01/25 09/24/25 Rx for nebulization (Brovana) budesonide 0.5 mg/2 mL suspension 0.5 mg (2 mL) inhalation BID #60 mL 07/01/25 09/24/25 Rx for nebulization hydrocortisone 10 mg tablet 20 mg PO QAM 07/02/25 09/24/25 History clopidogrel 75 mg tablet 75 mg PO QPM 08/06/25 09/24/25 History famotidine 20 mg tablet 20 mg PO QAM 08/06/25 09/24/25 History lacosamide 150 mg tablet 150 mg PO BID 08/06/25 09/24/25 History levetiracetam 1,000 mg tablet 250 mg PO BID 08/06/25 09/24/25 History levothyroxine 200 mcg tablet 200 mcg PO QAM 08/06/25 09/24/25 History lisinopril 10 mg tablet 20 mg PO QPM 08/06/25 09/24/25 History ramelteon 8 mg tablet 8 mg PO QPM 08/06/25 09/24/25 History propranolol 120 mg capsule,24 120 mg PO HS #90 caps 08/12/25 09/24/25 Rx hr,extended release docusate sodium 100 mg capsule 100 mg PO BID 30 days #60 caps 08/13/25 09/24/25 Rx ascorbic acid (vitamin C) 250 mg 250 mg PO BID #60 tabs 08/30/25 09/24/25 Rx tablet oxycodone-acetaminophen 5 mg-325 1 tab PO Q6H PRN very severe pain 09/04/25 09/24/25 Rx mg tablet (Percocet) only 1 month #120 tabs ondansetron 8 mg disintegrating 8 mg PO Q8H PRN nausea and 09/10/25 09/24/25 Rx tablet vomiting #90 tabs divalproex 500 mg tablet,extended 1,000 mg PO QAM 09/11/25 09/24/25 History release 24 hr ferrous sulfate 325 mg (65 mg 325 mg PO BID 09/14/25 09/24/25 History iron) tablet insulin glargine 100 unit/mL (3 12 unit subcut HS 09/14/25 09/24/25 History mL) subcutaneous pen (Lantus Solostar U-100 Insulin) clonidine 0.1 mg/24 hr weekly 1 patch transdermal Q7D 28 days #4 09/15/25 09/24/25 Rx transdermal patch ea risperidone 2 mg tablet 2 mg PO QAM 30 days #30 tabs 09/15/25 09/24/25 Rx Patient History Medical History Acute hypokalemia Hypomagnesemia Atrial tachycardia Calcium nephrolithiasis Seizure disorder Intractable back pain Bilateral nephrolithiasis Compartment syndrome of lower extremity Entered 02/2025 Venous stasis ulcers Chronic venous insufficiency Secondary cataract of left eye with vision obscured Combined form of senile cataract of right eye CHF (congestive heart failure) EF WNL on 10/2024 ECHO COPD (chronic obstructive pulmonary disease) follows with dr. mccarthy (last seen april 2025)- well controlled with nebs/inhaler- last used rescue inhaler jun 2025- wears O24L at all times Arachnoid cyst of posterior cranial fossa Benign congenital arachnoid cyst in the posterior fossa per 01/2025 brain MRI BPH with obstruction/lower urinary tract symptoms Right leg pain had seizure 09/2024 "that messed up my back and leg" pt reports will go to [facility] on 09/13/25 to see a neurosurgeon Blood loss anemia (06/2025) admit to [facility], required blood transfusion Therapeutic opioid-induced constipation (OIC) Bipolar 1 disorder Back pain at L4-L5 level will see [facility] surgeon on 09/13/25 Hypokalemia Frequent falls most recent- last week, states "im very sore" - states will see pcp dr. rodrigues on 09/13/25 Generalized weakness Generalized pain Hypomagnesemia Hyperphosphatemia CHI (closed head injury) reports multiple due to seizures/falls Kidney stones no current pain History of pneumonia (03/2025) states has been admitted for total of 36 days ytd at [facility] for pneumonia Ocular hypertension Ulcerative colitis Mixed hyperlipidemia Lumbar stenosis with neurogenic claudication Idiopathic polyneuropathy Essential tremor Demyelinating disease Compartment syndrome of lower extremity (02/2025) per hx Chronic venous insufficiency Depression with anxiety On home O2 4 L nc History of recent hospitalization reports has been admitted to hospital over 100 days in 2024- last was at [facility] 06/2025- all at [facility] Urinary tract obstruction due to kidney stone LPRD (laryngopharyngeal reflux disease) Uncontrolled type 2 diabetes mellitus with hyperglycemia Suspect low glycation index meaning his A1c is typically about 2 points lower than what his average glucose would suggest. Hypothyroidism Central hypothyroidism Non-occlusive coronary artery disease Chronic narcotic dependence Restrictive lung disease follows with dr. mccarthy, on O2 4L nc at all times Obstructive sleep apnea cpap Pituitary hypogonadism Follows with endocrinology- Secondary adrenal insufficiency Transient alteration of awareness Migraine Growth hormone deficiency on medication (treated with growth hormone per endocrine) Closed fracture of right fibula with malunion will see [facility] surgeon on 09/13/25- wears boot daily Shortness of breath only if not wearing oxygen Obesity CKD (chronic kidney disease), stage III follows with neph- dr. espinoza (will see 10/2025) Atrial fibrillation (02/15/24) no cardioversion- has loop recorder and watchmans device, follows with dr. kilgore (will see 09/18/25) Panhypopituitarism "Iatrogenic cazares hypopituitarism" Syncope and collapse Reason for loop recorder No recent issues since bed bound from femur fracture in Sep 2022 per patient Recurrent seizures - PNES per records goes sometimes months without seizures, then may may have 2 in one day- last seizure-June 2025- grand mal- follows with dr. villa (07/2025) Pituitary diabetes insipidus on medication (DDAVP) follows with endocrine Spondylolysis, lumbar region Right lumbar radiculopathy HTN (hypertension) Adrenal insufficiency On hydrocortisone Hyperactive gag reflex Epidural lipomatosis Chronic left sacroiliac pain Presence of cardiac device Loop recorder > placed at [facility]- last checked fall 2023 Cerebral concussion May 2023 during seizure > no further issues Orthostatic hypotension Sensorineural hearing loss of both ears Rectal bleeding on occasion History of COVID-19 10/2021 - fatigue; resolved. Mitral valve regurgitation follows with Dr. kilgore no significant MR noted on 10/2024 ECHO Vertigo Lower extremity edema Bilateral hand pain Pituitary neoplasm Dx'ed in 2001- s/p surgical resection and XRT Repeat surgery in 2018 secondary to tumor regrowth at [facility] - Follows with endo- repeat pituitary MRI scheduled 2027 Bladder mass benign Surgical History Hx of flexible sigmoidoscopy (07/03/25) History of open reduction and internal fixation (ORIF) procedure (2009) right 5th metatarsal, has pins and cadaver bone, still gets painful- 2009 right femur- as a child Presence of Watchman left atrial appendage closure device (02/2024) eric History of arthroplasty of left knee (2014) S/P TURP (status post transurethral resection of prostate) History of lumbar fusion (07/2022) [facility] [place] - History of cardiac cath (07/2021) 07/2021 - no stents- no mi - [facility]- follows with dr. kilgore S/P epidural steroid injection History of lithotripsy History of bladder surgery remove mass History of prostate surgery (2016) remove mass- not malignant History of colonoscopy History of esophagogastroduodenoscopy (EGD) History of tooth extraction History of wisdom tooth extraction History of brain surgery (2018) x2---2004 @ [facility] [place], 2018 @ 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 Prostate cancer Heart disease Osteoarthritis Mother , at 84 years of age from acute [place]. Cardiac disorder Grandmother (Maternal) Myocardial infarction Other Asthma Cancer Hypertension No family history of adverse response to anesthesia No family history of bleeding disorder Stroke Denies family history of Ovarian cancer Breast cancer Colorectal cancer Social History Smoking Status: Never smoker Tobacco Type: Smokeless Tobacco (Dip or Chew) Second Hand Exposure: No; Do You Dip or Chew Tobacco: No; Hx Alcohol Use: No Hx Substance Use: No Preferred Language: Frisian Communication Ability: Effective Communication Ability Comment: Unable to obtain due to patient condition. Visual Impairment: Limited Hearing Ability: Normal Cattle Feeder Required: No Beliefs That Will Affect Care: None marital status: Single Current Living Situation: Family Current Living Situation Comment: and daughter in [place] current occupational status: disabled How many Children do You have: 3 How many Children do You have Comment: able to assist with care if needed Feels Safe at Home: Yes Childhood Exposure to Second-Hand Smoke: Yes (parents smoked) Diet: regular Diet Comment: going to be starting low carb/low calorie diet. caffeine: No (1/2 20 oz bottle of mountain dew. ) during the past year weight has: increased > 10 lbs Physical Activity Frequency: Daily Physical Activity Frequency Comment: walking, 1.5 miles daily. Seatbelt Use: always Do you think of yourself as: straight/heterosexual Gender Identity: Male Assistive Devices: Cane, CPAP, Oxygen - Continuous and Walker Physical Exam Vital Signs (Past 24 Hours): Last Vital Signs Temp 36.6 C 09/29/25 22:29 Pulse 53 L 09/30/25 07:10 Resp 16 09/30/25 07:10 BP 146/74 H 09/29/25 22:29 Pulse Ox 98 09/30/25 07:10 O2 Del Method Nasal Cannula 09/30/25 08:30 O2 Flow Rate 1 09/30/25 08:30 FiO2 96 09/25/25 19:54 Results & Data (PSY) Medications Administered Acetaminophen (Acetaminophen 325 Mg Tab) 650 mg PO Q4H PRN PRN Reason: pain/fever Stop: 10/24/25 20:29 Last Admin: 09/28/25 11:32 Dose: 650 mg Documented By: HRB Aspirin (Aspirin 81 Mg Ectab) 81 mg PO DAILY [facility] Stop: 10/25/25 08:59 Last Admin: 09/30/25 07:57 Dose: 81 mg Documented By: Admin: 09/29/25 09:31 Dose: 81 mg Documented By: Admin: 09/28/25 08:48 Dose: 81 mg Documented By: Admin: 09/27/25 08:23 Dose: 81 mg Documented By: Admin: 09/26/25 08:50 Dose: 81 mg Documented By: Admin: 09/25/25 09:28 Dose: 81 mg Documented By: SALOMÓNK Budesonide (Budesonide 0.5 Mg/2 Ml Vial (Pulmicort)) 0.5 mg INH BIDR [facility] Stop: 10/24/25 20:59 Last Admin: 09/30/25 07:09 Dose: 0.5 mg Documented By: Admin: 09/29/25 19:44 Dose: 0.5 mg Documented By: Admin: 09/29/25 07:09 Dose: 0.5 mg Documented By: Admin: 09/28/25 20:02 Dose: 0.5 mg Documented By: Admin: 09/28/25 10:09 Dose: 0.5 mg Documented By: [id number] Admin: 09/27/25 19:33 Dose: 0.5 mg Documented By: Admin: 09/27/25 07:07 Dose: 0.5 mg Documented By: Admin: 09/26/25 19:26 Dose: 0.5 mg Documented By: Admin: 09/26/25 07:28 Dose: 0.5 mg Documented By: Admin: 09/25/25 19:47 Dose: 0.5 mg Documented By: percy Admin: 09/25/25 07:07 Dose: 0.5 mg Documented By: Admin: 09/24/25 21:23 Dose: 0.5 mg Documented By: percy Clopidogrel Bisulfate (Clopidogrel Bisulfate 75 Mg Tab) 75 mg PO QPM OBDULIO Stop: 10/24/25 20:59 Last Admin: 09/29/25 20:06 Dose: 75 mg Documented By: Admin: 09/29/25 00:02 Dose: 75 mg Documented By: Admin: 09/27/25 21:16 Dose: 75 mg Documented By: Admin: 09/26/25 21:21 Dose: 75 mg Documented By: Admin: 09/25/25 21:12 Dose: 75 mg Documented By: Admin: 09/24/25 21:47 Dose: 75 mg Documented By: MARKEL Desmopressin Acetate (Desmopressin Acetate 0.1 Mg Tab) 0.4 mg PO BID OBDULIO Stop: 10/24/25 20:59 Last Admin: 09/30/25 07:56 Dose: 0.4 mg Documented By: Admin: 09/29/25 20:06 Dose: 0.4 mg Documented By: Admin: 09/29/25 09:31 Dose: 0.4 mg Documented By: Admin: 09/29/25 00:01 Dose: 0.4 mg Documented By: Admin: 09/28/25 08:48 Dose: 0.4 mg Documented By: Admin: 09/27/25 21:15 Dose: 0.4 mg Documented By: Admin: 09/27/25 08:24 Dose: 0.4 mg Documented By: Admin: 09/26/25 21:21 Dose: 0.4 mg Documented By: Admin: 09/26/25 08:51 Dose: 0.4 mg Documented By: Admin: 09/25/25 21:12 Dose: 0.4 mg Documented By: Admin: 09/25/25 09:28 Dose: 0.4 mg Documented By: Admin: 09/24/25 21:47 Dose: 0.4 mg Documented By: MARKEL Divalproex Sodium (Divalproex Extended Release 500 Mg Tab) 1,000 mg PO QAM OBDULIO Stop: 10/25/25 08:59 Last Admin: 09/30/25 07:56 Dose: 1,000 mg Documented By: Admin: 09/29/25 09:31 Dose: 1,000 mg Documented By: Admin: 09/28/25 08:48 Dose: 1,000 mg Documented By: Admin: 09/27/25 08:24 Dose: 1,000 mg Documented By: Admin: 09/26/25 08:50 Dose: 1,000 mg Documented By: Admin: 09/25/25 09:28 Dose: 1,000 mg Documented By: COSTA Docusate Sodium (Docusate Sodium 100 Mg Cap) 100 mg PO BID OBDULIO Stop: 10/24/25 20:59 Last Admin: 09/30/25 07:55 Dose: 100 mg Documented By: Admin: 09/29/25 20:03 Dose: 100 mg Documented By: Admin: 09/29/25 09:31 Dose: 100 mg Documented By: Admin: 09/29/25 00:01 Dose: 100 mg Documented By: Admin: 09/28/25 08:48 Dose: 100 mg Documented By: Admin: 09/27/25 21:14 Dose: 100 mg Documented By: Admin: 09/27/25 08:24 Dose: 100 mg Documented By: Admin: 09/26/25 21:20 Dose: 100 mg Documented By: Admin: 09/26/25 08:56 Dose: 100 mg Documented By: Admin: 09/25/25 21:12 Dose: 100 mg Documented By: Admin: 09/25/25 09:35 Dose: 100 mg Documented By: Admin: 09/24/25 21:42 Dose: 100 mg Documented By: MARKEL Famotidine (Famotidine 20 Mg Tab) 20 mg PO QA OBDULIO Stop: 10/25/25 08:59 Last Admin: 09/30/25 07:55 Dose: 20 mg Documented By: Admin: 09/29/25 09:31 Dose: 20 mg Documented By: Admin: 09/28/25 08:48 Dose: 20 mg Documented By: Admin: 09/27/25 08:24 Dose: 20 mg Documented By: Admin: 09/26/25 08:56 Dose: 20 mg Documented By: Admin: 09/25/25 09:35 Dose: 20 mg Documented By: COSTA Ferrous Sulfate (Ferrous Sulfate 325 Mg Tab) 325 mg PO Q48H OBDULIO Stop: 10/24/25 20:59 Last Admin: 09/29/25 00:03 Dose: 325 mg Documented By: Admin: 09/26/25 21:21 Dose: 325 mg Documented By: Admin: 09/24/25 21:47 Dose: 325 mg Documented By: MARKEL Finasteride (Finasteride 5 Mg Tab) 5 mg PO QA OBDULIO Stop: 10/25/25 08:59 Last Admin: 09/30/25 07:56 Dose: 5 mg Documented By: Admin: 09/29/25 09:31 Dose: 5 mg Documented By: Admin: 09/28/25 08:48 Dose: 5 mg Documented By: Admin: 09/27/25 08:24 Dose: 5 mg Documented By: Admin: 09/26/25 08:50 Dose: 5 mg Documented By: Admin: 09/25/25 09:29 Dose: 5 mg Documented By: COSTA Formoterol Fumarate (Formoterol 20 Mcg/2 Ml Vial) 20 mcg INH BIDR OBDULIO Stop: 10/24/25 20:59 Last Admin: 09/30/25 07:09 Dose: 20 mcg Documented By: Admin: 09/29/25 19:44 Dose: 20 mcg Documented By: Admin: 09/29/25 07:09 Dose: 20 mcg Documented By: Admin: 09/28/25 20:03 Dose: 20 mcg Documented By: Admin: 09/28/25 10:09 Dose: 20 mcg Documented By: [id number] Admin: 09/27/25 19:33 Dose: 20 mcg Documented By: Admin: 09/27/25 07:07 Dose: 20 mcg Documented By: Admin: 09/26/25 19:26 Dose: 20 mcg Documented By: Admin: 09/26/25 07:28 Dose: 20 mcg Documented By: Admin: 09/25/25 19:48 Dose: 20 mcg Documented By: percy Admin: 09/25/25 07:08 Dose: 20 mcg Documented By: Admin: 09/24/25 21:23 Dose: 20 mcg Documented By: percy Hydrocortisone (Hydrocortisone 10 Mg Tab) 20 mg PO QPM OBDULIO Stop: 10/24/25 20:59 Last Admin: 09/29/25 20:06 Dose: 20 mg Documented By: Admin: 09/29/25 00:02 Dose: 20 mg Documented By: Admin: 09/27/25 21:16 Dose: 20 mg Documented By: Admin: 09/26/25 21:20 Dose: 20 mg Documented By: Admin: 09/25/25 21:13 Dose: 20 mg Documented By: Admin: 09/24/25 21:47 Dose: 20 mg Documented By: MARKEL Hydrocortisone (Hydrocortisone 10 Mg Tab) 40 mg PO QAM OBDULIO Stop: 10/25/25 08:59 Last Admin: 09/30/25 07:57 Dose: 40 mg Documented By: Admin: 09/29/25 09:31 Dose: 40 mg Documented By: Admin: 09/28/25 08:48 Dose: 40 mg Documented By: Admin: 09/27/25 08:24 Dose: 40 mg Documented By: Admin: 09/26/25 08:50 Dose: 40 mg Documented By: Admin: 09/25/25 09:29 Dose: 40 mg Documented By: SALOMÓNK Insulin Aspart (Insulin Aspart Per Unit Charge) 0 units SC ACHS OBDULIO Stop: 10/24/25 20:59 Last Admin: 09/30/25 08:02 Dose: 5 units Documented By: K Co-signed By: FIFI Admin: 09/29/25 20:51 Dose: 2 units Documented By: BH Co-signed By: [email or web address] Admin: 09/29/25 17:02 Dose: 6 units Documented By: HRB Co-signed By: AAH Admin: 09/29/25 12:04 Dose: 5 units Documented By: HRB Co-signed By: MELIDA Admin: 09/29/25 09:17 Dose: 4 units Documented By: HRB Co-signed By: MELIDA Admin: 09/28/25 23:44 Dose: Not Given Documented By: LILIANE Co-signed By: [id number] Admin: 09/28/25 17:37 Dose: Not Given Documented By: HRB Co-signed By: AA Admin: 09/28/25 12:24 Dose: 5 units Documented By: HRB Co-signed By: AA Admin: 09/28/25 08:34 Dose: 5 units Documented By: HRB Co-signed By: SIMRAN Admin: 09/27/25 21:10 Dose: Not Given Documented By: HKChristopher Co-signed By: [id number] Admin: 09/27/25 17:47 Dose: 6 units Documented By: HRB Co-signed By: AA Admin: 09/27/25 12:29 Dose: 5 units Documented By: HRB Co-signed By: PRICILLA Admin: 09/27/25 08:46 Dose: 3 units Documented By: HRB Co-signed By: AC Admin: 09/26/25 21:19 Dose: 2 units Documented By: LUIS Co-signed By: FELISA Admin: 09/26/25 18:12 Dose: 5 units Documented By: DOMINIC Co-signed By: RADHA Admin: 09/26/25 12:17 Dose: 3 units Documented By: DOMINIC Co-signed By: AC Admin: 09/26/25 08:48 Dose: 3 units Documented By: DOMINIC Co-signed By: RADHA Admin: 09/25/25 21:13 Dose: Not Given Documented By: MONICAW Co-signed By: FELISA Admin: 09/25/25 18:33 Dose: Not Given Documented By: Admin: 09/25/25 12:03 Dose: Not Given Documented By: Admin: 09/25/25 09:26 Dose: Not Given Documented By: Admin: 09/24/25 21:18 Dose: Not Given Documented By: MARKEL Co-signed By: MONA Insulin Glargine (Lantus Per Unit Charge) 0 units SC HS OBDULIO; Protocol Stop: 10/25/25 20:59 Last Admin: 09/29/25 20:52 Dose: 8 units Documented By: MARKEL Co-signed By: ORLANDO Admin: 09/28/25 23:44 Dose: Not Given Documented By: Admin: 09/27/25 21:10 Dose: Not Given Documented By: Admin: 09/26/25 21:18 Dose: 8 units Documented By: LUIS Co-signed By: FELISA Admin: 09/25/25 21:13 Dose: Not Given Documented By: ALEX Lacosamide (Lacosamide 50 Mg Tablet) 150 mg PO BID [facility] [place] Stop: 10/24/25 20:59 Last Admin: 09/30/25 07:55 Dose: 150 mg Documented By: Admin: 09/29/25 20:03 Dose: 150 mg Documented By: Admin: 09/29/25 09:31 Dose: 150 mg Documented By: Admin: 09/29/25 00:01 Dose: 150 mg Documented By: Admin: 09/28/25 08:48 Dose: 150 mg Documented By: Admin: 09/27/25 21:14 Dose: 150 mg Documented By: Admin: 09/27/25 08:25 Dose: 150 mg Documented By: Admin: 09/26/25 21:20 Dose: 150 mg Documented By: Admin: 09/26/25 09:02 Dose: 150 mg Documented By: Admin: 09/25/25 21:18 Dose: 150 mg Documented By: Admin: 09/25/25 09:35 Dose: 150 mg Documented By: Admin: 09/24/25 21:51 Dose: 150 mg Documented By: MARKEL Levetiracetam (Levetiracetam 250 Mg Tab) 250 mg PO BID [facility] [place] Stop: 10/24/25 20:59 Last Admin: 09/30/25 07:58 Dose: 250 mg Documented By: Admin: 09/29/25 20:06 Dose: 250 mg Documented By: Admin: 09/29/25 09:31 Dose: 250 mg Documented By: Admin: 09/29/25 00:03 Dose: 250 mg Documented By: Admin: 09/28/25 08:48 Dose: 250 mg Documented By: Admin: 09/27/25 21:15 Dose: 250 mg Documented By: Admin: 09/27/25 08:25 Dose: 250 mg Documented By: Admin: 09/26/25 21:21 Dose: 250 mg Documented By: Admin: 09/26/25 08:50 Dose: 250 mg Documented By: Admin: 09/25/25 21:14 Dose: 250 mg Documented By: Admin: 09/25/25 09:30 Dose: 250 mg Documented By: Admin: 09/24/25 21:47 Dose: 250 mg Documented By: MARKEL Levothyroxine Sodium (Levothyroxine Sodium 200 Mcg Tablet) 200 mcg PO DAILYBB [facility] Stop: 10/25/25 06:29 Last Admin: 09/30/25 05:47 Dose: 200 mcg Documented By: Admin: 09/29/25 05:42 Dose: 200 mcg Documented By: Admin: 09/28/25 05:37 Dose: 200 mcg Documented By: Admin: 09/27/25 05:24 Dose: 200 mcg Documented By: Admin: 09/26/25 05:33 Dose: 200 mcg Documented By: Admin: 09/25/25 06:15 Dose: 200 mcg Documented By: MARKEL Lisinopril (Lisinopril 20 Mg Tab) 20 mg PO DAILY [facility] Stop: 10/27/25 09:14 Last Admin: 09/30/25 07:57 Dose: 20 mg Documented By: Admin: 09/29/25 09:31 Dose: 20 mg Documented By: Admin: 09/28/25 08:48 Dose: 20 mg Documented By: Admin: 09/27/25 10:07 Dose: 20 mg Documented By: MEGAN Magnesium Oxide (Magnesium Oxide 400 Mg Tab) 400 mg PO HS [facility] Stop: 10/24/25 20:59 Last Admin: 09/29/25 20:06 Dose: 400 mg Documented By: Admin: 09/29/25 00:03 Dose: 400 mg Documented By: Admin: 09/27/25 21:15 Dose: 400 mg Documented By: Admin: 09/26/25 21:21 Dose: 400 mg Documented By: Admin: 09/25/25 21:14 Dose: 400 mg Documented By: Admin: 09/24/25 21:47 Dose: 400 mg Documented By: MARKEL Melatonin (Melatonin 3 Mg Tab) 6 mg PO HS [facility] Stop: 10/28/25 20:59 Last Admin: 09/29/25 20:03 Dose: 6 mg Documented By: Admin: 09/28/25 23:31 Dose: Not Given Documented By: LILIANE Oxycodone/Acetaminophen (Oxycodone/Acetaminophen 5mg/325mg Tab) 1 tab PO Q6H PRN PRN Reason: very severe pain only Stop: 10/08/25 20:29 Last Admin: 09/30/25 08:05 Dose: 1 tab Documented By: Admin: 09/29/25 19:28 Dose: 1 tab Documented By: Admin: 09/29/25 10:47 Dose: 1 tab Documented By: Admin: 09/28/25 04:22 Dose: 1 tab Documented By: Admin: 09/27/25 21:25 Dose: 1 tab Documented By: Admin: 09/27/25 14:20 Dose: 1 tab Documented By: Admin: 09/27/25 07:32 Dose: 1 tab Documented By: Admin: 09/26/25 21:19 Dose: 1 tab Documented By: LUIS Potassium Chloride (Potassium Chloride Crtab 20 Meq Tabcr) 40 meq PO TODAY@0815 [facility] [place] Stop: 09/30/25 12:00 Last Admin: 09/30/25 10:48 Dose: 40 meq Documented By: JESSY Risperidone (Risperidone 2 Mg Tablet) 2 mg PO QAM [facility] [place] Stop: 10/25/25 08:59 Last Admin: 09/30/25 07:57 Dose: 2 mg Documented By: Admin: 09/29/25 09:31 Dose: 2 mg Documented By: Admin: 09/28/25 08:49 Dose: 2 mg Documented By: Admin: 09/27/25 08:25 Dose: 2 mg Documented By: Admin: 09/26/25 08:52 Dose: 2 mg Documented By: Admin: 09/25/25 09:30 Dose: 2 mg Documented By: SALOMÓNK Sodium Chloride (Sodium Chlor 7% 4 Ml Neb) 4 ml INH BIDR [facility] Stop: 10/24/25 20:59 Last Admin: 09/30/25 07:09 Dose: 4 ml Documented By: Admin: 09/29/25 19:44 Dose: 4 ml Documented By: Admin: 09/29/25 07:10 Dose: 4 ml Documented By: Admin: 09/28/25 20:02 Dose: 4 ml Documented By: Admin: 09/28/25 10:09 Dose: 4 ml Documented By: [email or web address] Admin: 09/27/25 19:33 Dose: 4 ml Documented By: Admin: 09/27/25 07:07 Dose: 4 ml Documented By: Admin: 09/26/25 19:26 Dose: 4 ml Documented By: Admin: 09/26/25 07:28 Dose: 4 ml Documented By: Admin: 09/25/25 19:48 Dose: 4 ml Documented By: percy Admin: 09/25/25 07:08 Dose: 4 ml Documented By: Admin: 09/24/25 21:23 Dose: 4 ml Documented By: percy Vitamin B Complex (Vitamin B Complex Tab) 1 tab PO QAM [facility] Stop: 10/25/25 08:59 Last Admin: 09/30/25 10:48 Dose: 1 tab Documented By: Admin: 09/29/25 09:32 Dose: 1 tab Documented By: Admin: 09/28/25 08:48 Dose: 1 tab Documented By: Admin: 09/27/25 08:25 Dose: 1 tab Documented By: Admin: 09/26/25 08:50 Dose: 1 tab Documented By: Admin: 09/25/25 09:30 Dose: 1 tab Documented By: COSTA Vitamin D (Cholecalciferol 25 Mcg (1000 Units) Tab) 50 mcg PO QPM [facility] Stop: 10/24/25 20:59 Last Admin: 09/29/25 20:06 Dose: 50 mcg Documented By: Admin: 09/29/25 00:02 Dose: 50 mcg Documented By: HKChristopher Admin: 09/27/25 21:15 Dose: 50 mcg Documented By: Admin: 09/26/25 21:20 Dose: 50 mcg Documented By: Admin: 09/25/25 21:11 Dose: 50 mcg Documented By: Admin: 09/24/25 21:47 Dose: 50 mcg Documented By: MARKEL Coding Level of Care Code 76001 IN/OBS CONSULT LVL 4,60M Diagnoses Ambulatory dysfunction R26.2 Generalized weakness R53.1 Adjustment disorder with mixed anxiety and depressed mood F43.23 PTSD (post-traumatic stress disorder) F43.10
--- NOTE | 2025-10-03 12:18 | Electrocardiogram Report ---
Test Reason : Blood Pressure : */* mmHG Vent. Rate : 63 BPM Atrial Rate : 63 BPM P-R Int : 148 ms QRS Dur : 92 ms QT Int : 440 ms P-R-T Axes : 59 -1 23 degrees QTcB Int : 450 ms Normal sinus rhythm Normal ECG When compared with ECG of 24-Sep-2025 11:18, No significant change was found Confirmed by Bo Edwards ([id number]) on 10/03/2025 12:17:32 PM Referred By: REFERRED SELF Confirmed By: Bo Edwards
== END 2025-09-30 16:30 | DRG 682 ==
LOC: EDSEX → SUATTDRO → ED 11:09 → INTOOBSV 14:47 → 3E 14:47 → SUATTDRO 14:47 → 3E 20:09

== ENCOUNTER 2025-10-29 17:15 | Inpatient (IN) ==
--- NOTE | 2025-10-29 18:21 | Emergency Department Note ---
History of Present Illness General Chief complaint: Confusion Stated complaint: CONFUSION, PAIN ALL OVER Time Seen by Provider: 10/29/25 17:44 Source: patient Mode of arrival: ambulatory Limitations: no limitations History of Present Illness Maximum Pain Intensity: 10 Patient is a 55-year-old male with history of psychogenic nonepileptic seizures, bipolar disorder, diabetes insipidus, panhypopituitarism, asthma, demyelinating disease, GERD, ulcerative colitis, depression, anxiety who presents for diffuse body aches that started yesterday. Also endorses increased fatigue. He says he slept all day. Says he has pain throughout his entire body that is new. Denies any rash, joint swelling, trauma or injury. He does state that he had a fever last night. No sick contacts at home. No recent travel. Did not take any stress dose steroids currently. No tick bites reported. Takes oxycodone [id number] for pain. No new medications or change in dosing. Home Medications Medication Instructions Recorded Confirmed Type fluticasone propionate 50 1 spray intranasal HS PRN allergy 03/16/23 10/29/25 Rx mcg/actuation nasal symptoms #16 grams spray,suspension (Flonase Allergy Relief) FreeStyle Rosalie 2 [place] (flash #1 ea 05/13/23 10/29/25 Rx glucose scanning reader) blood sugar diagnostic (OneTouch #150 ea 11/22/23 10/29/25 Rx Verio test strips) blood-glucose meter (OneTouch #1 ea 11/22/23 10/29/25 Rx Verio Reflect Meter) lancets 33 gauge (OneTouch Delica #150 ea 11/22/23 10/29/25 Rx Plus Lancet) glucagon 3 mg/actuation nasal 3 mg intranasal DIRECTED PRN 04/06/24 10/29/25 History spray (Baqsimi) Severe Hypoglycemia ipratropium 0.5 mg-albuterol 3 mg 3 ml inhalation QID PRN wheezing 07/31/24 10/29/25 Rx (2.5 mg base)/3 mL nebulization #90 mL soln nebulizers (Compact Compressor #1 ea 07/31/24 10/29/25 Rx Nebulizer) vitamin B complex (Vitamins B 1 cap PO QAM #30 caps 10/26/24 10/29/25 Rx Complex capsule) Oxygen Home 01/30/25 10/29/25 History magnesium oxide 400 mg (241.3 mg 400 mg PO HS 03/01/25 10/29/25 History magnesium) tablet acetylcysteine 200 mg/mL (20 %) 2 ml inhalation BID PRN Chest 03/26/25 10/29/25 Rx solution congestion #100 mL cholecalciferol (vitamin D3) 50 50 mcg PO QPM #90 caps 03/26/25 10/29/25 Rx mcg (2,000 unit) capsule sodium chloride 7 % for 1 inh inhalation BID #240 mL 03/26/25 10/29/25 Rx nebulization FreeStyle Rosalie 2 Sensor (flash #6 ea 05/06/25 10/29/25 Rx glucose sensor) desmopressin 0.2 mg tablet 0.4 mg (2 x 0.2 mg) PO BID #120 05/16/25 10/29/25 Rx tabs naloxone 4 mg/actuation nasal 1 spray intranasal ONCE PRN opioid 05/18/25 10/29/25 Rx spray (Narcan) overdose #2 ea somatropin 5 mg/1.5 mL (3.3 mg/mL) 3 mg subcut QPM 05/29/25 10/29/25 History subcutaneous pen injector (Norditropin FlexPro) FreeStyle Rosalie 2 Plus Sensor #6 ea 06/04/25 10/29/25 Rx (blood-glucose sensor) hydrocortisone 10 mg tablet 10 mg PO QPM 06/13/25 10/29/25 History dutasteride 0.5 mg capsule 0.5 mg PO QAM #90 caps 06/19/25 10/29/25 Rx albuterol sulfate 90 mcg/actuation 2 inh inhalation Q6H PRN shortness 07/01/25 10/29/25 Rx aerosol inhaler (Ventolin HFA) of breath or wheezing #6.7 grams hydrocortisone 10 mg tablet 20 mg PO QAM 07/02/25 10/29/25 History clopidogrel 75 mg tablet 75 mg PO QPM 08/06/25 10/29/25 History famotidine 20 mg tablet 20 mg PO QAM 08/06/25 10/29/25 History lacosamide 150 mg tablet 150 mg PO BID 08/06/25 10/29/25 History levetiracetam 1,000 mg tablet 250 mg PO BID 08/06/25 10/29/25 History levothyroxine 200 mcg tablet 200 mcg PO QAM 08/06/25 10/29/25 History lisinopril 10 mg tablet 20 mg PO QPM 08/06/25 10/29/25 History ramelteon 8 mg tablet 8 mg PO QPM 08/06/25 10/29/25 History propranolol 120 mg capsule,24 120 mg PO HS #90 caps 08/12/25 10/29/25 Rx hr,extended release docusate sodium 100 mg capsule 100 mg PO BID 30 days #60 caps 08/13/25 10/29/25 Rx ascorbic acid (vitamin C) 250 mg 250 mg PO BID #60 tabs 08/30/25 10/29/25 Rx tablet ondansetron 8 mg disintegrating 8 mg PO Q8H PRN nausea and 09/10/25 10/29/25 Rx tablet vomiting #90 tabs divalproex 500 mg tablet,extended 1,000 mg PO QAM 09/11/25 10/29/25 History release 24 hr insulin glargine 100 unit/mL (3 12 unit subcut HS 09/14/25 10/29/25 History mL) subcutaneous pen (Lantus Solostar U-100 Insulin) ferrous sulfate 325 mg (65 mg 325 mg PO BID #90 tabs 10/02/25 10/29/25 Rx iron) tablet arformoterol 15 mcg/2 mL solution 2 ml inhalation BID PRN Shortness 10/29/25 10/29/25 History for nebulization (Brovana) Of Breath Or Wheezing budesonide 0.5 mg/2 mL suspension 0.5 mg inhalation AMHS 10/29/25 10/29/25 History for nebulization Allergies Allergy/AdvReac Type Severity Reaction Status Date / Time clindamycin Allergy Intermediate SWELLING Verified 10/29/25 20:03 Iodinated Contrast Media Allergy Intermediate face/eye Verified 10/29/25 20:03 swelling Quinolones Allergy Intermediate HIVES Verified 10/29/25 20:03 metformin AdvReac Unknown lactic Verified 10/29/25 20:03 acidosis Past Med/Surg History Problem List (Updated 10/30/25 @ 22:20 by Prince Jason MD) Non-ST elevation MT (NSTEMI) (Acute) Hypopituitarism (Acute) Rhabdomyolysis (Acute) Elevated troponin Rhabdomyolysis Adjustment disorder with mixed anxiety and depressed mood Palliative care by specialist QUENTIN (acute kidney injury) (Acute) Hypomagnesemia (Acute) Ambulatory dysfunction (Acute) Nonadherence to medication PTSD (post-traumatic stress disorder) Diabetes insipidus Chronic anemia (Acute) Vision loss, left eye Entered 05/2025 Hypopituitarism Psychogenic nonepileptic seizure Asthma Presbyopia of both eyes Epiretinal membrane (ERM) of left eye Ocular hypertension Demyelinating disease Esophageal dysphagia 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 tested positive in Aug 2023 [place] Current use of proton pump inhibitor Chronic migraine without aura or status migrainosus Ulcerative colitis Mixed hyperlipidemia Lumbar stenosis with neurogenic claudication Essential tremor Mitral regurgitation Anti-cyclic citrullinated peptide antibody positive Internal hemorrhoids Prostate mass benign Medical History Lethargy Chronic respiratory failure with hypoxia Acute hypokalemia Hypomagnesemia Atrial tachycardia Calcium nephrolithiasis Seizure disorder Intractable back pain Bilateral nephrolithiasis Compartment syndrome of lower extremity Venous stasis ulcers Chronic venous insufficiency Secondary cataract of left eye with vision obscured Combined form of senile cataract of right eye CHF (congestive heart failure) COPD (chronic obstructive pulmonary disease) Arachnoid cyst of posterior cranial fossa BPH with obstruction/lower urinary tract symptoms Right leg pain Blood loss anemia (06/2025) Therapeutic opioid-induced constipation (OIC) Bipolar 1 disorder Back pain at L4-L5 level Hypokalemia Frequent falls Generalized weakness Generalized pain Hypomagnesemia Hyperphosphatemia CHI (closed head injury) Kidney stones History of pneumonia (03/2025) Ocular hypertension Ulcerative colitis Mixed hyperlipidemia Lumbar stenosis with neurogenic claudication Idiopathic polyneuropathy Essential tremor Demyelinating disease Compartment syndrome of lower extremity (02/2025) Chronic venous insufficiency Depression with anxiety On home O2 History of recent hospitalization Urinary tract obstruction due to kidney stone LPRD (laryngopharyngeal reflux disease) Uncontrolled type 2 diabetes mellitus with hyperglycemia Hypothyroidism Non-occlusive coronary artery disease Chronic narcotic dependence Restrictive lung disease Obstructive sleep apnea Pituitary hypogonadism Secondary adrenal insufficiency Transient alteration of awareness Migraine Growth hormone deficiency Closed fracture of right fibula with malunion Shortness of breath Obesity CKD (chronic kidney disease), stage III Atrial fibrillation (02/15/24) Panhypopituitarism Syncope and collapse Recurrent seizures Pituitary diabetes insipidus Spondylolysis, lumbar region Right lumbar radiculopathy HTN (hypertension) Adrenal insufficiency Hyperactive gag reflex Epidural lipomatosis Chronic left sacroiliac pain Presence of cardiac device Cerebral concussion Orthostatic hypotension Sensorineural hearing loss of both ears Rectal bleeding History of COVID-19 Mitral valve regurgitation Vertigo Lower extremity edema Bilateral hand pain Pituitary neoplasm Bladder mass Surgical History Hx of flexible sigmoidoscopy (07/03/25) History of open reduction and internal fixation (ORIF) procedure (2009) Presence of Watchman left atrial appendage closure device (02/2024) History of arthroplasty of left knee (2014) S/P TURP (status post transurethral resection of prostate) History of lumbar fusion (07/2022) History of cardiac cath (07/2021) S/P epidural steroid injection History of lithotripsy History of bladder surgery History of prostate surgery (2016) History of colonoscopy History of esophagogastroduodenoscopy (EGD) History of tooth extraction History of wisdom tooth extraction History of brain surgery (2017) Family History Grandmother (Paternal) Family history of diabetes mellitus Aunt Family history of diabetes mellitus Uncle Family history of diabetes mellitus Father Prostate cancer Heart disease Osteoarthritis Mother Cardiac disorder Grandmother (Maternal) Myocardial infarction Other Asthma Cancer Hypertension No family history of adverse response to anesthesia No family history of bleeding disorder Stroke Denies family history of Ovarian cancer Breast cancer Colorectal cancer Social History Smoking Status: Never smoker Tobacco Type: Smokeless Tobacco (Dip or Chew) Second Hand Exposure: No; Do You Dip or Chew Tobacco: No; Hx Alcohol Use: No Hx Substance Use: No Preferred Language: Indian Communication Ability: Effective Communication Ability Comment: Unable to obtain due to patient condition. Visual Impairment: Limited Hearing Ability: Normal Skimmer Required: No Beliefs That Will Affect Care: None marital status: Single Current Living Situation: Spouse and Family Current Living Situation Comment: and daughter in [place] current occupational status: disabled How many Children do You have: 3 How many Children do You have Comment: able to assist with care if needed Feels Safe at Home: Yes Childhood Exposure to Second-Hand Smoke: Yes (parents smoked) Diet: regular Diet Comment: going to be starting low carb/low calorie diet. caffeine: No (1/2 20 oz bottle of mountain dew. ) during the past year weight has: increased > 10 lbs Physical Activity Frequency: Daily Physical Activity Frequency Comment: walking, 1.5 miles daily. Seatbelt Use: always Do you think of yourself as: straight/heterosexual Gender Identity: Male Assistive Devices: Walker Physical Exam Vital Signs Vital Signs - 24 hr 10/29/25 17:15 10/29/25 18:01 Temperature 36.6 C Temperature Source Temporal Artery Scan Pulse Rate 129 H 117 H Respiratory Rate 18 Blood Pressure 136/84 Blood Pressure Mean 101 Pulse Oximetry 94 Oxygen Delivery Method Room Air Sepsis Recent Fever Within 48 Hours No Sepsis New/Unexplained Change in Mental Status N/A Sepsis Action Taken by Nursing No Action Required See below Course Administered Medications Acetaminophen (Acetaminophen 500 Mg Tab) 1,000 mg PO Q8H PRN PRN Reason: Pain or Fever Stop: 11/29/25 08:05 Last Admin: 10/30/25 08:31 Dose: 1,000 mg Documented By: ANAMARIA Ascorbic Acid (Ascorbic Acid 500 Mg Tab) 250 mg PO BID [facility] Stop: 11/29/25 08:59 Last Admin: 10/30/25 20:54 Dose: 250 mg Documented By: Admin: 10/30/25 08:33 Dose: 250 mg Documented By: ANAMARIA Budesonide (Budesonide 0.5 Mg/2 Ml Vial (Pulmicort)) 0.5 mg INH BIDR [facility] Stop: 11/29/25 06:59 Last Admin: 10/30/25 19:38 Dose: 0.5 mg Documented By: Admin: 10/30/25 06:54 Dose: 0.5 mg Documented By: KOKO Clopidogrel Bisulfate (Clopidogrel Bisulfate 75 Mg Tab) 75 mg PO QPM [facility] Stop: 11/28/25 22:01 Last Admin: 10/30/25 20:56 Dose: 75 mg Documented By: Admin: 10/29/25 23:05 Dose: Not Given Documented By: IOANA Desmopressin Acetate (Desmopressin Acetate 0.1 Mg Tab) 0.4 mg PO BID [facility] Stop: 11/28/25 22:01 Last Admin: 10/30/25 20:55 Dose: 0.4 mg Documented By: Admin: 10/30/25 08:32 Dose: 0.4 mg Documented By: Admin: 10/29/25 23:05 Dose: Not Given Documented By: IOANA Divalproex Sodium (Divalproex Extended Release 500 Mg Tab) 1,000 mg PO QAM [facility] Stop: 11/29/25 08:59 Last Admin: 10/30/25 08:32 Dose: 1,000 mg Documented By: ANAMARIA Docusate Sodium (Docusate Sodium 100 Mg Cap) 100 mg PO BID [facility] Stop: 11/28/25 22:01 Last Admin: 10/30/25 20:52 Dose: Not Given Documented By: Admin: 10/30/25 08:33 Dose: 100 mg Documented By: Admin: 10/29/25 23:05 Dose: Not Given Documented By: IOANA Famotidine (Famotidine 20 Mg Tab) 20 mg PO QAM [facility] Stop: 11/29/25 08:59 Last Admin: 10/30/25 08:33 Dose: 20 mg Documented By: ANAMARIA Ferrous Sulfate (Ferrous Sulfate 325 Mg Tab) 325 mg PO BID17 [facility] Stop: 11/29/25 08:59 Last Admin: 10/30/25 17:29 Dose: 325 mg Documented By: Admin: 10/30/25 08:33 Dose: 325 mg Documented By: ANAMARIA Finasteride (Finasteride 5 Mg Tab) 5 mg PO QAM [facility] Stop: 11/29/25 08:59 Last Admin: 10/30/25 08:33 Dose: 5 mg Documented By: ANAMARIA Pantoprazole Sodium (Protonix) 40 mg in 10 mls @ 5 mls/min IV BID [facility] Stop: 11/28/25 22:01 Last Admin: 10/30/25 21:32 Dose: 5 mls/min Documented By: Admin: 10/30/25 08:32 Dose: 5 mls/min Documented By: Admin: 10/29/25 23:06 Dose: Not Given Documented By: IOANA Hydrocortisone Sodium (Succinate 50 mg/ Syringe) 1 mls @ 4 mls/min IV Q8H [facility] Stop: 11/29/25 15:59 Last Admin: 10/30/25 17:30 Dose: 4 mls/min Documented By: VICKIE Insulin Aspart (Insulin Aspart Per Unit Charge) 0 units SC ACHS [facility] Stop: 11/29/25 07:29 Last Admin: 10/30/25 20:52 Dose: 1 units Documented By: TAVIA Co-signed By: SUSAN Admin: 10/30/25 17:28 Dose: 4 units Documented By: VICKIE Co-signed By: SALOMÓN Admin: 10/30/25 12:19 Dose: 3 units Documented By: ANAMARIA Co-signed By: Admin: 10/30/25 09:04 Dose: 1 units Documented By: ANAMARIA Co-signed By: Insulin Glargine (Lantus Per Unit Charge) 12 units SC HS [facility] Stop: 11/28/25 22:14 Last Admin: 10/30/25 20:52 Dose: 12 units Documented By: TAVIA Co-signed By: SUSAN Admin: 10/29/25 23:06 Dose: Not Given Documented By: IOANA Lacosamide (Lacosamide 50 Mg Tablet) 150 mg PO BID [facility] Stop: 11/28/25 22:01 Last Admin: 10/30/25 21:07 Dose: 150 mg Documented By: Admin: 10/30/25 08:33 Dose: 150 mg Documented By: Admin: 10/29/25 23:05 Dose: Not Given Documented By: IOANA Levetiracetam (Levetiracetam 250 Mg Tab) 250 mg PO BID [facility] Stop: 11/28/25 22:01 Last Admin: 10/30/25 20:56 Dose: 250 mg Documented By: Admin: 10/30/25 08:33 Dose: 250 mg Documented By: Admin: 10/29/25 23:06 Dose: Not Given Documented By: IOANA Levothyroxine Sodium (Levothyroxine Sodium 200 Mcg Tablet) 200 mcg PO DAILYBB [facility] Stop: 11/29/25 06:29 Last Admin: 10/30/25 07:44 Dose: 200 mcg Documented By: ANAMARIA Lisinopril (Lisinopril 20 Mg Tab) 20 mg PO QPM [facility] Stop: 11/28/25 22:01 Last Admin: 10/30/25 20:56 Dose: 20 mg Documented By: Admin: 10/29/25 23:06 Dose: Not Given Documented By: IOANA Magnesium Oxide (Magnesium Oxide 400 Mg Tab) 400 mg PO HS [facility] Stop: 11/28/25 22:01 Last Admin: 10/30/25 20:56 Dose: 400 mg Documented By: Admin: 10/29/25 23:06 Dose: Not Given Documented By: IOANA Miscellaneous ((Ramelteon 8 Mg Tablet)~Order Awaiting Action) 1 each N/A QS [facility] Stop: 11/28/25 22:14 Last Admin: 10/30/25 17:29 Dose: Not Given Documented By: Admin: 10/30/25 08:34 Dose: Not Given Documented By: Admin: 10/30/25 00:54 Dose: Not Given Documented By: Admin: 10/29/25 23:06 Dose: Not Given Documented By: IOANA Miscellaneous ((Somatropin [Norditropin Flexpro] 5 Mg/1.5 Ml (3.3 Mg/Ml) Pen Inj~Order Awaiting Action) 1 each N/A QS [facility] Stop: 11/28/25 22:29 Last Admin: 10/30/25 17:29 Dose: Not Given Documented By: Admin: 10/30/25 08:34 Dose: Not Given Documented By: Admin: 10/29/25 23:06 Dose: Not Given Documented By: IOANA Oxycodone HCl (Oxycodone Hcl Ir 5 Mg Tab (Immediate Release)) 5 mg PO Q6 PRN PRN Reason: Pain Stop: 11/13/25 17:04 Last Admin: 10/30/25 17:28 Dose: 5 mg Documented By: VICKIE Propranolol HCl (Propranolol Hcl 60 Mg [place]) 120 mg PO HS [facility] Stop: 11/28/25 22:01 Last Admin: 10/30/25 20:53 Dose: 120 mg Documented By: Admin: 10/29/25 23:06 Dose: Not Given Documented By: LCD Sodium Chloride (Sodium Chlor 7% 4 Ml Neb) 4 ml INH BIDR [facility] Stop: 11/29/25 06:59 Last Admin: 10/30/25 19:38 Dose: 4 ml Documented By: Admin: 10/30/25 06:54 Dose: 4 ml Documented By: KOKO Vitamin B Complex (Vitamin B Complex Tab) 1 tab PO QAM [facility] Stop: 11/29/25 08:59 Last Admin: 10/30/25 08:33 Dose: 1 tab Documented By: CAP Vitamin D (Cholecalciferol 25 Mcg (1000 Units) Tab) 50 mcg PO QPM [facility] Stop: 11/29/25 20:59 Last Admin: 10/30/25 20:55 Dose: 50 mcg Documented By: MLS Discontinued Medications Heparin Sodium (Porcine) (Heparin Sod (Porcine) 1000 Unit/Ml) 1 units IV NOW ONE Stop: 10/29/25 19:47 Last Admin: 10/29/25 20:27 Dose: Not Given Documented By: DERECK Heparin Sodium (Porcine) (Heparin Sod (Porcine) 1000 Unit/Ml) 4,500 units IV NOW ONE; Protocol Stop: 10/30/25 05:52 Last Admin: 10/30/25 05:59 Dose: 4,500 units Documented By: ALPA Co-signed By: ERICA Heparin Sodium/Dextrose (Heparin Iv Adult Wt-Based Standard W/ Initial Bolus Protocol) 1 each IV NOW STA; Protocol Stop: 10/29/25 19:32 Last Admin: 10/29/25 19:52 Dose: Not Given Documented By: DERECK Heparin Sodium/Dextrose (Heparin Iv Adult Wt-Based Low-Dose *No* Initial Bolus Protocol) 1 each IV ONE STA; Protocol Stop: 10/29/25 20:27 Last Admin: 10/29/25 20:40 Dose: Not Given Documented By: DERECK Hydrocortisone Sodium Succinate (Hydrocortisone Sod Succinate 100 Mg/2 Ml Vial) 100 mg IV NOW STA Stop: 10/29/25 18:22 Last Admin: 10/29/25 18:59 Dose: 100 mg Documented By: RACHEAL Sodium Chloride (Nss) 1,000 mls @ 999 mls/hr IV .Q1H1M [facility] Stop: 10/29/25 18:45 Last Infusion: 10/29/25 19:54 Dose: Infused Documented By: Admin: 10/29/25 18:53 Dose: 999 mls/hr Documented By: RACHEAL Heparin Sodium/Dextrose (Heparin 72689 Unit/500 Ml D5w) 25,000 units in 500 mls @ 32 mls/hr IV .[id number] [facility]; Protocol Stop: 11/28/25 19:59 Last Admin: 10/29/25 20:27 Dose: Not Given Documented By: DERECK Lactated Ringer's (Lr) 1,000 mls @ 999 mls/hr IV .Q1H1M ONE Stop: 10/29/25 21:23 Last Infusion: 10/30/25 00:42 Dose: Infused Documented By: Admin: 10/29/25 22:23 Dose: 999 mls/hr Documented By: IOANA Heparin Sodium/Dextrose (Heparin 37450 Unit/500 Ml D5w) 25,000 units in 500 mls @ 25 mls/hr IV .Q20H [facility]; Protocol Stop: 11/28/25 20:44 Last Titration: 10/30/25 15:04 Dose: Infused Documented By: VICKIE Co-signed By: kevon Titration: 10/30/25 05:59 Dose: 1,250 units/hr, 25 mls/hr Documented By: ALPA Co-signed By: ERICA Admin: 10/29/25 20:48 Dose: 1,000 units/hr, 20 mls/hr Documented By: RACHEAL Co-signed By: DERECK Magnesium Sulfate/Dextrose (Magnesium Sulfate / D5w) 1 gm in 100 mls @ 50 mls/hr IV ONE ONE Stop: 10/29/25 22:51 Last Infusion: 10/30/25 00:42 Dose: Infused Documented By: Admin: 10/29/25 22:28 Dose: 50 mls/hr Documented By: IOANA Lactated Ringer's (Lr) 1,000 mls @ 125 mls/hr IV .Q8H [facility] Stop: 10/30/25 13:14 Last Infusion: 10/30/25 15:31 Dose: Infused Documented By: Admin: 10/30/25 06:36 Dose: 125 mls/hr Documented By: Infusion: 10/30/25 06:36 Dose: Infused Documented By: Admin: 10/29/25 22:33 Dose: 125 mls/hr Documented By: IOANA Hydrocortisone Sodium (Succinate 100 mg/ Syringe) 2 mls @ 4 mls/min IV Q8H [facility] Stop: 11/29/25 07:59 Last Admin: 10/30/25 08:34 Dose: 4 mls/min Documented By: ANAMARIA Levetiracetam (Levetiracetam 500 Mg/5 Ml Vial) 500 mg IV NOW STA Stop: 10/30/25 00:09 Last Admin: 10/30/25 00:53 Dose: 500 mg Documented By: ALPA Medical Decision Making Differential Diagnosis DDx includes but not limited to: Rhabdomyolysis, viral URI, tickborne illness, myositis, sepsis, metabolic abnormality, hypopituitarism, NSTEMI, PE Medical Records Attestation: I reviewed the patient's medical records. Home Medications Current Medication List: was personally reviewed by me Laboratory Data Attestation: I reviewed the patient's lab results. 10/30/25 04:37 10/30/25 04:37 Lab Results 10/29/25 10/29/25 10/29/25 Range/Units 17:55 18:09 18:19 WBC 12.40 H (4.8-10.8) K/ul RBC 4.77 (4.70-6.10) M/uL Hgb 14.6 (14.0-18.0) g/dL Hct 42.6 (42.0-52.0) % MCV 89.3 (80.0-100.0) fL MCH 30.6 (25.0-34.0) pg MCHC 34.3 (32.0-36.0) g/dL RDW Std Deviation 46.7 H (36.4-46.3) fL RDW Coeff of Yanira 14.2 (11.5-14.5) % Plt Count 174 (130-400) K/uL MPV 8.8 L (9.4-12.4) fL Immature Gran % (Auto) 0.6 % Neut % (Auto) 64.2 % Lymph % (Auto) 23.9 % [place] % (Auto) 10.0 % Eos % (Auto) 1.0 % Baso % (Auto) 0.3 % Neut # (Auto) 7.95 H (1.40-6.50) K/uL Lymph # (Auto) 2.96 (1.20-3.40) K/uL [place] # (Auto) 1.24 H (0.11-0.59) K/uL Eos # (Auto) 0.13 (0.00-0.50) K/uL Baso # (Auto) 0.04 (0.00-0.20) K/uL Immature Gran # (Auto) 0.08 (0.01-0.20) K/uL ESR 47 H (0-20) mm/hr PT 11.8 (9.0-12.0) Seconds INR 1.1 (0.9-1.1) Sodium 136 (136-145) mmol/L Potassium 3.6 (3.5-5.1) mmol/L Chloride 96 L (98-107) mmol/L Carbon Dioxide 28 (21-32) mmol/L Anion Gap 12 H (3-11) BUN 9 (6-23) mg/dl Creatinine 1.17 (0.6-1.4) mg/dl Est Cr Clr Drug Dosing 87.3 ml/min eGFR 72.71 BUN/Creatinine Ratio 7.7 L (10-20) Glucose 110 H (70-99(Fasting)) mg/dl POC Glucose 108 H (70-99) mg/dl Lactate 1.6 (0.4-2.0) mmol/L Calcium 9.8 (8.6-10.3) mg/dl Magnesium 1.7 (1.7-2.4) mg/dl Total Bilirubin 2.1 H (0.2-1.0) mg/dl AST 38 (13-39) U/L ALT 29 (7-52) U/L Alkaline Phosphatase 62 (34-104) U/L Total Creatine Kinase 1944 H (30-223) U/L Troponin I High Sens 359.3 H* (0-20) pg/ml C-Reactive Protein 24.00 H (0-0.5) mg/dl Total Protein 7.4 (6.0-8.3) gm/dl Albumin 4.5 (3.4-5.0) gm/dl Globulin 2.9 (2.5-4.0) gm/dl Albumin/Globulin Ratio 1.6 (0.9-2) TSH 0.045 L (0.300-4.500) uIu/ml Free T4 0.93 (0.61-1.60) ng/dl Free T3 2.92 (2.3-4.2) pg/ml Urine Color Urine Appearance (Clear) Urine pH (4.5-7.5) Ur Specific [place] (1.000-1.030) Urine Protein (Negative) Urine Glucose (UA) (Negative) Urine Ketones (Negative) Urine Blood (Negative) Urine Nitrite (Negative) Urine Bilirubin (Negative) Urine Urobilinogen (Negative) Ur Leukocyte Esterase (Negative) Urine Comment Urine Opiates Screen (Neg) Ur Methadone, Qual (Neg) Urine Fentanyl Screen (Neg) Urine Barbiturates (Neg) Ur Phencyclidine (PCP) (Neg) U Amphetamin/Meth Scrn (Neg) MDMA (Ecstasy) Screen (Neg) U Benzodiazepines Scrn (Neg) Ur Cocaine Metabolite (Neg) U Marijuana (THC) Screen (Neg) Adenovirus (PCR) (NotDetected) Anaplasma Smear See Comment Babesia Smear See Comment B. pertussis DNA (PCR) (NotDetected) B.parapertussis DNA PCR (NotDetected) Lyme Disease Screen Negative (Negative) C. pneumoniae DNA (PCR) (NotDetected) Coronavirus OC43 (PCR) (NotDetected) Coronavirus HKU1 (PCR) (NotDetected) Coronavirus 229E (PCR) (NotDetected) SARS-CoV-2 (PCR) (NotDetected) Coronavirus NL63 (PCR) (NotDetected) Human Metapneumovir PCR (NotDetected) Influenza Type A (PCR) (NotDetected) Influenza Type B (PCR) (NotDetected) M. pneumoniae (PCR) (NotDetected) Parainfluenza 1 (PCR) (NotDetected) Parainfluenza 2 (PCR) (NotDetected) Parainfluenza 3 (PCR) (NotDetected) Parainfluenza 4 (PCR) (NotDetected) RSV (PCR) (NotDetected) Entero/Rhino (PCR) (NotDetected) SARS-CoV-2, RNA, NAAT NEGATIVE (NEGATIVE) 10/29/25 10/29/25 10/29/25 Range/Units 18:40 19:50 20:36 WBC (4.8-10.8) K/ul RBC (4.70-6.10) M/uL Hgb (14.0-18.0) g/dL Hct (42.0-52.0) % MCV (80.0-100.0) fL MCH (25.0-34.0) pg MCHC (32.0-36.0) g/dL RDW Std Deviation (36.4-46.3) fL RDW Coeff of Yanira (11.5-14.5) % Plt Count (130-400) K/uL MPV (9.4-12.4) fL Immature Gran % (Auto) % Neut % (Auto) % Lymph % (Auto) % [place] % (Auto) % Eos % (Auto) % Baso % (Auto) % Neut # (Auto) (1.40-6.50) K/uL Lymph # (Auto) (1.20-3.40) K/uL [place] # (Auto) (0.11-0.59) K/uL Eos # (Auto) (0.00-0.50) K/uL Baso # (Auto) (0.00-0.20) K/uL Immature Gran # (Auto) (0.01-0.20) K/uL ESR (0-20) mm/hr PT (9.0-12.0) Seconds INR (0.9-1.1) Sodium (136-145) mmol/L Potassium (3.5-5.1) mmol/L Chloride (98-107) mmol/L Carbon Dioxide (21-32) mmol/L Anion Gap (3-11) BUN (6-23) mg/dl Creatinine (0.6-1.4) mg/dl Est Cr Clr Drug Dosing ml/min eGFR BUN/Creatinine Ratio (10-20) Glucose (70-99(Fasting)) mg/dl POC Glucose (70-99) mg/dl Lactate (0.4-2.0) mmol/L Calcium (8.6-10.3) mg/dl Magnesium (1.7-2.4) mg/dl Total Bilirubin (0.2-1.0) mg/dl AST (13-39) U/L ALT (7-52) U/L Alkaline Phosphatase (34-104) U/L Total Creatine Kinase (30-223) U/L Troponin I High Sens 291.3 H* (0-20) pg/ml C-Reactive Protein (0-0.5) mg/dl Total Protein (6.0-8.3) gm/dl Albumin (3.4-5.0) gm/dl Globulin (2.5-4.0) gm/dl Albumin/Globulin Ratio (0.9-2) TSH (0.300-4.500) uIu/ml Free T4 (0.61-1.60) ng/dl Free T3 (2.3-4.2) pg/ml Urine Color Yellow Urine Appearance Clear (Clear) Urine pH 6.5 (4.5-7.5) Ur Specific [place] 1.007 (1.000-1.030) Urine Protein Negative (Negative) Urine Glucose (UA) Negative (Negative) Urine Ketones Trace H (Negative) Urine Blood Negative (Negative) Urine Nitrite Negative (Negative) Urine Bilirubin Negative (Negative) Urine Urobilinogen Negative (Negative) Ur Leukocyte Esterase Negative (Negative) Urine Comment Urine Opiates Screen Neg (Neg) Ur Methadone, Qual Neg (Neg) Urine Fentanyl Screen Neg (Neg) Urine Barbiturates Neg (Neg) Ur Phencyclidine (PCP) Neg (Neg) U Amphetamin/Meth Scrn Neg (Neg) MDMA (Ecstasy) Screen Neg (Neg) U Benzodiazepines Scrn Neg (Neg) Ur Cocaine Metabolite Neg (Neg) U Marijuana (THC) Screen Neg (Neg) Adenovirus (PCR) Not Detected (NotDetected) Anaplasma Smear Babesia Smear B. pertussis DNA (PCR) Not Detected (NotDetected) B.parapertussis DNA PCR Not Detected (NotDetected) Lyme Disease Screen (Negative) C. pneumoniae DNA (PCR) Not Detected (NotDetected) Coronavirus OC43 (PCR) Not Detected (NotDetected) Coronavirus HKU1 (PCR) Not Detected (NotDetected) Coronavirus 229E (PCR) Not Detected (NotDetected) SARS-CoV-2 (PCR) Not Detected (NotDetected) Coronavirus NL63 (PCR) Not Detected (NotDetected) Human Metapneumovir PCR Not Detected (NotDetected) Influenza Type A (PCR) Not Detected (NotDetected) Influenza Type B (PCR) Not Detected (NotDetected) M. pneumoniae (PCR) Not Detected (NotDetected) Parainfluenza 1 (PCR) Not Detected (NotDetected) Parainfluenza 2 (PCR) Not Detected (NotDetected) Parainfluenza 3 (PCR) Not Detected (NotDetected) Parainfluenza 4 (PCR) Not Detected (NotDetected) RSV (PCR) Not Detected (NotDetected) Entero/Rhino (PCR) Not Detected (NotDetected) SARS-CoV-2, RNA, NAAT (NEGATIVE) ECG Data Attestation: I personally reviewed and interpreted this ECG as follows: Indication: + weakness Rate (beats per minute): 121 Rhythm: + sinus rhythm ECG Intervals/blocks: + Normal QRS, + Normal QT and + Normal MT ECG Lucas: + Left axis deviation ECG ST segments: + Normal ST segments Comparison ECG Date: from (09/28/2025) Change: the following changes noted Additional Comments: Ventricular rate increased, LAD new MDM Narrative Patient is a 55-year-old male with significant medical history as seen above who presents for diffuse body aches and confusion since yesterday. He is awake and alert on my examination. He is able to follow commands appropriately. Afebrile here in the emergency room. Lab work was obtained which showed a mild leukocytosis which is nonspecific and may be related to infection versus inflammatory process versus chronic steroid use. No tick bites or rash concerning for tickborne illness however tick panel was sent and is pending. Remaining lab work notable for elevated CK consistent with mild rhabdomyolysis. Patient was given IV fluids. Elevated troponin and inflammatory markers noted. No EKG findings concerning for ischemia. No anginal symptoms reported. Elevated troponin likely secondary to demand process however cannot rule out underlying ACS or PE however patient does have a severe contrast allergy and would recommend either pretreatment or VQ scan for further workup. Patient was started on heparin for management of NSTEMI versus possible underlying PE. He remained hemodynamically stable here in the ED. No indication for antibiotics at this time. Stress dose steroids were given in the setting of his presentation and history of hypopituitarism. Stable for admission to hospitalist service at this time. Impression & Plan Rhabdomyolysis, Hypopituitarism, Non-ST elevation MT (NSTEMI) Discharge Plan Visit Data Chief Complaint: Confusion Stated Complaint: CONFUSION, PAIN ALL OVER ED Provider: Prince Jason Discharge Problem: Rhabdomyolysis, Hypopituitarism, Non-ST elevation MT (NSTEMI) Patient Disposition: Admitted As Inpatient Condition: Good Discharge Instructions Interventions: ED Discharge Assessment Last Done: 10/29/25 22:03
[2025-10-29 18:35] LABS: Hematocrit (blood only) 42.6 % (42.0-52.0); Hemoglobin 14.6 g/dL (14.0-18.0); Immature Granulocytes # (auto) 0.08 K/uL (0.01-0.20); Immature Granulocytes % (auto) 0.6 %; Mean Corpuscular Hemoglobin 30.6 pg (25.0-34.0); Mean Corpuscular Volume 89.3 fL (80.0-100.0); Platelet Count 174 K/uL (130-400); RDW Standard Deviation 46.7 fL (36.4-46.3); Red Blood Count 4.77 M/uL (4.70-6.10); White Blood Count 12.40 K/ul (4.8-10.8)
--- NOTE | 2025-10-29 18:43 | XRay Report ---
Chest radiograph, one view History: Chest pain Comparison: None Findings: Single AP view of the chest performed. No focal consolidation or pleural effusion. No pneumothorax. The cardiomediastinal silhouette is within normal limits. Normal pulmonary vascularity. No evidence for lymphadenopathy. Left chest wall loop recorder device. No visualized bony or soft tissue abnormality. Impression: Normal chest radiograph Electronically signed by Glynn Nguyen 10-29-2025 6:43 PM
[2025-10-29 18:53] LABS: Alanine Aminotransferase 29.0 U/L (7-52); Albumin Globulin Ratio 1.6 (0.9-2); Albumin Level 4.5 gm/dl (3.4-5.0); Alkaline Phosphatase 62.0 U/L (34-104); Anion Gap 12.0 (3-11); Bilirubin,Total 2.1 mg/dl (0.2-1.0); Blood Urea Nitrogen 9.0 mg/dl (6-23); Calcium 9.8 mg/dl (8.6-10.3); Carbon Dioxide 28.0 mmol/L (21-32); Chloride 96.0 mmol/L (98-107); Creatine Kinase 1944.0 U/L (30-223); Creatinine Clr Calc Pharmacy 87.3 ml/min; Globulin 2.9 gm/dl (2.5-4.0); Glucose 110.0 mg/dl (70-99(Fasting)); Magnesium 1.7 mg/dl (1.7-2.4); Potassium 3.6 mmol/L (3.5-5.1); Sodium 136.0 mmol/L (136-145); Total Protein 7.4 gm/dl (6.0-8.3)
[2025-10-29] MEDS: SODIUM CHLORIDE 0.9% 1,000 ML IV SCH (18:53)
[2025-10-29] MEDS: HYDROCORTISONE SOD SUCCINATE 100 MG/2 ML VIAL IV STA (18:59)
[2025-10-29 19:09] LABS: Thyroid Stimulating Hormone 0.045 uIu/ml (0.300-4.500)
[2025-10-29 19:50] LABS: T4 Free Thyroxine 0.93 ng/dl (0.61-1.60)
[2025-10-29 19:52] LABS: Chlamydia pneumoniae PCR Not Detected (NotDetected); Coronavirus 229E PCR Not Detected (NotDetected); Coronavirus CoV-2 (COVID19)PCR Not Detected (NotDetected); Coronavirus HKU1 PCR Not Detected (NotDetected); Coronavirus NL63 PCR Not Detected (NotDetected); Coronavirus OC43PCR Not Detected (NotDetected); Human Metapneumovirus PCR Not Detected (NotDetected); Parainfluenza Virus 1 PCR Not Detected (NotDetected); Parainfluenza Virus 2 PCR Not Detected (NotDetected); Parainfluenza Virus 3 PCR Not Detected (NotDetected); Parainfluenza Virus 4 PCR Not Detected (NotDetected); Respiratory Syncytial VirusPCR Not Detected (NotDetected); Rhinovirus/Enterovirus PCR Not Detected (NotDetected)
[2025-10-29] MEDS: Heparin IV Adult Wt-Based Standard w/ INITIAL Bolus Protocol IV STA (19:52)
[2025-10-29 19:58] LABS: Appearance Urine Clear (Clear); Glucose Urine UA Negative (Negative)
[2025-10-29] MEDS: HEPARIN 25000 UNIT/500 ML D5W 25,000 UNITS/500 ML BAG IV SCH ×2 (20:27→20:48)
[2025-10-29] MEDS: HEPARIN SOD (PORCINE) 1000 UNIT/ML IV ONE (20:27)
[2025-10-29] MEDS: Heparin IV Adult Wt-Based Low-Dose *NO* INITIAL Bolus Protocol IV STA (20:40)
[2025-10-29 20:44] LABS: INR 1.1 (0.9-1.1); Prothrombin Time 11.8 Seconds (9.0-12.0)
--- NOTE | 2025-10-29 21:09 | History & Physical Report ---
Date of Service October 29, 2025 Assessment & Plan (1) Rhabdomyolysis: (2) Elevated troponin: (3) Nonadherence to medication: (4) Bipolar disorder: Plan The patient is a 55-year-old male with a past medical history including adjustment disorder with mixed anxiety and depressed mood, acute kidney injury, ambulatory dysfunction, nonadherence to medication, PTSD, diabetes insipidus, diabetes mellitus, hypopituitarism, psychogenic nonepileptic seizure, asthma, demyelinating disease, GERD, chronic migraine, ulcerative colitis, essential tremor, and mitral regurgitation. He was accompanied by his , who helped with his HPI and ROS. He developed diffuse bodyaches that began yesterday, along with fatigue. He reports that he slept all day. He denies any recent travels or sick exposures. He reports he takes his medications as directed. He has no tick bites or other insect bites. He reports taking his oxycodone 5 mg every 6 hours as directed, however, urine drug screen added to the ED labs was negative. Workup in the emergency department with the following abnormalities: Magnesium 1.7, potassium 3.6 CK 1944, TSH 0.045, normal respiratory BioFire test. Urine drug screen was negative, including to the oxycodone which he is supposed be taking every 6 hours. EKG showed sinus tachycardia [address]-T changes and occasional PAC. Rhabdomyolysis/generalized muscle aches/acute kidney injury/whole body sweats- Patient's main complaint was that of generalized muscle aches that began relatively acutely over the past day or 2. CK on admission was 1944, creatinine 1.17. Status post 1 L normal saline bolus in the ED Give LR 1 L IV bolus now, then LR 125 mL/h x 2 L Unclear etiology for his symptoms Respiratory BioFire testing negative He reports he takes oxycodone 5 mg every 6 hours, however, and drug screen was negative. Concerns patient may be going through narcotic withdrawal While in the emergency department, he developed some increased sweats, but had maintained vital signs within his current range. We watched closely in the PCU, and may need to be started on AWSS protocol with Valium IV. Panhypopituitarism/diabetes insipidus- On chronic Cortef. Did receive hydrocortisone 100 mg IV in the ED, will continue every 8 hours Elevated troponin/tachycardia- Troponin was 359.3 on admission ED started heparin ip, which I changed to low-dose with no bolus, due to concerns regarding possible PE. Lower extremity venous Dopplers were added, and are negative for DVT. EKG showed sinus tachycardia 121, and heart rate did improve with IV fluid hydration. The patient will be admitted to telemetry for serial cardiac enzymes, serial EKG's, cardiac rhythm monitoring and a 2-D echocardiogram with Dopplers. Will continue heparin until results of further cardiac workup, with elevated troponin may just be secondary to his acute rhabdomyolysis process and myalgias. Most recent echocardiogram on 11/13 showed ejection fraction of 60-65% Bipolar disorder/seizure disorder- Will give Keppra 500 mg IV this evening, and then hopefully patient will be able to resume all his usual medications in the morning. Hypothyroidism- TSH is mildly suppressed at 0.045 with a normal free T4. Adding free T3. Will hold thyroid supplement in the event that pharmacologic hyperthyroidism may be contributing to muscle breakdown Diabetes mellitus- Glucose 110 on admission History of Present Illness Primary Care Provider: Larry Amaral MD The patient is a 55-year-old male with a past medical history including adjustment disorder with mixed anxiety and depressed mood, acute kidney injury, ambulatory dysfunction, nonadherence to medication, PTSD, diabetes insipidus, diabetes mellitus, hypopituitarism, psychogenic nonepileptic seizure, asthma, demyelinating disease, GERD, chronic migraine, ulcerative colitis, essential tremor, and mitral regurgitation. He was accompanied by his , who helped with his HPI and ROS. He developed diffuse bodyaches that began yesterday, along with fatigue. He reports that he slept all day. He denies any recent travels or sick exposures. He reports he takes his medications as directed. He has no tick bites or other insect bites. He reports taking his oxycodone 5 mg every 6 hours as directed, however, urine drug screen added to the ED labs was negative. Workup in the emergency department with the following abnormalities: Magnesium 1.7, potassium 3.6 CK 1944, TSH 0.045, normal respiratory BioFire test. Urine drug screen was negative, including to the oxycodone which he is supposed be taking every 6 hours. EKG showed sinus tachycardia [address]-T changes and occasional PAC. Allergies Allergy/AdvReac Type Severity Reaction Status Date / Time clindamycin Allergy Intermediate SWELLING Verified 10/29/25 20:03 Iodinated Contrast Media Allergy Intermediate face/eye Verified 10/29/25 20:03 swelling Quinolones Allergy Intermediate HIVES Verified 10/29/25 20:03 metformin AdvReac Unknown lactic Verified 10/29/25 20:03 acidosis Home Medications Medication Instructions Recorded Confirmed Type fluticasone propionate 50 1 spray intranasal HS PRN allergy 03/16/23 10/29/25 Rx mcg/actuation nasal symptoms #16 grams spray,suspension (Flonase Allergy Relief) FreeStyle Rosalie 2 Herman (flash #1 ea 05/13/23 10/29/25 Rx glucose scanning reader) blood sugar diagnostic (OneTouch #150 ea 11/22/23 10/29/25 Rx Verio test strips) blood-glucose meter (OneTouch #1 ea 11/22/23 10/29/25 Rx Verio Reflect Meter) lancets 33 gauge (OneTouch Delica #150 ea 11/22/23 10/29/25 Rx Plus Lancet) glucagon 3 mg/actuation nasal 3 mg intranasal DIRECTED PRN 04/06/24 10/29/25 History spray (Baqsimi) Severe Hypoglycemia ipratropium 0.5 mg-albuterol 3 mg 3 ml inhalation QID PRN wheezing 07/31/24 10/29/25 Rx (2.5 mg base)/3 mL nebulization #90 mL soln nebulizers (Compact Compressor #1 ea 07/31/24 10/29/25 Rx Nebulizer) vitamin B complex (Vitamins B 1 cap PO QAM #30 caps 10/26/24 10/29/25 Rx Complex capsule) Oxygen Home 01/30/25 10/29/25 History magnesium oxide 400 mg (241.3 mg 400 mg PO HS 03/01/25 10/29/25 History magnesium) tablet acetylcysteine 200 mg/mL (20 %) 2 ml inhalation BID PRN Chest 03/26/25 10/29/25 Rx solution congestion #100 mL cholecalciferol (vitamin D3) 50 50 mcg PO QPM #90 caps 03/26/25 10/29/25 Rx mcg (2,000 unit) capsule sodium chloride 7 % for 1 inh inhalation BID #240 mL 03/26/25 10/29/25 Rx nebulization FreeStyle Rosalie 2 Sensor (flash #6 ea 05/06/25 10/29/25 Rx glucose sensor) desmopressin 0.2 mg tablet 0.4 mg (2 x 0.2 mg) PO BID #120 05/16/25 10/29/25 Rx tabs naloxone 4 mg/actuation nasal 1 spray intranasal ONCE PRN opioid 05/18/25 10/29/25 Rx spray (Narcan) overdose #2 ea somatropin 5 mg/1.5 mL (3.3 mg/mL) 3 mg subcut QPM 05/29/25 10/29/25 History subcutaneous pen injector (Norditropin FlexPro) FreeStyle Rosalie 2 Plus Sensor #6 ea 06/04/25 10/29/25 Rx (blood-glucose sensor) hydrocortisone 10 mg tablet 10 mg PO QPM 06/13/25 10/29/25 History dutasteride 0.5 mg capsule 0.5 mg PO QAM #90 caps 06/19/25 10/29/25 Rx albuterol sulfate 90 mcg/actuation 2 inh inhalation Q6H PRN shortness 07/01/25 10/29/25 Rx aerosol inhaler (Ventolin HFA) of breath or wheezing #6.7 grams hydrocortisone 10 mg tablet 20 mg PO QAM 07/02/25 10/29/25 History clopidogrel 75 mg tablet 75 mg PO QPM 08/06/25 10/29/25 History famotidine 20 mg tablet 20 mg PO QAM 08/06/25 10/29/25 History lacosamide 150 mg tablet 150 mg PO BID 08/06/25 10/29/25 History levetiracetam 1,000 mg tablet 250 mg PO BID 08/06/25 10/29/25 History levothyroxine 200 mcg tablet 200 mcg PO QAM 08/06/25 10/29/25 History lisinopril 10 mg tablet 20 mg PO QPM 08/06/25 10/29/25 History ramelteon 8 mg tablet 8 mg PO QPM 08/06/25 10/29/25 History propranolol 120 mg capsule,24 120 mg PO HS #90 caps 08/12/25 10/29/25 Rx hr,extended release docusate sodium 100 mg capsule 100 mg PO BID 30 days #60 caps 08/13/25 10/29/25 Rx ascorbic acid (vitamin C) 250 mg 250 mg PO BID #60 tabs 08/30/25 10/29/25 Rx tablet ondansetron 8 mg disintegrating 8 mg PO Q8H PRN nausea and 09/10/25 10/29/25 Rx tablet vomiting #90 tabs divalproex 500 mg tablet,extended 1,000 mg PO QAM 09/11/25 10/29/25 History release 24 hr insulin glargine 100 unit/mL (3 12 unit subcut HS 09/14/25 10/29/25 History mL) subcutaneous pen (Lantus Solostar U-100 Insulin) ferrous sulfate 325 mg (65 mg 325 mg PO BID #90 tabs 10/02/25 10/29/25 Rx iron) tablet arformoterol 15 mcg/2 mL solution 2 ml inhalation BID PRN Shortness 10/29/25 10/29/25 History for nebulization (Brovana) Of Breath Or Wheezing budesonide 0.5 mg/2 mL suspension 0.5 mg inhalation AMHS 10/29/25 10/29/25 History for nebulization Past Med/Surg History Problem List (Updated 10/30/25 @ 06:40 by Krishna Ronquillo MD) Elevated troponin Rhabdomyolysis Adjustment disorder with mixed anxiety and depressed mood Palliative care by specialist QUENTIN (acute kidney injury) (Acute) Hypomagnesemia (Acute) Ambulatory dysfunction (Acute) Nonadherence to medication PTSD (post-traumatic stress disorder) Diabetes insipidus Chronic anemia (Acute) Vision loss, left eye Entered 05/2025 Hypopituitarism Psychogenic nonepileptic seizure Asthma Presbyopia of both eyes Epiretinal membrane (ERM) of left eye Ocular hypertension Demyelinating disease Esophageal dysphagia 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 tested positive in Aug 2023 [place] Current use of proton pump inhibitor Chronic migraine without aura or status migrainosus Ulcerative colitis Mixed hyperlipidemia Lumbar stenosis with neurogenic claudication Essential tremor Mitral regurgitation Anti-cyclic citrullinated peptide antibody positive Internal hemorrhoids Prostate mass benign Medical History Lethargy Chronic respiratory failure with hypoxia Acute hypokalemia Hypomagnesemia Atrial tachycardia Calcium nephrolithiasis Seizure disorder Intractable back pain Bilateral nephrolithiasis Compartment syndrome of lower extremity Venous stasis ulcers Chronic venous insufficiency Secondary cataract of left eye with vision obscured Combined form of senile cataract of right eye CHF (congestive heart failure) COPD (chronic obstructive pulmonary disease) Arachnoid cyst of posterior cranial fossa BPH with obstruction/lower urinary tract symptoms Right leg pain Blood loss anemia (06/2025) Therapeutic opioid-induced constipation (OIC) Bipolar 1 disorder Back pain at L4-L5 level Hypokalemia Frequent falls Generalized weakness Generalized pain Hypomagnesemia Hyperphosphatemia CHI (closed head injury) Kidney stones History of pneumonia (03/2025) Ocular hypertension Ulcerative colitis Mixed hyperlipidemia Lumbar stenosis with neurogenic claudication Idiopathic polyneuropathy Essential tremor Demyelinating disease Compartment syndrome of lower extremity (02/2025) Chronic venous insufficiency Depression with anxiety On home O2 History of recent hospitalization Urinary tract obstruction due to kidney stone LPRD (laryngopharyngeal reflux disease) Uncontrolled type 2 diabetes mellitus with hyperglycemia Hypothyroidism Non-occlusive coronary artery disease Chronic narcotic dependence Restrictive lung disease Obstructive sleep apnea Pituitary hypogonadism Secondary adrenal insufficiency Transient alteration of awareness Migraine Growth hormone deficiency Closed fracture of right fibula with malunion Shortness of breath Obesity CKD (chronic kidney disease), stage III Atrial fibrillation (02/15/24) Panhypopituitarism Syncope and collapse Recurrent seizures Pituitary diabetes insipidus Spondylolysis, lumbar region Right lumbar radiculopathy HTN (hypertension) Adrenal insufficiency Hyperactive gag reflex Epidural lipomatosis Chronic left sacroiliac pain Presence of cardiac device Cerebral concussion Orthostatic hypotension Sensorineural hearing loss of both ears Rectal bleeding History of COVID-19 Mitral valve regurgitation Vertigo Lower extremity edema Bilateral hand pain Pituitary neoplasm Bladder mass Surgical History Hx of flexible sigmoidoscopy (07/03/25) History of open reduction and internal fixation (ORIF) procedure (2009) Presence of Watchman left atrial appendage closure device (02/2024) History of arthroplasty of left knee (2014) S/P TURP (status post transurethral resection of prostate) History of lumbar fusion (07/2022) History of cardiac cath (07/2021) S/P epidural steroid injection History of lithotripsy History of bladder surgery History of prostate surgery (2016) History of colonoscopy History of esophagogastroduodenoscopy (EGD) History of tooth extraction History of wisdom tooth extraction History of brain surgery (2017) Family History Grandmother (Paternal) Family history of diabetes mellitus Aunt Family history of diabetes mellitus Uncle Family history of diabetes mellitus Father Prostate cancer Heart disease Osteoarthritis Mother Cardiac disorder Grandmother (Maternal) Myocardial infarction Other Asthma Cancer Hypertension No family history of adverse response to anesthesia No family history of bleeding disorder Stroke Denies family history of Ovarian cancer Breast cancer Colorectal cancer Social History Smoking Status: Never smoker Tobacco Type: Smokeless Tobacco (Dip or Chew) Second Hand Exposure: No; Do You Dip or Chew Tobacco: No; Hx Alcohol Use: No Hx Substance Use: No Preferred Language: Korean Communication Ability: Effective Communication Ability Comment: Unable to obtain due to patient condition. 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 caffeine: No (1/2 20 oz bottle of mountain dew. ) during the past year weight has: increased > 10 lbs Physical Activity Frequency: Daily Physical Activity Frequency Comment: walking, 1.5 miles daily. Seatbelt Use: always Do you think of yourself as: straight/heterosexual Gender Identity: Male Assistive Devices: Cane, CPAP, Oxygen - Continuous and Walker Review of Systems Review of Systems: The patient denies palpitations, lower extremity swelling, vomiting, diarrhea , constipation, abdominal pain, pelvic pain, blood in urine or stool, dysuria, urinary frequency or urgency, memory loss, loss of consciousness, rash, abnormal bruising or bleeding, focal weakness in arms or legs. The review of systems is otherwise negative other than for that already noted above, and at least 10 systems have been reviewed. Physical Exam Physical Exam: The patient is awake, mildly lethargic, well developed and well nourished, normocephalic and atraumatic, lying in bed and in no acute distress HEENT--PERRL, EOMI, mucous membranes and oropharynx dry. Neck--supple. No JVD. No bruits. Thyroid normal, trachea midline, no adenopathy. Heart--normal S1 and S2. No murmurs, rubs or gallops. Lungs--clear bilaterally, no respiratory distress, no accessory muscle use. Abdomen--normal bowel sounds and soft. Nontender. Nondistended, no hernias or masses, no organomegaly. Extremities--No edema. There are good distal pulses b/l. Dermatologic--normal skin turgor, normal color, no abnormal lymph nodes, no rash. Neurologic--cranial nerves II through XII grossly intact. Rheumatologic--limited exam due to generalized muscle pain Psychiatric--normal affect. Results & Data Results & Data Vital Signs (Past 12 Hours) Vital Signs Temp Pulse Resp BP Pulse Ox O2 Del Method O2 Flow Rate 10/29/25 19:42 113 H 19 156/90 H 100 Nasal Cannula 4 10/29/25 19:30 108 H 21 156/90 H 100 Nasal Cannula 4 10/29/25 19:00 113 H 24 148/92 H 92 Nasal Cannula 4 10/29/25 18:51 118 H 24 173/93 H 100 Nasal Cannula 4 10/29/25 18:01 117 H 10/29/25 17:15 36.6 C 129 H 18 136/84 94 Room Air Laboratory Results Laboratory Results WBC 14.01 K/ul (4.8-10.8) H 10/30/25 04:37 RBC 4.66 M/uL (4.70-6.10) L 10/30/25 04:37 Hgb 14.3 g/dL (14.0-18.0) 10/30/25 04:37 Hct 41.2 % (42.0-52.0) L 10/30/25 04:37 MCV 88.4 fL (80.0-100.0) 10/30/25 04:37 MCH 30.7 pg (25.0-34.0) 10/30/25 04:37 MCHC 34.7 g/dL (32.0-36.0) 10/30/25 04:37 RDW Std Deviation 44.8 fL (36.4-46.3) 10/30/25 04:37 RDW Coeff of Yanira 13.9 % (11.5-14.5) 10/30/25 04:37 Plt Count 177 K/uL (130-400) 10/30/25 04:37 MPV 9.4 fL (9.4-12.4) 10/30/25 04:37 Immature Gran % (Auto) 0.6 % 10/30/25 04:37 Neut % (Auto) 87.1 % 10/30/25 04:37 Lymph % (Auto) 7.6 % 10/30/25 04:37 Karnes % (Auto) 4.6 % 10/30/25 04:37 Eos % (Auto) 0.0 % 10/30/25 04:37 Baso % (Auto) 0.1 % 10/30/25 04:37 Neut # (Auto) 12.21 K/uL (1.40-6.50) H 10/30/25 04:37 Lymph # (Auto) 1.06 K/uL (1.20-3.40) L 10/30/25 04:37 Karnes # (Auto) 0.64 K/uL (0.11-0.59) H 10/30/25 04:37 Eos # (Auto) 0.00 K/uL (0.00-0.50) 10/30/25 04:37 Baso # (Auto) 0.02 K/uL (0.00-0.20) 10/30/25 04:37 Immature Gran # (Auto) 0.08 K/uL (0.01-0.20) 10/30/25 04:37 ESR 47 mm/hr (0-20) H 10/29/25 18:19 PT 11.4 Seconds (9.0-12.0) 10/30/25 04:37 INR 1.1 (0.9-1.1) 10/30/25 04:37 APTT 33 Seconds (21-31) H 10/30/25 04:37 PTT Ratio 1.2 10/30/25 04:37 Heparin Anti-Xa, Unfract < 0.10 IU/ml (0.3-0.7) L 10/30/25 04:37 Sodium 136 mmol/L (136-145) 10/29/25 18:19 Potassium 3.6 mmol/L (3.5-5.1) 10/29/25 18:19 Chloride 96 mmol/L (98-107) L 10/29/25 18:19 Carbon Dioxide 28 mmol/L (21-32) 10/29/25 18:19 Anion Gap 12 (3-11) H 10/29/25 18:19 BUN 9 mg/dl (6-23) 10/29/25 18:19 Creatinine 1.17 mg/dl (0.6-1.4) 10/29/25 18:19 Est Cr Clr Drug Dosing 87.3 ml/min 10/29/25 18:19 eGFR 72.71 10/29/25 18:19 BUN/Creatinine Ratio 7.7 (10-20) L 10/29/25 18:19 Glucose 110 mg/dl (70-99(Fasting)) H 10/29/25 18:19 POC Glucose 159 mg/dl (70-99) H 10/29/25 23:03 Lactate 1.6 mmol/L (0.4-2.0) 10/29/25 18:19 Calcium 9.8 mg/dl (8.6-10.3) 10/29/25 18:19 Magnesium 1.7 mg/dl (1.7-2.4) 10/29/25 18:19 Total Bilirubin 2.1 mg/dl (0.2-1.0) H 10/29/25 18:19 AST 38 U/L (13-39) 10/29/25 18:19 ALT 29 U/L (7-52) 10/29/25 18:19 Alkaline Phosphatase 62 U/L (34-104) 10/29/25 18:19 Total Creatine Kinase 1944 U/L (30-223) H 10/29/25 18:19 Troponin I High Sens 291.3 pg/ml (0-20) H* 10/29/25 20:36 C-Reactive Protein 24.00 mg/dl (0-0.5) H 10/29/25 18:19 Total Protein 7.4 gm/dl (6.0-8.3) 10/29/25 18:19 Albumin 4.5 gm/dl (3.4-5.0) 10/29/25 18:19 Globulin 2.9 gm/dl (2.5-4.0) 10/29/25 18:19 Albumin/Globulin Ratio 1.6 (0.9-2) 10/29/25 18:19 TSH 0.045 uIu/ml (0.300-4.500) L 10/29/25 18:19 Free T4 0.93 ng/dl (0.61-1.60) 10/29/25 18:19 Free T3 2.92 pg/ml (2.3-4.2) 10/29/25 18:19 Urine Color Yellow 10/29/25 19:50 Urine Appearance Clear (Clear) 10/29/25 19:50 Urine pH 6.5 (4.5-7.5) 10/29/25 19:50 Ur Specific Cuddy 1.007 (1.000-1.030) 10/29/25 19:50 Urine Protein Negative (Negative) 10/29/25 19:50 Urine Glucose (UA) Negative (Negative) 10/29/25 19:50 Urine Ketones Trace (Negative) H 10/29/25 19:50 Urine Blood Negative (Negative) 10/29/25 19:50 Urine Nitrite Negative (Negative) 10/29/25 19:50 Urine Bilirubin Negative (Negative) 10/29/25 19:50 Urine Urobilinogen Negative (Negative) 10/29/25 19:50 Ur Leukocyte Esterase Negative (Negative) 10/29/25 19:50 Urine Comment 10/29/25 19:50 Urine Opiates Screen Neg (Neg) 10/29/25 19:50 Ur Methadone, Qual Neg (Neg) 10/29/25 19:50 Urine Fentanyl Screen Neg (Neg) 10/29/25 19:50 Urine Barbiturates Neg (Neg) 10/29/25 19:50 Ur Phencyclidine (PCP) Neg (Neg) 10/29/25 19:50 U Amphetamin/Meth Scrn Neg (Neg) 10/29/25 19:50 MDMA (Ecstasy) Screen Neg (Neg) 10/29/25 19:50 U Benzodiazepines Scrn Neg (Neg) 10/29/25 19:50 Ur Cocaine Metabolite Neg (Neg) 10/29/25 19:50 U Marijuana (THC) Screen Neg (Neg) 10/29/25 19:50 Adenovirus (PCR) Not Detected (NotDetected) 10/29/25 18:40 Anaplasma Smear See Comment 10/29/25 18:19 Babesia Smear See Comment 10/29/25 18:19 B. pertussis DNA (PCR) Not Detected (NotDetected) 10/29/25 18:40 B.parapertussis DNA PCR Not Detected (NotDetected) 10/29/25 18:40 Lyme Disease Screen Negative (Negative) 10/29/25 18:19 C. pneumoniae DNA (PCR) Not Detected (NotDetected) 10/29/25 18:40 Coronavirus OC43 (PCR) Not Detected (NotDetected) 10/29/25 18:40 Coronavirus HKU1 (PCR) Not Detected (NotDetected) 10/29/25 18:40 Coronavirus 229E (PCR) Not Detected (NotDetected) 10/29/25 18:40 SARS-CoV-2 (PCR) Not Detected (NotDetected) 10/29/25 18:40 Coronavirus NL63 (PCR) Not Detected (NotDetected) 10/29/25 18:40 Human Metapneumovir PCR Not Detected (NotDetected) 10/29/25 18:40 Influenza Type A (PCR) Not Detected (NotDetected) 10/29/25 18:40 Influenza Type B (PCR) Not Detected (NotDetected) 10/29/25 18:40 M. pneumoniae (PCR) Not Detected (NotDetected) 10/29/25 18:40 Parainfluenza 1 (PCR) Not Detected (NotDetected) 10/29/25 18:40 Parainfluenza 2 (PCR) Not Detected (NotDetected) 10/29/25 18:40 Parainfluenza 3 (PCR) Not Detected (NotDetected) 10/29/25 18:40 Parainfluenza 4 (PCR) Not Detected (NotDetected) 10/29/25 18:40 RSV (PCR) Not Detected (NotDetected) 10/29/25 18:40 Entero/Rhino (PCR) Not Detected (NotDetected) 10/29/25 18:40 SARS-CoV-2, RNA, NAAT NEGATIVE (NEGATIVE) 10/29/25 17:55 Impressions Chest X-Ray 10/29/25 17:44 Chest radiograph, one view History: Chest pain Comparison: None Findings: Single AP view of the chest performed. No focal consolidation or pleural effusion. No pneumothorax. The cardiomediastinal silhouette is within normal limits. Normal pulmonary vascularity. No evidence for lymphadenopathy. Left chest wall loop recorder device. No visualized bony or soft tissue abnormality. Impression: Normal chest radiograph Electronically signed by Patrick Avelmaria eugenia 10-29-2025 6:43 PM Venous Doppler Study 10/29/25 20:24 Exam(s): US VENOUS BILATERAL LOWER EXTREMITIES EXAM: US Duplex Bilateral Lower Extremities Veins CLINICAL HISTORY: Reason for exam: tachycardia, possible PE, dye allergy. OTHER: Other Notes: PEs. On blood thinners. R/o DVT. NO DVT seen BLE. TECHNIQUE: Real-time duplex ultrasound scan of the bilateral lower extremity veins integrating B-mode two-dimensional vascular structure, Doppler spectral analysis, color flow Doppler imaging and compression. COMPARISON: No relevant prior studies available. FINDINGS: Right deep veins: Unremarkable. No DVT in the right common femoral, femoral, proximal deep femoral or popliteal veins. The veins demonstrate normal color flow, are normally compressible, with normal phasic flow and/or augmentation response. Right superficial veins: Unremarkable. No thrombus in the visualized right great saphenous vein. Left deep veins: Unremarkable. No DVT in the left common femoral, femoral, proximal deep femoral or popliteal veins. The veins demonstrate normal color flow, are normally compressible, with normal phasic flow and/or augmentation response. Left superficial veins: Unremarkable. No thrombus in the visualized left great saphenous vein. Soft tissues: No acute findings. No popliteal cyst. IMPRESSION: Normal bilateral lower extremity duplex venous ultrasound. Electronically signed by: James Siegel MD 10/30/25 00:09 AM Code Status & VTE Plan Code Status Full code VTE Prophylaxis Plan VTE Prophylaxis will be ordered: Yes PG Care Time/CCT Total # of Minutes Spent Total Time Spent with Patient: Total time spent is greater than 50% in coordination of care (as documented) at patient's floor/unit and/or counseling patient: 51 minutes Coding Level of Care Code 70038 INT INP/OBS CARE 3/75MIN Diagnoses Rhabdomyolysis M62.82 Elevated troponin R79.89 Nonadherence to medication Z91.148 Bipolar disorder F31.9
[2025-10-29 21:34] LABS: Amphetamines+Metham, Urine Neg (Neg); MDMA (Ecstacy), Urine Neg (Neg); Marijuana, Urine Neg (Neg)
[2025-10-29] MEDS ORDERED: ONDANSETRON INJ 2 MG/ML 2 ML VIAL IV PRN (22:02)
[2025-10-29] MEDS ORDERED: GLUCOSE 10 TAB/TUBE PO PRN (22:02)
[2025-10-29] MEDS ORDERED: FLUTICASONE PROPIONATE NA SPR 16 GM BTL NAE PRN (22:02)
[2025-10-29] MEDS ORDERED: GLUCOSE 40% GEL 15 GM TUBE PO PRN (22:02)
[2025-10-29] MEDS ORDERED: ALBUT/IPRATROP 3MG/0.5MG NEB 3 ML VIAL INH PRN (22:02)
[2025-10-29] MEDS ORDERED: CARBOHYDRATES FOR HYPOGLYCEMIA PO PRN (22:02)
[2025-10-29] MEDS ORDERED: ALBUTEROL HFA 8 GM INHALER INH PRN (22:02)
[2025-10-29] MEDS ORDERED: GLUCAGON FOR INJ 1 MG VIAL SQ PRN (22:02)
[2025-10-29] MEDS ORDERED: DEXTROSE 50% 50 ML SYRINGE IV PRN (22:02)
[2025-10-29] MEDS ORDERED: ACETYLCYSTEINE 20% INHAL SOLN 4ML ***DISPENSED BY RESP. INH PRN (22:05)
[2025-10-29] MEDS ORDERED: FORMOTEROL 20 MCG/2 ML VIAL INH PRN (22:06)
[2025-10-29] MEDS ORDERED: ONDANSETRON 4 MG OD TAB PO PRN (22:13)
[2025-10-29] MEDS: LACTATED RINGER'S 1,000 ML IV ONE (22:23)
[2025-10-29] MEDS: MAGNESIUM SULFATE / D5W 1 GM/100 ML BAG IV ONE (22:28)
[2025-10-29] MEDS: LACTATED RINGER'S 1,000 ML IV SCH (22:33)
[2025-10-29] MEDS: LACOSAMIDE 50 MG TABLET PO SCH (23:05)
[2025-10-29] MEDS: CLOPIDOGREL BISULFATE 75 MG TAB PO SCH (23:05)
[2025-10-29] MEDS: DESMOPRESSIN ACETATE 0.1 MG TAB PO SCH (23:05)
[2025-10-29] MEDS: DOCUSATE SODIUM 100 MG CAP PO SCH (23:05)
[2025-10-29] MEDS: levETIRAcetam 250 MG TAB PO SCH (23:06)
[2025-10-29] MEDS: MAGNESIUM OXIDE 400 MG TAB PO SCH (23:06)
[2025-10-29] MEDS: PANTOprazole 40 MG/10 ML SYR IV SCH (23:06)
[2025-10-29] MEDS: LANTUS PER UNIT CHARGE SC SCH (23:06)
[2025-10-29] MEDS: PROPRANOLOL HCL 60 MG LA CAP PO SCH (23:06)
--- NOTE | 2025-10-30 00:11 | Ultrasound Report ---
Exam(s): US VENOUS BILATERAL LOWER EXTREMITIES EXAM: US Duplex Bilateral Lower Extremities Veins CLINICAL HISTORY: Reason for exam: tachycardia, possible PE, dye allergy. OTHER: Other Notes: PEs. On blood thinners. R/o DVT. NO DVT seen BLE. TECHNIQUE: Real-time duplex ultrasound scan of the bilateral lower extremity veins integrating B-mode two-dimensional vascular structure, Doppler spectral analysis, color flow Doppler imaging and compression. COMPARISON: No relevant prior studies available. FINDINGS: Right deep veins: Unremarkable. No DVT in the right common femoral, femoral, proximal deep femoral or popliteal veins. The veins demonstrate normal color flow, are normally compressible, with normal phasic flow and/or augmentation response. Right superficial veins: Unremarkable. No thrombus in the visualized right great saphenous vein. Left deep veins: Unremarkable. No DVT in the left common femoral, femoral, proximal deep femoral or popliteal veins. The veins demonstrate normal color flow, are normally compressible, with normal phasic flow and/or augmentation response. Left superficial veins: Unremarkable. No thrombus in the visualized left great saphenous vein. Soft tissues: No acute findings. No popliteal cyst. IMPRESSION: Normal bilateral lower extremity duplex venous ultrasound. Electronically signed by: James Siegel MD 10/30/25 00:09 AM
[2025-10-30 05:26] LABS: Hematocrit (blood only) 41.2 % (42.0-52.0); Hemoglobin 14.3 g/dL (14.0-18.0); Immature Granulocytes # (auto) 0.08 K/uL (0.01-0.20); Immature Granulocytes % (auto) 0.6 %; Mean Corpuscular Hemoglobin 30.7 pg (25.0-34.0); Mean Corpuscular Volume 88.4 fL (80.0-100.0); Platelet Count 177 K/uL (130-400); RDW Standard Deviation 44.8 fL (36.4-46.3); Red Blood Count 4.66 M/uL (4.70-6.10); White Blood Count 14.01 K/ul (4.8-10.8)
[2025-10-30 05:27] LABS: ANTI-Xa, UFH(UnfractionatedHep < 0.10 IU/ml (0.3-0.7)
[2025-10-30 05:41] LABS: INR 1.1 (0.9-1.1); Partial Thromboplastin Time 33 Seconds (21-31); Prothrombin Time 11.4 Seconds (9.0-12.0)
[2025-10-30] MEDS: HEPARIN SOD (PORCINE) 1000 UNIT/ML IV ONE (05:59)
--- NOTE | 2025-10-30 06:50 | Billing Data ---
Date of Service October 30, 2025 Coding Level of Care Code 86134 CRITICAL CARE
[2025-10-30] MEDS: BUDESONIDE 0.5 MG/2 ML VIAL (PULMICORT) INH SCH (06:54)
[2025-10-30] MEDS: SODIUM CHLOR 7% 4 ML NEB INH SCH (06:54)
[2025-10-30 07:40] LABS: Hemoglobin A1C 5.8 % (4.5-5.6)
[2025-10-30] MEDS: LEVOTHYROXINE SODIUM 200 MCG TABLET PO SCH (07:44)
[2025-10-30] MEDS: ACETAMINOPHEN 500 MG TAB PO PRN (08:31)
[2025-10-30] MEDS: DIVALPROEX EXTENDED RELEASE 500 MG TAB PO SCH (08:32)
[2025-10-30] MEDS: FERROUS SULFATE 325 MG TAB PO SCH (08:33)
[2025-10-30] MEDS: ASCORBIC ACID 500 MG TAB PO SCH (08:33)
[2025-10-30] MEDS: FAMOTIDINE 20 MG TAB PO SCH (08:33)
[2025-10-30] MEDS: FINASTERIDE 5 MG TAB PO SCH (08:33)
[2025-10-30] MEDS: VITAMIN B COMPLEX TAB PO SCH (08:33)
[2025-10-30] MEDS: HYDROCORTISONE SOD 100 MG in SYRINGE 0 ML IV SCH (08:34)
[2025-10-30 08:40] LABS: Alanine Aminotransferase 23.0 U/L (7-52); Albumin Globulin Ratio 1.1 (0.9-2); Albumin Level 3.8 gm/dl (3.4-5.0); Alkaline Phosphatase 61.0 U/L (34-104); Anion Gap 11.0 (3-11); Bilirubin,Total 1.3 mg/dl (0.2-1.0); Blood Urea Nitrogen 9.0 mg/dl (6-23); Calcium 9.7 mg/dl (8.6-10.3); Carbon Dioxide 24.0 mmol/L (21-32); Chloride 103.0 mmol/L (98-107); Creatinine Clr Calc Pharmacy 124.6 ml/min; Globulin 3.4 gm/dl (2.5-4.0); Glucose 182.0 mg/dl (70-99(Fasting)); Magnesium 2.1 mg/dl (1.7-2.4); Potassium 4.8 mmol/L (3.5-5.1); Sodium 138.0 mmol/L (136-145); Total Protein 7.2 gm/dl (6.0-8.3)
--- NOTE | 2025-10-30 08:50 | XCELERA ---
[id number]
[2025-10-30] MEDS ORDERED: HYDROCORTISONE 10 MG TAB PO SCH ×2 (09:00→21:00)
[2025-10-30] MEDS: INSULIN ASPART PER UNIT CHARGE SC SCH (09:04)
[2025-10-30 09:50] LABS: Creatine Kinase 901.0 U/L (30-223)
[2025-10-30 13:28] LABS: ANTI-Xa, UFH(UnfractionatedHep 0.14 IU/ml (0.3-0.7)
--- NOTE | 2025-10-30 13:57 | Hospitalist Progress Note ---
"Date of Service October 30, 2025 Assessment & Plan (1) Rhabdomyolysis: (2) Elevated troponin: (3) Nonadherence to medication: (4) Bipolar disorder: Plan The patient is a 55-year-old male with a past medical history including adjustment disorder with mixed anxiety and depressed mood, nonadherence to medication, PTSD, diabetes insipidus, diabetes mellitus, hypopituitarism, psychogenic nonepileptic seizure, asthma, demyelinating disease, GERD, chronic migraine, ulcerative colitis, essential tremor, and mitral regurgitation. Presented for diffuse bodyaches that began day [employer], along with fatigue - reports he slept all day. He denies any recent travels or sick exposures or insect bites. Inital workup with CK 1944, TSH 0.045 but T4/T3 WNL, normal respiratory BioFire test. EKG showed sinus tachycardia [address]-T changes and occasional PAC. Admitted for IV hydration, cardiac monitoring and further workup. Rhabdomyolysis | generalized muscle aches | Weakness | abdominal pain - Patient's main complaint was that of generalized muscle aches that began relatively acutely over the past day or 2, unclear cause of mild rhabo. Biofire negative. CK on admission was 1944, s/p 4L IVF, CK downtrending, encourage PO fluids Unclear etiology for his symptoms - given immunocompromised state (on chronic steroids) pursue further infectious workup in setting of leukocytosis, elevated CRP and ESR - blood cultures, procal, stool studies and CT A/P added AM CBC, BMP and CRP PT/OT Panhypopituitarism/diabetes insipidus- follows with [facility]. On chronic Cortef - held Stress dose steroids with hydrocortisone 50 mg IV every 8 hours #Chronic Narcotic Use - has oxycodone Q6h prn for chronic back and leg pain. Patient reports he only takes when he really needs it, 1-2 times per day. PDMP shows 30 day fills on 07/05 and 09/14 Concerns for opioid withdrawal on admission - given fatigue, muscle aches and negative UDS however seems much more likely he is infected will resume oxycodone 5mg q6h prn pain when patient remains more alert consistently if needing for pain Elevated troponin | Demand ischemia | tachycardia- Troponin was 359.3 on admission but has downtrending. ED concern for PE, unable to do CTA secondary to contrast allergy. LE dopplers were negative. HR improved with IV fluid, O2 needs at baseline and Echo without evidence of Right heart strain or RWMA, EF 60-65%. No concern for ACS or PE - okay to stop heparin drip Bipolar disorder | psychogenic nonepileptic seizure Continue Keppra Hypothyroidism- TSH is mildly suppressed at 0.045 with a normal free T4 and T3 Continue synthroid Diabetes mellitus- A1c 5.8. Home med - lantus 12u HS - continued Add SSI with stress dose steroid use #Asthma/COPD | Chronic hypoxemic respiratory failure | [place] - baseline O2 requirement of 4 L via NC during the daytime and CPAP HS. No acute process on CXR. Continue home inhalers/nebs CPAP HS #HTN | HLD - continue beta benjamín, rosuvastatin, lisinopril dispo: continued inpatient stay, infectious workup DVT proh: SQ lovenox updated by phone 10/30 Admission and Anticipated Discharge Date Admission Date: October 29, 2025 Supervising Physician Co-Signing Physician Notes I did not see or examine the patient. I verified all tinoco points and agree with Betty Gamez PA-C with the following exceptions and/or additions: None Subjective patient seen sitting up in bed, no family present at bedside Patient reports pain in his back and right leg that is chronic - he takes oxycodone at home for this, but only when he absolutely needs it 1-2 times per day. thinks he last took this tuesday morning Reports he came to the hospital because his made him - sleeping alot, falling alseep during conversations and weak at home. denies cough, cold or congestion symptoms. Does have chills, unknown if fevers. Diarrhea started yesterday and has had 3 episode today Review of Systems Review of Systems: All systems reviewed & are unremarkable except as noted in Subjective Physical Exam Physical Exam: General: NAD, VS as above HEENT: PEERLA, EOMI Resp: normal respiratory effort, lungs clear to auscultation, on room air CV: RRR, no murmur, Abd: normal bowel sounds, generalized tenderness, soft Extremities: Moves all extremities, no pitting edema to LE Neuro: A&O x3, Skin: intact, non diaphoretic Results & Data Results & Data Vital Signs (Past 12 Hours) Vital Signs Temp Pulse Pulse Resp BP BP Pulse Ox 10/30/25 13:15 97.3 F L 95 H 18 131/84 94 10/30/25 12:28 97.5 F L 10/30/25 09:30 99 H 20 96 10/30/25 09:00 91 H 19 98 10/30/25 08:30 96 H 17 98 10/30/25 08:00 135/89 10/30/25 08:00 96 H 20 97 10/30/25 07:30 112 H 97 10/30/25 07:01 148/83 H 10/30/25 07:00 95 H 25 H 10/30/25 06:54 94 H 20 100 10/30/25 06:15 94 H 18 133/95 100 10/30/25 03:00 95 H 18 135/79 96 10/30/25 02:01 O2 Del Method O2 Flow Rate 10/30/25 13:15 Room Air 10/30/25 12:28 10/30/25 09:30 Oxymask 4 10/30/25 09:00 Oxymask 4 10/30/25 08:30 Oxymask 4 10/30/25 08:00 10/30/25 08:00 Oxymask 4 10/30/25 07:30 Oxymask 4 10/30/25 07:01 10/30/25 07:00 10/30/25 06:54 Oxymask 4 10/30/25 06:15 Oxymask 4 10/30/25 03:00 Oxymask 4 10/30/25 02:01 Oxymask 4 Laboratory Results cbc, chemistry and CRP Reviewed a2c reviewed troponin reviewed CK reviewed Diagnostic Findings CXR reviewed PG Care Time/CCT Total # of Minutes Spent Total Time Spent with Patient: Total time spent is greater than 50% in coordination of care (as documented) at patient's floor/unit and/or counseling patient: Coding Level of Care Code 79480 SUB INP/OBS CARE 3/50MIN Diagnoses Rhabdomyolysis M62.82 Elevated troponin R79.89 Nonadherence to medication Z91.148 Bipolar disorder F31.9"
--- NOTE | 2025-10-30 15:49 | CT Scan Report ---
ABDOMEN AND PELVIS CT WITHOUT CONTRAST CT DOSE: 1630.53 mGy.cm HISTORY: Acute abdominal pain with weakness abdominal pain - generalized, weakness, ?infection TECHNIQUE: Multiaxial CT images of the abdomen and pelvis were performed without contrast. A dose lo wering technique was utilized adhering to the principles of ALARA. COMPARISON STUDY: CT abdomen and pelvis 07/15/2025 FINDINGS: The imaged lung bases appear to be clear.. Previously noted punctate right lower pole renal calculus is not definitively seen. Nonobstructing calculi within the superior pole right kidney zita ure up to 6 mm. Additional 3 mm nonobstructing calculus of a superior pole calyx noted on image 140 s eries 3. There are no ureteral calculi. There is no hydronephrosis. Evaluation of the remainder of the abdomen and pelvis is suboptimal as unenhanced exam. Unenhanced im ages of the liver, spleen, adrenal glands and pancreas are unremarkable. Fatty infiltration of the li celina. There is no evidence for a bowel obstruction. There is colonic diverticulosis. No evidence for a cute diverticulitis. There is no lymphadenopathy. There are no fluid collections. Prostatic calcifica tions are incidentally noted. IMPRESSION: 1. Nonobstructing right renal calculi. 2. No ureteral calculi or hydronephrosis identified. 3. No bowel obstruction or bowel wall thickening. 4. Hepatic steatosis. ACT 112: Negative or not required by law. The above report was generated using voice recognition software. It may contain grammatical, syntax o r spelling errors. Electronically signed by: Bean Tolentino M.D. 10/30/2025 3:47 PM
[2025-10-30] MEDS: HYDROCORTISONE SOD 50 MG in SYRINGE 0 ML IV SCH (17:30)
[2025-10-30] MEDS: CHOLECALCIFEROL 25 MCG (1000 UNITS) TAB PO SCH (20:55)
[2025-10-31 00:22] LABS: Appearance Urine Turbid (Clear); Bacteria Urine Automated None Seen (None Seen); Cast Urine Automated 0-2 /lpf (0-2); Epithelial Cell Urine Auto 0-2 /hpf (0-2); Glucose Urine UA Negative (Negative); RBC Urine Automated 0-2 /hpf (0-2); WBC Urine Automated 0-5 /hpf (0-5)
[2025-10-31 06:26] LABS: Hematocrit (blood only) 34.2 % (42.0-52.0); Hemoglobin 12.0 g/dL (14.0-18.0); Immature Granulocytes # (auto) 0.33 K/uL (0.01-0.20); Immature Granulocytes % (auto) 1.5 %; Mean Corpuscular Hemoglobin 31.2 pg (25.0-34.0); Mean Corpuscular Volume 88.8 fL (80.0-100.0); Platelet Count 224 K/uL (130-400); RDW Standard Deviation 45.6 fL (36.4-46.3); Red Blood Count 3.85 M/uL (4.70-6.10); White Blood Count 21.78 K/ul (4.8-10.8)
[2025-10-31 06:54] LABS: Alanine Aminotransferase 19.0 U/L (7-52); Albumin Globulin Ratio 1.5 (0.9-2); Albumin Level 3.8 gm/dl (3.4-5.0); Alkaline Phosphatase 48.0 U/L (34-104); Anion Gap 7.0 (3-11); Bilirubin,Total 0.4 mg/dl (0.2-1.0); Blood Urea Nitrogen 14.0 mg/dl (6-23); Calcium 9.0 mg/dl (8.6-10.3); Carbon Dioxide 28.0 mmol/L (21-32); Chloride 105.0 mmol/L (98-107); Creatinine Clr Calc Pharmacy 120.6 ml/min; Globulin 2.5 gm/dl (2.5-4.0); Glucose 169.0 mg/dl (70-99(Fasting)); Magnesium 2.0 mg/dl (1.7-2.4); Potassium 4.6 mmol/L (3.5-5.1); Sodium 140.0 mmol/L (136-145); Total Protein 6.3 gm/dl (6.0-8.3)
--- NOTE | 2025-10-31 10:50 | Electrocardiogram Report ---
Test Reason : Blood Pressure : */* mmHG Vent. Rate : 76 BPM Atrial Rate : 76 BPM P-R Int : 158 ms QRS Dur : 92 ms QT Int : 360 ms P-R-T Axes : 55 6 14 degrees QTcB Int : 405 ms Normal sinus rhythm Normal ECG When compared with ECG of 29-Oct-2025 20:32, (unconfirmed) Vent. rate has decreased by 38 bpm Confirmed by Bo Edwards ([id number]) on 10/31/2025 10:50:13 AM Referred By: REFERRED SELF Confirmed By: Bo Edwards
[2025-10-31] MEDS: LACTATED RINGER'S 500 ML IV ONE (10:52)
[2025-10-31] MEDS: MAGNESIUM SULFATE / D5W 1 GM/100 ML BAG IV ONE (10:53)
--- NOTE | 2025-10-31 13:13 | Hospitalist Progress Note ---
"Date of Service October 31, 2025 Assessment & Plan (1) Rhabdomyolysis: (2) Elevated troponin: (3) Nonadherence to medication: (4) Bipolar disorder: Plan The patient is a 55-year-old male with a past medical history including adjustment disorder with mixed anxiety and depressed mood, nonadherence to medication, PTSD, diabetes insipidus, diabetes mellitus, hypopituitarism, psychogenic nonepileptic seizure, asthma, demyelinating disease, GERD, chronic migraine, ulcerative colitis, essential tremor, and mitral regurgitation. Presented for diffuse bodyaches that began day [employer], along with fatigue - reports he slept all day. He denies any recent travels or sick exposures or insect bites. Inital workup with CK 1944, TSH 0.045 but T4/T3 WNL, normal respiratory BioFire test. EKG showed sinus tachycardia [address]-T changes and occasional PAC. Admitted for IV hydration, cardiac monitoring and further workup. Rhabdomyolysis | generalized muscle aches | Weakness | abdominal pain - Patient's main complaint was that of generalized muscle aches that began relatively acutely over the past day or 2, unclear cause of mild rhabo. Biofire negative. CK on admission was 1944, s/p 4L IVF, CK downtrending, encourage PO fluids Unclear etiology for his symptoms - given immunocompromised state (on chronic steroids) pursue further infectious workup in setting of leukocytosis, elevated CRP and ESR - procal negative, CT A/P without signs of infection, UA negative. stool studies pending - no further diarrhea Blood cultures: pending Patient improving without abx - ? adrenal crisis on presentation AM CBC, BMP and CRP PT/OT pending Panhypopituitarism/diabetes insipidus- follows with [facility]. On chronic Cortef - held Stress dose steroids - reduce to hydrocortisone 50 mg IV every 8 hours leukocytosis likely reactive to steroid use #Chronic Narcotic Use - has oxycodone Q6h prn for chronic back and leg pain. Patient reports he only takes when he really needs it, 1-2 times per day. PDMP shows 30 day fills on 07/05 and 09/14 Concerns for opioid withdrawal on admission - given fatigue, muscle aches and negative UDS however seems much more likely he is infected/arenal crisis will resume oxycodone 5mg q6h prn pain Elevated troponin | Demand ischemia | tachycardia- Troponin was 359.3 on admission but has downtrending. ED concern for PE, unable to do CTA secondary to contrast allergy. LE dopplers were negative. HR improved with IV fluid, O2 needs at baseline and Echo without evidence of Right heart strain or RWMA, EF 60-65%. No concern for ACS or PE - okay to stop heparin drip Bipolar disorder | psychogenic nonepileptic seizure Continue Keppra Hypothyroidism- TSH is mildly suppressed at 0.045 with a normal free T4 and T3 Continue synthroid Diabetes mellitus- A1c 5.8. Home med - lantus 12u HS - continued Add SSI with stress dose steroid use - bsg acceptable #Asthma/COPD | Chronic hypoxemic respiratory failure | [place] - baseline O2 requirement of 4 L via NC during the daytime and CPAP HS. No acute process on CXR. Continue home inhalers/nebs CPAP HS #HTN | HLD - continue beta benjamín, rosuvastatin, lisinopril dispo: continued inpatient stay, trending labs, PT/OT DVT proh: SQ lovenox updated by phone 10/30 Admission and Anticipated Discharge Date Admission Date: October 29, 2025 Supervising Physician Co-Signing Physician Notes I did not see or examine the patient. I verified all tinoco points and agree with Betty Gamez PA-C with the following exceptions and/or additions: none Subjective patient seen sitting up in bed, reports feeling better this morning able to stay awake longer but still feeling alittle drowsy and that his thinking is alittle foggy reports muscle pain to his left leg which is different from his baseline no further BM today appetite is okay Tele - SR 70-80s Review of Systems Review of Systems: All systems reviewed & are unremarkable except as noted in Subjective Physical Exam Physical Exam: General: NAD, VS as above, sitting up in bed, more awake today Resp: normal respiratory effort, lungs clear to auscultation, on baseline oxygen CV: RRR, no murmur, Abd: normal bowel sounds, generalized tenderness, soft Extremities: Moves all extremities, no pitting edema to LE Neuro: A&O x3, Skin: intact, non diaphoretic Results & Data Results & Data Vital Signs (Past 12 Hours) Vital Signs Temp Pulse Pulse Resp BP Pulse Ox O2 Del Method 10/31/25 11:22 97.9 F 74 141/85 H 99 Nasal Cannula 10/31/25 08:00 Nasal Cannula 10/31/25 07:38 97.5 F L 76 130/82 97 Nasal Cannula 10/31/25 07:20 74 18 98 Nasal Cannula 10/31/25 03:10 97.7 F 76 19 122/80 98 Nasal Cannula O2 Flow Rate 10/31/25 11:22 4 10/31/25 08:00 4 10/31/25 07:38 4 10/31/25 07:20 4 10/31/25 03:10 4 Laboratory Results cbc and chemistry reviewed PG Care Time/CCT Total # of Minutes Spent Total Time Spent with Patient: Total time spent is greater than 50% in coordination of care (as documented) at patient's floor/unit and/or counseling patient: Coding Level of Care Code 85666 SUB INP/OBS CARE 3/50MIN Diagnoses Rhabdomyolysis M62.82 Elevated troponin R79.89 Nonadherence to medication Z91.148 Bipolar disorder F31.9"
[2025-10-31] MEDS: HYDROCORTISONE SOD 25 MG in SYRINGE 0 ML IV SCH (16:58)
[2025-10-31] MEDS: ENOXAPARIN INJ 40 MG/0.4 ML SYR SQ SCH (20:25)
[2025-11-01 03:10] VITALS: TEMP 97.3
[2025-11-01 06:22] LABS: Hematocrit (blood only) 34.2 % (42.0-52.0); Hemoglobin 11.6 g/dL (14.0-18.0); Immature Granulocytes # (auto) 0.21 K/uL (0.01-0.20); Immature Granulocytes % (auto) 1.3 %; Mean Corpuscular Hemoglobin 30.2 pg (25.0-34.0); Mean Corpuscular Volume 89.1 fL (80.0-100.0); Platelet Count 194 K/uL (130-400); RDW Standard Deviation 46.4 fL (36.4-46.3); Red Blood Count 3.84 M/uL (4.70-6.10); White Blood Count 16.56 K/ul (4.8-10.8)
[2025-11-01 06:46] LABS: Alanine Aminotransferase 18.0 U/L (7-52); Albumin Globulin Ratio 1.7 (0.9-2); Albumin Level 3.8 gm/dl (3.4-5.0); Alkaline Phosphatase 47.0 U/L (34-104); Anion Gap 10.0 (3-11); Bilirubin,Total 0.3 mg/dl (0.2-1.0); Blood Urea Nitrogen 19.0 mg/dl (6-23); Calcium 8.9 mg/dl (8.6-10.3); Carbon Dioxide 29.0 mmol/L (21-32); Chloride 102.0 mmol/L (98-107); Creatinine Clr Calc Pharmacy 116.5 ml/min; Globulin 2.3 gm/dl (2.5-4.0); Glucose 139.0 mg/dl (70-99(Fasting)); Magnesium 2.0 mg/dl (1.7-2.4); Potassium 3.8 mmol/L (3.5-5.1); Sodium 141.0 mmol/L (136-145); Total Protein 6.1 gm/dl (6.0-8.3)
[2025-11-01 07:16] VITALS: BP 132/78; RESP 21; O2SAT 100
--- NOTE | 2025-11-01 12:48 | Discharge Summary ---
Discharge Summary Date of Service November 01, 2025 Principal Dx & Hospital Course #1 = Principal Diagnosis (1) Adrenal crisis: (2) Rhabdomyolysis: (3) Elevated troponin: (4) Bipolar disorder: (5) Hypopituitarism: (6) Diabetes insipidus: (7) Psychogenic nonepileptic seizure: (8) Seizure disorder: (9) Chronic respiratory failure with hypoxia: (10) COPD (chronic obstructive pulmonary disease): (11) Back pain at L4-L5 level: Plan Admitted for generalized muscle aches and weakness following viral syndrome symptoms for several days. Treated for mild rhabdomyolysis and adrenal crisis with stress dose IV hydrocortisone and IV fluids. Improved significantly and feels well today. No antibiotics given; no bacterial infection identified. Discharge plan: double dose oral hydrocortisone for 5 days, then resume usual dosing (20 mg AM, 10 mg PM). Myocardial demand ischemia from adrenal crisis. Mildly elevated troponin without acute coronary syndrome. ED concerned about pulmonary embolism; CT angiogram not performed due to contrast allergies. Negative lower extremity Dopplers. Tachycardia resolved with fluids and steroids. Echocardiogram: no right heart strain, regional wall motion abnormalities, normal ejection fraction. No further concern for acute coronary syndrome or pulmonary embolism. Other issues stable; no other medication changes for discharge. Will be treated at [facility] in the near future for right-sided radiculopathy with radiofrequency ablation. Notes For Next Care Provider Viral syndrome leading to mild rhabdo and adrenal crisis Resolved with IVF and IV hydrocortisone Medication Changes From Visit Double dose oral hydrocortisone x 5 days then resume usual dosing Admission HPI Per Admitting Provider The patient is a 55-year-old male with a past medical history including adjustment disorder with mixed anxiety and depressed mood, acute kidney injury, ambulatory dysfunction, nonadherence to medication, PTSD, diabetes insipidus, diabetes mellitus, hypopituitarism, psychogenic nonepileptic seizure, asthma, demyelinating disease, GERD, chronic migraine, ulcerative colitis, essential tremor, and mitral regurgitation. He was accompanied by his , who helped with his HPI and ROS. He developed diffuse bodyaches that began yesterday, along with fatigue. He reports that he slept all day. He denies any recent travels or sick exposures. He reports he takes his medications as directed. He has no tick bites or other insect bites. He reports taking his oxycodone 5 mg every 6 hours as directed, however, urine drug screen added to the ED labs was negative. Workup in the emergency department with the following abnormalities: Magnesium 1.7, potassium 3.6 CK 1944, TSH 0.045, normal respiratory BioFire test. Urine drug screen was negative, including to the oxycodone which he is supposed be taking every 6 hours. EKG showed sinus tachycardia [address]-T changes and occasional PAC. Discharge Exam General Appearance: Normal. Vital signs: Reviewed past 24h vital signs in EMR, unremarkable. HEENT: Within normal limits. Respiratory: Clear lungs bilaterally, no rhonchi, rubs, or wheezes. Cardiovascular: Regular heart rhythm, no murmurs, rubs, or gallops. Gastrointestinal: Soft, nondistended abdomen. Genitourinary: Lymphatic: Back, Musculoskeletal: Extremities: Warm, well-perfused extremities, no edema. Skin: Warm and dry, no rash. Neurological: Alert, oriented x4. Psychiatric: Normal. Other observations: Discharge Plan Discharge Items Patient Disposition: Home - Home Health Services Reason For Visit: RHABDO, DEHYDRATION, ST, ELEVATED TROPONIN Discharge Diagnosis: Adrenal crisis, mild rhabdomyolysis, triggered by viral infection Condition on Discharge: Good Activity: Resume your previous activity Non-emergency contact: Primary Care Provider Call non-emergency contact if: you have any medication questions and your symptoms worsen Follow-up/Referrals: ProLarry MD [Primary Care Provider] - 11/06/25 1:30 pm Diet: Carb Consistent or DM2 Addtl Attending Provider Instructions: You were treated for mild rhabdomyolysis (muscle injury) and adrenal crisis - I agree it sounds like it was triggered by a viral infection Continue taking your usual meds but increase your hydrocortisone to double dose for five days (40 mg in AM and 20 mg in afternoon) to provide some "stress dose" It was a pleasure taking care of you in the hospital, Ivana Mahoney MD Pending Studies at Discharge: No Stand-Alone Forms: My [facility] Navigating Cancer, Smoking Cessation Medications and DC Order Prescriptions: Continued fluticasone propionate [Flonase Allergy Relief] 50 mcg/actuation spray,suspension 1 spray intranasal HS PRN (Reason: allergy symptoms) Qty: 16 0RF Rx Instructions: administer into each nostril (DME) OneTouch Verio test strips Strip See Rx Instructions .MEDSUPPLY Qty: 150 5RF Rx Instructions: check blood sugars 4 times a day (DME) blood-glucose meter [OneTouch Verio Reflect Meter[place] [facility] [place] miscellaneous .MEDSUPPLY Qty: 1 0RF Rx Instructions: As directed (DME) lancets [OneTouch Delica Plus Lancet] 33 gauge [facility] [place] Rx Instructions .MEDSUPPLY Qty: 150 5RF Rx Instructions: As directed check blood sugars 4 times a day (DME) Oxygen Home Liters Per Minute See Rx Instructions .Route Rx Instructions: 4 L o2 via NC As directed, cholecalciferol (vitamin D3) 50 mcg (2,000 unit) capsule 50 mcg PO QPM Qty: 90 1RF (DME) FreeStyle Rosalie 2 Sensor Kit See Rx Instructions .Route Qty: 6 3RF Rx Instructions: Change every 14 days desmopressin 0.2 mg tablet 0.4 mg PO BID Qty: 120 5RF (DME) FreeStyle Rosalie 2 Plus Sensor Device See Rx Instructions .Route Qty: 6 3RF Rx Instructions: change every 15 days dutasteride 0.5 mg capsule 0.5 mg PO QAM Qty: 90 2RF propranolol 120 mg capsule,extended release 24hr 120 mg PO HS Qty: 90 3RF docusate sodium 100 mg capsule 100 mg PO BID 30 Days Qty: 60 1RF Patient Comments: 09/14- otc unable to verify ascorbic acid (vitamin C) 250 mg tablet 250 mg PO BID Qty: 60 2RF ondansetron 8 mg tablet,disintegrating 8 mg PO Q8H PRN (Reason: nausea and vomiting) Qty: 90 1RF ferrous sulfate 325 mg (65 mg iron) tablet 325 mg PO BID Qty: 90 1RF Rx Instructions: you can take this every other day - it works just as well and causes fewer bowel problems (DME) FreeStyle Rosalie 2 [place] [facility] [place] Instructions .Route Qty: 1 0RF Rx Instructions: Check blood glucose before each meal (DME) nebulizers [Compact Compressor Nebulizer] [facility] [place]ructions .Route Qty: 1 0RF Rx Instructions: One compact compressor nebulizer. Use as directed. Please include tubing, mouth piece and cup. ipratropium-albuterol 0.5 mg-3 mg(2.5 mg base)/3 mL solution for nebulization 3 ml inhalation QID PRN (Reason: wheezing) Qty: 90 0RF albuterol sulfate [Ventolin HFA] 90 mcg/actuation HFA aerosol inhaler 2 inh inhalation Q6H PRN (Reason: shortness of breath or wheezing) Qty: 6.7 2RF hydrocortisone 10 mg tablet 10 mg PO QPM Rx Instructions: 2 tabs (20mg) in AM, 1 tab (10mg) in PM double dose in times of stress magnesium oxide 400 mg (241.3 mg magnesium) tablet 400 mg PO HS Hold Instructions: hold until diarrhea resolved - magnesium supplement can cause diarrhea sodium chloride 7 % solution for nebulization 1 inh inhalation BID Qty: 240 3RF acetylcysteine 200 mg/mL (20 %) solution 2 ml inhalation BID PRN (Reason: Chest congestion) Qty: 100 6RF Baqsimi 3 mg/actuation spray,non-aerosol 3 mg intranasal DIRECTED PRN (Reason: Severe Hypoglycemia) Rx Instructions: for treatment of severe hypoglycemia, second dose may be given if patient does not respond after 15 minutes . Per caregiver, pt has never has to use this medication. vitamin B complex [Vitamins B Complex] Capsule 1 cap PO QAM Qty: 30 0RF Norditropin FlexPro 5 mg/1.5 mL (3.3 mg/mL) pen injector 3 mg SQ QPM budesonide 0.5 mg/2 mL suspension for nebulization 0.5 mg inhalation [facility] arformoterol [Brovana] 15 mcg/2 mL solution for nebulization 2 ml inhalation BID PRN (Reason: Shortness Of Breath Or Wheezing) divalproex 500 mg tablet extended release 24 hr 1,000 mg PO QAM naloxone [Narcan] 4 mg/actuation spray,non-aerosol 1 spray intranasal ONCE PRN (Reason: opioid overdose) Qty: 2 2RF hydrocortisone 10 mg tablet 20 mg PO QAM Rx Instructions: 2 tabs (20mg) in AM, 1 tab (10mg) in PM double dose in times of stress clopidogrel 75 mg tablet 75 mg PO QPM famotidine 20 mg tablet 20 mg PO QAM lisinopril 10 mg tablet 20 mg PO QPM levothyroxine 200 mcg tablet 200 mcg PO QAM ramelteon 8 mg tablet 8 mg PO QPM levetiracetam 1,000 mg tablet 250 mg PO BID lacosamide 150 mg tablet 150 mg PO BID insulin glargine [Lantus Solostar U-100 Insulin] 100 unit/mL (3 mL) insulin pen 12 unit SUBCUT HS Discharge Orders: Discharge Order (Routine); Ordered 11/01/25 Ordered By: Ivana Mahoney Admission Data Admit Date/Time: 10/29/25 21:08 Attending Provider: Ivana Mahoney Admit Provider: Krishna Ronquillo Primary Care Provider: Larry Amaral Other Providers: Krishna Ronquillo Other Interventions: Discharge Summary Assessment (RN) Last Done: 11/01/25 14:56 Hospital Stay Data Consultations 10/29/25 20:21 ED Decision to Admit Stat Diagnostic Imagining Performed 10/29/25 20:24 US venous doppler LE BI Stat 10/30/25 13:41 CT Abdomen and Pelvis [CT abd pelvis wo con] Urgent Pending Results Patient Have Any Pending Studies at Discharge: No Discharge Instructions Given to Patient (Per Discharging Provider) You were treated for mild rhabdomyolysis (muscle injury) and adrenal crisis - I agree it sounds like it was triggered by a viral infection Continue taking your usual meds but increase your hydrocortisone to double dose for five days (40 mg in AM and 20 mg in afternoon) to provide some "stress dose" It was a pleasure taking care of you in the hospital, Ivana Maohney MD Total Time Total Time Spent Total Time Spent (In Minutes): I personally spent: 35 minutes today on clinical care activities including: reviewing chart notes and vital signs reviewing labs reviewing studies discussion with lawn care technician examining and counseling the patient discharge instructions and orders documentation Coding Level of Care Code 00831 INP/OBS DISCH >30 MIN Diagnoses Adrenal crisis E27.2 Rhabdomyolysis M62.82 Elevated troponin R79.89 Bipolar disorder F31.9 Hypopituitarism E23.0 Diabetes insipidus E23.2 Psychogenic nonepileptic seizure F44.5 Seizure disorder G40.909 Chronic respiratory failure with hypoxia J96.11 COPD (chronic obstructive pulmonary disease) J44.9 Back pain at L4-L5 level M54.50
[2025-11-01 13:29] VITALS: PULSE 100
--- NOTE | 2025-11-01 16:22 | Electrocardiogram Report ---
Test Reason : Blood Pressure : */* mmHG Vent. Rate : 114 BPM Atrial Rate : 114 BPM P-R Int : 142 ms QRS Dur : 84 ms QT Int : 338 ms P-R-T Axes : 67 -18 44 degrees QTcB Int : 465 ms Sinus tachycardia Otherwise normal ECG When compared with ECG of 29-Oct-2025 17:51, (unconfirmed) Premature supraventricular complexes are no longer Present Confirmed by Bo Edwards ([id number]) on 11/01/2025 4:22:07 PM Referred By: REFERRED SELF Confirmed By: Bo Edwards
--- NOTE | 2025-11-01 16:28 | Electrocardiogram Report ---
Test Reason : Blood Pressure : */* mmHG Vent. Rate : 121 BPM Atrial Rate : 121 BPM P-R Int : 146 ms QRS Dur : 84 ms QT Int : 314 ms P-R-T Axes : 61 -29 41 degrees QTcB Int : 445 ms Sinus tachycardia with Premature supraventricular complexes Otherwise normal ECG When compared with ECG of 28-Sep-2025 20:35, Premature supraventricular complexes are now Present Vent. rate has increased by 58 bpm Nonspecific T wave abnormality no longer evident in Anterior leads Confirmed by Bo Edwards ([id number]) on 11/01/2025 4:27:50 PM Referred By: REFERRED SELF Confirmed By: Bo Edwards
[2025-11-04 20:28] LABS: Anti Nuclear Antibody Screen NEGATIVE (NEGATIVE)
== END 2025-11-01 14:56 | disposition home health service (06) | DRG 644 ==
LOC: ED 17:15 → SUATTDRO 21:08 → EDINP 21:08 → 2S 22:03

== ENCOUNTER 2025-11-07 09:39 | Observation (INO) ==
--- NOTE | 2025-11-07 10:18 | XRay Report ---
SINGLE VIEW CHEST CLINICAL HISTORY: Generalized weakness. FINDINGS: An AP, portable, upright chest radiograph is compared to study dated 10/29/2025. Correlation is made with chest CT dated 06/12/2025. An electronic device projects over the left lower chest. The heart is enlarged noting atherosclerotic calcification of the thoracic aorta. A left atrial occlusion device is in place. The pulmonary vasculature is noncongested. Atelectasis is noted at the lung base s. The lungs and pleural spaces are otherwise clear. No pneumothorax is seen. The skeletal structures are osteopenic. The bony thorax is grossly intact. IMPRESSION: Cardiomegaly with no active disease in the chest. ACT 112: Negative or not required by law. Electronically signed by: Galindo Mejia M.D. 11/07/2025 10:17 AM
--- NOTE | 2025-11-07 10:22 | Emergency Department Note ---
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 He had presented there today for a palliative discussion. Patient was noted there to be weak and lethargic and have a pulse of about 118 and a blood pressure in the 50s systolic. Brought here to the ER for further evaluation. Patient is awake and alert calm and resting upon evaluation. States he has chronic back pain. Denies new falls. States he feels tired. States he did take his morning medications including a steroid. Does report that he was positive for adenovirus last week. Denies nausea or shortness of breath at this time. PAST MEDICAL HISTORY: As noted above MEDICATIONS: Reviewed home medication list and the patient is compliance including with his oxycodone. SOCIAL HISTORY: Non-smoker PHYSICAL EXAM: GENERAL: alert and oriented in no acute distress on stretcher resting with eyes closed. Arousable to verbal stimuli. Head: normocephalic and atraumatic EYES: No injection, discharge or icterus. PERRL, EOMI. NECK: Trachea midline. Supple. ENT: Mucous membranes pink and moist. Pharynx without erythema or exudate. LUNGS: Airway patent. No retractions. Breath sounds clear with good air entry bilaterally. HEART: Regular rate and rhythm. No chest wall tenderness ABDOMEN: Soft and non-tender, without guarding or rebound. No masses appreciable. SKIN: Acyanotic, warm, dry, without rashes EXTREMITIES: Without swelling, tenderness or deformity NEUROLOGICAL: No focal deficits moving all extremities. No aphasia. No facial droop or slurred speech. EK beats minute sinus tachycardia. No PVC or PAC. No acute ST segment elevation or depression with a QTc of 478. CONTINUOUS CARDIAC MONITORING: was ordered and showed a heart rate of 90s to 110s bpm in normal sinus rhythm to sinus tachycardia Patient's laboratory studies and imaging reviewed. Differential includes Infection, dehydration, metabolic abnormality, hypo/hyperglycemia, electrolyte disturbance, anemia, hypoxia, cardiac sources, intracerebral event, toxicologic, neurologic, as well as other pathologies. IMPRESSION/MEDICAL DECISION MAKING: Patient with some generalized weakness. Hypotensive and radiation oncology had appointments but not hypotensive. Borderline tachycardic 90s to 100s. Is on multiple medications. Complex history reviewed. Question of some component could be adrenal crisis. Laboratory studies are sent. Lactate and cultures sent and broad workup. Will obtain a CT of the head given his generalized weakness although he is easily arousable and nonfocal as well as a CT abdomen pelvis he is complain of back pain. Chest x-ray without acute pathology per radiology report. Reports he is positive for adenovirus last week but testing in the computer shows this was negative. Laboratory studies here today with a mildly elevated lactate 2.5. Given gentle fluid hydration. No significant electrolytes abnormalities. Procalcitonin not elevated. Urinalysis not indicative of significant infection. CT head per radiology report without significant abnormality. CT abdomen pelvis without acute findings noted. Trace pleural effusions and a few lower lobe pulmonary nodules are noted for follow-up purposes. Patient not hypotensive or hypoxic here. Still endorses significant generalized weakness. Given a small amount of IV fluid here but does not seem to have an elevated CK or troponin today. Not sure this represents a true adrenal crisis. Free T4 within normal limits. UDS positive for opiates and he is prescribed these. Discussed with patient the findings. He still endorses significant generalized weakness. Seems quite drowsy. I do not see that there is much of a negative to giving an extra dose of hydrocortisone here although again not clear that he is in adrenal crisis. Will have the hospitalist evaluate for further care given his weakness as I do not see him safe for discharge at this point with his level of drowsiness. DIAGNOSIS: Weakness, drowsiness DISPOSITION: Hospitalist will evaluate Patient was agreeable with this plan. Past Med/Surg History Problem List (Updated 11/07/25 @ 14:03 by Travis Tillman M.D.) Weakness (Acute) Lethargy Adrenal crisis Non-ST elevation [place] (NSTEMI) (Acute) Hypopituitarism (Acute) Rhabdomyolysis (Acute) Elevated troponin Rhabdomyolysis Adjustment disorder with mixed anxiety and depressed mood Palliative care by specialist QUENTIN (acute kidney injury) (Acute) Hypomagnesemia (Acute) Ambulatory dysfunction (Acute) Nonadherence to medication PTSD (post-traumatic stress disorder) Diabetes insipidus Chronic anemia (Acute) Vision loss, left eye Entered 05/2025 Hypopituitarism Psychogenic nonepileptic seizure Asthma Presbyopia of both eyes Epiretinal membrane (ERM) of left eye Ocular hypertension Demyelinating disease Esophageal dysphagia 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 tested positive in Aug 2023 [place] Current use of proton pump inhibitor Chronic migraine without aura or status migrainosus Ulcerative colitis Mixed hyperlipidemia Lumbar stenosis with neurogenic claudication Essential tremor Mitral regurgitation Anti-cyclic citrullinated peptide antibody positive Internal hemorrhoids Prostate mass benign Medical History Lethargy Chronic respiratory failure with hypoxia Acute hypokalemia Hypomagnesemia Atrial tachycardia Calcium nephrolithiasis Seizure disorder Intractable back pain Bilateral nephrolithiasis Compartment syndrome of lower extremity Venous stasis ulcers Chronic venous insufficiency Secondary cataract of left eye with vision obscured Combined form of senile cataract of right eye CHF (congestive heart failure) COPD (chronic obstructive pulmonary disease) Arachnoid cyst of posterior cranial fossa BPH with obstruction/lower urinary tract symptoms Right leg pain Blood loss anemia (06/2025) Therapeutic opioid-induced constipation (OIC) Bipolar 1 disorder Back pain at L4-L5 level Hypokalemia Frequent falls Generalized weakness Generalized pain Hypomagnesemia Hyperphosphatemia CHI (closed head injury) Kidney stones History of pneumonia (03/2025) Ocular hypertension Ulcerative colitis Mixed hyperlipidemia Lumbar stenosis with neurogenic claudication Idiopathic polyneuropathy Essential tremor Demyelinating disease Compartment syndrome of lower extremity (02/2025) Chronic venous insufficiency Depression with anxiety On home O2 History of recent hospitalization Urinary tract obstruction due to kidney stone LPRD (laryngopharyngeal reflux disease) Uncontrolled type 2 diabetes mellitus with hyperglycemia Hypothyroidism Non-occlusive coronary artery disease Chronic narcotic dependence Restrictive lung disease Obstructive sleep apnea Pituitary hypogonadism Secondary adrenal insufficiency Transient alteration of awareness Migraine Growth hormone deficiency Closed fracture of right fibula with malunion Shortness of breath Obesity CKD (chronic kidney disease), stage III Atrial fibrillation (02/15/24) Panhypopituitarism Syncope and collapse Recurrent seizures Pituitary diabetes insipidus Spondylolysis, lumbar region Right lumbar radiculopathy HTN (hypertension) Adrenal insufficiency Hyperactive gag reflex Epidural lipomatosis Chronic left sacroiliac pain Presence of cardiac device Cerebral concussion Orthostatic hypotension Sensorineural hearing loss of both ears Rectal bleeding History of COVID-19 Mitral valve regurgitation Vertigo Lower extremity edema Bilateral hand pain Pituitary neoplasm Bladder mass Surgical History Hx of flexible sigmoidoscopy (07/03/25) History of open reduction and internal fixation (ORIF) procedure (2009) Presence of Watchman left atrial appendage closure device (02/2024) History of arthroplasty of left knee (2014) S/P TURP (status post transurethral resection of prostate) History of lumbar fusion (07/2022) History of cardiac cath (07/2021) S/P epidural steroid injection History of lithotripsy History of bladder surgery History of prostate surgery (2016) History of colonoscopy History of esophagogastroduodenoscopy (EGD) History of tooth extraction History of wisdom tooth extraction History of brain surgery (2017) Family History Grandmother (Paternal) Family history of diabetes mellitus Aunt Family history of diabetes mellitus Uncle Family history of diabetes mellitus Father Prostate cancer Heart disease Osteoarthritis Mother Cardiac disorder Grandmother (Maternal) Myocardial infarction Other Asthma Cancer Hypertension No family history of adverse response to anesthesia No family history of bleeding disorder Stroke Denies family history of Ovarian cancer Breast cancer Colorectal cancer Social History Smoking Status: Never smoker Tobacco Type: Smokeless Tobacco (Dip or Chew) Second Hand Exposure: No; Do You Dip or Chew Tobacco: No; Hx Alcohol Use: No Hx Substance Use: No Preferred Language: Congolese Communication Ability: Effective Communication Ability Comment: Unable to obtain due to patient condition. 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 caffeine: No (1/2 20 oz bottle of mountain dew. ) during the past year weight has: increased > 10 lbs Physical Activity Frequency: Daily Physical Activity Frequency Comment: walking, 1.5 miles daily. Seatbelt Use: always Do you think of yourself as: straight/heterosexual Gender Identity: Male Assistive Devices: Walker Allergies Allergies Allergy/AdvReac Type Severity Reaction Status Date / Time clindamycin Allergy Intermediate SWELLING Verified 11/06/25 10:25 Iodinated Contrast Media Allergy Intermediate face/eye Verified 11/06/25 10:25 swelling Quinolones Allergy Intermediate HIVES Verified 11/06/25 10:25 metformin AdvReac Unknown lactic Verified 11/06/25 10:25 acidosis Home Meds Home Medications Medication Instructions Recorded Confirmed glucagon 3 mg/actuation nasal 3 mg intranasal DIRECTED PRN 04/06/24 11/07/25 spray (Baqsimi) Severe Hypoglycemia Oxygen Home 01/30/25 11/06/25 somatropin 5 mg/1.5 mL (3.3 mg/mL) 3 mg subcut QPM 05/29/25 11/07/25 subcutaneous pen injector (Norditropin FlexPro) lacosamide 150 mg tablet 150 mg PO BID 08/06/25 11/07/25 ramelteon 8 mg tablet 8 mg PO QPM 08/06/25 11/07/25 divalproex 500 mg tablet,extended 1,000 mg PO QAM 09/11/25 11/07/25 release 24 hr insulin glargine 100 unit/mL (3 12 unit subcut HS 09/14/25 11/07/25 mL) subcutaneous pen (Lantus Solostar U-100 Insulin) arformoterol 15 mcg/2 mL solution 2 ml inhalation BID PRN Shortness 10/29/25 11/07/25 for nebulization (Brovana) Of Breath Or Wheezing budesonide 0.5 mg/2 mL suspension 0.5 mg inhalation AMHS 10/29/25 11/07/25 for nebulization duloxetine 60 mg capsule,delayed 60 mg PO DAILY 11/05/25 11/07/25 release melatonin 5 mg capsule 0 mg PO HS PRN Sleep 11/05/25 11/07/25 oxycodone 5 mg tablet 5 mg PO Q6H PRN Pain 11/05/25 11/07/25 aspirin 81 mg tablet 81 mg PO DAILY 11/06/25 11/07/25 gabapentin 300 mg capsule 300 mg PO DAILY 11/06/25 11/07/25 meclizine 25 mg tablet 25 mg PO DAILY PRN Dizziness Or 11/06/25 11/07/25 Vertigo prazosin-polythiazide 5 mg-0.5 mg 0 cap PO UD 11/06/25 11/07/25 capsule pregabalin 50 mg capsule (Lyrica) 50 mg PO DAILY 11/06/25 11/07/25 risperidone 2 mg tablet 2 mg PO DAILY 11/06/25 11/07/25 Previous Rx's Medication Instructions Recorded fluticasone propionate 50 1 spray intranasal HS PRN allergy 03/16/23 mcg/actuation nasal symptoms #16 grams spray,suspension (Flonase Allergy Relief) FreeStyle Rosalie 2 Alcova (flash #1 ea 05/13/23 glucose scanning reader) blood sugar diagnostic (TabtorTouch #150 ea 11/22/23 Verio test strips) blood-glucose meter (TabtorTouch #1 ea 11/22/23 Verio Reflect Meter) lancets 33 gauge (TabtorTouch Delica #150 ea 11/22/23 Plus Lancet) ipratropium 0.5 mg-albuterol 3 mg 3 ml inhalation QID PRN wheezing 07/31/24 (2.5 mg base)/3 mL nebulization #90 mL soln nebulizers (Compact Compressor #1 ea 07/31/24 Nebulizer) acetylcysteine 200 mg/mL (20 %) 2 ml inhalation BID PRN Chest 03/26/25 solution congestion #100 mL sodium chloride 7 % for 1 inh inhalation BID #240 mL 03/26/25 nebulization FreeStyle Rosalie 2 Sensor (flash #6 ea 05/06/25 glucose sensor) naloxone 4 mg/actuation nasal 1 spray intranasal ONCE PRN opioid 05/18/25 spray (Narcan) overdose #2 ea FreeStyle Rosalie 2 Plus Sensor #6 ea 06/04/25 (blood-glucose sensor) albuterol sulfate 90 mcg/actuation 2 inh inhalation Q6H PRN shortness 07/01/25 aerosol inhaler (Ventolin HFA) of breath or wheezing #6.7 grams propranolol 120 mg capsule,24 120 mg PO HS #90 caps 08/12/25 hr,extended release ascorbic acid (vitamin C) 250 mg 250 mg PO BID #60 tabs 11/04/25 tablet desmopressin 0.2 mg tablet 0.4 mg (2 x 0.2 mg) PO BID #120 11/04/25 tabs docusate sodium 100 mg capsule 100 mg PO BID 30 days #60 caps 11/04/25 levothyroxine 200 mcg tablet 200 mcg PO QAM #90 tabs 11/04/25 magnesium oxide 400 mg (241.3 mg 400 mg PO HS #28 tabs 11/04/25 magnesium) tablet vitamin B complex (Vitamins B 1 cap PO QAM #30 caps 11/04/25 Complex capsule) hydrocortisone 10 mg tablet 20 mg (2 x 10 mg) PO QAM #90 tabs 11/05/25 rimegepant 75 mg disintegrating 75 mg PO DAILY PRN migraine 11/05/25 tablet (Nurtec ODT) headache #10 tabs cholecalciferol (vitamin D3) 50 50 mcg PO QPM #90 caps 11/06/25 mcg (2,000 unit) capsule clopidogrel 75 mg tablet 75 mg PO QPM #90 tabs 11/06/25 dutasteride 0.5 mg capsule 0.5 mg PO QAM #90 caps 11/06/25 famotidine 20 mg tablet 20 mg PO QAM #90 tabs 11/06/25 ferrous sulfate 325 mg (65 mg 325 mg PO BID #90 tabs 11/06/25 iron) tablet levetiracetam 250 mg tablet 250 mg PO BID #90 tabs 11/06/25 lisinopril 10 mg tablet 80 mg (8 x 10 mg) PO QPM #112 tabs 11/06/25 Results & Data (ED) Vital Signs Vital Signs - 24 hr 11/07/25 09:44 11/07/25 09:44 11/07/25 09:48 Temperature 36.8 C Temperature Source Oral Pulse Rate 106 H 106 H 97 H Pulse Rate [Apical] Pulse Rhythm Regular Regular Pulse Rhythm [Apical] Pulse Strength Normal Pulse Strength [Apical] Respiratory Rate 24 24 Respiratory Effort / Characteristics Non-Labored Spontaneous Respiratory Depth Normal Respiratory Pattern Regular Blood Pressure 103/75 Blood Pressure [Right Arm] Blood Pressure Mean 84 Blood Pressure Mean [Right Arm] Blood Pressure Position Lying Blood Pressure Position [Right Arm] Pulse Oximetry 96 96 Oxygen Delivery Method Room Air Room Air Sepsis Recent Fever Within 48 Hours No Sepsis New/Unexplained Change in Mental Status No Sepsis Action Taken by Nursing No Action Required 11/07/25 09:50 11/07/25 09:50 11/07/25 12:00 Temperature 36.8 C Temperature Source Oral Pulse Rate Pulse Rate [Apical] 106 H 79 Pulse Rhythm Pulse Rhythm [Apical] Regular Regular Pulse Strength Pulse Strength [Apical] Normal Normal Respiratory Rate 24 22 Respiratory Effort / Characteristics Non-Labored Spontaneous Non-Labored Spontaneous Respiratory Depth Normal Normal Respiratory Pattern Regular Regular Blood Pressure Blood Pressure [Right Arm] 103/75 144/77 H Blood Pressure Mean Blood Pressure Mean [Right Arm] 84 99 Blood Pressure Position Blood Pressure Position [Right Arm] Lying Lying Pulse Oximetry 96 96 96 Oxygen Delivery Method Room Air Room Air Room Air Sepsis Recent Fever Within 48 Hours Sepsis New/Unexplained Change in Mental Status Sepsis Action Taken by Nursing Laboratory Data 11/07/25 10:00 11/07/25 10:00 Lab Results 11/07/25 11/07/25 11/07/25 Range/Units 10:00 10:13 10:22 WBC 9.22 (4.8-10.8) K/ul RBC 4.28 L (4.70-6.10) M/uL Hgb 13.3 L (14.0-18.0) g/dL POC Hgb 12.6 L (14.0-18.0) g/dl Hct 37.6 L (42.0-52.0) % POC Hct 37 L (42-52) % MCV 87.9 (80.0-100.0) fL MCH 31.1 (25.0-34.0) pg MCHC 35.4 (32.0-36.0) g/dL RDW Std Deviation 44.3 (36.4-46.3) fL RDW Coeff of Yanira 14.0 (11.5-14.5) % Plt Count 193 (130-400) K/uL MPV 8.8 L (9.4-12.4) fL Immature Gran % (Auto) 2.3 % Neut % (Auto) 55.7 % Lymph % (Auto) 32.1 % Coffee % (Auto) 7.3 % Eos % (Auto) 2.3 % Baso % (Auto) 0.3 % Neut # (Auto) 5.14 (1.40-6.50) K/uL Lymph # (Auto) 2.96 (1.20-3.40) K/uL Coffee # (Auto) 0.67 H (0.11-0.59) K/uL Eos # (Auto) 0.21 (0.00-0.50) K/uL Baso # (Auto) 0.03 (0.00-0.20) K/uL Immature Gran # (Auto) 0.21 H (0.01-0.20) K/uL PT Cancelled INR Cancelled POC Sodium 139 (135-144) mmol/L Sodium 139 (136-145) mmol/L POC Potassium 3.8 (3.3-5.0) mmol/L Potassium 3.6 (3.5-5.1) mmol/L POC Chloride 99 L (101-112) mmol/L Chloride 101 (98-107) mmol/L Carbon Dioxide 26 (21-32) mmol/L POC Total CO2 28 (24-31) mmol/L Anion Gap 12 H (3-11) POC Anion Gap 18.0 (16-25) mmol/L POC BUN 5 L (7-18) mg/dl BUN 7 (6-23) mg/dl Creatinine 1.10 (0.6-1.4) mg/dl POC Creatinine 1.2 (0.6-1.3) mg/dl Est Cr Clr Drug Dosing 94.6 ml/min eGFR 78.30 BUN/Creatinine Ratio 6.4 L (10-20) Glucose 120 H (70-99(Fasting)) mg/dl POC Glucose (other) 114 H (70-99) mg/dl Lactate 2.5 H* (0.4-2.0) mmol/L Calcium 9.6 (8.6-10.3) mg/dl POC Ioniz Calcium Jeny 1.17 (1.12-1.32) mmol/l Magnesium 1.7 (1.7-2.4) mg/dl Total Bilirubin 0.5 (0.2-1.0) mg/dl AST 23 (13-39) U/L ALT 33 (7-52) U/L Alkaline Phosphatase 57 (34-104) U/L Total Creatine Kinase 42 (30-223) U/L Troponin I High Sens 11.4 (0-20) pg/ml Total Protein 6.4 (6.0-8.3) gm/dl Albumin 4.0 (3.4-5.0) gm/dl Globulin 2.4 L (2.5-4.0) gm/dl Albumin/Globulin Ratio 1.7 (0.9-2) Procalcitonin 0.02 (0-0.5) ng/ml TSH 0.123 L (0.300-4.500) uIu/ml Free T4 1.17 (0.61-1.60) ng/dl Random Cortisol < 0.40 mcg/dl Urine Color Dark Yellow Urine Appearance Cloudy A (Clear) Urine pH 5.5 (4.5-7.5) Ur Specific Oran 1.018 (1.000-1.030) Urine Protein 1+ H (Negative) Urine Glucose (UA) Negative (Negative) Urine Ketones Trace H (Negative) Urine Blood Trace H (Negative) Urine Nitrite Negative (Negative) Urine Bilirubin Negative (Negative) Urine Urobilinogen Negative (Negative) Ur Leukocyte Esterase Negative (Negative) Urine WBC (Auto) 0-5 (0-5) /hpf Urine RBC (Auto) 0-2 (0-2) /hpf U Hyaline Cast (Auto) >20 H (0-2) /lpf U Epithel Cells (Auto) 6-10 H (0-2) /hpf Urine Bacteria (Auto) None Seen (None Seen) Urine Mucus Present A (None Prsent) Urine Comment Urine Opiates Screen Pos H (Neg) Ur Methadone, Qual Neg (Neg) Urine Fentanyl Screen Neg (Neg) Urine Barbiturates Neg (Neg) Ur Phencyclidine (PCP) Neg (Neg) U Amphetamin/Meth Scrn Neg (Neg) MDMA (Ecstasy) Screen Neg (Neg) U Benzodiazepines Scrn Neg (Neg) Ur Cocaine Metabolite Neg (Neg) U Marijuana (THC) Screen Neg (Neg) 11/07/25 Range/Units 11:54 WBC (4.8-10.8) K/ul RBC (4.70-6.10) M/uL Hgb (14.0-18.0) g/dL POC Hgb (14.0-18.0) g/dl Hct (42.0-52.0) % POC Hct (42-52) % MCV (80.0-100.0) fL MCH (25.0-34.0) pg MCHC (32.0-36.0) g/dL RDW Std Deviation (36.4-46.3) fL RDW Coeff of Yanira (11.5-14.5) % Plt Count (130-400) K/uL MPV (9.4-12.4) fL Immature Gran % (Auto) % Neut % (Auto) % Lymph % (Auto) % Coffee % (Auto) % Eos % (Auto) % Baso % (Auto) % Neut # (Auto) (1.40-6.50) K/uL Lymph # (Auto) (1.20-3.40) K/uL Coffee # (Auto) (0.11-0.59) K/uL Eos # (Auto) (0.00-0.50) K/uL Baso # (Auto) (0.00-0.20) K/uL Immature Gran # (Auto) (0.01-0.20) K/uL PT INR POC Sodium (135-144) mmol/L Sodium (136-145) mmol/L POC Potassium (3.3-5.0) mmol/L Potassium (3.5-5.1) mmol/L POC Chloride (101-112) mmol/L Chloride (98-107) mmol/L Carbon Dioxide (21-32) mmol/L POC Total CO2 (24-31) mmol/L Anion Gap (3-11) POC Anion Gap (16-25) mmol/L POC BUN (7-18) mg/dl BUN (6-23) mg/dl Creatinine (0.6-1.4) mg/dl POC Creatinine (0.6-1.3) mg/dl Est Cr Clr Drug Dosing ml/min eGFR BUN/Creatinine Ratio (10-20) Glucose (70-99(Fasting)) mg/dl POC Glucose (other) (70-99) mg/dl Lactate 2.3 H* (0.4-2.0) mmol/L Calcium (8.6-10.3) mg/dl POC Ioniz Calcium Jeny (1.12-1.32) mmol/l Magnesium (1.7-2.4) mg/dl Total Bilirubin (0.2-1.0) mg/dl AST (13-39) U/L ALT (7-52) U/L Alkaline Phosphatase (34-104) U/L Total Creatine Kinase (30-223) U/L Troponin I High Sens (0-20) pg/ml Total Protein (6.0-8.3) gm/dl Albumin (3.4-5.0) gm/dl Globulin (2.5-4.0) gm/dl Albumin/Globulin Ratio (0.9-2) Procalcitonin (0-0.5) ng/ml TSH (0.300-4.500) uIu/ml Free T4 (0.61-1.60) ng/dl Random Cortisol mcg/dl Urine Color Urine Appearance (Clear) Urine pH (4.5-7.5) Ur Specific Oran (1.000-1.030) Urine Protein (Negative) Urine Glucose (UA) (Negative) Urine Ketones (Negative) Urine Blood (Negative) Urine Nitrite (Negative) Urine Bilirubin (Negative) Urine Urobilinogen (Negative) Ur Leukocyte Esterase (Negative) Urine WBC (Auto) (0-5) /hpf Urine RBC (Auto) (0-2) /hpf U Hyaline Cast (Auto) (0-2) /lpf U Epithel Cells (Auto) (0-2) /hpf Urine Bacteria (Auto) (None Seen) Urine Mucus (None Prsent) Urine Comment Urine Opiates Screen (Neg) Ur Methadone, Qual (Neg) Urine Fentanyl Screen (Neg) Urine Barbiturates (Neg) Ur Phencyclidine (PCP) (Neg) U Amphetamin/Meth Scrn (Neg) MDMA (Ecstasy) Screen (Neg) U Benzodiazepines Scrn (Neg) Ur Cocaine Metabolite (Neg) U Marijuana (THC) Screen (Neg) Administered Medications Sodium Chloride (Nss) 1,000 mls @ 125 mls/hr IV .Q8H OBDULIO Stop: 11/10/25 12:59 Last Admin: 11/07/25 14:01 Dose: 125 mls/hr Documented By: asm Discontinued Medications Hydrocortisone Sodium Succinate (Hydrocortisone Sod Succinate 100 Mg/2 Ml Vial) 50 mg IV NOW STA Stop: 11/07/25 11:55 Last Admin: 11/07/25 12:12 Dose: 50 mg Documented By: ABRAHAM Sodium Chloride (Nss) 500 mls @ 999 mls/hr IV .Q31M ONE Stop: 11/07/25 10:57 Last Infusion: 11/07/25 11:45 Dose: Infused Documented By: Admin: 11/07/25 10:46 Dose: 999 mls/hr Documented By: MPD Imaging Data Radiologist's Impression: Chest X-Ray 11/07/25 09:43 SINGLE VIEW CHEST CLINICAL HISTORY: Generalized weakness. FINDINGS: An AP, portable, upright chest radiograph is compared to study dated 10/29/2025. Correlation is made with chest CT dated 06/12/2025. An electronic device projects over the left lower chest. The heart is enlarged noting atherosclerotic calcification of the thoracic aorta. A left atrial occlusion device is in place. The pulmonary vasculature is noncongested. Atelectasis is noted at the lung bases. The lungs and pleural spaces are otherwise clear. No pneumothorax is seen. The skeletal structures are osteopenic. The bony thorax is grossly intact. IMPRESSION: Cardiomegaly with no active disease in the chest. ACT 112: Negative or not required by law. Electronically signed by: Galindo Mejia M.D. 11/07/2025 10:17 AM Abdomen/Pelvis CT 11/07/25 10:16 CT SCAN OF THE ABDOMEN AND PELVIS WITHOUT IV CONTRAST CLINICAL HISTORY: Weakness. Back pain. COMPARISON STUDY: Abdominal CT dated 10/30/2025. Chest CT dated 06/12/2005. TECHNIQUE: CT scan of the abdomen and pelvis is performed from the lung bases to the proximal femora. Images are reviewed in the axial, sagittal, and coronal planes. IV contrast was not administered for this examination. A dose lowering technique was utilized adhering to the principles of ALARA. FINDINGS: Lung bases: The heart is enlarged noting trace pericardial effusion. The coronary arteries are densely calcified. A left atrial occlusion devices in place. There are trace pleural effusions with dependent atelectasis. A 9 mm right lower lobe nodule image #6 and a 4 mm left lower lobe nodule on image #6 are indeterminant, and were not seen on the 06/12/[address] There are tiny calcified granulomas. A small hiatal hernia is observed. Liver: The unenhanced liver is enlarged, measuring 21.1 cm in length. Attenuation is diffusely diminished indicating steatosis. Fatty sparing is seen adjacent to the gallbladder fossa. There is no intrahepatic biliary ductal dilatation. Gallbladder: Unremarkable. Spleen: Normal in size and attenuation. Pancreas: The unenhanced pancreas is grossly unremarkable. Adrenal glands: Unremarkable. Kidneys: The unenhanced kidneys are normal in size and without hydronephrosis. There are at least 2 nonobstructing right renal calculi which measure up to 4 mm. No left renal calculi are identified and no ureteral stone is seen. There is no evidence of contour deforming renal mass lesion. Abdominal vasculature: The abdominal aorta is normal in course and caliber noting moderate to advanced atherosclerotic calcification. Bowel: There is mild colonic fecal retention. No bowel obstruction is seen. The appendix is well-visualized and normal. Peritoneum: There is no intraperitoneal free air or abdominal ascites. There is a small fat-containing umbilical hernia. Lymphadenopathy: None. Pelvic viscera: The prostate gland is diminutive and heterogeneous. The bladder is decompressed, and the wall appears thickened/trabeculated indicating chronic outlet obstruction. Skeletal structures: The skeletal structures are osteopenic. No lytic or blastic lesions are seen. Question early changes of avascular necrosis in the femoral heads. Spondylotic and postsurgical changes noted in the lumbosacral spine. IMPRESSION: 1. No acute infectious or inflammatory findings are identified in the abdomen or pelvis. 2. Cardiomegaly and trace pleural effusions. 3. There are right and left lower lobe pulmonary nodules which measure up to 9 mm. These are pathologically indeterminate, but were not seen on the 06/12/[address] These may be on an inflammatory basis, and a 3-4 month follow-up chest CT is recommended for reassessment. 4. The liver is enlarged and steatotic. 5. Right-sided nephrolithiasis. 6. Additional findings as detailed above. ACT 112: Positive. There are findings on this exam that require communication between the performing entity and the patient following Patient Test Result Information Act ([place] Act 112) guidelines. Electronically signed by: Galindo Mejia M.D. 11/07/2025 10:[address] 11/07/25 10:16 CT head/brain wo con CLINICAL HISTORY: 55 years-old Male with weak, ams. Acute weakness with altered mental status TECHNIQUE: Multiple axial CT images of the head were obtained without contrast. A dose lowering technique was utilized adhering to the principles of ALARA. CT DOSE: 2402.5 mGy.cm COMPARISON: Head CT 09/24/2025 FINDINGS: No acute intracranial hemorrhage, midline shift, intracranial mass, hydrocephalus, territorial ischemia or abnormal extra-axial collection. 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 Mild involutional changes again noted. Mildly motion degraded exam. Partially empty sella. The calvarium is intact. Minimal mucosal thickening of the paranasal sinuses. The mastoid air cells are clear. Unremarkable soft tissues. Prior bilateral lens repair. IMPRESSION: No acute intracranial abnormality. ACT 112: Negative or not required by law. The above report was generated using voice recognition software. It may contain grammatical, syntax or spelling errors. Electronically signed by: Bean Tolentino M.D. 11/07/2025 10:56 AM Discharge Plan Visit Data Chief Complaint: Hypotension Stated Complaint: Altered Mental Status, code purple ED Provider: Travis Tillman Discharge Problem: Weakness Patient Disposition: Being Evaluated by Hospitalist Condition: Fair Forms Stand Alone Forms: [facility] [place] [employer] Prescriptions Prescriptions: No Action fluticasone propionate [Flonase Allergy Relief] 50 mcg/actuation spray,suspension 1 spray intranasal HS PRN (Reason: allergy symptoms) Qty: 16 0RF Rx Instructions: administer into each nostril (DME) OneTouch Verio test strips Strip See Rx Instructions .MEDSUPPLY Qty: 150 5RF Rx Instructions: check blood sugars 4 times a day (DME) blood-glucose meter [OneTouch Verio Reflect Meter] Misc See Rx Instructions miscellaneous .MEDSUPPLY Qty: 1 0RF Rx Instructions: As directed (DME) lancets [OneTouch Delica Plus Lancet] 33 gauge misc See Rx Instructions .MEDSUPPLY Qty: 150 5RF Rx Instructions: As directed check blood sugars 4 times a day (DME) Oxygen Home Liters Per Minute See Rx Instructions .Route Rx Instructions: 4 L o2 via NC As directed, (DME) FreeStyle Rosalie 2 Sensor Kit See Rx Instructions .Route Qty: 6 3RF Rx Instructions: Change every 14 days (DME) FreeStyle Rosalie 2 Plus Sensor Device See Rx Instructions .Route Qty: 6 3RF Rx Instructions: change every 15 days propranolol 120 mg capsule,extended release 24hr 120 mg PO HS Qty: 90 3RF desmopressin 0.2 mg tablet 0.4 mg PO BID Qty: 120 5RF magnesium oxide 400 mg (241.3 mg magnesium) tablet 400 mg PO HS Qty: 28 0RF Hold Instructions: hold until diarrhea resolved - magnesium supplement can cause diarrhea docusate sodium 100 mg capsule 100 mg PO BID 30 Days Qty: 60 1RF Patient Comments: 09/14- otc unable to verify vitamin B complex [Vitamins B Complex] Capsule 1 cap PO QAM Qty: 30 0RF ascorbic acid (vitamin C) 250 mg tablet 250 mg PO BID Qty: 60 2RF levothyroxine 200 mcg tablet 200 mcg PO QAM Qty: 90 3RF levetiracetam 250 mg tablet 250 mg PO BID Qty: 90 3RF cholecalciferol (vitamin D3) 50 mcg (2,000 unit) capsule 50 mcg PO QPM Qty: 90 1RF clopidogrel 75 mg tablet 75 mg PO QPM Qty: 90 0RF dutasteride 0.5 mg capsule 0.5 mg PO QAM Qty: 90 2RF famotidine 20 mg tablet 20 mg PO QAM Qty: 90 0RF ferrous sulfate 325 mg (65 mg iron) tablet 325 mg PO BID Qty: 90 1RF (DME) FreeStyle Rosalie 2 Alcova Misc See Rx Instructions .Route Qty: 1 0RF Rx Instructions: Check blood glucose before each meal meclizine 25 mg tablet 25 mg PO DAILY PRN (Reason: Dizziness Or Vertigo) aspirin 81 mg tablet 81 mg PO DAILY prazosin-polythiazide 5-0.5 mg capsule 0 cap PO UD Patient Comments: 11/07- no fill history unable to verify gabapentin 300 mg capsule 300 mg PO DAILY risperidone 2 mg tablet 2 mg PO DAILY lisinopril 10 mg tablet 80 mg PO QPM Qty: 112 0RF Rx Instructions: === PLEASE VERIFY DOSE IN OFFICE-patient reports he is taking 80 mg of lisinopril each evening pregabalin [Lyrica] 50 mg capsule 50 mg PO DAILY (DME) nebulizers [Compact Compressor Nebulizer] Misc See Rx Instructions .Route Qty: 1 0RF Rx Instructions: One compact compressor nebulizer. Use as directed. Please include tubing, mouth piece and cup. ipratropium-albuterol 0.5 mg-3 mg(2.5 mg base)/3 mL solution for nebulization 3 ml inhalation QID PRN (Reason: wheezing) Qty: 90 0RF albuterol sulfate [Ventolin HFA] 90 mcg/actuation HFA aerosol inhaler 2 inh inhalation Q6H PRN (Reason: shortness of breath or wheezing) Qty: 6.7 2RF sodium chloride 7 % solution for nebulization 1 inh inhalation BID Qty: 240 3RF acetylcysteine 200 mg/mL (20 %) solution 2 ml inhalation BID PRN (Reason: Chest congestion) Qty: 100 6RF hydrocortisone 10 mg tablet 20 mg PO QAM Qty: 90 3RF Rx Instructions: 2 tabs (20mg) in AM, 1 tab (10mg) in 2 PM double dose in times of stress Nurtec ODT 75 mg tablet,disintegrating 75 mg PO DAILY PRN (Reason: migraine headache) Qty: 10 0RF melatonin 5 mg capsule 0 mg PO HS PRN (Reason: Sleep) Rx Instructions: 7.5 mg po hs PRN sleep duloxetine 60 mg capsule,delayed release(DR/EC) 60 mg PO DAILY Rx Instructions: Pt still taking this- See [facility] dc dates- oxycodone 5 mg tablet 5 mg PO Q6H PRN (Reason: Pain) Rx Instructions: Patient states this was prescribed by palliative med, Dr. Martinez Batrishimisidro 3 mg/actuation spray,non-aerosol 3 mg intranasal DIRECTED PRN (Reason: Severe Hypoglycemia) Rx Instructions: for treatment of severe hypoglycemia, second dose may be given if patient does not respond after 15 minutes . Per caregiver, pt has never has to use this medication. Norditropin FlexPro 5 mg/1.5 mL (3.3 mg/mL) pen injector 3 mg SQ QPM budesonide 0.5 mg/2 mL suspension for nebulization 0.5 mg inhalation [facility] arformoterol [Brovana] 15 mcg/2 mL solution for nebulization 2 ml inhalation BID PRN (Reason: Shortness Of Breath Or Wheezing) divalproex 500 mg tablet extended release 24 hr 1,000 mg PO QAM naloxone [Narcan] 4 mg/actuation spray,non-aerosol 1 spray intranasal ONCE PRN (Reason: opioid overdose) Qty: 2 2RF ramelteon 8 mg tablet 8 mg PO QPM lacosamide 150 mg tablet 150 mg PO BID Patient Comments: rx'd by Dr. Ordonez insulin glargine [Lantus Solostar U-100 Insulin] 100 unit/mL (3 mL) insulin pen 12 unit SUBCUT HS Referrals Referrals: Pro,Larry Criosstomo MD [Primary Care Provider] -
[2025-11-07 10:33] LABS: Hematocrit (blood only) 37.6 % (42.0-52.0); Hemoglobin 13.3 g/dL (14.0-18.0); Immature Granulocytes # (auto) 0.21 K/uL (0.01-0.20); Immature Granulocytes % (auto) 2.3 %; Mean Corpuscular Hemoglobin 31.1 pg (25.0-34.0); Mean Corpuscular Volume 87.9 fL (80.0-100.0); Platelet Count 193 K/uL (130-400); RDW Standard Deviation 44.3 fL (36.4-46.3); Red Blood Count 4.28 M/uL (4.70-6.10); White Blood Count 9.22 K/ul (4.8-10.8)
[2025-11-07] MEDS: SODIUM CHLORIDE 0.9% 500 ML IV ONE (10:46)
[2025-11-07 10:50] LABS: Appearance Urine Cloudy (Clear); Bacteria Urine Automated None Seen (None Seen); Cast Urine Automated >20 /lpf (0-2); Glucose Urine UA Negative (Negative); RBC Urine Automated 0-2 /hpf (0-2); WBC Urine Automated 0-5 /hpf (0-5)
[2025-11-07 10:52] LABS: Alanine Aminotransferase 33.0 U/L (7-52); Albumin Globulin Ratio 1.7 (0.9-2); Albumin Level 4.0 gm/dl (3.4-5.0); Alkaline Phosphatase 57.0 U/L (34-104); Anion Gap 12.0 (3-11); Bilirubin,Total 0.5 mg/dl (0.2-1.0); Blood Urea Nitrogen 7.0 mg/dl (6-23); Calcium 9.6 mg/dl (8.6-10.3); Carbon Dioxide 26.0 mmol/L (21-32); Chloride 101.0 mmol/L (98-107); Creatine Kinase 42.0 U/L (30-223); Creatinine Clr Calc Pharmacy 94.6 ml/min; Globulin 2.4 gm/dl (2.5-4.0); Glucose 120.0 mg/dl (70-99(Fasting)); Magnesium 1.7 mg/dl (1.7-2.4); Potassium 3.6 mmol/L (3.5-5.1); Sodium 139.0 mmol/L (136-145); Total Protein 6.4 gm/dl (6.0-8.3)
--- NOTE | 2025-11-07 10:58 | CT Scan Report ---
CT head/brain wo con CLINICAL HISTORY: 55 years-old Male with weak, ams. Acute weakness with altered mental status TECHNIQUE: Multiple axial CT images of the head were obtained without contrast. A dose lowering tech nique was utilized adhering to the principles of ALARA. CT DOSE: 2402.5 mGy.cm COMPARISON: Head CT 09/24/2025 FINDINGS: No acute intracranial hemorrhage, midline shift, intracranial mass, hydrocephalus, territorial ischem ia or abnormal extra-axial collection. 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 Mild involutional changes again noted. Mildly motion degraded exam. Parti ally empty sella. The calvarium is intact. Minimal mucosal thickening of the paranasal sinuses. The mastoid air cells are clear. Unremarkable soft tissues. Prior bilateral lens repair. IMPRESSION: No acute intracranial abnormality. ACT 112: Negative or not required by law. The above report was generated using voice recognition software. It may contain grammatical, syntax o r spelling errors. Electronically signed by: Bean Tolentino M.D. 11/07/2025 10:56 AM
--- NOTE | 2025-11-07 11:02 | CT Scan Report ---
CT SCAN OF THE ABDOMEN AND PELVIS WITHOUT IV CONTRAST CLINICAL HISTORY: Weakness. Back pain. COMPARISON STUDY: Abdominal CT dated 10/30/2025. Chest CT dated 06/12/2005. TECHNIQUE: CT scan of the abdomen and pelvis is performed from the lung bases to the proximal femora. Images are reviewed in the axial, sagittal, and coronal planes. IV contrast was not administered for this examination. A dose lowering technique was utilized adhering to the principles of ALARA. FINDINGS: Lung bases: The heart is enlarged noting trace pericardial effusion. The coronary arteries are densel y calcified. A left atrial occlusion devices in place. There are trace pleural effusions with depende nt atelectasis. A 9 mm right lower lobe nodule image #6 and a 4 mm left lower lobe nodule on image #6 are indeterminant, and were not seen on the 06/12/[address] There are tiny calcified granulomas. A small hiatal hernia is observed. Liver: The unenhanced liver is enlarged, measuring 21.1 cm in length. Attenuation is diffusely dimini shed indicating steatosis. Fatty sparing is seen adjacent to the gallbladder fossa. There is no intra hepatic biliary ductal dilatation. Gallbladder: Unremarkable. Spleen: Normal in size and attenuation. Pancreas: The unenhanced pancreas is grossly unremarkable. Adrenal glands: Unremarkable. Kidneys: The unenhanced kidneys are normal in size and without hydronephrosis. There are at least 2 n onobstructing right renal calculi which measure up to 4 mm. No left renal calculi are identified and no ureteral stone is seen. There is no evidence of contour deforming renal mass lesion. Abdominal vasculature: The abdominal aorta is normal in course and caliber noting moderate to advance d atherosclerotic calcification. Bowel: There is mild colonic fecal retention. No bowel obstruction is seen. The appendix is well-vis ualized and normal. Peritoneum: There is no intraperitoneal free air or abdominal ascites. There is a small fat-containin g umbilical hernia. Lymphadenopathy: None. Pelvic viscera: The prostate gland is diminutive and heterogeneous. The bladder is decompressed, and the wall appears thickened/trabeculated indicating chronic outlet obstruction. Skeletal structures: The skeletal structures are osteopenic. No lytic or blastic lesions are seen. Qu estion early changes of avascular necrosis in the femoral heads. Spondylotic and postsurgical changes noted in the lumbosacral spine. IMPRESSION: 1. No acute infectious or inflammatory findings are identified in the abdomen or pelvis. 2. Cardiomegaly and trace pleural effusions. 3. There are right and left lower lobe pulmonary nodules which measure up to 9 mm. These are patholog ically indeterminate, but were not seen on the 06/12/[address] These may be on an inflammatory ba sis, and a 3-4 month follow-up chest CT is recommended for reassessment. 4. The liver is enlarged and steatotic. 5. Right-sided nephrolithiasis. 6. Additional findings as detailed above. ACT 112: Positive. There are findings on this exam that require communication between the performing entity and the patient following Patient Test Result Information Act ([place] Act 112) guidelines. Electronically signed by: Galindo Mejia M.D. 11/07/2025 10:59 AM
[2025-11-07 11:07] LABS: Thyroid Stimulating Hormone 0.123 uIu/ml (0.300-4.500)
[2025-11-07 11:23] LABS: Amphetamines+Metham, Urine Neg (Neg); MDMA (Ecstacy), Urine Neg (Neg); Marijuana, Urine Neg (Neg)
[2025-11-07 11:38] LABS: T4 Free Thyroxine 1.17 ng/dl (0.61-1.60)
[2025-11-07] MEDS: HYDROCORTISONE SOD SUCCINATE 100 MG/2 ML VIAL IV STA (12:12)
[2025-11-07] MEDS ORDERED: ALBUTEROL HFA 8 GM INHALER INH PRN (12:41)
[2025-11-07] MEDS ORDERED: MECLIZINE HCL 25 MG TAB PO PRN (12:41)
[2025-11-07] MEDS ORDERED: ALBUT/IPRATROP 3MG/0.5MG NEB 3 ML VIAL INH PRN (12:46)
[2025-11-07] MEDS ORDERED: PHARMACY GLYCEMIC MGMT CONSULT PRN (12:54)
[2025-11-07] MEDS ORDERED: MELATONIN 3 MG TAB PO PRN (12:55)
[2025-11-07] MEDS ORDERED: ONDANSETRON INJ 2 MG/ML 2 ML VIAL IV PRN (12:57)
[2025-11-07] MEDS ORDERED: HYDROCORTISONE SOD SUCCINATE 100 MG/2 ML VIAL IV SCH (13:00)
--- NOTE | 2025-11-07 13:13 | History & Physical Report ---
Date of Service November 07, 2025 Assessment & Plan (1) AMS (altered mental status): Plan: -CT head negative -possible adrenal crisis vs med related etiology -treated with hydrocortisone IV 50mg IV Q6hrs and NS IVF -f/u cortisol level -BP currently stable -observation in PCU -PT evaluation (2) Hypopituitarism: Plan: -con't hydrocortisone -levothyroxine -desmopressin (3) Diabetes insipidus: Plan: -pharm consult for glycemic managment -lantus (4) Psychogenic nonepileptic seizure: Plan: -levetiracetam -divalproex -lacosamide (5) Asthma: Plan: -ipratropium prn (6) Intractable back pain: Plan: -pregabalin -oxycodone -palliative care consulted (7) Bipolar disorder: Plan: -risperidone (8) CHF (congestive heart failure): Plan: -aspirin -plavix -propranolol -lisinopril History of Present Illness Chief Complaint: AMS, Rapid Response at Radiation Oncology Primary Care Provider: Larry Amaral MD Pt is a 55 year old male with PMH hypopituitary is him with history of adrenal crisis, chronic back pain, PTSD, diabetes insipidus, bipolar disorder presenting here today as a rapid response from radiation oncology. He had presented there today for a palliative discussion due to his chronic pain. Patient was noted there to be weak and lethargic and have a pulse of about 118 and a blood pressure in the 50s systolic. A rapid response was then called and patient was brought to the ER. He was noted to be lethargic and drowsy. He head CT was negative. Pt has had history of adrenal crisis in the past and was given a dose of hydrocortisone IV along with IVF. Pt remained sluggish and was unable to be discharged home. He is also take opiod pain medications and it is not clear if he may be taking additional doses. He will be admitted for further treatment of possible adrenal crisis and additional observation for his AMS. Allergies Allergy/AdvReac Type Severity Reaction Status Date / Time clindamycin Allergy Intermediate SWELLING Verified 11/06/25 10:25 Iodinated Contrast Media Allergy Intermediate face/eye Verified 11/06/25 10:25 swelling Quinolones Allergy Intermediate HIVES Verified 11/06/25 10:25 metformin AdvReac Unknown lactic Verified 11/06/25 10:25 acidosis Home Medications Medication Instructions Recorded Confirmed Type fluticasone propionate 50 1 spray intranasal HS PRN allergy 03/16/23 11/07/25 Rx mcg/actuation nasal symptoms #16 grams spray,suspension (Flonase Allergy Relief) FreeStyle Rosalie 2 [place] (flash #1 ea 05/13/23 11/06/25 Rx glucose scanning reader) blood sugar diagnostic (OneTouch #150 ea 11/22/23 11/06/25 Rx Verio test strips) blood-glucose meter (OneTouch #1 ea 11/22/23 11/06/25 Rx Verio Reflect Meter) lancets 33 gauge (OneTouch Delica #150 ea 11/22/23 11/06/25 Rx Plus Lancet) glucagon 3 mg/actuation nasal 3 mg intranasal DIRECTED PRN 04/06/24 11/07/25 History spray (Baqsimi) Severe Hypoglycemia ipratropium 0.5 mg-albuterol 3 mg 3 ml inhalation QID PRN wheezing 07/31/24 11/07/25 Rx (2.5 mg base)/3 mL nebulization #90 mL soln nebulizers (Compact Compressor #1 ea 07/31/24 11/06/25 Rx Nebulizer) Oxygen Home 01/30/25 11/06/25 History acetylcysteine 200 mg/mL (20 %) 2 ml inhalation BID PRN Chest 03/26/25 11/07/25 Rx solution congestion #100 mL sodium chloride 7 % for 1 inh inhalation BID #240 mL 03/26/25 11/07/25 Rx nebulization FreeStyle Rosalie 2 Sensor (flash #6 ea 05/06/25 11/06/25 Rx glucose sensor) naloxone 4 mg/actuation nasal 1 spray intranasal ONCE PRN opioid 05/18/25 11/07/25 Rx spray (Narcan) overdose #2 ea somatropin 5 mg/1.5 mL (3.3 mg/mL) 3 mg subcut QPM 05/29/25 11/07/25 History subcutaneous pen injector (Norditropin FlexPro) FreeStyle Rosalie 2 Plus Sensor #6 ea 06/04/25 11/06/25 Rx (blood-glucose sensor) albuterol sulfate 90 mcg/actuation 2 inh inhalation Q6H PRN shortness 07/01/25 11/07/25 Rx aerosol inhaler (Ventolin HFA) of breath or wheezing #6.7 grams lacosamide 150 mg tablet 150 mg PO BID 08/06/25 11/07/25 History ramelteon 8 mg tablet 8 mg PO QPM 08/06/25 11/07/25 History propranolol 120 mg capsule,24 120 mg PO HS #90 caps 08/12/25 11/07/25 Rx hr,extended release divalproex 500 mg tablet,extended 1,000 mg PO QAM 09/11/25 11/07/25 History release 24 hr insulin glargine 100 unit/mL (3 12 unit subcut HS 09/14/25 11/07/25 History mL) subcutaneous pen (Lantus Solostar U-100 Insulin) arformoterol 15 mcg/2 mL solution 2 ml inhalation BID PRN Shortness 10/29/25 11/07/25 History for nebulization (Brovana) Of Breath Or Wheezing budesonide 0.5 mg/2 mL suspension 0.5 mg inhalation AMHS 10/29/25 11/07/25 History for nebulization ascorbic acid (vitamin C) 250 mg 250 mg PO BID #60 tabs 11/04/25 11/07/25 Rx tablet desmopressin 0.2 mg tablet 0.4 mg (2 x 0.2 mg) PO BID #120 11/04/25 11/07/25 Rx tabs docusate sodium 100 mg capsule 100 mg PO BID 30 days #60 caps 11/04/25 11/07/25 Rx levothyroxine 200 mcg tablet 200 mcg PO QAM #90 tabs 11/04/25 11/07/25 Rx magnesium oxide 400 mg (241.3 mg 400 mg PO HS #28 tabs 11/04/25 11/07/25 Rx magnesium) tablet vitamin B complex (Vitamins B 1 cap PO QAM #30 caps 11/04/25 11/07/25 Rx Complex capsule) duloxetine 60 mg capsule,delayed 60 mg PO DAILY 11/05/25 11/07/25 History release hydrocortisone 10 mg tablet 20 mg (2 x 10 mg) PO QAM #90 tabs 11/05/25 11/07/25 Rx melatonin 5 mg capsule 0 mg PO HS PRN Sleep 11/05/25 11/07/25 History oxycodone 5 mg tablet 5 mg PO Q6H PRN Pain 11/05/25 11/07/25 History rimegepant 75 mg disintegrating 75 mg PO DAILY PRN migraine 11/05/25 11/07/25 Rx tablet (Nurtec ODT) headache #10 tabs aspirin 81 mg tablet 81 mg PO DAILY 11/06/25 11/07/25 History cholecalciferol (vitamin D3) 50 50 mcg PO QPM #90 caps 11/06/25 11/07/25 Rx mcg (2,000 unit) capsule clopidogrel 75 mg tablet 75 mg PO QPM #90 tabs 11/06/25 11/07/25 Rx dutasteride 0.5 mg capsule 0.5 mg PO QAM #90 caps 11/06/25 11/07/25 Rx famotidine 20 mg tablet 20 mg PO QAM #90 tabs 11/06/25 11/07/25 Rx ferrous sulfate 325 mg (65 mg 325 mg PO BID #90 tabs 11/06/25 11/07/25 Rx iron) tablet gabapentin 300 mg capsule 300 mg PO DAILY 11/06/25 11/07/25 History levetiracetam 250 mg tablet 250 mg PO BID #90 tabs 11/06/25 11/07/25 Rx lisinopril 10 mg tablet 80 mg (8 x 10 mg) PO QPM #112 tabs 11/06/25 11/07/25 Rx meclizine 25 mg tablet 25 mg PO DAILY PRN Dizziness Or 11/06/25 11/07/25 History Vertigo prazosin-polythiazide 5 mg-0.5 mg 0 cap PO UD 11/06/25 11/07/25 History capsule pregabalin 50 mg capsule (Lyrica) 50 mg PO DAILY 11/06/25 11/07/25 History risperidone 2 mg tablet 2 mg PO DAILY 11/06/25 11/07/25 History Past Med/Surg History Problem List (Updated 11/07/25 @ 14:03 by Travis Tillman M.D.) Weakness (Acute) Lethargy Adrenal crisis Non-ST elevation NV (NSTEMI) (Acute) Hypopituitarism (Acute) Rhabdomyolysis (Acute) Elevated troponin Rhabdomyolysis Adjustment disorder with mixed anxiety and depressed mood Palliative care by specialist QUENTIN (acute kidney injury) (Acute) Hypomagnesemia (Acute) Ambulatory dysfunction (Acute) Nonadherence to medication PTSD (post-traumatic stress disorder) Diabetes insipidus Chronic anemia (Acute) Vision loss, left eye Entered 05/2025 Hypopituitarism Psychogenic nonepileptic seizure Asthma Presbyopia of both eyes Epiretinal membrane (ERM) of left eye Ocular hypertension Demyelinating disease Esophageal dysphagia 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 tested positive in Aug 2023 [place] Current use of proton pump inhibitor Chronic migraine without aura or status migrainosus Ulcerative colitis Mixed hyperlipidemia Lumbar stenosis with neurogenic claudication Essential tremor Mitral regurgitation Anti-cyclic citrullinated peptide antibody positive Internal hemorrhoids Prostate mass benign Medical History Lethargy Chronic respiratory failure with hypoxia Acute hypokalemia Hypomagnesemia Atrial tachycardia Calcium nephrolithiasis Seizure disorder Intractable back pain Bilateral nephrolithiasis Compartment syndrome of lower extremity Venous stasis ulcers Chronic venous insufficiency Secondary cataract of left eye with vision obscured Combined form of senile cataract of right eye CHF (congestive heart failure) COPD (chronic obstructive pulmonary disease) Arachnoid cyst of posterior cranial fossa BPH with obstruction/lower urinary tract symptoms Right leg pain Blood loss anemia (06/2025) Therapeutic opioid-induced constipation (OIC) Bipolar 1 disorder Back pain at L4-L5 level Hypokalemia Frequent falls Generalized weakness Generalized pain Hypomagnesemia Hyperphosphatemia CHI (closed head injury) Kidney stones History of pneumonia (03/2025) Ocular hypertension Ulcerative colitis Mixed hyperlipidemia Lumbar stenosis with neurogenic claudication Idiopathic polyneuropathy Essential tremor Demyelinating disease Compartment syndrome of lower extremity (02/2025) Chronic venous insufficiency Depression with anxiety On home O2 History of recent hospitalization Urinary tract obstruction due to kidney stone LPRD (laryngopharyngeal reflux disease) Uncontrolled type 2 diabetes mellitus with hyperglycemia Hypothyroidism Non-occlusive coronary artery disease Chronic narcotic dependence Restrictive lung disease Obstructive sleep apnea Pituitary hypogonadism Secondary adrenal insufficiency Transient alteration of awareness Migraine Growth hormone deficiency Closed fracture of right fibula with malunion Shortness of breath Obesity CKD (chronic kidney disease), stage III Atrial fibrillation (02/15/24) Panhypopituitarism Syncope and collapse Recurrent seizures Pituitary diabetes insipidus Spondylolysis, lumbar region Right lumbar radiculopathy HTN (hypertension) Adrenal insufficiency Hyperactive gag reflex Epidural lipomatosis Chronic left sacroiliac pain Presence of cardiac device Cerebral concussion Orthostatic hypotension Sensorineural hearing loss of both ears Rectal bleeding History of COVID-19 Mitral valve regurgitation Vertigo Lower extremity edema Bilateral hand pain Pituitary neoplasm Bladder mass Surgical History Hx of flexible sigmoidoscopy (07/03/25) History of open reduction and internal fixation (ORIF) procedure (2009) Presence of Watchman left atrial appendage closure device (02/2024) History of arthroplasty of left knee (2014) S/P TURP (status post transurethral resection of prostate) History of lumbar fusion (07/2022) History of cardiac cath (07/2021) S/P epidural steroid injection History of lithotripsy History of bladder surgery History of prostate surgery (2016) History of colonoscopy History of esophagogastroduodenoscopy (EGD) History of tooth extraction History of wisdom tooth extraction History of brain surgery (2017) Family History Grandmother (Paternal) Family history of diabetes mellitus Aunt Family history of diabetes mellitus Uncle Family history of diabetes mellitus Father Prostate cancer Heart disease Osteoarthritis Mother Cardiac disorder Grandmother (Maternal) Myocardial infarction Other Asthma Cancer Hypertension No family history of adverse response to anesthesia No family history of bleeding disorder Stroke Denies family history of Ovarian cancer Breast cancer Colorectal cancer Social History Smoking Status: Never smoker Tobacco Type: Smokeless Tobacco (Dip or Chew) Second Hand Exposure: No; Do You Dip or Chew Tobacco: No; Hx Alcohol Use: No Hx Substance Use: No Preferred Language: Czech Communication Ability: Effective Communication Ability Comment: Unable to obtain due to patient condition. Visual Impairment: Limited Hearing Ability: Normal Lithographic Photographer Required: No Beliefs That Will Affect Care: Buddhism marital status: Single Current Living Situation: Spouse Current Living Situation Comment: and daughter in [place] current occupational status: disabled How many Children do You have: 3 How many Children do You have Comment: able to assist with care if needed Other Information That Helps Us Care for You: No Feels Safe at Home: Yes Safety Concerns: Feels Safe At This Time Childhood Exposure to Second-Hand Smoke: Yes (parents smoked) Diet: regular Diet Comment: going to be starting low carb/low calorie diet. caffeine: No (1/2 20 oz bottle of mountain dew. ) during the past year weight has: increased > 10 lbs Physical Activity Frequency: Daily Physical Activity Frequency Comment: walking, 1.5 miles daily. Seatbelt Use: always Do you think of yourself as: straight/heterosexual Gender Identity: Male Assistive Devices: Cane and Scooter/Electric Scooter Review of Systems Review of Systems: CONST: Negative for fever, body aches and chills. HENT: Negative for neck pain/stiffness, headache, congestion, sore throat, swelling. EYES: Negative for discharge/pain or vision changes. RESP: Negative for cough/hemoptysis and shortness of breath. CV: Negative chest pain, difficulty breathing, palpitations. ABD: Negative pain, nausea, vomiting. : Negative increase frequency, dysuria, blood in urine or stool. MUSC: Negative for muscle aches, edema. SKIN: Negative rash, lesions/sores. NEURO:+AMS, weakness. Physical Exam Physical Exam: GENERAL APPEARANCE NAD, activity normal for age, well developed/ well nourished, no cyanosis, pallor, or diaphoresis. EYES lids/conjunctiva normal. EARS/NOSE/THROAT Mucous membranes moist, nares normal, lips/teeth normal uvula midline without oral pharyngeal erythema, exudate or swelling TMs normal bilaterally. No lymphangitis/lymphedema. HEAD/NECK normocephalic atraumatic, no facial trauma, neck is supple. RESPIRATORY respiratory effort normal, speaks in full sentences, no tripod position, no accessory muscle use. Lungs clear to auscultation without rhonchi, wheezes, rales CARDIAC Regular rate and rhythm, no edema. ABDOMINAL Soft, ND/NT. No evidence of fluid wave. No pulsatile masses on exam, rebound tenderness, Moore sign or pain over Mcburney's point. MUSCLES/EXTREMITIES No abnormal range of motion, no swelling. SKIN Warm, pink and dry. No rashes, dermatoses, petechiae or lesions. NEUROLOGICAL Speech is clear and appropriate. Normal level of consciousness. Gait and coordination are normal. 5/5 strength in all extremities. PSYCH Normal mood and affect. Judgement/competence is appropriate Results & Data Results & Data Vital Signs (Past 12 Hours) Vital Signs Temp Pulse Pulse Resp BP BP Pulse Ox 11/07/25 12:00 79 22 144/77 H 96 11/07/25 09:50 36.8 C 106 H 24 103/75 96 11/07/25 09:50 96 11/07/25 09:48 97 H 11/07/25 09:44 106 H 24 96 11/07/25 09:44 36.8 C 106 H 24 103/75 96 O2 Del Method 11/07/25 12:00 Room Air 11/07/25 09:50 Room Air 11/07/25 09:50 Room Air 11/07/25 09:48 11/07/25 09:44 Room Air 11/07/25 09:44 Room Air PG Care Time/CCT Total # of Minutes Spent Total Time Spent with Patient: Total time spent is greater than 50% in coordination of care (as documented) at patient's floor/unit and/or counseling patient: Coding Level of Care Code 62886 INT INP/OBS CARE 2/55MIN Diagnoses AMS (altered mental status) R41.82 Altered mental status type: unspecified Hypopituitarism E23.0 Diabetes insipidus E23.2 Psychogenic nonepileptic seizure F44.5 Asthma J45.909 Intractable back pain M54.9 Bipolar disorder F31.9 CHF (congestive heart failure) I50.9 (1) AMS (altered mental status) Altered mental status type: unspecified Qualified Code(s): R41.82 - Altered mental status, unspecified
[2025-11-07] MEDS ORDERED: CARBOHYDRATES FOR HYPOGLYCEMIA PO PRN (13:45)
[2025-11-07] MEDS ORDERED: GLUCAGON FOR INJ 1 MG VIAL SQ PRN (13:45)
[2025-11-07] MEDS ORDERED: GLUCOSE 10 TAB/TUBE PO PRN (13:45)
[2025-11-07] MEDS ORDERED: DEXTROSE 50% 50 ML SYRINGE IV PRN (13:45)
[2025-11-07] MEDS ORDERED: GLUCOSE 40% GEL 15 GM TUBE PO PRN (13:45)
[2025-11-07] MEDS: SODIUM CHLORIDE 0.9% 1,000 ML IV SCH (14:01)
[2025-11-07] MEDS: HYDROCORTISONE SOD 50 MG in SYRINGE 0 ML IV SCH (15:09)
[2025-11-07] MEDS: INSULIN ASPART PER UNIT CHARGE SC SCH (16:42)
[2025-11-07] MEDS: ASCORBIC ACID 500 MG TAB PO SCH (16:43)
[2025-11-07] MEDS: FERROUS SULFATE 325 MG TAB PO SCH (16:43)
[2025-11-07] MEDS: SODIUM CHLOR 7% 4 ML NEB INH SCH (19:48)
[2025-11-07] MEDS: BUDESONIDE 0.5 MG/2 ML VIAL (PULMICORT) INH SCH (19:48)
[2025-11-07] MEDS ORDERED: LANTUS PER UNIT CHARGE SC SCH (21:00)
[2025-11-07] MEDS: MAGNESIUM OXIDE 400 MG TAB PO SCH (21:16)
[2025-11-07] MEDS: levETIRAcetam 250 MG TAB PO SCH (21:16)
[2025-11-07] MEDS: DESMOPRESSIN ACETATE 0.1 MG TAB PO SCH (21:16)
[2025-11-07] MEDS: CLOPIDOGREL BISULFATE 75 MG TAB PO SCH (21:16)
[2025-11-07] MEDS: CHOLECALCIFEROL 25 MCG (1000 UNITS) TAB PO SCH (21:16)
[2025-11-07] MEDS: DOCUSATE SODIUM 100 MG CAP PO SCH (21:17)
[2025-11-07] MEDS: PROPRANOLOL HCL 60 MG LA CAP PO SCH (21:17)
[2025-11-07] MEDS: LANTUS PER UNIT CHARGE SC SCH (21:18)
[2025-11-07] MEDS: LACOSAMIDE 50 MG TABLET PO SCH (21:38)
--- NOTE | 2025-11-07 21:45 | Electrocardiogram Report ---
Test Reason : Blood Pressure : */* mmHG Vent. Rate : 104 BPM Atrial Rate : 105 BPM P-R Int : 146 ms QRS Dur : 82 ms QT Int : 364 ms P-R-T Axes : 63 9 57 degrees QTcB Int : 478 ms Sinus tachycardia Nonspecific T wave abnormality Abnormal ECG When compared with ECG of 31-Oct-2025 06:18, Nonspecific T wave abnormality now evident in Lateral leads Confirmed by Og Cooper ([id number]) on 11/07/2025 9:44:57 PM Referred By: Confirmed By: Og Cooper
[2025-11-07] MEDS: ACETAMINOPHEN 325 MG TAB PO PRN (21:50)
[2025-11-08] MEDS: LEVOTHYROXINE SODIUM 200 MCG TABLET PO SCH (05:19)
[2025-11-08] MEDS: FORMOTEROL 20 MCG/2 ML VIAL INH PRN (07:11)
[2025-11-08 07:17] LABS: Anion Gap 9.0 (3-11); Blood Urea Nitrogen 10.0 mg/dl (6-23); Calcium 9.1 mg/dl (8.6-10.3); Carbon Dioxide 26.0 mmol/L (21-32); Chloride 103.0 mmol/L (98-107); Creatinine Clr Calc Pharmacy 129.2 ml/min; Glucose 157.0 mg/dl (70-99(Fasting)); Potassium 4.6 mmol/L (3.5-5.1); Sodium 138.0 mmol/L (136-145)
[2025-11-08 07:21] LABS: Hematocrit (blood only) 38.8 % (42.0-52.0); Hemoglobin 13.4 g/dL (14.0-18.0); Mean Corpuscular Hemoglobin 29.8 pg (25.0-34.0); Mean Corpuscular Volume 86.4 fL (80.0-100.0); Platelet Count 199 K/uL (130-400); RDW Standard Deviation 42.6 fL (36.4-46.3); Red Blood Count 4.49 M/uL (4.70-6.10); White Blood Count 19.73 K/ul (4.8-10.8)
[2025-11-08] MEDS: DIVALPROEX EXTENDED RELEASE 500 MG TAB PO SCH (08:43)
[2025-11-08] MEDS: PREGABALIN 50 MG CAP PO SCH (08:43)
[2025-11-08] MEDS: FINASTERIDE 5 MG TAB PO SCH (08:44)
[2025-11-08] MEDS: FAMOTIDINE 20 MG TAB PO SCH (08:44)
[2025-11-08] MEDS: GABAPENTIN 300 MG CAP PO SCH (08:45)
[2025-11-08] MEDS: ASPIRIN 81 MG ECTAB PO SCH (08:45)
[2025-11-08] MEDS: POLYETHYLENE (MIRALAX) 17 GM PACK PO PRN (08:55)
[2025-11-08] MEDS ORDERED: HYDROCORTISONE SOD 50 MG in SYRINGE 0 ML IV SCH (09:00)
--- NOTE | 2025-11-08 10:14 | Discharge Summary ---
Discharge Summary Date of Service November 08, 2025 Principal Dx & Hospital Course #1 = Principal Diagnosis (1) AMS (altered mental status): -CT head negative -possible adrenal crisis vs med related etiology -treated with hydrocortisone IV 50mg IV Q6hrs and NS IVF -f/u cortisol level -BP currently stable -observation in PCU -PT evaluation -patient returned to baseline, stable for discharge home (2) Hypopituitarism: -con't hydrocortisone -levothyroxine -desmopressin (3) Diabetes insipidus: -pharm consult for glycemic managment -lantus (4) Psychogenic nonepileptic seizure: -levetiracetam -divalproex -lacosamide (5) Asthma: -ipratropium prn (6) Intractable back pain: -pregabalin -oxycodone -palliative care consulted (7) Bipolar disorder: -risperidone (8) CHF (congestive heart failure): -aspirin -plavix -propranolol -lisinopril Admission HPI Per Admitting Provider Pt is a 55 year old male with PMH hypopituitary is him with history of adrenal crisis, chronic back pain, PTSD, diabetes insipidus, bipolar disorder presenting here today as a rapid response from radiation oncology. He had presented there today for a palliative discussion due to his chronic pain. Patient was noted there to be weak and lethargic and have a pulse of about 118 and a blood pressure in the 50s systolic. A rapid response was then called and patient was brought to the ER. He was noted to be lethargic and drowsy. He head CT was negative. Pt has had history of adrenal crisis in the past and was given a dose of hydrocortisone IV along with IVF. Pt remained sluggish and was unable to be discharged home. He is also take opiod pain medications and it is not clear if he may be taking additional doses. He will be admitted for further treatment of possible adrenal crisis and additional observation for his AMS. Discharge Exam GENERAL APPEARANCE NAD, activity normal for age, well developed/ well nourished, no cyanosis, pallor, or diaphoresis. EYES lids/conjunctiva normal. EARS/NOSE/THROAT Mucous membranes moist, nares normal, lips/teeth normal uvula midline without oral pharyngeal erythema, exudate or swelling TMs normal bilaterally. No lymphangitis/lymphedema. HEAD/NECK normocephalic atraumatic, no facial trauma, neck is supple. RESPIRATORY respiratory effort normal, speaks in full sentences, no tripod position, no accessory muscle use. Lungs clear to auscultation without rhonchi, wheezes, rales CARDIAC Regular rate and rhythm, no edema. ABDOMINAL Soft, ND/NT. No evidence of fluid wave. No pulsatile masses on exam, rebound tenderness, Moore sign or pain over Mcburney's point. MUSCLES/EXTREMITIES No abnormal range of motion, no swelling. SKIN Warm, pink and dry. No rashes, dermatoses, petechiae or lesions. NEUROLOGICAL Speech is clear and appropriate. Normal level of consciousness. Gait and coordination are normal. 5/5 strength in all extremities. PSYCH Normal mood and affect. Judgement/competence is appropriate Discharge Plan Discharge Items Patient Disposition: Home - Self-Care Reason For Visit: AMS, RAPID RESPONSE AT [facility] ON[facility] Discharge Diagnosis: AMS Condition on Discharge: Fair Activity: Resume your previous activity Non-emergency contact: Primary Care Provider Call non-emergency contact if: you have any medication questions Follow-up/Referrals: ProLarry MD [Primary Care Provider] - Diet: Regular Addtl Attending Provider Instructions: Follow up with PMD in 2 weeks Pending Studies at Discharge: No Stand-Alone Forms: My [email or web address], Smoking Cessation Medications and DC Order Prescriptions: Continued fluticasone propionate [Flonase Allergy Relief] 50 mcg/actuation spray,suspension 1 spray intranasal HS PRN (Reason: allergy symptoms) Qty: 16 0RF Rx Instructions: administer into each nostril (DME) OneTouch Verio test strips Strip See Rx Instructions .MEDSUPPLY Qty: 150 5RF Rx Instructions: check blood sugars 4 times a day (DME) blood-glucose meter [OneTouch Verio Reflect Meter] Mis See Rx Instructions miscellaneous .MEDSUPPLY Qty: 1 0RF Rx Instructions: As directed (DME) lancets [OneTouch Delica Plus Lancet] 33 gauge misc See Rx Instructions .MEDSUPPLY Qty: 150 5RF Rx Instructions: As directed check blood sugars 4 times a day (DME) Oxygen Home Liters Per Minute See Rx Instructions .Route Rx Instructions: 4 L o2 via NC As directed, (DME) FreeStyle Rosalie 2 Sensor Kit See Rx Instructions .Route Qty: 6 3RF Rx Instructions: Change every 14 days (DME) FreeStyle Rosalie 2 Plus Sensor Device See Rx Instructions .Route Qty: 6 3RF Rx Instructions: change every 15 days propranolol 120 mg capsule,extended release 24hr 120 mg PO HS Qty: 90 3RF desmopressin 0.2 mg tablet 0.4 mg PO BID Qty: 120 5RF magnesium oxide 400 mg (241.3 mg magnesium) tablet 400 mg PO HS Qty: 28 0RF Hold Instructions: hold until diarrhea resolved - magnesium supplement can cause diarrhea docusate sodium 100 mg capsule 100 mg PO BID 30 Days Qty: 60 1RF Patient Comments: 09/14- otc unable to verify vitamin B complex [Vitamins B Complex] Capsule 1 cap PO QAM Qty: 30 0RF ascorbic acid (vitamin C) 250 mg tablet 250 mg PO BID Qty: 60 2RF levothyroxine 200 mcg tablet 200 mcg PO QAM Qty: 90 3RF levetiracetam 250 mg tablet 250 mg PO BID Qty: 90 3RF cholecalciferol (vitamin D3) 50 mcg (2,000 unit) capsule 50 mcg PO QPM Qty: 90 1RF clopidogrel 75 mg tablet 75 mg PO QPM Qty: 90 0RF dutasteride 0.5 mg capsule 0.5 mg PO QAM Qty: 90 2RF famotidine 20 mg tablet 20 mg PO QAM Qty: 90 0RF ferrous sulfate 325 mg (65 mg iron) tablet 325 mg PO BID Qty: 90 1RF (DME) FreeStyle Rosalie 2 [place] Misc See Rx Instructions .Route Qty: 1 0RF Rx Instructions: Check blood glucose before each meal meclizine 25 mg tablet 25 mg PO DAILY PRN (Reason: Dizziness Or Vertigo) aspirin 81 mg tablet 81 mg PO DAILY prazosin-polythiazide 5-0.5 mg capsule 0 cap PO UD Patient Comments: 11/07- no fill history unable to verify gabapentin 300 mg capsule 300 mg PO DAILY risperidone 2 mg tablet 2 mg PO DAILY lisinopril 10 mg tablet 80 mg PO QPM Qty: 112 0RF Rx Instructions: === PLEASE VERIFY DOSE IN OFFICE-patient reports he is taking 80 mg of lisinopril each evening pregabalin [Lyrica] 50 mg capsule 50 mg PO DAILY (DME) nebulizers [Compact Compressor Nebulizer] Misc See Rx Instructions .Route Qty: 1 0RF Rx Instructions: One compact compressor nebulizer. Use as directed. Please include tubing, mouth piece and cup. ipratropium-albuterol 0.5 mg-3 mg(2.5 mg base)/3 mL solution for nebulization 3 ml inhalation QID PRN (Reason: wheezing) Qty: 90 0RF albuterol sulfate [Ventolin HFA] 90 mcg/actuation HFA aerosol inhaler 2 inh inhalation Q6H PRN (Reason: shortness of breath or wheezing) Qty: 6.7 2RF sodium chloride 7 % solution for nebulization 1 inh inhalation BID Qty: 240 3RF acetylcysteine 200 mg/mL (20 %) solution 2 ml inhalation BID PRN (Reason: Chest congestion) Qty: 100 6RF hydrocortisone 10 mg tablet 20 mg PO QAM Qty: 90 3RF Rx Instructions: 2 tabs (20mg) in AM, 1 tab (10mg) in 2 PM double dose in times of stress Nurtec ODT 75 mg tablet,disintegrating 75 mg PO DAILY PRN (Reason: migraine headache) Qty: 10 0RF melatonin 5 mg capsule 0 mg PO HS PRN (Reason: Sleep) Rx Instructions: 7.5 mg po hs PRN sleep duloxetine 60 mg capsule,delayed release(DR/EC) 60 mg PO DAILY Rx Instructions: Pt still taking this- See [facility] dc dates- oxycodone 5 mg tablet 5 mg PO Q6H PRN (Reason: Pain) Rx Instructions: Patient states this was prescribed by palliative med, Dr. Michelle Castellonimi 3 mg/actuation spray,non-aerosol 3 mg intranasal DIRECTED PRN (Reason: Severe Hypoglycemia) Rx Instructions: for treatment of severe hypoglycemia, second dose may be given if patient does not respond after 15 minutes . Per caregiver, pt has never has to use this medication. Norditropin FlexPro 5 mg/1.5 mL (3.3 mg/mL) pen injector 3 mg SQ QPM budesonide 0.5 mg/2 mL suspension for nebulization 0.5 mg inhalation [facility] arformoterol [Brovana] 15 mcg/2 mL solution for nebulization 2 ml inhalation BID PRN (Reason: Shortness Of Breath Or Wheezing) divalproex 500 mg tablet extended release 24 hr 1,000 mg PO QAM naloxone [Narcan] 4 mg/actuation spray,non-aerosol 1 spray intranasal ONCE PRN (Reason: opioid overdose) Qty: 2 2RF ramelteon 8 mg tablet 8 mg PO QPM lacosamide 150 mg tablet 150 mg PO BID Patient Comments: rx'd by Dr. Ordonez insulin glargine [Lantus Solostar U-100 Insulin] 100 unit/mL (3 mL) insulin pen 12 unit SUBCUT HS Discharge Orders: Discharge Order (Routine); Ordered 11/08/25 Ordered By: Marcial Garcia Admission Data Admit Date/Time: 11/07/25 12:57 Attending Provider: Marcial Garcia Admit Provider: Marcial Garcia Primary Care Provider: Larry Amaral Other Providers: Marcial Garcia; Aide Beck; Margarette Lindo Hospital Stay Data Consultations 11/07/25 13:13 ED Decision to Admit Stat 11/07/25 15:58 Consult Palliative Care Routine Diagnostic Imagining Performed 11/07/25 10:16 CT abd pelvis wo con Stat CT head/brain wo con Stat Pending Results Patient Have Any Pending Studies at Discharge: No Discharge Instructions Given to Patient (Per Discharging Provider) Follow up with PMD in 2 weeks Total Time Total Time Spent Total Time Spent (In Minutes): 50 Coding Level of Care Code 35726 INP/OBS DISCH >30 MIN Diagnoses AMS (altered mental status) R41.82 Altered mental status type: unspecified Hypopituitarism E23.0 Diabetes insipidus E23.2 Psychogenic nonepileptic seizure F44.5 Asthma J45.909 Intractable back pain M54.9 Bipolar disorder F31.9 CHF (congestive heart failure) I50.9
[2025-11-08 11:25] VITALS: BP 137/72; PULSE 80; RESP 20; TEMP 98.2; O2SAT 94
[2025-11-09] MEDS ORDERED: HYDROCORTISONE SOD 50 MG in SYRINGE 0 ML IV SCH (09:00)
== END 2025-11-08 11:51 | disposition home or self-care (01) ==
LOC: ED 09:39 → INTOOBSV 12:57 → 2S 12:57